=== PATIENT | male | born 1960 | race Caucasian/White ===

== ENCOUNTER 2019-07-04 17:18 | Emergency (ER) | payer BC, SELFPAY ==
--- NOTE | ~2019-07-04 | XR_ITS ---
EXAMINATION: XR chest 2V DATE: 07/04/2019 17:56 INDICATION: Midsternal chest pain TECHNIQUE: PA and lateral views of the chest are obtained. COMPARISON: 12/15/2016 FINDINGS: There is questionable narrowing of the mid thoracic trachea. The lungs are free of acute op acities. There is no pleural effusion or pneumothorax. The cardiomediastinal silhouette is normal. Th ere is mild thoracic spondylosis. IMPRESSION: 1. No acute cardiopulmonary abnormality. 2. Possible narrowing of the mid thoracic trachea. Recommend further evaluation with CT of the chest. Reviewed, dictated and finalized at location A.
[2019-07-04 17:20] VITALS: BP 142/68; PULSE 87; RESP 16; TEMP 36.6; O2SAT 95
--- NOTE | 2019-07-04 17:33 | ECG_ITS ---
Measurements Intervals [place] Rate: 86 P: 17 RI: 114 QRS: 54 QRSD: 112 T: 46 QT: 364 QTc: 436 Interpretive Statements SINUS RHYTHM WITH SHORT RI INTERVAL LOW QRS VOLTAGE IN PRECORDIAL LEADS INCOMPLETE RIGHT BUNDLE BRANCH BLOCK BASELINE ARTIFACT- I, II, III, AVR, AVL, AVF BORDERLINE ECG Electronically Signed On 07-05-2019 8:43:20 CDT by Pedro Bassett D.O.
--- NOTE | 2019-07-04 17:43 | ED.GENADULT ---
HPI - General Adult General Chief complaint: Shortness of Breath/Dyspnea Stated complaint: leg pain, chest pain, sore throat History of Present Illness HPI narrative: Evaristo is a 59M with a past medical history coronary artery disease, A-fib, diabetes, hypertension and hyperlipidemia that was referred to the emergency department by his primary care physician for chest pain, leg heaviness and sore throat. Yesterday morning started noticing some pain and heaviness in his legs. Later he noticed the tight chest pain and sore throat. He denies any nausea, vomiting, shortness of breath and syncope/near-syncope Related Data Home Medications Medication Instructions Recorded Confirmed amitriptyline 50 mg PO DAILY 07/04/19 07/04/19 atorvastatin 40 mg PO HS 07/04/19 07/04/19 dabigatran etexilate [Pradaxa] 150 mg PO DAILY 07/04/19 07/04/19 furosemide 20 mg PO DAILY 07/04/19 07/04/19 gabapentin 300 mg PO TID 07/04/19 07/04/19 insulin aspart U-100 [Novolog 0 unit SUBCUT DAILY 07/04/19 07/04/19 Flexpen U-100 Insulin] insulin detemir U-100 [Levemir 0 unit SUBCUT DAILY 07/04/19 07/04/19 FlexTouch U-100 Insuln] isosorbide mononitrate 30 mg PO DAILY 07/04/19 07/04/19 metformin 850 mg PO DAILY 07/04/19 07/04/19 metoprolol succinate 50 mg PO DAILY 07/04/19 07/04/19 spironolactone 25 mg PO DAILY 07/04/19 07/04/19 tamsulosin 0.4 mg PO DAILY 07/04/19 07/04/19 tramadol 50 mg PO PRN 07/04/19 07/04/19 Allergies Allergy/AdvReac Type Severity Reaction Status Date / Time doxycycline Allergy Unknown Verified 07/04/19 17:58 Review of Systems Constitutional: Constitutional: Denies chills, Reports fatigue, Denies fever(s) and Reports weakness Eyes: Eyes: Reports no additional eye complaints ENT: Reports system reviewed and no additional complaints, except as documented Cardiovascular: Cardiovascular: Reports as per HPI Respiratory: Respiratory: Reports as per HPI Gastrointestinal: Gastrointestinal: Reports as per HPI Genitourinary: Genitourinary: Reports no additional male genitourinary complaints Musculoskeletal: Musculoskeletal: Reports no additional musculoskeletal complaints Integumentary/Breasts: Skin/Breast: Reports system reviewed and no additional complaints, except as docu Neurologic: Reports system reviewed and no additional complaints, except as documented Psychiatric: Psychiatric: Reports no additional psychiatric complaints Endocrine: Endocrine: Reports no additional endocrine complaints Hematologic/Lymphatic: Hematologic/Lymphatic: Reports no additional hematologic/lymphatic complaints Allergic/Immunologic: Allergic/Immunologic: Reports no additional allergic/immunologic complaints Exam Const: General: no acute distress and alert; No confusion Orientation/consciousness: patient oriented x3 Limitations: No altered mental status HENMT: Head: normal to inspection Other: normocephalic, atraumatic, EOMI, moist mucous membranes, normal oropharynx, no lymphadenopathy Eyes: Conjunctivae: conjunctivae normal Pupils: Equal, round and reactive pupils present Neck: Neck: normal visual inspection and no lymphadenopathy Chest: Chest palpation & inspection: normal inspection of the chest Other: No TTP Resp: Effort & Inspection: normal respiratory effort Auscultation: clear to auscultation bilaterally and no wheezes Cardio: Rate: regular rate Rhythm: regular rhythm Heart sounds: no murmurs GI: Inspection: non-distended GI Palp: Yes Soft to palpation and No Tenderness to palpation present (GI) Skin: General skin exam: normal color Rashes: no rashes Neuro: General: patient oriented x3 and moves all extremities Extrem: General: normal to inspection Psych: Mental Status: mental status grossly normal Course Course Emergency Course: Evaristo was seen and evaluated. Given his medical history I was concerned for a cardiac etiology. I ordered CXR, EKG and labs. EKG was normal sinus rhythm with a rate of 86, No ST
[2019-07-04 17:49] LABS: Basophils Absolute Auto 0.08 K/mm3 (0.00-0.10); Basophils Percent Auto 1.2 % (0.0-1.0); Eosinophils Absolute Auto 0.17 K/mm3 (0.02-0.50); Eosinophils Percent Auto 2.6 % (1.0-6.0); Hematocrit 38.1 % (40.0-54.0); Hemoglobin 12.4 g/dL (14.0-18.0); Immature Granulocyte Absolute 0.02 K/mm3 (0.00-0.00); Immature Granulocyte Percent A 0.3 % (0.0-0.0); Lymphocytes Absolute Auto 1.87 K/mm3 (1.10-4.50); Lymphocytes Percent Auto 28.1 % (18.0-42.0); Mean Corpuscular HGB Conc 32.5 g/dL (32.0-36.0); Mean Corpuscular Hemoglobin 28.2 pg (27.0-31.0); Mean Corpuscular Volume 86.8 fL (78.0-102.0); Mean Platelet Volume 10.9 fl (8.7-11.0); Monocytes Percent Auto 13.5 % (2.0-11.0); Neutrophils Absolute Auto 3.6 K/mm3 (1.7-7.2); Neutrophils Percent Auto 54.3 % (50.0-70.0); Platelet Count Result 287 K/mm3 (150-420); Red Blood Count 4.39 M/mm3 (4.70-6.10); Red Cell Distribution Width 13.7 % (11.6-14.4); White Blood Count 6.7 K/mm3 (4.8-10.8)
[2019-07-04] MEDS: NITROGLYCERIN SL 0.4 MG TABLET SUBLINGUAL (17:55)
[2019-07-04] MEDS: ASPIRIN 81 MG CHEWABLE TABLET 324 MG PO (17:55)
[2019-07-04 18:02] LABS: INR 1.2; Prothrombin Time 11.9 Seconds (9.64-11.0)
[2019-07-04 18:07] LABS: Alanine Aminotransferase 31 U/L (16-63); Albumin Level 3.3 g/dL (3.4-5.0); Alkaline Phosphatase 76 U/L (46-116); Anion Gap 14.4 mmol/L (7-16); Aspartate Amino Transferase 15 U/L (15-37); Bilirubin,Total 0.2 mg/dL (0.00-1.00); Blood Urea Nitrogen 13 mg/dL (7-18); Calcium 8.9 mg/dL (8.5-10.1); Carbon Dioxide 27 mmol/L (21-32); Chloride 102 mmol/L (98-108); Estimated Glomerular Filt Rate > 60; Glucose 175 mg/dL (70-99); Osmolality Calculated 292 mOsm/kg (285-295); Potassium 4.4 mmol/L (3.5-5.1); Sodium 139 mmol/L (136-145)
[2019-07-04 18:09] LABS: Troponin I < 0.02 ng/mL (0.00-0.056)
[2019-07-04 18:09] LABS: Influenza Control Valid (Valid)
[2019-07-04 18:10] LABS: BNP 44.3 pg/mL (0-100)
[2019-07-04 18:54] VITALS: BP 105/56; PULSE 84; RESP 20; O2SAT 98
== END 2019-07-04 18:55 | disposition home or self-care (01) ==
PROVIDERS: Emergency Provider Family Medicine; PCP Family Medicine
DX: B34.9 Viral infection, unspecified (principal)
CPT/HCPCS: 36415; 71046; 80053; 83880; 84484; 85025; 85610; 87804; 93005; 99283; 99284; A9270

== ENCOUNTER 2019-08-05 04:02 | Emergency (ER) | payer BC, SELFPAY ==
--- NOTE | ~2019-08-05 | XR_ITS ---
EXAMINATION: XR wrist RT min 3V EXAM DATE: 08/05/2019 05:09 INDICATION: Initial encounter following injury, with pain of the right wrist. TECHNIQUE: Right wrist frontal, frontal with ulnar deviation, oblique and lateral projections obtain ed and reviewed. There is no prior study for comparison. FINDINGS: Mildly widened scapholunate joint space, could indicate chronic partial scapholunate dissoc iation. There are no acute fractures or dislocations identified. There is no subcutaneous gas. Ther e are arterial calcifications, arteriosclerosis. Mild right wrist primary osteoarthritis, with scapho lunate settling. There are no radiopaque foreign bodies. IMPRESSION: 1. XR wrist RT min 3V exam without acute osseous findings. 2. Mildly wide scapholunate joint space, possible partial dissociation. 3. Mild polyarticular osteoarthritis with scapholunate settling. Reviewed, dictated and finalized at location A.
--- NOTE | ~2019-08-05 | XR_ITS ---
EXAMINATION: XR knee RT 2V EXAM DATE: 08/05/2019 05:08 INDICATION: Initial encounter following injury, with pain of the right knee. Fall. TECHNIQUE: Frontal and lateral projections of the right knee. There is no prior study for compariso n. FINDINGS: There is left knee arthroplasty in position. There are regions of some periprosthetic luce ncy along the lateral aspects of the femoral component, possible chronic loosening. Are there any [place] or studies for correlation? No osseous or hardware fracture. There is density seen on the lateral pro jection which is most likely a sizable joint effusion. IMPRESSION: 1. Probable sizable joint effusion. 2. Intact arthroplasty, but possibly with some chronic loosening of femoral component. Reviewed, dictated and finalized at location A. IMPRESSION: 1. Probable sizable joint effusion. 2. Intact arthroplasty, but possibly with some chronic loosening of femoral co mponent.
--- NOTE | ~2019-08-05 | XR_ITS ---
EXAMINATION: XR thoracic spine 3V EXAM DATE: 08/05/2019 05:09 INDICATION: Mid back pain. Fall. Initial encounter. TECHNIQUE: Frontal and lateral projections of the thoracic spine as well as lateral swimmers projecti on of the upper thoracic spine for interpretation. There is no prior study for comparison. FINDINGS: Patient has diffuse idiopathic skeletal hyperostosis (DISH). There are no acute fractures identified. The vertebral bodies are aligned in the AP dimension. Vertebral body heights appear maint ained. No acute fracture line identified. IMPRESSION: 1. Diffuse idiopathic skeletal hyperostosis. 2. Mild thoracic spondylosis. Reviewed, dictated and finalized at location A.
--- NOTE | ~2019-08-05 | XR_ITS ---
EXAMINATION: XR lumbar spine 2-3V EXAM DATE: 08/05/2019 05:08 INDICATION: Initial encounter following injury, with pain of the lower back. Fall. TECHNIQUE: Lumber spine frontal, lateral, lateral L5-S1 projections for interpretation. There is no prior study for comparison. FINDINGS: There is mild to moderate lower lumbar facet arthropathy. The vertebral bodies are aligned in the AP dimension. Mild to moderate disc disease at the thoracolumbar region, with evidence of dif fuse idiopathic skeletal hyperostosis. Mild lumbar disc disease. No acute fracture line identified. S acrum, sacroiliac joints, sacral arcuate lines are intact. IMPRESSION: 1. No acute fracture line suspected. 2. Mild to moderate thoracolumbar spondylosis. 3. Lower thoracic diffuse idiopathic skeletal hyperostosis. Reviewed, dictated and finalized at location A.
[2019-08-05 04:05] VITALS: BP 120/65; PULSE 82; RESP 18; TEMP 36.6; O2SAT 98
--- NOTE | 2019-08-05 04:26 | ED.GENADULT ---
HPI - General Adult General Chief complaint: Fall Stated complaint: PAIN FROM FALL History of Present Illness HPI narrative: HPI narrative: Evaristo is a 59M with a past medical history coronary artery disease, A-fib, diabetes, hypertension and hyperlipidemia that presented to the ED for a fall. He fell yesterday at 1000 (18 hours ago) and has had pain in his entire back, right wrist and right knee since. He was doing yardwork when he tripped and fell. He did not feel lightheaded or dizzy before falling. He did not hit his head or neck. He was able to get up and was ambulatory since that time. No headache or neck pain. No loss of bowel or bladder control, numbness, or tingling. Related Data Home Medications Medication Instructions Recorded Confirmed amitriptyline 50 mg PO DAILY 07/04/19 08/05/19 atorvastatin 40 mg PO HS 07/04/19 08/05/19 dabigatran etexilate [Pradaxa] 150 mg PO DAILY 07/04/19 08/05/19 furosemide 20 mg PO DAILY 07/04/19 08/05/19 gabapentin 300 mg PO TID 07/04/19 08/05/19 insulin aspart U-100 [Novolog 30 unit SUBCUT DAILY 07/04/19 08/05/19 Flexpen U-100 Insulin] insulin detemir U-100 [Levemir 30 unit SUBCUT DAILY 07/04/19 08/05/19 FlexTouch U-100 Insuln] isosorbide mononitrate 30 mg PO DAILY 07/04/19 08/05/19 metformin 850 mg PO DAILY 07/04/19 08/05/19 metoprolol succinate 50 mg PO DAILY 07/04/19 08/05/19 spironolactone 25 mg PO DAILY 07/04/19 08/05/19 tamsulosin 0.4 mg PO DAILY 07/04/19 08/05/19 tramadol 50 mg PO PRN 07/04/19 08/05/19 Allergies Allergy/AdvReac Type Severity Reaction Status Date / Time doxycycline Allergy Unknown Verified 07/04/19 17:58 Review of Systems Constitutional: Constitutional: Reports no additional constitutional complaints Cardiovascular: Cardiovascular: Reports no additional cardiovascular complaints Respiratory: Respiratory: Reports no additional respiratory complaints Gastrointestinal: Gastrointestinal: Reports no additional gastrointestinal complaints Genitourinary: Genitourinary: Reports no additional male genitourinary complaints Musculoskeletal: Musculoskeletal: Reports as per HPI Integumentary/Breasts: Comments: abrasion on right knee Neurologic: Reports system reviewed and no additional complaints, except as documented Psychiatric: Psychiatric: Reports no additional psychiatric complaints Endocrine: Endocrine: Reports no additional endocrine complaints Hematologic/Lymphatic: Hematologic/Lymphatic: Reports no additional hematologic/lymphatic complaints Allergic/Immunologic: Allergic/Immunologic: Reports no additional allergic/immunologic complaints [facility] I have reviewed the chart for the PMH, PSH, FH, and SH. Exam Const: General: no acute distress and alert; No confusion Orientation/consciousness: patient oriented x3 Limitations: No altered mental status HENMT: Other: normocephalic, atraumatic Eyes: Conjunctivae: conjunctivae normal Pupils: Equal, round and reactive pupils present Neck: Other: No TTP on the midline, able to touch chin to each shoulder without neck or shooting apin, able to fully extend and flex neck without pain Resp: Effort & Inspection: normal respiratory effort, not labored, no retractions and no use of accessory muscles Cardio: Rate: regular rate Heart sounds: no murmurs GI: GI Palp: Yes Soft to palpation and No Tenderness to palpation present (GI) Back/Spine/Pelvis: Other: TTP in the entire lumbar spine in the midline as well as the paraspinal musculature, mildly decreased ROM Skin: General skin exam: normal color Other: Small abriason on right knee Neuro: General: patient oriented x3 and moves all extremities Other: Peripheral sensation intact on the right hand in all dermatomes, peripheral sensation intact on the right leg. 5/5 electric organ assembler strength bilaterally, able to move wrist in all planes of motion with good strenght. Normal strength in the lower extremities. Able to ambulate slowly d/t pain in the back but
[2019-08-05] MEDS: KETOROLAC (*BKC) 60 MG/2 ML VIAL 30 MG IM (05:20)
--- NOTE | 2019-08-05 05:27 | PC.NURSE ---
0445 pt in xray department. 0510 pt returned from xray department.
[2019-08-05 05:49] VITALS: BP 134/78; PULSE 75; RESP 20; TEMP 37.1; O2SAT 98
== END 2019-08-05 05:54 | disposition home or self-care (01) ==
PROVIDERS: Emergency Provider Family Medicine; PCP Family Medicine
DX: T14.8XXA Other injury of unspecified body region, initial encounter (principal); S23.3XXA Sprain of ligaments of thoracic spine, initial encounter; W19.XXXA Unspecified fall, initial encounter
CPT/HCPCS: 72072; 72100; 73110; 73560; 96372; 99282; 99284; J1885

== ENCOUNTER 2021-04-20 16:05 | Emergency (ER) | payer BC, SELFPAY ==
--- NOTE | ~2021-04-20 | CT_ITS ---
EXAMINATION: CT chest abdomen pelvis w con EXAM DATE: 04/20/2021 18:45 INDICATION: Abdominal pain + GI loss. N/V/D COVID+ with wheezing dizziness and cough . TECHNIQUE: Spiral CT of the chest, abdomen and pelvis was performed following intravenous injection o f 100 mL Omnipaque 350. Axial, coronal and sagittal images chest, abdomen and pelvis were reviewed. Coronal maximum intensity pixel images of chest reviewed. The dose-length product (DLP) for this ex amination was 1866.04 mGy-cm. The exposure was tailored according to patient size (auto mA exposure control), and iterative reconstruction (ASIR) was used as additional dose reduction technique. There is no prior study for comparison. FINDINGS: CHEST: Small to moderate amount of right-sided, small amount of left-sided airspace disease consiste nt with COVID pneumonia. No central pulmonary emboli. There are no pleural or pericardial effusions. Tracheobronchial tree is patent. There is no mediastinal, hilar or axillary lymphadenopathy. Th ere is no pneumothorax. Mild cardiomegaly. There are likely coronary arterial stent or stents. Cor relate with prior cardiac history. ABDOMEN PELVIS: The liver, spleen, adrenal glands and pancreas are unremarkable. Gallbladder is unr emarkable. No biliary obstruction. Portal and splenic veins are patent. Probable 4 mm left calyceal stone. Kidneys enhance symmetrically. There is no hydronephrosis. The prostate is unremarkable. The bladder is unremarkable. There is no retroperitoneal or pelvic lymphadenopathy. There is mild scattered arteriosclerotic disease. There are no findings to suggest appendicitis. There is small sliding gastroesophageal hiatal hernia . There is expected amount of colonic stool. No free intraperitoneal gas. There are no osteoblas tic or osteolytic lesions identified. IMPRESSION: 1. Small to moderate right, small left acute airspace disease consistent with acute COVID pneumonia. 2. Mild cardiomegaly. 3. Probable left nephrolithiasis. 4. Small gastroesophageal hiatal hernia. Reviewed, dictated and finalized at location A. [employer]
[2021-04-20 17:03] VITALS: BP 122/98; PULSE 125; RESP 20; TEMP 37.7; O2SAT 94
--- NOTE | 2021-04-20 17:05 | ECG_ITS ---
Measurements Intervals [place] Rate: 129 P: NM: 0 QRS: 77 QRSD: 105 T: -16 QT: 324 QTc: 476 Interpretive Statements ATRIAL FIBRILLATION WITH RAPID VENTRICULAR RESPONSE LOW QRS VOLTAGE IN PRECORDIAL LEADS INCOMPLETE RIGHT BUNDLE BRANCH BLOCK BORDERLINE ST-T WAVE ABNORMALITY- INFERIOR LEADS BASELINE ARTIFACT- I, II, III, AVR, AVL, AVF ABNORMAL ECG Electronically Signed On 04-21-2021 6:28:22 DISABILITY BENEFITS SPECIALIST by Pedro Bassett D.O.
[2021-04-20 17:11] VITALS: RESP 20
[2021-04-20 17:40] LABS: Basophils Absolute Auto 0.01 K/mm3 (0.00-0.10); Basophils Percent Auto 0.2 % (0.0-1.0); Hematocrit 42.2 % (40.0-54.0); Hemoglobin 13.5 g/dL (14.0-18.0); Immature Granulocyte Absolute 0.03 K/mm3 (0.00-0.00); Immature Granulocyte Percent A 0.7 % (0.0-0.0); Lymphocytes Absolute Auto 0.79 K/mm3 (1.10-4.50); Lymphocytes Percent Auto 18.1 % (18.0-42.0); Mean Corpuscular Hemoglobin 27.4 pg (27.0-31.0); Mean Corpuscular Volume 85.8 fL (78.0-102.0); Mean Platelet Volume 11.8 fl (8.7-11.0); Monocytes Absolute Auto 0.39 K/mm3 (0.10-0.90); Monocytes Percent Auto 8.9 % (2.0-11.0); Neutrophils Absolute Auto 3.1 K/mm3 (1.7-7.2); Neutrophils Percent Auto 72.1 % (50.0-70.0); Platelet Count Result 190 K/mm3 (150-420); Red Blood Count 4.92 M/mm3 (4.70-6.10); Red Cell Distribution Width 14.3 % (11.6-14.4); White Blood Count 4.4 K/mm3 (4.8-10.8)
[2021-04-20] MEDS: ACETAMINOPHEN 325 MG TABLET 650 MG PO (17:49)
[2021-04-20] MEDS: methylPREDNISolone SOD SUCC 125 MG VIAL IV PUSH (17:50)
[2021-04-20] MEDS: UMECLIDINIUM BROMIDE 62.5 MCG ELLIPTA 1 PUFF (17:50)
[2021-04-20] MEDS: ALBUTEROL SULFATE (*SP) INHALER 4 PUFF INHALATION ×2 (17:50→20:29)
[2021-04-20] MEDS: SODIUM CHLORIDE 0.9% IV 1,000 ML 999 ML IV CONT ×2 (17:50→20:18)
[2021-04-20] MEDS: ONDANSETRON INJ 4 MG/2 ML VIAL IV PUSH ×2 (17:50→20:19)
[2021-04-20] MEDS: PANTOPRAZOLE SODIUM IV 40 MG VIAL IV PUSH (17:50)
[2021-04-20 18:07] LABS: Alanine Aminotransferase 38 U/L (16-63); Albumin Level 2.7 g/dL (3.4-5.0); Alkaline Phosphatase 74 U/L (46-116); Anion Gap 13 mmol/L (8-16); Aspartate Amino Transferase 24 U/L (15-37); Bilirubin,Total 0.6 mg/dL (0.00-1.00); Blood Urea Nitrogen 14 mg/dL (7-18); Calcium 8.6 mg/dL (8.5-10.1); Carbon Dioxide 25 mmol/L (21-32); Chloride 96 mmol/L (98-108); Estimated CRCL calculation 93 ml/min; Estimated Glomerular Filt Rate > 60; Glucose 223 mg/dL (70-99); Lipase 263 U/L (73-393); Osmolality Calculated 285 mOsm/kg (285-295); Potassium 3.6 mmol/L (3.5-5.1); Sodium 134 mmol/L (136-145); Total Protein 7.3 g/dL (6.4-8.2)
[2021-04-20 18:16] LABS: Base Excess ABG -1.5 mmol/L (0-2); HCO3 ABG 22.1 mmol/L (23-29); Oxygen Content ABG 17.3 %vol (16.0-22.0); Oxyhemoglobin 92.6 % (94-100); PCO2 ABG 33.7 mmHg (35-45); PO2 ABG 66.9 mmHg (80-90); Total Hemoglobin 13.3 g/dL (12.0-18.0); pH ABG 7.43 (7.35-7.45)
[2021-04-20 18:19] LABS: Modified Allen's Test Pass; Site Drawn LEFT RADIAL
[2021-04-20 18:20] LABS: Device ROOM AIR
[2021-04-20 18:44] LABS: Troponin I 11.1 ng/L (0.00-60.4)
[2021-04-20 18:59] LABS: Influenza A QL RT-PCR Negative (Negative); Influenza B QL RT-PCR Negative (Negative); SARS-CoV-2 RNA PCR Positive (Negative)
--- NOTE | 2021-04-20 19:15 | PC.NURSE ---
Pt. report from Sophy FIGUEROA. Pt. resting comfortable on stretcher. Awaiting urine specimen.
--- NOTE | 2021-04-20 19:38 | ECG_ITS ---
Measurements Intervals [place] Rate: 123 P: IA: 0 QRS: 66 QRSD: 101 T: -2 QT: 322 QTc: 462 Interpretive Statements ATRIAL FLUTTER/TACHYCARDIA WITH RAPID VENTRICULAR RESPONSE INCOMPLETE RIGHT BUNDLE BRANCH BLOCK BORDERLINE ST-T WAVE ABNORMALITY- INFERIOR LEADS BASELINE ARTIFACT- I, II, III, AVR, AVL, AVF, V1-V6 ABNORMAL ECG Electronically Signed On 04-21-2021 8:04:10 AD OPERATIONS SPECIALIST by Pedro Bassett D.O.
[2021-04-20 19:46] LABS: Add Urine Microscopic? YES; Appearance Urine Clear (Clear); Bilirubin Urine Negative (Negative); Blood Urine Negative (Negative); Color Urine Yellow (Yellow); Glucose Urine UA 3+ (Negative); Ketones Urine 3+ (Negative); Leukocyte Esterase Ur Negative LEU/UL (Negative); Nitrate Urine Negative (Negative); Protein Urine 3+ (Negative); Urobilinogen Urine 0.2 mg/dL (0.2-1.0)
--- NOTE | 2021-04-20 19:46 | PC.NURSE ---
Pt placed on Community Education Coordinator at this time.
[2021-04-20 19:53] LABS: Bacteria Urine None seen /hpf; RBC Urine None seen /hpf (0-2); Squamous Epithelial Cell Urine Rare /hpf (Few); WBC Urine None seen /hpf (0-3)
[2021-04-20] MEDS: MORPHINE SULFATE (*CRX) 2 MG/ML INJ IV PUSH (20:19)
[2021-04-20] MEDS: guaiFENesin 12 HR 600 MG TABCR PO (20:35)
[2021-04-20 20:41] LABS: Troponin I 13.8 ng/L (0.00-60.4)
[2021-04-20 22:01] VITALS: PULSE 128
[2021-04-20] MEDS: METOPROLOL TARTRATE INJ 5 MG/5 ML VIAL IV PUSH ×2 (22:01→23:09)
[2021-04-20 22:45] VITALS: O2SAT 97
--- NOTE | 2021-04-20 22:59 | ED.NAVMDI ---
HPI - Nausea/Vomiting/Diarrhea General Chief complaint: Nausea/Vomiting/Diarrhea Stated complaint: Diarrhea,Vomiting,headaches,stomach aches,cough Time Seen by Provider: 04/20/21 16:08 Source: patient and RN notes reviewed Mode of arrival: ambulatory Limitations: no limitations History of Present Illness MD elicited complaint: nausea and vomiting Onset (ago): day(s) (1) Description of vomiting: food contents Associated nausea: Yes Associated abdominal pain: Yes Location of pain: diffuse Pain consistency: constant Severity: mild Pain scale (0-10): 4 Quality: cramping Exacerbating factors: none Relieving factors: none Related Data Home Medications Medication Instructions Recorded Confirmed amitriptyline 100 mg PO DAILY 07/04/19 04/20/21 atorvastatin 40 mg PO HS 07/04/19 04/20/21 dabigatran etexilate [Pradaxa] 150 mg PO BID 07/04/19 04/20/21 furosemide 20 mg PO BID 07/04/19 04/20/21 gabapentin 300 mg PO TID 07/04/19 04/20/21 insulin aspart U-100 [Novolog 45 unit SUBCUT TID 07/04/19 04/20/21 Flexpen U-100 Insulin] insulin detemir U-100 [Levemir 45 unit SUBCUT HS 07/04/19 04/20/21 FlexTouch U-100 Insuln] metformin 850 mg PO BID 07/04/19 04/20/21 metoprolol succinate 100 mg PO DAILY 07/04/19 04/20/21 spironolactone 25 mg PO DAILY 07/04/19 04/20/21 tramadol 50 mg PO TID PRN 07/04/19 04/20/21 furosemide 40 mg PO DAILY 04/20/21 04/20/21 Allergies Allergy/AdvReac Type Severity Reaction Status Date / Time doxycycline Allergy Unknown Verified 04/20/21 17:13 Review of Systems Review of Systems: All systems reviewed & are unremarkable except as noted in HPI and below PMFSH Past Medical History Medical History (Updated 05/15/21 @ 21:30 by Keisha Smith MD) Atrial fibrillation, chronic COPD (chronic obstructive pulmonary disease) Gastroenteritis Exam Const: General: no acute distress and alert Nutritional Appearance: obese Orientation/consciousness: patient oriented x3 HENMT: Head: normal to inspection Ears: external ears normal and TM's normal bilaterally General nose exam: Normal external nose present and Normal nares present Mouth: Yes lip normal and Yes moist mucous membranes Eyes: Cornea: corneas normal Pupils: Equal, round and reactive pupils present EOM: EOMs intact bilaterally Neck: Neck: normal visual inspection Chest: Chest palpation & inspection: normal inspection of the chest Resp: Effort & Inspection: normal respiratory effort Auscultation: crackles and rhonchi Cardio: Rate: regular rate Rhythm: regular rhythm GI: GI Palp: Yes Soft to palpation and No Tenderness to palpation present (GI) : General: Yes bladder normal to palpation and Yes no CVA tenderness Male General Exam: Yes normal external exam Back/Spine/Pelvis: Back: no CVA tenderness Skin: General skin exam: normal color Rashes: no rashes Neuro: General: patient oriented x3, moves all extremities, no meningeal signs, no focal motor deficits and CN's II-XI intact bilaterally Extrem: General: normal to inspection and no pedal edema Psych: Appearance: well kempt Mental Status: mental status grossly normal Affect: normal affect Attitude: cooperative Thought content: Yes Normal thought content present Course Course Emergency Course: Pt was insistent on going home. he was significantly improved. Reevaluation(s) Reevaluation #1: NIKKIS. comfortable pt. Date: 04/20/21 Time: 17:06 Vital Signs Vital signs: Vital Signs Temperature 37.7 C H 04/20/21 17:03 Pulse Rate 125 H 04/20/21 17:03 Respiratory Rate 20 04/20/21 17:03 Blood Pressure 122/98 H 04/20/21 17:03 Pulse Oximetry 94 04/20/21 17:03 Temperature 36.2 C L 04/20/21 23:43 Pulse Rate 104 H 04/20/21 23:43 Respiratory Rate 20 04/20/21 23:43 Blood Pressure 159/107 H 04/20/21 23:43 Pulse Oximetry 98 04/20/21 23:43 MDM - Nausea/Vomiting/Diarrhea Differential Diagnosis Differential diagnosis: Likely gastroenteritis and dehydr
[2021-04-20 23:09] VITALS: PULSE 119
[2021-04-20 23:43] VITALS: BP 159/107; PULSE 104; RESP 20; TEMP 36.2; O2SAT 98
== END 2021-04-21 00:06 | disposition home or self-care (01) ==
PROVIDERS: Emergency Provider Emergency Medicine; PCP Family Medicine
DX: U07.1 COVID-19 (principal); K52.9 Noninfective gastroenteritis and colitis, unspecified; I48.20 Chronic atrial fibrillation, unspecified; J18.9 Pneumonia, unspecified organism; J44.9 Chronic obstructive pulmonary disease, unspecified
CPT/HCPCS: 36415; 36600; 71260; 74177; 80053; 81001; 82805; 83690; 84484; 85025; 87040; 87081; 87502; 87880; 93005; 96361; 96365; 96375; 96376; 99283; 99284; A9270; C9113; C9803; J0696; J2270; J2405; J2930; J7030; Q9967; U0003; U0005

== ENCOUNTER 2022-08-31 08:04 | Outpatient (CLI) | payer BC, SELFPAY ==
--- NOTE | ~2022-08-31 | XR_ITS ---
XR_[id number] 08/31/2022 08:28 Indication: Neck pain. Procedure: 4 views cervical spine Comparison: No prior studies for comparison. Findings: Lateral views are limited. No acute fracture or traumatic malalignment. No prevertebral sof t tissue swelling. Odontoid process is normal. There is multilevel uncinate and facet hypertrophy. Impression: 1: Moderate cervical spondylosis. Limited examination. Consider correlation with MRI. Reviewed, dictated and finalized at location L. Impression: 1: Moderate cervical spondylosis. Limited examination. Consider correlation wit h MRI.
== END 2022-08-31 08:05 | disposition home or self-care (01) ==
PROVIDERS: PCP Family Medicine; Visit Provider Family Medicine
DX: M54.2 Cervicalgia (principal); M43.02 Spondylolysis, cervical region
CPT/HCPCS: 72040

== ENCOUNTER 2023-12-08 07:27 | Emergency (ER) | payer OTHER, SELFPAY ==
[2023-12-08] VITALS (31 sets, daily range): BP systolic 110–164; BP diastolic 52–106; PULSE 78–103; RESP 18–35; TEMP 36.3–36.7; O2SAT 94–100
--- NOTE | ~2023-12-08 | CT_ITS ---
EXAMINATION: CTA chest PE protocol DATE: 12/08/2023 08:39 INDICATION: Shortness of breath. Elevated d-dimer. TECHNIQUE: Computed tomography (CT) pulmonary angiogram of the chest was performed with 100 mL Omnipa que-350 intravenous contrast. Additional 3D reconstructions utilizing coronal maximum intensity proje ction (MIP) were performed. Automated exposure control and iterative reconstruction technique were em ployed. The dose-length product was 939.72 mGy-cm. COMPARISON: None FINDINGS: No pulmonary bruising. There are scattered bilateral groundglass opacities in both lungs most promine nt in the right lung. In the right lung there are few scattered smooth septal lines at the apex and l ower lung zone consistent with mild pulmonary edema. Also the right lung are multiple small ill-defin ed centrilobular nodules which is more concerning for aspiration or pneumonia. No pleural effusion. M ild thyromegaly. Atherosclerotic coronary artery callus cases. No pericardial effusion. Thoracic aort a normal caliber with no dissection. No pathologically enlarged thoracic lymphadenopathy. Bilateral g ynecomastia. Visualized upper abdomen is unremarkable. Moderate thoracic spondylosis with bridging os teophytes at multiple levels consistent with diffuse idiopathic skeletal hyperostosis (DISH). IMPRESSION: 1. No pulmonary embolism. 2. Bilateral lung disease, right greater the left which could represent pulmonary edema, aspiration, pneumonia or some combination thereof. 2. Cardiomegaly. Reviewed, dictated and finalized at location A. IMPRESSION: 1. No pulmonary embolism. 2. Bilateral lung disease, right greater the left which could represent pulmona ry edema, aspiration, pneumonia or some combination thereof. 2. Cardiomegaly.
--- NOTE | ~2023-12-08 | XR_ITS ---
EXAMINATION: XR chest 1V portable DATE: 12/08/2023 08:13 INDICATION: Shortness of breath. TECHNIQUE: A single frontal view of the chest was obtained on 2 radiographs. COMPARISON: Chest 2 views 07/04/2019, chest CT 04/20/2021 FINDINGS: Sensitivity is decreased by obesity. There is a diffuse interstitial pattern in the lungs. There are airspace opacities in all right lung zones. No pleural effusion or pneumothorax. Cardiomega ly is noted. IMPRESSION: 1. Diffuse lung disease, right worse than left, consistent with pulmonary edema versus pneumonia. 2. Cardiomegaly. Reviewed, dictated and finalized at location A.
--- NOTE | 2023-12-08 07:28 | ECG_ITS ---
Test Date: 2023-12-08 07:37:00 Measurements Intervals [place] Rate: 87 P: 59 RI: 200 QRS: 69 QRSD: 108 T: 37 QT: 375 QTc: 452 Interpretive Statements SINUS RHYTHM INCOMPLETE RIGHT BUNDLE BRANCH BLOCK [90+ ms QRS DURATION, TERMINAL R IN V1/V2, 40+ ms S IN I/aVL/V4/V5/V6] BASELINE ARTIFACT LIMITS INTERPRETATION No previous ECG available for comparison Electronically Signed On 12-08-2023 14:19:33 CDT by Ada Salcedo M.D.
--- NOTE | 2023-12-08 07:43 | PC.NURSE ---
Upon arrival to ED patient's o2 sat found in the 69% on room air, patient was not able to form sentences or state single words at at time. Patient placed on 10L via non rebreather. Patient is now able to speak in full sentences but still states he feels short of breath. o2 titrated down to 8L. Cardiopulmonary at bedside administering breathing treatment.
[2023-12-08] MEDS: IPRATROPIUM 0.5 MG/ALBUTEROL SULFATE 2.5 MG AMPUL.NEB 3 ML INHALATION (07:46)
[2023-12-08 07:56] LABS: Basophils Absolute Auto 0.07 K/mm3 (0.00-0.10); Basophils Percent Auto 0.6 % (0.0-1.0); Eosinophils Absolute Auto 0.25 K/mm3 (0.02-0.50); Eosinophils Percent Auto 2.3 % (1.0-6.0); Hematocrit 38.8 % (40.0-54.0); Hemoglobin 11.8 g/dL (14.0-18.0); Immature Granulocyte Absolute 0.05 K/mm3 (0.00-0.00); Immature Granulocyte Percent A 0.5 % (0.0-0.0); Lymphocytes Absolute Auto 1.87 K/mm3 (1.10-4.50); Lymphocytes Percent Auto 17.2 % (18.0-42.0); Mean Corpuscular HGB Conc 30.4 g/dL (32-36); Mean Corpuscular Hemoglobin 26.9 pg (27.0-31.0); Mean Corpuscular Volume 88.6 fL (78.0-102.0); Mean Platelet Volume 11.3 fl (8.7-11.0); Neutrophils Absolute Auto 7.43 K/mm3 (1.70-7.20); Neutrophils Percent Auto 68.4 % (50.0-70.0); Platelet Count Result 226 K/mm3 (150-420); Red Blood Count 4.38 M/mm3 (4.70-6.10); Red Cell Distribution Width 15.6 % (11.6-14.4); White Blood Count 10.9 K/mm3 (4.8-10.8)
[2023-12-08] MEDS: MAGNESIUM SULF 2 GM/WATER 50ML 2 GM/50 ML BAG IVPB (07:59)
[2023-12-08] MEDS: methylPREDNISolone SOD SUCC 125 MG VIAL IV PUSH (08:00)
[2023-12-08 08:03] LABS: Partial Thromboplastin Time 30.2 Sec (23.9-30.70); Prothrombin Time 10.6 Seconds (9.50-12.1)
[2023-12-08 08:04] LABS: D Dimer 0.52 mg/L (0.19-0.50)
[2023-12-08 08:10] LABS: Lactic Acid Reflex 1.9 mmol/L (0.4-2.0)
[2023-12-08 08:11] LABS: Alanine Aminotransferase 42 U/L (16-63); Albumin Level 3.1 g/dL (3.4-5.0); Alkaline Phosphatase 99 U/L (46-116); Anion Gap 7 mmol/L (4-12); Aspartate Amino Transferase 27 U/L (15-37); Bilirubin,Total 0.5 mg/dL (0.00-1.00); Blood Urea Nitrogen 17 mg/dL (7-18); Calcium 9.3 mg/dL (8.5-10.1); Carbon Dioxide 33 mmol/L (21-32); Chloride 99 mmol/L (98-108); Estimated CRCL calculation 82 ml/min; Estimated Glomerular Filt Rate > 60; Glucose 126 mg/dL (70-99); Magnesium 1.7 mg/dL (1.8-2.4); NT Pro B Type Natriuretic Pept 391 pg/mL (0-125); Osmolality Calculated 291 mOsm/kg (285-295); Potassium 4.7 mmol/L (3.5-5.1); Sodium 139 mmol/L (136-145); Total Protein 7.6 g/dL (6.4-8.2)
[2023-12-08 08:12] LABS: Troponin I 233.9 ng/L (0.00-60.4)
[2023-12-08 08:13] LABS: HCO3 ABG 28.4 mmol/L (23-29); Oxygen Content ABG 23.3 %vol (16.0-22.0); Oxygen Saturation ABG 99.2 % (95-97); PCO2 ABG 46.1 mmHg (35-45); pH ABG 7.41 (7.35-7.45)
[2023-12-08 08:15] LABS: Modified Allen's Test Pass; Site Drawn RIGHT RADIAL
[2023-12-08 08:16] LABS: Device NON-REBREATHER MASK
--- NOTE | 2023-12-08 08:22 | PC.NURSE ---
checked on pt to see if they were able to give urine; stated they were not able to; gave urinal and would check back in on him in a little bit -> covid test administered during this time
[2023-12-08 08:36] LABS: Add Urine Microscopic? YES; Appearance Urine Clear (Clear); Bilirubin Urine Negative (Negative); Blood Urine Negative (Negative); Color Urine Yellow (Yellow); Glucose Urine UA Negative (Negative); Ketones Urine Negative (Negative); Leukocyte Esterase Ur Negative LEU/UL (Negative); Nitrate Urine Negative (Negative); Protein Urine 1+ (Negative); pH Urine 6.5 (5.0-8.0)
[2023-12-08] MEDS: FUROSEMIDE INJ 40 MG/4 ML VIAL IV PUSH (08:39)
[2023-12-08 08:40] LABS: Bacteria Urine Rare /hpf; Other Sediment Urine Spermatazoa /hpf; RBC Urine None seen /hpf (0-2); Squamous Epithelial Cell Urine Rare /hpf (Few); WBC Urine None seen /hpf (0-3)
[2023-12-08 08:59] LABS: SARS-CoV-2 RNA PCR Negative (Negative)
[2023-12-08 09:01] LABS: Influenza A QL RT-PCR Negative (Negative); Influenza B QL RT-PCR Negative (Negative); RSV RNA, RT-PCR Negative (Negative)
--- NOTE | 2023-12-08 09:36 | ED.SOB ---
HPI - SOB/Dyspnea General Chief Complaint: Shortness of Breath/Dyspnea Stated Complaint: sob Time Seen by Provider: 12/08/23 07:28 Source: patient and family Mode of arrival: ambulatory Limitations: no limitations History of Present Illness HPI Narrative: this is a 63-year-old male with a history of atrial fibrillation, CAD with hyperlipidemia hypertension presents with 2 day history of shortness of breath increasing over the last few hours, denies chest pain. Patient recently had a heart ablation to correct his atrial fibrillation. Currently no fever chills no abdominal pain no nausea vomiting no diaphoresis. Patient states that he became short of breath yesterday with some minimal exertion. MD elicited complaint: shortness of breath Pertinent past history: congestive heart failure and diabetes Onset (ago): day(s) Context: occurred during exertion Timing: constant Severity: severe Exacerbating factors: lying flat and exertion Relieving factors: oxygen, rest, bronchodilators and upright position Known history of: congestive heart failure Related Data Home Medications Medication Instructions Recorded Confirmed amitriptyline 50 mg tablet 100 mg PO DAILY 07/04/19 12/08/23 atorvastatin 40 mg tablet 40 mg PO HS 07/04/19 12/08/23 dabigatran etexilate 150 mg 150 mg PO BID 07/04/19 12/08/23 capsule (Pradaxa) furosemide 20 mg tablet 20 mg PO BID 07/04/19 12/08/23 gabapentin 300 mg capsule 300 mg PO TID 07/04/19 12/08/23 insulin aspart U-100 100 unit/mL 45 unit subcut TID 07/04/19 12/08/23 (3 mL) subcutaneous pen (Novolog FlexPen U-100 Insulin aspart) insulin detemir U-100 100 unit/mL 45 unit subcut HS 07/04/19 12/08/23 (3 mL) subcutaneous pen (Levemir FlexTouch U-100 Insulin) metformin 850 mg tablet 850 mg PO BID 07/04/19 12/08/23 metoprolol succinate 50 mg 100 mg PO DAILY 07/04/19 12/08/23 tablet,extended release 24 hr spironolactone 25 mg tablet 25 mg PO DAILY 07/04/19 12/08/23 tramadol 50 mg tablet 50 mg PO TID PRN Pain 07/04/19 12/08/23 furosemide 20 mg tablet 40 mg PO DAILY 04/20/21 12/08/23 Allergies Allergy/AdvReac Type Severity Reaction Status Date / Time doxycycline Allergy Unknown Verified 12/08/23 07:31 Review of Systems Review of Systems: All systems reviewed & are unremarkable except as noted in HPI and below [facility] Past Medical History Medical History Atrial fibrillation, chronic COPD (chronic obstructive pulmonary disease) Gastroenteritis Exam Const: Nutritional Appearance: obese Orientation/consciousness: patient oriented x3 Limitations: no limitations HENMT: Head: normal to inspection Neck: Neck: normal visual inspection, no lymphadenopathy and no meningeal signs Chest: Chest palpation & inspection: normal inspection of the chest Resp: Effort & Inspection: normal respiratory effort Auscultation: diminished lung sounds Cardio: Rate: regular rate Rhythm: regular rhythm Heart sounds: Murmur heart sound present GI: GI Palp: Yes Soft to palpation Auscultation: normal bowel sounds Urinary Catheter: Urinary Catheter: patent and draining Skin: General skin exam: normal color Neuro: General: patient oriented x3, moves all extremities, no meningeal signs and no focal motor deficits Extrem: General: edema Course Course Emergency Course: Patient with mildly elevated BNP of 391 and a troponin of 233, recently had a heart ablation for atrial fibrillation, spoke to Cardiology at [facility] which accepted patient for transfer. Patient did receive DuoNebs along with Solu-Medrol and magnesium and a dose of IV Lasix 40mg. After reassessment patient has some lung sounds have improved and the patient's disposition as were his breathing has improved as well. D-dimer was elevated at 0.52 and CTA was performed performed which shows no pulmonary embolism but consistent with pulmonary edema and cardiomegaly. Vital Signs
--- NOTE | 2023-12-14 12:21 | PC.NURSE ---
final blood culture results x2: no growth after 5 days
== END 2023-12-08 11:27 | disposition home or self-care (01) ==
PROVIDERS: Emergency Provider Emergency Medicine; PCP Family Medicine
DX: I11.0 Hypertensive heart disease with heart failure (principal); I50.9 Heart failure, unspecified; E11.9 Type 2 diabetes mellitus without complications; I48.91 Unspecified atrial fibrillation; I25.10 Atherosclerotic heart disease of native coronary artery without angina pectoris; E78.5 Hyperlipidemia, unspecified; J44.9 Chronic obstructive pulmonary disease, unspecified; Z79.4 Long term (current) use of insulin; Z79.899 Other long term (current) drug therapy; Z79.891 Long term (current) use of opiate analgesic; Z20.822 Contact with and (suspected) exposure to COVID-19
CPT/HCPCS: 36415; 36600; 71045; 71275; 80053; 81001; 82805; 83605; 83735; 83880; 84484; 85025; 85380; 85610; 85730; 87040; 87637; 93005; 94640; 96365; 96366; 96375; 99284; J1940; J2919; J3475; Q9967

== ENCOUNTER 2024-04-16 05:28 | Emergency (ER) | payer MEDICARE, SELFPAY ==
--- NOTE | ~2024-04-16 | XR_ITS ---
Left Knee Technique: AP, lateral, and oblique views were obtained. Clinical History: Pain Findings: No fracture or dislocation is seen. Left knee arthroplasty in place. Soft tissues are unrem arkable. No joint effusion is seen. Impression: No acute abnormality. Left knee arthroplasty. Reviewed, dictated and finalized at [facility]. ING LIAISON Impression: No acute abnormality. Left knee arthroplasty.
[2024-04-16 05:30] VITALS: BP 185/105; PULSE 82; RESP 20; TEMP 36.6; O2SAT 98
--- NOTE | 2024-04-16 05:34 | ED_ITS ---
HPI - Fall General Chief Complaint: Extremity Injury, Lower Stated Complaint: fall Time Seen by Provider: 04/16/24 05:34 Source: patient Mode of arrival: ambulatory Limitations: no limitations History of Present Illness HPI Narrative: patient got up to go to the bathroom lost his balance and landed on the left knee. History of left knee replacement years ago. Patient denies other injuries. Related Data Home Medications ?Medication ?Instructions ?Recorded ?Confirmed ?Last Taken ?Type amitriptyline 50 mg tablet 100 mg PO DAILY 07/04/19 12/08/23 Unknown History atorvastatin 40 mg tablet 40 mg PO HS 07/04/19 12/08/23 Unknown History dabigatran etexilate 150 mg 150 mg PO BID 07/04/19 12/08/23 Unknown History capsule (Pradaxa) furosemide 20 mg tablet 20 mg PO BID 07/04/19 12/08/23 Unknown History gabapentin 300 mg capsule 300 mg PO TID 07/04/19 12/08/23 Unknown History insulin aspart U-100 100 unit/mL 45 unit subcut TID 07/04/19 12/08/23 Unknown History (3 mL) subcutaneous pen (Novolog FlexPen U-100 Insulin aspart) insulin detemir U-100 100 unit/mL 45 unit subcut HS 07/04/19 12/08/23 Unknown History (3 mL) subcutaneous pen (Levemir FlexTouch U-100 Insulin) metformin 850 mg tablet 850 mg PO BID 07/04/19 12/08/23 Unknown History metoprolol succinate 50 mg 100 mg PO DAILY 07/04/19 12/08/23 Unknown History tablet,extended release 24 hr spironolactone 25 mg tablet 25 mg PO DAILY 07/04/19 12/08/23 Unknown History tramadol 50 mg tablet 50 mg PO TID PRN Pain 07/04/19 12/08/23 Unknown History furosemide 20 mg tablet 40 mg PO DAILY 04/20/21 12/08/23 Unknown History Allergies Allergy/AdvReac Type Severity Reaction Status Date / Time doxycycline Allergy Unknown Verified 12/08/23 07:31 Review of Systems Review of Systems: All systems reviewed & are unremarkable except as noted in HPI and below PMFSH Past Medical History Medical History COPD (chronic obstructive pulmonary disease) Atrial fibrillation, chronic Gastroenteritis Exam Narrative: General appearance: Well-developed, well-nourished Skin: Normal color Head: Normocephalic, nontraumatic Eyes: Clear conjunctiva Neck: Supple, nontender Chest and respiratory: Airway patent, no respiratory distress, no accessory muscle use Heart: Regular rate/rhythm Vascular: Normal peripheral pulses, normal capillary refill. Musculoskeletal: Left knee exam showed abrasion anteriorly, slight limited range of motion because of pain otherwise no swelling, no deformity Neurologic: Alert and oriented ?3, [employer] is normal as tested, no gross motor deficit MDM - Fall Imaging Data Radiologist's impression: x-ray left knee showed no acute osseous abnormality Critical Care Time Critical Care Time Critical Care Time: No Discharge Plan Discharge Clinical Impression: Contusion of knee, left Patient Disposition: Home, Self-Care Condition: Stable Instructions: Contusion in Adults (ED), Knee Pain (ED) Additional Instructions: Return if symptoms are worsening , call your family physician for appointment, take Tylenol , ibuprofenas as needed for aches and pain, continue home medications. Knee immobilizer Ice pack 20 minutes/hour for the next 24 hours Walker Patient Language: Tajik Prescriptions: No Action atorvastatin 40 mg tablet 40 mg PO HS metoprolol succinate 50 mg tablet extended release 24 hr 100 mg PO DAILY metformin 850 mg tablet 850 mg PO BID tramadol 50 mg tablet 50 mg PO TID PRN (Reason: Pain) amitriptyline 50 mg tablet 100 mg PO DAILY spironolactone 25 mg tablet 25 mg PO DAILY gabapentin 300 mg capsule 300 mg PO TID furosemide 20 mg tablet 20 mg PO BID insulin aspart U-100 [Novolog FlexPen U-100 Insulin] 100 unit/mL (3 mL) insulin pen 45 unit SUBCUT TID Levemir FlexTouch U100 Insulin 100 unit/mL (3 mL) insulin pen 45 unit SUBCUT HS dabigatran etexilate [Pradaxa] 150 mg capsule 150 mg PO BID furosemide 20 mg tablet 40 mg PO DAILY cephalexin [Keflex] 750 mg capsule 750 mg PO Q12H Qty: 20 0RF ondansetron HCl [Zofran] 4 mg tablet 4 mg PO Q8H Qty: 20 0RF methylprednisolone [Medrol (Bebeto)] 4 mg tablets,dose pack See Rx Instructions .ROUTE .COMPLEX Qty: 21 0RF Rx Instructions: orally per package directions albuterol sulfate 90 mcg/actuation HFA aerosol inhaler 2 puff inhalation QID Qty: 6.7 0RF Follow-up/Referrals: Chad,MD Ti [Primary Care Provider] -
[2024-04-16] MEDS: HYDROcodone/acetaminophen (*CRX) 5-325 MG TABLET 1 TAB PO (05:47)
[2024-04-16] MEDS: IBUPROFEN 600 MG TABLET PO (05:48)
[2024-04-16 06:20] VITALS: BP 160/75; PULSE 85; RESP 20; O2SAT 97
--- OUTSIDE RECORDS SUMMARY | 2024-04-23 04:20 | XMS_ITS | Encounter Summary ---
Author Organization [facility] Address [address] [place] [address]. [place], [place] [address] [place] [address] Care Team Providers Care Correctional Casework Specialist Name Role Phone Elza Allan MD Unavailable Unavailabl Raul Duran MD Unavailable Unavailabl Danny Lopes MD Unavailable [phone] Gayle Arce APRN, SCAFFOLDING HELPER-C Unavailable Ti Bonilla MD Primary Care Provider [phone] Mendel Shah DPM Unavailable [phone] Jyoti Escobar MD Unavailable [phone] Reason for Referral * Procedure (Routine) - New Request Specialty Diagnoses / Procedures Referred By Contac t Referred To Contact Diagnoses Exertional shortness of breath Procedures Complete PFT (pre/post [place], Lung Vol, Diff Capacity) (96090, 57227, 41308, 37125) Des Shukla MD [address] [place] [address] Phone: tel: fax: Referral ID Status Reason Start Date Expiration Date V isits Requested Visits Authorized [id number] New Request 03/22/2024 04/22/2025 1 1 INTENSIVE CARE UNIT Encounter Details Date Type Department Care Team (Late st Contact Info) Description 03/22/2024 Transcribe Orders [facility] Pre Access Team [address] [place] [address] Des Shukla MD [address] [place] [address] Social History Tobacco Use Types Packs/Day Years Used Date Smoking Tobacco: Never Smokeless Tobacco: Never Alcohol Use Standard Drinks/Week Comments Yes 0 (1 standard drink = 0.6 oz pur e alcohol) social [facility] Utilities Answer Date Recorded In the past 12 months has th e [employer], gas, oil, or water [employer] threatened to shut off services in your home? No 12/08/2023 Humiliation, Afraid, Rape, and Kick questionnair e Answer Date Recorded Within the last year, have y ou been afraid of your partner or ex-partner? No 12/08/2023 Within the last year, have y ou been humiliated or emotionally abused in other ways by your partner or ex-partner? No Within the last year, have y ou been kicked, hit, slapped, or otherwise physically hurt by your partner or ex-partner? No 12/08/2023 Within the last year, have y ou been raped or forced to have any kind of sexual activity by your partner or ex-partner? No 12/08/2023 Overall Financial Resource Strain (CARDIA) Answe r Date Recorded How hard is it for you to pa y for the very basics like food, housing, medical care, and heating? Not hard at all 12/08/2023 PHQ-2 Answer Date Recorded PHQ-2 Score - If the patient scores above 3, please move on to questions 3-9 0 12/03/2021 Hunger Vital Sign Answer Date Recorded Within the past 12 months, y ou worried that your food would run out before you got the money to buy more. Never true 12/08/19 24 Within the past 12 months, t he food you bought just didn't last and you didn't have money to get more. Never true 12/08/2023 PRAPARE - Transportation Answer Date Re corded In the past 12 months, has l ack of transportation kept you from medical appointments or from getting medications? No 11/17 In the past 12 months, has l ack of transportation kept you from meetings, work, or from getting things needed for daily living? No 12/08/2023 Housing Stability Vital Sign Answer Liam e Recorded In the last 12 months, was t here a time when you were not able to pay the mortgage or rent on time? No 12/08/2023 In the past 12 months, how m any times have you moved where you were living? 0 12/08/2023 At any time in the past 12 m [facility], were you homeless or living in a halfway (including now)? 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 Answer Date of Assessment Author Status No 12/08/2023 12:56 PM Charlotte Montgomery LPN Active * Do you have serious difficulty walking or climbing stairs? Answer Date of Assessment Author Status Yes 12/08/2023 12:56 PM Charlotte Montgomery LPN Active * Do you have difficulty dressing or bathing? Answer Date of Assessment Author Status No 12/08/2023 12:56 PM Charlotte Montgomery LPN Active * Because of a physical, mental, or emotional condition, do you have difficulty doing errands alone such as visiting a doctor's office or shopping? Answer Date of Assessment Author Status No 12/08/2023 12:56 PM Charlotte Montgomery LPN Active documented as of this encounter Mental Status * Because of a physical, mental, or emotional condition, do you have serious difficulty concentrating, remembering, or making decisions? Answer Entry Date Author Status No 12/08/2023 12:56 PM Charlotte Montgomery LPN Active documented in this encounter Plan of Treatment Upcoming Encounters Date Type Department Care Team (Late st Contact Info) Description 04/25/2024 11:00 AM RN INTENSIVE CARE UNIT Appointment [facility] [address] [place] [address] [place] [address] Ti Bonilla MD [address] [place] [phone] 05/23/2024 3:30 PM RN INTENSIVE CARE UNIT Office Visit [facility] [address] [facility] [place] [id number] Jyoti Escobar MD [address] [place] [address] [phone] documented as of this encounter Goals Goal Patient Goal Type Associated Problems Recent Progress Patient-Stated? Author Safety ? Patient/family will have appropriate support at home upon discharge Lifestyle No Alex Lozano, clinical trial manager - family caregiver with be involved in care transitions and discharge planning Lifestyle No Alex Lozano, RN Patient will return to prior living situation and remain independent in ADLs upon discharge from hospital Lifestyle No Alex Lozano RN documented as of this encounter Results * Complete PFT (pre/post Mode, Lung Vol, Diff Capacity) (87348, 82750, 48145, 53951) (04/05/2024 12:36 PM RN INTENSIVE CARE UNIT) 04/05/2024 12:3 6 PM RN INTENSIVE CARE UNIT Narrative ESCRIPTION - 04/06/2024 6:15 PM RN INTENSIVE CARE UNIT Patient Name: ELZA MCKEON Date of : 1960 Account: [id number] Facility: [facility] Location: [facility] Date of Service: 04/05/2024 Pulmonary Function Test ORDERED BY: ??Dr. Sallie Shukla. INDICATION: ??Shortness of breath. CHF, Hypoventilation with obesity STUDY PERFORMED: ??The patient had spirometry before and after bronchodilators, lung volumes, diffusion lung capacity. FINDINGS: ??Baseline spirometry shows severe restrictive disease. ??FEV1 is 1.30 liters or 38% and FVC of 1.60 liters or 37% with a normal ratio FEV1/FVC, small response to bronchodilators, FEV1 improved by 4%, lung volume shows TLC of 59%, consistent with a restrictive lung disease, moderate to severe, and reduced diffusion lung capacity down to 51%, became normal when adjusted to the alveolar volume. IMPRESSION: ??Moderate to severe restrictive lung disease with FVC of 37%, FEV1 of 38% and reduced total lung capacity of 59%. ??Diffusion lung capacity was reduced, but became normal when adjusted to the alveolar volume. ??Clinical correlation is required. Signature/Date: ? Sallie SHUKLA MD D: ??04/05/2024 09:52 PM ??#[id number] T: ??04/05/2024 10:00 PM ??/ABBI [facility] Wilner Shukla MD PFT ORDERABLES Final Result ESCRIPTION documented in this encounter Visit Diagnoses Diagnosis Exertional shortness of breath- Primary Shortness of breath Exertional shortness of breath Shortness of breath documented in this encounter Care Teams Correctional Casework Specialist Relationship Specialty Start Date End Date Ti Bonilla MD [address] [place] [phone] PCP - General FAMILY PRACTICE 12/03/21 Elza Allan MD [place] Security Officer CARDIOVASCULAR DISEASE 08/19/16 Raul Santana MD CLINICAL CARDIAC ELECTROPHYSIOLOGY 06/16/17 Danny Blackwell MD [address] [place] [id number] ORTHOPAEDIC SURGERY 05/01/19 Gayle Arce, [employer] EQUIPMENT OPERATOR, SCAFFOLDING HELPER-C [address] [place] [address] [place] [address] NURSE PRACTITIONER 03/03/20 Mendel Shah DPM [address] [facility] [place] [address] Consulting Physician PODIATRY/SURGERY 06/27/23 06/26/24 Jyoti Escobar MD [address] [place] [address] INTERVENTIONAL CARDIOLOGY 12/27/23 documented as of this encounter
--- OUTSIDE RECORDS SUMMARY | 2024-04-23 04:20 | XMS_ITS | Encounter Summary ---
Author Organization [facility] Address [address] [place] [address]. [place], [place] [address] [place] [address] Care Team Providers Care Stations Superintendent Name Role Phone Elza Allan MD Unavailable Unavailabl Raul Duran MD Unavailable Unavailabl e Danny Blackwell MD Unavailable [phone] Gayle Arce APRN, TRIM SETTER HELPER-C Unavailable [phone] Ti Bonilla MD Primary Care Provider [phone] Mendel Shah DPM Unavailable [phone] Jyoti Escobar MD Unavailable [phone] Reason for Referral * Procedure (Routine) - New Request Specialty Diagnoses / Procedures Referred By Charito ledbetter Referred To Contact Diagnoses Exertional shortness of breath Procedures Complete PFT (pre/post [place], Lung Vol, Diff Capacity) (41484, 81557, 94458, 92954) Des Siegel MD [address] [place] [address] Phone: tel: fax: Referral ID Status Reason Start Date Expiration Date V isits Requested Visits Authorized [id number] New Request 03/22/2024 04/22/2025 1 1 ILLE MACHINE OPERATOR Reason for Visit * Procedure (Routine) - New Request Specialty Diagnoses / Procedures Referred By Conttianna t Referred To Contact Diagnoses Exertional shortness of breath Procedures Complete PFT (pre/post [place], Lung Vol, Diff Capacity) (83970, 24721, 52017, 72805) Des Siegel MD [address] [place] [address] Phone: tel: fax: Referral ID Status Reason Start Date Expiration Date V isits Requested Visits Authorized [id number] New Request 03/22/2024 04/22/2025 1 1 Encounter Details Date Type Department Care Team (Latest Contact Info) Description 04/05/2024 12:36 PM CHENILLE MACHINE OPERATOR - 04/05/2024 11:59 PM CHENILLE MACHINE OPERATOR Hospital Encounter [facility] [address] [place] [address] [place] [address] Des Siegel MD [address] [place] [address] Discharge Disposition: Home or Self Care (Routine Discharge) Social History Tobacco Use Types Packs/Day Years Used Date Smoking Tobacco: Never Smokeless Tobacco: Never Alcohol Use Standard Drinks/Week Comments Yes 0 (1 standard drink = 0.6 oz pur e alcohol) social [facility] Utilities Answer Date Recorded In the past 12 months has e [employer], gas, oil, or water [employer] threatened to shut off services in your [...] any time in the past 12 m [facility], were you homeless or living in a detention (including now)? 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 Answer Date of Assessment Author Status Yes 12/08/2023 12:56 PM CDT Charlotte Mirza LPN Active * Do you have difficulty [...] Montgomery LPN Active documented in this encounter Medications at Time of Discharge amitriptyline 100 MG tablet Take 1 tablet (100 mg total) by mouth nightly at bedtime. 09/10/2020 aspirin 81 MG chewable tablet Chew 1 tablet (81 mg total) by mouth daily. 04/19/2023 atorvastatin (LIPITOR) 40 MG tablet Take 0.5 tablets (20 mg total) by mouth nightly at bedtime. 45 tablet 3 12/26/2023 Continuous Glucose Sales Forecast Analyst (FREESTYLE LI 3 READER) Device Inject 1 Device into the skin as needed (DM). 09/17/2023 Continuous Glucose Sensor (FREESTYLE LI 3 SENSOR) Misc Inject 1 Device into the skin as needed. 10/03/2023 Continuous Glucose Transmitter (DEXCOM G6 TRANSMITTER) Misc Inject 1 Device into the skin as needed (DM). 03/14/2023 ELIQUIS 5 MG tablet Take 1 tablet (5 mg total) by mouth 2 (two) times daily. 06/24/2023 empagliflozin (JARDIANCE) 10 MG tablet Take 1 tablet (10 mg total) by mouth daily. 90 tablet 3 12/26/2023 famotidine (PEPCID) 40 MG tablet Take 1 tablet (40 mg total) by mouth 2 (two) times daily. 180 tablet 3 12/26/2023 furosemide (LASIX) 40 MG tablet take one tablet by mouth twice a day 120 tablet 12/06/2023 gabapentin (NEURONTIN) 600 MG tablet 02/01/2024 HUMALOG KWIKPEN 100 UNIT/ML injection (PEN) 02/13/2024 insulin glargine (LANTUS) 100 UNIT/ML injection (PEN) Inject 50 Units into the skin nightly at bedtime. lisinopril (PRINIVIL) 10 MG tablet Take 1 tablet (10 mg total) by mouth daily. 06/23/2023 metFORMIN 850 MG tablet Take 1 tablet (850 mg total) by mouth 3 (three) times daily. 10/25/2018 metoprolol succinate ER (TOPROL-XL) 200 MG 24 hr tablet take one tablet by mouth twice a day 180 tablet 12/06/2023 nitroglycerin (NITROSTAT) 0.[address] 1 tablet (0.4 mg total) under the tongue every 5 (five) minutes as needed for Chest Pain. 25 tablet 12/26/2023 NOVOLOG FLEXPEN 100 UNIT/ML injection (PEN) Inject 50 Units as directed 3 (three) times daily before meals. 09/13/2019 OXYGEN CONCENTRATOR SUPPLY, DME,Indications:CH F exacerbation ([facility]) 1 Device by Nasal route continuous. Pt to use 2l o2 per nasal cannula. Pt may use a poc with 2l o2 per nasal cannula. 1 Device 12/11/2023 OZEMPIC, 0.25 OR 0.5 MG/DOSE, 2 MG/3ML injection (PEN) Inject 0.25 mg into the skin every 7 days. Every sat 09/19/2023 potassium chloride CR (KLOR-CON M) 20 MEQ tablet take one tablet by mouth daily 30 tablet 4 08/25/2023 traMADol 50 MG tablet Take 1 tablet (50 mg total) by mouth 3 (three) times a day. 11/19/2019 TRUEPLUS 5-BEVEL PEN NEEDLES 29G X 12.7MM [facility] 02/17/2024 TRUEPLUS PEN NEEDLES 31G X 8 MM [facility] 01/19/2021 documented as of this encounter Plan of Treatment Upcoming Encounters Date Type Department Care Team (Late st Contact Info) Description 04/25/2024 11:00 AM CHENILLE MACHINE OPERATOR Appointment [facility] [address] [place] [address] Ti Bonilla MD [address] [place] [phone] 05/23/2024 3:30 PM CHENILLE MACHINE OPERATOR Office Visit [facility] [place] [address] Jyoti Escobar MD [address] [place] [address] documented as of this encounter Goals Goal Patient Goal Type Associated Problems Recent Progress Patient-Stated? Author Safety ? Patient/family will have appropriate support at home upon discharge Lifestyle No Alex Lozano, spd manager - family caregiver with be involved in care transitions and discharge planning Lifestyle No Alex Lozano, RN Patient will return to prior living situation and remain independent in ADLs upon discharge from hospital Lifestyle No Alex Lozano, RN documented as of this encounter Procedures Procedure Name Priority Date/Time Associated Diagnosis Comments PULMONARY FUNCTION TEST Routine 04/05/2024 12:36 PM CHENILLE MACHINE OPERATOR Exertional shortness of breath documented in this encounter Results * Complete PFT (pre/post [place], Lung Vol, Diff Capacity) (75030, 43443, 20226, 72153) (04/05/2024 12:36 PM CHENILLE MACHINE OPERATOR) 04/05/2024 12:3 6 PM CHENILLE MACHINE OPERATOR Narrative ESCRIPTION - 04/06/2024 6:15 PM CHENILLE MACHINE OPERATOR Patient Name: ELZA MCKEON Date of : 1960 Account: [id number] Facility: [facility] Location: [facility] Date of Service: 04/05/2024 Pulmonary Function Test ORDERED BY: ??Dr. Sallie Siegel. INDICATION: ??Shortness of breath. CHF, Hypoventilation with [...] ??Clinical correlation is required. Signature/Date: ? Sallie SIEGEL MD D: ??04/05/2024 09:52 PM ??#[id number] T: ??04/05/2024 10:00 PM ??/[facility] Wilner Siegel MD PFT ORDERABLES Final Result ESCRIPTION documented in this encounter Visit Diagnoses Diagnosis Exertional shortness of breath Shortness of breath documented in this encounter Administered Medications Inactive Administered Medications - up to 3 most recent administrations Medication Order MAR Action Action Date Dose Rate Site albuterol sulfate HFA 108 (90 Base) MCG/ACT inhaler 4 puff 4 puff, Inhalation, Once, 1 dose, On Vika 04/05/24 at 1300 Given 04/05/2024 12:58 PM CHENILLE MACHINE OPERATOR 4 puffs documented in this encounter Care Teams Stations Superintendent Relationship Specialty Start Date End Date Ti Bonilla MD [address] [place] [phone] PCP - General FAMILY PRACTICE 12/03/21 Elza Allan MD [employer] Contract Representative CARDIOVASCULAR DISEASE 08/19/16 Raul Santana MD CLINICAL CARDIAC ELECTROPHYSIOLOGY 06/16/17 Danny Blackwell MD [address] [place] [address] ORTHOPAEDIC SURGERY 05/01/19 Gayle Arce APRN, TRIM SETTER HELPER-C [address] [facility] [address] [place] [address] NURSE PRACTITIONER 03/03/20 Mendel Shah DPM [address] [place] [address] Consulting Physician PODIATRY/SURGERY 06/27/23 06/26/24 Jyoti Escobar MD [address] [place] [address] INTERVENTIONAL CARDIOLOGY 12/27/23 documented as of this encounter
--- OUTSIDE RECORDS SUMMARY | 2024-04-23 04:20 | XMS_ITS | Encounter Summary ---
Author Organization [facility] Address [address] [place] [address]. [place] [id number] Care Team Providers Care Intensive Care Unit Registered Nurse Name Role Phone Evaristo Allan MD Unavailable Unavailabl Raul Duran MD Unavailable Unavailabl Danny Lopes MD Unavailable [phone] Gayle Arce APRN, METALIZING SUPERVISOR-C Unavailable [phone] Ti Bonilla MD Primary Care Provider Mendel Shah DPM Unavailable [phone] Jyoti Escobar MD Unavailable [phone] Encounter Details Date Type Department Care Team (Latest Contact Info) Description 04/05/2024 Travel Social History Tobacco Use Types Packs/Day Years Used Date Smoking Tobacco: Never Smokeless Tobacco: Never Alcohol Use Standard Drinks/Week Comments Yes 0 (1 standard drink = 0.6 oz pur e alcohol) social [facility] Utilities Answer Date Recorded In the past 12 months has e [employer], gas, oil, or water [employer] threatened to shut off services in your [...] any time in the past 12 m [facility], were you homeless or living in a halfway (including now)? 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 Answer Date of Assessment Author Status No 12/08/2023 12:56 PM CDCharlotte Zapata LPN Active * Do you have serious difficulty walking or climbing stairs? Answer Date of Assessment Author Status Yes 12/08/2023 12:56 PM CDCharlotte Zapata LPN Active * Do you have difficulty dressing or bathing? Answer Date of Assessment Author Status No 12/08/2023 12:56 PM CDCharlotte Zapata LPN Active * Because of a physical, [...] st Contact Info) Description 04/25/2024 11:00 AM OPTOMETRIST Appointment [facility] [address] [place] [address] Ti Bonilla MD [address] [place] [phone] 05/23/2024 3:30 PM OPTOMETRIST Office Visit [facility] [address] [place] [address] Jyoti Escobar MD [address] [place] [address] documented as of this encounter Goals Goal Patient Goal Type Associated Problems Recent Progress Patient-Stated? Author Safety ? Patient/family will have appropriate support at home upon discharge Lifestyle No Alex Lozano, accountant clerk - family caregiver with be involved in care transitions and discharge planning Lifestyle No Alex Lozano, RN Patient will return to prior living situation and remain independent in ADLs upon discharge from hospital Lifestyle No Alex Lozano, RN documented as of this encounter Visit Diagnoses Not on filedocumented in this encounter Care Teams Intensive Care Unit Registered Nurse Relationship Specialty Start Date End Date Ti Bonilla MD [address] [place] [address] PCP - General FAMILY PRACTICE 12/03/21 Evaristo Allan MD [employer] Handling Plant Operator CARDIOVASCULAR DISEASE 08/19/16 Raul Santana MD CLINICAL CARDIAC ELECTROPHYSIOLOGY 06/16/17 Danny Blackwell MD [address] [place] [address] ORTHOPAEDIC SURGERY 05/01/19 Gayle Arce APRN, METALIZING SUPERVISOR-C [address] [facility] [address] [address] NURSE PRACTITIONER 03/03/20 Mendel Shah DPM [address] [place] [address] Consulting Physician PODIATRY/SURGERY 06/27/23 06/26/24 Jyoti Escobar MD [address] [place], [place] [address] INTERVENTIONAL CARDIOLOGY 12/27/23 documented as of this encounter
--- OUTSIDE RECORDS SUMMARY | 2024-04-23 04:20 | XMS_ITS | Encounter Summary ---
Author Organization [facility] Address [address] [place] [address]. [place], [place] [address] [place] [address] Care Team Providers Care Passementerie Worker Name Role Phone Evaristo Allan MD Unavailable Unavailabl Raul Duran MD Unavailable Unavailabl Danny Lopes MD Unavailable [phone] Galye Arce APRN, NP-C Unavailable Ti Bonilla MD Primary Care Provider Mendel Shah DPM Unavailable [phone] Jyoti Escobar MD Unavailable [phone] Reason for Referral * Imaging (Routine) - Closed Specialty Diagnoses / Procedures Referred By Contac t Referred To Contact Cardiology Diagnoses Paroxysmal atrial fibrillation ([facility]) Procedures CLINIC - [address] [facility] - Today Nandini Salcido NP [address], [place] [place] [address] Phone: tel: fax: Referral ID Status Reason Start Date Expiration Date Visits Re quested Visits Authorized [id number] Closed 03/26/2024 03/26/2025 1 1 CONTENT COORDINATOR Reason for Visit * Reason Onset Date Comments Question 03/26/2024 Concerns 03/26/2024 Encounter Details Date Type Department Care Team ([facility] Contact Info) Description 03/26/2024 Telephone [facility] [address] [place] [phone] Joshua Yin MD [address] [place] [address] Question; Concerns Social History Tobacco Use Types Packs/Day Years Used Date Smoking Tobacco: Never Smokeless Tobacco: Never Alcohol Use Standard Drinks/Week Comments Yes 0 (1 standard drink = 0.6 oz pur e alcohol) social [facility] Utilities Answer Date Recorded In the past 12 months has e [employer], gas, oil, or water [employer] threatened to shut off services in your [...] any time in the past 12 m [facility], were you homeless or living in a intermediate (including now)? 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 Answer Date of Assessment Author Status No 12/08/2023 12:56 PM CDCharlotte Zapata LPN Active documented as of this encounter Mental Status * Because of a physical, mental, or emotional condition, do you have serious difficulty concentrating, remembering, or making decisions? Answer Entry Date Author Status No 12/08/2023 12:56 PM Charlotte Montgomery LPN Active documented in this encounter Progress Notes * Jennifer Ramirez, CIVIL ESTIMATOR - 03/30/2024 2:30 PM CST Rcv'd a Teams message from our [employer] team that his [facility] plans terms as of 04/17/24. I called Evaristo at [phone]. He states that he just completed his process for insurance for the next year and that he will have the same plan and the same I.D. #. [employer] team notified via Teams. CONTENT COORDINATOR * Nandini Salcido NP - 03/26/2024 3:29 PM CSTAddended by: NANDINI SALCIDO on: 03/26/2024 03:29 PM Modules accepted: Orders CONTENT COORDINATOR * Betty Schaeffer - 03/26/2024 3:21 PM CST Spoke with pt and he states he is having frequent palpitations. Spoke with DW and relayed message that DW will put in an order for a monitor so she can see what is going on. Pt v/u. CONTENT COORDINATOR documented in this encounter Plan of Treatment Upcoming Encounters Date Type Department Care Team (Late st Contact Info) Description 04/25/2024 11:00 AM WEB CONTENT COORDINATOR Appointment [facility] [address] [place] [address] Ti Bonilla MD [address] [place] [phone] 05/23/2024 3:30 PM WEB CONTENT COORDINATOR Office Visit [facility] [address] [place] [phone] Jyoti Escobar MD [address] [place] [address] Scheduled Orders Name Type Priority Associated Diagnoses Orde r Schedule CLINIC - [address] [facility] - Today EKG-NonRad Routine Paroxysmal atrial fibrillation ([facility]) Expected: 03/26/2024, Expires: 03/26/2025 documented as of this encounter Goals Goal Patient Goal Type Associated Problems Recent Progress Patient-Stated? Author Safety ? Patient/family will have appropriate support at home upon discharge Lifestyle No Alex Lozano church communications administrator - family caregiver with be involved in care transitions and discharge planning Lifestyle No Alex Lozano RN Patient will return to prior living situation and remain independent in ADLs upon discharge from hospital Lifestyle No Alex Lozano RN documented as of this encounter Visit Diagnoses Diagnosis Paroxysmal atrial fibrillation ([facility])- Primary Atrial fibrillation documented in this encounter Care Teams Passementerie Worker Relationship Specialty Start Date End Date Ti Bonilla MD [address] [place] [phone] PCP - General FAMILY PRACTICE 12/03/21 Evaristo Allan MD [employer] Process Extractor Operator CARDIOVASCULAR DISEASE 08/19/16 Raul Santana MD CLINICAL CARDIAC ELECTROPHYSIOLOGY 06/16/17 Danny Blackwell MD [address] [place] [address] ORTHOPAEDIC SURGERY 05/01/19 Gayle Arce APRN, RETAIL PARTS PRO-C [address] [place] [address] [address] [place] [phone] NURSE PRACTITIONER 03/03/20 Mendel Shah DPM [address] [place] [address] [place] [address] Consulting Physician PODIATRY/SURGERY 06/27/23 06/26/24 Jyoti Escobar MD [address] [place] [address] INTERVENTIONAL CARDIOLOGY 12/27/23 documented as of this encounter
--- OUTSIDE RECORDS SUMMARY | 2024-04-23 04:20 | XMS_ITS | Clinical Summary ---
Author Organization [facility] Address [address] [place] [address]. [place], [place] [address] [place] [address] Care Team Providers Care Regulatory Affairs Associate Name Role Phone Elza Allan MD Unavailable Unavailabl Raul Durna MD Unavailable Unavailabl e Danny Blackwell MD Unavailable [phone] Gayle Arce APRN, LOAN BROKER-C Unavailable Ti Zamora MD Primary Care Provider Mendel Shah DPM Unavailable [phone] Jyoti Escobar MD Unavailable [phone] Allergies Active Allergy Reactions Criticality Noted Date Comments Doxycycline Other (see comment),Rash Low 07/11/2019 Blisters in the mouth Tetracyclines & Related Other (see comment) Blisters in the mouth Medications metFORMIN 850 MG tablet Take 1 tablet (850 mg total) by mouth 3 (three) times daily. 9 Active NOVOLOG FLEXPEN 100 UNIT/ML injection (PEN) Inject 50 Units as directed 3 (three) times daily before meals. 0 Active traMADol 50 MG tablet Take 1 tablet (50 mg total) by mouth 3 (three) times a day. 0 Active amitriptyline 100 MG tablet Take 1 tablet (100 mg total) by mouth nightly at bedtime. 1 Active TRUEPLUS PEN NEEDLES 31G X 8 MM Misc 1 Active ELIQUIS 5 MG tablet Take 1 tablet (5 mg total) by mouth 2 (two) times daily. 4 Active lisinopril (PRINIVIL) 10 MG tablet Take 1 tablet (10 mg total) by mouth daily. 4 Active aspirin 81 MG chewable tablet Chew 1 tablet (81 mg total) by mouth daily. 4 Active potassium chloride CR (KLOR-CON M) 20 MEQ tablet take one tablet by mouth daily 30 tablet 4 4 Active Continuous Glucose Test Engineering Intern (FREESTYLE LI 3 READER) Device Inject 1 Device into the skin as needed (DM). 4 Active Continuous Glucose Sensor (FREESTYLE LI 3 SENSOR) Misc Inject 1 Device into the skin as needed. 4 Active Continuous Glucose Transmitter (DEXCOM G6 TRANSMITTER) Misc Inject 1 Device into the skin as needed (DM). 3 Active OZEMPIC, 0.25 OR 0.5 MG/DOSE, 2 MG/3ML injection (PEN) Inject 0.25 mg into the skin every 7 days. Every sat 4 Active metoprolol succinate ER (TOPROL-XL) 200 MG 24 hr tablet take one tablet by mouth twice a day 180 tablet 4 Active furosemide (LASIX) 40 MG tablet take one tablet by mouth twice a day 120 tablet 4 Active OXYGEN CONCENTRATOR SUPPLY, [facility],Indications:C HF exacerbation ([facility]) 1 Device by Nasal route continuous. Pt to use 2l o2 per nasal cannula. Pt may use a poc with 2l o2 per nasal cannula. 1 Device 4 Active insulin glargine (LANTUS) 100 UNIT/ML injection (PEN) Inject 50 Units into the skin nightly at bedtime. Active nitroglycerin (NITROSTAT) 0.[address] 1 tablet (0.4 mg total) under the tongue every 5 (five) minutes as needed for Chest Pain. 25 tablet 4 Active empagliflozin (JARDIANCE) 10 MG tablet Take 1 tablet (10 mg total) by mouth daily. 90 tablet 3 4 Active famotidine (PEPCID) 40 MG tablet Take 1 tablet (40 mg total) by mouth 2 (two) times daily. 180 tablet 3 4 Active atorvastatin (LIPITOR) 40 MG tablet Take 0.5 tablets (20 mg total) by mouth nightly at bedtime. 45 tablet 3 4 Active HUMALOG KWIKPEN 100 UNIT/ML injection (PEN) 4 Active gabapentin (NEURONTIN) 600 MG tablet 4 Active TRUEPLUS 5-BEVEL PEN NEEDLES 29G X 12.7MM Misc 4 Active Active Problems Problem Noted Date Diagnosed Date CHF exacerbation ([facility]) 12/08/2023 Assessment & Plan (12/09/2023 1:52 PM CDT): Acute exacerbation of chronic diastolic congestive heart failure. Continue to optimize afterload reducing agents. Continue he has been on high-dose beta- francesca tolerating. Continue diuretic. Added SGLT2 inhibitor. Add MRA agent. Follow laboratory data. Gave additional instructions on 2 g sodium diet. 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 type 2 diabetes mellitus, limited to breakdown of skin ([facility]) 07/04/2023 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 type 2 diabetes mellitus, limited to breakdown of skin ([facility]) 11/24/2022 S/P ablation of atrial fibrillation 11/17/2021 Atrial flutter ([facility]) 11/17/2021 Microhematuria 05/19/2021 Overview (05/19/2021): Added automatically from request for surgery [id number] Neck pain 04/07/2021 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 LV systolic function is preserved. Continue aspirin statin and beta- francesca therapy. Diabetes ([facility]) 02/10/2018 Mechanical complication of i nternal orthopedic device, implant or graft, initial encounter 11/01/2016 Hyperlipidemia 08/14/2016 Assessment & Plan (12/09/2023 1:54 PM CDT): Continue statin therapy. Pes anserine bursitis 03/09/2016 technician terminal and repeater current use of anticoagulant therapy 0 10/29/2015 Obstructive sleep apnea 10/29/2015 Essential hypertension 10/24/2015 Overview (10/24/2015): has had elevated B/P readings Assessment & Plan (12/09/2023 1:54 PM CDT): Blood pressure is controlled. He has been on high-dose beta-francesca. Continue. If additional antihypertensives are needed, add DELICIA inhibitor. Paroxysmal atrial fibrillation ([facility]) 10/24/2015 Arthritis of knee 11/25/2014 Patella-femoral syndrome 09/23/2014 Derangement of medial meniscus, left 07/31/2014 Knee pain 07/15/2014 Heartburn 03/26/2014 Recurrent ventral incisional hernia 03/26/2014 Abdominal pain 03/26/2014 Resolved Problems Problem Noted Date Diagnosed Date Resolved Date Chest pain 02/10/2018 05/05/2018 Cardiac dysrhythmia 10/24/2015 03/06/20 18 Overview (10/24/2015): AF Encounter for follow-up exam ination after completed treatment for conditions other than malignant neoplasm 04/30/2014 12/28/2019 Encounters Date Type Department Care Team Description 04/05/2024 12:36 PM WIRE STOCKKEEPER - 04/05/2024 11:59 PM WIRE STOCKKEEPER Hospital Encounter [facility] [address] [place] [address] Des Siegel MD Discharge Disposition: Home or Self Care (Routine Discharge) 04/05/2024 Travel 04/04/2024 10:30 AM WIRE STOCKKEEPER [facility]phone [facility] [address] [place] [address] Shannan Lay, ALEXANDRE Holter Monitor 03/26/2024 Telephone [facility] [address] [place] [phone] Joshua Yin MD Question; Concerns 03/22/2024 Transcribe Orders [facility] Pre Access Team [address] [place] [address] Des Siegel MD 03/22/2024 Telephone [facility] [address] [place] [phone] Joshua Yin MD Record Request 03/21/2024 Scan [facility] [address] [place] [phone] Scanned, Doc Pccl 03/20/2024 7:43 AM WIRE STOCKKEEPER - 03/20/2024 11:59 PM WIRE STOCKKEEPER Hospital Encounter [facility] [address] [place] [address] Ti Zamora MD Discharge Disposition: Home or Self Care (Routine Discharge) 03/20/2024 Travel 02/29/2024 2:00 PM WIRE STOCKKEEPER Office Visit [facility] [address] [place] [phone] Shannan Lay, ALEXANDRE Follow Up; Atrial Flutter; Atrial Fibrillation 02/29/2024 Telephone [facility] [address] [place] [phone] Gayle Arce APRN, ALEXANDRE-C Advice 02/29/2024 Travel 02/23/2024 Orders Only [facility] [address] [place] [phone] Joshua Yin MD from Last 3 Months Immunizations Name Administration Dates Next Due Influenza Adult (Generic) 01/28/2017 Family History Medical History Relation Comments Cancer Brother 1 Diabetes Brother 2 PVD Brother 2 No Known Problems Father No Known Problems Maternal Grandfather No Known Problems Maternal Grandmother Hypertension Mother No Known Problems Paternal Grandfather No Known Problems Paternal Grandmother Hypertension Sister 1 Hypertension Sister 2 Relation Status Comments Brother 1 Alive Brother 2 Father cancer Maternal Grandfather Maternal Grandmother Mother Alive Paternal Grandfather Paternal Grandmother Sister 1 Alive Sister 2 Alive Social History Tobacco Use Types Packs/Day Years Used Date Smoking Tobacco: Never Smokeless Tobacco: Never Tobacco Cessation:Counseling Given: Not Answered Alcohol Use Standard Drinks/Week Comments Yes 0 (1 standard drink = 0.6 oz pur e alcohol) social [facility] Utilities Answer Date Recorded In the past 12 months has th e [employer], gas, oil, or water [employer] threatened to shut off services in your [...] any time in the past 12 m [facility], were you homeless or living in a skilled nursing (including now)? 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 Not on file Not on file Not on file Last Filed Vital Signs Vital Sign Reading Time Taken Comments Blood Pressure 110/66 02/29/2024 1:50 PM WIRE STOCKKEEPER Pulse 89 02/29/2024 1:50 PM WIRE STOCKKEEPER ekg Temperature 35.1 ??C (95.2 ??F) 12/11/2023 8:38 AM CD T Respiratory Rate 18 02/29/2024 1:50 PM WIRE STOCKKEEPER Oxygen Saturation 96% 02/29/2024 1:50 PM WIRE STOCKKEEPER Inhaled Oxygen Concentration - - Weight 133.9 kg (295 lb 3.2 oz) 02/29/2024 1:50 PM WIRE STOCKKEEPER Height 177.8 cm (5' 10 ) 02/29/2024 1:50 PM WIRE STOCKKEEPER Body Mass Index 42.36 02/29/2024 1:50 PM WIRE STOCKKEEPER Plan of Treatment Upcoming Encounters Date Type Department Care Team (Late st Contact Info) Description 04/25/2024 11:00 AM WIRE STOCKKEEPER Appointment [facility] [address] [place] [address] Ti Zamora MD [address] [place] [phone] 05/23/2024 3:30 PM WIRE STOCKKEEPER Office Visit [facility] [address] [place] [phone] Jyoti Escobar MD [address] [place] [address] Health Maintenance Due Date Last Done Comments Colorectal Cancer Screening Colonoscopy (10 Years) 1960 Kidney Health Evaluation 1960 Pneumococcal Vaccine: 65+ Years (1 of 2 - PCV) 1965 Pneumococcal Vaccine: Pediatrics (0 to 5 Years) and At-Risk Patients (6 to 64 Years) (1 of 2 - PCV) 1965 Diabetes: Retinopathy Eye Exam 1977 Hepatitis C 1977 DTaP, Tdap and Td Vaccines (1 - Tdap) 1978 Zoster Vaccines (1 of 2) 2009 ASCVD LDL 03/05/2018 03/05/2017 RSV Immunization or 60+ Years (1 - Risk 60-74 years 1-dose series) 2019 COVID-19 Vaccine ( season) 2023 Influenza Adult (#1) 2024 03/03/2020, 03/08/2019, 02/06/2018, Additional history exists Lipid Panel 02/24/2024 02/23/2023, 03/05/2017 Hemoglobin A1C 06/09/2024 12/08/2023, 12/2022, 10/15/2022, Additional history exists Meningococcal Vaccine Aged Out No ayala tri eligible based on patient's age to complete this topic RSV Immunizations Under 20 Months Aged Out No longer eligible based on patient's age to complete this topic Goals Goal Patient Goal Type Associated Problems Recent Progress Patient-Stated? Author Safety ? Patient/family will have appropriate support at home upon discharge Lifestyle No Alex Lozano, sales manager [place] - family caregiver with be involved in care transitions and discharge planning Lifestyle No Alex Lozano, RN Patient will return to prior living situation and remain independent in ADLs upon discharge from hospital Lifestyle No Alex Lozano, RN Medical Devices Implanted Type Area Health Data Administrator Device Identifier Shelf Expiration Date Model / Serial / Lot Stent Coronary 38mm 3.5mm Sy - [id number] Implanted:Qty: 1 on 03/24/2018 by Deven Cleary MD at [facility] Stent Coronary [employer] 06/27/2018 [id number] / / [id number] Description:Synergy MARLIN to khloe he RCA Atune Pressfit Str Stem [id number] Implanted:Qty: 1 on 10/15/2019 by Danny Blackwell MD at [facility] Right: Knee 11/16/2027 [id number] / / [id number] Atun Tibial Slv M/L 29mm Full Por Implanted:Qty: 1 on 10/15/2019 by Danny Blackwell MD at [facility] Right: Knee 08/15/2029 [id number] / / [id number] Attune Rev Rp Tib Base Sz 5 Fidencio Implanted:Qty: 1 on 10/15/2019 by Danny Blackwell MD at [facility] Right: Knee 02/14/2029 [id number] / / [id number] Attune Crs Rp Insrt Sz 5 6mm Implanted:Qty: 1 on 10/15/2019 by Danny Blackwell MD at [facility] Right: Knee 05/18/2023 [id number] / / [id number] Graft Bone Cancellous 15ml 1-10mm Freeze Dried Chips - [id number] Implanted:Qty: 1 on 10/15/2019 by Danny Blackwell MD at [facility] Right: Knee [employer] 08/13/2023 [id number] / / [id number] Cement Simplex Hv W/Gentamicin - [id number] Implanted:Qty: 1 on 10/15/2019 by Danny Blackwell MD at [facility] Right: Knee [employer] 11/15/2020 6195-1-010 / / [id number] Cement Simplex Hv W/Gentamicin - [id number] Implanted:Qty: 1 on 10/15/2019 by Danny Blackwell MD at [facility] Right: Knee [employer] 11/15/2020 6195-1-010 / / [id number] Graft Bone Cancellous 15ml 1-10mm Freeze Dried Chips - [id number] Implanted:Qty: 1 on 10/15/2019 by Danny Blackwell MD at [facility] Right: Knee [employer] 07/24/2020 [id number] / / [id number] Atune Pressfit Str Stem Implanted:Qty: 1 on 10/15/2019 by Danny Blackwell MD at [facility] Right: Knee 05/18/2029 [id number] / / [id number] Attune Dist Fem Aug Sz 5 4 Mm Implanted:Qty: 1 on 10/15/2019 by Danny Blackwell MD at [facility] Right: Knee 09/15/2028 [id number] / / [id number] Attune Dist Fem Aug Sz 5 4 Mm Implanted:Qty: 1 on 10/15/2019 by Danny Blackwell MD at [facility] Right: Knee 09/15/2028 [id number] / / [id number] Atun Fem Slv M/L 30mm Full Por Implanted:Qty: 1 on 10/15/2019 by Danny Blackwell MD at [facility] Right: Knee 05/18/2029 [id number] / / [id number] Attune Crs Femoral Rt Sz 5 Fidencio Implanted:Qty: 1 on 10/15/2019 by Danny Blackwell MD at [facility] Right: Knee 12/16/2028 [id number] / / [id number] Explanted Type Area Health Data Administrator Device Identifier Shelf Expiration Date Model / Serial / Lot Drill Bit Synthes 2.5 Qc 110mm Gold - [id number] Explanted:Qty: 1 on 10/15/2019 at [facility] Right: Knee SYNTHES 310.25 / / Procedures Procedure Name Priority Date/Time Associated Diagnosis Comments PULMONARY FUNCTION TEST Routine 04/05/20 12:36 PM WIRE STOCKKEEPER Exertional shortness of breath US BLADDER Routine 03/20/2024 9:01 AM WIRE STOCKKEEPER Voiding dysfunction ELECTROCARDIOGRAM (NON MIDMARK ACQUIRED) Routine 02/29/2024 1:57 PM WIRE STOCKKEEPER Paroxysmal atrial fibrillation (CMS/HCC HHS/HCC) Atypical atrial flutter (CMS/HCC HHS/HCC) HEMOGLOBIN, GLYCOSYLATED STAT 024 2:22 PM CDT LIPID PANEL Routine 03/05/2017 9:20 AM WIRE STOCKKEEPER from Last 3 Months or Most Recently Relevant to Health Maintenance Results * Complete PFT (pre/post Mode, Lung Vol, Diff Capacity) (94427, 36080, 46387, 61801) (04/05/2024 12:36 PM WIRE STOCKKEEPER) 04/05/2024 12:3 6 PM WIRE STOCKKEEPER Narrative ESCRIPTION - 04/06/2024 6:15 PM WIRE STOCKKEEPER Patient Name: ELZA MCKEON Date of : 1960 Account: [id number] Facility: [facility] Location: [facility] Date of Service: 04/05/2024 Pulmonary [...] Sallie SIEGEL MD D: ??04/05/2024 09:52 PM ??#[id number] T: ??04/05/2024 10:00 PM ??/ABBI us Des Siegel MD PFT ORDERABLES Final Result ESCRIPTION * US BLADDER (03/20/2024 9:01 AM WIRE STOCKKEEPER) Anatomical Region Laterality Modality Renal Ultrasound 03/20/2024 9:00 AM WIRE STOCKKEEPER Impressions 03/20/2024 9:02 AM WIRE STOCKKEEPER IMPRESSION: 1. No urinary bladder mass or calculus demonstrated. 2. Bladder volumes as described. Ordered By: TI ZAMORA Interpreted By: Matteo Buenrostro MD, 03/20/2024 9:00 AM Narrative 03/20/2024 9:02 AM WIRE STOCKKEEPER [address] [place] [address] Examination: Ultrasound of the urinary bladder. Exam time: 0830 hours. Clinical history: Voiding dysfunction. Comparison: None. Technique: Grayscale and color Doppler images. Findings: Bilateral ureteral jets are demonstrated. No urinary bladder mass or calculus is demonstrated. The calculated prevoid bladder volume is approximately 116 mL. The calculated post void bladder volume is approximately 48 mL. Procedure Note Matteo Buenrostro MD - 03/20/[address] [place] [address] Examination: Ultrasound of the urinary bladder. Exam time: 0830 hours. Clinical history: Voiding dysfunction. Comparison: None. Technique: Grayscale and color Doppler images. Findings: Bilateral ureteral jets are demonstrated. No urinary bladdermass or calculus is demonstrated. The calculated prevoid bladder volume isapproximately 116 mL. The calculated post void bladder volume isapproximately 48 mL. IMPRESSION: 1. No urinary bladder mass or calculus demonstrated. 2. Bladder volumes as described. Ordered By: TI ZAMORA Interpreted By: Matteo Buenrostro MD, 03/20/2024 9:00 AM us Ti Zamora MD ULTRASOUND Final Resul t * ELECTROCARDIOGRAM (02/29/2024 1:57 PM WIRE STOCKKEEPER) 02/29/2024 1:57 PM WIRE STOCKKEEPER Narrative [facility] - 03/08/2024 4:06 PM WIRE STOCKKEEPER ? [facility] ?[address] [place], [place] ??[address] ? Test Date: ?2024-02-29 Pat Name: ? ELZA MCKEON ? Department: ?? 105 ? Room: ? Gender: ? Male ? Cartoonist Special Effects: ?? dp : ?1960 ? Requested By: JOSHUA YIN Order Number: [id number] ?Reading MD: ?? Carlos Sheth ? Measurements Intervals ?[place] ? Rate: ? 89 ? P: ?34 [place]: ? 143 ?QRS: ?78 QRSD: ? 102 ?T: ?49 QT: ? 360 ? QTc: ?440 ? Interpretive Statements SINUS RHYTHM LOW QRS VOLTAGE IN PRECORDIAL LEADS INCOMPLETE RIGHT BUNDLE [place] BLOCK STOCKKEEPER Procedure Note Carlos Sheth MD - 03/08/2024 [facility], [place] [address] [place] [address] Test Date: 2024-02-29 Pat Name: [facility] Department: 105 Room: Gender: Male Cartoonist Special Effects: daniel : 1960 Requested By: JOSHUA YIN Order Number: [id number] Reading MD: Reyna Measurements Intervals [place] Rate: 89 P: 34 [place]: 143 QRS: 78 QRSD: 102 T: 49 QT: 360 QTc: 440 Interpretive Statements SINUS RHYTHM LOW QRS VOLTAGE IN PRECORDIAL LEADS INCOMPLETE RIGHT BUNDLE [place]AN[place] BLOCK STOCKKEEPER us Joshua Yin MD PROCEDURES-ORDERABLE NO CHARGE F inal Result [facility] * (ABNORMAL) HEMOGLOBIN, GLYCATED (12/08/2023 2:22 PM CDT) HGB A1C 7.0(H) <5.7 % 12/08/2023 3:23 PM CDT [facility] ESTIMATED AVG GLUCOSE 154(H) 74 - 114 MG/DL 12/08/2023 3:23 PM CDT [facility] 12/08/2023 2:22 PM CDT Leonela Fulton [facility] Final R esult [facility] [address] [place] [address], [place] [phone] [phone] * (ABNORMAL) LIPID PANEL (03/05/2017 9:20 AM WIRE STOCKKEEPER) CHOLESTEROL 122 <200 MG/DL 03/05/2017 10:32 AM WIRE STOCKKEEPER [facility] TRIGLYCERIDES 79 <150 MG/DL 03/05/2017 10:32 AM WIRE STOCKKEEPER [facility] HDL 32(L) >40 MG/DL 03/05/2017 10:32 AM [facility] LDL (CALCULATED) 74.2 <130 MG/DL 03/05/20 17 10:32 AM [facility] Comment: AN LDL OF <100 IS OPTIMAL; HOWEVER, ELEVATED IS DEFINED >130.BY ATP III GUIDELINES, LDL GOALS ARE DEPENDENT UPON THE PATIENT'S OTHER RISK FACTORS. CHOL/HDL RATIO 3.8 0.0 - 5.0 03/05/2017 10:32 AM WIRE STOCKKEEPER [facility] 03/05/2017 9:20 AM WIRE STOCKKEEPER 03/05/2017 9:29 AM WIRE STOCKKEEPER us Generic Conversion Md [facility] Final R esult [facility] [address] [place] [address], [place] [phone] from Last 3 Months or Most Recently Relevant to Health Maintenance Insurance [facility] Advance Directives * Full Code (Latest Code Status on File) Date Activated Date Inactivated Comments 12/08/2023 1:56 PM 12/11/2023 5:55 PM * Full Code Date Activated Date Inactivated Comments 11/17/2021 11:23 AM 11/18/2021 3:42 PM * Full Code Date Activated Date Inactivated Comments 10/15/2019 7:11 PM 10/18/2019 2:27 PM * Full Code Date Activated Date Inactivated Comments 03/24/2018 10:25 AM 03/24/2018 4:46 PM Care Teams Regulatory Affairs Associate Relationship Specialty Start Date End Date Ti Zamora MD [address] [place] [phone] PCP - General FAMILY PRACTICE 12/03/21 Elza Allan MD Valentine Accounts Receivable Bookkeeper CARDIOVASCULAR DISEASE 08/19/16 Raul Santana MD CLINICAL CARDIAC ELECTROPHYSIOLOGY 06/16/17 Danny Blackwell MD [address] [place] [address] ORTHOPAEDIC SURGERY 05/01/19 Gayle Arce, BUCK PRESSER, LOAN BROKER-C [address] [facility] [address] [place] [address] NURSE PRACTITIONER 03/03/20 Mendel Shah DPM [address] [place] [address] Consulting Physician PODIATRY/SURGERY 06/27/23 06/26/24 Jyoti Escobar MD [address] [place] [address] INTERVENTIONAL CARDIOLOGY 12/27/23
--- OUTSIDE RECORDS SUMMARY | 2024-04-23 04:20 | XMS_ITS | Encounter Summary ---
Author Organization [facility] Address [address] [place] [address]. [place], [place] [address] [place] [address] Care Team Providers Care Disbursing Officer Name Role Phone Evaristo Allan MD Unavailable Unavailabl Raul Duran MD Unavailable Unavailabl Danny Lopes MD Unavailable [phone] Gayle Arce APRN, NP-C Unavailable Ti Bonilla MD Primary Care Provider Mendel Shah DPM Unavailable [phone] Jyoti Escobar MD Unavailable [phone] Reason for Visit * Reason Onset Date Comments Holter Monitor 04/04/2024 * Imaging (Routine) - Closed Specialty Diagnoses / Procedures Referred By Conttianna t Referred To Contact Cardiology Diagnoses Paroxysmal atrial fibrillation ([facility]) Procedures CLINIC - [address] [facility] - Today Shannan Lay, EHR TRAINER [address], [address] [place] [address] Phone: tel: fax: Referral ID Status Reason Start Date Expiration Date Visits Re quested Visits Authorized [id number] Closed 03/26/2024 03/26/2025 1 1 Encounter Details Date Type Department Care Team (Shelbi st Contact Info) Description 04/04/2024 10:30 AM CHILD CARE CENTER ASSISTANT DIRECTOR Telephone [facility] eld [address] [place] [phone] Shannan Lay, EHR TRAINER [address] [place] [address] Holter Monitor Social History Tobacco Use Types Packs/Day Years Used Date Smoking Tobacco: Never Smokeless Tobacco: Never Alcohol Use Standard Drinks/Week Comments Yes 0 (1 standard drink = 0.6 oz pur e alcohol) social [facility] Utilities Answer Date Recorded In the past 12 months has e [email or web address], gas, oil, or water [employer] threatened to shut off services in your [...] time in the past 12 m [facility], were you homeless or living in a chcf (including now)? 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 Answer Entry Date Author Status No 12/08/2023 12:56 PM CDT Charlotte Mirza LPN Active documented in this encounter Progress Notes * Parrish Jefferson, Instrument Mechanic - 04/04/2024 9:43 AM CST BG Shipped FedEx out: [id number] FedEx in: [id number] D CARE CENTER ASSISTANT DIRECTOR documented in this encounter Plan of Treatment Upcoming Encounters Date Type Department Care Team (Late st Contact Info) Description 04/25/2024 11:00 AM CHILD CARE CENTER ASSISTANT DIRECTOR Appointment [facility] [address] [place] [address] [place] [address] Ti Bonilla MD [address] [place] [phone] 05/23/2024 3:30 PM CHILD CARE CENTER ASSISTANT DIRECTOR Office Visit [facility] [address] [place] [address] [place] [phone] Jyoti Escobar MD [address] [place] [place] [address] documented as of this encounter Goals Goal Patient Goal Type Associated Problems Recent Progress Patient-Stated? Author Safety ? Patient/family will have appropriate support at home upon discharge Lifestyle No Alex Lozano RN Family - family caregiver with be involved in care transitions and discharge planning Lifestyle No Alex Lozano, [place] Patient will return to prior living situation and remain independent in ADLs upon discharge from hospital Lifestyle No Alex Lozano RN documented as of this encounter Visit Diagnoses Diagnosis Paroxysmal atrial fibrillation (CMS/HCC HHS/HCC) Atrial fibrillation documented in this encounter Care Teams Disbursing Officer Relationship Specialty Start Date End Date Ti Bonilla MD [address] [place] [phone] PCP - General FAMILY PRACTICE 12/03/21 Evaristo Allan MD [place] Supervisor Finishing Department CARDIOVASCULAR DISEASE 08/19/16 Raul Santana MD CLINICAL CARDIAC ELECTROPHYSIOLOGY 06/16/17 Danny Blackwell MD [address] [place] [address] ORTHOPAEDIC SURGERY 05/01/19 Gayle Arce APRN, EHR TRAINER-C [address] [place] [address] [phone] NURSE PRACTITIONER 03/03/20 Mendel Shah DPM [address] [place] [address] [place] [address] Consulting Physician PODIATRY/SURGERY 06/27/23 06/26/24 Jyoti Escobar MD [address] [place] [address] INTERVENTIONAL CARDIOLOGY 12/27/23 documented as of this encounter
--- OUTSIDE RECORDS SUMMARY | 2024-04-23 04:21 | XMS_ITS | Encounter Summary ---
Author Organization [facility] Address [address] [place] [address]. [place] [address] [place] [address] Care Team Providers Care Planer Off Bearer Name Role Phone Elza Allan MD Unavailable Unavailabl Raul Duran MD Unavailable Unavailabl Danny Lopes MD Unavailable [phone] Gayle Arce APRN, GOVERNMENT CONTRACTS MANAGER-C Unavailable Ti Bonilla MD Primary Care Provider Mendel Shah DPM Unavailable [phone] Jyoti Escobar MD Unavailable [phone] Encounter Details Date Type Department Care Team (Late st Contact Info) Description 12/26/2023 Orders Only [facility] [address] [place] [address] Abdulkadir Downing MD [address] [facility] [address] [place] [address] Social History Tobacco Use Types Packs/Day Years Used Date Smoking Tobacco: Never Smokeless Tobacco: Never Alcohol Use Standard Drinks/Week Comments Yes 0 (1 standard drink = 0.6 oz pur e alcohol) social [facility] Utilities Answer Date Recorded In the past 12 months has e electric, gas, oil, or water company threatened to shut off services in your [...] in the past 12 m [facility], were you homeless or living in a fci (including now)? 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 Not on file Not on file documented as of this encounter Functional Status * Are you deaf or do you have serious difficulty hearing Answer Date of Assessment Author Status No 12/08/2023 12:56 PM Charlotte Montgomery LPN Active * Are you blind or [...] st Contact Info) Description 04/25/2024 11:00 AM BRICKLAYER SUPERVISOR Appointment [facility] [address] [place] [address] Ti Bonilla MD [address] [place] [phone] 05/23/2024 3:30 PM BRICKLAYER SUPERVISOR Office Visit [facility] [address] [place] [address] Jyoti Escobar MD [address] [place] [address] documented as of this encounter Goals Goal Patient Goal Type Associated Problems Recent Progress Patient-Stated? Author Safety ? Patient/family will have appropriate support at home upon discharge Lifestyle No Alex Lozano visual education director - family caregiver with be involved in care transitions and discharge planning Lifestyle No Alex Lozano RN Patient will return to prior living situation and remain independent in ADLs upon discharge from hospital Lifestyle No Alex Lozano RN documented as of this encounter Results * ELECTROCARDIOGRAM (12/26/2023 9:32 AM CDT) 12/26/2023 9:32 AM CDT Narrative [facility] - 01/04/2024 1:52 PM CDT ? [facility] ?[address] [place], [place] ??[address] ? Test Date: ?2023-12-26 Pat Name: ? ELZA MCKEON ? Department: ?? 105 ? Room: ? Gender: ? Male ? Forge Tender: ?? msf : ?1960 ? Requested By: ABDULKADIR DOWNING Order Number: [id number] ?Reading : ?? Becki Nuñez ? Measurements Intervals ?[place] ? Rate: ? 100 ?P: ? IA: ? 0 ?QRS: ?37 QRSD: ? 118 ?T: ?-11 QT: ? 352 ? QTc: ?454 ? Interpretive Statements ATRIAL FIBRILLATION WITH RAPID VENTRICULAR RESPONSE RIGHT BUNDLE BRANCH BLOCK Procedure Note Becki Nuñez MD - 01/04/2024 [facility], [place] [address] [place] [address] Test Date: 2023-12-26 Pat Name: [facility] Department: 105 Room: Gender: Male Forge Tender: anu : 1960 Requested By: ABDULKADIR DOWNING Order Number: [id number] Reading MD: Becki Nuñez Measurements Intervals [place] Rate: 100 P: IA: 0 QRS: 37 QRSD: 118 T: -11 QT: 352 QTc: 454 Interpretive Statements ATRIAL FIBRILLATION WITH RAPID VENTRICULAR RESPONSE RIGHT BUNDLE BRANCH BLOCK us Abdulkadir Downing MD PROCEDURES-ORDERABLE NO CHARG E Final Result KIKE FROST documented in this encounter Visit Diagnoses Diagnosis Chronic diastolic heart failure ([facility])- Primary Chronic diastolic heart failure Coronary artery disease involving [place] coronary artery of [place] heart, unspecified whether angina present Paroxysmal atrial fibrillation ([facility]) Atrial fibrillation Essential (primary) hypertension Unspecified essential hypertension Hyperlipidemia, mixed Mixed hyperlipidemia intermediate designer use of drug Encounter for long-term (current) use of other medications Coronary artery disease involving [place] coronary artery of [place] heart, unspecified whether angina present- Primary Hyperlipidemia, mixed Mixed hyperlipidemia custodial use of drug Encounter for long-term (current) use of other medications documented in this encounter Care Teams Planer Off Bearer Relationship Specialty Start Date End Date Ti Bonilla MD [address] [place] [phone] PCP - General FAMILY PRACTICE 12/03/21 Elza Allan MD [place] [facility] Administrator CARDIOVASCULAR DISEASE 08/19/16 Raul Santana MD CLINICAL CARDIAC ELECTROPHYSIOLOGY 06/16/17 Danny Blackwell MD [address] [place] [phone] ORTHOPAEDIC SURGERY 05/01/19 Gayle Arce APRN, GOVERNMENT CONTRACTS MANAGER-C [address] [place] [address] [address] [place] [phone] NURSE PRACTITIONER 03/03/20 Mendel Shah DPM [address] [place] [address] [place] [address] Consulting Physician PODIATRY/SURGERY 06/27/23 06/26/24 Jyoti Escobar MD [address] [place] [address] INTERVENTIONAL CARDIOLOGY 12/27/23 documented as of this encounter
--- OUTSIDE RECORDS SUMMARY | 2024-04-23 04:21 | XMS_ITS | Encounter Summary ---
Author Organization [facility] Address [address] [place] [address]. [place] [address] [place] [address] Care Team Providers Care Education Coordinator Name Role Phone Evaristo Allan MD Unavailable Unavailabl Raul Duran MD Unavailable Unavailabl Danny Lopes MD Unavailable [phone] Gayle Arce APRN BOOTH CLEANER-C Unavailable Ti Bonilla MD Primary Care Provider [phone] Mendel Shah DPSallie Unavailable [phone] Reason for Visit * Reason Onset Date Comments Appointment Request 12/09/2023 Encounter Details Date Type Department Care Team (Late st Contact Info) Description 12/09/2023 Telephone [facility] ld [address] [place] [address] Carlos Sheth MD [address] [facility] [address] [place] [address] Appointment Request Social History Tobacco Use Types Packs/Day Years Used Date Smoking Tobacco: Never Smokeless Tobacco: Never Alcohol Use Standard Drinks/Week Comments Yes 0 (1 standard drink = 0.6 oz pur e alcohol) social C Utilities Answer Date Recorded In the past [...] any time in the past 12 m [facility], were you homeless or living in a assisted (including now)? 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 * Carlos Sheth MD - 12/09/2023 2:12 PM CDT Patient was hospitalized in November 2023 with exacerbation of CHF. Please see me in office in next 2to 4 weeks. documented in this encounter Plan of Treatment Upcoming Encounters Date Type Department Care Team (Late st Contact Info) Description 04/25/2024 11:00 AM INDOOR LANDSCAPE ARCHITECT Appointment [facility] [address] [place] [address] [place] [address] Ti Bonilla MD [address] [place] [phone] 05/23/2024 3:30 PM INDOOR LANDSCAPE ARCHITECT Office Visit [facility] [address] [place] [address] [place] [address] Jyoti Escobar MD [address] [place] [address] documented as of this encounter Goals Goal Patient Goal Type Associated Problems Recent Progress Patient-Stated? Author Safety ? Patient/family will have appropriate support at home upon discharge Lifestyle No Alex Lozano, feeder associate - family caregiver with be involved in care transitions and discharge planning Lifestyle No Alex Lozano, RN Patient will return to prior living situation and remain independent in ADLs upon discharge from hospital Lifestyle No Alex Lozano RN documented as of this encounter Visit Diagnoses Not on filedocumented in this encounter Care Teams Education Coordinator Relationship Specialty Start Date End Date Ti Bonilla MD [address] [place] [phone] PCP - General FAMILY PRACTICE 12/03/21 Evaristo Allan MD [place] Front Desk Clerk CARDIOVASCULAR DISEASE 08/19/16 Raul Santana MD CLINICAL CARDIAC ELECTROPHYSIOLOGY 06/16/17 Danny Blackwell MD [address] [place], [place] [phone] ORTHOPAEDIC SURGERY 05/01/19 Gayle Arce, JACK WINDER, BOOTH CLEANER-C [address] [facility] [address] [place] [address] NURSE PRACTITIONER 03/03/20 Mendel Shah DPM [address] [place] [address] Consulting Physician PODIATRY/SURGERY 06/27/23 06/26/24 documented as of this encounter
--- OUTSIDE RECORDS SUMMARY | 2024-04-23 04:21 | XMS_ITS | Encounter Summary ---
Author Organization [facility] Address [address] [place] [address]. [place], [place] [address] [place] [address] Care Team Providers Care Supervisor Powdered Sugar Name Role Phone Evaristo Allan MD Unavailable Unavailabl aRul Duran MD Unavailable Unavailabl Danny Lopes MD Unavailable [phone] Gayle Arce APRN, PROFESSOR OF PUBLIC ADMINISTRATION-C Unavailable Ti Bonilla MD Primary Care Provider Mendel Shah DPM Unavailable [phone] Jyoti Escobar MD Unavailable [phone] Reason for Visit * Reason Onset Date Comments Appointment Request 12/28/2023 Encounter Details Date Type Department Care Team (Late st Contact Info) Description 12/28/2023 Telephone [facility] [address] [place] [address] Jyoti Escobar MD [address] [place] [address] Appointment Request Social History Tobacco Use Types [...] any time in the past 12 m [facility], were you homeless or living in a chcf (including now)? 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 Escobar in [place] per Gayle Arce. documented in this encounter Plan of Treatment Upcoming Encounters Date Type Department Care Team (Late st Contact Info) Description 04/25/2024 11:00 AM CALENDER LET OFF OPERATOR Appointment [facility] [address] [place] [address] [place] [address] Ti Bonilla MD [address] [place] [phone] 05/23/2024 3:30 PM CALENDER LET OFF OPERATOR Office Visit [facility] [address] [place] [phone] Jyoti Escobar MD [address] [place], [place] [address] documented as of this encounter Goals Goal Patient Goal Type Associated Problems Recent Progress Patient-Stated? Author Safety ? Patient/family will have appropriate support at home upon discharge Lifestyle No Alex Lozano, panel machine tender - family caregiver with be involved in care transitions and discharge planning Lifestyle No Alex Lozano, RN Patient will return to prior living situation and remain independent in ADLs upon discharge from hospital Lifestyle No Alex Lozano RN documented as of this encounter Visit Diagnoses Not on filedocumented in this encounter Care Teams Supervisor Powdered Sugar Relationship Specialty Start Date End Date Ti Bonilla MD [address] [place] [phone] PCP - General FAMILY PRACTICE 12/03/21 Evaristo Allan MD [place] [facility] CARDIOVASCULAR DISEASE 08/19/16 Raul Santana MD CLINICAL CARDIAC ELECTROPHYSIOLOGY 06/16/17 Danny Blackwell MD [address] [place] [address] ORTHOPAEDIC SURGERY 05/01/19 Gayle Arce APRN, PROFESSOR OF PUBLIC ADMINISTRATION-C [address] [facility] [address] [place] [address] NURSE PRACTITIONER 03/03/20 Mendel Shah DPM [facility] [place] [address] Consulting Physician PODIATRY/SURGERY 06/27/23 06/26/24 Jyoti Escobar MD [address] [place] [address] INTERVENTIONAL CARDIOLOGY 12/27/23 documented as of this encounter
--- OUTSIDE RECORDS SUMMARY | 2024-04-23 04:21 | XMS_ITS | Encounter Summary ---
Author Organization [facility] Address [address] [place] [address]. [place] [phone] Care Team Providers Care Assistant Store Leader Name Role Phone Evaristo Allan MD Unavailable Unavailabl Raul Duran MD Unavailable Unavailabl Danny Loeps MD Unavailable [phone] Gayle Arce APRN, EDGE PLUGGER-C Unavailable [phone] Ti Bonilla MD Primary Care Provider [phone] Mendel Shah DPM Unavailable [phone] Jyoti Escobar MD Unavailable [phone] Encounter Details Date Type Department Care Team (Latest Contact Info) Description 03/20/2024 Travel Social History Tobacco Use Types Packs/Day Years Used Date Smoking Tobacco: Never Smokeless Tobacco: Never Alcohol Use Standard Drinks/Week Comments Yes 0 (1 standard drink = 0.6 oz pur e alcohol) social [facility] Utilities Answer Date Recorded In the past 12 months has e [employer], gas, oil, or water [employer] threatened to shut off services in your [...] any time in the past 12 m [facility], were you homeless or living in a retirement (including now)? 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 Author Safety ? Patient/family will have appropriate support at home upon discharge Lifestyle No Alex Lozano, patternmaker apprentice wood - family caregiver with be involved in care transitions and discharge planning Lifestyle No Alex Lozano, RN Patient will return to prior living situation and remain independent in ADLs upon discharge from hospital Lifestyle No Alex Lozano, RN documented as of this encounter Visit Diagnoses Not on filedocumented in this encounter Care Teams Assistant Store Leader Relationship Specialty Start Date End Date Ti Bonilla MD [address] [place] [address] PCP - General FAMILY PRACTICE 12/03/21 Evaristo Allan MD [place] Honey Extractor CARDIOVASCULAR DISEASE 08/19/16 Raul Santana MD CLINICAL CARDIAC ELECTROPHYSIOLOGY 06/16/17 Danny Blackwell MD [address] [place] [address] ORTHOPAEDIC SURGERY 05/01/19 Gayle Arce APRN, EDGE PLUGGER-C [address] [facility] [address] [address] NURSE PRACTITIONER 03/03/20 Mendel Shah DPM [address] [place] [address] Consulting Physician PODIATRY/SURGERY 06/27/23 06/26/24 Jyoti Escobar MD [address] [place], [place] [address] INTERVENTIONAL CARDIOLOGY 12/27/23 documented as of this encounter
--- OUTSIDE RECORDS SUMMARY | 2024-04-23 04:21 | XMS_ITS | Encounter Summary ---
Author Organization [facility] Address [address] [place] [address]. [place] [address] [place] [address] Care Team Providers Care Medical Office Supervisor Name Role Phone Evaristo Allan MD Unavailable Unavailabl Raul Duran MD Unavailable Unavailabl Danny Lopes MD Unavailable [phone] Gayle Arce APRN, FORENSIC EXAMINER-C Unavailable Ti Bonilla MD Primary Care Provider Mendel Shah DPSallie Unavailable [phone] Reason for Visit * Reason Onset Date Comments Schedule Procedure 10/12/2023 Encounter Details Date Type Department Care Team (Late st Contact Info) Description 10/12/2023 Telephone [facility] ld [address] [place] [address] Alfredo Gonsales, PA-C [address] [place] [address] Schedule Procedure Social History Tobacco Use Types Packs/Day Years Used Date Smoking Tobacco: Never Smokeless Tobacco: Never Alcohol Use Standard Drinks/Week Comments Yes 0 (1 standard drink = 0.6 oz pur e alcohol) social PHQ-2 Answer Date Recorded PHQ-2 Score - If the patient scores above 3, please move on to questions 3-9 0 12/03/2021 Sex and Gender Information Value Date Recorded Sex Assigned at Not on file Legal Sex Male 10:30 AM CDT Gender Identity Not on file Sexual Orientation Not on file 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 Answer Date of Assessment Author Status No 11/17/2021 3:30 PM CDT Activ e * Do you have serious difficulty walking or climbing stairs? Answer Date of Assessment Author Status No 11/17/2021 3:30 PM CDT Angela Mancuso RN Active * Do you have difficulty dressing or bathing? Answer Date of Assessment Author Status No 11/17/2021 3:30 PM CDT Angela Mancuso RN Active * Because of a physical, mental, or emotional condition, do you have difficulty doing errands alone such as visiting a doctor's office or shopping? Answer Date of Assessment Author Status No 11/17/2021 3:30 PM CDT Angela Mancuso RN Active documented as of this encounter Mental Status * Because of a physical, mental, or emotional condition, do you have serious difficulty concentrating, remembering, or making decisions? Answer Entry Date Author Status No 11/17/2021 3:30 PM CDT Angela Mancuso RN Active documented in this encounter Progress Notes * Alfredo Gonsales PA-C - 10/12/2023 12:41 PM CDT Please call pt to schedule catheter ablation of atypical atrial flutter. MCT with 100% atrial flutter. documented in this encounter Plan of Treatment Upcoming Encounters Date Type Department Care Team (Late st Contact Info) Description 04/25/2024 11:00 AM STOCK REPLENISHER Appointment [facility] [address] [facility] [place] [address] Ti Bonilla MD [address] [place] [phone] 05/23/2024 3:30 PM STOCK REPLENISHER Office Visit [facility] [address] [place] [phone] Jyoti Escobar MD [address] [place] [address] documented as of this encounter Visit Diagnoses Not on filedocumented in this encounter Care Teams Medical Office Supervisor Relationship Specialty Start Date End Date Ti Bonilla MD [address] [place] [phone] PCP - General FAMILY PRACTICE 12/03/21 Evaristo Allan MD [place] Ocularist CARDIOVASCULAR DISEASE 08/19/16 Raul Santana MD CLINICAL CARDIAC ELECTROPHYSIOLOGY 06/16/17 Danny Blackwell MD [address] [place] [address] ORTHOPAEDIC SURGERY 05/01/19 Gayle Arce APRN, FORENSIC EXAMINER-C [address] [place] [address] [address] [place] [phone] NURSE PRACTITIONER 03/03/20 Mendel Shah DPM [facility] [facility] [place] [address] Consulting Physician PODIATRY/SURGERY 06/27/23 06/26/24 documented as of this encounter
--- OUTSIDE RECORDS SUMMARY | 2024-04-23 04:21 | XMS_ITS | Encounter Summary ---
Author Organization [facility] Address [address] [place] [address]. [place] [address] [place] [address] Care Team Providers Care Field Superintendent Name Role Phone Evaristo Allan MD Unavailable Unavailabl Raul Duran MD Unavailable Unavailabl Danny Lopes MD Unavailable [phone] Gayle Arce APRN, LIBERAL ARTS TEACHER-C Unavailable [phone] Ti Bonilla MD Primary Care Provider Mendel Shah DPM Unavailable [phone] Encounter Details Date Type Department Care Team (Latest Contact Info) Description 09/09/2023 10:39 AM CDT - 09/09/2023 11:59 PM CDT Hospital Encounter [facility] [address] [facility] [place] [address] Gayle Arce APRN, LIBERAL ARTS TEACHER-C [address] [facility] [address] [place] [phone] Discharge Disposition: Home or Self Care (Routine [...] 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 Answer Date of Assessment Author Status No 11/17/2021 3:30 PM MIKKIT Angela Mancuso RN Active documented as of this encounter Mental Status * Because of a physical, mental, or emotional condition, do you have serious difficulty concentrating, remembering, or making decisions? Answer Entry Date Author Status No 11/17/2021 3:30 PM Angela Mora RN Active documented in this encounter Medications at Time of Discharge amitriptyline 100 MG tablet Take 1 tablet (100 mg total) by mouth nightly at bedtime. 09/10/2020 aspirin 81 MG chewable tablet Chew 1 tablet (81 mg total) by mouth daily. 04/19/2023 Continuous Glucose Transmitter (DEXCOM G6 TRANSMITTER) Misc Inject 1 Device into the skin as needed (DM). 03/14/2023 ELIQUIS 5 MG tablet Take 1 tablet (5 mg total) by mouth 2 (two) times daily. 06/24/2023 lisinopril (PRINIVIL) 10 MG tablet Take 1 tablet (10 mg total) by mouth daily. 06/23/2023 metFORMIN 850 MG tablet Take 1 tablet (850 mg total) by mouth 3 (three) times daily. 10/25/2018 NOVOLOG FLEXPEN 100 UNIT/ML injection (PEN) Inject 50 Units as directed 3 (three) times daily before meals. 09/13/2019 potassium chloride CR (KLOR-CON M) 20 MEQ tablet take one tablet by mouth daily 30 tablet 4 08/25/2023 traMADol 50 MG tablet Take 1 tablet (50 mg total) by mouth 3 (three) times a day. 11/19/2019 TRUEPLUS PEN NEEDLES 31G X 8 MM [facility] 01/19/2021 atorvastatin 40 MG tablet Take 0.5 tablets (20 mg total) by mouth nightly at bedtime. 4 BASAGLAR KWIKPEN 100 UNIT/ML injection (PEN) Inject 50 Units into the skin nightly at bedtime. 06/24/2023 4 famotidine 40 MG tablet Take 1 tablet (40 mg total) by mouth 2 (two) times daily. 12/06/2020 4 furosemide (LASIX) 40 MG tablet Take 1 tablet (40 mg total) by mouth 2 (two) times daily. 60 tablet 06/30/2023 4 gabapentin (NEURONTIN) 400 MG capsule Take 1 capsule (400 mg total) by mouth 3 (three) times daily. 06/23/2023 4 LEVEMIR FLEXPEN 100 UNIT/ML PEN Inject 50 Units into the skin 3 (three) times daily. 03/01/2023 4 lisinopril (PRINIVIL) 5 MG tablet Take 1 tablet (5 mg total) by mouth daily. 06/23/2023 4 metoprolol succinate ER (TOPROL-XL) 200 MG 24 hr tablet Take 1 tablet (200 mg total) by mouth 2 (two) times a day. 60 tablet 1 08/12/2023 4 nitroglycerin 0.[address] 1 tablet (0.4 mg total) under the tongue every 5 (five) minutes as needed for Chest Pain. 25 tablet 1 01/04/2018 4 tamsulosin 0.4 MG Cap Take 1 capsule (0.4 mg total) by mouth daily. 4 documented as of this encounter Plan of Treatment Upcoming Encounters Date Type Department Care Team (Late st Contact Info) Description 04/25/2024 11:00 AM MANAGER COMPLETIONS Appointment [facility] [address] [place] [address] [place] [address] Ti Bonilla MD [address] [place] [phone] 05/23/2024 3:30 PM MANAGER COMPLETIONS Office Visit [facility] [address] [facility] [place] [phone] Jyoti Escobar MD [address] [place] [phone] documented as of this encounter Procedures Procedure Name Priority Date/Time Associated Diagnosis Comments BASIC METABOLIC PANEL Routine 09/09/2023 10:45 AM CDT supervisor intermediates use of drug documented in this encounter Results * (ABNORMAL) BASIC METABOLIC PANEL (09/09/2023 10:45 AM CDT) SODIUM S/P/B 143 136 - 145 MMOL/L 09/09/2023 11:03 AM T [facility] POTASSIUM S/P/B 4.7 3.5 - 5.1 MMOL/L 09/09/2023 11:03 AM T [facility] CHLORIDE S/P/B 104 98 - 107 MMOL/L 09/09/2023 11:03 AM T [facility] CO2 33.3(H) 21.0 - 32.0 MMOL/L 09/09/2023 11:03 AM T [facility] GLUCOSE 130(H) 70 - 99 MG/DL 09/09/2023 11:03 AM T [facility] Comment: FASTING GLUCOSE 100 TO 125 MG/DL IS CONSISTENT WITH IMPAIRED FASTING GLUCOSE. FASTING GLUCOSE >125 MG/DL IS CONSISTENT WITH DIABETES. RANDOM GLUCOSE >200 MG/DL WITH HYPERGLYCEMIC SYMPTOMS IS CONSISTENT WITH DIABETES. PER ADA GUIDELINES BUN 15 6 - 24 MG/DL 09/09/2023 11:03 AM T [facility] CREATININE S/P/B 1.20 0.70 - 1.30 MG/DL 09/09/2023 11:03 AM CDT [facility] CALCIUM S/P/B 8.9 8.4 - 10.5 MG/DL 09/09/2023 11:03 AM CDT [facility] ANION GAP 5.7 5.0 - 15.0 MMOL/L 09/09/2023 11:03 AM CDT [facility] OSMOLALITY (CALC) 299 MOSM/KG 024 11:03 AM CDT [facility] Comment:REFERENCE RANGE NOT ESTABLISHED GFR ESTIMATE 68(L) >89 ML/MIN/1. 73 M2 09/09/2023 11:03 AM CDT [facility] GFR NOTES GFR REFERENCE S: 09/09/2023 11:03 AM CDT [facility] Comment: THE ESTIMATED GFR IS CALCULATED USING THE 2020 CKD-EPI EQUATION. THE FOLLOWING CATEGORIES FOR GRADING RENAL FUNCTION ARE RECOMMENDED BY THE INTERNATIONAL SOCIETY OF NEPHROLOGY (KDIGO 2012 CLINICAL PRACTICE GUIDELINE). G1,NORMAL OR HIGH: >89 ml/min/1.73 m2 G2,MILDLY DECREASED: 60-89 ml/min/1.73 m2 G3A,MILDLY TO MODERATELY DECREASED: 45-59 ml/min/1.73 m2 G3B,MODERATELY TO SEVERELY DECREASED: 30-44 ml/min/1.73 m2 G4,SEVERELY DECREASED: 15-29 ml/min/1.73 m2 G5,KIDNEY FAILURE: <15 ml/min/1.73 m2 09/09/2023 10:4 5 AM CDT us Gayle Arce APRN, LIBERAL ARTS TEACHER-C LABORATORY Final Result [facility] [address] [place] [address], documented in this encounter Visit Diagnoses Diagnosis supervisor intermediates use of drug Encounter for long-term (current) use of other medications documented in this encounter Care Teams Field Superintendent Relationship Specialty Start Date End Date Ti Bonilla MD [address] [place] [phone] PCP - General FAMILY PRACTICE 12/03/21 Evaristo Allan MD [place] Software Development Intern CARDIOVASCULAR DISEASE 08/19/16 Raul Santana MD CLINICAL CARDIAC ELECTROPHYSIOLOGY 06/16/17 Danny Blackwell MD [address] [place], [place] [phone] ORTHOPAEDIC SURGERY 05/01/19 Gayle Arce APRN, LIBERAL ARTS TEACHER-C [address] [facility] [address] [place] [phone] NURSE PRACTITIONER 03/03/20 Mendel Shah DPM [address] [place] [address] [place] [address] Consulting Physician PODIATRY/SURGERY 06/27/23 06/26/24 documented as of this encounter
--- OUTSIDE RECORDS SUMMARY | 2024-04-23 04:21 | XMS_ITS | Encounter Summary ---
Author Organization [facility] Address [address] [place] [address]. [place], [place] [address] [place], [place] [id number] Care Team Providers Care Fire Production Operator Name Role Phone Evaristo Allan MD Unavailable Unavailabl Raul Duran MD Unavailable Unavailabl Danny Lopes MD Unavailable [phone] Gayle Arce APRN, NURSING CONSULTANT-C Unavailable Ti Bonilla MD Primary Care Provider [phone] Mendel Shah DPM Unavailable [phone] Encounter Details Date Type Department Care Team (Latest Contact Info) Description 12/08/2023 Travel Social History Tobacco Use Types Packs/Day Years Used Date Smoking Tobacco: Never Smokeless Tobacco: Never Alcohol Use Standard Drinks/Week Comments Yes 0 (1 standard drink = 0.6 oz pur e alcohol) social [facility] Utilities Answer Date Recorded In the past 12 months has [facility] [employer], gas, oil, or water [employer] threatened to shut off services in your [...] any time in the past 12 m [facility], were you homeless or living in a mcfp (including now)? 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 Yes 12/08/2023 12:56 PM CDT Charlotte Mirza, SHRAVAN Active * Question Answer Date of Assessment Author Status Do you have difficulty dressing or bathing? No 12/08/2023 12:56 PM CDT Maria Luisa Mirza LPN Active Because of a physical, mental, or emotional condition, do you have difficulty doing errands alone such as visiting a doctor's office or shopping? No 12/08/2023 12:56 PM CDT Charlotte Mirza LPN Active * Are you deaf or do you [...] as of this encounter Mental Status * Question Answer Entry Date Author Status Because of a physical, mental, or emotional condition, do you have serious difficulty concentrating, remembering, or making decisions? No 12/08/2023 12:56 PM CDT Charlotte Mirza LPN Active * Because of a physical, mental, or emotional condition, do you have serious difficulty concentrating, remembering, or making decisions? Answer Entry Date Author Status No 12/08/2023 12:56 PM CDT [place] Mirza LPN Active documented in this encounter Plan of Treatment Upcoming Encounters Date Type Department Care Team (Late st Contact Info) Description 04/25/2024 11:[address] [facility] [address] [facility] [place] [place] [address] Ti Bonilla MD [address] [place] [phone] 05/23/2024 3:30 PM QUOTER Office Visit [facility] [address] [place] [phone] Jyoti Escobar MD [address] [place] [address] documented as of this encounter Visit Diagnoses Not on filedocumented in this encounter Care Teams Fire Production Operator Relationship Specialty Start Date End Date Ti Bonilla MD [address] [place] [phone] PCP - General FAMILY PRACTICE 12/03/21 Evaristo Allan MD [place] Inspector Boiler CARDIOVASCULAR DISEASE 08/19/16 Raul Santana MD CLINICAL CARDIAC ELECTROPHYSIOLOGY 06/16/17 Danny Blackwell MD [address] [place] [address] ORTHOPAEDIC SURGERY 05/01/19 Gayle Arce, PUG MACHINE OPERATOR, NURSING CONSULTANT-C [address] [place] [address] [address] [place] [address] NURSE PRACTITIONER 03/03/20 Mendel Shah DPM [facility] [place] [address] Consulting Physician PODIATRY/SURGERY 06/27/23 06/26/24 documented as of this encounter
--- OUTSIDE RECORDS SUMMARY | 2024-04-23 04:21 | XMS_ITS | Encounter Summary ---
Author Organization [facility] Address [address] [place] [address]. [place], [place] [address] [place], [place] [phone] Care Team Providers Care Custom Bookbinder Name Role Phone Evaristo Allan MD Unavailable Unavailabl Raul Duran MD Unavailable Unavailabl Danny Lopes MD Unavailable [phone] Gayle Arce APRN, BALLAST INSPECTOR-C Unavailable Ti Bonilla MD Primary Care Provider [phone] Mendel Shah DPM Unavailable [phone] Encounter Details Date Type Department Care Team (Latest Contact Info) Description 12/26/2023 Travel Social History Tobacco Use Types Packs/Day Years Used Date Smoking Tobacco: Never Smokeless Tobacco: Never Alcohol Use Standard Drinks/Week Comments Yes 0 (1 standard drink = 0.6 oz pur e alcohol) social [facility] Utilities Answer Date Recorded In the past [address] [facility] [employer], gas, oil, or water [employer] threatened to shut off services in your [...] any time in the past 12 m [facility], were you homeless or living in a mcfp (including now)? 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 file Not [...] st Contact Info) Description 04/25/2024 11:00 AM FOUNDER AND CHIEF EXECUTIVE OFFICER Appointment [facility] [address] [facility] [place] [address] Ti Bonilla MD [address] [place] [phone] 05/23/2024 3:30 PM FOUNDER AND CHIEF EXECUTIVE OFFICER Office Visit [facility] [address] [place] [phone] Jyoti Escobar MD [address] [place] [address] documented as of this encounter Goals Goal Patient Goal Type Associated Problems Recent Progress Patient-Stated? Author Safety ? Patient/family will have appropriate support at home upon discharge Lifestyle No Alex Lozano fire department marine engineer - family caregiver with be involved in care transitions and discharge planning Lifestyle No Alex Lozano, RN Patient will return to prior living situation and remain independent in ADLs upon discharge from hospital Lifestyle No Alex Lozano RN documented as of this encounter Visit Diagnoses Not on filedocumented in this encounter Care Teams Custom Bookbinder Relationship Specialty Start Date End Date Ti Bonilla MD [address] [place] [address] PCP - General FAMILY PRACTICE 12/03/21 Evaristo Allan MD [place] Rolled Seat Trimmer CARDIOVASCULAR DISEASE 08/19/16 Raul Santana MD CLINICAL CARDIAC ELECTROPHYSIOLOGY 06/16/17 Danny Blackwell MD [address] [place] [address] ORTHOPAEDIC SURGERY 05/01/19 Gayle Arce APRN, BALLAST INSPECTOR-C [address] [facility] [address] [place] [phone] NURSE PRACTITIONER 03/03/20 Mendel Shah DPM [address] [place] [address] Consulting Physician PODIATRY/SURGERY 06/27/23 06/26/24 documented as of this encounter
--- OUTSIDE RECORDS SUMMARY | 2024-04-23 04:21 | XMS_ITS | Encounter Summary ---
Author Organization [facility] Address [address] [place] [address]. [place] [address] [place] [address] Care Team Providers Care Pit Crew Support Worker Name Role Phone Evaristo Allan MD Unavailable Unavailabl Raul Duran MD Unavailable Unavailabl Danny Lopes MD Unavailable [phone] Gayle Arce APRN, NAIL MAKING MACHINE SETTER-C Unavailable Ti Bonilla MD Primary Care Provider Mendel Shah DPM Unavailable [phone] Reason for Visit * Reason Onset Date Comments Appointment Reminder 08/12/2023 Encounter Details Date Type Department Care Team ([facility] st Contact Info) Description 08/12/2023 Telephone [facility] [address] [place] [address] Gayle Arce APRN, NAIL MAKING MACHINE SETTER-C [address] [facility] [address] [place] [address] Appointment Reminder Social History Tobacco Use Types Packs/Day Years [...] 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 documented in this encounter Plan of Treatment Upcoming Encounters Date Type Department Care Team (Late st Contact Info) Description 04/25/2024 11:00 AM MANAGER OF HEALTH Appointment [facility] [address] [place] [address] Ti Bonilla MD [address] [place] [phone] 05/23/2024 3:30 PM MANAGER OF HEALTH [facility] [address] [place] [phone] Jyoti Escobar MD [address] [place], [place] [address] documented as of this encounter Visit Diagnoses Not on filedocumented in this encounter Care Teams Pit Crew Support Worker Relationship Specialty Start Date End Date Ti Bonilla MD [address] [place] [phone] PCP - General FAMILY PRACTICE 12/03/21 Evaristo Allan MD [place] [employer] Tech CARDIOVASCULAR DISEASE 08/19/16 Raul Santana MD CLINICAL CARDIAC ELECTROPHYSIOLOGY 06/16/17 Danny Blackwell MD [address] [place] [address] ORTHOPAEDIC SURGERY 05/01/19 Gayle Arce, PIT LABORER, NAIL MAKING MACHINE SETTER-C [address] [facility] [address] [place] [phone] NURSE PRACTITIONER 03/03/20 Mendel Shah DPM [address] [place] [address] Consulting Physician PODIATRY/SURGERY 06/27/23 06/26/24 documented as of this encounter
--- OUTSIDE RECORDS SUMMARY | 2024-04-23 04:21 | XMS_ITS | Encounter Summary ---
Author Organization [facility] Address [address] [place] [address]. [place], [place] [address] [place] [address] Care Team Providers Care Deputy Sheriff Civil Division Name Role Phone Evaristo Allan MD Unavailable Unavailabl Raul Duran MD Unavailable Unavailabl Danny Lopes MD Unavailable [phone] Gayle Arce APRN, FRONT END TECHNICIAN-C Unavailable Ti Bonilla MD Primary Care Provider Mendel Shah DPM Unavailable [phone] Encounter Details Date Type Department Care Team (Late st Contact Info) Description 07/11/2023 9:44 AM CDT - 07/11/2023 11:59 PM CDT Hospital Encounter [facility] [address] [place] [address] Olivia Pearson, FOOT SETTER [address] [place] [address] Discharge Disposition: Home or Self Care (Routine [...] 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 09/13/2019 traMADol 50 MG tablet Take 1 tablet (50 mg total) by mouth 3 (three) times a day. 11/19/2019 TRUEPLUS PEN NEEDLES 31G X 8 MM Misc 01/19/2021 atorvastatin 40 MG tablet Take 0.5 [...] daily. 06/23/2023 4 metoprolol succinate ER (TOPROL-XL) 100 MG 24 hr tablet Take 1 tablet (100 mg total) by mouth 2 (two) times a day. 60 tablet 1 06/30/2023 4 nitroglycerin 0.[address] 1 tablet (0.4 mg total) under the tongue every 5 (five) minutes as needed for Chest Pain. 25 tablet 1 01/04/2018 4 potassium chloride CR (KLOR-CON M) 20 MEQ tablet Take 1 tablet (20 mEq total) by mouth daily. 30 tablet 06/30/2023 4 tamsulosin 0.4 MG Cap Take 1 capsule (0.4 mg total) by mouth daily. 4 documented as of this encounter Plan of Treatment Upcoming Encounters Date Type Department Care Team (Late st Contact Info) Description 04/25/2024 11:00 AM LEAD PRESSMAN ROTO GRAVURE PRINTING Appointment [facility] [address] [place] [address] Ti Bonilla MD [address] [place] [phone] 05/23/2024 3:30 PM LEAD PRESSMAN ROTO GRAVURE PRINTING Office Visit [facility] [address] [place] [phone] Jyoti Escobar MD [address] [place], [place] [phone] documented as of this encounter Visit Diagnoses Not on filedocumented in this encounter Care Teams Deputy Sheriff Civil Division Relationship Specialty Start Date End Date Ti Bonilla MD [address] [place] [phone] PCP - General FAMILY PRACTICE 12/03/21 Evaristo Allan MD [place] Property Valuer CARDIOVASCULAR DISEASE 08/19/16 Raul Santana MD CLINICAL CARDIAC ELECTROPHYSIOLOGY 06/16/17 Danny Blackwell MD [address] [place] [address] ORTHOPAEDIC SURGERY 05/01/19 Gayle Arce APRN, FRONT END TECHNICIAN-C [address] [facility] [address] [place] [phone] NURSE PRACTITIONER 03/03/20 Mendel Shah DPM Count includes the [facility] [facility] [address] [place] [address] Consulting Physician PODIATRY/SURGERY 06/27/23 06/26/24 documented as of this encounter
--- OUTSIDE RECORDS SUMMARY | 2024-04-23 04:21 | XMS_ITS | Encounter Summary ---
Author Organization [facility] Address [address] [place] [address]. 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 Answer Date of Assessment Author Status No 11/17/2021 3:30 PM MIKKIT Angela Mancuso RN Active * Because of a physical, mental, or emotional condition, do you have difficulty doing errands alone such as visiting a doctor's office or shopping? Answer Date of Assessment Author Status No 11/17/2021 3:30 PM Angela Mora RN Active documented as of this encounter Mental Status * Because of a physical, mental, or emotional condition, do you have serious difficulty concentrating, remembering, or making decisions? Answer Entry Date Author Status No 11/17/2021 3:30 PM Angela Mora RN Active documented in this encounter Plan of Treatment Upcoming Encounters Date Type Department Care Team (Late st Contact Info) Description 04/25/2024 11:00 AM TIRE GROOVER Appointment [facility] [address] [place] [address] [place] [address] Ti Bonilla MD [address] [place] [phone] 05/23/2024 3:30 PM TIRE GROOVER Office Visit [facility] [address] [place] [phone] Jyoti Escobar MD [address] [place] [address] documented as of this encounter Visit Diagnoses Not on filedocumented in this encounter Care Teams Rod Buster Helper Relationship Specialty Start Date End Date Ti Bonilla MD [address] [place] [phone] PCP - General FAMILY PRACTICE 12/03/21 Evaristo Allan MD [place] Forest Ranger CARDIOVASCULAR DISEASE 08/19/16 Raul Santana MD CLINICAL CARDIAC ELECTROPHYSIOLOGY 06/16/17 Danny Blackwell MD [address] [place] [address] ORTHOPAEDIC SURGERY 05/01/19 Gayle Arce, COMMANDING OFFICER TRAFFIC DIVISION, BATTERBOARD SETTER-C [address] [facility] [address] [place] [address] NURSE PRACTITIONER 03/03/20 Mendel Shah DPM [address] [place] [address] Consulting Physician PODIATRY/SURGERY 06/27/23 06/26/24 documented as of this encounter
--- OUTSIDE RECORDS SUMMARY | 2024-04-23 04:21 | XMS_ITS | Encounter Summary ---
Author Organization [facility] Address [address] [place] [address]. [place], [place] [address] [place] [address] Care Team Providers Care Transportation Clerk Name Role Phone Evaristo Allan MD Unavailable Unavailabl Raul Duran MD Unavailable Unavailabl Danny Lopes MD Unavailable [phone] Gayle Arce APRN, CTRS-C Unavailable Ti Bonilla MD Primary Care Provider Mendel Shah DPM Unavailable [phone] Jyoti Escobar MD Unavailable [phone] Encounter Details Date Type Department Care Team (Late st Contact Info) Description 12/13/2023 Hospital Follow-up Call [facility] [address] [place] [address] April Shi, RN Social History Tobacco Use Types Packs/Day Years Used Date Smoking Tobacco: Never Smokeless Tobacco: Never Alcohol Use Standard Drinks/Week Comments Yes 0 (1 standard drink = 0.6 oz pur e alcohol) social [facility] Utilities Answer Date Recorded In the [...] 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 Answer Date of Assessment Author Status Yes 12/08/2023 12:56 PM CDT Charlotte Mirza LPN Active * Do you have difficulty dressing or bathing? Answer Date of Assessment Author Status No 12/08/2023 12:56 PM CDT Charlotte Mirza, RESEARCH PROGRAM ASSISTANT Active * Because of a physical, mental, [...] Zapata LPN Active documented in this encounter Plan of Treatment Upcoming Encounters Date Type Department Care Team (Late st Contact Info) Description 04/25/2024 11:00 AM MENTAL HEALTH PROGRAM DIRECTOR Appointment [facility] [address] [place] [address] Ti Bonilla MD [address] [place] [phone] 05/23/2024 3:30 PM MENTAL HEALTH PROGRAM DIRECTOR Office Visit [facility] [address] [place] [address] Jyoti Escobar MD [address] [place] [address] documented as of this encounter Goals Goal Patient Goal Type Associated Problems Recent Progress Patient-Stated? Author Safety ? Patient/family will have appropriate support at home upon discharge Lifestyle No Alex Lozano, independent driver - family caregiver with be involved in care transitions and discharge planning Lifestyle No Alex Lozano RN Patient will return to prior living situation and remain independent in ADLs upon discharge from hospital Lifestyle No Alex Lozano RN documented as of this encounter Visit Diagnoses Not on filedocumented in this encounter Care Teams Transportation Clerk Relationship Specialty Start Date End Date Ti Bonilla MD [address] [place] [address] PCP - General FAMILY PRACTICE 12/03/21 Evaristo Allan MD [place] Director Of Student Financial Services CARDIOVASCULAR DISEASE 08/19/16 Raul Santana MD CLINICAL CARDIAC ELECTROPHYSIOLOGY 06/16/17 Danny Blackwell MD [address] [place], [place] [phone] ORTHOPAEDIC SURGERY 05/01/19 Gayle Arce APRN, CTRS-C [address] [place] [address] [address] [place] [address] NURSE PRACTITIONER 03/03/20 Mendel Shah DPM [address] [place] [address] Consulting Physician PODIATRY/SURGERY 06/27/23 06/26/24 Jyoti Escobar MD [address] [place] [address] INTERVENTIONAL CARDIOLOGY 12/27/23 documented as of this encounter
--- OUTSIDE RECORDS SUMMARY | 2024-04-23 04:21 | XMS_ITS | Encounter Summary ---
Author Organization [facility] Address [address] [place] [address]. [place] [address] Care Team Providers Care Electrical Assembler Name Role Phone Evaristo Allan MD Unavailable Unavailabl Raul Duran MD Unavailable Unavailabl Danny Lopes MD Unavailable [phone] Gayle Arce APRN, RESOURCE ECONOMIST-C Unavailable Ti Bonilla MD Primary Care Provider [phone] Mendel Shah DPM Unavailable [phone] Jyoti Escobar MD Unavailable [phone] Encounter Details Date Type Department Care Team (Latest Contact Info) Description 02/29/2024 Travel Social History Tobacco Use Types Packs/Day Years Used Date Smoking Tobacco: Never Smokeless Tobacco: Never Alcohol Use Standard Drinks/Week Comments Yes 0 (1 standard drink = 0.6 oz pur e alcohol) social [facility] Utilities Answer Date Recorded In the past 12 months has e [employer] ([employer]), gas, oil, or water [employer] threatened to shut off services in your [...] any time in the past 12 m [facility], were you homeless or living in a skilled nursing (including now)? 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 Author Safety ? Patient/family will have appropriate support at home upon discharge Lifestyle No Alex Lozano, chip machine operator - family caregiver with be involved in care transitions and discharge planning Lifestyle No Alex Lozano, RN Patient will return to prior living situation and remain independent in ADLs upon discharge from hospital Lifestyle No Alex Lozano, RN documented as of this encounter Visit Diagnoses Not on filedocumented in this encounter Care Teams Electrical Assembler Relationship Specialty Start Date End Date Ti Bonilla MD [address] [place] [address] PCP - General FAMILY PRACTICE 12/03/21 Evaristo Allan MD [place] Brush Holder Inspector CARDIOVASCULAR DISEASE 08/19/16 Raul Santana MD CLINICAL CARDIAC ELECTROPHYSIOLOGY 06/16/17 Danny Blackwell MD [address] [place] [address] ORTHOPAEDIC SURGERY 05/01/19 Gayle Arce APRN, RESOURCE ECONOMIST-C [address] [facility] [address] [phone] NURSE PRACTITIONER 03/03/20 Mendel Shah DPM [address] [place] [address] Consulting Physician PODIATRY/SURGERY 06/27/23 06/26/24 Jyoti Escobar MD [address] [place], [place] [phone] INTERVENTIONAL CARDIOLOGY 12/27/23 documented as of this encounter
--- OUTSIDE RECORDS SUMMARY | 2024-04-23 04:21 | XMS_ITS | Encounter Summary ---
Author Organization [facility] Address [address] [place] [address]. [place], [place] [id number] [place] [id number] Care Team Providers Care Police Or Patrol Park Officer Name Role Phone Elza Allan MD Unavailable Unavailabl Raul Duran MD Unavailable Unavailabl Danny Lopes MD Unavailable [phone] Gayle Arce APRN, NP-C Unavailable Ti Zamora MD Primary Care Provider Mendel Shah DPSallie Unavailable [phone] Reason for Visit * Reason Comments Pre-Op Exam Atrial Flutter Encounter Details Date Type Department Care Team ([facility] Contact Info) Description 12/02/2023 1:30 PM CDT Office Visit [facility] [address] [place] [phone] Nandini Salcido NP [address] [facility] 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 Not on file Not on file documented as of this encounter Last Filed Vital Signs Vital Sign Reading Time Taken Comments Blood Pressure 116/68 12/02/2023 1:46 PM CDT Pulse 88 12/02/2023 1:46 PM CDT Temperature - - Respiratory Rate 18 12/02/2023 1:46 PM CDT Oxygen Saturation 93% 12/02/2023 1:46 PM CDT Inhaled Oxygen Concentration - - Weight 137 kg (302 lb) 12/02/2023 1:46 PM CDT Height 177.8 cm (5' 10 ) 12/02/2023 1:46 PM CDT Body Mass Index 43.33 12/02/2023 1:46 PM CDT documented in this encounter Functional Status * RETIRED Are [...] documented in this encounter Progress Notes * Nandini Salcido NP - 12/02/2023 1:30 PM CDT Images from the original note were not included. Cardiac Electrophysiology Clinic Note PATIENT NAME: Elza Mckeon : 1960 REFERRING PROVIDER: No ref. provider found PCP: TI ZAMORA MD Reason for Visit Atypical atrial flutter and paroxysmal atrial fibrillation History of Present Illness Mr. Mckeon is a very pleasant 63-year-old male with history of paroxysmal atrial fibrillation-statuspost catheter ablation [address] Santana-status post redo catheter ablation 11/17/21, coronary artery disease-status post PCI, recurrent persistent atypical atrial flutter-status post catheter ablation 11/17/21, hypertension, obstructive sleep apnea on CPAP, hyperlipidemia, diabetes, osteoarthritis, and coronary artery disease-status post PCI. He presents in clinic today with his for follow-up. He reports having fatigue and significant shortness of breath. He states that he can only was about 10 feet without stopping. He reports dizziness when standing and on exertion. He reports having chronic lower extremity edema. He continues on Eliquis without any major bleeding issues. ECG Atrial flutter at 92 bpm. Holter monitor 09/08/23 1. Atrial flutter persisted throughout the monitored period and was associated with well-controlledventricular response. 2. Symptoms correlated with atrial flutter at 80-100 bpm. Diagnosis Recurrent persistent left atrial flutter. S/P Catheter ablation 11/17/21. Atypical atrial flutter recurred. Symptomatic with shortness of breath. Paroxysmal atrial fibrillation. S/P catheter ablation 05/19/[address] Santana. S/P redo catheterablation 11/17/21. No evidence of recurrence since then. Nonischemic cardiomyopathy. LVEF 45-50% by echo 02/24/23. Chronic systolic heart failure. CAD. S/P PCI. SARAI on CPAP. Hypertension. Diabetes. Chronic anticoagulation with Eliquis for stroke prevention. No known history of stroke. Recommendations Proceed with catheter ablation of left atrial flutter. We have discussed the procedure with the patient, have answered patient's questions, and he verbalized understanding and agreed to proceed. Continue Eliquis for stroke prevention. Continue Toprol for rate control. Medications Current Outpatient Medications: Continuous Glucose [place] Helper (CLH GroupSTYLE LI 3 READER) Device, , Disp: , Rfl: Continuous Glucose Sensor (FREESTYLE LI 3 SENSOR) [facility], , Disp: , Rfl: Continuous Glucose Transmitter (DEXCOM G6 TRANSMITTER) [facility], , Disp: , Rfl: LEVEMIR FLEXPEN 100 UNIT/ML PEN, , Disp: , Rfl: OZEMPIC, 0.25 OR 0.5 MG/DOSE, 2 MG/3ML injection (PEN), INJECT 0.25MG SUBCUTANEOUSLY WEEKLY, Disp: , Rfl: amitriptyline 100 MG tablet, Take 1 tablet (100 mg total) by mouth nightly at bedtime., Disp: , Rfl: aspirin 81 MG chewable tablet, Chew 1 tablet (81 mg total) by mouth daily., Disp: , Rfl: atorvastatin 40 MG tablet, Take 0.5 tablets (20 mg total) by mouth nightly at bedtime., Disp: , Rfl: BASAGLAR KWIKPEN 100 UNIT/ML injection (PEN), Inject 50 Units into the skin nightly at bedtime., Disp: , Rfl: ELIQUIS 5 MG tablet, Take 1 tablet (5 mg total) by mouth 2 (two) times daily., Disp: , Rfl: famotidine 40 MG tablet, Take 40 mg by mouth 2 (two) times daily. , Disp: , Rfl: furosemide (LASIX) 40 MG tablet, take one tablet by mouth twice a day, Disp: 60 tablet, Rfl: 0 gabapentin (NEURONTIN) 400 MG capsule, Take 1 capsule (400 mg total) by mouth 3 (three) times daily., Disp: , Rfl: lisinopril (PRINIVIL) 10 MG tablet, Take 1 tablet (10 mg total) by mouth daily., Disp: , Rfl: metFORMIN 850 MG tablet, Take 1 tablet (850 mg total) by mouth 3 (three) times daily., Disp: , Rfl: metoprolol succinate ER (TOPROL-XL) 200 MG 24 hr tablet, take one tablet by mouth twice a day, Disp: 60 tablet, Rfl: 1 nitroglycerin 0.4 MG SL tablet, Place 1 tablet (0.4 mg total) under the tongue every 5 (five) minutes as needed for Chest Pain., Disp: 25 tablet, Rfl: 1 NOVOLOG FLEXPEN 100 UNIT/ML injection (PEN), Inject 50 Units as directed 3 (three) times daily before meals., Disp: , Rfl: potassium chloride CR (KLOR-CON M) 20 MEQ tablet, take one tablet by mouth daily, Disp: 30 tablet, Rfl: 4 tamsulosin 0.4 MG Cap, Take 1 capsule (0.4 mg total) by mouth daily., Disp: , Rfl: traMADol 50 MG tablet, Take 1 tablet (50 mg total) by mouth 3 (three) times a day., Disp: , Rfl: TRUEPLUS PEN NEEDLES 31G X 8 MM Misc, , Disp: , Rfl: Allergies Review of patient's allergies indicates: Allergen Reactions Tetracyclines & Related Other (see comment) Blisters in the mouth Doxycycline Other (see comment) and Rash Blisters in the mouth Past History Past Medical History: Diagnosis Date Abnormal stress test Arthritis 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 Coronary artery disease Diabetes ([facility]/HCC HHS/HCC) 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, limited to breakdown of skin (CMS/HCC HHS/HCC) Fatigue GERD (gastroesophageal reflux disease) Headache Hyperlipidemia Hypertension has had elevated B/P readings Kidney stone SARAI on CPAP Paroxysmal atrial fibrillation (CMS/HCC HHS/HCC) PONV (postoperative nausea and vomiting) Past Surgical History: Procedure Laterality Date CARDIAC CATHETERIZATION 01/04/2018 occluded prox RCA w/well developed [id number]-ge-rtzgo collaterals lvef 55-60% CARDIAC CATHETERIZATION 11/13/2018 FRACTURE SURGERY HC TOTAL KNEE REVISION Right 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 HERNIA REPAIR JOINT REPLACEMENT KNEE ARTHROPLASTY Bilateral LITHOTRIPSY XA ABLATION 05/19/2016 XA CORONARY INTERVENTION 03/24/2018 STATISTICS MANAGER PCI-mid RCA Social History Tobacco Use Smoking status: Never Smokeless tobacco: Never Vaping Use Vaping status: Never Used Substance Use Topics Alcohol use: Yes Comment: social Drug use: No Family History Problem Relation Name Age of Onset Hypertension Mother Hypertension Sister Cancer Brother Diabetes Brother Other (PVD) Brother Hypertension Sister No Known Problems Father No Known Problems Paternal Grandfather No Known Problems Paternal Grandmother No Known Problems Maternal Grandfather No Known Problems Maternal Grandmother Review of Systems Review of Systems Constitutional: Positive for malaise/fatigue. Negative for chills and fever. HENT: Negative for hearing loss, nosebleeds, sinus pain and tinnitus. Eyes: Negative for blurred vision and double vision. Respiratory: Positive for shortness of breath. Negative for cough and hemoptysis. Cardiovascular: Positive for leg swelling. Negative for chest pain and palpitations. Gastrointestinal: Negative for abdominal pain, blood in stool, heartburn, melena and nausea. Genitourinary: Negative for dysuria, hematuria and urgency. Musculoskeletal: Negative for joint pain and myalgias. Skin: Negative for rash. Neurological: Negative for dizziness, loss of consciousness, weakness and headaches. Endo/Heme/Allergies: Does not bruise/bleed easily. Psychiatric/Behavioral: Negative for depression. The patient is not nervous/anxious. Physical Examination Vitals: 12/02/23 1346 BP: 116/68 Pulse: 88 Resp: 18 SpO2: 93% Physical Exam Constitutional: General: He is not in acute distress. Appearance: Normal appearance. He is well-developed. He is obese. HENT: Nose: No mucosal edema. Mouth/Throat: Pharynx: No oropharyngeal exudate. Neck: Vascular: No JVD. Cardiovascular: Rate and Rhythm: Normal rate and regular rhythm. Chest Wall: PMI is not displaced. Heart sounds: S1 normal and S2 normal. No murmur heard. No gallop. Pulmonary: Effort: Pulmonary effort is normal. No respiratory distress. Breath sounds: Normal breath sounds. Abdominal: General: There is no abdominal bruit. Palpations: There is no mass. Tenderness: There is no abdominal tenderness. Musculoskeletal: General: No deformity. Normal range of motion. Cervical back: Neck supple. Right lower le+ Edema present. Left lower le+ Edema present. Skin: General: Skin is warm and dry. Neurological: Mental Status: He is alert and oriented to person, place, and time. Psychiatric: Behavior: Behavior normal. Thought Content: Thought content normal. Signed NANDINI SALCIDO NP 12/02/2023 documented in this encounter Plan of Treatment Upcoming Encounters Date Type Department Care Team (Late st Contact Info) Description 04/25/2024 11:00 AM CHILD THERAPIST Appointment [facility] [address] [place] [address] Ti Zamora MD [address] [place] [phone] 05/23/2024 3:30 PM CHILD THERAPIST Office Visit [facility] [address] [place] [address] [place] [phone] Jyoti Escobar MD [address] [place] [address] documented as of this encounter Procedures Procedure Name Priority Date/Time Associated Diagnosis Comments ELECTROCARDIOGRAM (NON MIDMARK ACQUIRED) Routine 12/02/2023 1:53 PM CDT Paroxysmal atrial fibrillation (CMS/HCC HHS/HCC) documented in this encounter Results * ELECTROCARDIOGRAM (12/02/2023 1:53 PM CDT) 12/02/2023 1:53 PM CDT Narrative [facility] - 12/13/2023 10:09 AM CDT ? [facility], [facility] ?[address] [place], [place] ??[address] ? Test Date: ?2023-12-02 Pat Name: ? ELZA MCKEON ? Department: ?? 105 ? Room: ? Gender: ? Male ? Core Layer Machine Operator: ?? ssb : ?1960 ? Requested By: JOSHUA YIN Order Number: [id number] ?Reading : ?? Leonid Khan ? Measurements Intervals ?Delancey ? Rate: ? 92 ? P: ? MA: ? 0 ?QRS: ?81 QRSD: ? 109 ?T: ?43 QT: ? 389 ? QTc: ?483 ? Interpretive Statements ATRIAL FLUTTER/TACHYCARDIA WITH ABERRANT CONDUCTION OR VENTRICULAR PREMATURE COMPLEXES LOW QRS VOLTAGE IN PRECORDIAL LEADS INCOMPLETE RIGHT BUNDLE BRANCH BLOCK MODERATE ST DEPRESSION Procedure Note Leonid Khan MD - 12/13/2023 [facility] [address] [place] [address] Test Date: 2023-12-02 Pat Name: [facility] Department: 105 Room: Gender: Male Core Layer Machine Operator: alena : 1960 Requested By: JOSHUA YIN Order Number: [id number] Jose Antonio MD: Leonid Khan Measurements Intervals Delancey Rate: 92 P: MA: 0 QRS: 81 QRSD: 109 T: 43 QT: 389 QTc: 483 Interpretive Statements ATRIAL FLUTTER/TACHYCARDIA WITH ABERRANT CONDUCTION OR VENTRICULARPREMATURE COMPLEXES LOW QRS VOLTAGE IN PRECORDIAL LEADS INCOMPLETE RIGHT BUNDLE BRANCH BLOCK MODERATE ST DEPRESSION us Joshua Yin MD PROCEDURES-ORDERABLE NO CHARGE F inal Result [facility] documented in this encounter Visit Diagnoses Diagnosis Atypical atrial flutter (CMS/HCC HHS/HCC)- Primary Atrial flutter Paroxysmal atrial fibrillation ([facility] HHS/[facility]) Atrial fibrillation documented in this encounter Care Teams Police Or Patrol Park Officer Relationship Specialty Start Date End Date Ti Zamora MD [address] [place] [phone] PCP - General FAMILY PRACTICE 12/03/21 Elza Allan MD [place] Chief Operator Hydroformer CARDIOVASCULAR DISEASE 08/19/16 Raul Santana MD CLINICAL CARDIAC ELECTROPHYSIOLOGY 06/16/17 Danny Blackwell MD [address] [place] [address] ORTHOPAEDIC SURGERY 05/01/19 Gayle Arce APRN, LOCOMOTIVE MECHANIC APPRENTICE-C [address] [facility] [address] [place] [phone] NURSE PRACTITIONER 03/03/20 Mendel Shah DPM [address] [place] [address] [place] [address] Consulting Physician PODIATRY/SURGERY 06/27/23 06/26/24 documented as of this encounter
--- OUTSIDE RECORDS SUMMARY | 2024-04-23 04:21 | XMS_ITS | Encounter Summary ---
Author Organization [facility] Address [address] [place] [address]. 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 on file Not [...] st Contact Info) Description 04/25/2024 11:00 AM SHERIFF OFFICER Appointment [facility] [address] [place] [address] [place] [address] Ti Bonilla MD [address] [place] [phone] 05/23/2024 3:30 PM SHERIFF OFFICER Office Visit [facility] [address] [place] [phone] Jyoti Escobar MD [address] [place] [address] documented as of this encounter Visit Diagnoses Not on filedocumented in this encounter Care Teams Student Officer Relationship Specialty Start Date End Date Ti Bonilla MD [address] [place] [phone] PCP - General FAMILY PRACTICE 12/03/21 Evaristo Allan MD [place] Horse Buyer CARDIOVASCULAR DISEASE 08/19/16 Raul Santana MD CLINICAL CARDIAC ELECTROPHYSIOLOGY 06/16/17 Danny Blackwell MD [address] [place] [address] ORTHOPAEDIC SURGERY 05/01/19 Gayle Arce, NEWS CLERK, EMU FARMER-C [address] [facility] [address] [place] [phone] NURSE PRACTITIONER 03/03/20 Mendel Shah DPM [address] [place] [address] Consulting Physician PODIATRY/SURGERY 06/27/23 06/26/24 documented as of this encounter
--- OUTSIDE RECORDS SUMMARY | 2024-04-23 04:21 | XMS_ITS | Encounter Summary ---
Author Organization [facility] Address [address] [place] [address]. [place], [place] [id number] [place] [id number] Care Team Providers Care Scientist Name Role Phone Elza Allan MD Unavailable Unavailabl Raul Duran MD Unavailable Unavailabl e Danny Blackwell MD Unavailable [phone] Gayle Arce APRN, CHOCOLATE PRODUCTION MACHINE OPERATOR-C Unavailable Ti Zamora MD Primary Care Provider Mendel Shah DPSallie Unavailable [phone] Reason for Referral * Procedure (Routine) - Pending Review Specialty Diagnoses / Procedures Referred By Conttianna ledbetter Referred To Contact Procedures Home O2 eval Home O2 eval Dior Morales MD 1 [place] [address] Phone: tel: fax: Referral ID Status Reason Start Date Expiration Date V isits Requested Visits Authorized [id number] Pending Review 12/10/2023 12/09/2024 1 1 * (Routine) - New Request Specialty Diagnoses / Procedures Referred By Charito ledbetter Referred To Contact Procedures CUSTOMER SUPPORT TECHNICIAN eval and treat Dior Morales MD [address] [place] [address] Phone: tel: fax: Referral ID Status Reason Start Date Expiration Date V isits Requested Visits Authorized [id number] New Request 12/09/2023 12/08/2024 1 1 * Imaging (Urgent) - Pending Review Specialty Diagnoses / Procedures Referred By Charito t Referred To Contact RADIOLOGY Procedures USE ECHOCARDIOGRAM W CON USE ECHOCARDIOGRAM Leonela Farias ACN-BC [address] [place] [address] Phone: tel: fax: Referral ID Status Reason Start Date Expiration Date V isits Requested Visits Authorized [id number] Pending Review 12/08/2023 12/07/2024 1 1 Reason for Visit * Auth/Cert (Routine) Specialty Diagnoses / Procedures Referred By Charito ledbetter Referred To Contact Diagnoses CHF exacerbation ([facility]) SOB CHF exacerbation Procedures GENERAL Deana Curry MD [address] [place] [address] Phone: tel: fax: Referral ID Status Reason Start Date Expiration Date Visits Re quested Visits Authorized [id number] 1 1 Encounter Details Date Type Department Care Team (Latest Contact Info) Description 12/08/2023 12:37 PM CDT - 12/11/2023 3:40 PM CDT Hospital Encounter [facility] Cardiovascular Care Unit [address] [place] [address] Deana Curry MD [address] [place] [id number] Willem Lora MD [address] [place], [place] [id number] Dior Morales MD [address] [place] [address] Discharge Disposition: Home or Self Care (Routine Discharge) Social History Tobacco Use Types Packs/Day Years Used Date Smoking Tobacco: Never Smokeless Tobacco: Never Alcohol Use Standard Drinks/Week Comments Yes 0 (1 standard drink = 0.6 oz pur e alcohol) social [facility] Utilities Answer Date Recorded In the past 12 months has e e[employer], gas, oil, or water [employer] threatened to shut off services in your [...] time in the past 12 m [facility], were you homeless or living in a chcf (including now)? 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 Not on file Not on file Not on file documented as of this encounter Last Filed Vital Signs Vital Sign Reading Time Taken Comments Blood Pressure 115/75 12/11/2023 12:35 PM CDT Pulse 93 12/11/2023 12:35 PM CDT Temperature 35.1 ??C (95.2 ??F) 12/11/2023 8:38 AM CD T Respiratory Rate 20 12/11/2023 8:38 AM CDT Oxygen Saturation 97% 12/11/2023 12:35 PM CDT Inhaled Oxygen Concentration - - Weight 124.4 kg (274 lb 4 oz) 12/10/2023 6:29 AM CDT Height 177.8 cm (5' 10 ) 12/08/2023 4:42 PM CDT Body Mass Index 39.35 12/08/2023 4:42 PM CDT documented in this encounter Functional Status * Question Answer Date of Assessment Author Status Do you have serious difficulty walking or climbing stairs? Yes 12/08/2023 12:56 PM CDT Charlotte Mirza LPN Active * Question Answer Date of Assessment [...] Mirza LPN Active documented in this encounter Discharge Summaries * Willem Lora MD - 12/11/2023 3:40 PM CDTSummary: Discharge Summary Images from the original note were not included. [facility] Hospitalist Discharge Summary Patient ID: Elza Mckeon [id number] 63-year-old 1960 Admit date: 12/08/2023 Expected Discharge Date: 12/11/2023 Primary care Physician: TI ZAMORA MD Admitting Physician: Deana Curry MD Discharge Physician: WILLEM LORA MD Admission Diagnoses: CHF exacerbation ([facility]) [I50.9] Discharge Diagnoses: Acute hypoxemic respiratory failure due to pulmonary edema Acute on chronic CHF with preserved EF Essential hypertension Past Medical History Past Medical History: Diagnosis Date Abnormal stress test Arthritis 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 Coronary artery disease Diabetes ([facility] HHS/HCC) 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, limited to breakdown of skin ([facility] H[facility]/HCC) Fatigue GERD (gastroesophageal reflux disease) Headache Hyperlipidemia Hypertension has had elevated B/P readings Kidney stone SARAI on CPAP Paroxysmal atrial fibrillation ([facility]) PONV (postoperative nausea and vomiting) Problem Based course: Acute hypoxemic respiratory failure due to pulmonary edema Acute on chronic CHF with preserved EF Essential hypertension Hyperlipidemia History of CAD TTE with EF 55 to 60%. X-ray with congestive heart failure and cardiomegaly. Hold diuresis today as creatinine has jumped up. Continue aspirin, statin, metoprolol succinate, losartan Appreciate cardiology assistance Cardiac rehab ordered. On supplemental oxygen. Home O2 evaluation ordered. Mild acute renal insufficiency on CKD 3 transitioned to p.o. diuretics as renal function stable Atrial flutter/fibrillation Underwent ablation in the past Continue Eliquis for secondary prevention Continue beta-francesca for rate control. Diabetes mellitus type 2 Continue Lantus sliding scale and Accu-Cheks. Will continue monitor just A1c 7.0. Elevated cardiac enzymes secondary to recent ablation. Hypomagnesemia requiring treatment Obstructive sleep apnea Continue CPAP at night. I suspect obesity hypoventilation syndrome as well. Also if he qualifies might benefit from transitioning from CPAP to BiPAP. Recommended patient and family to get referral for pulmonology on an outpatient basis, they verbalized understanding agreement. Chronic choking/dysphagia Consulted speech -- DDSI level 7 (general) with thin liquids Morbid obesity Consults: cardiology Procedures/Significant Diagnostic Studies: XR CHEST PORTABLE Final Result by User, [email or web address] (12/09 123) Portable chest INDICATION: Congestive heart failure. COMPARISON: November 18, 2021. TECHNIQUE: Single AP chest film. FINDINGS: Mild cardiomegaly is stable. There is pulmonary venous congestion and very mild interstitial edema, mainly on the right. No pleural fluid or pneumothorax. Structures are unremarkable. IMPRESSION: Cardiomegaly and congestive failure. Referred By: JANE ECHEVARRIA Interpreted By: Kris Woods MD, 12/09/2023 1:22 AM USE ECHOCARDIOGRAM W CON Final Result by User, [email or web address] (12/08 954) Echocardiography Report Pat.Name: ELZA MCKEON.ID: [id number] .Date: 12/08/2023 : [id number] WALE Stark EWDPROV EWDPROV Exam Time: 2:29:00 PM Study Type:ECHO W/CONTRAST COMPLETE Height: 70 in Weight: 302 lb BSA: 2.49 m2 Age: 9 1960,63Y Sex: M BP: 144/78 HR: 78 bpm Sonogrphr: Leonid Bautista RDCS, RVT Pat. Stat.:Inpatient CPT - 4: C8929 Reason for Study:Congestive heart failure Procedures: 2D, M-mode, Doppler, Color Flow, Definity was used to enhance endocardial definition. The study quality is technically adequate. Race: W ++++++++++++++++++++++++++++++++++++ SUMMARY: ++++++++++++++++++++++++++++++++++++ Estimated left ventricular ejection fraction is 55-60%. The right ventricular size is mildly enlarged. Right ventricular systolic function is normal. The left atrial size is mildly enlarged. No evidence of pericardial effusion. There is trace tricuspid regurgitation. ++++++++++++++++++++++++++++++++++++ FINDINGS: ++++++++++++++++++++++++++++++++++++ LV: The left ventricular size is mildly enlarged. The left ventricular systolic function is normal. Estimated left ventricular ejection fraction is 55-60%. The average E/e' is elevated at >12 and EF > or equal to 50. RV: The right ventricular size is mildly enlarged. Right ventricular systolic function is normal. LA: The left atrial size is mildly enlarged. RA: The right atrial size is normal. ROBBIN: No evidence of pericardial effusion. AO: Normal aortic root. PA: Unable to reliably quantitate pulmonary systolic pressure. PVn: Pulmonary vein velocity is consistent with normal left atrial pressures. SVn: Inferior vena cava is normal. Inferior vena cava shows >50% collapse with respiration consistent with normal right atrial pressure. AV: The aortic valve is trileaflet. No evidence of aortic valve stenosis. No evidence of aortic valve regurgitation. MV: Structurally normal mitral valve. Trace mitral regurgitation. No evidence of mitral stenosis. PV: The pulmonic valve is normal There is trace pulmonic regurgitation TV: The tricuspid valve appears structurally normal. There is trace tricuspid regurgitation. ++++++++++++++++++++++++++++++++++++ MEASUREMENTS: ++++++++++++++++++++++++++++++++++++ DOPPLER LVOT LVOTpkPG 3 mmHg LVOTmnPG 2 mmHg LVOTpkVel 92.7 cm/s (70-110) LVOT SV 63 ml LVOT TVI 19.4 cm LVOT CO 91.7 ml/s AV Forward Flow AV TVI 21.6 cm AV pkPG 5 mmHg AV pkVel 108 cm/s (100-170) Area (TVI) 2.94 cm2 (3-5)* AV mnVel 77.7 cm/s Area (Randolph) 2.81 cm2 (3-5)* AV mnPG 3 mmHg MV Forward Flow MV DeTm 185 msec MV pkE 96.8 cm/s (60-130) MV E/A 2.3 MV pkA 42.8 cm/s PV Forward Flow PV pkVel 89.5 cm/s (60-90) PV pkPG 3 mmHg Lat E' Lat e 9.36 cm/s Lat E/E' Lat E/e 10.3 Med E' Med e 5.55 cm/s Med E/E' Med E/e 17.4 Aortic Valve Aortic Valve Ar 1.18 Aortic Valve Ve 0.86 AV DI Value 0.9 AURORA (VTI) Index Value 1.18 LV Mass 2D Value 181 g LV Mass [id number] Value 72.7 g/m2 RA Volume Atrial Do 4.54 cm Atrial Do 18.3 cm2 Atrial Do 62.3 ml 2D Left Ventricle LVIDd 5.3 cm (3.6-5.2)* LVIDs 3.38 cm (2.3-3.9) LVPW LVPWd 0.906 cm Ventricular Septum IVSd 0.949 cm Left Atrium LA a-p 4.63 cm (2.8-3.4)* Aorta Ao Rtd 3.08 cm Ao Asc 3.17 cm (2.1-3.4) LVOT LVOT 2.04 cm Ratios IVS Right Ventricle Right Ventricle 5.26 cm MMODE TA Tricuspid Annul 2.93 cm <Electronic Signature> 12/09/2023 09:54 AM Jodie Sheth M.D. Lab Results Component Value Date CHOL 122 03/05/2017 TRI 79 03/05/2017 HDL 32 (L) 03/05/2017 LDL 74.2 03/05/2017 NA 137 12/11/2023 K 3.7 12/11/2023 CL 101 12/11/2023 CO2 33.3 (H) 12/11/2023 BUN 32 (H) 12/11/2023 CR 1.12 12/11/2023 CA 9.6 12/11/2023 GLU 76 12/11/2023 AGAP 2.7 12/11/2023 TP 7.3 12/10/2023 ALB 2.9 (L) 12/10/2023 AST 18 12/10/2023 ALT 33 12/10/2023 WBC 8.94 12/10/2023 HGB 11.5 (L) 12/10/2023 PLT 266 12/10/2023 HGBA1C 7.0 (H) 12/08/2023 INR Date Value Ref Range Status 12/08/2023 1.4 (H) 0.8 - 1.1 Final Discharged Condition: stable Code Status: Prior Discharge Exam: Patient was seen and examined on day of discharge, vitals were stable. Disposition: discharged to home Patient Instructions: Discharge Medication List as of 12/11/2023 3:20 PM START taking these medications Details empagliflozin (JARDIANCE) 10 MG tablet Take 1 tablet (10 mg total) by mouth daily., Starting 12/12/2023, Eprescribe OXYGEN CONCENTRATOR SUPPLY, DME, 1 Device by Nasal route continuous. Pt to use 2l o2 per nasal cannula. Pt may use a poc with 2l o2 per nasal cannula., Starting Tue12/11/2023, Fax CONTINUE these medications which have NOT CHANGED Details amitriptyline 100 MG tablet Take 1 tablet (100 mg total) by mouth nightly at bedtime., Starting Tue09/10/2020, Historical Med aspirin 81 MG chewable tablet Chew 1 tablet (81 mg total) by mouth daily., Starting Tue04/19/2023, Historical Med atorvastatin 40 MG tablet Take 0.5 tablets (20 mg total) by mouth nightly at bedtime., Historical Med Continuous Glucose Pharmacy Data Analyst (FREESTYLE LI 3 READER) Device Inject 1 Device into the skin as needed (DM)., Historical Med Continuous Glucose Sensor (FREESTYLE LI 3 SENSOR) Misc Inject 1 Device into the skin as needed.,Historical Med Continuous Glucose Transmitter (DEXCOM G6 TRANSMITTER) Misc Inject 1 Device into the skin as needed(DM)., Historical Med ELIQUIS 5 MG tablet Take 1 tablet (5 mg total) by mouth 2 (two) times daily., Starting Tue06/24/2023, Historical Med famotidine 40 MG tablet Take 1 tablet (40 mg total) by mouth 2 (two) times daily., Starting Tue12/06/2020, Historical Med furosemide (LASIX) 40 MG tablet take one tablet by mouth twice a day, Starting Tue12/06/2023, Eprescribe gabapentin (NEURONTIN) 400 MG capsule Take 1 capsule (400 mg total) by mouth 3 (three) times daily., Starting Tue06/23/2023, Historical Med LEVEMIR FLEXPEN 100 UNIT/ML PEN Inject 50 Units into the skin 3 (three) times daily., Historical Med lisinopril (PRINIVIL) 10 MG tablet Take 1 tablet (10 mg total) by mouth daily., Starting Tue06/23/2023, Historical Med metFORMIN 850 MG tablet Take 1 tablet (850 mg total) by mouth 3 (three) times daily., Starting Tue10/25/2018, Historical Med metoprolol succinate ER (TOPROL-XL) 200 MG 24 hr tablet take one tablet by mouth twice a day, Starting Tue12/06/2023, Eprescribe NOVOLOG FLEXPEN 100 UNIT/ML injection (PEN) Inject 50 Units as directed 3 (three) times daily before meals., Starting Tue09/13/2019, Historical Med OZEMPIC, 0.25 OR 0.5 MG/DOSE, 2 MG/3ML injection (PEN) Inject 0.25 mg into the skin every 7 days. Every sat, Historical Med potassium chloride CR (KLOR-CON M) 20 MEQ tablet take one tablet by mouth daily, Starting Tue08/25/2023, Eprescribe traMADol 50 MG tablet Take 1 tablet (50 mg total) by mouth 3 (three) times a day., Starting Tue11/19/2019, Historical Med TRUEPLUS PEN NEEDLES 31G X 8 MM Misc Starting Tue01/19/2021, Historical Med nitroglycerin 0.[address] 1 tablet (0.4 mg total) under the tongue every 5 (five) minutes as needed for Chest Pain., Starting Tue01/04/2018, Eprescribe tamsulosin 0.4 MG Cap Take 1 capsule (0.4 mg total) by mouth daily., Historical Med Wound Care: none needed Follow-up: Ti Zamora MD [address] [place] [id number] Schedule an appointment as soon as possible for a visit in 3 day(s) Hospital F/U for Acute hypoxemic respiratory failure due to pulmonary edema, Acute on chronic CHF with preserved EF and Essential hypertension Carlos Sheth MD [address] [facility] [address] [facility] [phone] Schedule an appointment as soon as possible for a visit in 1 week(s) CHF exacerbation Total time spent on discharge was 41 minutes. Thank you for choosing [facility]. Please call [phone] if you have any questions or concerns. Signed: WILLEM LORA MD 12/11/2023 8:09 PM documented in this encounter Discharge Instructions * Attachments The following attachments cannot be sent through Care Everywhere. * Heart Failure Discharge Instructions, Adult (Lebanese) * Low-sodium diet (Lebanese) documented in this encounter Medications at Time of Discharge amitriptyline 100 MG tablet Take 1 tablet (100 mg total) by mouth nightly at bedtime. 09/10/2020 aspirin 81 MG chewable tablet Chew 1 tablet (81 mg total) by mouth daily. 04/19/2023 Continuous Glucose Pharmacy Data Analyst (FREESTYLE LI 3 READER) Device Inject [...] by mouth 2 (two) times daily. 06/24/2023 furosemide (LASIX) 40 MG tablet take one tablet by mouth twice a day 120 tablet 12/06/2023 lisinopril (PRINIVIL) 10 MG tablet Take 1 tablet (10 mg total) by mouth daily. 06/23/2023 metFORMIN 850 MG tablet Take 1 tablet (850 mg total) by mouth 3 (three) times daily. 10/25/2018 metoprolol succinate ER (TOPROL-XL) 200 MG 24 hr tablet take one tablet by mouth twice a day 180 tablet 12/06/2023 NOVOLOG FLEXPEN 100 UNIT/ML injection (PEN) Inject 50 Units as directed 3 (three) times daily before meals. 09/13/2019 OXYGEN CONCENTRATOR SUPPLY, DME,Indications:CH F exacerbation ([facility]) 1 Device by Nasal route [...] mg total) by mouth nightly at bedtime. empagliflozin (JARDIANCE) 10 MG tablet Take 1 tablet (10 mg total) by mouth daily. 30 tablet 12/12/2023 4 famotidine 40 MG tablet Take 1 tablet (40 mg total) by mouth 2 (two) times daily. 12/06/2020 4 gabapentin (NEURONTIN) 400 MG capsule Take 1 capsule (400 mg total) by mouth 3 (three) times daily. 06/23/2023 4 LEVEMIR FLEXPEN 100 UNIT/ML PEN Inject 50 Units into the skin 3 (three) times daily. 03/01/2023 4 nitroglycerin 0.[address] 1 tablet (0.4 mg total) under the tongue every 5 (five) minutes as needed for Chest Pain. 25 tablet 1 01/04/2018 4 tamsulosin 0.4 MG Cap Take 1 capsule (0.4 mg total) by mouth daily. 4 documented as of this encounter Progress Notes * Orlando Dominguez CRT - 12/11/2023 1:59 PM CDT 12/11/23 1358 Home oxygen evaluation date and time Date of Evaluation 12/11/23 Evaluation Time 1358 Resting Oxygen Saturation Resting Oxygen Saturation on Oxygen 95 % Resting Oxygen Setting 2 Liters/minute Resting Saturation off Oxygen 87 % Exercise Oxygen Saturation Exercise Oxygen Saturation on Oxygen 90 % Exercise Oxygen Setting 2 Liters/Minute Distance Walked 200 Home Oxygen Evaluation Comment Oxygen Evaluation Comment pt qualifies for home o2, 2l o2 at all times. Home Oxygen Evaluation Charge $ Home Oxygen Evaluation Charge Yes * Chante Key RN - 12/11/2023 10:02 AM CDT 12/11/2391912/11/23 0945 12/11/23 0955 Therapeutic Exercise Exercise Modality -- -- Walking Activity Status Activity Status -- -- Post-Exercise Pulse Pulse -- -- (!) 105 Pulse Rhythm -- -- Regular Pulse Assessment Method -- -- Monitor Exercise Episode (Pulse) -- -- Post Exercise;Sitting Cardiac Monitoring Heart Rhythm -- -- st Blood Pressure BP -- -- 102/60 BP Location -- -- Left arm Exercise Episode (BP) -- -- Post Exercise;Sitting SpO2 SpO2 98 % 93 % (91-95% during ambulation) 91 % (91-93% on room air, I left patient on 1 liter, Sao2 increased 94-95%) O2 Device High flow nasal cannula (weaned down to room air for walk, Sao2 95%) None (Room air) None (Room air) O2 Flow Rate (L/min) 2 L/min -- (placed patient on 1 liter) Exercise Episode (SpO2) Pre Exercise -- Post Exercise;Sitting Gait Gait -- -- Steady;Good Balance Gait Assistance -- -- Gait Belt;Standby Assistance;Assistive Devices (4ww for oxygen if needed) Distance Distance Walked -- -- 600 Feet Exercise Patient Tolerance -- -- Well Patient Complaints Patient Complaints -- -- Denies Complaints Therapeutic Exercise Comment Therapeutic Exercise Comment -- last 100 feet, Sao2 dropped to 91% returned to recliner, legs elevated, table and call light within reach, at bedside Patient feels better today. His Sao2 was 93% and above until the last 100 feet of the walk. He stood and rested and focused on his breathing, Sao2 91% until he sat down in chair. Respiratory therapy is to do a home oxygen evaluation prior to discharge. Once resting Sao2 94% in 1 liter. * GRAHAM Kruger - 12/10/2023 2:59 PM CDT CUSTOMER SUPPORT TECHNICIAN Initial Clinical Dysphagia Evaluation Diet Recommendation: IDDSI level 7 (general) with thin liquids Recommendations: General aspiration precautions Alternate solids/liquids Discontinue with concerns for aspiration Summary Statement: This patient presents with clinically functional swallowing skills as evaluated at bedside and evidenced by gross tolerance of all consistencies trialed with no overt signs/symptoms of aspiration. Discussed at length that pt's swallowing skills appear WFls at bedside; however, there could be additional GI considerations and encouraged him to follow-up with his PCP. At this time, recommend continue current general/thin diet and ST will sign off. Should new concerns arise, please send new orders. Thank you for allowing us the opportunity to participate in the care of this patient. Ina Thomas, MS [facility]-CUSTOMER SUPPORT TECHNICIAN/L [phone] Objective: This patient was seen at bedside for initial swallowing evaluation. Patient accepted trials of thin liquid, pureed, and general and soft solid consistencies. Oral mechanism--Tongue protruded to midline and retracted and lateralized with good strength and range. Lips protruded and retracted with good strength and range. Good range of motion of jaw. Velum elevated symmetrically. There was no facial droop. Good condition of dentition. Patient's voice was WFLs. Cough effort was WFLs. Oral phase--Good lip seal around spoon and straw. Timely and complete anterior- posterior transit ofbolus within oral cavity. No anterior leakage or spillage and no oral holding or pocketing observed. Pharyngeal phase--Clinically timely trigger of the pharyngeal swallow. Clinically reduced hyolaryngeal elevation upon palpation. No clinical signs/symptoms of aspiration including choking, coughing or wet respiration. 12/10/23 1454 Therapy Visit CUSTOMER SUPPORT TECHNICIAN Received on 12/09/23 CUSTOMER SUPPORT TECHNICIAN Evaluation Completed on 12/10/23 Subjective Pt awake, alert, and upright in bed working on word search. Pt endorses feeling of things getting stuck and then I have to drink water to try to get it down but just end up vomiting. Reason for Admission per EMR, pt transferred from OSH with acute congestive heart failure. PMHx remarkable for DM2, afib, COPD, CAD, heart failure, HLD, SARAI with CPAP, HTN Comorbidities Relevant for CUSTOMER SUPPORT TECHNICIAN none Prior Level of Function pt lives at home with his - pt reported his recently had a swallow eval as well. Verified Two Patient Identifiers Yes Inpatient CUSTOMER SUPPORT TECHNICIAN Time Calculation CUSTOMER SUPPORT TECHNICIAN Start Time 1430 CUSTOMER SUPPORT TECHNICIAN Stop Time 1454 CUSTOMER SUPPORT TECHNICIAN Time Calculation (min) 24 min Pain Pain Patient does not offer or c/o pain Bedside Swallow Interventions Therapeutic trials with analysis of swallow function Therapeutic solid trials Level 7 Regular;Level 6 Soft and bite-sized;Level 4 Puree Therapeutic liquid trials Level 0 Thin Oral phase during therapeutic trials WFL Pharyngeal phase during therapeutic trials WFL Symptomatic for aspiration/penetration No Therapeutic trials comment see body of note for objective data Swallowing impressions/assessment WFLs CUSTOMER SUPPORT TECHNICIAN Recommendations Ongoing Recommendations No skilled CUSTOMER SUPPORT TECHNICIAN Recommended Diet Change No Previous Diet general/thin Recommended Solid Diet Level 7 Regular Transitional Food Permitted Yes Recommended Liquid Consistency Level 0 Thin Recommended Medication Form Whole Recommended Safety Precautions Small sips and bites when eating;Slow rate: swallow between bites;Alternate Liquids and solids Understanding of information was judged to be WFls Results/Recommendations discussed with pt, RN, MD Plan Progress Discontinue CUSTOMER SUPPORT TECHNICIAN CUSTOMER SUPPORT TECHNICIAN Plan for Next Session discontinue CUSTOMER SUPPORT TECHNICIAN Next Appointment 12/10/23 If this is the last treatment note, it will serve as the discharge summary Yes End of Session End of Session Safety Call light within reach;Nursing aware of session Interdisciplinary Collaboration discussed all with RN and MD * Chante Key RN - 12/10/2023 2:09 PM CDT 12/10/23 1345 12/10/23 1350 12/10/23 1405 Therapeutic Exercise Exercise Modality Rest Walking Walking Activity Status Activity Status Pre-Exercise -- Post-Exercise Pulse Pulse 96 -- 78 Pulse Rhythm Regular -- Regular Pulse Assessment Method Monitor -- Monitor Exercise Episode (Pulse) Pre Exercise;Lying -- Post Exercise;Sitting Cardiac Monitoring Heart Rhythm sr -- sr Blood Pressure BP 104/68 -- 98/70 BP Location Left arm -- Left arm Exercise Episode (BP) Pre Exercise;Lying Mid Exercise Post Exercise;Sitting SpO2 SpO2 96 % (!) 89 % (89-90% on 2 liters while ambulating, encouraged deep breathing through nose and less talking whilewalking) 94 % O2 Device High flow nasal cannula Nasal cannula High flow nasal cannula O2 Flow Rate (L/min) 3 L/min (weaned to 2 liters, Sao2 at rest 95%, once oxygen was weaned off at rest Sao2 86-88%) -- 2 L/min Exercise Episode (SpO2) Pre Exercise;Lying;Sitting Mid Exercise;Standing Post Exercise;Sitting Gait Gait -- -- Steady;Fair Balance Gait Assistance -- -- Gait Belt;Assistive Devices;Standby Assistance (4ww) Distance Distance Walked -- -- 200 Feet Distance Comment -- -- he states this is the farthest he has been able to walk in months Exercise Patient Tolerance -- -- Fair Patient Complaints Patient Complaints -- -- Denies Complaints Therapeutic Exercise Comment Therapeutic Exercise Comment patient placed on 2 liters O2 for ambulation -- returned to bed, call light within reach, SAo2 95-96% with rest CHF Take Home message provided to patient. He said they use Mrs De La Rosa at home. EF 55-60% Meds currently Prescribed: Toprol XL Education provided on following topics: 1)Guidelines for daily weights- (same time each morning, after toileting, with same amount of clothing. 2) HF symptoms to notify MD: Weight gain of 3 lbs in 1 day/ 5lbs in 7 days, peripheral edema, abdominal bloating, increasing SOB, decreased activity tolerance, orthopnea, PND, increasing cough. 3) Limiting salt/sodium intake. Encouraged less than 1500-2000mg sodium daily. Review of foods to avoid, making better choices, hidden sodium in foods, understanding a food label and choosing items with < 10% sodium per serving , using no sodium added canned items, avoiding boxed/ processed foods, choosing fresh/frozen foods. 4) Importance of regular MD follow up as scheduled 5) Importance of taking medication as directed. Does pt forsee any difficulty obtaining/ taking medications? no 6) Review of other risk factors Blood Pressure, Diabetes, Obesity, and Inactivity Handouts discussed and provided to patient: Making Better Food Choices, Dining Out on a Low Sodium Diet, Daily weight record. I also provided patient with Low Sodium Meal Plans and Recipe booklet. Methods: One to One, Verbal Instruction, and Written Instruction Recipient: Patient Readiness to Learn: Ready Barriers to learning: None Teaching Response: Teaching Completed and Verbalizes Understanding * Dior Morales MD - 12/10/2023 12:15 PM CDT Images from the original note were not included. [facility] Hospitalist Progress note Chief Complain: Exertional dyspnea ASSESSMENT /PLAN: Acute hypoxemic respiratory failure due to pulmonary edema Acute on chronic CHF with preserved EF Essential hypertension Hyperlipidemia History of CAD TTE with EF 55 to 60%. X-ray with congestive heart failure and cardiomegaly. Hold diuresis today as creatinine has jumped up. Continue aspirin, statin, metoprolol succinate, losartan Appreciate cardiology assistance Cardiac rehab ordered. On supplemental oxygen. Home O2 evaluation ordered. Mild acute renal insufficiency on CKD 3 Hold diuresis today, repeat BMP tomorrow probably can transition to p.o. diuretics if renal function stable and monitor for another day. Atrial flutter/fibrillation Underwent ablation in the past Continue Eliquis for secondary prevention Continue beta-francesca for rate control. Diabetes mellitus type 2 Continue Lantus sliding scale and Accu-Cheks. Will continue monitor just A1c 7.0. Elevated cardiac enzymes secondary to recent ablation. Hypomagnesemia requiring treatment Obstructive sleep apnea Continue CPAP at night. I suspect obesity hypoventilation syndrome as well. Also if he qualifies might benefit from transitioning from CPAP to BiPAP. Recommended patient and family to get referral for pulmonology on an outpatient basis, they verbalized understanding agreement. Chronic choking/dysphagia Consulted speech. Morbid obesity Body mass index is 39.35 kg/m??. DVT Prophylaxis: Nereida Code Status: Full Code Disposition/Discharge plan: Pending clinical course on IV diuresis with heart failure. SUBJECTIVE Shortness of breath improved OBJECTIVE Blood pressure 108/86, pulse 95, temperature 96.4 ??F (35.8 ??C), temperature source Tympanic, resp. rate 20, height 1.778 m (5' 10 ), weight 124.4 kg (274 lb 4 oz), SpO2 100%. Wt Readings from Last 3 Encounters: 12/10/23 124.4 kg (274 lb 4 oz) 12/05/23 (!) 137.3 kg (302 lb 11.1 oz) 12/02/23 (!) 137 kg (302 lb) ROS 5 ROS negative except as above. Physical Exam General Appearance: : Well Developed Skin: : Normal Color Head: : Normocephalic Eyes: : Conjunctiva Clear ENT: : Oropharynx Normal Neck: : Non-Tender Chest and Respiratory: : Decreased air entry bilaterally. Heart: : No Murmur: Regular Rate/Rythm Abdominal: No Organomegaly Non-Tender Normal Bowel Sounds Soft Vascular: : Normal Capillary Refill Musculoskeletal: : Bilateral lower extremity pitting edema. Neurologic: : Alert and Oriented X3: CN 2-12 Intact: No Gross Motor Deficits Mental Status: : Normal Affect Back: : Non Tender Peripheral Pulses: Present Dorsalis Pedis - L, Present Dorsalis Pedis - R LABS: Recent Labs 12/08/23 1422 12/09/23 0440 12/10/23 0706 WBC 9.58 12.04* 8.94 HGB 11.1* 11.0* 11.5* HCT 35.3* 35.7* 38.3 MCV 87.6 86.9 90.5 PLT 202 236 266 RBC 4.03* 4.11* 4.23* Recent Labs 12/08/23 1422 12/09/23 0440 12/10/23 0706 ALT 40 -- 33 AST 21 -- 18 CO2 27.0 31.7 31.7 CL 100 100 101 GLU 251* 144* 131* K 4.6 4.3 3.8 NA 134* 137 139 BUN 17 24* 35* Intake/Output Summary (Last 24 hours) at 12/10/2023 1215 Last data filed at 12/10/2023 0900 Gross per 24 hour Intake 240 ml Output 2500 ml Net -2260 ml Microbiology Results (last 14 days) No results found for the last 336 hours. Radiology MEDICATIONS Scheduled medications amitriptyline 100 mg Oral Nightly at bedtime apixaban 5 mg Oral BID aspirin 81 mg Oral Daily atorvastatin 20 mg Oral Nightly at bedtime empagliflozin 10 mg Oral Daily famotidine 40 mg Oral BID gabapentin 400 mg Oral TID insulin glargine 25 Units Subcutaneous Nightly at bedtime insulin lispro 0-6 Units Subcutaneous 4x Daily AC and at bedtime insulin lispro 20 Units Subcutaneous TID WC losartan 50 mg Oral Daily metoprolol succinate ER 200 mg Oral BID potassium chloride CR 20 mEq Oral Daily traMADol 50 mg Oral TID Infusion PRN acetaminophen, naLOXone, ondansetron, polyethylene glycol DIORPORFIRIO MORALES MD 12:15 PM 12/10/2023 * Atul Gaitan RN - 12/10/2023 12:11 AM CDT Problem: Discharge Planning Goal: Knowledge of discharge plan Outcome: Progressing Problem: Activity Intolerance Goal: Improved activity tolerance Outcome: Progressing Goal: Able to participate in acute rehabilitation Outcome: Progressing Goal: Able to perform prescribed physical activity Outcome: Progressing Problem: Anxiety Goal: Alleviation of anxiety Outcome: Progressing Problem: Pain - Acute Goal: Achieve acceptable pain level Outcome: Progressing Problem: Reduced risk for falls/injury Goal: Reduced Risk for Falls/Injury Outcome: Progressing Goal: Reduced Risk of Confusion (Acute vs Chronic) Outcome: Progressing Goal: Reduced Risk of Symptomatic Depression Outcome: Progressing Goal: Reduced Risk of Altered Elimination Outcome: Progressing Goal: Reduced Risk of Dizziness/Vertigo/Balance Outcome: Progressing Goal: Reduced Risk of Polypharmacy Outcome: Progressing * April Mae RN - 12/09/2023 10:49 PM CDT Problem: Discharge Planning Goal: Knowledge of discharge plan Outcome: Progressing Problem: Activity Intolerance Goal: Improved activity tolerance Outcome: Progressing Goal: Able to participate in acute rehabilitation Outcome: Progressing Goal: Able to perform prescribed physical activity Outcome: Progressing Problem: Anxiety Goal: Alleviation of anxiety Outcome: Progressing * Alex Lozano RN - 12/09/2023 3:39 PM CDT 12/09/23 5896 Interdisciplinary Group Conference Team Members Present Physician;Case/Care management;Nursing Physician present for group conference Dr. Markell Morales Barriers to Discharge Barriers Complex - Social and/or Medical Complex - Social and/or Medical follow up EP, CUSTOMER SUPPORT TECHNICIAN to see. Cardio following, cont high dose beta francesca, Lasix IV bid, MD monitoring l&O, lytes, renal function, dly wts, O2. Patient expects to be discharged to: Home or Self care no new needs (independent, lives with spouse) * Dior Morales MD - 12/09/2023 2:22 PM CDT Images from the original note were not included. [facility] Hospitalist Progress note Chief Complain: Exertional dyspnea ASSESSMENT /PLAN: Acute hypoxemic respiratory failure due to pulmonary edema Acute on chronic CHF with preserved EF Essential hypertension Hyperlipidemia History of CAD TTE with EF 55 to 60%. X-ray with congestive heart failure and cardiomegaly. Will continue IV diuresis on 40 mg IV twice daily monitor renal function electrolytes Continue aspirin, statin, metoprolol succinate, losartan Appreciate cardiology assistance Cardiac rehab consulted. On supplemental oxygen. Home O2 evaluation prior to discharge. Atrial flutter/fibrillation Underwent ablation in the past Continue Eliquis for secondary prevention Continue beta-francesca for rate control. Diabetes mellitus type 2 Continue Lantus sliding scale and Accu-Cheks. Will continue monitor just A1c 7.0. Elevated cardiac enzymes secondary to recent ablation. Hypomagnesemia requiring treatment Obstructive sleep apnea Continue CPAP at night. I suspect obesity hypoventilation syndrome as well. Also if he qualifies might benefit from transitioning from CPAP to BiPAP. Recommended patient and family to get referral for pulmonology on an outpatient basis, they verbalized understanding agreement. Chronic choking/dysphagia Consulted speech. Morbid obesity Body mass index is 37.17 kg/m??. DVT Prophylaxis: Eliquis Code Status: Full Code Disposition/Discharge plan: Pending clinical course on IV diuresis with heart failure. SUBJECTIVE Patient seen and examined. Tells me his shortness of breath with exertion has slightly improved Does not use oxygen at home OBJECTIVE Blood pressure (!) 127/111, pulse 74, temperature 97.7 ??F (36.5 ??C), temperature source Oral, resp. rate 16, height 1.778 m (5' 10 ), weight 117.5 kg (259 lb 0.7 oz), SpO2 94%. Wt Readings from Last 3 Encounters: 12/09/23 117.5 kg (259 lb 0.7 oz) 12/05/23 (!) 137.3 kg (302 lb 11.1 oz) 12/02/23 (!) 137 kg (302 lb) ROS 5 ROS negative except as above. Physical Exam General Appearance: : Well Developed Skin: : Normal Color Head: : Normocephalic Eyes: : Conjunctiva Clear ENT: : Oropharynx Normal Neck: : Non-Tender Chest and Respiratory: : Decreased air entry bilaterally. Heart: : No Murmur: Regular Rate/Rythm Abdominal: No Organomegaly Non-Tender Normal Bowel Sounds Soft Vascular: : Normal Capillary Refill Musculoskeletal: : Bilateral lower extremity pitting edema. Neurologic: : Alert and Oriented X3: CN 2-12 Intact: No Gross Motor Deficits Mental Status: : Normal Affect Back: : Non Tender Peripheral Pulses: Present Dorsalis Pedis - L, Present Dorsalis Pedis - R LABS: Recent Labs 12/08/23142112/09/23 0440 WBC 9.58 12.04* HGB 11.1* 11.0* HCT 35.3* 35.7* MCV 87.6 86.9 PLT 202 236 RBC 4.03* 4.11* Recent Labs 12/08/232 12/09/23 0440 ALT 40 -- AST 21 -- CO2 27.0 31.7 CL 100 100 GLU 251* 144* K 4.6 4.3 NA 134* 137 BUN 17 24* Intake/Output Summary (Last 24 hours) at 12/09/2023 142 Last data filed at 12/09/2023 0500 Gross per 24 hour Intake 240 ml Output 1700 ml Net -1460 ml Microbiology Results (last 14 days) No results found for the last 336 hours. Radiology MEDICATIONS Scheduled medications amitriptyline 100 mg Oral Nightly at bedtime apixaban 5 mg Oral BID aspirin 81 mg Oral Daily atorvastatin 20 mg Oral Nightly at bedtime empagliflozin 10 mg Oral Daily famotidine 40 mg Oral BID furosemide 40 mg Intravenous BID gabapentin 400 mg Oral TID insulin glargine 25 Units Subcutaneous Nightly at bedtime insulin lispro 0-6 Units Subcutaneous 4x Daily AC and at bedtime insulin lispro 20 Units Subcutaneous TID WC losartan 50 mg Oral Daily metoprolol succinate ER 200 mg Oral BID potassium chloride CR 20 mEq Oral Daily traMADol 50 mg Oral TID Infusion PRN acetaminophen, naLOXone, ondansetron, polyethylene glycol DIOR MORALES MD 2:22 PM 12/09/2023 * Carlos Sheth MD - 12/09/2023 1:55 PM CDT Images from the original note were not included. Subjective CHIEF COMPLAINT: Elza was seen for follow up of congestive heart failure Subjective: Elza is now feeling well, could not sleep last night. No chest pains, shortness of breath improved some. Review of Systems: Review of Systems Constitutional: Negative for new or significant fatigue. Respiratory: Negative for new or significant shortness of breath. Cardiovascular: See HPI. Gastrointestinal: Negative for heartburn and blood in stool. Neurological: Negative for focal weakness. Medications: Scheduled Meds: amitriptyline 100 mg Oral Nightly at bedtime apixaban 5 mg Oral BID aspirin 81 mg Oral Daily atorvastatin 20 mg Oral Nightly at bedtime empagliflozin 10 mg Oral Daily famotidine 40 mg Oral BID furosemide 40 mg Intravenous BID gabapentin 400 mg Oral TID insulin glargine 25 Units Subcutaneous Nightly at bedtime insulin lispro 0-6 Units Subcutaneous 4x Daily AC and at bedtime insulin lispro 20 Units Subcutaneous TID WC losartan 50 mg Oral Daily metoprolol succinate ER 200 mg Oral BID potassium chloride CR 20 mEq Oral Daily traMADol 50 mg Oral TID Continuous Infusions: Objective Vitals: 12/09/23 0932 BP: (!) 127/111 Pulse: 74 Resp: Temp: SpO2: 94% Last Recorded Weight 12/09/23 0500 Weight: 117.5 kg (259 lb 0.7 oz) Body mass index is 37.17 kg/m??. Weight change in the last 24 hours: an appropriate measurement is not found Intake/Output Summary (Last 24 hours) at 12/09/2023 1412 Last data filed at 12/09/2023 0500 Gross per 24 hour Intake 240 ml Output 1700 ml Net -1460 ml Physical Exam Vitals and nursing note reviewed. Constitutional: General: He is not in acute distress. Neck: Vascular: No JVD. Cardiovascular: Heart sounds: No murmur heard. No gallop. Pulmonary: Breath sounds: Normal breath sounds. Abdominal: Palpations: Abdomen is soft. Neurological: Mental Status: He is alert. Pertinent Labs: Lab Results Component Value Date NA 137 12/09/2023 K 4.3 12/09/2023 CL 100 12/09/2023 CO2 31.7 12/09/2023 BUN 24 (H) 12/09/2023 BUN 17 12/08/2023 CR 1.07 12/09/2023 CR 1.15 12/08/2023 GFRNON 64 (L) 06/02/2021 GFR 74 (L) 06/02/2021 GLU 144 (H) 12/09/2023 CA 9.5 12/09/2023 TROP 119 (H) 12/08/2023 TROP 155 (H) 12/08/2023 PBNP 526 (H) 12/08/2023 Lab Results Component Value Date WBC 12.04 (H) 12/09/2023 HGB 11.0 (L) 12/09/2023 PLT 236 12/09/2023 INR 1.4 (H) 12/08/2023 Lab Results Component Value Date ALB 3.0 (L) 12/08/2023 ALT 40 12/08/2023 HGBA1C 7.0 (H) 12/08/2023 Radiology Imaging: Radiology Results (Last 48 hours) 12/08/23 1519 XR CHEST PORTABLE Final result Impression: IMPRESSION: Cardiomegaly and congestive failure. Referred By: JANE ECHEVARRIA Interpreted By: Kris Woods MD, 12/09/2023 1:22 AM 12/08/23 1455 USE ECHOCARDIOGRAM W CON Final result Part of the above documentation contains notes copied forward from prior notes, all data reconfirmed and physical examination performed, plans were reconfirmed and new orders entered as needed on theday of this service 12/09/23 Assessment ASSESSMENT AND PLAN CHF exacerbation ([facility]) Acute exacerbation of chronic diastolic congestive heart failure. Continue to optimize afterload reducing agents. Continue he has been on high-dose beta- francesca tolerating. Continue diuretic. Added SGLT2 inhibitor. Add MRA agent. Follow laboratory data. Gave additional instructions on 2 g sodium diet. Essential hypertension Blood pressure is controlled. He has been on high-dose beta-francesca. Continue. If additional antihypertensives are needed, add DELICIA inhibitor. Hyperlipidemia Continue statin therapy. Coronary artery disease Known coronary disease previously known occluded right coronary has no ongoing angina. LV systolic function is preserved. Continue aspirin statin and beta- francesca therapy. - * Carlos Sheth MD - 12/09/2023 1:55 PM CDTAssociated Problem(s): Coronary artery disease Known coronary disease previously known occluded right coronary has no ongoing angina. LV systolic function is preserved. Continue aspirin statin and beta- francesca therapy. * Carlos Sheth MD - 12/09/2023 1:54 PM CDTAssociated Problem(s): Hyperlipidemia Continue statin therapy. * Carlos Sheth MD - 12/09/2023 1:54 PM CDTAssociated Problem(s): Essential hypertension Blood pressure is controlled. He has been on high-dose beta-francesca. Continue. If additional antihypertensives are needed, add DELICIA inhibitor. * Carlos Sheth MD - 12/09/2023 1:52 PM CDTAssociated Problem(s): CHF exacerbation ([facility]) Acute exacerbation of chronic diastolic congestive heart failure. Continue to optimize afterload reducing agents. Continue he has been on high-dose beta- francesca tolerating. Continue diuretic. Added SGLT2 inhibitor. Add MRA agent. Follow laboratory data. Gave additional instructions on 2 g sodium diet. * Maninder Arenas - 12/09/2023 1:00 PM CDT Patient assessed for emotional/spiritual needs and well-being, Patient's Disposition/People present: patient alert / patient alone Patient's support system: family Roman Catholic Affiliation/Spiritual Background: None Vivian community: None Interventions: Spiritual Care facilitated patient in attaining their spiritual goals by: Spiritual: Providing listening Offering prayer/blessing Emotional: Demonstrating acceptance of patient Offering emotional support to patient Follow up Needed: As need. * Jemma CanoD, [facility] - 12/09/2023 12:22 PM CDT Pharmacy Clinical Services: New Start Sodium-Glucose Co Transporter 2 Inhibitor (SGLT2) Drug: Jardiance Dose: 10 mg Indication: CHF Patient's profile has been reviewed for initiation of Jardiance per the consult request entered by Meryl. Any concerns have been communicated with the ordering provider. Provider has discussed the risks and benefits with the patient. [facility] Inpatient Pharmacy has phoned in 30-day supply prescription with the information above to [facility] for inpatient use. Med will be billed to patient's prescription drug insurance if applicable. If a coupon card is used, a 30-day supply of the medication will be provided. No refills. Patient will be started on the hospital supply of empagliflozin per [facility] Formulary prior to receiving their own supply from [facility]. Once the medication is filled, the medication will be delivered to the inpatient pharmacy for ordering box operator and home medication processing. Patient's own supply of medication will then be utilized for the duration of the patient's hospital stay. Thank you, Sangeetha Alves PharmD, [facility] Phone: [phone] 12:22 PM * Alex Lozano RN - 12/09/2023 11:38 AM CDT The keno writer provided CM role and pt in agreement to an assessment. Patient resides in: [place], [place], with spouse April Support person/point of contact: April Insurance: Abdoulaye Work history/status: retired PCP: Ti Zamora MD Preferred RX: [facility] COVID vaccination status: not vaccinated Baseline function with ADLs: independent DME: none Current [facility], [place], interim services: none Mental Health, Drugs/ETOH use: Safety, abuse, neglect, financial concerns: HCPOA: yes Goals/anticipated d/c plan: Home. CM will provide d/c planning as needed and will re-evaluate basedon recommendation, treatment course, pt expressed preference. Ride at d/c: April 12/09/23 1137 Referral Data Source of Information Patient Patient Information Primary Caregiver Self;Spouse/Significant Other Current living Situation Spouse/significant other Type of Residence Private residence Support System Spouse/Significant Other Are you employed? Retired Baseline ADL's Functional Status Independent Behavior Oriented;Cooperative Communication Talks;Understands speaking;Understands Lebanese Psychosocial Need Indicator Mental health concerns No Diagnosis/prognosis resulting in poor adjustment or coping with illness No Diagnosis/prognosis with anticipated outcome of major lifestyle changes, including change in residential living environment No Complex Family concerns No Abuse and/or neglect of elder, adult or child No Psychiatric and/or substance abuse issues affecting current hospitalization No Homelessness with lack of safe discharge environment No Need for guardianship petition No Involuntary patient No DC screening tool This is a screening tool it does not take the place of a physical or occupational therapy evaluation. The screening is to screen the patient for what services and destination would be beneficial for patient for next level of care Conversation with the patient/family Based on the screening the DC plan for consideration is: Patient expects to be discharged to: Home or Self care no new needs Adequate Resources Available Adequate Resources Yes [place] Only - Criminal Background check [place] only - Is patient going to alf? No * Estefania Zavaleta RN - 12/09/2023 8:56 AM CDT Attempted call to patient's room for remote CM assessment, someone picked phone up then hung up. Attempted call to patient's for remote CM assessment, no answer at this time. * Nicki Marte RN - 12/08/2023 11:34 PM CDT Problem: Discharge Planning Goal: Knowledge of discharge plan Outcome: Progressing Problem: Activity Intolerance Goal: Improved activity tolerance Outcome: Progressing Problem: Anxiety Goal: Alleviation of anxiety Outcome: Progressing Problem: Pain - Acute Goal: Achieve acceptable pain level Outcome: Progressing Problem: Venous Thromboembolism - Risk of Goal: Absence of venous thromboembolism Outcome: Progressing * Deana Curry MD - 12/08/2023 9:59 AM CDT 63 Male, PMH DM, Afib s/p ablation by Dr Yin on 12/04. Presented to [facility] ED with worsening SOB. CXR showed pulm edema. CTA negative for PE, positive for pulm edema. BNP 391. Troponin elevated. Dr Shepard contacted. Troponin likely up 2/2 recent ablation. He recommends transfer to [facility] for CHF exacerbation. Patient is on RA. BP 158/77. EKG NSR. Received lasix [address] Heri Mckeon made aware.He will consult on arrival documented in this encounter H&P Notes * ROBERT Archuleta-ANDERSON - 12/08/2023 1:57 PM CDT Images from the original note were not included. [facility] Hospitalist H&P Note Attending Provider: Willem Lora MD PCP: TI ZAMORA MD Reason for Admission: CHF exacerbation ([facility]) Assessment/Plan: Elza Mckeon is an 63-year-old male with a past medical history of diabetes mellitus type 2,atrial fibrillation/flutter status post multiple ablations on Eliquis, COPD, CAD status post stent,heart failure with reduced ejection fraction, hyperlipidemia, obstructive sleep apnea on CPAP, and h ypertension. He was transferred from outside facility with acute on chronic heart failure with reduced ejection fraction. Acute on chronic heart failure with reduced ejection fraction Nonischemic cardiomyopathy Acute respiratory failure with hypoxia -Echocardiogram from February 2023 demonstrates an ejection fraction of 40 to 45% with diastolic dysfunction. -CTA showed no PE, bilateral lung disease right greater than left which could represent pulmonary edema, aspiration, or pneumonia, and cardiomegaly. -Suspect lung disease is likely pulmonary edema. Will get procalcitonin. Will hold off on antibiotics. -O2 sats were 69% on room air prior to transfer -IV Lasix 40 mg twice daily with potassium supplementation -Continue beta-francesca and DELICIA inhibitor. -Monitor strict intake and output with daily weights. -Obtain echocardiogram to reassess his left ventricular and valvular function. -Dr. Mckeon on board. -Continue oxygen maintain saturations greater than 89%. Elevated troponin Coronary artery disease Hypertension Hyperlipidemia -Mildly elevated troponin at 233, likely secondary to his recent ablation. -Continue to trend troponin. -Continue aspirin, beta-francesca, and statin. -Monitor telemetry. -Obtain echocardiogram. Atrial fibrillation/flutter -Patient underwent catheter ablation with roof dependent left atrial appendage micro reentrant tachycardia ablation, right superior pulmonary vein and left atrial posterior wall ablation. -EKG shows sinus rhythm. -Continue apixaban for thromboembolic prophylaxis. -Continue beta-francesca for rate control. -Dr. Yin on board. Hypomagnesemia -Replaced prior to transfer. -Repeat magnesium level -Monitor telemetry. Obstructive sleep apnea -Continue CPAP at night. Body mass index is 43.43 kg/m??. DVT prophylaxis: Apixaban Code status: Full Code I spent a total of 40 minutes [id number] with the patient, reviewing the patient's chart, clinical decision making, and documentation of patient's care. LEONELA FARIAS, [facility]- 12/08/2023 HPI: Elza Mckeon is an 63-year-old male with a past medical history of diabetes mellitus type 2,atrial fibrillation/flutter status post multiple ablations on Eliquis, COPD, CAD status post stent,heart failure with reduced ejection fraction, hyperlipidemia, obstructive sleep apnea on CPAP, and h ypertension. He was transferred from outside facility with acute on chronic heart failure with reduced ejection fraction. Patient had a flutter ablation with Dr. Yin on 12/04. He states he began to feel short of breath yesterday and his symptoms worsened overnight. He reports significant orthopnea and dyspnea on exertion. He had some chest discomfort this morning when his SOB was severe that has resolved. He denies any weight gain or lower extremity swelling. He does feel dizzy. No fever, chills, or sweats. He denies any abdominal pain, vomiting, diarrhea, black or bloody stools. He has been nauseated. He denies dysuria or urinary frequency. No cough, sore throat, nasal congestion. He denies any weakness but feels fatigued. Labs are notable for hemoglobin of 11.8, white blood count 10.9, bicarb 33, BUN 17, creatinine 1.13, glucose 126, magnesium 1.7, proBNP 391, troponin 233.9, D- dimer 0.52. ABG showed a pH of 7.41, pCO2 46.1, bicarb 28.4. EKG showed sinus rhythm with nonspecific ST-T wave abnormalities. CTA was negative for PE and showed bilateral lung disease right greater than left which could represent pulmonary edema, aspiration, or pneumonia. Cardiomegaly. Patient received 40 mg of IV Lasix, Solu-Medrol, DuoNeb, and magnesium prior to transfer. Review of System: Review of Systems Constitutional: Positive for malaise/fatigue. Negative for chills, fever and weight loss. HENT: Negative for congestion, hearing loss and sore throat. Eyes: Negative for blurred vision and double vision. Respiratory: Positive for shortness of breath. Negative for cough and hemoptysis. Cardiovascular: Positive for chest pain and orthopnea. Negative for palpitations, claudication, legswelling and PND. Gastrointestinal: Positive for nausea. Negative for abdominal pain, blood in stool, constipation, diarrhea, melena and vomiting. Genitourinary: Negative for dysuria, flank pain, frequency, hematuria and urgency. Musculoskeletal: Negative for falls and myalgias. Skin: Negative for rash. Neurological: Positive for dizziness. Negative for tingling, weakness and headaches. Endo/Heme/Allergies: Does not bruise/bleed easily. Physical exam: Blood pressure (!) 144/87, pulse 80, temperature 98.3 ??F (36.8 ??C), temperature source Oral, resp. rate 20, height 1.778 m (5' 10 ), SpO2 99%. Physical Exam Constitutional: General: He is not in acute distress. Appearance: He is well-developed. He is ill-appearing. He is not diaphoretic. HENT: Head: Normocephalic and atraumatic. Eyes: Conjunctiva/sclera: Conjunctivae normal. Pupils: Pupils are equal, round, and reactive to light. Neck: Vascular: No JVD. Cardiovascular: Rate and Rhythm: Normal rate and regular rhythm. Heart sounds: Murmur heard. Systolic murmur is present with a grade of 1/6. Pulmonary: Effort: Pulmonary effort is normal. Breath sounds: No stridor. Rales (scattered bilaterally) present. Abdominal: General: Bowel sounds are normal. There is no distension. Palpations: Abdomen is soft. There is no mass. Tenderness: There is no abdominal tenderness. There is no guarding or rebound. Musculoskeletal: General: Normal range of motion. Cervical back: Normal range of motion and neck supple. Right lower le+ Pitting Edema present. Left lower le+ Pitting Edema present. Skin: General: Skin is warm and dry. Coloration: Skin is pale. Neurological: General: No focal deficit present. Mental Status: He is alert and oriented to person, place, and time. Cranial Nerves: No cranial nerve deficit. Psychiatric: Behavior: Behavior normal. Past Medical History: Diagnosis Date Abnormal stress test Arthritis 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 Coronary artery disease Diabetes ([facility]) 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, limited to breakdown of skin ([facility] HHS/HCC) Fatigue GERD (gastroesophageal reflux disease) Headache Hyperlipidemia Hypertension has had elevated B/P readings Kidney stone SARAI on CPAP Paroxysmal atrial fibrillation ([facility]/HCC) PONV (postoperative nausea and vomiting) Social History Tobacco Use Smoking status: Never Smokeless tobacco: Never Substance Use Topics Alcohol use: Yes Comment: social Past Surgical History: Procedure Laterality Date CARDIAC CATHETERIZATION 01/04/2018 occluded prox RCA w/well developed [id number] collaterals lvef 55-60% CARDIAC CATHETERIZATION 11/13/2018 FRACTURE SURGERY HC TOTAL KNEE REVISION Right 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 HERNIA REPAIR JOINT REPLACEMENT KNEE ARTHROPLASTY Bilateral LITHOTRIPSY XA ABLATION 05/19/2016 XA 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 Current Outpatient Medications on File Prior to Encounter Medication Sig amitriptyline 100 MG tablet Take 1 tablet (100 mg total) by mouth nightly at bedtime. aspirin 81 MG chewable tablet Chew 1 tablet (81 mg total) by mouth daily. atorvastatin 40 MG tablet Take 0.5 tablets (20 mg total) by mouth nightly at bedtime. BASAGLAR KWIKPEN 100 UNIT/ML injection (PEN) Inject 50 Units into the skin nightly at bedtime. Continuous Glucose Pharmacy Data Analyst (FREESTYLE LI 3 READER) Device Inject 1 Device into the skin as needed (DM). Continuous Glucose Sensor (FREESTYLE LI 3 SENSOR) Misc Inject 1 Device into the skin as needed. Continuous Glucose Transmitter (DEXCOM G6 TRANSMITTER) Misc Inject 1 Device into the skin as needed(DM). ELIQUIS 5 MG tablet Take 1 tablet (5 mg total) by mouth 2 (two) times daily. famotidine 40 MG tablet Take 1 tablet (40 mg total) by mouth 2 (two) times daily. furosemide (LASIX) 40 MG tablet take one tablet by mouth twice a day gabapentin (NEURONTIN) 400 MG capsule Take 1 capsule (400 mg total) by mouth 3 (three) times daily. LEVEMIR FLEXPEN 100 UNIT/ML PEN Inject 50 Units into the skin 3 (three) times daily. lisinopril (PRINIVIL) 10 MG tablet Take 1 tablet (10 mg total) by mouth daily. metFORMIN 850 MG tablet Take 1 tablet (850 mg total) by mouth 3 (three) times daily. metoprolol succinate ER (TOPROL-XL) 200 MG 24 hr tablet take one tablet by mouth twice a day nitroglycerin 0.[address] 1 tablet (0.4 mg total) under the tongue every 5 (five) minutes as needed for Chest Pain. NOVOLOG FLEXPEN 100 UNIT/ML injection (PEN) Inject 50 Units as directed 3 (three) times daily before meals. OZEMPIC, 0.25 OR 0.5 MG/DOSE, 2 MG/3ML injection (PEN) Inject 0.25 mg into the skin every 7 days. Every sat potassium chloride CR (KLOR-CON M) 20 MEQ tablet take one tablet by mouth daily tamsulosin 0.4 MG Cap Take 1 capsule (0.4 mg total) by mouth daily. traMADol 50 MG tablet Take 1 tablet (50 mg total) by mouth 3 (three) times a day. TRUEPLUS PEN NEEDLES 31G X 8 MM Misc Allergies: Allergies Allergen Reactions Tetracyclines & Related Other (see comment) Blisters in the mouth Doxycycline Other (see comment) and Rash Blisters in the mouth Laboratory data and imaging: Results for orders placed or performed during the hospital encounter of 12/05/23 POCT glucose Result Value Ref Range GLUCOSE POC 93 70 - 109 POCT glucose Result Value Ref Range GLUCOSE POC 63 (L) 70 - 109 POCT ACTIVATED CLOTTING TIME - ISTAT DOCKED DEVICE Result Value Ref Range ACTIVATED CLOTTING TIME (ACT HMT OR LMT) 287 (H) 74 - 137 SEC POCT ACTIVATED CLOTTING TIME - ISTAT DOCKED DEVICE Result Value Ref Range ACTIVATED CLOTTING TIME (ACT HMT OR LMT) 287 (H) 74 - 137 SEC No results for input(s): TROP , TROPIWB in the last 168 hours. No results found for this visit on 12/08/23. USE ECHOCARDIOGRAM (Results Pending) Cosigned by Willem Lora MD at 12/08/2023 3:37 PM CDT Associated attestation - Willem Lora MD - 12/08/2023 3:37 PM CDT A&P: Acute on chronic heart failure with reduced ejection fraction Nonischemic cardiomyopathy Acute respiratory failure with hypoxia -Echocardiogram from February 2023 demonstrates an ejection fraction of 40 to 45% with diastolic dysfunction. -CTA showed no PE, bilateral lung disease right greater than left which could represent pulmonary edema, aspiration, or pneumonia, and cardiomegaly. -Suspect lung disease is likely pulmonary edema. Will get procalcitonin. Will hold off on antibiotics. -O2 sats were 69% on room air prior to transfer -IV Lasix 40 mg twice daily with potassium supplementation -Continue beta-francesca and DELICIA inhibitor. -Monitor strict intake and output with daily weights. -Obtain echocardiogram to reassess his left ventricular and valvular function. -Dr. Mckeon on board. -Continue oxygen maintain saturations greater than 89%. Elevated troponin Coronary artery disease Hypertension Hyperlipidemia -Mildly elevated troponin at 233, likely secondary to his recent ablation. -Continue to trend troponin. -Continue aspirin, beta-francesca, and statin. -Monitor telemetry. -Obtain echocardiogram. Atrial fibrillation/flutter -Patient underwent catheter ablation with roof dependent left atrial appendage micro reentrant tachycardia ablation, right superior pulmonary vein and left atrial posterior wall ablation. -EKG shows sinus rhythm. -Continue apixaban for thromboembolic prophylaxis. -Continue beta-francesca for rate control. -Dr. Yin on board. Hypomagnesemia -Replaced prior to transfer. -Repeat magnesium level -Monitor telemetry. Obstructive sleep apnea -Continue CPAP at night. I, WILLEM LORA MD, participated in the care of this patient today and discussed the plan of care with GERRI Macias, who shared in this visit. I have reviewed the GERRI's documentation and agree with the findings except as I have documented. I personally spent 41 minutes, caring for this patient. WILLEM LORA MD documented in this encounter Consult Notes * Carlos Sheth MD - 12/08/2023 1:55 PM CDTAssociated Order(s): IP CONSULT TO CARDIOLOGY Images from the original note were not included. Patient Name: Elza Mckeon : 1960 PCP: TI ZAMORA MD Primary Substance Abuse Nurse: Previously Dr. Allan (follows with Gayle Arce NP); Dr. Sheth consulted Reason for Consultation: CHF ASSESSMENT/PLAN: 1. Acute on chronic systolic congestive heart failure (LVEF 40 to 45%) -Continue diuresis with close monitoring of renal function electrolytes. Daily weights, accurate intake and output. -Resume metoprolol succinate. Stop lisinopril and start losartan with plans to switch to Entresto after 36-hour washout period from last dose of lisinopril. Start SGLT2 inhibitor. Will attempt to addAldactone as well -Obtain echocardiogram to reassess left ventricular valvular function and guide ongoing recommendations. 2. Paroxysmal atrial fibrillation and recurrent atypical atrial flutter status post multiple ablations with most recent ablation 12/05/2023 -Electrophysiology has been consulted. On apixaban. Continue beta-francesca. Continue telemetry monitoring. EKG showed sinus rhythm. 3. Elevated troponin with history of coronary artery disease status post PCI -Denies anginal type chest discomfort. Continue to trend troponin. Suspect troponin elevation is secondary to acute on chronic CHF and recent ablation. Not consistent with ACS. Continue aspirin, atorvastatin and beta-francesca. Echocardiogram as above. Recent nuclear stress testing February 2023 was n egative for ischemia. HPI: This is a 63-year-old male with a past medical history of paroxysmal atrial fibrillation and recurrent atypical atrial flutter status post multiple ablations, coronary artery disease status postPCI, systolic congestive heart failure, hypertension, SARAI on CPAP, hyperlipidemia, diabetes presented to [facility] with complaints of worsening dyspnea. Patient recently underwent elective atrial flutter ablation on 12/05/2023. He had complaints of exertional dyspnea on 12/02/2023 when he was seen in in outpatient electrophysiology clinic for preoperative evaluation. Patient states that since discharge she has been experiencing worsening exertional dyspnea which progressed to dyspnea at rest. He denies orthopnea, PND or significant weight gain. He denies worsening lower extremity edema. He denies abdominal distention. He is compliant with his diuretic therapy. He presented [facility] for further evaluation. On initial evaluation [facility] he was hypoxic requiring supplemental oxygen via nasal cannula. Laboratory analysis revealed proBNP 391, troponin 233, creatinine 1.13, EKG showed sinus rhythmwith nonspecific ST-T wave abnormalities. CTA chest was negative for PE and showed bilateral lung disease right greater than left which could represent pulmonary edema, aspiration or pneumonia and cardiomegaly. He was given IV Lasix, Solu-Medrol, nebulizer treatment magnesium and transferred to [facility] for further evaluation. Cardiology consultation was requested for further evaluation management of acute on chronic systolic congestive heart failure. Recent cardiovascular studies: XA AFLUTTER ABLATION 12/05/23 MCT 09/08/23 SUMMARY: 1. Atrial flutter persisted throughout the monitored period and was associated with well-controlledventricular response. 2. Symptoms correlated with atrial flutter at 80-100 bpm. TTE 02/24/23 Nuclear stress test 02/25/23 Past Medical History: Diagnosis Date Abnormal stress test Arthritis 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 Coronary artery disease Diabetes ([facility]/HCC) 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, limited to breakdown of skin ([facility] HHS/HCC) Fatigue GERD (gastroesophageal reflux disease) Headache Hyperlipidemia Hypertension has had elevated B/P readings Kidney stone SARAI on CPAP Paroxysmal atrial fibrillation ([facility] HHS/HCC) PONV (postoperative nausea and vomiting) Past Surgical History: Procedure Laterality Date CARDIAC CATHETERIZATION 01/04/2018 occluded prox RCA w/well developed [id number] collaterals lvef 55-60% CARDIAC CATHETERIZATION 11/13/2018 FRACTURE SURGERY HC TOTAL KNEE REVISION Right 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 aspirin 81 MG chewable tablet Chew 1 tablet (81 mg total) by mouth daily. atorvastatin 40 MG tablet Take 0.5 tablets (20 mg total) by mouth nightly at bedtime. BASAGLAR KWIKPEN 100 UNIT/ML injection (PEN) Inject 50 Units into the skin nightly at bedtime. Continuous Glucose Pharmacy Data Analyst (FREESTYLE LI 3 READER) Device Inject 1 Device into the skin as needed (DM). Continuous Glucose Sensor (FREESTYLE LI 3 SENSOR) Misc Inject 1 Device into the skin as needed. Continuous Glucose Transmitter (DEXCOM G6 TRANSMITTER) Misc Inject 1 Device into the skin as needed(DM). ELIQUIS 5 MG tablet Take 1 tablet (5 mg total) by mouth 2 (two) times daily. famotidine 40 MG tablet Take 1 tablet (40 mg total) by mouth 2 (two) times daily. furosemide (LASIX) 40 MG tablet take one tablet by mouth twice a day 120 tablet 0 gabapentin (NEURONTIN) 400 MG capsule Take 1 capsule (400 mg total) by mouth 3 (three) times daily. LEVEMIR FLEXPEN 100 UNIT/ML PEN Inject 50 Units into the skin 3 (three) times daily. lisinopril (PRINIVIL) 10 MG tablet Take 1 tablet (10 mg total) by mouth daily. metFORMIN 850 MG tablet Take 1 tablet (850 mg total) by mouth 3 (three) times daily. metoprolol succinate ER (TOPROL-XL) 200 MG 24 hr tablet take one tablet by mouth twice a day 180 tablet 0 nitroglycerin 0.[address] 1 tablet (0.4 mg total) under the tongue every 5 (five) minutes as needed for Chest Pain. 25 tablet 1 NOVOLOG FLEXPEN 100 UNIT/ML injection (PEN) Inject 50 Units as directed 3 (three) times daily before meals. OZEMPIC, 0.25 OR 0.5 MG/DOSE, 2 MG/3ML injection (PEN) Inject 0.25 mg into the skin every 7 days. Every sat potassium chloride CR (KLOR-CON M) 20 MEQ tablet take one tablet by mouth daily 30 tablet 4 tamsulosin 0.4 MG Cap Take 1 capsule (0.4 mg total) by mouth daily. traMADol 50 MG tablet Take 1 tablet (50 mg total) by mouth 3 (three) times a day. TRUEPLUS PEN NEEDLES 31G X 8 MM Misc Allergies Allergen Reactions Tetracyclines & Related Other (see comment) Blisters in the mouth Doxycycline Other (see comment) and Rash Blisters in the mouth Social History Tobacco Use Smoking status: Never Smokeless tobacco: Never Substance Use Topics Alcohol use: Yes Comment: social Family History Problem Relation Name Age of Onset Hypertension Mother Hypertension Sister Cancer Brother Diabetes Brother Other (PVD) Brother Hypertension Sister No Known Problems Father No Known Problems Paternal Grandfather No Known Problems Paternal Grandmother No Known Problems Maternal Grandfather No Known Problems Maternal Grandmother Review of Systems Constitutional: Negative for recent unintentional weight gain, recent unintentional weight loss andnew or significant fatigue. HENT: Negative for new or significant hearing loss. Eyes: Negative for blurred vision. Respiratory: Positive for shortness of breath. Negative for cough. Cardiovascular: See HPI. Gastrointestinal: Negative for nausea, vomiting, blood in stool and melena. Genitourinary: Negative for dysuria. Musculoskeletal: Negative for myalgias and new or worsening joint stiffness/pain. Skin: Negative for rash. Neurological: Negative for dizziness and focal weakness. Endo/Heme/Allergies: Negative for new or significant bruising/bleeding. Psychiatric/Behavioral: Negative for nervous/anxious and new or significant memory loss. Medications: Scheduled Meds: Continuous Infusions: PRN Meds: Meds Prior to Admission: Medications Prior to Admission Medication Sig Dispense Refill amitriptyline 100 MG tablet Take 1 tablet (100 mg total) by mouth nightly at bedtime. aspirin 81 MG chewable tablet Chew 1 tablet (81 mg total) by mouth daily. atorvastatin 40 MG tablet Take 0.5 tablets (20 mg total) by mouth nightly at bedtime. BASAGLAR KWIKPEN 100 UNIT/ML injection (PEN) Inject 50 Units into the skin nightly at bedtime. Continuous Glucose Pharmacy Data Analyst (FREESTYLE LI 3 READER) Device Inject 1 Device into the skin as needed (DM). Continuous Glucose Sensor (FREESTYLE LI 3 SENSOR) Misc Inject 1 Device into the skin as needed. Continuous Glucose Transmitter (DEXCOM G6 TRANSMITTER) Misc Inject 1 Device into the skin as needed(DM). ELIQUIS 5 MG tablet Take 1 tablet (5 mg total) by mouth 2 (two) times daily. famotidine 40 MG tablet Take 1 tablet (40 mg total) by mouth 2 (two) times daily. furosemide (LASIX) 40 MG tablet take one tablet by mouth twice a day 120 tablet 0 gabapentin (NEURONTIN) 400 MG capsule Take 1 capsule (400 mg total) by mouth 3 (three) times daily. LEVEMIR FLEXPEN 100 UNIT/ML PEN Inject 50 Units into the skin 3 (three) times daily. lisinopril (PRINIVIL) 10 MG tablet Take 1 tablet (10 mg total) by mouth daily. metFORMIN 850 MG tablet Take 1 tablet (850 mg total) by mouth 3 (three) times daily. metoprolol succinate ER (TOPROL-XL) 200 MG 24 hr tablet take one tablet by mouth twice a day 180 tablet 0 nitroglycerin 0.[address] 1 tablet (0.4 mg total) under the tongue every 5 (five) minutes as needed for Chest Pain. 25 tablet 1 NOVOLOG FLEXPEN 100 UNIT/ML injection (PEN) Inject 50 Units as directed 3 (three) times daily before meals. OZEMPIC, 0.25 OR 0.5 MG/DOSE, 2 MG/3ML injection (PEN) Inject 0.25 mg into the skin every 7 days. Every sat potassium chloride CR (KLOR-CON M) 20 MEQ tablet take one tablet by mouth daily 30 tablet 4 tamsulosin 0.4 MG Cap Take 1 capsule (0.4 mg total) by mouth daily. traMADol 50 MG tablet Take 1 tablet (50 mg total) by mouth 3 (three) times a day. TRUEPLUS PEN NEEDLES 31G X 8 MM [facility] OBJECTIVE There were no vitals filed for this visit. Current BMI: Body mass index is 43.43 kg/m??. Vital signs: Vitals: 12/08/23 1248 BP: (!) 144/87 Pulse: 80 Resp: 20 Temp: 98.3 ??F (36.8 ??C) SpO2: 99% Physical Exam Vitals reviewed. Constitutional: General: He is not in acute distress. HENT: Head: Normocephalic. Mouth/Throat: Mouth: Mucous membranes are moist. Eyes: Conjunctiva/sclera: Conjunctivae normal. Cardiovascular: Rate and Rhythm: Normal rate and regular rhythm. Heart sounds: No murmur heard. Pulmonary: Effort: Pulmonary effort is normal. Breath sounds: Rales present. Abdominal: General: Bowel sounds are normal. There is distension. Palpations: Abdomen is soft. Musculoskeletal: Cervical back: Neck supple. Right lower leg: No edema. Left lower leg: No edema. Skin: General: Skin is warm and dry. Neurological: General: No focal deficit present. Mental Status: He is alert. Psychiatric: Behavior: Behavior normal. Thought Content: Thought content normal. Labs and Cultures: Lab Results Component Value Date NA 138 12/02/2023 K 4.7 12/02/2023 CL 102 12/02/2023 CO2 31.5 12/02/2023 BUN 22 (H) 12/02/2023 CR 1.21 12/02/2023 GFRNON 64 (L) 06/02/2021 GFR 74 (L) 06/02/2021 GLU 70 (L) 12/02/2023 CA 9.9 12/02/2023 Lab Results Component Value Date WBC 8.90 12/02/2023 HGB 12.6 (L) 12/02/2023 PLT 276 12/02/2023 INR 1.0 10/15/2022 Lab Results Component Value Date ALB 3.5 12/02/2023 AST 28 12/02/2023 ALT 41 12/02/2023 HGBA1C 7.5 (H) 02/24/2023 Imaging: ECG 12 lead Result Date: 12/06/2023 [address] [place] [address] Test Date: 2023-12-05 Pat Name: [facility] Department: 1 Room: [address] 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: Lauro : 1960 Requested By: MARKELL YIN Order Number: [id number] Reading MD: Kyle Mckeon Measurements Intervals [place] Rate: 85 P: [place]: 0 QRS: 60 QRSD: 141 T: 31 QT: 407 QTc: 487 Interpretive Statements ATRIAL FIBRILLATION RIGHT BUNDLE BRANCH BLOCK [120+ ms QRS DURATION, UPRIGHT V1, 40+ ms S IN I/aVL/V4/V5/V6] ECG 12 lead - Today Result Date: 12/05/2023 [address] [place] [address] Test Date: 2023-12-05 Pat Name: [facility] Department: 1 Room: [address] 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: : 1960 Requested By: MARKELL YIN Order Number: [id number] Reading : Leonid Khan Measurements Intervals [place] Rate: 96 P: 75 [place]: 237 QRS: 58 QRSD: 109 T: 18 QT: 345 QTc: 437 Interpretive Statements SINUS RHYTHM WITH MARKED SINUS ARRHYTHMIA WITH FIRST DEGREE AV BLOCK LOW QRS VOLTAGE IN PRECORDIAL LEADS [QRS DEFLECTION < 1.0 mV IN CHEST LEADS] INCOMPLETE RIGHT BUNDLE BRANCH BLOCK [90+ ms QRS DURATION, TERMINAL R IN V1/V2, 40+ ms S IN I/aVL/V4/V5/V6] ELECTROCARDIOGRAM Result Date: 12/02/2023 [facility], [facility] [address] [place] [address] Test Date:2023-12-02 Pat Name: [facility] Department: 105 Room: 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 IJodie MD, [facility], have independently performed history and physical exam and decision making of the patient on the date of service. I have discussed the management with advanced practiceprovider Fernie Garcia APRN. I reviewed the note which was scribed under my supervision, agree with findings, plan of care and have made necessary amendments. I have provided more than half of the o f the total time dedicated to treatment of this patient. I spent 60 minutes today in direct patient care, reviewing the patient's medical record, obtaining history, performing an exam, counseling and educating the patient/family/caregiver, reviewing and communicating test results, documenting in the medical record, referring and/or communicating with other health care providers and coordination of care. documented in this encounter Plan of Treatment Upcoming Encounters Date Type Department Care Team (Late st Contact Info) Description 04/25/2024 11:00 AM SPANNER OPERATOR Appointment [facility] [address] [place] [address] Ti Zamora MD [address] [place] [phone] 05/23/2024 3:30 PM SPANNER OPERATOR Office Visit [facility] [place] [address] Jyoti Escobar MD [address] [place] [phone] documented as of this encounter Goals Goal Patient Goal Type Associated Problems Recent Progress Patient-Stated? Author Safety ? Patient/family will have appropriate support at home upon discharge Lifestyle No Alex Lozano, cager operator - family caregiver with be involved in care transitions and discharge planning Lifestyle No Alex Lozano, RN Patient will return to prior living situation and remain independent in ADLs upon discharge from hospital Lifestyle No Alex Lozano, RN documented as of this encounter Procedures Procedure Name Priority Date/Time Associated Diagnosis Comments HOME O2 EVAL Routine 12/11/2023 12:22 PM CDT POCT GLUCOSE - RAMOS DOCKED DEVICE Routine 12/11/2023 11:25 AM CDT POCT GLUCOSE - RAMOS DOCKED DEVICE Routine 12/11/2023 5:40 AM CDT BASIC METABOLIC PANEL Routine 12/11/2023 4:44 AM CDT POCT GLUCOSE - RAMOS DOCKED DEVICE Routine 12/10/2023 8:55 PM CDT POCT GLUCOSE - RAMOS DOCKED DEVICE Routine 12/10/2023 4:28 PM CDT POCT GLUCOSE - RAMOS DOCKED DEVICE Routine 12/10/2023 11:13 AM CDT COMPREHENSIVE METABOLIC PANEL Routine 12/10/2023 7:06 AM CDT CBC W/DIFF AUTOMATED Routine 12/10/2023 7:06 AM CDT MAGNESIUM Routine 12/10/2023 7:06 AM CDT POCT GLUCOSE - RAMOS DOCKED DEVICE Routine 12/10/2023 6:27 AM CDT POCT GLUCOSE - RAMOS DOCKED DEVICE Routine 12/09/2023 9:12 PM CDT POCT GLUCOSE - RAMOS DOCKED DEVICE Routine 12/09/2023 3:25 PM CDT POCT GLUCOSE - RAMOS DOCKED DEVICE Routine 12/09/2023 12:06 PM CDT POCT GLUCOSE - RAMOS DOCKED DEVICE Routine 12/09/2023 6:00 AM CDT BASIC METABOLIC PANEL Routine 12/09/2023 4:40 AM CDT CBC W/DIFF AUTOMATED Routine 12/09/2023 4:40 AM CDT POCT GLUCOSE - RAMOS DOCKED DEVICE Routine 12/08/2023 8:50 PM CDT TROPONIN, QUANT TIMED 12/08/2023 7:39 PM CDT POCT GLUCOSE - RAMOS DOCKED DEVICE Routine 12/08/2023 4:23 PM CDT XR CHEST PORTABLE Today 12/08/2023 3:1 9 PM CDT USE ECHOCARDIOGRAM W CON Today 12/08/2023 2:55 PM CDT PROCALCITONIN (PCT) STAT 12/08/2023 2 :22 PM CDT PRO-BRAIN NATRIURETIC PEPTIDE STAT 12/08/2023 2:22 PM CDT HEMOGLOBIN, GLYCOSYLATED STAT 12/08/2023 2:22 PM CDT PROTHROMBIN TIME, VENOUS STAT 12/08/2023 2:22 PM CDT COMPREHENSIVE METABOLIC PANEL STAT 12/08/2023 2:22 PM CDT CBC W/DIFF AUTOMATED STAT 12/08/2023 2:22 PM CDT TROPONIN, QUANT TIMED 12/08/2023 2:22 PM CDT MAGNESIUM STAT 12/08/2023 2:22 PM CDT ECG 12-LEAD Routine 12/08/2023 2:12 PM CDT documented in this encounter Results * (ABNORMAL) POCT glucose (12/11/2023 11:25 AM CDT) GLUCOSE POC 135(H) 70 - 109 12/11/2023 11:32 AM CDT [facility] 12/11/2023 11:2 5 AM CDT us Willem Lora MD POCT ORDERABLES - DEVICE Final R esult Performing Organization Address City/[facility] Co de Phone Number [facility] [address] [place] [address], [phone] * POCT glucose (12/11/2023 5:40 AM CDT) GLUCOSE POC 90 70 - 109 12/11/2023 5:51 AM CDT [facility] 12/11/2023 5:40 AM CDT us Willem Lora MD POCT ORDERABLES - DEVICE Final R esult Performing Organization Address City/[facility]/ZIP Co de Phone Number [facility] [address] [place] [address], [place] [phone] * (ABNORMAL) BASIC METABOLIC PANEL (12/11/2023 4:44 AM CDT) SODIUM S/P/B 137 136 - 145 MMOL/L 12/11/2023 5:53 AM CDT [facility] POTASSIUM S/P/B 3.7 3.5 - 5.1 MMOL/L 12/11/2023 5:53 AM CDT [facility] CHLORIDE S/P/B 101 97 - 115 MMOL/L 12/11/2023 5:53 AM CDT [facility] CO2 33.3(H) 21.0 - 32.0 MMOL/L 12/11/2023 5:53 AM CDT [facility] GLUCOSE 76 74 - 106 MG/DL 12/11/2023 5:53 AM CDT [facility] BUN 32(H) 7 - 18 MG/DL 12/11/2023 5:53 AM CDT [facility] CREATININE S/P/B 1.12 0.70 - 1.30 MG/DL 12/11/2023 5:53 AM CDT [facility] CALCIUM S/P/B 9.6 8.5 - 10.1 MG/DL 12/11/2023 5:53 AM CDT [facility] ANION GAP 2.7 2.0 - 10.0 MMOL/L 12/11/2023 5:53 AM CDT [facility] OSMOLALITY (CALC) 290 MOSM/KG 024 5:53 AM CDT [facility] Comment:REFERENCE RANGE NOT ESTABLISHED GFR ESTIMATE 73(L) >90 ML/MIN/1. 73 M2 12/11/2023 5:53 AM CDT [facility] GFR NOTES GFR REFERENCE S: 12/11/2023 5:53 AM CDT [facility] Comment: THE ESTIMATED GFR IS CALCULATED [...] ml/min/1.73 m2 G5,KIDNEY FAILURE: <15 ml/min/1.73 m2 12/11/2023 4:44 AM CDT us Dior Morales MD LABORATORY Final Result Performing Organization Address City/[facility] Co de Phone Number [facility] [address] [place] [address], [place] [phone] * (ABNORMAL) POCT glucose (12/10/2023 8:55 PM CDT) GLUCOSE POC 131(H) 70 - 109 12/10/2023 8:56 PM CDT [facility] 12/10/2023 8:55 PM CDT us Dior Morales MD POCT ORDERABLES - DEVICE Final R esult Performing Organization Address [facility] de Phone Number [facility] [address] [place] [address], [place] [phone] * POCT glucose (12/10/2023 4:28 PM CDT) GLUCOSE POC 97 70 - 109 12/10/2023 5:01 PM CDT [facility] 12/10/2023 4:28 PM CDT us Dior Morales MD POCT ORDERABLES - DEVICE Final R esult Performing Organization Address [facility] Co de Phone Number [facility] [address] [place] [address], [place] [phone] * (ABNORMAL) POCT glucose (12/10/2023 11:13 AM CDT) GLUCOSE POC 117(H) 70 - 109 12/10/2023 11:56 AM CDT [facility] 12/10/2023 11:1 3 AM CDT us Dior Morales MD POCT ORDERABLES - DEVICE Final R esult Performing Organization Address City/[facility] Co de Phone Number [facility] [address] [place] [address], [place] [phone] * (ABNORMAL) MAGNESIUM (12/10/2023 7:06 AM CDT) Pathologist [facility] MAGNESIUM 2.7(H) 1.6 - 2.6 MG/DL 12/10/2023 7:50 AM CDT [facility] 12/10/2023 7:06 AM CDT Dior Morales MD LABORATORY Final Result Performing Organization Address [facility] de Phone Number [facility] [address] [place] [address], [place] [phone] * (ABNORMAL) COMPREHENSIVE METABOLIC PANEL (12/10/2023 7:06 AM CDT) SODIUM S/P/B 139 136 - 145 MMOL/L 12/10/2023 7:50 AM CDT [facility] POTASSIUM S/P/B 3.8 3.5 - 5.1 MMOL/L 12/10/2023 7:50 AM CDT [facility] CHLORIDE S/P/B 101 97 - 115 MMOL/L 12/10/2023 7:50 AM CDT [facility] CO2 31.7 21.0 - 32.0 MMOL/L 12/10/2023 7:50 AM CDT [facility] GLUCOSE 131(H) 74 - 106 MG/DL 12/10/2023 7:50 AM CDT [facility] BUN 35(H) 7 - 18 MG/DL 12/10/2023 7:50 AM T [facility] CREATININE S/P/B 1.40(H) 0.70 - 1.30 MG/DL 12/10/2023 7:50 AM CDT [facility] CALCIUM S/P/B 10.0 8.5 - 10.1 MG/DL 12/10/2023 7:50 AM CDT [facility] BILIRUBIN TOTAL S/P/B 0.6 0.2 - 1.0 MG/DL 12/10/2023 7:50 AM T [facility] ALKALINE PHOSPHATASE S/P/B 73 45 - 115 U/L 12/10/2023 7:50 AM T [facility] AST 18 15 - 37 U/L 12/10/2023 7:50 AM T [facility] ALT 33 16 - 61 U/L 12/10/2023 7:50 AM T [facility] TOTAL PROTEIN S/P/B 7.3 6.4 - 8.2 G/DL 12/10/2023 7:50 AM [facility] ALBUMIN S/P/B 2.9(L) 3.4 - 5.0 G/DL 12/10/2023 7:50 AM [facility] ANION GAP 6.3 2.0 - 10.0 MMOL/L 12/10/2023 7:50 AM [facility] OSMOLALITY (CALC) 298 MOSM/KG 024 7:50 AM [facility] Comment:REFERENCE RANGE NOT ESTABLISHED GFR ESTIMATE 56(L) >90 ML/MIN/1. 73 M2 12/10/2023 7:50 AM T [facility] GFR NOTES GFR REFERENCE S: 12/10/2023 7:50 AM [facility] Comment: THE ESTIMATED GFR [...] ml/min/1.73 m2 G5,KIDNEY FAILURE: <15 ml/min/1.73 m2 12/10/2023 7:06 AM CDT Dior Morales MD LABORATORY Final Result [facility] [address] [place] [address], [phone] * (ABNORMAL) CBC W/DIFF AUTOMATED (12/10/2023 7:06 AM CDT) WBC 8.94 4.00 - 10.80 x10'3/uL 12/10/2023 7:19 AM CDT [facility] RBC 4.23(L) 4.50 - 6.10 x10'6/uL 12/10/2023 7:19 AM CDT [facility] HGB 11.5(L) 13.0 - 18.0 G/DL 12/10/2023 7:19 AM CDT [facility] HCT 38.3 37.0 - 52.0 % 12/10/2023 7:19 AM CDT [facility] MCV 90.5 78.0 - 100.0 FL 12/10/2023 7:19 AM CDT [facility] MCH 27.2 27.0 - 31.0 PG 12/10/2023 7:19 AM CDT [facility] MCHC 30.0(L) 33.0 - 36.0 G/DL 12/10/2023 7:19 AM CDT [facility] RDW 15.8(H) 11.5 - 14.5 % 12/10/2023 7:19 AM CDT [facility] PLT 266 150 - 350 x10'3/uL 12/10/2023 7:19 AM CDT [facility] MPV 11.0(H) 7.4 - 10.4 FL 12/10/2023 7:19 AM CDT [facility] ABS. NEUTROPHILS 5.10 1.60 - 8.30 x10'3/uL 12/10/2023 7:19 AM CDT [facility] ABS. LYMPHOCYTES 2.50 0.80 - 4.70 x10'3/uL 12/10/2023 7:19 AM CDT [facility] ABS. MONOCYTES 0.99 0.00 - 1.50 x10'3/uL 12/10/2023 7:19 AM CDT [facility] ABS. EOSINOPHILS 0.22 0.00 - 0.40 x10'3/uL 12/10/2023 7:19 AM CDT [facility] ABS. BASOPHILS 0.08 0.00 - 0.20 x10'3/uL 12/10/2023 7:19 AM CDT [facility] ABS. IMMATURE GRANULOCYTES 0.05(H) 0.00 - 0.03 x10'3/uL 12/10/2023 7:19 AM CDT [facility] ABS. NUCLEATED RBC'S 0.00 0.00 - 0.01 x10'3/uL 12/10/2023 7:19 AM CDT [facility] 12/10/2023 7:06 AM CDT Dior Morales MD LABORATORY Final Result [facility] [address] [place] [address], [phone] * POCT glucose (12/10/2023 6:27 AM CDT) GLUCOSE POC 104 70 - 109 12/10/2023 6:46 AM CDT [facility] 12/10/2023 6:27 AM CDT us Dior Morales MD POCT ORDERABLES - DEVICE Final R esult Performing Organization Address City/[facility]/ZIP Co de Phone Number [facility] [address] [place] [address], [place] [phone] * (ABNORMAL) POCT glucose (12/09/2023 9:12 PM CDT) GLUCOSE POC 210(H) 70 - 109 12/09/2023 9:20 PM CDT [facility] 12/09/2023 9:12 PM CDT us Dior Morales MD POCT ORDERABLES - DEVICE Final R esult Performing Organization Address [facility] Co de Phone Number [facility] [address] [place] [address], [place] [phone] * (ABNORMAL) POCT glucose (12/09/2023 3:25 PM CDT) GLUCOSE POC 180(H) 70 - 109 12/09/2023 3:35 PM CDT [facility] Comment:RN Notified 12/09/2023 3:25 PM CDT us Dior Morales MD POCT ORDERABLES - DEVICE Final R esult Performing Organization Address City/[facility] Co de Phone Number [facility] [address] [place] [address], [place] [phone] * (ABNORMAL) POCT glucose (12/09/2023 12:06 PM CDT) GLUCOSE POC 110(H) 70 - 109 12/09/2023 12:09 PM CDT [facility] Comment:RN Notified 12/09/2023 12:0 6 PM CDT iDor Morales MD POCT ORDERABLES - DEVICE Final R esult Performing Organization Address [facility] Co de Phone Number [facility] [address] [place] [address], [phone] * (ABNORMAL) POCT glucose (12/09/2023 6:00 AM CDT) GLUCOSE POC 157(H) 70 - 109 12/09/2023 6:06 AM CDT [facility] 12/09/2023 6:00 AM CDT Willem Lora MD POCT ORDERABLES - DEVICE Final R esult Performing Organization Address [facility] de Phone Number [facility] [address] [place] [address], [phone] * (ABNORMAL) BASIC METABOLIC PANEL (12/09/2023 4:40 AM CDT) SODIUM S/P/B 137 136 - 145 MMOL/L 12/09/2023 5:43 AM CDT [facility] POTASSIUM S/P/B 4.3 3.5 - 5.1 MMOL/L 12/09/2023 5:43 AM CDT [facility] Comment:SLIGHT HEMOLYSIS, RE SULT MAY BE AFFECTED. CHLORIDE S/P/B 100 97 - 115 MMOL/L 12/09/2023 5:43 AM CDT [facility] CO2 31.7 21.0 - 32.0 MMOL/L 12/09/2023 5:43 AM CDT [facility] GLUCOSE 144(H) 74 - 106 MG/DL 12/09/2023 5:43 AM CDT [facility] BUN 24(H) 7 - 18 MG/DL 12/09/2023 5:43 AM CDT [facility] CREATININE S/P/B 1.07 0.70 - 1.30 MG/DL 12/09/2023 5:43 AM CDT [facility] CALCIUM S/P/B 9.5 8.5 - 10.1 MG/DL 12/09/2023 5:43 AM CDT [facility] ANION GAP 5.3 2.0 - 10.0 MMOL/L 12/09/2023 5:43 AM CDT [facility] OSMOLALITY (CALC) 291 MOSM/KG 024 5:43 AM T [facility] Comment:REFERENCE RANGE NOT ESTABLISHED GFR ESTIMATE 77(L) >90 ML/MIN/1. 73 M2 12/09/2023 5:43 AM CDT [facility] GFR NOTES GFR REFERENCE S: 12/09/2023 5:43 AM CDT [facility] Comment: THE ESTIMATED GFR IS CALCULATED [...] ml/min/1.73 m2 G5,KIDNEY FAILURE: <15 ml/min/1.73 m2 12/09/2023 4:40 AM CDT Leonela Farias [facility]- LABORATORY Final R esult [facility] [address] [place] [address], [phone] * (ABNORMAL) CBC W/DIFF AUTOMATED (12/09/2023 4:40 AM CDT) [facility] WBC 12.04(H) 4.00 - 10.80 x10'3/uL 12/09/2023 5:05 AM CDT [facility] RBC 4.11(L) 4.50 - 6.10 x10'6/uL 12/09/2023 5:05 AM CDT [facility] HGB 11.0(L) 13.0 - 18.0 G/DL 12/09/2023 5:05 AM CDT [facility] HCT 35.7(L) 37.0 - 52.0 % 12/09/2023 5:05 AM CDT [facility] MCV 86.9 78.0 - 100.0 FL 12/09/2023 5:05 AM CDT [facility] MCH 26.8(L) 27.0 - 31.0 PG 12/09/2023 5:05 AM CDT [facility] MCHC 30.8(L) 33.0 - 36.0 G/DL 12/09/2023 5:05 AM CDT [facility] RDW 15.5(H) 11.5 - 14.5 % 12/09/2023 5:05 AM CDT [facility] PLT 236 150 - 350 x10'3/uL 12/09/2023 5:05 AM CDT [facility] MPV 11.2(H) 7.4 - 10.4 FL 12/09/2023 5:05 AM CDT [facility] ABS. NEUTROPHILS 9.38(H) 1.60 - 8.30 x10'3/uL 12/09/2023 5:05 AM CDT [facility] ABS. LYMPHOCYTES 1.40 0.80 - 4.70 x10'3/uL 12/09/2023 5:05 AM CDT [facility] ABS. MONOCYTES 1.14 0.00 - 1.50 x10'3/uL 12/09/2023 5:05 AM CDT [facility] ABS. EOSINOPHILS 0.00 0.00 - 0.40 x10'3/uL 12/09/2023 5:05 AM CDT [facility] ABS. BASOPHILS 0.03 0.00 - 0.20 x10'3/uL 12/09/2023 5:05 AM CDT [facility] ABS. IMMATURE GRANULOCYTES 0.09(H) 0.00 - 0.03 x10'3/uL 12/09/2023 5:05 AM CDT [facility] ABS. NUCLEATED RBC'S 0.00 0.00 - 0.01 x10'3/uL 12/09/2023 5:05 AM CDT [facility] 12/09/2023 4:40 AM CDT Leonela Farias [facility]- LABORATORY Final R esult Performing Organization Address City/[facility]/ZIP Co de Phone Number [facility] [address] [place] [address], [phone] * (ABNORMAL) POCT glucose (12/08/2023 8:50 PM CDT) [facility] GLUCOSE POC 249(H) 70 - 109 12/08/2023 8:51 PM CDT [facility] 12/08/2023 8:50 PM CDT Willem Lora MD POCT ORDERABLES - DEVICE Final R esult Performing Organization Address City/[facility]/ZIP Co de Phone Number [facility] [address] [place] [address], [phone] * (ABNORMAL) TROPONIN, QUANT (12/08/2023 7:39 PM CDT) TROPONIN I HIGH SENSITIVITY 119(H) 0 - 78 ng/L 12/08/2023 8:55 PM CDT [facility] 12/08/2023 7:39 PM CDT [facility] Final R esult Performing Organization Address [facility] Co de Phone Number [facility] [address] [place] [address], [phone] * (ABNORMAL) POCT glucose (12/08/2023 4:23 PM CDT) [facility] GLUCOSE POC 264(H) 70 - 109 12/08/2023 4:28 PM CDT [facility] 12/08/2023 4:23 PM CDT Willem Lora MD POCT ORDERABLES - DEVICE Final R esult Performing Organization Address [facility] de Phone Number [facility] [address] [place] [address], [phone] * XR CHEST PORTABLE (12/08/2023 3:19 PM CDT) Anatomical Region Laterality Modality Chest Radiographic Shannan ging 12/09/2023 1:22 AM CDT Impressions 12/09/2023 1:23 AM CDT IMPRESSION: Cardiomegaly and congestive failure. Referred By: JANE ECHEVARRIA Interpreted By: Kris Woods MD, 12/09/2023 1:22 AM Narrative 12/09/2023 1:23 AM CDT Portable chest INDICATION: Congestive heart failure. COMPARISON: November 18, 2021. TECHNIQUE: Single AP chest film. FINDINGS: Mild cardiomegaly is stable. ??There is pulmonary venous congestion and very mild interstitial edema, mainly on the right. ??No pleural fluid or pneumothorax. ??Structures are unremarkable. Procedure Note Kris Woods MD - 12/09/2023 Portable chest INDICATION: Congestive heart failure. COMPARISON: November 18, 2021. TECHNIQUE: Single AP chest film. FINDINGS: Mild cardiomegaly is stable. There is pulmonary venouscongestion and very mild interstitial edema, mainly on the right. Nopleural fluid or pneumothorax. Structures are unremarkable. IMPRESSION: Cardiomegaly and congestive failure. Referred By: JANE ECHEVARRIA Interpreted By: Kris Woods MD, 12/09/2023 1:22 AM us Willem Lora MD GENERAL IMAGING Final Result * USE ECHOCARDIOGRAM W CON (12/08/2023 2:55 PM CDT) Anatomical Region Laterality Modality NA Echocardiogram 12/08/2023 2:29 PM CDT Narrative 12/09/2023 9:54 AM CDT ?Echocardiography Report Pat.Name: ??ELZA MCKEON ?Pat.ID: ?[id number] ? St.Date: ?? 12/08/2023 ? Refer.: ??[id number] WALE Stark ? EWDPROV ?EWDPROV Exam Time: 2:29:00 PM ?Study Type:ECHO W/CONTRAST COMPLETE Height: ?70 in ? Weight: ?302 lb ? BSA: ? 2.49 m2 ?Age: ??1960,63Y ? Sex: ? M ? BP: ?144/78 ? HR: ?78 bpm ? Sonogrphr: Leonid Bautista RDCS, RVT Pat. Stat.:Inpatient ? CPT - 4: ?C8929 ? Reason for Study:Congestive heart failure Procedures: 2D, M-mode, Doppler, Color Flow, Definity was used to enhance endocardial definition. The study quality is technically adequate. Race: ?W ? ++++++++++++++++++++++++++++++++++++ SUMMARY: ++++++++++++++++++++++++++++++++++++ Estimated left ventricular ejection fraction is 55-60%. The right ventricular size is mildly enlarged. Right ventricular systolic function is normal. The left atrial size is mildly enlarged. No evidence of pericardial effusion. There is trace tricuspid regurgitation. ++++++++++++++++++++++++++++++++++++ FINDINGS: ++++++++++++++++++++++++++++++++++++ LV: ? The left ventricular size is mildly enlarged. The left ?ventricular systolic function is normal. Estimated left ?ventricular ejection fraction is 55-60%. The average E/e' is ?elevated at >12 and EF > or equal to 50. RV: ? The right ventricular size is mildly enlarged. Right ?ventricular systolic function is normal. LA: ? The left atrial size is mildly enlarged. RA: ? The right atrial size is normal. ROBBIN: ? No evidence of pericardial effusion. AO: ? Normal aortic root. PA: ? Unable to reliably quantitate pulmonary systolic pressure. PVn: ?Pulmonary vein velocity is consistent with normal left ?atrial pressures. SVn: ?Inferior vena cava is normal. Inferior vena cava shows >50% ?collapse with respiration consistent with normal right ?atrial pressure. AV: ? The aortic valve is trileaflet. No evidence of aortic valve ?stenosis. No evidence of aortic valve regurgitation. MV: ? Structurally normal mitral valve. Trace mitral ?regurgitation. No evidence of mitral stenosis. PV: ? The pulmonic valve is normal There is trace pulmonic ?regurgitation TV: ? The tricuspid valve appears structurally normal. There is ?trace tricuspid regurgitation. ++++++++++++++++++++++++++++++++++++ MEASUREMENTS: ++++++++++++++++++++++++++++++++++++ ?DOPPLER LVOT ?? LVOTpkPG ? 3 mmHg ?LVOTmnPG ? 2 mmHg LVOTpkVel ? 92.7 cm/s (70-110) LVOT SV ? 63 ml ?? LVOT TVI ?19.4 cm ?LVOT CO ? 91.7 ml/s AV Forward Flow AV TVI ?21.6 cm ?AV pkPG ?5 mmHg AV pkVel ? 108 cm/s (100-170) Area (TVI) ?2.94 cm2 ??(3-5)* AV mnVel ?77.7 cm/s ?Area ([place]) ?2.81 cm2 ??(3-5)* AV mnPG ?3 mmHg ? MV Forward Flow MV DeTm ?185 msec ?MV pkE ?96.8 cm/s (60- 130) MV E/A ? 2.3 ? MV pkA ?42.8 cm/s PV Forward Flow PV pkVel ?89.5 cm/s (60-90) ??PV pkPG ?3 mmHg Lat E' ?? Lat e ? 9.36 cm/s ? Lat E/E' ?? Lat E/e ? 10.3 ? Med E' ?? Med e ? 5.55 cm/s ? Med E/E' ?? Med E/e ? 17.4 ? Aortic Valve ?? Aortic Valve Ar ??1.18 ?Aortic Valve Ve ??0.86 ? AV DI ?? Value ?0.9 ? [place] (VTI) Index ?? Value ? 1.18 ? LV Mass 2D ?? Value ?181 g ? LV Mass Pmgcg9A ?? Value ? 72.7 g/m2 ? RA Volume ?? Atrial Do ?? 4.54 cm ? Atrial Do ?? 18.3 cm2 Atrial Do ?? 62.3 ml ?2D Left Ventricle ?? LVIDd ?5.3 cm ?? (3.6-5.2)* LVIDs ? 3.38 cm ?? (2.3-3.9) LVPW ?? LVPWd ?0.906 cm ? Ventricular Septum ?? IVSd ? 0.949 cm ? Left Atrium ?? LA a-p ?4.63 cm ?? (2.8-3.4)* Aorta ?? Ao Rtd ?3.08 cm ? Ao Asc ?3.17 cm ?? (2.1-3.4) LVOT ?? LVOT ?2.04 cm ? Ratios ?? IVS Right Ventricle ?? Right Ventricle ??5.26 cm ?MMODE TA ?? Tricuspid Annul ??2.93 cm ? <Electronic Signature> 12/09/2023 09:54 AM Jodie Sheth M.D. Procedure Note Carlos Sheth MD - 12/09/2023 Echocardiography Report Pat.Name: ELZA MCKEON Pat.ID: [id number] .Date: 12/08/2023 Refer.: [id number] WALE Stark EWDPROV EWDPROV Exam Time: 2:29:00 PM Study Type:ECHO W/CONTRAST COMPLETE Height: 70 in Weight: 302 lb BSA: 2.49 m2 Age: 9 1960,63Y Sex: M BP: 144/78 HR: 78 bpm Sonogrphr: Leonid Bautista RDCS, RVT Pat. Stat.:Inpatient CPT - 4: C8929 Reason for Study:Congestive heart failure Procedures: 2D, M-mode, Doppler, Color Flow, Definity was used to enhance endocardial definition. The study quality is technically adequate. Race: W ++++++++++++++++++++++++++++++++++++ SUMMARY: ++++++++++++++++++++++++++++++++++++ Estimated left ventricular ejection fraction is 55-60%. The right ventricular size is mildly enlarged. Right ventricular systolic function is normal. The left atrial size is mildly enlarged. No evidence of pericardial effusion. There is trace tricuspid regurgitation. ++++++++++++++++++++++++++++++++++++ FINDINGS: ++++++++++++++++++++++++++++++++++++ LV: The left ventricular size is mildly enlarged. The left ventricular systolic function is normal. Estimated left ventricular ejection fraction is 55-60%. The average E/e' is elevated at >12 and EF > or equal to 50. RV: The right ventricular size is mildly enlarged. Right ventricular systolic function is normal. LA: The left atrial size is mildly enlarged. RA: The right atrial size is normal. ROBBIN: No evidence of pericardial effusion. AO: Normal aortic root. PA: Unable to reliably quantitate pulmonary systolic pressure. PVn: Pulmonary vein velocity is consistent with normal left atrial pressures. SVn: Inferior vena cava is normal. Inferior vena cava shows >50% collapse with respiration consistent with normal right atrial pressure. AV: The aortic valve is trileaflet. No evidence of aortic valve stenosis. No evidence of aortic valve regurgitation. MV: Structurally normal mitral valve. Trace mitral regurgitation. No evidence of mitral stenosis. PV: The pulmonic valve is normal There is trace pulmonic regurgitation TV: The tricuspid valve appears structurally normal. There is trace tricuspid regurgitation. ++++++++++++++++++++++++++++++++++++ MEASUREMENTS: ++++++++++++++++++++++++++++++++++++ DOPPLER LVOT LVOTpkPG 3 mmHg LVOTmnPG 2 mmHg LVOTpkVel 92.7 cm/s (70-110) LVOT SV 63 ml LVOT TVI 19.4 cm LVOT CO 91.7 ml/s AV Forward Flow AV TVI 21.6 cm AV pkPG 5 mmHg AV pkVel 108 cm/s (100-170) Area (TVI) 2.94 cm2 (3-5)* AV mnVel 77.7 cm/s Area (Randolph) 2.81 cm2 (3-5)* AV mnPG 3 mmHg MV Forward Flow MV DeTm 185 msec MV pkE 96.8 cm/s (60-130) MV E/A 2.3 MV pkA 42.8 cm/s PV Forward Flow PV pkVel 89.5 cm/s (60-90) PV pkPG 3 mmHg Lat E' Lat e 9.36 cm/s Lat E/E' Lat E/e 10.3 Med E' Med e 5.55 cm/s Med E/E' Med E/e 17.4 Aortic Valve Aortic Valve Ar 1.18 Aortic Valve Ve 0.86 AV DI Value 0.9 AURORA (VTI) Index Value 1.18 LV Mass 2D Value 181 g LV Mass [id number] Value 72.7 g/m2 RA Volume Atrial Do 4.54 cm Atrial Do 18.3 cm2 Atrial Do 62.3 ml 2D Left Ventricle LVIDd 5.3 cm (3.6-5.2)* LVIDs 3.38 cm (2.3-3.9) LVPW LVPWd 0.906 cm Ventricular Septum IVSd 0.949 cm Left Atrium LA a-p 4.63 cm (2.8-3.4)* Aorta Ao Rtd 3.08 cm Ao Asc 3.17 cm (2.1-3.4) LVOT LVOT 2.04 cm Ratios IVS Right Ventricle Right Ventricle 5.26 cm MMODE TA Tricuspid Annul 2.93 cm <Electronic Signature> 12/09/2023 09:54 AM Jodie Sheth M.D. Leonela Farias [facility] ECHO Final R esult * (ABNORMAL) PRO-BRAIN NATRIURETIC PEPTIDE (12/08/2023 2:22 PM CDT) PRO-B TYPE NATRIURETIC PEPTIDE 526(H) <125 PG/ML 12/08/2023 2:51 PM CDT [facility] Comment: AGE INDEPENDENT: <300 PG/ML HAS A 99% NEGATIVE PREDICTIVE VALUE FOR EXCLUDING ACUTE CHF <50 YEARS: >450 PG/ML IS CONSISTENT WITH ACUTE CHF 50-75 YEARS: >900 PG/ML IS CONSISTENT WITH ACUTE CHF >75 YEARS: >1800 PG/ML IS CONSISTENT WITH ACUTE CHF IN PATIENTS WITH RENAL INSUFFICIENCY (GFR <60), >1200 PG/ML YIELDS A DIAGNOSTIC SENSITIVITY AND SPECIFICITY OF 89% AND 72% FOR ACUTE CHF. 12/08/2023 2:22 PM CDT Leonela Farias [facility] Final R esult Performing Organization Address [facility] Co de Phone Number [facility] [address] [place] [address], [phone] * PROCALCITONIN (PCT) (12/08/2023 2:22 PM CDT) Procalcitonin 0.06 0.00 - 0.49 NG/ML 12/09/2023 9:54 AM CDT [facility] 12/08/2023 2:22 PM CDT Leonela Farias [facility] Final R esult Performing Organization Address [facility] de Phone Number [facility] [address] [place] [address], [place] [phone] * (ABNORMAL) TROPONIN, QUANT (12/08/2023 2:22 PM CDT) TROPONIN I HIGH SENSITIVITY 155(H) 0 - 78 ng/L 12/08/2023 2:51 PM CDT [facility] 12/08/2023 2:22 PM CDT [facility] Sandhya Farias [facility] Final R esult Performing Organization Address City/[facility] Co de Phone Number [facility] [address] [place] [address], [phone] * (ABNORMAL) HEMOGLOBIN, GLYCATED (12/08/2023 2:22 PM CDT) HGB A1C 7.0(H) <5.7 % 12/08/2023 3:23 PM CDT [facility] ESTIMATED AVG GLUCOSE 154(H) 74 - 114 MG/DL 12/08/2023 3:23 PM CDT [facility] 12/08/2023 2:22 PM CDT Leonela Farias [facility] Final R esult Performing Organization Address [facility] Co de Phone Number [facility] [address] [place] [address], [phone] * MAGNESIUM (12/08/2023 2:22 PM CDT) MAGNESIUM 2.2 1.6 - 2.6 MG/DL 12/08/2023 2:51 PM CDT [facility] 12/08/2023 2:22 PM CDT Leonela Farias [facility] Final R esult Performing Organization Address [facility]/ZIP Co de Phone Number [facility] [address] [place] [address], [phone] * (ABNORMAL) COMPREHENSIVE METABOLIC PANEL (12/08/2023 2:22 PM CDT) SODIUM S/P/B 134(L) 136 - 145 MMOL/L 12/08/2023 2:51 PM CDT [facility] POTASSIUM S/P/B 4.6 3.5 - 5.1 MMOL/L 12/08/2023 2:51 PM CDT [facility] CHLORIDE S/P/B 100 97 - 115 MMOL/L 12/08/2023 2:51 PM CDT [facility] CO2 27.0 21.0 - 32.0 MMOL/L 12/08/2023 2:51 PM CDT [facility] GLUCOSE 251(H) 74 - 106 MG/DL 12/08/2023 2:51 PM CDT [facility] BUN 17 7 - 18 MG/DL 12/08/2023 2:51 PM CDT [facility] CREATININE S/P/B 1.15 0.70 - 1.30 MG/DL 12/08/2023 2:51 PM CDT [facility] CALCIUM S/P/B 9.3 8.5 - 10.1 MG/DL 12/08/2023 2:51 PM CDT [facility] BILIRUBIN TOTAL S/P/B 0.8 0.2 - 1.0 MG/DL 12/08/2023 2:51 PM CDT [facility] ALKALINE PHOSPHATASE S/P/B 89 45 - 115 U/L 12/08/2023 2:51 PM CDT [facility] AST 21 15 - 37 U/L 12/08/2023 2:51 PM CDT [facility] ALT 40 16 - 61 U/L 12/08/2023 2:51 PM CDT [facility] TOTAL PROTEIN S/P/B 7.7 6.4 - 8.2 G/DL 12/08/2023 2:51 PM CDT [facility] ALBUMIN S/P/B 3.0(L) 3.4 - 5.0 G/DL 12/08/2023 2:51 PM CDT [facility] ANION GAP 7.0 2.0 - 10.0 MMOL/L 12/08/2023 2:51 PM CDT [facility] OSMOLALITY (CALC) 288 MOSM/KG 024 2:51 PM T [facility] Comment:REFERENCE RANGE NOT ESTABLISHED GFR ESTIMATE 71(L) >90 ML/MIN/1. 73 M2 12/08/2023 2:51 PM CDT [facility] GFR NOTES GFR REFERENCE S: 12/08/2023 2:51 PM CDT [facility] Comment: THE ESTIMATED GFR IS CALCULATED [...] ml/min/1.73 m2 G5,KIDNEY FAILURE: <15 ml/min/1.73 m2 12/08/2023 2:22 PM CDT Leonela Farias [facility] Final R esult Performing Organization Address City/[facility] Co de Phone Number [facility] [address] [place] [address], [place] [phone] * (ABNORMAL) PROTHROMBIN TIME, VENOUS (12/08/2023 2:22 PM CDT) PROTIME 15.7(H) 9.4 - 12.5 SEC 12/08/2023 2:51 PM CDT [facility] INR 1.4(H) 0.8 - 1.1 12/08/2023 2:51 PM CDT [facility] 12/08/2023 2:22 PM CDT Leonela Farias [facility] Final R esult Performing Organization Address City/[facility] Co de Phone Number [facility] [address] [place] [address], [place] [phone] * (ABNORMAL) CBC W/DIFF AUTOMATED (12/08/2023 2:22 PM CDT) [facility] WBC 9.58 4.00 - 10.80 x10'3/uL 12/08/2023 2:33 PM CDT [facility] RBC 4.03(L) 4.50 - 6.10 x10'6/uL 12/08/2023 2:33 PM CDT [facility] HGB 11.1(L) 13.0 - 18.0 G/DL 12/08/2023 2:33 PM CDT [facility] HCT 35.3(L) 37.0 - 52.0 % 12/08/2023 2:33 PM CDT [facility] MCV 87.6 78.0 - 100.0 FL 12/08/2023 2:33 PM CDT [facility] MCH 27.5 27.0 - 31.0 PG 12/08/2023 2:33 PM CDT [facility] MCHC 31.4(L) 33.0 - 36.0 G/DL 12/08/2023 2:33 PM CDT [facility] RDW 15.5(H) 11.5 - 14.5 % 12/08/2023 2:33 PM CDT [facility] PLT 202 150 - 350 x10'3/uL 12/08/2023 2:33 PM CDT [facility] MPV 11.0(H) 7.4 - 10.4 FL 12/08/2023 2:33 PM CDT [facility] ABS. NEUTROPHILS 8.65(H) 1.60 - 8.30 x10'3/uL 12/08/2023 2:33 PM CDT [facility] ABS. LYMPHOCYTES 0.63(L) 0.80 - 4.70 x10'3/uL 12/08/2023 2:33 PM CDT [facility] ABS. MONOCYTES 0.23 0.00 - 1.50 x10'3/uL 12/08/2023 2:33 PM CDT [facility] ABS. EOSINOPHILS 0.00 0.00 - 0.40 x10'3/uL 12/08/2023 2:33 PM CDT [facility] ABS. BASOPHILS 0.02 0.00 - 0.20 x10'3/uL 12/08/2023 2:33 PM CDT [facility] ABS. IMMATURE GRANULOCYTES 0.05(H) 0.00 - 0.03 x10'3/uL 12/08/2023 2:33 PM CDT [facility] ABS. NUCLEATED RBC'S 0.00 0.00 - 0.01 x10'3/uL 12/08/2023 2:33 PM CDT [facility] 12/08/2023 2:22 PM CDT Leonela Farisa [facility] Final R esult [facility] [address] [place] [address], [id number] * ECG 12 lead (12/08/2023 2:12 PM CDT) 12/08/2023 2:12 PM CDT Narrative [facility] - 12/09/2023 4:43 PM CDT ? [facility] ?[address], [place] ??[address] ? Test Date: ?2023-12-08 Pat Name: ? ELZA MCKEON ? Department: ?? 1 ? Room: ? 510AA Gender: ? Male ? 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 Ll : ?1960 ? Requested By: LEONELA DINORA Order Number: [id number] ? Reading MD: ?? Kyle Mckeon ? Measurements Intervals ?[place] ? Rate: ? 82 ? P: ?73 [place]: ? 195 ?QRS: ?61 QRSD: ? 142 ?T: ?17 QT: ? 398 ? QTc: ?466 ? 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: Lisa : 1960 Requested By: LEONELA FARIAS Order Number: [id number] Reading MD: Kyle Mckeon Measurements Intervals [place] Rate: 82 P: 73 [place]: 195 QRS: 61 QRSD: 142 T: 17 QT: 398 QTc: 466 Interpretive Statements SINUS RHYTHM WITH OCCASIONAL SUPRAVENTRICULAR PREMATURE COMPLEXES RIGHT BUNDLE BRANCH BLOCK [120+ ms QRS DURATION, UPRIGHT V1, 40+ ms SIN I/aVL/V4/V5/V6] Leonela Farias [facility]- ECG ORDERABLES Final R esult [facility] documented in this encounter Visit Diagnoses Diagnosis CHF exacerbation ([facility])- Primary Congestive heart failure, unspecified S/P ablation of atrial fibrillation Other postprocedural status CHF (congestive heart failure) ([facility]) Congestive heart failure, unspecified Acute on chronic systolic congestive heart failure ([facility]) Acute on chronic systolic heart failure Acute on chronic combined systolic and diastolic congestive heart failure ([facility]) Acute on chronic combined systolic and diastolic heart failure CHF exacerbation ([facility]) Congestive heart failure, unspecified Essential hypertension Unspecified essential hypertension Hyperlipidemia Other and unspecified hyperlipidemia 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 Coronary artery disease Coronary atherosclerosis of unspecified type of vessel, ruby or graft documented in this encounter Admitting Diagnoses Diagnosis CHF exacerbation ([facility]/HCC) Congestive heart failure, unspecified documented in this encounter Administered Medications Inactive Administered Medications - up to 3 most recent administrations Medication Order MAR Action Action Date Dose Rate Site amitriptyline (ELAVIL) tablet 100 mg 100 mg, Oral, Nightly at bedtime, First dose on Tue12/08/23 at 2100, Until Discontinued Given 12/10/2023 9:07 PM CDT 100 mg Given 12/09/2023 9:39 PM CDT 100 mg Given 12/08/2023 10:16 PM CDT 100 mg apixaban (ELIQUIS) tablet 5 mg 5 mg, Oral, 2 times daily, Indications: Atrial Fibrillation, First dose on Tue12/08/23 at 2100, Until DiscontinuedIndications:Atrial Fibrillation Given 12/11/2023 8:07 AM CDT 5 mg Given 12/10/2023 9:07 PM CDT 5 mg Given 12/10/2023 8:00 AM CDT 5 mg aspirin chewable tablet 81 mg 81 mg, Oral, Daily, First dose on Tue12/09/23 at 0900, Until Discontinued Given 12/11/2023 8:07 AM CDT 81 mg Given 12/10/2023 8:01 AM CDT 81 mg Given 12/09/2023 8:20 AM CDT 81 mg atorvastatin (LIPITOR) tablet 20 mg 20 mg, Oral, Nightly at bedtime, First dose on Tue12/08/23 at 2100, Until Discontinued Given 12/10/2023 9:07 PM CDT 20 m g Given 12/09/2023 8:45 PM CDT 20 mg Given 12/08/2023 9:10 PM CDT 20 mg empagliflozin (JARDIANCE) tablet 10 mg 10 mg, Oral, Daily, First dose on Tue12/08/23 at 1830, Until Discontinued Given 12/09/2023 8:22 AM CDT 10 mg Given 12/08/2023 6:32 PM CDT 10 mg empagliflozin (JARDIANCE) tablet 10 mg 10 mg, Oral, Daily, First dose (after last modification) on Tue12/10/23 at 0900, Until Discontinued, Patient Using Own Medication Supply. Storage Location: Pt cassette Medication Name: Jardiance Dose Instructions: 1 tab po qd Qty Verified by: Initials/Date: jar12/09/2023 Given 12/11/2023 8:11 AM CDT 10 mg Given 12/10/2023 11:22 AM CDT 10 mg famotidine (PEPCID) tablet 40 mg 40 mg, Oral, 2 times daily, First dose on Tue12/08/23 at 2100, Until Discontinued Given 12/11/2023 8:07 AM CDT 40 mg Given 12/10/2023 9:07 PM CDT 40 mg Given 12/10/2023 8:01 AM CDT 40 mg furosemide (LASIX) injection 40 mg 40 mg, Intravenous, 2 times daily, First dose on Tue12/08/23 at 1700, Until Discontinued, Administer IV push 20-40mg/min. Given 12/10/2023 8:00 AM CDT 40 mg Given 12/09/2023 6:30 PM CDT 40 mg Given 12/09/2023 9:34 AM CDT 40 mg gabapentin (NEURONTIN) capsule 400 mg 400 mg, Oral, 3 times daily, First dose on Tue12/08/23 at 1600, Until Discontinued Given 12/11/2023 8:07 AM CDT 400 mg Given 12/10/2023 9:07 PM CDT 400 mg Given 12/10/2023 5:07 PM CDT 400 mg insulin glargine (LANTUS) injection 25 Units 25 Units, Subcutaneous, Nightly at bedtime, First dose on Tue12/08/23 at 2100, Until Discontinued Given 12/10/2023 9:07 PM CDT 25 Units Left Arm Given 12/09/2023 9:40 PM CDT 25 Units Le ft Arm Given 12/08/2023 9:11 PM CDT 25 Units Le ft Arm insulin lispro (HUMALOG/ADMELOG) injection 0-6 Units 0-6 Units, Subcutaneous, 4 times daily before meals and nightly, First dose on Tue12/08/23 at 1600, Until Discontinued, From sliding scale insulin subcut med order set - For TDI less than 30 units Blood Glucose: (Less than 70, Initiate Hypoglycemia Standing Orders) (70 - 149, administer 0 units) (150 - 199, administer 1 units) (200 - 249, administer 2 units) (250 - 299, administer 3 units) (300 - 349, administer 4 units) (Greater than 349, administer 6 units and Call Physician) Given 12/09/2023 9:39 PM CDT 2 Units Left Arm Given 12/09/2023 4:56 PM CDT 1 Units Le ft Arm Given 12/09/2023 6:27 AM CDT 1 Units Ri ght Arm insulin lispro (HUMALOG/ADMELOG) injection 20 Units 20 Units, Subcutaneous, 3 times daily with meals, First dose (after last modification) on Tue12/08/23 at 1700, Until Discontinued, For sliding scale, activate Sliding Scale Insulin order set. Given 12/11/2023 12:34 PM CDT 20 Units Left Arm Given 12/11/2023 8:06 AM CDT 20 Units Le ft Lower Abdomen Given 12/10/2023 5:07 PM CDT 20 Units Le ft Lower Abdomen losartan (COZAAR) tablet 50 mg 50 mg, Oral, Daily, First dose on Tue12/08/23 at 1530, Until Discontinued Given 12/11/2023 8:07 AM CDT 50 mg Given 12/10/2023 8:01 AM CDT 50 mg Given 12/09/2023 8:21 AM CDT 50 mg metoprolol succinate ER (TOPROL-XL) 24 hr tablet 200 mg 200 mg, Oral, 2 times daily, First dose on Tue12/08/23 at 2100, Until Discontinued, May be split in half along the tablet score line; do not chew or crush. Given 12/11/2023 8:07 AM CDT 200 mg Given 12/10/2023 9:07 PM CDT 200 mg Given 12/10/2023 8:00 AM CDT 200 mg perflutren lipid microsphere (DEFINITY) injection 1 mL 1 mL, Intravenous, IMG once as needed, Contrast, 1 dose, Starting on Tue12/08/23 at 1456, Until Tue12/08/23 at 1458, Administer over 30-60 seconds. Follow with 10 mL saline flush. Given 12/08/2023 2:58 PM CDT 1 mL potassium chloride CR (KLOR-CON M) tablet 20 mEq 20 mEq, Oral, Daily, First dose on Tue12/09/23 at 0900, Until Discontinued, Do not chew, crush, or suck on tablet. May break in half. May dissolve whole tablet in 120 mL of water and drink immediately. Given 12/11/2023 8:07 AM CDT 20 mEq Given 12/10/2023 8:01 AM CDT 20 mEq Given 12/09/2023 8:21 AM CDT 20 mEq traMADol (ULTRAM) tablet 50 mg 50 mg, Oral, 3 times daily, First dose on Tue12/08/23 at 1600, Until Discontinued Given 12/11/2023 8:07 AM CDT 50 mg Given 12/10/2023 9:07 PM CDT 50 mg Given 12/10/2023 5:08 PM CDT 50 mg documented in this encounter Active and Recently Administered Medications Times are shown in CDT. Scheduled Medication Order 12/09/2023 12/10/2023 12/11/2023 amitriptyline (ELAVIL) tablet 100 mg 100 mg, Oral, Nightly at bedtime, First dose on Tue12/08/23 at 2100, Until Discontinued 2138 (Given - Provider: April Mae RN) 2106 (Given - Provider: Gomez Vigil RN) apixaban (ELIQUIS) tablet 5 mg 5 mg, Oral, 2 times daily, Indications: Atrial Fibrillation, First dose on Tue12/08/23 at 2100, Until Discontinued 819 (Given - Provider: Charlotte Mirza LPN)2044 (Given - Provider: Atul Gaitan RN) 08 (Given - Provider: Ave Yost RN)2106 (Given - Provider: Gomez Vigil RN) 08 (Given - Provider: Ave Yost RN) aspirin chewable tablet 81 mg 81 mg, Oral, Daily, First dose on Tue12/09/23 at 0900, Until Discontinued 819 (Given - Provider: Charlotte Mirza LPN) 08 (Given - Provider: Ave Yost RN) 08 (Given - Provider: Ave Yost RN) atorvastatin (LIPITOR) tablet 20 mg 20 mg, Oral, Nightly at bedtime, First dose on Tue12/08/23 at 2100, Until Discontinued 2044 (Given - Provider: Atul Gaitan RN) 2106 (Given - Provider: Gomez Vigil RN) empagliflozin (JARDIANCE) tablet 10 mg (CANCELED) 10 mg, Oral, Daily, First dose on Vika 12/08/23 at 1830, Until Discontinued 0822 (Given - Provider: Charlotte Mirza LPN) empagliflozin (JARDIANCE) tablet 10 mg 10 mg, Oral, Daily, First dose (after last modification) on [facility] 12/10/23 at 0900, Until Discontinued, Patient Using Own Medication Supply. Storage Location: Pt cassette Medication Name: Jardiance Dose Instructions: 1 tab po qd Qty Verified by: Initials/Date: 12/09/2023 112 (Given - Provider: Ave Yost RN - Comment: wasn't available in pysix.) 08 (Given - Provider: Ave Yost RN) famotidine (PEPCID) tablet 40 mg 40 mg, Oral, 2 times daily, First dose on Vika 12/08/23 at 2100, Until Discontinued 08 (Given - Provider: Charlotte Mirza LPN)2044 (Given - Provider: Atul Gaitan RN) 08 (Given - Provider: Ave Yost RN)2106 (Given - Provider: Gomez Vigil RN) 08 (Given - Provider: Ave Yost RN) furosemide (LASIX) injection 40 mg (CANCELED) 40 mg, Intravenous, 2 times daily, First dose on Vika 12/08/23 at 1700, Until Discontinued, Administer IV push 20-40mg/min. 0934 (Given - Provider: Nadja Cash RN)1830 (Given - Provider: Nadja Cash RN) 0800 (Given - Provider: Ave Yost RN) gabapentin (NEURONTIN) capsule 400 mg 400 mg, Oral, 3 times daily, First dose on Vika 12/08/23 at 1600, Until Discontinued 0821 (Given - Provider: Charlotte Mirza LPN)165 (Given - Provider: Charlotte Mirza LPN)2044 (Given - Provider: Atul Gaitan RN) 08 (Given - Provider: Ave Yost RN)170 (Given - Provider: Ave Yost RN)2106 (Given - Provider: Gomez Vigil RN) 0807 (Given - Provider: Ave Yost RN)1600 (Canceled Entry - Provider: Automatic Discharge Provider - Comment: Automatically canceled at discontinue of medication order) insulin glargine (LANTUS) injection 25 Units 25 Units, Subcutaneous, Nightly at bedtime, First dose on Vika 12/08/23 at 2100, Until Discontinued 2139 (Given - Provider: April Mae RN) 2106 (Given - Provider: Gomez Vigil RN) insulin lispro (HUMALOG/ADMELOG) injection 0-6 Units 0-6 Units, Subcutaneous, 4 times daily before meals and nightly, First dose on Vika 12/08/23 at 1600, Until Discontinued, From sliding scale insulin subcut med order set - For TDI less than 30 units Blood Glucose: (Less than 70, Initiate Hypoglycemia Standing Orders) (70 - 149, administer 0 units) (150 - 199, administer 1 units) (200 - 249, administer 2 units) (250 - 299, administer 3 units) (300 - 349, administer 4 units) (Greater than 349, administer 6 units and Call Physician) 0627 (Given - Provider: Nicki Marte RN)1212 (Not Given - Provider: Charlotte Mirza LPN - Reason: Order parameters not met)1656 (Given - Provider: Charlotte Mirza LPN)213 (Given - Provider: April Mae RN) 0649 (Not Given - Provider: April Mae RN - Reason: Order parameters not met)1226 (Not Given - Provider: Ave Yost RN - Reason: Order parameters not met)1702 (Not Given - Provider: Ave Yost RN - Reason: Order parameters not met - Comment: Blood sugar 97)205 (Not Given - Provider: Gomez Vigil RN - Reason: Order parameters not met - Comment: B) 0724 (Not Given - Provider: Ave Yost RN - Reason: Order parameters not met)1141 (Not Given - Provider: Ave Yost RN - Reason: Order parameters not met)1600 (Canceled Entry - Provider: Automatic Discharge Provider - Comment: Automatically canceled at discontinue of medication order) insulin lispro (HUMALOG/ADMELOG) injection 20 Units 20 Units, Subcutaneous, 3 times daily with meals, First dose (after last modification) on Tue12/08/23 at 1700, Until Discontinued, For sliding scale, activate Sliding Scale Insulin order set. 0821 (Given - Provider: Charlotte Mirza LPN)1213 (Not Given - Provider: Charlotte Mirza LPN - Reason: Other - Comment: BS after meal is 110)1655 (Given - Provider: Charlotte Mirza LPN) 0819 (Given - Provider: Ave Yost RN)1229 (Given - Provider: Ave Yost RN)1707 (Given - Provider: Ave Yost, [place]) 0806 (Given - Provider: Ave Yost RN)1234 (Given - Provider: Ave Yost RN)1700 (Canceled Entry - Provider: Automatic Discharge Provider - Comment: Automatically canceled at discontinue of medication order) losartan (COZAAR) tablet 50 mg 50 mg, Oral, Daily, First dose on Tue12/08/23 at 1530, Until Discontinued 0821 (Given - Provider: Charlotte Mirza LPN) 0801 (Given - Provider: Ave Yost RN) 0807 (Given - Provider: Ave Yost RN) metoprolol succinate ER (TOPROL-XL) 24 hr tablet 200 mg 200 mg, Oral, 2 times daily, First dose on Tue12/08/23 at 2100, Until Discontinued, May be split in half along the tablet score line; do not chew or crush. 0823 (Not Given - Provider: Charlotte Mirza LPN - Reason: Order parameters not met)0933 (Given - Provider: Nadja Cash, [place])2044 (Given - Provider: Atul Gaitan, [place]) 08 (Given - Provider: Ave Yost RN)2106 (Given - Provider: Gomez Vigil RN) 0807 (Given - Provider: Ave Yost RN) potassium chloride CR (KLOR-CON M) tablet 20 mEq 20 mEq, Oral, Daily, First dose on Tue12/09/23 at 0900, Until Discontinued, Do not chew, crush, or suck on tablet. May break in half. May dissolve whole tablet in 120 mL of water and drink immediately. 0821 (Given - Provider: Charlotte Mirza LPN) 0801 (Given - Provider: Ave Yost RN) 0807 (Given - Provider: Aev Yost RN) traMADol (ULTRAM) tablet 50 mg 50 mg, Oral, 3 times daily, First dose on Vika 12/08/23 at 1600, Until Discontinued 0820 (Given - Provider: Charlotte Mirza LPN)1655 (Given - Provider: Charlotte Mirza LPN)2045 (Given - Provider: Atul Gaitan RN) 0800 (Given - Provider: Ave Yost RN)1708 (Given - Provider: Aev Yost, [place])2107 (Given - Provider: Gomez Vigil RN) 0807 (Given - Provider: Ave Yost RN)1600 (Canceled Entry - Provider: Automatic Discharge Provider - Comment: Automatically canceled at discontinue of medication order) PRN Medication Order 12/09/2023 12/10/2023 12/11/2023 acetaminophen (TYLENOL) tablet 650 mg 650 mg, Oral, Every 4 hours PRN, Mild pain (Scale 1 - 3), Starting on Vika 12/08/23 at 1355, Until 12/11/23 at 1755, Maximum dose of acetaminophen is 4000 mg from all sources in 24 hours. naLOXone (NARCAN) injection 0.4 mg 0.4 mg, Intravenous, As needed, Opioid reversal, Starting on Vika 12/08/23 at 1355, Until 12/11/23 at 1755 ondansetron (ZOFRAN) injection 4 mg 4 mg, Intravenous, Every 8 hours PRN, Nausea, Vomiting, Starting on Vika 12/08/23 at 1355, Until 12/11/23 at 1755, IV push over 2-5 minutes. polyethylene glycol (GLYCOLAX) packet 17 g 17 g, Oral, Daily as needed, Constipation, Starting on Vika 12/08/23 at 1355, Until 12/11/23 at 1755, If both senna and polyethylene glycol are ordered, use 1st; if no response by next dosing interval, go to next option. documented in this encounter Care Teams Scientist Relationship Specialty Start Date End Date Ti Zamora MD [address] [place] [address] PCP - General FAMILY PRACTICE 12/03/21 Elza Allan MD Avis Substance Abuse Nurse CARDIOVASCULAR DISEASE 08/19/16 Raul Santana MD CLINICAL CARDIAC ELECTROPHYSIOLOGY 06/16/17 Danny Blackwell MD [address] [place] [address] ORTHOPAEDIC SURGERY 05/01/19 Gayle Arce APRN, CHOCOLATE PRODUCTION MACHINE OPERATOR-C [address] [facility] [address] [place] [address] NURSE PRACTITIONER 03/03/20 Mendel Shah DPM [address] [place] [address] [place] [address] Consulting Physician PODIATRY/SURGERY 06/27/23 06/26/24 documented as of this encounter
--- OUTSIDE RECORDS SUMMARY | 2024-04-23 04:21 | XMS_ITS | Encounter Summary ---
Author Organization [facility] Address [address] [place] [address]. [place] [address] [place] [address] Care Team Providers Care Operation Shift Supervisor Name Role Phone Evaristo Allan MD Unavailable Unavailabl Raul Duran MD Unavailable Unavailabl Danny Lopes MD Unavailable [phone] Gayle Arce APRN, BREASTFEEDING PEER COUNSELOR-C Unavailable [phone] Ti Bonilla MD Primary Care Provider Mendel Shah DPM Unavailable [phone] Reason for Visit * Reason Onset Date Comments Results 09/13/2023 Encounter Details Date Type Department Care Team ([facility] Contact Info) Description 09/13/2023 Telephone [facility] [address] [place] [address] Gayle Arce APRN, BREASTFEEDING PEER COUNSELOR-C [address] [facility] [address] [place] [address] Results Social History Tobacco Use Types Packs/Day Years [...] 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 * Kaylyn Donaldson LPN - 09/13/2023 11:10 AM CDT ----- Message from Gayle Arce APRN, NP-C sent at 09/09/2023 6:52 PM CDT ----- Labs relatively stable on current furosemide and potassium dose. Continue meds. documented in this encounter Plan of Treatment Upcoming Encounters Date Type Department Care Team (Late st Contact Info) Description 04/25/2024 11:00 AM LIGHT COIL WINDER Appointment [facility] [address] [facility] [place] [address] Ti Bonilla MD [address] [place] [phone] 05/23/2024 3:30 PM LIGHT COIL WINDER Office Visit [facility] [place] [address] [facility] [place] [address] Jyoti Escobar MD [address] [place] [address] documented as of this encounter Visit Diagnoses Not on filedocumented in this encounter Care Teams Operation Shift Supervisor Relationship Specialty Start Date End Date Ti Bonilla MD [address] [place] [phone] PCP - General FAMILY PRACTICE 12/03/21 Evaristo Allan MD Griffin Lead Applications Developer CARDIOVASCULAR DISEASE 08/19/16 Raul Santana MD CLINICAL CARDIAC ELECTROPHYSIOLOGY 06/16/17 Danny Blackwell MD [address] [place] [address] ORTHOPAEDIC SURGERY 05/01/19 Gayle Arce APRN, BREASTFEEDING PEER COUNSELOR-C [address] [place] [address] [address] [place] [phone] NURSE PRACTITIONER 03/03/20 Mendel Shah DPM [address] [place] [address] [place] [address] Consulting Physician PODIATRY/SURGERY 06/27/23 06/26/24 documented as of this encounter
--- OUTSIDE RECORDS SUMMARY | 2024-04-23 04:21 | XMS_ITS | Encounter Summary ---
Author Organization [facility] Address [address] [place] [address]. [place] [address] [place] [address] Care Team Providers Care Timber Hand Name Role Phone Evaristo Allan MD Unavailable Unavailabl Raul Duran MD Unavailable Unavailabl Danny Lopes MD Unavailable [phone] Gayle Arce APRN, PUZZLE ASSEMBLER-C Unavailable [phone] Ti Bonilla MD Primary Care Provider Mendel Shah DPM Unavailable [phone] Reason for Visit * Reason Onset Date Comments Lab Results 08/12/2023 Encounter Details Date Type Department Care Team ([facility] Contact Info) Description 08/12/2023 Telephone [facility] [address] [place] [address] Gayle Arce APRN, PUZZLE ASSEMBLER-C [address] 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 documented in this encounter Plan of Treatment Upcoming Encounters Date Type Department Care Team (Late st Contact Info) Description 04/25/2024 11:00 AM MEDICAL COLLECTIONS Appointment [facility] [address] [facility] [place] [address] Ti Bonilla MD [address] [place] [phone] 05/23/2024 3:30 PM MEDICAL COLLECTIONS Office Visit [facility] [address] [place] [address] [place] [phone] Jyoti Escobar MD [address] [place] [address] documented as of this encounter Visit Diagnoses Not on filedocumented in this encounter Care Teams Timber Hand Relationship Specialty Start Date End Date Ti Bonilla MD [address] [place] [phone] PCP - General FAMILY PRACTICE 12/03/21 Evaristo Allan MD [place] Equipment Driver CARDIOVASCULAR DISEASE 08/19/16 Raul Santana MD CLINICAL CARDIAC ELECTROPHYSIOLOGY 06/16/17 Danny Blackwell MD [address] [place] [address] ORTHOPAEDIC SURGERY 05/01/19 Gayle Arce, CERTIFIED OPHTHALMIC TECHNOLOGIST, PUZZLE ASSEMBLER-C [address] [place] [address] [address] [place] [address] NURSE PRACTITIONER 03/03/20 Mendel Shah DPM [address] [place] [address] [place] [address] Consulting Physician PODIATRY/SURGERY 06/27/23 06/26/24 documented as of this encounter
--- OUTSIDE RECORDS SUMMARY | 2024-04-23 04:21 | XMS_ITS | Encounter Summary ---
Author Organization [facility] Address [address] [place] [address]. [place], [place] [address] [place] [address] Care Team Providers Care Leather Roller Name Role Phone Evaristo Allan MD Unavailable Unavailabl Raul Duran MD Unavailable Unavailabl e Danny Blackwell MD Unavailable [phone] Gayle Arce APRN, AIRWAY TRAFFIC CONTROLLER-C Unavailable Ti Bonilla MD Primary Care Provider Mendel Shah DPM Unavailable [phone] Reason for Referral * Imaging (Routine) - Closed Specialty Diagnoses / Procedures Referred By Charito ledbetter Referred To Contact RADIOLOGY Diagnoses Atypical atrial flutter ([facility]/HCC [facility]/HCC) Procedures XA AFLUTTER ABLATION Joshua Yin MD [address] [place] [address] Phone: tel: fax: Referral ID Status Reason Start Date Expiration Date Visits Re quested Visits Authorized [id number] Closed 10/31/2023 11/30/2024 1 1 Reason for Visit * Reason Onset Date Comments Schedule Procedure 10/31/2023 Encounter Details Date Type Department Care Team ([facility] st Contact Info) Description 10/31/2023 Telephone [facility] [address] [place] [address] Joshua Yin MD [address] [place] [address] Schedule Procedure Social History Tobacco Use Types [...] 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 Not [...] documented in this encounter Progress Notes * David Manriquez RN - 10/31/2023 12:05 PM CDT ATTEMPTED TO CALL THE PATIENT, LEFT , SENT LETTER IF PATIENT CALLS BACK PLEASE REVIEW THE FOLLOW ING INFORMATION AND CONFIRM ATYPICAL AFLUTTER ABLATION Pre Procedure Appt Date: OFFICE VISIT AND LABS 12/01 AT 130 PM Procedure Date: November AT 830 AM Arrival: 630 AM NPO: AFTER MIDNIGHT PRIOR TO THE PROCEDURE Meds: TAKE ALL MEDICATIONS THE MORNING OF THE PROCEDURE WITH SMALL SIPS OF WATER - DO NOT TAKE YOURLASIX THAT MORNING Labs: AT THE OFFICE VISIT ON 12/01 documented in this encounter Plan of Treatment Upcoming Encounters Date Type Department Care Team (Late st Contact Info) Description 04/25/2024 11:00 AM MOLDER BENCH Appointment [facility] [address] [place] [address] [place] [address] Ti Bonilla MD [address] [place] [phone] 05/23/2024 3:30 PM MOLDER BENCH Office Visit [facility] [address] [place] [address] [place] [address] Jyoti Escobar MD [address] [place] [phone] Pending Results Name Type Priority Associated Diagnoses Date /Time XA AFLUTTER ABLATION Cardiac Cath Routine Atypical atrial flutter (CMS/HCC HHS/HCC) 12/05/2023 10:31 AM CDT Scheduled Orders Name Type Priority Associated Diagnoses Orde r Schedule XA AFLUTTER ABLATION Cardiac Cath Routine Atypical atrial flutter (CMS/HCC HHS/[facility]) Expected: 12/05/2023, Expires: 10/30/2024 documented as of this encounter Results * Type & Screen ([facility] Epic Use Only) (12/02/2023 1:39 PM CDT) ABO/RH B POSITIVE 12/02/2023 2:27 PM CDT [facility] ANTIBODY SCREEN NEGATIVE 12/02/2023 2:27 PM CDT [facility] SAMPLE EXPIRATION 12/08/2023,2 359 12/02/2023 1:46 PM CDT [facility] 12/02/2023 1:39 PM CDT Joshua Yin MD BLOOD BANK TEST ORDERABLES Final Result [facility] [address] [place] [address], [id number] * (ABNORMAL) COMPREHENSIVE METABOLIC PANEL (12/02/2023 1:39 PM CDT) SODIUM S/P/B 138 136 - 145 MMOL/L 12/02/2023 2:09 PM CDT [facility] POTASSIUM S/P/B 4.7 3.5 - 5.1 MMOL/L 12/02/2023 2:09 PM CDT [facility] CHLORIDE S/P/B 102 97 - 115 MMOL/L 12/02/2023 2:09 PM CDT [facility] CO2 31.5 21.0 - 32.0 MMOL/L 12/02/2023 2:09 PM CDT [facility] GLUCOSE 70(L) 74 - 106 MG/DL 12/02/2023 2:09 PM CDT [facility] BUN 22(H) 7 - 18 MG/DL 12/02/2023 2:09 PM CDT [facility] CREATININE S/P/B 1.21 0.70 - 1.30 MG/DL 12/02/2023 2:09 PM CDT [facility] CALCIUM S/P/B 9.9 8.5 - 10.1 MG/DL 12/02/2023 2:09 PM CDT [facility] BILIRUBIN TOTAL S/P/B 0.3 0.2 - 1.0 MG/DL 12/02/2023 2:09 PM CDT [facility] ALKALINE PHOSPHATASE S/P/B 84 45 - 115 U/L 12/02/2023 2:09 PM CDT [facility] AST 28 15 - 37 U/L 12/02/2023 2:09 PM CDT [facility] ALT 41 16 - 61 U/L 12/02/2023 2:09 PM CDT [facility] TOTAL PROTEIN S/P/B 7.6 6.4 - 8.2 G/DL 12/02/2023 2:09 PM CDT [facility] ALBUMIN S/P/B 3.5 3.4 - 5.0 G/DL 12/02/2023 2:09 PM CDT [facility] ANION GAP 4.5 2.0 - 10.0 MMOL/L 12/02/2023 2:09 PM CDT [facility] OSMOLALITY (CALC) 288 MOSM/KG 024 2:09 PM CDT [facility] Comment:REFERENCE RANGE NOT ESTABLISHED GFR ESTIMATE 67(L) >90 ML/MIN/1. 73 M2 12/02/2023 2:09 PM CDT [facility] GFR NOTES GFR REFERENCE S: 12/02/2023 2:09 PM CDT [facility] Comment: THE ESTIMATED GFR IS CALCULATED [...] ml/min/1.73 m2 G5,KIDNEY FAILURE: <15 ml/min/1.73 m2 12/02/2023 1:39 PM CDT us Joshua Yin MD LABORATORY Final Result [facility] [address] [place] [address], [id number] * (ABNORMAL) CBC W/DIFF AUTOMATED (12/02/2023 1:39 PM CDT) [facility] WBC 8.90 4.00 - 10.80 x10'3/uL 12/02/2023 1:52 PM CDT [facility] RBC 4.66 4.50 - 6.10 x10'6/uL 12/02/2023 1:52 PM CDT [facility] HGB 12.6(L) 13.0 - 18.0 G/DL 12/02/2023 1:52 PM CDT [facility] HCT 40.6 37.0 - 52.0 % 12/02/2023 1:52 PM CDT [facility] MCV 87.1 78.0 - 100.0 FL 12/02/2023 1:52 PM CDT [facility] MCH 27.0 27.0 - 31.0 PG 12/02/2023 1:52 PM CDT [facility] MCHC 31.0(L) 33.0 - 36.0 G/DL 12/02/2023 1:52 PM CDT [facility] RDW 15.9(H) 11.5 - 14.5 % 12/02/2023 1:52 PM CDT [facility] PLT 276 150 - 350 x10'3/uL 12/02/2023 1:52 PM CDT [facility] MPV 10.7(H) 7.4 - 10.4 FL 12/02/2023 1:52 PM CDT [facility] ABS. NEUTROPHILS 5.37 1.60 - 8.30 x10'3/uL 12/02/2023 1:52 PM CDT [facility] ABS. LYMPHOCYTES 2.02 0.80 - 4.70 x10'3/uL 12/02/2023 1:52 PM CDT [facility] ABS. MONOCYTES 1.19 0.00 - 1.50 x10'3/uL 12/02/2023 1:52 PM CDT [facility] ABS. EOSINOPHILS 0.18 0.00 - 0.40 x10'3/uL 12/02/2023 1:52 PM CDT [facility] ABS. BASOPHILS 0.11 0.00 - 0.20 x10'3/uL 12/02/2023 1:52 PM CDT [facility] ABS. IMMATURE GRANULOCYTES 0.03 0.00 - 0.03 x10'3/uL 12/02/2023 1:52 PM CDT [facility] ABS. NUCLEATED RBC'S 0.00 0.00 - 0.01 x10'3/uL 12/02/2023 1:52 PM CDT [facility] 12/02/2023 1:39 PM CDT Joshua Yni MD LABORATORY Final Result [facility] [address] [place] [address], [id number] documented in this encounter Visit Diagnoses Diagnosis Atypical atrial flutter (CMS/HCC HHS/HCC)- Primary Atrial flutter documented in this encounter Care Teams Leather Roller Relationship Specialty Start Date End Date Ti Bonilla MD [address] [place] [phone] PCP - General FAMILY PRACTICE 12/03/21 Evaristo Allan MD [place] Leaflet Distributor CARDIOVASCULAR DISEASE 08/19/16 Raul Santana MD CLINICAL CARDIAC ELECTROPHYSIOLOGY 06/16/17 Danny Blackwell MD [address] [place] [address] ORTHOPAEDIC SURGERY 05/01/19 Gayle Arce APRN, AIRWAY TRAFFIC CONTROLLER-C [address] [facility] [address] [place] [address] NURSE PRACTITIONER 03/03/20 Mendel Shah DPM [address] [place] [address] Consulting Physician PODIATRY/SURGERY 06/27/23 06/26/24 documented as of this encounter
--- OUTSIDE RECORDS SUMMARY | 2024-04-23 04:21 | XMS_ITS | Encounter Summary ---
Author Organization [facility] Address [address] [place] [address]. [place] [address] [place] [address] Care Team Providers Care Garbage Person Name Role Phone Evaristo Allan MD Unavailable Unavailabl Raul Duran MD Unavailable Unavailabl Danny Lopes MD Unavailable [phone] Gayle Arce APRN, SEO ASSOCIATE-C Unavailable Ti Bonilla MD Primary Care Provider Mendel Shah DPM Unavailable [phone] Reason for Visit * Reason Onset Date Comments Follow Up Call 08/22/2023 Encounter Details Date Type Department Care Team ([facility] Contact Info) Description 08/22/2023 Telephone [facility] [address] [place] [address] Gayle Arce APRN, SEO ASSOCIATE-C [address] [facility] [address] [place] [address] Follow Up Call Social History Tobacco Use Types Packs/Day Years [...] 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 Patient verbalized understanding and thanked me for calling. * Cleveland Deras LPN - 08/23/2023 1:56 PM CDT I called to update him. He didn't answer. * Gayle Arce APRN, SEO ASSOCIATE-C - 08/23/2023 1:33 PM CDT Holter is sending out a monitor on 09/08/2023 due to monitor availability. * Gayle Arce APRN, NP-C - 08/23/2023 1:19 PM CDT Called holter department and left message. * Cleveland Deras LPN - 08/23/2023 12:42 PM CDT Evaristo called back our office. He said he still feels the cris as before. He still has chest pain and sob all day and everyday. He still takes Metoprolol 100 mg, 2 tablet (200 mg total), and Lasix 80 mg total wit potasium 20 meq daily. He asked about his two week heart monitor? He is going to [place] sometime next month. He still has not received this. I will send another message in other encounter for [facility] HRD ( 07/06) * Cleveland Deras LPN - 08/23/2023 9:46 AM CDT I called Evaristo @ [phone]. April (spouse) answered the phone instead. She said she was in the car and patient was at home. April will pass message to her to give us a call back today. * Gayle Arce APRN, NP-C - 08/22/2023 4:48 PM CDT Attempted to reach Evaristo for a follow-up on how he is feeling since we increased the metoprolol. Oswaldo sent to voicemail, and his voicemail box has not been set up. documented in this encounter Plan of Treatment Upcoming Encounters Date Type Department Care Team (Late st Contact Info) Description 04/25/2024 11:00 AM AGENCY SALES DIRECTOR Appointment [facility] [address] [place] [address] [place] [address] Ti Bonilla MD [address] [place] [phone] 05/23/2024 3:30 PM AGENCY SALES DIRECTOR Office Visit [facility] [address] [facility] [place] [address] Jyoti Escobar MD [address] [place] [address] documented as of this encounter Visit Diagnoses Not on filedocumented in this encounter Care Teams Garbage Person Relationship Specialty Start Date End Date Ti Bonilla MD [address] [place] [phone] PCP - General FAMILY PRACTICE 12/03/21 Evaristo Allan MD [place] Chemical Test Engineer CARDIOVASCULAR DISEASE 08/19/16 Raul Santana MD CLINICAL CARDIAC ELECTROPHYSIOLOGY 06/16/17 Danny Blackwell MD [address] [place] [address] ORTHOPAEDIC SURGERY 05/01/19 Gayle Arce APRN, SEO ASSOCIATE-C [address] [facility] [address] [place] [phone] NURSE PRACTITIONER 03/03/20 Mendel Shah DPM [address] [facility] [place] [address] Consulting Physician PODIATRY/SURGERY 06/27/23 06/26/24 documented as of this encounter
--- OUTSIDE RECORDS SUMMARY | 2024-04-23 04:21 | XMS_ITS | Encounter Summary ---
Author Organization [facility] Address [address] [place] [address]. [place] [address] [place] [address] Care Team Providers Care Cutting And Splicing Supervisor Name Role Phone Evaristo Allan MD Unavailable Unavailabl Raul Duran MD Unavailable Unavailabl Danny Lopes MD Unavailable [phone] Gayle Arce APRN, CHECKERING MACHINE ADJUSTER-C Unavailable Ti Bonilla MD Primary Care Provider Mendel Shah DPM Unavailable [phone] Reason for Visit * Reason Onset Date Comments Other 08/01/2023 Encounter Details Date Type Department Care Team ([facility] Contact Info) Description 08/01/2023 Telephone [facility] [address] [place] [address] Gayle Arce APRN, CHECKERING MACHINE ADJUSTER-C [address] 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 * Gayle Arce APRN, NP-C - 08/04/2023 5:16 PM CDT Attempted to reach Evaristo. Straight to voicemail, and voicemail has not bee set up. Unable to even leave a message. * Gayle Arce APRN, NP-C - 08/02/2023 5:45 PM CDT Attempted to reach Evaristo. Calls have been sent straight to voicemail, and no voicemail set up. I am a little unclear as to why the tests have been ordered. He had a nuclear stress test in February that did not reveal evidence of ischemia. When seen recently in clinic, he was having chest pain and shortness of breath, which were most likely related to his atrial arrhythmia and fast heart rates. We had increased his metoprolol and diuretics. He was then to have a monitor and ablation. Device clinic has been unable to contact the patient, so the monitor was not sent out. Unable to leave message, and this is the only phone number listed on his chart. * Kaylyn Donaldson LPN - 08/01/2023 1:17 PM CDT Pt calling stating that insurance will not cover testing this was testing ordered by his pcp CHECKERING MACHINE ADJUSTER . Pt states that he was told to call Gaylemildred castaneda and see if she could get this testing pre certed? This is for a echo a duplex carotid and 2 day stress test. He also states that he was not sched for his monitor. I see that [facility] has tried to reach him. Please advise if your willing to order testing . He states he will come in for an appt also as well if needed? documented in this encounter Plan of Treatment Upcoming Encounters Date Type Department Care Team (Late st Contact Info) Description 04/25/2024 11:00 AM [place] WEAPON SYSTEM OPERATOR [facility]ointment [facility] [place] [address] Ti Bonilla MD [address] [place] [phone] 05/23/2024 3:30 PM [place] WEAPON SYSTEM OPERATOR Office Visit [facility] [address] [place] [phone] Jyoti Escobar MD [address] [place] [address] documented as of this encounter Visit Diagnoses Not on filedocumented in this encounter Care Teams Cutting And Splicing Supervisor Relationship Specialty Start Date End Date Ti Bonilla MD [address] [place] [phone] PCP - General FAMILY PRACTICE 12/03/21 Evaristo Allan MD [place] [employer] Sr Engineer CARDIOVASCULAR DISEASE 08/19/16 Raul Santana MD CLINICAL CARDIAC ELECTROPHYSIOLOGY 06/16/17 Danny Blackwell MD [address] [place] [address] ORTHOPAEDIC SURGERY 05/01/19 Gayle Arce, BARBARA, CHECKERING MACHINE ADJUSTER-C [address] [facility] [address] [place] [phone] NURSE PRACTITIONER 03/03/20 Mendel Shah DPM [address] [place] [address] Consulting Physician PODIATRY/SURGERY 06/27/23 06/26/24 documented as of this encounter
--- OUTSIDE RECORDS SUMMARY | 2024-04-23 04:21 | XMS_ITS | Encounter Summary ---
Author Organization [facility] Address [address] [place] [address]. [place] [address] [place] [address] Care Team Providers Care Thread Dresser Name Role Phone Evaristo Allan MD Unavailable Unavailabl Raul Duran MD Unavailable Unavailabl e Danny Blackwell MD Unavailable [phone] Gayle Arce APRN, PROFESSOR OF INDUSTRIAL TECHNOLOGY-C Unavailable Ti Bonilla MD Primary Care Provider Mendel Shah DPM Unavailable [phone] Encounter Details Date Type Department Care Team (Late st Contact Info) Description 10/31/2023 Prep for Procedure [place] Assistant Football Coach Pre/Post [address] [place] [address] Joshua Yin MD [address] [place] [address] Social History Tobacco Use Types [...] 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 Not on [...] 11/17/2021 3:30 PM Angela Mora RN Active * Because of a physical, [...] st Contact Info) Description 04/25/2024 11:00 AM PARKING LOT CHAUFFEUR Appointment [facility] [address] [place] [address] Ti Bonilla MD [address] [place] [phone] 05/23/2024 3:30 PM [place] CHAUFFEUR Office Visit [facility] [address] [place] [phone] Jyoti Escobar MD [address] [place] [address] documented as of this encounter Visit Diagnoses Not on filedocumented in this encounter Care Teams Thread Dresser Relationship Specialty Start Date End Date Ti Bonilla MD [address] [place] [address] PCP - General FAMILY PRACTICE 12/03/21 Evaristo Allan MD [place] Translational Specialist CARDIOVASCULAR DISEASE 08/19/16 Raul Santana MD CLINICAL CARDIAC ELECTROPHYSIOLOGY 06/16/17 Danny Blackwell MD [address] [place] [address] ORTHOPAEDIC SURGERY 05/01/19 Gayle Arec APRN, PROFESSOR OF INDUSTRIAL TECHNOLOGY-C [address] [facility] [address] [place] [address] NURSE PRACTITIONER 03/03/20 Mendel Shah DPM [address] [place] [address] [place] [address] Consulting Physician PODIATRY/SURGERY 06/27/23 06/26/24 documented as of this encounter
--- OUTSIDE RECORDS SUMMARY | 2024-04-23 04:21 | XMS_ITS | Encounter Summary ---
Author Organization [facility] Address [address] [place] [address]. [place] [address] [place] [address] Care Team Providers Care Farm Appraiser Name Role Phone Evaristo Allan MD Unavailable Unavailabl Raul Duran MD Unavailable Unavailabl Danny Lopes MD Unavailable [phone] Gayle Arce APRN, HOME HEALTH SPEECH THERAPIST-C Unavailable [phone] Ti Bonilla MD Primary Care Provider Mendel Shah DPM Unavailable [phone] Reason for Visit * Reason Onset Date Comments Appointment Reminder 12/23/2023 Encounter Details Date Type Department Care Team ([facility] st Contact Info) Description 12/23/2023 Telephone [facility] [address] [place] [address] Gayle Arce APRN, HOME HEALTH SPEECH THERAPIST-C [address] [facility] [address] [place] [address] Appointment Reminder Social History Tobacco Use Types Packs/Day Years Used Date Smoking Tobacco: Never Smokeless Tobacco: Never Alcohol Use Standard Drinks/Week Comments Yes 0 (1 standard drink = 0.6 oz pur e alcohol) social [facility] Utilities Answer Date Recorded In the [...] any time in the past 12 m [facility], were you homeless or living in a [facility] (including now)? 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 [address] [facility] [place] [address] Ti Bonilla MD [address] [place] [phone] 05/23/2024 3:30 PM TUNNEL MUCKER Office Visit [facility] [address] [place] [phone] Jyoti Escobar MD [address] [place], [place] [phone] documented as of this encounter Goals Goal Patient Goal Type Associated Problems Recent Progress Patient-Stated? Author Safety ? Patient/family will have appropriate support at home upon discharge Lifestyle No Alex Lozano, sewing pattern layout technician - family caregiver with be involved in care transitions and discharge planning Lifestyle No Alex Lozano, RN Patient will return to prior living situation and remain independent in ADLs upon discharge from hospital Lifestyle No Alex Lozano RN documented as of this encounter Visit Diagnoses Not on filedocumented in this encounter Care Teams Farm Appraiser Relationship Specialty Start Date End Date Ti Bonilla MD [address] [place] [phone] PCP - General FAMILY PRACTICE 12/03/21 Evaristo Allan MD Leslie Repossession Agent CARDIOVASCULAR DISEASE 08/19/16 Raul Santana MD CLINICAL CARDIAC ELECTROPHYSIOLOGY 06/16/17 Danny Blackwell MD [address] [place], [place] [phone] ORTHOPAEDIC SURGERY 05/01/19 Gayle Arce APRN, HOME HEALTH SPEECH THERAPIST-C [address] [facility] [address] [place] [address] NURSE PRACTITIONER 03/03/20 Mendel Shah DPM [address] [place] [address] Consulting Physician PODIATRY/SURGERY 06/27/23 06/26/24 documented as of this encounter
--- OUTSIDE RECORDS SUMMARY | 2024-04-23 04:21 | XMS_ITS | Encounter Summary ---
Author Organization [facility] Address [address] [place] [address]. [place], [place] [address] [place] [address] Care Team Providers Care Investment Banking Analyst Name Role Phone Evaristo Allan MD Unavailable Unavailabl Raul Duran MD Unavailable Unavailabl Danny Lopes MD Unavailable [phone] Gayle Arce APRN, MEN'S LOCKER ROOM ATTENDANT-C Unavailable Ti Bonilla MD Primary Care Provider [phone] Mendel Shah DPM Unavailable [phone] Jyoti Escobar MD Unavailable [phone] Reason for Visit * Reason Onset Date Comments Record Request 03/22/2024 Encounter Details Date Type Department Care Team ([facility] Contact Info) Description 03/22/2024 Telephone [facility] [address] [place] [address] Joshua Yin MD [address] [place] [address] Record Request Social History Tobacco Use Types Packs/Day Years Used Date Smoking Tobacco: Never Smokeless Tobacco: Never Alcohol Use Standard Drinks/Week Comments Yes 0 (1 standard drink = 0.6 oz pur e alcohol) social [facility] Utilities Answer Date Recorded In [...] any time in the past 12 m [facility], were you homeless or living in a snf (including now)? 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 Wilner Siegel for 03/21/24 office visit. Put on Shannan's desk for review. ASSOCIATE documented in this encounter Plan of Treatment Upcoming Encounters Date Type Department Care Team (Late st Contact Info) Description 04/25/2024 11:00 AM CS ASSOCIATE Appointment [facility] [address] [facility] [place] [address] Ti Bonilla MD [address] [place] [phone] 05/23/2024 3:30 PM CS ASSOCIATE Office Visit [facility] [address] [place] [address] Jyoti Escobar MD [address] [place], [place] [address] documented as of this encounter Goals Goal Patient Goal Type Associated Problems Recent Progress Patient-Stated? Author Safety ? Patient/family will have appropriate support at home upon discharge Lifestyle No Alex Lozano, children's librarian - family caregiver with be involved in care transitions and discharge planning Lifestyle No Alex Lozano, RN Patient will return to prior living situation and remain independent in ADLs upon discharge from hospital Lifestyle No Alex Lozano RN documented as of this encounter Visit Diagnoses Not on filedocumented in this encounter Care Teams Investment Banking Analyst Relationship Specialty Start Date End Date Ti Bonilla MD [address] [place] [phone] PCP - General FAMILY PRACTICE 12/03/21 Evaristo Allan MD [place] Mixer Helper CARDIOVASCULAR DISEASE 08/19/16 Raul Santana MD CLINICAL CARDIAC ELECTROPHYSIOLOGY 06/16/17 Danny Blackwell MD [address] [place] [address] ORTHOPAEDIC SURGERY 05/01/19 Gayle Arce APRN, MEN'S LOCKER ROOM ATTENDANT-C [address] [facility] [address] [place] [phone] NURSE PRACTITIONER 03/03/20 Mendel Shah DPM [address] [place] [address] [place] [address] Consulting Physician PODIATRY/SURGERY 06/27/23 06/26/24 Jyoti Escobar MD [address] [place] [address] INTERVENTIONAL CARDIOLOGY 12/27/23 documented as of this encounter
--- OUTSIDE RECORDS SUMMARY | 2024-04-23 04:21 | XMS_ITS | Encounter Summary ---
Author Organization [facility] Address [address] [place] [address]. [place], [place] [phone] [place] [address] Care Team Providers Care Seaming Inspector Name Role Phone vEaristo Allan MD Unavailable Unavailabl Raul Duran MD Unavailable Unavailabl Danny Lopes MD Unavailable [phone] Gayle Arce APRN, [employer]OL POLICE OFFICER-C Unavailable [phone] Ti Bonilla MD Primary Care Provider Mendel Shah DPM Unavailable [phone] Encounter Details Date Type Department Care Team (Latest Contact Info) Description 09/09/2023 Travel Social History Tobacco Use Types Packs/Day [...] st Contact Info) Description 04/25/2024 11:00 AM FINANCE INSURANCE MANAGER Appointment [facility] [address] [place] [address] [place] [address] Ti Bonilla MD [address] [place] [phone] 05/23/2024 3:30 PM FINANCE INSURANCE MANAGER Office Visit [facility] [address] [facility] [place] [phone] Jyoti Escobar MD [address] [place] [address] documented as of this encounter Visit Diagnoses Not on filedocumented in this encounter Care Teams Seaming Inspector Relationship Specialty Start Date End Date Ti Bonilla MD [address] [place] [phone] PCP - General FAMILY PRACTICE 12/03/21 Evaristo Allan MD [facility] Chief Executive Officer CARDIOVASCULAR DISEASE 08/19/16 Raul Santana MD CLINICAL CARDIAC ELECTROPHYSIOLOGY 06/16/17 Danny Blackwell MD [address] [place] [address] ORTHOPAEDIC SURGERY 05/01/19 Gayle Arce, BUSINESS CONTINUITY PLANNING DIRECTOR, [employer]OL POLICE OFFICER-C [address] [facility] [address] [place] [address] NURSE PRACTITIONER 03/03/20 Mendel Shah DPM [address] [place] [address] Consulting Physician PODIATRY/SURGERY 06/27/23 06/26/24 documented as of this encounter
--- OUTSIDE RECORDS SUMMARY | 2024-04-23 04:21 | XMS_ITS | Encounter Summary ---
Author Organization [facility] Address [address] [place] [address]. [place], [place] [id number] [place] [id number] Care Team Providers Care Factory Clerk Name Role Phone Elza Allan MD Unavailable UnavailRaul Suresh MD Unavailable Unavailabl Danny Lopes MD Unavailable [phone] Gayle Arce APRN, MECHANICAL DEVELOPMENT ENGINEER-C Unavailable Ti Zamora MD Primary Care Provider Mendel Shah DPM Unavailable [phone] Jyoti Escobar MD Unavailable [phone] Reason for Visit * Reason Comments Follow Up Hospitalization Encounter Details Date Type Department Care Team ([facility] st Contact Info) Description 12/26/2023 9:00 AM CDT Office Visit [facility] [address] [place] [address] Gayle Arce APRN, MECHANICAL DEVELOPMENT ENGINEER-C [address] [facility] [place] [address] [place] [phone] Follow Up (Hospitalization) Social History Tobacco Use Types Packs/Day Years Used Date Smoking Tobacco: Never Smokeless Tobacco: Never Alcohol Use Standard Drinks/Week Comments Yes 0 (1 standard drink = 0.6 oz pur e alcohol) social [facility] Utilities Answer Date Recorded In the past [...] any time in the past 12 m [facility], were you homeless or living in a care home (including now)? 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 Not on file Not on file documented as of this encounter Last Filed Vital Signs Vital Sign Reading Time Taken Comments Blood Pressure 120/84 12/26/2023 9:23 AM CDT Pulse 100 12/26/2023 9:23 AM CDT Temperature - - Respiratory Rate 18 12/26/2023 9:23 AM CDT Oxygen Saturation 93% 12/26/2023 9:23 AM CDT Inhaled Oxygen Concentration - - Weight 135.8 kg (299 lb 6.4 oz) 12/26/2023 9:23 AM CDT Height 177.8 cm (5' 10 ) 12/26/2023 9:23 AM CDT Body Mass Index 42.96 12/26/2023 9:23 AM CDT documented in this encounter Functional Status * Are you [...] Mirza LPN Active documented in this encounter Patient Instructions * Patient Instructions* Gayle Arce APRN, NP-C - 12/26/2023 9:00 AM CDT We will contact you to schedule an appointment in [place] with Dr. Escobar in 6 months. I will send a pulmonology referral to [facility]. Continue current medications. Call if you gain more than 5 lbs in a week. Labs to recheck kidneys. documented in this encounter Progress Notes * Gayle Arce APRN, NP-C - 12/26/2023 9:00 AM CDT FROM: Gayle Arce APRN, NP-C, collaborating physician Jyoti Escobar M.D. RE: Elza Mckeon : 1960 Reason for Visit: Follow Up (Hospitalization) History of Present Illness: Mr. Mckeon is a pleasant 63-year-old male seen in the cardiology clinic today for a six month followup visit. He has a history of coronary artery disease s/p OCC MED PHYSICIAN PCI on 03/24/18, atrial fibrillation s/p ablation in 2016, hypertension, hyperlipidemia, diabetes, and sleep apnea. He was seen last springwith complaints of shortness of breath, lightheadedness, and fluid retention. He was found to have a recurrence of atrial flutter. He underwent an atrial flutter ablation on 12/05/2023. He had a subsequent hospitalization on 12/08/2023 for an exacerbation of congestive heart failure. His echocardiogram revealed LVEF was 55-60% with mild RV enlargement. He was discharged home with oxygen, which he re ports has made a significant difference. He has occasional chest discomfort. He states the most recent occurrence occurred at night and wokehim up from sleep. It was a sternal pain. He did not take any nitroglycerin. He denies any chest pain during the day. He does have shortness of breath upon exertion. His activity is limited. He is wearing 2 L of oxygen, and 3 L when out in public. He denies any overt symptoms of congestive heart failure such as paroxysmal nocturnal dyspnea, orthopnea, or pedal edema. He reports good CPAP compliance. He has occasional palpitations, improved since his ablation. He has lightheadedness if rising too quickly or standing for prolonged periods. He tells me that his blood pressure was 60-70 mmHg systolic at his PCP last week. He denies any syncope. He denies signs and symptoms of CVA or TIA, but hehas been having headaches. He seems to be tolerating his present medications well without reported side effects. He denies signs of bleeding. Evaluation during the clinic visit included an EKG which confirmed the presence of sinus tachycardia rhythm at a rate of 100 beats per minute with a right bundle branch block. Recommendations/Plan: Mr. Mckeon has had issues with congestive heart failure aggravated by underlying atrial arrhythmias.He has now undergone his atrial flutter ablation, and appears to be in sinus rhythm today. He was diuresed during his recent hospital stay, and is relatively euvolemic upon exam despite what appears to be a 15 pound weight gain since his discharge. I do not believe this to be accurate. His weight is actually down 4 pounds since his last office visit. I suspect an underlying pulmonary issue due tohis need for oxygen. We will plan for referral to pulmonology. Continue diuretics and close monitoring seem most appropriate at the present time. I have recommended the following to Mr. Mckeon: Diastolic Heart Failure. His recent echocardiogram noted an LVEF 55-60%. He does not appear to be significantly fluid overloaded upon exam. He will continue his current dose of furosemide. He was started on Jardiance during his hospitalization. I have given him an order for a BMP to be drawn to reassess his renal function and potassium. He will continue to weigh himself daily, and call the officeif he gains more than 5 pounds in a week. He should minimize his dietary sodium and avoid NSAIDs. CAD. His chest pain is atypical. He underwent a nuclear stress test in February 2023 that did not reveal evidence of ischemia. He did have a mild troponin elevation during his recent hospitalization,which was attributed to demand ischemia. His left ventricular systolic function has actually improved. I have refilled his nitroglycerin. If he continues to have symptoms, we could consider starting antianginal therapy. I have also refilled his famotidine. Atrial Fibrillation/Flutter. He appears to be in sinus rhythm in the office today. His heart rate is still fast despite high-dose beta-francesca therapy. He has a follow-up with electrophysiology soon.He is anticoagulated with Eliquis. Hypertension. His blood pressure is well-controlled in the office today. He reports issues with hypotension recently. He is not hypotensive in the office today. We will continue his current medications. Hyperlipidemia. He is currently treated with atorvastatin denies reported side effects. I have sentin a refill of his medication. An LDL less than 70 is recommended. His most recent lipid panel from02/23/2023 revealed a total cholesterol 128, LDL 75, HDL 33, triglycerides 99. If his LDL increases on his next lipid panel, I would recommend advancing statin therapy. We will plan to see Mr. Mckeon in six months. With Dr. Allan's recent senior living, I will have himestablish care with Dr. Escobar. I have encouraged him to contact me in the meantime should he haveany questions or problems. Medications: Current Outpatient Medications: amitriptyline 100 MG tablet, Take 1 tablet (100 mg total) by mouth nightly at bedtime., Disp: , Rfl: aspirin 81 MG chewable tablet, Chew 1 tablet (81 mg total) by mouth daily., Disp: , Rfl: atorvastatin (LIPITOR) 40 MG tablet, Take 0.5 tablets (20 mg total) by mouth nightly at bedtime., Disp: 45 tablet, Rfl: 3 ELIQUIS 5 MG tablet, Take 1 tablet (5 mg total) by mouth 2 (two) times daily., Disp: , Rfl: empagliflozin (JARDIANCE) 10 MG tablet, Take 1 tablet (10 mg total) by mouth daily., Disp: 90 tablet, Rfl: 3 famotidine (PEPCID) 40 MG tablet, Take 1 tablet (40 mg total) by mouth 2 (two) times daily., Disp: 180 tablet, Rfl: 3 furosemide (LASIX) 40 MG tablet, take one tablet by mouth twice a day, Disp: 120 tablet, Rfl: 0 gabapentin (NEURONTIN) 400 MG capsule, Take 1 capsule (400 mg total) by mouth 3 (three) times daily., Disp: , Rfl: insulin glargine (LANTUS) 100 UNIT/ML injection (PEN), Inject 50 Units into the skin nightly at bedtime., Disp: , Rfl: lisinopril (PRINIVIL) 10 MG tablet, Take 1 tablet (10 mg total) by mouth daily., Disp: , Rfl: metFORMIN 850 MG tablet, Take 1 tablet (850 mg total) by mouth 3 (three) times daily., Disp: , Rfl: metoprolol succinate ER (TOPROL-XL) 200 MG 24 hr tablet, take one tablet by mouth twice a day, Disp: 180 tablet, Rfl: 0 nitroglycerin (NITROSTAT) 0.4 MG SL tablet, Place 1 tablet (0.4 mg total) under the tongue every 5 (five) minutes as needed for Chest Pain., Disp: 25 tablet, Rfl: 0 NOVOLOG FLEXPEN 100 UNIT/ML injection (PEN), Inject 50 Units as directed 3 (three) times daily before meals., Disp: , Rfl: OZEMPIC, 0.25 OR 0.5 MG/DOSE, 2 MG/3ML injection (PEN), Inject 0.25 mg into the skin every 7 days. Every sat, Disp: , Rfl: potassium chloride CR (KLOR-CON M) 20 MEQ tablet, take one tablet by mouth daily, Disp: 30 tablet, Rfl: 4 traMADol 50 MG tablet, Take 1 tablet (50 mg total) by mouth 3 (three) times a day., Disp: , Rfl: Continuous Glucose Glue Bone Crusher (FREESTYLE LI 3 READER) Device, Inject 1 Device into the skin as needed (DM)., Disp: , Rfl: Continuous Glucose Sensor (FREESTYLE LI 3 SENSOR) Misc, Inject 1 Device into the skin as needed., Disp: , Rfl: Continuous Glucose Transmitter (DEXCOM G6 TRANSMITTER) Misc, Inject 1 Device into the skin as needed (DM)., Disp: , Rfl: OXYGEN CONCENTRATOR SUPPLY, DME,, 1 Device by Nasal route continuous. Pt to use 2l o2 per nasal cannula. Pt may use a poc with 2l o2 per nasal cannula., Disp: 1 Device, Rfl: 99 TRUEPLUS PEN NEEDLES 31G X 8 MM Misc, , Disp: , Rfl: Review of patient's allergies indicates: Allergen Reactions Tetracyclines & Related Other (see comment) Blisters in the mouth Doxycycline Other (see comment) and Rash Blisters in the mouth Past Medical History: Diagnosis Date Abnormal stress test Arthritis 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 Coronary artery disease Diabetes ([facility] HHS/HCC) 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, limited to breakdown of skin ([facility] HHS/HCC) Fatigue GERD (gastroesophageal reflux disease) Headache Hyperlipidemia Hypertension has had elevated B/P readings Kidney stone SARAI on CPAP Paroxysmal atrial fibrillation (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 HENT: Negative for new or significant hearing loss. Eyes: Negative for blurred vision and double vision. Respiratory: Positive for shortness of breath. Negative for cough and snoring. Cardiovascular: See HPI. Positive for palpitations and light-headedness. Gastrointestinal: Negative for blood in stool and melena. Genitourinary: Negative for dysuria. Musculoskeletal: Negative for myalgias and new or worsening joint stiffness/pain. Skin: Negative for rash. Neurological: Negative for tingling/numbness and focal weakness. Endo/Heme/Allergies: Negative for new or significant bruising/bleeding and polydipsia. Psychiatric/Behavioral: Negative for depression and new or significant memory loss. Vitals: 12/26/23 0923 BP: 120/84 Patient Position: Sitting BP Location: Right arm Pulse: 100 Weight: 135.8 kg (299 lb 6.4 oz) Height: 1.778 m (5' 10 ) Body mass index is 42.96 kg/m??. Cardiac Exam Rate/Rhythm: Regular rhythm. Tachycardia present. PMI: Pulses: Normal pulses. Dorsalis pedis pulses are 2+ on the right side and 2+ on the left side. Posterior tibial pulses are 2+ on the right side and 2+ on the left side. Heart Sounds: Normal heart sounds. Normal S1 sounds. Normal S2 sounds. No gallop present. No S3. NoS4. Murmurs: No murmur present Edema left: 0. Edema Right: 0. Physical Exam Constitutional: No distress. Healthy Appearance. HENT: Oropharynx clear. Eyes: Pupils equal, round, and reactive to light. Conjunctivae normal. Neck: Neck supple. No JVD. Abdomen: Abdomen soft. Bowel sounds normal. No distension. No tenderness. No abdominal bruit present. Pulmonary: Effort normal. Breath sounds normal. Oxygen per nasal cannula. Skin: Dry. Warm. No rash. No jaundice. No cyanosis. No clubbing. No xanthoma. Musculoskeletal: No kyphosis. Normal ROM. Neurological: Alert. Oriented x 3. Appropriate mood and affect. Comments: Diagnoses/Impression: 1. Chronic diastolic heart failure ([facility] HHS/HCC) 2. Coronary artery disease involving umkumi[place] coronary artery of umkumiut heart, unspecified whether angina present 3. Paroxysmal atrial fibrillation ([facility] HHS/HCC) 4. Essential (primary) hypertension 5. Hyperlipidemia, mixed 6. FPC use of drug BASIC METABOLIC PANEL Referring Provider: No ref. provider found PCP: TI ZAMORA MD * Shanon Harris LPN - 12/26/2023 9:00 AM CDT Referral Placed documented in this encounter Plan of Treatment Upcoming Encounters Date Type Department Care Team (Late st Contact Info) Description 04/25/2024 11:00 AM PILOT PLANT OPERATOR Appointment [facility] [address] [place] [address] Ti Zamora MD [address] [place] [address] 05/23/2024 3:30 PM PILOT PLANT OPERATOR Office Visit [facility] [place] [address] Jyoti Escobar MD [address] [place] [address] Scheduled Orders Name Type Priority Associated Diagnoses Orde r Schedule BASIC METABOLIC PANEL Lab Routine accountant systems use of drug Expected: 12/26/2023, Expires: 12/25/2024 documented as of this encounter Goals Goal Patient Goal Type Associated Problems Recent Progress Patient-Stated? Author Safety ? Patient/family will have appropriate support at home upon discharge Lifestyle No Alex Lozano, bowling ball assembler - family caregiver with be involved in care transitions and discharge planning Lifestyle No Alex Loznao, RN Patient will return to prior living situation and remain independent in ADLs upon discharge from hospital Lifestyle No Alex Lozano, RN documented as of this encounter Procedures Procedure Name Priority Date/Time Associated Diagnosis Comments ELECTROCARDIOGRAM (NON MIDMARK ACQUIRED) Routine 12/26/2023 9:32 AM CDT Coronary artery disease involving umkumi[place] coronary artery of [place] heart, unspecified whether angina present Hyperlipidemia, mixed accountant systems use of drug documented in this encounter Results * ELECTROCARDIOGRAM (12/26/2023 9:32 AM CDT) 12/26/2023 9:32 AM CDT Narrative [facility] - 01/04/2024 1:52 PM CDT ? [facility] ?[address], [place] ??[address] ? Test Date: ?2023-12-26 Pat Name: ? ELZA MCKEON ? Department: ?? 105 ? Room: ? Gender: ? Male ? Fly Worker: ?? msf : ?1960 ? Requested By: ABDULKADIR DOWNING Order Number: [id number] ?Reading MD: ?? Beckipapa Nuñez ? Measurements Intervals ?[place] ? Rate: ? 100 ?P: ? [place]: ? 0 ?QRS: ?37 QRSD: ? 118 ?T: ?-11 QT: ? 352 ? QTc: ?454 ? Interpretive Statements ATRIAL FIBRILLATION WITH RAPID VENTRICULAR RESPONSE RIGHT BUNDLE BRANCH BLOCK Procedure Note Becki Nuñez MD - 01/04/2024 [facility], [facility] [address] [place] [address] Test Date: 2023-12-26 Pat Name: [facility] Department: 105 Room: Gender: Male Fly Worker: : 1960 Requested By: ABDULKADIR DOWNING Order Number: [id number] Reading MD: Becki Nuñez Measurements Intervals [place] Rate: 100 P: [place]: 0 QRS: 37 QRSD: 118 T: -11 QT: 352 QTc: 454 Interpretive Statements ATRIAL FIBRILLATION WITH RAPID VENTRICULAR RESPONSE RIGHT BUNDLE BRANCH BLOCK us Abdulkadir Downing MD PROCEDURES-ORDERABLE NO CHARG E Final Result [facility] documented in this encounter Visit Diagnoses Diagnosis Chronic diastolic heart failure ([facility] HHS/[facility])- Primary Chronic diastolic heart failure Coronary artery disease involving [place] coronary artery of [place] heart, unspecified whether angina present Paroxysmal atrial fibrillation ([facility] HHS/HCC) Atrial fibrillation Essential (primary) hypertension Unspecified essential hypertension Hyperlipidemia, mixed Mixed hyperlipidemia FPC use of drug Encounter for long-term (current) use of other medications documented in this encounter Care Teams Factory Clerk Relationship Specialty Start Date End Date Ti Zamora MD [address] [place] [phone] PCP - General FAMILY PRACTICE 12/03/21 Elza Allan MD [place] Research Intern CARDIOVASCULAR DISEASE 08/19/16 Raul Santana MD CLINICAL CARDIAC ELECTROPHYSIOLOGY 06/16/17 Danny Blackwell MD [address] [place], [place] [id number] ORTHOPAEDIC SURGERY 05/01/19 Gayle Arce APRN, MECHANICAL DEVELOPMENT ENGINEER-C [address] [facility] [address] [phone] NURSE PRACTITIONER 03/03/20 Mendel Shah DPM [facility] [place] [address] Consulting Physician PODIATRY/SURGERY 06/27/23 06/26/24 Jyoti Escobar MD [address] [place], [place] [address] INTERVENTIONAL CARDIOLOGY 12/27/23 documented as of this encounter
--- OUTSIDE RECORDS SUMMARY | 2024-04-23 04:21 | XMS_ITS | Encounter Summary ---
Author Organization [facility] Address [address] [place] [address]. [place], [place] [id number] [place] [address] Care Team Providers Care Press Operator Meat Name Role Phone Evaristo Allan MD Unavailable Unavailabl Raul Duran MD Unavailable Unavailabl Danny Lopes MD Unavailable [phone] Gayle Arce APRN, AMBULANCE OPERATIONS SUPERVISOR-C Unavailable [phone] Ti Zamora MD Primary Care Provider [phone] Mendel Shah DPM Unavailable [phone] Jyoti Escobar MD Unavailable [phone] Reason for Referral * Imaging (Routine) - Closed Specialty Diagnoses / Procedures Referred By Charito ledbetter Referred To Contact RADIOLOGY Diagnoses Voiding dysfunction Procedures US BLADDER Ti Zamora MD [address] [place] [phone] Phone: tel: fax: Referral ID Status Reason Start Date Expiration Date Visits Re quested Visits Authorized [id number] Closed 03/07/2024 03/07/2025 1 1 SFORCE TRAINER Reason for Visit * Imaging (Routine) - Closed Specialty Diagnoses / Procedures Referred By Contac t Referred To Contact RADIOLOGY Diagnoses Voiding dysfunction Procedures US BLADDER Ti Zamora MD [address] [place] [phone] Phone: tel: fax: Referral ID Status Reason Start Date Expiration Date Visits Re quested Visits Authorized [id number] Closed 03/07/2024 03/07/2025 1 1 Encounter Details Date Type Department Care Team (Latest Contact Info) Description 03/20/2024 7:43 AM SALESFORCE TRAINER - 03/20/2024 11:59 PM SALESFORCE TRAINER Hospital Encounter [facility] [address] [place] [address] Ti Zamora MD [address] [place] [phone] Discharge Disposition: Home or Self Care (Routine Discharge) Social History Tobacco Use Types Packs/Day Years Used Date Smoking Tobacco: Never Smokeless Tobacco: Never Alcohol Use Standard Drinks/Week Comments Yes 0 (1 standard drink = 0.6 oz pur e alcohol) social [facility] Utilities Answer Date Recorded In the past 12 months has [email or web address], gas, oil, or water [employer] threatened to shut off services in your [...] any time in the past 12 m [facility], were you homeless or living in a alf (including now)? 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 Answer Date of Assessment Author Status Yes 12/08/2023 12:56 PM MIKKIT Charlotte Mirza LPN Active * Do you have difficulty dressing or bathing? Answer Date of Assessment Author Status No 12/08/2023 12:56 PM MIKKIT Charlotte Mirza LPN Active * Because of [...] Zapata LPN Active documented in this encounter Medications [...] bedtime. 45 tablet 3 12/26/2023 Continuous Glucose Senior Accounts Payable Clerk (FREESTYLE LI 3 READER) Device Inject 1 [...] 09/13/2019 OXYGEN CONCENTRATOR SUPPLY, DME,Indications:CH F exacerbation ([facility]) 1 Device by Nasal route continuous. Pt [...] 5-BEVEL PEN NEEDLES 29G X 12.7MM Misc 02/17/2024 TRUEPLUS PEN NEEDLES 31G X 8 MM Misc 01/19/2021 documented as of this encounter Plan of Treatment Upcoming Encounters Date Type Department Care Team (Late st Contact Info) Description 04/25/2024 11:00 AM SALESFORCE TRAINER Appointment [facility] [place] [address] Ti Zamora MD [address] [place] [phone] 05/23/2024 3:30 PM SALESFORCE TRAINER Office Visit [facility] [address] [place] [phone] Jyoti Escobar MD [address] [place] [phone] documented as of this encounter Goals Goal Patient Goal Type Associated Problems Recent Progress Patient-Stated? Author Safety ? Patient/family will have appropriate support at home upon discharge Lifestyle No Alex Lozano, rn gynecology - family caregiver with be involved in care transitions and discharge planning Lifestyle No Alex Lozano, RN Patient will return to prior living situation and remain independent in ADLs upon discharge from hospital Lifestyle No Alex Lozano RN documented as of this encounter Procedures Procedure Name Priority Date/Time Associated Diagnosis Comments US BLADDER Routine 03/20/2024 9:01 AM SALESFORCE TRAINER Voiding dysfunction documented in this encounter Results * US BLADDER (03/20/2024 9:01 AM SALESFORCE TRAINER) Anatomical Region Laterality Modality Renal Ultrasound 03/20/2024 9:00 AM SALESFORCE TRAINER Impressions 03/20/2024 9:02 AM SALESFORCE TRAINER IMPRESSION: 1. No urinary bladder mass or calculus demonstrated. 2. Bladder volumes as described. Ordered By: TI ZAMORA Interpreted By: Matteo Buenrostro MD, 03/20/2024 9:00 AM Narrative 03/20/2024 9:02 AM SALESFORCE TRAINER [address] [place] [address] Examination: Ultrasound of the urinary bladder. Exam time: 0830 hours. Clinical history: Voiding dysfunction. Comparison: None. Technique: Grayscale and color Doppler images. Findings: Bilateral ureteral jets are demonstrated. No urinary bladder mass or calculus is demonstrated. The calculated prevoid bladder volume is approximately 116 mL. The calculated post void bladder volume is approximately 48 mL. Procedure Note Matteo Buenrostro MD - 03/20/[address] [place] [address] Examination: Ultrasound of the urinary bladder. Exam [...] Ti Zamora MD ULTRASOUND Final Resul t documented in this encounter Visit Diagnoses Diagnosis Voiding dysfunction Unspecified disorder of urethra and urinary tract documented in this encounter Care Teams Press Operator Meat Relationship Specialty Start Date End Date Ti Zamora MD [address] [place] [phone] PCP - General FAMILY PRACTICE 12/03/21 Evaristo Allan MD [employer] Controller CARDIOVASCULAR DISEASE 08/19/16 Raul Santana MD CLINICAL CARDIAC ELECTROPHYSIOLOGY 06/16/17 Danny Blackwell MD [address] [place], [place] [phone] ORTHOPAEDIC SURGERY 05/01/19 Gayle Arce APRN, AMBULANCE OPERATIONS SUPERVISOR-C [address] [place] [address] [phone] NURSE PRACTITIONER 03/03/20 Mendel Shah DPM [address] [place] [address] [place] [address] Consulting Physician PODIATRY/SURGERY 06/27/23 06/26/24 Jyoti Escobar MD [address] [place] [address] INTERVENTIONAL CARDIOLOGY 12/27/23 documented as of this encounter
--- OUTSIDE RECORDS SUMMARY | 2024-04-23 04:21 | XMS_ITS | Encounter Summary ---
Author Organization [facility] Address [address] [place] [address]. 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 Not on file Not [...] st Contact Info) Description 04/25/2024 11:00 AM VETERANS ADVISER Appointment [facility] [address] [place] [address] [place] [address] Ti Bonilla MD [address] [place] [phone] 05/23/2024 3:30 PM VETERANS ADVISER Office Visit [facility] [address] [place] [phone] Jyoti Escobar MD [address] [place] [address] documented as of this encounter Visit Diagnoses Not on filedocumented in this encounter Care Teams Dinker Relationship Specialty Start Date End Date Ti Bonilla MD [address] [place] [phone] PCP - General FAMILY PRACTICE 12/03/21 Evaristo Allan MD [facility] Specialist CARDIOVASCULAR DISEASE 08/19/16 Raul Santana MD CLINICAL CARDIAC ELECTROPHYSIOLOGY 06/16/17 Danny Blackwell MD [address] [place] [address] ORTHOPAEDIC SURGERY 05/01/19 Gyale Arce, SHOE STICKS REPAIRER, EDUCATIONAL TECHNOLOGY SPECIALIST-C [address] [facility] [address] [place] [address] NURSE PRACTITIONER 03/03/20 Mendel Shah DPM [address] [place] [address] Consulting Physician PODIATRY/SURGERY 06/27/23 06/26/24 documented as of this encounter
--- OUTSIDE RECORDS SUMMARY | 2024-04-23 04:21 | XMS_ITS | Encounter Summary ---
Author Organization [facility] Address [address] [place] [address]. [place] [address] [place] [address] Care Team Providers Care Flight Attendant Ramp Name Role Phone Evaristo Allan MD Unavailable Unavailabl Raul Duran MD Unavailable Unavailabl Danny Lopes MD Unavailable [phone] Gayle Arce APRN DIE STAMPING PRESS OPERATOR-C Unavailable [phone] Ti Bonilla MD Primary Care Provider Mendel Shah DPSallie Unavailable [phone] Reason for Visit * Reason Onset Date Comments Appointment Reminder 12/01/2023 Encounter Details Date Type Department Care Team ([facility] Contact Info) Description 12/01/2023 Telephone [facility] [address] [place] [address] Shannan Lay, DIE STAMPING PRESS OPERATOR [address] [facility] [address]. 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 No answer / No voicemail documented in this encounter Plan of Treatment Upcoming Encounters Date Type Department Care Team (Late st Contact Info) Description 04/25/2024 11:00 AM CREDIT CARD CONTROL CLERK [facility]ointment [facility] [address] [facility] [address] [place] [address] Ti Bonilla MD [address] [place] [phone] 05/23/2024 3:30 PM CREDIT CARD CONTROL CLERK Office Visit [facility] [address] [place] [phone] Jyoti Escobar MD [address] [place] [address] documented as of this encounter Visit Diagnoses Not on filedocumented in this encounter Care Teams Flight Attendant Ramp Relationship Specialty Start Date End Date Ti Bonilla MD [address] [place] [phone] PCP - General FAMILY PRACTICE 12/03/21 Evaristo Allan MD [place] Corporate Librarian CARDIOVASCULAR DISEASE 08/19/16 Raul Santana MD CLINICAL CARDIAC ELECTROPHYSIOLOGY 06/16/17 Danny Blackwell MD [address] [place] [address] ORTHOPAEDIC SURGERY 05/01/19 Gayle Arce, SALES AND SERVICE ADVISOR, DIE STAMPING PRESS OPERATOR-C [address] [place] [address] [address] [place] [address] NURSE PRACTITIONER 03/03/20 Mendel Shah DPM [facility] [place] [address] Consulting Physician PODIATRY/SURGERY 06/27/23 06/26/24 documented as of this encounter
--- OUTSIDE RECORDS SUMMARY | 2024-04-23 04:21 | XMS_ITS | Encounter Summary ---
Author Organization [facility] Address [address] [place] [address]. [place] [address] [place] [address] Care Team Providers Care Pot Room Tapper Name Role Phone Evaristo Allan MD Unavailable Unavailabl Raul Duran MD Unavailable Unavailabl Danny Lopes MD Unavailable [phone] Gayle Arce APRN, DRESSAGE INSTRUCTOR-C Unavailable Ti Bonilla MD Primary Care Provider Mendel Shha DPM Unavailable [phone] Reason for Visit * Reason Onset Date Comments Holter Monitor 09/08/2023 * Imaging (Routine) - Closed Specialty Diagnoses / Procedures Referred By Conttianna t Referred To Contact Cardiology Diagnoses Atypical atrial flutter ([facility]) Procedures CLINIC - [address] [facility] Alfredo Gonsales PA-C [address] [place] [address] Phone: tel: fax: Referral ID Status Reason Start Date Expiration Date Visits Re quested Visits Authorized [id number] Closed 06/30/2023 06/29/2024 1 1 Encounter Details Date Type Department Care Team ([facility] st Contact Info) Description 09/08/2023 7:30 AM CDT Telephone 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 [address] [address] Ti Bonilla MD [address] [place] [phone] 05/23/2024 3:30 PM TOOL GRINDER OPERATOR EXTERNAL Office Visit [facility] [address] [phone] Jyoti Escobar MD [address] [place] [address] documented as of this encounter Procedures Procedure Name Priority Date/Time Associated Diagnosis Comments MOBILE CONTINUOUS TELEMETRY Routine 10/08/2023 6:49 AM CDT Atypical atrial flutter ([facility]) documented in this encounter Results * CLINIC - [address] [facility] - Today (10/08/2023 6:49 AM CDT) Narrative [facility] - 10/08/2023 6:49 AM CDT Ambulatory Distillery Miller Helper Report Patient Name: Evaristo Zelaya : 1960 [facility]: [id number] Date of Testin09/25/2023 Ordering Provider: MARKELL STEVENS M.D. Indication: Atrial flutter FINDINGS: The patient underwent cardiac monitoring for a total of 14 days, starting on 09/12/23 through 09/25/23. Approximately 88% of the monitored period produced readable data. BASELINE RHYTHM: The baseline rhythm was atrial flutter with heart rates ranging between 71 and 123 bmp, and average rate of 88 bpm. SINUS NODE FUNCTION: Sinus node function could not be assessed because of the presence of persistent atrial flutter. AV CONDUCTION: There was no evidence of significant A-V block. Ventricular pauses >3 seconds were not observed. ATRIAL ARRHYTHMIAS: Atrial flutter persisted throughout the monitored period and was associated with well-controlled ventricular response (HR>100 bpm was observed in 6% of the time). VENTRICULAR ARRHYTHMIAS: There were rare PVC's, with a burden of <1% of total heart beats. ?? Sustained ventricular tachycardia was not observed. SYMPTOMS: The patient reported symptoms of dyspnea on 4 occasions, which correlated with atrial flutter at 80-100 bpm. SUMMARY: 1. Atrial flutter persisted throughout the monitored period and was associated with well-controlled ventricular response. 2. Symptoms correlated with atrial flutter at 80-100 bpm. Signed MARKELL STEVENS MD 10/12/2023 us Alfredo Gonsales PA-C CV VASCULAR ORDERABLES Fin al Result [facility] documented in this encounter Visit Diagnoses Diagnosis Atypical atrial flutter (CMS/HCC HHS/HCC) Atrial flutter documented in this encounter Care Teams Pot Room Tapper Relationship Specialty Start Date End Date Ti Bonilla MD [address] [place] [phone] PCP - General FAMILY PRACTICE 12/03/21 Evaristo Allan MD [place] [employer] Horticultural Specialty Grower CARDIOVASCULAR DISEASE 08/19/16 Raul Santana MD CLINICAL CARDIAC ELECTROPHYSIOLOGY 06/16/17 Danny Blackwell MD [address] [place] [address] ORTHOPAEDIC SURGERY 05/01/19 Gayle Arce APRN, DRESSAGE INSTRUCTOR-C [address] [facility] [address] [place] [address] NURSE PRACTITIONER 03/03/20 Mendel Shah DPM [address] [place] [address] [place] [address] Consulting Physician PODIATRY/SURGERY 06/27/23 06/26/24 documented as of this encounter
--- OUTSIDE RECORDS SUMMARY | 2024-04-23 04:21 | XMS_ITS | Encounter Summary ---
Author Organization [facility] System Address [address] [place] [address]. [place], [place] [address] [place] [address] Care Team Providers Care Cigarette Machine Filler Name Role Phone Evaristo Allan MD Unavailable Unavailabl Raul Duran MD Unavailable Unavailabl Danny Lopes MD Unavailable [phone] Gayle Arce APRN, OPERATIONS TRAINER-C Unavailable Ti Bonilla MD Primary Care Provider Mendel Shah DPM Unavailable [phone] Encounter Details Date Type Department Care Team (Latest Contact Info) Description 12/02/2023 1:30 PM CDT - 12/02/2023 11:59 PM CDT Hospital Encounter [facility] [address] [place], [place] [phone] Joshua Yin MD [address] [place] [phone] Discharge Disposition: Home or Self Care (Routine [...] 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 04/19/2023 Continuous Glucose Pediatrics Hospitalist (FREESTYLE LI 3 READER) Device Inject 1 [...] 3 (three) times daily before meals. 09/13/2019 OZEMPIC, 0.25 OR 0.5 MG/DOSE, 2 MG/3ML [...] 12/06/2020 4 furosemide (LASIX) 40 MG tablet take one tablet by mouth twice a day 60 tablet 10/24/2023 4 gabapentin (NEURONTIN) 400 MG capsule Take 1 capsule (400 mg total) by mouth 3 (three) times daily. 06/23/2023 4 LEVEMIR FLEXPEN 100 UNIT/ML PEN Inject 50 Units into the skin 3 (three) times daily. 03/01/2023 4 metoprolol succinate ER (TOPROL-XL) 200 MG 24 hr tablet take one tablet by mouth twice a day 60 tablet 1 09/15/2023 4 nitroglycerin 0.[address] [...] st Contact Info) Description 04/25/2024 11:00 AM FLIGHT ENGINEER MANAGER Appointment [facility] [address] [place] [address] Ti Bonilla MD [address] [place] [phone] 05/23/2024 3:30 PM FLIGHT ENGINEER MANAGER Office Visit [facility] [address] [place] [phone] Jyoti Escobar MD [address] [place] [phone] documented as of this encounter Procedures Procedure Name Priority Date/Time Associated Diagnosis Comments TYPE & SCREEN Routine 12/02/2023 1:39 PM CDT Atypical atrial flutter (CMS/HCC HHS/HCC) COMPREHENSIVE METABOLIC PANEL Routine 12/02/2023 1:39 PM CDT Atypical atrial flutter (CMS/HCC HHS/HCC) CBC W/DIFF AUTOMATED Routine 12/02/2023 1:39 PM CDT Atypical atrial flutter (CMS/HCC HHS/HCC) documented in this encounter Results * (ABNORMAL) CBC W/DIFF AUTOMATED (12/02/2023 1:39 PM CDT) WBC 8.90 4.00 - 10.80 x10'3/uL 12/02/2023 1:52 PM CDT [facility] RBC 4.66 4.50 - 6.10 x10'6/uL 12/02/2023 1:52 PM CDT [facility] HGB 12.6(L) 13.0 - 18.0 G/DL 12/02/2023 1:52 PM CDT [facility] HCT 40.6 37.0 - 52.0 % 12/02/2023 1:52 PM CDT [facility] MCV 87.1 78.0 - 100.0 FL 12/02/2023 1:52 PM CDT [facility] MCH 27.0 27.0 - 31.0 PG 12/02/2023 1:52 PM CDT [facility] MCHC 31.0(L) 33.0 - 36.0 G/DL 12/02/2023 1:52 PM CDT [facility] RDW 15.9(H) 11.5 - 14.5 % 12/02/2023 1:52 PM CDT [facility] PLT 276 150 - 350 x10'3/uL 12/02/2023 1:52 PM CDT [facility] MPV 10.7(H) 7.4 - 10.4 FL 12/02/2023 1:52 PM CDT [facility] ABS. NEUTROPHILS 5.37 1.60 - 8.30 x10'3/uL 12/02/2023 1:52 PM CDT [facility] ABS. LYMPHOCYTES 2.02 0.80 - 4.70 x10'3/uL 12/02/2023 1:52 PM CDT [facility] ABS. MONOCYTES 1.19 0.00 - 1.50 x10'3/uL 12/02/2023 1:52 PM CDT [facility] ABS. EOSINOPHILS 0.18 0.00 - 0.40 x10'3/uL 12/02/2023 1:52 PM CDT [facility] ABS. BASOPHILS 0.11 0.00 - 0.20 x10'3/uL 12/02/2023 1:52 PM CDT [facility] ABS. IMMATURE GRANULOCYTES 0.03 0.00 - 0.03 x10'3/uL 12/02/2023 1:52 PM CDT [facility] ABS. NUCLEATED RBC'S 0.00 0.00 - 0.01 x10'3/uL 12/02/2023 1:52 PM CDT [facility] 12/02/2023 1:39 PM CDT Joshua Yin MD LABORATORY Final Result [facility] [address] [place] [address], [id number] * (ABNORMAL) COMPREHENSIVE METABOLIC PANEL (12/02/2023 1:39 PM CDT) SODIUM S/P/B 138 136 - 145 MMOL/L 12/02/2023 2:09 PM CDT [facility] POTASSIUM S/P/B 4.7 3.5 - 5.1 MMOL/L 12/02/2023 2:09 PM CDT [facility] CHLORIDE S/P/B 102 97 - 115 MMOL/L 12/02/2023 2:09 PM CDT [facility] CO2 31.5 21.0 - 32.0 MMOL/L 12/02/2023 2:09 PM CDT [facility] GLUCOSE 70(L) 74 - 106 MG/DL 12/02/2023 2:09 PM CDT [facility] BUN 22(H) 7 - 18 MG/DL 12/02/2023 2:09 PM CDT [facility] CREATININE S/P/B 1.21 0.70 - 1.30 MG/DL 12/02/2023 2:09 PM CDT [facility] CALCIUM S/P/B 9.9 8.5 - 10.1 MG/DL 12/02/2023 2:09 PM CDT [facility] BILIRUBIN TOTAL S/P/B 0.3 0.2 - 1.0 MG/DL 12/02/2023 2:09 PM CDT [facility] ALKALINE PHOSPHATASE S/P/B 84 45 - 115 U/L 12/02/2023 2:09 PM CDT [facility] AST 28 15 - 37 U/L 12/02/2023 2:09 PM CDT [facility] ALT 41 16 - 61 U/L 12/02/2023 2:09 PM CDT [facility] TOTAL PROTEIN S/P/B 7.6 6.4 - 8.2 G/DL 12/02/2023 2:09 PM CDT [facility] ALBUMIN S/P/B 3.5 3.4 - 5.0 G/DL 12/02/2023 2:09 PM CDT [facility] ANION GAP 4.5 2.0 - 10.0 MMOL/L 12/02/2023 2:09 PM CDT [facility] OSMOLALITY (CALC) 288 MOSM/KG 024 2:09 PM CDT [facility] Comment:REFERENCE RANGE NOT ESTABLISHED GFR ESTIMATE 67(L) >90 ML/MIN/1. 73 M2 12/02/2023 2:09 PM CDT [facility] GFR NOTES GFR REFERENCE S: 12/02/2023 2:09 PM T [facility] Comment: THE ESTIMATED GFR [...] us Joshua Yin MD LABORATORY Final Result [facility] [address] [place] [address], [place] [phone] [id number] * Type & Screen ([facility] Epic Use Only) (12/02/2023 1:39 PM CDT) ABO/RH B POSITIVE 12/02/2023 2:27 PM CDT [facility] ANTIBODY SCREEN NEGATIVE 12/02/2023 2:27 PM CDT [facility] SAMPLE EXPIRATION 12/08/2023,2 359 12/02/2023 1:46 PM CDT [facility] 12/02/2023 1:39 PM CDT Joshua Yin MD BLOOD BANK TEST ORDERABLES Final Result Performing Organization Address [facility] Co de Phone Number [facility] [address] [place] [address], [phone] documented in this encounter Visit Diagnoses Diagnosis Atypical atrial flutter (CMS/HCC HHS/HCC) Atrial flutter documented in this encounter Care Teams Cigarette Machine Filler Relationship Specialty Start Date End Date Ti Bonilla MD [address] [place] [phone] PCP - General FAMILY PRACTICE 12/03/21 Evaristo Allan MD [place] [employer] Controlled Atmospheric Furnace CARDIOVASCULAR DISEASE 08/19/16 Raul Santana MD CLINICAL CARDIAC ELECTROPHYSIOLOGY 06/16/17 Danny Blackwell MD [address] [place] [address] ORTHOPAEDIC SURGERY 05/01/19 Gayle Arce, HOTEL BAGGAGE HANDLER, OPERATIONS TRAINER-C [address] [facility] [address] [place] [phone] NURSE PRACTITIONER 03/03/20 Mendel Shah DPM [address] [place] [address] Consulting Physician PODIATRY/SURGERY 06/27/23 06/26/24 documented as of this encounter
--- OUTSIDE RECORDS SUMMARY | 2024-04-23 04:21 | XMS_ITS | Encounter Summary ---
Author Organization [facility] Address [address] [place] [address]. [place], [place] [address] [place] [address] Care Team Providers Care Machine Installer Name Role Phone Evaristo Allan MD Unavailable Unavailabl Raul Duran MD Unavailable Unavailabl Danny Lopes MD Unavailable [phone] Gayle Arce APRN, VIDEO JOURNALIST-C Unavailable Ti Bonilla MD Primary Care Provider [phone] Mendel Shah DPM Unavailable [phone] Jyoti Escobar MD Unavailable [phone] Encounter Details Date Type Department Care Team (Late st Contact Info) Description 03/21/2024 Scan [facility] [address] [place] [address] Scanned, Doc Pccl Social History Tobacco Use Types Packs/Day Years Used Date Smoking Tobacco: Never Smokeless Tobacco: Never Alcohol Use Standard Drinks/Week Comments Yes 0 (1 standard drink = 0.6 oz pur e alcohol) social [facility] Utilities Answer Date Recorded In the [...] were you homeless or living in a long-term (including now)? 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 Author Safety ? Patient/family will have appropriate support at home upon discharge Lifestyle No Alex Lozano, member of the legislative council - family caregiver with be involved in care transitions and discharge planning Lifestyle No Alex Lozano, RN Patient will return to prior living situation and remain independent in ADLs upon discharge from hospital Lifestyle No Alex Lozano RN documented as of this encounter Visit Diagnoses Not on filedocumented in this encounter Care Teams Machine Installer Relationship Specialty Start Date End Date Ti Bonilla MD [address] [place] [phone] PCP - General FAMILY PRACTICE 12/03/21 Evaristo Allan MD [place] Consumer Lending Manager CARDIOVASCULAR DISEASE 08/19/16 Raul Santana MD CLINICAL CARDIAC ELECTROPHYSIOLOGY 06/16/17 Danny Blackwell MD [address] [place], [place] [phone] ORTHOPAEDIC SURGERY 05/01/19 Gayle Arce APRN, VIDEO JOURNALIST-C [address] [place] [address] [address] [place] [phone] NURSE PRACTITIONER 03/03/20 Mendel Shah, DPM [address] [place] [address] Consulting Physician PODIATRY/SURGERY 06/27/23 06/26/24 Jyoti Escobar MD [address] [place] [address] INTERVENTIONAL CARDIOLOGY 12/27/23 documented as of this encounter
--- OUTSIDE RECORDS SUMMARY | 2024-04-23 04:21 | XMS_ITS | Encounter Summary ---
Author Organization [facility] Address [address] [place] [address]. [place], [place] [address] [place] [address] Care Team Providers Care Surgeon Assistant Name Role Phone Elza Allan MD Unavailable Unavailabl Raul Duran MD Unavailable Unavailabl Danny Lopes MD Unavailable [phone] Gayle Arce APRN, NP-C Unavailable Ti Zamora MD Primary Care Provider Mendel Shah DPM Unavailable [phone] Jyoti Escobar MD Unavailable [phone] Reason for Visit * Reason Comments Follow Up Atrial Flutter Atrial Fibrillation Encounter Details Date Type Department Care Team ([facility] Contact Info) Description 02/29/2024 2:00 PM WHARF LABORER Office Visit [facility] [address] [place] [address] Nandini Salcido NP [address] [facility]. [address] [place] [address] Follow Up; Atrial Flutter; Atrial Fibrillation Social History Tobacco Use Types Packs/Day Years Used Date Smoking Tobacco: Never Smokeless Tobacco: Never Alcohol Use Standard Drinks/Week Comments Yes 0 (1 standard drink = 0.6 oz pur e alcohol) social C Utilities Answer Date Recorded In the past 12 months has [employer], gas, oil, or water [employer] threatened to shut off services in your [...] in the past 12 m [facility], were you homeless or living in a intermediate (including now)? 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 Not on file Not on file documented as of this encounter Last Filed Vital Signs Vital Sign Reading Time Taken Comments Blood Pressure 110/66 02/29/2024 1:50 PM WHARF LABORER Pulse 89 02/29/2024 1:50 PM WHARF LABORER ekg Temperature - - Respiratory Rate 18 02/29/2024 1:50 PM WHARF LABORER Oxygen Saturation 96% 02/29/2024 1:50 PM WHARF LABORER Inhaled Oxygen Concentration - - Weight 133.9 kg (295 lb 3.2 oz) 02/29/2024 1:50 PM WHARF LABORER Height 177.8 cm (5' 10 ) 02/29/2024 1:50 PM WHARF LABORER Body Mass Index 42.36 02/29/2024 1:50 PM WHARF LABORER documented in this encounter Functional Status * [...] Progress Notes * Nandini Salcido NP - 02/29/2024 2:00 PM CST Images from the original note were not included. Cardiac Electrophysiology Clinic Note PATIENT NAME: Elza Mckeon : 1960 REFERRING PROVIDER: No ref. provider found PCP: TI ZAMORA MD Reason for Visit Persistent atrial fibrillation and persistent atypical atrial flutter History of Present Illness Mr. Mckeon is a very pleasant 64-year-old male with a history of paroxysmal atrial fibrillation-status post catheter ablation [address] Santana-status post redo catheter ablation 11/17/21-status post redo ablation 12/05/23, coronary artery disease-status post PCI, recurrent persistent atypical atrial flutter- status post catheter ablation 11/17/21-status post catheter ablation of persistent roof-dependent left atrial flutter 12/05/23, hypertension, obstructive sleep apnea on CPAP, chronic kidney disease, hyperlipidemia, diabetes, and osteoarthritis. He presents in clinic today with his for follow up. He reports having 2 episodes of epigastricchest pain that is sharp in nature. He took a nitroglycerin each time and had relief. He reports having shortness of breath especially when he doesn't forgets his oxygen. He reports being unable to empty his bladder. He thought his lasix wasn't working. He has a follow up with [facility] pulmonary in May in [place]. He denies palpitations, dizziness, lightheadedness, presyncope, or syncope. ECG SR with incomplete RBBB at 89 bpm. Diagnosis Persistent roof-dependent left atrial flutter recurred. S/P Catheter ablation 12/05/23. Paroxysmal atrial fibrillation. S/P catheter ablation 05/19/[address] Santana. S/P redo catheterablation 11/17/21 and 12/05/23. No evidence of recurrence since then. Recurrent persistent perimitral left atrial flutter. S/P Catheter ablation 11/17/21. Incomplete RBBB. Nonischemic cardiomyopathy. LVEF 45-50% by echo 02/24/23. LVEF 55-60% by echo 12/08/23. Chronic systolic heart failure. Recent hospitalization for pulmonary edema. On home oxygen. CAD. S/P PCI. SARAI on CPAP. Hypertension. Diabetes. CKD. Chronic anticoagulation with Eliquis for stroke prevention. No known history of stroke. Recommendations He will discuss his bladder emptying with his PCP. He will contact [facility] to see if he can be seen sooner in [place]. Gayle Arce NP came to evaluate him for chest pain. Continue Eliquis for stroke prevention. Continue Toprol for rate control. We will see him in follow up in 6 months, sooner if needed. Medications Current Outpatient Medications: gabapentin (NEURONTIN) 600 MG tablet, , Disp: , Rfl: HUMALOG KWIKPEN 100 UNIT/ML injection (PEN), , Disp: , Rfl: TRUEPLUS 5-BEVEL PEN NEEDLES 29G X 12.7MM [facility], , Disp: , Rfl: amitriptyline 100 MG tablet, Take 1 tablet (100 mg total) by mouth nightly at bedtime., Disp: , Rfl: aspirin 81 MG chewable tablet, Chew 1 tablet (81 mg total) by mouth daily., Disp: , Rfl: atorvastatin (LIPITOR) 40 MG tablet, Take 0.5 tablets (20 mg total) by mouth nightly at bedtime., Disp: 45 tablet, Rfl: 3 Continuous Glucose Diesel Bus Mechanic (FREESTYLE LI 3 READER) Device, Inject 1 Device into the skin as needed (DM)., Disp: , Rfl: Continuous Glucose Sensor (FREESTYLE LI 3 SENSOR) Misc, Inject 1 Device into the skin as needed., Disp: , Rfl: Continuous Glucose Transmitter (DEXCOM G6 TRANSMITTER) Misc, Inject 1 Device into the skin as needed (DM)., Disp: , Rfl: ELIQUIS 5 MG tablet, [...] a day, Disp: 120 tablet, Rfl: 0 insulin glargine (LANTUS) 100 UNIT/ML injection (PEN), [...] times daily before meals., Disp: , Rfl: OXYGEN CONCENTRATOR SUPPLY, DME,, 1 Device by Nasal route continuous. Pt to use 2l o2 per nasal cannula. 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, limited to breakdown of skin (CMS/HCC HHS/HCC) Fatigue GERD (gastroesophageal reflux disease) Headache Hyperlipidemia Hypertension has had elevated B/P readings Kidney stone SARAI on CPAP Paroxysmal atrial fibrillation (CMS/HCC HHS/HCC) PONV (postoperative nausea and vomiting) Past Surgical History: Procedure Laterality Date CARDIAC CATHETERIZATION 01/04/2018 occluded prox RCA w/well developed [id number] collaterals lvef 55-60% CARDIAC CATHETERIZATION 11/13/2018 FRACTURE SURGERY HC TOTAL KNEE REVISION Right 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 HENT: Negative for hearing loss, nosebleeds, sinus pain and tinnitus. Eyes: Negative for blurred vision and double vision. Respiratory: Negative for cough, hemoptysis and shortness of breath. Cardiovascular: Positive for chest pain. Negative for palpitations and leg swelling. Gastrointestinal: Negative for abdominal pain, blood in stool, heartburn, melena and nausea. Genitourinary: Negative for dysuria, hematuria and urgency. Incomplete emptying. Musculoskeletal: Negative for joint pain and myalgias. Skin: Negative for rash. Neurological: Negative for dizziness, loss of consciousness, weakness and headaches. Endo/Heme/Allergies: Does not bruise/bleed easily. Psychiatric/Behavioral: Negative for depression. The patient is not nervous/anxious. Physical Examination Vitals: 02/29/24 1350 BP: 110/66 Pulse: 89 Resp: 18 SpO2: 96% Physical Exam Constitutional: General: He is not [...] motion. Cervical back: Neck supple. Right lower leg: No edema. Left lower leg: No edema. Skin: General: Skin is warm and dry. Neurological: Mental Status: He is alert and oriented to person, place, and time. Psychiatric: Behavior: Behavior normal. Thought Content: Thought content normal. Signed NANDINI SALCIDO NP 02/29/2024 F LABORER documented in this encounter Plan of Treatment Upcoming Encounters Date Type Department Care Team (Late st Contact Info) Description 04/25/2024 11:00 AM WHARF LABORER Appointment [facility] [address] [place] [address] [place] [address] Ti Zamora MD [address] [place] [phone] 05/23/2024 3:30 PM WHARF LABORER Office Visit [facility] [place] [address] Jyoti Escobar MD [address] [place] [phone] documented as of this encounter Goals Goal Patient Goal Type Associated Problems Recent Progress Patient-Stated? Author Safety ? Patient/family will have appropriate support at home upon discharge Lifestyle No Alex Lozano, manufacturing finance manager - family caregiver with be involved in care transitions and discharge planning Lifestyle No Alex Lozano, RN Patient will return to prior living situation and remain independent in ADLs upon discharge from hospital Lifestyle No Alex Lozano, RN documented as of this encounter Procedures Procedure Name Priority Date/Time Associated Diagnosis Comments ELECTROCARDIOGRAM (NON MIDMARK ACQUIRED) Routine 02/29/2024 1:57 PM WHARF LABORER Paroxysmal atrial fibrillation (CMS/HCC HHS/HCC) Atypical atrial flutter (CMS/HCC HHS/HCC) documented in this encounter Results * ELECTROCARDIOGRAM (02/29/2024 1:57 PM WHARF LABORER) 02/29/2024 1:57 PM WHARF LABORER Narrative [facility] - 03/08/2024 4:06 PM WHARF LABORER ? [facility] ?[address] [place], [place] ??[address] ? Test Date: ?2024-02-29 Pat Name: ? ELZA MCKEON ? Department: ?? 105 ? Room: ? Gender: ? Male ? Concrete Finisher Apprentice: ?? dp : ?1960 ? Requested By: JOSHUA YIN Order Number: [id number] ?Reading MD: ?? Nasaraiah Nallamothu ? Measurements Intervals ?Donnelly ? Rate: ? 89 ? P: ?34 IN: ? 143 ?QRS: ?78 QRSD: ? 102 ?T: ?49 QT: ? 360 ? QTc: ?440 ? Interpretive Statements SINUS RHYTHM LOW QRS VOLTAGE IN PRECORDIAL LEADS INCOMPLETE RIGHT BUNDLE BRANCH BLOCK F LABORER Procedure Note Carlos Sheth MD - 03/08/2024 [facility], [facility] [address] [place] [address] Test Date: 2024-02-29 Pat Name: [facility] Department: 105 Room: Gender: Male Concrete Finisher Apprentice: daniel : 1960 Requested By: JOSHUA YIN Order Number: [id number] Reading MD: Reyna Measurements Intervals Donnelly Rate: 89 P: 34 IN: 143 QRS: 78 QRSD: 102 T: 49 QT: 360 QTc: 440 Interpretive Statements SINUS RHYTHM LOW QRS VOLTAGE IN PRECORDIAL LEADS INCOMPLETE RIGHT BUNDLE BRANCH BLOCK F LABORER us Joshua Yin MD PROCEDURES-ORDERABLE NO CHARGE F inal Result [facility] documented in this encounter Visit Diagnoses Diagnosis Atypical atrial flutter (CMS/HCC HHS/HCC)- Primary Atrial flutter Paroxysmal atrial fibrillation (CMS/HCC HHS/HCC) Atrial fibrillation documented in this encounter Care Teams Surgeon Assistant Relationship Specialty Start Date End Date Ti Zamora MD [address] [place] [phone] PCP - General FAMILY PRACTICE 12/03/21 Elza Allan MD [place] Certified Ophthalmic Technician CARDIOVASCULAR DISEASE 08/19/16 Raul Santana MD CLINICAL CARDIAC ELECTROPHYSIOLOGY 06/16/17 Danny Blackwell MD [address] [place] [address] ORTHOPAEDIC SURGERY 05/01/19 Gayle Arce APRN, SURVEY RESEARCH TEACHER-C [address] [place] [address] [phone] NURSE PRACTITIONER 03/03/20 Mendel Shah DPM [address] [place] [address] Consulting Physician PODIATRY/SURGERY 06/27/23 06/26/24 Jyoti Escobar MD [address] [place] [address] [phone] INTERVENTIONAL CARDIOLOGY 12/27/23 documented as of this encounter
--- OUTSIDE RECORDS SUMMARY | 2024-04-23 04:21 | XMS_ITS | Encounter Summary ---
Author Organization [facility] Address [address] [place] [address]. [place] [address] [place] [address] Care Team Providers Care Thermostat Repairer Name Role Phone Elza Allan MD Unavailable Unavailabl Raul Duran MD Unavailable Unavailabl Danny Lopes MD Unavailable [phone] Gayle Arce APRN, SHINGLE INSPECTOR-C Unavailable Ti Bonilla MD Primary Care Provider Mendel Shah DPM Unavailable [phone] Encounter Details Date Type Department Care Team (Late st Contact Info) Description 12/01/2023 Orders Only [facility] [place] [address] [place] [address] Joshua Yin MD [address] [place] [address] Social History Tobacco Use Types [...] 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 Not on file [...] Mancuso RN Active documented in this encounter Plan of Treatment Upcoming Encounters Date Type Department Care Team (Late st Contact Info) Description 04/25/2024 11:00 AM FURNACE FEEDER Appointment [facility] [address] [place] [address] Ti Bonilla MD [address] [place] [phone] 05/23/2024 3:30 PM FURNACE FEEDER Office Visit [facility] [address] [place] [phone] Jyoti Escobar MD [address] [place] [address] documented as of this encounter Results * ELECTROCARDIOGRAM (12/02/2023 1:53 PM CDT) 12/02/2023 1:53 PM CDT Narrative [facility] - 12/13/2023 10:09 AM CDT ? [facility], [facility] ?[address], [place] ??[address] ? Test Date: ?2023-12-02 Pat Name: ? ELZA MCKEON ? Department: ?? 105 ? Room: ? Gender: ? Male ? Refuge Worker: ?? ssb : ?1960 ? Requested By: JOSHUA LAWA Order Number: [id number] ?Reading MD: ?? Leonid Khan ? Measurements Intervals ?[place] ? Rate: ? 92 ? P: ? [place]: ? 0 ?QRS: ?81 QRSD: ? 109 ?T: ?43 QT: ? 389 ? QTc: ?483 ? Interpretive Statements ATRIAL FLUTTER/TACHYCARDIA WITH ABERRANT CONDUCTION OR VENTRICULAR PREMATURE COMPLEXES LOW QRS VOLTAGE IN PRECORDIAL LEADS INCOMPLETE RIGHT BUNDLE BRANCH BLOCK MODERATE ST DEPRESSION Procedure Note Leonid Khan MD - 12/13/2023 [facility], [facility] [address] [place] [address] Test Date: 2023-12-02 Pat Name: [facility] Department: [facility] Room: Gender: Male Refuge Worker: alena : 1960 Requested By: JOSHUA YIN Order Number: [id number] Reading MD: Leonid Khan Measurements Intervals [place] Rate: 92 P: [place]: 0 QRS: 81 QRSD: 109 T: 43 QT: 389 QTc: 483 Interpretive Statements ATRIAL FLUTTER/TACHYCARDIA WITH ABERRANT CONDUCTION OR VENTRICULARPREMATURE COMPLEXES LOW QRS VOLTAGE IN PRECORDIAL LEADS INCOMPLETE RIGHT BUNDLE BRANCH BLOCK MODERATE ST DEPRESSION us Joshua Yin MD PROCEDURES-ORDERABLE NO CHARGE F inal Result [facility] documented in this encounter Visit Diagnoses Diagnosis Paroxysmal atrial fibrillation (CMS/HCC HHS/HCC)- Primary Atrial fibrillation Atypical atrial flutter (CMS/HCC HHS/HCC)- Primary Atrial flutter Paroxysmal atrial fibrillation (CMS/HCC HHS/HCC) Atrial fibrillation documented in this encounter Care Teams Thermostat Repairer Relationship Specialty Start Date End Date Ti Bonilla MD [address] [place] [address] PCP - General FAMILY PRACTICE 12/03/21 Elza Allan MD [place] Electronic Gluing Machine Operator CARDIOVASCULAR DISEASE 08/19/16 Raul Santana MD CLINICAL CARDIAC ELECTROPHYSIOLOGY 06/16/17 Danny Blackwell MD [address] [place], [place] [phone] ORTHOPAEDIC SURGERY 05/01/19 Gayle Arce APRN, SHINGLE INSPECTOR-C [address] [facility] [address] [place] [phone] NURSE PRACTITIONER 03/03/20 Mendel Shah DPM [address] [place] [address] [place] [address] Consulting Physician PODIATRY/SURGERY 06/27/23 06/26/24 documented as of this encounter
--- OUTSIDE RECORDS SUMMARY | 2024-04-23 04:21 | XMS_ITS | Encounter Summary ---
Author Organization [facility] Address [address] [place] [address]. [place] [address] [place] [address] Care Team Providers Care Engraving Operator Name Role Phone Evaristo Allan MD Unavailable Unavailabl Raul Duran MD Unavailable Unavailabl Danny Lopes MD Unavailable [phone] Jolynn Arias APRN, CONTINUOUS STILL OPERATOR-C Unavailable Ti Bonilla MD Primary Care Provider Mendel Shah DPM Unavailable [phone] Reason for Visit * Reason Onset Date Comments Appointment Request 08/10/2023 Back in A-fi b Encounter Details Date Type Department Care Team ([facility] st Contact Info) Description 08/10/2023 Telephone [facility] [address] [place] [address] Jolynn Arais APRN, CONTINUOUS STILL OPERATOR-C [address] [facility] [address] [place] [address] Appointment Request (Back in A-fib) Social History Tobacco Use Types Packs/Day Years [...] 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 * Jolynn Arias APRN, NP-C - 08/12/2023 4:10 PM CDT Called Evaristo. He said he left his phone in the car. Requested he call holter, but he does not havea pen to write down the number. I will try to reach [facility] to contact him again now that he has hisphone. * Rin Larson MA - 08/12/2023 3:54 PM CDT Three attempts made today to contact patient on the [phone] no answer and no voicemail set up. * Jolynn Arias APRN, NP-C - 08/12/2023 3:23 PM CDTAddended by: JOLYNN ARIAS on: 08/12/2023 03:23 PM Modules accepted: Orders * Jolynn Arias APRN, NP-C - 08/12/2023 3:00 PM CDT Called PCP office to see if they had a different number. They have [phone]. They have the samenumber we have listed for his . Finally reached Evaristo. He tells me the other phone number is his old number. I will correct this in the system. He has been short of breath with palpitations, heart rates up to 150-200 bpm. He denies significant swelling. He does not believe furosemide dose needs adjusted. Explained all of our previous messages when we were trying to reach him. At this point, he does not need the appointment on Tuesday. I will contact the holter department to send out the monitor. He can increase his metoprololfrom 100 mg to 200 mg BID. He will then plan for the ablation as discussed with Dr. Yin's office. If he feels unwell prior to all this, he should proceed to the ER. He v/u. Called an left message with the holter department. * Jolynn Arias APRN, NP-C - 08/11/2023 6:11 PM CDT See note. Evaristo is coming back to clinic for afib. Nobody has been able to reach him for his monitor and ablation. Do you want me to switch this appt from me to you on Tuesday if he does come in? * Chelsea Garcia LPN - 08/11/2023 11:44 AM CDT Attempted to call patient, unable to leave message , voice mail box not set up . * Su Clay - 08/10/2023 4:06 PM CDT Pt called to schedule appt due to being back in A-fib. having to help him walk. Scheduled 08/15/23. He agreed. documented in this encounter Plan of Treatment Upcoming Encounters Date Type Department Care Team (Late st Contact Info) Description 04/25/2024 11:00 AM DRUG PURCHASER Appointment [facility] [address] [place] [address] Ti Bonilla MD [address] [place] [phone] 05/23/2024 3:30 PM DRUG PURCHASER Office Visit [facility] [address] [place] [phone] Jyoti Escobar MD [address] [place] [address] documented as of this encounter Visit Diagnoses Not on filedocumented in this encounter Care Teams Engraving Operator Relationship Specialty Start Date End Date Ti Bonilla MD [address] [place] [address] PCP - General FAMILY PRACTICE 12/03/21 Evaristo Allan MD [place] Pre Algebra Teacher CARDIOVASCULAR DISEASE 08/19/16 Raul Santana MD CLINICAL CARDIAC ELECTROPHYSIOLOGY 06/16/17 Danny Blackwell MD [address] [place] [address] ORTHOPAEDIC SURGERY 05/01/19 Jolynn Arias APRN, CONTINUOUS STILL OPERATOR-C [address] [facility] [address] [place] [address] NURSE PRACTITIONER 03/03/20 Mendel Shah DPM [address] [place] [address] [place] [address] Consulting Physician PODIATRY/SURGERY 06/27/23 06/26/24 documented as of this encounter
--- OUTSIDE RECORDS SUMMARY | 2024-04-23 04:21 | XMS_ITS | Encounter Summary ---
Author Organization [facility] Address [address] [place] [address]. [place], [place] [phone] [place] [address] Care Team Providers Care Tool And Die Designer Name Role Phone Evaristo Allan MD Unavailable Unavailabl aRul Duran MD Unavailable Unavailabl Danny Lopes MD Unavailable [phone] Gayle Arce APRN, ENTRY LEVEL ACCOUNT MANAGER-C Unavailable Ti Bonilla MD Primary Care Provider Mendel Shah DPM Unavailable [phone] Jyoti Escobar MD Unavailable [phone] Reason for Visit * Reason Onset Date Comments Advice 02/29/2024 Encounter Details Date Type Department Care Team ([facility] st Contact Info) Description 02/29/2024 Telephone [facility] [address] [place] [address] Gayle Arce APRN, ENTRY LEVEL ACCOUNT MANAGER-C [address] [facility] [address] [place] [address] Advice Social History Tobacco Use Types Packs/Day Years [...] any time in the past 12 m [facility], were you homeless or living in a correction (including now)? 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 Zelaya briefly at his EP appointment. He was complaining of shortness of breath and chest discomfort. He is still on oxygen, and does not have an appointment with pulmonology until May. His weight has decreased, and he does not appear fluid overloaded upon exam today. He reports taking n itroglycerin on 2 occasions for sharp chest discomfort. The nitroglycerin did improve his symptoms.He has an appointment tomorrow with his PCP. At this point, he does appear to be doing well. He remains in sinus rhythm. His blood pressure is on the lower end. I encouraged him to see his PCP and also call pulmonology to see if they can see him sooner in [place]. If he continues to have chest discomfort and takes nitroglycerin, I asked him to call our office so that we can consider adding Imdur. If we do this, I may need to adjust some of his other medications due to his lower blood pressures. He v/u. O ELECTRONICS TECHNICIAN documented in this encounter Plan of Treatment Upcoming Encounters Date Type Department Care Team (Late st Contact Info) Description 04/25/2024 11:00 AM RADIO ELECTRONICS TECHNICIAN Appointment [facility] [address] [place] [address] [place] [address] Ti Bonilla MD [address] [place] [phone] 05/23/2024 3:30 PM RADIO ELECTRONICS TECHNICIAN Office Visit [facility] [place] [phone] Jyoti Escobar MD [address] [place] [phone] documented as of this encounter Goals Goal Patient Goal Type Associated Problems Recent Progress Patient-Stated? Author Safety ? Patient/family will have appropriate support at home upon discharge Lifestyle No Alex Lozano, mechanical energy engineer - family caregiver with be involved in care transitions and discharge planning Lifestyle No Alex Lozano, RN Patient will return to prior living situation and remain independent in ADLs upon discharge from hospital Lifestyle No Alex Lozano, RN documented as of this encounter Visit Diagnoses Not on filedocumented in this encounter Care Teams Tool And Die Designer Relationship Specialty Start Date End Date Ti Bonilla MD [address] [place] [phone] PCP - General FAMILY PRACTICE 12/03/21 Evaristo Allan MD [place] Nanotechnology Engineering Technologist CARDIOVASCULAR DISEASE 08/19/16 Raul Santana MD CLINICAL CARDIAC ELECTROPHYSIOLOGY 06/16/17 Danny Blackwell MD [address] [place] [address] ORTHOPAEDIC SURGERY 05/01/19 Gayle Arce APRN, ENTRY LEVEL ACCOUNT MANAGER-C [address] [place] [address] [phone] NURSE PRACTITIONER 03/03/20 Mendel Shah DPM [address] [place] [address] Consulting Physician PODIATRY/SURGERY 06/27/23 06/26/24 Jyoti sEcobar MD [address] [place], [place] [address] INTERVENTIONAL CARDIOLOGY 12/27/23 documented as of this encounter
--- OUTSIDE RECORDS SUMMARY | 2024-04-23 04:21 | XMS_ITS | Encounter Summary ---
Author Organization [facility] Address [address] [place] [address]. [place], [place] [id number] [place] [id number] Care Team Providers Care Snake Charmer Name Role Phone Elza Allan MD Unavailable Unavailabl e Raul Santana MD Unavailable Unavailabl e Danny Blackwell MD Unavailable [phone] Gayle Arce APRN, HEALTH PROFESSIONAL-C Unavailable [phone] Ti Zamora MD Primary Care Provider [phone] Mendel Shah DPM Unavailable [phone] Reason for Referral * Imaging (Routine) - Closed Specialty Diagnoses / Procedures Referred By Contac t Referred To Contact RADIOLOGY Diagnoses Atypical atrial flutter (CMS/HCC HHS/HCC) Procedures XA AFLUTTER ABLATION Joshua Yin MD [address] [place] [address] Phone: tel: fax: Referral ID Status Reason Start Date Expiration Date Visits Re quested Visits Authorized [id number] Closed 10/31/2023 11/30/2024 1 1 Reason for Visit * Imaging (Routine) - Closed Specialty Diagnoses / Procedures Referred By Contac t Referred To Contact RADIOLOGY Diagnoses Atypical atrial flutter (CMS/HCC HHS/HCC) Procedures XA AFLUTTER ABLATION Joshua Yin MD [address] [place] [address] Phone: tel: fax: Referral ID Status Reason Start Date Expiration Date Visits Re quested Visits Authorized [id number] Closed 10/31/2023 11/30/2024 1 1 Encounter Details Date Type Department Care Team (Latest Contact Info) Description 12/05/2023 6:19 AM CDT - 12/05/2023 4:14 PM CDT Hospital Encounter [facility] Lab Pre/Post [address] [place] [address] Joshua Yin MD [address] [place] [id number] Discharge Disposition: Home or Self Care (Routine [...] 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 Not on file Not on file documented as of this encounter Last Filed Vital Signs Vital Sign Reading Time Taken Comments Blood Pressure 101/84 12/05/2023 7:00 AM CDT Pulse 87 12/05/2023 7:00 AM CDT Temperature 36.1 ??C (97 ??F) 12/05/2023 7:00 AM CDT Respiratory Rate 22 12/05/2023 7:00 AM CDT Oxygen Saturation 92% 12/05/2023 7:00 AM CDT Inhaled Oxygen Concentration - - Weight 137.3 kg (302 lb 11.1 oz) 12/05/2023 7:00 AM CDT Height 177.8 cm (5' 10 ) 12/05/2023 7:00 AM CDT Body Mass Index 43.43 12/05/2023 7:00 AM CDT documented in this encounter Functional [...] Mora RN Active documented in this encounter Discharge Summaries * Joshua Yin MD - 12/05/2023 10:31 AM CDT Discharge Summary PATIENT NAME: Elza Mckeon : 1960 REFERRING PROVIDER: Joshua Yin MD PCP: TI ZAMORA MD Admit Date: 12/05/2023 6:19 AM Discharge Date: 12/05/2023 Discharge Physician: JOSHUA YIN MD Discharge Diagnosis Recurrent persistent perimitral left atrial flutter. S/P Catheter ablation 11/17/21. Persistent roof-dependent left atrial flutter recurred. S/P Catheter ablation 12/05/23. Paroxysmal atrial fibrillation. S/P catheter ablation 05/19/[address] Santana. S/P redo catheterablation 11/17/21 and 12/05/23. No evidence of recurrence since then. Nonischemic cardiomyopathy. LVEF 45-50% by echo 02/24/23. Chronic systolic heart failure. CAD. S/P PCI. SARAI on CPAP. Hypertension. Diabetes. Chronic anticoagulation with Eliquis for stroke prevention. No known history of stroke. Hospital Course Mr. Mckeon is a very pleasant 63-year-old male with history of paroxysmal atrial fibrillation-statuspost catheter ablation [address] Santana-status post redo catheter ablation 11/17/21, coronary artery disease-status post PCI, recurrent persistent atypical atrial flutter-status post catheter ablation 11/17/21, hypertension, obstructive sleep apnea on CPAP, hyperlipidemia, diabetes, osteoarthritis, and coronary artery disease-status post PCI. On 12/05/2023, the patient underwent catheter ablation.Roof-dependent left atrial macroreentrant tachycardia was present at baseline and was successfully ablated. Reisolation of the right superior PV and LA posterior wall was also performed. The patient tolerated the procedure well without complications. The patient is being discharged today on her same home medications, and will be followed in clinic in 1-2 months and earlier as needed. Discharge Medications Medication List CONTINUE taking these medications Morning Afternoon Evening Bedtime As Needed amitriptyline 100 MG tablet Commonly known as: ELAVIL Take 1 tablet (100 mg total) by mouth nightly at bedtime. aspirin 81 MG chewable tablet Chew 1 tablet (81 mg total) by mouth daily. atorvastatin 40 MG tablet Commonly known as: LIPITOR Take 0.5 tablets (20 mg total) by mouth nightly at bedtime. Basaglar KwikPen 100 UNIT/ML injection (PEN) Inject 50 Units into the skin nightly at bedtime. Generic drug: insulin glargine Dexcom G6 Transmitter Misc Inject 1 Device into the skin as needed (DM). Eliquis 5 MG tablet Take 1 tablet (5 mg total) by mouth 2 (two) times daily. Generic drug: apixaban famotidine 40 MG tablet Commonly known as: PEPCID Take 1 tablet (40 mg total) by mouth 2 (two) times daily. FreeStyle Hazel 3 [facility] [place] Inject 1 Device into the skin as needed (DM). FreeStyle Hazel 3 Sensor Misc Inject 1 Device into the skin as needed. furosemide 40 MG tablet Commonly known as: LASIX take one tablet by mouth twice a day Signed by: Gayle rAce gabapentin 400 MG capsule Commonly known as: NEURONTIN Take 1 capsule (400 mg total) by mouth 3 (three) times daily. Levemir FlexPen 100 UNIT/ML PEN Inject 50 Units into the skin 3 (three) times daily. Generic drug: insulin detemir lisinopril 10 MG tablet Commonly known as: PRINIVIL Take 1 tablet (10 mg total) by mouth daily. metFORMIN 850 MG tablet Commonly known as: GLUCOPHAGE Take 1 tablet (850 mg total) by mouth 3 (three) times daily. metoprolol succinate ER 200 MG 24 hr tablet Commonly known as: TOPROL-XL take one tablet by mouth twice a day Signed by: Gayle Arce nitroglycerin 0.4 MG SL tablet Commonly known as: NITROSTAT Place 1 tablet (0.4 mg total) under the tongue every 5 (five) minutes as needed for Chest Pain. Signed by: Dr. Elza Allan NovoLOG FlexPen 100 UNIT/ML injection (PEN) Inject 50 Units as directed 3 (three) times daily before meals. Generic drug: insulin aspart Ozempic (0.25 or 0.5 MG/DOSE) 2 MG/3ML injection (PEN) Inject 0.25 mg into the skin every 7 days. Every sat Generic drug: semaglutide potassium chloride CR 20 MEQ tablet Commonly known as: KLOR-CON M take one tablet by mouth daily Signed by: Gayle Arce tamsulosin 0.4 MG Caps Commonly known as: FLOMAX Take 1 capsule (0.4 mg total) by mouth daily. traMADol 50 MG tablet Commonly known as: ULTRAM Take 1 tablet (50 mg total) by mouth 3 (three) times a day. TRUEplus Pen [place] 31G X 8 MM [facility] Generic drug: Insulin Pen Needle Signed JOSHUA YIN MD documented in this encounter Discharge Instructions * Discharge Instructions* Rossy Bautista RN - 12/05/2023 12:28 PM CDT Post Ablation Discharge Instructions What to Expect After the Procedure? - You may feel tired, slightly uncoordinated, and need additional sleep as a result of the medications you received during the procedure. - It's common to have soreness, mild swelling, and bruising at the puncture site in the groins. Youmay use cold packs and may take Tylenol if needed for discomfort. However, persistent pain (more than a few days) or increased swelling or bleeding are causes of concern, and if they do occur please notify your EP physician. - Some people experience palpitations while the heart is healing from ablation. This may feel like the heart is racing or skipping beats. If these symptoms do not resolve after a few days or if they become intolerable or persistent call your EP physician. - You may have some mild chest discomfort for the next few days. Most often, it hurts to take a deep breath or cough. This is due to the fluids you were given during your ablation. Symptoms of fluid retention would be swelling of the lower legs and feet, trouble breathing when walking or laying down, or weight gain over 3 ponds in a day. If you develop these symptoms, please call your EP physician. Your physician may choose to prescribe a water pill for a few days if needed. Activity Restrictions - You may resume non-strenuous activities including work as soon as you feel completely alert, usually by the next day. - Take is easy for a few days after your procedure. 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 - You should be able to resume all normal activities (gradually, as tolerated) and exercise after the first week. - Avoid heavy lifting (greater than 15-20 pounds), straining, heavy housework, strenuous activity, and exercise for 7 days after the procedure. - You may shower the following day after your procedure. Wash groin puncture sites daily with soap and water, but do not scrub, then pat dry. Do not soak in bathtub, hot tub, or swim for 7 days. Groin Wound Care - You will have puncture sites in one or both groins. During the procedure, thin flexible tubes (called catheters ) were inserted into blood vessels and threaded through the vein into the heart. - Puncture sites in the groins will heal naturally within a week. You may also notice a small knot at the site, which is a normal part of the healing process. - A small sterile bandage will cover the insertion site. You can remove the bandage the day after the procedure. - Do not apply lotions or powders to the incision area until the groin site is completely healed. - Check you incision sites daily for bleeding or infection. - Bruising is common. - Active bleeding or worsening swelling in the groin region is not expected and if it Occurs, please call your EP physician. If sever bleeding occurs, immediately lie Down and apply firm pressure over the site. If it cannot be controlled after 10 Minutes, call 911. - Small amounts of oozing may be controlled by applying direct pressure to the Site for 5-10 minutes. - Increase pain, swelling, redness, drainage, or fever can be a sign of infection. If you develop any of these problems, call you EP physician or seek immediate Medical attention. Call Immediately for the Following - Increasing pain, bleeding, or swelling at the groin wound area. - Increasing shortness of breath or chest pain. - Dizziness or fainting - Fever above 100.4 F. Take medications as directed. Future Appointments Your EP doctor's office will mail a letter for any future appointments. If you have any questions, please call [phone]. documented in this encounter Medications at Time of Discharge amitriptyline 100 MG tablet Take 1 tablet (100 mg total) by mouth nightly at bedtime. 09/10/2020 aspirin 81 MG chewable tablet Chew 1 tablet (81 mg total) by mouth daily. 04/19/2023 Continuous Glucose Master Lay Out Specialist (FREESTYLE HAZEL 3 READER) Device Inject 1 Device into the skin as needed (DM). 09/17/2023 Continuous Glucose Sensor (FREESTYLE HAZEL 3 SENSOR) Misc Inject 1 Device into [...] TRUEPLUS PEN NEEDLES [facility]G [facility] 01/19/2021 atorvastatin 40 MG tablet Take 0.5 [...] daily. 4 documented as of this encounter H&P Notes * Joshua Yin MD - 12/05/2023 7:03 AM CDT HISTORY AND PHYSICAL INTERVAL NOTE: I have reviewed [facility] History & Physical which was performed within the past 30 days. After examining Elza Mckeon, no change has occurred in the patient's condition since the H&P was completed. Informed Consent Discussion: Potential benefits, risks, and side effects of the patient's procedure/surgery; the likelihood of the patient achieving his or her goals; and any potential problems that might occur during recuperation were discussed with the patient/family/personal solar manufacturer's representative. Reasonable alternatives to the patient's proposed procedure/surgery including benefits, risks, and side effects related to the alternatives and the risks related to not receiving the proposed care were also discussed with the patient/family/personal solar manufacturer's representative. Questions were answered and the patient/family/personal solar manufacturer's representative verbalized understanding and desires to proceed. Source Note - Nandini Salcido NP - 12/02/2023 1:30 PM [...] control. Medications Current Outpatient Medications: Continuous Glucose Master Lay Out Specialist (FREESTYLE HAZEL 3 READER) Device, , Disp: , Rfl: Continuous Glucose Sensor (FREESTYLE HAZEL 3 SENSOR) Misc, , Disp: , Rfl: Continuous Glucose Transmitter (DEXCOM G6 TRANSMITTER) [facility], , Disp: , Rfl: LEVEMIR FLEXPEN 100 [...] TRUEPLUS PEN NEEDLES 31G X 8 MM [facility], , Disp: , Rfl: Allergies Review of patient's allergies indicates: Allergen Reactions Tetracyclines & Related Other (see comment) Blisters in the mouth Doxycycline Other (see comment) and Rash Blisters in the mouth Past History Past Medical History: Diagnosis Date Abnormal stress test Arthritis 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 Coronary artery disease Diabetes ([facility]/HCC HHS/HCC) 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, limited to breakdown of skin (CMS/HCC HHS/HCC) Fatigue GERD (gastroesophageal reflux disease) Headache Hyperlipidemia Hypertension has had elevated B/P readings Kidney stone SARAI on CPAP Paroxysmal atrial fibrillation ([facility]/HCC HHS/HCC) PONV (postoperative nausea and vomiting) Past Surgical History: Procedure Laterality Date CARDIAC CATHETERIZATION 01/04/2018 occluded prox RCA w/well developed [id number] collaterals lvef 55-60% CARDIAC CATHETERIZATION 11/13/2018 FRACTURE SURGERY HC TOTAL KNEE REVISION Right 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 Cardiac Electrophysiology Procedure Note Date of Procedure: 12/05/2023 Childcare Teacher: Joshua Yin MD Pre-Procedure Diagnosis: Atrial fibrillation. Atrial flutter. Procedures performed: Comprehensive electrophysiologic evaluation including transseptal catheterizations, insertion and repositioning of multiple electrode catheters with induction or attempted induction of an arrhythmia including left or right atrial pacing/recording when necessary, right ventricular pacing/recording when necessary, and His bundle recording when necessary with intracardiac catheter ablation of atrialfibrillation by pulmonary vein isolation [21428] Additional linear intracardiac catheter ablation of the left atrium for treatment of atrial fibrillation remaining after completion of pulmonary vein isolation [+ 22682] Intracardiac catheter ablation of a discrete mechanism of arrhythmia (left atrial tachycardia) which is distinct from the primary ablated mechanism, including repeat diagnostic maneuvers, to treat a spontaneous or induced arrhythmia [+ [id number]] Intracardiac echocardiography during therapeutic/diagnostic intervention, including imaging supervision and interpretation [+ 88906-59] Moderate (conscious) sedation. Post-Procedure Diagnosis: S/P catheter ablation for left atrial tachycardia. S/P catheter ablation for atrial fibrillation. Catheters/Sheaths Used: Decapolar 6-Fr decapolar catheter was introduced through a 7.5-Fr sheath under fluoroscopic guidance via the left femoral vein into the coronary sinus. AcuNav ICE catheter was introduced through a 9-Fr sheath under fluoroscopic guidance via the left femoral vein into the right atrium. Multipolar Halo7-EP catheter was advanced under fluoroscopic guidance via the left femoral vein forpacing and recording at the tricuspid annulus. Mini-basket catheter was introduced through a long deflectable sheath from right femoral vein into the left atrium through a transseptal puncture. A 3.5-mm irrigated-tip mapping/ablation catheter was introduced through a long deflectable sheath from the right femoral vein into the left atrium through a transseptal puncture. Sedation: I performed moderate (conscious) sedation (using Versed IV, Precedex IV, and Fentanyl IV) for a period longer than 30 minutes. I supervised and directed Myron FIGUEROA who assisted in monitoring patient'slevel of consciousness and physiological status and assisted in maintaining airway throughout the pr ocedure. Medications Administered: Epinephrine 2 mcg/min IV infusion. Heparin IV to maintain ACT >300seconds. Protamine IV. Baseline Intervals: Rhythm: AT. A-A: 295 ms. V-V: 720 ms. Arrhythmias Induced: Atypical left atrial flutter was present at baseline and was terminated by RF ablation. Atrial fibrillation was easily inducible terminated spontaneously. Mapping and Catheter Ablation of Atrial Flutter: The sheaths were introduced in the right and left femoral veins. Catheters were introduced to record the right atrium, coronary sinus, HIS bundle, and pulmonary veins, in addition to the mapping/ablation catheter. Left atrial access was achieved via two transseptal punctures using a [place]rough needle and longdeflectable sheath under ICE and fluoroscopy guidance and continuous pressure monitoring. Subsequently, mapping catheters were introduced into the left atrium. Anticoagulation was started with IV-hepa rin bolus before transseptal puncture and ACT was monitored throughout the procedure. Left atrial macroreentrant tachycardia present at baseline. Activation was performed using the Manfred catheter and Vobiia 3-D mapping system. The AT was mapped to a macroreentrant circuit utilizing the LA roof. Linear ablation across the LA roof was performed and successfully eliminated the tachycardia. Complete line of block was verified with pacing and activation mapping. Mapping and Catheter Ablation of Atrial Fibrillation: After termination of atrial flutter, atrial fibrillation was easily inducible. A deflectable-tip mapping/ablation catheter was maneuvered into position along the perimeter of each of the pulmonary vein after accessing the left atrium (see above). 3-D electroanatomic mapping was performed using Rhythmia electroanatomical mapping system to build a 3-D model of the left atrium, and used to facilitate mapping, and guide RF ablation and repositioning of catheters. Pulmonary vein potentials were mapped using a mini-basket catheter. At baseline, electrical reconnection of RSPV. All other veins were electrically isolated. RF lesions were delivered circumferentially around the antrum of each of the left superior pulmonary vein. Complete electrical isolation was achieved in all of the pulmonary veins, as confirmed by absence/dissociation of pulmonary vein potentials during atrial fibrillation using a circular catheter. Atrial fibrillation persisted even after electrical isolation of all PVs. Mapping of the LA posterior wall revealed a gap in the previous LA roof ablation line, with complete block of the previous LAinferoposterior ablation line. Therefore, additional linear ablation was performed across the left atrial roof targeting conduction gaps, which resulted in complete LA posterior wall isolation/box lesion. Bidirectional conduction block across the ablation lines was verified with activation mapping. Each application was set to power of 30-50 W, targeting 40-45 ??C, was continued for 3-10 sec. Remapping after 20 minutes reconfirmed electrical isolation of all PVs. Intracardiac Echo (ICE) Interpretation Report: Transseptal atrial puncture was performed under ICE guidance. Transseptal sheaths/catheters were visualized in the left atrium and monitored during the ablation procedure with ICE. A small pericardial effusion was observed before or after the procedure. Post -operative Diagnosis Summary: Roof-dependent left atrial macroreentrant tachycardia was present at baseline and was successfully ablated. Catheter ablation of atrial fibrillation was performed with circumferential antral pulmonary vein electrical isolation. Additionally, linear ablation was performed and left atrial posterior wall isolation was achieved. Estimated Blood Loss: Minimal. Specimens Removed: None. Complications: None. Joshua Yin M.D. 12/05/2023 documented in this encounter OR Notes * Pre-Sedation Assessment - Joshua Yin MD - 12/05/2023 7:05 AM CDT Images from the original note were not included. Pre-sedation Evaluation Planned Procedure: Catheter ablation Indication: AFL Childcare Teacher: JOSHUA YIN MD Medical History: Patient Active Problem List Diagnosis Essential hypertension Paroxysmal atrial fibrillation (CMS/HCC HHS/HCC) watermaster current use of anticoagulant therapy Obstructive sleep apnea Hyperlipidemia Diabetes (CMS/HCC HHS/HCC) Coronary artery disease Chronic total occlusion of [place] coronary artery Cardiovascular stress test abnormal Arthritis of knee Derangement of medial meniscus, left Heartburn Knee pain Mechanical complication of internal orthopedic device, implant or graft, initial encounter ([facility]) Patella-femoral syndrome Pes anserine bursitis Recurrent ventral incisional hernia Abdominal pain Failure of total knee replacement, initial encounter ([facility]) S/P coronary artery stent placement Prosthetic knee implant failure ([facility]) Status post revision of total replacement of right knee Neck pain Microhematuria S/P ablation of atrial fibrillation Atrial flutter ([facility] HHS/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 HHS/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 HHS/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 Current Outpatient Medications on File Prior to Encounter Medication Sig Dispense Refill amitriptyline 100 MG [...] the skin nightly at bedtime. Continuous Glucose Master Lay Out Specialist (FREESTYLE HAZEL 3 READER) Device Inject 1 Device into the skin as needed (DM). Continuous Glucose Sensor (FREESTYLE HAZEL 3 SENSOR) Misc Inject 1 Device into [...] by mouth twice a day 60 tablet 0 gabapentin (NEURONTIN) 400 MG capsule [...] mouth twice a day 60 tablet 1 NOVOLOG FLEXPEN 100 UNIT/ML injection (PEN) Inject 50 Units as directed 3 (three) times daily before meals. potassium chloride CR (KLOR-CON M) 20 MEQ tablet take one tablet by mouth daily 30 tablet 4 tamsulosin 0.4 MG Cap Take 1 capsule (0.4 mg total) by mouth daily. traMADol 50 MG tablet Take 1 tablet (50 mg total) by mouth 3 (three) times a day. nitroglycerin 0.[address] 1 tablet (0.4 mg total) under the tongue every 5 (five) minutes as needed for Chest Pain. 25 tablet 1 OZEMPIC, 0.25 OR 0.5 MG/DOSE, 2 MG/3ML injection (PEN) Inject 0.25 mg into the skin every 7 days. 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 Tobacco Use Smoking status: Never Smokeless tobacco: Never Vaping Use Vaping status: Never Used Substance and Sexual Activity Alcohol use: Yes Comment: social Drug use: No Sexual activity: Not on file Other Topics Concern Exercise Yes Comment: walking Special Diet No Caffeine Concern Yes Social History Narrative Not on file Social Determinants of Health Financial Resource Strain: Not on file Food Insecurity: Not on file Transportation Needs: No Transportation Needs (02/23/2023) [facility] Needs In the past 12 months, has lack of transportation kept you from medical appointments or from getting medications?: 2 In the past 12 months, has lack of transportation kept you from meetings, work, or from getting things needed for daily living?: 2 Physical Activity: Not on file Stress: Not on file Social Connections: Not on file Intimate Partner Violence: Not At Risk (02/23/2023) Received from [facility] Safety Threatened: Not on file Insulted: Not on file Physically Hurt : Not on file Scream: Not on file Housing Stability: At Risk (02/23/2023) Received from [facility] Housing Living Situation: Not on file Housing Problems: Not on file Allergies Allergen Reactions Tetracyclines & Related Other (see comment) Blisters in the mouth Doxycycline Other (see comment) and Rash Blisters in the mouth HGB (G/DL) Date Value 12/02/2023 12.6 (L) HCT (%) Date Value 12/02/2023 40.6 PLT (x10'3/uL) Date Value 12/02/2023 276 POTASSIUM S/P/B (MMOL/L) Date Value 12/02/2023 4.7 CREATININE S/P/B (MG/DL) Date Value 12/02/2023 1.21 INR (no units) Date Value 10/15/2022 1.0 Changes in medical history recently?: No History sedation complication: No. Written consent was given by for today's procedure. The patient has been NPO for >8 hours. Physical Exam: Lungs: Clear to auscultation. Heart: IRRR Airway/Mallampati: Class 3 ASA: Class 3 Acceptable for IV sedation: Yes JOSHUA YIN MD 12/05/2023 documented in this encounter Plan of Treatment Upcoming Encounters Date Type Department Care Team (Late st Contact Info) Description 04/25/2024 11:00 AM PARKING STATION ATTENDANT Appointment [facility] [address] [place] [address] Ti Zamora MD [address] [place] [phone] 05/23/2024 3:30 PM PARKING STATION ATTENDANT Office Visit [facility] [address] [place] [phone] Jyoti Escobar MD [address] [place] [address] Pending Results Name Type Priority Associated Diagnoses Date /Time XA AFLUTTER ABLATION Cardiac Cath Routine Atypical atrial flutter (CMS/HCC HHS/HCC) 12/05/2023 10:31 AM CDT Scheduled Orders Name Type Priority Associated Diagnoses Orde r Schedule XA AFLUTTER ABLATION Cardiac Cath Routine Atypical atrial flutter (CMS/HCC HHS/HCC) Once for 1 Occurrences starting 12/05/2023 until 12/05/2023 documented as of this encounter Procedures Procedure Name Priority Date/Time Associated Diagnosis Comments ECG 12-LEAD Routine 12/05/2023 11:55 AM CDT Atypical atrial flutter (CMS/HCC HHS/HCC) POCT GLUCOSE - RAMOS DOCKED DEVICE Routine 12/05/2023 10:38 AM CDT POCT ACTIVATED CLOTTING TIME - ISTAT DOCKED DEVICE Routine 12/05/2023 9:49 AM CDT POCT ACTIVATED CLOTTING TIME - ISTAT DOCKED DEVICE Routine 12/05/2023 9:19 AM CDT POCT GLUCOSE - RAMOS DOCKED DEVICE Routine 12/05/2023 7:17 AM CDT ECG 12-LEAD Routine 12/05/2023 7:01 AM CDT documented in this encounter Results * ECG 12 lead - Today (12/05/2023 11:55 AM CDT) 12/05/2023 11:5 5 AM CDT Narrative [facility] - 12/05/2023 5:17 PM CDT ? [facility] ?[address], [place] ??[address] ? Test Date: ?2023-12-05 Pat Name: ? ELZA MCKEON ? Department: ?? 1 ? Room: ? [id number] Gender: ? Male ? Biztalk Administrator: ?? Bh : ?1960 ? Requested By: ZIRONA RODNEY Order Number: [id number] ? Reading MD: ?? Leonid Khan ? Measurements Intervals ?[place] ? Rate: ? 96 ? P: ?75 MS: ? 237 ?QRS: ?58 QRSD: ? 109 ?T: ?18 QT: ? 345 ? QTc: ?437 ? Interpretive Statements SINUS RHYTHM WITH MARKED SINUS ARRHYTHMIA WITH FIRST DEGREE AV BLOCK LOW QRS VOLTAGE IN PRECORDIAL LEADS ??[QRS DEFLECTION < 1.0 mV IN CHEST LEADS] INCOMPLETE RIGHT BUNDLE BRANCH BLOCK ??[90+ ms QRS DURATION, TERMINAL R IN V1/V2, 40+ ms S IN I/aVL/V4/V5/V6] Procedure Note Leonid Khan MD - 12/05/2023 [place] [address] [place] [address] Test Date: 2023-12-05 Pat Name: [facility] Department: Room: [address] Gender: Male Biztalk Administrator: : 1960 Requested By: JOSHUA YIN Order Number: [id number] Reading MD: Leonid Khan Measurements Intervals [place] Rate: 96 P: 75 MS: 237 QRS: 58 QRSD: 109 T: 18 QT: 345 QTc: 437 Interpretive Statements SINUS RHYTHM WITH MARKED SINUS ARRHYTHMIA WITH FIRST DEGREE AV BLOCK LOW QRS VOLTAGE IN PRECORDIAL LEADS [QRS DEFLECTION < 1.0 mV IN CHESTLEADS] INCOMPLETE RIGHT BUNDLE BRANCH BLOCK [90+ ms QRS DURATION, TERMINAL RIN V1/V2, 40+ ms S IN I/aVL/V4/V5/V6] us Joshua Yin MD ECG ORDERABLES Final Result [facility] * POCT glucose (12/05/2023 10:38 AM CDT) [facility] GLUCOSE POC 93 70 - 109 12/05/2023 10:43 AM CDT [facility] 12/05/2023 10:3 8 AM CDT us Joshua Yin MD POCT ORDERABLES - DEVICE Final R esult Performing Organization Address [facility] de Phone Number [facility] [address] [place] [address], [place] [phone] * (ABNORMAL) POCT ACTIVATED CLOTTING TIME - ISTAT DOCKED DEVICE (12/05/2023 9:49 AM CDT) ACTIVATED CLOTTING TIME (ACT HMT OR LMT) 287(H) 74 - 137 SEC 12/07/2023 7:09 AM CDT [facility] 12/05/2023 9:49 AM CDT us Joshua Yin MD POCT ORDERABLES - DEVICE Final R esult Performing Organization Address [facility] de Phone Number [facility] [address] [place] [address], [place] [phone] * (ABNORMAL) POCT ACTIVATED CLOTTING TIME - ISTAT DOCKED DEVICE (12/05/2023 9:19 AM CDT) ACTIVATED CLOTTING TIME (ACT HMT OR LMT) 287(H) 74 - 137 SEC 12/07/2023 7:09 AM CDT [facility] 12/05/2023 9:19 AM CDT us Joshua Yin MD POCT ORDERABLES - DEVICE Final R esult Performing Organization Address [facility] Co de Phone Number [facility] [address] [place] [address], [place] [phone] * (ABNORMAL) POCT glucose (12/05/2023 7:17 AM CDT) GLUCOSE POC 63(L) 70 - 109 12/05/2023 10:45 AM CDT [facility] 12/05/2023 7:17 AM CDT us Joshua Yin MD POCT ORDERABLES - DEVICE Final R esult [facility] [address] [place] [address], [phone] * ECG 12 lead (12/05/2023 7:01 AM CDT) 12/05/2023 7:01 AM CDT Narrative [facility] - 12/06/2023 9:46 AM CDT ? [facility] ?[address], [place] ??[address] ? Test Date: ?2023-12-05 Pat Name: ? ELZA MCKEON ? Department: ?? 1 ? Room: ? [id number] Gender: ? Male ? Biztalk Administrator: ?? Sc : ?1960 ? Requested By: JOSHUA YIN Order Number: [id number] ? Reading : ?? Kyle Mckeon ? Measurements Intervals ?[place] ? Rate: ? 85 ? P: ? MS: ? 0 ?QRS: ?60 QRSD: ? 141 ?T: ?31 QT: ? 407 ? QTc: ?487 ? Interpretive Statements ATRIAL FIBRILLATION RIGHT BUNDLE BRANCH BLOCK ??[120+ ms QRS DURATION, UPRIGHT V1, 40+ ms S IN I/aVL/V4/V5/V6] Procedure Note Kyle Mckeon MD - 12/06/2023 [facility] [address] [place] [address] Test Date: 2023-12-05 Pat Name: [facility] Department: 1 Room: [address] Gender: Male Biztalk Administrator: Pr : 1960 Requested By: JOSHUA YIN Order Number: [id number] Jose Antonio MD: Kyle Mckeon Measurements Intervals [place] Rate: 85 P: MS: 0 QRS: 60 QRSD: 141 T: 31 QT: 407 QTc: 487 Interpretive Statements ATRIAL FIBRILLATION RIGHT BUNDLE BRANCH BLOCK [120+ ms QRS DURATION, UPRIGHT V1, 40+ ms SIN I/aVL/V4/V5/V6] Joshua Yin MD ECG ORDERABLES Final Result [facility] documented in this encounter Visit Diagnoses Diagnosis Atypical atrial flutter (CMS/HCC HHS/HCC) Atrial flutter documented in this encounter Administered Medications Inactive Administered Medications - up to 3 most recent administrations Medication Order MAR Action Action Date Dose Rate Site acetaminophen (TYLENOL) tablet 650 mg 650 mg, Oral, Every 6 hours PRN, Mild pain (Scale 1 - 3), Starting on Tue12/05/23 at 1057, Until Tue12/05/23 at 1818, Maximum dose of acetaminophen is 4000 mg from all sources in 24 hours., Post-Op chlorhexidine (PERIDEX) 0.12 % solution 15 mL 15 mL, Mouth/Throat, PRN, Prior to surgery, 1 dose, Starting on Tue12/05/23 at 0626, Until Tue12/05/23 at 1818, Patient to perform oral care first. Swish/Gargle in mouth for 30 seconds, and then discard, prior to going to surgery/ If ventilated use saturated swab to clean oral cavity., Pre-Op dextrose (GLUTOSE) 40 % oral gel 37.5-75 g 37.5-75 g (15-30 g of dextrose), Oral, As needed, Low blood sugar, Starting on Tue12/05/23 at 0713, Until Tue12/05/23 at 1818, If patient is verbally responsive and taking thickened liquids or oral medications: Blood glucose less than 50 mg/dL - give 30 g of dextrose; repeat until blood glucose reaches 70 mg/dL Blood glucose 50-69 mg/dL - give 15 g of dextrose; repeat until blood glucose reaches 70 mg/dL 37.5 g of glucose gel = 15 g of dextrose dextrose 10 % bolus infusion 125-250 mL 125-250 mL, Intravenous, Administer over 15 Minutes, As needed, Low Blood Sugar, Starting on Tue12/05/23 at 0713, Until Tue12/05/23 at 1819, If patient is verbally responsive and NPO or unable to swallow: Blood glucose less than 50 mg/dL - give 250 mL (25 g) and repeat until blood glucose reaches 70 mg/dL Blood glucose 50-69 mg/dL - give 125 mL (12.5 g) and repeat until blood glucose reaches 70 mg/dL If patient is verbally Unresponsive and NPO or unable to swallow: Blood glucose less than 70 mg/dL - give 250 mL (25 g), repeat until blood glucose reaches 70 mg/dL New Bag 12/05/2023 7:23 AM CDT 250 mLs 125 mL/hr furosemide (LASIX) injection 40 mg 40 mg, Intravenous, Once, 1 dose, On Tue12/05/23 at 1445, Administer IV push 20-40mg/min. Given 12/05/2023 2:39 PM CDT 40 mg glucagon injection 1 mg 1 mg, Intramuscular, Once as needed, Other, Low blood sugar, 1 dose, Starting on Tue12/05/23 at 0713, Until Tue12/05/23 at 181, If patient is verbally UNresponsive and no IV access with blood glucose less than 70 mg/dL. Do NOT repeat administration. HYDROcodone-acetaminophen (NORCO) 10-325 MG tablet 1 tablet 1 tablet, Oral, Every 6 hours PRN, Moderate pain (Scale 4 - 7), Starting on Tue12/05/23 at 1057, Until Tue12/05/23 at 1819, Maximum dose of acetaminophen is 4000 mg from all sources in 24 hours., Post-Op ondansetron (ZOFRAN) injection 4 mg 4 mg, Intravenous, Every 8 hours PRN, Nausea, Vomiting, Starting on Tue12/05/23 at 1057, Until Tue12/05/23 at 1819, IV push over 2-5 minutes., Post-Op documented in this encounter Active and Recently Administered Medications Times are shown in CDT. Scheduled Medication Order 12/03/2023 12/04/2023 12/05/2023 furosemide (LASIX) injection 40 mg (COMPLETED) 40 mg, Intravenous, Once, 1 dose, On Tue12/05/23 at 1445, Administer IV push 20-40mg/min. 1439 (Given - Provid er: Rossy Bautista RN) PRN Medication Order 12/03/2023 12/04/2023 12/05/2023 acetaminophen (TYLENOL) tablet 650 mg 650 mg, Oral, Every 6 hours PRN, Mild pain (Scale 1 - 3), Starting on Tue12/05/23 at 1057, Until Tue12/05/23 at 1818, Maximum dose of acetaminophen is 4000 mg from all sources in 24 hours., Post-Op chlorhexidine (PERIDEX) 0.12 % solution 15 mL 15 mL, Mouth/Throat, PRN, Prior to surgery, 1 dose, Starting on Tue12/05/23 at 0626, Until Tue12/05/23 at 1818, Patient to perform oral care first. Swish/Gargle in mouth for 30 seconds, and then discard, prior to going to surgery/ If ventilated use saturated swab to clean oral cavity., Pre-Op dextrose (GLUTOSE) 40 % oral gel 37.5-75 g 37.5-75 g (15-30 g of dextrose), Oral, As needed, Low blood sugar, Starting on Tue12/05/23 at 0713, Until Tue12/05/23 at 1818, If patient is verbally responsive and taking thickened liquids or oral medications: Blood glucose less than 50 mg/dL - give 30 g of dextrose; repeat until blood glucose reaches 70 mg/dL Blood glucose 50-69 mg/dL - give 15 g of dextrose; repeat until blood glucose reaches 70 mg/dL 37.5 g of glucose gel = 15 g of dextrose dextrose 10 % bolus infusion 125-250 mL 125-250 mL, Intravenous, Administer over 15 Minutes, As needed, Low Blood Sugar, Starting on Tue12/05/23 at 0713, Until Tue12/05/23 at 1818, If patient is verbally responsive and NPO or unable to swallow: Blood glucose less than 50 mg/dL - give 250 mL (25 g) and repeat until blood glucose reaches 70 mg/dL Blood glucose 50-69 mg/dL - give 125 mL (12.5 g) and repeat until blood glucose reaches 70 mg/dL If patient is verbally Unresponsive and NPO or unable to swallow: Blood glucose less than 70 mg/dL - give 250 mL (25 g), repeat until blood glucose reaches 70 mg/dL 0723 (New Bag - Prov ider: Tonya Martin RN)0738 (Due: Infusion Stop Time - Provider: Tonya Martin RN) glucagon injection 1 mg 1 mg, Intramuscular, Once as needed, Other, Low blood sugar, 1 dose, Starting on Tue12/05/23 at 0713, Until Tue12/05/23 at 181, If patient is verbally UNresponsive and no IV access with blood glucose less than 70 mg/dL. Do NOT repeat administration. HYDROcodone-acetaminophen (NORCO) 10-325 MG tablet 1 tablet 1 tablet, Oral, Every 6 hours PRN, Moderate pain (Scale 4 - 7), Starting on Tue12/05/23 at 1057, Until Tue12/05/23 at 1819, Maximum dose of acetaminophen is 4000 mg from all sources in 24 hours., Post-Op ondansetron (ZOFRAN) injection 4 mg 4 mg, Intravenous, Every 8 hours PRN, Nausea, Vomiting, Starting on Tue12/05/23 at 1057, Until Tue12/05/23 at 181, IV push over 2-5 minutes., Post-Op documented in this encounter Care Teams Snake Charmer Relationship Specialty Start Date End Date Ti Zamora MD [address] [place] [phone] PCP - General FAMILY PRACTICE 12/03/21 Elza Allan MD [place] [employer] Spring Assembler CARDIOVASCULAR DISEASE 08/19/16 Raul Santana MD CLINICAL CARDIAC ELECTROPHYSIOLOGY 06/16/17 Danny Blackwell MD [address] [place] [address] [phone] ORTHOPAEDIC SURGERY 05/01/19 Gayle Arce APRN, HEALTH PROFESSIONAL-C [address] [facility] [address] [phone] NURSE PRACTITIONER 03/03/20 Mendel Shah DPM [address] [place] [address] [place], [place] [phone] Consulting Physician PODIATRY/SURGERY 06/27/23 06/26/24 documented as of this encounter
--- OUTSIDE RECORDS SUMMARY | 2024-04-23 04:21 | XMS_ITS | Encounter Summary ---
Author Organization [facility] Address [address] [place] [address]. [place], [place] [id number] [place] [address] Care Team Providers Care Panel Edge Painter Name Role Phone Elza Allan MD Unavailable Unavailabl Raul Duran MD Unavailable Unavailabl aDnny Lopes MD Unavailable [phone] Gayle Arce APRN, CYLINDER VALVE REPAIRER-C Unavailable [phone] Ti Bonilla MD Primary Care Provider [phone] Mendel Shah DPM Unavailable [phone] Jyoti Escobar MD Unavailable [phone] Encounter Details Date Type Department Care Team (Late st Contact Info) Description 02/23/2024 [facility] [address] [place] [address] Joshua Yin MD [address] [place] [address] Social History Tobacco Use Types Packs/Day Years Used Date Smoking Tobacco: Never Smokeless Tobacco: Never Alcohol Use Standard Drinks/Week Comments Yes 0 (1 standard drink = 0.6 oz pur e alcohol) social [facility] Utilities Answer Date Recorded In [...] any time in the past 12 [facility], were you homeless or living in a jail (including now)? 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 Not on file Not on file Not on file documented as of this encounter Functional Status * Are you deaf or do you have serious difficulty hearing Answer Date of Assessment Author Status No 12/08/2023 12:56 PM CDCharlotte Zapata LPN Active * Are you blind or [...] st Contact Info) Description 04/25/2024 11:00 AM SAFE DEPOSIT ATTENDANT Appointment Time [facility] [address] [place] [address] Ti Bonilla MD [address] [place] [phone] 05/23/2024 3:30 PM SAFE DEPOSIT ATTENDANT Office Visit [facility] [address] [place] [phone] Jyoti Escobar MD [address] [place] [phone] documented as of this encounter Goals Goal Patient Goal Type Associated Problems Recent Progress Patient-Stated? Author Safety ? Patient/family will have appropriate support at home upon discharge Lifestyle No Alex Lozano master merchandiser - family caregiver with be involved in care transitions and discharge planning Lifestyle No Alex Lozano RN Patient will return to prior living situation and remain independent in ADLs upon discharge from hospital Lifestyle No Alex Lozano RN documented as of this encounter Results * ELECTROCARDIOGRAM (02/29/2024 1:57 PM SAFE DEPOSIT ATTENDANT) 02/29/2024 1:57 PM SAFE DEPOSIT ATTENDANT Narrative [facility] - 03/08/2024 4:06 PM SAFE DEPOSIT ATTENDANT ? [facility] ?[address] [place], [place] ??[address] ? Test Date: ?2024-02-29 Pat Name: ? ELZA MCKEON ? Department: ?? 105 ? Room: ? Gender: ? Male ? Fractionating Still Operator: ?? dp : ?1960 ? Requested By: JOSHUA YIN Order Number: [id number] ?Jose Antonio OSMAN: ?? Carlos Sheth ? Measurements Intervals ?[place] ? Rate: ? 89 ? P: ?34 DE: ? 143 ?QRS: ?78 QRSD: ? 102 ?T: ?49 QT: ? 360 ? QTc: ?440 ? Interpretive Statements SINUS RHYTHM LOW QRS VOLTAGE IN PRECORDIAL LEADS INCOMPLETE RIGHT BUNDLE BRANCH BLOCK DEPOSIT ATTENDANT Procedure Note Carlos Sheth MD - 03/08/2024 [facility], [place] [address] [place] [address] Test Date: 2024-02-29 [facility]: [facility] Department: 105 Room: Gender: Male Fractionating Still Operator: daniel : 1960 Requested By: JOSHUA YIN Order Number: [id number] Jose Antonio MD: Reyna Measurements Intervals [place] Rate: 89 P: 34 DE: 143 QRS: 78 QRSD: 102 T: 49 QT: 360 QTc: 440 Interpretive Statements SINUS RHYTHM LOW QRS VOLTAGE IN PRECORDIAL LEADS INCOMPLETE RIGHT BUNDLE BRANCH BLOCK DEPOSIT ATTENDANT Joshua Yin MD PROCEDURES-ORDERABLE NO CHARGE F inal Result [facility]OST documented in this encounter Visit Diagnoses Diagnosis Paroxysmal atrial fibrillation ([facility] HHS/HCC)- Primary Atrial fibrillation Atypical atrial flutter ([facility] HHS/HCC) Atrial flutter Atypical atrial flutter ([facility] HHS/HCC)- Primary Atrial flutter Paroxysmal atrial fibrillation ([facility] HHS/HCC) Atrial fibrillation documented in this encounter Care Teams Panel Edge Painter Relationship Specialty Start Date End Date Ti Bonilla MD [address] [place] [phone] PCP - General FAMILY PRACTICE 12/03/21 Elza Allan MD [place] [employer] Instrument Mechanic CARDIOVASCULAR DISEASE 08/19/16 Raul Santana MD CLINICAL CARDIAC ELECTROPHYSIOLOGY 06/16/17 Danny Blackwell MD [address] [phone] ORTHOPAEDIC SURGERY 05/01/19 Gayle Arce APRN, CYLINDER VALVE REPAIRER-C [address] [place] [address] [address] [place] [phone] NURSE PRACTITIONER 03/03/20 Mendel Shah DPM [facility] [place] [address] Consulting Physician PODIATRY/SURGERY 06/27/23 06/26/24 Jyoti Escobar MD [address] [place] [address] INTERVENTIONAL CARDIOLOGY 12/27/23 documented as of this encounter
--- OUTSIDE RECORDS SUMMARY | 2024-04-23 04:21 | XMS_ITS | Encounter Summary ---
Author Organization [facility] Address [address] [place] [address]. [place], [place] [address] [place] [address] Care Team Providers Care Millinery Blocker Name Role Phone Evaristo Allan MD Unavailable Unavailabl Raul Duran MD Unavailable Unavailabl Danny Lopes MD Unavailable [phone] Gayle Arce APRN, WET PROCESS MILLER-C Unavailable [phone] Ti Bonilla MD Primary Care Provider [phone] Mendel Shah DPM Unavailable [phone] Jyoti Escobar MD Unavailable [phone] Reason for Referral * Consultation (Routine) - New Request Specialty Diagnoses / Procedures Referred By Contac t Referred To Contact SLEEP & RESPIRATORY CARE Diagnoses Obstructive sleep apnea Acute on chronic systolic congestive heart failure ([facility]/HCC [facility]) Procedures OFFICE/OUTPATIENT NEW LOW MDM 30-44 MINUTES OFFICE/OUTPT VISIT,NEW,LEVL IV OFFICE/OUTPT VISIT,NEW,LEVL V OFFICE/OUTPT VISIT,EST,LEVL III OFFICE/OUTPT VISIT,EST,LEVL IV OFFICE/OUTPT VISIT,EST,LEVL V Gayle Arce APRN, WET PROCESS MILLER-C [address] [facility] [address] [place] [address] Phone: tel: fax: Kali Lewis MD [address] [place] [address] Phone: tel: fax: Referral ID Status Reason Start Date Expiration Date Visits Requested Visits Authorized [id number] New Request Specialty Services 12/27/2023 12/26/2024 1 1 Reason for Visit * Reason Onset Date Comments Referral 12/27/2023 Referral for Pul omonary placed Encounter Details Date Type Department Care Team ([facility] st Contact Info) Description 12/27/2023 Telephone [facility] [address] [place] [address] Gayle Arce APRN, PELON [address] [facility] [address] [place] [address] Referral (Referral for Pulomonary placed) Social History Tobacco Use Types Packs/Day Years Used Date Smoking Tobacco: Never Smokeless Tobacco: Never Alcohol Use Standard Drinks/Week Comments Yes 0 (1 standard drink = 0.6 oz pur e alcohol) social [facility] Utilities Answer Date Recorded In the past 12 months has e electric, gas, oil, or water [employer] threatened to shut off services in your [...] any time in the past 12 m [facility], were you homeless or living in a fpc (including now)? 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 Dx: requiring home oxygen and SOB * Shanon Harris LPN - 12/27/2023 1:57 PM CDTSummary: Referral for Pulomonary placed Referral for Pulomonary placed to [facility] documented in this encounter Plan of Treatment Upcoming Encounters Date Type Department Care Team (Late st Contact Info) Description 04/25/2024 11:00 AM MARKETING AND PROMOTIONS MANAGER Appointment [facility] [address] [place] [address] Ti Bonilla MD [address] [place] [phone] 05/23/2024 3:30 PM MARKETING AND PROMOTIONS MANAGER Office Visit [facility] [address] [place] [phone] Jyoti Escobar MD [address] [place] [address], [place] [address] Scheduled Referrals Name Type Priority Associated Diagnoses Orde r Schedule Ambulatory referral to Pulmonology/Sleep and Respiratory Care Referral Routine Obstructive sleep apnea Acute on chronic systolic congestive heart failure ([facility]) Ordered: 12/27/2023 documented as of this encounter Goals Goal Patient Goal Type Associated Problems Recent Progress Patient-Stated? Author Safety ? Patient/family will have appropriate support at home upon discharge Lifestyle No Alex Lozano, collection systems modeler - family caregiver with be involved in care transitions and discharge planning Lifestyle No Alex Lozano, RN Patient will return to prior living situation and remain independent in ADLs upon discharge from hospital Lifestyle No Alex Lozano RN documented as of this encounter Visit Diagnoses Diagnosis Obstructive sleep apnea- Primary Obstructive sleep apnea (adult) (pediatric) Acute on chronic systolic congestive heart failure ([facility]) Acute on chronic systolic heart failure documented in this encounter Care Teams Millinery Blocker Relationship Specialty Start Date End Date Ti Bonilla MD [address] [place] [phone] PCP - General FAMILY PRACTICE 12/03/21 Evaristo Allan MD [place] Cloud Systems Administrator CARDIOVASCULAR DISEASE 08/19/16 Raul Santana MD CLINICAL CARDIAC ELECTROPHYSIOLOGY 06/16/17 Danny Blackwell MD [address] [place] [address] ORTHOPAEDIC SURGERY 05/01/19 Gayle Arce APRN, WET PROCESS MILLER-C [address] [place] [address] [address] [place] [address] NURSE PRACTITIONER 03/03/20 Mendel Shah DPM [address] [place] [address] [place] [address] Consulting Physician PODIATRY/SURGERY 06/27/23 06/26/24 Jyoti Escobar MD [address] [place], [place] [address] INTERVENTIONAL CARDIOLOGY 12/27/23 documented as of this encounter
--- OUTSIDE RECORDS SUMMARY | 2024-04-23 04:22 | XMS_ITS | Encounter Summary ---
Author Organization [facility] Address [address] [place] [address]. [place], [place] [address] [place] [address] Care Team Providers Care Inseam Leveler Name Role Phone Evaristo Allan MD Unavailable Unavailabl Raul Duran MD Unavailable Unavailabl Danny Lopes MD Unavailable [phone] Gayle Arce APRN, OPHTHALMIC MEDICAL ASSISTANT-C Unavailable Ti Bonilla MD Primary Care Provider Mendel Shah DPM Unavailable [phone] Encounter Details Date Type Department Care Team (Late st Contact Info) Description 07/04/2023 9:00 AM CDT - 07/04/2023 11:59 PM CDT Hospital Encounter [facility] [address] [place] [address] Olivia Pearson, ATG JAVA DEVELOPER [address] [place] [address] Discharge Disposition: Home or Self [...] 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 [...] as of this encounter Progress Notes * Destini Martinez RN - 07/04/2023 9:00 AM CDTEncounter addended by: Destini Martinez RN on: 07/04/2023 11:25 AM Actions taken: MAR administration accepted documented in this encounter Plan of Treatment Upcoming Encounters Date Type Department Care Team (Late st Contact Info) Description 04/25/2024 11:00 AM TIRE BUILDER HEAVY SERVICE Appointment [facility] [address] [place] [address] [place] [address] Ti Bonilla MD [address] [place] [phone] 05/23/2024 3:30 PM TIRE BUILDER HEAVY SERVICE Office Visit [facility] [address] [facility] [place] [place] [phone] Jyoti Escobar MD [address] [place] [address] documented as of this encounter Visit Diagnoses Diagnosis 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, limited to breakdown of skin ([facility]/HCC HHS/HCC)- Primary documented in this encounter Administered Medications Inactive Administered Medications - up to 3 most recent administrations Medication Order MAR Action Action Date Dose Rate Site lidocaine 2 % URO-JET jelly Topical, Once, 1 dose, On 07/04/23 at 1030Indications: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, limited to breakdown of skin (CMS/HCC HHS/HCC) Given 07/04/2023 9:40 AM CDT documented in this encounter Care Teams Inseam Leveler Relationship Specialty Start Date End Date Ti Bonilla MD [address] [place] [phone] PCP - General FAMILY PRACTICE 12/03/21 Evaristo Allan MD [place] Sales Ledger Clerk CARDIOVASCULAR DISEASE 08/19/16 Raul Santana MD CLINICAL CARDIAC ELECTROPHYSIOLOGY 06/16/17 Danny Blackwell MD [address] [place], [place] [phone] ORTHOPAEDIC SURGERY 05/01/19 Gayle Arce, STUDENT FINANCE SPECIALIST, OPHTHALMIC MEDICAL ASSISTANT-C [address] [phone] NURSE PRACTITIONER 03/03/20 Mendel Shah DPM [facility] [facility] [place] [address] Consulting Physician PODIATRY/SURGERY 06/27/23 06/26/24 documented as of this encounter
--- OUTSIDE RECORDS SUMMARY | 2024-04-23 04:22 | XMS_ITS | Encounter Summary ---
Author Organization [facility] Address [address] [place] [address]. [place], [place] [address] [place] [address] Care Team Providers Care Bit Welder Name Role Phone Evaristo Allan MD Unavailable Unavailabl Raul Duran MD Unavailable Unavailabl Danny Lopes MD Unavailable [phone] Gayle Arce APRN, JIRA DEVELOPER-C Unavailable [phone] Ti Bonilla MD Primary Care Provider Encounter Details Date Type Department Care Team (Late st Contact Info) Description 11/19/2022 11:16 AM CDT - 11/19/2022 11:59 PM CDT Hospital Encounter [facility] [address] [place] [address] Olivia Pearson, SALESPERSON BURIAL NEEDS [address] [place] [phone] Discharge Disposition: Home or Self Care (Routine [...] 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 09/10/2020 metFORMIN 850 MG tablet Take 1 tablet (850 mg total) by mouth 3 (three) times daily. 10/25/2018 NOVOLOG FLEXPEN 100 UNIT/ML injection (PEN) Inject 50 Units as directed 3 (three) times daily before meals. 09/13/2019 traMADol 50 MG tablet Take 1 tablet (50 mg total) by mouth 3 (three) times a day. 11/19/2019 TRUEPLUS PEN NEEDLES 31G X 8 MM Misc 01/19/2021 aspirin EC 81 MG tablet Take 81 mg by mouth daily. 100 tablet 10/18/2019 06/30/2023 atorvastatin 40 MG tablet Take 0.5 tablets (20 mg total) by mouth nightly at bedtime. 12/26/2023 famotidine 40 MG tablet Take 1 tablet (40 mg total) by mouth 2 (two) times daily. 12/06/2020 12/26/2023 furosemide (LASIX) 20 MG tablet TAKE TWO TABLETS BY MOUTH DAILY 60 tablet 10/21/2022 06/30/2023 gabapentin 300 MG capsule Take 300 mg by mouth 3 (three) times daily. 02/06/2018 06/30/2023 LEVEMIR 100 UNIT/ML injection Inject 44 Units into the skin nightly at bedtime. 12/29/2017 06/30/2023 metoprolol succinate ER (TOPROL-XL) 100 MG 24 hr tablet Take 1 tablet (100 mg total) by mouth daily. 30 tablet 5 11/03/2021 06/30/2023 nitroglycerin 0.[address] 1 tablet (0.4 mg total) under the tongue every 5 (five) minutes as needed for Chest Pain. 25 tablet 1 01/04/2018 12/26/2023 PRADAXA 150 MG Cap TAKE ONE CAPSULE BY MOUTH TWICE A DAY 180 capsule 1 08/10/2021 06/30/2023 tamsulosin 0.4 MG Cap Take 1 capsule (0.4 mg total) by mouth daily. 12/26/2023 documented as of this encounter Plan of Treatment Upcoming Encounters Date Type Department Care Team (Late st Contact Info) Description 04/25/2024 11:00 AM BOARD MACHINE SET UP OPERATOR Appointment [facility] [address] [place] [address] [place] [address] Ti Bonilla MD [address] [place] [phone] 05/23/2024 3:30 PM BOARD MACHINE SET UP OPERATOR Office Visit [facility] [address] [place] [address] Jyoti Escobar MD [address] [place] [address] documented as of this encounter Visit Diagnoses Not on filedocumented in this encounter Care Teams Bit Welder Relationship Specialty Start Date End Date Ti Bonilla MD [address] [place], [place] [phone] PCP - General FAMILY PRACTICE 12/03/21 Evaristo Allan MD [place] Studio Musician CARDIOVASCULAR DISEASE 08/19/16 Raul Santana MD CLINICAL CARDIAC ELECTROPHYSIOLOGY 06/16/17 Danny Blackwell MD [address] [place] [address] ORTHOPAEDIC SURGERY 05/01/19 Gayle Arce, PUNCH MOLDER, JIRA DEVELOPER-C [address] [facility] [address] [place] [address] NURSE PRACTITIONER 03/03/20 documented as of this encounter
--- OUTSIDE RECORDS SUMMARY | 2024-04-23 04:22 | XMS_ITS | Encounter Summary ---
Author Organization [facility] Address [address] [place] [address]. [place], [place] [address] [place] [address] Care Team Providers Care Emg Technician Name Role Phone Evaristo Allan MD Unavailable Unavailabl Raul Duran MD Unavailable Unavailabl e Danny Blackwell MD Unavailable [phone] Gayle Arce APRN, FINANCIAL AID DIRECTOR-C Unavailable Ti Bonilla MD Primary Care Provider [phone] Mendel Shah DPM Unavailable [phone] Reason for Visit * Reason Comments Stress Test (SCAN) Encounter Details Date Type Department Care Team (Late st Contact Info) Description 02/25/2023 Scan [facility] [address] [place] [address] Scanned, Doc Pccl Stress Test (SCAN) Social History Tobacco Use Types Packs/Day Years [...] 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 [...] st Contact Info) Description 04/25/2024 11:00 AM PRODUCT APPLICATIONS SCIENTIST Appointment [facility] [address] [facility] [place] [address] Ti Bonilla MD [address] [place] [phone] 05/23/2024 3:30 PM PRODUCT APPLICATIONS SCIENTIST Office Visit [facility] [address] [place] [address] Jyoti Escobar MD [address] [place] [address] documented as of this encounter Procedures Procedure Name Priority Date/Time Associated Diagnosis Comments STRESS TEST (SCAN ORDER) Routine 02/25/2023 documented in this encounter Results * STRESS TEST (02/25/2023) us Doc Pccl Scanned SCANNING Final Result [facility] documented in this encounter Visit Diagnoses Not on filedocumented in this encounter Care Teams Emg Technician Relationship Specialty Start Date End Date Ti Bonilla MD [address] [place] [address] PCP - General FAMILY PRACTICE 12/03/21 Evaristo Allan MD [place] Beader CARDIOVASCULAR DISEASE 08/19/16 Raul Santana MD CLINICAL CARDIAC ELECTROPHYSIOLOGY 06/16/17 Danny Blackwell MD 5 [place] [address] ORTHOPAEDIC SURGERY 05/01/19 Gayle Arce APRN, FINANCIAL AID DIRECTOR-C [address] [facility] [address] [place] [phone] NURSE PRACTITIONER 03/03/20 Mendel Shah DPM [address] [facility] [place] [address] Consulting Physician PODIATRY/SURGERY 06/27/23 06/26/24 documented as of this encounter
--- OUTSIDE RECORDS SUMMARY | 2024-04-23 04:22 | XMS_ITS | Encounter Summary ---
Author Organization [facility] Address [address] [place] [address]. [place] [address] [place] [address] Care Team Providers Care Executive Meeting Manager Name Role Phone Evaristo Allan MD Unavailable Unavailabl Raul Duran MD Unavailable Unavailabl e Danny Blackwell MD Unavailable [phone] Gayle Arce APRN, EGG SMELLER-C Unavailable Ti Bonilla MD Primary Care Provider Mendel Shah DPM Unavailable [phone] Reason for Visit * Reason Comments Echo (SCAN) Encounter Details Date Type Department Care Team (Late st Contact Info) Description 02/24/2023 Scan [facility] [address] [place] [address] Scanned, Doc Pccl Echo (SCAN) Social History Tobacco Use Types Packs/Day [...] 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 [address] [place] [address] Jyoti Escobar MD [address] [place] [address] documented as of this encounter Procedures Procedure Name Priority Date/Time Associated Diagnosis Comments ECHO GENERIC (SCAN ORDER) Routine 02/24/2023 documented in this encounter Results * ECHO (02/24/2023) Anatomical Region Laterality Modality Other us Doc Pccl Scanned SCANNING Final Result documented in this encounter Visit Diagnoses Not on filedocumented in this encounter Care Teams Executive Meeting Manager Relationship Specialty Start Date End Date Ti Bonilla MD [address] [place] [address] PCP - General FAMILY PRACTICE 12/03/21 Evaristo Allan MD [place] Principal Ios Developer CARDIOVASCULAR DISEASE 08/19/16 Raul Santana MD CLINICAL CARDIAC ELECTROPHYSIOLOGY 06/16/17 Danny Blackwell MD 5 [place] [address] ORTHOPAEDIC SURGERY 05/01/19 Gayle Arce APRN, EGG SMELLER-C [address] [facility] [address] [place] [phone] NURSE PRACTITIONER 03/03/20 Mendel Shah DPM [address] [place] [address] Consulting Physician PODIATRY/SURGERY 06/27/23 06/26/24 documented as of this encounter
--- OUTSIDE RECORDS SUMMARY | 2024-04-23 04:22 | XMS_ITS | Encounter Summary ---
Author Organization [facility] Address [address] [place] [address]. 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 [...] Contact Info) Description 04/25/2024 11:00 AM DRUG WORKER Appointment [facility] [address] [place] [address] [place] [address] Ti Bonilla MD [address] [place] [phone] 05/23/2024 3:30 PM DRUG WORKER [facility] [address] [facility] [place] [address] Jyoti Escobar MD [address] [place] [address] documented as of this encounter Visit Diagnoses Not on filedocumented in this encounter Care Teams Cloth Pattern Maker Relationship Specialty Start Date End Date Ti Bonilla MD [address] [place] [phone] PCP - General FAMILY PRACTICE 12/03/21 Evaristo Allan MD [place] Rib Sawyer CARDIOVASCULAR DISEASE 08/19/16 Raul Santana MD CLINICAL CARDIAC ELECTROPHYSIOLOGY 06/16/17 Danny Blackwell MD [address] [place] [address] ORTHOPAEDIC SURGERY 05/01/19 Gayle Arce, CRUSHER LOADER OPERATOR, COMPUTER SALESPERSON RETAIL-C [address] [phone] NURSE PRACTITIONER 03/03/20 documented as of this encounter
--- OUTSIDE RECORDS SUMMARY | 2024-04-23 04:22 | XMS_ITS | Encounter Summary ---
Author Organization [facility] Address [address] [place] [address]. [place], [place] [address] [place] [address] Care Team Providers Care Non Destructive Testing Engineer Name Role Phone Evaristo Allan MD Unavailable Unavailabl Raul Duran MD Unavailable Unavailabl Danny Lopes MD Unavailable [phone] Gayle Arce APRN, PLANT DIRECTOR-C Unavailable Ti Bonilla MD Primary Care Provider Encounter Details Date Type Department Care Team (Late st Contact Info) Description 11/03/2022 9:55 AM CDT - 11/03/2022 11:59 PM CDT Hospital Encounter [facility] [address] [place] [address] Olivia Pearson, MEDICAL STAFFING COORDINATOR [address] [place] [phone] Discharge Disposition: Home or Self Care (Routine [...] 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 12/26/2023 documented as of this encounter Progress Notes * Destini Martinez RN - 11/03/2022 10:00 AM CDTEncounter addended by: Destini Martinez RN on: 11/03/2022 11:04 AM Actions taken: MAR administration accepted documented in this encounter Plan of Treatment Upcoming Encounters Date Type Department Care Team (Late st Contact Info) Description 04/25/2024 11:00 AM BD SPECIAL EDUCATION TEACHER Appointment [facility] [address] [place] [address] Ti Bonilla MD [address] [place] [phone] 05/23/2024 3:30 PM BD SPECIAL EDUCATION TEACHER Office Visit [facility] [address] [place] [phone] Jyoti Escobar MD [address] [place] [address] documented as of this encounter Visit Diagnoses Diagnosis 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, with fat layer exposed (CMS/HCC HHS/HCC)- Primary documented in this encounter Administered Medications Inactive Administered Medications - up to 3 most recent administrations Medication Order MAR Action Action Date Dose Rate Site lidocaine 2 % URO-JET jelly Topical, Once, 1 dose, On Tue11/03/22 at 1100Indications: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, with fat layer exposed (CMS/HCC HHS/HCC) Given 11/03/2022 10:00 AM CDT documented in this encounter Care Teams Non Destructive Testing Engineer Relationship Specialty Start Date End Date Ti Bonilla MD [address] [place] [phone] PCP - General FAMILY PRACTICE 12/03/21 Evaristo Allan MD [place] Engineering Professor CARDIOVASCULAR DISEASE 08/19/16 Raul Santana MD CLINICAL CARDIAC ELECTROPHYSIOLOGY 06/16/17 Danny Blackwell MD 5 [place] [address] ORTHOPAEDIC SURGERY 05/01/19 Gayle Arce APRN, PLANT DIRECTOR-C [address] [facility] [address] [place] [address] NURSE PRACTITIONER 03/03/20 documented as of this encounter
--- OUTSIDE RECORDS SUMMARY | 2024-04-23 04:22 | XMS_ITS | Encounter Summary ---
Author Organization [facility] Address [address] [place] [address]. [place] [address] [place] [address] Care Team Providers Care Manager Primary Name Role Phone Evaristo Allan MD Unavailable Unavailabl Raul Duran MD Unavailable Unavailabl Danny Lopes MD Unavailable [phone] Gayle Arce APRN, WALLPAPER REMOVER STEAM-C Unavailable Ti Bonilla MD Primary Care Provider [phone] Mendel Shah DPSallie Unavailable [phone] Reason for Visit * Reason Onset Date Comments Other 07/07/2023 Heart monitor Encounter Details Date Type Department Care Team ([facility] Contact Info) Description 07/07/2023 [facility]phone [facility] [address] [place] [address] Alfredo Gonsales, PA-C [address] [place] [address] Other (Heart monitor) Social History Tobacco Use Types Packs/Day Years [...] Progress Notes * Cleveland Deras LPN - 08/23/2023 1:57 PM CDT Etienne noted. Thanks * Clevleand Deras LPN - 08/23/2023 12:55 PM CDT He asked about his two week heart monitor? He is going to [place] sometime next month. Patient never received it. * Lula Jean-Baptiste, Radiologic Technologist Chief - 07/07/2023 2:49 PM CDT We have not been able to get in touch with patient to arrange the heart monitor. 07/06/2023 Unable to LVM, need consent 07/05/2023 Unable to LVM, need consent 07/01/2023 Unable to LVM, need consent documented in this encounter Plan of Treatment Upcoming Encounters Date Type Department Care Team (Late st Contact Info) Description 04/25/2024 11:00 AM FIELD SPECIALIST Appointment [facility] [address] [place] [address] [place] [address] Ti Bonilla MD [address] [place] [phone] 05/23/2024 3:30 PM FIELD SPECIALIST Office Visit [facility] [address] [facility] [place] [address] Jyoti Escobar MD [address] [place] [address] documented as of this encounter Visit Diagnoses Not on filedocumented in this encounter Care Teams Manager Primary Relationship Specialty Start Date End Date Ti Bonilla MD [address] [place] [phone] PCP - General FAMILY PRACTICE 12/03/21 Evaristo Allan MD [place] Fashion Illustrator CARDIOVASCULAR DISEASE 08/19/16 Raul Santana MD CLINICAL CARDIAC ELECTROPHYSIOLOGY 06/16/17 Danny Blackwell MD [address] [place] [address] [phone] ORTHOPAEDIC SURGERY 05/01/19 Gayle Arce, WARP COILER, WALLPAPER REMOVER STEAM-C [address] [place] [address] [address] [place] [address] NURSE PRACTITIONER 03/03/20 Mendel Shah DPM [address] [facility] [address] Consulting Physician PODIATRY/SURGERY 06/27/23 06/26/24 documented as of this encounter
--- OUTSIDE RECORDS SUMMARY | 2024-04-23 04:22 | XMS_ITS | Encounter Summary ---
Author Organization [facility] Address [address] [place] [address]. [place], [place] [address] [place] [address] Care Team Providers Care Public Speaker Name Role Phone Evaristo Allan MD Unavailable Unavailabl Raul Duran MD Unavailable Unavailabl Danny Lopes MD Unavailable [phone] Gayle Arce APRN, WAXED BAG MACHINE OPERATOR-C Unavailable Ti Bonilla MD Primary Care Provider Encounter Details Date Type Department Care Team (Late st Contact Info) Description 10/27/2022 2:25 PM CDT - 10/27/2022 11:59 PM CDT Hospital Encounter [facility] [address] [place] [address] Olivia Pearson, INDEXER [address] [place] [phone] Discharge Disposition: Home or Self Care (Routine [...] 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 No / Unsure 09/29/2022 9:01 AM CDT documented as of this encounter Functional Status [...] Mancuso RN Active documented in this encounter Medications [...] TRUEPLUS PEN NEEDLES 31G X 8 MM [facility] 01/19/2021 aspirin EC 81 MG tablet Take [...] Progress Notes * Destini Martinez RN - 10/27/2022 2:30 PM CDTEncounter addended by: Destini Martinez RN on: 10/27/2022 3:16 PM Actions taken: MAR administration accepted documented in this encounter Plan of Treatment Upcoming Encounters Date Type Department Care Team (Late st Contact Info) Description 04/25/2024 11:00 AM ANESTHESIOLOGIST ATTENDING Appointment [facility] [address] [place] [address] Ti Bonilla MD [address] [place] [phone] 05/23/2024 3:30 PM ANESTHESIOLOGIST ATTENDING Office Visit [facility] [place] [phone] Jyoti Escobar MD [address] [place] [address] documented as of this encounter Visit Diagnoses Diagnosis 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, with fat layer exposed (CMS/HCC HHS/HCC)- Primary documented in this encounter Administered Medications Inactive Administered Medications - up to 3 most recent administrations Medication Order MAR Action Action Date Dose Rate Site lidocaine 2 % URO-JET jelly Topical, Once, 1 dose, On Tue10/27/22 at 1530Indications: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, with fat layer exposed (CMS/HCC HHS/HCC) Given 10/27/2022 3:16 PM CDT documented in this encounter Care Teams Public Speaker Relationship Specialty Start Date End Date Ti Bonilla MD [address] [place] [phone] PCP - General FAMILY PRACTICE 12/03/21 Evaristo Allan MD [place] [employer] Design Mechanical Engineer CARDIOVASCULAR DISEASE 08/19/16 Raul Santana MD CLINICAL CARDIAC ELECTROPHYSIOLOGY 06/16/17 Danny Blackwell MD [address] [place] [address] ORTHOPAEDIC SURGERY 05/01/19 Gayle Arce APRN, WAXED BAG MACHINE OPERATOR-C [address] [place] [address] [address] [place] [address] NURSE PRACTITIONER 03/03/20 documented as of this encounter
--- OUTSIDE RECORDS SUMMARY | 2024-04-23 04:22 | XMS_ITS | Encounter Summary ---
Author Organization [facility] Address [address] [place] [address]. 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 [...] st Contact Info) Description 04/25/2024 11:00 AM DIVERSIFIED CROPS SUPERVISOR Appointment [facility] [address] [place] [address] [place] [address] Ti Bonilla MD [address] [place] [phone] 05/23/2024 3:30 PM DIVERSIFIED CROPS SUPERVISOR Office Visit [facility] [address] [facility] [place] [phone] Jyoti Escobar MD [address] [place] [address] documented as of this encounter Visit Diagnoses Not on filedocumented in this encounter Care Teams Adobe Developer Relationship Specialty Start Date End Date Ti Bonilla MD [address] [place] [phone] PCP - General FAMILY PRACTICE 12/03/21 Evaristo Allan MD [place] Sales Route Driver Helper CARDIOVASCULAR DISEASE 08/19/16 Raul Santana MD CLINICAL CARDIAC ELECTROPHYSIOLOGY 06/16/17 Danny Blackwell MD [address] [place] [address] ORTHOPAEDIC SURGERY 05/01/19 Gayle Arce, CEMENT BLOCK MAKER, HIGHWAY MAINTENANCE WORKER-C [address] [facility] [address] [place] [address] NURSE PRACTITIONER 03/03/20 Mendel Shah DPM [address] [place] [address] Consulting Physician PODIATRY/SURGERY 06/27/23 06/26/24 documented as of this encounter
--- OUTSIDE RECORDS SUMMARY | 2024-04-23 04:22 | XMS_ITS | Encounter Summary ---
Author Organization [facility] Address [address] [place] [address]. [place], [place] [address] [place] [address] Care Team Providers Care Railcar Mechanic Name Role Phone Evaristo Allan MD Unavailable Unavailabl Raul Duran MD Unavailable Unavailabl Danny Lopes MD Unavailable [phone] Gayle Arce APRN, LUMBER INSPECTOR-C Unavailable Ti Bonilla MD Primary Care Provider Mendel Shah DPM Unavailable [phone] Reason for Referral * Imaging (Routine) - Closed Specialty Diagnoses / Procedures Referred By Charito ledbetter Referred To Contact Cardiology Diagnoses Atypical atrial flutter ([facility]) Procedures CLINIC - [address] [facility] - Today Alfredo Gonsales PA-C [address] [place] [address] Phone: tel: fax: Referral ID Status Reason Start Date Expiration Date Visits Re quested Visits Authorized [id number] Closed 06/30/2023 06/29/2024 1 1 Reason for Visit * Reason Onset Date Comments Holter Monitor 06/30/2023 Encounter Details Date Type Department Care Team ([facility] st Contact Info) Description 06/30/2023 Telephone [facility] [address] [place] [address] Alfredo Gonsales PA-C [address] [place] [address] Holter Monitor Social History Tobacco Use Types [...] 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 - Thank You. * Alfredo Gonsales PA-C - 06/30/2023 1:26 PM CDT Mail to patient, Humphrey to read, evaluate for persistent atypical atrial flutter, recurrent paroxysmal atrial fibrillation, bradycardia. documented in this encounter Plan of Treatment Upcoming Encounters Date Type Department Care Team (Late st Contact Info) Description 04/25/2024 11:00 AM CANINE DEPUTY Appointment [facility] [address] [facility] [place] [address] Ti Bonilla MD [address] [place] [phone] 05/23/2024 3:30 PM CANINE DEPUTY Office Visit [facility] [address] [facility] [place] [address] Jyoti Escobar MD [address] [place] [address] documented as of this encounter Results * CLINIC - [id number] [facility] - Today (10/08/2023 6:49 AM CDT) Narrative [facility] - 10/08/2023 6:49 AM CDT Ambulatory Law Examiner Report Patient Name: Evaristo Zelaya : 1960 [facility]: [id number] Date of Testin09/25/2023 Ordering Provider: MARKELL STEVENS [...] 80-100 bpm. Signed MARKELL STEVENS MD 10/12/2023 Alfredo Gonsales PA-C CV VASCULAR ORDERABLES [facility] al Result [facility] documented in this encounter Visit Diagnoses Diagnosis Atypical atrial flutter (CMS/HCC HHS/HCC)- Primary Atrial flutter Atypical atrial flutter (CMS/HCC HHS/HCC) Atrial flutter documented in this encounter Care Teams Railcar Mechanic Relationship Specialty Start Date End Date Ti Bonilla MD [address] [place] [phone] PCP - General FAMILY PRACTICE 12/03/21 Evaristo Allan MD [place] Tobacco Sweeper CARDIOVASCULAR DISEASE 08/19/16 Raul Santana MD CLINICAL CARDIAC ELECTROPHYSIOLOGY 06/16/17 Danny Blackwell MD [address] [place] [address] ORTHOPAEDIC SURGERY 05/01/19 Gayle Arce APRN, LUMBER INSPECTOR-C [address] [facility] [address] [place] [address] NURSE PRACTITIONER 03/03/20 Rolens, Mendel Graham DPM [address] [place] [address] Consulting Physician PODIATRY/SURGERY 06/27/23 06/26/24 documented as of this encounter
--- OUTSIDE RECORDS SUMMARY | 2024-04-23 04:22 | XMS_ITS | Encounter Summary ---
Author Organization [facility] Address [address] [place] [address]. 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 [address] Jyoti Escobar MD [address] [place] [phone] documented as of this encounter Visit Diagnoses Not on filedocumented in this encounter Care Teams Pre K Special Education Teacher Relationship Specialty Start Date End Date Ti Bonilla MD [address] [place] [phone] PCP - General FAMILY PRACTICE 12/03/21 Evaristo Allan MD [place] Automatic Mold Sander CARDIOVASCULAR DISEASE 08/19/16 Raul Santana MD CLINICAL CARDIAC ELECTROPHYSIOLOGY 06/16/17 Danny Blackwell MD [address] [place] [address] ORTHOPAEDIC SURGERY 05/01/19 Gayle Arce, HOLIDAY DETECTOR OPERATOR, TANK HOUSE OPERATOR HELPER-C [address] [phone] NURSE PRACTITIONER 03/03/20 documented as of this encounter
--- OUTSIDE RECORDS SUMMARY | 2024-04-23 04:22 | XMS_ITS | Encounter Summary ---
Author Organization [facility] Address [address] [place] [address]. [place], [place] [address] [place] [address] Care Team Providers Care Adhesive Bandage Making Operator Name Role Phone Evaristo Allan MD Unavailable Unavailabl Raul Duran MD Unavailable Unavailabl Danny Lopes MD Unavailable [phone] Gayle Arce APRN, COMMERCIAL ELECTRICIAN-C Unavailable Ti Bonilla MD Primary Care Provider [phone] Encounter Details Date Type Department Care Team (Late st Contact Info) Description 01/26/2023 9:30 AM CDT - 01/26/2023 11:59 PM CDT Hospital Encounter [facility] [address] [place] [address] Olivia Pearson, MAIL MACHINE OPERATOR [address] [place] [phone] Discharge Disposition: Home or Self Care (Routine [...] 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 [address] [place] [address] Ti Bonilla MD [address] [place] [phone] 05/23/2024 3:30 PM RETAIL ZONE SPECIALIST Office Visit [facility] [address] [place] [phone] Jyoti Escobar MD [address] [place] [address] documented as of this encounter Visit Diagnoses Diagnosis 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, with fat layer exposed (CMS/HCC HHS/HCC)- Primary documented in this encounter Administered Medications Inactive Administered Medications - up to 3 most recent administrations Medication Order MAR Action Action Date Dose Rate Site lidocaine 2 % URO-JET jelly Topical, Once, 1 dose, On Tue01/26/23 at 1145Indications: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, with fat layer exposed (CMS/HCC HHS/HCC) Given 01/26/2023 11:42 AM CDT documented in this encounter Care Teams Adhesive Bandage Making Operator Relationship Specialty Start Date End Date Ti Bonilla MD [address] [place] [phone] PCP - General FAMILY PRACTICE 12/03/21 Evarisot Allan MD [place] Dairy Nutrition Specialist CARDIOVASCULAR DISEASE 08/19/16 Raul Santana MD CLINICAL CARDIAC ELECTROPHYSIOLOGY 06/16/17 Danny Blackwell MD [address] [place] [address] ORTHOPAEDIC SURGERY 05/01/19 Gayle Arce APRN, COMMERCIAL ELECTRICIAN-C [address] [place] [address] [address] [place] [address] NURSE PRACTITIONER 03/03/20 documented as of this encounter
--- OUTSIDE RECORDS SUMMARY | 2024-04-23 04:22 | XMS_ITS | Encounter Summary ---
Author Organization [facility] Address [address] [place] [address]. 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 Not on [...] st Contact Info) Description 04/25/2024 11:00 AM FLEXO OPERATOR Appointment [facility] [address] [place] [address] [place] [address] Ti Bonilla MD [address] [place] [phone] 05/23/2024 3:30 PM FLEXO OPERATOR Office Visit [facility] [address] [facility] [phone] Jyoti Escobar MD [address] [place] [address] documented as of this encounter Visit Diagnoses Not on filedocumented in this encounter Care Teams Heavy Truck Driver Relationship Specialty Start Date End Date Ti Bonilla MD [address] [place] [phone] PCP - General FAMILY PRACTICE 12/03/21 Evaristo Allan MD [place] Nut Blanker Operator CARDIOVASCULAR DISEASE 08/19/16 Raul Santana MD CLINICAL CARDIAC ELECTROPHYSIOLOGY 06/16/17 Danny Blackwell MD [address] [place] [address] ORTHOPAEDIC SURGERY 05/01/19 Gayle Arce, HYDRO PLANT TECHNICIAN, INSULATION PROFESSIONAL-C [address] [facility] [address] [place] [address] NURSE PRACTITIONER 03/03/20 Mendel Shah DPM [address] [place] [address] Consulting Physician PODIATRY/SURGERY 06/27/23 06/26/24 documented as of this encounter
--- OUTSIDE RECORDS SUMMARY | 2024-04-23 04:22 | XMS_ITS | Encounter Summary ---
Author Organization [facility] Address [address] [place] [address]. [place] [address] [place] [address] Care Team Providers Care Stripper Cutter Machine Name Role Phone Evaristo Allan MD Unavailable Unavailabl Raul Duran MD Unavailable Unavailabl Danny Lopes MD Unavailable [phone] Gayle Arce APRN, ALIGNER-C Unavailable Ti Bonilla MD Primary Care Provider Mendel Shah DPM Unavailable [phone] Reason for Visit * Reason Onset Date Comments Record Request 06/30/2023 Encounter Details Date Type Department Care Team ([facility] Contact Info) Description 06/30/2023 Telephone [facility] [address] [place] [address] Gayle Arce APRN, ALIGNER-C [address] [facility] [address] [place] [address] Record Request Social History Tobacco [...] 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 * Gissel [place] - 07/04/2023 12:27 PM CDT Records received, scanning in now. * Chelsea Garcia LPN - 07/04/2023 10:52 AM CDT Spoke with Alena at [facility] , she will fax over discharge summary to [phone]. * Gayle Arce APRN, NP-C - 07/01/2023 5:56 PM CDT Reviewed records. Echocardiogram revealed an LVEF 40-45%, and no ischemia on nuclear stress test. Harvey not see any hospital notes or discharge summary. Did we get these? * Gissel [place] - 07/01/2023 3:51 PM CDT Records received, sent to be scanned. * Chelsea Garcia LPN - 06/30/2023 3:56 PM CDT Fax cover sheet requesting stress test, discharge note and any other cardiac testing be faxed to [phone]. This request was faxed to [facility] at [phone]. * Chelsea Garcia LPN - 06/30/2023 3:55 PM CDT Images from the original note were not included. Message Received: Today Gayle Arce APRN, NP-C P Pccl Tammy Yazmin Nurse I need records from his hospitalization in [place]. He was hospitalized at [facility] in [place] in February. Phone number on their website is [phone]. He apparently had a stress test. I need a discharge note, and any other cardiac testing he had performed. documented in this encounter Plan of Treatment Upcoming Encounters Date Type Department Care Team (Late st Contact Info) Description 04/25/2024 11:00 AM INVESTIGATIVE ASSISTANT Appointment [facility] [address] [place] [address] Ti Bonilla MD [address] [place] [phone] 05/23/2024 3:30 PM INVESTIGATIVE ASSISTANT Office Visit [facility] [address] [place] [phone] Jyoti Escobar MD [address] [place], [place] [phone] documented as of this encounter Visit Diagnoses Not on filedocumented in this encounter Care Teams Stripper Cutter Machine Relationship Specialty Start Date End Date Ti Bonilla MD [address] [place] [phone] PCP - General FAMILY PRACTICE 12/03/21 Evaristo Allan MD [place] Dairy Hand CARDIOVASCULAR DISEASE 08/19/16 Raul Santana MD CLINICAL CARDIAC ELECTROPHYSIOLOGY 06/16/17 Danny Blackwell MD 5 [place] [address] ORTHOPAEDIC SURGERY 05/01/19 Gayle Arce APRN, ALIGNER-C [address] [facility] [address] [place] [phone] NURSE PRACTITIONER 03/03/20 Mendel Shah DPM [facility] [facility] [place] [address] Consulting Physician PODIATRY/SURGERY 06/27/23 06/26/24 documented as of this encounter
--- OUTSIDE RECORDS SUMMARY | 2024-04-23 04:22 | XMS_ITS | Encounter Summary ---
Author Organization [facility] Address [address] [place] [address]. [place], [place] [address] [place] [address] Care Team Providers Care Production Shift Supervisor Name Role Phone Evaristo Allan MD Unavailable Unavailabl aRul Duran MD Unavailable Unavailabl Danny Lopes MD Unavailable [phone] Gayle Arce APRN, TOOLMAKER GRADE THREE-C Unavailable Ti Bonilla MD Primary Care Provider Mendel Shah DPM Unavailable [phone] Encounter Details Date Type Department Care Team (Late st Contact Info) Description 02/23/2023 Scan [facility] [address] [place] [phone] Scanned, Doc Pccl Social History Tobacco Use [...] 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 [address] [place] [address] [place] [address] Ti Bonilla MD [address] [place] [phone] 05/23/2024 3:30 PM SENIOR DIRECTOR INSIGHT Office Visit [facility] [place] [place] [phone] Jyoti Escobar MD [address] [place] [address]86[address] documented as of this encounter Visit Diagnoses Not on filedocumented in this encounter Care Teams Production Shift Supervisor Relationship Specialty Start Date End Date Ti Bonilla MD [address] [place] [phone] PCP - General FAMILY PRACTICE 12/03/21 Evaristo Allan MD [place] Electrician Elevator Maintenance CARDIOVASCULAR DISEASE 08/19/16 Raul Santana MD CLINICAL CARDIAC ELECTROPHYSIOLOGY 06/16/17 Danny Blackwell MD 5 [place], [place] [phone] ORTHOPAEDIC SURGERY 05/01/19 Gayle Arce, BARBARA, TOOLMAKER GRADE THREE-C 619 [facility] 47 [place] [address] NURSE PRACTITIONER 03/03/20 Mendel Shah DPM [address] [place] [address] [phone] Consulting Physician PODIATRY/SURGERY 06/27/23 06/26/24 documented as of this encounter
--- OUTSIDE RECORDS SUMMARY | 2024-04-23 04:22 | XMS_ITS | Encounter Summary ---
Author Organization [facility] Address [address] [place] [address]. 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 Not [...] st Contact Info) Description 04/25/2024 11:00 AM ENTERPRISE SECURITY ARCHITECT Appointment [facility] [address] [place] [address] [place] [address] Ti Bonilla MD [address] [place] [phone] 05/23/2024 3:30 PM ENTERPRISE SECURITY ARCHITECT [facility] [address] [facility] [place] [address] Jyoti Escobar MD [address] [place] [address]291 documented as of this encounter Visit Diagnoses Not on filedocumented in this encounter Care Teams Race Starter Relationship Specialty Start Date End Date Ti Bonilla MD [address] [place] [phone] PCP - General FAMILY PRACTICE 12/03/21 Evaristo Allan MD [place] Licensing Officer CARDIOVASCULAR DISEASE 08/19/16 Raul Santana MD CLINICAL CARDIAC ELECTROPHYSIOLOGY 06/16/17 Danny Blackwell MD 725 [place] [address] ORTHOPAEDIC SURGERY 05/01/19 Gayle Arce, ASSEMBLY MECHANIC, GREEN CHAIN PULLER-C [address] [phone] NURSE PRACTITIONER 03/03/20 documented as of this encounter
--- OUTSIDE RECORDS SUMMARY | 2024-04-23 04:22 | XMS_ITS | Encounter Summary ---
Author Organization [facility] Address [address] [place] [address]. [place], [place] [address] [place] [address] Care Team Providers Care Ski Lift Operator Name Role Phone Evaristo Allan MD Unavailable Unavailabl Raul Duran MD Unavailable Unavailabl Danny Lopes MD Unavailable [phone] Gayle Arce APRN, CROSS ROLLER-C Unavailable Ti Bonilla MD Primary Care Provider Mendel Shah DPSallie Unavailable [phone] Encounter Details Date Type Department Care Team (Late st Contact Info) Description 06/27/2023 11:25 AM CDT - 06/27/2023 11:59 PM CDT Hospital Encounter 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 100 tablet 10/18/2019 4 atorvastatin 40 MG tablet Take 0.5 tablets (20 mg total) by mouth nightly at bedtime. 4 BASAGLAR KWIKPEN 100 UNIT/ML injection (PEN) Inject 50 Units into the skin nightly at bedtime. 06/24/2023 4 famotidine 40 MG tablet Take 1 tablet (40 mg total) by mouth 2 (two) times daily. 12/06/2020 4 furosemide (LASIX) 20 MG tablet TAKE TWO TABLETS BY MOUTH DAILY 60 tablet 10/21/2022 4 furosemide (LASIX) 40 MG tablet Take 1 tablet (40 mg total) by mouth daily. 06/23/2023 4 gabapentin (NEURONTIN) 400 MG capsule Take 1 capsule (400 mg total) by mouth 3 (three) times daily. 06/23/2023 4 gabapentin 300 MG capsule Take 300 mg by mouth 3 (three) times daily. 02/06/2018 4 LEVEMIR 100 UNIT/ML injection Inject 44 Units into the skin nightly at bedtime. 12/29/2017 4 LEVEMIR FLEXPEN 100 UNIT/ML PEN Inject 50 Units into the skin 3 (three) times daily. 03/01/2023 4 lisinopril (PRINIVIL) 5 MG tablet Take 1 tablet (5 mg total) by mouth daily. 06/23/2023 4 metoprolol succinate ER (TOPROL-XL) 100 MG 24 hr tablet Take 1 tablet (100 mg total) by mouth daily. 30 tablet 5 11/03/2021 4 nitroglycerin 0.[address] 1 tablet (0.4 mg total) under the tongue every 5 (five) minutes as needed for Chest Pain. 25 tablet 1 01/04/2018 4 PRADAXA 150 MG Cap TAKE ONE CAPSULE BY MOUTH TWICE A DAY 180 capsule 1 08/10/2021 4 tamsulosin 0.4 MG Cap Take 1 capsule (0.4 mg total) by mouth daily. 4 documented as of this encounter Plan of Treatment Upcoming Encounters Date Type Department Care Team (Late st Contact Info) Description 04/25/2024 11:00 AM CERTIFIED LACTATION EDUCATOR Appointment [facility] [address] [place] [address] Ti Bonilla MD [address] [place] [phone] 05/23/2024 3:30 PM CERTIFIED LACTATION EDUCATOR Office Visit [facility] [address] [place] [address] Jyoti Escobar MD [address] [place] [address] [phone] documented as of this encounter Procedures Procedure Name Priority Date/Time Associated Diagnosis Comments XR FOOT LT 3V Routine 06/27/2023 11:37 AM CDT Diabetic foot ulcer ([facility]) documented in this encounter Results * XR FOOT LT 3V (06/27/2023 11:37 AM CDT) Anatomical Region Laterality Modality Foot Radiographic Shannan ging 06/27/2023 12:1 8 PM CDT Impressions 06/27/2023 12:22 PM CDT IMPRESSION: 1. No acute findings. 2. Calcaneal spurs. Ordered By: TOMMY CUMMINGS Interpreted By: Matteo Buenrostro MD, 06/27/2023 12:18 PM Narrative 06/27/2023 12:22 PM CDT Examination: Left foot. Exam time: 1121 hours. Clinical history: Lateral sided pain for several months. No known injury. Diabetic ulcer of the great toe. Comparison: 06/27/2023. Technique: Three views. Findings: No fracture, dislocation or other acute bony abnormality is identified. ??Calcaneocuboid arthrodesis and orthopedic anchor in the cuboid again evident. There are scattered arthritic changes, in keeping with age. Small plantar and moderate-sized Achilles calcaneal spurs again noted. No other significant bone or joint abnormality is noted.Atherosclerotic calcification is noted. The soft tissues are otherwise unremarkable. No soft tissue gas or foreign body is identified. Procedure Note Matteo Buenrostro MD - 06/27/2023 Examination: Left foot. Exam time: 1121 hours. Clinical history: Lateral sided pain for several months. No known injury.Diabetic ulcer of the great toe. Comparison: 06/27/2023. Technique: Three views. Findings: No fracture, dislocation or other acute bony abnormality isidentified. Calcaneocuboid arthrodesis and orthopedic anchor in thecuboid again evident. There are scattered arthritic changes, in keepingwith age. Small plantar and moderate- sized Achilles calcaneal spurs againnoted. No other significant bone or joint abnormality isnoted.Atherosclerotic calcification is noted. The soft tissues areotherwise unremarkable. No soft tissue gas or foreign body isidentified. IMPRESSION: 1. No acute findings. 2. Calcaneal spurs. Ordered By: TOMMY CUMMINGS Interpreted By: Matteo Buenrostro MD, 06/27/2023 12:18 PM Tommy Cummings CROSS ROLLER GENERAL IMAGING Fin al Result documented in this encounter Visit Diagnoses Diagnosis Diabetic foot ulcer (CMS/HCC HHS/HCC) Type II or unspecified type diabetes mellitus with other specified manifestations, not stated as uncontrolled documented in this encounter Care Teams Ski Lift Operator Relationship Specialty Start Date End Date Ti Bonilla MD [address] [place] [address] PCP - General FAMILY PRACTICE 12/03/21 Evaristo Allan MD [place] Linoleum Layer CARDIOVASCULAR DISEASE 08/19/16 Raul Santana MD CLINICAL CARDIAC ELECTROPHYSIOLOGY 06/16/17 Danny Blackwell MD [address] [place] [address] ORTHOPAEDIC SURGERY 05/01/19 Gayle Arce, MANAGER DISTRIBUTION, CROSS ROLLER-C 619 [facility] [address] [place] [address] NURSE PRACTITIONER 03/03/20 Mendel Shah DPM [address] [place] [address] Consulting Physician PODIATRY/SURGERY 06/27/23 06/26/24 documented as of this encounter
--- OUTSIDE RECORDS SUMMARY | 2024-04-23 04:22 | XMS_ITS | Encounter Summary ---
Author Organization [facility] Address [address] [place] [address]. 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 Not on [...] st Contact Info) Description 04/25/2024 11:00 AM PRESCHOOL ASSISTANT TEACHER Appointment [facility] [address] [place] [address] [place] [address] Ti Bonilla MD [address] [place] [phone] 05/23/2024 3:30 PM PRESCHOOL ASSISTANT TEACHER [facility] 12[address] [facility] [place] [address] Jyoti Escobar MD [address] [place] [address] [phone] documented as of this encounter Visit Diagnoses Not on filedocumented in this encounter Care Teams Clipman Relationship Specialty Start Date End Date Ti Bonilla MD [address] [place] [phone] PCP - General FAMILY PRACTICE 12/03/21 Evaristo Allan MD [place] Scale Attendant CARDIOVASCULAR DISEASE 08/19/16 Raul Santana MD CLINICAL CARDIAC ELECTROPHYSIOLOGY 06/16/17 Danny Blackwell MD 725 [place] [address] ORTHOPAEDIC SURGERY 05/01/19 Gayle Arce, IV THERAPY NURSE, MILK COLLECTOR-C [address] [phone] NURSE PRACTITIONER 03/03/20 documented as of this encounter
--- OUTSIDE RECORDS SUMMARY | 2024-04-23 04:22 | XMS_ITS | Encounter Summary ---
Author Organization [facility] Address [address] [place] [address]. [place], [place] [address] [place] [address] Care Team Providers Care Office Professionals Name Role Phone Evaristo Allan MD Unavailable Unavailabl Raul Duran MD Unavailable Unavailabl Danny Lopes MD Unavailable [phone] Gayle Arce APRN, FURRIER SHOP SUPERVISOR-C Unavailable Ti Bonilla MD Primary Care Provider Encounter Details Date Type Department Care Team (Late st Contact Info) Description 12/29/2022 10:52 AM CDT - 12/29/2022 11:59 PM CDT Hospital Encounter [facility] [address] [place] [address] Olivia Pearson, REIMBURSEMENT COUNSELOR [address] [place] [phone] Discharge Disposition: Home or Self Care (Routine [...] 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 [address] [place] [address] [place] [address] Ti Bonilla MD [address] [place] [phone] 05/23/2024 3:30 PM SUPPLY COORDINATOR Office Visit [facility] [address] [place] [address] Jyoti Escobar MD [address] [place] [address] documented as of this encounter Visit Diagnoses Not on filedocumented in this encounter Care Teams Office Professionals Relationship Specialty Start Date End Date Ti Bonilla MD [address] [place], [place] [phone] PCP - General FAMILY PRACTICE 12/03/21 Evaristo Allan MD [place] [employer]ence [employer] Instructor CARDIOVASCULAR DISEASE 08/19/16 Raul Santana MD CLINICAL CARDIAC ELECTROPHYSIOLOGY 06/16/17 Danny Blackwell MD 5 [place] [address] ORTHOPAEDIC SURGERY 05/01/19 Gayle Arce, APPLICATION DEVELOPMENT INTERN, FURRIER SHOP SUPERVISOR-C [address] [facility] [place] [place] 47 [place] [address] NURSE PRACTITIONER 03/03/20 documented as of this encounter
--- OUTSIDE RECORDS SUMMARY | 2024-04-23 04:22 | XMS_ITS | Encounter Summary ---
Author Organization [facility] Address [address] [place] [address]. 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 Not on [...] st Contact Info) Description 04/25/2024 11:00 AM SOCK EXAMINER Appointment [facility] [address] [place] [address] [place] [address] Ti Bonilla MD [address] [place] [phone] 05/23/2024 3:30 PM SOCK EXAMINER Office Visit [facility] [address] [facility] [place] [phone] Jyoti Escobar MD [address] [place] [address] documented as of this encounter Visit Diagnoses Not on filedocumented in this encounter Care Teams Artificial Glass Eye Maker Relationship Specialty Start Date End Date Ti Bonilla MD [address] [place] [phone] PCP - General FAMILY PRACTICE 12/03/21 Evaristo Allan MD [place] Shovel Operator CARDIOVASCULAR DISEASE 08/19/16 Raul Santana MD CLINICAL CARDIAC ELECTROPHYSIOLOGY 06/16/17 Danny Blackwell MD 725 [place] [address] ORTHOPAEDIC SURGERY 05/01/19 Gayle Arce, MATH AND SCIENCE INSTRUCTOR, MANAGER OF HOUSEKEEPING-C 619 [facility] [address] [place] [address] NURSE PRACTITIONER 03/03/20 Mendel Shah DPM 1215 [place] [address] Consulting Physician PODIATRY/SURGERY 06/27/23 06/26/24 documented as of this encounter
--- OUTSIDE RECORDS SUMMARY | 2024-04-23 04:22 | XMS_ITS | Encounter Summary ---
Author Organization [facility] Address [address] [place] [address]. 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 [...] st Contact Info) Description 04/25/2024 11:00 AM DIAL EQUIPMENT ENGINEER Appointment [facility] [address] [place] [address] [place] [address] Ti Bonilla MD [address] [place] [phone] 05/23/2024 3:30 PM DIAL EQUIPMENT ENGINEER [facility] [address] [facility] [address] Jyoti Escobar MD [address] [place] [address] 877271 documented as of this encounter Visit Diagnoses Not on filedocumented in this encounter Care Teams Product Safety Test Engineer Relationship Specialty Start Date End Date Ti Bonilla MD [address] [place] [phone] PCP - General FAMILY PRACTICE 12/03/21 Evaristo Allan MD [place] Machine Tool Operator CARDIOVASCULAR DISEASE 08/19/16 Raul Santana MD CLINICAL CARDIAC ELECTROPHYSIOLOGY 06/16/17 Danny Blackwell MD 725 [place] [address] ORTHOPAEDIC SURGERY 05/01/19 Gayle Arce, MILKING WORKER, STONE TRIMMER-C [address] [phone] NURSE PRACTITIONER 03/03/20 documented as of this encounter
--- OUTSIDE RECORDS SUMMARY | 2024-04-23 04:22 | XMS_ITS | Encounter Summary ---
Author Organization [facility] Address [address] [place] [address]. [place] [address] [place] [address] Care Team Providers Care Carriage Rider Name Role Phone Evaristo Allan MD Unavailable Unavailabl Raul Duran MD Unavailable Unavailabl e Danny Blcakwell MD Unavailable [phone] Gayle Arce APRN, CASINO SURVEILLANCE OFFICER-C Unavailable Ti Bonilla MD Primary Care Provider Mendel Shah DPM Unavailable [phone] Reason for Visit * Reason Comments ECG (SCAN) Lab (SCAN) Encounter Details Date Type Department Care Team (Late st Contact Info) Description 06/24/2023 Scan [facility] [address] [place] [phone] Scanned, Doc Pccl ECG (SCAN); Lab (SCAN) Social History Tobacco Use Types Packs/Day [...] 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 [address] [place] [address] Ti Bonilla MD [address] [place] [phone] 05/23/2024 3:30 PM APPAREL EMBROIDERY DIGITIZER Office Visit [facility] [address] [place] [phone] Jyoti Escobar MD [address] [place] [address] documented as of this encounter Procedures Procedure Name Priority Date/Time Associated Diagnosis Comments ECG GENERIC (SCAN ORDER) Routine 06/24/2023 12:00 AM APPAREL EMBROIDERY DIGITIZER OUTSIDE LAB (SCAN ORDER) Routine 06/24/2023 12:00 AM APPAREL EMBROIDERY DIGITIZER documented in this encounter Results * OUTSIDE LAB (06/24/2023 12:00 AM APPAREL EMBROIDERY DIGITIZER) 06/24/2023 us Doc Pccl Scanned SCANNING Final Result Performing Organization Address City/[facility]/ZIP Co de Phone Number HS ONBASE * ECG (06/24/2023 12:00 AM APPAREL EMBROIDERY DIGITIZER) 06/24/2023 us Doc Pccl Scanned SCANNING Final Result Performing Organization Address City/[facility]/ZIP Co de Phone Number HS ONBASE documented in this encounter Visit Diagnoses Not on filedocumented in this encounter Care Teams Carriage Rider Relationship Specialty Start Date End Date Ti Bonilla MD [address] [place] [phone] PCP - General FAMILY PRACTICE 12/03/[address] Truck Dock Material Mover CARDIOVASCULAR DISEASE 08/19/16 Raul Santana MD CLINICAL CARDIAC ELECTROPHYSIOLOGY 06/16/17 Danny Blackwell MD 725 [place], [place] [phone] ORTHOPAEDIC SURGERY 05/01/19 Gayle Arce APRN, CASINO SURVEILLANCE OFFICER-C 6[address] [facility] [address] [place] [phone] NURSE PRACTITIONER 03/03/20 Mendel Shah DPM [facility]5 [facility] [place] [address] Consulting Physician PODIATRY/SURGERY 06/27/23 06/26/24 documented as of this encounter
--- OUTSIDE RECORDS SUMMARY | 2024-04-23 04:22 | XMS_ITS | Encounter Summary ---
Author Organization [facility] Address [address] [place] [address]. [place] [address] [place] [address] Care Team Providers Care Assessment Manager Name Role Phone Evaristo Allan MD Unavailable Unavailabl Raul Duran MD Unavailable Unavailabl e Danny Blackwell MD Unavailable [phone] Gayle Arce APRN, TEA BAG PACKER-C Unavailable [phone] Ti Bonilla MD Primary Care Provider [phone] Mendel Shah DPM Unavailable [phone] Reason for Visit * Reason Comments ECG (SCAN) Encounter Details Date Type Department Care Team (Late st Contact Info) Description 02/23/2023 [facility] [address] [place] [address] Scanned, Doc Pccl ECG (SCAN) Social History Tobacco Use Types Packs/Day [...] 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 [address] Ti Bonilla MD [address] [place] [phone] 05/23/2024 3:30 PM POLE TRUCK DRIVER [facility] [address] [place] [address] Jyoti Escobar MD [address] [place] [address] documented as of this encounter Procedures Procedure Name Priority Date/Time Associated Diagnosis Comments ECG GENERIC (SCAN ORDER) Routine 02/23/2023 documented in this encounter Results * ECG (02/23/2023) us Doc Pccl Scanned SCANNING Final Result HS ONBASE documented in this encounter Visit Diagnoses Not on filedocumented in this encounter Care Teams Assessment Manager Relationship Specialty Start Date End Date Ti Bonilla MD 715 [place] [address] PCP - General FAMILY PRACTICE 12/03/21 Evaristo Allan MD [place] Gallery Host CARDIOVASCULAR DISEASE 08/19/16 Rual Santana MD CLINICAL CARDIAC ELECTROPHYSIOLOGY 06/16/17 Danny Blackwell MD 725 [place] [address] ORTHOPAEDIC SURGERY 05/01/19 Gayle Arce APRN, TEA BAG PACKER-C 619 [facility] 47 [place] [phone] NURSE PRACTITIONER 03/03/20 Mendel Shah DPM 1215 [place] [address] Consulting Physician PODIATRY/SURGERY 06/27/23 06/26/24 documented as of this encounter
--- OUTSIDE RECORDS SUMMARY | 2024-04-23 04:22 | XMS_ITS | Encounter Summary ---
Author Organization [facility] Address [address] [place] [address]. [place], [place] [address] [place] [address] Care Team Providers Care Biological Engineer Name Role Phone Evaristo Allan MD Unavailable Unavailabl Raul Duran MD Unavailable Unavailabl e Danny Blackwell MD Unavailable [phone] Gayle Arce APRN, IN CLASSROOM TUTOR-C Unavailable [phone] Ti Bonilla MD Primary Care Provider [phone] Mendel Shah DPM Unavailable [phone] Reason for Referral * Consultation (Routine) - Pending Review Specialty Diagnoses / Procedures Referred By Charito ledbetter Referred To Contact PODIATRY/SURGERY Diagnoses 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, limited to breakdown of skin ([facility]) Procedures OFFICE/OUTPATIENT NEW LOW MDM 30-44 MINUTES OFFICE/OUTPT VISIT,NEW,LEVL IV OFFICE/OUTPT VISIT,NEW,LEVL V OFFICE/OUTPT VISIT,EST,LEVL III OFFICE/OUTPT VISIT,EST,LEVL IV OFFICE/OUTPT VISIT,EST,LEVL V Olivia Pearson FNP [address] [place] [address] Phone: tel: fax: Mendel Shah, DPM [address] [place] [address] Phone: tel: fax: Referral ID Status Reason Start Date Expiration Date Visits Requested Visits Authorized [id number] Pending Review Specialty Services 06/27/2023 06/26/2024 1 1 Encounter Details Date Type Department Care Team (Late st Contact Info) Description 06/27/2023 10:00 AM CDT - 06/27/2023 11:24 AM CDT Hospital Encounter 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 [place] [address] Ti Bonilla MD [address] [place] [phone] 05/23/2024 3:30 PM BASKET WEAVER Office Visit [facility] [address] [place] [phone] Jyoti Escobar MD [address] [place] [address] Scheduled Referrals Name Type Priority Associated Diagnoses Orde r Schedule Ambulatory referral to Podiatry Referral Routine 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, limited to breakdown of skin ([facility]) Ordered: 06/27/2023 documented as of this encounter Visit Diagnoses Diagnosis 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, limited to breakdown of skin ([facility])- Primary documented in this encounter Care Teams Biological Engineer Relationship Specialty Start Date End Date Ti Bonilla MD [address] [place] [phone] PCP - General FAMILY PRACTICE 12/03/21 Evaristo Allan MD [place] Wood Patternmaker Apprentice CARDIOVASCULAR DISEASE 08/19/16 Raul Santana MD CLINICAL CARDIAC ELECTROPHYSIOLOGY 06/16/17 Danny Blackwell MD [address] [place] [address] ORTHOPAEDIC SURGERY 05/01/19 Gayle Arce APRN, IN CLASSROOM TUTOR-C [address] [facility] [address] [place] [address] NURSE PRACTITIONER 03/03/20 Mendel Shah DPM [address] [place] [address] [place] [address] Consulting Physician PODIATRY/SURGERY 06/27/23 06/26/24 documented as of this encounter
--- OUTSIDE RECORDS SUMMARY | 2024-04-23 04:22 | XMS_ITS | Encounter Summary ---
Author Organization [facility] Address [address] [place] [address]. [place], [place] [address] [place] [address] Care Team Providers Care Professor Of Historical Theology Name Role Phone Evaristo Allan MD Unavailable Unavailabl Raul Duran MD Unavailable Unavailabl Danny Lopes MD Unavailable [phone] Gayle Arce APRN, WAFFLE MACHINE OPERATOR-C Unavailable Ti Bonilla MD Primary Care Provider Encounter Details Date Type Department Care Team (Late st Contact Info) Description 11/17/2022 11:20 AM CDT - 11/17/2022 11:59 PM CDT Hospital Encounter [facility] [address] [place] [address] Olivia Pearson, REPAIR WEAVER [address] [place] [id number] Discharge Disposition: Home or Self Care (Routine [...] 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 [...] Progress Notes * Ashley Schaeffer RN - 11/17/2022 11:30 AM CDTEncounter addended by: Ashley Schaeffer RN on: 11/17/2022 3:08 PM Actions taken: MAR administration accepted * Nusrat Schulz - 11/17/2022 11:30 AM CDTEncounter addended by: Nusrat Schulz on: 11/26/2022 2:48 PM Actions taken: Charge Capture section accepted documented in this encounter Plan of Treatment Upcoming Encounters Date Type Department Care Team (Late st Contact Info) Description 04/25/2024 11:00 AM HEDDLE MACHINE OPERATOR Appointment [facility] [address] [place] [address] [place] [address] Ti Bonilla MD [address] [place] [phone] 05/23/2024 3:30 PM HEDDLE MACHINE OPERATOR Office Visit [facility] [place] [address] Jyoti Escobar MD [address] [place], [place] [phone] documented as of this encounter Visit Diagnoses Diagnosis Type 2 diabetes mellitus with foot ulcer (CODE) ([facility])- Primary documented in this encounter Administered Medications Inactive Administered Medications - up to 3 most recent administrations Medication Order MAR Action Action Date Dose Rate Site lidocaine 2 % URO-JET jelly Topical, Once, 1 dose, On Tue11/17/22 at 1315Indications:Type 2 diabetes mellitus with foot ulcer (CODE) ([facility]) Given 11/17/2022 12:18 PM CDT documented in this encounter Care Teams Professor Of Historical Theology Relationship Specialty Start Date End Date Ti Bonilla MD [address] [place] [phone] PCP - General FAMILY PRACTICE 12/03/21 Evaristo Allan MD [place] Clinical Research Associate CARDIOVASCULAR DISEASE 08/19/16 Raul Santana MD CLINICAL CARDIAC ELECTROPHYSIOLOGY 06/16/17 Danny Blackwell MD [address] [place] [address] ORTHOPAEDIC SURGERY 05/01/19 Gayle Arce, AIR QUALITY CONSULTANT, WAFFLE MACHINE OPERATOR-C 9 [facility] [address]P57 [place] [address] NURSE PRACTITIONER 03/03/20 documented as of this encounter
--- OUTSIDE RECORDS SUMMARY | 2024-04-23 04:22 | XMS_ITS | Encounter Summary ---
Author Organization [facility] Address [address] [place] [address]. 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 [address] Jyoti Escobar MD [address] [place] [phone] documented as of this encounter Visit Diagnoses Not on filedocumented in this encounter Care Teams Factory Representative Relationship Specialty Start Date End Date Ti Bonilla MD [address] [place] [phone] PCP - General FAMILY PRACTICE 12/03/21 Evaristo Allan MD [place] Industrial Relations Officer CARDIOVASCULAR DISEASE 08/19/16 Raul Santana MD CLINICAL CARDIAC ELECTROPHYSIOLOGY 06/16/17 Danny Blackwell MD [address] [place] [address] ORTHOPAEDIC SURGERY 05/01/19 Gayle Arce, BIOLOGY LECTURER, WAX CUTTER-C [address] [phone] NURSE PRACTITIONER 03/03/20 documented as of this encounter
--- OUTSIDE RECORDS SUMMARY | 2024-04-23 04:22 | XMS_ITS | Encounter Summary ---
Author Organization [facility] Address [address] [place] [address]. 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 [place] [address] Jyoti Escobar MD [address] [place] [address] [phone] documented as of this encounter Visit Diagnoses Not on filedocumented in this encounter Care Teams Commercial Relationship Manager Relationship Specialty Start Date End Date Ti Bonilla MD [address] [place] [phone] PCP - General FAMILY PRACTICE 12/03/21 Evaristo Allan MD [place] Service Line Layer CARDIOVASCULAR DISEASE 08/19/16 Raul Santana MD CLINICAL CARDIAC ELECTROPHYSIOLOGY 06/16/17 Danny Blackwell MD [address] [place] [address] ORTHOPAEDIC SURGERY 05/01/19 Gayle Arce, PERSONAL LOAN SPECIALIST, BOOKKEEPING CLERKS SUPERVISOR-C [address] [phone] NURSE PRACTITIONER 03/03/20 documented as of this encounter
--- OUTSIDE RECORDS SUMMARY | 2024-04-23 04:22 | XMS_ITS | Encounter Summary ---
Author Organization [facility] Address [address] [place] [address]. 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 [address] [place] [address] [place] [address] Ti Bonilla MD [address] [place] [phone] 05/23/2024 3:30 PM BUSINESS SERVICES MANAGER Office Visit [facility] [place] [phone] Jyoti Escobar MD [address] [place] [address] documented as of this encounter Visit Diagnoses Not on filedocumented in this encounter Care Teams Field Coil Winder Relationship Specialty Start Date End Date Ti Bonilla MD [address] [place] [phone] PCP - General FAMILY PRACTICE 12/03/21 Evaristo Allan MD [place] Reference Data Expert CARDIOVASCULAR DISEASE 08/19/16 Raul Santana MD CLINICAL CARDIAC ELECTROPHYSIOLOGY 06/16/17 Danny Blackwell MD 5 [place] [address] ORTHOPAEDIC SURGERY 05/01/19 Gayle Arce, BARBARA, INVESTMENT REPRESENTATIVE-C 6[address] E [facility] 47 [place] [phone] NURSE PRACTITIONER 03/03/20 documented as of this encounter
--- OUTSIDE RECORDS SUMMARY | 2024-04-23 04:22 | XMS_ITS | Encounter Summary ---
Author Organization [facility] Address [address] [place] [address]. [place] [address] [place] [address] Care Team Providers Care Data Entry Associate Name Role Phone Eavristo Allan MD Unavailable Unavailabl Raul Duran MD Unavailable Unavailabl Danny Lopes MD Unavailable [phone] Gayle Arce PRESCHOOL DISABILITY TEACHER, HOME COORDINATOR-C Unavailable [phone] Ti Bonilla MD Primary Care Provider Mendel Shah DPM Unavailable [phone] Encounter Details Date Type Department Care Team (Late st Contact Info) Description 06/30/2023 Orders Only [facility] [address] [place] [address] Alfredo Gonsales, PA-C [address] [place] [address] Social History Tobacco Use Types [...] 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 Not on [...] st Contact Info) Description 04/25/2024 11:00 AM SANITOR Appointment [facility] [address] [place] [address] Ti Bonilla MD [address] [place] [phone] 05/23/2024 3:30 PM SANITOR Office Visit [facility] [address] [place] [phone] Jyoti Escobar MD [address] [place] [phone] documented as of this encounter Visit Diagnoses Not on filedocumented in this encounter Care Teams Data Entry Associate Relationship Specialty Start Date End Date Ti Bonilla MD [address] [place] [address] PCP - General FAMILY PRACTICE 12/03/21 Evaristo Allan MD [place] Hand Fretted Instrument Maker CARDIOVASCULAR DISEASE 08/19/16 Raul Santana MD CLINICAL CARDIAC ELECTROPHYSIOLOGY 06/16/17 Danny Blackwell MD 5 [place] [address] ORTHOPAEDIC SURGERY 05/01/19 Gayle Arce APRN, HOME COORDINATOR-C 619 [facility] 47 [place] [phone] NURSE PRACTITIONER 03/03/[address] [facility]5 [facility] [place] [address] Consulting Physician PODIATRY/SURGERY 06/27/23 06/26/24 documented as of this encounter
--- OUTSIDE RECORDS SUMMARY | 2024-04-23 04:22 | XMS_ITS | Encounter Summary ---
Author Organization [facility] Address [address] [place] [address]. 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 Not [...] st Contact Info) Description 04/25/2024 11:00 AM SALES SERVICE REP Appointment [facility] [address] [place] [address] [place] [address] Ti Bonilla MD [address] [place] [phone] 05/23/2024 3:30 PM SALES SERVICE REP [facility] [address] [facility] [address] Jyoti Escobar MD [address] [place] [phone] documented as of this encounter Visit Diagnoses Not on filedocumented in this encounter Care Teams Transit Specialist Relationship Specialty Start Date End Date Ti Bonilla MD [address] [place] [phone] PCP - General FAMILY PRACTICE 12/03/21 Evaristo Allan MD [place] Printed Circuit Layout Taper CARDIOVASCULAR DISEASE 08/19/16 Raul Santana MD CLINICAL CARDIAC ELECTROPHYSIOLOGY 06/16/17 Danny Blackwell MD [address]25 [place] [address] ORTHOPAEDIC SURGERY 05/01/19 Gayle Arce, CHAIN MENDER, SOCIAL SERVICES SPECIALIST-C [address] [phone] NURSE PRACTITIONER 03/03/20 documented as of this encounter
--- OUTSIDE RECORDS SUMMARY | 2024-04-23 04:22 | XMS_ITS | Encounter Summary ---
Author Organization [facility] Address [address] [place] [address]. 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 Answer Entry Date Author Status No 11/17/2021 3:30 PM Angela Mora RN Active documented in this encounter Plan of Treatment Upcoming Encounters Date Type Department Care Team (Late st Contact Info) Description 04/25/2024 11:00 AM SLOT SHIFT SUPERVISOR Appointment [facility] [address] [place] [address] [place] [address] Ti Bonilla MD [address] [place] [phone] 05/23/2024 3:30 PM SLOT SHIFT SUPERVISOR Office Visit [facility] [address] [facility] [place] [phone] Jyoti Escobar MD [address] [place] [place] [address] documented as of this encounter Visit Diagnoses Not on filedocumented in this encounter Care Teams Marine Tower Operator Relationship Specialty Start Date End Date Ti Bonilla MD [address] [place] [phone] PCP - General FAMILY PRACTICE 12/03/21 Evaristo Allan MD [place] Supervisor Glycerin CARDIOVASCULAR DISEASE 08/19/16 Raul Santana MD CLINICAL CARDIAC ELECTROPHYSIOLOGY 06/16/17 Danny Blackwell MD [address] [place] [address] ORTHOPAEDIC SURGERY 05/01/19 Gayle Arce, ETHNOGRAPHER, PODIATRIC MEDICINE PROFESSOR-C 619 [facility] [address] [place] [address] NURSE PRACTITIONER 03/03/20 Mendel Shah DPM 1215 [place] [address] Consulting Physician PODIATRY/SURGERY 06/27/23 06/26/24 documented as of this encounter
--- OUTSIDE RECORDS SUMMARY | 2024-04-23 04:22 | XMS_ITS | Encounter Summary ---
Author Organization [facility] Address [address] [place] [address]. [place], [place] [address] [place] [address] Care Team Providers Care Air Filler Name Role Phone Evaristo Allan MD Unavailable Unavailabl Raul Duran MD Unavailable Unavailabl Danny Lopes MD Unavailable [phone] Gayle Arce APRN, SUPERVISOR SUNGLASSES-C Unavailable Ti Bonilla MD Primary Care Provider Encounter Details Date Type Department Care Team (Late st Contact Info) Description 12/07/2022 10:52 AM CDT - 12/07/2022 11:59 PM CDT Hospital Encounter [facility] [address] [place] [address] Olivia Pearson, WATER SANDER [address] [place] [phone] Discharge Disposition: Home or Self Care (Routine [...] 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 [address] [place] [address] Ti Bonilla MD [address] [place] [phone] 05/23/2024 3:30 PM MONEY COUNTER Office Visit [facility] [address] [place] [phone] Jyoti Escobar MD [address] [place] [address] documented as of this encounter Visit Diagnoses Diagnosis 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, with fat layer exposed (CMS/HCC HHS/HCC)- Primary documented in this encounter Administered Medications Inactive Administered Medications - up to 3 most recent administrations Medication Order MAR Action Action Date Dose Rate Site lidocaine 2 % URO-JET jelly Topical, Once, 1 dose, On Tue12/07/22 at 1215Indications: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, with fat layer exposed (CMS/HCC HHS/HCC) Given 12/07/2022 11:00 AM CDT documented in this encounter Care Teams Air Filler Relationship Specialty Start Date End Date Ti Bonilla MD [address] [place] [phone] PCP - General FAMILY PRACTICE 12/03/21 Evaristo Allan MD [place] Deportation Officer CARDIOVASCULAR DISEASE 08/19/16 Raul Santana MD CLINICAL CARDIAC ELECTROPHYSIOLOGY 06/16/17 Danny Blackwell MD 5 [place] [address] ORTHOPAEDIC SURGERY 05/01/19 Gayle Arce APRN, SUPERVISOR SUNGLASSES-C [address] [place] [address] 4P57 [place] [address] NURSE PRACTITIONER 03/03/20 documented as of this encounter
--- OUTSIDE RECORDS SUMMARY | 2024-04-23 04:22 | XMS_ITS | Encounter Summary ---
Author Organization [facility] Address [address] [place] [address]. [place], [place] [address] [place] [address] Care Team Providers Care Tso Name Role Phone Evaristo Allan MD Unavailable Unavailabl Raul Duran MD Unavailable Unavailabl Danny Lopes MD Unavailable [phone] Gayle Arce APRN WORKER'S COMPENSATION CLAIMS EXAMINER-C Unavailable Ti Zamora MD Primary Care Provider Mendel Shah DPSallie Unavailable [phone] Reason for Visit * Reason Comments Atrial Fibrillation Atrial Flutter Breathing Problem CHF Follow Up Irregular Heart Beat Hypertension Encounter Details Date Type Department Care Team (Late st Contact Info) Description 06/30/2023 9:50 AM CDT Office Visit [facility] [address] [place] [address] Alfredo Gonsales, PA-C [address] [place] [address] Atrial Fibrillation; Atrial Flutter; Breathing Problem; CHF; Follow Up; Irregular Heart Beat; Hypertension Social History Tobacco Use Types Packs/Day Years [...] 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 We will give you a call to plan for catheter ablation of your atypical atrial flutter. Please give us call if you have any other questions. documented in this encounter Progress Notes * Alfredo Gonsales PA-C - 06/30/2023 9:50 AM CDT Images from the original note were not included. Cardiac Electrophysiology Clinic Note PATIENT NAME: Evaristo Zelaya : 1960 REFERRING PROVIDER: No ref. provider found PCP: TI ZAMORA MD Reason for Visit Atrial flutter History of Present Illness Mr. Zelaya is a very pleasant 63-year-old male with past medical history of atrial fibrillation withpulmonary vein isolation in [address] Santana, CAD with history of PCI. He had atypical atrial flutter and recurrent atrial fibrillation in 2021 and underwent catheter ablation of atrial fibrillation and left atrial flutter 11/17/[address] Yin. Our last visit with him was 01/2022. He was doing well. Pradaxa was continued. We were asked to see him by cardiology service today. He presents clinic today for acute care visit. He has been having more shortness of breath. He was in [place] in February 2023 and admitted to hospital in [place], [place]. He was diuresed and they senthim home. Since being back in [facility], he has progressively gotten more short of breath. No chest pain, dizziness, lightheadedness, presyncope or syncope. His lower extremity edema well-controlled on diuretics but he is getting a bit more edema along with his shortness of breath. ECG Atypical atrial flutter with variable, 2-1 conduction rate 92 bpm. Diagnosis Recurrent persistent left atrial flutter. S/P Catheter ablation on 11/17/2021. Paroxysmal atrial fibrillation with history of catheter ablation 05/19/[address] Santana and redo ablation on 11/17/2021. No evidence of recurrence since 2021. Chronic anticoagulation with Pradaxa for stroke prevention. Hypertension. Diabetes. No known history of coronary artery disease, stroke, cardiomyopathy. Normal stress test and LVEF of55-60% in 2020. Recommendations Medication list reviewed with patient. No medication changes made in clinic today. Continue Eliquis 5 mg p.o. twice daily for stroke risk reduction. Would recommend echocardiogram at some point to reassess LVEF. Will defer to cardiology service forthis. Mail 14-day MCT to ensure persistent atypical atrial flutter. Recommend catheter ablation of atypical atrial flutter as he is symptomatic. We do not need to see him back in clinic prior to his procedure. Rationale for procedure, risk and benefit discussed with the patient and his . Questions answered. They wish to proceed. Management of hyperlipidemia and hypertension as per Dr. Allan/ALEXANDRE Arce. I personally spent a total of 60 minutes on the day of the encounter. This includes ykgq-ks-jfpf and idb-lbym-jk-face time I provided on the day of the encounter & excludes time spent performing separately reportable services. Medications Current Outpatient Medications: amitriptyline 100 MG tablet, [...] , Rfl: furosemide (LASIX) 40 MG tablet, Take 1 tablet (40 mg total) by mouth 2 (two) times daily., Disp: 60 tablet, Rfl: 0 gabapentin (NEURONTIN) 400 MG capsule, Take 1 capsule (400 mg total) by mouth 3 (three) times daily., Disp: , Rfl: lisinopril (PRINIVIL) 10 MG tablet, Take 1 tablet (10 mg total) by mouth daily., Disp: , Rfl: lisinopril (PRINIVIL) 5 MG tablet, Take 1 tablet (5 mg total) by mouth daily., Disp: , Rfl: metFORMIN 850 MG tablet, Take 1 tablet (850 mg total) by mouth 3 (three) times daily., Disp: , Rfl: metoprolol succinate ER (TOPROL-XL) 100 MG 24 hr tablet, Take 1 tablet (100 mg total) by mouth 2 (two) times a day., Disp: 60 tablet, Rfl: 1 nitroglycerin 0.4 MG SL tablet, Place 1 tablet (0.4 mg total) under the tongue every 5 (five) minutes as needed for Chest Pain., Disp: 25 tablet, Rfl: 1 NOVOLOG FLEXPEN 100 UNIT/ML injection (PEN), Inject 50 Units as directed 3 (three) times daily before meals., Disp: , Rfl: potassium chloride CR (KLOR-CON M) 20 MEQ tablet, Take 1 tablet (20 mEq total) by mouth daily., Disp: 30 tablet, Rfl: 0 tamsulosin 0.4 MG Cap, Take 1 capsule (0.4 mg total) by mouth daily., Disp: , Rfl: traMADol 50 MG tablet, Take 1 tablet (50 mg total) by mouth 3 (three) times a day., Disp: , Rfl: TRUEPLUS PEN NEEDLES 31G X 8 MM Mis, , Disp: , Rfl: Allergies Allergies Allergen Reactions Doxycycline Other (see comment) Blisters in the mouth Tetracyclines & Related Other (see comment) Blisters in the mouth Past History Past Medical History: Diagnosis Date Abnormal stress test Arthritis 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 Coronary artery disease Diabetes (CMS/HCC HHS/HCC) 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, limited to breakdown of skin (HHS/HCC) (CMS/HCC) Fatigue GERD (gastroesophageal reflux disease) Headache Hyperlipidemia Hypertension has had elevated B/P readings Kidney stone SARAI on CPAP Paroxysmal atrial fibrillation (CMS/HCC HHS/HCC) PONV (postoperative nausea and vomiting) Past Surgical History: Procedure Laterality Date CARDIAC CATHETERIZATION 01/04/2018 occluded prox RCA w/well developed lzwp-wl-hrlhk collaterals lvef 55-60% CARDIAC CATHETERIZATION 11/13/2018 FRACTURE SURGERY HC TOTAL KNEE REVISION Right 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 HENT: Negative for hearing loss and nosebleeds. Eyes: Negative for blurred vision and double vision. Respiratory: Positive for shortness of breath. Negative for cough and hemoptysis. Cardiovascular: Positive for leg swelling. Negative for chest pain and palpitations. Gastrointestinal: Negative for blood in stool, heartburn, melena and nausea. Genitourinary: Negative for dysuria and hematuria. Musculoskeletal: Negative for falls and myalgias. Skin: Negative for itching and rash. Neurological: Negative for dizziness, focal weakness and loss of consciousness. Endo/Heme/Allergies: Does not bruise/bleed easily. Psychiatric/Behavioral: Negative for depression. The patient is not nervous/anxious. Physical Examination There were no vitals filed for this visit. Physical Exam Constitutional: General: He is not in acute distress. Appearance: Normal appearance. He is well-developed. HENT: Nose: No mucosal edema. Mouth/Throat: Pharynx: No oropharyngeal exudate. Neck: Vascular: No JVD. Cardiovascular: Rate and Rhythm: Normal rate. Rhythm irregular. Chest Wall: PMI is not displaced. Heart sounds: S1 normal and S2 normal. No murmur heard. No gallop. Pulmonary: Effort: Pulmonary effort is normal. No respiratory distress. Breath sounds: Normal breath sounds. Abdominal: General: There is no abdominal bruit. Palpations: There is no mass. Tenderness: There is no abdominal tenderness. Musculoskeletal: General: No deformity. Normal range of motion. Cervical back: Neck supple. Skin: General: Skin is warm and dry. Neurological: Mental Status: He is alert and oriented to person, place, and time. Psychiatric: Behavior: Behavior normal. Thought Content: Thought content normal. Signed ALFREDO GONSALES PA-C 06/30/2023 documented in this encounter Plan of Treatment Upcoming Encounters Date Type Department Care Team (Late st Contact Info) Description 04/25/2024 11:[address] [facility] [address] [facility] [place] [address] Ti Zamora MD [address] [place] [phone] 05/23/2024 3:30 PM YARD SPOTTER Office Visit [facility] [address] [place] [address] [place] [phone] Jyoti Escobar MD [address] [place] [address] documented as of this encounter Visit Diagnoses Diagnosis Atypical atrial flutter (CMS/HCC [facility]/HCC)- Primary Atrial flutter documented in this encounter Care Teams Tso Relationship Specialty Start Date End Date Ti Zamora MD [address] [place] [phone] PCP - General FAMILY PRACTICE 12/03/21 Evaristo Allan MD [place] [employer] Pilot CARDIOVASCULAR DISEASE 08/19/16 Raul Santana MD CLINICAL CARDIAC ELECTROPHYSIOLOGY 06/16/17 Danny Blackwell MD [address] [place] [address] ORTHOPAEDIC SURGERY 05/01/19 Gayle Arce APRN, WORKER'S COMPENSATION CLAIMS EXAMINER-C [address] [facility] [address] [place] [address] NURSE PRACTITIONER 03/03/20 Mendel Shah DPM [address] [place] [address] [place] [address] Consulting Physician PODIATRY/SURGERY 06/27/23 06/26/24 documented as of this encounter
--- OUTSIDE RECORDS SUMMARY | 2024-04-23 04:22 | XMS_ITS | Encounter Summary ---
Author Organization [facility] Address [address] [place] [address]. 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 [...] st Contact Info) Description 04/25/2024 11:00 AM HUMAN SERVICES INSTRUCTOR Appointment [facility] [address] [place] [address] [place] [address] Ti Bonilla MD [address] [place] [phone] 05/23/2024 3:30 PM HUMAN SERVICES INSTRUCTOR [facility] [address] [facility] [place] [address] Jyoti Escobar MD [address] [place] [address] documented as of this encounter Visit Diagnoses Not on filedocumented in this encounter Care Teams It Telecom Technician Relationship Specialty Start Date End Date Ti Bonilla MD [address] [place] [phone] PCP - General FAMILY PRACTICE 12/03/21 Evaristo Allan MD [place] [employer] Fitter CARDIOVASCULAR DISEASE 08/19/16 Raul Santana MD CLINICAL CARDIAC ELECTROPHYSIOLOGY 06/16/17 Danny Blackwell MD [address] [place] [address] ORTHOPAEDIC SURGERY 05/01/19 Gayle Arce, DOCUMENT PREPARATION SPECIALIST, BUSINESS OFFICE REPRESENTATIVE-C [address] [phone] NURSE PRACTITIONER 03/03/20 documented as of this encounter
--- OUTSIDE RECORDS SUMMARY | 2024-04-23 04:22 | XMS_ITS | Encounter Summary ---
Author Organization [facility] Address [address] [place] [address]. [place], [place] [address] [place] [address] Care Team Providers Care Director Software Development Name Role Phone Evaristo Allan MD Unavailable Unavailabl Raul Duran MD Unavailable Unavailabl Danny Lopes MD Unavailable [phone] Gayle Arce APRN, VP SECURITY-C Unavailable [phone] Ti Bonilla MD Primary Care Provider Encounter Details Date Type Department Care Team (Late st Contact Info) Description 01/18/2023 11:00 AM CDT - 01/18/2023 11:59 PM CDT Hospital Encounter [facility] [address] [place] [address] Olivia Pearson, BRIDGE INSPECTOR [address] [place] [phone] Discharge Disposition: Home or Self Care (Routine [...] 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 [address] [place] [address] [place] [address] Ti Bonilla MD [address] [place] [phone] 05/23/2024 3:30 PM TELESALES SUPERVISOR Office Visit [facility] [address] [facility] [place] [address] Jyoti Escobar MD [address] [place] [address] documented as of this encounter Visit Diagnoses Not on filedocumented in this encounter Care Teams Director Software Development Relationship Specialty Start Date End Date Ti Bonilla MD [address] [place], [place] [phone] PCP - General FAMILY PRACTICE 12/03/21 Evaristo Allan MD [place] Quality System Manager CARDIOVASCULAR DISEASE 08/19/16 Raul Santana MD CLINICAL CARDIAC ELECTROPHYSIOLOGY 06/16/17 Danny Blackwell MD [address] [place] [address] ORTHOPAEDIC SURGERY 05/01/19 Gayle Arce, CLERK FUNERAL DETAIL, VP SECURITY-C [address] [facility] [address] [place] [address] NURSE PRACTITIONER 03/03/20 documented as of this encounter
--- OUTSIDE RECORDS SUMMARY | 2024-04-23 04:22 | XMS_ITS | Encounter Summary ---
Author Organization [facility] Address [address] [place] [address]. [place], [place] [address] [place] [address] Care Team Providers Care Machinist/Machine Builder Name Role Phone Evaristo Allan MD Unavailable Unavailabl Raul Duran MD Unavailable Unavailabl Danny Lopes MD Unavailable [phone] Gayle Arce APRN, LAY OUT DRAFTER-C Unavailable Ti Bonilla MD Primary Care Provider Encounter Details Date Type Department Care Team (Late st Contact Info) Description 12/14/2022 11:00 AM CDT - 12/14/2022 11:59 PM CDT Hospital Encounter [facility] [address] [place] [address] Olivia Pearson, AROMATHERAPIST [address] [place] [phone] Discharge Disposition: Home or Self Care (Routine [...] 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 ER * Ambreen Alonso MD - 12/14/2022 11:00 AM CDT Additional documentation from 12/12/22-12/28/22 may be found under the media tab. ER * Destini Martinez RN - 12/14/2022 11:00 AM CDTEncounter addended by: Destini Martinez RN on: 02/11/2023 8:41 AM Actions taken: MAR administration accepted documented in this encounter Plan of Treatment Upcoming Encounters Date Type Department Care Team (Late st Contact Info) Description 04/25/2024 11:00 AM SLIMER Appointment [facility] [address] [place] [address] [place] [address] Ti Bonilla MD [address] [place] [phone] 05/23/2024 3:30 PM SLIMER Office Visit [facility] [place] [phone] Jyoti Escobar MD [address] [place] [address] documented as of this encounter Visit Diagnoses Diagnosis Diabetic ulcer of toe of right foot associated with type 2 diabetes mellitus, with fat layer exposed (CMS/HCC HHS/HCC)- Primary documented in this encounter Administered Medications Inactive Administered Medications - up to 3 most recent administrations Medication Order MAR Action Action Date Dose Rate Site lidocaine 2 % URO-JET jelly Topical, Once, 1 dose, On 02/13/23 at 0000Indications:Diabetic ulcer of toe of right foot associated with type 2 diabetes mellitus, with fat layer exposed (CMS/HCC HHS/HCC) Given During Downtime 12/14/2022 11:00 AM CDT documented in this encounter Care Teams Machinist/Machine Builder Relationship Specialty Start Date End Date Ti Bonilla MD [address] [place] [phone] PCP - General FAMILY PRACTICE 12/03/21 Evaristo Allan MD [place] Pulley Mortiser Operator CARDIOVASCULAR DISEASE 08/19/16 Raul Santana MD CLINICAL CARDIAC ELECTROPHYSIOLOGY 06/16/17 Danny Blackwell MD [address] [place] [address] ORTHOPAEDIC SURGERY 05/01/19 Gayle Arce, BARBARA, LAY OUT DRAFTER-C [address] [facility] [address] [place] [phone] NURSE PRACTITIONER 03/03/20 documented as of this encounter
--- OUTSIDE RECORDS SUMMARY | 2024-04-23 04:22 | XMS_ITS | Encounter Summary ---
Author Organization [facility] Address [address] [place] [address]. 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 Not on [...] st Contact Info) Description 04/25/2024 11:00 AM HEALTH RECORD TECHNICIAN Appointment [facility] [address] [place] [address] [place] [address] Ti Bonilla MD [address] [place] [phone] 05/23/2024 3:30 PM HEALTH RECORD TECHNICIAN [facility] [address] [place] [address] Jyoti Escobar MD [address] [place] [address] documented as of this encounter Visit Diagnoses Not on filedocumented in this encounter Care Teams Cv/Cvn Cv Tsc System Operator Relationship Specialty Start Date End Date Ti Bonilla MD [address] [place] [phone] PCP - General FAMILY PRACTICE 12/03/21 Evaristo Allan MD [place] Java Consultant CARDIOVASCULAR DISEASE 08/19/16 Raul Santana MD CLINICAL CARDIAC ELECTROPHYSIOLOGY 06/16/17 Danny Blackwell MD [address] [place] [address] ORTHOPAEDIC SURGERY 05/01/19 Gayle Arce, BACK TENDER CLOTH PRINTING, TELEGRAPH AND TELETYPE OPERATOR-C [address] [phone] NURSE PRACTITIONER 03/03/20 documented as of this encounter
--- OUTSIDE RECORDS SUMMARY | 2024-04-23 04:22 | XMS_ITS | Encounter Summary ---
Author Organization [facility] Address [address] [place] [address]. [place], [place] [phone] [place] [address] Care Team Providers Care Insurance Agency Manager Name Role Phone Evaristo Allan MD Unavailable Unavailabl Raul Duran MD Unavailable Unavailabl Danny Lopes MD Unavailable [phone] Gayle Arce APRN, HAZARDOUS SUBSTANCES ENGINEER-C Unavailable [phone] Ti Bonilla MD Primary Care Provider Encounter Details Date Type Department Care Team (Late st Contact Info) Description 11/24/2022 11:11 AM CDT - 11/24/2022 11:59 PM CDT Hospital Encounter [facility] [address] [place] [address] Olivia Pearson, NECKTIE TURNER [address] [place] [phone] Discharge Disposition: Home or Self Care (Routine [...] 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 [address] [place] [address] Ti Bonilla MD [address] [place] [phone] 05/23/2024 3:30 PM STITCHER TAPE CONTROLLED MACHINE Office Visit [facility] [address] [place] [phone] Jyoti Escobar MD [address] [place] [address] documented as of this encounter Visit Diagnoses Diagnosis 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, with fat layer exposed (CMS/HCC HHS/HCC)- Primary documented in this encounter Administered Medications Inactive Administered Medications - up to 3 most recent administrations Medication Order MAR Action Action Date Dose Rate Site lidocaine 2 % URO-JET jelly Topical, Once, 1 dose, On Tue11/24/22 at 1200Indications: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, with fat layer exposed (CMS/HCC HHS/HCC) Given 11/24/2022 11:20 AM CDT documented in this encounter Care Teams Insurance Agency Manager Relationship Specialty Start Date End Date Ti Bonilla MD [address] [place] [phone] PCP - General FAMILY PRACTICE 12/03/21 Evaristo Allan MD [place] Show Host CARDIOVASCULAR DISEASE 08/19/16 Raul Santana MD CLINICAL CARDIAC ELECTROPHYSIOLOGY 06/16/17 Danny Blackwell MD [address] [place] [address] ORTHOPAEDIC SURGERY 05/01/19 Gayle Arce APRN, HAZARDOUS SUBSTANCES ENGINEER-C [address] [place] [address] [address] [place] [address] NURSE PRACTITIONER 03/03/20 documented as of this encounter
--- OUTSIDE RECORDS SUMMARY | 2024-04-23 04:22 | XMS_ITS | Encounter Summary ---
Author Organization [facility] Address [address] [place] [address]. [place], [place] [address] [place] [address] Care Team Providers Care Fabric Cutter Name Role Phone Evaristo Allan MD Unavailable Unavailabl Raul Duran MD Unavailable Unavailabl Danny Lopes MD Unavailable [phone] Gayle Arce APRN, SENIOR MAINTENANCE MACHINIST-C Unavailable Ti Bonilla MD Primary Care Provider Encounter Details Date Type Department Care Team (Late st Contact Info) Description 01/11/2023 10:45 AM CDT - 01/11/2023 11:59 PM CDT Hospital Encounter [facility] [address] [place] [address] Olivia Pearson, WINDOW DECORATOR [address] [place] [phone] Discharge Disposition: Home or Self Care (Routine [...] 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 [address] [place] [address] Ti Bonilla MD [address] [place] [phone] 05/23/2024 3:30 PM HOCKEY SCOUT Office Visit [facility] [address] [place] [phone] Jyoti Escobar MD [address] [place] [address] documented as of this encounter Visit Diagnoses Diagnosis 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, with fat layer exposed (CMS/HCC HHS/HCC)- Primary documented in this encounter Administered Medications Inactive Administered Medications - up to 3 most recent administrations Medication Order MAR Action Action Date Dose Rate Site lidocaine 2 % URO-JET jelly Topical, Once, 1 dose, On Tue01/11/23 at 1145Indications: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, with fat layer exposed (CMS/HCC HHS/HCC) Given 01/11/2023 11:47 AM CDT documented in this encounter Care Teams Fabric Cutter Relationship Specialty Start Date End Date Ti Bonilla MD [address] [place] [phone] PCP - General FAMILY PRACTICE 12/03/21 Evaristo Allan MD [place] Quote Clerk CARDIOVASCULAR DISEASE 08/19/16 Raul Santana MD CLINICAL CARDIAC ELECTROPHYSIOLOGY 06/16/17 Danny Blackwell MD [address] [place] [address] ORTHOPAEDIC SURGERY 05/01/19 Gayle Arce APRN, SENIOR MAINTENANCE MACHINIST-C [address] [place] [address] [address] [place] [address] NURSE PRACTITIONER 03/03/20 documented as of this encounter
--- OUTSIDE RECORDS SUMMARY | 2024-04-23 04:22 | XMS_ITS | Encounter Summary ---
Author Organization [facility] Address [address] [place] [address]. [place], [place] [address] [place] [address] Care Team Providers Care Loin Trimmer Name Role Phone Elza Allan MD Unavailable Unavailabl Raul Duran MD Unavailable Unavailabl Danny Lopes MD Unavailable [phone] Gayle Arce APRN, UPHOLSTERER HELPER-C Unavailable [phone] Ti Bonilla MD Primary Care Provider Mendel Shah DPM Unavailable [phone] Encounter Details Date Type Department Care Team (Late st Contact Info) Description 06/29/2023 Orders Only [facility] [address] [place] [address] Elza Allan MD Social History Tobacco Use Types Packs/Day Years [...] 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 Not [...] st Contact Info) Description 04/25/2024 11:00 AM INSTRUCTOR CREELER Appointment [facility] [address] [place] [address] Ti Bonilla MD [address] [place] [phone] 05/23/2024 3:30 PM INSTRUCTOR CREELER Office Visit [facility] [address] [place] [address] Jyoti Escobar MD [address] [place] [address] documented as of this encounter Results * ELECTROCARDIOGRAM (06/30/2023 9:17 AM CDT) 06/30/2023 9:17 AM CDT [facility]ative [facility] - 07/01/2023 8:35 AM CDT ? [facility] ?[address] [place], [place] ??[address] ? Test Date: ?2023-06-30 Pat Name: ? ELZA MCKEON ? Department: ?? 105 ? Room: ? Gender: ? Male ? Apparel Designer: ?? : ?1960 ? Requested By: ELZA ALLAN Order Number: [id number] ?Reading MD: ?? Elza Allan ? Measurements Intervals ?[place] ? Rate: ? 92 ? P: ? IL: ? 0 ?QRS: ?118 QRSD: ? 125 ?T: ?111 QT: ? 394 ? QTc: ?488 ? Interpretive Statements PROBABLE ATRIAL FLUTTER LATERAL MYOCARDIAL INFARCTION, PROBABLY OLD WITH POSSIBLE POSTERIOR EXTENSION Procedure Note Elza Allan MD - 07/01/2023 [facility] [place] [address] [place] [address] Test Date: 2023-06-30 Pat Name: [facility] Department: 105 Room: Gender: Male Apparel Designer: : 1960 Requested By: ELZA ALLAN Order Number: [id number] Jose Antonio MD: Elza Allan Measurements Intervals [place] Rate: 92 P: IL: 0 QRS: 118 QRSD: 125 T: 111 QT: 394 QTc: 488 Interpretive Statements PROBABLE ATRIAL FLUTTER LATERAL MYOCARDIAL INFARCTION, PROBABLY OLD WITH POSSIBLE POSTERIOREXTENSION us Elza Allan MD PROCEDURES-ORDERABLE NO LENO RGE Final Result [facility] documented in this encounter Visit Diagnoses Diagnosis Coronary artery disease involving belkofski coronary artery of belkofski heart, unspecified whether angina present- Primary Anticoagulated Encounter for long-term (current) use of anticoagulants Paroxysmal atrial fibrillation ([facility]/HCC HHS/HCC)- Primary Atrial fibrillation Localized edema Edema Coronary artery disease involving belkofski coronary artery of belkofski heart, unspecified whether angina present Essential (primary) hypertension Unspecified essential hypertension Hyperlipidemia, mixed Mixed hyperlipidemia intermediate use of drug Encounter for long-term (current) use of other medications documented in this encounter Care Teams Loin Trimmer Relationship Specialty Start Date End Date Ti Bonilla MD [address] [place] [phone] PCP - General FAMILY PRACTICE 12/03/21 Elza Allan MD [place] Dairy Management Specialist CARDIOVASCULAR DISEASE 08/19/16 Raul Santana MD CLINICAL CARDIAC ELECTROPHYSIOLOGY 06/16/17 Danny Blackwell MD [address] [place], [place] [phone] ORTHOPAEDIC SURGERY 05/01/19 Gayle Arce APRN, UPHOLSTERER HELPER-C [address] [facility] [address] [place] [address] NURSE PRACTITIONER 03/03/20 Mendel Shah DPSallie [address] [facility] [place] [address] Consulting Physician PODIATRY/SURGERY 06/27/23 06/26/24 documented as of this encounter
--- OUTSIDE RECORDS SUMMARY | 2024-04-23 04:22 | XMS_ITS | Encounter Summary ---
Author Organization [facility] Address [address] [place] [address]. 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 file [...] Author Status No 11/17/2021 3:30 PM Angela oMra RN Active * Do you have difficulty [...] Contact Info) Description 04/25/2024 11:00 AM MEDICAL DERMATOLOGIST Appointment [facility] [address] [place] [address] [place] [address] Ti Bonilla MD [address] [place] [phone] 05/23/2024 3:30 PM MEDICAL DERMATOLOGIST [facility] [address] [facility] [place] [address] Jyoti Escobar MD [address] [place] [phone] documented as of this encounter Visit Diagnoses Not on filedocumented in this encounter Care Teams Raw Stock Dyeing Machine Tender Relationship Specialty Start Date End Date Ti Bonilla MD [address] [place] [phone] PCP - General FAMILY PRACTICE 12/03/21 Evaristo Allan MD [place] Processing Technician CARDIOVASCULAR DISEASE 08/19/16 Raul Santana MD CLINICAL CARDIAC ELECTROPHYSIOLOGY 06/16/17 Danny Blackwell MD [address] [place] [address] ORTHOPAEDIC SURGERY 05/01/19 Gayle Arce, SECURITY ESCORT, OCEAN EXPORT ACCOUNT MANAGER-C [address] [phone] NURSE PRACTITIONER 03/03/20 documented as of this encounter
--- OUTSIDE RECORDS SUMMARY | 2024-04-23 04:22 | XMS_ITS | Encounter Summary ---
Author Organization [facility] Address [address] [place] [address]. 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 [...] st Contact Info) Description 04/25/2024 11:00 AM IMPORT AND EXPORT CLERK Appointment [facility] [address] [place] [address] [place] [address] Ti Bonilla MD [address] [place] [phone] 05/23/2024 3:30 PM IMPORT AND EXPORT CLERK [facility] [address] [facility] [place] [address] Jyoti Escobar MD [address] [place] [phone] documented as of this encounter Visit Diagnoses Not on filedocumented in this encounter Care Teams Honey Processor Relationship Specialty Start Date End Date Ti Bonilla MD [address] [place] [phone] PCP - General FAMILY PRACTICE 12/03/21 Evaristo Allan MD [place] Traffic Engineer CARDIOVASCULAR DISEASE 08/19/16 Raul Santana MD CLINICAL CARDIAC ELECTROPHYSIOLOGY 06/16/17 Danny Blackwell MD [address] [place] [address] ORTHOPAEDIC SURGERY 05/01/19 Gayle Arce, METAL SHEET ROLLER OPERATOR, POLISHER AND SANDER-C [address] [phone] NURSE PRACTITIONER 03/03/20 documented as of this encounter
--- OUTSIDE RECORDS SUMMARY | 2024-04-23 04:22 | XMS_ITS | Encounter Summary ---
Author Organization [facility] Address [address] [place] [address]. [place], [place] [address] [place] [address] Care Team Providers Care Certified Prosthetist Vice President Name Role Phone Evaristo Allan MD Unavailable Unavailabl Raul Duran MD Unavailable Unavailabl Danny Lopes MD Unavailable [phone] Gayle Arce APRN, ACTIVITIES THERAPIST-C Unavailable [phone] Ti Bonilla MD Primary Care Provider Encounter Details Date Type Department Care Team (Late st Contact Info) Description 11/10/2022 10:47 AM CDT - 11/10/2022 11:59 PM CDT Hospital Encounter [facility] [address] [place] [address] Olivia Pearson, FINAL ASSEMBLER [address] [place] [phone] Discharge Disposition: Home or Self Care (Routine [...] 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 [address] [place] [address] Ti Bonilla MD [address] [place] [phone] 05/23/2024 3:30 PM WATCH AND CLOCK MAKER AND REPAIRER Office Visit [facility] [address] [place] [phone] Jyoti Escobar MD [address] [place] [address] documented as of this encounter Visit Diagnoses Diagnosis 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, with fat layer exposed (CMS/HCC HHS/HCC)- Primary documented in this encounter Administered Medications Inactive Administered Medications - up to 3 most recent administrations Medication Order MAR Action Action Date Dose Rate Site lidocaine 2 % URO-JET jelly Topical, Once, 1 dose, On Tue11/10/22 at 1245Indications: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, with fat layer exposed (CMS/HCC HHS/HCC) Given 11/10/2022 11:45 AM CDT documented in this encounter Care Teams Certified Prosthetist Vice President Relationship Specialty Start Date End Date Ti Bonilla MD [address] [place] [phone] PCP - General FAMILY PRACTICE 12/03/21 Evaristo Allan MD [place] Food Safety Officer CARDIOVASCULAR DISEASE 08/19/16 Raul Santana MD CLINICAL CARDIAC ELECTROPHYSIOLOGY 06/16/17 Danny Blackwell MD 5 [place] [address] ORTHOPAEDIC SURGERY 05/01/19 Gayle Arce APRN, ACTIVITIES THERAPIST-C [address] [place] [address] 4P[address] [place] [address] NURSE PRACTITIONER 03/03/20 documented as of this encounter
--- OUTSIDE RECORDS SUMMARY | 2024-04-23 04:22 | XMS_ITS | Encounter Summary ---
Author Organization [facility] Address [address] [place] [address]. [place], [place] [address] [place] [address] Care Team Providers Care Well Drill Operator Cable Tool Name Role Phone Evaristo Allan MD Unavailable Unavailabl Raul Duran MD Unavailable Unavailabl Danny Lopes MD Unavailable [phone] Gayle Arce APRN, VOLTAGE TESTER-C Unavailable Ti Bonilla MD Primary Care Provider Encounter Details Date Type Department Care Team (Late st Contact Info) Description 12/22/2022 11:00 AM CDT - 12/22/2022 11:59 PM CDT Hospital Encounter [facility] [address] [place] [address] Olivia Pearson, TOY PACKER [address] [place] [phone] Discharge Disposition: Home or Self Care (Routine [...] 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 GER AND SETTER * Ambreen Alonso MD - 12/22/2022 11:00 AM CDT Additional documentation from 12/12/22-12/28/22 may be found under the media tab. GER AND SETTER * Ashley Schaeffer RN - 12/22/2022 11:00 AM CDTEncounter addended by: Ashley Schaeffer RN on: 02/11/2023 9:51 AM Actions taken: MAR administration accepted documented in this encounter Plan of Treatment Upcoming Encounters Date Type Department Care Team (Late st Contact Info) Description 04/25/2024 11:00 AM WRINGER AND SETTER Appointment [facility] [address] [place] [address] [place] [address] Ti Bonilla MD [address] [place] [phone] 05/23/2024 3:30 PM WRINGER AND SETTER Office Visit [facility] [place] [phone] Jyoti Escobar MD [address] [place] [address] documented as of this encounter Visit Diagnoses Not on filedocumented in this encounter Administered Medications Inactive Administered Medications - up to 3 most recent administrations Medication Order MAR Action Action Date Dose Rate Site lidocaine 2 % URO-JET jelly Topical, Once, 1 dose, On Tue12/22/22 at 0000 Given During Downtime 12/23/2022 11:50 AM CDT documented in this encounter Care Teams Well Drill Operator Cable Tool Relationship Specialty Start Date End Date Ti Bonilla MD [address] [place] [phone] PCP - General FAMILY PRACTICE 12/03/21 Evaristo Allan MD [place] CARDIOVASCULAR DISEASE 08/19/16 Raul Santana MD CLINICAL CARDIAC ELECTROPHYSIOLOGY 06/16/17 Danny Blackwell MD [address] [place] [address] ORTHOPAEDIC SURGERY 05/01/19 Gayle Arce APRN, VOLTAGE TESTER-C 619 [facility] [address] [place] [phone] NURSE PRACTITIONER 03/03/20 documented as of this encounter
--- OUTSIDE RECORDS SUMMARY | 2024-04-23 04:22 | XMS_ITS | Encounter Summary ---
Author Organization [facility] Address [address] [place] [address]. [place], [place] [address] [place] [address] Care Team Providers Care Rn Unit Manager Name Role Phone Evaristo Allan MD Unavailable Unavailabl Raul Duran MD Unavailable Unavailabl Danny Lopes MD Unavailable [phone] Gayle Arce APRN, SPEEDER MACHINE OPERATOR-C Unavailable Ti Bonilla MD Primary Care Provider Encounter Details Date Type Department Care Team (Late st Contact Info) Description 11/30/2022 11:00 AM CDT - 11/30/2022 11:59 PM CDT Hospital Encounter [facility] [address] [place] [address] Olivia Pearson, SOFTWARE SUPPORT SPECIALIST [address] [place] [phone] Discharge Disposition: Home or Self Care (Routine [...] 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 [address] [place] [address] Ti Bonilla MD [address] [place] [phone] 05/23/2024 3:30 PM COIN DEALER Office Visit [facility] [address] [place] [phone] Jyoti Escobar MD [address] [place] [address] documented as of this encounter Visit Diagnoses Diagnosis 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, with fat layer exposed (CMS/HCC HHS/HCC)- Primary documented in this encounter Administered Medications Inactive Administered Medications - up to 3 most recent administrations Medication Order MAR Action Action Date Dose Rate Site lidocaine 2 % URO-JET jelly Topical, Once, 1 dose, On Tue11/30/22 at 1400Indications: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, with fat layer exposed (CMS/HCC HHS/HCC) Given 11/30/2022 11:00 AM CDT documented in this encounter Care Teams Rn Unit Manager Relationship Specialty Start Date End Date Ti Bonilla MD [address] [place] [phone] PCP - General FAMILY PRACTICE 12/03/21 Evaristo Allan MD [place] Adaptive Physical Educator CARDIOVASCULAR DISEASE 08/19/16 Raul Santana MD CLINICAL CARDIAC ELECTROPHYSIOLOGY 06/16/17 Danny Blackwell MD [address] [place] [address] ORTHOPAEDIC SURGERY 05/01/19 Gayle Arce APRN, SPEEDER MACHINE OPERATOR-C [address] [place] [address] 4[address] [place] [address] NURSE PRACTITIONER 03/03/20 documented as of this encounter
--- OUTSIDE RECORDS SUMMARY | 2024-04-23 04:22 | XMS_ITS | Encounter Summary ---
Author Organization [facility] Address [address] [place] [address]. [place], [place] [address] [place] [address] Care Team Providers Care Racing Manager Name Role Phone Evaristo Allan MD Unavailable Unavailabl Raul Duran MD Unavailable Unavailabl Danny Lopes MD Unavailable [phone] Gayle Arce APRN, BEEF PUSHER-C Unavailable Ti Bonilla MD Primary Care Provider Encounter Details Date Type Department Care Team (Late st Contact Info) Description 01/07/2023 1:16 PM CDT - 01/07/2023 11:59 PM CDT Hospital Encounter [facility] [address] [place] [address] Olivia Pearson, DRAPERY COUNSELOR [address] [place] [phone] Discharge Disposition: Home or Self Care (Routine [...] 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 [address] [place] [address] Ti Bonilla MD [address] [place] [phone] 05/23/2024 3:30 PM BIRTHING NURSE Office Visit [facility] [address] [place] [phone] Jyoti Escobar MD [address] [place] [address] documented as of this encounter Visit Diagnoses Diagnosis 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, with fat layer exposed (CMS/HCC HHS/HCC)- Primary documented in this encounter Administered Medications Inactive Administered Medications - up to 3 most recent administrations Medication Order MAR Action Action Date Dose Rate Site lidocaine 2 % URO-JET jelly Topical, Once, 1 dose, On Tue01/07/23 at 1430Indications: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, with fat layer exposed (CMS/HCC HHS/HCC) Given 01/07/2023 1:45 PM CDT documented in this encounter Care Teams Racing Manager Relationship Specialty Start Date End Date Ti Bonilla MD [address] [place] [phone] PCP - General FAMILY PRACTICE 12/03/21 Evaristo Allan MD [place] Newspaper Manager CARDIOVASCULAR DISEASE 08/19/16 Raul Santana MD CLINICAL CARDIAC ELECTROPHYSIOLOGY 06/16/17 Dnany Blackwell MD [address] [place] [address] ORTHOPAEDIC SURGERY 05/01/19 Gayle Arce APRN, BEEF PUSHER-C [address] [place] [address] [address] [place] [address] NURSE PRACTITIONER 03/03/20 documented as of this encounter
--- OUTSIDE RECORDS SUMMARY | 2024-04-23 04:22 | XMS_ITS | Encounter Summary ---
Author Organization [facility] Address [address] [place] [address]. 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 [...] st Contact Info) Description 04/25/2024 11:00 AM PARACHUTE INSPECTOR Appointment [facility] [address] [place] [address] [place] [address] Ti Bonilla MD [address] [place] [phone] 05/23/2024 3:30 PM PARACHUTE INSPECTOR [facility] [address] [facility] [place] [address] Jyoti Escobar MD [address] [place] [phone] documented as of this encounter Visit Diagnoses Not on filedocumented in this encounter Care Teams Construction Rep Relationship Specialty Start Date End Date Ti Bonilla MD [address] [place] [phone] PCP - General FAMILY PRACTICE 12/03/21 Evaristo Allan MD [place] Transaction Coordinator CARDIOVASCULAR DISEASE 08/19/16 Raul Santana MD CLINICAL CARDIAC ELECTROPHYSIOLOGY 06/16/17 Danny Blackwell MD [address] [place] [address] ORTHOPAEDIC SURGERY 05/01/19 Gayle Arce, HOUSEKEEPER HOME, VETERINARY PRACTITIONER-C [address] [phone] NURSE PRACTITIONER 03/03/20 documented as of this encounter
--- OUTSIDE RECORDS SUMMARY | 2024-04-23 04:22 | XMS_ITS | Encounter Summary ---
Author Organization [facility] Address [address] [place] [address]. [place] [address] [place] [address] Care Team Providers Care Patient Services Assistant Name Role Phone Evaristo Allan MD Unavailable Unavailabl Raul Duran MD Unavailable Unavailabl Danny Lopes MD Unavailable [phone] Gayle Arce APRN, TRADEMARK ATTORNEY-C Unavailable [phone] Ti Bonilla MD Primary Care Provider Mendel Shah DPM Unavailable [phone] Reason for Visit * Reason Onset Date Comments Appointment Request 06/28/2023 Possibly [place] in A-fib Encounter Details Date Type Department Care Team ([facility] [place] st Contact Info) Description 06/28/2023 [facility]phone 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 Scheduled 06/30/2023 at 9:00 with Gayle Arce NP. He agreed. documented in this encounter Plan of Treatment Upcoming Encounters Date Type Department Care Team (Late st Contact Info) Description 04/25/2024 11:00 AM LAMP TESTER AND INSPECTOR Appointment [facility] [address] [address] Ti Bonilla MD [address] [place] [phone] 05/23/2024 3:30 PM LAMP TESTER AND INSPECTOR [facility] [address] [place] [phone] Jyoti Escobar MD [address] [place], [place] [phone] documented as of this encounter Visit Diagnoses Not on filedocumented in this encounter Care Teams Patient Services Assistant Relationship Specialty Start Date End Date Ti Bonilla MD [address] [place] [phone] PCP - General FAMILY PRACTICE 12/03/21 Evaristo Allan MD [place] Lumber Stacker Driver CARDIOVASCULAR DISEASE 08/19/16 Raul Santana MD CLINICAL CARDIAC ELECTROPHYSIOLOGY 06/16/17 Danny Blackwell MD [address] [place] [address] ORTHOPAEDIC SURGERY 05/01/19 Gayle Arce APRN, TRADEMARK ATTORNEY-C [address] [facility] [place] [address] [place] [phone] NURSE PRACTITIONER 03/03/20 Mendel Shah DPM [address] [place], [place] [address] [address] Consulting Physician PODIATRY/SURGERY 06/27/23 06/26/24 documented as of this encounter
--- OUTSIDE RECORDS SUMMARY | 2024-04-23 04:22 | XMS_ITS | Encounter Summary ---
Author Organization [facility] Address [address] [place] [address]. 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 Not on [...] st Contact Info) Description 04/25/2024 11:00 AM ANALYSIS TESTER Appointment [facility] [address] [place] [address] [place] [address] Ti Bonilla MD [address] [place] [phone] 05/23/2024 3:30 PM ANALYSIS TESTER [facility] [address] [facility] [place] [address] Jyoti Escobar MD [address] [place] [phone] documented as of this encounter Visit Diagnoses Not on filedocumented in this encounter Care Teams Solar Installer Relationship Specialty Start Date End Date Ti Bonilla MD [address] [place] [phone] PCP - General FAMILY PRACTICE 12/03/21 Evaristo Allan MD [place] [facility] Nurse Practitioner CARDIOVASCULAR DISEASE 08/19/16 Raul Santana MD CLINICAL CARDIAC ELECTROPHYSIOLOGY 06/16/17 Danny Blackwell MD [address] [place] [address] ORTHOPAEDIC SURGERY 05/01/19 Gayle Arce, CRYSTALLIZER OPERATOR, CASH REGISTER MECHANIC-C [address] [phone] NURSE PRACTITIONER 03/03/20 documented as of this encounter
--- OUTSIDE RECORDS SUMMARY | 2024-04-23 04:22 | XMS_ITS | Encounter Summary ---
Author Organization [facility] Address [address] [place] [address]. [place], [place] [address] [place] [address] Care Team Providers Care Buggy Operator Name Role Phone Elza Allan MD Unavailable Unavailabl Raul Duran MD Unavailable Unavailabl Danny Lopes MD Unavailable [phone] Gayle Arce APRN, CHANNEL CEMENTER INSOLE MACHINE-C Unavailable [phone] Ti Zamora MD Primary Care Provider Mendel Shah DPM Unavailable [phone] Reason for Visit * Reason Comments Follow Up Atrial Fibrillation Shortness Of Breath Encounter Details Date Type Department Care Team ([facility] Contact Info) Description 06/30/2023 9:00 AM CDT Office Visit [facility] [address] [place] [address] Gayle Arce APRN, CHANNEL CEMENTER INSOLE MACHINE-C [address] [facility] [address] [place] [address] Follow Up; Atrial Fibrillation; Shortness Of Breath Social History Tobacco Use Types Packs/Day Years [...] 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 Not on file documented as of this encounter Last Filed Vital Signs Vital Sign Reading Time Taken Comments Blood Pressure 132/80 06/30/2023 9:06 AM CDT Pulse 93 06/30/2023 9:06 AM CDT Temperature - - Respiratory Rate 16 06/30/2023 9:06 AM CDT Oxygen Saturation 95% 06/30/2023 9:06 AM CDT Inhaled Oxygen Concentration - - Weight 137.4 kg (303 lb) 06/30/2023 9:06 AM CDT Height 177.8 cm (5' 10 ) 06/30/2023 9:06 AM CDT Body Mass Index 43.48 06/30/2023 9:06 AM CDT documented in this encounter Functional [...] Assessment Author Status No 11/17/2021 3:30 PM MKIKIT Angela Mancuso RN Active documented as of this encounter Mental Status * Because of a physical, mental, or emotional condition, do you have serious difficulty concentrating, remembering, or making decisions? Answer Entry Date Author Status No 11/17/2021 3:30 PM Angela Mora RN Active documented in this encounter Patient Instructions * Patient Instructions* Gayle Arce APRN, CHANNEL CEMENTER INSOLE MACHINE-C - 06/30/2023 9:00 AM CDT Increase furosemide to 40 mg twice a day. Add potassium 20 meq daily. Labs in one week. Increase metoprolol to 100 mg twice a day. (Froylan may change this) documented in this encounter Progress Notes * Gayle Arce APRN, NP-C - 06/30/2023 9:00 AM CDT FROM: Gayle Arce APRN, NP-C, collaborating physician Elza Allan III, M.D. RE: Elza Mckeon : 1960 Reason for Visit: Follow Up, Atrial Fibrillation, and Shortness Of Breath History of Present Illness: Mr. Mckeon is a pleasant 63-year-old male seen in the cardiology clinic today for a followup visit regarding possible atrial fibrillation. He has a history of coronary artery disease s/p ONSHORE DIVER PCI on 03/24/18, atrial fibrillation s/p ablation in 2016, hypertension, hyperlipidemia, diabetes, and sleep apnea. He recently has noticed a change in his exertional tolerance. He can do minimal activity and then have to sit and rest. On Tuesday, he was at his primary care office and an EKG confirmed atrial fibrillation. He believes that his episodes have been paroxysmal. They do seem to be worse with exertion. When he performs exertional activity he will become lightheaded and stumble. He has been more short of breath. He has occasional chest discomfort. He has occasional orthopnea when first lying down. Hewill usually apply his CPAP. If he is unable to get comfortable, he will then go sleep in a chair. He denies any paroxysmal nocturnal dyspnea. He has lower extremity edema, but reports that it was worse earlier this year. He tells me that he was hospitalized in [place] in February. His edema was increasing, and he decided to seek treatment. During that hospitalization, he apparently underwent a stress test. He was also switched from Pradaxa to Eliquis at that time. His weight is up approximately 23 pounds since his last visit in 2021. He denies any specific palpitations. He has not had any syncopal events. He denies signs and symptoms of CVA or TIA. He seems to be tolerating his present medications well without reported side effects. He denies signs of bleeding. Evaluation during the clinic visit included an EKG which confirmed the presence of what appears to be a possible atrial flutter at a rate of 92 beats per minute. Recommendations/Plan: Mr. Mckeon was last seen in the office in 2021, after which he underwent an atrial flutter ablation.He has had a recurrence of symptoms. I will adjust his medications in the office today. We will also try to make arrangements for him to see electrophysiology. I have recommended the following to Mr. Mckeon: Atrial Fibrillation/Flutter. I will increase his rate control to see if this provides any symptom relief. He is currently taking metoprolol succinate 100 mg daily. I have instructed him to increase this to twice a day. He is anticoagulated with Eliquis. Further recommendations will be deferred to Dr. Yin's office. Edema. I suspect that the arrhythmia recurrence has exacerbated his fluid retention. I will increase his furosemide from 40 mg daily to twice daily. I will also add 20 mEq of potassium daily. I have given him an order for a BMP to be drawn next week. He will continue to follow-up with the wound clinic. CAD. He is having intermittent chest pain, which could be demand ischemia. He tells me he had a stress test this winter. I will try to obtain these results. He will continue his aspirin and statin. Hypertension. His blood pressure is well-controlled in the office today. Hyperlipidemia. He is currently treated with atorvastatin and denies reported side effects. An LDL less than 70 is recommended. We will plan to see Mr. Mckeon in six months. I have encouraged him to contact me in the meantime should he have any questions or problems. Addendum 07/05/23: I received his hospital records from 02/23/2023 in [place]. He presented with lower extremity edema.His echocardiogram revealed an LVEF 40-45%. He underwent a nuclear stress test that did not reveal evidence of ischemia. He had lower extremity dopplers that were negative for DVT. He was switched from warfarin to Eliquis due to subtherapeutic INRs. His swelling improved with diuresis. He was started on lisinopril due to the LV dysfunction. His final diagnosis was acute CHF exacerbation, likely triggered by the atrial fibrillation with rapid ventricular response. I do not have complete hospitalrecords, but the only set of vitals on the discharge summary reported his pulse at 100 bpm. There was no mention of his weight or amount of fluid volume lost. Medications: Current Outpatient Medications: amitriptyline 100 MG [...] 2 (two) times daily., Disp: , Rfl: furosemide (LASIX) 40 MG [...] a day., Disp: 60 tablet, Rfl: 1 NOVOLOG FLEXPEN 100 UNIT/ML [...] (three) times a day., Disp: , Rfl: famotidine 40 MG tablet, Take 40 mg by mouth 2 (two) times daily. , Disp: , Rfl: nitroglycerin 0.4 MG SL tablet, Place 1 tablet (0.4 mg total) under the tongue every 5 (five) minutes as needed for Chest Pain., Disp: 25 tablet, Rfl: 1 TRUEPLUS PEN NEEDLES 31G X 8 MM [facility], , Disp: , Rfl: Review of patient's allergies indicates: Allergen Reactions Doxycycline Other (see comment) Blisters in the mouth Tetracyclines & Related Other (see comment) Blisters in the mouth Past Medical History: [...] CATHETERIZATION 01/04/2018 occluded prox RCA w/well developed taat-ke-ynxye collaterals lvef 55-60% CARDIAC CATHETERIZATION 11/13/2018 FRACTURE SURGERY HC TOTAL KNEE REVISION Right 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 Negative for recent unintentional weight loss and new or significant fatigue. HENT: Negative for new or significant hearing loss. Eyes: Negative for blurred vision and double vision. Respiratory: Positive for shortness of breath. Negative for cough and snoring. Cardiovascular: See HPI. Positive for chest pain, leg swelling and light-headedness. Gastrointestinal: Negative for blood in stool and melena. Genitourinary: Negative for dysuria. Musculoskeletal: Negative for myalgias and new or worsening joint stiffness/pain. Skin: Negative for rash. Neurological: Negative for tingling/numbness and focal weakness. Endo/Heme/Allergies: Negative for new or significant bruising/bleeding and polydipsia. Psychiatric/Behavioral: Negative for depression and new or significant memory loss. Vitals: 06/30/23 0906 BP: 132/80 Patient Position: Sitting BP Location: Right arm Pulse: 93 Weight: (!) 137.4 kg (303 lb) Height: 1.778 m (5' 10 ) Body mass index is 43.48 kg/m??. Cardiac Exam Rate/Rhythm: Normal rate. A regularly irregular rhythm present. PMI: Pulses: Dorsalis pedis pulses are 1+ on the right side and 1+ on the left side. Posterior tibial pulses are 1+ on the right side and 1+ on the left side. Heart Sounds: Normal heart sounds. Normal S1 sounds. Normal S2 sounds. No gallop present. No S3. NoS4. Murmurs: No murmur present Edema left: 1+. Edema Right: 1+. Physical Exam Constitutional: No distress. Healthy Appearance. HENT: Oropharynx clear. Eyes: Pupils equal, round, and reactive to light. Conjunctivae normal. Neck: Neck supple. No JVD. Abdomen: Abdomen soft. Bowel sounds normal. No distension. No tenderness. No abdominal bruit present. Pulmonary: Effort normal. Breath sounds normal. Slight left lower lobe crackles. Skin: Dry. Warm. No rash. No jaundice. No cyanosis. No clubbing. No xanthoma. Musculoskeletal: No kyphosis. Normal ROM. Neurological: Alert. Oriented x 3. Appropriate mood and affect. Comments: Mild to moderate BLE edema extending up to knees. He reports a wound on his left great toe. I did not remove his socks today. He is monitored by the wound clinic. Diagnoses/Impression: 1. Paroxysmal atrial fibrillation ([facility]/HCC) 2. Localized edema 3. Coronary artery disease involving [place] coronary artery of [place] heart, unspecified whether angina present 4. Essential (primary) hypertension 5. Hyperlipidemia, mixed 6. director long term care use of drug BASIC METABOLIC PANEL Referring Provider: No ref. provider found PCP: TI ZAMORA MD documented in this encounter Plan of Treatment Upcoming Encounters Date Type Department Care Team (Late st Contact Info) Description 04/25/2024 11:00 AM TURKISH LINE ATTENDANT Appointment [facility] [address] [place] [address] [place] [address] Ti Zamora MD [address] [place] [phone] 05/23/2024 3:30 PM TURKISH LINE ATTENDANT Office Visit [facility] [address] [place] [address] [place] [phone] Jyoti Escobar MD [address] [place] [address] documented as of this encounter Procedures Procedure Name Priority Date/Time Associated Diagnosis Comments ELECTROCARDIOGRAM (NON [place] ACQUIRED) Routine 06/30/2023 9:17 AM CDT Coronary artery disease involving [place] coronary artery of [place] heart, unspecified whether angina present documented in this encounter Results * (ABNORMAL) BASIC METABOLIC PANEL (09/09/2023 10:45 AM CDT) SODIUM S/P/B 143 136 - 145 MMOL/L 09/09/2023 11:03 AM CDT [facility] POTASSIUM S/P/B 4.7 3.5 - 5.1 MMOL/L 09/09/2023 11:03 AM [facility] CHLORIDE S/P/B 104 98 - 107 MMOL/L 09/09/2023 11:03 AM [facility] CO2 33.3(H) 21.0 - 32.0 MMOL/L 09/09/2023 11:03 AM [facility] GLUCOSE 130(H) 70 - 99 MG/DL 09/09/2023 11:03 AM [facility] Comment: FASTING GLUCOSE 100 TO 125 MG/DL IS CONSISTENT WITH IMPAIRED FASTING GLUCOSE. FASTING GLUCOSE >125 MG/DL IS CONSISTENT WITH DIABETES. RANDOM GLUCOSE >200 MG/DL WITH HYPERGLYCEMIC SYMPTOMS IS CONSISTENT WITH DIABETES. PER ADA GUIDELINES BUN 15 6 - 24 MG/DL 09/09/2023 11:03 AM [facility] CREATININE S/P/B 1.20 0.70 - 1.30 MG/DL 09/09/2023 11:03 AM [facility] CALCIUM S/P/B 8.9 8.4 - 10.5 MG/DL 09/09/2023 11:03 AM [facility] ANION GAP 5.7 5.0 - 15.0 MMOL/L 09/09/2023 11:03 AM [facility] OSMOLALITY (CALC) 299 MOSM/KG 024 11:03 AM [facility] Comment:REFERENCE RANGE NOT ESTABLISHED GFR ESTIMATE 68(L) >89 ML/MIN/1. 73 M2 09/09/2023 11:03 AM [facility] GFR NOTES GFR REFERENCE S: 09/09/2023 11:03 AM [facility] Comment: THE ESTIMATED GFR IS [...] ml/min/1.73 m2 09/09/2023 10:4 5 AM CDT PELON Umana APRN LABORATORY Final Result [facility] [address] [place] [address], * ELECTROCARDIOGRAM (06/30/2023 9:17 AM CDT) 06/30/2023 9:17 AM CDT Narrative [facility] - 07/01/2023 8:35 AM CDT ? [facility] ?[address] [place], [place] ??[address] ? Test Date: ?2023-06-30 Pat Name: ? ELZA MCKEON ? Department: ?? 105 ? Room: ? Gender: ? Male ? Dictating Machine Mechanic: ?? : ?1960 ? Requested By: ELZA ALLAN Order Number: [id number] ?Reading MD: ?? Elza Allan ? Measurements Intervals ?[place] ? Rate: ? 92 ? P: ? SD: ? 0 ?QRS: ?118 QRSD: ? 125 ?T: ?111 QT: ? 394 ? QTc: ?488 ? Interpretive Statements PROBABLE ATRIAL FLUTTER LATERAL MYOCARDIAL INFARCTION, PROBABLY OLD WITH POSSIBLE POSTERIOR EXTENSION Procedure Note Elza Allan MD - 07/01/2023 [facility], [facility] [address] [place] [address] Test Date: 2023-06-30 Pat Name: [facility] Department: 105 Room: Gender: Male Dictating Machine Mechanic: : 1960 Requested By: ELZA ALLAN Order Number: [id number] Reading MD: Elza Allan Measurements Intervals [place] Rate: 92 P: SD: 0 QRS: 118 QRSD: 125 T: 111 QT: 394 QTc: 488 Interpretive Statements PROBABLE ATRIAL FLUTTER LATERAL MYOCARDIAL INFARCTION, PROBABLY OLD WITH POSSIBLE POSTERIOREXTENSION Elza Allan MD PROCEDURES-ORDERABLE NO LENO RGE Final Result [facility] documented in this encounter Visit Diagnoses Diagnosis Paroxysmal atrial fibrillation (CMS/HCC HHS/HCC)- Primary Atrial fibrillation Localized edema Edema Coronary artery disease involving [place] coronary artery of [place] heart, unspecified whether angina present Essential (primary) hypertension Unspecified essential hypertension Hyperlipidemia, mixed Mixed hyperlipidemia [facility] use of drug Encounter for long-term (current) use of other medications documented in this encounter Care Teams Buggy Operator Relationship Specialty Start Date End Date Ti Zamora MD [address] [place] [phone] PCP - General FAMILY PRACTICE 12/03/21 Elza Allan MD [place] Bench Lathe Operator CARDIOVASCULAR DISEASE 08/19/16 Raul Santana MD CLINICAL CARDIAC ELECTROPHYSIOLOGY 06/16/17 Danny Blackwell MD [address] [place] [address] ORTHOPAEDIC SURGERY 05/01/19 Gayle Arce APRN, CHANNEL CEMENTER INSOLE MACHINE-C [address] [facility] [address] [place] [phone] NURSE PRACTITIONER 03/03/20 Mendel Shah DPM [address] [place] [address] [place] [address] Consulting Physician PODIATRY/SURGERY 06/27/23 06/26/24 documented as of this encounter
--- OUTSIDE RECORDS SUMMARY | 2024-04-23 04:22 | XMS_ITS | Encounter Summary ---
Author Organization [facility] Address [address] [place] [address]. [place] [address] [place] [address] Care Team Providers Care Bread Wrapping Machine Feeder Name Role Phone Evaristo Allan MD Unavailable Unavailabl Raul Duran MD Unavailable Unavailabl Danny Lopes MD Unavailable [phone] Gayle Arce APRN, DISPATCHER AUTOMOBILE RENTAL-C Unavailable Ti Bonilla MD Primary Care Provider Mendel Shah DPSallie Unavailable [phone] Reason for Visit * Reason Onset Date Comments Appointment Reminder 07/05/2023 Encounter Details Date Type Department Care Team ([facility] Contact Info) Description 07/05/2023 [facility]phone 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 Please arrive him. documented in this encounter Plan of Treatment Upcoming Encounters Date Type Department Care Team (Late st Contact Info) Description 04/25/2024 11:00 AM PROJECT CONTROL MANAGER Appointment [facility] [address] [place] [address] Ti Bonilla MD [address] [place] [phone] 05/23/2024 3:30 PM PROJECT CONTROL MANAGER Office Visit [facility] [address] [place] [phone] Jyoti Escobar MD [address] [place], [place] [phone] documented as of this encounter Visit Diagnoses Not on filedocumented in this encounter Care Teams Bread Wrapping Machine Feeder Relationship Specialty Start Date End Date Ti Bonilla MD [address] [place] [phone] PCP - General FAMILY PRACTICE 12/03/21 Evaristo Allan MD [place] Gmat Instructor CARDIOVASCULAR DISEASE 08/19/16 Raul Santana MD CLINICAL CARDIAC ELECTROPHYSIOLOGY 06/16/17 Danny Blackwell MD [address] [place] [address] ORTHOPAEDIC SURGERY 05/01/19 Gayle Arce APRN, DISPATCHER AUTOMOBILE RENTAL-C [address] [facility] [address] [place] [phone] NURSE PRACTITIONER 03/03/20 Mendel Shah DPM [address] [place] [address] [place] [address] Consulting Physician PODIATRY/SURGERY 06/27/23 06/26/24 documented as of this encounter
--- OUTSIDE RECORDS SUMMARY | 2024-04-23 04:23 | XMS_ITS | Encounter Summary ---
Author Organization [facility] Address [address] [place] [address]. 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 [address] [place] [address] [place] [address] Ti Bonilla MD [address] [place] [phone] 05/23/2024 3:30 PM JAILER CHIEF Office Visit [facility] [place] [phone] Jyoti Escobar MD [address] [place] [phone] documented as of this encounter Visit Diagnoses Not on filedocumented in this encounter Care Teams Manager In Home Relationship Specialty Start Date End Date Ti Bonilla MD [address] [place] [phone] PCP - General FAMILY PRACTICE 12/03/21 Evaristo Allan MD [place] Automobile Repair Service Estimator CARDIOVASCULAR DISEASE 08/19/16 Raul Santana MD CLINICAL CARDIAC ELECTROPHYSIOLOGY 06/16/17 Danny Blackwell MD 5 [place] [address] ORTHOPAEDIC SURGERY 05/01/19 Gayle Arce, BARBARA, COMMUNITY DEVELOPMENT COORDINATOR-C [address] [facility] [address] [place] [phone] NURSE PRACTITIONER 03/03/20 documented as of this encounter
--- OUTSIDE RECORDS SUMMARY | 2024-04-23 04:23 | XMS_ITS | Encounter Summary ---
Author Organization [facility] Address [address] [place] [address]. 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 No / Unsure 09/22/2022 2:56 PM CDT documented as of this encounter Functional [...] st Contact Info) Description 04/25/2024 11:00 AM CAR STEREO INSTALLER Appointment [facility] [address] [place] [address] [place] [address] Ti Bonilla MD [address] [place] [phone] 05/23/2024 3:30 PM CAR STEREO INSTALLER Office Visit [facility] [place] [phone] Jyoti Escobar MD [address] [place] [phone] documented as of this encounter Visit Diagnoses Not on filedocumented in this encounter Care Teams Real Estate Clerk Relationship Specialty Start Date End Date Ti Bonilla MD [address] [place] [phone] PCP - General FAMILY PRACTICE 12/03/21 Evaristo Allan MD [place] Senior Loan Officer CARDIOVASCULAR DISEASE 08/19/16 Raul Santana MD CLINICAL CARDIAC ELECTROPHYSIOLOGY 06/16/17 Danny Blackwell MD 5 [place] [address] ORTHOPAEDIC SURGERY 05/01/19 Gayle Arce, BARBARA, HOT SHOT-C [address] [facility] [address] [place] [phone] NURSE PRACTITIONER 03/03/20 documented as of this encounter
--- OUTSIDE RECORDS SUMMARY | 2024-04-23 04:23 | XMS_ITS | Encounter Summary ---
Author Organization [facility] Address [address] [place] [address]. [place], [place] [address] [place] [address] Care Team Providers Care Calender Let Off Helper Name Role Phone Evaristo Allan MD Unavailable Unavailabl Raul Duran MD Unavailable Unavailabl e Danny Blackwell MD Unavailable [phone] Gayle Arce APRN, HEADER MACHINE OPERATOR-C Unavailable [phone] Ti Bonilla MD Primary Care Provider Reason for Referral * Imaging (Routine) - Closed Specialty Diagnoses / Procedures Referred By Conttianna t Referred To Contact RADIOLOGY Diagnoses 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, with muscle involvement without evidence of necrosis (CMS/HCC HHS/HCC) Procedures [facility] Olivia Pearson FNP [address] [place] [address] Phone: tel: fax: Referral ID Status Reason Start Date Expiration Date V isits Requested Visits Authorized [id number] Closed Vascular Imaging 09/29/2022 09/30/2023 1 1 Encounter Details Date Type Department Care Team (Late st Contact Info) Description 09/29/2022 9:00 AM CDT - 09/29/2022 11:59 PM CDT Hospital Encounter [facility] [address] [place] [address] Olivia Pearson FNP [address] [place] [address] Discharge Disposition: Home or Self Care (Routine [...] TWO TABLETS BY MOUTH DAILY 60 tablet 6 03/03/2022 10/21/2022 gabapentin 300 MG capsule Take 300 mg [...] Progress Notes * Destini Martinez RN - 09/29/2022 9:00 AM CDTEncounter addended by: Destini Martinez RN on: 09/29/2022 10:34 AM Actions taken: MAR administration accepted, Multistep and multistep collection tasks completed * Nusrat Schulz - 09/29/2022 9:00 AM CDTEncounter addended by: Nursat Schulz on: 10/02/2022 9:36 PM Actions taken: Charge Capture section accepted documented in this encounter Plan of Treatment Upcoming Encounters Date Type Department Care Team (Late st Contact Info) Description 04/25/2024 11:00 AM SMOKING TOBACCO PACKING MACHINE HAND Appointment [facility] [address] [place] [address] [place] [address] Ti Bonilla MD [address] [place] [phone] 05/23/2024 3:30 PM SMOKING TOBACCO PACKING MACHINE HAND Office Visit [facility] [address] [place] [address] [place] [phone] Jyoti Escobar MD [address] [place] [phone] documented as of this encounter Procedures Procedure Name Priority Date/Time Associated Diagnosis Comments HC BODY FLUID CULTURE Routine 09/29/2022 10:02 AM CDT 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, with muscle involvement without evidence of necrosis (CMS/HCC HHS/HCC) documented in this encounter Results * [facility] V[facility]ITA (10/14/2022 1:20 PM CDT) Anatomical Region Laterality Modality Extremity Ultrasound us Olivia Pearson ESTATE CONSERVATOR US VASC Final Result * CULTURE, WOUND, W/GRAM STAIN (09/29/2022 10:02 AM CDT) SPEC DESCRIPTION TOE,LEFT 09/29/2022 10:34 AM CDT [facility] SPECIAL REQUESTS NO SPECIAL REQUEST 09/29/2022 10:34 AM CDT [facility] CULTURE RESULT MODERATE STAPHYLOCOCCUS PSEUDINTERMEDIUS 10/03/2022 7:45 AM CDT [facility] CULTURE RESULT FEW ENTEROCOCCUS FAECALIS 10/03/2022 7:45 AM CDT [facility] STRUCTURE OF TOE OF LEFT FOOT / Unknown 09/29/2022 10:02 AM CDT 09/29/2022 10:41 AM CDT Narrative Organism Antibiotic Method Susceptibility Staphylococcus pseudintermedius CLINDAMYCIN TOSHA (JOSEP K) Sensitive Staphylococcus pseudintermedius ERYTHROMYCIN TOSHA (JOSEP K) Sensitive Staphylococcus pseudintermedius GENTAMICIN TOSHA (JOSEP K) Sensitive Staphylococcus pseudintermedius OXACILLIN TOSHA (JOSEP K) Sensitive Staphylococcus pseudintermedius PENICILLIN G TOSHA (JOSEP K) Resistant Staphylococcus pseudintermedius RIFAMPIN TOSHA (JOSEP K) Sensitive Staphylococcus pseudintermedius TRIMETH-SULFAMETH. TOSHA (VITEK) Sensitive Staphylococcus pseudintermedius TETRACYCLINE TOSHA (JOSEP K) Resistant Staphylococcus pseudintermedius VANCOMYCIN TOSHA (JOSEP K) Sensitive Enterococcus faecalis AMPICILLIN TOSHA (VITEK) Sensitive Enterococcus faecalis GENT. SYNERGY SCREEN TOSHA (VITEK) Sensitive Enterococcus faecalis LINEZOLID TOSHA (VITEK) Sensitive Enterococcus faecalis PENICILLIN G TOSHA (VITEK) Sensitive Enterococcus faecalis STR. SYNERGY SCR TOSHA (VITEK) Sensitive Enterococcus faecalis VANCOMYCIN TOSHA (VITEK) Sensitive us Olivia DOVEP MICROBIOLOGY - GENERAL ORDERAB LES Final Result [facility] [address] [place] [address], [place] [phone] [facility] [address] [place] [address], [place] [phone] documented in this encounter Visit Diagnoses Diagnosis 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, with muscle involvement without evidence of necrosis (CMS/HCC HHS/HCC)- Primary documented in this encounter Administered Medications Inactive Administered Medications - up to 3 most recent administrations Medication Order MAR Action Action Date Dose Rate Site lidocaine 2 % URO-JET jelly Topical, Once, 1 dose, On Tue09/29/22 at 1045Indications: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, with muscle involvement without evidence of necrosis (CMS/HCC HHS/HCC) Given 09/29/2022 9:30 AM CDT documented in this encounter Care Teams Calender Let Off Helper Relationship Specialty Start Date End Date Ti Bonilla MD [address] [place] [phone] PCP - General FAMILY PRACTICE 12/03/21 Evaristo Allan MD [place] [employer] Grinding Mill Operator CARDIOVASCULAR DISEASE 08/19/16 Raul Santana MD CLINICAL CARDIAC ELECTROPHYSIOLOGY 06/16/17 Danny Blackwell MD [address] [place] [address] ORTHOPAEDIC SURGERY 05/01/19 Gayle Arce APRN, HEADER MACHINE OPERATOR-C [address] [facility] 47 [place] [address] NURSE PRACTITIONER 03/03/20 documented as of this encounter
--- OUTSIDE RECORDS SUMMARY | 2024-04-23 04:23 | XMS_ITS | Encounter Summary ---
Author Organization [facility] Address [address] [place] [address]. [place], [place] [address] [place] [address] Care Team Providers Care Qa Architect Name Role Phone Evaristo Allan MD Unavailable Unavailabl Raul Duran MD Unavailable Unavailabl Danny Lopes MD Unavailable [phone] Gayle Arce APRN, ENGRAVER PICTURE-C Unavailable Ti Bonilla MD Primary Care Provider Encounter Details Date Type Department Care Team (Late st Contact Info) Description 10/11/2022 Orders Only [facility] [address] [place] [address] Olivia Pearson, [facility] [address] [place] [address] Social History Tobacco Use Types Packs/Day Years [...] 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 [...] No 11/17/2021 3:30 PM CDT Angela Mancuso , [place] Active documented in this encounter Plan of Treatment Upcoming Encounters Date Type Department Care Team (Late st Contact Info) Description 04/25/2024 11:00 AM ARTIFICIAL STONE APPLICATOR Appointment [facility] [address] [place] [address] Ti Bonilla MD [address] [place] [phone] 05/23/2024 3:30 PM ARTIFICIAL STONE APPLICATOR Office Visit [facility] [address] [place] [address] Jyoti Escobar MD [address] [place] [address] documented as of this encounter Visit Diagnoses Not on filedocumented in this encounter Care Teams Qa Architect Relationship Specialty Start Date End Date Ti Bonilla MD [address] [place] [phone] PCP - General FAMILY PRACTICE 12/03/21 Evaristo Allan MD [place] Unemployment Benefits Claims Taker CARDIOVASCULAR DISEASE 08/19/16 Raul Santana MD CLINICAL CARDIAC ELECTROPHYSIOLOGY 06/16/17 Danny Blackwell MD [address] [place] [address] ORTHOPAEDIC SURGERY 05/01/19 Gayle Arce, PULP MILL SUPERVISOR, ENGRAVER PICTURE-C [address] [facility] [address] [place] [address] NURSE PRACTITIONER 03/03/20 documented as of this encounter
--- OUTSIDE RECORDS SUMMARY | 2024-04-23 04:23 | XMS_ITS | Encounter Summary ---
Author Organization [facility] Address [address] [place] [address]. [place], [place] [address] [place] [address] Care Team Providers Care Lens Edge Grinder Machine Name Role Phone Evaristo Allan MD Unavailable Unavailabl Raul Duran MD Unavailable Unavailabl Danny Lopes MD Unavailable [phone] Gayle Arce APRN CUSTOMS BROKERAGE AGENT-C Unavailable [phone] Ti Zamora MD Primary Care Provider Reason for Visit * Reason Onset Date Comments Appointment Request 10/07/2022 Encounter Details Date Type Department Care Team (Late st Contact Info) Description 10/07/2022 Telephone [facility] [address] [place] [address] Myah Handley NP Appointment Request Social History Tobacco Use Types [...] 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 I advised at this time he is not but we can get him scheduled. Sylvie said the office will call back as she is unsure if he really needs the appt. * Shmuel Rosales - 10/07/2022 3:08 PM CDT rcvd 10/07/22 at [address] with [facility] calling to get a mutual pt of Myah Handley scheduled. Pt is Evaristo Zelaya 58. If you could return our call [phone]. Thank you documented in this encounter Plan of Treatment Upcoming Encounters Date Type Department Care Team (Late st Contact Info) Description 04/25/2024 11:00 AM ROLL WINDER Appointment [facility] [address] [place] [address] [place] [address] Ti Zamora MD [address] [place] [phone] 05/23/2024 3:30 PM ROLL WINDER Office Visit [facility] [address] [place] [address] [place] [address] Jyoti Escobar MD [address] [place] [address] documented as of this encounter Visit Diagnoses Not on filedocumented in this encounter Care Teams Lens Edge Grinder Machine Relationship Specialty Start Date End Date Ti Zamora MD [address] [place] [phone] PCP - General FAMILY PRACTICE 12/03/21 Evaristo Allan MD [place] Computer Network Specialist CARDIOVASCULAR DISEASE 08/19/16 Raul Santana MD CLINICAL CARDIAC ELECTROPHYSIOLOGY 06/16/17 Danny Blackwell MD [address] [place] [address] ORTHOPAEDIC SURGERY 05/01/19 Gayle Arce APRN, CUSTOMS BROKERAGE AGENT-C [address] [place] [address] [address] [place] [phone] NURSE PRACTITIONER 03/03/20 documented as of this encounter
--- OUTSIDE RECORDS SUMMARY | 2024-04-23 04:23 | XMS_ITS | Encounter Summary ---
Author Organization [facility] Address [address] [place] [address]. [place], [place] [address] [place] [address] Care Team Providers Care Fire Protection Fabricator Name Role Phone Evaristo Allan MD Unavailable Unavailabl pablo Santana, Raul Reyes MD Unavailable Unavailabl e , Danny Galo MD Unavailable [phone] Gayle Arce APRN, SOLUTION ENGINEER-C Unavailable [phone] Ti Bonilla MD Primary Care Provider [phone] Reason for Referral * Imaging (Emergency) - Closed Specialty Diagnoses / Procedures Referred By Conttianna t Referred To Contact RADIOLOGY Diagnoses Altered mental status Procedures CT HEAD WO CON Daniel Ross PA [address] [place] [phone] Phone: tel: fax: Referral ID Status Reason Start Date Expiration Date Visits Re quested Visits Authorized [id number] Closed 10/14/2022 12/12/2022 1 1 * Imaging (Routine) - Closed Specialty Diagnoses / Procedures Referred By Conttianna t Referred To Contact RADIOLOGY Diagnoses 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, with muscle involvement without evidence of necrosis (CMS/HCC HHS/HCC) Procedures [facility] Olivia Pearson, WOODWORK TEACHER [address] [place] [address] Phone: tel: fax: Referral ID Status Reason Start Date Expiration Date V isits Requested Visits Authorized [id number] Closed Vascular Imaging 09/29/2022 09/30/2023 1 1 Reason for Visit * Imaging (Routine) - Closed Specialty Diagnoses / Procedures Referred By Contac t Referred To Contact RADIOLOGY Diagnoses 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, with muscle involvement without evidence of necrosis (CMS/HCC HHS/HCC) Procedures [facility] Olivia Pearson FNP [address] [place] [address] Phone: tel: fax: Referral ID Status Reason Start Date Expiration Date V isits Requested Visits Authorized [id number] Closed Vascular Imaging 09/29/2022 09/30/2023 1 1 Encounter Details Date Type Department Care Team (Late st Contact Info) Description 10/14/2022 12:23 PM CDT - 10/14/2022 11:59 PM CDT Hospital Encounter [facility] [address] [place] [address] Olivia Pearson FNP [address] [place] [address] Discharge Disposition: Home or Self Care (Routine [...] 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 12/26/2023 clindamycin (CLEOCIN) 300 MG capsule Take 1 capsule (300 mg total) by mouth 3 (three) times daily for 10 days. 30 capsule 10/11/2022 10/21/2022 famotidine 40 MG tablet Take 1 tablet [...] st Contact Info) Description 04/25/2024 11:[address] REPORTER Appointment [facility] [place] [address] Ti Bonilla MD [address] [place] [phone] 05/23/2024 3:[address] REPORTER Office Visit [facility] [address] [place] [address] Jyoti Escobar MD [address] [place] [phone] documented as of this encounter Procedures Procedure Name Priority Date/Time Associated Diagnosis Comments CT HEAD WO CON STAT 10/14/2022 3:21 PM CDT Altered mental status [facility] Routine 10/14/2022 1:20 PM CDT 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, with muscle involvement without evidence of necrosis (CMS/HCC HHS/HCC) documented in this encounter Results * CT HEAD WO CON (10/14/2022 3:21 PM CDT) Anatomical Region Laterality Modality Head Computed Tomogra phy 10/14/2022 3:33 PM CDT Impressions 10/14/2022 3:39 PM CDT IMPRESSION: 1. No acute intracranial hemorrhage. 2. Chronic small vessel ischemic disease and brain atrophy. Ordered By: DANIEL ROSS Interpreted By: Harsh Lopez MD, 10/14/2022 3:33 PM Narrative 10/14/2022 3:39 PM CDT EXAMINATION: CT of the head without contrast DATE: 10/14/2022 CLINICAL HISTORY: Altered mental status. Dizziness. COMPARISON: None. TECHNIQUE: CT examination of the head without contrast ??was performed with axial images obtained. A dose lowering technique was used for this procedure, which may include, but is not limited to, dose reduction technique, automated exposure control, the use of iterative reconstruction, and ALARA (As Low As Reasonably Achievable) / Image Gently techniques. FINDINGS: No midline shift or mass effect. Symmetrical involutional prominence of the ventricles and sulci. Decreased attenuation in the periventricular and subcortical white matter. No acute intracranial hemorrhage. No CT evidence of acute large territorial infarct. No acute skull fracture. No air-fluid levels in the visualized paranasal sinuses or mastoid air cells. ??Intracranial arterial calcifications. Procedure Note Harsh Lopez MD - 10/14/2022 EXAMINATION: CT of the head without contrast DATE: 10/14/2022 CLINICAL HISTORY: Altered mental status. Dizziness. COMPARISON: None. TECHNIQUE: CT examination of the head without contrast was performed withaxial images obtained. A dose lowering technique was used for thisprocedure, which may include, but is not limited to, dose reductiontechnique, automated exposure control, the use of iterativereconstruction, and ALARA (As Low As Reasonably Achievable) / Image Gentlytechniques. FINDINGS: No midline shift or mass effect. Symmetrical involutional prominence ofthe ventricles and sulci. Decreased attenuation in the periventricular andsubcortical white matter. No acute intracranial hemorrhage. No CT evidenceof acute large territorial infarct. No acute skull fracture. No air-fluidlevels in the visualized paranasal sinuses or mastoid air cells.Intracranial arterial calcifications. IMPRESSION: 1. No acute intracranial hemorrhage. 2. Chronic small vessel ischemic disease and brain atrophy. Ordered By: DANIEL ROSS Interpreted By: Harsh Lopez MD, 10/14/2022 3:33 PM us Daniel Ross PA CT Final Result * [facility] (10/14/2022 1:20 PM CDT) Anatomical Region Laterality Modality Extremity Ultrasound us Olivia Pearson WOODWORK TEACHER [facility] Final Result documented in this encounter Visit Diagnoses Diagnosis 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, with muscle involvement without evidence of necrosis (CMS/HCC HHS/HCC) Altered mental status documented in this encounter Care Teams Fire Protection Fabricator Relationship Specialty Start Date End Date Ti Bonilla MD [address] [place] [phone] PCP - General FAMILY PRACTICE 12/03/21 Evaristo Allan MD [place] Image Assembler CARDIOVASCULAR DISEASE 08/19/16 Raul Santana MD CLINICAL CARDIAC ELECTROPHYSIOLOGY 06/16/17 Danny Blackwell MD [address] [place] [address] ORTHOPAEDIC SURGERY 05/01/19 Gayle Arce APRN, SOLUTION ENGINEER-C [address] [phone] NURSE PRACTITIONER 03/03/20 documented as of this encounter
--- OUTSIDE RECORDS SUMMARY | 2024-04-23 04:23 | XMS_ITS | Encounter Summary ---
Author Organization [facility] Address [address] [place] [address]. [place], [place] [address] [place] [address] Care Team Providers Care Accounting Officer Name Role Phone Evaristo Allan MD Unavailable Unavailabl Raul Duran MD Unavailable Unavailabl Danny Lopes MD Unavailable [phone] Gayle Arce APRN, EMERGENCY MANAGEMENT SPECIALIST-C Unavailable Ti Bonilla MD Primary Care Provider [phone] Encounter Details Date Type Department Care Team (Late st Contact Info) Description 10/20/2022 2:21 PM CDT - 10/20/2022 11:59 PM CDT Hospital Encounter 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 [address] [place] [address] [place] [address] Ti Bonilla MD [address] [place] [phone] 05/23/2024 3:30 PM LABORER STEEL HANDLING Office Visit [facility] [place] [phone] Jyoti Escobar MD [address] [place], [place] [phone] documented as of this encounter Visit Diagnoses [...] URO-JET jelly Topical, Once, 1 dose, On Tue10/20/22 at 1545Indications: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, with muscle involvement without evidence of necrosis (CMS/HCC HHS/HCC) Given 10/20/2022 3:46 PM CDT documented in this encounter Care Teams Accounting Officer Relationship Specialty Start Date End Date Ti Bonilla MD [address] [place] [phone] PCP - General FAMILY PRACTICE 12/03/21 Evaristo Allan MD [employer] Neuropsychologist CARDIOVASCULAR DISEASE 08/19/16 Raul Santana MD CLINICAL CARDIAC ELECTROPHYSIOLOGY 06/16/17 Danny Blackwell MD [address] [place] [address] ORTHOPAEDIC SURGERY 05/01/19 Gayle Arce, RACEBOOK WRITER, EMERGENCY MANAGEMENT SPECIALIST-C [address] [facility] [address] [place] [address] NURSE PRACTITIONER 03/03/20 documented as of this encounter
--- OUTSIDE RECORDS SUMMARY | 2024-04-23 04:23 | XMS_ITS | Encounter Summary ---
Author Organization [facility] Address [address] [place] [address]. [place], [place] [address] [place] [address] Care Team Providers Care Steel Pan Form Placing Supervisor Name Role Phone Evaristo Allan MD Unavailable Unavailabl Raul Duran MD Unavailable Unavailabl Danny Lopes MD Unavailable [phone] Gayle Arce APRN, COFFEE WEIGHER-C Unavailable Ti Bonilla MD Primary Care Provider [phone] Encounter Details Date Type Department Care Team (Late st Contact Info) Description 10/15/2022 Orders Only [facility] [address] [facility] [place] [address] Daniel Holman, PA [address] [place] [address] Social History Tobacco Use Types Packs/Day Years [...] 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 Not on [...] st Contact Info) Description 04/25/2024 11:00 AM VARNISH THINNER Appointment [facility] [address] [place] [address] Ti Bonilla MD [address] [place] [phone] 05/23/2024 3:30 PM VARNISH THINNER Office Visit [facility] [address] [place] [address] Jyoti Escobar MD [address] [place] [address] documented as of this encounter Results * (ABNORMAL) COMPREHENSIVE METABOLIC PANEL (10/15/2022 10:08 AM CDT) SODIUM S/P/B 141 136 - 145 MMOL/L 10/15/2022 10:35 AM CDT [facility] POTASSIUM S/P/B 4.2 3.5 - 5.1 MMOL/L 10/15/2022 10:35 AM CDT [facility] CHLORIDE S/P/B 103 98 - 107 MMOL/L 10/15/2022 10:35 AM CDT [facility] CO2 33.2(H) 21.0 - 32.0 MMOL/L 10/15/2022 10:35 AM CDT [facility] GLUCOSE 206(H) 70 - 99 MG/DL 10/15/2022 10:35 AM CDT [facility] Comment: FASTING GLUCOSE 100 TO 125 MG/DL IS CONSISTENT WITH IMPAIRED FASTING GLUCOSE. FASTING GLUCOSE >125 MG/DL IS CONSISTENT WITH DIABETES. RANDOM GLUCOSE >200 MG/DL WITH HYPERGLYCEMIC SYMPTOMS IS CONSISTENT WITH DIABETES. PER ADA GUIDELINES BUN 23 6 - 24 MG/DL 10/15/2022 10:35 AM CDT [facility] CREATININE S/P/B 0.99 0.70 - 1.30 MG/DL 10/15/2022 10:35 AM CDT [facility] CALCIUM S/P/B 9.2 8.4 - 10.5 MG/DL 10/15/2022 10:35 AM CDT [facility] BILIRUBIN TOTAL S/P/B 0.3 0.2 - 1.0 MG/DL 10/15/2022 10:35 AM CDT [facility] Comment: THIS ASSAY IS NOT RECOMMENDED FOR PATIENTS UNDERGOING TREATMENT WITH ELTROMBOPAG DUE TO THE POTENTIAL FOR FALSELY ELEVATED RESULTS. ALKALINE PHOSPHATASE S/P/B 106 45 - 115 U/L 10/15/2022 10:35 AM CDT [facility] AST 27 15 - 37 U/L 10/15/2022 10:35 AM CDT [facility] ALT 50 16 - 63 U/L 10/15/2022 10:35 AM CDT [facility] TOTAL PROTEIN S/P/B 7.1 6.4 - 8.2 G/DL 10/15/2022 10:35 AM CDT [facility] ALBUMIN S/P/B 2.9(L) 3.4 - 5.0 G/DL 10/15/2022 10:35 AM CDT [facility] ANION GAP 4.8(L) 5.0 - 15.0 MMOL/L 10/15/2022 10:35 AM CDT [facility] OSMOLALITY (CALC) 302 MOSM/KG 023 10:35 AM CDT [facility] Comment:REFERENCE RANGE NOT ESTABLISHED GFR ESTIMATE 86(L) >89 ML/MIN/1. 73 M2 10/15/2022 10:35 AM CDT [facility] GFR NOTES GFR REFERENCE S: 10/15/2022 10:35 AM CDT [facility] Comment: THE ESTIMATED GFR IS [...] ml/min/1.73 m2 G5,KIDNEY FAILURE: <15 ml/min/1.73 m2 10/15/2022 10:0 8 AM CDT us [facility] Final Result [facility] [address] [place] [address], * (ABNORMAL) HEMOGLOBIN, GLYCOSYLATED (10/15/2022 10:08 AM CDT) HGB A1C 9.7(H) <5.7 % 10/15/2022 11:03 AM CDT [facility] Comment: 5.7 TO 6.4% INCREASED RISK OF DIABETES > OR = 6.5% CONSISTENT WITH DIABETES PER ADA GUIDELINES ESTIMATED AVG GLUCOSE 232(H) 70 - 140 MG/DL 10/15/2022 11:03 AM CDT [facility] 10/15/2022 10:0 8 AM CDT Daniel [facility] Final Result Performing Organization Address [facility]/ZIP Co de Phone Number [facility] [place] [phone], * PROTIME/INR, VENOUS (10/15/2022 10:08 AM CDT) PROTIME 12.0 9.4 - 12.5 SEC 10/15/2022 10:21 AM CDT [facility] INR 1.0 0.8 - 1.0 10/15/2022 10:21 AM CDT [facility] 10/15/2022 10:0 8 AM CDT Daniel [facility] Final Result Performing Organization Address [facility] Co de Phone Number [facility] [address] [place] [address], * (ABNORMAL) CBC W/DIFF AUTOMATED (10/15/2022 10:08 AM CDT) WBC 5.14 4.00 - 10.80 x10'3/uL 10/15/2022 10:13 AM CDT [facility] RBC 4.63 4.50 - 6.10 x10'6/uL 10/15/2022 10:13 AM CDT [facility] HGB 12.1(L) 13.0 - 18.0 G/DL 10/15/2022 10:13 AM CDT [facility] HCT 39.7 37.0 - 52.0 % 10/15/2022 10:13 AM CDT [facility] MCV 85.7 78.0 - 100.0 FL 10/15/2022 10:13 AM CDT [facility] MCH 26.1(L) 27.0 - 31.0 PG 10/15/2022 10:13 AM CDT [facility] MCHC 30.5(L) 33.0 - 36.0 G/DL 10/15/2022 10:13 AM CDT [facility] RDW 15.4(H) 11.5 - 14.5 % 10/15/2022 10:13 AM CDT [facility] PLT 242 150 - 350 x10'3/uL 10/15/2022 10:13 AM CDT [facility] MPV 11.0(H) 7.4 - 10.4 FL 10/15/2022 10:13 AM CDT [facility] CBC COMMENT NORMAL REFERENCE RANGE NOT ESTABLISHED FOR THE PROPORTIONAL LEUKOCYTE DIFFERENTIAL. 10/15/2022 10:13 AM CDT [facility] NEUTROPHILS % 44.3 % 10/15/2022 10:13 AM CDT [facility] LYMPHOCYTES % 36.8 % 10/15/2022 10:13 AM CDT [facility] MONOCYTES % 14.0 % 10/15/2022 10:13 AM CDT [facility] EOSINOPHILS % 3.7 % 10/15/2022 10:13 AM CDT [facility] BASOPHILS % 1.0 % 10/15/2022 10:13 AM CDT [facility] IMMATURE GRANS % 0.2 % 10/16/19 10:13 AM CDT [facility] NRBC 0.0 % 10/15/2022 10:13 AM CDT [facility] ABS. NEUTROPHILS 2.28 1.60 - 8.30 x10'3/uL 10/15/2022 10:13 AM CDT [facility] ABS. LYMPHOCYTES 1.89 0.80 - 4.70 x10'3/uL 10/15/2022 10:13 AM CDT [facility] ABS. MONOCYTES 0.72 0.00 - 1.50 x10'3/uL 10/15/2022 10:13 AM CDT [facility] ABS. EOSINOPHILS 0.19 0.00 - 0.40 x10'3/uL 10/15/2022 10:13 AM CDT [facility] ABS. BASOPHILS 0.05 0.00 - 0.20 x10'3/uL 10/15/2022 10:13 AM CDT [facility] ABS. IMMATURE GRANULOCYTES 0.01 0.00 - 0.03 x10'3/uL 10/15/2022 10:13 AM CDT [facility] ABS. NUCLEATED RBC'S 0.00 0.00 x10'3/uL 10/15/2022 10:13 AM CDT [facility] 10/15/2022 10:0 8 AM CDT Daniel [facility] Final Result [facility] [address] [place] [address], documented in this encounter Visit Diagnoses Diagnosis Altered mental status- Primary Paroxysmal A-fib ([facility] HHS/HCC) Atrial fibrillation Type II diabetes mellitus ([facility]) Type II or unspecified type diabetes mellitus without mention of complication, not stated as uncontrolled documented in this encounter Care Teams Steel Pan Form Placing Supervisor Relationship Specialty Start Date End Date Ti Bonilla MD [address] [place] [phone] PCP - General FAMILY PRACTICE 12/03/21 Evaristo Allan MD [place] [employer] Emissions Inspector CARDIOVASCULAR DISEASE 08/19/16 Raul Santana MD CLINICAL CARDIAC ELECTROPHYSIOLOGY 06/16/17 Danny Blackwell MD [address] [place] [address] ORTHOPAEDIC SURGERY 05/01/19 Gayle Arce, BARBARA, COFFEE WEIGHER-C [address] [facility] [address] [place] [address] NURSE PRACTITIONER 03/03/20 documented as of this encounter
--- OUTSIDE RECORDS SUMMARY | 2024-04-23 04:23 | XMS_ITS | Encounter Summary ---
Author Organization [facility] Address [address] [place] [address]. [place], [place] [address] [place] [address] Care Team Providers Care Economic Developer Name Role Phone Evaristo Allan MD Unavailable Unavailabl Raul Duran MD Unavailable Unavailabl Danny Lopes MD Unavailable [phone] Gayle Arce APRN, GANG DRILL PRESS OPERATOR-C Unavailable Ti Bonilla MD Primary Care Provider [phone] Encounter Details Date Type Department Care Team (Latest Contact Info) Description 09/22/2022 2:59 PM CDT - 09/22/2022 11:59 PM CDT Hospital Encounter [facility] [address] [place] [address] Ti Bonilla MD [address] [place] [phone] Discharge Disposition: Home or Self Care [...] 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 Not on [...] TRUEPLUS PEN NEEDLES 31G X 8 MM [facility] [place]/19/2021 aspirin EC 81 MG tablet Take [...] st Contact Info) Description 04/25/2024 11:00 AM ASSISTANT PROFESSOR OF CRIMINAL JUSTICE Appointment [facility] [address] [place], [place] [address] [address] Ti Bonilla MD [address] [place] [phone] 05/23/2024 3:30 PM ASSISTANT PROFESSOR OF CRIMINAL JUSTICE Office Visit [facility] [address] [place] [phone] Jyoti Escobar MD [address] [place] [phone] (work) documented as of this encounter Procedures Procedure Name Priority Date/Time Associated Diagnosis Comments XR FOOT LT 3V Routine 09/22/2022 3:10 PM CDT Foot ulcer, left ([facility]/H[facility] HHS/HCC) documented in this encounter Results * XR FOOT LT 3V (09/22/2022 3:10 PM CDT) Anatomical Region Laterality Modality Foot Radiographic Shannan ging 09/23/2022 7:03 PM CDT Impressions 09/23/2022 7:05 PM CDT IMPRESSION: 1. ??No acute findings. 2. ??Calcaneal spurs. Referred By: ?? Interpreted By: Matteo Buenrostro MD, 09/23/2022 7:03 PM Narrative 09/23/2022 7:05 PM CDT Examination: Left foot. Exam time: 1500 hours. Clinical history: Plantar ulcer. ??History of diabetes. Comparison: 09/26/2018. Technique: Three views. Findings: No fracture, dislocation or other acute bony abnormality is identified. ??Calcaneocuboid arthrodesis is again noted as well as orthopedic anchor in the distal aspect of the cuboid. ??Small plantar and moderate sized Achilles calcaneal spurs are again noted. No other significant bone or joint abnormality is noted.Atherosclerotic calcification is noted. The soft tissues are otherwise unremarkable. ??No soft tissue gas or foreign body is identified. Procedure Note Matteo Buenrostro MD - 09/23/2022 Examination: Left foot. Exam time: 1500 hours. Clinical history: Plantar ulcer. History of diabetes. Comparison: 09/26/2018. Technique: Three views. Findings: No fracture, dislocation or other acute bony abnormality isidentified. Calcaneocuboid arthrodesis is again noted as well asorthopedic anchor in the distal aspect of the cuboid. Small plantar andmoderate sized Achilles calcaneal spurs are again noted. No othersignificant bone or joint abnormality is noted.Atheroscleroticcalcification is noted. The soft tissues are otherwise unremarkable. Nosoft tissue gas or foreign body is identified. IMPRESSION: 1. No acute findings. 2. Calcaneal spurs. Referred By: Interpreted By: Matteo Buenrostro MD, 09/23/2022 7:03 PM us Ti Bonilla MD GENERAL IMAGING Final Resul t documented in this encounter Visit Diagnoses Diagnosis Foot ulcer, left (CMS/HCC HHS/HCC) Ulcer of other part of foot documented in this encounter Care Teams Economic Developer Relationship Specialty Start Date End Date Ti Bonilla MD [address] [place] [phone] PCP - General FAMILY PRACTICE 12/03/21 Evaristo Allan MD [place] [employer] Sales Specialist CARDIOVASCULAR DISEASE 08/19/16 Raul Santana MD CLINICAL CARDIAC ELECTROPHYSIOLOGY 06/16/17 Danny Blackwell MD [address] [place] [address] ORTHOPAEDIC SURGERY 05/01/19 Gayle Arce APRN, GANG DRILL PRESS OPERATOR-C [address] [facility] [address] [place] [address] NURSE PRACTITIONER 03/03/20 documented as of this encounter
--- OUTSIDE RECORDS SUMMARY | 2024-04-23 04:23 | XMS_ITS | Encounter Summary ---
Author Organization [facility] Address [address] [place] [address]. [place] [address] [place] [address] Care Team Providers Care Forensic Medical Examiner Name Role Phone Evaristo Allan MD Unavailable Unavailabl Raul Duran MD Unavailable Unavailabl Danny Lopes MD Unavailable [phone] Gayle Arce APRN, BAKER DOUGHNUT-C Unavailable Ti Bonilla MD Primary Care Provider Reason for Visit * Reason Onset Date Comments Prior Authorization 01/27/2022 Encounter Details Date Type Department Care Team ([facility] st Contact Info) Description 01/27/2022 Telephone [facility] ld [address] [place] [address] Gayle Arce, BARBARA, BAKER DOUGHNUT-C [address] [facility] [address] [place] [address] Prior Authorization Social History Tobacco Use Types Packs/Day Years [...] 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 No / Unsure 01/28/2022 9:17 AM CDT documented as of this encounter [...] documented in this encounter Progress Notes * Angelica Carrasquillo LPN - 02/01/2022 9:17 AM CDT Insurance is correct did start an auth through cover my meds. With below Claire. * Angelica Carrasquillo LPN - 01/27/2022 10:01 AM CDT Attempted to get prior auth through Cover my meds for Pradaxa Claire: [id number] cannot get Insurance Eligibility to go through. Did call Evaristo to see if his Insurance has changed. documented in this encounter Plan of Treatment Upcoming Encounters Date Type Department Care Team (Late st Contact Info) Description 04/25/2024 11:00 AM DIRECTOR OF ONLINE MERCHANDISING Appointment [facility] [address] [place] [address] [place] [address] Ti Bonilla MD [address] [place] [phone] 05/23/2024 3:30 PM DIRECTOR OF ONLINE MERCHANDISING Office Visit [facility] [address] [place] [address] [place] [address] Jyoti Escobar MD [address] [place] [address] documented as of this encounter Visit Diagnoses Not on filedocumented in this encounter Care Teams Forensic Medical Examiner Relationship Specialty Start Date End Date Ti Bonilla MD [address] [place] [phone] PCP - General FAMILY PRACTICE 12/03/21 Evaristo Allan MD [place] Client Liaison CARDIOVASCULAR DISEASE 08/19/16 Raul Santana MD CLINICAL CARDIAC ELECTROPHYSIOLOGY 06/16/17 Danny Blackwell MD [address] [place] [address] [phone] ORTHOPAEDIC SURGERY 05/01/19 Gayle Arce APRN, BAKER DOUGHNUT-C [address] [place] [address] [address] [place] [phone] NURSE PRACTITIONER 03/03/20 documented as of this encounter
--- OUTSIDE RECORDS SUMMARY | 2024-04-23 04:23 | XMS_ITS | Encounter Summary ---
Author Organization [facility] Address [address] [place] [address]. 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 No / Unsure 01/22/2022 8:16 AM CDT documented as of this encounter [...] st Contact Info) Description 04/25/2024 11:00 AM TAXIMETER REPAIRER Appointment [facility] [address] [place] [address] [place] [address] Ti Bonilla MD [address] [place] [phone] 05/23/2024 3:30 PM TAXIMETER REPAIRER Office Visit [facility] [place] [phone] Jyoti Escobar MD [address] [place] [phone] documented as of this encounter Visit Diagnoses Not on filedocumented in this encounter Care Teams Nursery Nurse Relationship Specialty Start Date End Date Ti Bonilla MD [address] [place] [phone] PCP - General FAMILY PRACTICE 12/03/21 Evaristo Allan MD [place] Material Inspector CARDIOVASCULAR DISEASE 08/19/16 Raul Santana MD CLINICAL CARDIAC ELECTROPHYSIOLOGY 06/16/17 Danny Blackwell MD [address] [place] [address] ORTHOPAEDIC SURGERY 05/01/19 Gayle Arce, BARBARA, BOOKKEEPING MACHINE MECHANIC-C [address] [facility] [address] [place] [phone] NURSE PRACTITIONER 03/03/20 documented as of this encounter
--- OUTSIDE RECORDS SUMMARY | 2024-04-23 04:23 | XMS_ITS | Encounter Summary ---
Author Organization [facility] Address [address] [place] [address]. [place] [address] [place] [address] Care Team Providers Care Body Builder Apprentice Name Role Phone Evaristo Allan MD Unavailable Unavailabl Raul Duran MD Unavailable Unavailabl Danny Lopes MD Unavailable [phone] Gayle Arce APRN, GOVERNMENT SALES MANAGER-C Unavailable Ti Bonilla MD Primary Care Provider [phone] Reason for Visit * Reason Onset Date Comments Appointment Reminder 05/07/2022 Encounter Details Date Type Department Care Team ([facility] st Contact Info) Description 05/07/2022 [facility]phone [facility] [address] [place] [address] Gayle Arce, BARBARA, GOVERNMENT SALES MANAGER-C [address] [facility] [address] [place] [address] Appointment Reminder Social History Tobacco [...] 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 Asked patient to return call if needing to cancel or r/s. OYEE WELFARE MANAGER documented in this encounter Plan of Treatment Upcoming Encounters Date Type Department Care Team (Late st Contact Info) Description 04/25/2024 11:00 AM EMPLOYEE WELFARE MANAGER Appointment [facility] [address] [place] [address] Ti Bonilla MD [address] [place] [phone] 05/23/2024 3:30 PM EMPLOYEE WELFARE MANAGER Office Visit [facility] [place] [address] Jyoti Escobar MD [address] [place] [address] documented as of this encounter Visit Diagnoses Not on filedocumented in this encounter Care Teams Body Builder Apprentice Relationship Specialty Start Date End Date Ti Bonilla MD [address] [place] [phone] PCP - General FAMILY PRACTICE 12/03/21 Evaristo Allan MD [place] Senior Benefits Analyst CARDIOVASCULAR DISEASE 08/19/16 Raul Santana MD CLINICAL CARDIAC ELECTROPHYSIOLOGY 06/16/17 Danny Blackwell MD [address] [place] [address] ORTHOPAEDIC SURGERY 05/01/19 Gayle Arce, TEACHER BALLET, GOVERNMENT SALES MANAGER-C [address] [place] [address] [address] [place] [address] NURSE PRACTITIONER 03/03/20 documented as of this encounter
--- OUTSIDE RECORDS SUMMARY | 2024-04-23 04:23 | XMS_ITS | Encounter Summary ---
Author Organization [facility] Address [address] [place] [address]. 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 [address] [place] [address] [place] [address] Ti Bonilla MD [address] [place] [phone] 05/23/2024 3:30 PM BLENDER Office Visit [facility] [place] [phone] Jyoti Escobar MD [address] [place] [phone] documented as of this encounter Visit Diagnoses Not on filedocumented in this encounter Care Teams Php Engineer Relationship Specialty Start Date End Date Ti Bonilla MD [address] [place] [phone] PCP - General FAMILY PRACTICE 12/03/21 Evaristo Allan MD [place] Funnel Setter CARDIOVASCULAR DISEASE 08/19/16 Raul Santana MD CLINICAL CARDIAC ELECTROPHYSIOLOGY 06/16/17 Danny Blackwell MD [address] [place] [address] ORTHOPAEDIC SURGERY 05/01/19 Gayle Arce, BARBARA, ATTORNEY RECRUITER-C [address] [facility] 47 [place] [phone] NURSE PRACTITIONER 03/03/20 documented as of this encounter
--- OUTSIDE RECORDS SUMMARY | 2024-04-23 04:23 | XMS_ITS | Encounter Summary ---
Author Organization [facility] Address [address] [place] [address]. [place], [place] [address] [place] [address] Care Team Providers Care Unix Architect Name Role Phone Elza Allan MD Unavailable Unavailabl Raul Duran MD Unavailable Unavailabl Danny Lopes MD Unavailable [phone] Gayle Arce APRN TOOL AND MACHINE MAINTAINER-C Unavailable Ti Zamora MD Primary Care Provider [phone] Reason for Visit * Reason Comments Follow Up Encounter Details Date Type Department Care Team (Late st Contact Info) Description 01/28/2022 9:30 AM CDT Office Visit [facility] eld [address] [place] [phone] Josiah Friedman NP Follow Up Social History Tobacco Use Types Packs/Day Years [...] 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 No / Unsure 01/28/2022 9:17 AM CDT documented as of this encounter Last Filed Vital Signs Vital Sign Reading Time Taken Comments Blood Pressure 112/64 01/28/2022 9:31 AM CDT Pulse 82 01/28/2022 9:31 AM CDT Temperature - - Respiratory Rate 18 01/28/2022 9:31 AM CDT Oxygen Saturation - - Inhaled Oxygen Concentration - - Weight 135.4 kg (298 lb 9.6 oz) 01/28/2022 9:31 AM CDT Height 177.8 cm (5' 10 ) 01/28/2022 9:31 AM CDT Body Mass Index 42.84 01/28/2022 9:31 AM CDT documented in this encounter Functional [...] documented in this encounter Progress Notes * Josiah Friedman NP - 01/28/2022 9:30 AM CDT Images from the original note were not included. Cardiac Electrophysiology Clinic Note PATIENT NAME: Elza Mckeon : 1960 REFERRING PROVIDER: Vernon Mercedes MD PCP: TI ZAMORA MD Reason for Visit Atrial flutter History of Present Illness Mr. Mccabe is a very pleasant 62-year-old male with past medical history including atrial fibrillation, pulmonary vein isolation May 19, [address] Santana, coronary artery disease with history of COMBINATION PRESSER PCI, palpitations. He was noted to be in atypical atrial flutter more recently. He underwent redo atrial fibrillation ablation and left atrial flutter ablation by Dr. Yin on November 17, 2021. He presents today for follow up. He states since his procedure he feels much improvement. He stateshis groin access site healed without difficulty. He does note that his right leg has been more swollen than the left since ablation. He mentioned this to his fixed income analyst, who ordered duplex which was negative for DVT. He remains on furosemide 40 mg daily. He continues Pradaxa 150 mg twice daily without abnormal bleeding or bruising. ECG EKG today reveals sinus rhythm at 82 bpm. RBBB. Diagnosis 1. Recurrent persistent??left??atrial flutter. ??S/P Catheter ablation on 11/17/2021. 2. Paroxysmal atrial fibrillation with history of catheter ablation 05/19/[address] Santana and redo ablation on 11/17/2021. 3. Chronic anticoagulation with Pradaxa for stroke prevention. 4. Hypertension. 5. Diabetes. 6. No known history of coronary artery disease, stroke, cardiomyopathy. Normal stress test and LVEF??of 55-60% in 2020. Recommendations 1. Continue Pradaxa 150 mg p.o. twice daily. 2. Follow up in 1 year, sooner if needed Medications Current Outpatient Medications: ??? celecoxib (CELEBREX) 200 MG capsule, Take 200 mg by mouth daily., Disp: , Rfl: ??? amitriptyline 100 MG tablet, Take 100 mg by mouth 2 (two) times daily. , Disp: , Rfl: ??? aspirin EC 81 MG tablet, Take 81 mg by mouth daily. , Disp: 100 tablet, Rfl: 0 ??? atorvastatin 40 MG tablet, Take 20 mg by mouth nightly at bedtime., Disp: , Rfl: ??? famotidine 40 MG tablet, Take 40 mg by mouth 2 (two) times daily. , Disp: , Rfl: ??? furosemide 20 MG tablet, Take 2 tablets (40 mg total) by mouth daily., Disp: 60 tablet, Rfl: 6 ??? gabapentin 300 MG capsule, Take 300 mg by mouth 3 (three) times daily. , Disp: , Rfl: ??? LEVEMIR 100 UNIT/ML injection, Inject 44 Units into the skin nightly at bedtime. , Disp: , Rfl: ??? metFORMIN 850 MG tablet, Take 850 mg by mouth 2 (two) times daily with meals. , Disp: , Rfl: ??? metoprolol succinate ER (TOPROL-XL) 100 MG 24 hr tablet, Take 1 tablet (100 mg total) by mouth daily., Disp: 30 tablet, Rfl: 5 ??? nitroglycerin 0.4 MG SL tablet, Place 1 tablet (0.4 mg total) under the tongue every 5 (five) minutes as needed for Chest Pain., Disp: 25 tablet, Rfl: 1 ??? NOVOLOG FLEXPEN 100 UNIT/ML injection (PEN), Inject 50 Units as directed 3 (three) times daily before meals. , Disp: , Rfl: ??? PRADAXA 150 MG Cap, TAKE ONE CAPSULE BY MOUTH TWICE A DAY, Disp: 180 capsule, Rfl: 1 ??? tamsulosin 0.4 MG Cap, Take 0.4 mg by mouth daily., Disp: , Rfl: ??? traMADol 50 MG tablet, Take 1 tablet by mouth 3 (three) times a day. , Disp: , Rfl: ??? TRUEPLUS PEN NEEDLES 31G X 8 MM [facility], , Disp: , Rfl: Allergies Allergies Allergen Reactions ??? Doxycycline Other (see comment) Blisters in the mouth ? ? Tetracyclines & Related Other (see comment) Blisters in the mouth Past History Past Medical History: Diagnosis Date ??? Abnormal stress test ??? Arthritis ??? 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 Coronary artery disease ??? Diabetes (CMS/HCC) ??? Fatigue ??? GERD (gastroesophageal reflux disease) ??? Headache ??? Hyperlipidemia ??? Hypertension has had elevated B/P readings ??? Kidney stone ??? SARAI on CPAP ??? Paroxysmal atrial fibrillation (CMS/HCC) ??? PONV (postoperative nausea and vomiting) Past Surgical History: Procedure Laterality Date ??? CARDIAC CATHETERIZATION 01/04/2018 occluded prox RCA w/well developed [id number]-ir-hxkzu collaterals lvef 55-60% ??? CARDIAC CATHETERIZATION 11/13/2018 ??? FRACTURE SURGERY ??? 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 HERNIA REPAIR ??? JOINT REPLACEMENT ??? KNEE ARTHROPLASTY Bilateral ??? LITHOTRIPSY ??? XA ABLATION 05/19/2016 ??? XA CORONARY INTERVENTION 03/24/2018 COMBINATION PRESSER PCI-mid RCA Social History Tobacco Use ??? Smoking status: Never Smoker ??? Smokeless tobacco: Never Used Vaping Use ??? Vaping Use: Never used Substance Use Topics ??? Alcohol use: Yes Comment: social ??? Drug use: No Family History Problem Relation Name Age of Onset ??? Hypertension Mother ??? Hypertension Sister ??? Cancer Brother ??? Diabetes Brother ??? Other (PVD) Brother ??? Hypertension Sister ??? No Known Problems Father ??? No Known Problems Paternal Grandfather ??? No Known Problems Paternal Grandmother ??? No Known Problems Maternal Grandfather ??? No Known Problems Maternal Grandmother Review of Systems Review of Systems Constitutional: Negative for chills and fever. HENT: Negative for hearing loss and nosebleeds. Eyes: Negative for blurred vision and double vision. Respiratory: Negative for cough and hemoptysis. Cardiovascular: Positive for leg swelling. Negative for chest pain. Gastrointestinal: Negative for blood in stool, heartburn, melena and nausea. Genitourinary: Negative for dysuria and hematuria. Musculoskeletal: Negative for falls and myalgias. Skin: Negative for itching and rash. Neurological: Negative for dizziness, focal weakness and loss of consciousness. Endo/Heme/Allergies: Does not bruise/bleed easily. Psychiatric/Behavioral: Negative for depression. The patient is not nervous/anxious. Physical Examination Vitals: 01/28/22 0931 BP: 112/64 Pulse: 82 Resp: 18 Physical Exam Constitutional: General: He is not [...] Cervical back: Neck supple. Right lower leg: Edema present. Left lower leg: Edema present. Skin: General: Skin is warm and dry. Neurological: Mental Status: He is alert and oriented to person, place, and time. Psychiatric: Behavior: Behavior normal. Thought Content: Thought content normal. I spent 33 minutes today reviewing the patient's medical record, obtaining history, performing exam, ordering medications/test/and/or procedures, and documenting, counseling and educating, and coordination of care. Signed JOSIAH FRIEDMAN NP 02/05/2022 documented in this encounter Plan of Treatment Upcoming Encounters Date Type Department Care Team (Late st Contact Info) Description 04/25/2024 11:00 AM AQUACULTURAL WORKER SUPERVISOR Appointment [facility] [address] [place] [address] Ti Zamora MD [address] [place] [phone] 05/23/2024 3:30 PM AQUACULTURAL WORKER SUPERVISOR Office Visit [facility] [address] [place] [phone] Jyoti Escobar MD [address] [place] [address] documented as of this encounter Procedures Procedure Name Priority Date/Time Associated Diagnosis Comments ELECTROCARDIOGRAM (NON MIDMARK ACQUIRED) Routine 01/28/2022 9:28 AM CDT Paroxysmal atrial fibrillation ([facility]) documented in this encounter Results * ELECTROCARDIOGRAM (01/28/2022 9:28 AM CDT) 01/28/2022 9:28 AM CDT Narrative [facility] - 02/01/2022 4:29 PM CDT ? [facility] ?[address] [place], [place] ??[address] ? Test Date: ?2022-01-28 Pat Name: ? ELZA MCKEON ? Department: ?? 105 ? Room: ? Gender: ? Male ? Manpower Development Advisor: ?? : ?1960 ? Requested By: MARITO DAVIS Order Number: [id number] ?Reading MD: ?? Arnel Murillo ? Measurements Intervals ?[place] ? Rate: ? 82 ? P: ?69 NE: ? 147 ?QRS: ?46 QRSD: ? 123 ?T: ?12 QT: ? 385 ? QTc: ?450 ? Interpretive Statements SINUS RHYTHM RIGHT BUNDLE BRANCH BLOCK Procedure Note Arnel Murillo MD - 02/01/2022 [facility], [place] [address] [place] [address] Test Date: 2022-01-28 Pat Name: [facility] Department: 105 Room: Gender: Male Manpower Development Advisor: : 1960 Requested By: MARITO DAVIS Order Number: [id number] Jose Antonio MD: Arnel Murillo Measurements Intervals [place] Rate: 82 P: 69 NE: 147 QRS: 46 QRSD: 123 T: 12 QT: 385 QTc: 450 Interpretive Statements SINUS RHYTHM RIGHT BUNDLE BRANCH BLOCK us Marito Davis MD PROCEDURES-ORDERABLE NO CHARGE Final Result [facility] documented in this encounter Visit Diagnoses Diagnosis Paroxysmal atrial fibrillation ([facility]/HCC) Atrial fibrillation documented in this encounter Care Teams Unix Architect Relationship Specialty Start Date End Date Ti Zamora MD [address] [place] [phone] PCP - General FAMILY PRACTICE 12/03/21 Elza Allan MD [place] Electronic Die Maker CARDIOVASCULAR DISEASE 08/19/16 Raul Santana MD CLINICAL CARDIAC ELECTROPHYSIOLOGY 06/16/17 Danny Blackwell MD [address] [place] [address] ORTHOPAEDIC SURGERY 05/01/19 Gayle Arce APRN, TOOL AND MACHINE MAINTAINER-C [address] [facility] [address] [place] [address] NURSE PRACTITIONER 03/03/20 documented as of this encounter
--- OUTSIDE RECORDS SUMMARY | 2024-04-23 04:23 | XMS_ITS | Encounter Summary ---
Author Organization [facility] Address [address] [place] [address]. 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 [address] [place] [address] [place] [address] Ti Bonilla MD [address] [place] [phone] 05/23/2024 3:30 PM TIP TESTER Office Visit [facility] [place] [phone] Jyoti Escobar MD [address] [place] [phone] documented as of this encounter Visit Diagnoses Not on filedocumented in this encounter Care Teams Certified Peer Specialist Relationship Specialty Start Date End Date Ti Bonilla MD [address] [place] [phone] PCP - General FAMILY PRACTICE 12/03/21 Evaristo Allan MD [place] Opal Miner CARDIOVASCULAR DISEASE 08/19/16 Raul Santana MD CLINICAL CARDIAC ELECTROPHYSIOLOGY 06/16/17 Danny Blackwell MD [address] [place] [address] ORTHOPAEDIC SURGERY 05/01/19 Gayle Arce, BARBARA, WOOD CRAFTSMAN-C [address] [facility] [address] [place] [phone] NURSE PRACTITIONER 03/03/20 documented as of this encounter
--- OUTSIDE RECORDS SUMMARY | 2024-04-23 04:23 | XMS_ITS | Encounter Summary ---
Author Organization [facility] Address [address] [place] [address]. [place], [place] [address] [place] [address] Care Team Providers Care Residential Plumber Name Role Phone Evaristo Allan MD Unavailable Unavailabl e Max, Raul Reyes MD Unavailable Unavailabl e , Danny Galo MD Unavailable [phone] Gayle Arce APRN, BOX TURNER-C Unavailable [phone] Ti Zamora MD Primary Care Provider [phone] Reason for Referral * Imaging (Routine) - Closed Specialty Diagnoses / Procedures Referred By Contac t Referred To Contact RADIOLOGY Diagnoses Abdominal hernia Procedures CT ABD+PEL W CON Ti Zamora MD [address] [place] [phone] Phone: tel: fax: Referral ID Status Reason Start Date Expiration Date Visits Re quested Visits Authorized [id number] Closed 01/20/2022 03/20/2022 1 1 Reason for Visit * Imaging (Routine) - Closed Specialty Diagnoses / Procedures Referred By Contac t Referred To Contact RADIOLOGY Diagnoses Abdominal hernia Procedures CT ABD+PEL W CON Ti Zamora MD [address] [place] [phone] Phone: tel: fax: Referral ID Status Reason Start Date Expiration Date Visits Re quested Visits Authorized [id number] Closed 01/20/2022 03/20/2022 1 1 Encounter Details Date Type Department Care Team (Latest Contact Info) Description 01/29/2022 7:05 AM CDT - 01/29/2022 11:59 PM CDT [facility] En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 12/26/2023 celecoxib (CELEBREX) 200 MG capsule Take 200 mg by mouth daily. 05/20/2022 famotidine 40 MG tablet Take 1 tablet (40 mg total) by mouth 2 (two) times daily. 12/06/2020 12/26/2023 furosemide 20 MG tablet Take 2 tablets (40 mg total) by mouth daily. 60 tablet 6 08/28/2021 03/03/2022 gabapentin 300 MG capsule Take 300 mg [...] st Contact Info) Description 04/25/2024 11:00 AM REGIONAL MARKETING DIRECTOR Appointment [facility] [address] [place] [address] [place] [address] Ti Zamora MD [address] [place] [phone] 05/23/2024 3:30 PM REGIONAL MARKETING DIRECTOR Office Visit [facility] [facility] [address] [place] [address] [place] [address] Jyoti Escobar MD [address] [place] [phone] documented as of this encounter Procedures Procedure Name Priority Date/Time Associated Diagnosis Comments CT ABD+PEL W CON Routine 01/29/2022 8:13 AM CDT Abdominal hernia CREATININE Routine 01/29/2022 7:28 AM CDT documented in this encounter Results * CT ABD+PEL W CON (01/29/2022 8:13 AM CDT) Anatomical Region Laterality Modality Abdomen Computed Tomogra phy 01/29/2022 8:39 AM CDT Impressions 01/29/2022 2:52 PM CDT IMPRESSION: 1. No significant anterior abdominal wall or inguinal hernia is identified. 2. Atherosclerosis and coronary artery disease. 3. Two nonobstructing left renal calculi without evidence for hydronephrosis or obstructive uropathy. 4. Unchanged fatty lesion in the inferior pole of the right kidney. 5. Mild hepatomegaly. The attending radiologist has reviewed the image(s) and agrees with the content of this report. Ordered By: TI ZAMORA Interpreted By: Cal Panchal DO, 01/29/2022 8:39 AM Narrative 01/29/2022 2:52 PM CDT EXAMINATION: CT ABD+PEL W CON EXAM TIME: 01/29/2022 7:37 AM INDICATION: Suspected abdominal hernia. COMPARISON: CT abdomen and pelvis 05/25/2021. Chest radiograph 11/18/2021. TECHNIQUE: Computed tomography of the abdomen, and pelvis was performed after administration of intravenous contrast, 95mL of Isovue-370, without immediate complication, according to routine protocol. A dose lowering technique was used for this procedure, which may include, but is not limited to, dose reduction technique, automated exposure control, and/or the use of iterative reconstruction, in accordance with ALARA (As Low As Reasonably Achievable)/Image Gently principle. FINDINGS: Lower Chest: The visualized portions of the lung bases are without pneumothorax, pleural effusion, or focal consolidation. There is linear atelectasis and/or scarring in the anterior left lower lobe. The visualized mediastinum demonstrates no pericardial effusion. Heart is normal in size. There are coronary artery calcifications. Coronary artery stent is noted. Hepatobiliary: The liver is mildly enlarged and grossly normal in contour. ??The gallbladder appears grossly normal. There is no gallbladder wall thickening or pericholecystic fluid. No biliary duct dilatation is noted. Pancreas: Pancreas appears grossly normal. There is a punctate calcification in the tail of the pancreas, unchanged. Spleen: The spleen is normal in size. Adrenal glands: The adrenal glands are normal. Genitourinary: ??The kidneys enhance symmetrically. The previously visualized fatty lesion at the inferior pole of the right kidney is grossly unchanged and measures approximately 4 mm. There is a nonobstructing left renal calculi at the inferior pole measuring 5 mm. There is a nonobstructing left renal calculi at the superior pole measuring 1-2 mm. There is no evidence for hydronephrosis or obstructive uropathy. The urinary bladder is decompressed. The prostate is grossly normal. Gastrointestinal: No bowel wall thickening or signs of bowel obstruction is identified. There are sigmoid diverticula. The appendix appears grossly normal without surrounding inflammatory change. Peritoneum: There is no free intraperitoneal air or fluid. No anterior wall or significant inguinal hernia is identified. Vascular: The abdominal aorta is normal in caliber. There is atherosclerosis of the abdominal aorta and its branches. Vascular calcifications are noted near the origin of the celiac artery, superior mesenteric artery, bilateral renal arteries, and inferior mesenteric artery. Multiple pelvic phleboliths are noted. Lymphatics: ??No mesenteric or retroperitoneal lymphadenopathy seen. No pelvic or inguinal lymphadenopathy. Musculoskeletal: No acute osseous abnormality or destructive bone lesion. There is multilevel degenerative change of the thoracic and lumbar spine. There are 2 small round hypoattenuating lesions at the right sacral base may represent simple bone cysts. There is mild to moderate osteoarthritic change of the bilateral hips. Procedure Note Harsh Lopez MD - 01/29/2022 EXAMINATION: CT ABD+PEL W CON EXAM TIME: 01/29/2022 7:37 AM INDICATION: Suspected abdominal hernia. COMPARISON: CT abdomen and pelvis 05/25/2021. Chest radiograph 11/18/2021. TECHNIQUE: Computed tomography of the abdomen, and pelvis was performedafter administration of intravenous contrast, 95mL of Isovue-370, withoutimmediate complication, according to routine protocol. A dose loweringtechnique was used for this procedure, which may include, but is notlimited to, dose reduction technique, automated exposure control, and/orthe use of iterative reconstruction, in accordance with ALARA (As Low AsReasonably Achievable)/Image Gently principle. FINDINGS: Lower Chest: The visualized portions of the lung bases are withoutpneumothorax, pleural effusion, or focal consolidation. There is linearatelectasis and/or scarring in the anterior left lower lobe. Thevisualized mediastinum demonstrates no pericardial effusion. Heart isnormal in size. There are coronary artery calcifications. Coronary arterystent is noted. Hepatobiliary: The liver is mildly enlarged and grossly normal in contour.The gallbladder appears grossly normal. There is no gallbladder wallthickening or pericholecystic fluid. No biliary duct dilatation is noted. Pancreas: Pancreas appears grossly normal. There is a punctatecalcification in the tail of the pancreas, unchanged. Spleen: The spleen is normal in size. Adrenal glands: The adrenal glands are normal. Genitourinary: The kidneys enhance symmetrically. The previouslyvisualized fatty lesion at the inferior pole of the right kidney isgrossly unchanged and measures approximately 4 mm. There is anonobstructing left renal calculi at the inferior pole measuring 5 mm.There is a nonobstructing left renal calculi at the superior polemeasuring 1-2 mm. There is no evidence for hydronephrosis or obstructiveuropathy. The urinary bladder is decompressed. The prostate is grosslynormal. Gastrointestinal: No bowel wall thickening or signs of bowel obstructionis identified. There are sigmoid diverticula. The appendix appears grosslynormal without surrounding inflammatory change. Peritoneum: There is no free intraperitoneal air or fluid. No anteriorwall or significant inguinal hernia is identified. Vascular: The abdominal aorta is normal in caliber. There isatherosclerosis of the abdominal aorta and its branches. Vascularcalcifications are noted near the origin of the celiac artery, superiormesenteric artery, bilateral renal arteries, and inferior mesentericartery. Multiple pelvic phleboliths are noted. Lymphatics: No mesenteric or retroperitoneal lymphadenopathy seen. Nopelvic or inguinal lymphadenopathy. Musculoskeletal: No acute osseous abnormality or destructive bone lesion.There is multilevel degenerative change of the thoracic and lumbar spine.There are 2 small round hypoattenuating lesions at the right sacral basemay represent simple bone cysts. There is mild to moderate osteoarthriticchange of the bilateral hips. IMPRESSION: 1. No significant anterior abdominal wall or inguinal hernia isidentified. 2. Atherosclerosis and coronary artery disease. 3. Two nonobstructing left renal calculi without evidence forhydronephrosis or obstructive uropathy. 4. Unchanged fatty lesion in the inferior pole of the right kidney. 5. Mild hepatomegaly. The attending radiologist has reviewed the image(s) and agrees with thecontent of this report. Ordered By: TI ZAMORA Interpreted By: Cal Panchal DO, 01/29/2022 8:39 AM us Ti Zamora MD CT Final Resul t * CREATININE (01/29/2022 7:28 AM CDT) CREATININE S/P/B 0.95 0.70 - 1.30 MG/DL 01/29/2022 7:48 AM CDT [facility] GFR ESTIMATE 90 >89 ML/MIN/1. 73 M2 01/29/2022 7:48 AM CDT [facility] GFR NOTES GFR REFERENCE S: 01/29/2022 7:48 AM CDT [facility] Comment: THE ESTIMATED GFR IS [...] ml/min/1.73 m2 G5,KIDNEY FAILURE: <15 ml/min/1.73 m2 01/29/2022 7:28 AM CDT us Ti Zamora MD LABORATORY Final Resul t [facility] [address] [place] [address], documented in this encounter Visit Diagnoses Diagnosis Abdominal hernia Hernia of unspecified site of abdominal cavity without mention of obstruction or gangrene documented in this encounter Administered Medications Inactive Administered Medications - up to 3 most recent administrations Medication Order MAR Action Action Date Dose Rate Site iopamidol (ISOVUE-370) 76 % injection 95 mL 95 mL, Intravenous, IMG once as needed, Contrast, 1 dose, Starting on Tue01/29/22 at 0813, Until Tue01/29/22 at 0815 Given 01/29/2022 8:15 AM CDT 95 mLs documented in this encounter Care Teams Residential Plumber Relationship Specialty Start Date End Date Ti Zamora MD [address] [place] [phone] PCP - General FAMILY PRACTICE 12/03/21 Evaristo Allan MD Kalona Shank Faker CARDIOVASCULAR DISEASE 08/19/16 Raul Santana MD CLINICAL CARDIAC ELECTROPHYSIOLOGY 06/16/17 Danny Blackwell MD [address] [place] [address] ORTHOPAEDIC SURGERY 05/01/19 Gayle Arce, BARBARA, BOX TURNER-C [address] [facility] [address] [place] [address] NURSE PRACTITIONER 03/03/20 documented as of this encounter
--- OUTSIDE RECORDS SUMMARY | 2024-04-23 04:23 | XMS_ITS | Encounter Summary ---
Author Organization [facility] Address [address] [place] [address]. [place] [address] [place] [address] Care Team Providers Care Hebrew Cantor Name Role Phone Evaristo Allan MD Unavailable Unavailabl Raul Duran MD Unavailable Unavailabl Danny Lopes MD Unavailable [phone] Gayle Arce APRN BRAKE LININGS COATER-C Unavailable Ti Bonilla MD Primary Care Provider Reason for Visit * Reason Onset Date Comments Follow Up Call 02/05/2022 Encounter Details Date Type Department Care Team (Late st Contact Info) Description 02/05/2022 Telephone [facility] [address] [place] [address] Myah Handley NP Follow Up Call Social History Tobacco Use [...] 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 Yin did not have any further recommendations as pt is on lasix. Called pt and LVM for no changes from our standpoint as he is already on lasix. * Cesar Fraire MA - 02/05/2022 2:02 PM CDT I Left detailed message for pt informing per Myah That Myah was unable to speak w/ Dr Yin priorto him leaving for vacation and that Myah will call him back upon Dr. Yin's return. And to return call if he has any questions or concerns. * Myah Handley NP - 02/05/2022 1:35 PM CDT Please let pt know that I was unable to speak w/ Dr Yin prior to him leaving for vacation. Let himknow I will call him back upon Dr. Yin's return. documented in this encounter Plan of Treatment Upcoming Encounters Date Type Department Care Team (Late st Contact Info) Description 04/25/2024 11:00 AM CLERICAL ADJUDICATOR Appointment [facility] [address] [place] [address] [place] [address] Ti Bonilla MD [address] [place] [phone] 05/23/2024 3:30 PM CLERICAL ADJUDICATOR Office Visit [facility] [place] [phone] Jyoti Escobar MD [address] [place] [address] documented as of this encounter Visit Diagnoses Not on filedocumented in this encounter Care Teams Hebrew Cantor Relationship Specialty Start Date End Date Ti Bonilla MD [address] [place] [phone] PCP - General FAMILY PRACTICE 12/03/21 Evaristo Allan MD [place] [employer] Plant Operations Manager CARDIOVASCULAR DISEASE 08/19/16 Raul Santana MD CLINICAL CARDIAC ELECTROPHYSIOLOGY 06/16/17 Danny Blackwell MD [address] [place] [address] ORTHOPAEDIC SURGERY 05/01/19 Gayle Arce, BARBARA, BRAKE LININGS COATER-C [address] [phone] NURSE PRACTITIONER 03/03/20 documented as of this encounter
--- OUTSIDE RECORDS SUMMARY | 2024-04-23 04:23 | XMS_ITS | Encounter Summary ---
Author Organization [facility] Address [address] [place] [address]. 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 [...] st Contact Info) Description 04/25/2024 11:00 AM LINSEED OIL REFINER Appointment [facility] [place] [address] Ti Bonilla MD [address] [place] [phone] 05/23/2024 3:30 PM LINSEED OIL REFINER Office Visit [facility] [address] [place] [address] Jyoti Escobar MD [address] [place] [address] documented as of this encounter Visit Diagnoses Diagnosis Paroxysmal atrial fibrillation ([facility]/H[facility]/HCC)- Primary Atrial fibrillation Coronary artery disease involving umkumiut coronary artery of umkumiut heart, unspecified whether angina present Essential hypertension Unspecified essential hypertension documented in this encounter Care Teams Die Baker Relationship Specialty Start Date End Date Ti Bonilla MD [address] [place], [place] [phone] PCP - General FAMILY PRACTICE 12/03/21 Evaristo Allan MD [place] Building Equipment Inspector CARDIOVASCULAR DISEASE 08/19/16 Raul Santana MD CLINICAL CARDIAC ELECTROPHYSIOLOGY 06/16/17 Danny Blackwell MD [address] [place] [address] ORTHOPAEDIC SURGERY 05/01/19 Gayle Arce, ALUMINUM BOAT INSPECTOR, PRINTER SLOTTER OPERATOR-C [address] [facility] [address] [place] [address] NURSE PRACTITIONER 03/03/20 documented as of this encounter
--- OUTSIDE RECORDS SUMMARY | 2024-04-23 04:23 | XMS_ITS | Encounter Summary ---
Author Organization [facility] Address [address] [place] [address]. [place] [address] [place] [address] Care Team Providers Care Graphite Grinder Name Role Phone Evaristo Allan MD Unavailable Unavailabl Raul Duran MD Unavailable Unavailabl Danny oLpes MD Unavailable [phone] Gayle Arce APRN, PROCESS CAMERA OPERATOR-C Unavailable Ti Bonilla MD Primary Care Provider Reason for Visit * Reason Onset Date Comments Medication 05/20/2022 Encounter Details Date Type Department Care Team (Late st Contact Info) Description 05/20/2022 Telephone [facility] [place] [address] [place] [address], [place] [address] Raul Jeffers, [address] [address] Medication Social History Tobacco Use Types Packs/Day Years [...] 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 Patient needs follow up appointment for anymore refills. Called patient. [facility]. RT CHECKER documented in this encounter Plan of Treatment Upcoming Encounters Date Type Department Care Team (Late st Contact Info) Description 04/25/2024 11:00 AM REPORT CHECKER [address] [facility] [address] [facility] [place] [address] Ti Bonilla MD [address] [place] [phone] 05/23/2024 3:30 PM REPORT CHECKER Office Visit [facility] [address] [facility] [place] [address] Jyoti Escobar MD [address] [place] [address] documented as of this encounter Visit Diagnoses Not on filedocumented in this encounter Care Teams Graphite Grinder Relationship Specialty Start Date End Date Ti Bonilla MD [address] [place] [phone] PCP - General FAMILY PRACTICE 12/03/21 Evaristo Allan MD [place] Housekeeping Manager CARDIOVASCULAR DISEASE 08/19/16 Raul Santana MD CLINICAL CARDIAC ELECTROPHYSIOLOGY 06/16/17 Danny Blackwell MD [address] [place] [address] ORTHOPAEDIC SURGERY 05/01/19 Gayle Arce APRN, PROCESS CAMERA OPERATOR-C [address] [facility] [address] [place] [phone] NURSE PRACTITIONER 03/03/20 documented as of this encounter
--- OUTSIDE RECORDS SUMMARY | 2024-04-23 04:23 | XMS_ITS | Encounter Summary ---
Author Organization [facility] Address [address] [place] [address]. [place], [place] [address] [place] [address] Care Team Providers Care Card Scraper Name Role Phone Evaristo Allan MD Unavailable Unavailabl Raul Duran MD Unavailable Unavailabl Danny Lopes MD Unavailable [phone] Gayle Arce APRN, CHRISTMAS BELL RINGER-C Unavailable Ti Bonilla MD Primary Care Provider Encounter Details Date Type Department Care Team (Late st Contact Info) Description 10/13/2022 9:30 AM CDT - 10/13/2022 11:59 PM CDT Hospital Encounter [facility] [address] [place] [address] Olivia Pearson, STAR ROUTE MAIL DRIVER [address] [place] [phone] Discharge Disposition: Home or Self Care (Routine [...] 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 [address] [facility] [place] [address] Ti Bonilla MD [address] [place] [phone] 05/23/2024 3:30 PM COMMERCIAL PEST CONTROL REPRESENTATIVE Office Visit [facility] [place] [phone] Jyoti Escobar MD [address] [place] [address] documented as of this encounter Visit [...] URO-JET jelly Topical, Once, 1 dose, On Tue10/13/22 at 1045Indications: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, with fat layer exposed (CMS/HCC HHS/HCC) Given 10/13/2022 10:21 AM CDT documented in this encounter Care Teams Card Scraper Relationship Specialty Start Date End Date Ti Bonilla MD [address] [place] [phone] PCP - General FAMILY PRACTICE 12/03/21 Evaristo Allan MD [place] Workers Compensation Attorney CARDIOVASCULAR DISEASE 08/19/16 Raul Santana MD CLINICAL CARDIAC ELECTROPHYSIOLOGY 06/16/17 Danny Blackwell MD [address] [place] [address] ORTHOPAEDIC SURGERY 05/01/19 Gayle Arce APRN, CHRISTMAS BELL RINGER-C [address] [facility] [address] [place] [phone] NURSE PRACTITIONER 03/03/20 documented as of this encounter
--- OUTSIDE RECORDS SUMMARY | 2024-04-23 04:23 | XMS_ITS | Encounter Summary ---
Author Organization [facility] Address [address] [place] [address]. [place] [address] [place] [address] Care Team Providers Care Hotel Maid Name Role Phone Evaristo Allan MD Unavailable Unavailabl Raul Duran MD Unavailable Unavailabl Danny Lopes MD Unavailable [phone] Gayle Arce APRN, RN LONG TERM CARE-C Unavailable Ti Bonilla MD Primary Care Provider Reason for Visit * Reason Onset Date Comments Other 03/03/2022 Pradaxa Encounter Details Date Type Department Care Team (Late st Contact Info) Description 03/03/2022 Telephone [facility] [address] [place] [address] Evaristo Allan MD Other (Pradaxa) Social History Tobacco Use Types Packs/Day Years [...] 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 Please advise below L ATTORNEY * Nalini Orlando RN - 03/04/2022 3:38 PM CST Attempted to return call to patient, no answer L ATTORNEY * Su Clay - 03/03/2022 3:49 PM CST Pt called requesting a call back to discuss a letter he has received regarding his Pradaxa. L ATTORNEY documented in this encounter Plan of Treatment Upcoming Encounters Date Type Department Care Team (Late st Contact Info) Description 04/25/2024 11:00 AM CIVIL ATTORNEY Appointment [facility] [address] [place] [address] [place] [address] Ti Bonilla MD [address] [place] [phone] 05/23/2024 3:30 PM CIVIL ATTORNEY Office Visit [facility] [place] [phone] Jyoti Escobar MD [address] [place] [address] documented as of this encounter Visit Diagnoses Not on filedocumented in this encounter Care Teams Hotel Maid Relationship Specialty Start Date End Date Ti Bonilla MD [address] [place] [phone] PCP - General FAMILY PRACTICE 12/03/21 Evaristo Allan MD [place] Mainframe Analyst CARDIOVASCULAR DISEASE 08/19/16 Raul Santana MD CLINICAL CARDIAC ELECTROPHYSIOLOGY 06/16/17 Danny Blackwell MD [address] [place] [address] ORTHOPAEDIC SURGERY 05/01/19 Gayle Arce APRN, RN LONG TERM CARE-C [address] [place] [address] [address] [place] [address] NURSE PRACTITIONER 03/03/20 documented as of this encounter
--- OUTSIDE RECORDS SUMMARY | 2024-04-23 04:23 | XMS_ITS | Encounter Summary ---
Author Organization [facility] Address [address] [place] [address]. 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 [address] [place] [address] [place] [address] Ti Bonilla MD [address] [place] [phone] 05/23/2024 3:30 PM SHOT MAN Office Visit [facility] [place] [phone] Jyoti Escobar MD [address] [place] [phone] documented as of this encounter Visit Diagnoses Not on filedocumented in this encounter Care Teams Electric Range Assembler Relationship Specialty Start Date End Date Ti Bonilla MD [address] [place] [phone] PCP - General FAMILY PRACTICE 12/03/21 Evaristo Allan MD [place] Steam Train Driver CARDIOVASCULAR DISEASE 08/19/16 Raul Santana MD CLINICAL CARDIAC ELECTROPHYSIOLOGY 06/16/17 Danny Blackwell MD [address] [place] [address] ORTHOPAEDIC SURGERY 05/01/19 Gayle Arce, BARBARA, SUPERVISOR BRAIDING-C [address] [facility] [address] [place] [phone] NURSE PRACTITIONER 03/03/20 documented as of this encounter
--- OUTSIDE RECORDS SUMMARY | 2024-04-23 04:23 | XMS_ITS | Encounter Summary ---
Author Organization [facility] Address [address] [place] [address]. [place], [place] [address] [place] [address] Care Team Providers Care Teacher Aide Clerical Name Role Phone Evaristo Allan MD Unavailable Unavailabl Raul Duran MD Unavailable Unavailabl e Danny Blackwell MD Unavailable [phone] Gayle Arce APRN, ELECTRIC MULE DRIVER-C Unavailable Ti Bonilla MD Primary Care Provider Encounter Details Date Type Department Care Team (Latest Contact Info) Description 10/15/2022 9:58 AM CDT - 10/15/2022 11:59 PM T Hospital Encounter [facility] [address] [place] [address] Angela Hoff, DO [address] [place] [address] Daniel Holman, PA [address] [place] [address] Discharge Disposition: Home or Self Care [...] st Contact Info) Description 04/25/2024 11:00 AM TEACHER EDUCATION INSTRUCTOR Appointment [facility] [address] [place] [address] Ti Bonilla MD [address] [place] [phone] 05/23/2024 3:30 PM TEACHER EDUCATION INSTRUCTOR Office Visit [facility] [address] [place] [address] Jyoti Escobar MD [address] [place] [address] documented as of this encounter Procedures Procedure Name Priority Date/Time Associated Diagnosis Comments HEMOGLOBIN, GLYCOSYLATED Routine 10/15/2022 10:08 AM CDT Altered mental status Paroxysmal A-fib (CMS/HCC HHS/HCC) Type II diabetes mellitus (CMS/HCC HHS/HCC) PROTHROMBIN TIME, VENOUS Routine 10/15/2022 10:08 AM CDT Altered mental status Paroxysmal A-fib (CMS/HCC HHS/HCC) Type II diabetes mellitus (CMS/HCC HHS/HCC) COMPREHENSIVE METABOLIC PANEL Routine 10/15/2022 10:08 AM CDT Altered mental status Paroxysmal A-fib (CMS/HCC HHS/HCC) Type II diabetes mellitus (CMS/HCC HHS/HCC) CBC W/DIFF AUTOMATED Routine 10/15/2022 10:08 AM CDT Altered mental status Paroxysmal A-fib (CMS/HCC HHS/HCC) Type II diabetes mellitus (CMS/HCC HHS/HCC) documented in this encounter Results * (ABNORMAL) COMPREHENSIVE METABOLIC PANEL (10/15/2022 10:08 AM CDT) SODIUM S/P/B 141 136 - 145 MMOL/L 10/15/2022 10:35 AM CDT [facility] POTASSIUM S/P/B 4.2 3.5 - 5.1 MMOL/L 10/15/2022 10:35 AM CDT [facility] CHLORIDE S/P/B 103 98 - 107 MMOL/L 10/15/2022 10:35 AM CDT [facility] CO2 33.2(H) 21.0 - 32.0 MMOL/L 10/15/2022 10:35 AM [facility] GLUCOSE 206(H) 70 - 99 MG/DL 10/15/2022 10:35 AM [facility] Comment: FASTING GLUCOSE 100 TO 125 MG/DL IS CONSISTENT WITH IMPAIRED FASTING GLUCOSE. FASTING GLUCOSE >125 MG/DL IS CONSISTENT WITH DIABETES. RANDOM GLUCOSE >200 MG/DL WITH HYPERGLYCEMIC SYMPTOMS IS CONSISTENT WITH DIABETES. PER ADA GUIDELINES BUN 23 6 - 24 MG/DL 10/15/2022 10:35 AM [facility] CREATININE S/P/B 0.99 0.70 - 1.30 MG/DL 10/15/2022 10:35 AM [facility] CALCIUM S/P/B 9.2 8.4 - 10.5 MG/DL 10/15/2022 10:35 AM [facility] BILIRUBIN TOTAL S/P/B 0.3 0.2 - 1.0 MG/DL 10/15/2022 10:35 AM [facility] Comment: THIS ASSAY IS NOT RECOMMENDED FOR PATIENTS UNDERGOING TREATMENT WITH ELTROMBOPAG DUE TO THE POTENTIAL FOR FALSELY ELEVATED RESULTS. ALKALINE PHOSPHATASE S/P/B 106 45 - 115 U/L 10/15/2022 10:35 AM [facility] AST 27 15 - 37 U/L 10/15/2022 10:35 AM [facility] ALT 50 16 - 63 U/L 10/15/2022 10:35 AM [facility] TOTAL PROTEIN S/P/B 7.1 6.4 - 8.2 G/DL 10/15/2022 10:35 AM [facility] ALBUMIN S/P/B 2.9(L) 3.4 - 5.0 G/DL 10/15/2022 10:35 AM [facility] ANION GAP 4.8(L) 5.0 - 15.0 MMOL/L 10/15/2022 10:35 AM [facility] OSMOLALITY (CALC) 302 MOSM/KG 023 10:35 AM [facility] Comment:REFERENCE RANGE NOT ESTABLISHED GFR ESTIMATE 86(L) >89 ML/MIN/1. 73 M2 10/15/2022 10:35 AM CDT [facility] GFR NOTES GFR REFERENCE S: 10/15/2022 10:35 AM CDT [facility] Comment: THE ESTIMATED GFR IS [...] CDT us [facility] Final Result Performing Organization Address [facility]/ZIP Co de Phone Number [facility] [place] [address], [place] [phone] * (ABNORMAL) HEMOGLOBIN, GLYCOSYLATED (10/15/2022 10:08 AM CDT) HGB A1C 9.7(H) <5.7 % 10/15/2022 11:03 AM CDT [facility] Comment: 5.7 TO 6.4% INCREASED RISK OF DIABETES > OR = 6.5% CONSISTENT WITH DIABETES PER ADA GUIDELINES ESTIMATED AVG GLUCOSE 232(H) 70 - 140 MG/DL 10/15/2022 11:03 AM CDT [facility] 10/15/2022 10:0 8 AM CDT us [facility] Final Result Performing Organization Address City/[facility]/ZIP Co de Phone Number [facility] [address] [place] [address], [place] [phone] * PROTIME/INR, VENOUS (10/15/2022 10:08 AM CDT) PROTIME 12.0 9.4 - 12.5 SEC 10/15/2022 10:21 AM CDT [facility] INR 1.0 0.8 - 1.0 10/15/2022 10:21 AM CDT [facility] 10/15/2022 10:0 8 AM CDT [facility] Final Result [facility] [address] [place] [phone], * (ABNORMAL) CBC W/DIFF AUTOMATED (10/15/2022 10:08 AM CDT) WBC 5.14 4.00 - 10.80 x10'3/uL 10/15/2022 10:13 AM CDT [facility] RBC 4.63 4.50 - 6.10 x10'6/uL 10/15/2022 10:13 AM CDT [facility] HGB 12.1(L) 13.0 - 18.0 G/DL 10/15/2022 10:13 AM CDT [facility] HCT 39.7 37.0 - 52.0 % 10/15/2022 10:13 AM CDT [facility] MCV 85.7 78.0 - 100.0 FL 10/15/2022 10:13 AM CDT [facility] MCH 26.1(L) 27.0 - 31.0 PG 10/15/2022 10:13 AM CDT [facility] MCHC 30.5(L) 33.0 - 36.0 G/DL 10/15/2022 10:13 AM CDT [facility] RDW 15.4(H) 11.5 - 14.5 % 10/15/2022 10:13 AM CDT [facility] PLT 242 150 - 350 x10'3/uL 10/15/2022 10:13 AM CDT [facility] MPV 11.0(H) 7.4 - 10.4 FL 10/15/2022 10:13 AM CDT [facility] CBC COMMENT NORMAL REFERENCE RANGE NOT ESTABLISHED FOR THE PROPORTIONAL LEUKOCYTE DIFFERENTIAL. 10/15/2022 10:13 AM CDT [facility] NEUTROPHILS % 44.3 % 10/15/2022 10:13 AM CDT [facility] LYMPHOCYTES % 36.8 % 10/15/2022 10:13 AM CDT [facility] MONOCYTES % 14.0 % 10/15/2022 10:13 AM CDT [facility] EOSINOPHILS % 3.7 % 10/15/2022 10:13 AM CDT [facility] BASOPHILS % 1.0 % 10/15/2022 10:13 AM CDT [facility] IMMATURE GRANS % 0.2 % 10/16/19 10:13 AM CDT [facility] NRBC 0.0 % 10/15/2022 10:13 AM CDT [facility] ABS. NEUTROPHILS 2.28 1.60 - 8.30 x10'3/uL 10/15/2022 10:13 AM CDT [facility] ABS. LYMPHOCYTES 1.89 0.80 - 4.70 x10'3/uL 10/15/2022 10:13 AM CDT [facility] ABS. MONOCYTES 0.72 0.00 - 1.50 x10'3/uL 10/15/2022 10:13 AM CDT [facility] ABS. EOSINOPHILS 0.19 0.00 - 0.40 x10'3/uL 10/15/2022 10:13 AM CDT [facility] ABS. BASOPHILS 0.05 0.00 - 0.20 x10'3/uL 10/15/2022 10:13 AM CDT [facility] ABS. IMMATURE GRANULOCYTES 0.01 0.00 - 0.03 x10'3/uL 10/15/2022 10:13 AM CDT [facility] ABS. NUCLEATED RBC'S 0.00 0.00 x10'3/uL 10/15/2022 10:13 AM CDT [facility] 10/15/2022 10:0 8 AM CDT [facility] Final Result [facility] [address] [place] [phone], documented in this encounter Visit Diagnoses Diagnosis Altered mental status Paroxysmal A-fib ([facility] HHS/HCC) Atrial fibrillation Type II diabetes mellitus ([facility]) Type II or unspecified type diabetes mellitus without mention of complication, not stated as uncontrolled documented in this encounter Care Teams Teacher Aide Clerical Relationship Specialty Start Date End Date Ti Bonilla MD [address] [place] [phone] PCP - General FAMILY PRACTICE 12/03/21 Evaristo Allan MD [place] [employer] Specialist CARDIOVASCULAR DISEASE 08/19/16 Raul Santana MD CLINICAL CARDIAC ELECTROPHYSIOLOGY 06/16/17 Danny Blackwell MD [address] [place] [address] ORTHOPAEDIC SURGERY 05/01/19 Gayle Arce APRN, ELECTRIC MULE DRIVER-C [address] [facility] [address] [place] [address] NURSE PRACTITIONER 03/03/20 documented as of this encounter
--- OUTSIDE RECORDS SUMMARY | 2024-04-23 04:23 | XMS_ITS | Encounter Summary ---
Author Organization [facility] Address [address] [place] [address]. 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 [address] [place] [address] [place] [address] Ti Bonilla MD [address] [place] [phone] 05/23/2024 3:30 PM TELEPHONE SERVICES SALES REPRESENTATIVE Office Visit [facility] [place] [phone] Jyoti Escobar MD [address] [place] [phone] documented as of this encounter Visit Diagnoses Not on filedocumented in this encounter Care Teams Industrial Aerial Installer Relationship Specialty Start Date End Date Ti Bonilla MD [address] [place] [phone] PCP - General FAMILY PRACTICE 12/03/21 Evaristo Allan MD [employer] Assembler CARDIOVASCULAR DISEASE 08/19/16 Raul Santana MD CLINICAL CARDIAC ELECTROPHYSIOLOGY 06/16/17 Danny Blackwell MD [address] [place] [address] ORTHOPAEDIC SURGERY 05/01/19 Gayle Arce, BARBARA, RESIDENTIAL WORKER-C [address] [facility] [place] [address] [place] [phone] NURSE PRACTITIONER 03/03/20 documented as of this encounter
--- OUTSIDE RECORDS SUMMARY | 2024-04-23 04:24 | XMS_ITS | Encounter Summary ---
Author Organization [facility] Address [address] [place] [address]. [place] [address] [place] [address] Care Team Providers Care Inspector Government Property Name Role Phone Vernon Mercedes MD Primary Care Provider [phone] Evaristo Allan MD Unavailable UnavailRaul Suresh MD Unavailable Unavailabl Danny Lopes MD Unavailable [phone] Gayle Arce APRN, ECONOMICS PROFESSOR-C Unavailable Encounter Details Date Type Department Care Team (Late st Contact Info) Description 08/31/2021 Orders Only [facility] [address] [place], [place] [phone] Evaristo Allan MD Social History Tobacco Use Types Packs/Day Years Used Date Smoking Tobacco: Never Smokeless Tobacco: Never Alcohol Use Standard Drinks/Week Comments Yes 0 (1 standard drink = 0.6 oz pur e alcohol) social Sex and Gender Information Value Date Recorded Sex Assigned at Not on file Legal Sex Male 10:30 AM CDT Gender Identity Not on file Sexual Orientation Not on file 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 No / Unsure 08/27/2021 10:55 AM CDT documented as of this encounter Functional Status * RETIRED Are you deaf or do you have serious difficulty hearing Answer Date of Assessment Author Status No 10/15/2019 4:47 PM CDT Activ e * RETIRED Are you blind or do you have serious difficulty seeing, even when wearing glasses? Answer Date of Assessment Author Status No 10/15/2019 4:47 PM CDT Activ e * Do you have serious difficulty walking or climbing stairs? Answer Date of Assessment Author Status Yes 10/15/2019 4:47 PM CDT Kaylyn Cohen RN Active * Do you have difficulty dressing or bathing? Answer Date of Assessment Author Status No 10/15/2019 4:47 PM CDT Kaylyn Cohen RN Active * Because of a physical, mental, or emotional condition, do you have difficulty doing errands alone such as visiting a doctor's office or shopping? Answer Date of Assessment Author Status No 10/15/2019 4:47 PM MIKKIT Kaylyn Cohen RN Active documented as of this encounter Mental Status * Because of a physical, mental, or emotional condition, do you have serious difficulty concentrating, remembering, or making decisions? Answer Entry Date Author Status No 10/15/2019 4:47 PM MIKKIT Kaylyn Cohen RN Active documented in this encounter Plan of Treatment Upcoming Encounters Date Type Department Care Team (Late st Contact Info) Description 04/25/2024 11:00 AM SUBMARINE CABLE EQUIPMENT TECHNICIAN Appointment [facility] [address] [place] [address] Ti Bonilla MD [address] [place] [phone] 05/23/2024 3:30 PM SUBMARINE CABLE EQUIPMENT TECHNICIAN [facility] [address] [place] [address] Jyoti Escobar MD [address] [place] [address] documented as of this encounter Results * PRE-SURGICAL/PRE-PROCEDURE CORONAVIRUS (COVID 19) (08/31/2021 3:46 PM CDT) SPEC DESCRIPTION NASAL 09/01/19 22 3:44 PM CDT [facility] CORONAVIRUS SARS COV 2 PCR (RESP) NEGATIVE NEGATIVE 09/01/2021 8:03 PM CDT [facility] Comment: THE SARS-CoV-2 TEST HAS BEEN AUTHORIZED BY THE FDA UNDER AN EUA FOR USE BY AUTHORIZED LABORATORIES. PERFORMED BY NUCLEIC ACID AMPLIFICATION PCR FIRST TEST UNKNOWN 08/31/2021 3:44 PM CDT [facility] EMPLOYED IN HEALTHCARE YES 08/31/2021 3:44 PM CDT [facility] SYMPTOMATIC DEFINED BY CDC UNKNOWN 08/31/2021 3:44 PM CDT [facility] HOSPITALIZATION STATUS NO 08/31/2021 3:44 PM CDT [facility] PATIENT IN ICU NO 08/31/2021 3:44 PM CDT [facility] RESIDENT OF [facility] YES 08/31/2021 3:44 PM CDT [facility] NASAL STRUCTURE / Unknown 08/31/2021 3:46 PM CDT us Evaristo Allan MD MICROBIOLOGY - GENERAL SUKHWINDER COOPER Final Result [facility] [address] [place] [address], [facility] [address] [place] [address], documented in this encounter Visit Diagnoses Diagnosis Pre-operative laboratory examination- Primary Pre-procedural laboratory examination documented in this encounter Care Teams Inspector Government Property Relationship Specialty Start Date End Date Vernon Mercedes [place] [address] PCP - General FAMILY PRACTICE 10/27/15 12/02/21 Evar[place] [address] [employer] Hacker CARDIOVASCULAR DISEASE 08/19/16 Raul Sant[place] [address] CLINICAL CARDIAC ELECTROPHYSIOLOGY 06/16/17 Danny Blackwell MD [address] [place], [place] [phone] ORTHOPAEDIC SURGERY 05/01/19 Gayle Arce, PREFORM MACHINE OPERATOR, ECONOMICS PROFESSOR-C [address] [facility] [address] [place] [address] NURSE PRACTITIONER 03/03/20 documented as of this encounter
--- OUTSIDE RECORDS SUMMARY | 2024-04-23 04:24 | XMS_ITS | Encounter Summary ---
Author Organization [facility] Address [address] [place] [address]. 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 No / Unsure 12/31/2021 8:49 AM CDT documented as of this encounter [...] st Contact Info) Description 04/25/2024 11:00 AM NATIONAL RECRUITER Appointment [facility] [address] [place] [address] Ti Bonilla MD [address] [place] [phone] 05/23/2024 3:30 PM NATIONAL RECRUITER Office Visit [facility] [address] [place] [phone] Jyoti Escobar MD [address] [place] [address] documented as of this encounter Results * ELECTROCARDIOGRAM (01/28/2022 9:28 AM CDT) 01/28/2022 9:28 AM CDT Narrative [facility] - 02/01/2022 4:29 PM CDT ? [facility] ?[address] [place], [place] ??[address] ? Test Date: ?2022-01-28 Pat Name: ? ELZA MCKEON ? Department: ?? 105 ? Room: ? Gender: ? Male ? Bottle Hop: ?? : ?1960 ? Requested By: MARITO DAVIS Order Number: [id number] ?Reading MD: ?? Arnel Murillo ? Measurements Intervals ?[place] ? Rate: ? 82 ? P: ?69 MA: ? 147 ?QRS: ?46 QRSD: ? 123 ?T: ?12 QT: ? 385 ? QTc: ?450 ? Interpretive Statements SINUS RHYTHM RIGHT BUNDLE BRANCH BLOCK Procedure Note Arnel Murillo MD - 02/01/2022 [facility] [place] [address] [place] [address] Test Date: 2022-01-28 Pat Name: [facility] Department: 105 Room: Gender: Male Bottle Hop: : 1960 Requested By: MARITO DAVIS Order Number: [id number] Jose Antonio MD: Arnel Murillo Measurements Intervals [place] Rate: 82 P: 69 MA: 147 QRS: 46 QRSD: 123 T: 12 QT: 385 QTc: 450 Interpretive Statements SINUS RHYTHM RIGHT BUNDLE BRANCH BLOCK us Marito Davis MD PROCEDURES-ORDERABLE NO CHARGE Final Result [facility] documented in this encounter Visit Diagnoses Diagnosis Paroxysmal atrial fibrillation (CMS/HCC HHS/HCC)- Primary Atrial fibrillation Paroxysmal atrial fibrillation (CMS/HCC HHS/HCC) Atrial fibrillation documented in this encounter Care Teams Sewer And Drain Technician Relationship Specialty Start Date End Date Ti Bonilla MD [address] [place] [phone] PCP - General FAMILY PRACTICE 12/03/21 Elza Allan MD [place] Alarm Installer CARDIOVASCULAR DISEASE 08/19/16 Raul Santana MD CLINICAL CARDIAC ELECTROPHYSIOLOGY 06/16/17 Danny Blackwell MD [address] [place] [address] ORTHOPAEDIC SURGERY 05/01/19 Gayle Arce, GUIDANCE SECRETARY, BODY TRIMMER-C [address] [facility] [address] [place] [phone] NURSE PRACTITIONER 03/03/20 documented as of this encounter
--- OUTSIDE RECORDS SUMMARY | 2024-04-23 04:24 | XMS_ITS | Encounter Summary ---
Author Organization [facility] Address [address] [place] [address]. [place], [place] [address] [place] [address] Care Team Providers Care Children'S Counselor Name Role Phone Vernon Mercedes MD Primary Care Provider [phone] Elza Allan MD Unavailable Unavailabl Raul Duran MD Unavailable Unavailabl Danny Lopes MD Unavailable [phone] Gayle Arce APRN ORACLE SECURITY CONSULTANT-C Unavailable [phone] Reason for Referral * Procedure (Routine) - Closed Specialty Diagnoses / Procedures Referred By Charito t Referred To Contact Diagnoses Paroxysmal atrial fibrillation ([facility]/HCC HHS/HCC) Procedures Cardioversion external Elza Allan MD [address] [place] [address] [place] [address] [place] [address] Phone: tel: fax: Referral ID Status Reason Start Date Expiration Date Visits Re quested Visits Authorized [id number] Closed 08/31/2021 10/01/2022 1 1 Reason for Visit * Procedure (Routine) - Closed Specialty Diagnoses / Procedures Referred By Charito ledbetter Referred To Contact Diagnoses Paroxysmal atrial fibrillation ([facility] HHS/HCC) Procedures Cardioversion external Elza Allan MD [address] [place] [address] [place] [address] [place] [address] Phone: tel: fax: Referral ID Status Reason Start Date Expiration Date Visits Re quested Visits Authorized [id number] Closed 08/31/2021 10/01/2022 1 1 Encounter Details Date Type Department Care Team (Latest Contact Info) Description 09/02/2021 6:35 AM CDT - 09/02/2021 11:59 PM CDT Hospital Encounter [facility] [address] [place] [address] Elza Allan MD Discharge Disposition: Home or Self Care [...] 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 No / Unsure 09/02/2021 6:32 AM CDT documented as of this encounter Last Filed Vital Signs Vital Sign Reading Time Taken Comments Blood Pressure 99/71 09/02/2021 8:50 AM CDT Pulse 89 09/02/2021 8:50 AM CDT Temperature - - Respiratory Rate 20 09/02/2021 8:50 AM CDT Oxygen Saturation 91% 09/02/2021 8:50 AM CDT Inhaled Oxygen Concentration - - Weight - - Height - - Body Mass Index - - documented in this encounter Functional Status * [...] Assessment Author Status Yes 10/15/2019 4:47 PM Kaylyn Rodriguez RN Active * Do you have difficulty dressing or bathing? Answer Date of Assessment Author Status No 10/15/2019 4:47 PM Kaylyn Rodriguez RN Active * Because of a physical, mental, or emotional condition, do you have difficulty doing errands alone such as visiting a doctor's office or shopping? Answer Date of Assessment Author Status No 10/15/2019 4:47 PM Kaylyn Rodriguez RN Active documented as of this encounter Mental Status * Because of a physical, mental, or emotional condition, do you have serious difficulty concentrating, remembering, or making decisions? Answer Entry Date Author Status No 10/15/2019 4:47 PM Kaylyn Rodriguez RN Active documented in this encounter Medications [...] the skin nightly at bedtime. 12/29/2017 06/30/2023 LEVEMIR FLEXTOUCH 100 UNIT/ML flextouch PEN 05/01/2021 11/03/2021 metoprolol succinate ER 100 MG 24 hr tablet Take 1.5 tablets (150 mg total) by mouth 2 (two) times daily. 90 tablet 6 08/28/2021 09/03/2021 nitroglycerin 0.[address] 1 tablet (0.4 mg total) under the tongue every 5 (five) minutes as needed for Chest Pain. 25 tablet 1 01/04/2018 12/26/2023 PRADAXA 150 MG Cap TAKE ONE CAPSULE BY MOUTH TWICE A DAY 180 capsule 1 08/10/2021 06/30/2023 spironolactone 25 MG tablet 25 mg daily. 04/30/2021 11/03/2021 tamsulosin 0.4 MG Cap Take 1 capsule (0.4 mg total) by mouth daily. 12/26/2023 documented as of this encounter Plan of Treatment Upcoming Encounters Date Type Department Care Team (Late st Contact Info) Description 04/25/2024 11:00 AM TRANSIT CLERK Appointment [facility] [address] [facility] [place] [address] Ti Bonilla MD [address] [place] [phone] 05/23/2024 3:30 PM TRANSIT CLERK Office Visit [facility] [address] [facility] [place] [address] Jyoti Escobar MD [address] [place] [phone] documented as of this encounter Procedures Procedure Name Priority Date/Time Associated Diagnosis Comments BASIC METABOLIC PANEL STAT 09/02/2021 6:43 AM CDT Paroxysmal atrial fibrillation (CMS/HCC HHS/HCC) CARDIOVERSION EXTERNAL Routine 09/02/2021 6:35 AM CDT Paroxysmal atrial fibrillation (CMS/HCC HHS/HCC) ECG 12-LEAD Routine 09/02/2021 12:00 AM CDT Paroxysmal atrial fibrillation (CMS/HCC HHS/HCC) ECG 12-LEAD Routine 09/02/2021 12:00 AM CDT Paroxysmal atrial fibrillation (CMS/HCC HHS/HCC) documented in this encounter Results * (ABNORMAL) BASIC METABOLIC PANEL (09/02/2021 6:43 AM CDT) SODIUM S/P/B 137 136 - 145 MMOL/L 09/02/2021 7:28 AM CDT [facility] POTASSIUM S/P/B 4.1 3.5 - 5.1 MMOL/L 09/02/2021 7:28 AM CDT [facility] CHLORIDE S/P/B 102 98 - 107 MMOL/L 09/02/2021 7:28 AM T [facility] CO2 31.7 21.0 - 32.0 MMOL/L 09/02/2021 7:28 AM T [facility] GLUCOSE 141(H) 74 - 106 MG/DL 09/02/2021 7:28 AM T [facility] BUN 23(H) 7 - 18 MG/DL 09/02/2021 7:28 AM T [facility] CREATININE S/P/B 1.00 0.70 - 1.30 MG/DL 09/02/2021 7:28 AM T [facility] CALCIUM S/P/B 9.2 8.5 - 10.1 MG/DL 09/02/2021 7:28 AM CDT [facility] ANION GAP 3.3(L) 5.0 - 15.0 MMOL/L 09/02/2021 7:28 AM T [facility] OSMOLALITY (CALC) 290 MOSM/KG 022 7:28 AM T [facility] Comment:REFERENCE RANGE NOT ESTABLISHED GFR ESTIMATE 85(L) >90 ML/MIN/1. 73 M2 09/02/2021 7:28 AM T [facility] GFR NOTES GFR REFERENCE S: 09/02/2021 7:28 AM CDT [facility] Comment: THE ESTIMATED GFR [...] ml/min/1.73 m2 G5,KIDNEY FAILURE: <15 ml/min/1.73 m2 09/02/2021 6:43 AM CDT us Elza Allan MD LABORATORY Final Resul t [facility] [address] [place] [address], [id number] * ECG 12 lead (09/02/2021 12:00 AM CDT) 09/02/2021 Narrative [facility] - 09/02/2021 7:44 PM CDT ? [facility] ?[address], [place] ??[address] ? Test Date: ?2021-09-02 Pat Name: ? ELZA MCKEON ? Department: ?? 1 ? Room: ? Gender: ? Male ? Budget Officer: ?? As : ?1960 ? Requested By: ELZA ALLAN Order Number: [id number] ? Reading : ?? Becki Nuñez ? Measurements Intervals ?Stephens ? Rate: ? 76 ? P: ?77 MO: ? 197 ?QRS: ?65 QRSD: ? 129 ?T: ?26 QT: ? 421 ? QTc: ?475 ? Interpretive Statements SINUS RHYTHM RIGHT BUNDLE BRANCH BLOCK Procedure Note Becki Nuñez MD - 09/02/2021 [facility] [address] [place] [address] Test Date: 2021-09-02 Pat Name: ELZA MCKEON Department: 1 Room: Gender: Male Budget Officer: As : 1960 Requested By: ELZA ALLAN Order Number: [id number] Reading MD: Becki Nuñez Measurements Intervals Stephens Rate: 76 P: 77 MO: 197 QRS: 65 QRSD: 129 T: 26 QT: 421 QTc: 475 Interpretive Statements SINUS RHYTHM RIGHT BUNDLE BRANCH BLOCK us Elza Allan MD ECG ORDERABLES Edited Resu lt - Final [facility] * ECG 12 lead (09/02/2021 12:00 AM CDT) 09/02/2021 Narrative [facility] - 09/02/2021 5:43 PM CDT ? [facility] ?[address], [place] ??[address] ? Test Date: ?2021-09-02 Pat Name: ? ELZA MCKEON ? Department: ?? 1 ? Room: ? Gender: ? Male ? Budget Officer: ?? : ?1960 ? Requested By: ELZA ALLAN Order Number: [id number] ? Reading : ?? Arnel Murillo ? Measurements Intervals ?Stephens ? Rate: ? 90 ? P: ?9 MO: ? 278 ?QRS: ?43 QRSD: ? 139 ?T: ?-21 QT: ? 384 ? QTc: ?470 ? Interpretive Statements SINUS RHYTHM WITH FIRST DEGREE AV BLOCK I-RBBB Procedure Note Arnel Murillo MD - 09/02/2021 [facility] [address] [place] [address] Test Date: 2021-09-02 Pat Name: ELZA MCKEON Department: 1 Room: Gender: Male Budget Officer: : 1960 Requested By: ELZA ALLAN Order Number: [id number] Jose Antonio MD: Arnel Murillo Measurements Intervals Stephens Rate: 90 P: 9 MO: 278 QRS: 43 QRSD: 139 T: -21 QT: 384 QTc: 470 Interpretive Statements SINUS RHYTHM WITH FIRST DEGREE AV BLOCK I-RBBB us Elza Allan MD ECG ORDERABLES Edited Resu lt - Final [facility] documented in this encounter Visit Diagnoses Diagnosis Paroxysmal atrial fibrillation (CMS/HCC HHS/HCC)- Primary Atrial fibrillation documented in this encounter Administered Medications Inactive Administered Medications - up to 3 most recent administrations Medication Order MAR Action Action Date Dose Rate Site meperidine (DEMEROL) injection Code/trauma/sedation medication, Starting on Tue09/02/21 at 0810, Until Tue09/02/21 at 0810 Given 09/02/2021 8:10 AM CDT 25 mg midazolam (VERSED) injection Code/trauma/sedation medication, Starting on Tue09/02/21 at 0810, Until Tue09/02/21 at 0814 Given 09/02/2021 8:14 AM CDT 1 mg Given 09/02/2021 8:12 AM CDT 2 mg Given 09/02/2021 8:10 AM CDT 2 mg sodium chloride 0.9% infusion Intravenous, Code/trauma/sedation continuous medication, Starting on Tue09/02/21 at 0807, Until Tue09/02/21 at 0807 New Bag 09/02/2021 8:07 AM CDT 10 mL/hr 10 mL/hr documented in this encounter Care Teams Children'S Counselor Relationship Specialty Start Date End Date Vernon Mercedes MD [address] [place] [phone] PCP - General FAMILY PRACTICE 10/27/15 12/02/21 Elza Allan MD [address] [place] [address] [place] Composing Room Machinist CARDIOVASCULAR DISEASE 08/19/16 Raul Santana MD [address] [place] [address] CLINICAL CARDIAC ELECTROPHYSIOLOGY 06/16/17 Danny Blackwell MD [address] [place] [address] ORTHOPAEDIC SURGERY 05/01/19 Gayle Arce, LAUNDRY OPERATOR WASH ROOM, ORACLE SECURITY CONSULTANT-C [address] [facility] [address] [place] [phone] NURSE PRACTITIONER 03/03/20 documented as of this encounter
--- OUTSIDE RECORDS SUMMARY | 2024-04-23 04:24 | XMS_ITS | Encounter Summary ---
Author Organization [facility] Address [address] [place] [address]. [place] [address] [place] [address] Care Team Providers Care It Security Analyst Name Role Phone Vernon Mercedes MD Primary Care Provider [phone] Evaristo Allan MD Unavailable Unavailabl Raul Duran MD Unavailable Unavailabl Danny Lopes MD Unavailable [phone] Gayle Arce APRN, FIRE CONTROL TECHNICIAN G-C Unavailable [phone] Ti Bonilla MD Primary Care Provider [phone] Reason for Visit * Reason Onset Date Comments Reschedule 11/23/2021 Encounter Details Date Type Department Care Team (Late st Contact Info) Description 11/23/2021 Telephone [facility] [address] [place] [address] Myah Handley, FIRE CONTROL TECHNICIAN G Reschedule Social History Tobacco Use Types Packs/Day Years [...] 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 No / Unsure 12/08/2021 10:41 AM CDT documented as of this encounter [...] documented in this encounter Progress Notes * Court Pearson - 11/23/2021 11:36 AM CDT Pt returned call - appt rescheduled to Myah Handley on 01/28/22 at 9:30 Pt v/u and request new letter * Court Pearson - 11/23/2021 8:58 AM CDT LVM for pt to return call to Dr Yin's office to reschedule appt from Froylan Gonsales to Myah Handley * Court Pearson - 11/23/2021 8:57 AM CDT ----- Message from Joshua Yin MD sent at 11/18/2021 6:58 AM CDT ----- Regarding: F/U RTC in 2 months with Myah Emmanuelle. S/P Left atrial flutter ablation on 11/17/21. documented in this encounter Plan of Treatment Upcoming Encounters Date Type Department Care Team (Late st Contact Info) Description 04/25/2024 11:00 AM METAL FINISH INSPECTOR Appointment [facility] [address] [place] [address] Ti Bonilla MD [address] [place] [address] 05/23/2024 3:30 PM METAL FINISH INSPECTOR Office Visit [facility] [address] [place] [address] Jyoti Escobar MD [address] [place] [address] documented as of this encounter Visit Diagnoses Not on filedocumented in this encounter Care Teams It Security Analyst Relationship Specialty Start Date End Date Vernon Mercedes MD [address] [place] [address] PCP - General FAMILY PRACTICE 10/27/15 12/02/21 Ti Bonilla MD [address] [place] [address] PCP - General FAMILY PRACTICE 12/03/21 Evaristo Allan MD [address] [place] [address] [facility] CARDIOVASCULAR DISEASE 08/19/16 Raul Santana MD [address] [place] [address] CLINICAL CARDIAC ELECTROPHYSIOLOGY 06/16/17 Danny Blackwell MD [address] [place] [address] ORTHOPAEDIC SURGERY 05/01/19 Gayle Arce, PROFESSOR OF MUSIC, FIRE CONTROL TECHNICIAN G-C [address] [facility] [address] [place] [address] NURSE PRACTITIONER 03/03/20 documented as of this encounter
--- OUTSIDE RECORDS SUMMARY | 2024-04-23 04:24 | XMS_ITS | Encounter Summary ---
Author Organization [facility] Address [address] [place] [address]. 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 [...] st Contact Info) Description 04/25/2024 11:00 AM PORTABLE MACHINE CUTTER Appointment [facility] [address] [place] [address] Ti Bonilla MD [address] [place] [phone] 05/23/2024 3:30 PM PORTABLE MACHINE CUTTER Office Visit [facility] [address] [place] [phone] Jyoti Escobar MD [address] [place] [phone] documented as of this encounter Procedures Procedure Name Priority Date/Time Associated Diagnosis Comments HEMOGLOBIN, GLYCOSYLATED Routine 12/15/2021 documented in this encounter Results * HEMOGLOBIN, GLYCOSYLATED (12/15/2021) HGB A1C 8.1 % 12/15/2021 us [facility] Abstract LABORATORY Final Res ult documented in this encounter Visit Diagnoses Not on filedocumented in this encounter Care Teams Curator Medical Museum Relationship Specialty Start Date End Date Ti Bonilla MD [address] [place] [address] PCP - General FAMILY PRACTICE 12/03/21 Evaristo Allan MD [facility] CARDIOVASCULAR DISEASE 08/19/16 Raul Santana MD CLINICAL CARDIAC ELECTROPHYSIOLOGY 06/16/17 Danny Blackwell MD [address] [place] [address] ORTHOPAEDIC SURGERY 05/01/19 Gayle Arce, LEAD APPLICATION ARCHITECT, CLUB ATTENDANT-C [address] [facility] [address] [place] [address] NURSE PRACTITIONER 03/03/20 documented as of this encounter
--- OUTSIDE RECORDS SUMMARY | 2024-04-23 04:24 | XMS_ITS | Encounter Summary ---
Author Organization [facility] Address [address] [place] [address]. [place], [place] [address] [place] [address] Care Team Providers Care Internal Medicine Nurse Name Role Phone Evaristo Allan MD Unavailable Unavailabl Raul Duran MD Unavailable Unavailabl e Danny Blackwell MD Unavailable [phone] Gayle Arce APRN, POULTRY PICKER-C Unavailable Ti Bonilla MD Primary Care Provider Reason for Visit * Reason Comments Lab (SCAN) Encounter Details Date Type Department Care Team (Late st Contact Info) Description 01/14/2022 Scan [facility] [address] [place] [phone] Scanned, Documents Lab (SCAN) Social History Tobacco Use Types [...] Contact Info) Description 04/25/2024 11:00 AM SALES RECRUITMENT SPECIALIST Appointment [facility] [address] [place] [address] Ti Bonilla MD [address] [place] [phone] 05/23/2024 3:30 PM SALES RECRUITMENT SPECIALIST Office Visit [facility] [address] [place] [phone] Jyoti Escobar MD [address] [place] [address]331 documented as of this encounter Procedures Procedure Name Priority Date/Time Associated Diagnosis Comments OUTSIDE LAB (SCAN ORDER) Routine 12/15/2021 HEMOGLOBIN, GLYCOSYLATED Routine 12/15/2021 documented in this encounter Results * HEMOGLOBIN, GLYCOSYLATED (12/15/2021) HGB A1C 8.1 % 12/15/2021 us Doc [facility] Abstract LABORATORY Final Result * OUTSIDE LAB (SCAN) (12/15/2021) 12/15/2021 us Documents Scanned SCANNING Final Result [facility] documented in this encounter Visit Diagnoses Not on filedocumented in this encounter Care Teams Internal Medicine Nurse Relationship Specialty Start Date End Date Ti Bonilla MD [address] [place] [phone] PCP - General FAMILY PRACTICE 12/03/21 Evaristo Allan MD [place] Staff Cytotechnologist CARDIOVASCULAR DISEASE 08/19/16 Raul Santana MD CLINICAL CARDIAC ELECTROPHYSIOLOGY 06/16/17 Danny Blackwell MD [address] [place] [address] ORTHOPAEDIC SURGERY 05/01/19 Gayle Arce APRN, POULTRY PICKER-C [address] [facility] [address] [place] [phone] NURSE PRACTITIONER 03/03/20 documented as of this encounter
--- OUTSIDE RECORDS SUMMARY | 2024-04-23 04:24 | XMS_ITS | Encounter Summary ---
Author Organization [facility] Address [address] [place] [address]. [place] [address] [place] [address] Care Team Providers Care Car Porter Name Role Phone Vernon Mercedes MD Primary Care Provider [phone] Evaristo Allan MD Unavailable UnavailRaul Suresh MD Unavailable Unavailabl Danny Lopes MD Unavailable [phone] Gayle Arce APRN CORONER/MEDICAL EXAMINER-C Unavailable [phone] Reason for Referral * Procedure (Routine) - Closed Specialty Diagnoses / Procedures Referred By Contac t Referred To Contact Diagnoses Paroxysmal atrial fibrillation ([facility]) Procedures Cardioversion external Evaristo Allan MD [address] [facility] [place] [address] [facility] [address] [place] [address] Phone: tel: fax: Referral ID Status Reason Start Date Expiration Date Visits Re quested Visits Authorized [id number] Closed 08/31/2021 10/01/2022 1 1 Reason for Visit * Reason Onset Date Comments Schedule Test 08/28/2021 cardioversion Encounter Details Date Type Department Care Team ([facility] st Contact Info) Description 08/28/2021 Telephone [facility] [address] [place] [address] Evaristo Allan MD Schedule Test (cardioversion) Social History Tobacco Use Types Packs/Day Years [...] 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 Answer Date of Assessment Author Status No 10/15/2019 4:47 PM CDT Kaylyn Cohen RN Active documented as of this encounter Mental Status * Because of a physical, mental, or emotional condition, do you have serious difficulty concentrating, remembering, or making decisions? Answer Entry Date Author Status No 10/15/2019 4:47 PM MIKKIT Kaylyn Cohen RN Active documented in this encounter Progress Notes * Loren Iverson RN - 08/31/2021 9:55 AM CDTAddended by: LOREN IVERSON on: 08/31/2021 09:55 AM Modules accepted: Orders * Loren Iverson RN - 08/31/2021 9:50 AM CDT DCCV scheduled for 09/02/21 at 8 am, arrive at 6:30 am Spoke with patient, he has not had a covid vaccine Agrees to have covid testing at [facility] Agree to date/time for DCCV; pre/post procedure happenings discussed Instructed to continue pradaxa as scheduled. All instructions reviewed. EXPRESSED UNDERSTANDING * Lroen Iverson RN - 08/31/2021 9:27 AM CDT Clarified plan with Dr. Allan Per Dr. Allan: clarify when patient is having colonoscopy: If patient has been off pradaxa for colonoscopy then will need to delay cardioversion X 1 month (needs to be on pradaxa X1 month). Phoned patient, states he has not interrupted his pradaxa; colonoscopy has not been done yet. Made aware will schedule cardioversion since pradaxa has not been interrupted. Agrees to this plan * Mayra Dixon LPN - 08/28/2021 3:57 PM CDT Patient called the office and states he seen Dr. Allan yesterday and he was told they would contact him to schedule him for a cardioversion. He states he has not heard anything about it yet. Please call him at [phone] documented in this encounter Plan of Treatment Upcoming Encounters Date Type Department Care Team (Late st Contact Info) Description 04/25/2024 11:00 AM SYSTEMS TESTER Appointment [facility] [address] [address] Ti Bonilla MD [address] [place] [phone] 05/23/2024 3:30 PM SYSTEMS TESTER Office Visit [facility] [address] [place] [address] Jyoti Escobar MD [address] [place], [place] [phone] documented as of this encounter Visit Diagnoses Diagnosis Paroxysmal atrial fibrillation ([facility]/HCC HHS/HCC)- Primary Atrial fibrillation documented in this encounter Care Teams Car Porter Relationship Specialty Start Date End Date Vernon Mercedes MD [address] [place] [address] PCP - General FAMILY PRACTICE 10/27/15 12/02/21 Evaristo Allan MD [facility] [place] [address] [place] [employer]ace Tender CARDIOVASCULAR DISEASE 08/19/16 Raul Santana MD [facility] [place] [address] CLINICAL CARDIAC ELECTROPHYSIOLOGY 06/16/17 Danny Blackwell MD [address] [place] [address] ORTHOPAEDIC SURGERY 05/01/19 Gayle Arce, MINI BAR ATTENDANT, CORONER/MEDICAL EXAMINER-C [address] [facility] [address] [place] [address] NURSE PRACTITIONER 03/03/20 documented as of this encounter
--- OUTSIDE RECORDS SUMMARY | 2024-04-23 04:24 | XMS_ITS | Encounter Summary ---
Author Organization [facility] Address [address] [place] [address]. [place] [address] [place] [address] Care Team Providers Care Senior Loan Processor Name Role Phone Vernon Mercedes MD Primary Care Provider [phone] Evaristo [place] MD Unavailable Unavailabl Raul Duran MD Unavailable Unavailabl Danny Lopes MD Unavailable [phone] Gayle Arce APRN TRACK WATCHMAN-C Unavailable Reason for Referral * Imaging (Routine) - Closed Specialty Diagnoses / Procedures Referred By Contac t Referred To Contact RADIOLOGY Diagnoses Atrial flutter ([facility]/HCC) Procedures XA AFLUTTER ABLATION Joshua Yin MD [address] [place] [address] Phone: tel: fax: Referral ID Status Reason Start Date Expiration Date Visits Re quested Visits Authorized [id number] Closed 11/04/2021 12/05/2022 1 1 Reason for Visit * Reason Onset Date Comments Schedule Procedure 11/03/2021 Encounter Details Date Type Department Care Team (Late st Contact Info) Description 11/03/2021 Telephone [facility] ld [address] [place] [address] Joshua Yin MD [address] [place] [address] Schedule Procedure Social History Tobacco Use Types [...] 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 No / Unsure 11/03/2021 10:46 AM CDT documented as of this encounter [...] documented in this encounter Progress Notes * Johanny Schaeffer RN - 11/03/2021 3:30 PM CDT Pt returned call - scheduled procedure as follows: 7/30 labs and covid test at [facility] 8/2 arrive 6am for 8:00 procedure Instructions reviewed, letter mailed, patient voiced understanding and had no questions. documented in this encounter Plan of Treatment Upcoming Encounters Date Type Department Care Team (Late st Contact Info) Description 04/25/2024 11:00 AM SURVEYOR'S ASSISTANT Appointment [facility] [address] [place] [address] [place] [address] Ti Bonilla MD [address] [place] [phone] 05/23/2024 3:30 PM SURVEYOR'S ASSISTANT Office Visit [facility] [address] [place] [address] [place] [phone] Jyoti Escobar MD [address] [place] [phone] Pending Results Name Type Priority Associated Diagnoses Date /Time XA AFLUTTER ABLATION Cardiac Cath Routine Atrial flutter ([facility]) 11/17/2021 10:31 AM CDT Scheduled Orders Name Type Priority Associated Diagnoses Orde r Schedule XA AFLUTTER ABLATION Cardiac Cath Routine Atrial flutter ([facility]) Expected: 11/17/2021, Expires: 11/04/2022 documented as of this encounter Results * (ABNORMAL) CBC W/DIFF AUTOMATED (11/14/2021 8:48 AM CDT) [facility] WBC 6.5 4.0 - 10.8 x10'3/uL 11/14/2021 9:02 AM CDT [facility] RBC 4.22(L) 4.50 - 6.10 x10'6/uL 11/14/2021 9:02 AM CDT [facility] HGB 11.3(L) 13.0 - 18.0 G/DL 11/14/2021 9:02 AM CDT [facility] HCT 37.1 37.0 - 52.0 % 11/14/2021 9:02 AM CDT [facility] MCV 87.9 78.0 - 100.0 FL 11/14/2021 9:02 AM CDT [facility] MCH 26.8(L) 27.0 - 31.0 PG 11/14/2021 9:02 AM CDT [facility] MCHC 30.5(L) 33.0 - 36.0 G/DL 11/14/2021 9:02 AM CDT [facility] RDW 15.9(H) 11.5 - 14.5 % 11/14/2021 9:02 AM CDT [facility] PLT 262 150 - 350 x10'3/uL 11/14/2021 9:02 AM CDT [facility] MPV 11.1(H) 7.4 - 10.4 FL 11/14/2021 9:02 AM CDT [facility] DIFFERENTIAL COMMENT NORMAL REFERENCE RANGE NOT ESTABLISHED FOR THE PROPORTIONAL LEUKOCYTE DIFFERENTIAL. 11/14/2021 9:02 AM CDT [facility] SEG NEUTROPHILS 57.3 % 9:02 AM CDT [facility] LYMPHOCYTES 26.9 % 11/14/2021 9:02 AM CDT [facility] MONOCYTES 11.3 % 11/14/2021 9:02 AM CDT [facility] EOSINOPHILS 2.8 % 11/14/2021 9:02 AM CDT [facility] BASOPHILS 1.4 % 11/14/2021 9:02 AM CDT [facility] IMMATURE GRANS % 0.3 % 11/15/19 9:02 AM CDT [facility] NRBC 0.0 % 11/14/2021 9:02 AM CDT [facility] ABS. NEUTROPHILS 3.75 1.60 - 8.30 x10'3/uL 11/14/2021 9:02 AM CDT [facility] ABS. LYMPHOCYTES 1.76 0.80 - 4.70 x10'3/uL 11/14/2021 9:02 AM CDT [facility] ABS. MONOCYTES 0.74 0.00 - 1.50 x10'3/uL 11/14/2021 9:02 AM CDT [facility] ABS. EOSINOPHILS 0.18 0.00 - 0.40 x10'3/uL 11/14/2021 9:02 AM CDT [facility] ABS. BASOPHILS 0.09 0.00 - 0.20 x10'3/uL 11/14/2021 9:02 AM CDT [facility] ABS. IMMATURE GRANULOCYTES 0.02 0.00 - 0.03 x10'3/uL 11/14/2021 9:02 AM CDT [facility] ABS. NUCLEATED RBC'S 0.00 0.00 x10'3/uL 11/14/2021 9:02 AM CDT [facility] 11/14/2021 8:48 AM CDT Joshua Yin MD LABORATORY Final Result [facility] [address] [place] [address], * (ABNORMAL) BASIC METABOLIC PANEL (11/14/2021 8:48 AM CDT) SODIUM S/P/B 140 136 - 145 MMOL/L 11/14/2021 9:17 AM CDT [facility] POTASSIUM S/P/B 4.2 3.5 - 5.1 MMOL/L 11/14/2021 9:17 AM CDT [facility] CHLORIDE S/P/B 104 98 - 107 MMOL/L 11/14/2021 9:17 AM CDT [facility] CO2 30.2 21.0 - 32.0 MMOL/L 11/14/2021 9:17 AM CDT [facility] GLUCOSE 295(H) 70 - 99 MG/DL 11/14/2021 9:17 AM CDT [facility] Comment: FASTING GLUCOSE 100 TO 125 MG/DL IS CONSISTENT WITH IMPAIRED FASTING GLUCOSE. FASTING GLUCOSE >125 MG/DL IS CONSISTENT WITH DIABETES. RANDOM GLUCOSE >200 MG/DL WITH HYPERGLYCEMIC SYMPTOMS IS CONSISTENT WITH DIABETES. PER ADA GUIDELINES BUN 20 6 - 24 MG/DL 11/14/2021 9:17 AM CDT [facility] CREATININE S/P/B 1.11 0.70 - 1.30 MG/DL 11/14/2021 9:17 AM CDT [facility] CALCIUM S/P/B 9.2 8.4 - 10.5 MG/DL 11/14/2021 9:17 AM CDT [facility] ANION GAP 5.8 5.0 - 15.0 MMOL/L 11/14/2021 9:17 AM CDT [facility] OSMOLALITY (CALC) 304 MOSM/KG 022 9:17 AM T [facility] Comment:REFERENCE RANGE NOT ESTABLISHED GFR ESTIMATE 75(L) >89 ML/MIN/1. 73 M2 11/14/2021 9:17 AM CDT [facility] GFR NOTES GFR REFERENCE S: 11/14/2021 9:17 AM T [facility] Comment: THE ESTIMATED GFR IS [...] ml/min/1.73 m2 G5,KIDNEY FAILURE: <15 ml/min/1.73 m2 11/14/2021 8:48 AM CDT Joshua Yin MD LABORATORY Final Result [facility] [address] [place] [address], documented in this encounter Visit Diagnoses Diagnosis Atrial flutter ([facility])- Primary Atrial flutter Anticoagulated Encounter for long-term (current) use of anticoagulants Pre-op testing Preoperative examination, unspecified documented in this encounter Care Teams Senior Loan Processor Relationship Specialty Start Date End Date Vernon Mercedes MD [address] [place] [address] PCP - General FAMILY PRACTICE 10/27/15 12/02/21 Evaristo [place] MD [address] [place] [address] [place] Maintenance Shop Technician CARDIOVASCULAR DISEASE 08/19/16 Raul Santana MD [facility] [place] [address] CLINICAL CARDIAC ELECTROPHYSIOLOGY 06/16/17 Danny Blackwell MD [address] [place] [address] ORTHOPAEDIC SURGERY 05/01/19 Gayle Arce APRN, TRACK WATCHMAN-C [address] [facility] [address] [place] [phone] NURSE PRACTITIONER 03/03/20 documented as of this encounter
--- OUTSIDE RECORDS SUMMARY | 2024-04-23 04:24 | XMS_ITS | Encounter Summary ---
Author Organization [facility] Address [address] [place] [address]. [place] [address] [place] [address] Care Team Providers Care Cma Name Role Phone Evaristo [place] MD Unavailable Unavailabl Raul Duran MD Unavailable Unavailabl e Danny Blackwell MD Unavailable [phone] Gayle Arce APRN, HONING JOB SETTER-C Unavailable Ti Bonilla MD Primary Care Provider Reason for Visit * Reason Onset Date Comments Record Request 12/16/2021 Encounter Details Date Type Department Care Team (Late st Contact Info) Description 12/16/2021 Telephone [facility] [place] [address] [place] [address], [place] [address] Kyle Jeffers, DPSallie [address] [place] [address] Record Request Social History Tobacco Use Types [...] 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 Answer Date of Assessment Author Status No 11/17/2021 3:30 PM CDT Nick Mancuso RN Active * Because of a [...] documented in this encounter Progress Notes * Sasha Mendes MA - 12/16/2021 11:09 AM CDT Received A1C dated 12/15/2021 Saved to folder * Sasha Mendes MA - 12/16/2021 10:45 AM CDT Requested A1C lab result documented in this encounter Plan of Treatment Upcoming Encounters Date Type Department Care Team (Late st Contact Info) Description 04/25/2024 11:00 AM GLEASON GEAR GENERATOR Appointment [facility] [address] [place] [address] [place] [address] Ti Bonilla MD [address] [place] [phone] 05/23/2024 3:30 PM GLEASON GEAR GENERATOR Office Visit [facility] [place] [phone] Jyoti Escobar MD [address] [place], [place] [address] documented as of this encounter Visit Diagnoses Not on filedocumented in this encounter Care Teams Cma Relationship Specialty Start Date End Date Ti Bonilla MD [address] [place] [address] PCP - General FAMILY PRACTICE 12/03/21 Evaristo [place] MD [place] Plate And Weld Inspector CARDIOVASCULAR DISEASE 08/19/16 Raul Santana MD CLINICAL CARDIAC ELECTROPHYSIOLOGY 06/16/17 Danny Blackwell MD [address] [place] [address] ORTHOPAEDIC SURGERY 05/01/19 Gayle Arce APRN, HONING JOB SETTER-C [address] [facility] [address] [place] [phone] NURSE PRACTITIONER 03/03/20 documented as of this encounter
--- OUTSIDE RECORDS SUMMARY | 2024-04-23 04:24 | XMS_ITS | Encounter Summary ---
Author Organization [facility] Address [address] [place] [address]. [place] [address] [place] [address] Care Team Providers Care Emission Specialist Name Role Phone Ton Mercedes MD Primary Care Provider [phone] Evaristo [place] MD Unavailable Unavailabl Raul Duran MD Unavailable Unavailabl Danny Lopes MD Unavailable [phone] Gayle Arce APRN PULP HOUSE SUPERVISOR-C Unavailable [phone] Reason for Visit * Reason Comments Abnormal EKG Atrial Flutter Atrial Fibrillation Edema Palpitations Follow Up Heart Problem Dizziness Fatigue Arrhythmia CHF Encounter Details Date Type Department Care Team (Late st Contact Info) Description 11/03/2021 11:15 AM CDT [facility] [address] [place] [address] Joshua Yin MD [address] [place] [address] Abnormal EKG; Atrial Flutter; Atrial Fibrillation; Edema; Palpitations; Follow Up; Heart Problem; Dizziness; Fatigue; Arrhythmia; CHF Social History Tobacco Use Types Packs/Day Years [...] 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 Cardiac Electrophysiology Clinic Note PATIENT NAME: Evaristo Zelaya : 1960 REFERRING PROVIDER: No ref. provider found PCP: TON MERCEDES MD Reason for Visit Atrial flutter. History of Present Illness Mr. Mccabe is a very pleasant 61-year-old male with past medical history including atrial fibrillation, pulmonary vein isolation May 19, 2016, coronary artery disease with history of SUPERVISOR SIGN SHOP PCI, palpitations. Last seen by Myah Handley NP in October 2018. Previously established with Dr. Santnaa for atrial fibrillation management and pulmonary vein isolation May 2016. He has been followed by general cardiology service over the years. Most recently he was evaluated by Dr. [place] and electrical cardioversion was performed. Successful cardioversion to sinus rhythm.He has been continued on Pradaxa 150 mg p.o. twice daily for history of atrial fibrillation. He hadgeneral cardiology follow-up with Gayle Arce NP today. He was hypotensive with systolic blood pressure 80 mmHg. EKG was done revealing atrial flutter rate 71 bpm. EP service was asked to see him as an Access appointment for atrial flutter. He presents to clinic today for consultation regarding atrial flutter. His is present with him. The patient states he felt good for a few days after cardioversion . He now feels flutters and chest and shortness of breath with much less than 1 city block ambulatory tolerance. He states his blood pressures have been low with systolic blood pressures noted around 66 mmHg- 110 mmHg as his brought blood pressure cuff into clinic today. He states he felt very good for about a year after his atrial fibrillation catheter ablation in 2016. He has been compliant with all of his medicationsincluding his Pradaxa 150 mg p.o. twice daily. ECG Atrial flutter 71 bpm. Atrial flutter noted on EKGs from 08/23/2021 and 12/23/2020. No atrial arrhythmias May 2018 30-day event monitor. SVT on 30-day noted November 2018. Additional monitor noted February 2020 with occasional supraventricular ectopic beats and 3-4 beat runs of SVT noted. Possible atrial tachycardia. Diagnosis 1. Persistent atypical atrial flutter. Post electrical cardioversion 09/02/2021. Symptomatic with palpitations and shortness of breath along with hypotension. 2. Paroxysmal atrial fibrillation with history of catheter ablation 05/19/[address] Santana. No evidence of recurrence since that time. 3. Last LVEF 55-60% in 2020. 4. Normal stress test 12/2020. 5. Hypertension. 6. Diabetes. 7. BPH. 8. No known history of coronary artery disease, stroke, cardiomyopathy, Recommendations 1. Adjusted antihypertensives and lower dose of beta-francesca to 100 mg once in the evening and discontinued his morning dose. 2. Continue Pradaxa 150 mg p.o. twice daily. 3. Reconfirm pulmonary vein isolation with catheter ablation of atypical left atrial flutter, conscious sedation. Rationale for procedure, risks and benefits discussed with the patient and his . Questions answered. They wish to proceed. Medications Current Outpatient Medications: ??? amitriptyline 100 MG tablet, Take 100 [...] (TOPROL-XL) 100 MG 24 hr tablet, Take 100 mg by mouth 2 (two) times a day., Disp: , Rfl: ??? nitroglycerin 0.4 MG SL tablet, Place [...] TRUEPLUS PEN NEEDLES 31G X 8 MM [facility], , Disp: , Rfl: Allergies Allergies Allergen [...] CATHETERIZATION 01/04/2018 occluded prox RCA w/well developed [id number] collaterals lvef 55-60% ??? CARDIAC CATHETERIZATION 11/13/2018 ??? FRACTURE SURGERY ??? 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 HERNIA REPAIR ??? JOINT REPLACEMENT ??? KNEE ARTHROPLASTY Bilateral ??? LITHOTRIPSY ??? XA ABLATION 05/19/2016 ??? XA CORONARY INTERVENTION 03/24/2018 SUPERVISOR SIGN SHOP PCI-mid RCA Social History Tobacco Use ??? [...] for cough and hemoptysis. Cardiovascular: Positive for palpitations and leg swelling. Negative for chest pain. Gastrointestinal: [...] Behavior normal. Thought Content: Thought content normal. IJOSHUA MD, performed a Consultation and History & Physical examination of the patient and discussed the management with the Advanced Practice Provider (GERRI). I reviewed the GERRI's note and agree with the findings and plan of care, except as I have documented. Plan of care developed under my direct supervision. Signed ALFREDO GONSALES PA-C 11/03/2021 documented in this encounter Plan of Treatment Upcoming Encounters Date Type Department Care Team (Late st Contact Info) Description 04/25/2024 11:00 AM MILL MANAGER Appointment [facility] [address] [place] [address] [place] [address] Ti Bonilla MD [address] [place] [phone] 05/23/2024 3:30 PM MILL MANAGER [facility] [address] [place] [phone] Jyoti Escobar MD [address] [place] [address] documented as of this encounter Visit Diagnoses Diagnosis Atypical atrial flutter (CMS/HCC HHS/HCC)- Primary Atrial flutter documented in this encounter Care Teams Emission Specialist Relationship Specialty Start Date End Date Ton Mercedes MD [address] [place] [phone] PCP - General FAMILY PRACTICE 10/27/15 12/02/21 Evaristo [place] MD [facility] [place] [address] [place] Manager Quality Improvement CARDIOVASCULAR DISEASE 08/19/16 Raul Santana MD [address] [place] [address] CLINICAL CARDIAC ELECTROPHYSIOLOGY 06/16/17 Danny Blackwell MD [address] [place] [address] ORTHOPAEDIC SURGERY 05/01/19 Gayle Arce APRN, PULP HOUSE SUPERVISOR-C 9 [facility] [address] [place] [address] NURSE PRACTITIONER 03/03/20 documented as of this encounter
--- OUTSIDE RECORDS SUMMARY | 2024-04-23 04:24 | XMS_ITS | Encounter Summary ---
Author Organization [facility] Address [address] [place] [address]. [place], [place] [address] [place] [address] Care Team Providers Care Credit Investigator Name Role Phone Vernon Mercedes MD Primary Care Provider [phone] Evaristo [place] MD Unavailable Unavailabl Raul Duran MD Unavailable Unavailabl Danny Lopes MD Unavailable [phone] Gayle Arce APRN, FABRICATION ENGINEER-C Unavailable Encounter Details Date Type Department Care Team (Late st Contact Info) Description 11/04/2021 Prep for Procedure [facility] [address] [place] [address] Joshua Yin MD [address] [place] [address] Social History Tobacco Use Types [...] 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 Not on [...] st Contact Info) Description 04/25/2024 11:00 AM QA ANALYST Appointment [facility] [address] [place] [address] Ti Bonilla MD [address] [place] [phone] 05/23/2024 3:30 PM QA ANALYST Office Visit [facility] [address] [place] [phone] Jyoti Escobar MD [address] [place] [address] documented as of this encounter Visit Diagnoses Not on filedocumented in this encounter Care Teams Credit Investigator Relationship Specialty Start Date End Date Vernon Mercedes MD [address] [place] [address] PCP - General FAMILY PRACTICE 10/27/15 12/02/21 Evaristo [place] MD [facility] [address] [place] Insurance Agent CARDIOVASCULAR DISEASE 08/19/16 Raul Santana MD [facility] [address] CLINICAL CARDIAC ELECTROPHYSIOLOGY 06/16/17 Danny Blackwell MD [address] [place] [address] ORTHOPAEDIC SURGERY 05/01/19 Gayle Arce, DIAMOND DIE POLISHER, FABRICATION ENGINEER-C [address] [facility] [address] [place] [phone] NURSE PRACTITIONER 03/03/20 documented as of this encounter
--- OUTSIDE RECORDS SUMMARY | 2024-04-23 04:24 | XMS_ITS | Encounter Summary ---
Author Organization [facility] Address [address] [place] [address]. [place] [address] [place] [address] Care Team Providers Care Small Parts Shaper Operator Name Role Phone Vernon Mercedes MD Primary Care Provider [phone] Evaristo [place] MD Unavailable Unavailabl Raul Duran MD Unavailable Unavailabl Danny Lopes MD Unavailable [phone] Gayle Arce APRN, MOBILE SECURITY ARCHITECT-C Unavailable [phone] Reason for Visit * Reason Onset Date Comments Problem 11/02/2021 Encounter Details Date Type Department Care Team (Late st Contact Info) Description 11/02/2021 Telephone [facility] [address] [place] [address] Evaristo Allan MD Problem Social History Tobacco Use Types Packs/Day Years [...] 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 Last documentation on 09/29/21 regarding low blood pressure; metoprolol succinate was decreased to 100 mg daily with instructions to monitor BP and call in 1 week with update. No calls documented until today. Questioned regarding BP readings, somewhat vague- states something needs to be done reports BP on 10/30-98/63; 10/31-79/47, 11/01-91/51 States he still has swelling F/u appointment made with Gayle Arce NP for 11/03/21 at 11 am Agrees to this date/time. documented in this encounter Plan of Treatment Upcoming Encounters Date Type Department Care Team (Late st Contact Info) Description 04/25/2024 11:[address] [facility] [address] [place] [address] Ti Bonilla MD [address] [place] [phone] 05/23/2024 3:30 PM LINING FELLER [facility] [address] [place] [address] Jyoti Escobar MD [address] [place], [place] [address] documented as of this encounter Visit Diagnoses Not on filedocumented in this encounter Care Teams Small Parts Shaper Operator Relationship Specialty Start Date End Date Vernon Mercedes MD [address] [place] [address] PCP - General FAMILY PRACTICE 10/27/15 12/02/21 Evaristo Allan MD [address] [place] [address] [place] Criminal Defense Attorney CARDIOVASCULAR DISEASE 08/19/16 Raul Santana MD [address] [place], [place] [address] [address] CLINICAL CARDIAC ELECTROPHYSIOLOGY 06/16/17 Danny Blackwell MD [address] [place] [address] ORTHOPAEDIC SURGERY 05/01/19 Gayle Arce, DEPUTY CHIEF EXECUTIVE, MOBILE SECURITY ARCHITECT-C [address] [facility] [address] [place] [phone] NURSE PRACTITIONER 03/03/20 documented as of this encounter
--- OUTSIDE RECORDS SUMMARY | 2024-04-23 04:24 | XMS_ITS | Encounter Summary ---
Author Organization [facility] Address [address] [place] [address]. [place] [address] [place] [address] Care Team Providers Care Tread Tuber Machine Operator Name Role Phone Vernon Mercedes MD Primary Care Provider [phone] Evaristo Allan MD Unavailable Unavailabl Raul Duran MD Unavailable Unavailabl Danny Lopse MD Unavailable [phone] Gayle Arce APRN, SLEEVE SETTER-C Unavailable Reason for Visit * Reason Onset Date Comments Advice 09/07/2021 Still feels like his going in and out of a-fib Problem 09/09/2021 Edema Encounter Details Date Type Department Care Team (Late st Contact Info) Description 09/07/2021 Telephone [facility] [address] [place] [address] Evaristo Allan MD Advice (Still feels like his going in and out of a-fib); Problem (Edema) Social History Tobacco Use Types Packs/Day Years [...] 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 No / Unsure 09/08/2021 10:00 AM CDT documented as of this encounter [...] Progress Notes * Nalini Orlando RN - 09/09/2021 2:18 PM CDT Returned call to patient. States in the am his swelling is down but then he swells during the day. States he is trying to elevate his feet when sitting and discussed limiting sodium intake. States he continues to feel that he goes in /out of rhythm. Made aware Dr. Allan is out of the office until 09/15 Suggested if he is concerned with the swelling he should see his PCP while Dr. Allan is out. Made aware Dr. Allan will review EKG and above information upon his return. Expressed understanding * Emma Zepeda - 09/09/2021 2:02 PM CDT Mrs. Zelaya stated they received the voice mail but wanted to let Dr. Allan know that his feet are still really swollen. Call Mrs. Zelaya at [phone]. * Nalini Orlando RN - 09/08/2021 10:52 AM CDT Received EKG done at [facility]- noted SR HR 79 Phoned patient, message left with above information * Nalini Orlando RN - 09/07/2021 2:09 PM CDT Returned call to patient. Was scheduled to have a EKG today States he will go tomorrow to obtain the EKG Continues to take lasix 20 mg- 2 tablets daily, states Dr. Allan wanted to know if I still had swelling States he does have swelling, no worse than previously, able to feel when he has irregular rhythm Agrees to obtain EKG tomorrow, continue current dose of lasix Instructed to limit sodium intake Aware that Dr. Allan is out this week. * Su Clay - 09/07/2021 12:41 PM CDT Pt called. Had cardioversion on Tuesday, but still feels like he is going in and out of a-fib andhis legs are still swollen. Please advise. documented in this encounter Plan of Treatment Upcoming Encounters Date Type Department Care Team (Late st Contact Info) Description 04/25/2024 11:00 AM IMPREGNATOR CARBON PRODUCTS Appointment [facility] [address] [place] [address] Ti Bonilla MD [address] [place] [phone] 05/23/2024 3:30 PM IMPREGNATOR [employer]BON PRODUCTS Office Visit [facility] [address] [place] [address] Jyoti Escobar MD [address] [place], [place] [address] documented as of this encounter Visit Diagnoses Not on filedocumented in this encounter Care Teams Tread Tuber Machine Operator Relationship Specialty Start Date End Date Vernon Mercedes MD [address] [place] [address] PCP - General FAMILY PRACTICE 10/27/15 12/02/21 Evaristo Allan MD [address] [place], [place] [address] [address] [place] Binder Selector CARDIOVASCULAR DISEASE 08/19/16 Raul Santana MD [facility] [place] [address] CLINICAL CARDIAC ELECTROPHYSIOLOGY 06/16/17 Danny Blackwell MD [address] [place] [address] ORTHOPAEDIC SURGERY 05/01/19 Gayle Arce APRN, SLEEVE SETTER-C [address] [facility] [address] [place] [phone] NURSE PRACTITIONER 03/03/20 documented as of this encounter
--- OUTSIDE RECORDS SUMMARY | 2024-04-23 04:24 | XMS_ITS | Encounter Summary ---
Author Organization [facility] Address [address] [place] [address]. [place], [place] [address] [place] [address] Care Team Providers Care Dietary Aid Name Role Phone Evaristo Allan MD Unavailable Unavailabl Raul Duran MD Unavailable Unavailabl Danny Lopes MD Unavailable [phone] Gayle Arce APRN, BELLMAKER-C Unavailable [phone] Ti Bonilla MD Primary Care Provider [phone] Encounter Details Date Type Department Care Team (Latest Contact Info) Description 12/03/2021 Travel Social History Tobacco Use Types Packs/Day [...] suspected to have Coronavirus/COVID-19? No / Unsure 12/03/2021 8:01 AM CDT documented as of this encounter [...] Date Author Status No 11/17/2021 3:30 PM Nick Mora RN Active documented in this encounter Plan of Treatment Upcoming Encounters Date Type Department Care Team (Late st Contact Info) Description 04/25/2024 11:00 AM COLLAR SETTER OVERLOCK Appointment [facility] [address] [place] [address] [place] [address] Ti Bonilla MD [address] [place] [phone] 05/23/2024 3:30 PM COLLAR SETTER OVERLOCK Office Visit [facility] [place] [address] Jyoti Escobar MD [address] [place] [phone] documented as of this encounter Visit Diagnoses Not on filedocumented in this encounter Care Teams Dietary Aid Relationship Specialty Start Date End Date Ti Bonilla MD [address] [place] [phone] PCP - General FAMILY PRACTICE 12/03/21 Evaristo Allan MD [place] Sensor Technician CARDIOVASCULAR DISEASE 08/19/16 Raul Santana MD CLINICAL CARDIAC ELECTROPHYSIOLOGY 06/16/17 Danny Blackwell MD [address] [place] [address] ORTHOPAEDIC SURGERY 05/01/19 Gayle Arce, BARBARA, BELLMAKER-C [address] [facility] [address] [place] [phone] NURSE PRACTITIONER 03/03/20 documented as of this encounter
--- OUTSIDE RECORDS SUMMARY | 2024-04-23 04:24 | XMS_ITS | Encounter Summary ---
Author Organization [facility] Address [address] [place] [address]. 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 Not on [...] Assessment Author Status Yes 10/15/2019 4:47 PM MIKKIT Kaylyn Cohen RN Active * Do you [...] Rodriguez RN Active documented in this encounter Plan of Treatment Upcoming Encounters Date Type Department Care Team (Late st Contact Info) Description 04/25/2024 11:00 AM TELEGRAPHER AGENT Appointment [facility] [address] [place] [address] Ti Bonilla MD [address] [place] [phone] 05/23/2024 3:30 PM TELEGRAPHER AGENT Office Visit [facility] [address] [place] [address] Jyoti Escobar MD [address] [place] [address] documented as of this encounter Visit Diagnoses Not on filedocumented in this encounter Care Teams Training Analyst Relationship Specialty Start Date End Date Vernon Mercedes MD [address] [place] [address] PCP - General FAMILY PRACTICE 10/27/15 12/02/21 Evaristo Allan MD [address] [place] [address] [place] Media Consultant CARDIOVASCULAR DISEASE 08/19/16 Raul Santana MD [address] [place] [address] CLINICAL CARDIAC ELECTROPHYSIOLOGY 06/16/17 Danny Blackwell MD [address] [place] [address] ORTHOPAEDIC SURGERY 05/01/19 Gayle Arce, BARBARA, CUSTOMER PROJECT MANAGER-C [address] [facility] [address] [place] [address] NURSE PRACTITIONER 03/03/20 documented as of this encounter
--- OUTSIDE RECORDS SUMMARY | 2024-04-23 04:24 | XMS_ITS | Encounter Summary ---
Author Organization [facility] Address [address] [place] [address]. [place], [place] [address] [place] [address] Care Team Providers Care Manufacturing Worker Name Role Phone Evaristo Allan MD Unavailable Unavailabl e Eve Santana MD Unavailable Unavailabl e Danny Blackwell MD Unavailable [phone] Gayle Arce APRN, VEST TAILOR-C Unavailable Ti Zamora MD Primary Care Provider Reason for Visit * Reason Comments Blisters Patient is here for blisters on bilateral feet. Patient states that they notice one on the right foot on Tuesday and then some on the left foot on Tuesday. Blood sugars are in normal range. No change in household items. Patient did start a new medication Celebrex that we prescribed. /sw Encounter Details Date Type Department Care Team (Late st Contact Info) Description 12/08/2021 11:00 AM CDT Office Visit [facility] [place] [address] [place] [address], [place] [address] Eve Beth, CAROLYN [address] [place] [phone] Blisters (Patient is here for blisters on bilateral feet. Patient states that they notice one on the right foot on Tuesday and then some on the left foot on Tuesday. Blood sugars are in normal range. No change in household items. Patient did start a new medication Celebrex that we prescribed. 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 No / Unsure 12/08/2021 10:41 AM CDT documented as of this encounter Last Filed Vital Signs Vital Sign Reading Time Taken Comments Blood Pressure 144/86 12/08/2021 10:55 AM CDT Pulse 80 12/08/2021 10:55 AM CDT Temperature - - Respiratory Rate - - Oxygen Saturation 95% 12/08/2021 10:55 AM CDT Inhaled Oxygen Concentration - - [...] documented in this encounter Progress Notes * Eve Beth, DPM - 12/08/2021 11:00 AM CDT Reason for Visit: Blisters (Patient is here for blisters on bilateral feet. Patient states that they notice one on the right foot on Tuesday and then some on the left foot on Tuesday. Blood sugars are in normal range.No change in household items. Patient did start a new medication Celebrex that we prescribed. /sw) History of Present Illness: Evaristo Zelaya is a 61-year-old male here for follow-up for blisters on both feet on dorsal aspect he is uncertain of the cause he does have new shoes but stated that the blister started before the new shoes. He is diabetic and was somewhat concerned. He was told to come to the office today. ROS: ROS Filed Vitals: 12/08/21 1055 BP: (!) 144/86 Pulse: 80 SpO2: 95% PHYSICAL EXAM I have performed a thorough and complete physical exam of the foot and ankle area bilateral; to include vascular, neurologic, dermatologic, and musculoskeletal evaluation. No changes from last officenotes there is however several's small bulla that are now dried on the dorsal aspect left foot in a linear pattern and almost appears as though he was scratched or something was dripped on the foot. There is a larger lesion on the right foot and the dorsal and slightly medial aspect some mild erythema surrounding but again it is dry centrally with no purulence no odor no fluid. Diagnoses/Impression: 1. Bulla cephALEXin (KEFLEX) 500 MG capsule 2. Arthralgia of right foot 3. Arthralgia of right ankle 4. Primary osteoarthritis of both feet Recommendations and Plan: Patient asked if I think may be the Celebrex and anything to do with this and I do not think that would be an issue I see no reason why there would be linear skin irritations like him noting here. More likely he had something either in his shoe or sock or perhaps hot water or something of this nature that would cause the skin irritations. As a precaution were going to use Keflex 500 mg and a new prescription was sent today. Watch area closely for any further sign of infection and will reevaluate in 2 weeks. He can continue on the Celebrex as he feels it is helping some of his arthralgia. EVE BETH Referring Provider: Ti Zamora MD PCP: TI ZAMORA MD documented in this encounter Plan of Treatment Upcoming Encounters Date Type Department Care Team (Late st Contact Info) Description 04/25/2024 11:00 AM CHECKOUT OPERATOR Appointment [facility] [address] [place] [address] [place] [address] Ti Zamora MD [address] [place] [phone] 05/23/2024 3:30 PM CHECKOUT OPERATOR Office Visit [facility] [place] [phone] Jyoti Escobar MD [address] [place] [phone] documented as of this encounter Visit Diagnoses Diagnosis Bulla- Primary Other specified disorder of skin Arthralgia of right foot Pain in joint, ankle and foot Arthralgia of right ankle Pain in joint, ankle and foot Primary osteoarthritis of both feet documented in this encounter Care Teams Manufacturing Worker Relationship Specialty Start Date End Date Ti Zamora MD [address] [place] [phone] PCP - General FAMILY PRACTICE 12/03/21 Evaristo Allan MD [place] Subgrade Roller Operator CARDIOVASCULAR DISEASE 08/19/16 Eve Santana MD CLINICAL CARDIAC ELECTROPHYSIOLOGY 06/16/17 Danny Blackwell MD [address] [place] [address] ORTHOPAEDIC SURGERY 05/01/19 Gayle Arce APRN, VEST TAILOR-C [address] [phone] NURSE PRACTITIONER 03/03/20 documented as of this encounter
--- OUTSIDE RECORDS SUMMARY | 2024-04-23 04:24 | XMS_ITS | Encounter Summary ---
Author Organization [facility] Address [address] [place] [address]. [place] [address] [place] [address] Care Team Providers Care Artificial Marble Worker Name Role Phone Vernon Mercedes MD Primary Care Provider [phone] Evaristo Allan MD Unavailable UnavailRaul Suresh MD Unavailable Unavailabl Danny Lopes MD Unavailable [phone] Gayle Arce APRN, SLEEP LAB TECHNOLOGIST-C Unavailable Reason for Visit * Reason Onset Date Comments Information 09/03/2021 Encounter Details Date Type Department Care Team (Late st Contact Info) Description 09/03/2021 Telephone [facility] [address] [place] [address] Evaristo Allan MD Information Social History Tobacco Use Types Packs/Day Years [...] 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 Allan: needs EKG on Tuesday at [facility]; decrease metoprolol succinate 100 mg BID Phoned patient, message left with above information Requested that he call back with any questions. documented in this encounter Plan of Treatment Upcoming Encounters Date Type Department Care Team (Late st Contact Info) Description 04/25/2024 11:00 AM HARNESS RIGGER Appointment [facility] [address] [place] [address] [place] [address] Ti Bonilla MD [address] [place] [phone] 05/23/2024 3:30 PM HARNESS RIGGER Office Visit [facility] [address] [place] [address] Jyoti Escobar MD [address] [place], [place] [address] documented as of this encounter Visit Diagnoses Not on filedocumented in this encounter Care Teams Artificial Marble Worker Relationship Specialty Start Date End Date Vernon Mercedes MD [address] [place] [address] PCP - General FAMILY PRACTICE 10/27/15 12/02/21 Evaristo Allan MD [facility] [place] [address] [place] Vp Of Digital Marketing CARDIOVASCULAR DISEASE 08/19/16 Raul Santana MD [address] [place] [address] CLINICAL CARDIAC ELECTROPHYSIOLOGY 06/16/17 Danny Blackwell MD [address] [place] [address] ORTHOPAEDIC SURGERY 05/01/19 Gayle Arce APRN, SLEEP LAB TECHNOLOGIST-C [address] [facility] [address] [place] [phone] NURSE PRACTITIONER 03/03/20 documented as of this encounter
--- OUTSIDE RECORDS SUMMARY | 2024-04-23 04:24 | XMS_ITS | Encounter Summary ---
Author Organization [facility] Address [address] [place] [address]. [place], [place] [address] [place] [address] Care Team Providers Care Cash On Delivery Clerk Name Role Phone Vernon Mercedes MD Primary Care Provider [phone] Evaristo Allan MD Unavailable UnavailRaul Suresh MD Unavailable Unavailabl Danny Lopes MD Unavailable [phone] Gayle Arce APRN LINE OUT WORKER-C Unavailable Encounter Details Date Type Department Care Team (Late st Contact Info) Description 09/03/2021 Orders Only [facility] [address] [address] Danny Blackwell MD [address] [place], [place] [phone] Social History Tobacco Use Types Packs/Day Years [...] 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 Not on [...] st Contact Info) Description 04/25/2024 11:00 AM ROUGH ROUNDER MACHINE Appointment [facility] [address] [place] [address] Ti Bonilla MD [address] [place] [phone] 05/23/2024 3:30 PM ROUGH ROUNDER MACHINE Office Visit [facility] [address] [place] [phone] Jyoti Escobar MD [address] [place] [phone] documented as of this encounter Visit Diagnoses Diagnosis Right foot pain- Primary Pain in limb documented in this encounter Care Teams Cash On Delivery Clerk Relationship Specialty Start Date End Date Vernon Mercedes MD [address] [place] [address] PCP - General FAMILY PRACTICE 10/27/15 12/02/21 Evaristo Allan MD [address] [place] [address] [place] Truck Despatcher CARDIOVASCULAR DISEASE 08/19/16 Raul Santana MD [address] [place] [address] CLINICAL CARDIAC ELECTROPHYSIOLOGY 06/16/17 Danny Blackwell MD [address] [place] [address] ORTHOPAEDIC SURGERY 05/01/19 Gayle Arce, APARTMENT LOCATOR, LINE OUT WORKER-C [address] [facility] [address] [place] [address] NURSE PRACTITIONER 03/03/20 documented as of this encounter
--- OUTSIDE RECORDS SUMMARY | 2024-04-23 04:24 | XMS_ITS | Encounter Summary ---
Author Organization [facility] Address [address] [place] [address]. [place], [place] [address] [place] [address] Care Team Providers Care Crusher Screen Repairer Name Role Phone Vernon Mercedes MD Primary Care Provider [phone] Elza Allan MD Unavailable UnavailRaul Suresh MD Unavailable Unavailabl Danny Lopes MD Unavailable [phone] Gayle Arce APRN, COMPUTER SCIENTIST-C Unavailable Encounter Details Date Type Department Care Team (Latest Contact Info) Description 08/27/2021 12:41 PM CDT - 08/27/2021 11:59 PM CDT Hospital Encounter [facility] [address] [facility] [place] [address] Elza Allan MD Discharge Disposition: Home or [...] 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 12/26/2023 carbidopa-levodo pa 25-100 MG tablet Take 1 tablet by mouth 3 (three) times daily. 01/03/2020 09/02/2021 famotidine 40 MG tablet Take 1 tablet (40 mg total) by mouth 2 (two) times daily. 12/06/2020 12/26/2023 furosemide 20 MG tablet Take 20 mg by mouth daily. 01/28/2017 08/28/2021 furosemide 20 MG tablet Take 2 tablets (40 mg total) by mouth daily. 60 tablet 6 08/28/2021 03/03/2022 gabapentin 300 MG capsule Take 300 mg by mouth 3 (three) times daily. 02/06/2018 06/30/2023 LEVEMIR 100 UNIT/ML injection Inject 44 Units into the skin nightly at bedtime. 12/29/2017 06/30/2023 LEVEMIR FLEXTOUCH 100 UNIT/ML flextouch PEN 05/01/2021 11/03/2021 METOPROLOL SUCCINATE ER 100 MG 24 hr tablet TAKE ONE TABLET BY MOUTH TWICE A DAY 60 tablet 1 08/10/2021 08/28/2021 metoprolol succinate ER 100 MG 24 hr [...] st Contact Info) Description 04/25/2024 11:00 AM LONG WINDER TENDER Appointment [facility] [address] [facility] [address] Ti Bonilla MD [address] [place] [phone] 05/23/2024 3:30 PM LONG WINDER TENDER Office Visit [facility] [address] [place] [address] Jyoti Escobar MD [address] [place] [address] documented as of this encounter Procedures Procedure Name Priority Date/Time Associated Diagnosis Comments ECG 12-LEAD Routine 08/27/2021 12:53 PM CDT Atrial fibrillation, unspecified type (CMS/HCC HHS/HCC) documented in this encounter Results * ECG 12 lead (08/27/2021 12:53 PM CDT) 08/27/2021 12:5 3 PM CDT Narrative [facility] - 08/28/2021 12:22 AM CDT ? [facility] ?[address] [place], [place] ??[address] ? Test Date: ?2021-08-27 Pat Name: ? ELZA MCKEON ? Department: ?? 3 ? Room: ? Gender: ? Male ? 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 : ?1960 ? Requested By: ELZA ALLAN Order Number: [id number] ? Reading : ?? Kenzie Soto ? Measurements Intervals ?[place] ? Rate: ? 97 ? P: ?24 [place]: ? 111 ?QRS: ?55 QRSD: ? 126 ?T: ?35 QT: ? 425 ? QTc: ?541 ? Interpretive Statements SINUS RHYTHM WITH SHORT [place] INTERVAL RIGHT BUNDLE BRANCH BLOCK Procedure Note Kenzie Soto MD - 08/28/[address] 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 documented in this encounter Care Teams Crusher Screen Repairer Relationship Specialty Start Date End Date Vernon Mercedes MD [address] [place] [address] PCP - General FAMILY PRACTICE 10/27/15 12/02/21 Elza Allan MD [facility] [place] [address] [place] Portal Architect CARDIOVASCULAR DISEASE 08/19/16 Raul Santana MD [address] [place] [address] CLINICAL CARDIAC ELECTROPHYSIOLOGY 06/16/17 Danny Blackwell MD [address] [place] [address] ORTHOPAEDIC SURGERY 05/01/19 Gayle Arce APRN, COMPUTER SCIENTIST-C [address] [facility] [address] [place] [address] NURSE PRACTITIONER 03/03/20 documented as of this encounter
--- OUTSIDE RECORDS SUMMARY | 2024-04-23 04:24 | XMS_ITS | Encounter Summary ---
Author Organization [facility] Address [address] [place] [address]. [place], [place] [id number] [place] [address] Care Team Providers Care Automatic Profile Sander Operator Name Role Phone Ton Mercedes MD Primary Care Provider [phone] Elza Allan MD Unavailable Unavailabl Raul Duran MD Unavailable Unavailabl e Danny Blackwell MD Unavailable [phone] Gayle Arce APRN FACULTY RESEARCH ASSISTANT-C Unavailable Reason for Referral * Imaging (Routine) - Closed Specialty Diagnoses / Procedures Referred By Charito ledbetter Referred To Contact RADIOLOGY Diagnoses Atrial flutter ([facility] HHS/HCC) Procedures XA AFLUTTER ABLATION Joshua Yin MD [address] [place] [address] Phone: tel: fax: Referral ID Status Reason Start Date Expiration Date Visits Re quested Visits Authorized [id number] Closed 11/04/2021 12/05/2022 1 1 Reason for Visit * Auth/Cert Specialty Diagnoses / Procedures Referred By Charito ledbetter Referred To Contact Diagnoses Atrial flutter ([facility] H[facility]/HCC) Procedures XA AFLUTTER ABLATION Joshua Yin MD [address] [place] [address] Phone: tel: fax: Referral ID Status Reason Start Date Expiration Date Visits Re quested Visits Authorized [id number] 1 1 Encounter Details Date Type Department Care Team (Latest Contact Info) Description 11/17/2021 6:07 AM CDT - 11/18/2021 1:37 PM CDT Hospital Encounter [facility] [address] [place] [address] Joshua Yin MD [address] [place] [address] Discharge Disposition: Home or Self Care (Routine [...] 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 No / Unsure 11/17/2021 6:05 AM CDT documented as of this encounter Last Filed Vital Signs Vital Sign Reading Time Taken Comments Blood Pressure 196/98 11/18/2021 8:00 AM CDT Pulse 112 11/18/2021 8:00 AM CDT Temperature 36.7 ??C (98.1 ??F) 11/18/2021 8:00 AM CD T Respiratory Rate 16 11/18/2021 8:00 AM CDT Oxygen Saturation 94% 11/18/2021 8:00 AM CDT Inhaled Oxygen Concentration - - Weight 135.8 kg (299 lb 6.2 oz) 11/18/2021 5:00 AM CDT Height 180.3 cm (5' 10.98 ) 11/17/2021 7:11 AM C DT Body Mass Index 41.77 11/17/2021 7:11 AM CDT documented in this encounter Functional Status * Question Answer Date of Assessment Author Status Do you have serious difficulty walking or climbing stairs? No 11/17/2021 3:30 PM Angela Mora RN A ctive * Question Answer Date of Assessment Author Status Do you have difficulty dressing or bathing? No 11/17/2021 3:30 PM Angela Mora RN Active Because of a physical, mental, or emotional condition, do you have difficulty doing errands alone such as visiting a doctor's office or shopping? No 11/17/2021 3:30 PM Angela Mora RN Ac tive * RETIRED Are you deaf or do [...] difficulty concentrating, remembering, or making decisions? No 11/17/2021 3:30 PM Angela Mora RN Active * Because of a physical, mental, or emotional condition, do you have serious difficulty concentrating, remembering, or making decisions? Answer Entry Date Author Status No 11/17/2021 3:30 PM Angela Mora RN Active documented in this encounter Discharge Summaries * Joshua Yin MD - 11/18/2021 6:52 AM CDT Images from the original note were not included. Discharge Summary PATIENT NAME: Elza Mckeon : 1960 REFERRING PROVIDER: Joshua Yin MD PCP: TON MERCEDES MD Admit Date: 11/17/2021 6:07 AM Discharge Date: 11/18/2021 Discharge Physician: JOSHUA YIN MD Discharge Diagnosis 1. Recurrent persistent left atrial flutter. S/P Catheter ablation on 11/17/2021. 2. Paroxysmal atrial fibrillation with history of catheter ablation 05/19/[address] Santana and redo ablation on 11/17/2021. 3. Chronic anticoagulation with Pradaxa for stroke prevention. 4. Hypertension. 5. Diabetes. 6. No known history of coronary artery disease, stroke, cardiomyopathy. Normal stress test and LVEFof 55-60% in 2020. Hospital Course Mr. Mccabe is a very pleasant 61-year-old male with past medical history including atrial fibrillation, pulmonary vein isolation May 19, 2016, coronary artery disease with history of CERTIFIED ALCOHOL COUNSELOR PCI, palpitations. S/P Catheter ablation of atrial fibrillation by Dr. Santana in May 2016. ?? Most recently he developed persistent atrial flutter and underwent DCCV by Dr. Allan. However, atrial flutter recurred and was significantly symptomatic. On 11/17/21, the patient underwent catheter ablation of left atrial flutter. Reisolation of the pulmonary veins was also performed at that time. The patient tolerated the procedure well without complications. The patient is being discharged today on her same home medications, and will be followed in clinic in 2 months and earlier as needed. He is currently off antiarrhythmic drugs. 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 Discharge Medications Medication List CONTINUE taking these medications Morning Afternoon Evening Bedtime As Needed TRUEplus Pen [place] 31G X 8 MM [facility] Generic drug: Insulin Pen Needle ASK your doctor about these medications Morning Afternoon Evening Bedtime As Needed amitriptyline 100 MG tablet Commonly known as: ELAVIL Take 100 mg by mouth 2 (two) times daily. Last time this was given: 100 mg on November 17, 2021 8:33 PM aspirin EC 81 MG tablet Commonly known as: ECOTRIN Take 81 mg by mouth daily. atorvastatin 40 MG tablet Commonly known as: LIPITOR Take 20 mg by mouth nightly at bedtime. Last time this was given: 20 mg on November 17, 2021 8:33 PM famotidine 40 MG tablet Commonly known as: PEPCID Take 40 mg by mouth 2 (two) times daily. Last time this was given: 40 mg on November 17, 2021 8:33 PM furosemide 20 MG tablet Commonly known as: LASIX Take 2 tablets (40 mg total) by mouth daily. Last time this was given: 40 mg on November 17, 2021 1:22 PM gabapentin 300 MG capsule Commonly known as: NEURONTIN Take 300 mg by mouth 3 (three) times daily. Last time this was given: 300 mg on November 17, 2021 8:33 PM Levemir 100 UNIT/ML injection Inject 44 Units into the skin nightly at bedtime. Generic drug: insulin detemir metFORMIN 850 MG tablet Commonly known as: GLUCOPHAGE Take 850 mg by mouth 2 (two) times daily with meals. Last time this was given: 850 mg on November 17, 2021 5:30 PM metoprolol succinate ER 100 MG 24 hr tablet Commonly known as: TOPROL-XL Take 1 tablet (100 mg total) by mouth daily. nitroglycerin 0.4 MG SL tablet Commonly known as: NITROSTAT Place 1 tablet (0.4 mg total) under the tongue every 5 (five) minutes as needed for Chest Pain. NovoLOG FlexPen 100 UNIT/ML injection (PEN) Inject 50 Units as directed 3 (three) times daily before meals. Generic drug: insulin aspart Pradaxa 150 MG Caps TAKE ONE CAPSULE BY MOUTH TWICE A DAY Last time this was given: 150 mg on November 17, 2021 8:34 PM Generic drug: dabigatran tamsulosin 0.4 MG Caps Commonly known as: FLOMAX Take 0.4 mg by mouth daily. traMADol 50 MG tablet Commonly known as: ULTRAM Take 1 tablet by mouth 3 (three) times a day. Signed JOSHUA YIN MD documented in this encounter Discharge Instructions * Attachments The following attachments cannot be sent through Care Everywhere. * Atrial Flutter Discharge Instructions (Maltese) documented in this encounter Medications at Time [...] daily. 12/26/2023 documented as of this encounter H&P Notes * Joshua Yin MD - 11/17/2021 6:39 AM CDT HISTORY AND PHYSICAL INTERVAL NOTE: I have reviewed Elza Mckeon History & Physical which was performed within the past 30 days. After examining Elza Bonny Mckeon, no change has occurred in the patient's condition since the H&P was completed. Informed Consent Discussion: Potential benefits, risks, and side effects of the patient's procedure/surgery; the likelihood of the patient achieving his or her goals; and any potential problems that might occur during recuperation were discussed with the patient/family/personal client relations representative. Reasonable alternatives to the patient's proposed procedure/surgery including benefits, risks, and side effects related to the alternatives and the risks related to not receiving the proposed care were also discussed with the patient/family/personal client relations representative. Questions were answered and the patient/family/personal client relations representative verbalized understanding and desires to proceed. Source Note - Alfredo Gonsales PA-C - 11/03/2021 11:15 AM [...] 2016, coronary artery disease with history of CERTIFIED ALCOHOL COUNSELOR PCI, palpitations. Last seen by Myah Handley NP in October 2018. Previously established with Dr. Santana for atrial fibrillation management and pulmonary vein [...] TRUEPLUS PEN NEEDLES 31G X 8 MM [facility] , Disp: , Rfl: Allergies Allergies Allergen [...] CATHETERIZATION 01/04/2018 occluded prox RCA w/well developed geru-uu-oczte collaterals lvef 55-60% ??? CARDIAC CATHETERIZATION 11/13/2018 ??? FRACTURE SURGERY ??? 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 HERNIA REPAIR ??? JOINT REPLACEMENT ??? KNEE ARTHROPLASTY Bilateral ??? LITHOTRIPSY ??? XA ABLATION 05/19/2016 ??? XA CORONARY INTERVENTION 03/24/2018 CERTIFIED ALCOHOL COUNSELOR PCI-mid RCA Social History Tobacco Use ??? [...] Behavior normal. Thought Content: Thought content normal. I, JOSHUA YIN MD, performed a Consultation and History & Physical examination of the patient and discussed the management with the Advanced Practice Provider (GERRI). I reviewed the GERRI's note and agree with the findings and plan of care, except as I have documented. Plan of care developed under my direct supervision. Signed ALFREDO GONSALES PA-C 11/03/2021 documented in this encounter Procedure Notes * Joshua Yin MD - 11/17/2021 10:25 AM CDT Images from the original note were not included. Cardiac Electrophysiology Procedure Note Date of Procedure: 11/17/2021 Livestock Farmworker: Joshua Yin MD Pre-Procedure Diagnosis: 1. Atrial fibrillation. 2. Atrial flutter. Procedures performed: ??? Comprehensive electrophysiologic evaluation including transseptal catheterizations, insertion and repositioning of multiple electrode catheters with induction or attempted induction of an arrhythmia including left or right atrial pacing/recording when necessary, right ventricular pacing/recording when necessary, and His bundle recording when necessary with intracardiac catheter ablation of atrial fibrillation by pulmonary vein isolation [[id number]] ??? Additional linear intracardiac catheter ablation of the left atrium for treatment of atrial fibrillation remaining after completion of pulmonary vein isolation [+ [id number]] ??? Intracardiac catheter ablation of a discrete mechanism of arrhythmia (left atrial flutter) which is distinct from the primary ablated mechanism, including repeat diagnostic maneuvers, to treat a spontaneous or induced arrhythmia [+ 96883] ??? Intracardiac echocardiography during therapeutic/diagnostic intervention, including imaging supervision and interpretation [+ 21399-48] ??? Left atrial pacing and recording from coronary sinus or left atrium [+ 46986-19] ??? Programmed stimulation and pacing after intravenous drug infusion [+ 50647-59] ??? Moderate (conscious) sedation. Post-Procedure Diagnosis: 1. S/P catheter ablation for left atrial tachycardia. 2. S/P catheter ablation for atrial fibrillation. Catheters/Sheaths Used: 1. Decapolar 6-Fr decapolar catheter was introduced through a 7.5-Fr sheath under fluoroscopic guidance via the left femoral vein into the coronary sinus. 2. AcuNav ICE catheter was introduced through a 9-Fr sheath under fluoroscopic guidance via the left femoral vein into the right atrium. 3. Multipolar Halo7-EP catheter was advanced under fluoroscopic guidance via the left femoral vein for pacing and recording at the tricuspid annulus. 4. Mini-basket catheter was introduced through a long deflectable sheath from right femoral vein into the left atrium through a transseptal puncture. 5. A 3.5-mm irrigated-tip mapping/ablation catheter was introduced through a long deflectable sheath from the right femoral vein into the left atrium through a transseptal puncture. Medications Administered: Epinephrine 2 mcg/min IV infusion. Heparin IV to maintain ACT >300seconds. Protamine IV. Sedation: I performed moderate (conscious) sedation (using Versed IV, Precedex IV, and Fentanyl IV) for a period longer than 30 minutes. I supervised and directed Nate FIGUEROA who assisted in monitoring patient'slevel of consciousness and physiological status and assisted in maintaining airway throughout the pr ocedure. Baseline Intervals: Rhythm: AT. A-A: 216 ms. V-V: 752 ms. HV: 53 ms. QRS: 116 ms. QT: 348 ms. Arrhythmias Induced: Left atrial flutter was present at baseline. Atrial fibrillation was easily inducible. Mapping and Catheter Ablation of Atrial Flutter: [...] and ACT was monitored throughout the procedure. At baseline, left atrial macroreentrant tachycardia (atypical atrial flutter) was present. Activation was performed using the [place] catheter and ii4bia 3-D mapping system. The AT was mapped to a reentrant circuit around utilizing two gaps at the anteroinferior and posterosuperior aspects of the RSPV. Ablation targeting the gap successfully eliminated the tachycardia. Complete line of block was verified with pacing with and without epinephrine. Differential atrial pacing confirmed the presence of bidirectional block across the CTI secondary to prior ablation. Mapping and Catheter Ablation of Atrial Fibrillation: A deflectable-tip mapping/ablation catheter was maneuvered into position along the perimeter of each of the pulmonary vein after accessing the left atrium (see above). 3-D electroanatomic mapping wasperformed using ii4bia electroanatomical mapping system to build a 3-D model of the left atrium, and used to facilitate mapping, and guide RF ablation and repositioning of catheters. Pulmonary veinpotentials were mapped using a mini-basket catheter. At baseline, electrical reconnection of all 4 PVs. All other veins were electrically isolated. RF lesions were delivered circumferentially around the antrum of each of the 4 PVs. Complete electrical isolation was achieved in all of the pulmonary veins, as confirmed by absence/dissociation of pulmonary vein potentials during atrial fibrillation using a circular catheter. Each application was set to power of 30-50 W, targeting 40-45 ??C, was continued for 3-10 sec. Remapping after 20 minutes reconfirmed electrical isolation of all PVs. Intracardiac Echo (ICE) Interpretation Report: 1. Transseptal atrial puncture was performed under ICE guidance. 2. Transseptal sheaths/catheters were visualized in the left atrium and monitored during the ablation procedure with ICE. 3. No pericardial effusion was observed before or after the procedure. Post -operative Diagnosis Summary: 1. Left atrial macroreentrant tachycardia and was mapped to a reentrant circuit around utilizing two gaps at the anteroinferior and posterosuperior aspects of the RSPV. Ablation targeting the gap successfully eliminated the tachycardia. 2. Catheter ablation of atrial fibrillation was performed with circumferential antral pulmonary vein electrical isolation. Estimated Blood Loss: Minimal. Specimens Removed: None. Complications: None. Joshua Yin M.D. 11/17/2021 documented in this encounter OR Notes * Post-Sedation Assessment - Joshua Yin MD - 11/17/2021 10:22 AM CDT Post-Sedation Assessment Vitals Vital signs stable at post-procedure: Yes Post-Sedation Exam: Post-Sedation Airway: Airway Patent Heart: Regular Rate/Rhythm Lungs: Lungs Clear to Ascultation Other Physical Findings: None Pain Score: 0/10 Pain Scale Used: Number Scale Hydration: Tolerating PO Fluids Mental Status AVPU: A: Alert Sedation Complications: None Signed by: JOSHUA YIN MD * Pre-Sedation Assessment - Joshua Yin MD - 11/17/2021 8:09 AM CDT Images from the original note were not included. Pre-sedation Evaluation Planned Procedure: Catheter ablation Indication: Atrial flutter Livestock Farmworker: JOSHUA YIN MD Medical History: Patient Active Problem List Diagnosis ??? Essential hypertension ??? Paroxysmal atrial fibrillation ([facility]) ??? 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 Obstructive sleep apnea ??? Hyperlipidemia ??? Diabetes ([facility]) ??? Coronary artery disease ??? Chronic total occlusion of [place] coronary artery ??? Cardiovascular stress test abnormal ??? Arthritis of knee ??? Derangement of medial meniscus, left ??? Heartburn ??? Knee pain ??? Mechanical complication of internal orthopedic device, implant or graft, initial encounter ([facility]) ??? Patella-femoral syndrome ??? Pes anserine bursitis ??? Recurrent ventral incisional hernia ??? Abdominal pain ??? Failure of total knee replacement, initial encounter ([facility]) ??? S/P coronary artery stent placement ??? 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 Status post revision of total replacement of right knee ??? Neck pain ??? Microhematuria Past Surgical History: Procedure Laterality Date ??? CARDIAC CATHETERIZATION 01/04/2018 occluded prox RCA w/well developed ldac-nc-eebpx collaterals lvef 55-60% ??? CARDIAC CATHETERIZATION 11/13/2018 ??? FRACTURE SURGERY ??? 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 HERNIA REPAIR ??? JOINT REPLACEMENT ??? KNEE ARTHROPLASTY Bilateral ??? LITHOTRIPSY ??? XA ABLATION 05/19/2016 ??? XA CORONARY INTERVENTION 03/24/2018 CERTIFIED ALCOHOL COUNSELOR PCI-mid RCA No current facility-administered medications on file prior to encounter. Current Outpatient Medications on File Prior to Encounter Medication Sig Dispense Refill ??? amitriptyline 100 MG tablet Take 100 mg by mouth 2 (two) times daily. ??? aspirin EC 81 MG tablet Take 81 mg by mouth daily. 100 tablet 0 ??? atorvastatin 40 MG tablet Take 20 mg by mouth nightly at bedtime. ??? famotidine 40 MG tablet Take 40 mg by mouth 2 (two) times daily. ??? furosemide 20 MG tablet Take 2 tablets (40 mg total) by mouth daily. 60 tablet 6 ??? gabapentin 300 MG capsule Take 300 mg by mouth 3 (three) times daily. ??? LEVEMIR 100 UNIT/ML injection Inject 44 Units into the skin nightly at bedtime. ??? metFORMIN 850 MG tablet Take 850 mg by mouth 2 (two) times daily with meals. ??? metoprolol succinate ER (TOPROL-XL) 100 MG 24 hr tablet Take 1 tablet (100 mg total) by mouth daily. 30 tablet 5 ??? NOVOLOG FLEXPEN 100 UNIT/ML injection (PEN) Inject 50 Units as directed 3 (three) times daily before meals. ??? PRADAXA 150 MG Cap TAKE ONE CAPSULE BY MOUTH TWICE A DAY 180 capsule 1 ??? tamsulosin 0.4 MG Cap Take 0.4 mg by mouth daily. ??? traMADol 50 MG tablet Take 1 tablet by mouth 3 (three) times a day. ??? nitroglycerin 0.[address] 1 tablet (0.4 mg total) under the tongue every 5 (five) minutes as needed for Chest Pain. 25 tablet 1 ??? TRUEPLUS PEN NEEDLES 31G X 8 MM [facility] Social History Socioeconomic History ??? Marital status: Spouse name: Not on file ??? Number of children: 1 ??? Years of education: Not on file ??? Highest education level: Not on file Occupational History ??? 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 Smoking status: Never Smoker ??? Smokeless tobacco: Never Used Vaping Use ??? Vaping Use: Never used Substance and Sexual Activity ??? Alcohol use: Yes Comment: social ??? Drug use: No ??? Sexual activity: Not on file Other Topics Concern ??? Exercise Yes Comment: walking ??? Special Diet No ??? Caffeine Concern Yes Social History Narrative ??? Not on file Social Determinants of Health Financial Resource Strain: Not on file Food Insecurity: Not on file Transportation Needs: Not on file Physical Activity: Not on file Stress: Not on file Social Connections: Not on file Intimate Partner Violence: Not on file Housing Stability: Not on file Allergies Allergen Reactions ??? Doxycycline Other (see comment) Blisters in the mouth ? ? Tetracyclines & Related Other (see comment) Blisters in the mouth HGB (G/DL) Date Value 11/14/2021 11.3 (L) HCT (%) Date Value 11/14/2021 37.1 PLT (x10'3/uL) Date Value 11/14/2021 262 POTASSIUM (MMOL/L) Date Value 11/14/2021 4.2 CREATININE S/P/B (MG/DL) Date Value 11/14/2021 1.11 INR (no units) Date Value 05/20/2016 1.2 (H) INR, WHOLE BLOOD (no units) Date Value 11/09/2018 1.20 Changes in medical history recently?: No History sedation complication: No. Written consent was given by for today's procedure. The patient has been NPO for >8 hours. Physical Exam: Lungs: Clear to auscultation. Heart: IRRR Airway/Mallampati: Class 3 ASA: Class 3 Acceptable for IV sedation: Yes JOSHUA YIN MD 11/17/2021 documented in this encounter Plan of Treatment Upcoming Encounters Date Type Department Care Team (Late st Contact Info) Description 04/25/2024 11:00 AM COMMERCIAL MAKEUP ARTIST Appointment [facility] [address] [place] [address] Ti Bonilla MD [address] [place] [phone] 05/23/2024 3:30 PM COMMERCIAL MAKEUP ARTIST Office Visit [facility] [place] [address] Jyoti Escobar MD [address] [place] [address] Pending Results Name Type Priority Associated Diagnoses Date /Time XA AFLUTTER ABLATION Cardiac Cath Routine Atrial flutter ([facility]) 11/17/2021 10:31 AM CDT Scheduled Orders Name Type Priority Associated Diagnoses Orde r Schedule XA AFLUTTER ABLATION Cardiac Cath Routine Atrial flutter ([facility]) Once for 1 Occurrences starting 11/17/2021 until 11/17/2021 documented as of this encounter Procedures Procedure Name Priority Date/Time Associated Diagnosis Comments POCT GLUCOSE - RAMOS DOCKED DEVICE Routine 11/18/2021 11:33 AM CDT ECG 12-LEAD Routine 11/18/2021 6:21 AM CDT PROTHROMBIN TIME, VENOUS Routine 11/18/2021 6:21 AM CDT BASIC METABOLIC PANEL Routine 11/18/2021 6:21 AM CDT CBC W/DIFF AUTOMATED Routine 11/18/2021 6:21 AM CDT MAGNESIUM Routine 11/18/2021 6:21 AM CDT POCT GLUCOSE - RAMOS DOCKED DEVICE Routine 11/18/2021 6:16 AM CDT XR CHEST PA+LAT Routine 11/18/2021 6:10 AM CDT POCT GLUCOSE - RAMOS DOCKED DEVICE Routine 11/18/2021 2:49 AM CDT POCT GLUCOSE - RAMOS DOCKED DEVICE Routine 11/18/2021 12:17 AM CDT POCT GLUCOSE - RAMOS DOCKED DEVICE Routine 11/17/2021 9:31 PM CDT POCT GLUCOSE - RAMOS DOCKED DEVICE Routine 11/17/2021 4:24 PM CDT ECG 12-LEAD Routine 11/17/2021 12:29 PM CDT HC ACTIVATED CLOTTING TIME Routine 11/17/2021 9:40 AM CDT HC ACTIVATED CLOTTING TIME Routine 11/17/2021 9:02 AM CDT TYPE & SCREEN Routine 11/17/2021 7:02 AM CDT ECG 12-LEAD Routine 11/17/2021 6:54 AM CDT ORDER FRESH FROZEN PLASMA Routine 11/17/2021 6:46 AM CDT documented in this encounter Results * (ABNORMAL) POCT glucose (11/18/2021 11:33 AM CDT) [facility] GLUCOSE POC 221(H) 70 - 109 11/18/2021 11:54 AM CDT [facility] 11/18/2021 11:3 3 AM CDT Joshua Yin MD POCT ORDERABLES - DEVICE Final R esult [facility] [address] [place] [address], [id number] * ECG 12 lead - in AM (11/18/2021 6:21 AM CDT) 11/18/2021 6:21 AM CDT Narrative [facility] - 11/18/2021 12:32 PM CDT ? [facility] [place] ??[address] ? Test Date: ?2021-11-18 Pat Name: ? ELZA MCKEON ? Department: ?? 1 ? Room: ? 628AA Gender: ? Male ? 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 Sc : ?1960 ? Requested By: ZIAD RODNEY Order Number: [id number] ? Reading MD: ?? Jessy [place] ? Measurements Intervals ?[place] ? Rate: ? 107 ?P: ?58 OR: ? 174 ?QRS: ?62 QRSD: ? 113 ?T: ?15 QT: ? 354 ? QTc: ?473 ? Interpretive Statements SINUS TACHYCARDIA RIGHT BUNDLE BRANCH BLOCK ABNORMAL RHYTHM ECG Procedure Note Jessy Rivera MD - 11/18/2021 [address] [place] [address] Test Date: 2021-11-18 Pat Name: [facility] Department: 1 Room: [facility] Gender: Male Hydrographic Surveyor: Lauro : 1960 Requested By: JOSHUA YIN Order Number: [id number] Reading MD: Jessy Rivera Measurements Intervals [place] Rate: 107 P: 58 OR: 174 QRS: 62 QRSD: 113 T: 15 QT: 354 QTc: 473 Interpretive Statements SINUS TACHYCARDIA RIGHT BUNDLE BRANCH BLOCK ABNORMAL RHYTHM ECG us Joshua Yin MD ECG ORDERABLES Final Result Performing Organization Address [facility] de Phone Number [facility] * MAGNESIUM (11/18/2021 6:21 AM CDT) MAGNESIUM 2.1 1.6 - 2.6 MG/DL 11/18/2021 7:35 AM CDT [facility] 11/18/2021 6:21 AM CDT us Joshua Yin MD LABORATORY Final Result Performing Organization Address [facility] de Phone Number [facility] [address] [place] [address], [phone] * (ABNORMAL) BASIC METABOLIC PANEL (11/18/2021 6:21 AM CDT) SODIUM S/P/B 140 136 - 145 MMOL/L 11/18/2021 7:35 AM CDT [facility] POTASSIUM S/P/B 4.2 3.5 - 5.1 MMOL/L 11/18/2021 7:35 AM CDT [facility] CHLORIDE S/P/B 104 98 - 107 MMOL/L 11/18/2021 7:35 AM CDT [facility] CO2 30.0 21.0 - 32.0 MMOL/L 11/18/2021 7:35 AM CDT [facility] GLUCOSE 135(H) 74 - 106 MG/DL 11/18/2021 7:35 AM CDT [facility] BUN 13 7 - 18 MG/DL 11/18/2021 7:35 AM CDT [facility] CREATININE S/P/B 0.83 0.70 - 1.30 MG/DL 11/18/2021 7:35 AM CDT [facility] CALCIUM S/P/B 8.8 8.5 - 10.1 MG/DL 11/18/2021 7:35 AM CDT [facility] ANION GAP 6.0 5.0 - 15.0 MMOL/L 11/18/2021 7:35 AM CDT [facility] OSMOLALITY (CALC) 292 MOSM/KG 022 7:35 AM T [facility] Comment:REFERENCE RANGE NOT ESTABLISHED GFR ESTIMATE >90 >90 ML/MIN/1. 73 M2 11/18/2021 7:35 AM T [facility] GFR NOTES GFR REFERENCE S: 11/18/2021 7:35 AM T [facility] Comment: THE ESTIMATED GFR IS [...] ml/min/1.73 m2 G5,KIDNEY FAILURE: <15 ml/min/1.73 m2 11/18/2021 6:21 AM CDT us Joshua Yin MD LABORATORY Final Result Performing Organization Address [facility] Co de Phone Number [facility] [address] [place] [address], [place] [phone] * (ABNORMAL) PROTIME/INR, VENOUS (11/18/2021 6:21 AM CDT) PROTIME 13.7(H) 9.4 - 12.5 SEC 11/18/2021 7:25 AM CDT [facility] INR 1.2(H) 0.8 - 1.1 11/18/2021 7:25 AM CDT [facility] 11/18/2021 6:21 AM CDT us Joshua Yin MD LABORATORY Final Result Performing Organization Address [facility] Co de Phone Number [facility] [address] [place] [address], [place] [phone] * (ABNORMAL) CBC W/DIFF AUTOMATED (11/18/2021 6:21 AM CDT) WBC 9.0 4.0 - 10.8 x10'3/uL 11/18/2021 7:01 AM CDT [facility] RBC 4.21(L) 4.50 - 6.10 x10'6/uL 11/18/2021 7:01 AM CDT [facility] HGB 11.0(L) 13.0 - 18.0 G/DL 11/18/2021 7:01 AM CDT [facility] HCT 37.0 37.0 - 52.0 % 11/18/2021 7:01 AM CDT [facility] MCV 87.9 78.0 - 100.0 FL 11/18/2021 7:01 AM CDT [facility] MCH 26.1(L) 27.0 - 31.0 PG 11/18/2021 7:01 AM CDT [facility] MCHC 29.7(L) 33.0 - 36.0 G/DL 11/18/2021 7:01 AM T [facility] RDW 16.1(H) 11.5 - 14.5 % 11/18/2021 7:01 AM CDT [facility] PLT 252 150 - 350 x10'3/uL 11/18/2021 7:01 AM CDT [facility] MPV 10.9(H) 7.4 - 10.4 FL 11/18/2021 7:01 AM CDT [facility] ABS. NEUTROPHILS 5.97 1.60 - 8.30 x10'3/uL 11/18/2021 7:01 AM CDT [facility] ABS. LYMPHOCYTES 1.67 0.80 - 4.70 x10'3/uL 11/18/2021 7:01 AM CDT [facility] ABS. MONOCYTES 1.05 0.00 - 1.50 x10'3/uL 11/18/2021 7:01 AM CDT [facility] ABS. EOSINOPHILS 0.24 0.00 - 0.40 x10'3/uL 11/18/2021 7:01 AM CDT [facility] ABS. BASOPHILS 0.06 0.00 - 0.20 x10'3/uL 11/18/2021 7:01 AM CDT [facility] ABS. IMMATURE GRANULOCYTES 0.05(H) 0.00 - 0.03 x10'3/uL 11/18/2021 7:01 AM CDT [facility] ABS. NUCLEATED RBC'S 0.00 0.0 x10'3/uL 11/18/2021 7:01 AM CDT [facility] 11/18/2021 6:21 AM CDT us Joshua Yin MD LABORATORY Final Result Performing Organization Address [facility] Co de Phone Number [facility] [address] [place] [address], [place] [phone] * (ABNORMAL) POCT glucose (11/18/2021 6:16 AM CDT) GLUCOSE POC 149(H) 70 - 109 11/18/2021 6:25 AM CDT [facility] 11/18/2021 6:16 AM CDT Joshua Yin MD POCT ORDERABLES - DEVICE Final R esult Performing Organization Address [facility] de Phone Number [facility] [address] [place] [address], [place] [phone] * XR CHEST PA+LAT (11/18/2021 6:10 AM CDT) Anatomical Region Laterality Modality Chest Radiographic Shannan ging 11/18/2021 6:19 AM CDT Impressions 11/18/2021 6:20 AM CDT IMPRESSION: ======== 1. ??Medial right lower lobe infiltrate or atelectasis. ??Follow-up to resolution recommended. 2. ??Small pleural effusions Referred By: JOSHUA YIN Interpreted By: Roberth Salinas MD, 11/18/2021 6:19 AM Narrative 11/18/2021 6:20 AM CDT Examination: Chest x-ray 2 view Exam Date/Time: 11/18/2021 6:00 AM Reason For Exam: ??Indication: Post EPS/Ablation ?? Essential hypotension. ??Atrial fibrillation, post ablation Comparison: Chest radiographs 04/30/2021 Technique: PA and lateral views of the chest were obtained. Findings: Heart size enlarged. ??Breathing motion artifact on lateral view. ??Small pleural effusions on lateral view. ??Medial right lung base infiltrates or atelectasis. ??Upper lungs clear. ??Pulmonary vascularity within normal limits. ??No pneumothorax. ======== Procedure Note Roberth Salinas MD - 11/18/2021 Examination: Chest x-ray 2 view Exam Date/Time: 11/18/2021 6:00 AM Reason For Exam: Indication: Post EPS/Ablation Essential hypotension. Atrial fibrillation, post ablation Comparison: Chest radiographs 04/30/2021 Technique: PA and lateral views of the chest were obtained. Findings: Heart size enlarged. Breathing motion artifact on lateral view.Small pleural effusions on lateral view. Medial right lung baseinfiltrates or atelectasis. Upper lungs clear. Pulmonary vascularitywithin normal limits. No pneumothorax. ======== IMPRESSION: ======== 1. Medial right lower lobe infiltrate or atelectasis. Follow-up toresolution recommended. 2. Small pleural effusions Referred By: JOSHUA YIN Interpreted By: Roberth Salinas MD, 11/18/2021 6:19 AM Joshua Yin MD GENERAL IMAGING Final Result * POCT glucose (11/18/2021 2:49 AM CDT) GLUCOSE POC 92 70 - 109 11/18/2021 2:50 AM CDT [facility] 11/18/2021 2:49 AM CDT us Joshua Yin MD POCT ORDERABLES - DEVICE Final R esult Performing Organization Address [facility]/ZIP Co de Phone Number [facility] [address] [place] [address], [place] [phone] * (ABNORMAL) POCT glucose (11/18/2021 12:17 AM CDT) GLUCOSE POC 62(L) 70 - 109 11/18/2021 12:19 AM CDT [facility] 11/18/2021 12:1 7 AM CDT us Joshua Yin MD POCT ORDERABLES - DEVICE Final R esult Performing Organization Address [facility]/ZIP Co de Phone Number [facility] [address] [place] [address], [place] [phone] * POCT glucose (11/17/2021 9:31 PM CDT) GLUCOSE POC 81 70 - 109 11/17/2021 9:41 PM CDT [facility] 11/17/2021 9:31 PM CDT us Joshua Yin MD POCT ORDERABLES - DEVICE Final R esult Performing Organization Address [facility]/ZIP Co de Phone Number [facility] [address] [place] [address], [place] [phone] * (ABNORMAL) POCT glucose (11/17/2021 4:24 PM CDT) GLUCOSE POC 174(H) 70 - 109 11/17/2021 4:39 PM CDT [facility] 11/17/2021 4:24 PM CDT Joshua Yin MD POCT ORDERABLES - DEVICE Final R esult [facility] [address] [place] [address], [phone] * ECG 12 lead - Today (11/17/2021 12:29 PM CDT) 11/17/2021 12:2 9 PM CDT Narrative [facility] - 11/17/2021 5:56 PM CDT ? [facility] ?[address], [place] ??[address] ? Test Date: ?2021-11-17 Pat Name: ? ELZA MCKEON ? Department: ?? 1 ? Room: ? 628 Gender: ? Male ? 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 Sc : ?1960 ? Requested By: JOSHUA YIN Order Number: [id number] ? Jose Antonio OSMAN: ?? Jessy Rivera ? Measurements Intervals ?[place] ? Rate: ? 92 ? P: ?54 OR: ? 208 ?QRS: ?56 QRSD: ? 117 ?T: ?22 QT: ? 379 ? QTc: ?469 ? 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: Lauro : 1960 Requested By: JOSHUA YIN Order Number: [id number] Reading MD: Jessy Rivera Measurements Intervals [place] Rate: 92 P: 54 OR: 208 QRS: 56 QRSD: 117 T: 22 QT: 379 QTc: 469 Interpretive Statements SINUS RHYTHM WITH OCCASIONAL SUPRAVENTRICULAR PREMATURE COMPLEXES MODERATE INTRAVENTRICULAR CONDUCTION DELAY us Joshua Yin MD ECG ORDERABLES Final Result Performing Organization Address [facility] Co de Phone Number [facility] * (ABNORMAL) ACT (HMT OR LHMT) (11/17/2021 9:40 AM CDT) ACTIVATED CLOTTING TIME (ACT HMT OR LMT) 323(H) 74 - 137 SEC 11/17/2021 9:44 AM CDT [facility] 11/17/2021 9:40 AM CDT us Joshua Yin MD LAB BLOOD ORDERABLES Final Resul t Performing Organization Address [facility] de Phone Number [facility] [address] [place] [address], [place] [phone] * (ABNORMAL) ACT (HMT OR LHMT) (11/17/2021 9:02 AM CDT) ACTIVATED CLOTTING TIME (ACT HMT OR LMT) 364(H) 74 - 137 SEC 11/17/2021 9:10 AM CDT [facility] 11/17/2021 9:02 AM CDT us Joshua Yin MD LAB BLOOD ORDERABLES Final Resul t Performing Organization Address [facility] de Phone Number [facility] [address] [place] [address], [place] [phone] * TYPE & SCREEN (11/17/2021 7:02 AM CDT) UNITS ORDERED 4 11/17/2021 7:22 AM CDT [facility] ABO/RH B POSITIVE 11/17/2021 8:08 AM CDT [facility] ANTIBODY SCREEN NEGATIVE 11/17/2021 8:08 AM CDT [facility] SAMPLE EXPIRATION 11/20/2021,2 359 11/17/2021 7:23 AM CDT [facility] 11/17/2021 7:02 AM CDT Joshua Yin MD BLOOD BANK TEST ORDERABLES Final Result [facility] [address] [place] [address], [phone] * ECG 12 lead (11/17/2021 6:54 AM CDT) 11/17/2021 6:54 AM CDT Narrative [facility] - 11/17/2021 10:03 AM CDT ? [facility] ?[address], [place] ??[address] ? Test Date: ?2021-11-17 Pat Name: ? ELZA MCKEON ? Department: ?? 1 ? Room: ? [id number] Gender: ? Male ? 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 : ?1960 ? Requested By: ZIAD RODNEY Order Number: [id number] ? Reading MD: ?? Jessy Rivera ? Measurements Intervals ?[place] ? Rate: ? 80 ? P: ? OR: ? 0 ?QRS: ?62 QRSD: ? 119 ?T: ?30 QT: ? 426 ? QTc: ?493 ? 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: : 1960 Requested By: JOSHUA YIN Order Number: [id number] Jose Antonio MD: Jessy Rivera Measurements Intervals [place] Rate: 80 P: OR: 0 QRS: 62 QRSD: 119 T: 30 QT: 426 QTc: 493 Interpretive Statements A-Flutter w/ Varied AV Block A-Rate LOW QRS VOLTAGE IN PRECORDIAL LEADS INCOMPLETE RIGHT BUNDLE BRANCH BLOCK Joshua Yin MD ECG ORDERABLES Final Result Performing Organization Address [facility] Co de Phone Number [facility] * ORDER FRESH FROZEN PLASMA, 4 Units (11/17/2021 6:46 AM CDT) UNITS ORDERED 4 11/17/2021 6:46 AM CDT [facility] 11/17/2021 6:46 AM CDT Joshua Yin MD BLOOD BANK PRODUCT ORDERABLES Fi nal Result Performing Organization Address [facility] Co de Phone Number [facility] [address] [place] [address], [phone] documented in this encounter Visit Diagnoses Diagnosis Atrial flutter ([facility]) Atrial flutter documented in this encounter Administered Medications Inactive Administered Medications - up to 3 most recent administrations Medication Order MAR Action Action Date Dose Rate Site acetaminophen (TYLENOL) tablet 650 mg 650 mg, Oral, Every 6 hours PRN, Mild pain (Scale 1 - 3), Starting on Tue11/17/21 at 1123, Until Tue11/18/21 at 1542, Maximum dose of acetaminophen is 4000 mg from all sources in 24 hours., Post-Op amitriptyline (ELAVIL) tablet 100 mg 100 mg, Oral, 2 times daily, First dose on Tue11/17/21 at 2100, Until Discontinued Given 11/18/2021 10:05 AM CDT 100 mg Given 11/17/2021 8:33 PM CDT 100 mg aspirin EC (ECOTRIN) tablet 81 mg 81 mg, Oral, Daily, First dose on Tue11/18/21 at 0900, Until Discontinued, Do not break, chew, or crush. Given 11/18/2021 10:05 AM CDT 81 mg atorvastatin (LIPITOR) tablet 20 mg 20 mg, Oral, Nightly at bedtime, First dose on Tue11/17/21 at 2100, Until Discontinued Given 11/17/2021 8:33 PM CDT 20 mg chlorhexidine (PERIDEX) 0.12 % solution 15 mL 15 mL, Mouth/Throat, PRN, Prior to surgery, 1 dose, Starting on Tue11/17/21 at 0645, Until Tue11/18/21 at 1542, Patient to perform oral care first. Swish/Gargle in mouth for 30 seconds, and then discard, prior to going to surgery/ If ventilated use saturated swab to clean oral cavity., Pre-Op dabigatran (PRADAXA) capsule 150 mg 150 mg, Oral, 2 times daily, First dose on Tue11/17/21 at 2100, Until Discontinued Given 11/18/2021 11:30 AM CDT 150 mg Given 11/17/2021 8:34 PM CDT 150 mg famotidine (PEPCID) tablet 40 mg 40 mg, Oral, 2 times daily, First dose on Tue11/17/21 at 2100, Until Discontinued Given 11/18/2021 10:06 AM CDT 40 mg Given 11/17/2021 8:33 PM CDT 40 mg furosemide (LASIX) tablet 40 mg 40 mg, Oral, Daily, First dose on Tue11/17/21 at 1300, Until Discontinued Given 11/18/2021 10:06 AM CDT 40 mg Given 11/17/2021 1:22 PM CDT 40 mg gabapentin (NEURONTIN) capsule 300 mg 300 mg, Oral, 3 times daily, First dose on Tue11/17/21 at 1600, Until Discontinued Given 11/18/2021 10:06 AM CDT 300 mg Given 11/17/2021 8:33 PM CDT 300 mg Given 11/17/2021 5:30 PM CDT 300 mg HYDROcodone-acetaminophen (NORCO) 10-325 MG tablet 1 tablet 1 tablet, Oral, Every 6 hours PRN, Moderate pain (Scale 4 - 7), Starting on Tue11/17/21 at 1123, Until Tue11/18/21 at 1542, Maximum dose of acetaminophen is 4000 mg from all sources in 24 hours., Post-Op Given 11/17/2021 5:34 PM CDT 1 tablet insulin glargine (LANTUS) injection 44 Units 44 Units, Subcutaneous, Nightly at bedtime, First dose on Tue11/17/21 at 2100, Until Discontinued Given 11/17/2021 8:33 PM CDT 44 Units Left Lower Abdomen insulin lispro (HUMALOG) injection 50 Units 50 Units, Subcutaneous, 3 times daily before meals, First dose on Tue11/17/21 at 1100, Until Discontinued, For sliding scale, activate Sliding Scale Insulin order set Given 11/17/2021 5:31 PM CDT 50 Units Right Arm Given 11/17/2021 1:22 PM CDT 50 Units Ri ght Arm metFORMIN (GLUCOPHAGE) tablet 850 mg 850 mg, Oral, 2 times daily with meals, First dose on Tue11/17/21 at 1700, Until Discontinued Given 11/18/2021 10:14 AM CDT 850 mg Given 11/17/2021 5:30 PM CDT 850 mg metoprolol succinate ER (TOPROL-XL) 24 hr tablet 100 mg 100 mg, Oral, Daily, First dose on Tue11/18/21 at 0900, Until Discontinued, May be split in half along the tablet score line; do not chew or crush. Given 11/18/2021 10:06 AM CDT 100 mg ondansetron (ZOFRAN) injection 4 mg 4 mg, Intravenous, Every 8 hours PRN, Nausea, Vomiting, Starting on Tue11/17/21 at 1123, Until Tue11/18/21 at 1542, IV push over 2-5 minutes., Post-Op tamsulosin (FLOMAX) capsule 0.4 mg 0.4 mg, Oral, Daily, First dose on Tue11/18/21 at 0900, Until Discontinued Given 11/18/2021 10:06 AM CDT 0.4 mg documented in this encounter Active and Recently Administered Medications Times are shown in CDT. Scheduled Medication Order 11/16/2021 11/17/2021 11/18/2021 amitriptyline (ELAVIL) tablet 100 mg 100 mg, Oral, 2 times daily, First dose on Tue11/17/21 at 2100, Until Discontinued 2032 (Given - Provider: Melanie Granado RN) 1005 (Given - Provider: Angela Mancuso RN) aspirin EC (ECOTRIN) tablet 81 mg 81 mg, Oral, Daily, First dose on Tue11/18/21 at 0900, Until Discontinued, Do not break, chew, or crush. 1005 (Given - Provid er: Angela Mancuso RN) atorvastatin (LIPITOR) tablet 20 mg 20 mg, Oral, Nightly at bedtime, First dose on Tue11/17/21 at 2100, Until Discontinued 2032 (Given - Provider: Melanie Granado RN) dabigatran (PRADAXA) capsule 150 mg 150 mg, Oral, 2 times daily, First dose on Tue11/17/21 at 2100, Until Discontinued 2033 (Given - Provider: Melanie Granado RN) 1130 (Given - Provider: Angela Mancuso RN) famotidine (PEPCID) tablet 40 mg 40 mg, Oral, 2 times daily, First dose on Tue11/17/21 at 2100, Until Discontinued 2032 (Given - Provider: Melanie Granado RN) 1006 (Given - Provider: Angela Mancuso RN) furosemide (LASIX) tablet 40 mg 40 mg, Oral, Daily, First dose on Tue11/17/21 at 1300, Until Discontinued 132 (Given - Provider: Angela Mancuso RN) 1006 (Given - Provider: Angela Mancuso RN) gabapentin (NEURONTIN) capsule 300 mg 300 mg, Oral, 3 times daily, First dose on Tue11/17/21 at 1600, Until Discontinued 173 (Given - Provider: Angela Mancuso RN)2032 (Given - Provider: Melanie Granado RN) 1006 (Given - Provider: Angela Mancuso RN) insulin glargine (LANTUS) injection 44 Units 44 Units, Subcutaneous, Nightly at bedtime, First dose on Tue11/17/21 at 2100, Until Discontinued 2032 (Given - Provider: Melanie Granado RN) insulin lispro (HUMALOG) injection 50 Units 50 Units, Subcutaneous, 3 times daily before meals, First dose on Tue11/17/21 at 1100, Until Discontinued, For sliding scale, activate Sliding Scale Insulin order set 1322 (Given - Provider: Angela Mancuso RN)1731 (Given - Provider: Angela Mancuso RN) 1007 (Not Given - Provider: Angela Mancuso RN - Reason: Order parameters not met)1100 (Canceled Entry - Provider: Automatic Discharge Provider - Comment: Automatically canceled at discontinue of medication order) metFORMIN (GLUCOPHAGE) tablet 850 mg 850 mg, Oral, 2 times daily with meals, First dose on Tue11/17/21 at 1700, Until Discontinued 1730 (Given - Provider: Angela Mancuso RN) 1014 (Given - Provider: Angela Mancuso RN) metoprolol succinate ER (TOPROL-XL) 24 hr tablet 100 mg 100 mg, Oral, Daily, First dose on Tue11/18/21 at 0900, Until Discontinued, May be split in half along the tablet score line; do not chew or crush. 1006 (Given - Provid er: Angela Mancuso RN) tamsulosin (FLOMAX) capsule 0.4 mg 0.4 mg, Oral, Daily, First dose on Tue11/18/21 at 0900, Until Discontinued 1006 (Given - Provid er: Angela Mancuso RN) Continuous Medication Order 11/16/2021 11/17/2021 11/18/2021 sodium chloride 0.9% infusion at 10 mL/hr, Intravenous, Continuous, Starting on Tue11/17/21 at 0715, Until Tue11/18/21 at 0714, Infuse at TKO rate, Pre-Op 1326 (Not Given - Provider: Angela Mancuso RN - Reason: Other) PRN Medication Order 11/16/2021 11/17/2021 11/18/2021 acetaminophen (TYLENOL) tablet 650 mg 650 mg, Oral, Every 6 hours PRN, Mild pain (Scale 1 - 3), Starting on Tue11/17/21 at 1123, Until Tue11/18/21 at 1542, Maximum dose of acetaminophen is 4000 mg from all sources in 24 hours., Post-Op chlorhexidine (PERIDEX) 0.12 % solution 15 mL 15 mL, Mouth/Throat, PRN, Prior to surgery, 1 dose, Starting on Tue11/17/21 at 0645, Until Tue11/18/21 at 1542, Patient to perform oral care first. Swish/Gargle in mouth for 30 seconds, and then discard, prior to going to surgery/ If ventilated use saturated swab to clean oral cavity., Pre-Op HYDROcodone-acetaminophen (NORCO) 10-325 MG tablet 1 tablet 1 tablet, Oral, Every 6 hours PRN, Moderate pain (Scale 4 - 7), Starting on Tue11/17/21 at 1123, Until Tue11/18/21 at 1542, Maximum dose of acetaminophen is 4000 mg from all sources in 24 hours., Post-Op 1734 (Given - Provider: Angela Mancuso RN) ondansetron (ZOFRAN) injection 4 mg 4 mg, Intravenous, Every 8 hours PRN, Nausea, Vomiting, Starting on Tue11/17/21 at 1123, Until Tue11/18/21 at 1542, IV push over 2-5 minutes., Post-Op traMADol (ULTRAM) tablet 50 mg 50 mg, Oral, Every 6 hours PRN, Moderate pain (Scale 4 - 7), Starting on Tue11/17/21 at 1021, Until Tue11/18/21 at 1542 documented in this encounter Care Teams Automatic Profile Sander Operator Relationship Specialty Start Date End [place] [address] PCP - General FAMILY PRACTICE 10/27/15 12/02/21 [place] [phone] [place] Can Handler CARDIOVASCULAR DISEASE 08/19/16 Raul Santana MD [address] [place] [address] CLINICAL CARDIAC ELECTROPHYSIOLOGY 06/16/17 Danny Blackwell MD [address] [place] [address] ORTHOPAEDIC SURGERY 05/01/19 Gayle Arce, BARBARA, FACULTY RESEARCH ASSISTANT-C [address] [facility] [address] [place] [address] NURSE PRACTITIONER 03/03/20 documented as of this encounter
--- OUTSIDE RECORDS SUMMARY | 2024-04-23 04:24 | XMS_ITS | Encounter Summary ---
Author Organization [facility] Address [address] [place] [address]. 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 No / Unsure 11/14/2021 8:17 AM CDT documented as of this encounter [...] st Contact Info) Description 04/25/2024 11:00 AM COCKTAIL SERVER Appointment [facility] [address] [place] [address] Ti Bonilla MD [address] [place] [phone] 05/23/2024 3:30 PM COCKTAIL SERVER Office Visit [place] [facility] [address] [place] [phone] Jyoti Escobar MD [address] [place] [address] documented as of this encounter Visit Diagnoses Not on filedocumented in this encounter Additional Health Concerns Infection Onset Date Last Indicated Resolved Time COVID-19 Rule Out 11/14/2021 11/14/2021 11/14/2021 6:17 PM CDT documented as of this encounter Care Teams Nutrition Services Assistant Relationship Specialty Start Date End Date Vernon Mercedes MD [address] [place] [address] PCP - General FAMILY PRACTICE 10/27/15 12/02/21 Evaristo Allan MD [address] [place] [address] [place] Pattern Lease Inspector CARDIOVASCULAR DISEASE 08/19/16 Raul Santana MD [address] [place] [address] CLINICAL CARDIAC ELECTROPHYSIOLOGY 06/16/17 Danny Blackwell MD [address] [place] [address] ORTHOPAEDIC SURGERY 05/01/19 Gayle Arce, BARBARA, DESULPHURING OPERATOR-C [address] [facility] [address] [place] [address] NURSE PRACTITIONER 03/03/20 documented as of this encounter
--- OUTSIDE RECORDS SUMMARY | 2024-04-23 04:24 | XMS_ITS | Encounter Summary ---
Author Organization [facility] Address [address] [place] [address]. [place], [place] [address] [place] [address] Care Team Providers Care Side Gluer Name Role Phone Vernon Mercedes MD Primary Care Provider [phone] Evaristo Allan MD Unavailable UnavailRaul Suresh MD Unavailable Unavailabl Danny Lopes MD Unavailable [phone] Gayle Arce APRN, OIL RIG ROUGHNECK-C Unavailable [phone] Encounter Details Date Type Department Care Team (Late st Contact Info) Description 06/02/2021 Orders Only [facility] [address] [place] [address] Vernon Mercedes MD [address] [place] [address] Social History Tobacco Use Types Packs/Day Years [...] 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 No / Unsure 06/02/2021 10:06 AM WORLD GEOGRAPHY TEACHER documented as of this encounter Functional Status [...] st Contact Info) Description 04/25/2024 11:00 AM WORLD GEOGRAPHY TEACHER Appointment [facility] [address] [place] [address] Ti Bonilla MD [address] [place] [phone] 05/23/2024 3:30 PM WORLD GEOGRAPHY TEACHER Office Visit [facility] [address] [place] [phone] Jyoti Escobar MD [address] [place] [phone] documented as of this encounter Results * (ABNORMAL) COMPREHENSIVE METABOLIC PANEL (06/02/2021 10:19 AM WORLD GEOGRAPHY TEACHER) [facility] Signature SODIUM S/P/B 141 136 - 145 MMOL/L 06/02/2021 10:42 AM [facility] POTASSIUM S/P/B 4.3 3.5 - 5.1 MMOL/L 06/02/2021 10:42 AM [facility] CHLORIDE S/P/B 103 98 - 107 MMOL/L 06/02/2021 10:42 AM [facility] CO2 31.5 21.0 - 32.0 MMOL/L 06/02/2021 10:42 AM [facility] GLUCOSE 152(H) 70 - 99 MG/DL 06/02/2021 10:42 AM [facility] Comment: FASTING GLUCOSE 100 TO 125 MG/DL IS CONSISTENT WITH IMPAIRED FASTING GLUCOSE. FASTING GLUCOSE >125 MG/DL IS CONSISTENT WITH DIABETES. RANDOM GLUCOSE >200 MG/DL WITH HYPERGLYCEMIC SYMPTOMS IS CONSISTENT WITH DIABETES. PER ADA GUIDELINES BUN 18 6 - 24 MG/DL 06/02/2021 10:42 AM [facility] CREATININE S/P/B 1.21 0.70 - 1.30 MG/DL 06/02/2021 10:42 AM [facility] CALCIUM S/P/B 8.4 8.4 - 10.5 MG/DL 06/02/2021 10:42 AM [facility] BILIRUBIN TOTAL S/P/B 0.4 0.2 - 1.0 MG/DL 06/02/2021 10:42 AM [facility] Comment: THIS ASSAY IS NOT RECOMMENDED FOR PATIENTS UNDERGOING TREATMENT WITH ELTROMBOPAG DUE TO THE POTENTIAL FOR FALSELY ELEVATED RESULTS. ALKALINE PHOSPHATASE S/P/B 77 45 - 115 U/L 06/02/2021 10:42 AM [facility] AST 21 15 - 37 U/L 06/02/2021 10:42 AM [facility] ALT 37 16 - 63 U/L 06/02/2021 10:42 AM [facility] TOTAL PROTEIN S/P/B 7.2 6.4 - 8.2 G/DL 06/02/2021 10:42 AM [facility] ALBUMIN S/P/B 3.1(L) 3.4 - 5.0 G/DL 06/02/2021 10:42 AM WORLD GEOGRAPHY TEACHER [facility] ANION GAP 6.5 5.0 - 15.0 MMOL/L 06/02/2021 10:42 AM WORLD GEOGRAPHY TEACHER [facility] OSMOLALITY (CALC) 297 MOSM/KG 022 10:42 AM WORLD GEOGRAPHY TEACHER [facility] Comment:REFERENCE RANGE NOT ESTABLISHED EGFR NON-AFR. AMER. 64(L) >89 ML/MIN/1. 73 M2 06/02/2021 10:42 AM WORLD GEOGRAPHY TEACHER [facility] EGFR AFR. AMER. 74(L) >89 ML/MIN/1. 73 M2 06/02/2021 10:42 AM WORLD GEOGRAPHY TEACHER [facility] GFR NOTES GFR REFERENCE S: 06/02/2021 10:42 AM [facility] Comment: THE ESTIMATED GFR IS CALCULATED USING THE 2009 CKD-EPI EQUATION. THE FOLLOWING CATEGORIES FOR GRADING RENAL FUNCTION ARE RECOMMENDED BY THE INTERNATIONAL SOCIETY OF NEPHROLOGY (KDIGO 2012 CLINICAL PRACTICE GUIDELINE). G1,NORMAL OR HIGH: >89 ml/min/1.73 m2 G2,MILDLY DECREASED: 60-89 ml/min/1.73 m2 G3A,MILDLY TO MODERATELY DECREASED: 45-59 ml/min/1.73 m2 G3B,MODERATELY TO SEVERELY DECREASED: 30-44 ml/min/1.73 m2 G4,SEVERELY DECREASED: 15-29 ml/min/1.73 m2 G5,KIDNEY FAILURE: <15 ml/min/1.73 m2 06/02/2021 10:1 9 AM WORLD GEOGRAPHY TEACHER Vernon Mercedes MD LABORATORY Final Result [facility] [address] [place] [address], documented in this encounter Visit Diagnoses Diagnosis Edema- Primary documented in this encounter Care Teams Side Gluer Relationship Specialty Start Date End Date Vernon Mercedes MD [address] [facility] [address] [place] [phone] PCP - General FAMILY PRACTICE 10/27/15 12/02/21 Evaristo Allan MD [address] [facility] [place] [address] [place] Zinc Chloride Operator CARDIOVASCULAR DISEASE 08/19/16 Raul Santana MD [address] [place] [address] CLINICAL CARDIAC ELECTROPHYSIOLOGY 06/16/17 Danny Blackwell MD 5 [place] [address] ORTHOPAEDIC SURGERY 05/01/19 Gayle Arce, ACCOUNT CONTACT ASSOCIATE, OIL RIG ROUGHNECK-C [address] [facility] [address] [place] [address] NURSE PRACTITIONER 03/03/20 documented as of this encounter
--- OUTSIDE RECORDS SUMMARY | 2024-04-23 04:24 | XMS_ITS | Encounter Summary ---
Author Organization [facility] Address [address] [place] [address]. [place] [address] [place] [address] Care Team Providers Care Journeyman Electrician Pv Installer Name Role Phone Evaristo Allan MD Unavailable Unavailabl Eve Duran MD Unavailable Unavailabl e Danny Blackwell MD Unavailable [phone] Gayle Arce APRN, FANCY SEWER-C Unavailable Ti Bonilla MD Primary Care Provider Encounter Details Date Type Department Care Team (Late st Contact Info) Description 12/03/2021 8:49 AM CDT - 12/03/2021 11:59 PM CDT Hospital Encounter [facility] [address] [facility] [place] [address] Eve Beth, DPM [address] [place] [address] Discharge Disposition: Home or Self Care (Routine [...] 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 100 tablet 10/18/2019 06/30/2023 atorvastatin 40 MG tablet Take 0.5 tablets (20 mg total) by mouth nightly at bedtime. 12/26/2023 celecoxib (CELEBREX) 200 MG capsuleIndicatio ns:Arthralgia of right foot,Arthralgia of right ankle Take 1 capsule (200 mg total) by mouth daily for 45 days. 45 capsule 3 12/03/2021 01/17/2022 famotidine 40 MG tablet Take 1 tablet [...] Contact Info) Description 04/25/2024 11:00 AM MEDICAL TECHNOLOGIST PRN Appointment [facility] [address] [place] [address] Ti Bonilla MD [address] [place] [phone] 05/23/2024 3:30 PM MEDICAL TECHNOLOGIST PRN Office Visit [facility] [address] [place] [phone] Jyoti Escobar MD [address] [place], [place] [phone] documented as of this encounter Procedures Procedure Name Priority Date/Time Associated Diagnosis Comments XR FOOT STANDING RT 3V Routine 12/03/2021 9:08 AM CDT Arthralgia of right foot XR ANKLE STANDING RT 3V Routine 12/03/2021 9:08 AM CDT Arthralgia of right ankle documented in this encounter Results * XR ANKLE STANDING RT 3V (12/03/2021 9:08 AM CDT) Anatomical Region Laterality Modality Ankle Radiographic Shannan ging 12/03/2021 10:5 0 AM CDT Impressions 12/03/2021 10:53 AM CDT IMPRESSION: Degenerative changes of the foot as described above. Ordered By: EVE BETH Interpreted By: Hakeem Ga MD, 12/03/2021 10:50 AM Narrative 12/03/2021 10:53 AM CDT Examination: XR ANKLE STANDING RT 3V, XR FOOT STANDING RT 3V Exam time: 12/03/2021 9:08 AM Indication: Arthralgia with swelling. Comparison: Right foot and ankle radiograph on 01/03/2021 Technique: 3 views of the right foot, 3 images. 3 views of the right ankle, 3 images. Findings: No fracture or dislocation. The ankle mortise is well-maintained in the talar dome is intact. No ankle joint effusion. No evidence of osseous erosion. There are moderate to severe degenerative changes of the midfoot. There are scattered mild degenerative changes of the interphalangeal joints. Arterial vascular calcifications are seen throughout the ankle and foot. There are Achilles and plantar enthesophytes. Procedure Note Hakeem Ga MD - 12/03/2021 Examination: XR ANKLE STANDING RT 3V, XR FOOT STANDING RT 3V Exam time: 12/03/2021 9:08 AM Indication: Arthralgia with swelling. Comparison: Right foot and ankle radiograph on 01/03/2021 Technique: 3 views of the right foot, 3 images. 3 views of the rightankle, 3 images. Findings: No fracture or dislocation. The ankle mortise is well-maintainedin the talar dome is intact. No ankle joint effusion. No evidence ofosseous erosion. There are moderate to severe degenerative changes of themidfoot. There are scattered mild degenerative changes of theinterphalangeal joints. Arterial vascular calcifications are seenthroughout the ankle and foot. There are Achilles and plantarenthesophytes. IMPRESSION: Degenerative changes of the foot as described above. Ordered By: EVE BETH Interpreted By: Hakeem Ga MD, 12/03/2021 10:50 AM Eve Beth DPM GENERAL IMAGING Final Resul t * XR FOOT STANDING RT 3V (12/03/2021 9:08 AM CDT) Anatomical Region Laterality Modality Foot Radiographic Shannan ging 12/03/2021 10:5 0 AM CDT Impressions 12/03/2021 10:53 AM CDT IMPRESSION: Degenerative changes of the foot as described above. Ordered By: EVE BETH Interpreted By: Hakeem Ga MD, 12/03/2021 10:50 AM Narrative 12/03/2021 10:53 AM CDT Examination: XR ANKLE STANDING RT 3V, XR FOOT STANDING RT 3V Exam time: 12/03/2021 9:08 AM Indication: Arthralgia with swelling. Comparison: Right foot and ankle radiograph on 01/03/2021 Technique: 3 views of the right foot, 3 images. 3 views of the right ankle, 3 images. Findings: No fracture or dislocation. The ankle mortise is well-maintained in the talar dome is intact. No ankle joint effusion. No evidence of osseous erosion. There are moderate to severe degenerative changes of the midfoot. There are scattered mild degenerative changes of the interphalangeal joints. Arterial vascular calcifications are seen throughout the ankle and foot. There are Achilles and plantar enthesophytes. Procedure Note Hakeem Ga MD - 12/03/2021 Examination: XR ANKLE STANDING RT 3V, XR FOOT STANDING RT 3V Exam time: 12/03/2021 9:08 AM Indication: Arthralgia with swelling. Comparison: Right foot and ankle radiograph on 01/03/2021 Technique: 3 views of the right foot, 3 images. 3 views of the rightankle, 3 images. Findings: No fracture or dislocation. The ankle mortise is well-maintainedin the talar dome is intact. No ankle joint effusion. No evidence ofosseous erosion. There are moderate to severe degenerative changes of themidfoot. There are scattered mild degenerative changes of theinterphalangeal joints. Arterial vascular calcifications are seenthroughout the ankle and foot. There are Achilles and plantarenthesophytes. IMPRESSION: Degenerative changes of the foot as described above. Ordered By: EVE BETH Interpreted By: Hakeem Ga MD, 12/03/2021 10:50 AM Eve Beth DP GENERAL IMAGING Final Resul t documented in this encounter Visit Diagnoses Diagnosis Arthralgia of right foot Pain in joint, ankle and foot Arthralgia of right ankle Pain in joint, ankle and foot documented in this encounter Care Teams Journeyman Electrician Pv Installer Relationship Specialty Start Date End Date Ti Bonilla MD [address] [place] [phone] PCP - General FAMILY PRACTICE 12/03/21 Evaristo Allan MD [place] Institutional Asset Manager CARDIOVASCULAR DISEASE 08/19/16 Eve Santana MD CLINICAL CARDIAC ELECTROPHYSIOLOGY 06/16/17 Danny Blackwell MD [address] [place] [address] ORTHOPAEDIC SURGERY 05/01/19 Gayle Arce, BARBARA, FANCY SEWER-C [address] [phone] NURSE PRACTITIONER 03/03/20 documented as of this encounter
--- OUTSIDE RECORDS SUMMARY | 2024-04-23 04:24 | XMS_ITS | Encounter Summary ---
Author Organization [facility] Address [address] [place] [address]. [place], [place] [address] [place] [address] Care Team Providers Care Elementary School Director Name Role Phone Vernon Mecredes MD Primary Care Provider [phone] Evaristo Allan MD Unavailable UnavailRaul Suresh MD Unavailable Unavailabl Danny Lopes MD Unavailable [phone] Gayle Arce APRN, CITY LETTER CARRIER-C Unavailable Encounter Details Date Type Department Care Team (Latest Contact Info) Description 06/18/2021 Travel Social History Tobacco Use Types Packs/Day [...] suspected to have Coronavirus/COVID-19? No / Unsure 06/18/2021 7:40 AM SPECIAL EDUCATION PARAPROFESSIONAL documented as of this encounter Functional Status [...] st Contact Info) Description 04/25/2024 11:00 AM SPECIAL EDUCATION PARAPROFESSIONAL Appointment [facility] [address] [place] [address] Ti Bonilla MD [address] [place] [phone] 05/23/2024 3:30 PM SPECIAL EDUCATION PARAPROFESSIONAL Office Visit [facility] [address] [place] [address] Jyoti Escobar MD [address] [place] [address] documented as of this encounter Visit Diagnoses Not on filedocumented in this encounter Care Teams Elementary School Director Relationship Specialty Start Date End Date Vernon Mercedes MD [address] [place] [address] PCP - General FAMILY PRACTICE 10/27/15 12/02/21 Evaristo Allan MD [address] [place] [address] [place] Mechanical System Technician CARDIOVASCULAR DISEASE 08/19/16 Raul Santana MD [address] [place] [address] CLINICAL CARDIAC ELECTROPHYSIOLOGY 06/16/17 Danny Blackwell MD [address] [place] [address] ORTHOPAEDIC SURGERY 05/01/19 Gayle Arce, LEGAL ADMINISTRATOR, CITY LETTER CARRIER-C [address] [facility] [address] [place] [phone] NURSE PRACTITIONER 03/03/20 documented as of this encounter
--- OUTSIDE RECORDS SUMMARY | 2024-04-23 04:24 | XMS_ITS | Encounter Summary ---
Author Organization [facility] Address [address] [place] [address]. 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 [...] st Contact Info) Description 04/25/2024 11:00 AM CUSTOM LEATHER PRODUCTS MAKER Appointment [facility] [address] [place] [address] Ti Bonilla MD [address] [place] [phone] 05/23/2024 3:30 PM CUSTOM LEATHER PRODUCTS MAKER Office Visit [facility] [address] [place] [address] Jyoti Escobar MD [address] [place] [address] documented as of this encounter Visit Diagnoses Not on filedocumented in this encounter Care Teams Auction Block Clerk Relationship Specialty Start Date End Date Vernon Mercedes MD [address] [place] [address] PCP - General FAMILY PRACTICE 10/27/15 12/02/21 Evaristo Allan MD [address] [place] [address] [place] Care Support Representative CARDIOVASCULAR DISEASE 08/19/16 Raul Santana MD [address] [place] [address] CLINICAL CARDIAC ELECTROPHYSIOLOGY 06/16/17 Danny Blackwell MD [address] [place] [address] ORTHOPAEDIC SURGERY 05/01/19 Gayle Arce, BARBARA, ARCHEOLOGIST CLASSICAL-C [address] [facility] [address] [place] [phone] NURSE PRACTITIONER 03/03/20 documented as of this encounter
--- OUTSIDE RECORDS SUMMARY | 2024-04-23 04:24 | XMS_ITS | Encounter Summary ---
Author Organization [facility] Address [address] [place] [address]. [place], [place] [address] [place] [address] Care Team Providers Care Inclusion Special Educator Name Role Phone Vernon Mercedes MD Primary Care Provider [phone] Evaristo Allan MD Unavailable UnavailRaul Suresh MD Unavailable Unavailabl Danny Lopes MD Unavailable [phone] Gayle Arce APRN, BUTTON STATION WORKER-C Unavailable Encounter Details Date Type Department Care Team (Latest Contact Info) Description 08/31/2021 3:33 PM CDT - 08/31/2021 11:59 PM CDT Hospital Encounter [facility] [address] [facility] [place] [address] Evaristo Allan MD Discharge Disposition: Home or Self [...] 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 No / Unsure 08/31/2021 3:33 PM CDT documented as of this encounter [...] st Contact Info) Description 04/25/2024 11:00 AM DEDICATED REGIONAL DRIVER Appointment [facility] [address] [place] [address] Ti Bonilla MD [address] [place] [phone] 05/23/2024 3:30 PM DEDICATED REGIONAL DRIVER Office Visit [facility] [address] [place] [address] Jyoti Escobar MD [address] [place] [address] documented as of this encounter Procedures Procedure Name Priority Date/Time Associated Diagnosis Comments CORONAVIRUS (COVID 19) Routine 08/31/2021 3:46 PM CDT Pre-operative laboratory examination documented in this encounter Results * PRE-SURGICAL/PRE-PROCEDURE CORONAVIRUS (COVID 19) (08/31/2021 3:46 PM CDT) SPEC DESCRIPTION NASAL 09/01/19 3:44 PM CDT [facility] CORONAVIRUS SARS COV 2 PCR (RESP) NEGATIVE NEGATIVE 09/01/2021 8:03 PM CDT [facility] Comment: THE SARS-CoV-2 TEST HAS BEEN AUTHORIZED BY THE FDA UNDER AN EUA FOR USE BY AUTHORIZED LABORATORIES. PERFORMED BY NUCLEIC ACID AMPLIFICATION PCR FIRST TEST UNKNOWN 08/31/2021 3:44 PM CDT [facility] EMPLOYED IN HEALTHCARE YES 08/31/2021 3:44 PM CDT [facility] SYMPTOMATIC DEFINED BY CDC UNKNOWN 08/31/2021 3:44 PM CDT [facility] HOSPITALIZATION STATUS NO 08/31/2021 3:44 PM CDT [facility] PATIENT IN ICU NO 08/31/2021 3:44 PM CDT [facility] RESIDENT OF COMMUNITY HEALTH CARE YES 08/31/2021 3:44 PM CDT [facility] NASAL STRUCTURE / Unknown 08/31/2021 3:46 PM CDT us Evaristo Allan MD MICROBIOLOGY - GENERAL SUKHWINDER COOPER Final Result [facility] [address] [place] [address], [place] [phone] [facility] [address] [place] [address], [place] [phone] documented in this encounter Visit Diagnoses Diagnosis Pre-operative laboratory examination Pre-procedural laboratory examination documented in this encounter Additional Health Concerns Infection Onset Date Last Indicated Resolved Time COVID-19 Rule Out 08/31/2021 08/31/2021 09/01/2021 8:03 PM CDT documented as of this encounter Care Teams Inclusion Special Educator Relationship Specialty Start Date End Date Vernon Mercedes MD [address] [place] [address] PCP - General FAMILY PRACTICE 10/27/15 12/02/21 Evaristo Allan MD [address] [place] [address] [place] Principal Bioinformatics Specialist CARDIOVASCULAR DISEASE 08/19/16 Raul Santana MD [facility] [place] [address] CLINICAL CARDIAC ELECTROPHYSIOLOGY 06/16/17 Danny Blackwell MD [address] [place] [address] ORTHOPAEDIC SURGERY 05/01/19 Gayle Arce, OPERATING ROOM MANAGER, BUTTON STATION WORKER-C [address] [facility] [address] [place] [phone] NURSE PRACTITIONER 03/03/20 documented as of this encounter
--- OUTSIDE RECORDS SUMMARY | 2024-04-23 04:24 | XMS_ITS | Encounter Summary ---
Author Organization [facility] Address [address] [place] [address]. [place], [place] [id number] [place] [address] Care Team Providers Care Service Assistant Name Role Phone Vernon Mercedes MD Primary Care Provider [phone] Evaristo Allan MD Unavailable UnavailRaul Suresh MD Unavailable Unavailabl Danny Lopes MD Unavailable [phone] Gayle Arce APRN, COPYRIGHT MANAGER-C Unavailable Encounter Details Date Type Department Care Team (Latest Contact Info) Description 11/17/2021 Travel Social History Tobacco Use Types Packs/Day [...] or climbing stairs? No 11/17/2021 3:30 PM CDT Angela Mancuso RN A ctive * Question Answer Date [...] st Contact Info) Description 04/25/2024 11:00 AM OXIDATION ENGINEER Appointment [facility] [address] [place] [address] Ti Bonilla MD [address] [place] [phone] 05/23/2024 3:30 PM OXIDATION ENGINEER Office Visit [facility] [address] [place] [address] Jyoti Escobar MD [address] [place], [place] [phone] documented as of this encounter Visit Diagnoses Not on filedocumented in this encounter Care Teams Service Assistant Relationship Specialty Start Date End Date Vernon Mercedes MD [address] [place] [address] PCP - General FAMILY PRACTICE 10/27/15 12/02/21 Evaristo Allan MD [address] [place], [place] [address] [address] Nanjemoy Conveyor Loader CARDIOVASCULAR DISEASE 08/19/16 Raul Santana MD [facility] [place] [address] CLINICAL CARDIAC ELECTROPHYSIOLOGY 06/16/17 Danny Blackwell MD [address] [place] [address] ORTHOPAEDIC SURGERY 05/01/19 Gayle Arce APRN, COPYRIGHT MANAGER-C [address] [facility] [address] [place] [phone] NURSE PRACTITIONER 03/03/20 documented as of this encounter
--- OUTSIDE RECORDS SUMMARY | 2024-04-23 04:24 | XMS_ITS | Encounter Summary ---
Author Organization [facility] Address [address] [place] [address]. [place] [address] [place] [address] Care Team Providers Care Leather Seasoner Name Role Phone Ton Mercedes MD Primary Care Provider [phone] Elza Allan MD Unavailable Unavailabl Raul Duran MD Unavailable Unavailabl Danny Lopes MD Unavailable [phone] Gayle Arce APRN, RURAL CARRIER ASSOCIATE-C Unavailable Reason for Visit * Reason Comments Follow Up Dizziness Encounter Details Date Type Department Care Team ([facility] Contact Info) Description 11/03/2021 11:00 AM CDT Office Visit [facility] [address] [place] [address] Gayle Arce APRN, RURAL CARRIER ASSOCIATE-C [address] [facility] [address] [place] [address] Follow Up; Dizziness Social History Tobacco Use Types Packs/Day Years [...] 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 No / Unsure 11/03/2021 10:46 AM CDT documented as of this encounter Last Filed Vital Signs Vital Sign Reading Time Taken Comments Blood Pressure 82/48 11/03/2021 10:50 AM CDT Pulse 71 11/03/2021 10:50 AM CDT Temperature - - Respiratory Rate 22 11/03/2021 10:50 AM CDT Oxygen Saturation - - Inhaled Oxygen Concentration - - Weight 127 kg (280 lb) 11/03/2021 10:50 AM CDT Height 180.3 cm (5' 11 ) 11/03/2021 10:50 AM CDT Body Mass Index 39.05 11/03/2021 10:50 AM CDT documented in this encounter Functional [...] encounter Progress Notes * Gayle Arce APRN, RURAL CARRIER ASSOCIATEKavtiaC - 11/03/2021 11:00 AM CDT FROM: Gayle Arce APRN, ALEXANDRE-C, collaborating physician Elza Allan III, M.D. RE: Elza Mckeon : 1960 Reason for Visit: Follow Up and Dizziness History of Present Illness: Mr. Mckeon is a pleasant 61-year-old male seen in the cardiology clinic today for a followup visit regarding lightheadedness and hypotension. He has a history of coronary artery disease s/p MANAGER STRATEGY & ACCOUNT PCI on03/24/18, atrial fibrillation s/p ablation in 2016, hypertension, hyperlipidemia, diabetes, and sleep apnea. He was found to be in atrial flutter in August, and underwent a cardioversion on 09/02/2021. His follow-up EKG on 09/08/2021 revealed sinus rhythm. However, he tells me that he has been unwell since his cardioversion. He is significantly lightheaded with any exertion. His blood pressures at home have been persistently low with readings of 66/40 and 74/45 mmHg. He has to hold onto his when walking. He denies any syncope. He has shortness of breath with exertion. He has occasional palpitations. He tells me that Dr. Mercedes believes that he was back in atrial fibrillation at his last office visit. He has occasional episodes of chest discomfort with activity. He denies any persistent orthopnea, but did havean episode of paroxysmal nocturnal dyspnea last week. He reports good CPAP compliance. He is had issues with edema that progresses throughout the day. He denies signs and symptoms of CVA or TIA. He se ems to be tolerating his present medications well without reported side effects other than those described above. He denies signs of bleeding. Evaluation during the clinic visit included an EKG which confirmed the presence of atrial flutter at a rate of 71 beats per minute. Recommendations/Plan: Mr. Mckeon has had a recurrence of atrial flutter. He is quite symptomatic in the office today. He has had shortness of breath, edema, and lightheadedness with hypotension. His nuclear stress test in December did not identify evidence of ischemia. His echocardiogram at that time noted an LVEF 55 to60% with no significant valvular disease. I suspect his symptomatology is related to his arrhythmia. We will make arrangements for him to see electrophysiology, as his recent cardioversion did not provide sustaining results. I have recommended the following to Mr. Mckeon: 1. Atrial Flutter, History of Atrial Fibrillation. He is in atrial flutter in the office today. Hisheart rate is reasonably controlled with metoprolol. He is anticoagulated with Pradaxa. He was previously seen by Dr. Santana, who is no longer with the practice. He will establish with Dr. Yin today. 2. Lightheadedness, Hypotension. His only medications that are currently affecting his blood pressure are his metoprolol and furosemide, which are both needed at this time. I am hoping with returningto sinus rhythm his blood pressure and his fluid status will improve. He will continue his current m edications for now. 3. CAD. He is having some episodes of chest discomfort, which may be demand ischemia. His recent nuclear stress test did not reveal evidence of ischemia. Once he returns to sinus rhythm, if he continues to have symptoms we will then proceed with further ischemic evaluation. He will continue his aspirin and statin. 4. Hyperlipidemia. He is currently treated with atorvastatin and denies any reported side effects. An LDL less than 70 is recommended. We will plan to see Mr. Mckeon in six months pending his clinical course. I have encouraged him to contact me in the meantime should he have any questions or problems. Medications: Current Outpatient Medications: ??? amitriptyline 100 MG [...] times a day., Disp: , Rfl: ??? NOVOLOG FLEXPEN 100 UNIT/ML injection (PEN), [...] a day. , Disp: , Rfl: ??? nitroglycerin 0.4 MG SL tablet, Place 1 tablet (0.4 mg total) under the tongue every 5 (five) minutes as needed for Chest Pain., Disp: 25 tablet, Rfl: 1 ??? TRUEPLUS PEN NEEDLES 31G X 8 MM Misc, , Disp: , Rfl: Allergies Allergen Reactions ??? Doxycycline Other (see comment) Blisters in the mouth ? ? Tetracyclines & Related Other (see comment) Blisters in the mouth Past Medical History: Diagnosis Date ??? Abnormal [...] CATHETERIZATION 01/04/2018 occluded prox RCA w/well developed usep-ro-mrxyn collaterals lvef 55-60% ??? CARDIAC CATHETERIZATION 11/13/2018 ??? FRACTURE SURGERY ??? 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 HERNIA REPAIR ??? JOINT REPLACEMENT ??? KNEE ARTHROPLASTY Bilateral ??? LITHOTRIPSY ??? XA ABLATION 05/19/2016 ??? XA CORONARY INTERVENTION 03/24/2018 MANAGER STRATEGY & ACCOUNT PCI-mid RCA Social History Tobacco Use ??? [...] Grandfather ??? No Known Problems Maternal Grandmother Family Status Relation Name Status ??? Mother Alive ??? Sister Alive ??? Brother Alive ??? Brother ??? Sister Alive ??? Father cancer ??? PGF ??? PGM ??? MGF ??? MGM Review of Systems Constitutional: Positive for fatigue and weakness. Negative for recent unintentional weight gain and recent unintentional weight loss. HENT: Negative for new or significant hearing loss. Eyes: Negative for blurred vision and double vision. Respiratory: Positive for shortness of breath. Negative for cough and snoring. Cardiovascular: See HPI. Positive for chest pain, palpitations, leg swelling and PND. Gastrointestinal: Negative for blood in stool and melena. Genitourinary: Negative for dysuria. Musculoskeletal: Negative for myalgias and new or worsening joint stiffness/pain. Skin: Negative for rash. Neurological: Positive for dizziness. Negative for tingling/numbness and focal weakness. Endo/Heme/Allergies: Negative for new or significant bruising/bleeding and polydipsia. Psychiatric/Behavioral: Negative for depression and new or significant memory loss. Vitals: 11/03/21 1050 BP: (!) 82/48 Patient Position: Sitting BP Location: Right arm Pulse: 71 Weight: 127 kg (280 lb) Height: 5' 11 (1.803 m) Body mass index is 39.05 kg/m??. Cardiac Exam Rate/Rhythm: Normal rate and regular rhythm. PMI: Pulses: Normal pulses. Dorsalis pedis pulses [...] Exam Constitutional: No distress. Healthy Appearance. HENT: Mask. Eyes: Pupils equal, round, and reactive to light. Conjunctivae normal. Neck: Neck supple. No JVD. Abdomen: Abdomen soft. Bowel sounds normal. No distension. No tenderness. No abdominal bruit present. Pulmonary: Effort normal. Breath sounds normal. Skin: Dry. Warm. No rash. No jaundice. No cyanosis. No clubbing. No xanthoma. Musculoskeletal: No kyphosis. Normal ROM. Neurological: Alert. Oriented x 3. Appropriate mood and affect. Comments: Diagnoses/Impression: 1. Atrial flutter, unspecified type (CMS/HCC) 2. Paroxysmal atrial fibrillation (CMS/HCC) 3. Lightheadedness 4. Hypotension, unspecified hypotension type 5. Coronary artery disease involving suquamish coronary artery of suquamish heart, unspecified whether angina present Referring Provider: No ref. provider found PCP: TON MERCEDES MD documented in this encounter Plan of Treatment Upcoming Encounters Date Type Department Care Team (Late st Contact Info) Description 04/25/2024 11:[address] IN WAITER/WAITRESS Appointment [facility] [facility] [place] [address] Ti Bonilla MD [address] [place] [phone] 05/23/2024 3:[address] IN WAITER/WAITRESS Office Visit [facility] [address] [place] [address] Jyoti Escobar MD [address] [place] [id number] documented as of this encounter Procedures Procedure Name Priority Date/Time Associated Diagnosis Comments ELECTROCARDIOGRAM (NON MIDMARK ACQUIRED) Routine 11/03/2021 10:55 AM CDT Coronary artery disease involving suquamish coronary artery of suquamish heart, unspecified whether angina present Paroxysmal atrial fibrillation (CMS/HCC [facility]/HCC) documented in this encounter Results * ELECTROCARDIOGRAM (11/03/2021 10:55 AM CDT) 11/03/2021 10:5 5 AM CDT Narrative [facility] - 11/04/2021 2:16 PM CDT ? [facility] ?[address] [place], [place] ??[address] ? Test Date: ?2021-11-03 Pat Name: ? ELZA MCKEON ? Department: ?? 105 ? Room: ? Gender: ? Male ? Track Welder: ?? : ?1960 ? Requested By: ELZA ALLAN Order Number: [id number] ?Reading MD: ?? Arnel Murillo ? Measurements Intervals ?Isabella ? Rate: ? 71 ? P: ? VT: ? 0 ?QRS: ?60 QRSD: ? 110 ?T: ?47 QT: ? 399 ? QTc: ?436 ? Interpretive Statements ATRIAL FLUTTER/TACHYCARDIA INCOMPLETE RIGHT BUNDLE BRANCH BLOCK ABNORMAL RHYTHM ECG Procedure Note Arnel Murillo MD - 11/04/2021 [facility], [place] [address] [place] [address] Test Date: 2021-11-03 Pat Name: ELZA [facility] Department: 105 Room: Gender: Male Track Welder: : 1960 Requested By: ELZA ALLAN Order Number: [id number] Jose Antonio OSMAN: Arnel Murillo Measurements Intervals Isabella Rate: 71 P: VT: 0 QRS: 60 QRSD: 110 T: 47 QT: 399 QTc: 436 Interpretive Statements ATRIAL FLUTTER/TACHYCARDIA INCOMPLETE RIGHT BUNDLE BRANCH BLOCK ABNORMAL RHYTHM ECG us Elza Allan MD PROCEDURES-ORDERABLE NO LENO RGE Final Result [facility] documented in this encounter Visit Diagnoses Diagnosis Atrial flutter, unspecified type (CMS/HCC HHS/HCC)- Primary Paroxysmal atrial fibrillation (CMS/HCC HHS/HCC) Atrial fibrillation Lightheadedness Dizziness and giddiness Hypotension, unspecified hypotension type Coronary artery disease involving suquamish coronary artery of suquamish heart, unspecified whether angina present documented in this encounter Care Teams Leather Seasoner Relationship Specialty Start Date End Date Ton Mercedes MD [address] [place] [address] PCP - General FAMILY PRACTICE 10/27/15 12/02/21 Elza Allan MD [address] [place] [address] Freeman Assistant Director Of Admissions CARDIOVASCULAR DISEASE 08/19/16 Raul Santana MD [facility] [place] [address] CLINICAL CARDIAC ELECTROPHYSIOLOGY 06/16/17 Danny Blackwell MD [address] [place] [address] ORTHOPAEDIC SURGERY 05/01/19 Gayle Arce APRN, RURAL CARRIER ASSOCIATE-C [address] [facility] [address] [place] [phone] NURSE PRACTITIONER 03/03/20 documented as of this encounter
--- OUTSIDE RECORDS SUMMARY | 2024-04-23 04:24 | XMS_ITS | Encounter Summary ---
Author Organization [facility] Address [address] [place] [address]. [place], [place] [address] [place] [address] Care Team Providers Care Insurance Legal Assistant Name Role Phone Evaristo Allan MD Unavailable Unavailabl e Eve Santana MD Unavailable Unavailabl e , Danny Galo MD Unavailable [phone] Gayle Arce APRN, GRAIN SCOOPER-C Unavailable Ti Zamora MD Primary Care Provider Reason for Referral * Imaging (Routine) - Closed Specialty Diagnoses / Procedures Referred By Charito t Referred To Contact RADIOLOGY Diagnoses 3+ pitting edema Acute deep vein thrombosis (DVT) of calf muscle vein of right lower extremity (CMS/HCC HHS/HCC) Procedures USV KEVIN DUPLEX LOW EXT RT Eve Beth DPM [address] [place] [address] Phone: tel: fax: Referral ID Status Reason Start Date Expiration Date Visits Re quested Visits Authorized [id number] Closed 12/31/2021 01/30/2023 1 1 Reason for Visit * Reason Comments Follow Up Pt is here today fol lowing up on bilateral foot pain and blisters. He states he is having more pain in his Rt 4th and 5th toes. The swelling has not gone away.ROM is getting more difficult. The blisters have been okay. Pt is diabetic and states his Accu chek this morning is 158./JRK Encounter Details Date Type Department Care Team (Late st Contact Info) Description 12/31/2021 9:00 AM CDT Office Visit [facility] - [address], [address] [place] [address] Eve Beth, DPM [address] [place] [address] Follow Up (Pt is here today following up on bilateral foot pain and blisters. He states he is having more pain in his Rt 4th and 5th toes. The swelling has not gone away.ROM is getting more difficult. The blisters have been okay. 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 No / Unsure 12/31/2021 8:49 AM CDT documented as of this encounter Last Filed Vital Signs Vital Sign Reading Time Taken Comments Blood Pressure 132/73 12/31/2021 9:16 AM CDT Pulse 81 12/31/2021 9:16 AM CDT Temperature - - Respiratory Rate - - Oxygen Saturation 96% 12/31/2021 9:16 AM CDT Inhaled Oxygen Concentration - - [...] this encounter Progress Notes * Eve Beth, CAROLYN - 12/31/2021 9:00 AM CDT Reason for Visit: Follow Up (Pt is here today following up on bilateral foot pain and blisters. He states he is having more pain in his Rt 4th and 5th toes. The swelling has not gone away.ROM is getting more difficult. The blisters have been okay. Pt is diabetic and states his Accu chek this morning is 158./JRK) History of Present Illness: Evaristo Zelaya is a 61-year-old male here for continued bilateral edema with right much worse than left and pain associated with his foot area especially the fourth and fifth toes. He states thepain is there most times relieved somewhat with rest but not necessarily complete resolution. I have reviewed the chart. ROS: ROS Filed Vitals: 12/31/21 0916 BP: 132/73 Pulse: 81 SpO2: 96% PHYSICAL EXAM I have performed a thorough and complete physical exam of the foot and ankle area bilateral; to include vascular, neurologic, dermatologic, and musculoskeletal evaluation. Nonpalpable pulses secondary to pitting edema bilaterally varicosities noted right foot is worse than left with significant pitting edema on the right. No other issues or abnormalities noted. Diagnoses/Impression: 1. 3+ pitting edema USV KEVIN DUPLEX LOW EXT RT 2. Acute deep vein thrombosis (DVT) of calf muscle vein of right lower extremity (CMS/HCC) USV KEVIN DUPLEX LOW EXT RT Recommendations and Plan: My concern is the patient may be experiencing the swelling associated with the right lower extremity because of a possible DVT or perhaps just chronic inflammation. I am going to rule out DVT first also he will begin compression to the area and range of motion we will see how he progresses. We willsee him back after we were able to obtain the venous Doppler which was ordered today. We discussed with him to present to the emergency room with any shortness of breath things of this nature. EVE BETH Referring Provider: Ti Zamora MD PCP: TI ZAMORA MD documented in this encounter Plan of Treatment Upcoming Encounters Date Type Department Care Team (Late st Contact Info) Description 04/25/2024 11:00 AM FAMILY LAW ATTORNEY Appointment [facility] [address] [place] [address] [place] [address] Ti Zamora MD [address] [place] [phone] 05/23/2024 3:30 PM FAMILY LAW ATTORNEY Office Visit [facility] [address] [place] [address] [place] [address] Jyoti Escobar MD [address] [place] [address] documented as of this encounter Results * USV KEVIN DUPLEX LOW EXT RT (01/22/2022 8:25 AM CDT) Anatomical Region Laterality Modality Extremity Ultrasound 01/22/2022 8:48 AM CDT Impressions 01/22/2022 8:49 AM CDT IMPRESSION: No evidence of deep venous thrombosis. Ordered By: EVE BETH Interpreted By: Matteo Buenrostro MD, 01/22/2022 8:48 AM Narrative 01/22/2022 8:49 AM CDT Examination: Right lower extremity venous color Doppler ultrasound. Exam time: 0817 hours. Clinical history: Pitting edema. Comparison: None. Technique: Grayscale and color Doppler images including spectral analysis. Findings: Color Doppler evaluation of the deep veins of the right lower extremity demonstrates normal appearing color flow, spectra and compressibility throughout. No intraluminal filling defects are identified. Procedure Note Matteo Buenrostro MD - 01/22/2022 Examination: Right lower extremity venous color Doppler ultrasound. Exam time: 0817 hours. Clinical history: Pitting edema. Comparison: None. Technique: Grayscale and color Doppler images including spectralanalysis. Findings: Color Doppler evaluation of the deep veins of the right lowerextremity demonstrates normal appearing color flow, spectra andcompressibility throughout. No intraluminal filling defects areidentified. IMPRESSION: No evidence of deep venous thrombosis. Ordered By: EVE BETH Interpreted By: Matteo Buenrostro MD, 01/22/2022 8:48 AM Eve Beth [facility] Final Resul t documented in this encounter Visit Diagnoses Diagnosis 3+ pitting edema- Primary Acute deep vein thrombosis (DVT) of calf muscle vein of right lower extremity (CMS/HCC HHS/HCC) 3+ pitting edema Acute deep vein thrombosis (DVT) of calf muscle vein of right lower extremity (CMS/HCC HHS/HCC) documented in this encounter Care Teams Insurance Legal Assistant Relationship Specialty Start Date End Date Ti Zamora MD [address] [place] [phone] PCP - General FAMILY PRACTICE 12/03/21 Evaristo Allan MD [place] [employer] Agent CARDIOVASCULAR DISEASE 08/19/16 Eve Santana MD CLINICAL CARDIAC ELECTROPHYSIOLOGY 06/16/17 Danny Blackwell MD [address] [place] [address] ORTHOPAEDIC SURGERY 05/01/19 Gayle Arce APRN, GRAIN SCOOPER-C [address] [facility] [address] [place] [address] NURSE PRACTITIONER 03/03/20 documented as of this encounter
--- OUTSIDE RECORDS SUMMARY | 2024-04-23 04:24 | XMS_ITS | Encounter Summary ---
Author Organization [facility] Address [address] [place] [address]. 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 Not on [...] st Contact Info) Description 04/25/2024 11:00 AM PROGRAM LEAD Appointment [facility] [address] [place] [address] [place] [address] Ti Bonilla MD [address] [place] [phone] 05/23/2024 3:30 PM PROGRAM LEAD Office Visit [facility] [address] [facility] [address] Jyoti Escobar MD [address] [place] [phone] documented as of this encounter Results * ELECTROCARDIOGRAM (11/03/2021 10:55 AM CDT) 11/03/2021 10:5 5 AM CDT Narrative [facility] - 11/04/2021 2:16 PM CDT ? [facility] ?[address], [place] ??[address] ? Test Date: ?2021-11-03 Pat Name: ? ELZA MCKEON ? Department: ?? 105 ? Room: ? Gender: ? Male ? Psych Tech: ?? : ?1960 ? Requested By: ELZA FLOYD Order Number: [id number] ?Reading MD: ?? Arnel Murillo ? Measurements Intervals ?[place] ? Rate: ? 71 ? P: ? KS: ? 0 ?QRS: ?60 QRSD: ? 110 ?T: ?47 QT: ? 399 ? QTc: ?436 ? Interpretive Statements ATRIAL FLUTTER/TACHYCARDIA INCOMPLETE RIGHT BUNDLE BRANCH BLOCK ABNORMAL RHYTHM ECG Procedure Note Arnel Murillo MD - 11/04/2021 [facility], [facility] [address] [place] [address] Test Date: 2021-11-03 Pat Name: [facility] Department: 105 Room: Gender: Male Psych Tech: : 1960 Requested By: ELZA FLOYD Order Number: [id number] Reading MD: Arnel Murillo Measurements Intervals [place] Rate: 71 P: [place]: 0 QRS: 60 QRSD: 110 T: 47 QT: 399 QTc: 436 Interpretive Statements ATRIAL FLUTTER/TACHYCARDIA INCOMPLETE RIGHT BUNDLE BRANCH BLOCK ABNORMAL RHYTHM ECG Elza Floyd MD PROCEDURES-ORDERABLE NO LENO RGE Final Result [facility] documented in this encounter Visit Diagnoses Diagnosis Atrial flutter, unspecified type (CMS/HCC HHS/HCC)- Primary Paroxysmal atrial fibrillation (CMS/HCC HHS/HCC) Atrial fibrillation Lightheadedness Dizziness and giddiness Hypotension, unspecified hypotension type Coronary artery disease involving pilot point coronary artery of pilot point heart, unspecified whether angina present Coronary artery disease involving pilot point coronary artery of pilot point heart, unspecified whether angina present- Primary Paroxysmal atrial fibrillation (CMS/HCC HHS/HCC) Atrial fibrillation documented in this encounter Care Teams Recreational Resort Manager Relationship Specialty Start Date End Date Vernon Mercedes MD [address] [place] [address] PCP - General FAMILY PRACTICE 10/27/15 12/02/21 Elza Floyd MD [address] [place] [address] [place] [employer] CARDIOVASCULAR DISEASE 08/19/16 Raul Santana MD [address] [place] [address] CLINICAL CARDIAC ELECTROPHYSIOLOGY 06/16/17 Danny Blackwell MD [address] [place] [address] ORTHOPAEDIC SURGERY 05/01/19 Gayle Arce, MEDICAL STAFF SERVICES MANAGER, SOLE STAINER-C [address] [facility] [address] [place] [address] NURSE PRACTITIONER 03/03/20 documented as of this encounter
--- OUTSIDE RECORDS SUMMARY | 2024-04-23 04:24 | XMS_ITS | Encounter Summary ---
Author Organization [facility] Address [address] [place] [address]. [place], [place] [address] [place], [place] [phone] Care Team Providers Care Foot Setter Name Role Phone Evaristo Allan MD Unavailable Unavailabl e Max, Eve Reyes MD Unavailable Unavailabl e , Danny Galo MD Unavailable [phone] Gayle Arce APRN, WHITING MACHINE OPERATOR-C Unavailable [phone] Ti Bonilla MD Primary Care Provider [phone] Reason for Referral * Imaging (Routine) - Closed Specialty Diagnoses / Procedures Referred By Charito ledbetter Referred To Contact RADIOLOGY Diagnoses 3+ pitting edema Acute deep vein thrombosis (DVT) of calf muscle vein of right lower extremity (CMS/HCC HHS/HCC) Procedures USV KEVIN DUPLEX LOW EXT RT Eve Beth DPM [address] [place] [address] Phone: tel: fax: Referral ID Status Reason Start Date Expiration Date Visits Re quested Visits Authorized [id number] Closed 12/31/2021 01/30/2023 1 1 Reason for Visit * Imaging (Routine) - Closed Specialty Diagnoses / Procedures Referred By Contac t Referred To Contact RADIOLOGY Diagnoses 3+ pitting edema Acute deep vein thrombosis (DVT) of calf muscle vein of right lower extremity (CMS/HCC HHS/HCC) Procedures USV KEVIN DUPLEX LOW EXT RT Eve Beth DPM [address] [place] [phone] Phone: tel: fax: Referral ID Status Reason Start Date Expiration Date Visits Re quested Visits Authorized [id number] Closed 12/31/2021 01/30/2023 1 1 Encounter Details Date Type Department Care Team (Late st Contact Info) Description 01/22/2022 8:16 AM CDT - 01/22/2022 11:59 PM CDT Hospital Encounter [facility] [address] [place] [address] Eve Beth, DPM [address] [place] [address] Discharge Disposition: Home or Self [...] st Contact Info) Description 04/25/2024 11:00 AM DOPER Appointment [facility] [address] [place] [address] [place] [address] Ti Bonilla MD [address] [place] [phone] 05/23/2024 3:30 PM DOPER Office Visit [facility] [place] [address] Jyoti Escobar MD [address] [place] [phone] documented as of this encounter Procedures Procedure Name Priority Date/Time Associated Diagnosis Comments USV KEVIN DUPLEX LOW EXT RT Routine 01/22/2022 8:25 AM CDT 3+ pitting edema Acute deep vein thrombosis (DVT) of calf muscle vein of right lower extremity ([facility]) documented in this encounter Results * USV KEVIN DUPLEX [...] Buenrostro MD, 01/22/2022 8:48 AM Eve Beth [facility] Final Resul t documented in this encounter Visit Diagnoses Diagnosis 3+ pitting edema Acute deep vein thrombosis (DVT) of calf muscle vein of right lower extremity (CMS/HCC HHS/HCC) documented in this encounter Care Teams Foot Setter Relationship Specialty Start Date End Date Ti Bonilla MD [address] [place] [phone] PCP - General FAMILY PRACTICE 12/03/21 Evaristo Allan MD [employer] Scrub Technician CARDIOVASCULAR DISEASE 08/19/16 Eve Santana MD CLINICAL CARDIAC ELECTROPHYSIOLOGY 06/16/17 Danny Blackwell MD [address] [place] [address] ORTHOPAEDIC SURGERY 05/01/19 Gayle Arce APRN, WHITING MACHINE OPERATOR-C [address] [phone] NURSE PRACTITIONER 03/03/20 documented as of this encounter
--- OUTSIDE RECORDS SUMMARY | 2024-04-23 04:24 | XMS_ITS | Encounter Summary ---
Author Organization [facility] Address [address] [place] [address]. [place], [place] [address] [place] [address] Care Team Providers Care Fire Hydrant Mechanic Name Role Phone Vernon Mercedes MD Primary Care Provider [phone] Elza Allan MD Unavailable UnavailRaul Suresh MD Unavailable Unavailabl Danny Lopes MD Unavailable [phone] Gayle Arce APRN, RAILROAD ENGINEER-C Unavailable [phone] Encounter Details Date Type Department Care Team (Latest Contact Info) Description 09/08/2021 10:01 AM CDT - 09/08/2021 11:59 PM CDT Hospital Encounter [facility] [address] [facility] [place] [address] Elza Allan MD Discharge Disposition: Home or [...] 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 60 tablet 11 09/03/2021 09/29/2021 nitroglycerin 0.[address] 1 [...] st Contact Info) Description 04/25/2024 11:00 AM TRUCK DRIVER RUBBISH COLLECTOR Appointment [facility] [place] [address] Ti Bonilla MD [address] [place] [phone] 05/23/2024 3:30 PM TRUCK DRIVER RUBBISH COLLECTOR Office Visit [facility] [address] [place] [phone] Jyoti Escobar MD [address] [place] [phone] documented as of this encounter Procedures Procedure Name Priority Date/Time Associated Diagnosis Comments ECG 12-LEAD Routine 09/08/2021 10:10 AM CDT Paroxysmal atrial fibrillation (CMS/HCC HHS/HCC) documented in this encounter Results * ECG 12 lead (HOSPITAL PERFORMED ONLY) (09/08/2021 10:10 AM CDT) 09/08/2021 10:1 0 AM CDT Narrative [facility] [place] [facility] - 09/08/2021 12:27 PM CDT ? [facility] ?[address] [facility] [address] [place] ??[address] ? Test Date: ?2021-09-08 Pat Name: ? ELZA MCKEON ? Department: ?? 3 ? Room: ? Gender: ? Male ? Carbide Grinder: ?? : ?1960 ? Requested By: ELZA ALLAN Order Number: [id number] ? Reading : ?? Leonid Khan ? Measurements Intervals ?[place] ? Rate: ? 79 ? P: ?72 AK: ? 172 ?QRS: ?64 QRSD: ? 120 ?T: ?40 QT: ? 389 ? QTc: ?446 ? Interpretive Statements SINUS RHYTHM RIGHT BUNDLE BRANCH BLOCK Procedure Note Leonid Khan MD - 09/08/[address] [place] [address] Test Date: 2021-09-08 Pat Name: [facility] Department: 3 Room: Gender: Male Carbide Grinder: : 1960 Requested By: ELZA ALLAN Order Number: [id number] Jose Antonio OSMAN: Leonid Khan Measurements Intervals [place] Rate: 79 P: 72 AK: 172 QRS: 64 QRSD: 120 T: 40 QT: 389 QTc: 446 Interpretive Statements SINUS RHYTHM RIGHT BUNDLE BRANCH BLOCK us Elza Allan MD ECG ORDERABLES Final Resul t [facility] documented in this encounter Visit Diagnoses Diagnosis Paroxysmal atrial fibrillation (CMS/HCC HHS/HCC) Atrial fibrillation documented in this encounter Care Teams Fire Hydrant Mechanic Relationship Specialty Start Date End Date Vernon Mercedes MD [address] [place] [address] PCP - General FAMILY PRACTICE 10/27/15 12/02/21 Elza Allan MD [address] [place] [address] [employer] CARDIOVASCULAR DISEASE 08/19/16 Raul Santana MD [facility] [place] [address] CLINICAL CARDIAC ELECTROPHYSIOLOGY 06/16/17 Danny Blackwell MD [address] [place] [address] ORTHOPAEDIC SURGERY 05/01/19 Gayle Arce APRN, RAILROAD ENGINEER-C [address] [facility] [address] [place] [address] NURSE PRACTITIONER 03/03/20 documented as of this encounter
--- OUTSIDE RECORDS SUMMARY | 2024-04-23 04:24 | XMS_ITS | Encounter Summary ---
Author Organization [facility] Address [address] [place] [address]. 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 [address] [place] [address] [place] [address] Ti Bonilla MD [address] [place] [phone] 05/23/2024 3:30 PM SURVEILLANCE INVESTIGATOR Office Visit [facility] [place] [phone] Jyoti Escobar MD [address] [place] [phone] documented as of this encounter Visit Diagnoses Not on filedocumented in this encounter Care Teams Assessment Consultant Relationship Specialty Start Date End Date Ti Bonilla MD [address] [place] [phone] PCP - General FAMILY PRACTICE 12/03/21 Evaristo Allan MD [place] Full Stack Software Engineer CARDIOVASCULAR DISEASE 08/19/16 Raul Santana MD CLINICAL CARDIAC ELECTROPHYSIOLOGY 06/16/17 Danny Blackwell MD [address] [place] [address] ORTHOPAEDIC SURGERY 05/01/19 Gayle Arce, BARBARA, SUPERVISOR STITCHING DEPARTMENT-C [address] [facility] [address] [place] [phone] NURSE PRACTITIONER 03/03/20 documented as of this encounter
--- OUTSIDE RECORDS SUMMARY | 2024-04-23 04:24 | XMS_ITS | Encounter Summary ---
Author Organization [facility] Address [address] [place] [address]. [place], [place] [address] [place] [address] Care Team Providers Care Radiographer Name Role Phone Vernon Mercedes MD Primary Care Provider [phone] Evaristo Allan MD Unavailable Unavailabl Raul Duran MD Unavailable Unavailabl Danny Lopes MD Unavailable [phone] Gayle Arce APRN, TAKE UP SUPERVISOR-C Unavailable [phone] Reason for Referral * Imaging (Routine) - Closed Specialty Diagnoses / Procedures Referred By Contac t Referred To Contact RADIOLOGY Diagnoses Elevated liver function tests Procedures US ABD LIMITED Lora Ace FNP-BC [address] [place] [address] Phone: tel: fax: Referral ID Status Reason Start Date Expiration Date Visits Re quested Visits Authorized [id number] Closed 05/04/2021 06/04/2022 1 1 ACQUISITION MANAGER Reason for Visit * Imaging (Routine) - Closed Specialty Diagnoses / Procedures Referred By Contac t Referred To Contact RADIOLOGY Diagnoses Elevated liver function tests Procedures US ABD LIMITED Lora Ace FNP-BC [address] [place] [address] Phone: tel: fax: Referral ID Status Reason Start Date Expiration Date Visits Re quested Visits Authorized [id number] Closed 05/04/2021 06/04/2022 1 1 Encounter Details Date Type Department Care Team (Late st Contact Info) Description 06/18/2021 7:42 AM SITE ACQUISITION MANAGER - 06/18/2021 11:59 PM SITE ACQUISITION MANAGER Hospital Encounter [facility] [address] [place] [address] Jose Guadalupe Serna Lora David, 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 No / Unsure 06/18/2021 7:40 AM SITE ACQUISITION MANAGER documented as of this encounter Functional Status [...] Author Status No 10/15/2019 4:47 PM CDT Vicki, Kaylyn A, RN Active documented as of this encounter Mental Status * Because of a physical, mental, or emotional condition, do you have serious difficulty concentrating, remembering, or making decisions? Answer Entry Date Author Status No 10/15/2019 4:47 PM CDT Kaylyn Cohen RN Active documented in this encounter Medications [...] mouth 3 (three) times daily. 01/03/2020 09/02/2021 dabigatran (PRADAXA) 150 MG Cap Take 1 capsule (150 mg total) by mouth 2 (two) times daily. 180 capsule 1 12/28/2020 08/10/2021 famotidine 40 MG tablet Take 1 tablet (40 mg total) by mouth 2 (two) times daily. 12/06/2020 12/26/2023 furosemide 20 MG tablet Take 20 mg by mouth daily. 01/28/2017 08/28/2021 gabapentin 300 MG capsule Take 300 mg by mouth 3 (three) times daily. 02/06/2018 06/30/2023 LEVEMIR 100 UNIT/ML injection Inject 44 Units into the skin nightly at bedtime. 12/29/2017 06/30/2023 LEVEMIR FLEXTOUCH 100 UNIT/ML flextouch PEN 05/01/2021 11/03/2021 METOPROLOL SUCCINATE ER 100 MG 24 hr tablet TAKE ONE TABLET BY MOUTH TWICE A DAY 60 tablet 1 05/08/2021 08/10/2021 nitroglycerin 0.[address] 1 tablet (0.4 mg total) under the tongue every 5 (five) minutes as needed for Chest Pain. 25 tablet 1 01/04/2018 12/26/2023 spironolactone 25 MG tablet 25 mg daily. 04/30/2021 11/03/2021 tamsulosin 0.4 MG Cap Take 1 capsule (0.4 mg total) by mouth daily. 12/26/2023 documented as of this encounter Plan of Treatment Upcoming Encounters Date Type Department Care Team (Late st Contact Info) Description 04/25/2024 11:00 AM SITE ACQUISITION MANAGER Appointment [facility] [address] [place] [address] [place] [address] Ti Bonilla MD [address] [place] [phone] 05/23/2024 3:30 PM SITE ACQUISITION MANAGER Office Visit [facility] [place] [address] Jyoti Escobar MD [address] [place] [phone] documented as of this encounter Procedures Procedure Name Priority Date/Time Associated Diagnosis Comments US ABD LIMITED Routine 06/18/2021 7:50 AM SITE ACQUISITION MANAGER Elevated liver function tests documented in this encounter Results * US ABD LIMITED (06/18/2021 7:50 AM SITE ACQUISITION MANAGER) Anatomical Region Laterality Modality Abdomen Ultrasound 06/18/2021 3:25 PM SITE ACQUISITION MANAGER Impressions 06/18/2021 3:31 PM SITE ACQUISITION MANAGER IMPRESSION: Diffuse hepatic steatosis with focal fatty sparing adjacent to the gallbladder fossa. Ordered By: LORA SERNA Interpreted By: Gume Erwin DO, 06/18/2021 3:25 PM Narrative 06/18/2021 3:31 PM SITE ACQUISITION MANAGER Examination: Right upper quadrant ultrasound. Exam date: 06/18/2021. Clinical history: Elevated liver function tests. Comparison: CT abdomen and pelvis 05/25/2021 Technique: Sonographic evaluation of the right upper quadrant was performed utilizing grayscale, color Doppler, and spectral waveform analysis. Findings: PANCREAS: The pancreas is not visualized. LIVER: The liver demonstrates diffusely increased echogenicity, compatible with diffuse hepatic steatosis. Geographic area of relatively preserved echogenicity along the gallbladder fossa is compatible with focal fatty sparing as seen on recent CT. ??The hepatic veins demonstrate appropriate color Doppler flow.The portal vein is patent with appropriate waveform on spectral waveform analysis. No discrete mass is seen, however sensitivity for sonographic evaluation for focal liver masses is decreased in the setting of hepatic steatosis. GALLBLADDER: There is no gallbladder wall thickening, pericholecystic fluid, shadowing echogenic calculus, or mobile biliary sludge.Sonographic Whitehead sign is negative. BILIARY TREE: Sonographic evaluation over the stacia hepatis failed to demonstrate the common bile duct. INFERIOR VENA CAVA: No gross sonographic abnormality is appreciated on grayscale images of the visualized inferior vena cava. ?? Procedure Note Gume Erwin DO - 06/18/2021 Examination: Right upper quadrant ultrasound. Exam date: 06/18/2021. Clinical history: Elevated liver function tests. Comparison: CT abdomen and pelvis 05/25/2021 Technique: Sonographic evaluation of the right upper quadrant wasperformed utilizing grayscale, color Doppler, and spectral waveformanalysis. Findings: PANCREAS: The pancreas is not visualized. LIVER: The liver demonstrates diffusely increased echogenicity, compatible withdiffuse hepatic steatosis. Geographic area of relatively preservedechogenicity along the gallbladder fossa is compatible with focal fattysparing as seen on recent CT. The hepatic veins demonstrate appropriatecolor Doppler flow.The portal vein is patent with appropriate waveform onspectral waveform analysis. No discrete mass is seen, however sensitivityfor sonographic evaluation for focal liver masses is decreased in thesetting of hepatic steatosis. GALLBLADDER: There is no gallbladder wall thickening, pericholecystic fluid, shadowingechogenic calculus, or mobile biliary sludge.Sonographic Whitehead sign isnegative. BILIARY TREE: Sonographic evaluation over the stacia hepatis failed to demonstrate thecommon bile duct. INFERIOR VENA CAVA: No gross sonographic abnormality is appreciated on grayscale images of thevisualized inferior vena cava. IMPRESSION: Diffuse hepatic steatosis with focal fatty sparing adjacent to thegallbladder fossa. Ordered By: LORA SERNA Interpreted By: Gume Erwin DO, 06/18/2021 3:25 PM Lora Serna UNISAW OPERATOR- ULTRASOUND Final Result documented in this encounter Visit Diagnoses Diagnosis Elevated liver function tests Other abnormal blood chemistry documented in this encounter Care Teams Radiographer Relationship Specialty Start Date End Date Vernon Merceeds MD [address] [place] [address] PCP - General FAMILY PRACTICE 10/27/15 12/02/21 Evaristo Allan MD [facility] [place] [address] [place] Wind Technician CARDIOVASCULAR DISEASE 08/19/16 Raul Santana MD [facility] [place] [address] CLINICAL CARDIAC ELECTROPHYSIOLOGY 06/16/17 Danny Blackwell MD [address] [place] [address] ORTHOPAEDIC SURGERY 05/01/19 Gayle Arce, CORPORATE WELLNESS COORDINATOR, TAKE UP SUPERVISOR-C [address] [facility] [address] [place] [address] NURSE PRACTITIONER 03/03/20 documented as of this encounter
--- OUTSIDE RECORDS SUMMARY | 2024-04-23 04:24 | XMS_ITS | Encounter Summary ---
Author Organization [facility] Address [address] [place] [address]. [place], [place] [address] [place] [address] Care Team Providers Care Bullet Assembly Press Operator Name Role Phone Ton Delgado MD Primary Care Provider [phone] Evaristo Allan MD Unavailable UnavailRaul Suresh MD Unavailable Unavailabl Danny Lopes MD Unavailable [phone] Gayle Arce APRN, INTERNET AND E BUSINESS PROJECT MANAGER-C Unavailable [phone] Reason for Visit * Reason Comments Follow Up Encounter Details Date Type Department Care Team (Late st Contact Info) Description 08/27/2021 11:15 AM CDT Office Visit [facility] [place] [address] Evaristo Allan MD Follow Up Social History Tobacco Use Types [...] 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 No / Unsure 11/17/2021 6:05 AM CDT documented as of this encounter Last Filed Vital Signs Vital Sign Reading Time Taken Comments Blood Pressure 151/89 08/27/2021 11:15 AM CDT Pulse 96 08/27/2021 11:15 AM CDT Temperature - - Respiratory Rate 20 08/27/2021 11:15 AM CDT Oxygen Saturation 98% 08/27/2021 11:15 AM CDT Inhaled Oxygen Concentration - - Weight 128.4 kg (283 lb) 08/27/2021 11:15 AM CDT Height 180.3 cm (5' 11 ) 08/27/2021 11:15 AM CDT Body Mass Index 39.47 08/27/2021 11:15 AM CDT documented in this encounter Functional [...] Cohen RN Active documented in this encounter Patient Instructions * Patient Instructions* Nalini Orlando RN - 08/27/2021 11:15 AM CDT INCREASE: Lasix (furosemide) 20 mg- take 2 tablets daily Metoprolol succinate 100 mg- take 1 1/2 tablets twice a day documented in this encounter Progress Notes * Evaristo Allan MD - 08/27/2021 11:15 AM CDT Reason for Visit: Follow Up History of Present Illness: Recommendations and Plan: Medications: Current Outpatient Medications: ??? amitriptyline 100 MG tablet, Take 100 mg by mouth 2 (two) times daily. , Disp: , Rfl: ??? aspirin EC 81 MG tablet, Take 81 mg by mouth daily. , Disp: 100 tablet, Rfl: 0 ??? atorvastatin 40 MG tablet, Take 40 mg by mouth nightly at bedtime. , Disp: , Rfl: ??? carbidopa-levodopa 25-100 MG tablet, Take 1 tablet by mouth 3 (three) times daily. , Disp: , Rfl: ??? famotidine 40 MG tablet, Take 40 mg by mouth daily., Disp: , Rfl: ??? furosemide 20 MG [...] Disp: , Rfl: ??? metoprolol succinate ER 100 MG 24 hr tablet, Take 1.5 tablets (150 mg total) by mouth 2 (two) times daily., Disp: 90 tablet, Rfl: 6 ??? nitroglycerin 0.4 MG SL tablet, Place [...] DAY, Disp: 180 capsule, Rfl: 1 ??? spironolactone 25 MG tablet, 25 mg daily., Disp: , Rfl: ??? tamsulosin 0.4 MG Cap, Take 0.4 mg by mouth daily., Disp: , Rfl: ??? traMADol 50 MG tablet, Take 1 tablet by mouth 3 (three) times a day. , Disp: , Rfl: ??? LEVEMIR FLEXTOUCH 100 UNIT/ML flextouch PEN, , Disp: , Rfl: ??? TRUEPLUS PEN [...] CATHETERIZATION 01/04/2018 occluded prox RCA w/well developed liew-xi-huseg collaterals lvef 55-60% ??? CARDIAC CATHETERIZATION 11/13/2018 ??? FRACTURE SURGERY ??? 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 HERNIA REPAIR ??? JOINT REPLACEMENT ??? KNEE ARTHROPLASTY Bilateral ??? LITHOTRIPSY ??? XA ABLATION 05/19/2016 ??? XA CORONARY INTERVENTION 03/24/2018 GOLF CADDIE PCI-mid RCA Social History Tobacco Use ??? [...] MGF ??? MGM Review of Systems Constitutional: Negative for recent unintentional weight gain, recent unintentional weight loss andnew or significant fatigue. HENT: Negative for new or significant hearing loss. Eyes: Negative for blurred vision and double vision. Respiratory: Negative for cough, new or significant shortness of breath and snoring. Cardiovascular: See HPI. Positive for leg swelling. Gastrointestinal: Negative for blood in stool and melena. Genitourinary: Negative for dysuria. Musculoskeletal: Negative for myalgias and new or worsening joint stiffness/pain. Skin: Negative for rash. Neurological: Negative for tingling/numbness and focal weakness. Endo/Heme/Allergies: Negative for new or significant bruising/bleeding and polydipsia. Psychiatric/Behavioral: Negative for depression and new or significant memory loss. Vitals: 08/27/21 1115 BP: (!) 151/89 BP Location: Right arm Pulse: 96 Weight: 128.4 kg (283 lb) Height: 5' 11 (1.803 m) Body mass index is 39.47 kg/m??. Cardiac Exam Rate/Rhythm: Normal rate and regular rhythm. PMI: PMI is not displaced. Pulses: Normal pulses. Femoral pulses are 2+ on the right side and 2+ on the left side. Heart Sounds: Normal heart sounds. Normal S1 sounds. Normal S2 sounds. No gallop present. No S3. NoS4. Murmurs: Physical Exam Constitutional: No distress. Healthy Appearance. HENT: Oropharynx clear. Eyes: Pupils equal, round, and reactive to light. Conjunctivae normal. Neck: Neck supple. No JVD. Abdomen: Abdomen soft. Bowel sounds normal. No tenderness. No mass. No hepatomegaly. No splenomegaly. Abdominal aorta not palpably enlarged. No abdominal bruit present. Pulmonary: Effort normal. Breath sounds normal. Skin: No rash. No cyanosis. No clubbing. No xanthoma. Musculoskeletal: No kyphosis. Normal ROM. Neurological: Alert. Oriented x 3. Appropriate mood and affect. Normal motor skills. Normal gait. Comments: Edema bilaterally The documentation for the above exam was created using a template entered by ancillary staff however the physical exam was completed entirely by the provider responsible for this visit. The physical exam documentation was reviewed and modified by the provider to reflect his/her findings. Diagnoses/Impression: No diagnosis found. Referring Provider: Ton Delgado MD PCP: TON DELGADO MD * Evaristo Allan MD - 08/27/2021 12:00 AM CDT HISTORY OF PRESENT ILLNESS: Mr. Zelaya is a 61-year-old gentleman who is seen in the cardiology clinic today for his 6-month followup visit. Mr. Zelaya has a history of coronary artery disease, status post GOLF CADDIE PCI on 03/24/2018; atrial fibrillation, status post ablation in 2016; hypertension; hyperlipidemia; diabetes mellitus; and sleep apnea. Mr. Zelaya relates that he has been having some difficulties with chest discomfort. This chest discomfort radiates to his left arm around his elbow. It can occur at any time and usually lasts around 1minute. He has also noticed some dyspnea on exertion. A review of the records show that Mr. Zelaya underwent a Regadenoson nuclear stress test on 01/13/2021 and this was felt to show no evidence of ongoing myocardial ischemia. Mr. Zelaya denies any overt symptoms of congestive heart failure such as paroxysmal nocturnal dyspnea or orthopnea. He does have some bilateral pedal edema, however. He also reminded me during the clinic visit that he uses a CPAP machine nocturnally for his diagnosed obstructive sleep apnea. He denies any syncope but has occasional lightheadedness. He has had no recent symptoms to suggest a TIA orCVA. He is tolerating his present medications well. Evaluation during the clinic visit included an EKG which confirmed the presence of apparent atrial flutter with a heart rate of 97 beats per minute. A right bundle-branch block pattern was noted. Laboratory from May of this year showed a serum potassium of 4.3 with a BUN of 18 and creatinine 1.21. Liver function tests were unremarkable with the exception of a low serum albumin of 3.1. RECOMMENDATIONS AND PLAN: Mr. Zelaya presently seems to suffer from some new- onset anginal-type chest pain and a degree of dyspnea on exertion. His EKG in the clinic today confirmed the presence of atrial flutter and I suspect that this is contributing to his symptom complex. Mr. Zelaya does relate that he has been hospitalized on 2 separate occasions for atrial fibrillation in the past. Further evaluation and treatment is warranted. Aggressive cardiac risk factor modification will be important in Mr. Zelaya' correction care. I have recommended the following to Mr. Zelaya: 1. Increase Metoprolol XL dosing to 150 mg p.o. b.i.d. 2. Increase Lasix dosing to 40 mg p.o. q.a.m. 3. Lipid management per Dr. Delgado. A reasonable goal would be to obtain an LDL cholesterol fraction of 70 or less associated with a normal total cholesterol to HDL cholesterol ratio and serum triglyceride level. 4. I have encouraged Mr. Zelaya to use his glucometer for followup of his serum glucose levels. I have asked him to share these with Dr. Delgado, so that improved management of his diabetes mellitus can be pursued. 5. I have given Mr. Zelaya clearance to undergo his colonoscopy off of the Pradaxa anticoagulation. This should be pursued if it is felt to be necessary at this time. 6. Proceed with DCCV of the atrial flutter once Mr. Zelaya has been adequately anticoagulated for 1 month. Given his apparent recurrent atrial rhythms in the past, he may eventually require ablation for his atrial flutter. 7. Annual followup in the cardiology clinic. I have encouraged Mr. Zelaya to contact me in the meantime should he have any questions or problems. #[id number] /JUAN CARLOS documented in this encounter Plan of Treatment Upcoming Encounters Date Type Department Care Team (Late st Contact Info) Description 04/25/2024 11:00 AM LOT BOSS Appointment [facility] [address] [place] [address] [place] [address] Ti Bonilla MD [address] [place] [address] 05/23/2024 3:30 PM LOT BOSS Office Visit [facility] [address] [place] [address] Jyoti Escobar MD [address] [place] [address] documented as of this encounter Visit Diagnoses Diagnosis Atrial flutter, unspecified type ([facility] H[facility])- Primary Paroxysmal atrial fibrillation ([facility]) Atrial fibrillation S/P ablation of atrial fibrillation Other postprocedural status Coronary artery disease involving [place] coronary artery of [place] heart, unspecified whether angina present S/P coronary artery stent placement Postsurgical percutaneous transluminal coronary angioplasty status Essential hypertension Unspecified essential hypertension Hyperlipidemia, unspecified hyperlipidemia type Obstructive sleep apnea Obstructive sleep apnea (adult) (pediatric) documented in this encounter Additional Health Concerns Infection Onset Date Last Indicated Resolved Time COVID-19 Rule Out 08/31/2021 08/31/2021 09/01/2021 8:03 PM CDT COVID-19 Rule Out 11/14/2021 11/14/2021 11/14/2021 6:17 PM CDT documented as of this encounter Care Teams Bullet Assembly Press Operator Relationship Specialty Start Date End Date Ton Delgado MD [address] [place] [address] PCP - General FAMILY PRACTICE 10/27/15 12/02/21 Evaristo Allan MD [address] [place] [address] [place] Bundler CARDIOVASCULAR DISEASE 08/19/16 [place] [address] CLINICAL CARDIAC ELECTROPHYSIOLOGY 06/16/17 Danny Blackwell MD [address] [place], [place] [phone] ORTHOPAEDIC SURGERY 05/01/19 Gayle Arce APRN, INTERNET AND E BUSINESS PROJECT MANAGER-C [address] [facility] [address] [place] [phone] NURSE PRACTITIONER 03/03/20 documented as of this encounter
--- OUTSIDE RECORDS SUMMARY | 2024-04-23 04:24 | XMS_ITS | Encounter Summary ---
Author Organization [facility] Address [address] [place] [address]. [place] [address] [place] [address] Care Team Providers Care Body Builder Apprentice Name Role Phone Vernon Mercedes MD Primary Care Provider [phone] Evaristo Allan MD Unavailable UnavailRaul Suresh MD Unavailable Unavailabl Danny Lopes MD Unavailable [phone] Gayle Arce APRN, EXTENDED INSURANCE CLERK-C Unavailable Reason for Visit * Reason Onset Date Comments Problem 09/24/2021 Blood pressure Repeat Call 09/24/2021 Encounter Details Date Type Department Care Team (Late st Contact Info) Description 09/24/2021 Telephone [facility] [address] [place] [address] Evaristo Allan MD Problem (Blood pressure/); Repeat Call Social History Tobacco Use Types Packs/Day [...] 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 Allan: decrease metoprolol succinate to 100 mg daily Phoned patient, made aware of above instructions Instructed to continue to monitor BP and call in 1 week with an update Expressed understanding and agrees to this plan * Loren Iverson RN - 09/29/2021 1:32 PM CDT Phoned patient, continues to c/o of low blood pressure in the evenings and feels drunk,equillibrium is off Reports BP in evenin/59,86/54,96/66 Reports HR is in the 70's regular Am BP 103/62 * Emma Zepeda - 09/29/2021 11:47 AM CDT April, with Evaristo in the background, called today with the same complaints as 09/24/21. They are requesting a call back today, 09/29/21, to [phone]. I did explain Dr. Allan and Loren are seeing patients all day but I would send this message as a high priority. * Loren Iverson RN - 09/24/2021 2:43 PM CDT Returned call to patient. Concerned with his BP going low in the evening and then my heart races Reports BP (taken 7-8 pm) 90/58, 91/59 Reports am BP readings: 95/61,103/67,130/75,116/71 States his legs are still swollen Taking furosemide 40 mg daily; metoprolol succinate [address] a day Dr. Allan in [facility] clinic today Will discuss above with Dr. Allan tomorrow and phone patient back with any other recommendations. Expressed understanding and agrees with this plan * Emma Zepeda - 09/24/2021 12:34 PM CDT PCCLVOICEMAILMESSAGEPCCL VOICE MAIL VM DATE/TIME:09/24/21 CALLER: Patient #: [phone] PROVIDER/NEW PT: Jerrell REASON FOR CALL: I want to tell the nurse what is going on with my blood pressure . REQUEST HANDLED AND HOW: IF NOT HANDLED, ENCOUNTER NOTE SENT TO: Message sent to [facility] documented in this encounter Plan of Treatment Upcoming Encounters Date Type Department Care Team (Late st Contact Info) Description 04/25/2024 11:00 AM T[address]GBOAT ENGINEER Appointment [facility] [address] [place] [address] Ti Bonilla MD [address] [place] [address] 05/23/2024 3:30 PM TUGBOAT ENGINEER Office Visit [facility] [address] [place] [address] Jyoti Escobar MD [address] [place] [address] documented as of this encounter Visit Diagnoses Not on filedocumented in this encounter Care Teams Body Builder Apprentice Relationship Specialty Start Date End Date Vernon Mercedes MD [address] [place] [phone] PCP - General FAMILY PRACTICE 10/27/15 12/02/21 Evaristo Allan MD [address] [place] [address] [place] Forklift Supervisor CARDIOVASCULAR DISEASE 08/19/16 Raul Santana MD [address] [place] [address] CLINICAL CARDIAC ELECTROPHYSIOLOGY 06/16/17 Danny Blackwell MD [address] [place] [address] ORTHOPAEDIC SURGERY 05/01/19 Gayle Arce APRN, EXTENDED INSURANCE CLERK-C [address] [facility] [address] [place] [address] NURSE PRACTITIONER 03/03/20 documented as of this encounter
--- OUTSIDE RECORDS SUMMARY | 2024-04-23 04:24 | XMS_ITS | Encounter Summary ---
Author Organization [facility] Address [address] [place] [address]. [place], [place] [address] [place] [address] Care Team Providers Care Tile Decorator Name Role Phone Vernon Mercedes MD Primary Care Provider [phone] Evaristo Allan MD Unavailable UnavailRaul Suresh MD Unavailable Unavailabl Danny Lopes MD Unavailable [phone] Gayle Arce APRN, TRANSFORMER SHOP SUPERVISOR-C Unavailable [phone] Encounter Details Date Type Department Care Team (Latest Contact Info) Description 08/27/2021 Travel Social History Tobacco Use Types Packs/Day [...] st Contact Info) Description 04/25/2024 11:00 AM PROBATION AGENT Appointment [facility] [address] [place] [address] Ti Bonilla MD [address] [place] [phone] 05/23/2024 3:30 PM PROBATION AGENT Office Visit [facility] [address] [place] [address] Jyoti Escobar MD [address] [place] [address] documented as of this encounter Visit Diagnoses Not on filedocumented in this encounter Care Teams Tile Decorator Relationship Specialty Start Date End Date Vernno Mercedes MD [address] [place] [address] PCP - General FAMILY PRACTICE 10/27/15 12/02/21 Evaristo Allan MD [address] [place] [address] [place] Software Recruiter CARDIOVASCULAR DISEASE 08/19/16 Raul Santana MD [address] [place] [address] CLINICAL CARDIAC ELECTROPHYSIOLOGY 06/16/17 Danny Blackwell MD [address] [place] [address] ORTHOPAEDIC SURGERY 05/01/19 Gayle Arce, BARBARA, TRANSFORMER SHOP SUPERVISOR-C [address] [facility] [address] [place] [address] NURSE PRACTITIONER 03/03/20 documented as of this encounter
--- OUTSIDE RECORDS SUMMARY | 2024-04-23 04:24 | XMS_ITS | Encounter Summary ---
Author Organization [facility] Address [address] [place] [address]. 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 Not on [...] st Contact Info) Description 04/25/2024 11:00 AM RFID MANAGER Appointment [facility] [place] [address] Ti Bonilla MD [address] [place] [phone] 05/23/2024 3:30 PM RFID MANAGER Office Visit [facility] [address] [place] [address] Jyoti Escobar MD [address] [place] [phone] documented as of this encounter Results * ECG 12 lead (HOSPITAL PERFORMED ONLY) (09/08/2021 10:10 AM CDT) 09/08/2021 10:1 0 AM CDT Narrative [facility] - 09/08/2021 12:27 PM CDT ? [facility] ?[address] [place], [place] ??[address] ? Test Date: ?2021-09-08 Pat Name: ? ELZA MCKEON ? Department: ?? 3 ? Room: ? Gender: ? Male ? Production Weigher: ?? : ?1960 ? Requested By: ELZA FLOYD Order Number: [id number] ? Reading MD: ?? Leonid Khan ? Measurements Intervals ?Tensed ? Rate: ? 79 ? P: ?72 [place]: ? 172 ?QRS: ?64 QRSD: ? 120 ?T: ?40 QT: ? 389 ? QTc: ?446 ? Interpretive Statements SINUS RHYTHM RIGHT BUNDLE BRANCH BLOCK Procedure Note Leonid Khan MD - 09/08/2021 [facility] [address] [facility] [place] [address] Test Date: 2021-09-08 Pat Name: [facility] Department: 3 Room: Gender: Male Production Weigher: : 1960 Requested By: [facility] Order Number: [id number] Jose Antonio MD: Leonid Khan Measurements Intervals Tensed Rate: 79 P: 72 [place]: 172 QRS: 64 QRSD: 120 T: 40 QT: 389 QTc: 446 Interpretive Statements SINUS RHYTHM RIGHT BUNDLE BRANCH BLOCK us Elza Floyd MD ECG ORDERABLES Final Resul t [facility] documented in this encounter Visit Diagnoses Diagnosis Paroxysmal atrial fibrillation (CMS/HCC HHS/HCC)- Primary Atrial fibrillation Paroxysmal atrial fibrillation (CMS/HCC HHS/HCC) Atrial fibrillation documented in this encounter Care Teams Associate Media Planner Relationship Specialty Start Date End Date Vernon Mercedes MD [address] [place] [address] PCP - General FAMILY PRACTICE 10/27/15 12/02/21 Elza Floyd MD [address] [place] [address] [place] [employer] Molder CARDIOVASCULAR DISEASE 08/19/16 Raul Santana MD [address] [place] [address] CLINICAL CARDIAC ELECTROPHYSIOLOGY 06/16/17 Danny Blackwell MD [address] [place] [address] ORTHOPAEDIC SURGERY 05/01/19 Gayle Arce, MEDIA PROFESSIONAL, METAL TRADES INSTRUCTOR-C [address] [facility] [address] [place] [address] NURSE PRACTITIONER 03/03/20 documented as of this encounter
--- OUTSIDE RECORDS SUMMARY | 2024-04-23 04:24 | XMS_ITS | Encounter Summary ---
Author Organization [facility] Address [address] [place] [address]. 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 Not on [...] st Contact Info) Description 04/25/2024 11:00 AM BIT SHARPENER Appointment [facility] [address] [place] [address] Ti Bonilla MD [address] [place] [phone] 05/23/2024 3:30 PM BIT SHARPENER Office Visit [facility] [address] [place] [address] Jyoti Escobar MD [address] [place] [address] documented as of this encounter Visit Diagnoses Not on filedocumented in this encounter Care Teams Regional Sales Director Relationship Specialty Start Date End Date Vernon Mercedes MD [address] [place] [address] PCP - General FAMILY PRACTICE 10/27/15 12/02/21 Evaristo Allan MD [address] [place] [address] [place] [address] CARDIOVASCULAR DISEASE 08/19/16 Raul Santana MD [address] [place] [address] CLINICAL CARDIAC ELECTROPHYSIOLOGY 06/16/17 Danny Blackwell MD [address] [place] [address] ORTHOPAEDIC SURGERY 05/01/19 Gayle Arce, BARBARA, SAMPLE DISPLAY PREPARER-C [address] [facility] [address] [place] [address] NURSE PRACTITIONER 03/03/20 documented as of this encounter
--- OUTSIDE RECORDS SUMMARY | 2024-04-23 04:24 | XMS_ITS | Encounter Summary ---
Author Organization [facility] Address [address] [place] [address]. [place] [address] [place] [address] Care Team Providers Care Leak Gang Supervisor Name Role Phone Vernon Mercedes MD Primary Care Provider [phone] Evaristo Allan MD Unavailable Unavailabl Raul Duran MD Unavailable Unavailabl Danny Lopes MD Unavailable [phone] Gayle Arce APRN, PACKAGING MATERIALS INSPECTOR-C Unavailable Reason for Visit * Reason Onset Date Comments Question 11/12/2021 DEXCOM G6 Encounter Details Date Type Department Care Team ([facility] Contact Info) Description 11/12/2021 [facility]phone [facility] [place] [facility] [address] [place] [address] Joshua Yin MD [address] [place] [address] Question (DEXCOM G6) Social History Tobacco Use Types Packs/Day Years [...] documented in this encounter Progress Notes * Naldo Oro RN - 11/16/2021 2:40 PM CDT Voicemail received at 1425. Kadie this is Evaristo Zelaya, just returning your phone call. Thank you. Returned call to patient. Informed the patient there should not be a problem with him wearing his Dexcom as documented by SHRAVAN Engle in previous note. Patient v/u and had no further questions. * Kadie Gunter LPN - 11/16/2021 1:47 PM CDT Returned call to April/MIRZA. No answer, LMTRC. If/when call is returned, please let patient know that there should not be a problem with him wearing his Dexcom. * Emma Zepeda - 11/12/2021 4:19 PM CDT April, spouse, called to ask if Evaristo can wear his DEXCOM G6 during his ablation? The DEXCOM is his blood sugar monitoring system so that he doesn't have to prick his fingers. The reason she wants to know is that it is time for him to put on a new one and they don't want to put the new one on onlyto have to take it off for surgery because he can't put them back on again. April can be reached [phone]. documented in this encounter Plan of Treatment Upcoming Encounters Date Type Department Care Team (Late st Contact Info) Description 04/25/2024 11:00 AM TOW MOTOR OPERATOR Appointment [facility] [address] [place] [address] Ti Bonilla MD [address] [place] [phone] 05/23/2024 3:30 PM TOW MOTOR OPERATOR Office Visit [facility] [address] [place] [phone] Jyoti Escobar MD [address] [place] [address] documented as of this encounter Visit Diagnoses Not on filedocumented in this encounter Additional Health Concerns Infection Onset Date Last Indicated Resolved Time COVID-19 Rule Out 11/14/2021 11/14/2021 11/14/2021 6:17 PM CDT documented as of this encounter Care Teams Leak Gang Supervisor Relationship Specialty Start Date End Date Vernon Mercedes MD [address] [place] [phone] PCP - General FAMILY PRACTICE 10/27/15 12/02/21 Evaristo Allan MD [address] [facility] [place] [address] [place] Heat Treat Puller CARDIOVASCULAR DISEASE 08/19/16 Raul Santana MD [address] [place] [address] CLINICAL CARDIAC ELECTROPHYSIOLOGY 06/16/17 Danny Blackwell MD [address] [place] [address] ORTHOPAEDIC SURGERY 05/01/19 Gayle Arce, BARBARA, PACKAGING MATERIALS INSPECTOR-C [address] [facility] [address] [place] [address] NURSE PRACTITIONER 03/03/20 documented as of this encounter
--- OUTSIDE RECORDS SUMMARY | 2024-04-23 04:24 | XMS_ITS | Encounter Summary ---
Author Organization [facility] Address [address] [place] [address]. [place] [address] [place] [address] Care Team Providers Care Winch Stripper Name Role Phone Vernon Mercedes MD Primary Care Provider [phone] Evaristo Allan MD Unavailable Unavailabl Raul Duran MD Unavailable Unavailabl Danny Lopes MD Unavailable [phone] Gayle Arce APRN, HEALTH PROMOTION EDUCATOR-C Unavailable Reason for Visit * Reason Onset Date Comments Reschedule 08/05/2021 No show Encounter Details Date Type Department Care Team (Late st Contact Info) Description 08/05/2021 [facility]phone [facility] [address] [place] [address] Evaristo Allan MD Reschedule (No show) Social History Tobacco Use Types Packs/Day Years [...] 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 Not on [...] Contact Info) Description 04/25/2024 11:00 AM NATIONAL SALES EXECUTIVE Appointment [facility] [address] [place] [address] Ti Bonilla MD [address] [place] [phone] 05/23/2024 3:30 PM NATIONAL SALES EXECUTIVE Office [facility] [address] [place] [address] Jyoti Escobar MD [address] [place] [address] documented as of this encounter Visit Diagnoses Not on filedocumented in this encounter Care Teams Winch Stripper Relationship Specialty Start Date End Date Vernon Mercedes MD [address] [place] [address] PCP - General FAMILY PRACTICE 10/27/15 12/02/21 Evaristo Allan MD [address] [place] [place] [address] [place] Swimmer CARDIOVASCULAR DISEASE 08/19/16 Raul Santana MD [address] [place] [address] CLINICAL CARDIAC ELECTROPHYSIOLOGY 06/16/17 Danny Blackwell MD [address] [place] [address] ORTHOPAEDIC SURGERY 05/01/19 Gayle Arce, BUSINESS LAW PROFESSOR, HEALTH PROMOTION EDUCATOR-C [address] [facility] [address] [place] [phone] NURSE PRACTITIONER 03/03/20 documented as of this encounter
--- OUTSIDE RECORDS SUMMARY | 2024-04-23 04:24 | XMS_ITS | Encounter Summary ---
Author Organization [facility] Address [address] [place] [address]. 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 Not on [...] st Contact Info) Description 04/25/2024 11:00 AM INTERVENTIONAL TECH Appointment [facility] [address] [place] [address] Ti Bonilla MD [address] [place] [phone] 05/23/2024 3:30 PM INTERVENTIONAL TECH Office Visit [facility] [address] [place] [phone] Jyoti Escobar MD [address] [place] [address] documented as of this encounter Visit Diagnoses Not on filedocumented in this encounter Additional Health Concerns Infection Onset Date Last Indicated Resolved Time COVID-19 Rule Out 08/31/2021 08/31/2021 09/01/2021 8:03 PM CDT documented as of this encounter Care Teams Distillery Manager Relationship Specialty Start Date End Date Vernon Mercedes MD [address] [place] [address] PCP - General FAMILY PRACTICE 10/27/15 12/02/21 Evaristo Allan MD [address] [place] [address] [place] Principal Process Engineer CARDIOVASCULAR DISEASE 08/19/16 Raul Santana MD [address] [place] [address] CLINICAL CARDIAC ELECTROPHYSIOLOGY 06/16/17 Danny Blackwell MD [address] [place] [address] ORTHOPAEDIC SURGERY 05/01/19 Gayle Arce, BARBARA, SACK FILLER-C [address] [facility] [address] [place] [address] NURSE PRACTITIONER 03/03/20 documented as of this encounter
--- OUTSIDE RECORDS SUMMARY | 2024-04-23 04:24 | XMS_ITS | Encounter Summary ---
Author Organization [facility] Address [address] [place] [address]. [place] [address] [place] [address] Care Team Providers Care Supervisor Hydrochloric Area Name Role Phone Vernon Mercedes MD Primary Care Provider [phone] Evaristo Allan MD Unavailable UnavailRaul Suresh MD Unavailable Unavailabl Danny Lopes MD Unavailable [phone] Gayle Arce APRN, HYDROTREATER OPERATOR-C Unavailable Encounter Details Date Type Department Care Team (Latest Contact Info) Description 11/14/2021 8:17 AM CDT - 11/14/2021 11:59 PM CDT Hospital Encounter [facility] [address] [facility] [address] Joshua Yin MD [address] [place] [address] Discharge Disposition: Home or Self [...] 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 Not on [...] st Contact Info) Description 04/25/2024 11:00 AM EIGHT SECTION BLOWER Appointment [facility] [address] [place] [address] Ti Bonilla MD [address] [place] [phone] 05/23/2024 3:30 PM EIGHT SECTION BLOWER Office Visit [facility] [address] [place] [phone] Jyoti Escobar MD [address] [place] [address] documented as of this encounter Procedures Procedure Name Priority Date/Time Associated Diagnosis Comments CORONAVIRUS (COVID 19) Routine 11/14/2021 8:50 AM CDT BASIC METABOLIC PANEL Routine 11/14/2021 8:48 AM CDT Anticoagulated CBC W/DIFF AUTOMATED Routine 11/14/2021 8:48 AM CDT Anticoagulated documented in this encounter Results * CORONAVIRUS (COVID 19) (11/14/2021 8:50 AM CDT) SPEC DESCRIPTION NASAL 11/15/19 10:23 AM CDT [facility] CORONAVIRUS SARS COV 2 PCR (RESP) NEGATIVE NEGATIVE 11/14/2021 6:17 PM CDT [facility] Comment: THE SARS-CoV-2 TEST HAS BEEN AUTHORIZED BY THE FDA UNDER AN EUA FOR USE BY AUTHORIZED LABORATORIES. PERFORMED BY NUCLEIC ACID AMPLIFICATION PCR FIRST TEST NO 11/14/2021 10:23 AM CDT [facility] EMPLOYED IN HEALTHCARE NO 11/14/2021 10:23 AM CDT [facility] SYMPTOMATIC DEFINED BY CDC NO 11/14/2021 10:23 AM CDT [facility] HOSPITALIZATION STATUS NO 11/14/2021 10:23 AM CDT [facility] RESIDENT OF [facility] CARE NO 11/14/2021 10:23 AM CDT [facility] 11/14/2021 8:50 AM CDT Joshua Yin MD MICROBIOLOGY - GENERAL ORDERABLE S Final Result [facility] [address] [place] [address], [place] [phone] [facility] [address] [place] [address], [place] [phone] * (ABNORMAL) CBC W/DIFF AUTOMATED (11/14/2021 8:48 AM CDT) WBC 6.5 4.0 - 10.8 x10'3/uL 11/14/2021 9:02 AM CDT [facility] RBC 4.22(L) 4.50 - 6.10 x10'6/uL 11/14/2021 9:02 AM CDT [facility] HGB 11.3(L) 13.0 - 18.0 G/DL 11/14/2021 9:02 AM CDT [facility] HCT 37.1 37.0 - 52.0 % 11/14/2021 9:02 AM CDT [facility] MCV 87.9 78.0 - 100.0 FL 11/14/2021 9:02 AM CDT [facility] MCH 26.8(L) 27.0 - 31.0 PG 11/14/2021 9:02 AM CDT [facility] MCHC 30.5(L) 33.0 - 36.0 G/DL 11/14/2021 9:02 AM CDT [facility] RDW 15.9(H) 11.5 - 14.5 % 11/14/2021 9:02 AM CDT [facility] PLT 262 150 - 350 x10'3/uL 11/14/2021 9:02 AM CDT [facility] MPV 11.1(H) 7.4 - 10.4 FL 11/14/2021 9:02 AM CDT [facility] DIFFERENTIAL COMMENT NORMAL REFERENCE RANGE NOT ESTABLISHED FOR THE PROPORTIONAL LEUKOCYTE DIFFERENTIAL. 11/14/2021 9:02 AM CDT [facility] SEG NEUTROPHILS 57.3 % 9:02 AM CDT [facility] LYMPHOCYTES 26.9 % 11/14/2021 9:02 AM CDT [facility] MONOCYTES 11.3 % 11/14/2021 9:02 AM CDT [facility] EOSINOPHILS 2.8 % 11/14/2021 9:02 AM CDT [facility] BASOPHILS 1.4 % 11/14/2021 9:02 AM CDT [facility] IMMATURE GRANS % 0.3 % 11/15/19 9:02 AM CDT [facility] NRBC 0.0 % 11/14/2021 9:02 AM CDT [facility] ABS. NEUTROPHILS 3.75 1.60 - 8.30 x10'3/uL 11/14/2021 9:02 AM CDT [facility] ABS. LYMPHOCYTES 1.76 0.80 - 4.70 x10'3/uL 11/14/2021 9:02 AM CDT [facility] ABS. MONOCYTES 0.74 0.00 - 1.50 x10'3/uL 11/14/2021 9:02 AM CDT [facility] ABS. EOSINOPHILS 0.18 0.00 - 0.40 x10'3/uL 11/14/2021 9:02 AM CDT [facility] ABS. BASOPHILS 0.09 0.00 - 0.20 x10'3/uL 11/14/2021 9:02 AM CDT [facility] ABS. IMMATURE GRANULOCYTES 0.02 0.00 - 0.03 x10'3/uL 11/14/2021 9:02 AM CDT [facility] ABS. NUCLEATED RBC'S 0.00 0.00 x10'3/uL 11/14/2021 9:02 AM CDT [facility] 11/14/2021 8:48 AM CDT Joshua Yin MD LABORATORY Final Result [facility] [address] [place] [address], * (ABNORMAL) BASIC METABOLIC PANEL (11/14/2021 8:48 AM CDT) SODIUM S/P/B 140 136 - 145 MMOL/L 11/14/2021 9:17 AM CDT [facility] POTASSIUM S/P/B 4.2 3.5 - 5.1 MMOL/L 11/14/2021 9:17 AM CDT [facility] CHLORIDE S/P/B 104 98 - 107 MMOL/L 11/14/2021 9:17 AM T [facility] CO2 30.2 21.0 - 32.0 MMOL/L 11/14/2021 9:17 AM [facility] GLUCOSE 295(H) 70 - 99 MG/DL 11/14/2021 9:17 AM [facility] Comment: FASTING GLUCOSE 100 TO 125 MG/DL IS CONSISTENT WITH IMPAIRED FASTING GLUCOSE. FASTING GLUCOSE >125 MG/DL IS CONSISTENT WITH DIABETES. RANDOM GLUCOSE >200 MG/DL WITH HYPERGLYCEMIC SYMPTOMS IS CONSISTENT WITH DIABETES. PER ADA GUIDELINES BUN 20 6 - 24 MG/DL 11/14/2021 9:17 AM [facility] CREATININE S/P/B 1.11 0.70 - 1.30 MG/DL 11/14/2021 9:17 AM [facility] CALCIUM S/P/B 9.2 8.4 - 10.5 MG/DL 11/14/2021 9:17 AM [facility] ANION GAP 5.8 5.0 - 15.0 MMOL/L 11/14/2021 9:17 AM [facility] OSMOLALITY (CALC) 304 MOSM/KG 022 9:17 AM [facility] Comment:REFERENCE RANGE NOT ESTABLISHED GFR ESTIMATE 75(L) >89 ML/MIN/1. 73 M2 11/14/2021 9:17 AM [facility] GFR NOTES GFR REFERENCE S: 11/14/2021 9:17 AM [facility] Comment: THE ESTIMATED GFR IS CALCULATED [...] CDT Joshua Yin MD LABORATORY Final Result [facility] [address] [place] [id number], documented in this encounter Visit Diagnoses Diagnosis Anticoagulated Encounter for long-term (current) use of anticoagulants Pre-op testing Preoperative examination, unspecified documented in this encounter Additional Health Concerns Infection Onset Date Last Indicated Resolved Time COVID-19 Rule Out 11/14/2021 11/14/2021 11/14/2021 6:17 PM CDT documented as of this encounter Care Teams Supervisor Hydrochloric Area Relationship Specialty Start Date End Date Vernon Mercedes MD [address] [place] [address] PCP - General FAMILY PRACTICE 10/27/15 12/02/21 Evaristo Allan MD [address] [place] [address] Mutual Salesforce Trainer CARDIOVASCULAR DISEASE 08/19/16 Raul Santana MD [address] [place] [address] CLINICAL CARDIAC ELECTROPHYSIOLOGY 06/16/17 Danny Blackwell MD [address] [place] [address] ORTHOPAEDIC SURGERY 05/01/19 Gayle Arce, FABRIC MACHINE OPERATOR, HYDROTREATER OPERATOR-C [address] [facility] [address] [place] [address] NURSE PRACTITIONER 03/03/20 documented as of this encounter
--- OUTSIDE RECORDS SUMMARY | 2024-04-23 04:24 | XMS_ITS | Encounter Summary ---
Author Organization [facility] Address [address] [place] [address]. 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 [address] [place] [address] [place] [address] Ti Bonilla MD [address] [place] [phone] 05/23/2024 3:30 PM FIELD SERVICE POULTRY TECHNICIAN Office Visit [facility] [place] [phone] Jyoti Escobar MD [address] [place] [address] documented as of this encounter Visit Diagnoses Not on filedocumented in this encounter Care Teams Loft Worker Head Relationship Specialty Start Date End Date Ti Bonilla MD [address] [place] [phone] PCP - General FAMILY PRACTICE 12/03/21 Evaristo Allan MD [place] Chief Compressor Station Engineer CARDIOVASCULAR DISEASE 08/19/16 Raul Santana MD CLINICAL CARDIAC ELECTROPHYSIOLOGY 06/16/17 Danny Blackwell MD [address] [place] [address] ORTHOPAEDIC SURGERY 05/01/19 Gayle Arce, BARBARA, SMOKING TOBACCO PACKING MACHINE HAND-C [address] [facility] [address] [place] [phone] NURSE PRACTITIONER 03/03/20 documented as of this encounter
--- OUTSIDE RECORDS SUMMARY | 2024-04-23 04:24 | XMS_ITS | Encounter Summary ---
Author Organization [facility] Address [address] [place] [address]. [place], [place] [address] [place] [address] Care Team Providers Care Dredge Or Barge Shore Hand Name Role Phone Evaristo Allan MD Unavailable Unavailabl e ScheEve staley MD Unavailable Unavailabl e Lignum, Danny Galo MD Unavailable [phone] Gayle Arce APRN, DUCTFIXING PLUMBER-C Unavailable Ti Zamora MD Primary Care Provider Reason for Visit * Reason Comments Foot Pain New Patient, Pt is h ere for possible heel spur, Right and Bilateral swelling in ankles and feet. Pt is a Diabetic, Shoe 14/DS Encounter Details Date Type Department Care Team (Late st Contact Info) Description 12/03/2021 8:20 AM CDT Office Visit [facility] - [address], 2nd [place] [address] Eve Beth, DPM [address] [place] [address] Foot Pain (New Patient, Pt is here for possible heel spur, Right and Bilateral swelling in ankles and feet. 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 No / Unsure 12/03/2021 8:01 AM CDT documented as of this encounter Last Filed Vital Signs Vital Sign Reading Time Taken Comments Blood Pressure 138/90 12/03/2021 8:25 AM CDT Pulse 81 12/03/2021 8:25 AM CDT Temperature - - Respiratory Rate 22 12/03/2021 8:25 AM CDT Oxygen Saturation 97% 12/03/2021 8:25 AM CDT Inhaled Oxygen Concentration - - Weight 133.8 kg (295 lb) 12/03/2021 8:25 AM CDT Height 177.8 cm (5' 10 ) 12/03/2021 8:25 AM CDT Body Mass Index 42.33 12/03/2021 8:25 AM CDT documented in this encounter Functional [...] Progress Notes * Eve Beth, DPM - 12/03/2021 8:20 AM CDT Reason for Visit: Foot Pain (New Patient, Pt is here for possible heel spur, Right and Bilateral swelling in ankles and feet. Pt is a Diabetic, Shoe 14/DS) History of Present Illness: Evaristo Zelaya is a 61-year-old male here for evaluation of painful stiff and foot area on theright foot for several years now. He notes that he has had unilateral swelling in the region for noapparent reason he had a history of foot and ankle issues including a spurring area on the right ankle that was removed. He also had surgical intervention sounds like an open reduction on the left foot with a removal of what sounds like a neuroma. All this is done well. But he is continue to noticethis chronic swelling on the right. He is diabetic stating his blood sugars have been well controlled recently. No other issues or problems noted I did review the chart here today. ROS: Review of Systems Constitutional: Negative for chills, fever and weight loss. Respiratory: Negative for cough, hemoptysis and wheezing. Cardiovascular: Negative for chest pain, palpitations, claudication and leg swelling. Gastrointestinal: Negative for abdominal pain, blood in stool, constipation, diarrhea, nausea and vomiting. Genitourinary: Negative for dysuria, frequency and hematuria. Musculoskeletal: Negative for joint pain and myalgias. Painful swollen stiff right lower extremity. Skin: Negative for itching and rash. Neurological: Negative for tingling, sensory change and headaches. Endo/Heme/Allergies: Negative for environmental allergies. Does not bruise/bleed easily. Psychiatric/Behavioral: The patient is not nervous/anxious and does not have insomnia. Medications: Current Outpatient Medications: ??? amitriptyline 100 [...] TRUEPLUS PEN NEEDLES 31G X 8 MM [facility] [place], , Disp: , Rfl: Allergies Allergen Reactions [...] CATHETERIZATION 01/04/2018 occluded prox RCA w/well developed lmcy-gj-clobb collaterals lvef 55-60% ??? CARDIAC CATHETERIZATION 11/13/2018 ??? FRACTURE SURGERY ??? 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 HERNIA REPAIR ??? JOINT REPLACEMENT ??? KNEE ARTHROPLASTY Bilateral ??? LITHOTRIPSY ??? XA ABLATION 05/19/2016 ??? XA CORONARY INTERVENTION 03/24/2018 AUXILIARY POWERPLANT OPERATOR PCI-mid RCA Social History Socioeconomic History ??? Marital status: ??? Number of children: 1 Occupational History ??? 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 Smoking status: Never Smoker ??? Smokeless tobacco: Never Used Vaping Use ??? Vaping Use: Never used Substance and Sexual Activity ??? Alcohol use: Yes Comment: social ??? Drug use: No Other Topics Concern ??? Exercise Yes Comment: walking ??? Special Diet No ??? Caffeine Concern Yes Family History Problem Relation Name Age of [...] PGF ??? PGM ??? MGF ??? MGM Filed Vitals: 12/03/21 0825 BP: (!) 138/90 Pulse: 81 Resp: 22 SpO2: 97% Weight: 133.8 kg (295 lb) Height: 5' 10 (1.778 m) PHYSICAL EXAM I have performed a thorough and complete physical exam of the foot and ankle area bilateral; to include vascular, neurologic, dermatologic, and musculoskeletal evaluation. Trace palpable pulses dorsalis pedis nonpalpable posterior tibial secondary to pitting edema bilaterally right is worse than lef t. Neurologic sensation generally intact. Dermatologic evaluation mild mycotic nail changes noted. Musculoskeletal evaluation he has significant stiffness in the right lower extremity with limited range of motion of the ankle and subtalar joint. There is some limitation on the left as well but not as pronounced. Some discomfort associated with palpation of the midfoot right however I do not appreciate any increase in temperature no erythema nothing of this nature. Otherwise muscle strength and range of motion is within normal limits albeit somewhat limited in motion but strength is noted. Diagnoses/Impression: 1. Arthralgia of right foot XR FOOT STANDING RT 3V 2. Arthralgia of right ankle XR ANKLE STANDING RT 3V Recommendations and Plan: Radiographs were taken of both the ankle and foot area on the right. These demonstrate asymmetricalnarrowing of the tarsal metatarsal articulation with ectopic bone formation and fragmented fragments in this area as well as the midfoot and cuneiform articulations. He also has medial calcinosis of the vessels noted on radiographs. There appears to be perhaps a healing fracture at the base of the third fourth and fifth metatarsals with some radiodensity in the area but difficult to the lunate. Iexplained to the patient that perhaps this explains some of the unilateral swelling he is getting over the last couple of years he has some significant arthritic changes in this right foot region as w ell as the medial calcinosis. I suggest that he use a good supportive running shoe with an insole to reduce pressure and strain of the midfoot. Also ice the area and were going to try a course of Celebrex. He is on anticoagulants but Celebrex has no platelet inhibition should be fine with his current medication choices. He will get a pair of Jobst quul-pzm-yxdsyfl compression socks to help control the pitting edema and muscular things progress from here. EVE BETH Referring Provider: Vernon Mercedes MD PCP: TI ZAMORA MD documented in this encounter Plan of Treatment Upcoming Encounters Date Type Department Care Team (Late st Contact Info) Description 04/25/2024 11:00 AM MECHANICAL DESIGN TECHNICIAN Appointment [facility] [address] [place] [address] Ti Zamora MD [address] [place] [address] 05/23/2024 3:30 PM MECHANICAL DESIGN TECHNICIAN Office Visit [facility] [place] [address] Jyoti Escobar MD [address] [place] [address] documented as of this encounter Results * XR ANKLE STANDING [...] Beth DPM GENERAL IMAGING Final Resul t documented in this encounter Visit Diagnoses Diagnosis Arthralgia of right foot- Primary Pain in joint, ankle and foot Arthralgia of right ankle Pain in joint, ankle and foot Primary osteoarthritis of both feet Arthralgia of right foot Pain in joint, ankle and foot Arthralgia of right ankle Pain in joint, ankle and foot documented in this encounter Care Teams Dredge Or Barge Shore Hand Relationship Specialty Start Date End Date Ti Zamora MD [address] [place] [phone] PCP - General FAMILY PRACTICE 12/03/21 Evaristo Allan MD [place] Assistant Fitness Manager CARDIOVASCULAR DISEASE 08/19/16 Eve Santana MD CLINICAL CARDIAC ELECTROPHYSIOLOGY 06/16/17 Danny Blackwell MD [address] [place] [address] ORTHOPAEDIC SURGERY 05/01/19 Gayle Arce, BARBARA, DUCTFIXING PLUMBER-C [address] [address] NURSE PRACTITIONER 03/03/20 documented as of this encounter
--- OUTSIDE RECORDS SUMMARY | 2024-04-23 04:25 | XMS_ITS | Encounter Summary ---
Author Organization [facility] Address [address] [place] [address]. [place] [address] [place] [address] Care Team Providers Care Efficiency Miner Blasting Name Role Phone Vernon Mercedes MD Primary Care Provider [phone] Evaristo Allan MD Unavailable Unavailabl Raul Duran MD Unavailable Unavailabl Danny Lopes MD Unavailable [phone] Gayle Arce APRN, COMMUNITY RELATIONS MANAGER-C Unavailable Reason for Visit * Reason Onset Date Comments Appointment Request 11/13/2020 Encounter Details Date Type Department Care Team (Late st Contact Info) Description 11/13/2020 Telephone [facility] ld [address] [place] [address] Evaristo Allan MD Appointment Request Social History Tobacco Use Types [...] 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 No / Unsure 10/23/2020 12:05 AM CDT documented as of this encounter [...] encounter Progress Notes * Gayle Arce APRN, PELON - 11/13/2020 5:25 PM CDT Called patient and offered appointment tomorrow at 11:00am, but he has an appointment with his PCP and wanted to wait. Therefore, I asked him to call after his appointment tomorrow and we will add him to an opening based on his findings. He v/u. * Colleen Buckner RN - 11/13/2020 3:08 PM CDT Evaristo called and requested an appointment with Dr Allan/Sindy. States he knows he is back in afib and has been experiencing some chest discomfort that radiates down his left arm. The earliest appointment I can schedule into is 11/20 with Gayle. Can he be worked in somewhere earlier? His callback number is [phone]. documented in this encounter Plan of Treatment Upcoming Encounters Date Type Department Care Team (Late st Contact Info) Description 04/25/2024 11:00 AM CLINICAL QUALITY ANALYST Appointment [facility] [address] [place] [address] Ti Bonilla MD [address] [place] [phone] 05/23/2024 3:30 PM CLINICAL QUALITY ANALYST Office Visit [facility] [address] [place] [address] Jyoti Escobar MD [address] [place] [address] documented as of this encounter Visit Diagnoses Not on filedocumented in this encounter Care Teams Efficiency Miner Blasting Relationship Specialty Start Date End Date Vernon Mercedes MD [address] [place] [address] PCP - General FAMILY PRACTICE 10/27/15 12/02/21 Evaristo Allan MD [facility] [place] [address] Leon Utilization Review Rn CARDIOVASCULAR DISEASE 08/19/16 Raul Santana MD [facility] [place] [address] CLINICAL CARDIAC ELECTROPHYSIOLOGY 06/16/17 Danny Blackwell MD [address] [place] [address] ORTHOPAEDIC SURGERY 05/01/19 Gayle Arce APRN, COMMUNITY RELATIONS MANAGER-C [address] [facility] [address] [place] [address] NURSE PRACTITIONER 03/03/20 documented as of this encounter
--- OUTSIDE RECORDS SUMMARY | 2024-04-23 04:25 | XMS_ITS | Encounter Summary ---
Author Organization [facility] Address [address] [place] [address]. [place], [place] [address] [place] [address] Care Team Providers Care Construction Sales Representative Name Role Phone Vernon Mecredes MD Primary Care Provider [phone] Evaristo Allan MD Unavailable Unavailabl e Raul Santana MD Unavailable Unavailabl e Danny Blackwell MD Unavailable [phone] Gayle Arce APRN, NP-C Unavailable Reason for Referral * Imaging (Routine) - Closed Specialty Diagnoses / Procedures Referred By Contac t Referred To Contact RADIOLOGY Diagnoses Coronary artery disease involving [place] coronary artery of [place] heart, unspecified whether angina present Chest pain, unspecified type Tachycardia Difficulty walking Procedures NM PHARM NUC STRESS TEST 1DAY NM PHARM NUC STRESS TEST 1DAY Gayle Arce APRN, NP-C [address] [facility] [address] [place] [address] Phone: tel: fax: Referral ID Status Reason Start Date Expiration Date Visits Re quested Visits Authorized [id number] Closed 12/23/2020 01/23/2022 1 1 Reason for Visit * Imaging (Routine) - Closed Specialty Diagnoses / Procedures Referred By Contac t Referred To Contact RADIOLOGY Diagnoses Coronary artery disease involving [place] coronary artery of [place] heart, unspecified whether angina present Chest pain, unspecified type Tachycardia Difficulty walking Procedures NM PHARM NUC STRESS TEST 1DAY NM PHARM NUC STRESS TEST 1DAY Gayle Arce APRN, DIRECTOR FUNDS DEVELOPMENT-C [address] [facility] [address] [place] [address] Phone: tel: fax: Referral ID Status Reason Start Date Expiration Date Visits Re quested Visits Authorized [id number] Closed 12/23/2020 01/23/2022 1 1 Encounter Details Date Type Department Care Team (Latest Contact Info) Description 01/13/2021 6:58 AM CDT - 01/13/2021 7:54 AM CDT Hospital Encounter [facility] [address] [place] [address] [place] [address] Gayle Arce APRN, DIRECTOR FUNDS DEVELOPMENT-C [id number] [place] [address] Discharge Disposition: Home or Self [...] 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 No / Unsure 01/13/2021 6:57 AM CDT documented as of this encounter [...] mouth 3 (three) times a day. 11/19/2019 aspirin EC 81 MG tablet Take 81 mg by mouth daily. 100 tablet 10/18/2019 4 atorvastatin 40 MG tablet Take 0.5 tablets (20 mg total) by mouth nightly at bedtime. 4 carbidopa-levodo pa 25-100 MG tablet Take 1 tablet by mouth 3 (three) times daily. 01/03/2020 2 COMPRESSION STOCKINGSIndicat ions:Postural dizziness with near syncope 20-30 mmhg by Does not apply route daily. 1 Container 1 03/06/2020 2 dabigatran (PRADAXA) 150 MG Cap Take 1 capsule (150 mg total) by mouth 2 (two) times daily. 180 capsule 1 12/28/2020 2 famotidine 40 MG tablet Take 1 tablet (40 mg total) by mouth 2 (two) times daily. 12/06/2020 4 furosemide 20 MG tablet Take 20 mg by mouth daily. 01/28/2017 2 gabapentin 300 MG capsule Take 300 mg by mouth 3 (three) times daily. 02/06/2018 4 LEVEMIR 100 UNIT/ML injection Inject 44 Units into the skin nightly at bedtime. 12/29/2017 4 metoprolol succinate ER 100 MG 24 hr tablet Take 1 tablet (100 mg total) by mouth 2 (two) times a day. 60 tablet 1 12/23/2020 1 nitroglycerin 0.[address] 1 [...] st Contact Info) Description 04/25/2024 11:00 AM JUNIOR NETWORK ADMINISTRATOR Appointment [facility] [address] [place] [address] [place] [address] Ti Bonilla MD [address] [place] [phone] 05/23/2024 3:30 PM JUNIOR NETWORK ADMINISTRATOR Office Visit [facility] [address] [place] [address] [place] [address] Jyoti Escobar MD [address] [place] [address] documented as of this encounter Procedures Procedure Name Priority Date/Time Associated Diagnosis Comments NM PHARM NUC STRESS TEST 1DAY W TRACING Routine 01/13/2021 10:23 AM CDT Coronary artery disease involving [place] coronary artery of [place] heart, unspecified whether angina present Chest pain, unspecified type Tachycardia Difficulty walking documented in this encounter Results * NM PHARM NUC STRESS TEST 1DAY (01/13/2021 10:23 AM CDT) Anatomical Region Laterality Modality Cardiac Nuclear Medicine Gayle Arce APRN, DIRECTOR FUNDS DEVELOPMENT-C NUC MED Final Result documented in this encounter Visit Diagnoses Diagnosis Coronary artery disease involving [place] coronary artery of [place] heart, unspecified whether angina present Chest pain, unspecified type Tachycardia Tachycardia, unspecified Difficulty walking Difficulty in walking documented in this encounter Care Teams Construction Sales Representative Relationship Specialty Start Date End Date Vernon Mercedes MD [address] [place] [phone] PCP - General FAMILY PRACTICE 10/27/15 12/02/21 Evaristo Allan MD [facility] [place] [address] Cogswell Sales Person CARDIOVASCULAR DISEASE 08/19/16 Raul Santana MD [facility] [place] [address] CLINICAL CARDIAC ELECTROPHYSIOLOGY 06/16/17 Danny Blackwell MD [address] [place] [address] ORTHOPAEDIC SURGERY 05/01/19 Gayle Arce APRN, DIRECTOR FUNDS DEVELOPMENT-C [address] [facility] [address] [place] [address] NURSE PRACTITIONER 03/03/20 documented as of this encounter
--- OUTSIDE RECORDS SUMMARY | 2024-04-23 04:25 | XMS_ITS | Encounter Summary ---
Author Organization [facility] Address [address] [place] [address]. [place], [place] [address] [place] [address] Care Team Providers Care Filteration Operator Name Role Phone Vernon Mercedes MD Primary Care Provider [phone] Evaristo Allan MD Unavailable Unavailabl Raul Duran MD Unavailable Unavailabl Danny Lopes MD Unavailable [phone] Gayle Arce APRN SECURITY GUARD-C Unavailable Encounter Details Date Type Department Care Team (Late st Contact Info) Description 04/16/2021 12:03 PM BOMB SQUAD COMMANDER - 04/16/2021 11:59 PM [facility] Hospital Encounter [facility] [address] [place] [address] Vernon Mercedes MD [address] [place] [address] Discharge Disposition: Home or Self Care (Routine [...] 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 No / Unsure 04/16/2021 12:02 PM BOMB SQUAD COMMANDER documented as of this encounter Functional Status [...] TRUEPLUS PEN NEEDLES 31G X [facility] aspirin EC 81 MG tablet Take [...] the skin nightly at bedtime. 12/29/2017 4 METOPROLOL SUCCINATE ER 100 MG 24 hr tablet TAKE ONE TABLET BY MOUTH TWICE A DAY 60 tablet 1 01/27/2021 2 nitroglycerin 0.[address] 1 [...] st Contact Info) Description 04/25/2024 11:00 AM BOMB SQUAD COMMANDER Appointment [facility] [address] [place] [address] Ti Bonilla MD [address] [place] [address] 05/23/2024 3:30 PM BOMB SQUAD COMMANDER Office Visit [facility] [address] [place] [phone] Jyoti Escobar MD [address] [place] [address] documented as of this encounter Procedures Procedure Name Priority Date/Time Associated Diagnosis Comments CORONAVIRUS (COVID-19) ANTIGEN DIRECT OPTICAL Routine 04/16/2021 12:21 PM BOMB SQUAD COMMANDER Sinusitis documented in this encounter Results * (ABNORMAL) CORONAVIRUS (COVID-19) ANTIGEN DIRECT OPTICAL (04/16/2021 12:21 PM BOMB SQUAD COMMANDER) CORONAVIRUS ANTIGEN IA POSITIVE(AA ) NEGATIVE 04/16/2021 12:50 PM BOMB SQUAD COMMANDER [facility] Comment: CALLED TO SIRISHA AT 1246 READ BACK AND VERIFIED CRITICAL VALUE THIS TEST HAS BEEN AUTHORIZED BY THE FDA UNDER AN EMERGENCY USE AUTHORIZATION (EUA) FOR USE BY AUTHORIZED LABORATORIES. SPECIMEN TYPE NASAL 04/16/2021 12:33 PM BOMB SQUAD COMMANDER [facility] FIRST TEST NO 04/16/2021 12:33 PM BOMB SQUAD COMMANDER [facility] EMPLOYED IN HEALTHCARE YES 04/16/2021 12:33 PM BOMB SQUAD COMMANDER [facility] SYMPTOMATIC DEFINED BY CDC YES 04/16/2021 12:33 PM BOMB SQUAD COMMANDER [facility] DATE OF SYMPTOM ONSET [id number]/16/2021 12:33 PM BOMB SQUAD COMMANDER [facility] HOSPITALIZATION STATUS NO 04/16/2021 12:33 PM BOMB SQUAD COMMANDER [facility] PATIENT IN ICU NO 04/16/2021 12:33 PM BOMB SQUAD COMMANDER [facility] RESIDENT OF [facility] YES 04/16/2021 12:33 PM BOMB SQUAD COMMANDER [facility] Specimen from nose (specimen) NASAL STRUCTURE / Unknown 04/16/2021 12:21 PM BOMB SQUAD COMMANDER us Vernon Mercedes MD MICROBIOLOGY - GENERAL ORDERA BLES Final Result [facility] [address] [place] [address], documented in this encounter Visit Diagnoses Diagnosis Sinusitis Unspecified sinusitis (chronic) documented in this encounter Additional Health Concerns Infection Onset Date Last Indicated Resolved Time COVID-19 Rule Out 04/16/2021 04/16/2021 04/16/2021 12:50 PM BOMB SQUAD COMMANDER COVID-19 Confirmed 04/16/2021 04/16/2021 12:32 AM BOMB SQUAD COMMANDER documented as of this encounter Care Teams Filteration Operator Relationship Specialty Start Date End Date Vernon Mercedes MD [address] [place] [phone] PCP - General FAMILY PRACTICE 10/27/15 12/02/21 Evaristo Allan MD [facility] [place] [address] [place] Plant And Instrument Engineer CARDIOVASCULAR DISEASE 08/19/16 Raul Santana MD [facility] [place] [address] CLINICAL CARDIAC ELECTROPHYSIOLOGY 06/16/17 Danny Blackwell MD [address] [place] [address] ORTHOPAEDIC SURGERY 05/01/19 Gayle Arce APRN, SECURITY GUARD-C [address] [facility] [address] [place] [address] NURSE PRACTITIONER 03/03/20 documented as of this encounter
--- OUTSIDE RECORDS SUMMARY | 2024-04-23 04:25 | XMS_ITS | Encounter Summary ---
Author Organization [facility] Address [address] [place] [address]. 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 No / Unsure 12/23/2020 9:06 AM CDT documented as of this encounter [...] st Contact Info) Description 04/25/2024 11:00 AM PUMP OPERATOR Appointment [facility] [address] [place] [address] Ti Bonilla MD [address] [place] [phone] 05/23/2024 3:30 PM PUMP OPERATOR [facility] [address] [place] [address] Jyoti Escobar MD [address] [place] [address] documented as of this encounter Visit Diagnoses Not on filedocumented in this encounter Care Teams Garage Door Technician Relationship Specialty Start Date End Date Vernon [place] [address] PCP - General FAMILY PRACTICE 10/27/15 12/02/21 Evaristo Allan MD [address] [place] [address] [employer] [employer] Guard CARDIOVASCULAR DISEASE 08/19/16 Raul Santana MD [address] [place] [address] CLINICAL CARDIAC ELECTROPHYSIOLOGY 06/16/17 Danny Blackwell MD [address] [place] [address] ORTHOPAEDIC SURGERY 05/01/19 Gayle Arce, COST CONTROL SPECIALIST, CRIMINAL JUSTICE TEACHER-C [address] [facility] [address] [place] [phone] NURSE PRACTITIONER 03/03/20 documented as of this encounter
--- OUTSIDE RECORDS SUMMARY | 2024-04-23 04:25 | XMS_ITS | Encounter Summary ---
Author Organization [facility] Address [address] [place] [address]. 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 No / Unsure 07/29/2020 8:33 PM CDT documented as of this encounter [...] st Contact Info) Description 04/25/2024 11:00 AM DIRECT SUPPORT STAFF Appointment [facility] [address] [place] [address] Ti Bonilla MD [address] [place] [phone] 05/23/2024 3:30 PM DIRECT SUPPORT STAFF [facility] [address] [place] [address] Jyoti Escobar MD [address] [place] [address] documented as of this encounter Visit Diagnoses Not on filedocumented in this encounter Care Teams Commissioner Of Officials Relationship Specialty Start Date End Date Vernon Mercedes [place] [address] PCP - General FAMILY PRACTICE 10/27/15 12/02/21 Evaristo Allan MD [address] [place] [address] [employer] Instrumentation Mechanic CARDIOVASCULAR DISEASE 08/19/16 Raul Santana MD [address] [place] [address] CLINICAL CARDIAC ELECTROPHYSIOLOGY 06/16/17 Danny Blackwell MD [address] [place] [address] ORTHOPAEDIC SURGERY 05/01/19 Gayle Arce, CHILDCARE ATTENDANT, GREENS PLANTER-C [address] [facility] [address] [place] [phone] NURSE PRACTITIONER 03/03/20 documented as of this encounter
--- OUTSIDE RECORDS SUMMARY | 2024-04-23 04:25 | XMS_ITS | Encounter Summary ---
Author Organization [facility] Address [address] [place] [address]. [place], [place] [address] [place] [address] Care Team Providers Care Copy Lathe Tender Name Role Phone Vernon Mercedes MD Primary Care Provider [phone] Evaristo Allan MD Unavailable Unavailabl Raul Duran MD Unavailable Unavailabl Danny Lopes MD Unavailable [phone] Gayle Arce APRN, PAN DEVULCANIZER-C Unavailable Encounter Details Date Type Department Care Team (Latest Contact Info) Description 05/23/2021 9:00 AM RATE QUOTING OPERATOR - 05/23/2021 11:59 PM [facility] Hospital Encounter [facility] [address] [facility] [address] [place] [address] [place] [address] [place] [phone] Discharge Disposition: Home or Self Care (Routine [...] 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 No / Unsure 05/23/2021 9:00 AM RATE QUOTING OPERATOR documented as of this encounter Functional Status [...] st Contact Info) Description 04/25/2024 11:00 AM RATE QUOTING OPERATOR Appointment [facility] [address] [place] [address] Ti Bonilla MD [address] [place] [phone] 05/23/2024 3:30 PM RATE QUOTING OPERATOR Office Visit [facility] [address] [place] [phone] Jyoti Escobar MD [address] [place], [place] [phone] documented as of this encounter Visit Diagnoses Diagnosis Pre-operative laboratory examination Pre-procedural laboratory examination documented in this encounter Additional Health Concerns Infection Onset Date Last Indicated Resolved Time COVID-19 Rule Out 05/23/2021 05/23/2021 05/25/2021 3:02 PM RATE QUOTING OPERATOR documented as of this encounter Care Teams Copy Lathe Tender Relationship Specialty Start Date End Date Vernon Mercedes MD [address] [place] [address] PCP - General FAMILY PRACTICE 10/27/15 12/02/21 Evaristo Allan MD [address] [place] [address] [place] [employer] Sunglasses Assembler CARDIOVASCULAR DISEASE 08/19/16 Raul Santana MD [facility] [place] [address] CLINICAL CARDIAC ELECTROPHYSIOLOGY 06/16/17 Danny Blackwell MD [address] [place] [address] ORTHOPAEDIC SURGERY 05/01/19 Gayle Arce APRN, PAN DEVULCANIZER-C [address] [facility] [address] [place] [address] NURSE PRACTITIONER 03/03/20 documented as of this encounter
--- OUTSIDE RECORDS SUMMARY | 2024-04-23 04:25 | XMS_ITS | Encounter Summary ---
Author Organization [facility] Address [address] [place] [address]. [place], [place] [address] [place] [address] Care Team Providers Care Printer Apprentice Name Role Phone Vernon Mercedes MD Primary Care Provider [phone] Evaristo Allan MD Unavailable Unavailabl Raul Duran MD Unavailable Unavailabl Danny Lopes MD Unavailable [phone] Gayle Arce APRN, GENERAL SERVICE TECHNICIAN-C Unavailable Encounter Details Date Type Department Care Team (Late st Contact Info) Description 04/30/2021 2:47 PM RADIOGRAPHER - 04/30/2021 11:59 PM RADIOGRAPHER Hospital Encounter [facility] [address] [place] [phone] Lora Ace, [facility] [address] [place] [phone] Discharge Disposition: Home or Self Care (Routine [...] 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 No / Unsure 04/30/2021 2:41 PM RADIOGRAPHER documented as of this encounter Functional Status [...] Chest Pain. 25 tablet 1 01/04/2018 4 spironolactone 25 MG tablet 25 mg daily. 04/30/2021 2 tamsulosin 0.4 MG Cap Take 1 capsule (0.4 mg total) by mouth daily. 4 documented as of this encounter Plan of Treatment Upcoming Encounters Date Type Department Care Team (Late st Contact Info) Description 04/25/2024 11:[address] [facility] [place] [address] Ti Bonilla MD [address] [place] [phone] 05/23/2024 3:30 PM RADIOGRAPHER Office Visit [facility] [address] [place] [phone] Jyoti Escobar MD [address] [place] [address] documented as of this encounter Procedures Procedure Name Priority Date/Time Associated Diagnosis Comments XR CHEST PA+LAT Routine 04/30/2021 2:56 PM RADIOGRAPHER Cough documented in this encounter Results * XR CHEST PA+LAT (04/30/2021 2:56 PM RADIOGRAPHER) Anatomical Region Laterality Modality Chest Radiographic Shannan ging 04/30/2021 2:58 PM RADIOGRAPHER Impressions 04/30/2021 3:00 PM RADIOGRAPHER IMPRESSION: Few peripheral groundglass opacities within the lungs which could represent improving pneumonia in the appropriate clinical setting. Shallow inspiratory lung volumes. Ordered By: LORA SERNA Interpreted By: Lauro Alves MD, 04/30/2021 2:58 PM Narrative 04/30/2021 3:00 PM RADIOGRAPHER Examination: XR CHEST PA+LAT, 04/30/2021 2:58 PM. Technique: Upright PA and lateral radiographs of the chest Clinical history: Covid pneumonia, follow-up Comparison: Chest radiograph 04/16/2016 Findings: The heart size is normal. Shallow inspiratory lung volumes. Subtle peripheral groundglass opacities within the mid and lower lung zones. No focal pulmonary consolidation. No pleural effusion. No pneumothorax. Visualized osseous structures appear intact. Procedure Note Lauro Alves MD - 04/30/2021 Examination: XR CHEST PA+LAT, 04/30/2021 2:58 PM. Technique: Upright PA and lateral radiographs of the chest Clinical history: Covid pneumonia, follow-up Comparison: Chest radiograph 04/16/2016 Findings: The heart size is normal. Shallow inspiratory lung volumes. Subtleperipheral groundglass opacities within the mid and lower lung zones. Nofocal pulmonary consolidation. No pleural effusion. No pneumothorax.Visualized osseous structures appear intact. IMPRESSION: Few peripheral groundglass opacities within the lungs which couldrepresent improving pneumonia in the appropriate clinical setting. Shallowinspiratory lung volumes. Ordered By: LORA SERNA Interpreted By: Lauro Alves MD, 04/30/2021 2:58 PM us Lora Serna JOSS HOUSE KEEPER-BC GENERAL IMAGIN G Final Result documented in this encounter Visit Diagnoses Diagnosis Cough documented in this encounter Additional Health Concerns Infection Onset Date Last Indicated Resolved Time COVID-19 Confirmed 04/16/2021 04/16/2021 12:32 AM RADIOGRAPHER documented as of this encounter Care Teams Printer Apprentice Relationship Specialty Start Date End Date Vernon Mercedes MD [address] [place] [address] PCP - General FAMILY PRACTICE 10/27/15 12/02/21 Evaristo lAlan MD [facility] [place] [address] [place] [employer] Teacher CARDIOVASCULAR DISEASE 08/19/16 Raul Santana MD [facility]5 [place] [address] CLINICAL CARDIAC ELECTROPHYSIOLOGY 06/16/17 Danny Blackwell MD 5 [place] [address] ORTHOPAEDIC SURGERY 05/01/19 Gayle Arce, SENIOR MAJOR GIFTS OFFICER, GENERAL SERVICE TECHNICIAN-C [address] [facility] [address] [place] [phone] NURSE PRACTITIONER 03/03/20 documented as of this encounter
--- OUTSIDE RECORDS SUMMARY | 2024-04-23 04:25 | XMS_ITS | Encounter Summary ---
Author Organization [facility] Address [address] [place] [address]. 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 No / Unsure 05/25/2021 7:02 AM AWNING FINISHER documented as of this encounter Functional Status [...] st Contact Info) Description 04/25/2024 11:00 AM AWNING FINISHER Appointment [facility] [address] [place] [address] [place] [address] Ti Bonilla MD [address] [place] [phone] 05/23/2024 3:30 PM AWNING FINISHER Office Visit [facility] [address] [address] Jyoti Escobar MD [address] [place] [address] documented as of this encounter Visit Diagnoses Not on filedocumented in this encounter Additional Health Concerns Infection Onset Date Last Indicated Resolved Time COVID-19 Rule Out 05/23/2021 05/23/2021 05/25/2021 3:02 PM AWNING FINISHER COVID-19 Rule Out 05/25/2021 05/25/2021 05/26/2021 3:50 AM AWNING FINISHER documented as of this encounter Care Teams Boxcar Weigher Relationship Specialty Start Date End Date Vernon Mercedes MD [address] [place] [address] PCP - General FAMILY PRACTICE 10/27/15 12/02/21 Evaristo Allan MD [address] [place] [address] [place] Trade Marker CARDIOVASCULAR DISEASE 08/19/16 Raul Santana MD [facility] [place] [address] CLINICAL CARDIAC ELECTROPHYSIOLOGY 06/16/17 Danny Blackwell MD [address] [place] [address] ORTHOPAEDIC SURGERY 05/01/19 Gayle Arce, DIRECTOR PERSONAL, MARINE WATER TENDER-C [address] [facility] [address] [place] [phone] NURSE PRACTITIONER 03/03/20 documented as of this encounter
--- OUTSIDE RECORDS SUMMARY | 2024-04-23 04:25 | XMS_ITS | Encounter Summary ---
Author Organization [facility] Address [address] [place] [address]. [place], [place] [address] [place] [address] Care Team Providers Care Solid Waste Collector Name Role Phone Ton Mercedes MD Primary Care Provider Evaristo Allan MD Unavailable UnavailRaul Suresh MD Unavailable Unavailabl Danny Lopes MD Unavailable [phone] Gayle Arce APRN, TIRE MOUNTER-C Unavailable [phone] Reason for Visit * Auth/Cert Specialty Diagnoses / Procedures Referred By Charito t Referred To Contact Diagnoses Microhematuria Microhematuria Procedures CYSTOURETHROSCOPY CYSTOSCOPY FLEXIBLE Referral ID Status Reason Start Date Expiration Date Visits Re quested Visits Authorized [id number] 1 1 Encounter Details Date Type Department Care Team (Latest Contact Info) Description 05/26/2021 9:27 AM PUBLIC HEALTH WORKER - 05/26/2021 11:00 AM PUBLIC HEALTH WORKER Hospital 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 No / Unsure 05/26/2021 9:27 AM PUBLIC HEALTH WORKER documented as of this encounter Last Filed Vital Signs Vital Sign Reading Time Taken Comments Blood Pressure 112/62 05/26/2021 10:51 AM PUBLIC HEALTH WORKER Pulse 102 05/26/2021 10:51 AM PUBLIC HEALTH WORKER Temperature 36.2 ??C (97.2 ??F) 05/26/2021 10:[address] Respiratory Rate 20 05/26/2021 10:51 AM PUBLIC HEALTH WORKER Oxygen Saturation 98% 05/26/2021 10:51 AM PUBLIC HEALTH WORKER Inhaled Oxygen Concentration - - Weight 113.4 kg (250 lb) 05/20/2021 12:49 PM PUBLIC HEALTH WORKER Height 177.8 cm (5' 10 ) 05/20/2021 12:49 PM PUBLIC HEALTH WORKER Body Mass Index 35.87 05/20/2021 12:49 PM PUBLIC HEALTH WORKER documented in this encounter Functional Status * [...] Cohen RN Active documented in this encounter Discharge Instructions * Attachments The following attachments cannot be sent through Care Everywhere. * Cystoscopy Discharge Instructions (Macanese) documented in this encounter Medications at Time [...] as of this encounter H&P Notes * Ana Moreno III, MD - 05/26/2021 7:50 AM CST Consults Attending Provider: Ana Moreno III, MD PCP: TON MERCEDES MD Evaristo Zelaya is an 61-year-old male. Reason for Admission: Microhematuria Evaristo Zelaya has hematuria and frequency his hemoglobin A1c is now up to 13.4 he drinks 32 ounces of coffee daily his culture is negative his cytology is negative his CT is just to be negativewe have not seen his new voiding diary he is here for cystoscopy today in 2018 when we last evaluated him his cytology was atypical that is no longer atypical we do have a FISH still pending on him and he is here for cystoscopy today Reason for Consult: Requested by Ana Moreno III, MD Past Medical History: Diagnosis Date ??? Abnormal stress test ??? Arthritis ??? 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 Coronary artery disease ??? Diabetes (CMS/HCC) ??? Fatigue ??? GERD (gastroesophageal reflux disease) ??? Headache ??? Hyperlipidemia ??? Hypertension has had elevated B/P readings ??? Kidney stone ??? SARAI on CPAP ??? Paroxysmal atrial fibrillation (CMS/HCC) ??? PONV (postoperative nausea and vomiting) Allergies: Allergies Allergen Reactions ??? Doxycycline Other (see comment) Blisters in the mouth ? ? Tetracyclines & Related Other (see comment) Blisters in the mouth Social History Tobacco Use ??? Smoking status: Never Smoker ??? Smokeless tobacco: Never Used Substance Use Topics ??? Alcohol use: Yes Comment: social Past Surgical History: Procedure Laterality Date ??? CARDIAC CATHETERIZATION 01/04/2018 occluded prox RCA w/well developed [id number] collaterals lvef 55-60% ??? CARDIAC CATHETERIZATION 11/13/2018 ??? FRACTURE SURGERY ??? 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 HERNIA REPAIR ??? JOINT REPLACEMENT ??? KNEE ARTHROPLASTY Bilateral ??? LITHOTRIPSY ??? XA ABLATION 05/19/2016 ??? 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 Hypertension Mother ??? Hypertension Sister ??? Cancer Brother ??? Diabetes Brother ??? Other (PVD) Brother ??? Hypertension Sister ??? No Known Problems Father ??? No Known Problems Paternal Grandfather ??? No Known Problems Paternal Grandmother ??? No Known Problems Maternal Grandfather ??? No Known Problems Maternal Grandmother No current facility-administered medications on file prior to encounter. Current Outpatient Medications on File Prior to Encounter Medication Sig ??? amitriptyline 100 MG tablet Take 100 mg by mouth 2 (two) times daily. ??? aspirin EC 81 MG tablet Take 81 mg by mouth daily. ??? atorvastatin 40 MG tablet Take 40 mg by mouth nightly at bedtime. ??? carbidopa-levodopa 25-100 MG tablet Take 1 tablet by mouth 3 (three) times daily. ??? dabigatran (PRADAXA) 150 MG Cap Take 1 capsule (150 mg total) by mouth 2 (two) times daily. ??? famotidine 40 MG tablet Take 40 mg by mouth daily. ??? furosemide 20 MG tablet Take 20 mg by mouth daily. ??? gabapentin 300 MG capsule Take 300 mg by mouth 3 (three) times daily. ??? LEVEMIR 100 UNIT/ML injection Inject 44 Units into the skin nightly at bedtime. ??? metFORMIN 850 MG tablet Take 850 mg by mouth 2 (two) times daily with meals. ??? METOPROLOL SUCCINATE ER 100 MG 24 hr tablet TAKE ONE TABLET BY MOUTH TWICE A DAY ??? nitroglycerin 0.[address] 1 tablet (0.4 mg total) under the tongue every 5 (five) minutes as needed for Chest Pain. ??? NOVOLOG FLEXPEN 100 UNIT/ML injection (PEN) Inject 50 Units as directed 3 (three) times daily before meals. ??? spironolactone 25 MG tablet 25 mg daily. ??? tamsulosin 0.4 MG Cap Take 0.4 mg by mouth daily. ??? traMADol 50 MG tablet Take 1 tablet by mouth 3 (three) times a day. ??? TRUEPLUS PEN NEEDLES 31G X 8 MM [facility] Current Facility-Administered Medications: ??? sodium chloride 0.9 % infusion, , , , Current Outpatient Medications: ??? amitriptyline 100 MG [...] times daily. , Disp: , Rfl: ??? dabigatran (PRADAXA) 150 MG Cap, Take 1 capsule (150 mg total) by mouth 2 (two) times daily., Disp: 180 capsule, Rfl: 1 ??? famotidine 40 MG tablet, Take 40 mg by mouth daily., Disp: , Rfl: ??? furosemide 20 MG tablet, Take 20 mg by mouth daily. , Disp: , Rfl: ??? gabapentin 300 MG capsule, Take 300 mg by mouth 3 (three) times daily. , Disp: , Rfl: ??? LEVEMIR 100 UNIT/ML injection, Inject 44 Units into the skin nightly at bedtime. , Disp: , Rfl: ??? metFORMIN 850 MG tablet, Take 850 mg by mouth 2 (two) times daily with meals. , Disp: , Rfl: ??? METOPROLOL SUCCINATE ER 100 MG 24 hr tablet, TAKE ONE TABLET BY MOUTH TWICE A DAY, Disp: 60 tablet, Rfl: 1 ??? nitroglycerin 0.4 MG SL tablet, Place 1 tablet (0.4 mg total) under the tongue every 5 (five) minutes as needed for Chest Pain., Disp: 25 tablet, Rfl: 1 ??? NOVOLOG FLEXPEN 100 UNIT/ML injection (PEN), Inject 50 Units as directed 3 (three) times daily before meals. , Disp: , Rfl: ??? spironolactone 25 MG tablet, 25 mg daily., Disp: , Rfl: ??? tamsulosin 0.4 MG Cap, Take 0.4 mg by mouth daily., Disp: , Rfl: ??? traMADol 50 MG tablet, Take 1 tablet by mouth 3 (three) times a day. , Disp: , Rfl: ??? TRUEPLUS PEN NEEDLES 31G X 8 MM Mis, , Disp: , Rfl: Principal Problem: Microhematuria SNOMED CT(R): MICROSCOPIC HEMATURIA ROS Physical Exam Constitutional: He appears well-developed. HENT: Head: Normocephalic. Right Ear: External ear normal. Left Ear: External ear normal. Nose: Nose normal. Eyes: EOM are normal. Pulmonary/Chest: Effort normal. Abdominal: Soft. Genitourinary: Rectum normal and penis normal. Psychiatric: He has a normal mood and affect. Height 5' 10 (1.778 m), weight 113.4 kg (250 lb). Physical Exam GEN: Alert and oriented HEENT: AT and NC LUNGS: unlabored respiratory effort CV: no lower extremity edema ABD: Soft, Non-tender, Non-distended Back:No CVA tenderness, no sacral dimpling : exam defferred Musculoskelatal: normal gait Neuro: CN 2-12 grossly inta Labs: SODIUM Date Value Ref Range Status 12/12/2019 137 136 - 145 MMOL/L Final POTASSIUM Date Value Ref Range Status 12/12/2019 4.1 3.5 - 5.1 MMOL/L Final CHLORIDE S/P/B Date Value Ref Range Status 12/12/2019 100 98 - 107 MMOL/L Final CO2 Date Value Ref Range Status 12/12/2019 25.6 21.0 - 32.0 MMOL/L Final ANION GAP Date Value Ref Range Status 12/12/2019 11.4 5.0 - 15.0 MMOL/L Final BUN Date Value Ref Range Status 12/12/2019 17 6 - 24 MG/DL Final CREATININE S/P/B Date Value Ref Range Status 05/25/2021 0.99 0.70 - 1.30 MG/DL Final BUN CREATININE RATIO Date Value Ref Range Status 03/05/2017 16.8 12 - 20 Final eGFR Non-Afr. Amer. Date Value Ref Range Status 05/25/2021 81 (L) >89 ML/MIN/1.73 M2 Final eGFR Afr. Amer. Date Value Ref Range Status 05/25/2021 >90 >89 ML/MIN/1.73 M2 Final GLUCOSE Date Value Ref Range Status 12/12/2019 186 (H) 70 - 99 MG/DL Final Comment: FASTING GLUCOSE 100 TO 125 MG/DL IS CONSISTENT WITH IMPAIRED FASTING GLUCOSE. FASTING GLUCOSE >125 MG/DL IS CONSISTENT WITH DIABETES. RANDOM GLUCOSE >200 MG/DL WITH HYPERGLYCEMIC SYMPTOMS IS CONSISTENT WITH DIABETES. PER ADA GUIDELINES CALCIUM Date Value Ref Range Status 12/12/2019 9.4 8.4 - 10.5 MG/DL Final No results for input(s): WBC, RBC, HGB, HCT, MCV, MCH, MCHC, PLT, RDW, MPV, PERNEU, PERLYM, PERMON,PEREOS, PERBASO, NEUC, LYMC, MONOC, EOSC, BASOC, DTYPE in the last 168 hours. No components found for: UA No results found for this visit on 05/26/21 (from the past 8736 hour(s)). PSA Lab Results Component Value Date PSA 0.31 04/26/2017 Lab Results Component Value Date PSA 0.31 04/26/2017 Radiology: No results found for this or any previous visit. No results found for this or any previous visit. No results found for this or any previous visit. No results found for this or any previous visit. No results found for this or any previous visit. Assessment: Frequency may be from his high sugar; hematuria evaluation today once his cystoscopy is done Plan: Diascopy(CYSTOSCOPY) today ANA MORENO III, MD 05/26/2021 IC HEALTH WORKER documented in this encounter OR Notes * Brief Op Note - Ana Moreno III, MD - 05/26/2021 10:51 AM CST [facility] Brief Op HSHSCYSTOSCOPY FLEXIBLE Procedure Note Evaristo Bonny Garcia 05/26/2021 1032 Procedure(s) (LRB): CYSTOSCOPY FLEXIBLE (N/A) Surgeon(s): Ana Moreno III, MD Regional Engagement Consultant: None Anesthesia: Local Pre-Op Diagnosis: Microhematuria Post-Op Diagnosis: Same Findings: Normal cysto, CCT showed 2 left renal small stones and a 5 mm RIGHT AML Estimated Blood Loss: Minimal Specimens: None ANA MORENO III, MD Date: 05/26/2021 Time: 10:53 AM IC HEALTH WORKER * Op Note - Ana Moreno III, MD - 05/26/2021 12:00 AM CST INDICATIONS: Mr. Zelaya had some microhematuria and frequency. His frequency seems to have resolved,perhaps by controlling his sugar better. His most recent hemoglobin A1c was 13.4, but on the voiding diary he gave me, he only got up once at night and he took in only [address] scan did show 2small stones in the left kidney and a right-sided angiomyolipoma, which was only 5 mm across. Otherwise, his testing was benign. He is here for cystoscopy to complete the evaluation. DESCRIPTION OF OPERATION: After obtaining informed consent, the patient was taken to the cystoscopysuite where a timeout was taken. He was correctly identified. Cystoscopy showed a normal urethra. The prostate was minimally obstructing. Bladder had no tumors, diverticula, or foreign bodies. Orifices were normal. Prostate was mildly obstructing. The retroflex view showed a normal bladder outlet without a significant cervical lobe. The scope was then withdrawn. The patient returned to the ASU instable condition. As long as he keeps his sugar under control, I expect he will not have the frequency that he has been troubled with. We will get him back in a year to check his angiomyolipoma with a renal ultrasound and a KUB to check on the growth of his kidney stones. IC HEALTH WORKER documented in this encounter Plan of Treatment Upcoming Encounters Date Type Department Care Team (Late st Contact Info) Description 04/25/2024 11:00 AM PUBLIC HEALTH WORKER Appointment [facility] On license of [facility] [place] [address] Ti Bonilla MD [address] [place] [phone] 05/23/2024 3:30 PM PUBLIC HEALTH WORKER Office Visit [facility] [place] [address] Jyoti Escobar MD [address] [place] [address] [phone] documented as of this encounter Procedures Procedure Name Priority Date/Time Associated Diagnosis Comments CYSTOURETHROSCOPY 05/26/2021 10: 22 AM PUBLIC HEALTH WORKER Microhematuria Case Notes PCR NEG. documented in this encounter Visit Diagnoses Diagnosis Microhematuria- Primary Microscopic hematuria Microhematuria Microscopic hematuria documented in this encounter Admitting Diagnoses Diagnosis Microhematuria Microscopic hematuria documented in this encounter Administered Medications Inactive Administered Medications - up to 3 most recent administrations Medication Order MAR Action Action Date Dose Rate Site nitrofurantoin (macrocrystal-monohydrate) (MACROBID) 100 MG capsule 1 dose, Starting on Tue05/26/21 at 1057, Until Tue05/26/21 at 1059, Created by nahid feng nitrofurantoin (macrocrystal-monohydrate) (MACROBID) capsule 100 mg 100 mg, Oral, Once, 1 dose, On Tue05/26/21 at 1115 Given 05/26/2021 10:59 AM PUBLIC HEALTH WORKER 100 mg documented in this encounter Active and Recently Administered Medications Times are shown in PUBLIC HEALTH WORKER. Scheduled Medication Order 05/24/2021 05/25/2021 05/26/2021 nitrofurantoin (macrocrystal-monohydrate) (MACROBID) capsule 100 mg (COMPLETED) 100 mg, Oral, Once, 1 dose, On Tue05/26/21 at 1115 1059 (Given - Provid er: Kalina Nelson RN) PRN Medication Order 05/24/2021 05/25/2021 05/26/2021 lidocaine 2 % URO-JET jelly (CANCELED) As needed, Starting on Tue05/26/21 at 1037, Until Tue05/26/21 at 1043, Intra-Op 1037 (Given - Provid er: Ana Moreno III, MD) sodium chloride 0.9% infusion (COMPLETED) Continuous PRN, Starting on Tue05/26/21 at 1039, Until 05/26/21 at 1039, Intra-Op 1039 (New Bag - Prov ider: Ana Moreno III, MD) documented in this encounter Care Teams Solid Waste Collector Relationship Specialty Start Date End Date Ton Mercedes MD [address] [place] [address] PCP - General FAMILY PRACTICE 10/27/15 12/02/21 Evaristo Allan MD [address] [place] [address] [place] Project Facilitator CARDIOVASCULAR DISEASE 08/19/16 Raul Santana MD [facility] [place] [address] CLINICAL CARDIAC ELECTROPHYSIOLOGY 06/16/17 Danny Blackwell MD [address] [place] [address] ORTHOPAEDIC SURGERY 05/01/19 Gayle Arce, BARBARA, TIRE MOUNTER-C [address] [facility] [address] [place] [phone] NURSE PRACTITIONER 03/03/20 documented as of this encounter
--- OUTSIDE RECORDS SUMMARY | 2024-04-23 04:25 | XMS_ITS | Encounter Summary ---
Author Organization [facility] Address [address] [place] [address]. 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 No / Unsure 04/30/2021 2:41 PM TELEHEALTH NURSE documented as of this encounter Functional Status [...] st Contact Info) Description 04/25/2024 11:00 AM TELEHEALTH NURSE Appointment [facility] [address] [place] [address] Ti Bonilla MD [address] [place] [phone] 05/23/2024 3:30 PM TELEHEALTH NURSE Office Visit [facility] [address] [place] [phone] Jyoti Escobar MD [address] [place] [phone] documented as of this encounter Visit Diagnoses Not on filedocumented in this encounter Additional Health Concerns Infection Onset Date Last Indicated Resolved Time COVID-19 Confirmed 04/16/2021 04/16/2021 12:32 AM TELEHEALTH NURSE documented as of this encounter Care Teams Mechanical Research Engineer Relationship Specialty Start Date End Date Vernon Mercedes MD [address] [place] [phone] PCP - General FAMILY PRACTICE 10/27/15 12/02/21 Evaristo Allan MD [address] [facility] [place] [address] Clyde Broomcorn Seeder CARDIOVASCULAR DISEASE 08/19/16 Raul Santana MD [address] [place] [address] CLINICAL CARDIAC ELECTROPHYSIOLOGY 06/16/17 Danny Blackwell MD [address] [place] [address] ORTHOPAEDIC SURGERY 05/01/19 Gayle Arce, BARBARA, BOX BUILDER-C [address] [facility] [address] [place] [address] NURSE PRACTITIONER 03/03/20 documented as of this encounter
--- OUTSIDE RECORDS SUMMARY | 2024-04-23 04:25 | XMS_ITS | Encounter Summary ---
Author Organization [facility] Address [address] [place] [address]. [place], [place] [address] [place] [address] Care Team Providers Care Photographer Model Name Role Phone Vernon Mercedes MD Primary Care Provider [phone] Evaristo Allan MD Unavailable Unavailabl Raul Duran MD Unavailable Unavailabl Danny Lopes MD Unavailable [phone] Gayle Arce APRN [employer]-C Unavailable Reason for Referral * Sleep Lab (Routine) - Closed Specialty Diagnoses / Procedures Referred By Conttianna t Referred To Contact [facility] Sleep Disorders Diagnoses Sleep apnea Procedures PSG with CPAP/BIPAP (44426) Vernon Mercedes MD [address] [place] [address] Phone: tel: fax: [facility] [address] [place] [address] Phone: tel: Referral ID Status Reason Start Date Expiration Date Visits Re quested Visits Authorized [id number] Closed 07/03/2020 10/01/2020 1 1 Reason for Visit * Sleep Lab (Routine) - Closed Specialty Diagnoses / Procedures Referred By Conttianna ledbetter Referred To Contact [facility] Sleep Disorders Diagnoses Sleep apnea Procedures PSG with CPAP/BIPAP ([id number]) Vernon Mercedes MD [address] [place] [address] Phone: tel: fax: [facility] [address] [place] [address] Phone: tel: Referral ID Status Reason Start Date Expiration Date Visits Re quested Visits Authorized [id number] Closed 07/03/2020 10/01/2020 1 1 Encounter Details Date Type Department Care Team (Late st Contact Info) Description 07/29/2020 8:30 PM CDT - 07/29/2020 11:59 PM CDT Hospital Encounter [facility] [address] [place] [address] Vernon Mercedes MD [address] [place] [address] Discharge Disposition: Home or Self [...] 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 10/25/2018 NOVOLOG FLEXPEN 100 UNIT/ML injection (PEN) Inject 50 Units as directed 3 (three) times daily before meals. 09/13/2019 traMADol 50 MG tablet Take 1 tablet (50 mg total) by mouth 3 (three) times a day. 11/19/2019 amitriptyline 50 MG tablet Take 50 mg by mouth nightly at bedtime. 1 aspirin EC 81 MG tablet Take 81 [...] route daily. 1 Container 1 03/06/2020 2 famotidine 20 MG tablet Take 2 tablets by mouth 2 (two) times a day. 08/29/2019 1 furosemide 20 MG tablet Take 20 mg by mouth daily. 01/28/2017 2 gabapentin 300 MG capsule Take 300 mg by mouth 3 (three) times daily. 02/06/2018 4 LEVEMIR 100 UNIT/ML injection Inject 44 Units into the skin nightly at bedtime. 12/29/2017 4 metoprolol succinate ER 50 MG 24 hr tablet Take 50 mg by mouth daily. 1 nitroglycerin 0.[address] 1 tablet (0.4 mg total) under the tongue every 5 (five) minutes as needed for Chest Pain. 25 tablet 1 01/04/2018 4 PRADAXA 150 MG Cap TAKE ONE CAPSULE BY MOUTH TWICE A DAY 180 capsule 07/23/2020 1 spironolactone 25 MG tablet Take 0.5 tablets (12.5 mg total) by mouth daily. 30 tablet 03/31/2020 1 tamsulosin 0.4 MG Cap Take 1 capsule (0.4 mg total) by mouth daily. 4 documented as of this encounter Plan of Treatment Upcoming Encounters Date Type Department Care Team (Late st Contact Info) Description 04/25/2024 11:00 AM DANCING INSTRUCTOR Appointment [facility] [address] [place] [address] [place] [address] Ti Bonilla MD [address] [place] [phone] 05/23/2024 3:30 PM DANCING INSTRUCTOR Office Visit [facility] [place] [address] Jyoti Escobar MD [address] [place] [id number] documented as of this encounter Procedures Procedure Name Priority Date/Time Associated Diagnosis Comments POLYSOMNOGRAPHY 4 OR MORE PARAMETERS WITH CPAP Routine 07/30/2020 4:02 PM CDT Sleep apnea documented in this encounter Results * PSG with CPAP/BIPAP (10118) (07/30/2020 4:02 PM CDT) 07/30/2020 4:02 PM CDT Narrative ESCRIPTION - 07/30/2020 5:35 PM CDT SLEEP STUDY PLUS CPAP TITRATION ORDERED BY: ??Vernon Mercedes MD. INDICATION: ??To assess for sleep apnea. ??Patient with snoring and daytime sleepiness. A 60-year-old male, body weight 271 pounds, height of 5 feet 10 inches, BMI of 39, had symptoms of sleep apnea with snoring, daytime sleepiness, [place]ford sleepiness scale (ESS) of 17/24. METHOD USED: ??Standard method. SLEEP SUMMARY: ??Patient monitored from 9:47 p.m. until 5:31 a.m. ??Total time in bed is 464 minutes. ??Sleep time was 345 minutes. ??Sleep onset 49 minutes. ??Sleep efficiency 75%. ??Stage I 7%, stage II 73%, stage REM 18%. ?? REM latency 126 minutes. ??Patient spent 65% supine. MOVEMENT SUMMARY: ??Patient had 150 periodic limb movements, index of 26 an hour. ??No arousals. ??There were some increase activities in REM sleep suggestive of REM without atonia, improved with the CPAP. CARDIAC SUMMARY: ??Awake heart rate was 100 beats per minute. ??Sleep heart rate was 98 beats per minute. RESPIRATORY SUMMARY: ??During the diagnostic portion, patient had obstructive apnea and hypopneas with AHI of 21 an hour. ??Lowest saturation was 84%. ??Started on a CPAP utilizing a Page and [employer] Vitera full face mask, medium size. ??Pressure of 4, raised to 6, 8. ??At that time, patient had REM and supine sleep, AHI was 4, saturation above 91%. ??Pressure was raised to 9, patient noted to have 1 apnea and 3 hypopneas. ??AHI was only 1 an hour, saturation above 90% with average of 94%. IMPRESSION: 1. ??Moderate sleep apnea/hypopnea syndrome, AHI 21 an hour with the lowest saturation of 84%. 2. ??CPAP titration. ??Patient did well on pressure of 9 CWP. ??AHI was 1 an hour, saturation above 90% with average of 94%. 3. ??Patient noted to have increased activities during REM sleep suggestive of REM without atonia, improved after the CPAP, likely with sleep apnea. ?? No obvious REM behavior disorder otherwise. RECOMMENDATIONS: 1. ??It would be reasonable to start patient at a little higher pressure, possibly CPAP of 10 CWP via C-Flex level 3 utilizing a [employer] Vitera full face mask, medium size. ??Close followup including downloads, [id number] evaluation. 2. ??Patient will need further detailed sleep history if having any symptoms suggestive of REM behavior disorder with a close followup. 3. ??General recommendation to treat sleep apnea, including weight reduction, assessment to upper airways, and thyroid function. Safety in terms of driving and working around machineries till sleep apnea treated, and hypersomnia resolved, Education about risks and benefits of treating sleep apnea, and close follow up. Avoid sedatives and hypnotics Clinical correlation is required. Elina Siegel MD FCCP Diplomate, [place] Board of sleep Medicine D: ??07/30/2020 04:02 PM #[id number] T: ??07/30/2020 04:33 PM /NTS Procedure Note Des Siegel MD - 07/30/2020 SLEEP STUDY PLUS CPAP TITRATION ORDERED BY: Vernon Mercedes MD. INDICATION: To assess for sleep apnea. Patient with snoring and daytimesleepiness. A 60-year-old male, body weight 271 pounds, height of 5 feet 10 inches,BMI of 39, had symptoms of sleep apnea with snoring, daytime sleepiness,[place]ford sleepiness scale (ESS) of 17/24. METHOD USED: Standard method. SLEEP SUMMARY: Patient monitored from 9:47 p.m. until 5:31 a.m. Totaltime in bed is 464 minutes. Sleep time was 345 minutes. Sleep onset 49minutes. Sleep efficiency 75%. Stage I 7%, stage II 73%, stage REM 18%.REM latency 126 minutes. Patient spent 65% supine. MOVEMENT SUMMARY: Patient had 150 periodic limb movements, index of 26 anhour. No arousals. There were some increase activities in REM sleepsuggestive of REM without atonia, improved with the CPAP. CARDIAC SUMMARY: Awake heart rate was 100 beats per minute. Sleep heartrate was 98 beats per minute. RESPIRATORY SUMMARY: During the diagnostic portion, patient hadobstructive apnea and hypopneas with AHI of 21 an hour. Lowest saturationwas 84%. Started on a CPAP utilizing a [employer] Vitera full facemask, medium size. Pressure of 4, raised to 6, 8. At that time, patienthad REM and supine sleep, AHI was 4, saturation above 91%. Pressure wasraised to 9, patient noted to have 1 apnea and 3 hypopneas. AHI was only1 an hour, saturation above 90% with average of 94%. IMPRESSION: 1. Moderate sleep apnea/hypopnea syndrome, AHI 21 an hour with the lowestsaturation of 84%. 2. CPAP titration. Patient did well on pressure of 9 CWP. AHI was 1 anhour, saturation above 90% with average of 94%. 3. Patient noted to have increased activities during REM sleep suggestiveof REM without atonia, improved after the CPAP, likely with sleep apnea.No obvious REM behavior disorder otherwise. RECOMMENDATIONS: 1. It would be reasonable to start patient at a little higher pressure,possibly CPAP of 10 CWP via C-Flex level 3 utilizing a [employer] full face mask, medium size. Close followup including downloads,[id number] evaluation. 2. Patient will need further detailed sleep history if having anysymptoms suggestive of REM behavior disorder with a close followup. 3. General recommendation to treat sleep apnea, including weightreduction, assessment to upper airways, and thyroid function. Safety in terms of driving and working around machineries till sleep apneatreated, and hypersomnia resolved, Education about risks and benefits oftreating sleep apnea, and close follow up. Avoid sedatives and hypnotics Clinical correlation is required. Elina Siegel MD FCCP Diplomate, [place] Board of sleep Medicine #[id number] /NTS us Vernon Mercedes MD [facility]ENTER ORDERABLES Final Result ESCRIPTION documented in this encounter Visit Diagnoses Diagnosis Sleep apnea Unspecified sleep apnea documented in this encounter Care Teams Photographer Model Relationship Specialty Start Date End Date Vernon Mercedes MD [address] [facility] [place] [address] PCP - General FAMILY PRACTICE 10/27/15 12/02/21 Evaristo Allan MD [address] [place] [address] [place] Telemedicine Physician CARDIOVASCULAR DISEASE 08/19/16 Raul Santana MD [address] [place] [address] CLINICAL CARDIAC ELECTROPHYSIOLOGY 06/16/17 Danny Blackwell MD [address] [place] [address] ORTHOPAEDIC SURGERY 05/01/19 Gayle Arce, ADVERTISING SUPERVISOR, [employer]-C [address] [facility] [address] [place] [phone] NURSE PRACTITIONER 03/03/20 documented as of this encounter
--- OUTSIDE RECORDS SUMMARY | 2024-04-23 04:25 | XMS_ITS | Encounter Summary ---
Author Organization [facility] Address [address] [place] [address]. 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 [...] Contact Info) Description 04/25/2024 11:00 AM SENIOR UI DESIGNER Appointment [facility] [address] [place] [address] [place] [address] Ti Bonilla MD [address] [place] [phone] 05/23/2024 3:30 PM SENIOR UI DESIGNER Office Visit [facility] [address] [place] [address] Jyoit Escobar MD [address] [place] [phone] documented as of this encounter Procedures Procedure Name Priority Date/Time Associated Diagnosis Comments ELECTROCARDIOGRAM (NON MIDMARK ACQUIRED) Routine 12/23/2020 9:46 AM CDT Paroxysmal atrial fibrillation ([facility]) documented in this encounter Results * ELECTROCARDIOGRAM (12/23/2020 9:46 AM CDT) 12/23/2020 9:46 AM CDT Narrative [facility] - 12/29/2020 7:09 PM CDT ? [facility] ?[address] [place], [place] ??[address] ? Test Date: ?2020-12-23 Pat Name: ? ELZA MCKEON ? Department: ? Room: ? Gender: ? Male ? Tank Pumper Panelboard: ?? srr : ?1960 ? Requested By: ELZA FLOYD Order Number: [id number] ?Reading MD: ?? Elza Floyd ? Measurements Intervals ?[place] ? Rate: ? 102 ?P: ?16 [place]: ? 216 ?QRS: ?61 QRSD: ? 112 ?T: ?21 QT: ? 342 ? QTc: ?446 ? Interpretive Statements SINUS TACHYCARDIA WITH FIRST DEGREE AV BLOCK INCOMPLETE RIGHT BUNDLE BRANCH BLOCK Procedure Note Elza Floyd MD - 12/29/2020 [facility], [facility] [address] [place] [address] Test Date: 2020-12-23 Pat Name: [facility] Department: Room: Gender: Male Tank Pumper Panelboard: r : 1960 Requested By: ELZA FLOYD Order Number: [id number] Jose Antonio MD: Elza Floyd Measurements Intervals [place] Rate: 102 P: 16 [place]: 216 QRS: 61 QRSD: 112 T: 21 QT: 342 QTc: 446 Interpretive Statements SINUS TACHYCARDIA WITH FIRST DEGREE AV BLOCK INCOMPLETE RIGHT BUNDLE BRANCH BLOCK us Elza Floyd MD PROCEDURES-ORDERABLE NO LENO RGE Final Result [facility] documented in this encounter Visit Diagnoses Diagnosis Paroxysmal atrial fibrillation ([facility]/HCC [facility]/HCC)- Primary Atrial fibrillation documented in this encounter Care Teams Special Events Assistant Relationship Specialty Start Date End Date Vernon Mercedes MD [address] [facility] [place] [address] PCP - General FAMILY PRACTICE 10/27/15 12/02/21 Elza Floyd MD [address] [place] [address] [facility] Cardiopulmonary Supervisor CARDIOVASCULAR DISEASE 08/19/16 Raul Santana MD [address] [place] [address] CLINICAL CARDIAC ELECTROPHYSIOLOGY 06/16/17 Danny Blackwell MD [address] [place] [address] ORTHOPAEDIC SURGERY 05/01/19 Gayle Arce, CUSTOMER FIELD REPRESENTATIVE, PRODUCTION REPRODUCTION MANAGER-C [address] [facility] [address] [place] [phone] NURSE PRACTITIONER 03/03/20 documented as of this encounter
--- OUTSIDE RECORDS SUMMARY | 2024-04-23 04:25 | XMS_ITS | Encounter Summary ---
Author Organization [facility] Address [address] [place] [address]. 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 No / Unsure 01/03/2021 10:58 AM CDT documented as of this encounter [...] st Contact Info) Description 04/25/2024 11:00 AM CEO [place] Appointment [facility] [address] [place] [address] Ti Bonilla MD [address] [place] [phone] 05/23/2024 3:30 PM [employer] [place] [facility] [address] [place] [address] Jyoti Escobar MD [address] [place] [address] documented as of this encounter Visit Diagnoses Not on filedocumented in this encounter Care Teams Bingo Cashier Relationship Specialty Start Date End Date Vernon [place] [address] PCP - General FAMILY PRACTICE 10/27/15 12/02/21 Evaristo Allan MD [address] [place] [address] [place] Division Superintendent CARDIOVASCULAR DISEASE 08/19/16 Raul Santana MD [address] [place] [address] CLINICAL CARDIAC ELECTROPHYSIOLOGY 06/16/17 Danny Blackwell MD [address] [place] [address] ORTHOPAEDIC SURGERY 05/01/19 Gayle Arce, CLEANING AND WASHING EQUIPMENT OPERATOR, INTERNET MERCHANT-C [address] [facility] [address] [place] [phone] NURSE PRACTITIONER 03/03/20 documented as of this encounter
--- OUTSIDE RECORDS SUMMARY | 2024-04-23 04:25 | XMS_ITS | Encounter Summary ---
Author Organization [facility] Address [address] [place] [address]. [place], [place] [address] [place] [address] Care Team Providers Care Dry House Tender Name Role Phone Ton Mercedes MD Primary Care Provider [phone] Evaristo Allan MD Unavailable Unavailabl Raul Duran MD Unavailable Unavailabl Danny Lopes MD Unavailable [phone] Gayle Arce APRN, MANAGER THERAPY-C Unavailable [phone] Reason for Visit * Auth/Cert Specialty Diagnoses / Procedures Referred By Charito t Referred To Contact Diagnoses Microhematuria Microhematuria Procedures CYSTOURETHROSCOPY CYSTOSCOPY FLEXIBLE Referral ID Status Reason Start Date Expiration Date Visits Re quested Visits Authorized [id number] 1 1 Encounter Details Date Type Department Care Team (Late st Contact Info) Description 05/26/2021 10:32 AM THERAPEUTIC STRATEGY LEAD - 05/26/2021 11:01 AM THERAPEUTIC STRATEGY LEAD Surgery [place] [address] [place] [address] [place] [address] [place] [phone] CYSTOSCOPY FLEXIBLE Surgery Details Date/Time Status Location OR Service Patient Class Case Class Case Type Trauma Case? 05/26/2021 10:32 AM Posted SFL OR Uro Urology Short Stay/Outpati ent Surgery No Panel 1 Procedure LRB Anes Op Region Wound Class Comments CYSTOSCOPY FLEXIBLE N/A Local Bladder Clean Cont aminated Surgeon Surgeon Role Service Panel Ana Moreno III, MD Primary Urology 1 Case Notes PCR NEG. 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 No / Unsure 05/26/2021 9:27 AM THERAPEUTIC STRATEGY LEAD documented as of this encounter Last Filed Vital Signs Vital Sign Reading Time Taken Comments Blood Pressure 112/62 05/26/2021 10:51 AM THERAPEUTIC STRATEGY LEAD Pulse 102 05/26/2021 10:51 AM THERAPEUTIC STRATEGY LEAD Temperature 36.2 ??C (97.2 ??F) 05/26/2021 10:[address] Respiratory Rate 20 05/26/2021 10:51 AM THERAPEUTIC STRATEGY LEAD Oxygen Saturation 98% 05/26/2021 10:51 AM THERAPEUTIC STRATEGY LEAD Inhaled Oxygen Concentration - - Weight 113.4 kg (250 lb) 05/20/2021 12:49 PM THERAPEUTIC STRATEGY LEAD Height 177.8 cm (5' 10 ) 05/20/2021 12:49 PM THERAPEUTIC STRATEGY LEAD Body Mass Index 35.87 05/20/2021 12:49 PM THERAPEUTIC STRATEGY LEAD documented in this encounter Functional Status * [...] Rodriguez RN Active documented in this encounter Discharge Instructions * Attachments The following attachments cannot be sent through Care Everywhere. * Cystoscopy Discharge Instructions (Khmer) documented in this encounter Medications at Time [...] CATHETERIZATION 01/04/2018 occluded prox RCA w/well developed jbaz-zb-[id number] collaterals lvef 55-60% ??? CARDIAC CATHETERIZATION 11/13/2018 ??? FRACTURE SURGERY ??? 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 HERNIA REPAIR ??? JOINT REPLACEMENT ??? KNEE ARTHROPLASTY Bilateral ??? LITHOTRIPSY ??? XA ABLATION 05/19/2016 ??? XA CORONARY INTERVENTION 03/24/2018 GLOBAL COMPENSATION MANAGER PCI-mid RCA Family History Problem Relation Name [...] TRUEPLUS PEN NEEDLES 31G X 8 MM [facility] Current Facility-Administered Medications: ??? sodium chloride 0.9 [...] NEEDLES 31G X 8 MM [facility], , Disp: , Rfl: Principal Problem: Microhematuria [...] Diascopy(CYSTOSCOPY) today ANA MORENO III, MD 05/26/2021 APEUTIC STRATEGY LEAD documented in this encounter OR Notes * Brief Op Note - Ana Moreno III, MD - 05/26/2021 10:51 AM CST [facility] Brief Op HSHSCYSTOSCOPY FLEXIBLE Procedure Note Evaristo Zelaya 05/26/2021 1032 Procedure(s) (LRB): CYSTOSCOPY FLEXIBLE (N/A) Surgeon(s): Ana Moreno III, MD Silo Painter: None Anesthesia: Local Pre-Op Diagnosis: Microhematuria Post-Op Diagnosis: Same Findings: Normal cysto, CCT showed 2 left renal small stones and a 5 mm RIGHT AML Estimated Blood Loss: Minimal Specimens: None ANA MORENO III, MD Date: 05/26/2021 Time: 10:53 AM APEUTIC STRATEGY LEAD * Op Note - Ana Moreno III, [...] withdrawn. The patient returned to the [facility] in stable condition. As long as he keeps his sugar under control, I expect he will not have the frequency that he has been troubled with. 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 APEUTIC STRATEGY LEAD documented in this encounter Plan of Treatment Upcoming Encounters Date Type Department Care Team (Late st Contact Info) Description 04/25/2024 11:00 AM THERAPEUTIC STRATEGY LEAD Appointment [facility] [address] [facility] [address] Ti Bonilla MD [address] [place] [phone] 05/23/2024 3:30 PM THERAPEUTIC STRATEGY LEAD Office Visit [facility] [address] [place] [phone] Jyoti Escobar MD [address] [place] [address] documented as of this encounter Procedures Procedure Name Priority Date/Time Associated Diagnosis Comments CYSTOURETHROSCOPY 05/26/2021 10: 22 AM THERAPEUTIC STRATEGY LEAD Microhematuria Case Notes PCR NEG. documented in this encounter Visit Diagnoses Diagnosis Microhematuria- Primary Microscopic hematuria Microhematuria Microscopic hematuria Microhematuria Microscopic hematuria documented in this encounter Admitting Diagnoses Diagnosis Microhematuria Microscopic hematuria documented in this encounter Administered Medications Inactive Administered Medications - up to 3 most recent administrations Medication Order MAR Action Action Date Dose Rate Site lidocaine 2 % URO-JET jelly As needed, Starting on Tue05/26/21 at 1037, Until Tue05/26/21 at 1043, Intra-Op Given 05/26/2021 10:37 AM THERAPEUTIC STRATEGY LEAD 1 Application. nitrofurantoin (macrocrystal-monohydrat e) (MACROBID) 100 MG capsule 1 dose, Starting on Tue05/26/21 at 1057, Until Tue05/26/21 at 1059, Created by cabinet override nitrofurantoin (macrocrystal-monohydrat e) (MACROBID) capsule 100 mg 100 mg, Oral, Once, 1 dose, On Tue05/26/21 at 1115 Given 05/26/2021 10:59 AM THERAPEUTIC STRATEGY LEAD 100 mg sodium chloride 0.9% infusion Continuous PRN, Starting on Tue05/26/21 at 1039, Until Tue05/26/21 at 1039, Intra-Op New Bag 05/26/2021 10:39 AM THERAPEUTIC STRATEGY LEAD 125 mL/hr 125 mL/hr documented in this encounter Active and Recently Administered Medications Times are shown in THERAPEUTIC STRATEGY LEAD. Scheduled Medication Order 05/24/2021 05/25/2021 05/26/2021 nitrofurantoin (macrocrystal-monohydrate) (MACROBID) capsule 100 mg (COMPLETED) 100 mg, Oral, Once, 1 dose, On e 05/26/21 at 1115 1059 (Given - Provid er: Kalina Nelson RN) PRN Medication Order 05/24/2021 05/25/2021 05/26/2021 lidocaine 2 % URO-JET jelly (CANCELED) As needed, Starting on Tue05/26/21 at 1037, Until 05/26/21 at 1043, Intra-Op 1037 (Given - Provid er: Ana Moreno III, MD) sodium chloride 0.9% infusion (COMPLETED) Continuous PRN, Starting on Tue05/26/21 at 1039, Until Tue05/26/21 at 1039, Intra-Op 1039 (New Bag - Prov ider: Ana Moreno III, MD) documented in this encounter Care Teams Dry House Tender Relationship Specialty Start Date End Date Ton Mercedes MD [address] [place] [phone] PCP - General FAMILY PRACTICE 10/27/15 12/02/21 Evaristo Allan MD [address] [place] [address] [place] Bottle Filler CARDIOVASCULAR DISEASE 08/19/[address] [facility] [place] [address] CLINICAL CARDIAC ELECTROPHYSIOLOGY 06/16/17 Danny Blackwell MD [address] [place] [address] ORTHOPAEDIC SURGERY 05/01/19 Gayle Arce, TRANSITION MGR RN, MANAGER THERAPY-C [address] [facility] [address] [place] [address] NURSE PRACTITIONER 03/03/20 documented as of this encounter
--- OUTSIDE RECORDS SUMMARY | 2024-04-23 04:25 | XMS_ITS | Encounter Summary ---
Author Organization [facility] Address [address] [place] [address]. 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 file [...] Assessment Author Status No 10/15/2019 4:47 PM MIKIKT Kaylyn Cohen RN Active * Because of [...] Contact Info) Description 04/25/2024 11:00 AM MENTAL TESTER Appointment [facility] [address] [place] [address] Ti Bonilla MD [address] [place] [phone] 05/23/2024 3:30 PM MENTAL TESTER [facility] [address] [place] [address] Jyoti Escobar MD [address] [place] [address] documented as of this encounter Visit Diagnoses Not on filedocumented in this encounter Care Teams Drawer Fitter Relationship Specialty Start Date End Date Vernon [place] [address] PCP - General FAMILY PRACTICE 10/27/15 12/02/21 Evaristo Allan MD [address] [place] [address] [place] Cut Off Saw Set Up Operator CARDIOVASCULAR DISEASE 08/19/16 Raul Santana MD [address] [place] [address] CLINICAL CARDIAC ELECTROPHYSIOLOGY 06/16/17 Danny Blackwell MD [address] [place] [address] ORTHOPAEDIC SURGERY 05/01/19 Gayle Arce, PRACTICAL NURSING TEACHER, FASHION CONSULTANT-C [address] [facility] [address] [place] [phone] NURSE PRACTITIONER 03/03/20 documented as of this encounter
--- OUTSIDE RECORDS SUMMARY | 2024-04-23 04:25 | XMS_ITS | Encounter Summary ---
Author Organization [facility] Address [address] [place] [address]. 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 No / Unsure 01/12/2021 12:41 PM CDT documented as of this encounter [...] st Contact Info) Description 04/25/2024 11:00 AM HIGH DENSITY FINISHING OPERATOR Appointment [facility] [address] [place] [address] Ti Bonilla MD [address] [place] [phone] 05/23/2024 3:30 PM HIGH DENSITY FINISHING OPERATOR [facility] [address] [place] [address] Jyoti Escobar MD [address] [place] [address] documented as of this encounter Visit Diagnoses Not on filedocumented in this encounter Care Teams Events Associate Relationship Specialty Start Date End Date Vernon [place] [address] PCP - General FAMILY PRACTICE 10/27/15 12/02/21 Evaristo Allan MD [address] [place] [address] [place] Agitator Operator CARDIOVASCULAR DISEASE 08/19/16 Raul Santana MD [address] [place] [address] CLINICAL CARDIAC ELECTROPHYSIOLOGY 06/16/17 Danny Blackwell MD [address] [place] [address] ORTHOPAEDIC SURGERY 05/01/19 Gayle Arce, DIRECTOR CALL CENTER SALES, PROTECTION SPECIALIST-C [address] [facility] [address] [place] [phone] NURSE PRACTITIONER 03/03/20 documented as of this encounter
--- OUTSIDE RECORDS SUMMARY | 2024-04-23 04:25 | XMS_ITS | Encounter Summary ---
Author Organization [facility] Address [address] [place] [address]. [place] [address] [place] [address] Care Team Providers Care Gang Supervisor Pipe Lines Name Role Phone Vernon Mercedes MD Primary Care Provider [phone] Evaristo Allan MD Unavailable UnavailRaul Suresh MD Unavailable Unavailabl Danny Lopes MD Unavailable [phone] Gayle Arce APRN COMPUTER METEOROLOGIST-C Unavailable Reason for Referral * Sleep Lab (Routine) - Closed Specialty Diagnoses / Procedures Referred By Charito ledbetter Referred To Contact [facility] Sleep Disorders Diagnoses Sleep apnea Procedures PSG with CPAP/BIPAP (00096) Vernon Mercedes MD [address] [place] [address] Phone: tel: fax: 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 Not on [...] st Contact Info) Description 04/25/2024 11:00 AM NSH TEACHER Appointment [facility] [address] [place] [address] Ti Bonilla MD [address] [place] [phone] 05/23/2024 3:30 PM NSH TEACHER Office Visit [facility] [address] [facility] [place] [address] Jyoti Escobar MD [address] [place] [address] documented as of this encounter Results * PSG with CPAP/BIPAP (12121) (07/30/2020 4:02 PM CDT) 07/30/2020 4:02 PM CDT Narrative ESCRIPTION - 07/30/2020 5:35 PM CDT SLEEP STUDY PLUS CPAP TITRATION ORDERED BY: ??Vernon Mercedes MD. INDICATION: ??To assess for sleep apnea. ??Patient with snoring and daytime sleepiness. A 60-year-old male, body weight 271 pounds, height of 5 feet 10 inches, BMI of 39, had symptoms of sleep apnea with snoring, daytime sleepiness, [place] sleepiness scale (ESS) of 17/24. METHOD USED: [...] Paykel Vitera full face mask, medium size. ??Pressure [...] mask, medium size. ??Close followup including downloads, byrf-vw-omxj evaluation. 2. ??Patient will need further detailed [...] is required. Elina Siegel MD FCCP Diplomate, [place] Board of sleep Medicine D: ??07/30/2020 04:02 PM #[id number] T: ??07/30/2020 04:33 PM /NTS Procedure Note Des Siegel MD - 07/30/2020 SLEEP STUDY PLUS CPAP TITRATION ORDERED BY: Vernon Mercedes MD. INDICATION: To assess for sleep apnea. Patient with snoring and daytimesleepiness. A 60-year-old male, body weight 271 pounds, height of 5 feet 10 inches,BMI of 39, had symptoms of sleep apnea with snoring, daytime sleepiness,[place] sleepiness scale (ESS) of 17/24. METHOD USED: [...] face mask, medium size. Close followup including downloads,eect-ov-yftt evaluation. 2. Patient will need further detailed [...] is required. Elina Siegel MD FCCP Diplomate, [place] Board of sleep Medicine #[id number] /NTS Vernon Mercedes MD SLEEP CENTER ORDERABLES Final Result ESCRIPTION documented in this encounter Visit Diagnoses Diagnosis Sleep apnea- Primary Unspecified sleep apnea Sleep apnea Unspecified sleep apnea documented in this encounter Care Teams Gang Supervisor Pipe Lines Relationship Specialty Start Date End Date Vernon Mercedes MD [address] [place] [phone] PCP - General FAMILY PRACTICE 10/27/15 12/02/21 Evaristo Allan MD [address] [place] [address] [place] Hoisting Laborer CARDIOVASCULAR DISEASE 08/19/16 Raul Santana MD [facility] [place] [address] CLINICAL CARDIAC ELECTROPHYSIOLOGY 06/16/17 Danny Blackwell MD [address] [place] [address] ORTHOPAEDIC SURGERY 05/01/19 Gayle Arce APRN, COMPUTER METEOROLOGIST-C [address] [facility] [address] [place] [phone] NURSE PRACTITIONER 03/03/20 documented as of this encounter
--- OUTSIDE RECORDS SUMMARY | 2024-04-23 04:25 | XMS_ITS | Encounter Summary ---
Author Organization [facility] Address [address] [place] [address]. [place] [address] [place] [address] Care Team Providers Care Cook 3 Pastry Name Role Phone Vernon Mercedes MD Primary Care Provider [phone] Evaristo Allan MD Unavailable Unavailabl Raul Duran MD Unavailable Unavailabl Danny Lopes MD Unavailable [phone] Gayle Arce APRN, DIRECTOR HEART-C Unavailable Encounter Details Date Type Department Care Team (Late st Contact Info) Description 07/14/2020 Transcribe Orders [facility] Pre Access Team [address] [place] [address] Vernon Mercedes MD [address] [place] [address] Social History Tobacco Use Types [...] 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 Not on [...] st Contact Info) Description 04/25/2024 11:00 AM PIGMENT PUSHER Appointment [facility] [address] [place] [address] Ti Bonilla MD [address] [place] [phone] 05/23/2024 3:30 PM PIGMENT PUSHER Office Visit [facility] [facility] [address] [place] [phone] Jyoti Escobar MD [address] [place] [phone] documented as of this encounter Visit Diagnoses Not on filedocumented in this encounter Care Teams Cook 3 Pastry Relationship Specialty Start Date End Date Vernon Mercedes MD [address] [place] [phone] PCP - General FAMILY PRACTICE 10/27/15 12/02/21 Evaristo Allan MD [address] [place] [address] [place] Plater Helper CARDIOVASCULAR DISEASE 08/19/16 Raul Santana MD [address] [place] [address] CLINICAL CARDIAC ELECTROPHYSIOLOGY 06/16/17 Danny Blackwell MD [address] [place] [address] ORTHOPAEDIC SURGERY 05/01/19 Gayle Arce, STEREO MAP PLOTTER OPERATOR, DIRECTOR HEART-C [address] [facility] [address] [place] [address] NURSE PRACTITIONER 03/03/20 documented as of this encounter
--- OUTSIDE RECORDS SUMMARY | 2024-04-23 04:25 | XMS_ITS | Encounter Summary ---
Author Organization [facility] Address [address] [place] [address]. [place] [address] [place] [address] Care Team Providers Care Personal Consultant Name Role Phone Vernon Mercedes MD Primary Care Provider [phone] Evaristo Allan MD Unavailable Unavailabl Raul Duran MD Unavailable Unavailabl Danny Lopes MD Unavailable [phone] Gayle Arce APRN, TILE MOLDER HAND-C Unavailable Reason for Visit * Reason Onset Date Comments Schedule Test 12/23/2020 nuc med stress t est and echo Encounter Details Date Type Department Care Team ([facility] Contact Info) Description 12/23/2020 [facility]phone [facility] [address] [place] [address] Gayle Arce APRN, TILE MOLDER HAND-C [address] [facility] [address] [place] [address] Schedule Test (nuc med stress test and echo) Social History Tobacco Use Types Packs/Day Years [...] 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 A friend answered the phone. I asked to have Evaristo call back. Pt is currently rescheduled for his echo on 01/12/21 @ 1:00, [facility] and his stress test has been rescheduled to 01/13/21 @ 7:15, [facility] as well. Unfortunately, I was not able to schedule both on the same day. Reminder letter mailed and new staff message sent to Gayle Allan's nurses's board. * Mavis Greenfield Jamel - 12/29/2020 3:04 PM CDT Pt called needing to reschedule his stress test and echo scheduled on 01/01/21 at [facility] in [place], due to having a procedure the same day. Pt can be scheduled anytime after 01/01/21. Called and lvm for cardiopulmonary at [facility] advising of same and asked they call [phone]. * Mavis Greenfield Jamel - 12/23/2020 3:08 PM CDT Images from the original note were not included. Gayle Arce APRN, TILE MOLDER HANDKavitaC P Pccl Centralized Scheduling Needs a pharmacologic nuclear stress test and echo in [place]. ??He states any day works. ??He is ok scheduling these on separate days if necessary. ??No need to hold any meds. (CC'd Chart Board 12/23/20) Called and lvm for pt to call to schedule nuc med stress test and echo at [facility] in [place]. Advised pt both have been scheduled for 12/31/20 with an arrival time of 7:15 a.m. Nothing to eat or drink 4 hours prior to and no caffeine products 12 hours prior to. Letter with date, time, location and instructions mailed. Staff message sent to Gayle Arce and Dr. Allan's nurse's board. Asked he call [phone] or the option to schedule if he had any questions or if he neededto reschedule. documented in this encounter Plan of Treatment Upcoming Encounters Date Type Department Care Team (Late st Contact Info) Description 04/25/2024 11:00 AM BALANCE ENGINEER Appointment [facility] [facility] [place] [address] Ti Bonilla MD [address] [place] [phone] 05/23/2024 3:30 PM BALANCE ENGINEER Office Visit [facility] [address] [place] [address] Jyoti Escobar MD [address] [place], [place] [address] documented as of this encounter Visit Diagnoses Not on filedocumented in this encounter Care Teams Personal Consultant Relationship Specialty Start Date End Date Vernon Mercedes MD [address] [place] [address] PCP - General FAMILY PRACTICE 10/27/15 12/02/21 Evaristo Allan MD [facility] [place] [address] [place] Neurological Surgeon CARDIOVASCULAR DISEASE 08/19/16 Raul Santana MD [facility] [place] [address] CLINICAL CARDIAC ELECTROPHYSIOLOGY 06/16/17 Danny Blackwell MD [address] [place] [address] ORTHOPAEDIC SURGERY 05/01/19 Gayle Arce APRN, TILE MOLDER HAND-C [address] [facility] [address] [place] [address] NURSE PRACTITIONER 03/03/20 documented as of this encounter
--- OUTSIDE RECORDS SUMMARY | 2024-04-23 04:25 | XMS_ITS | Encounter Summary ---
Author Organization [facility] Address [address] [place] [address]. 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 Yes 05/20/2021 12:50 PM MARKETING PRODUCTION COORDINATOR documented as of this encounter Functional Status [...] Contact Info) Description 04/25/2024 11:00 AM MARKETING PRODUCTION COORDINATOR Appointment [facility] [address] [place] [address] Ti Bonilla MD [address] [place] [phone] 05/23/2024 3:30 PM MARKETING PRODUCTION COORDINATOR Office Visit [facility] [address] [place] [address] Jyoti Escobar MD [address] [place] [address] documented as of this encounter Visit Diagnoses Not on filedocumented in this encounter Care Teams Yield Engineer Relationship Specialty Start Date End Date Vernon Mercedes MD [address] [place] [address] PCP - General FAMILY PRACTICE 10/27/15 12/02/21 [place] [address] [place] Explosive Man CARDIOVASCULAR DISEASE 08/19/16 Raul Santana MD [address] [place] [address] CLINICAL CARDIAC ELECTROPHYSIOLOGY 06/16/17 Danny Blackwell MD [address] [place] [address] ORTHOPAEDIC SURGERY 05/01/19 Gayle Arce, OPHTHALMIC DISPENSER, SALAD BAR CLERK-C [address] [facility] [address] [place] [phone] NURSE PRACTITIONER 03/03/20 documented as of this encounter
--- OUTSIDE RECORDS SUMMARY | 2024-04-23 04:25 | XMS_ITS | Encounter Summary ---
Author Organization [facility] Address [address] [place] [address]. [place], [place] [address] [place] [address] Care Team Providers Care Data Entry Assistant Name Role Phone Vernon Mercedes MD Primary Care Provider [phone] Evaristo Allan MD Unavailable Unavailabl Raul Duran MD Unavailable Unavailabl Danny Lopes MD Unavailable [phone] Gayle Arce APRN CLOTH FOLDER HAND-C Unavailable Encounter Details Date Type Department Care Team (Late st Contact Info) Description 04/16/2021 Orders Only [facility] [address] [place] [address] Vernon Mercedes MD [address] [place] [address] Social History Tobacco Use Types [...] 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 No / Unsure 04/16/2021 12:02 PM STAFFING ADMINISTRATOR documented as of this encounter Functional Status [...] st Contact Info) Description 04/25/2024 11:00 AM STAFFING ADMINISTRATOR Appointment [facility] [address] [place] [address] Ti Bonilla MD [address] [place] [phone] 05/23/2024 3:30 PM STAFFING ADMINISTRATOR Office Visit [facility] [address] [place] [address] Jyoti Escobar MD [address] [place] [address] documented as of this encounter Results * (ABNORMAL) CORONAVIRUS (COVID-19) ANTIGEN DIRECT OPTICAL (04/16/2021 12:21 PM STAFFING ADMINISTRATOR) CORONAVIRUS ANTIGEN IA POSITIVE(AA ) NEGATIVE 04/16/2021 12:50 PM STAFFING ADMINISTRATOR [facility] Comment: CALLED TO SIRISHA AT 1246 READ BACK AND VERIFIED CRITICAL VALUE THIS TEST HAS BEEN AUTHORIZED BY THE FDA UNDER AN EMERGENCY USE AUTHORIZATION (EUA) FOR USE BY AUTHORIZED LABORATORIES. SPECIMEN TYPE NASAL 04/16/2021 12:33 PM STAFFING ADMINISTRATOR [facility] FIRST TEST NO 04/16/2021 12:33 PM STAFFING ADMINISTRATOR [facility] EMPLOYED IN HEALTHCARE YES 04/16/2021 12:33 PM STAFFING ADMINISTRATOR [facility] SYMPTOMATIC DEFINED BY CDC YES 04/16/2021 12:33 PM STAFFING ADMINISTRATOR [facility] DATE OF SYMPTOM ONSET [id number]/16/2021 12:33 PM STAFFING ADMINISTRATOR [facility] HOSPITALIZATION STATUS NO 04/16/2021 12:33 PM STAFFING ADMINISTRATOR [facility] PATIENT IN ICU NO 04/16/2021 12:33 PM STAFFING ADMINISTRATOR [facility] RESIDENT OF [facility] YES 04/16/2021 12:33 PM STAFFING ADMINISTRATOR [facility] Specimen from nose (specimen) NASAL STRUCTURE / Unknown 04/16/2021 12:21 PM STAFFING ADMINISTRATOR Vernon Mercedes MD MICROBIOLOGY - GENERAL ORDERA BLES Final Result [facility] [address] [place] [address], documented in this encounter Visit Diagnoses Diagnosis Sinusitis- Primary Unspecified sinusitis (chronic) documented in this encounter Additional Health Concerns Infection Onset Date Last Indicated Resolved Time COVID-19 Rule Out 04/16/2021 04/16/2021 04/16/2021 12:50 PM STAFFING ADMINISTRATOR COVID-19 Confirmed 04/16/2021 04/16/2021 12:32 AM STAFFING ADMINISTRATOR documented as of this encounter Care Teams Data Entry Assistant Relationship Specialty Start Date End Date Vernon Mercedes MD [address] [place] [address] PCP - General FAMILY PRACTICE 10/27/15 12/02/21 Evaristo Allan MD [address] [facility] [place] [address] [place] Bed Placement Coordinator CARDIOVASCULAR DISEASE 08/19/16 Raul Santana MD [address] [place] [address] CLINICAL CARDIAC ELECTROPHYSIOLOGY 06/16/17 Danny Blackwell MD [address] [place] [address] ORTHOPAEDIC SURGERY 05/01/19 Gayle Arce, STRATEGY LEAD, CLOTH FOLDER HAND-C [address] [facility] [address] [place] [address] NURSE PRACTITIONER 03/03/20 documented as of this encounter
--- OUTSIDE RECORDS SUMMARY | 2024-04-23 04:25 | XMS_ITS | Encounter Summary ---
Author Organization [facility] Address [address] [place] [address]. 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 Not on [...] st Contact Info) Description 04/25/2024 11:00 AM PROP SAWYER Appointment [facility] [address] [place] [address] Ti Bonilla MD [address] [place] [phone] 05/23/2024 3:30 PM PROP SAWYER [facility] [address] [place] [address] Jyoti Escobar MD [address] [place] [address] documented as of this encounter Visit Diagnoses Not on filedocumented in this encounter Care Teams Video Editor Relationship Specialty Start Date End Date Vernon Mercedes [place] [address] PCP - General FAMILY PRACTICE 10/27/15 12/02/21 Evaristo Allan MD [address] [place] [address] [place] Stack Supervisor CARDIOVASCULAR DISEASE 08/19/16 Raul Santana MD [address] [place] [address] CLINICAL CARDIAC ELECTROPHYSIOLOGY 06/16/17 Danny Blackwell MD [address] [place] [address] ORTHOPAEDIC SURGERY 05/01/19 Gayle Arce, MOLD SPRAYER, BOTTLE ASSEMBLER-C [address] [facility] [place] [address] [place] [phone] NURSE PRACTITIONER 03/03/20 documented as of this encounter
--- OUTSIDE RECORDS SUMMARY | 2024-04-23 04:25 | XMS_ITS | Encounter Summary ---
Author Organization [facility] Address [address] [place] [address]. [place], [place] [address] [place] [address] Care Team Providers Care Vending Attendant Name Role Phone Ton Mercedes MD Primary Care Provider [phone] Evaristo Allan MD Unavailable UnavailRaul Suresh MD Unavailable Unavailabl Danny Lopes MD Unavailable [phone] Gayle Arce APRN [employer] WORKFLOW CONSULTANT-C Unavailable Encounter Details Date Type Department Care Team (Late st Contact Info) Description 02/24/2021 11:32 AM CLAIMS EXAMINER - 02/24/2021 11:59 PM [facility] Hospital Encounter [facility] [address] [place] [address] Ton Mercedes MD [address] [place] [address] Discharge Disposition: Home or Self [...] 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 No / Unsure 02/24/2021 11:31 AM CLAIMS EXAMINER documented as of this encounter Functional Status [...] PEN NEEDLES 31G X 8 MM [facility] 01/19/2021 aspirin EC 81 MG tablet Take 81 mg by mouth daily. 100 tablet 10/18/2019 atorvastatin 40 MG tablet Take 0.5 tablets [...] st Contact Info) Description 04/25/2024 11:00 AM CLAIMS EXAMINER Appointment [facility] [address] [place] [address] Ti Bonilla MD [address] [place] [phone] 05/23/2024 3:30 PM CLAIMS EXAMINER Office Visit [facility] [address] [place] [phone] Jyoti Escobar MD [address] [place] [address] documented as of this encounter Procedures Procedure Name Priority Date/Time Associated Diagnosis Comments XR CERV SPINE 3V Routine 02/24/2021 12:0 7 PM CLAIMS EXAMINER Neck pain documented in this encounter Results * XR CERV SPINE 3V (02/24/2021 12:07 PM CLAIMS EXAMINER) Anatomical Region Laterality Modality Spine Radiographic Shannan ging 02/24/2021 3:32 PM CLAIMS EXAMINER Impressions 02/24/2021 3:34 PM CLAIMS EXAMINER IMPRESSION: Reversal the normal cervical lordosis. No acute bony abnormality. Referred By: TON MERCEDES Interpreted By: Valeriy Madrid MD, 02/24/2021 3:32 PM Narrative 02/24/2021 3:34 PM CLAIMS EXAMINER 02/24/2021, 11:40 AM. HISTORY: Left-sided neck pain for 4 weeks. Headaches. EXAM: AP, lateral, swimmer's lateral and odontoid view cervical spine. No comparison. FINDINGS: Slight reversal normal cervical lordosis, positional versus muscle spasm. No evidence of acute fracture. No gross bone destruction. No remarkable narrowing of the disc. Tilting of the head toward the right. Separate ossification adjacent to the posterior cortical surface of the spinous process of the T1 vertebra. No precervical soft tissue swelling. Procedure Note Valeriy Madrid MD - 02/24/2021 02/24/2021, 11:40 AM. HISTORY: Left-sided neck pain for 4 weeks. Headaches. EXAM: AP, lateral, swimmer's lateral and odontoid view cervical spine. Nocomparison. FINDINGS: Slight reversal normal cervical lordosis, positional versusmuscle spasm. No evidence of acute fracture. No gross bone destruction. Noremarkable narrowing of the disc. Tilting of the head toward the right.Separate ossification adjacent to the posterior cortical surface of thespinous process of the T1 vertebra. No precervical soft tissue swelling. IMPRESSION: Reversal the normal cervical lordosis. No acute bony abnormality. Referred By: TON MERCEDES Interpreted By: Valeriy Madrid MD, 02/24/2021 3:32 PM us Ton Mercedes MD GENERAL IMAGING Final Result documented in this encounter Visit Diagnoses Diagnosis Neck pain Cervicalgia documented in this encounter Care Teams Vending Attendant Relationship Specialty Start Date End Date Ton Mercedes MD [address] [place] [phone] PCP - General FAMILY PRACTICE 10/27/15 12/02/21 Evaristo Allan MD [facility] [place] [address] [place] Merchandise Coordinator CARDIOVASCULAR DISEASE 08/19/16 Raul Santana MD [facility] [place] [address] CLINICAL CARDIAC ELECTROPHYSIOLOGY 06/16/17 Danny Blackwell MD 5 [place] [address] ORTHOPAEDIC SURGERY 05/01/19 Gayle Arce, BARBARA, S[employer]IOR [employer]IONS WORKFLOW CONSULTANT-C [address] [facility] [address] [place] [address] NURSE PRACTITIONER 03/03/20 documented as of this encounter
--- OUTSIDE RECORDS SUMMARY | 2024-04-23 04:25 | XMS_ITS | Encounter Summary ---
Author Organization [facility] Address [address] [place] [address]. [place], [place] [address] [place] [address] Care Team Providers Care Cobbler Apprentice Name Role Phone Vernon Mercedes MD Primary Care Provider [phone] Evaristo Allan MD Unavailable Unavailabl Raul Duran MD Unavailable Unavailabl Danny Lopes MD Unavailable [phone] Gayle Arce APRN, TOOL DRAWING CHECKER-C Unavailable Encounter Details Date Type Department Care Team (Late st Contact Info) Description 05/19/2021 Orders Only [facility] [facility] [place] [address] [place] [address] [place] [address] Social History Tobacco Use Types Packs/Day Years [...] 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 No / Unsure 05/23/2021 9:00 AM FACULTY DEAN documented as of this encounter Functional Status [...] st Contact Info) Description 04/25/2024 11:00 AM FACULTY DEAN Appointment [facility] [address] [place] [address] Ti Bonilla MD [address] [place] [phone] 05/23/2024 3:30 PM FACULTY DEAN Office Visit [facility] [address] [place] [phone] Jyoti Escobar MD [address] [place] [phone] documented as of this encounter Visit Diagnoses Not on filedocumented in this encounter Additional Health Concerns Infection Onset Date Last Indicated Resolved Time COVID-19 Rule Out 05/23/2021 05/23/2021 05/25/2021 3:02 PM FACULTY DEAN documented as of this encounter Care Teams Cobbler Apprentice Relationship Specialty Start Date End Date Vernon Mercedes MD [address] [place] [phone] PCP - General FAMILY PRACTICE 10/27/15 12/02/21 Evaristo Allan MD [address] [place] [address] [facility] Liaison CARDIOVASCULAR DISEASE 08/19/16 Raul Santana MD [facility] [place] [address] CLINICAL CARDIAC ELECTROPHYSIOLOGY 06/16/17 Danny Blacwkell MD [address] [place] [address] ORTHOPAEDIC SURGERY 05/01/19 Gayle Arce, COMPUTATOR, TOOL DRAWING CHECKER-C [address] [facility] [address] [place] [phone] NURSE PRACTITIONER 03/03/20 documented as of this encounter
--- OUTSIDE RECORDS SUMMARY | 2024-04-23 04:25 | XMS_ITS | Encounter Summary ---
Author Organization [facility] Address [address] [place] [address]. [place], [place] [address] [place] [address] Care Team Providers Care Photoengraving Proofer Name Role Phone Ton Mercedes MD Primary Care Provider [phone] Elza Allan MD Unavailable Unavailabl Raul Duran MD Unavailable Unavailabl Danny Lopes MD Unavailable [phone] Gayle Arce APRN, SUPERINTENDENT METER TESTS-C Unavailable Encounter Details Date Type Department Care Team (Latest Contact Info) Description 05/19/2021 1:08 PM HUMAN RESOURCES SUPPORT SPECIALIST - 05/19/2021 11:59 PM HUMAN RESOURCES SUPPORT SPECIALIST Hospital Encounter [facility] [address] [place] [address] [place] [address] [place] [address] Discharge Disposition: Home or Self Care [...] COVID-19? No / Unsure 04/30/2021 2:41 PM HUMAN RESOURCES SUPPORT SPECIALIST documented as of this encounter Functional Status [...] TRUEPLUS PEN NEEDLES 31G X 8 MM [facility] [place] aspirin EC 81 MG tablet Take [...] skin nightly at bedtime. 12/29/2017 4 LEVEMIR FLEXTOUCH 100 UNIT/ML flextouch PEN 05/01/2021 2 METOPROLOL SUCCINATE ER 100 MG 24 hr tablet TAKE ONE TABLET BY MOUTH TWICE A DAY 60 tablet 1 05/08/2021 2 nitroglycerin 0.[address] [...] Contact Info) Description 04/25/2024 11:00 AM HUMAN RESOURCES SUPPORT SPECIALIST Appointment [facility] [address] [place] [address] Ti Bonilla MD [address] [place] [address] 05/23/2024 3:30 PM HUMAN RESOURCES SUPPORT SPECIALIST Office Visit [facility] [place] [address] Jyoti Escobar MD [address] [place] [address] documented as of this encounter Procedures Procedure Name Priority Date/Time Associated Diagnosis Comments HC CYTOPATH URINE 3-5 MOL PROBES EA SPEC COMP ASSIST-90 Routine 05/19/2021 12:00 PM HUMAN RESOURCES SUPPORT SPECIALIST Microscopic hematuria HC URINALYSIS AUTO W/MICRO Routine 05/19/2021 12:00 PM HUMAN RESOURCES SUPPORT SPECIALIST Microscopic hematuria URINE BACTERIA CULTURE Routine 05/19/2021 12:00 PM HUMAN RESOURCES SUPPORT SPECIALIST Microscopic hematuria CYTOLOGY GENERIC Routine 05/19/2021 12:0 0 AM HUMAN RESOURCES SUPPORT SPECIALIST Microscopic hematuria documented in this encounter Results * BLADDER CANCER, FISH (05/19/2021 12:00 PM HUMAN RESOURCES SUPPORT SPECIALIST) SPECIMEN SOURCE URINE 2 1:11 PM HUMAN RESOURCES SUPPORT SPECIALIST [facility] CLINICAL INDICATION UNKNOWN 05/19/2021 1:11 PM HUMAN RESOURCES SUPPORT SPECIALIST [facility] PRIOR THERAPY/TRANSPLAN T UNKNOWN 05/19/2021 1:11 PM HUMAN RESOURCES SUPPORT SPECIALIST [facility] PHYSICIAN PHONE UNKNOWN 2 1:11 PM HUMAN RESOURCES SUPPORT SPECIALIST [facility] CLIENT PHONE UNKNOWN 05/19/2021 1:11 PM HUMAN RESOURCES SUPPORT SPECIALIST [facility] FISH BLADDER CANCER VOIDED URI REPORT 05/26/2021 10:39 AM HUMAN RESOURCES SUPPORT SPECIALIST [employer] KRYSTYNA BARROW Comment: Order ID: ? [id number] Specimen Type: ?Urine Clinical Indication: ?Not provided RESULT: NEGATIVE RESULT FOR THE UROVYSION FISH ASSAY INTERPRETATION: A normal hybridization pattern was observed for chromosomes 3, 7, 9, and 17. This result is not indicative of bladder cancer according to the UroVysion Directional Insert (Seedcamp/Flux). Although the UroVysion test was designed to detect genetic changes associated with most bladder cancers, not all genetic changes can be detected by this test. The UroVysion test was designed for use on voided urine specimens as an aid for the initial diagnosis of bladder carcinoma in patients with hematuria and subsequent monitoring for tumor recurrence in patients previously diagnosed with bladder cancer. If the test results are not consistent with other clinical findings, a consultation between a pathologist and the treating physician is warranted. Please expect the results of any other concurrent study in a separate report. REFERENCE for SENSITIVITY and SPECIFICITY: Shawna HALIMA and Rayshawn BR. Bladder cancer detection using FISH (UroVysion assay). Adv Bee Pathol 2008;15:279-86. NOMENCLATURE: nuc margy(D3Z1,D7Z1,CDKN2A,D17Z1)x2[30] ASSAY INFORMATION: Method: FISH Manual Analysis Cells Counted: 30 Detection of >/= 4 of the 25 cells showing gains for 2 or more chromosomes (3, 7 or 17) in the same cell, or >/= 12 of the 25 cells having zero 9p21 signals is interpreted as a POSITIVE result. Lucila Norman, Ph.D., [facility], Enrollment Coordinator, Cytogenetics and Genomics, Electronic Signature: ? 05/26/2021 10:53 AM Test Performed by [employer] [place], [employer] [facility], [address] [place] [address] Crow Aldana M.D., Ph.D., Director of Laboratories , [facility] [id number] URINE SPECIMEN / Unknown 05/19/2021 12:00 PM HUMAN RESOURCES SUPPORT SPECIALIST us Ana Moreno III, MD PATHOLOGY/CYTOLOGY ORDER LONG Final Result [facility] , [facility] [address] [place] [address], * CULTURE URINE (05/19/2021 12:00 PM HUMAN RESOURCES SUPPORT SPECIALIST) SPEC DESCRIPTION URINE CLEAN CATCH 05/19/2021 1:08 PM HUMAN RESOURCES SUPPORT SPECIALIST [facility] SPECIAL REQUESTS NO SPECIAL REQUEST 05/19/2021 1:08 PM HUMAN RESOURCES SUPPORT SPECIALIST [facility] CULTURE RESULT FEW CONTAMINANTS 06/2021 1:16 PM HUMAN RESOURCES SUPPORT SPECIALIST [facility] URINE SPECIMEN OBTAINED BY CLEAN CATCH PROCEDURE / Unknown 05/19/2021 12:00 PM HUMAN RESOURCES SUPPORT SPECIALIST 05/19/2021 1:10 PM HUMAN RESOURCES SUPPORT SPECIALIST us Ana Moreno III, MD MICROBIOLOGY - GENERAL O RDERABLES Final Result [facility] [address] [place] [address], [place] [phone] [id number] [facility] [address] [place] [address], [place] [phone] * (ABNORMAL) URINALYSIS (05/19/2021 12:00 PM HUMAN RESOURCES SUPPORT SPECIALIST) COLOR (U) YELLOW 05/19/2021 1:24 PM HUMAN RESOURCES SUPPORT SPECIALIST [facility] TRANSPARENCY CLEAR 05/19/2021 1:24 PM [facility] SPECIFIC GRAVITY (U) 1.010 1.000 - 1.025 05/19/2021 1:24 PM HUMAN RESOURCES SUPPORT SPECIALIST [facility] U PH 5.5 5.0 - 8.0 05/19/2021 1:24 PM HUMAN RESOURCES SUPPORT SPECIALIST [facility] LEUKOCYTES (U) NEGATIVE NEGATIVE 05/19/2021 1:24 PM HUMAN RESOURCES SUPPORT SPECIALIST [facility] NITRITES NEGATIVE NEGATIVE 05/19/2021 1:24 PM [facility] PROTEIN (U) NEGATIVE NEGATIVE 05/19/2021 1:24 PM [facility] URINE GLUCOSE 3+(A) NEGATIVE 05/19/2021 1:24 PM HUMAN RESOURCES SUPPORT SPECIALIST [facility] KETONES MG/DL (U) NEGATIVE NEGATIVE 05/19/2021 1:24 PM [facility] UROBILINOGEN 0.2 <1.0 EU/DL 05/19/2021 1:24 PM HUMAN RESOURCES SUPPORT SPECIALIST [facility] BILIRUBIN (U) NEGATIVE NEGATIVE 05/19/2021 1:24 PM HUMAN RESOURCES SUPPORT SPECIALIST [facility] BLOOD (U) NEGATIVE NEGATIVE 05/19/2021 1:24 PM HUMAN RESOURCES SUPPORT SPECIALIST [facility] WBC/HPF 0-5 0 - 5 /HPF 05/19/2021 1:24 PM HUMAN RESOURCES SUPPORT SPECIALIST [facility] RBC/HPF 0-5 0 - 5 /HPF 05/19/2021 1:24 PM HUMAN RESOURCES SUPPORT SPECIALIST [facility] EPI/HPF OCCASIONAL /LPF 05/19/2021 1:24 PM HUMAN RESOURCES SUPPORT SPECIALIST [facility] BACTERIA (U) TRACE /HPF 05/19/2021 1:24 PM HUMAN RESOURCES SUPPORT SPECIALIST [facility] URINE SPECIMEN OBTAINED BY CLEAN CATCH PROCEDURE / Unknown 05/19/2021 12:00 PM HUMAN RESOURCES SUPPORT SPECIALIST us Ana Moreno III, MD URINE ORDERABLES Final R esult [facility] [address] [place] [address], * CYTOLOGY GENERIC (05/19/2021 12:00 AM HUMAN RESOURCES SUPPORT SPECIALIST) CYTOLOGY OTHER [facility] ? Department of Laboratory Medicine ?[address] [facility] ?[place] [address] ? , extension [phone] ? Pathology Report ? Non-gynecologic Cytology Report Name: ELZA MCKEON ?Specimen #: [id number] Age: 9 1960 (Age: 61) ?Location: [facility] Sex: M ?Procedure Date: 05/19/2021 Hospital #: [id number] ?Date Received: 05/21/2021 Date Reported: 05/25/2021 Provider: ANA MORENO III, MD ?TON MERCEDES MD Source: URINE, VOIDED Clinical History: Hematuria Gross Description: SPECIMEN RECEIVED: ? 40 cc's of light yellow fluid ? SLIDES PREPARED: ?1 ThinPrep ?STAINS: ? Papanicolaou This case was interpreted and signed out at [facility], [address] [place] [address], [place], [place], [facility]. FINAL DIAGNOSIS: URINE, VOIDED: ? - ADEQUATE FOR EVALUATION. ? - NEGATIVE FOR HIGH-GRADE UROTHELIAL CARCINOMA. Electronically Signed Out ? DAVID ZAMORA MD [facility] 05/19/2021 05/21/2021 12: 43 PM HUMAN RESOURCES SUPPORT SPECIALIST Comment:URINE, VOIDED us Ana Moreno III, MD PATHOLOGY/CYTOLOGY ORDER LONG Final Result [facility] [address] [place] [address], [id number] documented in this encounter Visit Diagnoses Diagnosis Microscopic hematuria documented in this encounter Care Teams Photoengraving Proofer Relationship Specialty Start Date End Date Ton Mercedes MD [address] [place] [phone] PCP - General FAMILY PRACTICE 10/27/15 12/02/21 Elza Allan MD [address] [place] [address] Odon Bag Shop Worker CARDIOVASCULAR DISEASE 08/19/16 Raul Santana MD [facility] [place] [address] CLINICAL CARDIAC ELECTROPHYSIOLOGY 06/16/17 Danny Blackwell MD [address] [place] [address] ORTHOPAEDIC SURGERY 05/01/19 Gayle Arce, PRINCIPAL JAVA SOFTWARE ENGINEER, SUPERINTENDENT METER TESTS-C [address] [facility] [address] [place] [address] NURSE PRACTITIONER 03/03/20 documented as of this encounter
--- OUTSIDE RECORDS SUMMARY | 2024-04-23 04:25 | XMS_ITS | Encounter Summary ---
Author Organization [facility] Address [address] [place] [address]. [place], [place] [address] [place] [address] Care Team Providers Care Gear Tooth Grinding Machine Operator Name Role Phone Ton Delgado MD Primary Care Provider [phone] Evaristo Allan MD Unavailable Unavailabl e Raul Santana MD Unavailable Unavailabl e Danny Blackwell MD Unavailable [phone] Gayle Arce APRN, NP-C Unavailable Reason for Referral * Imaging (Routine) - Closed Specialty Diagnoses / Procedures Referred By Contac t Referred To Contact RADIOLOGY Diagnoses Coronary artery disease involving northwestern shoshone coronary artery of northwestern shoshone heart, unspecified whether angina present Chest pain, unspecified type Tachycardia Procedures USE ECHOCARDIOGRAM USE ECHOCARDIOGRAM Gayle Arce APRN, NP-C [address] [facility] [address] [place] [address] Phone: tel: fax: Referral ID Status Reason Start Date Expiration Date Visits Re quested Visits Authorized [id number] Closed 12/23/2020 01/23/2022 1 1 * Imaging (Routine) - Closed Specialty Diagnoses / Procedures Referred By Contac t Referred To Contact RADIOLOGY Diagnoses Coronary artery disease involving northwestern shoshone coronary artery of northwestern shoshone heart, unspecified whether angina present Chest pain, unspecified type Tachycardia Difficulty walking Procedures NM PHARM NUC STRESS TEST 1DAY NM PHARM NUC STRESS TEST 1DAY Gayle Arce APRN, NP-C [address] [facility] [address] [place] [address] Phone: tel: fax: Referral ID Status Reason Start Date Expiration Date Visits Re quested Visits Authorized [id number] Closed 12/23/2020 01/23/2022 1 1 Reason for Visit * Reason Comments Follow Up Chest Pain Encounter Details Date Type Department Care Team (Late st Contact Info) Description 12/23/2020 9:30 AM CDT Office Visit [facility] [address] [place] [address] Gayle Arce APRN, NP-C [address] [facility] [address] [place] [address] Follow Up; Chest Pain Social History Tobacco Use Types Packs/Day Years [...] Sign Reading Time Taken Comments Blood Pressure 122/86 12/23/2020 9:43 AM CDT Pulse 102 12/23/2020 9:43 AM CDT Temperature - - Respiratory Rate 18 12/23/2020 9:43 AM CDT Oxygen Saturation - - Inhaled Oxygen Concentration - - Weight 120.7 kg (266 lb) 12/23/2020 9:43 AM CDT Height 180.3 cm (5' 11 ) 12/23/2020 9:43 AM CDT Body Mass Index 37.1 12/23/2020 9:43 AM CDT documented in this encounter Functional [...] Patient Instructions* Gayle Arce APRN, NP-C - 12/23/2020 9:30 AM CDT 1. Increase metoprolol to 100 mg twice a day. 2. Stop spironolactone. 3. Stress test and echocardiogram in [place]. 4. If no abnormalities found, will send you back to Dr. Santana's office. documented in this encounter Progress Notes * Gayle Arce APRN, NP-C - 12/23/2020 9:30 AM CDT FROM: Gayle Arce APRN, NP-C, collaborating physician Evaristo Allan III, M.D. RE: Evaristo Zelaya : 1960 Reason for Visit: Follow Up and Chest Pain History of Present Illness: Mr. Zelaya is a pleasant 60-year-old male seen in the cardiology clinic today for a followup visit regarding chest pain. He has a history of coronary artery disease s/p SECRETARY BOOKKEEPER PCI on 03/24/18, atrial fibrillation s/p ablation in 2017, hypertension, hyperlipidemia, diabetes, and sleep apnea. He tells me that for the past several months, he has been developing left chest pain with radiationto his left elbow. This occurs off and on , and not daily. He has not noticed a specific association with exertion. However, he does state that the pain is progressing. He has not yet had to take a nitroglycerin, but reports that he was close to proceeding to the hospital on a couple occasions. Itis reminiscent of his previous heart pain, but may be even a little worse. He denies any shortness of breath. He denies any claudication. He denies any overt symptoms of congestive heart failure suchas paroxysmal nocturnal dyspnea, orthopnea, or significant pedal edema. He does have occasional edema around his ankle by the end of the day. He has frequent palpitations. These feel like a racing heartbeat. He was told by Dr. Delgado's office that he was in atrial fibrillation. He is still lightheaded frequently. He denies any syncopal episodes. His lightheadedness is worse with rising to a standing position. He also states that he has to hang onto objects when walking through his house occasionally. He denies signs and symptoms of CVA or TIA. He seems to be tolerating his present medications well without reported side effects. He denies signs of bleeding. Evaluation during the clinic visit included an EKG which confirmed the presence of sinus tachycardia rhythm at a rate of 102 beats per minute with an incomplete right bundle branch block. Recommendations/Plan: Mr. Zelaya complains of progressing chest discomfort. This has typical and atypical features. His last cardiac catheterization in 2019 noted patent proximal and mid RCA stent with a 40% mid RCA lesionwith an FFR of 0.9. Given his progressive symptoms, further ischemic evaluation is warranted. He is tachycardic in the office today. He has been tachycardic since last fall, which was around the timeof starting carbidopa-levodopa. He had a 48-hour monitor last February that revealed sinus tachycardia without definite episodes of atrial fibrillation or atrial flutter. He continues to be tachycardic despite advancing his metoprolol. He also has orthostatic hypotension symptoms. Further medication adjustments and close monitoring seem most appropriate at the present time as well. I have recommended the following to Mr. Zelaya: 1. Chest Pain, CAD, Difficulty Walking. We will order a pharmacological nuclear stress test to ruleout ischemia. He will continue his aspirin and statin. 2. Atrial Fibrillation, Tachycardia, Lightheadedness. He has been tachycardic for almost a year. Wewill order an echocardiogram to ensure there is structural heart status is stable. I will call his primary care office for his most recent labs. With his orthostatic hypotension, I have advised him to stop his spironolactone. I have also asked him to increase his metoprolol from 100 mg daily to twice daily. He is in sinus rhythm in the office today, and his last monitor did not identify any evidence of atrial fibrillation. If his stress test and echocardiogram are stable, and his heart rate does not improve with the metoprolol, we will then send him back to Dr. Santana's office for further evaluation into his underlying rhythm. He is anticoagulated with Pradaxa. 3. Hypertension. His blood pressure is well controlled in the office today. 4. Hyperlipidemia. He is currently treated with atorvastatin and denies any reported side effects. An LDL less than 70 is recommended. We will plan to see Mr. Zelaya in six months pending his final results. I have encouraged him to contact me in the meantime should he have any questions or problems. Medications: Current Outpatient Medications: ??? amitriptyline 100 MG tablet, Take 100 mg by mouth daily., Disp: , Rfl: ??? aspirin EC 81 [...] MG capsule, Take 300 mg by mouth 2 (two) times a day. , Disp: , Rfl: ??? LEVEMIR 100 UNIT/ML injection, Inject 44 Units into the skin nightly at bedtime. , Disp: , Rfl: ??? metFORMIN 850 MG tablet, Take 850 mg by mouth 2 (two) times daily with meals. , Disp: , Rfl: ??? metoprolol succinate ER 100 MG 24 hr tablet, Take 1 tablet (100 mg total) by mouth 2 (two) times a day., Disp: 60 tablet, Rfl: 1 ??? nitroglycerin 0.4 MG SL tablet, Place 1 tablet (0.4 mg total) under the tongue every 5 (five) minutes as needed for Chest Pain., Disp: 25 tablet, Rfl: 1 ??? NOVOLOG FLEXPEN 100 UNIT/ML injection (PEN), Inject 42 Units as directed 3 (three) times daily before meals. And 44 units in the morning, Disp: , Rfl: ??? PRADAXA 150 MG Cap, TAKE ONE CAPSULE BY MOUTH TWICE A DAY, Disp: 180 capsule, Rfl: 0 ??? tamsulosin 0.4 MG Cap, Take 0.4 mg by mouth daily., Disp: , Rfl: ??? traMADol 50 MG tablet, Take 1 tablet by mouth 3 (three) times a day. , Disp: , Rfl: ??? COMPRESSION STOCKINGS, 20-30 mmhg by Does not apply route daily., Disp: 1 Container, Rfl: 1 Allergies Allergen Reactions ??? Doxycycline Other (see [...] CATHETERIZATION 01/04/2018 occluded prox RCA w/well developed srgl-mv-wautu collaterals lvef 55-60% ??? CARDIAC CATHETERIZATION 11/13/2018 ??? FRACTURE SURGERY ??? 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 HERNIA REPAIR ??? JOINT REPLACEMENT ??? KNEE ARTHROPLASTY Bilateral ??? LITHOTRIPSY ??? XA ABLATION 05/19/2016 ??? XA CORONARY INTERVENTION 03/24/2018 SECRETARY BOOKKEEPER PCI-mid RCA Social History Tobacco Use ??? [...] Cardiovascular: See HPI. Positive for chest pain, palpitations and leg swelling. Gastrointestinal: Negative for blood in stool and melena. Genitourinary: Negative for dysuria. Musculoskeletal: Negative for myalgias and new or worsening joint stiffness/pain. Skin: Negative for rash. Neurological: Positive for dizziness. Negative for tingling/numbness and focal weakness. Endo/Heme/Allergies: Negative for new or significant bruising/bleeding and polydipsia. Psychiatric/Behavioral: Negative for depression and new or significant memory loss. Vitals: 12/23/20 0943 BP: 122/86 Patient Position: Sitting BP Location: Left arm Pulse: 102 Weight: 120.7 kg (266 lb) Height: 5' 11 (1.803 m) Body mass index is 37.1 kg/m??. Cardiac Exam Rate/Rhythm: Regular rhythm. Tachycardia [...] Bowel sounds normal. No distension. No tenderness. Abdominal aorta not palpably enlarged. No abdominal bruit present. Pulmonary: Effort normal. Breath sounds normal. Skin: Dry. Warm. No rash. No jaundice. No cyanosis. No clubbing. No xanthoma. Musculoskeletal: No kyphosis. Normal ROM. Neurological: Alert. Oriented x 3. Comments: Diagnoses/Impression: 1. Coronary artery disease involving northwestern shoshone coronary artery of northwestern shoshone heart, unspecified whether angina present NM PHARM NUC STRESS TEST 1DAY USE ECHOCARDIOGRAM CANCELED: USE ECHOCARDIOGRAM CANCELED: NM PHARM NUC STRESS TEST 1DAY 2. Chest pain, unspecified type NM PHARM NUC STRESS TEST 1DAY USE ECHOCARDIOGRAM CANCELED: USE ECHOCARDIOGRAM CANCELED: NM PHARM NUC STRESS TEST 1DAY 3. Difficulty walking NM PHARM NUC STRESS TEST 1DAY CANCELED: NM PHARM NUC STRESS TEST 1DAY 4. Tachycardia NM PHARM NUC STRESS TEST 1DAY USE ECHOCARDIOGRAM CANCELED: USE ECHOCARDIOGRAM CANCELED: NM PHARM NUC STRESS TEST 1DAY 5. Paroxysmal atrial fibrillation (CMS/HCC) 6. Essential hypertension 7. Hyperlipidemia, unspecified hyperlipidemia type Referring Provider: Ton Delgado MD PCP: TON DELGADO MD documented in this encounter Plan of Treatment Upcoming Encounters Date Type Department Care Team (Late st Contact Info) Description 04/25/2024 11:00 AM ARCHITECTURAL TECHNOLOGIST Appointment [facility] [address] [place] [address] Ti Bonilla MD [address] [place] [address] 05/23/2024 3:30 PM ARCHITECTURAL TECHNOLOGIST Office Visit [facility] [address] [place] [phone] Jyoti Escobar MD [address] [place] [address] documented as of this encounter Results * NM PHARM NUC STRESS TEST 1DAY (01/13/2021 10:23 AM CDT) Anatomical Region Laterality Modality Cardiac Nuclear Medicine PELON Umana APRN NUC MED Final Result * USE ECHOCARDIOGRAM (01/12/2021 1:57 PM CDT) Anatomical Region Laterality Modality Cardiac Ultrasound PELON Umana APRN ECHO Final Result documented in this encounter Visit Diagnoses Diagnosis Coronary artery disease involving northwestern shoshone coronary artery of northwestern shoshone heart, unspecified whether angina present- Primary Chest pain, unspecified type Difficulty walking Difficulty in walking Tachycardia Tachycardia, unspecified Paroxysmal atrial fibrillation ([facility]) Atrial fibrillation Essential hypertension Unspecified essential hypertension Hyperlipidemia, unspecified hyperlipidemia type documented in this encounter Care Teams Gear Tooth Grinding Machine Operator Relationship Specialty Start Date End Date Ton Delgado MD [address] [place] [phone] PCP - General FAMILY PRACTICE 10/27/15 12/02/21 Evaristo Allan MD [address] [place] [address] Otley Rough Rice Tender CARDIOVASCULAR DISEASE 08/19/16 Raul Santana MD [address] [place] [phone] CLINICAL CARDIAC ELECTROPHYSIOLOGY 06/16/17 Danny Blackwell MD [address] [place] [address] ORTHOPAEDIC SURGERY 05/01/19 Gayle Arce, DEPORTATION EXAMINER, COOK HELPER-C [address] [facility] [address] [place] [address] NURSE PRACTITIONER 03/03/20 documented as of this encounter
--- OUTSIDE RECORDS SUMMARY | 2024-04-23 04:25 | XMS_ITS | Encounter Summary ---
Author Organization [facility] Address [address] [place] [address]. [place], [place] [address] [place] [address] Care Team Providers Care Client Program Manager Name Role Phone Vernon Merceeds MD Primary Care Provider [phone] Evaristo Allan MD Unavailable UnavailRaul Suresh MD Unavailable Unavailabl Danny Lopes MD Unavailable [phone] Gayle Arce APRN RN ADMISSION-C Unavailable Reason for Referral * Surgical (Routine) - Closed Specialty Diagnoses / Procedures Referred By Charito ledbetter Referred To Contact Diagnoses Microhematuria Procedures Case request operating room: CYSTOSCOPY FLEXIBLE Ana Moreno III, MD Phone: tel: fax: Referral ID Status Reason Start Date Expiration Date Visits Re quested Visits Authorized [id number] Closed 05/19/2021 06/16/2022 1 1 NG MACHINE OPERATOR Encounter Details Date Type Department Care Team (Late st Contact Info) Description 05/19/[address] 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 No / Unsure 04/30/2021 2:41 PM LINING MACHINE OPERATOR documented as of this encounter Functional [...] Rodriguez RN Active documented in this encounter Progress Notes * Mercedes Schaeffer CNA - 05/19/2021 12:56 PM CST Cystoscopy Flexible DOS: 05-26-2021 COVID: 05-23-2021 NG MACHINE OPERATOR documented in this encounter Plan of Treatment Upcoming Encounters Date Type Department Care Team (Shelbi Contact Info) Description 04/25/2024 11:00 AM LINING MACHINE OPERATOR Appointment [facility] [address] [place] [address] Ti Bonilla MD [address] [place] [phone] 05/23/2024 3:30 PM LINING MACHINE OPERATOR Office Visit [facility] [address] [place] [address] Jyoti Escobar MD [address] [place] [address] Scheduled Orders Name Type Priority Associated Diagnoses Orde r Schedule Case request operating room: CYSTOSCOPY FLEXIBLE Case Request Routine Microhematuria Once for 1 Occurrences starting 05/26/2021 until 05/26/2021 documented as of this encounter Visit Diagnoses Diagnosis Microhematuria- Primary Microscopic hematuria Pre-operative laboratory examination Pre-procedural laboratory examination documented in this encounter Care Teams Client Program Manager Relationship Specialty Start Date End Date Vernon Mercedes MD [address] [place] [address] PCP - General FAMILY PRACTICE 10/27/15 12/02/21 Evaristo Allan MD [facility] [place] [address] [place] [employer] Project Coordination Specialist CARDIOVASCULAR DISEASE 08/19/16 Raul Santana MD [address] [place] [address] CLINICAL CARDIAC ELECTROPHYSIOLOGY 06/16/17 Danny Blackwell MD [address] [place] [address] ORTHOPAEDIC SURGERY 05/01/19 Gayle Arce, PARKING ENFORCEMENT MANAGER, RN ADMISSION-C [address] [facility] [address] [place] [address] NURSE PRACTITIONER 03/03/20 documented as of this encounter
--- OUTSIDE RECORDS SUMMARY | 2024-04-23 04:25 | XMS_ITS | Encounter Summary ---
Author Organization [facility] Address [address] [place] [address]. [place], [place] [address] [place] [address] Care Team Providers Care Group Practice Pediatrician Name Role Phone Vernon Mercedes MD Primary Care Provider [phone] Evaristo Allan MD Unavailable Unavailabl e Raul Santana MD Unavailable Unavailabl e Danny Blackwell MD Unavailable [phone] Gayle Arce APRN PRODUCT INFO SPECIALIST-C Unavailable Reason for Visit * Reason Comments Groin Pain Pt to the ER with c/ o hemorrhoid pain and rash to the perineal and groin area. The symptoms have been persistant for 2 weeks. Pt has not seen his PCP. Encounter Details Date Type Department Care Team (Late st Contact Info) Description 10/23/2020 12:07 AM CDT - 10/23/2020 12:48 AM T Emergency [facility] [address] [place] [address] [place] [address] Bj Salinas MD [address] [place] [address] Groin Pain (Pt to the ER with c/o hemorrhoid pain and rash to the perineal and groin area. The symptoms have been persistant for 2 weeks. Pt has not seen his PCP. 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 No / Unsure 10/23/2020 12:05 AM CDT documented as of this encounter Last Filed Vital Signs Vital Sign Reading Time Taken Comments Blood Pressure 129/87 10/23/2020 12:12 AM CDT Pulse 124 10/23/2020 12:12 AM CDT Temperature 36.2 ??C (97.2 ??F) 10/23/2020 12:12 AM C DT Respiratory Rate 17 10/23/2020 12:12 AM CDT Oxygen Saturation 95% 10/23/2020 12:12 AM CDT Inhaled Oxygen Concentration - - Weight 115.2 kg (254 lb) 10/23/2020 12:12 AM CDT Height 180.3 cm (5' 11 ) 10/23/2020 12:12 AM CDT Body Mass Index 35.43 10/23/2020 12:12 AM CDT documented in this encounter Functional [...] cannot be sent through Care Everywhere. * Fungal Skin Rash (Macedonian) * Hemorrhoids ED (Macedonian) documented in this encounter Medications at Time [...] total) by mouth nightly at bedtime. 4 carbidopa-levod opa 25-100 MG tablet Take 1 tablet by mouth 3 (three) times daily. 01/03/2020 2 COMPRESSION STOCKINGSIndica tions:Postural dizziness with near syncope 20-30 mmhg by Does not apply route daily. 1 Container 1 03/06/2020 2 famotidine 20 MG tablet Take 2 tablets by mouth 2 (two) times a day. 08/29/2019 1 fluconazole (DIFLUCAN) 100 MG tabletIndicatio ns:Tinea cruris Take 1 tablet (100 mg total) by mouth daily for 7 days. 7 tablet 10/23/2020 1 furosemide 20 MG tablet Take 20 mg by mouth daily. 01/28/2017 2 gabapentin 300 MG capsule Take 300 mg by mouth 3 (three) times daily. 02/06/2018 4 HYDROcodone-bear taminophen 5-325 MG tabletIndicatio ns:Acute Pain < 3 Day Supply Take 1-2 tablets by mouth every 6 (six) hours as needed. Indications: Acute Pain < 3 Day Supply 12 tablet 10/23/2020 1 hydrocortisone 25 MG suppositoryIndi cations:Hemorrh oid Place 1 suppository (25 mg total) rectally 2 (two) times daily as needed for Hemorrhoids. 12 suppository 10/23/2020 1 LEVEMIR 100 UNIT/ML injection Inject 44 Units into the skin nightly at bedtime. 12/29/2017 4 metoprolol succinate ER 50 MG 24 hr tablet Take 50 mg by mouth daily. 1 nitroglycerin 0.[address] 1 tablet (0.4 mg total) under the tongue every 5 (five) minutes as needed for Chest Pain. 25 tablet 1 01/04/2018 4 nystatin powderIndicatio ns:Tinea cruris Apply topically 2 (two) times daily. 60 g 10/23/2020 1 PRADAXA 150 MG Cap TAKE ONE CAPSULE BY MOUTH TWICE A DAY 180 capsule 07/23/2020 1 spironolactone 25 MG tablet Take 0.5 tablets (12.5 mg total) by mouth daily. 30 tablet 03/31/2020 1 tamsulosin 0.4 MG Cap Take 1 capsule (0.4 mg total) by mouth daily. 4 documented as of this encounter ED Notes * Bj Salinas MD - 10/23/2020 12:06 AM CDT eMERGENCY dEPARTMENT eNCOUnter CHIEF COMPLAINT Chief Complaint Patient presents with ??? Groin Pain Pt to the ER with c/o hemorrhoid pain and rash to the perineal and groin area. The symptoms have been persistant for 2 weeks. Pt has not seen his PCP. HPI HPI Evaristo Zelaya is a 60-year-old male who presents to the ER with a complaint of worsening inguinal and rectal pain progressive over the last 2 weeks. Patient has history of diabetes and states that he has had a red rash in both groins and also in the rectal area getting progressively worse forthe last 2 weeks. He also states that he can tell that he has a hemorrhoid that he can feel at times. He has been trying various ointments on the rash without any success. He has never had any like this before denies fevers chills or other complaints. He is also using Preparation H on the hemorrhoid. He states is very uncomfortable. ALLERGIES Allergies Allergen Reactions ??? Doxycycline Other (see comment) Blisters in the mouth ? ? Tetracyclines & Related Other (see comment) Blisters in the mouth CURRENT MEDICATIONS Current Outpatient Medications Medication Sig ??? amitriptyline 50 MG tablet Take 50 mg by mouth nightly at bedtime. ??? aspirin EC 81 MG tablet Take 81 mg by mouth daily. ??? atorvastatin 40 MG tablet Take 40 mg by mouth nightly at bedtime. ??? carbidopa-levodopa 25-100 MG tablet Take 1 tablet by mouth 3 (three) times daily. ??? famotidine 20 MG tablet Take 2 tablets by mouth 2 (two) times a day. ??? fluconazole (DIFLUCAN) 100 MG tablet Take 1 tablet (100 mg total) by mouth daily for 7 days. ??? furosemide 20 MG tablet Take 20 mg by mouth daily. ??? gabapentin 300 MG capsule Take 300 mg by mouth 3 (three) times daily. ??? HYDROcodone-acetaminophen 5-325 MG tablet Take 1-2 tablets by mouth every 6 (six) hours as needed. Indications: Acute Pain < 3 Day Supply ??? hydrocortisone [address] 1 suppository (25 mg total) rectally 2 (two) times dailyas needed for Hemorrhoids. ??? LEVEMIR 100 UNIT/ML injection Inject 40 Units into the skin nightly at bedtime. ??? nitroglycerin 0.[address] 1 tablet (0.4 mg total) under the tongue every 5 (five) minutes as needed for Chest Pain. ??? NOVOLOG FLEXPEN 100 UNIT/ML injection (PEN) Inject 40 Units as directed. ??? nystatin powder Apply topically 2 (two) times daily. ??? PRADAXA 150 MG Cap TAKE ONE CAPSULE BY MOUTH TWICE A DAY ??? spironolactone 25 MG tablet Take 0.5 tablets (12.5 mg total) by mouth daily. ??? tamsulosin 0.4 MG Cap Take 0.4 mg by mouth daily. ??? traMADol 50 MG tablet Take 1 tablet by mouth 2 (two) times a day. ??? COMPRESSION STOCKINGS 20-30 mmhg by Does not apply route daily. ??? metFORMIN 850 MG tablet Take 850 mg by mouth 2 (two) times daily with meals. ??? metoprolol succinate ER 50 MG 24 hr tablet Take 50 mg by mouth daily. PAST MEDICAL HISTORY Past Medical History: Diagnosis Date ??? Abnormal stress test ??? Arthritis ??? 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 Coronary artery disease ??? Diabetes (CMS/HCC) ??? Fatigue ??? GERD (gastroesophageal reflux disease) ??? Headache ??? Hyperlipidemia ??? Hypertension has had elevated B/P readings ??? Kidney stone ??? SARAI on CPAP ??? Paroxysmal atrial fibrillation (CMS/HCC) ??? PONV (postoperative nausea and vomiting) SURGICAL HISTORY Past Surgical History: Procedure Laterality Date ??? CARDIAC CATHETERIZATION 01/04/2018 occluded prox RCA w/well developed skrk-hy-wfdco collaterals lvef 55-60% ??? CARDIAC CATHETERIZATION 11/13/2018 ??? FRACTURE SURGERY ??? 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 HERNIA REPAIR ??? JOINT REPLACEMENT ??? KNEE ARTHROPLASTY Bilateral ??? LITHOTRIPSY ??? XA ABLATION 05/19/2016 ??? 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 Marital status: Spouse name: Not on file ??? Number of children: 1 ??? Years of education: Not on file ??? Highest education level: Not on file Occupational History ??? 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 Smoking status: Never Smoker ??? Smokeless tobacco: Never Used Substance and Sexual Activity ??? Alcohol use: Yes Comment: social ??? Drug use: No ??? Sexual activity: Not on file Other Topics Concern ??? Exercise Yes Comment: walking ??? Special Diet No ??? Caffeine Concern Yes Social History Narrative ??? Not on file Social Determinants of Health Financial Resource Strain: ??? Difficulty of Paying Living Expenses: Food Insecurity: ??? Worried About Running Out of Food in the Last Year: ??? Ran Out of Food in the Last Year: Transportation Needs: ??? Lack of Transportation (Medical): ??? Lack of Transportation (Non-Medical): Physical Activity: ??? Days of Exercise per Week: ??? Minutes of Exercise per Session: Stress: ??? Feeling of Stress : Social Connections: ??? Frequency of Communication with Friends and Family: ??? Frequency of Social Gatherings with Friends and Family: ??? Attends Hoahaoism Services: ??? Active Member of Clubs or Organizations: ??? Attends Club or Organization Meetings: ??? Marital Status: Intimate Partner Violence: ??? Fear of Current or Ex-Partner: ??? Emotionally Abused: ??? Physically Abused: ??? Sexually Abused: FAMILY HISTORY Family History Problem Relation Name Age of Onset ??? Hypertension Mother ??? Hypertension Sister ??? Cancer Brother ??? Diabetes Brother ??? Other (PVD) Brother ??? Hypertension Sister ??? No Known Problems Father ??? No Known Problems Paternal Grandfather ??? No Known Problems Paternal Grandmother ??? No Known Problems Maternal Grandfather ??? No Known Problems Maternal Grandmother REVIEW OF SYSTEMS Review of Systems All other ROS negative unless noted above in HPI. PHYSICAL EXAM Physical Exam Filed Vitals: 10/23/20 0012 BP: 129/87 Pulse: 124 Resp: 17 Temp: 97.2 ??F (36.2 ??C) TempSrc: Temporal SpO2: 95% Weight: 115.2 kg (254 lb) Height: 5' 11 (1.803 m) The patient is a well developed and well nourished adult male in moderate painful distress, alert and oriented. HEENT: PERRL, EOMI Throat without lesions, mucous membranes moist NECK: Supple without adenopathy or rigidity CHEST: Respirations are easy and unlabored ABD: Soft, NABS, non tender, bilateral tinea cruris with the skin infection also on portion of the scrotum and in the perianal area, there is one small hemorrhoid palpated that is tender but does notappear to be thrombosed EXT: No clubbing, cyanosis, edema NEURO: CN II-XII intact, no focal weakness EKG RADIOLOGY No orders to display LABS No results found for this visit on 10/23/20. ED MEDICATIONS Medications HYDROcodone-acetaminophen (NORCO) 5-325 MG tablet 2 tablet (2 tablets Oral Given 10/23/2046) fluconazole (DIFLUCAN) tablet 200 mg (200 mg Oral Given 10/23/2046) nystatin (MYCOSTATIN) powder ( Topical Given 10/23/2046) PROCEDURES Procedures CONSULTS: ED COURSE & MEDICAL DECISION MAKING MDM Because of the severity of the tinea infection going to treat this patient both topically as well as with oral medications which were initiated in the emergency department. We will also attempt to treat his pain and try a different medication for the hemorrhoid while recommending close outpatient follow-up. FINAL IMPRESSION SNOMED CT(R) 1. Tinea cruris TINEA CRURIS 2. Hemorrhoid HEMORRHOIDS Vernon Mercedes MD [address] [place] [address] In 2 days If symptoms worsen Discharge Medication List as of 10/23/2020 12:43 AM START taking these medications Details fluconazole (DIFLUCAN) 100 MG tablet Take 1 tablet (100 mg total) by mouth daily for 7 days., Starting [facility]ika 10/23/2020, Until [facility] 10/30/2020, Eprescribe HYDROcodone-acetaminophen 5-325 MG tablet Take 1-2 tablets by mouth every 6 (six) hours as needed. Indications: Acute Pain < 3 Day Supply, Starting [facility] 10/23/2020, Eprescribe hydrocortisone [address] 1 suppository (25 mg total) rectally 2 (two) times daily as needed for Hemorrhoids., Starting [facility] 10/23/2020, Until [place] 11/02/2020, Eprescribe nystatin powder Apply topically 2 (two) times daily., Starting [facility] 10/23/2020, Se[place] Bj Salinas MD 10/23/20 0056 documented in this encounter Plan of Treatment Upcoming Encounters Date Type Department Care Team (Late st Contact Info) Description 04/25/2024 11:00 AM LEAD QA ANALYST Appointment [facility] [address] [facility] [address] Ti Bonilla MD [address] [place] [phone] 05/23/2024 3:30 PM LEAD QA ANALYST Office Visit [facility] [place] [phone] Jyoti Escobar MD [address] [place] [address] documented as of this encounter Visit Diagnoses Diagnosis Tinea cruris- Primary Dermatophytosis of groin and perianal area Hemorrhoid Unspecified hemorrhoids without mention of complication documented in this encounter Administered Medications Inactive Administered Medications - up to 3 most recent administrations Medication Order MAR Action Action Date Dose Rate Site fluconazole (DIFLUCAN) tablet 200 mg 200 mg, Oral, Once, 1 dose, On [facility]ika 10/23/20 at 0045 Given 10/23/2020 12:47 AM CDT 200 mg HYDROcodone-acetaminophen (NORCO) 5-325 MG tablet 2 tablet 2 tablet, Oral, Once, 1 dose, On [facility]ika 10/23/20 at 0045, Maximum dose of acetaminophen is 4000 mg from all sources in 24 hours. Given 10/23/2020 12:47 AM CDT 2 tablets nystatin (MYCOSTATIN) powder Topical, 2 times daily, 1 dose, First dose on [facility]ika 10/23/20 at 0045, MEDICATION FOR TAKE HOME Given 10/23/2020 12:47 AM CDT documented in this encounter Active and Recently Administered Medications Times are shown in CDT. Scheduled Medication Order 10/21/2020 10/22/2020 10/23/2020 fluconazole (DIFLUCAN) tablet 200 mg (COMPLETED) 200 mg, Oral, Once, 1 dose, On [facility]ika 10/23/20 at 0045 0047 (Given - Provid er: Roya Saucedo RN) HYDROcodone-acetaminophen (NORCO) 5-325 MG tablet 2 tablet (COMPLETED) 2 tablet, Oral, Once, 1 dose, On [facility]ika 10/23/20 at 0045, Maximum dose of acetaminophen is 4000 mg from all sources in 24 hours. 0047 (Given - Provid er: Roya Saucedo RN) nystatin (MYCOSTATIN) powder (COMPLETED) Topical, 2 times daily, 1 dose, First dose on Vika 10/23/20 at 0045, MEDICATION FOR TAKE HOME 0047 (Given - Provid er: Roya Saucedo RN) documented in this encounter Care Teams Group Practice Pediatrician Relationship Specialty Start Date End Date Vernon Mercedes MD [address] [place] [phone] PCP - General FAMILY PRACTICE 10/27/15 12/02/21 Evaristo Allan MD [address] [place] [address] [place] Executive Manager CARDIOVASCULAR DISEASE 08/19/16 Raul Santana MD [address] [place] [address] CLINICAL CARDIAC ELECTROPHYSIOLOGY 06/16/17 Danny Blackwell MD [address] [place] [address] ORTHOPAEDIC SURGERY 05/01/19 Gayle Arce, MACHINE SHOP APPRENTICE, PRODUCT INFO SPECIALIST-C [address] [facility] [address] [place] [address] NURSE PRACTITIONER 03/03/20 documented as of this encounter
--- OUTSIDE RECORDS SUMMARY | 2024-04-23 04:25 | XMS_ITS | Encounter Summary ---
Author Organization [facility] Address [address] [place] [address]. [place] [address] [place] [address] Care Team Providers Care Business Analyst Ecommerce Name Role Phone Vernon Mercedes MD Primary Care Provider [phone] Evaristo Allan MD Unavailable Unavailabl Raul Duran MD Unavailable Unavailabl Danny Lopes MD Unavailable [phone] Gayle Arce APRN, PADDOCK JUDGE-C Unavailable Reason for Visit * Reason Onset Date Comments Results 01/15/2021 Encounter Details Date Type Department Care Team ([facility] Contact Info) Description 01/15/2021 Telephone [facility] [address] [place] [address] Gayle Arce APRN, PADDOCK JUDGE-C [address] [facility] [address] [place] [address] Results Social History Tobacco Use [...] 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 Zelaya. Informed him that his stress test did not find any evidence of ischemia. His echocardiogram was reassuring with an LVEF of 55 to 60% and no significant valvular disease. On his stress test, it appears that his heart rate has decreased from the 100 bpm to now 84 bpm. He is feeling reasonably well, but did have an episode of chest pain yesterday. He tells me that it did not last long enough to need a nitro. He will continue to monitor his symptoms at this point, and notify the office if they progress. He is scheduled to see Dr. Allan in June. He v/u. documented in this encounter Plan of Treatment Upcoming Encounters Date Type Department Care Team (Late st Contact Info) Description 04/25/2024 11:00 AM VOLUNTEER SERVICES SPECIALIST Appointment [facility] [address] [place] [address] Ti Bonilla MD [address] [place] [phone] 05/23/2024 3:30 PM VOLUNTEER SERVICES SPECIALIST Office Visit [facility] [address] [place] [address] Jyoti Escobar MD [address] [place] [address] documented as of this encounter Visit Diagnoses Not on filedocumented in this encounter Care Teams Business Analyst Ecommerce Relationship Specialty Start Date End Date Vernon Mercedes MD [facility] [place] [address] PCP - General FAMILY PRACTICE 10/27/15 12/02/21 Evaristo Allan MD [address] [place], [place] [address] [place] [address] [employer] Container Finisher CARDIOVASCULAR DISEASE 08/19/16 Raul Santana MD [facility] [place] [address] CLINICAL CARDIAC ELECTROPHYSIOLOGY 06/16/17 Danny Blackwell MD [address] [place] [address] ORTHOPAEDIC SURGERY 05/01/19 Gayle Arce APRN, PADDOCK JUDGE-C [address] [facility] [address] [place] [address] NURSE PRACTITIONER 03/03/20 documented as of this encounter
--- OUTSIDE RECORDS SUMMARY | 2024-04-23 04:25 | XMS_ITS | Encounter Summary ---
Author Organization [facility] Address [address] [place] [address]. 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 No / Unsure 05/26/2021 9:27 AM MARKET SALES MANAGER documented as of this encounter Functional [...] st Contact Info) Description 04/25/2024 11:00 AM MARKET SALES MANAGER Appointment [facility] [address] [place] [address] Ti Bonilla MD [address] [place] [phone] 05/23/2024 3:30 PM MARKET SALES MANAGER Office Visit [facility] [address] [place] [phone] Jyoti Escobar MD [address] [place] [address] documented as of this encounter Visit Diagnoses Not on filedocumented in this encounter Additional Health Concerns Infection Onset Date Last Indicated Resolved Time COVID-19 Rule Out 05/25/2021 05/25/2021 05/26/2021 3:50 AM MARKET SALES MANAGER documented as of this encounter Care Teams Car Salter Relationship Specialty Start Date End Date Vernon Mercedes MD [address] [place] [phone] PCP - General FAMILY PRACTICE 10/27/15 12/02/21 Evaristo Allan MD [address] [facility] [place] [address] [place] Poultry Killer CARDIOVASCULAR DISEASE 08/19/16 Raul Santana MD [address] [place] [address] CLINICAL CARDIAC ELECTROPHYSIOLOGY 06/16/17 Danny Blackwell MD [address] [place] [address] ORTHOPAEDIC SURGERY 05/01/19 Gayle Arce, BARBARA, QUALIFICATIONS EXAMINER-C [address] [facility] [address] [place] [address] NURSE PRACTITIONER 03/03/20 documented as of this encounter
--- OUTSIDE RECORDS SUMMARY | 2024-04-23 04:25 | XMS_ITS | Encounter Summary ---
Author Organization [facility] Address [address] [place] [address]. 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 No / Unsure 05/23/2021 9:00 AM DISCHARGING MACHINE OPERATOR documented as of this encounter [...] st Contact Info) Description 04/25/2024 11:00 AM DISCHARGING MACHINE OPERATOR Appointment [facility] [address] [place] [address] Ti Bonilla MD [address] [place] [phone] 05/23/2024 3:30 PM DISCHARGING MACHINE OPERATOR Office Visit [facility] [address] [place] [phone] Jyoti Escobar MD [address] [place] [address] documented as of this encounter Visit Diagnoses Not on filedocumented in this encounter Additional Health Concerns Infection Onset Date Last Indicated Resolved Time COVID-19 Rule Out 05/23/2021 05/23/2021 05/25/2021 3:02 PM DISCHARGING MACHINE OPERATOR documented as of this encounter Care Teams Materials Manager Relationship Specialty Start Date End Date Vernon Mercedes MD [address] [place] [phone] PCP - General FAMILY PRACTICE 10/27/15 12/02/21 Evaristo Allan MD [address] [place] [address] Feura Bush Lead Refinery Supervisor CARDIOVASCULAR DISEASE 08/19/16 Raul Santana MD [address] [place] [address] CLINICAL CARDIAC ELECTROPHYSIOLOGY 06/16/17 Danny Blackwell MD 5 [place] [address] ORTHOPAEDIC SURGERY 05/01/19 Gayle Arce, BARBARA, CLOTH FINISHING RANGE OPERATOR CHIEF-C [address] [facility] [address] [place] [address] NURSE PRACTITIONER 03/03/20 documented as of this encounter
--- OUTSIDE RECORDS SUMMARY | 2024-04-23 04:25 | XMS_ITS | Encounter Summary ---
Author Organization [facility] Address [address] [place] [address]. [place], [place] [address] [place] [address] Care Team Providers Care House Painter Helper Name Role Phone Vernon Mercdees MD Primary Care Provider [phone] Evaristo Allan MD Unavailable Unavailabl e Raul Santana MD Unavailable Unavailabl e Danny Blackwell MD Unavailable [phone] Gayle Arce APRN, NP-C Unavailable Reason for Referral * Imaging (Routine) - Closed Specialty Diagnoses / Procedures Referred By Contac t Referred To Contact RADIOLOGY Diagnoses Coronary artery disease involving point [place] coronary artery of [place] heart, unspecified whether angina present Chest pain, unspecified type Tachycardia Procedures USE ECHOCARDIOGRAM USE ECHOCARDIOGRAM Gayle Arce APRN, NP-C [address] [facility] [address] [place] [address] Phone: tel: fax: Referral ID Status Reason Start Date Expiration Date Visits Re quested Visits Authorized [id number] Closed 12/23/2020 01/23/2022 1 1 Reason for Visit * Imaging (Routine) - Closed Specialty Diagnoses / Procedures Referred By Contac t Referred To Contact RADIOLOGY Diagnoses Coronary artery disease involving point [place]a coronary artery of [place] heart, unspecified whether angina present Chest pain, unspecified type Tachycardia Procedures USE ECHOCARDIOGRAM USE ECHOCARDIOGRAM Gayle Arce APRN, NP-C [address] [facility] [address] [place] [address] Phone: tel: fax: Referral ID Status Reason Start Date Expiration Date Visits Re quested Visits Authorized [id number] Closed 12/23/2020 01/23/2022 1 1 Encounter Details Date Type Department Care Team (Latest Contact Info) Description 01/12/2021 12:42 PM CDT - 01/12/2021 11:59 PM CDT Hospital Encounter 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 Not on [...] st Contact Info) Description 04/25/2024 11:00 AM MEDIC TECHNICIAN Appointment [facility] [address] [place] [address] [place] [address] Ti Bonilla MD [address] [place] [phone] 05/23/2024 3:30 PM MEDIC TECHNICIAN Office Visit [facility] [address] [place] [address] [place] [address] Jyoti Escobar MD [address] [place] [phone] documented as of this encounter Procedures Procedure Name Priority Date/Time Associated Diagnosis Comments USE ECHOCARDIOGRAM Routine 01/12/2021 1:57 PM CDT Coronary artery disease involving point [place] ira coronary artery of point [place] heart, unspecified whether angina present Chest pain, unspecified type Tachycardia documented in this encounter Results * USE ECHOCARDIOGRAM (01/12/2021 1:57 PM CDT) Anatomical Region Laterality Modality Cardiac Ultrasound us SABINO Umana APRNC ECHO Final Result documented in this encounter Visit Diagnoses Diagnosis Coronary artery disease involving point lay ira coronary artery of point [place] heart, unspecified whether angina present Chest pain, unspecified type Tachycardia Tachycardia, unspecified documented in this encounter Care Teams House Painter Helper Relationship Specialty Start Date End Date Vernon Mercedes MD [address] [place] [address] PCP - General FAMILY PRACTICE 10/27/15 12/02/21 Evaristo Allan MD [facility] [place] [address] Beaver Grill Associate CARDIOVASCULAR DISEASE 08/19/16 Raul Santana MD [facility] [place] [address] CLINICAL CARDIAC ELECTROPHYSIOLOGY 06/16/17 Danny Blackwell MD 5 [place] [address] ORTHOPAEDIC SURGERY 05/01/19 Gayle Arce, GENERAL ASSEMBLER INSTALLER, SENIOR MANUFACTURING TEST ENGINEER-C [address] [facility] [address] [place] [address] NURSE PRACTITIONER 03/03/20 documented as of this encounter
--- OUTSIDE RECORDS SUMMARY | 2024-04-23 04:25 | XMS_ITS | Encounter Summary ---
Author Organization [facility] Address [address] [place] [address]. [place], [place] [address] [place] [address] Care Team Providers Care Family Practice Nurse Practitioner Name Role Phone Ton Mercedes MD Primary Care Provider [phone] Elza Allan MD Unavailable Unavailabl Raul Duran MD Unavailable Unavailabl Danny Lopes MD Unavailable [phone] Gayle Arce APRN, STATISTICIAN MATHEMATICAL-C Unavailable Encounter Details Date Type Department Care Team (Late st Contact Info) Description 05/19/2021 Orders Only [facility] [facility] [place] [address] [place] [address] [place] [address] Social History Tobacco Use Types [...] 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 No / Unsure 05/23/2021 9:00 AM CERTIFIED FAMILY MEDIATOR documented as of this encounter Functional Status [...] Contact Info) Description 04/25/2024 11:00 AM CERTIFIED FAMILY MEDIATOR Appointment [facility] [address] [place] [address] Ti Bonilla MD [address] [place] [phone] 05/23/2024 3:30 PM CERTIFIED FAMILY MEDIATOR Office Visit [facility] [address] [place] [phone] Jyoti Escobar MD [address] [place] [address] documented as of this encounter Results * BLADDER CANCER, FISH (05/19/2021 12:00 PM CERTIFIED FAMILY MEDIATOR) SPECIMEN SOURCE URINE 2 1:11 PM CERTIFIED FAMILY MEDIATOR [facility] CLINICAL INDICATION UNKNOWN 05/19/2021 1:11 PM CERTIFIED FAMILY MEDIATOR [facility] PRIOR THERAPY/TRANSPLAN T UNKNOWN 05/19/2021 1:11 PM CERTIFIED FAMILY MEDIATOR [facility] PHYSICIAN PHONE UNKNOWN 2 1:11 PM CERTIFIED FAMILY MEDIATOR [facility] CLIENT PHONE UNKNOWN 05/19/2021 1:11 PM [facility] FISH BLADDER CANCER VOIDED URI REPORT 05/26/2021 10:39 AM CERTIFIED FAMILY MEDIATOR [facility] KRYSTYNA BARROW Comment: Order ID: ? [id number] Specimen Type: ?Urine Clinical Indication: ?Not provided RESULT: NEGATIVE RESULT FOR THE UROVYSION FISH ASSAY INTERPRETATION: A normal hybridization pattern was observed for chromosomes 3, 7, 9, and 17. This result is not indicative of bladder cancer according to the UroVysion Directional Insert (Carrier Mobile/Message Missile). Although the UroVysion test was designed to [...] as a POSITIVE result. Lucila Norman, Ph.D., [facility], Progressive Assembler And Fitter, Cytogenetics and Genomics, Electronic Signature: ? 05/26/2021 10:53 AM Test Performed by Pino Thomason, [facility], [address] [place], [place] Crow Aldana M.D., Ph.D., Director of Laboratories , [facility] [id number] URINE SPECIMEN / Unknown 05/19/2021 12:00 PM CERTIFIED FAMILY MEDIATOR Ana Moreno III, MD PATHOLOGY/CYTOLOGY ORDER LONG Final Result Performing Organization Address City/Oss Health/ZIP Co de Phone Number [facility] [address] [place], [place] , [place] [phone] [facility] [address] [place] [address], [place] [phone] * CULTURE URINE (05/19/2021 12:00 PM CERTIFIED FAMILY MEDIATOR) SPEC DESCRIPTION URINE CLEAN CATCH 05/19/2021 1:08 PM CERTIFIED FAMILY MEDIATOR [facility] SPECIAL REQUESTS NO SPECIAL REQUEST 05/19/2021 1:08 PM CERTIFIED FAMILY MEDIATOR [facility] CULTURE RESULT FEW CONTAMINANTS 06/2021 1:16 PM CERTIFIED FAMILY MEDIATOR [facility] URINE SPECIMEN OBTAINED BY CLEAN CATCH PROCEDURE / Unknown 05/19/2021 12:00 PM CERTIFIED FAMILY MEDIATOR 05/19/2021 1:10 PM CERTIFIED FAMILY MEDIATOR Ana Moreno III, MD MICROBIOLOGY - GENERAL O RDERABLES Final Result [facility] [address] [place] [address], [place] [phone] [facility] [address] [place] [address], [place] [phone] * (ABNORMAL) URINALYSIS (05/19/2021 12:00 PM CERTIFIED FAMILY MEDIATOR) COLOR (U) YELLOW 05/19/2021 1:24 PM CERTIFIED FAMILY MEDIATOR [facility] TRANSPARENCY CLEAR 05/19/2021 1:24 PM CERTIFIED FAMILY MEDIATOR [facility] SPECIFIC GRAVITY (U) 1.010 1.000 - 1.025 05/19/2021 1:24 PM CERTIFIED FAMILY MEDIATOR [facility] U PH 5.5 5.0 - 8.0 05/19/2021 1:24 PM CERTIFIED FAMILY MEDIATOR [facility] LEUKOCYTES (U) NEGATIVE NEGATIVE 05/19/2021 1:24 PM CERTIFIED FAMILY MEDIATOR [facility] NITRITES NEGATIVE NEGATIVE 05/19/2021 1:24 PM CERTIFIED FAMILY MEDIATOR [facility] PROTEIN (U) NEGATIVE NEGATIVE 05/19/2021 1:24 PM CERTIFIED FAMILY MEDIATOR [facility] URINE GLUCOSE 3+(A) NEGATIVE 05/19/2021 1:24 PM CERTIFIED FAMILY MEDIATOR [facility] KETONES MG/DL (U) NEGATIVE NEGATIVE 05/19/2021 1:24 PM CERTIFIED FAMILY MEDIATOR [facility] UROBILINOGEN 0.2 <1.0 EU/DL 05/19/2021 1:24 PM CERTIFIED FAMILY MEDIATOR [facility] BILIRUBIN (U) NEGATIVE NEGATIVE 05/19/2021 1:24 PM [facility] BLOOD (U) NEGATIVE NEGATIVE 05/19/2021 1:24 PM CERTIFIED FAMILY MEDIATOR [facility] WBC/HPF 0-5 0 - 5 /HPF 05/19/2021 1:24 PM CERTIFIED FAMILY MEDIATOR [facility] RBC/HPF 0-5 0 - 5 /HPF 05/19/2021 1:24 PM CERTIFIED FAMILY MEDIATOR [facility] EPI/HPF OCCASIONAL /LPF 05/19/2021 1:24 PM CERTIFIED FAMILY MEDIATOR [facility] BACTERIA (U) TRACE /HPF 05/19/2021 1:24 PM [facility] URINE SPECIMEN OBTAINED BY CLEAN CATCH PROCEDURE / Unknown 05/19/2021 12:00 PM CERTIFIED FAMILY MEDIATOR us Ana Moreno III, MD URINE ORDERABLES Final R esult [facility] [address] [place], [place] [address] [place] [address], * CYTOLOGY GENERIC (05/19/2021 12:00 AM CERTIFIED FAMILY MEDIATOR) CYTOLOGY OTHER [facility] ? Department of Laboratory Medicine ?[address] [facility] ?[place] [address] ? , extension [phone] ? Pathology Report ? Non-gynecologic Cytology Report Name: ELZA MCKEON ?Specimen #: [id number] Age: 9 1960 (Age: 61) ?Location: [facility] Sex: M ?Procedure Date: 05/19/2021 Hospital #: [id number] ?Date Received: 05/21/2021 Date Reported: 05/25/2021 Provider: ANA MORENO III, MD ?TON MERCEDES MD Source: URINE, VOIDED Clinical History: Hematuria Gross Description: SPECIMEN RECEIVED: ? 40 cc's of light yellow fluid ? SLIDES PREPARED: ?1 ThinPrep ?STAINS: ? Papanicolaou This case was interpreted and signed out at [facility], [address] [facility], [place], [place], [facility]. FINAL DIAGNOSIS: URINE, VOIDED: ? - ADEQUATE FOR EVALUATION. ? - NEGATIVE FOR HIGH-GRADE UROTHELIAL CARCINOMA. Electronically Signed Out ? DAVID ZAMORA MD [facility] 05/19/2021 05/21/2021 12: 43 PM CERTIFIED FAMILY MEDIATOR Comment:URINE, VOIDED us Ana Moreno III, MD PATHOLOGY/CYTOLOGY ORDER LONG Final Result Performing Organization Address City/State/[facility] [[email or web address]] Co de Phone Number [facility] [address] [place] [address], [phone] documented in this encounter Visit Diagnoses Diagnosis Microscopic hematuria- Primary documented in this encounter Additional Health Concerns Infection Onset Date Last Indicated Resolved Time COVID-19 Rule Out 05/23/2021 05/23/2021 05/25/2021 3:02 PM CERTIFIED FAMILY MEDIATOR documented as of this encounter Care Teams Family Practice Nurse Practitioner Relationship Specialty Start Date End [place] [address] PCP - General FAMILY PRACTICE 10/27/15 12/02/21 [place] [address] [place] Artist Representative CARDIOVASCULAR DISEASE 08/19/16 Raul Santana MD [facility] [place] [address] CLINICAL CARDIAC ELECTROPHYSIOLOGY 06/16/17 Danny Blackwell MD [address] [place] [address] ORTHOPAEDIC SURGERY 05/01/19 Gayle Arce, MANAGER GAS, STATISTICIAN MATHEMATICAL-C [address] [facility] [address] [place] [address] NURSE PRACTITIONER 03/03/20 documented as of this encounter
--- OUTSIDE RECORDS SUMMARY | 2024-04-23 04:25 | XMS_ITS | Encounter Summary ---
Author Organization [facility] Address [address] [place] [address]. [place], [place] [address] [place] [address] Care Team Providers Care Pet Sitting Name Role Phone Vernon Mercedes MD Primary Care Provider [phone] Evaristo Allan MD Unavailable Unavailabl Raul Duran MD Unavailable Unavailabl Danny Lopes MD Unavailable [phone] Gayle Arce APRN, DRY GOODS CLERK-C Unavailable Encounter Details Date Type Department Care Team (Latest Contact Info) Description 05/25/2021 4:02 PM SENIOR PRODUCER - 05/25/2021 11:59 PM SENIOR PRODUCER Hospital Encounter [facility] [address] [facility] [place] [address] [place] [address] [place] [address] Discharge Disposition: Home or Self Care [...] 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 No / Unsure 05/25/2021 7:02 AM SENIOR PRODUCER documented as of this encounter Functional Status [...] Contact Info) Description 04/25/2024 11:00 AM SENIOR PRODUCER [address]ointment [facility] [address] [place] [address] Ti Bonilla MD [address] [place] [phone] 05/23/2024 3:30 PM SENIOR PRODUCER Office Visit [facility] [address] [place] [address] Jyoti Escobar MD [address] [place], [place] [address] documented as of this encounter Procedures Procedure Name Priority Date/Time Associated Diagnosis Comments CORONAVIRUS (COVID 19) Routine 05/25/2021 4:06 PM SENIOR PRODUCER Pre-operative laboratory examination documented in this encounter Results * CORONAVIRUS (COVID 19) PCR (05/25/2021 4:06 PM SENIOR PRODUCER) SPEC DESCRIPTION NASAL 05/25/19 4:06 PM SENIOR PRODUCER [facility] CORONAVIRUS SARS COV 2 PCR (RESP) NEGATIVE NEGATIVE 05/26/2021 3:50 AM SENIOR PRODUCER [facility] Comment: THE SARS-CoV-2 TEST HAS BEEN AUTHORIZED BY THE FDA UNDER AN EUA FOR USE BY AUTHORIZED LABORATORIES. PERFORMED BY NUCLEIC ACID AMPLIFICATION PCR FIRST TEST NO 05/25/2021 4:06 PM SENIOR PRODUCER [facility] EMPLOYED IN HEALTHCARE YES 05/25/2021 4:06 PM SENIOR PRODUCER [facility] SYMPTOMATIC DEFINED BY CDC NO 05/25/2021 4:06 PM SENIOR PRODUCER [facility] HOSPITALIZATION STATUS NO 05/25/2021 4:06 PM SENIOR PRODUCER [facility] PATIENT IN ICU NO 05/25/2021 4:06 PM SENIOR PRODUCER [facility] RESIDENT [facility] YES 05/25/2021 4:06 PM SENIOR PRODUCER [facility] NASAL STRUCTURE / Unknown 05/25/2021 4:06 PM SENIOR PRODUCER us Ana Moreno III, MD MICROBIOLOGY - GENERAL O RDERABLES Final Result [facility] [address] [place] [address], [place] [phone] [facility] [address] [place] [address], [place] [phone] documented in this encounter Visit Diagnoses Diagnosis Pre-operative laboratory examination Pre-procedural laboratory examination documented in this encounter Additional Health Concerns Infection Onset Date Last Indicated Resolved Time COVID-19 Rule Out 05/25/2021 05/25/2021 05/26/2021 3:50 AM SENIOR PRODUCER documented as of this encounter Care Teams Pet Sitting Relationship Specialty Start Date End Date Vernon Mercedes MD [address] [place] [phone] PCP - General FAMILY PRACTICE 10/27/15 12/02/21 Evaristo Allan MD [address] [place] [address] Leon Accident Investigator CARDIOVASCULAR DISEASE 08/19/16 Raul Santana MD [address] [place] [address] CLINICAL CARDIAC ELECTROPHYSIOLOGY 06/16/17 Danny Blackwell MD [address] [place] [address] ORTHOPAEDIC SURGERY 05/01/19 Gayle Arce, AGRICULTURAL EQUIPMENT OPERATOR, DRY GOODS CLERK-C [address] [facility] [address] [place] [address] NURSE PRACTITIONER 03/03/20 documented as of this encounter
--- OUTSIDE RECORDS SUMMARY | 2024-04-23 04:25 | XMS_ITS | Encounter Summary ---
Author Organization [facility] Address [address] [place] [address]. [place] [address] [place] [address] Care Team Providers Care Rehabilitation Coordinator Name Role Phone Vernon Mercedes MD Primary Care Provider [phone] Evaristo Allan MD Unavailable Unavailabl Raul Duran MD Unavailable Unavailabl Danny Lopes MD Unavailable [phone] Gayle Arce APRN, ENGINEERING ASSISTANT-C Unavailable [phone] Reason for Visit * Reason Onset Date Comments Appointment Request 12/16/2020 Encounter Details Date Type Department Care Team (Late st Contact Info) Description 12/16/2020 Telephone [facility] [address] [place] [address] Evaristo Allan MD Appointment Request [...] 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 Wants schedule with Mando Arce REFERRAL/PCP: august INS: [employer] APPT PROV/DATE/TIME: 12/23 @ 9:30 PHI TESTING NEEDED/SCHEDULED: no STAFF MSG SENT: no COVID+TEST/EXPOSURE IN LAST 14 DAYS: no RECORDS NEEDED: no MYCHART OFFERED: pending LETTER SENT: yes CARE TEAM: verified * Vee Lazcano - 12/16/2020 9:17 AM CDT [facility] called to schedule PT for f/u appt. Caller verbalized understanding and had no further questions. REFERRAL/PCP: Vernon Mercedes INS: [employer] APPT PROV/DATE/TIME: Dr. Allan 03/10 @1pm TESTING NEEDED/SCHEDULED: no STAFF MSG SENT: no COVID+TEST/EXPOSURE IN LAST 14 DAYS: no RECORDS NEEDED: no MYCHART OFFERED: declined LETTER SENT: yes CARE TEAM: yes documented in this encounter Plan of Treatment Upcoming Encounters Date Type Department Care Team (Late st Contact Info) Description 04/25/2024 11:00 AM SHAREMILKER Appointment [facility] [address] [place] [address] Ti Bonilla MD [address] [place] [phone] 05/23/2024 3:30 PM SHAREMILKER Office Visit [facility] [address] [place] [address] Jyoti Escobar MD [address] [place] [address] documented as of this encounter Visit Diagnoses Not on filedocumented in this encounter Care Teams Rehabilitation Coordinator Relationship Specialty Start Date End Date Vernon Mercedes MD [address] [place] [address] PCP - General FAMILY PRACTICE 10/27/15 12/02/21 Evaristo Allan MD [facility] [place] [address] [place] Business Analyst Manager CARDIOVASCULAR DISEASE 08/19/16 Raul Santana MD [facility] [place] [address] CLINICAL CARDIAC ELECTROPHYSIOLOGY 06/16/17 Danny Blackwell MD [address] [place] [address] ORTHOPAEDIC SURGERY 05/01/19 Gayle Arce, DIRECTOR GOVERNMENT, ENGINEERING ASSISTANT-C [address] [facility] [address] [place] [address] NURSE PRACTITIONER 03/03/20 documented as of this encounter
--- OUTSIDE RECORDS SUMMARY | 2024-04-23 04:25 | XMS_ITS | Encounter Summary ---
Author Organization [facility] Address [address] [place] [address]. [place], [place] [address] [place] [address] Care Team Providers Care Director Of Claims Name Role Phone Vernon Mercedes MD Primary Care Provider [phone] Evaristo Allan MD Unavailable Unavailabl Raul Duran MD Unavailable Unavailabl Danny Lopes MD Unavailable [phone] Gayle Arce APRN SENIOR BUSINESS ARCHITECT-C Unavailable Reason for Visit * Reason Comments Neck Pain * Physical Therapy (Routine) - Closed Specialty Diagnoses / Procedures Referred By Charito ledbetter Referred To Contact PHYSICAL THERAPY / [facility] Physical Therapy Diagnoses Neck Pain Procedures Vernon Jean MD [address] [place] [address] Phone: tel: fax: Kellee Rodríguez PT Referral ID Status Reason Start Date Expiration Date Visits Re quested Visits Authorized [id number] Closed 04/07/2021 04/08/2022 20 20 Encounter Details Date Type Department Care Team (Late st Contact Info) Description 04/07/2021 7:55 AM MUSHROOM CULTIVATOR - 04/07/2021 11:59 PM [facility] Hospital Encounter [facility] [address] [place] [address] Vernon Mercedes MD [address] [place] [address] Kellee Rodríguez, PT Neck Pain Discharge Disposition: Home or Self Care (Routine [...] 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 No / Unsure 04/07/2021 7:54 AM MUSHROOM CULTIVATOR documented as of this encounter Functional Status [...] as of this encounter Progress Notes * Kellee Rodríguez, PT - 04/07/2021 8:00 AM CST [facility] PHYSICAL THERAPY OUTPATIENT INITIAL EVALUATION Time In: 804 Time Out: 854 Total Time: 50 Date: 04/07/21 Name: Evaristo Zelaya : 1960 Past Medical History: Diagnosis Date ??? Abnormal [...] CATHETERIZATION 01/04/2018 occluded prox RCA w/well developed [id number] collaterals lvef 55-60% ??? CARDIAC CATHETERIZATION 11/13/2018 ??? FRACTURE SURGERY ??? 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 HERNIA REPAIR ??? JOINT REPLACEMENT ??? KNEE ARTHROPLASTY Bilateral ??? LITHOTRIPSY ??? XA ABLATION 05/19/2016 ??? 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 He gets bad pain at the neck and then he's unable to lift his head. Then it causes a really bad headache. 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 He denies numbness and tingling. Pt is R hand dominant. Location of Pain: neck pain Current Pain: 10 Highest Pain: 10 Lowest Pain: 04/27 Restriction/Precaution: NA Patient Goals: Be able to perform job duties without pain Objective: -OBSERVATION: In sitting pt presents with significant rounded shoulder posturing and forward head positioning. -PALPATION: Tenderness to palpation of the occiput. -Cervical ROM: Pain with performance in every plane Flex: 45?? Ext: 45?? Sidebend: R: 38??, L: 28?? Rotation: R: 70??, L: 55?? -STRENGTH: Shoulder: Flex: R: 4/5, L: 4/5 Abduction: R: 4/5, L: 4/5 ER: R: 4-/5, L: 4-/5 IR: R: 5/5, L: 5/5 Elbow Flexion; R: 5/5, L: 5/5 Elbow Ext; R: 5/5, L: 5/5 Wrist flex: R: 4/5, L: 4/5 Wrist Ext: R: 4/5, L: 4/5 -FLEXIBILITY: Tightness of pec as noted by the rounded shoulder posturing -SPECIAL TEST: Cervical compression and distraction test (-) -TREATMENT: MHP with IF esitm to cervical spine for pain control x15 minutes. Pt then performed thefollowing exercises: B ER x15, scap pinches x15, upper trap stretch, and levator stretch. Education Performed: importance of good posture Assessment Assessment/Impressions: Evaristo Zelaya is a 61-year-old male who presents with a primary complaint of neck pain. Patient is demonstrating deficits in ROM and Posture, leading to over activation of the upper trap. Skilled therapy is appropriate at this time to address these impairments and to move the patient towards their goal of being able to sweep and mop without pain. Rehab Potential: GOOD Personal Factors/Co-Morbidities Affecting Care: 3-4+ Examination of Body Systems: Low (1-2) Clinical Presentation of Patient: Stable Uncomplicated Eval Complexity: Low PLAN: PT Plan for next visit: postural exercises, modalities prn Treatment/Interventions: Therapeutic Exercise - 87101, Therapeutic Activity - 20299, Neuromuscular Re-education - 60129, Manual Therapy - 87119, Electrical Stimulation Unattended - 61006, Vasopneumatic Compression - 02410 and Mechanical Traction - 58401 Frequency: 3x/week Duration: 4 weeks GOALS: 1. I with HEP in 1 week 2. Cervical ROM B rotation 65 or greater in 4 weeks to improve ability to look out the windows whendriving 3. Strength of scapular musculature 4-/5 or above in 4 weeks to improve ability to sweep and mop without over activation of the upper trap 4. Report 50% decrease in his pain in 4 weeks to improve ability to perform job duties. THE PROVIDER, I AM IN AGREEMENT WITH THE STATED THERAPY PLAN OF CARE. Provider Signature: Date: In signing this document, provider certifies that prescribed rehabilitation is a medical necessity. Date: 04/07/21 Patient Name: Evaristo Zelaya Patient : [address] [facility] [address] [facility] [address] Dept: [phone] Dept ROOM CULTIVATOR documented in this encounter Plan of Treatment Upcoming Encounters Date Type Department Care Team (Late st Contact Info) Description 04/25/2024 11:00 AM MUSHROOM CULTIVATOR Appointment [facility] [address] [place] [address] Ti Bonilla MD [address] [place] [phone] 05/23/2024 3:30 PM MUSHROOM CULTIVATOR Office Visit [facility] [address] [place] [phone] Jyoti Escobar MD [address] [place] [address] 145291 documented as of this encounter Visit Diagnoses Diagnosis Neck pain- Primary Cervicalgia documented in this encounter Care Teams Director Of Claims Relationship Specialty Start Date End Date Vernon Mercedes MD [address] [place] [phone] PCP - General FAMILY PRACTICE 10/27/15 12/02/21 Evaristo Allan MD [address] [place] [address] [place] Annual Giving Manager CARDIOVASCULAR DISEASE 08/19/16 Raul Santana MD [address] [place] [address] CLINICAL CARDIAC ELECTROPHYSIOLOGY 06/16/17 Danny Blackwell MD [address] [place] [address] ORTHOPAEDIC SURGERY 05/01/19 Gayle Arce, CLAY STRUCTURE BUILDER AND SERVICER, SENIOR BUSINESS ARCHITECT-C [address] [facility] [address] [place] [phone] NURSE PRACTITIONER 03/03/20 documented as of this encounter
--- OUTSIDE RECORDS SUMMARY | 2024-04-23 04:25 | XMS_ITS | Encounter Summary ---
Author Organization [facility] Address [address] [place] [address]. [place] [address] [place] [address] Care Team Providers Care Pole Shaver Name Role Phone Vernon Mercedes MD Primary Care Provider [phone] Evaristo Allan MD Unavailable Unavailabl Raul Duran MD Unavailable Unavailabl Danny Lopes MD Unavailable [phone] Gayle Arce APRN, BREAKDOWN MILL OPERATOR-C Unavailable Encounter Details Date Type Department Care Team (Late st Contact Info) Description 07/24/2020 Transcribe Orders [facility] Pre Access Team [address] [place] [address] Vernon Mercedes MD [address] 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 file [...] st Contact Info) Description 04/25/2024 11:00 AM TIPPLE SUPERVISOR Appointment [facility] [address] [place] [address] Ti Bonilla MD [address] [place] [phone] 05/23/2024 3:30 PM TIPPLE SUPERVISOR Office Visit [facility] [address] [place] [phone] Jyoti Escobar MD [address] [place] [address] documented as of this encounter Visit Diagnoses Not on filedocumented in this encounter Care Teams Pole Shaver Relationship Specialty Start Date End Date Vernon Mercedes MD [address] [place] [phone] PCP - General FAMILY PRACTICE 10/27/15 12/02/21 Evaristo Allan MD [address] [place] [address] [place] Printed Circuit Board Panels Developer CARDIOVASCULAR DISEASE 08/19/16 Raul Santana MD [address] [place] [address] CLINICAL CARDIAC ELECTROPHYSIOLOGY 06/16/17 Danny Blackwell MD [address] [place] [address] ORTHOPAEDIC SURGERY 05/01/19 Gayle Arce, GANG MOWER OPERATOR, BREAKDOWN MILL OPERATOR-C [address] [facility] [address] [place] [address] NURSE PRACTITIONER 03/03/20 documented as of this encounter
--- OUTSIDE RECORDS SUMMARY | 2024-04-23 04:25 | XMS_ITS | Encounter Summary ---
Author Organization [facility] Address [address] [place] [address]. 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 No / Unsure 04/07/2021 7:54 AM CYLINDER TESTER documented as of this encounter Functional Status [...] st Contact Info) Description 04/25/2024 11:00 AM CYLINDER TESTER Appointment [facility] [address] [place] [address] Ti Bonilla MD [address] [place] [phone] 05/23/2024 3:30 PM CYLINDER TESTER [facility] [address] [place] [address] Jyoti Escobar MD [address] [place] [address] documented as of this encounter Visit Diagnoses Not on filedocumented in this encounter Care Teams Hog Scraper Relationship Specialty Start Date End Date Vernon Mercedes MD [address] [place] [phone] PCP - General FAMILY PRACTICE 10/27/15 12/02/21 Evaristo Allan MD [address] [place] [address] [place] Organisation And Methods Analyst CARDIOVASCULAR DISEASE 08/19/16 Raul Santana MD [address] [place] [address] CLINICAL CARDIAC ELECTROPHYSIOLOGY 06/16/17 Danny Blackwell MD [address] [place] [address] ORTHOPAEDIC SURGERY 05/01/19 aGyle Arce, DENTAL PROFESSIONAL, SHALLOT CLEANER-C [address] [facility] [address] [place] [phone] NURSE PRACTITIONER 03/03/20 documented as of this encounter
--- OUTSIDE RECORDS SUMMARY | 2024-04-23 04:25 | XMS_ITS | Encounter Summary ---
Author Organization [facility] Address [address] [place] [address]. 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 No / Unsure 06/02/2021 10:06 AM MARINE STRUCTURAL WELDER documented as of this encounter Functional Status [...] st Contact Info) Description 04/25/2024 11:00 AM MARINE STRUCTURAL WELDER Appointment [facility] [address] [place] [address] Ti Bonilla MD [address] [place] [phone] 05/23/2024 3:30 PM MARINE STRUCTURAL WELDER Office Visit [facility] [address] [place] [address] Jyoti Escobar MD [address] [place] [address] documented as of this encounter Visit Diagnoses Not on filedocumented in this encounter Care Teams Recreational Therapy Aide Relationship Specialty Start Date End Date Vernon Mercedes MD [address] [place] [address] PCP - General FAMILY PRACTICE 10/27/15 12/02/21 Evaristo Allan MD [address] [place] [address] [place] Shadowgraph Operator CARDIOVASCULAR DISEASE 08/19/16 Raul Santana MD [address] [place] [address] CLINICAL CARDIAC ELECTROPHYSIOLOGY 06/16/17 Danny Blackwell MD [address] [place] [address] ORTHOPAEDIC SURGERY 05/01/19 Gayle Arce, INSULATION WORKER, FLOOR NURSE-C [address] [facility] [address] [place] [phone] NURSE PRACTITIONER 03/03/20 documented as of this encounter
--- OUTSIDE RECORDS SUMMARY | 2024-04-23 04:25 | XMS_ITS | Encounter Summary ---
Author Organization [facility] Address [address] [place] [address]. [place], [place] [address] [place] [address] Care Team Providers Care Filling Station Laborer Name Role Phone Vernon Mercedes MD Primary Care Provider [phone] Evaristo Allan MD Unavailable Unavailabl Raul Duran MD Unavailable Unavailabl Danny Lopes MD Unavailable [phone] Gayle Arce APRN, PHOTONICS ENGINEER-C Unavailable [phone] Encounter Details Date Type Department Care Team (Late st Contact Info) Description 05/25/2021 Orders Only [facility] [place] [address] [place] [address] [place] [address] Social History Tobacco Use Types [...] 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 No / Unsure 05/26/2021 9:27 AM TOP LIFT COMPRESSOR documented as of this encounter Functional Status [...] st Contact Info) Description 04/25/2024 11:00 AM TOP LIFT COMPRESSOR Appointment [facility] [address] [place] [address] Ti Bonilla MD [address] [place] [phone] 05/23/2024 3:30 PM TOP LIFT COMPRESSOR Office Visit [facility] [address] [place] [phone] Jyoti Escobar MD [address] [place] [phone] documented as of this encounter Results * CORONAVIRUS (COVID 19) PCR (05/25/2021 4:06 PM TOP LIFT COMPRESSOR) SPEC DESCRIPTION NASAL 05/25/19 4:06 PM TOP LIFT COMPRESSOR [facility] CORONAVIRUS SARS COV 2 PCR (RESP) NEGATIVE NEGATIVE 05/26/2021 3:50 AM TOP LIFT COMPRESSOR [facility] Comment: THE SARS-CoV-2 TEST HAS BEEN AUTHORIZED BY THE FDA UNDER AN EUA FOR USE BY AUTHORIZED LABORATORIES. PERFORMED BY NUCLEIC ACID AMPLIFICATION PCR FIRST TEST NO 05/25/2021 4:06 PM TOP LIFT COMPRESSOR [facility] EMPLOYED IN HEALTHCARE YES 05/25/2021 4:06 PM TOP LIFT COMPRESSOR [facility] SYMPTOMATIC DEFINED BY CDC NO 05/25/2021 4:06 PM TOP LIFT COMPRESSOR [facility] HOSPITALIZATION STATUS NO 05/25/2021 4:06 PM TOP LIFT COMPRESSOR [facility] PATIENT IN ICU NO 05/25/2021 4:06 PM TOP LIFT COMPRESSOR [facility] RESIDENT OF [facility] YES 05/25/2021 4:06 PM TOP LIFT COMPRESSOR [facility] NASAL STRUCTURE / Unknown 05/25/2021 4:06 PM TOP LIFT COMPRESSOR us Ana Moreno III, MD MICROBIOLOGY - GENERAL O RDERABLES Final Result [facility] [address] [place] [address], [facility] [address] [place] [address], documented in this encounter Visit Diagnoses Diagnosis Pre-operative laboratory examination- Primary Pre-procedural laboratory examination documented in this encounter Additional Health Concerns Infection Onset Date Last Indicated Resolved Time COVID-19 Rule Out 05/23/2021 05/23/2021 05/25/2021 3:02 PM TOP LIFT COMPRESSOR COVID-19 Rule Out 05/25/2021 05/25/2021 05/26/2021 3:50 AM TOP LIFT COMPRESSOR documented as of this encounter Care Teams Filling Station Laborer Relationship Specialty Start Date End Date Vernon Mercedes MD [address] [place] [phone] PCP - General FAMILY PRACTICE 10/27/15 12/02/21 Evaristo Allan MD [address] [facility] [place] [address] [place] Regulatory Affairs Coordinator CARDIOVASCULAR DISEASE 08/19/16 Raul Santana MD [address] [place] [place] [address] CLINICAL CARDIAC ELECTROPHYSIOLOGY 06/16/17 Danny Blackwell MD [address] [place] [address] ORTHOPAEDIC SURGERY 05/01/19 Gayle Arce, WATER RESOURCE ENGINEERING SPECIALIST, PHOTONICS ENGINEER-C [address] [facility] [address] [place] [address] NURSE PRACTITIONER 03/03/20 documented as of this encounter
--- OUTSIDE RECORDS SUMMARY | 2024-04-23 04:25 | XMS_ITS | Encounter Summary ---
Author Organization [facility] Address [address] [place] [address]. 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 No / Unsure 04/16/2021 12:02 PM GRAPHIC DESIGN INTERN documented as of this encounter Functional Status [...] st Contact Info) Description 04/25/2024 11:00 AM GRAPHIC DESIGN INTERN Appointment [facility] [address] [place] [address] [place] [address] Ti Bonilla MD [address] [place] [phone] 05/23/2024 3:30 PM GRAPHIC DESIGN INTERN Office Visit [facility] [address] [place] [address] Jyoti Escobar MD [address] [place] [address] documented as of this encounter Visit Diagnoses Not on filedocumented in this encounter Additional Health Concerns Infection Onset Date Last Indicated Resolved Time COVID-19 Rule Out 04/16/2021 04/16/2021 04/16/2021 12:50 PM GRAPHIC DESIGN INTERN COVID-19 Confirmed 04/16/2021 04/16/2021 12:32 AM GRAPHIC DESIGN INTERN documented as of this encounter Care Teams Glass Ribbon Machine Operator Assistant Relationship Specialty Start Date End Date Vernon Mercedes MD [address] [place] [phone] PCP - General FAMILY PRACTICE 10/27/15 12/02/21 Evaristo Allan MD [address] [place] [address] [place] Employee Service Officer CARDIOVASCULAR DISEASE 08/19/16 Raul Santana MD [address] [place] [address] CLINICAL CARDIAC ELECTROPHYSIOLOGY 06/16/17 Danny Blackwell MD [address] [place] [address] ORTHOPAEDIC SURGERY 05/01/19 Gayle Arce, BURGLAR ALARM SUPERINTENDENT, GASKET SUPERVISOR-C [address] [facility] [address] [place] [address] NURSE PRACTITIONER 03/03/20 documented as of this encounter
--- OUTSIDE RECORDS SUMMARY | 2024-04-23 04:25 | XMS_ITS | Encounter Summary ---
Author Organization [facility] Address [address] [place] [address]. [place], [place] [address] [place] [address] Care Team Providers Care Retail Field Representative Name Role Phone Vernon Mercedes MD Primary Care Provider [phone] Evaristo Allan MD Unavailable Unavailabl e Raul Santana MD Unavailable Unavailabl e Danny Blackwell MD Unavailable [phone] Gayle Arce APRN, CRITICAL CARE PHYSICIAN-C Unavailable [phone] Reason for Referral * Imaging (Urgent) - Closed Specialty Diagnoses / Procedures Referred By Contac t Referred To Contact RADIOLOGY Diagnoses Microscopic hematuria Procedures CT ABD+PEL WWO CON Ana Moreno III, MD Phone: tel: fax: Referral ID Status Reason Start Date Expiration Date Visits Re quested Visits Authorized [id number] Closed 05/19/2021 06/16/2022 1 1 RESS PROOFER Reason for Visit * Imaging (Urgent) - Closed Specialty Diagnoses / Procedures Referred By Contac t Referred To Contact RADIOLOGY Diagnoses Microscopic hematuria Procedures CT ABD+PEL WWO CON Ana Moreno III, MD Phone: tel: fax: Referral ID Status Reason Start Date Expiration Date Visits Re quested Visits Authorized [id number] Closed 05/19/2021 06/16/2022 1 1 Encounter Details Date Type Department Care Team (Latest Contact Info) Description 05/25/2021 7:06 AM PREPRESS PROOFER - 05/25/2021 4:01 PM PREPRESS PROOFER Hospital Encounter [place] [facility] [address] [place] [address] [place] [address] [place] [address] Discharge Disposition: Home or Self Care (Routine [...] 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 No / Unsure 05/25/2021 7:02 AM PREPRESS PROOFER documented as of this encounter Functional Status [...] st Contact Info) Description 04/25/2024 11:00 AM PREPRESS PROOFER [facility]oint[address] [facility] [address] [place] [address] [place] [address] Ti Bonilla MD [address] [place] [phone] 05/23/2024 3:30 PM PREPRESS PROOFER Office Visit [facility] [address] [place] [address] [place] [address] Jyoti Escobar MD [address] [place] [address] [phone] documented as of this encounter Procedures Procedure Name Priority Date/Time Associated Diagnosis Comments CT ABD+PEL WWO CON DAVY 05/25/2021 8: 06 AM PREPRESS PROOFER Microscopic hematuria CREATININE STAT 05/25/2021 7:35 AM PREPRESS PROOFER documented in this encounter Results * CT ABD+PEL WWO CON (05/25/2021 8:06 AM PREPRESS PROOFER) Anatomical Region Laterality Modality Abdomen Computed Tomogra phy 05/25/2021 8:56 AM PREPRESS PROOFER Impressions 05/25/2021 9:25 AM PREPRESS PROOFER IMPRESSION: 1. ?? No clear explanation for the patient's hematuria. ??No suspicious renal or ureteral or bladder lesion. ??Consider follow-up urology consultation and cystoscopy if clinically indicated. 2. ??2 nonobstructing stones on the left. ??Tiny angiomyolipoma right kidney. 3. ??Atherosclerosis and coronary calcifications. 4. ??No free fluid or free air. ??Appendix normal. Referred By: ANA [facility] Interpreted By: Nam Streeter MD, 05/25/2021 8:56 AM Narrative 05/25/2021 9:25 AM PREPRESS PROOFER EXAMINATION: CT ABDOMEN PELVIS WITH AND WITHOUT CONTRAST EXAM DATE: 05/25/2021 8:06 AM REASON FOR EXAM: ??Microscopic hematuria ?? Microscopic hematuria COMPARISON: 07/11/2019 TECHNIQUE: Axial images through the abdomen and pelvis before and after injection of 92 mL Isovue-370. ??Post contrast images obtained in portal venous and delayed phases. ??No enteric contrast. Dose lowering technique was used for this study which may include, but is not limited to, dose reduction techniques, automated exposure control, use of iterative ??reconstruction and ALARA (As low As Reasonably Achievable)/Image Gently techniques. FINDINGS: Noncontrast: No hemorrhage or hematoma. 2 nonobstructing calculi left kidney measuring 2 mm and 4 mm. ??No obstructing calculus or hydronephrosis. Postcontrast: Adrenals unremarkable. Kidneys: No suspicious renal lesion or hydronephrosis. ??Fatty lesion inferior pole right kidney measures 5 mm, compatible with incidental angiomyolipoma. Stomach and duodenum and spleen and pancreas and gallbladder unremarkable. Liver: No evidence of intrahepatic biliary dilatation or mass. Portal vein patent. No evidence of mesenteric lymphadenopathy. ??No small bowel dilatation. No retroperitoneal lymphadenopathy. Scattered atherosclerosis. Large bowel: No evidence of mass or dilatation. Appendix normal. Pelvis: Urinary bladder and rectum unremarkable. Limited visualization of the lower thorax demonstrates coronary calcifications. ??Mild right basilar atelectasis. Excretory imaging: Calyces unremarkable. ??No hydronephrosis. ??No suspicious filling defect in the urinary collecting system. Bones: Moderate bilateral hip and sacroiliac osteoarthritis. ??No evidence of fracture or malalignment. ??Moderate degenerative changes spine. Procedure Note Nam Streeter MD - 05/25/2021 EXAMINATION: CT ABDOMEN PELVIS WITH AND WITHOUT CONTRAST EXAM DATE: 05/25/2021 8:06 AM REASON FOR EXAM: Microscopic hematuria Microscopic hematuria COMPARISON: 07/11/2019 TECHNIQUE: Axial images through the abdomen and pelvis before and afterinjection of 92 mL Isovue-370. Post contrast images obtained in portalvenous and delayed phases. No enteric contrast. Dose lowering technique was used for this study which may include, but isnot limited to, dose reduction techniques, automated exposure control, use of iterativereconstruction and ALARA (As low As Reasonably Achievable)/Image Gently techniques. FINDINGS: Noncontrast: No hemorrhage or hematoma. 2 nonobstructing calculi left kidney measuring 2 mm and 4 mm. Noobstructing calculus or hydronephrosis. Postcontrast: Adrenals unremarkable. Kidneys: No suspicious renal lesion or hydronephrosis. Fatty lesioninferior pole right kidney measures 5 mm, compatible with incidentalangiomyolipoma. Stomach and duodenum and spleen and pancreas and gallbladderunremarkable. Liver: No evidence of intrahepatic biliary dilatation or mass. Portal vein patent. No evidence of mesenteric lymphadenopathy. No small bowel dilatation. No retroperitoneal lymphadenopathy. Scattered atherosclerosis. Large bowel: No evidence of mass or dilatation. Appendix normal. Pelvis: Urinary bladder and rectum unremarkable. Limited visualization of the lower thorax demonstrates coronarycalcifications. Mild right basilar atelectasis. Excretory imaging: Calyces unremarkable. No hydronephrosis. Nosuspicious filling defect in the urinary collecting system. Bones: Moderate bilateral hip and sacroiliac osteoarthritis. No evidenceof fracture or malalignment. Moderate degenerative changes spine. IMPRESSION: 1. No clear explanation for the patient's hematuria. No suspiciousrenal or ureteral or bladder lesion. Consider follow-up urologyconsultation and cystoscopy if clinically indicated. 2. 2 nonobstructing stones on the left. Tiny angiomyolipoma rightkidney. 3. Atherosclerosis and coronary calcifications. 4. No free fluid or free air. Appendix normal. Referred By: ANA MORENO III Interpreted By: Nam Streeter MD, 05/25/2021 8:56 AM us Ana Moreno III, MD CT Final Re sult * (ABNORMAL) CREATININE (05/25/2021 7:35 AM PREPRESS PROOFER) CREATININE S/P/B 0.99 0.70 - 1.30 MG/DL 05/25/2021 7:48 AM PREPRESS PROOFER [facility] EGFR NON-AFR. AMER. 81(L) >89 ML/MIN/1. 73 M2 05/25/2021 7:48 AM PREPRESS PROOFER [facility] EGFR AFR. AMER. >90 >89 ML/MIN/1. 73 M2 05/25/2021 7:48 AM PREPRESS PROOFER [facility] GFR NOTES GFR REFERENCE S: 05/25/2021 7:48 AM PREPRESS PROOFER [facility] Comment: THE ESTIMATED GFR [...] ml/min/1.73 m2 G5,KIDNEY FAILURE: <15 ml/min/1.73 m2 05/25/2021 7:35 AM PREPRESS PROOFER Ana Moreno III, MD LABORATORY Final Re sult [facility] [address] [place] [address], documented in this encounter Visit Diagnoses Diagnosis Microscopic hematuria documented in this encounter Administered Medications Inactive Administered Medications - up to 3 most recent administrations Medication Order MAR Action Action Date Dose Rate Site iopamidol (ISOVUE-370) 76 % injection 92 mL 92 mL, Intravenous, IMG once as needed, Contrast, 1 dose, Starting on Tue05/25/21 at 0806, Until Tue05/25/21 at 0757 Given 05/25/2021 7:57 AM PREPRESS PROOFER 92 mLs Right Arm documented in this encounter Additional Health Concerns Infection Onset Date Last Indicated Resolved Time COVID-19 Rule Out 05/23/2021 05/23/2021 05/25/2021 3:02 PM PREPRESS PROOFER documented as of this encounter Care Teams Retail Field Representative Relationship Specialty Start Date End Date Vernon Mercedes MD [address] [place] [phone] PCP - General FAMILY PRACTICE 10/27/15 12/02/21 Evaristo Allan MD [facility] [place] [address] [place] Steamfitter CARDIOVASCULAR DISEASE 08/19/16 Raul Santana MD [facility] [place] [address] CLINICAL CARDIAC ELECTROPHYSIOLOGY 06/16/17 Danny Blackwell MD [address] [place] [address] ORTHOPAEDIC SURGERY 05/01/19 Gayle Arce, [place] ADVANCED OPERATOR MAINTAINER, CRITICAL CARE PHYSICIAN-C [address] [facility] [address] [place] [phone] NURSE PRACTITIONER 03/03/20 documented as of this encounter
--- OUTSIDE RECORDS SUMMARY | 2024-04-23 04:25 | XMS_ITS | Encounter Summary ---
Author Organization [facility] Address [address] [place] [address]. [place] [address] [place] [address] Care Team Providers Care Outside Production Inspector Name Role Phone Vernon Mercedes MD Primary Care Provider [phone] Evaristo Allan MD Unavailable Unavailabl e Raul Santana MD Unavailable Unavailabl e Danny Blackwell MD Unavailable [phone] Gayle Arce APRN, VOCATIONAL CASE MANAGER-C Unavailable Reason for Referral * Procedure (Routine) - Closed Specialty Diagnoses / Procedures Referred By Contac t Referred To Contact Diagnoses Coronary artery disease involving klamath heart, unspecified vessel or lesion type, unspecified whether angina present Procedures Stress Test (Nuclear) [facility] [address] [place] [address] Phone: tel: Referral ID Status Reason Start Date Expiration Date Visits Re quested Visits Authorized [id number] Closed 01/13/2021 02/12/2022 1 1 Reason for Visit * Imaging (Routine) - Closed Specialty Diagnoses / Procedures Referred By Contac t Referred To Contact RADIOLOGY Diagnoses Coronary artery disease involving klamath coronary artery of klamath heart, unspecified whether angina present Chest pain, unspecified type Tachycardia Difficulty walking Procedures NM PHARM NUC STRESS TEST 1DAY NM PHARM NUC STRESS TEST 1DAY Gayle Arce APRN, VOCATIONAL CASE MANAGER-C [address] [facility] [facility] [address] [place] [address] Phone: tel: fax: Referral ID Status Reason Start Date Expiration Date Visits Re quested Visits Authorized [id number] Closed 12/23/2020 01/23/2022 1 1 Encounter Details Date Type Department Care Team (Latest Contact Info) Description 01/13/2021 7:55 AM CDT - 01/13/2021 11:59 PM CDT Hospital Encounter [facility] [address] [place] [address] Gayle Arce, PEDIATRIC CLINICAL NURSE SPECIALIST, VOCATIONAL CASE MANAGER-C [address] [facility] [facility] [address] [place] [address] [place] [address] [place] [address] Discharge Disposition: Home or Self Care (Routine [...] 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 4 documented as of this encounter Nursing Notes * Sarah Atkins RN - 01/13/2021 9:10 AM CDT Test completed. Patient tolerated medication well. Aminophylline not needed. No issues to report. documented in this encounter Plan of Treatment Upcoming Encounters Date Type Department Care Team (Late st Contact Info) Description 04/25/2024 11:00 AM BORE MILL OPERATOR Appointment [facility] [address] [place] [address] Ti Bonilla MD [address] [place] [phone] 05/23/2024 3:30 PM BORE MILL OPERATOR Office Visit [facility] [address] [place] [phone] Jyoti Escobar MD [address] [place] [address] [phone] documented as of this encounter Procedures Procedure Name Priority Date/Time Associated Diagnosis Comments CARDIOLOGY STRESS TEST ONLY, EXERCISE Routine 01/13/2021 10:33 AM CDT Coronary artery disease involving klamath heart, unspecified vessel or lesion type, unspecified whether angina present documented in this encounter Visit Diagnoses Diagnosis Coronary artery disease involving klamath heart, unspecified vessel or lesion type, unspecified whether angina present- Primary documented in this encounter Administered Medications Inactive Administered Medications - up to 3 most recent administrations Medication Order MAR Action Action Date Dose Rate Site regadenoson (LEXISCAN) injection 0.4 mg 0.4 mg, Intravenous, Once, 1 dose, On Tu01/13/21 at 0830, Administer over 10 seconds Given 01/13/2021 9:07 AM CDT 0.4 mg documented in this encounter Care Teams Outside Production Inspector Relationship Specialty Start Date End Date Vernon Mercedes MD [address] [place] [address] PCP - General FAMILY PRACTICE 10/27/15 12/02/21 Evaristo Allan MD [facility] [place] [address] [place] [employer] Pipe Press Operator CARDIOVASCULAR DISEASE 08/19/16 Raul Santana MD [facility] [place] [address] CLINICAL CARDIAC ELECTROPHYSIOLOGY 06/16/17 Danny Blackwell MD [address] [place] [address] ORTHOPAEDIC SURGERY 05/01/19 Gayle Arce APRN, VOCATIONAL CASE MANAGER-C [address] [facility] [address] [place] [address] NURSE PRACTITIONER 03/03/20 documented as of this encounter
--- OUTSIDE RECORDS SUMMARY | 2024-04-23 04:25 | XMS_ITS | Encounter Summary ---
Author Organization [facility] Address [address] [place] [address]. [place], [place] [phone] [place] [address] Care Team Providers Care Business Management Intern Name Role Phone Vernon Mercedes MD Primary Care Provider [phone] Evaristo Allan MD Unavailable UnavailRaul Suresh MD Unavailable Unavailabl Danny Lopes MD Unavailable [phone] Gayle Arce APRN [employer] SPANISH TEACHER-C Unavailable Encounter Details Date Type Department Care Team (Late st Contact Info) Description 06/02/2021 10:05 AM AUTOMATION SPECIALIST - 06/02/2021 11:59 PM [facility] Hospital Encounter [facility] [address] [place] [address] Vernon Mercedes MD [address] [place] [address] Discharge Disposition: Home or Self [...] 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 No / Unsure 06/02/2021 10:06 AM AUTOMATION SPECIALIST documented as of this encounter Functional [...] NEEDLES 31G X 8 MM [facility] 01[facility]19[facility]2021 aspirin EC 81 MG tablet Take [...] st Contact Info) Description 04/25/2024 11:00 AM AUTOMATION SPECIALIST Appointment [facility] [address] [place] [address] Ti Bonilla MD [address] [place] [phone] 05/23/2024 3:30 PM AUTOMATION SPECIALIST Office Visit [facility] [address] [place] [address] Jyoti Escobar MD [address] [place], [place] [phone] documented as of this encounter Procedures Procedure Name Priority Date/Time Associated Diagnosis Comments COMPREHENSIVE METABOLIC PANEL Routine 06/02/2021 10:19 AM AUTOMATION SPECIALIST Edema documented in this encounter Results * (ABNORMAL) COMPREHENSIVE METABOLIC PANEL (06/02/2021 10:19 AM AUTOMATION SPECIALIST) SODIUM S/P/B 141 136 - 145 MMOL/L 06/02/2021 10:42 AM [facility] POTASSIUM S/P/B 4.3 3.5 - 5.1 MMOL/L 06/02/2021 10:42 AM [facility] CHLORIDE S/P/B 103 98 - 107 MMOL/L 06/02/2021 10:42 AM [facility] CO2 31.5 21.0 - 32.0 MMOL/L 06/02/2021 10:42 AM [facility] GLUCOSE 152(H) 70 - 99 MG/DL 06/02/2021 10:42 AM [facility] Comment: FASTING GLUCOSE 100 TO 125 MG/DL IS CONSISTENT WITH IMPAIRED FASTING GLUCOSE. FASTING GLUCOSE >125 MG/DL IS CONSISTENT WITH DIABETES. RANDOM GLUCOSE >200 MG/DL WITH HYPERGLYCEMIC SYMPTOMS IS CONSISTENT WITH DIABETES. PER ADA GUIDELINES BUN 18 6 - 24 MG/DL 06/02/2021 10:42 AM [facility] CREATININE S/P/B 1.21 0.70 - 1.30 MG/DL 06/02/2021 10:42 AM [facility] CALCIUM S/P/B 8.4 8.4 - 10.5 MG/DL 06/02/2021 10:42 AM [facility] BILIRUBIN TOTAL S/P/B 0.4 0.2 - 1.0 MG/DL 06/02/2021 10:42 AM [facility] Comment: THIS ASSAY IS NOT RECOMMENDED FOR PATIENTS UNDERGOING TREATMENT WITH ELTROMBOPAG DUE TO THE POTENTIAL FOR FALSELY ELEVATED RESULTS. ALKALINE PHOSPHATASE S/P/B 77 45 - 115 U/L 06/02/2021 10:42 AM [facility] AST 21 15 - 37 U/L 06/02/2021 10:42 AM [facility] ALT 37 16 - 63 U/L 06/02/2021 10:42 AM [facility] TOTAL PROTEIN S/P/B 7.2 6.4 - 8.2 G/DL 06/02/2021 10:42 AM [facility] ALBUMIN S/P/B 3.1(L) 3.4 - 5.0 G/DL 06/02/2021 10:42 AM [facility] ANION GAP 6.5 5.0 - 15.0 MMOL/L 06/02/2021 10:42 AM [facility] OSMOLALITY (CALC) 297 MOSM/KG 022 10:42 AM [facility] Comment:REFERENCE RANGE NOT ESTABLISHED EGFR NON-AFR. AMER. 64(L) >89 ML/MIN/1. 73 M2 06/02/2021 10:42 AM [facility] EGFR AFR. AMER. 74(L) >89 ML/MIN/1. 73 M2 06/02/2021 10:42 AM [facility] GFR NOTES GFR REFERENCE S: 06/02/2021 10:42 AM [facility] Comment: THE ESTIMATED GFR IS CALCULATED [...] <15 ml/min/1.73 m2 06/02/2021 10:1 9 AM AUTOMATION SPECIALIST Vernon Mercedes MD LABORATORY Final Result [facility] [address] [place] [address], documented in this encounter Visit Diagnoses Diagnosis Edema documented in this encounter Care Teams Business Management Intern Relationship Specialty Start Date End Date Vernon Mercedes MD [address] [place] [address] PCP - General FAMILY PRACTICE 10/27/15 12/02/21 Evaristo Allan MD [facility] [place] [address] [place] Ret[employer] Load Expediter CARDIOVASCULAR DISEASE 08/19/16 Raul Santana MD [facility] [place] [address] CLINICAL CARDIAC ELECTROPHYSIOLOGY 06/16/17 Danny Blackwell MD [address] [place] [address] ORTHOPAEDIC SURGERY 05/01/19 Gayle Arce APRN, [employer] SPANISH TEACHER-C [address] [facility] [address] [place] [address] NURSE PRACTITIONER 03/03/20 documented as of this encounter
--- OUTSIDE RECORDS SUMMARY | 2024-04-23 04:25 | XMS_ITS | Encounter Summary ---
Author Organization [facility] Address [address] [place] [address]. [place], [place] [id number] [place] [address] Care Team Providers Care Director Of Community Services Name Role Phone Vernon Mercedes MD Primary Care Provider [phone] Evaristo Allan MD Unavailable Unavailabl Raul Duran MD Unavailable Unavailabl Danny Lopes MD Unavailable [phone] Gayle Arce APRN QUALITY CONTROL ANALYST-C Unavailable Reason for Visit * Reason Comments Ankle Injury Encounter Details Date Type Department Care Team (Late st Contact Info) Description 01/03/2021 11:04 AM CDT - 01/03/2021 1:00 PM CDT [facility] [address] [place] [address] [place] [address] Daniel Olsen MD [address] [place] [address] Ankle Injury Discharge Disposition: Home or Self Care (Routine [...] 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 No / Unsure 01/03/2021 10:58 AM CDT documented as of this encounter Last Filed Vital Signs Vital Sign Reading Time Taken Comments Blood Pressure 121/88 01/03/2021 12:00 PM CDT Pulse 67 01/03/2021 12:00 PM CDT Temperature 36 ??C (96.8 ??F) 01/03/2021 11:06 AM CDT Respiratory Rate 20 01/03/2021 12:00 PM CDT Oxygen Saturation 96% 01/03/2021 12:00 PM CDT Inhaled Oxygen Concentration - - Weight 121.1 kg (267 lb) 01/03/2021 11:06 AM CDT Height 177.8 cm (5' 10 ) 01/03/2021 11:06 AM CDT Body Mass Index 38.31 01/03/2021 11:06 AM CDT documented in this encounter Functional [...] cannot be sent through Care Everywhere. * Ankle Sprain Discharge Instructions (Citizen Of [place]) * Foot Sprain Discharge Instructions (Citizen [place]) * CRUTCH MOBILITY: PARTIAL WEIGHT BEARING (TURK[place]) documented in this encounter Medications at Time [...] as of this encounter ED Notes * Daniel Olsen MD - 01/03/2021 12:24 PM CDT Chief Complaint Chief Complaint Patient presents with ??? Ankle Injury History of Present Illness 61-year-old male complaining of right ankle and foot injury. Patient said he injured his ankle and foot Tuesday when he stepped into a hole and twisted it. Patient is able to bear some weight but hurts. Patient denies head injury or rib injury. Pain is mild to moderate and constant. Pain does radiate up the mar. Medical History ALLERGIES: Allergies Allergen Reactions ??? Doxycycline Other (see comment) Blisters in the mouth ? ? Tetracyclines & Related Other (see comment) Blisters in the mouth MEDICATIONS: Prior to Admission medications Medication Sig Start Date End Date Taking? Authorizing Provider amitriptyline 100 MG tablet Take 100 mg by mouth daily. 09/10/20 Doc Abstract aspirin EC 81 MG tablet Take 81 mg by mouth daily. 10/18/19 DUC Rodriguez-ANDERSON atorvastatin 40 MG tablet Take 40 mg by mouth nightly at bedtime. Doc Abstract carbidopa-levodopa 25-100 MG tablet Take 1 tablet by mouth 3 (three) times daily. 01/03/20 Doc Abstract COMPRESSION STOCKINGS 20-30 mmhg by Does not apply route daily. 03/06/20 Gayle Arce APRN, QUALITY CONTROL ANALYST-C dabigatran (PRADAXA) 150 MG Cap Take 1 capsule (150 mg total) by mouth 2 (two) times daily. 12/28/20Gayle Arce APRN, QUALITY CONTROL ANALYST-C famotidine 40 MG tablet Take 40 mg by mouth daily. 12/06/20 Doc Abstract furosemide 20 MG tablet Take 20 mg by mouth daily. 01/28/17 Doc Abstract gabapentin 300 MG capsule Take 300 mg by mouth 2 (two) times a day. 02/06/18 Doc Abstract LEVEMIR 100 UNIT/ML injection Inject 44 Units into the skin nightly at bedtime. 12/29/17 Doc Abstract metFORMIN 850 MG tablet Take 850 mg by mouth 2 (two) times daily with meals. 10/25/18 Doc Abstract metoprolol succinate ER 100 MG 24 hr tablet Take 1 tablet (100 mg total) by mouth 2 (two) times a day. 12/23/20 Gayle Arce APRN, QUALITY CONTROL ANALYST-C nitroglycerin 0.[address] 1 tablet (0.4 mg total) under the tongue every 5 (five) minutes as needed for Chest Pain. 01/04/18 Evaristo Allan MD NOVOLOG FLEXPEN 100 UNIT/ML injection (PEN) Inject 42 Units as directed 3 (three) times daily before meals. And 44 units in the morning 09/13/19 Doc Abstract tamsulosin 0.4 MG Cap Take 0.4 mg by mouth daily. Doc Abstract traMADol 50 MG tablet Take 1 tablet by mouth 3 (three) times a day. 11/19/19 Doc Abstract PAST MEDICAL HISTORY: Past Medical History: Diagnosis Date ??? Abnormal stress test ??? Arthritis ??? 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 Coronary artery disease ??? Diabetes (CMS/HCC) ??? Fatigue ??? GERD (gastroesophageal reflux disease) ??? Headache ??? Hyperlipidemia ??? Hypertension has had elevated B/P readings ??? Kidney stone ??? SARAI on CPAP ??? Paroxysmal atrial fibrillation (CMS/HCC) ??? PONV (postoperative nausea and vomiting) PAST SURGICAL HISTORY: Past Surgical History: Procedure Laterality Date ??? CARDIAC CATHETERIZATION 01/04/2018 occluded prox RCA w/well developed uxyn-ro-putrp collaterals lvef 55-60% ??? CARDIAC CATHETERIZATION 11/13/2018 ??? FRACTURE SURGERY ??? 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 HERNIA REPAIR ??? JOINT REPLACEMENT ??? KNEE ARTHROPLASTY Bilateral ??? LITHOTRIPSY ??? XA ABLATION 05/19/2016 ??? XA CORONARY INTERVENTION 03/24/2018 MAMMOGRAPHY TECHNOLOGIST PCI-mid RCA FAMILY HISTORY: Family History Problem Relation Name Age of Onset ??? Hypertension Mother ??? Hypertension Sister ??? Cancer Brother ??? Diabetes Brother ??? Other (PVD) Brother ??? Hypertension Sister ??? No Known Problems Father ??? No Known Problems Paternal Grandfather ??? No Known Problems Paternal Grandmother ??? No Known Problems Maternal Grandfather ??? No Known Problems Maternal Grandmother SOCIAL HISTORY: Social History Tobacco Use ??? Smoking status: Never Smoker ??? Smokeless tobacco: Never Used Substance Use Topics ??? Alcohol use: Yes Comment: social ??? Drug use: No Review of Systems Review of Systems Constitutional: Negative for fever. HENT: Negative for voice change. Skin: Negative for color change. Neurological: Negative for speech difficulty. Psychiatric/Behavioral: Negative for agitation. All other systems reviewed and are negative. Physical Exam Filed Vitals: 01/03/21 1106 BP: (!) 137/90 Pulse: 96 Resp: 20 Temp: 96.8 ??F (36 ??C) TempSrc: Temporal SpO2: 96% Weight: 121.1 kg (267 lb) Height: 5' 10 (1.778 m) Physical Exam Constitutional: General: He is not in acute distress. Appearance: He is well-developed. HENT: Head: Atraumatic. Neck: Comments: Normal inspection Cardiovascular: Rate and Rhythm: Normal rate and regular rhythm. Heart sounds: No murmur. Pulmonary: Effort: No respiratory distress. Breath sounds: Normal breath sounds. No stridor. No wheezing. Musculoskeletal: Comments: Right knee-nontender Right ankle-mild swelling, tenderness anteriorly, no calf tenderness, Homans negative Right foot-tenderness in the proximal first metatarsal, normal dorsalis pedis pulse, patient able to move left toes, no pain on passive range of motion of the right toes and ankle Skin: General: Skin is dry. Capillary Refill: Capillary refill takes less than 2 seconds. Neurological: General: No focal deficit present. Mental Status: He is alert. Psychiatric: Mood and Affect: Mood normal. Diagnostic Studies / Procedures ELECTROCARDIOGRAMS: No results found for this visit on 01/03/21. LABORATORY STUDIES: No results found for this visit on 01/03/21. IMAGING STUDIES XR ANKLE RT 2V Final Result by User, [id number] (01/03 1208) EXAMINATION: X-ray right ankle, 2 views HISTORY: Twisting injury. Right ankle pain and swelling. COMPARISON: None. TECHNIQUE: AP and lateral views of the right ankle. FINDINGS: No evidence of acute fracture or dislocation. The ankle mortise and talar dome appear intact. Small well-corticated ossific densities are noted, likely related to previous trauma or arthritic change. There is lateral ankle soft tissue swelling. There is atherosclerotic vascular disease. There are prominent plantar and Achilles calcaneal enthesophytes. IMPRESSION: No acute osseous abnormalities identified. Referred By: Interpreted By: Kris Lea DO, 01/03/2021 12:05 PM XR FOOT RT 3V Final Result by User, [id number] (01/03 1346) Examination: Right foot 3 views Exam date/time: 01/03/2021 11:48 AM Reason For Exam: 61 male. Right ankle twisting injury. Pain and swelling Comparison: None Technique: AP, oblique and lateral views of the right foot were obtained. Findings: No convincing fracture, dislocation or other acute osseous injury. There is no hallux valgus or Lisfranc dislocation. Normal bone density. No erosive or destructive changes. There are claw toe deformities of second through fifth toes. There is a moderate bulky degenerative marginal bone spurring is relatively preserved joint spaces appear prominent scattered enthesopathy. Large Achilles insertional enthesophyte and moderate plantar calcaneal spur. Peripheral vascular arterial calcification ===== IMPRESSION:===== 1. No right foot acute injury identified. No fracture or dislocation. 2. Multiple toe claw toe deformity. 3. Scattered marginal enthesopathy. 4. Calcaneal spurring Referred By: Interpreted By: Rosa Elena Steele MD, 01/03/2021 12:02 PM ED Course / Medical Decision Making We will discharge on Aircast and crutches Patient denies any plantar fasciitis pain at this time MDM Number of Diagnoses or Management Options Ankle sprain: new and requires workup Foot sprain: new and requires workup Amount and/or Complexity of Data Reviewed Tests in the radiology section of CPT??: reviewed Risk of Complications, Morbidity, and/or Mortality Presenting problems: low Diagnostic procedures: moderate Management options: low Patient Progress Patient progress: stable Clinical Impression Ankle sprain (Primary) Foot sprain Disposition: Discharge Daniel Olsen MD 01/03/21 1228 * Sona Pro RN - 01/03/2021 11:02 AM CDT Right ankle injury on Tuesday, states that he stepped in a hole and twisted his ankle. Noted swelling and pain. documented in this encounter Plan of Treatment Upcoming Encounters Date Type Department Care Team (Late st Contact Info) Description 04/25/2024 11:00 AM HVAC ESTIMATOR Appointment [facility] [address] [facility] [place] [address] Ti Bonilla MD [address] [place] [phone] 05/23/2024 3:30 PM HVAC ESTIMATOR Office Visit [facility] [address] [facility] [place] [address] Jyoti Escobar MD [address] [place] [phone] documented as of this encounter Procedures Procedure Name Priority Date/Time Associated Diagnosis Comments XR ANKLE RT 2V STAT 01/03/2021 11:48 AM CDT XR FOOT RT 3V STAT 01/03/2021 11:48 AM CDT documented in this encounter Results * XR FOOT RT 3V (01/03/2021 11:48 AM CDT) Anatomical Region Laterality Modality Foot Radiographic Shannan ging 01/03/2021 12:0 2 PM CDT Impressions 01/03/2021 12:06 PM CDT IMPRESSION:===== 1. ??No right foot acute injury identified. ??No fracture or dislocation. 2. ??Multiple toe claw toe deformity. 3. ??Scattered marginal enthesopathy. 4. ??Calcaneal spurring Referred By: ?? Interpreted By: Rosa Elena Steele MD, 01/03/2021 12:02 PM Narrative 01/03/2021 12:06 PM CDT Examination: Right foot 3 views Exam date/time: 01/03/2021 11:48 AM Reason For Exam: ??61 male. ??Right ankle twisting injury. ??Pain and swelling ?? Comparison: None Technique: AP, oblique and lateral views of the right foot were obtained. Findings: No convincing fracture, dislocation or other acute osseous injury. There is no hallux valgus or Lisfranc dislocation. Normal bone density. ??No erosive or destructive changes. There are claw toe deformities of second through fifth toes. There is a moderate bulky degenerative marginal bone spurring is relatively preserved joint spaces appear prominent scattered enthesopathy. ??Large Achilles insertional enthesophyte and moderate plantar calcaneal spur. Peripheral vascular arterial calcification ===== Procedure Note Rosa Elena Steele MD - 01/03/2021 Examination: Right foot 3 views Exam date/time: 01/03/2021 11:48 AM Reason For Exam: 61 male. Right ankle twisting injury. Pain andswelling Comparison: None Technique: AP, oblique and lateral views of the right foot wereobtained. Findings: No convincing fracture, dislocation or other acute osseousinjury. There is no hallux valgus or Lisfranc dislocation. Normal bone density. No erosive or destructive changes. There are claw toe deformities of second through fifth toes. There is a moderate bulky degenerative marginal bone spurring isrelatively preserved joint spaces appear prominent scattered enthesopathy.Large Achilles insertional enthesophyte and moderate plantar calcanealspur. Peripheral vascular arterial calcification ===== IMPRESSION:===== 1. No right foot acute injury identified. No fracture or dislocation. 2. Multiple toe claw toe deformity. 3. Scattered marginal enthesopathy. 4. Calcaneal spurring Referred By: Interpreted By: Rosa Elena Steele MD, 01/03/2021 12:02 PM Daniel Olsen MD GENERAL IMAGING Final Result * XR ANKLE RT 2V (01/03/2021 11:48 AM CDT) Anatomical Region Laterality Modality Ankle Radiographic Shannan ging 01/03/2021 12:0 5 PM CDT Impressions 01/03/2021 12:07 PM CDT IMPRESSION: No acute osseous abnormalities identified. Referred By: ?? Interpreted By: Kris Lea DO, 01/03/2021 12:05 PM Narrative 01/03/2021 12:07 PM CDT EXAMINATION: X-ray right ankle, 2 views HISTORY: Twisting injury. ??Right ankle pain and swelling. COMPARISON: None. TECHNIQUE: AP and lateral views of the right ankle. FINDINGS: No evidence of acute fracture or dislocation. ??The ankle mortise and talar dome appear intact. ??Small well-corticated ossific densities are noted, likely related to previous trauma or arthritic change. ??There is lateral ankle soft tissue swelling. ??There is atherosclerotic vascular disease. ??There are prominent plantar and Achilles calcaneal enthesophytes. ?? Procedure Note Kris Lea DO - 01/03/2021 EXAMINATION: X-ray right ankle, 2 views HISTORY: Twisting injury. Right ankle pain and swelling. COMPARISON: None. TECHNIQUE: AP and lateral views of the right ankle. FINDINGS: No evidence of acute fracture or dislocation. The ankle mortise and talardome appear intact. Small well-corticated ossific densities are noted,likely related to previous trauma or arthritic change. There is lateralankle soft tissue swelling. There is atherosclerotic vascular disease.There are prominent plantar and Achilles calcaneal enthesophytes. IMPRESSION: No acute osseous abnormalities identified. Referred By: Interpreted By: Kris Lea DO, 01/03/2021 12:05 PM Daniel Olsen MD GENERAL IMAGING Final Result documented in this encounter Visit Diagnoses Diagnosis Ankle sprain- Primary Sprain of ankle, unspecified site Foot sprain Sprain of foot, unspecified site documented in this encounter Care Teams Director Of Community Services Relationship Specialty Start Date End Date Vernon Mercedes MD [address] [place] [phone] PCP - General FAMILY PRACTICE 10/27/15 12/02/21 Evaristo Allan MD [facility] [place] [address] [place] [employer] Supervisor CARDIOVASCULAR DISEASE 08/19/16 Raul Santana MD [address] [place], [place] [address] [address] CLINICAL CARDIAC ELECTROPHYSIOLOGY 06/16/17 Danny Blackwell MD [address] [place] [address] ORTHOPAEDIC SURGERY 05/01/19 Gayle Arce APRN, QUALITY CONTROL ANALYST-C [address] [facility] [address] [place] [address] NURSE PRACTITIONER 03/03/20 documented as of this encounter
--- OUTSIDE RECORDS SUMMARY | 2024-04-23 04:25 | XMS_ITS | Encounter Summary ---
Author Organization [facility] Address [address] [place] [address]. 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 No / Unsure 02/24/2021 11:31 AM MEDICAL DIAGNOSTIC RADIOGRAPHER documented as of this encounter Functional [...] Contact Info) Description 04/25/2024 11:00 AM MEDICAL DIAGNOSTIC RADIOGRAPHER Appointment [facility] [address] [place] [address] Ti Bonilla MD [address] [place] [phone] 05/23/2024 3:30 PM MEDICAL DIAGNOSTIC RADIOGRAPHER [facility] [address] [place] [address] Jyoti Escobar MD [address] [place] [address] documented as of this encounter Visit Diagnoses Not on filedocumented in this encounter Care Teams Manager Style Relationship Specialty Start Date End Date Vernon Mercedes MD [facility] [place] [phone] PCP - General FAMILY PRACTICE 10/27/15 12/02/21 Evaristo Allan MD [address] [place] [address] [place] Physician Assistant Primary Care CARDIOVASCULAR DISEASE 08/19/16 Raul Santana MD [address] [place] [address] CLINICAL CARDIAC ELECTROPHYSIOLOGY 06/16/17 Danny Blackwell MD [address] [place] [address] ORTHOPAEDIC SURGERY 05/01/19 Galye Arce, STEEL ERECTOR, HONING MACHINE TRY OUT SETTER-C [address] [facility] [address] [place] [phone] NURSE PRACTITIONER 03/03/20 documented as of this encounter
--- OUTSIDE RECORDS SUMMARY | 2024-04-23 04:25 | XMS_ITS | Encounter Summary ---
Author Organization [facility] Address [address] [place] [address]. [place] [address] [place] [address] Care Team Providers Care Rock Picker Name Role Phone Vernon Mercedes MD Primary Care Provider [phone] Evaristo Allan MD Unavailable Unavailabl Raul Duran MD Unavailable Unavailabl Danny Lopes MD Unavailable [phone] Gayle Arce APRN, SENIOR PROGRAM PLANNER-C Unavailable [phone] Reason for Visit * Reason Onset Date Comments Medication Information 01/28/2021 Pradaxa Encounter Details Date Type Department Care Team ([facility] Contact Info) Description 01/28/2021 [facility]phone [facility] [address] [place] [address] Gayle Arce APRN, SENIOR PROGRAM PLANNER-C [address] [facility] [address] [place] [address] Medication Information (Pradaxa) Social History Tobacco Use Types Packs/Day [...] 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 No / Unsure 02/24/2021 11:31 AM AUDIO VISUAL AIDE documented as of this encounter Functional Status [...] Author Status No 10/15/2019 4:47 PM Kaylyn Rodriguze RN Active * Because of a physical, [...] Progress Notes * Nalini Orlando RN - 03/09/2021 8:15 AM CST Received notification of approval for pradaxa from 03/05/21-03/05/22 Phoned Leo Winchester in [place], message left of above approval notice Phoned patient, message left of above approval for Pradaxa. O VISUAL AIDE * Nalini Orlando RN - 03/05/2021 11:58 AM CST Phoned states Leo PA is still needed refaxed PA form that was sent on 02/02 O VISUAL AIDE * Nalini Orlando RN - 03/05/2021 8:19 AM CST Attempted to phone Walter winchester to check statatus of PA Pharmacy closed, will try back later O VISUAL AIDE * Alice Russell RN - 03/02/2021 12:27 PM CST Patient called and stated that pharmacy told him that they are still needing a PA for the Pradaxa 150 mg. He only has 2 pills left. Please call him back at [phone]. O VISUAL AIDE * Nalini Orlando RN - 02/02/2021 10:45 AM CDT PA form completed and faxed to [facility] at [phone] * Nalini Orlando RN - 01/29/2021 3:41 PM CDT Phoned below number- BC/BS pharmacy line BC/BS to fax PA form to be completed. * Nalini Orlando RN - 01/29/2021 2:07 PM CDT Phoned Leo winchester obtained information for PA for pradaxa Insurance phone number: * Jasmina Felipe RN - 01/29/2021 9:22 AM CDT Patient hasn't seen our office since 2019 and did not schedule follow up despite multiple attempts.Will defer to your office for PA. * Mavis Mccullough - 01/28/2021 3:29 PM CDT Pt called stating he will need a prior auth in order to refill his pradaxa for next year. Pt can bereached at [phone]. He just refilled for 30 days. documented in this encounter Plan of Treatment Upcoming Encounters Date Type Department Care Team (Late st Contact Info) Description 04/25/2024 11:00 AM AUDIO VISUAL AIDE Appointment [facility] [address] [place], [place] [phone] Ti Bonilla MD [address] [place] [phone] 05/23/2024 3:30 PM AUDIO VISUAL AIDE Office Visit [facility] [address] [place] [phone] Jyoti Escobar MD [address] [place] [address] documented as of this encounter Visit Diagnoses Not on filedocumented in this encounter Care Teams Rock Picker Relationship Specialty Start Date End Date Vernon Mercedes MD [facility] [place] [phone] PCP - General FAMILY PRACTICE 10/27/15 12/02/21 [place] [address] [place] [employer] CARDIOVASCULAR DISEASE 08/19/16 Raul Santana MD [address] [address] CLINICAL CARDIAC ELECTROPHYSIOLOGY 06/16/17 Danny Blackwell MD [address] [place], [place] [phone] ORTHOPAEDIC SURGERY 05/01/19 Gayle Arce APRN, SENIOR PROGRAM PLANNER-C [address] [facility] [address] [place] [address] NURSE PRACTITIONER 03/03/20 documented as of this encounter
--- OUTSIDE RECORDS SUMMARY | 2024-04-23 04:26 | XMS_ITS | Encounter Summary ---
Author Organization [facility] Address [address] [place] [address]. [place], [place] [address] [place] [address] Care Team Providers Care Hebrew Cantor Name Role Phone Vernon Mercedes MD Primary Care Provider [phone] Evaristo Allan MD Unavailable UnavailRaul Suresh MD Unavailable Unavailabl Danny Lopes MD Unavailable [phone] Gayle Arce APRN, ONCOLOGY NURSE-C Unavailable Reason for Visit * Reason Comments Hospital H&P (SCAN) Encounter Details Date Type Department Care Team (Late st Contact Info) Description 06/23/2020 Scan [facility] Information Services [address] [facility] [place] [address] Scanned, Documents Hospital H&P (SCAN) Social History Tobacco Use Types Packs/Day [...] 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 [address] [place] [phone] Jyoti Escobar MD [address] [place] [phone] documented as of this encounter Visit Diagnoses Not on filedocumented in this encounter Care Teams Hebrew Cantor Relationship Specialty Start Date End Date Vernon Mercedes MD [address] [place] [phone] PCP - General FAMILY PRACTICE 10/27/15 12/02/21 Evaristo Allan MD [address] [facility] [place] [address] [facility] CARDIOVASCULAR DISEASE 08/19/16 Raul Santana MD [address] [place] [address] CLINICAL CARDIAC ELECTROPHYSIOLOGY 06/16/17 Danny Blackwell MD [address] [place] [address] ORTHOPAEDIC SURGERY 05/01/19 Gayle Arce APRN, ONCOLOGY NURSE-C [address] [facility] [address] [place] [address] NURSE PRACTITIONER 03/03/20 documented as of this encounter
--- OUTSIDE RECORDS SUMMARY | 2024-04-23 04:26 | XMS_ITS | Encounter Summary ---
Author Organization [facility] Address [address] [place] [address]. 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 No / Unsure 12/10/2019 2:31 PM CDT documented as of this encounter [...] Contact Info) Description 04/25/2024 11:00 AM RETAIL ASSOCIATE Appointment [facility] [address] [place] [address] Ti Bonilla MD [address] [place] [phone] 05/23/2024 3:30 PM RETAIL ASSOCIATE Office Visit [facility] [address] [place] [phone] Jyoti Escobar MD [address] [place] [phone] documented as of this encounter Visit Diagnoses Not on filedocumented in this encounter Care Teams Accounting File Clerk Relationship Specialty Start Date End Date Vernon Mercedes MD [address] [place] [phone] PCP - General FAMILY PRACTICE 10/27/15 12/02/21 [place] [address] [place] Consultant Nurse CARDIOVASCULAR DISEASE 08/19/16 Raul Santana MD [address] [place] [address] CLINICAL CARDIAC ELECTROPHYSIOLOGY 06/16/17 Danny Blackwell MD [address] [place] [address] ORTHOPAEDIC SURGERY 05/01/19 documented as of this encounter
--- OUTSIDE RECORDS SUMMARY | 2024-04-23 04:26 | XMS_ITS | Encounter Summary ---
Author Organization [facility] Address [address] [place] [address]. [place], [place] [address] [place] [address] Care Team Providers Care Readers' Advisory Service Librarian Name Role Phone Vernon Mercedes MD Primary Care Provider [phone] Evaristo Allan MD Unavailable UnavailRaul Suresh MD Unavailable Unavailabl Danny Lopes MD Unavailable [phone] Reason for Visit * Physical Medicine (Routine) - Closed Specialty Diagnoses / Procedures Referred By Charito ledbetter Referred To Contact PHYSICAL THERAPY Diagnoses Prosthetic joint implant failure, subsequent encounter Aftercare following right knee joint replacement surgery Dari Piña FNP-BC [address] [place] [address] Phone: tel: fax: Referral ID Status Reason Start Date Expiration Date V isits Requested Visits Authorized [id number] Closed Physical Therapy 10/16/2019 11/14/2020 60 60 Encounter Details Date Type Department Care Team (Late st Contact Info) Description 11/26/2019 9:39 AM CDT - 11/26/2019 11:59 PM T Hospital Encounter [facility] [address] [place] [address] Dari Piña FNP-BC [address] [place] [address] Keiry Naranjo, [employer] [address] [place] [address] Discharge Disposition: Home or Self Care (Routine [...] 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 No / Unsure 11/26/2019 9:38 AM CDT documented as of this encounter [...] total) by mouth nightly at bedtime. 4 famotidine 20 MG tablet Take 2 tablets by mouth 2 (two) times a day. 08/29/2019 1 furosemide 20 MG tablet Take 20 mg by mouth daily. 01/28/2017 2 gabapentin 300 MG capsule Take 300 mg by mouth 3 (three) times daily. 02/06/2018 4 isosorbide mononitrate ER 30 MG 24 hr tablet Take 1 tablet (30 mg total) by mouth daily. 30 tablet 7 07/10/2019 0 LEVEMIR 100 UNIT/ML injection Inject 44 Units into the skin nightly at bedtime. 12/29/2017 4 metoprolol succinate ER 50 MG 24 hr tablet Take 50 mg by mouth daily. 1 nitroglycerin 0.[address] 1 tablet (0.4 mg total) under the tongue every 5 (five) minutes as needed for Chest Pain. 25 tablet 1 01/04/2018 4 oxyCODONE-acetami nophen 5-325 MG tabletIndications :Chronic Pain Take 1 tablet by mouth every 4 (four) hours as needed for Pain. Indications: Chronic Pain 30 tablet 11/16/2019 0 PRADAXA 150 MG Cap TAKE ONE CAPSULE BY MOUTH TWICE A DAY 60 capsule 11 04/04/2019 0 spironolactone 25 MG tablet Take 25 mg by mouth daily. 0 tamsulosin 0.4 MG Cap Take 1 capsule (0.4 mg total) by mouth daily. 4 documented as of this encounter Progress Notes * Keiry Naranjo PTA - 11/26/2019 9:52 AM CDT [facility] PHYSICAL THERAPY TREATMENT NOTE Time In: 946 Time Out: 1045 Total Time: 58 minutes Name: Evaristo Zelaya : 1960 Past Medical [...] CATHETERIZATION 01/04/2018 occluded prox RCA w/well developed [id number] collaterals lvef 55-60% ??? CARDIAC CATHETERIZATION 11/13/2018 ??? FRACTURE SURGERY ??? 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 HERNIA REPAIR ??? KNEE ARTHROPLASTY Bilateral ??? LITHOTRIPSY ??? XA ABLATION 05/19/2016 ??? XA CORONARY INTERVENTION 03/24/2018 PARIMUTUEL TICKET CHECKER PCI-mid RCA Subjective: Diagnosis: R TKA Referring Physician: ISAURO Sarah Onset Date: 10/15/19 Treatment Day: 12 Total Approved Visits: 60 Therapy Plan of Care: 3x/wk for 4 wks Subjective Note: Patient states he has noticed some burning along the outside of the knee last night and this morning. Patient states it woke him up last night however he was able to fall back asleep. Patient states he is about ready to kick the walker to the curb. Location of Pain: R knee Pre-treatment Pain: 04/27 Post-treatment Pain: Restriction/Precaution: WBAT Objective: AAROM knee flx: 102 degrees Treatment Performed: Therapeutic Exercise - 72102 Minutes Performed: 40 minutes Intervention: - Nustep WL2 x6 mins UE/LE - Slant board calf stretch x1 min x2 - Heel raises x20 - Hip abd/ext/flx RTB B x 20 ea (INITIATED BAND) - 6 step ups fw x20 - 6 step ups lat. x20 - Step stretch 10/10 - Squats x 15 HELD- PROM flexion/extension - heelslide with strap x5 mins with IASTM to quad on flexion stretch HELD- DKTC on peanut ball 2x10 HELD- quad set 10 sec x10 HELD- SAQ 5 sec x 20 - SLR x15 (INCRSD REPS) - Supine Bridges x 20 HELD- clamshells x 20 B - Heel prop 5# x5' Manual Therapy - 84711 Minutes Performed: 0' Intervention: HELD- IASTM to R quad Neuromuscular Reeducation - 58177 Minutes Performed: Intervention: N- Tandem Balance x1 min anya. Therapeutic Activities - 69318 Minutes Performed: Modalities Minutes Performed: 15' Intervention: - gameready to R knee x 15 min Total Treatment Time: 55 minutes Education Performed: Pt educated on the importance of HEP consistency multiple times per day to increase knee ROM. ASSESSMENT: Encouraged patient to perform all exercises in the parallel bars with only one hand hold assist forimproved strengthening as well as confidence in ability. Initiated balance activity for improved stability and continued progress towards no use of AD. Patient still seems hesitant on completely getting rid of the walker however is ambulating t/o the home with no AD at this time. Patient cont. To demonstrate improvement towards all goals. PLAN: Plan for next visit: Continue range of motion and strengthening. HEP: heel slide, quad set, HS stretch seated, clamshell, SAQ, SLR, bridge documented in this encounter Plan of Treatment Upcoming Encounters Date Type Department Care Team (Late st Contact Info) Description 04/25/2024 11:00 AM SHIP UNLOADER Appointment [facility] [address] [place], [place] [address] [address] Ti Bonilla MD [address] [place] [phone] 05/23/2024 3:30 PM SHIP UNLOADER Office Visit [facility] [address] [place] [address] Jyoti Escobar MD [address] [place] [phone] documented as of this encounter Visit Diagnoses Diagnosis Status post revision of total replacement of right knee documented in this encounter Care Teams Readers' Advisory Service Librarian Relationship Specialty Start Date End Date Vernon Mercedes MD [address] [place] [phone] PCP - General FAMILY PRACTICE 10/27/15 12/02/21 Evaristo Allan MD [address] [place] [address] [place] Organizational Effectiveness Consultant CARDIOVASCULAR DISEASE 08/19/16 Raul Santana MD [facility] [place] [address] CLINICAL CARDIAC ELECTROPHYSIOLOGY 06/16/17 Danny Blackwell MD [address] [place] [address] ORTHOPAEDIC SURGERY 05/01/19 documented as of this encounter
--- OUTSIDE RECORDS SUMMARY | 2024-04-23 04:26 | XMS_ITS | Encounter Summary ---
Author Organization [facility] Address [address] [place] [address]. [place], [place] [address] [place] [address] Care Team Providers Care Mud Temperer Name Role Phone Vernon Mercedes MD Primary Care Provider [phone] Evaristo Allan MD Unavailable Unavailabl Raul Duran MD Unavailable Unavailabl e Danny Blackwell MD Unavailable [phone] Encounter Details Date Type Department Care Team (Late st Contact Info) Description 12/03/2019 Orders Only [facility] [address] [place] [address], [facility] [address] [place] [address] Dianne Viera LPN Social History Tobacco Use Types Packs/Day Years [...] have Coronavirus / COVID-19? No / Unsure 11/30/2019 7:51 AM CDT documented as of this encounter [...] Contact Info) Description 04/25/2024 11:00 AM TEAM AUTOMOBILE ASSEMBLER Appointment [facility] [address] [place] [address] Ti Bonilla MD [address] [place] [phone] 05/23/2024 3:30 PM TEAM AUTOMOBILE ASSEMBLER Office Visit [facility] [address] [place] [address] Jyoti Escobar MD [address] [place] [address] [phone] documented as of this encounter Results * XR KNEE RT 2V (12/05/2019 3:26 PM CDT) Anatomical Region Laterality Modality Knee Radiographic Shannan ging 12/05/2019 6:42 PM CDT Impressions 12/05/2019 6:44 PM CDT IMPRESSION: 1) Stable appearance of the right knee revision prosthesis with no acute bony abnormalities. Interpreted By: Tim Huerta MD, 12/05/2019 6:42 PM Narrative 12/05/2019 6:44 PM CDT Examination: XR KNEE RT 2V, XR KNEE STAND AP VANITA ONLY Exam time: 12/05/2019 3:10 PM Clinical history: Follow-up for right knee prosthesis. Comparison: Previous studies were performed 11/16/2019 Technique: 3 views of the right knee and bilateral weightbearing radiographs. Findings: In the right knee there is a revision prosthesis in place. The position is proper. There are no acute bony abnormalities. Stable appearance of the prosthesis. On the left side there is also a knee prosthesis. No malalignment or acute bony abnormalities. Procedure Note Tim Huerta MD - 12/05/2019 Examination: XR KNEE RT 2V, XR KNEE STAND AP VANITA ONLY Exam time: 12/05/2019 3:10 PM Clinical history: Follow-up for right knee prosthesis. Comparison: Previous studies were performed 11/16/2019 Technique: 3 views of the right knee and bilateral weightbearing radiographs. Findings: In the right knee there is a revision prosthesis in place. The position is proper. There are no acute bony abnormalities. Stable appearance of the prosthesis. On the left side there is also a knee prosthesis. No malalignment or acute bony abnormalities. IMPRESSION: 1) Stable appearance of the right knee revision prosthesis with no acute bony abnormalities. Interpreted By: Tim Huerta MD, 12/05/2019 6:42 PM Danny Blackwell MD GENERAL IMAGING Final Result * XR KNEE STAND AP VANITA ONLY (12/05/2019 3:26 PM CDT) Anatomical Region Laterality Modality Knee Radiographic Shannan ging 12/05/2019 6:42 PM CDT Impressions 12/05/2019 6:44 PM CDT IMPRESSION: 1) Stable appearance of the right knee revision prosthesis with no acute bony abnormalities. Interpreted By: Tim Huerta MD, 12/05/2019 6:42 PM Narrative 12/05/2019 6:44 PM CDT Examination: XR KNEE RT 2V, XR KNEE STAND AP VANITA ONLY Exam time: 12/05/2019 3:10 PM Clinical history: Follow-up for right knee prosthesis. Comparison: Previous studies were performed 11/16/2019 Technique: 3 views of the right knee and bilateral weightbearing radiographs. Findings: In the right knee there is a revision prosthesis in place. The position is proper. There are no acute bony abnormalities. Stable appearance of the prosthesis. On the left side there is also a knee prosthesis. No malalignment or acute bony abnormalities. Procedure Note Tim Huerta MD - 12/05/2019 Examination: XR KNEE RT 2V, XR KNEE STAND AP VANITA ONLY Exam time: 12/05/2019 3:10 PM Clinical history: Follow-up for right knee prosthesis. Comparison: Previous studies were performed 11/16/2019 Technique: 3 views of the right knee and bilateral weightbearing radiographs. Findings: In the right knee there is a revision prosthesis in place. The position is proper. There are no acute bony abnormalities. Stable appearance of the prosthesis. On the left side there is also a knee prosthesis. No malalignment or acute bony abnormalities. IMPRESSION: 1) Stable appearance of the right knee revision prosthesis with no acute bony abnormalities. 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
--- OUTSIDE RECORDS SUMMARY | 2024-04-23 04:26 | XMS_ITS | Encounter Summary ---
Author Organization [facility] Address [address] [place] [address]. 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 No / Unsure 01/16/2020 1:58 PM CDT documented as of this encounter [...] st Contact Info) Description 04/25/2024 11:00 AM ROTOR COIL TAPER Appointment [facility] [address] [place] [address] [place] [address] Ti Bonilla MD [address] [place] [phone] 05/23/2024 3:30 PM ROTOR COIL TAPER Office Visit [facility] [address] [place] [address] Jyoti Escobar MD [address] [place] [address] Scheduled Orders Name Type Priority Associated Diagnoses Orde r Schedule ELECTROCARDIOGRAM (NON MIDMARK ACQUIRED) EKG-NonRad Routine Coronary artery disease involving [place] coronary artery of [place] heart without angina pectoris Ordered: 01/31/2020 documented as of this encounter Visit Diagnoses Diagnosis Coronary artery disease involving [place] coronary artery of [place] heart without angina pectoris- Primary documented in this encounter Care Teams Player Manager Relationship Specialty Start Date End Date Vernon Mercedes MD [address] [place] [phone] PCP - General FAMILY PRACTICE 10/27/15 12/02/21 Evaristo Allan MD [address] [place] [phone] [place] Motor Vehicle Inspector CARDIOVASCULAR DISEASE 08/19/16 Raul Santana MD [address] [place] [address] CLINICAL CARDIAC ELECTROPHYSIOLOGY 06/16/17 Danny Blackwell MD [address] [place] [address] ORTHOPAEDIC SURGERY 05/01/19 documented as of this encounter
--- OUTSIDE RECORDS SUMMARY | 2024-04-23 04:26 | XMS_ITS | Encounter Summary ---
Author Organization [facility] Address [address] [place] [address]. [place], [place] [address] [place] [address] Care Team Providers Care Freight Loading Supervisor Name Role Phone Vernon Mercedes MD Primary Care Provider [phone] Evaristo Allan MD Unavailable Unavailabl e Raul Santana MD Unavailable Unavailabl e Danny Blackwell MD Unavailable [phone] Reason for Visit * Reason Comments Jnt Pain/Knee * Physical Medicine (Routine) - Closed Specialty Diagnoses / Procedures Referred By Charito ledbetter Referred To Contact PHYSICAL THERAPY Diagnoses Prosthetic joint implant failure, subsequent encounter Aftercare following right knee joint replacement surgery Dari Piña FNP-ANDERSON [address] [place] [address] Phone: tel: fax: Referral ID Status Reason Start Date Expiration Date V isits Requested Visits Authorized [id number] Closed Physical Therapy 10/16/2019 11/14/2020 60 [phone] Encounter Details Date Type Department Care Team (Late st Contact Info) Description 12/17/2019 1:45 PM CDT - 12/17/2019 11:59 PM CDT Hospital Encounter [facility] [address] [place] [address] Dari Piña FNP-ANDERSON [address] [place] [address] Rossy Cardenas, DPT Jnt Pain/Knee Discharge Disposition: Home or Self Care (Routine [...] have Coronavirus / COVID-19? No / Unsure 12/17/2019 1:54 PM CDT documented as of this encounter [...] mouth 3 (three) times daily. 02/06/2018 4 HYDROcodone-aceta minophen 5-325 MG tablet 12/12/2019 0 isosorbide mononitrate ER 30 MG 24 hr [...] as of this encounter Progress Notes * Rossy Cardenas DPT - 12/17/2019 1:57 PM CDT SFL PHYSICAL THERAPY RE-EVALUATION NOTE Time In: 1355 Time Out: 1440 Total Time: 45 minutes Name: Evaristo Zelaya : 1960 Past [...] CATHETERIZATION 01/04/2018 occluded prox RCA w/well developed [id number] collaterals lvef 55-60% ??? CARDIAC CATHETERIZATION 11/13/2018 ??? FRACTURE SURGERY ??? 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 HERNIA REPAIR ??? KNEE ARTHROPLASTY Bilateral ??? LITHOTRIPSY ??? XA ABLATION 05/19/2016 ??? XA CORONARY INTERVENTION 03/24/2018 BRICK TENDER PCI-mid RCA Subjective: Diagnosis: R TKA Referring Physician: ISAURO Sarah Onset Date: 10/15/19 Treatment Day: Total Approved Visits: 60 Therapy Plan of Care: 3x/wk for 4 wks Subjective Note: Patient reports he was having pain in the same medial aspect of R knee and into his right mar after his last visit. He states this pain is sharp and shooting. Patient was 10 minuteslate to appointment today. His biggest complaints are the pain in the medial aspect of his right knee, difficulty getting in and out of a chair, and limitations in knee flexion. Location of Pain: R knee Pre-treatment Pain: 0/10 Post-treatment Pain: 0/10 Restriction/Precaution: WBAT Objective: KNEE??ROM Left??AROM Right??P/AROM (12/17/19) Knee extension 110 1/1 Knee flexion 1 104/100 ? Functional Activity Performance Gait:??Patient ambulates with step through gait pattern, with L step length and R stance time decreased. He ambulates with decreased knee flexion/extension on the R. He is ambulating with a LBQC. Note significant ER bilaterally. Sit to Stand:??Patient performs with decreased R knee flexion when standing, antalgia, and mild instability. Treatment Performed: Therapeutic Exercise - 91421 Minutes Performed: 45 minutes Intervention: - Nustep WL2 x6 mins UE/LE - Slant board calf stretch x1 min x2 - Heel raises/toe raises x20 - Hip abd/ext/flx GTB B x 20 ea - side stepping GTB x 5 laps - 6 step ups fw x20 - 6 step ups lat. x20 HELD- Step stretch 10/10 HELD- HS stretch 30 sec x 3 HELD- HS curl x 20 on R HELD- Squats x 10 HELD- sit to stand from plinth x 10 HELD- PROM flexion/extension HELD- heelslide with strap x5 mins with IASTM to quad on flexion stretch HELD- DKTC on peanut ball 2x10 - quad set 10 sec x10 - SAQ 2lb 10 sec x 10 - SLR 2x10 HELD- Supine Bridges x 20 - LAQ 3lb 3 x 20 HELD- clamshells x 20 B HELD- Heel prop 5# x5' N - contract relax 8x8 seconds x 5 - re evaluation Manual Therapy - 48170 Minutes Performed: 0' Intervention: HELD- IASTM to R quad Neuromuscular Reeducation - 19629 Minutes Performed: 0 minutes Intervention: - Tandem Balance x1 min anya. x2 - Foam balance NBOS x1 min Therapeutic Activities - 46591 Minutes Performed: Modalities Minutes Performed: 0 Intervention: HELD- gameready to R knee x 15 min Total Treatment Time: 45 minutes Education Performed: Educated patient to continue current HEP. GOALS: Pt will increase R knee flexion AROM from 60 to 110 to improve his ability to climb stairs after 4 weeks of physical therapy. [NOT MET] Pt will increase R knee extension AROM from 4 to 0 to improve his ability to walk with proper mechanics in the grocery store after 4 weeks of physical therapy. [NOT MET] Pt will present with gross R LE strength to 4+/5 to improve tolerance for squatting activities after 4 weeks of physical therapy. [NOT MET] Pt will reduce edema from 42.5 to 37 cm after 4 weeks of physical therapy. [NOT MET] Pt will increase LEFS score from 6 to 15 to meet the MCID after 4 weeks of physical therapy. [GOAL MET 11/28/19] Pt will be independent with HEP after 2 weeks of physical therapy [GOAL MET 11/28/19] ASSESSMENT: Mr. Zelaya has been seen for a total of 20 physical therapy visits post right TKA revision. He continues to demonstrate poor quadricep strength noted by his knee giving out and difficulty performing aSLR while maintaining terminal extension. He will benefit from continued strengthening of the quadricep and R knee flexion ROM. PLAN: Plan for next visit: Continue range of motion and strengthening. Continue to practice sit to standssince patient is having significant difficulty with this. Continue SLR to eliminate extensor lag. HEP: heel slide, quad set, HS stretch seated, clamshell, SAQ, SLR, bridge, sit to stands Cosigned by ISAURO Rodriguez at 12/17/2019 9:25 PM CDT documented in this encounter Plan of Treatment Upcoming Encounters Date Type Department Care Team (Late st Contact Info) Description 04/25/2024 11:00 AM SPONGE PACKER Appointment [facility] [address] [place] [address] Ti Bonilla MD [address] [place] [phone] 05/23/2024 3:30 PM SPONGE PACKER Office Visit [facility] [address] [place] [phone] Jyoti Escobar MD [address] [place] [phone] documented as of this encounter Visit Diagnoses Diagnosis Status post revision of total replacement of right knee documented in this encounter Care Teams Freight Loading Supervisor Relationship Specialty Start Date End Date Vernon Mercedes MD [address] [place] [phone] PCP - General FAMILY PRACTICE 10/27/15 12/02/21 Evaristo Allan MD [address] [place] [address] [employer] Quality Intern CARDIOVASCULAR DISEASE 08/19/16 Raul Santana MD [address] [place] [address] CLINICAL CARDIAC ELECTROPHYSIOLOGY 06/16/17 Danny Blackwell MD [address] [place] [address] ORTHOPAEDIC SURGERY 05/01/19 documented as of this encounter
--- OUTSIDE RECORDS SUMMARY | 2024-04-23 04:26 | XMS_ITS | Encounter Summary ---
Author Organization [facility] Address [address] [place] [address]. 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 No / Unsure 02/21/2020 8:45 AM QUENCHING MACHINE OPERATOR documented as of this encounter [...] st Contact Info) Description 04/25/2024 11:00 AM QUENCHING MACHINE OPERATOR Appointment [facility] [address] [place] [address] Ti Bonilla MD [address] [place] [phone] 05/23/2024 3:30 PM QUENCHING MACHINE OPERATOR Office Visit [facility] [address] [place] [phone] Jyoti Escobar MD [address] [place] [phone] documented as of this encounter Visit Diagnoses Not on filedocumented in this encounter Care Teams Restaurant Recruiter Relationship Specialty Start Date End Date Vernon Mercedes MD [address] [place] [phone] PCP - General FAMILY PRACTICE 10/27/15 12/02/21 [place] [phone] [place] Safety Counselor CARDIOVASCULAR DISEASE 08/19/16 Raul Santana MD [address] [place] [address] CLINICAL CARDIAC ELECTROPHYSIOLOGY 06/16/17 Danny Blackwell MD [address] [place] [address] ORTHOPAEDIC SURGERY 05/01/19 documented as of this encounter
--- OUTSIDE RECORDS SUMMARY | 2024-04-23 04:26 | XMS_ITS | Encounter Summary ---
Author Organization [facility] Address [address] [place] [address]. [place], [place] [address] [place] [address] Care Team Providers Care Steel Engraver Name Role Phone Vernon Mercedes MD Primary Care Provider [phone] Evaristo Allan MD Unavailable UnavailRaul Suresh MD Unavailable Unavailabl Danny Lopes MD Unavailable [phone] Encounter Details Date Type Department Care Team (Latest Contact Info) Description 01/16/2020 2:00 PM CDT - 01/16/2020 11:59 PM CDT Hospital Encounter [facility] [address] [place] [address] Danny Blackwell MD [address] [place] [address] Discharge Disposition: Home or Self [...] 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 4 carbidopa-levodop a 25-100 MG tablet Take 1 tablet by mouth 3 (three) times daily. 01/03/2020 2 famotidine 20 MG tablet Take 2 [...] st Contact Info) Description 04/25/2024 11:00 AM ELECTRONIC CALIBRATION TECHNICIAN Appointment [facility] [address] [place], [place] [address] [address] Ti Bonilla MD [address] [place] [phone] 05/23/2024 3:30 PM ELECTRONIC CALIBRATION TECHNICIAN Office Visit [facility] [address] [place] [address] Jyoti Escobar MD [address] [place] [address] documented as of this encounter Procedures Procedure Name Priority Date/Time Associated Diagnosis Comments XR KNEE STAND AP VANITA ONLY Routine 01/16/2020 2:47 PM CDT Status Post Revision Of Total Replacement Of Right Knee XR KNEE RT 2V Routine 01/16/2020 2:47 PM CDT Status Post Revision Of Total Replacement Of Right Knee documented in this encounter Results * XR KNEE STAND AP VANITA ONLY (01/16/2020 2:47 PM CDT) Anatomical Region Laterality Modality Knee Radiographic Shannan ging 01/16/2020 3:39 PM CDT Impressions 01/16/2020 3:40 PM CDT IMPRESSION:===== Stable appearance of bilateral knee prosthesis on PA views. Interpreted By: Marlon Adams MD, 01/16/2020 3:39 PM Narrative 01/16/2020 3:40 PM CDT Examination: Bilateral weightbearing knees Exam date/time: 01/16/2020 2:47 PM ?? Reason For Exam: ??aftercare ?? Fall with pain Comparison: December 05, 2019 Technique: Standing PA flexion weightbearing views Findings: Bilateral knee prosthesis are seen. ??Position is unchanged on standing PA flexion view. ??No acute fracture seen. ??Femoral and tibial components are in expected position. ===== Procedure Note Marlon Adams MD - 01/16/2020 Examination: Bilateral weightbearing knees Exam date/time: 01/16/2020 2:47 PM Reason For Exam: aftercare Fall with pain Comparison: December 05, 2019 Technique: Standing PA flexion weightbearing views Findings: Bilateral knee prosthesis are seen. Position is unchanged onstanding PA flexion view. No acute fracture seen. Femoral and tibialcomponents are in expected position. ===== IMPRESSION:===== Stable appearance of bilateral knee prosthesis on PA views. Interpreted By: Marlon Adams MD, 01/16/2020 3:39 PM Danny Blackwell MD GENERAL IMAGING Final Result * XR KNEE RT 2V (01/16/2020 2:47 PM CDT) Anatomical Region Laterality Modality Knee Radiographic Shannan ging 01/16/2020 3:37 PM CDT Impressions 01/16/2020 3:40 PM CDT IMPRESSION:===== ?? Stable position of knee prosthesis without acute fracture. Interpreted By: Marlon Adams MD, 01/16/2020 3:37 PM Narrative 01/16/2020 3:40 PM CDT EXAMINATION: Right knee 2 views EXAM DATE/TIME: 01/16/2020 2:47 PM REASON FOR EXAM: ??aftercare ?? Increasing pain, trauma, prior surgery. COMPARISON: December 05, 2019 TECHNIQUE: AP and lateral views of the right knee were obtained. FINDINGS: Knee prosthesis seen in place. ??Position is unchanged from prior study. ??No acute fracture seen. ??Joint effusion about the knee also appears grossly stable from prior study. ??Bones are of anatomic alignment. ===== Procedure Note Marlon Adams MD - 01/16/2020 EXAMINATION: Right knee 2 views EXAM DATE/TIME: 01/16/2020 2:47 PM REASON FOR EXAM: aftercare Increasing pain, trauma, prior surgery. COMPARISON: December 05, 2019 TECHNIQUE: AP and lateral views of the right knee were obtained. FINDINGS: Knee prosthesis seen in place. Position is unchanged from priorstudy. No acute fracture seen. Joint effusion about the knee alsoappears grossly stable from prior study. Bones are of anatomicalignment. ===== IMPRESSION:===== Stable position of knee prosthesis without acute fracture. Interpreted By: Marlon Adams MD, 01/16/2020 3:37 PM Danny Blackwell MD GENERAL IMAGING Final Result documented in this encounter Visit Diagnoses Diagnosis Status post revision of total replacement of right knee documented in this encounter Care Teams Steel Engraver Relationship Specialty Start Date End Date Vernon Mercedes MD [address] [place] [phone] PCP - General FAMILY PRACTICE 10/27/15 12/02/21 Evaristo Allan MD [address] [place] [phone] [place] Tender Head CARDIOVASCULAR DISEASE 08/19/16 Raul Santana MD [address] [place] [address] CLINICAL CARDIAC ELECTROPHYSIOLOGY 06/16/17 Danny Blackwell MD [address] [place] [address] ORTHOPAEDIC SURGERY 05/01/19 documented as of this encounter
--- OUTSIDE RECORDS SUMMARY | 2024-04-23 04:26 | XMS_ITS | Encounter Summary ---
Author Organization [facility] Address [address] [place] [address]. 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 No / Unsure 12/14/2019 2:30 PM CDT documented as of this encounter [...] st Contact Info) Description 04/25/2024 11:00 AM CONCERT PIANIST Appointment [facility] [address] [place] [address] [place] [address] Ti Bonilla MD [address] [place] [phone] 05/23/2024 3:30 PM CONCERT PIANIST Office Visit [facility] [address] [place] [phone] Jyoti Escobar MD [address] [place] [phone] documented as of this encounter Results * (ABNORMAL) COMPREHENSIVE METABOLIC PANEL (12/12/2019 3:30 PM CDT) SODIUM S/P/B 137 136 - 145 MMOL/L [facility] POT[facility]SIUM S/P/B 4.1 3.5 - 5.1 MMOL/L 12/12/2019 4:00 PM [facility] CHLORIDE S/P/B 100 98 - 107 MMOL/L 12/12/2019 4:00 PM [facility] CO2 25.6 21.0 - 32.0 MMOL/L 12/12/2019 4:00 PM [facility] GLUCOSE 186(H) 70 - 99 MG/DL 12/12/2019 4:00 PM [facility] Comment: FASTING GLUCOSE 100 TO 125 MG/DL IS CONSISTENT WITH IMPAIRED FASTING GLUCOSE. FASTING GLUCOSE >125 MG/DL IS CONSISTENT WITH DIABETES. RANDOM GLUCOSE >200 MG/DL WITH HYPERGLYCEMIC SYMPTOMS IS CONSISTENT WITH DIABETES. PER ADA GUIDELINES BUN 17 6 - 24 MG/DL 12/12/2019 4:00 PM [facility] CREATININE S/P/B 1.26 0.70 - 1.30 MG/DL 12/12/2019 4:00 PM [facility] CALCIUM S/P/B 9.4 8.4 - 10.5 MG/DL 12/12/2019 4:00 PM [facility] BILIRUBIN TOTAL S/P/B 0.5 0.2 - 1.0 MG/DL 12/12/2019 4:00 PM [facility] Comment: THIS ASSAY IS NOT RECOMMENDED FOR PATIENTS UNDERGOING TREATMENT WITH ELTROMBOPAG DUE TO THE POTENTIAL FOR FALSELY ELEVATED RESULTS. ALKALINE PHOSPHATASE S/P/B 100 45 - 115 U/L 12/12/2019 4:00 PM [facility] AST 29 15 - 37 U/L 12/12/2019 4:00 PM [facility] ALT 62 16 - 63 U/L 12/12/2019 4:00 PM [facility] TOTAL PROTEIN S/P/B 8.0 6.4 - 8.2 G/DL 12/12/2019 4:00 PM [facility] ALBUMIN S/P/B 3.6 3.4 - 5.0 G/DL 12/12/2019 4:00 PM T [facility] ANION GAP 11.4 5.0 - 15.0 MMOL/L 12/12/2019 4:00 PM CDT [facility] OSMOLALITY (CALC) 290 MOSM/KG 020 4:00 PM CDT [facility] Comment:REFERENCE RANGE NOT ESTABLISHED EGFR NON-AFR. AMER. 62(L) >89 ML/MIN/1. 73 M2 12/12/2019 4:00 PM CDT [facility] EGFR AFR. AMER. 71(L) >89 ML/MIN/1. 73 M2 12/12/2019 4:00 PM CDT [facility] GFR NOTES GFR REFERENCE S: 12/12/2019 4:00 PM CDT [facility] Comment: THE ESTIMATED GFR [...] ml/min/1.73 m2 G5,KIDNEY FAILURE: <15 ml/min/1.73 m2 12/12/2019 3:30 PM CDT Vernon Mercedes MD LABORATORY Final Result [facility] [address] [place] [address], * (ABNORMAL) CBC W/DIFF AUTOMATED (12/12/2019 3:30 PM CDT) WBC 7.4 4.5 - 10.8 x10'3/uL 12/12/2019 3:41 PM CDT [facility] RBC 4.86 4.50 - 6.10 x10'6/uL 12/12/2019 3:41 PM CDT [facility] HGB 13.3 13.0 - 18.0 G/DL 12/12/2019 3:41 PM CDT [facility] HCT 41.4 37.0 - 52.0 % 12/12/2019 3:41 PM CDT [facility] MCV 85.2 78.0 - 100.0 FL 12/12/2019 3:41 PM CDT [facility] MCH 27.4 27.0 - 31.0 PG 12/12/2019 3:41 PM CDT [facility] MCHC 32.1(L) 33.0 - 36.0 G/DL 12/12/2019 3:41 PM CDT [facility] RDW 14.6(H) 11.5 - 14.5 % 12/12/2019 3:41 PM CDT [facility] PLT 420(H) 150 - 350 x10'3/uL 12/12/2019 3:41 PM CDT [facility] MPV 11.5(H) 7.4 - 10.4 FL 12/12/2019 3:41 PM CDT [facility] DIFFERENTIAL COMMENT NORMAL REFERENCE RANGE NOT ESTABLISHED FOR THE PROPORTIONAL LEUKOCYTE DIFFERENTIAL. 12/12/2019 3:41 PM CDT [facility] SEG NEUTROPHILS 55.2 % 0 3:41 PM CDT [facility] LYMPHOCYTES 30.3 % 12/12/2019 3:41 PM CDT [facility] MONOCYTES 11.2 % 12/12/2019 3:41 PM CDT [facility] EOSINOPHILS 1.9 % 12/12/2019 3:41 PM CDT [facility] BASOPHILS 1.1 % 12/12/2019 3:41 PM CDT [facility] IMMATURE GRANS % 0.3 % 12/12/19 20 3:41 PM CDT [facility] NRBC 0.0 % 12/12/2019 3:41 PM CDT [facility] ABS. NEUTROPHILS 4.09 1.60 - 8.30 x10'3/uL 12/12/2019 3:41 PM CDT [facility] ABS. LYMPHOCYTES 2.24 0.80 - 4.70 x10'3/uL 12/12/2019 3:41 PM CDT [facility] ABS. MONOCYTES 0.83 0.00 - 1.50 x10'3/uL 12/12/2019 3:41 PM CDT [facility] ABS. EOSINOPHILS 0.14 0.00 - 0.40 x10'3/uL 12/12/2019 3:41 PM CDT [facility] ABS. BASOPHILS 0.08 0.00 - 0.20 x10'3/uL 12/12/2019 3:41 PM CDT [facility] ABS. IMMATURE GRANULOCYTES 0.02 0.00 - 0.03 x10'3/uL 12/12/2019 3:41 PM CDT [facility] ABS. NUCLEATED RBC'S 0.00 0.00 x10'3/uL 12/12/2019 3:41 PM CDT [facility] 12/12/2019 3:30 PM CDT Vernon Mercedes MD LABORATORY Final Result [facility] [address] [place] [address], documented in this encounter Visit Diagnoses Diagnosis Hypotension- Primary Hypotension, unspecified documented in this encounter Care Teams Marketing Executive Relationship Specialty Start Date End Date [place] [phone] PCP - General FAMILY PRACTICE 10/27/15 12/02/21 [place] [phone] [place] [employer] [place] [place] CARDIOVASCULAR DISEASE 08/19/16 Raul Santana MD [address] [place] [address] CLINICAL CARDIAC ELECTROPHYSIOLOGY 06/16/17 Danny Blackwell MD [address] [place] [id number] ORTHOPAEDIC SURGERY 05/01/19 documented as of this encounter
--- OUTSIDE RECORDS SUMMARY | 2024-04-23 04:26 | XMS_ITS | Encounter Summary ---
Author Organization [facility] Address [address] [place] [address]. [place], [place] [address] [place] [address] Care Team Providers Care Teller Manager Name Role Phone Vernon Mercedes MD Primary Care Provider [phone] Evaristo Allan MD Unavailable Unavailabl e Raul Santana MD Unavailable Unavailabl e Danny Blackwell MD Unavailable [phone] Reason for Visit * Reason Comments Jnt Pain/Knee * Physical Medicine (Routine) - Closed Specialty Diagnoses / Procedures Referred By Charito ledbetter Referred To Contact PHYSICAL THERAPY Diagnoses Prosthetic joint implant failure, subsequent encounter Aftercare following right knee joint replacement surgery Dari Piña FNP-ANDERSON [address] [place] [address] Phone: tel: fax: Referral ID Status Reason Start Date Expiration Date V isits Requested Visits Authorized [id number] Closed Physical Therapy 10/16/2019 11/14/2020 60 60 Encounter Details Date Type Department Care Team (Late st Contact Info) Description 12/14/2019 2:30 PM CDT - 12/14/2019 11:59 PM T Hospital Encounter [facility] [address] [place] [address] Dari Piña FNP-ANDERSON [address] [place] [address] Rossy Cardenas, DPT Jnt Pain/Knee Discharge Disposition: [...] 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 CARDIAC CATHETERIZATION 11/13/2018 ??? FRACTURE SURGERY ??? 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 HERNIA REPAIR ??? KNEE ARTHROPLASTY Bilateral ??? LITHOTRIPSY ??? XA ABLATION 05/19/2016 ??? 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 He reports he has been practicing and noticing an improvement with sit to stands. The patient also states that he will be seeinga neurologist soon for his recent onset of tremors. He also has had medication changes to see if that will reduce his tremors. Location of Pain: R knee Pre-treatment Pain: 04/27 Post-treatment Pain: 10 Restriction/Precaution: WBAT Objective: Treatment Performed: Therapeutic Exercise - 49001 Minutes Performed: 54 minutes Intervention: - Nustep WL2 x6 mins UE/LE - Slant board calf stretch x1 min x2 - Heel raises x20 - Hip abd/ext/flx GTB B x 20 ea - side stepping GTB x 5 laps HELD- 6 step ups fw x20 HELD- 6 step ups lat. x20 HELD - Step stretch 10/10 - HS stretch 30 sec x 3 N - HS curl x 20 on R - Squats x 10 - sit to stand from plinth x 10 HELD- PROM flexion/extension HELD- heelslide with strap x5 mins with IASTM to quad on flexion stretch HELD- DKTC on peanut ball 2x10 HELD- quad set 10 sec x10 HELD- SAQ 5 sec x 20 - SLR x15 HELD- Supine Bridges x 20 - LAQ 3lb 3 x 20 HELD- clamshells x 20 B HELD- Heel prop 5# x5' Manual Therapy - 13778 Minutes Performed: 0' Intervention: HELD- IASTM to R quad Neuromuscular Reeducation - 70797 Minutes Performed: 0 minutes Intervention: - Tandem Balance x1 min anya. x2 - Foam balance NBOS x1 min Therapeutic Activities - 68269 Minutes Performed: Modalities Minutes Performed: 0 Intervention: HELD- gameready to R knee x 15 min Total Treatment Time: 54 minutes Education Performed: Educated patient to continue current HEP and add SLR back into HEP since patient had only been doing LAQ. ASSESSMENT: Note: Patient struggles significantly to maintain quadriceps contraction during SLR. Patient also struggles considerably with sit to stands, therefore performed from elevated surface. He demonstratesposterior lean with sit to stand, but resolved with cues to lean forward prior to standing. PLAN: Plan for next visit: Continue range of motion and strengthening. Continue to practice sit to standssince patient is having significant difficulty with this. Continue SLR to eliminate extensor lag. HEP: heel slide, quad set, HS stretch seated, clamshell, SAQ, SLR, bridge, sit to stands documented in this encounter Plan of Treatment Upcoming Encounters Date Type Department Care Team (Late st Contact Info) Description 04/25/2024 11:00 AM SHELL FREEZING MACHINE OPERATOR Appointment [facility] [address] [place] [address] [place] [address] Ti Bonilla MD [address] [place] [phone] 05/23/2024 3:30 PM SHELL FREEZING MACHINE OPERATOR Office Visit [facility] [address] [place] [address] Jyoti Escobar MD [address] [place] [address] documented as of this encounter Visit Diagnoses Diagnosis Status post revision of total replacement of right knee documented in this encounter Care Teams Teller Manager Relationship Specialty Start Date End Date Vernon Mercedes MD [address] [place] [address] PCP - General FAMILY PRACTICE 10/27/15 12/02/21 Evaristo Allan MD [facility] [place] [address] [place] Ammonium Nitrate Crystallizer CARDIOVASCULAR DISEASE 08/19/16 Raul Santana MD [address] [place] [address] CLINICAL CARDIAC ELECTROPHYSIOLOGY 06/16/17 Danny Blackwell MD [address] [place] [address] ORTHOPAEDIC SURGERY 05/01/19 documented as of this encounter
--- OUTSIDE RECORDS SUMMARY | 2024-04-23 04:26 | XMS_ITS | Encounter Summary ---
Author Organization [facility] Address [address] [place] [address]. 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 No / Unsure 11/28/2019 7:48 AM CDT documented as of this encounter [...] st Contact Info) Description 04/25/2024 11:00 AM BLACK POWDER GLAZING OPERATOR Appointment [facility] [address] [place] [address] Ti Bonilla MD [address] [place] [phone] 05/23/2024 3:30 PM BLACK POWDER GLAZING OPERATOR Office Visit [facility] [address] [place] [phone] Jyoti Escobar MD [address] [place] [phone] documented as of this encounter Visit Diagnoses Not on filedocumented in this encounter Care Teams Home School Teacher Relationship Specialty Start Date End Date Vernon Mercedes MD [address] [place] [phone] PCP - General FAMILY PRACTICE 10/27/15 12/02/21 [place] [address] [place] Informatics Manager CARDIOVASCULAR DISEASE 08/19/16 Raul Santana MD [address] [place] [address] CLINICAL CARDIAC ELECTROPHYSIOLOGY 06/16/17 Danny Blackwell MD [address] [place] [address] ORTHOPAEDIC SURGERY 05/01/19 documented as of this encounter
--- OUTSIDE RECORDS SUMMARY | 2024-04-23 04:26 | XMS_ITS | Encounter Summary ---
Author Organization [facility] Address [address] [place] [address]. [place], [place] [address] [place] [address] Care Team Providers Care Dock Hand Name Role Phone Vernon Mercedes MD Primary Care Provider [phone] Evaritso Allan MD Unavailable UnavailRaul Suresh MD Unavailable Unavailabl Danny Lopes MD Unavailable [phone] Encounter Details Date Type Department Care Team (Late st Contact Info) Description 12/12/2019 3:10 PM CDT - 12/12/2019 11:59 PM CDT Hospital Encounter [facility] [address] [place] [address] Vernon Mercedes MD [address] [place] [address] Discharge Disposition: Home or Self [...] have Coronavirus / COVID-19? No / Unsure 12/12/2019 3:09 PM CDT documented as of this encounter [...] Contact Info) Description 04/25/2024 11:00 AM HIGH WORKER Appointment [facility] [address] [place] [address] [place] [address] Ti Bonilla MD [address] [place] [phone] 05/23/2024 3:30 PM HIGH WORKER Office Visit [facility] [address] [place] [address] Jyoti Escobar MD [address] [place] [address] documented as of this encounter Procedures Procedure Name Priority Date/Time Associated Diagnosis Comments COMPREHENSIVE METABOLIC PANEL Routine 12/12/2019 3:30 PM CDT Hypotension CBC W/DIFF AUTOMATED Routine 12/12/2019 3:30 PM CDT Hypotension documented in this encounter Results * (ABNORMAL) COMPREHENSIVE METABOLIC PANEL (12/12/2019 3:30 PM CDT) SODIUM S/P/B 137 136 - 145 MMOL/L 12/12/2019 4:00 PM CDT [facility] POTASSIUM S/P/B 4.1 3.5 - 5.1 MMOL/L 12/12/2019 4:00 PM CDT [facility] CHLORIDE S/P/B 100 98 - 107 MMOL/L 12/12/2019 4:00 PM CDT [facility] CO2 25.6 21.0 - 32.0 MMOL/L 12/12/2019 4:00 PM CDT [facility] GLUCOSE 186(H) 70 - 99 MG/DL 12/12/2019 4:00 PM CDT [facility] Comment: FASTING GLUCOSE 100 TO 125 MG/DL IS CONSISTENT WITH IMPAIRED FASTING GLUCOSE. FASTING GLUCOSE >125 MG/DL IS CONSISTENT WITH DIABETES. RANDOM GLUCOSE >200 MG/DL WITH HYPERGLYCEMIC SYMPTOMS IS CONSISTENT WITH DIABETES. PER ADA GUIDELINES BUN 17 6 - 24 MG/DL 12/12/2019 4:00 PM CDT [facility] CREATININE S/P/B 1.26 0.70 - 1.30 MG/DL 12/12/2019 4:00 PM CDT [facility] CALCIUM S/P/B 9.4 8.4 - 10.5 MG/DL 12/12/2019 4:00 PM CDT [facility] BILIRUBIN TOTAL S/P/B 0.5 0.2 - 1.0 MG/DL 12/12/2019 4:00 PM CDT [facility] Comment: THIS ASSAY IS NOT RECOMMENDED FOR PATIENTS UNDERGOING TREATMENT WITH ELTROMBOPAG DUE TO THE POTENTIAL FOR FALSELY ELEVATED RESULTS. ALKALINE PHOSPHATASE S/P/B 100 45 - 115 U/L 12/12/2019 4:00 PM CDT [facility] AST 29 15 - 37 U/L 12/12/2019 4:00 PM T [facility] ALT 62 16 - 63 U/L 12/12/2019 4:00 PM T [facility] TOTAL PROTEIN S/P/B 8.0 6.4 - 8.2 G/DL 12/12/2019 4:00 PM T [facility] ALBUMIN S/P/B 3.6 3.4 - 5.0 G/DL 12/12/2019 4:00 PM T [facility] ANION GAP 11.4 5.0 - 15.0 MMOL/L 12/12/2019 4:00 PM T [facility] OSMOLALITY (CALC) 290 MOSM/KG 020 4:00 PM T [facility] Comment:REFERENCE RANGE NOT ESTABLISHED EGFR NON-AFR. AMER. 62(L) >89 ML/MIN/1. 73 M2 12/12/2019 4:00 PM T [facility] EGFR AFR. AMER. 71(L) >89 ML/MIN/1. 73 M2 12/12/2019 4:00 PM T [facility] GFR NOTES GFR REFERENCE S: 12/12/2019 4:00 PM T [facility] Comment: THE ESTIMATED GFR [...] CDT Vernon Mercedes MD LABORATORY Final Result [facility] [address] [place] [address], * (ABNORMAL) CBC W/DIFF AUTOMATED (12/12/2019 3:30 PM CDT) WBC 7.4 4.5 - 10.8 x10'3/uL 12/12/2019 3:41 PM CDT [facility] RBC 4.86 4.50 - 6.10 x10'6/uL 12/12/2019 3:41 PM CDT [facility] HGB 13.3 13.0 - 18.0 G/DL 12/12/2019 3:41 PM CDT [facility] HCT 41.4 37.0 - 52.0 % 12/12/2019 3:41 PM CDT [facility] MCV 85.2 78.0 - 100.0 FL 12/12/2019 3:41 PM CDT [facility] MCH 27.4 27.0 - 31.0 PG 12/12/2019 3:41 PM CDT [facility] MCHC 32.1(L) 33.0 - 36.0 G/DL 12/12/2019 3:41 PM CDT [facility] RDW 14.6(H) 11.5 - 14.5 % 12/12/2019 3:41 PM CDT [facility] PLT 420(H) 150 - 350 x10'3/uL 12/12/2019 3:41 PM CDT [facility] MPV 11.5(H) 7.4 - 10.4 FL 12/12/2019 3:41 PM CDT [facility] DIFFERENTIAL COMMENT NORMAL REFERENCE RANGE NOT ESTABLISHED FOR THE PROPORTIONAL LEUKOCYTE DIFFERENTIAL. 12/12/2019 3:41 PM CDT [facility] SEG NEUTROPHILS 55.2 % 0 3:41 PM CDT [facility] LYMPHOCYTES 30.3 % 12/12/2019 3:41 PM CDT [facility] MONOCYTES 11.2 % 12/12/2019 3:41 PM CDT [facility] EOSINOPHILS 1.9 % 12/12/2019 3:41 PM CDT [facility] BASOPHILS 1.1 % 12/12/2019 3:41 PM CDT [facility] IMMATURE GRANS % 0.3 % 12/12/19 20 3:41 PM CDT [facility] NRBC 0.0 % 12/12/2019 3:41 PM CDT [facility] ABS. NEUTROPHILS 4.09 1.60 - 8.30 x10'3/uL 12/12/2019 3:41 PM CDT [facility] ABS. LYMPHOCYTES 2.24 0.80 - 4.70 x10'3/uL 12/12/2019 3:41 PM CDT [facility] ABS. MONOCYTES 0.83 0.00 - 1.50 x10'3/uL 12/12/2019 3:41 PM CDT [facility] ABS. EOSINOPHILS 0.14 0.00 - 0.40 x10'3/uL 12/12/2019 3:41 PM CDT [facility] ABS. BASOPHILS 0.08 0.00 - 0.20 x10'3/uL 12/12/2019 3:41 PM CDT [facility] ABS. IMMATURE GRANULOCYTES 0.02 0.00 - 0.03 x10'3/uL 12/12/2019 3:41 PM CDT [facility] ABS. NUCLEATED RBC'S 0.00 0.00 x10'3/uL 12/12/2019 3:41 PM CDT [facility] 12/12/2019 3:30 PM CDT Vernon Mercedes MD LABORATORY Final Result [facility] [address] [place] [id number], documented in this encounter Visit Diagnoses Diagnosis Hypotension Hypotension, unspecified documented in this encounter Care Teams Dock Hand Relationship Specialty Start Date End Date Vernon Mercedes MD [address] [place] [address] PCP - General FAMILY PRACTICE 10/27/15 12/02/21 Evaristo Allan MD [address] [place] [address] [place] Heavy Duty Press Operator CARDIOVASCULAR DISEASE 08/19/16 Raul Santana MD [address] [place] [address] CLINICAL CARDIAC ELECTROPHYSIOLOGY 06/16/17 Danny Blackwell MD [address] [place] [address] ORTHOPAEDIC SURGERY 05/01/19 documented as of this encounter
--- OUTSIDE RECORDS SUMMARY | 2024-04-23 04:26 | XMS_ITS | Encounter Summary ---
Author Organization [facility] Address [address] [place] [address]. 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 Not on [...] Contact Info) Description 04/25/2024 11:00 AM PRODUCT DESIGN MANAGER Appointment [facility] [address] [place] [address] Ti Bonilla MD [address] [place] [phone] 05/23/2024 3:30 PM PRODUCT DESIGN MANAGER Office Visit [facility] [address] [place] [phone] Jyoti Escobar MD [address] [place] [phone] documented as of this encounter Visit Diagnoses Not on filedocumented in this encounter Care Teams Business Process Expert Relationship Specialty Start Date End Date Vernon Mercedes MD [address] [place] [phone] PCP - General FAMILY PRACTICE 10/27/15 12/02/21 [place] [address] [place] Sales Representative Trainee CARDIOVASCULAR DISEASE 08/19/16 Raul Santana MD [address] [place] [address] CLINICAL CARDIAC ELECTROPHYSIOLOGY 06/16/17 Danny Blackwell MD [address] [place] [address] ORTHOPAEDIC SURGERY 05/01/19 documented as of this encounter
--- OUTSIDE RECORDS SUMMARY | 2024-04-23 04:26 | XMS_ITS | Encounter Summary ---
Author Organization [facility] Address [address] [place] [address]. [place], [place] [address] [place] [address] Care Team Providers Care Chemistry Technical Officer Name Role Phone Vernon Mercedes MD Primary Care Provider [phone] Evaristo Allan MD Unavailable Unavailabl e Raul Santana MD Unavailable Unavailabl e Danny Blackwell MD Unavailable Reason for Visit * Reason Comments Jnt Pain/Knee * Physical Medicine (Routine) - Closed Specialty Diagnoses / Procedures Referred By Charito ledbetter Referred To Contact PHYSICAL THERAPY Diagnoses Prosthetic joint implant failure, subsequent encounter Aftercare following right knee joint replacement surgery Dari Piña FNP-[facility] [address] [place] [address] Phone: tel: fax: Referral ID Status Reason Start Date Expiration Date V isits Requested Visits Authorized [id number] Closed Physical Therapy 10/16/2019 11/14/2020 60 60 Encounter Details Date Type Department Care Team (Late st Contact Info) Description 11/28/2019 7:45 AM CDT - 11/28/2019 11:59 PM T Hospital Encounter [facility] [address] [place] [address] Dari Piña FNP-ANDERSON [address] [place] [address] Rossy Cardenas, DPT Jnt Pain/Knee Discharge Disposition: [...] 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 CARDIAC CATHETERIZATION 11/13/2018 ??? FRACTURE SURGERY ??? 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 HERNIA REPAIR ??? KNEE ARTHROPLASTY Bilateral ??? LITHOTRIPSY ??? XA ABLATION 05/19/2016 ??? XA CORONARY INTERVENTION 03/24/2018 GRAPE PICKER PCI-mid RCA Subjective: Diagnosis: R TKA Referring Physician: ISAURO Sarah Onset Date: 10/15/19 Treatment Day: 13 Total Approved Visits: 60 Therapy Plan of Care: 3x/wk for 4 wks Subjective Note: Patient reports a 70% improvement since his initial evaluation. He reports that heno longer has pain and improved right knee range of motion. Patient reports that he has noticed an improvement in his ability to walk and climb stairs, which he is doing reciprocally. Patient states that he still has difficulty with achieving the knee flexion range of motion he would like and performing sit to stands. Patient continues to ambulate with walker for community distances. The patient states that he has been able to go camping without any difficulty. Patient is seeing orthopaedist 1 week from today. Location of Pain: R knee Pre-treatment Pain: 0/10 Post-treatment Pain: 0/10 Restriction/Precaution: WBAT Objective: KNEE ROM Left AROM Right P/AROM (11/28/19) Knee extension 110 1/1 Knee flexion 1 106/100 ?? KNEE STRENGTH Left Right (11/28/19) Hip flexor 4+/5 4/5?? Quadricep 5/5 ??4/5 Dorsiflexors 5/5 5/5 Hamstrings 5/5 5/5? Edema: R 37.5 cm; L 36.5 cm Functional Activity Performance Gait: Patient ambulates with step through gait pattern, with L step length and R stance time decreased. He ambulates with significant decreased knee flexion/extension on the R. Sit to Stand: Patient performs with decreased R knee flexion when standing, antalgia, and mild instability. LEFS: 31 Treatment Performed: Therapeutic Exercise - 54138 Minutes Performed: 40 minutes Intervention: - Nustep WL2 x6 mins UE/LE - Slant board calf stretch x1 min x2 - Heel raises/df x20 each - Hip abd/ext/flx RTB B x 20 ea (INITIATED BAND) - 6 step ups fw x20 - 6 step ups lat. x20 - Step stretch 10/10 HELD - Squats x 15 HELD - re evaluation - PROM flexion/extension - heelslide with strap x5 mins with IASTM to quad on flexion stretch (just heelslide today) HELD- DKTC on peanut ball 2x10 HELD- quad set 10 sec x10 HELD- SAQ 5 sec x 20 HELD- SLR x15 (INCRSD REPS) - Supine Bridges x 20 HELD HELD- clamshells x 20 B - Heel prop 5# x5' HELD Manual Therapy - 64865 Minutes Performed: 0' Intervention: HELD- IASTM to R quad Neuromuscular Reeducation - 07061 Minutes Performed: Intervention: - Tandem Balance x1 min anya. Therapeutic Activities - 63518 Minutes Performed: Modalities Minutes Performed: 15' Intervention: - gameready to R knee x 15 min Total Treatment Time: 55 minutes Education Performed: Pt educated to continue current HEP. GOALS: Pt will [...] has been seen for a total of 13 physical therapy visits post R TKA revision. He has seen improvements in range of motion, strength, pain reduction, and edema reduction. He is still lacking quite a bit of knee flexion P/AROM and some extension range. The patient still has functional quadricep weakness indicated by intermittent posterior movement/buckling with single limb activities and gait. Therefore, based on this weakness I have instructed to ambulate in the community with a walker until he is a able to get a cane. He should not walk without a device at this time. The patient willbenefit from continued physical therapy services at this time to continue to improve range of motion and strength to assist patient in functional activity performance. PLAN: Plan for next visit: Continue 3x/wk for 4 more weeks. HEP: heel slide, quad set, HS stretch seated, clamshell, SAQ, SLR, bridge Cosigned by ISAURO Rodriguez at 11/28/2019 10:47 AM CDT documented in this encounter Plan of Treatment Upcoming Encounters Date Type Department Care Team (Late st Contact Info) Description 04/25/2024 11:00 AM NURSE INFECTION CONTROL Appointment [facility] [place] [address] Ti Bonilla MD [address] [place] [phone] 05/23/2024 3:30 PM NURSE INFECTION CONTROL Office Visit [facility] [address] [place] [address] Jyoti Escobar MD [address] [place] [address] documented as of this encounter Visit Diagnoses Diagnosis Status post revision of total replacement of right knee documented in this encounter Care Teams Chemistry Technical Officer Relationship Specialty Start Date End Date Vernon Mercedes MD [address] [place] [phone] PCP - General FAMILY PRACTICE 10/27/15 12/02/21 Evaristo Allan MD [address] [place] [address] [place] Bale Breaker Operator CARDIOVASCULAR DISEASE 08/19/16 Raul Santana MD [address] [place] [address] CLINICAL CARDIAC ELECTROPHYSIOLOGY 06/16/17 Danny Blackwell MD [address] [place] [address] ORTHOPAEDIC SURGERY 05/01/19 documented as of this encounter
--- OUTSIDE RECORDS SUMMARY | 2024-04-23 04:26 | XMS_ITS | Encounter Summary ---
Author Organization [facility] Address [address] [place] [address]. [place], [place] [address] [place] [address] Care Team Providers Care Inspector Weights And Measures Name Role Phone Vernon Mercedes MD Primary Care Provider [phone] Evaristo Allan MD Unavailable UnavailRaul Suresh MD Unavailable Unavailabl e Danny Blackwell MD Unavailable [phone] Reason for Visit * Reason Comments Postop Followup Revision right total knee arthroplasty DOS:10/15/2019 Encounter Details Date Type Department Care Team (Latest Contact Info) Description 12/05/2019 3:30 PM CDT Office Visit [address] [address] Danny Blackwell MD [address] [place] [address] Postop Followup (Revision right total knee arthroplasty DOS:10/15/2019) Social History Tobacco Use Types Packs/Day Years [...] 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 No / Unsure 12/05/2019 2:31 PM CDT documented as of this encounter Last Filed Vital Signs Vital Sign Reading Time Taken Comments Blood Pressure - - Pulse - - Temperature - - Respiratory Rate - - Oxygen Saturation - - Inhaled Oxygen Concentration - - Weight 114.3 kg (252 lb) 12/05/2019 3:53 PM CDT Height 177.8 cm (5' 10 ) 12/05/2019 3:53 PM CDT Body Mass Index 36.16 12/05/2019 3:53 PM CDT documented in this encounter Functional [...] documented in this encounter Progress Notes * Danny Blackwell MD - 12/05/2019 3:30 PM CDT Chief Complaint: Postop Followup (Revision right total knee arthroplasty DOS:10/15/2019) History of Present Illness: Evaristo Zelaya is a 59-year-old male who presents to the office for Postop Followup (Revision right total knee arthroplasty DOS:10/15/2019) Patient states that his RIGHT knee continues to improve. He states that he has been attending physical therapy. He states that his range of motion is improved from his last visit but he continues to struggle with strength. He denies pain in his RIGHT knee but states that he will take pain medication prior to therapy. He currently walks with the assistance of a cane. ROS: See HPI for pertinent positives Problem List: Patient Active Problem List Diagnosis ??? Essential hypertension ??? Paroxysmal atrial fibrillation (CMS/HCC) ??? skilled nursing current use of anticoagulant therapy ??? Obstructive sleep apnea ??? Hyperlipidemia ??? Diabetes (CMS/HCC) ??? Coronary artery disease ??? 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 Cardiovascular stress test abnormal ??? Arthritis of knee ??? Derangement of medial meniscus, left ??? Encounter for follow-up examination after completed treatment for conditions other than malignant neoplasm ??? Heartburn ??? Knee pain ??? Mechanical complication of internal orthopedic device, implant or graft, initial encounter ([facility]) ??? Patella-femoral syndrome ??? Pes anserine bursitis ??? Recurrent ventral incisional hernia ??? Abdominal pain ??? Failure of total knee replacement, initial encounter ([facility]) ??? S/P coronary artery stent placement ??? 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 Status post revision of total replacement of right knee History: Past Medical History: Diagnosis Date ??? Abnormal [...] CATHETERIZATION 01/04/2018 occluded prox RCA w/well developed emzd-pr-mzcaw collaterals lvef 55-60% ??? CARDIAC CATHETERIZATION 11/13/2018 ??? FRACTURE SURGERY ??? 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 HERNIA REPAIR ??? KNEE ARTHROPLASTY Bilateral ??? LITHOTRIPSY ??? XA ABLATION 05/19/2016 ??? XA CORONARY INTERVENTION 03/24/2018 AEROBICS INSTRUCTOR PCI-mid RCA Family History Problem Relation Name Age of Onset ??? Hypertension Mother ??? Hypertension Sister ??? Cancer Brother ??? Diabetes Brother ??? Other (PVD) Brother ??? Hypertension Sister ??? No Known Problems Father Family Status Relation Name Status ??? Mother Alive ??? Sister Alive ??? Brother Alive ??? Brother ??? Sister Alive ??? Father cancer Social History Socioeconomic History ??? Marital status: Spouse name: Not on file ??? Number of children: 1 ??? Years of education: Not on file ??? Highest education level: Not on file Occupational History ??? 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 Financial resource strain: Not on file ??? Food insecurity: Worry: Not on file Inability: Not on file ??? Transportation needs: Medical: Not on file Non-medical: Not on file Tobacco Use ??? Smoking status: Never Smoker ??? Smokeless tobacco: Never Used Substance and Sexual Activity ??? Alcohol use: Yes Comment: social ??? Drug use: No ??? Sexual activity: Not on file Lifestyle ??? Physical activity: Days per week: Not on file Minutes per session: Not on file ??? Stress: Not on file Relationships ??? Social connections: Talks on phone: Not on file Gets together: Not on file Attends gnosticist service: Not on file Active member of club or organization: Not on file Attends meetings of clubs or organizations: Not on file Relationship status: Not on file ??? Intimate partner violence: Fear of current or ex partner: Not on file Emotionally abused: Not on file Physically abused: Not on file Forced sexual activity: Not on file Other Topics Concern ??? Exercise Yes Comment: walking ??? Special Diet No ??? Caffeine Concern Yes Social History Narrative ??? Not on file Medications: Current Outpatient Medications: ??? amitriptyline 50 MG tablet, Take 50 mg by mouth nightly at bedtime., Disp: , Rfl: ??? aspirin EC 81 MG tablet, Take 1 tablet (81 mg total) by mouth 2 (two) times daily with meals. Take twice a day for 2 weeks then may resume home dose of 81mg, Disp: 100 tablet, Rfl: 0 ??? atorvastatin 40 MG tablet, Take 40 mg by mouth nightly at bedtime. , Disp: , Rfl: ??? famotidine 20 MG tablet, Take 2 tablets by mouth 2 (two) times a day., Disp: , Rfl: ??? furosemide 20 MG tablet, Take 20 mg by mouth daily. , Disp: , Rfl: ??? gabapentin 300 MG capsule, Take 300 mg by mouth 3 (three) times daily. , Disp: , Rfl: ??? isosorbide mononitrate ER 30 MG 24 hr tablet, Take 1 tablet (30 mg total) by mouth daily., Disp: 30 tablet, Rfl: 7 ??? LEVEMIR 100 UNIT/ML injection, Inject 32 Units into the skin nightly at bedtime. , Disp: , Rfl: ??? metFORMIN 850 MG tablet, Take 850 mg by mouth 3 (three) times a day. , Disp: , Rfl: ??? metoprolol succinate ER 50 MG 24 hr tablet, Take 50 mg by mouth daily., Disp: , Rfl: ??? nitroglycerin 0.4 MG SL tablet, Place 1 tablet (0.4 mg total) under the tongue every 5 (five) minutes as needed for Chest Pain., Disp: 25 tablet, Rfl: 1 ??? NOVOLOG FLEXPEN 100 UNIT/ML injection (PEN), Inject 32 Units as directed 3 (three) times daily before meals. , Disp: , Rfl: ??? oxyCODONE-acetaminophen 5-325 MG tablet, Take 1 tablet by mouth every 4 (four) hours as needed for Pain. Indications: Chronic Pain, Disp: 30 tablet, Rfl: 0 ??? PRADAXA 150 MG Cap, TAKE ONE CAPSULE BY MOUTH TWICE A DAY, Disp: 60 capsule, Rfl: 11 ??? spironolactone 25 MG tablet, Take 25 mg by mouth daily., Disp: , Rfl: ??? tamsulosin 0.4 MG Cap, Take 0.4 mg by mouth daily., Disp: , Rfl: ??? traMADol 50 MG tablet, Take 1 tablet by mouth 2 (two) times a day., Disp: , Rfl: Allergies Allergen Reactions ??? Doxycycline Other (see comment) Blisters in the mouth ? ? Tetracyclines & Related Other (see comment) Blisters in the mouth Objective: Body mass index is 36.16 kg/m??. Last Recorded Weight 12/05/19 1553 Weight: 114.3 kg (252 lb) Physical exam: Constitutional: Alert and in no acute distress. Neurological: The patient was oriented to person, place, and time. Eyes: The sclera and conjunctiva were normal ENT: Hearing was normal. Neck: The appearance of the neck was normal. Cardiovascular: Normal pulses. Pulmonary: No respiratory distress. Skin: No injuries or skin lesion. Musculoskeletal: Patient is doing well with a small effusion but no erythema or significant warmth involving the right knee. His range of motion is 0 to about 100 degrees. He is using a cane for balance Results: X-ray demonstrates no change in positioning of his right knee revision components Assessment: Encounter Diagnose(s) ICD-10-CM ICD-9-CM SNOMED CT(R) 1. Status post revision of total replacement of right knee Z96.651 V43.65 HISTORY OF REVISION OF RIGHT TOTAL KNEE ARTHROPLASTY Plan: Patient will continue with physical therapy and is seeing progressive improvement in activity and strength. He will return in 6 weeks Follow up: Return in about 6 weeks (around 01/16/2020). DANNY BLACKWELL MD documented in this encounter Plan of Treatment Upcoming Encounters Date Type Department Care Team (Late st Contact Info) Description 04/25/2024 11:00 AM AD COMPOSITOR Appointment [facility] [address] [place] [address] Ti Bonilla MD [address] [place] [phone] 05/23/2024 3:30 PM AD COMPOSITOR Office Visit [facility] [address] [place] [address] Jyoti Escobar MD [address] [place] [address] documented as of this encounter Visit Diagnoses Diagnosis Status post revision of total replacement of right knee- Primary documented in this encounter Care Teams Inspector Weights And Measures Relationship Specialty Start Date End Date Vernon Mercedes MD [facility] [place] [address] PCP - General FAMILY PRACTICE 10/27/15 12/02/21 Evaristo Allan MD [address] [place] [phone] [place] Snowboarding Instructor CARDIOVASCULAR DISEASE 08/19/16 Raul Santana MD [address] [place] [address] CLINICAL CARDIAC ELECTROPHYSIOLOGY 06/16/17 Danny Blackwell MD [address] [facility] [place] [address] ORTHOPAEDIC SURGERY 05/01/19 documented as of this encounter
--- OUTSIDE RECORDS SUMMARY | 2024-04-23 04:26 | XMS_ITS | Encounter Summary ---
Author Organization [facility] Address [address] [place] [address]. 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 Not on [...] Contact Info) Description 04/25/2024 11:00 AM AUDIO PRODUCTION INSTRUCTOR Appointment [facility] [place] [address] Ti Bonilla MD [address] [place] [phone] 05/23/2024 3:30 PM AUDIO PRODUCTION INSTRUCTOR Office Visit [facility] [address] [place] [address] Jyoti Escobar MD [address] [place] [address] documented as of this encounter Procedures Procedure Name Priority Date/Time Associated Diagnosis Comments ELECTROCARDIOGRAM (NON MIDMARK ACQUIRED) Routine 02/21/2020 8:57 AM AUDIO PRODUCTION INSTRUCTOR Paroxysmal atrial fibrillation ([facility]) documented in this encounter Results * ELECTROCARDIOGRAM (NON MIDMARK ACQUIRED) (02/21/2020 8:57 AM AUDIO PRODUCTION INSTRUCTOR) 02/21/2020 8:57 AM AUDIO PRODUCTION INSTRUCTOR Narrative [facility] - 02/27/2020 2:07 PM AUDIO PRODUCTION INSTRUCTOR ? [facility], [facility] ?[address] [place], [place] ??[address] ? Test Date: ?2020-02-21 Pat Name: ? ELZA MCKEON ? Department: ? Room: ? Gender: ? Male ? Photonics Technician: ?? : ?1960 ? Requested By: ELZA ALLAN Order Number: [id number] ?Reading MD: ?? [facility] ? Measurements Intervals ?Matthews ? Rate: ? 100 ?P: ?43 AR: ? 156 ?QRS: ?39 QRSD: ? 112 ?T: ?8 QT: ? 353 ? QTc: ?456 ? Interpretive Statements SINUS TACHYCARDIA INCOMPLETE RIGHT BUNDLE BRANCH BLOCK ABNORMAL RHYTHM ECG O PRODUCTION INSTRUCTOR Procedure Note Matthew Colunga MD - 02/27/2020 [facility], [place] [address] [place] [address] Test Date: 2020-02-21 Pat Name: [facility] Department: Room: Gender: Male Photonics Technician: : 1960 Requested By: ELZA ALLAN Order Number: [id number] Jose Antonio MD: Matthew Colunga Measurements Intervals Matthews Rate: 100 P: 43 AR: 156 QRS: 39 QRSD: 112 T: 8 QT: 353 QTc: 456 Interpretive Statements SINUS TACHYCARDIA INCOMPLETE RIGHT BUNDLE BRANCH BLOCK ABNORMAL RHYTHM ECG O PRODUCTION INSTRUCTOR Elza Allan MD PROCEDURES-ORDERABLE NO LENO RGE Final Result Performing Organization Address City/State/[facility] Co de Phone Number [facility] documented in this encounter Visit Diagnoses Diagnosis Paroxysmal atrial fibrillation (CMS/HCC HHS/HCC)- Primary Atrial fibrillation documented in this encounter Care Teams Karate Instructor Relationship Specialty Start Date End Date Vernon Mercedes MD [address] [place] [address] PCP - General FAMILY PRACTICE 10/27/15 12/02/21 [place] [address] [place] Stopperer Assembler CARDIOVASCULAR DISEASE 08/19/16 Raul Santana MD [address] [place] [address] CLINICAL CARDIAC ELECTROPHYSIOLOGY 06/16/17 Danny Blackwell MD [address] [place] [address] ORTHOPAEDIC SURGERY 05/01/19 documented as of this encounter
--- OUTSIDE RECORDS SUMMARY | 2024-04-23 04:26 | XMS_ITS | Encounter Summary ---
Author Organization [facility] Address [address] [place] [address]. 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 No / Unsure 12/03/2019 2:28 PM CDT documented as of this encounter [...] st Contact Info) Description 04/25/2024 11:00 AM INTERACTIVE GRAPHIC DESIGNER Appointment [facility] [address] [place] [address] Ti Bonilla MD [address] [place] [phone] 05/23/2024 3:30 PM INTERACTIVE GRAPHIC DESIGNER Office Visit [facility] [address] [place] [phone] Jyoti Escobar MD [address] [place] [address] documented as of this encounter Visit Diagnoses Not on filedocumented in this encounter Care Teams Physician Specialist Relationship Specialty Start Date End Date Vernon Mercedes MD [address] [place] [phone] PCP - General FAMILY PRACTICE 10/27/15 12/02/21 [place] [address] [place] Photographer Helper CARDIOVASCULAR DISEASE 08/19/16 Raul Santana MD [address] [place] [address] CLINICAL CARDIAC ELECTROPHYSIOLOGY 06/16/17 Danny Blackwell MD [address] [place] [address] ORTHOPAEDIC SURGERY 05/01/19 documented as of this encounter
--- OUTSIDE RECORDS SUMMARY | 2024-04-23 04:26 | XMS_ITS | Encounter Summary ---
Author Organization [facility] Address [address] [place] [address]. 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 Not on [...] st Contact Info) Description 04/25/2024 11:00 AM FORMULA ROOM WORKER Appointment [facility] [address] [place] [address] Ti Bonilla MD [address] [place] [phone] 05/23/2024 3:30 PM FORMULA ROOM WORKER Office Visit [facility] [address] [place] [phone] Jyoti Escobar MD [address] [place] [address] documented as of this encounter Visit Diagnoses Not on filedocumented in this encounter Care Teams Tire Worker Relationship Specialty Start Date End Date Vernon Mercedes MD [address] [place] [phone] PCP - General FAMILY PRACTICE 10/27/15 12/02/21 [place] [address] Hendrix Classification Inspector CARDIOVASCULAR DISEASE 08/19/16 Raul Santana MD [address] [place] [address] CLINICAL CARDIAC ELECTROPHYSIOLOGY 06/16/17 Danny Blackwell MD [address] [place] [address] ORTHOPAEDIC SURGERY 05/01/19 documented as of this encounter
--- OUTSIDE RECORDS SUMMARY | 2024-04-23 04:26 | XMS_ITS | Encounter Summary ---
Author Organization [facility] Address [address] [place] [address]. [place], [place] [address] [place] [address] Care Team Providers Care Freight Car Cleaner Name Role Phone Vernon Mercedes MD Primary Care Provider [phone] Evaristo Allan MD Unavailable UnavailRaul Suresh MD Unavailable Unavailabl Danny Lopes MD Unavailable [phone] Encounter Details Date Type Department Care Team (Latest Contact Info) Description 12/05/2019 3:10 PM CDT - 12/05/2019 11:59 PM CDT Hospital Encounter [facility] [place] [facility] [address] [place] [address] Danny Blackwell MD [address] [place] [address] Discharge Disposition: Home or Self [...] st Contact Info) Description 04/25/2024 11:00 AM DELIVERY ARCHITECT Appointment [facility] [place] [address] Ti Bonilla MD [address] [place] [phone] 05/23/2024 3:30 PM DELIVERY ARCHITECT Office Visit [facility] [address] [place] [address] Jyoti Escobar MD [address] [place] [phone] documented as of this encounter Procedures Procedure Name Priority Date/Time Associated Diagnosis Comments XR KNEE STAND AP VANITA ONLY Routine 12/05/2019 3:26 PM CDT Status Post Revision Of Total Replacement Of Right Knee XR KNEE RT 2V Routine 12/05/2019 3:26 PM CDT Status Post Revision Of Total Replacement Of Right Knee documented in this encounter Results * XR KNEE RT [...] malalignment or acute bony abnormalities. Procedure Note Tmi Huerta MD - 12/05/2019 Examination: XR KNEE [...] By: Tim Huerta MD, 12/05/2019 6:42 PM us Danny Blackwell MD GENERAL IMAGING Final Result [...] By: Tim Huerta MD, 12/05/2019 6:42 PM us Danny Blackwell MD GENERAL IMAGING Final Result documented in this encounter Visit Diagnoses Diagnosis Status post revision of total replacement of right knee documented in this encounter Care Teams Freight Car Cleaner Relationship Specialty Start Date End Date Vernon Mercedes MD [address] [place] [address] PCP - General FAMILY PRACTICE 10/27/15 12/02/21 Evaristo Allan MD [address] [place] [address] Big Arm Sales Project Administrator CARDIOVASCULAR DISEASE 08/19/16 Raul Santana MD [address] [place] [address] CLINICAL CARDIAC ELECTROPHYSIOLOGY 06/16/17 Danny Blackwell MD [address] [place] [address] ORTHOPAEDIC SURGERY 05/01/19 documented as of this encounter
--- OUTSIDE RECORDS SUMMARY | 2024-04-23 04:26 | XMS_ITS | Encounter Summary ---
Author Organization [facility] Address [address] [place] [address]. [place] [address] [place] [address] Care Team Providers Care Board Operator Name Role Phone Vernon Mercedes MD Primary Care Provider [phone] Evaristo Allan MD Unavailable Unavailabl Raul Duran MD Unavailable Unavailabl Danny Lopes MD Unavailable [phone] Gayle Arce APRN, MACHINE SCALLOP CUTTER-C Unavailable [phone] Reason for Visit * Reason Onset Date Comments Blood Pressure 02/29/2020 Encounter Details Date Type Department Care Team ([facility] [address] Contact Info) Description 02/29/2020 Telephone [facility] [address] [place] [address] Gayle Arce APRN, MACHINE SCALLOP CUTTER-C [address] [facility] [address] [place] [address] Blood Pressure Social History Tobacco Use Types Packs/Day Years [...] 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 No / Unsure 02/21/2020 8:45 AM CONCERT PROMOTER documented as of this encounter Functional Status [...] documented in this encounter Progress Notes * Angela Clay RN - 03/03/2020 10:11 AM CST Attempted to reach pt again. LMTC back. ERT PROMOTER * Angela Clay RN - 02/29/2020 11:27 AM CST Returned pt's call to discuss. Has pt developed issues with chest pain since decreasing Imdur? If not, can d/c Imdur and call with BP update in 1 week. LMTC back. ERT PROMOTER ERT PROMOTER * Ronel Pierre - 02/29/2020 8:50 AM CST TELE-NURSE VOICEMAIL Retrieved voicemail message dated 02/28/2020 at 2:12 pm. Patient contacted office re: blood pressure that keeps getting lower. It is running 90/50. Please return call to [phone]. ERT PROMOTER documented in this encounter Plan of Treatment Upcoming Encounters Date Type Department Care Team (Late st Contact Info) Description 04/25/2024 11:00 AM CONCERT PROMOTER Appointment [facility] [address] [place] [address] Ti Bonilla MD [address] [place] [phone] 05/23/2024 3:30 PM CONCERT PROMOTER Office Visit [facility] [address] [place] [address] Jyoti Escobar MD [address] [place] [address] [phone] documented as of this encounter Visit Diagnoses Not on filedocumented in this encounter Care Teams Board Operator Relationship Specialty Start Date End Date Vernon Mercedes MD [address] [place] [phone] PCP - General FAMILY PRACTICE 10/27/15 12/02/21 Evaristo Allan MD [address] [place] [address] [place] Life Skills Educator CARDIOVASCULAR DISEASE 08/19/16 Raul Santana MD [address] [place] [address] CLINICAL CARDIAC ELECTROPHYSIOLOGY 06/16/17 Danny Blackwell MD [address] [place] [address] ORTHOPAEDIC SURGERY 05/01/19 Gayle Arce, BARBARA, MACHINE SCALLOP CUTTER-C [address] [phone] NURSE PRACTITIONER 03/03/20 documented as of this encounter
--- OUTSIDE RECORDS SUMMARY | 2024-04-23 04:26 | XMS_ITS | Encounter Summary ---
Author Organization [facility] Address [address] [place] [address]. 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 No / Unsure 2020 12:57 PM CDT documented as of this encounter [...] st Contact Info) Description 04/25/2024 11:00 AM CEMETERY COUNSELOR Appointment [facility] [address] [place] [address] Ti Bonilla MD [address] [place] [phone] 05/23/2024 3:30 PM CEMETERY COUNSELOR Office Visit [facility] [address] [place] [phone] Jyoti Escobar MD [address] [place] [phone] documented as of this encounter Visit Diagnoses Not on filedocumented in this encounter Care Teams Apprentice Painter Brush Relationship Specialty Start Date End Date Vernon Mercedes MD [address] [place] [phone] PCP - General FAMILY PRACTICE 10/27/15 12/02/21 [place] [address] [place] Pipe Wrapping Machine Operator CARDIOVASCULAR DISEASE 08/19/16 Raul Santana MD [address] [place] [address] CLINICAL CARDIAC ELECTROPHYSIOLOGY 06/16/17 Danny Blackwell MD [address] [place] [address] ORTHOPAEDIC SURGERY 05/01/19 documented as of this encounter
--- OUTSIDE RECORDS SUMMARY | 2024-04-23 04:26 | XMS_ITS | Encounter Summary ---
Author Organization [facility] Address [address] [place] [address]. [place], [place] [address] [place] [address] Care Team Providers Care Paste Maker Name Role Phone Vernon Mercedes MD Primary Care Provider [phone] Evaristo Allan MD Unavailable Unavailabl e Raul Santana MD Unavailable Unavailabl e Danny Blackwell MD Unavailable [phone] Reason for Visit * Reason Comments Jnt Pain/Knee * Physical Medicine (Routine) - Closed Specialty Diagnoses / Procedures Referred By Charito ledbetter Referred To Contact PHYSICAL THERAPY Diagnoses Prosthetic joint implant failure, subsequent encounter Aftercare following right knee joint replacement surgery Dari Piña FNP-[facility]ERSON [address] [place] [address] Phone: tel: fax: Referral ID Status Reason Start Date Expiration Date V isits Requested Visits Authorized [id number] Closed Physical Therapy 10/16/2019 11/14/2020 60 60 Encounter Details Date Type Department Care Team (Late st Contact Info) Description 12/07/2019 9:45 AM CDT - 12/07/2019 11:59 PM T Hospital Encounter [facility] [address] [place] [address] Dari Piña FNP-ANDERSON [address] [place] [address] Rossy Cardenas, DPT Jnt Pain/Knee Discharge Disposition: [...] 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 No / Unsure 12/07/2019 9:51 AM CDT documented as of this encounter [...] this encounter Progress Notes * Rossy Cardenas, DANIELET - 12/07/2019 9:59 AM CDT [facility] PHYSICAL THERAPY TREATMENT NOTE Time In: 949 Time Out: 1050 Total Time:60 minutes Name: Evaristo Zelaya : 1960 Past [...] CATHETERIZATION 01/04/2018 occluded prox RCA w/well developed mspl-rn-[id number] collaterals lvef 55-60% ??? CARDIAC CATHETERIZATION 11/13/2018 ??? FRACTURE SURGERY ??? 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 HERNIA REPAIR ??? KNEE ARTHROPLASTY Bilateral ??? LITHOTRIPSY ??? XA ABLATION 05/19/2016 ??? XA CORONARY INTERVENTION 03/24/2018 APARTMENT LEASING SPECIALIST PCI-mid RCA Subjective: Diagnosis: R TKA Referring Physician: ISAURO Sarah Onset Date: 10/15/19 Treatment Day: Total Approved Visits: 60 Therapy Plan of Care: 3x/wk for 4 wks Subjective Note: Patient reports mild pain upon arrival to therapy. He has not started driving yet.Patient reports that he had an almost fall last Tuesday secondary to loss of balance because he has been getting dizzy and having tremors. This has been going on for ~[address] Mercedes is aware. Location of Pain: R knee Pre-treatment Pain: 1/10 Post-treatment Pain: 0/10 Restriction/Precaution: WBAT Objective: Treatment Performed: Therapeutic Exercise - 64245 Minutes Performed: 43 minutes Intervention: - Nustep WL2 x6 mins UE/LE - Slant board calf stretch x1 min x2 - Heel raises x20 - Hip abd/ext/flx GTB B x 20 ea (incrsd band) N - side stepping GTB x 5 laps - 6 step ups fw x20 HELD - 6 step ups lat. x20 HELD - Step stretch 10/10 N - HS stretch 30 sec x 3 - Squats x 15 N - sit to stand x 10 HELD- PROM flexion/extension HELD- heelslide with strap x5 mins with IASTM to quad on flexion stretch HELD- DKTC on peanut ball 2x10 HELD- quad set 10 sec x10 HELD- SAQ 5 sec x 20 HELD- SLR x15 HELD- Supine Bridges x 20 N - LAQ 1lb 3 x 20 HELD- clamshells x 20 B HELD- Heel prop 5# x5' Manual Therapy - 93461 Minutes Performed: 0' Intervention: HELD- IASTM to R quad Neuromuscular Reeducation - 09319 Minutes Performed: 0 minutes Intervention: - Tandem Balance x1 min anya. x2 - Foam balance NBOS x1 min Therapeutic Activities - 20403 Minutes Performed: Modalities Minutes Performed: 15' Intervention: - gameready to R knee x 15 min Total Treatment Time: 57 minutes Education Performed: Educated patient to continue current HEP with addition of sit to stands. ASSESSMENT: Patient requires cueing for proper form during theraband hip exercises, which improved his performance. Patient very hesitant in initiation of gait and seems somewhat unsteady. If this does not improve I believe patient shoulder return to walker. Patient shows significant difficulty with sit to stands, requiring much cueing for gluteal activation, anterior translation, and decreased ER. PLAN: Plan for next visit: Continue range of motion and strengthening. Continue to practice sit to standssince patient is having significant difficulty with this. HEP: heel slide, quad set, HS stretch seated, clamshell, SAQ, SLR, bridge, sit to stands documented in this encounter Plan of Treatment Upcoming Encounters Date Type Department Care Team (Late st Contact Info) Description 04/25/2024 11:00 AM LEAD BLENDER Appointment [facility] [place] [address] Ti Bonilla MD [address] [place] [phone] 05/23/2024 3:30 PM LEAD BLENDER Office Visit [facility] [address] [place] [phone] Jyoti Escobar MD [address] [place] [address] documented as of this encounter Visit Diagnoses Diagnosis Status post revision of total replacement of right knee documented in this encounter Care Teams Paste Maker Relationship Specialty Start Date End Date Vernon Mercedes MD [address] [place] [address] PCP - General FAMILY PRACTICE 10/27/15 12/02/21 Evaristo Allan MD [address] [place] [address] [place] [employer] Personnel CARDIOVASCULAR DISEASE 08/19/16 Raul Santana MD [address] [place] [address] CLINICAL CARDIAC ELECTROPHYSIOLOGY 06/16/17 Danny Blackwell MD [address] [place] [address] ORTHOPAEDIC SURGERY 05/01/19 documented as of this encounter
--- OUTSIDE RECORDS SUMMARY | 2024-04-23 04:26 | XMS_ITS | Encounter Summary ---
Author Organization [facility] Address [address] [place] [address]. 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 Would like to discuss if he is in the donut hole or if his insurance truly isn't covering Pradaxa anymore. Other options would be Eliquis vs Xarelto vs warfarin. * Angela Clay RN - 01/21/2020 12:56 PM CDT Routing to Myah Handley NP and Dr. Santana's nurse to address. * Su Clay - 01/21/2020 12:20 PM CDT Pt called. He received a letter stating his insurance will no longer cover Pradaxa after this month. Is there another medication? Please call back. documented in this encounter Plan of Treatment Upcoming Encounters Date Type Department Care Team (Late st Contact Info) Description 04/25/2024 11:00 AM NETWORK COMMUNICATIONS ENGINEER Appointment [facility] [address] [place] [address] Ti Bonilla MD [address] [place] [phone] 05/23/2024 3:30 PM NETWORK COMMUNICATIONS ENGINEER Office Visit [facility] [address] [place] [address] Jyoti Escobar MD [address] [place] [address] documented as of this encounter Visit Diagnoses Not on filedocumented in this encounter Care Teams Street Supervisor Relationship Specialty Start Date End Date Vernon Mercedes MD [address] [place] [phone] PCP - General FAMILY PRACTICE 10/27/15 12/02/21 Evaristo Allan MD [address] [place] [address] [facility] CARDIOVASCULAR DISEASE 08/19/16 Raul Santana MD [address] [place] [address] CLINICAL CARDIAC ELECTROPHYSIOLOGY 06/16/17 Danny Blackwell MD [address] [place] [address] ORTHOPAEDIC SURGERY 05/01/19 documented as of this encounter
--- OUTSIDE RECORDS SUMMARY | 2024-04-23 04:26 | XMS_ITS | Encounter Summary ---
Author Organization [facility] Address [address] [place] [address]. 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 No / Unsure 12/21/2019 10:13 AM CDT documented as of this encounter [...] Contact Info) Description 04/25/2024 11:00 AM ASSISTANT SALES CENTER MANAGER Appointment [facility] [address] [place] [address] Ti Bonilla MD [address] [place] [phone] 05/23/2024 3:30 PM ASSISTANT SALES CENTER MANAGER Office Visit [facility] [address] [place] [phone] Jyoti Escobar MD [address] [place] [address] documented as of this encounter Visit Diagnoses Not on filedocumented in this encounter Care Teams Agriculture Department Chair Relationship Specialty Start Date End Date Vernon Mercedes MD [address] [place] [phone] PCP - General FAMILY PRACTICE 10/27/15 12/02/21 [place] [address] [place] Home Economics Agent CARDIOVASCULAR DISEASE 08/19/16 Raul Santana MD [address] [place] [address] CLINICAL CARDIAC ELECTROPHYSIOLOGY 06/16/17 Danny Blackwell MD [address] [place] [address] ORTHOPAEDIC SURGERY 05/01/19 documented as of this encounter
--- OUTSIDE RECORDS SUMMARY | 2024-04-23 04:26 | XMS_ITS | Encounter Summary ---
Author Organization [facility] Address [address] [place] [address]. [place], [place] [address] [place] [address] Care Team Providers Care Privacy Manager Name Role Phone Vernon Mercedes MD Primary Care Provider [phone] Evaristo Allan MD Unavailable Unavailabl e Raul Santana MD Unavailable Unavailabl e Danny Blackwell MD Unavailable [phone] Reason for Visit * Reason Comments Jnt Pain/Knee * Physical Medicine (Routine) - Closed Specialty Diagnoses / Procedures Referred By Charito ledbetter Referred To Contact PHYSICAL THERAPY Diagnoses Prosthetic joint implant failure, subsequent encounter Aftercare following right knee joint replacement surgery Dari Piña FNP-[facility] [address] [place] [address] Phone: tel: fax: Referral ID Status Reason Start Date Expiration Date V isits Requested Visits Authorized [id number] Closed Physical Therapy 10/16/2019 11/14/2020 60 60 Encounter Details Date Type Department Care Team (Late st Contact Info) Description 12/03/2019 2:29 PM CDT - 12/03/2019 11:59 PM T Hospital Encounter [facility] [address] [place] [address] Dari Piña FNP-[facility]ERSON [address] [place] [address] Sylvie Benitez, FACILITY ADMINISTRATOR Jnt Pain/Knee Discharge Disposition: Home or Self [...] 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 CARDIAC CATHETERIZATION 11/13/2018 ??? FRACTURE SURGERY ??? 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 HERNIA REPAIR ??? KNEE ARTHROPLASTY Bilateral ??? LITHOTRIPSY ??? XA ABLATION 05/19/2016 ??? XA CORONARY INTERVENTION 03/24/2018 INTERNET RESEARCHER PCI-mid RCA Subjective: Diagnosis: R TKA Referring Physician: ISAURO Sarah Onset Date: 10/15/19 Treatment Day: Total Approved Visits: 60 Therapy Plan of Care: 3x/wk for 4 wks Subjective Note: Pt states that his knee is hurting a little this afternoon and rates his pain a 1 in right knee pre treatment. Pt also reports that he had to get into a low car last night and could feel the stretch because it was really a bend. Location of Pain: R knee Pre-treatment Pain: 04/27 Post-treatment Pain: 04/27 Restriction/Precaution: WBAT Objective: Treatment Performed: Therapeutic Exercise - 18290 Minutes Performed: 40 minutes Intervention: - Nustep WL2 x6 mins UE/LE - Slant board calf stretch x1 min x2 - Heel raises x20 - Hip abd/ext/flx GTB B x 20 ea (incrsd band) - 6 step ups fw x20 - 6 step ups lat. x20 - Step stretch 10/10 - Squats x 15 HELD- PROM flexion/extension - heelslide with strap x5 mins with IASTM to quad on flexion stretch HELD- DKTC on peanut ball 2x10 HELD- quad set 10 sec x10 HELD- SAQ 5 sec x 20 - SLR x15 - Supine Bridges x 20 HELD- clamshells x 20 B HELD- Heel prop 5# x5' Manual Therapy - 79816 Minutes Performed: 0' Intervention: HELD- IASTM to R quad Neuromuscular Reeducation - 29153 Minutes Performed: 5 minutes Intervention: - Tandem Balance x1 min anya. x2 - Foam balance NBOS x1 min Therapeutic Activities - 91487 Minutes Performed: Modalities Minutes Performed: 15' Intervention: - gameready to R knee x 15 min Total Treatment Time: 60 minutes Education Performed: Pt educated on the importance of HEP consistency multiple times per day to increase knee ROM. ASSESSMENT: Note: Pt tolerated treatment without complaint of increase in pain or discomfort with all exercises. Pt corrected with use of small base quad cane since patient was using it in his right hand insteadof left hand. Pt able to correct without any safety concerns. Pt continues to progress towards his range of motion goals. PLAN: Plan for next visit: Continue range of motion and strengthening. HEP: heel slide, quad set, HS stretch seated, clamshell, SAQ, SLR, bridge documented in this encounter Plan of Treatment Upcoming Encounters Date Type Department Care Team (Late st Contact Info) Description 04/25/2024 11:00 AM MANAGER AUDIO Appointment [facility] [address] [place] [address] Ti Bonilla MD [address] [place] [place] [phone] 05/23/2024 3:30 PM MANAGER AUDIO Office Visit [facility] [address] [place] [phone] Jyoti Escobar MD [address] [place] [address] documented as of this encounter Visit Diagnoses Diagnosis Status post revision of total replacement of right knee- Primary documented in this encounter Care Teams Privacy Manager Relationship Specialty Start Date End Date Vernon Mercedes MD [address] [place] [address] PCP - General FAMILY PRACTICE 10/27/15 12/02/21 Evaristo Allan MD [address] [place] [address] [employer] [facility] Geneticist CARDIOVASCULAR DISEASE 08/19/16 Raul Santana MD [facility] [place] [address] CLINICAL CARDIAC ELECTROPHYSIOLOGY 06/16/17 Danny Blackwell MD [address] [place] [address] ORTHOPAEDIC SURGERY 05/01/19 documented as of this encounter
--- OUTSIDE RECORDS SUMMARY | 2024-04-23 04:26 | XMS_ITS | Encounter Summary ---
Author Organization [facility] Address [address] [place] [address]. [place], [place] [address] [place] [address] Care Team Providers Care Rubber Covering Machine Operator Name Role Phone Vernon Mercedes MD Primary Care Provider [phone] Evaristo Allan MD Unavailable Unavailabl e Raul Santana MD Unavailable Unavailabl e Danny Blackwell MD Unavailable [phone] Reason for Visit * Reason Comments Jnt Pain/Knee * Physical Medicine (Routine) - Closed Specialty Diagnoses / Procedures Referred By Charito ledbetter Referred To Contact PHYSICAL THERAPY Diagnoses Prosthetic joint implant failure, subsequent encounter Aftercare following right knee joint replacement surgery Dari Piña FNP-[facility] [address] [place] [address] Phone: tel: fax: Referral ID Status Reason Start Date Expiration Date V isits Requested Visits Authorized [id number] Closed Physical Therapy 10/16/2019 11/14/2020 60 60 Encounter Details Date Type Department Care Team (Late st Contact Info) Description 12/10/2019 2:30 PM CDT - 12/10/2019 11:59 PM T Hospital Encounter [facility] [address] [place] [address] Dari Piña FNP-ANDERSON [address] [place] [address] Sylvie Benitez, CHIEF QUALITY OFFICER Jnt Pain/Knee Discharge Disposition: Home or Self [...] 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 CARDIAC CATHETERIZATION 11/13/2018 ??? FRACTURE SURGERY ??? 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 HERNIA REPAIR ??? KNEE ARTHROPLASTY Bilateral ??? LITHOTRIPSY ??? XA ABLATION 05/19/2016 ??? XA CORONARY INTERVENTION 03/24/2018 ISSUER PCI-mid RCA Subjective: Diagnosis: R TKA Referring Physician: ISAURO Sarah Onset Date: 10/15/19 Treatment Day: Total Approved Visits: 60 Therapy Plan of Care: 3x/wk for 4 wks Subjective Note: Pt states that his medial aspect of right knee is really hurting him pre treatment. Pt rates that pain a 7. Pt also reports that ice is making his pain worse at home. Location of Pain: R knee Pre-treatment Pain: 7/10 Post-treatment Pain: 5/10 Restriction/Precaution: WBAT Objective: Treatment Performed: Therapeutic Exercise - 08696 Minutes Performed: 45 minutes Intervention: - Nustep WL2 x6 mins UE/LE - Slant board calf stretch x1 min x2 - Heel raises x20 - Hip abd/ext/flx GTB B x 20 ea (incrsd band) - side stepping GTB x 5 laps HELD- 6 step ups fw x20 HELD- 6 step ups lat. x20 HELD - Step stretch 10/10 - HS stretch 30 sec x 3 - Squats x 15 - sit to stand x 10 HELD- PROM flexion/extension HELD- heelslide with strap x5 mins with IASTM to quad on flexion stretch HELD- DKTC on peanut ball 2x10 HELD- quad set 10 sec x10 HELD- SAQ 5 sec x 20 HELD- SLR x15 HELD- Supine Bridges x 20 - LAQ 3lb 3 x 20 (incrsd #) HELD- clamshells x 20 B HELD- Heel prop 5# x5' Manual Therapy - 52523 Minutes Performed: 0' Intervention: HELD- IASTM to R quad Neuromuscular Reeducation - 21428 Minutes Performed: 0 minutes Intervention: - Tandem Balance x1 min anya. x2 - Foam balance NBOS x1 min Therapeutic Activities - 60373 Minutes Performed: Modalities Minutes Performed: 0 Intervention: HELD- gameready to R knee x 15 min Total Treatment Time: 45 minutes Education Performed: Educated patient to continue current HEP with addition of sit to stands. ASSESSMENT: Note: Pt tolerated treatment moderately on this date with complaint of increase in pain with all exercises along that medial aspect. Therefore steps were not completed this afternoon. Pt continues torequire verbal cueing during sit to stands to activate glutes more and to avoid externally rotatingbilateral feet. Pt refused ice post treatment due to ice increasing his pain at home. PLAN: Plan for next visit: Continue range of motion and strengthening. Continue to practice sit to standssince patient is having significant difficulty with this. HEP: heel slide, quad set, HS stretch seated, clamshell, SAQ, SLR, bridge, sit to stands documented in this encounter Plan of Treatment Upcoming Encounters Date Type Department Care Team (Late st Contact Info) Description 04/25/2024 11:00 AM TELESCOPE REPAIRER Appointment [facility] [address] [place] [address] Ti Bonilla MD [address] [place] [phone] 05/23/2024 3:30 PM TELESCOPE REPAIRER Office Visit [facility] [address] [place] [address] Jyoti Escobar MD [address] [place] [phone] documented as of this encounter Visit Diagnoses Diagnosis Status post revision of total replacement of right knee- Primary documented in this encounter Care Teams Rubber Covering Machine Operator Relationship Specialty Start Date End Date Vernon Mercedes MD [address] [place] [phone] PCP - General FAMILY PRACTICE 10/27/15 12/02/21 Evaristo Allan MD [address] [place] [address] [employer] [employer] Photographer CARDIOVASCULAR DISEASE 08/19/16 Raul Santana MD [address] [place] [address] CLINICAL CARDIAC ELECTROPHYSIOLOGY 06/16/17 Danny Blackwell MD [address] [place] [address] ORTHOPAEDIC SURGERY 05/01/19 documented as of this encounter
--- OUTSIDE RECORDS SUMMARY | 2024-04-23 04:26 | XMS_ITS | Encounter Summary ---
Author Organization [facility] Address [address] [place] [address]. 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 Not on [...] st Contact Info) Description 04/25/2024 11:00 AM DRIVER TRAINEE Appointment [facility] [address] [place] [address] Ti Bonilla MD [address] [place] [phone] 05/23/2024 3:30 PM DRIVER TRAINEE Office Visit [facility] [address] [place] [phone] Jyoti Escobar MD [address] [place] [address] documented as of this encounter Visit Diagnoses Not on filedocumented in this encounter Care Teams Vest Busheler Relationship Specialty Start Date End Date Vernon Mercedes MD [address] [place] [phone] PCP - General FAMILY PRACTICE 10/27/15 12/02/21 [place] [address] [place] Topographical Field Assistant CARDIOVASCULAR DISEASE 08/19/16 Raul Santana MD [address] [place] [address] CLINICAL CARDIAC ELECTROPHYSIOLOGY 06/16/17 Danny Blackwell MD [address] [place] [address] ORTHOPAEDIC SURGERY 05/01/19 documented as of this encounter
--- OUTSIDE RECORDS SUMMARY | 2024-04-23 04:26 | XMS_ITS | Encounter Summary ---
Author Organization [facility] Address [address] [place] [address]. 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 Not on [...] Contact Info) Description 04/25/2024 11:00 AM RETAIL RESET MERCHANDISER Appointment [facility] [address] [place] [address] Ti Bonilla MD [address] [place] [phone] 05/23/2024 3:30 PM RETAIL RESET MERCHANDISER Office Visit [facility] [address] [place] [phone] Jyoti Escobar MD [address] [place] [phone] documented as of this encounter Visit Diagnoses Not on filedocumented in this encounter Care Teams Armed Security Professional Relationship Specialty Start Date End Date Vernon Mercedes MD [address] [place] [phone] PCP - General FAMILY PRACTICE 10/27/15 12/02/21 [place] [address] [place] Cutter Head Sharpener CARDIOVASCULAR DISEASE 08/19/16 Raul Santana MD [address] [place] [address] CLINICAL CARDIAC ELECTROPHYSIOLOGY 06/16/17 Danny Blackwell MD [address] [place] [address] ORTHOPAEDIC SURGERY 05/01/19 documented as of this encounter
--- OUTSIDE RECORDS SUMMARY | 2024-04-23 04:26 | XMS_ITS | Encounter Summary ---
Author Organization [facility] Address [address] [place] [address]. [place] [address] [place] [address] Care Team Providers Care Electrical Controls Designer Name Role Phone Vernon Mercedes MD Primary Care Provider [phone] Evaristo Allan MD Unavailable UnavailRaul Suresh MD Unavailable Unavailabl Danny Lopes MD Unavailable [phone] Gayle Arce APRN, RISK CONSULTING TREASURY DIRECTOR-C Unavailable [phone] Reason for Visit * Reason Onset Date Comments Medication 02/06/2020 Prior Authorizat ion for Pradaxa Encounter Details Date Type Department Care Team (Late st Contact Info) Description 02/06/2020 [facility] [address] [place] [address] Raul Santana MD Medication (Prior Authorization for Pradaxa) Social History Tobacco Use Types Packs/Day Years [...] 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 No / Unsure 03/06/2020 10:30 AM CASEWORK MANAGER documented as of this encounter Functional [...] documented in this encounter Progress Notes * Kadie Gunter LPN - 02/06/2020 3:44 PM CDT PA-Approved (02/04/2020-02/03/2021). Called [facility] to inform them of the approval. Pharmacy staff states that the copay will be $0. Called pt-no answer, LM for patient to return call. If/when pt returns call, please inform patient that a prior authorization for Pradaxa was sent to his insurance and was approved. Per pharmacy staff, patient has a $0 copay. Approval sent to scan. * Kadie Gunter LPN - 02/06/2020 2:57 PM CDT PA submitted through CoverMyMeds for Pradaxa 150mg Claire: [id number] documented in this encounter Plan of Treatment Upcoming Encounters Date Type Department Care Team (Late st Contact Info) Description 04/25/2024 11:00 AM CASEWORK MANAGER Appointment [facility] [address] [place] [address] Ti Bonilla MD [address] [place] [phone] 05/23/2024 3:30 PM CASEWORK MANAGER Office Visit [facility] [address] [place] [address] Jyoti Escobar MD [address] [place] [address] documented as of this encounter Visit Diagnoses Not on filedocumented in this encounter Care Teams Electrical Controls Designer Relationship Specialty Start Date End Date Vernon Mercedes MD [address] [place] [phone] PCP - General FAMILY PRACTICE 10/27/15 12/02/21 Evaristo Allan MD [facility] [place] [address] Gould Pump Rebuilder CARDIOVASCULAR DISEASE 08/19/16 Raul Santana MD [address] [place] [address] CLINICAL CARDIAC ELECTROPHYSIOLOGY 06/16/17 Danny Blackwell MD [address] [place] [phone] ORTHOPAEDIC SURGERY 05/01/19 Gayle Arce APRN, RISK CONSULTING TREASURY DIRECTOR-C [address] [facility] [address] [place] [address] NURSE PRACTITIONER 03/03/20 documented as of this encounter
--- OUTSIDE RECORDS SUMMARY | 2024-04-23 04:26 | XMS_ITS | Encounter Summary ---
Author Organization [facility] Address [address] [place] [address]. [place], [place] [address] [place] [address] Care Team Providers Care Precision Structural Metal Fitter Name Role Phone Vernon Mercedes MD Primary Care Provider [phone] Evaristo Allan MD Unavailable Unavailabl Raul Duran MD Unavailable Unavailabl e Danny Blackwell MD Unavailable [phone] Reason for Visit * Reason Comments Total Knee Arth * Physical Medicine (Routine) - Closed Specialty Diagnoses / Procedures Referred By Charito ledbetter Referred To Contact PHYSICAL THERAPY Diagnoses Prosthetic joint implant failure, subsequent encounter Aftercare following right knee joint replacement surgery Dari Piña, COFFEE SHOP AIDE-BC [address] [place] [address] Phone: tel: fax: Referral ID Status Reason Start Date Expiration Date V isits Requested Visits Authorized [id number] Closed Physical Therapy 10/16/2019 11/14/2020 60 60 Encounter Details Date Type Department Care Team (Late st Contact Info) Description 12/31/2019 2:30 PM CDT - 12/31/2019 11:59 PM T Hospital Encounter [facility] [address] [place] [address] Danny Blackwell MD [address] [place] [phone] Long Dotson, [facility] [address] [place] [phone] Total Knee Arth Discharge Disposition: Home or Self Care (Routine [...] 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 No / Unsure 12/31/2019 2:47 PM CDT documented as of this encounter [...] as of this encounter Progress Notes * Long Dotson, ADVANCE SEAL DELIVERY SYSTEM MAINTAINER - 12/31/2019 2:49 PM CDT [facility] PHYSICAL THERAPY TREATMENT NOTE Time In: 1445 Time Out: 1525 Total Time: 40 minutes Name: Evaristo Zelaya : 1960 Past [...] CATHETERIZATION 01/04/2018 occluded prox RCA w/well developed dmsy-yv-ltvax collaterals lvef 55-60% ??? CARDIAC CATHETERIZATION 11/13/2018 ??? FRACTURE SURGERY ??? 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 HERNIA REPAIR ??? KNEE ARTHROPLASTY Bilateral ??? LITHOTRIPSY ??? XA ABLATION 05/19/2016 ??? XA CORONARY INTERVENTION 03/24/2018 LEADER TIER PCI-mid RCA Subjective: Diagnosis: R TKA Referring Physician: ISAURO Sarah Onset Date: 10/15/19 Treatment Day: Total Approved Visits: 60 Therapy Plan of Care: 3x/wk for 4 wks Subjective Note: Pt reports he fell while getting out of his camper last weekend because one of theprongs of his quad cane didn't stay on the step. He states he was able to get himself back up and he wasn't injured in any way. Pt reports the hardest thing for him functionally at this point is standing up from a seated position. Pt follows up with Dr. Blackwell on 01/16/2020. Location of Pain: R knee Pre-treatment Pain: 0/10 Post-treatment Pain: /10 Restriction/Precaution: WBAT Objective: Treatment Performed: Therapeutic Exercise - 44015 Minutes Performed: 40 minutes Intervention: - Nustep WL2 x6 mins UE/LE -Slant board 30 x 3 B 3# cuff weight on during standing activity: - weighted hip kicks abd/flx - weighted marching - Step Ups 8 x15 fw (moderate cueing for conscious foot placement/prevention of ER) - Second step hamstring/knee flexion stretch 10/10 - Seated SLR x10 - SAQ 3# x20 - SLR x20 Manual Therapy - 51077 Minutes Performed: 0' Intervention: HELD- IASTM to R quad Neuromuscular Reeducation - 28888 Minutes Performed: 0' Intervention: - Tandem Balance x1 min anya. x2 - Foam balance NBOS x1 min Therapeutic Activities - 96192 Minutes Performed: - Sit to stand x10 Modalities Minutes Performed: 0' Intervention: HELD- gameready to R knee x 15 min Total Treatment Time: 40 minutes Education Performed: ASSESSMENT: Pt still struggling with sit to stand transfer, and step ups when instructed to minimize UE utilization. Treatment was cut short slightly due to pt arriving 15 minutes late to his appointment. PLAN: Plan for next visit: Continue range [...] Contact Info) Description 04/25/2024 11:00 AM CLINICAL EDUCATION SPECIALIST Appointment [facility] [place] [address] Ti Bonilla MD [address] [place] [phone] 05/23/2024 3:30 PM CLINICAL EDUCATION SPECIALIST Office Visit [facility] [address] [address] Jyoti Escobar MD [address] [place] [address] [phone] documented as of this encounter Visit Diagnoses Diagnosis Status post revision of total replacement of right knee- Primary documented in this encounter Care Teams Precision Structural Metal Fitter Relationship Specialty Start Date End Date Vernon Mercedes MD [address] [place] [phone] PCP - General FAMILY PRACTICE 10/27/15 12/02/21 Evaristo Allan MD [address] [place] [address] [place] Home Service Consultant CARDIOVASCULAR DISEASE 08/19/16 Raul Santana MD [address] [place] [address] CLINICAL CARDIAC ELECTROPHYSIOLOGY 06/16/17 Danny Blackwell MD [address] [facility] [place] [address] ORTHOPAEDIC SURGERY 05/01/19 documented as of this encounter
--- OUTSIDE RECORDS SUMMARY | 2024-04-23 04:26 | XMS_ITS | Encounter Summary ---
Author Organization [facility] Address [address] [place] [address]. [place], [place] [address] [place] [address] Care Team Providers Care Instructor Painting Name Role Phone Vernon Mercedes MD Primary Care Provider [phone] Evaristo Allan MD Unavailable Unavailabl Raul Duran MD Unavailable Unavailabl Danny Lopes MD Unavailable [phone] Reason for Visit * Physical Medicine (Routine) - Closed Specialty Diagnoses / Procedures Referred By Charito ledbetter Referred To Contact PHYSICAL THERAPY Diagnoses Prosthetic joint implant failure, subsequent encounter Aftercare following right knee joint replacement surgery Dari Piña FNP-BC [address] [place] [address] Phone: tel: fax: Referral ID Status Reason Start Date Expiration Date V isits Requested Visits Authorized [id number] Closed Physical Therapy 10/16/2019 11/14/2020 60 60 Encounter Details Date Type Department Care Team (Late st Contact Info) Description 12/05/2019 2:30 PM CDT - 12/05/2019 3:09 PM CDT Hospital Encounter [facility] [address] [place] [address] Dari Piña FNP-BC [address] [place] [address] Keiry Naranjo, [employer] ARCHITECT [address] [place] [address] Discharge Disposition: Home or Self Care (Routine [...] 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 CARDIAC CATHETERIZATION 11/13/2018 ??? FRACTURE SURGERY ??? 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 HERNIA REPAIR ??? KNEE ARTHROPLASTY Bilateral ??? LITHOTRIPSY ??? XA ABLATION 05/19/2016 ??? XA CORONARY INTERVENTION 03/24/2018 INTEGRATED CIRCUIT FABRICATOR PCI-mid RCA Subjective: Diagnosis: R TKA Referring Physician: ISAURO Sarah Onset Date: 10/15/19 Treatment Day: Total Approved Visits: 60 Therapy Plan of Care: 3x/wk for 4 wks Subjective Note: Patient reports no pain currently. Patient states that his thighs are a bit sore however. Location of Pain: R knee Pre-treatment Pain: 0/10 Post-treatment Pain: /10 Restriction/Precaution: WBAT Objective: AAROM R knee flexion 107 degrees Treatment Performed: Therapeutic Exercise - 09470 Minutes Performed: 45 minutes Intervention: - Nustep [...] Heel prop 5# x5' Manual Therapy - 60289 Minutes Performed: 0' Intervention: HELD- IASTM to R quad Neuromuscular Reeducation - 59604 Minutes Performed: 5 minutes Intervention: - Tandem Balance x1 min anya. x2 - Foam balance NBOS x1 min Therapeutic Activities - 28440 Minutes Performed: Modalities Minutes Performed: 0' Intervention: - gameready to R knee x 15 min Total Treatment Time: 60 minutes Education Performed: Pt educated on the importance of HEP consistency multiple times per day to increase knee ROM. ASSESSMENT: Slight extensor lag still noted with SLR exercise however patient is presenting with improved ability to actively lift the R LE with no assistance. Patients ROM and strength has continued to improve as well with less difficulty noted in step activity and improved measure with stretching. PLAN: Plan for next visit: Continue range of motion and strengthening. HEP: heel slide, quad set, HS stretch seated, clamshell, SAQ, SLR, bridge documented in this encounter Plan of Treatment Upcoming Encounters Date Type Department Care Team (Late st Contact Info) Description 04/25/2024 11:00 AM RECONCILIATION CLERK Appointment [facility] [address] [place] [address] Ti Bonilla MD [address] [place] [phone] 05/23/2024 3:30 PM RECONCILIATION CLERK Office Visit [facility] [address] [place] [address] Jyoti Escobar MD [address] [place] [address] 873051 documented as of this encounter Visit Diagnoses Diagnosis Status post revision of total replacement of right knee documented in this encounter Care Teams Instructor Painting Relationship Specialty Start Date End Date Vernon Mercedes MD [address] [place] [address] PCP - General FAMILY PRACTICE 10/27/15 12/02/21 Evaristo Allan MD [address] [place] [address] [facility] [employer] Supervisor CARDIOVASCULAR DISEASE 08/19/16 Raul Santana MD [address] [place] [address] CLINICAL CARDIAC ELECTROPHYSIOLOGY 06/16/17 Danny Blackwell MD [address] [place] [address] ORTHOPAEDIC SURGERY 05/01/19 documented as of this encounter
--- OUTSIDE RECORDS SUMMARY | 2024-04-23 04:26 | XMS_ITS | Encounter Summary ---
Author Organization [facility] Address [address] [place] [address]. [place] [address] [place] [address] Care Team Providers Care Refrigeration Installer Name Role Phone Vernon Mercedes MD Primary Care Provider [phone] Evaristo Allan MD Unavailable Unavailabl Raul Duran MD Unavailable Unavailabl Danny Lopes MD Unavailable [phone] Gayle Arce APRN, TIN POURER-C Unavailable Reason for Visit * Reason Onset Date Comments Appointment Request 03/03/2020 Encounter Details Date Type Department Care Team ([facility] Contact Info) Description 03/03/2020 Telephone [facility] [address] [place] [address] Gayle Arce APRN, TIN POURER-C [address] [facility] [address] [place] [address] Appointment Request Social History Tobacco [...] 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 No / Unsure 02/21/2020 8:45 AM TAX TECHNICIAN documented as of this encounter Functional Status [...] documented in this encounter Progress Notes * Keyonna Ortega LPN - 03/03/2020 4:33 PM CST Patient called request appt with Gayle Arce RN. Has not heard back from office and would like appt due to low blood pressure. Made appt REFERRAL/PCP: Vernon Mercedes INS: BCBS preferred APPT PROV/DATE/TIME: Gayle Arce NP PHI 03/06/2020 @ 10:30 TESTING NEEDED/SCHEDULED: no STAFF MSG SENT: no COVID+TEST/EXPOSURE IN LAST 14 DAYS: no RECORDS NEEDED: no MYCHART OFFERED: LETTER SENT: no CARE TEAM: yes TECHNICIAN documented in this encounter Plan of Treatment Upcoming Encounters Date Type Department Care Team (Late st Contact Info) Description 04/25/2024 11:00 AM TAX TECHNICIAN Appointment [facility] [address] [place] [address] Ti Bonilla MD [address] [place] [phone] 05/23/2024 3:30 PM TAX TECHNICIAN Office Visit [facility] [address] [place] [phone] Jyoti Escobar MD [address] [place] [address] documented as of this encounter Visit Diagnoses Not on filedocumented in this encounter Care Teams Refrigeration Installer Relationship Specialty Start Date End Date Vernon Mercedes MD [address] [place] [address] PCP - General FAMILY PRACTICE 10/27/15 12/02/21 Evaristo Allan MD [address] [place] [address] [place] Ice Cream Mixer CARDIOVASCULAR DISEASE 08/19/16 Raul Santana MD [address] [place] [address] CLINICAL CARDIAC ELECTROPHYSIOLOGY 06/16/17 Danny Blackwell MD [address] [place] [address] ORTHOPAEDIC SURGERY 05/01/19 Gayle Arce APRN, TIN POURER-C [address] [facility] [address] [place] [address] NURSE PRACTITIONER 03/03/20 documented as of this encounter
--- OUTSIDE RECORDS SUMMARY | 2024-04-23 04:26 | XMS_ITS | Encounter Summary ---
Author Organization [facility] Address [address] [place] [address]. 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 Not on [...] st Contact Info) Description 04/25/2024 11:00 AM CAREER PROFESSIONAL Appointment [facility] [address] [place] [address] Ti Bonilla MD [address] [place] [phone] 05/23/2024 3:30 PM CAREER PROFESSIONAL Office Visit [facility] [address] [place] [address] Jyoti Escobar MD [address] [place] [phone] documented as of this encounter Visit Diagnoses Not on filedocumented in this encounter Care Teams Lockstitch Coat Joiner Relationship Specialty Start Date End Date Vernon Mercedes MD [address] [place] [phone] PCP - General FAMILY PRACTICE 10/27/15 12/02/21 [place] [address] [place] Jet Handler CARDIOVASCULAR DISEASE 08/19/16 Raul Santana MD [address] [place] [address] CLINICAL CARDIAC ELECTROPHYSIOLOGY 06/16/17 Danny Blackwell MD [address] [place] [address] ORTHOPAEDIC SURGERY 05/01/19 documented as of this encounter
--- OUTSIDE RECORDS SUMMARY | 2024-04-23 04:26 | XMS_ITS | Encounter Summary ---
Author Organization [facility] Address [address] [place] [address]. 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 [...] Assessment Author Status Yes 10/15/2019 4:47 PM Kyalyn Rodriguez RN Active * Do you have [...] st Contact Info) Description 04/25/2024 11:00 AM COLOR ARTIST Appointment [facility] [address] [place] [address] Ti Bonilla MD [address] [place] [phone] 05/23/2024 3:30 PM COLOR ARTIST Office Visit [facility] [address] [place] [address] Jyoti Escobar MD [address] [place] [phone] documented as of this encounter Visit Diagnoses Not on filedocumented in this encounter Care Teams Head Of Store Operations Relationship Specialty Start Date End Date Vernon Mercedes MD [address] [place] [phone] PCP - General FAMILY PRACTICE 10/27/15 12/02/21 [place] [address] [place] Director Machine CARDIOVASCULAR DISEASE 08/19/16 Raul Santana MD [address] [place] [address] CLINICAL CARDIAC ELECTROPHYSIOLOGY 06/16/17 Danny Blackwell MD [address] [place] [address] ORTHOPAEDIC SURGERY 05/01/19 documented as of this encounter
--- OUTSIDE RECORDS SUMMARY | 2024-04-23 04:26 | XMS_ITS | Encounter Summary ---
Author Organization [facility] Address [address] [place] [address]. [place], [place] [address] [place] [address] Care Team Providers Care Barge Hand Name Role Phone Vernon Mercedes MD Primary Care Provider [phone] Evaristo Allan MD Unavailable Unavailabl Raul Duran MD Unavailable Unavailabl e Danny Blackwell MD Unavailable [phone] Reason for Visit * Reason Comments Jnt Pain/Knee * Physical Medicine (Routine) - Closed Specialty Diagnoses / Procedures Referred By Charito ledbetter Referred To Contact PHYSICAL THERAPY Diagnoses Prosthetic joint implant failure, subsequent encounter Aftercare following right knee joint replacement surgery Dari Piña, [facility]- [address] [place] [address] Phone: tel: fax: Referral ID Status Reason Start Date Expiration Date V isits Requested Visits Authorized [id number] Closed Physical Therapy 10/16/2019 11/14/2020 60 60 Encounter Details Date Type Department Care Team (Latest Contact Info) Description 2020 12:57 PM CDT - 2020 11:59 PM CDT Hospital Encounter [facility] [address] [place] [address] Danny Blackwell MD [address] [place] [phone] Rossy Cardenas DPT Jnt Pain/Knee Discharge Disposition: Home or [...] 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 CARDIAC CATHETERIZATION 11/13/2018 ??? FRACTURE SURGERY ??? 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 HERNIA REPAIR ??? KNEE ARTHROPLASTY Bilateral ??? LITHOTRIPSY ??? XA ABLATION 05/19/2016 ??? XA CORONARY INTERVENTION 03/24/2018 DISTRIBUTION MANAGER PCI-mid RCA Subjective: Diagnosis: R TKA Referring Physician: ISAURO Sarah Onset Date: 10/15/19 Treatment Day: Total Approved Visits: 60 Therapy Plan of Care: 3x/wk for 4 wks Subjective Note: Patient reports a 90% improvement since his initial evaluation. He states an improvement in his ability to walk, bend and straighten his knee, and relief of pain in the knee. The patient continues to report mild difficulty with stair climbing, but states he has had trouble with stairs since his first replacement ~20 years ago. He also reports difficulty getting in and out of a chair, but states he has also had trouble with that task since his first replacement ~ 20 years ago. He does continue to have pain in his mar on the right side. Location of Pain: R mar Pre-treatment Pain: 2/10 Post-treatment Pain: -/10 Restriction/Precaution: WBAT Objective: KNEE??ROM Left??AROM Right??P/AROM??(01/02/20) Knee extension 110 0/0 Knee flexion 1 105/103 ? KNEE STRENGTH Left Right (01/02/20) Hip flexor 4+/5 4+/5?? Quadricep 5/5 ??5/5 Dorsiflexors 5/5 5/5 Hamstrings 5/5 ??4+/5 Edema: R: 37 cm; L: 37 cm Functional Activity Performance Gait:??Patient ambulates with equal but shortened step length bilaterally. He also continues to demonstrate bilateral ER, but this is normal for him. He is now ambulating with no assistive device. Sit to Stand:??Patient's performance is dependent on the height of surface he is trying to stand from. Patient sit to stand is WFL if seat is higher. If seat is lower patient requires CAREER AGENT and multiple attempts with difficulty keeping feet under him. The patient reports that this is normal for him since his first replacement ~20 years ago. Treatment Performed: Therapeutic Exercise - 46318 Minutes Performed: 45 minutes Intervention: - Nustep WL2 x6 mins UE/LE -Slant board 30 x 3 B 3# cuff weight on during standing activity: - weighted hip kicks abd/flx - weighted marching HELD- Step Ups 8 x15 fw (moderate cueing for conscious foot placement/prevention of ER) - Second step hamstring/knee flexion stretch 10/10 HELD- Seated SLR x10 HELD- SAQ 3# x20 - SLR x20 -quad set 10 sec x10 - re evaluation Manual Therapy - 37543 Minutes Performed: 0' Intervention: HELD- IASTM to R quad Neuromuscular Reeducation - 76870 Minutes Performed: 0' Intervention: - Tandem Balance x1 min anya. x2 - Foam balance NBOS x1 min Therapeutic Activities - 11168 Minutes Performed: - Sit to stand x10 Modalities Minutes Performed: 0' Intervention: HELD- gameready to R knee x 15 min Total Treatment Time: 45 minutes ?? GOALS: Pt will increase R knee flexion AROM from 60 to 110 to improve his ability to climb stairs after 4 weeks of physical therapy.??[NOT MET] Pt will increase R knee extension AROM from 4 to 0 to improve his ability to walk with proper mechanics in the grocery store after 4 weeks of physical therapy.??[GOAL MET 01/02/20] Pt will present with gross R LE strength to 4+/5 to improve tolerance for squatting activities after 4 weeks of physical therapy.??[GOAL MET 12/31/19] Pt will reduce edema from 42.5 to 37 cm after 4 weeks of physical therapy.??[GOAL MET 12/31/19] Pt will increase LEFS score from 6 to 15 to meet the MCID after 4 weeks of physical therapy.??[GOALMET 11/28/19] Pt will be independent with HEP after 2 weeks of physical therapy??[GOAL MET 11/28/19] ASSESSMENT: Mr. Zelaya has been seen for a total of 23 physical therapy visits post right TKA revision. The patient has seen improvements in pain reduction, edema reduction, strength, and range of motion. The patient's range of motion has improved compared to his previous range from a past TKA. The patient is now ambulating independently. While he still lacks full range of motion and has difficulty with sit to stands, I believe the patient should be discharged at this time. The patient subjectively reports that he is functioning much better than his prior level and has no safety concerns regarding discharge. The patient has been instructed in a final HEP and I have stressed the importance of adherence. PLAN: Plan for next visit: Discharge from physical therapy services. Cosigned by ISAURO Rodriguez at 2020 3:43 PM CDT documented in this encounter Plan of Treatment Upcoming Encounters Date Type Department Care Team (Late st Contact Info) Description 04/25/2024 11:00 AM CLINICAL STAFF RN Appointment [facility] [address] [place] [address] Ti Bonilla MD [address] [place] [phone] 05/23/2024 3:30 PM CLINICAL STAFF RN Office Visit [facility] [address] [place] [address] Jyoti Escobar MD [address] [place] [address] documented as of this encounter Visit Diagnoses Diagnosis Status post revision of total replacement of right knee documented in this encounter Care Teams Barge Hand Relationship Specialty Start Date End Date Vernon Mercedes MD [address] [place] [phone] PCP - General FAMILY PRACTICE 10/27/15 12/02/21 Evaristo Allan MD [address] [place] [address] [place] Acting Instructor CARDIOVASCULAR DISEASE 08/19/16 Raul Santana MD [address] [place] [address] CLINICAL CARDIAC ELECTROPHYSIOLOGY 06/16/17 Danny Blackwell MD [address] [place] [address] ORTHOPAEDIC SURGERY 05/01/19 documented as of this encounter
--- OUTSIDE RECORDS SUMMARY | 2024-04-23 04:26 | XMS_ITS | Encounter Summary ---
Author Organization [facility] Address [address] [place] [address]. [place], [place] [address] [place] [address] Care Team Providers Care Rag Production Worker Name Role Phone Vernon Mercedes MD Primary Care Provider [phone] Evaristo Allan MD Unavailable UnavailRaul Suresh MD Unavailable Unavailabl Danny Lopes MD Unavailable [phone] Reason for Visit * Physical Medicine (Routine) - Closed Specialty Diagnoses / Procedures Referred By Charito ledbetter Referred To Contact PHYSICAL THERAPY Diagnoses Prosthetic joint implant failure, subsequent encounter Aftercare following right knee joint replacement surgery Dari Piña FNP-BC [address] [place] [address] Phone: tel: fax: Referral ID Status Reason Start Date Expiration Date V isits Requested Visits Authorized [id number] Closed Physical Therapy 10/16/2019 11/14/2020 60 60 Encounter Details Date Type Department Care Team (Late st Contact Info) Description 11/30/2019 7:45 AM CDT - 11/30/2019 11:59 PM T Hospital Encounter [facility] [address] [place] [address] Dari Piña FNP-BC [address] [place] [address] Keiry Naranjo, PEANUT SHELLER [address] [place] [address] Discharge Disposition: Home or Self Care (Routine [...] 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 CARDIAC CATHETERIZATION 11/13/2018 ??? FRACTURE SURGERY ??? 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 HERNIA REPAIR ??? KNEE ARTHROPLASTY Bilateral ??? LITHOTRIPSY ??? XA ABLATION 05/19/2016 ??? XA CORONARY INTERVENTION 03/24/2018 CELL ASSEMBLY PINNER PCI-mid RCA Subjective: Diagnosis: R TKA Referring Physician: ISAURO Sarah Onset Date: 10/15/19 Treatment Day: Total Approved Visits: 60 Therapy Plan of Care: 3x/wk for 4 wks Subjective Note: Patient reports he bought himself a cane and has been using it to get around at home and outside the home. Patient states he feels good using it. Patient reports no pain this visit. Location of Pain: R knee Pre-treatment Pain: 0/10 Post-treatment Pain: /10 Restriction/Precaution: WBAT Objective: Treatment Performed: Therapeutic Exercise - 35387 Minutes Performed: 35 minutes Intervention: - Nustep WL2 x6 mins UE/LE - Slant board calf stretch x1 min x2 - Heel raises x20 - Hip abd/ext/flx RTB B x 20 ea - 6 step ups fw x20 - [...] Heel prop 5# x5' Manual Therapy - 64253 Minutes Performed: 0' Intervention: HELD- IASTM to R quad Neuromuscular Reeducation - 77508 Minutes Performed: Intervention: - Tandem Balance x1 min anya. N- Foam balance NBOS x1 min Therapeutic Activities - 31544 Minutes Performed: Modalities Minutes Performed: 15' Intervention: - gameready to R knee x 15 min Total Treatment Time: 50 minutes Education Performed: Pt educated on the importance of HEP consistency multiple times per day to increase knee ROM. ASSESSMENT: Patient ambulates in to the clinic with SBQC. Patient demonstrates good ability to ambulate with cane however is cued on proper use as patient tends to place only one prong on the ground. Patient cont. To tolerate exercises better each visit with progression in all areas. Continued focus on knee stability and strength as well as stretching for overall functional mobility/gait improvement and safety. PLAN: Plan for next visit: Continue range of motion and strengthening. HEP: heel slide, quad set, HS stretch seated, clamshell, SAQ, SLR, bridge documented in this encounter Plan of Treatment Upcoming Encounters Date Type Department Care Team (Late st Contact Info) Description 04/25/2024 11:00 AM SWEATBAND SEPARATOR Appointment [facility] [place] [address] Ti Bonilla MD [address] [place] [phone] 05/23/2024 3:30 PM SWEATBAND SEPARATOR Office Visit [facility] [address] [place] [address] Jyoti Escobar MD [address] [place] [address] documented as of this encounter Visit Diagnoses Diagnosis Status post revision of total replacement of right knee documented in this encounter Care Teams Rag Production Worker Relationship Specialty Start Date End Date Vernon Mercedes MD [address] [place] [address] PCP - General FAMILY PRACTICE 10/27/15 12/02/21 Evaristo Allan MD [address] [place] [address] [place] Core Extruder CARDIOVASCULAR DISEASE 08/19/16 Raul Santana MD [address] [place] [address] CLINICAL CARDIAC ELECTROPHYSIOLOGY 06/16/17 Danny Blackwell MD [address] [facility] [address] ORTHOPAEDIC SURGERY 05/01/19 documented as of this encounter
--- OUTSIDE RECORDS SUMMARY | 2024-04-23 04:26 | XMS_ITS | Encounter Summary ---
Author Organization [facility] Address [address] [place] [address]. [place], [place] [address] [place], [place] [id number] Care Team Providers Care Gas Turbine Mechanic Name Role Phone Vernon Mercedes MD Primary Care Provider [phone] Evaristo Allan MD Unavailable UnavailRaul Suresh MD Unavailable Unavailabl e Danny Blackwell MD Unavailable [phone] Reason for Visit * Reason Comments Postop Followup Revision right total knee arthroplasty DOS:10/15/2019 Encounter Details Date Type Department Care Team (Latest Contact Info) Description 01/16/2020 2:00 PM CDT Office Visit [address] [address] Danny Blackwell MD [address] [place] [address] Postop Followup (Revision right total knee arthroplasty [...] 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 Not on file [...] - - Weight 114.3 kg (252 lb) 01/16/2020 2:04 PM CDT Height 177.8 cm (5' 10 ) 01/16/2020 2:04 PM CDT Body Mass Index 36.16 01/16/2020 2:04 PM CDT documented in this encounter Functional [...] Progress Notes * Danny Blackwell MD - 01/16/2020 2:00 PM CDT Chief Complaint: Postop Followup (Revision right total knee arthroplasty DOS:10/15/2019) History of Present Illness: Evaristo Zelaya is a 60-year-old male who presents to the office for Postop Followup (Revision right total knee arthroplasty DOS:10/15/2019) Patient presents for post-op follow up after RIGHT knee revision on 10/15/2019. Patient has completed PT. Patient reports pain to the medial RIGHT knee and also an area to the RIGHT lower leg about mid mar. He does report a fall a little over one week ago and that is when he noticed the mar pain.He reports he landed on his back and buttocks and does not recall hitting any part of the RIGHT leg during the fall. Patient is taking hydrocodone and tramadol for pain. Patient reports some tinglingin the BILATERAL lower legs which he reports diabetic neuropathy. Patient is ambulating without assistive device. ROS: See HPI for pertinent positives Problem List: Patient Active Problem List Diagnosis ??? Essential hypertension ??? Paroxysmal atrial fibrillation ([facility]) ??? residential current use of anticoagulant therapy ??? Obstructive sleep apnea ??? Hyperlipidemia ??? Diabetes ([facility]) ??? Coronary artery disease ??? 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 Cardiovascular stress test abnormal ??? Arthritis of knee ??? Derangement of medial meniscus, left ??? Heartburn ??? Knee pain ??? Mechanical complication of internal orthopedic device, implant or graft, initial encounter ([facility]) ??? Patella-femoral syndrome ??? Pes anserine bursitis ??? Recurrent ventral incisional hernia ??? Abdominal pain ??? Failure of total knee replacement, initial encounter ([facility]) ??? S/P coronary artery stent placement ??? Prosthetic knee implant failure ([facility]) ??? Status post revision of total replacement of right knee History: Past Medical History: Diagnosis Date ??? Abnormal stress test ??? Arthritis ??? 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 Coronary artery disease ??? Diabetes ([facility]) ??? Fatigue ??? GERD (gastroesophageal reflux disease) ??? Headache ??? Hyperlipidemia ??? Hypertension has had elevated B/P readings ??? Kidney stone ??? SARAI on CPAP ??? Paroxysmal atrial fibrillation ([facility]) ??? PONV (postoperative nausea and vomiting) Past Surgical History: Procedure Laterality Date ??? CARDIAC CATHETERIZATION 01/04/2018 occluded prox RCA w/well developed crzg-ix-ijnar collaterals lvef 55-60% ??? CARDIAC CATHETERIZATION 11/13/2018 ??? FRACTURE SURGERY ??? 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 HERNIA REPAIR ??? KNEE ARTHROPLASTY Bilateral ??? LITHOTRIPSY ??? XA ABLATION 05/19/2016 ??? 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 PGM ??? MGF ??? MGM Social History Socioeconomic History ??? Marital status: Spouse name: Not on file ??? Number of children: 1 ??? Years of education: Not on file ??? Highest education level: Not on file Occupational History ??? 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 Financial resource strain: Not [...] file Gets together: Not on file Attends holiness service: Not on file Active member of [...] , Rfl: ??? carbidopa-levodopa 25-100 MG tablet, , Disp: , Rfl: ??? famotidine 20 MG tablet, Take 2 tablets by mouth 2 (two) times a day., Disp: , Rfl: ??? furosemide 20 MG tablet, Take 20 mg by mouth daily. , Disp: , Rfl: ??? gabapentin 300 MG capsule, Take 300 mg by mouth 3 (three) times daily. , Disp: , Rfl: ??? HYDROcodone-acetaminophen 5-325 MG tablet, , Disp: , Rfl: ??? isosorbide mononitrate [...] index is 36.16 kg/m??. Last Recorded Weight 01/16/20 1404 Weight: 114.3 kg (252 lb) Physical exam: Constitutional: Alert and in no acute distress. Neurological: The patient was oriented to person, place, and time. Eyes: The sclera and conjunctiva were normal ENT: Hearing was normal. Neck: The appearance of the neck was normal. Cardiovascular: Normal pulses. Pulmonary: No respiratory distress. Skin: No injuries or skin lesion. Musculoskeletal: Right knee demonstrates no swelling or erythema. No warmth to speak of. His range of motion is 0-1 10. Mild antalgic gait. Good soft tissue balance. Tenderness present medial knee extending to mid tibia Results: X-rays reviewed today demonstrate that his total knee revision components are well positioned and appear stable. His bony defect in the femur is healing Assessment: Encounter Diagnose(s) ICD-10-CM ICD-9-CM SNOMED CT(R) 1. Status post revision of total replacement of right knee Z96.651 V43.65 HISTORY OF REVISION OF RIGHT TOTAL KNEE ARTHROPLASTY Plan: Patient is doing well with preoperative symptoms resolved. He is continue to work on strength and indicates that he does have some giving way in both knees. He will plan to return in 3 months. He has completed physical therapy and he understands the home exercises. Follow up: Return in about 3 months (around 04/16/2020). DANNY BLACKWELL MD documented in this encounter Plan of Treatment Upcoming Encounters Date Type Department Care Team (Late st Contact Info) Description 04/25/2024 11:00 AM TRANSMISSION ENGINEER Appointment [facility] [address] [facility] [place] [address] Ti Bonilla MD [address] [place] [phone] 05/23/2024 3:30 PM TRANSMISSION ENGINEER Office Visit [facility] [address] [place] [address] Jyoti Escobar MD [address] [place] [address] documented as of this encounter Visit Diagnoses Diagnosis Status post revision of total replacement of right knee- Primary documented in this encounter Care Teams Gas Turbine Mechanic Relationship Specialty Start Date End Date Vernon Mercedes MD [address] [place] [address] PCP - General FAMILY PRACTICE 10/27/15 12/02/21 Evaristo Allan MD [address] [place] [address] [place] Seasonal Warehouse Associate CARDIOVASCULAR DISEASE 08/19/16 Raul Santana MD [address] [place] [address] CLINICAL CARDIAC ELECTROPHYSIOLOGY 06/16/17 Danny Blackwell MD [address] [place] [address] ORTHOPAEDIC SURGERY 05/01/19 documented as of this encounter
--- OUTSIDE RECORDS SUMMARY | 2024-04-23 04:26 | XMS_ITS | Encounter Summary ---
Author Organization [facility] Address [address] [place] [address]. [place], [place] [address] [place] [address] Care Team Providers Care Hotel Engineer Name Role Phone Vernon Mercedes MD Primary Care Provider [phone] Evaristo Allan MD Unavailable Unavailabl Raul Duran MD Unavailable Unavailabl Danny Lopes MD Unavailable [phone] Encounter Details Date Type Department Care Team (Latest Contact Info) Description 12/31/2019 Travel Social History Tobacco Use Types Packs/Day [...] st Contact Info) Description 04/25/2024 11:00 AM PRODUCTION SUPERVISOR Appointment [facility] [address] [place] [address] Ti Bonilla MD [address] [place] [phone] 05/23/2024 3:30 PM PRODUCTION SUPERVISOR Office Visit [facility] [address] [place] [phone] Jyoti Escobar MD [address] [place] [phone] documented as of this encounter Visit Diagnoses Not on filedocumented in this encounter Care Teams Hotel Engineer Relationship Specialty Start Date End Date Vernon Mercedes MD [address] [place] [phone] PCP - General FAMILY PRACTICE 10/27/15 12/02/21 [place] [address] [place] [employer] Truck Driver CARDIOVASCULAR DISEASE 08/19/16 Raul Santana MD [address] [place] [address] CLINICAL CARDIAC ELECTROPHYSIOLOGY 06/16/17 Danny Blackewll MD [address] [place] [address] ORTHOPAEDIC SURGERY 05/01/19 documented as of this encounter
--- OUTSIDE RECORDS SUMMARY | 2024-04-23 04:26 | XMS_ITS | Encounter Summary ---
Author Organization [facility] Address [address] [place] [address]. 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 Not on [...] st Contact Info) Description 04/25/2024 11:00 AM RECEPTION SPECIALIST Appointment [facility] [address] [place] [address] Ti Bonilla MD [address] [place] [phone] 05/23/2024 3:30 PM RECEPTION SPECIALIST [facility] [address] [place] [address] Jyoti Escobar MD [address] [place] [phone] documented as of this encounter Visit Diagnoses Diagnosis Status post revision of total replacement of right knee- Primary documented in this encounter Care Teams Utility Worker Driver Relationship Specialty Start Date End Date Vernon Mercedes MD [address] [place] [address] PCP - General FAMILY PRACTICE 10/27/15 12/02/21 [place] [address] [place] [address] Of [address] CARDIOVASCULAR DISEASE 08/19/16 Raul Santana MD [address] [place] [address] CLINICAL CARDIAC ELECTROPHYSIOLOGY 06/16/17 Danny Blackwell MD [address] [place] [address] ORTHOPAEDIC SURGERY 05/01/19 Gayle Arce, TRAVEL SERVICE CONSULTANT, POKER ROOM MANAGER-C [address] [facility] [address] [place] [phone] NURSE PRACTITIONER 03/03/20 documented as of this encounter
--- OUTSIDE RECORDS SUMMARY | 2024-04-23 04:26 | XMS_ITS | Encounter Summary ---
Author Organization [facility] Address [address] [place] [address]. [place] [address] [place] [address] Care Team Providers Care Round Cutter Operator Name Role Phone Vernon Mercedes MD Primary Care Provider [phone] Evaristo Allan MD Unavailable Unavailabl Raul Duran MD Unavailable Unavailabl Danny Lopes MD Unavailable [phone] Jolynn Arias APRN, DEBRIDGING MACHINE OPERATOR-C Unavailable Reason for Visit * Reason Onset Date Comments Results 03/25/2020 Encounter Details Date Type Department Care Team ([facility] Contact Info) Description 03/25/2020 Telephone [facility] [address] [place] [address] Jolynn Arias APRN, DEBRIDGING MACHINE OPERATOR-C [address] [facility] [address] [place] [address] Results Social History Tobacco Use [...] COVID-19? No / Unsure 03/06/2020 10:30 AM SURGICAL FORCEPS FABRICATOR documented as of this encounter Functional Status [...] Assessment Author Status No 10/15/2019 4:47 PM CDKaylyn Morales RN Active documented as of this encounter Mental Status * Because of a physical, mental, or emotional condition, do you have serious difficulty concentrating, remembering, or making decisions? Answer Entry Date Author Status No 10/15/2019 4:47 PM Kaylyn Rodriguez RN Active documented in this encounter Progress Notes * Jolynn Arias APRN, NP-C - 03/31/2020 1:38 PM CSTAddended by: JOLYNN ARIAS on: 03/31/2020 01:38 PM Modules accepted: Orders ICAL FORCEPS FABRICATOR * Jolynn Arias APRN, NP-C - 03/31/2020 1:38 PM CST Returned call to Mr. Zelaya. He is still feeling lightheaded with no energy. BP has been low. I instructed him to decrease his spironolactone from 25 mg to 12.5 mg daily and call the office with an update in one week. If he continues to have symptoms, we may consider stress testing. He v/u. ICAL FORCEPS FABRICATOR * Jolynn Arias APRN, NP-C - 03/31/2020 1:01 PM CST Can decrease spironolactone from 25 mg to 12.5 mg daily to see if we can improve BP. Call back withupdate in a week. ICAL FORCEPS FABRICATOR * Sariah Milian RN - 03/28/2020 1:30 PM CST Pt called back. He is still dizzy at times but this has improved. BP running about 90/60. States he is a little better but not real good Please call him with recommendations. ICAL FORCEPS FABRICATOR * Emma Zepeda - 03/27/2020 3:12 PM CST DATE/TIME:03/27/20 at 2:14 pm CALLER: pt PT NAME/:pt PH #: [phone] PROVIDER/NEW PT: Yazmin REASON FOR CALL: left: Returning Angela's call. He did not leave his phone number. ENCOUNTER NOTE SENT TO: Yazmin nurse everton ICAL FORCEPS FABRICATOR * Angela Clay RN - 03/27/2020 8:10 AM CST Still unable to reach pt to discuss results. Letter sent. ICAL FORCEPS FABRICATOR * Angela Clay RN - 03/26/2020 2:33 PM CST Attempted to reach pt again to discuss results. LMTC back. ICAL FORCEPS FABRICATOR * Angela Clay RN - 03/25/2020 4:33 PM CST Phoned pt to discuss results. LMTC back. ICAL FORCEPS FABRICATOR * Angela Clay RN - 03/25/2020 4:32 PM CST ----- Message from Jolynn Arias APRN, NP-C sent at 03/24/2020 8:43 PM SURGICAL FORCEPS FABRICATOR ----- No atrial fibrillation. His heart rate is still high and he has episodes of sinus tach. How is his BP and dizziness doing? If he is feeling better, could consider increasing metoprolol. ICAL FORCEPS FABRICATOR documented in this encounter Plan of Treatment Upcoming Encounters Date Type Department Care Team (Late st Contact Info) Description 04/25/2024 11:00 AM SURGICAL FORCEPS FABRICATOR Appointment [facility] [address] [place], [place] [phone] Ti Bonilla MD [address] [place] [phone] 05/23/2024 3:30 PM SURGICAL FORCEPS FABRICATOR Office Visit [facility] [address] [place] [address] Jyoti Escobar MD [address] [place] [address] documented as of this encounter Visit Diagnoses Not on filedocumented in this encounter Care Teams Round Cutter Operator Relationship Specialty Start Date End Date Vernon Mercedes MD [address] [place] [address] PCP - General FAMILY PRACTICE 10/27/15 12/02/21 Evaristo Allan MD [address] [place] [address] [place] Time Clerk CARDIOVASCULAR DISEASE 08/19/16 [place] [address] [place] [address] [place] [address] CLINICAL CARDIAC ELECTROPHYSIOLOGY 06/16/17 Danny Blackwell MD [address] [place] [address] ORTHOPAEDIC SURGERY 05/01/19 Jolynn Arias, PIT FURNACE OPERATOR, DEBRIDGING MACHINE OPERATOR-C [address] [facility] [address] [place] [phone] NURSE PRACTITIONER 03/03/20 documented as of this encounter
--- OUTSIDE RECORDS SUMMARY | 2024-04-23 04:26 | XMS_ITS | Encounter Summary ---
Author Organization [facility] Address [address] [place] [address]. [place] [address] [place] [address] Care Team Providers Care Home Care Coordinator Name Role Phone Ton Delgado MD Primary Care Provider [phone] Evaristo Allan MD Unavailable Unavailabl Raul Duarn MD Unavailable Unavailabl Danny Lopes MD Unavailable [phone] Gayle Arce APRN, NP-C Unavailable [phone] Reason for Referral * (Routine) - Closed Specialty Diagnoses / Procedures Referred By Contac t Referred To Contact Diagnoses Postural dizziness with near syncope Paroxysmal atrial fibrillation ([facility]) Procedures CLINIC - HOLTER MONITOR - ECG UP TO 48 HRS,COMPLETE Gayle Arce APRN, NP-C [address] [facility] [address] [place] [address] Phone: tel: fax: Referral ID Status Reason Start Date Expiration Date Visits Re quested Visits Authorized [id number] Closed 03/06/2020 04/05/2021 1 1 CIATE VICE PRESIDENT Reason for Visit * Reason Comments Follow Up Lightheadedness Encounter Details Date Type Department Care Team ([facility] st Contact Info) Description 03/06/2020 10:30 AM ASSOCIATE VICE PRESIDENT Office Visit [facility] [address] [place] [address] Gayle Arce, BARBARA, EMERGENCY MANAGER-C [address] [address] Follow Up (Lightheadedness) Social History Tobacco Use Types Packs/Day Years [...] 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 No / Unsure 03/06/2020 10:30 AM ASSOCIATE VICE PRESIDENT documented as of this encounter Last Filed Vital Signs Vital Sign Reading Time Taken Comments Blood Pressure 124/78 03/06/2020 10:41 AM ASSOCIATE VICE PRESIDENT Pulse 90 03/06/2020 10:41 AM ASSOCIATE VICE PRESIDENT Temperature - - Respiratory Rate 16 03/06/2020 10:41 AM ASSOCIATE VICE PRESIDENT Oxygen Saturation - - Inhaled Oxygen Concentration - - Weight 122 kg (269 lb) 03/06/2020 10:41 AM ASSOCIATE VICE PRESIDENT Height 177.8 cm (5' 10 ) 03/06/2020 10:41 AM ASSOCIATE VICE PRESIDENT Body Mass Index 38.6 03/06/2020 10:41 AM ASSOCIATE VICE PRESIDENT documented in this encounter Functional Status * [...] Rodriguez RN Active documented in this encounter Patient Instructions * Patient Instructions* Gayle Arce APRN, NP-C - 03/06/2020 10:30 AM ASSOCIATE VICE PRESIDENT 1. Stop isosorbide. 2. If dizziness continues, cut spironolactone in half to take 12.5 mg daily. 3. Compression stockings. 4. Monitor. CIATE VICE PRESIDENT documented in this encounter Progress Notes * Gayle Arce APRN, NP-C - 03/06/2020 10:30 AM CST FROM: Gayle Arce APRN, NP-C, collaborating physician Evaristo Allan III, M.D. RE: Evaristo Zelaya : 1960 Reason for Visit: Follow Up (Lightheadedness) History of Present Illness: Mr. Zelaya is a pleasant 60-year-old male seen in the cardiology clinic today for a followup visit regarding lightheadedness and hypotension. He has a history of coronary artery disease s/p COOK TACO PCI on03/24/18, atrial fibrillation s/p ablation in 2017, hypertension, hyperlipidemia, diabetes, and sleep apnea. He was seen on 02/21/2020 for the same issue, and his isosorbide was decreased from 30 mg to15 mg daily. His blood pressure improved slightly, but he still has numerous readings in the 90s mmHg systolic, and remains lightheaded. He denies any anginal chest pain, shortness of breath, or dyspnea upon exertion. He denies any claudication. He denies any overt symptoms of congestive heart failure such as paroxysmal nocturnal dyspnea, orthopnea, or worsening pedal edema. He reports good CPAP compliance. He has continued to have issues with lightheadedness. This is the worst when he is rising from a seated position. He will then have to sit down and rest for approximately 5 minutes for the sensation to resolve. He denies any syncope since his last visit. He has been having palpitations, which feel like his previous atrial fibrillation. He denies signs and symptoms of CVA or TIA. He seems to be tolerating his present medica tions well without reported side effects. He denies signs of bleeding. Recommendations/Plan: Mr. Zelaya continues to have issues with lightheadedness and hypotension. His heart rate has improved slightly since returning to his original metoprolol dosage. However, he now reports similar palpitations as he had with his atrial fibrillation in the past. Continued medication adjustment and evaluation of his underlying rhythm seem most appropriate at the present time. I have recommended the following to Mr. Zelaya: 1. History of Hypertension, Hypotension, Lightheadedness, CAD. He denies any symptoms consistent with myocardial ischemia. He has not had had any issues with chest pain since decreasing his Imdur. Atthis point, I instructed him to discontinue the Imdur. I have given him an order for compression stockings to be worn through the day. I have also encouraged him to increase his fluid intake when he has days of significant lightheadedness. If discontinuing the Imdur does not improve his symptoms, he may then decrease his spironolactone from 25 mg to 12.5 mg daily. 2. History of Atrial Fibrillation. He has increased his metoprolol back to 50 mg daily. He remains tachycardic and has now had episodes that he believes are atrial fibrillation. We will apply a 48-hour Holter monitor. He is anticoagulated with Pradaxa. We will plan to see Mr. Zelaya in one year pending his clinical course. I have encouraged him to contact me in the meantime should he have any questions or problems. Medications: Current Outpatient Medications: ??? COMPRESSION STOCKINGS, 20-30 mmhg by Does not apply route daily., Disp: 1 Container, Rfl: 1 ??? amitriptyline 50 MG tablet, Take 50 [...] daily. , Disp: , Rfl: ??? famotidine 20 MG tablet, Take 2 tablets by mouth 2 (two) times a day., Disp: , Rfl: ??? furosemide 20 MG tablet, Take 20 mg by mouth daily. , Disp: , Rfl: ??? gabapentin 300 MG capsule, Take 300 mg by mouth 3 (three) times daily. , Disp: , Rfl: ??? LEVEMIR 100 UNIT/ML injection, Inject 32 Units into the skin nightly at bedtime. , Disp: , Rfl: ??? metFORMIN 850 MG tablet, Take 850 mg by mouth 3 (three) times a day. , Disp: , Rfl: ??? metoprolol succinate ER 50 MG 24 hr tablet, Take 50 mg by mouth daily. , Disp: , Rfl: ??? nitroglycerin 0.4 [...] CATHETERIZATION 01/04/2018 occluded prox RCA w/well developed [id number] collaterals lvef 55-60% ??? CARDIAC CATHETERIZATION 11/13/2018 ??? FRACTURE SURGERY ??? 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 HERNIA REPAIR ??? KNEE ARTHROPLASTY Bilateral ??? LITHOTRIPSY ??? XA ABLATION 05/19/2016 ??? XA CORONARY INTERVENTION 03/24/2018 COOK TACO PCI-mid RCA Social History Tobacco Use ??? [...] MGM Review of Systems Constitutional: Positive for fatigue. Negative for recent unintentional weight gain and recent unintentional weight loss. HENT: Negative for new or significant hearing loss. Eyes: Negative for blurred vision and double vision. Respiratory: Negative for cough, new or significant shortness of breath and snoring. Cardiovascular: See HPI. Positive for palpitations and leg swelling. Gastrointestinal: Negative for blood in stool and melena. Genitourinary: Negative for dysuria. Musculoskeletal: Negative for myalgias and new or worsening joint stiffness/pain. Skin: Negative for rash. Neurological: Positive for dizziness. Negative for tingling/numbness and focal weakness. Endo/Heme/Allergies: Negative for new or significant bruising/bleeding and polydipsia. Psychiatric/Behavioral: Negative for depression and new or significant memory loss. Vitals: 03/06/20 1041 BP: 124/78 Patient Position: Sitting BP Location: Right arm Pulse: 90 Weight: 122 kg (269 lb) Height: 5' 10 (1.778 m) Body mass index is 38.6 kg/m??. Cardiac Exam Rate/Rhythm: Normal rate and [...] Alert. Oriented x 3. Comments: Diagnoses/Impression: 1. Postural dizziness with near syncope COMPRESSION STOCKINGS CLINIC - HOLTER MONITOR - ECG UP TO 48 HRS,COMPLETE 2. Hypotension, unspecified hypotension type 3. Coronary artery disease involving walker river coronary artery of walker river heart without angina pectoris 4. Paroxysmal atrial fibrillation (CMS/HCC) CLINIC - HOLTER MONITOR - ECG UP TO 48 HRS,COMPLETE [place] Documentation Completed: Coronary Artery Disease Referring Provider: Ton Delgado MD PCP: TON DELGADO MD CIATE VICE PRESIDENT documented in this encounter Plan of Treatment Upcoming Encounters Date Type Department Care Team (Late st Contact Info) Description 04/25/2024 11:00 AM ASSOCIATE VICE PRESIDENT Appointment [facility] [address] [place] [address] Ti Bonilla MD [address] [place] [phone] 05/23/2024 3:30 PM ASSOCIATE VICE PRESIDENT Office Visit [facility] [address] [place] [phone] Jyoti Escobar MD [address] [place] [address] documented as of this encounter Procedures Procedure Name Priority Date/Time Associated Diagnosis Comments XTRNL ECG REC<48 HRS RECORDING SCAN A/R R&I Routine 03/21/2020 7:05 AM ASSOCIATE VICE PRESIDENT Postural dizziness with near syncope Paroxysmal atrial fibrillation ([facility]) documented in this encounter Results * CLINIC - HOLTER MONITOR - ECG UP TO 48 HRS,COMPLETE (03/21/2020 7:05 AM ASSOCIATE VICE PRESIDENT) 03/21/2020 7:05 AM ASSOCIATE VICE PRESIDENT Narrative ESCRIPTION - 03/21/2020 5:32 PM ASSOCIATE VICE PRESIDENT DATE OF ENROLLMENT: ??03/06/2020 DATE OF TERMINATION: ??03/08/2020 IMPRESSIONS: 1. ??The baseline rhythm is sinus with an average heart rate of 91 beats per minute. ??The minimum heart rate was sinus rhythm at 70 beats per minute. 2. ??Occasional supraventricular ectopic beats were noted (less than 1%). ?? Two 3-4 beat runs of supraventricular tachycardia were identified. ??The other episodes of tachycardia seemed to be consistent with sinus tachycardia versus an atrial tachycardia with the maximum heart rate 133 beats per minute. ??No definite episodes of atrial fibrillation or atrial flutter were identified. ??No pauses of 2.0 seconds or greater were noted. 3. ??Rare ventricular ectopic beats. ??No ventricular tachycardia was identified. 4. ??The recorded symptom of tired occurred during normal sinus rhythm at 94 beats per minute. Dictated by Evaristo Allan MD D: ??03/21/2020 07:05 AM #[id number] T: ??03/21/2020 10:16 AM /TC Gayle Arce APRN, EMERGENCY MANAGER-C PROCEDURES Final Result ESCRIPTION documented in this encounter Visit Diagnoses Diagnosis Postural dizziness with near syncope- Primary Hypotension, unspecified hypotension type Coronary artery disease involving walker river coronary artery of walker river heart without angina pectoris Paroxysmal atrial fibrillation ([facility]) Atrial fibrillation documented in this encounter Care Teams Home Care Coordinator Relationship Specialty Start Date End Date Ton Delgado MD [address] [place] [address] PCP - General FAMILY PRACTICE 10/27/15 12/02/21 Evaristo Allan MD [address] [place] [address] [employer] Worker CARDIOVASCULAR DISEASE 08/19/16 Raul Santana MD [facility] [place] [address] CLINICAL CARDIAC ELECTROPHYSIOLOGY 06/16/17 Danny Blackwell MD [address] [place] [address] ORTHOPAEDIC SURGERY 05/01/19 Gayle Arce APRN, EMERGENCY MANAGER-C [address] [facility] [address] [place] [address] NURSE PRACTITIONER 03/03/20 documented as of this encounter
--- OUTSIDE RECORDS SUMMARY | 2024-04-23 04:26 | XMS_ITS | Encounter Summary ---
Author Organization [facility] Address [address] [place] [address]. 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 file Not [...] st Contact Info) Description 04/25/2024 11:00 AM TECHNICAL SALES ENGINEER Appointment [facility] [address] [place] [address] Ti Bonilla MD [address] [place] [phone] 05/23/2024 3:30 PM TECHNICAL SALES ENGINEER Office Visit [facility] [address] [place] [phone] Jyoti Escobar MD [address] [place] [phone] documented as of this encounter Visit Diagnoses Not on filedocumented in this encounter Care Teams Revising Clerk Relationship Specialty Start Date End Date Vernon Mercedes MD [address] [place] [phone] PCP - General FAMILY PRACTICE 10/27/15 12/02/21 [place] [address] [place] Home Service Technician CARDIOVASCULAR DISEASE 08/19/16 Raul Santana MD [address] [place] [address] CLINICAL CARDIAC ELECTROPHYSIOLOGY 06/16/17 Danny Blackwell MD [address] [place] [address] ORTHOPAEDIC SURGERY 05/01/19 documented as of this encounter
--- OUTSIDE RECORDS SUMMARY | 2024-04-23 04:26 | XMS_ITS | Encounter Summary ---
Author Organization [facility] Address [address] [place] [address]. 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 No / Unsure 03/06/2020 10:30 AM OFFLINE EDITOR documented as of this encounter Functional Status [...] st Contact Info) Description 04/25/2024 11:00 AM OFFLINE EDITOR Appointment [facility] [address] [place] [address] Ti Bonilla MD [address] [place] [phone] 05/23/2024 3:30 PM OFFLINE EDITOR Office Visit [facility] [address] [place] [address] Jyoti Escobar MD [address] [place] [address] documented as of this encounter Visit Diagnoses Not on filedocumented in this encounter Care Teams Auction Clerk Relationship Specialty Start Date End Date Vernon Mercedes MD [address] [place] [address] PCP - General FAMILY PRACTICE 10/27/15 12/02/21 [place] [address] [employer] Teacher CARDIOVASCULAR DISEASE 08/19/16 Raul Santana MD [address] [place] [address] CLINICAL CARDIAC ELECTROPHYSIOLOGY 06/16/17 Danny Blackwell MD [address] [place] [address] ORTHOPAEDIC SURGERY 05/01/19 Gayle Arce, TEENAGE BABYSITTER, GYROSCOPE REPAIRER-C [address] [facility] [address] [place] [phone] NURSE PRACTITIONER 03/03/20 documented as of this encounter
--- OUTSIDE RECORDS SUMMARY | 2024-04-23 04:26 | XMS_ITS | Encounter Summary ---
Author Organization [facility] Address [address] [place] [address]. 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 on file [...] Date Author Status No 10/15/2019 4:47 PM Kalyyn Rodriguez RN Active documented in this encounter Plan of Treatment Upcoming Encounters Date Type Department Care Team (Late st Contact Info) Description 04/25/2024 11:00 AM EXECUTIVE DIRECTOR Appointment [facility] [address] [place] [address] Ti Bonilla MD [address] [place] [phone] 05/23/2024 3:30 PM EXECUTIVE DIRECTOR Office Visit [facility] [address] [place] [phone] Jyoti Escobar MD [address] [place] [phone] documented as of this encounter Visit Diagnoses Not on filedocumented in this encounter Care Teams Log Preparer Relationship Specialty Start Date End Date Vernon Mercedes MD [address] [place] [phone] PCP - General FAMILY PRACTICE 10/27/15 12/02/21 [place] [address] [place] Chief Operations Officer CARDIOVASCULAR DISEASE 08/19/16 Raul Santana MD [address] [place] [address] CLINICAL CARDIAC ELECTROPHYSIOLOGY 06/16/17 Danny Blackwell MD [address] [place] [address] ORTHOPAEDIC SURGERY 05/01/19 documented as of this encounter
--- OUTSIDE RECORDS SUMMARY | 2024-04-23 04:26 | XMS_ITS | Encounter Summary ---
Author Organization [facility] Address [address] [place] [address]. [place] [address] [place] [address] Care Team Providers Care Outpatient Psychiatrist Name Role Phone Vernon Mercedes MD Primary Care Provider [phone] Evaristo Allan MD Unavailable Unavailabl Raul Duran MD Unavailable Unavailabl Danny Lopes MD Unavailable [phone] Gayle Arce APRN, INTERNAL COMBUSTION ENGINE INSPECTOR-C Unavailable Encounter Details Date Type Department Care Team (Late st Contact Info) Description 04/25/2020 Transcribe Orders [facility] Pre Access Team [address] [place] [address] Vernon Mercedes MD [address] [facility] [place] [address] Social History Tobacco Use Types [...] 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 [...] st Contact Info) Description 04/25/2024 11:00 AM GAS TESTER Appointment [facility] [address] [place] [address] Ti Bonilla MD [address] [place] [phone] 05/23/2024 3:30 PM GAS TESTER Office Visit [facility] [address] [place] [address] Jyoti Escobar MD [address] [place] [address] documented as of this encounter Visit Diagnoses Diagnosis Sleep apnea- Primary Unspecified sleep apnea documented in this encounter Care Teams Outpatient Psychiatrist Relationship Specialty Start Date End Date Vernon Mercedes MD [address] [place] [address] PCP - General FAMILY PRACTICE 10/27/15 12/02/21 Evaristo Allan MD [address] [place] [address] [place] Patient Care Nursing Assistant CARDIOVASCULAR DISEASE 08/19/16 Raul Santana MD [address] [place] [address] CLINICAL CARDIAC ELECTROPHYSIOLOGY 06/16/17 Danny Blackwell MD [address] [place] [address] ORTHOPAEDIC SURGERY 05/01/19 Gayle Arce APRN, INTERNAL COMBUSTION ENGINE INSPECTOR-C [address] [facility] [address] [place] [address] NURSE PRACTITIONER 03/03/20 documented as of this encounter
--- OUTSIDE RECORDS SUMMARY | 2024-04-23 04:26 | XMS_ITS | Encounter Summary ---
Author Organization [facility] Address [address] [place] [address]. [place], [place] [address] [place] [address] Care Team Providers Care Archival Studies Professor Name Role Phone Vernon Mercedes MD Primary Care Provider [phone] Evaristo Allan MD Unavailable UnavailRaul Suresh MD Unavailable Unavailabl Danny Lopes MD Unavailable [phone] Encounter Details Date Type Department Care Team (Late st Contact Info) Description 01/11/2020 Orders Only [facility] [address], [address] [address] Danny Blackwell MD [address] [place] [address] Social History Tobacco Use Types Packs/Day [...] st Contact Info) Description 04/25/2024 11:00 AM BOX SEALING INSPECTOR Appointment [facility] [address] [place] [address] [place] [address] Ti Bonilla MD [address] [place] [phone] 05/23/2024 3:30 PM BOX SEALING INSPECTOR Office Visit [facility] [address] [place] [phone] Jyoti Escobar MD [address] [place] [phone] documented as of this encounter Results * XR KNEE STAND [...] of total replacement of right knee- Primary Status post revision of total replacement of right knee documented in this encounter Care Teams Archival Studies Professor Relationship Specialty Start Date End Date [place] [place] [phone] PCP - General FAMILY PRACTICE 10/27/15 12/02/21 [place]var[place] [place] [phone] [facility] Support Specialist CARDIOVASCULAR DISEASE 08/19/16 Raul Santana MD [address] [place] [phone] CLINICAL CARDIAC ELECTROPHYSIOLOGY 06/16/17 Danny Blackwell MD [address] [place], [place] [phone] ORTHOPAEDIC SURGERY 05/01/19 documented as of this encounter
--- OUTSIDE RECORDS SUMMARY | 2024-04-23 04:26 | XMS_ITS | Encounter Summary ---
Author Organization [facility] [place] [facility] Address [address] [place] [address]. [place], [place] [address] [place] [address] Care Team Providers Care Ediphone Operator Name Role Phone Vernon Mercedes MD Primary Care Provider [phone] Evaristo Allan MD Unavailable UnavailRaul Suresh MD Unavailable Unavailabl Danny Lopes MD Unavailable [phone] Reason for Visit * Physical Medicine (Routine) - Closed Specialty Diagnoses / Procedures Referred By Charito ledbetter Referred To Contact PHYSICAL THERAPY Diagnoses Prosthetic joint implant failure, subsequent encounter Aftercare following right knee joint replacement surgery Dari Piña FNP-BC [address] [place] [address] Phone: tel: fax: Referral ID Status Reason Start Date Expiration Date V isits Requested Visits Authorized [id number] Closed Physical Therapy 10/16/2019 11/14/2020 60 60 Encounter Details Date Type Department Care Team (Late st Contact Info) Description 12/21/2019 10:15 AM CDT - 12/21/2019 11:59 PM T Hospital Encounter [facility] [address] [place] [address] Dari Piña FNP-BC [address] [place] [address] Keiry Naranjo, SLAG PRODUCTION WORKER [address] [place] [address] Discharge Disposition: Home or Self Care (Routine [...] 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 09/09/202 4 documented as of this encounter Progress Notes * Keiry Naranjo, SLAG PRODUCTION WORKER - 12/21/2019 10:23 AM CDT [facility] PHYSICAL THERAPY TREATMENT NOTE Time In: 1015 Time Out: 1108 Total Time: 53 minutes Name: Evaristo Zelaya : 1960 Past [...] CATHETERIZATION 01/04/2018 occluded prox RCA w/well developed xels-hh-ujcwl collaterals lvef 55-60% ??? CARDIAC CATHETERIZATION 11/13/2018 ??? FRACTURE SURGERY ??? 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 HERNIA REPAIR ??? KNEE ARTHROPLASTY Bilateral ??? LITHOTRIPSY ??? XA ABLATION 05/19/2016 ??? XA CORONARY INTERVENTION 03/24/2018 STEAM AND POWER SUPERVISOR PCI-mid RCA Subjective: Diagnosis: R TKA Referring Physician: ISAURO Sarah Onset Date: 10/15/19 Treatment Day: Total Approved Visits: 60 Therapy Plan of Care: 3x/wk for 4 wks Subjective Note: Patient feels his bending and moving get better every day. Patient states he stillstruggles lifting his leg for things such as getting in the car. Location of Pain: R knee Pre-treatment Pain: 10 Post-treatment Pain: /10 Restriction/Precaution: WBAT Objective: Treatment Performed: Therapeutic Exercise - 09488 Minutes Performed: 53 minutes Intervention: - Nustep WL2 x6 mins UE/LE 3# cuff weight on during standing activity: N- weighted hip kicks abd/flx N- weighted marching - Step Ups 8 x15 fw (moderate cueing for conscious foot placement/prevention of ER) - Second step hamstring/knee flexion stretch 10/10 N- Seated SLR x10 - SAQ 3# x20 - SLR x20 Manual Therapy - 77968 Minutes Performed: 0' Intervention: HELD- IASTM to R quad Neuromuscular Reeducation - 94718 Minutes Performed: 0' Intervention: - Tandem Balance x1 min anya. x2 - Foam balance NBOS x1 min Therapeutic Activities - 98560 Minutes Performed: N- Sit to stand x10 Modalities Minutes Performed: 0' Intervention: HELD- gameready to R knee x 15 min Total Treatment Time: 54 minutes Education Performed: Encouraged patient to cont. HEP as instructed. ASSESSMENT: Patient struggled quite a bit with sit to stand transfers even with UE assist. Patient was able to complete all reps with extended time. Improved ability to lift LE in seated position. PLAN: Plan for next visit: Continue range [...] Contact Info) Description 04/25/2024 11:[address] [facility] [address] [place], [place] [phone] Ti Bonilla MD [address] [place] [phone] 05/23/2024 3:30 PM MANAGER RADIO Office Visit [facility] [address] [place] [phone] Jyoti Escobar MD [address] [place] [phone] documented as of this encounter Visit Diagnoses Diagnosis Status post revision of total replacement of right knee documented in this encounter Care Teams Ediphone Operator Relationship Specialty Start Date End Date Vernon Mercedes MD [address] [place] [phone] PCP - General FAMILY PRACTICE 10/27/15 12/02/21 Evaristo Allan MD [address] [place] [address] [place] Educational Adviser CARDIOVASCULAR DISEASE 08/19/16 Raul Santana MD [address] [place] [address] CLINICAL CARDIAC ELECTROPHYSIOLOGY 06/16/17 Danny Blackwell MD [address] [place], [place] [phone] ORTHOPAEDIC SURGERY 05/01/19 documented as of this encounter
--- OUTSIDE RECORDS SUMMARY | 2024-04-23 04:26 | XMS_ITS | Encounter Summary ---
Author Organization [facility] Address [address] [place] [address]. 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 * Sariah Aly RN - 02/15/2020 11:44 AM CDT Pt called to reschedule his apt he missed on jan 30 with Gayle Arce NP Pt rescheduled for Feb 20 at 9:00 am at [facility] with Katerin Arce NP, pt aware of covid restrictions Pt is having problems with low blood pressure for a while Feb 13 98/66 HR 115 and 106/64 HR 102 Pt says when he is up and about it goes down (he gets dizzy & lightheaded with the low BP,,,, but after sits down it goes back to normal Pt has no vitals today due to feeling okay Pt is going to back to all his readings, he will have to print them out to tell Gayle SCHROEDER Call [facility] [phone] Mercedes wants him to take 1/2 of his metoprolol dose (25 mg daily) pt talked to him on Feb 07 Pt says with the lower it has not helped his BP issue * Sariah Aly RN - 01/28/2020 2:32 PM CDT Pt called states his feet has been swelling for the last 2 months and he has been dizzy 3-4 months Pt calling for an apt with Gayle SCHROEDER or Dr Allan REFERRAL/PCP: cali Mercedes calling himself INSURANCE bcbs PROVIDER: Katerin Arce NP APPT DATE/TIME: Jan 30 at 9:30 at [facility] TESTING NEEDED/SCHEDULED:no COVID+TEST OR EXPOSURE IN LAST 14 DAYS: no RECORDS NEEDED:no MYCHART OFFERED: no LETTER/WS SENT: no CARE TEAM: yes Pt aware to bring med list and bring list of BP readings he did not have them at the time of the call he v/u documented in this encounter Plan of Treatment Upcoming Encounters Date Type Department Care Team (Late st Contact Info) Description 04/25/2024 11:00 AM CHIEF AIRLINE RADIO OPERATOR Appointment [facility] [place] [address] Ti Bonilla MD [address] [place] [phone] 05/23/2024 3:30 PM CHIEF AIRLINE RADIO OPERATOR Office Visit [facility] [address] [place] [address] Jyoti Escobar MD [address] [place] [phone] documented as of this encounter Visit Diagnoses Not on filedocumented in this encounter Care Teams Warehouse Incentive Selector Relationship Specialty Start Date End Date Vernon Mercedes MD [facility] [place] [phone] PCP - General FAMILY PRACTICE 10/27/15 12/02/21 Evaristo Allan MD [address] [place] [address] [place] Collar Starcher CARDIOVASCULAR DISEASE 08/19/16 Raul Santana MD [address] [place] [address] CLINICAL CARDIAC ELECTROPHYSIOLOGY 06/16/17 Danny Blackwell MD [address] [facility] [place] [address] ORTHOPAEDIC SURGERY 05/01/19 documented as of this encounter
--- OUTSIDE RECORDS SUMMARY | 2024-04-23 04:26 | XMS_ITS | Encounter Summary ---
Author Organization [facility] Address [address] [place] [address]. [place] [address] [place] [address] Care Team Providers Care Epic Beacon Analyst Name Role Phone Ton Delgado MD Primary Care Provider [phone] Evaristo Allan MD Unavailable Unavailabl Raul Duran MD Unavailable Unavailabl Danny Lopes MD Unavailable [phone] Reason for Visit * Reason Comments Follow Up Dizziness Encounter Details Date Type Department Care Team (Late st Contact Info) Description 02/21/2020 9:00 AM KEY CUTTER Office Visit [facility] [address] [place] [address] Gayle Arce, BARBARA, AUTOMOTIVE WHOLESALE PARTS ADVISOR-C [address] [facility] [address] [place] [address] Follow Up; Dizziness Social History [...] 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 No / Unsure 02/21/2020 8:45 AM KEY CUTTER documented as of this encounter Last Filed Vital Signs Vital Sign Reading Time Taken Comments Blood Pressure 104/78 02/21/2020 9:01 AM KEY CUTTER Pulse 100 02/21/2020 9:01 AM KEY CUTTER EKG Temperature - - Respiratory Rate 16 02/21/2020 9:01 AM KEY CUTTER Oxygen Saturation - - Inhaled Oxygen Concentration - - Weight 122.1 kg (269 lb 3.2 oz) 02/21/2020 9:01 AM KEY CUTTER Height 177.8 cm (5' 10 ) 02/21/2020 9:01 AM KEY CUTTER Body Mass Index 38.63 02/21/2020 9:01 AM KEY CUTTER documented in this encounter Functional Status * [...] Instructions * Patient Instructions* Gayle Arce APRN, AUTOMOTIVE WHOLESALE PARTS ADVISOR-C - 02/21/2020 9:00 AM KEY CUTTER 1. Decrease isosorbide to half a pill. Call with an update in one week. 2. At that time, we will plan to stop the isosorbide or remain on 15 mg daily based on your symptoms. At that time, I would also like to increase your metoprolol back to 50 mg daily. 3. If decreasing your isosorbide does not improve your dizziness, we will then consider decreasing your spironolactone. 4. Purchase compression stockings. 20-30 mmHg if you can find them. CUTTER documented in this encounter Progress Notes * Gayle Arce APRN, NP-C - 02/21/2020 9:00 AM CST FROM: Gayle Arce APRN, NP-C, collaborating physician Evaristo Allan III, M.D. RE: Evaristo Zelaya : 1960 Reason for Visit: Follow Up and Dizziness History of Present Illness: Mr. Zelaya is a pleasant 60-year-old male seen in the cardiology clinic today for for a followup visit regarding edema and dizziness. 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 He has been having issues with lightheadedness when rising out of the chair. He has been monitoringhis blood pressure, and has noticed that the symptoms correlate with hypotension. His home readingsrange from 80/44 to low 90s/40s mmmHg. He does have occasional higher readings when he is not feeling lightheaded. He denies any syncope. He has vomited on 3 separate episodes when he has had significant lightheadedness. He has chronic palpitations, but denies any worsening compared to his baseline. His primary care office decrease his metoprolol from 50 mg to 25 mg daily. This has not helped hislightheadedness. He denies any anginal chest pain, shortness of breath, or dyspnea upon exertion. He reports being active camping. He denies any claudication. He denies any overt symptoms of congestive heart failure such as paroxysmal nocturnal dyspnea or orthopnea. He reports good CPAP compliance.He does have issues with chronic lower extremity edema. This progresses throughout the day, and hasbeen stable over the past few months. He denies any increased dietary sodium intake or use of NSAIDs. He denies signs and symptoms of CVA or TIA. He seems to be tolerating his present medications well without reported side effects, other than his hypotension and photosensitivity. He denies signs ofbleeding. Evaluation during the clinic visit included an EKG which confirmed the presence of sinus tachycardia rhythm at a rate of 100 beats per minute with an incomplete right bundle branch block. His most recent labs from 12/12/2019 revealed WBC 7.4, hemoglobin 13.3, hematocrit 41.4, sodium 137, potassium 4.1, BUN 17, creatinine 1.26, and GFR 62. Recommendations/Plan: Mr. Zelaya' cardiac status appears clinically stable without ongoing anginal chest pain, symptoms ofcongestive heart failure, or signs of an underlying arrhythmia. However, he is having issues with lightheadedness related to his hypotension. He has been started on carbidopa-levodopa since his last visit. His metoprolol has been decreased without much improvement in his symptoms, but his heart rate is now uncontrolled. We will further adjust his medications in hopes of increasing his blood pressure. I have recommended the following to Mr. Zelaya: 1. History of Hypertension, Hypotension, Lightheadedness, Edema. I instructed him to decrease his Imdur from 30 mg to 15 mg daily. I have also recommended 20 to 30 mmHg compression stockings. He reports good fluid intake. I have asked him to continue monitoring his blood pressure, and call the office with an update in one week. At that point, if he is still having issues with dizziness, and has no t developed issues with chest pain, we can consider discontinuing the Imdur. After that, the next step would be decreasing his spironolactone if needed. I will not do this now, due to his continued issues with edema. He does not have edema upon exam today. 2. History of Atrial Fibrillation. I would like to increase his metoprolol back to 50 mg, as he is tachycardic in the office today. I will wait until he calls next week with an update on his symptoms. He is anticoagulated with Pradaxa. His lab results from 12/12/2019 did not reveal anemia. 3. CAD. He denies symptoms consistent with myocardial ischemia. We will continue current medical therapy. 4. Hyperlipidemia. He is currently treated with atorvastatin and reports no apparent side effects. We will continue to defer lipid management to Dr. Delgado. An LDL cholesterol of less than 70 is recommended. We will plan to see Mr. Zelaya in one year pending his clinical course. I have encouraged him to contact me in the meantime should he have any questions or problems. Medications: Current Outpatient Medications: ??? isosorbide mononitrate ER 30 MG 24 hr tablet, Take 0.5 tablets (15 mg total) by mouth daily., Disp: 30 tablet, Rfl: 0 ??? amitriptyline 50 MG tablet, Take 50 [...] ER 50 MG 24 hr tablet, Take 25 mg by mouth daily. , Disp: , [...] CATHETERIZATION 01/04/2018 occluded prox RCA w/well developed hbow-br-wbwbg collaterals lvef 55-60% ??? CARDIAC CATHETERIZATION 11/13/2018 ??? FRACTURE SURGERY ??? 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 HERNIA REPAIR ??? KNEE ARTHROPLASTY Bilateral ??? LITHOTRIPSY ??? XA ABLATION 05/19/2016 ??? XA CORONARY INTERVENTION 03/24/2018 CONTAINERS SALES REPRESENTATIVE PCI-mid RCA Social History Tobacco Use ??? [...] See HPI. Positive for leg swelling. Gastrointestinal: Positive for vomiting. Negative for blood in stool and melena. Genitourinary: Negative for dysuria. Musculoskeletal: Negative for myalgias and new or worsening joint stiffness/pain. Skin: Negative for rash. Neurological: Positive for dizziness. Negative for tingling/numbness and focal weakness. Endo/Heme/Allergies: Negative for new or significant bruising/bleeding and polydipsia. Psychiatric/Behavioral: Negative for depression and new or significant memory loss. Vitals: 02/21/20 0901 BP: 104/78 Patient Position: Sitting BP Location: Left arm Pulse: 100 Weight: 122.1 kg (269 lb 3.2 oz) Height: 5' 10 (1.778 m) Body mass index is 38.63 kg/m??. Cardiac Exam Rate/Rhythm: Regular rhythm. Tachycardia [...] Alert. Oriented x 3. Comments: Diagnoses/Impression: 1. Lightheadedness 2. Edema, unspecified type 3. Hypotension, unspecified hypotension type 4. Paroxysmal atrial fibrillation (CMS/HCC) 5. Coronary artery disease involving iqugmiut coronary artery of iqugmiut heart without angina pectoris PINNACLE Documentation Completed: Atrial Fibrillation Coronary Artery Disease Referring Provider: No ref. provider found PCP: TON DELGADO MD CUTTER documented in this encounter Plan of Treatment Upcoming Encounters Date Type Department Care Team (Late st Contact Info) Description 04/25/2024 11:00 AM KEY CUTTER Appointment [facility] [address] [place] [address] Ti Bonilla MD [address] [place] [phone] 05/23/2024 3:30 PM KEY CUTTER Office Visit [facility] [address] [place] [phone] Jyoti Escobar MD [address] [place] [phone] documented as of this encounter Visit Diagnoses Diagnosis Lightheadedness- Primary Dizziness and giddiness Edema, unspecified type Hypotension, unspecified hypotension type Paroxysmal atrial fibrillation (CMS/HCC HHS/HCC) Atrial fibrillation Coronary artery disease involving iqugmiut coronary artery of iqugmiut heart without angina pectoris documented in this encounter Care Teams Epic Beacon Analyst Relationship Specialty Start Date End Date Ton Delgado MD [address] [place] [phone] PCP - General FAMILY PRACTICE 10/27/15 12/02/21 Evaristo Allan MD [address] [place] [address] [place] Pouncer Machine CARDIOVASCULAR DISEASE 08/19/16 Raul Santana MD [address] [place] [address] CLINICAL CARDIAC ELECTROPHYSIOLOGY 06/16/17 Danny Blackwell MD [address] [place] [address] ORTHOPAEDIC SURGERY 05/01/19 documented as of this encounter
--- OUTSIDE RECORDS SUMMARY | 2024-04-23 04:27 | XMS_ITS | Encounter Summary ---
Author Organization [facility] Address [address] [place] [address]. [place], [place] [address] [place] [address] Care Team Providers Care Sharepoint Administrator Name Role Phone Vernon Mercedes MD Primary Care Provider Evaristo Allan MD Unavailable Unavailabl Raul Duran MD Unavailable Unavailabl Danny Lopes MD Unavailable [phone] Encounter Details Date Type Department Care Team (Latest Contact Info) Description 11/05/2019 Travel Social History Tobacco Use Types Packs/Day [...] have Coronavirus / COVID-19? No / Unsure 11/05/2019 2:14 PM CDT documented as of this encounter [...] st Contact Info) Description 04/25/2024 11:00 AM R&D ENGINEER Appointment [facility] [address] [place] [address] Ti Bonilla MD [address] [place] [phone] 05/23/2024 3:30 PM R&D ENGINEER Office Visit [facility] [address] [place] [phone] Jyoti Escobar MD [address] [place] [phone] documented as of this encounter Visit Diagnoses Not on filedocumented in this encounter Care Teams Sharepoint Administrator Relationship Specialty Start Date End Date Vernon Mercedes MD [address] [place] [phone] PCP - General FAMILY PRACTICE 10/27/15 12/02/21 [place] [phone] [place] Freight Adjuster CARDIOVASCULAR DISEASE 08/19/16 Raul Santana MD [address] [place] [address] CLINICAL CARDIAC ELECTROPHYSIOLOGY 06/16/17 Danny Blackwell MD [address] [place] [address] ORTHOPAEDIC SURGERY 05/01/19 documented as of this encounter
--- OUTSIDE RECORDS SUMMARY | 2024-04-23 04:27 | XMS_ITS | Encounter Summary ---
Author Organization [facility] Address [address] [place] [address]. [place], [place] [address] [place] [address] Care Team Providers Care Solutions Executive Security Name Role Phone Vernon Mercedes MD Primary Care Provider [phone] Evaristo Allan MD Unavailable Unavailabl Raul Duran MD Unavailable Unavailabl Danny Lopes MD Unavailable [phone] Reason for Visit * Physical Medicine (Routine) - Closed Specialty Diagnoses / Procedures Referred By Charito ledbetter Referred To Contact PHYSICAL THERAPY Diagnoses Prosthetic joint implant failure, subsequent encounter Aftercare following right knee joint replacement surgery Dari Piña FNP-BC [address] [place] [address] Phone: tel: fax: Referral ID Status Reason Start Date Expiration Date V isits Requested Visits Authorized [id number] Closed Physical Therapy 10/16/2019 11/14/2020 60 60 Encounter Details Date Type Department Care Team (Late st Contact Info) Description 11/23/2019 3:10 PM CDT - 11/23/2019 11:59 PM CDT Hospital Encounter [facility] [address] [place] [address] Dari Piña FNP-BC [address] [place] [address] Keiry Naranjo, SEWING TECHNIQUES DEMONSTRATOR [address] [place] [address] Discharge Disposition: Home or Self Care (Routine [...] 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 No / Unsure 11/23/2019 3:10 PM CDT documented as of this encounter [...] Progress Notes * Keiry Naranjo PTA - 11/23/2019 3:16 PM CDT [facility] PHYSICAL THERAPY TREATMENT NOTE Time In: 1515 Time Out: 1605 Total Time: 50 minutes Name: Evaristo Zelaya [...] CATHETERIZATION 01/04/2018 occluded prox RCA w/well developed upck-mh-clfof collaterals lvef 55-60% ??? CARDIAC CATHETERIZATION 11/13/2018 ??? FRACTURE SURGERY ??? 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 HERNIA REPAIR ??? KNEE ARTHROPLASTY Bilateral ??? LITHOTRIPSY ??? XA ABLATION 05/19/2016 ??? XA CORONARY INTERVENTION 03/24/2018 DEAN OF EDUCATION PCI-mid RCA Subjective: Diagnosis: R TKA Referring Physician: ISAURO Sarah Onset Date: 10/15/19 Treatment Day: 11 Total Approved Visits: 60 Therapy Plan of Care: 3x/wk for 4 wks Subjective Note: Patient reports his knee is doing well today and reports minimal discomfort. Patient states he has been soaking in his whirlpool tub the last couple nights and feels this is helping the pain in his thigh. Location of Pain: R knee Pre-treatment Pain: 04/27 Post-treatment Pain: /10 Restriction/Precaution: WBAT Objective: Treatment Performed: Therapeutic Exercise - 79023 Minutes Performed: 35 minutes Intervention: - Nustep WL2 x6 mins UE/LE - Slant board calf stretch x1 min x2 - Heel raises x20 (INCRSD REPS) - Hip abd/ext/flx B x 20 ea N- 6 step ups fw x15 N- 6 step ups lat. x15 - Step stretch 10/10 - Squats x 15 HELD- PROM flexion/extension - heelslide with strap x5 mins with IASTM to quad on flexion stretch HELD- DKTC on peanut ball 2x10 HELD- quad set 10 sec x10 HELD- SAQ 5 sec x 20 - SLR x10 - Supine Bridges x 20 HELD- clamshells x 20 B Manual Therapy - 73854 Minutes Performed: 0' Intervention: HELD- IASTM to R quad Neuromuscular Reeducation - 43308 Minutes Performed: Intervention: Therapeutic Activities - 13442 Minutes Performed: Modalities Minutes Performed: 15' Intervention: - gameready to R knee x 15 min Total Treatment Time: minutes Education Performed: Pt educated on the importance of HEP consistency multiple times per day to increase knee ROM. ASSESSMENT: Initiated step ups this visit for functional strengthening. Patient tolerated these very well with no c/o increase pain and minimal c/o difficulty. Improved tolerance to all ex's overall with less noted thigh pain. Patient cont. To demosntrate progression towards all goals. PLAN: Plan for next visit: Continue range of motion and strengthening. HEP: heel slide, quad set, HS stretch seated, clamshell, SAQ, SLR, bridge documented in this encounter Plan of Treatment Upcoming Encounters Date Type Department Care Team (Late st Contact Info) Description 04/25/2024 11:00 AM MASTER DYER Appointment [facility] [address] [place] [address] Ti Bonilla MD [address] [place] [phone] 05/23/2024 3:30 PM MASTER DYER Office Visit [facility] [address] [place] [phone] Jyoti Escobar MD [address] [place] [phone] documented as of this encounter Visit Diagnoses Diagnosis Status post revision of total replacement of right knee documented in this encounter Care Teams Solutions Executive Security Relationship Specialty Start Date End Date Vernon Mercedes MD [address] [place] [address] PCP - General FAMILY PRACTICE 10/27/15 12/02/21 Evaristo Allan MD [address] [place] [address] [place] [employer] Operator CARDIOVASCULAR DISEASE 08/19/16 Raul Santana MD [address] [place] [address] CLINICAL CARDIAC ELECTROPHYSIOLOGY 06/16/17 Danny Blackwell MD [address] [place] [address] ORTHOPAEDIC SURGERY 05/01/19 documented as of this encounter
--- OUTSIDE RECORDS SUMMARY | 2024-04-23 04:27 | XMS_ITS | Encounter Summary ---
Author Organization [facility] Address [address] [place] [address]. [place], [place] [address] [place] [address] Care Team Providers Care Blade Grinder Name Role Phone Vernon Mercedes MD Primary Care Provider [phone] Evaristo Allan MD Unavailable Unavailabl Raul Duran MD Unavailable Unavailabl e Danny Blackwell MD Unavailable [phone] Reason for Visit * Reason Comments Total Knee Arth * Physical Medicine (Routine) - Closed Specialty Diagnoses / Procedures Referred By Charito ledbetter Referred To Contact PHYSICAL THERAPY Diagnoses Prosthetic joint implant failure, subsequent encounter Aftercare following right knee joint replacement surgery Dari Piña FNP-ANDERSON [address] [place] [address] Phone: tel: fax: Referral ID Status Reason Start Date Expiration Date V isits Requested Visits Authorized [id number] Closed Physical Therapy 10/16/2019 11/14/2020 60 60 Encounter Details Date Type Department Care Team (Late st Contact Info) Description 11/19/2019 3:09 PM CDT - 11/19/2019 11:59 PM T Hospital Encounter [facility] [address] [place] [address] Dari Piña FNP-ANDERSON [address] [facility] Long Dotson, INJECTION MOLDING OPERATOR [address] [place] [address] Total Knee Arth Discharge Disposition: Home or [...] 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 No / Unsure 11/19/2019 3:08 PM CDT documented as of this encounter [...] this encounter Progress Notes * Long Dotson, INJECTION MOLDING OPERATOR - 11/19/2019 3:16 PM CDT [facility] PHYSICAL THERAPY TREATMENT NOTE Time In: 1515 Time Out: 1525 Total Time: 70 minutes Name: Evaristo Zelaya : 1960 Past [...] CATHETERIZATION 01/04/2018 occluded prox RCA w/well developed bnxh-zd-yvkzo collaterals lvef 55-60% ??? CARDIAC CATHETERIZATION 11/13/2018 ??? FRACTURE SURGERY ??? 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 HERNIA REPAIR ??? KNEE ARTHROPLASTY Bilateral ??? LITHOTRIPSY ??? XA ABLATION 05/19/2016 ??? XA CORONARY INTERVENTION 03/24/2018 LOOM CHANGER PCI-mid RCA Subjective: Diagnosis: R TKA Referring Physician: ISAURO Sarah Onset Date: 10/15/19 Treatment Day: 10 Total Approved Visits: 60 Therapy Plan of Care: 3x/wk for 4 wks Subjective Note: Pt reports some very minor pain this afternoon, but easily tolerable. He reports he has been working on his ROM 1x/day at home. He states stairs are getting easier for him and he believes he is making progress functionally. Location of Pain: R knee Pre-treatment Pain: 04/27 Post-treatment Pain: /10 Restriction/Precaution: WBAT Objective: AAROM R knee flx: 102 degrees Treatment Performed: Therapeutic Exercise - 89861 Minutes Performed: 45 minutes Intervention: - Nustep WL2 x6 mins UE/LE - Slant board calf stretch x1 min x2 - Heel/toe raises x15 ea - Hip abd/ext/flx B x 20 ea (added L kicks today) - Step stretch 10/10 N-Squats x 15 - PROM flexion/extension - heelslide with strap x5 mins with IASTM to quad on flexion stretch HELD- DKTC on peanut ball 2x10 - quad set 10 sec x10 - SAQ 5 sec x 20 HELD- supine hip abduction x20 - SLR x10 N-Supine Bridges x 20 HELD- clamshells x 20 B Manual Therapy - 23024 Minutes Performed: 10 Intervention: - IASTM to R quad (see above) Neuromuscular Reeducation - 92848 Minutes Performed: Intervention: HELD- Czech to R quad with quad sets and SAQ Therapeutic Activities - 40892 Minutes Performed: Modalities Minutes Performed: 15' Intervention: - gameready to R knee x 15 min Total Treatment Time: 70 minutes Education Performed: Pt educated on the importance of HEP consistency multiple times per day to increase knee ROM. ASSESSMENT: Pt making slow steady progress toward ROM goals, but still significantly restricted in knee flexion. Pt progressing in standing activity slowly. PLAN: Plan for next visit: Continue range of motion and strengthening. HEP: heel slide, quad set, HS stretch seated, clamshell, SAQ, SLR, bridge documented in this encounter Plan of Treatment Upcoming Encounters Date Type Department Care Team (Late st Contact Info) Description 04/25/2024 11:00 AM NAT INSTRUCTOR Appointment [facility] [address] [place] [address] Ti Bonilla MD [address] [place] [phone] 05/23/2024 3:30 PM NAT INSTRUCTOR Office Visit [facility] [address] [place] [address] Jyoti Escobar MD [address] [place] [address] [phone] documented as of this encounter Visit Diagnoses Diagnosis Status post revision of total replacement of right knee- Primary documented in this encounter Care Teams Blade Grinder Relationship Specialty Start Date End Date Vernon Mercedes MD [address] [place] [address] PCP - General FAMILY PRACTICE 10/27/15 12/02/21 Evaristo Allan MD [address] [place] [address] [place] Identity Management Developer CARDIOVASCULAR DISEASE 08/19/16 Raul Santana MD [address] [place] [address] CLINICAL CARDIAC ELECTROPHYSIOLOGY 06/16/17 Danny Blackwell MD [address] [facility] [place] [address] ORTHOPAEDIC SURGERY 05/01/19 documented as of this encounter
--- OUTSIDE RECORDS SUMMARY | 2024-04-23 04:27 | XMS_ITS | Encounter Summary ---
Author Organization [facility] Address [address] [place] [address]. 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 No / Unsure 10/29/2019 1:40 PM CDT documented as of this encounter [...] st Contact Info) Description 04/25/2024 11:00 AM FIXING MACHINE OPERATOR Appointment [facility] [address] [place] [address] Ti Bonilla MD [address] [place] [phone] 05/23/2024 3:30 PM FIXING MACHINE OPERATOR Office Visit [facility] [address] [place] [phone] Jyoti Escobar MD [address] [place] [address] documented as of this encounter Visit Diagnoses Not on filedocumented in this encounter Care Teams Driver Operator Relationship Specialty Start Date End Date Vernon Mercedes MD [address] [place] [phone] PCP - General FAMILY PRACTICE 10/27/15 12/02/21 [place] [address] [place] Wet Pan Operator CARDIOVASCULAR DISEASE 08/19/16 Raul Santana MD [address] [place] [address] CLINICAL CARDIAC ELECTROPHYSIOLOGY 06/16/17 Danny Blackwell MD [address] [place] [address] ORTHOPAEDIC SURGERY 05/01/19 documented as of this encounter
--- OUTSIDE RECORDS SUMMARY | 2024-04-23 04:27 | XMS_ITS | Encounter Summary ---
Author Organization [facility] Address [address] [place] [address]. [place], [place] [address] [place] [address] Care Team Providers Care Chin Strap Cutter Name Role Phone Vernon Mercedes MD Primary Care Provider [phone] Evaristo Allan MD Unavailable Unavailabl e Raul Santana MD Unavailable Unavailabl e Danny Blackwell MD Unavailable [phone] Reason for Visit * Reason Comments Jnt Pain/Knee * Physical Medicine (Routine) - Closed Specialty Diagnoses / Procedures Referred By Charito ledbetter Referred To Contact PHYSICAL THERAPY Diagnoses Prosthetic joint implant failure, subsequent encounter Aftercare following right knee joint replacement surgery Dari Piña FNP-ANDERSON [address] [place] [address] Phone: tel: fax: Referral ID Status Reason Start Date Expiration Date V isits Requested Visits Authorized [id number] Closed Physical Therapy 10/16/2019 11/14/2020 60 60 Encounter Details Date Type Department Care Team (Late st Contact Info) Description 10/29/2019 1:41 PM CDT - 10/29/2019 11:59 PM T Hospital Encounter [facility] [address] [place] [address] Dari Piña FNP-ANDERSON [address] [place] [address] Sylvie Benitez, EHS TEACHER Jnt Pain/Knee Discharge Disposition: Home or Self [...] 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 09/13/2019 amitriptyline 50 MG tablet Take 50 mg by mouth nightly at bedtime. 1 aspirin EC 81 MG tablet Take 81 mg by mouth daily. 100 tablet 10/18/2019 4 atorvastatin 40 MG tablet Take 0.5 tablets (20 mg total) by mouth nightly at bedtime. 4 cyclobenzaprine 10 MG tabletIndications:Fa ilure of total knee replacement, initial encounter ([facility]) Take 1 tablet (10 mg total) by mouth 3 (three) times daily as needed for Muscle Spasms. 30 tablet 10/26/2019 0 diazePAM 5 MG tabletIndications:Pr osthetic joint implant failure, subsequent encounter Take 1 tablet (5 mg total) by mouth every 8 (eight) hours as needed (spasms). 10 tablet 10/24/2019 0 famotidine 20 MG tablet Take 2 tablets [...] Chest Pain. 25 tablet 1 01/04/2018 4 ondansetron (ZOFRAN ODT) 4 MG disintegrating tablet Take 1 tablet (4 mg total) by mouth every 8 (eight) hours as needed for Nausea. 20 tablet 10/18/2019 0 oxyCODONE-acetaminop hen (PERCOCET) 7.5-325 MG tabletIndications:Ch ronic Pain Indications: Chronic Pain 1-2 tablets PO q 6 hrs prn 30 tablet 10/26/2019 0 oxyCODONE-acetaminop hen 5-325 MG tabletIndications:Ch ronic Pain Take 1-2 tablets by mouth every 4 (four) hours as needed for Pain. Indications: Chronic Pain 40 tablet 10/18/2019 0 PRADAXA 150 MG Cap TAKE ONE CAPSULE BY MOUTH TWICE A DAY 60 capsule 11 04/04/2019 0 spironolactone 25 MG tablet Take 25 mg by mouth daily. 0 tamsulosin 0.4 MG Cap Take 1 capsule (0.4 mg total) by mouth daily. 4 documented as of this encounter Progress Notes * Sylvie Benitez, EHS TEACHER - 10/29/2019 1:42 PM CDT [facility] PHYSICAL THERAPY TREATMENT NOTE Time In: 1345 Time Out: 1447 Total Time: 62 minutes Name: Evaristo Zelaya : 1960 Past [...] CATHETERIZATION 01/04/2018 occluded prox RCA w/well developed bryh-dk-pywxs collaterals lvef 55-60% ??? CARDIAC CATHETERIZATION 11/13/2018 ??? FRACTURE SURGERY ??? 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 HERNIA REPAIR ??? KNEE ARTHROPLASTY Bilateral ??? LITHOTRIPSY ??? XA ABLATION 05/19/2016 ??? XA CORONARY INTERVENTION 03/24/2018 OFFICE MACHINE TECHNICIAN PCI-mid RCA Subjective: Diagnosis: R TKA Referring Physician: ISAURO Sarah Onset Date: 10/15/19 Treatment Day: 3 Total Approved Visits: 60 Therapy Plan of Care: 3x/wk for 4 wks Subjective Note: Pt states that his doctor switched his pain medicine and it has helped a lot. Pt rates his pain a 2 in right knee pre treatment. Pt reports that he is still unable to lift his leg. Location of Pain: R knee Pre-treatment Pain: 2/10 Post-treatment Pain: 1/10 Restriction/Precaution: WBAT Objective: Treatment Performed: Therapeutic Exercise - 58468 Minutes Performed: 22 minutes Intervention: - PROM flexion/extension - heelslide with strap x 10 - DKTC on peanut ball 2x10 - quad set 10 sec x10 - SAQ assisted x 5 - supine hip abduction x20 Manual Therapy - 87109 Minutes Performed: 10 minutes Intervention: - IASTM to R quad Neuromuscular Reeducation - 04165 Minutes Performed: 10 minutes Intervention: N- Palauan to R quad with quad sets and SAQ Therapeutic Activities - 46352 Minutes Performed: Modalities Minutes Performed: 15 Intervention: - gameready to R knee x 15 min Total Treatment Time: 57 minutes Education Performed: Educated patient to continue current HEP. ASSESSMENT: Note: Pt received Palauan estim this afternoon to help activate his quad while performing quad setsand SAQ. Pt required moderate to max assist with SAQ. Pt able to perform all exercises without complaint of increase in pain. Pt is ambulating with a step through gait pattern with FWW, but slowly. Patient's strengthening exercises were kept the same this visit and will possibly progress next visitdepending on patient's pain tolerance. PLAN: Plan for next visit: Continue range of motion and strengthening. documented in this encounter Plan of Treatment Upcoming Encounters Date Type Department Care Team (Late st Contact Info) Description 04/25/2024 11:00 AM RISK AND COMPLIANCE ANALYTICS DIRECTOR Appointment [facility] [place] [address] Ti Bonilla MD [address] [place] [phone] 05/23/2024 3:30 PM RISK AND COMPLIANCE ANALYTICS DIRECTOR Office Visit [facility] [address] [place] [phone] Jyoti Escobar MD [address] [place] [address] documented as of this encounter Visit Diagnoses Diagnosis Status post revision of total replacement of right knee documented in this encounter Care Teams Chin Strap Cutter Relationship Specialty Start Date End Date Vernon Mercedes MD [address] [place] [address] PCP - General FAMILY PRACTICE 10/27/15 12/02/21 Evaristo Allan MD [address] [place] [address] [place] In House Counsel CARDIOVASCULAR DISEASE 08/19/16 Raul Santana MD [address] [place] [address] CLINICAL CARDIAC ELECTROPHYSIOLOGY 06/16/17 Danny Blackwell MD [address] [place] [address] ORTHOPAEDIC SURGERY 05/01/19 documented as of this encounter
--- OUTSIDE RECORDS SUMMARY | 2024-04-23 04:27 | XMS_ITS | Encounter Summary ---
Author Organization [facility] Address [address] [place] [address]. 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 [...] st Contact Info) Description 04/25/2024 11:00 AM WHOLESALE REPRESENTATIVE Appointment [facility] [address] [place] [place], [place] [phone] Ti Bonilla MD [address] [place] [phone] 05/23/2024 3:30 PM WHOLESALE REPRESENTATIVE Office Visit [facility] [address] [place] [phone] Jyoti Escobar MD [address] [place] [phone] documented as of this encounter Visit Diagnoses Diagnosis Aftercare following right knee joint replacement surgery- Primary documented in this encounter Care Teams Senior Games Technician Relationship Specialty Start Date End Date Vernon Mercedes MD [address] [place] [phone] PCP - General FAMILY PRACTICE 10/27/15 12/02/21 Evaristo Allan MD [address] [place] [address] [place] Certified Phlebotomist CARDIOVASCULAR DISEASE 08/19/16 Raul Santana MD [address] [place] [address] CLINICAL CARDIAC ELECTROPHYSIOLOGY 06/16/17 Danny Blackwell MD [address] [place] [address] ORTHOPAEDIC SURGERY 05/01/19 documented as of this encounter
--- OUTSIDE RECORDS SUMMARY | 2024-04-23 04:27 | XMS_ITS | Encounter Summary ---
Author Organization [facility] Address [address] [place] [address]. [place], [place] [id number] [place] [address] Care Team Providers Care Section Chief Name Role Phone Vernon Mercedes MD Primary Care Provider [phone] Elza Allan MD Unavailable UnavailRaul uSresh MD Unavailable Unavailabl Danny Lopes MD Unavailable [phone] Encounter Details Date Type Department Care Team (Latest Contact Info) Description 11/16/2019 10:08 AM CDT - 11/16/2019 11:59 PM CDT Hospital Encounter [facility] [address] [place] [address] Danny Blackwell MD [address] [place] [address] Discharge Disposition: Home or Self [...] 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 No / Unsure 11/16/2019 8:52 AM CDT documented as of this encounter [...] st Contact Info) Description 04/25/2024 11:00 AM DUMP GRADER Appointment [facility] [address] [place] [address] Ti Bonilla MD [address] [place] [phone] 05/23/2024 3:30 PM DUMP GRADER Office Visit [facility] [address] [place] [phone] Jyoti Escobar MD [address] [place] [address] documented as of this encounter Procedures Procedure Name Priority Date/Time Associated Diagnosis Comments XR KNEE STAND AP VANITA ONLY Routine 11/16/2019 10:18 AM CDT Failure of total knee replacement, initial encounter XR KNEE RT 2V Routine 11/16/2019 10:18 AM CDT Failure of total knee replacement, initial encounter documented in this encounter Results * XR KNEE RT 2V (11/16/2019 10:18 AM CDT) Anatomical Region Laterality Modality Knee Radiographic Shannan ging 11/16/2019 2:49 PM CDT Impressions 11/21/2019 1:27 PM CDT IMPRESSION: TOTAL KNEE ARTHROPLASTIES BILATERALLY SIMILAR TO STUDY 10/26/2019. Signed: Venkat Madrid MD Interpreted By: Venkat Madrid MD, 11/16/2019 2:42 PM Narrative 11/21/2019 1:27 PM CDT PATIENT NAME: ELZA MCKEON EXAM: Standing PA views of both knees and standing lateral and patellar sunrise views of the right knee DATE OF EXAM: 11/16/2019, 9:43 AM COMPARISON EXAM: 10/26/2019 INDICATION: Postop right knee revision arthroplasty. TECHNIQUE: Standing PA weightbearing views of both knees, lateral weightbearing view of the right knee and patellar sunrise view of the right knee FINDINGS: Right knee; 3. ??Part right total knee arthroplasty with moderately extensive the tibial and femoral components and a post from the tibial component extending between the condyles of the femoral component of the prosthesis. ??Small amount of cement between the tibial plateau components of the tibial component of prosthesis and the proximal tibia. ??No fracture or acute bony abnormality. ??No calcified intra-articular bodies. ??Small periarticular calcifications lateral to the lateral tibial component portion of the prosthesis. ??No remarkable joint effusion. Left knee: The left knee prosthesis is present. ??No fracture or acute bony abnormality. ??No gross bone destruction. The appearance of both knees is similar to the previous study 10/26/2019. Procedure Note Valeriy Madrid MD - 11/21/2019 PATIENT NAME: ELZA MCKEON EXAM: Standing PA views of both knees and standing lateral and patellar sunrise views of the right knee DATE OF EXAM: 11/16/2019, 9:43 AM COMPARISON EXAM: 10/26/2019 INDICATION: Postop right knee revision arthroplasty. TECHNIQUE: Standing PA weightbearing views of both knees, lateral weightbearing view of the right knee and patellar sunrise view of theright knee FINDINGS: Right knee; 3. Part right total knee arthroplasty with moderately extensive thetibial and femoral components and a post from the tibial component extending between the condyles of the femoral component of the prosthesis. Small amount of cement between the tibial plateau components of the tibial component of prosthesis and the proximal tibia. No fracture or acutebony abnormality. No calcified intra-articular bodies. Small periarticular calcifications lateral to the lateral tibial component portion of the prosthesis. No remarkable joint effusion. Left knee: The left knee prosthesis is present. No fracture or acute bony abnormality. No gross bone destruction. The appearance of both knees is similar to the previous study 10/26/2019. IMPRESSION: TOTAL KNEE ARTHROPLASTIES BILATERALLY SIMILAR TO STUDY 10/26/2019. Signed: Venkat Madrid MD Interpreted By: Venkat Madrid MD, 11/16/2019 2:42 PM Danny Blackwell MD GENERAL IMAGING Final Result * XR KNEE STAND AP VANITA ONLY (11/16/2019 10:18 AM CDT) Anatomical Region Laterality Modality Knee Radiographic Shannan ging 11/16/2019 2:42 PM CDT Impressions 11/16/2019 2:48 PM CDT IMPRESSION: TOTAL KNEE ARTHROPLASTIES BILATERALLY SIMILAR TO STUDY 10/26/2019. Signed: Venkat Madrid MD Interpreted By: Venkat Madrid MD, 11/16/2019 2:42 PM Narrative 11/16/2019 2:48 PM CDT PATIENT NAME: ELZA MCKEON EXAM: Standing PA views of both knees and standing lateral and patellar sunrise views of the right knee DATE OF EXAM: 11/16/2019, 9:43 AM COMPARISON EXAM: 10/26/2019 INDICATION: Postop right knee revision arthroplasty. TECHNIQUE: Standing PA weightbearing views of both knees, lateral weightbearing view of the right knee and patellar sunrise view of the right knee FINDINGS: Right knee; 3. ??Part right total knee arthroplasty with moderately extensive the tibial and femoral components and a post from the tibial component extending between the condyles of the femoral component of the prosthesis. ??Small amount of cement between the tibial plateau components of the tibial component of prosthesis and the proximal tibia. ??No fracture or acute bony abnormality. ??No calcified intra-articular bodies. ??Small periarticular calcifications lateral to the lateral tibial component portion of the prosthesis. ??No remarkable joint effusion. Left knee: The left knee prosthesis is present. ??No fracture or acute bony abnormality. ??No gross bone destruction. The appearance of both knees is similar to the previous study 10/26/2019. Procedure Note Valeriy Madrid MD - 11/21/2019 PATIENT NAME: ELZA MCKEON EXAM: Standing PA views of both knees and standing lateral and patellar sunrise views of the right knee DATE OF EXAM: 11/16/2019, 9:43 AM COMPARISON EXAM: 10/26/2019 INDICATION: Postop right knee revision arthroplasty. TECHNIQUE: Standing PA weightbearing views of both knees, lateral weightbearing view of the right knee and patellar sunrise view of theright knee FINDINGS: Right knee; 3. Part right total knee arthroplasty with moderately extensive thetibial and femoral components and a post from the tibial component extending between the condyles of the femoral component of the prosthesis. Small amount of cement between the tibial plateau components of the tibial component of prosthesis and the proximal tibia. No fracture or acutebony abnormality. No calcified intra-articular bodies. Small periarticular calcifications lateral to the lateral tibial component portion of the prosthesis. No remarkable joint effusion. Left knee: The left knee prosthesis is present. No fracture or acute bony abnormality. No gross bone destruction. The appearance of both knees is similar to the previous study 10/26/2019. IMPRESSION: TOTAL KNEE ARTHROPLASTIES BILATERALLY SIMILAR TO STUDY 10/26/2019. Signed: Venkat Madrid MD Interpreted By: Venkat Madrid MD, 11/16/2019 2:42 PM Danny Blackwell MD GENERAL IMAGING Final Result documented in this encounter Visit Diagnoses Diagnosis Failure of total knee replacement, initial encounter ([facility] documented in this encounter Care Teams Section Chief Relationship Specialty Start Date End Date Vernon Mercedes MD [address] [place] [phone] PCP - General FAMILY PRACTICE 10/27/15 12/02/21 Elza Allan MD [address] [place] [address] [place] Deployment Technician CARDIOVASCULAR DISEASE 08/19/16 Raul Santana MD [address] [place] [address] CLINICAL CARDIAC ELECTROPHYSIOLOGY 06/16/17 Danny Blackwell MD [address] [place] [address] ORTHOPAEDIC SURGERY 05/01/19 documented as of this encounter
--- OUTSIDE RECORDS SUMMARY | 2024-04-23 04:27 | XMS_ITS | Encounter Summary ---
Author Organization [facility] Address [address] [place] [address]. [place], [place] [phone] [place] [address] Care Team Providers Care Information Technology Architect Name Role Phone Vernon Mercedes MD Primary Care Provider [phone] Evaristo Allan MD Unavailable Unavailabl e Raul Santana MD Unavailable Unavailabl e Danny Blackwell MD Unavailable [phone] Reason for Visit * Reason Comments Jnt Pain/Knee * Physical Medicine (Routine) - Closed Specialty Diagnoses / Procedures Referred By Charito ledbetter Referred To Contact PHYSICAL THERAPY Diagnoses Prosthetic joint implant failure, subsequent encounter Aftercare following right knee joint replacement surgery Dari Piña FNP-[facility]ERSON [address] [place] [address] Phone: tel: fax: Referral ID Status Reason Start Date Expiration Date V isits Requested Visits Authorized [id number] Closed Physical Therapy 10/16/2019 11/14/2020 60 60 Encounter Details Date Type Department Care Team (Late st Contact Info) Description 11/01/2019 1:40 PM CDT - 11/01/2019 11:59 PM CDT Hospital Encounter [facility] [address] [place] [address] Dari Piña FNP-ANDERSON [address] [place] [phone] Austen Gaytan, DPT Jnt Pain/Knee Discharge Disposition: Home or [...] 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 No / Unsure 11/01/2019 1:40 PM CDT documented as of this [...] ilure of total knee replacement, initial encounter ([facility]) Take 1 tablet (10 mg total) by [...] as of this encounter Progress Notes * Austen Lindsay DPT - 11/01/2019 1:47 PM CDT [facility] PHYSICAL THERAPY TREATMENT NOTE Time In: 1345 Time Out: 1445 Total Time: 60 minutes Name: Evaristo Zelaya [...] CATHETERIZATION 01/04/2018 occluded prox RCA w/well developed [id number] collaterals lvef 55-60% ??? CARDIAC CATHETERIZATION 11/13/2018 ??? FRACTURE SURGERY ??? 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 HERNIA REPAIR ??? KNEE ARTHROPLASTY Bilateral ??? LITHOTRIPSY ??? XA ABLATION 05/19/2016 ??? XA CORONARY INTERVENTION 03/24/2018 QUARTZ ORIENTATOR PCI-mid RCA Subjective: Diagnosis: R TKA Referring Physician: ISAURO Sarah Onset Date: 10/15/19 Treatment Day: 4 Total Approved Visits: 60 Therapy Plan of Care: 3x/wk for 4 wks Subjective Note: Pt arrives stating his pain medication has continued to keep pain under control. States he was able to get out of bed this morning on his own, just has to take his time. Location of Pain: R knee Pre-treatment Pain: 10 Post-treatment Pain: 04/27 Restriction/Precaution: WBAT Objective: Treatment Performed: Therapeutic Exercise - 38012 Minutes Performed: 23 minutes Intervention: - PROM flexion/extension - heelslide with strap 3' hold x 10 Held- DKTC on peanut ball 2x10 - quad set 10 sec x10 - SAQ assisted x 10 (inc reps) - supine hip abduction x20 Manual Therapy - 94362 Minutes Performed: 10 minutes Intervention: - IASTM to R quad Neuromuscular Reeducation - 57923 Minutes Performed: 10 minutes Intervention: - Swedish to R quad with quad sets and SAQ Therapeutic Activities - 17482 Minutes Performed: Modalities Minutes Performed: 15 Intervention: - gameready to R knee x 15 min Total Treatment Time: 58 minutes Education Performed: Educated to continue current HEP. ASSESSMENT: Note: Pt performs SAQ through 80% available ROM today without assistance. Continued with Swedish Stim for Quad recruitment and strengthening. Increased stiffness in R quads noted during STM. PLAN: Plan for next visit: Continue range of motion and strengthening. documented in this encounter Plan of Treatment Upcoming Encounters Date Type Department Care Team (Late st Contact Info) Description 04/25/2024 11:00 AM GIS ANALYST DEVELOPER Appointment [facility], [phone] [place] [address] Ti Bonilla MD [address] [place] [phone] 05/23/2024 3:30 PM GIS ANALYST DEVELOPER Office Visit [facility] [address] [place] [phone] Jyoti Escobar MD [address] [place] [phone] documented as of this encounter Visit Diagnoses Diagnosis Status post revision of total replacement of right knee documented in this encounter Care Teams Information Technology Architect Relationship Specialty Start Date End Date Vernon Mercedes MD [address] [place] [phone] PCP - General FAMILY PRACTICE 10/27/15 12/02/21 Evaristo Allan MD [address] [place] [address] [employer] Magneto Mechanic CARDIOVASCULAR DISEASE 08/19/16 Raul Santana MD [address] [place] [address] CLINICAL CARDIAC ELECTROPHYSIOLOGY 06/16/17 Danny Blakcwell MD [address] [facility] [place], [place] [phone] ORTHOPAEDIC SURGERY 05/01/19 documented as of this encounter
--- OUTSIDE RECORDS SUMMARY | 2024-04-23 04:27 | XMS_ITS | Encounter Summary ---
Author Organization [facility] Address [address] [place] [address]. 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 Not on [...] Contact Info) Description 04/25/2024 11:00 AM ASSISTANT PROJECT MANAGER Appointment [facility] [address] [place] [address] Ti Bonilla MD [address] [place] [phone] 05/23/2024 3:30 PM ASSISTANT PROJECT MANAGER Office Visit [facility] [address] [place] [phone] Jyoti Escobar MD [address] [place] [phone] documented as of this encounter Visit Diagnoses Not on filedocumented in this encounter Care Teams City Planner Relationship Specialty Start Date End Date Vernon Mercedes MD [address] [place] [phone] PCP - General FAMILY PRACTICE 10/27/15 12/02/21 [place] [address] [place] Perennial House Manager CARDIOVASCULAR DISEASE 08/19/16 Raul Santana MD [address] [place] [address] CLINICAL CARDIAC ELECTROPHYSIOLOGY 06/16/17 Danny Blackwell MD [address] [place] [address] ORTHOPAEDIC SURGERY 05/01/19 documented as of this encounter
--- OUTSIDE RECORDS SUMMARY | 2024-04-23 04:27 | XMS_ITS | Encounter Summary ---
Author Organization [facility] Address [address] [place] [address]. [place], [place] [address] [place] [address] Care Team Providers Care Materials Associate Name Role Phone Vernon Mercedes MD Primary Care Provider [phone] Evaristo Allan MD Unavailable Unavailabl e Raul Santana MD Unavailable Unavailabl e Danny Blackwell MD Unavailable [phone] Reason for Visit * Reason Comments Jnt Pain/Knee * Physical Medicine (Routine) - Closed Specialty Diagnoses / Procedures Referred By Charito ledbetter Referred To Contact PHYSICAL THERAPY Diagnoses Prosthetic joint implant failure, subsequent encounter Aftercare following right knee joint replacement surgery Dari Piña FNP-[facility]ERSON [address] [place] [address] Phone: tel: fax: Referral ID Status Reason Start Date Expiration Date V isits Requested Visits Authorized [id number] Closed Physical Therapy 10/16/2019 11/14/2020 60 60 Encounter Details Date Type Department Care Team (Late st Contact Info) Description 11/05/2019 2:15 PM CDT - 11/05/2019 11:59 PM T Hospital Encounter [facility] [address] [place] [address] Dari Piña FNP-ANDERSON [address] [place] [address] Sylvie Benitez, PRACTICAL NURSING TEACHER Jnt Pain/Knee Discharge Disposition: Home or [...] 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 4 diazePAM 5 MG tabletIndications:Pr osthetic joint implant [...] this encounter Progress Notes * Sylvie Benitez, PRACTICAL NURSING TEACHER - 11/05/2019 2:27 PM CDT [facility] PHYSICAL THERAPY TREATMENT NOTE [...] CATHETERIZATION 01/04/2018 occluded prox RCA w/well developed [id number]-km-[id number] collaterals lvef 55-60% ??? CARDIAC CATHETERIZATION 11/13/2018 ??? FRACTURE SURGERY ??? 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 HERNIA REPAIR ??? KNEE ARTHROPLASTY Bilateral ??? LITHOTRIPSY ??? XA ABLATION 05/19/2016 ??? XA CORONARY INTERVENTION 03/24/2018 APPRENTICE ELECTRICIAN PCI-mid RCA Subjective: Diagnosis: R TKA Referring Physician: ISAURO Sarah Onset Date: 10/15/19 Treatment Day: 6 Total Approved Visits: 60 Therapy Plan of Care: 3x/wk for 4 wks Subjective Note: Pt states that his knee is a little sore this afternoon, but nothing like it was last week. Pt is compliant with HEP. Pt rates his pain a 1 in right knee pre treatment. Location of Pain: R knee Pre-treatment Pain: 10 Post-treatment Pain: 1/10 Restriction/Precaution: WBAT Objective: R knee flexion: AROM 80 degrees PROM 88 degrees Treatment Performed: Therapeutic Exercise - 31315 Minutes Performed: 30 minutes Intervention: - PROM flexion/extension - heelslide with strap 3' hold x 10 HELD- DKTC on peanut ball 2x10 - quad set 10 sec x10 - SAQ 2 x 10 (INCRSD REPS) - supine hip abduction x20 N-SLR x5 Manual Therapy - 36077 Minutes Performed: 10 minutes Intervention: - IASTM to R quad Neuromuscular Reeducation - 28394 Minutes Performed: Intervention: HELD- Central African to R quad with quad sets and SAQ Therapeutic Activities - 87914 Minutes Performed: Modalities Minutes Performed: 15' Intervention: - gameready to R knee x 15 min Total Treatment Time: 55 minutes Education Performed: Educated to continue current HEP. ASSESSMENT: Note: Pt has good quad control this afternoon, so patient didn't receive [place] African to R quad. Pt ableto complete SLR on own. Pt continues to progress towards flexion goal, see obj. Pt continues to work hard during therapy and completes what is asked. PLAN: Plan for next visit: Continue range of motion and strengthening. documented in this encounter Plan of Treatment Upcoming Encounters Date Type Department Care Team (Late st Contact Info) Description 04/25/2024 11:00 AM BUILDING RENTAL MANAGER Appointment [facility] [address] [place] [address] Ti Bonilla MD [address] [place] [phone] 05/23/2024 3:30 PM BUILDING RENTAL MANAGER Office Visit [facility] [address] [place] [phone] Jyoti Escobar MD [address] [place] [address] documented as of this encounter Visit Diagnoses Diagnosis Status post revision of total replacement of right knee- Primary documented in this encounter Care Teams Materials Associate Relationship Specialty Start Date End Date Vernon Mercedes MD [address] [place] [address] PCP - General FAMILY PRACTICE 10/27/15 12/02/21 Evaristo Allan MD [address] [place] [address] [employer] Sales Agent CARDIOVASCULAR DISEASE 08/19/16 Raul Santana MD [address] [place] [address] CLINICAL CARDIAC ELECTROPHYSIOLOGY 06/16/17 Danny Blackwell MD [address] [place], [place] [phone] ORTHOPAEDIC SURGERY 05/01/19 documented as of this encounter
--- OUTSIDE RECORDS SUMMARY | 2024-04-23 04:27 | XMS_ITS | Encounter Summary ---
Author Organization [facility] Address [address] [place] [address]. [place], [place] [address] [place] [address] Care Team Providers Care Supervisor Prep Name Role Phone Vernon Mercedes MD Primary Care Provider [phone] Evaristo Allan MD Unavailable UnavailRaul Suresh MD Unavailable Unavailabl Danny Lopes MD Unavailable [phone] Reason for Visit * Physical Medicine (Routine) - Closed Specialty Diagnoses / Procedures Referred By Charito ledbetter Referred To Contact PHYSICAL THERAPY Diagnoses Prosthetic joint implant failure, subsequent encounter Aftercare following right knee joint replacement surgery Dari Piña FNP-BC [address] [place] [address] Phone: tel: fax: Referral ID Status Reason Start Date Expiration Date V isits Requested Visits Authorized [id number] Closed Physical Therapy 10/16/2019 11/14/2020 60 60 Encounter Details Date Type Department Care Team (Late st Contact Info) Description 11/16/2019 8:52 AM CDT - 11/16/2019 10:07 AM T Hospital Encounter [facility] [address] [place] [address] Dari Piña FNP-BC [address] [place] [address] Keiry Naranjo, BREAD SLICER MACHINE [address] [place] [address] Discharge Disposition: Home or Self Care (Routine [...] 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 CARDIAC CATHETERIZATION 11/13/2018 ??? FRACTURE SURGERY ??? 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 HERNIA REPAIR ??? KNEE ARTHROPLASTY Bilateral ??? LITHOTRIPSY ??? XA ABLATION 05/19/2016 ??? XA CORONARY INTERVENTION 03/24/2018 METAL FURNITURE GLAZIER PCI-mid RCA Subjective: Diagnosis: R TKA Referring Physician: ISAURO Sarah Onset Date: 10/15/19 Treatment Day: 9 Total Approved Visits: 60 Therapy Plan of Care: 3x/wk for 4 wks Subjective Note: Patient states he is doing alright today and reports minimal discomfort. Location of Pain: R knee Pre-treatment Pain: 1/10 Post-treatment Pain: 0/10 Restriction/Precaution: WBAT Objective: AAROM R knee flx: 97 degrees Treatment Performed: Therapeutic Exercise - 19495 Minutes Performed: 43 minutes Intervention: - Nustep WL2 x6 mins UE/LE - Slant board calf stretch x1 min x2 - Heel/toe raises x15 ea - Hip abd/ext/flx R x15 ea - Step stretch 10/10 - PROM flexion/extension - heelslide with strap x5 mins with IASTM to quad on flexion stretch HELD- DKTC on peanut ball 2x10 - quad set 10 sec x10 - SAQ 5 sec x 20 HELD- supine hip abduction x20 - SLR x10 HELD- clamshells x 20 B Manual Therapy - 90841 Minutes Performed: Intervention: - IASTM to R quad (see above) Neuromuscular Reeducation - 86564 Minutes Performed: Intervention: HELD- Kittitian to R quad with quad sets and SAQ Therapeutic Activities - 65334 Minutes Performed: Modalities Minutes Performed: 15' Intervention: - gameready to R knee x 15 min Total Treatment Time: minutes Education Performed: Updated HEP. ASSESSMENT: Patient remains moderately restricted in knee flexion mobility however also struggles with tolerating discomfort in the knee. Patient is tolerating exercises better overall though and has continued to progress with both OKC and CKC activity. Patient is slowly improving in knee flexion ROM and strength. Will cont. To work hard on mobility improvement as well as strengthening to aid in normalizing gait and progression off walker. Discussed with patient possibility of progression to a cane and patient feels he may be able to do this but feels he is not 100% ready to go without AD. PLAN: Plan for next visit: Continue range of motion and strengthening. Add Nustep next visit to work on range of motion and add bridge. HEP: heel slide, quad set, HS stretch seated, clamshell, SAQ, SLR, bridge documented in this encounter Plan of Treatment Upcoming Encounters Date Type Department Care Team (Late st Contact Info) Description 04/25/2024 11:00 AM UX DEVELOPER DESIGNER Appointment [facility] [address] [place] [address] Ti Bonilla MD [address] [place] [phone] 05/23/2024 3:30 PM UX DEVELOPER DESIGNER Office Visit [facility] [address] [place] [address] Jyoti Escobar MD [address] [place] [address] documented as of this encounter Visit Diagnoses Diagnosis Status post revision of total replacement of right knee documented in this encounter Care Teams Supervisor Prep Relationship Specialty Start Date End Date Vernon Mercedes MD [address] [place] [address] PCP - General FAMILY PRACTICE 10/27/15 12/02/21 Evaristo Allan MD [address] [place] [address] [place] Vice President Of Finance CARDIOVASCULAR DISEASE 08/19/16 Raul Santana MD [address] [place] [address] CLINICAL CARDIAC ELECTROPHYSIOLOGY 06/16/17 Danny Blackwell MD [address] [place], [place] [phone] ORTHOPAEDIC SURGERY 05/01/19 documented as of this encounter
--- OUTSIDE RECORDS SUMMARY | 2024-04-23 04:27 | XMS_ITS | Encounter Summary ---
Author Organization [facility] Address [address] [place] [address]. [place], [place] [address] [place] [address] Care Team Providers Care Assistant Terminal Manager Name Role Phone Vernon Mercedes MD Primary Care Provider [phone] Elza Allan MD Unavailable Unavailabl e Raul Santana MD Unavailable Unavailabl e Danny Blackwell MD Unavailable [phone] Encounter Details Date Type Department Care Team (Late st Contact Info) Description 11/13/2019 Orders Only [facility] [address] [place] [address], [facility] [address] [place] [phone] Kady Vann RN Social History Tobacco Use Types Packs/Day [...] 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 No / Unsure 11/12/2019 3:05 PM CDT documented as of this encounter [...] st Contact Info) Description 04/25/2024 11:00 AM SAFETY INSTRUCTION POLICE OFFICER Appointment [facility] [address] [place] [address] [place] [address] Ti Bonilla MD [address] [place] [phone] 05/23/2024 3:30 PM SAFETY INSTRUCTION POLICE OFFICER Office Visit [facility] [address] [place] [address] Jyoti Escobar MD [address] [place] [address] [phone] documented as of this encounter Results * [...] Failure of total knee replacement, initial encounter (CMS/HCC)- Primary Failure of total knee replacement, initial encounter (CMS/HCC) documented in this encounter Care Teams Assistant Terminal Manager Relationship Specialty Start Date End Date Vernon Mercedes MD [address] [place] [address] PCP - General FAMILY PRACTICE 10/27/15 12/02/21 Elza Allan MD [address] [place] [address] [place] Softwood Faller CARDIOVASCULAR DISEASE 08/19/16 Raul Santana MD [address] [place] [address] CLINICAL CARDIAC ELECTROPHYSIOLOGY 06/16/17 Danny Blackwell MD [address] [place] [address] ORTHOPAEDIC SURGERY 05/01/19 documented as of this encounter
--- OUTSIDE RECORDS SUMMARY | 2024-04-23 04:27 | XMS_ITS | Encounter Summary ---
Author Organization [facility] Address [address] [place] [address]. [place], [place] [address] [place] [address] Care Team Providers Care Fretted String Instrument Repairer Name Role Phone Vernon Mercedes MD Primary Care Provider [phone] Evaristo Allan MD Unavailable Unavailabl Raul Duran MD Unavailable Unavailabl Danny Lopes MD Unavailable [phone] Reason for Visit * Physical Medicine (Routine) - Closed Specialty Diagnoses / Procedures Referred By Charito ledbetter Referred To Contact PHYSICAL THERAPY Diagnoses Prosthetic joint implant failure, subsequent encounter Aftercare following right knee joint replacement surgery Dari Piña FNP-BC [address] [place] [address] Phone: tel: fax: Referral ID Status Reason Start Date Expiration Date V isits Requested Visits Authorized [id number] Closed Physical Therapy 10/16/2019 11/14/2020 60 60 Encounter Details Date Type Department Care Team (Late st Contact Info) Description 11/14/2019 4:00 PM CDT - 11/14/2019 11:59 PM T Hospital Encounter [facility] [address] [place] [address] Dari Piña FNP-BC [address] [place] [address] Keiry Naranjo, ROLL FORM OPERATOR [address] [place] [address] Discharge Disposition: Home or Self Care (Routine [...] 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 CARDIAC CATHETERIZATION 11/13/2018 ??? FRACTURE SURGERY ??? 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 HERNIA REPAIR ??? KNEE ARTHROPLASTY Bilateral ??? LITHOTRIPSY ??? XA ABLATION 05/19/2016 ??? XA CORONARY INTERVENTION 03/24/2018 MINING CAPTAIN PCI-mid RCA Subjective: Diagnosis: R TKA Referring Physician: ISAURO Sarah Onset Date: 10/15/19 Treatment Day: 8 Total Approved Visits: 60 Therapy Plan of Care: 3x/wk for 4 wks Subjective Note: Patient reports his knee has been real sore since Tuesday. Patient states he has not taken any pain pills though. Location of Pain: R knee Pre-treatment Pain: 2-3/10 Post-treatment Pain: 0/10 Restriction/Precaution: WBAT Objective: Treatment Performed: Therapeutic Exercise - 14094 Minutes Performed: 45 minutes Intervention: N- Nustep WL2 x6 mins UE/LE N- Slant board calf stretch x1 min x2 N- Heel/toe raises x15 ea N- Hip abd/ext/flx R x15 ea N- Step stretch 10/10 - PROM flexion/extension - heelslide with strap x5 mins with IASTM to quad on flexion stretch HELD- DKTC on peanut ball 2x10 - quad set 10 sec x10 - SAQ 5 sec x 20 HELD- supine hip abduction x20 - SLR x10 HELD- clamshells x 20 B Manual Therapy - 07812 Minutes Performed: Intervention: - IASTM to R quad (see above) Neuromuscular Reeducation - 96264 Minutes Performed: Intervention: HELD- Portuguese to R quad with quad sets and SAQ Therapeutic Activities - 27657 Minutes Performed: Modalities Minutes Performed: 15' Intervention: - gameready to R knee x 15 min Total Treatment Time: minutes Education Performed: Updated HEP. ASSESSMENT: Patient tolerated treatment with minimal c/o increase pain. Initiated CKC exercise to focus on incrstrength and mobility through weightbearing. Patient remains moderately limited in knee flexion ROMhowever is slowly improving. Patient is able to achieve full terminal knee extension again this visit. PLAN: Plan for next visit: Continue range of motion and strengthening. Add Nustep next visit to work on range of motion and add bridge. HEP: heel slide, quad set, HS stretch seated, clamshell, SAQ, SLR, bridge documented in this encounter Plan of Treatment Upcoming Encounters Date Type Department Care Team (Late st Contact Info) Description 04/25/2024 11:00 AM SALVAGE INSPECTOR Appointment [facility] [place] [address] Ti Bonilla MD [address] [place] [phone] 05/23/2024 3:30 PM SALVAGE INSPECTOR Office Visit [facility] [place] [address] Jyoti Escobar MD [address] [place] [address] documented as of this encounter Visit Diagnoses Diagnosis Status post revision of total replacement of right knee documented in this encounter Care Teams Fretted String Instrument Repairer Relationship Specialty Start Date End Date Vernon Mercedes MD [address] [place] [address] PCP - General FAMILY PRACTICE 10/27/15 12/02/21 Evaristo Allan MD [address] [place] [address] [employer] Labor Economics Professor CARDIOVASCULAR DISEASE 08/19/16 Raul Santana MD [address] [place] [address] CLINICAL CARDIAC ELECTROPHYSIOLOGY 06/16/17 Danny Blackwell MD [address] [place] [address] ORTHOPAEDIC SURGERY 05/01/19 documented as of this encounter
--- OUTSIDE RECORDS SUMMARY | 2024-04-23 04:27 | XMS_ITS | Encounter Summary ---
Author Organization [facility] Address [address] [place] [address]. 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 Not on [...] st Contact Info) Description 04/25/2024 11:00 AM PIN SETTER Appointment [facility] [address] [place] [address] Ti Bonilla MD [address] [place] [phone] 05/23/2024 3:30 PM PIN SETTER Office Visit [facility] [address] [place] [phone] Jyoti Escobar MD [address] [place] [phone] documented as of this encounter Visit Diagnoses Not on filedocumented in this encounter Care Teams Forest Economics Professor Relationship Specialty Start Date End Date Vernon Mercedes MD [address] [place] [phone] PCP - General FAMILY PRACTICE 10/27/15 12/02/21 [place] [address] [place] Bow Stapler CARDIOVASCULAR DISEASE 08/19/16 Raul Santana MD [address] [place] [address] CLINICAL CARDIAC ELECTROPHYSIOLOGY 06/16/17 Danny Blackwell MD [address] [place] [address] ORTHOPAEDIC SURGERY 05/01/19 documented as of this encounter
--- OUTSIDE RECORDS SUMMARY | 2024-04-23 04:27 | XMS_ITS | Encounter Summary ---
Author Organization [facility] Address [address] [place] [address]. [place], [place] [address] [place] [address] Care Team Providers Care Senior Naval Parachutist Name Role Phone Vernon Mercedes MD Primary Care Provider [phone] Evaristo Allan MD Unavailable Unavailabl Raul Duran MD Unavailable Unavailabl Danny Lopes MD Unavailable [phone] Encounter Details Date Type Department Care Team (Latest Contact Info) Description 11/19/2019 Travel Social History Tobacco Use Types Packs/Day [...] st Contact Info) Description 04/25/2024 11:00 AM CONTACT OFFICER Appointment [facility] [address] [place] [address] Ti Bonilla MD [address] [place] [phone] 05/23/2024 3:30 PM CONTACT OFFICER Office Visit [facility] [address] [place] [phone] Jyoti Escobar MD [address] [place] [phone] documented as of this encounter Visit Diagnoses Not on filedocumented in this encounter Care Teams Senior Naval Parachutist Relationship Specialty Start Date End Date Vernon Mercedes MD [address] [place] [phone] PCP - General FAMILY PRACTICE 10/27/15 12/02/21 [place] [address] [place] Service Parts Driver CARDIOVASCULAR DISEASE 08/19/16 Raul Santana MD [address] [place] [address] CLINICAL CARDIAC ELECTROPHYSIOLOGY 06/16/17 Danny Blackwell MD [address] [place] [address] ORTHOPAEDIC SURGERY 05/01/19 documented as of this encounter
--- OUTSIDE RECORDS SUMMARY | 2024-04-23 04:27 | XMS_ITS | Encounter Summary ---
Author Organization [facility] Address [address] [place] [address]. 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 Not on [...] st Contact Info) Description 04/25/2024 11:00 AM HAND CLERICAL VERIFIER Appointment [facility] [address] [place] [address] Ti Bonilla MD [address] [place] [phone] 05/23/2024 3:30 PM HAND CLERICAL VERIFIER Office Visit [facility] [address] [place] [phone] Jyoti Escobar MD [address] [place] [phone] documented as of this encounter Visit Diagnoses Not on filedocumented in this encounter Care Teams Outcomes Analyst Relationship Specialty Start Date End Date Vernon Mercedes MD [address] [place] [phone] PCP - General FAMILY PRACTICE 10/27/15 12/02/21 [place] [address] [place] Nursery Rn CARDIOVASCULAR DISEASE 08/19/16 Raul Santana MD [address] [place] [address] CLINICAL CARDIAC ELECTROPHYSIOLOGY 06/16/17 Danny Blackwell MD [address] [place] [address] ORTHOPAEDIC SURGERY 05/01/19 documented as of this encounter
--- OUTSIDE RECORDS SUMMARY | 2024-04-23 04:27 | XMS_ITS | Encounter Summary ---
Author Organization [facility] Address [address] [place] [address]. [place], [place] [address] [place] [address] Care Team Providers Care Mental Health Practitioner Name Role Phone Vernon Mercedes MD Primary Care Provider [phone] Evaristo Allan MD Unavailable Unavailabl Raul Duran MD Unavailable Unavailabl Danny Lopes MD Unavailable [phone] Reason for Visit * Physical Medicine (Routine) - Closed Specialty Diagnoses / Procedures Referred By Charito ledbetter Referred To Contact PHYSICAL THERAPY Diagnoses Prosthetic joint implant failure, subsequent encounter Aftercare following right knee joint replacement surgery Dari Piña FNP-BC [address] [place] [address] Phone: tel: fax: Referral ID Status Reason Start Date Expiration Date V isits Requested Visits Authorized [id number] Closed Physical Therapy 10/16/2019 11/14/2020 60 60 Encounter Details Date Type Department Care Team (Late st Contact Info) Description 11/02/2019 12:22 PM CDT - 11/02/2019 11:59 PM CDT Hospital Encounter [facility] [address] [place] [address] Dari Piña FNP-BC [address] [place] [address] Keiry Naranjo, SUPERVISOR IN CHARGE [address] [place] [address] Discharge Disposition: Home or Self Care (Routine [...] 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 CARDIAC CATHETERIZATION 11/13/2018 ??? FRACTURE SURGERY ??? 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 HERNIA REPAIR ??? KNEE ARTHROPLASTY Bilateral ??? LITHOTRIPSY ??? XA ABLATION 05/19/2016 ??? XA CORONARY INTERVENTION 03/24/2018 FULL STACK JAVA DEVELOPER PCI-mid RCA Subjective: Diagnosis: R TKA Referring Physician: ISAURO Sarah Onset Date: 6/29/20 Treatment Day: 5 Total Approved Visits: 60 Therapy Plan of Care: 3x/wk for 4 wks Subjective Note: Patient reports he felt worked over after yesterdays appointment but feels good overall. Patient reports minimal discomfort. Location of Pain: R knee Pre-treatment Pain: 2/10 Post-treatment Pain: 1/10 Restriction/Precaution: WBAT Objective: PROM: R knee flexion: 74 degrees Treatment Performed: Therapeutic Exercise - 69754 Minutes Performed: 25 minutes Intervention: - PROM flexion/extension - heelslide with strap 3' hold x 10 HELD- DKTC on peanut ball 2x10 - quad set 10 sec x10 - SAQ 2 x 10 (INCRSD REPS) - supine hip abduction x20 Manual Therapy - 28871 Minutes Performed: 10 minutes Intervention: - IASTM to R quad Neuromuscular Reeducation - 42022 Minutes Performed: 10 minutes Intervention: - Cambodian to R quad with quad sets and SAQ Therapeutic Activities - 43073 Minutes Performed: Modalities Minutes Performed: 15' Intervention: - gameready to R knee x 15 min Total Treatment Time: 60 minutes Education Performed: Educated to continue current HEP. ASSESSMENT: Patient demonstrates difficulty with active SLR however is able to perform this a few times t/o treatment. Patient remains significantly limited in knee flexion mobility however has demonstrated 10 degrees improvement since I.E. PLAN: Plan for next visit: Continue range of motion and strengthening. documented in this encounter Plan of Treatment Upcoming Encounters Date Type Department Care Team (Late st Contact Info) Description 04/25/2024 11:00 AM [address] TREATER Appointment [facility] [place] [address] Ti Bonilla MD [address] [place] [phone] 05/23/2024 3:30 PM PROCESS TREATER Office Visit [facility] [address] [place] [address] Jyoti Escobar MD [address] [place] [address] documented as of this encounter Visit Diagnoses Diagnosis Status post revision of total replacement of right knee documented in this encounter Care Teams Mental Health Practitioner Relationship Specialty Start Date End Date Vernon Mercedes MD [address] [place] [phone] PCP - General FAMILY PRACTICE 10/27/15 12/02/21 Evaristo Allan MD [address] [place] [address] [place] Optical Worker CARDIOVASCULAR DISEASE 08/19/16 Raul Santana MD [address] [place] [address] CLINICAL CARDIAC ELECTROPHYSIOLOGY 06/16/17 Danny Blackwell MD [address] [facility] [place] [address] ORTHOPAEDIC SURGERY 05/01/19 documented as of this encounter
--- OUTSIDE RECORDS SUMMARY | 2024-04-23 04:27 | XMS_ITS | Encounter Summary ---
Author Organization [facility] Address [address] [place] [address]. 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 file [...] st Contact Info) Description 04/25/2024 11:00 AM TICKET DISPATCHER Appointment [facility] [address] [place] [address] Ti Bonilla MD [address] [place] [phone] 05/23/2024 3:30 PM TICKET DISPATCHER Office Visit [facility] [address] [place] [phone] Jyoti Escobar MD [address] [place] [phone] documented as of this encounter Visit Diagnoses Not on filedocumented in this encounter Care Teams Business Analyst Project Manager Relationship Specialty Start Date End Date Vernon Mercedes MD [address] [place] [phone] PCP - General FAMILY PRACTICE 10/27/15 12/02/21 [place] [address] Lejunior Development Engineer CARDIOVASCULAR DISEASE 08/19/16 Raul Santana MD [address] [place] [address] CLINICAL CARDIAC ELECTROPHYSIOLOGY 06/16/17 Danny Blackwell MD [address] [place] [address] ORTHOPAEDIC SURGERY 05/01/19 documented as of this encounter
--- OUTSIDE RECORDS SUMMARY | 2024-04-23 04:27 | XMS_ITS | Encounter Summary ---
Author Organization [facility] Address [address] [place] [address]. [place], [place] [address] [place] [address] Care Team Providers Care Bobbin Inspector Name Role Phone Vernon Mercedes MD Primary Care Provider [phone] Evaristo Allan MD Unavailable Unavailabl Raul Duran MD Unavailable Unavailabl e Danny Blackwell MD Unavailable [phone] Reason for Visit * Reason Comments Postop Followup DOS: 10/15/2019 - Fa iled right total knee arthroplasty secondary to osteo-lysis Encounter Details Date Type Department Care Team (Latest Contact Info) Description 11/16/2019 11:15 AM CDT Office Visit [facility] [address] [address] Danny Blackwell MD [address] [place], [place] [phone] Postop Followup (DOS: 10/15/2019 - 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) Social History Tobacco Use Types Packs/Day Years [...] 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 Not [...] - - Weight 114.3 kg (252 lb) 11/16/2019 10:34 AM CDT Height 177.8 cm (5' 10 ) 11/16/2019 10:34 AM CDT Body Mass Index 36.16 11/16/2019 10:34 AM CDT documented in this encounter Functional [...] Progress Notes * Danny Blackwell MD - 11/16/2019 11:15 AM CDT Chief Complaint: Postop Followup (DOS: 10/15/2019 - 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 He reports going to physical therapy at our facility 3 times per week. They are trying to transition from walker to cane. He is taking Percocet 3 times per week prior to physical therapy only and would like a refill today. Denies any numbness, tingling or night pain. Minimal swelling. Denies any concerns today. ROS: See HPI for pertinent positives Problem List: Patient Active Problem List Diagnosis ??? Essential hypertension ??? Paroxysmal atrial fibrillation ([facility]/HCC) ??? long term care pharmacist current use of anticoagulant therapy ??? Obstructive sleep apnea ??? Hyperlipidemia ??? Diabetes (CMS/HCC) ??? Coronary artery disease ??? 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 Cardiovascular stress test abnormal ??? Arthritis of knee ??? Derangement of medial meniscus, left ??? Encounter for follow-up examination after completed treatment for conditions other than malignant neoplasm ??? Heartburn ??? Knee pain ??? Mechanical complication of internal orthopedic device, implant or graft, initial encounter ([facility]) ??? Patella-femoral syndrome ??? Pes anserine bursitis ??? Recurrent ventral incisional hernia ??? Abdominal pain ??? Failure of total knee replacement, initial encounter ([facility]) ??? S/P coronary artery stent placement ??? Prosthetic knee implant failure ([facility]) ??? Status post revision of total replacement of right knee History: Past Medical History: Diagnosis Date ??? Abnormal stress test ??? Arthritis ??? 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 Coronary artery disease ??? Diabetes ([facility]/HCC) ??? Fatigue ??? GERD (gastroesophageal reflux disease) ??? Headache ??? Hyperlipidemia ??? Hypertension has had elevated B/P readings ??? Kidney stone ??? SARAI on CPAP ??? Paroxysmal atrial fibrillation (CMS/HCC) ??? PONV (postoperative nausea and vomiting) Past Surgical History: Procedure Laterality Date ??? CARDIAC CATHETERIZATION 01/04/2018 occluded prox RCA w/well developed [id number]-[id number]-[id number] collaterals lvef 55-60% ??? CARDIAC CATHETERIZATION 11/13/2018 ??? FRACTURE SURGERY ??? 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 HERNIA REPAIR ??? KNEE ARTHROPLASTY Bilateral ??? LITHOTRIPSY ??? XA ABLATION 05/19/2016 ??? XA CORONARY INTERVENTION 03/24/2018 HORTICULTURAL NURSERY ASSISTANT PCI-mid RCA Family History Problem Relation Name Age of Onset ??? Hypertension Mother ??? Hypertension Sister ??? Cancer Brother ??? Diabetes Brother ??? Other (PVD) Brother ??? Hypertension Sister ??? No Known Problems Father Social History Tobacco Use ??? Smoking status: Never Smoker ??? Smokeless tobacco: Never Used Substance Use Topics ??? Alcohol use: Yes Comment: social ??? Drug use: No Medications: Current Outpatient Medications: ??? amitriptyline 50 [...] mg by mouth daily., Disp: , Rfl: Allergies Allergen Reactions ??? Doxycycline Other (see comment) Blisters in the mouth ? ? Tetracyclines & Related Other (see comment) Blisters in the mouth Objective: Filed Vitals: 11/16/19 1034 Weight: 114.3 kg (252 lb) Height: 5' 10 (1.778 m) Body mass index is 36.16 kg/m??. Physical Exam: Constitutional: Alert and in no acute distress. Neurological: The patient was oriented to person, place, and time. Eyes: The sclera and conjunctiva were normal ENT: Hearing was normal. Neck: The appearance of the neck was normal. Cardiovascular: Normal pulses. Pulmonary: No respiratory distress. Skin: No injuries or skin lesions. Musculoskeletal: Patient has quite a bit of soreness in his quad muscle with palpation. He has weakness with knee extension but seems to do pretty well with his walker as far as ambulation goes with mild gait abnormality. His knee range of motion is 0 to about 80 degrees here in the office but as Iunderstand it he is getting 95 degrees with therapy. Soft tissue fullness is present but no erythema. His incision is in good condition with no drainage. Results: X-ray was reviewed demonstrating that his revision knee components are well aligned with no evidence of loosening Assessment: Encounter Diagnose(s) ICD-10-CM ICD-9-CM SNOMED CT(R) 1. Failure of total knee replacement, initial encounter ([facility]) T84.018A 996.47 PROSTHETIC JOINT MECHANICAL FAILURE oxyCODONE-acetaminophen 5-325 MG tablet Z96.659 V43.65 Plan: Patient is done very well as far as pain relief as he is using very little pain medication. It is his strength and functional status that I am concerned about and he also recognizes the need for morestrengthening but also range of motion. He will continue with physical therapy. I did refill his Percocet which he needs to use prior to therapy in order to improve his ability to participate. I will see him back in 2 weeks Follow up: Return in about 2 weeks (around 11/30/2019). DANNY BLACKWELL MD documented in this encounter Plan of Treatment Upcoming Encounters Date Type Department Care Team (Late st Contact Info) Description 04/25/2024 11:00 AM SOLUTION DESIGN ENGINEER Appointment [facility] [address] [place] [address] Ti Bonilla MD [address] [place] [phone] 05/23/2024 3:30 PM SOLUTION DESIGN ENGINEER Office Visit [facility] [address] [place] [address] Jyoti Escobar MD [address] [place] [phone] documented as of this encounter Visit Diagnoses Diagnosis Failure of total knee replacement, initial encounter ([facility])- Primary documented in this encounter Care Teams Bobbin Inspector Relationship Specialty Start Date End Date Vernon Mercedes MD [address] [place] [address] PCP - General FAMILY PRACTICE 10/27/15 12/02/21 [place] [address] [employer] Nail Assembly Machine Operator CARDIOVASCULAR DISEASE 08/19/16 [place] [address] CLINICAL CARDIAC ELECTROPHYSIOLOGY 06/16/17 Danny Blackwell MD [address] [place] [address] ORTHOPAEDIC SURGERY 05/01/19 documented as of this encounter
--- OUTSIDE RECORDS SUMMARY | 2024-04-23 04:27 | XMS_ITS | Encounter Summary ---
Author Organization [facility] Address [address] [place] [address]. [place], [place] [address] [place] [address] Care Team Providers Care Taxi Driver Supervisor Name Role Phone Vernon Mercedes MD Primary Care Provider [phone] Evaristo Allan MD Unavailable UnavailRaul Suresh MD Unavailable Unavailabl Danny Lopes MD Unavailable [phone] Encounter Details Date Type Department Care Team (Latest Contact Info) Description 10/26/2019 9:19 AM CDT - 10/26/2019 11:59 PM CDT Hospital Encounter [facility] [address] [place] [address] Danny Blackwell MD [address] [place] [address] Discharge Disposition: Home or Self [...] 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 No / Unsure 10/26/2019 7:31 AM CDT documented as of this encounter [...] ilure of total knee replacement, initial encounter ([facility]) Take 1 tablet (10 mg total) [...] st Contact Info) Description 04/25/2024 11:00 AM GRADE SETTER Appointment [facility] [address] [place] [address] [place] [address] Ti Bonilla MD [address] [place] [phone] 05/23/2024 3:30 PM GRADE SETTER Office Visit [facility] [address] [facility] [place] [address] Jyoti Escobar MD [address] [place] [address] [phone] documented as of this encounter Procedures Procedure Name Priority Date/Time Associated Diagnosis Comments XR PELVIS AP+RT HIP 1V Routine 10/26/2019 10:25 AM CDT Bilateral hip pain XR KNEE STAND AP VANITA ONLY Routine 10/26/2019 9:40 AM CDT Failure of total knee replacement, initial encounter XR KNEE RT 2V Routine 10/26/2019 9:40 AM CDT Failure of total knee replacement, initial encounter documented in this encounter Results * XR PELVIS AP+RT HIP 1V (10/26/2019 10:25 AM CDT) Anatomical Region Laterality Modality Pelvis, Hip Radiographic Shannan ging 10/26/2019 11:4 7 AM CDT Impressions 10/26/2019 11:52 AM CDT IMPRESSION: No acute findings. ??Stable degenerative changes as described. Interpreted By: Matteo Buenrostro MD, 10/26/2019 11:47 AM Narrative 10/26/2019 11:52 AM CDT Examination: Pelvis and right hip. Exam time: 0932 hours. Clinical history: Right hip pain. Comparison: 09/21/2019. Technique: Weightbearing AP pelvis centered for the hips and weightbearing frog lateral right hip. Findings: No fracture, dislocation or other acute bony abnormality is identified. ??Relatively symmetric moderate to marked degenerative changes in the hips are again evident manifested by joint space narrowing, subchondral sclerosis and femoroacetabular osteophyte formation. ??No other significant bone or joint abnormality is noted. ??Pelvic phleboliths again noted. Procedure Note Matteo Buenrostro MD - 10/26/2019 Examination: Pelvis and right hip. Exam time: 0932 hours. Clinical history: Right hip pain. Comparison: 09/21/2019. Technique: Weightbearing AP pelvis centered for the hips and weightbearingfrog lateral right hip. Findings: No fracture, dislocation or other acute bony abnormality isidentified. Relatively symmetric moderate to marked degenerative changesin the hips are again evident manifested by joint space narrowing,subchondral sclerosis and femoroacetabular osteophyte formation. No othersignificant bone or joint abnormality is noted. Pelvic phleboliths againnoted. IMPRESSION: No acute findings. Stable degenerative changes as described. Interpreted By: Matteo Buenrostro MD, 10/26/2019 11:47 AM Danny Blackwell MD GENERAL IMAGING Final Result * XR KNEE RT 2V (10/26/2019 9:40 AM CDT) Anatomical Region Laterality Modality Knee Radiographic Shannan ging 10/26/2019 12:0 6 PM CDT Impressions 10/26/2019 12:18 PM CDT IMPRESSION: No acute findings. ??Expected early postoperative changes on the right. Interpreted By: Matteo Buenrostro MD, 10/26/2019 12:06 PM Narrative 10/26/2019 12:18 PM CDT Examination: Bilateral knees. Exam time: 0856 hours. Clinical history: Surgical aftercare. ??Right knee pain. Comparison: 10/17/2019. Technique: Bilateral weightbearing PA and sunrise and weightbearing lateral views on the right. Findings: No fracture, dislocation or other acute bony abnormality is identified. ??Revision arthroplasty on the right remains in place with the components in satisfactory alignment and position. ??Arthroplasty on the left remains in place with the components in stable alignment in single projection. ??No other significant bone or joint abnormality is noted. ??Gas in the soft tissues on the right is consistent with recent surgery. ??The skin melanie have been removed. Procedure Note Matteo Buenrostro MD - 10/26/2019 Examination: Bilateral knees. Exam time: 0856 hours. Clinical history: Surgical aftercare. Right knee pain. Comparison: 10/17/2019. Technique: Bilateral weightbearing PA and sunrise and weightbearinglateral views on the right. Findings: No fracture, dislocation or other acute bony abnormality isidentified. Revision arthroplasty on the right remains in place with thecomponents in satisfactory alignment and position. Arthroplasty on theleft remains in place with the components in stable alignment in singleprojection. No other significant bone or joint abnormality is noted. Gasin the soft tissues on the right is consistent with recent surgery. Theskin melanie have been removed. IMPRESSION: No acute findings. Expected early postoperative changes on the right. Interpreted By: Matteo Buenrsotro MD, 10/26/2019 12:06 PM Danny Blackwell MD GENERAL IMAGING Final Result * XR KNEE STAND AP VANITA ONLY (10/26/2019 9:40 AM CDT) Anatomical Region Laterality Modality Knee Radiographic Shannan ging 10/26/2019 12:0 6 PM CDT Impressions 10/26/2019 12:18 PM CDT IMPRESSION: No acute findings. ??Expected early postoperative changes on the right. Interpreted By: Matteo Buenrostro MD, 10/26/2019 12:06 PM Narrative 10/26/2019 12:18 PM CDT Examination: Bilateral knees. Exam time: 0856 hours. Clinical history: Surgical aftercare. ??Right knee pain. Comparison: 10/17/2019. Technique: Bilateral weightbearing PA and sunrise and weightbearing lateral views on the right. Findings: No fracture, dislocation or other acute bony abnormality is identified. ??Revision arthroplasty on the right remains in place with the components in satisfactory alignment and position. ??Arthroplasty on the left remains in place with the components in stable alignment in single projection. ??No other significant bone or joint abnormality is noted. ??Gas in the soft tissues on the right is consistent with recent surgery. ??The skin melanie have been removed. Procedure Note Matteo Buenrostro MD - 10/26/2019 Examination: Bilateral knees. Exam time: 0856 hours. Clinical history: Surgical aftercare. Right knee pain. Comparison: 10/17/2019. Technique: Bilateral weightbearing PA and sunrise and weightbearinglateral views on the right. Findings: No fracture, dislocation or other acute bony abnormality isidentified. Revision arthroplasty on the right remains in place with thecomponents in satisfactory alignment and position. Arthroplasty on theleft remains in place with the components in stable alignment in singleprojection. No other significant bone or joint abnormality is noted. Gasin the soft tissues on the right is consistent with recent surgery. Theskin melanie have been removed. IMPRESSION: No acute findings. Expected early postoperative changes on the right. Interpreted By: Matteo Buenrostro MD, 10/26/2019 12:06 PM Danny Blackwell MD GENERAL IMAGING Final Result documented in this encounter Visit Diagnoses Diagnosis Failure of total knee replacement, initial encounter ([facility]) Bilateral hip pain Pain in joint, pelvic region and thigh documented in this encounter Care Teams Taxi Driver Supervisor Relationship Specialty Start Date End Date [place] [place] [address] PCP - General FAMILY PRACTICE 10/27/15 12/02/21 Evar[place] [place] [address] [place] Twisting Frame Changer CARDIOVASCULAR DISEASE 08/19/16 Raul [place] [address] CLINICAL CARDIAC ELECTROPHYSIOLOGY 06/16/17 Danny Blackwell MD [address] [place], [place] [phone] ORTHOPAEDIC SURGERY 05/01/19 documented as of this encounter
--- OUTSIDE RECORDS SUMMARY | 2024-04-23 04:27 | XMS_ITS | Encounter Summary ---
Author Organization [facility] Address [address] [place] [address]. [place], [place] [address] [place] [address] Care Team Providers Care Catalog Specialist Name Role Phone Vernon Mercedes MD Primary Care Provider [phone] Evaristo Allan MD Unavailable Unavailabl e Raul Santana MD Unavailable Unavailabl e Danny Blackwell MD Unavailable [phone] Reason for Visit * Reason Comments Jnt Pain/Knee * Physical Medicine (Routine) - Closed Specialty Diagnoses / Procedures Referred By Charito ledbetter Referred To Contact PHYSICAL THERAPY Diagnoses Prosthetic joint implant failure, subsequent encounter Aftercare following right knee joint replacement surgery Dari Piña FNP[facility] [address] [place] [address] Phone: tel: fax: Referral ID Status Reason Start Date Expiration Date V isits Requested Visits Authorized [id number] Closed Physical Therapy 10/16/2019 11/14/2020 60 60 Encounter Details Date Type Department Care Team (Late st Contact Info) Description 11/12/2019 3:05 PM CDT - 11/12/2019 11:59 PM T Hospital Encounter [facility] [address] [place] [address] Dari Piña FNP-[facility] [address] [place] [address] Rossy Cardenas, DPT Jnt Pain/Knee Discharge Disposition: [...] 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 CARDIAC CATHETERIZATION 11/13/2018 ??? FRACTURE SURGERY ??? 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 HERNIA REPAIR ??? KNEE ARTHROPLASTY Bilateral ??? LITHOTRIPSY ??? XA ABLATION 05/19/2016 ??? XA CORONARY INTERVENTION 03/24/2018 CONFIGURATION MANAGEMENT ADVISOR PCI-mid RCA Subjective: Diagnosis: R TKA Referring Physician: ISAURO Sarah Onset Date: 10/15/19 Treatment Day: 7 Total Approved Visits: 60 Therapy Plan of Care: 3x/wk for 4 wks Subjective Note: Patient reports that his calf has been having muscle spasms for the past few days,but taking his muscle relaxer alleviates the spasms. He is ambulating with a walker, but is wantingto progress to a cane. Location of Pain: R knee Pre-treatment Pain: 0/10 Post-treatment Pain: 0/10 Restriction/Precaution: WBAT Objective: R knee flexion: AROM 87 degrees PROM 90 degrees Treatment Performed: Therapeutic Exercise - 76913 Minutes Performed: 35 minutes Intervention: - PROM flexion/extension - heelslide with strap 5' hold x 10 - DKTC on peanut ball 2x10 - quad set 10 sec x10 - SAQ 5 sec x 20 - supine hip abduction x20 HELD -SLR x10 N - clamshells x 20 B Manual Therapy - 74503 Minutes Performed: 10 minutes Intervention: - IASTM to R quad Neuromuscular Reeducation - 04518 Minutes Performed: Intervention: HELD- Citizen [place] to R quad with quad sets and SAQ Therapeutic Activities - 97714 Minutes Performed: Modalities Minutes Performed: 15' Intervention: - gameready to R knee x 15 min Total Treatment Time: 60 minutes Education Performed: Updated HEP. ASSESSMENT: Note: Patient demonstrates improvement in AROM/PROM today. Patient able to achieve terminal extension today. He was also able to increase SLR repetitions, with minimal to no extensor lag. Overall, heis progressing well towards therapeutic goals, with the exception of knee flexion range of motion, which patient is slowly improving. PLAN: Plan for next visit: Continue range of motion and strengthening. Add Nustep next visit to work on range of motion and add bridge. HEP: heel slide, quad set, HS stretch seated, clamshell, SAQ, SLR, bridge documented in this encounter Plan of Treatment Upcoming Encounters Date Type Department Care Team (Late st Contact Info) Description 04/25/2024 11:00 AM SENIOR HEALTH PHYSICS TECHNICIAN Appointment [facility] [address] [place] [address] Ti Bonilla MD [address] [place] [phone] 05/23/2024 3:30 PM SENIOR HEALTH PHYSICS TECHNICIAN Office Visit [facility] [address] [place] [address] Joyti Escobar MD [address] [place] [address] documented as of this encounter Visit Diagnoses Diagnosis Status post revision of total replacement of right knee documented in this encounter Care Teams Catalog Specialist Relationship Specialty Start Date End Date Vernon Mercedes MD [address] [place] [phone] PCP - General FAMILY PRACTICE 10/27/15 12/02/21 Evaristo Allan MD [address] [place] [address] [place] Sweatband Drummer CARDIOVASCULAR DISEASE 08/19/16 Raul Santana MD [address] [place] [address] CLINICAL CARDIAC ELECTROPHYSIOLOGY 06/16/17 Danny Blackwell MD [address] [place] [address] ORTHOPAEDIC SURGERY 05/01/19 documented as of this encounter
--- OUTSIDE RECORDS SUMMARY | 2024-04-23 04:27 | XMS_ITS | Encounter Summary ---
Author Organization [facility] Address [address] [place] [address]. [place], [place] [id number] [place] [address] Care Team Providers Care Word Processing Operator Name Role Phone Vernon Mercedes MD Primary Care Provider [phone] Evaristo Allan MD Unavailable Unavailabl Raul Duran MD Unavailable Unavailabl Danny Lopes MD Unavailable [phone] Encounter Details Date Type Department Care Team (Latest Contact Info) Description 11/12/2019 Travel Social History Tobacco Use Types Packs/Day [...] st Contact Info) Description 04/25/2024 11:00 AM INSURANCE COUNSELOR Appointment [facility] [address] [place] [address] Ti Bonilla MD [address] [place] [phone] 05/23/2024 3:30 PM INSURANCE COUNSELOR Office Visit [facility] [address] [place] [phone] Jyoti Escobar MD [address] [place] [phone] documented as of this encounter Visit Diagnoses Not on filedocumented in this encounter Care Teams Word Processing Operator Relationship Specialty Start Date End Date Vernon Mercedes MD [address] [place] [phone] PCP - General FAMILY PRACTICE 10/27/15 12/02/21 [place] [address] [employer] CARDIOVASCULAR DISEASE 08/19/16 Raul Santana MD [address] [place] [address] CLINICAL CARDIAC ELECTROPHYSIOLOGY 06/16/17 Danny Blackwell MD [address] [place] [address] ORTHOPAEDIC SURGERY 05/01/19 documented as of this encounter
--- OUTSIDE RECORDS SUMMARY | 2024-04-23 04:28 | XMS_ITS | Encounter Summary ---
Author Organization [facility] Address [address] [place] [address]. [place], [place] [address] [place] [address] Care Team Providers Care Resistor Inspector Name Role Phone Vernon Mercedes MD Primary Care Provider [phone] Evaristo Allan MD Unavailable Unavailabl Raul Duran MD Unavailable Unavailabl e Danny Blackwell MD Unavailable [phone] Reason for Visit * Reason Onset Date Comments Question 10/23/2019 Encounter Details Date Type Department Care Team (Late st Contact Info) Description 10/23/2019 Telephone [facility] [address], [place] [phone] Kady Vann, RN Question Social History Tobacco Use Types Packs/Day Years [...] 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 No / Unsure 10/24/2019 9:34 AM CDT documented as of this encounter [...] documented in this encounter Progress Notes * ISAURO Rodriguez - 10/24/2019 12:10 PM CDTAddended by: JONATHAN MENESES on: 10/24/2019 12:10 PM Modules accepted: Orders * Kady Vann RN - 10/24/2019 12:04 PM CDTAddended by: KADY VANN on: 10/24/2019 12:04 PM Modules accepted: Orders * Kady Vann RN - 10/24/2019 12:02 PM CDT upset because prescription not sent to correct pharmacy. She wants prescription sent to [facility] in [place]. Jonathan COIN BOX INSPECTOR aware and she will send in a new prescription. [facility] notified and prescription cancelled. * ISAURO Rodriguez - 10/23/2019 12:27 PM CDTAddended by: JONATHAN MENESES on: 10/23/2019 12:27 PM Modules accepted: Orders * Kady Vann RN - 10/23/2019 12:06 PM CDT Patient's called into office stating that patient needed pain medication stronger than Oxycontin. He has used all of his Oxycontin without good pain management. would also like a refill on Valium. Patient missed physical therapy this morning (his first appointment) due to oversleeping. states that he slept from 300-0930 this morning, which RN assured her that he must to relatively comfortable if he slept that long. She disagreed with me. continues to states that he needs something more than Oxycontin (Jonathan SCHROEDER declined) and that the patient will be calling our office. I encouraged him to call with any additional needs. He is encouraged to attend physical therapy, ice, elevate, and use Percocet. If no relief, he needs to make an appointment for re-evaluation. She verbalizes understanding and denies any additional questions or concerns. documented in this encounter Plan of Treatment Upcoming Encounters Date Type Department Care Team (Late st Contact Info) Description 04/25/2024 11:00 AM FILE CLERK Appointment [facility] [place] [address] Ti Bonilla MD [address] [place] [phone] 05/23/2024 3:30 PM FILE CLERK Office Visit [facility] [address] [place] [address] Jyoti Escobar MD [address] [place] [address] documented as of this encounter Visit Diagnoses Diagnosis Prosthetic joint implant failure, subsequent encounter- Primary documented in this encounter Care Teams Resistor Inspector Relationship Specialty Start Date End Date Vernon Mercedes MD [address] [place] [phone] PCP - General FAMILY PRACTICE 10/27/15 12/02/21 Evaristo Allan MD [address] [place] [phone] [place] [employer] CARDIOVASCULAR DISEASE 08/19/16 Raul Santana MD [address] [place] [address] CLINICAL CARDIAC ELECTROPHYSIOLOGY 06/16/17 Danny Blackwell MD [address] [place] [address] ORTHOPAEDIC SURGERY 05/01/19 documented as of this encounter
--- OUTSIDE RECORDS SUMMARY | 2024-04-23 04:28 | XMS_ITS | Encounter Summary ---
Author Organization [facility] Address [address] [place] [address]. [place], [place] [address] [place] [address] Care Team Providers Care Shipping Inspector Name Role Phone Vernon Mercedes MD Primary Care Provider [phone] Evaristo Allan MD Unavailable UnavailRaul Suresh MD Unavailable Unavailabl Danny Lopes MD Unavailable [phone] Encounter Details Date Type Department Care Team (Late st Contact Info) Description 09/21/2019 [facility] Documentation [facility] [place] [phone] Sasha Rod APRN [address] [place] [address] Social History Tobacco Use Types Packs/Day Years Used Date Smoking Tobacco: Never Smokeless Tobacco: Never Alcohol Use Standard Drinks/Week Comments Yes 0 (1 standard drink = 0.6 oz pur e alcohol) Sex and Gender Information Value Date Recorded Sex Assigned at Not on file Legal Sex Male 10:30 AM CDT Gender Identity Not on file Sexual Orientation Not on file 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 No / Unsure 09/21/2019 10:49 AM CDT documented as of this encounter Progress Notes * Sasha Rod APRN - 09/21/2019 2:20 PM CDT Prescription sent to [facility]. documented in this encounter Plan of Treatment Upcoming Encounters Date Type Department Care Team (Late st Contact Info) Description 04/25/2024 11:00 AM DEATH CLAIM CLERK Appointment [facility] [address] [place] [address] Ti Bonilla MD [address] [place] [phone] 05/23/2024 3:30 PM DEATH CLAIM CLERK Office Visit [facility] [address] [place] [phone] Jyoti Escobar MD [address] [place] [address] documented as of this encounter Visit Diagnoses Diagnosis Arthritis of knee- Primary Unspecified arthropathy, lower leg documented in this encounter Additional Health Concerns Infection Onset Date Last Indicated Resolved Time MRSA Comment:Negative MRSA 05/201903/11/2017 03/11/2017 10/03/2019 10:08 AM CDT documented as of this encounter Care Teams Shipping Inspector Relationship Specialty Start Date End Date Vernon Mercedes MD [address] [place] [address] PCP - General FAMILY PRACTICE 10/27/15 12/02/21 Evaristo Allan MD [address] [place] [address] [place] [employer] CARDIOVASCULAR DISEASE 08/19/16 Raul Santana MD [address] [place] [address] CLINICAL CARDIAC ELECTROPHYSIOLOGY 06/16/17 Danny Blackwell MD [address] [place] [address] ORTHOPAEDIC SURGERY 05/01/19 documented as of this encounter
--- OUTSIDE RECORDS SUMMARY | 2024-04-23 04:28 | XMS_ITS | Encounter Summary ---
Author Organization [facility] Address [address] [place] [address]. 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 Encounter Details Date Type Department Care Team (Latest Contact Info) Description 10/26/2019 8:45 AM CDT Office Visit [facility] [address] [address] Danny Blackwell MD [address] [place], [place] [phone] Postop Followup (DOS: 10/15/2019 - Failed right [...] 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 Not on file [...] - - Weight 114.3 kg (252 lb) 10/26/2019 8:41 AM CDT Height 177.8 cm (5' 10 ) 10/26/2019 8:41 AM CDT Body Mass Index 36.16 10/26/2019 8:41 AM CDT documented in this encounter Functional [...] Progress Notes * Danny Blackwell MD - 10/26/2019 8:45 AM CDT Chief Complaint: Postop Followup (DOS: 10/15/2019 - 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 He states that he is having a lot more pain than with any past surgeries. He locates his pain above the RIGHT knee and through the middle. Denies any numbness or tingling. He is needing to take Percocet 1 tablet every 4 hours and states that his pain is not managed. He is unable to sleep or get comfortable. Night pain. Patient has completed 2 sessions of physical therapy and tolerated well. Cool removed from incision. Patient tolerated well. ROS: See HPI for pertinent positives Problem List: Patient Active Problem List Diagnosis ??? Essential hypertension ??? Paroxysmal atrial fibrillation (CMS/HCC) ??? MCC current use of anticoagulant therapy ??? Obstructive sleep apnea ??? Hyperlipidemia ??? Diabetes (CMS/HCC) ??? Coronary artery disease ??? 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 Cardiovascular stress test abnormal ??? Arthritis of knee ??? Derangement of medial meniscus, left ??? Encounter for follow-up examination after completed treatment for conditions other than malignant neoplasm ??? Heartburn ??? Knee pain ??? Mechanical complication of internal orthopedic device, implant or graft, initial encounter ([facility]) ??? Patella-femoral syndrome ??? Pes anserine bursitis ??? Recurrent ventral incisional hernia ??? Abdominal pain ??? Failure of total knee replacement, initial encounter ([facility]) ??? S/P coronary artery stent placement ??? 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 Status post revision of total replacement [...] CATHETERIZATION 01/04/2018 occluded prox RCA w/well developed [id number]-lfpto collaterals lvef 55-60% ??? CARDIAC CATHETERIZATION 11/13/2018 ??? FRACTURE SURGERY ??? 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 HERNIA REPAIR ??? KNEE ARTHROPLASTY Bilateral ??? LITHOTRIPSY ??? XA ABLATION 05/19/2016 ??? XA CORONARY INTERVENTION 03/24/2018 [facility] AIDE PCI-mid RCA Family History Problem Relation Name [...] at bedtime. , Disp: , Rfl: ??? cyclobenzaprine 10 MG tablet, Take 1 tablet (10 mg total) by mouth 3 (three) times daily as needed for Muscle Spasms., Disp: 30 tablet, Rfl: 0 ??? diazePAM 5 MG tablet, Take 1 tablet (5 mg total) by mouth every 8 (eight) hours as needed (spasms)., Disp: 10 tablet, Rfl: 0 ??? famotidine 20 MG tablet, Take 2 [...] before meals. , Disp: , Rfl: ??? ondansetron (ZOFRAN ODT) 4 MG disintegrating tablet, Take 1 tablet (4 mg total) by mouth every 8 (eight) hours as needed for Nausea., Disp: 20 tablet, Rfl: 0 ??? oxyCODONE-acetaminophen (PERCOCET) 7.5-325 MG tablet, Indications: Chronic Pain 1-2 tablets PO q 6 hrs prn, Disp: 30 tablet, Rfl: 0 ??? oxyCODONE-acetaminophen 5-325 MG tablet, Take 1-2 tablets by mouth every 4 (four) hours as needed for Pain. Indications: Chronic Pain, Disp: 40 tablet, Rfl: 0 ??? PRADAXA 150 MG [...] Blisters in the mouth Objective: Filed Vitals: 10/26/19 0841 Weight: 114.3 kg (252 lb) Height: 5' [...] injuries or skin lesions. Musculoskeletal: Patient has severe tenderness with palpation of his quad musculature and is only able to flex his knee to about 70 degrees although he has full extension but no quad activation. There is no erythema or drainage associated with his incision and a small effusion is present. He is neur ovascularly intact. He does report groin pain with hip rotation Results: X-rays were obtained of the right knee demonstrating that his revision implants appear to be well-positioned and stable without any acute bony injury. X-rays were obtained of the right hip also demonstrating no acute changes. He does have some fairly mild degenerative changes Assessment: Encounter Diagnose(s) ICD-10-CM ICD-9-CM SNOMED CT(R) 1. Failure of total knee replacement, initial encounter ([facility]) T84.018A 996.47 PROSTHETIC JOINT MECHANICAL FAILURE XR KNEE STAND AP VANITA ONLY Z96.659 V43.65 XR KNEE RT 2V oxyCODONE-acetaminophen (PERCOCET) 7.5-325 MG tablet cyclobenzaprine 10 MG tablet 2. Bilateral hip pain M25.551 719.45 HIP PAIN XR PELVIS AP+RT HIP 1V M25.552 Plan: I do not have a good reason for the amount of pain the patient is experiencing. I have stressed theneed to activate his quad. He is participating with therapy. I will refill his Percocet. I am not refilling his OxyContin or Valium. I will give him Flexeril as a muscle relaxant and he also is already taking gabapentin. I have stressed the need to work hard on range of motion as he is losing an opp ortunity. His pain is not associated with his hip as his x-rays were normal. I have discussed with him the fact that he has no structural issues that I can see and he needs to keep pushing through the pain. I will see him in 2 weeks Follow up: Return in about 2 weeks (around 11/09/2019). DANNY BLACKWELL MD documented in this encounter Plan of Treatment Upcoming Encounters Date Type Department Care Team (Late st Contact Info) Description 04/25/2024 11:[address] CLERK Appointment [place] [facility] [address] [place] [address] Ti Bonilla MD [address] [place] [phone] 05/23/2024 3:[address] CLERK Office Visit [facility] [address] [place] [address] Jyoti Escobar MD [address] [place] [address] documented as of this encounter Results * XR PELVIS AP+RT [...] Failure of total knee replacement, initial encounter ([facility])- Primary Bilateral hip pain Pain in joint, pelvic region and thigh Failure of total knee replacement, initial encounter ([facility]) Bilateral hip pain Pain in joint, pelvic region and thigh documented in this encounter Care Teams Collaborative Teacher Relationship Specialty Start Date End Date Vernon Mercedes MD [address] [place] [phone] PCP - General FAMILY PRACTICE 10/27/15 12/02/21 Evaristo Allan MD [facility] [place] [address] [place] [employer]ol[employer]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
--- OUTSIDE RECORDS SUMMARY | 2024-04-23 04:28 | XMS_ITS | Encounter Summary ---
Author Organization [facility] Address [address] [place] [address]. [place], [place] [address] [place] [address] Care Team Providers Care Environmental Science Professor Name Role Phone Vernon Mercedes MD Primary Care Provider [phone] Evaristo Allan MD Unavailable Unavailabl e Raul Santana MD Unavailable Unavailabl e Danny Blackwell MD Unavailable [phone] Reason for Visit * Auth/Cert Specialty Diagnoses / Procedures Referred By Contac t Referred To Contact Diagnoses [id number] Procedures Revision RIGHT Total Knee ArthroplastyNate notifiedInpatient Referral ID Status Reason Start Date Expiration Date Visits Re quested Visits Authorized [id number] 1 1 Encounter Details Date Type Department Care Team (Late st Contact Info) Description 10/15/2019 11:55 AM CDT Anesthesia Event [facility] [address] [place] [address] Elie Ulrich MD [facility] [place] [address] Anesthesia Record Procedure Summary Procedure Name Responsible Anesthesiologist Anesthesia Start Time Anesthesia Stop Time Revision RIGHT Total Knee Arthroplasty (Right: Knee) Elie Ulrich MD 10/15/19 1155 10/15/19 1543 Events Date Time Event Comment 10/15/2019 1100 1108 AN RIVET THROWER Prepped 1155 An Start Patient ID and consent checked and patient reassessed. 1155 An Start Data 1155 Face Mask Applied 1206 An Block 1216 Anesthesia Ready 1235 An Tourn Inflated 300 mmHg 1310 An LMA Pt has SARAI, dif ficult to maintain patent airway with extra large OA. LMA placed and pt is ventilating with no difficulty. Did not convert to general 1335 Quick Note 60 min on tourn iquet, surgeon aware 1436 Quick Note 120 min on tour niquet, surgeon is aware 1451 An Tourn Deflated 136 minute s 1533 LMA Removed 1535 an stop data 1542 Post Anesthetic Care Handoff I completed my handoff to the receiving nurse during which we: 1. Identified the patient 2. Identified the responsible provider 3. Reviewed the pertinent medical history 4. Discussed the surgical course 5. Reviewed intra-op anesthesia management and issues during anesthesia 6. Set expectations for post-procedure period 7. Allowed opportunity for questions and acknowledgement of understanding. 1543 An Stop Meds Name Total midazolam 2 mg/2 mL injection 2 mg fentaNYL (SUBLIMAZE) 100 mcg/2 mL inject ion 100 mcg propofol (DIPRIVAN) 500 mg/50 mL injecti on 1,764.22 mg BUpivacaine 0.75%-dextrose 8.25% intrath ecal injection 2 mL morphine (PF) (ASTRAMORPH) 1 mg/mL injec tion 200 mcg dexamethasone (DECADRON) 4 mg/mL injecti on 8 mg metoclopramide (REGLAN) 5 mg/mL injectio n 10 mg phenylephrine 50 mg in NS 250 mL infusio n 3,900 mcg ROpivacaine (NAROPIN) 1% injection 20 mL ceFAZolin (ANCEF) 2 g in NS 100 mL IVPB 2 g tranexamic acid (CYKLOKAPRON) injection 1,000 mg 1,000 mg ketamine 50 mg/mL injection 100 mg lactated ringers infusion 2,000 mL sodium chloride 0.9% infusion 100 mL * Agents Name O2 Inspired Sevoflurane Sevoflurane Ancillary O2 * Blood No blood administrations on file. Lines, Drains, and Airways Type Details Placement Removal Surgical/Incision 10/15/19; 1041; Surgical Wound; Knee; Right; Xeroform, Fluffs, Webril, Double James Wrap 6 ; 10/18/19; 1421 10/15/19 1041 by Jocelyne Ortiz RN 10/18/19 1421 by Automatic Discharge Provider Peripheral IV Placement Date: 10/15/19; Placement Time: 1104; Placed Outside of This Facility?: No; Size: 20 G; Orientation: Right; Location: Forearm; Site Prep: Alcohol; Local Anesthetic: None; Inserted By: sara pagan; Insertion attempts: 1; Ultrasound-guided Placement?: No; Patient Tolerance: Tolerated well; Removal Date: 10/18/19; Removal Time: 0853 10/15/19 1104 by Sara Cope RN 10/18/19 0853 by Kimberly Orozco, RN Fernandez Catheter 10/15/19; 1215; I & O - Strict I&O or Critically ill requiring I&O Q1-2hrs; 1; Hand hygiene performed, Site cleansed with sterile antiseptic, Sterile gloves, drape and lubricant used, Catheter inserted using aseptic technique, Drainage bag secured below level of bladder, Closed system maintained; Double-lumen; Per Order 10/15/19 1215 by Jocelyne Ortiz RN 10/16/19 0611 by Mau Jackson Supraglottic Airway Placement Date: 10/15/19; Placement Time: 1310; Mask Ventilate: Easy; Airway Device: LMA; LMA Size: 4; Placed Outside of This Facility?: No; Placed By: PATRIZIA; Style: Classic; Insertion Attempts:1; Placement Verified By: Capnography, Chest Rise; Removal Date: 10/15/19; Removal Time: 1533 10/15/19 1310 by Matteo Lakhani CRNA 10/15/19 1533 by Matteo Lakhani CRNA documented in this encounter Social History Tobacco [...] 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 No / Unsure 10/15/2019 10:18 AM CDT documented as of this encounter Functional Status documented as of this encounter Mental Status * Question Answer Entry Date Author Status Because of a physical, mental, or emotional condition, do you have serious difficulty concentrating, remembering, or making decisions? No 10/15/2019 4:47 PM CDT Kaylyn Cohen R N Active * Because of a physical, mental, or emotional condition, do you have serious difficulty concentrating, remembering, or making decisions? Answer Entry Date Author Status No 10/15/2019 4:47 PM CDT Kaylyn Cohen RN Active documented in this encounter OR Notes * Anesthesia Postprocedure Evaluation - Alina Blount CRNA - 10/16/2019 9:35 AM CDT Anesthesia Post-op Note Evaristo Zelaya Procedure(s): Revision RIGHT Total Knee Arthroplasty Bairon notified Inpatient (Right Knee) Anesthesia type: spinal Vitals: 10/16/19 0822 BP: 106/70 Vitals: 10/16/19 0834 Pulse: 131 Vitals: 10/16/19 0834 Resp: 20 Vitals: 10/16/19 0834 Temp: 36.7 ??C Vitals: 10/16/19 0834 SpO2: 97% Comments: Patient has regained sensory and motor function following spinal and had good pain control overnight * Anesthesia Postprocedure Evaluation - Alina Blount CRNA - 10/15/2019 3:25 PM CDT Anesthesia Post-op Note Evaristo Zelaya Procedure(s): Revision RIGHT Total Knee Arthroplasty Bairon notified Inpatient (Right Knee) Anesthesia type: spinal Vitals: 10/15/19 1620 BP: 120/75 Vitals: 10/15/19 1620 Pulse: 92 Vitals: 10/15/19 1843 Resp: 16 Vitals: 10/15/19 1620 Temp: 36.1 ??C Vitals: 10/15/19 1620 SpO2: 92% Patient Location: Phase II/Outpatient Level of Consciousness: awake, alert and oriented Pain Management: adequate analgesia Airway Patency: patent Respiratory Status: acceptable, room air and spontaneous ventilation Cardiovascular Status: acceptable, blood pressure returned to baseline and stable Post-Op Nausea: none Postoperative Hydration: euvolemic Complications: no anesthesia complication * Anesthesia Procedure Notes - Matteo Lakhani CRNA - 10/15/2019 12:18 PM CDT Associated Order(s): Spinal Block Spinal Block Date/Time: 10/15/2019 12:06 PM Patient location during procedure: OR Reason for block: primary anesthetic Staffing Anesthesiology Provider: Matteo Lakhani CRNA Performed by: PATRIZIA Preanesthetic Checklist Completed: patient identified, site marked, surgical consent, pre-op evaluation, timeout performed,IV checked, risks and benefits discussed and monitors and equipment checked Spinal Block Patient position: sitting Prep: povidone-iodine Patient monitoring: continuous pulse oximetry and blood pressure Approach: midline Ultrasound-guided Placement: No Location: L3-4 L3-4 Attempts: 1 L4-5 Attempts: 1, Dose: 3 mL Needle Needle type: Pencil tip Needle gauge: 25 G Needle length: 5 cm Needle attempts: 1 Assessment Sensory level: T5 Events: positive free flow CSF Additional Notes SAB placed: Prep, drape. 3ml 1% lido local. Introducer placed. SAB needle placed. + CSF, - Blood. Injected meds as noted. Patient sitting for 3 min. Patient tolerated procedure well. * Anesthesia Procedure Notes - Matteo Lakhani CRNA - 10/15/2019 11:34 AM CDT Associated Order(s): Peripheral Block Peripheral Nerve Block Peripheral Block Procedure Start Time: 10/15/2019 11:13 AM Procedure Stop Time: 10/15/2019 11:16 AM Patient Location During Procedure: pre-op Reason for Block: at surgeon's request, post-op pain management and primary anesthetic Preanesthetic Checklist Completed: patient identified, site marked, consent, pre-op evaluation, timeout performed, IV checked, risks and benefits discussed and monitors and equipment checked Procedure Information Patient Position: Supine Prep: Chloraprep Patient Monitoring: blood pressure, continuous pulse ox, ECG/EKG and heart rate Block Type: Femoral at Adductor Canal Laterality: right Injection Technique: single-shot Procedures: ultrasound guided Draping: sterile technique maintained Needle Needle type: Medline Echogenic. Needle Gauge: 22 G (24G) Needle Length: 3 1/8 in (4cm) Needle Localization: anatomical landmarks and ultrasound guidance Needle Insertion Depth: 2 cm Test Dose: negative Local Volume: 20 mL Needle Attempts: 1 Assessment Injection Assessment: incremental injection, local visualized surrounding nerve on ultrasound, negative aspiration for heme, no apparent complications, no paresthesia on injection and paresthesia absent Paresthesia Pain: none Heart rate change: no Additional Notes Risks explained: difficult placement, may be ineffective, bleeding, infection, nerve damage. Benefits explained to patient: may lower sedation and/or general anesthetic dose, possibly less pain afterprocedure.Timeout performed including patients name, date, and laterality. Patient participated in the timeout. Antiseptic prep. Sterile probe covered Right femoral artery located under US guidance, 20 mls of 1% ropivicaine with 1;200K epi in in 3-5 ml increments with aspiration prior. No heme no parasthesia * Anesthesia Preprocedure Evaluation - Alina Blount CRNA - 10/11/2019 9:51 AM CDT Anesthesia ROS/MED History Reviewed: Patient summary , ECG, Family history anesthesia, Anesthesia history , Medications , Labs , Images/Studies Pre-Anesthetic State: alert, awake and responds appropriately history of anesthetic complications (PONV with 1 surgery years ago), (PONV) Pulmonary (+) sleep apnea, (CPAP) Cardiovascular Exercise tolerance:good (+) hypertension (metoprolol this am), (well controlled), CAD, (Stent), arrhythmia (NSR on EKG 09/28/2019), (A-fib), hyperlipidemia ROS comment: 10/2018: heart cath with mid RCA lesion. Had stent placed. Cardiology 09/28/2019 Recommendations/Plan: Mr. Zelaya' cardiac status appears clinically stable at the present time without consistent ongoing anginal chest pain, overt symptoms of congestive heart failure, or clinical evidence of hemodynamically significant arrhythmias. His blood pressure is well controlled in the office today. His last echocardiogram in 2016 demonstrated an LVEF of 63% with mild tricuspid regurgitation. His last cardiac catheterization in October 2018 revealed patent proximal and mid RCA stents with a 40% mid RCA lesion, which was not significant with an FFR of 0.9. He reports being able to perform at least 4 METs of activity without exertional symptoms. ?? His planned knee replacement is an intermediate risk procedure from a cardiovascular standpoint. I believe that his cardiovascular risk of the procedure is only mildly increased in light of his knowncoronary artery disease, atrial fibrillation, hypertension, diabetes. This mildly increased cardiova scular risk is felt to be acceptable in light of the overall clinical situation. ?? At the time of surgery, I would recommend the followin. Perioperative telemetry monitoring. 2. Discontinuation of Pradaxa 2 to 3 days prior to the procedure. Dr. Blackwell will resume postoperatively when safe from a bleeding standpoint. 3. 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 4. Perioperative maintenance of beta blockade and statin therapy. 5. Maintenance of a serum hemoglobin of 8.0 or greater. ?? From a long term standpoint, I have recommended to Mr. Zelaya: 1. CAD. He denies symptoms consistent with myocardial ischemia. We will continue current medical therapy. 2. Atrial Fibrillation. He is in sinus rhythm in the office today. His rate is well controlled withmetoprolol. He is anticoagulated with Pradaxa. 3. Hypertension. His blood pressure is well controlled in the office today. 4. Hyperlipidemia. He is currently treated with atorvastatin and reports no apparent side effects. We will continue to defer lipid management to Dr. Mercedes. An LDL cholesterol of less than 70 is recommended. ?? I have asked him to return to the cardiology clinic for routine followup in one year. I have encouraged him to contact me in the meantime should he have any questions or problems. Neuro/Psych (+) headaches GI/Hepatic/Renal (+) GERD, (well controlled), renal disease (kidney stones in past) Endo/Other (+) diabetes mellitus (BG 197 at 0730), (poorly controlled), (type 2), (sub Q insulin), (Using Oralhypoglycemic), obese Physical Evaluation Airway Mallampati: IV TM Distance: >3 FB Neck ROM: normal, small mouth opening Dental No notable dental history Pulmonary Breath sounds clear to auscultation Left side more diminished than right Cardiovascular Rhythm: regular Rate: normal Cardiovascular exam normal Anesthesia Plan ASA 3 Induction Anesthesia type: spinal Peripheral nerve block for post-op pain control Informed Consent Anesthetic plan and risks discussed with patient of whom consent was obtained. Use of blood products discussed with patient of whom consent was obtained. . documented in this encounter Plan of Treatment Upcoming Encounters Date Type Department Care Team (Late st Contact Info) Description 04/25/2024 11:00 AM SOCK LINING STITCHER Appointment [facility] [address] [place] [address] [place] [address] Ti Bonilla MD [address] [place] [phone] 05/23/2024 3:30 PM SOCK LINING STITCHER Office Visit [facility] [address] [place] [address] Jyoti Escobar MD [address] [place] [id number] documented as of this encounter Procedures Procedure Name Priority Date/Time Associated Diagnosis Comments AN SPINAL Routine 10/15/2019 12:18 PM CDT IN AN PERIPHERAL BLOCK SINGLE-SHOT Routine 10/15/2019 11:34 AM CDT documented in this encounter Results * AN SPINAL (10/15/2019 12:18 PM CDT) Narrative Matteo Lakhani CRNA - 10/15/2019 12:18 PM CDT Matteo Lakhani CRNA ? 10/15/2019 12:18 PM Spinal Block Date/Time: 10/15/2019 12:06 PM Patient location during procedure: OR Reason for block: primary anesthetic Staffing Anesthesiology Provider: Matteo Lakhani CRNA Performed by: PATRIZIA Preanesthetic Checklist Completed: patient identified, site marked, surgical consent, pre-op evaluation, timeout performed, IV checked, risks and benefits discussed and monitors and equipment checked Spinal Block Patient position: sitting Prep: povidone-iodine Patient monitoring: continuous pulse oximetry and blood pressure Approach: midline Ultrasound-guided Placement: ??No Location: L3-4 L3-4 Attempts: 1 L4-5 Attempts: 1, Dose: ??3 mL Needle Needle type: Pencil tip Needle gauge: 25 G Needle length: 5 cm Needle attempts: 1 Assessment Sensory level: T5 Events: positive free flow CSF Additional Notes SAB placed: Prep, drape. 3ml 1% lido local. Introducer placed. SAB needle placed. + CSF, - Blood. Injected meds as noted. Patient sitting for 3 min. Patient tolerated procedure well. us Matteo Lakhani CRNA IN ANESTHESIA Final Res ult * IN AN PERIPHERAL BLOCK SINGLE-SHOT (10/15/2019 11:34 AM CDT) Narrative Matteo Lakhani CRNA - 10/15/2019 11:34 AM CDT Matteo Lakhani CRNA ? 10/15/2019 11:39 AM Peripheral Nerve Block Peripheral Block Procedure Start Time: 10/15/2019 11:13 AM Procedure Stop Time: 10/15/2019 11:16 AM Patient Location During Procedure: pre-op Reason for Block: at surgeon's request, post-op pain management and primary anesthetic Preanesthetic Checklist Completed: patient identified, site marked, consent, pre-op evaluation, timeout performed, IV checked, risks and benefits discussed and monitors and equipment checked Procedure Information Patient Position: Supine Prep: Chloraprep Patient Monitoring: blood pressure, continuous pulse ox, ECG/EKG and heart rate Block Type: Femoral at Adductor Canal Laterality: right Injection Technique: single-shot Procedures: ultrasound guided Draping: sterile technique maintained Needle Needle type: Medline Echogenic. Needle Gauge: 22 G (24G) Needle Length: 3 1/8 in (4cm) Needle Localization: anatomical landmarks and ultrasound guidance Needle Insertion Depth: 2 cm Test Dose: negative Local Volume: 20 mL Needle Attempts: 1 Assessment Injection Assessment: incremental injection, local visualized surrounding nerve on ultrasound, negative aspiration for heme, no apparent complications, no paresthesia on injection and paresthesia absent Paresthesia Pain: none Heart rate change: no Additional Notes Risks explained: difficult placement, may be ineffective, bleeding, infection, nerve damage. Benefits explained to patient: may lower sedation and/or general anesthetic dose, possibly less pain after procedure.Timeout performed including patients name, date, and laterality. Patient participated in the timeout. Antiseptic prep. Sterile probe covered Right femoral artery located under US guidance, 20 mls of 1% ropivicaine with 1;200K epi in in 3-5 ml increments with aspiration prior. No heme no parasthesia us Matteo Lakhani CRNA IN ANESTHESIA Final Res ult documented in this encounter Visit Diagnoses Not on filedocumented in this encounter Administered Medications Inactive Administered Medications - up to 3 most recent administrations Medication Order MAR Action Action Date Dose Rate Site BUpivacaine 0.75% in dextrose 8.25% (intrathecal) (SENSORCAINE) 0.75-8.25 % injection Intrathecal, PRN, Starting on Tue10/15/19 at 1206, Until Tue10/15/19 at 1543, Anesthesia Intra-Op Given 10/15/2019 12:06 PM CDT 2 mLs ceFAZolin (ANCEF) 2 g in NS 100 mL IVPB 2 g, Intravenous, at 200 mL/hr, Once, 1 dose, On Tue10/15/19 at 1100 Given 10/15/2019 11:55 AM CDT 2 g dexamethasone (DECADRON) injection Intravenous, PRN, Starting on Tue10/15/19 at 1215, Until Tue10/15/19 at 1543, Anesthesia Intra-Op Given 10/15/2019 12:15 PM CDT 8 mg fentaNYL (SUBLIMAZE) injection Intravenous, PRN, Starting on Tue10/15/19 at 1112, Until Tue10/15/19 at 1543, Anesthesia Intra-Op Given 10/15/2019 11:12 AM CDT 100 mcg ketamine (KETALAR) injection PRN, Starting on Tue10/15/19 at 1215, Until Tue10/15/19 at 1543, Anesthesia Intra-Op Given 10/15/2019 12:55 PM CDT 50 mg Given 10/15/2019 12:15 PM CDT 50 mg metoclopramide (REGLAN) injection Intravenous, PRN, Starting on Tue10/15/19 at 1215, Until Tue10/15/19 at 1543, Anesthesia Intra-Op Given 10/15/2019 12:15 PM CDT 10 mg midazolam (VERSED) injection Intravenous, PRN, Starting on Tue10/15/19 at 1112, Until Tue10/15/19 at 1543, Anesthesia Intra-Op Given 10/15/2019 11:12 AM CDT 2 mg morphine (PF) (ASTRAMORPH) injection PRN, Starting on Tue10/15/19 at 1206, Until Tue10/15/19 at 1543, Anesthesia Intra-Op Given 10/15/2019 12:06 PM CDT 200 mcg phenylephrine (ESLENA-SYNEPHRINE) injection Intravenous, Continuous PRN, Starting on Tue10/15/19 at 1228, Until Tue10/15/19 at 1543, Anesthesia Intra-Op New Bag 10/15/2019 12:28 PM CDT 20 mcg/min 0.12 mL/hr propofol (DIPRIVAN) IV bolus Intravenous, Continuous PRN, Starting on Tue10/15/19 at 1207, Until Tue10/15/19 at 1543, Anesthesia Intra-Op Rate/Dose Change 10/15/2019 3:25 PM CDT 50 mcg/kg/min 34.3 mL/hr Rate/Dose Change 10/15/2019 2:40 PM CDT 100 mcg/kg/min 68. 6 mL/hr Rate/Dose Change 10/15/2019 1:48 PM CDT 85 mcg/kg/min 58.3 mL/hr ROpivacaine 1 % (NAROPIN) injection PRN, Starting on Tue10/15/19 at 1116, Until Tue10/15/19 at 1543, Anesthesia Intra-Op Given 10/15/2019 11:16 AM CDT 20 mLs sodium chloride 0.9% infusion Continuous PRN, Starting on Tue10/15/19 at 1239, Until Tue10/15/19 at 1543, Anesthesia Intra-Op New Bag 10/15/2019 12:39 PM CDT tranexamic acid (CYKLOKAPRON) injection 1,000 mg 1,000 mg, Intravenous, Once, 1 dose, On Tue10/15/19 at 1045, PHARMACIST TO ADJUST dose based on SCr (SCr less than 1.6 = 1,000 mg; SCr 1.6-3.3 = 750 mg; SCr 3.4-6.6 = 500 mg; SCr greater than 6.6 = 250 mg). Administer dose over 15 minutes prior to incision., Pre-Op Given 10/15/2019 12:14 PM CDT 1,000 mg documented in this encounter Care Teams Environmental Science Professor Relationship Specialty Start Date End Date Vernon Mercedes MD [address] [place] [address] [place] [address] PCP - General FAMILY PRACTICE 10/27/15 12/02/21 Evaristo Allan MD [address] [place] [phone] Sawyer Wire Roller CARDIOVASCULAR DISEASE 08/19/16 Raul Santana MD [address] [place] [address] CLINICAL CARDIAC ELECTROPHYSIOLOGY 06/16/17 Danny Blackwell MD [address] [place] [address] ORTHOPAEDIC SURGERY 05/01/19 documented as of this encounter
--- OUTSIDE RECORDS SUMMARY | 2024-04-23 04:28 | XMS_ITS | Encounter Summary ---
Author Organization [facility] Address [address] [place] [address]. 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 [address] [place] [address] Ti Bonilla MD [address] [place] [phone] 05/23/2024 3:30 PM AUTOMATIC DATA PROCESSING PLANNER [facility] [address] [place] [address] Jyoti Escobar MD [address] [place] [phone] documented as of this encounter Visit Diagnoses Not on filedocumented in this encounter Care Teams Pantograph Transferrer Relationship Specialty Start Date End Date Vernon Mercedes MD [address] [place] [address] PCP - General FAMILY PRACTICE 10/27/15 12/02/21 Evaristo Allan MD [address] [place] [address] [place] Senior Corporate Accountant CARDIOVASCULAR DISEASE 08/19/16 Raul Santana MD [address] [place] [address] CLINICAL CARDIAC ELECTROPHYSIOLOGY 06/16/17 Danny Blackwell MD [address] [place] [address] ORTHOPAEDIC SURGERY 05/01/19 documented as of this encounter
--- OUTSIDE RECORDS SUMMARY | 2024-04-23 04:28 | XMS_ITS | Encounter Summary ---
Author Organization [facility] Address [address] [place] [address]. 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 file [...] Author Status No 10/15/2019 4:47 PM CDT Acti ve * Do you have serious difficulty walking [...] st Contact Info) Description 04/25/2024 11:00 AM DOCK WORKER Appointment [facility] [address] [place] [address] Ti Bonilla MD [address] [place] [phone] 05/23/2024 3:30 PM DOCK WORKER Office Visit [facility] [address] [place] [address] Jyoti Escobar MD [address] [place] [phone] documented as of this encounter Visit Diagnoses Not on filedocumented in this encounter Care Teams Revenue Manager Relationship Specialty Start Date End Date Vernon Mercedes MD [address] [place] [phone] PCP - General FAMILY PRACTICE 10/27/15 12/02/21 [place] [address] [place] [employer] CARDIOVASCULAR DISEASE 08/19/16 Raul Santana MD [address] [facility] [place] [address] CLINICAL CARDIAC ELECTROPHYSIOLOGY 06/16/17 Danny Blackwell MD [address] [place], [place] [phone] ORTHOPAEDIC SURGERY 05/01/19 documented as of this encounter
--- OUTSIDE RECORDS SUMMARY | 2024-04-23 04:28 | XMS_ITS | Encounter Summary ---
Author Organization [facility] Address [address] [place] [address]. [place], [place] [address] [place] [address] Care Team Providers Care Emergency Veterinarian Name Role Phone Vernon Mercedes MD Primary Care Provider [phone] Evaristo Allan MD Unavailable Unavailabl Raul Duran MD Unavailable Unavailabl Danny Lopes MD Unavailable [phone] Encounter Details Date Type Department Care Team (Late st Contact Info) Description 09/21/2019 Orders Only [facility] [address], [place] [phone] Kady Vann RN Social History Tobacco Use [...] as of this encounter Progress Notes * Kady Vann RN - 09/21/2019 2:49 PM CDTAddended by: KADY VANN on: 09/21/2019 02:49 PM Modules accepted: Orders documented in this encounter Plan of Treatment Upcoming Encounters Date Type Department Care Team (Late st Contact Info) Description 04/25/2024 11:00 AM RECORDS ANALYST Appointment [facility] [address] [place] [address] [place] [address] Ti Bonilla MD [address] [place] [phone] 05/23/2024 3:30 PM RECORDS ANALYST Office Visit [facility] [address] [place] [phone] Jyoti Escobar MD [address] [place] [phone] documented as of this encounter Results * CORONAVIRUS (COVID 19) [facility] (10/12/2019 6:42 AM CDT) CORONAVIRUS SARS COV 2 PCR (RESP) NOT DETECTED NOT DETECTED 10/13/2019 9:43 PM CDT [facility] Comment: A Not Detected (negative) test result for this test means that SARS- CoV-2 RNA was not present in the specimen above the limit of detection. A negative result does not rule out the possibility of COVID-19 and should not be used as the sole basis for treatment or patient management decisions. ??If COVID-19 is still suspected, based on exposure history together with other clinical findings, re-testing should be considered in consultation with public health authorities. Laboratory test results should always be considered in the context of clinical observations and epidemiological data in making a final diagnosis and patient management decisions. Please review the Fact Sheets and FDA authorized labeling available for health care providers and patients using the following websites: https://www.Ipropertyz.Leyou software/home/Covid-19/HCP/NAAT/fact-sheet2 https://www.Iproperty[employer].Ley[employer] software/home/Covid-19/Patients/NAAT/ fact-sheet2 This test has been authorized by the FDA under an Emergency Use Authorization (EUA) for use by authorized laboratories. Due to the current public health emergency, [facility] is receiving a high volume of samples from a wide variety of swabs and media for COVID-19 testing. In order to serve patients during this public health crisis, samples from appropriate clinical sources are being tested. Negative test results derived from specimens received in non-commercially manufactured viral collection and transport media, or in media and sample collection kits not yet authorized by FDA for COVID-19 testing should be cautiously evaluated and the patient potentially subjected to extra precautions such as additional clinical monitoring, including collection of an additional specimen. Methodology: ??Nucleic Acid Amplification Test (NAAT) includes PCR or TMA Additional information about COVID-19 can be found at the [facility] website: www.[employer]Cart/Covid19. Test performed at [facility] [address] ??[id number] Director: VIRGILIO MONSON DO,MPH NASOPHARYNGEAL SWAB / Unknown 10/12/2019 6:42 AM CDT Danny Blackwell MD MICROBIOLOGY - GENERAL ORDERAB LES Final Result [facility] [address] [address], * (ABNORMAL) HEMOGLOBIN, GLYCOSYLATED (10/08/2019 9:34 AM CDT) HGB A1C 8.7(H) <5.7 % 10/08/2019 3:36 PM CDT [facility] Comment: 5.7 TO 6.4% INCREASED RISK OF DIABETES > OR = 6.5% CONSISTENT WITH DIABETES PER ADA GUIDELINES ESTIMATED AVG GLUCOSE 203(H) 70 - 140 MG/DL 10/08/2019 3:36 PM CDT [facility] 10/08/2019 9:34 AM CDT Danny Blackwell MD LABORATORY Final Result [facility] [place] [address], documented in this encounter Visit Diagnoses Diagnosis Pre-operative laboratory examination- Primary Pre-procedural laboratory examination Diabetes ([facility]/HCC HHS/HCC) documented in this encounter Additional Health Concerns Infection Onset Date Last Indicated Resolved Time MRSA Comment:Negative MRSA 05/201903/11/2017 03/11/2017 10/03/2019 10:08 AM CDT documented as of this encounter Care Teams Emergency Veterinarian Relationship Specialty Start Date End Date Vernon Mercedes MD [address] [place] [address] PCP - General FAMILY PRACTICE 10/27/15 12/02/21 Evaristo Allan MD [address] [place] [address] [place] [employer] Intern CARDIOVASCULAR DISEASE 08/19/16 Raul Santana MD [address] [place] [address] CLINICAL CARDIAC ELECTROPHYSIOLOGY 06/16/17 Danny Blackwell MD [address] [place] [address] ORTHOPAEDIC SURGERY 05/01/19 documented as of this encounter
--- OUTSIDE RECORDS SUMMARY | 2024-04-23 04:28 | XMS_ITS | Encounter Summary ---
Author Organization [facility] Address [address] [place] [address]. [place], [place] [address] [place] [address] Care Team Providers Care Acting Instructor Name Role Phone Vernon Mercedes MD Primary Care Provider [phone] Evaristo Allan MD Unavailable UnavailRaul Suresh MD Unavailable Unavailabl Danny Lopes MD Unavailable [phone] Encounter Details Date Type Department Care Team (Latest Contact Info) Description 09/21/2019 12:32 PM CDT - 09/21/2019 11:59 PM CDT Hospital Encounter [facility] [address] [facility] [place] [address] Danny Blackwell MD [address] [place] [address] Discharge Disposition: Home or Self [...] 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 No / Unsure 09/21/2019 10:49 AM CDT documented as of this encounter Medications at Time of Discharge metFORMIN 850 MG tablet Take 1 tablet (850 mg total) by mouth 3 (three) times daily. 10/25/2018 NOVOLOG FLEXPEN 100 UNIT/ML injection (PEN) Inject 50 Units as directed 3 (three) times daily before meals. 09/13/2019 amitriptyline 50 MG tablet Take 50 mg by mouth nightly at bedtime. 1 aspirin EC 81 MG tablet Take 1 tablet (81 mg total) by mouth daily. 100 tablet 02/23/2019 0 aspirin EC 81 MG tablet Take 81 mg by mouth daily. 100 tablet 10/18/2019 4 atorvastatin 40 MG tablet Take 0.5 tablets (20 mg total) by mouth nightly at bedtime. 4 diazePAM 5 MG tablet Take 1 tablet (5 mg total) by mouth every 6 (six) hours as needed (spasms). 10 tablet 10/18/2019 0 famotidine 20 MG tablet Take 2 tablets by mouth 2 (two) times a day. 08/29/2019 1 furosemide 20 MG tablet Take 20 mg by mouth daily. 01/28/2017 2 gabapentin 300 MG capsule Take 300 mg by mouth 3 (three) times daily. 02/06/2018 4 HUMALOG 100 UNIT/ML injection (VIAL) Inject 32 Units into the skin 3 (three) times daily before meals. 12/29/2017 0 HYDROcodone-acetamin ophen (NORCO) 5-325 MG tabletIndications:Ch ronic Pain Take 1 tablet by mouth every 6 (six) hours as needed for Pain. Indications: Chronic Pain 30 tablet 09/21/2019 0 isosorbide mononitrate ER 30 MG 24 hr tablet Take 1 tablet (30 mg total) by mouth daily. 30 tablet 7 07/10/2019 0 LEVEMIR 100 UNIT/ML injection Inject 44 Units into the skin nightly at bedtime. 12/29/2017 4 METOPROLOL SUCCINATE ER 50 MG 24 hr tablet TAKE ONE TABLET BY MOUTH 2 TIMES A DAY. 180 tablet 3 07/31/2018 0 nitroglycerin 0.[address] 1 tablet (0.4 mg total) under the tongue every 5 (five) minutes as needed for Chest Pain. 25 tablet 1 01/04/2018 4 NOVOFINE 32G X 6 MM Misc 10/25/2018 0 ondansetron (ZOFRAN ODT) 4 MG disintegrating tablet Take 1 tablet (4 mg total) by mouth every 8 (eight) hours as needed for Nausea. 20 tablet 10/18/2019 0 oxyCODONE ER 10 MG 12 hr abuse-deterrent tabletIndications:Ch ronic Pain Take 1 tablet (10 mg total) by mouth every 12 (twelve) hours for 5 days. Indications: Chronic Pain 10 tablet 10/18/2019 0 oxyCODONE-acetaminop hen 5-325 MG tabletIndications:Ch ronic [...] (0.4 mg total) by mouth daily. 4 traMADol 50 MG tablet Take 50 mg by mouth every 6 (six) hours as needed for Pain. 0 TRUE METRIX BLOOD GLUCOSE TEST test strip 10/25/2018 0 documented as of this encounter Plan of Treatment Upcoming Encounters Date Type Department Care Team (Late st Contact Info) Description 04/25/2024 11:00 AM PLASTIC TOP ASSEMBLER Appointment [facility] [address] [place] [address] Ti Bonilla MD [address] [place] [phone] 05/23/2024 3:30 PM PLASTIC TOP ASSEMBLER Office Visit [facility] [address] [place] [phone] Jyoti Escobar MD [address] [place] [address] documented as of this encounter Procedures Procedure Name Priority Date/Time Associated Diagnosis Comments SED RATE, ERYTHROCYTE (ESR) Routine 09/21/2019 12:42 PM CDT Prosthetic joint implant failure, subsequent encounter C-REACTIVE PROTEIN Routine 09/21/2019 12 :42 PM CDT Prosthetic joint implant failure, subsequent encounter CBC W/DIFF AUTOMATED Routine 09/21/2019 12:42 PM CDT Prosthetic joint implant failure, subsequent encounter documented in this encounter Results * (ABNORMAL) SED RATE, ERYTHROCYTE (ESR) (09/21/2019 12:42 PM CDT) ESR 44(H) 0 - 20 MM/HR 09/21/2019 1:28 PM CDT [facility] Comment:NOTE: ANEMIA, IF PRE SENT, MAY CAUSE AN ELEVATED SEDIMENTATION RATE. 09/21/2019 12:4 2 PM CDT us Danny Blackwell MD LABORATORY Final Result Performing Organization Address [facility] Co de Phone Number [facility] [address] [place] [address], * C-REACTIVE PROTEIN (09/21/2019 12:42 PM CDT) C-REACTIVE PROTEIN 0.14 <0.30 mg/dL 09/21/2019 1:00 PM CDT [facility] 09/21/2019 12:4 2 PM CDT us Danny Blackwell MD LABORATORY Final Result Performing Organization Address [facility] Co de Phone Number [facility] [address] [place] [address], * (ABNORMAL) CBC W/DIFF AUTOMATED (09/21/2019 12:42 PM CDT) WBC 7.5 4.5 - 10.8 x10'3/uL 09/21/2019 12:48 PM CDT [facility] RBC 4.81 4.50 - 6.10 x10'6/uL 09/21/2019 12:48 PM CDT [facility] HGB 13.2 13.0 - 18.0 G/DL 09/21/2019 12:48 PM CDT [facility] HCT 41.6 37.0 - 52.0 % 09/21/2019 12:48 PM CDT [facility] MCV 86.5 78.0 - 100.0 FL 09/21/2019 12:48 PM CDT [facility] MCH 27.4 27.0 - 31.0 PG 09/21/2019 12:48 PM CDT [facility] MCHC 31.7(L) 33.0 - 36.0 G/DL 09/21/2019 12:48 PM CDT [facility] RDW 13.8 11.5 - 14.5 % 09/21/2019 12:48 PM CDT [facility] PLT 288 150 - 350 x10'3/uL 09/21/2019 12:48 PM CDT [facility] MPV 11.3(H) 7.4 - 10.4 FL 09/21/2019 12:48 PM CDT [facility] DIFFERENTIAL COMMENT NORMAL REFERENCE RANGE NOT ESTABLISHED FOR THE PROPORTIONAL LEUKOCYTE DIFFERENTIAL. 09/21/2019 12:48 PM CDT [facility] SEG NEUTROPHILS 59.9 % 0 12:48 PM CDT [facility] LYMPHOCYTES 25.7 % 09/21/2019 12:48 PM CDT [facility] MONOCYTES 10.9 % 09/21/2019 12:48 PM CDT [facility] EOSINOPHILS 1.9 % 09/21/2019 12:48 PM CDT [facility] BASOPHILS 1.3 % 09/21/2019 12:48 PM CDT [facility] IMMATURE GRANS % 0.3 % 09/21/19 20 12:48 PM CDT [facility] NRBC 0.0 % 09/21/2019 12:48 PM CDT [facility] ABS. NEUTROPHILS 4.50 1.60 - 8.30 x10'3/uL 09/21/2019 12:48 PM CDT [facility] ABS. LYMPHOCYTES 1.93 0.80 - 4.70 x10'3/uL 09/21/2019 12:48 PM CDT [facility] ABS. MONOCYTES 0.82 0.00 - 1.50 x10'3/uL 09/21/2019 12:48 PM CDT [facility] ABS. EOSINOPHILS 0.14 0.00 - 0.40 x10'3/uL 09/21/2019 12:48 PM CDT [facility] ABS. BASOPHILS 0.10 0.00 - 0.20 x10'3/uL 09/21/2019 12:48 PM CDT [facility] ABS. IMMATURE GRANULOCYTES 0.02 0.00 - 0.03 x10'3/uL 09/21/2019 12:48 PM CDT [facility] ABS. NUCLEATED RBC'S 0.00 0.00 x10'3/uL 09/21/2019 12:48 PM CDT [facility] 09/21/2019 12:4 2 PM CDT Danny Blackwell MD LABORATORY Final Result Performing Organization Address City/State/[facility] Co de Phone Number [facility] [address] [place], [place] [address] [phone] documented in this encounter Visit Diagnoses Diagnosis Prosthetic joint implant failure, subsequent encounter documented in this encounter Additional Health Concerns Infection Onset Date Last Indicated Resolved Time MRSA Comment:Negative MRSA 05/201903/11/2017 03/11/2017 10/03/2019 10:08 AM CDT documented as of this encounter Care Teams Acting Instructor Relationship Specialty Start Date End Date Vernon Mercedes MD [address] [place] [phone] PCP - General FAMILY PRACTICE 10/27/15 12/02/21 Evaristo Allan MD [address] [place] [address] [place] Senior Tax Specialist CARDIOVASCULAR DISEASE 08/19/16 Raul Santana MD [address] [place] [address] CLINICAL CARDIAC ELECTROPHYSIOLOGY 06/16/17 Danny Blackwell MD [address] [place], [place] [phone] ORTHOPAEDIC SURGERY 05/01/19 documented as of this encounter
--- OUTSIDE RECORDS SUMMARY | 2024-04-23 04:28 | XMS_ITS | Encounter Summary ---
Author Organization [facility] Address [address] [place] [address]. [place], [place] [id number] [place] [id number] Care Team Providers Care Financial Coach Name Role Phone Ton Mercedes MD Primary Care Provider [phone] Evaristo Allan MD Unavailable Unavailpavel e Raul Santana MD Unavailable Unavailabl e Warren Steiner MD Unavailable [phone] Reason for Visit * Auth/Cert Specialty Diagnoses / Procedures Referred By Contac t Referred To Contact Diagnoses T84.018A Procedures Revision RIGHT Total Knee ArthroplastyNate notifiedInpatient Referral ID Status Reason Start Date Expiration Date Visits Re quested Visits Authorized [id number] 1 1 Encounter Details Date Type Department Care Team (Late st Contact Info) Description 10/15/2019 12:08 PM CDT - 10/15/2019 2:15 PM CDT Surgery [place] [address] [place] [address] Warren Steiner MD [address] [place] [address] Revision RIGHT Total Knee Arthroplasty Surgery Details Date/Time Status Location OR Service Patient Class Case Class Case Type Trauma Case? 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 No / Unsure 10/15/2019 10:18 AM CDT documented as of this encounter Last Filed Vital Signs Vital Sign Reading Time Taken Comments Blood Pressure 143/76 10/15/2019 11:15 AM CDT Pulse 99 10/15/2019 11:15 AM CDT Temperature 35.6 ??C (96.1 ??F) 10/15/2019 10:48 AM C DT Respiratory Rate 18 10/15/2019 11:15 AM CDT Oxygen Saturation 100% 10/15/2019 11:15 AM CDT Inhaled Oxygen Concentration - - Weight 114.3 kg (252 lb) 10/08/2019 1:50 PM CDT Height 177.8 cm (5' 10 ) 10/08/2019 1:50 PM CDT Body Mass Index 36.16 10/16/2019 7:30 AM CDT documented in this encounter Functional [...] documented in this encounter Discharge Summaries * Dari Piña, SLOT MACHINE FLOOR PERSON-BC - 10/18/2019 7:53 AM CDT Discharge Summary Patient: Evaristo Zelaya is a 59-year-old male : 1960 Medical Record: [id number] Admit Date: 10/15/2019 10:18 AM Admission Diagnosis: T84.018A Prosthetic knee implant failure ([facility]) PCP: TON MERCEDES MD Admitting Physician: Warren Steiner MD Discharge date: 10/18/2019 Discharge Diagnosis: Patient Active Problem List Diagnosis Date Noted ??? Status post revision of total replacement of right knee 10/16/2019 ??? 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 S/P coronary artery stent placement 05/01/2019 ??? Failure of total knee replacement, initial encounter ([facility]) 04/27/2019 ??? 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 Cardiovascular stress test abnormal 03/06/2018 ??? Coronary artery disease 02/13/2018 ??? Diabetes ([facility]) 02/10/2018 ??? Mechanical complication of internal orthopedic device, implant or graft, initial encounter ([facility]) 11/01/2016 ??? Hyperlipidemia 08/14/2016 ??? Pes anserine bursitis 03/09/2016 ??? 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 Obstructive sleep apnea 10/29/2015 ??? Essential hypertension 10/24/2015 has had elevated B/P readings ??? Paroxysmal atrial fibrillation ([facility]) 10/24/2015 ??? Arthritis of knee 11/25/2014 ??? Patella-femoral syndrome 09/23/2014 ??? Derangement of medial meniscus, left 07/31/2014 ??? Knee pain 07/15/2014 ??? Encounter for follow-up examination after completed treatment for conditions other than malignant neoplasm 04/30/2014 ??? Heartburn 03/26/2014 ??? Recurrent ventral incisional hernia 03/26/2014 ??? Abdominal pain 03/26/2014 Surgery date: 10/15/2019 Procedure: Revision RIGHT Total Knee Arthroplasty: Discharged Condition: stable Hospital Course: Evaristo Zelaya is a 59-year-old male who underwent an elective Revision RIGHT Total Knee Arthroplasty: . He was admitted postoperatively for routine infection and DVT prophylaxis and mobilized with physical therapy. Postoperatively he made good progress with mobilization and struggled with pain control but after pain medication modification he had better pain control. He was found to be safewith independent activity to be discharged home. His final examination demonstrates that his incision is in excellent condition without redness or warmth. He is demonstrating tenderness over the mid femur where the tourniquet was located which has decreased since yesterday. He is neurovascularly intact and showing increasing quad firing. Prior to his discharge imaging of his RIGHT knee was preformed and demonstrated post operative changes with hardware in stable positioning and no acute bony injury. Discharge instructions were provided a long with a follow-up appointment. He will continue hisregular home medications and a prescription for Percocet and a short course of MS Contin was provided for pain relief. He will continue to take an Aspirin twice a day for DVT prophylaxis and scheduled for Oupatient physical therapy. Consults: none Disposition: discharged to home Discharged Condition: Stable Discharge Medications: Medication List START taking these medications oxyCODONE ER 10 MG 12 hr abuse-deterrent tablet Commonly known as: OxyCONTIN Take 1 tablet (10 mg total) by mouth every 12 (twelve) hours for 5 days. Indications: Chronic Pain oxyCODONE-acetaminophen 5-325 MG tablet Commonly known as: PERCOCET Take 1-2 tablets by mouth every 4 (four) hours as needed for Pain. Indications: Chronic Pain CHANGE how you take these medications aspirin EC 81 MG tablet Commonly known as: ECOTRIN What changed: ?? when to take this ?? additional instructions CONTINUE taking these medications amitriptyline 50 MG tablet Commonly known as: ELAVIL atorvastatin 40 MG tablet Commonly known as: LIPITOR famotidine 20 MG tablet Commonly known as: PEPCID furosemide 20 MG tablet Commonly known as: LASIX gabapentin 300 MG capsule Commonly known as: NEURONTIN isosorbide mononitrate ER 30 MG 24 hr tablet Commonly known as: IMDUR Take 1 tablet (30 mg total) by mouth daily. Levemir 100 UNIT/ML injection Generic drug: insulin detemir metFORMIN 850 MG tablet Commonly known as: GLUCOPHAGE metoprolol succinate ER 50 MG 24 hr tablet Commonly known as: TOPROL-XL nitroglycerin 0.4 MG SL tablet Commonly known as: NITROSTAT Place 1 tablet (0.4 mg total) under the tongue every 5 (five) minutes as needed for Chest Pain. NovoLOG FlexPen 100 UNIT/ML injection (PEN) Generic drug: insulin aspart Pradaxa 150 MG Caps Generic drug: dabigatran TAKE ONE CAPSULE BY MOUTH TWICE A DAY spironolactone 25 MG tablet Commonly known as: ALDACTONE tamsulosin 0.4 MG Caps Commonly known as: FLOMAX STOP taking these medications HYDROcodone-acetaminophen 5-325 MG tablet Commonly known as: [place] traMADol 50 MG tablet Commonly known as: ULTRAM Where to Get Your Medications These medications were sent to [address] [id number] ?? oxyCODONE ER 10 MG 12 hr abuse-deterrent tablet ?? oxyCODONE-acetaminophen 5-325 MG tablet Signed ISAURO DEE Cosigned by Warren Steiner MD at 10/19/2019 1:06 PM CDT documented in this encounter Discharge Instructions * Attachments The following attachments cannot be sent through Care Everywhere. * Total Knee Replacement Discharge Instructions (Serbian) documented in this encounter Medications at Time [...] this encounter Progress Notes * Long Dotson, PROGRAMMER BUSINESS - 10/18/2019 12:18 PM CDT 10/18/19 0953 Therapy Visit Ordering Provider Dr. Steiner Subjective Pt sitting up in chair with LE's elevated upon entry. He reports he is still struggling with pain, and will need increased time to lower his LE's. Pt hopes to go home today and agreeable to ambulate and try stairs. Verified Two Patient Identifiers Yes Patient consents to therapy Yes Acute Inpatient PT Time Calculation PT Start Time 0953 PT Stop Time 1044 PT Time Calculation (min) 51 min Precautions Precautions Yes/No Yes Weight Bearing Status As tolerated;RLE General Precautions Fall Risk Pain Pain Yes Pain Score 5 Location R Thigh Activity Tolerance Endurance Tolerates 45 min activity with rests Activity Tolerance Comments Slight dizziness and nausea noted when up on his feet. Cognition Overall Cognitive Status WFL TRANSFERS Sit to Stand Mod assist;Min assist (Mod A from low chair, Min A from elevated chair) Gait Gait Assistance Contact guard assist Assistive Device 2 Wheeled walker Ambulation Distance (Feet) 30ft x 1 Pattern R Decreased stance time Weight Bearing Status Weight bearing as tolerated Stairs Stair Management Assistance Min assist;Mod assist Stair Management Technique Two rails Number of Stairs 2 Balance Sitting - Static Independent Sitting - Dynamic Independent Standing - Static CGA;Support of both upper extremities Standing - Dynamic CGA;Support of both upper extremities Exercises Ankle Pumps x20 Quad Sets x 10R Short Arc Quad R x 10 assisted Heelslides AAROM x 10 (limited mobility) Hip Abduction R x 10 PT Assessment PT Assessment Pt is most limited by pain. He had his assisting him with kicking his R LE out upon standing and sitting, and ambulates with a very antalgic pattern. He was given multiple attemptsto stand independently, but required Mod A from his chair initially, but pt does have a lift chair at home. Pt required about 10 minutes to get himself to ascend/descend 2 steps requiring some assistance to stabilize him when coming down due to having to descend so quickly because of pain. Attempted to have pt utilize the R HR while descending because that is what he has at home, but only able touse the L because he had to descend sideways for extra UE support. Recommendation PT Recommendation Outpatient PT;Home with assistance PT Equipment Recommended 2 Wheeled walker Plan PT Treatments/Interventions Gait Training;Therapeutic Exercises;Therapeutic Activities Progress Progressing toward goals PT Frequency BID End of Session Safety End of Session Safety Call light within reach;Family/friend present with patient;Nursing aware of session * MICHAELA Pierce - 10/18/2019 10:19 AM CDT 10/18/19 1000 Therapy Visit Reason for admission R TKA Revision Ordering Provider Dr. Steiner Patient consents to therapy Yes Acute Inpatient OT Time Calculation OT Start Time 0715 OT Stop Time 0745 OT Time Calculation (min) 30 min Subjective Subjective Pt supine and agreeable to treatment. Pain Pain Yes Pain Score 1 Location Right Thigh area Objective Objective Pt seen during skilled OT with focus on transfers,toileting,UB dressing,bed mobility, andsponge bathing. Activity Tolerance Endurance Tolerates 20 - 30 min activity with rests ADL Bathing Assistance Stand by UE Dressing Assistance Independent LE Dressing Assistance Minimal Bed Mobility Supine to Sit Mod assist to left Functional Transfers Sit to Stand SBA/supervision Bed to Chair SBA/supervision Recommendation OT Recommendation Outpatient PT OT Equipment Recommended 2 Wheeled walker Plan OT Treatment/Intervention Self-care training;Therapeutic activities;Functional activity Progress Progressing toward goals End of Session Safety End of Session Safety Call light within reach * Arminda Fallon - 10/18/2019 9:41 AM CDT Patient is discharging home today. SW gave him a walker for discharge. No other discharge needs. Will do outpatient therapy at [facility]. * Kimberly Orozco RN - 10/18/2019 8:54 AM CDT Dc today * Meme Sanders RN - 10/17/2019 9:20 PM CDT Reviewed with pt pain meds are prn and she needs to let us know when she needs them * Keiry Naranjo, PROGRAMMER BUSINESS - 10/17/2019 4:35 PM CDT 10/17/19 1416 Therapy Visit Ordering Provider Dr. Steiner Subjective Patient is up in bedside chair upon arrival. Patient states he has been trying to rest but hasn't had a lot of rest. Patient states his thigh and knee cap are sore. Reason for admission R TKA Revision Verified Two Patient Identifiers Yes Patient consents to therapy Yes Acute Inpatient PT Time Calculation PT Start Time 1416 PT Stop Time 1448 PT Time Calculation (min) 32 min Precautions Precautions Yes/No Yes Weight Bearing Status As tolerated;RLE Pain Pain Yes Pain Score 9 Location R knee cap/thigh Activity Tolerance Endurance Tolerates 20 - 30 min activity with rests Cognition Overall Cognitive Status WFL Bed Mobility Sit to Supine Mod assist to right TRANSFERS Sit to Stand Min assist;Assist of 2 Other (Comment) toileting: standing with SBA x1 Gait Gait Assistance Contact guard assist Assistive Device 2 Wheeled walker Ambulation Distance (Feet) 15'x1 and 10'x1 on level surface Pattern R Decreased stance time Other (Comment) VC for heel strike/foot flat Balance Sitting - Static Independent Sitting - Dynamic Independent Standing - Static SBA;Support of both upper extremities Standing - Dynamic CGA;Support of both upper extremities Exercises Ankle Pumps x20 Quad Sets x10 R Heelslides AAROM x5 Glut Sets x10 PT Assessment PT Assessment Patient cont. to struggle significantly with pain management resulting in poor tolerance to activity. Patient is very sensitive to mild pressure or touch to the R LE. Knee flexion ROM is minimal due to pain and resistance from patient when stretching. VC for heel strike and foot flat during ambulation. Patient is unable to ambulate much distance this afternoon due to pain and fatigue. Encouraged patient to try and eat something as he notes poor appetite. Recommendation PT Recommendation Home with assistance;Outpatient PT PT Equipment Recommended 2 Wheeled walker Plan PT Treatments/Interventions Gait Training;Therapeutic Exercises;Therapeutic Activities Progress Progressing toward goals PT Frequency BID End of Session Safety End of Session Safety Call light within reach;Nursing aware of session * Keiry Naranjo PTA - 10/17/2019 4:34 PM CDT Continue pursuits of LE strengthening as well as transfer and gait ability for safe return home. Attempt stairs when tolerable. * Ashley Delgado RN - 10/17/2019 2:24 PM CDT Patient has not reported pain level to be any lower than a 5/10 despite changing type of pain meds and adding in an extended release option. Will continue to monitor patient's pain level. * MICHAELA Pierce - 10/17/2019 11:20 AM CDT 10/17/19 07 Therapy Visit Reason for admission R TKA Revision Ordering Provider Dr. Steiner Verified Two Patient Identifiers Yes Patient consents to therapy Yes Acute Inpatient OT Time Calculation OT Start Time 0731 OT Stop Time 0754 OT Time Calculation (min) 23 min Precautions Precautions Yes/No Yes Weight Bearing Status As tolerated;RLE Subjective Subjective PT in room upon arrival attempting to get patient to edge of bed. Pain Pain Yes Pain Score 9 Location R Knee Cap Objective Objective Pt seen during skilled OT with focus on transfers,toileting,UB dressing,bed mobility, andsponge bathing. ADL Bathing Assistance Minimal UE Dressing Assistance Stand by Bed Mobility Supine to Sit Mod assist to left;Max assist to left Functional Transfers Sit to Stand Min assist;Assist of 2 Bed to Chair Contact guard assist Recommendation OT Recommendation Outpatient PT OT Equipment Recommended 2 Wheeled walker Plan OT Treatment/Intervention Self-care training;Therapeutic activities;Functional activity Progress Progressing toward goals End of Session Safety End of Session Safety Call light within reach * Keiry Naranjo PTA - 10/17/2019 8:21 AM CDT 10/17/19 0715 Therapy Visit Ordering Provider Dr. Steiner Subjective Patient is supine in the bed upon arrival. CPM is on. Patient reports he is doing alright this morning however his knee cap really hurts. Reason for admission R TKA Revision Verified Two Patient Identifiers Yes Patient consents to therapy Yes Acute Inpatient PT Time Calculation PT Start Time 07 PT Stop Time 0745 PT Time Calculation (min) 30 min Precautions Precautions Yes/No Yes Weight Bearing Status As tolerated;RLE General Precautions Fall Risk Pain Pain Yes Pain Score 9 Location R knee cap Activity Tolerance Endurance Tolerates 10 - 20 min activity with rests Activity Tolerance Comments HR increases with activity: 121 bpm Cognition Overall Cognitive Status WFL Bed Mobility Supine to Sit Mod assist to left;Max assist to left TRANSFERS Sit to Stand Min assist;Assist of 2 Gait Gait Assistance Contact guard assist Assistive Device 2 Wheeled walker Ambulation Distance (Feet) 10'x1 on level surface Pattern R Decreased stance time Weight Bearing Status Weight bearing as tolerated Balance Sitting - Static Independent Sitting - Dynamic Independent Standing - Static SBA;Support of both upper extremities Standing - Dynamic CGA;Support of both upper extremities PT Assessment PT Assessment Patient continues to struggle with bed mobility and transfers noting pain in the anterior knee. Patient is able to flex the knee just enough while sitting but does not actively work to bend the knee when needed. Encouraged patient to work on bending and placing the knee straight as not to stiffen the knee. No LOB or safety concerns once up and ambulating with patient demonstrating decr stance on R and moderate weightshifting through vanita. UE's. Recommendation PT Recommendation Home with assistance;Outpatient PT PT Equipment Recommended 2 Wheeled walker Plan PT Treatments/Interventions Gait Training;Therapeutic Exercises;Therapeutic Activities Progress Progressing toward goals PT Frequency BID End of Session Safety End of Session Safety Call light within reach (OT present) * Keiry Naranjo PTA - 10/17/2019 8:21 AM CDT Continue focus on strength improvement as well as transfers and gait for functional mobility improvement and safe return home. * Dari Sallie Piña, SLOT MACHINE FLOOR PERSON-BC - 10/17/2019 7:39 AM CDT Daily Progress Note Patient: Evaristo Zelaya is a 59-year-old male : 1960 Surgery date: 10/15/2019 Procedure: Revision RIGHT Total Knee Arthroplasty: SUBJECTIVE He is having increased pain this morning and struggling getting out of bed. OBJECTIVE Vital signs in the last 24 hours: Temp: [97.4 ??F (36.3 ??C)-99.6 ??F (37.6 ??C)] 97.6 ??F (36.4 ??C) Pulse: [90-131] 119 Resp: [18-20] 20 BP: (106-145)/(69-79) 145/79 Intake/Output last 3 shifts: I/O last 3 completed shifts: In: 1720 [P.O.:1720] Out: - Intake/Output this shift: No intake/output data recorded. Examination: Constitutional: Alert and in no acute distress. Neurological: The patient was oriented to person, place, and time. EXAM of RIGHT knee today reveals incision well approximated with melanie in place and no redness orwarmth, mild swelling, diffuse tenderness with palpation, palpable pedal pulse. Labs and Cultures: Recent Results (from the past 24 hour(s)) POCT glucose Collection Time: 10/16/19 11:03 AM Result Value Ref Range GLUCOSE POC 148 (H) 70 - 99 MG/DL POCT glucose Collection Time: 10/16/19 3:57 PM Result Value Ref Range GLUCOSE POC 75 70 - 99 MG/DL POCT glucose Collection Time: 10/16/19 8:06 PM Result Value Ref Range GLUCOSE POC 205 (H) 70 - 99 MG/DL POCT glucose Collection Time: 10/17/19 6:04 AM Result Value Ref Range GLUCOSE POC 178 (H) 70 - 99 MG/DL Imaging: ASSESSMENT Patient Active Problem List Diagnosis ??? Essential hypertension ??? Paroxysmal atrial fibrillation (CMS/HCC) ??? snf current use of anticoagulant therapy ??? Obstructive sleep apnea ??? Hyperlipidemia ??? Diabetes (CMS/HCC) ??? Coronary artery disease ??? 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 Cardiovascular stress test abnormal ??? Arthritis of knee ??? Derangement of medial meniscus, left ??? Encounter for follow-up examination after completed treatment for conditions other than malignant neoplasm ??? Heartburn ??? Knee pain ??? Mechanical complication of internal orthopedic device, implant or graft, initial encounter ([facility]) ??? Patella-femoral syndrome ??? Pes anserine bursitis ??? Recurrent ventral incisional hernia ??? Abdominal pain ??? Failure of total knee replacement, initial encounter ([facility]) ??? S/P coronary artery stent placement ??? Prosthetic knee implant failure ([facility]) ??? Status post revision of total replacement of right knee PLAN: He is struggling with pain control and had a noticed increased blood press along with tachycardia secondary to pain. I have ordered xray for evaluation and assessment of prosthetic due to the increased pain. Still awaiting culture results but as of now no growth has been seen. Adjustment to medication will be made and see how he does with mobility today but anticipate possibly holding discharge until tomorrow to get pain under better control. Signed ISAURO DEE 10/17/2019 Cosigned by Warren Steiner MD at 10/17/2019 8:11 AM CDT * Mau Jackson - 10/16/2019 9:46 PM CDT Patient has not been able to have an acceptable level of pain post op. He is requiring pain medications every 4 hours. Ambulation has made the pain worse for the patient. 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 Will continue to monitor throughout shift. * Long Dotson PTA - 10/16/2019 6:10 PM CDT 10/16/19 1525 Therapy Visit Ordering Provider Dr. Steiner Subjective Pt lying supine in bed upon entry and reports pain is still an issue, but they switched his pain medication not long ago. Pt agreeable to get up and walk and do his exercises. Reason for admission R TKA Revision Verified Two Patient Identifiers Yes Patient consents to therapy Yes Acute Inpatient PT Time Calculation PT Start Time 1525 PT Stop Time 1548 PT Time Calculation (min) 23 min Precautions Precautions Yes/No Yes Weight Bearing Status As tolerated;RLE General Precautions Fall Risk Pain Pain Yes Pain Score 7 Location R knee Activity Tolerance Endurance Tolerates 20 - 30 min activity with rests Cognition Overall Cognitive Status WFL Bed Mobility Supine to Sit Mod assist to left Sit to Supine Min assist to right TRANSFERS Sit to Stand Min assist Gait Gait Assistance Contact guard assist Assistive Device 2 Wheeled walker Ambulation Distance (Feet) 60ft Pattern R Decreased stance time Weight Bearing Status Weight bearing as tolerated Balance Sitting - Static Independent Sitting - Dynamic Independent Standing - Static SBA;Support of both upper extremities Standing - Dynamic CGA;Support of both upper extremities Exercises Ankle Pumps B x 20 Quad Sets R x 10 Short Arc Quad R x 10 assisted Heelslides R x 10 Straight Leg Raise R x 10 assisted Glut Sets x 10 Hip Abduction R x 10 Sitting LE Exercise R LAQ x 10 assisted PT Assessment PT Assessment Pt still struggling with pain which is limiting his ability to perform exercises involving signifciant quad contraction. he does loosen up a bit after a few steps, but notes a lot of pain during the first few steps. No LOB noted, but he requires assistance during bed mobility and sit to stand. Recommendation PT Recommendation Home with assistance;Outpatient PT PT Equipment Recommended 2 Wheeled walker Plan PT Treatments/Interventions Gait Training;Therapeutic Exercises;Therapeutic Activities Progress Progressing toward goals PT Frequency BID End of Session Safety End of Session Safety Call light within reach * Long Dotson PTA - 10/16/2019 6:10 PM CDT We will continue to focus on safe transfers and transfer independence, and ambulation ability/stairs to allow pt to go home safely. * Long Dotson PTA - 10/16/2019 11:55 AM CDT 10/16/19 0959 Therapy Visit Ordering Provider Dr. Steiner Subjective Pt lying supine in bed upon entry and agreeable to treatment. He reports he has a good amount of knee pain and denies any nausea or numbness. Reason for admission R TKA Revision Verified Two Patient Identifiers Yes Patient consents to therapy Yes Acute Inpatient PT Time Calculation PT Start Time 0959 PT Stop Time 1024 PT Time Calculation (min) 25 min Precautions Precautions Yes/No Yes Weight Bearing Status As tolerated;RLE General Precautions Fall Risk Pain Pain Yes Pain Score 6 Location R Knee Activity Tolerance Endurance Tolerates 20 - 30 min activity with rests Cognition Overall Cognitive Status WFL Bed Mobility Supine to Sit Mod assist to left TRANSFERS Sit to Stand Min assist Gait Gait Assistance Contact guard assist Assistive Device 2 Wheeled walker Ambulation Distance (Feet) 75ft Pattern R Decreased stance time Weight Bearing Status Weight bearing as tolerated Balance Sitting - Static Independent Sitting - Dynamic Independent Standing - Static SBA;Support of both upper extremities Standing - Dynamic CGA;Support of both upper extremities Exercises Ankle Pumps B x 20 Quad Sets R x 10 Short Arc Quad R x 10 Heelslides R x 10 Straight Leg Raise R x 10 assisted Glut Sets x 10 Hip Abduction R x 10 Sitting LE Exercise R LAQ x 10 assisted PT Assessment PT Assessment Pt required some assistance with supine to sit, and sit to stand transfers, but once he is on his feet he does well. He took a few steps to loosen up due to pain and stiffness but afterthat he did okay, with no LOB. He is able to perform quad sets, but struggles with SAQ and LAQ mostly due to pain, and after a few repetitoins with assistance it gets easier for him. 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 Abnormal [...] CATHETERIZATION 01/04/2018 occluded prox RCA w/well developed mahv-yp-wyqdg collaterals lvef 55-60% ??? CARDIAC CATHETERIZATION 11/13/2018 ??? FRACTURE SURGERY ??? HERNIA REPAIR ??? KNEE ARTHROPLASTY Bilateral ??? LITHOTRIPSY ??? XA ABLATION 05/19/2016 ??? 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 Pt reporting no numbness or tingling, has some pain in his right knee. Reports he received a pain pill at 8am. Patient lives at home with his , independent with adls. PLOF: ADLs Bathing: Independent Toileting: Independent UB Dressing: Independent LB Dressing: Independent Feeding: Independent Grooming: Independent IADLS Meal Preparation: Family Assist Cleaning: Family Assist Laundry: Family Assist Working/Volunteering: No Driving: Independent Care of Others: Independent Functional Mobility & Transfers Bed Mobility: Independent Toilet Transfers: Independent Tub/Shower Transfers: Independent Patient has been completing functional mobility with independence. Home Environment: House Levels: 1 Entrance: 2 steps with Left handrail(s) Bathroom is equipped with walk in shower with seat. Living arrangements - The patient lives with their spouse. 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 Test Engineer Strength 5/5 5/5 Shoulder flexion 5/5 5/5 Shoulder abduction 5/5 5/5 Elbow flexion 5/5 5/5 Elbow extension 5/5 5/5 Transfers: Bed mobility/rolling: Not Performed this Date Supine <> sit: Mod A Sit <> stand: Min A Stand-pivot: Not Performed this Date Toilet transfer: Not Performed this Date Assistive Device utilized during transfers: 2 wheeled walker ADLs Feeding: Not Performed this Date Toileting: Not Performed this Date UB Dressing: Not Performed this Date LB Dressing: Mod A Grooming: Not Performed this Date Bathing: Not Performed this Date Activity performed this session: Evaluation only this date. Education: Pt educated about purpose and benefit of participation in occupational therapy. 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 Pt is currently demonstrating decreased ability to complete ADLs and functional mobility. Pt will benefit from participation in skilled OT services to improve independence with adls and transfers to return home with at [facility] Recommended Interventions: Therapeutic Activity, Therapeutic Exercise and Self- Care Training Rehab Potential: Good Occupational Profile and History Complexity: Moderate (Expanded) Performance Skills Deficits: Low Performance Deficit Level: Low Clinical Decision Making: Low Evalualtion Complexity Level: Low OT Plan: Frequency: 5x/week Duration: 1 week Plan for next session: ADL and transfer training Anticipated Discharge at this time: Home with Assist Patient had difficulties with bed mobility this morning transitioning supine to sit EOB. Struggled with transitioning from standing to sitting in recliner. Safety at conclusion of Treatment: Upon OTR departure, pt in chair with PROGRAMMER BUSINESS present, call light within reach, and all needs met. * Arminda Fallon - 10/16/2019 10:28 AM CDT Patient lives at home with his . He is fairly independent at home. He has two steps to get intothe house with a railing. Patient has a CPAP machines. He thinks that he might go home later tonight. He will need a walker at discharge. He will do outpatient therapy at [facility]. His will transporthim home. He has no other discharge needs at this time. SW will continue to follow. 10/16/19 1027 Referral Data Referral Reason Discharge Planning Source of Information Patient Patient Information Primary Caregiver Self Support System Immediate family Baseline ADL's Functional Status Independent Living Arrangements Spouse/significant other Type of Residence Private residence Ambulation Assistance No Bathing/Grooming Assistance No Dressing Assistance No Behavior Oriented Communication Talks;Understands Serbian;Understands speaking Socioeconomic Needs Caregiver Needed No At Risk of Abuse or Neglect No Adequate Resources Yes Psychological Needs: Mental health concerns No Suspected Drug or Alcohol Abuse No Inappropriate Patient/Family Behaviors No Difficult Adjustment to Diagnosis No Recent Hospitalization Recent Hospitalization within 30 days No Anticipated Discharge Needs Change in Living Arrangements No In-Home Care or Equipment No Vocational and/or Role Loss No Inability to Complete ADL's No Anticipated DC Plan Living Arrangements Spouse/significant other Support Systems Spouse/significant other Type of Residence Private residence Assistance Needed No Patient expects to be discharged to: Home * Ashley Delgado RN - 10/16/2019 10:21 AM CDT Patient states he was told he will potentially go home later today. Will participate in PT this afternoon. Will continue to monitor pain level. * PETTY DeeP-BC - 10/16/2019 8:26 AM CDT Daily Progress Note Patient: Evaristo Zelaya is a 59-year-old male : 1960 Surgery date: 10/15/2019 Procedure: Revision RIGHT Total Knee Arthroplasty Bairon notified Inpatient: SUBJECTIVE Patient reports that his pain is doing well this morning and denies any numbness or tingling. OBJECTIVE Vital signs in the last 24 hours: Temp: [96.1 ??F (35.6 ??C)-98.2 ??F (36.8 ??C)] 98.1 ??F (36.7 ??C) Pulse: [72-99] 80 Resp: [16-20] 18 BP: (100-157)/(54-88) 106/70 Intake/Output last 3 shifts: I/O last 3 completed shifts: In: 6936.4 [P.O.:460; I.V.:6376.4; IV Piggyback:100] Out: 2545 [Urine:2145; Blood:400] Intake/Output this shift: I/O this shift: In: 440 [P.O.:440] Out: - Examination: Constitutional: Alert and in no acute distress. Neurological: The patient was oriented to person, place, and time. EXAM of RIGHT knee today reveals dressing clean dry and intact, increasing quad firing but unable to perform straight leg raise unassisted, neurovascularly intact. Labs and Cultures: Recent Results (from the past 24 hour(s)) CULTURE, TISSUE W/GRAM STAIN Collection Time: 10/15/19 12:44 PM Result Value Ref Range Spec. Description KNEE,RIGHT Special Requests: NO SPECIAL REQUEST Gram Stain Result NO ORGANISMS SEEN Culture Result: PENDING CULTURE, ANAEROBIC Collection Time: 10/15/19 12:52 PM Result Value Ref Range Spec. Description KNEE,RIGHT Special Requests: NO SPECIAL REQUEST Culture Result: PENDING CULTURE, ANAEROBIC Collection Time: 10/15/19 12:52 PM Result Value Ref Range Spec. Description KNEE,RIGHT Special Requests: NO SPECIAL REQUEST Culture Result: PENDING CULTURE, BODY FLUID W/ GRAM STAIN Collection Time: 10/15/19 12:52 PM Result Value Ref Range Spec. Description KNEE,RIGHT Special Requests: NO SPECIAL REQUEST Gram Stain Result NO ORGANISMS SEEN Culture Result: PENDING CULTURE, FUNGUS Collection Time: 10/15/19 12:52 PM Result Value Ref Range Spec. Description KNEE,RIGHT Special Requests: NO SPECIAL REQUEST STAIN RESULT: PENDING Culture Result: PENDING CULTURE, FUNGUS Collection Time: 10/15/19 12:52 PM Result Value Ref Range Spec. Description KNEE,RIGHT Special Requests: NO SPECIAL REQUEST STAIN RESULT: PENDING Culture Result: PENDING CULTURE, FUNGUS Collection Time: 10/15/19 12:52 PM Result Value Ref Range Spec. Description KNEE,RIGHT Special Requests: NO SPECIAL REQUEST STAIN RESULT: PENDING Culture Result: PENDING CULTURE, TISSUE W/GRAM STAIN Collection Time: 10/15/19 12:52 PM Result Value Ref Range Spec. Description KNEE,RIGHT Special Requests: NO SPECIAL REQUEST Gram Stain Result NO ORGANISMS SEEN Culture Result: PENDING CULTURE, TISSUE W/GRAM STAIN Collection Time: 10/15/19 12:52 PM Result Value Ref Range Spec. Description KNEE,RIGHT Special Requests: NO SPECIAL REQUEST Gram Stain Result NO ORGANISMS SEEN Culture Result: PENDING CULTURE, TISSUE W/GRAM STAIN Collection Time: 10/15/19 12:52 PM Result Value Ref Range Spec. Description KNEE,RIGHT Special Requests: NO SPECIAL REQUEST Gram Stain Result NO ORGANISMS SEEN Culture Result: PENDING CULTURE, ANAEROBIC Collection Time: 10/15/19 12:52 PM Result Value Ref Range Spec. Description KNEE,RIGHT Special Requests: NO SPECIAL REQUEST Culture Result: PENDING CULTURE, FUNGUS Collection Time: 10/15/19 12:52 PM Result Value Ref Range Spec. Description KNEE,RIGHT Special Requests: NO SPECIAL REQUEST STAIN RESULT: PENDING Culture Result: PENDING CULTURE, TISSUE W/GRAM STAIN Collection Time: 10/15/19 12:52 PM Result Value Ref Range Spec. Description KNEE,RIGHT Special Requests: NO SPECIAL REQUEST Gram Stain Result NO ORGANISMS SEEN Culture Result: PENDING POCT glucose Collection Time: 10/15/19 3:54 PM Result Value Ref Range GLUCOSE POC 223 (H) 70 - 99 MG/DL POCT glucose Collection Time: 10/15/19 4:46 PM Result Value Ref Range GLUCOSE POC 254 (H) 70 - 99 MG/DL POCT glucose Collection Time: 10/15/19 9:40 PM Result Value Ref Range GLUCOSE POC 198 (H) 70 - 99 MG/DL HEMOGLOBIN AND HEMATOCRIT - in AM X 1 Collection Time: 10/16/19 5:45 AM Result Value Ref Range HGB 10.4 (L) 13.0 - 18.0 G/DL HCT 32.9 (L) 37.0 - 52.0 % POCT glucose Collection Time: 10/16/19 6:16 AM Result Value Ref Range GLUCOSE POC 214 (H) 70 - 99 MG/DL Imaging: ASSESSMENT Patient Active Problem List Diagnosis ??? Essential hypertension ??? Paroxysmal atrial fibrillation (CMS/HCC) ??? snf current use of anticoagulant therapy ??? Obstructive sleep apnea ??? Hyperlipidemia ??? Diabetes (CMS/HCC) ??? Coronary artery disease ??? 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 Cardiovascular stress test abnormal ??? Arthritis of knee ??? Derangement of medial meniscus, left ??? Encounter for follow-up examination after completed treatment for conditions other than malignant neoplasm ??? Heartburn ??? Knee pain ??? Mechanical complication of internal orthopedic device, implant or graft, initial encounter ([facility]) ??? Patella-femoral syndrome ??? Pes anserine bursitis ??? Recurrent ventral incisional hernia ??? Abdominal pain ??? Failure of total knee replacement, initial encounter (CMS/HCC) ??? S/P coronary artery stent placement ??? Prosthetic knee implant failure (CMS/HCC) ??? Status post revision of total replacement of right knee PLAN: He is doing well with pain control this morning. He did have an expected decrease in hemoglobin from 12.9 to 10.4 due to acute blood loss and hemodilution but is hemodynamically stable. Cultures wereobtained intraoperative with as of today do not demonstrate any growth. We will continue with treatment plan for PT and OT to see but given his history of obesity this could slow his mobility. Depending on his progress with therapy today possible discharge home this afternoon with outpatient physical therapy at [facility] in [place]. Signed ISAURO DEE 10/16/2019 Cosigned by Warren Steiner MD at 10/16/2019 9:45 AM CDT * Mau Jackson - 10/15/2019 10:18 PM CDT Patient is resting comfortably in bed with call light within reach. Will continue to monitor throughout shift. * Darnell Cabrera, PT - 10/15/2019 5:[address] 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 Abnormal [...] CATHETERIZATION 01/04/2018 occluded prox RCA w/well developed nhji-yu-mgzom collaterals lvef 55-60% ??? CARDIAC CATHETERIZATION 11/13/2018 ??? FRACTURE SURGERY ??? HERNIA REPAIR ??? KNEE ARTHROPLASTY Bilateral ??? LITHOTRIPSY ??? XA ABLATION 05/19/2016 ??? 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 He had a few falls prior to this surgery, thinks is R knee gave out on him. R TKA performed today after previous failed replacement. Home Environment: House Entrance: 2 steps with Left handrail. Living arrangements - The patient lives with their spouse. Patient has been ambulatory with independence Objective: Patient was in bed upon pt arrival. Observation: Pt supine with elastic bandages surrounding his R knee. He is able to move bilateral toes but little to no active ankle motion at this time due to remaining anesthesia. Precautions/Restrictions: WBAT of R LE Pt fitted with CPM at time of evaluation. R Knee ROM set from 0-60 without pain. Notified CORPORATE BANKING OFFICER to remove CPM at 1940. Transfers: Bed mobility/rolling: Not Performed this Date Supine to sit: Not Performed this Date Sit to stand: Not Performed this Date Pivot: Not Performed this Date Ambulation: Not attempted this date. Activity performed this session: Evaluation only this date. 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 Patient is demonstrating deficits in Strength, ROM, Balance, Mobility and Transfers leading to decreased safety, increased fall risk, inability to perform self care and decreased independence. Skilled therapy is appropriate at this time to address these impairments and to move the patient towards their goal of return home and regain independence. Recommended Interventions: Therapeutic Activity, Therapeutic Exercise and Gait Training Rehab Potential: Good Personal Factors/Co-Morbidities Affecting Care: 3-4+ Examination of Body Systems: Low (1-2) Clinical Presentation of Patient: Stable Uncomplicated Eval Complexity: Low PT Plan: Frequency: BID and Daily on Tuesday Duration: 1 week Anticipated Discharge at this time: Home with Assist Plan for next session: begin transfers, sit to stands, and ambulation as tolerated. Safety at conclusion of Treatment: Patient in Bed, Call Light in Reach, Family in Room and Nursing Notified of Situation * Deidra Willingham RN - 10/11/2019 1:41 PM CDT Second attempt to reach patient, no answer. * Deidra Willingham RN - 10/08/2019 1:44 PM CDT Tried calling patient for preop phone call. No answer. Will attempt again at a later date. documented in this encounter H&P Notes * Warren Steiner MD - 10/15/2019 11:47 AM CDT HISTORY AND PHYSICAL INTERVAL NOTE: I have reviewed Evaristo Zelaya History & Physical which was performed within the past 30 days. After examining Evaristo Zelaya, no change has occurred in the patient's condition since the H&P was completed. Informed Consent Discussion: Potential benefits, risks, and side effects of the patient's procedure/surgery; the likelihood of the patient achieving his or her goals; and any potential problems that might occur during recuperation were discussed with the patient/family/personal textile designs sales representative. Reasonable alternatives to the patient's proposed procedure/surgery including benefits, risks, and side effects related to the alternatives and the risks related to not receiving the proposed care were also discussed with the patient/family/personal textile designs sales representative. Questions were answered and the patient /family/personal textile designs sales representative verbalized understanding and desires to proceed. Source Note - Warren Steiner MD - 09/21/2019 11:15 AM CDT Chief Complaint: Knee Injury (RIGHT DOI:09/07/2019) and Hip Injury (LEFT 09/16/2019) History of Present Illness: Evaristo Zelaya is a 59-year-old male who presents to the office for Knee Injury (RIGHT DOI:09/07/2019) and Hip Injury (LEFT 09/16/2019) Patient states that he recently fell on two separate occassions. He states that he first fell onto his RIGHT knee while missing a step. He states that he had pain and swelling in his RIGHT knee. He locates the pain on the knee cap. He has several abrasions on his RIGHT knee. Patient states that several days later he was trying to get out of a hammock and fell against a fence on his LEFT side. He states that he continues to have sharp pain on the lateral side of his LEFT hip. He states that the pain is worse when he tries to get up from a seated position. He denies any pain in his LEFT groin. He does not use any assistive devices. He states that he has been seen before for his RIGHT knee that was replaced 20 years ago. Patient states that he is trying to get his a1c down prior to proceeding with surgery. Patient states that his hemoglobin a1c is down to 8.5%. ROS: See HPI for pertinent positives Problem List: Patient Active Problem List Diagnosis ??? Essential hypertension ??? Paroxysmal atrial fibrillation ([facility]/HCC) ??? director long term care current use of anticoagulant therapy ??? Obstructive sleep apnea ??? Hyperlipidemia ??? Diabetes ([facility]/HCC) ??? Coronary artery disease of [place] artery of [place] heart with stable angina pectoris ([facility]) ??? 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 Cardiovascular stress test abnormal ??? Arthritis of knee ??? Derangement of medial meniscus, left ??? Encounter for follow-up examination after completed treatment for conditions other than malignant neoplasm ??? Heartburn ??? Knee pain ??? Mechanical complication of internal orthopedic device, implant or graft, initial encounter ([facility]) ??? Patella-femoral syndrome ??? Pes anserine bursitis ??? Recurrent ventral incisional hernia ??? Abdominal pain ??? Failure of total knee replacement, initial encounter ([facility]) ??? S/P coronary artery stent placement History: Past Medical History: Diagnosis Date ??? Abnormal stress test ??? Arthritis ??? Chest pain ??? 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 Diabetes ([facility]/HCC) ??? Fatigue ??? GERD (gastroesophageal reflux disease) ??? Headache ??? Hyperlipidemia ??? Hypertension has had elevated B/P readings ??? Kidney stone ??? SARAI on CPAP ??? Paroxysmal atrial fibrillation (CMS/HCC) ??? PONV (postoperative nausea and vomiting) ??? SOB (shortness of breath) Past Surgical History: Procedure Laterality Date ??? CARDIAC CATHETERIZATION 01/04/2018 occluded prox RCA w/well developed nmci-sw-hqovt collaterals lvef 55-60% ??? FRACTURE SURGERY ??? HERNIA REPAIR ??? KNEE ARTHROPLASTY ??? LITHOTRIPSY ??? XA ABLATION 05/19/2016 ??? XA CORONARY INTERVENTION 03/24/[address] Cleary Family History Problem Relation Name Age of Onset ??? Hypertension Mother ??? Hypertension Sister ??? No Known Problems [...] file Occupational History ??? 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 Financial resource strain: Not on file ??? Food insecurity: Worry: Not on file Inability: Not on file ??? Transportation needs: Medical: Not on file Non-medical: Not on file Tobacco Use ??? Smoking status: Never Smoker ??? Smokeless tobacco: Never Used Substance and Sexual Activity ??? Alcohol use: Yes ??? Drug use: No ??? Sexual activity: Not on file Lifestyle ??? Physical activity: Days per week: Not on file Minutes per session: Not on file ??? Stress: Not on file Relationships ??? Social connections: Talks on phone: Not on file Gets together: Not on file Attends sikh service: Not on file Active member of [...] (81 mg total) by mouth daily., Disp: 100 tablet, Rfl: 0 ??? atorvastatin 40 MG tablet, Take 40 mg by mouth daily., Disp: , Rfl: ??? famotidine 20 MG tablet, Take 2 tablets by mouth 2 (two) times a day., Disp: , Rfl: ??? furosemide 20 MG tablet, Take 20 mg by mouth daily. , Disp: , Rfl: ??? gabapentin 300 MG capsule, Take 300 mg by mouth 3 (three) times daily. , Disp: , Rfl: ??? HUMALOG 100 UNIT/ML injection (VIAL), Inject 20 Units into the skin nightly at bedtime. , Disp:, Rfl: ??? isosorbide mononitrate ER 30 MG 24 hr tablet, Take 1 tablet (30 mg total) by mouth daily., Disp: 30 tablet, Rfl: 7 ??? LEVEMIR 100 UNIT/ML injection, Inject 20 Units into the skin 3 (three) times daily with meals. , Disp: , Rfl: ??? metFORMIN 850 MG tablet, Take 850 mg by mouth 3 (three) times a day. , Disp: , Rfl: ??? METOPROLOL SUCCINATE ER 50 MG 24 hr tablet, TAKE ONE TABLET BY MOUTH 2 TIMES A DAY. (Patient taking differently: TAKE ONE TABLET BY MOUTH once daily), Disp: 180 tablet, Rfl: 3 ??? nitroglycerin 0.4 MG SL tablet, Place 1 tablet (0.4 mg total) under the tongue every 5 (five) minutes as needed for Chest Pain., Disp: 25 tablet, Rfl: 1 ??? NOVOFINE 32G X 6 MM Misc, , Disp: , Rfl: ??? NOVOLOG FLEXPEN 100 UNIT/ML injection (PEN), Inject 32 Doses as directed 3 (three) times a day., Disp: , Rfl: ??? PRADAXA 150 MG Cap, TAKE ONE CAPSULE BY MOUTH TWICE A DAY, Disp: 60 capsule, Rfl: 11 ??? spironolactone 25 MG tablet, Take 25 mg by mouth daily., Disp: , Rfl: ??? tamsulosin 0.4 MG Cap, Take 0.4 mg by mouth daily., Disp: , Rfl: ??? traMADol 50 MG tablet, Take 50 mg by mouth every 6 (six) hours as needed for Pain., Disp: , Rfl: ??? TRUE METRIX BLOOD GLUCOSE TEST test strip, , Disp: , Rfl: Allergies Allergen Reactions ??? Doxycycline Other (see comment) Blisters in the mouth ? ? Tetracyclines & Related Other (see comment) Blisters in the mouth Objective: Body mass index is 35.15 kg/m??. Last Recorded Weight 09/21/19 1126 Weight: 114.3 kg (252 lb) Physical exam: Constitutional: Alert and in no acute distress. Neurological: The patient was oriented to person, place, and time. Eyes: The sclera and conjunctiva were normal ENT: Hearing was normal. Neck: The appearance of the neck was normal. Cardiovascular: Normal pulses. Pulmonary: No respiratory distress. Skin: No injuries or skin lesion. Musculoskeletal: Right knee exam demonstrates diffuse tenderness with palpation. He is ligamentously stable and has good range of motion. No erythema. No swelling. He does have an abrasion on the anterior aspect of the knee from his recent fall. Left hip exam demonstrates tenderness directly over the prominence of the trochanter with no groin pain with rotation. Results: X-rays were reviewed of the left hip demonstrating minimal degenerative changes with no acute bony injury. Right knee x-rays demonstrate total knee arthroplasty in good alignment. There is a hint of subtle lucency appreciated around the implants. The patella appears well fixed Assessment: Encounter Diagnose(s) ICD-10-CM ICD-9-CM SNOMED CT(R) 1. Bilateral hip pain M25.551 719.45 HIP PAIN M25.552 2. Right knee pain M25.561 719.46 PAIN IN RIGHT KNEE XR KNEE RT 2V XR KNEE STAND AP VANITA ONLY 3. Failure of total knee replacement, initial encounter ([facility]) T84.018A 996.47 PROSTHETIC JOINT MECHANICAL FAILURE Z96.659 V43.65 4. snf current use of anticoagulant therapy Z79.01 V58.61 LONG-TERM CURRENT USE OF ANTICOAGULANT 5. Trochanteric bursitis of left hip M70.62 726.5 TROCHANTERIC BURSITIS OF LEFT HIP Procedure: Procedure: Injection of the Greater Trochanter bursa on the left. Indications for the procedure include Inflammation. The procedure's were discussed with the patient. Verbal consent was obtained prior to the procedure. Procedure Note: Evaristo was prepped and draped in the usual sterile fashion using alcohol and using betadine. Anesthesia: Ethyl chloride spray was used as a topical anesthetic. A 22 gauge and 1.5 Inch needle was used to inject 8 mL lidocaine 1% and 1 mL methylprednisolone 80 mg/mL. Dressing: A bandage was applied. Post-Procedure: the patient tolerated the procedure well. Complications: there were no complications. Follow-up in the office as needed. Plan: I injected the left hip bursa with Depo-Medrol and lidocaine and we will see if this helps improving symptoms. He indicates he is struggling with pain especially at night because of his left hip. Therapy may be an option depending on results of the injection. He continues to describe start up pain with his right knee and has functional disability because of his persistent right knee pain. He doesnot indicate any issues at rest. He has been through therapy in the past and has had aspiration demonstrating no abnormalities of the joint fluid. Laboratory studies have demonstrated no signs of infection. His hemoglobin A1c has been elevated but is down to 8.5 now. He indicates his desire to proceed with revision right knee replacement on October 14 as all of his symptoms suggest implant loosening. Need to stop his blood thinner prior to surgery. I reviewed risks and benefits Follow up: Return for Post-Op. WARREN STEINER MD documented in this encounter Nursing Notes * Kimberly Orozco RN - 10/18/2019 11:[address] Steiner here to see pt. Ok to DC. 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 His pain is pretty much always weightbearing. I do not necessarily see signs of failure on x-ray and I did not appreciate ostial lysis but because of his persistent symptoms I have recommended the above procedure and he elects to proceed after reviewing risks and benefits Procedure: After regional block was performed in the holding area the patient was taken to the operating room where he was positioned in supine fashion after spinal anesthesia was administered. The tourniquet was applied to the right proximal thigh and antibiotics and tranexamic acid given intravenously. The right lower extremity was prepped and draped in usual sterile fashion. An Esmarch wrap was used to exsanguinate the right lower extremity and the tourniquet inflated to 300 mmHg. The old incision was used for exposure using a midline approach and the patella was everted. Fat pad and scar tissue was resected. Quite a bit of inflammatory fibrous tissue was appreciated throughout the knee and this was removed using rongeurs. Tamp was used to test the components and neither 1 appeared loose. Patella also was stable and this was not revised. We then used a Gigli saw to start removal of the femur and then used the flexible osteotomes. A reciprocating saw was used to free up the tibial tray followed by flexible osteotomes and both components were removed with excellent bony preservation. A large cavity was appreciated in the medial femoral condyle with fibrotic appearing fatty tissuefilling it. A curette was used to debride the cavity and this extended all the way through the femoral condyle and up the. We then prepared the tibia by reaming the tibia and then inserting the 29 mmsleeve. We used the sleeve as a template for resecting the proximal tibia. A small amount of lysis was present at the medial tibial plateau. The trial tibial tray was then inserted using a size 5. Wethen reamed the femur and inserted a sleeve and made minimal resections for the femur. We used +4 distal augments bilaterally. The trial components were inserted and a 6 mm spacer inserted demonstrating excellent range of motion with excellent soft tissue balance and good patella tracking. The trial components were removed and we then used cancellus allograft and an impaction grafting technique was used to graft the cavity in the medial femoral condyle. After copiously irrigated the cancellus surfaces and assembling the final components on the back table cement was mixed and injected into thecancellus surfaces. The tibial component was then impacted with removal of excess cement followed by the femoral component with cement filling the remainder of the lytic area. A spacer was inserted the knee placed in full extension to apply compression of the components. The tourniquet was releasedat 2 hours and 16 minutes. The wounds were copiously irrigated and electrocautery used to obtain hemostasis. I was pleased with the 6 mm spacer and subsequently inserted the final rotating platform spacer. Vashe wound irrigant was used to irrigate the wound and the extensor mechanism approximated using #1 Vicryl. space was also closed using #1 Vicryl and 2-0 Vicryl was used to close subcutaneous tissue followed by skin melanie completed the skin closure. Sterile dressings were applied and overwrapped with web roll. The drapes then withdrawn and an James wrap used overwrap the dressing. Sedation was discontinued the patient was transferred to a stretcher then to the PACU in good condition estimated blood loss was 400 cc and sponge and needle counts were correct x2 following the procedure * Brief Op Note - Warren Steiner MD - 10/15/2019 3:28 PM CDT [facility] Brief Op [facility] RIGHT Total Knee Arthroplasty [facility] notified Inpatient Procedure Note Evaristo Zelaya 10/15/2019 1208 Procedure(s) (LRB): Revision RIGHT Total Knee Arthroplasty [facility] notified Inpatient (Right) Surgeon(s): Warren Steiner MD Buyer Tobacco Head: None Anesthesia: Spinal Pre-Op Diagnosis: T84.018A Post-Op Diagnosis: 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 Findings: Medial femoral condyle osteolysis Estimated Blood Loss: 400 Specimens: ID Type Source Tests Collected by Time 1 : fluid BODY FLUID KNEE, RIGHT CULTURE, ANAEROBIC, CULTURE, BODY FLUID W/ GRAM STAIN, CULTURE, FUNGUS Warren Steiner MD 10/15/2019 1241 2 : lateral TISSUE KNEE, RIGHT CULTURE, ANAEROBIC, CULTURE, FUNGUS, CULTURE, TISSUE W/GRAM STAIN Warren Steiner MD 10/15/2019 1244 3 : superior TISSUE KNEE, RIGHT CULTURE, ANAEROBIC, CULTURE, FUNGUS, CULTURE, TISSUE W/GRAM STAIN Warren Steiner MD 10/15/2019 1247 4 : inferior TISSUE KNEE, RIGHT CULTURE, ANAEROBIC, CULTURE, FUNGUS, CULTURE, TISSUE W/GRAM STAIN Warren Steiner MD 10/15/2019 1248 5 : medial TISSUE KNEE, RIGHT CULTURE, ANAEROBIC, CULTURE, FUNGUS, CULTURE, TISSUE W/GRAM STAIN Warren Steiner MD 10/15/2019 1252 6 : Medial Femoral Chondyle TISSUE KNEE, RIGHT CULTURE, ANAEROBIC, CULTURE, FUNGUS, CULTURE, TISSUEW/GRAM STAIN Warren Steiner MD 10/15/2019 1316 WARREN STEINER MD Date: 10/15/2019 Time: 3:28 PM documented in this encounter Plan of Treatment Upcoming Encounters Date Type Department Care Team (Late st Contact Info) Description 04/25/2024 11:00 AM MANAGER SIX SIGMA Appointment [facility] [address] [place] [id number] Ti Bonilla MD [address] [place] [phone] 05/23/2024 3:30 PM MANAGER SIX SIGMA Office Visit [facility] [address] [place] [phone] Jyoti Escobar MD [address] [place] [address] [phone] documented as of this encounter Procedures Procedure Name Priority Date/Time Associated Diagnosis Comments POCT GLUCOSE - RAMOS DOCKED DEVICE Routine 10/18/2019 11:16 AM CDT POCT GLUCOSE - RAMOS DOCKED DEVICE Routine 10/18/2019 6:05 AM CDT POCT GLUCOSE - RAMOS DOCKED DEVICE Routine 10/17/2019 8:33 PM CDT POCT GLUCOSE - RAMOS DOCKED DEVICE Routine 10/17/2019 4:10 PM CDT POCT GLUCOSE - RAMOS DOCKED DEVICE Routine 10/17/2019 11:04 AM CDT XR KNEE STAND AP VANITA ONLY Today 10/17/2019 9:21 AM CDT XR KNEE RT 2V Today 10/17/2019 9:21 AM CDT POCT GLUCOSE - RAMOS DOCKED DEVICE Routine 10/17/2019 6:04 AM CDT POCT GLUCOSE - RAMOS DOCKED DEVICE Routine 10/16/2019 8:06 PM CDT POCT GLUCOSE - RAMOS DOCKED DEVICE Routine 10/16/2019 3:57 PM CDT POCT GLUCOSE - RAMOS DOCKED DEVICE Routine 10/16/2019 11:03 AM CDT POCT GLUCOSE - RAMOS DOCKED DEVICE Routine 10/16/2019 6:16 AM CDT HEMOGLOBIN AND HEMATOCRIT Routine 10/16/2019 5:45 AM CDT POCT GLUCOSE - RAMOS DOCKED DEVICE Routine 10/15/2019 9:40 PM CDT POCT GLUCOSE - RAMOS DOCKED DEVICE Routine 10/15/2019 4:46 PM CDT POCT GLUCOSE - RAMOS DOCKED DEVICE Routine 10/15/2019 3:54 PM CDT CULTURE, TISSUE W/GRAM STAIN Routine 10/15/2019 12:52 PM CDT CULTURE, TISSUE W/GRAM STAIN Routine 10/15/2019 12:52 PM CDT CULTURE, TISSUE W/GRAM STAIN Routine 10/15/2019 12:52 PM CDT CULTURE, TISSUE W/GRAM STAIN Routine 10/15/2019 12:52 PM CDT CULTURE, FUNGUS Routine 10/15/2019 12:52 PM CDT CULTURE, FUNGUS Routine 10/15/2019 12:52 PM CDT CULTURE, FUNGUS Routine 10/15/2019 12:52 PM CDT CULTURE, FUNGUS Routine 10/15/2019 12:52 PM CDT CULTURE, FUNGUS Routine 10/15/2019 12:52 PM CDT HC BODY FLUID CULTURE Routine 10/15/2019 12:52 PM CDT CULTURE, ANAEROBIC Routine 10/15/2019 12 :52 PM CDT CULTURE, ANAEROBIC Routine 10/15/2019 12 :52 PM CDT CULTURE, ANAEROBIC Routine 10/15/2019 12 :52 PM CDT CULTURE, ANAEROBIC Routine 10/15/2019 12 :52 PM CDT CULTURE, ANAEROBIC Routine 10/15/2019 12 :52 PM CDT CULTURE, TISSUE W/GRAM STAIN Routine 10/15/2019 12:44 PM CDT CULTURE, FUNGUS Routine 10/15/2019 12:44 PM CDT CULTURE, ANAEROBIC Routine 10/15/2019 12 :44 PM CDT ARTHROPLASTY KNEE TOTAL 10/15/2019 11:50 AM CDT T84.018A documented in this encounter Results * (ABNORMAL) POCT glucose (10/18/2019 11:16 AM CDT) GLUCOSE POC 175(H) 70 - 99 MG/DL 10/18/2019 11:18 AM CDT [facility] ORDERS INTERFACE 10/18/2019 11:1 6 AM CDT Warren Steiner MD POCT ORDERABLES - DEVICE Final Result Performing Organization Address [facility] de Phone Number [facility] ORDERS INTERFACE US * (ABNORMAL) POCT glucose (10/18/2019 6:05 AM CDT) GLUCOSE POC 136(H) 70 - 99 MG/DL 10/18/2019 6:18 AM CDT [facility] ORDERS INTERFACE 10/18/2019 6:05 AM CDT Warren Steiner MD POCT ORDERABLES - DEVICE Final Result Performing Organization Address [facility] de Phone Number [facility] ORDERS INTERFACE US * (ABNORMAL) POCT glucose (10/17/2019 8:33 PM CDT) GLUCOSE POC 143(H) 70 - 99 MG/DL 10/17/2019 8:40 PM CDT [facility] ORDERS INTERFACE 10/17/2019 8:33 PM CDT Warren Steiner MD POCT ORDERABLES - DEVICE Final Result Performing Organization Address [facility] de Phone Number [facility] ORDERS INTERFACE US * (ABNORMAL) POCT glucose (10/17/2019 4:10 PM CDT) GLUCOSE POC 150(H) 70 - 99 MG/DL 10/17/2019 4:22 PM CDT [facility] ORDERS INTERFACE 10/17/2019 4:10 PM CDT us Warren Steiner MD POCT ORDERABLES - DEVICE Final Result Performing Organization Address [facility] Co de Phone Number [facility] ORDERS INTERFACE US * (ABNORMAL) POCT glucose (10/17/2019 11:04 AM CDT) GLUCOSE POC 189(H) 70 - 99 MG/DL 10/17/2019 11:06 AM CDT [facility] ORDERS INTERFACE 10/17/2019 11:0 4 AM CDT us Warren Steiner MD POCT ORDERABLES - DEVICE Final Result Performing Organization Address [facility] Co de Phone Number [facility] ORDERS INTERFACE US * XR KNEE STAND AP VANITA ONLY (10/17/2019 9:21 AM CDT) Anatomical Region Laterality Modality Knee Radiographic Shannan ging 10/17/2019 9:35 AM CDT Impressions 10/17/2019 9:40 AM CDT IMPRESSION: No acute findings. Expected early postoperative changes on the right. Interpreted By: Matteo Buenrostro, 10/17/2019 9:35 AM Narrative 10/17/2019 9:40 AM CDT Examination: Bilateral knees. Exam time: 0908 hours. Clinical history: Surgical aftercare. Pain. Comparison: 09/21/2019. Technique: Bilateral weightbearing PA and sunrise and weightbearing lateral views on the right. Findings: No fracture, dislocation or other acute bony abnormality is identified. Revision arthroplasty on the right is now in place with the components appearing in satisfactory alignment and position. Soft tissue edema and small amounts of gas in the soft tissues are consistent with recent surgery. Skin melanie are in place. Arthroplasty on the left remains in place with the components in stable alignment in single projection. No other significant bone or joint abnormality is noted. Procedure Note Matteo Buenrostro MD - 10/17/2019 Examination: Bilateral knees. Exam time: 0908 hours. Clinical history: Surgical aftercare. Pain. Comparison: 09/21/2019. Technique: Bilateral weightbearing PA and sunrise and weightbearinglateral views on the right. Findings: No fracture, dislocation or other acute bony abnormality is identified. Revision arthroplasty on the right is now in place with the components appearing in satisfactory alignment and position. Soft tissue edema and small amounts of gas in the soft tissues are consistent with recent surgery. Skin melanie are in place. Arthroplasty on the leftremains in place with the components in stable alignment in single projection.No other significant bone or joint abnormality is noted. IMPRESSION: No acute findings. Expected early postoperative changes on the right. Interpreted By: Matteo Buenrostro, 10/17/2019 9:35 AM us Dari Piña [employer] PERSON-[facility] GENERAL IMAGING Final Resu lt * XR KNEE RT 2V (10/17/2019 9:21 AM CDT) Anatomical Region Laterality Modality Knee Radiographic Shannan ging 10/17/2019 9:35 AM CDT Impressions 10/17/2019 9:40 AM CDT IMPRESSION: No acute findings. Expected early postoperative changes on the right. Interpreted By: Matteo Buenrostro, 10/17/2019 9:35 AM Narrative 10/17/2019 9:40 AM CDT Examination: Bilateral knees. Exam time: 0908 hours. Clinical history: Surgical aftercare. Pain. Comparison: 09/21/2019. Technique: Bilateral weightbearing PA and sunrise and weightbearing lateral views on the right. Findings: No fracture, dislocation or other acute bony abnormality is identified. Revision arthroplasty on the right is now in place with the components appearing in satisfactory alignment and position. Soft tissue edema and small amounts of gas in the soft tissues are consistent with recent surgery. Skin melanie are in place. Arthroplasty on the left remains in place with the components in stable alignment in single projection. No other significant bone or joint abnormality is noted. Procedure Note Matteo Buenrostro MD - 10/17/2019 Examination: Bilateral knees. Exam time: 0908 hours. Clinical history: Surgical aftercare. Pain. Comparison: 09/21/2019. Technique: Bilateral weightbearing PA and sunrise and weightbearinglateral views on the right. Findings: No fracture, dislocation or other acute bony abnormality is identified. Revision arthroplasty on the right is now in place with the components appearing in satisfactory alignment and position. Soft tissue edema and small amounts of gas in the soft tissues are consistent with recent surgery. Skin melanie are in place. Arthroplasty on the leftremains in place with the components in stable alignment in single projection.No other significant bone or joint abnormality is noted. IMPRESSION: No acute findings. Expected early postoperative changes on the right. Interpreted By: Matteo Buenrostro, 10/17/2019 9:35 AM us Dari Sallie Piña [employer] F[employer]OR PERSON-[facility] GENERAL IMAGING Final Resu lt * (ABNORMAL) POCT glucose (10/17/2019 6:04 AM CDT) GLUCOSE POC 178(H) 70 - 99 MG/DL 10/17/2019 6:06 AM CDT [facility] ORDERS INTERFACE 10/17/2019 6:04 AM CDT Warren Steiner MD POCT ORDERABLES - DEVICE Final Result [facility] ORDERS INTERFACE US * (ABNORMAL) POCT glucose (10/16/2019 8:06 PM CDT) GLUCOSE POC 205(H) 70 - 99 MG/DL 10/16/2019 8:11 PM CDT [facility] ORDERS INTERFACE 10/16/2019 8:06 PM CDT Warren Steiner MD POCT ORDERABLES - DEVICE Final Result [facility] ORDERS INTERFACE US * POCT glucose (10/16/2019 3:57 PM CDT) GLUCOSE POC 75 70 - 99 MG/DL 10/16/2019 4:00 PM CDT [facility] ORDERS INTERFACE 10/16/2019 3:57 PM CDT us Warren Steiner MD POCT ORDERABLES - DEVICE Final Result Performing Organization Address [facility] Co de Phone Number [facility] ORDERS INTERFACE US * (ABNORMAL) POCT glucose (10/16/2019 11:03 AM CDT) GLUCOSE POC 148(H) 70 - 99 MG/DL 10/16/2019 11:15 AM CDT [facility] ORDERS INTERFACE 10/16/2019 11:0 3 AM CDT Warren Steiner MD POCT ORDERABLES - DEVICE Final Result Performing Organization Address [facility] Co de Phone Number [facility] ORDERS INTERFACE US * (ABNORMAL) POCT glucose (10/16/2019 6:16 AM CDT) GLUCOSE POC 214(H) 70 - 99 MG/DL 10/16/2019 6:21 AM CDT [facility] ORDERS INTERFACE 10/16/2019 6:16 AM CDT us Warren Steiner MD POCT ORDERABLES - DEVICE Final Result Performing Organization Address [facility] de Phone Number [facility] ORDERS INTERFACE US * (ABNORMAL) HEMOGLOBIN AND HEMATOCRIT - in AM X 1 (10/16/2019 5:45 AM CDT) HGB 10.4(L) 13.0 - 18.0 G/DL 10/16/2019 6:10 AM CDT [facility] HCT 32.9(L) 37.0 - 52.0 % 10/16/2019 6:10 AM CDT [facility] 10/16/2019 5:45 AM CDT us Warren Steiner MD LABORATORY Final Result Performing Organization Address City/[facility]/ZIP Co de Phone Number [facility] [address] [id number], [place] [phone] * (ABNORMAL) POCT glucose (10/15/2019 9:40 PM CDT) GLUCOSE POC 198(H) 70 - 99 MG/DL 10/16/2019 5:19 AM CDT [facility] ORDERS INTERFACE 10/15/2019 9:40 PM CDT Warren Steiner MD POCT ORDERABLES - DEVICE Final Result Performing Organization Address [facility] Co de Phone Number [facility] ORDERS INTERFACE US * (ABNORMAL) POCT glucose (10/15/2019 4:46 PM CDT) GLUCOSE POC 254(H) 70 - 99 MG/DL 10/15/2019 5:05 PM CDT [facility] ORDERS INTERFACE 10/15/2019 4:46 PM CDT us Warren Steiner MD POCT ORDERABLES - DEVICE Final Result Performing Organization Address [facility] Co de Phone Number [facility] ORDERS INTERFACE US * (ABNORMAL) POCT glucose (10/15/2019 3:54 PM CDT) GLUCOSE POC 223(H) 70 - 99 MG/DL 10/15/2019 4:06 PM CDT [facility] ORDERS INTERFACE 10/15/2019 3:54 PM CDT us Warren Steiner MD POCT ORDERABLES - DEVICE Final Result Performing Organization Address [facility] Co de Phone Number [facility] ORDERS INTERFACE US * CULTURE, TISSUE W/GRAM STAIN (10/15/2019 12:52 PM CDT) SPEC DESCRIPTION KNEE,RIGHT 10/15/2019 1:18 PM CDT [facility] SPECIAL REQUESTS NO SPECIAL REQUEST 10/15/2019 1:18 PM CDT [facility] GRAM STAIN RESULT NO ORGANISMS SEEN 10/15/2019 3:44 PM CDT [facility] CULTURE RESULT NO GROWTH 5 DAYS 10/21/2019 10:[address] [facility] Tissue specimen (specimen) STRUCTURE OF RIGHT KNEE REGION / Unknown 10/15/2019 1:16 PM CDT us Warren Steiner MD MICROBIOLOGY - GENERAL ORDERAB LES Final Result Performing Organization Address [facility] Co de Phone Number [facility] [address] [place] [address], [phone] [facility] [address] [place] [phone], * CULTURE, FUNGUS (10/15/2019 12:52 PM CDT) SPEC DESCRIPTION KNEE,RIGHT: MEDIAL FEMORAL CONDYLE 10/15/2019 1:18 PM CDT [facility] SPECIAL REQUESTS NO SPECIAL REQUEST 10/15/2019 1:18 PM CDT [facility] STAIN RESULT: NO YEAST OR FUNGAL ELEMENTS SEEN 10/17/2019 4:[address] [facility] CULTURE RESULT NO FUNGUS ISOLATED AFTER 4 WEEKS 11/13/2019 5:[address] [facility] Tissue specimen (specimen) STRUCTURE OF RIGHT KNEE REGION / Unknown 10/15/2019 1:16 PM CDT us Warren Steiner MD MICROBIOLOGY - GENERAL ORDERAB LES Final Result Performing Organization Address [facility] Co de Phone Number [facility] [address] [place] [address], [phone] [facility] [address] [place] [id number], [place] [phone] * CULTURE, ANAEROBIC (10/15/2019 12:52 PM CDT) SPEC DESCRIPTION KNEE,RIGHT 10/15/2019 1:18 PM CDT [facility] SPECIAL REQUESTS NO SPECIAL REQUEST 10/15/2019 1:18 PM CDT [facility] CULTURE RESULT NO ANAEROBES ISOLATED 10/21/2019 10:[address] [facility] Tissue specimen (specimen) STRUCTURE OF RIGHT KNEE REGION / Unknown 10/15/2019 1:16 PM CDT Warren Steiner MD MICROBIOLOGY - GENERAL ORDERAB LES Final Result [facility] [address] [place] [address], [place] [phone] [facility] [place] [address], [place] [phone] * CULTURE, TISSUE W/GRAM STAIN (10/15/2019 12:52 PM CDT) SPEC DESCRIPTION KNEE,RIGHT 10/15/2019 1:05 PM CDT [facility] SPECIAL REQUESTS NO SPECIAL REQUEST 10/15/2019 1:05 PM CDT [facility] GRAM STAIN RESULT NO ORGANISMS SEEN 10/15/2019 3:43 PM CDT [facility] [facility] CULTURE RESULT RARE STAPHYLOCOCCU S, COAGULASE NEGATIVE 10/19/2019 9:[address] [facility] Tissue specimen (specimen) STRUCTURE OF RIGHT KNEE REGION / Unknown 10/15/2019 12:52 PM CDT Narrative Organism Antibiotic Method Susceptibility Staphylococcus, coagulase negative CLINDAMYCIN TOSHA (V ITEK) Sensitive Staphylococcus, coagulase negative ERYTHROMYCIN TOSHA (V ITEK) Resistant Staphylococcus, coagulase negative GENTAMICIN TOSHA (V ITEK) Sensitive Staphylococcus, coagulase negative OXACILLIN TOSHA (V ITEK) Resistant Staphylococcus, coagulase negative PENICILLIN G TOSHA (V ITEK) Resistant Staphylococcus, coagulase negative RIFAMPIN TOSHA (V ITEK) Sensitive Staphylococcus, coagulase negative TRIMETH-SULFAMETH. TOSHA (VITEK) Resistant Staphylococcus, coagulase negative TETRACYCLINE TOSHA (V ITEK) Sensitive Staphylococcus, coagulase negative TIGECYCLINE TOSHA (V ITEK) Sensitive Staphylococcus, coagulase negative VANCOMYCIN TOSHA (V ITEK) Sensitive us Warren Steiner MD MICROBIOLOGY - GENERAL ORDERAB LES Final Result Performing Organization Address City/[facility]/ZIP Co de Phone Number [facility] [address] [place] [address], [place] [phone] [facility] [address] [place] [phone], * CULTURE, TISSUE W/GRAM STAIN (10/15/2019 12:52 PM CDT) SPEC DESCRIPTION KNEE,RIGHT 10/15/2019 1:05 PM CDT [facility] SPECIAL REQUESTS NO SPECIAL REQUEST 10/15/2019 1:05 PM CDT [facility] GRAM STAIN RESULT NO ORGANISMS SEEN 10/15/2019 3:43 PM CDT [facility] CULTURE RESULT NO GROWTH 5 DAYS 10/21/2019 10:[address] [facility] Tissue specimen (specimen) STRUCTURE OF RIGHT KNEE REGION / Unknown 10/15/2019 12:48 PM CDT Warren Steiner MD MICROBIOLOGY - GENERAL ORDERAB LES Final Result [facility] [address] [place] [address], [phone] [facility] [address] [place] [phone], * CULTURE, TISSUE W/GRAM STAIN (10/15/2019 12:52 PM CDT) SPEC DESCRIPTION KNEE,RIGHT 10/15/2019 1:05 PM CDT [facility] SPECIAL REQUESTS NO SPECIAL REQUEST 10/15/2019 1:05 PM CDT [facility] GRAM STAIN RESULT NO ORGANISMS SEEN 10/15/2019 3:43 PM CDT [facility] CULTURE RESULT RARE ALPHA STREPTOCOCCUS 10/18/2019 9:[address] [facility] Tissue specimen (specimen) STRUCTURE OF RIGHT KNEE REGION / Unknown 10/15/2019 12:47 PM CDT Narrative Organism Antibiotic Method Susceptibility Alpha streptococcus CEFOTAXIME TOSHA (ETEST) 0.064: Sensitive Alpha streptococcus PENICILLIN TOSHA (ETEST) 0.094: Sensitive us Warren Steiner MD MICROBIOLOGY - GENERAL ORDERAB LES Final Result Performing Organization Address [facility]/ZIP Co de Phone Number [facility] [address] [place] [address], [phone] [facility] [address] [place] [address], * CULTURE, FUNGUS (10/15/2019 12:52 PM CDT) SPEC DESCRIPTION KNEE,RIGHT: MEDIAL 10/15/2019 1:05 PM CDT [facility] SPECIAL REQUESTS NO SPECIAL REQUEST 10/15/2019 1:05 PM CDT [facility] STAIN RESULT: NO YEAST OR FUNGAL ELEMENTS SEEN 10/17/2019 4:[address] [facility] CULTURE RESULT NO FUNGUS ISOLATED AFTER 4 WEEKS 11/13/2019 5:[address] [facility] Tissue specimen (specimen) STRUCTURE OF RIGHT KNEE REGION / Unknown 10/15/2019 12:52 PM CDT us Warren Steiner MD MICROBIOLOGY - GENERAL ORDERAB LES Final Result Performing Organization Address [facility] Co de Phone Number [facility] [address] [place] [address], [phone] [facility] [address] [place] [address], [place] [phone] * CULTURE, FUNGUS (10/15/2019 12:52 PM CDT) SPEC DESCRIPTION KNEE,RIGHT: INFERIOR 10/15/2019 1:05 PM CDT [facility] SPECIAL REQUESTS NO SPECIAL REQUEST 10/15/2019 1:05 PM CDT [facility] STAIN RESULT: NO YEAST OR FUNGAL ELEMENTS SEEN 10/17/2019 4:[address] [facility] CULTURE RESULT NO FUNGUS ISOLATED AFTER 4 WEEKS 11/13/2019 5:[address] [facility] Tissue specimen (specimen) STRUCTURE OF RIGHT KNEE REGION / Unknown 10/15/2019 12:48 PM CDT us Warren Steiner MD MICROBIOLOGY - GENERAL ORDERAB LES Final Result Performing Organization Address [facility] Co de Phone Number [facility] [address] [place] [address], [place] [phone] [facility] [address] [place] [address], [place] [phone] * CULTURE, FUNGUS (10/15/2019 12:52 PM CDT) SPEC DESCRIPTION KNEE,RIGHT: SUPERIOR 10/15/2019 1:05 PM CDT [facility] SPECIAL REQUESTS NO SPECIAL REQUEST 10/15/2019 1:05 PM CDT [facility] STAIN RESULT: NO YEAST OR FUNGAL ELEMENTS SEEN 10/17/2019 4:[address] [facility] CULTURE RESULT NO FUNGUS ISOLATED AFTER 4 WEEKS 11/13/2019 5:[address] [facility] Tissue specimen (specimen) STRUCTURE OF RIGHT KNEE REGION / Unknown 10/15/2019 12:47 PM CDT us Warren Steiner MD MICROBIOLOGY - GENERAL ORDERAB LES Final Result Performing Organization Address [facility] Co de Phone Number [facility] [address] [place] [address], [place] [phone] [facility] [address] [place] [address], [place] [phone] * CULTURE, FUNGUS (10/15/2019 12:52 PM CDT) SPEC DESCRIPTION KNEE,RIGHT: FLUID 10/15/2019 1:05 PM CDT [facility] SPECIAL REQUESTS NO SPECIAL REQUEST 10/15/2019 1:05 PM CDT [facility] STAIN RESULT: NO YEAST OR FUNGAL ELEMENTS SEEN 10/17/2019 4:[address] [facility] CULTURE RESULT NO FUNGUS ISOLATED AFTER 4 WEEKS 11/13/2019 5:[address] [facility] Body fluid specimen (specimen) STRUCTURE OF RIGHT KNEE REGION / Unknown 10/15/2019 12:41 PM CDT Warren Steiner MD MICROBIOLOGY - GENERAL ORDERAB LES Final Result Performing Organization Address [facility]/ZIP Co de Phone Number [facility] [address] [place] [address], [place] [phone] [facility] [address] [place] [phone], * CULTURE, BODY FLUID W/ GRAM STAIN (10/15/2019 12:52 PM CDT) SPEC DESCRIPTION KNEE,RIGHT 10/15/2019 1:05 PM CDT [facility] SPECIAL REQUESTS NO SPECIAL REQUEST 10/15/2019 1:05 PM CDT [facility] GRAM STAIN RESULT NO ORGANISMS SEEN 10/15/2019 3:42 PM CDT [facility] CULTURE RESULT NO GROWTH 5 DAYS 10/21/2019 10:[address] [facility] Body fluid specimen (specimen) STRUCTURE OF RIGHT KNEE REGION / Unknown 10/15/2019 12:41 PM CDT Warren Steiner MD MICROBIOLOGY - GENERAL ORDERAB LES Final Result Performing Organization Address [facility] Co de Phone Number [facility] [address] [place] [address], [place] [phone] [facility] [address] [place] [address], [place] [phone] * CULTURE, ANAEROBIC (10/15/2019 12:52 PM CDT) SPEC DESCRIPTION KNEE,RIGHT 10/15/2019 1:05 PM CDT [facility] SPECIAL REQUESTS NO SPECIAL REQUEST 10/15/2019 1:05 PM CDT [facility] CULTURE RESULT NO ANAEROBES ISOLATED 10/21/2019 10:[address] [facility] Tissue specimen (specimen) STRUCTURE OF RIGHT KNEE REGION / Unknown 10/15/2019 12:52 PM CDT Warren Stiener MD MICROBIOLOGY - GENERAL ORDERAB LES Final Result Performing Organization Address [facility] Co de Phone Number [facility] [address] [place] [address], [place] [phone] [facility] [address] [place] [phone], * CULTURE, ANAEROBIC (10/15/2019 12:52 PM CDT) SPEC DESCRIPTION KNEE,RIGHT 10/15/2019 1:05 PM CDT [facility] SPECIAL REQUESTS NO SPECIAL REQUEST 10/15/2019 1:05 PM CDT [facility] CULTURE RESULT NO ANAEROBES ISOLATED 10/21/2019 10:[address] [facility] Tissue specimen (specimen) STRUCTURE OF RIGHT KNEE REGION / Unknown 10/15/2019 12:48 PM CDT us Warren Steiner MD MICROBIOLOGY - GENERAL ORDERAB LES Final Result Performing Organization Address [facility] Co de Phone Number [facility] [address] [place] [address], [place] [phone] [facility] [address] [place] [address], [place] [phone] * CULTURE, ANAEROBIC (10/15/2019 12:52 PM CDT) SPEC DESCRIPTION KNEE,RIGHT 10/15/2019 1:05 PM CDT [facility] SPECIAL REQUESTS NO SPECIAL REQUEST 10/15/2019 1:05 PM CDT [facility] CULTURE RESULT NO ANAEROBES ISOLATED 10/21/2019 10:[address] [facility] Tissue specimen (specimen) STRUCTURE OF RIGHT KNEE REGION / Unknown 10/15/2019 12:47 PM CDT us Warren Steiner MD MICROBIOLOGY - GENERAL ORDERAB LES Final Result Performing Organization Address [facility] de Phone Number [facility] [address] [place] [address], [phone] [facility] [address] [place] [phone], * CULTURE, ANAEROBIC (10/15/2019 12:52 PM CDT) SPEC DESCRIPTION KNEE,RIGHT 10/15/2019 1:05 PM CDT [facility] SPECIAL REQUESTS NO SPECIAL REQUEST 10/15/2019 1:05 PM CDT [facility] CULTURE RESULT NO ANAEROBES ISOLATED 10/20/2019 6:[address] [facility] Body fluid specimen (specimen) STRUCTURE OF RIGHT KNEE REGION / Unknown 10/15/2019 12:41 PM CDT us Warren Steiner MD MICROBIOLOGY - GENERAL ORDERAB LES Final Result Performing Organization Address [facility] de Phone Number [facility] [address] [place] [address], [phone] [facility] [address] [place] [phone], * CULTURE, TISSUE W/GRAM STAIN (10/15/2019 12:44 PM CDT) SPEC DESCRIPTION KNEE,RIGHT 10/15/2019 2:06 PM CDT [facility] SPECIAL REQUESTS NO SPECIAL REQUEST 10/15/2019 2:06 PM CDT [facility] GRAM STAIN RESULT NO ORGANISMS SEEN 10/15/2019 3:43 PM CDT [facility] CULTURE RESULT NO GROWTH 5 DAYS 10/21/2019 10:[address] [facility] Tissue specimen (specimen) STRUCTURE OF RIGHT KNEE REGION / Unknown 10/15/2019 12:44 PM CDT us Warren Steiner MD MICROBIOLOGY - GENERAL ORDERAB LES Final Result Performing Organization Address [facility] Co de Phone Number [facility] [address] [place] [address], [place] [phone] [facility] [address] [place] [address], [place] [phone] * CULTURE, FUNGUS (10/15/2019 12:44 PM CDT) SPEC DESCRIPTION KNEE,RIGHT: LATERAL 10/15/2019 2:06 PM CDT [facility] SPECIAL REQUESTS NO SPECIAL REQUEST 10/15/2019 2:06 PM CDT [facility] STAIN RESULT: NO YEAST OR FUNGAL ELEMENTS SEEN 10/17/2019 4:[address] [facility] CULTURE RESULT NO FUNGUS ISOLATED AFTER 4 WEEKS 11/13/2019 5:[address] [facility] Tissue specimen (specimen) STRUCTURE OF RIGHT KNEE REGION / Unknown 10/15/2019 12:44 PM CDT us Warren Steiner MD MICROBIOLOGY - GENERAL ORDERAB LES Final Result Performing Organization Address [facility] Co de Phone Number [facility] [address] [place] [address], [place] [phone] [facility] [address] [place] [address], [place] [phone] * CULTURE, ANAEROBIC (10/15/2019 12:44 PM CDT) SPEC DESCRIPTION KNEE,RIGHT 10/15/2019 2:06 PM CDT [facility] SPECIAL REQUESTS NO SPECIAL REQUEST 10/15/2019 2:06 PM CDT [facility] CULTURE RESULT NO ANAEROBES ISOLATED 10/21/2019 10:[address] [facility] Tissue specimen (specimen) STRUCTURE OF RIGHT KNEE REGION / Unknown 10/15/2019 12:44 PM CDT us Warren Steiner MD MICROBIOLOGY - GENERAL ORDERAB LES Final Result [facility] [address] [place] [address], [place] [phone] [facility] [address] [place] [address], [place] [phone] documented in this encounter Visit Diagnoses Not on filedocumented in this encounter Administered Medications Inactive Administered Medications - up to 3 most recent administrations Medication Order MAR Action Action Date Dose Rate Site amitriptyline (ELAVIL) tablet 50 mg 50 mg, Oral, Nightly at bedtime, First dose on Tue10/15/19 at 2100, Until Discontinued Given 10/17/2019 8:36 PM CDT 50 mg Given 10/16/2019 8:22 PM CDT 50 mg Given 10/15/2019 9:41 PM CDT 50 mg atorvastatin (LIPITOR) tablet 40 mg 40 mg, Oral, Nightly at bedtime, First dose on Tue10/15/19 at 2100, Until Discontinued Given 10/17/2019 8:36 PM CDT 40 m g Given 10/16/2019 8:22 PM CDT 40 mg Given 10/15/2019 9:41 PM CDT 40 mg dabigatran (PRADAXA) capsule 150 mg 150 mg, Oral, 2 times daily, First dose on Tue10/16/19 at 0900, Until Discontinued Given 10/18/2019 8:03 AM CDT 150 mg Given 10/17/2019 8:36 PM CDT 150 mg Given 10/17/2019 7:58 AM CDT 150 mg diazePAM (VALIUM) tablet 5 mg 5 mg, Oral, Every 6 hours PRN, Muscle Spasms, Starting on Tue10/17/19 at 1830, Until Tue10/18/19 at 1421 Given 10/17/2019 11:44 PM CDT 5 mg diphenhydrAMINE (BENADRYL) 12.5 MG/5ML elixir 25 mg 25 mg, Oral, Every 6 hours PRN, Itching, Starting on Tue10/15/19 at 1643, Until Vika 10/18/19 at 1421, Give if unable to swallow tablets/capsules or if patient prefers liquid., Post-Op diphenhydrAMINE (BENADRYL) capsule 25 mg 25 mg, Oral, Every 6 hours PRN, Itching, Starting on Tue10/15/19 at 1643, Until Vika 10/18/19 at 1421, Post-Op Given 10/15/2019 9:41 PM CDT 25 mg Given 10/15/2019 5:24 PM CDT 25 mg diphenhydrAMINE (BENADRYL) injection 25 mg 25 mg, Intravenous, Every 6 hours PRN, Itching, Starting on Tue10/15/19 at 1643, Until Vika 10/18/19 at 1421, Give if unable to take PO. For IV administration, give no faster than 25 mg/min., Post-Op docusate sodium (COLACE) capsule 100 mg 100 mg, Oral, Daily, First dose on Tue10/15/19 at 1700, Until Discontinued, Post-Op Given 10/18/2019 8:02 AM CDT 100 mg Given 10/17/2019 7:57 AM CDT 100 mg Given 10/16/2019 8:25 AM CDT 100 mg famotidine (PEPCID) tablet 40 mg 40 mg, Oral, 2 times daily, First dose on Tue10/15/19 at 2100, Until Discontinued Given 10/18/2019 8:02 AM CDT 40 mg Given 10/17/2019 8:36 PM CDT 40 mg Given 10/17/2019 7:57 AM CDT 40 mg furosemide (LASIX) tablet 20 mg 20 mg, Oral, Daily, First dose on Tue10/15/19 at 1700, Until Discontinued Given 10/18/2019 8:03 AM CDT 20 mg Given 10/17/2019 7:57 AM CDT 20 mg Given 10/16/2019 8:25 AM CDT 20 mg gabapentin (NEURONTIN) capsule 300 mg 300 mg, Oral, 3 times daily, First dose on Tue10/15/19 at 1700, Until Discontinued Given 10/18/2019 8:02 AM CDT 300 mg Given 10/17/2019 8:36 PM CDT 300 mg Given 10/17/2019 4:07 PM CDT 300 mg HYDROcodone-acetaminophen (NORCO) 5-325 MG tablet 1 tablet 1 tablet, Oral, Every 4 hours PRN, Mild pain (Scale 1 - 3), Starting on Tue10/15/19 at 1643, Until Vika 10/18/19 at 1421, Maximum dose of acetaminophen is 4000 mg from all sources in 24 hours., Post-Op Given 10/16/2019 3:19 AM CDT 1 tablet Given 10/15/2019 10:04 PM CDT 1 tablet insulin glargine (LANTUS) injection 32 Units 32 Units, Subcutaneous, Nightly at bedtime, First dose on Tue10/15/19 at 2100, Until Discontinued, AUTO-SUB FOR LEVEMIR Given 10/17/2019 8:35 PM CDT 32 Units Left Arm Given 10/16/2019 8:22 PM CDT 32 Units Ri ght Arm Given 10/15/2019 9:41 PM CDT 32 Units Ri ght Arm insulin lispro (HUMALOG) injection 32 Units 32 Units, Subcutaneous, 3 times daily with meals, First dose on Tue10/15/19 at 1800, Until Discontinued, For sliding scale, activate Sliding Scale Insulin order set Given 10/16/2019 11:44 AM CDT 32 Units Left Arm Given 10/16/2019 8:26 AM CDT 32 Units Le ft Arm Given 10/15/2019 5:49 PM CDT 32 Units Le ft Lower Abdomen isosorbide mononitrate ER (IMDUR) 24 hr tablet 30 mg 30 mg, Oral, Daily, First dose on Tue10/15/19 at 1700, Until Discontinued, May be split in half along the tablet score line; do not chew or crush. Given 10/18/2019 8:03 AM CDT 30 mg Given 10/17/2019 7:58 AM CDT 30 mg Given 10/16/2019 8:25 AM CDT 30 mg metFORMIN (GLUCOPHAGE) tablet 850 mg 850 mg, Oral, 3 times daily with meals, First dose on Tue10/15/19 at 1700, Until Discontinued Given 10/18/2019 11:23 AM CDT 850 mg Given 10/18/2019 8:02 AM CDT 850 mg Given 10/17/2019 4:07 PM CDT 850 mg metoprolol succinate ER (TOPROL-XL) 24 hr tablet 50 mg 50 mg, Oral, Daily, First dose on Tue10/15/19 at 1700, Until Discontinued, May be split in half along the tablet score line; do not chew or crush. Given 10/18/2019 8:02 AM CDT 50 mg Given 10/17/2019 7:57 AM CDT 50 mg Given 10/16/2019 8:25 AM CDT 50 mg morphine injection 4 mg 4 mg, Intravenous, Every 2 hours PRN, Severe pain (Scale 8 - 10), Starting on Tue10/16/19 at 1427, Until Vika 10/18/19 at 1421 Given 10/16/2019 10:22 PM CDT 4 mg Given 10/16/2019 2:54 PM CDT 4 mg ondansetron (ZOFRAN) injection 4 mg 4 mg, Intravenous, Every 8 hours PRN, Nausea, Vomiting, Starting on Tue10/15/19 at 1643, Until Vika 10/18/19 at 1421, IV push over 2-5 minutes., Post-Op Given 10/15/2019 9:41 PM CDT 4 mg oxyCODONE ER (OxyCONTIN) 12 hr abuse-deterrent tablet 10 mg 10 mg, Oral, Every 12 hours scheduled (2 times per day), First dose on Tue10/17/19 at 0900, Until Discontinued, Do not break, chew, or crush. Given 10/18/2019 8:02 AM CDT 10 mg Given 10/17/2019 8:36 PM CDT 10 mg Given 10/17/2019 8:09 AM CDT 10 mg oxyCODONE-acetaminophen (PERCOCET) 10-325 MG tablet 1 tablet 1 tablet, Oral, Every 4 hours PRN, Moderate pain (Scale 4 - 7), Severe pain (Scale 8 - 10), Starting on Tue10/16/19 at 1427, Until Vika 10/18/19 at 1421, Maximum dose of acetaminophen is 4000 mg from all sources in 24 hours. Given 10/18/2019 10:00 AM CDT 1 tablet Given 10/18/2019 6:06 AM CDT 1 tablet Given 10/17/2019 11:44 PM CDT 1 tablet sodium chloride 0.9 % 3,000 mL with gentamicin 320 mg irrigation As needed, Starting on Tue10/15/19 at 1039, Until Tue10/15/19 at 1537, Intra-Op Given 10/15/2019 10:39 AM CDT 3,000 mLs Right Knee spironolactone (ALDACTONE) tablet 25 mg 25 mg, Oral, Daily, First dose on Tue10/15/19 at 1700, Until Discontinued Given 10/18/2019 8:03 AM CDT 25 mg Given 10/17/2019 7:57 AM CDT 25 mg Given 10/16/2019 8:25 AM CDT 25 mg tamsulosin (FLOMAX) capsule 0.4 mg 0.4 mg, Oral, Daily, First dose on Tue10/15/19 at 1700, Until Discontinued Given 10/18/2019 8:03 AM CDT 0.4 mg Given 10/17/2019 7:58 AM CDT 0.4 mg Given 10/16/2019 8:25 AM CDT 0.4 mg documented in this encounter Active and Recently Administered Medications Times are shown in CDT. Scheduled Medication Order 10/16/2019 10/17/2019 10/18/2019 amitriptyline (ELAVIL) tablet 50 mg 50 mg, Oral, Nightly at bedtime, First dose on Tue10/15/19 at 2100, Until Discontinued 2021 (Given - Provider: Mau Jackson) 2035 (Given - Provider: Meme Sanders, [place]) atorvastatin (LIPITOR) tablet 40 mg 40 mg, Oral, Nightly at bedtime, First dose on Tue10/15/19 at 2100, Until Discontinued 2021 (Given - Provider: Mau Jackson) 2035 (Given - Provider: Meme Sanders, [place]) ceFAZolin (ANCEF) 2 g in NS 100 mL IVPB (COMPLETED)(Linked Group 1) 2 g, Intravenous, at 200 mL/hr, Every 8 hours, 2 doses, First dose on Tue10/15/19 at 2000, Last dose on Tue10/16/19 at 0400, Give 2 gram dose for patients less than 120 kg. PHARMACY TO ADJUST administration times based on pre-op/intra-op dose. Do NOT continue greater than 24 hours after anesthesia end time., Post-Op 0319 (New Bag - Provider: Mau Jackson)1231 (Infusion Stop Time - Provider: Mau Jackson) dabigatran (PRADAXA) capsule 150 mg 150 mg, Oral, 2 times daily, First dose on Tue10/16/19 at 0900, Until Discontinued 824 (Given - Provider: Ashley Delgado RN)2021 (Given - Provider: Mau Jackson) 075 (Given - Provider: Ashley Delgado RN)2035 (Given - Provider: Meme Sanders RN) 08 (Given - Provider: Kimberly Orozco RN) docusate sodium (COLACE) capsule 100 mg 100 mg, Oral, Daily, First dose on Tue10/15/19 at 1700, Until Discontinued, Post-Op 824 (Given - Provider: Ashley Delgado RN) 075 (Given - Provider: Ashley Delgado RN) 08 (Given - Provider: Kimberly Orozco RN) famotidine (PEPCID) tablet 40 mg 40 mg, Oral, 2 times daily, First dose on Tue10/15/19 at 2100, Until Discontinued 824 (Given - Provider: Ashley Delgado RN)2021 (Given - Provider: Mau Jackson) 075 (Given - Provider: Ashley Delgado RN)2035 (Given - Provider: Meme Sanders RN) 08 (Given - Provider: Kimberly Orozco RN) furosemide (LASIX) tablet 20 mg 20 mg, Oral, Daily, First dose on Tue10/15/19 at 1700, Until Discontinued 824 (Given - Provider: Ashley Delgado RN) 075 (Given - Provider: Ashley Delgado RN) 08 (Given - Provider: Kimberly Orozco RN) gabapentin (NEURONTIN) capsule 300 mg 300 mg, Oral, 3 times daily, First dose on Tue10/15/19 at 1700, Until Discontinued 824 (Given - Provider: Ashley Delgado RN)160 (Given - Provider: Ashley Delgado RN)2021 (Given - Provider: Mau Jackson) 075 (Given - Provider: Ashley Delgado RN)1607 (Given - Provider: Ashley Delgado RN)2035 (Given - Provider: Meme Sanders RN) 08 (Given - Provider: Kimbrely Orozco RN) insulin glargine (LANTUS) injection 32 Units 32 Units, Subcutaneous, Nightly at bedtime, First dose on Tue10/15/19 at 2100, Until Discontinued, AUTO-SUB FOR LEVEMIR 2021 (Given - Provider: Mau Jackson) 2034 (Given - Provider: Meme Sanders RN) insulin lispro (HUMALOG) injection 32 Units 32 Units, Subcutaneous, 3 times daily with meals, First dose on Tue10/15/19 at 1800, Until Discontinued, For sliding scale, activate Sliding Scale Insulin order set 0826 (Given - Provider: Ashley Delgado RN)1144 (Given - Provider: Ashley Delgado RN)1610 (Not Given - Provider: Ashley Delgado RN - Reason: Order parameters not met) 0758 (Not Given - Provider: Ashley Delgado RN - Reason: Other - Comment: Patient not feeling well, does not want to eat breakfast)1105 (Not Given - Provider: Ashley Delgado RN - Reason: Order parameters not met)1620 (Not Given - Provider: Ashley Delgado RN - Reason: Order parameters not met) 0805 (Not Given - Provider: Kimberly Orozco RN - Reason: Patient/family declined)1118 (Not Given - Provider: Kimberly Orozco RN - Reason: Patient/family declined) isosorbide mononitrate ER (IMDUR) 24 hr tablet 30 mg 30 mg, Oral, Daily, First dose on Tue10/15/19 at 1700, Until Discontinued, May be split in half along the tablet score line; do not chew or crush. 0825 (Given - Provider: Ashley Delgado RN) 0758 (Given - Provider: Ashley Delgado RN) 0803 (Given - Provider: Kimberly Orozco RN) metFORMIN (GLUCOPHAGE) tablet 850 mg 850 mg, Oral, 3 times daily with meals, First dose on Tue10/15/19 at 1700, Until Discontinued 0825 (Given - Provider: Ashley Delgado RN)1144 (Given - Provider: Ashley Delgado RN)1609 (Given - Provider: Ashley Delgado RN) 075 (Given - Provider: Ashley Delgado RN)115 (Given - Provider: Ashley Delgado RN)160 (Given - Provider: Ashley Delgado RN) 08 (Given - Provider: Kimberly Orozco RN)112 (Given - Provider: Kimberly Orozco RN) metoprolol succinate ER (TOPROL-XL) 24 hr tablet 50 mg 50 mg, Oral, Daily, First dose on Tue10/15/19 at 1700, Until Discontinued, May be split in half along the tablet score line; do not chew or crush. 08 (Given - Provider: Ashley Delgado RN) 075 (Given - Provider: Ashley Delgado RN) 08 (Given - Provider: Kimberly Orozco RN) ondansetron (ZOFRAN-ODT) disintegrating tablet 4 mg (COMPLETED) 4 mg, Oral, Once, 1 dose, On Tue10/18/19 at 1100 1044 (Given - Provider: Kimberly Orozco RN) oxyCODONE ER (OxyCONTIN) 12 hr abuse-deterrent tablet 10 mg 10 mg, Oral, Every 12 hours scheduled (2 times per day), First dose on Tue10/17/19 at 0900, Until Discontinued, Do not break, chew, or crush. 08 (Given - Provider: Ashley Delgado RN)2035 (Given - Provider: Meme Sanders RN) 08 (Given - Provider: Kimberly Orozco RN) spironolactone (ALDACTONE) tablet 25 mg 25 mg, Oral, Daily, First dose on Tue10/15/19 at 1700, Until Discontinued 08 (Given - Provider: Ashley Delgado RN) 075 (Given - Provider: Ashley Delgado RN) 0803 (Given - Provider: Kimberly Orozco RN) tamsulosin (FLOMAX) capsule 0.4 mg 0.4 mg, Oral, Daily, First dose on Tue10/15/19 at 1700, Until Discontinued 0825 (Given - Provider: Ashley Delgado RN) 0758 (Given - Provider: Ashley Delgado RN) 0803 (Given - Provider: Kimberly Orozco RN) Continuous Medication Order 10/16/2019 10/17/2019 10/18/2019 lactated ringers infusion (CANCELED) at 75 mL/hr, Intravenous, Continuous, Starting on Tue10/15/19 at 1700, Until Tue10/16/19 at 0830, May discontinue IV Fluid when adequate oral intake, Post-Op 310 (Infusion Stop Time - Provider: Mau [place])311 (New Bag - Provider: Mau [place]) PRN Medication Order 10/16/2019 10/17/2019 10/18/2019 bisacodyl EC (DULCOLAX) tablet 5 mg 5 mg, Oral, Daily as needed, Constipation, Starting on Tue10/15/19 at 1643, Until Vika 10/18/19 at 1421, Do not break, chew, or crush., Post-Op diazePAM (VALIUM) tablet 5 mg 5 mg, Oral, Every 6 hours PRN, Muscle Spasms, Starting on Tue10/17/19 at 1830, Until Vika 10/18/19 at 1421 2344 (Given - Provider: Meme Sanders RN) diphenhydrAMINE (BENADRYL) 12.5 MG/5ML elixir 25 mg(Linked Group 2) 25 mg, Oral, Every 6 hours PRN, Itching, Starting on Tue10/15/19 at 1643, Until Vika 10/18/19 at 1421, Give if unable to swallow tablets/capsules or if patient prefers liquid., Post-Op diphenhydrAMINE (BENADRYL) capsule 25 mg(Linked Group 2) 25 mg, Oral, Every 6 hours PRN, Itching, Starting on Tue10/15/19 at 1643, Until Vika 10/18/19 at 1421, Post-Op diphenhydrAMINE (BENADRYL) injection 25 mg(Linked Group 2) 25 mg, Intravenous, Every 6 hours PRN, Itching, Starting on Tue10/15/19 at 1643, Until Tue10/18/19 at 1421, Give if unable to take PO. For IV administration, give no faster than 25 mg/min., Post-Op HYDROcodone-acetaminophe n (NORCO) 10-325 MG tablet 1 tablet (CANCELED) 1 tablet, Oral, Every 4 hours PRN, Moderate pain (Scale 4 - 7), Starting on Tue10/15/19 at 1643, Until Tue10/16/19 at 1428, Maximum dose of acetaminophen is 4000 mg from all sources in 24 hours., Post-Op 08 (Given - Provider: Ashley Deglado RN)121 (Given - Provider: Ashley Delgado RN) HYDROcodone-acetaminophe n (NORCO) 5-325 MG tablet 1 tablet 1 tablet, Oral, Every 4 hours PRN, Mild pain (Scale 1 - 3), Starting on Tue10/15/19 at 1643, Until Tue10/18/19 at 1421, Maximum dose of acetaminophen is 4000 mg from all sources in 24 hours., Post-Op 031 (Given - Provider: Mau [place]) HYDROcodone-acetaminophe n (NORCO) 5-325 MG tablet 1 tablet 1 tablet, Oral, Every 4 hours PRN, Other, Anticipatory pain, Starting on Tue10/15/19 at 1643, Until Tue10/18/19 at 1421, Administer 30 minutes prior to physical/occupational therapy if needed for anticipatory pain, Post-Op morphine injection 4 mg 4 mg, Intravenous, Every 2 hours PRN, Severe pain (Scale 8 - 10), Starting on Tue10/16/19 at 1427, Until Tue10/18/19 at 1421 1454 (Given - Provider: Sarah Lucas RN)2222 (Given - Provider: Mau [place]) nitroglycerin (NITROSTAT) SL tablet 0.4 mg 0.4 mg, Sublingual, Every 5 min PRN, Chest Pain, Starting on Tue10/15/19 at 1643, Until Vika 10/18/19 at 1421 ondansetron (ZOFRAN) injection 4 mg 4 mg, Intravenous, Every 8 hours PRN, Nausea, Vomiting, Starting on Tue10/15/19 at 1643, Until Vika 10/18/19 at 1421, IV push over 2-5 minutes., Post-Op oxyCODONE-acetaminophen (PERCOCET) 10-325 MG tablet 1 tablet 1 tablet, Oral, Every 4 hours PRN, Moderate pain (Scale 4 - 7), Severe pain (Scale 8 - 10), Starting on Tue10/16/19 at 1427, Until Tue10/18/19 at 1421, Maximum dose of acetaminophen is 4000 mg from all sources in 24 hours. 1609 (Given - Provider: Ashley Delgado RN)2022 (Given - Provider: Mau [place]) 0222 (Given - Provider: Mau [place])0757 (Given - Provider: Ashley Delgado RN)1156 (Given - Provider: Ashley Delgado RN)1607 (Given - Provider: Ashley Delgado RN)2344 (Given - Provider: Meme Sanders RN) 0606 (Given - Provider: Meme Sanders RN)1000 (Given - Provider: Kimberly Orozco RN) polyethylene glycol (GLYCOLAX) packet 17 g 17 g, Oral, Daily as needed, Constipation, Starting on Tue10/15/19 at 1643, Until Tue10/18/19 at 1421, Post-Op Senna (SENOKOT) 8.6 MG tablet 8.6 mg 8.6 mg, Oral, Daily as needed, Constipation, Starting on Tue10/15/19 at 1643, Until Tue10/18/19 at 1421, Post-Op traMADol (ULTRAM) tablet 50 mg 50 mg, Oral, Every 6 hours PRN, Mild pain (Scale 1 - 3), Starting on Tue10/15/19 at 1643, Until Vika 10/18/19 at 1421 Linked Groups Order Group 1: ceFAZolin (ANCEF) 2 g in NS 100 mL IVPB (COMPLETED)Jump to med 2 g, Intravenous, at 200 mL/hr, Every 8 hours, 2 doses, First dose on Tue10/15/19 at 2000, Last dose on Tue10/16/19 at 0400, Give 2 gram dose for patients less than 120 kg. PHARMACY TO ADJUST administration times based on pre-op/intra-op dose. Do NOT continue greater than 24 hours after anesthesia end time., Post-Op Or ceFAZolin (ANCEF) 3 g in NS 100 mL IVPB (CANCELED) 3 g, Intravenous, at 200 mL/hr, Every 8 hours, 2 doses, First dose on Tue10/15/19 at 1700, Last dose on Tue10/16/19 at 0100, Give 3 gram dose for patients 120 kg and greater. PHARMACY TO ADJUST administration times based on pre-op/intra-op dose. Do NOT continue greater than 24 hours after anesthesia end time., Post-Op Group 2: diphenhydrAMINE (BENADRYL) injection 25 mgJump to med 25 mg, Intravenous, Every 6 hours PRN, Itching, Starting on Tue10/15/19 at 1643, Until Vika 10/18/19 at 1421, Give if unable to take PO. For IV administration, give no faster than 25 mg/min., Post-Op Or diphenhydrAMINE (BENADRYL) capsule 25 mgJump to med 25 mg, Oral, Every 6 hours PRN, Itching, Starting on Tue10/15/19 at 1643, Until Vika 10/18/19 at 1421, Post-Op Or diphenhydrAMINE (BENADRYL) 12.5 MG/5ML elixir 25 mgJump to med 25 mg, Oral, Every 6 hours PRN, Itching, Starting on Tue10/15/19 at 1643, Until Vika 10/18/19 at 1421, Give if unable to swallow tablets/capsules or if patient prefers liquid., Post-Op documented in this encounter Care Teams Financial Coach Relationship Specialty Start Date End Date [place] [place] [phone] PCP - General FAMILY PRACTICE 10/27/15 12/02/21 E[place] [address] [phone] [place] [employer] CARDIOVASCULAR DISEASE 08/19/16 Raul [place] [phone] CLINICAL CARDIAC ELECTROPHYSIOLOGY 06/16/17 Warren Steiner MD [address] [place] [address] ORTHOPAEDIC SURGERY 05/01/19 documented as of this encounter
--- OUTSIDE RECORDS SUMMARY | 2024-04-23 04:28 | XMS_ITS | Encounter Summary ---
Author Organization [facility] Address [address] [place] [address]. [place], [place] [id number] [place] [id number] Care Team Providers Care Reliability Engineer Name Role Phone Vernon Merecdes MD Primary Care Provider [phone] Evaristo Allan MD Unavailable Unavailabl e Raul Santana MD Unavailable Unavailabl e Danny Blackwell MD Unavailable [phone] Reason for Visit * Reason Onset Date Comments Surgical Clearance 09/24/2019 Dr. Allan Encounter Details Date Type Department Care Team (Late st Contact Info) Description 09/24/2019 Telephone [facility] [address], [place] [id number] Kady Vann datastage consultant Clearance (Dr. 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 No / Unsure 09/21/2019 10:49 AM CDT documented as of this encounter Progress Notes * Kady Vann RN - 09/27/2019 1:11 PM CDT Patient aware of cardiology appointment and bacitracin application prior to surgery. He verbalizes understanding and denies any questions. He is aware to stop into office on 10/07 to check knee abrasion. documented in this encounter Plan of Treatment Upcoming Encounters Date Type Department Care Team (Late st Contact Info) Description 04/25/2024 11:00 AM WR[facility]PER [facility] Appoint[facility] [address] [address] Ti Bonilla MD [address] [place] [phone] 05/23/2024 3:30 PM WRAPPER CASER Office Visit [facility] [address] [place] [phone] Jyoti Escobar MD [address] [place] [phone] documented as of this encounter Visit Diagnoses Not on filedocumented in this encounter Additional Health Concerns Infection Onset Date Last Indicated Resolved Time MRSA Comment:Negative MRSA 05/201903/11/2017 03/11/2017 10/03/2019 10:08 AM CDT documented as of this encounter Care Teams Reliability Engineer Relationship Specialty Start Date End Date Vernon Mercedes MD [facility] [place] [address] PCP - General FAMILY PRACTICE 10/27/15 12/02/21 Evaristo Allan MD [address] [place] [address] [place] [employer] Assistant Manager CARDIOVASCULAR DISEASE 08/19/16 Raul Santana MD [address] [place] [address] CLINICAL CARDIAC ELECTROPHYSIOLOGY 06/16/17 Danny Blackwell MD [address] [place] [id number] ORTHOPAEDIC SURGERY 05/01/19 documented as of this encounter
--- OUTSIDE RECORDS SUMMARY | 2024-04-23 04:28 | XMS_ITS | Encounter Summary ---
Author Organization [facility] Address [address] [place] [address]. [place], [place] [id number] [place] [address] Care Team Providers Care Personalized Living Manager Name Role Phone Ton Mercedes MD Primary Care Provider [phone] Evaristo Allan MD Unavailable Unavailabl e Raul Santana MD Unavailable Unavailabl e Danny Steiner MD Unavailable [phone] Reason for Referral * (Routine) - Canceled Specialty Diagnoses / Procedures Referred By Contac t Referred To Contact Procedures OT eval and Danny Meneses MD [address] [place] [address] Phone: tel: fax: Referral ID Status Reason Start Date Expiration Date V isits Requested Visits Authorized [id number] Canceled 10/15/2019 11/13/2020 1 1 * (Routine) - Canceled Specialty Diagnoses / Procedures Referred By Contac t Referred To Contact Procedures PT evDanny Lowery MD [address] [place] [address] Phone: tel: fax: Referral ID Status Reason Start Date Expiration Date V isits Requested Visits Authorized [id number] Canceled 10/15/2019 11/13/2020 1 1 Reason for Visit * Auth/Cert Specialty Diagnoses / Procedures Referred By Contac t Referred To Contact Diagnoses T84.018A Procedures Revision RIGHT Total Knee ArthroplastyNate notifiedInpatient Referral ID Status Reason Start Date Expiration Date Visits Re quested Visits Authorized [id number] 1 1 Encounter Details Date Type Department Care Team (Latest Contact Info) Description 10/15/2019 10:18 AM CDT - 10/18/2019 12:18 PM CDT Hospital Encounter [facility] [address] [place] [address] Danny Steiner MD [address] [place] [address] Discharge Disposition: Home or Self Care (Routine [...] 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 No / Unsure 10/15/2019 10:18 AM CDT documented as of this encounter Last Filed Vital Signs Vital Sign Reading Time Taken Comments Blood Pressure 143/80 10/18/2019 4:52 AM CDT Pulse 113 10/18/2019 4:52 AM CDT Temperature 36.7 ??C (98.1 ??F) 10/18/2019 4:52 AM CD T Respiratory Rate 18 10/18/2019 4:52 AM CDT Oxygen Saturation 95% 10/18/2019 4:52 AM CDT Inhaled Oxygen Concentration - - Weight 114.3 kg (252 lb) 10/16/2019 7:30 AM CDT Height 177.8 cm (5' 10 ) 10/16/2019 7:30 AM CDT Body Mass Index 36.16 10/16/2019 7:30 AM CDT documented in this encounter Functional Status * Question Answer Date of Assessment Author Status Do you have serious difficulty walking or climbing stairs? Yes 10/15/2019 4:47 PM MIKKIT Kaylyn Cohen RN Ac tive * Question Answer Date of Assessment Author Status Do you have difficulty dressing or bathing? No 10/15/2019 4:47 PM CDT Kaylyn Cohen R N Active Because of a physical, mental, or emotional condition, do you have difficulty doing errands alone such as visiting a doctor's office or shopping? No 10/15/2019 4:47 PM Kaylyn Rodriguez RN Act ady * RETIRED Are you deaf or do [...] or making decisions? No 10/15/2019 4:47 PM CDKaylyn Morales R N Active * Because of a physical, mental, or emotional condition, do you have serious difficulty concentrating, remembering, or making decisions? 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 Status post revision of total replacement of right knee 10/16/2019 ??? 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 S/P coronary artery stent placement 05/01/2019 ??? Failure of total knee replacement, initial encounter ([facility]) 04/27/2019 ??? 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 Cardiovascular stress test abnormal 03/06/2018 ??? Coronary artery disease 02/13/2018 ??? Diabetes ([facility]) 02/10/2018 ??? Mechanical complication of internal orthopedic device, implant or graft, initial encounter ([facility]) 11/01/2016 ??? Hyperlipidemia 08/14/2016 ??? Pes anserine bursitis 03/09/2016 ??? 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 Obstructive sleep apnea 10/29/2015 ??? Essential hypertension 10/24/2015 has had elevated B/P readings ??? Paroxysmal atrial fibrillation ([facility]) 10/24/2015 ??? Arthritis of knee 11/25/2014 ??? [...] HYDROcodone-acetaminophen 5-325 MG tablet Commonly known as: Vandiver traMADol 50 MG tablet Commonly known as: ULTRAM Where to Get Your Medications These medications were sent to [address] [address] ?? oxyCODONE ER 10 MG 12 hr abuse-deterrent tablet ?? oxyCODONE-acetaminophen 5-325 MG tablet Signed ISAURO DEE Cosigned by Danny Steiner MD at 10/19/2019 1:06 PM CDT documented in this encounter Discharge Instructions * Attachments The following attachments cannot be sent through Care Everywhere. * Total Knee Replacement Discharge Instructions (Kyrgyz) documented in this encounter Medications at Time [...] this encounter Progress Notes * Long Dotson, CANDLEMAKER - 10/18/2019 12:18 PM CDT 10/18/19 0953 [...] discharge needs. Will do outpatient therapy at [facility]. * Kimberly Orozco RN - 10/18/2019 8:54 AM CDT Dc today * Meme Sanders RN - 10/17/2019 9:20 PM CDT Reviewed with pt pain meds are prn and she needs to let us know when she needs them * Keiry Naranjo PTA - 10/17/2019 4:35 PM CDT 10/17/19 1416 [...] MICHAELA Pierce - 10/17/2019 11:20 AM CDT 10/17/19730 Therapy Visit Reason for admission R TKA Revision Ordering Provider Dr. Steiner Verified Two Patient Identifiers Yes Patient consents to therapy Yes Acute Inpatient OT Time Calculation OT Start Time 730 OT Stop Time 0754 OT Time Calculation [...] Naranjo PTA - 10/17/2019 8:21 AM CDT 10/17/19714 Therapy Visit Ordering Provider Dr. Steiner Subjective Patient is supine in the bed upon arrival. CPM is on. Patient reports he is doing alright this morning however his knee cap really hurts. Reason for admission R TKA Revision Verified Two Patient Identifiers Yes Patient consents to therapy Yes Acute Inpatient PT Time Calculation PT Start Time 714 PT Stop Time 0745 PT Time Calculation [...] improvement and safe return home. * Dari Piña TAX COMMISSIONER-BC - 10/17/2019 7:39 AM CDT Daily Progress [...] hypertension ??? Paroxysmal atrial fibrillation (CMS/HCC) ??? 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 Obstructive sleep apnea ??? Hyperlipidemia ??? Diabetes (CMS/HCC) ??? Coronary artery disease ??? 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 Cardiovascular stress test abnormal ??? Arthritis of knee ??? Derangement of medial meniscus, left ??? Encounter for follow-up examination after completed treatment for conditions other than malignant neoplasm ??? Heartburn ??? Knee pain ??? Mechanical complication of internal orthopedic device, implant or graft, initial encounter ([facility]) ??? Patella-femoral syndrome ??? Pes anserine bursitis ??? Recurrent ventral incisional hernia ??? Abdominal pain ??? Failure of total knee replacement, initial encounter ([facility]) ??? S/P coronary artery stent placement ??? Prosthetic knee implant failure ([facility]) ??? Status post revision of [...] control. Signed ISAURO DEE 10/17/2019 Cosigned by Danny Steiner MD at 10/17/2019 8:11 AM CDT * Mau Jackson - 10/16/2019 9:46 PM CDT Patient has not been able to have an acceptable level of pain post op. He is requiring pain medications every 4 hours. Ambulation has made the pain worse for the patient. Educated patient that ambulation will help fpc. Will continue to monitor throughout shift. 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 CARDIAC CATHETERIZATION 11/13/2018 ??? FRACTURE SURGERY ??? HERNIA REPAIR ??? KNEE ARTHROPLASTY Bilateral ??? LITHOTRIPSY ??? XA ABLATION 05/19/2016 ??? 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 Pt is currently demonstrating decreased ability to complete ADLs and functional mobility. Pt will benefit from participation in skilled OT services to improve independence with adls and transfers to return home with at OF Recommended Interventions: Therapeutic Activity, Therapeutic Exercise and [...] Upon OTR departure, pt in chair with CANDLEMAKER present, call light within reach, and all [...] discharge. He will do outpatient therapy at [facility]. His will transporthim home. He has [...] Dressing Assistance No Behavior Oriented Communication Talks;Understands Kyrgyz;Understands speaking Socioeconomic Needs Caregiver Needed No At [...] Will continue to monitor pain level. * DUC Dee-BC - 10/16/2019 8:26 AM CDT Daily Progress [...] ??? Essential hypertension ??? Paroxysmal atrial fibrillation ([facility]) ??? 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 Obstructive sleep apnea ??? Hyperlipidemia ??? Diabetes ([facility]) ??? Coronary artery disease ??? 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 Cardiovascular stress test abnormal ??? Arthritis of knee ??? Derangement of medial meniscus, left ??? Encounter for follow-up examination after completed treatment for conditions other than malignant neoplasm ??? Heartburn ??? Knee pain ??? Mechanical complication of internal orthopedic device, implant or graft, initial encounter ([facility]) ??? Patella-femoral syndrome ??? Pes anserine bursitis ??? Recurrent ventral incisional hernia ??? Abdominal pain ??? Failure of total knee replacement, initial encounter ([facility]) ??? S/P coronary artery stent placement ??? Prosthetic knee implant failure ([facility]) ??? Status post revision of [...] this afternoon with outpatient physical therapy at [facility] in [place]. Signed ISAURO DEE 10/16/2019 Cosigned by Danny Steiner MD at 10/16/2019 9:45 AM CDT * Mau Jackson - 10/15/2019 10:18 PM CDT Patient is resting comfortably in bed with call light within reach. Will continue to monitor throughout shift. * Darnell Cabrera, PT - 10/15/2019 5:[address] 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 CARDIAC CATHETERIZATION 11/13/2018 ??? FRACTURE SURGERY ??? HERNIA REPAIR ??? KNEE ARTHROPLASTY Bilateral ??? LITHOTRIPSY ??? XA ABLATION 05/19/2016 ??? XA CORONARY INTERVENTION 03/24/2018 WAREHOUSE ASSOCIATE DRIVER PCI-mid RCA Subjective: Orientation: x 4 Pain: [...] ROM set from 0-60 without pain. Notified REGRIND MILL OPERATOR to remove CPM at 1940. Transfers: Bed mobility/rolling: Not Performed this Date Supine to sit: Not Performed this Date Sit to stand: Not Performed this Date Pivot: Not Performed this Date Ambulation: Not attempted this date. Activity performed this session: Evaluation only this date. 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 Patient is demonstrating deficits in Strength, ROM, [...] documented in this encounter H&P Notes * Danny Steiner MD - 10/15/2019 11:47 AM CDT [...] during recuperation were discussed with the patient/family/personal direct sales representative. Reasonable alternatives to the patient's proposed procedure/surgery including benefits, risks, and side effects related to the alternatives and the risks related to not receiving the proposed care were also discussed with the patient/family/personal direct sales representative. Questions were answered and the patient /family/personal direct sales representative verbalized understanding and desires to proceed. Source Note - Danny Steiner MD - 09/21/2019 11:15 AM CDT [...] hypertension ??? Paroxysmal atrial fibrillation (CMS/HCC) ??? 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 Obstructive sleep apnea ??? Hyperlipidemia ??? Diabetes (CMS/HCC) ??? Coronary artery disease of [place] artery of [place] heart with stable angina pectoris (CMS/HCC) ??? 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 Cardiovascular stress test abnormal ??? Arthritis of knee ??? Derangement of medial meniscus, left ??? Encounter for follow-up examination after completed treatment for conditions other than malignant neoplasm ??? Heartburn ??? Knee pain ??? Mechanical complication of internal orthopedic device, implant or graft, initial encounter ([facility]) ??? Patella-femoral syndrome ??? Pes anserine bursitis ??? Recurrent ventral incisional hernia ??? Abdominal pain ??? Failure of total knee replacement, initial encounter ([facility]) ??? S/P coronary artery stent placement History: Past Medical History: Diagnosis Date ??? Abnormal stress test ??? Arthritis ??? Chest pain ??? 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 Diabetes (CMS/HCC) ??? Fatigue ??? GERD (gastroesophageal reflux disease) ??? Headache ??? Hyperlipidemia ??? Hypertension has had elevated B/P readings ??? Kidney stone ??? SARAI on CPAP ??? Paroxysmal atrial fibrillation (CMS/HCC) ??? PONV (postoperative nausea and vomiting) ??? SOB (shortness of breath) Past Surgical History: Procedure Laterality Date ??? CARDIAC CATHETERIZATION 01/04/2018 occluded prox RCA w/well developed rfwn-fz-hwryv collaterals lvef 55-60% ??? FRACTURE SURGERY ??? HERNIA REPAIR ??? KNEE ARTHROPLASTY ??? LITHOTRIPSY ??? XA ABLATION 05/19/2016 ??? XA CORONARY INTERVENTION 03/24/[address] Cleary Family History Problem Relation Name [...] Not on file Occupational History ??? 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 Financial resource strain: Not [...] file Gets together: Not on file Attends taoism service: Not on file Active member of [...] Failure of total knee replacement, initial encounter ([facility]) T84.018A 996.47 PROSTHETIC JOINT MECHANICAL FAILURE Z96.659 V43.65 4. termite helper current use of anticoagulant therapy Z79.01 V58.61 [...] and benefits Follow up: Return for Post-Op. DANNY STEINER MD documented in this encounter Nursing Notes * Kimberly Orozco RN - 10/18/2019 11:[address] Steiner here to see pt. Ok to DC. 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 Procedure Description: Revision right total knee arthroplasty with allograft impaction grafting medial femoral condyle using a [place] attune posterior stabilized size 5 revision femur with a 30 mm sleeve with a 16 x 60 mm stem with a size 5 rotating platform tibial revision tray with a 29 mm sleeve and 14 x 60 mm stem using a +6 rotating platform polyethylene spacer Surgeon:DANNY STEINER MD Anesthesia: Spinal with sedation Indication: [...] the procedure * Brief Op Note - Danny Steiner MD - 10/15/2019 3:28 PM CDT [facility] Brief Op [facility]Revision RIGHT Total Knee Arthroplasty [place] notified Inpatient Procedure Note Evaristo Zelaya 10/15/2019 1208 Procedure(s) (LRB): Revision RIGHT Total Knee Arthroplasty [place] notified Inpatient (Right) Surgeon(s): Danny Steiner MD Downstream Biomanufacturing Technician: None Anesthesia: Spinal Pre-Op Diagnosis: T84.018A Post-Op Diagnosis: 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 Findings: Medial femoral condyle osteolysis Estimated Blood Loss: 400 Specimens: ID Type Source Tests Collected by Time 1 : fluid BODY FLUID KNEE, RIGHT CULTURE, ANAEROBIC, CULTURE, BODY FLUID W/ GRAM STAIN, CULTURE, FUNGUS Danny Steiner MD 10/15/2019 1241 2 : lateral TISSUE KNEE, RIGHT CULTURE, ANAEROBIC, CULTURE, FUNGUS, CULTURE, TISSUE W/GRAM STAIN Danny Steiner MD 10/15/2019 1244 3 : superior TISSUE KNEE, RIGHT CULTURE, ANAEROBIC, CULTURE, FUNGUS, CULTURE, TISSUE W/GRAM STAIN Danny Steiner MD 10/15/2019 1247 4 : inferior TISSUE KNEE, RIGHT CULTURE, ANAEROBIC, CULTURE, FUNGUS, CULTURE, TISSUE W/GRAM STAIN Danny Steiner MD 10/15/2019 1248 5 : medial TISSUE KNEE, RIGHT CULTURE, ANAEROBIC, CULTURE, FUNGUS, CULTURE, TISSUE W/GRAM STAIN Danny Steiner MD 10/15/2019 1252 6 : Medial Femoral Chondyle TISSUE KNEE, RIGHT CULTURE, ANAEROBIC, CULTURE, FUNGUS, CULTURE, TISSUEW/GRAM STAIN Danny Steiner MD 10/15/2019 1316 DANNY STEINER MD Date: 10/15/2019 Time: 3:28 PM documented in this encounter Plan of Treatment Upcoming Encounters Date Type Department Care Team (Late st Contact Info) Description 04/25/2024 11:00 AM ENGRAVER HAND SOFT METALS Appointment [facility] [address] [place] [address] [place] [address] Ti Bonilla MD [address] [place] [phone] 05/23/2024 3:30 PM ENGRAVER HAND SOFT METALS Office Visit [facility] [address] [place] [address] Jyoti Escobar MD [address] [place] [id number] documented as of this encounter Procedures Procedure [...] - 99 MG/DL 10/18/2019 11:18 AM CDT [facility] ORDERS INTERFACE 10/18/2019 11:1 6 AM CDT Danny Steiner MD POCT ORDERABLES - DEVICE Final Result Performing Organization Address [facility] de Phone Number [facility] ORDERS INTERFACE US * (ABNORMAL) POCT glucose (10/18/2019 6:05 AM CDT) GLUCOSE POC 136(H) 70 - 99 MG/DL 10/18/2019 6:18 AM CDT [facility] ORDERS INTERFACE 10/18/2019 6:05 AM CDT Danny Steiner MD POCT ORDERABLES - DEVICE Final Result Performing Organization Address [facility] de Phone Number [facility] ORDERS INTERFACE US * (ABNORMAL) POCT glucose (10/17/2019 8:33 PM CDT) GLUCOSE POC 143(H) 70 - 99 MG/DL 10/17/2019 8:40 PM CDT [facility] ORDERS INTERFACE 10/17/2019 8:33 PM CDT Danny Steiner MD POCT ORDERABLES - DEVICE Final Result Performing Organization Address [facility] de Phone Number [facility] ORDERS INTERFACE US * (ABNORMAL) POCT glucose (10/17/2019 4:10 PM CDT) GLUCOSE POC 150(H) 70 - 99 MG/DL 10/17/2019 4:22 PM CDT [facility] ORDERS INTERFACE 10/17/2019 4:10 PM CDT us Danny Steiner MD POCT ORDERABLES - DEVICE Final Result Performing Organization Address [facility] de Phone Number [facility] ORDERS INTERFACE US * (ABNORMAL) POCT glucose (10/17/2019 11:04 AM CDT) GLUCOSE POC 189(H) 70 - 99 MG/DL 10/17/2019 11:06 AM CDT [facility] ORDERS INTERFACE 10/17/2019 11:0 4 AM CDT us Danny Steiner MD POCT ORDERABLES - DEVICE Final Result [facility] ORDERS INTERFACE US * XR KNEE [...] Interpreted By: Matteo Buenrostro, 10/17/2019 9:35 AM Dari Piña TAX COMMISSIONER-BC GENERAL IMAGING Final Resu lt * XR [...] Interpreted By: Matteo Buenrostro, 10/17/2019 9:35 AM Dari Piña TAX COMMISSIONER-BC GENERAL IMAGING Final Resu lt * (ABNORMAL) POCT glucose (10/17/2019 6:04 AM CDT) GLUCOSE POC 178(H) 70 - 99 MG/DL 10/17/2019 6:06 AM CDT [facility] ORDERS INTERFACE 10/17/2019 6:04 AM CDT Danny Steiner MD POCT ORDERABLES - DEVICE Final Result [facility] ORDERS INTERFACE US * (ABNORMAL) POCT glucose (10/16/2019 8:06 PM CDT) GLUCOSE POC 205(H) 70 - 99 MG/DL 10/16/2019 8:11 PM CDT [facility] ORDERS INTERFACE 10/16/2019 8:06 PM CDT Danny Steiner MD POCT ORDERABLES - DEVICE Final Result Performing Organization Address [facility]/State/ZIP Co de Phone Number [facility] ORDERS INTERFACE US * POCT glucose (10/16/2019 3:57 PM CDT) GLUCOSE POC 75 70 - 99 MG/DL 10/16/2019 4:00 PM CDT [facility] ORDERS INTERFACE 10/16/2019 3:57 PM CDT Danny Steiner MD POCT ORDERABLES - DEVICE Final Result Performing Organization Address [facility]/ZIP Co de Phone Number [facility] ORDERS INTERFACE US * (ABNORMAL) POCT glucose (10/16/2019 11:03 AM CDT) GLUCOSE POC 148(H) 70 - 99 MG/DL 10/16/2019 11:15 AM CDT [facility] ORDERS INTERFACE 10/16/2019 11:0 3 AM CDT us Danny Steiner MD POCT ORDERABLES - DEVICE Final Result Performing Organization Address [facility] Co de Phone Number [facility] ORDERS INTERFACE US * (ABNORMAL) POCT glucose (10/16/2019 6:16 AM CDT) GLUCOSE POC 214(H) 70 - 99 MG/DL 10/16/2019 6:21 AM CDT [facility] ORDERS INTERFACE 10/16/2019 6:16 AM CDT Danny Steiner MD POCT ORDERABLES - DEVICE Final Result Performing Organization Address [facility] Co de Phone Number [facility] ORDERS INTERFACE US * (ABNORMAL) HEMOGLOBIN AND HEMATOCRIT - in AM X 1 (10/16/2019 5:45 AM CDT) HGB 10.4(L) 13.0 - 18.0 G/DL 10/16/2019 6:10 AM CDT [facility] HCT 32.9(L) 37.0 - 52.0 % 10/16/2019 6:10 AM CDT [facility] 10/16/2019 5:45 AM CDT Danny Steiner MD LABORATORY Final Result Performing Organization Address [facility] Co de Phone Number [facility] [place] [address], * (ABNORMAL) POCT glucose (10/15/2019 9:40 PM CDT) GLUCOSE POC 198(H) 70 - 99 MG/DL 10/16/2019 5:19 AM CDT [facility] ORDERS INTERFACE 10/15/2019 9:40 PM CDT Danny Setiner MD POCT ORDERABLES - DEVICE Final Result Performing Organization Address [facility] Co de Phone Number [facility] ORDERS INTERFACE US * (ABNORMAL) POCT glucose (10/15/2019 4:46 PM CDT) GLUCOSE POC 254(H) 70 - 99 MG/DL 10/15/2019 5:05 PM CDT [facility] ORDERS INTERFACE 10/15/2019 4:46 PM CDT us Danny Steiner MD POCT ORDERABLES - DEVICE Final Result Performing Organization Address [facility]/ZIP Co de Phone Number [facility] ORDERS INTERFACE US * (ABNORMAL) POCT glucose (10/15/2019 3:54 PM CDT) GLUCOSE POC 223(H) 70 - 99 MG/DL 10/15/2019 4:06 PM CDT [facility] ORDERS INTERFACE 10/15/2019 3:54 PM CDT us Danny Steiner MD POCT ORDERABLES - DEVICE Final Result Performing Organization Address [facility] Co de Phone Number [facility] ORDERS INTERFACE US * CULTURE, TISSUE W/GRAM STAIN (10/15/2019 12:52 PM CDT) SPEC DESCRIPTION KNEE,RIGHT 10/15/2019 1:18 PM CDT [facility] SPECIAL REQUESTS NO SPECIAL REQUEST 10/15/2019 1:18 PM CDT [facility] GRAM STAIN RESULT NO ORGANISMS SEEN 10/15/2019 3:44 PM CDT [facility] CULTURE RESULT NO GROWTH 5 DAYS 10/21/2019 10:17 AM CDT [facility] Tissue specimen (specimen) STRUCTURE OF RIGHT KNEE REGION / Unknown 10/15/2019 1:16 PM CDT us Danny Steiner MD MICROBIOLOGY - GENERAL ORDERAB LES Final Result Performing Organization Address City/[facility]/ZIP Co de Phone Number [facility] [address] [place] [address], [place] [phone] [facility] [address] [place] [address], [place] [phone] * CULTURE, FUNGUS (10/15/2019 12:52 PM CDT) SPEC DESCRIPTION KNEE,RIGHT: MEDIAL FEMORAL CONDYLE 10/15/2019 1:18 PM CDT [facility] SPECIAL REQUESTS NO SPECIAL REQUEST 10/15/2019 1:18 PM CDT [facility] STAIN RESULT: NO YEAST OR FUNGAL ELEMENTS SEEN 10/17/2019 4:37 PM CDT [facility] CULTURE RESULT NO FUNGUS ISOLATED AFTER 4 WEEKS 11/13/2019 5:57 PM CDT [facility] Tissue specimen (specimen) STRUCTURE OF RIGHT KNEE REGION / Unknown 10/15/2019 1:16 PM CDT us Danny Steiner MD MICROBIOLOGY - GENERAL ORDERAB LES Final Result Performing Organization Address [facility] Co de Phone Number [facility] [address] [place] [address], [phone] [facility] [address] [place] [address], [place] [phone] * CULTURE, ANAEROBIC (10/15/2019 12:52 PM CDT) SPEC DESCRIPTION KNEE,RIGHT 10/15/2019 1:18 PM CDT [facility] SPECIAL REQUESTS NO SPECIAL REQUEST 10/15/2019 1:18 PM CDT [facility] CULTURE RESULT NO ANAEROBES ISOLATED 10/21/2019 10:16 AM CDT [facility] Tissue specimen (specimen) STRUCTURE OF RIGHT KNEE REGION / Unknown 10/15/2019 1:16 PM CDT us Danny Steiner MD MICROBIOLOGY - GENERAL ORDERAB LES Final Result Performing Organization Address [facility]/ZIP Co de Phone Number [facility] [address] [place] [address], [place] [phone] [facility] [address] [place] [address], * CULTURE, TISSUE W/GRAM STAIN (10/15/2019 12:52 PM CDT) SPEC DESCRIPTION KNEE,RIGHT 10/15/2019 1:05 PM CDT [facility] SPECIAL REQUESTS NO SPECIAL REQUEST 10/15/2019 1:05 PM CDT [facility] GRAM STAIN RESULT NO ORGANISMS SEEN 10/15/2019 3:43 PM CDT [facility] CULTURE RESULT RARE STAPHYLOCOCCU S, COAGULASE NEGATIVE 10/19/2019 9:21 AM CDT [facility] Tissue specimen (specimen) STRUCTURE OF RIGHT [...] coagulase negative VANCOMYCIN TOSHA (V ITEK) Sensitive Danny Steiner MD MICROBIOLOGY - GENERAL ORDERAB LES Final Result [facility] [address] [place] [address], [place] [phone] [facility] [address] [place] [address], [place] [phone] * CULTURE, TISSUE W/GRAM STAIN (10/15/2019 12:52 PM CDT) SPEC DESCRIPTION KNEE,RIGHT 10/15/2019 1:05 PM CDT [facility] SPECIAL REQUESTS NO SPECIAL REQUEST 10/15/2019 1:05 PM CDT [facility] GRAM STAIN RESULT NO ORGANISMS SEEN 10/15/2019 3:43 PM CDT [facility] CULTURE RESULT NO GROWTH 5 DAYS 10/21/2019 10:15 AM CDT [facility] Tissue specimen (specimen) STRUCTURE OF RIGHT KNEE REGION / Unknown 10/15/2019 12:48 PM CDT Danny Steiner MD MICROBIOLOGY - GENERAL ORDERAB LES Final Result [facility] [address] [place] [address], [place] [phone] [facility] [address] [place] [address], [place] [phone] * CULTURE, TISSUE W/GRAM STAIN (10/15/2019 12:52 PM CDT) SPEC DESCRIPTION KNEE,RIGHT 10/15/2019 1:05 PM CDT [facility] SPECIAL REQUESTS NO SPECIAL REQUEST 10/15/2019 1:05 PM CDT [facility] GRAM STAIN RESULT NO ORGANISMS SEEN 10/15/2019 3:43 PM CDT [facility] CULTURE RESULT RARE ALPHA STREPTOCOCCUS 10/18/2019 9:23 AM CDT [facility] Tissue specimen (specimen) STRUCTURE OF RIGHT KNEE REGION / Unknown 10/15/2019 12:47 PM CDT Narrative Organism Antibiotic Method Susceptibility Alpha streptococcus CEFOTAXIME TOSHA (ETEST) 0.064: Sensitive Alpha streptococcus PENICILLIN TOSHA (ETEST) 0.094: Sensitive Danny Steiner MD MICROBIOLOGY - GENERAL ORDERAB LES Final Result Performing Organization Address City/[facility]/ZIP Co de Phone Number [facility] [address] [place] [address], [place] [phone] [facility] [address] [place], [place] [address] [address], [place] [phone] * CULTURE, FUNGUS (10/15/2019 12:52 PM CDT) SPEC DESCRIPTION KNEE,RIGHT: MEDIAL 10/15/2019 1:05 PM CDT [facility] SPECIAL REQUESTS NO SPECIAL REQUEST 10/15/2019 1:05 PM CDT [facility] STAIN RESULT: NO YEAST OR FUNGAL ELEMENTS SEEN 10/17/2019 4:37 PM CDT [facility] CULTURE RESULT NO FUNGUS ISOLATED AFTER 4 WEEKS 11/13/2019 5:57 PM CDT [facility] Tissue specimen (specimen) STRUCTURE OF RIGHT KNEE REGION / Unknown 10/15/2019 12:52 PM CDT us Danny Steiner MD MICROBIOLOGY - GENERAL ORDERAB LES Final Result Performing Organization Address [facility] Co de Phone Number [facility] [address] [place] [address], [place] [phone] [facility] [address] [place] [address], [place] [phone] * CULTURE, FUNGUS (10/15/2019 12:52 PM CDT) SPEC DESCRIPTION KNEE,RIGHT: INFERIOR 10/15/2019 1:05 PM CDT [facility] SPECIAL REQUESTS NO SPECIAL REQUEST 10/15/2019 1:05 PM CDT [facility] STAIN RESULT: NO YEAST OR FUNGAL ELEMENTS SEEN 10/17/2019 4:36 PM CDT [facility] CULTURE RESULT NO FUNGUS ISOLATED AFTER 4 WEEKS 11/13/2019 5:57 PM CDT [facility] Tissue specimen (specimen) STRUCTURE OF RIGHT KNEE REGION / Unknown 10/15/2019 12:48 PM CDT us Danny Steiner MD MICROBIOLOGY - GENERAL ORDERAB LES Final Result Performing Organization Address [facility]/ZIP Co de Phone Number [facility] [address] [place] [address], [place] [phone] [facility] [address] [place] [address], [place] [phone] * CULTURE, FUNGUS (10/15/2019 12:52 PM CDT) SPEC DESCRIPTION KNEE,RIGHT: SUPERIOR 10/15/2019 1:05 PM CDT [facility] SPECIAL REQUESTS NO SPECIAL REQUEST 10/15/2019 1:05 PM CDT [facility] STAIN RESULT: NO YEAST OR FUNGAL ELEMENTS SEEN 10/17/2019 4:36 PM CDT [facility] CULTURE RESULT NO FUNGUS ISOLATED AFTER 4 WEEKS 11/13/2019 5:57 PM CDT [facility] Tissue specimen (specimen) STRUCTURE OF RIGHT KNEE REGION / Unknown 10/15/2019 12:47 PM CDT us Danny Steiner MD MICROBIOLOGY - GENERAL ORDERAB LES Final Result Performing Organization Address [facility] Co de Phone Number [facility] [address] [place] [address], [place] [phone] [facility] [address] [place] [address], [place] [phone] * CULTURE, FUNGUS (10/15/2019 12:52 PM CDT) SPEC DESCRIPTION KNEE,RIGHT: FLUID 10/15/2019 1:05 PM CDT [facility] SPECIAL REQUESTS NO SPECIAL REQUEST 10/15/2019 1:05 PM CDT [facility] STAIN RESULT: NO YEAST OR FUNGAL ELEMENTS SEEN 10/17/2019 4:36 PM CDT [facility] CULTURE RESULT NO FUNGUS ISOLATED AFTER 4 WEEKS 11/13/2019 5:57 PM CDT [facility] Body fluid specimen (specimen) STRUCTURE OF RIGHT KNEE REGION / Unknown 10/15/2019 12:41 PM CDT us Danny Steiner MD MICROBIOLOGY - GENERAL ORDERAB LES Final Result Performing Organization Address [facility] Co de Phone Number [facility] [address] [place] [address], [place] [phone] [facility] [address] [place] [address], * CULTURE, BODY FLUID W/ GRAM STAIN (10/15/2019 12:52 PM CDT) SPEC DESCRIPTION KNEE,RIGHT 10/15/2019 1:05 PM CDT [facility] SPECIAL REQUESTS NO SPECIAL REQUEST 10/15/2019 1:05 PM CDT [facility] GRAM STAIN RESULT NO ORGANISMS SEEN 10/15/2019 3:42 PM CDT [facility] CULTURE RESULT NO GROWTH 5 DAYS 10/21/2019 10:13 AM CDT [facility] Body fluid specimen (specimen) STRUCTURE OF RIGHT KNEE REGION / Unknown 10/15/2019 12:41 PM CDT Danny Steiner MD MICROBIOLOGY - GENERAL ORDERAB LES Final Result [facility] [address] [place] [address], [place] [phone] [facility] [address] [place] [phone], * CULTURE, ANAEROBIC (10/15/2019 12:52 PM CDT) SPEC DESCRIPTION KNEE,RIGHT 10/15/2019 1:05 PM CDT [facility] SPECIAL REQUESTS NO SPECIAL REQUEST 10/15/2019 1:05 PM CDT [facility] CULTURE RESULT NO ANAEROBES ISOLATED 10/21/2019 10:16 AM CDT [facility] Tissue specimen (specimen) STRUCTURE OF RIGHT KNEE REGION / Unknown 10/15/2019 12:52 PM CDT us Danny Steiner MD MICROBIOLOGY - GENERAL ORDERAB LES Final Result [facility] [address] [place] [address], [place] [phone] [facility] [address] [place] [address], [place] [phone] * CULTURE, ANAEROBIC (10/15/2019 12:52 PM CDT) SPEC DESCRIPTION KNEE,RIGHT 10/15/2019 1:05 PM CDT [facility] SPECIAL REQUESTS NO SPECIAL REQUEST 10/15/2019 1:05 PM CDT [facility] CULTURE RESULT NO ANAEROBES ISOLATED 10/21/2019 10:15 AM CDT [facility] Tissue specimen (specimen) STRUCTURE OF RIGHT KNEE REGION / Unknown 10/15/2019 12:48 PM CDT us Danny Steiner MD MICROBIOLOGY - GENERAL ORDERAB LES Final Result Performing Organization Address City/[facility]/ZIP Co de Phone Number [facility] [address] [place] [address], [place] [phone] [facility] [address] [place] [address], [place] [phone] * CULTURE, ANAEROBIC (10/15/2019 12:52 PM CDT) SPEC DESCRIPTION KNEE,RIGHT 10/15/2019 1:05 PM CDT [facility] SPECIAL REQUESTS NO SPECIAL REQUEST 10/15/2019 1:05 PM CDT [facility] CULTURE RESULT NO ANAEROBES ISOLATED 10/21/2019 10:14 AM CDT [facility] Tissue specimen (specimen) STRUCTURE OF RIGHT KNEE REGION / Unknown 10/15/2019 12:47 PM CDT us Danny Steiner MD MICROBIOLOGY - GENERAL ORDERAB LES Final Result [facility] [address] [place] [address], [place] [phone] [facility] [address] [place] [address], [place] [phone] * CULTURE, ANAEROBIC (10/15/2019 12:52 PM CDT) SPEC DESCRIPTION KNEE,RIGHT 10/15/2019 1:05 PM CDT [facility] SPECIAL REQUESTS NO SPECIAL REQUEST 10/15/2019 1:05 PM CDT [facility] CULTURE RESULT NO ANAEROBES ISOLATED 10/20/2019 6:51 AM CDT [facility] Body fluid specimen (specimen) STRUCTURE OF RIGHT KNEE REGION / Unknown 10/15/2019 12:41 PM CDT us Danny Steiner MD MICROBIOLOGY - GENERAL ORDERAB LES Final Result Performing Organization Address [facility] Co de Phone Number [facility] [address] [place] [address], [phone] [facility] [place] [address], [place] [phone] * CULTURE, TISSUE W/GRAM STAIN (10/15/2019 12:44 PM CDT) SPEC DESCRIPTION KNEE,RIGHT 10/15/2019 2:06 PM CDT [facility] SPECIAL REQUESTS NO SPECIAL REQUEST 10/15/2019 2:06 PM CDT [facility] GRAM STAIN RESULT NO ORGANISMS SEEN 10/15/2019 3:43 PM CDT [facility] CULTURE RESULT NO GROWTH 5 DAYS 10/21/2019 10:14 AM CDT [facility] Tissue specimen (specimen) STRUCTURE OF RIGHT KNEE REGION / Unknown 10/15/2019 12:44 PM CDT us Danny Steiner MD MICROBIOLOGY - GENERAL ORDERAB LES Final Result Performing Organization Address [facility] Co de Phone Number [facility] [address] [place] [address], [phone] [facility] [address] [email or web address] [address], [place] [phone] * CULTURE, FUNGUS (10/15/2019 12:44 PM CDT) SPEC DESCRIPTION KNEE,RIGHT: LATERAL 10/15/2019 2:06 PM CDT [facility] SPECIAL REQUESTS NO SPECIAL REQUEST 10/15/2019 2:06 PM CDT [facility] STAIN RESULT: NO YEAST OR FUNGAL ELEMENTS SEEN 10/17/2019 4:36 PM CDT [facility] CULTURE RESULT NO FUNGUS ISOLATED AFTER 4 WEEKS 11/13/2019 5:57 PM CDT [facility] Tissue specimen (specimen) STRUCTURE OF RIGHT KNEE REGION / Unknown 10/15/2019 12:44 PM CDT Danny Steiner MD MICROBIOLOGY - GENERAL ORDERAB LES Final Result Performing Organization Address City/[facility]/ZIP Co de Phone Number [facility] [address] [place] [address], [place] [phone] [facility] [address] [place], [place] [address] [address], [place] [phone] * CULTURE, ANAEROBIC (10/15/2019 12:44 PM CDT) SPEC DESCRIPTION KNEE,RIGHT 10/15/2019 2:06 PM CDT [facility] SPECIAL REQUESTS NO SPECIAL REQUEST 10/15/2019 2:06 PM CDT [facility] CULTURE RESULT NO ANAEROBES ISOLATED 10/21/2019 10:14 AM CDT [facility] Tissue specimen (specimen) STRUCTURE OF RIGHT KNEE REGION / Unknown 10/15/2019 12:44 PM CDT us Danny Steiner MD MICROBIOLOGY - GENERAL ORDERAB LES Final Result Performing Organization Address [facility]/ZIP Co de Phone Number [facility] [address] [place] [address], [place] [phone] [facility] [place] [address], documented in this encounter Visit Diagnoses Diagnosis 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 documented in this encounter Administered Medications Inactive Administered Medications - up to 3 most recent administrations Medication Order MAR Action Action Date Dose Rate Site acetaminophen (TYLENOL) 500 MG tablet 1 dose, Starting on Tue10/15/19 at 1039, Until Tue10/15/19 at 1104, Created by cabinet override acetaminophen (TYLENOL) tablet 1,000 mg 1,000 mg, Oral, Once, 1 dose, On Tue10/15/19 at 1045, Maximum dose of acetaminophen is 4000 mg from all sources in 24 hours., Pre-Op Given 10/15/2019 11:04 AM CDT 1,000 mg amitriptyline (ELAVIL) tablet 50 mg 50 mg, [...] Given 10/15/2019 9:41 PM CDT 40 mg ceFAZolin (ANCEF) 2 g in NS 100 mL IVPB 2 g, Intravenous, at 200 mL/hr, Every 8 hours, 2 doses, First dose on Tue10/15/19 at 2000, Last dose on Tue10/16/19 at 0400, Give 2 gram dose for patients less than 120 kg. PHARMACY TO ADJUST administration times based on pre-op/intra-op dose. Do NOT continue greater than 24 hours after anesthesia end time., Post-Op New Bag 10/16/2019 3:19 AM CDT 2 g 200 mL/hr New Bag 10/15/2019 9:41 PM CDT 2 g 200 mL/hr celecoxib (CeleBREX) 100 MG capsule 1 dose, Starting on Tue10/15/19 at 1039, Until Tue10/15/19 at 1105, Created by nahid feng celecoxib (CeleBREX) capsule 200 mg 200 mg, Oral, Once, 1 dose, On Tue10/15/19 at 1045, Do not administer with antacids, Pre-Op Given 10/15/2019 11:05 AM CDT 200 mg chlorhexidine (PERIDEX) 0.12 % solution 15 mL 15 mL, Mouth/Throat, Once, 1 dose, On Tue10/15/19 at 1130, Patient to perform oral care first. Swish/gargle in mouth for 30 seconds, and then discard prior to going to surgery. If ventilated use saturated swab to clean oral cavity., Pre-Op Given 10/15/2019 11:07 AM CDT 15 mLs dabigatran (PRADAXA) capsule 150 mg 150 mg, [...] at 1830, Until Vika 10/18/19 at 1421 Given 10/17/2019 11:44 PM CDT [...] 4:07 PM CDT 300 mg HYDROcodone-acetaminophen (NORCO) 10-325 MG tablet 1 tablet 1 tablet, Oral, Every 4 hours PRN, Moderate pain (Scale 4 - 7), Starting on Tue10/15/19 at 1643, Until Tue10/16/19 at 1428, Maximum dose of acetaminophen is 4000 mg from all sources in 24 hours., Post-Op Given 10/16/2019 12:11 PM CDT 1 tablet Given 10/16/2019 8:25 AM CDT 1 tablet HYDROcodone-acetaminophen (NORCO) 5-325 MG tablet 1 tablet [...] Given 10/16/2019 8:22 PM CDT 32 Units R ight Arm Given 10/15/2019 9:41 PM CDT 32 [...] Given 10/16/2019 8:25 AM CDT 30 mg lactated ringers infusion at 10 mL/hr, Intravenous, Continuous, Starting on Tue10/15/19 at 1045, Until Tue10/16/19 at 0830, Infuse at TKO rate, Pre-Op New Bag 10/15/2019 11:04 AM CDT 10 mL/hr lactated ringers infusion at 75 mL/hr, Intravenous, Continuous, Starting on Tue10/15/19 at 1700, Until Tue10/16/19 at 0830, May discontinue IV Fluid when adequate oral intake, Post-Op New Bag 10/16/2019 3:12 AM CDT 7 5 mL/hr metFORMIN (GLUCOPHAGE) tablet 850 mg 850 mg, [...] Tue10/16/19 at 1427, Until Tue10/18/19 at 1421 Given 10/16/2019 10:22 PM CDT 4 mg Given 10/16/2019 2:54 PM CDT 4 mg ondansetron (ZOFRAN) injection 4 mg 4 mg, Intravenous, Every 8 hours PRN, Nausea, Vomiting, Starting on Tue10/15/19 at 1643, Until Tue10/18/19 at 1421, IV push over 2-5 minutes., Post-Op Given 10/15/2019 9:41 PM CDT 4 mg ondansetron (ZOFRAN-ODT) disintegrating tablet 4 mg 4 mg, Oral, Once, 1 dose, On Tue10/18/19 at 1100 Given 10/18/2019 10:44 AM CDT 4 mg oxyCODONE ER (OxyCONTIN) 12 [...] Given 10/17/2019 11:44 PM CDT 1 tablet spironolactone (ALDACTONE) tablet 25 mg 25 mg, [...] 24 hours after anesthesia end time., Post-Op 031 (New Bag - Provider: Mau Jackson)05 (Infusion Stop Time - Provider: Mau Jackson) dabigatran (PRADAXA) capsule 150 mg 150 mg, Oral, 2 times daily, First dose on Tue10/16/19 at 0900, Until Discontinued 824 (Given - Provider: Ashley Delgado RN)2021 (Given - Provider: Mau Jackson) 757 (Given - Provider: Ashley Delgado RN)2035 (Given - Provider: Meme Sanders RN) 802 (Given - Provider: Kimberly Orozco RN) docusate sodium (COLACE) capsule 100 mg 100 mg, Oral, Daily, First dose on Tue10/15/19 at 1700, Until Discontinued, Post-Op 824 (Given - Provider: Ashley Delgado RN) 756 (Given - Provider: Ashley Delgado RN) 801 (Given - Provider: Kimberly Orozco RN) famotidine [...] Discontinued 0825 (Given - Provider: Ashley Delgado RN)160 (Given - Provider: Ashley Delgado RN)2021 (Given - Provider: Mau Jackson) 075 (Given - Provider: Ashley Delgado RN)160 (Given - Provider: Ashley Delgado RN)2035 (Given - Provider: Meme Sanders RN) 0802 (Given - Provider: Kimberly Orozco RN) insulin glargine (LANTUS) injection 32 [...] RN)1609 (Given - Provider: Ashley Delgado RN) 0757 (Given - Provider: Ashley Delgado RN)1156 (Given - Provider: Ashley Delgado RN)1607 (Given - Provider: Ashley Delgado RN) 08 (Given - Provider: Kimberly Orozco RN)1123 (Given - Provider: Kimberly Orozco RN) metoprolol succinate ER (TOPROL-XL) 24 hr tablet 50 mg 50 mg, Oral, Daily, First dose on Tue10/15/19 at 1700, Until Discontinued, May be split in half along the tablet score line; do not chew or crush. 0825 (Given - Provider: Ashley Delgado RN) 0757 (Given - Provider: Ashley Delgado RN) 08 [...] Discontinued, Do not break, chew, or crush. 0809 (Given - Provider: Ashley Delgado RN)203 (Given - Provider: eMme Sanders RN) 08 (Given - Provider: Kimberly Orozco RN) spironolactone (ALDACTONE) tablet 25 mg 25 mg, Oral, Daily, First dose on Tue10/15/19 at 1700, Until Discontinued 0825 (Given - Provider: Ashley Delgado RN) 0757 (Given - Provider: Ashley Delgado RN) 08 (Given - Provider: Kimberly Orozco RN) tamsulosin (FLOMAX) capsule 0.4 mg 0.4 mg, Oral, Daily, First dose on Tue10/15/19 at 1700, Until Discontinued 0825 (Given - Provider: Ashley Delgado RN) 0758 (Given - Provider: Ashley Delgado RN) 08 (Given - Provider: Kimberly Orozco RN) Continuous [...] Tue10/15/19 at 1643, Until Tue10/18/19 at 1421, Do not break, chew, or crush., Post-Op diazePAM (VALIUM) tablet 5 mg 5 mg, Oral, Every 6 hours PRN, Muscle Spasms, Starting on Tue10/17/19 at 1830, Until Tue10/18/19 at 1421 6214 (Given - Provider: Meme Sanders RN) diphenhydrAMINE (BENADRYL) 12.5 MG/5ML elixir 25 mg(Linked Group 2) 25 mg, Oral, Every 6 hours PRN, Itching, Starting on Tue10/15/19 at 1643, Until Tue10/18/19 at 1421, Give if unable to swallow tablets/capsules or if patient prefers liquid., Post-Op diphenhydrAMINE (BENADRYL) capsule 25 mg(Linked Group 2) 25 mg, Oral, Every 6 hours PRN, Itching, Starting on Tue10/15/19 at 1643, Until Tue10/18/19 at 1421, Post-Op diphenhydrAMINE (BENADRYL) injection 25 [...] from all sources in 24 hours., Post-Op 0825 (Given - Provider: Ashley Delgado RN)1211 (Given - Provider: Ashley Delgado RN) HYDROcodone-acetaminophe n (NORCO) 5-325 MG tablet 1 tablet 1 tablet, Oral, Every 4 hours PRN, Mild pain (Scale 1 - 3), Starting on Tue10/15/19 at 1643, Until Tue10/18/19 at 1421, Maximum dose of acetaminophen is 4000 mg from all sources in 24 hours., Post-Op 0319 (Given - Provider: Mau Jackson) HYDROcodone-acetaminophe n [...] 1643, Until Vika 10/18/19 at 1421, Post-Op Senna (SENOKOT) 8.6 MG tablet 8.6 mg 8.6 mg, Oral, Daily as needed, Constipation, Starting on Tue10/15/19 at 1643, Until Vika 10/18/19 at 1421, Post-Op traMADol (ULTRAM) tablet 50 [...] Post-Op documented in this encounter Care Teams Personalized Living Manager Relationship Specialty Start Date End Date Ton Mercedes MD [address] [place] [phone] PCP - General FAMILY PRACTICE 10/27/15 12/02/21 Evaristo Allan MD [address] [place] [phone] [place] [employer] CARDIOVASCULAR DISEASE 08/19/16 Raul Santana MD [address] [place] [phone] CLINICAL CARDIAC ELECTROPHYSIOLOGY 06/16/17 Danny Steiner MD [address] [place] [address] ORTHOPAEDIC SURGERY 05/01/19 documented as of this encounter
--- OUTSIDE RECORDS SUMMARY | 2024-04-23 04:28 | XMS_ITS | Encounter Summary ---
Author Organization [facility] Address [address] [place] [address]. [place], [place] [address] [place] [address] Care Team Providers Care Business Development Professional Name Role Phone Vernon Mercedes MD Primary Care Provider [phone] Evaristo Allan MD Unavailable Unavailabl Raul Duran MD Unavailable Unavailabl Danny Lopes MD Unavailable [phone] Encounter Details Date Type Department Care Team (Latest Contact Info) Description 10/26/2019 Travel Social History Tobacco Use Types Packs/Day [...] st Contact Info) Description 04/25/2024 11:00 AM RESTROOMS OR LOUNGES MAID Appointment [facility] [address] [place] [address] Ti Bonilla MD [address] [place] [phone] 05/23/2024 3:30 PM RESTROOMS OR LOUNGES MAID Office Visit [facility] [address] [place] [phone] Jyoti Escobar MD [address] [place] [phone] documented as of this encounter Visit Diagnoses Not on filedocumented in this encounter Care Teams Business Development Professional Relationship Specialty Start Date End Date Vernon Mercedes MD [address] [place] [phone] PCP - General FAMILY PRACTICE 10/27/15 12/02/21 [place] [address] [place] Equipment Monitor Phototypesetting CARDIOVASCULAR DISEASE 08/19/16 Raul Santana MD [address] [place] [address] CLINICAL CARDIAC ELECTROPHYSIOLOGY 06/16/17 Danny Blackwell MD [address] [place] [address] ORTHOPAEDIC SURGERY 05/01/19 documented as of this encounter
--- OUTSIDE RECORDS SUMMARY | 2024-04-23 04:28 | XMS_ITS | Encounter Summary ---
Author Organization [facility] Address [address] [place] [address]. 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 No / Unsure 09/28/2019 1:38 PM CDT documented as of this encounter Plan of Treatment Upcoming Encounters Date Type Department Care Team (Late st Contact Info) Description 04/25/2024 11:00 AM CONTROL MANAGER Appointment [facility] [address] [place] [address] Ti Bonilla MD [address] [place] [phone] 05/23/2024 3:30 PM CONTROL MANAGER [facility] [address] [place] [address] Jyoti Escobar MD [address] [place] [address] documented as of this encounter Visit Diagnoses Not on filedocumented in this encounter Additional Health Concerns Infection Onset Date Last Indicated Resolved Time MRSA Comment:Negative MRSA 05/201903/11/2017 03/11/2017 10/03/2019 10:08 AM CDT documented as of this encounter Care Teams Nub Card Tender Relationship Specialty Start Date End Date Vernon Mercedes MD [address] [place] [address] PCP - General FAMILY PRACTICE 10/27/15 12/02/21 Evaristo Allan MD [address] [place] [address] [place] Canvas Cutter Hand CARDIOVASCULAR DISEASE 08/19/16 Raul Santana MD [address] [place] [address] CLINICAL CARDIAC ELECTROPHYSIOLOGY 06/16/17 Danny Blackwell MD [address] [place] [address] ORTHOPAEDIC SURGERY 05/01/19 documented as of this encounter
--- OUTSIDE RECORDS SUMMARY | 2024-04-23 04:28 | XMS_ITS | Encounter Summary ---
Author Organization [facility] Address [address] [place] [address]. 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 No / Unsure 08/22/2019 2:22 PM CDT documented as of this encounter Plan of Treatment Upcoming Encounters Date Type Department Care Team (Late st Contact Info) Description 04/25/2024 11:00 AM BOWLING BALL MOLD ASSEMBLER Appointment [facility] [address] [place] [address] Ti Bonilla MD [address] [place] [phone] 05/23/2024 3:30 PM BOWLING BALL MOLD ASSEMBLER [facility] [address] [place] [address] Jyoti Escobar MD [address] [place] [address] documented as of this encounter Visit Diagnoses Not on filedocumented in this encounter Additional Health Concerns Infection Onset Date Last Indicated Resolved Time MRSA Comment:Negative MRSA 05/201903/11/2017 03/11/2017 10/03/2019 10:08 AM CDT documented as of this encounter Care Teams Wool Hat Forming Machine Tender Relationship Specialty Start Date End Date Vernon Mercedes MD [address] [place] [address] PCP - General FAMILY PRACTICE 10/27/15 12/02/21 Evaristo Allan MD [address] [place] [address] [place] Sheepskin Pickler CARDIOVASCULAR DISEASE 08/19/16 Raul Santana MD [address] [place] [address] CLINICAL CARDIAC ELECTROPHYSIOLOGY 06/16/17 Danny Blackwell MD [address] [place] [address] ORTHOPAEDIC SURGERY 05/01/19 documented as of this encounter
--- OUTSIDE RECORDS SUMMARY | 2024-04-23 04:28 | XMS_ITS | Encounter Summary ---
Author Organization [facility] Address [address] [place] [address]. 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 [address] [place] [address] Ti Bonilla MD [address] [place] [address] 05/23/2024 3:30 PM STEEL CUTTER Office Visit [facility] [place] [address] Jyoti Escobar MD [address] [place] [address] documented as of this encounter Procedures Procedure Name Priority Date/Time Associated Diagnosis Comments ELECTROCARDIOGRAM (NON MIDMARK ACQUIRED) Routine 09/28/2019 1:52 PM CDT Essential hypertension documented in this encounter Results * ELECTROCARDIOGRAM (NON MIDMARK ACQUIRED) (09/28/2019 1:52 PM CDT) 09/28/2019 1:52 PM CDT Narrative [facility] - 10/02/2019 7:21 AM CDT ? [facility] ?[address] [place], [place] ??[address] ? Test Date: ?2019-09-28 Pat Name: ? ELZA MCKEON ? Department: ? Room: ? Gender: ? Male ? Sheet Combining Operator: ?? : ?1960 ? Requested By: ELZA ALLAN Order Number: [id number] ?Reading MD: ?? Elza Allan ? Measurements Intervals ?[place] ? Rate: ? 89 ? P: ?11 [place]: ? 103 ?QRS: ?37 QRSD: ? 110 ?T: ?28 QT: ? 350 ? QTc: ?426 ? Interpretive Statements SINUS RHYTHM WITH SINUS ARRHYTHMIA AND SHORT [place] INTERVAL INCOMPLETE RIGHT BUNDLE BRANCH BLOCK Procedure Note Elza Allan MD - 10/02/2019 [facility] [address] [place] [address] Test Date: 2019-09-28 Pat Name: ELZA MCKEON Department: Room: Gender: Male Sheet Combining Operator: : 1960 Requested By: ELZA ALLAN Order Number: [id number] Jose Antonio MD: Elza Allan Measurements Intervals [place] Rate: 89 P: 11 [place]: 103 QRS: 37 QRSD: 110 T: 28 QT: 350 QTc: 426 Interpretive Statements SINUS RHYTHM WITH SINUS ARRHYTHMIA AND SHORT [place] INTERVAL INCOMPLETE RIGHT BUNDLE BRANCH BLOCK us Elza Allan MD PROCEDURES-ORDERABLE NO LENO RGE Final Result [facility] [address] [place] [address] documented in this encounter Visit Diagnoses Diagnosis Essential hypertension- Primary Unspecified essential hypertension documented in this encounter Additional Health Concerns Infection Onset Date Last Indicated Resolved Time MRSA Comment:Negative MRSA 05/201903/11/2017 03/11/2017 10/03/2019 10:08 AM CDT documented as of this encounter Care Teams Roving Inspector Relationship Specialty Start Date End Date Vernon Mercedes MD [address] [place] [address] PCP - General FAMILY PRACTICE 10/27/15 12/02/21 Elza Allan MD [address] [place] [address] [place] Horticulture Superintendent CARDIOVASCULAR DISEASE 08/19/16 Raul Santana MD [address] [place] [address] CLINICAL CARDIAC ELECTROPHYSIOLOGY 06/16/17 Danny Blackwell MD [address] [place] [address] ORTHOPAEDIC SURGERY 05/01/19 documented as of this encounter
--- OUTSIDE RECORDS SUMMARY | 2024-04-23 04:28 | XMS_ITS | Encounter Summary ---
Author Organization [facility] Address [address] [place] [address]. [place], [place] [address] [place] [address] Care Team Providers Care Phlebotomy Lab Assistant Name Role Phone Vernon Mercedes MD Primary Care Provider [phone] Evaristo Allan MD Unavailable UnavailRaul Suresh MD Unavailable Unavailabl Danny Lopes MD Unavailable [phone] Encounter Details Date Type Department Care Team (Latest Contact Info) Description 09/21/2019 11:12 AM CDT - 09/21/2019 12:31 PM CDT Hospital Encounter [facility] [address] [place] [address] Danny Blackwell MD [address] [place] [address] Discharge Disposition: Home or Self [...] 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 12/29/2017 0 isosorbide mononitrate ER 30 MG 24 [...] st Contact Info) Description 04/25/2024 11:00 AM PREMIUM SERVICE REPRESENTATIVE Appointment [facility] [address] [place] [address] Ti Bonilla MD [address] [place] [phone] 05/23/2024 3:30 PM PREMIUM SERVICE REPRESENTATIVE Office Visit [facility] [address] [place] [phone] Jyoti Escobar MD [address] [place] [address]131 documented as of this encounter Procedures Procedure Name Priority Date/Time Associated Diagnosis Comments XR HIP VANITA 2V Routine 09/21/2019 11:32 AM CDT Bilateral hip pain XR KNEE STAND AP VANITA ONLY Routine 09/21/2019 11:32 AM CDT Right knee pain XR KNEE RT 2V Routine 09/21/2019 11:32 AM CDT Right knee pain documented in this encounter Results * XR HIP VANITA 2V (09/21/2019 11:32 AM CDT) Anatomical Region Laterality Modality Hip, Pelvis Radiographic Shannan ging 09/21/2019 12:4 4 PM CDT Impressions 09/21/2019 12:47 PM CDT IMPRESSION: No acute findings. ??Degenerative changes as described. Interpreted By: Matteo Buenrostro MD, 09/21/2019 12:44 PM Narrative 09/21/2019 12:47 PM CDT Examination: Pelvis and bilateral hips. Exam time: 1047 hours. Clinical history: Pain after a fall. Comparison: None. Technique: Weightbearing AP pelvis centered for the hips and weightbearing frog lateral right and left hip. Findings: No fracture, dislocation or other acute bony abnormality is identified. ??There are relatively symmetric moderate to marked degenerative changes manifested by joint space narrowing, subchondral sclerosis and femoroacetabular osteophyte formation. ??No other significant bone or joint abnormality is noted. ??Pelvic phleboliths are noted. ??The soft tissues are otherwise unremarkable. Procedure Note Matteo Buenrostro MD - 09/21/2019 Examination: Pelvis and bilateral hips. Exam time: 1047 hours. Clinical history: Pain after a fall. Comparison: None. Technique: Weightbearing AP pelvis centered for the hips and weightbearingfrog lateral right and left hip. Findings: No fracture, dislocation or other acute bony abnormality isidentified. There are relatively symmetric moderate to markeddegenerative changes manifested by joint space narrowing, subchondralsclerosis and femoroacetabular osteophyte formation. No other significantbone or joint abnormality is noted. Pelvic phleboliths are noted. Thesoft tissues are otherwise unremarkable. IMPRESSION: No acute findings. Degenerative changes as described. Interpreted By: Matteo Buenrostro MD, 09/21/2019 12:44 PM Danny Blackwell MD GENERAL IMAGING Final Result * XR KNEE STAND AP VANITA ONLY (09/21/2019 11:32 AM CDT) Anatomical Region Laterality Modality Knee Radiographic Shannan ging 09/21/2019 12:3 7 PM CDT Impressions 09/21/2019 12:42 PM CDT IMPRESSION: 1. ??No acute findings. 2. ??Persistent minimal joint effusion on the right. 3. ??Stable postoperative changes. Interpreted By: Matteo Buenrostro MD, 09/21/2019 12:37 PM Narrative 09/21/2019 12:42 PM CDT Examination: Bilateral knees. Exam time: 1051 hours. Clinical history: Right knee pain after a fall. ??Prior arthroplasty. Comparison: 04/25/2019. Technique: Bilateral weightbearing PA and sunrise and weightbearing lateral views on the right. Findings: No fracture, dislocation or other acute bony abnormality is identified. ??Arthroplasty on the right remains in place with the components in satisfactory alignment and position. ??Left knee arthroplasty remains in place with the components in stable alignment in single projection. ??Minimal right knee joint effusion persists. ??Changes presumably related to patellar tendon repair on the right are again evident. ??No other significant bone or joint abnormality is noted. ??The soft tissues are unremarkable. Procedure Note Matteo Buenrostro MD - 09/21/2019 Examination: Bilateral knees. Exam time: 1051 hours. Clinical history: Right knee pain after a fall. Prior arthroplasty. Comparison: 04/25/2019. Technique: Bilateral weightbearing PA and sunrise and weightbearinglateral views on the right. Findings: No fracture, dislocation or other acute bony abnormality isidentified. Arthroplasty on the right remains in place with thecomponents in satisfactory alignment and position. Left knee arthroplastyremains in place with the components in stable alignment in singleprojection. Minimal right knee joint effusion persists. Changespresumably related to patellar tendon repair on the right are againevident. No other significant bone or joint abnormality is noted. Thesoft tissues are unremarkable. IMPRESSION: 1. No acute findings. 2. Persistent minimal joint effusion on the right. 3. Stable postoperative changes. Interpreted By: Matteo Buenrostro MD, 09/21/2019 12:37 PM Danny Blackwell MD GENERAL IMAGING Final Result * XR KNEE RT 2V (09/21/2019 11:32 AM CDT) Anatomical Region Laterality Modality Knee Radiographic Shannan ging 09/21/2019 12:3 7 PM CDT Impressions 09/21/2019 12:42 PM CDT IMPRESSION: 1. ??No acute findings. 2. ??Persistent minimal joint effusion on the right. 3. ??Stable postoperative changes. Interpreted By: Matteo Buenrostro MD, 09/21/2019 12:37 PM Narrative 09/21/2019 12:42 PM CDT Examination: Bilateral knees. Exam time: 1051 hours. Clinical history: Right knee pain after a fall. ??Prior arthroplasty. Comparison: 04/25/2019. Technique: Bilateral weightbearing PA and sunrise and weightbearing lateral views on the right. Findings: No fracture, dislocation or other acute bony abnormality is identified. ??Arthroplasty on the right remains in place with the components in satisfactory alignment and position. ??Left knee arthroplasty remains in place with the components in stable alignment in single projection. ??Minimal right knee joint effusion persists. ??Changes presumably related to patellar tendon repair on the right are again evident. ??No other significant bone or joint abnormality is noted. ??The soft tissues are unremarkable. Procedure Note Matteo Buenrostro MD - 09/21/2019 Examination: Bilateral knees. Exam time: 1051 hours. Clinical history: Right knee pain after a fall. Prior arthroplasty. Comparison: 04/25/2019. Technique: Bilateral weightbearing PA and sunrise and weightbearinglateral views on the right. Findings: No fracture, dislocation or other acute bony abnormality isidentified. Arthroplasty on the right remains in place with thecomponents in satisfactory alignment and position. Left knee arthroplastyremains in place with the components in stable alignment in singleprojection. Minimal right knee joint effusion persists. Changespresumably related to patellar tendon repair on the right are againevident. No other significant bone or joint abnormality is noted. Thesoft tissues are unremarkable. IMPRESSION: 1. No acute findings. 2. Persistent minimal joint effusion on the right. 3. Stable postoperative changes. Interpreted By: Matteo Buenrostro MD, 09/21/2019 12:37 PM Danny Blackwell MD GENERAL IMAGING Final Result documented in this encounter Visit Diagnoses Diagnosis Bilateral hip pain Pain in joint, pelvic region and thigh Right knee pain Pain in joint, lower leg documented in this encounter Additional Health Concerns Infection Onset Date Last Indicated Resolved Time MRSA Comment:Negative MRSA 05/201903/11/2017 03/11/2017 10/03/2019 10:08 AM CDT documented as of this encounter Care Teams Phlebotomy Lab Assistant Relationship Specialty Start Date End Date Vernon Mercedes MD [address] [place] [phone] PCP - General FAMILY PRACTICE 10/27/15 12/02/21 [place] [address] [place] Director Market Research CARDIOVASCULAR DISEASE 08/19/16 [place] [address] CLINICAL CARDIAC ELECTROPHYSIOLOGY 06/16/17 Danny Blackwell MD [address] [place] [address] ORTHOPAEDIC SURGERY 05/01/19 documented as of this encounter
--- OUTSIDE RECORDS SUMMARY | 2024-04-23 04:28 | XMS_ITS | Encounter Summary ---
Author Organization [facility] Address [address] [place] [address]. 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 No / Unsure 09/28/2019 1:38 PM CDT documented as of this encounter Plan of Treatment Upcoming Encounters Date Type Department Care Team (Late Contact Info) Description 04/25/2024 11:00 AM PHYSICAL SECURITY ENGINEER Appointment [facility] [address] [place] [address] [address] iT Bonilla MD [address] [place] [address] 05/23/2024 3:30 PM PHYSICAL SECURITY ENGINEER [facility] [address] [place] [phone] Jyoti Escobar MD [address] [place] [address]141 documented as of this encounter Procedures Procedure Name Priority Date/Time Associated Diagnosis Comments OUTSIDE LAB (SCAN ORDER) Routine 08/22/2019 documented in this encounter Results * OUTSIDE LAB (08/22/2019) 08/22/2019 us Documents Scanned SCANNING Final Result Performing Organization Address City/State/[facility] Co de Phone Number [facility] documented in this encounter Visit Diagnoses Not on filedocumented in this encounter Additional Health Concerns Infection Onset Date Last Indicated Resolved Time MRSA Comment:Negative MRSA 05/201903/11/2017 03/11/2017 10/03/2019 10:08 AM CDT documented as of this encounter Care Teams Pheresis Nurse Relationship Specialty Start Date End Date Vernon Mercedes MD [address] [place] [address] PCP - General FAMILY PRACTICE 10/27/15 12/02/21 Evaristo Allan MD [address] [place] [address] [place] [employer] Casting Machine Operator CARDIOVASCULAR DISEASE 08/19/16 Raul Santana MD [address] [place] [address] CLINICAL CARDIAC ELECTROPHYSIOLOGY 06/16/17 Danny Blackwell MD [address] [place] [address] ORTHOPAEDIC SURGERY 05/01/19 documented as of this encounter
--- OUTSIDE RECORDS SUMMARY | 2024-04-23 04:28 | XMS_ITS | Encounter Summary ---
Author Organization [facility] Address [address] [place] [address]. [place], [place] [address] [place], [place] [id number] Care Team Providers Care Hide Examiner Name Role Phone Vernon Mercedes MD Primary Care Provider [phone] Evaristo Allan MD Unavailable UnavailRaul Suresh MD Unavailable Unavailabl e Danny Blackwell MD Unavailable [phone] Reason for Visit * Reason Onset Date Comments Surgical Clearance 09/21/2019 Dr. Allan Encounter Details Date Type Department Care Team (Latest Contact Info) Description 09/21/2019 Mis Documentation [facility] [address] [address] Danny Blackwell MD [address] [place] [address] Surgical Clearance (Dr. 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 No / Unsure 09/21/2019 10:49 AM CDT documented as of this encounter Progress Notes * RONA Benito - 09/21/2019 3:15 PM CDT I contacted Dr. Allan's office in order to verify if patient would need another appointment for cardiac clearance prior to his Revision of R TKA on 10/15/2019. I also want to verify the stoppage of Pradaxa prior to surgery. I was unable speak with his office, but I did speak with the call centernurse and message was routed to his office at this time asking for call back concerning above. -Brent Allan phone: [phone] documented in this encounter Plan of Treatment Upcoming Encounters Date Type Department Care Team (Late st Contact Info) Description 04/25/2024 11:00 AM MATHEMATICS IMPROVEMENT TEACHER Appointment [facility] [address] [place] [address] Ti Bonilla MD [address] [place] [phone] 05/23/2024 3:30 PM MATHEMATICS IMPROVEMENT TEACHER Office Visit [facility] [address] [place] [phone] Jyoti Escobar MD [address] [place] [phone] documented as of this encounter Visit Diagnoses Not on filedocumented in this encounter Additional Health Concerns Infection Onset Date Last Indicated Resolved Time MRSA Comment:Negative MRSA 05/201903/11/2017 03/11/2017 10/03/2019 10:08 AM CDT documented as of this encounter Care Teams Hide Examiner Relationship Specialty Start Date End Date Vernon Mercedes MD [address] [place] [phone] PCP - General FAMILY PRACTICE 10/27/15 12/02/21 Evaristo Allan MD [address] [place] [address] [place] Vessel Manager CARDIOVASCULAR DISEASE 08/19/16 Raul Santana MD [address] [place] [address] CLINICAL CARDIAC ELECTROPHYSIOLOGY 06/16/17 Danny Blackwell MD [address] [place] [address] ORTHOPAEDIC SURGERY 05/01/19 documented as of this encounter
--- OUTSIDE RECORDS SUMMARY | 2024-04-23 04:28 | XMS_ITS | Encounter Summary ---
Author Organization [facility] Address [address] [place] [address]. [place] [address] [place] [address] Care Team Providers Care Metal Numerical Control Programmer Name Role Phone Vernon Mercedes MD Primary Care Provider [phone] Evaristo Allan MD Unavailable UnavailRaul Surseh MD Unavailable Unavailabl Danny Lopes MD Unavailable [phone] Reason for Visit * Reason Onset Date Comments Appointment Request 09/24/2019 Encounter Details Date Type Department Care Team (Late st Contact Info) Description 09/24/2019 [facility] [address] [place] [address] Evaristo Allan MD Appointment Request [...] 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 No / Unsure 09/21/2019 10:49 AM CDT documented as of this encounter Progress Notes * Alice Russell RN - 09/25/2019 9:40 AM CDT Patient called to verify apt date ant time. Patient made aware that his apt is scheduled for 09/28/19 at 2:00 with Gayle Arce at [facility]. * Angela Clay RN - 09/24/2019 4:17 PM CDT Spoke with Kady. Appt scheduled. She will inform pt. * Mayra [place] LPN - 09/24/2019 1:52 PM CDT Kady from Dr. Blackwell's office calling to request an appt for cardiac clearance prior to right total knee revision scheduled on 10/15/2019. Also need recommendations on Pradaxa prior to surgery. documented in this encounter Plan of Treatment Upcoming Encounters Date Type Department Care Team (Late st Contact Info) Description 04/25/2024 11:00 AM GRAPHIC ARTS INSTRUCTOR Appointment [facility] [address] [place] [address] Ti Bonilla MD [address] [place] [phone] 05/23/2024 3:30 PM GRAPHIC ARTS INSTRUCTOR Office Visit [facility] [address] [place] [address] Jyoti Escobar MD [address] [place] [address] documented as of this encounter Visit Diagnoses Not on filedocumented in this encounter Additional Health Concerns Infection Onset Date Last Indicated Resolved Time MRSA Comment:Negative MRSA 05/201903/11/2017 03/11/2017 10/03/2019 10:08 AM CDT documented as of this encounter Care Teams Metal Numerical Control Programmer Relationship Specialty Start Date End Date Vernon Mercedes MD [address] [place] [address] PCP - General FAMILY PRACTICE 10/27/15 12/02/21 Evaristo Allan MD [address] [place] [address] [place] Mat Worker CARDIOVASCULAR DISEASE 08/19/16 Raul Santana MD [address] [place] [address] CLINICAL CARDIAC ELECTROPHYSIOLOGY 06/16/17 Danny Blackwell MD [address] [place] [address] ORTHOPAEDIC SURGERY 05/01/19 documented as of this encounter
--- OUTSIDE RECORDS SUMMARY | 2024-04-23 04:28 | XMS_ITS | Encounter Summary ---
Author Organization [facility] Address [address] [place] [address]. [place], [place] [address] [place] [address] Care Team Providers Care Coatings Inspector Name Role Phone Vernon Mercedes MD Primary Care Provider [phone] Evaristo Allan MD Unavailable Unavailabl Raul Duran MD Unavailable Unavailabl e Danny Blackwell MD Unavailable [phone] Reason for Referral * Surgical (Routine) - Closed Specialty Diagnoses / Procedures Referred By Charito ledbetter Referred To Contact Diagnoses [id number] Procedures Case request operating room: Revision RIGHT Total Knee ArthroplastyNate notifiedInpatient Danny Blackwell MD [address] [place] [address] Phone: tel: fax: Referral ID Status Reason Start Date Expiration Date Visits Re quested Visits Authorized [id number] Closed 09/21/2019 10/20/2020 1 1 Encounter Details Date Type Department Care Team (Late st Contact Info) Description 09/21/2019 Prep for Procedure [facility] [address], [facility] [address] [place] [address] Danny Blackwell MD [address] [place] [address] Social History Tobacco Use Types Packs/Day Years [...] 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 [...] Contact Info) Description 04/25/2024 11:00 AM SENIOR FINANCIAL REPORTING ACCOUNTANT Appointment [facility] [address] [place] [address] [place] [address] Ti Bonilla MD [address] [place] [phone] 05/23/2024 3:30 PM SENIOR FINANCIAL REPORTING ACCOUNTANT Office Visit [facility] [place] [address] Jyoti Escobar MD [address] [place] [address] Scheduled Orders Name Type Priority Associated Diagnoses Order Schedule Case request operating room: Revision RIGHT Total Knee ArthroplastyNate notifiedInpatient Case Request Routine Once for 1 Occurrences starting 09/21/2019 until 09/21/2019 documented as of this encounter Results * URINALYSIS WI REFLEX TO CULTURE (10/08/2019 9:40 AM CDT) COLOR (U) YELLOW 10/08/2019 9:52 AM CDT [facility] TRANSPARENCY CLEAR 10/08/2019 9:52 AM CDT [facility] SPECIFIC GRAVITY (U) 1.015 1.000 - 1.025 10/08/2019 9:52 AM CDT [facility] U PH 5.5 5.0 - 8.0 10/08/2019 9:52 AM CDT [facility] LEUKOCYTES (U) NEGATIVE NEGATIVE 10/08/2019 9:52 AM CDT [facility] NITRITES NEGATIVE NEGATIVE 10/08/2019 9:52 AM CDT [facility] PROTEIN (U) NEGATIVE NEGATIVE 10/08/2019 9:52 AM CDT [facility] URINE GLUCOSE NEGATIVE NEGATIVE 10/08/2019 9:52 AM CDT [facility] KETONES MG/DL (U) NEGATIVE NEGATIVE 10/08/2019 9:52 AM CDT [facility] UROBILINOGEN 0.2 <1.0 EU/DL 10/08/2019 9:52 AM CDT [facility] BILIRUBIN (U) NEGATIVE NEGATIVE 10/08/2019 9:52 AM CDT [facility] BLOOD (U) NEGATIVE NEGATIVE 10/08/2019 9:52 AM CDT [facility] WBC/HPF 0-5 0 - 5 /HPF 10/08/2019 9:52 AM CDT [facility] EPI/HPF FEW /LPF 10/08/2019 9:52 AM CDT [facility] CULTURE & SENSITIVITY INDICATED? NOT INDICATED 10/08/2019 9:52 AM CDT [facility] URINE SPECIMEN OBTAINED BY CLEAN CATCH PROCEDURE / Unknown 10/08/2019 9:40 AM CDT us Danny Blackwell MD URINE ORDERABLES Final Result Performing Organization Address [facility]/State/ZIP Co de Phone Number [facility] [address] [place] [address], * MRSA SCREENING (10/08/2019 9:36 AM CDT) SPECIMEN SOURCE RESPIRATORY, NOSE 10/08/2019 9:32 AM CDT [facility] MRSA BY PCR NASAL METHICILLIN RESISTANT STAPH AUREUS NOT DETECTED 10/08/2019 8:31 PM CDT [facility] NASAL STRUCTURE / Unknown 10/08/2019 9:36 AM CDT us Danny Blackwell MD MICROBIOLOGY - GENERAL ORDERAB LES Final Result [facility] [address] [place] [address], [place] [phone] [id number] [facility] [address] [place] [address], * (ABNORMAL) CBC W/DIFF AUTOMATED (10/08/2019 9:34 AM CDT) WBC 6.4 4.5 - 10.8 x10'3/uL 10/08/2019 9:43 AM CDT [facility] RBC 4.69 4.50 - 6.10 x10'6/uL 10/08/2019 9:43 AM CDT [facility] HGB 12.9(L) 13.0 - 18.0 G/DL 10/08/2019 9:43 AM CDT [facility] HCT 41.1 37.0 - 52.0 % 10/08/2019 9:43 AM CDT [facility] MCV 87.6 78.0 - 100.0 FL 10/08/2019 9:43 AM CDT [facility] MCH 27.5 27.0 - 31.0 PG 10/08/2019 9:43 AM CDT [facility] MCHC 31.4(L) 33.0 - 36.0 G/DL 10/08/2019 9:43 AM CDT [facility] RDW 14.2 11.5 - 14.5 % 10/08/2019 9:43 AM CDT [facility] PLT 260 150 - 350 x10'3/uL 10/08/2019 9:43 AM CDT [facility] MPV 11.3(H) 7.4 - 10.4 FL 10/08/2019 9:43 AM CDT [facility] DIFFERENTIAL COMMENT NORMAL REFERENCE RANGE NOT ESTABLISHED FOR THE PROPORTIONAL LEUKOCYTE DIFFERENTIAL. 10/08/2019 9:43 AM CDT [facility] SEG NEUTROPHILS 58.4 % 0 9:43 AM CDT [facility] LYMPHOCYTES 27.4 % 10/08/2019 9:43 AM CDT [facility] MONOCYTES 9.6 % 10/08/2019 9:43 AM CDT [facility] EOSINOPHILS 3.0 % 10/08/2019 9:43 AM CDT [facility] BASOPHILS 1.3 % 10/08/2019 9:43 AM CDT [facility] IMMATURE GRANS % 0.3 % 10/08/19 9:43 AM CDT [facility] NRBC 0.0 % 10/08/2019 9:43 AM CDT [facility] ABS. NEUTROPHILS 3.72 1.60 - 8.30 x10'3/uL 10/08/2019 9:43 AM CDT [facility] ABS. LYMPHOCYTES 1.74 0.80 - 4.70 x10'3/uL 10/08/2019 9:43 AM CDT [facility] ABS. MONOCYTES 0.61 0.00 - 1.50 x10'3/uL 10/08/2019 9:43 AM CDT [facility] ABS. EOSINOPHILS 0.19 0.00 - 0.40 x10'3/uL 10/08/2019 9:43 AM CDT [facility] ABS. BASOPHILS 0.08 0.00 - 0.20 x10'3/uL 10/08/2019 9:43 AM CDT [facility] ABS. IMMATURE GRANULOCYTES 0.02 0.00 - 0.03 x10'3/uL 10/08/2019 9:43 AM CDT [facility] ABS. NUCLEATED RBC'S 0.00 0.00 x10'3/uL 10/08/2019 9:43 AM CDT [facility] 10/08/2019 9:34 AM CDT us Danny Blackwell MD LABORATORY Final Result [facility] [address] [place] [address], * (ABNORMAL) BASIC METABOLIC PANEL (10/08/2019 9:34 AM CDT) [facility] SODIUM S/P/B 138 136 - 145 MMOL/L 10/08/2019 9:53 AM T [facility] POTASSIUM S/P/B 4.3 3.5 - 5.1 MMOL/L 10/08/2019 9:53 AM [facility] CHLORIDE S/P/B 103 98 - 107 MMOL/L 10/08/2019 9:53 AM T [facility] CO2 27.0 21.0 - 32.0 MMOL/L 10/08/2019 9:53 AM [facility] GLUCOSE 134(H) 70 - 99 MG/DL 10/08/2019 9:53 AM [facility] Comment: FASTING GLUCOSE 100 TO 125 MG/DL IS CONSISTENT WITH IMPAIRED FASTING GLUCOSE. FASTING GLUCOSE >125 MG/DL IS CONSISTENT WITH DIABETES. RANDOM GLUCOSE >200 MG/DL WITH HYPERGLYCEMIC SYMPTOMS IS CONSISTENT WITH DIABETES. PER ADA GUIDELINES BUN 13 6 - 24 MG/DL 10/08/2019 9:53 AM [facility] CREATININE S/P/B 0.91 0.70 - 1.30 MG/DL 10/08/2019 9:53 AM [facility] CALCIUM S/P/B 9.3 8.4 - 10.5 MG/DL 10/08/2019 9:53 AM [facility] ANION GAP 8.0 5.0 - 15.0 MMOL/L 10/08/2019 9:53 AM [facility] OSMOLALITY (CALC) 288 MOSM/KG 020 9:53 AM [facility] Comment:REFERENCE RANGE NOT ESTABLISHED EGFR NON-AFR. AMER. >90 >89 ML/MIN/1. 73 M2 10/08/2019 9:53 AM T [facility] EGFR AFR. AMER. >90 >89 ML/MIN/1. 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, initial encounter ([facility]) documented in this encounter Additional Health Concerns Infection Onset Date Last Indicated Resolved Time MRSA Comment:Negative MRSA 05/201903/11/2017 03/11/2017 10/03/2019 10:08 AM CDT documented as of this encounter Care Teams Coatings Inspector Relationship Specialty Start Date End Date Vernon Mercedes MD [address] [place] [address] PCP - General FAMILY PRACTICE 10/27/15 12/02/21 [place] [address] [employer] Signal Intelligence Analyst CARDIOVASCULAR DISEASE 08/19/16 Raul Santana MD [address] [address] CLINICAL CARDIAC ELECTROPHYSIOLOGY 06/16/17 Danny Blackwell MD [address] [place] [address] ORTHOPAEDIC SURGERY 05/01/19 documented as of this encounter
--- OUTSIDE RECORDS SUMMARY | 2024-04-23 04:28 | XMS_ITS | Encounter Summary ---
Author Organization [facility] Address [address] [place] [address]. 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 Yes 10/15/2019 4:47 PM CDT Kaylyn Cohen RN Ac tialisa * Question Answer Date of Assessment Author [...] or making decisions? No 10/15/2019 4:47 PM Kaylyn Rodriguez R N Active * Because of a physical, mental, or emotional condition, do you have serious difficulty concentrating, remembering, or making decisions? Answer Entry Date Author Status No 10/15/2019 4:47 PM Kaylyn Rodriguez RN Active documented in this encounter Plan of Treatment Upcoming Encounters Date Type Department Care Team (Late st Contact Info) Description 04/25/2024 11:00 AM BALLET PROFESSOR Appointment [facility] [place] [address] Ti Bonilla MD [address] [place] [phone] 05/23/2024 3:30 PM BALLET PROFESSOR Office Visit [facility] [address] [place] [address] Jyoti Escobar MD [address] [place] [address] documented as of this encounter Visit Diagnoses Not on filedocumented in this encounter Care Teams Web Marketing Strategist Relationship Specialty Start Date End Date Vernon Mercedes MD [address] [place] [address] PCP - General FAMILY PRACTICE 10/27/15 12/02/21 Evaristo Allan MD [address] [place] [address] [place] Machine Baster CARDIOVASCULAR DISEASE 08/19/16 Raul Santana MD [address] [place] [address] CLINICAL CARDIAC ELECTROPHYSIOLOGY 06/16/17 Danny Blackwell MD [address] [place] [address] ORTHOPAEDIC SURGERY 05/01/19 documented as of this encounter
--- OUTSIDE RECORDS SUMMARY | 2024-04-23 04:28 | XMS_ITS | Encounter Summary ---
Author Organization [facility] Address [address] [place] [address]. [place] [address] [place] [address] Care Team Providers Care Facility Maintenance Manager Name Role Phone Vernon Mercedes MD Primary Care Provider Evaristo Allan MD Unavailable UnavailRaul Suresh MD Unavailable Unavailabl Danny Lopes MD Unavailable [phone] Reason for Visit * Reason Onset Date Comments Surgical Clearance 09/21/2019 Encounter Details Date Type Department Care Team (Late st Contact Info) Description 09/21/2019 Telephone [email or web address] CARDIOVASCULAR Re-vinylS [facility] [address] [place] [address] Evaristo Allan MD Surgical Clearance Social History Tobacco Use Types Packs/Day Years [...] 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 No / Unsure 09/28/2019 1:38 PM CDT documented as of this encounter Progress Notes * Angela Clay RN - 09/24/2019 10:07 AM CDT Attempted to reach Kristin again. Left message to return call. * Angela Clay RN - 09/21/2019 4:07 PM CDT Spoke with Kristin. Pt last seen 02/2019. Will need to be seen again for preop risk assessment. Attempted to reach Kristin - placed on hold for significant amount of time. Will try again Tuesday. * Alice Russell RN - 09/21/2019 3:17 PM CDT Kristin with Dr. Blackwell called and is wanting to know if patient is needing to be seen prior to surgery and also is asking about pradaxa and recommendations to hold. Please call her back at [phone] documented in this encounter Plan of Treatment Upcoming Encounters Date Type Department Care Team (Late st Contact Info) Description 04/25/2024 11:00 AM EMBEDDED DEVELOPER Appointment [facility] [place] [address] Ti Bonilla MD [address] [place] [phone] 05/23/2024 3:30 PM EMBEDDED DEVELOPER Office Visit [facility] [address] [place] [address] Jyoti Escobar MD [address] [place] [address] documented as of this encounter Visit Diagnoses Not on filedocumented in this encounter Additional Health Concerns Infection Onset Date Last Indicated Resolved Time MRSA Comment:Negative MRSA 05/201903/11/2017 03/11/2017 10/03/2019 10:08 AM CDT documented as of this encounter Care Teams Facility Maintenance Manager Relationship Specialty Start Date End Date Vernon Mercedes MD [address] [place] [address] PCP - General FAMILY PRACTICE 10/27/15 12/02/21 Evaristo Allan MD [address] [place] [phone] [employer] Agriculture Technician CARDIOVASCULAR DISEASE 08/19/16 Raul Santana MD [address] [place] [address] CLINICAL CARDIAC ELECTROPHYSIOLOGY 06/16/17 Danny Blackwell MD [address] [place] [address] ORTHOPAEDIC SURGERY 05/01/19 documented as of this encounter
--- OUTSIDE RECORDS SUMMARY | 2024-04-23 04:28 | XMS_ITS | Encounter Summary ---
Author Organization [facility] Address [address] [place] [address]. [place], [place] [address] [place] [address] Care Team Providers Care Closing Coordinator Name Role Phone Vernon Mercedes MD Primary Care Provider [phone] Evaristo Allan MD Unavailable Unavailabl Raul Duran MD Unavailable Unavailabl e Danny Blackwell MD Unavailable Reason for Visit * Reason Onset Date Comments Medication 10/03/2019 Pradaxa Encounter Details Date Type Department Care Team (Late st Contact Info) Description 10/03/2019 Telephone [facility] [address], [place] [phone] Kady Vann vocational training director (Pradaxa) Social History Tobacco Use Types Packs/Day [...] 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 No / Unsure 09/28/2019 1:38 PM CDT documented as of this encounter Progress Notes * Kady Vann RN - 10/03/2019 9:44 AM CDT Patient aware of last dose of Pradaxa. He verbalizes understanding and denies any additional questions. documented in this encounter Plan of Treatment Upcoming Encounters Date Type Department Care Team (Late st Contact Info) Description 04/25/2024 11:00 AM TOOL GRINDING TECHNICIAN Appointment [facility] [address] [place] [address] Ti Bonilla MD [address] [place] [phone] 05/23/2024 3:30 PM TOOL GRINDING TECHNICIAN Office Visit [facility] [address] [place] [phone] Jyoti Escobar MD [address] [place] [address] documented as of this encounter Visit Diagnoses Not on filedocumented in this encounter Additional Health Concerns Infection Onset Date Last Indicated Resolved Time MRSA Comment:Negative MRSA 05/201903/11/2017 03/11/2017 10/03/2019 10:08 AM CDT documented as of this encounter Care Teams Closing Coordinator Relationship Specialty Start Date End Date Vernon Mercedes MD [address] [place] [address] PCP - General FAMILY PRACTICE 10/27/15 12/02/21 Evaristo Allan MD [address] [place] [address] [employer]in[employer] Grain Sacker CARDIOVASCULAR DISEASE 08/19/16 Raul Santana MD [address] [place] [address] CLINICAL CARDIAC ELECTROPHYSIOLOGY 06/16/17 Danny Blackwell MD [address] [place] [address] ORTHOPAEDIC SURGERY 05/01/19 documented as of this encounter
--- OUTSIDE RECORDS SUMMARY | 2024-04-23 04:28 | XMS_ITS | Encounter Summary ---
Author Organization [facility] Address [address] [place] [address]. 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 Not on [...] (Late Contact Info) Description 04/25/2024 11:00 AM SALVAGE CLERK Appointment [facility] [place] [address] Ti Bonilla MD [address] [place] [phone] 05/23/2024 3:30 PM SALVAGE CLERK Office Visit [facility] [place] [address] Jyoti Escobar MD [address] [place] [address] documented as of this encounter Results * (ABNORMAL) SED RATE, ERYTHROCYTE (ESR) (09/21/2019 12:42 PM CDT) Pathologist [facility] ESR 44(H) 0 - 20 MM/HR 09/21/2019 1:28 PM CDT [facility] Comment:NOTE: ANEMIA, IF PRE SENT, MAY CAUSE AN ELEVATED SEDIMENTATION RATE. 09/21/2019 12:4 2 PM CDT Danny Blackwell MD LABORATORY Final Result Performing Organization Address City/[facility]/ZIP Co de Phone Number [facility] [address] [place] [address], * C-REACTIVE PROTEIN (09/21/2019 12:42 PM CDT) Pathologist [facility] C-REACTIVE PROTEIN 0.14 <0.30 mg/dL 09/21/2019 1:00 PM CDT [facility] 09/21/2019 12:4 2 PM CDT us Danny Blackwell MD LABORATORY Final Result Performing Organization Address City/[facility]/ZIP Co de Phone Number [facility] [address] [place] [address], * (ABNORMAL) CBC W/DIFF AUTOMATED (09/21/2019 12:42 PM CDT) Pathologist [facility] WBC 7.5 4.5 - 10.8 x10'3/uL 09/21/2019 12:48 PM CDT [facility] RBC 4.81 4.50 - 6.10 x10'6/uL 09/21/2019 12:48 PM CDT [facility] HGB 13.2 13.0 - 18.0 G/DL 09/21/2019 12:48 PM CDT [facility] HCT 41.6 37.0 - 52.0 % 09/21/2019 12:48 PM CDT [facility] MCV 86.5 78.0 - 100.0 FL 09/21/2019 12:48 PM CDT [facility] MCH 27.4 27.0 - 31.0 PG 09/21/2019 12:48 PM CDT [facility] MCHC 31.7(L) 33.0 - 36.0 G/DL 09/21/2019 12:48 PM CDT [facility] RDW 13.8 11.5 - 14.5 % 09/21/2019 12:48 PM CDT [facility] PLT 288 150 - 350 x10'3/uL 09/21/2019 12:48 PM CDT [facility] MPV 11.3(H) 7.4 - 10.4 FL 09/21/2019 12:48 PM CDT [facility] DIFFERENTIAL COMMENT NORMAL REFERENCE RANGE NOT ESTABLISHED FOR THE PROPORTIONAL LEUKOCYTE DIFFERENTIAL. 09/21/2019 12:48 PM CDT [facility] SEG NEUTROPHILS 59.9 % 0 12:48 PM CDT [facility] LYMPHOCYTES 25.7 % 09/21/2019 12:48 PM CDT [facility] MONOCYTES 10.9 % 09/21/2019 12:48 PM CDT [facility] EOSINOPHILS 1.9 % 09/21/2019 12:48 PM CDT [facility] BASOPHILS 1.3 % 09/21/2019 12:48 PM CDT [facility] IMMATURE GRANS % 0.3 % 09/21/19 20 12:48 PM CDT [facility] NRBC 0.0 % 09/21/2019 12:48 PM CDT [facility] ABS. NEUTROPHILS 4.50 1.60 - 8.30 x10'3/uL 09/21/2019 12:48 PM CDT [facility] ABS. LYMPHOCYTES 1.93 0.80 - 4.70 x10'3/uL 09/21/2019 12:48 PM CDT [facility] ABS. MONOCYTES 0.82 0.00 - 1.50 x10'3/uL 09/21/2019 12:48 PM CDT [facility] ABS. EOSINOPHILS 0.14 0.00 - 0.40 x10'3/uL 09/21/2019 12:48 PM CDT [facility] ABS. BASOPHILS 0.10 0.00 - 0.20 x10'3/uL 09/21/2019 12:48 PM CDT [facility] ABS. IMMATURE GRANULOCYTES 0.02 0.00 - 0.03 x10'3/uL 09/21/2019 12:48 PM CDT [facility] ABS. NUCLEATED RBC'S 0.00 0.00 x10'3/uL 09/21/2019 12:48 PM CDT [facility] 09/21/2019 12:4 2 PM CDT Danny Blackwell MD LABORATORY Final Result [facility] [address] [place] [address], documented in this encounter Visit Diagnoses Diagnosis Prosthetic joint implant failure, subsequent encounter- Primary documented in this encounter Additional Health Concerns Infection Onset Date Last Indicated Resolved Time MRSA Comment:Negative MRSA 05/201903/11/2017 03/11/2017 10/03/2019 10:08 AM CDT documented as of this encounter Care Teams Pharmacist Aide Relationship Specialty Start Date End Date Vernon Mercedes MD [facility] [place] [phone] PCP - General FAMILY PRACTICE 10/27/15 12/02/21 Evaristo Allan MD [address] [place] [address] [place] Atm Mechanic CARDIOVASCULAR DISEASE 08/19/16 Raul Santana MD [address] [place] [address] CLINICAL CARDIAC ELECTROPHYSIOLOGY 06/16/17 Danny Blackwell MD [address]25 [place] [address] ORTHOPAEDIC SURGERY 05/01/19 documented as of this encounter
--- OUTSIDE RECORDS SUMMARY | 2024-04-23 04:28 | XMS_ITS | Encounter Summary ---
Author Organization [facility] Address [address] [place] [address]. 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 Not [...] st Contact Info) Description 04/25/2024 11:00 AM CONTINUOUS TOWEL ROLLER Appointment [facility] [address] [facility] [place] [address] iT Bonilla MD [address] [place] [phone] 05/23/2024 3:30 PM CONTINUOUS TOWEL ROLLER Office Visit [facility] [address] [facility] [place] [address] Jyoti Escobar MD [address] [place] [address] documented as of this encounter Results * (ABNORMAL) HEMOGLOBIN, GLYCOSYLATED (08/22/2019 2:35 PM CDT) HGB A1C 8.5(H) <5.7 % 08/22/2019 2:51 PM CDT [facility] Comment: 5.7 TO 6.4% INCREASED RISK OF DIABETES > OR = 6.5% CONSISTENT WITH DIABETES PER ADA GUIDELINES ESTIMATED AVG GLUCOSE 197(H) 70 - 140 MG/DL 08/22/2019 2:51 PM CDT [facility] 08/22/2019 2:35 PM CDT Vernon Mercedes MD LABORATORY Final Result [facility] [place] [address], documented in this encounter Visit Diagnoses Diagnosis Diabetes mellitus type 2, uncontrolled- Primary Type II or unspecified type diabetes mellitus without mention of complication, uncontrolled documented in this encounter Additional Health Concerns Infection Onset Date Last Indicated Resolved Time MRSA Comment:Negative MRSA 05/201903/11/2017 03/11/2017 10/03/2019 10:08 AM CDT documented as of this encounter Care Teams Team Assembly Line Machine Operator Relationship Specialty Start Date End Date Vernon Mercedes MD [address] [place] [address] PCP - General FAMILY PRACTICE 10/27/15 12/02/21 Evaristo Allan MD [address] [place] [address] [place] Clinical Documentation Consultant CARDIOVASCULAR DISEASE 08/19/16 Raul Santana MD [address] [place] [address] CLINICAL CARDIAC ELECTROPHYSIOLOGY 06/16/17 Danny Blackwell MD [address] [place], [place] [phone] ORTHOPAEDIC SURGERY 05/01/19 documented as of this encounter
--- OUTSIDE RECORDS SUMMARY | 2024-04-23 04:28 | XMS_ITS | Encounter Summary ---
Author Organization [facility] Address [address] [place] [address]. [place], [place] [address] [place] [address] Care Team Providers Care Disability Attorney Name Role Phone Vernon Mercedes MD Primary Care Provider [phone] Evaristo Allan MD Unavailable Unavailabl e Raul Santana MD Unavailable Unavailabl e Danny Blackwell MD Unavailable [phone] Reason for Visit * Reason Comments Jnt Pain/Knee * Physical Medicine (Routine) - Closed Specialty Diagnoses / Procedures Referred By Charito ledbetter Referred To Contact PHYSICAL THERAPY Diagnoses Prosthetic joint implant failure, subsequent encounter Aftercare following right knee joint replacement surgery Dari Piña FNP-[facility] [address] [place] [address] Phone: tel: fax: Referral ID Status Reason Start Date Expiration Date V isits Requested Visits Authorized [id number] Closed Physical Therapy 10/16/2019 11/14/2020 60 60 Encounter Details Date Type Department Care Team (Late st Contact Info) Description 10/26/2019 7:30 AM CDT - 10/26/2019 9:18 AM CDT Hospital Encounter [facility] [address] [place] [address] Dari Piña FNP-[facility] [address] [place] [address] Rossy Cardenas, DPT Jnt Pain/Knee Discharge Disposition: [...] 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 20 tablet 10/18/2019 0 oxyCODONE-acetaminop hen 5-325 MG [...] Progress Notes * Rossy Cardenas DPT - 10/26/2019 7:57 AM CDT [facility] PHYSICAL THERAPY TREATMENT NOTE Time In: 729 Time Out: 823 Total Time: 54 Name: Evaristo Zelaya : 1960 Past Medical [...] CATHETERIZATION 01/04/2018 occluded prox RCA w/well developed czuo-uj-tvrus collaterals lvef 55-60% ??? CARDIAC CATHETERIZATION 11/13/2018 ??? FRACTURE SURGERY ??? HERNIA REPAIR ??? KNEE ARTHROPLASTY Bilateral ??? LITHOTRIPSY ??? XA ABLATION 05/19/2016 ??? XA CORONARY INTERVENTION 03/24/2018 KNIFE CHANGER PCI-mid RCA Subjective: Diagnosis: R TKA Referring Physician: ISAURO Sarah Onset Date: 10/15/19 Treatment Day: 2 Total Approved Visits: 60 Therapy Plan of Care: 3x/wk for 4 wks Subjective Note: Patient reports he is sore from his initial evaluation. Continues to report that most of his pain is in the R quadricep. He reports adherence to HEP. Location of Pain: R knee Pre-treatment Pain: 10 Post-treatment Pain: 06/25 Restriction/Precaution: WBAT Objective: Treatment Performed: Therapeutic Exercise - 54482 Minutes Performed: 29 Intervention: - PROM flexion/extension - heelslide with strap x 10 - DKTC on peanut ball 2x10 - quad set 10 sec x10 - SAQ assisted x 5 - supine hip abduction x20 Manual Therapy - 35253 Minutes Performed: 10 Intervention: - IASTM to R quad Neuromuscular Reeducation - 10765 Minutes Performed: Intervention: Therapeutic Activities - 74193 Minutes Performed: Modalities Minutes Performed: 15 Intervention: - gameready to R knee x 15 min Total Treatment Time: 54 Education Performed: Educated patient to continue current HEP. ASSESSMENT: Patient is severely limited by pain and quadricep weakness. He requires maximal assistance to perform SAQ and moderate assistance to perform supine hip abduction. Patient was pushed in wheelchair today because he forgot his walker. Educated the patient of importance of bringing his walker to therapy to practice ambulation. PLAN: Plan for next visit: Continue range of motion and strengthening. documented in this encounter Plan of Treatment Upcoming Encounters Date Type Department Care Team (Late st Contact Info) Description 04/25/2024 11:00 AM MIXING AND DISPENSING SUPERVISOR Appointment [facility] [address] [place] [address] Ti Bonilla MD [address] [place] [phone] 05/23/2024 3:30 PM MIXING AND DISPENSING SUPERVISOR Office Visit [facility] [address] [place] [address] Jyoti Escobar MD [address] [place] [address] documented as of this encounter Visit Diagnoses Diagnosis Status post revision of total replacement of right knee documented in this encounter Care Teams Disability Attorney Relationship Specialty Start Date End Date Vernon Mercedes MD [address] [place] [phone] PCP - General FAMILY PRACTICE 10/27/15 12/02/21 [place] [address] [place] Mosaic Floor Layer CARDIOVASCULAR DISEASE 08/19/16 [place] [address] CLINICAL CARDIAC ELECTROPHYSIOLOGY 06/16/17 Danny Blackwell MD [address] [place] [address] ORTHOPAEDIC SURGERY 05/01/19 documented as of this encounter
--- OUTSIDE RECORDS SUMMARY | 2024-04-23 04:28 | XMS_ITS | Encounter Summary ---
Author Organization [facility] Address [address] [place] [address]. [place], [place] [address] [place] [address] Care Team Providers Care Faith Healer Name Role Phone Vernon Mercedes MD Primary Care Provider [phone] Evaristo Allan MD Unavailable Unavailabl Raul Duran MD Unavailable Unavailabl e Danny Blackwell MD Unavailable [phone] Reason for Visit * Reason Onset Date Comments Medication 09/21/2019 Encounter Details Date Type Department Care Team (Late st Contact Info) Description 09/21/2019 Telephone [facility] [address], [place] [phone] Kady Vann, certified professional controller Social History Tobacco Use Types Packs/Day Years [...] 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 No / Unsure 09/21/2019 10:49 AM CDT documented as of this encounter Progress Notes * Kady Vann RN - 09/21/2019 2:05 PM CDT ----- Message from Sana Sherman sent at 09/21/2019 2:01 PM CDT ----- Regarding: Medication Contact: Patient called and he was supposed to have medication sent to [facility] [place] after his appointment today. He called and it was not there. Thanks. documented in this encounter Plan of Treatment Upcoming Encounters Date Type Department Care Team (Late st Contact Info) Description 04/25/2024 11:[address] [facility] [address] [place] [address] Ti Bonilla MD [address] [place] [phone] 05/23/2024 3:30 PM QA TESTER Office Visit [facility] [address] [place] [phone] Jyoti Escobar MD [address] [place] [address] documented as of this encounter Visit Diagnoses Not on filedocumented in this encounter Additional Health Concerns Infection Onset Date Last Indicated Resolved Time MRSA Comment:Negative MRSA 05/201903/11/2017 03/11/2017 10/03/2019 10:08 AM CDT documented as of this encounter Care Teams Faith Healer Relationship Specialty Start Date End Date Vernon Mercedes [place] [phone] PCP - General FAMILY PRACTICE 10/27/15 12/02/21 Evaristo Allan [place] [address] [place] Interpretative Dancer CARDIOVASCULAR DISEASE 08/19/16 Raul Santana [place] [address] CLINICAL CARDIAC ELECTROPHYSIOLOGY 06/16/17 Danny Blackwell MD [address] [place] [address] ORTHOPAEDIC SURGERY 05/01/19 documented as of this encounter
--- OUTSIDE RECORDS SUMMARY | 2024-04-23 04:28 | XMS_ITS | Encounter Summary ---
Author Organization [facility] Address [address] [place] [address]. [place], [place] [address] [place] [address] Care Team Providers Care Emergency Crew Supervisor Name Role Phone Vernon Mercedes MD Primary Care Provider [phone] Evaristo Allan MD Unavailable UnavailRaul Suresh MD Unavailable Unavailabl Danny Lopes MD Unavailable [phone] Encounter Details Date Type Department Care Team (Latest Contact Info) Description 10/12/2019 6:34 AM CDT - 10/12/2019 11:59 PM CDT Hospital Encounter [facility] 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 No / Unsure 10/12/2019 6:34 AM CDT documented as of this encounter [...] mouth 3 (three) times daily. 02/06/2018 4 HYDROcodone-acetamin ophen (NORCO) 5-325 MG tabletIndications:Ch ronic [...] (six) hours as needed for Pain. 0 documented as of this encounter Plan of Treatment Upcoming Encounters Date Type Department Care Team (Late st Contact Info) Description 04/25/2024 11:00 AM LUMBER SALVAGER Appointment [facility] [address] [facility] [place] [address] Ti Bonilla MD [address] [place] [phone] 05/23/2024 3:30 PM LUMBER SALVAGER Office Visit [facility] [address] [place] [address] Jyoti Escobar MD [address] [place] [phone] documented as of this encounter Procedures Procedure Name Priority Date/Time Associated Diagnosis Comments CORONAVIRUS (COVID 19) Routine 10/12/2019 6:42 AM CDT Pre-operative laboratory examination documented in this encounter Results * CORONAVIRUS (COVID 19) [facility] (10/12/2019 6:42 AM CDT) CORONAVIRUS SARS COV 2 PCR (RESP) NOT DETECTED NOT DETECTED 10/13/2019 9:43 PM CDT [facility] Comment: A Not Detected (negative) test [...] providers and patients using the following websites: https://www.[employer]ire[employer]/home/Covid-19/HCP/NAAT/fact-sheet2 https://www.[employer]irec/home/Covid-19/Patients/NAAT/ fact-sheet2 This test has been authorized by the FDA under an Emergency Use Authorization (EUA) for use by authorized laboratories. Due to the current public health emergency, [facility] is receiving a high volume of samples [...] about COVID-19 can be found at the [employer] website: www.[employer].Airec/Covid19. Test performed at [facility] [address] [place], [place] ??[address] Director: VIRGILIO MONSON DO,MPH NASOPHARYNGEAL SWAB / Unknown 10/12/2019 6:42 AM CDT us Danny Blackwell MD MICROBIOLOGY - GENERAL ORDERAB LES Final Result [facility] [address] [place] [address], documented in this encounter Visit Diagnoses Diagnosis Pre-operative laboratory examination Pre-procedural laboratory examination documented in this encounter Additional Health Concerns Infection Onset Date Last Indicated Resolved Time COVID-19 Rule Out 10/12/2019 10/12/2019 10/13/2019 9:43 PM CDT documented as of this encounter Care Teams Emergency Crew Supervisor Relationship Specialty Start Date End Date Vernon Mercedes MD [address] [place] [phone] PCP - General FAMILY PRACTICE 10/27/15 12/02/21 Evaristo Allan MD [address] [place] [phone] [place] [employer] Trap CARDIOVASCULAR DISEASE 08/19/16 Raul Santana MD [address] [place] [phone] CLINICAL CARDIAC ELECTROPHYSIOLOGY 06/16/17 Danny Blackwell MD [address] [place], [place] [phone] ORTHOPAEDIC SURGERY 05/01/19 documented as of this encounter
--- OUTSIDE RECORDS SUMMARY | 2024-04-23 04:28 | XMS_ITS | Encounter Summary ---
Author Organization [facility] Address [address] [place] [address]. [place] [address] [place] [address] Care Team Providers Care Lithograph Press Feeder Name Role Phone Vernon Delgado MD Primary Care Provider [phone] Evaristo Allan MD Unavailable Unavailabl Raul Duran MD Unavailable Unavailabl Danny Lopes MD Unavailable [phone] Reason for Visit * Reason Comments Consult preop evaluation [place]ak[place] or to knee replacement Encounter Details Date Type Department Care Team (Latest Contact Info) Description 09/28/2019 2:00 PM CDT Office Visit [facility] [address] [place] [address] Gayle Arce, BARBARA, COUNTY MANAGER-C [address] [facility] [address] [place] [address] Consult (preop evaluation prior to knee replacement) Social History Tobacco Use Types Packs/Day Years [...] 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 No / Unsure 09/28/2019 1:38 PM CDT documented as of this encounter Last Filed Vital Signs Vital Sign Reading Time Taken Comments Blood Pressure 112/64 09/28/2019 1:57 PM CDT Pulse 89 09/28/2019 1:57 PM CDT Temperature - - Respiratory Rate 18 09/28/2019 1:57 PM CDT Oxygen Saturation - - Inhaled Oxygen Concentration - - Weight 125.1 kg (275 lb 12.8 oz) 09/28/2019 1:57 PM CDT Height 180.3 cm (5' 11 ) 09/28/2019 1:57 PM CDT Body Mass Index 38.47 09/28/2019 1:57 PM CDT documented in this encounter Patient Instructions * Patient Instructions* Gayle Arce APRN, NP-C - 09/28/2019 2:00 PM CDT 1. Stop Pradaxa 2-3 days prior to surgery. Dr. Blackwell will tell you when you can restart after surgery. 2. No interruption to aspirin. 3. The morning of surgery, take metoprolol and atorvastatin. Other meds to the discretion of Dr. Blackwell. documented in this encounter Progress Notes * Gayle Arce APRN, NP-C - 09/28/2019 2:00 PM CDT FROM: Gayle Arce APRN, NP-C, collaborating physician Evaristo Allan III, M.D. RE: Evaristo Zelaya : 1960 Reason for Visit: Consult (preop evaluation prior to knee replacement) History of Present Illness: Mr. Zelaya is a pleasant 59-year-old male seen in the cardiology clinic today for a preoperative cardiovascular risk assessment prior to undergoing a right knee replacement by Dr. Blackwell at [facility] on 10/15/19. He has a history of coronary artery disease s/p SOLUTION SALES SENIOR EXECUTIVE PCI on 03/24/18, atrial fibrillation s/p ablation in 2017, hypertension, hyperlipidemia, diabetes, and sleep apnea. He reports that heis doing reasonably well from a cardiac standpoint. He denies any anginal chest pain, shortness of breath, or dyspnea upon exertion. He tells me that he is able to walk 2 blocks without exertional difficulty. He denies any claudication. He denies any overt symptoms of congestive heart failure such as paroxysmal nocturnal dyspnea, orthopnea, or worsening pedal edema. He reports good CPAP compliance. He has palpitations, occurring every 1 to 2 days,lasting 20 to 30 seconds. This has been stable. He denies any lightheadedness or syncope. He deniessigns and symptoms of CVA or TIA. He seems to be tolerating his present medications well without reported side effects. He denies signs of bleeding. Evaluation during the clinic visit included an EKG which confirmed the presence of sinus rhythm at a rate of 89 beats per minute with an incomplete right bundle branch block. Recommendations/Plan: Mr. Durand cardiac status appears clinically stable at the [...] 4 METs of activity without exertional symptoms. His planned knee replacement is an intermediate risk procedure from a cardiovascular standpoint. I believe that his cardiovascular risk of the procedure is only mildly increased in light of his knowncoronary artery disease, atrial fibrillation, hypertension, diabetes. This mildly increased cardiova scular risk is felt to be acceptable in light of the overall clinical situation. At the time of surgery, I would recommend the followin. Perioperative telemetry monitoring. 2. Discontinuation of Pradaxa 2 to 3 days prior to the procedure. Dr. Blackwell will resume postoperatively when safe from a bleeding standpoint. 3. Continuing low-dose aspirin without interruption due to his SOLUTION SALES SENIOR EXECUTIVE PCI in 2018. 4. Perioperative maintenance of beta blockade and statin therapy. 5. Maintenance of a serum hemoglobin of 8.0 or greater. From a shelter standpoint, I have recommended to Mr. Zelaya: [...] cholesterol of less than 70 is recommended. I have asked him to return to the cardiology clinic for routine followup in one year. I have encouraged him to contact me in the meantime should he have any questions or problems. Medications: Current Outpatient Medications: ??? metoprolol succinate ER 50 MG 24 hr tablet, Take 50 mg by mouth daily., Disp: , Rfl: ??? amitriptyline 50 MG tablet, Take 50 [...] daily. , Disp: , Rfl: ??? HYDROcodone-acetaminophen (NORCO) 5-325 MG tablet, Take 1 tablet by mouth every 6 (six) hours as needed for Pain. Indications: Chronic Pain, Disp: 30 tablet, Rfl: 0 ??? isosorbide mononitrate ER 30 MG 24 [...] as needed for Pain., Disp: , Rfl: Allergies Allergen Reactions ??? [...] CATHETERIZATION 01/04/2018 occluded prox RCA w/well developed eozy-lv-xukio collaterals lvef 55-60% ??? CARDIAC CATHETERIZATION 11/13/2018 ??? FRACTURE SURGERY ??? HERNIA REPAIR ??? KNEE ARTHROPLASTY ??? LITHOTRIPSY ??? XA ABLATION 05/19/2016 ??? XA CORONARY INTERVENTION 03/24/2018 SOLUTION SALES SENIOR EXECUTIVE PCI-mid RCA Social History Tobacco Use ??? Smoking status: Never Smoker ??? Smokeless tobacco: Never Used Substance Use Topics ??? Alcohol use: Yes ??? Drug use: No Family History Problem Relation Name Age of Onset ??? Hypertension Mother ??? Hypertension Sister ??? No Known Problems Father Family Status Relation Name Status ??? Mother Alive ??? Sister Alive ??? Brother Alive ??? Brother ??? Sister Alive ??? Father cancer Review of Systems Constitutional: Negative for recent unintentional weight gain, recent unintentional weight loss andnew or significant fatigue. HENT: Negative for new or significant hearing loss. Eyes: Negative for blurred vision and double vision. Respiratory: Negative for cough, new or significant shortness of breath and snoring. Cardiovascular: See HPI Positive for palpitations. Gastrointestinal: Negative for blood in stool and melena. Genitourinary: Negative for dysuria. Musculoskeletal: Negative for myalgias and new or worsening joint stiffness/pain. Skin: Negative for rash. Neurological: Negative for tingling/numbness and focal weakness. Endo/Heme/Allergies: Negative for new or significant bruising/bleeding and polydipsia. Psychiatric/Behavioral: Negative for depression and new or significant memory loss. Vitals: 09/28/19 1357 BP: 112/64 BP Location: Right arm Pulse: 89 Weight: 125.1 kg (275 lb 12.8 oz) Height: 5' 11 (1.803 m) Body mass index is 38.47 kg/m??. Physical Exam Rate/Rhythm: regular rhythm and normal rate . Heart Sounds: normal heart sounds, normal S1 and normal S2 no gallop, no S3 sound, no S4 sound and no murmur. . PMI: PMI not displaced. Pulses: normal pulses Right Carotid pulses 2+, Left Carotid pulses 2+, Right DP pulses 2+, Left DP pulses 2+, Right PT pulses 2+Left PT Pulses 2+, Constitutional: healthy appearance not distressed. . Neck: neck supple no JVD. . Pulmonary/Chest Wall: effort normal and breath sounds normal . HEENT: teeth/gums normal and oropharynx clear and moist. . Abdomen: No tenderness. no mass. no hepatomegaly. No splenomegaly. Abdominal aorta not palpably enlarged. No abdominal aortic bruit. . Eyes: conjunctivae normal. Neurological: alert, oriented x 3 and appropriate for situation, . Skin: dry and warm no cyanosis and no clubbing. Musculoskeletal: no kyphosis Cardiovascular Comments: Trace BLE edema. Diagnoses/Impression: 1. Preoperative cardiovascular examination 2. Coronary artery disease involving solomon coronary artery of solomon heart without angina pectoris 3. Paroxysmal atrial fibrillation (CMS/HCC) 4. Essential hypertension 5. Hyperlipidemia, unspecified hyperlipidemia type [place] Documentation Completed: Atrial Fibrillation Coronary Artery Disease Referring Provider: No ref. provider found PCP: VERNON DELGADO MD documented in this encounter Plan of Treatment Upcoming Encounters Date Type Department Care Team (Late st Contact Info) Description 04/25/2024 11:00 AM [address] [facility] [address] [place] [address] Ti Bonilla MD [address] [place] [phone] 05/23/2024 3:30 PM NAIL WELTER Office Visit [facility] [address] [place] [address] Jyoti Escobar MD [address] [place] [address] [phone] documented as of this encounter Visit Diagnoses Diagnosis Preoperative cardiovascular examination Pre-operative cardiovascular examination Coronary artery disease involving solomon coronary artery of solomon heart without angina pectoris Paroxysmal atrial fibrillation ([facility]) Atrial fibrillation Essential hypertension Unspecified essential hypertension Hyperlipidemia, unspecified hyperlipidemia type documented in this encounter Additional Health Concerns Infection Onset Date Last Indicated Resolved Time MRSA Comment:Negative MRSA 05/201903/11/2017 03/11/2017 10/03/2019 10:08 AM CDT documented as of this encounter Care Teams Lithograph Press Feeder Relationship Specialty Start Date End Date Vernon Delgado MD [address] [place] [phone] PCP - General FAMILY PRACTICE 10/27/15 12/02/21 Evaristo Allan MD [address] [place] [address] [place] Bladder Trimmer CARDIOVASCULAR DISEASE 08/19/16 Raul Santana MD [address] [place] [address] CLINICAL CARDIAC ELECTROPHYSIOLOGY 06/16/17 Danny Blackwell MD [address] [place] [address] ORTHOPAEDIC SURGERY 05/01/19 documented as of this encounter
--- OUTSIDE RECORDS SUMMARY | 2024-04-23 04:28 | XMS_ITS | Encounter Summary ---
Author Organization [facility] Address [address] [place] [address]. [place], [place] [address] [place] [address] Care Team Providers Care Catcher Filter Tip Name Role Phone Vernon Mercedes MD Primary Care Provider [phone] Evaristo Allan MD Unavailable Unavailabl Raul Duran MD Unavailable Unavailabl e Danny Blackwell MD Unavailable [phone] Encounter Details Date Type Department Care Team (Latest Contact Info) Description 10/12/2019 Travel Social History Tobacco Use Types Packs/Day [...] st Contact Info) Description 04/25/2024 11:00 AM MEDICAID SERVICE COORDINATOR Appointment [facility] [address] [place] [address] Ti Bonilla MD [address] [place] [phone] 05/23/2024 3:30 PM MEDICAID SERVICE COORDINATOR [facility] [address] [place] [address] Jyoti Escobar MD [address] [place] [address] documented as of this encounter Visit Diagnoses Not on filedocumented in this encounter Additional Health Concerns Infection Onset Date Last Indicated Resolved Time COVID-19 Rule Out 10/12/2019 10/12/2019 10/13/2019 9:43 PM CDT documented as of this encounter Care Teams Catcher Filter Tip Relationship Specialty Start Date End Date Vernon Mercedes MD [address] [place] [address] PCP - General FAMILY PRACTICE 10/27/15 12/02/21 Evaristo Allan MD [address] [place] [address] [place] Field Service Analyst CARDIOVASCULAR DISEASE 08/19/16 Raul Santana MD [address] [place] [address] CLINICAL CARDIAC ELECTROPHYSIOLOGY 06/16/17 Danny Blackwell MD [address] [place] [address] ORTHOPAEDIC SURGERY 05/01/19 documented as of this encounter
--- OUTSIDE RECORDS SUMMARY | 2024-04-23 04:28 | XMS_ITS | Encounter Summary ---
Author Organization [facility] Address [address] [place] [address]. [place], [place] [address] [place] [address] Care Team Providers Care Infantry Indirect Fire Crewmember Name Role Phone Vernon Mercedes MD Primary Care Provider [phone] Evaristo Allan MD Unavailable Unavailabl Raul Duran MD Unavailable Unavailabl e Dnany Blackwell MD Unavailable [phone] Reason for Visit * Reason Comments Knee Injury RIGHT DOI:09/07/2019 Hip Injury LEFT 09/16/2019 Encounter Details Date Type Department Care Team (Latest Contact Info) Description 09/21/2019 11:15 AM CDT Office Visit [facility] [address] [address] Danny Blackwell MD [address] [place] [address] Knee Injury (RIGHT DOI:09/07/2019); Hip Injury (LEFT 09/16/2019) Social History Tobacco Use Types Packs/Day Years [...] 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 Paroxysmal atrial fibrillation (CMS/HCC) ??? intermediate current use of anticoagulant therapy ??? Obstructive sleep apnea ??? Hyperlipidemia ??? Diabetes (CMS/HCC) ??? Coronary artery disease of [place] artery of [place] heart with stable angina pectoris (CMS/HCC) ??? 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 Cardiovascular stress test abnormal ??? Arthritis of knee ??? Derangement of medial meniscus, left ??? Encounter for follow-up examination after completed treatment for conditions other than malignant neoplasm ??? Heartburn ??? Knee pain ??? Mechanical complication of internal orthopedic device, implant or graft, initial encounter (CMS/HCC) ??? Patella-femoral syndrome ??? Pes anserine bursitis ??? Recurrent ventral incisional hernia ??? Abdominal pain ??? Failure of total knee replacement, initial encounter (CMS/HCC) ??? S/P coronary artery stent placement History: [...] CATHETERIZATION 01/04/2018 occluded prox RCA w/well developed [id number]-[id number] collaterals lvef 55-60% ??? FRACTURE SURGERY ??? HERNIA REPAIR ??? KNEE ARTHROPLASTY ??? LITHOTRIPSY ??? XA ABLATION 05/19/2016 ??? XA CORONARY INTERVENTION 03/24/[address] Cleary Family History Problem Relation Name [...] Not on file Occupational History ??? 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 Financial resource strain: Not [...] file Gets together: Not on file Attends mandaen service: Not on file Active member of [...] at bedtime. , Disp: , Rfl: ??? 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 DANNY BLACKWELL MD documented in this encounter Plan of Treatment Upcoming Encounters Date Type Department Care Team (Late st Contact Info) Description 04/25/2024 11:00 AM CAMELID FIBER SORTER Appointment [facility] [address] [place] [address] [place] [address] Ti Bonilla MD [address] [place] [phone] 05/23/2024 3:30 PM CAMELID FIBER SORTER Office Visit [facility] [address] [place] [phone] Jyoti Escobar MD [address] [place] [phone] documented as of this encounter Results * [...] this encounter Visit Diagnoses Diagnosis Bilateral hip pain- Primary Pain in joint, pelvic region and thigh Prosthetic joint implant failure, subsequent encounter intermediate current use of anticoagulant therapy Trochanteric bursitis of left hip Enthesopathy of hip region Bilateral hip pain Pain in joint, pelvic region and thigh Right knee pain Pain in joint, lower leg documented in this encounter Administered Medications Inactive Administered Medications - up to 3 most recent administrations Medication Order MAR Action Action Date Dose Rate Site lidocaine (XYLOCAINE) 1 % injection SOLN 8 mL 8 mL, Other, Once, 1 dose, On Tue09/21/19 at 1230 Given 09/21/2019 12:05 PM CDT 8 mLs methylPREDNISolone acetate (DEPO-Medrol) injection 80 mg 80 mg, Other, Once, 1 dose, On Tue09/21/19 at 1230, Shake Well Given 09/21/2019 12:05 PM CDT 80 mg documented in this encounter Additional Health Concerns Infection Onset Date Last Indicated Resolved Time MRSA Comment:Negative MRSA 05/201903/11/2017 03/11/2017 10/03/2019 10:08 AM CDT documented as of this encounter Care Teams Infantry Indirect Fire Crewmember Relationship Specialty Start Date End Date Vernon Mercedes MD [address] [place] [address] PCP - General FAMILY PRACTICE 10/27/15 12/02/21 Evaristo Allan MD [address] [place] [address] [place] Potato Spotter CARDIOVASCULAR DISEASE 08/19/16 Raul Santana MD [address] [place] [address] CLINICAL CARDIAC ELECTROPHYSIOLOGY 06/16/17 Danny Blackwell MD [address] [place] [address] ORTHOPAEDIC SURGERY 05/01/19 documented as of this encounter
--- OUTSIDE RECORDS SUMMARY | 2024-04-23 04:28 | XMS_ITS | Encounter Summary ---
Author Organization [facility] Address [address] [place] [address]. [place], [place] [address] [place] [address] Care Team Providers Care Bath Steward/Stewardess Name Role Phone Vernon Mercedes MD Primary Care Provider [phone] Evaristo Allan MD Unavailable UnavailRaul Suresh MD Unavailable Unavailabl Danny Lopes MD Unavailable [phone] Encounter Details Date Type Department Care Team (Latest Contact Info) Description 10/08/2019 9:25 AM CDT - 10/08/2019 11:59 PM CDT Hospital Encounter [facility] [address] [facility] [place] [address] Danny Blackwell MD [address] [place] [address] Discharge Disposition: Home or Self [...] st Contact Info) Description 04/25/2024 11:00 AM DISBURSING AGENT Appointment [facility] [address] [facility] [place] [address] Ti Bonilla MD [address] [place] [phone] 05/23/2024 3:30 PM DISBURSING AGENT Office Visit [facility] [address] [place] [address] Jyoti Escobar MD [address] [place] [phone] documented as of this encounter Procedures Procedure Name Priority Date/Time Associated Diagnosis Comments URINALYSIS WI REFLEX TO CULTURE Routine 10/08/2019 9:40 AM CDT Prosthetic joint implant failure, 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, initial encounter MRSA SCREENING Routine 10/08/2019 9:36 AM CDT Prosthetic joint implant failure, 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, initial encounter HEMOGLOBIN, GLYCOSYLATED Routine 10/08/2019 9:34 AM CDT Diabetes ([facility] HHS/HCC) BASIC METABOLIC PANEL Routine 10/08/2019 9:34 AM CDT Prosthetic joint implant failure, 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, initial encounter CBC W/DIFF AUTOMATED Routine 10/08/2019 9:34 AM CDT Prosthetic joint implant failure, 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, initial encounter documented in this encounter Results * URINALYSIS WI REFLEX TO CULTURE (10/08/2019 9:40 AM CDT) COLOR (U) YELLOW 10/08/2019 9:52 AM CDT [facility] TRANSPARENCY CLEAR 10/08/2019 9:52 AM CDT [facility] SPECIFIC GRAVITY (U) 1.015 1.000 - 1.025 10/08/2019 9:52 AM CDT [facility] U PH 5.5 5.0 - 8.0 10/08/2019 9:52 AM CDT [facility] LEUKOCYTES (U) NEGATIVE NEGATIVE 10/08/2019 9:52 AM CDT [facility] NITRITES NEGATIVE NEGATIVE 10/08/2019 9:52 AM CDT [facility] PROTEIN (U) NEGATIVE NEGATIVE 10/08/2019 9:52 AM CDT [facility] URINE GLUCOSE NEGATIVE NEGATIVE 10/08/2019 9:52 AM CDT [facility] KETONES MG/DL (U) NEGATIVE NEGATIVE 10/08/2019 9:52 AM CDT [facility] UROBILINOGEN 0.2 <1.0 EU/DL 10/08/2019 9:52 AM CDT [facility] BILIRUBIN (U) NEGATIVE NEGATIVE 10/08/2019 9:52 AM CDT [facility] BLOOD (U) NEGATIVE NEGATIVE 10/08/2019 9:52 AM CDT [facility] WBC/HPF 0-5 0 - 5 /HPF 10/08/2019 9:52 AM CDT [facility] EPI/HPF FEW /LPF 10/08/2019 9:52 AM CDT [facility] CULTURE & SENSITIVITY INDICATED? NOT INDICATED 10/08/2019 9:52 AM CDT [facility] URINE SPECIMEN OBTAINED BY CLEAN CATCH PROCEDURE / Unknown 10/08/2019 9:40 AM CDT us Danny Blackwell MD URINE ORDERABLES Final Result Performing Organization Address City/[facility]/ZIP Co de Phone Number [facility] [address] [place] [address], * MRSA SCREENING (10/08/2019 9:36 AM CDT) SPECIMEN SOURCE RESPIRATORY, NOSE 10/08/2019 9:32 AM CDT [facility] MRSA BY PCR NASAL METHICILLIN RESISTANT STAPH AUREUS NOT DETECTED 10/08/2019 8:31 PM CDT [facility] NASAL STRUCTURE / Unknown 10/08/2019 9:36 AM CDT us Danny Blackwell MD MICROBIOLOGY - GENERAL ORDERAB LES Final Result Performing Organization Address City/[facility] Co de Phone Number [facility] [address] [place] [address], [phone] [facility] [address] [place] [address], * (ABNORMAL) HEMOGLOBIN, GLYCOSYLATED (10/08/2019 9:34 AM CDT) HGB A1C 8.7(H) <5.7 % 10/08/2019 3:36 PM CDT [facility] Comment: 5.7 TO 6.4% INCREASED RISK OF DIABETES > OR = 6.5% CONSISTENT WITH DIABETES PER ADA GUIDELINES ESTIMATED AVG GLUCOSE 203(H) 70 - 140 MG/DL 10/08/2019 3:36 PM CDT [facility] 10/08/2019 9:34 AM CDT Danny Blackwell MD LABORATORY Final Result [facility] [address] [place] [address], * (ABNORMAL) CBC W/DIFF AUTOMATED (10/08/2019 9:34 AM CDT) WBC 6.4 4.5 - 10.8 x10'3/uL 10/08/2019 9:43 AM CDT [facility] RBC 4.69 4.50 - 6.10 x10'6/uL 10/08/2019 9:43 AM CDT [facility] HGB 12.9(L) 13.0 - 18.0 G/DL 10/08/2019 9:43 AM CDT [facility] HCT 41.1 37.0 - 52.0 % 10/08/2019 9:43 AM CDT [facility] MCV 87.6 78.0 - 100.0 FL 10/08/2019 9:43 AM CDT [facility] MCH 27.5 27.0 - 31.0 PG 10/08/2019 9:43 AM CDT [facility] MCHC 31.4(L) 33.0 - 36.0 G/DL 10/08/2019 9:43 AM CDT [facility] RDW 14.2 11.5 - 14.5 % 10/08/2019 9:43 AM CDT [facility] PLT 260 150 - 350 x10'3/uL 10/08/2019 9:43 AM CDT [facility] MPV 11.3(H) 7.4 - 10.4 FL 10/08/2019 9:43 AM CDT [facility] DIFFERENTIAL COMMENT NORMAL REFERENCE RANGE NOT ESTABLISHED FOR THE PROPORTIONAL LEUKOCYTE DIFFERENTIAL. 10/08/2019 9:43 AM CDT [facility] SEG NEUTROPHILS 58.4 % 0 9:43 AM CDT [facility] LYMPHOCYTES 27.4 % 10/08/2019 9:43 AM CDT [facility] MONOCYTES 9.6 % 10/08/2019 9:43 AM CDT [facility] EOSINOPHILS 3.0 % 10/08/2019 9:43 AM CDT [facility] BASOPHILS 1.3 % 10/08/2019 9:43 AM CDT [facility] IMMATURE GRANS % 0.3 % 10/08/19 20 9:43 AM CDT [facility] NRBC 0.0 % 10/08/2019 9:43 AM CDT [facility] ABS. NEUTROPHILS 3.72 1.60 - 8.30 x10'3/uL 10/08/2019 9:43 AM CDT [facility] ABS. LYMPHOCYTES 1.74 0.80 - 4.70 x10'3/uL 10/08/2019 9:43 AM CDT [facility] ABS. MONOCYTES 0.61 0.00 - 1.50 x10'3/uL 10/08/2019 9:43 AM CDT [facility] ABS. EOSINOPHILS 0.19 0.00 - 0.40 x10'3/uL 10/08/2019 9:43 AM CDT [facility] ABS. BASOPHILS 0.08 0.00 - 0.20 x10'3/uL 10/08/2019 9:43 AM CDT [facility] ABS. IMMATURE GRANULOCYTES 0.02 0.00 - 0.03 x10'3/uL 10/08/2019 9:43 AM CDT [facility] ABS. NUCLEATED RBC'S 0.00 0.00 x10'3/uL 10/08/2019 9:43 AM CDT [facility] 10/08/2019 9:34 AM CDT us Danny Blackwell MD LABORATORY Final Result [facility] [address] [place] [address], * (ABNORMAL) BASIC METABOLIC PANEL (10/08/2019 9:34 AM CDT) SODIUM S/P/B 138 136 - 145 MMOL/L 10/08/2019 9:53 AM CDT [facility] POTASSIUM S/P/B 4.3 3.5 - 5.1 MMOL/L 10/08/2019 9:53 AM CDT [facility] CHLORIDE S/P/B 103 98 - 107 MMOL/L 10/08/2019 9:53 AM CDT [facility] CO2 27.0 21.0 - 32.0 MMOL/L 10/08/2019 9:53 AM T [facility] GLUCOSE 134(H) 70 - 99 MG/DL 10/08/2019 9:53 AM T [facility] Comment: FASTING GLUCOSE 100 TO 125 MG/DL IS CONSISTENT WITH IMPAIRED FASTING GLUCOSE. FASTING GLUCOSE >125 MG/DL IS CONSISTENT WITH DIABETES. RANDOM GLUCOSE >200 MG/DL WITH HYPERGLYCEMIC SYMPTOMS IS CONSISTENT WITH DIABETES. PER ADA GUIDELINES BUN 13 6 - 24 MG/DL 10/08/2019 9:53 AM T [facility] CREATININE S/P/B 0.91 0.70 - 1.30 MG/DL 10/08/2019 9:53 AM T [facility] CALCIUM S/P/B 9.3 8.4 - 10.5 MG/DL 10/08/2019 9:53 AM T [facility] ANION GAP 8.0 5.0 - 15.0 MMOL/L 10/08/2019 9:53 AM T [facility] OSMOLALITY (CALC) 288 MOSM/KG 020 9:53 AM T [facility] Comment:REFERENCE RANGE NOT ESTABLISHED EGFR NON-AFR. AMER. >90 >89 ML/MIN/1. 73 M2 10/08/2019 9:53 AM T [facility] EGFR AFR. AMER. >90 >89 ML/MIN/1. 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, initial encounter ([facility]) Diabetes ([facility]) documented in this encounter Care Teams Bath Steward/Stewardess Relationship Specialty Start Date End Date Vernon Mercedes MD [address] [place] [address] PCP - General FAMILY PRACTICE 10/27/15 12/02/21 Evaristo Allan MD [address] [place] [address] [employer] Button Station Worker CARDIOVASCULAR DISEASE 08/19/16 Raul Santana MD [address] [place] [address] CLINICAL CARDIAC ELECTROPHYSIOLOGY 06/16/17 Danny Blackwell MD [address] [place] [address] ORTHOPAEDIC SURGERY 05/01/19 documented as of this encounter
--- OUTSIDE RECORDS SUMMARY | 2024-04-23 04:28 | XMS_ITS | Encounter Summary ---
Author Organization [facility] Address [address] [place] [address]. [place], [place] [address] [place] [address] Care Team Providers Care Contract Consultant Name Role Phone Vernon Mercedes MD Primary Care Provider [phone] Evaristo Allan MD Unavailable Unavailabl e Raul Santana MD Unavailable Unavailabl e Danny Blackwell MD Unavailable [phone] Reason for Visit * Reason Comments Jnt Pain/Knee * Physical Medicine (Routine) - Closed Specialty Diagnoses / Procedures Referred By Charito ledbetter Referred To Contact PHYSICAL THERAPY Diagnoses Prosthetic joint implant failure, subsequent encounter Aftercare following right knee joint replacement surgery Dari Piña FNP-[facility]ERSON [address] [place] [address] Phone: tel: fax: Referral ID Status Reason Start Date Expiration Date V isits Requested Visits Authorized [id number] Closed Physical Therapy 10/16/2019 11/14/2020 60 60 Encounter Details Date Type Department Care Team (Late st Contact Info) Description 10/24/2019 9:34 AM CDT - 10/24/2019 11:59 PM T Hospital Encounter [facility] [address] [place] [address] Dari Piña FNP-ANDERSON [address] [place] [address] Rossy Cardenas, DPT Jnt Pain/Knee Discharge Disposition: [...] 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 CARDIAC CATHETERIZATION 11/13/2018 ??? FRACTURE SURGERY ??? HERNIA REPAIR ??? KNEE ARTHROPLASTY Bilateral ??? LITHOTRIPSY ??? XA ABLATION 05/19/2016 ??? XA CORONARY INTERVENTION 03/24/2018 CYLINDRICAL MIXER PCI-mid RCA Subjective: Diagnosis: R TKA Referring Physician: ISAURO Sarah Onset Date: 10/15/2019 Mechanism Of Injury: Patient had a revision of his R TKA from 20 years ago. The patient is in a lotof pain. He arrives to therapy in a wheelchair, but ambulates into the clinic with a wheeled walker. He reports that he sleeping in his bed at home. He reports he is walking to and from the bathroom and bedroom. Patient has tried his steps once at home. Patient has 2 steps to enter the home with a left ascending handrail. Patient is taking pain medication. Patient was having multiple falls prior this replacement; he believes from the R knee giving out. Patient did not walk with an assistive device prior to surgery. Functional limitations: stairs, walking, getting in and out of bed, getting in and out a chair, squatting Prior Treatment For Diagnosis: ice Location of Pain: R knee, specifically the quadricep Current Pain: 6/10 Highest Pain: 9/10 Lowest Pain: 0/10 Description of Pain: throbbing Aggravating Factors: see functional limitations Alleviating Factors: resting, medication, Restriction/Precaution: WBAT Patient Goals: Patient would like to be in no pain and walk without a device. Objective: KNEE ROM Left AROM Right P/AROM Knee extension 110 3/4 Knee flexion 1 64/60 KNEE STRENGTH Left Right Hip flexor 4+/5 Quadricep 5/5 Dorsiflexors 5/5 5/5 Hamstrings 5/5 Edema: R 42.5 cm; L 37 cm Functional Activity Performance Gait: Patient ambulates with step to gait pattern on the L, decreased josep, increased hip flexion, decreased knee flexion throughout the gait cycle, and antalgia. Sit to Stand: Patient does not flex knee during sit to stand and keeps it extended in front of him. LEFS: 6 Education Performed: Educated patient in importance of adherence to HEP. Provided initial HEP with handout. HEP: heel slide, quad set, HS stretch seated Treatment Performed: Therapeutic Exercise 05152: Time: 10 Gameready x 15 min Assessment Assessment/Impressions: Evaristo Zelaya is a 59-year-old male who presents with a primary complaint of R TKA revision. Patient is demonstrating deficits in Strength, ROM, Balance, Mobility and Transfers, leading to pain, difficulty walking, standing, sitting, stair climbing, and squatting. Skilled therapy is appropriate at this time to address these impairments and to move the patient towardstheir goal of being able to walk without an assistive device and no pain. Rehab Potential: GOOD Personal Factors/Co-Morbidities Affecting Care: 3-4+ Examination of Body Systems: Low (1-2) Clinical Presentation of Patient: Stable Uncomplicated Eval Complexity: Low PLAN: PT Plan for next visit: strengthening, ROM, modalities Treatment/Interventions: Therapeutic Exercise - 08508, Therapeutic Activity - 98425, Neuromuscular Re-education - 66155, Manual Therapy - 71445, Gait Training - 09638, Electrical Stimulation Unattended - 34365, Vasopneumatic Compression - 64022 and Ultrasound - 44688 Frequency: 3x/week Duration: 4 weeks GOALS: Pt will increase R knee flexion AROM from 60 to 110 to improve his ability to climb stairs after 4 weeks of physical therapy. Pt will increase R knee extension AROM from 4 to 0 to improve his ability to walk with proper mechanics in the grocery store after 4 weeks of physical therapy. Pt will present with gross R LE strength to 4+/5 to improve tolerance for squatting activities after 4 weeks of physical therapy. Pt will reduce edema from 42.5 to 37 cm after 4 weeks of physical therapy. Pt will increase LEFS score from 6 to 15 to meet the MCID after 4 weeks of physical therapy. Pt will be independent with HEP after 2 weeks of physical therapy. THE PROVIDER, I AM IN AGREEMENT WITH THE STATED THERAPY PLAN OF CARE. Provider Signature: Date: In signing this document, provider certifies that prescribed rehabilitation is a medical necessity. Date: 10/24/19 Patient Name: Evaristo Zelaya Patient : 1960 Patient [facility] [address] [facility] [address] Dept: [phone] Dept Cosigned by ISAURO Rodriguez at 10/24/2019 12:08 PM CDT documented in this encounter Plan of Treatment Upcoming Encounters Date Type Department Care Team (Late st Contact Info) Description 04/25/2024 11:00 AM ADULT BASIC EDUCATION MANAGER Appointment [facility] [place] [address] Ti Bonilla MD [address] [place] [phone] 05/23/2024 3:30 PM ADULT BASIC EDUCATION MANAGER Office Visit [facility] [address] [place] [address] Jyoti Escobar MD [address] [place] [address] documented as of this encounter Visit Diagnoses Diagnosis Status post revision of total replacement of right knee documented in this encounter Care Teams Contract Consultant Relationship Specialty Start Date End Date Vernon Mercedes MD [address] [place] [address] PCP - General FAMILY PRACTICE 10/27/15 12/02/21 Evaristo Allan MD [address] [place] [address] [employer] Contact Center Analyst CARDIOVASCULAR DISEASE 08/19/16 Raul Santana MD [address] [place] [address] CLINICAL CARDIAC ELECTROPHYSIOLOGY 06/16/17 Danny Blackwell MD [address] [place] [address] ORTHOPAEDIC SURGERY 05/01/19 documented as of this encounter
--- OUTSIDE RECORDS SUMMARY | 2024-04-23 04:28 | XMS_ITS | Encounter Summary ---
Author Organization [facility] Address [address] [place] [address]. 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 [address] [address] Ti Bonilla MD [address] [place] [phone] 05/23/2024 3:30 PM CATH LAB RADIOLOGICAL TECHNOLOGIST [facility] [address] [place] [address] Jyoti Escobar MD [address] [place] [address] documented as of this encounter Visit Diagnoses Not on filedocumented in this encounter Additional Health Concerns Infection Onset Date Last Indicated Resolved Time MRSA Comment:Negative MRSA 05/201903/11/2017 03/11/2017 10/03/2019 10:08 AM CDT documented as of this encounter Care Teams Door To Door Salesman Relationship Specialty Start Date End Date Vernon Mercedes MD [address] [place] [address] PCP - General FAMILY PRACTICE 10/27/15 12/02/21 Evaristo Allan MD [address] [place] [address] [employer] Manager CARDIOVASCULAR DISEASE 08/19/16 Raul Santana MD [address] [place] [address] CLINICAL CARDIAC ELECTROPHYSIOLOGY 06/16/17 Danny Blackwell MD [address] [place] [address] ORTHOPAEDIC SURGERY 05/01/19 documented as of this encounter
--- OUTSIDE RECORDS SUMMARY | 2024-04-23 04:28 | XMS_ITS | Encounter Summary ---
Author Organization [facility] Address [address] [place] [address]. [place], [place] [address] [place] [address] Care Team Providers Care Community Life Director Name Role Phone Vernon Mercedes MD Primary Care Provider [phone] Evaristo Allan MD Unavailable Unavailabl Raul Duran MD Unavailable Unavailabl e Danny Blackwell MD Unavailable [phone] Reason for Referral * Physical Medicine (Routine) - Closed Specialty Diagnoses / Procedures Referred By Charito ledbetter Referred To Contact PHYSICAL THERAPY Diagnoses Prosthetic joint implant failure, subsequent encounter Aftercare following right knee joint replacement surgery Dari Piña FNP-BC [address] [address] Phone: tel: fax: Referral ID Status Reason Start Date Expiration Date V isits Requested Visits Authorized [id number] Closed Physical Therapy 10/16/2019 11/14/2020 60 60 Encounter Details Date Type Department Care Team (Late st Contact Info) Description 10/16/2019 Orders Only [facility] [address], [facility] [address] [place] [address] Dari Piña FNP-BC [address] [place] [address] Social History Tobacco Use Types Packs/Day Years [...] 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 [address] [facility] [address] [place] [address] Ti Bonilla MD [address] [place] [phone] 05/23/2024 3:30 PM TEXTILE DESIGNS SALES REPRESENTATIVE [facility] [address] [place] [phone] Jyoti Escobar MD [address] [place] [address] Scheduled Referrals Name Type Priority Associated Diagnoses Orde r Schedule Ambulatory referral to Physical Therapy Referral Routine Prosthetic joint implant failure, subsequent encounter Aftercare following right knee joint replacement surgery Ordered: 10/16/2019 documented as of this encounter Visit Diagnoses Diagnosis Prosthetic joint implant failure, subsequent encounter- Primary Aftercare following right knee joint replacement surgery documented in this encounter Care Teams Community Life Director Relationship Specialty Start Date End Date Vernon Mercedes MD [address] [place] [phone] PCP - General FAMILY PRACTICE 10/27/15 12/02/21 Evaristo Allan MD [address] [place] [address] [employer] Winder And Inspector CARDIOVASCULAR DISEASE 08/19/16 Raul Santana MD [address] [place] [address] CLINICAL CARDIAC ELECTROPHYSIOLOGY 06/16/17 Danny Blackwell MD [address] [place], [place] [phone] ORTHOPAEDIC SURGERY 05/01/19 documented as of this encounter
--- OUTSIDE RECORDS SUMMARY | 2024-04-23 04:29 | XMS_ITS | Encounter Summary ---
Author Organization [facility] Address [address] [place] [address]. [place], [place] [address] [place] [address] Care Team Providers Care Catalogue Maker Name Role Phone Vernon Mercedes MD Primary Care Provider [phone] Evaristo Allan MD Unavailable UnavailRaul Suresh MD Unavailable Unavailabl Myah Gee NP Unavailable Unavailable Danny Blackwell MD Unavailable [phone] Reason for Visit * Reason Onset Date Comments Schedule Surgery 06/12/2019 Cancelled due t o high A1C Encounter Details Date Type Department Care Team (Late st Contact Info) Description 06/12/2019 Telephone [facility] [place] [phone] Kady Vann RN Schedule Surgery (Cancelled due to high A1C) Social History Tobacco Use Types Packs/Day Years [...] 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 informed that patient will need to have A1C less than 9 to proceed with surgery. He may need to contact Dr. Mercedes's office to arrange monitoring. She verbalizes understanding and denies any questions. PMD Office notified of surgery cancellation. CAR CHECKER documented in this encounter Plan of Treatment Upcoming Encounters Date Type Department Care Team (Late st Contact Info) Description 04/25/2024 11:00 AM BOX CAR CHECKER Appointment [facility] [address] [place] [address] Ti Bonilla MD [address] [place] [phone] 05/23/2024 3:30 PM BOX CAR CHECKER Office Visit [facility] [address] [place] [address] Jyoti Escobar MD [address] [place] [phone] documented as of this encounter Visit Diagnoses Not on filedocumented in this encounter Additional Health Concerns Infection Onset Date Last Indicated Resolved Time MRSA Comment:Negative MRSA 05/201903/11/2017 03/11/2017 10/03/2019 10:08 AM CDT documented as of this encounter Care Teams Catalogue Maker Relationship Specialty Start Date End Date [place] [address] PCP - General FAMILY PRACTICE 10/27/15 12/02/21 [place] [address] Judge CARDIOVASCULAR DISEASE 08/19/16 [place] [address] CLINICAL CARDIAC ELECTROPHYSIOLOGY 06/16/17 Myah Handley [place] [address] CARDIOVASCULAR DISEASE 06/16/17 07/10/19 Danny Blackwell MD [address] [place] [address] ORTHOPAEDIC SURGERY 05/01/19 documented as of this encounter
--- OUTSIDE RECORDS SUMMARY | 2024-04-23 04:29 | XMS_ITS | Encounter Summary ---
Author Organization [facility] Address [address] [place] [address]. 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 Not on file documented as of this encounter Plan of Treatment Upcoming Encounters Date Type Department Care Team (Late Contact Info) Description 04/25/2024 11:00 AM FINISHED CARPET INSPECTOR Appointment [facility] [address] [facility] [place] [address] Ti Bonilla MD [address] [place] [phone] 05/23/2024 3:30 PM FINISHED CARPET INSPECTOR Office Visit [facility] [address] [place] [phone] Jyoti Escobar MD [address] [place] [address] documented as of this encounter Results * ECG 12 lead (06/12/2019 10:54 AM FINISHED CARPET INSPECTOR) 06/12/2019 10:5 4 AM FINISHED CARPET INSPECTOR Narrative [facility] - 06/12/2019 12:27 PM FINISHED CARPET INSPECTOR ? [facility] ?[address] [place], [place] ??[address] ? Test Date: ?2019-06-12 Pat Name: ? ELZA MCKEON ? Department: ? Room: ? Gender: ? Male ? Edger Machine Operator: ?? : ?1960 ? Requested By: DANNY BLACKWELL Order Number: [id number] ? Jose Antonio OSMAN: ?? Elza Allan ? Measurements Intervals ?[place] ? Rate: ? 79 ? P: ?45 WI: ? 114 ?QRS: ?73 QRSD: ? 124 ?T: ?25 QT: ? 377 ? QTc: ?433 ? Interpretive Statements SINUS RHYTHM WITH SHORT WI INTERVAL WITH OCCASIONAL SUPRAVENTRICULAR PREMATURE COMPLEXES RIGHT BUNDLE BRANCH BLOCK SHED CARPET INSPECTOR Procedure Note Elza Allan MD - 06/12/[address] [place] [address] Test Date: 2019-06-12 Pat Name: ELZA MCKEON Department: Room: Gender: Male Edger Machine Operator: : 1960 Requested By: DANNY BLACKWELL Order Number: [id number] Jose Antonio MD: Elza Allan Measurements Intervals [place] Rate: 79 P: 45 WI: 114 QRS: 73 QRSD: 124 T: 25 QT: 377 QTc: 433 Interpretive Statements SINUS RHYTHM WITH SHORT WI INTERVAL WITH OCCASIONAL SUPRAVENTRICULAR PREMATURE COMPLEXES RIGHT BUNDLE BRANCH BLOCK SHED CARPET INSPECTOR us Danny Blackwell MD ECG ORDERABLES Final Result [facility] * (ABNORMAL) HEMOGLOBIN, GLYCOSYLATED (06/12/2019 10:33 AM FINISHED CARPET INSPECTOR) HGB A1C 9.8(H) <5.7 % 06/12/2019 11:06 AM FINISHED CARPET INSPECTOR [facility] Comment: 5.7 TO 6.4% INCREASED RISK OF DIABETES > OR = 6.5% CONSISTENT WITH DIABETES PER ADA GUIDELINES ESTIMATED AVG GLUCOSE 235(H) 70 - 140 MG/DL 06/12/2019 11:06 AM FINISHED CARPET INSPECTOR [facility] 06/12/2019 10:3 3 AM FINISHED CARPET INSPECTOR Danny Blackwell MD LABORATORY Final Result Performing Organization Address City/[facility]/ZIP Co de Phone Number [facility] [address] [place], [place] [address] [phone] documented in this encounter Visit Diagnoses Diagnosis Essential hypertension- Primary Unspecified essential hypertension Diabetes ([facility]) Essential hypertension Unspecified essential hypertension documented in this encounter Additional Health Concerns Infection Onset Date Last Indicated Resolved Time MRSA Comment:Negative MRSA 05/201903/11/2017 03/11/2017 10/03/2019 10:08 AM CDT documented as of this encounter Care Teams Doctor Chiropractic Relationship Specialty Start Date End Date [place] [address] PCP - General FAMILY PRACTICE 10/27/15 12/02/21 [place] [address] [place] [employer] CARDIOVASCULAR DISEASE 08/19/16 [place] [phone] CLINICAL CARDIAC ELECTROPHYSIOLOGY 06/16/17 Myah Handley, CORPORATE LOGISTICS [place] [address] [phone] CARDIOVASCULAR DISEASE 06/16/17 07/10/19 Danny Blackwell MD [address] [place] [address] ORTHOPAEDIC SURGERY 05/01/19 documented as of this encounter
--- OUTSIDE RECORDS SUMMARY | 2024-04-23 04:29 | XMS_ITS | Encounter Summary ---
Author Organization [facility] Address [address] [place] [address]. [place], [place] [address] [place] [address] Care Team Providers Care Professor Of Pathology Name Role Phone Vernon Mercedes MD Primary Care Provider [phone] Evaristo Allan MD Unavailable UnavailRaul Suresh MD Unavailable Unavailabl Myah Gee NP Unavailable Unavailable Reason for Visit * Reason Onset Date Comments Advice 11/05/2018 Encounter Details Date Type Department Care Team (Late st Contact Info) Description 11/05/[address] 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 Not on file documented as of this encounter Progress Notes * Evaristo Allan MD - 11/05/2018 1:18 PM CDT ----- Message from Marcelle Madden RN sent at 11/03/2018 9:16 AM CDT ----- Needs FISH WORM GROWER documented in this encounter Plan of Treatment Upcoming Encounters Date Type Department Care Team (Late st Contact Info) Description 04/25/2024 11:00 AM DIRECTOR OF SLEEP Appointment [facility] [address] [place] [address] Ti Bonilla MD [address] [place] [phone] 05/23/2024 3:30 PM DIRECTOR OF SLEEP Office Visit [facility] [address] [place] [address] Jyoti Escobar MD [address] [place] [address] documented as of this encounter Visit Diagnoses Not on filedocumented in this encounter Additional Health Concerns Infection Onset Date Last Indicated Resolved Time MRSA Comment:Negative MRSA 05/201903/11/2017 03/11/2017 10/03/2019 10:08 AM CDT documented as of this encounter Care Teams Professor Of Pathology Relationship Specialty Start Date End Date Vernon Mercedes MD [address] [place] [address] PCP - General FAMILY PRACTICE 10/27/15 12/02/21 [place] [address] [place] Market Research Intern CARDIOVASCULAR DISEASE 08/19/16 [place] [address] CLINICAL CARDIAC ELECTROPHYSIOLOGY 06/16/17 [place] [address] CARDIOVASCULAR DISEASE 06/16/17 07/10/19 documented as of this encounter
--- OUTSIDE RECORDS SUMMARY | 2024-04-23 04:29 | XMS_ITS | Encounter Summary ---
Author Organization [facility] Address [address] [place] [address]. [place] [address] [place] [address] Care Team Providers Care Creative Intern Name Role Phone Vernon Mercedes MD Primary Care Provider [phone] Evaristo Allan MD Unavailable Unavailabl Raul Duran MD Unavailable Unavailabl Myah Gee NP Unavailable Unavailable Reason for Visit * Reason Onset Date Comments Results 01/19/2019 Encounter Details Date Type Department Care Team (Late st Contact Info) Description 01/19/2019 Telephone [facility] [address] [place] [address] Gayle Arce APRN, WINDOWS ARCHITECT-C [address] [facility] [address] [place] [address] Results Social History Tobacco Use [...] 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 Zelaya regarding recent test results. Left message to return call. * Gayle Arce APRN, NP-C - 01/19/2019 3:32 PM CDT ----- Message from Evaristo Allan MD sent at 01/16/2019 1:51 PM CDT ----- Event monitoring: benign. Sxs occurred during sinus tachycardia or NSR. Could check TFTs if not done in the past. IF CP continues, could revisit in clinic. documented in this encounter Plan of Treatment Upcoming Encounters Date Type Department Care Team (Late st Contact Info) Description 04/25/2024 11:00 AM INSECTICIDE MIXER Appointment [facility] [address] [place] [address] Ti Bonilla MD [address] [place] [phone] 05/23/2024 3:30 PM INSECTICIDE MIXER Office Visit [facility] [address] [place] [phone] Jyoti Escobar MD [address] [place] [phone] documented as of this encounter Visit Diagnoses Not on filedocumented in this encounter Additional Health Concerns Infection Onset Date Last Indicated Resolved Time MRSA Comment:Negative MRSA 05/201903/11/2017 03/11/2017 10/03/2019 10:08 AM CDT documented as of this encounter Care Teams Creative Intern Relationship Specialty Start Date End Date Vernon Mercedes MD [address] [place] [address] PCP - General FAMILY PRACTICE 10/27/15 12/02/21 Evaristo Allan MD [address] [place] [address] [employer] Distributor Operator CARDIOVASCULAR DISEASE 08/19/16 Raul Santana MD [address] [place] [address] CLINICAL CARDIAC ELECTROPHYSIOLOGY 06/16/17 Myah Handley NP [address] [place] [address] CARDIOVASCULAR DISEASE 06/16/17 07/10/19 documented as of this encounter
--- OUTSIDE RECORDS SUMMARY | 2024-04-23 04:29 | XMS_ITS | Encounter Summary ---
Author Organization [facility] Address [address] [place] [address]. [place], [place] [address] [place] [id number] Care Team Providers Care Associate Professor Of Media Arts Name Role Phone Ton Mercedes MD Primary Care Provider [phone] Stanislaw Rhodes MD Unavailable Unavailab Evaristo Ying MD Unavailable UnavailRaul Suresh MD Unavailable UnavailMyah Elena NP Unavailable Unavailable Deven Cleary MD Unavailable Unavailable Reason for Referral * Imaging (Routine) - Closed Specialty Diagnoses / Procedures Referred By Contac t Referred To Contact CARDIOVASCULAR DISEASE Diagnoses Paroxysmal atrial fibrillation ([facility]) Obstructive sleep apnea Essential hypertension Mixed hyperlipidemia Coronary artery disease of [place] artery of [place] heart with stable angina pectoris ([facility]) Procedures EVENT MONITOR 30 DAYS Evaristo Allan MD [address] [facility] [place] [address] [facility] [address] Phone: tel:[phone] fax:[phone] Referral ID Status Reason Start Date Expiration Date Visits Re quested Visits Authorized [id number] Closed 05/05/2018 06/05/2019 1 1 [place] LEASING AG[place] Reason for Visit * Reason Comments Follow Up Coronary Artery Disease Encounter Details Date Type Department Care Team (Latest Contact Info) Description 05/04/2018 12:30 PM RETAIL LEASING AGENT Office Visit [facility] [address] [place] [address] Evaristo Allan MD Follow Up; Coronary Artery Disease Social History Tobacco Use Types Packs/Day Years [...] Sign Reading Time Taken Comments Blood Pressure 108/72 05/05/2018 11:26 AM RETAIL LEASING AGENT Pulse 88 05/05/2018 11:26 AM RETAIL LEASING AGENT Temperature - - Respiratory Rate 18 05/05/2018 11:26 AM RETAIL LEASING AGENT Oxygen Saturation 96% 05/05/2018 11:26 AM RETAIL LEASING AGENT Inhaled Oxygen Concentration - - Weight 117 kg (258 lb) 05/05/2018 11:26 AM RETAIL LEASING AGENT Height 180.3 cm (5' 11 ) 05/05/2018 11:26 AM RETAIL LEASING AGENT Body Mass Index 35.98 05/05/2018 11:26 AM RETAIL LEASING AGENT documented in this encounter Patient Instructions * Patient Instructions* Marcelle Madden RN - 05/04/2018 12:30 PM RETAIL LEASING AGENT 1. Event monitor 2. Continue Brillinta & Pradaxa 3. Needs appt with Dr Santana - recurrent AF 4. Check recent lab - mag & potassium [place] LEASING AGENT documented in this encounter Progress Notes * Evaristo Allan MD - 05/04/2018 12:30 PM CST Reason for Visit: Follow Up and Coronary Artery Disease Medications: Current Outpatient Medications: ??? aspirin EC (ASPIRIN) 81 MG EC tablet, Take 81 mg by mouth daily., Disp: , Rfl: ??? dabigatran 150 MG Cap, Take 150 mg by mouth 2 (two) times daily., Disp: , Rfl: ??? amitriptyline 50 MG tablet, Take 50 mg by mouth nightly at bedtime., Disp: , Rfl: ??? atorvastatin 40 MG tablet, Take 40 [...] , Disp:, Rfl: ??? isosorbide mononitrate ER (IMDUR) 30 MG 24 hr tablet, Take 1 tablet (30 mg total) by mouth daily., Disp: 30 tablet, Rfl: 5 ??? LEVEMIR 100 UNIT/ML injection, Inject 20 Units into the skin 3 (three) times daily with meals. , Disp: , Rfl: ??? metFORMIN 850 MG tablet, Take 850 mg by mouth 2 (two) times daily with meals., Disp: , Rfl: ??? metoprolol succinate 50 MG 24 hr tablet, Take 1 tablet (50 mg total) by mouth 2 (two) times a day., Disp: 60 tablet, Rfl: 5 ??? nitroglycerin 0.4 MG SL tablet, Place 1 tablet (0.4 mg total) under the tongue every 5 (five) minutes as needed for Chest Pain., Disp: 25 tablet, Rfl: 1 ??? ranitidine 150 MG tablet, Take 150 mg by mouth 2 (two) times daily., Disp: , Rfl: ??? spironolactone 25 MG tablet, Take 25 mg by mouth daily., Disp: , Rfl: ??? tamsulosin 0.4 MG Cap, Take 0.4 mg by mouth daily., Disp: , Rfl: ??? ticagrelor 90 MG tablet, Take 1 tablet (90 mg total) by mouth 2 (two) times daily., Disp: 180 tablet, Rfl: 3 ??? traMADol 50 MG tablet, Take 50 mg by mouth every 6 (six) hours as needed for Pain., Disp: , Rfl: Allergies Allergen Reactions ??? Doxycycline Unknown ? ? Tetracyclines & Related Unknown Past Medical History: Diagnosis Date ??? Abnormal stress test ??? Arthritis ??? Chest pain ??? 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 Diabetes (CMS/HCC) ??? Fatigue ??? GERD (gastroesophageal reflux disease) ??? Headache ??? Hyperlipidemia ??? Hypertension has had elevated B/P readings ??? SARAI on CPAP ??? Paroxysmal atrial fibrillation (CMS/HCC) ??? SOB (shortness of breath) Past Surgical History: Procedure Laterality Date ??? CARDIAC CATHETERIZATION 01/04/2018 occluded prox RCA w/well developed cuwg-uk-dwzfe collaterals lvef 55-60% ??? FRACTURE SURGERY ??? HERNIA REPAIR ??? KNEE ARTHROPLASTY ??? XA ABLATION 05/19/2016 Social History Tobacco Use ??? Smoking status: Never Smoker ??? Smokeless tobacco: Never Used Substance Use Topics ??? Alcohol use: Yes ??? Drug use: No No family history on file. Family Status Relation Name Status ??? Mother [...] of breath and snoring. Cardiovascular: See HPI Gastrointestinal: Negative for blood in stool and melena. Genitourinary: Negative for dysuria. Musculoskeletal: Negative for myalgias and new or worsening joint stiffness/pain. Skin: Negative for rash. Neurological: Negative for tingling/numbness and focal weakness. Endo/Heme/Allergies: Negative for new or significant bruising/bleeding and polydipsia. Psychiatric/Behavioral: Negative for depression and new or significant memory loss. Filed Vitals: 05/05/18 1126 BP: 108/72 Pulse: 88 Resp: 18 SpO2: 96% Weight: 117 kg (258 lb) Height: 5' 11 (1.803 m) Body mass index is 35.98 kg/m??. Physical Exam Rate/Rythm: regular rhythm and normal rate . Heart Sounds: normal heart sounds, normal S1 and normal S2 no gallop, no S3 sounds, no S4 sounds and no murmur,. PMI: PMI not displaced. Pulses: normal pulses Right Carotid pulses 2+, Left Carotid pulses 2+, Right Femoral pulses 2+, Left Femoral pulses 2+, Right DP pulses 2+, Left DP pulses 2+ Edema: 1+ and 1+negative for edema Consitutional: healthy appearance not distressed . Neck: neck supple no JVD.. Pulmonary/Chest Wall: effort normal and breath sounds normal . HENT: teeth/gums normal and oropharynx clear and moist.. Abdomen: no tenderness, no mass, no hepatomegaly, no splenomegaly, abdominal aorta not palpably enlarged and no abdominal aortic bruit. Eyes: conjunctivae normal. Neurological: alert, oriented x 3 and appropriate for situation, . Skin: dry and warm no cyanosis and no clubbing. Musculoskeletal: no kyphosis Cardiovascular Comments: Overweight Carlos The documentation for the above exam was created using a template entered by ancillary staff however the physical exam was completed entirely by the provider responsible for this visit. The physical exam documentation was reviewed and modified by the provider to reflect his/her findings. Diagnoses/Impression: 1. Paroxysmal atrial fibrillation (CMS/HCC) 2. 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 Essential hypertension 5. Mixed hyperlipidemia 6. Diabetes (CMS/HCC) 7. Coronary artery disease of [place] artery of [place] heart with stable angina pectoris (CMS/HCC) 8. Cardiovascular stress test abnormal Referring Provider: No ref. provider found PCP: TON MERCEDES MD [place] LEASING AGENT * Evaristo Allan MD - 05/04/2018 12:00 AM CST HISTORY OF PRESENT ILLNESS: Mr. Zelaya is seen in the [facility] today for a scheduled followup visit. He reports that he is doing reasonably well at the present time. Mr. Zelaya still complains of chest pains. They usually last from seconds to minutes and located in the mid portion of his chest with radiation through to the back. They can occur at any time and seemed to be associated with a feeling of dizziness. He denies any associated shortness of breath, nausea, or diaphoresis. He has undergone CTL under the direction of Dr. Cleary. Mr. Zelaya also has a history of atrial fibrillation, which is rapid in nature. It usually lasts approximately 1 minute. He is status post ablations, 1 year ago. He denies any overt symptoms of congestive heart failure such as paroxysmal nocturnal dyspnea, orthopnea, and has been trying to use his CPAP machine. He denies any history of syncope. He is tolerating his present medications well, but does report that he is out of Brilinta. RECOMMENDATIONS AND PLAN: Mr. Zelaya cardiac status is reasonably stable at the present time, but hecontinues to have some difficulties with chest pains, which are somewhat atypical in nature. He also has ongoing palpitations and feels as though he has had recurrence of his previously noted atrial fibrillation. Further evaluation and treatment is warranted. After a long discussion in the clinic, I have recommended the following to Mr. Zelaya: 1. Continue present medical regimen including combination of Brilinta/Pradaxa anticoagulation for now. 2. Check recent laboratory for serum potassium and magnesium levels. 3. 21-day event monitoring to further assess the ongoing palpitations to see if he is truly having recurrent atrial fibrillation. 4. Reevaluation in the EP clinic with Dr. Raul Santana. 5. Annual followup in the cardiology clinic. I have encouraged Mr. Zelaya to contact me in the meantime should he have any questions or problems. [place] LE[place]ING [place] documented in this encounter Plan of Treatment Upcoming Encounters Date Type Department Care Team (Late st Contact Info) Description 04/25/2024 11:00 AM RETAIL LEASING AGENT Appointment [facility] [address] [place] [address] [place] [address] Ti Bonilla MD [address] [place] [phone] 05/23/2024 3:30 PM RETAIL LEASING AGENT Office Visit [facility] [address] [place] [address] Jyoti Escobar MD [address] [place] [phone] documented as of this encounter Results * EVENT MONITOR 30 DAYS (05/04/2018) us Evaristo Allan MD HOLTER Final Resul t documented in this encounter Visit Diagnoses Diagnosis Coronary artery disease of [place] artery of [place] heart with stable angina pectoris (CMS/HCC)- Primary Paroxysmal atrial fibrillation (CMS/HCC HHS/HCC) Atrial fibrillation Essential hypertension Unspecified essential hypertension Mixed hyperlipidemia Obstructive sleep apnea Obstructive sleep apnea (adult) (pediatric) documented in this encounter Additional Health Concerns Infection Onset Date Last Indicated Resolved Time MRSA Comment:Negative MRSA 05/201903/11/2017 03/11/2017 10/03/2019 10:08 AM CDT documented as of this encounter Care Teams Associate Professor Of Media Arts Relationship Specialty Start Date End Date Ton Mercedes MD [address] [place] [phone] PCP - General FAMILY PRACTICE 10/27/15 12/02/21 [place] [phone] CARDIOVASCULAR DISEASE 10/27/15 10/24/18 Evaristo Allan MD [address] [place] [address] [place] Helper Coordinator CARDIOVASCULAR DISEASE 08/19/16 [place] [address] CLINICAL CARDIAC ELECTROPHYSIOLOGY 06/16/17 Myah Handley, FARM [place] [address] CARDIOVASCULAR DISEASE 06/16/17 07/10/19 [place] [address] Benefits Representative INTERVENTIONAL CARDIOLOGY 03/21/18 10/24/18 documented as of this encounter
--- OUTSIDE RECORDS SUMMARY | 2024-04-23 04:29 | XMS_ITS | Encounter Summary ---
Author Organization [facility] Address [address] [place] [address]. [place] [address] [place] [address] Care Team Providers Care Business Control Specialist Name Role Phone Vernon Mercedes MD Primary Care Provider [phone] Evaristo Allan MD Unavailable Raul Workman MD Unavailable UnavailMyah Elena NP Unavailable Unavailable Danny Blackwell MD Unavailable Reason for Visit * Reason Onset Date Comments Surgical Clearance 04/26/2019 Encounter Details Date Type Department Care Team (Late st Contact Info) Description 04/26/2019 Telephone [facility] [employer] [address] [place] [address] Evaristo Allan MD Surgical Clearance [...] 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 Advised ok to proceed with surgery. RAL STUDIES PROGRAM CHAIR * Angela Clay RN - 05/01/2019 10:26 AM CST Phoned pt to inform him Dr. Allan has completed his cardiac risk assessment for his upcoming knee replacement surgery. LMTC back. RAL STUDIES PROGRAM CHAIR * Mavis Mccullough - 04/26/2019 4:14 PM CST Pt called stating he was seen by Dr. Blackwell today and will need a total knee replacement and will need cardiac assessment. Pt last seen by DR. Allan on 02/22/19. Ok to use that visit as the assessment? Pt can be reached at [phone]. RAL STUDIES PROGRAM CHAIR documented in this encounter Plan of Treatment Upcoming Encounters Date Type Department Care Team (Late st Contact Info) Description 04/25/2024 11:00 AM GENERAL STUDIES PROGRAM CHAIR Appointment [facility] [address] [address] Ti Bonilla MD [address] [place] [phone] 05/23/2024 3:30 PM GENERAL STUDIES PROGRAM CHAIR Office Visit [facility] [address] [place] [address] Jyoti Escobar MD [address] [place] [phone] documented as of this encounter Visit Diagnoses Not on filedocumented in this encounter Additional Health Concerns Infection Onset Date Last Indicated Resolved Time MRSA Comment:Negative MRSA 05/201903/11/2017 03/11/2017 10/03/2019 10:08 AM CDT documented as of this encounter Care Teams Business Control Specialist Relationship Specialty Start Date End Date Vernon Mercedes MD [address] [place] [address] PCP - General FAMILY PRACTICE 10/27/15 12/02/21 Evaristo Allan MD [address] [place] [address] [place] [employer]asing Manager CARDIOVASCULAR DISEASE 08/19/16 Raul Santana MD [address] [place] [address] CLINICAL CARDIAC ELECTROPHYSIOLOGY 06/16/17 Myah Handley NP [facility] [place] [address] CARDIOVASCULAR DISEASE 06/16/17 07/10/19 Danny Blackwell MD [address] [place] [address] ORTHOPAEDIC SURGERY 05/01/19 documented as of this encounter
--- OUTSIDE RECORDS SUMMARY | 2024-04-23 04:29 | XMS_ITS | Encounter Summary ---
Author Organization [facility] Address [address] [place] [address]. 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 Name Role Phone Vernon Mercedes MD Primary Care Provider [phone] Evaristo Allan MD Unavailable Unavailabl e Raul Santana MD Unavailable Unavailabl e Danny Blackwell MD Unavailable [phone] Reason for Referral * Imaging (Emergency) - Closed Specialty Diagnoses / Procedures Referred By Charito ledbetter Referred To Contact RADIOLOGY Procedures CT ABD+PEL W IV CON ONLY Bj Salinas MD Phone: tel: fax: Referral ID Status Reason Start Date Expiration Date Visits Re quested Visits Authorized [id number] Closed 07/11/2019 08/10/2020 1 1 Reason for Visit * Reason Comments Abdominal Pain Encounter Details Date Type Department Care Team (Late st Contact Info) Description 07/11/2019 4:31 PM CDT - 07/11/2019 6:35 PM CDT Emergency [facility] [address] [place] [address] Bj Salinas MD [address] [place] [id number] Abdominal Pain Discharge Disposition: Home or Self Care [...] have Coronavirus / COVID-19? No / Unsure 07/11/2019 4:37 PM CDT documented as of this encounter Last Filed Vital Signs Vital Sign Reading Time Taken Comments Blood Pressure 154/96 07/11/2019 6:30 PM CDT Pulse 86 07/11/2019 4:37 PM CDT Temperature 36.2 ??C (97.2 ??F) 07/11/2019 4:37 PM CD T Respiratory Rate 18 07/11/2019 4:37 PM CDT Oxygen Saturation 97% 07/11/2019 6:30 PM CDT Inhaled Oxygen Concentration - - Weight 114.3 kg (252 lb) 07/11/2019 4:37 PM CDT Height 180.3 cm (5' 11 ) 07/11/2019 4:37 PM CDT Body Mass Index 35.15 07/11/2019 4:37 PM CDT documented in this encounter Discharge Instructions * Attachments The following attachments cannot be sent through Care Everywhere. * Severe Abdominal Pain Discharge Instructions, Adult (Arabic) documented in this encounter Medications at Time of Discharge metFORMIN 850 MG tablet Take 1 tablet (850 mg total) by mouth 3 (three) times daily. 10/25/2018 amitriptyline 50 MG tablet Take 50 mg by mouth nightly at bedtime. 12/23/2020 aspirin EC 81 MG tablet Take 1 tablet (81 mg total) by mouth daily. 100 tablet 02/23/2019 10/18/2019 atorvastatin 40 MG tablet Take 0.5 tablets (20 mg total) by mouth nightly at bedtime. 12/26/2023 furosemide 20 MG tablet Take 20 mg by mouth daily. 01/28/2017 08/28/2021 gabapentin 300 MG capsule Take 300 mg by mouth 3 (three) times daily. 02/06/2018 06/30/2023 HUMALOG 100 UNIT/ML injection (VIAL) Inject 32 Units into the skin 3 (three) times daily before meals. 12/29/2017 09/28/2019 isosorbide mononitrate ER 30 MG 24 hr tablet Take 1 tablet (30 mg total) by mouth daily. 30 tablet 7 07/10/2019 02/21/2020 LEVEMIR 100 UNIT/ML injection Inject 44 Units into the skin nightly at bedtime. 12/29/2017 06/30/2023 METOPROLOL SUCCINATE ER 50 MG 24 hr tablet TAKE ONE TABLET BY MOUTH 2 TIMES A DAY. 180 tablet 3 07/31/2018 09/28/2019 nitroglycerin 0.[address] 1 tablet (0.4 mg total) under the tongue every 5 (five) minutes as needed for Chest Pain. 25 tablet 1 01/04/2018 12/26/2023 NOVOFINE 32G X 6 MM Misc 10/25/2018 09/28/2019 PRADAXA 150 MG Cap TAKE ONE CAPSULE BY MOUTH TWICE A DAY 60 capsule 11 04/04/2019 04/14/2020 ranitidine 150 MG tablet Take 150 mg by mouth 2 (two) times daily. 09/21/2019 spironolactone 25 MG tablet Take 25 mg by mouth daily. 03/31/2020 tamsulosin 0.4 MG Cap Take 1 capsule (0.4 mg total) by mouth daily. 12/26/2023 traMADol 50 MG tablet Take 50 mg by mouth every 6 (six) hours as needed for Pain. 10/18/2019 traMADol 50 MG tabletIndications :Acute Pain < 3 Day Supply Indications: Acute Pain < 3 Day Supply 1-2 every 6 hours as needed for pain 12 tablet 07/11/2019 09/21/2019 TRUE METRIX BLOOD GLUCOSE TEST test strip 10/25/2018 09/28/2019 documented as of this encounter ED Notes * Shayna Esquivel RN - 07/11/2019 6:[address] * Shayna Esquivel RN - 07/11/2019 5:16 PM CDT Consent for iv contrast signed per pt. * Shayna Esquivel RN - 07/11/2019 5:10 PM CDT Pt ambulates to br to void, clear yellow specimen sent to lab. * Sujey Coronado RN - 07/11/2019 4:37 PM CDT Rt side abdominal pain. Onset 3 days ago. Radiates to left side with palpation. BM's normal. Appetite normal. Rates 8/10 when pain occurs. Describes as a sharp pain. States pain comes and goes. Abdominal pain is continuous 07/26. Milo dysuria. * Bj Salinas MD - 07/11/2019 4:36 PM CDT eMERGENCY dEPARTMENT eNCOUnter I, isaias Orosco, am personally taking down the notes in the presence of Bj Salinas MD.?Take no action on this note until reviewed and authenticated??by the physician. CHIEF COMPLAINT Chief Complaint Patient presents with ??? Abdominal Pain HPI The patient is a 59 year old male with a PMHx of hypertension, AFIB, CAD, diabetes, hyperlipidemia,and cardiac stents, presents to the ED for evaluation of left sided abdominal pain onset 3 days ago. The patient states that this pain is sharp in nature and that when you push on the left abdomen hecan fell the pain on the right side. The patient endorses nausea. The patient denies any fever, vomiting, or urinary symptoms. The patient denies any complaint, distress or injury in addition to those already recorded. The patient is otherwise in their baseline state of health and no other positivecomplaints were stated upon review of systems. 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 Doxycycline Other (see comment) Blisters in the mouth ? ? Tetracyclines & Related Other (see comment) Blisters in the mouth CURRENT MEDICATIONS Current Outpatient Medications Medication Sig ??? amitriptyline 50 MG tablet Take 50 mg by mouth nightly at bedtime. ??? aspirin EC 81 MG tablet Take 1 tablet (81 mg total) by mouth daily. ??? atorvastatin 40 MG tablet Take 40 mg by mouth daily. ??? furosemide 20 MG tablet Take 20 mg by mouth daily. ??? HUMALOG 100 UNIT/ML injection (VIAL) Inject 20 Units into the skin nightly at bedtime. ??? isosorbide mononitrate ER 30 MG 24 hr tablet Take 1 tablet (30 mg total) by mouth daily. ??? LEVEMIR 100 UNIT/ML injection Inject 20 Units into the skin 3 (three) times daily with meals. ??? metFORMIN 850 MG tablet Take 850 mg by mouth 3 (three) times a day. ??? METOPROLOL SUCCINATE ER 50 MG 24 hr tablet TAKE ONE TABLET BY MOUTH 2 TIMES A DAY. (Patient taking differently: TAKE ONE TABLET BY MOUTH once daily) ??? nitroglycerin 0.[address] 1 tablet (0.4 mg total) under the tongue every 5 (five) minutes as needed for Chest Pain. ??? PRADAXA 150 MG Cap TAKE ONE CAPSULE BY MOUTH TWICE A DAY ??? ranitidine 150 MG tablet Take 150 mg by mouth 2 (two) times daily. ??? spironolactone 25 MG tablet Take 25 mg by mouth daily. ??? tamsulosin 0.4 MG Cap Take 0.4 mg by mouth daily. ??? traMADol 50 MG tablet Take 50 mg by mouth every 6 (six) hours as needed for Pain. ? ? traMADol 50 MG tablet Indications: Acute Pain < 3 Day Supply 1-2 every 6 hours as needed forpain ??? gabapentin 300 MG capsule Take 300 mg by mouth 3 (three) times daily. ??? NOVOFINE 32G X 6 MM Misc ??? TRUE METRIX BLOOD GLUCOSE TEST test strip PAST MEDICAL HISTORY Past Medical History: Diagnosis [...] and vomiting) ??? SOB (shortness of breath) SURGICAL HISTORY Past Surgical History: Procedure Laterality Date ??? CARDIAC CATHETERIZATION 01/04/2018 occluded prox RCA w/well developed [id number] collaterals lvef 55-60% ??? FRACTURE SURGERY ??? HERNIA REPAIR ??? KNEE ARTHROPLASTY ??? LITHOTRIPSY ??? XA ABLATION 05/19/2016 ??? XA CORONARY INTERVENTION 03/24/[address] Cleary SOCIAL HISTORY Social History Socioeconomic History ??? Marital status: Spouse name: Not on file ??? Number of children: 1 ??? Years of education: Not on file ??? Highest education level: Not on file Occupational History ??? 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 Financial resource strain: Not [...] file Gets together: Not on file Attends judaism service: Not on file Active member of [...] Social History Narrative ??? Not on file FAMILY HISTORY Family History Family history unknown: Yes REVIEW OF SYSTEMS Review of Systems Constitutional: Negative for fever. HENT: Negative. Eyes: Negative. Respiratory: Negative. Cardiovascular: Negative. Gastrointestinal: Positive for abdominal pain and nausea. Negative for vomiting. Endocrine: Negative. Genitourinary: Negative. Musculoskeletal: Negative. Skin: Negative. Allergic/Immunologic: Negative. Neurological: Negative. Hematological: Negative. Psychiatric/Behavioral: Negative. All other ROS negative unless noted above in HPI. PHYSICAL EXAM Physical Exam Constitutional: He is oriented to person, place, and time. He appears well- developed and well-nourished. No distress. HENT: Head: Normocephalic and atraumatic. Eyes: EOM are normal. Neck: Normal range of motion. Cardiovascular: Normal rate, regular rhythm and normal heart sounds. Pulmonary/Chest: Effort normal and breath sounds normal. Abdominal: Bowel sounds are decreased. There is tenderness in the left lower quadrant. There is guarding. There is no rebound. Musculoskeletal: Normal range of motion. Neurological: He is alert and oriented to person, place, and time. Skin: Skin is warm and dry. Psychiatric: He has a normal mood and affect. His behavior is normal. Nursing note and vitals reviewed. Filed Vitals: 07/11/19 1637 07/11/19 1800 BP: 148/81 141/88 Pulse: 86 Resp: 18 Temp: 97.2 ??F (36.2 ??C) TempSrc: Oral SpO2: 97% 93% Weight: 114.3 kg (252 lb) Height: 5' 11 (1.803 m) EKG RADIOLOGY CT ABD+PEL W IV CON ONLY Final Result by User, [id number] (07/10 1822) CT ABD+PEL W CON: 07/11/2019 6:08 PM CLINICAL INFORMATION: LLQ pain, suspect diverticulitis right-sided abdominal pain for 3 days COMPARISON: No relevant studies available for comparison. TECHNIQUE: Computed tomography of the abdomen, and pelvis was performed before after the administration of 95 mL Isovue-370 contrast according to routine protocol without immediate complication. A dose lowering technique was used for this procedure, which may include, but is not limited to, dose reduction technique, automated exposure control, the use of iterative reconstruction, and ALARA (As Low As Reasonably Achievable) / Image Gently techniques. Oral contrast: No oral contrast administered. FINDINGS: Lower Chest: No infiltrate. No pleural effusion. Abdomen: Liver: within normal limits. Bile Ducts: Normal caliber. Gallbladder: No calcified gallstones. Normal caliber wall. Pancreas: No pancreatic ductal dilatation. No discrete mass. Spleen: No evidence of splenomegaly. Adrenals: No suspicious adrenal enlargement. Kidneys: Nonobstructing 5 mm calculus lower pole calyx left kidney. Pelvis: Reproductive Organs: No pelvic masses. Ureters: within normal limits. Bladder: within normal limits. Appendix: No evidence of appendicitis. Bowel: No evidence of any small bowel distention. Scattered diverticuli predominantly descending and sigmoid colon. No convincing CT evidence of diverticulitis. Mesenteric Lymph Nodes: No enlarged mesenteric lymph nodes. Peritoneum: No ascites or free air, no fluid collection. Vessels: There is minimal left sclerotic change in the aorta. No evidence of aneurysm formation. Retroperitoneum: within normal limits. Abdominal Wall: within normal limits. Bones: There are degenerative changes in the lower dorsal, upper lumbar spine. Disc space narrowing L5-S1. No osseous destructive lesions. IMPRESSION: 1. No acute intra-abdominal process. 2. Colonic diverticulosis without evidence of diverticulitis. Interpreted By: Clementine Simmons MD, 07/11/2019 6:16 PM LABS Results for orders placed or performed during the hospital encounter of 07/11/19 COMPREHENSIVE METABOLIC PANEL Result Value Ref Range SODIUM 139 136 - 145 MMOL/L POTASSIUM 4.5 3.5 - 5.1 MMOL/L CHLORIDE S/P/B 102 98 - 107 MMOL/L CO2 26.9 21.0 - 32.0 MMOL/L GLUCOSE 121 (H) 70 - 99 MG/DL BUN 14 6 - 24 MG/DL CREATININE S/P/B 0.76 0.70 - 1.30 MG/DL CALCIUM 9.3 8.4 - 10.5 MG/DL TOTAL BILIRUBIN S/P/B 0.3 0.2 - 1.0 MG/DL ALK PHOS 73 45 - 115 U/L AST 17 15 - 37 U/L ALT 34 16 - 63 U/L TOTAL PROTEIN 6.9 6.4 - 8.2 G/DL ALBUMIN S/P/B 3.2 (L) 3.4 - 5.0 G/DL ANION GAP 10.1 5.0 - 15.0 MMOL/L OSMOLALITY (CALC) 290 MOSM/KG eGFR Non-Afr. Amer. >90 >89 ML/MIN/1.73 M2 eGFR Afr. Amer. >90 >89 ML/MIN/1.73 M2 GFR NOTES GFR REFERENCES: CBC W/DIFF AUTOMATED Result Value Ref Range WBC 6.9 4.5 - 10.8 x10'3/uL RBC 4.30 (L) 4.50 - 6.10 x10'6/uL HGB 11.9 (L) 13.0 - 18.0 G/DL HCT 37.0 37.0 - 52.0 % MCV 86.0 78.0 - 100.0 FL MCH 27.7 27.0 - 31.0 PG MCHC 32.2 (L) 33.0 - 36.0 G/DL RDW 14.0 11.5 - 14.5 % PLT 305 150 - 350 x10'3/uL MPV 11.1 (H) 7.4 - 10.4 FL Differential Comment NORMAL REFERENCE RANGE NOT ESTABLISHED FOR THE PROPORTIONAL LEUKOCYTE DIFFERENTIAL. SEG NEUTROPHILS 55.5 % LYMPHOCYTES 27.9 % MONOCYTES 13.3 % EOSINOPHILS 2.0 % BASOPHILS 1.0 % IMMATURE GRANS 0.3 % NRBC 0.0 % ABS. NEUTROPHILS 3.83 1.60 - 8.30 x10'3/uL ABS. LYMPHOCYTES 1.93 0.80 - 4.70 x10'3/uL ABS. MONOCYTES 0.92 0.00 - 1.50 x10'3/uL ABS. EOSINOPHILS 0.14 0.00 - 0.40 x10'3/uL ABS. BASOPHILS 0.07 0.00 - 0.20 x10'3/uL ABS. IMMATURE GRANULOCYTES 0.02 0.00 - 0.03 x10'3/uL ABS. NUCLEATED RBC'S 0.00 0.00 x10'3/uL URINALYSIS WI REFLEX TO CULTURE Result Value Ref Range COLOR (U) YELLOW TRANSPARENCY CLEAR Specific [place] (U) 1.025 1.000 - 1.025 U PH 7.0 5.0 - 8.0 LEUKOCYTE ESTERASE NEGATIVE NEGATIVE NITRITES NEGATIVE NEGATIVE PROTEIN(U) NEGATIVE NEGATIVE URINE GLUCOSE 1+ (A) NEGATIVE U KETONES NEGATIVE NEGATIVE UROBILINOGEN 0.2 <1.0 EU/DL BILIRUBIN (U) NEGATIVE NEGATIVE BLOOD NEGATIVE NEGATIVE WBC/HPF 0-5 0 - 5 /HPF RBC/HPF 0-5 0 - 5 /HPF EPI/HPF MANY /LPF CULTURE & SENSITIVITY INDICATED? NOT INDICATED ED MEDICATIONS Medications iopamidol (ISOVUE-370) 76 % injection 95 mL (95 mLs Intravenous Given 07/11/191813) PROCEDURES Procedures CONSULTS: ED COURSE & MEDICAL DECISION MAKING MDM patient with abdominal pain left lower quadrant of several days of unclear etiology. His work-up including blood work urinalysis CT scan is all normal. Something was causing the pain but is been present for 3 days and at this point it seems as if he can be safely discharged home and continue tomonitor symptoms or follow-up with his primary care physician if worse in any way. FINAL IMPRESSION Medications iopamidol (ISOVUE-370) 76 % injection 95 mL (95 mLs Intravenous Given 07/11/19 1814) Current Discharge Medication List START taking these medications Details !! traMADol 50 MG tablet Indications: Acute Pain < 3 Day Supply 1-2 every 6 hours as needed for pain Qty: 12 tablet, Refills: 0 Class: Print Pharmacy: [facility]/pharmacy #[id number] - [place] - [address] ( #: [phone]) !! - Potential duplicate medications found. Please discuss with provider. Vernon Mercedes MD [address] [place] [id number] In 2 days If symptoms worsen SNOMED CT(R) 1. Left lower quadrant abdominal pain LEFT LOWER QUADRANT PAIN Vernon Mercedes MD [address] [place] [id number] In 2 days If symptoms worsen New Prescriptions TRAMADOL 50 MG TABLET Indications: Acute Pain < 3 Day Supply 1-2 every 6 hours as needed for pain Darnellmelissa Saucedo, 07/11/19, 18:34. Provider Attestation: Portions of this note were transcribed by the scribe. I, Bj Salinas, personally performed the history, physical exam and medical decision making; and confirmed the accuracy of the information inthe transcribed note. 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 MAKER HELPER Office Visit [facility] [place] [address] Jyoti Escobar MD [address] [place] [id number] documented as of this encounter Procedures Procedure Name Priority Date/Time Associated Diagnosis Comments CT ABD+PEL W CON STAT 07/11/2019 6:13 PM CDT URINALYSIS WI REFLEX TO CULTURE STAT 07/11/2019 5:10 PM CDT COMPREHENSIVE METABOLIC PANEL STAT 07/11/2019 5:00 PM CDT CBC W/DIFF AUTOMATED STAT 07/11/2019 5:00 PM CDT documented in this encounter Results * CT ABD+PEL W IV CON ONLY (07/11/2019 6:13 PM CDT) Anatomical Region Laterality Modality Abdomen Computed Tomogra phy 07/11/2019 6:16 PM CDT Impressions 07/11/2019 6:22 PM CDT IMPRESSION: 1. ??No acute intra-abdominal process. 2. ??Colonic diverticulosis without evidence of diverticulitis. Interpreted By: Clementine Simmons MD, 07/11/2019 6:16 PM Narrative 07/11/2019 6:[address] ABD+PEL W CON: 07/11/2019 6:08 PM CLINICAL INFORMATION: LLQ pain, suspect diverticulitis right-sided abdominal pain for 3 days COMPARISON: No relevant studies available for comparison. TECHNIQUE: Computed tomography of the ??abdomen, and pelvis was performed before after the administration of 95 mL Isovue-370 contrast according to routine protocol without immediate complication. A dose lowering technique was used for this procedure, which may include, but is not limited to, dose reduction technique, automated exposure control, the use of iterative reconstruction, and ALARA (As Low As Reasonably Achievable) / Image Gently techniques. Oral contrast: No oral contrast administered. ?? FINDINGS: Lower Chest: No infiltrate. ??No pleural effusion. Abdomen: Liver: within normal limits. Bile Ducts: Normal caliber. Gallbladder: No calcified gallstones. Normal caliber wall. Pancreas: No pancreatic ductal dilatation. No discrete mass. Spleen: No evidence of splenomegaly. Adrenals: No suspicious adrenal enlargement. Kidneys: Nonobstructing 5 mm calculus lower pole calyx left kidney. Pelvis: Reproductive Organs: No pelvic masses. Ureters: within normal limits. Bladder: within normal limits. Appendix: No evidence of appendicitis. Bowel: No evidence of any small bowel distention. ??Scattered diverticuli predominantly descending and sigmoid colon. ??No convincing CT evidence of diverticulitis. Mesenteric Lymph Nodes: No enlarged mesenteric lymph nodes. Peritoneum: No ascites or free air, no fluid collection. Vessels: There is minimal left sclerotic change in the aorta. ??No evidence of aneurysm formation. Retroperitoneum: within normal limits. Abdominal Wall: within normal limits. Bones: There are degenerative changes in the lower dorsal, upper lumbar spine. ??Disc space narrowing L5-S1. ??No osseous destructive lesions. ?? Procedure Note Clementine Simmons MD - 07/11/2019 CT ABD+PEL W CON: 07/11/2019 6:08 PM CLINICAL INFORMATION: LLQ pain, suspect diverticulitis right-sidedabdominal pain for 3 days COMPARISON: No relevant studies available for comparison. TECHNIQUE: Computed tomography of the abdomen, and pelvis was performedbefore after the administration of 95 mL Isovue-370 contrast according toroutine protocol without immediate complication. A dose lowering techniquewas used for this procedure, which may include, but is not limited to,dose reduction technique, automated exposure control, the use of iterativereconstruction, and ALARA (As Low As Reasonably Achievable) / Image Gentlytechniques. Oral contrast: No oral contrast administered. FINDINGS: Lower Chest: No infiltrate. No pleural effusion. Abdomen: Liver: within normal limits. Bile Ducts: Normal caliber. Gallbladder: No calcified gallstones. Normal caliber wall. Pancreas: No pancreatic ductal dilatation. No discrete mass. Spleen: No evidence of splenomegaly. Adrenals: No suspicious adrenal enlargement. Kidneys: Nonobstructing 5 mm calculus lower pole calyx left kidney. Pelvis: Reproductive Organs: No pelvic masses. Ureters: within normal limits. Bladder: within normal limits. Appendix: No evidence of appendicitis. Bowel: No evidence of any small bowel distention. Scattered diverticulipredominantly descending and sigmoid colon. No convincing CT evidence ofdiverticulitis. Mesenteric Lymph Nodes: No enlarged mesenteric lymph nodes. Peritoneum: No ascites or free air, no fluid collection. Vessels: There is minimal left sclerotic change in the aorta. No evidenceof aneurysm formation. Retroperitoneum: within normal limits. Abdominal Wall: within normal limits. Bones: There are degenerative changes in the lower dorsal, upper lumbarspine. Disc space narrowing L5-S1. No osseous destructive lesions. IMPRESSION: 1. No acute intra-abdominal process. 2. Colonic diverticulosis without evidence of diverticulitis. Interpreted By: Clementine Simmons MD, 07/11/2019 6:16 PM Bj Salinas MD CT Final Result * (ABNORMAL) URINALYSIS WI REFLEX TO CULTURE (07/11/2019 5:10 PM CDT) COLOR (U) YELLOW 07/11/2019 5:27 PM CDT [facility] TRANSPARENCY CLEAR 07/11/2019 5:27 PM CDT [facility] SPECIFIC GRAVITY (U) 1.025 1.000 - 1.025 07/11/2019 5:27 PM CDT [facility] U PH 7.0 5.0 - 8.0 07/11/2019 5:27 PM CDT [facility] LEUKOCYTES (U) NEGATIVE NEGATIVE 07/11/2019 5:27 PM CDT [facility] NITRITES NEGATIVE NEGATIVE 07/11/2019 5:27 PM CDT [facility] PROTEIN (U) NEGATIVE NEGATIVE 07/11/2019 5:27 PM CDT [facility] URINE GLUCOSE 1+(A) NEGATIVE 07/11/2019 5:27 PM CDT [facility] KETONES MG/DL (U) NEGATIVE NEGATIVE 07/11/2019 5:27 PM CDT [facility] UROBILINOGEN 0.2 <1.0 EU/DL 07/11/2019 5:27 PM CDT [facility] BILIRUBIN (U) NEGATIVE NEGATIVE 07/11/2019 5:27 PM CDT [facility] BLOOD (U) NEGATIVE NEGATIVE 07/11/2019 5:27 PM CDT [facility] WBC/HPF 0-5 0 - 5 /HPF 07/11/2019 5:27 PM CDT [facility] RBC/HPF 0-5 0 - 5 /HPF 07/11/2019 5:27 PM CDT [facility] EPI/HPF MANY /LPF 07/11/2019 5:27 PM CDT [facility] CULTURE & SENSITIVITY INDICATED? NOT INDICATED 07/11/2019 5:27 PM CDT [facility] URINE SPECIMEN OBTAINED BY CLEAN CATCH PROCEDURE / Unknown 07/11/2019 5:10 PM CDT Bj Salinas MD URINE ORDERABLES Final Result [facility] [address] [place] [address], * (ABNORMAL) CBC W/DIFF AUTOMATED (07/11/2019 5:00 PM CDT) WBC 6.9 4.5 - 10.8 x10'3/uL 07/11/2019 5:13 PM CDT [facility] RBC 4.30(L) 4.50 - 6.10 x10'6/uL 07/11/2019 5:13 PM CDT [facility] HGB 11.9(L) 13.0 - 18.0 G/DL 07/11/2019 5:13 PM CDT [facility] HCT 37.0 37.0 - 52.0 % 07/11/2019 5:13 PM CDT [facility] MCV 86.0 78.0 - 100.0 FL 07/11/2019 5:13 PM CDT [facility] MCH 27.7 27.0 - 31.0 PG 07/11/2019 5:13 PM CDT [facility] MCHC 32.2(L) 33.0 - 36.0 G/DL 07/11/2019 5:13 PM CDT [facility] RDW 14.0 11.5 - 14.5 % 07/11/2019 5:13 PM CDT [facility] PLT 305 150 - 350 x10'3/uL 07/11/2019 5:13 PM CDT [facility] MPV 11.1(H) 7.4 - 10.4 FL 07/11/2019 5:13 PM CDT [facility] DIFFERENTIAL COMMENT NORMAL REFERENCE RANGE NOT ESTABLISHED FOR THE PROPORTIONAL LEUKOCYTE DIFFERENTIAL. 07/11/2019 5:13 PM CDT [facility] SEG NEUTROPHILS 55.5 % 0 5:13 PM CDT [facility] LYMPHOCYTES 27.9 % 07/11/2019 5:13 PM CDT [facility] MONOCYTES 13.3 % 07/11/2019 5:13 PM CDT [facility] EOSINOPHILS 2.0 % 07/11/2019 5:13 PM CDT [facility] BASOPHILS 1.0 % 07/11/2019 5:13 PM CDT [facility] IMMATURE GRANS % 0.3 % 07/11/19 20 5:13 PM CDT [facility] NRBC 0.0 % 07/11/2019 5:13 PM CDT [facility] ABS. NEUTROPHILS 3.83 1.60 - 8.30 x10'3/uL 07/11/2019 5:13 PM CDT [facility] ABS. LYMPHOCYTES 1.93 0.80 - 4.70 x10'3/uL 07/11/2019 5:13 PM CDT [facility] ABS. MONOCYTES 0.92 0.00 - 1.50 x10'3/uL 07/11/2019 5:13 PM CDT [facility] ABS. EOSINOPHILS 0.14 0.00 - 0.40 x10'3/uL 07/11/2019 5:13 PM CDT [facility] ABS. BASOPHILS 0.07 0.00 - 0.20 x10'3/uL 07/11/2019 5:13 PM CDT [facility] ABS. IMMATURE GRANULOCYTES 0.02 0.00 - 0.03 x10'3/uL 07/11/2019 5:13 PM CDT [facility] ABS. NUCLEATED RBC'S 0.00 0.00 x10'3/uL 07/11/2019 5:13 PM CDT [facility] 07/11/2019 5:00 PM CDT us Bj Salinas MD LABORATORY Final Result [facility] [address] [place] [id number], * (ABNORMAL) COMPREHENSIVE METABOLIC PANEL (07/11/2019 5:00 PM CDT) SODIUM S/P/B 139 136 - 145 MMOL/L 07/11/2019 6:01 PM CDT [facility] POTASSIUM S/P/B 4.5 3.5 - 5.1 MMOL/L 07/11/2019 6:01 PM CDT [facility] CHLORIDE S/P/B 102 98 - 107 MMOL/L 07/11/2019 6:01 PM CDT [facility] CO2 26.9 21.0 - 32.0 MMOL/L 07/11/2019 6:01 PM CDT [facility] GLUCOSE 121(H) 70 - 99 MG/DL 07/11/2019 6:01 PM CDT [facility] Comment: FASTING GLUCOSE 100 TO 125 MG/DL IS CONSISTENT WITH IMPAIRED FASTING GLUCOSE. FASTING GLUCOSE >125 MG/DL IS CONSISTENT WITH DIABETES. RANDOM GLUCOSE >200 MG/DL WITH HYPERGLYCEMIC SYMPTOMS IS CONSISTENT WITH DIABETES. PER ADA GUIDELINES BUN 14 6 - 24 MG/DL 07/11/2019 6:01 PM CDT [facility] CREATININE S/P/B 0.76 0.70 - 1.30 MG/DL 07/11/2019 6:01 PM CDT [facility] CALCIUM S/P/B 9.3 8.4 - 10.5 MG/DL 07/11/2019 6:01 PM [facility] BILIRUBIN TOTAL S/P/B 0.3 0.2 - 1.0 MG/DL 07/11/2019 6:01 PM [facility] Comment: THIS ASSAY IS NOT RECOMMENDED FOR PATIENTS UNDERGOING TREATMENT WITH ELTROMBOPAG DUE TO THE POTENTIAL FOR FALSELY ELEVATED RESULTS. ALKALINE PHOSPHATASE S/P/B 73 45 - 115 U/L 07/11/2019 6:01 PM [facility] AST 17 15 - 37 U/L 07/11/2019 6:01 PM [facility] ALT 34 16 - 63 U/L 07/11/2019 6:01 PM [facility] TOTAL PROTEIN S/P/B 6.9 6.4 - 8.2 G/DL 07/11/2019 6:01 PM [facility] ALBUMIN S/P/B 3.2(L) 3.4 - 5.0 G/DL 07/11/2019 6:01 PM [facility] ANION GAP 10.1 5.0 - 15.0 MMOL/L 07/11/2019 6:01 PM [facility] OSMOLALITY (CALC) 290 MOSM/KG 020 6:01 PM [facility] Comment:REFERENCE RANGE NOT ESTABLISHED EGFR NON-AFR. AMER. >90 >89 ML/MIN/1. 73 M2 07/11/2019 6:01 PM [facility] EGFR AFR. AMER. >90 >89 ML/MIN/1. 73 M2 07/11/2019 6:01 PM [facility] GFR NOTES GFR REFERENCE S: 07/11/2019 6:01 PM [facility] Comment: THE ESTIMATED GFR IS [...] ml/min/1.73 m2 G5,KIDNEY FAILURE: <15 ml/min/1.73 m2 07/11/2019 5:00 PM CDT Bj Salinas MD LABORATORY Final Result [facility] [address] [place] [address], documented in this encounter Visit Diagnoses Diagnosis Left lower quadrant abdominal pain- Primary documented in this encounter Administered Medications Inactive Administered Medications - up to 3 most recent administrations Medication Order MAR Action Action Date Dose Rate Site iopamidol (ISOVUE-370) 76 % injection 95 mL 95 mL, Intravenous, IMG once as needed, Contrast, 1 dose, Starting on Tue07/11/19 at 1813, Until Tue07/11/19 at 1814 Given 07/11/2019 6:14 PM CDT 95 mLs Left Arm documented in this encounter Active and Recently Administered Medications Times are shown in CDT. PRN Medication Order 07/09/2019 07/10/2019 07/11/2019 iopamidol (ISOVUE-370) 76 % injection 95 mL (COMPLETED) 95 mL, Intravenous, IMG once as needed, Contrast, 1 dose, Starting on Tue07/11/19 at 1813, Until Tue07/11/19 at 1814 1814 (Given - Provid er: Amalia Colon RTR) documented in this encounter Additional Health Concerns Infection Onset Date Last Indicated Resolved Time MRSA Comment:Negative MRSA 05/201903/11/2017 03/11/2017 10/03/2019 10:08 AM CDT documented as of this encounter Care Teams Pet Supplies Salesperson Relationship Specialty Start Date End Date Vernon Mercedes MD [address] [place] [phone] PCP - General FAMILY PRACTICE 10/27/15 12/02/21 Evaristo Allan MD [address] [place] [address] Sunset Predatory Hunter CARDIOVASCULAR DISEASE 08/19/16 Raul Santana MD [address] [place] [address] CLINICAL CARDIAC ELECTROPHYSIOLOGY 06/16/17 Danny Blackwell MD [address] [place] [address] ORTHOPAEDIC SURGERY 05/01/19 documented as of this encounter
--- OUTSIDE RECORDS SUMMARY | 2024-04-23 04:29 | XMS_ITS | Encounter Summary ---
Author Organization [facility] Address [address] [place] [address]. [place], [place] [address] [place], [place] [id number] Care Team Providers Care Pilot Plant Technician Name Role Phone Vernon Mercedes MD Primary Care Provider Evaristo Allan MD Unavailable Unavailabl Raul Duran MD Unavailable Unavailabl Myah Gee NP Unavailable Unavailable Danny Blackwell MD Unavailable [phone] Reason for Visit * Reason Onset Date Comments Medication Information 05/29/2019 Praxada Encounter Details Date Type Department Care Team (Latest Contact Info) Description 05/29/2019 [facility] Documentation [facility] [place] [phone] Kady Vann RN Medication Information (Praxada) Social History Tobacco Use Types Packs/Day Years [...] Progress Notes * Kady Vann RN - 05/29/2019 5:39 PM CST Patient aware that last dose of Praxada on 06/14/2019. He verbalizes understanding and denies any questions. EM SUPPORT ANALYST documented in this encounter Plan of Treatment Upcoming Encounters Date Type Department Care Team (Late st Contact Info) Description 04/25/2024 11:00 AM SYSTEM SUPPORT ANALYST Appointment [facility] [address] [place] [address] Ti Bonilla MD [address] [place] [phone] 05/23/2024 3:30 PM SYSTEM SUPPORT ANALYST Office Visit [facility] [address] [place] [address] Jyoti Escobar MD [address] [place] [phone] documented as of this encounter Visit Diagnoses Not on filedocumented in this encounter Additional Health Concerns Infection Onset Date Last Indicated Resolved Time MRSA Comment:Negative MRSA 05/201903/11/2017 03/11/2017 10/03/2019 10:08 AM CDT documented as of this encounter Care Teams Pilot Plant Technician Relationship Specialty Start Date End Date Vernon Mercedes MD [address] [place] [address] PCP - General FAMILY PRACTICE 10/27/15 12/02/21 Evaristo Allan MD [facility] [place] [address] [place] Lawn Maintenance Worker CARDIOVASCULAR DISEASE 08/19/16 Raul Santana MD [facility] [place] [address] CLINICAL CARDIAC ELECTROPHYSIOLOGY 06/16/17 Myah Handley NP [facility] [place] [address] CARDIOVASCULAR DISEASE 06/16/17 07/10/19 Danny Blackwell MD [address] [place] [address] ORTHOPAEDIC SURGERY 05/01/19 documented as of this encounter
--- OUTSIDE RECORDS SUMMARY | 2024-04-23 04:29 | XMS_ITS | Encounter Summary ---
Author Organization [facility] Address [address] [place] [address]. [place] [address] [place] [address] Care Team Providers Care Web Programmer Name Role Phone Vernon Mercedes MD Primary Care Provider [phone] Evaristo Allan MD Unavailable UnavailRaul Suresh MD Unavailable Unavailabl Myah Gee NP Unavailable Unavailable Reason for Referral * Imaging (Routine) - Closed Specialty Diagnoses / Procedures Referred By Contac t Referred To Contact CARDIOLOGY Diagnoses Paroxysmal atrial fibrillation ([facility]) Procedures EVENT MONITOR 30 [place] [address] [place] [address] [place] [address] Referral ID Status Reason Start Date Expiration Date Visits Re quested Visits Authorized [id number] Closed 12/07/2018 01/08/2020 1 1 Encounter Details Date Type Department Care Team (Late st Contact Info) Description 11/03/2018 Orders Only [facility] [address] [place] [address] Evaristo Allan MD Social History Tobacco Use [...] 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 [address] [place] [address] Ti Bonilla MD [address] [place] [phone] 05/23/2024 3:30 PM LAST TURNER Office Visit [facility] [address] [place] [address] Jyoti Escobar MD [address] [place] [phone] documented as of this encounter Procedures Procedure Name Priority Date/Time Associated Diagnosis Comments EVENT MONITOR 30 DAYS Routine 11/13/2018 Paroxysmal atrial fibrillation ([facility]) documented in this encounter Results * EVENT MONITOR 30 DAYS (11/13/2018) Evaristo NEGRETE Final Resul t documented in this encounter Visit Diagnoses Diagnosis Paroxysmal atrial fibrillation ([facility] HHS/HCC)- Primary Atrial fibrillation documented in this encounter Additional Health Concerns Infection Onset Date Last Indicated Resolved Time MRSA Comment:Negative MRSA 05/201903/11/2017 03/11/2017 10/03/2019 10:08 AM CDT documented as of this encounter Care Teams Web Programmer Relationship Specialty Start Date End Date Vernon Mercedes MD [address] [place] [phone] PCP - General FAMILY PRACTICE 10/27/15 12/02/21 Evaristo Allan MD [address] [place] [phone] [place] Bore Miner Operator CARDIOVASCULAR DISEASE 08/19/16 Raul Santana MD [address] [place] [address] CLINICAL CARDIAC ELECTROPHYSIOLOGY 06/16/17 Myah Handley NP [address] [place] [address] CARDIOVASCULAR DISEASE 06/16/17 07/10/19 documented as of this encounter
--- OUTSIDE RECORDS SUMMARY | 2024-04-23 04:29 | XMS_ITS | Encounter Summary ---
Author Organization [facility] Address [address] [place] [address]. [place], [place] [address] [place] [address] Care Team Providers Care Refueler Name Role Phone Vernon Mercedes MD Primary Care Provider [phone] Evaristo Allan MD Unavailable UnavailRaul Suresh MD Unavailable Unavailabl Myah Gee NP Unavailable Unavailable Reason for Visit * Reason Comments Knee Pain RIGHT Encounter Details Date Type Department Care Team (Late st Contact Info) Description 04/25/2019 4:45 PM PROCESS EQUIPMENT OPERATOR Office Visit [facility] [address], [place] [address] Danny Blackwell MD [address] [place] [address] Knee Pain (RIGHT) Social History Tobacco Use Types Packs/Day Years [...] 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 file Not on file documented as of this encounter Last Filed Vital Signs Vital Sign Reading Time Taken Comments Blood Pressure - - Pulse - - Temperature - - Respiratory Rate - - Oxygen Saturation - - Inhaled Oxygen Concentration - - Weight 113.4 kg (250 lb) 04/25/2019 4:36 PM PROCESS EQUIPMENT OPERATOR Height 177.8 cm (5' 10 ) 04/25/2019 4:36 PM PROCESS EQUIPMENT OPERATOR Body Mass Index 35.87 04/25/2019 4:36 PM PROCESS EQUIPMENT OPERATOR documented in this encounter Progress Notes * Danny Blackwell MD - 04/25/2019 4:45 PM CST Chief Complaint: Knee Pain (RIGHT) History of Present Illness: Evaristo Zelaya is a 59-year-old male who presents to the office for Knee Pain (RIGHT) Patient states RIGHT knee pain with sudden onset. He denies any injury. Patient has prior RIGHT knee replacement about 18-20 years ago. He states pain in entire knee. He states knee gives out frequently. Patient has history of PT and injections several years ago. He takes Tramadol for pain and is not using any assistive devices. ROS: See HPI for pertinent positives Problem List: Patient Active Problem List Diagnosis ??? Essential hypertension ??? Paroxysmal atrial fibrillation (CMS/HCC) ??? 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 Obstructive sleep apnea ??? Hyperlipidemia ??? Diabetes (CMS/HCC) ??? 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 Cardiovascular stress test abnormal ??? Arthritis of knee ??? Derangement of medial meniscus, left ??? Encounter for follow-up examination after completed treatment for conditions other than malignant neoplasm ??? Heartburn ??? Knee pain ??? Mechanical complication of internal orthopedic device, implant or graft, initial encounter ([facility]) ??? Patella-femoral syndrome ??? Pes anserine bursitis ??? Recurrent ventral incisional hernia ??? Abdominal pain ??? Failure of total knee replacement, initial encounter (CMS/HCC) History: Past Medical History: Diagnosis Date ??? [...] CATHETERIZATION 01/04/2018 occluded prox RCA w/well developed klrh-fn-hiyke collaterals lvef 55-60% ??? FRACTURE SURGERY ??? HERNIA REPAIR ??? KNEE ARTHROPLASTY ??? LITHOTRIPSY ??? XA ABLATION 05/19/2016 ??? XA CORONARY INTERVENTION 03/24/[address] Cleary Family History Family history unknown: Yes Family Status Relation Name Status ??? Mother Alive ??? Sister Alive ??? Brother Alive ??? Brother ??? Sister Alive ??? Father cancer Social History Socioeconomic History ??? Marital status: Spouse name: Not on file ??? Number of children: 1 ??? Years of education: Not on file ??? Highest education level: Not on file Occupational History ??? 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 Financial resource strain: Not [...] file Gets together: Not on file Attends restoration service: Not on file Active member of [...] ER 30 MG 24 hr tablet, Take 30 mg by mouth daily., Disp: , Rfl: ??? LEVEMIR 100 UNIT/ML injection, Inject 20 Units into the skin 3 (three) times daily with meals. , Disp: , Rfl: ??? metFORMIN 850 MG tablet, 850 mg 2 (two) times daily with meals. , Disp: , Rfl: ??? METOPROLOL SUCCINATE ER 50 MG 24 hr tablet, TAKE ONE TABLET BY MOUTH 2 TIMES A DAY., Disp: 180 tablet, Rfl: 3 ??? nitroglycerin 0.4 MG SL tablet, Place 1 tablet (0.4 mg total) under the tongue every 5 (five) minutes as needed for Chest Pain., Disp: 25 tablet, Rfl: 1 ??? NOVOFINE 32G X 6 MM Misc, , Disp: , Rfl: ??? PRADAXA 150 MG Cap, TAKE ONE CAPSULE BY MOUTH TWICE A DAY, Disp: 60 capsule, Rfl: 11 ??? ranitidine 150 MG tablet, Take 150 [...] the mouth Objective: Body mass index is 35.87 kg/m??. Last Recorded Weight 04/25/19 1636 Weight: 113.4 kg (250 lb) Physical exam: Constitutional: Alert and in no acute distress. Neurological: The patient was oriented to person, place, and time. Eyes: The sclera and conjunctiva were normal ENT: Hearing was normal. Neck: The appearance of the neck was normal. Cardiovascular: Normal pulses. Pulmonary: No respiratory distress. Skin: No injuries or skin lesion. Musculoskeletal: Patient demonstrates pain with weightbearing and an antalgic gait pattern. He has some mild tenderness with palpation of his proximal tibia. Range of motion is good and I do not see an effusion or erythema. No warmth about the knee. No hip pain is present. He describes decreased sensation in both feet consistent with neuropathy Results: X-rays were reviewed of the right knee which demonstrates some lytic areas underneath the tibial implant and femoral implants consistent with likely loosening. I will see any bony destruction and there does not appear to be any subsidence. Both implants are press-fit and the components remain well aligned Assessment: Encounter Diagnose(s) ICD-10-CM ICD-9-CM SNOMED CT(R) 1. Failure of total knee replacement, initial encounter ([facility]) T84.018A 996.47 PROSTHETIC JOINT MECHANICAL FAILURE Z96.659 V43.65 Procedure: Procedure: Aspiration of the Knee Joint on the right. Indications for the procedure include Joint Pain. The procedure's were discussed with the patient. Verbal consent was obtained prior to the procedure. Procedure Note: Evaristo was prepped and draped in the usual sterile fashion using alcohol and using betadine. Anesthesia: Ethyl chloride spray was used as a topical anesthetic. 20 mL of Cloudy and Yellow fluidwas aspirated with a 18-gauge. Dressing: A bandage was applied. Specimen: The aspirate was sent for Culture and was sent for Gram Stain Post-Procedure: the patient tolerated the procedure well. Complications: there were no complications. Follow-up in the office as needed. Plan: Patient describes start up pain and with his examination and imaging suggestive of loosening I think that is the likely cause of his knee pain. He does not indicate he is ready for revision surgery quite yet. I aspirated about 20 cc of fairly cloudy yellow fluid from his right knee and this was sent to lab for evaluation. This subsequently demonstrated 4000 white cells and no organisms on the Gram stain. Culture is pending. He will return depending on his pain Follow up: Return if symptoms worsen or fail to improve. DANNY BLACKWELL MD ESS EQUIPMENT OPERATOR ESS EQUIPMENT OPERATOR documented in this encounter Plan of Treatment Upcoming Encounters Date Type Department Care Team (Late st Contact Info) Description 04/25/2024 11:00 AM PROCESS EQUIPMENT OPERATOR Appointment [facility] [address] [place] [address] Ti Bonilla MD [address] [place] [phone] 05/23/2024 3:30 PM PROCESS EQUIPMENT OPERATOR Office Visit [facility] [address] [place] [phone] Jyoti Escobar MD [address] [place] [phone] documented as of this encounter Visit Diagnoses Diagnosis Failure of total knee replacement, initial encounter ([facility])- Primary documented in this encounter Additional Health Concerns Infection Onset Date Last Indicated Resolved Time MRSA Comment:Negative MRSA 05/201903/11/2017 03/11/2017 10/03/2019 10:08 AM CDT documented as of this encounter Care Teams Refueler Relationship Specialty Start Date End Date Vernon Mercedes MD [address] [place] [address] PCP - General FAMILY PRACTICE 10/27/15 12/02/21 [place] [address] [place] Wire Frame Lampshade Maker CARDIOVASCULAR DISEASE 08/19/16 [place] [address] CLINICAL CARDIAC ELECTROPHYSIOLOGY 06/16/17 [place] [address] CARDIOVASCULAR DISEASE 06/16/17 07/10/19 documented as of this encounter
--- OUTSIDE RECORDS SUMMARY | 2024-04-23 04:29 | XMS_ITS | Encounter Summary ---
Author Organization [facility] Address [address] [place] [address]. 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 [address] [place] [address] Ti Bonilla MD [address] [place] [phone] 05/23/2024 3:30 PM ORAL PATHOLOGIST [facility] [address] [place] [address] Jyoti Escobar MD [address] [place] [address] documented as of this encounter Visit Diagnoses Not on filedocumented in this encounter Additional Health Concerns Infection Onset Date Last Indicated Resolved Time MRSA Comment:Negative MRSA 05/201903/11/2017 03/11/2017 10/03/2019 10:08 AM CDT documented as of this encounter Care Teams Laborer Airport Maintenance Relationship Specialty Start Date End Date Vernon Mercedes MD [address] [place] [address] PCP - General FAMILY PRACTICE 10/27/15 12/02/21 [place] [address] [place] Tank Setter CARDIOVASCULAR DISEASE 08/19/16 [place] [address] CLINICAL CARDIAC ELECTROPHYSIOLOGY 06/16/17 Myah Handley [place] [address] CARDIOVASCULAR DISEASE 06/16/17 07/10/19 documented as of this encounter
--- OUTSIDE RECORDS SUMMARY | 2024-04-23 04:29 | XMS_ITS | Encounter Summary ---
Author Organization [facility] Address [address] [place] [address]. [place], [place] [address] [place] [address] Care Team Providers Care Hand Binder Stripper Name Role Phone Vernon Mercedes MD Primary Care Provider [phone] Evaristo Allan MD Unavailable UnavailRaul Suresh MD Unavailable Unavailabl Myah Gee NP Unavailable Unavailable Reason for Visit * Reason Onset Date Comments Holter Monitor 11/03/2018 Encounter Details Date Type Department Care Team (Late st Contact Info) Description 11/03/2018 Telephone [facility] [address] [place] [address] Evaristo Allan MD Holter Monitor Social History Tobacco Use Types [...] 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 He is agreeable , they will send pt the monitor documented in this encounter Plan of Treatment Upcoming Encounters Date Type Department Care Team (Late st Contact Info) Description 04/25/2024 11:00 AM [address] B[address]ER App[address] [facility] [address] [place] [address] Ti Bonilla MD [address] [place] [phone] 05/23/2024 3:30 PM SPRING BENDER Office Visit [facility] [address] [place] [address] Jyoti Escobar MD [address] [place] [phone] documented as of this encounter Visit Diagnoses Not on filedocumented in this encounter Additional Health Concerns Infection Onset Date Last Indicated Resolved Time MRSA Comment:Negative MRSA 05/201903/11/2017 03/11/2017 10/03/2019 10:08 AM CDT documented as of this encounter Care Teams Hand Binder Stripper Relationship Specialty Start Date End Date Veronn Mercedes MD [address] [place] [address] PCP - General FAMILY PRACTICE 10/27/15 12/02/21 [place] [address] [place] Sales Advisory Manager CARDIOVASCULAR DISEASE 08/19/16 [place] [address] CLINICAL CARDIAC ELECTROPHYSIOLOGY 06/16/17 [place] [address] CARDIOVASCULAR DISEASE 06/16/17 07/10/19 documented as of this encounter
--- OUTSIDE RECORDS SUMMARY | 2024-04-23 04:29 | XMS_ITS | Encounter Summary ---
Author Organization [facility] Address [address] [place] [address]. 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 [place] [place] [address] Ti Bonilla MD [address] [place] [phone] 05/23/2024 3:30 PM CHILDCARE TEACHER Office Visit [facility] [address] [place] [address] Jyoti Escobar MD [address] [place] [address] documented as of this encounter Visit Diagnoses Not on filedocumented in this encounter Additional Health Concerns Infection Onset Date Last Indicated Resolved Time MRSA Comment:Negative MRSA 05/201903/11/2017 03/11/2017 10/03/2019 10:08 AM CDT documented as of this encounter Care Teams B Operator Relationship Specialty Start Date End Date Vernon Mercedes MD [address] [place] [address] PCP - General FAMILY PRACTICE 10/27/15 12/02/21 Evaristo Allan MD [facility] [place] [address] [place] Management Architect CARDIOVASCULAR DISEASE 08/19/16 Raul Santana MD [facility] [place] [address] CLINICAL CARDIAC ELECTROPHYSIOLOGY 06/16/17 Myah Handley DEPUTY MANAGER [facility] [place] [address] CARDIOVASCULAR DISEASE 06/16/17 07/10/19 Danny Blackwell MD 5 [place] [address] ORTHOPAEDIC SURGERY 05/01/19 documented as of this encounter
--- OUTSIDE RECORDS SUMMARY | 2024-04-23 04:29 | XMS_ITS | Encounter Summary ---
Author Organization [facility] Address [address] [place] [address]. [place] [address] [place] [address] Care Team Providers Care Director Of Psychiatry Name Role Phone Vernon Mercedes MD Primary Care Provider [phone] Stanislaw Rhodes MD Unavailable Unavailab Evaristo Ying MD Unavailable UnavailRaul Suresh MD Unavailable UnavailMyah Elena NP Unavailable Unavailable Deven Cleary MD Unavailable Unavailable Encounter Details Date Type Department Care Team (Late st Contact Info) Description 05/05/2018 Orders Only [facility] [address] [place] [address] Mendel Hobbs, RN Social History Tobacco Use Types Packs/Day [...] 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 [address] [place] [address] Ti Bonilla MD [address] [place] [phone] 05/23/2024 3:30 PM LANDSCAPING MANAGER [facility] [address] [place] [address] Jyoti Escobar MD [address] [place] [address] documented as of this encounter Visit Diagnoses Not on filedocumented in this encounter Additional Health Concerns Infection Onset Date Last Indicated Resolved Time MRSA Comment:Negative MRSA 05/201903/11/2017 03/11/2017 10/03/2019 10:08 AM CDT documented as of this encounter Care Teams Director Of Psychiatry Relationship Specialty Start Date End Date Vernon Mercedes MD [address] [place] [address] PCP - General FAMILY PRACTICE 10/27/15 12/02/21 [place] [address] CARDIOVASCULAR DISEASE 10/27/15 10/24/18 [place] [address] [place] Bin Operator CARDIOVASCULAR DISEASE 08/19/16 [place] [address] CLINICAL CARDIAC ELECTROPHYSIOLOGY 06/16/17 Myah Handley TYING IN [place] [address] CARDIOVASCULAR DISEASE 06/16/17 07/10/19 [place] [address] [address] Police Dispatcher INTERVENTIONAL CARDIOLOGY 03/21/18 10/24/18 documented as of this encounter
--- OUTSIDE RECORDS SUMMARY | 2024-04-23 04:29 | XMS_ITS | Encounter Summary ---
Author Organization [facility] Address [address] [place] [address]. [place], [place] [address] [place] [address] Care Team Providers Care Certified Alcohol Counselor Name Role Phone Vernon Mercedes MD Primary Care Provider [phone] Elza Allan MD Unavailable UnavailRaul Suresh MD Unavailable UnavailMyah Elena NP Unavailable Unavailable Danny Blackwell MD Unavailable [phone] Encounter Details Date Type Department Care Team (Latest Contact Info) Description 06/12/2019 10:24 AM BATTER OUT - 06/12/2019 11:59 PM [facility] Hospital En[facility] [address] [facility] [place] [address] Danny Blackwell MD [address] [place] [address] Discharge Disposition: Home or Self [...] on file documented as of this encounter Medications at [...] ER 30 MG 24 hr tablet Take 30 mg by mouth daily. 07/10/2019 LEVEMIR 100 UNIT/ML injection Inject 44 Units [...] (six) hours as needed for Pain. 10/18/2019 TRUE METRIX BLOOD GLUCOSE TEST test strip 10/25/2018 09/28/2019 documented as of this encounter Plan of Treatment Upcoming Encounters Date Type Department Care Team (Late st Contact Info) Description 04/25/2024 11:00 AM BATTER OUT Appointment [facility] [address] [place] [address] Ti Bonilla MD [address] [place] [phone] 05/23/2024 3:30 PM BATTER OUT Office Visit [facility] [address] [place] [address] Jyoti Escobar MD [address] [place] [address] documented as of this encounter Procedures Procedure Name Priority Date/Time Associated Diagnosis Comments ECG 12-LEAD Routine 06/12/2019 10:54 AM BATTER OUT Essential hypertension documented in this encounter Results * ECG 12 lead (06/12/2019 10:54 AM BATTER OUT) 06/12/2019 10:5 4 AM BATTER OUT Narrative [facility] - 06/12/2019 12:27 PM BATTER OUT ? [facility] ?[address] [place], [place] ??[address] ? Test Date: ?2019-06-12 Pat Name: ? ELZA MCKEON ? Department: ? Room: ? Gender: ? Male ? 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 : ?1960 ? Requested By: DANNY CAREER ORIENTATION TEACHER Order Number: [id number] ? Reading MD: ?? Elza Allan ? Measurements Intervals ?[place] ? Rate: ? 79 ? P: ?45 FL: ? 114 ?QRS: ?73 QRSD: ? 124 ?T: ?25 QT: ? 377 ? QTc: ?433 ? 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: : 1960 Requested By: DANNY BLACKWELL Order Number: [id number] Reading MD: Elza Allan Measurements Intervals [place] Rate: 79 P: 45 FL: 114 QRS: 73 QRSD: 124 T: 25 QT: 377 QTc: 433 Interpretive Statements SINUS RHYTHM WITH SHORT FL INTERVAL WITH OCCASIONAL SUPRAVENTRICULAR PREMATURE COMPLEXES RIGHT BUNDLE BRANCH BLOCK ER OUT us Danny Blackwell MD ECG ORDERABLES Final Result [facility] documented in this encounter Visit Diagnoses Diagnosis Essential hypertension Unspecified essential hypertension documented in this encounter Additional Health Concerns Infection Onset Date Last Indicated Resolved Time MRSA Comment:Negative MRSA 05/201903/11/2017 03/11/2017 10/03/2019 10:08 AM CDT documented as of this encounter Care Teams Certified Alcohol Counselor Relationship Specialty Start Date End Date Vernon Mercedes MD [address] [place] [address] PCP - General FAMILY PRACTICE 10/27/15 12/02/21 [place] [address] [place] [employer] Engine Mechanic CARDIOVASCULAR DISEASE 08/19/16 Ra[place] [address] [address] CLINICAL CARDIAC ELECTROPHYSIOLOGY 06/16/17 [place] [address] CARDIOVASCULAR DISEASE 06/16/17 07/10/19 Danny Blackwell MD [address] [place] [address] ORTHOPAEDIC SURGERY 05/01/19 documented as of this encounter
--- OUTSIDE RECORDS SUMMARY | 2024-04-23 04:29 | XMS_ITS | Encounter Summary ---
Author Organization [facility] Address [address] [place] [address]. [place], [place] [address] [place] [address] Care Team Providers Care Precision Agronomist Name Role Phone Vernon Mercedes MD Primary Care Provider [phone] Evaristo Allan MD Unavailable UnavailRaul Suresh MD Unavailable UnavailMyah Elena NP Unavailable Unavailable Encounter Details Date Type Department Care Team (Latest Contact Info) Description 04/25/2019 4:01 PM PHILOSOPHY FACULTY MEMBER - 04/25/2019 6:11 PM PHILOSOPHY FACULTY MEMBER Hospital Encounter [facility] [address] [place] [address] Danny Blackwell MD [address] [place] [address] Discharge Disposition: Home or Self [...] st Contact Info) Description 04/25/2024 11:00 AM PHILOSOPHY FACULTY MEMBER Appointment [facility] [address] [place] [address] Ti Bonilla MD [address] [place] [address] 05/23/2024 3:30 PM PHILOSOPHY FACULTY MEMBER Office Visit [facility] [address] [facility] [place] [address] Jyoti Escobar MD [address] [place] [address] documented as of this encounter Procedures Procedure Name Priority Date/Time Associated Diagnosis Comments XR KNEE STAND AP VANITA ONLY Routine 04/25/2019 4:24 PM PHILOSOPHY FACULTY MEMBER Right knee pain XR KNEE RT 2V Routine 04/25/2019 4:24 PM PHILOSOPHY FACULTY MEMBER Right knee pain documented in this encounter Results * XR KNEE STAND AP VANITA ONLY (04/25/2019 4:24 PM PHILOSOPHY FACULTY MEMBER) Anatomical Region Laterality Modality Knee Radiographic Shannan ging 04/26/2019 4:5 9 PM PHILOSOPHY FACULTY MEMBER Impressions 04/26/2019 5:04 PM PHILOSOPHY FACULTY MEMBER IMPRESSION: Stable bilateral knee arthroplasty hardware. Additional stable findings. Interpreted By: Chari Grewal MD, 04/26/2019 4:59 PM Narrative 04/26/2019 5:04 PM PHILOSOPHY FACULTY MEMBER EXAMINATION: ??BILATERAL STANDING KNEES AND DEDICATED RIGHT KNEE RADIOGRAPH(S) INDICATION: Pain and swelling. Arthroplasty. TECHNIQUE: ??PA weightbearing views of both knees and additional lateral and sunrise views of the right knee.. COMPARISON: Bilateral standing knee and right knee radiographs 10/27/2016 FINDINGS: ?? Redemonstrated bilateral knee arthroplasty hardware, both with stable alignment on submitted images. Neither with any suspicious periprosthetic lucency. Stable associated bony deformity and postsurgical changes. Tiny persistent right suprapatellar bursal effusion. No new superimposed area of cortical disruption to suggest acute fracture or bony destructive lesion. No right knee dislocation. Minimal calcified atherosclerotic plaque suggested. Procedure Note Chari rGewal MD - 04/26/2019 EXAMINATION: BILATERAL STANDING KNEES AND DEDICATED RIGHT KNEE RADIOGRAPH(S) INDICATION: Pain and swelling. Arthroplasty. TECHNIQUE: PA weightbearing views of both knees and additional later[place] sunrise views of the right knee.. COMPARISON: Bilateral standing knee and right knee radiographs 10/27/2016 FINDINGS: Redemonstrated bilateral knee arthroplasty hardware, both with stable alignment on submitted images. Neither with any suspiciousperiprosthetic lucency. Stable associated bony deformity and postsurgical changes. Tiny persistent right suprapatellar bursal effusion. No new superimposed area of cortical disruption to suggest acute fracture or bonydestructive lesion. No right knee dislocation. Minimal calcified atheroscleroticplaque suggested. IMPRESSION: Stable bilateral knee arthroplasty hardware. Additional stable findings. Interpreted By: Chari Grewal MD, 04/26/2019 4:59 PM Danny Blackwell MD GENERAL IMAGING Final Result * XR KNEE RT 2V (04/25/2019 4:24 PM PHILOSOPHY FACULTY MEMBER) Anatomical Region Laterality Modality Knee Radiographic Shannan ging 04/26/2019 4:59 PM PHILOSOPHY FACULTY MEMBER Impressions 04/26/2019 5:04 PM PHILOSOPHY FACULTY MEMBER IMPRESSION: Stable bilateral knee arthroplasty hardware. Additional stable findings. Interpreted By: Chari Grewal MD, 04/26/2019 4:59 PM Narrative 04/26/2019 5:04 PM PHILOSOPHY FACULTY MEMBER EXAMINATION: ??BILATERAL STANDING KNEES AND DEDICATED RIGHT KNEE RADIOGRAPH(S) INDICATION: Pain and swelling. Arthroplasty. TECHNIQUE: ??PA weightbearing views of both knees and additional lateral and sunrise views of the right knee.. COMPARISON: Bilateral standing knee and right knee radiographs 10/27/2016 FINDINGS: ?? Redemonstrated bilateral knee arthroplasty hardware, both with stable alignment on submitted images. Neither with any suspicious periprosthetic lucency. Stable associated bony deformity and postsurgical changes. Tiny persistent right suprapatellar bursal effusion. No new superimposed area of cortical disruption to suggest acute fracture or bony destructive lesion. No right knee dislocation. Minimal calcified atherosclerotic plaque suggested. Procedure Note Chari Grewal MD - 04/26/2019 EXAMINATION: BILATERAL STANDING KNEES AND DEDICATED RIGHT KNEE RADIOGRAPH(S) INDICATION: Pain and swelling. Arthroplasty. TECHNIQUE: PA weightbearing views of both knees and additional later[place] sunrise views of the right knee.. COMPARISON: Bilateral standing knee and right knee radiographs 10/27/2016 FINDINGS: Redemonstrated bilateral knee arthroplasty hardware, both with stable alignment on submitted images. Neither with any suspiciousperiprosthetic lucency. Stable associated bony deformity and postsurgical changes. Tiny persistent right suprapatellar bursal effusion. No new superimposed area of cortical disruption to suggest acute fracture or bonydestructive lesion. No right knee dislocation. Minimal calcified atheroscleroticplaque suggested. IMPRESSION: Stable bilateral knee arthroplasty hardware. Additional stable findings. Interpreted By: Chari Grewal MD, 04/26/2019 4:59 PM Danny Blackwell MD GENERAL IMAGING Final Result documented in this encounter Visit Diagnoses Diagnosis Right knee pain Pain in joint, lower leg documented in this encounter Additional Health Concerns Infection Onset Date Last Indicated Resolved Time MRSA Comment:Negative MRSA 05/201903/11/2017 03/11/2017 10/03/2019 10:08 AM CDT documented as of this encounter Care Teams Precision Agronomist Relationship Specialty Start Date End Date [place] [address] [phone] PCP - General FAMILY PRACTICE 10/27/15 12/02/21 Evaristo [place] [address] [place] [employer] Bow Maker Machine Tender CARDIOVASCULAR DISEASE 08/19/16 Raul [place] [address] [address] CLINICAL CARDIAC ELECTROPHYSIOLOGY 06/16/17 [place] [address] [address] CARDIOVASCULAR DISEASE 06/16/17 07/10/19 documented as of this encounter
--- OUTSIDE RECORDS SUMMARY | 2024-04-23 04:29 | XMS_ITS | Encounter Summary ---
Author Organization [facility] Address [address] [place] [address]. [place], [place] [address] [place] [address] Care Team Providers Care Audio Video Technician Name Role Phone Vernon Mercedes MD Primary Care Provider [phone] Stanislaw Rhodes MD Unavailable Unavailab Evaristo Ying MD Unavailable UnavailRaul Suresh MD Unavailable UnavailMyah Elena NP Unavailable Unavailable Deven Cleary MD Unavailable Unavailable Encounter Details Date Type Department Care Team (Late st Contact Info) Description 09/26/[address] 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 [address] [place] [address] Ti Bonilla MD [address] [place] [phone] 05/23/2024 3:30 PM CARBOY FILLER Office Visit [facility] [place] [address] Jyoti Escobar MD [address] [place] [address] documented as of this encounter Results * (ABNORMAL) HEMOGLOBIN, GLYCOSYLATED (09/26/2018 4:45 PM CDT) HGB A1C 13.3(H) <5.7 % 09/26/2018 5:[address] [facility] Comment: 5.7 TO 6.4% INCREASED RISK OF DIABETES > OR = 6.5% CONSISTENT WITH DIABETES PER ADA GUIDELINES ESTIMATED AVG GLUCOSE 335(H) 70 - 140 MG/DL 09/26/2018 5:[address] [facility] 09/26/2018 4:45 PM CDT Vernon Mercedes MD LABORATORY Final Result Performing Organization Address City/State/[facility] Co de Phone Number [facility] [address] [place] [address] documented in this encounter Visit Diagnoses Diagnosis Type II diabetes mellitus, uncontrolled- Primary Type II or unspecified type diabetes mellitus without mention of complication, uncontrolled documented in this encounter Additional Health Concerns Infection Onset Date Last Indicated Resolved Time MRSA Comment:Negative MRSA 05/201903/11/2017 03/11/2017 10/03/2019 10:08 AM CDT documented as of this encounter Care Teams Audio Video Technician Relationship Specialty Start Date End Date Vernon Mercedes MD [address] [facility] [place] [address] PCP - General FAMILY PRACTICE 10/27/15 12/02/21 Stanislaw Rhodes MD [address] [place] [address] CARDIOVASCULAR DISEASE 10/27/15 10/24/18 Evaristo Allan MD [address] [place] [address] [place] Clerk Telegraph Service CARDIOVASCULAR DISEASE 08/19/16 Raul Santana MD [address] [place] [address] CLINICAL CARDIAC ELECTROPHYSIOLOGY 06/16/17 Myah Handley MONITORING AND EVALUATION [place] [address] [address] CARDIOVASCULAR DISEASE 06/16/17 07/10/19 Deven [place] [address] [address] Hydroelectric Production Manager INTERVENTIONAL CARDIOLOGY 03/21/18 10/24/18 documented as of this encounter
--- OUTSIDE RECORDS SUMMARY | 2024-04-23 04:29 | XMS_ITS | Encounter Summary ---
Author Organization [facility] Address [address] [place] [address]. [place], [place] [address] [place] [address] Care Team Providers Care Gun Numberer Name Role Phone Vernon Mercedes MD Primary Care Provider [phone] Stanislaw Rhodes MD Unavailable Unavailab Evaristo Ying MD Unavailable UnavailRaul Suresh MD Unavailable UnavailMyah Elena NP Unavailable Unavailable Deven Cleary MD Unavailable Unavailable Encounter Details Date Type Department Care Team (Late st Contact Info) Description 09/26/2018 3:56 PM CDT - 09/26/2018 4:47 PM CDT Hospital Encounter [facility] [address] [place] [address] Vernon Mercedes MD [address] [place] [address] Discharge Disposition: Home or Self [...] 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 12/23/2020 aspirin EC (ASPIRIN) 81 MG EC tablet Take 81 mg by mouth daily. 02/01/2019 atorvastatin 40 MG tablet Take 0.5 tablets (20 mg total) by mouth nightly at bedtime. 12/26/2023 dabigatran 150 MG Cap Take 1 capsule (150 mg total) by mouth 2 (two) times daily. 180 capsule 3 05/05/2018 10/17/2018 furosemide 20 MG tablet Take 20 mg by mouth daily. 01/28/2017 08/28/2021 gabapentin 300 MG capsule Take 300 mg by mouth 3 (three) times daily. 02/06/2018 06/30/2023 HUMALOG 100 UNIT/ML injection (VIAL) Inject 32 Units into the skin 3 (three) times daily before meals. 12/29/2017 09/28/2019 ISOSORBIDE MONONITRATE ER 30 MG 24 hr tablet TAKE ONE TABLET BY MOUTH EVERY DAY 90 tablet 3 06/28/2018 11/06/2018 LEVEMIR 100 UNIT/ML injection Inject 44 Units into the skin nightly at bedtime. 12/29/2017 06/30/2023 metFORMIN 850 MG tablet Take 850 mg by mouth 2 (two) times daily with meals. 10/16/2018 METOPROLOL SUCCINATE ER 50 MG 24 hr tablet TAKE ONE TABLET BY MOUTH 2 TIMES A DAY. 180 tablet 3 07/31/2018 09/28/2019 nitroglycerin 0.[address] 1 tablet (0.4 mg total) under the tongue every 5 (five) minutes as needed for Chest Pain. 25 tablet 1 01/04/2018 12/26/2023 ranitidine 150 MG tablet Take 150 mg by mouth 2 (two) times daily. 09/21/2019 spironolactone 25 MG tablet Take 25 mg by mouth daily. 03/31/2020 tamsulosin 0.4 MG Cap Take 1 capsule (0.4 mg total) by mouth daily. 12/26/2023 ticagrelor 90 MG tablet Take 1 tablet (90 mg total) by mouth 2 (two) times daily. 180 tablet 3 03/06/2018 02/23/2019 traMADol 50 MG tablet Take 50 mg by mouth every 6 (six) hours as needed for Pain. 10/18/2019 documented as of this encounter Plan of Treatment Upcoming Encounters Date Type Department Care Team (Late st Contact Info) Description 04/25/2024 11:00 AM BICYCLE MESSENGER Appoint[address] [facility] [address] [place] [address] Ti Bonilla MD [address] [place] [phone] 05/23/2024 3:30 PM BICYCLE MESSENGER Office Visit [facility] [address] [place] [address] Jyoti Escobar MD [address] [place] [address] documented as of this encounter Procedures Procedure Name Priority Date/Time Associated Diagnosis Comments XR FOOT LT 3V Routine 09/26/2018 4:25 PM CDT Left foot pain documented in this encounter Results * XR FOOT LT 3V (09/26/2018 4:25 PM CDT) Anatomical Region Laterality Modality Foot Radiographic Shannan ging 09/27/2018 8:06 AM CDT Impressions 09/27/2018 8:09 AM CDT IMPRESSION: 1. No acute findings. 2. Stable postoperative changes. 3. Stable hallux valgus. 4. Calcaneal spurs. Interpreted By: Matteo Buenrostro, 09/27/2018 8:06 AM Narrative 09/27/2018 8:09 AM CDT Examination: Left foot. Exam time: 1550 hours. Clinical history: Chronic lateral sided pain. Comparison: 03/29/2012. Technique: Three views. Findings: No fracture, dislocation or other acute bony abnormality is identified. ??Calcaneocuboid arthrodesis and anchor in the distal aspect of the cuboid again evident. There is stable mild hallux valgus. Small plantar and moderate-sized Achilles calcaneal spurs are again evident. No other significant bone or joint abnormality is noted. Atherosclerotic calcification is noted. The soft tissues are otherwise unremarkable. Procedure Note Matteo Buenrostro MD - 09/27/2018 Examination: Left foot. Exam time: 1550 hours. Clinical history: Chronic lateral sided pain. Comparison: 03/29/2012. Technique: Three views. Findings: No fracture, dislocation or other acute bony abnormality is identified. Calcaneocuboid arthrodesis and anchor in the distal aspectof the cuboid again evident. There is stable mild hallux valgus. Smallplantar and moderate-sized Achilles calcaneal spurs are again evident. No other significant bone or joint abnormality is noted. Atherosclerotic calcification is noted. The soft tissues are otherwise unremarkable. IMPRESSION: 1. No acute findings. 2. Stable postoperative changes. 3. Stable hallux valgus. 4. Calcaneal spurs. Interpreted By: Matteo Buenrostro, 09/27/2018 8:06 AM Vernon Mercedes MD GENERAL IMAGING Final Result documented in this encounter Visit Diagnoses Diagnosis Left foot pain Pain in limb Type II diabetes mellitus, uncontrolled Type II or unspecified type diabetes mellitus without mention of complication, uncontrolled documented in this encounter Additional Health Concerns Infection Onset Date Last Indicated Resolved Time MRSA Comment:Negative MRSA 05/201903/11/2017 03/11/2017 10/03/2019 10:08 AM CDT documented as of this encounter Care Teams Gun Numberer Relationship Specialty Start Date End Date [place] [place] [phone] PCP - General FAMILY PRACTICE 10/27/15 12/02/21 Stanislaw [place] [phone] CARDIOVASCULAR DISEASE 10/27/15 10/24/18 Evaristo [place] [phone] [place] [employer] CARDIOVASCULAR DISEASE 08/19/16 Raul [place] [address] [phone] CLINICAL CARDIAC ELECTROPHYSIOLOGY 06/16/17 Myah Handley NP [address] [place] [phone] CARDIOVASCULAR DISEASE 06/16/17 07/10/19 Deven Cleary MD [address] [place] [phone] Assembler Brazer INTERVENTIONAL CARDIOLOGY 03/21/18 10/24/18 documented as of this encounter
--- OUTSIDE RECORDS SUMMARY | 2024-04-23 04:29 | XMS_ITS | Encounter Summary ---
Author Organization [facility] Address [address] [place] [address]. [place], [place] [address] [place] [address] Care Team Providers Care Accounts Receivable Clerk Name Role Phone Vernon Mercedes MD Primary Care Provider [phone] Evaristo Allan MD Unavailable UnavailRaul Suresh MD Unavailable Unavailabl Myah Gee NP Unavailable Unavailable Reason for Visit * Reason Onset Date Comments Medication Request 01/29/2019 Appointment Request 01/29/2019 Encounter Details Date Type Department Care Team (Late st Contact Info) Description 01/29/2019 [facility] [address] [place] [address] Evaristo Allan MD Medication Request; Appointment Request Social History Tobacco Use Types [...] 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 Patient phoned and informed him of this. Patient verbalized understanding and denies any questions at this time. He states he will stop taking his ASA. Patient does state that he was informed by his pharmacy that they would not refill his Pradaxa due to his insurance not willing to cover it. He states he has not had his Pradaxa in over a week. Informed him that Myah Handley with 's office is the one that prescribed that medication to him and that I would transfer his call their office to sort out. Patient voiced understanding and agreed with plan. Call transferred to 's nurse. * Shannan Lay RN - 01/29/2019 11:09 AM CDT Spoke with pharmacy. Pt taking ASA, Brilinta, and Pradaxa. Will review with Dr. Allan tomorrow which meds he should be taking and will let them know. Verbalizes understanding and has no further questions. * Mavis Mccullough - 01/29/2019 8:43 AM CDT Pt called stating he needs his Pradaxa refilled and pharmacy wants a call due to possible drug interaction before they will fill it. Pt now uses [facility] in [place]. Their number is [phone]. Pt also scheduled his f/u appt. Letter mailed. documented in this encounter Plan of Treatment Upcoming Encounters Date Type Department Care Team (Late st Contact Info) Description 04/25/2024 11:00 AM CUSTOMS EXAMINER Appointment [facility] [address] [place] [address] Ti Bonilla MD [address] [place] [phone] 05/23/2024 3:30 PM CUSTOMS EXAMINER Office Visit [facility] [address] [place] [phone] Jyoti Escobar MD [address] [place] [address] documented as of this encounter Visit Diagnoses Not on filedocumented in this encounter Additional Health Concerns Infection Onset Date Last Indicated Resolved Time MRSA Comment:Negative MRSA 05/201903/11/2017 03/11/2017 10/03/2019 10:08 AM CDT documented as of this encounter Care Teams Accounts Receivable Clerk Relationship Specialty Start Date End Date Vernon Mercedes MD [address] [place] [address] PCP - General FAMILY PRACTICE 10/27/15 12/02/21 [place] [phone] [place] [employer]ical Engineering Aide CARDIOVASCULAR DISEASE 08/19/16 [place] [phone] CLINICAL CARDIAC ELECTROPHYSIOLOGY 06/16/17 [place] [address] CARDIOVASCULAR DISEASE 06/16/17 07/10/19 documented as of this encounter
--- OUTSIDE RECORDS SUMMARY | 2024-04-23 04:29 | XMS_ITS | Encounter Summary ---
Author Organization [facility] Address [address] [place] [address]. [place], [place] [address] [place] [address] Care Team Providers Care Laboratory Administrative Director Name Role Phone Vernon Mercedes MD Primary Care Provider [phone] Stanislaw Rhodes MD Unavailable Unavailab Evaristo Ying MD Unavailable UnavailRaul Suresh MD Unavailable UnavailMyah Elena NP Unavailable Unavailable Deven Cleary MD Unavailable Unavailable Reason for Visit * Reason Onset Date Comments Reschedule 10/10/2018 N/S appt w/TRAINING INSTRUCTOR Encounter Details Date Type Department Care Team (Late st Contact Info) Description 10/10/2018 Telephone [employer] [facility] [address] [place] [address] Raul Santana MD Reschedule (N/S appt w/TRAINING INSTRUCTOR) Social History Tobacco Use Types Packs/Day Years [...] 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 R/S for 10/17/18 @ 9:30am. Pt is [facility] Alert; however, could not coordinate a time at end of day. Letter mailed. documented in this encounter Plan of Treatment Upcoming Encounters Date Type Department Care Team (Late st Contact Info) Description 04/25/2024 11:00 AM SPORTS MEDICINE MASSEUR Appointment [facility] [address] [place] [address] Ti Bonilla MD [address] [place] [phone] 05/23/2024 3:30 PM SPORTS MEDICINE MASSEUR Office Visit [facility] [address] [place] [phone] Jyoti Escobar MD [address] [place] [phone] documented as of this encounter Visit Diagnoses Not on filedocumented in this encounter Additional Health Concerns Infection Onset Date Last Indicated Resolved Time MRSA Comment:Negative MRSA 05/201903/11/2017 03/11/2017 10/03/2019 10:08 AM CDT documented as of this encounter Care Teams Laboratory Administrative Director Relationship Specialty Start Date End Date Vernon Mercedes MD [address] [place] [address] PCP - General FAMILY PRACTICE 10/27/15 12/02/21 [place] [address] CARDIOVASCULAR DISEASE 10/27/15 10/24/18 [place] [address] [place] Kit Assembler CARDIOVASCULAR DISEASE 08/19/16 Raul Santana MD [address] [place] [phone] CLINICAL CARDIAC ELECTROPHYSIOLOGY 06/16/17 Myah Handley NP [address] [place] [phone] CARDIOVASCULAR DISEASE 06/16/17 07/10/19 Deven Cleary MD [address] [place] [phone] Multilith Operator INTERVENTIONAL CARDIOLOGY 03/21/18 10/24/18 documented as of this encounter
--- OUTSIDE RECORDS SUMMARY | 2024-04-23 04:29 | XMS_ITS | Encounter Summary ---
Author Organization [facility] Address [address] [place] [address]. 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 [address] [place] [address] Ti Bonilla MD [address] [place] [phone] 05/23/2024 3:30 PM BENCH PRESS OPERATOR [facility] [address] [place] [address] Jyoti Escobar MD [address] [place] [address] documented as of this encounter Visit Diagnoses Not on filedocumented in this encounter Additional Health Concerns Infection Onset Date Last Indicated Resolved Time MRSA Comment:Negative MRSA 05/201903/11/2017 03/11/2017 10/03/2019 10:08 AM CDT documented as of this encounter Care Teams Buttermaker Helper Relationship Specialty Start Date End Date Vernon Mercedes MD [address] [place] [address] PCP - General FAMILY PRACTICE 10/27/15 12/02/21 Evaristo Allan MD [address] [place] [address] [place] Electronic Security Specialist CARDIOVASCULAR DISEASE 08/19/16 Raul Santana MD [address] [place] [address] CLINICAL CARDIAC ELECTROPHYSIOLOGY 06/16/17 Danny Blackwell MD [address] [place] [address] ORTHOPAEDIC SURGERY 05/01/19 documented as of this encounter
--- OUTSIDE RECORDS SUMMARY | 2024-04-23 04:29 | XMS_ITS | Encounter Summary ---
Author Organization [facility] Address [address] [place] [address]. [place], [place] [address] [place] [address] Care Team Providers Care Ore Crushing Dust Collector Name Role Phone Vernon Mercedes MD Primary Care Provider [phone] Stanislaw Rhodes MD Unavailable Unavailab Evaristo Ying MD Unavailable UnavailRaul Suresh MD Unavailable Unavailabl Myah Gee NP Unavailable Unavailable Deven Cleary MD Unavailable Unavailable Reason for Visit * Reason Onset Date Comments Medication 05/02/2018 Encounter Details Date Type Department Care Team (Late st Contact Info) Description 05/02/2018 Telephone [employer] [facility] [address] [address] Deven Cleary MD Medication Social History Tobacco Use Types Packs/Day [...] Progress Notes * Marcelle Madden RN - 05/02/2018 1:[address] Cleary's office, he did AEROSPACE MANAGER in March and sent pt home on both drugs. Will ask them to look into this until [facility] has f/u in [place] appt ATCH OFFICER * Nancy Alvaradofantasmapeterson - 05/02/2018 9:26 AM CST CHECKING TO SEE WHICH MEDS HE IS TO BE ON...BIRLINTA OR PRADEXA ATCH OFFICER documented in this encounter Plan of Treatment Upcoming Encounters Date Type Department Care Team (Late st Contact Info) Description 04/25/2024 11:00 AM DISPATCH OFFICER Appointment [facility] [address] [place], [place] [phone] Ti Bonilla MD [address] [place] [phone] 05/23/2024 3:30 PM DISPATCH OFFICER Office Visit [facility] [address] [place] [phone] Jyoti Escobar MD [address] [place] [address] documented as of this encounter Visit Diagnoses Not on filedocumented in this encounter Additional Health Concerns Infection Onset Date Last Indicated Resolved Time MRSA Comment:Negative MRSA 05/201903/11/2017 03/11/2017 10/03/2019 10:08 AM CDT documented as of this encounter Care Teams Ore Crushing Dust Collector Relationship Specialty Start Date End Date Vernon [place] [phone] PCP - General FAMILY PRACTICE 10/27/15 12/02/21 [place] [address] CARDIOVASCULAR DISEASE 10/27/15 10/24/18 [place] [address] [employer] Pulverizer CARDIOVASCULAR DISEASE 08/19/16 Raul Santana MD [address] [place] [address] CLINICAL CARDIAC ELECTROPHYSIOLOGY 06/16/17 Myah Handley NP [address] [address] [phone] CARDIOVASCULAR DISEASE 06/16/17 07/10/19 [place] [address] Magazine Worker INTERVENTIONAL CARDIOLOGY 03/21/18 10/24/18 documented as of this encounter
--- OUTSIDE RECORDS SUMMARY | 2024-04-23 04:29 | XMS_ITS | Encounter Summary ---
Author Organization [facility] Address [address] [place] [address]. [place], [place] [address] [place] [address] Care Team Providers Care Hydrologic Engineer Name Role Phone Vernon Delgado MD Primary Care Provider [phone] Evaristo Allan MD Unavailable UnavailRaul Suresh MD Unavailable Unavailabl Myah Gee NP Unavailable Unavailable Reason for Visit * Reason Comments Chest Pain sharp pain Encounter Details Date Type Department Care Team (Latest Contact Info) Description 10/26/2018 3:00 PM CDT Office Visit [facility] 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 Not on file Not on file documented as of this encounter Last Filed Vital Signs Vital Sign Reading Time Taken Comments Blood Pressure 118/68 10/26/2018 9:22 AM CDT Pulse 75 10/26/2018 9:22 AM CDT Temperature - - Respiratory Rate 16 10/26/2018 9:22 AM CDT Oxygen Saturation 99% 10/26/2018 9:22 AM CDT Inhaled Oxygen Concentration - - Weight 119.3 kg (263 lb) 10/26/2018 9:22 AM CDT Height 180.3 cm (5' 11 ) 10/26/2018 9:22 AM CDT Body Mass Index 36.68 10/26/2018 9:22 AM CDT documented in this encounter Patient Instructions * Patient Instructions* Mery Davis LPN - 10/26/2018 3:00 PM CDT Call with results if still symptomatic. documented in this encounter Progress Notes * Evaristo Allan MD - 10/26/2018 3:00 PM CDT Reason for Visit: Chest Pain (sharp pain) History of Present Illness: Recommendations and Plan: Medications: Current Outpatient Medications: ??? amitriptyline 50 MG tablet, Take 50 mg by mouth nightly at bedtime., Disp: , Rfl: ??? aspirin EC (ASPIRIN) 81 MG EC tablet, Take 81 mg by mouth daily., Disp: , Rfl: ??? atorvastatin 40 MG tablet, Take 40 mg by mouth daily., Disp: , Rfl: ??? dabigatran 150 MG Cap, Take 1 capsule (150 mg total) by mouth 2 (two) times daily., Disp: 180 capsule, Rfl: 3 ??? furosemide 20 MG tablet, Take 20 mg by mouth daily. , Disp: , Rfl: ??? gabapentin 300 MG capsule, Take 300 mg by mouth 3 (three) times daily. , Disp: , Rfl: ??? HUMALOG 100 UNIT/ML injection (VIAL), Inject 20 Units into the skin nightly at bedtime. , Disp:, Rfl: ??? ISOSORBIDE MONONITRATE ER 30 MG 24 hr tablet, TAKE ONE TABLET BY MOUTH EVERY DAY, Disp: 90 tablet, Rfl: 3 ??? LEVEMIR 100 UNIT/ML injection, Inject 20 [...] CATHETERIZATION 01/04/2018 occluded prox RCA w/well developed [id number] collaterals lvef 55-60% ??? FRACTURE SURGERY ??? HERNIA REPAIR ??? KNEE ARTHROPLASTY ??? XA ABLATION 05/19/2016 ??? XA CORONARY INTERVENTION 03/24/[address] Cleary Social History Tobacco Use ??? Smoking status: [...] or significant shortness of breath and snoring. Sleep apnea Cardiovascular: See HPI Gastrointestinal: Negative for blood in stool and melena. Genitourinary: Negative for dysuria. Musculoskeletal: Negative for myalgias and new or worsening joint stiffness/pain. Skin: Negative for rash. Neurological: Negative for tingling/numbness and focal weakness. Endo/Heme/Allergies: Positive for easy bruising/bleeding. Negative for polydipsia. Psychiatric/Behavioral: Negative for depression and new or significant memory loss. Filed Vitals: 10/26/18921 BP: 118/68 Pulse: 75 Resp: 16 SpO2: 99% Weight: 119.3 kg (263 lb) Height: 5' 11 (1.803 m) Vitals: 10/26/18921 BP Location: Left arm BP: 118/68 Pulse: 75 Body mass index is 36.68 kg/m??. Physical Exam Rate/Rhythm: regular rhythm and normal rate . Heart Sounds: normal heart sounds, normal S1 and normal S2 no gallop, no S3 sound, no S4 sound and no murmur. . PMI: PMI not displaced. Pulses: normal pulses Right Carotid pulses 2+, Left Carotid pulses 2+, Right Radial pulses 2+, LeftRadial pulses 2+, Right Femoral pulses 2+, Left Femoral pulses 2+, Right Popliteal pulses 2+, Left Popliteal pulses 2+, Right DP pulses 2+, Left DP pulses 2+, Right PT pulses 2+Left PT Pulses 2+, negative for edema Constitutional: healthy appearance not distressed. . Neck: normal range of motion, neck supple and thyroid normal no JVD. . Pulmonary/Chest Wall: effort normal and breath sounds normal tenderness. HEENT: teeth/gums normal and oropharynx clear and moist. . Abdomen: abdomen soft and bowel sounds normal no tenderness, no mass, no hepatomegaly, no splenomegaly, abdominal aorta not palpably enlarged and no abdominal aortic bruit. . Eyes: pupils equal, round, and reactive to light and conjunctivae normal. Neurological: alert, oriented x 3, appropriate for situation, intact cranial nerves and normal motor skillsnormal gait, . Skin: dry and warm no cyanosis and no clubbing. Musculoskeletal: no kyphosis normal ROM Cardiovascular Comments: Diagnoses/Impression: No diagnosis found. Referring Provider: No ref. provider found PCP: VERNON DELGADO MD * Evaristo Allan MD - 10/26/2018 12:00 AM CDT HISTORY OF PRESENT ILLNESS: Mr. Zelaya is seen in the [facility] today for a scheduled followup visit. He reports that he is doing well from a cardiac standpoint. Mr. Zelaya does complain of some ongoing chest pain, however. He describes this as sharp and without radiation. It usually lasts from 1-3 minutes. It is unassociated with meals or other factors withthe exception of being under stress. He denies any associated shortness of breath, nausea or diaphoresis. Exertion does not seem to reproduce the chest discomfort. It can happen when he is sleepingat night. A review of the available records show that a cardiac catheterization in March of 2018 showed a total occlusion in the mid portion of the right coronary artery, which was stented. This was identified after a previous Regadenoson nuclear stress test had identified ischemia in the inferior wall and subsequent cardiac catheterization had documented the right coronary artery stenosis. Other recentevaluation included an event monitor from April of this year. It was interpreted by Dr. Murillo as showing sinus rhythm with rare premature atrial contractions and no complex supraventricular arrhythmias. RECOMMENDATIONS AND PLAN: Mr. Durand chest pain syndrome is certainly atypical in nature and associated with tenderness to palpation over his costochondral joints. I suspect that the chest pain is musculoskeletal in etiology given its character and Mr. Zelaya' overall clinical situation. Cardiac risk factor modification will be important in his long-term care. After a long discussion in the clinic, I have recommended the following to Mr. Zelaya: 1. Initiate anti-inflammatory therapy using Ibuprofen 600 mg p.o. t.i.d. with meals for 1 week. 2. I have asked Mr. Zelaya to contact my office with a progress report in 1 week. Should the atypical chest pain syndrome persist, further evaluation will be pursued to rule out a cardiac etiology to his ongoing complaints. 3. Annual followup in the cardiology clinic. I have encouraged Mr. Durand to contact me in the meantime should he have any questions or problems. documented in this encounter Plan of Treatment Upcoming Encounters Date Type Department Care Team (Late st Contact Info) Description 04/25/2024 11:00 AM CROSS COUNTRY COACH Appointment 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 [facility] Primary S/P coronary artery stent placement Postsurgical percutaneous transluminal coronary angioplasty status Paroxysmal atrial fibrillation ([facility]) Atrial fibrillation Essential hypertension Unspecified essential hypertension Mixed hyperlipidemia Obstructive sleep apnea Obstructive sleep apnea (adult) (pediatric) documented in this encounter Additional Health Concerns Infection Onset Date Last Indicated Resolved Time MRSA Comment:Negative MRSA 05/201903/11/2017 03/11/2017 10/03/2019 10:08 AM CDT documented as of this encounter Care Teams Hydrologic Engineer Relationship Specialty Start Date End Date Vernon Delgado [place] [address] PCP - General FAMILY PRACTICE 10/27/15 12/02/21 [place] [address] [employer] Photographic Artist CARDIOVASCULAR DISEASE 08/19/16 [place] [address] CLINICAL CARDIAC ELECTROPHYSIOLOGY 06/16/17 Myah Handley, F[place]IGHT [place] [address] CARDIOVASCULAR DISEASE 06/16/17 07/10/19 documented as of this encounter
--- OUTSIDE RECORDS SUMMARY | 2024-04-23 04:29 | XMS_ITS | Encounter Summary ---
Author Organization [facility] Address [address] [place] [address]. [place], [place] [address] [address] Care Team Providers Care Director Of Product Marketing Name Role Phone Vernon Mercedes MD Primary Care Provider [phone] Evaristo Allan MD Unavailable UnavailRaul Suresh MD Unavailable Unavailabl Myah Gee NP Unavailable Unavailable Danny Blackwell MD Unavailable Reason for Visit * Reason Onset Date Comments Refill Request 07/10/2019 Encounter Details Date Type Department Care Team (Late st Contact Info) Description 07/10/2019 Telephone [employer] [facility] [address] [place] [address] Evaristo Allan MD Refill Request Social History Tobacco Use Types Packs/Day [...] 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 Pt last seen 02/2019 and to f/u 02/2020. Refill given. documented in this encounter Plan of Treatment Upcoming Encounters Date Type Department Care Team (Late st Contact Info) Description 04/25/2024 11:00 AM UTILITY WORKER FILM PROCESSING Appointment [facility] [address] [place] [address] Ti Bonilla MD [address] [place] [phone] 05/23/2024 3:30 PM UTILITY WORKER FILM PROCESSING Office Visit [facility] [address] [place] [phone] Jyoti Escobar MD [address] [place] [address] [phone] documented as of this encounter Visit Diagnoses Not on filedocumented in this encounter Additional Health Concerns Infection Onset Date Last Indicated Resolved Time MRSA Comment:Negative MRSA 05/201903/11/2017 03/11/2017 10/03/2019 10:08 AM CDT documented as of this encounter Care Teams Director Of Product Marketing Relationship Specialty Start Date End Date Vernon Mercedes MD [address] [place] [address] PCP - General FAMILY PRACTICE 10/27/15 12/02/21 Evaristo Allan MD [facility] [place] [address] Felda Pourer CARDIOVASCULAR DISEASE 08/19/16 Raul Santana MD [facility] [place] [address] CLINICAL CARDIAC ELECTROPHYSIOLOGY 06/16/17 Myah Handley NP [address] [place] [address] CARDIOVASCULAR DISEASE 06/16/17 07/10/19 Danny Blackwell MD [address] [place] [address] ORTHOPAEDIC SURGERY 05/01/19 documented as of this encounter
--- OUTSIDE RECORDS SUMMARY | 2024-04-23 04:29 | XMS_ITS | Encounter Summary ---
Author Organization [facility] Address [address] [place] [address]. [place], [place] [address] [place] [address] Care Team Providers Care Superintendent [employer] Name Role Phone Vernon Mercedes MD Primary Care Provider [phone] Evaristo Allan MD Unavailable UnavailRual Suresh MD Unavailable Unavailabl Myah Gee NP Unavailable Unavailable Danny Blackwell MD Unavailable [phone] Reason for Visit * Reason Comments Pre-Op Exam RIGHT Total Knee Art hroplasty Encounter Details Date Type Department Care Team (Latest Contact Info) Description 05/04/2019 8:30 AM ROVING INSPECTOR Office Visit [facility] [address] [address] Danny Blackwell MD [address] [place] [address] Pre-Op Exam (RIGHT Total Knee Arthroplasty) Social History Tobacco Use Types Packs/Day Years [...] - - Weight 113.4 kg (250 lb) 05/04/2019 8:22 AM ROVING INSPECTOR Height 177.8 cm (5' 10 ) 05/04/2019 8:22 AM ROVING INSPECTOR Body Mass Index 35.87 05/04/2019 8:22 AM ROVING INSPECTOR documented in this encounter Progress Notes * Danny Blackwell MD - 05/04/2019 8:30 AM CST Chief Complaint: Pre-Op Exam (RIGHT Total Knee Arthroplasty) History of Present Illness: Evaristo Zelaya is a 59-year-old male who presents to the office for Pre-Op Exam (RIGHT Total Knee Arthroplasty) Patient arrives to clinic to discuss scheduling a RIGHT Total Knee Arthroplasty. After reviewing his history, patient states that his last A1C was 14 within the last few months. On 09/26/2018 his A1Cwas 13.3. He reports pain to the entire RIGHT knee. Patient has a history of RIGHT TKA. Denies any recent injury, physical therapy or injections. On his last visit, our office aspirated his RIGHT knee. Patient continued to describe start up pain and mainly pain with activity. He does get some aching at rest but that is more after he has been active. ROS: See HPI for pertinent positives Problem List: Patient Active Problem List Diagnosis ??? Essential hypertension ??? Paroxysmal atrial fibrillation ([facility]) ??? FDC current use of anticoagulant therapy ??? Obstructive sleep apnea ??? Hyperlipidemia ??? Diabetes ([facility]) ??? Coronary artery disease of cheesh-na artery of cheesh-na heart with stable angina pectoris ([facility]) ??? 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 Cardiovascular stress test abnormal ??? Arthritis of knee ??? Derangement of medial meniscus, left ??? Encounter for follow-up examination after completed treatment for conditions other than malignant neoplasm ??? Heartburn ??? Knee pain ??? Mechanical complication of internal orthopedic device, implant or graft, initial encounter ([facility]) ??? Patella-femoral syndrome ??? Pes anserine bursitis ??? Recurrent ventral incisional hernia ??? Abdominal pain ??? Failure of total knee replacement, initial encounter ([facility]) ??? S/P coronary artery stent placement History: [...] CATHETERIZATION 01/04/2018 occluded prox RCA w/well developed ricz-tp-rfkes collaterals lvef 55-60% ??? FRACTURE SURGERY ??? HERNIA REPAIR ??? KNEE ARTHROPLASTY ??? LITHOTRIPSY ??? XA ABLATION 05/19/2016 ??? XA CORONARY INTERVENTION 03/24/[address] Cleary Family History Family history unknown: Yes Social History Tobacco Use ??? Smoking status: Never Smoker ??? Smokeless tobacco: Never Used Substance Use Topics ??? Alcohol use: Yes ??? Drug use: No Medications: Current Outpatient [...] Blisters in the mouth Objective: Filed Vitals: 05/04/19 0822 Weight: 113.4 kg (250 lb) Height: 5' 10 (1.778 m) Body mass index is 35.87 kg/m??. Physical Exam: Constitutional: Alert and in no acute distress. Neurological: The patient was oriented to person, place, and time. Eyes: The sclera and conjunctiva were normal ENT: Hearing was normal. Neck: The appearance of the neck was normal. Cardiovascular: Normal pulses. Pulmonary: No respiratory distress. Skin: No injuries or skin lesions. Musculoskeletal: Small effusion is present but no erythema. Patient exam is unchanged with some evidence of mild neuropathy in both feet but distal pulses are palpable. Range of motion is good. Patient is ligamentously stable and no localized tenderness appreciated Results: Review of x-rays suggests a signs of loosening of his components. His right total knee arthroplastyremains well aligned Assessment: Encounter Diagnose(s) ICD-10-CM ICD-9-CM SNOMED CT(R) 1. Failure of total knee replacement, initial encounter ([facility]) T84.018A 996.47 PROSTHETIC JOINT MECHANICAL FAILURE Z96.659 V43.65 Plan: Patient indicates his symptoms are bad enough he wants to proceed with revision surgery of his right knee. His previous aspiration demonstrated no signs of infection. His most recent hemoglobin A1c was in the 14 range and he will need to get his A1c down prior to his going to surgery. He is going to discuss with methods of reducing his A1c. I have scheduled his surgery for June 17 and he will return in a month and we will see how his A1c is doing Follow up: Return in about 4 weeks (around 06/01/2019). DANNY BLACKWELL MD NG INSPECTOR documented in this encounter Plan of Treatment Upcoming Encounters Date Type Department Care Team (Late st Contact Info) Description 04/25/2024 11:00 AM ROVING INSPECTOR Appointment [facility] [address] [place] [address] Ti Bonilla MD [address] [place] [phone] 05/23/2024 3:30 PM ROVING INSPECTOR Office Visit [facility] [address] [place] [address] Jyoti Escobar MD [address] [place] [address] [phone] documented as of this encounter Visit Diagnoses Diagnosis Failure of total knee replacement, initial encounter ([facility])- Primary documented in this encounter Additional Health Concerns Infection Onset Date Last Indicated Resolved Time MRSA Comment:Negative MRSA 05/201903/11/2017 03/11/2017 10/03/2019 10:08 AM CDT documented as of this encounter Care Teams Superintendent [employer] Relationship Specialty Start Date End Date Vernon Mercedes MD [address] [place] [address] PCP - General FAMILY PRACTICE 10/27/15 12/02/21 Evaristo Allan MD [address] [place] [address] [facility] Specialist CARDIOVASCULAR DISEASE 08/19/16 Raul Santana MD [address] [place] [address] CLINICAL CARDIAC ELECTROPHYSIOLOGY 06/16/17 Myah Handley NP [address] [place] [address] CARDIOVASCULAR DISEASE 06/16/17 07/10/19 Dnany Blackwell MD [address] [place] [address] ORTHOPAEDIC SURGERY 05/01/19 documented as of this encounter
--- OUTSIDE RECORDS SUMMARY | 2024-04-23 04:29 | XMS_ITS | Encounter Summary ---
Author Organization [facility] Address [address] [place] [address]. [place], [place] [address] [place] [address] Care Team Providers Care Lehr Loader Name Role Phone Vernon Mercedes MD Primary Care Provider [phone] Stanislaw Rhodes MD Unavailable Unavailab Evaristo Ying MD Unavailable UnavailRaul Suresh MD Unavailable UnavailMyah Elena NP Unavailable Unavailable Deven Cleary MD Unavailable Unavailable Reason for Visit * Reason Onset Date Comments Results 06/07/2018 Encounter Details Date Type Department Care Team (Late st Contact Info) Description 06/07/2018 Telephone [employer] [facility] [address] [place] [address] Evaristo Allan MD Results Social History Tobacco Use Types Packs/Day [...] 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 He is currently feeling well. Will observe and call for problems or concerns N SOURER * Marcelle Madden RN - 06/07/2018 8:23 AM CST ----- Message from Evaristo Allan MD sent at 06/06/2018 3:04 PM BROWN SOURER ----- Event monitor: No Afib. Palpitations reported to occur during HR of 90 bpm, not during sinus tachycardia. Let's continue present meds & observe for now. N SOURER documented in this encounter Plan of Treatment Upcoming Encounters Date Type Department Care Team (Late st Contact Info) Description 04/25/2024 11:00 AM BROWN SOURER Appointment [facility] [address] [place], [place] [phone] Ti Bonilla MD [address] [place] [phone] 05/23/2024 3:30 PM BROWN SOURER Office Visit [facility] [address] [place] [address] Jyoti Escobar MD [address] [place] [address] documented as of this encounter Visit Diagnoses Not on filedocumented in this encounter Additional Health Concerns Infection Onset Date Last Indicated Resolved Time MRSA Comment:Negative MRSA 05/201903/11/2017 03/11/2017 10/03/2019 10:08 AM CDT documented as of this encounter Care Teams Lehr Loader Relationship Specialty Start Date End Date Vernon Mercedes MD [address] [place] [phone] PCP - General FAMILY PRACTICE 10/27/15 12/02/21 Stanislaw Rhodes MD [address] [place] [address] CARDIOVASCULAR DISEASE 10/27/15 10/24/18 Evaristo Allan MD [address] [place] [address] [employer] Officer CARDIOVASCULAR DISEASE 08/19/16 Raul Santana MD [address] [place] [address] CLINICAL CARDIAC ELECTROPHYSIOLOGY 06/16/17 Myah Handley NP [address] [place] [address] CARDIOVASCULAR DISEASE 06/16/17 07/10/19 Deven Cleary MD [address] [place] [address] [employer] Reporter INTERVENTIONAL CARDIOLOGY 03/21/18 10/24/18 documented as of this encounter
--- OUTSIDE RECORDS SUMMARY | 2024-04-23 04:29 | XMS_ITS | Encounter Summary ---
Author Organization [facility] Address [address] [place] [address]. [place], [place] [address] [place] [address] Care Team Providers Care Laboratory Director Name Role Phone Vernon Mercedes MD Primary Care Provider [phone] Stanislaw Rhodes MD Unavailable Unavailab Evaristo Ying MD Unavailable UnavailRaul Suresh MD Unavailable UnavailMyah Elena NP Unavailable Unavailable Deven Cleary MD Unavailable Unavailable Reason for Visit * Reason Onset Date Comments Results 06/06/2018 Encounter Details Date Type Department Care Team (Late st Contact Info) Description 06/06/2018 Telephone [facility] [address] [place] [address] Evaristo Allan MD Results Social [...] 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 Palpitations reported to occur during HR of 90 bpm, not during sinus tachycardia. Let's continue present meds & observe for now. TS TEAM MARKETING INTERN documented in this encounter Plan of Treatment Upcoming Encounters Date Type Department Care Team (Late st Contact Info) Description 04/25/2024 11:00 AM SPORTS TEAM MARKETING INTERN Appointment [facility] [address] [place], [place] [phone] Ti Bonilla MD [address] [place] [phone] 05/23/2024 3:30 PM SPORTS TEAM MARKETING INTERN Office Visit [facility] [address] [place] [phone] Jyoti Escobar MD [address] [place] [address] documented as of this encounter Visit Diagnoses Not on filedocumented in this encounter Additional Health Concerns Infection Onset Date Last Indicated Resolved Time MRSA Comment:Negative MRSA 05/201903/11/2017 03/11/2017 10/03/2019 10:08 AM CDT documented as of this encounter Care Teams Laboratory Director Relationship Specialty Start Date End Date Vernon Mercedes MD [address] [place] [phone] PCP - General FAMILY PRACTICE 10/27/15 12/02/21 Stanislaw Rhodse MD [address] [place] [address] CARDIOVASCULAR DISEASE 10/27/15 10/24/18 Evaristo Allan MD [address] [place] [address] [place] Residential Supervisor CARDIOVASCULAR DISEASE 08/19/16 Raul Santana MD [address] [place] [phone] CLINICAL CARDIAC ELECTROPHYSIOLOGY 06/16/17 Myah Handley NP [address] [place] [address] CARDIOVASCULAR DISEASE 06/16/17 07/10/19 Deven Cleary MD [address] [place] [address] Political Science Chair INTERVENTIONAL CARDIOLOGY 03/21/18 10/24/18 documented as of this encounter
--- OUTSIDE RECORDS SUMMARY | 2024-04-23 04:29 | XMS_ITS | Encounter Summary ---
Author Organization [facility] Address [address] [place] [address]. [place] [address] [place] [address] Care Team Providers Care Leather Cutter Name Role Phone Vernon Mercedes MD Primary Care Provider [phone] Stanislaw Rhodes MD Unavailable Unavailab Evaristo Ying MD Unavailable UnavailRaul Suresh MD Unavailable UnavailMyah Elena NP Unavailable Unavailable Deven Cleary MD Unavailable Unavailable Encounter Details Date Type Department Care Team (Late st Contact Info) Description 05/04/2018 Scan [facility] [address] [place] [address] Scanned, Documents Social History Tobacco Use Types Packs/Day Years [...] 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 [address] [address] [place] [address] Ti Bonilla MD [address] [place] [phone] 05/23/2024 3:30 PM MOTOR CHECKER Office Visit [facility] [address] [place] [phone] Jyoti Escobar MD [address] [place] [address] documented as of this encounter Procedures Procedure Name Priority Date/Time Associated Diagnosis Comments EVENT MONITOR 30 DAYS Routine 05/04/2018 Paroxysmal atrial fibrillation ([facility]) Obstructive sleep apnea 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 Essential hypertension Mixed hyperlipidemia Diabetes ([facility]) Coronary artery disease of [place] artery of [place] heart with stable angina pectoris Cardiovascular stress test abnormal Atrial fibrillation ([facility]) documented in this encounter Results * EVENT MONITOR 30 DAYS (05/04/2018) Evaristo Allan MD HOLTER Final Resul t documented in this encounter Visit Diagnoses Diagnosis Paroxysmal atrial fibrillation ([facility] HHS/HCC) Atrial fibrillation Obstructive sleep apnea Obstructive sleep apnea (adult) (pediatric) [facility] current use of anticoagulant therapy Essential hypertension Unspecified essential hypertension Mixed hyperlipidemia Diabetes ([facility]) Coronary artery disease of [place] artery of [place] heart with stable angina pectoris ([facility]) Cardiovascular stress test abnormal Other nonspecific abnormal cardiovascular system function study Atrial fibrillation ([facility]) Atrial fibrillation documented in this encounter Additional Health Concerns Infection Onset Date Last Indicated Resolved Time MRSA Comment:Negative MRSA 05/201903/11/2017 03/11/2017 10/03/2019 10:08 AM CDT documented as of this encounter Care Teams Leather Cutter Relationship Specialty Start Date End Date Vernon Mercedes MD [address] [place] [phone] PCP - General FAMILY PRACTICE 10/27/15 12/02/21 Stanislaw Rhodes MD [address] [place] [address] CARDIOVASCULAR DISEASE 10/27/15 10/24/18 Evaristo Allan MD [address] [place] [address] [place] Topstitcher Lockstitch CARDIOVASCULAR DISEASE 08/19/16 Raul Santana MD [address] [place] [address] CLINICAL CARDIAC ELECTROPHYSIOLOGY 06/16/17 Myah Handley NP [address] [place] [address] CARDIOVASCULAR DISEASE 06/16/17 07/10/19 Deven Cleary MD [address] [place] [address] Residency Coordinator INTERVENTIONAL CARDIOLOGY 03/21/18 10/24/18 documented as of this encounter
--- OUTSIDE RECORDS SUMMARY | 2024-04-23 04:29 | XMS_ITS | Encounter Summary ---
Author Organization [facility] Address [address] [place] [address]. [place], [place] [address] [place] [address] Care Team Providers Care Fertilizer Processing Supervisor Name Role Phone Vernon Mercedes MD Primary Care Provider Stanislaw Rhodes MD Unavailable Unavailab Evaristo Ying MD Unavailable UnavailRaul Suresh MD Unavailable UnavailMyah Elena NP Unavailable Unavailable Deven Cleary MD Unavailable Unavailable Encounter Details Date Type Department Care Team (Late st Contact Info) Description 09/26/2018 4:48 PM CDT - 09/26/2018 11:59 PM T Hospital Encounter [facility] [address] [place] [address] Vernon Mercedes MD [address] [place] [phone] Discharge Disposition: Home or Self Care (Routine [...] 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 [...] st Contact Info) Description 04/25/2024 11:00 AM EDITOR CONTINUITY AND SCRIPT Appointment [facility] [address] [place] [address] [place] [address] Ti Bonilla MD [address] [place] [phone] 05/23/2024 3:30 PM EDITOR CONTINUITY AND SCRIPT Office Visit [facility] [place] [phone] Jyoti Escobar MD [address] [place] [address] documented as of this encounter Procedures Procedure Name Priority Date/Time Associated Diagnosis Comments HEMOGLOBIN, GLYCOSYLATED Routine 09/26/2018 4:45 PM CDT Type II diabetes mellitus, uncontrolled XR FOOT LT 3V Routine 09/26/2018 4:25 PM CDT Left foot pain documented in this encounter Results * (ABNORMAL) HEMOGLOBIN, GLYCOSYLATED (09/26/2018 4:45 PM CDT) HGB A1C 13.3(H) <5.7 % 09/26/2018 5:09 PM CDT [facility] Comment: 5.7 TO 6.4% INCREASED RISK OF DIABETES > OR = 6.5% CONSISTENT WITH DIABETES PER ADA GUIDELINES ESTIMATED AVG GLUCOSE 335(H) 70 - 140 MG/DL 09/26/2018 5:09 PM CDT [facility] 09/26/2018 4:45 PM CDT Vernon Mercedes MD LABORATORY Final Result [facility] [address] [place] [address], documented in this encounter Visit Diagnoses Diagnosis Type II diabetes mellitus, uncontrolled Type II or unspecified type diabetes mellitus without mention of complication, uncontrolled documented in this encounter Additional Health Concerns Infection Onset Date Last Indicated Resolved Time MRSA Comment:Negative MRSA 05/201903/11/2017 03/11/2017 10/03/2019 10:08 AM CDT documented as of this encounter Care Teams Fertilizer Processing Supervisor Relationship Specialty Start Date End Date Vernon Mercedes MD [address] [place] [address] [place] [phone] PCP - General FAMILY PRACTICE 10/27/15 12/02/21 Stanislaw [place] [place] [address] CARDIOVASCULAR DISEASE 10/27/15 10/24/18 Evaristo [place] [address] [place] Microsoft Dynamics Developer CARDIOVASCULAR DISEASE 08/19/16 Raul [place] [phone] CLINICAL CARDIAC ELECTROPHYSIOLOGY 06/16/17 Myah Handley, PRESCRIPTION CLERK [place] [address] [address] CARDIOVASCULAR DISEASE 06/16/17 07/10/19 Deven [place] [address] [address] Freelance Operator INTERVENTIONAL CARDIOLOGY 03/21/18 10/24/18 documented as of this encounter
--- OUTSIDE RECORDS SUMMARY | 2024-04-23 04:29 | XMS_ITS | Encounter Summary ---
Author Organization [facility] Address [address] [place] [address]. [place], [place] [address] [place] [address] Care Team Providers Care Accounting Instructor Name Role Phone Vernon Mercedes MD Primary Care Provider [phone] Evaristo Allan MD Unavailable UnavailRaul Suresh MD Unavailable Unavailabl Myah Gee NP Unavailable Unavailable Encounter Details Date Type Department Care Team (Late st Contact Info) Description 04/24/2019 Orders Only [facility] [address] [place] [address], [facility] [address] [place] [address] Danny Blackwell MD [address] [place] [address] Social History Tobacco Use Types Packs/Day [...] 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 Not on file documented as of this encounter Plan of Treatment Upcoming Encounters Date Type Department Care Team (Late Contact Info) Description 04/25/2024 11:00 AM STERILE TECHNICIAN Appointment [facility] [address] [facility] [place] [address] Ti Bonilla MD [address] [place] [phone] 05/23/2024 3:30 PM STERILE TECHNICIAN Office Visit [facility] [place] [address] Jyoti Escobar MD [address] [place] [address] documented as of this encounter Results * XR KNEE STAND AP VANITA ONLY (04/25/2019 4:24 PM STERILE TECHNICIAN) Anatomical Region Laterality Modality Knee Radiographic Shannan ging 04/26/2019 4:59 PM STERILE TECHNICIAN Impressions 04/26/2019 5:04 PM STERILE TECHNICIAN IMPRESSION: Stable bilateral knee arthroplasty hardware. Additional stable findings. Interpreted By: Chari Grewal MD, 04/26/2019 4:59 PM Narrative 04/26/2019 5:04 PM STERILE TECHNICIAN EXAMINATION: ??BILATERAL STANDING KNEES AND DEDICATED RIGHT [...] XR KNEE RT 2V (04/25/2019 4:24 PM STERILE TECHNICIAN) Anatomical Region Laterality Modality Knee Radiographic Shannan ging 04/26/2019 4:59 PM STERILE TECHNICIAN Impressions 04/26/2019 5:04 PM STERILE TECHNICIAN IMPRESSION: Stable bilateral knee arthroplasty hardware. Additional stable findings. Interpreted By: Chari Grewal MD, 04/26/2019 4:59 PM Narrative 04/26/2019 5:04 PM STERILE TECHNICIAN EXAMINATION: ??BILATERAL STANDING KNEES AND DEDICATED RIGHT [...] this encounter Visit Diagnoses Diagnosis Right knee pain- Primary Pain in joint, lower leg Right knee pain Pain in joint, lower leg documented in this encounter Additional Health Concerns Infection Onset Date Last Indicated Resolved Time MRSA Comment:Negative MRSA 05/201903/11/2017 03/11/2017 10/03/2019 10:08 AM CDT documented as of this encounter Care Teams Accounting Instructor Relationship Specialty Start Date End Date Vernon [place] [address] [phone] PCP - General FAMILY PRACTICE 10/27/15 12/02/21 Evaristo [place] [place] [address] [place] Legal Writing Professor CARDIOVASCULAR DISEASE 08/19/16 Raul [place] [address] CLINICAL CARDIAC ELECTROPHYSIOLOGY 06/16/17 [place] [address] [address] CARDIOVASCULAR DISEASE 06/16/17 07/10/19 documented as of this encounter
--- OUTSIDE RECORDS SUMMARY | 2024-04-23 04:29 | XMS_ITS | Encounter Summary ---
Author Organization [facility] Address [address] [place] [address]. [place], [place] [address] [place] [address] Care Team Providers Care Metal Annealer Name Role Phone Vernon Mercedes MD Primary Care Provider [phone] Evaristo Allan MD Unavailable UnavailRaul Suresh MD Unavailable UnavailMyah Elena NP Unavailable Unavailable Danny Blackwell MD Unavailable Encounter Details Date Type Department Care Team (Latest Contact Info) Description 06/12/2019 10:23 AM [facility] Hospital Encounter [facility] [address] [facility] [place] [address] Danny Blackwell MD [address] [place] [address] Discharge Disposition: Home or Self [...] 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 Not on file [...] st Contact Info) Description 04/25/2024 11:00 AM MATERIAL MIXER Appointment [facility] [address] [facility] [place] [address] Ti Bonilla MD [address] [place] [phone] 05/23/2024 3:30 PM MATERIAL MIXER Office Visit [facility] [place] [address] Jyoti Escobar MD [address] [place] [address] documented as of this encounter Procedures Procedure Name Priority Date/Time Associated Diagnosis Comments URINALYSIS WI REFLEX TO CULTURE Routine 06/12/2019 10:38 AM MATERIAL MIXER Mechanical complication of internal orthopedic device, implant or graft, initial encounter MRSA SCREENING Routine 06/12/2019 10:34 AM MATERIAL MIXER Mechanical complication of internal orthopedic device, implant or graft, initial encounter HEMOGLOBIN, GLYCOSYLATED Routine 06/12/2019 10:33 AM MATERIAL MIXER Diabetes ([facility] H[facility]) BASIC METABOLIC PANEL Routine 06/12/2019 10:33 AM MATERIAL MIXER Mechanical complication of internal orthopedic device, implant or graft, initial encounter CBC W/DIFF AUTOMATED Routine 06/12/2019 10:33 AM MATERIAL MIXER Mechanical complication of internal orthopedic device, implant or graft, initial encounter documented in this encounter Results * (ABNORMAL) URINALYSIS WI REFLEX TO CULTURE (06/12/2019 10:38 AM MATERIAL MIXER) COLOR (U) YELLOW 06/12/2019 10:54 AM MATERIAL MIXER [facility] TRANSPARENCY CLEAR 06/12/2019 10:54 AM MATERIAL MIXER [facility] SPECIFIC GRAVITY (U) 1.025 1.000 - 1.025 06/12/2019 10:54 AM MATERIAL MIXER [facility] U PH 7.0 5.0 - 8.0 06/12/2019 10:54 AM MATERIAL MIXER [facility] LEUKOCYTES (U) NEGATIVE NEGATIVE 06/12/2019 10:54 AM MATERIAL MIXER [facility] NITRITES NEGATIVE NEGATIVE 06/12/2019 10:54 AM [facility] PROTEIN (U) NEGATIVE NEGATIVE 06/12/2019 10:54 AM [facility] URINE GLUCOSE TRACE(A) NEGATIVE 06/12/2019 10:54 AM [facility] KETONES MG/DL (U) NEGATIVE NEGATIVE 06/12/2019 10:54 AM [facility] UROBILINOGEN 0.2 <1.0 EU/DL 06/12/2019 10:54 AM [facility] BILIRUBIN (U) NEGATIVE NEGATIVE 06/12/2019 10:54 AM [facility] BLOOD (U) TRACE(A) NEGATIVE 06/12/2019 10:54 AM [facility] WBC/HPF 0-5 0 - 5 /HPF 06/12/2019 10:54 AM [facility] EPI/HPF OCCASIONAL /LPF 06/12/2019 10:54 AM [facility] CULTURE & SENSITIVITY INDICATED? NOT INDICATED 06/12/2019 10:54 AM [facility] URINE SPECIMEN OBTAINED BY CLEAN CATCH PROCEDURE / Unknown 06/12/2019 10:38 AM MATERIAL MIXER us Danny Blackwell MD URINE ORDERABLES Final Result Performing Organization Address [facility]/ZIP Co de Phone Number [facility] [place] [address], * MRSA SCREENING (06/12/2019 10:34 AM MATERIAL MIXER) SPECIMEN SOURCE RESPIRATORY, NOSE 06/12/2019 10:29 AM MATERIAL MIXER [facility] MRSA BY PCR NASAL METHICILLIN RESISTANT STAPH AUREUS NOT DETECTED 06/14/2019 11:18 AM MATERIAL MIXER [facility] NASAL STRUCTURE / Unknown 06/12/2019 10:34 AM MATERIAL MIXER us Danny Blackwell MD MICROBIOLOGY - GENERAL ORDERAB LES Final Result [facility] [address] [place] [address], [place] [phone] [facility] [address] [place] [address], [place] [phone] * (ABNORMAL) CBC W/DIFF AUTOMATED (06/12/2019 10:33 AM MATERIAL MIXER) WBC 6.3 4.5 - 10.8 x10'3/uL 06/12/2019 10:45 AM [facility] RBC 4.54 4.50 - 6.10 x10'6/uL 06/12/2019 10:45 AM [facility] HGB 12.5(L) 13.0 - 18.0 G/DL 06/12/2019 10:45 AM [facility] HCT 39.1 37.0 - 52.0 % 06/12/2019 10:45 AM [facility] MCV 86.1 78.0 - 100.0 FL 06/12/2019 10:45 AM [facility] MCH 27.5 27.0 - 31.0 PG 06/12/2019 10:45 AM [facility] MCHC 32.0(L) 33.0 - 36.0 G/DL 06/12/2019 10:45 AM [facility] RDW 13.6 11.5 - 14.5 % 06/12/2019 10:45 AM [facility] PLT 272 150 - 350 x10'3/uL 06/12/2019 10:45 AM [facility] MPV 11.1(H) 7.4 - 10.4 FL 06/12/2019 10:45 AM [facility] DIFFERENTIAL COMMENT NORMAL REFERENCE RANGE NOT ESTABLISHED FOR THE PROPORTIONAL LEUKOCYTE DIFFERENTIAL. 06/12/2019 10:45 AM [facility] SEG NEUTROPHILS 63.4 % 0 10:45 AM [facility] LYMPHOCYTES 23.8 % 06/12/2019 10:45 AM [facility] MONOCYTES 9.8 % 06/12/2019 10:45 AM [facility] EOSINOPHILS 1.7 % 06/12/2019 10:45 AM [facility] BASOPHILS 1.1 % 06/12/2019 10:45 AM [facility] IMMATURE GRANS % 0.2 % 06/12/19 20 10:45 AM [facility] NRBC 0.0 % 06/12/2019 10:45 AM [facility] ABS. NEUTROPHILS 3.99 1.60 - 8.30 x10'3/uL 06/12/2019 10:45 AM [facility] ABS. LYMPHOCYTES 1.50 0.80 - 4.70 x10'3/uL 06/12/2019 10:45 AM [facility] ABS. MONOCYTES 0.62 0.00 - 1.50 x10'3/uL 06/12/2019 10:45 AM [facility] ABS. EOSINOPHILS 0.11 0.00 - 0.40 x10'3/uL 06/12/2019 10:45 AM [facility] ABS. BASOPHILS 0.07 0.00 - 0.20 x10'3/uL 06/12/2019 10:45 AM [facility] ABS. IMMATURE GRANULOCYTES 0.01 0.00 - 0.03 x10'3/uL 06/12/2019 10:45 AM [facility] ABS. NUCLEATED RBC'S 0.00 0.00 x10'3/uL 06/12/2019 10:45 AM [facility] 06/12/2019 10:3 3 AM [facility] us Danny Blackwell MD LABORATORY Final Result [facility] [address] [place] [address], * (ABNORMAL) BASIC METABOLIC PANEL (06/12/2019 10:33 AM MATERIAL MIXER) SODIUM S/P/B 140 136 - 145 MMOL/L 06/12/2019 10:54 AM [facility] POTASSIUM S/P/B 4.5 3.5 - 5.1 MMOL/L 06/12/2019 10:54 AM [facility] CHLORIDE S/P/B 103 98 - 107 MMOL/L 06/12/2019 10:54 AM [facility] CO2 28.1 21.0 - 32.0 MMOL/L 06/12/2019 10:54 AM [facility] GLUCOSE 207(H) 70 - 99 MG/DL 06/12/2019 10:54 AM [facility] Comment: FASTING GLUCOSE 100 TO 125 MG/DL IS CONSISTENT WITH IMPAIRED FASTING GLUCOSE. FASTING GLUCOSE >125 MG/DL IS CONSISTENT WITH DIABETES. RANDOM GLUCOSE >200 MG/DL WITH HYPERGLYCEMIC SYMPTOMS IS CONSISTENT WITH DIABETES. PER ADA GUIDELINES BUN 13 6 - 24 MG/DL 06/12/2019 10:54 AM [facility] CREATININE S/P/B 0.83 0.70 - 1.30 MG/DL 06/12/2019 10:54 AM [facility] CALCIUM S/P/B 8.9 8.4 - 10.5 MG/DL 06/12/2019 10:54 AM [facility] ANION GAP 8.9 5.0 - 15.0 MMOL/L 06/12/2019 10:54 AM [facility] OSMOLALITY (CALC) 296 MOSM/KG 020 10:54 AM [facility] Comment:REFERENCE RANGE NOT ESTABLISHED EGFR NON-AFR. AMER. >90 >89 ML/MIN/1. 73 M2 06/12/2019 10:54 AM [facility] EGFR AFR. AMER. >90 >89 ML/MIN/1. 73 M2 06/12/2019 10:54 AM [facility] GFR NOTES GFR REFERENCE S: 06/12/2019 10:54 AM [facility] Comment: THE ESTIMATED GFR IS [...] ml/min/1.73 m2 G5,KIDNEY FAILURE: <15 ml/min/1.73 m2 06/12/2019 10:3 3 AM MATERIAL MIXER us Danny Blackwell MD LABORATORY Final Result Performing Organization Address [facility] Co de Phone Number [facility] [address] [place] [phone], * (ABNORMAL) HEMOGLOBIN, GLYCOSYLATED (06/12/2019 10:33 AM MATERIAL MIXER) HGB A1C 9.8(H) <5.7 % 06/12/2019 11:06 AM MATERIAL MIXER [facility] Comment: 5.7 TO 6.4% INCREASED RISK OF DIABETES > OR = 6.5% CONSISTENT WITH DIABETES PER ADA GUIDELINES ESTIMATED AVG GLUCOSE 235(H) 70 - 140 MG/DL 06/12/2019 11:06 AM MATERIAL MIXER [facility] 06/12/2019 10:3 3 AM MATERIAL MIXER us Danny Blackwell MD LABORATORY Final Result Performing Organization Address [facility] [[email or web address]] de Phone Number [facility] [address] [place] [phone], documented in this encounter Visit Diagnoses Diagnosis Diabetes ([facility]) Mechanical complication of internal orthopedic device, implant or graft, initial encounter ([facility]) documented in this encounter Additional Health Concerns Infection Onset Date Last Indicated Resolved Time MRSA Comment:Negative MRSA 05/201903/11/2017 03/11/2017 10/03/2019 10:08 AM CDT documented as of this encounter Care Teams Metal Annealer Relationship Specialty Start Date End Date Vernon Mercedes MD [address] [place] [address] PCP - General FAMILY PRACTICE 10/27/15 12/02/21 Evaristo Allan MD [address] [place] [address] [place] Purchase Order Checker CARDIOVASCULAR DISEASE 08/19/16 Raul Santana MD [address] [place] [phone] CLINICAL CARDIAC ELECTROPHYSIOLOGY 06/16/17 Myah Handley NP [facility] [place] [address] CARDIOVASCULAR DISEASE 06/16/17 07/10/19 Danny Blackwell MD [address] [place] [phone] ORTHOPAEDIC SURGERY 05/01/19 documented as of this encounter
--- OUTSIDE RECORDS SUMMARY | 2024-04-23 04:29 | XMS_ITS | Encounter Summary ---
Author Organization [facility] Address [address] [place] [address]. [place], [place] [address] [place] [address] Care Team Providers Care Rig Builder Helper Name Role Phone Vernon Mercedes MD Primary Care Provider [phone] Evaristo Allan MD Unavailable UnavailRaul Sruesh MD Unavailable UnavailMyah Elena NP Unavailable Unavailable Encounter Details Date Type Department Care Team (Latest Contact Info) Description 04/25/2019 6:12 PM POOLROOM/POOLHALL MANAGER - 04/25/2019 11:59 PM POOLROOM/POOLHALL MANAGER Hospital Encounter [facility] [address] [facility] [place] [address] Danny Blackwell MD [address] [place] [address] Discharge Disposition: Home or Self [...] 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 [address] [facility] [place] [address] Ti Bonilla MD [address] [place] [phone] 05/23/2024 3:30 PM POOLROOM/POOLHALL MANAGER Office Visit [facility] [place] [address] Jyoti Escobar MD [address] [place], [place] [phone] documented as of this encounter Procedures Procedure Name Priority Date/Time Associated Diagnosis Comments CULTURE, BODY FLUID W/ GRAM STAIN Routine 04/25/2019 5:37 PM POOLROOM/POOLHALL MANAGER Painful orthopaedic hardware CELL COUNT W/ DIFF BODY FLUID Routine 04/25/2019 5:37 PM POOLROOM/POOLHALL MANAGER Painful orthopaedic hardware documented in this encounter Results * CULTURE, BODY FLUID W/ GRAM STAIN (04/25/2019 5:37 PM POOLROOM/POOLHALL MANAGER) SPEC DESCRIPTION KNEE,RIGHT 04/25/2019 6:17 PM POOLROOM/POOLHALL MANAGER [facility] SPECIAL REQUESTS NO SPECIAL REQUEST 04/25/2019 6:17 PM POOLROOM/POOLHALL MANAGER [facility] GRAM STAIN RESULT NO ORGANISMS SEEN 04/25/2019 7:26 PM POOLROOM/POOLHALL MANAGER [facility] GRAM STAIN RESULT MODERATE WBC'S SEEN 04/25/2019 7:26 PM POOLROOM/POOLHALL MANAGER [facility] CULTURE RESULT NO GROWTH 5 DAYS 05/01/2019 9:24 AM POOLROOM/POOLHALL MANAGER [facility] STRUCTURE OF RIGHT KNEE REGION / Unknown 04/25/2019 5:37 PM POOLROOM/POOLHALL MANAGER 04/25/2019 6:18 PM POOLROOM/POOLHALL MANAGER us Danny Blackwell MD MICROBIOLOGY - GENERAL ORDERAB LES Final Result [facility] [address] [place] [address], [phone] [facility] [address] [place] [address], [place] [phone] * CELL COUNT W/ DIFF BODY FLUID (04/25/2019 5:37 PM POOLROOM/POOLHALL MANAGER) SOURCE (FLUID) KNEE,RIGHT 04/25/2019 6:17 PM POOLROOM/POOLHALL MANAGER [facility] WBC (FLUID) 4,077 CELLS/UL 04/25/2019 6:44 PM POOLROOM/POOLHALL MANAGER [facility] RBC (FLUID) 4,000 CELLS/UL 04/25/2019 6:44 PM POOLROOM/POOLHALL MANAGER [facility] SEGS (FLUID) 19 % 04/25/2019 7:44 PM POOLROOM/POOLHALL MANAGER [facility] LYMPHS (FLUID) 56 % 04/25/2019 7:44 PM POOLROOM/POOLHALL MANAGER [facility] MONO (FLUID) 25 % 04/25/2019 7:44 PM POOLROOM/POOLHALL MANAGER [facility] STRUCTURE OF RIGHT KNEE REGION / Unknown 04/25/2019 5:37 PM POOLROOM/POOLHALL MANAGER Danny Blackwell MD BODY FLUIDS AND STOOLS ORDERAB LES Final Result [facility] [address] [place] [address], documented in this encounter Visit Diagnoses Diagnosis Painful orthopaedic hardware (CMS/HCC) documented in this encounter Additional Health Concerns Infection Onset Date Last Indicated Resolved Time MRSA Comment:Negative MRSA 05/201903/11/2017 03/11/2017 10/03/2019 10:08 AM CDT documented as of this encounter Care Teams Rig Builder Helper Relationship Specialty Start Date End Date [place] [address] PCP - General FAMILY PRACTICE 10/27/15 12/02/21 [place]var[place] [address] [place] Injection Operator CARDIOVASCULAR DISEASE 08/19/16 Raul [place] [address] CLINICAL CARDIAC ELECTROPHYSIOLOGY 06/16/17 Myah Handley NP [address] [place] [address] CARDIOVASCULAR DISEASE 06/16/17 07/10/19 documented as of this encounter
--- OUTSIDE RECORDS SUMMARY | 2024-04-23 04:29 | XMS_ITS | Encounter Summary ---
Author Organization [facility] Address [address] [place] [address]. 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 Not on file documented as of this encounter Plan of Treatment Upcoming Encounters Date Type Department Care Team (Late Contact Info) Description 04/25/2024 11:00 AM SANDING MACHINE BUFFER Appointment [facility] [address] [facility] [place] [address] Ti Bonilla MD [address] [place] [phone] 05/23/2024 3:30 PM SANDING MACHINE BUFFER Office Visit [facility] [place] [phone] Jyoti Escobar MD [address] [place] [address] documented as of this encounter Results * CULTURE, BODY FLUID W/ GRAM STAIN (04/25/2019 5:37 PM SANDING MACHINE BUFFER) SPEC DESCRIPTION KNEE,RIGHT 04/25/2019 6:17 PM SANDING MACHINE BUFFER [facility] SPECIAL REQUESTS NO SPECIAL REQUEST 04/25/2019 6:17 PM SANDING MACHINE BUFFER [facility] GRAM STAIN RESULT NO ORGANISMS SEEN 04/25/2019 7:26 PM SANDING MACHINE BUFFER [facility] GRAM STAIN RESULT MODERATE WBC'S SEEN 04/25/2019 7:26 PM SANDING MACHINE BUFFER [facility] CULTURE RESULT NO GROWTH 5 DAYS 05/01/2019 9:24 AM SANDING MACHINE BUFFER [facility] STRUCTURE OF RIGHT KNEE REGION / Unknown 04/25/2019 5:37 PM SANDING MACHINE BUFFER 04/25/2019 6:18 PM SANDING MACHINE BUFFER us Danny Blackwell MD MICROBIOLOGY - GENERAL ORDERAB LES Final Result [facility] [address] [place] [address], [place] [phone] [facility] [address] [place] [address], [place] [phone] * CELL COUNT W/ DIFF BODY FLUID (04/25/2019 5:37 PM SANDING MACHINE BUFFER) SOURCE (FLUID) KNEE,RIGHT 04/25/2019 6:17 PM SANDING MACHINE BUFFER [facility] WBC (FLUID) 4,077 CELLS/UL 04/25/2019 6:44 PM SANDING MACHINE BUFFER [facility] RBC (FLUID) 4,000 CELLS/UL 04/25/2019 6:44 PM SANDING MACHINE BUFFER [facility] SEGS (FLUID) 19 % 04/25/2019 7:44 PM SANDING MACHINE BUFFER [facility] LYMPHS (FLUID) 56 % 04/25/2019 7:44 PM SANDING MACHINE BUFFER [facility] MONO (FLUID) 25 % 04/25/2019 7:44 PM SANDING MACHINE BUFFER [facility] STRUCTURE OF RIGHT KNEE REGION / Unknown 04/25/2019 5:37 PM SANDING MACHINE BUFFER us Danny Blackwell MD BODY FLUIDS AND STOOLS ORDERAB LES Final Result [facility] [address] [place] [address], documented in this encounter Visit Diagnoses Diagnosis Painful orthopaedic hardware (CMS/HCC)- Primary documented in this encounter Additional Health Concerns Infection Onset Date Last Indicated Resolved Time MRSA Comment:Negative MRSA 05/201903/11/2017 03/11/2017 10/03/2019 10:08 AM CDT documented as of this encounter Care Teams Seismograph Operator Relationship Specialty Start Date End [place] [address] PCP - General FAMILY PRACTICE 10/27/15 12/02/21 [place] [address] [place] Air Carrier Maintenance Inspector CARDIOVASCULAR DISEASE 08/19/16 [place] [address] CLINICAL CARDIAC ELECTROPHYSIOLOGY 06/16/17 [place] [address] CARDIOVASCULAR DISEASE 06/16/17 07/10/19 documented as of this encounter
--- OUTSIDE RECORDS SUMMARY | 2024-04-23 04:29 | XMS_ITS | Encounter Summary ---
Author Organization [facility] Address [address] [place] [address]. [place], [place] [address] [place] [address] Care Team Providers Care Core Loader Name Role Phone Vernon Mercedes MD Primary Care Provider [phone] Evaristo Allan MD Unavailable Unavailabl Raul Duran MD Unavailable Unavailabl Myah Gee NP Unavailable Unavailable Danny Blackwell MD Unavailable [phone] Gayle Arce APRN, ENVELOPE FOLD OPERATOR-C Unavailable [phone] Ti Bonilla MD Primary Care Provider [phone] Mendel Shah DPM Unavailable [phone] Jyoti Escobar MD Unavailable [phone] Encounter Details Date Type Department Care Team (Late Contact Info) Description 11/09/2018 Abstract [facility] [address] [place] [phone] Evaristo Allan MD Social History Tobacco Use [...] 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 [address] [place] [address] [place] [address] Ti Bonilla MD [address] [place] [phone] 05/23/2024 3:30 PM APPOINTMENT CLERK Office Visit [facility] [address] [place] [address] [place] [phone] Jyoti Escobar MD [address] [place] [address] documented as of this encounter Procedures Procedure Name Priority Date/Time Associated Diagnosis Comments PROTHROMBIN TIME, VENOUS Routine 11/09/2018 Paroxysmal atrial fibrillation ([facility]) Coronary artery disease of [place] artery of [place] heart with stable angina pectoris Chest pain BASIC METABOLIC PANEL Routine 11/09/2018 Paroxysmal atrial fibrillation ([facility]) Coronary artery disease of [place] artery of [place] heart with stable angina pectoris Chest pain CBC W/DIFF AUTOMATED Routine 11/09/2018 Paroxysmal atrial fibrillation ([facility]) Coronary artery disease of [place] artery [place] heart with stable angina pectoris Chest pain MAGNESIUM Routine 11/09/2018 Paroxysmal atrial fibrillation ([facility]) Coronary artery disease of [place] artery [place] heart with stable angina pectoris Chest pain documented in this encounter Results * BASIC METABOLIC PANEL (11/09/2018) SODIUM S/P/B 137 POTASSIUM S/P/B 4.2 CO2 26 CHLORIDE S/P/B 100 GLUCOSE 202 mg/dL CALCIUM S/P/B 9.0 BUN 21 CREATININE S/P/B 0.99 0.7 - 1.3 11/09/2018 us Evaristo Allan MD LABORATORY Final Resul t * MAGNESIUM (11/09/2018) MAGNESIUM 1.4 11/09/2018 Evaristo Allan MD LABORATORY Final Resul t * PROTHROMBIN TIME, VENOUS (11/09/2018) PROTIME WHOLE BLOOD 13.1 INR WHOLE BLOOD 1.20 11/09/2018 Evaristo Allan MD LABORATORY Final Resul t * CBC W/DIFF AUTOMATED (11/09/2018) WBC 7.3 RBC 4.5 HGB 12.8 HCT 38.8 MCV 86 MCH 28 MCHC 33 RDW 274 11/09/2018 Evaristo Allan MD LABORATORY Final Resul t documented in this encounter Visit Diagnoses Diagnosis Paroxysmal atrial fibrillation ([facility]) Atrial fibrillation Coronary artery disease of [place] artery [place] heart with stable angina pectoris ([facility]) Chest pain Chest pain, unspecified documented in this encounter Additional Health Concerns Infection Onset Date Last Indicated Resolved Time MRSA Comment:Negative MRSA 05/201903/11/2017 03/11/2017 10/03/2019 10:08 AM CDT COVID-19 Rule Out 10/12/2019 10/12/2019 10/13/2019 9:43 PM CDT COVID-19 Rule Out 04/16/2021 04/16/2021 04/16/2021 12:50 PM APPOINTMENT CLERK COVID-19 Confirmed 04/16/2021 04/16/2021 12:32 AM APPOINTMENT CLERK COVID-19 Rule Out 05/23/2021 05/23/2021 05/25/2021 3:02 PM APPOINTMENT CLERK COVID-19 Rule Out 05/25/2021 05/25/2021 05/26/2021 3:50 AM APPOINTMENT CLERK COVID-19 Rule Out 08/31/2021 08/31/2021 09/01/2021 8:03 PM CDT COVID-19 Rule Out 11/14/2021 11/14/2021 11/14/2021 6:17 PM CDT documented as of this encounter Care Teams Core Loader Relationship Specialty Start Date End Date Vernon Mercedes MD [address] [place] [address] PCP - General FAMILY PRACTICE 10/27/15 12/02/21 Ti Bonilla MD [address] [place] [address] PCP - General FAMILY PRACTICE 12/03/21 Evaristo Allan MD [facility] [place] [address] [place] Social Worker Aide CARDIOVASCULAR DISEASE 08/19/16 Raul Santana MD [address] [place], [place] [address] [address] CLINICAL CARDIAC ELECTROPHYSIOLOGY 06/16/17 Myah Handley NP [address] [place], [place] [address] [address] CARDIOVASCULAR DISEASE 06/16/17 07/10/19 Danny Blackwell MD [address] [place] [address] ORTHOPAEDIC SURGERY 05/01/19 Gayle Arce, COIL BUILDER, ENVELOPE FOLD OPERATOR-C [address] [place] [address] [address] [place] [phone] NURSE PRACTITIONER 03/03/20 Mendel Shah DPM [address] [place] [address] Consulting Physician PODIATRY/SURGERY 06/27/23 06/26/24 Jyoti Escobar MD [address] [place] [address] INTERVENTIONAL CARDIOLOGY 12/27/23 documented as of this encounter
--- OUTSIDE RECORDS SUMMARY | 2024-04-23 04:29 | XMS_ITS | Encounter Summary ---
Author Organization [facility] Address [address] [place] [address]. [place], [place] [address] [place] [address] Care Team Providers Care Punching Machine Operator Name Role Phone Vernon Mercedes MD Primary Care Provider [phone] Evaristo Allan MD Unavailable Raul Workman MD Unavailable Unavailabl Myah Gee NP Unavailable Unavailable Reason for Visit * Reason Onset Date Comments Medication Problem 02/01/2019 Insurance Encounter Details Date Type Department Care Team (Late st Contact Info) Description 02/01/2019 Telephone [facility] [address] [place] [address] Raul Santana MD Medication Problem (Insurance) Social History Tobacco Use Types Packs/Day Years [...] 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 Spoke with Wallace at [facility] who reports pradaxa was approved through insurance and was sent to [facility]. [facility] confirms and filled the rx 2 days ago. Informed Evaristo that he may pickling drum operator the rx at any time. He voiced understanding had no further questions. documented in this encounter Plan of Treatment Upcoming Encounters Date Type Department Care Team (Late st Contact Info) Description 04/25/2024 11:00 AM COMMERCIAL FIELD INSPECTOR Appointment [facility] [address] [place] [address] Ti Bonilla MD [address] [place] [phone] 05/23/2024 3:30 PM COMMERCIAL FIELD INSPECTOR Office Visit [facility] [address] [place] [address] Jyoti Escobar MD [address] [place] [address]291 documented as of this encounter Visit Diagnoses Not on filedocumented in this encounter Additional Health Concerns Infection Onset Date Last Indicated Resolved Time MRSA Comment:Negative MRSA 05/201903/11/2017 03/11/2017 10/03/2019 10:08 AM CDT documented as of this encounter Care Teams Punching Machine Operator Relationship Specialty Start Date End Date Vernon Mercedes MD [address] [place] [address] PCP - General FAMILY PRACTICE 10/27/15 12/02/21 [place] [address] [place] Medical Device CARDIOVASCULAR DISEASE 08/19/16 [place] [address] CLINICAL CARDIAC ELECTROPHYSIOLOGY 06/16/17 [place] [address] CARDIOVASCULAR DISEASE 06/16/17 07/10/19 documented as of this encounter
--- OUTSIDE RECORDS SUMMARY | 2024-04-23 04:29 | XMS_ITS | Encounter Summary ---
Author Organization [facility] Address [address] [place] [address]. [place], [place] [address] [place] [address] Care Team Providers Care Teamcenter Solution Architect Name Role Phone Vernon Mercedes MD Primary Care Provider [phone] Evaristo Allan MD Unavailable UnavailRaul Suresh MD Unavailable Unavailabl Danny Lopes MD Unavailable [phone] Encounter Details Date Type Department Care Team (Late st Contact Info) Description 08/22/2019 2:22 PM CDT - 08/22/2019 11:59 PM CDT Hospital Encounter [facility] [address] [place] [address] Vernon Mercedes MD [address] [place] [address] Discharge Disposition: Home or Self [...] PM CDT documented as of this encounter Medications [...] st Contact Info) Description 04/25/2024 11:00 AM POWER CLEANER OPERATOR Appointment [facility] [address] [place] [address] Ti Bonilla MD [address] [place] [phone] 05/23/2024 3:30 PM POWER CLEANER OPERATOR Office Visit [facility] [address] [place] [address] Jyoti Escobar MD [address] [place] [address] documented as of this encounter Procedures Procedure Name Priority Date/Time Associated Diagnosis Comments HEMOGLOBIN, GLYCOSYLATED Routine 08/22/2019 2:35 PM CDT Diabetes mellitus type 2, uncontrolled documented in this encounter Results * (ABNORMAL) HEMOGLOBIN, GLYCOSYLATED (08/22/2019 2:35 PM CDT) HGB A1C 8.5(H) <5.7 % 08/22/2019 2:51 PM CDT [facility] Comment: 5.7 TO 6.4% INCREASED RISK OF DIABETES > OR = 6.5% CONSISTENT WITH DIABETES PER ADA GUIDELINES ESTIMATED AVG GLUCOSE 197(H) 70 - 140 MG/DL 08/22/2019 2:51 PM CDT [facility] 08/22/2019 2:35 PM CDT Vernon Mercedes MD LABORATORY Final Result [facility] [address] [place], [place] [address] [phone] documented in this encounter Visit Diagnoses Diagnosis Diabetes mellitus type 2, uncontrolled Type II or unspecified type diabetes mellitus without mention of complication, uncontrolled documented in this encounter Additional Health Concerns Infection Onset Date Last Indicated Resolved Time MRSA Comment:Negative MRSA 05/201903/11/2017 03/11/2017 10/03/2019 10:08 AM CDT documented as of this encounter Care Teams Teamcenter Solution Architect Relationship Specialty Start Date End Date Vernon Mercedes MD [address] [place] [address] PCP - General FAMILY PRACTICE 10/27/15 12/02/21 Evaristo Allan MD [facility] [place] [address] [place] Retail Office Associate CARDIOVASCULAR DISEASE 08/19/16 Raul Santana MD [facility] [place] [address] CLINICAL CARDIAC ELECTROPHYSIOLOGY 06/16/17 Danny Blackwell MD [address] [place] [address] ORTHOPAEDIC SURGERY 05/01/19 documented as of this encounter
--- OUTSIDE RECORDS SUMMARY | 2024-04-23 04:29 | XMS_ITS | Encounter Summary ---
Author Organization [facility] Address [address] [place] [address]. [place], [place] [address] [place] [address] Care Team Providers Care Storm Sash Maker Name Role Phone Vernon Mercedes MD Primary Care Provider [phone] Evaristo Allan MD Unavailable UnavailRaul Suresh MD Unavailable UnavailMyah Elena NP Unavailable Unavailable Danny Blackwell MD Unavailable [phone] Encounter Details Date Type Department Care Team (Latest Contact Info) Description 06/12/2019 Travel Social History Tobacco Use Types Packs/Day [...] st Contact Info) Description 04/25/2024 11:00 AM CORPORATE AUDITOR Appointment [facility] [place] [place] [address] Ti Bonilla MD [address] [place] [address] 05/23/2024 3:30 PM CORPORATE AUDITOR Office Visit [facility] [address] [address] [address] Jyoti Escobar MD [address] [place] [address] documented as of this encounter Visit Diagnoses Not on filedocumented in this encounter Additional Health Concerns Infection Onset Date Last Indicated Resolved Time MRSA Comment:Negative MRSA 05/201903/11/2017 03/11/2017 10/03/2019 10:08 AM CDT documented as of this encounter Care Teams Storm Sash Maker Relationship Specialty Start Date End Date Vernon Mercedes MD [address] [place] [address] PCP - General FAMILY PRACTICE 10/27/15 12/02/21 Evaristo Allan MD [facility] [place] [address] [place] Pneudraulic Systems Mechanic CARDIOVASCULAR DISEASE 08/19/16 Raul Santana MD [facility] [place] [address] CLINICAL CARDIAC ELECTROPHYSIOLOGY 06/16/17 Myah Handley FINAL APPLICATION REVIEWER [facility] [place] [address] CARDIOVASCULAR DISEASE 06/16/17 07/10/19 Danny Blackwell MD [address] [place] [address] ORTHOPAEDIC SURGERY 05/01/19 documented as of this encounter
--- OUTSIDE RECORDS SUMMARY | 2024-04-23 04:29 | XMS_ITS | Encounter Summary ---
Author Organization [facility] Address [address] [place] [address]. [place], [place] [id number] [place] [id number] Care Team Providers Care Manager General Name Role Phone Vernon Delgado MD Primary Care Provider Stanislaw Rhodes MD Unavailable Unavailab Evaristo Ying MD Unavailable UnavailRaul Suresh MD Unavailable UnavailMyah Elena NP Unavailable Unavailable Deven Cleary MD Unavailable Unavailable Reason for Visit * Reason Comments Follow Up Palpitations Encounter Details Date Type Department Care Team (Latest Contact Info) Description 10/17/2018 9:30 AM CDT Office Visit [facility] [address] [place] [phone] Myah Handley NP Follow Up (Palpitations) Social History Tobacco Use Types Packs/Day Years [...] 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 Not on file Not on file documented as of this encounter Last Filed Vital Signs Vital Sign Reading Time Taken Comments Blood Pressure 120/70 10/17/2018 9:18 AM CDT Pulse 75 10/17/2018 9:18 AM CDT Temperature - - Respiratory Rate 18 10/17/2018 9:18 AM CDT Oxygen Saturation - - Inhaled Oxygen Concentration - - Weight 117.5 kg (259 lb) 10/17/2018 9:18 AM CDT Height 180.3 cm (5' 11 ) 10/17/2018 9:18 AM CDT Body Mass Index 36.12 10/17/2018 9:18 AM CDT documented in this encounter Progress Notes * JUMANA Simms - 10/17/2018 9:30 AM CDT Reason for Visit: Follow Up (Palpitations) History of Present Illness: Mr. Zelaya is a very pleasant 58 year old man with a history of atrial fibrillation, coronary arterydisease s/p LIBRARY ASSOCIATE PCI. He underwent pulmonary vein isolation on May 19, 2016. He presents today for follow up due to palpitations. In April, he reported palpitations when seeing his primary administrative library assistant. A 21 day monitor was obtained. This revealed sinus rhythm throughout, with one transmission of sinus tachycardia with rates between 11-116 bpm. The other recordings were sinus rhythm with rare atrial ectopy. During symptoms of heart racing, his heart rate was 90 bpm withno ectopy. He reports he primarily feels palpitations when he lies down at night, and has this sensation for only several months. He reports chest pain intermittently, both with activity and at rest.He has used his sublingual nitroglycerin as well. He denies syncope or presyncope. He reports shortness of breath on exertion. He continues pradaxa 150 mg twice daily and is tolerating this without abnormal bleeding or bruising. He remains on brilinta and aspirin as well post LIBRARY ASSOCIATE PCI in March 2018. EKG today reveals normal sinus rhythm. A single PAC is recorded. Recommendations and Plan: 1. Palpitations: I do not suspect his short episodes of palpitations are due to atrial fibrillation. His 21 day monitor from April was reassuring. Symptoms during his monitor revealed sinus rhythm,and sinus rhythm with rare ectopy. I recommend we continue his current dose of metoprolol [id number] mg twice daily. 2. Stroke risk: His CHADS-VASc score is at least 2 out of 9. He continues Pradaxa 150 mg twice daily without abnormal bleeding or bruising. I recommend we continue this for the foreseeable future. 3. Chest pain: I have notified Dr. Allan's office of his chest pain, and he will be seen in the near future. 4. We will plan follow up in approximately 1 year. We would be pleased to see him sooner should anything arise from an electrophysiologic standpoint. Medications: Current Outpatient Medications: ??? amitriptyline 50 [...] CATHETERIZATION 01/04/2018 occluded prox RCA w/well developed [id number] collaterals lvef 55-60% ??? FRACTURE SURGERY ??? HERNIA REPAIR ??? KNEE ARTHROPLASTY ??? XA ABLATION 05/19/2016 ??? XA CORONARY INTERVENTION 03/24/[address] Cleary Social History Tobacco Use ??? [...] and snoring. Cardiovascular: See HPI Positive for chest pain and palpitations. Gastrointestinal: Negative for blood in stool and melena. Genitourinary: Negative for dysuria. Musculoskeletal: Negative for myalgias and new or worsening joint stiffness/pain. Skin: Negative for rash. Neurological: Negative for tingling/numbness and focal weakness. Endo/Heme/Allergies: Negative for new or significant bruising/bleeding and polydipsia. Psychiatric/Behavioral: Negative for depression and new or significant memory loss. Filed Vitals: 07/02/19 0918 BP: 120/70 Pulse: 75 Resp: 18 Weight: 117.5 kg (259 lb) Height: 5' 11 (1.803 m) Body mass index is 36.12 kg/m??. Physical Exam Rate/Rhythm: regular rhythm and normal rate . Heart Sounds: normal heart sounds, normal S1 and normal S2 no gallop, no S3 sound, no S4 sound and no murmur. . PMI: PMI not displaced. Pulses: normal pulses negative for edema Constitutional: healthy appearance not distressed. . Neck: neck supple no JVD. . Pulmonary/Chest Wall: effort normal and breath sounds normal . HEENT: teeth/gums normal and oropharynx clear and moist. . Abdomen: no tenderness, no mass, no hepatomegaly, no splenomegaly, abdominal aorta not palpably enlarged and no abdominal aortic bruit. . Eyes: conjunctivae normal. Neurological: alert, oriented x 3 and appropriate for situation, . Skin: dry and warm no cyanosis and no clubbing. Musculoskeletal: no kyphosis Cardiovascular Comments: Diagnoses/Impression: 1. Premature atrial contractions 2. Paroxysmal atrial fibrillation (CMS/HCC) 3. S/P ablation of atrial fibrillation 4. Current use of tank terminal gauger anticoagulation 5. Chest pain, unspecified type PINNACLE Documentation Completed: Atrial Fibrillation Referring Provider: Vernon Delgado PCP: VERNON DELGADO MD documented in this encounter Plan of Treatment Upcoming Encounters Date Type Department Care Team (Late st Contact Info) Description 04/25/2024 11:00 AM RAIL OPERATIONS CONTROLLER Appointment [facility] [place] [address] Ti Bonilla MD [address] [place] [phone] 05/23/2024 3:30 PM RAIL OPERATIONS CONTROLLER Office Visit [facility] [address] [place] [address] Jyoti Escobar MD [address] [place] [phone] documented as of this encounter Visit Diagnoses Diagnosis Premature atrial contractions- Primary Supraventricular premature beats Paroxysmal atrial fibrillation ([facility]/HCC [facility]) Atrial fibrillation S/P ablation of atrial fibrillation Other postprocedural status Current use of snf anticoagulation Encounter for long-term (current) use of anticoagulants Chest pain, unspecified type documented in this encounter Additional Health Concerns Infection Onset Date Last Indicated Resolved Time MRSA Comment:Negative MRSA 05/201903/11/2017 03/11/2017 10/03/2019 10:08 AM CDT documented as of this encounter Care Teams Manager General Relationship Specialty Start Date End Date Vernon Delgado MD [address] [place] [phone] PCP - General FAMILY PRACTICE 10/27/15 12/02/21 Stanislaw Rhodes MD [address] [place] [phone] CARDIOVASCULAR DISEASE 10/27/15 10/24/18 Evaristo Allan MD [address] [place] [address] [phone] [employer] CARDIOVASCULAR DISEASE 08/19/16 Raul Santana MD [address] [place] [address] [phone] CLINICAL CARDIAC ELECTROPHYSIOLOGY 06/16/17 [place] [place] [phone] CARDIOVASCULAR DISEASE 06/16/17 07/10/19 Deven [place] [address] [phone] Wrecking [employer] INTERVENTIONAL CARDIOLOGY 03/21/18 10/24/18 documented as of this encounter
--- OUTSIDE RECORDS SUMMARY | 2024-04-23 04:29 | XMS_ITS | Encounter Summary ---
Author Organization [facility] Address [address] [place] [address]. [place], [place] [id number] [place] [address] Care Team Providers Care Health Professional Name Role Phone Vernon Mercedes MD Primary Care Provider [phone] Stanislaw Rhodes MD Unavailable Unavailab Evaristo Ying MD Unavailable UnavailRaul Suresh MD Unavailable UnavailMyah Elena NP Unavailable Unavailable Deven Cleary MD Unavailable Unavailable Reason for Visit * Reason Onset Date Comments Chest Pain 10/17/2018 Encounter Details Date Type Department Care Team (Late st Contact Info) Description 10/17/2018 Telephone [facility] [address] [place] [address] Myah Handley NP Chest Pain Social History Tobacco Use Types [...] 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 [place] 10[place]26 at 3 PM * Chelsea Garcia LPN - 10/17/2018 9:57 AM CDT Patient here to see Myah in clinic for follow up on atrial fibrillation. 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 Patient has used his nitroglycerine andpain is relieved. Myah wanted me to message Dr Allan's Office to make them aware and to f/u with patient, Patient aware a message was sent to Dr Allan's Office . documented in this encounter Plan of Treatment Upcoming Encounters Date Type Department Care Team (Late st Contact Info) Description 04/25/2024 11:00 AM PSYCHOLOGISTS Appointment [facility] [address] [place] [address] Ti Bonilla MD [address] [place] [phone] 05/23/2024 3:30 PM PSYCHOLOGISTS Office Visit [facility] [address] [place] [address] Jyoti Escobar MD [address] [place] [phone] documented as of this encounter Visit Diagnoses Not on filedocumented in this encounter Additional Health Concerns Infection Onset Date Last Indicated Resolved Time MRSA Comment:Negative MRSA 05/201903/11/2017 03/11/2017 10/03/2019 10:08 AM CDT documented as of this encounter Care Teams Health Professional Relationship Specialty Start Date End Date Vernon Mercedes MD [address] [place] [phone] PCP - General FAMILY PRACTICE 10/27/15 12/02/21 Stanislaw Rhodes MD [address] [place] [phone] CARDIOVASCULAR DISEASE 10/27/15 10/24/18 Evaristo Allan MD [address] [place] [phone] [employer] CARDIOVASCULAR DISEASE 08/19/16 Raul Santana MD [address] [place] [phone] CLINICAL CARDIAC ELECTROPHYSIOLOGY 06/16/17 Myah Handley CREDIT OFFICE MANAGER [address] [place] [phone] CARDIOVASCULAR DISEASE 06/16/17 07/10/19 Deven Cleary MD [address] [place] [address] Supervisor [employer] INTERVENTIONAL CARDIOLOGY 03/21/18 10/24/18 documented as of this encounter
--- OUTSIDE RECORDS SUMMARY | 2024-04-23 04:29 | XMS_ITS | Encounter Summary ---
Author Organization [facility] Address [address] [place] [address]. 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 (CMS/HCC) Chest pain Procedures XA [facility] Elza Hankins MD [address] [place] [address] [facility] [address] [place] [address] Phone: tel: fax: Referral ID Status Reason Start Date Expiration Date Visits Re quested Visits Authorized [id number] Closed 11/06/2018 12/21/2018 1 1 Reason for Visit * Imaging (Routine) - Closed Specialty Diagnoses / Procedures Referred By Charito ledbetter Referred To Contact CARDIOLOGY Diagnoses Paroxysmal atrial fibrillation (CMS/HCC HHS/HCC) Coronary artery disease of [place] artery of [place] heart with stable angina pectoris (CMS/HCC) Chest pain Procedures [facility] Elza Hankins MD [address] [place] [address] [facility] [address] [place] [address] Phone: tel: fax: Referral ID Status Reason Start Date Expiration Date Visits Re quested Visits Authorized [id number] Closed 11/06/2018 12/21/2018 1 1 Encounter Details Date Type Department Care Team (Latest Contact Info) Description 11/13/2018 7:32 AM CDT - 11/13/2018 2:18 PM CDT Hospital Encounter 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 Not on file Not on file documented as of this encounter Last Filed Vital Signs Vital Sign Reading Time Taken Comments Blood Pressure 114/66 11/13/2018 8:35 AM CDT L arm 117/65 Pulse 73 11/13/2018 8:35 AM CDT Temperature 36.2 ??C (97.2 ??F) 11/13/2018 8 :35 AM CDT Respiratory Rate 18 11/13/2018 8:35 AM CDT Oxygen Saturation 98% 11/13/2018 8:3 5 AM CDT Inhaled Oxygen Concentration - - Weight 117.6 kg (259 lb 4.2 oz) 11/13/2018 8:02 AM CDT Height 174 cm (5' 8.5 ) 11/13/2018 8:02 AM CDT Body Mass Index 38.84 11/13/2018 8:02 AM CDT documented in this encounter Discharge Instructions * Discharge Instructions* Teagan Gutierrez RN - 11/13/2018 1:57 PM CDT HOLD METFORMIN FOR 48 HOURS Post Catheterization Discharge - Radial Approach 1. Do not bend wrist for 48 hours. Avoid using your wrist when standing out of a chair. 2. Drink 3-4 glasses of water over the next 8 hours and resume routine diet. 3. A medication list and instructions have been provided separately. 4. Do not drive for 48 hours after procedure. 5. No lifting more than 5 pounds and no exercise (including golf and tennis) for 48 hours. 6 Do not operate equipment, such as an ATV, design tech, chainsaw, or motorcycle for 48 hours. 7. Notify your configuration technician of swelling or drainage at the site, or numbness, tingling, coldness, or cramping in hand/arm during rest or activity. Soreness is normal. Take Tylenol for pain. 8. Notify your configuration technician or your primary care physician if you develop a fever greater than 101 degrees. 9. If the site begins to bleed, sit down and hold firm pressure directly to the site. If bleeding stops, continue to sit, keeping wrist straight and contact physician as soon as possible. If bleedingdoes not stop, call 911 immediately. 10. Remove dressing 24 hours after the procedure. Do not scrub the site or apply direct water to area. No dishes in the sink. You may shower - pat the site dry, but do not rub! 11. If you experience any problems, please call your primary care physician or your configuration technician [phone]. * Attachments The following attachments cannot be sent through Care Everywhere. * Moderate Sedation in Adults Discharge Instructions (Iranian) documented in this encounter Medications at Time [...] 2 (two) times daily. 180 capsule 3 10/17/2018 03/30/2019 furosemide 20 MG tablet Take 20 mg [...] 32G X 6 MM Misc 10/25/2018 09/28/2019 ranitidine 150 MG tablet Take 150 mg [...] 10/25/2018 09/28/2019 documented as of this encounter OR Notes * Brief Op Note - Abdulkadir Downing MD - 11/13/2018 11:03 AM CDT Elza Mckeon 11/13/2018 Procedure: FFR Pre-Op Diagnosis: Chest pain, CAD, s/p PCI. Post-Op Diagnosis: CAD, s/p PCI. Findings: See MERGE report. FFR of the RCA performed with IV adenosine. It measured 0.90 - not significant. Specimen(s) Removed: None Anesthesia: Procedural Surgeon: ABDULKADIR DOWNING MD Estimated Blood Loss: Minimal Plan: Medical therapy ABDULKADIR DOWNING MD Date: 11/13/2018 Time:11:03 AM * Brief Op Note - Elza Allan MD - 11/13/2018 10:59 AM CDT General Procedure Op Note Procedure Note Elza Mckeon 11/13/2018 Procedure: Cardiac catheterization Pre-Op Diagnosis: CAD Post-Op Diagnosis: Same Findings: 1. Minimal CAD without flow restricting stenosis. 2. Stented segments in proximal/mid RCA. 3. No LV gram. Specimen(s) Removed: None Anesthesia: Local and Procedural Surgeon: Jerrell Tape Stringer: Dr Downing consulted for Flow wire assessment. Estimated Blood Loss: Minimal ELZA ALLAN MD Date: 11/13/2018 Time: 11:00 AM documented in this encounter Plan of Treatment Upcoming Encounters Date Type Department Care Team (Late st Contact Info) Description 04/25/2024 11:00 AM MARKET ASSET PROTECTION MANAGER Appointment [facility] [address] [place] [address] Ti Bonilla MD [address] [place] [phone] 05/23/2024 3:30 PM MARKET ASSET PROTECTION MANAGER Office Visit [facility] [address] [place] [address] Jyoti Escobar MD [address] [place] [address] documented as of this encounter Procedures Procedure Name Priority Date/Time Associated Diagnosis Comments [facility]A [facility] POSS Routine 11/13/2018 10:55 AM CDT Paroxysmal atrial fibrillation ([facility]) Coronary artery disease of [place] artery of [place] heart with stable angina pectoris Chest pain ECG 12-LEAD STAT 11/13/2018 8:38 AM CDT POCT GLUCOSE - RAMOS DOCKED DEVICE Routine 11/13/2018 8:18 AM CDT documented in this encounter Results * XA [facility] POSS (11/13/2018 10:55 AM CDT) Anatomical Region Laterality Modality Cardiac Transfusion Nurse 11/13/2018 9:30 AM CDT us Elza Allan MD CASHIERS SUPERVISOR Final Resul t * ECG 12 lead (11/13/2018 8:38 AM CDT) 11/13/2018 8:38 AM CDT Narrative [facility] - 11/13/2018 9:35 AM CDT ? [facility] ?[address] [place], [place] ??[address] ? Test Date: ?2018-11-13 Pat Name: ? ELZA MCKEON ? Department: ? Room: ? [id number] Gender: ? Male ? Material Planner: ?? psp : ?1960 ? Requested By: ELZA ALLAN Order Number: [id number] ? Reading : ?? Matthew Colunga ? Measurements Intervals ?[place] ? Rate: ? 71 ? P: ?-3 WA: ? 120 ?QRS: ?34 QRSD: ? 99 ? T: ?24 QT: ? 390 ? QTc: ?427 ? Interpretive Statements SINUS RHYTHM INCOMPLETE RIGHT BUNDLE BRANCH BLOCK Procedure Note Matthew Colunga MD - 11/13/2018 [place] [address] [place] [address] Test Date: 2018-11-13 Pat Name: ELZA CHINOS Department: Room: [address] Gender: Male Material Planner: kane : 1960 Requested By: ELZA ALLAN Order Number: [id number] Reading MD: Matthew Colunga Measurements Intervals [place] Rate: 71 P: -3 WA: 120 QRS: 34 QRSD: 99 T: 24 QT: 390 QTc: 427 Interpretive Statements SINUS RHYTHM INCOMPLETE RIGHT BUNDLE BRANCH BLOCK us Elza Allan MD ECG ORDERABLES Final Resul t Performing Organization Address City/[facility]/ZIP Co de Phone Number [facility] RAD * (ABNORMAL) POCT glucose (11/13/2018 8:18 AM CDT) [facility] GLUCOSE POC 415(H) 70 - 109 11/13/2018 8:25 AM CDT [facility] LAB ORDERS INTERFACE 11/13/2018 8:18 AM CDT Elza Allan MD POCT ORDERABLES - DEVICE Fi nal Result Performing Organization Address City/[facility] de Phone Number [facility] ORDERS INTERFACE US documented in this encounter Visit Diagnoses Diagnosis Paroxysmal atrial fibrillation ([facility]/HCC [facility]/HCC) Atrial fibrillation Coronary artery disease of [place] artery of [place] heart with stable angina pectoris ([facility]) Chest pain Chest pain, unspecified documented in this encounter Administered Medications Inactive Administered Medications - up to 3 most recent administrations Medication Order MAR Action Action Date Dose Rate Site acetaminophen (TYLENOL) tablet 325 mg 325 mg, Oral, Every 4 hours PRN, Mild pain (Scale 1 - 3), Starting on Tue11/13/18 at 1126, Until Tue11/13/18 at 1623, Maximum dose of acetaminophen is 4000 mg from all sources in 24 hours., Post-Op acetaminophen (TYLENOL) tablet 650 mg 650 mg, Oral, Every 4 hours PRN, Mild pain (Scale 1 - 3), Starting on Tue11/13/18 at 0805, Until Tue11/13/18 at 1623, Maximum dose of acetaminophen is 4000 mg from all sources in 24 hours., Pre-Op atropine injection 0.5 mg 0.5 mg, Intravenous, Once as needed, Other, for heart rate less than 50 bpm and / or SBP less than 90 mmHg, 1 dose, Starting on Tue11/13/18 at 1126, Until Tue11/13/18 at 1623, Post-Op insulin lispro (HUMALOG) injection 8 Units 8 Units, Subcutaneous, Once, 1 dose, On Tue11/13/18 at 0915, For sliding scale, activate Sliding Scale Insulin order set Given 11/13/2018 9:05 AM CDT 8 Units Right Lower Abdomen oaayqnfmt-dzzdvzxm-aastut icone (MAALOX, MYLANTA EXTRA STRENGTH) 0562-0805-966 mg/30mL suspension 10 mL, Oral, Every 4 hours PRN, Indigestion, Heartburn, Starting on Tue11/13/18 at 1126, Until Tue11/13/18 at 1623, Shake Well, Post-Op nitroglycerin (NITROSTAT) SL tablet 0.4 mg 0.4 mg, Sublingual, Every 5 min PRN, Chest Pain, 3 doses, Starting on Tue11/13/18 at 0805, Until Tue11/13/18 at 1623, Notify provider if pain not relieved by one tablet. Hold for SBP less than 90 mmHg., Pre-Op nitroglycerin (NITROSTAT) SL tablet 0.4 mg 0.4 mg, Sublingual, Every 5 min PRN, Chest Pain, 3 doses, Starting on Tue11/13/18 at 1126, Until Tue11/13/18 at 1623, Notify MD if not relieved by one tablet. HOLD for SBP less than 90., Post-Op ondansetron (ZOFRAN) injection 4 mg 4 mg, Intravenous, Every 4 hours PRN, Nausea, Vomiting, Starting on Tue11/13/18 at 0805, Until Tue11/13/18 at 1623, Pre-Op ondansetron (ZOFRAN) injection 4 mg 4 mg, Intravenous, Every 4 hours PRN, Nausea, Vomiting, Starting on Tue11/13/18 at 1126, Until Tue11/13/18 at 1623, Post-Op senna-docusate (SENOKOT-S) 8.6-50 MG tablet 2 tablet 2 tablet, Oral, Nightly PRN, Constipation, Starting on Tue11/13/18 at 1126, Until Tue11/13/18 at 1623, Post-Op sodium chloride 0.9% infusion at 100 mL/hr, Intravenous, Continuous, Starting on Tue11/13/18 at 1145, Until Tue11/13/18 at 1623, Post-Op documented in this encounter Active and Recently Administered Medications Times are shown in CDT. Scheduled Medication Order 11/11/2018 11/12/2018 11/13/2018 insulin lispro (HUMALOG) injection 8 Units (COMPLETED) 8 Units, Subcutaneous, Once, 1 dose, On Tue11/13/18 at 0915, For sliding scale, activate Sliding Scale Insulin order set 0905 (Given - Provid er: Shari Espino RN) Continuous Medication Order 11/11/2018 11/12/2018 11/13/2018 sodium chloride 0.9% infusion at 100 mL/hr, Intravenous, Continuous, Starting on Tue11/13/18 at 1145, Until Tue11/13/18 at 1623, Post-Op 1145 (Canceled Entry - Provider: Automatic Discharge Provider - Comment: Automatically canceled at discontinue of medication order) PRN Medication Order 11/11/2018 11/12/2018 11/13/2018 acetaminophen (TYLENOL) tablet 325 mg 325 mg, Oral, Every 4 hours PRN, Mild pain (Scale 1 - 3), Starting on Tue11/13/18 at 1126, Until Tue11/13/18 at 1623, Maximum dose of acetaminophen is 4000 mg from all sources in 24 hours., Post-Op acetaminophen (TYLENOL) tablet 650 mg 650 mg, Oral, Every 4 hours PRN, Mild pain (Scale 1 - 3), Starting on Tue11/13/18 at 0805, Until Tue11/13/18 at 1623, Maximum dose of acetaminophen is 4000 mg from all sources in 24 hours., Pre-Op atropine injection 0.5 mg 0.5 mg, Intravenous, Once as needed, Other, for heart rate less than 50 bpm and / or SBP less than 90 mmHg, 1 dose, Starting on Tue11/13/18 at 1126, Until Tue11/13/18 at 1623, Post-Op omlpazgik-yeuvlkfl-ujfcigszdqk (MAALOX, MYLANTA EXTRA STRENGTH) 2618-2851-780 mg/30mL suspension 10 mL, Oral, Every 4 hours PRN, Indigestion, Heartburn, Starting on Tue11/13/18 at 1126, Until Tue11/13/18 at 1623, Shake Well, Post-Op nitroglycerin (NITROSTAT) SL tablet 0.4 mg 0.4 mg, Sublingual, Every 5 min PRN, Chest Pain, 3 doses, Starting on Tue11/13/18 at 0805, Until Tue11/13/18 at 1623, Notify provider if pain not relieved by one tablet. Hold for SBP less than 90 mmHg., Pre-Op nitroglycerin (NITROSTAT) SL tablet 0.4 mg 0.4 mg, Sublingual, Every 5 min PRN, Chest Pain, 3 doses, Starting on Tue11/13/18 at 1126, Until Tue11/13/18 at 1623, Notify MD if not relieved by one tablet. HOLD for SBP less than 90., Post-Op ondansetron (ZOFRAN) injection 4 mg 4 mg, Intravenous, Every 4 hours PRN, Nausea, Vomiting, Starting on Tue11/13/18 at 0805, Until Tue11/13/18 at 1623, Pre-Op ondansetron (ZOFRAN) injection 4 mg 4 mg, Intravenous, Every 4 hours PRN, Nausea, Vomiting, Starting on Tue11/13/18 at 1126, Until Tue11/13/18 at 1623, Post-Op senna-docusate (SENOKOT-S) 8.6-50 MG tablet 2 tablet 2 tablet, Oral, Nightly PRN, Constipation, Starting on Tue11/13/18 at 1126, Until Tue11/13/18 at 1623, Post-Op documented in this encounter Additional Health Concerns Infection Onset Date Last Indicated Resolved Time MRSA Comment:Negative MRSA 05/201903/11/2017 03/11/2017 10/03/2019 10:08 AM CDT documented as of this encounter Care Teams Cellar Supervisor Relationship Specialty Start Date End Date Vernon Mercedes MD [address] [place] [address] PCP - General FAMILY PRACTICE 10/27/15 12/02/21 Elza Allan MD [address] [place] [address] [place] Labor Supervisor CARDIOVASCULAR DISEASE 08/19/16 Raul Santana MD [address] [place] [address] CLINICAL CARDIAC ELECTROPHYSIOLOGY 06/16/17 Myah Handley NP [address] [place] [address] CARDIOVASCULAR DISEASE 06/16/17 07/10/19 documented as of this encounter
--- OUTSIDE RECORDS SUMMARY | 2024-04-23 04:29 | XMS_ITS | Encounter Summary ---
Author Organization [facility] Address [address] [place] [address]. 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 [address] [place] [address] Ti Bonilla MD [address] [place] [phone] 05/23/2024 3:30 PM RN FAMILY [facility] [address] [place] [address] Jyoti Escobar MD [address] [place] [address] documented as of this encounter Visit Diagnoses Not on filedocumented in this encounter Additional Health Concerns Infection Onset Date Last Indicated Resolved Time MRSA Comment:Negative MRSA 05/201903/11/2017 03/11/2017 10/03/2019 10:08 AM CDT documented as of this encounter Care Teams Location And Measurement Technician Relationship Specialty Start Date End Date Vernon Mercedes MD [address] [place] [address] PCP - General FAMILY PRACTICE 10/27/15 12/02/21 [place] [address] [place] [employer] CARDIOVASCULAR DISEASE 08/19/16 [place] [address] CLINICAL CARDIAC ELECTROPHYSIOLOGY 06/16/17 [place] [address] CARDIOVASCULAR DISEASE 06/16/17 07/10/19 documented as of this encounter
--- OUTSIDE RECORDS SUMMARY | 2024-04-23 04:29 | XMS_ITS | Encounter Summary ---
Author Organization [facility] Address [address] [place] [address]. [place], [place] [address] [place] [address] Care Team Providers Care Tool Design Engineer Name Role Phone Vernon Mercedes MD Primary Care Provider [phone] Evaristo Allan MD Unavailable UnavailRaul Suresh MD Unavailable Unavailabl e Myah Handley NP Unavailable Unavailable Reason for Visit * Reason Onset Date Comments Medication Problem 11/02/2018 Encounter Details Date Type Department Care Team (Late st Contact Info) Description 11/02/2018 Telephone [facility]ASC[facility] [employer] [facility] [address] [place] [address] Evaristo Allan MD Medication Problem Social History Tobacco Use Types Packs/Day [...] 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 Spoke with pt. He states he was in AF last night for 5 min, feeling worse, increasing cp episodes. Discussed plans for QUOTER. Instructed to go to ER if CP worsens or is not relieved. He verbalizes understanding * Mavis Greenfield Jamel - 11/02/2018 1:04 PM CDT Pt called stating Dr. Allan told him to try ibuprofen for his chest pain and pt states it made it worse. Pt can be reached at [phone]. documented in this encounter Plan of Treatment Upcoming Encounters Date Type Department Care Team (Late st Contact Info) Description 04/25/2024 11:00 AM GENETIC COUNSELLOR Appointment [facility] [address] [place] [address] Ti Bonilla MD [address] [place] [phone] 05/23/2024 3:30 PM GENETIC COUNSELLOR Office Visit [facility] [address] [place] [address] Jyoti Escobar MD [address] [place] [address] documented as of this encounter Visit Diagnoses Not on filedocumented in this encounter Additional Health Concerns Infection Onset Date Last Indicated Resolved Time MRSA Comment:Negative MRSA 05/201903/11/2017 03/11/2017 10/03/2019 10:08 AM CDT documented as of this encounter Care Teams Tool Design Engineer Relationship Specialty Start Date End Date Vernon Mercedes MD [address] [place] [phone] PCP - General FAMILY PRACTICE 10/27/15 12/02/21 Evaristo Allan MD [address] [place] [address] [place] Avionic Technician CARDIOVASCULAR DISEASE 08/19/16 Raul Santana MD [address] [place] [address] CLINICAL CARDIAC ELECTROPHYSIOLOGY 06/16/17 Myah Handley NP [address] [place] [address] CARDIOVASCULAR DISEASE 06/16/17 07/10/19 documented as of this encounter
--- OUTSIDE RECORDS SUMMARY | 2024-04-23 04:29 | XMS_ITS | Encounter Summary ---
Author Organization [facility] Address [address] [place] [address]. [place], [place] [address] [place] [address] Care Team Providers Care Heel Splitter Name Role Phone Vernon Mercedes MD Primary Care Provider [phone] Evaristo Allan MD Unavailable Unavailpavel Santana, Raul Reyes MD Unavailable Unavailabl pablo Handley, Myah Vivas NP Unavailable Unavailable Danny Blackwell MD Unavailable [phone] Reason for Referral * Surgical (Routine) - Closed Specialty Diagnoses / Procedures Referred By Charito ledbetter Referred To Contact Diagnoses [id number] Procedures Case request operating room: Revision RIGHT Total Knee ArthroplastyNate notifiedCardiac clearance per Dr. 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 Not on file Not on file documented as of this encounter Plan of Treatment Upcoming Encounters Date Type Department Care Team (Late st Contact Info) Description 04/25/2024 11:00 AM CORK MIXER Appointment [facility] [address] [place] [address] [place] [address] Ti Bonilla MD [address] [place] [phone] 05/23/2024 3:30 PM CORK MIXER Office Visit [facility] [address] [place] [address] [place] [phone] Jyoti Escobar MD [address] [place] [address] [phone] documented as of this encounter Results * (ABNORMAL) URINALYSIS WI REFLEX TO CULTURE (06/12/2019 10:38 AM CORK MIXER) COLOR (U) YELLOW 06/12/2019 10:54 AM [facility] TRANSPARENCY CLEAR 06/12/2019 10:54 AM [facility] SPECIFIC GRAVITY (U) 1.025 1.000 - 1.025 06/12/2019 10:54 AM [facility] U PH 7.0 5.0 - 8.0 06/12/2019 10:54 AM [facility] LEUKOCYTES (U) NEGATIVE NEGATIVE 06/12/2019 10:54 AM [facility] NITRITES NEGATIVE NEGATIVE 06/12/2019 10:54 AM [facility] PROTEIN (U) NEGATIVE NEGATIVE 06/12/2019 10:54 AM [facility] URINE GLUCOSE TRACE(A) NEGATIVE 06/12/2019 10:54 AM [facility] KETONES MG/DL (U) NEGATIVE NEGATIVE 06/12/2019 10:54 AM [facility] UROBILINOGEN 0.2 <1.0 EU/DL 06/12/2019 10:54 AM [facility] BILIRUBIN (U) NEGATIVE NEGATIVE 06/12/2019 10:54 AM [facility] BLOOD (U) TRACE(A) NEGATIVE 06/12/2019 10:54 AM [facility] WBC/HPF 0-5 0 - 5 /HPF 06/12/2019 10:54 AM [facility] EPI/HPF OCCASIONAL /LPF 06/12/2019 10:54 AM [facility] CULTURE & SENSITIVITY INDICATED? NOT INDICATED 06/12/2019 10:54 AM [facility] URINE SPECIMEN OBTAINED BY CLEAN CATCH PROCEDURE / Unknown 06/12/2019 10:38 AM CORK MIXER us Danny Blackwell MD URINE ORDERABLES Final Result Performing Organization Address City/[facility]/ZIP Co de Phone Number [facility] [address] [place] [address], [place] [phone] * MRSA SCREENING (06/12/2019 10:34 AM CORK MIXER) SPECIMEN SOURCE RESPIRATORY, NOSE 06/12/2019 10:29 AM CORK MIXER [facility] MRSA BY PCR NASAL METHICILLIN RESISTANT STAPH AUREUS NOT DETECTED 06/14/2019 11:18 AM CORK MIXER [facility] NASAL STRUCTURE / Unknown 06/12/2019 10:34 AM CORK MIXER us Danny Blackwell MD MICROBIOLOGY - GENERAL ORDERAB LES Final Result [facility] [address] [place] [address], [place] [phone] [id number] [facility] [place] [address], * (ABNORMAL) CBC W/DIFF AUTOMATED (06/12/2019 10:33 AM CORK MIXER) WBC 6.3 4.5 - 10.8 x10'3/uL 06/12/2019 10:45 AM [facility] RBC 4.54 4.50 - 6.10 x10'6/uL 06/12/2019 10:45 AM [facility] HGB 12.5(L) 13.0 - 18.0 G/DL 06/12/2019 10:45 AM [facility] HCT 39.1 37.0 - 52.0 % 06/12/2019 10:45 AM [facility] MCV 86.1 78.0 - 100.0 FL 06/12/2019 10:45 AM [facility] MCH 27.5 27.0 - 31.0 PG 06/12/2019 10:45 AM [facility] MCHC 32.0(L) 33.0 - 36.0 G/DL 06/12/2019 10:45 AM [facility] RDW 13.6 11.5 - 14.5 % 06/12/2019 10:45 AM [facility] PLT 272 150 - 350 x10'3/uL 06/12/2019 10:45 AM [facility] MPV 11.1(H) 7.4 - 10.4 FL 06/12/2019 10:45 AM [facility] DIFFERENTIAL COMMENT NORMAL REFERENCE RANGE NOT ESTABLISHED FOR THE PROPORTIONAL LEUKOCYTE DIFFERENTIAL. 06/12/2019 10:45 AM [facility] SEG NEUTROPHILS 63.4 % 0 10:45 AM [facility] LYMPHOCYTES 23.8 % 06/12/2019 10:45 AM [facility] MONOCYTES 9.8 % 06/12/2019 10:45 AM [facility] EOSINOPHILS 1.7 % 06/12/2019 10:45 AM [facility] BASOPHILS 1.1 % 06/12/2019 10:45 AM [facility] IMMATURE GRANS % 0.2 % 06/12/19 20 10:45 AM [facility] NRBC 0.0 % 06/12/2019 10:45 AM [facility] ABS. NEUTROPHILS 3.99 1.60 - 8.30 x10'3/uL 06/12/2019 10:45 AM [facility] ABS. LYMPHOCYTES 1.50 0.80 - 4.70 x10'3/uL 06/12/2019 10:45 AM [facility] ABS. MONOCYTES 0.62 0.00 - 1.50 x10'3/uL 06/12/2019 10:45 AM [facility] ABS. EOSINOPHILS 0.11 0.00 - 0.40 x10'3/uL 06/12/2019 10:45 AM [facility] ABS. BASOPHILS 0.07 0.00 - 0.20 x10'3/uL 06/12/2019 10:45 AM [facility] ABS. IMMATURE GRANULOCYTES 0.01 0.00 - 0.03 x10'3/uL 06/12/2019 10:45 AM [facility] ABS. NUCLEATED RBC'S 0.00 0.00 x10'3/uL 06/12/2019 10:45 AM [facility] 06/12/2019 10:3 3 AM [facility] us Danny Blackwell MD LABORATORY Final Result [facility] [address] [place] [address], * (ABNORMAL) BASIC METABOLIC PANEL (06/12/2019 10:33 AM CORK MIXER) SODIUM S/P/B 140 136 - 145 MMOL/L 06/12/2019 10:54 AM [facility] POTASSIUM S/P/B 4.5 3.5 - 5.1 MMOL/L 06/12/2019 10:54 AM [facility] CHLORIDE S/P/B 103 98 - 107 MMOL/L 06/12/2019 10:54 AM [facility] CO2 28.1 21.0 - 32.0 MMOL/L 06/12/2019 10:54 AM [facility] GLUCOSE 207(H) 70 - 99 MG/DL 06/12/2019 10:54 AM [facility] Comment: FASTING GLUCOSE 100 TO 125 MG/DL IS CONSISTENT WITH IMPAIRED FASTING GLUCOSE. FASTING GLUCOSE >125 MG/DL IS CONSISTENT WITH DIABETES. RANDOM GLUCOSE >200 MG/DL WITH HYPERGLYCEMIC SYMPTOMS IS CONSISTENT WITH DIABETES. PER ADA GUIDELINES BUN 13 6 - 24 MG/DL 06/12/2019 10:54 AM [facility] CREATININE S/P/B 0.83 0.70 - 1.30 MG/DL 06/12/2019 10:54 AM [facility] CALCIUM S/P/B 8.9 8.4 - 10.5 MG/DL 06/12/2019 10:54 AM [facility] ANION GAP 8.9 5.0 - 15.0 MMOL/L 06/12/2019 10:54 AM [facility] OSMOLALITY (CALC) 296 MOSM/KG 020 10:54 AM [facility] Comment:REFERENCE RANGE NOT ESTABLISHED EGFR NON-AFR. AMER. >90 >89 ML/MIN/1. 73 M2 06/12/2019 10:54 AM [facility] EGFR AFR. AMER. >90 >89 ML/MIN/1. 73 M2 06/12/2019 10:54 AM [facility] GFR NOTES GFR REFERENCE S: 06/12/2019 10:54 AM [facility] Comment: THE ESTIMATED GFR [...] <15 ml/min/1.73 m2 06/12/2019 10:3 3 AM CORK MIXER Danny Blackwell MD LABORATORY Final Result [facility] [address] [employer] [place] [address], documented in this encounter Visit Diagnoses Diagnosis Mechanical complication of internal orthopedic device, implant or graft, initial encounter ([facility])- Primary documented in this encounter Additional Health Concerns Infection Onset Date Last Indicated Resolved Time MRSA Comment:Negative MRSA 05/201903/11/2017 03/11/2017 10/03/2019 10:08 AM CDT documented as of this encounter Care Teams Heel Splitter Relationship Specialty Start Date End Date Vernon Mercedes MD [address] [place] [address] PCP - General FAMILY PRACTICE 10/27/15 12/02/21 Evaristo Allan MD [facility] [place] [address] Gary Rubber Moulding Machine Operator CARDIOVASCULAR DISEASE 08/19/16 Raul Santana MD [facility] [place] [address] CLINICAL CARDIAC ELECTROPHYSIOLOGY 06/16/17 Myah Handley, ALEXANDRE [facility] [place] [address] CARDIOVASCULAR DISEASE 06/16/17 07/10/19 Danny Blackwell MD [address] [place] [address] ORTHOPAEDIC SURGERY 05/01/19 documented as of this encounter
--- OUTSIDE RECORDS SUMMARY | 2024-04-23 04:29 | XMS_ITS | Encounter Summary ---
Author Organization [facility] Address [address] [place] [address]. [place], [place] [address] [place] [address] Care Team Providers Care Supervisor Dyer Name Role Phone Vernon Mercedes MD Primary Care Provider [phone] Stanislaw Rhodes MD Unavailable Unavailab Evaristo Ying MD Unavailable UnavailRaul Suresh MD Unavailable UnavailMyah Elena NP Unavailable Unavailable Deven Cleary MD Unavailable Unavailable Reason for Visit * Reason Onset Date Comments Refill Request 10/05/2018 Dabigatran Encounter Details Date Type Department Care Team (Late st Contact Info) Description 10/05/2018 Telephone [facility] [address] [place] [address] Raul Santana MD Refill Request (Dabigatran) Social History Tobacco Use Types Packs/Day Years [...] 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 Informed him Pt has not been seen since 01/2017; last 2 appts Pt no showed and did not respond to letters sent out. Informed him we cannot authorize refills on Pt as we have not seen him. Would be happy to see Pt at any time to re-evaluate. Jeromy nunez documented in this encounter Plan of Treatment Upcoming Encounters Date Type Department Care Team (Late st Contact Info) Description 04/25/2024 11:[address] [facility] [address] [place] [address] Ti Bonilla MD [address] [place] [phone] 05/23/2024 3:30 PM SHANK BREAKER Office Visit [facility] [address] [place] [address] Jyoti Escobar MD [address] [place] [address] [phone] documented as of this encounter Visit Diagnoses Not on filedocumented in this encounter Additional Health Concerns Infection Onset Date Last Indicated Resolved Time MRSA Comment:Negative MRSA 05/201903/11/2017 03/11/2017 10/03/2019 10:08 AM CDT documented as of this encounter Care Teams Supervisor Dyer Relationship Specialty Start Date End Date [place] [address] PCP - General FAMILY PRACTICE 10/27/15 12/02/21 [place] [address] CARDIOVASCULAR DISEASE 10/27/15 10/24/18 [place] [address] [place] Supervisor Shop CARDIOVASCULAR DISEASE 08/19/16 Raul Santana MD [address] [place] [address] CLINICAL CARDIAC ELECTROPHYSIOLOGY 06/16/17 Myah Handley NP [address] [place] [address] CARDIOVASCULAR DISEASE 06/16/17 07/10/19 Deven Cleary MD [address] [place] [address] Flexboard Operator INTERVENTIONAL CARDIOLOGY 03/21/18 10/24/18 documented as of this encounter
--- OUTSIDE RECORDS SUMMARY | 2024-04-23 04:29 | XMS_ITS | Encounter Summary ---
Author Organization [facility] Address [address] [place] [address]. [place], [place] [address] [place] [address] Care Team Providers Care Bench Jeweler Name Role Phone Vernon Mercedes MD Primary Care Provider [phone] Stanislaw Rhodes MD Unavailable Unavailab Evaristo Ying MD Unavailable UnavailRaul Suresh MD Unavailable UnavailMyah Elena NP Unavailable Unavailable Deven Cleary MD Unavailable Unavailable Reason for Visit * Reason Onset Date Comments Letter 08/30/2018 Final Letter Encounter Details Date Type Department Care Team (Late st Contact Info) Description 08/30/2018 Telephone [employer] CARDIOVASCULAR [employer] [facility] [address] [place] [address] Raul Santana MD Letter (Final Letter) Social History Tobacco Use Types Packs/Day Years [...] 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 Final letter sent to patient and PCP on file. documented in this encounter Plan of Treatment Upcoming Encounters Date Type Department Care Team (Late st Contact Info) Description 04/25/2024 11:00 AM SIX HORSE HITCH DRIVER Appointment [facility] [address] [place] [address] Ti Bonilla MD [address] [place] [phone] 05/23/2024 3:30 PM SIX HORSE HITCH DRIVER Office Visit [facility] [address] [place] [address] Jyoti Escobar MD [address] [place] [address]221 documented as of this encounter Visit Diagnoses Not on filedocumented in this encounter Additional Health Concerns Infection Onset Date Last Indicated Resolved Time MRSA Comment:Negative MRSA 05/201903/11/2017 03/11/2017 10/03/2019 10:08 AM CDT documented as of this encounter Care Teams Bench Jeweler Relationship Specialty Start Date End Date Vernon Mercedes MD [facility] [place] [address] PCP - General FAMILY PRACTICE 10/27/15 12/02/21 [place] [address] CARDIOVASCULAR DISEASE 10/27/15 10/24/18 [place] [address] [place] Freight Inspector CARDIOVASCULAR DISEASE 08/19/16 [place] [address] CLINICAL CARDIAC ELECTROPHYSIOLOGY 06/16/17 [place] [address] CARDIOVASCULAR DISEASE 06/16/17 07/10/19 Deven Cleary MD [address] [place] [address] Trench Digging Machine Operator INTERVENTIONAL CARDIOLOGY 03/21/18 10/24/18 documented as of this encounter
--- OUTSIDE RECORDS SUMMARY | 2024-04-23 04:29 | XMS_ITS | Encounter Summary ---
Author Organization [facility] Address [address] [place] [address]. [place], [place] [address] [place] [address] Care Team Providers Care Assembler And Tester Electronics Name Role Phone Vernon Mercedes MD Primary Care Provider [phone] Stanislaw Rhodes MD Unavailable Unavailab Evaristo Ying MD Unavailable UnavailRaul Suresh MD Unavailable UnavailMyah Elena NP Unavailable Unavailable Deven Cleary MD Unavailable Unavailable Reason for Visit * Reason Onset Date Comments Question 03/29/2018 Encounter Details Date Type Department Care Team (Late st Contact Info) Description 03/29/2018 Telephone [facility] [address] [address] Deven Cleary MD Question Social History Tobacco Use Types Packs/Day [...] 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 Questions if he should follow up with Dr. Cleary. Reports that he is doing well and not having any problems. Chart reviewed. Informed that we would be happy to schedule a follow up with Dr. Cleary or he may follow up with Dr. Allan. Patient indicates that he will follow up with Dr. Allan in the [facility]. Encouraged to call with any problems or if he would like to see Dr. Cleary again. Understanding verbalized. [facility] documented in this encounter Plan of Treatment Upcoming Encounters Date Type Department Care Team (Late st Contact Info) Description 04/25/2024 11:00 AM CLEANER LABORATORY EQUIPMENT Appointment [facility] [address] [place] [address] Ti Bonilla MD [address] [place] [phone] 05/23/2024 3:30 PM CLEANER LABORATORY EQUIPMENT Office Visit [facility] [address] [place] [address] Jyoti Escobar MD [address] [place] [address] [phone] documented as of this encounter Visit Diagnoses Not on filedocumented in this encounter Additional Health Concerns Infection Onset Date Last Indicated Resolved Time MRSA Comment:Negative MRSA 05/201903/11/2017 03/11/2017 10/03/2019 10:08 AM CDT documented as of this encounter Care Teams Assembler And Tester Electronics Relationship Specialty Start Date End Date Vernon Mercedes MD [address] [place] [address] PCP - General FAMILY PRACTICE 10/27/15 12/02/21 Stanislaw Rhodes MD [address] [place] [address] CARDIOVASCULAR DISEASE 10/27/15 10/24/18 [place] [address] [place] [employer] Manager CARDIOVASCULAR DISEASE 08/19/16 Raul Santana MD [address] [place] [address] CLINICAL CARDIAC ELECTROPHYSIOLOGY 06/16/17 Myah Handley NP [address] [place] [address] CARDIOVASCULAR DISEASE 06/16/17 07/10/19 Deven Cleary MD [address] [place] [address] Stretcher Drier Operator INTERVENTIONAL CARDIOLOGY 03/21/18 10/24/18 documented as of this encounter
--- OUTSIDE RECORDS SUMMARY | 2024-04-23 04:29 | XMS_ITS | Encounter Summary ---
Author Organization [facility] Address [address] [place] [address]. [place], [place] [address] [place] [address] Care Team Providers Care Digital Cartographer Name Role Phone Vernon Delgado MD Primary Care Provider [phone] Evaristo Allan MD Unavailable UnavailRaul Suresh MD Unavailable UnavailMyah Elena NP Unavailable Unavailable Danny Blackwell MD Unavailable [phone] Reason for Visit * Reason Comments Follow Up Encounter Details Date Type Department Care Team (Late st Contact Info) Description 02/22/2019 12:30 PM VESSEL ENGINEER Office Visit [facility] [place] [address] Evaristo Allan MD Follow Up Social History [...] 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 Not on file documented as of this encounter Last Filed Vital Signs Vital Sign Reading Time Taken Comments Blood Pressure 109/72 02/23/2019 10:39 AM VESSEL ENGINEER Pulse 98 02/23/2019 10:39 AM VESSEL ENGINEER Temperature - - Respiratory Rate 16 02/23/2019 10:39 AM VESSEL ENGINEER Oxygen Saturation 97% 02/23/2019 10:39 AM VESSEL ENGINEER Inhaled Oxygen Concentration - - Weight 124.7 kg (275 lb) 02/23/2019 10:39 AM VESSEL ENGINEER Height 175.3 cm (5' 9 ) 02/23/2019 10:39 AM VESSEL ENGINEER Body Mass Index 40.61 02/23/2019 10:39 AM VESSEL ENGINEER documented in this encounter Patient Instructions * Patient Instructions* Kaylin Wetzel RN - 02/22/2019 12:30 PM VESSEL ENGINEER 1. D/C Brilinta in 1 month and restart ASA 81 2. RTC in 1 year EL ENGINEER documented in this encounter Progress Notes * Evaristo Allan MD - 02/22/2019 12:30 PM CST Reason for Visit: Follow Up History of [...] MM Misc, , Disp: , Rfl: ??? ranitidine 150 MG tablet, Take 150 [...] CATHETERIZATION 01/04/2018 occluded prox RCA w/well developed ierf-xe-ooclx collaterals lvef 55-60% ??? FRACTURE SURGERY ??? HERNIA REPAIR ??? KNEE ARTHROPLASTY ??? LITHOTRIPSY ??? XA ABLATION 05/19/2016 ??? XA CORONARY INTERVENTION 03/24/[address] Cleary Social History Tobacco Use ??? Smoking status: Never Smoker ??? Smokeless tobacco: Never Used Substance Use Topics ??? Alcohol use: Yes ??? Drug use: No Family History Family history unknown: Yes Family [...] depression and new or significant memory loss. All other systems reviewed and are negative. Filed Vitals: 02/23/19 1039 BP: 109/72 Pulse: 98 Resp: 16 SpO2: 97% Weight: 124.7 kg (275 lb) Height: 5' 9 (1.753 m) Body mass index is 40.61 kg/m??. Physical Exam Rate/Rhythm: regular rhythm and normal rate . Heart Sounds: normal heart sounds, normal S1 and normal S2 no gallop, no S3 sound, no S4 sound and no murmur. . PMI: PMI not displaced. Pulses: normal pulses Right Carotid pulses 2+, Left Carotid pulses 2+, Right Femoral pulses 2+, Left Femoral pulses 2+, Right DP pulses 2+, Left DP pulses 2+, negative for edema Constitutional: healthy appearance Overweight not distressed. . Neck: neck supple no [...] no clubbing. Musculoskeletal: no kyphosis Cardiovascular Comments: The documentation for the above exam was created using a template entered by ancillary staff however the physical exam was completed entirely by the provider responsible for this visit. The physical exam documentation was reviewed and modified by the provider to reflect his/her findings. Diagnoses/Impression: No diagnosis found. Referring Provider: No ref. provider found PCP: VERNON DELGADO MD EL ENGINEER * Evaristo Allan MD - 02/22/2019 12:00 AM CST HISTORY OF PRESENT ILLNESS: Mr. Zelaya is seen in the cardiology clinic today for a scheduled followup visit. He reports that he is doing well from a cardiac standpoint. Mr. Zelaya still complains of some dyspnea on exertion but is able to walk 1 mile without limitations. He denies any anginal chest pain or overt symptoms of congestive heart failure, such as paroxysmal nocturnal dyspnea or orthopnea, although he has been using a CPAP machine for some 3 years. He does describe some pedal edema which seems to occur in the evening hours. He denies any palpitations orsyncope but does have rare lightheadedness. Mr. Zelaya relates that he quit his job due to the ongoing stress and his overall health has improved. He does describe some leg discomfort with ambulation but this seems most consistent with bilateral knee arthritis. He denies any recent episodes to suggest TIA or CVA. He is tolerating his present medications well. A review of the available records show that a cardiac catheterization performed in October of this year showed a widely patent stent in the proximal right coronary artery as well as a patent stent in the mid right coronary artery. No significant stenosis was identified. Left ventriculography was not performed. RECOMMENDATIONS AND PLAN: Mr. Zelaya' cardiac status appears clinically stable at the present time without ongoing anginal chest pain, overt symptoms of congestive heart failure, or clinical evidence of hemodynamically significant arrhythmias. Continued medical therapy and aggressive cardiac risk factor modification seem most appropriate at the present time. I have recommended the following to Mr. Zelaya: 1. Continue present medical regimen at this time. I have instructed him to discontinue his Brilintaantiplatelet therapy in 1 month. At that time, low-dose Aspirin antiplatelet therapy at 81 mg p.o. daily will be instituted. 2. Annual followup in the cardiology clinic. ADDENDUM: Mr. Zelaya has informed me that he would like to proceed with a knee replacement under thedirection of Dr. Blackwell. I believe that Mr. Zelaya' cardiovascular risk of the proposed knee surgery would be mildly increased in light of his known coronary artery disease, paroxysmal atrial fibrillation, and known obstructive sleep apnea. This mildly increased cardiovascular risk would seem acceptable in light of the overall clinical situation. At the time of surgery, I would recommend the followin. Discontinue Dabigatran anticoagulation 3 days prior to surgery. 2. Perioperative telemetry monitoring. 3. Perioperative maintenance of beta blockade and statin therapy. 4. Maintenance of a serum hemoglobin of 8.0 or greater. EL ENGINEER documented in this encounter Plan of Treatment Upcoming Encounters Date Type Department Care Team (Late st Contact Info) Description 04/25/2024 11:00 AM VESSEL ENGINEER Appointment [facility] [address] [place] [id number] Ti Bonilla MD [address] [place] [phone] 05/23/2024 3:30 PM VESSEL ENGINEER Office Visit [facility] [address] [place] [phone] Jyoti Escobar MD [address] [place] [phone] documented as of this encounter Visit Diagnoses Diagnosis Coronary artery disease of [place] artery of [place] heart with stable angina pectoris ([facility])- Primary S/P coronary artery stent placement Postsurgical percutaneous transluminal coronary angioplasty status Preop cardiovascular exam Pre-operative cardiovascular examination Paroxysmal atrial fibrillation ([facility]) Atrial fibrillation Essential hypertension Unspecified essential hypertension Hyperlipidemia, unspecified hyperlipidemia type Obstructive sleep apnea Obstructive sleep apnea (adult) (pediatric) documented in this encounter Additional Health Concerns Infection Onset Date Last Indicated Resolved Time MRSA Comment:Negative MRSA 05/201903/11/2017 03/11/2017 10/03/2019 10:08 AM CDT documented as of this encounter Care Teams Digital Cartographer Relationship Specialty Start Date End Date Vernon Delgado MD [address] [place] [id number] PCP - General FAMILY PRACTICE 10/27/15 12/02/21 Evaristo Allan MD [address] [place] [id number] Model Progress Worker CARDIOVASCULAR DISEASE 08/19/16 Raul Santana MD [address] [place] [phone] CLINICAL CARDIAC ELECTROPHYSIOLOGY 06/16/17 Myah Handley NP [address] [place] [id number] CARDIOVASCULAR DISEASE 06/16/17 07/10/19 Danny Blackwell MD [address] [place] [address] ORTHOPAEDIC SURGERY 05/01/19 documented as of this encounter
--- OUTSIDE RECORDS SUMMARY | 2024-04-23 04:29 | XMS_ITS | Encounter Summary ---
Author Organization [facility] Address [address] [place] [address]. [place] [address] [place] [address] Care Team Providers Care Regional Psychiatric Director Name Role Phone Vernon Mercedes MD Primary Care Provider [phone] Stanislaw Rhodes MD Unavailable Unavailab Elza Ying MD Unavailable UnavailEve Suresh MD Unavailable UnavailMyah Elena NP Unavailable Unavailable Deven Cleary MD Unavailable Unavailable Encounter Details Date Type Department Care Team (Late st Contact Info) Description 10/17/2018 Orders Only [facility] [address] [place] [address] Eve Carrera MD Social History Tobacco Use Types Packs/Day [...] 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 [address] [place] [address] Ti Bonilla MD [address] [place] [phone] 05/23/2024 3:[address] Office Visit [facility] [place] [address] Jyoti Escobar MD [address] [place] [address] documented as of this encounter Procedures Procedure Name Priority Date/Time Associated Diagnosis Comments ELECTROCARDIOGRAM (NON MIDMARK ACQUIRED) Routine 10/17/2018 9:20 AM CDT Paroxysmal atrial fibrillation (CMS/HCC HHS/HCC) [facility] current use of anticoagulant therapy documented in this encounter Results * ELECTROCARDIOGRAM (10/17/2018 9:20 AM CDT) 10/17/2018 9:20 AM CDT Narrative [facility] - 10/17/2018 10:21 AM CDT ? [facility] ?[address] [place], [place] ??[address] ? Test Date: ?2018-10-17 Pat Name: ? ELZA MCKEON ? Department: ? Room: ? Gender: ? Male ? Custodial Supervisor: ?? sk : ?1960 ? Requested By: EVE CARRERA Order Number: [id number] ?Reading : ?? Eve Carrera ? Measurements Intervals ?Connell ? Rate: ? 75 ? P: ?43 HI: ? 107 ?QRS: ?37 QRSD: ? 110 ?T: ?30 QT: ? 402 ? QTc: ?451 ? Interpretive Statements SINUS RHYTHM WITH SHORT HI INTERVAL WITH OCCASIONAL SUPRAVENTRICULAR PREMATURE COMPLEXES INCOMPLETE RIGHT BUNDLE BRANCH BLOCK Procedure Note Eve Carrera MD - 10/17/2018 [facility] [place] [address] Test Date: 2018-10-17 Pat Name: [facility] Department: Room: Gender: Male Custodial Supervisor: main : 1960 Requested By: EVE CARRERA Order Number: [id number] Reading MD: Eve Carrera Measurements Intervals Connell Rate: 75 P: 43 HI: 107 QRS: 37 QRSD: 110 T: 30 QT: 402 QTc: 451 Interpretive Statements SINUS RHYTHM WITH SHORT HI INTERVAL WITH OCCASIONAL SUPRAVENTRICULAR PREMATURE COMPLEXES INCOMPLETE RIGHT BUNDLE BRANCH BLOCK Eve Carrera MD PROCEDURES-ORDERABLE NO LENO RGE Final Result [facility] [address] [place] [address] documented in this encounter Visit Diagnoses Diagnosis Paroxysmal atrial fibrillation (CMS/HCC HHS/HCC)- Primary Atrial fibrillation [facility] current use of anticoagulant therapy documented in this encounter Additional Health Concerns Infection Onset Date Last Indicated Resolved Time MRSA Comment:Negative MRSA 05/201903/11/2017 03/11/2017 10/03/2019 10:08 AM CDT documented as of this encounter Care Teams Regional Psychiatric Director Relationship Specialty Start Date End [place] [address] PCP - General FAMILY PRACTICE 10/27/15 12/02/21 Stanis[place] [phone] CARDIOVASCULAR DISEASE 10/27/15 10/24/18 Elza [place] [phone] [place] Sewer Pipe Cleaner CARDIOVASCULAR DISEASE 08/19/16 [place] [phone] CLINICAL CARDIAC ELECTROPHYSIOLOGY 06/16/17 [place] [place] [phone] CARDIOVASCULAR DISEASE 06/16/17 07/10/19 Dev[place] [phone] Fuel Oil Clerk INTERVENTIONAL CARDIOLOGY 03/21/18 10/24/18 documented as of this encounter
--- OUTSIDE RECORDS SUMMARY | 2024-04-23 04:29 | XMS_ITS | Encounter Summary ---
Author Organization [facility] Address [address] [place] [address]. [place], [place] [address] [place] [address] Care Team Providers Care Manager Data Warehouse Name Role Phone Vernon Mercedes MD Primary Care Provider [phone] Evaristo Allan MD Unavailable UnavailRaul Suresh MD Unavailable Unavailabl Myah Gee NP Unavailable Unavailable Danny Blackwell MD Unavailable [phone] Reason for Visit * Reason Comments Pre-Op Exam RIGHT TKA Encounter Details Date Type Department Care Team (Latest Contact Info) Description 05/29/2019 8:30 AM RELATIONS SPECIALIST Office Visit [facility] [address] [address] Danny Blackwell MD [address] [place] [address] Pre-Op Exam (RIGHT TKA) Social History Tobacco Use Types Packs/Day Years [...] 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 Not on file Not on file documented as of this encounter Last Filed Vital Signs Vital Sign Reading Time Taken Comments Blood Pressure - - Pulse - - Temperature - - Respiratory Rate - - Oxygen Saturation - - Inhaled Oxygen Concentration - - Weight 113.4 kg (250 lb) 05/29/2019 8:26 AM RELATIONS SPECIALIST Height 177.8 cm (5' 10 ) 05/29/2019 8:26 AM RELATIONS SPECIALIST Body Mass Index 35.87 05/29/2019 8:26 AM RELATIONS SPECIALIST documented in this encounter Progress Notes * Danny Blackwell MD - 05/29/2019 8:30 AM CST Chief Complaint: Pre-Op Exam (RIGHT TKA) History of Present Illness: Evaristo Zelaya is a 59-year-old male who presents to the office for Pre-Op Exam (RIGHT TKA) Patient returns to clinic wanting to schedule his RIGHT TKA. He states that he has been closely monitoring his blood sugars and diet. He has a log of blood sugar for the last month. Patient states that he is feeling better. He reports pain to the entire RIGHT knee. Patient has a history of RIGHT TKA and is wanting a revision to his RIGHT TKA. Denies any recent injury, physical [...] ??? Essential hypertension ??? Paroxysmal atrial fibrillation ([facility]/HCC) ??? shelter current use of anticoagulant therapy ??? Obstructive sleep apnea ??? Hyperlipidemia ??? Diabetes ([facility]/HCC) ??? Coronary artery disease of [place] artery of [place] heart with stable angina pectoris ([facility]) ??? 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 Cardiovascular stress test abnormal ??? Arthritis of knee ??? Derangement of medial meniscus, left ??? Encounter for follow-up examination after completed treatment for conditions other than malignant neoplasm ??? Heartburn ??? Knee pain ??? Mechanical complication of internal orthopedic device, implant or graft, initial encounter ([facility]) ??? Patella-femoral syndrome ??? Pes anserine bursitis ??? Recurrent ventral incisional hernia ??? Abdominal pain ??? Failure of total knee replacement, initial encounter ([facility]) ??? S/P coronary artery stent placement [...] CATHETERIZATION 01/04/2018 occluded prox RCA w/well developed djhe-pl-ytdqr collaterals lvef 55-60% ??? FRACTURE SURGERY ??? HERNIA REPAIR ??? KNEE ARTHROPLASTY ??? LITHOTRIPSY ??? XA ABLATION 05/19/2016 ??? XA CORONARY INTERVENTION 03/24/[address] Cleary Family History Family history unknown: [...] Blisters in the mouth Objective: Filed Vitals: 05/29/19 0826 Weight: 113.4 kg (250 lb) Height: 5' [...] injuries or skin lesions. Musculoskeletal: Patient has pain mainly on the medial aspect of the knee with a small effusion. Nowarmth or erythema is appreciated. He does report decreased sensation in both feet consistent with neuropathy but distal pulses are palpable. Knee range of motion is 0 to about 100 degrees and he is ligamentously stable. No hip pain is present Results: Review of x-rays demonstrates that his right total knee arthroplasty remains well aligned but thereare subtle signs of loosening Assessment: Encounter Diagnose(s) ICD-10-CM ICD-9-CM SNOMED CT(R) 1. Mechanical complication of internal orthopedic device, implant or graft, initial encounter ([facility]) T84.498A 996.40 MECHANICAL COMPLICATION OF INTERNAL ORTHOPEDIC DEVICE, IMPLANT AND/OR GRAFT Plan: Patient's right knee replacement was performed at least 20 years ago and patient has had good relief up until the last year or so. He reports start up pain and subtle signs of loosening are appreciated on x-ray. He has had an aspiration which demonstrated no signs of infection. I recommended proceeding with revision right total knee arthroplasty and I reviewed risks and benefits. Patient will need to stop his Pradaxa 3 days before surgery and Dr. Allan has cleared him to proceed. His hemoglobin A1c has been a problem and but he has been working hard at maintaining his blood sugars and we will recheck his A1c prior to surgery and as long as that is okay we will plan to proceed Patient Education: The planned procedure/s, the expected benefits,the associated risks, possible complications, and alternatives to the procedure/s have been discussed in detail with the patient or family. They state that they understand, have no further questions and agree to proceed with the procedure/s as outlined. Procedure/Surgery: 06/18/2019 Revision RIGHT Total Knee Arthroplasty Follow up: Return for Post-Op. DANNY BLACKWELL MD TIONS SPECIALIST TIONS SPECIALIST documented in this encounter Plan of Treatment Upcoming Encounters Date Type Department Care Team (Late st Contact Info) Description 04/25/2024 11:00 AM RELATIONS SPECIALIST Appointment [facility] [place] [address] Ti Bonilla MD [address] [place] [phone] 05/23/2024 3:30 PM RELATIONS SPECIALIST Office Visit [facility] [address] [place] [phone] Jyoti Escobar MD [address] [place] [phone] documented as of this encounter Visit Diagnoses Diagnosis Mechanical complication of internal orthopedic device, implant or graft, initial encounter ([facility])- Primary documented in this encounter Additional Health Concerns Infection Onset Date Last Indicated Resolved Time MRSA Comment:Negative MRSA 05/201903/11/2017 03/11/2017 10/03/2019 10:08 AM CDT documented as of this encounter Care Teams Manager Data Warehouse Relationship Specialty Start Date End Date Vernon Mercedes MD [address] [place] [address] PCP - General FAMILY PRACTICE 10/27/15 12/02/21 Evaristo Allan MD [facility] [place] [address] [employer] Manager CARDIOVASCULAR DISEASE 08/19/16 Raul Santana MD [facility] [place] [address] CLINICAL CARDIAC ELECTROPHYSIOLOGY 06/16/17 Myah Handley NP [facility] [place] [address] CARDIOVASCULAR DISEASE 06/16/17 07/10/19 Danny Blackwell MD [address] [facility] [place] [address] ORTHOPAEDIC SURGERY 05/01/19 documented as of this encounter
--- OUTSIDE RECORDS SUMMARY | 2024-04-23 04:29 | XMS_ITS | Encounter Summary ---
Author Organization [facility] Address [address] [place] [address]. [place], [place] [id number] [place] [address] Care Team Providers Care Cans Vacuum Tester Name Role Phone Vernon Mercedes MD Primary Care Provider [phone] Evaristo Allan MD Unavailable UnavailRaul Suresh MD Unavailable Unavailabl Myah Gee NP Unavailable Unavailable Reason for Visit * Reason Onset Date Comments Schedule Procedure 11/06/2018 Encounter Details Date Type Department Care Team (Late st Contact Info) Description 11/06/2018 Telephone [facility] [address] [place] [address] Evaristo Allan MD Schedule Procedure Social History Tobacco Use Types [...] 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 He will take last dose of Pradaxa on Thurs PM, none fri,sat or Sun. cont ASA & Brilinta. No diabetic medication the AM of the procedure Risks & benefits discussed. Questions and concerns addressed. Instructions given and letter sent, he verbalizes understanding. Scheduled 7.29 at 1000, arrive at 0800, labs at [place] documented in this encounter Plan of Treatment Upcoming Encounters Date Type Department Care Team (Late st Contact Info) Description 04/25/2024 11:00 AM COBOL ENGINEER Appointment [facility] [address] [place] [address] Ti Bonilla MD [address] [place] [phone] 05/23/2024 3:30 PM COBOL ENGINEER Office Visit [facility] [address] [place] [address] Jyoti Escobar MD [address] [place] [phone] documented as of this encounter Visit Diagnoses Not on filedocumented in this encounter Additional Health Concerns Infection Onset Date Last Indicated Resolved Time MRSA Comment:Negative MRSA 05/201903/11/2017 03/11/2017 10/03/2019 10:08 AM CDT documented as of this encounter Care Teams Cans Vacuum Tester Relationship Specialty Start Date End Date [place] [address] PCP - General FAMILY PRACTICE 10/27/15 12/02/21 [place] [address] [employer] Manager CARDIOVASCULAR DISEASE 08/19/16 [place] [address] CLINICAL CARDIAC ELECTROPHYSIOLOGY 06/16/17 Myah Handley [place] [address] CARDIOVASCULAR DISEASE 06/16/17 07/10/19 documented as of this encounter
--- OUTSIDE RECORDS SUMMARY | 2024-04-23 04:29 | XMS_ITS | Encounter Summary ---
Author Organization [facility] Address [address] [place] [address]. [place], [place] [address] [place] [address] Care Team Providers Care Filter Changer Name Role Phone Vernon Mercedes MD Primary Care Provider [phone] Stanislaw Rhodes MD Unavailable Unavailab Evaristo Ying MD Unavailable Unavailabl Raul Duran MD Unavailable Unavailabl Myah Gee NP Unavailable Unavailable Deven Cleary MD Unavailable Unavailable Danny Blackwell MD Unavailable [phone] Gayle Arce GINNER, DIRECTOR PARK-C Unavailable [phone] Ti Bonilla MD Primary Care Provider [phone] Mendel Shah DPM Unavailable [phone] Jyoti Escobar MD Unavailable [phone] Encounter Details Date Type Department Care Team (Late st Contact Info) Description 09/23/2018 Abstract [facility] CONVERSION [address] [place] [place] [id number] , Generic Conversion, Social History Tobacco Use Types Packs/Day Years [...] 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 Not on file Not on file documented as of this encounter Plan of Treatment Upcoming Encounters Date Type Department Care Team (Late st Contact Info) Description 04/25/2024 11:00 AM CAR REPAIR SUPERVISOR Appointment [facility] [address] [place] [address] Ti Bonilla MD [address] [place] [phone] 05/23/2024 3:30 PM CAR REPAIR SUPERVISOR Office Visit [facility] [address] [place] [phone] Jyoti Escobar MD [address] [place] [address] documented as of this encounter Visit Diagnoses Not on filedocumented in this encounter Additional Health Concerns Infection Onset Date Last Indicated Resolved Time MRSA Comment:Negative MRSA 05/201903/11/2017 03/11/2017 10/03/2019 10:08 AM CDT COVID-19 Rule Out 10/12/2019 10/12/2019 10/13/2019 9:43 PM CDT COVID-19 Rule Out 04/16/2021 04/16/2021 04/16/2021 12:50 PM CAR REPAIR SUPERVISOR COVID-19 Confirmed 04/16/2021 04/16/2021 12:32 AM CAR REPAIR SUPERVISOR COVID-19 Rule Out 05/23/2021 05/23/2021 05/25/2021 3:02 PM CAR REPAIR SUPERVISOR COVID-19 Rule Out 05/25/2021 05/25/2021 05/26/2021 3:50 AM CAR REPAIR SUPERVISOR COVID-19 Rule Out 08/31/2021 08/31/2021 09/01/2021 8:03 PM CDT COVID-19 Rule Out 11/14/2021 11/14/2021 11/14/2021 6:17 PM CDT documented as of this encounter Care Teams Filter Changer Relationship Specialty Start Date End Date Vernon Mercedes MD [address] [place] [phone] PCP - General FAMILY PRACTICE 10/27/15 12/02/21 Ti Bonilla MD [address] [place] [address] PCP - General FAMILY PRACTICE 12/03/21 Stanislaw Rhodes MD [address] [place] [address] CARDIOVASCULAR DISEASE 10/27/15 10/24/18 Evaristo Allan MD [address] [place] [address] [place] Catalogue Librarian CARDIOVASCULAR DISEASE 08/19/16 Raul Santana MD [facility] [place] [address] CLINICAL CARDIAC ELECTROPHYSIOLOGY 06/16/17 Myah Handley NP [address] [place] [address] CARDIOVASCULAR DISEASE 06/16/17 07/10/19 Deven Cleary MD [address] [place] [address] Tester Armature Or Fields INTERVENTIONAL CARDIOLOGY 03/21/18 10/24/18 Danny Blackwell MD [address] [place] [address] ORTHOPAEDIC SURGERY 05/01/19 Gayle Arce APRN, DIRECTOR PARK-C [address] [place] [address] [address] [place] [phone] NURSE PRACTITIONER 03/03/20 Mendel Shah DPM [address] [facility] [place] [address] Consulting Physician PODIATRY/SURGERY 06/27/23 06/26/24 Jyoti Escobar MD [address] [place] [address] INTERVENTIONAL CARDIOLOGY 12/27/23 documented as of this encounter
--- OUTSIDE RECORDS SUMMARY | 2024-04-23 04:30 | XMS_ITS | Encounter Summary ---
Author Organization [facility] Address [address] [place] [address]. [place] [address] [place] [address] Care Team Providers Care Supervisor Insulation Name Role Phone Vernon Mercedes MD Primary Care Provider [phone] Stanislaw Rhodes MD Unavailable Unavailab Evaristo Ying MD Unavailable Unavailabl Raul Duran MD Unavailable Unavailabl Myah Gee NP Unavailable Unavailable Encounter Details Date Type Department Care Team (Late Contact Info) Description 12/29/2017 Orders Only [facility] [address] [place] [address] Marcelle Madden RN Social History [...] (Late Contact Info) Description 04/25/2024 11:[address] [facility] [address] [facility] [place] [address] Ti Bonilla MD [address] [place] [phone] 05/23/2024 3:30 PM COOK FRUIT [facility] [address] [place] [address] Jyoti Escobar MD [address] [place] [address] documented as of this encounter Visit Diagnoses Not on filedocumented in this encounter Additional Health Concerns Infection Onset Date Last Indicated Resolved Time MRSA Comment:Negative MRSA 05/201903/11/2017 03/11/2017 10/03/2019 10:08 AM CDT documented as of this encounter Care Teams Supervisor Insulation Relationship Specialty Start Date End Date Vernon Mercedes MD [facility] [place] [address] PCP - General FAMILY PRACTICE 10/27/15 12/02/21 [place] [address] CARDIOVASCULAR DISEASE 10/27/15 10/24/18 [place] [address] [place] Clam Treader CARDIOVASCULAR DISEASE 08/19/16 [place] [address] CLINICAL CARDIAC ELECTROPHYSIOLOGY 06/16/17 [place] [address] CARDIOVASCULAR DISEASE 06/16/17 07/10/19 documented as of this encounter
--- OUTSIDE RECORDS SUMMARY | 2024-04-23 04:30 | XMS_ITS | Encounter Summary ---
Author Organization [facility] Address [address] [place] [address]. [place], [place] [id number] [place] [address] Care Team Providers Care Bottle House Pumper Name Role Phone Vernon Mercedes MD Primary Care Provider [phone] Stanislaw Rhodes MD Unavailable Unavailab Evaristo Ying MD Unavailable UnavailRaul Suresh MD Unavailable UnavailMyah Elena NP Unavailable Unavailable Deven Cleary MD Unavailable Unavailable Danny Blackwell MD Unavailable [phone] Gayle Arce GLASS DEPOSITION TENDER, RAZOR GRINDER-C Unavailable [phone] Ti Bonilla MD Primary Care Provider [phone] Mendel Shah DPM Unavailable [phone] Jyoti Escobar MD Unavailable [phone] Encounter Details Date Type Department Care Team (Late st Contact Info) Description 2018 Abstract [facility] [address] [place] [phone] Evaristo Allan MD Social History Tobacco Use [...] 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 [address] [place] [address] [place] [address] Ti Bonilla MD [address] [place] [phone] 05/23/2024 3:30 PM BOXING PROMOTER Office Visit [facility] [address] [facility] [place] [address] Jyoti Escobar MD [address] [place] [address] [phone] documented as of this encounter Procedures Procedure Name Priority Date/Time Associated Diagnosis Comments MAGNESIUM (OUTSIDE LAB) Routine 2018 CBC (OUTSIDE LAB) Routine 2018 PROTHROMBIN TIME, VENOUS Routine 2018 BASIC METABOLIC PANEL Routine 2018 documented in this encounter Results * PROTIME/INR, VENOUS (2018) PROTIME WHOLE BLOOD 11.0 INR WHOLE BLOOD 1.04 2018 [facility] LABORATORY Final Result * MAGNESIUM (OUTSIDE LAB) (2018) MAGNESIUM 1.4 2018 [facility] Abstract LAB-OUTSIDE/ABSTRACTED Final Result * CBC (OUTSIDE LAB) (2018) WBC 6.7 HGB 13.4 HCT 40.1 PLT 220 RBC 4.6 2018 [facility] Abstract LAB-OUTSIDE/ABSTRACTED Final Result * BASIC METABOLIC PANEL (2018) SODIUM S/P/B 139 POTASSIUM S/P/B 4.1 CO2 30 CHLORIDE S/P/B 100 GLUCOSE 361 mg/dL CALCIUM S/P/B 8.9 BUN 12 CREATININE S/P/B 0.87 0.7 - 1.3 2018 [facility] Abstract LABORATORY Final Result documented in this encounter Visit Diagnoses Not on filedocumented in this encounter Additional Health Concerns Infection Onset Date Last Indicated Resolved Time MRSA Comment:Negative MRSA 05/201903/11/2017 03/11/2017 10/03/2019 10:08 AM CDT COVID-19 Rule Out 10/12/2019 10/12/2019 10/13/2019 9:43 PM CDT COVID-19 Rule Out 04/16/2021 04/16/2021 04/16/2021 12:50 PM BOXING PROMOTER COVID-19 Confirmed 04/16/2021 04/16/2021 12:32 AM BOXING PROMOTER COVID-19 Rule Out 05/23/2021 05/23/2021 05/25/2021 3:02 PM BOXING PROMOTER COVID-19 Rule Out 05/25/2021 05/25/2021 05/26/2021 3:50 AM BOXING PROMOTER COVID-19 Rule Out 08/31/2021 08/31/2021 09/01/2021 8:03 PM CDT COVID-19 Rule Out 11/14/2021 11/14/2021 11/14/2021 6:17 PM CDT documented as of this encounter Care Teams Bottle House Pumper Relationship Specialty Start Date End Date Vernon Mercedes MD [address] [facility] [phone] PCP - General FAMILY PRACTICE 10/27/15 12/02/21 Ti Bonilla MD [address] [place] [address] PCP - General FAMILY PRACTICE 12/03/21 Stanislaw Rhodes MD [address] [place] [address] CARDIOVASCULAR DISEASE 10/27/15 10/24/18 Evaristo Allan MD [facility] [place] [address] [place] Director Of Academic Support CARDIOVASCULAR DISEASE 08/19/16 Raul Santana MD [facility] [place] [address] CLINICAL CARDIAC ELECTROPHYSIOLOGY 06/16/17 Myah Handley NP [facility] [address] CARDIOVASCULAR DISEASE 06/16/17 07/10/19 Deven Cleary MD [facility] [place] [address] Form Press Operator INTERVENTIONAL CARDIOLOGY 03/21/18 10/24/18 Danny Blackwell MD [address] [place] [address] ORTHOPAEDIC SURGERY 05/01/19 Gayle Arce APRN, RAZOR GRINDER-C [address] [place] [address] [address] [place] [phone] NURSE PRACTITIONER 03/03/20 Mendel Shah DPM [address] [facility] [place] [address] Consulting Physician PODIATRY/SURGERY 06/27/23 06/26/24 Jyoti Escobar MD [address] [place] [address] INTERVENTIONAL CARDIOLOGY 12/27/23 documented as of this encounter
--- OUTSIDE RECORDS SUMMARY | 2024-04-23 04:30 | XMS_ITS | Encounter Summary ---
Author Organization [facility] Address [address] [place] [address]. [place], [place] [address] [place] [address] Care Team Providers Care Licensed Chemical Spray Technician Name Role Phone Ton Delgado MD Primary Care Provider [phone] Stanislaw Rhodes MD Unavailable Unavailab Elza Ying MD Unavailable UnavailRaul Suresh MD Unavailable Unavailabl Myah Gee NP Unavailable Unavailable Reason for Visit * Reason Comments Consult Chest Pain Encounter Details Date Type Department Care Team (Latest Contact Info) Description 12/15/2017 10:30 AM CDT Office Visit [facility] [place] [address] Elza Allan MD Consult; Chest Pain Social History Tobacco Use Types [...] 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 Not on file Not on file documented as of this encounter Last Filed Vital Signs Vital Sign Reading Time Taken Comments Blood Pressure 128/84 12/16/2017 9:01 AM CDT Pulse - - Temperature - - Respiratory Rate 18 12/16/2017 9:01 AM CDT Oxygen Saturation 98% 12/16/2017 9:01 AM CDT Inhaled Oxygen Concentration - - Weight 127.9 kg (282 lb) 12/16/2017 9:01 AM CDT Height 177.8 cm (5' 10 ) 12/16/2017 9:01 AM CDT Body Mass Index 40.46 12/16/2017 9:01 AM CDT documented in this encounter Patient Instructions * Patient Instructions* Marcelle Madden, RN - 12/16/2017 9:10 AM CDT Images from the original note were not included. 1. ANST 2. Cont same meds 3. RTC in 1 yr Patient Education Atrial Fibrillation The Basics Written by the doctors and editors at [facility] What is atrial fibrillation???--??Atrial fibrillation is the most common heart rhythm problem (figure 1). The condition puts you at risk of stroke, heart attack, and other problems. Another term for atrial fibrillation is A-fib. In people with A-fib, the electrical signals that control the heartbeat are abnormal. As a result, the top 2 chambers of the heart stop pumping effectively, and a small amount of the blood that should move out of these chambers gets left behind. As the blood pools, it can start to form clots. Theseclots can travel to the brain through the blood vessels, and cause strokes. In some people, A-fib never goes away. In others, A-fib can come and go, even with treatment. If you had one or more bouts of A-fib, but have a normal heart rhythm now, ask your doctor what you can do to keep A-fib from coming back. Some people can reduce their chances of having A-fib again by: ?Controlling their blood pressure ?Not drinking a lot of alcohol in one sitting (limit to 1 to 2 drinks in one day) ?Cutting down on caffeine ?Getting treatment for an overactive thyroid gland ?Getting regular exercise ?Losing weight (if they are overweight) What are the symptoms of atrial fibrillation???--??Some people with A-fib have no symptoms. When symptoms do occur, they can include: ?Feeling as though your heart is racing, skipping beats, or beating out of sync ?Mild chest tightness or pain ?Feeling lightheaded, dizzy, or like you might pass out ?Having trouble breathing, especially with exercise Is there a test for atrial fibrillation???--??Yes. If your doctor or nurse suspects you have A-fib,he or she will probably do a test called an electrocardiogram. This test, also known as an ECG or EKG, measures the electrical activity in your heart. How is atrial fibrillation treated???--??In some cases, A-fib goes away on its own, even without treatment. But some people do need treatment. Treatment can include one or more of these: ?Medicines to control the speed or rhythm of the heartbeat ?Medicines to keep clots from forming ?A treatment called cardioversion that involves applying a mild electrical current to the heart to fix its rhythm ?Treatments called ablation, which use heat ( radiofrequency ablation ) or cold ( cryoablation ) to destroy the small part of the heart that is sending abnormal electrical signals ?A device called a pacemaker that is implanted in your body and sends electrical signals to the heart to control the heartbeat What will my life be like???--??Many people with A-fib are able to live normal lives. Still, it is important that you take the medicines your doctor prescribes every day. Taking your medicines as directed can help reduce the chances that your A-fib will cause a stroke. It's also a good idea to learn what the signs and symptoms of a stroke are (figure 2). All topics are updated as new evidence becomes available and our peer review process is complete. This topic retrieved from [employer] on: Apr 21, 2017. Topic 78960 Version 11.0 Release: 25.6.2-122 - C26.3 ?2018??[employer]. and/or its affiliates.??All rights reserved. figure 1: Atrial fibrillation This drawing shows where the heart is located in the chest. In atrial fibrillation, the electrical signals that control the heartbeat are abnormal. As a result, the top two chambers of the heart (seearrows) stop pumping effectively, and blood that should move out of these chambers gets left behind. Graphic 28386 Version 3.0 figure 2: Signs of stroke The letters in the word fast help you remember the signs of stroke. If a person shows any of these signs, call an ambulance right away. In the [place] and [place], dial ??9-1-1. ?? Graphic 46197 Version 3.0 Consumer Information Use and Disclaimer This information is not specific medical advice and does not replace information you receive from your health care provider. This is only a brief summary of general information. It does NOT include all information about conditions, illnesses, injuries, tests, procedures, treatments, therapies, discharge instructions or life-style choices that may apply to you. You must talk with your health care provider for complete information about your health and treatment options. This information should not be used to decide whether or not to accept your health care provider's advice, instructions or recommendations. Only your health care provider has the knowledge and training to provide advice that is right for you.The use of [employer] content is governed by the [employer] Terms of Use. ??2018 [employer]. All rights reserved. Copyright ?2018??[employer] and/or its affiliates.??All rights reserved. documented in this encounter Progress Notes * Ezla Allan MD - 12/15/2017 10:30 AM CDTAddended by: ELZA ALLAN on: 02/15/2018 11:40 PM Modules accepted: Level of Service * Marcelle Madden RN - 12/15/2017 10:30 AM CDT Reason for Visit: Consult and Chest Pain Medications: Current Outpatient Prescriptions: ??? amitriptyline 50 MG tablet, Take 50 mg by mouth nightly at bedtime., Disp: , Rfl: ??? atorvastatin 40 MG tablet, Take 40 mg by mouth daily., Disp: , Rfl: ??? dabigatran 150 MG Cap, Take 1 capsule (150 mg total) by mouth 2 (two) times daily., Disp: 180 capsule, Rfl: 3 ??? furosemide 20 MG tablet, , Disp: , Rfl: ??? metFORMIN 850 MG tablet, Take 850 mg by mouth 2 (two) times daily with meals., Disp: , Rfl: ??? metoprolol succinate 50 MG 24 hr tablet, , Disp: , Rfl: ??? ranitidine 150 [...] Rfl: Allergies Allergen Reactions ??? Doxycycline Unknown Past Medical History: Diagnosis Date ??? Arthritis ??? Diabetes ??? GERD (gastroesophageal reflux disease) ??? Hyperlipidemia ??? Hypertension has had elevated B/P readings ??? SARAI on CPAP ??? Paroxysmal atrial fibrillation Past Surgical History: Procedure Laterality Date ??? HERNIA REPAIR ??? KNEE ARTHROPLASTY ??? XA ABLATION 05/19/2016 Social History Social History ??? Marital status: Spouse name: N/A ??? Number of children: 1 ??? 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 Smoking status: Never Smoker ??? Smokeless tobacco: Never Used ??? Alcohol use Yes ??? Drug use: No ??? Sexual activity: Not Asked Other Topics Concern ??? Exercise Yes walking ??? Special Diet No ??? Caffeine Concern Yes Social History Narrative No family history on file. Family Status Relation Status ??? Mother Alive ??? Sister Alive [...] snoring. Cardiovascular: See HPI Positive for chest pain. Gastrointestinal: Negative for blood in stool and melena. Genitourinary: Negative for dysuria. Musculoskeletal: Negative for myalgias and new or worsening joint stiffness/pain. Skin: Negative for rash. Neurological: Negative for tingling/numbness and focal weakness. Endo/Heme/Allergies: Negative for new or significant bruising/bleeding and polydipsia. Psychiatric/Behavioral: Negative for depression and new or significant memory loss. Filed Vitals: 12/16/17 0901 BP: 128/84 Resp: 18 SpO2: 98% Weight: 127.9 kg (282 lb) Height: 5' 10 (1.778 m) Body mass index is 40.46 kg/(m^2). Physical Exam Constitutional: He is oriented to person, place, and time. He appears well- developed and well-nourished. No distress. overweight HENT: Nose: No mucosal edema. Mouth/Throat: Oropharynx is clear and moist and mucous membranes are normal. No oropharyngeal exudate. Neck: Neck supple. No JVD present. Cardiovascular: Normal rate, regular rhythm, S1 normal, S2 normal and intact distal pulses. PMI is not displaced. Exam reveals no gallop. No murmur heard. Decrease pedal pulses bilateral Pulmonary/Chest: Effort normal and breath sounds normal. No respiratory distress. Abdominal: Normal appearance. He exhibits no abdominal bruit and no mass. There is no hepatosplenomegaly. There is no tenderness. Musculoskeletal: Normal range of motion. He exhibits no deformity. No chest wall tenderness Neurological: He is alert and oriented to person, place, and time. Skin: Skin is warm and dry. Psychiatric: He has a normal mood and affect. His behavior is normal. Thought content normal. Diagnoses/Impression: 1. Paroxysmal atrial fibrillation 2. Mixed hyperlipidemia 3. 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 Obstructive sleep apnea Referring Provider: No ref. provider found PCP: TON DELGADO MD * Elza Allan MD - 12/15/2017 12:00 AM CDT HISTORY OF PRESENT ILLNESS: Mr. Zelaya is seen in the [facility] today for reevaluation of his cardiac status. He reports that he has been having some difficulties with chest discomfort. Mr. Zelaya reports that he has been having this chest pain for a couple months. He describes this asbeginning in his midsternal region and radiating to his left upper arm down to the elbow. It can occur at any time and usually lasts from 1-2 minutes. He has also noted some associated headaches withthese events. He denies any associated nausea, diaphoresis, or radiation of the discomfort to his back. Mr. Durand cardiac risk factors for coronary artery disease include a history of diabetes mellitus,hypertension, and hyperlipidemia. He denies any family history of coronary artery disease or myocardial infarction and has no history of tobacco abuse. He does report a history of sleep apnea for which he is treated with a CPAP, which has been well tolerated. Mr. Zelaya underwent an echocardiogram in June of 2016 and this revealed a well- preserved overall left ventricular systolic function with a calculated LVEF of 63%. There was mild tricuspid regurgitation with a peak pulmonary artery systolic pressure estimated to be 37 mmHg. Mr. Zelaya' recent evaluation included laboratory. Cardiac enzymes were negative for myocardial infarction. A CBC showed a serum hemoglobin of 11.4 and hematocrit 35.0 with a normal white blood cell count. Serum electrolytes showed a serum potassium of 4.0 with a BUN of 14 and creatinine 0.99. A serum BNP level was within normal limits at 81. Serum albumin was reduced somewhat at 3.3. RECOMMENDATIONS AND PLAN: The exact etiology of Mr. Durand chest pain syndrome is unclear as it hasboth typical and atypical features. Given his cardiac risk factors for coronary artery disease and in particular his diabetes mellitus, the chest pain is somewhat bothersome and we must rule out the presence of underlying coronary artery disease. Further evaluation and treatment is warranted. After a long discussion in the clinic, I have recommended the following to Mr. Zelaya: 1. Continue present medical regimen without alteration. We will not initiate Aspirin antiplatelet therapy at this time as he is taking Pradaxa anticoagulation, but he will continue his statin therapy. 2. Adenosine nuclear stress test to rule out ongoing myocardial ischemia. Mr. Zelaya has been screened in the past using a pharmacologic nuclear stress testing when he has had chest pain syndromes in the past. Further evaluation and treatment will be based on the results of the stress testing. 3. Annual followup in the cardiology clinic. I have encouraged Mr. Zelaya to contact me in the meantime should he have any questions or problems. documented in this encounter Plan of Treatment Upcoming Encounters Date Type Department Care Team (Late st Contact Info) Description 04/25/2024 11:00 AM QUALITY CONTROL PROJECTIONIST Appointment [facility] [address] [place] [address] Ti Bonilla MD [address] [place] [phone] 05/23/2024 3:30 PM QUALITY CONTROL PROJECTIONIST Office Visit [facility] [address] [place] [address] Jyoti Escobar MD [address] [place] [phone] documented as of this encounter Visit Diagnoses Diagnosis Paroxysmal atrial fibrillation ([facility])- Primary Atrial fibrillation Essential hypertension Unspecified essential hypertension Mixed hyperlipidemia Obstructive sleep apnea Obstructive sleep apnea (adult) (pediatric) snf current use of anticoagulant therapy documented in this encounter Additional Health Concerns Infection Onset Date Last Indicated Resolved Time MRSA Comment:Negative MRSA 05/201903/11/2017 03/11/2017 10/03/2019 10:08 AM CDT documented as of this encounter Care Teams Licensed Chemical Spray Technician Relationship Specialty Start Date End Date Ton Delgado MD [address] [place] [address] PCP - General FAMILY PRACTICE 10/27/15 12/02/21 [place] [address] CARDIOVASCULAR DISEASE 10/27/15 10/24/18 [place] [address] [place] [employer] CARDIOVASCULAR DISEASE 08/19/16 [place] [address] CLINICAL CARDIAC ELECTROPHYSIOLOGY 06/16/17 Myah Handley, RD SCIENTIST [address] [place] [address] CARDIOVASCULAR DISEASE 06/16/17 07/10/19 documented as of this encounter
--- OUTSIDE RECORDS SUMMARY | 2024-04-23 04:30 | XMS_ITS | Encounter Summary ---
Author Organization [facility] Address [address] [place] [address]. [place], [place] [address] [place] [address] Care Team Providers Care Solar Photovoltaic Designer Name Role Phone Vernon Mercedes MD Primary Care Provider [phone] Stanislaw Rhodes MD Unavailable Unavailab Evaristo Ying MD Unavailable UnavailRaul Suresh MD Unavailable Unavailabl Myah Gee NP Unavailable Unavailable Reason for Visit * Reason Onset Date Comments Medication 2018 Encounter Details Date Type Department Care Team (Late st Contact Info) Description 2018 Telephone [facility] [address] [place] [address] Evaristo Allan MD Medication Social History Tobacco Use Types [...] 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 [address] [place] [address] Ti Bonilla MD [address] [place] [phone] 05/23/2024 3:30 PM CORD SPLICER Office Visit [facility] [address] [place] [address] Jyoti Escobar MD [address] [place] [phone] documented as of this encounter Visit Diagnoses Not on filedocumented in this encounter Additional Health Concerns Infection Onset Date Last Indicated Resolved Time MRSA Comment:Negative MRSA 05/201903/11/2017 03/11/2017 10/03/2019 10:08 AM CDT documented as of this encounter Care Teams Solar Photovoltaic Designer Relationship Specialty Start Date End Date Vernon Mercedes MD [address] [place] [address] PCP - General FAMILY PRACTICE 10/27/15 12/02/21 [place] [address] CARDIOVASCULAR DISEASE 10/27/15 10/24/18 [place] [address] [place] Motion Picture Set Worker CARDIOVASCULAR DISEASE 08/19/16 [place] [address] CLINICAL CARDIAC ELECTROPHYSIOLOGY 06/16/17 [place] [address] CARDIOVASCULAR DISEASE 06/16/17 07/10/19 documented as of this encounter
--- OUTSIDE RECORDS SUMMARY | 2024-04-23 04:30 | XMS_ITS | Encounter Summary ---
Author Organization [facility] Address [address] [place] [address]. [place], [place] [address] [place] [address] Care Team Providers Care Concrete Crusher Loader Operator Name Role Phone Vernon Mercedes MD Primary Care Provider [phone] Stanislaw Rhodes MD Unavailable Unavailab le Reason for Visit * Reason Onset Date Comments Follow Up Call 05/24/2016 Pt called regard ing the Return To Work letter faxed Tuesday. Encounter Details Date Type Department Care Team (Late st Contact Info) Description 05/24/2016 Telephone [facility] [address] [place] [address] Raul Santana MD Follow Up Call (Pt called regarding the Return To Work letter faxed Tuesday. 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 I told him I would do a new one with the corrections. He v/u. ICAL LABORATORY TECHNOLOGIST documented in this encounter Plan of Treatment Upcoming Encounters Date Type Department Care Team (Late st Contact Info) Description 04/25/2024 11:00 AM CLINICAL LABORATORY TECHNOLOGIST Appointment [facility] [address] [place] [address] Ti Bonilla MD [address] [place] [phone] 05/23/2024 3:30 PM CLINICAL LABORATORY TECHNOLOGIST Office Visit [facility] [address] [place] [address] Jyoti Escobar MD [address] [place] [phone] documented as of this encounter Visit Diagnoses Not on filedocumented in this encounter Care Teams Concrete Crusher Loader Operator Relationship Specialty Start Date End Date Vernon eMrcedes MD [address] [place] [phone] PCP - General FAMILY PRACTICE 10/27/15 12/02/21 Stanislaw Rhodes MD [address] [place] [address] CARDIOVASCULAR DISEASE 10/27/15 10/24/18 documented as of this encounter
--- OUTSIDE RECORDS SUMMARY | 2024-04-23 04:30 | XMS_ITS | Encounter Summary ---
Author Organization [facility] Address [address] [place] [address]. 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 [place] [address] Ti Bonilla MD [address] [place] [phone] 05/23/2024 3:30 PM PRESCHOOL SUBSTITUTE TEACHER Office Visit [facility] [address] [place] [address] Jyoti Escobar MD [address] [place] [address] documented as of this encounter Visit Diagnoses Not on filedocumented in this encounter Care Teams Research Program Intern Relationship Specialty Start Date End Date Vernon Mercedes MD [address] [place] [address] PCP - General FAMILY PRACTICE 10/27/15 12/02/21 Stanislaw Rhodes MD [address] [place] [address] CARDIOVASCULAR DISEASE 10/27/15 10/24/18 Evaristo Allan MD [address] [place] [address] [place] Sweeping Compound Blender CARDIOVASCULAR DISEASE 08/19/16 documented as of this encounter
--- OUTSIDE RECORDS SUMMARY | 2024-04-23 04:30 | XMS_ITS | Encounter Summary ---
Author Organization [facility] Address [address] [place] [address]. [place], [place] [phone] [place] [address] Care Team Providers Care Oracle Consultant Name Role Phone Vernon Mercedes MD Primary Care Provider [phone] Stanislaw Rhodes MD Unavailable Unavailab Evaristo Ying MD Unavailable UnavailRaul Suresh MD Unavailable UnavailMyah Elena NP Unavailable Unavailable Deven Cleary MD Unavailable Unavailable Encounter Details Date Type Department Care Team (Late Contact Info) Description 10/27/2016 Abstract [facility] [address] [place] [address] Danny Blackwell MD [address] [place] [address] Social History Tobacco Use Types [...] 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 Not on file documented as of this encounter Plan of Treatment Upcoming Encounters Date Type Department Care Team (Late Contact Info) Description 04/25/2024 11:00 AM WASTEWATER TREATMENT PLANT OPERATOR Appointment [facility] [address] [place] [address] Ti Bonilla MD [address] [place] [address] 05/23/2024 3:30 PM WASTEWATER TREATMENT PLANT OPERATOR [facility] [address] [place] [address] Jyoti Escobar MD [address] [place] [address] documented as of this encounter Visit Diagnoses Diagnosis Aftercare following joint replacement surgery Aftercare following joint replacement documented in this encounter Additional Health Concerns Infection Onset Date Last Indicated Resolved Time MRSA Comment:Negative MRSA 05/201903/11/2017 03/11/2017 10/03/2019 10:08 AM CDT documented as of this encounter Care Teams Oracle Consultant Relationship Specialty Start Date End Date Vernon Mercedes MD [address] [place] [address] PCP - General FAMILY PRACTICE 10/27/15 12/02/21 [place] [address] CARDIOVASCULAR DISEASE 10/27/15 10/24/18 [place] [address] [place] Senior Microsoft Consultant CARDIOVASCULAR DISEASE 08/19/16 [place] [address] CLINICAL CARDIAC ELECTROPHYSIOLOGY 06/16/17 [place] [address] CARDIOVASCULAR DISEASE 06/16/17 07/10/19 [place] [address] Prior Authorization Technician INTERVENTIONAL CARDIOLOGY 03/21/18 10/24/18 documented as of this encounter
--- OUTSIDE RECORDS SUMMARY | 2024-04-23 04:30 | XMS_ITS | Encounter Summary ---
Author Organization [facility] Address [address] [place] [address]. 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 [address] [place] [address] Ti Bonilla MD [address] [place] [phone] 05/23/2024 3:30 PM CURRICULUM CONSULTANT Office Visit [facility] [address] [place] [address] Jyoti Escobar MD [address] [place] [address] documented as of this encounter Visit Diagnoses Not on filedocumented in this encounter Additional Health Concerns Infection Onset Date Last Indicated Resolved Time MRSA Comment:Negative MRSA 05/201903/11/2017 03/11/2017 10/03/2019 10:08 AM CDT documented as of this encounter Care Teams Occupational Psychologist Relationship Specialty Start Date End Date Vernon Mercedes MD [address] [place] [address] PCP - General FAMILY PRACTICE 10/27/15 12/02/21 [place] [address] CARDIOVASCULAR DISEASE 10/27/15 10/24/18 [place] [address] Bryan Crystallizer Operator CARDIOVASCULAR DISEASE 08/19/16 [place] [address] CLINICAL CARDIAC ELECTROPHYSIOLOGY 06/16/17 Myah [place] [address] CARDIOVASCULAR DISEASE 06/16/17 07/10/19 documented as of this encounter
--- OUTSIDE RECORDS SUMMARY | 2024-04-23 04:30 | XMS_ITS | Encounter Summary ---
Author Organization [facility] Address [address] [place] [address]. [place], [place] [address] [place] [address] Care Team Providers Care Fabric Stretcher Name Role Phone Vernon Mercedes MD Primary Care Provider [phone] Stanislaw Rhodes MD Unavailable Unavailab Evaristo Ying MD Unavailable UnavailRaul Suresh MD Unavailable Unavailabl Myah Gee NP Unavailable Unavailable Reason for Visit * Reason Onset Date Comments Results 12/29/2017 Encounter Details Date Type Department Care Team (Late st Contact Info) Description 12/29/2017 Telephone [facility] [address] [place] [address] Evaristo Allan MD Results Social [...] 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 RCW recommends [facility] to define coronary anatomy. Risks & benefits discussed. Questions and concerns addressed. Instructions given and letter sent, he verbalizes understanding. Scheduled 01/04/18 at 1330 documented in this encounter Plan of Treatment Upcoming Encounters Date Type Department Care Team (Late st Contact Info) Description 04/25/2024 11:00 AM GATE SHEAR OPERATOR Appointment [facility] [address] [place] [address] Ti Bonilla MD [address] [place] [phone] 05/23/2024 3:30 PM GATE SHEAR OPERATOR Office Visit [facility] [address] [place] [address] Jyoti Escobar MD [address] [place] [phone] documented as of this encounter Visit Diagnoses Not on filedocumented in this encounter Additional Health Concerns Infection Onset Date Last Indicated Resolved Time MRSA Comment:Negative MRSA 05/201903/11/2017 03/11/2017 10/03/2019 10:08 AM CDT documented as of this encounter Care Teams Fabric Stretcher Relationship Specialty Start Date End Date [place] [address] PCP - General FAMILY PRACTICE 10/27/15 12/02/21 [place] [address] CARDIOVASCULAR DISEASE 10/27/15 10/24/18 [place] [address] [place] [employer] Shovel Operator CARDIOVASCULAR DISEASE 08/19/16 [place] [address] CLINICAL CARDIAC ELECTROPHYSIOLOGY 06/16/17 [place] [address] CARDIOVASCULAR DISEASE 06/16/17 07/10/19 documented as of this encounter
--- OUTSIDE RECORDS SUMMARY | 2024-04-23 04:30 | XMS_ITS | Encounter Summary ---
Author Organization [facility] Address [address] [place] [address]. [place], [place] [id number] [place], [place] [id number] Care Team Providers Care Spar Machine Operator Name Role Phone Vernon Delgado MD Primary Care Provider [phone] Stanislaw Rhodes MD Unavailable Unavailab Evaristo Ying MD Unavailable UnavailRaul Suresh MD Unavailable Unavailabl Myah Gee NP Unavailable Unavailable Reason for Visit * Reason Comments Follow Up Coronary Artery Disease Encounter Details Date Type Department Care Team (Latest Contact Info) Description 02/09/2018 2:00 PM CDT Office Visit 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 Not on file documented as of this encounter Last Filed Vital Signs Vital Sign Reading Time Taken Comments Blood Pressure 110/64 02/10/2018 3:27 PM CDT Pulse 95 02/10/2018 3:27 PM CDT Temperature - - Respiratory Rate 19 02/10/2018 3:27 PM CDT Oxygen Saturation 80% 02/10/2018 3:27 PM CDT Inhaled Oxygen Concentration - - Weight 118.4 kg (261 lb) 02/10/2018 3:27 PM CDT Height 177.8 cm (5' 10 ) 02/10/2018 3:27 PM CDT Body Mass Index 37.45 02/10/2018 3:27 PM CDT documented in this encounter Patient Instructions * Patient Instructions* Marcelle Madden, RN - 02/09/2018 2:00 PM CDT Images from the original note were not included. 1. Cont same meds 2. Dr Cleary consult for SHIP'S COOK 3. Auto Technician Mechanic to see in [place] by PCP Patient Education Patient Education Atrial Fibrillation The Basics Written by the doctors and editors at [facility], [place] What is atrial fibrillation???--??Atrial fibrillation is the [...] process is complete. This topic retrieved from [employer] on: Apr 21, 2017. Topic 93899 Version 11.0 Release: 25.6.2-122 - C26.3 ?2018??[employer] and/or its affiliates.??All rights reserved. figure 1: Atrial fibrillation This drawing shows where the heart is located in the chest. In atrial fibrillation, the electrical signals that control the heartbeat are abnormal. As a result, the top two chambers of the heart (seearrows) stop pumping effectively, and blood that should move out of these chambers gets left behind. Graphic 99318 Version 3.0 figure 2: Signs of stroke The letters in the word fast help you remember the signs of stroke. If a person shows any of these signs, call an ambulance right away. In the [place] and [place], dial ??9-1-1. ?? Graphic 78682 Version 3.0 Consumer Information Use and Disclaimer [...] that is right for you.The use of [employer] content is governed by the [employer] Terms of Use. ??2018 [employer]. All rights reserved. Copyright ?2018??[employer] and/or its affiliates.??All rights reserved. documented in this encounter Progress Notes * Evaristo Allan MD - 02/09/2018 2:00 PM CDT Reason for Visit: Follow Up and Coronary Artery Disease Medications: Current Outpatient Medications: ??? amitriptyline 50 MG tablet, Take 50 mg by mouth nightly at bedtime., Disp: , Rfl: ??? aspirin EC 81 MG EC tablet, Take 1 tablet (81 mg total) by mouth daily., Disp: 90 tablet, Rfl: 0 ??? atorvastatin 40 MG tablet, Take 40 mg by mouth daily., Disp: , Rfl: ??? dabigatran 150 MG Cap, Take 1 capsule (150 mg total) by mouth 2 (two) times daily., Disp: 180 capsule, Rfl: 3 ??? furosemide 20 MG tablet, , Disp: , Rfl: ??? HUMALOG 100 UNIT/ML injection (VIAL), Inject 15 Units into the skin nightly at bedtime., Disp: , Rfl: ??? isosorbide mononitrate ER (IMDUR) 30 MG 24 hr tablet, Take 1 tablet (30 mg total) by mouth daily., Disp: 30 tablet, Rfl: 5 ??? LEVEMIR 100 UNIT/ML injection, Inject 15 Units into the skin 3 (three) times daily with meals.,Disp: , Rfl: ??? metFORMIN 850 MG tablet, [...] test ??? Arthritis ??? Chest pain ??? Diabetes (HCC) ??? GERD (gastroesophageal reflux disease) ??? Headache ??? Hyperlipidemia ??? Hypertension has had elevated B/P readings ??? SARAI on CPAP ??? Paroxysmal atrial fibrillation (HCC) Past Surgical History: Procedure Laterality Date ??? CARDIAC CATHETERIZATION 01/04/2018 occluded prox RCA w/well developed ccpv-tw-achbj collaterals lvef 55-60% ??? FRACTURE SURGERY ??? HERNIA REPAIR ??? KNEE ARTHROPLASTY ??? XA ABLATION 05/19/2016 Social History Socioeconomic History ??? Marital status: Spouse name: Not on file ??? Number of children: 1 ??? Years of education: Not on file ??? Highest education level: Not on file Social Needs ??? Financial resource strain: Not on file ??? Food insecurity - worry: Not on file ??? Food insecurity - inability: Not on file ??? Transportation needs - medical: Not on file ??? Transportation needs - non-medical: Not on file Occupational History ??? 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 Smoking status: Never Smoker ??? Smokeless tobacco: Never Used Substance and Sexual Activity ??? Alcohol use: Yes ??? Drug use: No ??? Sexual activity: Not on file Other Topics Concern ??? Exercise Yes Comment: walking ??? Special Diet No ??? Caffeine Concern Yes Social History Narrative ??? Not on file No family history on file. Family Status [...] new or significant memory loss. Filed Vitals: 02/10/18 1527 BP: 110/64 Pulse: 95 Resp: 19 SpO2: (!) 80% Weight: 118.4 kg (261 lb) Height: 5' 10 (1.778 m) Body mass index is 37.45 kg/m??. Physical Exam Constitutional: He is oriented to person, place, and time. He appears well- developed and well-nourished. No distress. Overweight HENT: Nose: No mucosal edema. Mouth/Throat: Oropharynx is clear and moist and mucous membranes are normal. No oropharyngeal exudate. Neck: Neck supple. No JVD present. Cardiovascular: Normal rate, regular rhythm, S1 normal, S2 normal and intact distal pulses. PMI is not displaced. Exam reveals no gallop. No murmur heard. Pulmonary/Chest: Effort normal and breath sounds normal. No respiratory distress. No chest wall tenderness Abdominal: Normal appearance. He exhibits no abdominal bruit and no mass. There is no hepatosplenomegaly. There is no tenderness. Musculoskeletal: Normal range of motion. He exhibits no deformity. Neurological: He is alert and oriented to person, place, and time. Skin: Skin is warm and dry. Psychiatric: He has a normal mood and affect. His behavior is normal. Thought content normal. Diagnoses/Impression: 1. Paroxysmal atrial fibrillation (HCC) 2. Mixed hyperlipidemia 3. Essential hypertension 4. alf current use of anticoagulant therapy 5. Obstructive sleep apnea [place] Documentation Completed: Coronary Artery Disease Referring Provider: No ref. provider found PCP: VERNON DELGADO MD * Evaristo Allan MD - 02/09/2018 12:00 AM CDT HISTORY OF PRESENT ILLNESS: Mr. Zelaya is seen in the [facility] today for a scheduled followup visit. He has a history of coronary artery disease and is status post recent cardiac catheterization following an abnormal Adenosine nuclear stress test and was identified as having a totally occluded proximal right coronary artery with well-developed left to right collaterals and well-preserved overall left ventricular systolic function with a LVEF of 55-60%. It was felt at that time that an attempt at medical therapy was most appropriate. A review of the record show that Mr. Zelaya had his beta blockade dosing increased and Imdur added to his medical regimen. Aggressive cardiac risk factor modification was also pursued. Since his cardiac catheterization, he reports that he has continued to have difficulties with chest pains that happen all the time. It does seem as though when he stops doing activities and sits down that the discomfort goes away in 1-2 minutes. He has not had to take any sublingual Nitroglycerin to date and seems to be tolerating his present medications well. He denies any overt symptoms of congestive heart failure such as paroxysmal nocturnal dyspnea, orthopnea, or pedal edema. He has had no palpitations, s yncope, or near syncope. He denies any claudication and seems to be tolerating his present medications well. A review of the records show that the Adenosine nuclear stress test was performed on 12/26/2017 anddid demonstrate a reversible perfusion defect consistent with ischemia in the inferior wall with a left ventricular ejection fraction of 64%. A CBC showed a serum hemoglobin of 13.4 and hematocrit 40.1. Serum electrolytes demonstrated a serum potassium of 4.1 with a BUN of 12 and creatinine 0.87. RECOMMENDATIONS/ PLAN: Mr. Zelaya reports that he continues to have difficulties with his chest painsyndrome. The chest pain syndrome has both typical and atypical features, but is associated with a documented total chronic occlusion of the proximal right coronary artery and nuclear stress test evidence of ongoing myocardial ischemia in the inferior wall. Given Mr. Zelaya' ongoing symptomatology despite maximizing his medical therapy, I think it would be reasonable to consider intervention on his SHIP'S COOK. Continued aggressive cardiac risk factor modification will be important in Mr. Zelaya' long-term care, obviously. After a long discussion in the clinic, I have recommended the following to Mr. Zelaya: 1. Continue present medical regimen without alteration for now. 2. A formal dietary consultation in an effort to improve Mr. Zelaya' diet. He will be pursuing this through his primary care physician (Dr. Delgado) at the [facility]. 3. A formal consultation with Dr. Cleary for consideration of SHIP'S COOK intervention. documented in this encounter Plan of Treatment Upcoming Encounters Date Type Department Care Team (Late st Contact Info) Description 04/25/2024 11:00 AM MIDDLE SCHOOL SPANISH TEACHER Appointment [facility] [address] [place] [address] Ti Bonilla MD [address] [place] [phone] 05/23/2024 3:30 PM MIDDLE SCHOOL SPANISH TEACHER Office Visit [facility] [address] [place] [phone] Jyoti Escobar MD [address] [place] [phone] documented as of this encounter Visit Diagnoses Diagnosis Paroxysmal atrial fibrillation ([facility]/HCC HHS/HCC)- Primary Atrial fibrillation Coronary artery disease of [place] artery of [place] heart with stable angina pectoris (CMS/HCC) Essential hypertension Unspecified essential hypertension Mixed hyperlipidemia Obstructive sleep apnea Obstructive sleep apnea (adult) (pediatric) documented in this encounter Additional Health Concerns Infection Onset Date Last Indicated Resolved Time MRSA Comment:Negative MRSA 05/201903/11/2017 03/11/2017 10/03/2019 10:08 AM CDT documented as of this encounter Care Teams Spar Machine Operator Relationship Specialty Start Date End Date Vernon Dlegado MD [address] [place] [address] PCP - General FAMILY PRACTICE 10/27/15 12/02/21 Stanislaw [place] [place] [address] CARDIOVASCULAR DISEASE 10/27/15 10/24/18 Evar[place] [address] [phone] [place] Curriculum Development Coordinator CARDIOVASCULAR DISEASE 08/19/16 Raul [place] [address] [phone] CLINICAL CARDIAC ELECTROPHYSIOLOGY 06/16/17 Myah Handley, PROGRAMMING DEVELOPMENT PROJECT [place] [address] CARDIOVASCULAR DISEASE 06/16/17 07/10/19 documented as of this encounter
--- OUTSIDE RECORDS SUMMARY | 2024-04-23 04:30 | XMS_ITS | Encounter Summary ---
Author Organization [facility] Address [address] [place] [address]. [place], [place] [address] [place] [address] Care Team Providers Care Wagon Driver Salesperson Name Role Phone Vernon Mercedes MD Primary Care Provider [phone] Stanislaw Rhodes MD Unavailable Unavailab Evaristo Ying MD Unavailable Unavailabl e Reason for Visit * Reason Onset Date Comments Medication Question 12/29/2016 asking to ho ld pradaxa 7 days prior to colonoscopy Encounter Details Date Type Department Care Team (Late st Contact Info) Description 12/29/2016 Telephone [facility] [address] [place] [address] Raul Santana MD Medication Question (asking to hold pradaxa 7 days prior to colonoscopy) Social History Tobacco Use Types Packs/Day Years [...] 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 I informed her that if the doctor feels the medication needs to be held longer than therecommended time then he should clinical counselor the patient that they may be at increased risk for stroke should an arrhythmia occur during that time. The patient should resume their medication as soon as you feel it is appropriate. She voiced understanding and had no questions. * Johanny Bell RN - 12/29/2016 4:18 PM CDT Soheila with Dr. Vernon Mercedes called to inquire of pt holding pradaxa for 7 days prior to colonoscopy scheduled for 01/13/17. Dr. Feliz off service, will request prevention rn office, Dr. Haque To manage question, please call Soheila at [phone] documented in this encounter Plan of Treatment Upcoming Encounters Date Type Department Care Team (Late st Contact Info) Description 04/25/2024 11:00 AM CORE ANALYSIS OPERATOR Appointment [facility] [address] [place] [address] Ti Bonilla MD [address] [place] [phone] 05/23/2024 3:30 PM CORE ANALYSIS OPERATOR Office Visit [facility] [address] [place] [phone] Jyoti Escobar MD [address] [place] [phone] documented as of this encounter Visit Diagnoses Not on filedocumented in this encounter Care Teams Wagon Driver Salesperson Relationship Specialty Start Date End Date Vernon Mercedes MD [address] [place] [phone] PCP - General FAMILY PRACTICE 10/27/15 12/02/21 Stanislaw Rhodes MD [address] [place] [address] CARDIOVASCULAR DISEASE 10/27/15 10/24/18 Evaristo Allan MD [address] [place] [phone] [place] Shoe Repair Supervisor CARDIOVASCULAR DISEASE 08/19/16 documented as of this encounter
--- OUTSIDE RECORDS SUMMARY | 2024-04-23 04:30 | XMS_ITS | Encounter Summary ---
Author Organization [facility] Address [address] [place] [address]. [place], [place] [address] [place] [address] Care Team Providers Care Geometrician Name Role Phone Vernon Delgado MD Primary Care Provider [phone] Stanislaw Rhodes MD Unavailable Unavailab le Reason for Referral * Imaging (Routine) - Closed Specialty Diagnoses / Procedures Referred By Contac t Referred To Contact CARDIOLOGY Diagnoses Paroxysmal atrial fibrillation ([facility]) Procedures USE ECHOCARDIOGRAM Evaristo Allan MD [address] [address] Phone: tel: fax: Referral ID Status Reason Start Date Expiration Date Visits Re quested Visits Authorized [id number] Closed 07/08/2016 08/22/2016 1 1 Reason for Visit * Reason Comments Chest Pain Follow Up Atrial Fibrillation 5 days after ablatio n Encounter Details Date Type Department Care Team (Latest Contact Info) Description 07/08/2016 2:00 PM CDT Office Visit [facility] [address] [place] [address] Evaristo Allan MD Chest Pain; Follow Up; Atrial Fibrillation (5 days after ablation) Social History Tobacco Use Types Packs/Day Years [...] Reading Time Taken Comments Blood Pressure 110/64 07/09/2016 2:02 PM CDT Pulse 57 07/09/2016 2:02 PM CDT Temperature - - Respiratory Rate 16 07/09/2016 2:02 PM CDT Oxygen Saturation 95% 07/09/2016 2:02 PM CDT Inhaled Oxygen Concentration - - Weight 127.9 kg (282 lb) 07/09/2016 2:02 PM CDT Height 177.8 cm (5' 10 ) 07/09/2016 2:02 PM CDT Body Mass Index 40.46 07/09/2016 2:02 PM CDT documented in this encounter Progress Notes * Evaristo Allan MD - 08/15/2016 3:04 PM CDT HISTORY OF PRESENT ILLNESS: Mr. Zelaya is seen in the [facility] today for a scheduled followup visit. He reports that he has been having some difficulties with chest pain. Mr. Zelaya reports that over the last few weeks he has had chest discomfort. He describes this as a sharp and dull discomfort located on both sides of his sternum. It usually lasts from 5-10 minutes but can last up to hours. When he is having the chest discomfort, he feels somewhat air limited. Hehas also had occasional diaphoresis with the discomfort. It is not exacerbated by exertion or supine positioning. It feels different than his usual GERD. He does report that he has been using his CPAP machine for some 4-5 months now. Mr. Zelaya did have an episode of atrial fibrillation 5 days after his ablation. He was seen in the emergency room and he returned to sinus rhythm during his stay in the emergency room. It was recommended that he increase Diltiazem to 120 mg p.o. b.i.d. Mr. Zelaya denies any overt symptoms of congestive heart failure such as paroxysmal nocturnal dyspnea, orthopnea, or pedal edema. His chest pain seems to be unrelated to any recurrence of his atrial fibrillation clinically. He denies any syncope. He is tolerating his present medications well. A review of the records shows that Mr. Zelaya underwent a pharmacologic nuclear stress test in October of 2015. This showed no perfusion abnormalities with a stress LVEF mildly diminished at 51%. RECOMMENDATIONS AND PLAN: The exact etiology of Mr. Durand chest pain syndrome is unclear but appears to be musculoskeletal in etiology given its reproduction with palpation over the costochondral joints bilaterally, the left being more tender than the right. Given his recent atrial fibrillation ablation, I do think we need to also rule out a pericardial effusion related to the procedure. I have recommended the following to Mr. Zelaya: 1. Continue present medical regimen without alteration for now. 2. Initiate anti-inflammatory therapy for the suspected musculoskeletal discomfort. I have instructed him to begin Ibuprofen 600 mg p.o. t.i.d. with meals in an effort to alleviate his chest pain syndrome. 3. Echocardiogram to rule out the presence of a pericardial effusion or other underlying structuralheart disease. 4. Further evaluation and treatment will be based on the results of the above testing and Mr. Zelaya' clinical course. I have asked him to return to the cardiology clinic on his regular outpatient followup schedule. I have also encouraged him to contact me in the meantime should he have any questions or problems. * Evaristo Allan MD - 07/08/2016 2:00 PM CDT Reason for Visit: Chest Pain; Follow Up; and Atrial Fibrillation (5 days after ablation) Recommendations and Plan: History of Present Illness: Medications: Current Outpatient Prescriptions: ??? amiodarone 200 MG tablet, Take 1 tablet (200 mg total) by mouth daily. Take for 3 months only, Disp: 30 tablet, Rfl: 2 ??? atorvastatin 40 MG tablet, Take 40 mg by mouth daily., Disp: , Rfl: ??? dabigatran 150 MG Cap, Take 1 capsule (150 mg total) by mouth 2 (two) times daily., Disp: 180 capsule, Rfl: 3 ??? diltiazem 24 hr 120 MG capsule, , Disp: , Rfl: ??? insulin lispro 100 UNIT/ML injection (VIAL), Inject into the skin 3 (three) times daily before meals., Disp: , Rfl: ??? LEVEMIR 100 UNIT/ML injection, , Disp: , Rfl: ??? metFORMIN 850 MG tablet, Take 850 mg by mouth 2 (two) times daily with meals., Disp: , Rfl: ??? metoprolol succinate 50 MG 24 hr tablet, Take 1 tablet (50 mg total) by mouth daily., Disp: 90 tablet, Rfl: 3 ??? oxybutynin 5 MG tablet, Take 5 mg by mouth daily., Disp: , Rfl: ??? ranitidine 150 MG [...] Medical History: Diagnosis Date ??? Arthritis ??? Atrial fibrillation ??? Cardiac dysrhythmia AF ??? Diabetes ??? GERD (gastroesophageal reflux disease) ??? Hyperlipidemia ??? Hypertension has had elevated B/P readings Past Surgical History: Procedure Laterality Date ??? HERNIA REPAIR ??? KNEE ARTHROPLASTY Social History Social History ??? Marital status: Spouse name: N/A ??? Number of children: 1 ??? 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 Smoking status: [...] cancer Review of Systems Constitutional: Negative for malaise/fatigue and weight loss. HENT: Negative for hearing loss. Eyes: Negative for blurred vision and double vision. Respiratory: Positive for shortness of breath (air limited diaphoretic cpap 4- 5months). Negative for cough, hemoptysis and wheezing. Cardiovascular: Positive for chest pain, palpitations and leg swelling (1+ edema bilat). Gastrointestinal: Negative for blood in stool and melena. Genitourinary: Negative for dysuria. Musculoskeletal: Negative for joint pain and myalgias. Skin: Negative for rash. Neurological: Negative for tingling, sensory change, focal weakness and headaches. Endo/Heme/Allergies: Negative for polydipsia. Does not bruise/bleed easily. Filed Vitals: 07/09/16 1402 BP: 110/64 Pulse: 57 Resp: 16 SpO2: 95% Weight: 127.9 kg (282 lb) Height: 5' 10 (1.778 m) Physical Exam Constitutional: He is oriented to person, place, and time. He appears well- developed and well-nourished. No distress. Carlos. HENT: Nose: No mucosal edema. Mouth/Throat: Oropharynx is clear and moist and mucous membranes are normal. No oropharyngeal exudate. Neck: Neck supple. No JVD present. Cardiovascular: Normal rate, regular rhythm, S1 normal, S2 normal and intact distal pulses. PMI is not displaced. Exam reveals no gallop. No murmur heard. 1+ pedal edema bilaterally. Pulmonary/Chest: Effort normal and breath sounds normal. No respiratory distress. Abdominal: Normal appearance. He exhibits no abdominal bruit and no mass. There is no hepatosplenomegaly. There is no tenderness. Obese. Musculoskeletal: Normal range of motion. He exhibits no deformity. Tender over costrochondral joints (L>R). Neurological: He is alert and oriented to person, place, and time. Skin: Skin is warm and dry. Psychiatric: He has a normal mood and affect. His behavior is normal. Thought content normal. No results found for this visit on 07/08/16. Diagnoses/Impression: No diagnosis found. [place]CLE Documentation Completed: Atrial Fibrillation Referring Provider: No ref. provider found PCP: VERNON DELGADO documented in this encounter Plan of Treatment Upcoming Encounters Date Type Department Care Team (Late st Contact Info) Description 04/25/2024 11:00 AM HEAT SEAL OPERATOR Appointment [facility] [address] [place] [address] Ti Bonilla MD [address] [place] [phone] 05/23/2024 3:30 PM HEAT SEAL OPERATOR [facility] [address] [place] [phone] Jyoti Escobar MD [address] [place] [address] Scheduled Orders Name Type Priority Associated Diagnoses Orde r Schedule USE ECHOCARDIOGRAM ECHO Routine Paroxysmal atrial fibrillation ([facility]) Expected: 07/13/2016, Expires: 07/16/2017 documented as of this encounter Visit Diagnoses Diagnosis Paroxysmal atrial fibrillation ([facility])- Primary Atrial fibrillation Atypical chest pain Other chest pain ASRAI (obstructive sleep apnea) Obstructive sleep apnea (adult) (pediatric) Essential hypertension Unspecified essential hypertension Hyperlipidemia, unspecified hyperlipidemia type documented in this encounter Care Teams Geometrician Relationship Specialty Start Date End Date Vernon Delgado MD [address] [place] [phone] PCP - General FAMILY PRACTICE 10/27/15 12/02/21 Stanislaw Rhodes MD [address] [place] [address] CARDIOVASCULAR DISEASE 10/27/15 10/24/18 documented as of this encounter
--- OUTSIDE RECORDS SUMMARY | 2024-04-23 04:30 | XMS_ITS | Encounter Summary ---
Author Organization [facility] Address [address] [place] [address]. 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 [address] [place] [address] Ti Bonilla MD [address] [place] [phone] 05/23/2024 3:30 PM ACCOUNTING ASSOCIATE Office Visit [facility] [address] [place] [address] Jyoti Escobar MD [address] [place] [address] documented as of this encounter Procedures Procedure Name Priority Date/Time Associated Diagnosis Comments NM PHARM NUC STRESS TEST 1DAY W TRACING Routine 12/26/2017 Chest pain documented in this encounter Results * NM PHARM NUC STRESS TEST 1DAY (12/26/2017) Anatomical Region Laterality Modality Cardiac Nuclear Medicine us Evaristo Allan MD NUC MED Final Resul t documented in this encounter Visit Diagnoses Diagnosis Chest pain Chest pain, unspecified documented in this encounter Additional Health Concerns Infection Onset Date Last Indicated Resolved Time MRSA Comment:Negative MRSA 05/201903/11/2017 03/11/2017 10/03/2019 10:08 AM CDT documented as of this encounter Care Teams Picture Enlarger Relationship Specialty Start Date End Date Vernon Mercedes MD [address] [place] [address] PCP - General FAMILY PRACTICE 10/27/15 12/02/21 [place] [address] CARDIOVASCULAR DISEASE 10/27/15 10/24/18 [place] [phone] Vernon Power System Dispatcher CARDIOVASCULAR DISEASE 08/19/16 Ra[place] [phone] CLINICAL CARDIAC ELECTROPHYSIOLOGY 06/16/17 [place] [address] CARDIOVASCULAR DISEASE 06/16/17 07/10/19 documented as of this encounter
--- OUTSIDE RECORDS SUMMARY | 2024-04-23 04:30 | XMS_ITS | Encounter Summary ---
Author Organization [facility] Address [address] [place] [address]. 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 documented in this encounter Plan of Treatment Upcoming Encounters Date Type Department Care Team (Late Contact Info) Description 04/25/2024 11:00 AM CIVIL CAD DESIGNER Appointment [facility] [address] [place] [address] Ti Bonilla MD [address] [place] [phone] 05/23/2024 3:30 PM CIVIL CAD DESIGNER Office Visit [facility] [address] [place] [phone] Jyoti Escobar MD [address] [place] [phone] documented as of this encounter Visit Diagnoses Not on filedocumented in this encounter Care Teams Heel Nail Rasper Relationship Specialty Start Date End Date Vernon Mercedes MD [address] [place] [address] PCP - General FAMILY PRACTICE 10/27/15 12/02/21 Stanislaw Rhodes MD [address] [place] [address] CARDIOVASCULAR DISEASE 10/27/15 10/24/18 documented as of this encounter
--- OUTSIDE RECORDS SUMMARY | 2024-04-23 04:30 | XMS_ITS | Encounter Summary ---
Author Organization [facility] Address [address] [place] [address]. 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 [place] [address] Ti Bonilla MD [address] [place] [phone] 05/23/2024 3:30 PM DAIRY QUALITY ASSURANCE OFFICER Office Visit [facility] [address] Jyoti Escobar MD [address] [place], [place] [phone] documented as of this encounter Procedures Procedure Name Priority Date/Time Associated Diagnosis Comments BASIC METABOLIC PANEL TIMED 05/20/2016 5:14 AM DAIRY QUALITY ASSURANCE OFFICER documented in this encounter Results * (ABNORMAL) BASIC METABOLIC PANEL (05/20/2016 5:14 AM DAIRY QUALITY ASSURANCE OFFICER) SODIUM S/P/B 135 135 - 147 MMOL/L 05/20/2016 6:01 AM [facility] POTASSIUM S/P/B 4.0 3.5 - 5.0 MMOL/L 05/20/2016 6:01 AM [facility] CHLORIDE S/P/B 102 98 - 107 MMOL/L 05/20/2016 6:01 AM [facility] CO2 25.8 22 - 29 MMOL/L 05/20/2016 6:01 AM [facility] GLUCOSE 180(H) 70 - 109 MG/DL 05/20/2016 6:01 AM [facility] BUN 13 8 - 26 MG/DL 05/20/2016 6:01 AM [facility] CREATININE S/P/B 0.86 0.70 - 1.30 MG/DL 05/20/2016 6:01 AM [facility] CALCIUM S/P/B 8.9 8.4 - 10.2 MG/DL 05/20/2016 6:01 AM [facility] EGFR NON-AFR. AMER. 92 >60 ML/MIN/1.7 3 M2 05/20/2016 6:01 AM [facility] EGFR AFR. AMER. 111 >60 ML/MIN/1.7 3 M2 05/20/2016 6:01 AM [facility] ANION GAP 7.2 MMOL/L 05/20/2016 6:01 AM DAIRY QUALITY ASSURANCE OFFICER [facility] OSMOLALITY (CALC) 275 MOSM/KG 05/20/2016 6:01 AM DAIRY QUALITY ASSURANCE OFFICER [facility] PLASMA SPECIMEN / Unknown 05/20/2016 5:14 AM DAIRY QUALITY ASSURANCE OFFICER 05/20/2016 5:26 AM DAIRY QUALITY ASSURANCE OFFICER us Generic Conversion Md [facility] Final R esult [facility] [place] [address], [id number] documented in this encounter Visit Diagnoses Not on filedocumented in this encounter Additional Health Concerns Infection Onset Date Last Indicated Resolved Time MRSA Comment:Negative MRSA 05/201903/11/2017 03/11/2017 10/03/2019 10:08 AM CDT documented as of this encounter Care Teams Spring Setter Relationship Specialty Start Date End Date Vernon Mercedes MD [address] [place] [phone] PCP - General FAMILY PRACTICE 10/27/15 12/02/21 Satnislaw Rhodes MD [address] [place] [phone] CARDIOVASCULAR DISEASE 10/27/15 10/24/18 Evaristo Allan MD [address] [place] [phone] [employer] Biological Photographer CARDIOVASCULAR DISEASE 08/19/16 documented as of this encounter
--- OUTSIDE RECORDS SUMMARY | 2024-04-23 04:30 | XMS_ITS | Encounter Summary ---
Author Organization [facility] Address [address] [place] [address]. 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 Mercedes Reason: Chief Complaint Chief Complaint: The patient presents to the office today with RIGHT knee pain. History of Present Illness HPI: Patient returns to clinic today with complaints of RIGHT knee pain. He reports he's had increasing pain over the last six weeks. He recalls no injury. He has pain with stairs. He also has pain at start up. He has night pain that keeps him awake. he had previous RIGHT TKA and reports has had pain with activity for years. He reports the last six weeks he's had increased pain that effects his daily activities. He. Review of Systems See HPI for pertinent positives. Active Problems 1. Abdominal pain (789.00) (R10.9) 2. Aftercare following knee joint replacement surgery (V54.81,V43.65) (Z47.1,Z96.659) 3. Aftercare following surgery (V58.89) (Z48.89) 4. Arthritis of knee (716.96) (M17.10) 5. Derangement of medial meniscus, left (717.3) (M23.304) 6. Diabetes (250.00) (E11.9) 7. Heartburn (787.1) (R12) 8. Hypertension (401.9) (I10) 9. Knee pain, right (719.46) (M25.561) 10. Left knee pain (719.46) (M25.562) 11. 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) 12. Pes anserine bursitis (726.61) (M70.50) 13. Postoperative examination (V67.00) (Z09) 14. Recurrent ventral incisional hernia (553.21) (K43.2) 15. Right knee pain (719.46) (M25.561) 16. Status post orthopedic surgery, follow-up exam (V67.09) (Z09) Past Medical History 1. Abdominal pain (789.00) (R10.9) 2. Derangement of medial meniscus, left (717.3) (M23.304) 3. Heartburn (787.1) (R12) 4. History of diabetes mellitus (V12.29) (Z86.39) 5. Hypertension (401.9) (I10) 6. Recurrent ventral incisional hernia (553.21) (K43.2) Surgical History 1. History of Hernia Repair 2. Denied: History Of Prior Surgery 3. History of Knee Replacement Family History Mother 1. Family history of hypertension (V17.49) (Z82.49) Family History 2. Family history of essential hypertension (V17.49) (Z82.49) Social History ?? Never a smoker Current Meds 1. Amoxicillin-Pot Clavulanate 875-125 MG Oral Tablet; Therapy: 33Wzm6598 to Recorded 2. Atenolol TABS; Therapy: (Recorded:15Mgo9313) to Recorded 3. Atorvastatin Calcium 40 MG Oral Tablet; Therapy: 26Jun2014 to Recorded 4. HumaLOG 100 UNIT/ML Subcutaneous Solution; Therapy: 02Vzz9446 to Recorded 5. Hydrocodone-Acetaminophen 5-325 MG Oral Tablet; Therapy: 19Jun2014 to Recorded 6. Hydrocodone-Acetaminophen 7.5-325 MG Oral Tablet ([place]); 1 q 6 hrs prn pain; Therapy: 38Ghf8735 to (Last Rx:21Jan2015) Ordered 7. Hydrocodone-Acetaminophen 7.5-325 MG Oral Tablet; TAKE 1 TABLET EVERY 6 HOURS NEEDED; Therapy: 21Mtr7630 to (Evaluate:29Jan2015); Last Rx:15Qvr2926 Ordered 8. Levemir 100 UNIT/ML Subcutaneous Solution; Therapy: (Recorded:61Mpk5037) to Recorded 9. MetFORMIN HCl TABS; Therapy: (Recorded:31Xsi3446) to Recorded 10. MethylPREDNISolone 4 MG Oral Tablet Therapy Pack (Medrol); as directed; Therapy: 02Pch2575 to (Last Rx:99Bwk1635) Requested for: 98Jdj9779 Ordered 11. MethylPREDNISolone 4 MG Oral Tablet Therapy Pack (Medrol); as directed; Therapy: 69Trs8633 to (Last Rx:44Gyk2624) Requested for: 30Unz8718 Ordered 12. Metoprolol Succinate ER 50 MG Oral Tablet Extended Release 24 Hour; Therapy: 19Uwc7261 to Recorded 13. Naprosyn TABS (Naproxen); Therapy: (Recorded:82Ajb1791) to Recorded 14. NovoLOG 100 UNIT/ML Subcutaneous Solution; Therapy: 60Vko7074 to Recorded 15. Oxybutynin Chloride 5 MG Oral Tablet; Therapy: 21Jun2014 to Recorded 16. Polyethylene Glycol 3350 Oral Powder; Therapy: 15Oct2015 to Recorded 17. RaNITidine HCl TABS; Therapy: (Recorded:03Kzo6844) to Recorded 18. Spironolactone 25 MG Oral Tablet; Therapy: 24Sep2015 to Recorded 19. Sulfamethoxazole-Trimethoprim 800-160 MG Oral Tablet; Therapy: 42Zqb6891 to Recorded 20. Sure Comfort Insulin Syringe 31G X 5/16 0.3 ML Miscellaneous; Therapy: (Recorded:09Mar2016) to Recorded 21. Sure Comfort Insulin Syringe 31G X 5/16 0.3 ML Miscellaneous; Therapy: 15Oct2013 to Recorded 22. Sure Comfort Insulin Syringe 31G X 5/16 1 ML Miscellaneous; Therapy: 02Jul2014 to Recorded 23. Tamsulosin HCl - 0.4 MG Oral Capsule; Therapy: (Recorded:10Lbv9276) to Recorded 24. TraMADol HCl TABS; Therapy: (Recorded:62Fdt1492) to Recorded 25. TRUEplus Lancets 28G Miscellaneous; Therapy: 25Wni4688 to Recorded 26. Warfarin Sodium 5 MG Oral Tablet; Therapy: 14Oct2015 to Recorded Allergies 1. Tetracyclines Physical Exam Constitutional: alert and in no acute distress. Neurological:. the patient was oriented to person, place, and time. mood and affect were appropriate. Eyes: pupils were equal in size, round, reactive to light, with normal accommodation. ENT: hearing was normal. Pulmonary: no respiratory distress. Abdomen: non-tender. Skin: no injuries or skin lesions on the right lower extremity. Right Knee: EXAM today reveals small effusion, no redness, range of motion OK, no ligamentous laxity, 0 - 110, no hip pain with rotation, negative straight leg raise, NVI Results/Data XRAYS today of her RIGHT knee reveals aligned OK, some lucency under tibia plate with no obvious subsidence. Findings: Assessment 1. Mechanical complication of internal orthopedic device, implant or graft, initial encounter (996.40) (T84.490I) Plan Aftercare following knee joint replacement surgery 1. XR Knee 1 to 2 View Rt; Status:Active; Requested for:72Ueb2845; 2. XR Knee Standing Bi; Status:Active; Requested for:97Dra8281; Aftercare following knee joint replacement surgery, Right knee pain 3. Hydrocodone-Acetaminophen 7.5-325 MG Oral Tablet ([place]); 1- 2 Q 4 - 6 HRS PRN PAIN Hypertension 4. CBC with Differential; Status:Active; Requested for:40Lso7026; Right knee pain 5. C-Reactive Protein; Status:Active; Requested for:07Orm6318; 6. Erythrocyte Sedimentation Rate; Status:Active; Requested for:97Mfa4590; I Have provided him [place]. I have ordered some lab work to rule out infection. I have provided him a PT script. He'll return in 2 weeks. Signatures Electronically signed by : Danny Steiner M.D.; Nov 01 2016 9:17AM PARTS WASHER (Author) documented in this encounter Plan of Treatment Upcoming Encounters Date Type Department Care Team (Late st Contact Info) Description 04/25/2024 11:00 AM PARTS WASHER Appointment [facility] [address] [place] [address] [place] [address] Ti Bonilla MD [address] [place] [phone] 05/23/2024 3:30 PM PARTS WASHER Office Visit [facility] [address] [place] [address] [place] [address] Jyoti Escobar MD [address] [place] [phone] documented as of this encounter Procedures Procedure Name Priority Date/Time Associated Diagnosis Comments SED RATE, ERYTHROCYTE (ESR) Routine 10/28/2016 3:25 PM CDT C-REACTIVE PROTEIN Routine 10/28/2016 3: 25 PM CDT CBC W/DIFF AUTOMATED Routine 10/28/2016 3:25 PM CDT SURG XR KNEE RT 1-2V Routine 10/27/2016 6:01 PM CDT XR KNEE STAND AP VANITA ONLY Routine 10/27/2016 5:58 PM CDT documented in this encounter Results * (ABNORMAL) CBC W/DIFF AUTOMATED (10/28/2016 3:25 PM CDT) WBC 7.0 4.5 - 10.8 x10'3/uL [facility] TO EP[facility] CONVERSION RBC 4.37(L) 4.50 - 6.10 x10'6/uL [facility] TO EPIC CONVERSION HGB 12.6(L) 13.0 - 18.0 G/DL [facility] TO [facility] CONVERSION HCT 37.7 37.0 - 52.0 % [facility] TO EPIC CONVERSION MCV 86.3 78.0 - 100.0 FL [facility] TO EPIC CONVERSION MCH 28.8 27.0 - 31.0 PG [facility] TO EPIC CONVERSION MCHC 33.4 33.0 - 36.0 G/DL [facility] TO EPIC CONVERSION RDW 13.5 11.5 - 14.5 % [facility] TO [facility]IC CONVERSION PLT 225 150 - 350 x10'3/uL [facility] TO EPIC CONVERSION MPV 12.6(H) 7.4 - 10.4 FL [facility] TO EPIC CONVERSION SEG NEUTROPHILS 60.3 % [facility] ROUP TO EPIC CONVERSION ABS. NEUTROPHILS 4.23 1.60 - 8.30 x10'3/uL [facility] TO EPIC CONVERSION LYMPHOCYTES 25.4 % [facility] TO EPIC CONVERSION ABS. LYMPHOCYTES 1.78 0.80 - 4.70 x10'3/uL [facility] TO EPIC CONVERSION MONOCYTES 12.1 % [facility] T O EPIC CONVERSION ABS. MONOCYTES 0.85 0.00 - 1.50 x10'3/uL [facility] TO EPIC CONVERSION EOSINOPHILS 1.1 % [facility] TO EPIC CONVERSION ABS. EOSINOPHILS 0.08 0.00 - 0.40 x10'3/uL [facility] TO EPIC CONVERSION IMMATURE GRANS % 0.4 % [facility] TO EPIC CONVERSION BASOPHILS 0.7 % [facility] T O EPIC CONVERSION ABS. NUCLEATED RBC'S 0.00 0.00 x10'3/uL [facility] TO EPIC CONVERSION ABS. BASOPHILS 0.05 0.00 - 0.20 x10'3/uL [facility] TO EPIC CONVERSION ABS. IMMATURE GRANULOCYTES 0.03 0.00 - 0.03 x10'3/uL [facility] TO EPIC CONVERSION NRBC 0.0 % [facility] T O EPIC CONVERSION 10/28/2016 3:25 PM CDT 10/28/2016 3:25 PM CDT Narrative [facility] CONVERSION - 10/28/2016 4:14 PM CDT Result Communication: No patient communication needed at this time us Danny Steiner MD LABORATORY Final Result [facility] TO [facility] CONVERSION * C-REACTIVE PROTEIN (10/28/2016 3:25 PM CDT) C-REACTIVE PROTEIN 0.40 <0.6 mg/dL [facility] TO EPIC CONVERSION Comment: Result Comment: PERFORMED AT [facility], [address] [place] [phone] 10/28/2016 3:25 PM CDT 10/28/2016 3:25 PM CDT Narrative [facility] TO [facility] CONVERSION - 10/29/2016 4:43 PM CDT Result Communication: No patient communication needed at this time us Danny Steiner MD LABORATORY Final Result Performing Organization Address [facility]/ZIP Co de Phone Number [facility] TO EPIC CONVERSION * (ABNORMAL) SED RATE, ERYTHROCYTE (ESR) (10/28/2016 3:25 PM CDT) Pathologist [facility] [place] ESR 34(H) 0 - 20 MM/HR [facility] TO EPIC CONVERSION Comment: Result Comment: NOTE: ANEMIA, IF PRESENT, MAY CAUSE AN ELEVATED SEDIMENTATION RATE. 10/28/2016 3:25 PM CDT 10/28/2016 3:25 PM CDT Narrative [facility] TO [facility] CONVERSION - 10/28/2016 4:18 PM CDT Result Communication: No patient communication needed at this time us Danny Steiner MD LABORATORY Final Result [facility] TO [facility] CONVERSION * SURG XR KNEE RT 1-2V (10/27/2016 6:01 PM CDT) Anatomical Region Laterality Modality Knee IMAGES ONLY 10/27/2016 6:01 PM CDT 10/27/2016 6:01 PM CDT Narrative 10/27/2016 6:10 PM CDT [facility] ?? [facility] ?? [place], [place] ? Patient Name: ELZA MCKEON Date of : 1960 ?? Med Rec #: [id number] ??Age/Sex: 56/M ?Pt. Location: ORTHO ?? Attending Provider: DANNY STEINER MD (TRACY) ?? Ordering Provider: DANNY STEINER MD (TRACY) ? Study Date Order Number Procedure ?? 10/27/16 XR Knee 1 to 2 Views Rt ? Signed ? Bilateral knees and right knee ? Exam time: ?? 1538 hours. ? Indications: ?? Follow-up right TKA. Pain. ? Technique: ?? PA weightbearing view of both knees and weightbearing lateral and patellar views of the right knee were obtained. ? Comparison: ?? -Weightbearing PA view of both knees dated 03/09/2016. ?? -Images of the right knee dated 11/26/2015. ? Findings: ?? Bilateral knee arthroplasties are again visualized. No evidence of acute fracture or subluxation. No plain film evidence of significant prosthesis loosening. ? IMPRESSION: ?? Bilateral knee arthroplasties in good apparent alignment. No evidence of acute fracture, subluxation, or significant prosthesis loosening. ? Electronically Signed By: MARIAM HAYNES MD 10/27/16 180 ? Dictated On: 10/27/16 180 ?? Interpreted By: MARIAM HAYNES MD ?? Transcribed On: 10/27/16 180 - INFCE ?? Procedure Note Stephani Luz MD - 02/09/2018 [place] [address] [employer] [place], [place] Patient Name: ELZA MCKEON Date of : 1960 Med Rec #: [id number] Age/Sex: 56/M Pt. Location: ORTHO Attending Provider: DANNY STEINER MD (TRACY) Ordering Provider: DANNY STEINER MD (TRACY) Study Date Order Number Procedure 10/27/16 [id number] XR Knee 1 to 2 Views Rt Signed Bilateral knees and right knee Exam time: 1538 hours. Indications: Follow-up right TKA. Pain. Technique: PA weightbearing view of both knees and weightbearing lateral andpatellar views of the right knee were obtained. Comparison: -Weightbearing PA view of both knees dated 03/09/2016. -Images of the right knee dated 11/26/2015. Findings: Bilateral knee arthroplasties are again visualized. No evidence of acutefracture or subluxation. No plain film evidence of significant prosthesis loosening. IMPRESSION: Bilateral knee arthroplasties in good apparent alignment. No evidence ofacute fracture, subluxation, or significant prosthesis loosening. Electronically Signed By: MARIAM HAYNES MD 10/27/161801 Dictated On: 10/27/161800 Interpreted By: MARIAM HAYNES MD Transcribed On: 10/27/16 180 - INF[facility] Danny Steiner MD IMAGES ONLY Final Result * XR KNEE STAND AP VANITA ONLY (10/27/2016 5:58 PM CDT) Anatomical Region Laterality Modality Knee Radiographic Shannan ging 10/27/2016 5:58 PM CDT 10/27/2016 5:58 PM CDT Narrative 10/27/2016 6:10 PM CDT [facility] ?? [facility] ?? [place], [place] ? Patient Name: ELZA MCKEON Date of : 1960 ?? Med Rec #: [id number] ??Age/Sex: 56/M ?Pt. Location: ORTHO ?? Attending Provider: DANNY STEINER MD (TRACY) ?? Ordering Provider: DANNY STEINER MD (TRACY) ? Study Date Order Number Procedure ?? 10/27/16 XR Knee Standing Bi ? Signed ? Bilateral knees and right knee ? Exam time: ?? 1538 hours. ? Indications: ?? Follow-up right TKA. Pain. ? Technique: ?? PA weightbearing view of both knees and weightbearing lateral and patellar views of the right knee were obtained. ? Comparison: ?? -Weightbearing PA view of both knees dated 03/09/2016. ?? -Images of the right knee dated 11/26/2015. ? Findings: ?? Bilateral knee arthroplasties are again visualized. No evidence of acute fracture or subluxation. No plain film evidence of significant prosthesis loosening. ? IMPRESSION: ?? Bilateral knee arthroplasties in good apparent alignment. No evidence of acute fracture, subluxation, or significant prosthesis loosening. ? Electronically Signed By: MARIAM HAYNES MD 10/27/16 180 ? Dictated On: 10/27/161757 ?? Interpreted By: MARIAM HAYNES MD ?? Transcribed On: 10/27/161757 - INFCE ?? Procedure Note Stephani Luz MD - 02/08/[address] Patient Name: ELZA MCKEON Date of : 1960 Med Rec #: [id number] Age/Sex: 56/M Pt. Location: ORTHO Attending Provider: DANNY STEINER MD (TRACY) Ordering Provider: DANNY STEINER MD (TRACY) Study Date Order Number Procedure 10/27/16 XR Knee Standing Bi Signed Bilateral knees and right knee Exam time: 1538 hours. Indications: Follow-up right TKA. Pain. Technique: PA weightbearing view of both knees and weightbearing lateral andpatellar views of the right knee were obtained. Comparison: -Weightbearing PA view of both knees dated 03/09/2016. -Images of the right knee dated 11/26/2015. Findings: Bilateral knee arthroplasties are again visualized. No evidence of acutefracture or subluxation. No plain film evidence of significant prosthesis loosening. IMPRESSION: Bilateral knee arthroplasties in good apparent alignment. No evidence ofacute fracture, subluxation, or significant prosthesis loosening. Electronically Signed By: MARIAM HAYNES MD 10/27/161800 Dictated On: 10/27/161757 Interpreted By: MARIAM HAYNES MD Transcribed On: 10/27/161757 - INFCE Danny Steiner MD GENERAL IMAGING Final Result documented in this encounter Visit Diagnoses Not on filedocumented in this encounter Additional Health Concerns Infection Onset Date Last Indicated Resolved Time MRSA Comment:Negative MRSA 05/201903/11/2017 03/11/2017 10/03/2019 10:08 AM CDT documented as of this encounter Care Teams Kiln Burner Relationship Specialty Start Date End [place] [phone] PCP - General FAMILY PRACTICE 10/27/15 12/02/21 [place] [phone] CARDIOVASCULAR DISEASE 10/27/15 10/24/18 [place] [phone] [employer] Account Financial Manager CARDIOVASCULAR DISEASE 08/19/16 Raul [place] [phone] CLINICAL CARDIAC ELECTROPHYSIOLOGY 06/16/17 [place] [address] [address] CARDIOVASCULAR DISEASE 06/16/17 07/10/19 documented as of this encounter
--- OUTSIDE RECORDS SUMMARY | 2024-04-23 04:30 | XMS_ITS | Encounter Summary ---
Author Organization [facility] Address [address] [place] [address]. [place], [place] [address] [place] [address] Care Team Providers Care Ict Sales Assistant Name Role Phone Vernon Mercedes MD Primary Care Provider [phone] Stanislaw Rhodes MD Unavailable Unavailab Evaristo Ying MD Unavailable UnavailRaul Suresh MD Unavailable UnavailMyah Elena NP Unavailable Unavailable Deven Cleary MD Unavailable Unavailable Encounter Details Date Type Department Care Team (Late Contact Info) Description 04/26/2017 Abstract [facility] [address] [place] [address] [place] [address] [place] [phone] Social History Tobacco Use Types Packs/Day Years [...] 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 [address] [place] [address] Ti Bonilla MD [address] [place] [phone] 05/23/2024 3:30 PM RENTAL CLERK Office Visit [facility] [place] [address] Jyoti Escobar MD [address] [place] [address] documented as of this encounter Procedures Procedure Name Priority Date/Time Associated Diagnosis Comments PROSTATE SPECIFIC ANTIGEN,TOTAL Routine 04/26/2017 3:23 PM RENTAL CLERK URINALYSIS Routine 04/26/2017 2:58 PM RENTAL CLERK URINE BACTERIA CULTURE Routine 04/26/2017 2:58 PM RENTAL CLERK documented in this encounter Results * PROSTATE SPECIFIC ANTIGEN,TOTAL (04/26/2017 3:23 PM RENTAL CLERK) PSA 0.31 <4.00 NG/ML 04/26/2017 4:41 PM RENTAL CLERK [facility] SERUM OR PLASMA SPECIMEN / Unknown 04/26/2017 3:23 PM RENTAL CLERK 04/26/2017 3:26 PM RENTAL CLERK us Generic Conversion Md [facility] Final R esult [facility] [address] [place] [address], * CULTURE URINE (04/26/2017 2:58 PM RENTAL CLERK) SPEC DESCRIPTION URINE CLEAN CATCH 04/26/2017 3:02 PM RENTAL CLERK [facility] SPECIAL REQUESTS NO SPECIAL REQUEST 04/26/2017 3:02 PM RENTAL CLERK [facility] CULTURE RESULT NO GROWTH (< OR = 1,000 CFU/ML) 04/27/2017 9:45 PM RENTAL CLERK [facility] URINE SPECIMEN OBTAINED BY CLEAN CATCH PROCEDURE / Unknown 04/26/2017 2:58 PM RENTAL CLERK 04/26/2017 3:15 PM RENTAL CLERK us Generic Conversion Md [facility] - GENERAL ORDERABLES Final Result [facility] [address] [place] [address], [place] [phone] [phone] [facility] [address] [place] [address], [place] [phone] * (ABNORMAL) URINALYSIS (04/26/2017 2:58 PM RENTAL CLERK) COLOR (U) YELLOW 04/26/2017 3:40 PM RENTAL CLERK [facility] TRANSPARENCY CLEAR 04/26/2017 3:40 PM RENTAL CLERK [facility] SPECIFIC GRAVITY (U) 1.020 1.000 - 1.025 04/26/2017 3:40 PM [facility] U PH 5.5 5.0 - 8.0 04/26/2017 3:40 PM [facility] LEUKOCYTES (U) NEGATIVE NEGATIVE 04/26/2017 3:40 PM [facility] NITRITES NEGATIVE NEGATIVE 04/26/2017 3:40 PM [facility] PROTEIN (U) NEGATIVE NEGATIVE 04/26/2017 3:40 PM [facility] URINE GLUCOSE 3+(A) NEGATIVE 04/26/2017 3:40 PM [facility] KETONES MG/DL (U) NEGATIVE NEGATIVE 04/26/2017 3:40 PM [facility] UROBILINOGEN 0.2 <1.0 EU/DL 04/26/2017 3:40 PM [facility] BILIRUBIN (U) NEGATIVE NEGATIVE 04/26/2017 3:40 PM [facility] BLOOD (U) NEGATIVE NEGATIVE 04/26/2017 3:40 PM [facility] WBC/HPF 0-5 0 - 5 /HPF 04/26/2017 3:40 PM [facility] EPI/HPF MODERATE /LPF 04/26/2017 3:40 PM [facility] BACTERIA (U) TRACE /HPF 04/26/2017 3:40 PM RENTAL CLERK [facility] MUCUS PRESENT 04/26/2017 3:40 PM RENTAL CLERK [facility] 04/26/2017 2:58 PM RENTAL CLERK 04/26/2017 3:15 PM RENTAL CLERK us Generic Conversion Md [facility] URINE ORDERABLES Final Result [facility] [address] [place] [address], documented in this encounter Visit Diagnoses Diagnosis Enlarged prostate with lower urinary tract symptoms (LUTS) Hypertrophy of prostate with urinary obstruction and other lower urinary tract symptoms (LUTS) documented in this encounter Additional Health Concerns Infection Onset Date Last Indicated Resolved Time MRSA Comment:Negative MRSA 05/201903/11/2017 03/11/2017 10/03/2019 10:08 AM CDT documented as of this encounter Care Teams Ict Sales Assistant Relationship Specialty Start Date End [place] [phone] PCP - General FAMILY PRACTICE 10/27/15 12/02/21 Stanislaw [place] [address] [phone] CARDIOVASCULAR DISEASE 10/27/15 10/24/18 [place] [phone] [place] Clinical Technologist CARDIOVASCULAR DISEASE 08/19/16 Raul [place] [phone] CLINICAL CARDIAC ELECTROPHYSIOLOGY 06/16/17 My[place] [phone] CARDIOVASCULAR DISEASE 06/16/17 07/10/19 [place] [address] Cosmetics Machine Operator INTERVENTIONAL CARDIOLOGY 03/21/18 10/24/18 documented as of this encounter
--- OUTSIDE RECORDS SUMMARY | 2024-04-23 04:30 | XMS_ITS | Encounter Summary ---
Author Organization [facility] Address [address] [place] [address]. [place], [place] [address] [place] [address] Care Team Providers Care Php Engineer Name Role Phone Vernon Mercedes MD Primary Care Provider [phone] Stanislaw Rhodes MD Unavailable Unavailab Evaristo Ying MD Unavailable Unavailabl e Encounter Details Date Type Department Care Team (Late Contact Info) Description 05/20/2016 Orders Only [place] [address] , Generic Conversion, Social History Tobacco Use [...] (Late Contact Info) Description 04/25/2024 11:00 [address] [facility] [place] [address] Ti Bonilla MD [address] [place] [phone] 05/23/2024 3:30 PM DISHCLOTH FOLDER Office Visit [facility] [address] [place] [address] Jyoti Escobar MD [address] [place] [address] documented as of this encounter Procedures Procedure Name Priority Date/Time Associated Diagnosis Comments MAGNESIUM TIMED 05/20/2016 5:14 AM DISHCLOTH FOLDER documented in this encounter Results * MAGNESIUM (05/20/2016 5:14 AM DISHCLOTH FOLDER) MAGNESIUM 1.6 1.6 - 2.6 MG/DL 05/20/2016 6:01 AM DISHCLOTH FOLDER [facility] SERUM OR PLASMA SPECIMEN / Unknown 05/20/2016 5:14 AM DISHCLOTH FOLDER 05/20/2016 5:26 AM DISHCLOTH FOLDER us Generic Conversion Md [facility] Final R esult [facility] [address] [place] [address], [id number] documented in this encounter Visit Diagnoses Not on filedocumented in this encounter Additional Health Concerns Infection Onset Date Last Indicated Resolved Time MRSA Comment:Negative MRSA 05/201903/11/2017 03/11/2017 10/03/2019 10:08 AM CDT documented as of this encounter Care Teams Php Engineer Relationship Specialty Start Date End Date [place] [address] PCP - General FAMILY PRACTICE 10/27/15 12/02/21 [place] [address] CARDIOVASCULAR DISEASE 10/27/15 10/24/18 [place] [address] [place] Fios Line Installer CARDIOVASCULAR DISEASE 08/19/16 documented as of this encounter
--- OUTSIDE RECORDS SUMMARY | 2024-04-23 04:30 | XMS_ITS | Encounter Summary ---
Author Organization [facility] Address [address] [place] [address]. [place], [place] [address] [place] [address] Care Team Providers Care Community Nurse Name Role Phone Vernon Mercedes MD Primary Care Provider [phone] Stanislaw Rhodes MD Unavailable Unavailab Evaristo Ying MD Unavailable UnavailRaul Suresh MD Unavailable UnavailMyah Elena NP Unavailable Unavailable Deven Cleary MD Unavailable Unavailable Reason for Visit * Reason Onset Date Comments Lab Results 03/20/2018 Encounter Details Date Type Department Care Team (Late st Contact Info) Description 03/20/2018 Telephone [facility] AT [address] [address] Deven Cleary MD Lab Results Social History Tobacco Use Types [...] 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 He was instructed by his PCP to call-in a few blood sugar readings to determine need to adjust insulin dose. Reports that his blood sugar this AM, prior to insulin, was 247. Encouraged to call PCP with readings tomorrow to see if they wish to make changes prior to his procedure on Tuesday. Reminded that he will be stopping Metformin after AM dose on 03/23/2018 and is not to use insulin on the morning of 03/24/18. Informed that Dr. Cleary is aware of the high glucose from 03/20/2018. At this time, procedure has notbeen cancelled. However, if this reading to extremely high on arrival to the produce laborer, they may notbe able to perform the procedure. Patient verbalized understanding and had no further questions 1ST GRADE TEACHER * Pam Baig RN - 03/21/2018 3:19 PM CST Return call received from patient. Informed of glucose level. Also informed that PCP was notified. Advised to contact PCP for instructions. Stressed importance of better control of glucose level prior to the procedure. Understanding verbalized. (lab results to Dr. Cleary's desk) 1ST GRADE TEACHER * Pam Baig RN - 03/21/2018 9:01 AM CST Call placed to Dr. Mercedes's office, primary care physician, to discuss lab results. Return call received from Olivia. Informed that patient is scheduled for coronary intervention in [place] on Tuesday. Labs done yesterday. Glucose was 518. Informed that anesthesia will likely not administer anesthetic with that glucose level. Will discuss with Dr. Cleary, however, procedure may have to be cancelled until blood sugars are better controlled. Understanding verbalized. Olivia will attempt to contact patient. Informed that I did attempt to contact patient yesterday and left a message requesting return call. AIL Baig RN - 03/20/2018 5:02 PM CST Call placed to patient's home telephone number ([phone]). No answer. Message left that I will try to reach at other numbers. Requested return call tomorrow if unsuccessful. Call placed to listed mobile number. Telephone answered by another gentleman who indicates that jaquan is to a [employer] phone and that Evaristo left early today. Call placed to [phone] - number changed or disconnected 1ST GRADE TEACHER * Pam Baig RN - 03/20/2018 4:58 PM CST Call received from lab at [facility]. Patient had BMP ordered for pre-procedure. Per Martha, glucose level is 518. Requested that copy of lab results be sent to primary care physician. Understanding verbalized. Per Martha, BUN is 20 and Creatinine is 1.12. 1ST GRADE TEACHER documented in this encounter Plan of Treatment Upcoming Encounters Date Type Department Care Team (Late st Contact Info) Description 04/25/2024 11:00 AM 1ST GRADE TEACHER Appointment [facility] [address] [place] [address] Ti Bonilla MD [address] [place] [phone] 05/23/2024 3:30 PM 1ST GRADE TEACHER Office Visit [facility] [address] [place] [phone] Jyoti Escobar MD [address] [place] [address] documented as of this encounter Visit Diagnoses Not on filedocumented in this encounter Additional Health Concerns Infection Onset Date Last Indicated Resolved Time MRSA Comment:Negative MRSA 05/201903/11/2017 03/11/2017 10/03/2019 10:08 AM CDT documented as of this encounter Care Teams Community Nurse Relationship Specialty Start Date End Date Vernon Mercedes MD [address] [place] [phone] PCP - General FAMILY PRACTICE 10/27/15 12/02/21 Stanislaw Rhodes MD [address] [place] [address] CARDIOVASCULAR DISEASE 10/27/15 10/24/18 Evaristo Allan MD [address] [place] [address] [place] Computational Scientist CARDIOVASCULAR DISEASE 08/19/16 Raul Santana MD [address] [place] [phone] CLINICAL CARDIAC ELECTROPHYSIOLOGY 06/16/17 Myah Handley, HEALTHCARE TRANSLATOR [address] [place] [phone] CARDIOVASCULAR DISEASE 06/16/17 07/10/19 Deven Cleary MD [address] [place] [phone] Engagement Engineer INTERVENTIONAL CARDIOLOGY 03/21/18 10/24/18 documented as of this encounter
--- OUTSIDE RECORDS SUMMARY | 2024-04-23 04:30 | XMS_ITS | Encounter Summary ---
Author Organization [facility] Address [address] [place] [address]. 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 * Alcie Russell RN - 07/07/2016 9:02 AM CDT Patient called and stated that his had received a call stating that they had moved his appointment up to today at 1:30 in [place]. No clinic noted in [place] and patient scheduled tomorrow in [place]. Please call patient back at [phone] to verify appointment date and time. documented in this encounter Plan of Treatment Upcoming Encounters Date Type Department Care Team (Late st Contact Info) Description 04/25/2024 11:00 AM [address]ER App[address] [facility] [address] [place] [address] Ti Bonilla MD [address] [place] [phone] 05/23/2024 3:30 PM MELTER LOADER Office Visit [facility] [address] [place] [phone] Jyoti Escobar MD [address] [place] [address] documented as of this encounter Visit Diagnoses Not on filedocumented in this encounter Care Teams Data Entry Representative Relationship Specialty Start Date End Date Vernon Mercedes MD [address] [place] [address] PCP - General FAMILY PRACTICE 10/27/15 12/02/21 Stanislaw Rhodes MD [address] [place] [address] CARDIOVASCULAR DISEASE 10/27/15 10/24/18 documented as of this encounter
--- OUTSIDE RECORDS SUMMARY | 2024-04-23 04:30 | XMS_ITS | Encounter Summary ---
Author Organization [facility] Address [address] [place] [address]. 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 [place] [address] Ti Bonilla MD [address] [place] [phone] 05/23/2024 3:30 PM BINDERY MACHINE SETTER Office Visit [facility] [address] [place] [address] Jyoti Escobar MD [address] [place] [address] documented as of this encounter Visit Diagnoses Not on filedocumented in this encounter Additional Health Concerns Infection Onset Date Last Indicated Resolved Time MRSA Comment:Negative MRSA 05/201903/11/2017 03/11/2017 10/03/2019 10:08 AM CDT documented as of this encounter Care Teams Grinder Mill Operator Relationship Specialty Start Date End Date Vernon Mercedes MD [address] [place] [address] PCP - General FAMILY PRACTICE 10/27/15 12/02/21 Stanislaw Rhodes MD [address] [place] [address] CARDIOVASCULAR DISEASE 10/27/15 10/24/18 Evaristo Allan MD [address] [place] [address] [place] Custom Ski Maker CARDIOVASCULAR DISEASE 08/19/16 documented as of this encounter
--- OUTSIDE RECORDS SUMMARY | 2024-04-23 04:30 | XMS_ITS | Encounter Summary ---
Author Organization [facility] Address [address] [place] [address]. [place], [place] [address] [place] [address] Care Team Providers Care South Asian History Professor Name Role Phone Vernon Mercedes MD Primary Care Provider [phone] Stanislaw Rhodes MD Unavailable Unavailab Evaristo Ying MD Unavailable UnavailRaul Suresh MD Unavailable Unavailabl Myah Gee NP Unavailable Unavailable Reason for Visit * Reason Onset Date Comments Letter 08/18/2017 Final Letter Encounter Details Date Type Department Care Team (Late st Contact Info) Description 08/18/2017 Telephone [facility] [address] [place] [address] Raul Santana MD Letter (Final [...] 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 Called/spoke to SHRAVAN Parnell with PCP Vernon Mercedes MD, to verify contact info. Final letter sent. documented in this encounter Plan of Treatment Upcoming Encounters Date Type Department Care Team (Late st Contact Info) Description 04/25/2024 11:00 AM TRANSPORTATION CONSULTANT Appointment [facility] [address] [place] [address] Ti Bonilla MD [address] [place] [phone] 05/23/2024 3:30 PM TRANSPORTATION CONSULTANT Office Visit [facility] [address] [place] [address] Jyoti Escobar MD [address] [place] [phone] documented as of this encounter Visit Diagnoses Not on filedocumented in this encounter Additional Health Concerns Infection Onset Date Last Indicated Resolved Time MRSA Comment:Negative MRSA 05/201903/11/2017 03/11/2017 10/03/2019 10:08 AM CDT documented as of this encounter Care Teams South Asian History Professor Relationship Specialty Start Date End Date Vernon Mercedes MD [address] [place] [address] PCP - General FAMILY PRACTICE 10/27/15 12/02/21 [place] [address] CARDIOVASCULAR DISEASE 10/27/15 10/24/18 [place] [address] [place] Support Service Tech CARDIOVASCULAR DISEASE 08/19/16 [place] [address] CLINICAL CARDIAC ELECTROPHYSIOLOGY 06/16/17 Myah Handley GREEN BUILDING [place] [address] CARDIOVASCULAR DISEASE 06/16/17 07/10/19 documented as of this encounter
--- OUTSIDE RECORDS SUMMARY | 2024-04-23 04:30 | XMS_ITS | Encounter Summary ---
Author Organization [facility] Address [address] [place] [address]. [place], [place] [address] [place] [address] Care Team Providers Care Slipcover Cutter Name Role Phone Ton Mercedes MD Primary Care Provider [phone] Stanislaw Rhodes MD Unavailable Unavailab Evaristo Ying MD Unavailable UnavailRaul Suresh MD Unavailable Unavailabl Myah Gee NP Unavailable Unavailable Reason for Visit * Reason Comments Consult Coronary artery dise ase Encounter Details Date Type Department Care Team (Latest Contact Info) Description 03/06/2018 2:45 PM SOCIAL STUDIES TEACHER Office Visit [facility] AT [address] [address] Deven Cleary MD Consult (Coronary artery disease) Social History Tobacco Use Types Packs/Day Years [...] 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 Not on file Not on file documented as of this encounter Last Filed Vital Signs Vital Sign Reading Time Taken Comments Blood Pressure 118/64 03/06/2018 3:05 PM SOCIAL STUDIES TEACHER Pulse 64 03/06/2018 3:05 PM SOCIAL STUDIES TEACHER Temperature - - Respiratory Rate - - Oxygen Saturation - - Inhaled Oxygen Concentration - - Weight 120.7 kg (266 lb) 03/06/2018 3:05 PM SOCIAL STUDIES TEACHER Height 177.8 cm (5' 10 ) 03/06/2018 3:05 PM SOCIAL STUDIES TEACHER Body Mass Index 38.17 03/06/2018 3:05 PM SOCIAL STUDIES TEACHER documented in this encounter Progress Notes * Deven Cleary MD - 03/06/2018 2:45 PM CST Reason for Visit: No chief complaint on file. History of Present Illness: It was a pleasure to to see your patient, Evaristo Zelaya today in the office. He is a 58-year-old male with Patient Active Problem List Diagnosis ??? Cardiac dysrhythmia ??? Hypertension ??? Paroxysmal atrial fibrillation (HCC) ??? 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 Obstructive sleep apnea ??? Hyperlipidemia ??? Chest pain ??? Diabetes (HCC) ??? 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 He has [place] Cardiovascular Society Class 3 angina despite his current medical regimen (see mediations). The angina is characterized as aching and It does radiate down the left arm. It is marked in severity. The episodes can last a few minutes. The angina is associated with dyspnea. It can be triggered by minimal activity and seems improved by rest and nitroglycerin 1 tablets.He does complain of fatigue and dyspnea with activities. His previous testing suggests viability in the area subtended by his chronic total occlusion. RECOMMENDATIONS: It was great to see Evaristo Zelaya in the office today. As you may know, INTRANET DEVELOPER PCI is very complex and associated with specific benefits and risks inherent to the procedure. I spent considerable time reviewing his previous angiograms as well as his noninvasive testing. I had a long discussion with Evaristo regarding his chronic total occlusion of the RCA. Harvey think he is a candidate for percutaneous coronary intervention. I explained the procedure in detail. I explained that the chance of success is going to be approximately 90%. The chance of major adverse cardiac event is going to be 1-2% or less. We discussed the associated risks of , stroke,myocardial infarction, vascular injury, emergency surgery, perforation, tamponade, acute kidney injury, radiation exposure, et cetera. The benefits as well as the alternatives were discussed too. I spent significant time explaining the complex procedure. I took time and answered all of their questions. He understands all of this and would like to proceed. I will schedule this as soon as possible and hopefully get Evaristo back to a better quality of life. I have also reviewed all of his ongoing cardiovascular issues, our instituted therapies and our surveillance strategies particularly as they interact with and impact the risks of INTRANET DEVELOPER PCI. If any questions remain unanswered or any new questions arise, please do not hesitate to contact me. On behalf of Belkys Overton and Dr Allan, I would like to thank TON MERCEDES MD for allowing us to care for Evaristo Zelaya. Medications: Current Outpatient Medications: ??? amitriptyline 50 [...] CATHETERIZATION 01/04/2018 occluded prox RCA w/well developed [id number] collaterals lvef 55-60% ??? FRACTURE SURGERY ??? [...] file Occupational History ??? 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 Smoking status: Never Smoker [...] ??? Father cancer Review of Systems Constitutional: Positive for fatigue. Negative for recent unintentional weight gain and recent unintentional weight loss. HENT: Negative for headaches. Eyes: Negative for blurred vision. Respiratory: Positive for shortness of breath. Negative for cough and snoring. Cardiovascular: See HPI Positive for chest pain.Negative for palpitations, orthopnea, claudication, leg swelling and PND. Gastrointestinal: Negative for blood in stool and melena. Genitourinary: Negative for hematuria. Musculoskeletal: Negative for myalgias and new or worsening joint stiffness/pain. Skin: Negative for rash. Neurological: Negative for dizziness. Endo/Heme/Allergies: Negative for new or significant bruising/bleeding. Psychiatric/Behavioral: Negative for depression and new or significant memory loss. There were no vitals filed for this visit. There is no height or weight on file to calculate BMI. Physical Exam Constitutional: He is oriented to person, place, and time. He appears well- developed and well-nourished. HENT: Head: Normocephalic and atraumatic. Eyes: Conjunctivae and EOM are normal. Pupils are equal, round, and reactive to light. Neck: Normal range of motion. Neck supple. No JVD present. Cardiovascular: Normal rate and regular rhythm. Pulmonary/Chest: Effort normal and breath sounds normal. He has no wheezes. He has no rales. Abdominal: Soft. Bowel sounds are normal. Musculoskeletal: Normal range of motion. He exhibits no edema. Neurological: He is alert and oriented to person, place, and time. Skin: Skin is warm and dry. Psychiatric: He has a normal mood and affect. His behavior is normal. Diagnoses/Impression: 1. Chronic total occlusion of sleetmute coronary artery 2. 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 (CMS/HCC) Cardiovascular stress test abnormal Other nonspecific abnormal cardiovascular system function study documented in this encounter Additional Health Concerns Infection Onset Date Last Indicated Resolved Time MRSA Comment:Negative MRSA 05/201903/11/2017 03/11/2017 10/03/2019 10:08 AM CDT documented as of this encounter Care Teams Slipcover Cutter Relationship Specialty Start Date End Date Ton Mercedes MD [address] [place] [address] PCP - General FAMILY PRACTICE 10/27/15 12/02/21 [place] [address] CARDIOVASCULAR DISEASE 10/27/15 10/24/18 [place] [address] [place] [address] [place] Damper Maker CARDIOVASCULAR DISEASE 08/19/16 Raul [place] [address] [address] CLINICAL CARDIAC ELECTROPHYSIOLOGY 06/16/17 [place] [address] [place] [address] CARDIOVASCULAR DISEASE 06/16/17 07/10/19 documented as of this encounter
--- OUTSIDE RECORDS SUMMARY | 2024-04-23 04:30 | XMS_ITS | Encounter Summary ---
Author Organization [facility] Address [address] [place] [address]. 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 [address] [place] [address] Ti Bonilla MD [address] [place] [phone] 05/23/2024 3:30 PM EQUIPMENT OILER Office Visit [facility] [address] [place] [address] Jyoti Escobar MD [address] [place] [address] documented as of this encounter Visit Diagnoses Not on filedocumented in this encounter Additional Health Concerns Infection Onset Date Last Indicated Resolved Time MRSA Comment:Negative MRSA 05/201903/11/2017 03/11/2017 10/03/2019 10:08 AM CDT documented as of this encounter Care Teams Assembler Filters Relationship Specialty Start Date End Date [place] [address] PCP - General FAMILY PRACTICE 10/27/15 12/02/21 [place] [address] CARDIOVASCULAR DISEASE 10/27/15 10/24/18 [place] [address] [place] Net Application Support Specialist CARDIOVASCULAR DISEASE 08/19/16 [place] [address] CLINICAL CARDIAC ELECTROPHYSIOLOGY 06/16/17 Myah Handley COSMETIC [place] [address] CARDIOVASCULAR DISEASE 06/16/17 07/10/19 [place] [address] Board Member INTERVENTIONAL CARDIOLOGY 03/21/18 10/24/18 documented as of this encounter
--- OUTSIDE RECORDS SUMMARY | 2024-04-23 04:30 | XMS_ITS | Encounter Summary ---
Author Organization [facility] Address [address] [place] [address]. 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 [place] [address] Ti Bonilla MD [address] [place] [phone] 05/23/2024 3:30 PM PRECINCT COMMANDING OFFICER Office Visit [facility] [address] [place] [address] Jyoti Escobar MD [address] [place] [address] documented as of this encounter Procedures Procedure Name Priority Date/Time Associated Diagnosis Comments PROTHROMBIN TIME, VENOUS TIMED 05/20/2016 5:14 AM PRECINCT COMMANDING OFFICER documented in this encounter Results * (ABNORMAL) PROTIME/INR, VENOUS (05/20/2016 5:14 AM PRECINCT COMMANDING OFFICER) PROTIME 15.5(H) 11.6 - 14.3 SEC 05/20/2016 5:39 AM PRECINCT COMMANDING OFFICER [facility] INR 1.2(H) 0.9 - 1.1 05/20/2016 5:39 AM PRECINCT COMMANDING OFFICER [facility] 05/20/2016 5:14 AM PRECINCT COMMANDING OFFICER 05/20/2016 5:26 AM PRECINCT COMMANDING OFFICER us Generic Conversion Md [facility] Final R esult [facility] [place] [address], [id number] documented in this encounter Visit Diagnoses Not on filedocumented in this encounter Additional Health Concerns Infection Onset Date Last Indicated Resolved Time MRSA Comment:Negative MRSA 05/201903/11/2017 03/11/2017 10/03/2019 10:08 AM CDT documented as of this encounter Care Teams Supervisor Wall Mirror Department Relationship Specialty Start Date End Date Vernon Mercedes MD [address] [place] [phone] PCP - General FAMILY PRACTICE 10/27/15 12/02/21 Stanislaw Rhodes MD [address] [place] [address] CARDIOVASCULAR DISEASE 10/27/15 10/24/18 Evaristo Allan MD [address] [place] [address] [place] Canoe Inspector CARDIOVASCULAR DISEASE 08/19/16 documented as of this encounter
--- OUTSIDE RECORDS SUMMARY | 2024-04-23 04:30 | XMS_ITS | Encounter Summary ---
Author Organization [facility] Address [address] [place] [address]. [place], [place] [address] [place] [address] Care Team Providers Care Manager Administrative Name Role Phone Vernon Mercedes MD Primary Care Provider [phone] Stanislaw Rhodes MD Unavailable Unavailab Evaristo Ying MD Unavailable Unavailabl Raul Duran MD Unavailable Unavailabl Myah Gee NP Unavailable Unavailable Encounter Details Date Type Department Care Team (Late st Contact Info) Description 12/29/2017 Pre-Procedure Call [facility] Nurse Gynecology Pre/Post [address] [place] [address] Barb Leyva RN Social History [...] (Late Contact Info) Description 04/25/2024 11:00 AM VIDEO POKER FLOORMAN Appointment [facility] [address] [facility] [place] [address] Ti Bonilla MD [address] [place] [phone] 05/23/2024 3:30 PM VIDEO POKER FLOORMAN [facility] [address] [place] [address] Jyoti Escobar MD [address] [place] [address] documented as of this encounter Visit Diagnoses Not on filedocumented in this encounter Additional Health Concerns Infection Onset Date Last Indicated Resolved Time MRSA Comment:Negative MRSA 05/201903/11/2017 03/11/2017 10/03/2019 10:08 AM CDT documented as of this encounter Care Teams Manager Administrative Relationship Specialty Start Date End Date Vernon Mercedes MD [address] [place] [address] PCP - General FAMILY PRACTICE 10/27/15 12/02/21 [place] [address] CARDIOVASCULAR DISEASE 10/27/15 10/24/18 [place] [address] [place] Parking Officer CARDIOVASCULAR DISEASE 08/19/16 [place] [address] CLINICAL CARDIAC ELECTROPHYSIOLOGY 06/16/17 [place] [address] CARDIOVASCULAR DISEASE 06/16/17 07/10/19 documented as of this encounter
--- OUTSIDE RECORDS SUMMARY | 2024-04-23 04:30 | XMS_ITS | Encounter Summary ---
Author Organization [facility] Address [address] [place] [address]. 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 [place] [address] Ti Bonilla MD [address] [place] [phone] 05/23/2024 3:30 PM DRUG ENFORCEMENT ADMINISTRATION AGENT Office Visit [facility] [address] [place] [phone] Jyoti Escobar MD [address] [place], [place] [address] documented as of this encounter Procedures Procedure Name Priority Date/Time Associated Diagnosis Comments POCT GLUCOSE - RAMOS DOCKED DEVICE Routine 05/20/2016 8:17 AM DRUG ENFORCEMENT ADMINISTRATION AGENT documented in this encounter Results * (ABNORMAL) POCT glucose (05/20/2016 8:17 AM DRUG ENFORCEMENT ADMINISTRATION AGENT) GLUCOSE POC 162(H) 70 - 109 05/20/2016 8:47 AM DRUG ENFORCEMENT ADMINISTRATION AGENT [facility] ORDERS INTERFACE WHOLE BLOOD SPECIMEN / Unknown 05/20/2016 8:17 AM DRUG ENFORCEMENT ADMINISTRATION AGENT 05/20/2016 8:47 AM DRUG ENFORCEMENT ADMINISTRATION AGENT us Generic Conversion Md [facility] POCT ORDERABLES - DEVIC E Final Result [facility] ORDERS INTERFACE US documented in this encounter Visit Diagnoses Not on filedocumented in this encounter Additional Health Concerns Infection Onset Date Last Indicated Resolved Time MRSA Comment:Negative MRSA 05/201903/11/2017 03/11/2017 10/03/2019 10:08 AM CDT documented as of this encounter Care Teams Neuropsychiatric Aide Relationship Specialty Start Date End Date Vernon Mercedes MD [address] [place] [phone] PCP - General FAMILY PRACTICE 10/27/15 12/02/21 [place] [address] CARDIOVASCULAR DISEASE 10/27/15 10/24/18 E[place] [address] [address] [place] Resource Development Manager CARDIOVASCULAR DISEASE 08/19/16 documented as of this encounter
--- OUTSIDE RECORDS SUMMARY | 2024-04-23 04:30 | XMS_ITS | Encounter Summary ---
Author Organization [facility] Address [address] [place] [address]. 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 [place] [address] Ti Bonilla MD [address] [place] [phone] 05/23/2024 3:30 PM OIL SPRAYING MACHINE OPERATOR Office Visit [facility] [place] [address] Jyoti Escobar MD [address] [place], [place] [phone] documented as of this encounter Procedures Procedure Name Priority Date/Time Associated Diagnosis Comments CBC W/DIFF AUTOMATED TIMED 05/20/2016 5:14 AM OIL SPRAYING MACHINE OPERATOR documented in this encounter Results * (ABNORMAL) CBC W/DIFF AUTOMATED (05/20/2016 5:14 AM OIL SPRAYING MACHINE OPERATOR) WBC 9.3 4.0 - 10.8 x10'3/uL 05/20/2016 5:32 AM [facility] RBC 4.30(L) 4.50 - 6.10 x10'6/uL 05/20/2016 5:32 AM [facility] HGB 11.7(L) 13.0 - 18.0 G/DL 05/20/2016 5:32 AM [facility] HCT 36.8(L) 37.0 - 52.0 % 05/20/2016 5:32 AM [facility] MCV 85.6 78.0 - 100.0 FL 05/20/2016 5:32 AM [facility] MCH 27.2 27.0 - 31.0 PG 05/20/2016 5:32 AM [facility] MCHC 31.8(L) 33.0 - 36.0 G/DL 05/20/2016 5:32 AM [facility] RDW 15.4(H) 11.5 - 14.5 % 05/20/2016 5:32 AM [facility] PLT 234 150 - 350 x10'3/uL 05/20/2016 5:32 AM [facility] MPV 11.5(H) 7.4 - 10.4 FL 05/20/2016 5:32 AM [facility] ABS. NEUTROPHILS TOTAL 6.32 1.60 - 8.30 x10'3/uL 05/20/2016 5:32 AM OIL SPRAYING MACHINE OPERATOR [facility] ABS. LYMPHOCYTES 1.76 0.80 - 4.70 x10'3/uL 05/20/2016 5:32 AM OIL SPRAYING MACHINE OPERATOR [facility] ABS. MONOCYTES 1.02 0.00 - 1.50 x10'3/uL 05/20/2016 5:32 AM OIL SPRAYING MACHINE OPERATOR [facility] ABS. EOSINOPHILS 0.12 0.00 - 0.40 x10'3/uL 05/20/2016 5:32 AM OIL SPRAYING MACHINE OPERATOR [facility] ABS. BASOPHILS 0.06 0.00 - 0.20 x10'3/uL 05/20/2016 5:32 AM OIL SPRAYING MACHINE OPERATOR [facility] ABS. IMMATURE GRANULOCYTES 0.04(H) 0.00 - 0.03 x10'3/uL 05/20/2016 5:32 AM OIL SPRAYING MACHINE OPERATOR [facility] ABS. NUCLEATED RBC'S 0.00 0.0 x10'3/uL 05/20/2016 5:32 AM OIL SPRAYING MACHINE OPERATOR [facility] PLASMA SPECIMEN / Unknown 05/20/2016 5:14 AM OIL SPRAYING MACHINE OPERATOR 05/20/2016 5:26 AM OIL SPRAYING MACHINE OPERATOR us Generic Conversion Md [facility] Final R esult [facility] [place] [address], [id number] documented in this encounter Visit Diagnoses Not on filedocumented in this encounter Additional Health Concerns Infection Onset Date Last Indicated Resolved Time MRSA Comment:Negative MRSA 05/201903/11/2017 03/11/2017 10/03/2019 10:08 AM CDT documented as of this encounter Care Teams Missile Mechanic Relationship Specialty Start Date End Date Vernon Mercedes MD [address] [place] [phone] PCP - General FAMILY PRACTICE 10/27/15 12/02/21 Stanislaw Rhodes MD [address] [place] [address] CARDIOVASCULAR DISEASE 10/27/15 10/24/18 Evaristo Allan MD [address] [place] [address] [place] Horticultural Specialty Grower CARDIOVASCULAR DISEASE 08/19/16 documented as of this encounter
--- OUTSIDE RECORDS SUMMARY | 2024-04-23 04:30 | XMS_ITS | Encounter Summary ---
Author Organization [facility] Address [address] [place] [address]. [place], [place] [address] [place] [address] Care Team Providers Care Patient Clerical Assistant Name Role Phone Vernon Mercedes MD Primary Care Provider [phone] Stanislaw Rhodes MD Unavailable Unavailab Evaristo Ying MD Unavailable Unavailabl Raul Duran MD Unavailable Unavailabl Myah Gee NP Unavailable Unavailable Reason for Visit * Reason Onset Date Comments Returned Call 02/15/2018 Encounter Details Date Type Department Care Team (Late st Contact Info) Description 02/15/2018 Telephone [facility] [address] [address] Deven Cleary MD Returned Call Social History Tobacco Use Types Packs/Day [...] 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 Appointment scheduled for INTERACTIVE ACCOUNT MANAGER consultation on 03/08/2018 at the [facility]. Subsequent call received and reports that he has to have his at the airport on that day. Appointment reschedule and confirmed. Reminder letter sent documented in this encounter Plan of Treatment Upcoming Encounters Date Type Department Care Team (Late st Contact Info) Description 04/25/2024 11:00 AM DINKEY ENGINE OPERATOR Appointment [facility] [address] [place] [address] Ti Bonilla MD [address] [place] [phone] 05/23/2024 3:30 PM DINKEY ENGINE OPERATOR Office Visit [facility] [address] [place] [phone] Jyoti Escobar MD [address] [place] [phone] documented as of this encounter Visit Diagnoses Not on filedocumented in this encounter Additional Health Concerns Infection Onset Date Last Indicated Resolved Time MRSA Comment:Negative MRSA 05/201903/11/2017 03/11/2017 10/03/2019 10:08 AM CDT documented as of this encounter Care Teams Patient Clerical Assistant Relationship Specialty Start Date End Date Vernon Mercedes MD [address] [place] [address] PCP - General FAMILY PRACTICE 10/27/15 12/02/21 [place] [address] CARDIOVASCULAR DISEASE 10/27/15 10/24/18 [place] [address] [place] Phlebotomy Manager CARDIOVASCULAR DISEASE 08/19/16 [place] [address] CLINICAL CARDIAC ELECTROPHYSIOLOGY 06/16/17 Myah Handley TOOL [place]IGN [place] [address] CARDIOVASCULAR DISEASE 06/16/17 07/10/19 documented as of this encounter
--- OUTSIDE RECORDS SUMMARY | 2024-04-23 04:30 | XMS_ITS | Encounter Summary ---
Author Organization [facility] Address [address] [place] [address]. 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 Patient will continue with Pradaxa. * Johanny Bell RN - 06/30/2016 10:34 AM CDT Katie with [facility] in [place] called to talk with Dr. Santana office. Katie states pt's ins will not cover Pradaxa however it will cover Xarelto. Katie requests call back to [phone] documented in this encounter Plan of Treatment Upcoming Encounters Date Type Department Care Team (Late st Contact Info) Description 04/25/2024 11:00 AM WASTE CHOPPER Appointment [facility] [address] [place] [address] Ti Bonilla MD [address] [place] [phone] 05/23/2024 3:30 PM WASTE CHOPPER Office Visit [facility] [address] [place] [address] Jyoti Escobar MD [address] [place] [phone] documented as of this encounter Visit Diagnoses Not on filedocumented in this encounter Care Teams Power Project Manager Relationship Specialty Start Date End Date Vernon Mercedes MD [address] [place] [address] PCP - General FAMILY PRACTICE 10/27/15 12/02/21 Stanislaw Rhodes MD [address] [place] [address] CARDIOVASCULAR DISEASE 10/27/15 10/24/18 documented as of this encounter
--- OUTSIDE RECORDS SUMMARY | 2024-04-23 04:30 | XMS_ITS | Encounter Summary ---
Author Organization [facility] Address [address] [place] [address]. [place], [place] [id number] [place] [id number] Care Team Providers Care Document Examiner Name Role Phone Ton Mercedes MD Primary Care Provider [phone] Stanislaw Rhodes MD Unavailable Unavailab Elza Ying MD Unavailable UnavailRaul Suresh MD Unavailable Unavailabl Myah Gee NP Unavailable Unavailable Reason for Referral * Imaging (Routine) - Closed Specialty Diagnoses / Procedures Referred By Conttianna t Referred To Contact CARDIOLOGY Diagnoses Angina effort (CMS/HCC) Abnormal stress test Diabetes (CMS/HCC HHS/HCC) Hyperlipidemia Procedures XA [facility] Elza Hankins MD [address] [place] [address] [place] [address] [place] [address] Phone: tel: fax: Referral ID Status Reason Start Date Expiration Date Visits Re quested Visits Authorized [id number] Closed 12/29/2017 04/14/2018 1 1 Reason for Visit * Imaging (Routine) - Closed Specialty Diagnoses / Procedures Referred By Charito ledbetter Referred To Contact CARDIOLOGY Diagnoses Angina effort (CMS/HCC) Abnormal stress test Diabetes (CMS/HCC HHS/HCC) Hyperlipidemia Procedures [facility]A [facility] Elza Hankins MD [address] [place] [address] [place] [address] [place] [address] Phone: tel: fax: Referral ID Status Reason Start Date Expiration Date Visits Re quested Visits Authorized [id number] Closed 12/29/2017 04/14/2018 1 1 Encounter Details Date Type Department Care Team (Latest Contact Info) Description 01/04/2018 11:15 AM CDT - 01/04/2018 4:46 PM CDT Hospital Encounter 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 Not on file Not on file documented as of this encounter Last Filed Vital Signs Vital Sign Reading Time Taken Comments Blood Pressure 120/77 01/04/2018 11:00 AM CDT Pulse 77 01/04/2018 11:00 AM CDT Temperature 36.4 ??C (97.5 ??F) 01/04/2018 1 1:00 AM CDT Respiratory Rate 18 01/04/2018 11:0 0 AM CDT Oxygen Saturation 97% 01/04/2018 11: 00 AM CDT Inhaled Oxygen Concentration - - Weight 119.2 kg (262 lb 12.6 oz) 2017 11:00 AM CDT Height 177 cm (5' 9.69 ) 01/04/2018 11: 00 AM CDT Body Mass Index 38.05 01/04/2018 11:00 AM CDT documented in this encounter Discharge Summaries * Elza Allan MD - 01/04/2018 2:40 PM CDT Physician Discharge Summary Patient ID: Elza Mckeon [id number] 58-year-old 1960 Admit date: 01/04/2018 Expected Discharge Date: 01/04/2018 Admitting Physician: Elza Allan MD Discharge Diagnoses: 1. CAD 2. Paroxysmal Afib 3. HTN 4. Hyperlipidemia 5. SARAI 6. Diabetes mellitus -- type II. Discharged Condition: Stable Indication for Admission: Abnormal ANST Hospital Course: Mr Mckeon underwent cardiac catheterization today following an abnormal Adenosine nuclear stress test. He was found to have an occluded prox RCA with well developed [id number] collaterals. Left ventriculography showed preserved LVEF 55-60%. Given the present coronary anatomy, medical therapy with aggressive cardiac risk factor modification was recommended. His B-blockade was increased and Imdur added to his medical regimen. 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 Code Status: Full Procedures: Procedures (From admission, onward) ECG 12-LEAD STAT XA C POSS Routine Disposition: Home Patient Instructions: Current Discharge Medication List START taking these medications Details isosorbide mononitrate ER (IMDUR) 30 MG 24 hr tablet Take 1 tablet (30 mg total) by mouth daily. Qty: 30 tablet, Refills: 5 nitroglycerin 0.[address] 1 tablet (0.4 mg total) under the tongue every 5 (five) minutes as needed for Chest Pain. Qty: 25 tablet, Refills: 1 CONTINUE these medications which have CHANGED Details metoprolol succinate 50 MG 24 hr tablet Take 1 tablet (50 mg total) by mouth 2 (two) times a day. Qty: 60 tablet, Refills: 5 CONTINUE these medications which have NOT CHANGED Details amitriptyline 50 MG tablet Take 50 mg by mouth nightly at bedtime. atorvastatin 40 MG tablet Take 40 mg by mouth daily. furosemide 20 MG tablet metFORMIN 850 MG tablet Take 850 mg by mouth 2 (two) times daily with meals. ranitidine 150 MG tablet Take 150 mg by mouth 2 (two) times daily. spironolactone 25 MG tablet Take 25 mg by mouth daily. tamsulosin 0.4 MG Cap Take 0.4 mg by mouth daily. traMADol 50 MG tablet Take 50 mg by mouth every 6 (six) hours as needed for Pain. aspirin EC 81 MG EC tablet Take 1 tablet (81 mg total) by mouth daily. Qty: 90 tablet, Refills: 0 dabigatran 150 MG Cap Take 1 capsule (150 mg total) by mouth 2 (two) times daily. Qty: 180 capsule, Refills: 3 HUMALOG 100 UNIT/ML injection (VIAL) Inject 15 Units into the skin nightly at bedtime. LEVEMIR 100 UNIT/ML injection Inject 15 Units into the skin 3 (three) times daily with meals. Activity: as directed. Diet: cardiac/diabetic Wound Care: as directed. Follow-up with Dr Allan in [facility] in 1 month. Signed: ELZA ALLAN MD 01/04/2018 2:40 PM documented in this encounter Discharge Instructions * Discharge Instructions* Trina Jean Baptiste RN - 01/04/2018 3:14 PM CDT For the next 24 hours: no driving a vehicle no alcoholic beverages no signing any legal documents no taking any medications that may cause drowsiness Hold Metformin containing medications for 48 hours Discharge Instructions After Your Cath/Stent Procedure GROIN PROCEDURE: If your procedure was performed through your groin, avoid lifting (no more than 5 pounds), squatting, and heavy activity for 3 days. Try to avoid coughing, sneezing, and straining with a bowel movement over the next 24 hours. If you must do so, apply direct pressure to the site with your fingers to protect it. WRIST PROCEDURE: If your procedure was performed through the wrist, avoid lifting (no more than 5 pounds with that arm) and heavy activity for 2 days. YOU MAY NOT DRIVE YOURSELF HOME THE DAY OF YOUR PROCEDURE. During the procedure you were given sedation that can affect your judgement. As the passenger, it is important to take a break every 60-90 minutes during the trip home to stretch your legs. FATIGUE AND WEAKNESS: It is normal to have some fatigue and weakness for a day or so after your procedure. This is due to the sedation used for the procedure and the bedrest during your hospital stay. SITE CARE: Remove the dressing from your procedure site the next day. You may want to remove the dressing in the shower, allowing the dressing to become wet but keeping the direct force of the water away from the site. Pat the site dry after your shower. You may shower, but do not sit in a bath tub, hot tub, or swim for 3-4 days. It is not necessary to keep the area covered. You should, however, keep it clean and dry for 3-4 days. It is common to feel a pea-sized knot at the site of your groin procedure for several weeks. CALL OUR OFFICE IF YOU NOTICE: - Swelling at the site of your procedure - Increased pain at the site - Fever (greater than 101 degrees) - Any signs of infection at the site such as redness or drainage BRUISING: Bruising at the cath site is not unusual. The discoloration may spread down your leg or arm and take several weeks to completely disappear. This is acceptable as long as there is no swelling or increased pain at the site. Soreness is not uncommon. Take Tylenol for pain. BLEEDING: If site begins to bleed. THIS IS AN EMERGENCY. You should lay flat and hold pressure directly to site or have someone else hold firm pressure. You need to try to get the bleeding to stop. CALL [address] TO THE ER. DO NOT HAVE SOMEONE DRIVE YOU. IF YOU FEEL THAT YOU NEED IMMEDIATE ATTENTION, GO TO THE NEAREST EMERGENCY ROOM OR CALL 911. See your family doctor in 10-14 days or sooner if you have problems. Your procedure results will besent to your doctor. See your professor of communication arts as directed. Continue medications as directed. Our office is open Tuesday through Tuesday from 8:00am to 4:30 pm, if you have general questions or if you need to schedule an appointment. Call at [phone] documented in this encounter Medications at Time of Discharge amitriptyline 50 MG tablet Take 50 mg by mouth nightly at bedtime. 12/23/2020 aspirin EC 81 MG EC tablet Take 1 tablet (81 mg total) by mouth daily. 90 tablet 12/29/2017 03/29/2018 atorvastatin 40 MG tablet Take 0.5 tablets (20 mg total) by mouth nightly at bedtime. 12/26/2023 dabigatran 150 MG Cap Take 1 capsule (150 mg total) by mouth 2 (two) times daily. 180 capsule 3 04/15/2017 04/15/2018 furosemide 20 MG tablet Take 20 mg by mouth daily. 01/28/2017 08/28/2021 HUMALOG 100 UNIT/ML injection (VIAL) Inject 32 Units into the skin 3 (three) times daily before meals. 12/29/2017 09/28/2019 isosorbide mononitrate ER (IMDUR) 30 MG 24 hr tablet Take 1 tablet (30 mg total) by mouth daily. 30 tablet 5 01/04/2018 06/28/2018 LEVEMIR 100 UNIT/ML injection Inject 44 Units into the skin nightly at bedtime. 12/29/2017 06/30/2023 metFORMIN 850 MG tablet Take 850 mg by mouth 2 (two) times daily with meals. 10/16/2018 metoprolol succinate 50 MG 24 hr tablet Take 1 tablet (50 mg total) by mouth 2 (two) times a day. 60 tablet 5 01/04/2018 07/29/2018 nitroglycerin 0.[address] 1 [...] Pain. 10/18/2019 documented as of this encounter H&P Notes * Elza Allan MD - 01/04/2018 12:03 PM CDT HISTORY OF PRESENT ILLNESS: Mr. Mckeon is seen in the [facility] today for reevaluation of his cardiac status. He reports that he has been having some difficulties with chest discomfort. ?? Mr. Mckeon reports that he has been having this [...] radiation of the discomfort to his back. ?? Mr. Mckeon' cardiac risk factors for coronary artery disease include a history of diabetes mellitus,hypertension, and hyperlipidemia. He denies any family history of coronary artery disease or myocardial infarction and has no history of tobacco abuse. He does report a history of sleep apnea for which he is treated with a CPAP, which has been well tolerated. ?? Mr. Mckeon underwent an echocardiogram in June of 2016 and this revealed a well- preserved overall left ventricular systolic function with a calculated LVEF of 63%. There was mild tricuspid regurgitation with a peak pulmonary artery systolic pressure estimated to be 37 mmHg. ?? Mr. Mckeon' recent evaluation included laboratory. Cardiac enzymes were negative for myocardial infarction. A CBC showed a serum hemoglobin of 11.4 and hematocrit 35.0 with a normal white blood cell count. Serum electrolytes showed a serum potassium of 4.0 with a BUN of 14 and creatinine 0.99. A serum BNP level was within normal limits at 81. Serum albumin was reduced somewhat at 3.3. ?? RECOMMENDATIONS AND PLAN: The exact etiology of Mr. Durand chest pain syndrome is unclear as it hasboth typical and atypical features. Given his cardiac risk factors for coronary artery disease and in particular his diabetes mellitus, the chest pain is somewhat bothersome and we must rule out the presence of underlying coronary artery disease. Further evaluation and treatment is warranted. ?? After a long discussion in the clinic, I have recommended the following to Mr. Mckeon: 1. Continue present medical regimen without alteration. We will not initiate Aspirin antiplatelet therapy at this time as he is taking Pradaxa anticoagulation, but he will continue his statin therapy. 2. Adenosine nuclear stress test to rule out ongoing myocardial ischemia. Mr. Mckeon has been screened in the past using a pharmacologic nuclear stress testing when he has had chest pain syndromes in the past. Further evaluation and treatment will be based on the results of the stress testing. 3. Annual followup in the cardiology clinic. I have encouraged Mr. Mckeon to contact me in the meantime should he have any questions or problems. ?? Marcelle Madden RN at 12/15/2017 10:30 AM Status: Signed Expand All Collapse All Reason for Visit: Consult and Chest Pain ?? Medications: Current Outpatient Prescriptions: ??? amitriptyline 50 [...] Rfl: Allergies Allergen Reactions ??? Doxycycline Unknown ?? Past??Medical??History Past Medical History: Diagnosis Date ??? Arthritis ? Diabetes ? GERD (gastroesophageal reflux disease) ? Hyperlipidemia ? Hypertension ? has had elevated B/P readings ??? SARAI on CPAP ? Paroxysmal atrial fibrillation ? Past??Surgical??History Past Surgical History: Procedure Laterality Date ??? HERNIA REPAIR ? KNEE ARTHROPLASTY ? XA ABLATION ?? 05/19/2016 ?? Social History ?? Social History ??? Marital status: ? Spouse name: N/A ??? Number of children: 1 ??? Years of education: N/A ?? 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 Social History Main Topics ??? Smoking status: Never Smoker ??? Smokeless tobacco: Never Used ??? Alcohol use Yes ??? Drug use: No ??? Sexual activity: Not Asked ?? Other Topics Concern ??? Exercise Yes ? walking ??? Special Diet No ??? Caffeine Concern Yes ?? Social History Narrative ?? Family??History No family history on file. Family Status Relation Status ??? Mother Alive ??? Sister Alive ??? Brother Alive ??? Brother ??? Sister Alive ??? Father ?? cancer ? Review of Systems Constitutional: Negative for recent [...] depression and new or significant memory loss. ? Filed Vitals: ?? 12/16/17 0901 BP: 128/84 Resp: 18 SpO2: 98% Weight: 127.9 kg (282 lb) Height: 5' 10 (1.778 m) ?? Body mass index is 40.46 kg/(m^2). ?? Physical Exam Constitutional: overweight Cardiovascular: Decrease pedal pulses bilateral Musculoskeletal: No chest wall tenderness ? Diagnoses/Impression: 1. Paroxysmal atrial fibrillation ?? 2. Mixed hyperlipidemia ?? 3. Essential hypertension ?? 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 5. Obstructive sleep apnea ? Referring Provider: No ref. provider found PCP: TON MERCEDES MD [facility] NOTE: I have reviewed Elza Mckeon History & Physical which was performed within the past 30 days. After examining Elza Mckeon, no change has occurred in the patient's condition since the H&P was completed. Informed Consent Discussion: Risks, benefits, alternatives as well as the consequences of not performing the surgery/procedure were discussed with the patient and/or family/personal circulation sales representative. Questions were answered and the patient/family/personal circulation sales representative verbalized understanding and desires to proceed. documented in this encounter OR Notes * Brief Op Note - Elza Allan MD - 01/04/2018 2:14 PM CDT General Procedure Op Note Procedure Note Elza Mckeon 01/04/2018 Procedure: Cardiac catheterization Pre-Op Diagnosis: Abnormal ANST Post-Op Diagnosis: CAD Findings: 1. CAD with occluded prox RCA with well developed collaterals from the left coronary system. 2. LVEF 55-60%. Specimen(s) Removed: None Anesthesia: Local and Procedural Surgeon: Jerrell Trekking Guide: None Estimated Blood Loss: Minimal ELZA ALLAN MD Date: 01/04/2018 Time: 2:19 PM documented in this encounter Plan of Treatment Upcoming Encounters Date Type Department Care Team (Late st Contact Info) Description 04/25/2024 11:00 AM CDL PROGRAM COORDINATOR Appointment [facility] [address] [place] [address] [place] [address] Ti Bonilla MD [address] [place] [phone] 05/23/2024 3:30 PM CDL PROGRAM COORDINATOR Office Visit [facility] [address] [place] [address] [place] [address] Jyoti Escobar MD [address] [place] [address] documented as of this encounter Procedures Procedure Name Priority Date/Time Associated Diagnosis Comments XA [facility] POSS Routine 01/04/2018 2:05 PM CDT Angina effort (HCC) Abnormal stress test Diabetes (CMS/HCC HHS/HCC) Hyperlipidemia POCT GLUCOSE - RAMOS DOCKED DEVICE Routine 01/04/2018 12:15 PM CDT ECG 12-LEAD STAT 01/04/2018 12:11 PM CDT documented in this encounter Results * XA C POSS (01/04/2018 2:05 PM CDT) Anatomical Region Laterality Modality Cardiac Delivery Man 01/04/2018 1:30 PM CDT us Elza Allan MD AERIAL SPRAYER Final Resul t * (ABNORMAL) POCT glucose (01/04/2018 12:15 PM CDT) GLUCOSE POC 231(H) 70 - 109 01/04/2018 12:19 PM CDT [facility] INTERFACE 01/04/2018 12:1 5 PM CDT us Elza Allan MD POCT ORDERABLES - DEVICE Fi nal Result [facility] INTERFACE US * ECG 12 lead (01/04/2018 12:11 PM CDT) 01/04/2018 12:1 1 PM CDT Narrative [facility] - 01/04/2018 1:47 PM CDT ? [facility] ? [address] [place], [place] ??[address] ? Test Date: ?2018-01-04 Pat Name: ? ELZA MCKEON ? Department: ?? 1 ? Room: ? [facility] Gender: ? Male ? Mat Man: ?? CE : ?1960 ? Requested By: ELZA ALLAN Order Number: [id number] ? Reading MD: ?? Edwar Evans ? Measurements Intervals ?[place] ? Rate: ? 68 ? P: ?74 [place]: ? 138 ?QRS: ?31 QRSD: ? 108 ?T: ?-1 QT: ? 408 ? QTc: ?436 ? Interpretive Statements SINUS RHYTHM WITH SINUS ARRHYTHMIA LOW QRS VOLTAGE IN PRECORDIAL LEADS INCOMPLETE RIGHT BUNDLE BRANCH BLOCK Procedure Note Edwar Evans MD - 01/04/2018 [facility] [address] [place] [address] Test Date: 2018-01-04 Pat Name: ELZA MCKEON Department: 1 Room: [facility] Gender: Male Mat Man: EDNA : 1960 Requested By: ELZA ALLAN Order Number: [id number] Jose Antonio MD: Edwar Evans Measurements Intervals [place] Rate: 68 P: 74 [place]: 138 QRS: 31 QRSD: 108 T: -1 QT: 408 QTc: 436 Interpretive Statements SINUS RHYTHM WITH SINUS ARRHYTHMIA LOW QRS VOLTAGE IN PRECORDIAL LEADS INCOMPLETE RIGHT BUNDLE BRANCH BLOCK us Elza Allan MD ECG ORDERABLES Final Resul t [facility] documented in this encounter Visit Diagnoses Diagnosis Angina effort ([facility]) Other and unspecified angina pectoris Abnormal stress test Other nonspecific abnormal cardiovascular system function study Diabetes ([facility]) Hyperlipidemia Other and unspecified hyperlipidemia documented in this encounter Administered Medications Inactive Administered Medications - up to 3 most recent administrations Medication Order MAR Action Action Date Dose Rate Site acetaminophen (TYLENOL) tablet 650 mg 650 mg, Oral, Every 4 hours PRN, Mild pain (Scale 1 - 3), Starting on Tue01/04/18 at 1148, Until Tue01/04/18 at 1846, Maximum dose of acetaminophen is 4000 mg from all sources in 24 hours., Pre-Op nitroglycerin (NITROSTAT) SL tablet 0.4 mg 0.4 mg, Sublingual, Every 5 min PRN, Chest Pain, 3 doses, Starting on Tue01/04/18 at 1148, Until Tue01/04/18 at 1846, Notify provider if pain not relieved by one tablet. Hold for SBP less than 90 mmHg., Pre-Op ondansetron (ZOFRAN) injection 4 mg 4 mg, Intravenous, Every 4 hours PRN, Nausea, Vomiting, Starting on Tue01/04/18 at 1148, Until Tue01/04/18 at 1846, Pre-Op documented in this encounter Active and Recently Administered Medications Times are shown in CDT. PRN Medication Order 2018 01/03/2018 01/04/2018 acetaminophen (TYLENOL) tablet 650 mg 650 mg, Oral, Every 4 hours PRN, Mild pain (Scale 1 - 3), Starting on Tue01/04/18 at 1148, Until Tue01/04/18 at 1846, Maximum dose of acetaminophen is 4000 mg from all sources in 24 hours., Pre-Op nitroglycerin (NITROSTAT) SL tablet 0.4 mg 0.4 mg, Sublingual, Every 5 min PRN, Chest Pain, 3 doses, Starting on Tue01/04/18 at 1148, Until Tue01/04/18 at 1846, Notify provider if pain not relieved by one tablet. Hold for SBP less than 90 mmHg., Pre-Op ondansetron (ZOFRAN) injection 4 mg 4 mg, Intravenous, Every 4 hours PRN, Nausea, Vomiting, Starting on Tue01/04/18 at 1148, Until Tue01/04/18 at 1846, Pre-Op documented in this encounter Additional Health Concerns Infection Onset Date Last Indicated Resolved Time MRSA Comment:Negative MRSA 05/201903/11/2017 03/11/2017 10/03/2019 10:08 AM CDT documented as of this encounter Care Teams Document Examiner Relationship Specialty Start Date End Date Ton Mercedes MD [address] [place] [phone] PCP - General FAMILY PRACTICE 10/27/15 12/02/21 Stanislaw Rhodes MD [address] [place] [phone] CARDIOVASCULAR DISEASE 10/27/15 10/24/18 Elza Allan [place] [phone] [place] CARDIOVASCULAR DISEASE 08/19/16 Raul Sant[place] [address] [phone] CLINICAL CARDIAC ELECTROPHYSIOLOGY 06/16/17 [place] [phone] CARDIOVASCULAR DISEASE 06/16/17 07/10/19 documented as of this encounter
--- OUTSIDE RECORDS SUMMARY | 2024-04-23 04:30 | XMS_ITS | Encounter Summary ---
Author Organization [facility] Address [address] [place] [address]. [place], [place] [address] [place] [address] Care Team Providers Care Appeals Manager Name Role Phone Vernon Mercedes MD Primary Care Provider [phone] Stanislaw Rhodes MD Unavailable Unavailab Evaristo Ying MD Unavailable UnavailRaul Suresh MD Unavailable UnavailMyah Elena NP Unavailable Unavailable Deven Cleary MD Unavailable Unavailable Encounter Details Date Type Department Care Team (Late Contact Info) Description 11/17/2016 Abstract [facility] [address] [place] [address] Vernon Mercedes MD [address] [place] [address] Social History Tobacco Use Types [...] (Late Contact Info) Description 04/25/2024 11:00 AM WIRE COATING OPERATOR METAL Appointment [facility] [address] [place] [address] Ti Bonilla MD [address] [place] [address] 05/23/2024 3:30 PM WIRE COATING OPERATOR METAL Office Visit [facility] [place] [address] Jyoti Escobar MD [address] [place] [address] documented as of this encounter Procedures Procedure Name Priority Date/Time Associated Diagnosis Comments VANCOMYCIN TROUGH TIMED 11/19/2016 6:2 5 AM CDT BASIC METABOLIC PANEL Routine 11/19/2016 6:25 AM CDT CBC W/DIFF AUTOMATED Routine 11/19/2016 6:25 AM CDT GLUCOSE BLOOD, QNT Routine 11/19/2016 5: 31 AM CDT GLUCOSE BLOOD, QNT Routine 11/18/2016 8: 29 PM CDT GLUCOSE BLOOD, QNT Routine 11/18/2016 4: 21 PM CDT GLUCOSE BLOOD, QNT Routine 11/18/2016 11 :09 AM CDT GLUCOSE BLOOD, QNT Routine 11/18/2016 5: 11 AM CDT GLUCOSE BLOOD, QNT Routine 11/17/2016 8: 53 PM CDT CULTURE, BACTERIA, BLOOD STAT 11/17/2016 3:17 PM CDT COMPREHENSIVE METABOLIC PANEL STAT 11/17/2016 3:15 PM CDT LACTIC ACID STAT 11/17/2016 3:15 PM CDT D-DIMER, QUANTITATIVE STAT 11/17/2016 3:15 PM CDT CULTURE, BACTERIA, BLOOD STAT 11/17/2016 3:15 PM CDT CBC W/DIFF AUTOMATED STAT 11/17/2016 3:15 PM CDT documented in this encounter Results * VANCOMYCIN TROUGH (11/19/2016 6:25 AM CDT) VANCOMYCIN TROUGH 12.4 10.0 - 15.0 MCG/ML 11/19/2016 6:52 AM CDT [facility] SERUM OR PLASMA SPECIMEN / Unknown 11/19/2016 6:25 AM CDT 11/19/2016 6:33 AM CDT us Generic Conversion Md [facility] Final R esult [facility] [address] [place] [address], * (ABNORMAL) CBC W/DIFF AUTOMATED (11/19/2016 6:25 AM CDT) WBC 6.0 4.5 - 10.8 x10'3/uL 11/19/2016 6:36 AM CDT [facility] RBC 4.12(L) 4.50 - 6.10 x10'6/uL 11/19/2016 6:36 AM CDT [facility] HGB 11.7(L) 13.0 - 18.0 G/DL 11/19/2016 6:36 AM CDT [facility] HCT 35.7(L) 37.0 - 52.0 % 11/19/2016 6:36 AM CDT [facility] MCV 86.7 78.0 - 100.0 FL 11/19/2016 6:36 AM CDT [facility] MCH 28.4 27.0 - 31.0 PG 11/19/2016 6:36 AM CDT [facility] MCHC 32.8(L) 33.0 - 36.0 G/DL 11/19/2016 6:36 AM CDT [facility] RDW 13.8 11.5 - 14.5 % 11/19/2016 6:36 AM CDT [facility] PLT 239 150 - 350 x10'3/uL 11/19/2016 6:36 AM CDT [facility] MPV 10.9(H) 7.4 - 10.4 FL 11/19/2016 6:36 AM CDT [facility] SEG NEUTROPHILS 60.3 % 7 6:36 AM CDT [facility] LYMPHOCYTES 24.7 % 11/19/2016 6:36 AM CDT [facility] MONOCYTES 11.9 % 11/19/2016 6:36 AM CDT [facility] EOSINOPHILS 1.5 % 11/19/2016 6:36 AM CDT [facility] BASOPHILS 0.8 % 11/19/2016 6:36 AM CDT [facility] IMMATURE GRANS % 0.8 % 11/20/19 17 6:36 AM CDT [facility] NRBC 0.0 % 11/19/2016 6:36 AM CDT [facility] ABS. NEUTROPHILS 3.63 1.60 - 8.30 x10'3/uL 11/19/2016 6:36 AM CDT [facility] ABS. LYMPHOCYTES 1.49 0.80 - 4.70 x10'3/uL 11/19/2016 6:36 AM CDT [facility] ABS. MONOCYTES 0.72 0.00 - 1.50 x10'3/uL 11/19/2016 6:36 AM CDT [facility] ABS. EOSINOPHILS 0.09 0.00 - 0.40 x10'3/uL 11/19/2016 6:36 AM CDT [facility] ABS. BASOPHILS 0.05 0.00 - 0.20 x10'3/uL 11/19/2016 6:36 AM CDT [facility] ABS. IMMATURE GRANULOCYTES 0.05(H) 0.00 - 0.03 x10'3/uL 11/19/2016 6:36 AM CDT [facility] ABS. NUCLEATED RBC'S 0.00 0.00 x10'3/uL 11/19/2016 6:36 AM CDT [facility] OTHER (type in comments) 11/19/2016 6:25 AM CDT 11/19/2016 6:33 AM CDT Comment:WHOLE BLOOD SAMPLE us Generic Conversion Md [facility] Final R esult [facility] [address] [place] [address], * (ABNORMAL) BASIC METABOLIC PANEL (11/19/2016 6:25 AM CDT) GLUCOSE 175(H) 70 - 99 MG/DL 11/19/2016 6:52 AM CDT [facility] BUN 11 8 - 26 MG/DL 11/19/2016 6:52 AM CDT [facility] CREATININE S/P/B 0.88 0.72 - 1.25 MG/DL 11/19/2016 6:52 AM CDT [facility] SODIUM S/P/B 139 136 - 145 MMOL/L 11/19/2016 6:52 AM CDT [facility] POTASSIUM S/P/B 4.4 3.5 - 5.1 MMOL/L 11/19/2016 6:52 AM CDT [facility] CHLORIDE S/P/B 107 98 - 107 MMOL/L 11/19/2016 6:52 AM CDT [facility] CO2 24.0 22.0 - 29.0 MMOL/L 11/19/2016 6:52 AM CDT [facility] CALCIUM S/P/B 8.8 8.4 - 10.2 MG/DL 11/19/2016 6:52 AM CDT [facility] EGFR NON-AFR. AMER. >60 >60 ML/MIN/1.7 3 M2 11/19/2016 6:52 AM CDT [facility] EGFR AFR. AMER. >60 >60 ML/MIN/1.7 3 M2 11/19/2016 6:52 AM CDT [facility] ANION GAP 8.0 7 - 16 MMOL/L 11/19/2016 6:52 AM CDT [facility] 11/19/2016 6:25 AM CDT 11/19/2016 6:33 AM CDT Generic Conversion Md [facility] Performing Organization Address City/[facility]/ZIP Co de Phone Number [facility] [address] [place] [address], * (ABNORMAL) GLUCOSE BLOOD, QNT (11/19/2016 5:31 AM CDT) GLUCOSE POC 172(H) 70 - 99 MG/DL 11/19/2016 5:49 AM CDT [facility] ORDERS INTERFACE Comment:Value Noted, No Mandie tment Given 11/19/2016 5:31 AM CDT 11/19/2016 5:49 AM CDT us Generic Conversion Md [facility] Final R es[facility] ORDERS INTERFACE [place] * (ABNORMAL) GLUCOSE BLOOD, QNT (11/18/2016 8:29 PM CDT) GLUCOSE POC 188(H) 70 - 99 MG/DL 11/19/2016 2:46 AM CDT [facility] ORDERS INTERFACE Comment:Value Noted, No Mandie tment Given 11/18/2016 8:29 PM CDT 11/19/2016 2:46 AM CDT Generic Conversion Md [facility] Final R esult [facility] ORDERS INTERFACE US * (ABNORMAL) GLUCOSE BLOOD, QNT (11/18/2016 4:21 PM CDT) GLUCOSE POC 153(H) 70 - 99 MG/DL 11/18/2016 4:27 PM CDT [facility] ORDERS INTERFACE 11/18/2016 4:21 PM CDT 11/18/2016 4:27 PM CDT us Generic Conversion Md [facility] Final R [facility] Performing Organization Address [facility] de Phone Number [facility] ORDERS INTERFACE US * (ABNORMAL) GLUCOSE BLOOD, QNT (11/18/2016 11:09 AM CDT) GLUCOSE POC 169(H) 70 - 99 MG/DL 11/18/2016 11:11 AM CDT [facility] ORDERS INTERFACE 11/18/2016 11:0 9 AM CDT 11/18/2016 11:11 AM CDT us Generic Conversion Md [facility] Final [facility] Performing Organization Address [facility] Phone Number [facility] ORDERS INTERFACE US * (ABNORMAL) GLUCOSE BLOOD, QNT (11/18/2016 5:11 AM CDT) GLUCOSE POC 166(H) 70 - 99 MG/DL 11/18/2016 5:15 AM CDT [facility] ORDERS INTERFACE Comment:Value Noted, No Mandie tment Given 11/18/2016 5:11 AM CDT 11/18/2016 5:14 AM CDT us Generic Conversion Md [facility] Final R [facility] Performing Organization Address [facility] Phone Number [facility] ORDERS INTERFACE US * (ABNORMAL) GLUCOSE BLOOD, QNT (11/17/2016 8:53 PM CDT) GLUCOSE POC 170(H) 70 - 99 MG/DL 11/17/2016 9:15 PM CDT [facility] ORDERS INTERFACE Comment:Value Noted, No Mandie tment Given 11/17/2016 8:53 PM CDT 11/17/2016 9:15 PM CDT us Generic Conversion Md [facility] Final R [facility] Performing Organization Address [facility] Co de Phone Number [facility] ORDERS INTERFACE US * CULTURE, BACTERIA, BLOOD (11/17/2016 3:17 PM CDT) SPEC DESCRIPTION BLOOD 11/17/2016 3:04 PM CDT [facility] SPECIAL REQUESTS NO SPECIAL REQUEST 11/17/2016 3:04 PM CDT [facility] CULTURE RESULT NO GROWTH 5 DAYS 11/22/2016 6:12 AM CDT [facility] BLOOD SPECIMEN OBTAINED FOR BLOOD CULTURE / Unknown 11/17/2016 3:17 PM CDT 11/17/2016 3:22 PM CDT us Generic Conversion Md [facility] - GENERAL ORDERABLES Final Result Performing Organization Address City/[facility]/ZIP Co de Phone Number [facility] [address] [place] [address], * CULTURE, BACTERIA, BLOOD (11/17/2016 3:15 PM CDT) SPEC DESCRIPTION BLOOD 11/17/2016 3:04 PM CDT [facility] SPECIAL REQUESTS NO SPECIAL REQUEST 11/17/2016 3:04 PM CDT [facility] CULTURE RESULT NO GROWTH 5 DAYS 11/22/2016 6:12 AM CDT [facility] BLOOD SPECIMEN OBTAINED FOR BLOOD CULTURE / Unknown 11/17/2016 3:15 PM CDT 11/17/2016 3:22 PM CDT us Generic Conversion Md [facility] - GENERAL ORDERABLES Final Result Performing Organization Address City/[facility]/ZIP Co de Phone Number [facility] [address] [place] [address], [place] [phone] * LACTIC ACID (11/17/2016 3:15 PM CDT) LACTIC ACID VENOUS 1.7 0.5 - 2.2 MMOL/L 11/17/2016 3:39 PM CDT [facility] PLASMA SPECIMEN / Unknown 11/17/2016 3:15 PM CDT 11/17/2016 3:22 PM CDT us Generic Conversion Md [facility] Final R esult [facility] [address] [place] [address], [place] [phone] * D-DIMER, QUANTITATIVE (11/17/2016 3:15 PM CDT) D-DIMER 153 <230 D DU ng/mL 11/17/2016 3:34 PM CDT [facility] PLASMA SPECIMEN / Unknown 11/17/2016 3:15 PM CDT 11/17/2016 3:22 PM CDT us Generic Conversion Md [facility] Final R esult Performing Organization Address City/[facility]/ZIP Co de Phone Number [facility] [place] [address], [place] [phone] * (ABNORMAL) COMPREHENSIVE METABOLIC PANEL (11/17/2016 3:15 PM CDT) GLUCOSE 313(H) 70 - 99 MG/DL 11/17/2016 3:43 PM CDT [facility] BUN 21 8 - 26 MG/DL 11/17/2016 3:43 PM CDT [facility] CREATININE S/P/B 1.44(H) 0.72 - 1.25 MG/DL 11/17/2016 3:43 PM CDT [facility] SODIUM S/P/B 135(L) 136 - 145 MMOL/L 11/17/2016 3:43 PM CDT [facility] POTASSIUM S/P/B 4.7 3.5 - 5.1 MMOL/L 11/17/2016 3:43 PM CDT [facility] CHLORIDE S/P/B 101 98 - 107 MMOL/L 11/17/2016 3:43 PM CDT [facility] CO2 23.0 22.0 - 29.0 MMOL/L 11/17/2016 3:43 PM CDT [facility] CALCIUM S/P/B 9.9 8.4 - 10.2 MG/DL 11/17/2016 3:43 PM CDT [facility] BILIRUBIN TOTAL S/P/B 0.3 0.2 - 1.2 MG/DL 11/17/2016 3:43 PM CDT [facility] TOTAL PROTEIN S/P/B 7.7 6.0 - 8.3 G/DL 11/17/2016 3:43 PM CDT [facility] ALBUMIN S/P/B 4.1 3.5 - 5.2 G/DL 11/17/2016 3:43 PM CDT [facility] AST 31 5 - 34 U/L 11/17/2016 3:43 PM CDT [facility] ALT 61(H) 0 - 55 U/L 11/17/2016 3:43 PM CDT [facility] ALKALINE PHOSPHATASE S/P/B 85 50 - 136 U/L 11/17/2016 3:43 PM CDT [facility] OSMOLALITY (CALC) 285 275 - 300 MOSM/KG 11/17/2016 3:43 PM CDT [facility] A/G RATIO 1.1 1.0 - 1.6 RATIO 11/17/2016 3:43 PM CDT [facility] BUN CREATININE RATIO 14.6 12 - 20 11/17/2016 3:43 PM CDT [facility] ANION GAP 11.0 7 - 16 MMOL/L 11/17/2016 3:43 PM CDT [facility] EGFR NON-AFR. AMER. 54(L) >60 ML/MIN/1.7 3 M2 11/17/2016 3:43 PM CDT [facility] EGFR AFR. AMER. >60 >60 ML/MIN/1.7 3 M2 11/17/2016 3:43 PM CDT [facility] 11/17/2016 3:15 PM CDT 11/17/2016 3:22 PM CDT us Generic Conversion Md [facility] Final R esult [facility] [address] [place] [address], * (ABNORMAL) CBC W/DIFF AUTOMATED (11/17/2016 3:15 PM CDT) WBC 8.5 4.5 - 10.8 x10'3/uL 11/17/2016 3:26 PM CDT [facility] RBC 4.33(L) 4.50 - 6.10 x10'6/uL 11/17/2016 3:26 PM CDT [facility] HGB 12.5(L) 13.0 - 18.0 G/DL 11/17/2016 3:26 PM CDT [facility] HCT 37.2 37.0 - 52.0 % 11/17/2016 3:26 PM CDT [facility] MCV 85.9 78.0 - 100.0 FL 11/17/2016 3:26 PM CDT [facility] MCH 28.9 27.0 - 31.0 PG 11/17/2016 3:26 PM CDT [facility] MCHC 33.6 33.0 - 36.0 G/DL 11/17/2016 3:26 PM CDT [facility] RDW 13.6 11.5 - 14.5 % 11/17/2016 3:26 PM CDT [facility] PLT 294 150 - 350 x10'3/uL 11/17/2016 3:26 PM CDT [facility] MPV 11.2(H) 7.4 - 10.4 FL 11/17/2016 3:26 PM CDT [facility] SEG NEUTROPHILS 61.9 % 7 3:26 PM CDT [facility] LYMPHOCYTES 24.1 % 11/17/2016 3:26 PM CDT [facility] MONOCYTES 11.3 % 11/17/2016 3:26 PM CDT [facility] EOSINOPHILS 1.1 % 11/17/2016 3:26 PM CDT [facility] BASOPHILS 0.8 % 11/17/2016 3:26 PM CDT [facility] IMMATURE GRANS % 0.8 % 11/18/19 17 3:26 PM CDT [facility] NRBC 0.0 % 11/17/2016 3:26 PM CDT [facility] ABS. NEUTROPHILS 5.27 1.60 - 8.30 x10'3/uL 11/17/2016 3:26 PM CDT [facility] ABS. LYMPHOCYTES 2.05 0.80 - 4.70 x10'3/uL 11/17/2016 3:26 PM CDT [facility] ABS. MONOCYTES 0.96 0.00 - 1.50 x10'3/uL 11/17/2016 3:26 PM CDT [facility] ABS. EOSINOPHILS 0.09 0.00 - 0.40 x10'3/uL 11/17/2016 3:26 PM CDT [facility] ABS. BASOPHILS 0.07 0.00 - 0.20 x10'3/uL 11/17/2016 3:26 PM CDT [facility] ABS. IMMATURE GRANULOCYTES 0.07(H) 0.00 - 0.03 x10'3/uL 11/17/2016 3:26 PM CDT [facility] ABS. NUCLEATED RBC'S 0.00 0.00 x10'3/uL 11/17/2016 3:26 PM CDT [facility] OTHER (type in comments) 11/17/2016 3:15 PM CDT 11/17/2016 3:22 PM CDT Comment:WHOLE BLOOD SAMPLE us Generic Conversion Md [facility] Final R esult [facility] [address] [place] [address], documented in this encounter Visit Diagnoses Diagnosis Cellulitis of left lower extremity Cellulitis and abscess of leg, except foot documented in this encounter Additional Health Concerns Infection Onset Date Last Indicated Resolved Time MRSA Comment:Negative MRSA 05/201903/11/2017 03/11/2017 10/03/2019 10:08 AM CDT documented as of this encounter Care Teams Appeals Manager Relationship Specialty Start Date End Date Vernon Mercedes MD [address] [place] [address] PCP - General FAMILY PRACTICE 10/27/15 12/02/21 Stanislaw Rhodes MD [address] [place] [address] CARDIOVASCULAR DISEASE 10/27/15 10/24/18 Evaristo Allan MD [address] [place] [address] [place] [employer] Officer CARDIOVASCULAR DISEASE 08/19/16 Raul Santana MD [address] [place] [address] CLINICAL CARDIAC ELECTROPHYSIOLOGY 06/16/17 Myah Handley NP [address] [place] [address] CARDIOVASCULAR DISEASE 06/16/17 07/10/19 Deven Cleary MD [address] [place] [address] [employer]argo [employer] Manager INTERVENTIONAL CARDIOLOGY 03/21/18 10/24/18 documented as of this encounter
--- OUTSIDE RECORDS SUMMARY | 2024-04-23 04:30 | XMS_ITS | Encounter Summary ---
Author Organization [facility] Address [address] [place] [address]. [place], [place] [address] [place] [address] Care Team Providers Care Rn Home Care Name Role Phone Vernon Mercedes MD Primary Care Provider [phone] Stanislaw Rhodes MD Unavailable Unavailab Evaristo Ying MD Unavailable UnavailRaul Suresh MD Unavailable Unavailabl Myah Gee NP Unavailable Unavailable Reason for Visit * Reason Onset Date Comments Follow Up Call 01/06/2018 Encounter Details Date Type Department Care Team (Late st Contact Info) Description 01/06/2018 Telephone [employer] [facility] [address] [place] [address] Evaristo Allan MD Follow Up Call Social History Tobacco Use [...] 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 [address] [place] [address] Ti Bonilla MD [address] [place] [phone] 05/23/2024 3:30 PM QUALITY ASSURANCE SUPERVISOR BODY Office Visit [facility] [address] [place] [address] Jyoti Escobar MD [address] [place] [phone] documented as of this encounter Visit Diagnoses Not on filedocumented in this encounter Additional Health Concerns Infection Onset Date Last Indicated Resolved Time MRSA Comment:Negative MRSA 05/201903/11/2017 03/11/2017 10/03/2019 10:08 AM CDT documented as of this encounter Care Teams Rn Home Care Relationship Specialty Start Date End Date Vernon Mercedes MD [address] [place] [address] PCP - General FAMILY PRACTICE 10/27/15 12/02/21 Stanislaw Rhodes MD [address] [place] [address] CARDIOVASCULAR DISEASE 10/27/15 10/24/18 [place] [address] [place] [employer] CARDIOVASCULAR DISEASE 08/19/16 [place] [address] CLINICAL CARDIAC ELECTROPHYSIOLOGY 06/16/17 [place] [address] CARDIOVASCULAR DISEASE 06/16/17 07/10/19 documented as of this encounter
--- OUTSIDE RECORDS SUMMARY | 2024-04-23 04:30 | XMS_ITS | Encounter Summary ---
Author Organization [facility] Address [address] [place] [address]. [place], [place] [address] [place] [address] Care Team Providers Care Telecommunications Cable Jointer Name Role Phone Vernon Delgado MD Primary Care Provider [phone] Stanislaw Rhodes MD Unavailable Unavailab Evaristo Ying MD Unavailable Unavailabl e Reason for Visit * Reason Comments Follow Up Hypertension Atrial Fibrillation Encounter Details Date Type Department Care Team (Latest Contact Info) Description 03/31/2017 9:00 AM POWERHOUSE OILER Office Visit [facility] [place] [address] Evaristo Allan MD Follow Up; Hypertension; Atrial Fibrillation Social History Tobacco Use Types [...] 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 Not on file Not on file documented as of this encounter Last Filed Vital Signs Vital Sign Reading Time Taken Comments Blood Pressure 120/66 04/01/2017 10:00 AM POWERHOUSE OILER Pulse 78 04/01/2017 10:00 AM POWERHOUSE OILER Temperature - - Respiratory Rate 16 04/01/2017 10:00 AM POWERHOUSE OILER Oxygen Saturation 96% 04/01/2017 10:00 AM POWERHOUSE OILER Inhaled Oxygen Concentration - - Weight 127 kg (280 lb) 04/01/2017 10:00 AM POWERHOUSE OILER Height 177.8 cm (5' 10 ) 04/01/2017 10:00 AM POWERHOUSE OILER Body Mass Index 40.18 04/01/2017 10:00 AM POWERHOUSE OILER documented in this encounter Patient Instructions * Patient Instructions* Marcelle Madden, [place] - 04/01/2017 10:27 AM POWERHOUSE OILER Images from the original note were not included. 1. Continue same medications 2. RTC in 1 yr Arrhythmias About this topic Your heart has an electrical system that controls each heartbeat and signals your heart to pump blood. The signal starts in the top chambers of the heart and moves to the bottom chambers. The signal repeats with each heartbeat. The heart has 2 upper chambers called atria and 2 lower chambers calledventricles. These chambers beat in a coordinated way when the heart is healthy. This lets the heartpump blood effectively to the rest of the body. You have an arrhythmia if the electrical signals do not flow as they should, go the wrong way, or are blocked. When this happens, your heart beat is not normal and the heart does not pump blood out to the body as well as it should. Treatment of abnormal heartbeats depends on the cause. Choices may include drugs or lifestyle changes. Sometimes, you may need surgery to place a pacemaker or other devices that keep the heart beat normal. Other times, you may not need any treatment. What are the causes? ?? Heart attack or health problem that damages or changes the heart???s electrical system ?? Health problems like high blood pressure or diabetes ?? Recent heart surgery ?? Smoking, caffeine, too much alcohol use ?? Some prescription and gzme-wdm-yncqzne drugs, as well as street drugs such as cocaine and amphetamines ?? Stress ?? Electrical shock ?? defects ?? Your body's natural chemicals like thyroid hormone, potassium, or calcium are out of balance. This may happen if you have an illness like kidney disease. Too much throwing up or loose stools can also cause this problem. So can some drugs you take. What can make this more likely to happen? Older adults are more likely to have arrhythmias. You are more at risk if you have heart problems like heart disease or were born with a heart defect. Health problems like diabetes, sleep apnea, or high blood pressure also raise your risk for an arrhythmia. So does using street drugs or having surgery on your heart. What are the main signs? ?? A heartbeat that is too fast, called tachycardia. ?? A heartbeat that is too slow, called bradycardia. ?? Feeling like your heart skips a beat or flutters ?? Feeling weak, dizzy, lightheaded, or fainting ?? Chest pain ?? Short of breath ?? Very bad sweating ?? Feeling anxious ?? Not able to lie flat ?? Swelling in the arms or legs ?? Some people have no signs How does the doctor diagnose this health problem? Your doctor will do an exam and ask about your history. The doctor may listen for a heart murmur orlook for signs of some other health problem. The doctor may order: ?? Lab tests ?? Chest x-ray ?? Echocardiogram ?? Electrocardiogram (EKG) ?? A Holter monitor to check your heart's signals ?? Stress test ?? Electrophysiology studies ?? Tilt table test ?? Cardiac cath How does the doctor treat this health problem? Your doctor will treat your arrhythmia based on what is causing it. You may need to take drugs to make your heart beat normal. If drugs do not help the problem, your doctor may need to do a procedureor surgery like: ?? Pacemaker ?? Cardioversion ?? Automatic implantable cardioverter defibrillator (AICD) ?? Cardiac cath with ablation ?? Maze surgery ?? Bypass grafting surgery ?? Vagal maneuvers What lifestyle changes are needed? ?? Eat a heart healthy diet of: ?? More fruits and vegetables ?? Lean meats and poultry ?? Whole grains (breads and cereals) ?? Use canola oil and olive oil when cooking. ?? Avoid foods high in fats and cholesterol. ?? Stop smoking. ?? Limit or stop caffeine. ?? Drink lots of fluids. What drugs may be needed? The doctor may order drugs to: ?? Keep your heartbeat normal and steady ?? Prevent or treat blood clots ?? Treat the condition that causes arrhythmia ?? Control the rate of your heartbeat What problems could happen? ?? Heart failure ?? Chest pain ?? Heart attack ?? Stroke ?? Damage to the heart, brain, or other organs ?? Sudden What can be done to prevent this health problem? ?? Keep a healthy weight. If you are overweight, lose weight. ?? Exercise more often. This will improve your body's blood flow. ?? Limit beer, wine, and mixed drinks (alcohol). ?? Avoid stress. ?? Stay away from drugs that make the heartbeat faster, like those used for colds and cough. ?? Avoid caffeine or energy drinks. ?? Avoid street drugs like cocaine or amphetamines. When do I need to call the doctor? Activate the emergency medical system right away if you have signs of a heart attack or stroke. Call 911 in the [place] or [place]. The sooner treatment begins, the better your chances for recovery. Call for emergency help right away if you have: ?? Signs of heart attack: ?? Chest pain ?? Trouble breathing ?? Fast heartbeat ?? Feeling dizzy ?? Signs of stroke: ?? Sudden numbness or weakness of the face, arm, or leg, especially on one side of the body ?? Sudden confusion, trouble speaking or understanding ?? Sudden trouble seeing in one or both eyes ?? Sudden trouble walking, dizziness, loss of balance or coordination ?? Sudden severe headache with no known cause Call your doctor if you have: ?? Problems with breathing. These include change in shortness of breath, wheezing, need to sleep sitting up to be able to breathe, or other breathing troubles. ?? Blue or peng skin color ?? Very bad sweating ?? Pain, pressure, tightness, or heaviness in your chest, arm, neck, or jaw ?? Very fast heartbeat ?? Trouble breathing with exercise ?? Gas pains or heartburn ?? Bleeding Where can I learn more? [place] [employer] http://www.heart.org/HEARTORG/Conditions/Arrhythmia/AboutArrhythmia/About-Arrhyt ia_[facility]_002010_Article.jsp Kids[employer] http://kidshealth.org/teen/diseases_conditions/heart/arrhythmias.html National Heart Lung and Blood [place] http://www.nhlbi.nih.gov/health/health-topics/topics/arr/ Last Reviewed Date 2015-12-25 Consumer Information Use and Disclaimer This information [...] or not to accept your health care provider???s advice, instructions or recommendations. Only your health care provider has the knowledge and training to provide advice that is right for you. Copyright Copyright ?? 2017 [employer]. and its affiliates and/or licensors. All rights reserved. RHOUSE OILER RHOUSE OILER RHOUSE OILER documented in this encounter Progress Notes * Evaristo Allan MD - 03/31/2017 9:44 AM CST HISTORY OF PRESENT ILLNESS: Mr. Zelaya is seen in the [facility] today for a scheduled followup visit. He reports that he is doing well from a cardiac standpoint. Mr. Zelaya denies any anginal chest pain or shortness of breath. He denies any overt symptoms of congestive heart failure such as paroxysmal nocturnal dyspnea or orthopnea. He does report that he has been using his CPAP for over 1 year now and seems to be tolerating it well. He does have some pedal edema, but this has improved with diuretic therapy. He denies any palpitations, syncope, or near syncope. He is without claudication and seems to be tolerating his present medications well. Mr. Zelaya is status post ablation for his atrial fibrillation under the direction of Dr. Santana. He did have some post-ablation atrial fibrillation which was treated with antiarrhythmic therapy, which included Amiodarone and Diltiazem. The Amiodarone and Diltiazem was discontinued approximately2 months ago by Dr. Santana and Mr. Zelaya has had no recurrence of his atrial fibrillation clinically. He does report that his diabetes is reasonably well controlled, although his blood sugars in the morning generally run around 170. RECOMMENDATIONS AND PLAN: Mr. Zelaya cardiac status appears clinically stable at the present time. There is no clinical evidence of recurrence of his atrial fibrillation and he seems to be tolerating his present medications well. Continued medical therapy and aggressive cardiac risk factor modification seem most appropriate at the present time. Fortunately, his previous chest pain syndrome resolved with anti-inflammatory therapy. I have recommended the following to Mr. Zelaya: 1. Continue present medical regimen without alteration. 2. Annual followup in the cardiology clinic. I have encouraged him to contact me in the meantime should he have any questions or problems. RHOUSE OILER * Evaristo Allan MD - 03/31/2017 9:00 AM CST Reason for Visit: Follow Up; Hypertension; and Atrial Fibrillation Medications: Current Outpatient Prescriptions: ??? atorvastatin 40 MG tablet, Take 40 mg by mouth daily., Disp: , Rfl: ??? dabigatran 150 MG Cap, Take 1 capsule (150 mg total) by mouth 2 (two) times daily., Disp: 180 capsule, Rfl: 3 ??? furosemide 20 MG tablet, , Disp: , Rfl: ??? insulin lispro [...] hr tablet, , Disp: , Rfl: ??? 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 Smoking status: [...] new or significant memory loss. Filed Vitals: 04/01/17 1000 BP: 120/66 Pulse: 78 Resp: 16 SpO2: 96% Weight: 127 kg (280 lb) Height: 5' 10 (1.778 m) Physical Exam Constitutional: He is oriented to person, place, and time. He appears well- developed and well-nourished. No distress. obese HENT: Mouth/Throat: Mucous membranes are not pale and not cyanotic. Eyes: There is no xanthelasma. Neck: Neck supple. Normal carotid pulses and no JVD present. Carotid bruit is not present. Cardiovascular: Normal rate, regular rhythm, S1 normal and S2 normal. Exam reveals no S3 and no S4. No murmur heard. Pulses: Dorsalis pedis pulses are 2+ on the right side, and 2+ on the left side. Posterior tibial pulses are 2+ on the right side, and 2+ on the left side. Pulmonary/Chest: Effort normal and breath sounds normal. Abdominal: Soft. Normal appearance. He exhibits no abdominal bruit and no mass. There is no hepatosplenomegaly. There is no tenderness. Musculoskeletal: He exhibits no edema. Trace edema No severe kyphoscoliosis. Neurological: He is oriented to person, place, and time. Neuro exam grossly normal. Skin: Skin is warm, dry and intact. No cyanosis. Nails show no clubbing. Without evidence of xanthoma. Psychiatric: He has a normal mood and affect. Diagnoses/Impression: 1. Paroxysmal atrial fibrillation 2. Hyperlipidemia, unspecified hyperlipidemia type 3. 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 SARAI (obstructive sleep apnea) [place] Documentation Completed: Atrial Fibrillation Referring Provider: No ref. provider found PCP: VERNON DELGADO RHOUSE OILER documented in this encounter Plan of Treatment Upcoming Encounters Date Type Department Care Team (Late st Contact Info) Description 04/25/2024 11:00 AM POWERHOUSE OILER Appointment [facility] [address] [place] [address] [place] [address] Ti Bonilla MD [address] [place] [phone] 05/23/2024 3:30 PM POWERHOUSE OILER Office Visit [facility] [address] [place] [address] Jyoti Escobar MD [address] [place] [phone] documented as of this encounter Visit Diagnoses Diagnosis Paroxysmal atrial fibrillation (CMS/HCC HHS/HCC)- Primary Atrial fibrillation Hyperlipidemia, unspecified hyperlipidemia type Essential hypertension Unspecified essential hypertension 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 SARAI (obstructive sleep apnea) Obstructive sleep apnea (adult) (pediatric) documented in this encounter Additional Health Concerns Infection Onset Date Last Indicated Resolved Time MRSA Comment:Negative MRSA 05/201903/11/2017 03/11/2017 10/03/2019 10:08 AM CDT documented as of this encounter Care Teams Telecommunications Cable Jointer Relationship Specialty Start Date End Date Vernon Delgado MD [address] [place] [phone] PCP - General FAMILY PRACTICE 10/27/15 12/02/21 Stanislaw Rhodes MD [address] [place] [phone] CARDIOVASCULAR DISEASE 10/27/15 10/24/18 Evaristo Allan MD [address] [place] [address] [facility] Nurse CARDIOVASCULAR DISEASE 08/19/16 documented as of this encounter
--- OUTSIDE RECORDS SUMMARY | 2024-04-23 04:30 | XMS_ITS | Encounter Summary ---
Author Organization [facility] Address [address] [place] [address]. [place], [place] [address] [place] [address] Care Team Providers Care Asp Net Mvc Developer Name Role Phone Vernon Mercedes MD Primary Care Provider [phone] Stanislaw Rhodes MD Unavailable Unavailab Evaristo Ying MD Unavailable Unavailabl Raul Duran MD Unavailable Unavailabl Myah Gee NP Unavailable Unavailable Reason for Visit * Reason Onset Date Comments Appointment Request 02/14/2018 Encounter Details Date Type Department Care Team (Late st Contact Info) Description 02/14/2018 Telephone [facility] [address] [phone] Deven Cleary MD Appointment Request Social History Tobacco Use [...] 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 on file Not on file documented as of this encounter Progress Notes * Pam Baig RN - 02/14/2018 12:38 PM CDT Message left requesting return call to schedule consultation ([facility]) documented in this encounter Plan of Treatment Upcoming Encounters Date Type Department Care Team (Late st Contact Info) Description 04/25/2024 11:00 AM BALL MAKER Appointment [facility] [address] [place] [address] Ti Bonilla MD [address] [place] [phone] 05/23/2024 3:30 PM BALL MAKER Office Visit [facility] [address] [place] [address] Jyoti Escobar MD [address] [place] [phone] documented as of this encounter Visit Diagnoses Not on filedocumented in this encounter Additional Health Concerns Infection Onset Date Last Indicated Resolved Time MRSA Comment:Negative MRSA 05/201903/11/2017 03/11/2017 10/03/2019 10:08 AM CDT documented as of this encounter Care Teams Asp Net Mvc Developer Relationship Specialty Start Date End Date Vernon Mercedes MD [address] [place] [address] PCP - General FAMILY PRACTICE 10/27/15 12/02/21 [place] [address] CARDIOVASCULAR DISEASE 10/27/15 10/24/18 [place] [address] [place] Project Archivist CARDIOVASCULAR DISEASE 08/19/16 [place] [address] CLINICAL CARDIAC ELECTROPHYSIOLOGY 06/16/17 [place] [address] CARDIOVASCULAR DISEASE 06/16/17 07/10/19 documented as of this encounter
--- OUTSIDE RECORDS SUMMARY | 2024-04-23 04:30 | XMS_ITS | Encounter Summary ---
Author Organization [facility] Address [address] [place] [address]. [place], [place] [address] [place] [address] Care Team Providers Care Sulfide Head Operator Name Role Phone eVrnon Mercedes MD Primary Care Provider [phone] Stanislaw Rhodes MD Unavailable Unavailab Elza Ying MD Unavailable UnavailEve Suresh MD Unavailable Unavailabl Myah Gee NP Unavailable Unavailable Encounter Details Date Type Department Care Team (Latest Contact Info) Description 05/20/[address] 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 [place] [address] Ti Bonilla MD [address] [place] [phone] 05/23/2024 3:30 PM DOCUMENT ANALYST Office Visit [facility] [place] [phone] Jyoti Escobar MD [address] [place] [address] documented as of this encounter Procedures Procedure Name Priority Date/Time Associated Diagnosis Comments ECG 12-LEAD Routine 05/20/2016 7:10 AM DOCUMENT ANALYST documented in this encounter Results * ECG 12 lead (05/20/2016 7:10 AM DOCUMENT ANALYST) 05/20/2016 7:10 [address] N[address]ative [facility] - 05/20/2016 8:34 AM DOCUMENT ANALYST ? [facility] ? [address] [place], [place] ??[address] ? Test Date: ?2016-05-20 Pat Name: ? ELZA MCKEON ? Department: ?? 1 ? Room: ? 0582A Gender: ? M ?Scroll Assembler: ?? sg : ?1960 ? Requested By: EVE CARRERA Order Number: [id number] ? Jose Antonio OSMAN: ?? Valeriy Florian ? Measurements Intervals ?Jay ? Rate: ? 72 ? P: ?7 KS: ? 123 ?QRS: ?20 QRSD: ? 113 ?T: ?5 QT: ? 400 ? QTc: ?438 ? Interpretive Statements SINUS RHYTHM WITH MARKED SINUS ARRHYTHMIA INCOMPLETE RIGHT BUNDLE BRANCH BLOCK MENT ANALYST Procedure Note Stephani Osman MD - 12/11/2018 [place] [address] [place] [address] Test Date: 2016-05-20 Pat Name: [facility] Department: 1 Room: 0582A Gender: M Scroll Assembler: : 1960 Requested By: EVE CARRERA Order Number: [id number] Reading : Valeriy Florian Measurements Intervals Jay Rate: 72 P: 7 KS: 123 QRS: 20 QRSD: 113 T: 5 QT: 400 QTc: 438 Interpretive Statements SINUS RHYTHM WITH MARKED SINUS ARRHYTHMIA INCOMPLETE RIGHT BUNDLE BRANCH BLOCK MENT ANALYST us Generic Conversion Md OSMAN ECG ORDERABLES Final R [facility]ult [facility] documented in this encounter Visit Diagnoses Not on filedocumented in this encounter Additional Health Concerns Infection Onset Date Last Indicated Resolved Time MRSA Comment:Negative MRSA 05/201903/11/2017 03/11/2017 10/03/2019 10:08 AM CDT documented as of this encounter Care Teams Sulfide Head Operator Relationship Specialty Start Date End Date Vernon Mercedes MD [address] [place] [phone] PCP - General FAMILY PRACTICE 10/27/15 12/02/21 Stanislaw Rhodes MD [address] [place] [phone] CARDIOVASCULAR DISEASE 10/27/15 10/24/18 Elza Allan MD [address] [place] [phone] [place] Quantitative Analyst Marketing CARDIOVASCULAR DISEASE 08/19/16 Eve Carrera MD [address] [place] [phone] CLINICAL CARDIAC ELECTROPHYSIOLOGY 06/16/17 Myah Handley NP [address] [place] [phone] CARDIOVASCULAR DISEASE 06/16/17 07/10/19 documented as of this encounter
--- OUTSIDE RECORDS SUMMARY | 2024-04-23 04:30 | XMS_ITS | Encounter Summary ---
Author Organization [facility] Address [address] [place] [address]. [place], [place] [address] [place] [address] Care Team Providers Care End Trimmer Name Role Phone Vernon Mercedes MD Primary Care Provider [phone] Stanislaw Rhodes MD Unavailable Unavailab Evaristo Ying MD Unavailable UnavailRaul Suresh MD Unavailable Unavailabl Myah Gee NP Unavailable Unavailable Encounter Details Date Type Department Care Team (Late st Contact Info) Description 03/07/[address] 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 [address] [facility] [place] [address] Ti Bonilla MD [address] [place] [phone] 05/23/2024 3:30 PM HAMMER SETTER Office Visit [facility] [address] [place] [address] Jyoti Escobar MD [address] [place] [address] documented as of this encounter Visit Diagnoses Not on filedocumented in this encounter Additional Health Concerns Infection Onset Date Last Indicated Resolved Time MRSA Comment:Negative MRSA 05/201903/11/2017 03/11/2017 10/03/2019 10:08 AM CDT documented as of this encounter Care Teams End Trimmer Relationship Specialty Start Date End Date [place] [address] PCP - General FAMILY PRACTICE 10/27/15 12/02/21 Stan[place] [phone] CARDIOVASCULAR DISEASE 10/27/15 10/24/18 [place] [address] [place] Phone Banker CARDIOVASCULAR DISEASE 08/19/16 [place] [address] CLINICAL CARDIAC ELECTROPHYSIOLOGY 06/16/17 [place] [address] CARDIOVASCULAR DISEASE 06/16/17 07/10/19 documented as of this encounter
--- OUTSIDE RECORDS SUMMARY | 2024-04-23 04:30 | XMS_ITS | Encounter Summary ---
Author Organization [facility] Address [address] [place] [address]. [place], [place] [address] [place] [address] Care Team Providers Care Music Promoter Name Role Phone Vernon Mercedes MD Primary Care Provider [phone] Stanislaw Rhodes MD Unavailable Unavailab le Encounter Details Date Type Department Care Team (Late Contact Info) Description 05/25/2016 Orders Only [facility] [address] [place] [address] Raul Santana MD Social History Tobacco Use Types Packs/Day [...] (Late Contact Info) Description 04/25/2024 11:00 AM GENERAL FARMER Appointment [facility] [place] [address] Ti Bonilla MD [address] [place] [phone] 05/23/2024 3:30 PM GENERAL FARMER Office Visit [facility] [address] Jyoti Escobar MD [address] [place] [address] documented as of this encounter Visit Diagnoses Not on filedocumented in this encounter Care Teams Music Promoter Relationship Specialty Start Date End Date Vernon Mercedes MD [address] [place] [phone] PCP - General FAMILY PRACTICE 10/27/15 12/02/21 Stanislaw Rhodes MD [address] [place] [address] CARDIOVASCULAR DISEASE 10/27/15 10/24/18 documented as of this encounter
--- OUTSIDE RECORDS SUMMARY | 2024-04-23 04:30 | XMS_ITS | Encounter Summary ---
Author Organization [facility] Address [address] [place] [address]. [place], [place] [address] [place] [address] Care Team Providers Care Stone Processing Machine Operator Name Role Phone Vernon Mercedes MD Primary Care Provider [phone] Stanislaw Rhodes MD Unavailable Unavailab Evaristo Ying MD Unavailable UnavailRaul Suresh MD Unavailable UnavailMyah Elena NP Unavailable Unavailable Deven Cleary MD Unavailable Unavailable Encounter Details Date Type Department Care Team (Late Contact Info) Description 10/28/2016 Abstract [facility] [address] [place] [address] Danny Blackwell MD [address] [place] [address] Social History Tobacco Use Types [...] (Late Contact Info) Description 04/25/2024 11:00 AM FOOT MITER OPERATOR Appointment [facility] [address] [place] [address] Ti Bonilla MD [address] [place] [phone] 05/23/2024 3:30 PM FOOT MITER OPERATOR Office Visit [facility] [place] [address] Jyoti Escobar MD [address] [place] [address] documented as of this encounter Procedures Procedure Name Priority Date/Time Associated Diagnosis Comments SED RATE, ERYTHROCYTE (ESR) Routine 10/28/2016 3:25 PM CDT C-REACTIVE PROTEIN Routine 10/28/2016 3: 25 PM CDT CBC W/DIFF AUTOMATED Routine 10/28/2016 3:25 PM CDT documented in this encounter Results * (ABNORMAL) SED RATE, ERYTHROCYTE (ESR) (10/28/2016 3:25 PM CDT) ESR 34(H) 0 - 20 MM/HR 10/28/2016 4:18 PM CDT [facility] Comment:NOTE: ANEMIA, IF PRE SENT, MAY CAUSE AN ELEVATED SEDIMENTATION RATE. WHOLE BLOOD SPECIMEN / Unknown 10/28/2016 3:25 PM CDT 10/28/2016 4:13 PM CDT us Generic Conversion Md [facility] Final R esult [facility] [place] [address], * C-REACTIVE PROTEIN (10/28/2016 3:25 PM CDT) Pathologist [facility] C-REACTIVE PROTEIN 0.40 <0.6 mg/dL 10/29/2016 4:43 PM CDT [facility] SERUM OR PLASMA SPECIMEN / Unknown 10/28/2016 3:25 PM CDT 10/28/2016 4:13 PM CDT us Generic Conversion Md [facility] Final R esult [facility] [address] [place] [address], [phone] * (ABNORMAL) CBC W/DIFF AUTOMATED (10/28/2016 3:25 PM CDT) WBC 7.0 4.5 - 10.8 x10'3/uL 10/28/2016 4:14 PM CDT [facility] RBC 4.37(L) 4.50 - 6.10 x10'6/uL 10/28/2016 4:14 PM CDT [facility] HGB 12.6(L) 13.0 - 18.0 G/DL 10/28/2016 4:14 PM CDT [facility] HCT 37.7 37.0 - 52.0 % 10/28/2016 4:14 PM CDT [facility] MCV 86.3 78.0 - 100.0 FL 10/28/2016 4:14 PM CDT [facility] MCH 28.8 27.0 - 31.0 PG 10/28/2016 4:14 PM CDT [facility] MCHC 33.4 33.0 - 36.0 G/DL 10/28/2016 4:14 PM CDT [facility] RDW 13.5 11.5 - 14.5 % 10/28/2016 4:14 PM CDT [facility] PLT 225 150 - 350 x10'3/uL 10/28/2016 4:14 PM CDT [facility] MPV 12.6(H) 7.4 - 10.4 FL 10/28/2016 4:14 PM CDT [facility] SEG NEUTROPHILS 60.3 % 7 4:14 PM CDT [facility] LYMPHOCYTES 25.4 % 10/28/2016 4:14 PM CDT [facility] MONOCYTES 12.1 % 10/28/2016 4:14 PM CDT [facility] EOSINOPHILS 1.1 % 10/28/2016 4:14 PM CDT [facility] BASOPHILS 0.7 % 10/28/2016 4:14 PM CDT [facility] IMMATURE GRANS % 0.4 % 10/29/19 17 4:14 PM CDT [facility] NRBC 0.0 % 10/28/2016 4:14 PM CDT [facility] ABS. NEUTROPHILS 4.23 1.60 - 8.30 x10'3/uL 10/28/2016 4:14 PM CDT [facility] ABS. LYMPHOCYTES 1.78 0.80 - 4.70 x10'3/uL 10/28/2016 4:14 PM CDT [facility] ABS. MONOCYTES 0.85 0.00 - 1.50 x10'3/uL 10/28/2016 4:14 PM CDT [facility] ABS. EOSINOPHILS 0.08 0.00 - 0.40 x10'3/uL 10/28/2016 4:14 PM CDT [facility] ABS. BASOPHILS 0.05 0.00 - 0.20 x10'3/uL 10/28/2016 4:14 PM CDT [facility] ABS. IMMATURE GRANULOCYTES 0.03 0.00 - 0.03 x10'3/uL 10/28/2016 4:14 PM CDT [facility] ABS. NUCLEATED RBC'S 0.00 0.00 x10'3/uL 10/28/2016 4:14 PM CDT [facility] OTHER (type in comments) 10/28/2016 3:25 PM CDT 10/28/2016 4:13 PM CDT Comment:WHOLE BLOOD SAMPLE us Generic Conversion Md [facility] Final R esult [facility] [address] [place] [address], documented in this encounter Visit Diagnoses Diagnosis Essential (primary) hypertension Unspecified essential hypertension documented in this encounter Additional Health Concerns Infection Onset Date Last Indicated Resolved Time MRSA Comment:Negative MRSA 05/201903/11/2017 03/11/2017 10/03/2019 10:08 AM CDT documented as of this encounter Care Teams Stone Processing Machine Operator Relationship Specialty Start Date End Date Vernon Mercedes MD [address] [place] [phone] PCP - General FAMILY PRACTICE 10/27/15 12/02/21 Stanis[place] [place] [address] CARDIOVASCULAR DISEASE 10/27/15 10/24/18 [place] [phone] [place] Diving Instructor CARDIOVASCULAR DISEASE 08/19/16 [place] [phone] CLINICAL CARDIAC ELECTROPHYSIOLOGY 06/16/17 Myah Handley, AFFILIATE [place] [place] [phone] CARDIOVASCULAR DISEASE 06/16/17 07/10/19 [place] [address] [place] [employer] INTERVENTIONAL CARDIOLOGY 03/21/18 10/24/18 documented as of this encounter
--- OUTSIDE RECORDS SUMMARY | 2024-04-23 04:30 | XMS_ITS | Encounter Summary ---
Author Organization [facility] Address [address] [place] [address]. [place], [place] [address] [place] [address] Care Team Providers Care Quality Assurance Manager Name Role Phone Vernon Mercedes MD Primary Care Provider [phone] Stanislaw Rhodes MD Unavailable Unavailab Evaristo Ying MD Unavailable UnavailRaul Suresh MD Unavailable UnavailMyah Elena NP Unavailable Unavailable Deven Cleary MD Unavailable Unavailable Encounter Details Date Type Department Care Team (Late st Contact Info) Description 03/24/2018 7:58 AM GRAIN MILL PRODUCTS INSPECTOR Anesthesia Event [facility] [employer] [employer] [facility] Pre/Post [address] [place] [address] Damien Reyes MD [address] [place] [address] Anesthesia Record Procedure Summary Procedure Name Responsible Anesthesiologist Anesthesia Start Time Anesthesia Stop Time XA CORONARY INTERVENTION Damien Reyes MD 03/24/18 0758 03/24/18 0953 Events Date Time Event Comment 03/24/2018 0740 0758 An Start Patient ID and consent checked and patient reassessed. 0758 An Start Data 0805 AN Anesthesia Prepped 0805 Face Mask Applied 0815 Anesthesia Ready 0847 Quick Note ABP slaved from field access 0944 an stop data 0953 Post Anesthetic Care Handoff I completed my handoff to the receiving nurse during which we: 1. Identified the patient 2. Identified the responsible provider 3. Reviewed the pertinent medical history 4. Discussed the surgical course 5. Reviewed intra-op anesthesia management and issues during anesthesia 6. Set expectations for post-procedure period 7. Allowed opportunity for questions and acknowledgement of understanding. 0953 An Stop 03/31/2018 1218 PB Charge This event is f or Chart Correction to drop the Anesthesia Placeholder [[id number]] Charge on anesthesia records per Incident #[id number]. Meds Name Total propofol (DIPRIVAN) 500 mg/50 mL injecti on 938.52 mg ketamine (KETALAR) 100 mg in sodium chlo ride 0.9 % 100 mL infusion 93.85 mg midazolam (VERSED) 1 mg/mL injection 2 m g heparin 5,000 units/mL injection 12,000 Units lactated ringers infusion 600 mL sodium chloride 0.9% infusion 900 mL * Agents Name O2 Ancillary O2 * Blood No blood administrations on file. Lines, Drains, and Airways Type Details Placement Removal Peripheral IV Placement Date: 11/02; Placement Time: 07; Placed Outside of This Facility?: No; Size: 18 G; Orientation: Anterior, Right; Location: Wrist; Site Prep: Alcohol; Insertion attempts: 2; Ultrasound-guided Placement?: No; Patient Tolerance: Tolerated well; Removal Date: 03/24/18; Removal Time: 1025 03/24/18 0713 by Manisha Moore RN 03/24/18 1025 by Sariah Landry RN Peripheral IV Placement Date: 11/02; Placement Time: 08; Placed Outside of This Facility?: No; Size: 18 G; Orientation: Left; Location: Upper arm; Site Prep: Chlorhexidine; Local Anesthetic: None; Insertion attempts: 2; Ultrasound-guided Placement?: No; Patient Tolerance: Tolerated well; Removal Date: 03/24/18; Removal Time: 1025 03/24/18 0809 by Barb Kelly CRNA 03/24/18 1025 by Sariah Landry RN documented in this encounter Social History Tobacco [...] 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 Not on file Not on file documented as of this encounter Progress Notes * Rosa Barnett - 03/31/2018 12:19 PM CST Addendum created 03/31/18 1219 by Rosa Barnett Intraprocedure Event edited N MILL PRODUCTS INSPECTOR documented in this encounter OR Notes * Anesthesia Postprocedure Evaluation - Damien Reyes MD - 03/24/2018 10:19 AM CST Anesthesia Post-op Note Evaristo Zelaya Procedure(s): XA CORONARY INTERVENTION Anesthesia type: MAC Vitals: 03/24/18640 BP: 118/68 Vitals: 03/24/1841 Pulse: 69 Vitals: 03/24/1841 Resp: 16 Vitals: 03/24/18640 Temp: 35.6 ??C Vitals: 03/24/18640 SpO2: 99% Patient Location: PACU Level of Consciousness: awake, alert and oriented Pain Management: adequate analgesia Airway Patency: patent Respiratory Status: acceptable Cardiovascular Status: acceptable Post-Op Nausea: none Postoperative Hydration: euvolemic Complications: no anesthesia complication N MILL PRODUCTS INSPECTOR * Anesthesia Preprocedure Evaluation - Barb Kelly CRNA - 03/24/2018 8:02 AM CST Anesthesia ROS/MED History Reviewed: Patient summary , Nursing notes , ECG, Anesthesia history , Medications , Labs , Images/Studies Pre-Anesthetic State: alert, responds appropriately and awake no history of anesthetic complications Pulmonary (+) sleep apnea, (CPAP) Cardiovascular Exercise tolerance:poor (+) hypertension, CAD, arrhythmia ( AFIB resolved after ablation last year), (A-fib) Neuro/Psych (+) headaches GI/Hepatic/Renal (+) GERD, (well controlled) Comments: Hx of aspiration after oral antiacid meds, no issues with other procedures after that without the oral meds. Patient doesn't want to take oral bicarb. Endo/Other (+) diabetes mellitus, obese, (Morbid) Physical Evaluation Airway Mallampati: I TM Distance: >3 FB Neck ROM: normal Dental No notable dental history Pulmonary Pulmonary exam normal Cardiovascular Cardiovascular exam normal Anesthesia Plan ASA 2 Intravenous Induction Anesthesia type: MAC Informed Consent Anesthetic plan and risks discussed with patient of whom. Use of blood products discussed with patient of whom. . N MILL PRODUCTS INSPECTOR documented in this encounter Plan of Treatment Upcoming Encounters Date Type Department Care Team (Late st Contact Info) Description 04/25/2024 11:00 AM GRAIN MILL PRODUCTS INSPECTOR Appointment [facility] [address] [place] [address] Ti Bonilla MD [address] [place] [phone] 05/23/2024 3:30 PM GRAIN MILL PRODUCTS INSPECTOR Office Visit [facility] [address] [place] [phone] Jyoti Escobar MD [address] [place] [address] documented as of this encounter Visit Diagnoses Not on filedocumented in this encounter Administered Medications Inactive Administered Medications - up to 3 most recent administrations Medication Order MAR Action Action Date Dose Rate Site heparin (porcine) injection PRN, Starting on Tue03/24/18 at 0849, Until Tue03/24/18 at 0953, Anesthesia Intra-Op Given 03/24/2018 9:13 AM GRAIN MILL PRODUCTS INSPECTOR 2,000 Units Given 03/24/2018 8:49 AM GRAIN MILL PRODUCTS INSPECTOR 10,000 Units ketamine (KETALAR) 100 mg in sodium chloride 0.9 % 100 mL infusion Intravenous, Continuous PRN, Starting on Tue03/24/18 at 0806, Until Tue03/24/18 at 0953, Anesthesia Intra-Op New Bag 03/24/2018 8:06 AM GRAIN MILL PRODUCTS INSPECTOR 10 mcg/kg/min 71.3 mL/hr lactated ringers infusion Continuous PRN, Starting on Tue03/24/18 at 0758, Until Tue03/24/18 at 09, Anesthesia Intra-Op New Bag 03/24/2018 7:58 AM GRAIN MILL PRODUCTS INSPECTOR midazolam (VERSED) injection PRN, Starting on Tue03/24/18 at 0844, Until Tue03/24/18 at 0953, Anesthesia Intra-Op Given 03/24/2018 8:44 AM GRAIN MILL PRODUCTS INSPECTOR 2 mg propofol (DIPRIVAN) IV bolus Intravenous, Continuous PRN, Starting on Tue03/24/18 at 0806, Until Tue03/24/18 at 0953, Anesthesia Intra-Op New Bag 03/24/2018 8:06 AM GRAIN MILL PRODUCTS INSPECTOR 100 mcg/kg/min 71.3 mL/hr sodium chloride 0.9% infusion Continuous PRN, Starting on Tue03/24/18 at 0810, Until Tue03/24/18 at 0953, Anesthesia Intra-Op New Bag 03/24/2018 8:10 AM GRAIN MILL PRODUCTS INSPECTOR documented in this encounter Additional Health Concerns Infection Onset Date Last Indicated Resolved Time MRSA Comment:Negative MRSA 05/201903/11/2017 03/11/2017 10/03/2019 10:08 AM CDT documented as of this encounter Care Teams Quality Assurance Manager Relationship Specialty Start Date End Date [place] [phone] PCP - General FAMILY PRACTICE 10/27/15 12/02/21 Stanislaw [place] [address] CARDIOVASCULAR DISEASE 10/27/15 10/24/18 Evar[place] [phone] [place] [employer] CARDIOVASCULAR DISEASE 08/19/16 Raul [place] [address] CLINICAL CARDIAC ELECTROPHYSIOLOGY 06/16/17 [place] [address] CARDIOVASCULAR DISEASE 06/16/17 07/10/19 Dveen [place] [phone] Enterprise Records Analyst INTERVENTIONAL CARDIOLOGY 03/21/18 10/24/18 documented as of this encounter
--- OUTSIDE RECORDS SUMMARY | 2024-04-23 04:30 | XMS_ITS | Encounter Summary ---
Author Organization [facility] Address [address] [place] [address]. [place] [address] [place] [address] Care Team Providers Care Property Manager Name Role Phone Vernon Mercedes MD Primary Care Provider [phone] Stanislaw Rhodes MD Unavailable Unavailab le Reason for Visit * Reason Onset Date Comments Request Note (Return To Work) 05/21/2016 Pt needs return to work letter; he is there today and had his procedure was on Tuesday. 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 Faxed to Pt work today. F FIELD ENGINEER documented in this encounter Plan of Treatment Upcoming Encounters Date Type Department Care Team (Late st Contact Info) Description 04/25/2024 11:00 AM STAFF FIELD ENGINEER Appointment [facility] [address] [place] [address] Ti Bonilla MD [address] [place] [phone] 05/23/2024 3:30 PM STAFF FIELD ENGINEER Office Visit [facility] [address] [place] [address] Jyoti Escobar MD [address] [place] [phone] documented as of this encounter Visit Diagnoses Not on filedocumented in this encounter Care Teams Property Manager Relationship Specialty Start Date End Date Vernon Mercedes MD [address] [place] [address] PCP - General FAMILY PRACTICE 10/27/15 12/02/21 Stanislaw Rhodes MD [address] [place] [address] CARDIOVASCULAR DISEASE 10/27/15 10/24/18 documented as of this encounter
--- OUTSIDE RECORDS SUMMARY | 2024-04-23 04:30 | XMS_ITS | Encounter Summary ---
Author Organization [facility] Address [address] [place] [address]. [place], [place] [address] [place] [address] Care Team Providers Care Technical Support Manager Name Role Phone Vernon Mercedes MD Primary Care Provider [phone] Stanislaw Rhodes MD Unavailable Unavailab Evaristo Ying MD Unavailable UnavailRaul Suresh MD Unavailable UnavailMyah Elena NP Unavailable Unavailable Deven Cleary MD Unavailable Unavailable Encounter Details Date Type Department Care Team (Late st Contact Info) Description 04/28/[address] 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 [address] [place] [address] Ti Bonilla MD [address] [place] [phone] 05/23/2024 3:30 PM MEMBER SERVICES REPRESENTATIVE Office Visit [facility] [address] [place] [address] Jyoti Escobar MD [address] [place] [address] documented as of this encounter Visit Diagnoses Not on filedocumented in this encounter Additional Health Concerns Infection Onset Date Last Indicated Resolved Time MRSA Comment:Negative MRSA 05/201903/11/2017 03/11/2017 10/03/2019 10:08 AM CDT documented as of this encounter Care Teams Technical Support Manager Relationship Specialty Start Date End Date Vernon Mercedes MD [address] [place] [phone] PCP - General FAMILY PRACTICE 10/27/15 12/02/21 Stanislaw Rhodes MD [address] [place] [phone] CARDIOVASCULAR DISEASE 10/27/15 10/24/18 [place] [phone] [place] Speeder Machine Operator CARDIOVASCULAR DISEASE 08/19/16 [place] [address] CLINICAL CARDIAC ELECTROPHYSIOLOGY 06/16/17 [place] [address] CARDIOVASCULAR DISEASE 06/16/17 07/10/19 [place] [phone] Radiologic Technologist Chief INTERVENTIONAL CARDIOLOGY 03/21/18 10/24/18 documented as of this encounter
--- OUTSIDE RECORDS SUMMARY | 2024-04-23 04:30 | XMS_ITS | Encounter Summary ---
Author Organization [facility] Address [address] [place] [address]. 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 [place] [address] Ti Bonilla MD [address] [place] [phone] 05/23/2024 3:30 PM STANDARDS ANALYST Office Visit [facility] [phone] Jyoti Escobar MD [address] [place] [address] documented as of this encounter Procedures Procedure Name Priority Date/Time Associated Diagnosis Comments XR CHEST PA+LAT 05/20/2016 6:50 AM STANDARDS ANALYST documented in this encounter Results * XR CHEST PA+LAT (05/20/2016 6:50 AM STANDARDS ANALYST) Anatomical Region Laterality Modality Chest Radiographic Shannan ging 05/20/2016 6:50 AM STANDARDS ANALYST Narrative 05/20/2016 12:00 AM STANDARDS ANALYST [facility] ?? [place], [place] ?? Department of Radiology ? ELZA MCKEON MD: EVE CARRERA MD ?? Acct: [id number] ?? : 1960 Pt Type: REG SDC ?? Sex: M Ord Site: MAIN ? Study Date Accession # Procedure Code Procedure ?? 05/20/16 [id number] CXR2V XR Chest 2 View ? Signed ? EXAM: Frontal and Lateral Chest X-ray ? CLINICAL STATEMENT: ? Post Ablation ? COMPARISON: None available. ? TIME:05/20/2016 6:00 AM ? TECHNIQUE: Upright frontal and lateral views of the chest are obtained ? FINDINGS: ?? There are no focal pulmonary opacities, masses or pleural effusions. ? Cardiomediastinal contours are within normal limits. ? Osseous structures ??are unremarkable. ? IMPRESSION: ?? No acute cardiopulmonary process. ? Electronically Signed By: SONI HEALY MD 05/20/16 0652 ? Dictated On: 05/20/1650 ?? Interpreted By: SONI HEALY MD ?? Transcribed On: 05/20/16 0650 - INF[facility] ? CC: ? EVE CARRERA MD ?? Procedure Note Stephani Luz MD - 05/20/2016 [place], [place] Department of Radiology ELZA MCKEON MD: EVE CARRERA MD Acct: [id number] : 1960 Pt Type: REG SDC Sex: M Ord Site: MAIN Study Date Accession # Procedure Code Procedure 05/20/16 [id number] CXR2V XR Chest 2 View Signed EXAM: Frontal and Lateral Chest X-ray CLINICAL STATEMENT: Post Ablation COMPARISON: None available. TIME:05/20/2016 6:00 AM TECHNIQUE: Upright frontal and lateral views of the chest are obtained FINDINGS: There are no focal pulmonary opacities, masses or pleural effusions. Cardiomediastinal contours are within normal limits. Osseous structures are unremarkable. IMPRESSION: No acute cardiopulmonary process. Electronically Signed By: SONI HEALY MD 05/20/1652 Dictated On: 05/20/16649 Interpreted By: SONI HEALY MD Transcribed On: 05/20/1650 - [facility] CC: EVE CARRERA MD Eve Carrera MD GENERAL IMAGING Final Resul t documented in this encounter Visit Diagnoses Not on filedocumented in this encounter Care Teams Tugboat Captain Relationship Specialty Start Date End Date Vernon Mercedes MD [address] [place] [phone] PCP - General FAMILY PRACTICE 10/27/15 12/02/21 Stanislaw Rhodes MD [address] [place] [address] CARDIOVASCULAR DISEASE 10/27/15 10/24/18 documented as of this encounter
--- OUTSIDE RECORDS SUMMARY | 2024-04-23 04:30 | XMS_ITS | Encounter Summary ---
Author Organization [facility] Address [address] [place] [address]. [place] [address] [place] [address] Care Team Providers Care Machine Slat Basket Maker Name Role Phone Vernon Mercedes MD Primary Care Provider [phone] Stanislaw Rhodes MD Unavailable Unavailab Evaristo Ying MD Unavailable Unavailabl e Reason for Visit * Reason Onset Date Comments Appointment Request 05/23/2017 Due for reca ll, appt scheduled, letter sent Encounter Details Date Type Department Care Team (Late st Contact Info) Description 05/23/2017 Telephone [facility] [employer] [address] [place] [address] Myah Handley NP Appointment Request (Due for recall, appt scheduled, letter sent) Social History Tobacco Use Types Packs/Day Years [...] 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 TIC FABRICATOR documented in this encounter Plan of Treatment Upcoming Encounters Date Type Department Care Team (Late st Contact Info) Description 04/25/2024 11:00 AM PLASTIC FABRICATOR Appointment [facility] [address] [place] [address] Ti Bonilla MD [address] [place] [phone] 05/23/2024 3:30 PM PLASTIC FABRICATOR Office Visit [facility] [address] [place] [address] Jyoti Escobar MD [address] [place] [phone] documented as of this encounter Visit Diagnoses Not on filedocumented in this encounter Additional Health Concerns Infection Onset Date Last Indicated Resolved Time MRSA Comment:Negative MRSA 05/201903/11/2017 03/11/2017 10/03/2019 10:08 AM CDT documented as of this encounter Care Teams Machine Slat Basket Maker Relationship Specialty Start Date End Date Vernon Mercedes MD [address] [place] [address] PCP - General FAMILY PRACTICE 10/27/15 12/02/21 Stanislaw Rhodes MD [address] [place] [address] CARDIOVASCULAR DISEASE 10/27/15 10/24/18 Evaristo Allan MD [address] [place] [address] [place] [employer] CARDIOVASCULAR DISEASE 08/19/16 documented as of this encounter
--- OUTSIDE RECORDS SUMMARY | 2024-04-23 04:30 | XMS_ITS | Encounter Summary ---
Author Organization [facility] Address [address] [place] [address]. [place], [place] [address] [place] [address] Care Team Providers Care It Systems Analyst Consultant Name Role Phone Vernon Mercedes MD Primary Care Provider [phone] Stanislaw Rhodes MD Unavailable Unavailab Evaristo Ying MD Unavailable UnavailRaul Suresh MD Unavailable UnavailMyah Elena NP Unavailable Unavailable Deven Cleary MD Unavailable Unavailable Encounter Details Date Type Department Care Team (Late st Contact Info) Description 04/26/[address] 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 [address] [place] [address] Ti Bonilla MD [address] [place] [phone] 05/23/2024 3:30 PM SWAGER OPERATOR Office Visit [facility] [address] [place] [address] Jyoti Escobar MD [address] [place] [address] documented as of this encounter Visit Diagnoses Not on filedocumented in this encounter Additional Health Concerns Infection Onset Date Last Indicated Resolved Time MRSA Comment:Negative MRSA 05/201903/11/2017 03/11/2017 10/03/2019 10:08 AM CDT documented as of this encounter Care Teams It Systems Analyst Consultant Relationship Specialty Start Date End Date Vernon Mercedes MD [address] [place] [address] PCP - General FAMILY PRACTICE 10/27/15 12/02/21 Stanislaw Rhodes MD [address] [place] [address] CARDIOVASCULAR DISEASE 10/27/15 10/24/18 [place] [phone] [facility] Technician CARDIOVASCULAR DISEASE 08/19/16 [place] [address] CLINICAL CARDIAC ELECTROPHYSIOLOGY 06/16/17 [place] [address] CARDIOVASCULAR DISEASE 06/16/17 07/10/19 [place] [address] [employer] [facility] INTERVENTIONAL CARDIOLOGY 03/21/18 10/24/18 documented as of this encounter
--- OUTSIDE RECORDS SUMMARY | 2024-04-23 04:30 | XMS_ITS | Encounter Summary ---
Author Organization [facility] Address [address] [place] [address]. [place], [place] [address] [place] [address] Care Team Providers Care Book Salesman Name Role Phone Vernon Mercedes MD Primary Care Provider [phone] Stanislaw Rhodes MD Unavailable Unavailab Evaristo Ying MD Unavailable Unavailabl Raul Duran MD Unavailable UnavailMyah Elena NP Unavailable Unavailable Deven Cleary MD Unavailable Unavailable Danny Blackwell MD Unavailable [phone] Gayle Arce SCHOOL BUS DRIVER/TEACHER ASSISTANT, [employer] Unavailable [phone] Ti Bonilal MD Primary Care Provider [phone] Mendel Shah DPM Unavailable [phone] Jyoti Escobar MD Unavailable [phone] Encounter Details Date Type Department Care Team (Late st Contact Info) Description 03/21/2018 Abstract [facility] [address] [place] [address] Deven Cleary MD Social History Tobacco Use [...] 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 [address] [place] [address] [place] [address] Ti Bonilla MD [address] [place] [phone] 05/23/2024 3:30 PM SURGICAL PROCESSOR Office Visit [facility] [address] [place] [address] Jyoti Escobar MD [address] [place] [phone] documented as of this encounter Procedures Procedure Name Priority Date/Time Associated Diagnosis Comments BASIC METABOLIC PANEL Routine 03/20/2018 4:09 PM SURGICAL PROCESSOR CBC, AUTO, NO DIFF Routine 03/20/2018 4: 09 PM SURGICAL PROCESSOR documented in this encounter Results * BASIC METABOLIC PANEL (03/20/2018 4:09 PM SURGICAL PROCESSOR) SODIUM S/P/B 135 POTASSIUM S/P/B 4.1 CO2 28 CHLORIDE S/P/B 97 GLUCOSE 518 mg/dL CALCIUM S/P/B 9.1 BUN 20 CREATININE S/P/B 1.12 0.7 - 1.3 EGFR NON-AFR. AMER. 71 <=90 03/20/2018 4:09 PM SURGICAL PROCESSOR [facility] Final Result * CBC, AUTO, NO DIFF (03/20/2018 4:09 PM SURGICAL PROCESSOR) WBC 7.0 RBC 4.55 HGB 13.0 HCT 39.3 MCV 86 MCH 28.6 MCHC 13.1 RDW 13.1 PLT 255 03/20/2018 4:09 PM SURGICAL PROCESSOR [facility] Final Result documented in this encounter Visit Diagnoses Not on filedocumented in this encounter Additional Health Concerns Infection Onset Date Last Indicated Resolved Time MRSA Comment:Negative MRSA 05/201903/11/2017 03/11/2017 10/03/2019 10:08 AM CDT COVID-19 Rule Out 10/12/2019 10/12/2019 10/13/2019 9:43 PM CDT COVID-19 Rule Out 04/16/2021 04/16/2021 04/16/2021 12:50 PM SURGICAL PROCESSOR COVID-19 Confirmed 04/16/2021 04/16/2021 12:32 AM SURGICAL PROCESSOR COVID-19 Rule Out 05/23/2021 05/23/2021 05/25/2021 3:02 PM SURGICAL PROCESSOR COVID-19 Rule Out 05/25/2021 05/25/2021 05/26/2021 3:50 AM SURGICAL PROCESSOR COVID-19 Rule Out 08/31/2021 08/31/2021 09/01/2021 8:03 PM CDT COVID-19 Rule Out 11/14/2021 11/14/2021 11/14/2021 6:17 PM CDT documented as of this encounter Care Teams Book Salesman Relationship Specialty Start Date End Date Vernon Mercedes MD [address] [place] [address] PCP - General FAMILY PRACTICE 10/27/15 12/02/21 Ti Bonilla MD [address] [place] [phone] PCP - General FAMILY PRACTICE 12/03/21 Stanislaw Rhodes MD [address] [place] [address] CARDIOVASCULAR DISEASE 10/27/15 10/24/18 Evaristo Allan MD [address] [place] [address] [place] [employer] Mechan[employer] CARDIOVASCULAR DISEASE 08/19/16 Raul Santana MD [address] [place] [address] CLINICAL CARDIAC ELECTROPHYSIOLOGY 06/16/17 Myah Handley NP [address] [place] [address] CARDIOVASCULAR DISEASE 06/16/17 07/10/19 Deven Cleary MD [address] [place] [address] Prosthetic Technician INTERVENTIONAL CARDIOLOGY 03/21/18 10/24/18 Danny Blackwell MD [address] [place] [address] ORTHOPAEDIC SURGERY 05/01/19 Gayle Arce, SCHOOL BUS DRIVER/TEACHER ASSISTANT, [employer] [address] [place] [phone] NURSE PRACTITIONER 03/03/20 Mendel Shah DPM [address] [place] [address] Consulting Physician PODIATRY/SURGERY 06/27/23 06/26/24 Jyoti Escobar MD [address] [place] [phone] INTERVENTIONAL CARDIOLOGY 12/27/23 documented as of this encounter
--- OUTSIDE RECORDS SUMMARY | 2024-04-23 04:30 | XMS_ITS | Encounter Summary ---
Author Organization [facility] Address [address] [place] [address]. 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 (CMS/HCC) Chronic total occlusion of coronary artery Procedures XA CORONARY INTERVENTION Edna Cleary MD [address] [place] [address] [place] [address] [place] [address] Phone: tel: fax: Referral ID Status Reason Start Date Expiration Date Visits Re quested Visits Authorized [id number] Closed 03/07/2018 04/07/2019 1 1 ONARY NURSE PRACTITIONER Reason for Visit * Procedure (Routine) - Closed Specialty Diagnoses / Procedures Referred By Charito ledbetter Referred To Contact INTERVENTIONAL CARDIOLOGY Diagnoses 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 5 oz) 03/24/2018 6:41 AM PULMONARY NURSE PRACTITIONER Height 174 cm (5' 8.5 ) 03/24/2018 6:41 AM PULMONARY NURSE PRACTITIONER Body Mass Index 39.24 03/24/2018 6:41 AM PULMONARY NURSE PRACTITIONER documented in this encounter Discharge Instructions * Discharge Instructions* Sariah Nichols RN - 03/24/2018 10:28 AM PULMONARY NURSE PRACTITIONER You may resume your metformin on 03/26/18 Post Catheterization Discharge - Radial Approach 1. [...] not operate equipment, such as an ATV, pot filler, chainsaw, or motorcycle for 48 hours. 7. Notify your utilization supervisor of swelling or drainage at the site, or numbness, tingling, coldness, or cramping in hand/arm during rest or activity. Soreness is normal. Take Tylenol for pain. 8. Notify your utilization supervisor or your primary care physician if you [...] call your primary care physician or your utilization supervisor [phone]. ONARY NURSE PRACTITIONER * Attachments The following attachments cannot be sent through Care Everywhere. * MODERATE SEDATION IN ADULTS DISCHARGE INSTRUCTIONS (MALTESE) documented in this encounter Medications at Time [...] as of this encounter H&P Notes * Edna Cleary MD - 03/24/2018 7:15 AM CST HISTORY AND PHYSICAL INTERVAL NOTE: I have reviewed Elza Mckeon History & Physical which was performed within the past 30 days. After examining Elza Mckeon, no change has occurred in the patient's condition since the H&P was completed. Informed Consent Discussion: Risks, benefits, alternatives as well as the consequences of not performing the surgery/procedure were discussed with the patient and/or family/personal sales representative consultant. Questions were answered and the patient/family/personal sales representative consultant verbalized understanding and desires to proceed. ONARY NURSE PRACTITIONER Source Note - Edna Cleary MD - 03/06/2018 2:45 PM PULMONARY NURSE PRACTITIONER Reason for Visit: No chief complaint on file. History of Present Illness: It was a pleasure to to see your patient, Elza Mckeon today in the office. He is a 58-year-old male with Patient Active Problem List Diagnosis ??? Cardiac dysrhythmia ??? Hypertension ??? Paroxysmal atrial fibrillation (HCC) ??? snf current use of anticoagulant therapy ??? Obstructive sleep apnea ??? Hyperlipidemia ??? Chest pain ??? Diabetes (HCC) ??? 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 Chronic total occlusion of yurok coronary artery He has a chronic total occlusion of the RCA. He has [place] Cardiovascular Society Class 3 angina despite his [...] occlusion. RECOMMENDATIONS: It was great to see Elza Mckeon in the office today. As you may know, BINGO MANAGER PCI is very complex and associated with specific benefits and risks inherent to the procedure. I spent considerable time reviewing his previous angiograms as well as his noninvasive testing. I had a long discussion with Elza regarding his chronic total occlusion of the [...] as soon as possible and hopefully get Elza back to a better quality of life. I have also reviewed all of his ongoing cardiovascular issues, our instituted therapies and our surveillance strategies particularly as they interact with and impact the risks of BINGO MANAGER PCI. If any questions remain unanswered or any new questions arise, please do not hesitate to contact me. On behalf of Belkys Overton and Dr Allan, I would like to thank TON MERCEDES MD for allowing us to care for Elza Mckeon. Medications: Current Outpatient Medications: ??? amitriptyline 50 [...] CATHETERIZATION 01/04/2018 occluded prox RCA w/well developed aeqv-dh-qgczd collaterals lvef 55-60% ??? FRACTURE SURGERY ??? [...] Not on file Occupational History ??? 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 Smoking status: Never Smoker [...] normal. Diagnoses/Impression: 1. Chronic total occlusion of yurok coronary artery 2. 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 [facility] Procedure Note Elza Mckeon 1960 [facility] [id number] 03/24/2018 Pre-Op Diagnosis: I25.82 I25.118 Post-Op Diagnosis: Same Procedure: Intravascular Ultrasound and BINGO MANAGER PCI Vascular Access: Right Radial Artery and Left Radial Artery Indications: I25.118 and I25.82 Findings: Lesion 1: J-BINGO MANAGER 1 prox mid RCA 100% Successful AWE 3.5 NC PTCA IVUS 3.5 x 38 MARLIN 4.0 NC PTCA IVUS 4.0 NC PTCA 0% devonte III Complications: None Specimens: None Anesthesia: MAC Surgeon: EDNA CLEARY MD Assistants: None Estimated Blood Loss: Minimal Condition: Good Comments: none Assessment and Recommendations/Plan: Continue with Guideline Directed Medical therapy EDNA CLEARY MD Date: 03/24/2018 Time: 9:35 AM ONARY NURSE PRACTITIONER documented in this encounter Plan of Treatment Upcoming Encounters Date Type Department Care Team (Late st Contact Info) Description 04/25/2024 11:00 AM PULMONARY NURSE PRACTITIONER Appointment [facility] [address] [place] [address] [place] [address] Ti Bonilla MD [address] [place] [phone] 05/23/2024 3:30 PM PULMONARY NURSE PRACTITIONER Office Visit [facility] [address] [place] [address] Jyoti Escobar MD [address] [place] [phone] documented as of this encounter Procedures Procedure Name Priority Date/Time Associated Diagnosis Comments ECG 12-LEAD STAT 03/24/2018 10:32 AM PULMONARY NURSE PRACTITIONER POCT GLUCOSE - RAMOS DOCKED DEVICE Routine 03/24/2018 10:05 AM PULMONARY NURSE PRACTITIONER ACT (HMT OR LHMT) Routine 03/24/2018 9:0 9 AM PULMONARY NURSE PRACTITIONER ACT (HMT OR LHMT) Routine 03/24/2018 8:5 8 AM PULMONARY NURSE PRACTITIONER XA CORONARY INTERVENTION Routine 03/24/2018 8:43 AM PULMONARY NURSE PRACTITIONER 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 [facility] ?[address] [place], [place] ??[address] ? Test Date: ?2018-03-24 Pat Name: ? ELZA MCEKON ? Department: ?? 1 ? Room: ? [id number] Gender: ? Male ? Machine Heel Sprayer: ?? SC : ?1960 ? Requested By: EDNA CLEARY Order Number: [id number] ? Reading : ?? Elza Davis ? Measurements Intervals ?Foreman ? Rate: ? 60 ? P: ?73 NV: ? 136 ?QRS: ?49 QRSD: ? 116 ?T: ?23 QT: ? 447 ? QTc: ?447 ? Interpretive Statements SINUS RHYTHM WITH SINUS ARRHYTHMIA Right Bundle Branch Block ONARY NURSE PRACTITIONER Procedure Note Elza Davis MD - 03/24/2018 [facility] [address] [place] [address] Test Date: 2018-03-24 Pat Name: ELZA MCKEON Department: 1 Room: [address] Gender: Male Machine Heel Sprayer: SC : 1960 Requested By: EDNA CLEARY Order Number: [id number] Jose Antonio OSMAN: Elza Davis Measurements Intervals Foreman Rate: 60 P: 73 NV: 136 QRS: 49 QRSD: 116 T: 23 QT: 447 QTc: 447 Interpretive Statements SINUS RHYTHM WITH SINUS ARRHYTHMIA Right Bundle Branch Block ONARY NURSE PRACTITIONER us Edna Cleary MD ECG ORDERABLES Final Result Performing Organization Address [facility] Co de Phone Number [facility] * (ABNORMAL) POCT glucose (03/24/2018 10:05 AM PULMONARY NURSE PRACTITIONER) GLUCOSE POC 265(H) 70 - 109 03/24/2018 10:06 AM PULMONARY NURSE PRACTITIONER [facility] ORDERS INTERFACE 03/24/2018 10:0 5 AM PULMONARY NURSE PRACTITIONER us Edna Cleary MD POCT ORDERABLES - DEVICE Final R esult Performing Organization Address [facility] de Phone Number [facility] ORDERS INTERFACE US * (ABNORMAL) ACT (HMT OR LHMT) (03/24/2018 9:09 AM PULMONARY NURSE PRACTITIONER) ACTIVATED CLOTTING TIME (ACT HMT OR LMT) 246(H) 74 - 137 SEC 03/24/2018 9:13 AM PULMONARY NURSE PRACTITIONER [facility] 03/24/2018 9:09 AM PULMONARY NURSE PRACTITIONER us Edna Cleary MD LAB BLOOD ORDERABLES Final Resul t Performing Organization Address [facility] de Phone Number [facility] [address] [place] [address], [place] [phone] * (ABNORMAL) ACT (HMT OR LHMT) (03/24/2018 8:58 AM PULMONARY NURSE PRACTITIONER) ACTIVATED CLOTTING TIME (ACT HMT OR LMT) 654(H) 74 - 137 SEC 03/24/2018 9:08 AM PULMONARY NURSE PRACTITIONER [facility] 03/24/2018 8:58 AM PULMONARY NURSE PRACTITIONER us Edna Cleary MD LAB BLOOD ORDERABLES Final Resul t Performing Organization Address [facility] de Phone Number [facility] [address] [place] [address], [place] [phone] * XA CORONARY INTERVENTION (03/24/2018 8:43 AM PULMONARY NURSE PRACTITIONER) Anatomical Region Laterality Modality Cardiac Joint Runner 03/24/2018 8:00 AM PULMONARY NURSE PRACTITIONER us Edna Cleary MD MANAGER MONEY Final Result * ECG 12 lead (03/24/2018 6:45 AM PULMONARY NURSE PRACTITIONER) 03/24/2018 6:45 AM PULMONARY NURSE PRACTITIONER Narrative [facility] - 03/24/2018 12:57 PM PULMONARY NURSE PRACTITIONER ? [facility] ?[address] [place], [place] ??[address] ? Test Date: ?2018-03-24 Pat Name: ? ELZA MCKEON ? Department: ?? 1 ? Room: ? [id number] Gender: ? Male ? Machine Heel Sprayer: ?? GS : ?1960 ? Requested By: EDNA CLEARY Order Number: [id number] ? Jose Antonio OSMAN: ?? Elza Davis ? Measurements Intervals ?Foreman ? Rate: ? 65 ? P: ?57 NV: ? 138 ?QRS: ?38 QRSD: ? 121 ?T: ?3 QT: ? 419 ? QTc: ?438 ? Interpretive Statements SINUS RHYTHM WITH SINUS ARRHYTHMIA RIGHT BUNDLE BRANCH BLOCK ONARY NURSE PRACTITIONER Procedure Note Elza Davis MD - 03/24/2018 [facility] [address] [place] [address] Test Date: 2018-03-24 Pat Name: [facility] Department: 1 Room: [facility] Gender: Male Machine Heel Sprayer: : 1960 Requested By: EDNA CLEARY Order Number: [id number] Reading MD: Elza Davis Measurements Intervals Foreman Rate: 65 P: 57 NV: 138 QRS: 38 QRSD: 121 T: 3 QT: 419 QTc: 438 Interpretive Statements SINUS RHYTHM WITH SINUS ARRHYTHMIA RIGHT BUNDLE BRANCH BLOCK ONARY NURSE PRACTITIONER us Edna Cleary MD ECG ORDERABLES Final Result [facility] documented in this encounter Visit Diagnoses Diagnosis 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 Scheduled Medication Order 03/22/2018 03/23/2018 03/24/2018 aspirin chewable tablet 81 mg 81 mg, Oral, Daily, First dose on Tue03/25/18 at 0900, Until Discontinued, Post-Op ticagrelor (BRILINTA) tablet 90 mg 90 mg, Oral, 2 times daily, First dose on Tue03/24/18 at 2100, Until Discontinued, Post-Op Continuous Medication Order 03/22/2018 03/23/2018 03/24/2018 sodium chloride 0.9% infusion (CANCELED) at 100 mL/hr, Intravenous, Continuous, Starting on Tue03/24/18 at 0645, Until Tue03/24/18 at 1033, Pre-Op 0721 (New Bag - Prov ider: Manisha Moore RN) sodium chloride 0.9% infusion at 118.8 mL/hr, Intravenous, Continuous, Starting on Tue03/24/18 at 1045, Until Tue03/24/18 at 1344, Post-Op 1045 (Due) PRN Medication Order 03/22/2018 03/23/2018 03/24/2018 acetaminophen (TYLENOL) tablet 325 mg 325 mg, Oral, Every 4 hours PRN, Mild pain (Scale 1 - 3), Starting on Tue03/24/18 at 1024, Until Tue03/24/18 at 1641, Maximum dose of acetaminophen is 4000 mg from all sources in 24 hours., Post-Op atropine injection 0.5 mg 0.5 mg, Intravenous, Once as needed, Other, for heart rate less than 50 bpm and / or SBP less than 90 mmHg, 1 dose, Starting on Tue03/24/18 at 1024, Until Tue03/24/18 at 1641, Post-Op jtywlrads-ocodtykm-jwgdmiwexih (MAALOX, MYLANTA EXTRA STRENGTH) [id number] mg/30mL suspension 10 mL, Oral, Every 4 hours PRN, Indigestion, Heartburn, Starting on Tue03/24/18 at 1024, Until Tue03/24/18 at 1641, Shake Well, Post-Op nitroglycerin (NITROSTAT) SL tablet 0.4 mg 0.4 mg, Sublingual, Every 5 min PRN, Chest Pain, 3 doses, Starting on Tue03/24/18 at 1024, Until Tue03/24/18 at 1641, Notify MD if not relieved by one tablet. HOLD for SBP less than 90., Post-Op ondansetron (ZOFRAN) injection 4 mg 4 mg, Intravenous, Every 4 hours PRN, Nausea, Vomiting, Starting on Tue03/24/18 at 1024, Until Tue03/24/18 at 1641, Post-Op senna-docusate (SENOKOT-S) 8.6-50 MG tablet 2 tablet 2 tablet, Oral, Nightly PRN, Constipation, Starting on Tue03/24/18 at 1024, Until Tue03/24/18 at 1641, Post-Op documented in this encounter Additional Health Concerns Infection Onset Date Last Indicated Resolved Time MRSA Comment:Negative MRSA 05/201903/11/2017 03/11/2017 10/03/2019 10:08 AM CDT documented as of this encounter Care Teams Triage Technician Relationship Specialty Start Date End Date [place] [place] [phone] PCP - General FAMILY PRACTICE 10/27/15 12/02/21 Stanislaw [place] [phone] CARDIOVASCULAR DISEASE 10/27/15 10/24/18 Elza [place] [address] [phone] [employer] Sustainability Communicator CARDIOVASCULAR DISEASE 08/19/16 Raul Santana MD [address] [place] [phone] CLINICAL CARDIAC ELECTROPHYSIOLOGY 06/16/17 Myah Handley NP [address] [place] [place] [phone] CARDIOVASCULAR DISEASE 06/16/17 07/10/19 Edna Cleary MD [address] [phone] Financial Adviser INTERVENTIONAL CARDIOLOGY 03/21/18 10/24/18 documented as of this encounter
--- OUTSIDE RECORDS SUMMARY | 2024-04-23 04:30 | XMS_ITS | Encounter Summary ---
Author Organization [facility] Address [address] [place] [address]. [place], [place] [address] [place] [address] Care Team Providers Care Fund Accounting Manager Name Role Phone Vernon Mercedes MD Primary Care Provider [phone] Stanislaw Rhodes MD Unavailable UnavailEvaristo Mayo MD Unavailable UnavailRaul Suresh MD Unavailable Unavailabl Myah Gee NP Unavailable Unavailable Reason for Referral * Procedure (Routine) - Closed Specialty Diagnoses / Procedures Referred By Contact Referred To Contact INTERVENTIONAL CARDIOLOGY Diagnoses Coronary artery disease of [place] artery of [place] heart with stable angina pectoris (CMS/HCC) Chronic total occlusion of coronary artery Procedures XA CORONARY INTERVENTION Deven Cleary MD [facility] [address] [place] [address] Phone: tel: fax: Referral ID Status Reason Start Date Expiration Date Visits Re quested Visits Authorized [id number] Closed 03/07/2018 04/07/2019 1 1 PSYCH Reason for Visit * Reason Onset Date Comments Schedule Procedure 03/07/2018 Encounter Details Date Type Department Care Team (Late st Contact Info) Description 03/07/2018 Telephone [email or web address] [place] [address] [place] [address] Deven Cleary MD Schedule Procedure Social History Tobacco Use [...] 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 Informed that procedure is scheduled on 03/24/2018 at 8:00 AM as discussed in clinic yesterday. Reviewed and discuss medications and pre-procedure instructions. Informed that I will send a letter with instruction. Understanding verbalized. Encouraged to call with any questions. PSYCH documented in this encounter Plan of Treatment Upcoming Encounters Date Type Department Care Team (Late st Contact Info) Description 04/25/2024 11:00 AM RN PSYCH Appointment [facility] [address] [place] [address] [place] [address] Ti Bonilla MD [address] [place] [phone] 05/23/2024 3:30 PM RN PSYCH Office Visit [facility] [place] [address] Jyoti Escobar MD [address] [place] [phone] documented as of this encounter Results * XA CORONARY INTERVENTION (03/24/2018 8:43 AM RN PSYCH) Anatomical Region Laterality Modality Cardiac Cloth [place] 03/24/2018 8:00 AM RN PSYCH us Deven Cleary MD [employer]SROOM TECHNOLOGY COACH Final Result documented in this encounter Visit Diagnoses Diagnosis Coronary artery disease of [place] artery of [place] heart with stable angina pectoris (CMS/HCC)- Primary Chronic total occlusion of coronary artery Pre-procedure lab exam Pre-procedural laboratory examination documented in this encounter Additional Health Concerns Infection Onset Date Last Indicated Resolved Time MRSA Comment:Negative MRSA 05/201903/11/2017 03/11/2017 10/03/2019 10:08 AM CDT documented as of this encounter Care Teams Fund Accounting Manager Relationship Specialty Start Date End Date Vernon Mercedes MD [address] [place] [phone] PCP - General FAMILY PRACTICE 10/27/15 12/02/21 Stanislaw Rhodes MD [address] [place] [address] [phone] CARDIOVASCULAR DISEASE 10/27/15 10/24/18 Evaristo Allan MD [address] [place] [address] [phone] [employer] Paper Tube Grader CARDIOVASCULAR DISEASE 08/19/16 Raul Santana MD [address] [place] [phone] CLINICAL CARDIAC ELECTROPHYSIOLOGY 06/16/17 Myah Handley NP [address] [place] [address] [phone] CARDIOVASCULAR DISEASE 06/16/17 07/10/19 documented as of this encounter
--- OUTSIDE RECORDS SUMMARY | 2024-04-23 04:30 | XMS_ITS | Encounter Summary ---
Author Organization [facility] Address [address] [place] [address]. [place], [place] [address] [place] [address] Care Team Providers Care Nail Making Machine Tender Name Role Phone Vernon Mercedes MD Primary Care Provider [phone] Stanislaw Rhodes MD Unavailable Unavailab le Reason for Referral * Imaging (Routine) - Closed Specialty Diagnoses / Procedures Referred By Contac t Referred To Contact CARDIOLOGY Diagnoses Atrial fibrillation, unspecified type ([facility]) Procedures USE ECHOCARDIOGRAM Evaristo Allan MD [facility] [address] [place] [phone] Phone: tel: fax: Referral ID Status Reason Start Date Expiration Date Visits Re quested Visits Authorized [id number] Closed 07/13/2016 08/22/2016 1 1 Encounter Details Date Type Department Care Team (Late st Contact Info) Description 07/13/2016 Orders Only [facility] [address] [place] [address] Evaristo Allan MD Social History [...] 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 [address] [place] [address] Ti Bonilla MD [address] [place] [phone] 05/23/2024 3:30 PM ACUPUNCTURIST Office Visit [facility] [address] [place] [address] Jyoti Escobar MD [address] [place] [phone] documented as of this encounter Procedures Procedure Name Priority Date/Time Associated Diagnosis Comments USE ECHOCARDIOGRAM Routine 07/14/2016 Atrial fibrillation, unspecified type ([facility]) documented in this encounter Results * USE ECHOCARDIOGRAM (07/14/2016) Anatomical Region Laterality Modality Cardiac Echocardiogram Evaristo Allan MD ECHO Final Resul t documented in this encounter Visit Diagnoses Diagnosis Atrial fibrillation, unspecified type ([facility])- Primary documented in this encounter Care Teams Nail Making Machine Tender Relationship Specialty Start Date End Date Vernon Mercedes MD [address] [place] [phone] PCP - General FAMILY PRACTICE 10/27/15 12/02/21 Stanislaw Rhodes MD [address] [place] [address] CARDIOVASCULAR DISEASE 10/27/15 10/24/18 documented as of this encounter
--- OUTSIDE RECORDS SUMMARY | 2024-04-23 04:30 | XMS_ITS | Encounter Summary ---
Author Organization [facility] Address [address] [place] [address]. [place], [place] [address] [place] [address] Care Team Providers Care Senior Benefits Manager Name Role Phone Vernon Mercedes MD Primary Care Provider [phone] Stanislaw Rhodes MD Unavailable Unavailab Evaristo Ying MD Unavailable UnavailRaul Suresh MD Unavailable Unavailabl Myah Gee NP Unavailable Unavailable Reason for Referral * Imaging (Routine) - Closed Specialty Diagnoses / Procedures Referred By Conttianna t Referred To Contact CARDIOLOGY Diagnoses Chest pain Procedures NM PHARM NUC STRESS TEST 1DAY Evaristo Allan MD [address] [place] [address] [place] [address] [facility] [address] [place] [phone] Phone: tel: fax: Referral ID Status Reason Start Date Expiration Date Visits Re quested Visits Authorized [id number] Closed 12/16/2017 01/30/2018 1 1 Encounter Details Date Type Department Care Team (Late st Contact Info) Description 12/16/2017 Orders Only [facility] [address] [place] [address] Evaristo Allan MD Social History [...] st Contact Info) Description 04/25/2024 11:00 AM COMMODITY LEAD Appointment [facility] [address] [place] [address] Ti Bonilla MD [address] [place] [phone] 05/23/2024 3:30 PM COMMODITY LEAD Office Visit [facility] [address] [place] [address] Jyoti Escobar MD [address] [place] [address] documented as of this encounter Results * NM PHARM NUC STRESS TEST 1DAY (12/26/2017) Anatomical Region Laterality Modality Cardiac Nuclear Medicine Evaristo Allan MD NUC MED Final Resul t documented in this encounter Visit Diagnoses Diagnosis Chest pain- Primary Chest pain, unspecified documented in this encounter Additional Health Concerns Infection Onset Date Last Indicated Resolved Time MRSA Comment:Negative MRSA 05/201903/11/2017 03/11/2017 10/03/2019 10:08 AM CDT documented as of this encounter Care Teams Senior Benefits Manager Relationship Specialty Start Date End Date Vernon Mercedes MD [address] [place] [address] PCP - General FAMILY PRACTICE 10/27/15 12/02/21 Stanislaw Rhodes MD [address] [place] [address] CARDIOVASCULAR DISEASE 10/27/15 10/24/18 Evaristo Allan MD [address] [place] [address] [place] Mathematical Statistician CARDIOVASCULAR DISEASE 08/19/16 Raul Santana MD [address] [place] [address] CLINICAL CARDIAC ELECTROPHYSIOLOGY 06/16/17 Myah Handley NP [address] [place] [address] CARDIOVASCULAR DISEASE 06/16/17 07/10/19 documented as of this encounter
--- OUTSIDE RECORDS SUMMARY | 2024-04-23 04:30 | XMS_ITS | Encounter Summary ---
Author Organization [facility] Address [address] [place] [address]. [place], [place] [address] [place] [address] Care Team Providers Care Deicer Repairer Name Role Phone Vernon Mercedes MD Primary Care Provider [phone] Stanislaw Rhodes MD Unavailable Unavailab Evaristo Ying MD Unavailable UnavailRaul Suresh MD Unavailable Unavailabl Myah Gee NP Unavailable Unavailable Reason for Referral * Imaging (Routine) - Closed Specialty Diagnoses / Procedures Referred By Contac t Referred To Contact CARDIOLOGY Diagnoses Angina effort ([facility]/HCC) Abnormal stress test Diabetes (CMS/HCC [facility]) Hyperlipidemia Procedures XA [facility] POSS Evaristo Allan MD [address] 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 [address] [place] [address] Ti Bonilla MD [address] [place] [phone] 05/23/2024 3:30 PM COMPOSITION MOLDER Office Visit [facility] [facility] [address] [place] [phone] Jyoti Escobar MD [address] [place] [phone] documented as of this encounter Results * XA [facility] POSS (01/04/2018 2:05 PM CDT) Anatomical Region Laterality Modality Cardiac Billing Representative 01/04/2018 1:30 PM CDT Evaristo Allan MD NETWORK FIREWALL ENGINEER Final Resul t documented in this encounter Visit Diagnoses Diagnosis Angina effort ([facility]/HCC)- Primary Other and unspecified angina pectoris Abnormal stress test Other nonspecific abnormal cardiovascular system function study Diabetes (CMS/HCC [facility]/HCC) Hyperlipidemia Other and unspecified hyperlipidemia documented in this encounter Additional Health Concerns Infection Onset Date Last Indicated Resolved Time MRSA Comment:Negative MRSA 05/201903/11/2017 03/11/2017 10/03/2019 10:08 AM CDT documented as of this encounter Care Teams Deicer Repairer Relationship Specialty Start Date End Date Vernon Mercedes MD [address] [place] [phone] PCP - General FAMILY PRACTICE 10/27/15 12/02/21 Stanislaw Rhodes MD [address] [place] [phone] CARDIOVASCULAR DISEASE 10/27/15 10/24/18 Evaristo Allan MD [address] [place] [phone] [place] Car Jockey CARDIOVASCULAR DISEASE 08/19/16 Raul Santana MD [address] [place] [phone] CLINICAL CARDIAC ELECTROPHYSIOLOGY 06/16/17 Myah Handley, TIMBER FALLER [address] [place] [phone] CARDIOVASCULAR DISEASE 06/16/17 07/10/19 documented as of this encounter
--- OUTSIDE RECORDS SUMMARY | 2024-04-23 04:30 | XMS_ITS | Encounter Summary ---
Author Organization [facility] Address [address] [place] [address]. 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 Left message for patient to call. LE CLEANER documented in this encounter Plan of Treatment Upcoming Encounters Date Type Department Care Team (Late st Contact Info) Description 04/25/2024 11:00 AM BOTTLE CLEANER Appointment [facility] [address] [place] [address] Ti Bonilla MD [address] [place] [phone] 05/23/2024 3:30 PM BOTTLE CLEANER Office Visit [facility] [address] [place] [address] Jyoti Escobar MD [address] [place] [address] documented as of this encounter Visit Diagnoses Not on filedocumented in this encounter Care Teams Medical Housekeeper Relationship Specialty Start Date End Date Vernon Mercedes MD [address] [place] [phone] PCP - General FAMILY PRACTICE 10/27/15 12/02/21 Stanislaw Rhodes MD [address] [place] [address] CARDIOVASCULAR DISEASE 10/27/15 10/24/18 documented as of this encounter
--- OUTSIDE RECORDS SUMMARY | 2024-04-23 04:30 | XMS_ITS | Encounter Summary ---
Author Organization [facility] Address [address] [place] [address]. [place], [place] [address] [place] [address] Care Team Providers Care Supervisor Welding Equipment Repairer Name Role Phone Vernon Mercedes MD Primary Care Provider [phone] Stanislaw Rhodes MD Unavailable Unavailab Evaristo Ying MD Unavailable UnavailRaul Suresh MD Unavailable UnavailMyah Elena NP Unavailable Unavailable Deven Cleary MD Unavailable Unavailable Encounter Details Date Type Department Care Team (Late Contact Info) Description 03/05/[address] [facility] [address] [place] [address] Vernon Mercedes MD [address] [place] [phone] Social History Tobacco Use Types Packs/Day Years [...] (Late Contact Info) Description 04/25/2024 11:00 AM RETAIL SECURITY PROFESSIONAL Appointment [facility] [address] [place] [address] Ti Bonilla MD [address] [place] [phone] 05/23/2024 3:30 PM RETAIL SECURITY PROFESSIONAL Office Visit [facility] [place] [address] Jyoti Escobar MD [address] [place], [place] [phone] documented as of this encounter Procedures Procedure Name Priority Date/Time Associated Diagnosis Comments COMPREHENSIVE METABOLIC PANEL Routine 03/05/2017 9:20 AM RETAIL SECURITY PROFESSIONAL LIPID PANEL Routine 03/05/2017 9:20 AM RETAIL SECURITY PROFESSIONAL CBC W/DIFF AUTOMATED Routine 03/05/2017 9:20 AM RETAIL SECURITY PROFESSIONAL documented in this encounter Results * (ABNORMAL) LIPID PANEL (03/05/2017 9:20 AM RETAIL SECURITY PROFESSIONAL) CHOLESTEROL 122 <200 MG/DL 03/05/2017 10:32 AM RETAIL SECURITY PROFESSIONAL [facility] TRIGLYCERIDES 79 <150 MG/DL 03/05/2017 10:32 AM RETAIL SECURITY PROFESSIONAL [facility] HDL 32(L) >40 MG/DL 03/05/2017 10:32 AM RETAIL SECURITY PROFESSIONAL [facility] LDL (CALCULATED) 74.2 <130 MG/DL 03/05/20 17 10:32 AM RETAIL SECURITY PROFESSIONAL [facility] Comment: AN LDL OF <100 IS OPTIMAL; HOWEVER, ELEVATED IS DEFINED >130.BY ATP III GUIDELINES, LDL GOALS ARE DEPENDENT UPON THE PATIENT'S OTHER RISK FACTORS. CHOL/HDL RATIO 3.8 0.0 - 5.0 03/05/2017 10:32 AM RETAIL SECURITY PROFESSIONAL [facility] 03/05/2017 9:20 AM RETAIL SECURITY PROFESSIONAL 03/05/2017 9:29 AM RETAIL SECURITY PROFESSIONAL us Generic Conversion Md [facility] Final R esult [facility] [address] [place] [address], * (ABNORMAL) COMPREHENSIVE METABOLIC PANEL (03/05/2017 9:20 AM RETAIL SECURITY PROFESSIONAL) [facility] Signature GLUCOSE 340(H) 70 - 99 MG/DL 03/05/2017 9:48 AM [facility] BUN 17 8 - 26 MG/DL 03/05/2017 9:48 AM [facility] CREATININE S/P/B 1.01 0.72 - 1.25 MG/DL 03/05/2017 9:48 AM [facility] SODIUM S/P/B 140 136 - 145 MMOL/L 03/05/2017 9:48 AM [facility] POTASSIUM S/P/B 4.6 3.5 - 5.1 MMOL/L 03/05/2017 9:48 AM [facility] CHLORIDE S/P/B 104 98 - 107 MMOL/L 03/05/2017 9:48 AM [facility] CO2 27.0 22.0 - 29.0 MMOL/L 03/05/2017 9:48 AM [facility] CALCIUM S/P/B 9.8 8.4 - 10.2 MG/DL 03/05/2017 9:48 AM [facility] BILIRUBIN TOTAL S/P/B 0.4 0.2 - 1.2 MG/DL 03/05/2017 9:48 AM [facility] TOTAL PROTEIN S/P/B 7.1 6.0 - 8.3 G/DL 03/05/2017 9:48 AM [facility] ALBUMIN S/P/B 3.8 3.5 - 5.2 G/DL 03/05/2017 9:48 AM [facility] AST 21 5 - 34 U/L 03/05/2017 9:48 AM [facility] ALT 48 0 - 55 U/L 03/05/2017 9:48 AM [facility] ALKALINE PHOSPHATASE S/P/B 90 50 - 136 U/L 03/05/2017 9:48 AM [facility] OSMOLALITY (CALC) 294 275 - 300 MOSM/KG 03/05/2017 9:48 AM [facility] A/G RATIO 1.2 1.0 - 1.6 RATIO 03/05/2017 9:48 AM [facility] BUN CREATININE RATIO 16.8 12 - 20 03/05/2017 9:48 AM [facility] ANION GAP 9.0 7 - 16 MMOL/L 03/05/2017 9:48 AM [facility] EGFR NON-AFR. AMER. >60 >60 ML/MIN/1.7 3 M2 03/05/2017 9:48 AM [facility] EGFR AFR. AMER. >60 >60 ML/MIN/1.7 3 M2 03/05/2017 9:48 AM [facility] 03/05/2017 9:20 AM RETAIL SECURITY PROFESSIONAL 03/05/2017 9:29 AM RETAIL SECURITY PROFESSIONAL us Generic Conversion Md [facility] Final R esult [facility] [address] [place] [address], * (ABNORMAL) CBC W/DIFF AUTOMATED (03/05/2017 9:20 AM RETAIL SECURITY PROFESSIONAL) WBC 6.6 4.5 - 10.8 x10'3/uL 03/05/2017 9:30 AM [facility] RBC 4.65 4.50 - 6.10 x10'6/uL 03/05/2017 9:30 AM [facility] HGB 13.0 13.0 - 18.0 G/DL 03/05/2017 9:30 AM [facility] HCT 40.4 37.0 - 52.0 % 03/05/2017 9:30 AM [facility] MCV 86.9 78.0 - 100.0 FL 03/05/2017 9:30 AM [facility] MCH 28.0 27.0 - 31.0 PG 03/05/2017 9:30 AM [facility] MCHC 32.2(L) 33.0 - 36.0 G/DL 03/05/2017 9:30 AM [facility] RDW 13.5 11.5 - 14.5 % 03/05/2017 9:30 AM [facility] PLT 220 150 - 350 x10'3/uL 03/05/2017 9:30 AM [facility] MPV 12.0(H) 7.4 - 10.4 FL 03/05/2017 9:30 AM [facility] SEG NEUTROPHILS 62.5 % 7 9:30 AM [facility] LYMPHOCYTES 24.2 % 03/05/2017 9:30 AM [facility] MONOCYTES 11.3 % 03/05/2017 9:30 AM [facility] EOSINOPHILS 0.8 % 03/05/2017 9:30 AM [facility] BASOPHILS 0.9 % 03/05/2017 9:30 AM [facility] IMMATURE GRANS % 0.3 % 03/05/20 17 9:30 AM [facility] NRBC 0.0 % 03/05/2017 9:30 AM [facility] ABS. NEUTROPHILS 4.11 1.60 - 8.30 x10'3/uL 03/05/2017 9:30 AM [facility] ABS. LYMPHOCYTES 1.59 0.80 - 4.70 x10'3/uL 03/05/2017 9:30 AM [facility] ABS. MONOCYTES 0.74 0.00 - 1.50 x10'3/uL 03/05/2017 9:30 AM [facility] ABS. EOSINOPHILS 0.05 0.00 - 0.40 x10'3/uL 03/05/2017 9:30 AM [facility] ABS. BASOPHILS 0.06 0.00 - 0.20 x10'3/uL 03/05/2017 9:30 AM [facility] ABS. IMMATURE GRANULOCYTES 0.02 0.00 - 0.03 x10'3/uL 03/05/2017 9:30 AM RETAIL SECURITY PROFESSIONAL [facility] ABS. NUCLEATED RBC'S 0.00 0.00 x10'3/uL 03/05/2017 9:30 AM RETAIL SECURITY PROFESSIONAL [facility] OTHER (type in comments) 03/05/2017 9:20 AM RETAIL SECURITY PROFESSIONAL 03/05/2017 9:29 AM RETAIL SECURITY PROFESSIONAL Comment:WHOLE BLOOD SAMPLE us Generic Conversion Md [facility] Final R esult [facility] [address] [place] [address], documented in this encounter Visit Diagnoses Diagnosis Essential (primary) hypertension Unspecified essential hypertension documented in this encounter Additional Health Concerns Infection Onset Date Last Indicated Resolved Time MRSA Comment:Negative MRSA 05/201903/11/2017 03/11/2017 10/03/2019 10:08 AM CDT documented as of this encounter Care Teams Supervisor Welding Equipment Repairer Relationship Specialty Start Date End [place] [address] PCP - General FAMILY PRACTICE 10/27/15 12/02/21 Stanis[place] [place] [phone] CARDIOVASCULAR DISEASE 10/27/15 10/24/18 [place]var[place] [address] [phone] [place] Screw Machine Repairer CARDIOVASCULAR DISEASE 08/19/16 Raul [place] [address] [place] [phone] CLINICAL CARDIAC ELECTROPHYSIOLOGY 06/16/17 [place] [address] [place] [phone] CARDIOVASCULAR DISEASE 06/16/17 07/10/19 Dev[place] [address] [phone] Die Try Out Worker Stamping INTERVENTIONAL CARDIOLOGY 03/21/18 10/24/18 documented as of this encounter
--- OUTSIDE RECORDS SUMMARY | 2024-04-23 04:30 | XMS_ITS | Encounter Summary ---
Author Organization [facility] Address [address] [place] [address]. [place], [place] [address] [place] [address] Care Team Providers Care Wire Bound Box Machine Helper Name Role Phone Vernon Mercedes MD Primary Care Provider [phone] Stanislaw Rhodes MD Unavailable Unavailab le Reason for Visit * Reason Onset Date Comments Arrhythmia 05/25/2016 afib Encounter Details Date Type Department Care Team (Late st Contact Info) Description 05/25/2016 Telephone [employer] [facility] [address] [place] [address] Raul Santana MD Arrhythmia (afib) Social History Tobacco Use Types Packs/Day Years [...] as of this encounter Progress Notes * Capri Ewing RN - 05/25/2016 12:37 PM CST Patient called had a recent afib ablation 05/19/2016. Since ablation he has had a spell of afib on Tuesday that last 2 hours and then another spell last night which he had to go to the ER. He states his HR gots as high as 160 bpm. THe ER said his Mag level was low and they gave him a bolus of Mag. They also increased his Diltalizem from once daily to twice daily. Discussed with Dr. Santana he would like to start patient on a 3 month only course of Amiodaroneat 200mg daily. Will sent Rx to his local pharmacy. Asked patient to monitor HR and b/p daily with medication changes. Also to contact our office if increasing spells of afib. He expressed understanding. ETING WRITER documented in this encounter Plan of Treatment Upcoming Encounters Date Type Department Care Team (Late st Contact Info) Description 04/25/2024 11:00 AM MARKETING WRITER Appointment [facility] [address] [place] [address] Ti Bonilla MD [address] [place] [phone] 05/23/2024 3:30 PM MARKETING WRITER Office Visit [facility] [address] [place] [address] Jyoti Escobar MD [address] [place] [phone] documented as of this encounter Visit Diagnoses Not on filedocumented in this encounter Care Teams Wire Bound Box Machine Helper Relationship Specialty Start Date End Date Vernon Mercedes MD [address] [place] [phone] PCP - General FAMILY PRACTICE 10/27/15 12/02/21 Stanislaw Rhodes MD [address] [place] [address] CARDIOVASCULAR DISEASE 10/27/15 10/24/18 documented as of this encounter
--- OUTSIDE RECORDS SUMMARY | 2024-04-23 04:30 | XMS_ITS | Encounter Summary ---
Author Organization [facility] Address [address] [place] [address]. [place] [address] [place] [address] Care Team Providers Care Field Evidence Technician Name Role Phone Vernon Mercedes MD Primary Care Provider [phone] Stanislaw Rhodes MD Unavailable Unavailab Evaristo Ying MD Unavailable Unavailabl Raul Duran MD Unavailable Unavailabl Myah Gee NP Unavailable Unavailable Reason for Visit * Reason Comments Lab (SCAN) Encounter Details Date Type Department Care Team (Late st Contact Info) Description 12/15/2016 Scan [facility] [address] [place] [address] Scanned, Documents Lab (SCAN) Social History Tobacco [...] (Late Contact Info) Description 04/25/2024 11:00 AM PRICE ACCURACY SUPERVISOR Appointment [facility] [address] [place] [address] Ti Bonilla MD [address] [place] [phone] 05/23/2024 3:30 PM PRICE ACCURACY SUPERVISOR Office Visit [facility] [address] [place] [address] Jyoti Escobar MD [address] [place] [address] documented as of this encounter Procedures Procedure Name Priority Date/Time Associated Diagnosis Comments OUTSIDE LAB (SCAN ORDER) Routine 12/15/2016 documented in this encounter Results * OUTSIDE LAB (12/15/2016) 12/15/2016 us Documents Scanned SCANNING Final Result documented in this encounter Visit Diagnoses Not on filedocumented in this encounter Additional Health Concerns Infection Onset Date Last Indicated Resolved Time MRSA Comment:Negative MRSA 05/201903/11/2017 03/11/2017 10/03/2019 10:08 AM CDT documented as of this encounter Care Teams Field Evidence Technician Relationship Specialty Start Date End Date [place] [phone] PCP - General FAMILY PRACTICE 10/27/15 12/02/21 Stanis[place] [address] [phone] CARDIOVASCULAR DISEASE 10/27/15 10/24/18 Evaristo [place] [address] [phone] [place] International Relations Teacher CARDIOVASCULAR DISEASE 08/19/16 Raul [place] [address] [phone] CLINICAL CARDIAC ELECTROPHYSIOLOGY 06/16/17 [place] [address] CARDIOVASCULAR DISEASE 06/16/17 07/10/19 documented as of this encounter
--- OUTSIDE RECORDS SUMMARY | 2024-04-23 04:30 | XMS_ITS | Encounter Summary ---
Author Organization [facility] Address [address] [place] [address]. [place], [place] [address] [place] [address] Care Team Providers Care Corncob Pipes Assembler Name Role Phone Vernon Delgado MD Primary Care Provider [phone] Stanislaw Rhodes MD Unavailable Unavailab Evaristo Ying MD Unavailable Unavailabl e Reason for Visit * Reason Comments Atrial Fibrillation Encounter Details Date Type Department Care Team (Latest Contact Info) Description 02/10/2017 10:30 AM CDT Office Visit [facility] [place] [address] Raul Santana MD Atrial Fibrillation Social History Tobacco Use Types [...] Sign Reading Time Taken Comments Blood Pressure 122/72 02/10/2017 9:58 AM CDT Pulse 55 02/10/2017 9:58 AM CDT Temperature - - Respiratory Rate 16 02/10/2017 9:58 AM CDT Oxygen Saturation - - Inhaled Oxygen Concentration - - Weight 126.6 kg (279 lb) 02/10/2017 9:58 AM CDT Height 177.8 cm (5' 10 ) 02/10/2017 9:58 AM CDT Body Mass Index 40.03 02/10/2017 9:58 AM CDT documented in this encounter Patient Instructions * Patient Instructions* Mendel Hobbs RN - 02/10/2017 10:30 AM CDT Images from the original note were not included. Atrial Fibrillation The Basics Written by the doctors and editors at [facility] What is atrial fibrillation???--??Atrial fibrillation is [...] away. In others, A-fib can come and go. If you had one or more bouts [...] in your heart. How is atrial fibrillation treated???--??Treatment can include one or more of these: [...] process is complete. This topic retrieved from [employer] on: Nov 02, 2016. Topic 17617 Version 10.0 Release: 25.3 - C25.159 ?2017??[employer], [employer].??All rights reserved. figure 1: Atrial fibrillation This drawing shows where the heart is located in the chest. In atrial fibrillation, the electrical signals that control the heartbeat are abnormal. As a result, the top two chambers of the heart (seearrows) stop pumping effectively, and blood that should move out of these chambers gets left behind. Graphic 84597 Version 3.0 figure 2: Signs of stroke The letters in the word fast help you remember the signs of stroke. If a person shows any of these signs, call an ambulance right away. In the [place] and [place], dial ??[id number]. ?? Graphic 59790 Version 3.0 Consumer Information Use and Disclaimer [...] that is right for you.The use of [employer] content is governed by the [employer] Terms of Use. ??2017 [employer]. All rights reserved. Copyright ?2017??[employer] Inc[employer]??All rights reserved. documented in this encounter Progress Notes * Raul Santana MD - 02/10/2017 10:30 AM CDT Reason for Visit: Atrial Fibrillation History of Present Illness: This very pleasant 57-year-old man presents for follow-up of his pulmonary vein isolation procedureperformed May 19, 2016. He reports he has done very well since that procedure and because of work limitations, has had some difficulty returning for visits. He has not had syncope or presyncope.He believes he had a few seconds to possibly a couple of minutes of atrial fibrillation since the pr ocedure. Otherwise, he has been free of symptomatic arrhythmias. He has continued Pradaxa without difficulty. He has had no stomach upset, bleeding or bruising related to that medication. He continues to work. He reports his chronic IV access sites healed well without any significant bruising or bleeding. He reports he has had some lower extremity edema for which he has been on furosemide. He has had improvement in his symptoms of edema with diuresis. He has continued amiodarone despite the recommendation that he continue only for 3 months after theprocedure. He would like to stop this medication now. Electrocardiogram today shows sinus rhythm at 55 bpm. Recommendations and Plan: 1. Post pulmonary vein isolation: He has been doing well with only brief symptomatic episodes of arrhythmia. The exact etiology of these episodes is not entirely clear. I discussed with him the possibility that medical suppression with amiodarone is the cause of his doing well however he would liketo stop any medications that are no longer necessary. We will plan to stop amiodarone at this time and also stop diltiazem. I am hopeful that doing so will improve his symptoms of lower extremity edema. We will continue to monitor for symptomatic recurrences, and I will plan to see him in 3 months in follow-up. Anticoagulation: We will continue dabigatran for stroke risk reduction. He is tolerating this medication well. Palpitations: I am concerned that his palpitations are related to recurrence of atrial fibrillationhowever this is not entirely obvious. I will continue to monitor him and offered him long-term monitoring should it be necessary to capture these episodes. If he has sustained episode of palpitationslasting more than an hour, I asked him to present for ECG. Medications: Current Outpatient Prescriptions: ??? atorvastatin 40 MG tablet, Take 40 mg by mouth daily., Disp: , Rfl: ??? dabigatran 150 MG Cap, Take 1 capsule (150 mg total) by mouth 2 (two) times daily., Disp: 180 capsule, Rfl: 3 ??? DUCODYL 5 MG Tab EC, , Disp: , Rfl: ??? furosemide 20 MG tablet, , Disp: , Rfl: ??? GAVILYTE-G 236 G solution, , Disp: , Rfl: ??? ibuprofen 600 MG tablet, Take 600 mg by mouth 3 (three) times daily., Disp: , Rfl: ??? insulin lispro 100 UNIT/ML injection (VIAL), Inject into the skin 3 (three) times daily before meals., Disp: , Rfl: ??? LEVEMIR 100 UNIT/ML injection, , Disp: , Rfl: ??? metFORMIN 850 MG tablet, Take 850 mg by mouth 2 (two) times daily with meals., Disp: , Rfl: ??? metoclopramide 10 MG tablet, , Disp: , Rfl: ??? 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 Smoking status: [...] new or significant memory loss. Filed Vitals: 02/10/17 0958 BP: 122/72 Pulse: 55 Resp: 16 Weight: 126.6 kg (279 lb) Height: 5' 10 (1.778 m) Physical [...] is normal. Thought content normal. Diagnoses/Impression: 1. alf current use of anticoagulant therapy 2. Paroxysmal atrial fibrillation PINNACLE Documentation Completed: Atrial Fibrillation Referring Provider: Vernon Delgado PCP: VERNON DELGADO documented in this encounter Plan of Treatment Upcoming Encounters Date Type Department Care Team (Late st Contact Info) Description 04/25/2024 11:00 AM MODEL AND MOLD MAKER PLASTER Appointment [facility] [address] [place] [address] Ti Bonilla MD [address] [place] [phone] 05/23/2024 3:30 PM MODEL AND MOLD MAKER PLASTER Office Visit [facility] [address] [place] [phone] Jyoti Escobar MD [address] [place] [address] documented as of this encounter Visit Diagnoses Diagnosis superintendent terminal current use of anticoagulant therapy Paroxysmal atrial fibrillation (CMS/HCC HHS/HCC) Atrial fibrillation documented in this encounter Care Teams Corncob Pipes Assembler Relationship Specialty Start Date End Date Vernon Delgado MD [address] [place] [address] PCP - General FAMILY PRACTICE 10/27/15 12/02/21 Stanislaw Rhodes MD [address] [place] [phone] CARDIOVASCULAR DISEASE 10/27/15 10/24/18 Evaristo Allan MD [address] [place] [phone] Underwood Manugrapher CARDIOVASCULAR DISEASE 08/19/16 documented as of this encounter
--- OUTSIDE RECORDS SUMMARY | 2024-04-23 04:31 | XMS_ITS | Encounter Summary ---
Author Organization [facility] Address [address] [place] [address]. [place] [address] [place] [address] Care Team Providers Care Senior Administrative Assistant Name Role Phone Vernon Mercedes MD Primary Care Provider [phone] Stanislaw Rhodes MD Unavailable Unavailab Evaristo Ying MD Unavailable UnavailRaul Suresh MD Unavailable UnavailMyah Elena NP Unavailable Unavailable Deven Cleary MD Unavailable Unavailable Encounter Details Date Type Department Care Team (Late Contact Info) Description 04/16/2016 Abstract [facility] [address] [place] [address] Mavis Schaeffer MD [address] [place] [address] Social History Tobacco Use Types Packs/Day Years [...] 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 Not on file Not on file Not on file documented as of this encounter Plan of Treatment Upcoming Encounters Date Type Department Care Team (Late Contact Info) Description 04/25/2024 11:00 AM BLACK ASH WORKER Appointment [facility] [address] [place] [address] Ti Bonilla MD [address] [place] [phone] 05/23/2024 3:30 PM BLACK ASH WORKER [facility] [address] [place] [address] Jyoti Escobar MD [address] [place] [address] documented as of this encounter Visit Diagnoses Diagnosis Atrial fibrillation (CMS/HCC HHS/HCC) Atrial fibrillation documented in this encounter Additional Health Concerns Infection Onset Date Last Indicated Resolved Time MRSA Comment:Negative MRSA 05/201903/11/2017 03/11/2017 10/03/2019 10:08 AM CDT documented as of this encounter Care Teams Senior Administrative Assistant Relationship Specialty Start Date End Date Vernon Mercedes MD [address] [place] [address] PCP - General FAMILY PRACTICE 10/27/15 12/02/21 [place] [address] CARDIOVASCULAR DISEASE 10/27/15 10/24/18 [place] [address] Gardner Monotype Machinist CARDIOVASCULAR DISEASE 08/19/16 [place] [address] CLINICAL CARDIAC ELECTROPHYSIOLOGY 06/16/17 [place] [address] CARDIOVASCULAR DISEASE 06/16/17 07/10/19 [place] [address] Product Development Intern INTERVENTIONAL CARDIOLOGY 03/21/18 10/24/18 documented as of this encounter
--- OUTSIDE RECORDS SUMMARY | 2024-04-23 04:31 | XMS_ITS | Encounter Summary ---
Author Organization [facility] Address [address] [place] [address]. [place], [place] [address] [place] [address] Care Team Providers Care Stick Feeder Name Role Phone Vernon Mercedes MD Primary Care Provider [phone] Stanislaw Rhodes MD Unavailable Unavailab Evaristo Ying MD Unavailable UnavailRaul Suresh MD Unavailable UnavailMyah Elena NP Unavailable Unavailable Deven Cleary MD Unavailable Unavailable Encounter Details Date Type Department Care Team (Late st Contact Info) Description 05/05/[address] [facility] [address] [place] [address] Vernon Mercedes MD [address] [place] [phone] Social History Tobacco Use Types Packs/Day Years Used Date Smoking Tobacco: Never Assessed Sex and Gender Information Value Date Recorded Sex Assigned at Not on file Legal Sex Male 10:30 AM CDT Gender Identity Not on file Sexual Orientation Not on file documented as of this encounter Plan of Treatment Upcoming Encounters Date Type Department Care Team (Late st Contact Info) Description 04/25/2024 11:00 AM BALANCE TRUING INSPECTOR Appointment [facility] [address] [place] [address] Ti Bonilla MD [address] [place] [phone] 05/23/2024 3:30 PM BALANCE TRUING INSPECTOR [facility] [address] [place] [address] Jyoti Escobar MD [address] [place] [address] documented as of this encounter Visit Diagnoses Diagnosis Obstructive sleep apnea Obstructive sleep apnea (adult) (pediatric) documented in this encounter Additional Health Concerns Infection Onset Date Last Indicated Resolved Time MRSA Comment:Negative MRSA 05/201903/11/2017 03/11/2017 10/03/2019 10:08 AM CDT documented as of this encounter Care Teams Stick Feeder Relationship Specialty Start Date End Date Vernon Mercedes MD [address] [place] [address] PCP - General FAMILY PRACTICE 10/27/15 12/02/21 [place] [address] CARDIOVASCULAR DISEASE 10/27/15 10/24/18 [place] [address] [place] Contact Lens Molder CARDIOVASCULAR DISEASE 08/19/16 [place] [address] CLINICAL CARDIAC ELECTROPHYSIOLOGY 06/16/17 Myah Handley PAPER [place] [address] CARDIOVASCULAR DISEASE 06/16/17 07/10/19 [place] [address] Library Circulation Technician INTERVENTIONAL CARDIOLOGY 03/21/18 10/24/18 documented as of this encounter
--- OUTSIDE RECORDS SUMMARY | 2024-04-23 04:31 | XMS_ITS | Encounter Summary ---
Author Organization [facility] Address [address] [place] [address]. [place], [place] [address] [place], [place] [phone] Care Team Providers Care Licensed Chemical Spray Technician Name Role Phone Vernon Mercedes MD Primary Care Provider [phone] Stanislaw Rhodes MD Unavailable Unavailab Elza Ying MD Unavailable UnavailRaul Suresh MD Unavailable Unavailabl Myah Gee NP Unavailable Unavailable Encounter Details Date Type Department Care Team (Latest Contact Info) Description 12/10/2014 Abstract [facility] , Stephani Aiken MD Social History Tobacco Use Types Packs/Day Years Used Date Smoking Tobacco: Never Assessed Sex and Gender Information Value Date Recorded Sex Assigned at Not on file Legal Sex Male 10:30 AM CDT Gender Identity Not on file Sexual Orientation Not on file documented as of this encounter Discharge Summaries * Danny Steiner MD - 12/10/2014 7:54 AM CDT [address] [address] Patient: ELZA MCKE[facility] Rec#: [id number] Birthdate: 1960 Admit/Svce Date: 12/06/2014 Disch Date: 12/10/2014 Attending Md: DANNY STEINER MD (TRACY) DISCHARGE SUMMARY PATIENT: Elza Mckeon : 1960 MR #: [id number] Chart Document Diagnosis Left knee end-stage osteoarthritis. Procedure Left total knee arthroplasty. Comorbidity Insulin-dependent diabetes. Hospital Course Elza Mckeon is a 54-year-old male who underwent elective left knee replacement and made reasonable progress to the point of independence where he could be discharged home. He has an examination that demonstrates no erythema or drainage associated with his incision with mild swelling. He is neurovascularly intact. He was discharged home with his regular home medications as well as MS Contin and Wells for pain relief. He is going to take a full-size aspirin twice a day for DVT prophylaxis and will arrange outpatient physical therapy. CP/ams A A #[id number] cc: MD Danny Woody MD CP/ams E-Signed By A Danny Steiner MD 12/17/2014 01:55 P A #[id number] cc: MD Danny Woody MD documented in this encounter Plan of Treatment Upcoming Encounters Date Type Department Care Team (Late st Contact Info) Description 04/25/2024 11:00 AM CUPOLA REPAIRER Appointment [facility] [address] [place] [address] Ti Bonilla MD [address] [place] [phone] 05/23/2024 3:30 PM CUPOLA REPAIRER Office Visit [facility] [address] [place] [address] Jyoti Escobar MD [address] [place] [phone] documented as of this encounter Visit Diagnoses Not on filedocumented in this encounter Additional Health Concerns Infection Onset Date Last Indicated Resolved Time MRSA Comment:Negative MRSA 05/201903/11/2017 03/11/2017 10/03/2019 10:08 AM CDT documented as of this encounter Care Teams Licensed Chemical Spray Technician Relationship Specialty Start Date End [place] [address] PCP - General FAMILY PRACTICE 10/27/15 12/02/21 [place] [address] [place] [phone] CARDIOVASCULAR DISEASE 10/27/15 10/24/18 El[place] [phone] Coleman Audio Visual Arts Director CARDIOVASCULAR DISEASE 08/19/16 [place] [address] CLINICAL CARDIAC ELECTROPHYSIOLOGY 06/16/17 [place] [address] CARDIOVASCULAR DISEASE 06/16/17 07/10/19 documented as of this encounter
--- OUTSIDE RECORDS SUMMARY | 2024-04-23 04:31 | XMS_ITS | Encounter Summary ---
Author Organization [facility] Address [address] [place] [address]. 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 History of Present Illness HPI: Patient returns to clinic today in follow up for his BILATERAL knees. He reports both knees have started hurting. He denies any injury. Mostly it's with stairs. He's very active. He had previousTKA. Review of Systems See HPI for pertinent positives. Active Problems 1. Abdominal pain (789.00) (R10.9) 2. Aftercare following knee joint replacement surgery (V54.81,V43.65) (Z47.1,Z96.659) 3. Aftercare following surgery (V58.89) (Z48.89) 4. Arthritis of knee (716.96) (M19.90) 5. Derangement of medial meniscus, left (717.3) [...] Amoxicillin-Pot Clavulanate 875-125 MG Oral Tablet; Therapy: 11Yui6712 to Recorded 2. Atenolol TABS; Therapy: (Recorded:93Nnd9706) to Recorded 3. Atorvastatin Calcium 40 MG Oral Tablet; Therapy: 26Jun2014 to Recorded 4. HumaLOG 100 UNIT/ML Subcutaneous Solution; Therapy: 74Gxp7559 to Recorded 5. Hydrocodone-Acetaminophen 5-325 MG Oral Tablet; Therapy: 19Jun2014 to Recorded 6. Hydrocodone-Acetaminophen 7.5-325 MG Oral Tablet (Struthers); 1 q 6 hrs prn pain; Therapy: 22Uzj4456 to (Last Rx:21Jan2015) Ordered 7. Hydrocodone-Acetaminophen 7.5-325 MG Oral Tablet; TAKE 1 TABLET EVERY 6 HOURS NEEDED; Therapy: 36Mbf6921 to (Evaluate:29Jan2015); Last Rx:16Znt4541 Ordered 8. Levemir 100 UNIT/ML Subcutaneous Solution; Therapy: (Recorded:00Zat4173) to Recorded 9. MetFORMIN HCl TABS; Therapy: (Recorded:59Nam9493) to Recorded 10. MethylPREDNISolone 4 MG Oral Tablet Therapy Pack (Medrol); as directed; Therapy: 10Ufc2741 to (Last Rx:68Kxi4842) Requested for: 03Ozb4864 Ordered 11. Naprosyn TABS (Naproxen); Therapy: (Recorded:15Pav4899) to Recorded 12. Oxybutynin Chloride 5 MG Oral Tablet; Therapy: 21Jun2014 to Recorded 13. RaNITidine HCl TABS; Therapy: (Recorded:21Rql2161) to Recorded 14. Sure Comfort Insulin Syringe 31G X 5/16 0.3 ML Miscellaneous; Therapy: (Recorded:09Mar2016) to Recorded 15. Sure Comfort Insulin Syringe 31G X 5/16 0.3 ML Miscellaneous; Therapy: 15Oct2013 to Recorded 16. Sure Comfort Insulin Syringe 31G X 5/16 1 ML Miscellaneous; Therapy: 02Jul2014 to Recorded 17. Tamsulosin HCl - 0.4 MG Oral Capsule; Therapy: (Recorded:47Mbj9139) to Recorded 18. TraMADol HCl TABS; Therapy: (Recorded:82Gof4762) to Recorded 19. TRUEplus Lancets 28G Miscellaneous; Therapy: 13Gjw0340 to Recorded Allergies 1. Tetracyclines Physical Exam Constitutional: alert and in no acute distress. Neurological:. the patient was oriented to person, place, and time. mood and affect were appropriate. Eyes: pupils were equal in size, round, reactive to light, with normal accommodation. ENT: hearing was normal. Pulmonary: no respiratory distress. Skin: no injuries or skin lesions on the left lower extremity. Left Knee: EXAM today reveals tender over pes BILATERALLY, medial tenderness, no swelling, range ofmotion 0 - 115, stable, NVI, no redness Results/Data XRAYS Today reveals BILATERAL TKA well aligned with no looseing Findings: Procedure Procedure: Injection of bilateral pes anserine bursa. Indication: pes bursitis. Were discussed with the patient. Verbal consent was obtained prior to the procedure. Alcohol and Betadine was used to prep the area. ethyl chloride spray was used as a topical anesthetic. Fluid was aspirated with a 25-gauge 1.5 inch needle. Was used to inject 1 mL of 1% Lidocaine and1 mL 80mg/mL methylprednisolone. A bandage was applied. Post-Procedure: the patient tolerated the procedure well. Complications: None. Assessment 1. Pes anserine bursitis (726.61) (M70.50) Plan Pes anserine bursitis 1. MethylPREDNISolone 4 MG Oral Tablet Therapy Pack (Medrol); as directed Formulary Override Reason: No Formulary Equivalent Exists 2. Continue with our present treatment plan.; Status:Complete; Done: 09Mar2016 3. We have injected a steroid medicine into your knee to help reduce swelling.; Status:Complete; Done: 09Mar2016 Status post orthopedic surgery, follow-up exam 4. XR Knee 1 to 2 View Lt; Status:Active; Requested for:08Mar2016; I have also provided him a dose pack. He'll return in 3 months. Signatures Electronically signed by : Danny Steiner M.D.; Mar 09 2016 12:03PM HEAD PIECE ASSEMBLER (Author) Electronically signed by : Danny Steiner M.D.; Oct 27 2016 4:07PM HEAD PIECE ASSEMBLER (Author) documented in this encounter Plan of Treatment Upcoming Encounters Date Type Department Care Team (Late st Contact Info) Description 04/25/2024 11:00 AM HEAD PIECE ASSEMBLER Appointment [facility] [address] [place] [address] [place] [address] Ti Bonilla MD [address] [place] [phone] 05/23/2024 3:30 PM HEAD PIECE ASSEMBLER Office Visit [facility] [address] [place] [address] [place] [address] Jyoti Escobar MD [address] [place] [phone] documented as of this encounter Procedures Procedure Name Priority Date/Time Associated Diagnosis Comments SURG XR KNEE LT 1-2V Routine 03/09/2016 1:06 PM HEAD PIECE ASSEMBLER XR KNEE STAND AP VANITA ONLY Routine 03/09/2016 1:06 PM HEAD PIECE ASSEMBLER documented in this encounter Results * SURG XR KNEE LT 1-2V (03/09/2016 1:06 PM HEAD PIECE ASSEMBLER) Anatomical Region Laterality Modality Knee IMAGES ONLY 03/09/2016 1:06 PM HEAD PIECE ASSEMBLER 03/09/2016 1:06 PM HEAD PIECE ASSEMBLER Narrative 03/09/2016 1:11 PM HEAD PIECE ASSEMBLER [facility] ?? [address] [place] [address] ?? [place] ? Patient Name: ELZA MCKEON Date of : 1960 ?? Med Rec #: [id number] ??Age/Sex: 56/M ?Pt. Location: ORTHO ?? Attending Provider: DANNY STEINER MD (TRACY) ?? Ordering Provider: DANNY STEINER MD (TRACY) ? Study Date Order Number Procedure ?? 03/09/16 [id number] XR Knee Standing Bi ? Signed ? Examination: Bilateral knees. ? Exam time: 1049 hours. ? Clinical history: Surgical aftercare. ? Comparison: 03/04/2015. ? Technique: Bilateral weightbearing PA and sunrise and weightbearing lateral views on the left. ? Findings: No fracture, dislocation or other acute bony abnormality is identified. Total joint prosthesis on the left remains in place with the components appearing in satisfactory alignment and position. Right knee arthroplasty appears stable in single projection. No other significant bone or joint abnormality is noted. The soft tissues are unremarkable. ? IMPRESSION: ?? Stable postoperative changes. No acute findings. ? Electronically Signed By: ARSLAN TIAN MD 03/09/16 1308 ? Dictated On: 03/09/16 1306 ?? Interpreted By: ARSLAN TIAN MD ?? Transcribed On: 03/09/16 1306 - INFCE ?? Procedure Note Stephani Luz MD - 02/10/[address] Patient Name: ELZA MCKEON Date of : 1960 Med Rec #: [id number] Age/Sex: 56/M Pt. Location: ORTHO Attending Provider: DANNY STEINER MD (TRACY) Ordering Provider: DANNY STEINER MD (TRACY) Study Date Order Number Procedure 03/09/16 [id number] XR Knee Standing Bi Signed Examination: Bilateral knees. Exam time: 1049 hours. Clinical history: Surgical aftercare. Comparison: 03/04/2015. Technique: Bilateral weightbearing PA and sunrise and weightbearinglateral views on the left. Findings: No fracture, dislocation or other acute bony abnormality isidentified. Total joint prosthesis on the left remains in place with the components appearing insatisfactory alignment and position. Right knee arthroplasty appears stable in single projection. Noother significant bone or joint abnormality is noted. The soft tissues are unremarkable. IMPRESSION: Stable postoperative changes. No acute findings. Electronically Signed By: ARSLAN TIAN MD 03/09/16 1308 Dictated On: 03/09/16 1306 Interpreted By: ARSLAN TIAN MD Transcribed On: 03/09/16 1306 - INFCE us Danny Steiner MD IMAGES ONLY Final Result * XR KNEE STAND AP VANITA ONLY (03/09/2016 1:06 PM HEAD PIECE ASSEMBLER) Anatomical Region Laterality Modality Knee Radiographic Shannan ging 03/09/2016 1:06 PM HEAD PIECE ASSEMBLER 03/09/2016 1:06 PM HEAD PIECE ASSEMBLER Narrative 03/09/2016 1:11 PM HEAD PIECE ASSEMBLER [facility] ?? [address] ?? [place] ? Patient Name: ELZA MCKEON Date of : 1960 ?? Med Rec #: [id number] ??Age/Sex: 56/M ?Pt. Location: ORTHO ?? Attending Provider: DANNY STEINER MD (TRACY) ?? Ordering Provider: DANNY STEINER MD (TRACY) ? Study Date Order Number Procedure ?? 03/09/16 [id number] XR Knee Standing Bi ? Signed ? Examination: Bilateral knees. ? Exam time: 1049 hours. ? Clinical history: Surgical aftercare. ? Comparison: 03/04/2015. ? Technique: Bilateral weightbearing PA and sunrise and weightbearing lateral views on the left. ? Findings: No fracture, dislocation or other acute bony abnormality is identified. Total joint prosthesis on the left remains in place with the components appearing in satisfactory alignment and position. Right knee arthroplasty appears stable in single projection. No other significant bone or joint abnormality is noted. The soft tissues are unremarkable. ? IMPRESSION: ?? Stable postoperative changes. No acute findings. ? Electronically Signed By: ARSLAN TIAN MD 03/09/16 1308 ? Dictated On: 03/09/16 1306 ?? Interpreted By: ARSLAN TIAN MD ?? Transcribed On: 03/09/16 1306 - INFCE ?? Procedure Note Stephani Luz MD - 02/10/[address] Patient Name: ELZA MCKEON Date of : 1960 Med Rec #: [id number] Age/Sex: 56/M Pt. Location: ORTHO Attending Provider: DANNY STEINER MD (TRACY) Ordering Provider: DANNY STEINER MD (TRACY) Study Date Order Number Procedure 03/09/16 [id number] XR Knee Standing Bi Signed Examination: Bilateral knees. Exam time: 1049 hours. Clinical history: Surgical aftercare. Comparison: 03/04/2015. Technique: Bilateral weightbearing PA and sunrise and weightbearinglateral views on the left. Findings: No fracture, dislocation or other acute bony abnormality isidentified. Total joint prosthesis on the left remains in place with the components appearing insatisfactory alignment and position. Right knee arthroplasty appears stable in single projection. Noother significant bone or joint abnormality is noted. The soft tissues are unremarkable. IMPRESSION: Stable postoperative changes. No acute findings. Electronically Signed By: ARSLAN TIAN MD 03/09/16 1308 Dictated On: 03/09/16 1306 Interpreted By: ARSLAN TIAN MD Transcribed On: 03/09/16 1306 - INFCE us Danny Steiner MD GENERAL IMAGING Final Result documented in this encounter Visit Diagnoses Not on filedocumented in this encounter Additional Health Concerns Infection Onset Date Last Indicated Resolved Time MRSA Comment:Negative MRSA 05/201903/11/2017 03/11/2017 10/03/2019 10:08 AM CDT documented as of this encounter Care Teams Manager Of Corporate Communications Relationship Specialty Start Date End Date Vernon Mercedes [place] [address] PCP - General FAMILY PRACTICE 10/27/15 12/02/21 Stanislaw Rhodes MD [address] [place] [phone] CARDIOVASCULAR DISEASE 10/27/15 10/24/18 Elza Allan MD [address] [place] [phone] [employer] Flat [employer] Machine Operator CARDIOVASCULAR DISEASE 08/19/16 Raul Santana MD [address] [place] [phone] CLINICAL CARDIAC ELECTROPHYSIOLOGY 06/16/17 Myah Handley INTERACTIVE MEDIA PROJECT MANAGER [address] [place] [place] [phone] CARDIOVASCULAR DISEASE 06/16/17 07/10/19 documented as of this encounter
--- OUTSIDE RECORDS SUMMARY | 2024-04-23 04:31 | XMS_ITS | Encounter Summary ---
Author Organization [facility] Address [address] [place] [address]. [place] [phone] Care Team Providers Care Button Sewing Machine Operator Name Role Phone Vernon Mercedes MD Primary Care Provider [phone] Stanislaw Rhodes MD Unavailable Unavailab Elza Ying MD Unavailable UnavailRaul Suresh MD Unavailable Unavailabl Myah Gee NP Unavailable Unavailable Encounter Details Date Type Department Care Team (Late st Contact Info) Description 11/26/2014 Abstract [facility] [address] [place] [address] Danny Steiner MD [address] [place], [place] [phone] Social History Tobacco Use Types Packs/Day Years Used Date Smoking Tobacco: Never Assessed Sex and Gender Information Value Date Recorded Sex Assigned at Not on file Legal Sex Male 10:30 AM CDT Gender Identity Not on file Sexual Orientation Not on file documented as of this encounter Progress Notes * Danny Steiner MD - 11/26/2014 8:30 AM CDT Referred By / Reason Patient was referred by Primary Care Physician LDV by PCP: Name: Dr. Mercedes Reason: Chief Complaint Chief Complaint: The patient presents to the office today with LEFT knee pain. History of Present Illness HPI: Patient returns to clinic today with continued complaints of LEFT knee pain. He had arthroscopy for medial meniscus debridement on 08-07-2014. He continues to have start up pain. He also reports pain at night that keeps him awake. He had injection 09-04-2014 and he states this provided no relief. He is unable to to walk long distances due to his knee pain. He also walks with a limp. He has tried physical therapy with no significant relief. HE also used NSAIDS with no relief. He denies numbness or tingling. Review of Systems See HPI for pertinent positives. Active Problems 1. Abdominal pain (789.00) (R10.9) 2. Aftercare following surgery (V58.89) (Z48.89) 3. Arthritis of knee (716.96) (M12.9) 4. Derangement of medial meniscus, left (717.3) (M23.301,M23.304,M23.307) 5. Diabetes (250.00) (E11.9) 6. Heartburn (787.1) (R12) 7. Hypertension (401.9) (I10) 8. Knee pain, right (719.46) (M25.561) 9. Left knee pain (719.46) (M25.562) 10. 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) 11. Postoperative examination (V67.00) (Z09) 12. Recurrent ventral incisional hernia (553.21) (K43.2) Past Medical History 1. History of diabetes mellitus (V12.29) (Z86.39) 2. Hypertension (401.9) (I10) Surgical History 1. History of Hernia Repair 2. Denied: History Of Prior Surgery 3. History of Knee Replacement Family History Mother 1. Family history of hypertension (V17.49) (Z82.49) Family History 2. Family history of essential hypertension (V17.49) (Z82.49) Social History ?? Never a smoker Current Meds 1. Amoxicillin-Pot Clavulanate 875-125 MG Oral Tablet; Therapy: 97Gvq0491 to Recorded 2. Atenolol TABS; Therapy: (Recorded:68Dbw5366) to Recorded 3. Atorvastatin Calcium 40 MG Oral Tablet; Therapy: 26Jun2014 to Recorded 4. HumaLOG 100 UNIT/ML Subcutaneous Solution; Therapy: 11Jtw6904 to Recorded 5. Hydrocodone-Acetaminophen 5-325 MG Oral Tablet; Therapy: 19Jun2014 to Recorded 6. Hydrocodone-Acetaminophen 7.5-325 MG Oral Tablet; Therapy: 75Vwl3223 to Recorded 7. Levemir 100 UNIT/ML Subcutaneous Solution; Therapy: (Recorded:26Hsk0959) to Recorded 8. MetFORMIN HCl TABS; Therapy: (Recorded:94Sgz6134) to Recorded 9. Naprosyn TABS; Therapy: (Recorded:55Hpx2606) to Recorded 10. Oxybutynin Chloride 5 MG Oral Tablet; Therapy: 21Jun2014 to Recorded 11. Ranitidine HCl TABS; Therapy: (Recorded:25Vra9119) to Recorded 12. Sure Comfort Insulin Syringe 31G X 5/16 0.3 ML Miscellaneous; Therapy: 15Oct2013 to Recorded 13. Sure Comfort Insulin Syringe 31G X 5/16 1 ML Miscellaneous; Therapy: 02Jul2014 to Recorded 14. Tamsulosin HCl - 0.4 MG Oral Capsule; Therapy: (Recorded:87Mdc9428) to Recorded 15. TraMADol HCl TABS; Therapy: (Recorded:62Zan8511) to Recorded 16. TRUEplus Lancets 28G Miscellaneous; Therapy: 43Kkl6782 to Recorded Allergies 1. Tetracyclines Physical Exam Constitutional: alert and in no acute distress. Neurological:. The patient was oriented to person, place, and time. Mood and affect were appropriate. Eyes: pupils were equal in size, round, reactive to light, with normal accommodation. ENT: hearing was normal. Neck: the appearance of the neck was normal. Cardiovascular: heart rate and rhythm were normal. Pulmonary: no respiratory distress. Abdomen: non-tender. Skin: no injuries or skin lesions on the left lower extremity. Left Knee: EXAM today reveals 0 - 130 degrees, limp, medial tenderness, effusion Results/Data PREVIOUS XRAYS were reviewed and reveals significant degenerative changes. I have ordered new XRAYStoday which he will get prior to surgery. Our XRAY machine was down today and were unable to get them while he was here in the office. I'll review them prior to surgery. Findings: Assessment 1. Arthritis of knee (716.96) (M12.9) Plan Arthritis of knee 1. MRSA PCR SCREEN; Status:Active; Requested for:26Nov2014; 2. XR Knee 1 to 2 View Lt; Status:Active; Requested for:25Nov2014; 3. XR Knee Standing Bi; Status:Active; Requested for:25Nov2014; Arthritis of knee, Hypertension 4. Basic Metabolic Prof; Status:Active; Requested for:26Nov2014; 5. CBC with Differential; Status:Active; Requested for:26Nov2014; Hypertension 6. EKG; Status:Active; Requested for:26Nov2014; The planned procedure/s, the expected benefits,the associated risks,possible complications, and alternatives to the procedure/s have been discussed in detail with the patient or family. They state that they understand, have no further questions and agree to proceed with the procedure/s as outlined. Procedures/Surgery: 12/09/2014 LEFT total knee arthroplasty In light of his failed conservative treatment, I have recommended proceeding with LEFT total knee arthroplasty. 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 He'll return 2 weeks after surgery for post operative evaluation. Signatures Electronically signed by : Kaylyn Grimes, ; Nov 26 2014 9:04AM MANAGER BALANCE (Author) Electronically signed by : Danny Steiner M.D.; Nov 26 2014 9:05AM MANAGER BALANCE (Author) Electronically signed by : Danny Steiner M.D.; Nov 26 2014 9:09AM MANAGER BALANCE (Author) Electronically signed by : Danny Steiner M.D.; Nov 26 2014 9:10AM MANAGER BALANCE (Author) Electronically signed by : Danny Steiner M.D.; Nov 26 2014 9:12AM MANAGER BALANCE (Author) documented in this encounter Plan of Treatment Upcoming Encounters Date Type Department Care Team (Late st Contact Info) Description 04/25/2024 11:00 AM MANAGER BALANCE Appointment [facility] [address] [place] [address] Ti Bonilla MD [address] [place] [phone] 05/23/2024 3:30 PM MANAGER BALANCE Office Visit [facility] [address] [place] [phone] Jyoti Escobar MD [address] [place] [address] documented as of this encounter Procedures Procedure Name Priority Date/Time Associated Diagnosis Comments XR KNEE STAND AP VANITA ONLY Routine 11/26/2014 4:53 PM CDT SURG XR KNEE LT 1-2V Routine 11/26/2014 4:51 PM CDT BASIC METABOLIC PANEL Routine 11/26/2014 3:51 PM CDT CBC W/DIFF AUTOMATED Routine 11/26/2014 3:51 PM CDT MRSA SCREENING Routine 11/26/2014 3:45 PM CDT documented in this encounter Results * XR KNEE STAND AP VANITA ONLY (11/26/2014 4:53 PM CDT) Anatomical Region Laterality Modality Knee Radiographic Shannan ging 11/26/2014 4:53 PM CDT 11/26/2014 4:53 PM CDT Narrative 11/26/2014 4:56 PM CDT [facility] ?? [address] [place] [address] ?? [place], [place] ? Patient Name: ELZA MCKEON Date of : 1960 ?? Med Rec #: [id number] ??Age/Sex: 54/M ?Pt. Location: ORTHO ?? Attending Provider: ADNNY STEINER MD (TRACY) ?? Ordering Provider: DANNY STEINER MD (TRACY) ? Study Date Order Number Procedure ?? 11/26/[id number] XR Knee Standing Bi ? Signed ? 11/26/2014, 1605 hours. ? History: Left knee pain. Arthritis. 716.96 ? Exam: Standing AP radiograph of both knees with correlation to study 07/17/2014. ? Findings: Minimal narrowing of the medial compartment left knee with tiny marginal spurring ?? medially and tiny spurring from the tibial spines suggesting very early arthritic change. No ?? fracture or acute bony abnormality. Prior right knee arthroplasty without evidence of ?? loosening nor infection. ? Impression: ?? Minimal early arthritic change left knee. Prior right knee arthroplasty. ? Electronically Signed By: YAA GARCIA MD 11/26/141654 ? Dictated On: 11/26/141652 ?? Interpreted By: YAA GARCIA MD ?? Transcribed On: 11/26/141652 - INFCE ?? Procedure Note Danny Steiner MD - 02/09/[address] Patient Name: ELZA MCKEON Date of : 1960 Med Rec #: [id number] Age/Sex: 54/M Pt. Location: ORTHO Attending Provider: DANNY STEINER MD (TRACY) Ordering Provider: DANNY STEINER MD (TRACY) Study Date Order Number Procedure 11/26/14 [id number] XR Knee Standing Bi Signed 11/26/2014, 1605 hours. History: Left knee pain. Arthritis. 716.96 Exam: Standing AP radiograph of both knees with correlation to study07/17/2014. Findings: Minimal narrowing of the medial compartment left knee with tinymarginal spurring medially and tiny spurring from the tibial spines suggesting very earlyarthritic change. No fracture or acute bony abnormality. Prior right knee arthroplasty withoutevidence of loosening nor infection. Impression: Minimal early arthritic change left knee. Prior right knee arthroplasty. Electronically Signed By: YAA GARCIA MD 11/26/141654 Dictated On: 11/26/141652 Interpreted By: YAA GARCIA MD Transcribed On: 11/26/141652 - INF[facility] us Danny Steiner MD GENERAL IMAGING Final Result * SURG XR KNEE LT 1-2V (11/26/2014 4:51 PM CDT) Anatomical Region Laterality Modality Knee IMAGES ONLY 11/26/2014 4:51 PM CDT 11/26/2014 4:51 PM CDT Narrative 11/26/2014 4:55 PM CDT [facility] ?? Critical access hospital [facility] ?? [place], [place] ? Patient Name: ELZA MCKEON Date of : 1960 ?? Med Rec #: [id number] ??Age/Sex: 54/M ?Pt. Location: ORTHO ?? Attending Provider: DANNY STEINER MD (TRACY) ?? Ordering Provider: DANNY STEINER MD (TRACY) ? Study Date Order Number Procedure ?? 11/26/14 [id number] XR Knee 1 to 2 Views Lt ? Signed ? 11/26/2014, 1609 hours. ? History: Left knee pain. Arthritis. 716.96 ? Exam: 2 lateral and one patellar sunrise view of the left knee with correlation to standing AP ?? radiograph same date. ? Findings: No fracture or acute bony abnormality. No gross bone destruction. Minimal arthritic ?? change with tiny dorsal patellar spurring. Ossification in the quadriceps and patellar tendons ?? attachment to the patella. Slight soft tissue swelling anterior to the patellar tendon. Joint ?? effusion is present. No calcified intra-articular bodies. ? Impression: ?? Early arthritic change. Joint effusion. ? Electronically Signed By: YAA GARCIA MD 11/26/141653 ? Dictated On: 11/26/141650 ?? Interpreted By: YAA GARCIA MD ?? Transcribed On: 11/26/141650 - INFCE ?? Procedure Note Stephani Luz MD - 02/09/[address] Patient Name: ELZA MCKEON Date of : 1960 Med Rec #: [id number] Age/Sex: 54/M Pt. Location: ORTHO Attending Provider: DANNY STEINER MD (TRACY) Ordering Provider: DANNY STEINER MD (TRACY) Study Date Order Number Procedure 11/26/14 [id number] XR Knee 1 to 2 Views Lt Signed 11/26/2014, 1609 hours. History: Left knee pain. Arthritis. 716.96 Exam: 2 lateral and one patellar sunrise view of the left knee withcorrelation to standing AP radiograph same date. Findings: No fracture or acute bony abnormality. No gross bonedestruction. Minimal arthritic change with tiny dorsal patellar spurring. Ossification in the quadricepsand patellar tendons attachment to the patella. Slight soft tissue swelling anterior to thepatellar tendon. Joint effusion is present. No calcified intra-articular bodies. Impression: Early arthritic change. Joint effusion. Electronically Signed By: YAA GARCIA MD 11/26/141653 Dictated On: 11/26/141650 Interpreted By: YAA GARCIA MD Transcribed On: 11/26/141650 - [facility] Danny Steiner MD IMAGES ONLY Final Result * (ABNORMAL) CBC W/DIFF AUTOMATED (11/26/2014 3:51 PM CDT) WBC 5.8 4.5 - 10.8 x10'3/uL [facility] TO EP[facility] CONVERSION RBC 4.69 4.50 - 6.10 x10'6/uL [facility] TO [facility] CONVERSION HGB 12.6(L) 13.0 - 18.0 G/DL [facility] TO [facility] CONVERSION HCT 40.0 37.0 - 52.0 % [facility] TO [facility] CONVERSION MCV 85.3 78.0 - 100.0 FL [facility] TO EPIC CONVERSION MCH 26.9(L) 27.0 - 31.0 PG [facility] TO [facility]IC CONVERSION MCHC 31.5(L) 33.0 - 36.0 G/DL [facility] TO EPIC CONVERSION RDW 14.0 11.5 - 14.5 % [facility] TO [facility] CONVERSION PLT 197 150 - 350 x10'3/uL [facility] TO [facility] CONVERSION MPV 12.4(H) 7.4 - 10.4 FL [facility] TO [facility] CONVERSION SEG NEUTROPHILS 52.2 50.0 - 70.0 % [facility] TO [facility] CONVERSION ABS. NEUTROPHILS 3.04 1.60 - 8.30 x10'3/uL [facility] TO [facility] CONVERSION LYMPHOCYTES 35.2 18.0 - 42.0 % [facility] TO [facility] CONVERSION ABS. LYMPHOCYTES 2.05 0.80 - 4.70 x10'3/uL [facility] TO EPIC CONVERSION MONOCYTES 9.8 2.0 - 11.0 % [facility] TO [facility]IC CONVERSION ABS. MONOCYTES 0.57 0.00 - 1.50 x10'3/uL [facility] TO EPIC CONVERSION EOSINOPHILS 1.5 1.0 - 3.0 % [facility] TO EPIC CONVERSION ABS. EOSINOPHILS 0.09 0.00 - 0.40 x10'3/uL [facility] TO EPIC CONVERSION BASOPHILS 1.0 0.0 - 1.0 % [facility] TO [facility] CONVERSION IMMATURE GRANS % 0.3(H) 0.0 % [facility] TO EPIC CONVERSION ABS. BASOPHILS 0.06 0.00 - 0.20 x10'3/uL [facility] TO EPIC CONVERSION ABS. IMMATURE GRANULOCYTES 0.02 0.00 - 0.03 x10'3/uL [facility] TO EPIC CONVERSION ABS. NUCLEATED RBC'S 0.00 0.00 x10'3/uL [facility] TO EPIC CONVERSION DIFFERENTIAL COMMENT AUTOMATED RBC MORPHOLOGY AND PLATELET EVALUATION NORMAL [facility] TO [facility] CONVERSION NRBC 0.0 0.0 % [facility] T O EPIC CONVERSION 11/26/2014 3:51 PM CDT 11/26/2014 3:51 PM CDT Narrative [facility] CONVERSION - 11/26/2014 4:05 PM CDT Result Communication: No patient communication needed at this time us Danny Steiner MD LABORATORY Final Result [facility] TO [facility] CONVERSION * (ABNORMAL) BASIC METABOLIC PANEL (11/26/2014 3:51 PM CDT) [facility] GLUCOSE 190(H) 70 - 99 MG/DL [facility] TO [facility] CONVERSION BUN 12 8 - 26 MG/DL [facility] TO [facility] CONVERSION CREATININE S/P/B 0.8 0.7 - 1.3 MG/DL [facility] TO [facility] CONVERSION SODIUM S/P/B 140 136 - 145 MMOL/L [facility] CONVERSION POTASSIUM S/P/B 3.8 3.5 - 5.1 MMOL/L [facility] TO [facility]IC CONVERSION CHLORIDE S/P/B 104 98 - 107 MMOL/L [facility] TO [facility] CONVERSION CO2 23.0 22 - 29 MMOL/L [facility] TO EPIC CONVERSION CALCIUM S/P/B 9.7 8.4 - 10.2 MG/DL [facility] TO EPIC CONVERSION GFR ESTIMATE >60 >60 ML/MIN/1.7 3 M2 [facility] TO [facility]IC CONVERSION EGFR AFR. AMER. >60 >60 ML/MIN/1.7 3 M2 [facility] TO [facility]IC CONVERSION ANION GAP 13.0 7 - 16 MMOL/L [facility] TO [facility]IC CONVERSION 11/26/2014 3:51 PM CDT 11/26/2014 3:51 PM CDT Narrative [facility] TO [facility] CONVERSION - 11/26/2014 4:26 PM CDT Result Communication: No patient communication needed at this time Danny Steiner MD LABORATORY Final Result [facility] TO [facility]IC CONVERSION * MRSA SCREENING (11/26/2014 3:45 PM CDT) [facility] MRSA BY PCR NASAL Methicillin resistant Staph aureus detected. CALLED TO [employer] 8.14.15, R AND V Critical result,specimen date,time were read back by ALEXI Mcgowan, at 1115 on 11/28/14.TS [facility] TO EPIC CONVERSION SPECIMEN SOURCE RESPIRATORY, NOSE PERFORMED AT [facility]; [address]; [place], [place] [address]; [phone] EXT [phone], UNLESS OTHERWISE NOTED. [facility] TO [facility] CONVERSION 11/26/2014 3:45 PM CDT 11/26/2014 3:45 PM CDT Narrative [facility] TO [facility] CONVERSION - 11/29/2014 1:36 PM CDT Result Communication: No patient communication needed at this time us Danny Steiner MD MICROBIOLOGY - GENERAL ORDERAB LES Final Result [facility] documented in this encounter Visit Diagnoses Not on filedocumented in this encounter Additional Health Concerns Infection Onset Date Last Indicated Resolved Time MRSA Comment:Negative MRSA 05/201903/11/2017 03/11/2017 10/03/2019 10:08 AM CDT documented as of this encounter Care Teams Button Sewing Machine Operator Relationship Specialty Start Date End Date Vernon Mercedes MD [address] [place] [phone] PCP - General FAMILY PRACTICE 10/27/15 12/02/21 Stanislaw Rhodes MD [address] [place] [address] [place] [phone] CARDIOVASCULAR DISEASE 10/27/15 10/24/18 Elza Allan MD [address] [place] [phone] [place] Director Labor Standards CARDIOVASCULAR DISEASE 08/19/16 Raul Santana MD [address] [place] [phone] CLINICAL CARDIAC ELECTROPHYSIOLOGY 06/16/17 Myah Handley, CRM TECHNICAL LEAD [address] [place] [phone] CARDIOVASCULAR DISEASE 06/16/17 07/10/19 documented as of this encounter
--- OUTSIDE RECORDS SUMMARY | 2024-04-23 04:31 | XMS_ITS | Encounter Summary ---
Author Organization [facility] Address [address] [place] [address]. [place], [place] [address] [place] [address] Care Team Providers Care Center Maker Hand Name Role Phone Vernon Mercedes MD Primary Care Provider [phone] Stanislaw Rhodes MD Unavailable Unavailab Evaristo Ying MD Unavailable UnavailRaul Suresh MD Unavailable UnavailMyah Elena NP Unavailable Unavailable Deven Cleary MD Unavailable Unavailable Encounter Details Date Type Department Care Team (Late Contact Info) Description 11/26/2014 Abstract [facility] [address] [place] [address] Danny Blackwell MD [address] [place], [place] [phone] Social History Tobacco Use Types Packs/Day Years [...] (Late Contact Info) Description 04/25/2024 11:00 AM CITIZENSHIP TEACHER Appointment [facility] [address] [facility] [place] [address] Ti Bonilla MD [address] [place] [phone] 05/23/2024 3:30 PM CITIZENSHIP TEACHER [facility] [address] [place] [address] Jyoti Escobar MD [address] [place] [address] documented as of this encounter Visit Diagnoses Diagnosis Arthropathy, lower leg Unspecified arthropathy, lower leg documented in this encounter Additional Health Concerns Infection Onset Date Last Indicated Resolved Time MRSA Comment:Negative MRSA 05/201903/11/2017 03/11/2017 10/03/2019 10:08 AM CDT documented as of this encounter Care Teams Center Maker Hand Relationship Specialty Start Date End Date Vernon Mercedes MD [address] [place] [address] PCP - General FAMILY PRACTICE 10/27/15 12/02/21 [place] [address] CARDIOVASCULAR DISEASE 10/27/15 10/24/18 [place] [address] [place] Whipped Topping Supervisor CARDIOVASCULAR DISEASE 08/19/16 [place] [address] CLINICAL CARDIAC ELECTROPHYSIOLOGY 06/16/17 Myah Handley [place] [address] CARDIOVASCULAR DISEASE 06/16/17 07/10/19 [place] [address] Public Relations Representative INTERVENTIONAL CARDIOLOGY 03/21/18 10/24/18 documented as of this encounter
--- OUTSIDE RECORDS SUMMARY | 2024-04-23 04:31 | XMS_ITS | Encounter Summary ---
Author Organization [facility] Address [address] [place] [address]. 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 [place] [address] Ti Bonilla MD [address] [place] [phone] 05/23/2024 3:30 PM ELEVATED MOTORMAN Office Visit [facility] [address] [place] [address] Jyoti Escobar MD [address] [place] [address] documented as of this encounter Procedures Procedure Name Priority Date/Time Associated Diagnosis Comments ORDER FRESH FROZEN PLASMA Routine 05/19/2016 8:55 AM ELEVATED MOTORMAN documented in this encounter Results * Order fresh frozen plasma (05/19/2016 8:55 AM ELEVATED MOTORMAN) UNITS ORDERED 4 05/19/2016 8:58 AM ELEVATED MOTORMAN [facility] 05/19/2016 8:55 AM ELEVATED MOTORMAN 05/19/2016 11:00 AM ELEVATED MOTORMAN us Generic Conversion Md [facility] PRODUCT [facility] Final Result Performing Organization Address City/State/[facility] Co de Phone Number [facility] [address] [place] [address], [phone] documented in this encounter Visit Diagnoses Not on filedocumented in this encounter Additional Health Concerns Infection Onset Date Last Indicated Resolved Time MRSA Comment:Negative MRSA 05/201903/11/2017 03/11/2017 10/03/2019 10:08 AM CDT documented as of this encounter Care Teams Fire Eater Relationship Specialty Start Date End Date [place] [address] PCP - General FAMILY PRACTICE 10/27/15 12/02/21 [place] [address] CARDIOVASCULAR DISEASE 10/27/15 10/24/18 Evaristo Allan MD [address] [place] [address] [place] Chairman And Ceo CARDIOVASCULAR DISEASE 08/19/16 documented as of this encounter
--- OUTSIDE RECORDS SUMMARY | 2024-04-23 04:31 | XMS_ITS | Encounter Summary ---
Author Organization [facility] Address [address] [place] [address]. [place], [place] [address] [place] [address] Care Team Providers Care Lunchroom Mother Name Role Phone Vernon Mercedes MD Primary Care Provider [phone] Stanislaw Rhodes MD Unavailable Unavailab Evaristo Ying MD Unavailable UnavailRaul Suresh MD Unavailable UnavailMyah Elena NP Unavailable Unavailable Deven Cleary MD Unavailable Unavailable Encounter Details Date Type Department Care Team (Late Contact Info) Description 03/04/2015 Abstract [facility] Diagnostic Imaging [address] [place] [address] Danny Blackwell MD [address] [place], [place] [phone] Social History Tobacco Use Types Packs/Day Years [...] (Late Contact Info) Description 04/25/2024 11:00 AM SAUSAGE STRINGER Appointment [facility] [address] [facility] [place] [address] Ti Bonilla MD [address] [place] [phone] 05/23/2024 3:30 PM SAUSAGE STRINGER [facility] [address] [place] [address] Jyoti Escobar MD [address] [place] [address] documented as of this encounter Visit Diagnoses Diagnosis Aftercare following joint replacement surgery Aftercare following joint replacement documented in this encounter Additional Health Concerns Infection Onset Date Last Indicated Resolved Time MRSA Comment:Negative MRSA 05/201903/11/2017 03/11/2017 10/03/2019 10:08 AM CDT documented as of this encounter Care Teams Lunchroom Mother Relationship Specialty Start Date End Date Vernon Mercedes MD [address] [place] [address] PCP - General FAMILY PRACTICE 10/27/15 12/02/21 [place] [address] CARDIOVASCULAR DISEASE 10/27/15 10/24/18 [place] [address] [place] Copyist CARDIOVASCULAR DISEASE 08/19/16 [place] [address] CLINICAL CARDIAC ELECTROPHYSIOLOGY 06/16/17 Myah Handley SENSOR [place] [address] CARDIOVASCULAR DISEASE 06/16/17 07/10/19 [place] [address] Pulp Grinder And Blender INTERVENTIONAL CARDIOLOGY 03/21/18 10/24/18 documented as of this encounter
--- OUTSIDE RECORDS SUMMARY | 2024-04-23 04:31 | XMS_ITS | Encounter Summary ---
Author Organization [facility] Address [address] [place] [address]. [place], [place] [address] [place] [address] Care Team Providers Care Billiard Parlor Manager Name Role Phone Vernon Mercedes MD Primary Care Provider Stanislaw Rhodes MD Unavailable Unavailab Evaristo Ying MD Unavailable UnavailRaul Suresh MD Unavailable UnavailMyah Elena NP Unavailable Unavailable Deven Cleary MD Unavailable Unavailable Encounter Details Date Type Department Care Team (Late st Contact Info) Description 11/04/[address] 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 [address] [place] [address] Ti Bonilla MD [address] [place] [phone] 05/23/2024 3:30 PM RATING EXAMINER [facility] [address] [place] [address] Jyoti Escobar MD [address] [place] [address] documented as of this encounter Visit Diagnoses Diagnosis Chest pain Chest pain, unspecified documented in this encounter Additional Health Concerns Infection Onset Date Last Indicated Resolved Time MRSA Comment:Negative MRSA 05/201903/11/2017 03/11/2017 10/03/2019 10:08 AM CDT documented as of this encounter Care Teams Billiard Parlor Manager Relationship Specialty Start Date End Date Vernon Mercedes MD [address] [place] [address] PCP - General FAMILY PRACTICE 10/27/15 12/02/21 [place] [address] CARDIOVASCULAR DISEASE 10/27/15 10/24/18 [place] [address] [place] Tire Wrapper CARDIOVASCULAR DISEASE 08/19/16 [place] [address] CLINICAL CARDIAC ELECTROPHYSIOLOGY 06/16/17 Myah Handley MEDICAL FRONT [place] [address] CARDIOVASCULAR DISEASE 06/16/17 07/10/19 [place] [address] Sql Report Analyst INTERVENTIONAL CARDIOLOGY 03/21/18 10/24/18 documented as of this encounter
--- OUTSIDE RECORDS SUMMARY | 2024-04-23 04:31 | XMS_ITS | Encounter Summary ---
Author Organization [facility] Address [address] [place] [address]. 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 [place] [address] Ti Bonilla MD [address] [place] [phone] 05/23/2024 3:30 PM MANUFACTURING TEAM LEADER Office Visit [facility] [address] [place] [address] Jyoti Escobar MD [address] [place], [place] [address] documented as of this encounter Procedures Procedure Name Priority Date/Time Associated Diagnosis Comments ACT (HMT OR LHMT) Routine 05/19/2016 1:5 0 PM MANUFACTURING TEAM LEADER documented in this encounter Results * (ABNORMAL) ACT (HMT OR LHMT) (05/19/2016 1:50 PM MANUFACTURING TEAM LEADER) ACTIVATED CLOTTING TIME (ACT HMT OR LMT) 337(H) 74 - 137 SEC 05/19/2016 1:55 PM MANUFACTURING TEAM LEADER [facility] ORDERS INTERFACE WHOLE BLOOD SPECIMEN / Unknown 05/19/2016 1:50 PM MANUFACTURING TEAM LEADER 05/19/2016 1:55 PM MANUFACTURING TEAM LEADER us Generic Conversion Md [facility] BLOOD ORDERABLES Fi nal Result [facility] ORDERS INTERFACE US documented in this encounter Visit Diagnoses Not on filedocumented in this encounter Additional Health Concerns Infection Onset Date Last Indicated Resolved Time MRSA Comment:Negative MRSA 05/201903/11/2017 03/11/2017 10/03/2019 10:08 AM CDT documented as of this encounter Care Teams Fire Fighters Dispatcher Relationship Specialty Start Date End Date Vernon Mercedes MD [address] [place] [address] PCP - General FAMILY PRACTICE 10/27/15 12/02/21 [place] [address] CARDIOVASCULAR DISEASE 10/27/15 7 [place] [address] [place] Lumber Piler Operator CARDIOVASCULAR DISEASE 08/19/16 documented as of this encounter
--- OUTSIDE RECORDS SUMMARY | 2024-04-23 04:31 | XMS_ITS | Encounter Summary ---
Author Organization [facility] Address [address] [place] [address]. [place], [place] [address] [place] [address] Care Team Providers Care Portable Track Crew Chief Name Role Phone Vernon Mercedes MD Primary Care Provider [phone] Stanislaw Rhodes MD Unavailable Unavailab Evaristo Ying MD Unavailable UnavailRaul Suresh MD Unavailable UnavailMyah Elena NP Unavailable Unavailable Deven Cleary MD Unavailable Unavailable Encounter Details Date Type Department Care Team (Late Contact Info) Description 11/19/[address] 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 file Not on file documented as of this encounter Plan of Treatment Upcoming Encounters Date Type Department Care Team (Late Contact Info) Description 04/25/2024 11:00 AM DRAFTER ASSISTANT Appointment [facility] [address] [place] [address] Ti Bonilla MD [address] [place] [address] 05/23/2024 3:30 PM DRAFTER ASSISTANT [facility] [address] [place] [address] Jyoti Escobar MD [address] [place] [address] documented as of this encounter Visit Diagnoses Diagnosis Atrial fibrillation ([facility]/HCC HHS/HCC) Atrial fibrillation documented in this encounter Additional Health Concerns Infection Onset Date Last Indicated Resolved Time MRSA Comment:Negative MRSA 05/201903/11/2017 03/11/2017 10/03/2019 10:08 AM CDT documented as of this encounter Care Teams Portable Track Crew Chief Relationship Specialty Start Date End Date Vernon Mercedes MD [address] [place] [address] PCP - General FAMILY PRACTICE 10/27/15 12/02/21 [place] [address] CARDIOVASCULAR DISEASE 10/27/15 10/24/18 [place] [address] [place] Linux Admin Engineer CARDIOVASCULAR DISEASE 08/19/16 [place] [address] CLINICAL CARDIAC ELECTROPHYSIOLOGY 06/16/17 [place] [address] CARDIOVASCULAR DISEASE 06/16/17 07/10/19 [place] [address] Spikemaking Supervisor INTERVENTIONAL CARDIOLOGY 03/21/18 10/24/18 documented as of this encounter
--- OUTSIDE RECORDS SUMMARY | 2024-04-23 04:31 | XMS_ITS | Encounter Summary ---
Author Organization [facility] Address [address] [place] [address]. 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 Not on file Not on file documented as of this encounter Last Filed Vital Signs Vital Sign Reading Time Taken Comments Blood Pressure 126/72 10/29/2015 9:58 AM CDT Pulse 62 10/29/2015 9:58 AM CDT Temperature 36.2 ??C (97.1 ??F) 10/29/2015 9:58 AM CD T Respiratory Rate 20 10/29/2015 9:58 AM CDT Oxygen Saturation 99% 10/29/2015 9:58 AM CDT Inhaled Oxygen Concentration - - Weight 131.5 kg (290 lb) 10/29/2015 9:58 AM CDT Height 177.8 cm (5' 10 ) 10/29/2015 9:58 AM CDT Body Mass Index 41.61 10/29/2015 9:58 AM CDT documented in this encounter Progress Notes * Stanislaw Rhodes MD - 10/29/2015 9:54 AM CDT Chief Complaint: Atrial Fibrillation Recommendations/Plan: 1. Atrial fibrillation appears to be fairly well controlled with resting HR of 80 bpm. However, given intermittent and freq palpitations, will change atenolol to Toprol XL 50mg po daily. Continue Warfarin for stroke prophylaxis. For now given underlying SARAI and dilated LA will pursue rate control strategy. 2. Has had CP with typical and atypical features. Given his risk factors will schedule lexiscan cardiolite stress test. 3. HTN appears to be suboptimally controlled. Will see what his readings will be after changing to Toprol XL, if still elevated, will add DELICIA-I (lisinopril at 10mg/d) and check BMP in 2-3 days given simultaneous use of Spironolactone. 4. Low salt Low cholesterol diet and regular exercise encouraged. 5. Follow up in 6 months. History of Present Illness: Recent diagnosis of A. Fib approx a month or two ago. 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 Denies any TIA/CVA in the past. Continues to have intermittent symptoms of palpitations but no associated LH/Dizziness/presyncope or syncope. Has had intermittent left sided chest discomfort, described as an ache 4/10 and not related to activity or exertion. Does have SARAI diagnosed but has not purchased CPAP yet. Denies any orthopnea, PND or LE edema. Medications: Current Outpatient Prescriptions: ??? atenolol 50 MG tablet, Take 50 mg by mouth daily., Disp: , Rfl: ??? atorvastatin 40 MG tablet, Take 40 mg by mouth daily., Disp: , Rfl: ??? insulin lispro 100 UNIT/ML injection (VIAL), Inject into the skin 3 (three) times daily before meals., Disp: , Rfl: ??? naproxen 500 MG tablet, Take 500 mg by mouth 2 (two) times daily as needed., Disp: , Rfl: ??? oxybutynin ER 5 MG 24 hr tablet, Take 5 mg by mouth daily., [...] needed for Pain., Disp: , Rfl: ??? warfarin 5 MG tablet, Take 5 mg by mouth daily. Daily or as dir, Disp: , Rfl: ??? metoprolol succinate 50 MG 24 hr tablet, Take 1 tablet (50 mg total) by mouth daily., Disp: 90 tablet, Rfl: 3 Allergies Allergen Reactions ??? Doxycycline Unknown Past Medical History Diagnosis Date ??? Arthritis ??? Atrial fibrillation ??? Cardiac dysrhythmia AF ??? Diabetes ??? GERD (gastroesophageal reflux disease) ??? Hyperlipidemia ??? Hypertension has had elevated B/P readings Past Surgical History Procedure Laterality Date ??? Knee arthroplasty ??? Hernia repair History Social History ??? Marital status: Spouse name: N/A ??? Number of children: 1 ??? 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 Smoking status: Never Smoker ??? Smokeless tobacco: Never Used ??? Alcohol use: Yes ??? Drug use: No ??? Sexual activity: Not on file Other Topics Concern ??? Exercise Yes walking ??? Special Diet No ??? Caffeine Concern Yes Social History Narrative No family history on file. No family status information on file. Review of Systems Constitutional: Positive for malaise/fatigue. Negative for weight loss. HENT: Negative for hearing loss. Eyes: Negative for blurred vision and double vision. Respiratory: Negative for cough, hemoptysis and wheezing. Cardiovascular: Positive for palpitations. Negative for chest pain. Gastrointestinal: Positive for heartburn. Negative for blood in stool and melena. Genitourinary: Negative for dysuria. Musculoskeletal: Negative for joint pain and myalgias. Skin: Negative for rash. Poorly healing ulcers on feet or legs Neurological: Negative for tingling, sensory change, focal weakness and headaches. Pain in feet at night Endo/Heme/Allergies: Negative for polydipsia. Bruises/bleeds easily. Filed Vitals: 10/29/15 0958 BP: 126/72 Pulse: 62 Resp: 20 Temp: 97.1 ??F (36.2 ??C) TempSrc: Oral SpO2: 99% Weight: 131.5 kg (290 lb) Height: 5' 10 (1.778 m) Physical Exam Constitutional: He is oriented to person, place, and time. He appears well- developed and well-nourished. No distress. Moderately obese HENT: Nose: No mucosal edema. Mouth/Throat: Oropharynx is clear and moist and mucous membranes are normal. No oropharyngeal exudate. Neck: Neck supple. No JVD present. Cardiovascular: Normal rate, S1 normal, S2 normal and intact distal pulses. An irregularly irregular rhythm present. PMI is not displaced. Exam reveals no gallop. No murmur heard. Pulmonary/Chest: Effort normal and breath sounds normal. No respiratory distress. Abdominal: Normal appearance. He exhibits no abdominal bruit and no mass. There is no hepatosplenomegaly. There is no tenderness. Musculoskeletal: Normal range of motion. He exhibits edema ( trace anya). He exhibits no deformity. Neurological: He is alert and oriented to person, place, and time. Skin: Skin is warm and dry. Psychiatric: He has a normal mood and affect. His behavior is normal. Thought content normal. No results found for this visit on 10/29/15. Diagnoses/Impression: 1. Persistent atrial fibrillation 2. Chest pain, unspecified chest pain type 3. Essential hypertension 4. senior living current use of anticoagulant therapy 5. SARAI (obstructive sleep apnea) [place] Documentation Completed: Atrial Fibrillation documented in this encounter Plan of Treatment Upcoming Encounters Date Type Department Care Team (Late st Contact Info) Description 04/25/2024 11:00 AM ASSISTANT GUEST SERVICES MANAGER Appointment [facility] [address] [facility] [address] Ti Bonilla MD [address] [place] [phone] 05/23/2024 3:30 PM ASSISTANT GUEST SERVICES MANAGER Office Visit [facility] [address] [place] [phone] Jyoti Escobar MD [address] [place] [address] documented as of this encounter Visit Diagnoses Diagnosis Persistent atrial fibrillation ([facility]/HCC HHS/HCC)- Primary Atrial fibrillation Chest pain, unspecified chest pain type Essential hypertension Unspecified essential hypertension rn long term care current use of anticoagulant therapy SARAI (obstructive sleep apnea) Obstructive sleep apnea (adult) (pediatric) documented in this encounter Care Teams Crime Laboratory Analyst Relationship Specialty Start Date End Date Vernon Mercedes MD [address] [place] [address] PCP - General FAMILY PRACTICE 10/27/15 12/02/21 Stanislaw Rhodes MD [address] [place] [address] CARDIOVASCULAR DISEASE 10/27/15 10/24/18 documented as of this encounter
--- OUTSIDE RECORDS SUMMARY | 2024-04-23 04:31 | XMS_ITS | Encounter Summary ---
Author Organization [facility] Address [address] [place] [address]. [place], [place] [address] [place] [address] Care Team Providers Care Montessori Teacher Name Role Phone Vernon Mercedes MD Primary Care Provider [phone] Stanislaw Rhodes MD Unavailable Unavailab Evaristo Ying MD Unavailable UnavailRaul Suresh MD Unavailable UnavailMyah Elena NP Unavailable Unavailable Deven Cleary MD Unavailable Unavailable Encounter Details Date Type Department Care Team (Late Contact Info) Description 11/07/[address] 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 [address] [place] [address] Ti Bonilla MD [address] [place] [address] 05/23/2024 3:30 PM PATTERNMAKER APPRENTICE WOOD [facility] [address] [place] [address] Jyoti Escobar MD [address] [place] [address] documented as of this encounter Visit Diagnoses Diagnosis Atrial fibrillation ([facility]/HCC HHS/HCC) Atrial fibrillation documented in this encounter Additional Health Concerns Infection Onset Date Last Indicated Resolved Time MRSA Comment:Negative MRSA 05/201903/11/2017 03/11/2017 10/03/2019 10:08 AM CDT documented as of this encounter Care Teams Montessori Teacher Relationship Specialty Start Date End Date Vernon Mercedes MD [address] [place] [address] PCP - General FAMILY PRACTICE 10/27/15 12/02/21 [place] [address] CARDIOVASCULAR DISEASE 10/27/15 10/24/18 [place] [address] [place] Loss Prevention Supervisor CARDIOVASCULAR DISEASE 08/19/16 [place] [address] CLINICAL CARDIAC ELECTROPHYSIOLOGY 06/16/17 [place] [address] CARDIOVASCULAR DISEASE 06/16/17 07/10/19 [place] [address] Piece Meat Trimmer INTERVENTIONAL CARDIOLOGY 03/21/18 10/24/18 documented as of this encounter
--- OUTSIDE RECORDS SUMMARY | 2024-04-23 04:31 | XMS_ITS | Encounter Summary ---
Author Organization [facility] Address [address] [place] [address]. 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 [place] [address] Ti Bonilla MD [address] [place] [phone] 05/23/2024 3:30 PM ACCOUNTS PAYABLE ASSOCIATE Office Visit [facility] [address] [place] [address] Jyoti Escobar MD [address] [place] [address] documented as of this encounter Visit Diagnoses Not on filedocumented in this encounter Care Teams Glue Size Machine Operator Relationship Specialty Start Date End Date Vernon Mercedes MD [address] [place] [phone] PCP - General FAMILY PRACTICE 10/27/15 12/02/21 Stanislaw Rhodes MD [address] [place] [address] CARDIOVASCULAR DISEASE 10/27/15 10/24/18 documented as of this encounter
--- OUTSIDE RECORDS SUMMARY | 2024-04-23 04:31 | XMS_ITS | Encounter Summary ---
Author Organization [facility] Address [address] [place] [address]. [place], [place] [address] [place] [address] Care Team Providers Care Medical Administrator Name Role Phone Vernon Delgado MD Primary Care Provider [phone] Stanislaw Rhodes MD Unavailable Unavailab le Reason for Visit * Reason Comments Consult Atrial Fibrillation Encounter Details Date Type Department Care Team (Latest Contact Info) Description 04/27/2016 10:00 AM FEATHER SEPARATOR Office Visit [facility] [address] [place] [phone] Raul Santana MD Consult (Atrial Fibrillation) Social History Tobacco Use Types Packs/Day Years [...] as of this encounter Progress Notes * Raul Santana MD - 04/27/2016 10:00 AM CST Reason for Visit: Consult (Atrial Fibrillation) Recommendations/Plan: #1 recurrent symptomatic paroxysmal atrial fibrillation: Mr. Zelaya is developing significant burdenof atrial fibrillation and his symptoms have been problematic for him. Although rate control has been successful at improving the symptoms he continues to have a significant burden of symptoms. I discussed with him at length and in considerable detail management strategies for atrial fibrillation including antiarrhythmic medication, rate control medications, and possible catheter ablation. We discussed the risks and benefits of each of these options at length and in considerable detail. He would like to be free of the arrhythmia as he is quite young and does not relatively looking forward to a long period dealing with the symptoms and problems related to the arrhythmia. We discussed the potentially curative nature of RF catheter ablation, and he would like to pursue this strategy. We discussed the procedure, its risks and benefits, as well as possible complications. We discussed risk ofcardiac perforation, heart attack, stroke, and . We discussed the potential need for repeat procedures as well as the possibility that he would continue to require medications after the procedure. Because of his hypertension and diabetes mellitus, he will continue oral anticoagulation long-term. Regarding his anticoagulation, I had a long discussion with him about the various agents available for stroke risk reduction. We discussed factor X A inhibitors as well as the direct thrombin inhibitor, dabigatran. We discussed the availability of a reversal agent and the ability to avoid long-termuse of warfarin, as well as avoiding the need for frequent monitoring of INR, and a paucity of druginteractions for the novel oral anticoagulants. We will check an INR today and if appropriate, stopwarfarin and start anticoagulation with Pradaxa at 150 mg twice daily. We will schedule pulmonary vein isolation and follow-up thereafter. Because of the large size of his left atrium, I suspect that linear ablation of the left atrium would be beneficial in reducing thefuture burden of reentrant atrial arrhythmias utilizing the substrate. History of Present Illness: Mr. Zelaya is a pleasant 56-year-old man with a history of diabetes mellitus, hypertension and hyperlipidemia. He was recently diagnosed with atrial fibrillation. He reports he has had short episodes of palpitations for almost a year. He was having episodes that lasted a few minutes in duration and some lasted longer. Most of these he was able to ignore but some of them became more symptomatic. Hepresented for evaluation and an EKG performed demonstrated atrial fibrillation. He was started on beta blockade with metoprolol and has had adequate heart rate control when in atrial fibrillation. Heis on warfarin for stroke risk reduction and has been frustrated by the frequent INR checks required. He has had some difficulty maintaining a therapeutic INR. He reports he has had intermittent symptoms of palpitations but has not had lightheadedness, dizziness, syncope or presyncope. He does not have a history of stroke or TIA symptoms. He does have a history of snoring and has been diagnosed with obstructive sleep apnea but has not started CPAP at thistime. He denies heart failure symptoms and reports that when he is in a normal rhythm he does not have exertional shortness of breath but in his abnormal rhythm becomes short of breath with minimal activity. Electrocardiogram today shows sinus rhythm at 80 bpm. A short [place] interval is noted. Medications: Current Outpatient Prescriptions: ??? atorvastatin 40 MG tablet, Take 40 mg by mouth daily., Disp: , Rfl: ??? dabigatran 150 MG Cap, Take 1 capsule (150 mg total) by mouth 2 (two) times daily., Disp: 180 capsule, Rfl: 3 ??? insulin lispro 100 UNIT/ML injection (VIAL), Inject into the skin 3 (three) times daily before meals., Disp: , Rfl: ??? metFORMIN 850 MG tablet, Take 850 mg by mouth 2 (two) times daily with meals., Disp: , Rfl: ??? metoprolol succinate 50 MG 24 hr tablet, Take 1 tablet (50 mg total) by mouth daily., Disp: 90 tablet, Rfl: 3 ??? oxybutynin ER 5 MG 24 hr [...] Date ??? Knee arthroplasty ??? Hernia repair Social History Social History ??? Marital status: Spouse name: N/A ??? Number of children: 1 ??? 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 Smoking [...] Brother Alive ??? Brother ??? Sister Alive Review of Systems Constitutional: Negative for malaise/fatigue and weight loss. HENT: Negative for hearing loss. Eyes: Negative for blurred vision and double vision. Respiratory: Negative for cough, hemoptysis and wheezing. Cardiovascular: Negative for chest pain and palpitations. Gastrointestinal: Negative for blood in stool and melena. Genitourinary: Negative for dysuria. Musculoskeletal: Negative for joint pain and myalgias. Skin: Negative for rash. Neurological: Negative for tingling, sensory change, focal weakness and headaches. Endo/Heme/Allergies: Negative for polydipsia. Does not bruise/bleed easily. Filed Vitals: 04/27/16 1008 BP: (P) 114/80 Pulse: (P) 80 Resp: (P) 14 Weight: (P) 127.1 kg (280 lb 3.2 oz) Height: (P) 5' 9.25 (1.759 m) Physical Exam Constitutional: He is oriented to person, place, and time. He appears well- developed and well-nourished. No distress. HENT: Nose: No mucosal edema. Mouth/Throat: Oropharynx [...] No results found for this visit on 04/27/16. Diagnoses/Impression: 1. Paroxysmal atrial fibrillation ELECTROCARDIOGRAM (NON [place] ACQUIRED) 2. [facility] current use of anticoagulant therapy PROTHROMBIN TIME, FINGERSTICK PROTHROMBIN TIME, FINGERSTICK 3. SARAI (obstructive sleep apnea) PINNACLE Documentation Completed: Atrial Fibrillation Referring Provider: Vernon Delgado PCP: VERNON DELGADO HER SEPARATOR documented in this encounter Plan of Treatment Upcoming Encounters Date Type Department Care Team (Late st Contact Info) Description 04/25/2024 11:00 AM FEATHER SEPARATOR Appointment [facility] [address] [place] [address] [place] [address] Ti Bonilla MD [address] [place] [phone] 05/23/2024 3:30 PM FEATHER SEPARATOR Office Visit [facility] [place] [address] Jyoti Escobar MD [address] [place] [phone] documented as of this encounter Procedures Procedure Name Priority Date/Time Associated Diagnosis Comments PROTHROMBIN TIME, FINGERSTICK Routine 04/27/2016 10:52 AM FEATHER SEPARATOR [facility] current use of anticoagulant therapy documented in this encounter Results * PROTHROMBIN TIME, FINGERSTICK (04/27/2016 10:52 AM FEATHER SEPARATOR) PROTIME WHOLE BLOOD 1.7 INR WHOLE BLOOD 1.70 04/27/2016 10:5 2 AM FEATHER SEPARATOR us Raul Santana MD LABORATORY Final Resul t documented in this encounter Visit Diagnoses Diagnosis Paroxysmal atrial fibrillation ([facility])- Primary Atrial fibrillation [facility] current use of anticoagulant therapy SARAI (obstructive sleep apnea) Obstructive sleep apnea (adult) (pediatric) documented in this encounter Care Teams Medical Administrator Relationship Specialty Start Date End Date Vernon Delgado MD [address] [place] [phone] PCP - General FAMILY PRACTICE 10/27/15 12/02/21 Stanislaw Rhodes MD [address] [place] [phone] CARDIOVASCULAR DISEASE 10/27/15 10/24/18 documented as of this encounter
--- OUTSIDE RECORDS SUMMARY | 2024-04-23 04:31 | XMS_ITS | Encounter Summary ---
Author Organization [facility] Address [address] [place] [address]. 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 Mercedes Reason: Chief Complaint Chief Complaint: The patient presents to the office today with RIGHT knee pain LEFT TKA follow up. History of Present Illness HPI: Patient comes to clinic today with a new complaint of RIGHT knee pain. He has had burning painfor the last two days. His pain is mostly at night and on the outisde of his RIGHT knee. He denies any start up pain. He denies any injury. He had previous RIGHT TKA by another doctor over 10 years ago. He has no complaints with his LEFT Knee after TKA on 12/06/2014. Review of Systems See HPI for pertinent [...] (M25.562) 11. 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) 12. Postoperative examination (V67.00) (Z09) 13. Recurrent ventral incisional hernia (553.21) (K43.2) 14. Right knee pain (719.46) (M25.561) Past Medical History 1. Abdominal pain (789.00) [...] Amoxicillin-Pot Clavulanate 875-125 MG Oral Tablet; Therapy: 75Zwc8154 to Recorded 2. Atenolol TABS; Therapy: (Recorded:12Etl3633) to Recorded 3. Atorvastatin Calcium 40 MG Oral Tablet; Therapy: 26Jun2014 to Recorded 4. HumaLOG 100 UNIT/ML Subcutaneous Solution; Therapy: 56Osg1955 to Recorded 5. Hydrocodone-Acetaminophen 5-325 MG Oral Tablet; Therapy: 19Jun2014 to Recorded 6. Hydrocodone-Acetaminophen 7.5-325 MG Oral Tablet ([place]); 1 q 6 hrs prn pain; Therapy: 60Sxl9505 to (Last Rx:21Jan2015) Ordered 7. Hydrocodone-Acetaminophen 7.5-325 MG Oral Tablet; TAKE 1 TABLET EVERY 6 HOURS NEEDED; Therapy: 29Ohi9270 to (Evaluate:29Jan2015); Last Rx:21Jan2015 Ordered 8. Levemir 100 UNIT/ML Subcutaneous Solution; Therapy: (Recorded:45Flm7036) to Recorded 9. MetFORMIN HCl TABS; Therapy: (Recorded:90Zcu2457) to Recorded 10. Naprosyn TABS (Naproxen); Therapy: (Recorded:78Vwh8942) to Recorded 11. Oxybutynin Chloride 5 MG Oral Tablet; Therapy: 21Jun2014 to Recorded 12. Ranitidine HCl TABS; Therapy: (Recorded:67Foh3532) to Recorded 13. Sure Comfort Insulin Syringe 31G X 5/16 0.3 ML Miscellaneous; Therapy: 15Oct2013 to Recorded 14. Sure Comfort Insulin Syringe 31G X 5/16 1 ML Miscellaneous; Therapy: 02Jul2014 to Recorded 15. Tamsulosin HCl - 0.4 MG Oral Capsule; Therapy: (Recorded:51Eqe8454) to Recorded 16. TraMADol HCl TABS; Therapy: (Recorded:93Ozj2331) to Recorded 17. TRUEplus Lancets 28G Miscellaneous; Therapy: 33Enx1303 to Recorded Allergies 1. Tetracyclines Physical Exam Constitutional: alert and in no acute distress. Neurological:. the patient was oriented to person, place, and time. mood and affect were appropriate. Eyes: pupils were equal in size, round, reactive to light, with normal accommodation. ENT: hearing was normal. Pulmonary: no respiratory distress. Skin: no injuries or skin lesions on the right lower extremity and no injuries or skin lesions on the left lower extremity. Right Knee: EXAM of his RIGHT knee reveals range of motion OK, no redness, no swelling, NVI, lateral tenderness Left Knee: EXAM today of his LEFT knee reveals range of motion 0 - 115, no tenderness Results/Data XRAYS today of his RIGHT knee reveals mild lysis under RIGHT tibia plate; LEFT reveals prosthesis in good position Findings: Assessment 1. Knee pain, right (719.46) (M25.561) Plan Aftercare following knee joint replacement surgery 1. XR Knee 1 to 2 View Lt; Status:Canceled; Aftercare following knee joint replacement surgery, Knee pain, right 2. XR Knees 2 or 3 Views Bi; Status:Active; Requested for:26Nov2015; Knee pain, right 3. Continue with our present treatment plan.; Status:Complete; Done: 17Dsv8915 09:28AM 4. You may continue or resume your normal level of activity.; Status:Complete; Done: 62Mhi5733 09:28AM 5. XR Knee 1 to 2 View Rt; Status:Canceled; Right knee pain 6. MethylPREDNISolone 4 MG Oral Tablet Therapy Pack (Medrol); as directed I have provided him a dose pack. I don't see any evidence of mechanical failure in his RIGHT TKA. He'll return in 3 months unless thing worsen. Signatures Electronically signed by : Danny Steiner M.D.; Nov 27 2015 9:28AM PE MANAGER (Author) documented in this encounter Plan of Treatment Upcoming Encounters Date Type Department Care Team (Late st Contact Info) Description 04/25/2024 11:00 AM PE MANAGER Appointment [facility] [address] [place] [address] Ti Bonilla MD [address] [place] [phone] 05/23/2024 3:30 PM PE MANAGER Office Visit [facility] [address] [place] [phone] Jyoti Escobar MD [address] [place] [address] documented as of this encounter Procedures Procedure Name Priority Date/Time Associated Diagnosis Comments XR KNEE STAND AP VANITA ONLY Routine 11/26/2015 3:49 PM CDT IMAGE GENERIC Routine 11/26/2015 3:49 PM CDT documented in this encounter Results * IMAGE GENERIC (11/26/2015 3:49 PM CDT) Anatomical Region Laterality Modality Other 11/26/2015 3:49 PM CDT 11/26/2015 3:49 PM CDT Narrative 11/26/2015 3:53 PM CDT [facility] ?? [address] [place] [address] ?? [place], [place] ? Patient Name: ELZA MCKEON Date of : 1960 ?? Med Rec #: [id number] ??Age/Sex: 55/M ?Pt. Location: ORTHO ?? Attending Provider: DANNY STEINER MD (TRACY) ?? Ordering Provider: DANNY STEINER MD (TRACY) ? Study Date Order Number Procedure ?? 11/26/15 [id number] XR Knee Standing Bi ? Signed ? 3 VIEWS OF BILATERAL KNEES ? Clinical History: Pain ? Comparison: None ? 3 views of bilateral knees reveal total arthroplasty changes within both the right and left ?? knee. The obtained images demonstrate no evidence of fracture. There is no evidence to suggest ?? hardware loosening as there is no lucency surrounding the hardware components. Components are ?? in good position with expected alignment. [place] views reveal both left and right patella to ?? reside in the expected location. No significant effusion is seen. Overall, the surrounding ?? soft tissues appear normal ? IMPRESSION: ? Expected postoperative appearance of both knees ? Electronically Signed By: KENYETTA ALEMAN MD 11/26/15 155 ? Dictated On: 11/26/151548 ?? Interpreted By: KENYETTA ALEMAN MD ?? Transcribed On: 11/26/15 154 - [facility] ?? Procedure Note Stephani Luz MD - 02/09/[address] Patient Name: ELZA MCKEON Date of : 1960 Med Rec #: [id number] Age/Sex: 55/M Pt. Location: ORTHO Attending Provider: DANNY STEINER MD (TRACY) Ordering Provider: DANNY STEINER MD (TRACY) Study Date Order Number Procedure 11/26/15 [id number] XR Knee Standing Bi Signed 3 VIEWS OF BILATERAL KNEES Clinical History: Pain Comparison: None 3 views of bilateral knees reveal total arthroplasty changes within boththe right and left knee. The obtained images demonstrate no evidence of fracture. There isno evidence to suggest hardware loosening as there is no lucency surrounding the hardwarecomponents. Components are in good position with expected alignment. [place] views reveal both leftand right patella to reside in the expected location. No significant effusion is seen.Overall, the surrounding soft tissues appear normal IMPRESSION: Expected postoperative appearance of both knees Electronically Signed By: KENYETTA ALEMAN MD 11/26/15 155 Dictated On: 11/26/151548 Interpreted By: KENYETTA ALEMAN MD Transcribed On: 11/26/15 1549 - [facility] us Danny Steiner MD SCANNING Final Result * XR KNEE STAND AP VANITA ONLY (11/26/2015 3:49 PM CDT) Anatomical Region Laterality Modality Knee Radiographic Shannan ging 11/26/2015 3:49 PM CDT 11/26/2015 3:49 PM CDT Narrative 11/26/2015 3:53 PM CDT [facility] ?? [address] [facility] ?? [place], [place] ? Patient Name: ELZA MCKEON Date of : 1960 ?? Med Rec #: [id number] ??Age/Sex: 55/M ?Pt. Location: ORTHO ?? Attending Provider: DANNY STEINER MD (TRACY) ?? Ordering Provider: DANNY STEINER MD (TRACY) ? Study Date Order Number Procedure ?? 11/26/15 [id number] XR Knee Standing Bi ? Signed ? 3 VIEWS OF BILATERAL KNEES ? Clinical History: Pain ? Comparison: None ? 3 views of bilateral knees reveal total arthroplasty changes within both the right and left ?? knee. The obtained images demonstrate no evidence of fracture. There is no evidence to suggest ?? hardware loosening as there is no lucency surrounding the hardware components. Components are ?? in good position with expected alignment. [place] views reveal both left and right patella to ?? reside in the expected location. No significant effusion is seen. Overall, the surrounding ?? soft tissues appear normal ? IMPRESSION: ? Expected postoperative appearance of both knees ? Electronically Signed By: KENYETTA ALEMAN MD 11/26/15 1552 ? Dictated On: 11/26/15 1549 ?? Interpreted By: KENYETTA ALEMAN MD ?? Transcribed On: 11/26/15 1549 - [facility] ?? Procedure Note Stephani Luz MD - 02/09/2018 [address] [facility] [place] Patient Name: ELZA MCKEON Date of : 1960 Med Rec #: [id number] Age/Sex: 55/M Pt. Location: ORTHO Attending Provider: DANNY STEINER MD (TRACY) Ordering Provider: DANNY STEINER MD (TRACY) Study Date Order Number Procedure 11/26/15 [id number] XR Knee Standing Bi Signed 3 VIEWS OF BILATERAL KNEES Clinical History: Pain Comparison: None 3 views of bilateral knees reveal total arthroplasty changes within boththe right and left knee. The obtained images demonstrate no evidence of fracture. There isno evidence to suggest hardware loosening as there is no lucency surrounding the hardwarecomponents. Components are in good position with expected alignment. [place] views reveal both leftand right patella to reside in the expected location. No significant effusion is seen.Overall, the surrounding soft tissues appear normal IMPRESSION: Expected postoperative appearance of both knees Electronically Signed By: KENYETTA ALEMAN MD 11/26/15 1552 Dictated On: 11/26/15 1542 Interpreted By: KENYETTA ALEMAN MD Transcribed On: 11/26/15 1549 - [facility] us Danny Steiner MD GENERAL IMAGING Final Result documented in this encounter Visit Diagnoses Not on filedocumented in this encounter Additional Health Concerns Infection Onset Date Last Indicated Resolved Time MRSA Comment:Negative MRSA 05/201903/11/2017 03/11/2017 10/03/2019 10:08 AM CDT documented as of this encounter Care Teams Industrial Roofer Relationship Specialty Start Date End Date [place] [address] PCP - General FAMILY PRACTICE 10/27/15 12/02/21 [place] [address] CARDIOVASCULAR DISEASE 10/27/15 10/24/18 [place] [place] [phone] [place] [employer] CARDIOVASCULAR DISEASE 08/19/16 Raul Sant[place] [phone] CLINICAL CARDIAC ELECTROPHYSIOLOGY 06/16/17 Myah Handley, [place] [phone] CARDIOVASCULAR DISEASE 06/16/17 07/10/19 documented as of this encounter
--- OUTSIDE RECORDS SUMMARY | 2024-04-23 04:31 | XMS_ITS | Encounter Summary ---
Author Organization [facility] Address [address] [place] [address]. [place], [place] [address] [place] [address] Care Team Providers Care Priming Powder Premix Blender Name Role Phone Vernon Mercedes MD Primary Care Provider [phone] Stanislaw Rhodes MD Unavailable Unavailab le Reason for Visit * Reason Onset Date Comments Appointment Request 02/19/2016 Encounter Details Date Type Department Care Team (Late st Contact Info) Description 02/19/2016 Telephone [facility] [address] [place] [address] Evaristo Allan MD Appointment Request [...] Progress Notes * Marcelle Madden RN - 02/19/2016 10:27 AM CDT Received a call from Dr Mercedes, pt seen by Dr Velasquez in the past, request appointment with [facility] for AF, pt recently moved to [place], placed in [facility] 03/04 at 3 PM. Demographics updated , letter sent documented in this encounter Plan of Treatment Upcoming Encounters Date Type Department Care Team (Late st Contact Info) Description 04/25/2024 11:00 AM EXTERIOR DESIGNER Appointment [facility] [address] [place] [address] Ti Boinlla MD [address] [place] [phone] 05/23/2024 3:30 PM EXTERIOR DESIGNER Office Visit [facility] [address] [place] [address] Jyoti Escobar MD [address] [place] [phone] documented as of this encounter Visit Diagnoses Not on filedocumented in this encounter Care Teams Priming Powder Premix Blender Relationship Specialty Start Date End Date Vernon Mercedes MD [address] [place] [address] PCP - General FAMILY PRACTICE 10/27/15 12/02/21 Stanislaw Rhodes MD [address] [place] [address] CARDIOVASCULAR DISEASE 10/27/15 10/24/18 documented as of this encounter
--- OUTSIDE RECORDS SUMMARY | 2024-04-23 04:31 | XMS_ITS | Encounter Summary ---
Author Organization [facility] Address [address] [place] [address]. [place], [place] [address] [place] [address] Care Team Providers Care Dairy Science Teacher Name Role Phone Vernon Mercedes MD Primary Care Provider Stanislaw Rhodes MD Unavailable Unavailab Evaristo Ying MD Unavailable UnavailRaul Suresh MD Unavailable UnavailMyah Elena NP Unavailable Unavailable Deven Cleary MD Unavailable Unavailable Encounter Details Date Type Department Care Team (Late st Contact Info) Description 09/23/[address] [address] [place] [address] Vernon Mercedes MD [address] [place] [phone] Social History Tobacco Use Types Packs/Day Years [...] st Contact Info) Description 04/25/2024 11:00 AM [address]EL MAKER [address] [facility] [address] [place] [address] Ti Bonilla MD [address] [place] [phone] 05/23/2024 3:30 PM BAGEL MAKER [facility] [address] [place] [address] Jyoti Escobar MD [address] [place] [address] documented as of this encounter Visit Diagnoses Diagnosis Other nonspecific abnormal finding of lung field documented in this encounter Additional Health Concerns Infection Onset Date Last Indicated Resolved Time MRSA Comment:Negative MRSA 05/201903/11/2017 03/11/2017 10/03/2019 10:08 AM CDT documented as of this encounter Care Teams Dairy Science Teacher Relationship Specialty Start Date End Date Vernon Mercedes MD [address] [place] [address] PCP - General FAMILY PRACTICE 10/27/15 12/02/21 [place] [address] CARDIOVASCULAR DISEASE 10/27/15 10/24/18 [place] [address] Worth Dozer Operator CARDIOVASCULAR DISEASE 08/19/16 [place] [address] CLINICAL CARDIAC ELECTROPHYSIOLOGY 06/16/17 Myah Handley, [place] [address] CARDIOVASCULAR DISEASE 06/16/17 07/10/19 [place] [address] Director Independent INTERVENTIONAL CARDIOLOGY 03/21/18 10/24/18 documented as of this encounter
--- OUTSIDE RECORDS SUMMARY | 2024-04-23 04:31 | XMS_ITS | Encounter Summary ---
Author Organization [facility] Address [address] [place] [address]. [place], [place] [address] [place] [address] Care Team Providers Care Door Worker Name Role Phone Vernon Mercedes MD Primary Care Provider [phone] Stanislaw Rhodes MD Unavailable Unavailab Evaristo Ying MD Unavailable UnavailRaul Suresh MD Unavailable UnavailMyah Elena NP Unavailable Unavailable Deven Cleary MD Unavailable Unavailable Encounter Details Date Type Department Care Team (Late st Contact Info) Description 09/19/[address] [facility] [address] [place] [address] Vernon Mercedes MD [address] [place] [phone] Social History Tobacco Use Types Packs/Day Years [...] st Contact Info) Description 04/25/2024 11:00 AM ADVOCACY DIRECTOR Appointment [facility] [address] [place] [address] Ti Bonilla MD [address] [place] [phone] 05/23/2024 3:30 PM ADVOCACY DIRECTOR [facility] [address] [place] [address] Jyoti Escobar MD [address] [place] [address] documented as of this encounter Visit Diagnoses Diagnosis Atrial fibrillation (CMS/HCC HHS/HCC) Atrial fibrillation documented in this encounter Additional Health Concerns Infection Onset Date Last Indicated Resolved Time MRSA Comment:Negative MRSA 05/201903/11/2017 03/11/2017 10/03/2019 10:08 AM CDT documented as of this encounter Care Teams Door Worker Relationship Specialty Start Date End [place] [address] PCP - General FAMILY PRACTICE 10/27/15 12/02/21 [place] [address] CARDIOVASCULAR DISEASE 10/27/15 10/24/18 [place] [address] [place] Certified Art Therapist CARDIOVASCULAR DISEASE 08/19/16 [place] [address] CLINICAL CARDIAC ELECTROPHYSIOLOGY 06/16/17 Myah Handley [employer] [place] [address] CARDIOVASCULAR DISEASE 06/16/17 07/10/19 [place] [address] Client Development Manager INTERVENTIONAL CARDIOLOGY 03/21/18 10/24/18 documented as of this encounter
--- OUTSIDE RECORDS SUMMARY | 2024-04-23 04:31 | XMS_ITS | Encounter Summary ---
Author Organization [facility] Address [address] [place] [address]. [place], [place] [address] [place] [address] Care Team Providers Care Patient Registration Clerk Name Role Phone Vernon Mercedes MD Primary Care Provider Stanislaw Rhodes MD Unavailable Unavailab Evaristo Ying MD Unavailable UnavailRaul Suresh MD Unavailable UnavailMyah Elena NP Unavailable Unavailable Deven Cleary MD Unavailable Unavailable Encounter Details Date Type Department Care Team (Late Contact Info) Description 03/09/2016 Abstract [facility] [address] [place] [address] Danny Blackwell MD [address] [place] [address] Social History Tobacco Use Types [...] 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 Not on file Not on file documented as of this encounter Plan of Treatment Upcoming Encounters Date Type Department Care Team (Late Contact Info) Description 04/25/2024 11:00 AM STONEWORK TRACER Appointment [facility] [address] [place] [address] Ti Bonilla MD [address] [place] [address] 05/23/2024 3:30 PM STONEWORK TRACER [facility] [address] [place] [address] Jyoti Escobar MD [address] [place] [address] documented as of this encounter Visit Diagnoses Diagnosis Encounter for follow-up examination after completed treatment for conditions other than malignant neoplasm documented in this encounter Additional Health Concerns Infection Onset Date Last Indicated Resolved Time MRSA Comment:Negative MRSA 05/201903/11/2017 03/11/2017 10/03/2019 10:08 AM CDT documented as of this encounter Care Teams Patient Registration Clerk Relationship Specialty Start Date End Date Vernon Mercedes MD [address] [place] [address] PCP - General FAMILY PRACTICE 10/27/15 12/02/21 [place] [address] CARDIOVASCULAR DISEASE 10/27/15 10/24/18 [place] [address] [place] Corn Detasseler CARDIOVASCULAR DISEASE 08/19/16 [place] [address] CLINICAL CARDIAC ELECTROPHYSIOLOGY 06/16/17 [place] [address] CARDIOVASCULAR DISEASE 06/16/17 07/10/19 [place] [address] Bottle Cleaner INTERVENTIONAL CARDIOLOGY 03/21/18 10/24/18 documented as of this encounter
--- OUTSIDE RECORDS SUMMARY | 2024-04-23 04:31 | XMS_ITS | Encounter Summary ---
Author Organization [facility] Address [address] [place] [address]. 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 Not on file Not on file documented as of this encounter Last Filed Vital Signs Vital Sign Reading Time Taken Comments Blood Pressure 102/66 03/08/2016 10:51 AM SNAILER Pulse 102 03/08/2016 10:51 AM SNAILER Temperature - - Respiratory Rate 18 03/08/2016 10:51 AM SNAILER Oxygen Saturation 95% 03/08/2016 10:51 AM SNAILER Inhaled Oxygen Concentration - - Weight 127.9 kg (282 lb) 03/08/2016 10:51 AM SNAILER Height 177.8 cm (5' 10 ) 03/08/2016 10:51 AM SNAILER Body Mass Index 40.46 03/08/2016 10:51 AM SNAILER documented in this encounter Patient Instructions * Patient Instructions* Marcelle Madden, [place] - 03/08/2016 11:05 AM SNAILER Images from the original note were not included. 1. Consult for arrhythmia - Dr Santana's office will call with appointment 2. Obtain EKG in clinic 3. Same medications Index Uzbek Related??topics Atrial Fibrillation [place] ?? Atrial fibrillation is a fast or irregular heartbeat that starts in the upper chambers of the heart and affects the ability of the heart to pump blood to the rest of the body. ?? You may need treatment with medicine, electric cardioversion, or an ablation procedure. ?? Follow your healthcare provider???s advice about exercising, eating a healthy diet, watching your weight, not smoking, and checking your blood pressure. What is atrial fibrillation? Atrial fibrillation (also called A-fib) is a fast or irregular heartbeat that starts in the upper chambers of the heart. The abnormal heartbeat affects the ability of the heart to pump blood to the rest of the body. What is the cause? An electrical signal in your heart starts each heartbeat, causing the heart muscle to squeeze (contract). Normally, this signal starts in the upper right chamber of the heart (the right atrium) at a place called the sinus node. The signal then follows normal pathways to the upper left atrium and tothe lower chambers of the heart (the ventricles). When you have atrial fibrillation, electrical signals don???t start in the normal place in the right atrium and don???t travel normally. This can cause the upper chambers of the heart (atria) to beatvery fast and not in a normal pattern. Common causes of heart rhythm problems are conditions that damage the heart, like coronary artery disease, heart attack, or heart failure. Problems with the heart valves are another common cause. The heart has 4 valves that open and closewith each heartbeat to help blood flow in the right direction through the heart. Other causes of atrial fibrillation include: ?? Health problems, such as a stroke, lung disease, diabetes, overactive thyroid gland, or high blood pressure ?? Abuse of alcohol or drugs, such as cocaine Sometimes no cause can be found. What are the symptoms? Some people don???t have any symptoms. When atrial fibrillation does cause symptoms, the most common ones are: ?? Feeling like your heart is beating too fast or too hard or skipping beats or fluttering ?? Feeling tired or weak all the time Symptoms that are more serious include: ?? Chest pain ?? Trouble breathing ?? Lightheadedness or dizziness ?? Confusion How is it diagnosed? Your healthcare provider will ask about your symptoms and medical history and examine you. Tests may include: ?? An ECG (also called an EKG), which measures and records your heartbeat. You may have an ECG while you are resting or while you exercise on a treadmill. You may also be asked to wear a small portable ECG monitor for a few days or sometimes a couple weeks. ?? Blood tests ?? An echocardiogram, which uses sound waves (ultrasound) to show the structures of the heart, likethe valves How is it treated? The goal of treatment is to help the heart keep a normal rhythm. Your treatment depends on the cause of the atrial fibrillation, how often you have symptoms, and the severity of your symptoms. If you have no symptoms, or your symptoms are fairly mild, you may not need treatment. For some people atrial fibrillation lasts just a short time and the heart goes back to a normal rhythm on its own. If you keep having spells of atrial fibrillation, treatment may help keep you from having so manyspells. If a health problem like a leaky heart valve is causing the atrial fibrillation, treating the health problem may also treat the fast or irregular heartbeat. Other possible treatments are: ?? Medicine: Your provider may prescribe medicine to slow or restore a normal heart rate and rhythm. You may also need medicine to prevent blood clots because when the heart beats irregularly, some of the blood can stay in the upper chambers too long. This makes it easier for blood clots to form, increasing your risk of having a stroke or heart attack. ?? Electrical cardioversion: First, you will be given medicine called anesthesia to keep you from feeling pain during the procedure. Then your chest will be given an electrical shock. The electrical shock should make your heart start beating normally again. You may need medicine to keep your heart rhythm normal after this procedure. ?? Ablation: Ablation is a procedure that uses a small tube called a catheter to deliver energy to the inside of the heart. The energy (usually radio waves) scars small areas of heart tissue. The scars block abnormal electrical pathways and help you have a normal heart rhythm. With some types of ablation treatment, you will also need a pacemaker. A pacemaker is an electronic device put under the skin of your chest to help control the heartbeat. How can I take care of myself? ?? Take your medicines as prescribed. ?? Keep your appointments for follow-up blood tests. ?? Make sure your healthcare provider knows about changes in your diet or medical condition. Your provider also needs to know about all prescription and nonprescription medicines, herbs, or supplements that you are taking. Some medicines may interact with your heart medicine or increase your risk for atrial fibrillation. ?? If you want to drink alcohol, ask your provider how much is safe for you to drink. ?? Follow your healthcare provider's instructions. Ask your provider: ?? How and when you will get your test results ?? How long it will take to recover ?? If there are activities you should avoid and when you can return to your normal activities ?? How to take care of yourself at home ?? What symptoms or problems you should watch for and what to do if you have them ?? Make sure you know when you should come back for a checkup. Keep all appointments for provider visits or tests. How can I help prevent atrial fibrillation? The best prevention is to have a heart-healthy lifestyle. ?? Keep a healthy weight. ?? Eat a healthy diet that is low in sodium and saturated and trans fat. ?? Stay fit with the right kind of exercise for you. ?? Decrease stress. ?? Don???t smoke. ?? Limit your use of alcohol. If you have heart disease or high blood pressure, follow your healthcare provider's instructions for treatment. Developed by [employer]. Adult Advisor 2015.3 published by [employer]. Last modified: 2015-07-09 Last reviewed: 2014-12-16 This content is reviewed periodically and is subject to change as new health information becomes available. The information is intended to inform and educate and is not a replacement for medical evaluation, advice, diagnosis or treatment by a healthcare professional. References Adult Advisor 2015.3 Index Copyright ?? 2016 [employer], a division of [employer]. All rights reserved. LER LER LER documented in this encounter Progress Notes * Evaristo Allan MD - 08/10/2016 5:56 PM CDT HISTORY OF PRESENT ILLNESS: Mr. Zelaya patient is seen in the [facility] [facility] clinic today in consultation. He is a former Patient of Dr. Velasquez. Mr. Zelaya has a history of chest pain with both typical and atypical features associated with a prior normal Regadenoson nuclear stress test. He also has a history of atrial fibrillation treated withWarfarin anticoagulation and heart rate control, as it was felt that it had become permanent in nature. He also has a history of hypertension as well as obstructive sleep apnea and hyperlipidemia, aswell as diabetes mellitus. Mr. Zelaya relates that he had an episode of a rapid heartbeat a few weeks ago, which he measured at156 beats per minute. It lasted overnight and was associated with some chest discomfort. He has noticed that he has had an increasing frequency of both palpitations and chest discomfort. The chest discomfort, however, usually only lasts a few seconds. Mr. Zelaya has been using his CPAP machine now for over 1 month to treat his obstructive sleep apnea. An EKG performed during the clinic visit to confirm the presence of normal sinus rhythm at a rate of 66 beats per minute. There was evidence of an incomplete right bundle branch block pattern. A Holter monitor was performed in November of this year, and demonstrated normal sinus rhythm with supraventricular ectopic beats and short runs of benign atrial tachycardia. RECOMMENDATIONS AND PLAN: Mr. Zelaya' chest pain syndrome does appear atypical in nature, but he hasbeen having increasing frequency of palpitations consistent with atrial fibrillation versus atrial tachycardias. Further evaluation and treatment is warranted. After a long discussion in the clinic, I recommend the following to Mr. Zelaya: 1. Continue present medical regimen without alteration for now. 2. Formal electrophysiology consultation for management of the atrial fibrillation and consideration of RF ablation. 3. Annual followup in the cardiology clinic. * Evaristo Allan MD - 03/04/2016 3:00 PM CST Reason for Visit: Arrhythmia and Follow Up Medications: Current Outpatient Prescriptions: ??? diltiazem 60 MG tablet, Take 60 mg by mouth 4 (four) times daily. Take 1/2 tab 4 X's daily, Disp: , Rfl: ??? atorvastatin 40 MG tablet, Take 40 mg by mouth daily., Disp: , Rfl: ??? insulin lispro 100 UNIT/ML injection (VIAL), Inject into the skin 3 (three) times daily before meals., Disp: , Rfl: ??? metoprolol succinate [...] Daily or as dir, Disp: , Rfl: Allergies Allergen Reactions ??? 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 Smoking status: Never Smoker ??? Smokeless tobacco: Never Used ??? Alcohol use Yes ??? Drug use: No ??? Sexual activity: Not Asked Other Topics Concern ??? Exercise Yes walking ??? Special Diet No ??? Caffeine Concern Yes Social History Narrative No family history on file. No family status information on file. Review of Systems Constitutional: Negative for malaise/fatigue and weight loss. HENT: Negative for hearing loss. Eyes: Negative for blurred vision and double vision. Respiratory: Negative for cough, hemoptysis and wheezing. Cardiovascular: Positive for chest pain and palpitations. Gastrointestinal: Negative for blood in stool and melena. Genitourinary: Negative for dysuria. Musculoskeletal: Negative for joint pain and myalgias. Skin: Negative for rash. Neurological: Negative for tingling, sensory change, focal weakness and headaches. Endo/Heme/Allergies: Negative for polydipsia. Does not bruise/bleed easily. Filed Vitals: 03/08/16 1051 BP: 102/66 Pulse: 102 Resp: 18 SpO2: 95% Weight: 127.9 kg (282 lb) [...] side, and 2+ on the left side. Irregularly irregular heart rate Pulmonary/Chest: Effort normal and breath sounds normal. Abdominal: Soft. Normal appearance. He exhibits no abdominal bruit and no mass. There is no hepatosplenomegaly. There is no tenderness. Musculoskeletal: He exhibits no edema. No severe kyphoscoliosis. Neurological: He is oriented to person, place, and time. Neuro exam grossly normal. Skin: Skin is warm, dry and intact. No cyanosis. Nails show no clubbing. Without evidence of xanthoma. Psychiatric: He has a normal mood and affect. No results found for this visit on 03/04/16. Diagnoses/Impression: 1. Cardiac dysrhythmia 2. Essential hypertension 3. Persistent atrial fibrillation 4. 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 5. SARAI (obstructive sleep apnea) [place] Documentation Completed: Atrial Fibrillation Referring Provider: No ref. provider found PCP: VERNON DELGADO documented in this encounter Plan of Treatment Upcoming Encounters Date Type Department Care Team (Late st Contact Info) Description 04/25/2024 11:00 AM SNAILER Appointment [facility] [address] [place] [address] Ti Bonilla MD [address] [place] [phone] 05/23/2024 3:30 PM SNAILER Office Visit [facility] [address] [place] [address] Jyoti Escobar MD [address] [place] [address] documented as of this encounter Visit Diagnoses Diagnosis Essential hypertension- Primary Unspecified essential hypertension Paroxysmal atrial fibrillation (CMS/HCC HHS/HCC) Atrial fibrillation SARAI (obstructive sleep apnea) Obstructive sleep apnea (adult) (pediatric) FDC current use of anticoagulant therapy documented in this encounter Care Teams Unscrambler Relationship Specialty Start Date End Date Vernon Delgado MD [address] [place] [address] PCP - General FAMILY PRACTICE 10/27/15 12/02/21 Stanislaw Rhodse MD [address] [place] [address] CARDIOVASCULAR DISEASE 10/27/15 10/24/18 documented as of this encounter
--- OUTSIDE RECORDS SUMMARY | 2024-04-23 04:31 | XMS_ITS | Encounter Summary ---
Author Organization [facility] Address [address] [place] [address]. [place] [address] [place] [address] Care Team Providers Care Cafeteria Server Name Role Phone Unavailable Primary Care Provider Unavailabl e Encounter Details Date Type Department Care Team (Late Contact Info) Description 09/19/2015 Abstract [facility] [address] [place] [address] Stephani Luz MD Social History Tobacco Use Types Packs/Day [...] (Late Contact Info) Description 04/25/2024 11:00 AM ASTHMA EDUCATOR Appointment [facility] [address] [place] [address] Ti Bonilla MD [address] [place] [phone] 05/23/2024 3:30 PM ASTHMA EDUCATOR Office Visit [facility] [address] [place] [phone] Jyoti Escobar MD [address] [place] [address] documented as of this encounter Visit Diagnoses Not on filedocumented in this encounter
--- OUTSIDE RECORDS SUMMARY | 2024-04-23 04:31 | XMS_ITS | Encounter Summary ---
Author Organization [facility] Address [address] [place] [address]. [place], [place] [address] [place] [address] Care Team Providers Care Railway Signal Operator Name Role Phone Vernon Mercedes MD Primary Care Provider [phone] Stanislaw Rhodes MD Unavailable Unavailab Evaristo Ying MD Unavailable UnavailRaul Suresh MD Unavailable UnavailMyah Elena NP Unavailable Unavailable Deven Cleary MD Unavailable Unavailable Encounter Details Date Type Department Care Team (Late Contact Info) Description 05/15/[address] 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 [address] [place] [address] Ti Bonilla MD [address] [place] [address] 05/23/2024 3:30 PM DIRECTOR OF COMMUNITY EDUCATION Office Visit [facility] [address] [place] [address] Jyoti Escobar MD [address] [place] [address] documented as of this encounter Visit Diagnoses Diagnosis Type 2 diabetes mellitus without complications ([facility]/HCC [facility]) Type II or unspecified type diabetes mellitus without mention of complication, not stated as uncontrolled documented in this encounter Additional Health Concerns Infection Onset Date Last Indicated Resolved Time MRSA Comment:Negative MRSA 05/201903/11/2017 03/11/2017 10/03/2019 10:08 AM CDT documented as of this encounter Care Teams Railway Signal Operator Relationship Specialty Start Date End Date [place] [address] PCP - General FAMILY PRACTICE 10/27/15 12/02/21 [place] [address] CARDIOVASCULAR DISEASE 10/27/15 10/24/18 [place] [address] [place] Rail Car Unloader CARDIOVASCULAR DISEASE 08/19/16 [place] [address] CLINICAL CARDIAC ELECTROPHYSIOLOGY 06/16/17 [place] [address] CARDIOVASCULAR DISEASE 06/16/17 07/10/19 [place] [address] Winding Inspector And Tester INTERVENTIONAL CARDIOLOGY 03/21/18 10/24/18 documented as of this encounter
--- OUTSIDE RECORDS SUMMARY | 2024-04-23 04:31 | XMS_ITS | Encounter Summary ---
Author Organization [facility] Address [address] [place] [address]. [place], [place] [address] [place] [address] Care Team Providers Care Bank Runner Name Role Phone Vernon Mercedes MD Primary Care Provider [phone] Stanislaw Rhodes MD Unavailable Unavailab Evaristo Ying MD Unavailable UnavailRaul Suresh MD Unavailable UnavailMyah Elena NP Unavailable Unavailable Deven Cleary MD Unavailable Unavailable Encounter Details Date Type Department Care Team (Late Contact Info) Description 02/17/2016 Abstract [facility] [address] [place] [address] Vernon Mercedes MD [address] [place] [address] Social History Tobacco Use Types [...] 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 Not on file documented as of this encounter Plan of Treatment Upcoming Encounters Date Type Department Care Team (Late Contact Info) Description 04/25/2024 11:00 AM SILK SPREADER Appointment [facility] [address] [place] [address] Ti Bonilla MD [address] [place] [address] 05/23/2024 3:30 PM SILK SPREADER Office Visit [facility] [address] [place] [address] Jyoti Escobar MD [address] [place] [address] documented as of this encounter Visit Diagnoses Diagnosis Atrial fibrillation ([facility]/HCC HHS/HCC) Atrial fibrillation documented in this encounter Additional Health Concerns Infection Onset Date Last Indicated Resolved Time MRSA Comment:Negative MRSA 05/201903/11/2017 03/11/2017 10/03/2019 10:08 AM CDT documented as of this encounter Care Teams Bank Runner Relationship Specialty Start Date End Date Vernon Mercedes MD [address] [place] [address] PCP - General FAMILY PRACTICE 10/27/15 12/02/21 [place] [address] CARDIOVASCULAR DISEASE 10/27/15 10/24/18 [place] [address] [place] Pointer Machine Operator CARDIOVASCULAR DISEASE 08/19/16 [place] [address] CLINICAL CARDIAC ELECTROPHYSIOLOGY 06/16/17 [place] [address] CARDIOVASCULAR DISEASE 06/16/17 07/10/19 [place] [address] Hr Specialist INTERVENTIONAL CARDIOLOGY 03/21/18 10/24/18 documented as of this encounter
--- OUTSIDE RECORDS SUMMARY | 2024-04-23 04:31 | XMS_ITS | Encounter Summary ---
Author Organization [facility] Address [address] [place] [address]. [place], [place] [address] [place] [address] Care Team Providers Care Popcorn Candy Maker Name Role Phone Vernon Mercedes MD Primary Care Provider [phone] Stanislaw Rhodes MD Unavailable Unavailab Evaristo Ying MD Unavailable Unavailabl Raul Duran MD Unavailable Unavailabl Myah Gee NP Unavailable Unavailable Encounter Details Date Type Department Care Team (Latest Contact Info) Description 12/12/2014 Abstract [facility] Danny Blackwell MD [address] [place] [address] Social History Tobacco Use Types Packs/Day [...] 04/25/2024 11:00 AM LIGHT COIL WINDER Appointment [facility] [place] [address] Ti Bonilla MD [address] [place] [phone] 05/23/2024 3:30 PM LIGHT COIL WINDER Office Visit [facility] [address] [place] [phone] Jyoti Escobar MD [address] [place] [address] documented as of this encounter Visit Diagnoses Not on filedocumented in this encounter Additional Health Concerns Infection Onset Date Last Indicated Resolved Time MRSA Comment:Negative MRSA 05/201903/11/2017 03/11/2017 10/03/2019 10:08 AM CDT documented as of this encounter Care Teams Popcorn Candy Maker Relationship Specialty Start Date End Date Vernon Mercedes MD [address] [place] [address] PCP - General FAMILY PRACTICE 10/27/15 12/02/21 Stanislaw Rhodes MD [address] [place] [address] CARDIOVASCULAR DISEASE 10/27/15 10/24/18 Evaristo Allan MD [address] [place] [address] [place] Repossession Agent CARDIOVASCULAR DISEASE 08/19/16 Raul Santana MD [address] [place] [address] CLINICAL CARDIAC ELECTROPHYSIOLOGY 06/16/17 Myah Handley NP [address] [place] [address] CARDIOVASCULAR DISEASE 06/16/17 07/10/19 documented as of this encounter
--- OUTSIDE RECORDS SUMMARY | 2024-04-23 04:31 | XMS_ITS | Encounter Summary ---
Author Organization [facility] Address [address] [place] [address]. 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 [place] [address] Ti Bonilla MD [address] [place] [phone] 05/23/2024 3:30 PM OCCUP THERAPIST Office Visit [facility] [address] [place] [address] Jyoti Escobar MD [address] [place], [place] [address] documented as of this encounter Procedures Procedure Name Priority Date/Time Associated Diagnosis Comments ACT (HMT OR LHMT) Routine 05/19/2016 2:1 9 PM OCCUP THERAPIST documented in this encounter Results * (ABNORMAL) ACT (HMT OR LHMT) (05/19/2016 2:19 PM OCCUP THERAPIST) ACTIVATED CLOTTING TIME (ACT HMT OR LMT) 332(H) 74 - 137 SEC 05/19/2016 2:24 PM OCCUP THERAPIST [facility] INTERFACE WHOLE BLOOD SPECIMEN / Unknown 05/19/2016 2:19 PM OCCUP THERAPIST 05/19/2016 2:24 PM OCCUP THERAPIST us Generic Conversion Md [facility] BLOOD ORDERABLES Fi nal Result [facility] ORDERS INTERFACE US documented in this encounter Visit Diagnoses Not on filedocumented in this encounter Additional Health Concerns Infection Onset Date Last Indicated Resolved Time MRSA Comment:Negative MRSA 05/201903/11/2017 03/11/2017 10/03/2019 10:08 AM CDT documented as of this encounter Care Teams Call Box Wirer Relationship Specialty Start Date End Date Vernon Mercedes MD [address] [place] [address] PCP - General FAMILY PRACTICE 10/27/15 12/02/21 [place] [address] CARDIOVASCULAR DISEASE 10/27/15 7 [place] [address] [place] Preventive Maintenance Engineer CARDIOVASCULAR DISEASE 08/19/16 documented as of this encounter
--- OUTSIDE RECORDS SUMMARY | 2024-04-23 04:31 | XMS_ITS | Encounter Summary ---
Author Organization [facility] Address [address] [place] [address]. 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 [place] [address] Ti Bonilla MD [address] [place] [address] 05/23/2024 3:30 PM ASSET PROTECTION LEAD Office Visit [facility] [place] [address] Jyoti Escobar MD [address] [place] [address] documented as of this encounter Procedures Procedure Name Priority Date/Time Associated Diagnosis Comments ECG 12-LEAD Routine 05/19/2016 4:18 PM ASSET PROTECTION LEAD ECG 12-LEAD Routine 05/19/2016 10:23 AM ASSET PROTECTION LEAD documented in this encounter Results * ECG 12 lead (05/19/2016 4:18 PM ASSET PROTECTION LEAD) 05/19/2016 4:18 PM ASSET PROTECTION LEAD Narrative [facility] - 05/19/2016 5:59 PM ASSET PROTECTION LEAD ? [facility] ? [address], [place] ??[address] ? Test Date: ?2016-05-19 Pat Name: ? ELZA MCKEON ? Department: ?? 1 ? Room: ? CRU1 Gender: ? M ?Marketing Researcher: ?? TJ : ?1960 ? Requested By: EVE CARRERA Order Number: [id number] ? Jose Antonio OSMAN: ?? Valeriy Florian ? Measurements Intervals ?[place] ? Rate: ? 65 ? P: ?33 MO: ? 117 ?QRS: ?13 QRSD: ? 112 ?T: ?34 QT: ? 414 ? QTc: ?432 ? Interpretive Statements SINUS RHYTHM WITH SINUS ARRHYTHMIA WITH SHORT MO INTERVAL INCOMPLETE RIGHT BUNDLE BRANCH BLOCK T PROTECTION LEAD Procedure Note Stephani Osman MD - 12/11/2018 [facility] [address] [place] [address] Test Date: 2016-05-19 Pat Name: ELZA MCKEON Department: 1 Room: [facility] Gender: M Marketing Researcher: TJ : 1960 Requested By: EVE CARRERA Order Number: [id number] Reading : Valeriy Florian Measurements Intervals [place] Rate: 65 P: 33 MO: 117 QRS: 13 QRSD: 112 T: 34 QT: 414 QTc: 432 Interpretive Statements SINUS RHYTHM WITH SINUS ARRHYTHMIA WITH SHORT MO INTERVAL INCOMPLETE RIGHT BUNDLE BRANCH BLOCK T PROTECTION LEAD us Generic Conversion Md OSMAN ECG ORDERABLES Final R esult [facility] * ECG 12 lead (05/19/2016 10:23 AM ASSET PROTECTION LEAD) 05/19/2016 10:2 3 AM ASSET PROTECTION LEAD Narrative [facility] - 05/19/2016 6:06 PM ASSET PROTECTION LEAD ? [facility] ? [address], [place] ??[address] ? Test Date: ?2016-05-19 Pat Name: ? ELZA MCKEON ? Department: ?? 1 ? Room: ? CRU1 Gender: ? M ?Marketing Researcher: ?? TJ : ?1960 ? Requested By: EVE CARRERA Order Number: [id number] ? Reading : ?? Valeriy Florian ? Measurements Intervals ?[place] ? Rate: ? 61 ? P: ?19 MO: ? 133 ?QRS: ?29 QRSD: ? 105 ?T: ?7 QT: ? 391 ? QTc: ?396 ? Interpretive Statements SINUS RHYTHM WITH MARKED SINUS ARRHYTHMIA LOW QRS VOLTAGE IN PRECORDIAL LEADS INCOMPLETE RIGHT BUNDLE BRANCH BLOCK T PROTECTION LEAD Procedure Note Stephani Osman MD - 12/11/2018 [place] [address] [place] [address] Test Date: 2016-05-19 Pat Name: [facility] Department: 1 Room: [facility] Gender: M Marketing Researcher: TJ : 1960 Requested By: EVE CARRERA Order Number: [id number] Reading : Valeriy Florian Measurements Intervals [place] Rate: 61 P: 19 MO: 133 QRS: 29 QRSD: 105 T: 7 QT: 391 QTc: 396 Interpretive Statements SINUS RHYTHM WITH MARKED SINUS ARRHYTHMIA LOW QRS VOLTAGE IN PRECORDIAL LEADS INCOMPLETE RIGHT BUNDLE BRANCH BLOCK T PROTECTION LEAD us Generic Conversion Md OSMAN ECG ORDERABLES Final R [facility]ult [facility] documented in this encounter Visit Diagnoses Not on filedocumented in this encounter Additional Health Concerns Infection Onset Date Last Indicated Resolved Time MRSA Comment:Negative MRSA 05/201903/11/2017 03/11/2017 10/03/2019 10:08 AM CDT documented as of this encounter Care Teams Forest Fire Specialist Supervisor Relationship Specialty Start Date End Date Vernon Mercedes MD [address] [place] [address] PCP - General FAMILY PRACTICE 10/27/15 12/02/21 Stanislaw Rhodes MD [address] [place] [address] CARDIOVASCULAR DISEASE 10/27/15 10/24/18 Elza Allan MD [address] [place] [address] [place] Order Planner CARDIOVASCULAR DISEASE 08/19/16 Eve Carrera MD [address] [place] [address] CLINICAL CARDIAC ELECTROPHYSIOLOGY 06/16/17 [place] [address] CARDIOVASCULAR DISEASE 06/16/17 07/10/19 documented as of this encounter
--- OUTSIDE RECORDS SUMMARY | 2024-04-23 04:31 | XMS_ITS | Encounter Summary ---
Author Organization [facility] Address [address] [place] [address]. [place], [place] [address] [place] [address] Care Team Providers Care Community Music Therapist Name Role Phone Vernon Mercedes MD Primary Care Provider [phone] Stanislaw Rhodes MD Unavailable Unavailab Evaristo Ying MD Unavailable UnavailRaul Suresh MD Unavailable UnavailMyah Elena NP Unavailable Unavailable Deven Cleary MD Unavailable Unavailable Encounter Details Date Type Department Care Team (Late Contact Info) Description 01/21/2015 Abstract [facility] [address] [place] [address] Danny Blackwell MD [address] [place], [place] [phone] Social History Tobacco Use Types Packs/Day Years [...] (Late Contact Info) Description 04/25/2024 11:00 AM MARKETING DATABASE COORDINATOR Appointment [facility] [address] [facility] [place] [address] Ti Bonilla MD [address] [place] [phone] 05/23/2024 3:30 PM MARKETING DATABASE COORDINATOR [facility] [address] [place] [address] Jyoti Escobar MD [address] [place] [address] documented as of this encounter Visit Diagnoses Diagnosis Aftercare following joint replacement surgery Aftercare following joint replacement documented in this encounter Additional Health Concerns Infection Onset Date Last Indicated Resolved Time MRSA Comment:Negative MRSA 05/201903/11/2017 03/11/2017 10/03/2019 10:08 AM CDT documented as of this encounter Care Teams Community Music Therapist Relationship Specialty Start Date End Date Vernon Mercedes MD [address] [place] [address] PCP - General FAMILY PRACTICE 10/27/15 12/02/21 [place] [address] CARDIOVASCULAR DISEASE 10/27/15 10/24/18 [place] [address] [place] Ophthalmic Technician CARDIOVASCULAR DISEASE 08/19/16 [place] [address] CLINICAL CARDIAC ELECTROPHYSIOLOGY 06/16/17 Myah Handley PROFESSOR [place] [address] CARDIOVASCULAR DISEASE 06/16/17 07/10/19 [place] [address] Pizza Hut Assistant INTERVENTIONAL CARDIOLOGY 03/21/18 10/24/18 documented as of this encounter
--- OUTSIDE RECORDS SUMMARY | 2024-04-23 04:31 | XMS_ITS | Encounter Summary ---
Author Organization [facility] Address [address] [place] [address]. [place], [place] [address] [place] [address] Care Team Providers Care Retail Coordinator Name Role Phone Vernon Mercedes MD Primary Care Provider [phone] Stanislaw Rhodes MD Unavailable Unavailab Evaristo Ying MD Unavailable UnavailRaul Suresh MD Unavailable UnavailMyah Elena NP Unavailable Unavailable Encounter Details Date Type Department Care Team (Late st Contact Info) Description 10/25/2014 Abstract [facility] [address] [place] [address] Danny Blackwell MD [address] [place], [place] [phone] Social History Tobacco Use Types Packs/Day Years Used Date Smoking Tobacco: Never Assessed Sex and Gender Information Value Date Recorded Sex Assigned at Not on file Legal Sex Male 10:30 AM CDT Gender Identity Not on file Sexual Orientation Not on file documented as of this encounter Progress Notes * Danny Blackwell MD - 10/25/2014 9:00 AM CDT Post-Op Evaristo Zelaya is status post medial meniscectomy of the left knee on 08/07/2014. 3 months post op. Patient still struggling with pain. Only minimal relief. Continues to walk with a limp. He has participating in physical therapy. HPI: The patient reports no swelling, no calf swelling and no leg pain. The patient also reports weight-bearing as tolerated, but not using an assistive device for ambulation. PE: The surgical incision site was (the incision site was intact and had no drainage ). The surrounding skin findings included normal appearance. The knee demonstrates. Limp, medial joint line tenderness and pain, patella crepitus, effusion. Limp. Assessment: Post-op, the patient has poor pain control, but is doing well and is showing no signs of infection. Plan: Activity Restrictions: None and Advance as tolerated. HPI: PE: Assessment: Plan: Follow up: as needed. Assessment 1. Aftercare following surgery (V58.89) (Z48.89) Signatures Electronically signed by : Danny Blackwell M.D.; Oct 28 2014 2:27PM TURKISH LINE ATTENDANT (Author) documented in this encounter Plan of Treatment Upcoming Encounters Date Type Department Care Team (Late st Contact Info) Description 04/25/2024 11:00 AM TURKISH LINE ATTENDANT Appointment [facility] [address] [place] [address] Ti Bonilla MD [address] [place] [phone] 05/23/2024 3:30 PM TURKISH LINE ATTENDANT Office Visit [facility] [address] [place] [address] Jyoti Escobar MD [address] [place] [address] documented as of this encounter Visit Diagnoses Not on filedocumented in this encounter Additional Health Concerns Infection Onset Date Last Indicated Resolved Time MRSA Comment:Negative MRSA 05/201903/11/2017 03/11/2017 10/03/2019 10:08 AM CDT documented as of this encounter Care Teams Retail Coordinator Relationship Specialty Start Date End Date Vernon Mercedes MD [address] [place] [address] PCP - General FAMILY PRACTICE 10/27/15 12/02/21 Stanislaw Rhodes MD [address] [place] [address] CARDIOVASCULAR DISEASE 10/27/15 10/24/18 Evaristo Allan MD [address] [place] [address] [place] Automotive Designer CARDIOVASCULAR DISEASE 08/19/16 Raul Santana MD [address] [place] [address] CLINICAL CARDIAC ELECTROPHYSIOLOGY 06/16/17 Myah Handley, HOSPICE NURSE PRACTITIONER [address] [place] [address] [place] [address] CARDIOVASCULAR DISEASE 06/16/17 07/10/19 documented as of this encounter
--- OUTSIDE RECORDS SUMMARY | 2024-04-23 04:31 | XMS_ITS | Encounter Summary ---
Author Organization [facility] Address [address] [place] [address]. [place], [place] [address] [place] [address] Care Team Providers Care Property Management Accountant Name Role Phone Vernon Mercedes MD Primary Care Provider [phone] Stanislaw Rhodes MD Unavailable Unavailab Evaristo Ying MD Unavailable UnavailRaul Suresh MD Unavailable UnavailMyah Elena NP Unavailable Unavailable Deven Cleary MD Unavailable Unavailable Encounter Details Date Type Department Care Team (Late st Contact Info) Description 10/26/[address] [facility] [address] [place] [address] Vernon Mercedes MD [address] [place] [phone] Social History Tobacco Use Types Packs/Day Years Used Date Smoking Tobacco: Never Smokeless Tobacco: Never Alcohol Use Standard Drinks/Week Comments No 0 (1 standard drink = 0.6 oz pur e alcohol) Sex and Gender Information Value Date Recorded Sex Assigned at Not on file Legal Sex Male 10:30 AM CDT Gender Identity Not on file Sexual Orientation Not on file documented as of this encounter Plan of Treatment Upcoming Encounters Date Type Department Care Team (Late st Contact Info) Description 04/25/2024 11:00 AM PLASTIC WELDING MACHINE OPERATOR Appointment [facility] [address] [place] [address] Ti Bonilla MD [address] [place] [address] 05/23/2024 3:30 PM PLASTIC WELDING MACHINE OPERATOR Office Visit [facility] [address] [place] [address] Jyoti Escobar MD [address] [place] [address] documented as of this encounter Visit Diagnoses Diagnosis Atrial fibrillation ([facility]/HCC HHS/HCC) Atrial fibrillation documented in this encounter Additional Health Concerns Infection Onset Date Last Indicated Resolved Time MRSA Comment:Negative MRSA 05/201903/11/2017 03/11/2017 10/03/2019 10:08 AM CDT documented as of this encounter Care Teams Property Management Accountant Relationship Specialty Start Date End Date Vernon Mercedes MD [address] [place] [address] PCP - General FAMILY PRACTICE 10/27/15 12/02/21 [place] [address] CARDIOVASCULAR DISEASE 10/27/15 10/24/18 [place] [address] [place] Delivery Representative CARDIOVASCULAR DISEASE 08/19/16 [place] [address] CLINICAL CARDIAC ELECTROPHYSIOLOGY 06/16/17 Myah Handley MECHANICAL ENGINEER[place] [address] CARDIOVASCULAR DISEASE 06/16/17 07/10/19 [place] [address] [place] Dishwasher INTERVENTIONAL CARDIOLOGY 03/21/18 10/24/18 documented as of this encounter
--- OUTSIDE RECORDS SUMMARY | 2024-04-23 04:31 | XMS_ITS | Encounter Summary ---
Author Organization [facility] Address [address] [place] [address]. [place], [place] [address] [place] [address] Care Team Providers Care Skilled Trades Teacher Name Role Phone Vernon Mercedes MD Primary Care Provider [phone] Stanislaw Rhodes MD Unavailable Unavailab Evaristo Ying MD Unavailable UnavailRaul Suresh MD Unavailable UnavailMyah Elena NP Unavailable Unavailable Deven Cleary MD Unavailable Unavailable Danny Blackwell MD Unavailable [phone] Gayle Arce APRN, ESOL INSTRUCTOR-C Unavailable [phone] Ti Bonilla MD Primary Care Provider [phone] Mendel Shah DPM Unavailable [phone] Jyoti Escobar MD Unavailable Encounter Details Date Type Department Care Team (Late st Contact Info) Description 09/26/2015 Abstract [facility] AT [address] [place] [address] Valeriy Florian MD [address] [place] [address], [address] [place], [place] [phone] Social History Tobacco Use Types Packs/Day Years [...] st Contact Info) Description 04/25/2024 11:00 AM CLERK OPERATOR Appointment [facility] [address] [place] [address] Ti Bonilla MD [address] [place] [phone] 05/23/2024 3:30 PM CLERK OPERATOR Office Visit [facility] [address] [place] [address] Jyoti Escobar MD [address] [place] [address] documented as of this encounter Visit Diagnoses Not on filedocumented in this encounter Additional Health Concerns Infection Onset Date Last Indicated Resolved Time MRSA Comment:Negative MRSA 05/201903/11/2017 03/11/2017 10/03/2019 10:08 AM CDT COVID-19 Rule Out 10/12/2019 10/12/2019 10/13/2019 9:43 PM CDT COVID-19 Rule Out 04/16/2021 04/16/2021 04/16/2021 12:50 PM CLERK OPERATOR COVID-19 Confirmed 04/16/2021 04/16/2021 12:32 AM CLERK OPERATOR COVID-19 Rule Out 05/23/2021 05/23/2021 05/25/2021 3:02 PM CLERK OPERATOR COVID-19 Rule Out 05/25/2021 05/25/2021 05/26/2021 3:50 AM CLERK OPERATOR COVID-19 Rule Out 08/31/2021 08/31/2021 09/01/2021 8:03 PM CDT COVID-19 Rule Out 11/14/2021 11/14/2021 11/14/2021 6:17 PM CDT documented as of this encounter Care Teams Skilled Trades Teacher Relationship Specialty Start Date End Date Vernon Mercedes MD [address] [place] [address] PCP - General FAMILY PRACTICE 10/27/15 12/02/21 Ti Bonilla MD [address] [place] [address] PCP - General FAMILY PRACTICE 12/03/21 Stanislaw Rhodes MD [address] [place] [address] CARDIOVASCULAR DISEASE 10/27/15 10/24/18 Evaristo Allan MD [address] [place] [address] [employer] Engineering Technician CARDIOVASCULAR DISEASE 08/19/16 Raul Santana MD On license of [facility] [place] [address] CLINICAL CARDIAC ELECTROPHYSIOLOGY 06/16/17 Myah Handley, ESOL INSTRUCTOR [address] [place] [address] CARDIOVASCULAR DISEASE 06/16/17 07/10/19 Deven Cleary MD On license of [facility] [place] [address] Ad Copy Writer INTERVENTIONAL CARDIOLOGY 03/21/18 10/24/18 Danny Blackwell MD [address] [place] [address] ORTHOPAEDIC SURGERY 05/01/19 Gayle Arce, DIRECTOR GIFT, ESOL INSTRUCTOR-C [address] [facility] [address] [place] [address] NURSE PRACTITIONER 03/03/20 Mendel Shah, DPM [address] [place] [address] Consulting Physician PODIATRY/SURGERY 06/27/23 06/26/24 Jyoti Escobar MD [address] [place] [address] INTERVENTIONAL CARDIOLOGY 12/27/23 documented as of this encounter
--- OUTSIDE RECORDS SUMMARY | 2024-04-23 04:31 | XMS_ITS | Encounter Summary ---
Author Organization [facility] Address [address] [place] [address]. [place], [place] [address] [place] [address] Care Team Providers Care Stack Clerk Name Role Phone Vernon Mercedes MD Primary Care Provider [phone] Stanislaw Rhodes MD Unavailable Unavailab Evaristo Ying MD Unavailable UnavailRaul Suresh MD Unavailable UnavailMyah Elena NP Unavailable Unavailable Deven Cleary MD Unavailable Unavailable Encounter Details Date Type Department Care Team (Late Contact Info) Description 10/25/2014 Abstract [facility] [address] [place] [address] Danny Blackwell MD [address] [place], [place] [phone] Social History Tobacco Use Types Packs/Day Years [...] (Late Contact Info) Description 04/25/2024 11:00 AM SALES DIRECTOR Appointment [facility] [address] [facility] [place] [address] Ti Bonilla MD [address] [place] [phone] 05/23/2024 3:30 PM SALES DIRECTOR [facility] [address] [place] [address] Jyoti Escobar MD 9 [place] [address] documented as of this encounter Visit Diagnoses Diagnosis Encounter for other specified aftercare documented in this encounter Additional Health Concerns Infection Onset Date Last Indicated Resolved Time MRSA Comment:Negative MRSA 05/201903/11/2017 03/11/2017 10/03/2019 10:08 AM CDT documented as of this encounter Care Teams Stack Clerk Relationship Specialty Start Date End Date Vernon Mercedes MD [address] [place] [address] PCP - General FAMILY PRACTICE 10/27/15 12/02/21 [place] [address] CARDIOVASCULAR DISEASE 10/27/15 10/24/18 [place] [address] [employer] CARDIOVASCULAR DISEASE 08/19/16 [place] [address] CLINICAL CARDIAC ELECTROPHYSIOLOGY 06/16/17 Myah Handley, VICE PRESIDENT AND [place] [address] CARDIOVASCULAR DISEASE 06/16/17 07/10/19 [place] [address] Dedicated Regional Driver INTERVENTIONAL CARDIOLOGY 03/21/18 10/24/18 documented as of this encounter
--- OUTSIDE RECORDS SUMMARY | 2024-04-23 04:31 | XMS_ITS | Encounter Summary ---
Author Organization [facility] Address [address] [place] [address]. [place] [address] [place] [address] Care Team Providers Care Channel Process Plant Operator Name Role Phone Vernon Mercedes MD Primary Care Provider [phone] Stanislaw Rhodes MD Unavailable Unavailab le Reason for Visit * Reason Onset Date Comments Medication Information 04/28/2016 Nurse karin led to let us know about Pt medications. Encounter Details Date Type Department Care Team (Late st Contact Info) Description 04/28/2016 Telephone [facility] [address] [place] [address] Raul Santana MD Medication Information (Nurse called to let us know about Pt medications.) Social History Tobacco Use Types Packs/Day Years [...] encounter Progress Notes * Janeen Hugo - 04/28/2016 1:53 PM CST kristen Negro/Dr. Mercedes's office called to let our office that Pt never refilled his Diltiazem from 03/08, but is now. She stated Pt is also on 50 mg Metoprolol daily. Should you need to call her for any specifics, please call [phone]. ION ASSESSMENT SPECIALIST documented in this encounter Plan of Treatment Upcoming Encounters Date Type Department Care Team (Late st Contact Info) Description 04/25/2024 11:00 AM MISSION ASSESSMENT SPECIALIST Appointment [facility] [address] [place] [address] Ti Bonilla MD [address] [place] [phone] 05/23/2024 3:30 PM MISSION ASSESSMENT SPECIALIST Office Visit [facility] [address] [place] [address] Jyoti Escobar MD [address] [place] [address] documented as of this encounter Visit Diagnoses Not on filedocumented in this encounter Care Teams Channel Process Plant Operator Relationship Specialty Start Date End Date Vernon Mercedes MD [address] [place] [address] PCP - General FAMILY PRACTICE 10/27/15 12/02/21 Stanislaw Rhodes MD [address] [place] [address] CARDIOVASCULAR DISEASE 10/27/15 10/24/18 documented as of this encounter
--- OUTSIDE RECORDS SUMMARY | 2024-04-23 04:31 | XMS_ITS | Encounter Summary ---
Author Organization [facility] Address [address] [place] [address]. [place], [place] [address] [place] [address] Care Team Providers Care Community Support Professional Name Role Phone Unavailable Primary Care Provider Unavailabl e Encounter Details Date Type Department Care Team (Late Contact Info) Description 09/19/2015 Scan [facility] [address] [place] [address] Stephani Luz MD Social History [...] (Late Contact Info) Description 04/25/2024 11:00 AM PLASTICS SCIENTIST Appointment [facility] [address] [place] [address] Ti Bonilla MD [address] [place] [phone] 05/23/2024 3:30 PM PLASTICS SCIENTIST Office Visit [facility] [address] [place] [phone] Jyoti Escobar MD [address] [place] [address] documented as of this encounter Visit Diagnoses Not on filedocumented in this encounter
--- OUTSIDE RECORDS SUMMARY | 2024-04-23 04:31 | XMS_ITS | Encounter Summary ---
Author Organization [facility] Address [address] [place] [address]. 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 [place] [address] Ti Bonilla MD [address] [place] [phone] 05/23/2024 3:30 PM MEDICAL SOCIAL CONSULTANT Office Visit [facility] [address] [address] Jyoti Escobar MD [address] [place] [address] documented as of this encounter Visit Diagnoses Not on filedocumented in this encounter Care Teams Carriage Dogger Relationship Specialty Start Date End Date Vernon Mercedes MD [address] [place] [phone] PCP - General FAMILY PRACTICE 10/27/15 12/02/21 Stanislaw Rhodes MD [address] [place] [address] CARDIOVASCULAR DISEASE 10/27/15 10/24/18 documented as of this encounter
--- OUTSIDE RECORDS SUMMARY | 2024-04-23 04:31 | XMS_ITS | Encounter Summary ---
Author Organization [facility] Address [address] [place] [address]. [place], [place] [address] [place] [address] Care Team Providers Care Differential Repairer Name Role Phone Vernon Mercedes MD Primary Care Provider [phone] Stanislaw Rhodes MD Unavailable Unavailab Evaristo Ying MD Unavailable UnavailRaul Suresh MD Unavailable UnavailMyah Elena NP Unavailable Unavailable Deven Cleary MD Unavailable Unavailable Encounter Details Date Type Department Care Team (Late st Contact Info) Description 09/16/2015 Abstract [facility] [address] [place] [address] Vernon Mercedes MD [address] [place] [address] Social History Tobacco Use Types Packs/Day Years [...] st Contact Info) Description 04/25/2024 11:00 AM RUBBER GOODS TESTER Appointment [facility] [address] [place] [address] Ti Bonilla MD [address] [place] [phone] 05/23/2024 3:30 PM RUBBER GOODS TESTER [facility] [address] [place] [address] Jyoti Escobar MD [address] [place] [address] documented as of this encounter Visit Diagnoses Diagnosis Atrial fibrillation (CMS/HCC HHS/HCC) Atrial fibrillation documented in this encounter Additional Health Concerns Infection Onset Date Last Indicated Resolved Time MRSA Comment:Negative MRSA 05/201903/11/2017 03/11/2017 10/03/2019 10:08 AM CDT documented as of this encounter Care Teams Differential Repairer Relationship Specialty Start Date End Date Vernon Mercedes MD [address] [place] [address] PCP - General FAMILY PRACTICE 10/27/15 12/02/21 [place] [address] CARDIOVASCULAR DISEASE 10/27/15 10/24/18 [place] [address] Chester [employer] Business Specialist CARDIOVASCULAR DISEASE 08/19/16 [place] [address] CLINICAL CARDIAC ELECTROPHYSIOLOGY 06/16/17 Myah Handley GEAR TOOTH LAPPING [place] [address] CARDIOVASCULAR DISEASE 06/16/17 07/10/19 [place] [address] Manager Of International INTERVENTIONAL CARDIOLOGY 03/21/18 10/24/18 documented as of this encounter
--- OUTSIDE RECORDS SUMMARY | 2024-04-23 04:31 | XMS_ITS | Encounter Summary ---
Author Organization [facility] Address [address] [place] [address]. [place], [place] [address] [place] [address] Care Team Providers Care Debubblizer Name Role Phone Vernon Mercedes MD Primary Care Provider [phone] Stanislaw Rhodes MD Unavailable Unavailab Evaristo Ying MD Unavailable UnavailRaul Suresh MD Unavailable UnavailMyah Elena NP Unavailable Unavailable Dveen Cleary MD Unavailable Unavailable Encounter Details Date Type Department Care Team (Late Contact Info) Description 09/04/2014 Abstract [facility] [address] [place] [address] Danny Blackwell MD [address] [place], [place] [phone] Social History Tobacco Use Types Packs/Day Years [...] (Late Contact Info) Description 04/25/2024 11:00 AM TRAINING AND DEVELOPMENT COORDINATOR Appointment [facility] [address] [place] [address] Ti Bonilla MD [address] [place] [phone] 05/23/2024 3:30 PM TRAINING AND DEVELOPMENT COORDINATOR [facility] [address] [place] [address] Jyoti Escobar MD [address] [place] [address] documented as of this encounter Visit Diagnoses Diagnosis Encounter for other specified aftercare documented in this encounter Additional Health Concerns Infection Onset Date Last Indicated Resolved Time MRSA Comment:Negative MRSA 05/201903/11/2017 03/11/2017 10/03/2019 10:08 AM CDT documented as of this encounter Care Teams Debubblizer Relationship Specialty Start Date End Date Vernon Mercedes MD [address] [place] [address] PCP - General FAMILY PRACTICE 10/27/15 12/02/21 [place] [address] CARDIOVASCULAR DISEASE 10/27/15 10/24/18 [place] [address] [place] [employer] Technician CARDIOVASCULAR DISEASE 08/19/16 [place] [address] CLINICAL CARDIAC ELECTROPHYSIOLOGY 06/16/17 Myah Handley, C[place]TER [place] [address] CARDIOVASCULAR DISEASE 06/16/17 07/10/19 [place] [address] Lead Man Over All Dies In Pattern Shop INTERVENTIONAL CARDIOLOGY 03/21/18 10/24/18 documented as of this encounter
--- OUTSIDE RECORDS SUMMARY | 2024-04-23 04:31 | XMS_ITS | Encounter Summary ---
Author Organization [facility] Address [address] [place] [address]. 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 [address] [place] [address] Ti Bonilla MD [address] [place] [address] 05/23/2024 3:30 PM GAS REGULATOR REPAIRER HELPER Office Visit [facility] [address] [place] [address] Jyoti Escobar MD [address] [place] [address] documented as of this encounter Visit Diagnoses Not on filedocumented in this encounter Care Teams Hris Developer Relationship Specialty Start Date End Date Vernon Mercedes MD [address] [place] [address] PCP - General FAMILY PRACTICE 10/27/15 12/02/21 Stanislaw Rhodes MD [address] [place] [address] CARDIOVASCULAR DISEASE 10/27/15 10/24/18 documented as of this encounter
--- OUTSIDE RECORDS SUMMARY | 2024-04-23 04:31 | XMS_ITS | Encounter Summary ---
Author Organization [facility] Address [address] [place] [address]. 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 [address] [place] [address] Ti Bonilla MD [address] [place] [address] 05/23/2024 3:30 PM WASTEWATER ANALYST Office Visit [facility] [address] [place] [phone] Jyoti Escobar MD [address] [place] [address] documented as of this encounter Visit Diagnoses Not on filedocumented in this encounter Care Teams Security System Analyst Relationship Specialty Start Date End Date Vernon Mercedes MD [address] [place] [address] PCP - General FAMILY PRACTICE 10/27/15 12/02/21 Stanislaw Rhodes MD [address] [place] [address] CARDIOVASCULAR DISEASE 10/27/15 10/24/18 documented as of this encounter
--- OUTSIDE RECORDS SUMMARY | 2024-04-23 04:31 | XMS_ITS | Encounter Summary ---
Author Organization [facility] Address [address] [place] [address]. [place], [place] [address] [place] [address] Care Team Providers Care Manager Bilingual Name Role Phone Vernon Mercedes MD Primary Care Provider [phone] Stanislaw Rhodes MD Unavailable Unavailab Evaristo Ying MD Unavailable UnavailRaul Suresh MD Unavailable UnavailMyah Elena NP Unavailable Unavailable Deven Cleary MD Unavailable Unavailable Encounter Details Date Type Department Care Team (Late Contact Info) Description 12/24/2014 Abstract [facility] [address] [place] [address] Danny Blackwell MD [address] [place], [place] [phone] Social History Tobacco Use Types Packs/Day Years [...] (Late Contact Info) Description 04/25/2024 11:00 AM FLARER Appointment [facility] [address] [place] [address] Ti Bonilla MD [address] [place] [address] 05/23/2024 3:30 PM FLARER [facility] [address] [place] [address] Jyoti Escobar MD 9 [place] [address] documented as of this encounter Visit Diagnoses Diagnosis Aftercare following joint replacement documented in this encounter Additional Health Concerns Infection Onset Date Last Indicated Resolved Time MRSA Comment:Negative MRSA 05/201903/11/2017 03/11/2017 10/03/2019 10:08 AM CDT documented as of this encounter Care Teams Manager Bilingual Relationship Specialty Start Date End Date Vernon Mercedes MD [address] [place] [address] PCP - General FAMILY PRACTICE 10/27/15 12/02/21 [place] [address] CARDIOVASCULAR DISEASE 10/27/15 10/24/18 [place] [address] Winding Inspector CARDIOVASCULAR DISEASE 08/19/16 [place] [address] CLINICAL CARDIAC ELECTROPHYSIOLOGY 06/16/17 Myah Handley, [place] [address] CARDIOVASCULAR DISEASE 06/16/17 07/10/19 [place] [address] Slubber Tender INTERVENTIONAL CARDIOLOGY 03/21/18 10/24/18 documented as of this encounter
--- OUTSIDE RECORDS SUMMARY | 2024-04-23 04:31 | XMS_ITS | Encounter Summary ---
Author Organization [facility] Address [address] [place] [address]. [place] [address] [place] [address] Care Team Providers Care Exhibits Curator Name Role Phone Vernon Mercedes MD Primary Care Provider [phone] Stanislaw Rhodes MD Unavailable Unavailab le Reason for Visit * Reason Onset Date Comments Results 11/04/2015 Encounter Details Date Type Department Care Team (Late Contact Info) Description 11/04/2015 Telephone [facility] [place] [facility] [address] [place] [address] Stanislaw Rhodes MD Results Social History Tobacco Use Types [...] (Late Contact Info) Description 04/25/2024 11:00 AM MANAGER OF SOFTWARE [facility]ointment [facility] [address] Ti Bonilla MD [address] [place] [phone] 05/23/2024 3:30 PM MANAGER OF SOFTWARE Office Visit [facility] [address] [place] [address] Jyoti Escobar MD [address] [place] [address] documented as of this encounter Visit Diagnoses Not on filedocumented in this encounter Care Teams Exhibits Curator Relationship Specialty Start Date End Date Vernon Mercedes MD [address] [place] [phone] PCP - General FAMILY PRACTICE 10/27/15 12/02/21 Stanislaw Rhodes MD [address] [place] [address] CARDIOVASCULAR DISEASE 10/27/15 10/24/18 documented as of this encounter
--- OUTSIDE RECORDS SUMMARY | 2024-04-23 04:31 | XMS_ITS | Encounter Summary ---
Author Organization [facility] Address [address] [place] [address]. [place], [place] [address] [address] Care Team Providers Care Staff Reporter Name Role Phone Vernon Mercedes MD Primary Care Provider [phone] Stanilsaw Rhodes MD Unavailable Unavailab Evaristo Ying MD Unavailable UnavailRaul Suresh MD Unavailable UnavailMyah Elena NP Unavailable Unavailable Encounter Details Date Type Department Care Team (Late st Contact Info) Description 09/19/2014 Abstract [place] [id number] [place] [address] Danny Blackwell MD [address] [place], [place] [phone] Social History Tobacco Use Types Packs/Day Years Used Date Smoking Tobacco: Never Assessed Sex and Gender Information Value Date Recorded Sex Assigned at Not on file Legal Sex Male 10:30 AM CDT Gender Identity Not on file Sexual Orientation Not on file documented as of this encounter Progress Notes * Danny Blackwell MD - 09/19/2014 4:30 PM CDT Post-Op HE will work at home with exercises. Evraisto Zelaya is status post medial meniscectomy of the left knee on 08/07/2014. 6 weeks post op. Patient has been participating in physical therapy. He reports a catching at 20 degrees. HPI: The patient reports no excessive pain, no swelling, no calf swelling and no leg pain. The patient also reports weight-bearing as tolerated, but not using an assistive device for ambulation. PE: The knee demonstrates no warmth, no erythema and no swelling . Positive Grind, positive apprehension, medial joint line tenderness, painful pop. ROM as expected given post-op status. Tests for DVT and compartment syndrome reveal no calf swelling and no calf tenderness. Peripheral neurovascular exam reveals intact sensation to light touch and intact gross motor function. Assessment: Post-op, the patient has fair pain control, but is doing well and is showing no signs of infection. Plan: Done this visit:. Previous XRAYS were reviewed and demonstrates laterla patella osteophyte. Follow up: 6 weeks. Assessment 1. Aftercare following surgery (V58.89) (Z48.89) 2. 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) Signatures Electronically signed by : Danny Blackwell M.D.; Sep 23 2014 9:22AM PACKAGING CLERK (Author) documented in this encounter Plan of Treatment Upcoming Encounters Date Type Department Care Team (Late st Contact Info) Description 04/25/2024 11:00 AM PACKAGING CLERK Appointment [facility] [address] [place] [address] [place] [address] Ti Bonilla MD [address] [place] [phone] 05/23/2024 3:30 PM PACKAGING CLERK Office Visit [facility] [facility] [address] [place] [address] Jyoti Escobar MD [address] [place] [phone] documented as of this encounter Visit Diagnoses Not on filedocumented in this encounter Additional Health Concerns Infection Onset Date Last Indicated Resolved Time MRSA Comment:Negative MRSA 05/201903/11/2017 03/11/2017 10/03/2019 10:08 AM CDT documented as of this encounter Care Teams Staff Reporter Relationship Specialty Start Date End Date Mercedes, Vernon A, MD [address] [place] [phone] PCP - General FAMILY PRACTICE 10/27/15 12/02/21 Stanislaw Rhodes MD [address] [place] [phone] CARDIOVASCULAR DISEASE 10/27/15 10/24/18 Evaristo Allan MD [address] [place] [phone] [employer] Registrar CARDIOVASCULAR DISEASE 08/19/16 Raul Santana MD [address] [place] [phone] CLINICAL CARDIAC ELECTROPHYSIOLOGY 06/16/17 Myah Handley LEATHER STRETCHER [address] [place] [phone] CARDIOVASCULAR DISEASE 06/16/17 07/10/19 documented as of this encounter
--- OUTSIDE RECORDS SUMMARY | 2024-04-23 04:31 | XMS_ITS | Encounter Summary ---
Author Organization [facility] Address [address] [place] [address]. [place] [address] [place] [address] Care Team Providers Care Shoemaking Finisher Name Role Phone Vernon Mercedes MD Primary Care Provider [phone] Stanislaw Rhodes MD Unavailable Unavailab le Reason for Referral * Consultation/Treatment (Routine) - Closed Specialty Diagnoses / Procedures Referred By Charito ledbetter Referred To Contact CARDIOLOGY Diagnoses Chest pain Procedures NM EXER NUC STRESS TEST 1DAY Stanislaw Rhodes MD [address] [place] [address] Referral ID Status Reason Start Date Expiration Date Visits Re quested Visits Authorized [id number] Closed 10/30/2015 11/28/2015 1 1 Encounter Details Date Type Department Care Team (Late st Contact Info) Description 10/30/2015 Orders Only [facility] [address] [place] [address] Stanislaw Rhodes MD Social History Tobacco Use [...] 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 Not on file documented as of this encounter Plan of Treatment Upcoming Encounters Date Type Department Care Team (Late st Contact Info) Description 04/25/2024 11:00 AM CUTLET MAKER PORK Appointment [facility] [address] [place] [address] Ti Bonilla MD [address] [place] [phone] 05/23/2024 3:30 PM CUTLET MAKER PORK Office Visit [facility] [address] [place] [address] Jyoti Escobar MD [address] [place] [address] documented as of this encounter Procedures Procedure Name Priority Date/Time Associated Diagnosis Comments NM EXER NUC STRESS TEST 1 DAY W TRACING Routine 02/28/2018 2:48 PM CUTLET MAKER PORK Chest pain documented in this encounter Results * NM EXER NUC STRESS TEST 1DAY (02/28/2018 2:48 PM CUTLET MAKER PORK) Anatomical Region Laterality Modality Cardiac Nuclear Medicine us Stanislaw Rhodes MD NUC MED Edited Res ult - Final documented in this encounter Visit Diagnoses Diagnosis Chest pain- Primary Chest pain, unspecified documented in this encounter Care Teams Shoemaking Finisher Relationship Specialty Start Date End Date Vernon Mercedes MD [address] [place] [phone] PCP - General FAMILY PRACTICE 10/27/15 12/02/21 Stanislaw Rhodes MD [address] [place] [address] CARDIOVASCULAR DISEASE 10/27/15 10/24/18 documented as of this encounter
--- OUTSIDE RECORDS SUMMARY | 2024-04-23 04:31 | XMS_ITS | Encounter Summary ---
Author Organization [facility] Address [address] [place] [address]. 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 [place] [address] Ti Bonilla MD [address] [place] [phone] 05/23/2024 3:30 PM BIOMED TECH Office Visit [facility] [address] Jyoti Escobar MD [address] [place] [address] documented as of this encounter Visit Diagnoses Not on filedocumented in this encounter Care Teams Software Quality Assurance Specialist Relationship Specialty Start Date End Date Vernon Mercedes MD [address] [place] [phone] PCP - General FAMILY PRACTICE 10/27/15 12/02/21 Stanislaw Rhodes MD [address] [place] [address] CARDIOVASCULAR DISEASE 10/27/15 10/24/18 documented as of this encounter
--- OUTSIDE RECORDS SUMMARY | 2024-04-23 04:31 | XMS_ITS | Encounter Summary ---
Author Organization [facility] Address [address] [place] [address]. [place], [place] [address] [place], [place] [id number] Care Team Providers Care Locomotive Engineer Name Role Phone Vernon Mercedes MD Primary Care Provider Stanislaw Rhodes MD Unavailable Unavailab Elza Ying MD Unavailable UnavailRaul Suresh MD Unavailable Unavailabl Myah Gee NP Unavailable Unavailable Encounter Details Date Type Department Care Team (Late st Contact Info) Description 12/06/2014 Abstract [facility] [address] [place] [phone] Danny Blackwell MD [address] [place] [address] Social History Tobacco Use Types Packs/Day Years Used Date Smoking Tobacco: Never Assessed Sex and Gender Information Value Date Recorded Sex Assigned at Not on file Legal Sex Male 10:30 AM CDT Gender Identity Not on file Sexual Orientation Not on file documented as of this encounter Procedure Notes * Danny Blackwell MD - 12/06/2014 7:01 PM CDT [address] [address] Patient: ELZA MCKEON [facility] Rec#: [id number] Birthdate: 1960 Admit/Svce Date: 12/06/2014 Disch Date: 12/10/2014 Attending Md: DANNY BLACKWELL MD (TRACY) OPERATIVE REPORT PATIENT: Elza Mckeon : 1960 MR #: [id number] Surgery Date: 12/06/2014 Chart Document DATE: 12/06/2014 Preoperative Diagnosis: End-stage left knee osteoarthritis. Postoperative Diagnosis: End-stage left knee osteoarthritis. Procedure: Left total knee arthroplasty using a DePuy Attune size 6 posterior stabilized femur, size 6 tibia, a 4 mm rotating platform spacer, and 38 mm patella button. SURGEON: Danny Blackwell III, MD Anesthesia: Spinal with IV sedation. Indication: Elza Mckeon is a 54-year-old male with functional disability because of end-stage osteoarthritis of his left knee. He has failed to see sustained relief with conservative measures and presents for the above procedure after reviewing risks and benefits. Intraoperative Findings: After the knee was exposed, full-thickness cartilage loss was present in the medial compartment with large osteophytes and eburnated bone consistent with end-stage osteoarthritis. Tourniquet Time: Approximately 85 minutes. Estimated Blood Loss: 300 mL. Description of Procedure: After regional block was performed in the holding area by the anesthesiologist upon my request, anticipating severe postoperative pain, the patient was taken to the operating room, where she was positioned in the supine fashion after administration of anesthesia. Tranexamic acid was given intravenously along with antibiotics. The tourniquet was applied to the proximal thigh, and the lower extremity was prepped and draped in the usual sterile fashion. An Esmarch wrap was used to exsanguinate the lower extremity and the tourniquet inflated to 300 mmHg. A midline incision with a paramedian arthrotomy was used for exposure. The patella was everted, and the fat pad sharply excised. Appropriate soft tissue releases were performed, and osteophytes resected. The step drill was used to access the intramedullary canal of the femur, and the IM guide inserted. The distal femoral resection guide was pinned in place, and the oscillating saw used to resect the distal femur. The sizing guide was then positioned, and the pins inserted, using 3 degrees of external rotation. The 4-in-1 cutting block was then positioned and pinned, and the oscillating saw was used to resect the distal femoral cuts after confirming appropriate positioning. The notch guide was then positioned, and the notch resected. We then turned our attention to the proximal tibia, and the extramedullary alignment guide was positioned. The 210 depth gauge was used to determine appropriate depth of resection, and alignment was carefully evaluated. The tibial resection guide was pinned, and the oscillating saw used to resect the proximal tibia articular surface. The soft tissue attachments were released, and both menisci were resected. Posterior osteophytes on the femoral condyles were then resected. We trialed the tibial tray and determined the appropriate size. Trial components were inserted, and I was pleased with the soft tissue balance. The patella was prepared by using a caliper to measure the patellar thickness and then resecting the appropriate amount of patella articular surface. Good patella tracking was appreciated. The tibia was then prepared, pinning the tibial tray and reaming and broaching. The cancellous surfaces were copiously irrigated while cement was mixed on the back table. At the appropriate time, the cement was injected into the cancellous surfaces, and the components impacted, with removal of excess cement. The knee was placed in extension with a spacer, and the patella cancellous surface injected with cement and the final patella component clamped. When the cement was hardened, the clamp was removed, and the tourniquet released at 58 minutes. Electrocautery was used to obtain hemostasis, and the wounds were copiously irrigated. We determined the appropriate thickness of the spacer, and this was subsequently inserted. The knee was again copiously irrigated, and the extensor mechanism approximated using #1 Vicryl, which was also used to close space, 2-0 Vicryl was used to close subcutaneous tissue, while skin melanie completed the skin closure. Sterile dressings were applied and overwrapped with Webril. The drapes then withdrawn, and the polar pad applied. This was overwrapped with an James wrap. The patient was then transferred to her stretcher, then to the PACU. Estimated blood loss was 300 mL, and sponge and needle counts were correct x2 following the procedure. BLAYNE/kirsten [id number] P P [id number] cc: MD Danny Caballero MD Carl Painter, MD CP/[facility] [id number] E-Signed By P Danny Blackwell MD 12/17/2014 01:54 P P [id number] cc: MD Danny Caballero MD Carl Painter, MD documented in this encounter Plan of Treatment Upcoming Encounters Date Type Department Care Team (Late st Contact Info) Description 04/25/2024 11:00 AM REPATCHER Appointment [facility] [address] [place] [address] Ti Bonilla MD [address] [place] [phone] 05/23/2024 3:30 PM REPATCHER Office Visit [facility] [address] [place] [phone] Jyoti Escobar MD [address] [place] [address] documented as of this encounter Visit Diagnoses Not on filedocumented in this encounter Additional Health Concerns Infection Onset Date Last Indicated Resolved Time MRSA Comment:Negative MRSA 05/201903/11/2017 03/11/2017 10/03/2019 10:08 AM CDT documented as of this encounter Care Teams Locomotive Engineer Relationship Specialty Start Date End Date Vernon Mercedes MD [facility] [place] [phone] PCP - General FAMILY PRACTICE 10/27/15 12/02/21 Stanislaw Rhodes MD [address] [place] [address] [phone] CARDIOVASCULAR DISEASE 10/27/15 10/24/18 Elza Allan MD [address] [place] [phone] [employer] CARDIOVASCULAR DISEASE 08/19/16 Raul Santana MD [address] [place] [phone] CLINICAL CARDIAC ELECTROPHYSIOLOGY 06/16/17 Myah Handley BACTERIOLOGIST FISHERY [address] [place] [address] [place] [phone] CARDIOVASCULAR DISEASE 06/16/17 07/10/19 documented as of this encounter
--- OUTSIDE RECORDS SUMMARY | 2024-04-23 04:31 | XMS_ITS | Encounter Summary ---
Author Organization [facility] Address [address] [place] [address]. 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 [place] [address] Ti Bonilla MD [address] [place] [phone] 05/23/2024 3:30 PM STITCHING MACHINE FEEDER OR OFFBEARER Office Visit [facility] [phone] Jyoti Escobar MD [address] [place] [address] documented as of this encounter Procedures Procedure Name Priority Date/Time Associated Diagnosis Comments TYPE & SCREEN NOW 05/19/2016 10:05 AM STITCHING MACHINE FEEDER OR OFFBEARER PARTIAL THROMBOPLASTIN TIME,PTT NOW 05/19/2016 10:05 AM STITCHING MACHINE FEEDER OR OFFBEARER PROTHROMBIN TIME, VENOUS NOW 05/19/2016 10:05 AM STITCHING MACHINE FEEDER OR OFFBEARER BASIC METABOLIC PANEL NOW 05/19/2016 10:05 AM STITCHING MACHINE FEEDER OR OFFBEARER CBC W/DIFF AUTOMATED NOW 05/19/2016 10:05 AM STITCHING MACHINE FEEDER OR OFFBEARER MAGNESIUM NOW 05/19/2016 10:05 AM STITCHING MACHINE FEEDER OR OFFBEARER PLASMA, FRESH FROZEN Routine 05/19/2016 8:55 AM STITCHING MACHINE FEEDER OR OFFBEARER documented in this encounter Results * MAGNESIUM (05/19/2016 10:05 AM STITCHING MACHINE FEEDER OR OFFBEARER) MAGNESIUM 1.7 1.6 - 2.6 MG/DL 05/19/2016 10:51 AM STITCHING MACHINE FEEDER OR OFFBEARER [facility] SERUM OR PLASMA SPECIMEN / Unknown 05/19/2016 10:05 AM STITCHING MACHINE FEEDER OR OFFBEARER 05/19/2016 10:17 AM STITCHING MACHINE FEEDER OR OFFBEARER us Generic Conversion Md [facility] Final R esult [facility] [place] [address], [id number] * (ABNORMAL) BASIC METABOLIC PANEL (05/19/2016 10:05 AM STITCHING MACHINE FEEDER OR OFFBEARER) SODIUM S/P/B 134(L) 135 - 147 MMOL/L 05/19/2016 10:51 AM STITCHING MACHINE FEEDER OR OFFBEARER [facility] POTASSIUM S/P/B 4.4 3.5 - 5.0 MMOL/L 05/19/2016 10:51 AM [facility] CHLORIDE S/P/B 102 98 - 107 MMOL/L 05/19/2016 10:51 AM [facility] CO2 23.5 22 - 29 MMOL/L 05/19/2016 10:51 AM [facility] GLUCOSE 243(H) 70 - 109 MG/DL 05/19/2016 10:51 AM [facility] BUN 17 8 - 26 MG/DL 05/19/2016 10:51 AM [facility] CREATININE S/P/B 0.85 0.70 - 1.30 MG/DL 05/19/2016 10:51 AM [facility] CALCIUM S/P/B 9.7 8.4 - 10.2 MG/DL 05/19/2016 10:51 AM [facility] EGFR NON-AFR. AMER. 93 >60 ML/MIN/1.7 3 M2 05/19/2016 10:51 AM [facility] EGFR AFR. AMER. 113 >60 ML/MIN/1.7 3 M2 05/19/2016 10:51 AM [facility] ANION GAP 8.5 MMOL/L 05/19/2016 10:51 AM [facility] OSMOLALITY (CALC) 278 MOSM/KG 05/19/2016 10:51 AM [facility] PLASMA SPECIMEN / Unknown 05/19/2016 10:05 AM STITCHING MACHINE FEEDER OR OFFBEARER 05/19/2016 10:17 AM [facility] us Generic Conversion Md [facility] Final R esult [facility] [place] [address], [id number] * (ABNORMAL) PARTIAL THROMBOPLASTIN TIME,PTT (05/19/2016 10:05 AM STITCHING MACHINE FEEDER OR OFFBEARER) PTT 36.5(H) 22.0 - 35.0 SEC 05/19/2016 10:33 AM [facility] PLASMA SPECIMEN / Unknown 05/19/2016 10:05 AM STITCHING MACHINE FEEDER OR OFFBEARER 05/19/2016 10:17 AM STITCHING MACHINE FEEDER OR OFFBEARER Generic Conversion Md [facility] Performing Organization Address [facility]/ZIP Co de Phone Number [facility] [address] [place] [address], [id number] * (ABNORMAL) PROTIME/INR, VENOUS (05/19/2016 10:05 AM STITCHING MACHINE FEEDER OR OFFBEARER) PROTIME 14.9(H) 11.6 - 14.3 SEC 05/19/2016 10:33 AM [facility] INR 1.1 0.9 - 1.1 05/19/2016 10:33 AM [facility] 05/19/2016 10:0 5 AM STITCHING MACHINE FEEDER OR OFFBEARER 05/19/2016 10:17 AM STITCHING MACHINE FEEDER OR OFFBEARER us Generic Conversion Md [facility] Performing Organization Address [facility] de Phone Number [facility] [address] [place] [address], [id number] * (ABNORMAL) CBC W/DIFF AUTOMATED (05/19/2016 10:05 AM STITCHING MACHINE FEEDER OR OFFBEARER) WBC 6.9 4.0 - 10.8 x10'3/uL 05/19/2016 10:22 AM [facility] RBC 4.55 4.50 - 6.10 x10'6/uL 05/19/2016 10:22 AM [facility] HGB 12.6(L) 13.0 - 18.0 G/DL 05/19/2016 10:22 AM [facility] HCT 37.6 37.0 - 52.0 % 05/19/2016 10:22 AM [facility] MCV 82.6 78.0 - 100.0 FL 05/19/2016 10:22 AM [facility] MCH 27.7 27.0 - 31.0 PG 05/19/2016 10:22 AM [facility] MCHC 33.5 33.0 - 36.0 G/DL 05/19/2016 10:22 AM [facility] RDW 15.0(H) 11.5 - 14.5 % 05/19/2016 10:22 AM [facility] PLT 245 150 - 350 x10'3/uL 05/19/2016 10:22 AM [facility] MPV 12.2(H) 7.4 - 10.4 FL 05/19/2016 10:22 AM [facility] ABS. NEUTROPHILS TOTAL 4.35 1.60 - 8.30 x10'3/uL 05/19/2016 10:22 AM [facility] ABS. LYMPHOCYTES 1.61 0.80 - 4.70 x10'3/uL 05/19/2016 10:22 AM [facility] ABS. MONOCYTES 0.79 0.00 - 1.50 x10'3/uL 05/19/2016 10:22 AM [facility] ABS. EOSINOPHILS 0.09 0.00 - 0.40 x10'3/uL 05/19/2016 10:22 AM [facility] ABS. BASOPHILS 0.06 0.00 - 0.20 x10'3/uL 05/19/2016 10:22 AM [facility] ABS. IMMATURE GRANULOCYTES 0.04(H) 0.00 - 0.03 x10'3/uL 05/19/2016 10:22 AM [facility] ABS. NUCLEATED RBC'S 0.00 0.0 x10'3/uL 05/19/2016 10:22 AM [facility] PLASMA SPECIMEN / Unknown 05/19/2016 10:05 AM STITCHING MACHINE FEEDER OR OFFBEARER 05/19/2016 10:17 AM STITCHING MACHINE FEEDER OR OFFBEARER us Stephani Aiken Md, MD LABORATORY Final R esult Performing Organization Address [facility] Co de Phone Number [facility] [address] [place] [address], [place] [phone] * TYPE & SCREEN (05/19/2016 10:05 AM STITCHING MACHINE FEEDER OR OFFBEARER) UNITS ORDERED 4 [facility] ABO/RH B POSITIVE [facility] SAMPLE EXPIRATION 05/22/2016 [facility] ANTIBODY SCREEN NEGATIVE [facility] 05/19/2016 10:0 5 AM STITCHING MACHINE FEEDER OR OFFBEARER 05/19/2016 10:16 AM STITCHING MACHINE FEEDER OR OFFBEARER us Raul Santana MD BLOOD BANK TEST ORDERABLES Edited Result - Final Performing Organization Address [facility] de Phone Number [facility] [address] [place] [address], [place] [phone] * PLASMA, FRESH FROZEN (05/19/2016 8:55 AM STITCHING MACHINE FEEDER OR OFFBEARER) UNITS ORDERED 4 [facility] 05/19/2016 8:55 AM STITCHING MACHINE FEEDER OR OFFBEARER 05/19/2016 11:00 AM STITCHING MACHINE FEEDER OR OFFBEARER us Raul Santana MD LABORATORY Final Resul t Performing Organization Address [facility] de Phone Number [facility] [address] [place] [address], [place] [phone] documented in this encounter Visit Diagnoses Not on filedocumented in this encounter Care Teams Reception Interviewer Relationship Specialty [place] [address] [place], [place] [address] [address] PCP - General FAMILY PRACTICE 10/27/15 12/02/21 Stanislaw Rhodes MD [address] [facility] [place] [address] CARDIOVASCULAR DISEASE 10/27/15 10/24/18 documented as of this encounter
--- OUTSIDE RECORDS SUMMARY | 2024-04-23 04:31 | XMS_ITS | Encounter Summary ---
Author Organization [facility] Address [address] [place] [address]. 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 [address] [place] [address] Ti Bonilla MD [address] [place] [phone] 05/23/2024 3:30 PM RADIO DISPATCHER Office Visit [facility] [address] [place] [phone] Jyoti Escobar MD [address] [place] [address] documented as of this encounter Visit Diagnoses Not on filedocumented in this encounter Care Teams Film Color Tester Relationship Specialty Start Date End Date Vernon Mercedes MD [address] [place] [address] PCP - General FAMILY PRACTICE 10/27/15 12/02/21 Stanislaw Rhodes MD [address] [place] [address] CARDIOVASCULAR DISEASE 10/27/15 10/24/18 documented as of this encounter
--- OUTSIDE RECORDS SUMMARY | 2024-04-23 04:31 | XMS_ITS | Encounter Summary ---
Author Organization [facility] Address [address] [place] [address]. 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 [address] [place] [address] [place] [address] Ti Bonilla MD [address] [place] [phone] 05/23/2024 3:30 PM GROOVER OPERATOR Office Visit [facility] [address] [place] [address] Jyoti Escobar MD [address] [place] [address] documented as of this encounter Visit Diagnoses Diagnosis Atrial fibrillation (CMS/HCC HHS/HCC) Atrial fibrillation documented in this encounter Additional Health Concerns Infection Onset Date Last Indicated Resolved Time MRSA Comment:Negative MRSA 05/201903/11/2017 03/11/2017 10/03/2019 10:08 AM CDT documented as of this encounter Care Teams Supervisor Properties Relationship Specialty Start Date End Date Vernon Mercedes MD [address] [place] [phone] PCP - General FAMILY PRACTICE 10/27/15 12/02/21 [place] [address] CARDIOVASCULAR DISEASE 10/27/15 10/24/18 [place] [address] [facility] Assistant Professor Of Life Sciences CARDIOVASCULAR DISEASE 08/19/16 documented as of this encounter
--- OUTSIDE RECORDS SUMMARY | 2024-04-23 04:31 | XMS_ITS | Encounter Summary ---
Author Organization [facility] Address [address] [place] [address]. 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 Not on file Not on file documented as of this encounter Progress Notes * Eve Carrera MD - 05/21/2016 8:32 AM CST DATE: 05/21/16 @ 0602 [facility] LIVE PAGE 1 USER: [email or web address] Medication Reconciliation PHYNRXRI DISCHARGE MEDICATION INSTRUCTIONS MCKEONELZA Location: [facility] BMI: 41.6 MR#: [id number] Service Date: 05/19/16 : 1960 M Weight: 127.374477 kg Height: 175.00 cm Allergies: doxycycline Adverse: Attending Dr: DEANDRE,EVE Reyes MD Medication Dose Route Schedule Instructions/Indications Copy given to Patient Note: It is important to keep an updated list of all prescription and over the counter medications you take. ALWAYS share this list with all the Doctors you see and review this list with your pharmacist each time you have a prescription filled Medications, Herbals, and Supplements Last Taken HOME MED ATORVASTATIN 40 MG 05/19/16 8:00am (LIPITOR) 40 MG ORAL DAILY cholesterol HOME MED DABIGATRAN ETEXILATE MESYLATE 150 MG 05/19/16 8:00am (PRADAXA) 150 MG ORAL TWICE A DAY help prevent stroke and blood clots HOME MED DILTIAZEM ER 120 MG 05/19/16 8:00am (DILTIAZEM ER) 120 MG ORAL DAILY HOME MED INSULIN DETEMIR 100 U/ML VIAL 10 UNITS (LEVEMIR) 10 UNITS SUBCUTANEOUSLY BEDTIME NEEDED for HYPOGLYCEMIA Patient Had Anti-Coagulant in the Past 72 Hours CONTINUED ON NEXT PAGE ACCESS ID: DATE: 05/21/16 @ 0602 [facility] PAGE 2 USER: [email or web address] Medication Reconciliation [facility]NRXRI [facility]CHARGE [facility] BMI: 41.6 MR#: [id number] Service Date: 05/19/16 : 1960 M Weight: 127.400642 kg Height: 175.00 cm Allergies: doxycycline Adverse: Attending Dr: EVE CARRERA MD Medications, Herbals, and Supplements Last Taken Medication Dose Route Schedule Instructions/Indications HOME MED INSULIN HUMAN LISPRO 5 UNITS 05/19/16 8:00am (HUMALOG) 5 UNITS SUBCUTANEOUSLY 3 TIMES A DAY HOME MED METFORMIN 850 MG 05/19/16 8:00am (GLUCOPHAGE) 850 MG ORAL TWICE DAILY WITH MEALS diabetic HOME MED METOPROLOL SUCCINATE XL 50 MG 05/19/16 8:00am (TOPROL XL) 50 MG ORAL DAILY blood pressure - heart HOME MED OXYBUTYNIN CHLORIDE 5 MG 05/19/16 8:00am (OXYBUTYNIN CHLORIDE ER) 5 MG ORAL DAILY overactive bladder Patient Had Anti-Coagulant in the Past 72 Hours CONTINUED ON NEXT PAGE ACCESS ID: DATE: 05/21/16 @ 0602 [facility] PAGE 3 USER: [email or web address] Medication Reconciliation PHYNRXRI DISCHARGE MEDICATION [facility] ELZA MCKEON Location: [facility] BMI: 41.6 MR#: [id number] Service Date: 05/19/16 : 1960 M Weight: 127.949870 kg Height: 175.00 cm Allergies: doxycycline Adverse: Attending Dr: EVE CARRERA MD Medications, Herbals, and Supplements Last Taken Medication Dose Route Schedule Instructions/Indications HOME MED RANITIDINE TAB 150 MG 05/19/16 8:00am (ACID VACUUM COOKER OPERATOR) 150 MG ORAL TWICE A DAY stomach HOME MED SPIRONOLACTONE 25 MG 05/19/16 8:00am (ALDACTONE) 25 MG ORAL ONCE DAILY WITH MEAL blood pressure - water pill HOME MED TAMSULOSIN 0.4 MG 05/19/16 8:00am (FLOMAX) 0.4 MG ORAL ONCE DAILY AFTER BREAKFAST approximately 30 minutes after same meal each day prostate HOME MED TRAMADOL HCL 50 MG 05/19/16 8:00am (ULTRAM) 50 MG ORAL EVERY 6 HOURS pain Patient Had Anti-Coagulant in the Past 72 Hours CONTINUED ON NEXT PAGE ACCESS ID: DATE: 05/21/16 @ 0602 [facility] PAGE 4 USER: [email or web address] Medication Reconciliation PHYNRXRI DISCHARGE MEDICATION INSTRUCTIONS ELZA MCKEON Location: [facility] BMI: 41.6 MR#: [id number] Service Date: 05/19/16 : 1960 M Weight: 127.024975 kg Height: 175.00 cm Allergies: doxycycline Adverse: Attending Dr: DEANDRE,EVE Reyes MD Medication Dose Route Schedule Instructions/Indications Note to the next provider of care: If you need clarification about the list of medications please contact the discharging physician. If you need clarification regarding the discharge physician you may contact the HIM department at the hospital. Patient Had Anti-Coagulant in the Past 72 Hours END OF REPORT R RELATIONS REPRESENTATIVE documented in this encounter Plan of Treatment Upcoming Encounters Date Type Department Care Team (Late st Contact Info) Description 04/25/2024 11:00 AM LABOR RELATIONS REPRESENTATIVE Appointment [facility] [address] [place] [address] Ti Bonilla MD [address] [place] [phone] 05/23/2024 3:30 PM LABOR RELATIONS REPRESENTATIVE Office Visit [facility] [address] [place] [phone] Jyoti Escobar MD [address] [place] [phone] documented as of this encounter Visit Diagnoses Not on filedocumented in this encounter Care Teams Parts Product Analyst Relationship Specialty Start Date End Date Vernon Mercedes MD [address] [place] [phone] PCP - General FAMILY PRACTICE 10/27/15 12/02/21 Stanislaw Rhodes MD [address] [place] [address] CARDIOVASCULAR DISEASE 10/27/15 10/24/18 documented as of this encounter
--- OUTSIDE RECORDS SUMMARY | 2024-04-23 04:31 | XMS_ITS | Encounter Summary ---
Author Organization [facility] Address [address] [place] [address]. [place], [place] [address] [place] [address] Care Team Providers Care Shingle Trimmer Name Role Phone Vernon Mercedes MD Primary Care Provider [phone] Stanislaw Rhodes MD Unavailable Unavailab Evaristo Ying MD Unavailable Unavailabl e Encounter Details Date Type Department Care Team (Late st Contact Info) Description 05/20/2016 SUPERINTENDENT LANDFILL OPERATIONS ONLY [facility] [address] [place] [address] Scanned, Documents Social History Tobacco [...] st Contact Info) Description 04/25/2024 11:00 AM [address]ER App[address] [facility] [place] [address] Ti Bonilla MD [address] [place] [phone] 05/23/2024 3:30 PM RAISE DRILLER Office Visit [facility] [address] [place] [phone] Jyoti Escobar MD [address] [place] [address] documented as of this encounter Visit Diagnoses Not on filedocumented in this encounter Care Teams Shingle Trimmer Relationship Specialty Start Date End Date Vernon Mercedes MD [address] [place] [address] PCP - General FAMILY PRACTICE 10/27/15 12/02/21 Stanislaw Rhodes MD [address] [place] [address] CARDIOVASCULAR DISEASE 10/27/15 10/24/18 Evaristo Allan MD [address] [place] [address] [facility] CARDIOVASCULAR DISEASE 08/19/16 documented as of this encounter
--- OUTSIDE RECORDS SUMMARY | 2024-04-23 04:31 | XMS_ITS | Encounter Summary ---
Author Organization [facility] Address [address] [place] [address]. [place], [place] [address] [place] [address] Care Team Providers Care Marine Equipment Research Engineer Name Role Phone Vernon Mercedes MD Primary Care Provider [phone] Stanislaw Rhodes MD Unavailable Unavailab Evaristo Ying MD Unavailable UnavailRaul Suresh MD Unavailable UnavailMyah Elena NP Unavailable Unavailable Deven Cleary MD Unavailable Unavailable Encounter Details Date Type Department Care Team (Late Contact Info) Description 09/19/2014 Abstract [facility] Diagnostic Imaging [address] [place] [address] Danny Blackwell MD [address] [place], [place] [phone] Social History Tobacco Use Types Packs/Day Years [...] (Late Contact Info) Description 04/25/2024 11:00 AM RESIDENTIAL REAL ESTATE AGENT Appointment [facility] [address] [place] [address] Ti Bonilla MD [address] [place] [phone] 05/23/2024 3:30 PM RESIDENTIAL REAL ESTATE AGENT [facility] [address] [place] [address] Jyoti Escobar MD [address] [place] [address] documented as of this encounter Visit Diagnoses Diagnosis Encounter for other specified aftercare documented in this encounter Additional Health Concerns Infection Onset Date Last Indicated Resolved Time MRSA Comment:Negative MRSA 05/201903/11/2017 03/11/2017 10/03/2019 10:08 AM CDT documented as of this encounter Care Teams Marine Equipment Research Engineer Relationship Specialty Start Date End Date Vernon Mercedes MD [address] [place] [address] PCP - General FAMILY PRACTICE 10/27/15 12/02/21 [place] [address] CARDIOVASCULAR DISEASE 10/27/15 10/24/18 [place] [address] [employer] Room Service Supervisor CARDIOVASCULAR DISEASE 08/19/16 [place] [address] CLINICAL CARDIAC ELECTROPHYSIOLOGY 06/16/17 Myah Handley, L[place] [phone] CARDIOVASCULAR DISEASE 06/16/17 07/10/19 [place] [address] Lace Tearing Supervisor INTERVENTIONAL CARDIOLOGY 03/21/18 10/24/18 documented as of this encounter
--- OUTSIDE RECORDS SUMMARY | 2024-04-23 04:31 | XMS_ITS | Encounter Summary ---
Author Organization [facility] Address [address] [place] [address]. [place], [place] [address] [place], [place] [id number] Care Team Providers Care Disbursing Agent Name Role Phone Vernon Mercedes MD Primary Care Provider [phone] Stanislaw Rhodes MD Unavailable Unavailab Elza Ying MD Unavailable UnavailRaul Suresh MD Unavailable Unavailabl Myha Gee NP Unavailable Unavailable Encounter Details Date Type Department Care Team (Late st Contact Info) Description 01/21/2015 Abstract [facility] [address] [place] [address] Danny Steiner MD [address] [place], [place] [phone] Social History Tobacco Use Types Packs/Day Years Used Date Smoking Tobacco: Never Assessed Sex and Gender Information Value Date Recorded Sex Assigned at Not on file Legal Sex Male 10:30 AM CDT Gender Identity Not on file Sexual Orientation Not on file documented as of this encounter Progress Notes * Danny Steiner MD - 01/21/2015 8:45 AM CDT Post-Op Elza Mckeon is status post total knee arthroplasty of the left knee on 12/06/2014. 6 weeks post op. Patient reports he has no pain. He reports achiness only. He states his preoperative symptoms are much improved. He doesn't walk with a limp. HPI: The patient reports no excessive pain and no swelling. The patient also reports weight-bearingas tolerated, but not using an assistive device for ambulation. PE: The surgical incision site was clean, dry and intact (the incision site was intact and had no drainage ). The surrounding skin findings included normal appearance. The knee demonstrates no warmth, no erythema and no swelling . No redness. 0 - 130. Tests for DVT and compartment syndrome reveal no calf swelling and no calf tenderness. Peripheral neurovascular exam reveals intact sensation to light touch and intact gross motor function. Assessment: Post-op, the patient is doing well, has excellent pain control and is showing no signs of infection. Plan: Activity Restrictions: advance as tolerated and Patient has finished PT and wants to return to work. Done this visit: xray . XRAYS today reveals attune knee well aligned. HEP. Follow up: 6 weeks. Orders 1. From Hydrocodone-Acetaminophen 7.5-325 MG Oral Tablet To Hydrocodone-Acetaminophen 7.5-325 MG Oral Tablet TAKE 1 TABLET EVERY 6 HOURS NEEDED 2. From Hydrocodone-Acetaminophen 7.5-325 MG Oral Tablet 1- 2 Q 4 - 6 HRS PRN PAIN To Hydrocodone-Acetaminophen 7.5-325 MG Oral Tablet (Gilbert) 1 q 6 hrs prn pain 3. XR Knee 1 to 2 View Lt; Status:Active; Requested for:[id number]; 4. XR Knee Standing Bi; Status:Active; Requested for:[id number]; Assessment 1. Aftercare following knee joint replacement surgery (V54.81,V43.65) (Z47.1,Z96.659) '''School / Work Excuse''' Return to School - Work: Elza Mckeon may return to work on 01/21/2015. Elza can return without limitations. Signatures Electronically signed by : Kaylyn Grimes, ; Jan 21 2015 9:16AM SPINNER HAND (Author) Electronically signed by : Danny Steiner M.D.; Jan 21 2015 9:18AM SPINNER HAND (Author) documented in this encounter Plan of Treatment Upcoming Encounters Date Type Department Care Team (Late st Contact Info) Description 04/25/2024 11:[address] [facility] [place] [address] Ti Bonilla MD [address] [place] [address] 05/23/2024 3:30 PM SPINNER HAND Office Visit [facility] [place] [address] Jyoti Escobar MD [address] [place] [address] documented as of this encounter Procedures Procedure Name Priority Date/Time Associated Diagnosis Comments SURG XR KNEE LT 1-2V Routine 01/21/2015 3:13 PM CDT XR KNEE STAND AP VANITA ONLY Routine 01/21/2015 3:13 PM CDT documented in this encounter Results * XR KNEE STAND AP VANITA ONLY (01/21/2015 3:13 PM CDT) Anatomical Region Laterality Modality Knee Radiographic Shannan ging 01/21/2015 3:13 PM CDT 01/21/2015 3:13 PM CDT Narrative 01/21/2015 3:18 PM CDT [facility] ?? [address] [place] [address] ?? [place], [place] ? Patient Name: ELZA MCKEON Date of : 1960 ?? Med Rec #: [id number] ??Age/Sex: 55/M ?Pt. Location: ORTHO ?? Attending Provider: DANNY STEINER MD (TRACY) ?? Ordering Provider: DANNY STEINER MD (TRACY) ? Study Date Order Number Procedure ?? 01/21/15 [id number] XR Knee Standing Bi ? Signed ? Date: 01/21/2015. ? Exam: Standing bilateral knees, left knee radiography. ? Comparison: Standing bilateral knees and left knee radiography dated 11/26/2014. ? Technique: Standing frontal view of the bilateral knees. Lateral and sunrise view of the left ?? knee. ? History: Follow-up left knee replacement. ? Findings: ? Right knee: There is a right knee arthroplasty present unchanged compared to the prior exam. ?? There is a stable calcification medial to the proximal right tibia and ? Left knee: There has been interval placement of a left total knee arthroplasty. The knee ?? arthroplasty appears well seated without definite complication. There is a small suprapatellar ?? knee joint effusion. Patellar enthesophytes are noted. ? Impression: ?? 1. Unchanged right knee arthroplasty. ?? 2. Interval placement of a left total knee arthroplasty in good position. Small left knee ?? joint effusion. ? Electronically Signed By: MALIK MUNOZ MD 01/21/15 1517 ? Dictated On: 01/21/151512 ?? Interpreted By: MALIK MUNOZ MD ?? Transcribed On: 01/21/151512 - INFCE ?? Procedure Note Danny Steiner MD - 02/10/[address] Patient Name: ELZA MCKEON Date of : 1960 Med Rec #: [id number] Age/Sex: 55/M Pt. Location: ORTHO Attending Provider: DANNY STEINER MD (TRACY) Ordering Provider: DANNY STEINER MD (TRACY) Study Date Order Number Procedure 01/21/15 [id number] XR Knee Standing Bi Signed Date: 01/21/2015. Exam: Standing bilateral knees, left knee radiography. Comparison: Standing bilateral knees and left knee radiography dated11/26/2014. Technique: Standing frontal view of the bilateral knees. Lateral andsunrise view of the left knee. History: Follow-up left knee replacement. Findings: Right knee: There is a right knee arthroplasty present unchanged comparedto the prior exam. There is a stable calcification medial to the proximal right tibia and Left knee: There has been interval placement of a left total kneearthroplasty. The knee arthroplasty appears well seated without definite complication. There sreekanth small suprapatellar knee joint effusion. Patellar enthesophytes are noted. Impression: 1. Unchanged right knee arthroplasty. 2. Interval placement of a left total knee arthroplasty in good position.Small left knee joint effusion. Electronically Signed By: MALIK MUNOZ MD 01/21/151516 Dictated On: 01/21/151512 Interpreted By: MALIK MUNOZ MD Transcribed On: 01/21/15 1513 - INF[facility] us Danny Steiner MD GENERAL IMAGING Final Result * SURG XR KNEE LT 1-2V (01/21/2015 3:13 PM CDT) Anatomical Region Laterality Modality Knee IMAGES ONLY 01/21/2015 3:13 PM CDT 01/21/2015 3:13 PM CDT Narrative 01/21/2015 3:18 PM CDT [facility] ?? [facility] ?? [place], [place] ? Patient Name: ELZA MCKEON Date of : 1960 ?? Med Rec #: [id number] ??Age/Sex: 55/M ?Pt. Location: ORTHO ?? Attending Provider: DANNY STEINER MD (TRACY) ?? Ordering Provider: DANNY STEINER MD (TRACY) ? Study Date Order Number Procedure ?? 01/21/15 [id number] XR Knee Standing Bi ? Signed ? Date: 01/21/2015. ? Exam: Standing bilateral knees, left knee radiography. ? Comparison: Standing bilateral knees and left knee radiography dated 11/26/2014. ? Technique: Standing frontal view of the bilateral knees. Lateral and sunrise view of the left ?? knee. ? History: Follow-up left knee replacement. ? Findings: ? Right knee: There is a right knee arthroplasty present unchanged compared to the prior exam. ?? There is a stable calcification medial to the proximal right tibia and ? Left knee: There has been interval placement of a left total knee arthroplasty. The knee ?? arthroplasty appears well seated without definite complication. There is a small suprapatellar ?? knee joint effusion. Patellar enthesophytes are noted. ? Impression: ?? 1. Unchanged right knee arthroplasty. ?? 2. Interval placement of a left total knee arthroplasty in good position. Small left knee ?? joint effusion. ? Electronically Signed By: MALIK MUNOZ MD 01/21/151516 ? Dictated On: 01/21/151512 ?? Interpreted By: MALIK MUNOZ MD ?? Transcribed On: 01/21/151512 - INFCE ?? Procedure Note Stephani Luz MD - 02/08/[address] Patient Name: ELZA MCKEON Date of : 1960 Med Rec #: [id number] Age/Sex: 55/M Pt. Location: ORTHO Attending Provider: DANNY STEINER MD (TRACY) Ordering Provider: DANNY STEINER MD (TRACY) Study Date Order Number Procedure 01/21/15 [id number] XR Knee Standing Bi Signed Date: 01/21/2015. Exam: Standing bilateral knees, left knee radiography. Comparison: Standing bilateral knees and left knee radiography dated11/26/2014. Technique: Standing frontal view of the bilateral knees. Lateral andsunrise view of the left knee. History: Follow-up left knee replacement. Findings: Right knee: There is a right knee arthroplasty present unchanged comparedto the prior exam. There is a stable calcification medial to the proximal right tibia and Left knee: There has been interval placement of a left total kneearthroplasty. The knee arthroplasty appears well seated without definite complication. There sreekanth small suprapatellar knee joint effusion. Patellar enthesophytes are noted. Impression: 1. Unchanged right knee arthroplasty. 2. Interval placement of a left total knee arthroplasty in good position.Small left knee joint effusion. Electronically Signed By: MALIK MUNOZ MD 01/21/151516 Dictated On: 01/21/151512 Interpreted By: MALIK MUNOZ MD Transcribed On: 01/21/151512 - INF[facility] us Danny Steiner MD IMAGES ONLY Final Result documented in this encounter Visit Diagnoses Not on filedocumented in this encounter Additional Health Concerns Infection Onset Date Last Indicated Resolved Time MRSA Comment:Negative MRSA 05/201903/11/2017 03/11/2017 10/03/2019 10:08 AM CDT documented as of this encounter Care Teams Disbursing Agent Relationship Specialty Start Date End Date Vernon Mercedes MD [address] [place] [address] PCP - General FAMILY PRACTICE 10/27/15 12/02/21 Stan[place] [place] [address] CARDIOVASCULAR DISEASE 10/27/15 10/24/18 El[place] [address] [address] [place] System Safety Engineer CARDIOVASCULAR DISEASE 08/19/16 Raul [place] [address] [address] CLINICAL CARDIAC ELECTROPHYSIOLOGY 06/16/17 [place] [address] [address] CARDIOVASCULAR DISEASE 06/16/17 07/10/19 documented as of this encounter
--- OUTSIDE RECORDS SUMMARY | 2024-04-23 04:31 | XMS_ITS | Encounter Summary ---
Author Organization [facility] Address [address] [place] [address]. [place], [place] [address] [place] [address] Care Team Providers Care Director Of Education Name Role Phone Vernon Mercedes MD Primary Care Provider [phone] Stanislaw Rhodes MD Unavailable Unavailab Evaristo Ying MD Unavailable UnavailRaul Suresh MD Unavailable UnavailMyah Elena NP Unavailable Unavailable Deven Cleary MD Unavailable Unavailable Encounter Details Date Type Department Care Team (Late st Contact Info) Description 10/15/[address] [facility] [address] [place] [address] Vernon Mercedes MD [address] [place] [address] Social History Tobacco Use Types Packs/Day Years [...] (Late Contact Info) Description 04/25/2024 11:00 [address] [facility] [address] [place] [address] Ti Bonilla MD [address] [place] [address] 05/23/2024 3:30 PM HOSPITAL CORPSMAN Office Visit [facility] [address] [place] [address] Jyoti Escobar MD [address] [place] [address] documented as of this encounter Visit Diagnoses Diagnosis Atrial fibrillation ([facility]CC HHS/HCC) Atrial fibrillation documented in this encounter Additional Health Concerns Infection Onset Date Last Indicated Resolved Time MRSA Comment:Negative MRSA 05/201903/11/2017 03/11/2017 10/03/2019 10:08 AM CDT documented as of this encounter Care Teams Director Of Education Relationship Specialty Start Date End Date Vernon Mercedes MD [address] [place] [address] PCP - General FAMILY PRACTICE 10/27/15 12/02/21 [place] [address] CARDIOVASCULAR DISEASE 10/27/15 10/24/18 [place] [address] [place] Poultry Inseminator CARDIOVASCULAR DISEASE 08/19/16 [place] [address] CLINICAL CARDIAC ELECTROPHYSIOLOGY 06/16/17 [place] [address] CARDIOVASCULAR DISEASE 06/16/17 07/10/19 [place] [address] Manufacturing Group Leader INTERVENTIONAL CARDIOLOGY 03/21/18 10/24/18 documented as of this encounter
--- OUTSIDE RECORDS SUMMARY | 2024-04-23 04:31 | XMS_ITS | Encounter Summary ---
Author Organization [facility] Address [address] [place] [address]. 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 [place] [address] Ti Bonilla MD [address] [place] [address] 05/23/2024 3:30 PM PLASTER HELPER Office Visit [facility] [address] [place] [address] Jyoti Escobar MD [address] [place], [place] [address] documented as of this encounter Procedures Procedure Name Priority Date/Time Associated Diagnosis Comments POCT GLUCOSE - RAMOS DOCKED DEVICE Routine 05/19/2016 3:07 PM PLASTER HELPER documented in this encounter Results * (ABNORMAL) POCT glucose (05/19/2016 3:07 PM PLASTER HELPER) GLUCOSE POC 153(H) 70 - 109 05/19/2016 5:53 PM PLASTER HELPER [facility] ORDERS INTERFACE WHOLE BLOOD SPECIMEN / Unknown 05/19/2016 3:07 PM PLASTER HELPER 05/19/2016 5:53 PM PLASTER HELPER us Generic Conversion Md OSMAN POCT ORDERABLES - DEVIC E Final Result [facility] ORDERS INTERFACE US documented in this encounter Visit Diagnoses Not on filedocumented in this encounter Additional Health Concerns Infection Onset Date Last Indicated Resolved Time MRSA Comment:Negative MRSA 05/201903/11/2017 03/11/2017 10/03/2019 10:08 AM CDT documented as of this encounter Care Teams Deodorizer Operator Relationship Specialty Start Date End Date Vernon Mercedes MD [address] [place] [phone] PCP - General FAMILY PRACTICE 10/27/15 12/02/21 Stan[place] [place] [address] CARDIOVASCULAR DISEASE 10/27/15 10/24/18 [place] [address] [place] Pattern Shop Supervisor CARDIOVASCULAR DISEASE 08/19/16 documented as of this encounter
--- OUTSIDE RECORDS SUMMARY | 2024-04-23 04:31 | XMS_ITS | Encounter Summary ---
Author Organization [facility] Address [address] [place] [address]. [place], [place] [address] [place] [address] Care Team Providers Care Scheme Technician Name Role Phone Vernon Mercedes MD Primary Care Provider [phone] Stanislaw Rhodes MD Unavailable Unavailab Evaristo Ying MD Unavailable UnavailRaul Suresh MD Unavailable UnavailMyah Elena NP Unavailable Unavailable Deven Cleary MD Unavailable Unavailable Encounter Details Date Type Department Care Team (Late Contact Info) Description 12/06/2014 Abstract [facility] [address] [place] [address] Danny Blackwell MD [address] [place] [address] Social History Tobacco Use Types Packs/Day Years [...] (Late Contact Info) Description 04/25/2024 11:00 AM SEMICONDUCTOR ENGINEER Appointment [facility] [address] [place] [address] Ti Bonilla MD [address] [place] [phone] 05/23/2024 3:30 PM SEMICONDUCTOR ENGINEER [facility] [address] [place] [address] Jyoti Escobar MD [address] [place] [address] documented as of this encounter Visit Diagnoses Diagnosis Localized osteoarthrosis, lower leg Localized osteoarthrosis not specified whether primary or secondary, lower leg documented in this encounter Additional Health Concerns Infection Onset Date Last Indicated Resolved Time MRSA Comment:Negative MRSA 05/201903/11/2017 03/11/2017 10/03/2019 10:08 AM CDT documented as of this encounter Care Teams Scheme Technician Relationship Specialty Start Date End Date Vernon Mercedes MD [address] [place] [address] PCP - General FAMILY PRACTICE 10/27/15 12/02/21 Stanislaw [place] [address] CARDIOVASCULAR DISEASE 10/27/15 10/24/18 [place] [address] [place] Manager Philosophy CARDIOVASCULAR DISEASE 08/19/16 [place] [address] CLINICAL CARDIAC ELECTROPHYSIOLOGY 06/16/17 Myah Hand[place] [address] CARDIOVASCULAR DISEASE 06/16/17 07/10/19 [place] [address] Major Assembly Inspector INTERVENTIONAL CARDIOLOGY 03/21/18 10/24/18 documented as of this encounter
--- OUTSIDE RECORDS SUMMARY | 2024-04-23 04:31 | XMS_ITS | Encounter Summary ---
Author Organization [facility] Address [address] [place] [address]. [place], [place] [address] [place] [address] Care Team Providers Care Tile Roofer Name Role Phone Vernon Mercedes MD Primary Care Provider [phone] Stanislaw Rhodes MD Unavailable Unavailab le Reason for Visit * Reason Onset Date Comments Consult 03/09/2016 schedule consult for afib Encounter Details Date Type Department Care Team (Late st Contact Info) Description 03/09/2016 Telephone [employer] [facility] [employer] [facility] [address] [place] [address] Raul Santana MD Consult (schedule consult for afib) Social History Tobacco Use Types Packs/Day Years [...] 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 Hopper's office called to schedule an appointment with Dr. Santana for afib. It was scheduled for 04/27/16. Letter sent to pt. E CARRIER documented in this encounter Plan of Treatment Upcoming Encounters Date Type Department Care Team (Late st Contact Info) Description 04/25/2024 11:00 AM GLAZE CARRIER Appointment [facility] [address] [place] [address] Ti Bonilla MD [address] [place] [phone] 05/23/2024 3:30 PM GLAZE CARRIER Office Visit [facility] [address] [place] [phone] Jyoti Escobar MD [address] [place] [phone] documented as of this encounter Visit Diagnoses Not on filedocumented in this encounter Care Teams Tile Roofer Relationship Specialty Start Date End Date Vernon Mercedes MD [address] [place] [phone] PCP - General FAMILY PRACTICE 10/27/15 12/02/21 Stanislaw Rhodes MD [address] [place] [address] CARDIOVASCULAR DISEASE 10/27/15 10/24/18 documented as of this encounter
--- OUTSIDE RECORDS SUMMARY | 2024-04-23 04:31 | XMS_ITS | Encounter Summary ---
Author Organization [facility] Address [address] [place] [address]. 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 documented in this encounter Plan of Treatment Upcoming Encounters Date Type Department Care Team (Late st Contact Info) Description 04/25/2024 11:00 AM DESIGN MANAGER Appointment [facility] [address] [place] [address] Ti Bonilla MD [address] [place] [phone] 05/23/2024 3:30 PM DESIGN MANAGER Office Visit [facility] [address] [place] [phone] Jyoti Escobar MD [address] [place] [address] documented as of this encounter Visit Diagnoses Not on filedocumented in this encounter Care Teams Mid Teacher Relationship Specialty Start Date End Date Vernon Mercedes MD [address] [place] [address] PCP - General FAMILY PRACTICE 10/27/15 12/02/21 Stanislaw Rhodes MD [address] [place] [address] CARDIOVASCULAR DISEASE 10/27/15 10/24/18 documented as of this encounter
--- OUTSIDE RECORDS SUMMARY | 2024-04-23 04:31 | XMS_ITS | Encounter Summary ---
Author Organization [facility] Address [address] [place] [address]. 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 [place] [address] Ti Bonilla MD [address] [place] [phone] 05/23/2024 3:30 PM PARACHUTE INSPECTOR Office Visit [facility] [address] [place] [address] Jyoti Escobar MD [address] [place], [place] [address] documented as of this encounter Procedures Procedure Name Priority Date/Time Associated Diagnosis Comments ACT (HMT OR LHMT) Routine 05/19/2016 1:2 2 PM PARACHUTE INSPECTOR documented in this encounter Results * (ABNORMAL) ACT (HMT OR LHMT) (05/19/2016 1:22 PM PARACHUTE INSPECTOR) ACTIVATED CLOTTING TIME (ACT HMT OR LMT) 229(H) 74 - 137 SEC 05/19/2016 1:29 PM PARACHUTE INSPECTOR [facility] LAB ORDERS INTERFACE WHOLE BLOOD SPECIMEN / Unknown 05/19/2016 1:22 PM PARACHUTE INSPECTOR 05/19/2016 1:29 PM PARACHUTE INSPECTOR us Generic Conversion Md [facility] LAB BLOOD ORDERABLES Fi nal Result [facility] LAB ORDERS INTERFACE US documented in this encounter Visit Diagnoses Not on filedocumented in this encounter Additional Health Concerns Infection Onset Date Last Indicated Resolved Time MRSA Comment:Negative MRSA 05/201903/11/2017 03/11/2017 10/03/2019 10:08 AM CDT documented as of this encounter Care Teams Mushroom Picker Relationship Specialty Start Date End Date Vernon Mercedes MD [address] [place] [address] PCP - General FAMILY PRACTICE 10/27/15 12/02/21 [place] [address] CARDIOVASCULAR DISEASE 10/27/15 7 [place] [address] [place] Bat Carrier CARDIOVASCULAR DISEASE 08/19/16 documented as of this encounter
--- OUTSIDE RECORDS SUMMARY | 2024-04-23 04:31 | XMS_ITS | Encounter Summary ---
Author Organization [facility] Address [address] [place] [address]. [place], [place] [address] [place], [place] [id number] Care Team Providers Care Copier Field Service Technician Name Role Phone Vernon Mercedes MD Primary Care Provider [phone] Stanislaw Rhodes MD Unavailable Unavailab Evaristo Ying MD Unavailable UnavailRaul Suresh MD Unavailable UnavailMyah Elena NP Unavailable Unavailable Encounter Details Date Type Department Care Team (Late st Contact Info) Description 12/24/2014 Abstract [facility] [address] [place] [address] Danny Blackwell MD [address] [place], [place] [phone] Social History Tobacco Use Types Packs/Day Years Used Date Smoking Tobacco: Never Assessed Sex and Gender Information Value Date Recorded Sex Assigned at Not on file Legal Sex Male 10:30 AM CDT Gender Identity Not on file Sexual Orientation Not on file documented as of this encounter Progress Notes * Danny Blackwell MD - 12/24/2014 9:00 AM CDT Post-Op Evaristo Zelaya is status post total knee arthroplasty of the left knee on 12/09/2014. Doing well. States his pain is well controlled. HPI: The patient reports no excessive pain [...] no swelling . No redness. 0 - 85. Peripheral neurovascular exam reveals intact sensation to light touch and intact gross motor function. Assessment: Post-op, the patient is progressing slowly, but has excellent pain control and is showing no signs of infection. Plan: Activity Restrictions: advance as tolerated. To Do For Next Visit: remove sutures/melanie. PT Referral and VNA: for 4 weeks . I hereby certify that these services are medically necessary. Follow up: 4 weeks. Assessment 1. Aftercare following knee joint replacement surgery (V54.81,V43.65) (Z47.1,Z96.659) '''School / Work Excuse''' Return to School - Work: Evaristo Zelaya may return to work on 01/06/2015. Evaristo can return with limitations. Light duty. Signatures Electronically signed by : Danny Blackwell M.D.; Jan 08 2015 3:49PM AVIONICS SYSTEMS TECHNICIAN (Author) documented in this encounter Plan of Treatment Upcoming Encounters Date Type Department Care Team (Late st Contact Info) Description 04/25/2024 11:00 AM AVIONICS SYSTEMS TECHNICIAN [facility]ointment [facility] [address] [place] [address] Ti Bonilla MD [address] [place] [phone] 05/23/2024 3:30 PM AVIONICS SYSTEMS TECHNICIAN Office Visit [facility] [address] [place] [phone] Jyoti Escobar MD [address] [place] [address] documented as of this encounter Visit Diagnoses Not on filedocumented in this encounter Additional Health Concerns Infection Onset Date Last Indicated Resolved Time MRSA Comment:Negative MRSA 05/201903/11/2017 03/11/201710/0210/03/2019 10:08 AM CDT documented as of this encounter Care Teams Copier Field Service Technician Relationship Specialty Start Date End Date Vernon Mercedes MD [address] [place] [address] PCP - General FAMILY PRACTICE 10/27/15 12/02/21 [place] [address] CARDIOVASCULAR DISEASE 10/27/15 10/24/18 Evaristo Allan MD [address] [place] [address] [place] Mini Baccarat Dealer CARDIOVASCULAR DISEASE 08/19/16 Raul Santana MD [address] [place] [address] [phone] CLINICAL CARDIAC ELECTROPHYSIOLOGY 06/16/17 Myah Handley, FRUIT HARVEST WORKER [address] [place] [address] CARDIOVASCULAR DISEASE 06/16/17 07/10/19 documented as of this encounter
--- OUTSIDE RECORDS SUMMARY | 2024-04-23 04:31 | XMS_ITS | Encounter Summary ---
Author Organization [facility] Address [address] [place] [address]. [place], [place] [address] [place] [address] Care Team Providers Care Retail Advertising Sales Manager Name Role Phone Vernon Mercedes MD Primary Care Provider [phone] Stanislaw Rhodes MD Unavailable Unavailab Evaristo Ying MD Unavailable Unavailabl e Encounter Details Date Type Department Care Team (Late Contact Info) Description 05/19/2016 Orders [place] [address] , Generic Conversion, Social History Tobacco Use [...] (Late Contact Info) Description 04/25/2024 11:00 AM PROFESSIONAL PROGRAMMER ANALYST [facility]ointment [facility] [place] [place] [address] Ti Bonilla MD [address] [place] [phone] 05/23/2024 3:30 PM PROFESSIONAL PROGRAMMER ANALYST Office Visit [facility] [address] [place] [phone] Jyoti Escobar MD [address] [place], [place] [address] documented as of this encounter Procedures Procedure Name Priority Date/Time Associated Diagnosis Comments POCT GLUCOSE - RAMOS DOCKED DEVICE Routine 05/19/2016 9:05 PM PROFESSIONAL PROGRAMMER ANALYST documented in this encounter Results * (ABNORMAL) POCT glucose (05/19/2016 9:05 PM PROFESSIONAL PROGRAMMER ANALYST) GLUCOSE POC 142(H) 70 - 109 05/19/2016 10:46 PM PROFESSIONAL PROGRAMMER ANALYST [facility] LAB ORDERS INTERFACE WHOLE BLOOD SPECIMEN / Unknown 05/19/2016 9:05 PM PROFESSIONAL PROGRAMMER ANALYST 05/19/2016 10:46 PM PROFESSIONAL PROGRAMMER ANALYST us Generic Conversion Md [facility] POCT ORDERABLES - DEVIC E Final Result [facility] ORDERS INTERFACE US documented in this encounter Visit Diagnoses Not on filedocumented in this encounter Additional Health Concerns Infection Onset Date Last Indicated Resolved Time MRSA Comment:Negative MRSA 05/201903/11/2017 03/11/2017 10/03/2019 10:08 AM CDT documented as of this encounter Care Teams Retail Advertising Sales Manager Relationship Specialty Start Date End Date Vernon Mercedes MD [address] [place] [phone] PCP - General FAMILY PRACTICE 10/27/15 12/02/21 Stanis[place] [place] [address] CARDIOVASCULAR DISEASE 10/27/15 10/24/18 [place] [address] [employer] Membership Sales Representative CARDIOVASCULAR DISEASE 08/19/16 documented as of this encounter
--- OUTSIDE RECORDS SUMMARY | 2024-04-23 04:31 | XMS_ITS | Encounter Summary ---
Author Organization [facility] Address [address] [place] [address]. [place], [place] [address] [place] [address] Care Team Providers Care Drying Machine Tender Name Role Phone Vernon Mercedes MD Primary Care Provider [phone] Stanislaw Rhodes MD Unavailable Unavailab Elza Ying MD Unavailable UnavailRaul Suresh MD Unavailable Unavailabl Myah Gee NP Unavailable Unavailable Encounter Details Date Type Department Care Team (Late st Contact Info) Description 03/04/2015 Abstract [place] [id number] [place] [address] Danny Steiner MD [address] [place], [place] [phone] Social History Tobacco Use Types Packs/Day Years Used Date Smoking Tobacco: Never Assessed Sex and Gender Information Value Date Recorded Sex Assigned at Not on file Legal Sex Male 10:30 AM CDT Gender Identity Not on file Sexual Orientation Not on file documented as of this encounter Progress Notes * Danny Steiner MD - 03/04/2015 9:00 AM CST Post-Op Elza Mckeon is status post total knee arthroplasty of the left knee on 12/06/2014. Patient doing well. He has returned to work. He reports leg swelling at the end of the day. HPI: The patient reports no excessive pain, no swelling, no calf swelling and no leg pain. The patient also reports weight-bearing as tolerated, but not using an assistive device for ambulation. PE: The surgical incision site was clean, dry and intact. The knee demonstrates no warmth, no erythema and no swelling. 0 - 130, no limp. Assessment: Plan: Activity Restrictions: advance as tolerated. Done this visit: xray . XRAYS Today revelas prosthesis in good position. Follow up: 3 months, He has swelling related to his activity as he's on his feet all day. Orders 1. XR Knee 1 to 2 View Lt; Status:Active; Requested for:04Mar2015; 2. XR Knee Standing Bi; Status:Active; Requested for:04Mar2015; Assessment 1. Aftercare following knee joint replacement surgery (V54.81,V43.65) (Z47.1,Z96.659) Signatures Electronically signed by : Danny Steiner M.D.; Mar 04 2015 11:55AM MARKETING UNDERWRITER (Author) documented in this encounter Plan of Treatment Upcoming Encounters Date Type Department Care Team (Late st Contact Info) Description 04/25/2024 11:00 AM MARKETING UNDERWRITER Appointment [facility] [address] [place] [address] [place] [address] Ti Bonilla MD [address] [place] [phone] 05/23/2024 3:30 PM MARKETING UNDERWRITER Office Visit [facility] [facility] [address] [place] [address] Jyoti Escobar MD [address] [place] [address] documented as of this encounter Procedures Procedure Name Priority Date/Time Associated Diagnosis Comments SURG XR KNEE LT 1-2V Routine 03/04/2015 1:06 PM MARKETING UNDERWRITER XR KNEE STAND AP VANITA ONLY Routine 03/04/2015 1:02 PM MARKETING UNDERWRITER documented in this encounter Results * SURG XR KNEE LT 1-2V (03/04/2015 1:06 PM MARKETING UNDERWRITER) Anatomical Region Laterality Modality Knee IMAGES ONLY 03/04/2015 1:06 PM MARKETING UNDERWRITER 03/04/2015 1:06 PM MARKETING UNDERWRITER Narrative 03/04/2015 1:10 PM MARKETING UNDERWRITER [facility] ?? [address] ?? [place], [place] ? Patient Name: ELZA MCKEON Date of : 1960 ?? Med Rec #: [id number] ??Age/Sex: 55/M ?Pt. Location: ORTHO ?? Attending Provider: DANNY STEINER MD (TRACY) ?? Ordering Provider: DANNY STEINER MD (TRACY) ? Study Date Order Number Procedure ?? 03/04/15 [id number] XR Knee 1 to 2 Views Lt ? Signed ? 03/04/2015, 8:50 AM. ? History: Follow-up knee arthroplasty. V54.81, Z47.1 ? Exam: Standing lateral view and patellar sunrise views of the left knee correlation to prior ?? study 01/21/2015. ? Findings: Three-part cemented left total knee arthroplasty with no evidence of loosening nor ?? infection, similar in appearance compared to the prior study 01/21/2015. Probable small joint ?? effusion. Minimal ossification in the quadriceps and patellar tendons attachment to the ?? patella. No evidence of calcified intra-articular bodies. No gross bone destruction. ? Impression: ?? Three-part cemented left total knee arthroplasty. Probable small joint effusion. No acute bony ?? abnormality. ? Electronically Signed By: YAA GARCIA MD 03/04/15 1309 ? Dictated On: 03/04/15 1306 ?? Interpreted By: YAA GARCIA MD ?? Transcribed On: 03/04/15 1306 - INFCE ?? Procedure Note Stephani Luz MD - 02/10/2018 [place] [address] [place] Patient Name: ELZA MCKEON Date of : 1960 Med Rec #: [id number] Age/Sex: 55/M Pt. Location: ORTHO Attending Provider: DANNY STEIENR MD (TRACY) Ordering Provider: DANNY STEINER MD (TRACY) Study Date Order Number Procedure 03/04/15 [id number] XR Knee 1 to 2 Views Lt Signed 03/04/2015, 8:50 AM. History: Follow-up knee arthroplasty. V54.81, Z47.1 Exam: Standing lateral view and patellar sunrise views of the left kneecorrelation to prior study 01/21/2015. Findings: Three-part cemented left total knee arthroplasty with noevidence of loosening nor infection, similar in appearance compared to the prior study 01/21/2015.Probable small joint effusion. Minimal ossification in the quadriceps and patellar tendonsattachment to the patella. No evidence of calcified intra-articular bodies. No gross bonedestruction. Impression: Three-part cemented left total knee arthroplasty. Probable small jointeffusion. No acute bony abnormality. Electronically Signed By: YAA GARCIA MD 03/04/15 1309 Dictated On: 03/04/15 1306 Interpreted By: YAA GARCIA MD Transcribed On: 03/04/15 1306 - INFCE us Danny Steiner MD IMAGES ONLY Final Result * XR KNEE STAND AP VANITA ONLY (03/04/2015 1:02 PM MARKETING UNDERWRITER) Anatomical Region Laterality Modality Knee Radiographic Shannan ging 03/04/2015 1:02 PM MARKETING UNDERWRITER 03/04/2015 1:02 PM MARKETING UNDERWRITER Narrative 03/04/2015 1:07 PM MARKETING UNDERWRITER [facility] ?? [address] [place] [address] ?? [place], [place] ? Patient Name: ELZA MCKEON Date of : 1960 ?? Med Rec #: [id number] ??Age/Sex: 55/M ?Pt. Location: ORTHO ?? Attending Provider: DANNY STEINER MD (TRACY) ?? Ordering Provider: DANNY STEINER MD (TRACY) ? Study Date Order Number Procedure ?? 03/04/15 [id number] XR Knee Standing Bi ? Signed ? 03/04/2015, 8:48 AM. ? History: Follow-up left knee arthroplasty. Prior history of right total knee arthroplasty. ?? V54.81 Z47.1 ? Exam: Standing AP images both knees. Correlation prior study 01/21/2015. ? Findings: Total knee arthroplasties are present bilaterally which each of the components of ?? the prosthesis cemented in place. It is difficult to determine if there is some lucency ?? between the cement and the tibia underlying the tibial component of the right total knee ?? arthroplasty. There are no other lucent zones identified at the cement-bone cement prosthesis ?? interfaces of either knee arthroplasty. No fracture. No acute bony abnormality. No gross bone ?? destruction. ? Impression: ?? Total knee arthroplasties bilaterally as discussed. No acute bony abnormality. ? Electronically Signed By: YAA GARCIA MD 03/04/15 1306 ? Dictated On: 03/04/15 1302 ?? Interpreted By: YAA GARCIA MD ?? Transcribed On: 03/04/15 1302 - INFCE ?? Procedure Note Stephani Luz MD - 02/09/[address] Patient Name: ELZA MCKEON Date of : 1960 Med Rec #: [id number] Age/Sex: 55/M Pt. Location: ORTHO Attending Provider: DANNY STEINER MD (TRACY) Ordering Provider: DANNY STEINER MD (TRACY) Study Date Order Number Procedure 03/04/15 [id number] XR Knee Standing Bi Signed 03/04/2015, 8:48 AM. History: Follow-up left knee arthroplasty. Prior history of right totalknee arthroplasty. V54.81 Z47.1 Exam: Standing AP images both knees. Correlation prior study 01/21/2015. Findings: Total knee arthroplasties are present bilaterally which each ofthe components of the prosthesis cemented in place. It is difficult to determine if thereis some lucency between the cement and the tibia underlying the tibial component of theright total knee arthroplasty. There are no other lucent zones identified at thecement-bone cement prosthesis interfaces of either knee arthroplasty. No fracture. No acute bonyabnormality. No gross bone destruction. Impression: Total knee arthroplasties bilaterally as discussed. No acute bonyabnormality. Electronically Signed By: YAA GARCIA MD 03/04/15 1306 Dictated On: 03/04/15 1302 Interpreted By: YAA GARCIA MD Transcribed On: 03/04/15 1302 - INFCE Danny Steiner MD GENERAL IMAGING Final Result documented in this encounter Visit Diagnoses Not on filedocumented in this encounter Additional Health Concerns Infection Onset Date Last Indicated Resolved Time MRSA Comment:Negative MRSA 05/201903/11/2017 03/11/2017 10/03/2019 10:08 AM CDT documented as of this encounter Care Teams Drying Machine Tender Relationship Specialty Start Date End Date [place] [phone] PCP - General FAMILY PRACTICE 10/27/15 12/02/21 [place] [address] CARDIOVASCULAR DISEASE 10/27/15 10/24/18 [place] [place] [phone] [place] Manager Of Sustainability CARDIOVASCULAR DISEASE 08/19/16 Raul [place] [address] [place] [phone] CLINICAL CARDIAC ELECTROPHYSIOLOGY 06/16/17 [place] [address] [address] CARDIOVASCULAR DISEASE 06/16/17 07/10/19 documented as of this encounter
--- OUTSIDE RECORDS SUMMARY | 2024-04-23 04:31 | XMS_ITS | Encounter Summary ---
Author Organization [facility] Address [address] [place] [address]. [place], [place] [address] [place] [address] Care Team Providers Care Hydraulic Punch Press Operator Name Role Phone Vernon Mercedes MD Primary Care Provider [phone] Stanislaw Rhodes MD Unavailable Unavailab Evaristo Ying MD Unavailable UnavailRaul Suresh MD Unavailable UnavailMyah Elena NP Unavailable Unavailable Deven Cleary MD Unavailable Unavailable Encounter Details Date Type Department Care Team (Late Contact Info) Description 12/03/[address] 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 [address] [place] [address] Ti Bonilla MD [address] [place] [phone] 05/23/2024 3:30 PM CHRONIC MANAGER Office Visit [place] [facility] [place] [facility] [address] [place] [address] Jyoti Escobar MD [address] [place] [address] documented as of this encounter Visit Diagnoses Diagnosis Atrial fibrillation ([facility]/HCC HHS/HCC) Atrial fibrillation documented in this encounter Additional Health Concerns Infection Onset Date Last Indicated Resolved Time MRSA Comment:Negative MRSA 05/201903/11/2017 03/11/2017 10/03/2019 10:08 AM CDT documented as of this encounter Care Teams Hydraulic Punch Press Operator Relationship Specialty Start Date End Date Vernon Mercedes MD [address] [place] [address] PCP - General FAMILY PRACTICE 10/27/15 12/02/21 [place] [address] CARDIOVASCULAR DISEASE 10/27/15 10/24/18 [place] [address] [place] Dietetics Professor CARDIOVASCULAR DISEASE 08/19/16 [place] [address] CLINICAL CARDIAC ELECTROPHYSIOLOGY 06/16/17 [place] [address] CARDIOVASCULAR DISEASE 06/16/17 07/10/19 [place] [address] Croze Machine Operator INTERVENTIONAL CARDIOLOGY 03/21/18 10/24/18 documented as of this encounter
--- OUTSIDE RECORDS SUMMARY | 2024-04-23 04:31 | XMS_ITS | Encounter Summary ---
Author Organization [facility] Address [address] [place] [address]. [place], [place] [address] [place] [address] Care Team Providers Care Brine Mixer Operator Name Role Phone Vernon Mercedes MD Primary Care Provider [phone] Stanislaw Rhodes MD Unavailable Unavailab Evaristo Ying MD Unavailable UnavailRaul Suresh MD Unavailable UnavailMyah Elena NP Unavailable Unavailable Deven Cleary MD Unavailable Unavailable Encounter Details Date Type Department Care Team (Late Contact Info) Description 11/26/2015 Abstract [facility] [address] [place] [address] Danny Blackwell MD [address] [place] [address] Social History Tobacco Use Types [...] (Late Contact Info) Description 04/25/2024 11:00 AM ASSISTED LIVING HOUSEKEEPER Appointment [facility] [address] [facility] [place] [address] Ti Bonilla MD [address] [place] [address] 05/23/2024 3:30 PM ASSISTED LIVING HOUSEKEEPER [facility] [address] [place] [address] Jyoti Escobar MD [address] [place] [address] documented as of this encounter Visit Diagnoses Diagnosis Aftercare following joint replacement surgery Aftercare following joint replacement documented in this encounter Additional Health Concerns Infection Onset Date Last Indicated Resolved Time MRSA Comment:Negative MRSA 05/201903/11/2017 03/11/2017 10/03/2019 10:08 AM CDT documented as of this encounter Care Teams Brine Mixer Operator Relationship Specialty Start Date End Date Vernon Mercedes MD [address] [place] [address] PCP - General FAMILY PRACTICE 10/27/15 12/02/21 [place] [address] CARDIOVASCULAR DISEASE 10/27/15 10/24/18 [place] [address] [place] Chairman And Ceo CARDIOVASCULAR DISEASE 08/19/16 [place] [phone] CLINICAL CARDIAC ELECTROPHYSIOLOGY 06/16/17 [place] [address] CARDIOVASCULAR DISEASE 06/16/17 07/10/19 [place] [phone] Manager Linux INTERVENTIONAL CARDIOLOGY 03/21/18 10/24/18 documented as of this encounter
--- OUTSIDE RECORDS SUMMARY | 2024-04-23 04:31 | XMS_ITS | Encounter Summary ---
Author Organization [facility] Address [address] [place] [address]. [place] [address] [place] [address] Care Team Providers Care Business Services Tech Name Role Phone Vernon Mercedes MD Primary Care Provider [phone] Stanislaw Rhodes MD Unavailable Unavailab le Reason for Referral * Imaging (Routine) - Closed Specialty Diagnoses / Procedures Referred By Contac t Referred To Contact CARDIOVASCULAR DISEASE Diagnoses Paroxysmal atrial fibrillation ([facility]/HCC HHS/HCC) Procedures XA A-FIB ABLATION Raul Santana MD [facility] [address] [place] [address] Phone: tel: Referral ID Status Reason Start Date Expiration Date Visits Re quested Visits Authorized [id number] Closed 05/06/2016 05/07/2017 1 1 P OPERATOR Reason for Visit * Reason Onset Date Comments Schedule Procedure 05/05/2016 Pt was callin g to see when he will have his procedure. Encounter Details Date Type Department Care Team (Late st Contact Info) Description 05/05/2016 Telephone [place] [facility] [employer] [facility] 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 Instruction letter reviewed over the phone and mailed. I encouraged them to call with questions/concerns. P OPERATOR * Janeen Hugo - 05/05/2016 9:13 AM CST Pt saw Dr. Santana on 04/27 and is to have a PVI Ablation. Pt would like a call back with date and time so he may notify work. He states he is available any time and knows he will need to stay all night. I informed him that we would check the schedule and the nurse would give him a call back. Please call him at [phone]. P OPERATOR documented in this encounter Plan of Treatment Upcoming Encounters Date Type Department Care Team (Late st Contact Info) Description 04/25/2024 11:00 AM SCOOP OPERATOR Appointment [facility] [address] [place] [address] Ti Bonilla MD [address] [place] [phone] 05/23/2024 3:30 PM SCOOP OPERATOR Office Visit [facility] [address] [place] [phone] Jyoti Escobar MD [address] [place] [address] Scheduled Orders Name Type Priority Associated Diagnoses Orde r Schedule XA A-FIB ABLATION Cardiac Cath Routine Paroxysmal atrial fibrillation ([facility]) Expected: 05/19/2016, Expires: 05/06/2017 documented as of this encounter Visit Diagnoses Diagnosis Paroxysmal atrial fibrillation ([facility])- Primary Atrial fibrillation documented in this encounter Care Teams Business Services Tech Relationship Specialty Start Date End Date Vernon Mercedes MD [address] [place] [phone] PCP - General FAMILY PRACTICE 10/27/15 12/02/21 Stanislaw Rhodes MD [address] [place] [phone] CARDIOVASCULAR DISEASE 10/27/15 10/24/18 documented as of this encounter
--- OUTSIDE RECORDS SUMMARY | 2024-04-23 04:31 | XMS_ITS | Encounter Summary ---
Author Organization [facility] Address [address] [place] [address]. [place], [place] [address] [place] [address] Care Team Providers Care Senior Information Security Analyst Name Role Phone Vernon Mercedes MD Primary Care Provider [phone] Stanislaw Rhodes MD Unavailable Unavailab Evaristo Ying MD Unavailable UnavailRaul Suresh MD Unavailable UnavailMyah Elena NP Unavailable Unavailable Deven Cleary MD Unavailable Unavailable Encounter Details Date Type Department Care Team (Late Contact Info) Description 12/05/[address] 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 [address] [place] [address] Ti Bonilla MD [address] [place] [phone] 05/23/2024 3:30 PM GAS MASK ASSEMBLER Office Visit [facility] [address] [place] [address] Jyoti Escobar MD [address] [place] [address] documented as of this encounter Visit Diagnoses Diagnosis Atrial fibrillation ([facility]/HCC HHS/HCC) Atrial fibrillation documented in this encounter Additional Health Concerns Infection Onset Date Last Indicated Resolved Time MRSA Comment:Negative MRSA 05/201903/11/2017 03/11/2017 10/03/2019 10:08 AM CDT documented as of this encounter Care Teams Senior Information Security Analyst Relationship Specialty Start Date End Date Vernon Mercedes MD [address] [place] [address] PCP - General FAMILY PRACTICE 10/27/15 12/02/21 [place] [address] CARDIOVASCULAR DISEASE 10/27/15 10/24/18 [place] [phone] [place] [employer]ning [employer] CARDIOVASCULAR DISEASE 08/19/16 [place] [address] CLINICAL CARDIAC ELECTROPHYSIOLOGY 06/16/17 [place] [address] CARDIOVASCULAR DISEASE 06/16/17 07/10/19 [place] [address] Watchmaking Teacher INTERVENTIONAL CARDIOLOGY 03/21/18 10/24/18 documented as of this encounter
--- OUTSIDE RECORDS SUMMARY | 2024-04-23 04:32 | XMS_ITS | Encounter Summary ---
Author Organization [facility] Address [address] [place] [address]. [place], [place] [phone] [place], [place] [id number] Care Team Providers Care Medical Billing Instructor Name Role Phone Vernon Mercedes MD Primary Care Provider [phone] Stanislaw Rhodes MD Unavailable Unavailab Elza Ying MD Unavailable UnavailRaul Suresh MD Unavailable UnavailMyah Elena NP Unavailable Unavailable Encounter Details Date Type Department Care Team (Late st Contact Info) Description 07/17/2014 Abstract [facility] [address] [place] [address] Danny Steiner MD [address] [place] [address] Social History Tobacco Use Types [...] - Inhaled Oxygen Concentration - - Weight 127.9 kg (282 lb) 07/19/2014 12:11 PM CDT Height 177.8 cm (5' 10 ) 07/19/2014 12:11 PM CDT Body Mass Index 40.46 07/19/2014 12:11 PM CDT documented in this encounter Progress Notes * Danny Steiner MD - 07/17/2014 3:30 PM CDT Referred By / Reason Patient was referred by Primary Care Physician LDV by PCP: Name: Dr. Mercedes Reason: Chief Complaint 1. Knee Pain Chief Complaint: The patient presents to the office today with LEFT knee pain. History of Present Illness Patient presents to clinic today with complaints of BILATERAL knee pain. He states that his LEFT hurts worse than his RIGHT. He injured his knees on 06-18-2014 when he fell on the ice. He reports that he has had previous RIGHT total knee arthroplasty but can not remember when it was. He states his LEFT knee has swelling and pain now all the time. He reports he can not sleep at night due to his pain. Review of Systems See HPI for pertinent positives. Active Problems 1. Abdominal pain (789.00) (R10.9) 2. Diabetes (250.00) (E11.9) 3. Heartburn (787.1) (R12) 4. Hypertension (401.9) (I10) 5. Knee pain, right (719.46) (M25.561) 6. Left knee pain (719.46) (M25.562) 7. Postoperative examination (V67.00) (Z09) 8. Recurrent ventral incisional hernia (553.21) (K43.2) Past [...] Amoxicillin-Pot Clavulanate 875-125 MG Oral Tablet; Therapy: 37Rfu0012 to Recorded 2. Atenolol TABS; Therapy: (Recorded:96Kjx6094) to Recorded 3. Atorvastatin Calcium 40 MG Oral Tablet; Therapy: 26Jun2014 to Recorded 4. HumaLOG 100 UNIT/ML Subcutaneous Solution; Therapy: 00Oul4025 to Recorded 5. Hydrocodone-Acetaminophen 5-325 MG Oral Tablet; Therapy: 19Jun2014 to Recorded 6. Hydrocodone-Acetaminophen 7.5-325 MG Oral Tablet; Therapy: 16Apr2014 to Recorded 7. Levemir 100 UNIT/ML Subcutaneous Solution; Therapy: (Recorded:77Fny4531) to Recorded 8. MetFORMIN HCl TABS; Therapy: (Recorded:26Ejd9516) to Recorded 9. Naprosyn TABS (Naproxen); Therapy: (Recorded:83Jiw5309) to Recorded 10. Oxybutynin Chloride 5 MG Oral Tablet; Therapy: 21Jun2014 to Recorded 11. Ranitidine HCl TABS; Therapy: (Recorded:40Ebn6159) to Recorded 12. Sure Comfort Insulin Syringe 31G X 5/16 0.3 ML Miscellaneous; Therapy: 15Oct2013 to Recorded 13. Sure Comfort Insulin Syringe 31G X 5/16 1 ML Miscellaneous; Therapy: 02Jul2014 to Recorded 14. Tamsulosin HCl - 0.4 MG Oral Capsule; Therapy: (Recorded:75Tub8795) to Recorded 15. TraMADol HCl TABS; Therapy: (Recorded:98Wyq9925) to Recorded 16. TRUEplus Lancets 28G Miscellaneous; Therapy: 10Iyd5425 to Recorded Allergies 1. Tetracyclines Vitals Recorded: 19Jul2014 12:11PM BP Medical Reason Procedure not indicated Not able to obtain height Patient stated height Patient stated height Height 5 ft 10 in Weight 282 lb BMI Calculated 40.46 BSA Calculated 2.42 Unable to obtain weight Patient stated weight Patient stated weight Physical Exam Constitutional: alert and in no acute distress. Neurological:. The patient was oriented to person, place, and time. Mood and affect were appropriate. Eyes: pupils were equal in size, round, reactive to light, with normal accommodation. Pulmonary: no respiratory distress. Skin: no injuries or skin lesions on the right lower extremity and no injuries or skin lesions on the left lower extremity. Left Knee: EXAM today of his LEFT knee reveals medial joint line tenderness, pain with valgus streee, small effusion, positive Yossi's Results/Data XRAYS today reveals LEFT knee medial narrowing with moderate patella femoral arthritis. The RIGHT knee reveals prosthesis in good positong and no signs of loosening. Findings: Assessment 1. Left knee pain (719.46) (M25.562) Plan 1. MRI Knee WO Lt; Status:Need Information - Financial Authorization; Requested for:19Jul2014; I have recommended physical therapy. In light of his exam and injury, I have recommended a LEFT MRI. He will return when this is completed. Signatures Electronically signed by : Danny Steiner M.D.; Jul 19 2014 12:19PM TECHNICAL MAINTENANCE TECHNICIAN (Author) documented in this encounter Plan of Treatment Upcoming Encounters Date Type Department Care Team (Late st Contact Info) Description 04/25/2024 11:00 AM TECHNICAL MAINTENANCE TECHNICIAN Appointment [facility] [address] [place] [address] [place] [address] Ti Bonilla MD [address] [place] [phone] 05/23/2024 3:30 PM TECHNICAL MAINTENANCE TECHNICIAN Office Visit [facility] [place] [address] Jyoti Escobar MD [address] [place] [phone] documented as of this encounter Procedures Procedure Name Priority Date/Time Associated Diagnosis Comments XR KNEE STAND AP VANITA ONLY Routine 07/17/2014 3:55 PM CDT SURG XR KNEE LT 1-2V Routine 07/17/2014 3:52 PM CDT documented in this encounter Results * XR KNEE STAND AP VANITA ONLY (07/17/2014 3:55 PM CDT) Anatomical Region Laterality Modality Knee Radiographic Shannan ging 07/17/2014 3:55 PM CDT 07/17/2014 3:55 PM CDT Narrative 07/17/2014 3:57 PM CDT [facility] ?? [address] [facility] ?? [place], [place] ? Patient Name: ELZA MCKEON Date of : 1960 ?? Med Rec #: [id number] ??Age/Sex: 54/M ?Pt. Location: ORTHO ?? Attending Provider: DANNY STEINER MD (TRACY) ?? Ordering Provider: DANNY STEINER MD (TRACY) ? Study Date Order Number Procedure ?? 07/17/14 [id number] XR Knee Standing Bi ? Signed ? Examination: Left knee 2 views, and PA standing both knees. ? Exam time: 1535 hours. ? Clinical history: Bilateral knee pain after a fall one month ago. Left knee hurts more than ?? right knee. ? Comparison: 07/14/2012 images of the knees, and 06/19/2014 images of the right knee. ? Technique: Weightbearing PA view of both knees, and weightbearing and patellar views of the ?? left knee were obtained (3 views total). ? Findings: No plain film evidence of acute fracture or dislocation. There are degenerative ?? changes involving all 3 compartments of the left knee. There is a right knee arthroplasty in ?? good apparent alignment. ? IMPRESSION: ? 1. No evidence of acute fracture or dislocation. ? 2. Degenerative changes left knee. ? 3. Right knee arthroplasty in good apparent alignment. ? Electronically Signed By: MARIAM HAYNES MD 07/17/14 1556 ? Dictated On: 07/17/14 1555 ?? Interpreted By: MARIAM HAYNES MD ?? Transcribed On: 07/17/14 1555 - INFCE ?? Procedure Note Stephani Luz MD - 02/10/[address] Patient Name: ELZA MCKEON Date of : 1960 Med Rec #: [id number] Age/Sex: 54/M Pt. Location: ORTHO Attending Provider: DANNY STEINER MD (TRACY) Ordering Provider: DANNY STEINER MD (TRACY) Study Date Order Number Procedure 07/17/14 [id number] XR Knee Standing Bi Signed Examination: Left knee 2 views, and PA standing both knees. Exam time: 1535 hours. Clinical history: Bilateral knee pain after a fall one month ago. Leftknee hurts more than right knee. Comparison: 07/14/2012 images of the knees, and 06/19/2014 images of theright knee. Technique: Weightbearing PA view of both knees, and weightbearing andpatellar views of the left knee were obtained (3 views total). Findings: No plain film evidence of acute fracture or dislocation. Thereare degenerative changes involving all 3 compartments of the left knee. There is a rightknee arthroplasty in good apparent alignment. IMPRESSION: 1. No evidence of acute fracture or dislocation. 2. Degenerative changes left knee. 3. Right knee arthroplasty in good apparent alignment. Electronically Signed By: MARIAM HAYNES MD 07/17/14 1556 Dictated On: 07/17/14 155 Interpreted By: MARIAM HAYNES MD Transcribed On: 07/17/14 1555 - INFCE us Danny Steiner MD GENERAL IMAGING Final Result * SURG XR KNEE LT 1-2V (07/17/2014 3:52 PM CDT) Anatomical Region Laterality Modality Knee IMAGES ONLY 07/17/2014 3:52 PM CDT 07/17/2014 3:52 PM CDT Narrative 07/17/2014 3:57 PM CDT [facility] ?? [facility] ?? [place], [place] ? Patient Name: ELZA MCKEON Date of : 1960 ?? Med Rec #: [id number] ??Age/Sex: 54/M ?Pt. Location: ORTHO ?? Attending Provider: DANNY STEINER MD (TRACY) ?? Ordering Provider: DANNY STEINER MD (TRACY) ? Study Date Order Number Procedure ?? 07/17/14 [id number] XR Knee 1 to 2 Views Lt ? Signed ? Examination: Left knee 2 views, and PA standing both knees. ? Exam time: 1535 hours. ? Clinical history: Bilateral knee pain after a fall one month ago. Left knee hurts more than ?? right knee. ? Comparison: 07/14/2012 images of the knees, and 06/19/2014 images of the right knee. ? Technique: Weightbearing PA view of both knees, and weightbearing and patellar views of the ?? left knee were obtained (3 views total). ? Findings: No plain film evidence of acute fracture or dislocation. There are degenerative ?? changes involving all 3 compartments of the left knee. There is a right knee arthroplasty in ?? good apparent alignment. ? IMPRESSION: ? 1. No evidence of acute fracture or dislocation. ? 2. Degenerative changes left knee. ? 3. Right knee arthroplasty in good apparent alignment. ? Electronically Signed By: MARIAM HAYNES MD 07/17/14 1556 ? Dictated On: 07/17/14 1552 ?? Interpreted By: MARIAM HAYNES MD ?? Transcribed On: 07/17/141551 - INFCE ?? Procedure Note Danny Steiner MD - 02/08/[address] Patient Name: ELZA MCKEON Date of : 1960 Med Rec #: [id number] Age/Sex: 54/M Pt. Location: ORTHO Attending Provider: DANNY STEINER MD (TRACY) Ordering Provider: DANNY STEINER MD (TRACY) Study Date Order Number Procedure 07/17/14 [id number] XR Knee 1 to 2 Views Lt Signed Examination: Left knee 2 views, and PA standing both knees. Exam time: 1535 hours. Clinical history: Bilateral knee pain after a fall one month ago. Leftknee hurts more than right knee. Comparison: 07/14/2012 images of the knees, and 06/19/2014 images of theright knee. Technique: Weightbearing PA view of both knees, and weightbearing andpatellar views of the left knee were obtained (3 views total). Findings: No plain film evidence of acute fracture or dislocation. Thereare degenerative changes involving all 3 compartments of the left knee. There is a rightknee arthroplasty in good apparent alignment. IMPRESSION: 1. No evidence of acute fracture or dislocation. 2. Degenerative changes left knee. 3. Right knee arthroplasty in good apparent alignment. Electronically Signed By: MARIAM HAYNES MD 07/17/14 155 Dictated On: 07/17/141551 Interpreted By: MARIAM HAYNES MD Transcribed On: 07/17/141551 - INFCE Danny Steiner MD IMAGES ONLY Final Result documented in this encounter Visit Diagnoses Not on filedocumented in this encounter Additional Health Concerns Infection Onset Date Last Indicated Resolved Time MRSA Comment:Negative MRSA 05/201903/11/2017 03/11/2017 10/03/2019 10:08 AM CDT documented as of this encounter Care Teams Medical Billing Instructor Relationship Specialty Start Date End Date Vernon [place] [address] [place] [phone] PCP - General FAMILY PRACTICE 10/27/15 12/02/21 Stanislaw [place] [address] [phone] CARDIOVASCULAR DISEASE 10/27/15 10/24/18 El[place] [address] [address] [place] Soldering Machine Operator CARDIOVASCULAR DISEASE 08/19/16 Raul [place] [address] [address] CLINICAL CARDIAC ELECTROPHYSIOLOGY 06/16/17 [place] [address] [address] CARDIOVASCULAR DISEASE 06/16/17 07/10/19 documented as of this encounter
--- OUTSIDE RECORDS SUMMARY | 2024-04-23 04:32 | XMS_ITS | Encounter Summary ---
Author Organization [facility] Address [address] [place] [address]. [place], [place] [address] [place], [place] [id number] Care Team Providers Care Cleaning Associate Name Role Phone Vernon Mercedes MD Primary Care Provider [phone] Stanislaw Rhodes MD Unavailable Unavailab Elza Ying MD Unavailable UnavailRaul uSresh MD Unavailable Unavailabl Myah Gee NP Unavailable Unavailable Encounter Details Date Type Department Care Team (Late st Contact Info) Description 08/07/2014 Abstract [facility] [address] [place] [phone] Danny Steiner MD [address] [place] [address] Social History Tobacco Use Types Packs/Day Years Used Date Smoking Tobacco: Never Assessed Sex and Gender Information Value Date Recorded Sex Assigned at Not on file Legal Sex Male 10:30 AM CDT Gender Identity Not on file Sexual Orientation Not on file documented as of this encounter Procedure Notes * Danny Steiner MD - 08/07/2014 8:15 AM CDT [address] [address] Patient: ELZA MCKEON [facility] Rec#: [id number] Birthdate: 1960 Admit/Svce Date: 08/07/2014 Disch Date: Attending Md: DANNY STEINER MD (TRACY) OPERATIVE REPORT PATIENT: Elza Mckeon : 1960 MR #: [id number] Surgery Date: 08/07/2014 Chart Document DATE: 08/07/2014 Preoperative Diagnosis: left knee medial meniscus tear. Postoperative Diagnosis: Left knee medial meniscus tear. Procedure: Left knee arthroscopic medial meniscus debridement. SURGEON: Danny Steiner III, MD Anesthesia: General. 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 He has failed to see relief with conservative measures and presents for the above procedure after reviewing risks and benefits. Description of Procedure: After positioning the patient in a supine fashion on the operating table, general anesthesia was administered, antibiotics given intravenously, and a tourniquet applied to the left proximal thigh. The left leg was placed in a leg navarro and the foot of the table dropped. The left lower extremity was prepped and draped in the usual sterile fashion. An Esmarch wrap was used to exsanguinate the left lower extremity. Tourniquet inflated to 300 mmHg. An anterolateral portal was created, knee arthroscope inserted into the suprapatellar pouch, demonstrating mild synovitis. No evidence of loose bodies were present in the pouch or in either gutter. The medial compartment was entered, and an anteromedial portal created. The probe was inserted and used to demonstrate a complex unstable tear involving the medial meniscus. This was debrided back to a stable base using combination of biter and shaver, and stability was confirmed using a probe. 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 The intercondylar notch demonstrated an intact ACL and PCL. The lateral compartment was entered, and the articular surfaces were in excellent condition, and the meniscus was stable. The patellofemoral articulation tracked nicely; however, the trochlea had an area of full-thickness cartilage loss in the central aspect, with mild fibrillation involving the patella. The arthroscopic equipment was then withdrawn, and benzoin and Steri-Strips were used to close the portals, 20 mL 0.5% Marcaine with 10 mg of morphine were injected intra-articularly for postop pain relief. Sterile dressings were applied and overwrapped with Webril. The drapes were then withdrawn and an James wrap used to overwrap the dressings. The tourniquet was released at 16 minutes and general anesthesia discontinued. The patient was then transferred to a stretcher, then to the PACU in good condition. /[facility] [id number] A A [id number] cc: MD Danny Caballero MD Carl Painter, MD CP/[facility] [id number] E-Signed By A Danny Steiner MD 08/08/2014 07:35 A A [id number] cc: MD Danny Caballero MD Carl Painter, MD documented in this encounter Plan of Treatment Upcoming Encounters Date Type Department Care Team (Late st Contact Info) Description 04/25/2024 11:00 AM TITLE PROCESSOR Appointment [facility] [place] [address] Ti Bonilla MD [address] [place] [phone] 05/23/2024 3:30 PM TITLE PROCESSOR Office Visit [facility] [address] [place] [phone] Jyoti Escobar MD [address] [place] [address] documented as of this encounter Visit Diagnoses Not on filedocumented in this encounter Additional Health Concerns Infection Onset Date Last Indicated Resolved Time MRSA Comment:Negative MRSA 05/201903/11/2017 03/11/2017 10/03/2019 10:08 AM CDT documented as of this encounter Care Teams Cleaning Associate Relationship Specialty Start Date End Date Vernon Mercedes MD [address] [place] [phone] PCP - General FAMILY PRACTICE 10/27/15 12/02/21 Stanislaw Rhodes MD [facility] [place] [address] [phone] CARDIOVASCULAR DISEASE 10/27/15 10/24/18 Elza Allan MD [facility] [place] [address] [place] Antenna Engineer CARDIOVASCULAR DISEASE 08/19/16 aRul Santana MD [facility] [place] [address] [phone] CLINICAL CARDIAC ELECTROPHYSIOLOGY 06/16/17 My[place] [phone] CARDIOVASCULAR DISEASE 06/16/17 07/10/19 documented as of this encounter
--- OUTSIDE RECORDS SUMMARY | 2024-04-23 04:32 | XMS_ITS | Encounter Summary ---
Author Organization [facility] Address [address] [place] [address]. [place], [place] [address] [place] [address] Care Team Providers Care Chronometer Adjuster Name Role Phone Vernon Mercedes MD Primary Care Provider [phone] Stanislaw Rhodes MD Unavailable Unavailab Evaristo Ying MD Unavailable UnavailRaul Suresh MD Unavailable UnavailMyah Elena NP Unavailable Unavailable Encounter Details Date Type Department Care Team (Late st Contact Info) Description 04/30/2014 Abstract [facility] [address] [facility], 2nd [place] [address] Mendel Carver DO [address] [place] [address] Social History Tobacco Use Types Packs/Day Years Used Date Smoking Tobacco: Never Assessed Sex and Gender Information Value Date Recorded Sex Assigned at Not on file Legal Sex Male 10:30 AM CDT Gender Identity Not on file Sexual Orientation Not on file documented as of this encounter Last Filed Vital Signs Vital Sign Reading Time Taken Comments Blood Pressure 140/90 04/30/2014 9:51 AM AIR CARRIER INSPECTOR Pulse - - Temperature - - Respiratory Rate - - Oxygen Saturation - - Inhaled Oxygen Concentration - - Weight 131.5 kg (290 lb) 04/30/2014 9:51 AM AIR CARRIER INSPECTOR Height 177.8 cm (5' 10 ) 04/30/2014 9:51 AM AIR CARRIER INSPECTOR Body Mass Index 41.61 04/30/2014 9:51 AM AIR CARRIER INSPECTOR documented in this encounter Progress Notes * eMndel Carver, DO - 04/30/2014 10:45 AM CST Reason For Visit Reason For Visit: Post-Op Visit Chief Complaint Chief Complaint: Here for routine followup; Post-Op HPI: Evaristo is here for routine followup from his recent incisional hernia repair; he denies any current complaints or symptoms; he is no longer wearing the binder or taking the pain medicine; Review of Systems Focused-Male: Constitutional: Normal. ENT: normal. Cardiovascular: Normal. Respiratory: Normal. Gastrointestinal: Normal. Genitourinary: Normal. Integumentary: Normal. Musculoskeletal: Normal. Neurological: Normal. Psychiatric: Normal. Active Problems 1. Abdominal pain (789.00) (R10.9) 2. Diabetes (250.00) (E11.9) 3. Heartburn (787.1) (R12) 4. Hypertension (401.9) (I10) 5. Postoperative examination (V67.00) (Z09) 6. Recurrent ventral incisional hernia (553.21) (K43.2) Social History ?? Never a smoker (V49.89) (Z78.9) Current Meds 1. Atenolol TABS; Therapy: (Recorded:[id number]) to Recorded 2. Levemir 100 UNIT/ML Subcutaneous Solution; Therapy: (Recorded:17Kcq2656) to Recorded 3. MetFORMIN HCl TABS; Therapy: (Recorded:[id number]) to Recorded 4. Naprosyn TABS; Therapy: (Recorded:96Mno9624) to Recorded 5. Ranitidine HCl TABS; Therapy: (Recorded:84Vkj4191) to Recorded 6. Tamsulosin HCl - 0.4 MG Oral Capsule; Therapy: (Recorded:33Ljn6017) to Recorded 7. TraMADol HCl TABS; Therapy: (Recorded:99Cqd5139) to Recorded Allergies 1. Tetracyclines Vitals Vital Signs [Data Includes: Current Encounter] Recorded by : Janeen Rodriguez at 30Apr2014 09:51AM Systolic 140 Diastolic 90 Height 5 ft 10 in Weight 290 lb BMI Calculated 41.61 BSA Calculated 2.44 Physical Exam Constitutional General appearance: No acute distress, well appearing and well nourished. Abdomen Abdomen: Non-tender, no masses. Seroma;. Liver and spleen: No hepatomegaly or splenomegaly. Musculoskeletal Gait and station: Normal. Skin Skin and subcutaneous tissue: Normal without rashes or lesions. Psychiatric Orientation to person, place and time: Normal. Mood and affect: Normal. Assessment 1. Postoperative examination (V67.00) (Z09) 2. History of Hernia Repair Discussion/Summary Discussion Summary Free Text: Evaristo is a pleasant 54 yo male who recently underwent a laparoscopic incisional hernia repair; he is doing very well thus far; his pain is negligible; he has already returned to work (light duty); he is no longer wearing the binder; his incisions have healed nicely; I reassured him that the seromawould resolve spontaneously, with time; I will release him back to full duty effective 05/18/14; I encouraged him to contact me should he have any further questions or concerns; Signatures Electronically signed by : Mendel Carver D.O.; Apr 30 2014 10:57AM AIR CARRIER INSPECTOR (Author) documented in this encounter Plan of Treatment Upcoming Encounters Date Type Department Care Team (Late st Contact Info) Description 04/25/2024 11:00 AM AIR CARRIER INSPECTOR Appointment [facility] [address] [place] [address] iT Bonilla MD [address] [place] [phone] 05/23/2024 3:30 PM AIR CARRIER INSPECTOR Office Visit [facility] [address] [place] [address] Jyoti Escobar MD [address] [place] [address] documented as of this encounter Visit Diagnoses Not on filedocumented in this encounter Additional Health Concerns Infection Onset Date Last Indicated Resolved Time MRSA Comment:Negative MRSA 05/201903/11/2017 03/11/2017 10/03/2019 10:08 AM CDT documented as of this encounter Care Teams Chronometer Adjuster Relationship Specialty Start Date End Date [place] [place] [phone] PCP - General FAMILY PRACTICE 10/27/15 12/02/21 Stanislaw Rhodes MD [address] [place] [address] CARDIOVASCULAR DISEASE 10/27/15 10/24/18 Evaristo Allan MD [address] [place] [address] Felt Oyster Sorter CARDIOVASCULAR DISEASE 08/19/16 Raul [place] [address] [address] CLINICAL CARDIAC ELECTROPHYSIOLOGY 06/16/17 Myah Handley [place] [address] [address] CARDIOVASCULAR DISEASE 06/16/17 07/10/19 documented as of this encounter
--- OUTSIDE RECORDS SUMMARY | 2024-04-23 04:32 | XMS_ITS | Encounter Summary ---
Author Organization [facility] Address [address] [place] [address]. [place], [place] [address] [place] [address] Care Team Providers Care Saddle Stitch Operator Name Role Phone Vernon Mercedes MD Primary Care Provider Stanislaw Rhodes MD Unavailable Unavailab Evaristo Ying MD Unavailable UnavailRaul Suresh MD Unavailable UnavailMyah Elena NP Unavailable Unavailable Deven Cleary MD Unavailable Unavailable Encounter Details Date Type Department Care Team (Late st Contact Info) Description 06/02/[address] [facility] [address] [place] [address] Vernon Mercedes MD [address] [place] [phone] Social History Tobacco Use Types Packs/Day Years [...] st Contact Info) Description 04/25/2024 11:00 AM PLC CONTROLS ENGINEER Appointment [facility] [address] [place] [address] Ti Bonilla MD [address] [place] [phone] 05/23/2024 3:30 PM PLC CONTROLS ENGINEER [facility] [address] [place] [address] Jyoti Escobar MD [address] [place] [address] documented as of this encounter Visit Diagnoses Diagnosis Special screening for malignant neoplasms, colon documented in this encounter Additional Health Concerns Infection Onset Date Last Indicated Resolved Time MRSA Comment:Negative MRSA 05/201903/11/2017 03/11/2017 10/03/2019 10:08 AM CDT documented as of this encounter Care Teams Saddle Stitch Operator Relationship Specialty Start Date End Date Vernon Mercedes MD [address] [place] [address] PCP - General FAMILY PRACTICE 10/27/15 12/02/21 [place] [address] CARDIOVASCULAR DISEASE 10/27/15 10/24/18 [place] [address] Painter Helper CARDIOVASCULAR DISEASE 08/19/16 [place] [address] CLINICAL CARDIAC ELECTROPHYSIOLOGY 06/16/17 Myah [place] [address] CARDIOVASCULAR DISEASE 06/16/17 07/10/19 [place] [address] C2 Tactical Analysis Technician INTERVENTIONAL CARDIOLOGY 03/21/18 10/24/18 documented as of this encounter
--- OUTSIDE RECORDS SUMMARY | 2024-04-23 04:32 | XMS_ITS | Encounter Summary ---
Author Organization [facility] Address [address] [place] [address]. [place] [address] [place] [address] Care Team Providers Care Pigment Furnace Tender Name Role Phone Vernon Mercedes MD Primary Care Provider [phone] Stanislaw Rhodes MD Unavailable Unavailab Evaristo Ying MD Unavailable UnavailRaul Suresh MD Unavailable Unavailabl Myah Gee NP Unavailable Unavailable Encounter Details Date Type Department Care Team (Latest Contact Info) Description 03/07/2014 Abstract [facility] Social History Tobacco Use [...] Contact Info) Description 04/25/2024 11:00 AM RAIL CAR WELDER Appointment [facility] [place] [address] Ti Bonilla MD [address] [place] [phone] 05/23/2024 3:30 PM RAIL CAR WELDER Office Visit [facility] [address] [place] [phone] Jyoti Escobar MD [address] [place] [address] documented as of this encounter Visit Diagnoses Not on filedocumented in this encounter Additional Health Concerns Infection Onset Date Last Indicated Resolved Time MRSA Comment:Negative MRSA 05/201903/11/2017 03/11/2017 10/03/2019 10:08 AM CDT documented as of this encounter Care Teams Pigment Furnace Tender Relationship Specialty Start Date End Date Vernon Mercedes MD [address] [place] [address] PCP - General FAMILY PRACTICE 10/27/15 12/02/21 Stanis[place] [address] [address] CARDIOVASCULAR DISEASE 10/27/15 10/24/18 [place]var[place] [place] [address] [place] Garden Tractor Mechanic CARDIOVASCULAR DISEASE 08/19/16 Ra[place] [address] [address] CLINICAL CARDIAC ELECTROPHYSIOLOGY 06/16/17 [place] [address] [place] [address] CARDIOVASCULAR DISEASE 06/16/17 07/10/19 documented as of this encounter
--- OUTSIDE RECORDS SUMMARY | 2024-04-23 04:32 | XMS_ITS | Encounter Summary ---
Author Organization [facility] Address [address] [place] [address]. [place], [place] [address] [place] [address] Care Team Providers Care Rn Review Name Role Phone Vernon Mercedes MD Primary Care Provider [phone] Stanislaw Rhodes MD Unavailable Unavailab Evaristo Ying MD Unavailable UnavailRaul Suresh MD Unavailable UnavailMyah Elena NP Unavailable Unavailable Deven Cleary MD Unavailable Unavailable Encounter Details Date Type Department Care Team (Late Contact Info) Description 07/17/2014 Abstract [facility] [address] [place] [address] Danny Blackwell MD [address] [place], [place] [phone] Social History Tobacco Use Types Packs/Day Years [...] (Late Contact Info) Description 04/25/2024 11:00 AM BUDGET ACCOUNTANT Appointment [facility] [address] [facility] [place] [address] Ti Bonilla MD [address] [place] [phone] 05/23/2024 3:30 PM BUDGET ACCOUNTANT [facility] [address] [place] [address] Jyoti Escobar MD [address] [place] [address] documented as of this encounter Visit Diagnoses Diagnosis Pain in joint, lower leg documented in this encounter Additional Health Concerns Infection Onset Date Last Indicated Resolved Time MRSA Comment:Negative MRSA 05/201903/11/2017 03/11/2017 10/03/2019 10:08 AM CDT documented as of this encounter Care Teams Rn Review Relationship Specialty Start Date End Date Vernon Mercedes MD [address] [place] [address] PCP - General FAMILY PRACTICE 10/27/15 12/02/21 [place] [address] CARDIOVASCULAR DISEASE 10/27/15 10/24/18 [place] [address] [place] Log Check Scaler CARDIOVASCULAR DISEASE 08/19/16 [place] [address] CLINICAL CARDIAC ELECTROPHYSIOLOGY 06/16/17 Mayh Handley, SALES ACCOUNT [place] [address] CARDIOVASCULAR DISEASE 06/16/17 07/10/19 [place] [address] Mobility Manager INTERVENTIONAL CARDIOLOGY 03/21/18 10/24/18 documented as of this encounter
--- OUTSIDE RECORDS SUMMARY | 2024-04-23 04:32 | XMS_ITS | Encounter Summary ---
Author Organization [facility] Address [address] [place] [address]. [place], [place] [address] [place] [address] Care Team Providers Care Audit Lead Name Role Phone Vernon Mercedes MD Primary Care Provider [phone] Stanislaw Rhodes MD Unavailable Unavailab Evaristo Ynig MD Unavailable UnavailRaul Suresh MD Unavailable UnavailMyah Elena NP Unavailable Unavailable Deven Cleary MD Unavailable Unavailable Encounter Details Date Type Department Care Team (Late st Contact Info) Description 05/07/2010 Abstract [facility] [address] [place] [address] Vernon Mercedes MD [address] [place] [address] Social History Tobacco Use Types Packs/Day Years [...] st Contact Info) Description 04/25/2024 11:00 AM BIODIESEL OPERATIONS MANAGER Appointment [facility] [address] [place] [address] Ti Bonilla MD [address] [place] [phone] 05/23/2024 3:30 PM BIODIESEL OPERATIONS MANAGER [facility] [address] [place] [address] Jyoti Escobar MD [address] [place] [address] documented as of this encounter Visit Diagnoses Diagnosis Pain in joint, hand documented in this encounter Additional Health Concerns Infection Onset Date Last Indicated Resolved Time MRSA Comment:Negative MRSA 05/201903/11/2017 03/11/2017 10/03/2019 10:08 AM CDT documented as of this encounter Care Teams Audit Lead Relationship Specialty Start Date End Date Vernon Mercedes MD [address] [place] [address] PCP - General FAMILY PRACTICE 10/27/15 12/02/21 [place] [address] CARDIOVASCULAR DISEASE 10/27/15 10/24/18 [place] [address] [place] Metal Fence Erector CARDIOVASCULAR DISEASE 08/19/16 [place] [address] CLINICAL CARDIAC ELECTROPHYSIOLOGY 06/16/17 Myah Handley, [place] [address] CARDIOVASCULAR DISEASE 06/16/17 07/10/19 [place] [address] Crop Quantitative Geneticist INTERVENTIONAL CARDIOLOGY 03/21/18 10/24/18 documented as of this encounter
--- OUTSIDE RECORDS SUMMARY | 2024-04-23 04:32 | XMS_ITS | Encounter Summary ---
Author Organization [facility] Address [address] [place] [address]. [place], [place] [address] [place] [address] Care Team Providers Care Fire Patrol Name Role Phone Vernon Mercedes MD Primary Care Provider [phone] Stanislaw Rhodes MD Unavailable Unavailab Evaristo Ying MD Unavailable Unavailabl e Encounter Details Date Type Department Care Team (Late st Contact Info) Description 06/02/2010 Abstract [facility] [address] [place] [address] Vernon Mercedes MD [address] [place] [address] Social History Tobacco Use Types Packs/Day [...] st Contact Info) Description 04/25/2024 11:00 AM WEALTH MANAGEMENT MANAGER [facility]ointment [facility] [address] [place] [address] Ti Bonilla MD [address] [place] [phone] 05/23/2024 3:30 PM WEALTH MANAGEMENT MANAGER Office Visit [facility] [address] [place] [address] Jyoti Escobar MD [address] [place] [address] documented as of this encounter Visit Diagnoses Diagnosis Examination Unspecified examination documented in this encounter Additional Health Concerns Infection Onset Date Last Indicated Resolved Time MRSA Comment:Negative MRSA 05/201903/11/2017 03/11/2017 10/03/2019 10:08 AM CDT documented as of this encounter Care Teams Fire Patrol Relationship Specialty Start Date End Date Vernon Mercedes MD [address] [place] [address] PCP - General FAMILY PRACTICE 10/27/15 12/02/21 Stanislaw Rhodes MD [address] [place] [address] CARDIOVASCULAR DISEASE 10/27/15 10/24/18 Evaristo Allan MD [address] [place] [address] [facility] CARDIOVASCULAR DISEASE 08/19/16 documented as of this encounter
--- OUTSIDE RECORDS SUMMARY | 2024-04-23 04:32 | XMS_ITS | Encounter Summary ---
Author Organization [facility] Address [address] [place] [address]. [place], [place] [address] [place], [place] [phone] Care Team Providers Care Boat Outfitting Supervisor Name Role Phone Vernon Mercedes MD Primary Care Provider [phone] Stanislaw Rhodes MD Unavailable Unavailab Evaristo Ying MD Unavailable UnavailRaul Suresh MD Unavailable UnavailMyah Elena NP Unavailable Unavailable Encounter Details Date Type Department Care Team (Late st Contact Info) Description 09/04/2014 Abstract [facility] [address] [place] [address] Danny Blackwell MD [address] [place], [place] [phone] Social History Tobacco Use Types Packs/Day Years Used Date Smoking Tobacco: Never Assessed Sex and Gender Information Value Date Recorded Sex Assigned at Not on file Legal Sex Male 10:30 AM CDT Gender Identity Not on file Sexual Orientation Not on file documented as of this encounter Progress Notes * Danny Blackwell MD - 09/04/2014 4:15 PM CDT Post-Op Evaristo Zelaya is status post medial meniscectomy of the left knee on 08/07/2014. 4 weeks post op. Patient was doing better and was participating in physical therapy until his twisted his LEFT knee yesterday when walking. He had an increase of pain and is limping again. HPI: PE: The knee demonstrates no warmth and no erythema . Effusion, medial joint line tenderness. Painful limp. Tests for DVT and compartment syndrome reveal no calf swelling and no calf tenderness. Assessment: Post-op, the patient is doing well, has excellent pain control and is showing no signs of infection. Plan: Activity Restrictions: Advance as tolerated. HPI: PE: Assessment: Plan: HE will use a brace and continue physical therapy. He will return in 2 weeks for evaluation. We discussed that he may have a possible retear of his meniscus. Assessment 1. Aftercare following surgery (V58.89) (Z48.89) Procedure Procedure: Aspiration and Injection of the knee joint on the left Indication: effusion. Were discussed with the patient. Preparation: alcohol was used to prep the area and betadine was used to prep the area. Ethyl chloride spray was used as a topical anesthetic. Procedure Note: 10 mL of yellow fluid was aspirated with a 22-gauge 1.5 inch needle. The syringe was changed and the same needle was left in place and was used to inject 8 mL of 1% Lidocaine and 1 mL80mg/mL methylprednisolone. A bandage was applied. Post-Procedure: The patient tolerated the procedure well. Complications: None. Signatures Electronically signed by : Danny Blackwell M.D.; Sep 04 2014 4:52PM NANOTECHNOLOGY ENGINEERING TECHNOLOGIST (Author) documented in this encounter Plan of Treatment Upcoming Encounters Date Type Department Care Team (Late st Contact Info) Description 04/25/2024 11:00 AM NANOTECHNOLOGY ENGINEERING TECHNOLOGIST Appointment [facility] [place] [address] Ti Bonilla MD [address] [place] [phone] 05/23/2024 3:30 PM NANOTECHNOLOGY ENGINEERING TECHNOLOGIST Office Visit [facility] [address] [place] [address] Jyoti Escobar MD [address] [place] [address] documented as of this encounter Visit Diagnoses Not on filedocumented in this encounter Additional Health Concerns Infection Onset Date Last Indicated Resolved Time MRSA Comment:Negative MRSA 05/201903/11/2017 03/11/2017 10/03/2019 10:08 AM CDT documented as of this encounter Care Teams Boat Outfitting Supervisor Relationship Specialty Start Date End Date Vernon Mercedes MD [address] [place] [address] PCP - General FAMILY PRACTICE 10/27/15 12/02/21 Stanislaw Rhodes MD [address] [place] [address] CARDIOVASCULAR DISEASE 10/27/15 10/24/18 Evaristo Allan MD [address] [place] [address] [place] Crystalizer Tender CARDIOVASCULAR DISEASE 08/19/16 Raul [place] [place] [address] CLINICAL CARDIAC ELECTROPHYSIOLOGY 06/16/17 Myah Handley NP [address] [place] [address] CARDIOVASCULAR DISEASE 06/16/17 07/10/19 documented as of this encounter
--- OUTSIDE RECORDS SUMMARY | 2024-04-23 04:32 | XMS_ITS | Encounter Summary ---
Author Organization [facility] Address [address] [place] [address]. [place], [place] [phone] [place] [address] Care Team Providers Care Field Crop Farmer Name Role Phone Vernon Mercedes MD Primary Care Provider [phone] Stanislaw Rhodes MD Unavailable Unavailab Evaristo Ying MD Unavailable UnavailRaul Suresh MD Unavailable UnavailMyah Elena NP Unavailable Unavailable Deven Cleary MD Unavailable Unavailable Encounter Details Date Type Department Care Team (Late st Contact Info) Description 07/24/[address] [facility] [address] [place] [address] Danny Blackwell MD [address] [place] [address] Social History Tobacco Use Types Packs/Day Years [...] (Late Contact Info) Description 04/25/2024 11:00 AM PORTABLE MACHINE SANDER Appointment [facility] [address] [place] [address] Ti Bonilla MD [address] [place] [phone] 05/23/2024 3:30 PM PORTABLE MACHINE SANDER [facility] [address] [place] [address] Jyoti Escobar MD [address] [place] [address] documented as of this encounter Visit Diagnoses Diagnosis Tear of medial cartilage or meniscus of knee, current documented in this encounter Additional Health Concerns Infection Onset Date Last Indicated Resolved Time MRSA Comment:Negative MRSA 05/201903/11/2017 03/11/2017 10/03/2019 10:08 AM CDT documented as of this encounter Care Teams Field Crop Farmer Relationship Specialty Start Date End Date Vernon Mercedes MD [address] [place] [address] PCP - General FAMILY PRACTICE 10/27/15 12/02/21 [place] [address] CARDIOVASCULAR DISEASE 10/27/15 10/24/18 [place] [address] [place] Business Line Controller CARDIOVASCULAR DISEASE 08/19/16 [place] [address] CLINICAL CARDIAC ELECTROPHYSIOLOGY 06/16/17 Myah Handley, [place] [address] CARDIOVASCULAR DISEASE 06/16/17 07/10/19 [place] [address] Territory Sales Manager INTERVENTIONAL CARDIOLOGY 03/21/18 10/24/18 documented as of this encounter
--- OUTSIDE RECORDS SUMMARY | 2024-04-23 04:32 | XMS_ITS | Encounter Summary ---
Author Organization [facility] Address [address] [place] [address]. [place], [place] [address] [place] [address] Care Team Providers Care Piano Teacher Name Role Phone Vernon Mercedes MD Primary Care Provider [phone] Stanislaw Rhodes MD Unavailable Unavailab Evaristo Ying MD Unavailable UnavailRaul Suresh MD Unavailable UnavailMyah Elena NP Unavailable Unavailable Deven Cleary MD Unavailable Unavailable Encounter Details Date Type Department Care Team (Late st Contact Info) Description 06/21/[address] [facility] [address] [place] [address] Vernon Mercedes MD [address] [place] [address] Social History Tobacco Use Types Packs/Day Years [...] st Contact Info) Description 04/25/2024 11:00 AM INVENTORY CONTROL COORDINATOR Appointment [facility] [address] [place] [address] Ti Bonilla MD [address] [place] [phone] 05/23/2024 3:30 PM INVENTORY CONTROL COORDINATOR [facility] [address] [place] [address] Jyoti Escobar MD [address] [place] [address] documented as of this encounter Visit Diagnoses Diagnosis Type 2 or unspecified type diabetes mellitus ([facility]/HCC HHS/HCC) documented in this encounter Additional Health Concerns Infection Onset Date Last Indicated Resolved Time MRSA Comment:Negative MRSA 05/201903/11/2017 03/11/2017 10/03/2019 10:08 AM CDT documented as of this encounter Care Teams Piano Teacher Relationship Specialty Start Date End Date Vernon Mercedes MD [address] [place] [address] PCP - General FAMILY PRACTICE 10/27/15 12/02/21 [place] [address] CARDIOVASCULAR DISEASE 10/27/15 10/24/18 [place] [address] [place] Marketing Production Manager CARDIOVASCULAR DISEASE 08/19/16 [place] [address] CLINICAL CARDIAC ELECTROPHYSIOLOGY 06/16/17 Myah Handley EQUIPMENT OPERATOR/[place] [address] CARDIOVASCULAR DISEASE 06/16/17 07/10/19 [place] [address] Slime Plant Operator Helper INTERVENTIONAL CARDIOLOGY 03/21/18 10/24/18 documented as of this encounter
--- OUTSIDE RECORDS SUMMARY | 2024-04-23 04:32 | XMS_ITS | Encounter Summary ---
Author Organization [facility] Address [address] [place] [address]. [place] [address] [place] [address] Care Team Providers Care Fleet Sales Associate Name Role Phone Vernon Mercedes MD Primary Care Provider [phone] Stanislaw Rhodes MD Unavailable Unavailab Evaristo Ying MD Unavailable UnavailRaul Suresh MD Unavailable UnavailMyah Elena NP Unavailable Unavailable Deven Cleary MD Unavailable Unavailable Encounter Details Date Type Department Care Team (Late Contact Info) Description 08/03/2013 Abstract [facility] [address] [place] [address] Bettye Coyle MD [address] [place] [address] Social History Tobacco Use Types Packs/Day Years [...] (Late Contact Info) Description 04/25/2024 11:00 AM IRON GUARDRAIL INSTALLER Appointment [facility] [address] [facility] [place] [address] Ti Bonilla MD [address] [place] [phone] 05/23/2024 3:30 PM IRON GUARDRAIL INSTALLER Office Visit [facility] [address] [place] [address] Jyoti Escobar MD [address] [place] [address] documented as of this encounter Visit Diagnoses Not on filedocumented in this encounter Additional Health Concerns Infection Onset Date Last Indicated Resolved Time MRSA Comment:Negative MRSA 05/201903/11/2017 03/11/2017 10/03/2019 10:08 AM CDT documented as of this encounter Care Teams Fleet Sales Associate Relationship Specialty Start Date End [place] [address] PCP - General FAMILY PRACTICE 10/27/15 12/02/21 [place] [address] CARDIOVASCULAR DISEASE 10/27/15 10/24/18 [place] [address] [place] Radiology Physician Assistant CARDIOVASCULAR DISEASE 08/19/16 [place] [address] CLINICAL CARDIAC ELECTROPHYSIOLOGY 06/16/17 Myah Handley [place] [address] CARDIOVASCULAR DISEASE 06/16/17 07/10/19 [place] [address] Global Logistics Manager INTERVENTIONAL CARDIOLOGY 03/21/18 10/24/18 documented as of this encounter
--- OUTSIDE RECORDS SUMMARY | 2024-04-23 04:32 | XMS_ITS | Encounter Summary ---
Author Organization [facility] Address [address] [place] [address]. [place], [place] [address] [place] [address] Care Team Providers Care Auto Service Writer Name Role Phone Vernon Mercedes MD Primary Care Provider [phone] Stanislaw Rhodes MD Unavailable Unavailab Evaristo Ying MD Unavailable UnavailRaul Suresh MD Unavailable UnavailMyah Elena NP Unavailable Unavailable Deven Cleary MD Unavailable Unavailable Encounter Details Date Type Department Care Team (Late st Contact Info) Description 06/16/[address] [facility] [address] [place] [address] Vernon Mercedes MD [address] [place] [address] Social History Tobacco Use Types Packs/Day Years [...] st Contact Info) Description 04/25/2024 11:00 AM BOILERMAKING SUPERVISOR Appointment [facility] [address] [place] [address] Ti Bonilla MD [address] [place] [phone] 05/23/2024 3:30 PM BOILERMAKING SUPERVISOR [facility] [address] [place] [address] Jyoti Escobar MD [address] [place] [address] documented as of this encounter Visit Diagnoses Diagnosis Essential hypertension Unspecified essential hypertension documented in this encounter Additional Health Concerns Infection Onset Date Last Indicated Resolved Time MRSA Comment:Negative MRSA 05/201903/11/2017 03/11/2017 10/03/2019 10:08 AM CDT documented as of this encounter Care Teams Auto Service Writer Relationship Specialty Start Date End Date Vernon Mercedes MD [address] [place] [address] PCP - General FAMILY PRACTICE 10/27/15 12/02/21 [place] [address] CARDIOVASCULAR DISEASE 10/27/15 10/24/18 [place] [address] [place] Chef De Froid CARDIOVASCULAR DISEASE 08/19/16 [place] [address] CLINICAL CARDIAC ELECTROPHYSIOLOGY 06/16/17 Myah Handley, [place] [address] CARDIOVASCULAR DISEASE 06/16/17 07/10/19 [place] [address] Silver Holloware Assembler INTERVENTIONAL CARDIOLOGY 03/21/18 10/24/18 documented as of this encounter
--- OUTSIDE RECORDS SUMMARY | 2024-04-23 04:32 | XMS_ITS | Encounter Summary ---
Author Organization [facility] Address [address] [place] [address]. [place] [address] [place] [address] Care Team Providers Care Educational Coordinator Name Role Phone Vernon Mercedes MD Primary Care Provider [phone] Stanislaw Rhodes MD Unavailable Unavailab Evaristo Ying MD Unavailable Unavailabl Raul Duran MD Unavailable Unavailabl Myah Gee NP Unavailable Unavailable Encounter Details Date Type Department Care Team (Late st Contact Info) Description 04/16/2014 Abstract [facility] [address] [place] [address], 2nd [place] [address] Mendel Carver, DO [address] [place] [address] Social History Tobacco Use Types Packs/Day Years [...] (Late Contact Info) Description 04/25/2024 11:00 AM SKELP PROCESSOR Appointment [facility] [address] [place] [address] [place] [address] Ti Bonilla MD [address] [place] [phone] 05/23/2024 3:30 PM SKELP PROCESSOR [facility] [address] [place] [address] Jyoti Escobar MD [address] [place] [address] documented as of this encounter Visit Diagnoses Not on filedocumented in this encounter Additional Health Concerns Infection Onset Date Last Indicated Resolved Time MRSA Comment:Negative MRSA 05/201903/11/2017 03/11/2017 10/03/2019 10:08 AM CDT documented as of this encounter Care Teams Educational Coordinator Relationship Specialty Start Date End Date Vernon Mercedes MD [address] [place] [address] PCP - General FAMILY PRACTICE 10/27/15 12/02/21 [place] [address] CARDIOVASCULAR DISEASE 10/27/15 10/24/18 [place] [address] [place] Care Specialist CARDIOVASCULAR DISEASE 08/19/16 [place] [address] CLINICAL CARDIAC ELECTROPHYSIOLOGY 06/16/17 Myah Handley, STOCK CLERK [place] [address] CARDIOVASCULAR DISEASE 06/16/17 07/10/19 documented as of this encounter
--- OUTSIDE RECORDS SUMMARY | 2024-04-23 04:32 | XMS_ITS | Encounter Summary ---
Author Organization [facility] Address [address] [place] [address]. [place] [address] [place] [address] Care Team Providers Care Picu Nurse Name Role Phone Vernon Mercedes MD Primary Care Provider [phone] Stanislaw Rhodes MD Unavailable Unavailab Evaristo Ying MD Unavailable UnavailRaul Suresh MD Unavailable UnavailMyah Elena NP Unavailable Unavailable Deven Cleary MD Unavailable Unavailable Encounter Details Date Type Department Care Team (Late Contact Info) Description 08/25/2011 Abstract [facility] [address] [place] [address] Bettye Coyle MD [address] [place] [address] Social History Tobacco Use Types [...] (Late Contact Info) Description 04/25/2024 11:00 AM PLANT CARE WORKER Appointment [facility] [address] [facility] [place] [address] Ti Bonilla MD [address] [place] [phone] 05/23/2024 3:30 PM PLANT CARE WORKER Office Visit [facility] [address] [place] [address] Jyoti Escobar MD [address] [place] [address] documented as of this encounter Visit Diagnoses Diagnosis Pain in joint, ankle and foot documented in this encounter Additional Health Concerns Infection Onset Date Last Indicated Resolved Time MRSA Comment:Negative MRSA 05/201903/11/2017 03/11/2017 10/03/2019 10:08 AM CDT documented as of this encounter Care Teams Picu Nurse Relationship Specialty Start Date End Date Vernon Mercedes MD [address] [place] [address] PCP - General FAMILY PRACTICE 10/27/15 12/02/21 [place] [address] CARDIOVASCULAR DISEASE 10/27/15 10/24/18 [place] [address] [place] Meeting/Event Planner CARDIOVASCULAR DISEASE 08/19/16 [place] [address] CLINICAL CARDIAC ELECTROPHYSIOLOGY 06/16/17 Myah Handley MILITARY [place] [address] CARDIOVASCULAR DISEASE 06/16/17 07/10/19 [place] [address] Rag Boiler INTERVENTIONAL CARDIOLOGY 03/21/18 10/24/18 documented as of this encounter
--- OUTSIDE RECORDS SUMMARY | 2024-04-23 04:32 | XMS_ITS | Encounter Summary ---
Author Organization [facility] Address [address] [place] [address]. [place], [place] [address] [place] [address] Care Team Providers Care Manager Contact Name Role Phone Vernon Mercedes MD Primary Care Provider [phone] Stanislaw Rhodes MD Unavailable Unavailab Evaristo Ying MD Unavailable UnavailRaul Suresh MD Unavailable UnavailMyah Elena NP Unavailable Unavailable Deven Cleary MD Unavailable Unavailable Encounter Details Date Type Department Care Team (Late st Contact Info) Description 03/31/[address] [facility] [address] [place] [address] Vernon Mercedes MD [address] [place] [address] Social History Tobacco Use Types Packs/Day Years [...] (Late Contact Info) Description 04/25/2024 11:00 AM BENEFITS MANAGER Appointment [facility] [address] [place] [address] Ti Bonilla MD [address] [place] [phone] 05/23/2024 3:30 PM BENEFITS MANAGER [facility] [address] [place] [address] Jyoti Escobar MD [address] [place] [address] documented as of this encounter Visit Diagnoses Diagnosis Type 2 or unspecified type diabetes mellitus ([facility]/HCC HHS/HCC) documented in this encounter Additional Health Concerns Infection Onset Date Last Indicated Resolved Time MRSA Comment:Negative MRSA 05/201903/11/2017 03/11/2017 10/03/2019 10:08 AM CDT documented as of this encounter Care Teams Manager Contact Relationship Specialty Start Date End Date Vernon Mercedes MD [address] [place] [address] PCP - General FAMILY PRACTICE 10/27/15 12/02/21 [place] [address] CARDIOVASCULAR DISEASE 10/27/15 10/24/18 [place] [address] [place] Tripoler CARDIOVASCULAR DISEASE 08/19/16 [place] [address] CLINICAL CARDIAC ELECTROPHYSIOLOGY 06/16/17 Myah Handley PLASTIC [place] [address] CARDIOVASCULAR DISEASE 06/16/17 07/10/19 [place] [address] Supervisor Metal Hanging INTERVENTIONAL CARDIOLOGY 03/21/18 10/24/18 documented as of this encounter
--- OUTSIDE RECORDS SUMMARY | 2024-04-23 04:32 | XMS_ITS | Encounter Summary ---
Author Organization [facility] Address [address] [place] [address]. [place], [place] [address] [place] [address] Care Team Providers Care Sanitary Inspector Name Role Phone Vernon Mercedes MD Primary Care Provider [phone] Stanislaw Rhodes MD Unavailable Unavailab Evaristo Ying MD Unavailable UnavailRaul Suresh MD Unavailable UnavailMyah Elena NP Unavailable Unavailable Deven Cleary MD Unavailable Unavailable Encounter Details Date Type Department Care Team (Late Contact Info) Description 08/20/2014 Abstract [facility] [address] [place] [address] Danny Blackwell MD [address] [place], [place] [phone] Social History Tobacco Use Types Packs/Day Years [...] (Late Contact Info) Description 04/25/2024 11:00 AM BAG MACHINE HELPER Appointment [facility] [address] [facility] [place] [address] Ti Bonilla MD [address] [place] [phone] 05/23/2024 3:30 PM BAG MACHINE HELPER [facility] [address] [place] [address] Jyoti Escobar MD [address] [place] [address] documented as of this encounter Visit Diagnoses Diagnosis Encounter for other specified aftercare documented in this encounter Additional Health Concerns Infection Onset Date Last Indicated Resolved Time MRSA Comment:Negative MRSA 05/201903/11/2017 03/11/2017 10/03/2019 10:08 AM CDT documented as of this encounter Care Teams Sanitary Inspector Relationship Specialty Start Date End Date Vernon Mercedes MD [address] [place] [address] PCP - General FAMILY PRACTICE 10/27/15 12/02/21 [place] [address] CARDIOVASCULAR DISEASE 10/27/15 10/24/18 [place] [address] [place] Network Security Architect CARDIOVASCULAR DISEASE 08/19/16 [place] [address] CLINICAL CARDIAC ELECTROPHYSIOLOGY 06/16/17 Myah Handley, LINTING [place] [address] CARDIOVASCULAR DISEASE 06/16/17 07/10/19 [place] [address] It Data Architect INTERVENTIONAL CARDIOLOGY 03/21/18 10/24/18 documented as of this encounter
--- OUTSIDE RECORDS SUMMARY | 2024-04-23 04:32 | XMS_ITS | Encounter Summary ---
Author Organization [facility] Address [address] [place] [address]. [place] [address] [place] [address] Care Team Providers Care Automotive Customer Experience Advisor Name Role Phone Vernon Mercedes MD Primary Care Provider [phone] Stanislaw Rhodes MD Unavailable Unavailab Evaristo Ying MD Unavailable UnavailRaul Suresh MD Unavailable Unavailabl Myah Gee NP Unavailable Unavailable Encounter Details Date Type Department Care Team (Latest Contact Info) Description 1960 Abstract [facility] Social History Tobacco Use [...] st Contact Info) Description 04/25/2024 11:00 AM ORTHOPEDIC MECHANIC Appointment [facility] [place] [address] Ti Boinlla MD [address] [place] [phone] 05/23/2024 3:30 PM ORTHOPEDIC MECHANIC Office Visit [facility] [address] [place] [phone] Jyoti Escobar MD [address] [place] [address] documented as of this encounter Visit Diagnoses Not on filedocumented in this encounter Additional Health Concerns Infection Onset Date Last Indicated Resolved Time MRSA Comment:Negative MRSA 05/201903/11/2017 03/11/2017 10/03/2019 10:08 AM CDT documented as of this encounter Care Teams Automotive Customer Experience Advisor Relationship Specialty Start Date End Date Vernon Mercedes MD [address] [place] [address] PCP - General FAMILY PRACTICE 10/27/15 12/02/21 Stanis[place] [address] CARDIOVASCULAR DISEASE 10/27/15 10/24/18 Evar[place] [address] [place] Manager Group Home CARDIOVASCULAR DISEASE 08/19/16 Raul [place] [address] CLINICAL CARDIAC ELECTROPHYSIOLOGY 06/16/17 Myah Handley, [place] [address] [address] CARDIOVASCULAR DISEASE 06/16/17 07/10/19 documented as of this encounter
--- OUTSIDE RECORDS SUMMARY | 2024-04-23 04:32 | XMS_ITS | Encounter Summary ---
Author Organization [facility] Address [address] [place] [address]. [place] [address] [place] [address] Care Team Providers Care Cinder Pitman Name Role Phone Vernon Mercedes MD Primary Care Provider [phone] Stanislaw Rhodes MD Unavailable Unavailab Evaristo Ying MD Unavailable UnavailRaul Suresh MD Unavailable Unavailabl Myah Gee NP Unavailable Unavailable Encounter Details Date Type Department Care Team (Latest Contact Info) Description 04/01/2014 Abstract [facility] Medical Group Social History Tobacco Use Types [...] st Contact Info) Description 04/25/2024 11:00 AM PARTY HOST/HOSTESS Appointment [facility] [place] [address] Ti Bonilla MD [address] [place] [phone] 05/23/2024 3:30 PM PARTY HOST/HOSTESS Office Visit [facility] [address] [place] [phone] Jyoti Escobar MD [address] [place] [address] documented as of this encounter Visit Diagnoses Not on filedocumented in this encounter Additional Health Concerns Infection Onset Date Last Indicated Resolved Time MRSA Comment:Negative MRSA 05/201903/11/2017 03/11/2017 10/03/2019 10:08 AM CDT documented as of this encounter Care Teams Cinder Pitman Relationship Specialty Start Date End Date Vernon Mercedes MD [address] [place] [address] PCP - General FAMILY PRACTICE 10/27/15 12/02/21 Stanislaw [place] [address] CARDIOVASCULAR DISEASE 10/27/15 10/24/18 Evar[place] [address] [place] [employer] 7 8 Tutor CARDIOVASCULAR DISEASE 08/19/16 Raul [place] [address] [address] CLINICAL CARDIAC ELECTROPHYSIOLOGY 06/16/17 [place] [address] [address] CARDIOVASCULAR DISEASE 06/16/17 07/10/19 documented as of this encounter
--- OUTSIDE RECORDS SUMMARY | 2024-04-23 04:32 | XMS_ITS | Encounter Summary ---
Author Organization [facility] Address [address] [place] [address]. [place], [place] [address] [place] [address] Care Team Providers Care Business Excellence Manager Name Role Phone Vernon Mercedes MD Primary Care Provider [phone] Stanislaw Rhodes MD Unavailable Unavailab Evaristo Ying MD Unavailable UnavailRaul Suresh MD Unavailable UnavailMyah Elena NP Unavailable Unavailable Deven Cleary MD Unavailable Unavailable Encounter Details Date Type Department Care Team (Late st Contact Info) Description 02/22/2011 Abstract [facility] [address] [place] [address] Vernon Mercedes MD [address] [place] [phone] Social History Tobacco Use Types Packs/Day Years [...] Contact Info) Description 04/25/2024 11:00 AM CHIEF DIGITAL MEDIA OFFICER Appointment [facility] [address] [place] [address] Ti Bonilla MD [address] [place] [phone] 05/23/2024 3:30 PM CHIEF DIGITAL MEDIA OFFICER [facility] [address] [place] [phone] Jyoti Escobar MD [address] [place] [address] documented as of this encounter Visit Diagnoses Diagnosis Pain in soft tissues of limb Pain in limb documented in this encounter Additional Health Concerns Infection Onset Date Last Indicated Resolved Time MRSA Comment:Negative MRSA 05/201903/11/2017 03/11/2017 10/03/2019 10:08 AM CDT documented as of this encounter Care Teams Business Excellence Manager Relationship Specialty Start Date End Date Vernon Mercedes MD [address] [place] [phone] PCP - General FAMILY PRACTICE 10/27/15 12/02/21 [place] [phone] CARDIOVASCULAR DISEASE 10/27/15 10/24/18 [place] [phone] [place] Contracts Advisor CARDIOVASCULAR DISEASE 08/19/16 [place] [phone] CLINICAL CARDIAC ELECTROPHYSIOLOGY 06/16/17 Myah Handley [place] [phone] CARDIOVASCULAR DISEASE 06/16/17 07/10/19 [place] [phone] Nodulizer INTERVENTIONAL CARDIOLOGY 03/21/18 10/24/18 documented as of this encounter
--- OUTSIDE RECORDS SUMMARY | 2024-04-23 04:32 | XMS_ITS | Encounter Summary ---
Author Organization [facility] Address [address] [place] [address]. [place], [place] [address] [place] [address] Care Team Providers Care Tube Splicer Name Role Phone Vernon Mercedes MD Primary Care Provider [phone] Stanislaw Rhodes MD Unavailable Unavailab Elza Ying MD Unavailable Unavailabl Raul Duran MD Unavailable Unavailabl Myah Gee NP Unavailable Unavailable Encounter Details Date Type Department Care Team (Latest Contact Info) Description 07/24/2014 Abstract [facility] Danny Steiner MD [address] [place] [address] Social History Tobacco Use Types Packs/Day [...] Contact Info) Description 04/25/2024 11:00 AM TECHNICAL DATA ANALYST Appointment [facility] [place] [address] Ti Bonilla MD [address] [place] [phone] 05/23/2024 3:30 PM TECHNICAL DATA ANALYST Office Visit [facility] [address] [place] [phone] Jyoti Escobar MD [address] [place] [address] documented as of this encounter Procedures Procedure Name Priority Date/Time Associated Diagnosis Comments MRI KNEE LT WO CON Routine 07/24/2014 9: 04 AM CDT documented in this encounter Results * MRI KNEE LT WO CON (07/24/2014 9:04 AM CDT) Anatomical Region Laterality Modality Knee Magnetic Resonan ce 07/24/2014 9:04 AM CDT 07/24/2014 9:04 AM CDT Narrative 07/24/2014 9:25 AM CDT [facility] ?? [address] [place] [address] ?? [place] ? Patient Name: ELZA MCKEON Date of : 1960 ?? Med Rec #: [id number] ??Age/Sex: 54/M ?Pt. Location: MRI ?? Attending Provider: DANNY STEINER MD (TRACY) ?? Ordering Provider: DANNY SETINER MD (TRACY) ? Study Date Order Number Procedure ?? 07/24/14 [id number] MRI Knee WO Lt ? Signed ? Exam: MRI left knee ? No comparison ? Indication: Multiple falls, pain and swelling. ? Technique: Noncontrast multiplanar multisequence imaging. ? Findings: Large joint effusion. There is small rounded focus of subcortical bone marrow edema ?? in the medial femoral condyle could be reactive secondary to adjacent osteoarthritis or other ?? abnormalities. There is some articular cartilage thinning in the medial compartment consistent ?? with osteoarthritis. Motion artifact. Small popliteal cyst measuring about 1 x 2 cm. ? Allowing for the motion, there is some mild heterogeneous high signal within the mid to distal ?? anterior cruciate ligament. This could be due to partial tear or degeneration. The ligament ?? appears intact. Posterior cruciate ligament has a normal appearance. The lateral collateral ?? ligament complex has a normal appearance. The medial collateral ligament appears intact, but ?? there is some abnormal signal along it probably indicative of a partial tear. ? The lateral meniscus has a normal appearance. There is a complex tear of the body and ?? posterior horn on the medial side. ? Impression: ?? 1. Joint effusion. ?? 2. Mild osteoarthritis. ?? 3. Medial meniscal tear. ? Electronically Signed By: ANISA SON MD 07/24/14921 ? Dictated On: 07/24/14903 ?? Interpreted By: ANISA SON MD ?? Transcribed On: 07/24/14903 - INF[facility] ?? Procedure Note Stephani Luz MD - 02/09/[address] Patient Name: ELZA MCKEON Date of : 1960 Med Rec #: [id number] Age/Sex: 54/M Pt. Location: MRI Attending Provider: DANNY STEINER MD (TRACY) Ordering Provider: DANNY STEINER MD (TRACY) Study Date Order Number Procedure 07/24/14 [id number] MRI Knee WO Lt Signed Exam: MRI left knee No comparison Indication: Multiple falls, pain and swelling. Technique: Noncontrast multiplanar multisequence imaging. Findings: Large joint effusion. There is small rounded focus ofsubcortical bone marrow edema in the medial femoral condyle could be reactive secondary to adjacentosteoarthritis or other abnormalities. There is some articular cartilage thinning in the medialcompartment consistent with osteoarthritis. Motion artifact. Small popliteal cyst measuringabout 1 x 2 cm. Allowing for the motion, there is some mild heterogeneous high signalwithin the mid to distal anterior cruciate ligament. This could be due to partial tear ordegeneration. The ligament appears intact. Posterior cruciate ligament has a normal appearance. Thelateral collateral ligament complex has a normal appearance. The medial collateral ligamentappears intact, but there is some abnormal signal along it probably indicative of a partialtear. The lateral meniscus has a normal appearance. There is a complex tear ofthe body and posterior horn on the medial side. Impression: 1. Joint effusion. 2. Mild osteoarthritis. 3. Medial meniscal tear. Electronically Signed By: ANISA SON MD 07/24/14921 Dictated On: 07/24/14903 Interpreted By: ANISA SON MD Transcribed On: 07/24/14903 - [facility] Danny Steiner MD MRI Final Result documented in this encounter Visit Diagnoses Not on filedocumented in this encounter Additional Health Concerns Infection Onset Date Last Indicated Resolved Time MRSA Comment:Negative MRSA 05/201903/11/2017 03/11/2017 10/03/2019 10:08 AM CDT documented as of this encounter Care Teams Tube Splicer Relationship Specialty Start Date End Date Vernon Mercedes MD [address] [place] [phone] PCP - General FAMILY PRACTICE 10/27/15 12/02/21 [place] [place] [phone] CARDIOVASCULAR DISEASE 10/27/15 10/24/18 El[place] [address] [phone] [place] Content Publisher CARDIOVASCULAR DISEASE 08/19/16 Raul [place] [address] [phone] CLINICAL CARDIAC ELECTROPHYSIOLOGY 06/16/17 [place] [address] [phone] CARDIOVASCULAR DISEASE 06/16/17 07/10/19 documented as of this encounter
--- OUTSIDE RECORDS SUMMARY | 2024-04-23 04:32 | XMS_ITS | Encounter Summary ---
Author Organization [facility] Address [address] [place] [address]. [place], [place] [address] [place] [address] Care Team Providers Care Manager Visual Name Role Phone Vernon Mercedes MD Primary Care Provider [phone] Stanislaw Rhodes MD Unavailable Unavailab Evaristo Ying MD Unavailable UnavailRaul Suresh MD Unavailable UnavailMyah Elena NP Unavailable Unavailable Encounter Details Date Type Department Care Team (Late st Contact Info) Description 03/26/2014 Abstract [facility] [address] [facility], 2nd [place] [address] Mendel Carver DO [address] [place] [address] Social History Tobacco Use Types Packs/Day Years Used Date Smoking Tobacco: Never Assessed Sex and Gender Information Value Date Recorded Sex Assigned at Not on file Legal Sex Male 10:30 AM CDT Gender Identity Not on file Sexual Orientation Not on file documented as of this encounter Last Filed Vital Signs Vital Sign Reading Time Taken Comments Blood Pressure 140/90 03/26/2014 2:10 PM FORESTRY ADVISER Pulse - - Temperature - - Respiratory Rate - - Oxygen Saturation - - Inhaled Oxygen Concentration - - Weight 131.5 kg (290 lb) 03/26/2014 2:10 PM FORESTRY ADVISER Height 177.8 cm (5' 10 ) 03/26/2014 2:10 PM FORESTRY ADVISER Body Mass Index 41.61 03/26/2014 2:10 PM FORESTRY ADVISER documented in this encounter Progress Notes * Mendel Carver, DO - 03/26/2014 3:30 PM CST Reason For Visit Reason For Visit: Consultation Visit Chief Complaint Chief Complaint: Umbilical hernia; Review of Systems Complete-Male: Constitutional: negative. Eyes: negative. ENT: negative. Cardiovascular: negative. Respiratory: negative. Gastrointestinal: as noted in HPI. Genitourinary: negative. Musculoskeletal: negative. Integumentary and Breasts: negative. Neurological: negative. Psychiatric: negative. Endocrine: negative. Hematologic and Lymphatic: negative. Active Problems 1. Abdominal pain (789.00) (R10.9) 2. Diabetes (250.00) (E11.9) 3. Heartburn (787.1) (R12) 4. Hypertension (401.9) (I10) Surgical History 1. History of Knee Replacement Family History Mother 1. Family history of hypertension (V17.49) (Z82.49) Social History ?? Never a smoker (V49.89) (Z78.9) Current Meds 1. Atenolol TABS; Therapy: (Recorded:[id number]) to Recorded Dispense: 0 Days ; #: Sufficient TABS; Refill: 0; UNA = N; Record; Last Updated By: Janeen Rodriguez;03/26/2014 2:15:11 PM 2. Levemir 100 UNIT/ML Subcutaneous Solution; Therapy: (Recorded:[id number]) to Recorded Dispense: 0 Days ; #: Sufficient SOLN; Refill: 0; UNA = N; Record; Last Updated By: Janeen Rodriguez;03/26/2014 2:15:12 PM 3. MetFORMIN HCl TABS; Therapy: (Recorded:[id number]) to Recorded Dispense: 0 Days ; #: Sufficient TABS; Refill: 0; UNA = N; Record; Last Updated By: Janeen Rodriguez;03/26/2014 2:15:13 PM 4. Naprosyn TABS; Therapy: (Recorded:[id number]) to Recorded Dispense: 0 Days ; #: Sufficient TABS; Refill: 0; UNA = N; Record; Last Updated By: Janeen Rodriguez;03/26/2014 2:15:14 PM 5. Ranitidine HCl TABS; Therapy: (Recorded:[id number]) to Recorded Dispense: 0 Days ; #: Sufficient TABS; Refill: 0; UNA = N; Record; Last Updated By: Janeen Rodriguez;03/26/2014 2:15:15 PM 6. Tamsulosin HCl - 0.4 MG Oral Capsule; Therapy: (Recorded:[id number]) to Recorded Dispense: 0 Days ; #: Sufficient CAPS; Refill: 0; UNA = N; Record; Last Updated By: Janeen Rodriguez;03/26/2014 2:15:15 PM 7. TraMADol HCl TABS; Therapy: (Recorded:[id number]) to Recorded Dispense: 0 Days ; #: Sufficient TABS; Refill: 0; UNA = N; Record; Last Updated By: Janeen Rodriguez;03/26/2014 2:15:16 PM Allergies 1. Tetracyclines Recorded By: Janeen Rodriguez; 03/26/2014 2:15:17 PM Vitals Vital Signs [Data Includes: Current Encounter] Recorded by : Janeen Rodriguez at [id number] 02:10PM Systolic 140 Diastolic 90 Height 5 ft 10 in Weight 290 lb BMI Calculated 41.61 BSA Calculated 2.44 Physical Exam Constitutional - General appearance: No acute distress, well appearing and well nourished. Cardiovascular - Examination of extremities for edema and/or varicosities: Normal. Pulmonary - Respiratory effort: Normal. Auscultation of lungs: Normal. Abdomen - Abdomen: Non-tender, no masses. Reducible UH; tender; no rebound or guarding; no FW;. Liver and spleen: No hepatomegaly or splenomegaly. Lymphatic - Palpation of lymph nodes: No lymphadenopathy. Skin - Skin and subcutaneous tissue: Normal without rashes or lesions. Palpation of skin and subcutaneous tissue: Normal turgor. Neurologic - Sensation: Normal. Deep tendon reflexes: Normal. Psychiatric - Orientation to person, place, and time: Normal. Mood and affect: Normal. Assessment 1. Abdominal pain (789.00) (R10.9) 2. Never a smoker (V49.89) (Z78.9) 3. Recurrent ventral incisional hernia (553.21) (K43.2) Discussion/Summary Discussion Summary Free Text: Evaristo is a pleasant 54 yo male with a recurrent umbilical / incisional hernia; he had this fixed roughly ten years ago, but the repair did not hold; given this, I have recommended a laparoscopic repair; we discussed the risks and benefits of this, as well as the non-surgical options; he verbalized understanding, and would like to proceed; he is tentatively scheduled for 04[facility]16[facility]14, at [facility]; Signatures Electronically signed by : Mendel Carver D.O.; Mar 26 2014 2:22PM FORESTRY ADVISER (Author) documented in this encounter Plan of Treatment Upcoming Encounters Date Type Department Care Team (Late st Contact Info) Description 04/25/2024 11:00 AM FORESTRY ADVISER Appointment [facility] [address] [place], [place] [phone] Ti Bonilla MD [address] [place] [phone] 05/23/2024 3:30 PM FORESTRY ADVISER Office Visit [facility] [address] [place] [phone] Jyoti Escobar MD [address] [place] [address] documented as of this encounter Visit Diagnoses Not on filedocumented in this encounter Additional Health Concerns Infection Onset Date Last Indicated Resolved Time MRSA Comment:Negative MRSA 05/201903/11/2017 03/11/2017 10/03/2019 10:08 AM CDT documented as of this encounter Care Teams Manager Visual Relationship Specialty Start Date End Date Vernon Mercedes MD [address] [place] [phone] PCP - General FAMILY PRACTICE 10/27/15 12/02/21 Stanislaw Rhodes MD [address] [place] [address] CARDIOVASCULAR DISEASE 10/27/15 10/24/18 Evaristo Allan MD [address] [place] [address] [place] Coin Machine Collector CARDIOVASCULAR DISEASE 08/19/16 Raul Santana MD [address] [place] [address] CLINICAL CARDIAC ELECTROPHYSIOLOGY 06/16/17 Myah Handley NP [address] [place] [phone] CARDIOVASCULAR DISEASE 06/16/17 07/10/19 documented as of this encounter
--- OUTSIDE RECORDS SUMMARY | 2024-04-23 04:32 | XMS_ITS | Encounter Summary ---
Author Organization [facility] Address [address] [place] [address]. [place], [place] [address] [place] [address] Care Team Providers Care Wet End Supervisor Name Role Phone Vernon Mercedes MD Primary Care Provider [phone] Stanislaw Rhodes MD Unavailable Unavailab Evaristo Ying MD Unavailable UnavailRaul Suresh MD Unavailable Unavailabl Myah Gee NP Unavailable Unavailable Deven Cleary MD Unavailable Unavailable Encounter Details Date Type Department Care Team (Late Contact Info) Description 06/19/2014 Abstract [facility] [address] [place] [address] Social History Tobacco Use Types Packs/Day Years [...] (Late Contact Info) Description 04/25/2024 11:00 AM TAXI TRUCK DRIVER Appointment [facility] [address] [place] [address] Ti Bonilla MD [address] [place] [phone] 05/23/2024 3:30 PM TAXI TRUCK DRIVER Office Visit [facility] [address] [place] [phone] Jyoti Escobar MD [address] [place] [address] documented as of this encounter Visit Diagnoses Diagnosis Pain in joint, lower leg documented in this encounter Additional Health Concerns Infection Onset Date Last Indicated Resolved Time MRSA Comment:Negative MRSA 05/201903/11/2017 03/11/2017 10/03/2019 10:08 AM CDT documented as of this encounter Care Teams Wet End Supervisor Relationship Specialty Start Date End Date Venron Mercedes MD [address] [place] [address] PCP - General FAMILY PRACTICE 10/27/15 12/02/21 [place] [address] CARDIOVASCULAR DISEASE 10/27/15 10/24/18 [place] [address] [place] Belt Notcher CARDIOVASCULAR DISEASE 08/19/16 [place] [address] CLINICAL CARDIAC ELECTROPHYSIOLOGY 06/16/17 [place] [place] [address] CARDIOVASCULAR DISEASE 06/16/17 07/10/19 [place] [address] [place] INTERVENTIONAL CARDIOLOGY 03/21/18 10/24/18 documented as of this encounter
--- OUTSIDE RECORDS SUMMARY | 2024-04-23 04:32 | XMS_ITS | Encounter Summary ---
Author Organization [facility] Address [address] [place] [address]. [place], [place] [address] [place] [address] Care Team Providers Care Software Maintenance Engineer Name Role Phone Vernon Mercedes MD Primary Care Provider [phone] Stanislaw Rhodes MD Unavailable Unavailab Evaristo Ying MD Unavailable Unavailabl Raul Duran MD Unavailable Unavailabl Myah eGe NP Unavailable Unavailable Encounter Details Date Type Department Care Team (Latest Contact Info) Description 08/23/2014 Abstract [facility] Danny Blackwell MD [address] [place] [address] Social History Tobacco Use Types Packs/Day [...] st Contact Info) Description 04/25/2024 11:00 AM ARMATURE WINDER Appointment [facility] [place] [address] Ti Bonilla MD [address] [place] [phone] 05/23/2024 3:30 PM ARMATURE WINDER Office Visit [facility] [address] [place] [phone] Jyoti Escobar MD [address] [place] [address] documented as of this encounter Visit Diagnoses Not on filedocumented in this encounter Additional Health Concerns Infection Onset Date Last Indicated Resolved Time MRSA Comment:Negative MRSA 05/201903/11/2017 03/11/2017 10/03/2019 10:08 AM CDT documented as of this encounter Care Teams Software Maintenance Engineer Relationship Specialty Start Date End Date Vernon Mercedes MD [address] [place] [address] PCP - General FAMILY PRACTICE 10/27/15 12/02/21 Stanislaw Rhodes MD [address] [place] [address] CARDIOVASCULAR DISEASE 10/27/15 10/24/18 Evaristo Allan MD [address] [place] [address] [place] Chassis Mechanic CARDIOVASCULAR DISEASE 08/19/16 Raul Santana MD [address] [place] [address] CLINICAL CARDIAC ELECTROPHYSIOLOGY 06/16/17 Myah Handley NP [address] [place] [address] CARDIOVASCULAR DISEASE 06/16/17 07/10/19 documented as of this encounter
--- OUTSIDE RECORDS SUMMARY | 2024-04-23 04:32 | XMS_ITS | Encounter Summary ---
Author Organization [facility] Address [address] [place] [address]. [place] [address] [place] [address] Care Team Providers Care Credit Union Field Examiner Name Role Phone Vernon Mercedes MD Primary Care Provider [phone] Stanislaw Rhodes MD Unavailable Unavailab Evaristo Ying MD Unavailable UnavailRaul Suresh MD Unavailable UnavailMyah Elena NP Unavailable Unavailable Deven Cleary MD Unavailable Unavailable Encounter Details Date Type Department Care Team (Late Contact Info) Description 03/29/2012 Abstract [facility] [address] [place] [address] Bettye Coyle MD [address] [place] [address] Social History Tobacco Use Types [...] (Late Contact Info) Description 04/25/2024 11:00 AM SUPERVISOR NEWSPAPER DELIVERIES Appointment [facility] [address] [place] [place] [address] Ti Bonilla MD [address] [place] [phone] 05/23/2024 3:30 PM SUPERVISOR NEWSPAPER DELIVERIES Office Visit [facility] [address] [place] [address] Jyoti Escobar MD [address] [place] [address] documented as of this encounter Visit Diagnoses Diagnosis Pain in joint, ankle and foot documented in this encounter Additional Health Concerns Infection Onset Date Last Indicated Resolved Time MRSA Comment:Negative MRSA 05/201903/11/2017 03/11/2017 10/03/2019 10:08 AM CDT documented as of this encounter Care Teams Credit Union Field Examiner Relationship Specialty Start Date End Date Vernon Mercedes MD [address] [place] [address] PCP - General FAMILY PRACTICE 10/27/15 12/02/21 [place] [address] CARDIOVASCULAR DISEASE 10/27/15 10/24/18 [place] [address] [place] Information Systems Technician CARDIOVASCULAR DISEASE 08/19/16 [place] [address] CLINICAL CARDIAC ELECTROPHYSIOLOGY 06/16/17 Myah Handley CHAINSTITCH FELLED [place] [address] CARDIOVASCULAR DISEASE 06/16/17 07/10/19 [place] [address] Integration Aide INTERVENTIONAL CARDIOLOGY 03/21/18 10/24/18 documented as of this encounter
--- OUTSIDE RECORDS SUMMARY | 2024-04-23 04:32 | XMS_ITS | Encounter Summary ---
Author Organization [facility] Address [address] [place] [address]. [place] [address] Care Team Providers Care Fitness Technician Name Role Phone Vernon Mercedes MD Primary Care Provider [phone] Stanislaw Rhodes MD Unavailable Unavailab Evaristo Ying MD Unavailable UnavailRaul Suresh MD Unavailable Unavailabl Myah Gee NP Unavailable Unavailable Encounter Details Date Type Department Care Team (Late st Contact Info) Description 07/31/2014 Abstract [facility] [address] [place] [address] Danny Blackwell MD [address] [place], [place] [id number] Social History Tobacco Use Types Packs/Day Years Used Date Smoking Tobacco: Never Assessed Sex and Gender Information Value Date Recorded Sex Assigned at Not on file Legal Sex Male 10:30 AM CDT Gender Identity Not on file Sexual Orientation Not on file documented as of this encounter Progress Notes * Danny Blackwell MD - 07/31/2014 4:15 PM CDT Referred By / Reason Patient was referred by Primary Care Physician LDV by PCP: Name: Dr. Mercedes Reason: Chief Complaint Chief Complaint: The patient presents to the office today with LEFT knee pain. History of Present Illness Patient returns to clinic in follow up forhis LEFT knee MRI. He is wearing a knee brace today. He reprots LEFT knee pain that keeps him awake at night. He also is still reporting swelling. He states he has LEFT knee pain with activity that limits his daily activities. PREVIOUS [id number] Patient presents to clinic today with complaints of BILATERAL knee pain. He states that his LEFT hurts worse than his RIGHT. He injured his knees on 06-18-2014 when he fell onthe ice. He reports that he has had [...] Amoxicillin-Pot Clavulanate 875-125 MG Oral Tablet; Therapy: [id number] to Recorded 2. Atenolol TABS; Therapy: (Recorded:[id number]) to Recorded 3. Atorvastatin Calcium 40 MG Oral Tablet; Therapy: 26Jun2014 to Recorded 4. HumaLOG 100 UNIT/ML Subcutaneous Solution; Therapy: 71Lzk3051 to Recorded 5. Hydrocodone-Acetaminophen 5-325 MG Oral Tablet; Therapy: 19Jun2014 to Recorded 6. Hydrocodone-Acetaminophen 7.5-325 MG Oral Tablet; Therapy: 01Agb5070 to Recorded 7. Levemir 100 UNIT/ML Subcutaneous Solution; Therapy: (Recorded:[id number]) to Recorded 8. MetFORMIN HCl TABS; Therapy: (Recorded:27Ooi5825) to Recorded 9. Naprosyn TABS (Naproxen); Therapy: (Recorded:[id number]) to Recorded 10. Oxybutynin Chloride 5 MG Oral Tablet; Therapy: 21Jun2014 to Recorded 11. Ranitidine HCl TABS; Therapy: (Recorded:59Qzr2459) to Recorded 12. Sure Comfort Insulin Syringe 31G X 5/16 0.3 ML Miscellaneous; Therapy: 15Oct2013 to Recorded 13. Sure Comfort Insulin Syringe 31G X 5/16 1 ML Miscellaneous; Therapy: 02Jul2014 to Recorded 14. Tamsulosin HCl - 0.4 MG Oral Capsule; Therapy: (Recorded:[id number]) to Recorded 15. TraMADol HCl TABS; Therapy: (Recorded:[id number]) to Recorded 16. TRUEplus Lancets 28G Miscellaneous; Therapy: 81Soi2368 to Recorded Allergies 1. Tetracyclines Physical Exam [...] lower extremity. Left Knee: EXAM today reveals medial joint line tenderness Results/Data MRI was reviewed and discussed with patient and demonstrates a medial meniscus tear. Assessment 1. Derangement of medial meniscus, left (717.3) (M23.301,M23.304,M23.307) Plan He will return in 2 weeks after his LEFT knee arthroscopy. The planned procedure/s, the expected benefits,the associated risks,possible complications, and alternatives to the procedure/s have been discussed in detail with the patient or family. They state that they understand, have no further questions and agree to proceed with the procedure/s as outlined. Procedures/Surgery: 08/07/2014 LEFT knee arthroscopy Signatures Electronically signed by : Danny Blackwell M.D.; Jul 31 2014 4:37PM GARDEN IMPLEMENT MECHANIC (Author) documented in this encounter Plan of Treatment Upcoming Encounters Date Type Department Care Team (Late st Contact Info) Description 04/25/2024 11:00 AM GARDEN IMPLEMENT MECHANIC Appointment [facility] [address] [place] [address] Ti Bonilla MD [address] [place] [phone] 05/23/2024 3:30 PM GARDEN IMPLEMENT MECHANIC Office Visit [facility] [address] [place] [address] Jyoti Escobar MD [address] [place] [phone] documented as of this encounter Visit Diagnoses Not on filedocumented in this encounter Additional Health Concerns Infection Onset Date Last Indicated Resolved Time MRSA Comment:Negative MRSA 05/201903/11/2017 03/11/2017 10/03/2019 10:08 AM CDT documented as of this encounter Care Teams Fitness Technician Relationship Specialty Start Date End Date Vernon Mercedes MD [address] [place] [address] PCP - General FAMILY PRACTICE 10/27/15 12/02/21 [place] [address] CARDIOVASCULAR DISEASE 10/27/15 10/24/18 [place] [address] [place] Diamond Selector CARDIOVASCULAR DISEASE 08/19/16 [place] [address] CLINICAL CARDIAC ELECTROPHYSIOLOGY 06/16/17 Myah Handley, INSULATION BOARD BACK TENDER [address] [place] [address] CARDIOVASCULAR DISEASE 06/16/17 07/10/19 documented as of this encounter
--- OUTSIDE RECORDS SUMMARY | 2024-04-23 04:32 | XMS_ITS | Encounter Summary ---
Author Organization [facility] Address [address] [place] [address]. [place] [address] [place] [address] Care Team Providers Care Commercial Lending Assistant Name Role Phone Vernon Mercedes MD Primary Care Provider [phone] Stanislaw Rhodes MD Unavailable Unavailab Evaristo Ying MD Unavailable UnavailRaul Suresh MD Unavailable UnavailMyah Elena NP Unavailable Unavailable Deven Cleary MD Unavailable Unavailable Encounter Details Date Type Department Care Team (Late Contact Info) Description 07/14/2012 Abstract [facility] [address] [place] [address] Bettye Coyle MD [address] [place] [address] Social History Tobacco Use Types [...] (Late Contact Info) Description 04/25/2024 11:00 AM SMOKING TOBACCO PACKER HAND Appointment [facility] [address] [place] [address] Ti Bonilla MD [address] [place] [phone] 05/23/2024 3:30 PM SMOKING TOBACCO PACKER HAND Office Visit [facility] [address] [place] [address] Jyoti Escoabr MD [address] [place] [address] documented as of this encounter Visit Diagnoses Diagnosis Pain in joint, lower leg documented in this encounter Additional Health Concerns Infection Onset Date Last Indicated Resolved Time MRSA Comment:Negative MRSA 05/201903/11/2017 03/11/2017 10/03/2019 10:08 AM CDT documented as of this encounter Care Teams Commercial Lending Assistant Relationship Specialty Start Date End Date Vernon Mercedes MD [address] [place] [address] PCP - General FAMILY PRACTICE 10/27/15 12/02/21 [place] [address] CARDIOVASCULAR DISEASE 10/27/15 10/24/18 [place] [address] [place] Museum Attendant CARDIOVASCULAR DISEASE 08/19/16 [place] [address] CLINICAL CARDIAC ELECTROPHYSIOLOGY 06/16/17 Myah Handley ROLL [place] [address] CARDIOVASCULAR DISEASE 06/16/17 07/10/19 [place] [address] Factory Lay Out Engineer INTERVENTIONAL CARDIOLOGY 03/21/18 10/24/18 documented as of this encounter
--- OUTSIDE RECORDS SUMMARY | 2024-04-23 04:32 | XMS_ITS | Encounter Summary ---
Author Organization [facility] Address [address] [place] [address]. [place], [place] [address] [place] [address] Care Team Providers Care Technical Services Manager Name Role Phone Vernon Mercedes MD Primary Care Provider [phone] Stanislaw Rhodes MD Unavailable Unavailab Evaristo Ying MD Unavailable UnavailRaul Suresh MD Unavailable UnavailMyah Elena NP Unavailable Unavailable Encounter Details Date Type Department Care Team (Late st Contact Info) Description 08/20/2014 Abstract [facility] [address] [place] [address] Danny Blackwell MD [address] [place], [place] [phone] Social History Tobacco Use Types Packs/Day Years Used Date Smoking Tobacco: Never Assessed Sex and Gender Information Value Date Recorded Sex Assigned at Not on file Legal Sex Male 10:30 AM CDT Gender Identity Not on file Sexual Orientation Not on file documented as of this encounter Progress Notes * Danny Blackwell MD - 08/20/2014 11:00 AM CDT Post-Op Evaristo Zelaya is status post lateral meniscectomy of the left knee on 08/07/2014. 2 weeks post op. Patient is walking with a slight limp. He states his preoperative symptoms have improved. HPI: The patient reports no excessive pain, no swelling, no calf swelling and no leg pain. The patient also reports weight-bearing as tolerated, but not using an assistive device for ambulation. PE: The knee demonstrates no warmth, no erythema and no swelling . Small effusion. Mild stiffness, portals OK, limp. Tests for DVT and compartment syndrome reveal no calf swelling and no calf tenderness. Peripheral neurovascular exam reveals intact sensation to light touch and intact gross motor function. Assessment: Post-op, the patient is doing well, has excellent pain control and is showing no signs of infection. Plan: Activity Restrictions: Advance as tolerated. PT Referral: for 4 weeks . I hereby certify that these services are medically necessary. Follow up: 2 weeks. Assessment 1. Aftercare following surgery (V58.89) (Z48.89) '''School / Work Excuse''' Return to School - Work: Evaristo Zelaya may return to work. Evaristo can return with limitations. Light duty only. Signatures Electronically signed by : Danny Blackwell M.D.; Aug 20 2014 2:25PM SENIOR BEHAVIORAL SCIENTIST (Author) documented in this encounter Plan of Treatment Upcoming Encounters Date Type Department Care Team (Late st Contact Info) Description 04/25/2024 11:00 AM SENIOR BEHAVIORAL SCIENTIST Appointment [facility] [address] [place] [address] [place] [address] Ti Bonilla MD [address] [place] [phone] 05/23/2024 3:30 PM SENIOR BEHAVIORAL SCIENTIST Office Visit [facility] [address] [place] [address] Jyoti Escobar MD [address] [place] [address] [phone] documented as of this encounter Visit Diagnoses Not on filedocumented in this encounter Additional Health Concerns Infection Onset Date Last Indicated Resolved Time MRSA Comment:Negative MRSA 05/201903/11/2017 03/11/2017 10/03/2019 10:08 AM CDT documented as of this encounter Care Teams Technical Services Manager Relationship Specialty Start Date End Date Vernon Mercedes MD [address] [place] [address] PCP - General FAMILY PRACTICE 10/27/15 12/02/21 Stanislaw Rhodes MD [address] [place] [address] CARDIOVASCULAR DISEASE 10/27/15 10/24/18 Evaristo Allan MD [address] [place] [address] [place] Painter Mirror CARDIOVASCULAR DISEASE 08/19/16 Raul Santana MD [address] [place] [address] CLINICAL CARDIAC ELECTROPHYSIOLOGY 06/16/17 Myah Handley CERTIFIED MEDICATION TECHNICIAN [address] [place] [address] CARDIOVASCULAR DISEASE 06/16/17 07/10/19 documented as of this encounter
--- OUTSIDE RECORDS SUMMARY | 2024-04-23 04:32 | XMS_ITS | Encounter Summary ---
Author Organization [facility] Address [address] [place] [address]. [place], [place] [address] [place] [address] Care Team Providers Care Radioisotope Technologist Name Role Phone Vernon Mercedes MD Primary Care Provider [phone] Stanislaw Rhodes MD Unavailable Unavailab Evaristo Ying MD Unavailable UnavailRaul Suresh MD Unavailable UnavailMyah Elena NP Unavailable Unavailable Deven Cleary MD Unavailable Unavailable Encounter Details Date Type Department Care Team (Late st Contact Info) Description 08/07/[address] [facility] [place] [address] [place] [address] Danny Blackwell MD [address] [place] [address] Social History Tobacco Use Types Packs/Day Years [...] (Late Contact Info) Description 04/25/2024 11:00 AM PANTOGRAPH SETTER Appointment [facility] [address] [place] [address] Ti Bonilla MD [address] [place] [phone] 05/23/2024 3:30 PM PANTOGRAPH SETTER Office Visit [facility] [address] [place] [address] Jyoti Escobar MD [address] [place] [address] documented as of this encounter Visit Diagnoses Diagnosis Tear of medial cartilage or meniscus of knee, current documented in this encounter Additional Health Concerns Infection Onset Date Last Indicated Resolved Time MRSA Comment:Negative MRSA 05/201903/11/2017 03/11/2017 10/03/2019 10:08 AM CDT documented as of this encounter Care Teams Radioisotope Technologist Relationship Specialty Start Date End Date Vernon Mercedes MD [address] [place] [address] PCP - General FAMILY PRACTICE 10/27/15 12/02/21 [place] [address] CARDIOVASCULAR DISEASE 10/27/15 10/24/18 [place] [address] [place] Chemical Strength Tester CARDIOVASCULAR DISEASE 08/19/16 [place] [address] CLINICAL CARDIAC ELECTROPHYSIOLOGY 06/16/17 Myah Handley, [place] [address] CARDIOVASCULAR DISEASE 06/16/17 07/10/19 [place] [address] [employer] Media Specialist INTERVENTIONAL CARDIOLOGY 03/21/18 10/24/18 documented as of this encounter
--- OUTSIDE RECORDS SUMMARY | 2024-04-23 04:32 | XMS_ITS | Encounter Summary ---
Author Organization [facility] Address [address] [place] [address]. [place], [place] [address] [place] [address] Care Team Providers Care Arts Administrator Name Role Phone Vernon Mercedes MD Primary Care Provider [phone] Stanislaw Rhodes MD Unavailable Unavailab Evaristo Ying MD Unavailable UnavailRaul Suresh MD Unavailable UnavailMyah Elena NP Unavailable Unavailable Deven Cleray MD Unavailable Unavailable Encounter Details Date Type Department Care Team (Late Contact Info) Description 07/31/2014 Abstract [facility] [address] [place] [address] Danny Blackwell MD [address] [place], [place] [phone] Social History Tobacco Use Types Packs/Day Years [...] (Late Contact Info) Description 04/25/2024 11:00 AM SENIOR SALES ASSISTANT Appointment [facility] [address] [place] [address] Ti Bonilla MD [address] [place] [phone] 05/23/2024 3:30 PM SENIOR SALES ASSISTANT [facility] [address] [place] [address] Jyoti Escobar MD [address] [place] [address] documented as of this encounter Visit Diagnoses Diagnosis Other and unspecified derangement of medial meniscus documented in this encounter Additional Health Concerns Infection Onset Date Last Indicated Resolved Time MRSA Comment:Negative MRSA 05/201903/11/2017 03/11/2017 10/03/2019 10:08 AM CDT documented as of this encounter Care Teams Arts Administrator Relationship Specialty Start Date End Date Vernon Mercedes MD [address] [place] [address] PCP - General FAMILY PRACTICE 10/27/15 12/02/21 [place] [address] CARDIOVASCULAR DISEASE 10/27/15 10/24/18 [place] [address] [place] [employer] Teacher CARDIOVASCULAR DISEASE 08/19/16 [place] [address] CLINICAL CARDIAC ELECTROPHYSIOLOGY 06/16/17 Myah Handley, [place] [address] CARDIOVASCULAR DISEASE 06/16/17 07/10/19 [place] [address] [employer] Helper Machine INTERVENTIONAL CARDIOLOGY 03/21/18 10/24/18 documented as of this encounter
--- OUTSIDE RECORDS SUMMARY | 2024-04-23 04:32 | XMS_ITS | Encounter Summary ---
Author Organization [facility] Address [address] [place] [address]. [place] [address] [place] [address] Care Team Providers Care Carton Forming Machine Helper Name Role Phone Vernon Mercedes MD Primary Care Provider [phone] Stanislaw Rhodes MD Unavailable Unavailab Evaristo Ying MD Unavailable UnavailRaul Suresh MD Unavailable Unavailabl Myah Gee NP Unavailable Unavailable Encounter Details Date Type Department Care Team (Latest Contact Info) Description 07/19/2014 Abstract [facility] Social History Tobacco [...] Contact Info) Description 04/25/2024 11:00 AM HEAD START DIRECTOR Appointment [facility] [place] [address] Ti Bonilla MD [address] [place] [phone] 05/23/2024 3:30 PM HEAD START DIRECTOR Office Visit [facility] [address] [place] [phone] Jyoti Escobar MD [address] [place] [address] documented as of this encounter Visit Diagnoses Not on filedocumented in this encounter Additional Health Concerns Infection Onset Date Last Indicated Resolved Time MRSA Comment:Negative MRSA 05/201903/11/2017 03/11/2017 10/03/2019 10:08 AM CDT documented as of this encounter Care Teams Carton Forming Machine Helper Relationship Specialty Start Date End Date Vernon Mercedes MD [address] [place] [address] PCP - General FAMILY PRACTICE 10/27/15 12/02/21 [place] [place] [address] CARDIOVASCULAR DISEASE 10/27/15 10/24/18 Evar[place] [place] [address] [place] Manufacturing Teacher CARDIOVASCULAR DISEASE 08/19/16 Ra[place] [address] [address] CLINICAL CARDIAC ELECTROPHYSIOLOGY 06/16/17 [place] [address] [place] [address] CARDIOVASCULAR DISEASE 06/16/17 07/10/19 documented as of this encounter
--- OUTSIDE RECORDS SUMMARY | 2024-04-23 05:12 | XMS_ITS | Clinical Summary ---
Author Organization [facility] Address [address] [place] [address]. [place], [place] [id number] [place] [address] Care Team Providers Care Assembly Loader Name Role Phone Elza Allan MD Unavailable Unavailabl Raul Duran MD Unavailable Unavailabl e Danny Blackwell MD Unavailable [phone] Gayle Arce APRN, LOADER DEMOLDER-C Unavailable Ti Zamora MD Primary Care Provider Mendel Shah DPM Unavailable [phone] Jyoti Escobar MD Unavailable [phone] Allergies Active Allergy Reactions Criticality Noted [...] 30 tablet 4 4 Active Continuous Glucose International Sales Representative (FREESTYLE LI 3 READER) Device Inject 1 [...] 120 tablet 4 Active OXYGEN CONCENTRATOR SUPPLY, [facility],Indications:C HF exacerbation ([facility]/HCC HHS/[facility]) 1 Device by Nasal route continuous. 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, limited to breakdown of skin ([facility]) 11/24/2022 S/P ablation of atrial fibrillation 11/17/2021 Atrial flutter ([facility]) 11/17/2021 Microhematuria 05/19/2021 Overview (05/19/2021): Added automatically from request for surgery [id number] Neck pain 04/07/2021 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 LV systolic function is preserved. Continue aspirin statin and beta- francesca therapy. Diabetes ([facility]) 02/10/2018 Mechanical complication of i nternal orthopedic device, implant or graft, initial encounter 11/01/2016 Hyperlipidemia 08/14/2016 Assessment & Plan (12/09/2023 1:54 PM CDT): Continue statin therapy. 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 He has been on high-dose beta-francesca. Continue. If additional antihypertensives are needed, add DELICIA inhibitor. Paroxysmal atrial fibrillation ([facility] HHS/[facility]) 10/24/2015 Arthritis of knee 11/25/2014 Patella-femoral syndrome [...] Department Care Team Description 04/05/2024 12:36 PM ANTISQUEAK FILLER - 04/05/2024 11:59 PM ANTISQUEAK FILLER Hospital Encounter [facility] [address] [place] [address] Des Siegel MD Discharge Disposition: Home or Self Care (Routine Discharge) 04/05/2024 Travel 04/04/2024 10:30 AM ANTISQUEAK FILLER Telephone [facility] [address] [place] [address] Shannan Lay, ALEXANDRE Holter Monitor 03/26/2024 Telephone [facility] [address] [place] [phone] Joshua Yin MD Question; Concerns 03/22/2024 Transcribe Orders [facility] Pre Access Team [address] [place] [address] Des Siegel MD 03/22/2024 Telephone [facility] [address] [place] [phone] Joshua Yin MD Record Request 03/21/2024 Scan [facility] [address] [place] [phone] Scanned, Doc Pccl 03/20/2024 7:43 AM ANTISQUEAK FILLER - 03/20/2024 11:59 PM ANTISQUEAK FILLER Hospital Encounter [facility] [address] [place] [address] Ti Zamora MD Discharge Disposition: Home or Self Care (Routine Discharge) 03/20/2024 Travel 02/29/2024 2:00 PM ANTISQUEAK FILLER Office Visit [facility] [address] [place] [phone] Shannan Lay, ALEXANDRE Follow Up; Atrial Flutter; Atrial Fibrillation 02/29/2024 Telephone [facility] [address] [place] [phone] Gayle Arce APRN, ALEXANDRE-C Advice 02/29/2024 Travel 02/23/2024 Orders Only [facility] [address] [place] [phone] Joshua Yin MD from Last 3 Months [...] = 0.6 oz pur e alcohol) social [facility] Utilities Answer Date Recorded In the past 12 months has th e [employer], gas, oil, or water [employer] threatened to shut off services in your [...] any time in the past 12 m [facility], were you homeless or living [...] Comments Blood Pressure 110/66 02/29/2024 1:50 PM ANTISQUEAK FILLER Pulse 89 02/29/2024 1:50 PM ANTISQUEAK FILLER ekg Temperature 35.1 ??C (95.2 ??F) 12/11/2023 8:38 AM CD T Respiratory Rate 18 02/29/2024 1:50 PM ANTISQUEAK FILLER Oxygen Saturation 96% 02/29/2024 1:50 PM ANTISQUEAK FILLER Inhaled Oxygen Concentration - - Weight 133.9 kg (295 lb 3.2 oz) 02/29/2024 1:50 PM ANTISQUEAK FILLER Height 177.8 cm (5' 10 ) 02/29/2024 1:50 PM ANTISQUEAK FILLER Body Mass Index 42.36 02/29/2024 1:50 PM ANTISQUEAK FILLER Plan of Treatment Upcoming Encounters Date Type Department Care Team (Late st Contact Info) Description 04/25/2024 11:00 AM ANTISQUEAK FILLER Appoint[address] [facility] [address] [place] [address] Ti Zamora MD [address] [place] [phone] 05/23/2024 3:30 PM ANTISQUEAK FILLER Office Visit [facility] [address] [place] [phone] Jyoti Escobar MD [address] [place] [address] Health Maintenance Due Date Last Done Comments [...] home upon discharge Lifestyle No Alex Lozano, acid recovery operator - family caregiver with be involved in care transitions and discharge planning Lifestyle No Alex Lozano, RN Patient will return to prior living situation and remain independent in ADLs upon discharge from hospital Lifestyle No Alex Lozano, RN Medical Devices Implanted Type Area Skein Washer Device Identifier Shelf Expiration Date Model / Serial / Lot Stent Coronary 38mm 3.5mm Sy - [id number] Implanted:Qty: 1 on 03/24/2018 by Deven Cleary MD at [facility] Stent Coronary Clink 06/27/2018 [id number] / / [id number] Description:Synergy MARLIN to khloe he RCA Atune Pressfit Str Stem [id number] Implanted:Qty: 1 on 10/15/2019 by Danny Blackwell MD at [facility] Right: Knee 11/16/2027 [id number] / / [id number] Atun Tibial Slv M/L 29mm Full Por Implanted:Qty: 1 on 10/15/2019 by Danny Blackwell MD at [facility] Right: Knee 08/15/2029 [id number] / / [id number] Attune Rev Rp Tib Base Sz 5 Fidencio Implanted:Qty: 1 on 10/15/2019 by Danny Blackwlel MD at [facility] Right: Knee 02/14/2029 [id number] / / [id number] Attune Crs Rp Insrt Sz 5 6mm Implanted:Qty: 1 on 10/15/2019 by Danny Blackwell MD at [facility] Right: Knee 05/18/2023 [id number] / / [id number] Graft Bone Cancellous 15ml 1-10mm Freeze Dried Chips - [id number] Implanted:Qty: 1 on 10/15/2019 by Danny Blackwell MD at [facility] Right: Knee [employer] 08/13/2023 [id number] / / [id number] Cement Simplex Hv W/Gentamicin - [id number] Implanted:Qty: 1 on 10/15/2019 by Danny Blackwell MD at [facility] Right: Knee [employer] 11/15/2020 [id number] / / [id number] Cement Simplex Hv W/Gentamicin - [id number] Implanted:Qty: 1 on 10/15/2019 by Danny Blackwell MD at [facility] Right: Knee [employer] 11/15/2020 6195-1-010 / / [id number] Graft Bone Cancellous 15ml 1-10mm Freeze Dried Chips - [id number] Implanted:Qty: 1 on 10/15/2019 by Danny Blackwell MD at [facility] Right: Knee [employer] 07/24/2020 [id number] / / [id number] Atune Pressfit Str Stem Implanted:Qty: 1 on 10/15/2019 by Danny Blackwell MD at [facility] Right: Knee 05/18/2029 [id number] / / [id number] Attune Dist Fem Aug Sz 5 4 Mm Implanted:Qty: 1 on 10/15/2019 by Danny Blackwell MD at [facility] Right: Knee 09/15/2028 [id number] / / [id number] Attune Dist Fem Aug Sz 5 4 Mm Implanted:Qty: 1 on 10/15/2019 by Danny Blackwell MD at [facility] Right: Knee 09/15/2028 [id number] / / [id number] Atun Fem Slv M/L 30mm Full Por Implanted:Qty: 1 on 10/15/2019 by Danny Blackwell MD at [facility] Right: Knee 05/18/2029 [id number] / / [id number] Attune Crs Femoral Rt Sz 5 Fidencio Implanted:Qty: 1 on 10/15/2019 by Danny Blackwell MD at [facility] Right: Knee 12/16/2028 [id number] / / [id number] Explanted Type Area Skein Washer Device Identifier Shelf Expiration Date Model / Serial / Lot Drill Bit Synthes 2.5 Qc 110mm Gold - [id number] Explanted:Qty: 1 on 10/15/2019 at [facility] Right: Knee SYNTHES 310.25 / / Procedures Procedure Name Priority Date/Time Associated Diagnosis Comments PULMONARY FUNCTION TEST Routine 04/05/20 12:36 PM ANTISQUEAK FILLER Exertional shortness of breath US BLADDER Routine 03/20/2024 9:01 AM ANTISQUEAK FILLER Voiding dysfunction ELECTROCARDIOGRAM (NON MIDMARK ACQUIRED) Routine 02/29/2024 1:57 PM ANTISQUEAK FILLER Paroxysmal atrial fibrillation (CMS/HCC HHS/HCC) Atypical atrial flutter (CMS/HCC HHS/HCC) HEMOGLOBIN, GLYCOSYLATED STAT 024 2:22 PM CDT LIPID PANEL Routine 03/05/2017 9:20 AM ANTISQUEAK FILLER from Last 3 Months or Most Recently Relevant to Health Maintenance Results * Complete PFT (pre/post Mode, Lung Vol, Diff Capacity) (91151, 97116, 42636, 68890) (04/05/2024 12:36 PM ANTISQUEAK FILLER) 04/05/2024 12:3 6 PM ANTISQUEAK FILLER Narrative ESCRIPTION - 04/06/2024 6:15 PM ANTISQUEAK FILLER Patient Name: ELZA MCKEON Date of : 1960 Account: [id number] Facility: [facility] Location: [facility] Date of Service: 04/05/2024 Pulmonary [...] Sallie SIEGEL MD D: ??04/05/2024 09:52 PM ??#[id number] T: ??04/05/2024 10:00 PM ??/ABBI us Des Siegel MD PFT ORDERABLES Final Result ESCRIPTION * US BLADDER (03/20/2024 9:01 AM ANTISQUEAK FILLER) Anatomical Region Laterality Modality Renal Ultrasound 03/20/2024 9:00 AM ANTISQUEAK FILLER Impressions 03/20/2024 9:02 AM ANTISQUEAK FILLER IMPRESSION: 1. No urinary bladder mass or calculus demonstrated. 2. Bladder volumes as described. Ordered By: TI ZAMORA Interpreted By: Matteo Buenrostro MD, 03/20/2024 9:00 AM Narrative 03/20/2024 9:02 AM ANTISQUEAK FILLER [address] [place] [address] Examination: Ultrasound of the urinary bladder. Exam time: 0830 hours. Clinical history: Voiding dysfunction. Comparison: None. Technique: Grayscale and color Doppler images. Findings: Bilateral ureteral jets are demonstrated. No urinary bladder mass or calculus is demonstrated. The calculated prevoid bladder volume is approximately 116 mL. The calculated post void bladder volume is approximately 48 mL. Procedure Note Matteo Buenrostro MD - 03/20/[address] [place] [address] Examination: Ultrasound of the urinary bladder. Exam [...] Resul t * ELECTROCARDIOGRAM (02/29/2024 1:57 PM ANTISQUEAK FILLER) 02/29/2024 1:57 PM ANTISQUEAK FILLER Narrative [facility] - 03/08/2024 4:06 PM ANTISQUEAK FILLER ? [facility] ?[address], [place] ??[address] ? Test Date: ?2024-02-29 Pat Name: ? ELZA MCKEON ? Department: ?? 105 ? Room: ? Gender: ? Male ? Circulation Manager: ?? dp : ?1960 ? Requested By: JOSHUA YIN Order Number: [id number] ?Reading MD: ?? Carlos Sheth ? Measurements Intervals ?[place] ? Rate: ? 89 ? P: ?34 ID: ? [id number] ?QRS: ?78 QRSD: ? 102 ?T: ?49 QT: ? 360 ? QTc: ?440 ? Interpretive Statements SINUS RHYTHM LOW QRS VOLTAGE IN PRECORDIAL LEADS INCOMPLETE RIGHT BUNDLE BRANCH BLOCK SQUEAK FILLER Procedure Note Carlos Sheth MD - 03/08/2024 [facility] [place] [address] [place] [address] Test Date: 2024-02-29 Pat Name: [facility] Department: 105 Room: Gender: Male Circulation Manager: daniel : 1960 Requested By: JOSHUA YIN Order Number: [id number] Reading MD: Reyna Measurements Intervals [place] Rate: 89 P: 34 ID: 143 QRS: 78 QRSD: 102 T: 49 QT: 360 QTc: 440 Interpretive Statements SINUS RHYTHM LOW QRS VOLTAGE IN PRECORDIAL LEADS INCOMPLETE RIGHT BUNDLE BRANCH BLOCK SQUEAK FILLER us Joshua Yin MD PROCEDURES-ORDERABLE NO CHARGE F inal Result [facility] * (ABNORMAL) HEMOGLOBIN, GLYCATED (12/08/2023 2:22 PM CDT) HGB A1C 7.0(H) <5.7 % 12/08/2023 3:23 PM CDT [facility] ESTIMATED AVG GLUCOSE 154(H) 74 - 114 MG/DL 12/08/2023 3:23 PM CDT [facility] 12/08/2023 2:22 PM CDT Leonela Fulton [facility] Final R esult [facility] [address] [place] [address], [place] [phone] [id number] * (ABNORMAL) LIPID PANEL (03/05/2017 9:20 AM ANTISQUEAK FILLER) CHOLESTEROL 122 <200 MG/DL 03/05/2017 10:32 AM ANTISQUEAK FILLER [facility] TRIGLYCERIDES 79 <150 MG/DL 03/05/2017 10:32 AM ANTISQUEAK FILLER [facility] HDL 32(L) >40 MG/DL 03/05/2017 10:32 AM [facility] LDL (CALCULATED) 74.2 <130 MG/DL 03/05/20 17 10:32 AM [facility] Comment: AN LDL OF <100 IS OPTIMAL; HOWEVER, ELEVATED IS DEFINED >130.BY ATP III GUIDELINES, LDL GOALS ARE DEPENDENT UPON THE PATIENT'S OTHER RISK FACTORS. CHOL/HDL RATIO 3.8 0.0 - 5.0 03/05/2017 10:32 AM ANTISQUEAK FILLER [facility] 03/05/2017 9:20 AM ANTISQUEAK FILLER 03/05/2017 9:29 AM ANTISQUEAK FILLER us Generic Conversion Md [facility] Final R esult [facility] [address] [place] [address], [place] [phone] from Last 3 Months or Most Recently Relevant to Health Maintenance Insurance [facility] Advance Directives * Full Code (Latest [...] 10:25 AM 03/24/2018 4:46 PM Care Teams Assembly Loader Relationship Specialty Start Date End Date Ti Zamora MD [address] [place] [phone] PCP - General FAMILY PRACTICE 12/03/21 Elza Allan MD [place] Fire Truck Driver CARDIOVASCULAR DISEASE 08/19/16 Raul Santana MD CLINICAL CARDIAC ELECTROPHYSIOLOGY 06/16/17 Danny Blackwell MD [address] [place] [address] ORTHOPAEDIC SURGERY 05/01/19 Gayle Arce, PALEOLOGIST, LOADER DEMOLDER-C [address] [facility] [address] [place] [address] NURSE PRACTITIONER 03/03/20 Mendel Shah DPM [address] [place] [address] Consulting Physician PODIATRY/SURGERY 06/27/23 06/26/24 Jyoti Escobar MD [address] [place] [address] INTERVENTIONAL CARDIOLOGY 12/27/23
--- OUTSIDE RECORDS SUMMARY | 2024-04-23 05:12 | XMS_ITS | Encounter Summary ---
Author Organization [facility] Address [address] [place] [address]. [place] [phone] Care Team Providers Care Pull Out Operator Name Role Phone Evaristo Allan MD Unavailable Unavailabl Raul Duran MD Unavailable Unavailabl Danny Lopes MD Unavailable [phone] Gayle Arce APRN, GRAND [employer]URY DEPUTY SHERIFF-C Unavailable Ti Bonilla MD Primary Care Provider Mendel Shah DPM Unavailable [phone] Jyoti Escobar MD Unavailable [phone] Encounter Details Date Type Department Care Team (Latest Contact Info) Description 04/05/2024 Travel Social History Tobacco Use Types Packs/Day Years Used Date Smoking Tobacco: Never Smokeless Tobacco: Never Alcohol Use Standard Drinks/Week Comments Yes 0 (1 standard drink = 0.6 oz pur e alcohol) social [facility] Utilities Answer Date Recorded In the past 12 months has e [employer], gas, oil, or water [employer] threatened to shut off services in your [...] any time in the past 12 m [facility], were you homeless or living in a custodial (including now)? 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 Author Safety ? Patient/family will have appropriate support at home upon discharge Lifestyle No Alex Lozano, social media assistant - family caregiver with be involved in care transitions and discharge planning Lifestyle No Alex Lozano, RN Patient will return to prior living situation and remain independent in ADLs upon discharge from hospital Lifestyle No Alex Lozano, RN documented as of this encounter Visit Diagnoses Not on filedocumented in this encounter Care Teams Pull Out Operator Relationship Specialty Start Date End Date Ti Bonilla MD [address] [place] [address] PCP - General FAMILY PRACTICE 12/03/21 Evaristo Allan MD [place] Customer Service Manager CARDIOVASCULAR DISEASE 08/19/16 Raul Santana MD CLINICAL CARDIAC ELECTROPHYSIOLOGY 06/16/17 Danny Blackwell MD [address] [place] [address] ORTHOPAEDIC SURGERY 05/01/19 Gayle Arce APRN, GRAND JURY DEPUTY SHERIFF-C [address] [facility] [address] [phone] NURSE PRACTITIONER 03/03/20 Mendel Shah DPM [address] [place] [address] Consulting Physician PODIATRY/SURGERY 06/27/23 06/26/24 Jyoti Escobar MD [address] [place], [place] [phone] INTERVENTIONAL CARDIOLOGY 12/27/23 documented as of this encounter
--- OUTSIDE RECORDS SUMMARY | 2024-04-23 05:13 | XMS_ITS | Encounter Summary ---
Author Organization [facility] Address [address] [place] [address]. [place], [place] [address] [place] [address] Care Team Providers Care Human Projectile Name Role Phone Elza Allan MD Unavailable UnavailRaul Suresh MD Unavailable Unavailabl Danny Lopes MD Unavailable [phone] Gayle Arce APRN, [facility] Unavailable Ti Zamora MD Primary Care Provider Mendel Shah DPM Unavailable [phone] Jyoti Escobar MD Unavailable [phone] Reason for Visit * Reason Comments Follow Up Hospitalization Encounter Details Date Type Department Care Team ([facility] st Contact Info) Description 12/26/2023 9:00 AM CDT Office Visit [facility] [address] [place] [address] Gayle Arce APRN, [facility] [address] [facility] [address] [place] [phone] Follow Up (Hospitalization) Social History Tobacco Use [...] any time in the past 12 m [facility], were you homeless or living in a half-way (including now)? 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 Escobar in 6 months. I [...] a history of coronary artery disease s/p TOOL SHAPER SETUP OPERATOR PCI on 03/24/18, atrial fibrillation s/p ablation [...] a day., Disp: , Rfl: Continuous Glucose Java Web Services Developer (FREESTYLE LI 3 READER) Device, Inject 1 [...] coronary artery RCA Coronary artery disease Diabetes ([facility] HHS/HCC) 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, limited to breakdown of skin ([facility]/HCC HHS/HCC) Fatigue GERD (gastroesophageal reflux disease) Headache Hyperlipidemia Hypertension has had elevated B/P readings Kidney stone SARAI on CPAP Paroxysmal atrial fibrillation ([facility] HHS/HCC) PONV (postoperative nausea and vomiting) Past Surgical History: Procedure Laterality Date CARDIAC CATHETERIZATION 01/04/2018 occluded prox RCA w/well developed [id number]-[id number]-cacgo collaterals lvef 55-60% CARDIAC CATHETERIZATION 11/13/2018 FRACTURE SURGERY HC TOTAL KNEE REVISION Right 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 Chronic diastolic heart failure ([facility]/HCC HHS/HCC) 2. Coronary artery disease involving [place] coronary artery of [place] heart, unspecified whether angina present 3. Paroxysmal atrial fibrillation ([facility]/HCC HHS/HCC) 4. Essential (primary) hypertension 5. Hyperlipidemia, mixed 6. half-way use of drug BASIC METABOLIC PANEL Referring Provider: No ref. provider found PCP: TI ZAMORA MD * Shanon Harris LPN - 12/26/2023 9:00 AM CDT Referral Placed documented in this encounter Plan of Treatment Upcoming Encounters Date Type Department Care Team (Late st Contact Info) Description 04/25/2024 11:00 AM COPY CUTTER Appointment [facility] [address] [place] [address] Ti Zamora MD [address] [place] [address] 05/23/2024 3:30 PM COPY CUTTER Office Visit [facility] [place] [address] Jyoti Escobar MD [address] [place] [address] Scheduled Orders Name Type Priority Associated Diagnoses Orde r Schedule BASIC METABOLIC PANEL Lab Routine termite control service representative use of drug Expected: 12/26/2023, Expires: 12/25/2024 documented as of this encounter Goals Goal Patient Goal Type Associated Problems Recent Progress Patient-Stated? Author Safety ? Patient/family will have appropriate support at home upon discharge Lifestyle No Alex Lozano, general manager food - family caregiver with be involved in [...] 9:32 AM CDT Coronary artery disease involving [place] coronary artery of [place] heart, unspecified whether angina present Hyperlipidemia, mixed termite control service representative use of drug documented in this encounter Results * ELECTROCARDIOGRAM (12/26/2023 9:32 AM CDT) 12/26/2023 9:32 AM CDT Narrative [facility] - 01/04/2024 1:52 PM CDT ? [facility] ?[address] [place], [place] ??[address] ? Test Date: ?2023-12-26 Pat Name: ? ELZA MCKEON ? Department: ?? 105 ? Room: ? Gender: ? Male ? Library Supervisor: ?? msf : ?1960 ? Requested By: ABDULKADIR DOWNING Order Number: [id number] ?Reading MD: ?? Beckipapa Nuñez ? Measurements Intervals ?[place] ? Rate: ? 100 ?P: ? LA: ? 0 ?QRS: ?37 QRSD: ? 118 ?T: ?-11 QT: ? 352 ? QTc: ?454 ? Interpretive Statements ATRIAL FIBRILLATION WITH RAPID VENTRICULAR RESPONSE RIGHT BUNDLE BRANCH BLOCK Procedure Note Becki Nuñez MD - 01/04/2024 [facility], [facility] [address] [place] [address] Test Date: 2023-12-26 Pat Name: [facility] Department: 105 Room: Gender: Male Library Supervisor: : 1960 Requested By: ABDULKADIR DOWNING Order Number: [id number] Reading MD: Becki Nuñez Measurements Intervals [place] Rate: 100 P: LA: 0 QRS: 37 QRSD: 118 T: -11 QT: 352 QTc: 454 Interpretive Statements ATRIAL FIBRILLATION WITH RAPID VENTRICULAR RESPONSE RIGHT BUNDLE BRANCH BLOCK us Abdulkadir Downing MD PROCEDURES-ORDERABLE NO CHARG E Final Result [facility] documented in this encounter Visit Diagnoses Diagnosis Chronic diastolic heart failure ([facility] HHS/[facility])- Primary Chronic diastolic heart failure Coronary artery disease involving [place] coronary artery of [place] heart, unspecified whether angina present Paroxysmal atrial fibrillation ([facility]/HCC HHS/HCC) Atrial fibrillation Essential (primary) hypertension Unspecified essential hypertension Hyperlipidemia, mixed Mixed hyperlipidemia half-way use of drug Encounter for long-term (current) use of other medications documented in this encounter Care Teams Human Projectile Relationship Specialty Start Date End Date Ti Zamora MD [address] [place] [phone] PCP - General FAMILY PRACTICE 12/03/21 Elza Allan MD Reading [employer] CARDIOVASCULAR DISEASE 08/19/16 Raul Santana MD CLINICAL CARDIAC ELECTROPHYSIOLOGY 06/16/17 Danny Blackwell MD [address] [place], [place] [phone] ORTHOPAEDIC SURGERY 05/01/19 Gayle Arce APRN, [facility] [address] [facility] [address] [phone] NURSE PRACTITIONER 03/03/20 Mendel Shah DPM [facility] [place] [address] Consulting Physician PODIATRY/SURGERY 06/27/23 06/26/24 Jyoti Escobar MD [address] [place], [place] [address] INTERVENTIONAL CARDIOLOGY 12/27/23 documented as of this encounter
--- OUTSIDE RECORDS SUMMARY | 2024-04-23 05:13 | XMS_ITS | Encounter Summary ---
Author Organization [facility] Address [address] [place] [address]. [place], [place] [address] [place] [address] Care Team Providers Care Head Of Cytogenetics Name Role Phone Elza Allan MD Unavailable Unavailabl Raul Duran MD Unavailable Unavailabl Danny Lopes MD Unavailable [phone] Gayle Arce APRN, NP-C Unavailable Ti Zamora MD Primary Care Provider [phone] Mendel Shah DPSallie Unavailable [phone] Reason for Visit * Reason Comments Pre-Op Exam Atrial Flutter Encounter Details Date Type Department Care Team ([facility] Contact Info) Description 12/02/2023 1:30 PM CDT Office Visit [facility] [address] [place] [phone] Nandini Salcido NP [address] [facility] [address]. 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 Medications Current Outpatient Medications: Continuous Glucose Manager Nicu (Snakk MediaSTYLE LI 3 READER) Device, , Disp: , Rfl: Continuous Glucose Sensor (FREESTYLE LI 3 SENSOR) [facility], , Disp: , Rfl: Continuous Glucose Transmitter (DEXCOM G6 TRANSMITTER) [facility], , Disp: , Rfl: LEVEMIR FLEXPEN 100 [...] coronary artery RCA Coronary artery disease Diabetes ([facility]/HCC HHS/HCC) Diabetic ulcer of toe of [...] CATHETERIZATION 01/04/2018 occluded prox RCA w/well developed teei-rc-rajsq collaterals lvef 55-60% CARDIAC CATHETERIZATION 11/13/2018 FRACTURE SURGERY HC TOTAL KNEE REVISION Right 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 [address] [place] [address] Ti Zamora MD [address] [place] [phone] 05/23/2024 3:30 PM HOSIERY REPAIRER Office Visit [facility] [address] [place] [address] [place] [phone] Jyoti Escobar MD [address] [place] [address] documented as of this encounter Procedures Procedure Name Priority Date/Time Associated Diagnosis Comments ELECTROCARDIOGRAM (NON MIDMARK ACQUIRED) Routine 12/02/2023 1:53 PM CDT Paroxysmal atrial fibrillation (CMS/HCC HHS/HCC) documented in this encounter Results * ELECTROCARDIOGRAM (12/02/2023 1:53 PM CDT) 12/02/2023 1:53 PM CDT Narrative [facility] - 12/13/2023 10:09 AM CDT ? [facility] ?[address] [place], [place] ??[address] ? Test Date: ?2023-12-02 Pat Name: ? ELZA MCKEON ? Department: ?? 105 ? Room: ? Gender: ? Male ? Automobile Rental Clerk: ?? ssb : ?1960 ? Requested By: JOSHUA YIN Order Number: [id number] ?Reading : ?? Leonid Khan ? Measurements Intervals ?[place] ? Rate: ? 92 ? P: ? OR: ? 0 ?QRS: ?81 QRSD: ? 109 ?T: ?43 QT: ? 389 ? QTc: ?483 ? Interpretive Statements ATRIAL FLUTTER/TACHYCARDIA WITH ABERRANT CONDUCTION OR VENTRICULAR PREMATURE COMPLEXES LOW QRS VOLTAGE IN PRECORDIAL LEADS INCOMPLETE RIGHT BUNDLE BRANCH BLOCK MODERATE ST DEPRESSION Procedure Note Leonid Khan MD - 12/13/2023 [facility] [address] [place] [address] Test Date: 2023-12-02 Pat Name: [facility] Department: 105 Room: Gender: Male Automobile Rental Clerk: alena : 1960 Requested By: JOSHUA YIN Order Number: [id number] Jose Antonio MD: Leonid Khan Measurements Intervals [place] Rate: 92 P: OR: 0 QRS: 81 QRSD: 109 T: 43 QT: 389 QTc: 483 Interpretive Statements ATRIAL FLUTTER/TACHYCARDIA WITH ABERRANT CONDUCTION OR VENTRICULARPREMATURE COMPLEXES LOW QRS VOLTAGE IN PRECORDIAL LEADS INCOMPLETE RIGHT BUNDLE BRANCH BLOCK MODERATE ST DEPRESSION us Joshua Yin MD PROCEDURES-ORDERABLE NO CHARGE F inal Result [facility] documented in this encounter Visit Diagnoses Diagnosis Atypical atrial flutter (CMS/HCC HHS/HCC)- Primary Atrial flutter Paroxysmal atrial fibrillation ([facility] HHS/[facility]) Atrial fibrillation documented in this encounter Care Teams Head Of Cytogenetics Relationship Specialty Start Date End Date Ti Zamora MD [address] [place] [phone] PCP - General FAMILY PRACTICE 12/03/21 Elza Allan MD [place] Foreman Shipping Department CARDIOVASCULAR DISEASE 08/19/16 Raul Santana MD CLINICAL CARDIAC ELECTROPHYSIOLOGY 06/16/17 Danny Blackwell MD [address] [place] [address] ORTHOPAEDIC SURGERY 05/01/19 Gayle Arce APRN, ELECTRONICS SYSTEM MECHANIC-C [address] [facility] [address] [place] [phone] NURSE PRACTITIONER 03/03/20 Mendel Shah DPM [address] [place] [address] [place] [address] Consulting Physician PODIATRY/SURGERY 06/27/23 06/26/24 documented as of this encounter
--- OUTSIDE RECORDS SUMMARY | 2024-04-23 05:13 | XMS_ITS | Encounter Summary ---
Author Organization [facility] Address [address] [place] [address]. [place], [place] [address] [place] [address] Care Team Providers Care Cashier Assistant Name Role Phone Evaristo Allan MD Unavailable Unavailabl Raul Duran MD Unavailable Unavailabl Danny Lopes MD Unavailable [phone] Gayle Arce APRN, SATELLITE INSTALLER-C Unavailable Ti Bonilla MD Primary Care Provider Mendel Shah DPM Unavailable [phone] Jyoti Escobar MD Unavailable [phone] Reason for Visit * Reason Onset Date Comments Record Request 03/22/2024 Encounter Details Date Type Department Care Team ([facility] Contact Info) Description 03/22/2024 Telephone [facility] [address] [place] [address] Joshua Yin MD [address] [place] [address] Record Request Social History Tobacco Use Types Packs/Day Years Used Date Smoking Tobacco: Never Smokeless Tobacco: Never Alcohol Use Standard Drinks/Week Comments Yes 0 (1 standard drink = 0.6 oz pur e alcohol) social [facility] Utilities Answer Date Recorded In the [...] in the past [address] [facility], were you homeless or living in a [place] health care facility (including now)? 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 Put on Shannan's desk for review. PRINT PRESS OPERATOR documented in this encounter Plan of Treatment Upcoming Encounters Date Type Department Care Team (Late st Contact Info) Description 04/25/2024 11:00 AM INFO PRINT PRESS OPERATOR Appointment [facility] [address] [facility] [place] [address] Ti Bonilla MD [address] [place] [address] 05/23/2024 3:30 PM INFO PRINT PRESS OPERATOR Office Visit [facility] [address] [place] [address] Jyoti Escobar MD [address] [place], [place] [address] documented as of this encounter Goals Goal Patient Goal Type Associated Problems Recent Progress Patient-Stated? Author Safety ? Patient/family will have appropriate support at home upon discharge Lifestyle No Alex Lozano, banquet lead - family caregiver with be involved in care transitions and discharge planning Lifestyle No Alex Lozano, RN Patient will return to prior living situation and remain independent in ADLs upon discharge from hospital Lifestyle No Alex Lozano RN documented as of this encounter Visit Diagnoses Not on filedocumented in this encounter Care Teams Cashier Assistant Relationship Specialty Start Date End Date Ti Bonilla MD [address] [place] [phone] PCP - General FAMILY PRACTICE 12/03/21 Evaristo Allan MD [place] Production Operator CARDIOVASCULAR DISEASE 08/19/16 Raul Santana MD CLINICAL CARDIAC ELECTROPHYSIOLOGY 06/16/17 Danny Blackwell MD [address] [place] [address] ORTHOPAEDIC SURGERY 05/01/19 Gayle Arce APRN, SATELLITE INSTALLER-C [address] [facility] [address] [place] [phone] NURSE PRACTITIONER 03/03/20 Mendel Shah DPM [address] [place] [address] [place] [address] Consulting Physician PODIATRY/SURGERY 06/27/23 06/26/24 Jyoti Escobar MD [address] [place] [address] INTERVENTIONAL CARDIOLOGY 12/27/23 documented as of this encounter
--- OUTSIDE RECORDS SUMMARY | 2024-04-23 05:13 | XMS_ITS | Encounter Summary ---
Author Organization [facility] Address [address] [place] [address]. [place], [place] [address] [place] [address] Care Team Providers Care Physician Relations Representative Name Role Phone Evaristo Allan MD Unavailable Unavailabl Raul Duran MD Unavailable Unavailabl Danny Lopes MD Unavailable [phone] Gayle Arce APRN, THEATER SET PRODUCTION DESIGNER-C Unavailable [phone] Ti Zamora MD Primary Care Provider [phone] Mendel Shah DPM Unavailable [phone] Jyoti Escobar MD Unavailable [phone] Reason for Referral * Imaging (Routine) - Closed Specialty Diagnoses / Procedures Referred By Charito ledbetter Referred To Contact RADIOLOGY Diagnoses Voiding dysfunction Procedures US BLADDER Ti Zamora MD [address] [place] [phone] Phone: tel: fax: Referral ID Status Reason Start Date Expiration Date Visits Re quested Visits Authorized [id number] Closed 03/07/2024 03/07/2025 1 1 ISSIONS COORDINATOR Reason for Visit * Imaging (Routine) - Closed Specialty Diagnoses / Procedures Referred By Contac t Referred To Contact RADIOLOGY Diagnoses Voiding dysfunction Procedures US BLADDER Ti Zamora MD [address] [place] [phone] Phone: tel: fax: Referral ID Status Reason Start Date Expiration Date Visits Re quested Visits Authorized [id number] Closed 03/07/2024 03/07/2025 1 1 Encounter Details Date Type Department Care Team (Latest Contact Info) Description 03/20/2024 7:43 AM COMMISSIONS COORDINATOR - 03/20/2024 11:59 PM COMMISSIONS COORDINATOR Hospital Encounter [facility] [address] [place] [address] Ti Zamora MD [address] [place] [phone] Discharge Disposition: Home or Self Care (Routine Discharge) Social History Tobacco Use Types Packs/Day Years Used Date Smoking Tobacco: Never Smokeless Tobacco: Never Alcohol Use Standard Drinks/Week Comments Yes 0 (1 standard drink = 0.6 oz pur e alcohol) social [facility] Utilities Answer Date Recorded In the past 12 months has [facility], gas, oil, or water [place] threatened to shut off services in your [...] time in the past 12 m [facility], were you homeless or living in a residential (including now)? No 12/08/2023 Sex and Gender [...] bedtime. 45 tablet 3 12/26/2023 Continuous Glucose Glove Parts Cutter (FREESTYLE [place] 3 READER) Device Inject 1 Device into [...] 09/13/2019 OXYGEN CONCENTRATOR SUPPLY, DME,Indications:CH F exacerbation ([facility]) 1 Device by Nasal route continuous. Pt [...] st Contact Info) Description 04/25/2024 11:00 AM COMMISSIONS COORDINATOR Appointment [facility] [place] [address] Ti Zamora MD [address] [place] [phone] 05/23/2024 3:30 PM COMMISSIONS COORDINATOR Office Visit [facility] [address] [place] [phone] Jyoti Escobar MD [address] [place] [address] documented as of this encounter Goals Goal Patient Goal Type Associated Problems Recent Progress Patient-Stated? Author Safety ? Patient/family will have appropriate support at home upon discharge Lifestyle No Alex Lozano, senior net architect - family caregiver with be involved in care transitions and discharge planning Lifestyle No Alex Lozano, RN Patient will return to prior living situation and remain independent in ADLs upon discharge from hospital Lifestyle No Alex Lozano RN documented as of this encounter Procedures Procedure Name Priority Date/Time Associated Diagnosis Comments US BLADDER Routine 03/20/2024 9:01 AM COMMISSIONS COORDINATOR Voiding dysfunction documented in this encounter Results * US BLADDER (03/20/2024 9:01 AM COMMISSIONS COORDINATOR) Anatomical Region Laterality Modality Renal Ultrasound 03/20/2024 9:00 AM COMMISSIONS COORDINATOR Impressions 03/20/2024 9:02 AM COMMISSIONS COORDINATOR IMPRESSION: 1. No urinary bladder mass or calculus demonstrated. 2. Bladder volumes as described. Ordered By: TI ZAMORA Interpreted By: Matteo Buenrostro MD, 03/20/2024 9:00 AM Narrative 03/20/2024 9:02 AM COMMISSIONS COORDINATOR [address] [place] [id number] Examination: Ultrasound of the urinary bladder. Exam time: 0830 hours. Clinical history: Voiding dysfunction. Comparison: None. Technique: Grayscale and color Doppler images. Findings: Bilateral ureteral jets are demonstrated. No urinary bladder mass or calculus is demonstrated. The calculated prevoid bladder volume is approximately 116 mL. The calculated post void bladder volume is approximately 48 mL. Procedure Note Matteo Buenrostro MD - 03/20/[address] [place] [address] Examination: Ultrasound of the urinary bladder. Exam [...] tract documented in this encounter Care Teams Physician Relations Representative Relationship Specialty Start Date End Date Ti Zamora MD [address] [place] [phone] PCP - General FAMILY PRACTICE 12/03/21 Evaristo Allan MD [place] Government Minister CARDIOVASCULAR DISEASE 08/19/16 Raul Santana MD CLINICAL CARDIAC ELECTROPHYSIOLOGY 06/16/17 Danny Blackwell MD [address] [place], [place] [phone] ORTHOPAEDIC SURGERY 05/01/19 Gayle Arce APRN, THEATER SET PRODUCTION DESIGNER-C [address] [place] [address] [phone] NURSE PRACTITIONER 03/03/20 Mendel Shah DPM [address] [place] [address] [place] [address] Consulting Physician PODIATRY/SURGERY 06/27/23 06/26/24 Jyoti Escobar MD [address] [place] [address] INTERVENTIONAL CARDIOLOGY 12/27/23 documented as of this encounter
--- OUTSIDE RECORDS SUMMARY | 2024-04-23 05:13 | XMS_ITS | Encounter Summary ---
Author Organization [facility] Address [address] [place] [address]. [place] [address] [place] [address] Care Team Providers Care Bundling Machine Operator Name Role Phone Evaristo Allan MD Unavailable Unavailabl Raul Duran MD Unavailable Unavailabl Danny Lopes MD Unavailable [phone] Gayle Arce APRN, CHAIR CAR DRIVER-C Unavailable [phone] Ti Bonilla MD Primary Care Provider Mendel Shah DPM Unavailable [phone] Encounter Details Date Type Department Care Team (Latest Contact Info) Description 09/09/2023 10:39 AM CDT - 09/09/2023 11:59 PM CDT Hospital Encounter [facility] [address] [place] [address] Gayle Arce APRN, CHAIR CAR DRIVER-C [address] [place] [phone] Discharge Disposition: Home or Self Care (Routine [...] 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 Not on [...] TRUEPLUS PEN NEEDLES 31G X 8 [facility]2021 atorvastatin 40 MG tablet Take 0.5 [...] Info) Description 04/25/2024 11:00 AM PUBLIC HEALTH STAFF NURSE Appointment [facility] [address] [place] [address] [place] [address] Ti Bonilla MD [address] [place] [phone] 05/23/2024 3:30 PM PUBLIC HEALTH STAFF NURSE Office Visit [facility] [address] [place] [phone] Jyoti Escobar MD [address] [place] [phone] documented as of this encounter Procedures Procedure Name Priority Date/Time Associated Diagnosis Comments BASIC METABOLIC PANEL Routine 09/09/2023 10:45 AM CDT terminal makeup operator use of drug documented in this encounter Results * (ABNORMAL) BASIC METABOLIC PANEL (09/09/2023 10:45 AM CDT) SODIUM S/P/B 143 136 - 145 MMOL/L 09/09/2023 11:03 AM T [facility] POTASSIUM S/P/B 4.7 3.5 - 5.1 MMOL/L 09/09/2023 11:03 AM T [facility] CHLORIDE S/P/B 104 98 - 107 MMOL/L 09/09/2023 11:03 AM T [facility] CO2 33.3(H) 21.0 - 32.0 MMOL/L 09/09/2023 11:03 AM T [facility] GLUCOSE 130(H) 70 - 99 MG/DL 09/09/2023 11:03 AM T [facility] Comment: FASTING GLUCOSE 100 TO 125 MG/DL IS CONSISTENT WITH IMPAIRED FASTING GLUCOSE. FASTING GLUCOSE >125 MG/DL IS CONSISTENT WITH DIABETES. RANDOM GLUCOSE >200 MG/DL WITH HYPERGLYCEMIC SYMPTOMS IS CONSISTENT WITH DIABETES. PER ADA GUIDELINES BUN 15 6 - 24 MG/DL 09/09/2023 11:03 AM T [facility] CREATININE S/P/B 1.20 0.70 - 1.30 MG/DL 09/09/2023 11:03 AM CDT [facility] CALCIUM S/P/B 8.9 8.4 - 10.5 MG/DL 09/09/2023 11:03 AM CDT [facility] ANION GAP 5.7 5.0 - 15.0 MMOL/L 09/09/2023 11:03 AM CDT [facility] OSMOLALITY (CALC) 299 MOSM/KG 024 11:03 AM CDT [facility] Comment:REFERENCE RANGE NOT ESTABLISHED GFR ESTIMATE 68(L) >89 ML/MIN/1. 73 M2 09/09/2023 11:03 AM CDT [facility] GFR NOTES GFR REFERENCE S: 09/09/2023 11:03 AM CDT [facility] Comment: THE ESTIMATED GFR [...] 5 AM CDT us Gayle Arce APRN, CHAIR CAR DRIVER-C LABORATORY Final Result [facility] [address] [place] [address], documented in this encounter Visit Diagnoses Diagnosis terminal makeup operator use of drug Encounter for long-term (current) use of other medications documented in this encounter Care Teams Bundling Machine Operator Relationship Specialty Start Date End Date Ti Bonilla MD [address] [place] [phone] PCP - General FAMILY PRACTICE 12/03/21 Evaristo Allan MD [employer] Electrical Engineer CARDIOVASCULAR DISEASE 08/19/16 Raul Santana MD CLINICAL CARDIAC ELECTROPHYSIOLOGY 06/16/17 Danny Blackwell MD [address] [place], [place] [phone] ORTHOPAEDIC SURGERY 05/01/19 Gayle Arce APRN, CHAIR CAR DRIVER-C [address] [place] [phone] NURSE PRACTITIONER 03/03/20 Mendel Shah DPM [address] [place] [address] [place] [address] Consulting Physician PODIATRY/SURGERY 06/27/23 06/26/24 documented as of this encounter
--- OUTSIDE RECORDS SUMMARY | 2024-04-23 05:13 | XMS_ITS | Encounter Summary ---
Author Organization [facility] Address [address] [place] [address]. [place], [place] [phone] [place] [address] Care Team Providers Care Environmental Health Aide Name Role Phone Evaristo Allan MD Unavailable Unavailabl Raul Duran MD Unavailable Unavailabl Danny Lopes MD Unavailable [phone] Gayle Arce APRN, SHIRT MAKER-C Unavailable Ti Bonilla MD Primary Care Provider Mendel Shah DPM Unavailable [phone] Jyoti Escobar MD Unavailable [phone] Encounter Details Date Type Department Care Team (Late st Contact Info) Description 03/21/2024 Scan [facility] [address] [place] [address] Scanned, Doc Pccl Social History Tobacco Use Types Packs/Day Years Used Date Smoking Tobacco: Never Smokeless Tobacco: Never Alcohol Use Standard Drinks/Week Comments Yes 0 (1 standard drink = 0.6 oz pur e alcohol) social [facility] Utilities Answer Date Recorded In [...] any time in the past 12 m [facility], were you homeless or living in a [...] Description 04/25/2024 11:00 AM QUALITY ASSURANCE SUPERVISOR FINAL Appointment [facility] [address] [facility] [place] [address] Ti Bonilla MD [address] [place] [phone] 05/23/2024 3:30 PM QUALITY ASSURANCE SUPERVISOR FINAL [facility] [address] [place] [address] Jyoti Escobar MD [address] [place] [address] documented as of this encounter Goals Goal Patient Goal Type Associated Problems Recent Progress Patient-Stated? Author Safety ? Patient/family will have appropriate support at home upon discharge Lifestyle No Alex Lozano, gym teacher - family caregiver with be involved in care transitions and discharge planning Lifestyle No Alex Lozano, RN Patient will return to prior living situation and remain independent in ADLs upon discharge from hospital Lifestyle No Alex Lozano RN documented as of this encounter Visit Diagnoses Not on filedocumented in this encounter Care Teams Environmental Health Aide Relationship Specialty Start Date End Date Ti Bonilla MD [address] [place] [phone] PCP - General FAMILY PRACTICE 12/03/21 Evaristo Allan MD [place] [employer] Driver CARDIOVASCULAR DISEASE 08/19/16 Raul Santana MD CLINICAL CARDIAC ELECTROPHYSIOLOGY 06/16/17 Danny Blackwell MD [address] [place], [place] [phone] ORTHOPAEDIC SURGERY 05/01/19 Gayle Arce APRN, SHIRT MAKER-C [address] [place] [address] [address] [place] [phone] NURSE PRACTITIONER 03/03/20 Mendel Shah, DPM [address] [place] [phone] Consulting Physician PODIATRY/SURGERY 06/27/23 06/26/24 Jyoti Escobar MD [address] [place] [address] INTERVENTIONAL CARDIOLOGY 12/27/23 documented as of this encounter
--- OUTSIDE RECORDS SUMMARY | 2024-04-23 05:13 | XMS_ITS | Encounter Summary ---
Author Organization [facility] Address [address] [place] [address]. [place] [address] [place] [address] Care Team Providers Care Event Specialist Product Demonstrator Name Role Phone Evaristo Allan MD Unavailable Unavailabl Raul Duran MD Unavailable Unavailabl Danny Lopes MD Unavailable [phone] Gayle Arce APRN, CUTTER OPERATOR HELPER-C Unavailable Ti Bonilla MD Primary Care Provider Mendel Shah DPSallie Unavailable [phone] Reason for Visit * Reason Onset Date Comments Schedule Procedure 10/12/2023 Encounter Details Date Type Department Care Team (Late st Contact Info) Description 10/12/2023 Telephone [facility] [address] [place] [address] Alfredo Gonsales, PA-C [address] [place] [address] Schedule Procedure Social History Tobacco [...] 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 [address] [facility] [place] [address] Ti Bonilla MD [address] [place] [phone] 05/23/2024 3:30 PM AREA LOSS PREVENTION MANAGER Office Visit [facility] [address] [place] [phone] Jyoti Escobar MD [address] [place] [address] documented as of this encounter Visit Diagnoses Not on filedocumented in this encounter Care Teams Event Specialist Product Demonstrator Relationship Specialty Start Date End Date Ti Bonilla MD [address] [place] [phone] PCP - General FAMILY PRACTICE 12/03/21 Evaristo Allan MD [place] [employer] Repairer CARDIOVASCULAR DISEASE 08/19/16 Raul Santana MD CLINICAL CARDIAC ELECTROPHYSIOLOGY 06/16/17 Danny Blackwell MD [address] [place] [address] ORTHOPAEDIC SURGERY 05/01/19 Gayle Arce APRN, CUTTER OPERATOR HELPER-C [address] [place] [address] [address] [place] [phone] NURSE PRACTITIONER 03/03/20 Mendel Shah DPM [facility] [facility] [place] [address] Consulting Physician PODIATRY/SURGERY 06/27/23 06/26/24 documented as of this encounter
--- OUTSIDE RECORDS SUMMARY | 2024-04-23 05:13 | XMS_ITS | Encounter Summary ---
Author Organization [facility] Address [address] [place] [address]. [place], [place] [id number] [place] [address] Care Team Providers Care Food Dehydrator Operator Name Role Phone Elza Allan MD Unavailable Unavailabl Raul Duran MD Unavailable Unavailabl e Danny Blackwell MD Unavailable [phone] Gayle Arce APRN, FOAM FABRICATOR-C Unavailable Ti Zamora MD Primary Care Provider Mendel Shah DPSallie Unavailable [phone] Reason for Referral * Procedure (Routine) - Pending Review Specialty Diagnoses / Procedures Referred By Conttianna ledbetter Referred To Contact Procedures Home O2 eval Home O2 eval Dior Morales MD [address] [place] [address] Phone: tel: fax: Referral ID Status Reason Start Date Expiration Date V isits Requested Visits Authorized [id number] Pending Review 12/10/2023 12/09/2024 1 1 * (Routine) - New Request Specialty Diagnoses / Procedures Referred By Charito ledbetter Referred To Contact Procedures CIRCULATION SALES REPRESENTATIVE eval and treat Dior Morales MD [address] [place] [address] Phone: tel: fax: Referral ID Status Reason Start Date Expiration Date V isits Requested Visits Authorized [id number] New Request 12/09/2023 12/08/2024 1 1 * Imaging (Urgent) - Pending Review Specialty Diagnoses / Procedures Referred By Charito t Referred To Contact RADIOLOGY Procedures USE ECHOCARDIOGRAM W CON USE ECHOCARDIOGRAM Leonela Farias ACN-BC [address] [place] [address] Phone: tel: fax: Referral ID Status Reason Start Date Expiration Date V isits Requested Visits Authorized [id number] Pending Review 12/08/2023 12/07/2024 1 1 Reason for Visit * Auth/Cert (Routine) Specialty Diagnoses / Procedures Referred By Charito ledbetter Referred To Contact Diagnoses CHF exacerbation ([facility]/HCC [facility]) SOB CHF exacerbation Procedures GENERAL Deana Curry MD [address] [place] [address] Phone: tel: fax: Referral ID Status Reason Start Date Expiration Date Visits Re quested Visits Authorized [id number] 1 1 Encounter Details Date Type Department Care Team (Latest Contact Info) Description 12/08/2023 12:37 PM CDT - 12/11/2023 3:40 PM CDT Hospital Encounter [facility] [address] [place] [address] Deana Curry MD [address] [place], [place] [id number] Willem Lora MD [address] [place], [place] [id number] Dior Morales MD [address] [place] [address] Discharge Disposition: Home or Self Care (Routine Discharge) Social History Tobacco Use Types Packs/Day Years Used Date Smoking Tobacco: Never Smokeless Tobacco: Never Alcohol Use Standard Drinks/Week Comments Yes 0 (1 standard drink = 0.6 oz pur e alcohol) social [facility] Utilities Answer Date Recorded In the past 12 months has e [employer], gas, oil, or water [employer] threatened to shut off services in your [...] any time in the past 12 m [facility], were you homeless or living in a penitentiary (including now)? 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 Not on file Not on file [...] Hospitalist Discharge Summary Patient ID: Elza Mckeon [id number] 63-year-old 1960 Admit date: 12/08/2023 Expected Discharge Date: 12/11/2023 Primary care Physician: TI ZAMORA MD Admitting Physician: Deana Curry MD Discharge Physician: WILLEM LORA MD Admission Diagnoses: CHF exacerbation ([facility]) [I50.9] Discharge Diagnoses: Acute hypoxemic respiratory failure due to pulmonary edema Acute on chronic CHF with preserved EF Essential hypertension Past Medical History Past Medical History: Diagnosis Date Abnormal stress test Arthritis 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 Coronary artery disease Diabetes ([facility] HHS/HCC) 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, limited to breakdown of skin ([facility] HHS/HCC) Fatigue GERD (gastroesophageal reflux disease) Headache Hyperlipidemia Hypertension has had elevated B/P readings Kidney stone SARAI on CPAP Paroxysmal atrial fibrillation ([facility]) PONV (postoperative nausea and vomiting) [...] XR CHEST PORTABLE Final Result by User, [id number] (12/09 123) Portable chest INDICATION: Congestive heart [...] ECHOCARDIOGRAM W CON Final Result by User, [id number] (12/08 954) Echocardiography Report Pat.Name: ELZA MCKEON.ID: [id number] .Date: 12/08/2023 : [id number] WALE Stark EWDPROV EWDPROV Exam Time: 2:29:00 [...] Mass 2D Value 181 g LV Mass [id number] Value 72.7 g/m2 RA Volume Atrial Do [...] nightly at bedtime., Historical Med Continuous Glucose Gliding Pilot Instructor (FREESTYLE LI 3 READER) Device Inject 1 [...] Care: none needed Follow-up: Ti Zamora MD [address] [place] [phone] Schedule an appointment as soon as possible for a visit in 3 day(s) Hospital F/U for Acute hypoxemic respiratory failure due to pulmonary edema, Acute on chronic CHF with preserved EF and Essential hypertension Carlos Sheth MD [address] [facility] [address] [facility] [phone] Schedule an appointment as soon as possible for a visit in 1 week(s) CHF exacerbation Total time spent on discharge was 41 minutes. Thank you for choosing [facility]. Please call [phone] if you have any questions or concerns. Signed: WILLEM LORA MD 12/11/2023 8:09 PM documented in this encounter Discharge Instructions * Attachments The following attachments cannot be sent through Care Everywhere. * Heart Failure Discharge Instructions, Adult (Indian) * Low-sodium diet (Indian) documented in this encounter Medications at Time of Discharge amitriptyline 100 MG tablet Take 1 tablet (100 mg total) by mouth nightly at bedtime. 09/10/2020 aspirin 81 MG chewable tablet Chew 1 tablet (81 mg total) by mouth daily. 04/19/2023 Continuous Glucose Gliding Pilot Instructor (FREESTYLE LI 3 READER) Device Inject 1 [...] 09/13/2019 OXYGEN CONCENTRATOR SUPPLY, DME,Indications:CH F exacerbation ([facility]) 1 Device by Nasal route [...] GRAHAM Kruger - 12/10/2023 2:59 PM CDT CIRCULATION SALES REPRESENTATIVE Initial Clinical Dysphagia Evaluation Diet Recommendation: IDDSI [...] care of this patient. Ina Thomas, MS [facility]-CIRCULATION SALES REPRESENTATIVE/L [phone] Objective: This patient was seen at bedside [...] or wet respiration. 12/10/23 1454 Therapy Visit CIRCULATION SALES REPRESENTATIVE Received on 12/09/23 CIRCULATION SALES REPRESENTATIVE Evaluation Completed on 12/10/23 Subjective Pt awake, [...] SARAI with CPAP, HTN Comorbidities Relevant for CIRCULATION SALES REPRESENTATIVE none Prior Level of Function pt lives at home with his - pt reported his recently had a swallow eval as well. Verified Two Patient Identifiers Yes Inpatient CIRCULATION SALES REPRESENTATIVE Time Calculation CIRCULATION SALES REPRESENTATIVE Start Time 1430 CIRCULATION SALES REPRESENTATIVE Stop Time 1454 CIRCULATION SALES REPRESENTATIVE Time Calculation (min) 24 min Pain Pain [...] note for objective data Swallowing impressions/assessment WFLs CIRCULATION SALES REPRESENTATIVE Recommendations Ongoing Recommendations No skilled CIRCULATION SALES REPRESENTATIVE Recommended Diet Change No Previous Diet general/thin Recommended Solid Diet Level 7 Regular Transitional Food Permitted Yes Recommended Liquid Consistency Level 0 Thin Recommended Medication Form Whole Recommended Safety Precautions Small sips and bites when eating;Slow rate: swallow between bites;Alternate Liquids and solids Understanding of information was judged to be WFls Results/Recommendations discussed with pt, RN, MD Plan Progress Discontinue CIRCULATION SALES REPRESENTATIVE CIRCULATION SALES REPRESENTATIVE Plan for Next Session discontinue CIRCULATION SALES REPRESENTATIVE Next Appointment 12/10/23 If this is the [...] RN - 12/09/2023 3:39 PM CDT 12/09/23 2986 Interdisciplinary Group Conference Team Members Present Physician;Case/Care management;Nursing Physician present for group conference Dr. Markell Morales Barriers to Discharge Barriers Complex - Social and/or Medical Complex - Social and/or Medical follow up EP, CIRCULATION SALES REPRESENTATIVE to see. Cardio following, cont high dose [...] 12/09/23 Assessment ASSESSMENT AND PLAN CHF exacerbation ([facility]) Acute exacerbation of chronic diastolic [...] 12/09/2023 1:52 PM CDTAssociated Problem(s): CHF exacerbation ([facility]) Acute exacerbation of chronic diastolic [...] / patient alone Patient's support system: family Mormonism Affiliation/Spiritual Background: None Vivian community: None Interventions: Spiritual Care facilitated patient in attaining their spiritual goals by: Spiritual: Providing listening Offering prayer/blessing Emotional: Demonstrating acceptance of patient Offering emotional support to patient Follow up Needed: As need. * Jemma CanoD, [facility] - 12/09/2023 12:22 PM CDT Pharmacy Clinical Services: New Start Sodium-Glucose Co Transporter 2 Inhibitor (SGLT2) Drug: Jardiance Dose: 10 mg Indication: CHF Patient's profile has been reviewed for initiation of Jardiance per the consult request entered by Meryl. Any concerns have been communicated with the ordering provider. Provider has discussed the risks and benefits with the patient. [facility] Inpatient Pharmacy has phoned in 30-day supply prescription with the information above to [facility] for inpatient use. Med will be billed to patient's prescription drug insurance if applicable. If a coupon card is used, a 30-day supply of the medication will be provided. No refills. Patient will be started on the hospital supply of empagliflozin per [facility] Formulary prior to receiving their own supply from [facility]. Once the medication is filled, the medication will be delivered to the inpatient pharmacy for industrial order clerk and home medication processing. Patient's own supply of medication will then be utilized for the duration of the patient's hospital stay. Thank you, Sangeetha Alves PharmD, [facility] Phone: [phone] 12:22 PM Electronically signed by Sangeetha Alves PharmD, [facility] at 12/09/2023 12:22 PM CDT * Alex Lozano RN - 12/09/2023 11:38 AM CDT The singer songwriter provided CM role and pt in agreement to an assessment. Patient resides in: [place], [place], with spouse April Support person/point of contact: April Insurance: Abdoulaye Work history/status: retired PCP: Ti Zamora MD Preferred RX: [facility] COVID vaccination status: not vaccinated Baseline function with ADLs: independent DME: none Current [facility] [place], interim services: none Mental Health, Drugs/ETOH use: [...] Status Independent Behavior Oriented;Cooperative Communication Talks;Understands speaking;Understands Indian Psychosocial Need Indicator Mental health concerns No [...] [place] only - Is patient going to senior care? No * Estefania Zavaleta RN - 12/09/2023 [...] by Dr Yin on 12/04. Presented to [facility] ED with worsening SOB. CXR showed pulm edema. CTA negative for PE, positive for pulm edema. BNP 391. Troponin elevated. Dr Shepard contacted. Troponin likely up 2/2 recent ablation. He recommends transfer to [facility] for CHF exacerbation. Patient is on RA. [...] ZAMORA MD Reason for Admission: CHF exacerbation ([facility]) Assessment/Plan: Elza Mckeon is an [...] I spent a total of 40 minutes [id number] with the patient, reviewing the patient's chart, clinical decision making, and documentation of patient's care. 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, limited to breakdown of skin ([facility] HHS/HCC) Fatigue GERD (gastroesophageal reflux disease) Headache Hyperlipidemia Hypertension has had elevated B/P readings Kidney stone SARAI on CPAP Paroxysmal atrial fibrillation ([facility]/HCC HHS/HCC) PONV (postoperative nausea and vomiting) Social History Tobacco Use Smoking status: Never Smokeless tobacco: Never Substance Use Topics Alcohol use: Yes Comment: social Past Surgical History: Procedure Laterality Date CARDIAC CATHETERIZATION 01/04/2018 occluded prox RCA w/well developed [id number] collaterals lvef 55-60% CARDIAC CATHETERIZATION 11/13/2018 FRACTURE SURGERY HC TOTAL KNEE REVISION Right 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 Continuous Glucose Gliding Pilot Instructor (FREESTYLE LI 3 READER) Device Inject 1 [...] : 1960 PCP: TI ZAMORA MD Primary Orchestra Conductor: Previously Dr. Allan (follows with Gayle Arce [...] SARAI on CPAP, hyperlipidemia, diabetes [facility] of worsening dyspnea. Patient recently [...] compliant with his diuretic therapy. [facility]. On initial evaluation [facility] he was hypoxic requiring supplemental oxygen via nasal cannula. Laboratory analysis revealed proBNP 391, troponin 233, creatinine 1.13, EKG showed sinus rhythmwith nonspecific ST-T wave abnormalities. CTA chest was negative for PE and showed bilateral lung disease right greater than left which could represent pulmonary edema, aspiration or pneumonia and cardiomegaly. He was given IV Lasix, Solu-Medrol, nebulizer treatment magnesium and transferred to [facility] for further evaluation. 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, limited to breakdown of skin (CMS/HCC HHS/HCC) Fatigue GERD (gastroesophageal reflux disease) Headache Hyperlipidemia Hypertension has had elevated B/P readings Kidney stone SARAI on CPAP Paroxysmal atrial fibrillation ([facility]/HCC HHS/HCC) PONV (postoperative nausea and vomiting) Past Surgical History: Procedure Laterality Date CARDIAC CATHETERIZATION 01/04/2018 occluded prox RCA w/well developed [id number]-tt-[id number] collaterals lvef 55-60% CARDIAC CATHETERIZATION 11/13/2018 FRACTURE SURGERY HC TOTAL KNEE REVISION Right 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 Continuous Glucose Gliding Pilot Instructor (FREESTYLE LI 3 READER) Device Inject 1 [...] the skin nightly at bedtime. 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 : 1960 Requested By: MARKELL YIN Order Number: [id number] Reading MD: Kyle Mckeon Measurements Intervals Tangent Rate: 85 P: NH: 0 QRS: 60 QRSD: 141 T: 31 QT: 407 QTc: 487 Interpretive Statements ATRIAL FIBRILLATION RIGHT BUNDLE BRANCH BLOCK [120+ ms QRS DURATION, UPRIGHT V1, 40+ ms S IN I/aVL/V4/V5/V6] ECG 12 lead - Today Result Date: 12/05/2023 [place] [address] [place] [address] Test Date: 2023-12-05 Pat Name: [facility] Department: 1 Room: [address] Gender: Male 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 Plant 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: : 1960 Requested By: MARKELL YIN Order Number: [id number] Reading : Leonid Khan Measurements Intervals Tangent Rate: 96 P: 75 NH: 237 QRS: 58 QRSD: 109 T: 18 QT: 345 QTc: 437 Interpretive Statements SINUS RHYTHM WITH MARKED SINUS ARRHYTHMIA WITH FIRST DEGREE AV BLOCK LOW QRS VOLTAGE IN PRECORDIAL LEADS [QRS DEFLECTION < 1.0 mV IN CHEST LEADS] INCOMPLETE RIGHT BUNDLE BRANCH BLOCK [90+ ms QRS DURATION, TERMINAL R IN V1/V2, 40+ ms S IN I/aVL/V4/V5/V6] ELECTROCARDIOGRAM Result Date: 12/02/2023 [facility] [address] [place] [address] Test Date:2023-12-02 Pat Name: [facility] Department: 105 Room: Gender: Male Caustic Plant Worker: alena : 1960 Requested By: MARKELL YIN Order Number: [id number] Reading MD: MARKELL YIN Measurements Intervals Tangent Rate: 92 P: NH: 0 QRS: 81 QRSD: 109 T: 43 QT: 389 QTc: 483 InterpretiveStatements ATRIAL FLUTTER/TACHYCARDIA WITH ABERRANT CONDUCTION OR VENTRICULAR PREMATURE COMPLEXES LOW QRS VOLTAGE IN PRECORDIAL LEADS INCOMPLETE RIGHT BUNDLE BRANCH BLOCK MODERATE ST DEPRESSION No results found for this visit on 12/08/23. IJodie MD, [facility], have independently performed history and physical exam [...] Contact Info) Description 04/25/2024 11:00 AM EXECUTIVE SALES MANAGER Appointment [facility] [address] [place] [address] Ti Zamora MD [address] [place] [phone] 05/23/2024 3:30 PM EXECUTIVE SALES MANAGER Office Visit [facility] [place] [address] Jyoti Escobar MD [address] [place] [id number] documented as of this encounter Goals Goal Patient Goal Type Associated Problems Recent Progress Patient-Stated? Author Safety ? Patient/family will have appropriate support at home upon discharge Lifestyle No Alex Lozano, venetian blind assembler - family caregiver with be involved [...] 70 - 109 12/11/2023 11:[address] [facility] 12/11/2023 11:2 5 AM CDT us Willem Lora MD POCT ORDERABLES - DEVICE Final R esult Performing Organization Address City/[facility] Co de Phone Number [facility] [address] [place] [address], [phone] * POCT glucose (12/11/2023 5:40 AM CDT) GLUCOSE POC 90 70 - 109 12/11/2023 5:[address] [facility] 12/11/2023 5:40 AM CDT us Willem Lora MD POCT ORDERABLES - DEVICE Final R esult Performing Organization Address City/[facility]/ZIP Co de Phone Number [facility] [address] [place] [address], [place] [phone] * (ABNORMAL) BASIC METABOLIC PANEL (12/11/2023 4:44 AM CDT) SODIUM S/P/B 137 136 - 145 MMOL/L 12/11/2023 5:[address] [facility] POTASSIUM S/P/B 3.7 3.5 - 5.1 MMOL/L 12/11/2023 5:[address] [facility] CHLORIDE S/P/B 101 97 - 115 MMOL/L 12/11/2023 5:[address] [facility] CO2 33.3(H) 21.0 - 32.0 MMOL/L 12/11/2023 5:[address] [facility] GLUCOSE 76 74 - 106 MG/DL 12/11/2023 5:[address] [facility] BUN 32(H) 7 - 18 MG/DL 12/11/2023 5:[address] [facility] CREATININE S/P/B 1.12 0.70 - 1.30 MG/DL 12/11/2023 5:[address] [facility] CALCIUM S/P/B 9.6 8.5 - 10.1 MG/DL 12/11/2023 5:[address] [facility] ANION GAP 2.7 2.0 - 10.0 MMOL/L 12/11/2023 5:[address] [facility] OSMOLALITY (CALC) 290 MOSM/KG 024 5:[address] [facility] Comment:REFERENCE RANGE NOT ESTABLISHED GFR ESTIMATE 73(L) >90 ML/MIN/1. 73 M2 12/11/2023 5:[address] [facility] GFR NOTES GFR REFERENCE S: 12/11/2023 5:[address] [facility] Comment: THE ESTIMATED GFR IS [...] MD LABORATORY Final Result Performing Organization Address City/[facility] Co de Phone Number [facility] [address] [place] [address], [place] [phone] * (ABNORMAL) POCT glucose (12/10/2023 8:55 PM CDT) GLUCOSE POC 131(H) 70 - 109 12/10/2023 8:[address] [facility] 12/10/2023 8:55 PM CDT us Dior Morales MD POCT ORDERABLES - DEVICE Final R esult Performing Organization Address [facility] de Phone Number [facility] [address] [place] [address], [place] [phone] * POCT glucose (12/10/2023 4:28 PM CDT) GLUCOSE POC 97 70 - 109 12/10/2023 5:[address] [facility] 12/10/2023 4:28 PM CDT us Dior Morales MD POCT ORDERABLES - DEVICE Final R esult Performing Organization Address [facility] Co de Phone Number [facility] [address] [place] [address], [place] [phone] * (ABNORMAL) POCT glucose (12/10/2023 11:13 AM CDT) GLUCOSE POC 117(H) 70 - 109 12/10/2023 11:[address] [facility] 12/10/2023 11:1 3 AM CDT us Dior Morales MD POCT ORDERABLES - DEVICE Final R esult Performing Organization Address City/[facility] Co de Phone Number [facility] [address] [place] [address], [place] [phone] * (ABNORMAL) MAGNESIUM (12/10/2023 7:06 AM CDT) Pathologist [facility] MAGNESIUM 2.7(H) 1.6 - 2.6 MG/DL 12/10/2023 7:[address] [facility] 12/10/2023 7:06 AM CDT Dior Morales MD LABORATORY Final Result Performing Organization Address [facility] de Phone Number [facility] [address] [place] [address], [place] [phone] * (ABNORMAL) COMPREHENSIVE METABOLIC PANEL (12/10/2023 7:06 AM CDT) SODIUM S/P/B 139 136 - 145 MMOL/L 12/10/2023 7:[address] [facility] POTASSIUM S/P/B 3.8 3.5 - 5.1 MMOL/L 12/10/2023 7:[address] [facility] CHLORIDE S/P/B 101 97 - 115 MMOL/L 12/10/2023 7:[address] [facility] CO2 31.7 21.0 - 32.0 MMOL/L 12/10/2023 7:[address] [facility] GLUCOSE 131(H) 74 - 106 MG/DL 12/10/2023 7:[address] [facility] BUN 35(H) 7 - 18 MG/DL 12/10/2023 7:[address] [facility] CREATININE S/P/B 1.40(H) 0.70 - 1.30 MG/DL 12/10/2023 7:[address] [facility] CALCIUM S/P/B 10.0 8.5 - 10.1 MG/DL 12/10/2023 7:[address] [facility] BILIRUBIN TOTAL S/P/B 0.6 0.2 - 1.0 MG/DL 12/10/2023 7:[address] [facility] ALKALINE PHOSPHATASE S/P/B 73 45 - 115 U/L 12/10/2023 7:[address] [facility] AST 18 15 - 37 U/L 12/10/2023 7:[address] [facility] ALT 33 16 - 61 U/L 12/10/2023 7:[address] [facility] TOTAL PROTEIN S/P/B 7.3 6.4 - 8.2 G/DL 12/10/2023 7:50 AM [facility] ALBUMIN S/P/B 2.9(L) 3.4 - 5.0 G/DL 12/10/2023 7:50 AM [facility] ANION GAP 6.3 2.0 - 10.0 MMOL/L 12/10/2023 7:50 AM [facility] OSMOLALITY (CALC) 298 MOSM/KG 024 7:50 AM [facility] Comment:REFERENCE RANGE NOT ESTABLISHED GFR ESTIMATE 56(L) >90 ML/MIN/1. 73 M2 12/10/2023 7:[address] [facility] GFR NOTES GFR REFERENCE S: 12/10/2023 7:50 AM [facility] Comment: THE ESTIMATED GFR IS [...] CDT Dior Morales MD LABORATORY Final Result [facility] [address] [place] [address], [phone] * (ABNORMAL) CBC W/DIFF AUTOMATED (12/10/2023 7:06 AM CDT) WBC 8.94 4.00 - 10.80 x10'3/uL 12/10/2023 7:[address] [facility] RBC 4.23(L) 4.50 - 6.10 x10'6/uL 12/10/2023 7:[address] [facility] HGB 11.5(L) 13.0 - 18.0 G/DL 12/10/2023 7:[address] [facility] HCT 38.3 37.0 - 52.0 % 12/10/2023 7:[address] [facility] MCV 90.5 78.0 - 100.0 FL 12/10/2023 7:[address] [facility] MCH 27.2 27.0 - 31.0 PG 12/10/2023 7:[address] [facility] MCHC 30.0(L) 33.0 - 36.0 G/DL 12/10/2023 7:[address] [facility] RDW 15.8(H) 11.5 - 14.5 % 12/10/2023 7:[address] [facility] PLT 266 150 - 350 x10'3/uL 12/10/2023 7:[address] [facility] MPV 11.0(H) 7.4 - 10.4 FL 12/10/2023 7:[address] [facility] ABS. NEUTROPHILS 5.10 1.60 - 8.30 x10'3/uL 12/10/2023 7:[address] [facility] ABS. LYMPHOCYTES 2.50 0.80 - 4.70 x10'3/uL 12/10/2023 7:[address] [facility] ABS. MONOCYTES 0.99 0.00 - 1.50 x10'3/uL 12/10/2023 7:[address] [facility] ABS. EOSINOPHILS 0.22 0.00 - 0.40 x10'3/uL 12/10/2023 7:[address] [facility] ABS. BASOPHILS 0.08 0.00 - 0.20 x10'3/uL 12/10/2023 7:[address] [facility] ABS. IMMATURE GRANULOCYTES 0.05(H) 0.00 - 0.03 x10'3/uL 12/10/2023 7:[address] [facility] ABS. NUCLEATED RBC'S 0.00 0.00 - 0.01 x10'3/uL 12/10/2023 7:[address] [facility] 12/10/2023 7:06 AM CDT Dior Morales MD LABORATORY Final Result [facility] [address] [place] [address], [id number] * POCT glucose (12/10/2023 6:27 AM CDT) GLUCOSE POC 104 70 - 109 12/10/2023 6:[address] [facility] 12/10/2023 6:27 AM CDT us Dior Morales MD POCT ORDERABLES - DEVICE Final R esult Performing Organization Address City/[facility]/ZIP Co de Phone Number [facility] [address] [place] [address], [place] [phone] * (ABNORMAL) POCT glucose (12/09/2023 9:12 PM CDT) GLUCOSE POC 210(H) 70 - 109 12/09/2023 9:[address] [facility] 12/09/2023 9:12 PM CDT us Dior Morales MD POCT ORDERABLES - DEVICE Final R esult Performing Organization Address [facility] Co de Phone Number [facility] [address] [place] [address], [place] [phone] * (ABNORMAL) POCT glucose (12/09/2023 3:25 PM CDT) GLUCOSE POC 180(H) 70 - 109 12/09/2023 3:[address] [facility] Comment:RN Notified 12/09/2023 3:25 PM CDT us Dior Morales MD POCT ORDERABLES - DEVICE Final R esult Performing Organization Address City/[facility] Co de Phone Number [facility] [address] [place] [address], [place] [phone] * (ABNORMAL) POCT glucose (12/09/2023 12:06 PM CDT) GLUCOSE POC 110(H) 70 - 109 12/09/2023 12:[address] [facility] Comment:RN Notified 12/09/2023 12:0 6 PM CDT Dior Morales MD POCT ORDERABLES - DEVICE Final R esult Performing Organization Address [facility] Co de Phone Number [facility] [address] [place] [address], [phone] * (ABNORMAL) POCT glucose (12/09/2023 6:00 AM CDT) GLUCOSE POC 157(H) 70 - 109 12/09/2023 6:[address] [facility] 12/09/2023 6:00 AM CDT Willem Lora MD POCT ORDERABLES - DEVICE Final R esult Performing Organization Address [facility] de Phone Number [facility] [address] [place] [address], [phone] * (ABNORMAL) BASIC METABOLIC PANEL (12/09/2023 4:40 AM CDT) SODIUM S/P/B 137 136 - 145 MMOL/L 12/09/2023 5:[address] [facility] POTASSIUM S/P/B 4.3 3.5 - 5.1 MMOL/L 12/09/2023 5:[address] [facility] Comment:SLIGHT HEMOLYSIS, RE SULT MAY BE AFFECTED. CHLORIDE S/P/B 100 97 - 115 MMOL/L 12/09/2023 5:[address] [facility] CO2 31.7 21.0 - 32.0 MMOL/L 12/09/2023 5:43 AM CDT [facility] GLUCOSE 144(H) 74 - 106 MG/DL 12/09/2023 5:[address] [facility] BUN 24(H) 7 - 18 MG/DL 12/09/2023 5:[address] [facility] CREATININE S/P/B 1.07 0.70 - 1.30 MG/DL 12/09/2023 5:[address] [facility] CALCIUM S/P/B 9.5 8.5 - 10.1 MG/DL 12/09/2023 5:[address] [facility] ANION GAP 5.3 2.0 - 10.0 MMOL/L 12/09/2023 5:[address] [facility] OSMOLALITY (CALC) 291 MOSM/KG 024 5:[address] [facility] Comment:REFERENCE RANGE NOT ESTABLISHED GFR ESTIMATE 77(L) >90 ML/MIN/1. 73 M2 12/09/2023 5:[address] [facility] GFR NOTES GFR REFERENCE S: 12/09/2023 5:[address] [facility] Comment: THE ESTIMATED GFR IS [...] m2 12/09/2023 4:40 AM CDT Leonela Farias [facility]- LABORATORY Final R esult [facility] [address] [place] [address], [phone] * (ABNORMAL) CBC W/DIFF AUTOMATED (12/09/2023 4:40 AM CDT) [facility] WBC 12.04(H) 4.00 - 10.80 x10'3/uL 12/09/2023 5:[address] [facility] RBC 4.11(L) 4.50 - 6.10 x10'6/uL 12/09/2023 5:[address] [facility] HGB 11.0(L) 13.0 - 18.0 G/DL 12/09/2023 5:[address] [facility] HCT 35.7(L) 37.0 - 52.0 % 12/09/2023 5:[address] [facility] MCV 86.9 78.0 - 100.0 FL 12/09/2023 5:[address] [facility] MCH 26.8(L) 27.0 - 31.0 PG 12/09/2023 5:[address] [facility] MCHC 30.8(L) 33.0 - 36.0 G/DL 12/09/2023 5:[address] [facility] RDW 15.5(H) 11.5 - 14.5 % 12/09/2023 5:[address] [facility] PLT 236 150 - 350 x10'3/uL 12/09/2023 5:[address] [facility] MPV 11.2(H) 7.4 - 10.4 FL 12/09/2023 5:[address] [facility] ABS. NEUTROPHILS 9.38(H) 1.60 - 8.30 x10'3/uL 12/09/2023 5:[address] [facility] ABS. LYMPHOCYTES 1.40 0.80 - 4.70 x10'3/uL 12/09/2023 5:[address] [facility] ABS. MONOCYTES 1.14 0.00 - 1.50 x10'3/uL 12/09/2023 5:[address] [facility] ABS. EOSINOPHILS 0.00 0.00 - 0.40 x10'3/uL 12/09/2023 5:[address] [facility] ABS. BASOPHILS 0.03 0.00 - 0.20 x10'3/uL 12/09/2023 5:[address] [facility] ABS. IMMATURE GRANULOCYTES 0.09(H) 0.00 - 0.03 x10'3/uL 12/09/2023 5:[address] [facility] ABS. NUCLEATED RBC'S 0.00 0.00 - 0.01 x10'3/uL 12/09/2023 5:[address] [facility] 12/09/2023 4:40 AM CDT Leonela Farias [facility]- LABORATORY Final R esult Performing Organization Address City/[facility]/ZIP Co de Phone Number [facility] [address] [place] [address], [phone] * (ABNORMAL) POCT glucose (12/08/2023 8:50 PM CDT) [facility] GLUCOSE POC 249(H) 70 - 109 12/08/2023 8:[address] [facility] 12/08/2023 8:50 PM CDT Willem Lora MD POCT ORDERABLES - DEVICE Final R esult Performing Organization Address City/[facility]/ZIP Co de Phone Number [facility] [address] [place] [address], [phone] * (ABNORMAL) TROPONIN, QUANT (12/08/2023 7:39 PM CDT) TROPONIN I HIGH SENSITIVITY 119(H) 0 - 78 ng/L 12/08/2023 8:[address] [facility] 12/08/2023 7:39 PM CDT [facility] Final R esult Performing Organization Address [facility] Co de Phone Number [facility] [address] [place] [address], [phone] * (ABNORMAL) POCT glucose (12/08/2023 4:23 PM CDT) [facility] GLUCOSE POC 264(H) 70 - 109 12/08/2023 4:[address] [facility] 12/08/2023 4:23 PM CDT Willem Lora MD POCT ORDERABLES - DEVICE Final R esult Performing Organization Address [facility] de Phone Number [facility] [address] [place] [address], [phone] * XR CHEST PORTABLE (12/08/2023 3:19 PM [...] CDT ?Echocardiography Report Pat.Name: ??ELZA MCKEON ?Pat.ID: ?[id number] ? St.Date: ?? 12/08/2023 ? Refer.: ??[id number] WALE Stark ? EWDPROV ?EWDPROV Exam Time: [...] ?? Value ?181 g ? LV Mass [id number] ?? Value ? 72.7 g/m2 ? RA [...] 12/09/2023 Echocardiography Report Pat.Name: ELZA MCKEON Pat.ID: [id number] .Date: 12/08/2023 Refer.: [id number] WALE Stark EWDPROV EWDPROV Exam Time: 2:29:00 [...] Mass 2D Value 181 g LV Mass [id number] Value 72.7 g/m2 RA Volume Atrial Do [...] 09:54 AM Jodie Sheth M.D. Leonela Farias [facility]-BC ECHO Final R esult * (ABNORMAL) PRO-BRAIN NATRIURETIC PEPTIDE (12/08/2023 2:22 PM CDT) PRO-B TYPE NATRIURETIC PEPTIDE 526(H) <125 PG/ML 12/08/2023 2:[address] [facility] Comment: AGE INDEPENDENT: <300 PG/ML [...] CHF. 12/08/2023 2:22 PM CDT Leonela Farias [facility] LABORATORY Final R esult Performing Organization Address [facility] Co de Phone Number [facility] [address] [place] [address], [phone] * PROCALCITONIN (PCT) (12/08/2023 2:22 PM CDT) Procalcitonin 0.06 0.00 - 0.49 NG/ML 12/09/2023 9:[address] [facility] 12/08/2023 2:22 PM CDT Leonela Farias [facility]ORATORY Final R esult Performing Organization Address [facility] de Phone Number [facility] [address] [place] [address], [place] [phone] * (ABNORMAL) TROPONIN, QUANT (12/08/2023 2:22 PM CDT) TROPONIN I HIGH SENSITIVITY 155(H) 0 - 78 ng/L 12/08/2023 2:[address] [facility] 12/08/2023 2:22 PM CDT [facility] Sandhya Farias [facility] LABORATORY Final R esult Performing Organization Address City/[facility] Co de Phone Number [facility] [address] [place] [address], [phone] * (ABNORMAL) HEMOGLOBIN, GLYCATED (12/08/2023 2:22 PM CDT) HGB A1C 7.0(H) <5.7 % 12/08/2023 3:[address] [facility] ESTIMATED AVG GLUCOSE 154(H) 74 - 114 MG/DL 12/08/2023 3:[address] [facility] 12/08/2023 2:22 PM CDT Leonela Farias [facility]OR[facility] Final R esult Performing Organization Address [facility] Co de Phone Number [facility] [address] [place] [address], [phone] * MAGNESIUM (12/08/2023 2:22 PM CDT) MAGNESIUM 2.2 1.6 - 2.6 MG/DL 12/08/2023 2:[address] [facility] 12/08/2023 2:22 PM CDT Leonela Farias [facility] LABORAT[facility] Final R esult Performing Organization Address [facility]/ZIP Co de Phone Number [facility] [address] [place] [address], [phone] * (ABNORMAL) COMPREHENSIVE METABOLIC PANEL (12/08/2023 2:22 PM CDT) SODIUM S/P/B 134(L) 136 - 145 MMOL/L 12/08/2023 2:[address] [facility] POTASSIUM S/P/B 4.6 3.5 - 5.1 MMOL/L 12/08/2023 2:[address] [facility] CHLORIDE S/P/B 100 97 - 115 MMOL/L 12/08/2023 2:[address] [facility] CO2 27.0 21.0 - 32.0 MMOL/L 12/08/2023 2:[address] [facility] GLUCOSE 251(H) 74 - 106 MG/DL 12/08/2023 2:[address] [facility] BUN 17 7 - 18 MG/DL 12/08/2023 2:[address] [facility] CREATININE S/P/B 1.15 0.70 - 1.30 MG/DL 12/08/2023 2:[address] [facility] CALCIUM S/P/B 9.3 8.5 - 10.1 MG/DL 12/08/2023 2:[address] [facility] BILIRUBIN TOTAL S/P/B 0.8 0.2 - 1.0 MG/DL 12/08/2023 2:[address] [facility] ALKALINE PHOSPHATASE S/P/B 89 45 - 115 U/L 12/08/2023 2:[address] [facility] AST 21 15 - 37 U/L 12/08/2023 2:[address] [facility] ALT 40 16 - 61 U/L 12/08/2023 2:[address] [facility] TOTAL PROTEIN S/P/B 7.7 6.4 - 8.2 G/DL 12/08/2023 2:[address] [facility] ALBUMIN S/P/B 3.0(L) 3.4 - 5.0 G/DL 12/08/2023 2:[address] [facility] ANION GAP 7.0 2.0 - 10.0 MMOL/L 12/08/2023 2:[address] [facility] OSMOLALITY (CALC) 288 MOSM/KG 024 2:[address] [facility] Comment:REFERENCE RANGE NOT ESTABLISHED GFR ESTIMATE 71(L) >90 ML/MIN/1. 73 M2 12/08/2023 2:[address] [facility] GFR NOTES GFR REFERENCE S: 12/08/2023 2:[address] [facility] Comment: THE ESTIMATED GFR IS [...] m2 12/08/2023 2:22 PM CDT Leonela Farias [facility] Final R esult Performing Organization Address City/[facility] Co de Phone Number [facility] [address] [place] [address], [place] [phone] * (ABNORMAL) PROTHROMBIN TIME, VENOUS (12/08/2023 2:22 PM CDT) PROTIME 15.7(H) 9.4 - 12.5 SEC 12/08/2023 2:[address] [facility] INR 1.4(H) 0.8 - 1.1 12/08/2023 2:[address] [facility] 12/08/2023 2:22 PM CDT Leonela Farias [facility] Final R esult Performing Organization Address City/[facility] Co de Phone Number [facility] [address] [place] [address], [place] [phone] * (ABNORMAL) CBC W/DIFF AUTOMATED (12/08/2023 2:22 PM CDT) [facility] WBC 9.58 4.00 - 10.80 x10'3/uL 12/08/2023 2:[address] [facility] RBC 4.03(L) 4.50 - 6.10 x10'6/uL 12/08/2023 2:[address] [facility] HGB 11.1(L) 13.0 - 18.0 G/DL 12/08/2023 2:[address] [facility] HCT 35.3(L) 37.0 - 52.0 % 12/08/2023 2:[address] [facility] MCV 87.6 78.0 - 100.0 FL 12/08/2023 2:[address] [facility] MCH 27.5 27.0 - 31.0 PG 12/08/2023 2:[address] [facility] MCHC 31.4(L) 33.0 - 36.0 G/DL 12/08/2023 2:[address] [facility] RDW 15.5(H) 11.5 - 14.5 % 12/08/2023 2:[address] [facility] PLT 202 150 - 350 x10'3/uL 12/08/2023 2:[address] [facility] MPV 11.0(H) 7.4 - 10.4 FL 12/08/2023 2:[address] [facility] ABS. NEUTROPHILS 8.65(H) 1.60 - 8.30 x10'3/uL 12/08/2023 2:[address] [facility] ABS. LYMPHOCYTES 0.63(L) 0.80 - 4.70 x10'3/uL 12/08/2023 2:[address] [facility] ABS. MONOCYTES 0.23 0.00 - 1.50 x10'3/uL 12/08/2023 2:[address] [facility] ABS. EOSINOPHILS 0.00 0.00 - 0.40 x10'3/uL 12/08/2023 2:[address] [facility] ABS. BASOPHILS 0.02 0.00 - 0.20 x10'3/uL 12/08/2023 2:[address] [facility] ABS. IMMATURE GRANULOCYTES 0.05(H) 0.00 - 0.03 x10'3/uL 12/08/2023 2:[address] [facility] ABS. NUCLEATED RBC'S 0.00 0.00 - 0.01 x10'3/uL 12/08/2023 2:[address] [facility] 12/08/2023 2:22 PM CDT Leonela Farias [facility] Final R esult [facility] [address] [place] [address], [id number] * ECG 12 lead (12/08/2023 2:12 PM CDT) 12/08/2023 2:12 PM CDT Narrative [facility] - 12/09/2023 4:43 PM CDT ? [facility] ?[address] [place], [place] ??[address] ? Test Date: ?2023-12-08 Pat Name: ? ELZA MCKEON ? Department: ?? 1 ? Room: ? 510AA Gender: ? Male ? 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 Ll : ?1960 ? Requested By: LEONELA DINORA Order Number: [id number] ? Reading MD: ?? Kyle Mckeon ? Measurements Intervals ?Tangent ? Rate: ? 82 ? P: ?73 NH: ? 195 ?QRS: ?61 QRSD: ? 142 ?T: ?17 QT: ? 398 ? QTc: ?466 ? 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: Lisa : 1960 Requested By: LEONELA FARIAS Order Number: [id number] Reading MD: Kyle Mckeon Measurements Intervals Tangent Rate: 82 P: 73 NH: 195 QRS: 61 QRSD: 142 T: 17 QT: 398 QTc: 466 Interpretive Statements SINUS RHYTHM WITH OCCASIONAL SUPRAVENTRICULAR PREMATURE COMPLEXES RIGHT BUNDLE BRANCH BLOCK [120+ ms QRS DURATION, UPRIGHT V1, 40+ ms SIN I/aVL/V4/V5/V6] Leonela Farias [facility]- ECG ORDERABLES Final R esult [facility] documented in this encounter Visit Diagnoses Diagnosis CHF exacerbation ([facility])- Primary Congestive heart failure, unspecified S/P ablation of atrial fibrillation Other postprocedural status CHF (congestive heart failure) ([facility]) Congestive heart failure, unspecified Acute on chronic systolic congestive heart failure ([facility]) Acute on chronic systolic heart failure Acute on chronic combined systolic and diastolic congestive heart failure ([facility]) Acute on chronic combined systolic and diastolic heart failure CHF exacerbation ([facility]) Congestive heart failure, unspecified Essential hypertension Unspecified essential hypertension Hyperlipidemia Other and unspecified hyperlipidemia 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 Coronary artery disease Coronary atherosclerosis of unspecified type of vessel, [place] or graft documented in this encounter Admitting Diagnoses Diagnosis CHF exacerbation ([facility]/HCC) Congestive heart failure, unspecified documented in this [...] Daily, First dose (after last modification) on [email or web address]] 12/10/23 at 0900, Until Discontinued, Patient Using [...] 0807 (Given - Provider: Ave Yost RN) traMADol (ULTRAM) tablet 50 mg 50 mg, Oral, 3 times daily, First dose on Vika 12/08/23 at 1600, Until Discontinued 0820 (Given - Provider: Cahrlotte Mirza LPN)1655 (Given - Provider: Charlotte Mirza LPN)2045 (Given - Provider: Atul Gaitan RN) 0800 (Given - Provider: Ave Yost RN)1708 (Given - Provider: Ave Yost, CAROLINA)2107 (Given - Provider: Gomez Vigil [...] option. documented in this encounter Care Teams Food Dehydrator Operator Relationship Specialty Start Date End Date Ti Zamora MD [address] [place] [address] PCP - General FAMILY PRACTICE 12/03/21 Elza Allan MD [employer] Conductor CARDIOVASCULAR DISEASE 08/19/16 Raul Santana MD CLINICAL CARDIAC ELECTROPHYSIOLOGY 06/16/17 Danny Blackwell MD [address] [place] [address] ORTHOPAEDIC SURGERY 05/01/19 Gayle Arce APRN, FOAM FABRICATOR-C [address] [facility] [address] [place] [address] NURSE PRACTITIONER 03/03/20 Mendel Shah DPM [address] [place] [address] [place] [address] Consulting Physician PODIATRY/SURGERY 06/27/23 06/26/24 documented as of this encounter
--- OUTSIDE RECORDS SUMMARY | 2024-04-23 05:13 | XMS_ITS | Encounter Summary ---
Author Organization [facility] Address [address] [place] [address]. [place], [place] [address] [place] [address] Care Team Providers Care Derrick Boat Operator Name Role Phone Elza Allan MD Unavailable Unavailabl Raul Duran MD Unavailable Unavailabl Danny Lopes MD Unavailable [phone] Gayle Arce APRN, NP-C Unavailable Ti Zamora MD Primary Care Provider Mendel Shah DPM Unavailable [phone] Jyoti Escobar MD Unavailable [phone] Reason for Visit * Reason Comments Follow Up Atrial Flutter Atrial Fibrillation Encounter Details Date Type Department Care Team ([facility] Contact Info) Description 02/29/2024 2:00 PM ELECTROMEDICAL SERVICE ENGINEER Office Visit [facility] [address] [place] [address] Nandini Salcido NP [address] [facility]. [address] [place] [address] Follow Up; Atrial Flutter; Atrial Fibrillation Social History Tobacco Use Types Packs/Day Years Used Date Smoking Tobacco: Never Smokeless Tobacco: Never Alcohol Use Standard Drinks/Week Comments Yes 0 (1 standard drink = 0.6 oz pur e alcohol) social C Utilities Answer Date Recorded In the past 12 months has [employer], gas, oil, or water [employer] threatened to shut off services in your [...] any time in the past 12 m [facility], were you homeless or living in a retirement (including now)? 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 on file Not on file Not on file documented as of this encounter Last Filed Vital Signs Vital Sign Reading Time Taken Comments Blood Pressure 110/66 02/29/2024 1:50 PM ELECTROMEDICAL SERVICE ENGINEER Pulse 89 02/29/2024 1:50 PM ELECTROMEDICAL SERVICE ENGINEER ekg Temperature - - Respiratory Rate 18 02/29/2024 1:50 PM ELECTROMEDICAL SERVICE ENGINEER Oxygen Saturation 96% 02/29/2024 1:50 PM ELECTROMEDICAL SERVICE ENGINEER Inhaled Oxygen Concentration - - Weight 133.9 kg (295 lb 3.2 oz) 02/29/2024 1:50 PM ELECTROMEDICAL SERVICE ENGINEER Height 177.8 cm (5' 10 ) 02/29/2024 1:50 PM ELECTROMEDICAL SERVICE ENGINEER Body Mass Index 42.36 02/29/2024 1:50 PM ELECTROMEDICAL SERVICE ENGINEER documented in this encounter Functional Status * [...] PROVIDER: No ref. provider found PCP: TI ZAOMRA MD Reason for Visit Persistent atrial fibrillation [...] working. He has a follow up with [facility] pulmonary in May in [place]. He denies palpitations, dizziness, lightheadedness, presyncope, or [...] emptying with his PCP. He will contact [facility] to see if he can be seen sooner in [place]. Gayle Arce NP came to evaluate him for chest pain. Continue Eliquis for stroke prevention. Continue Toprol for rate control. We will see him in follow up in 6 months, sooner if needed. Medications Current Outpatient Medications: gabapentin (NEURONTIN) 600 MG tablet, , Disp: , Rfl: HUMALOG KWIKPEN 100 UNIT/ML injection (PEN), , Disp: , Rfl: TRUEPLUS 5-BEVEL PEN NEEDLES 29G X 12.7MM [facility], , Disp: , Rfl: amitriptyline 100 MG tablet, Take 1 tablet (100 mg total) by mouth nightly at bedtime., Disp: , Rfl: aspirin 81 MG chewable tablet, Chew 1 tablet (81 mg total) by mouth daily., Disp: , Rfl: atorvastatin (LIPITOR) 40 MG tablet, Take 0.5 tablets (20 mg total) by mouth nightly at bedtime., Disp: 45 tablet, Rfl: 3 Continuous Glucose Tractor Operator Laser Leveling (FREESTYLE LI 3 READER) Device, Inject 1 [...] TRUEPLUS PEN NEEDLES 31G X 8 MM [facility], , Disp: , Rfl: Allergies Review of patient's allergies indicates: Allergen Reactions Tetracyclines & Related Other (see comment) Blisters in the mouth Doxycycline Other (see comment) and Rash Blisters in the mouth Past History Past Medical History: Diagnosis Date Abnormal stress test Arthritis 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 Coronary artery disease Diabetes ([facility]/HCC HHS/HCC) Diabetic ulcer of toe [...] CATHETERIZATION 01/04/2018 occluded prox RCA w/well developed cbne-an-igyjb collaterals lvef 55-60% CARDIAC CATHETERIZATION 11/13/2018 FRACTURE SURGERY HC TOTAL KNEE REVISION Right 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 Signed NANDINI SALCIDO NP 02/29/2024 TROMEDICAL SERVICE ENGINEER documented in this encounter Plan of Treatment Upcoming Encounters Date Type Department Care Team (Late st Contact Info) Description 04/25/2024 11:00 AM ELECTROMEDICAL SERVICE ENGINEER Appointment [facility] [address] [place] [address] [place] [address] Ti Zamora MD [address] [place] [phone] 05/23/2024 3:30 PM ELECTROMEDICAL SERVICE ENGINEER Office Visit [facility] [place] [address] Jyoti Escobar MD [address] [place] [phone] documented as of this encounter Goals Goal Patient Goal Type Associated Problems Recent Progress Patient-Stated? Author Safety ? Patient/family will have appropriate support at home upon discharge Lifestyle No Alex Lozano, director of undergraduate admissions - family caregiver with be involved in care transitions and discharge planning Lifestyle No Alex Lozano, RN Patient will return to prior living situation and remain independent in ADLs upon discharge from hospital Lifestyle No Alex Lozaon, RN documented as of this encounter Procedures Procedure Name Priority Date/Time Associated Diagnosis Comments ELECTROCARDIOGRAM (NON MIDMARK ACQUIRED) Routine 02/29/2024 1:57 PM ELECTROMEDICAL SERVICE ENGINEER Paroxysmal atrial fibrillation (CMS/HCC HHS/HCC) Atypical atrial flutter (CMS/HCC HHS/HCC) documented in this encounter Results * ELECTROCARDIOGRAM (02/29/2024 1:57 PM ELECTROMEDICAL SERVICE ENGINEER) 02/29/2024 1:57 PM ELECTROMEDICAL SERVICE ENGINEER Narrative [facility] - 03/08/2024 4:06 PM ELECTROMEDICAL SERVICE ENGINEER ? [facility] ?[address] [place], [place] ??[address] ? Test Date: ?2024-02-29 Pat Name: ? ELZA MCKEON ? Department: ?? 105 ? Room: ? Gender: ? Male ? Community Relations Manager: ?? dp : ?1960 ? Requested By: JOSHUA YIN Order Number: [id number] ?Reading MD: ?? Nasaraiah Nallamothu ? Measurements Intervals ?[place] ? Rate: ? 89 ? P: ?34 NM: ? 143 ?QRS: ?78 QRSD: ? 102 ?T: ?49 QT: ? 360 ? QTc: ?440 ? Interpretive Statements SINUS RHYTHM LOW QRS VOLTAGE IN PRECORDIAL LEADS INCOMPLETE RIGHT BUNDLE BRANCH BLOCK TROMEDICAL SERVICE ENGINEER Procedure Note Carlos Sheth MD - 03/08/2024 [facility], [facility] [address] [place] [address] Test Date: 2024-02-29 Pat Name: [facility] Department: 105 Room: Gender: Male Community Relations Manager: daniel : 1960 Requested By: JOSHUA YIN Order Number: [id number] Reading MD: Reyna Measurements Intervals [place] Rate: 89 P: 34 NM: 143 QRS: 78 QRSD: 102 T: 49 QT: 360 QTc: 440 Interpretive Statements SINUS RHYTHM LOW QRS VOLTAGE IN PRECORDIAL LEADS INCOMPLETE RIGHT BUNDLE BRANCH BLOCK TROMEDICAL SERVICE ENGINEER us Joshua Yin MD PROCEDURES-ORDERABLE NO CHARGE F inal Result [facility] documented in this encounter Visit Diagnoses Diagnosis Atypical atrial flutter (CMS/HCC HHS/HCC)- Primary Atrial flutter Paroxysmal atrial fibrillation (CMS/HCC HHS/HCC) Atrial fibrillation documented in this encounter Care Teams Derrick Boat Operator Relationship Specialty Start Date End Date Ti Zamora MD [address] [place] [phone] PCP - General FAMILY PRACTICE 12/03/21 Elza Allan MD [place] Barrel Cooper CARDIOVASCULAR DISEASE 08/19/16 Raul Santana MD CLINICAL CARDIAC ELECTROPHYSIOLOGY 06/16/17 Danny Blackwell MD [address] [place] [address] ORTHOPAEDIC SURGERY 05/01/19 Gayle Arce APRN, BATON TEACHER-C [address] [place] [address] [phone] NURSE PRACTITIONER 03/03/20 Mendel Shah DPM [address] [place] [address] Consulting Physician PODIATRY/SURGERY 06/27/23 06/26/24 Jyoti Escobar MD [address] [place] [phone] INTERVENTIONAL CARDIOLOGY 12/27/23 documented as of this encounter
--- OUTSIDE RECORDS SUMMARY | 2024-04-23 05:13 | XMS_ITS | Encounter Summary ---
Author Organization [facility] Address [address] [place] [address]. [place] [address] [place] [address] Care Team Providers Care Fishing Worker Name Role Phone Evaristo Allan MD Unavailable Unavailabl Raul Duran MD Unavailable Unavailabl Danny Lopes MD Unavailable [phone] Gayle Arce APRN SUPERVISOR LIQUID YEAST-C Unavailable Ti Bonilla MD Primary Care Provider Mendel Shah DPSallie Unavailable [phone] Reason for Visit * Reason Onset Date Comments Appointment Request 12/09/2023 Encounter Details Date Type Department Care Team (Late st Contact Info) Description 12/09/2023 Telephone [facility] [address] [place] [address] Carlos Sheth MD [address] [facility] [address] [place] [address] Appointment Request Social History Tobacco [...] any time in the past 12 m [facility], were you homeless or living in a penitentiary (including now)? 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 * Carlos Sheth MD - 12/09/2023 2:12 PM CDT Patient was hospitalized in November 2023 with exacerbation of CHF. Please see me in office in next 2to 4 weeks. documented in this encounter Plan of Treatment Upcoming Encounters Date Type Department Care Team (Late st Contact Info) Description 04/25/2024 11:00 AM COVER SEAMER Appointment [facility] [address] [place] [address] [place] [address] Ti Bonilla MD [address] [place] [phone] 05/23/2024 3:30 PM COVER SEAMER Office Visit [facility] [address] [place] [address] [place] [address] Jyoti Escobar MD [address] [place] [address] documented as of this encounter Goals Goal Patient Goal Type Associated Problems Recent Progress Patient-Stated? Author Safety ? Patient/family will have appropriate support at home upon discharge Lifestyle No Alex Lozano, cub reporter - family caregiver with be involved in care transitions and discharge planning Lifestyle No Alex Lozano, RN Patient will return to prior living situation and remain independent in ADLs upon discharge from hospital Lifestyle No Alex Lozano RN documented as of this encounter Visit Diagnoses Not on filedocumented in this encounter Care Teams Fishing Worker Relationship Specialty Start Date End Date Ti Bonilla MD [address] [place] [phone] PCP - General FAMILY PRACTICE 12/03/21 Evaristo Allan MD [place] Form Coverer CARDIOVASCULAR DISEASE 08/19/16 Raul Santana MD CLINICAL CARDIAC ELECTROPHYSIOLOGY 06/16/17 Danny Blackwell MD [address] [place], [place] [phone] ORTHOPAEDIC SURGERY 05/01/19 Gayle Arce, FISHER CLAM, SUPERVISOR LIQUID YEAST-C [address] [facility] [address] [place] [address] NURSE PRACTITIONER 03/03/20 Mendel Shah DPM [address] [place] [address] Consulting Physician PODIATRY/SURGERY 06/27/23 06/26/24 documented as of this encounter
--- OUTSIDE RECORDS SUMMARY | 2024-04-23 05:13 | XMS_ITS | Encounter Summary ---
Author Organization [facility] Address [address] [place] [address]. [place] [address] [place] [address] Care Team Providers Care Product Marketing Consultant Name Role Phone Elza Allan MD Unavailable Unavailabl Raul Duran MD Unavailable Unavailabl Danny Lopes MD Unavailable [phone] Gayle Arce APRN, COMPANION-C Unavailable [phone] Ti Bonilla MD Primary Care Provider Mendel Shah DPM Unavailable [phone] Encounter Details Date Type Department Care Team (Late st Contact Info) Description 12/01/2023 Orders Only [facility] [address] [place] [address] Joshua Yin MD [address] [place] [address] Social History Tobacco Use Types [...] 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 Not [...] st Contact Info) Description 04/25/2024 11:00 AM CERTIFICATION OFFICER Appointment [facility] [address] [place] [address] Ti Bonilla MD [address] [place] [phone] 05/23/2024 3:30 PM CERTIFICATION OFFICER Office Visit [facility] [address] [place] [phone] Jyoti Escobar MD [address] [place] [address] documented as of this encounter Results * ELECTROCARDIOGRAM (12/02/2023 1:53 PM CDT) 12/02/2023 1:53 PM CDT Narrative [facility] - 12/13/2023 10:09 AM CDT ? [facility], [facility] ?[address] [place], [place] ??[address] ? Test Date: ?2023-12-02 Pat Name: ? ELZA MCKEON ? Department: ?? 105 ? Room: ? Gender: ? Male ? Physician Office Nurse: ?? ssb : ?1960 ? Requested By: JOSHUA LAWA Order Number: [id number] ?Reading MD: ?? Leonid Khan ? Measurements Intervals ?[place] ? Rate: ? 92 ? P: ? [place]: ? 0 ?QRS: ?81 QRSD: ? 109 ?T: ?43 QT: ? 389 ? QTc: ?483 ? Interpretive Statements ATRIAL FLUTTER/TACHYCARDIA WITH ABERRANT CONDUCTION OR VENTRICULAR PREMATURE COMPLEXES LOW QRS VOLTAGE IN PRECORDIAL LEADS INCOMPLETE RIGHT BUNDLE BRANCH BLOCK MODERATE ST DEPRESSION Procedure Note Leonid Khan MD - 12/13/2023 [facility], [facility] [address] [place] [address] Test Date: 2023-12-02 Pat Name: [facility] Department: [facility] Room: Gender: Male Physician Office Nurse: alena : 1960 Requested By: JOSHUA YIN Order Number: [id number] Reading MD: Leonid Khan Measurements Intervals [place] Rate: 92 P: [place]: 0 QRS: 81 QRSD: 109 T: 43 QT: 389 QTc: 483 Interpretive Statements ATRIAL FLUTTER/TACHYCARDIA WITH ABERRANT CONDUCTION OR VENTRICULARPREMATURE COMPLEXES LOW QRS VOLTAGE IN PRECORDIAL LEADS INCOMPLETE RIGHT BUNDLE BRANCH BLOCK MODERATE ST DEPRESSION us Joshua Yin MD PROCEDURES-ORDERABLE NO CHARGE F inal Result [facility] documented in this encounter Visit Diagnoses Diagnosis Paroxysmal atrial fibrillation (CMS/HCC HHS/HCC)- Primary Atrial fibrillation Atypical atrial flutter (CMS/HCC HHS/HCC)- Primary Atrial flutter Paroxysmal atrial fibrillation (CMS/HCC HHS/HCC) Atrial fibrillation documented in this encounter Care Teams Product Marketing Consultant Relationship Specialty Start Date End Date Ti Bonilla MD [address] [place] [address] PCP - General FAMILY PRACTICE 12/03/21 Elza Allan MD [place] Cytogeneticist CARDIOVASCULAR DISEASE 08/19/16 Raul Santana MD CLINICAL CARDIAC ELECTROPHYSIOLOGY 06/16/17 Danny Blackwell MD [address] [place], [place] [phone] ORTHOPAEDIC SURGERY 05/01/19 Gayle Arce APRN, COMPANION-C [address] [facility] [address] [place] [phone] NURSE PRACTITIONER 03/03/20 Mendel Shah DPM [address] [place] [address] [place] [address] Consulting Physician PODIATRY/SURGERY 06/27/23 06/26/24 documented as of this encounter
--- OUTSIDE RECORDS SUMMARY | 2024-04-23 05:13 | XMS_ITS | Encounter Summary ---
Author Organization [facility] Address [address] [place] [address]. [place] [address] [place] [address] Care Team Providers Care Blast Furnace Checker Name Role Phone Evaristo Allan MD Unavailable Unavailabl Raul Duran MD Unavailable Unavailabl Danny Lopes MD Unavailable [phone] Gayle Arce APRN, CARPENTER HELPER HARDWOOD FLOORING-C Unavailable Ti Bonilla MD Primary Care Provider Mendel Shah DPM Unavailable [phone] Reason for Visit * Reason Onset Date Comments Appointment Reminder 12/23/2023 Encounter Details Date Type Department Care Team ([facility] st Contact Info) Description 12/23/2023 Telephone [facility] [address] [place] [address] Gayle Arce APRN, CARPENTER HELPER HARDWOOD FLOORING-C [address] [facility] [address] [place] [address] Appointment Reminder Social History Tobacco Use Types Packs/Day Years Used Date Smoking Tobacco: Never Smokeless Tobacco: Never Alcohol Use Standard Drinks/Week Comments Yes 0 (1 standard drink = 0.6 oz pur e alcohol) social [facility] Utilities Answer Date Recorded In the past [...] any time in the past 12 m [facility], were you homeless or living in a correction (including now)? 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 [address] [facility] [place] [address] Ti Bonilla MD [address] [place] [phone] 05/23/2024 3:30 PM SPORTS REPORTER Office Visit [facility] [address] [place] [phone] Jyoti Escobar MD [address] [place], [place] [address] documented as of this encounter Goals Goal Patient Goal Type Associated Problems Recent Progress Patient-Stated? Author Safety ? Patient/family will have appropriate support at home upon discharge Lifestyle No Alex Lozano, cashier - family caregiver with be involved in care transitions and discharge planning Lifestyle No Alex Lozano, RN Patient will return to prior living situation and remain independent in ADLs upon discharge from hospital Lifestyle No Alex Lozano RN documented as of this encounter Visit Diagnoses Not on filedocumented in this encounter Care Teams Blast Furnace Checker Relationship Specialty Start Date End Date Ti Bonilla MD [address] [place] [phone] PCP - General FAMILY PRACTICE 12/03/21 Evaristo Allan MD [place] Crane Oiler CARDIOVASCULAR DISEASE 08/19/16 Raul Santana MD CLINICAL CARDIAC ELECTROPHYSIOLOGY 06/16/17 Danny Blackwell MD [address] [place], [place] [phone] ORTHOPAEDIC SURGERY 05/01/19 Gayle Arce APRN, CARPENTER HELPER HARDWOOD FLOORING-C [address] [facility] [address] [place] [address] NURSE PRACTITIONER 03/03/20 Mendel Shah DPM [address] [place] [address] Consulting Physician PODIATRY/SURGERY 06/27/23 06/26/24 documented as of this encounter
--- OUTSIDE RECORDS SUMMARY | 2024-04-23 05:13 | XMS_ITS | Encounter Summary ---
Author Organization [facility] Address [address] [place] [address]. [place], [place] [address] [place] [address] Care Team Providers Care Deck Builder Name Role Phone Evaristo Allan MD Unavailable Unavailabl Raul Duran MD Unavailable Unavailabl Danny Lopes MD Unavailable [phone] Gayle Arce APRN, MUNICIPAL ENGINEER-C Unavailable Ti Bonilla MD Primary Care Provider Mendel Shah DPM Unavailable [phone] Encounter Details Date Type Department Care Team [...] st Contact Info) Description 04/25/2024 11:00 AM JAVA WEB APPLICATION DEVELOPER Appointment [facility] [address] [place] [address] [place] [address] Ti Bonilla MD [address] [place] [phone] 05/23/2024 3:30 PM JAVA WEB APPLICATION DEVELOPER Office Visit [facility] [address] [facility] [place] [phone] Jyoti Escobar MD [address] [place] [address] documented as of this encounter Visit Diagnoses Not on filedocumented in this encounter Care Teams Deck Builder Relationship Specialty Start Date End Date Ti Bonilla MD [address] [place] [phone] PCP - General FAMILY PRACTICE 12/03/21 Evaristo Allan MD [place] Hand Spinner CARDIOVASCULAR DISEASE 08/19/16 Raul Santana MD CLINICAL CARDIAC ELECTROPHYSIOLOGY 06/16/17 Danny Blackwell MD [address] [place] [address] ORTHOPAEDIC SURGERY 05/01/19 Gayle Arce, FIRE TECHNICIAN, MUNICIPAL ENGINEER-C [address] [facility] [address] [place] [address] NURSE PRACTITIONER 03/03/20 Mendel Shah DPM [address] [place] [address] Consulting Physician PODIATRY/SURGERY 06/27/23 06/26/24 documented as of this encounter
--- OUTSIDE RECORDS SUMMARY | 2024-04-23 05:13 | XMS_ITS | Encounter Summary ---
Author Organization [facility] Address [address] [place] [address]. [place], [place] [address] [place] [address] Care Team Providers Care Muleser Name Role Phone Evaristo Allan MD Unavailable Unavailabl Raul Duran MD Unavailable Unavailabl Danny Lopes MD Unavailable [phone] Gayle Arce APRN, SIMULATION SOFTWARE ENGINEER-C Unavailable Ti Bonilla MD Primary Care Provider Mendel Shah DPM Unavailable [phone] Jyoti Escobar MD Unavailable [phone] Encounter Details Date Type Department Care Team (Late st Contact Info) Description 12/13/2023 Hospital Follow-up Call [facility] [address] [place] [address] April Shi, RN Social History Tobacco Use Types Packs/Day Years Used Date Smoking Tobacco: Never Smokeless Tobacco: Never Alcohol Use Standard Drinks/Week Comments Yes 0 (1 standard drink = 0.6 oz pur e alcohol) social [facility] Utilities Answer Date Recorded In [...] any time in the past 12 m [facility], were you homeless or living in a intermediate (including now)? 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 Answer Date of Assessment Author Status Yes 12/08/2023 12:56 PM CDT Charlotte Mirza LPN Active * Do you have difficulty dressing or bathing? Answer Date of Assessment Author Status No 12/08/2023 12:56 PM CDT Charlotte Mirza, ASSISTANT PRINCIPAL Active * Because of a physical, mental, [...] Info) Description 04/25/2024 11:00 AM DIRECTOR OF CURRICULUM AND INSTRUCTION Appointment [facility] [address] [place] [address] Ti Bonilla MD [address] [place] [phone] 05/23/2024 3:30 PM DIRECTOR OF CURRICULUM AND INSTRUCTION Office Visit [facility] [address] [place] [address] Jyoti Escobar MD [address] [place] [address] documented as of this encounter Goals Goal Patient Goal Type Associated Problems Recent Progress Patient-Stated? Author Safety ? Patient/family will have appropriate support at home upon discharge Lifestyle No Alex Lozano, motor and chassis inspector - family caregiver with be involved in care transitions and discharge planning Lifestyle No Alex Lozano RN Patient will return to prior living situation and remain independent in ADLs upon discharge from hospital Lifestyle No Alex Lozano RN documented as of this encounter Visit Diagnoses Not on filedocumented in this encounter Care Teams Muleser Relationship Specialty Start Date End Date Ti Bonilla MD [address] [place] [address] PCP - General FAMILY PRACTICE 12/03/21 Evaristo Allan MD [place] Artificial Pearl Maker CARDIOVASCULAR DISEASE 08/19/16 Raul Santana MD CLINICAL CARDIAC ELECTROPHYSIOLOGY 06/16/17 Danny [place]well MD [address] [place], [place] [phone] ORTHOPAEDIC SURGERY 05/01/19 Gayle Arce APRN, SIMULATION SOFTWARE ENGINEER-C [address] [place] [address] [address] [place] [address] NURSE PRACTITIONER 03/03/20 Mendel Shah DPM [address] [place] [address] Consulting Physician PODIATRY/SURGERY 06/27/23 06/26/24 Jyoti Escobar MD [address] [place] [address] INTERVENTIONAL CARDIOLOGY 12/27/23 documented as of this encounter
--- OUTSIDE RECORDS SUMMARY | 2024-04-23 05:13 | XMS_ITS | Encounter Summary ---
Author Organization [facility] Address [address] [place] [address]. [place] [address] [place] [address] Care Team Providers Care Sales Consultant Residential Manager Name Role Phone Elza Allan MD Unavailable Unavailabl Raul Duran MD Unavailable Unavailabl Danny Lopes MD Unavailable [phone] Gayle Arce APRN, OIL REFINERY OPERATOR-C Unavailable Ti Bonilla MD Primary Care Provider Mendel Shah DPM Unavailable [phone] Jyoti Escobar MD Unavailable [phone] Encounter Details Date Type Department Care Team (Late st Contact Info) Description 12/26/2023 Orders Only [facility] [address] [place] [address] Abdulkadir Downing MD [address] [facility] [address] [place] [address] Social History Tobacco Use Types [...] were you homeless or living in a nursing home (including now)? No 12/08/2023 Sex and [...] Contact Info) Description 04/25/2024 11:00 AM ANALYSIS ANALYST Appointment [facility] [address] [place] [address] Ti Bonilla MD [address] [place] [phone] 05/23/2024 3:30 PM ANALYSIS ANALYST Office Visit [facility] [address] [place] [address] Jyoti Escobar MD [address] [place] [phone] documented as of this encounter Goals Goal Patient Goal Type Associated Problems Recent Progress Patient-Stated? Author Safety ? Patient/family will have appropriate support at home upon discharge Lifestyle No Alex Lozano personal financial advisor - family caregiver with be involved in care transitions and discharge planning Lifestyle No Alex Lozano RN Patient will return to prior living situation and remain independent in ADLs upon discharge from hospital Lifestyle No Alex Lozano RN documented as of this encounter Results * ELECTROCARDIOGRAM (12/26/2023 9:32 AM CDT) 12/26/2023 9:32 AM CDT Narrative [facility] - 01/04/2024 1:52 PM CDT ? [facility] ?[address] [place], [place] ??[address] ? Test Date: ?2023-12-26 Pat Name: ? ELZA MCKEON ? Department: ?? 105 ? Room: ? Gender: ? Male ? Punch Hand: ?? msf : ?1960 ? Requested By: ABDULKADIR DOWNING Order Number: [id number] ?Reading : ?? Becki Nuñez ? Measurements Intervals ?[place] ? Rate: ? 100 ?P: ? TN: ? 0 ?QRS: ?37 QRSD: ? 118 ?T: ?-11 QT: ? 352 ? QTc: ?454 ? Interpretive Statements ATRIAL FIBRILLATION WITH RAPID VENTRICULAR RESPONSE RIGHT BUNDLE BRANCH BLOCK Procedure Note Becki Nuñez MD - 01/04/2024 [facility] [place] [address] [place] [address] Test Date: 2023-12-26 Pat Name: [facility] Department: 105 Room: Gender: Male Punch Hand: anu : 1960 Requested By: ABDULKADIR DOWNING Order Number: [id number] Reading MD: Becki Nuñez Measurements Intervals [place] Rate: 100 P: TN: 0 QRS: 37 QRSD: 118 T: -11 QT: 352 QTc: 454 Interpretive Statements ATRIAL FIBRILLATION WITH RAPID VENTRICULAR RESPONSE RIGHT BUNDLE BRANCH BLOCK us Abdulkadir Downing MD PROCEDURES-ORDERABLE NO CHARG E Final Result KIKE FROST documented in this encounter Visit Diagnoses Diagnosis Chronic diastolic heart failure ([facility])- Primary Chronic diastolic heart failure Coronary artery disease involving [place] coronary artery of [place] heart, unspecified whether angina present Paroxysmal atrial fibrillation ([facility]) Atrial fibrillation Essential (primary) hypertension Unspecified essential hypertension Hyperlipidemia, mixed Mixed hyperlipidemia terminal makeup operator use of drug Encounter for long-term (current) use of other medications Coronary artery disease involving [place] coronary artery of [place] heart, unspecified whether angina present- Primary Hyperlipidemia, mixed Mixed hyperlipidemia group home use of drug Encounter for long-term (current) use of other medications documented in this encounter Care Teams Sales Consultant Residential Manager Relationship Specialty Start Date End Date Ti Bonilla MD [address] [place] [phone] PCP - General FAMILY PRACTICE 12/03/21 Elza Allan MD [place] Production Generalist CARDIOVASCULAR DISEASE 08/19/16 Raul Santana MD CLINICAL CARDIAC ELECTROPHYSIOLOGY 06/16/17 Danny [place]well MD [address] [place] [address] [phone] ORTHOPAEDIC SURGERY 05/01/19 Gayle Arce APRN, OIL REFINERY OPERATOR-C [address] [place] [address] [address] [place] [phone] NURSE PRACTITIONER 03/03/20 Mendel Shah DPM [address] [place] [address] [place] [address] Consulting Physician PODIATRY/SURGERY 06/27/23 06/26/24 Jyoti Escobar MD [address] [place] [address] INTERVENTIONAL CARDIOLOGY 12/27/23 documented as of this encounter
--- OUTSIDE RECORDS SUMMARY | 2024-04-23 05:13 | XMS_ITS | Encounter Summary ---
Author Organization [facility] Address [address] [place] [address]. [place], [place] [address] [place] [address] Care Team Providers Care Inserter Promotional Item Name Role Phone Evaristo Allan MD Unavailable Unavailabl Raul Duran MD Unavailable Unavailabl Danny Lopes MD Unavailable [phone] Gayle Arce APRN, HEAT READER-C Unavailable [phone] Ti Bonilla MD Primary Care Provider Mendel Shah DPM Unavailable [phone] Encounter Details Date Type Department Care Team (Latest Contact Info) Description 12/02/2023 1:30 PM CDT - 12/02/2023 11:59 PM CDT Hospital Encounter [facility] [address] [place], [place] [address] Joshua Yin MD [address] [place] [phone] Discharge Disposition: Home or Self Care (Routine [...] 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 04/19/2023 Continuous Glucose Electroplating Laborer (FREESTYLE LI 3 READER) Device Inject 1 [...] st Contact Info) Description 04/25/2024 11:00 AM AIRCRAFT STRUCTURAL REPAIR MECHANIC Appointment [facility] [address] [address] Ti Bonilla MD [address] [place] [phone] 05/23/2024 3:30 PM AIRCRAFT STRUCTURAL REPAIR MECHANIC Office Visit [facility] [address] [place] [phone] Jyoti Escobar MD [address] [place] [address]761 documented as of this encounter Procedures Procedure [...] - 10.80 x10'3/uL 12/02/2023 1:52 PM CDT [facility] RBC 4.66 4.50 - 6.10 x10'6/uL 12/02/2023 1:52 PM CDT [facility] HGB 12.6(L) 13.0 - 18.0 G/DL 12/02/2023 1:52 PM CDT [facility] HCT 40.6 37.0 - 52.0 % 12/02/2023 1:52 PM CDT [facility] MCV 87.1 78.0 - 100.0 FL 12/02/2023 1:52 PM CDT [facility] MCH 27.0 27.0 - 31.0 PG 12/02/2023 1:52 PM CDT [facility] MCHC 31.0(L) 33.0 - 36.0 G/DL 12/02/2023 1:52 PM CDT [facility] RDW 15.9(H) 11.5 - 14.5 % 12/02/2023 1:52 PM CDT [facility] PLT 276 150 - 350 x10'3/uL 12/02/2023 1:52 PM CDT [facility] MPV 10.7(H) 7.4 - 10.4 FL 12/02/2023 1:52 PM CDT [facility] ABS. NEUTROPHILS 5.37 1.60 - 8.30 x10'3/uL 12/02/2023 1:52 PM CDT [facility] ABS. LYMPHOCYTES 2.02 0.80 - 4.70 x10'3/uL 12/02/2023 1:52 PM CDT [facility] ABS. MONOCYTES 1.19 0.00 - 1.50 x10'3/uL 12/02/2023 1:52 PM CDT [facility] ABS. EOSINOPHILS 0.18 0.00 - 0.40 x10'3/uL 12/02/2023 1:52 PM CDT [facility] ABS. BASOPHILS 0.11 0.00 - 0.20 x10'3/uL 12/02/2023 1:52 PM CDT [facility] ABS. IMMATURE GRANULOCYTES 0.03 0.00 - 0.03 x10'3/uL 12/02/2023 1:52 PM CDT [facility] ABS. NUCLEATED RBC'S 0.00 0.00 - 0.01 x10'3/uL 12/02/2023 1:52 PM CDT [facility] 12/02/2023 1:39 PM CDT Joshua Yin MD LABORATORY Final Result [facility] [address] [place] [address], [id number] * (ABNORMAL) COMPREHENSIVE METABOLIC PANEL (12/02/2023 1:39 PM CDT) SODIUM S/P/B 138 136 - 145 MMOL/L 12/02/2023 2:09 PM CDT [facility] POTASSIUM S/P/B 4.7 3.5 - 5.1 MMOL/L 12/02/2023 2:09 PM CDT [facility] CHLORIDE S/P/B 102 97 - 115 MMOL/L 12/02/2023 2:09 PM CDT [facility] CO2 31.5 21.0 - 32.0 MMOL/L 12/02/2023 2:09 PM CDT [facility] GLUCOSE 70(L) 74 - 106 MG/DL 12/02/2023 2:09 PM CDT [facility] BUN 22(H) 7 - 18 MG/DL 12/02/2023 2:09 PM CDT [facility] CREATININE S/P/B 1.21 0.70 - 1.30 MG/DL 12/02/2023 2:09 PM CDT [facility] CALCIUM S/P/B 9.9 8.5 - 10.1 MG/DL 12/02/2023 2:09 PM CDT [facility] BILIRUBIN TOTAL S/P/B 0.3 0.2 - 1.0 MG/DL 12/02/2023 2:09 PM CDT [facility] ALKALINE PHOSPHATASE S/P/B 84 45 - 115 U/L 12/02/2023 2:09 PM CDT [facility] AST 28 15 - 37 U/L 12/02/2023 2:09 PM CDT [facility] ALT 41 16 - 61 U/L 12/02/2023 2:09 PM CDT [facility] TOTAL PROTEIN S/P/B 7.6 6.4 - 8.2 G/DL 12/02/2023 2:09 PM CDT [facility] ALBUMIN S/P/B 3.5 3.4 - 5.0 G/DL 12/02/2023 2:09 PM CDT [facility] ANION GAP 4.5 2.0 - 10.0 MMOL/L 12/02/2023 2:09 PM CDT [facility] OSMOLALITY (CALC) 288 MOSM/KG 024 2:09 PM CDT [facility] Comment:REFERENCE RANGE NOT ESTABLISHED GFR ESTIMATE 67(L) >90 ML/MIN/1. 73 M2 12/02/2023 2:09 PM CDT [facility] GFR NOTES GFR REFERENCE S: 12/02/2023 2:09 PM T [facility] Comment: THE ESTIMATED GFR IS [...] us Joshua Yin MD LABORATORY Final Result [facility] [address] [place] [address], [place] [phone] [id number] * Type & Screen ([facility] Epic Use Only) (12/02/2023 1:39 PM CDT) ABO/RH B POSITIVE 12/02/2023 2:27 PM CDT [facility] ANTIBODY SCREEN NEGATIVE 12/02/2023 2:27 PM CDT [facility] SAMPLE EXPIRATION 12/08/2023,2 359 12/02/2023 1:46 PM CDT [facility] 12/02/2023 1:39 PM CDT Joshua Yin MD BLOOD BANK TEST ORDERABLES Final Result Performing Organization Address [facility] Co de Phone Number [facility] [address] [place] [address], [id number] documented in this encounter Visit Diagnoses Diagnosis Atypical atrial flutter (CMS/HCC HHS/HCC) Atrial flutter documented in this encounter Care Teams Inserter Promotional Item Relationship Specialty Start Date End Date Ti Bonilla MD [address] [place] [phone] PCP - General FAMILY PRACTICE 12/03/21 Evaristo Allan MD [place] [employer] Laboratory Chief CARDIOVASCULAR DISEASE 08/19/16 Raul Santana MD CLINICAL CARDIAC ELECTROPHYSIOLOGY 06/16/17 Danny Blackwell MD [address] [place] [address] ORTHOPAEDIC SURGERY 05/01/19 Gayle Arce, TAPE DUPLICATOR, HEAT READER-C [address] [facility] [address] [place] [phone] NURSE PRACTITIONER 03/03/20 Mendel Shah DPM [address] [place] [address] Consulting Physician PODIATRY/SURGERY 06/27/23 06/26/24 documented as of this encounter
--- OUTSIDE RECORDS SUMMARY | 2024-04-23 05:13 | XMS_ITS | Encounter Summary ---
Author Organization [facility] Address [address] [place] [address]. 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 [...] Assessment Author Status No 11/17/2021 3:30 PM IMKKIT Angela Mancuso RN Active * Do you [...] Contact Info) Description 04/25/2024 11:00 AM RN CLINICIAN Appointment [facility] [address] [place] [address] [place] [address] Ti Bonilla MD [address] [place] [phone] 05/23/2024 3:30 PM RN CLINICIAN Office Visit [facility] [address] [place] [phone] Jyoti Escobar MD [address] [place] [address] documented as of this encounter Visit Diagnoses Not on filedocumented in this encounter Care Teams Medical Record Coder Relationship Specialty Start Date End Date Ti Bonilla MD [address] [place] [phone] PCP - General FAMILY PRACTICE 12/03/21 Evaristo Allan MD [place] Event Host CARDIOVASCULAR DISEASE 08/19/16 Raul Santana MD CLINICAL CARDIAC ELECTROPHYSIOLOGY 06/16/17 Danny Blackwell MD [address] [place] [address] ORTHOPAEDIC SURGERY 05/01/19 Gayle Arce, FAMILY SUPPORT COORDINATOR, COMMISSIONED SALES ASSOCIATE-C [address] [facility] [address] [place] [address] NURSE PRACTITIONER 03/03/20 Mendel Shah DPM [address] [place] [address] Consulting Physician PODIATRY/SURGERY 06/27/23 06/26/24 documented as of this encounter
--- OUTSIDE RECORDS SUMMARY | 2024-04-23 05:13 | XMS_ITS | Encounter Summary ---
Author Organization [facility] Address [address] [place] [address]. [place], [place] [phone] [place] [address] Care Team Providers Care Inking Machine Tender Name Role Phone Evaristo Allan MD Unavailable Unavailabl Raul Duran MD Unavailable Unavailabl Danny Lopes MD Unavailable [phone] Gayle Arce APRN, MANAGER STRATEGIC ALLIANCES-C Unavailable Ti Bonilla MD Primary Care Provider Mendel Shah DPM Unavailable [phone] Encounter Details Date Type Department Care Team [...] st Contact Info) Description 04/25/2024 11:00 AM KARATE INSTRUCTOR Appointment [facility] [address] [place] [address] [place] [address] Ti Bonilla MD [address] [place] [phone] 05/23/2024 3:30 PM KARATE INSTRUCTOR Office Visit [facility] [address] [facility] [place] [phone] Jyoti Escobar MD [address] [place] [address] documented as of this encounter Visit Diagnoses Not on filedocumented in this encounter Care Teams Inking Machine Tender Relationship Specialty Start Date End Date Ti Bonilla MD [address] [place] [phone] PCP - General FAMILY PRACTICE 12/03/21 Evaristo Allan MD [place] Paper Folding Machine Operator CARDIOVASCULAR DISEASE 08/19/16 Raul Santana MD CLINICAL CARDIAC ELECTROPHYSIOLOGY 06/16/17 Danny Blackwell MD [address] [place] [address] ORTHOPAEDIC SURGERY 05/01/19 Gayle Arce, BAGGAGE SCREENER, MANAGER STRATEGIC ALLIANCES-C [address] [facility] [address] [place] [address] NURSE PRACTITIONER 03/03/20 Mendel Shah DPM [address] [place] [address] Consulting Physician PODIATRY/SURGERY 06/27/23 06/26/24 documented as of this encounter
--- OUTSIDE RECORDS SUMMARY | 2024-04-23 05:13 | XMS_ITS | Encounter Summary ---
Author Organization [facility] Address [address] [place] [address]. [place], [place] [address] [place] [address] Care Team Providers Care Electric Cutter Operator Name Role Phone Evaristo Allan MD Unavailable Unavailabl Raul Duran MD Unavailable Unavailabl e Danny Blackwell MD Unavailable [phone] Gayle Arce APRN, GROCERY STORE BAGGER-C Unavailable Ti Bonilla MD Primary Care Provider Mendel Shah DPM Unavailable [phone] Reason for Referral * Imaging (Routine) - Closed Specialty Diagnoses / Procedures Referred By Charito ledbetter Referred To Contact RADIOLOGY Diagnoses Atypical atrial flutter ([facility]/HCC [facility]/HCC) Procedures XA AFLUTTER ABLATION Joshua Yin MD [address] [place] [address] Phone: tel: fax: Referral ID Status Reason Start Date Expiration Date Visits Re quested Visits Authorized [id number] Closed 10/31/2023 11/30/2024 1 1 Reason for Visit * Reason Onset Date Comments Schedule Procedure 10/31/2023 Encounter Details Date Type Department Care Team ([facility] st Contact Info) Description 10/31/2023 Telephone [facility] [address] [place] [address] Joshua Yin MD [address] [place] [address] Schedule Procedure Social History Tobacco Use Types [...] st Contact Info) Description 04/25/2024 11:00 AM WINDER CONTORT OPERATOR Appointment [facility] [address] [place] [address] [place] [address] Ti Bonilla MD [address] [place] [phone] 05/23/2024 3:30 PM WINDER CONTORT OPERATOR Office Visit [facility] [address] [place] [address] [place] [address] Jyoti Escobar MD [address] [place] [phone] Pending Results Name Type Priority Associated Diagnoses Date /Time XA AFLUTTER ABLATION Cardiac Cath Routine Atypical atrial flutter (CMS/HCC HHS/HCC) 12/05/2023 10:31 AM CDT Scheduled Orders Name Type Priority Associated Diagnoses Orde r Schedule XA AFLUTTER ABLATION Cardiac Cath Routine Atypical atrial flutter (CMS/HCC [facility]) Expected: 12/05/2023, Expires: 10/30/2024 documented as of this encounter Results * Type & Screen ([facility] Epic Use Only) (12/02/2023 1:39 PM CDT) ABO/RH B POSITIVE 12/02/2023 2:27 PM CDT [facility] ANTIBODY SCREEN NEGATIVE 12/02/2023 2:27 PM CDT [facility] SAMPLE EXPIRATION 12/08/2023,2 359 12/02/2023 1:46 PM CDT [facility] 12/02/2023 1:39 PM CDT Joshua Yin MD BLOOD BANK TEST ORDERABLES Final Result [facility] [address] [place] [address], [id number] * (ABNORMAL) COMPREHENSIVE METABOLIC PANEL (12/02/2023 1:39 PM CDT) SODIUM S/P/B 138 136 - 145 MMOL/L 12/02/2023 2:09 PM CDT [facility] POTASSIUM S/P/B 4.7 3.5 - 5.1 MMOL/L 12/02/2023 2:09 PM CDT [facility] CHLORIDE S/P/B 102 97 - 115 MMOL/L 12/02/2023 2:09 PM CDT [facility] CO2 31.5 21.0 - 32.0 MMOL/L 12/02/2023 2:09 PM CDT [facility] GLUCOSE 70(L) 74 - 106 MG/DL 12/02/2023 2:09 PM CDT [facility] BUN 22(H) 7 - 18 MG/DL 12/02/2023 2:09 PM CDT [facility] CREATININE S/P/B 1.21 0.70 - 1.30 MG/DL 12/02/2023 2:09 PM CDT [facility] CALCIUM S/P/B 9.9 8.5 - 10.1 MG/DL 12/02/2023 2:09 PM CDT [facility] BILIRUBIN TOTAL S/P/B 0.3 0.2 - 1.0 MG/DL 12/02/2023 2:09 PM CDT [facility] ALKALINE PHOSPHATASE S/P/B 84 45 - 115 U/L 12/02/2023 2:09 PM CDT [facility] AST 28 15 - 37 U/L 12/02/2023 2:09 PM CDT [facility] ALT 41 16 - 61 U/L 12/02/2023 2:09 PM CDT [facility] TOTAL PROTEIN S/P/B 7.6 6.4 - 8.2 G/DL 12/02/2023 2:09 PM CDT [facility] ALBUMIN S/P/B 3.5 3.4 - 5.0 G/DL 12/02/2023 2:09 PM CDT [facility] ANION GAP 4.5 2.0 - 10.0 MMOL/L 12/02/2023 2:09 PM CDT [facility] OSMOLALITY (CALC) 288 MOSM/KG 024 2:09 PM CDT [facility] Comment:REFERENCE RANGE NOT ESTABLISHED GFR ESTIMATE 67(L) >90 ML/MIN/1. 73 M2 12/02/2023 2:09 PM CDT [facility] GFR NOTES GFR REFERENCE S: 12/02/2023 2:09 PM CDT [facility] Comment: THE ESTIMATED GFR IS [...] us Joshua Yin MD LABORATORY Final Result [facility] [address] [place] [address], [id number] * (ABNORMAL) CBC W/DIFF AUTOMATED (12/02/2023 1:39 PM CDT) [facility] WBC 8.90 4.00 - 10.80 x10'3/uL 12/02/2023 1:52 PM CDT [facility] RBC 4.66 4.50 - 6.10 x10'6/uL 12/02/2023 1:52 PM CDT [facility] HGB 12.6(L) 13.0 - 18.0 G/DL 12/02/2023 1:52 PM CDT [facility] HCT 40.6 37.0 - 52.0 % 12/02/2023 1:52 PM CDT [facility] MCV 87.1 78.0 - 100.0 FL 12/02/2023 1:52 PM CDT [facility] MCH 27.0 27.0 - 31.0 PG 12/02/2023 1:52 PM CDT [facility] MCHC 31.0(L) 33.0 - 36.0 G/DL 12/02/2023 1:52 PM CDT [facility] RDW 15.9(H) 11.5 - 14.5 % 12/02/2023 1:52 PM CDT [facility] PLT 276 150 - 350 x10'3/uL 12/02/2023 1:52 PM CDT [facility] MPV 10.7(H) 7.4 - 10.4 FL 12/02/2023 1:52 PM CDT [facility] ABS. NEUTROPHILS 5.37 1.60 - 8.30 x10'3/uL 12/02/2023 1:52 PM CDT [facility] ABS. LYMPHOCYTES 2.02 0.80 - 4.70 x10'3/uL 12/02/2023 1:52 PM CDT [facility] ABS. MONOCYTES 1.19 0.00 - 1.50 x10'3/uL 12/02/2023 1:52 PM CDT [facility] ABS. EOSINOPHILS 0.18 0.00 - 0.40 x10'3/uL 12/02/2023 1:52 PM CDT [facility] ABS. BASOPHILS 0.11 0.00 - 0.20 x10'3/uL 12/02/2023 1:52 PM CDT [facility] ABS. IMMATURE GRANULOCYTES 0.03 0.00 - 0.03 x10'3/uL 12/02/2023 1:52 PM CDT [facility] ABS. NUCLEATED RBC'S 0.00 0.00 - 0.01 x10'3/uL 12/02/2023 1:52 PM CDT [facility] 12/02/2023 1:39 PM CDT Joshua Yin MD LABORATORY Final Result [facility] [address] [place] [address], [phone] documented in this encounter Visit Diagnoses Diagnosis Atypical atrial flutter (CMS/HCC HHS/HCC)- Primary Atrial flutter documented in this encounter Care Teams Electric Cutter Operator Relationship Specialty Start Date End Date Ti Bonilla MD [address] [place] [phone] PCP - General FAMILY PRACTICE 12/03/21 Evaristo Allan MD [place] Instructor Nurse CARDIOVASCULAR DISEASE 08/19/16 Raul Santana MD CLINICAL CARDIAC ELECTROPHYSIOLOGY 06/16/17 Danny Blackwell MD [address] [place] [address] ORTHOPAEDIC SURGERY 05/01/19 Gayle Arce APRN, GROCERY STORE BAGGER-C [address] [facility] [address] [place] [address] NURSE PRACTITIONER 03/03/20 Mendel Shah DPM [address] [place] [address] Consulting Physician PODIATRY/SURGERY 06/27/23 06/26/24 documented as of this encounter
--- OUTSIDE RECORDS SUMMARY | 2024-04-23 05:13 | XMS_ITS | Encounter Summary ---
Author Organization [facility] Address [address] [place] [address]. [place], [place] [address] [place] [address] Care Team Providers Care Filament Tester Name Role Phone Evaristo Allan MD Unavailable Unavailabl Raul Duran MD Unavailable Unavailabl Danny Lopes MD Unavailable [phone] Gayle Arce APRN, BUTCHER SUPERVISOR-C Unavailable [phone] Ti Bonilla MD Primary Care Provider Mendel Shah DPM Unavailable [phone] Jyoti Escobar MD Unavailable [phone] Reason for Visit * Reason Onset Date Comments Appointment Request 12/28/2023 Encounter Details Date Type Department Care Team (Late st Contact Info) Description 12/28/2023 Telephone [facility] [address] [place] [address] Jyoti Escobar MD [address] [place] [address] Appointment Request Social History Tobacco [...] any time in the past 12 m [facility], were you homeless or living in a fdc (including now)? No 12/08/2023 Sex and Gender [...] at 3:[address] Escobar in [place] per Gayle Arce. documented in this encounter Plan of Treatment Upcoming Encounters Date Type Department Care Team (Late st Contact Info) Description 04/25/2024 11:00 AM BOTTOM MAN Appointment [facility] [address] [place] [address] [place] [address] Ti Bonilla MD [address] [place] [phone] 05/23/2024 3:30 PM BOTTOM MAN Office Visit [facility] [address] [place] [phone] Jyoti Escobar MD [address] [place], [place] [address] documented as of this encounter Goals Goal Patient Goal Type Associated Problems Recent Progress Patient-Stated? Author Safety ? Patient/family will have appropriate support at home upon discharge Lifestyle No Alex Lozano, community outreach advocate - family caregiver with be involved in care transitions and discharge planning Lifestyle No Alex Lozano, RN Patient will return to prior living situation and remain independent in ADLs upon discharge from hospital Lifestyle No Alex Lozano RN documented as of this encounter Visit Diagnoses Not on filedocumented in this encounter Care Teams Filament Tester Relationship Specialty Start Date End Date Ti Bonilla MD [address] [place] [phone] PCP - General FAMILY PRACTICE 12/03/21 Evaristo Allan MD [place] Studio Director CARDIOVASCULAR DISEASE 08/19/16 Raul Santana MD CLINICAL CARDIAC ELECTROPHYSIOLOGY 06/16/17 Danny Blackwell MD [address] [place] [address] ORTHOPAEDIC SURGERY 05/01/19 Gayle Arce APRN, BUTCHER SUPERVISOR-C [address] [facility] [address] [place] [address] NURSE PRACTITIONER 03/03/20 Mendel Shah DPM [facility] [place] [address] Consulting Physician PODIATRY/SURGERY 06/27/23 06/26/24 Jyoti Escobar MD [address] [place] [address] INTERVENTIONAL CARDIOLOGY 12/27/23 documented as of this encounter
--- OUTSIDE RECORDS SUMMARY | 2024-04-23 05:13 | XMS_ITS | Encounter Summary ---
Author Organization [facility] Address [address] [place] [address]. [place], [place] [address] [place], [place] [address] Care Team Providers Care Technical Account Representative Name Role Phone Evaristo Allan MD Unavailable Unavailabl Raul Duran MD Unavailable Unavailabl Danny Lopes MD Unavailable [phone] Gayle Arce APRN, MEDICAL WRITER-C Unavailable [phone] Ti Bonilla MD Primary Care Provider [phone] Mendel Shah DPM Unavailable [phone] Encounter Details Date Type Department Care Team (Latest Contact Info) Description 12/26/2023 Travel Social History Tobacco Use Types Packs/Day Years Used Date Smoking Tobacco: Never Smokeless Tobacco: Never Alcohol Use Standard Drinks/Week Comments Yes 0 (1 standard drink = 0.6 oz pur e alcohol) social [facility] Utilities Answer Date Recorded In the past 12 months has [facility] Funding Options, gas, oil, or water STARFACE threatened to shut off services in your [...] any time in the past 12 m [facility], were you homeless or living in a custodial (including now)? 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 Author Safety ? Patient/family will have appropriate support at home upon discharge Lifestyle No Alex Lozano welding systems and equipment repairer - family caregiver with be involved in care transitions and discharge planning Lifestyle No Alex Lozano, RN Patient will return to prior living situation and remain independent in ADLs upon discharge from hospital Lifestyle No Alex Lozano RN documented as of this encounter Visit Diagnoses Not on filedocumented in this encounter Care Teams Technical Account Representative Relationship Specialty Start Date End Date Ti Bonilla MD [address] [place] [address] PCP - General FAMILY PRACTICE 12/03/21 Evaristo Allan MD [place] Chief [employer] Finance Officer CARDIOVASCULAR DISEASE 08/19/16 Raul Santana MD CLINICAL CARDIAC ELECTROPHYSIOLOGY 06/16/17 Danny Blackwell MD [address] [place] [address] ORTHOPAEDIC SURGERY 05/01/19 Gayle Arce APRN, MEDICAL WRITER-C 619 [facility] [address] [place] [phone] NURSE PRACTITIONER 03/03/20 Mendel Shah DPM [address] [place] [address] Consulting Physician PODIATRY/SURGERY 06/27/23 06/26/24 documented as of this encounter
--- OUTSIDE RECORDS SUMMARY | 2024-04-23 05:13 | XMS_ITS | Encounter Summary ---
Author Organization [facility] Address [address] [place] [address]. [place] [address] [place] [address] Care Team Providers Care Methods Time Analyst Name Role Phone Evaristo Allan MD Unavailable Unavailabl Raul Duran MD Unavailable Unavailabl Danny Lopes MD Unavailable [phone] Gayle Arce APRN CORE ANALYSIS OPERATOR-C Unavailable Ti Bonilla MD Primary Care Provider Mendel Shah DPSallie Unavailable [phone] Reason for Visit * Reason Onset Date Comments Appointment Reminder 12/01/2023 Encounter Details Date Type Department Care Team ([facility] Contact Info) Description 12/01/2023 Telephone [facility] [address] [place] [address] Shannan Lay, CORE ANALYSIS OPERATOR [address] [facility] [place]. 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 No answer / No voicemail documented in this encounter Plan of Treatment Upcoming Encounters Date Type Department Care Team (Late st Contact Info) Description 04/25/2024 11:00 AM MARKETING OPERATIONS ANALYST Appointment [facility] [address] [facility] [place] [address] Ti Bonilla MD [address] [place] [phone] 05/23/2024 3:30 PM MARKETING OPERATIONS ANALYST Office Visit [facility] [address] [place] [phone] Jyoti Escobar MD [address] [place] [address] documented as of this encounter Visit Diagnoses Not on filedocumented in this encounter Care Teams Methods Time Analyst Relationship Specialty Start Date End Date Ti Bonilla MD [address] [place] [phone] PCP - General FAMILY PRACTICE 12/03/21 Evaristo Allan MD [place] Fundraiser CARDIOVASCULAR DISEASE 08/19/16 Raul Santana MD CLINICAL CARDIAC ELECTROPHYSIOLOGY 06/16/17 Danny Blackwell MD [address] [place] [address] ORTHOPAEDIC SURGERY 05/01/19 Gayle Arce, TILE SPRAYER, CORE ANALYSIS OPERATOR-C [address] [place] [address] [address] [place] [address] NURSE PRACTITIONER 03/03/20 Mendel Shah DPM [facility] [place] [address] Consulting Physician PODIATRY/SURGERY 06/27/23 06/26/24 documented as of this encounter
--- OUTSIDE RECORDS SUMMARY | 2024-04-23 05:13 | XMS_ITS | Encounter Summary ---
Author Organization [facility] Address [address] [place] [address]. [place], [place] [address] [place] [address] Care Team Providers Care Piercer Operator Name Role Phone Elza Allan MD Unavailable Unavailabl Raul Duran MD Unavailable Unavailabl Danny Lopes MD Unavailable [phone] Gayle Arce APRN, STACK ATTENDANT-C Unavailable Ti Bonilla MD Primary Care Provider [phone] Mendel Shah DPM Unavailable [phone] Jyoti Escobar MD Unavailable [phone] Reason for Referral * Procedure (Routine) - New Request Specialty Diagnoses / Procedures Referred By Contac t Referred To Contact Diagnoses Exertional shortness of breath Procedures Complete PFT (pre/post [place], Lung Vol, Diff Capacity) (25789, 33187, 98054, 85570) Des Shukla MD [address] [place] [address] Phone: tel: fax: Referral ID Status Reason Start Date Expiration Date V isits Requested Visits Authorized [id number] New Request 03/22/2024 04/22/2025 1 1 H STOCK SORTER Encounter Details Date Type Department Care Team (Late st Contact Info) Description 03/22/2024 Transcribe Orders [facility] Pre Access Team [address] [place] [address] Des Shukla MD [address] [place] [address] Social History Tobacco Use Types Packs/Day Years Used Date Smoking Tobacco: Never Smokeless Tobacco: Never Alcohol Use Standard Drinks/Week Comments Yes 0 (1 standard drink = 0.6 oz pur e alcohol) social [facility] Utilities Answer Date Recorded In the past 12 months has th e [employer] gas, oil, or water Naytev threatened to shut off services in your [...] any time in the past [address] [facility], were you homeless or living in a penitentiary (including now)? 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 [address] [place] [address] [place] [address] Ti Bonilla MD [address] [place] [phone] 05/23/2024 3:30 PM CLOTH STOCK SORTER Office Visit [facility] [address] [facility] [place] [phone] Jyoti Escobar MD [address] [place] [phone] documented as of this encounter Goals Goal Patient Goal Type Associated Problems Recent Progress Patient-Stated? Author Safety ? Patient/family will have appropriate support at home upon discharge Lifestyle No Alex Lozano, country director - family caregiver with be involved in care transitions and discharge planning Lifestyle No Alex Lozano, RN Patient will return to prior living situation and remain independent in ADLs upon discharge from hospital Lifestyle No Alex Lozano RN documented as of this encounter Results * Complete PFT (pre/post [place], Lung Vol, Diff Capacity) (39963, 60727, 37801, 29055) (04/05/2024 12:36 PM CLOTH STOCK SORTER) 04/05/2024 12:3 6 PM CLOTH STOCK SORTER Narrative ESCRIPTION - 04/06/2024 6:15 PM CLOTH STOCK SORTER Patient Name: ELZA MCKEON Date of : 1960 Account: [id number] Facility: [facility] Location: [facility] Date of Service: 04/05/2024 Pulmonary Function Test [...] Sallie SHUKLA MD D: ??04/05/2024 09:52 PM ??#[id number] T: ??04/05/2024 10:00 PM ??/[facility] Wilner Shukla MD PFT ORDERABLES Final Result ESCRIPTION documented in this encounter Visit Diagnoses Diagnosis Exertional shortness of breath- Primary Shortness of breath Exertional shortness of breath Shortness of breath documented in this encounter Care Teams Piercer Operator Relationship Specialty Start Date End Date Ti Bonilla MD [address] [place] [phone] PCP - General FAMILY PRACTICE 12/03/21 Elza Allan MD [place] Journeyman Level Acoustic Analyst CARDIOVASCULAR DISEASE 08/19/16 Raul Santana MD CLINICAL CARDIAC ELECTROPHYSIOLOGY 06/16/17 Danny Blackwell MD [address] [place] [address] ORTHOPAEDIC SURGERY 05/01/19 Gayle Arce, AGRICULTURAL SERVICE WORKER, STACK ATTENDANT-C [address] [place] [address] [place] [address] NURSE PRACTITIONER 03/03/20 Mendel Shah DPM [address] [place] [address] Consulting Physician PODIATRY/SURGERY 06/27/23 06/26/24 Jyoti Escobar MD [address] [place] [address] INTERVENTIONAL CARDIOLOGY 12/27/23 documented as of this encounter
--- OUTSIDE RECORDS SUMMARY | 2024-04-23 05:13 | XMS_ITS | Encounter Summary ---
Author Organization [facility] Address [address] [place] [address]. [place], [place] [address] [place] [address] Care Team Providers Care Thoracic Medicine Physician Name Role Phone Elza Allan MD Unavailable Unavailabl e Raul Santana MD Unavailable Unavailabl e Danny Blackwell MD Unavailable [phone] Gayle Arce APRN, DIRECTOR OF GUIDANCE-C Unavailable Ti Zamora MD Primary Care Provider Mendel Shah DPM Unavailable [phone] Reason for Referral * Imaging (Routine) - Closed Specialty Diagnoses / Procedures Referred By Contac t Referred To Contact RADIOLOGY Diagnoses Atypical atrial flutter (CMS/HCC HHS/HCC) Procedures XA AFLUTTER ABLATION Joshua Yin MD [address] [place] [address] Phone: tel: fax: Referral ID Status Reason Start Date Expiration Date Visits Re quested Visits Authorized [id number] Closed 10/31/2023 11/30/2024 1 1 Reason for Visit * Imaging (Routine) - Closed Specialty Diagnoses / Procedures Referred By Contac t Referred To Contact RADIOLOGY Diagnoses Atypical atrial flutter (CMS/HCC HHS/HCC) Procedures XA AFLUTTER ABLATION Joshua Yin MD [address] [place] [address] Phone: tel: fax: Referral ID Status Reason Start Date Expiration Date Visits Re quested Visits Authorized [id number] Closed 10/31/2023 11/30/2024 1 1 Encounter Details Date Type Department Care Team (Latest Contact Info) Description 12/05/2023 6:19 AM CDT - 12/05/2023 4:14 PM CDT Hospital Encounter [facility] Lab Pre/Post [address] [place] [address] Joshua Yin MD [address] [place] [phone] Discharge Disposition: Home or Self Care (Routine [...] 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 FreeStyle Hazel 3 [place] Maria Inject 1 Device into the skin as needed (DM). FreeStyle Hazel 3 Sensor Misc Inject 1 Device into the skin as needed. furosemide 40 MG tablet Commonly known as: LASIX take one tablet by mouth twice a day Signed by: Gayle Arce gabapentin 400 MG capsule Commonly known as: [...] 3 (three) times a day. TRUEplus Pen [place] 31G X 8 MM [facility] Generic drug: Insulin Pen Needle Signed JOSHUA [...] stairs, ride a car, and do light distance learning coordinator. - You should be able to resume [...] If you have any questions, please call [phone]. documented in this encounter Medications at Time of Discharge amitriptyline 100 MG tablet Take 1 tablet (100 mg total) by mouth nightly at bedtime. 09/10/2020 aspirin 81 MG chewable tablet Chew 1 tablet (81 mg total) by mouth daily. 04/19/2023 Continuous Glucose Polymerization Kettle Operator (FREESTYLE HAZEL 3 READER) Device Inject 1 [...] TRUEPLUS PEN NEEDLES 31G X 8 MM [facility] 01/19/2021 atorvastatin 40 MG tablet Take 0.5 [...] AND PHYSICAL INTERVAL NOTE: I have reviewed [facility] History & Physical which was performed within [...] during recuperation were discussed with the patient/family/personal entry level marketing representative. Reasonable alternatives to the patient's proposed procedure/surgery including benefits, risks, and side effects related to the alternatives and the risks related to not receiving the proposed care were also discussed with the patient/family/personal entry level marketing representative. Questions were answered and the patient/family/personal entry level marketing representative verbalized understanding and desires to proceed. [...] control. Medications Current Outpatient Medications: Continuous Glucose Polymerization Kettle Operator (FREESTYLE HAZEL 3 READER) Device, , Disp: , Rfl: Continuous Glucose Sensor (FREESTYLE HAZEL 3 SENSOR) Misc, , Disp: , Rfl: Continuous Glucose Transmitter (DEXCOM G6 TRANSMITTER) [facility], , Disp: , Rfl: LEVEMIR FLEXPEN 100 [...] TRUEPLUS PEN NEEDLES 31G X 8 MM [facility], , Disp: , Rfl: Allergies Review of patient's allergies indicates: Allergen Reactions Tetracyclines & Related Other (see comment) Blisters in the mouth Doxycycline Other (see comment) and Rash Blisters in the mouth Past History Past Medical History: Diagnosis Date Abnormal stress test Arthritis 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 Coronary artery disease Diabetes ([facility]/HCC HHS/HCC) 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, limited to breakdown of skin (CMS/HCC HHS/HCC) Fatigue GERD (gastroesophageal reflux disease) Headache Hyperlipidemia Hypertension has had elevated B/P readings Kidney stone SARAI on CPAP Paroxysmal atrial fibrillation ([facility]/HCC HHS/HCC) PONV (postoperative nausea and vomiting) Past Surgical History: Procedure Laterality Date CARDIAC CATHETERIZATION 01/04/2018 occluded prox RCA w/well developed nhsf-gr-rydlg collaterals lvef 55-60% CARDIAC CATHETERIZATION 11/13/2018 FRACTURE SURGERY HC TOTAL KNEE REVISION Right 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 Atrial flutter. Procedures performed: Comprehensive electrophysiologic evaluation including transseptal catheterizations, insertion and repositioning of multiple electrode catheters with induction or attempted induction of an arrhythmia including left or right atrial pacing/recording when necessary, right ventricular pacing/recording when necessary, and His bundle recording when necessary with intracardiac catheter ablation of atrialfibrillation by pulmonary vein isolation [43350] Additional linear intracardiac catheter ablation of the left atrium for treatment of atrial fibrillation remaining after completion of pulmonary vein isolation [+ 53303] Intracardiac catheter ablation of a discrete mechanism of arrhythmia (left atrial tachycardia) which is distinct from the primary ablated mechanism, including repeat diagnostic maneuvers, to treat a spontaneous or induced arrhythmia [+ 71247] Intracardiac echocardiography during therapeutic/diagnostic intervention, including imaging supervision and interpretation [+ 07174-51] Moderate (conscious) sedation. Post-Procedure Diagnosis: S/P catheter [...] was performed using the Manfred catheter and DepotPointia 3-D mapping system. 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 of anticoagulant therapy Obstructive sleep apnea Hyperlipidemia Diabetes (CMS/HCC HHS/HCC) Coronary artery disease Chronic total occlusion of [place] coronary artery Cardiovascular stress test abnormal Arthritis of knee Derangement of medial meniscus, left Heartburn Knee pain Mechanical complication of internal orthopedic device, implant or graft, initial encounter ([facility]) Patella-femoral syndrome Pes anserine bursitis Recurrent ventral incisional hernia Abdominal pain Failure of total knee replacement, initial encounter ([facility]) S/P coronary artery stent placement Prosthetic knee implant failure ([facility]) Status post revision of total replacement of right knee Neck pain Microhematuria S/P ablation of atrial fibrillation Atrial flutter ([facility] HHS/[facility]) 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, limited to breakdown of skin ([facility] HHS/[facility]) 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, limited to breakdown of skin ([facility] HHS/[facility]) Past Surgical History: Procedure Laterality Date CARDIAC CATHETERIZATION 01/04/2018 occluded prox RCA w/well developed urns-fp-vkgvw collaterals lvef 55-60% CARDIAC CATHETERIZATION 11/13/2018 FRACTURE SURGERY HC TOTAL KNEE REVISION Right 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 [address] [place] [address] Ti Zamora MD [address] [place] [phone] 05/23/2024 3:30 PM BRANCH OFFICE ADMINISTRATOR Office Visit [facility] [address] [place] [address] Jyoti Escobar MD [address] [place] [address] Pending Results Name Type Priority Associated Diagnoses [...] CDT) 12/05/2023 11:5 5 AM CDT Narrative [facility] - 12/05/2023 5:17 PM CDT ? [facility] ?[address] [place], [place] ??[address] ? Test Date: ?2023-12-05 Pat Name: ? ELZA MCKEON ? Department: ?? 1 ? Room: ? [id number] Gender: ? Male ? Track Template Maker: ?? Bh : ?1960 ? Requested By: ZIRONA RODNEY Order Number: [id number] ? Reading MD: ?? Leonid Kahn ? Measurements Intervals ?[place] ? Rate: ? 96 ? P: ?75 WI: ? 237 ?QRS: ?58 QRSD: ? 109 [...] Procedure Note Leonid Khan MD - 12/05/2023 [place] [address] [place] [address] Test Date: 2023-12-05 Pat Name: [facility] Department: Room: [address] Gender: Male Track Template Maker: : 1960 Requested By: JOSHUA YIN Order Number: [id number] Reading MD: Leonid Khan Measurements Intervals [place] Rate: 96 P: 75 WI: 237 QRS: 58 QRSD: 109 T: 18 QT: 345 QTc: 437 Interpretive Statements SINUS RHYTHM WITH MARKED SINUS ARRHYTHMIA WITH FIRST DEGREE AV BLOCK LOW QRS VOLTAGE IN PRECORDIAL LEADS [QRS DEFLECTION < 1.0 mV IN CHESTLEADS] INCOMPLETE RIGHT BUNDLE BRANCH BLOCK [90+ ms QRS DURATION, TERMINAL RIN V1/V2, 40+ ms S IN I/aVL/V4/V5/V6] us Joshua Yin MD ECG ORDERABLES Final Result [facility] * POCT glucose (12/05/2023 10:38 AM CDT) [facility] GLUCOSE POC 93 70 - 109 12/05/2023 10:43 AM CDT [facility] 12/05/2023 10:3 8 AM CDT us Joshua Yin MD POCT ORDERABLES - DEVICE Final R esult Performing Organization Address [facility] de Phone Number [facility] [address] [place] [address], [place] [phone] * (ABNORMAL) POCT ACTIVATED CLOTTING TIME - ISTAT DOCKED DEVICE (12/05/2023 9:49 AM CDT) ACTIVATED CLOTTING TIME (ACT HMT OR LMT) 287(H) 74 - 137 SEC 12/07/2023 7:09 AM CDT [facility] 12/05/2023 9:49 AM CDT us Joshua Yin MD POCT ORDERABLES - DEVICE Final R esult Performing Organization Address [facility] de Phone Number [facility] [address] [place] [address], [place] [phone] * (ABNORMAL) POCT ACTIVATED CLOTTING TIME - ISTAT DOCKED DEVICE (12/05/2023 9:19 AM CDT) ACTIVATED CLOTTING TIME (ACT HMT OR LMT) 287(H) 74 - 137 SEC 12/07/2023 7:09 AM CDT [facility] 12/05/2023 9:19 AM CDT us Joshua Yin MD POCT ORDERABLES - DEVICE Final R esult Performing Organization Address [facility] Co de Phone Number [facility] [address] [place] [address], [place] [phone] * (ABNORMAL) POCT glucose (12/05/2023 7:17 AM CDT) GLUCOSE POC 63(L) 70 - 109 12/05/2023 10:45 AM CDT [facility] 12/05/2023 7:17 AM CDT us Joshua Yin MD POCT ORDERABLES - DEVICE Final R esult [facility] [address] [place] [address], [phone] * ECG 12 lead (12/05/2023 7:01 AM CDT) 12/05/2023 7:01 AM CDT Narrative [facility] - 12/06/2023 9:46 AM CDT ? [facility] ?[address] [place], [place] ??[address] ? Test Date: ?2023-12-05 Pat Name: ? ELZA MCKEON ? Department: ?? 1 ? Room: ? [id number] Gender: ? Male ? Track Template Maker: ?? Sc : ?1960 ? Requested By: JOSHUA YIN Order Number: [id number] ? Reading : ?? Kyle Mckeon ? Measurements Intervals ?[place] ? Rate: ? 85 ? P: ? WI: ? 0 ?QRS: ?60 QRSD: ? 141 ?T: ?31 QT: ? 407 ? QTc: ?487 ? Interpretive Statements ATRIAL FIBRILLATION RIGHT BUNDLE BRANCH BLOCK ??[120+ ms QRS DURATION, UPRIGHT V1, 40+ ms S IN I/aVL/V4/V5/V6] Procedure Note Kyle Mckeon MD - 12/06/2023 [facility] [address] [place] [address] Test Date: 2023-12-05 Pat Name: ELZA [facility] Department: 1 Room: [address] Gender: Male Track Template Maker: Ne : 1960 Requested By: JOSHUA YIN Order Number: [id number] Jose Antonio MD: Kyle Mckeon Measurements Intervals [place] Rate: 85 P: WI: 0 QRS: 60 QRSD: 141 T: 31 QT: 407 QTc: 487 Interpretive Statements ATRIAL FIBRILLATION RIGHT BUNDLE BRANCH BLOCK [120+ ms QRS DURATION, UPRIGHT V1, 40+ ms SIN I/aVL/V4/V5/V6] Joshua Yin MD ECG ORDERABLES Final Result [facility] documented in this encounter Visit Diagnoses [...] Post-Op documented in this encounter Care Teams Thoracic Medicine Physician Relationship Specialty Start Date End Date Ti Zamora MD [address] [place] [phone] PCP - General FAMILY PRACTICE 12/03/21 Elza Allan MD [facility] Executive Director CARDIOVASCULAR DISEASE 08/19/16 Raul Santana MD CLINICAL CARDIAC ELECTROPHYSIOLOGY 06/16/17 Danny Blackwell MD [address] [place] [address] [phone] ORTHOPAEDIC SURGERY 05/01/19 Gayle Arce APRN, DIRECTOR OF GUIDANCE-C [address] [facility] [address] [phone] NURSE PRACTITIONER 03/03/20 Mendel Shah DPM [address] [place] [address] [place], [place] [phone] Consulting Physician PODIATRY/SURGERY 06/27/23 06/26/24 documented as of this encounter
--- OUTSIDE RECORDS SUMMARY | 2024-04-23 05:13 | XMS_ITS | Encounter Summary ---
Author Organization [facility] Address [address] [place] [address]. [place], [place] [address] [place] [address] Care Team Providers Care Driver Trainer Name Role Phone Evaristo Allan MD Unavailable Unavailabl Raul Duran MD Unavailable Unavailabl Danny Lopes MD Unavailable [phone] Gayle Arce APRN, ACCOUNT SERVICE ASSOCIATE-C Unavailable [phone] Ti Bonilla MD Primary Care Provider [phone] Mendel Shah DPM Unavailable [phone] Jyoti Escobar MD Unavailable [phone] Reason for Referral * Consultation (Routine) - New Request Specialty Diagnoses / Procedures Referred By Contac t Referred To Contact SLEEP & RESPIRATORY CARE Diagnoses Obstructive sleep apnea Acute on chronic systolic congestive heart failure ([facility]/HCC [facility]) Procedures OFFICE/OUTPATIENT NEW LOW MDM 30-44 MINUTES OFFICE/OUTPT VISIT,NEW,LEVL IV OFFICE/OUTPT VISIT,NEW,LEVL V OFFICE/OUTPT VISIT,EST,LEVL III OFFICE/OUTPT VISIT,EST,LEVL IV OFFICE/OUTPT VISIT,EST,LEVL V Gayle Arce APRN, ACCOUNT SERVICE ASSOCIATE-C [address] [facility] [address] [place] [address] Phone: tel: fax: Kali Lewis MD [address] [place] [address] Phone: tel: fax: Referral ID Status Reason Start Date Expiration Date Visits Requested Visits Authorized [id number] New Request Specialty Services 12/27/2023 12/26/2024 1 1 Reason for Visit * Reason Onset Date Comments Referral 12/27/2023 Referral for Pul omonary placed Encounter Details Date Type Department Care Team ([facility] st Contact Info) Description 12/27/2023 Telephone [facility] [address] [place] [address] Gayle Arce APRN, PELON [address] [facility] [address] [place] [address] Referral (Referral for Pulomonary placed) Social History Tobacco Use Types Packs/Day Years Used Date Smoking Tobacco: Never Smokeless Tobacco: Never Alcohol Use Standard Drinks/Week Comments Yes 0 (1 standard drink = 0.6 oz pur e alcohol) social [facility] Utilities Answer Date Recorded In the past 12 months has e electric, gas, oil, or water [employer] threatened to shut off services in your [...] 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 Dx: requiring home oxygen and SOB * Shanon Harris LPN - 12/27/2023 1:57 PM CDTSummary: Referral for Pulomonary placed Referral for Pul[facility]ary [facility] to [facility] documented in this encounter Plan of Treatment Upcoming Encounters Date Type Department Care Team (Late st Contact Info) Description 04/25/2024 11:00 AM GIFT OFFICER Appointment [facility] [address] [place] [address] Ti Bonilla MD [address] [place] [phone] 05/23/2024 3:30 PM GIFT OFFICER Office Visit [facility] [address] [place] [phone] Jyoti Escobar MD [address] [place] [address], [place] [address] Scheduled Referrals Name Type Priority Associated Diagnoses Orde r Schedule Ambulatory referral to Pulmonology/Sleep and Respiratory Care Referral Routine Obstructive sleep apnea Acute on chronic systolic congestive heart failure ([facility]) Ordered: 12/27/2023 documented as of this encounter Goals Goal Patient Goal Type Associated Problems Recent Progress Patient-Stated? Author Safety ? Patient/family will have appropriate support at home upon discharge Lifestyle No Alex Lozano, audiologist - family caregiver with be involved in care transitions and discharge planning Lifestyle No Alex Lozano, RN Patient will return to prior living situation and remain independent in ADLs upon discharge from hospital Lifestyle No Alex Lozano RN documented as of this encounter Visit Diagnoses Diagnosis Obstructive sleep apnea- Primary Obstructive sleep apnea (adult) (pediatric) Acute on chronic systolic congestive heart failure ([facility]) Acute on chronic systolic heart failure documented in this encounter Care Teams Driver Trainer Relationship Specialty Start Date End Date Ti Bonilla MD [address] [place] [phone] PCP - General FAMILY PRACTICE 12/03/21 Evaristo Allan MD [facility] CARDIOVASCULAR DISEASE 08/19/16 Raul Santana MD CLINICAL CARDIAC ELECTROPHYSIOLOGY 06/16/17 Danny Blackwell MD [address] [place] [address] ORTHOPAEDIC SURGERY 05/01/19 Gayle Arce APRN, ACCOUNT SERVICE ASSOCIATE-C [address] [place] [address] [address] [place] [address] NURSE PRACTITIONER 03/03/20 Mendel Shah DPM [address] [place] [address] [place] [address] Consulting Physician PODIATRY/SURGERY 06/27/23 06/26/24 Jyoti Escobar MD [address] [place], [place] [phone] INTERVENTIONAL CARDIOLOGY 12/27/23 documented as of this encounter
--- OUTSIDE RECORDS SUMMARY | 2024-04-23 05:13 | XMS_ITS | Encounter Summary ---
Author Organization [facility] Address [address] [place] [address]. [place] [phone] Care Team Providers Care Airways Operations Specialist Name Role Phone Evaristo Allan MD Unavailable Unavailabl Raul Duran MD Unavailable Unavailabl Danny Lopes MD Unavailable [phone] Gayle Arce APRN, SYSTEMS SUPPORT OFFICER-C Unavailable Ti Bonilla MD Primary Care Provider [phone] Mendel Shah DPM Unavailable [phone] Jyoti Escobar MD Unavailable [phone] Encounter Details Date Type Department Care Team (Latest Contact Info) Description 03/20/2024 Travel Social History Tobacco Use Types Packs/Day Years Used Date Smoking Tobacco: Never Smokeless Tobacco: Never Alcohol Use Standard Drinks/Week Comments Yes 0 (1 standard drink = 0.6 oz pur e alcohol) social [facility] Utilities Answer Date Recorded In the past 12 months has e [employer], gas, oil, or water [employer] threatened to shut off services in your [...] any time in the past 12 m [facility], were you homeless or living in a skilled nursing (including now)? 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 Author Safety ? Patient/family will have appropriate support at home upon discharge Lifestyle No Alex Lozano, psychiatric lpn - family caregiver with be involved in care transitions and discharge planning Lifestyle No Alex Lozano, RN Patient will return to prior living situation and remain independent in ADLs upon discharge from hospital Lifestyle No Alex Lozano, RN documented as of this encounter Visit Diagnoses Not on filedocumented in this encounter Care Teams Airways Operations Specialist Relationship Specialty Start Date End Date Ti Bonilla MD [address] [place] [address] PCP - General FAMILY PRACTICE 12/03/21 Evaristo Allan MD [place] Technician CARDIOVASCULAR DISEASE 08/19/16 Raul Santana MD CLINICAL CARDIAC ELECTROPHYSIOLOGY 06/16/17 Danny Blackwell MD [address] [place] [address] ORTHOPAEDIC SURGERY 05/01/19 Gayle Arce APRN, SYSTEMS SUPPORT OFFICER-C [address] [facility] [address] [address] NURSE PRACTITIONER 03/03/20 Mendel Shah DPM [address] [place] [address] Consulting Physician PODIATRY/SURGERY 06/27/23 06/26/24 Jyoti Escobar MD [address] [place], [place] [address] INTERVENTIONAL CARDIOLOGY 12/27/23 documented as of this encounter
--- OUTSIDE RECORDS SUMMARY | 2024-04-23 05:13 | XMS_ITS | Encounter Summary ---
Author Organization [facility] Address [address] [place] [address]. [place] [address] [place] [address] Care Team Providers Care Promotional Demonstrator Name Role Phone Evaristo Allan MD Unavailable Unavailabl Raul Duran MD Unavailable Unavailabl Danny Lopes MD Unavailable [phone] Gayle Arce APRN, TRANSPORTATION MUSEUM HELPER-C Unavailable Ti Bonilla MD Primary Care Provider [phone] Mendel Shah DPM Unavailable [phone] Reason for Visit * Reason Onset Date Comments Holter Monitor 09/08/2023 * Imaging (Routine) - Closed Specialty Diagnoses / Procedures Referred By Conttianna t Referred To Contact Cardiology Diagnoses Atypical atrial flutter ([facility]) Procedures CLINIC - [address] 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 [address] [place] [address] Ti Bonilla MD [address] [place] [phone] 05/23/2024 3:30 PM PROCED TECH Office Visit [facility] [address] [place] [phone] Jyoti Escobar MD [address] [place] [address] documented as of this encounter Procedures Procedure Name Priority Date/Time Associated Diagnosis Comments MOBILE CONTINUOUS TELEMETRY Routine 10/08/2023 6:49 AM CDT Atypical atrial flutter ([facility]) documented in this encounter Results * CLINIC - [address] [facility] - Today (10/08/2023 6:49 AM CDT) Narrative [facility] - 10/08/2023 6:49 AM CDT Ambulatory Slime Plant Operator Helper Report Patient Name: Evaristo Zelaya : 1960 [facility]: [id number] Date of Testin09/25/2023 Ordering Provider: MARKELL STEVENS [...] flutter documented in this encounter Care Teams Promotional Demonstrator Relationship Specialty Start Date End Date Ti Bonilla MD [address] [place] [phone] PCP - General FAMILY PRACTICE 12/03/21 Evaristo Allan MD Taylor Director Consumer Affairs CARDIOVASCULAR DISEASE 08/19/16 Raul Santana MD CLINICAL CARDIAC ELECTROPHYSIOLOGY 06/16/17 Danny Blackwell MD [address] [place] [address] ORTHOPAEDIC SURGERY 05/01/19 Gayle Arce APRN, TRANSPORTATION MUSEUM HELPER-C [address] [facility] [address] [place] [address] NURSE PRACTITIONER 03/03/20 Mendel Shah DPM [address] [place] [address] [place] [address] Consulting Physician PODIATRY/SURGERY 06/27/23 06/26/24 documented as of this encounter
--- OUTSIDE RECORDS SUMMARY | 2024-04-23 05:13 | XMS_ITS | Encounter Summary ---
Author Organization [facility] Address [address] [place] [address]. [place] [address] [place] [address] Care Team Providers Care Gas Fitter Apprentice Name Role Phone Evaristo Allan MD Unavailable Unavailabl Raul Duran MD Unavailable Unavailabl Danny Lopes MD Unavailable [phone] Gayle Arce APRN, SHOE STOCK ASSOCIATE-C Unavailable Ti Bonilla MD Primary Care Provider Mendel Shah DPM Unavailable [phone] Reason for Visit * Reason Onset Date Comments Results 09/13/2023 Encounter Details Date Type Department Care Team ([facility] Contact Info) Description 09/13/2023 Telephone [facility] [address] [place] [address] Gayle Arce APRN, SHOE STOCK ASSOCIATE-C [address] [facility] [address] [place] [address] Results Social History Tobacco Use [...] 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 [address] [place] [address] Ti Bonilla MD [address] [place] [phone] 05/23/2024 3:30 PM BANQUET COORDINATOR Office Visit [facility] [address] [place] [address] Jyoti Escobar MD [address] [place] [address] documented as of this encounter Visit Diagnoses Not on filedocumented in this encounter Care Teams Gas Fitter Apprentice Relationship Specialty Start Date End Date Ti Bonilla MD [address] [place] [phone] PCP - General FAMILY PRACTICE 12/03/21 Evaristo Allan MD [place] Development Team Lead CARDIOVASCULAR DISEASE 08/19/16 Raul Santana MD CLINICAL CARDIAC ELECTROPHYSIOLOGY 06/16/17 Danny Blackwell MD [address] [place] [address] ORTHOPAEDIC SURGERY 05/01/19 Gayle Arce APRN, SHOE STOCK ASSOCIATE-C [address] [place] [address] [address] [place] [phone] NURSE PRACTITIONER 03/03/20 Mendel Shah DPM [address] [place] [address] [place] [address] Consulting Physician PODIATRY/SURGERY 06/27/23 06/26/24 documented as of this encounter
--- OUTSIDE RECORDS SUMMARY | 2024-04-23 05:13 | XMS_ITS | Encounter Summary ---
Author Organization [facility] Address [address] [place] [address]. [place] [address] [place] [address] Care Team Providers Care Demurrage Man Name Role Phone Evaristo Allan MD Unavailable Unavailabl Raul Duran MD Unavailable Unavailabl e Danny Blackwell MD Unavailable [phone] Gayle Arce APRN, CUSTOMER SERVICES MANAGER-C Unavailable Ti Bonilla MD Primary Care Provider Mendel Shah DPM Unavailable [phone] Encounter Details Date Type Department Care Team (Late st Contact Info) Description 10/31/2023 Prep for Procedure Ventana's Chief Ultrasound Technologist Pre/Post [address] [place] [address] Joshua Yin MD [address] [place] [address] Social History Tobacco Use Types [...] 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 Not on [...] st Contact Info) Description 04/25/2024 11:00 AM EMTS Appointment [facility] [address] [place] [address] Ti Bonilla MD [address] [place] [phone] 05/23/2024 3:30 PM EMTS Office Visit [facility] [address] [place] [phone] Jyoti Escobar MD [address] [place] [phone] documented as of this encounter Visit Diagnoses Not on filedocumented in this encounter Care Teams Demurrage Man Relationship Specialty Start Date End Date Ti Bonilla MD [address] [place] [address] PCP - General FAMILY PRACTICE 12/03/21 Evaristo Allan MD Shushan Work Order Sorting Clerk CARDIOVASCULAR DISEASE 08/19/16 Raul Santana MD CLINICAL CARDIAC ELECTROPHYSIOLOGY 06/16/17 Danny Blackwell MD 5 [place] [address] ORTHOPAEDIC SURGERY 05/01/19 Gayle Arce APRN, CUSTOMER SERVICES MANAGER-C [address] [facility] [address] [place] [address] NURSE PRACTITIONER 03/03/20 Mendel Shah DPM [address] [place] [address] [place] [address] Consulting Physician PODIATRY/SURGERY 06/27/23 06/26/24 documented as of this encounter
--- OUTSIDE RECORDS SUMMARY | 2024-04-23 05:13 | XMS_ITS | Encounter Summary ---
Author Organization [facility] Address [address] [place] [address]. [place], [place] [address] [place] [address] Care Team Providers Care Manager Of Corporate Communications Name Role Phone Elza Allan MD Unavailable Unavailabl Raul Duran MD Unavailable Unavailabl Danny Lopes MD Unavailable [phone] Gayle Arce APRN, HEALTH AND NUTRITION SPECIALIST-C Unavailable Ti Bonilla MD Primary Care Provider Mendel Shah DPM Unavailable [phone] Jyoti Escobar MD Unavailable [phone] Encounter Details Date Type Department Care Team (Late st Contact Info) Description 02/23/2024 Orders Only [facility] [address] [place] [address] Joshua Yin MD [address] [place] [address] Social History Tobacco Use Types Packs/Day Years Used Date Smoking Tobacco: Never Smokeless Tobacco: Never Alcohol Use Standard Drinks/Week Comments Yes 0 (1 standard drink = 0.6 oz pur e alcohol) social [facility] Utilities Answer Date Recorded In the [...] st Contact Info) Description 04/25/2024 11:00 AM OPERATOR Appointment [facility] [address] [place] [address] Ti Bonilla MD [address] [place] [phone] 05/23/2024 3:30 PM OPERATOR Office Visit [facility] [address] [place] [address] Jyoti Escobar MD [address] [place] [address] documented as of this encounter Goals Goal Patient Goal Type Associated Problems Recent Progress Patient-Stated? Author Safety ? Patient/family will have appropriate support at home upon discharge Lifestyle No Alex Lozano truck trailer mechanic - family caregiver with be involved in care transitions and discharge planning Lifestyle No Alex Lozano RN Patient will return to prior living situation and remain independent in ADLs upon discharge from hospital Lifestyle No Alex Lozano RN documented as of this encounter Results * ELECTROCARDIOGRAM (02/29/2024 1:57 PM OPERATOR) 02/29/2024 1:57 PM OPERATOR Narrative [facility] - 03/08/2024 4:06 PM OPERATOR ? [facility] ?[address] [place], [place] ??[address] ? Test Date: ?2024-02-29 Pat Name: ? ELZA MCKEON ? Department: ?? 105 ? Room: ? Gender: ? Male ? Splunk Architect: ?? dp : ?1960 ? Requested By: JOSHUA YIN Order Number: [id number] ?Jose Antonio OSMAN: ?? Carlos Sheth ? Measurements Intervals ?[place] ? Rate: ? 89 ? P: ?34 WI: ? 143 ?QRS: ?78 QRSD: ? 102 ?T: ?49 QT: ? 360 ? QTc: ?440 ? Interpretive Statements SINUS RHYTHM LOW QRS VOLTAGE IN PRECORDIAL LEADS INCOMPLETE RIGHT BUNDLE BRANCH BLOCK ATOR Procedure Note Carlos Sheth MD - 03/08/2024 [facility] [place] [address] [place] [address] Test Date: 2024-02-29 Pat Name: [facility] Department: 105 Room: Gender: Male Splunk Architect: daniel : 1960 Requested By: JOSHUA YIN Order Number: [id number] Jose Antonio MD: Reyna Measurements Intervals [place] Rate: 89 P: 34 WI: 143 QRS: 78 QRSD: 102 T: 49 QT: 360 QTc: 440 Interpretive Statements SINUS RHYTHM LOW QRS VOLTAGE IN PRECORDIAL LEADS INCOMPLETE RIGHT BUNDLE BRANCH BLOCK ATOR Joshua Yin MD PROCEDURES-ORDERABLE NO CHARGE F inal Result KIKE FROST documented in this encounter Visit Diagnoses Diagnosis Paroxysmal atrial fibrillation ([facility])- Primary Atrial fibrillation Atypical atrial flutter ([facility]) Atrial flutter Atypical atrial flutter ([facility])- Primary Atrial flutter Paroxysmal atrial fibrillation ([facility]) Atrial fibrillation documented in this encounter Care Teams Manager Of Corporate Communications Relationship Specialty Start Date End Date Ti Bonilla MD [address] [place] [phone] PCP - General FAMILY PRACTICE 12/03/21 Elza Allan MD [place] Imposer CARDIOVASCULAR DISEASE 08/19/16 Raul Santana MD CLINICAL CARDIAC ELECTROPHYSIOLOGY 06/16/17 Danny Blackwell MD [address] [place] [phone] ORTHOPAEDIC SURGERY 05/01/19 Gayle Arce APRN, HEALTH AND NUTRITION SPECIALIST-C [address] [place] [address] [address] [place] [address] NURSE PRACTITIONER 03/03/20 Mendel Shah DPM [facility] [place] [address] Consulting Physician PODIATRY/SURGERY 06/27/23 06/26/24 Jyoti Escobar MD [address] [place] [address] INTERVENTIONAL CARDIOLOGY 12/27/23 documented as of this encounter
--- OUTSIDE RECORDS SUMMARY | 2024-04-23 05:13 | XMS_ITS | Encounter Summary ---
Author Organization [facility] Address [address] [place] [address]. [place], [place] [address] [place] [address] Care Team Providers Care Scutcher Tender Name Role Phone Elza Allan MD Unavailable Unavailabl Raul Duran MD Unavailable Unavailabl e Danny Blackwell MD Unavailable [phone] Gayle Arce APRN, OCCUPATIONAL THERAPY DEPARTMENT CHAIR-C Unavailable Ti Bonilla MD Primary Care Provider [phone] Mendel Shah DPM Unavailable [phone] Jyoti Escobar MD Unavailable [phone] Reason for Referral * Procedure (Routine) - New Request Specialty Diagnoses / Procedures Referred By Charito ledbetter Referred To Contact Diagnoses Exertional shortness of breath Procedures Complete PFT (pre/post [place], Lung Vol, Diff Capacity) (35393, 38430, 49610, 00117) Des Siegel MD [address] [place] [address] Phone: tel: fax: Referral ID Status Reason Start Date Expiration Date V isits Requested Visits Authorized [id number] New Request 03/22/2024 04/22/2025 1 1 UNITY REPRESENTATIVE Reason for Visit * Procedure (Routine) - New Request Specialty Diagnoses / Procedures Referred By Conttianna t Referred To Contact Diagnoses Exertional shortness of breath Procedures Complete PFT (pre/post [place], Lung Vol, Diff Capacity) (81785, 81125, 90554, 27332) Des Siegel MD [address] [place] [address] Phone: tel: fax: Referral ID Status Reason Start Date Expiration Date V isits Requested Visits Authorized [id number] New Request 03/22/2024 04/22/2025 1 1 Encounter Details Date Type Department Care Team (Latest Contact Info) Description 04/05/2024 12:36 PM COMMUNITY REPRESENTATIVE - 04/05/2024 11:59 PM COMMUNITY REPRESENTATIVE Hospital Encounter [facility] [address] [place] [address] [place] [address] Des Siegel MD [address] [place] [address] Discharge Disposition: Home or Self Care (Routine Discharge) Social History Tobacco Use Types Packs/Day Years Used Date Smoking Tobacco: Never Smokeless Tobacco: Never Alcohol Use Standard Drinks/Week Comments Yes 0 (1 standard drink = 0.6 oz pur e alcohol) social [facility] Utilities Answer Date Recorded In the past 12 months has e [employer], gas, oil, or water [employer] threatened to shut off services in your [...] any time in the past 12 m [facility], were you homeless or living in a [...] bedtime. 45 tablet 3 12/26/2023 Continuous Glucose Distributed Energy Systems Consultant (FREESTYLE LI 3 READER) Device Inject 1 [...] 09/13/2019 OXYGEN CONCENTRATOR SUPPLY, DME,Indications:CH F exacerbation ([facility]) 1 Device by Nasal route continuous. [...] TRUEPLUS 5-BEVEL PEN NEEDLES 29G X 12.7MM [facility] 02/17/2024 TRUEPLUS PEN NEEDLES 31G X 8 MM [facility] 01/19/2021 documented as of this encounter Plan of Treatment Upcoming Encounters Date Type Department Care Team (Late st Contact Info) Description 04/25/2024 11:00 AM COMMUNITY REPRESENTATIVE Appointment [facility] [address] [facility] [place] [address] Ti Bonilla MD [address] [place] [phone] 05/23/2024 3:30 PM COMMUNITY REPRESENTATIVE Office Visit [facility] [place] [address] Jyoti Escobar MD [address] [place] [address] documented as of this encounter Goals Goal Patient Goal Type Associated Problems Recent Progress Patient-Stated? Author Safety ? Patient/family will have appropriate support at home upon discharge Lifestyle No Alex Lozano, cvt tech - family caregiver with be involved in care transitions and discharge planning Lifestyle No Alex Lozano, RN Patient will return to prior living situation and remain independent in ADLs upon discharge from hospital Lifestyle No Alex Lozano, RN documented as of this encounter Procedures Procedure Name Priority Date/Time Associated Diagnosis Comments PULMONARY FUNCTION TEST Routine 04/05/2024 12:36 PM COMMUNITY REPRESENTATIVE Exertional shortness of breath documented in this encounter Results * Complete PFT (pre/post [place], Lung Vol, Diff Capacity) (57364, 15556, 56872, 89272) (04/05/2024 12:36 PM COMMUNITY REPRESENTATIVE) 04/05/2024 12:3 6 PM COMMUNITY REPRESENTATIVE Narrative ESCRIPTION - 04/06/2024 6:15 PM COMMUNITY REPRESENTATIVE Patient Name: ELZA MCKEON Date of : 1960 Account: [id number] Facility: [facility] Location: [facility] Date of Service: 04/05/2024 Pulmonary Function Test [...] Sallie SIEGEL MD D: ??04/05/2024 09:52 PM ??#[id number] T: ??04/05/2024 10:00 PM ??/[facility] Wilner Siegel MD PFT ORDERABLES Final Result [...] 04/05/24 at 1300 Given 04/05/2024 12:58 PM COMMUNITY REPRESENTATIVE 4 puffs documented in this encounter Care Teams Scutcher Tender Relationship Specialty Start Date End Date Ti Bonilla MD [address] [place] [phone] PCP - General FAMILY PRACTICE 12/03/21 Elza Allan MD Check Records Management Assistant CARDIOVASCULAR DISEASE 08/19/16 Raul Santana MD CLINICAL CARDIAC ELECTROPHYSIOLOGY 06/16/17 Danny Blackwell MD [address] [place] [address] ORTHOPAEDIC SURGERY 05/01/19 Gayle Arce APRN, OCCUPATIONAL THERAPY DEPARTMENT CHAIR-C [address] [facility] [address] [place] [address] NURSE PRACTITIONER 03/03/20 Mendel Shah DPM [address] [facility] [place] [address] Consulting Physician PODIATRY/SURGERY 06/27/23 06/26/24 Jyoti Escobar MD [address] [place] [address] INTERVENTIONAL CARDIOLOGY 12/27/23 documented as of this encounter
--- OUTSIDE RECORDS SUMMARY | 2024-04-23 05:13 | XMS_ITS | Encounter Summary ---
Author Organization [facility] Address [address] [place] [address]. [place], [place] [address] [place] [address] Care Team Providers Care Script Editor Name Role Phone Evaristo Allan MD Unavailable Unavailabl Raul Duran MD Unavailable Unavailabl Danny Lopes MD Unavailable [phone] Gayle Arce APRN, NP-C Unavailable Ti Bonilla MD Primary Care Provider [phone] Mendel Shah DPM Unavailable [phone] Jyoti Escobar MD Unavailable [phone] Reason for Referral * Imaging (Routine) - Closed Specialty Diagnoses / Procedures Referred By Contac t Referred To Contact Cardiology Diagnoses Paroxysmal atrial fibrillation ([facility]) Procedures CLINIC - [address] [facility] - Today Nandini Salcido NP [address], [place]. [address] [place] [address] Phone: tel: fax: Referral ID Status Reason Start Date Expiration Date Visits Re quested Visits Authorized [id number] Closed 03/26/2024 03/26/2025 1 1 CIATE MEDICAL DIRECTOR Reason for Visit * Reason Onset Date Comments Question 03/26/2024 Concerns 03/26/2024 Encounter Details Date Type Department Care Team ([facility] Contact Info) Description 03/26/2024 Telephone [facility] [address] [place] [phone] Joshua Yin MD [address] [place] [address] Question; Concerns Social History Tobacco Use Types Packs/Day Years Used Date Smoking Tobacco: Never Smokeless Tobacco: Never Alcohol Use Standard Drinks/Week Comments Yes 0 (1 standard drink = 0.6 oz pur e alcohol) social [facility] Utilities Answer Date Recorded In the past 12 months has e [employer] [place], gas, oil, or water [employer] threatened to shut off services in your [...] any time in the past [address] [place], were you homeless or living [...] this encounter Progress Notes * Jennifer Ramirez, EXECUTIVE STAFF ASSISTANT - 03/30/2024 2:30 PM CST Rcv'd a Teams message from our [employer] team that his [facility] plans terms as of 04/17/24. I called Evaristo at [phone]. He states that he just completed his process for insurance for the next year and that he will have the same plan and the same I.D. #. [employer] team notified via Teams. CIATE MEDICAL DIRECTOR * Nandini Salcido NP - 03/26/2024 3:29 PM CSTAddended by: NANDINI SALCIDO on: 03/26/2024 03:29 PM Modules accepted: Orders CIATE MEDICAL DIRECTOR * Betty Schaeffer - 03/26/2024 3:21 PM CST Spoke with pt and he states he is having frequent palpitations. Spoke with DW and relayed message that DW will put in an order for a monitor so she can see what is going on. Pt v/u. CIATE MEDICAL DIRECTOR documented in this encounter Plan of Treatment Upcoming Encounters Date Type Department Care Team (Late st Contact Info) Description 04/25/2024 11:00 AM ASSOCIATE MEDICAL DIRECTOR Appointment [facility] [address] [place] [address] Ti Bonilla MD [address] [place] [phone] 05/23/2024 3:30 PM ASSOCIATE MEDICAL DIRECTOR Office Visit [facility] [address] [place] [phone] Jyoti Escobar MD [address] [place] [address] Scheduled Orders Name Type Priority Associated Diagnoses Orde r Schedule CLINIC - [address] [facility] - Today EKG-NonRad Routine Paroxysmal atrial fibrillation ([facility]) Expected: 03/26/2024, Expires: 03/26/2025 documented as of this encounter Goals Goal Patient Goal Type Associated Problems Recent Progress Patient-Stated? Author Safety ? Patient/family will have appropriate support at home upon discharge Lifestyle No Alex Lozano production hand - family caregiver with be involved in care transitions and discharge planning Lifestyle No Alex Lozano RN Patient will return to prior living situation and remain independent in ADLs upon discharge from hospital Lifestyle No Alex Loznao RN documented as of this encounter Visit Diagnoses Diagnosis Paroxysmal atrial fibrillation ([facility])- Primary Atrial fibrillation documented in this encounter Care Teams Script Editor Relationship Specialty Start Date End Date Ti Bonilla MD [address] [place] [phone] PCP - General FAMILY PRACTICE 12/03/21 Evaristo Allan MD [place] Engineering Leader CARDIOVASCULAR DISEASE 08/19/16 Raul Santana MD CLINICAL CARDIAC ELECTROPHYSIOLOGY 06/16/17 Danny Blackwell MD [address] [place] [address] ORTHOPAEDIC SURGERY 05/01/19 Gayle Arce APRN, ALL AROUND PRESSER-C [address] [place] [address] [address] [place] [phone] NURSE PRACTITIONER 03/03/20 Mendel Shah DPM [address] [place] [address] [place] [address] Consulting Physician PODIATRY/SURGERY 06/27/23 06/26/24 Jyoti Escobar MD [address] [place] [address] INTERVENTIONAL CARDIOLOGY 12/27/23 documented as of this encounter
--- OUTSIDE RECORDS SUMMARY | 2024-04-23 05:13 | XMS_ITS | Encounter Summary ---
Author Organization [facility] Address [address] [place] [address]. [place], [place] [address] [place] [address] Care Team Providers Care Journeyman Sheet Metal Worker Name Role Phone Evaristo Allan MD Unavailable Unavailabl Raul Duran MD Unavailable Unavailabl Danny Lopes MD Unavailable [phone] Gayle Arce APRN, EMERY WHEEL WORKER-C Unavailable Ti Bonilla MD Primary Care Provider Mendel Shah DPM Unavailable [phone] Jyoti Escobar MD Unavailable [phone] Reason for Visit * Reason Onset Date Comments Advice 02/29/2024 Encounter Details Date Type Department Care Team ([facility] st Contact Info) Description 02/29/2024 Telephone [facility] [address] [place] [address] Gayle Arce APRN, EMERY WHEEL WORKER-C [address] [facility] [address] [place] [address] Advice Social History Tobacco Use [...] time in the past 12 m [facility], were you homeless or living in a residential (including now)? 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 [...] if they can see him sooner in [place]. If he continues to have chest discomfort and takes nitroglycerin, I asked him to call our office so that we can consider adding Imdur. If we do this, I may need to adjust some of his other medications due to his lower blood pressures. He v/u. TING PULLER documented in this encounter Plan of Treatment Upcoming Encounters Date Type Department Care Team (Late st Contact Info) Description 04/25/2024 11:00 AM SHEETING PULLER Appointment [facility] [address] [place] [address] [place] [address] Ti Bonilla MD [address] [place] [phone] 05/23/2024 3:30 PM SHEETING PULLER Office Visit [facility] [place] [place] [phone] Jyoti Escobar MD [address] [place] [address] [phone] documented as of this encounter Goals Goal Patient Goal Type Associated Problems Recent Progress Patient-Stated? Author Safety ? Patient/family will have appropriate support at home upon discharge Lifestyle No Alex Lozano, product support specialist - family caregiver with be involved in care transitions and discharge planning Lifestyle No Alex Lozano, RN Patient will return to prior living situation and remain independent in ADLs upon discharge from hospital Lifestyle No Alex Lozano, RN documented as of this encounter Visit Diagnoses Not on filedocumented in this encounter Care Teams Journeyman Sheet Metal Worker Relationship Specialty Start Date End Date Ti Bonilla MD [address] [place] [phone] PCP - General FAMILY PRACTICE 12/03/21 Evaristo Allan MD [place] Formula Room Worker CARDIOVASCULAR DISEASE 08/19/16 Raul Santana MD CLINICAL CARDIAC ELECTROPHYSIOLOGY 06/16/17 Danny Blackwell MD 5 [place] [address] ORTHOPAEDIC SURGERY 05/01/19 Gayle Arce APRN, EMERY WHEEL WORKER-C [address] [place] [address] [phone] NURSE PRACTITIONER 03/03/20 Mendel Shah DPM [address] [place] [address] Consulting Physician PODIATRY/SURGERY 06/27/23 06/26/24 Jyoti Escobar MD [address] [place], [place] [address] INTERVENTIONAL CARDIOLOGY 12/27/23 documented as of this encounter
--- OUTSIDE RECORDS SUMMARY | 2024-04-23 05:13 | XMS_ITS | Encounter Summary ---
Author Organization [facility] Address [address] [place] [address]. [place], [place] [address] [place] [address] Care Team Providers Care Solar Energy Advisor Name Role Phone Evaristo Allan MD Unavailable Unavailabl Raul Duran MD Unavailable Unavailabl Danny Lopes MD Unavailable [phone] Gayle Arce APRN, NP-C Unavailable Ti Bonilla MD Primary Care Provider Mendel Shah DPM Unavailable [phone] Jyoti Escobar MD Unavailable [phone] Reason for Visit * Reason Onset Date Comments Holter Monitor 04/04/2024 * Imaging (Routine) - Closed Specialty Diagnoses / Procedures Referred By Conttianna t Referred To Contact Cardiology Diagnoses Paroxysmal atrial fibrillation ([facility]) Procedures CLINIC - [address] [facility] - Today Shannan Lay, INTERNAL MEDICINE NURSE [address] [place] [place] [address] Phone: tel: fax: Referral ID Status Reason Start Date Expiration Date Visits Re quested Visits Authorized [id number] Closed 03/26/2024 03/26/2025 1 1 Encounter Details Date Type Department Care Team ([place] st Contact Info) Description 04/04/2024 10:30 AM WILDLIFE MANAGER Telephone [facility] [address] [place] [phone] Shannan Lay, INTERNAL MEDICINE NURSE [address] [place] [address] Holter Monitor Social History Tobacco Use Types Packs/Day Years Used Date Smoking Tobacco: Never Smokeless Tobacco: Never Alcohol Use Standard Drinks/Week Comments Yes 0 (1 standard drink = 0.6 oz pur e alcohol) social [facility] Utilities Answer Date Recorded In the past 12 months has e [employer], gas, oil, or water [employer] threatened to shut off services in your [...] any time in the past 12 m [facility], were you homeless or living in a intermediate (including now)? 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 Not on file Not [...] this encounter Progress Notes * Parrish Jefferson, Administrative Specialist - 04/04/2024 9:43 AM CST BG Shipped [employer] out: [id number] [employer] in: [id number] LIFE MANAGER documented in this encounter Plan of Treatment Upcoming Encounters Date Type Department Care Team (Late st Contact Info) Description 04/25/2024 11:00 AM WILDLIFE MANAGER Appointment [facility] [address] [place] [address] [place] [address] Ti Bonilla MD [address] [place] [phone] 05/23/2024 3:30 PM WILDLIFE MANAGER Office Visit [facility] [address] [place] [address] [place] [phone] Jyoti Escobar MD [address] [place] [address] documented as of this encounter Goals Goal Patient Goal Type Associated Problems Recent Progress Patient-Stated? Author Safety ? Patient/family will have appropriate support at home upon discharge Lifestyle No Alex Lozano RN Family - family caregiver with be involved in care transitions and discharge planning Lifestyle No Alex oLzano, [place] Patient will return to prior living situation and remain independent in ADLs upon discharge from hospital Lifestyle No Alex Lozano RN documented as of this encounter Visit Diagnoses Diagnosis Paroxysmal atrial fibrillation (CMS/HCC HHS/HCC) Atrial fibrillation documented in this encounter Care Teams Solar Energy Advisor Relationship Specialty Start Date End Date Ti Bonilla MD [address] [place] [phone] PCP - General FAMILY PRACTICE 12/03/21 Evaristo Allan MD [place] Assembler Truck Trailer CARDIOVASCULAR DISEASE 08/19/16 Raul Santana MD CLINICAL CARDIAC ELECTROPHYSIOLOGY 06/16/17 Danny Blackwell MD [address] [place] [address] ORTHOPAEDIC SURGERY 05/01/19 Gayle Arce APRN, INTERNAL MEDICINE NURSE-C [address] [place] [address] [phone] NURSE PRACTITIONER 03/03/20 Mendel Shha DPM [address] [place] [address] [place] [address] Consulting Physician PODIATRY/SURGERY 06/27/23 06/26/24 Jyoti Escobar MD [address] [place] [address] INTERVENTIONAL CARDIOLOGY 12/27/23 documented as of this encounter
--- OUTSIDE RECORDS SUMMARY | 2024-04-23 05:13 | XMS_ITS | Encounter Summary ---
Author Organization [facility] Address [address] [place] [address]. [place], [place] [address] [place], [place] [address] Care Team Providers Care Rail Grinder Name Role Phone Evaristo Allan MD Unavailable Unavailabl Raul Duran MD Unavailable Unavailabl Danny Lopes MD Unavailable [phone] Gayle Arce APRN, DANCE INSTRUCTOR-C Unavailable Ti Bonilla MD Primary Care Provider Mendel Shah DPM Unavailable [phone] Encounter Details Date Type Department Care Team (Latest Contact Info) Description 12/08/2023 Travel Social History Tobacco Use Types Packs/Day Years Used Date Smoking Tobacco: Never Smokeless Tobacco: Never Alcohol Use Standard Drinks/Week Comments Yes 0 (1 standard drink = 0.6 oz pur e alcohol) social [facility] Utilities Answer Date Recorded In the past 12 months has [facility] [employer], gas, oil, or water [employer] threatened to shut off services in your [...] any time in the past 12 m [facility], were you homeless or living in a senior living (including now)? No 12/08/2023 Sex and Gender [...] st Contact Info) Description 04/25/2024 11:00 AM FARMWORKER EGG PRODUCING FARM Appointment [facility] [address] [facility] [address] Ti Bonilla MD [address] [place] [phone] 05/23/2024 3:30 PM FARMWORKER EGG PRODUCING FARM Office Visit [facility] [address] [place] [phone] Jyoti Escobar MD [address] [place] [address] documented as of this encounter Visit Diagnoses Not on filedocumented in this encounter Care Teams Rail Grinder Relationship Specialty Start Date End Date Ti Bonilla MD [address] [place] [phone] PCP - General FAMILY PRACTICE 12/03/21 Evaristo Allan MD [place] Product Development Director CARDIOVASCULAR DISEASE 08/19/16 Raul Santana MD CLINICAL CARDIAC ELECTROPHYSIOLOGY 06/16/17 Danny Blackwell MD [address] [place] [address] ORTHOPAEDIC SURGERY 05/01/19 Gayle Arce, FRANCHISE BROKER, DANCE INSTRUCTOR-C [address] [place] [address] [address] [place] [address] NURSE PRACTITIONER 03/03/20 Mendel Shah DPM [facility] [place] [address] Consulting Physician PODIATRY/SURGERY 06/27/23 06/26/24 documented as of this encounter
--- OUTSIDE RECORDS SUMMARY | 2024-04-23 05:13 | XMS_ITS | Encounter Summary ---
Author Organization [facility] Address [address] [place] [address]. [place] [address] Care Team Providers Care Fruit And Vegetable Parer Name Role Phone Evaristo Allan MD Unavailable Unavailabl Raul Duran MD Unavailable Unavailabl Danny Lopes MD Unavailable [phone] Gayle Arce APRN, ACCOUNT RECEIVABLE ASSOCIATE-C Unavailable [phone] Ti Bonilla MD Primary Care Provider [phone] Mendel Shah DPM Unavailable [phone] Jyoti Escobar MD Unavailable [phone] Encounter Details Date Type Department Care Team (Latest Contact Info) Description 02/29/2024 Travel Social History Tobacco Use Types Packs/Day Years Used Date Smoking Tobacco: Never Smokeless Tobacco: Never Alcohol Use Standard Drinks/Week Comments Yes 0 (1 standard drink = 0.6 oz pur e alcohol) social [facility] Utilities Answer Date Recorded In the past 12 months has e [employer], gas, oil, or water [employer] threatened to shut off services in your [...] the past [address] [facility], were you homeless or living in a group home (including now)? No 12/08/2023 Sex and [...] Contact Info) Description 04/25/2024 11:00 AM CAREER DEVELOPMENT SPECIALIST Appointment [facility] [address] [place] [address] Ti Bonilla MD [address] [place] [phone] 05/23/2024 3:30 PM CAREER DEVELOPMENT SPECIALIST Office Visit [facility] [address] [place] [address] Jyoti Escobar MD [address] [place] [address] documented as of this encounter Goals Goal Patient Goal Type Associated Problems Recent Progress Patient-Stated? Author Safety ? Patient/family will have appropriate support at home upon discharge Lifestyle No Alex Lozano, rn licensed practical - family caregiver with be involved in care transitions and discharge planning Lifestyle No Alex Lozano, RN Patient will return to prior living situation and remain independent in ADLs upon discharge from hospital Lifestyle No Alex Lozano, RN documented as of this encounter Visit Diagnoses Not on filedocumented in this encounter Care Teams Fruit And Vegetable Parer Relationship Specialty Start Date End Date Ti Bonilla MD [address] [place] [address] PCP - General FAMILY PRACTICE 12/03/21 Evaristo Allan MD [place] [employer] Lab Technician CARDIOVASCULAR DISEASE 08/19/16 Raul Santana MD CLINICAL CARDIAC ELECTROPHYSIOLOGY 06/16/17 Danny Blackwell MD 5 [place] [address] ORTHOPAEDIC SURGERY 05/01/19 Gayle Arce APRN, ACCOUNT RECEIVABLE ASSOCIATE-C 6[address] [facility] [address] [phone] NURSE PRACTITIONER 03/03/20 Mendel Shah DPM [address] [place] [address] Consulting Physician PODIATRY/SURGERY 06/27/23 06/26/24 Jyoti Escobar MD 6[address] [place], [place] [phone] INTERVENTIONAL CARDIOLOGY 12/27/23 documented as of this encounter
--- OUTSIDE RECORDS SUMMARY | 2024-04-23 05:14 | XMS_ITS | Encounter Summary ---
Author Organization [facility] Address [address] [place] [address]. 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 [address] [place] [address] Jyoti Escobar MD [address] [place] [phone] documented as of this encounter Visit Diagnoses Not on filedocumented in this encounter Care Teams Water Hydrant Installer Relationship Specialty Start Date End Date Ti Bonilla MD [address] [place] [phone] PCP - General FAMILY PRACTICE 12/03/21 Evaristo Allan MD [place] Cuprous Chloride Helper CARDIOVASCULAR DISEASE 08/19/16 Raul Santana MD CLINICAL CARDIAC ELECTROPHYSIOLOGY 06/16/17 Danny Blackwell MD [address] [place] [address] ORTHOPAEDIC SURGERY 05/01/19 Gayle Arce, BOWLING ALLEY MANAGER, PACKAGE SEALER MACHINE-C [address] [phone] NURSE PRACTITIONER 03/03/20 documented as of this encounter
--- OUTSIDE RECORDS SUMMARY | 2024-04-23 05:14 | XMS_ITS | Encounter Summary ---
Author Organization [facility] Address [address] [place] [address]. [place] [address] [place] [address] Care Team Providers Care Button Facing Machine Operator Name Role Phone Evaristo Allan MD Unavailable Unavailabl Raul Duran MD Unavailable Unavailabl Danny Lopes MD Unavailable [phone] Gayle Arce APRN, FLAT GRINDER OPERATOR-C Unavailable Ti Bonilla MD Primary Care Provider [phone] Mendel Shah DPM Unavailable [phone] Reason for Visit * Reason Onset Date Comments Appointment Request 06/28/2023 Possibly [place] in A-fib Encounter Details Date Type Department Care Team ([facility] st Contact Info) Description 06/28/2023 Telephone [place] [facility] [address] [place] [address] Gayle Arce APRN, FLAT GRINDER OPERATOR-C [address] 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 Not on file [...] st Contact Info) Description 04/25/2024 11:00 AM PSYCHIATRIC ATTENDANT Appointment [facility] [address] [facility] [place] [address] Ti Bonilla MD [address] [place] [phone] 05/23/2024 3:30 PM PSYCHIATRIC ATTENDANT [facility] [address] [place] [phone] Jyoti Escobar MD [address] [place], [place] [address] documented as of this encounter Visit Diagnoses Not on filedocumented in this encounter Care Teams Button Facing Machine Operator Relationship Specialty Start Date End Date Ti Bonilla MD [address] [place] [phone] PCP - General FAMILY PRACTICE 12/03/21 Evaristo Allan MD [place] Metal Bonding Worker CARDIOVASCULAR DISEASE 08/19/16 Raul Santana MD CLINICAL CARDIAC ELECTROPHYSIOLOGY 06/16/17 Danny Blackwell MD 5 [place] [address] ORTHOPAEDIC SURGERY 05/01/19 Gayle Arce APRN, FLAT GRINDER OPERATOR-C 6[address] [facility] [address] [place] [phone] NURSE PRACTITIONER 03/03/20 Mendel Shah DPM [address] [place], [place] [address] [address] Consulting Physician PODIATRY/SURGERY 06/27/23 06/26/24 documented as of this encounter
--- OUTSIDE RECORDS SUMMARY | 2024-04-23 05:14 | XMS_ITS | Encounter Summary ---
Author Organization [facility] Address [address] [place] [address]. [place] [address] [place] [address] Care Team Providers Care Welder Assembler Name Role Phone Evaristo Allan MD Unavailable Unavailabl Raul Duran MD Unavailable Unavailabl Danny Lopes MD Unavailable [phone] Gayle Arce APRN, SOLAR PROCESS ENGINEER-C Unavailable Ti Bonilla MD Primary Care Provider [phone] Mendel Shah DPM Unavailable [phone] Reason for Visit * Reason Onset Date Comments Lab Results 08/12/2023 Encounter Details Date Type Department Care Team ([facility] Contact Info) Description 08/12/2023 Telephone [facility] [address] [place] [address] Gayle Arce APRN, SOLAR PROCESS ENGINEER-C [address] [facility] [address] [place] [address] Lab Results Social History Tobacco [...] 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 Not on file Not [...] st Contact Info) Description 04/25/2024 11:00 AM BUTTON ATTACHING MACHINE OPERATOR Appointment [facility] [address] [facility] [place] [address] Ti Bonilla MD [address] [place] [phone] 05/23/2024 3:30 PM BUTTON ATTACHING MACHINE OPERATOR Office Visit [facility] [address] [place] [address] [place] [phone] Jyoti Escobar MD [address] [place] [address] documented as of this encounter Visit Diagnoses Not on filedocumented in this encounter Care Teams Welder Assembler Relationship Specialty Start Date End Date Ti Bonilla MD [address] [place] [phone] PCP - General FAMILY PRACTICE 12/03/21 Evaristo Allan MD [place] Herb Counselor CARDIOVASCULAR DISEASE 08/19/16 Raul Santana MD CLINICAL CARDIAC ELECTROPHYSIOLOGY 06/16/17 Danny Blackwell MD [address] [place] [address] ORTHOPAEDIC SURGERY 05/01/19 Gayle Arce, RETIREMENT BENEFITS SPECIALIST, SOLAR PROCESS ENGINEER-C [address] [place] [address] [address] [place] [address] NURSE PRACTITIONER 03/03/20 Mendel Shah DPM [address] [place] [address] [place] [address] Consulting Physician PODIATRY/SURGERY 06/27/23 06/26/24 documented as of this encounter
--- OUTSIDE RECORDS SUMMARY | 2024-04-23 05:14 | XMS_ITS | Encounter Summary ---
Author Organization [facility] Address [address] [place] [address]. 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 Not on [...] st Contact Info) Description 04/25/2024 11:00 AM CODING ASSISTANT Appointment [facility] [address] [place] [address] [place] [address] Ti Bonilla MD [address] [place] [phone] 05/23/2024 3:30 PM CODING ASSISTANT Office [facility] [address] [facility] [place] [address] Jyoti Escobar MD [address] [place] [phone] documented as of this encounter Visit Diagnoses Not on filedocumented in this encounter Care Teams Personal Computer Specialist Relationship Specialty Start Date End Date Ti Bonilla MD [address] [place] [phone] PCP - General FAMILY PRACTICE 12/03/21 Evaristo Allan MD [place] Airplane Tester CARDIOVASCULAR DISEASE 08/19/16 Raul Santana MD CLINICAL CARDIAC ELECTROPHYSIOLOGY 06/16/17 Danny Blackwell MD [address] [place] [address] ORTHOPAEDIC SURGERY 05/01/19 Gayle Arce, LINK KNITTING MACHINE OPERATOR, SCOOTER MECHANIC-C [address] [phone] NURSE PRACTITIONER 03/03/20 documented as of this encounter
--- OUTSIDE RECORDS SUMMARY | 2024-04-23 05:14 | XMS_ITS | Encounter Summary ---
Author Organization [facility] Address [address] [place] [address]. 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 file [...] st Contact Info) Description 04/25/2024 11:00 AM LAWYER PROBATE Appointment [facility] [address] [place] [address] [place] [address] Ti Bonilla MD [address] [place] [phone] 05/23/2024 3:30 PM LAWYER PROBATE Office [facility] [place] [facility] [address] [facility] [place] [address] Jyoti Escobar MD [address] [place] [phone] documented as of this encounter Visit Diagnoses Not on filedocumented in this encounter Care Teams Nursing Program Manager Relationship Specialty Start Date End Date Ti Bonilla MD [address] [place] [phone] PCP - General FAMILY PRACTICE 12/03/21 Evaristo Allan MD [place] Lingo Cleaner CARDIOVASCULAR DISEASE 08/19/16 Raul Santana MD CLINICAL CARDIAC ELECTROPHYSIOLOGY 06/16/17 Danny Blackwell MD 725 [place] [address] ORTHOPAEDIC SURGERY 05/01/19 Gayle Arce, LENDING MANAGER, MANUFACTURING ENGINEERING MANAGER-C [address] [phone] NURSE PRACTITIONER 03/03/20 documented as of this encounter
--- OUTSIDE RECORDS SUMMARY | 2024-04-23 05:14 | XMS_ITS | Encounter Summary ---
Author Organization [facility] Address [address] [place] [address]. [place] [address] [place] [address] Care Team Providers Care Assistant Laboratory Director Name Role Phone Evaristo Allan MD Unavailable Unavailabl Raul Duran MD Unavailable Unavailabl e Danny Blackwell MD Unavailable [phone] Gayle Arce APRN, AUTOMATION TESTER-C Unavailable [phone] Ti Bonilla MD Primary Care Provider Mendel Shah DPM Unavailable [phone] Reason for Visit * Reason Comments Echo (SCAN) Encounter Details Date Type Department Care Team (Late st Contact Info) Description 02/24/2023 Scan [facility] [address] [place] [address] Scanned, Doc Pccl Echo (SCAN) [...] st Contact Info) Description 04/25/2024 11:00 AM CHEMISTRY DEPARTMENT CHAIR Appointment [facility] [address] [facility] [place] [address] Ti Bonilla MD [address] [place] [phone] 05/23/2024 3:30 PM CHEMISTRY DEPARTMENT CHAIR Office [facility] [address] [place] [address] Jyoti Escobar MD [address] [place] [address] documented as of this encounter Procedures Procedure Name Priority Date/Time Associated Diagnosis Comments ECHO GENERIC (SCAN ORDER) Routine 02/24/2023 documented in this encounter Results * ECHO (02/24/2023) Anatomical Region Laterality Modality Other us Doc Pccl Scanned SCANNING Final Result documented in this encounter Visit Diagnoses Not on filedocumented in this encounter Care Teams Assistant Laboratory Director Relationship Specialty Start Date End Date Ti Bonilla MD [address] [place] [address] PCP - General FAMILY PRACTICE 12/03/21 Evaristo Allan MD [place] Picker Box Operator CARDIOVASCULAR DISEASE 08/19/16 Raul Santana MD CLINICAL CARDIAC ELECTROPHYSIOLOGY 06/16/17 Danny Blackwell MD 5 [place] [address] ORTHOPAEDIC SURGERY 05/01/19 Gayle Arce APRN, AUTOMATION TESTER-C 619 [facility] 47 [place] [address] NURSE PRACTITIONER 03/03/20 Mendel Shah DPM [address] [facility] [place] [address] Consulting Physician PODIATRY/SURGERY 06/27/23 06/26/24 documented as of this encounter
--- OUTSIDE RECORDS SUMMARY | 2024-04-23 05:14 | XMS_ITS | Encounter Summary ---
Author Organization [facility] Address [address] [place] [address]. [place], [place] [address] [place] [address] Care Team Providers Care Compliance Intern Name Role Phone Evaristo Allan MD Unavailable Unavailabl Raul Duran MD Unavailable Unavailabl e Danny Blackwell MD Unavailable [phone] Gayle Arce APRN, VISUAL MERCHANDISE MANAGER-C Unavailable [phone] Ti Bonilla MD Primary Care Provider [phone] Mendel Shah DPM Unavailable [phone] Reason for Referral * Consultation (Routine) - Pending Review Specialty Diagnoses / Procedures Referred By Charito ledbetter Referred To Contact PODIATRY/SURGERY Diagnoses 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, limited to breakdown of skin ([facility]) Procedures OFFICE/OUTPATIENT NEW LOW MDM 30-44 MINUTES OFFICE/OUTPT VISIT,NEW,LEVL IV OFFICE/OUTPT VISIT,NEW,LEVL V OFFICE/OUTPT VISIT,EST,LEVL III OFFICE/OUTPT VISIT,EST,LEVL IV OFFICE/OUTPT VISIT,EST,LEVL V Olivia Pearson FNP [address] [place] [address] Phone: tel: fax: Mendel Shah, DPM [address] [place] [address] Phone: tel: fax: Referral ID Status Reason Start Date Expiration Date Visits Requested Visits Authorized [id number] Pending Review Specialty Services 06/27/2023 06/26/2024 1 1 Encounter Details Date Type Department Care Team (Late st Contact Info) Description 06/27/2023 10:00 AM CDT - 06/27/2023 11:24 AM CDT Hospital Encounter 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 [place] [address] Ti Bonilla MD [address] [place] [phone] 05/23/2024 3:30 PM TAP DANCER Office Visit [facility] [address] [place] [phone] Jyoti Escobar MD [address] [place] [address] Scheduled Referrals Name Type Priority Associated Diagnoses Orde r Schedule Ambulatory referral to Podiatry Referral Routine 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, limited to breakdown of skin ([facility]) Ordered: 06/27/2023 documented as of this encounter Visit Diagnoses Diagnosis 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, limited to breakdown of skin ([facility])- Primary documented in this encounter Care Teams Compliance Intern Relationship Specialty Start Date End Date Ti Bonilla MD [address] [place] [phone] PCP - General FAMILY PRACTICE 12/03/21 Evaristo Allan MD [place] Fitter'S Assistant CARDIOVASCULAR DISEASE 08/19/16 Raul Santana MD CLINICAL CARDIAC ELECTROPHYSIOLOGY 06/16/17 Danny Blackwell MD 5 [place] [address] ORTHOPAEDIC SURGERY 05/01/19 Gayle Arce APRN, VISUAL MERCHANDISE MANAGER-C 619 [facility] [address] [place] [address] NURSE PRACTITIONER 03/03/20 Mendel Shah DPM [address] [place] [address] [place] [address] Consulting Physician PODIATRY/SURGERY 06/27/23 06/26/24 documented as of this encounter
--- OUTSIDE RECORDS SUMMARY | 2024-04-23 05:14 | XMS_ITS | Encounter Summary ---
Author Organization [facility] Address [address] [place] [address]. 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 Not on [...] Contact Info) Description 04/25/2024 11:00 AM WEB DEVELOPER Appointment [facility] [address] [place] [address] [place] [address] Ti Bonilla MD [address] [place] [phone] 05/23/2024 3:30 PM WEB DEVELOPER [facility] [address] [facility] [place] [address] Jyoti Escobar MD [address] [place] [address] documented as of this encounter Visit Diagnoses Not on filedocumented in this encounter Care Teams Peanut Separator Relationship Specialty Start Date End Date Ti Bonilla MD [address] [place] [phone] PCP - General FAMILY PRACTICE 12/03/[address] [place] Triple Valve Tester CARDIOVASCULAR DISEASE 08/19/16 Raul Santana MD CLINICAL CARDIAC ELECTROPHYSIOLOGY 06/16/17 Danny Blackwell MD [address] [place] [address] ORTHOPAEDIC SURGERY 05/01/19 Gayle Arce, BANK APPRAISER, ECHOCARDIOGRAPHY TECHNOLOGIST-C [address] [phone] NURSE PRACTITIONER 03/03/20 documented as of this encounter
--- OUTSIDE RECORDS SUMMARY | 2024-04-23 05:14 | XMS_ITS | Encounter Summary ---
Author Organization [facility] Address [address] [place] [address]. [place] [address] [place] [address] Care Team Providers Care Therapeutic Recreation Leader Name Role Phone Evaristo Allan MD Unavailable Unavailabl Raul Duran MD Unavailable Unavailabl e Danny Blackwell MD Unavailable [phone] Gayle Arce APRN, COURT MESSENGER-C Unavailable Ti Bonilla MD Primary Care Provider Mendel Shah DPM Unavailable [phone] Reason for Visit * Reason Comments ECG (SCAN) Lab (SCAN) Encounter Details Date Type Department Care Team (Late st Contact Info) Description 06/24/2023 Scan [facility] d [address] [place] [phone] Scanned, Doc Pccl ECG (SCAN); Lab (SCAN) [...] st Contact Info) Description 04/25/2024 11:00 AM [address]ONE ENGINEER [address] [facility] [address] [place] [address] Ti Bonilla MD [address] [place] [phone] 05/23/2024 3:30 PM PHONE ENGINEER Office Visit [facility] [address] [place] [phone] Jyoti Escobar MD [address] [place] [address] documented as of this encounter Procedures Procedure Name Priority Date/Time Associated Diagnosis Comments ECG GENERIC (SCAN ORDER) Routine 06/24/2023 12:00 AM PHONE ENGINEER OUTSIDE LAB (SCAN ORDER) Routine 06/24/2023 12:00 AM PHONE ENGINEER documented in this encounter Results * OUTSIDE LAB (06/24/2023 12:00 AM PHONE ENGINEER) 06/24/2023 us Doc Pccl Scanned SCANNING Final Result Performing Organization Address City/[facility]/ZIP Co de Phone Number HS ONBASE * ECG (06/24/2023 12:00 AM PHONE ENGINEER) 06/24/2023 us Doc Pccl Scanned SCANNING Final Result Performing Organization Address City/[facility]/ZIP Co de Phone Number HS ONBASE documented in this encounter Visit Diagnoses Not on filedocumented in this encounter Care Teams Therapeutic Recreation Leader Relationship Specialty Start Date End Date Ti Bonilla MD [address] [place] [phone] PCP - General FAMILY PRACTICE 12/03/21 Evaristo Allan MD [facility] Science Instructor CARDIOVASCULAR DISEASE 08/19/16 Raul Santana MD CLINICAL CARDIAC ELECTROPHYSIOLOGY 06/16/17 Danny Blackwell MD [address] [place], [place] [phone] ORTHOPAEDIC SURGERY 05/01/19 Gayle Arce APRN, COURT MESSENGER-C 6[address] [facility] [place] [address] [place] [phone] NURSE PRACTITIONER 03/03/20 Mendel Shah DPM [facility]5 [place] [address] Consulting Physician PODIATRY/SURGERY 06/27/23 06/26/24 documented as of this encounter
--- OUTSIDE RECORDS SUMMARY | 2024-04-23 05:14 | XMS_ITS | Encounter Summary ---
Author Organization [facility] Address [address] [place] [address]. [place], [place] [address] [place] [address] Care Team Providers Care Wharf Tender Head Name Role Phone Evaristo Allan MD Unavailable Unavailabl Raul Duran MD Unavailable Unavailabl Danny Lopes MD Unavailable [phone] Gayle Arce APRN, RN CHARGE-C Unavailable [phone] Ti Bonilla MD Primary Care Provider Mendel Shah DPM Unavailable [phone] Encounter Details Date Type Department Care Team [...] st Contact Info) Description 04/25/2024 11:00 AM SOFTWARE QUALITY ENGINEER Appointment [facility] [address] [place] [address] [place] [address] Ti Bonilla MD [address] [place] [phone] 05/23/2024 3:30 PM SOFTWARE QUALITY ENGINEER Office Visit [facility] [address] [facility] [place] [phone] Jyoti Escobar MD [address] [place] [address] documented as of this encounter Visit Diagnoses Not on filedocumented in this encounter Care Teams Wharf Tender Head Relationship Specialty Start Date End Date Ti Bonilla MD [address] [place] [phone] PCP - General FAMILY PRACTICE 12/03/21 Evaristo Allan MD [place] Ladle Handler CARDIOVASCULAR DISEASE 08/19/16 Raul Santana MD CLINICAL CARDIAC ELECTROPHYSIOLOGY 06/16/17 Danny Blackwell MD 725 [place] [address] ORTHOPAEDIC SURGERY 05/01/19 Gayle Arce, POSTMASTER, RN CHARGE-C 619 [facility] [address] [place] [address] NURSE PRACTITIONER 03/03/20 Mendel Shah DPM [address] [place] [address] Consulting Physician PODIATRY/SURGERY 06/27/23 06/26/24 documented as of this encounter
--- OUTSIDE RECORDS SUMMARY | 2024-04-23 05:14 | XMS_ITS | Encounter Summary ---
Author Organization [facility] Address [address] [place] [address]. [place], [place] [address] [place] [address] Care Team Providers Care Senior Associate Name Role Phone Evaristo Allan MD Unavailable Unavailabl Raul Duran MD Unavailable Unavailabl Danny Lopes MD Unavailable [phone] Gayle Arce APRN, CARPET INSPECTOR-C Unavailable [phone] Ti Bonilla MD Primary Care Provider Mendel Shah DPM Unavailable [phone] Encounter Details Date Type Department Care Team (Late st Contact Info) Description 07/11/2023 9:44 AM CDT - 07/11/2023 11:59 PM CDT Hospital Encounter [facility] [address] [place] [address] Olivia Pearson, SUPERVISOR GREEN END DEPARTMENT [address] [place] [address] Discharge Disposition: Home or Self [...] 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 [...] st Contact Info) Description 04/25/2024 11:00 AM PLANT BREEDER SCIENTIST Appointment [facility] [address] [place] [address] Ti Bonilla MD [address] [place] [phone] 05/23/2024 3:30 PM PLANT BREEDER SCIENTIST Office Visit [place] [facility] [address] [place] [phone] Jyoti Escobar MD [address] [place], [place] [phone] documented as of this encounter Visit Diagnoses Not on filedocumented in this encounter Care Teams Senior Associate Relationship Specialty Start Date End Date Ti Bonilla MD [address] [place] [phone] PCP - General FAMILY PRACTICE 12/03/21 Evaristo Allan MD [place] Tag And Label Cutter CARDIOVASCULAR DISEASE 08/19/16 Raul Santana MD CLINICAL CARDIAC ELECTROPHYSIOLOGY 06/16/17 Danny Blackwell MD 5 [place] [address] ORTHOPAEDIC SURGERY 05/01/19 Gayle Arce APRN, CARPET INSPECTOR-C 619 [facility] [address] [place] [phone] NURSE PRACTITIONER 03/03/20 Mendel Shah DPM [facility] [facility] [place] [address] Consulting Physician PODIATRY/SURGERY 06/27/23 06/26/24 documented as of this encounter
--- OUTSIDE RECORDS SUMMARY | 2024-04-23 05:14 | XMS_ITS | Encounter Summary ---
Author Organization [facility] Address [address] [place] [address]. [place], [place] [address] [place] [address] Care Team Providers Care Pressure Control Supervisor Name Role Phone Evaristo Allan MD Unavailable Unavailabl Raul Duran MD Unavailable Unavailabl Danny Lopes MD Unavailable [phone] Gayle Arce APRN SEPHORA OPERATIONS CONSULTANT-C Unavailable Ti Zamora MD Primary Care Provider Mendel Shah DPSallie Unavailable [phone] Reason for Visit * Reason Comments Atrial Fibrillation Atrial Flutter Breathing Problem CHF Follow Up Irregular Heart Beat Hypertension Encounter Details Date Type Department Care Team (Late st Contact Info) Description 06/30/2023 9:50 AM CDT Office Visit [facility] [address] [place] [address] Alfredo Gonsales, PA-C [address] [place] [address] Atrial Fibrillation; Atrial Flutter; Breathing [...] 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 He was in [place] in February 2023 and admitted to hospital in [place], [place]. He was diuresed and they senthim home. Since being back in [facility], he has progressively gotten more short of [...] the day of the encounter. 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 [address] [facility] [address] Ti Zamora MD [address] [place] [phone] 05/23/2024 3:30 PM QUALITY ENG Office Visit [facility] [address] [place] [address] [place] [phone] Jyoti Escobar MD [address] [place] [address] documented as of this encounter Visit Diagnoses Diagnosis Atypical atrial flutter (CMS/HCC [facility]/HCC)- Primary Atrial flutter documented in this encounter Care Teams Pressure Control Supervisor Relationship Specialty Start Date End Date Ti Zamora MD [address] [place] [phone] PCP - General FAMILY PRACTICE 12/03/21 Evaristo Allan MD [place] Experimental Mechanic CARDIOVASCULAR DISEASE 08/19/16 Raul Santana MD CLINICAL CARDIAC ELECTROPHYSIOLOGY 06/16/17 Danny Blackwell MD [address] [place] [address] ORTHOPAEDIC SURGERY 05/01/19 Gayle Arce APRN, SEPHORA OPERATIONS CONSULTANT-C 9 [facility] [address] [place] [address] NURSE PRACTITIONER 03/03/20 Mendel Shah DPM [address] [place] [address] [place] [address] Consulting Physician PODIATRY/SURGERY 06/27/23 06/26/24 documented as of this encounter
--- OUTSIDE RECORDS SUMMARY | 2024-04-23 05:14 | XMS_ITS | Encounter Summary ---
Author Organization [facility] Address [address] [place] [address]. [place] [address] [place] [address] Care Team Providers Care Packaging Engineer Name Role Phone Evaristo Allan MD Unavailable Unavailabl Raul Duran MD Unavailable Unavailabl Danny Lopes MD Unavailable [phone] Gayle Arce APRN, CARE CONSULTANT-C Unavailable Ti Bonilla MD Primary Care Provider [phone] Mendel Shah DPSallie Unavailable [phone] Reason for Visit * Reason Onset Date Comments Appointment Reminder 07/05/2023 Encounter Details Date Type Department Care Team ([facility] Contact Info) Description 07/05/2023 Telephone [facility] [address] [place] [address] Alfredo Gonsales, PA-C [address] [place] [address] Appointment Reminder Social History Tobacco [...] 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 Please arrive him. documented in this encounter Plan of Treatment Upcoming Encounters Date Type Department Care Team (Late st Contact Info) Description 04/25/2024 11:00 AM INSPECTION CLERK Appointment [facility] [address] [place] [address] Ti Bonilla MD [address] [place] [phone] 05/23/2024 3:30 PM INSPECTION CLERK Office Visit [facility] [address] [place] [phone] Jyoti Escobar MD [address] [place], [place] [address] documented as of this encounter Visit Diagnoses Not on filedocumented in this encounter Care Teams Packaging Engineer Relationship Specialty Start Date End Date Ti Bonilla MD [address] [place] [phone] PCP - General FAMILY PRACTICE 12/03/21 Evaristo Allan MD [place] Facilities Supervisor CARDIOVASCULAR DISEASE 08/19/16 Raul Santana MD CLINICAL CARDIAC ELECTROPHYSIOLOGY 06/16/17 Danny Blackwell MD 725 [place] [address] ORTHOPAEDIC SURGERY 05/01/19 Gayle Arce APRN, CARE CONSULTANT-C 619 [facility] [address] [place] [phone] NURSE PRACTITIONER 03/03/20 Mendel Shah DPM [address] [place] [address] [place] [address] Consulting Physician PODIATRY/SURGERY 06/27/23 06/26/24 documented as of this encounter
--- OUTSIDE RECORDS SUMMARY | 2024-04-23 05:14 | XMS_ITS | Encounter Summary ---
Author Organization [facility] Address [address] [place] [address]. [place], [place] [address] [place] [address] Care Team Providers Care Waffle Machine Operator Name Role Phone Evaristo Allan MD Unavailable Unavailabl Raul Duran MD Unavailable Unavailabl Danny Lopes MD Unavailable [phone] Gayle Arce APRN, MECHANICAL INTEGRITY SPECIALIST-C Unavailable Ti Bonilla MD Primary Care Provider Mendel Shah DPM Unavailable [phone] Encounter Details Date Type Department Care Team [...] st Contact Info) Description 04/25/2024 11:00 AM BULL CHAIN OPERATOR Appointment [facility] [address] [place] [address] [place] [address] Ti Bonilla MD [address] [place] [phone] 05/23/2024 3:30 PM BULL CHAIN OPERATOR Office Visit [facility] [address] [place] [phone] Jyoti Escobar MD [address] [place] [address] documented as of this encounter Visit Diagnoses Not on filedocumented in this encounter Care Teams Waffle Machine Operator Relationship Specialty Start Date End Date Ti Bonilla MD [address] [place] [phone] PCP - General FAMILY PRACTICE 12/03/21 Evaristo Allan MD [place] Lumber Scaler CARDIOVASCULAR DISEASE 08/19/16 Raul Santana MD CLINICAL CARDIAC ELECTROPHYSIOLOGY 06/16/17 Danny Blackwell MD [address] [place] [address] ORTHOPAEDIC SURGERY 05/01/19 Gayle Arce, SERVICE ORDER DISPATCHER, MECHANICAL INTEGRITY SPECIALIST-C 619 [facility] [address] [place] [address] NURSE PRACTITIONER 03/03/20 Mendel Shah DPM 1215 [place] [address] Consulting Physician PODIATRY/SURGERY 06/27/23 06/26/24 documented as of this encounter
--- OUTSIDE RECORDS SUMMARY | 2024-04-23 05:14 | XMS_ITS | Encounter Summary ---
Author Organization [facility] Address [address] [place] [address]. [place], [place] [address] [place] [address] Care Team Providers Care Metal Hanger Name Role Phone Evaristo Allan MD Unavailable Unavailabl Raul Duran MD Unavailable Unavailabl Danny Lopes MD Unavailable [phone] Gayle Arce APRN, WAREHOUSER-C Unavailable Ti Bonilla MD Primary Care Provider Encounter Details Date Type Department Care Team (Late st Contact Info) Description 01/26/2023 9:30 AM CDT - 01/26/2023 11:59 PM CDT Hospital Encounter [facility] [address] [place] [address] Olivia Pearson, BOARD CERTIFIED ARTS THERAPIST [address] [place] [phone] Discharge Disposition: Home or Self Care (Routine [...] 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 [address] [place] [address] Ti Bonilla MD [address] [place] [phone] 05/23/2024 3:30 PM SUPERVISOR GRINDING Office Visit [facility] [address] [place] [phone] Jyoti Escobar MD [address] [place] [address] documented as of this encounter Visit Diagnoses [...] CDT documented in this encounter Care Teams Metal Hanger Relationship Specialty Start Date End Date Ti Bonilla MD [address] [place] [phone] PCP - General FAMILY PRACTICE 12/03/21 Evaristo Allan MD [place] Gate Watchman CARDIOVASCULAR DISEASE 08/19/16 Raul Santana MD CLINICAL CARDIAC ELECTROPHYSIOLOGY 06/16/17 Danny Blackwell MD 5 [place] [address] ORTHOPAEDIC SURGERY 05/01/19 Gayle Arce APRN, WAREHOUSER-C [address] [place] [address] [address] [place] [address] NURSE PRACTITIONER 03/03/20 documented as of this encounter
--- OUTSIDE RECORDS SUMMARY | 2024-04-23 05:14 | XMS_ITS | Encounter Summary ---
Author Organization [facility] Address [address] [place] [address]. 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 [...] st Contact Info) Description 04/25/2024 11:00 AM LEGAL AIDE Appointment [facility] [address] [place] [address] [place] [address] Ti Bonilla MD [address] [place] [phone] 05/23/2024 3:30 PM LEGAL AIDE [facility] [address] [facility] [place] [address] Jyoti Escobar MD [address] [place] [address] [phone] documented as of this encounter Visit Diagnoses Not on filedocumented in this encounter Care Teams Loan Processing Supervisor Relationship Specialty Start Date End Date Ti Bonilla MD [address] [place] [phone] PCP - General FAMILY PRACTICE 12/03/21 Evaristo Allan MD [place] Asphalt Mixing Machine Operator CARDIOVASCULAR DISEASE 08/19/16 Raul Santana MD CLINICAL CARDIAC ELECTROPHYSIOLOGY 06/16/17 Danny Blackwell MD [address] [place] [address] ORTHOPAEDIC SURGERY 05/01/19 Gayle Arce, THERMOSTAT MAKER, CULTURE MEDIA LABORATORY ASSISTANT-C [address] [phone] NURSE PRACTITIONER 03/03/20 documented as of this encounter
--- OUTSIDE RECORDS SUMMARY | 2024-04-23 05:14 | XMS_ITS | Encounter Summary ---
Author Organization [facility] Address [address] [place] [address]. [place], [place] [address] [place] [address] Care Team Providers Care Liturgical Music Director Name Role Phone Evaristo Allan MD Unavailable Unavailabl Raul Duran MD Unavailable Unavailabl Danny Lopes MD Unavailable [phone] Gayle Arce APRN, LOCK TENDER CHIEF OPERATOR-C Unavailable Ti Bonilla MD Primary Care Provider Encounter Details Date Type Department Care Team (Late st Contact Info) Description 01/07/2023 1:16 PM CDT - 01/07/2023 11:59 PM CDT Hospital Encounter [facility] [address] [place] [address] Olivia Pearson, EXTERNAL GRINDER [address] [place] [phone] Discharge Disposition: Home or Self Care (Routine [...] 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 [address] [place] [address] Ti Bonilla MD [address] [place] [phone] 05/23/2024 3:30 PM BUSINESS INFORMATION CONSULTANT Office Visit [facility] [address] [place] [phone] Jyoti Escobar MD [address] [place] [address] documented as of this encounter Visit Diagnoses [...] CDT documented in this encounter Care Teams Liturgical Music Director Relationship Specialty Start Date End Date Ti Bonilla MD [address] [place] [phone] PCP - General FAMILY PRACTICE 12/03/21 Evaristo Allan MD [place] Cad Technician CARDIOVASCULAR DISEASE 08/19/16 Raul Santana MD CLINICAL CARDIAC ELECTROPHYSIOLOGY 06/16/17 Danny Blackwell MD 5 [place] [address] ORTHOPAEDIC SURGERY 05/01/19 Gayle Arce APRN, LOCK TENDER CHIEF OPERATOR-C [address] [place] [address] [address] [place] [address] NURSE PRACTITIONER 03/03/20 documented as of this encounter
--- OUTSIDE RECORDS SUMMARY | 2024-04-23 05:14 | XMS_ITS | Encounter Summary ---
Author Organization [facility] Address [address] [place] [address]. [place], [place] [address] [place] [address] Care Team Providers Care Supervisor Aluminum Boat Assembly Name Role Phone Evaristo Allan MD Unavailable Unavailabl Raul Duran MD Unavailable Unavailabl Danny Lopes MD Unavailable [phone] Gayle Arce APRN, WELLNESS HEALTH COACH-C Unavailable Ti Bonilla MD Primary Care Provider Encounter Details Date Type Department Care Team (Late st Contact Info) Description 12/14/2022 11:00 AM CDT - 12/14/2022 11:59 PM CDT Hospital Encounter [facility] [address] [place] [address] Olivia Pearson, CORRECTION OFFICER [facility] [address] [place] [phone] Discharge Disposition: Home or Self Care (Routine [...] of this encounter Progress Notes * Ambreen Alonos MD - 12/14/2022 11:00 AM CDT Additional documentation from 12/12/22-12/28/22 may be found under the media tab. TRIC MOTOR CONTROL ASSEMBLER * Ambreen Alonso MD - 12/14/2022 11:00 AM CDT Additional documentation from 12/12/22-12/28/22 may be found under the media tab. TRIC MOTOR CONTROL ASSEMBLER * Destini Martinez RN - 12/14/2022 11:00 AM CDTEncounter addended by: Destini Martinez RN on: 02/11/2023 8:41 AM Actions taken: MAR administration accepted documented in this encounter Plan of Treatment Upcoming Encounters Date Type Department Care Team (Late st Contact Info) Description 04/25/2024 11:00 AM ELECTRIC MOTOR CONTROL ASSEMBLER Appointment [facility] [address] [place] [address] [place] [address] Ti Bonilla MD [address] [place] [phone] 05/23/2024 3:30 PM ELECTRIC MOTOR CONTROL ASSEMBLER Office Visit [facility] [place] [phone] Jyoti Escobar MD [address] [place] [address] documented as of this encounter Visit [...] CDT documented in this encounter Care Teams Supervisor Aluminum Boat Assembly Relationship Specialty Start Date End Date Ti Bonilla MD [address] [place] [phone] PCP - General FAMILY PRACTICE 12/03/21 Evaristo Allan MD [place] Preparation Room Manager CARDIOVASCULAR DISEASE 08/19/16 Raul Santana MD CLINICAL CARDIAC ELECTROPHYSIOLOGY 06/16/17 Danny Blackwell MD 5 [place] [address] ORTHOPAEDIC SURGERY 05/01/19 Gayle Arce, BARBARA, WELLNESS HEALTH COACH-C [address] [facility] [address] [place] [phone] NURSE PRACTITIONER 03/03/20 documented as of this encounter
--- OUTSIDE RECORDS SUMMARY | 2024-04-23 05:14 | XMS_ITS | Encounter Summary ---
Author Organization [facility] Address [address] [place] [address]. 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 [facility] [place] [phone] Jyoti Escobar MD [address] [place] [address] documented as of this encounter Visit Diagnoses Not on filedocumented in this encounter Care Teams Stock Repairer Relationship Specialty Start Date End Date Ti Bonilla MD [address] [place] [phone] PCP - General FAMILY PRACTICE 12/03/21 Evaristo Allan MD [place] Printer Apprentice CARDIOVASCULAR DISEASE 08/19/16 Raul Santana MD CLINICAL CARDIAC ELECTROPHYSIOLOGY 06/16/17 Danny Blackwell MD [address] [place] [address] ORTHOPAEDIC SURGERY 05/01/19 Gayle Arce, QUALITY CONTROL INDUSTRIAL ENGINEER, STAB SETTER AND DRILLER-C 619 [facility] [address] [place] [address] NURSE PRACTITIONER 03/03/20 Mendel Shah DPM [address]15 [place] [address] Consulting Physician PODIATRY/SURGERY 06/27/23 06/26/24 documented as of this encounter
--- OUTSIDE RECORDS SUMMARY | 2024-04-23 05:14 | XMS_ITS | Encounter Summary ---
Author Organization [facility] Address [address] [place] [address]. [place], [place] [address] [place] [address] Care Team Providers Care Bath Design Sales Consultant Name Role Phone Evaristo Allan MD Unavailable Unavailabl Raul Duran MD Unavailable Unavailabl Danny Lopes MD Unavailable [phone] Gayle Arce APRN, MANAGER DIGITAL AD OPERATIONS-C Unavailable Ti Bonilla MD Primary Care Provider [phone] Encounter Details Date Type Department Care Team (Late st Contact Info) Description 01/18/2023 11:00 AM CDT - 01/18/2023 11:59 PM CDT Hospital Encounter [facility] [address] [place] [address] Olivia Pearson, JD EDWARDS DEVELOPER [address] [place] [phone] Discharge Disposition: Home or Self Care (Routine [...] 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 [address] [place] [address] [place] [address] Ti Bonilla MD [address] [place] [phone] 05/23/2024 3:30 PM INSURANCE CODER Office Visit [facility] [address] [facility] [place] [address] Jyoti Escobar MD [address] [place] [address] documented as of this encounter Visit Diagnoses Not on filedocumented in this encounter Care Teams Bath Design Sales Consultant Relationship Specialty Start Date End Date Ti Bonilla MD [address] [place], [place] [phone] PCP - General FAMILY PRACTICE 12/03/21 Evaristo Allan MD Helper Tile Sorter CARDIOVASCULAR DISEASE 08/19/16 Raul Santana MD CLINICAL CARDIAC ELECTROPHYSIOLOGY 06/16/17 Danny Blackwell MD 5 [place] [address] ORTHOPAEDIC SURGERY 05/01/19 Gayle Arce, FIELD CROP GROWER, MANAGER DIGITAL AD OPERATIONS-C 619 [facility] [address] [place] [address] NURSE PRACTITIONER 03/03/20 documented as of this encounter
--- OUTSIDE RECORDS SUMMARY | 2024-04-23 05:14 | XMS_ITS | Encounter Summary ---
Author Organization [facility] Address [address] [place] [address]. [place], [place] [address] [place] [address] Care Team Providers Care Lieutenant Ballistics Name Role Phone Evaristo Allan MD Unavailable Unavailabl Raul Duran MD Unavailable Unavailabl Danny Lopes MD Unavailable [phone] Gayle Arce APRN, FLOOR SERVICE WORKER SPRING-C Unavailable Ti Bonilla MD Primary Care Provider [phone] Encounter Details Date Type Department Care Team (Late st Contact Info) Description 12/22/2022 11:00 AM CDT - 12/22/2022 11:59 PM CDT Hospital Encounter [facility] [address] [place] [address] Olivia Pearson, PARAFFIN PLANT SWEATER OPERATOR [address] [place] [phone] Discharge Disposition: Home or Self Care (Routine [...] 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 TE HUNTER * Ambreen Alonso MD - 12/22/2022 11:00 AM CDT Additional documentation from 12/12/22-12/28/22 may be found under the media tab. TE HUNTER * Ashley Schaeffer RN - 12/22/2022 11:00 AM CDTEncounter addended by: Ashley Schaeffer RN on: 02/11/2023 9:51 AM Actions taken: MAR administration accepted documented in this encounter Plan of Treatment Upcoming Encounters Date Type Department Care Team (Late st Contact Info) Description 04/25/2024 11:00 AM COYOTE HUNTER Appointment [facility] [address] [place] [address] [place] [address] Ti Bonilla MD [address] [place] [phone] 05/23/2024 3:30 PM COYOTE HUNTER Office Visit [facility] [place] [phone] Jyoti Escobar MD [address] [place] [address] documented as of this encounter Visit Diagnoses Not on filedocumented in this encounter Administered Medications Inactive Administered Medications - up to 3 most recent administrations Medication Order MAR Action Action Date Dose Rate Site lidocaine 2 % URO-JET jelly Topical, Once, 1 dose, On Tue12/22/22 at 0000 Given During Downtime 12/23/2022 11:50 AM CDT documented in this encounter Care Teams Lieutenant Ballistics Relationship Specialty Start Date End Date Ti Bonilla MD [address] [place] [phone] PCP - General FAMILY PRACTICE 12/03/21 Evaristo Allan MD [place] Medical Charge Entry Specialist CARDIOVASCULAR DISEASE 08/19/16 Raul Santana MD CLINICAL CARDIAC ELECTROPHYSIOLOGY 06/16/17 Danny Blackwell MD [address] [place] [address] ORTHOPAEDIC SURGERY 05/01/19 Gayle Arce APRN, FLOOR SERVICE WORKER SPRING-C 619 [facility] [address]P57 [place] [phone] NURSE PRACTITIONER 03/03/20 documented as of this encounter
--- OUTSIDE RECORDS SUMMARY | 2024-04-23 05:14 | XMS_ITS | Encounter Summary ---
Author Organization [facility] Address [address] [place] [address]. [place], [place] [address] [place] [address] Care Team Providers Care Catering Service Manager Name Role Phone Evaristo Allan MD Unavailable Unavailabl Raul Duran MD Unavailable Unavailabl Danny Lopes MD Unavailable [phone] Gayle Arce APRN, TABLE GAMES DUAL RATE SUPERVISOR-C Unavailable Ti Bonilla MD Primary Care Provider Mendel Shah DPM Unavailable [phone] Encounter Details Date Type Department Care Team [...] st Contact Info) Description 04/25/2024 11:00 AM LIVESTOCK SALES REPRESENTATIVE Appointment [facility] [address] [place] [address] [place] [address] Ti Bonilla MD [address] [place] [phone] 05/23/2024 3:30 PM LIVESTOCK SALES REPRESENTATIVE Office Visit [facility] [address] [facility] [place] [phone] Jyoti Escobar MD [address] [place] [address] documented as of this encounter Visit Diagnoses Not on filedocumented in this encounter Care Teams Catering Service Manager Relationship Specialty Start Date End Date Ti Bonilla MD [address] [place] [phone] PCP - General FAMILY PRACTICE 12/03/21 Evaristo Allan MD [place] Microstrategy Reports Developer CARDIOVASCULAR DISEASE 08/19/16 Raul Santana MD CLINICAL CARDIAC ELECTROPHYSIOLOGY 06/16/17 Danny Blackwell MD [address]25 [place] [address] ORTHOPAEDIC SURGERY 05/01/19 Gayle Arce, SPRINKLER DRIVER, TABLE GAMES DUAL RATE SUPERVISOR-C 619 [facility] [address] [place] [address] NURSE PRACTITIONER 03/03/20 Mendel Shah DPM 1215 [place] [address] Consulting Physician PODIATRY/SURGERY 06/27/23 06/26/24 documented as of this encounter
--- OUTSIDE RECORDS SUMMARY | 2024-04-23 05:14 | XMS_ITS | Encounter Summary ---
Author Organization [facility] Address [address] [place] [address]. [place], [place] [address] [place] [address] Care Team Providers Care Materials Manager Name Role Phone Evaristo Allan MD Unavailable Unavailabl Raul Duran MD Unavailable Unavailabl Danny Lopes MD Unavailable [phone] Gayle Arce APRN, MANAGER EMS-C Unavailable Ti Bonilla MD Primary Care Provider Encounter Details Date Type Department Care Team (Late st Contact Info) Description 11/19/2022 11:16 AM CDT - 11/19/2022 11:59 PM CDT Hospital Encounter [facility] [address] [place] [address] Olivia Pearson, WOODS OVERSEER [address] [place] [phone] Discharge Disposition: Home or Self Care (Routine [...] st Contact Info) Description 04/25/2024 11:00 AM ADJUNCT FACULTY Appointment [facility] [address] [place] [address] [place] [address] Ti Bonilla MD [address] [place] [phone] 05/23/2024 3:30 PM ADJUNCT FACULTY Office Visit [facility] [address] [facility] [place] [address] Jyoti Escobar MD [address] [place] [address] documented as of this encounter Visit Diagnoses Not on filedocumented in this encounter Care Teams Materials Manager Relationship Specialty Start Date End Date Ti Bonilla MD [address] [place], [place] [phone] PCP - General FAMILY PRACTICE 12/03/21 Evaristo Allan MD [place] Mixer Driver CARDIOVASCULAR DISEASE 08/19/16 Raul Santana MD CLINICAL CARDIAC ELECTROPHYSIOLOGY 06/16/17 Danny Blackwell MD 5 [place] [address] ORTHOPAEDIC SURGERY 05/01/19 Gayle Arce, EXTENSION WORK DIRECTOR, MANAGER EMS-C 619 [facility] [address] [place] [address] NURSE PRACTITIONER 03/03/20 documented as of this encounter
--- OUTSIDE RECORDS SUMMARY | 2024-04-23 05:14 | XMS_ITS | Encounter Summary ---
Author Organization [facility] Address [address] [place] [address]. 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 [...] Contact Info) Description 04/25/2024 11:00 AM COMMERCIAL ESCROW ASSISTANT Appointment [facility] [address] [place] [address] [place] [address] Ti Bonilla MD [address] [place] [phone] 05/23/2024 3:30 PM COMMERCIAL ESCROW ASSISTANT [facility] [address] [facility] [place] [address] Jyoti Escobar MD [address] [place] [phone] documented as of this encounter Visit Diagnoses Not on filedocumented in this encounter Care Teams Rope Maker Relationship Specialty Start Date End Date Ti Bonilla MD [address] [place] [phone] PCP - General FAMILY PRACTICE 12/03/21 Evaristo Allan MD [place] Subassembler CARDIOVASCULAR DISEASE 08/19/16 Raul Santana MD CLINICAL CARDIAC ELECTROPHYSIOLOGY 06/16/17 Danny Blackwell MD 725 [place] [address] ORTHOPAEDIC SURGERY 05/01/19 Gayle Arce, MAT MAKER, GAS AND OIL CHECKER-C [address] [phone] NURSE PRACTITIONER 03/03/20 documented as of this encounter
--- OUTSIDE RECORDS SUMMARY | 2024-04-23 05:14 | XMS_ITS | Encounter Summary ---
Author Organization [facility] Address [address] [place] [address]. [place], [place] [address] [place] [address] Care Team Providers Care Terminal Carman Name Role Phone Elza Allan MD Unavailable Unavailabl Raul Duran MD Unavailable Unavailabl Danny Lopes MD Unavailable [phone] Gayle Arce APRN, MEMORY CARE PROGRAM DIRECTOR-C Unavailable Ti Zamora MD Primary Care Provider [phone] Mendel Shah DPM Unavailable [phone] Reason for Visit * Reason Comments Follow Up Atrial Fibrillation Shortness Of Breath Encounter Details Date Type Department Care Team ([facility] Contact Info) Description 06/30/2023 9:00 AM CDT Office Visit [facility] [address] [place] [address] Gayle Arce APRN, MEMORY CARE PROGRAM DIRECTOR-C [address] [facility] [address] [place] [address] Follow Up; Atrial Fibrillation; Shortness [...] 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 His edema was increasing, and [...] received his hospital records from 02/23/2023 in [place]. 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 Diagnoses/Impression: 1. Paroxysmal atrial fibrillation ([facility]/HCC) 2. Localized edema 3. Coronary artery disease involving yavapai-apache coronary artery of yavapai-apache heart, unspecified whether angina present 4. Essential (primary) hypertension 5. 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 provider found PCP: TI ZAMORA MD documented in this encounter Plan of Treatment Upcoming Encounters Date Type Department Care Team (Late st Contact Info) Description 04/25/2024 11:00 AM ACID EXTRACTOR Appointment [facility] [address] [place] [address] [place] [address] Ti Zamora MD [address] [place] [phone] 05/23/2024 3:30 PM ACID EXTRACTOR Office Visit [facility] [address] [place] [address] [place] [phone] Jyoti Escobar MD [address] [place] [address] documented as of this encounter Procedures Procedure Name Priority Date/Time Associated Diagnosis Comments ELECTROCARDIOGRAM (NON MIDMARK ACQUIRED) Routine 06/30/2023 9:17 AM CDT Coronary artery disease involving yavapai-apache coronary artery of yavapai-apache heart, unspecified whether angina present documented in this encounter Results * (ABNORMAL) BASIC METABOLIC PANEL (09/09/2023 10:45 AM CDT) SODIUM S/P/B 143 136 - 145 MMOL/L 09/09/2023 11:03 AM CDT [facility] POTASSIUM S/P/B 4.7 3.5 - 5.1 MMOL/L 09/09/2023 11:03 AM [facility] CHLORIDE S/P/B 104 98 - 107 MMOL/L 09/09/2023 11:03 AM [facility] CO2 33.3(H) 21.0 - 32.0 MMOL/L 09/09/2023 11:03 AM [facility] GLUCOSE 130(H) 70 - 99 MG/DL 09/09/2023 11:03 AM [facility] Comment: FASTING GLUCOSE 100 TO 125 MG/DL IS CONSISTENT WITH IMPAIRED FASTING GLUCOSE. FASTING GLUCOSE >125 MG/DL IS CONSISTENT WITH DIABETES. RANDOM GLUCOSE >200 MG/DL WITH HYPERGLYCEMIC SYMPTOMS IS CONSISTENT WITH DIABETES. PER ADA GUIDELINES BUN 15 6 - 24 MG/DL 09/09/2023 11:03 AM [facility] CREATININE S/P/B 1.20 0.70 - 1.30 MG/DL 09/09/2023 11:03 AM [facility] CALCIUM S/P/B 8.9 8.4 - 10.5 MG/DL 09/09/2023 11:03 AM [facility] ANION GAP 5.7 5.0 - 15.0 MMOL/L 09/09/2023 11:03 AM [facility] OSMOLALITY (CALC) 299 MOSM/KG 024 11:03 AM [facility] Comment:REFERENCE RANGE NOT ESTABLISHED GFR ESTIMATE 68(L) >89 ML/MIN/1. 73 M2 09/09/2023 11:03 AM [facility] GFR NOTES GFR REFERENCE S: 09/09/2023 11:03 AM [facility] Comment: THE ESTIMATED GFR [...] CDT PELON Umana APRN LABORATORY Final Result [facility] [address] [place] [address], * ELECTROCARDIOGRAM (06/30/2023 9:17 AM CDT) 06/30/2023 9:17 AM CDT Narrative [facility] - 07/01/2023 8:35 AM CDT ? [facility] ?[address], [place] ??[address] ? Test Date: ?2023-06-30 Pat Name: ? ELZA MCKEON ? Department: ?? 105 ? Room: ? Gender: ? Male ? Biomedical Engineer: ?? : ?1960 ? Requested By: ELZA ALLAN Order Number: [id number] ?Reading MD: ?? Elza Allan ? Measurements Intervals ?Bertha ? Rate: ? 92 ? P: ? NV: ? 0 ?QRS: ?118 QRSD: ? 125 ?T: ?111 QT: ? 394 ? QTc: ?488 ? Interpretive Statements PROBABLE ATRIAL FLUTTER LATERAL MYOCARDIAL INFARCTION, PROBABLY OLD WITH POSSIBLE POSTERIOR EXTENSION Procedure Note Elza Allan MD - 07/01/2023 [facility] [address] [place] [address] Test Date: 2023-06-30 Pat Name: [facility] Department: 105 Room: Gender: Male Biomedical Engineer: : 1960 Requested By: ELZA ALLAN Order Number: [id number] Reading MD: Elza Allan Measurements Intervals Bertha Rate: 92 P: NV: 0 QRS: 118 QRSD: 125 T: 111 QT: 394 QTc: 488 Interpretive Statements PROBABLE ATRIAL FLUTTER LATERAL MYOCARDIAL INFARCTION, PROBABLY OLD WITH POSSIBLE POSTERIOREXTENSION Elza Allan MD PROCEDURES-ORDERABLE NO LENO RGE Final Result [facility] documented in this encounter Visit Diagnoses Diagnosis Paroxysmal atrial fibrillation (CMS/HCC HHS/HCC)- Primary Atrial fibrillation Localized edema Edema Coronary artery disease involving yavapai-apache coronary artery of yavapai-apache heart, unspecified whether angina present Essential (primary) hypertension Unspecified essential hypertension Hyperlipidemia, mixed Mixed hyperlipidemia [facility] use of drug Encounter for long-term (current) use of other medications documented in this encounter Care Teams Terminal Carman Relationship Specialty Start Date End Date Ti Zamora MD [address] [place] [phone] PCP - General FAMILY PRACTICE 12/03/21 Elza Allan MD [place] Clinical Nursing Manager CARDIOVASCULAR DISEASE 08/19/16 Raul Santana MD CLINICAL CARDIAC ELECTROPHYSIOLOGY 06/16/17 Danny Blackwell MD [address] [place] [address] ORTHOPAEDIC SURGERY 05/01/19 Gayle Arce APRN, MEMORY CARE PROGRAM DIRECTOR-C [address] [facility] [address] [place] [phone] NURSE PRACTITIONER 03/03/20 Mendel Shah DPM [address] [place] [address] [place] [address] Consulting Physician PODIATRY/SURGERY 06/27/23 06/26/24 documented as of this encounter
--- OUTSIDE RECORDS SUMMARY | 2024-04-23 05:14 | XMS_ITS | Encounter Summary ---
Author Organization [facility] Address [address] [place] [address]. 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 [...] Info) Description 04/25/2024 11:00 AM DIRECTOR OF DIGITAL PLATFORMS Appointment [facility] [address] [place] [address] [place] [address] Ti Bonilla MD [address] [place] [phone] 05/23/2024 3:30 PM DIRECTOR OF DIGITAL PLATFORMS [facility] [address] [facility] [place] [address] Jyoti Escobar MD [address] [place] [phone] documented as of this encounter Visit Diagnoses Not on filedocumented in this encounter Care Teams Dobby Loom Weaver Relationship Specialty Start Date End Date Ti Bonilla MD [address] [place] [phone] PCP - General FAMILY PRACTICE 12/03/21 Evaristo Allan MD [place] Utility Worker Driver CARDIOVASCULAR DISEASE 08/19/16 Raul Santana MD CLINICAL CARDIAC ELECTROPHYSIOLOGY 06/16/17 Danny Blackwell MD [address] [place] [address] ORTHOPAEDIC SURGERY 05/01/19 Gayle Arce, SAWMILL TALLY CLERK, PIPE COVERER HELPER-C [address] [phone] NURSE PRACTITIONER 03/03/20 documented as of this encounter
--- OUTSIDE RECORDS SUMMARY | 2024-04-23 05:14 | XMS_ITS | Encounter Summary ---
Author Organization [facility] Address [address] [place] [address]. [place], [place] [address] [place] [address] Care Team Providers Care Ship Cleaner Name Role Phone Evaristo Allan MD Unavailable Unavailabl Raul Duran MD Unavailable Unavailabl Danny Lopes MD Unavailable [phone] Gayle Arce APRN, AUDITOR MEDICAL CLAIMS-C Unavailable [phone] Ti Bonilla MD Primary Care Provider Mendel Shah DPSallie Unavailable [phone] Encounter Details Date Type Department Care Team (Late st Contact Info) Description 06/27/2023 11:25 AM CDT - 06/27/2023 11:59 PM CDT Hospital Encounter 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 Not on [...] TRUEPLUS PEN NEEDLES 31G X 8 MM [facility] 01/19/2021 aspirin EC 81 [...] st Contact Info) Description 04/25/2024 11:00 AM DRYWALL TAPER HELPER Appointment [facility] [address] [place] [address] Ti Bonilla MD [address] [place] [phone] 05/23/2024 3:30 PM DRYWALL TAPER HELPER Office Visit [facility] [address] [facility] [address] Jyoti Escobar MD [address] [place] [phone] documented as of this encounter Procedures Procedure Name Priority Date/Time Associated Diagnosis Comments XR FOOT LT 3V Routine 06/27/2023 11:37 AM CDT Diabetic foot ulcer ([facility]) documented in this encounter Results * [...] Buenrostro MD, 06/27/2023 12:18 PM Tommy Cummings AUDITOR MEDICAL CLAIMS GENERAL IMAGING Fin al Result documented in this encounter Visit Diagnoses Diagnosis Diabetic foot ulcer (CMS/HCC HHS/HCC) Type II or unspecified type diabetes mellitus with other specified manifestations, not stated as uncontrolled documented in this encounter Care Teams Ship Cleaner Relationship Specialty Start Date End Date Ti Bonilla MD [address] [place] [address] PCP - General FAMILY PRACTICE 12/03/21 Evaristo Allan MD [place] Labor Trainer CARDIOVASCULAR DISEASE 08/19/16 Raul Santana MD CLINICAL CARDIAC ELECTROPHYSIOLOGY 06/16/17 Danny Blackwell MD [address] [place] [address] ORTHOPAEDIC SURGERY 05/01/19 Gayle Arce, PSYCHOLOGICAL AIDE, AUDITOR MEDICAL CLAIMS-C 6[address] [facility] [address] [place] [address] NURSE PRACTITIONER 03/03/20 Mendel Shah DPM [address] [place] [address] Consulting Physician PODIATRY/SURGERY 06/27/23 06/26/24 documented as of this encounter
--- OUTSIDE RECORDS SUMMARY | 2024-04-23 05:14 | XMS_ITS | Encounter Summary ---
Author Organization [facility] Address [address] [place] [address]. [place] [address] [place] [address] Care Team Providers Care Indian Blanket Weaver Name Role Phone Evaristo Allan MD Unavailable Unavailabl Raul Duran MD Unavailable Unavailabl Danny Lopes MD Unavailable [phone] Gayle Arce ELECTRONIC TEST TECHNICIAN, CHAIR INSPECTOR-C Unavailable Ti Bonilla MD Primary Care Provider Mendel Shah DPM Unavailable [phone] Encounter Details Date Type Department Care Team (Late st Contact Info) Description 06/30/2023 Orders Only [facility] [address] [place] [address] Alfredo Gonsales, PA-C [address] [place] [address] Social History Tobacco Use Types [...] 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 Not on file [...] st Contact Info) Description 04/25/2024 11:00 AM PERSONAL BANKING ASSISTANT Appointment [facility] [address] [place] [address] Ti Bonilla MD [address] [place] [phone] 05/23/2024 3:30 PM PERSONAL BANKING ASSISTANT Office Visit [facility] [address] [place] [phone] Jyoti Escobar MD [address] [place] [address]76[address] documented as of this encounter Visit Diagnoses Not on filedocumented in this encounter Care Teams Indian Blanket Weaver Relationship Specialty Start Date End Date Ti Bonilla MD [address] [place] [address] PCP - General FAMILY PRACTICE 12/03/21 Evaristo Allan MD [place] Specifications Checker CARDIOVASCULAR DISEASE 08/19/16 Raul Santana MD CLINICAL CARDIAC ELECTROPHYSIOLOGY 06/16/17 Danny Blackwell MD [address] [place] [address] ORTHOPAEDIC SURGERY 05/01/19 Gayle Arce APRN, CHAIR INSPECTOR-C [address] [facility] [address] [place] [phone] NURSE PRACTITIONER 03/03/20 Mendel Shah DPM [facility]5 [place] [address] Consulting Physician PODIATRY/SURGERY 06/27/23 06/26/24 documented as of this encounter
--- OUTSIDE RECORDS SUMMARY | 2024-04-23 05:14 | XMS_ITS | Encounter Summary ---
Author Organization [facility] Address [address] [place] [address]. [place], [place] [address] [place] [address] Care Team Providers Care Button Clamper Name Role Phone Evaristo Allan MD Unavailable Unavailabl Raul Duran MD Unavailable Unavailabl Danny Lopes MD Unavailable [phone] Gayle Arce APRN, ASSISTANT GUEST SERVICES MANAGER-C Unavailable Ti Bonilla MD Primary [...] st Contact Info) Description 04/25/2024 11:00 AM SPRAY GUN REPAIRER Appointment [facility] [address] [place] [address] [place] [address] Ti Bonilla MD [address] [place] [phone] 05/23/2024 3:30 PM SPRAY GUN REPAIRER [facility] [address] [facility] [place] [address] Jyoti Escobar MD [address] [place] [phone] documented as of this encounter Visit Diagnoses Not on filedocumented in this encounter Care Teams Button Clamper Relationship Specialty Start Date End Date Ti Bonilla MD [address] [place] [phone] PCP - General FAMILY PRACTICE 12/03/21 Evaristo Allan MD [place] Audit Lead CARDIOVASCULAR DISEASE 08/19/16 Raul Santana MD CLINICAL CARDIAC ELECTROPHYSIOLOGY 06/16/17 Danny Blackwell MD [address] [place] [address] ORTHOPAEDIC SURGERY 05/01/19 Gayle Arce, LANDING SIGNAL OFFICER, ASSISTANT GUEST SERVICES MANAGER-C [address] [phone] NURSE PRACTITIONER 03/03/20 documented as of this encounter
--- OUTSIDE RECORDS SUMMARY | 2024-04-23 05:14 | XMS_ITS | Encounter Summary ---
Author Organization [facility] Address [address] [place] [address]. [place], [place] [address] [place] [address] Care Team Providers Care Portable Power Tool Repairer Name Role Phone Evaristo Allan MD Unavailable Unavailabl Raul Duran MD Unavailable Unavailabl Danny Lopes MD Unavailable [phone] Gayle Arce APRN, EXTRUDING MACHINE OPERATOR-C Unavailable [phone] Ti Bonilla MD Primary Care Provider [phone] Mendel Shah DPM Unavailable [phone] Encounter Details Date Type Department Care Team (Late st Contact Info) Description 07/04/2023 9:00 AM CDT - 07/04/2023 11:59 PM CDT Hospital Encounter [facility] [address] [place] [address] Olivia Pearson, SUPERVISOR CUSTOMER COMPLAINT SERVICE [address] [place] [address] Discharge Disposition: Home or Self [...] 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 Not on file Not [...] Contact Info) Description 04/25/2024 11:00 AM STAFFING COORDINATOR Appointment [facility] [address] [place] [address] [place] [address] Ti Bonilla MD [address] [place] [phone] 05/23/2024 3:30 PM STAFFING COORDINATOR Office Visit [facility] [address] [facility] [place] [phone] Jyoti Escobar MD [address] [place] [address] documented as of this encounter Visit Diagnoses Diagnosis 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, limited to breakdown of skin ([facility]/HCC HHS/HCC)- Primary documented in this encounter Administered [...] CDT documented in this encounter Care Teams Portable Power Tool Repairer Relationship Specialty Start Date End Date Ti Bonilla MD [address] [place] [phone] PCP - General FAMILY PRACTICE 12/03/21 Evaristo Allan MD [place] Medical Information Officer CARDIOVASCULAR DISEASE 08/19/16 Raul Santana MD CLINICAL CARDIAC ELECTROPHYSIOLOGY 06/16/17 Danny Blackwell MD [address] [place], [place] [phone] ORTHOPAEDIC SURGERY 05/01/19 Gayle rAce, WEEKEND CAREGIVER, EXTRUDING MACHINE OPERATOR-C [address] [phone] NURSE PRACTITIONER 03/03/20 Mendel Shah DPM [facility]5 [facility] [place] [address] Consulting Physician PODIATRY/SURGERY 06/27/23 06/26/24 documented as of this encounter
--- OUTSIDE RECORDS SUMMARY | 2024-04-23 05:14 | XMS_ITS | Encounter Summary ---
Author Organization [facility] Address [address] [place] [address]. 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 [address] [facility] [place] [address] Jyoti Escobar MD [address] [place] [phone] documented as of this encounter Visit Diagnoses Not on filedocumented in this encounter Care Teams Power Line Installer Relationship Specialty Start Date End Date Ti Bonilla MD [address] [place] [phone] PCP - General FAMILY PRACTICE 12/03/21 Evaristo Allan MD [place] Corporate Compliance Director CARDIOVASCULAR DISEASE 08/19/16 Raul Santana MD CLINICAL CARDIAC ELECTROPHYSIOLOGY 06/16/17 Danny Blackwell MD [address] [place] [address] ORTHOPAEDIC SURGERY 05/01/19 Gayle Arce, LINOLEUM FLOOR LAYER, LEARNING AND DEVELOPMENT OFFICER-C [address] [phone] NURSE PRACTITIONER 03/03/20 documented as of this encounter
--- OUTSIDE RECORDS SUMMARY | 2024-04-23 05:14 | XMS_ITS | Encounter Summary ---
Author Organization [facility] Address [address] [place] [address]. [place] [address] [place] [address] Care Team Providers Care Frozen Pie Maker Name Role Phone Evaristo Allan MD Unavailable Unavailabl Raul Duran MD Unavailable Unavailabl e Danny Blackwell MD Unavailable [phone] Gayle Arce APRN, E MAIL SYSTEM ADMINISTRATOR-C Unavailable Ti Bonilla MD Primary Care Provider Mendel Shah DPM Unavailable [phone] Reason for Visit * Reason Comments ECG (SCAN) Encounter Details Date Type Department Care Team (Late st Contact Info) Description 02/23/2023 Scan [facility] [address] [place] [address] Scanned, Doc Pccl ECG (SCAN) [...] 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 Not on [...] st Contact Info) Description 04/25/2024 11:00 AM HOME COMFORT ADVISOR Appointment [facility] [address] [facility] [place] [address] Ti Bonilla MD [address] [place] [phone] 05/23/2024 3:30 PM HOME COMFORT ADVISOR [facility] [address] [place] [address] Jyoti Escobar MD [address] [place] [address] documented as of this encounter Procedures Procedure Name Priority Date/Time Associated Diagnosis Comments ECG GENERIC (SCAN ORDER) Routine 02/23/2023 documented in this encounter Results * ECG (02/23/2023) us Doc Pccl Scanned SCANNING Final Result HS ONBASE documented in this encounter Visit Diagnoses Not on filedocumented in this encounter Care Teams Frozen Pie Maker Relationship Specialty Start Date End Date Ti Bonilla MD [address] [place] [phone] PCP - General FAMILY PRACTICE 12/03/21 Evaristo Allan MD [place] Medicare Interviewer CARDIOVASCULAR DISEASE 08/19/16 Raul Santana MD CLINICAL CARDIAC ELECTROPHYSIOLOGY 06/16/17 Danny Blackwell MD [address]25 [place] [address] ORTHOPAEDIC SURGERY 05/01/19 Gayle Arce APRN, E MAIL SYSTEM ADMINISTRATOR-C 619 [facility] 47 [place] [phone] NURSE PRACTITIONER 03/03/20 Mendel Shah DPM 1215 [place] [address] Consulting Physician PODIATRY/SURGERY 06/27/23 06/26/24 documented as of this encounter
--- OUTSIDE RECORDS SUMMARY | 2024-04-23 05:14 | XMS_ITS | Encounter Summary ---
Author Organization [facility] Address [address] [place] [address]. [place], [place] [address] [place] [address] Care Team Providers Care Manufacturing Worker Name Role Phone Elza Allan MD Unavailable Unavailabl Raul Duran MD Unavailable Unavailabl Danny Lopes MD Unavailable [phone] Gayle Arce APRN, EMERGENCY MEDICAL TECHNICIAN BASIC-C Unavailable Ti Bonilla MD Primary Care Provider [phone] Mendel Shah DPM Unavailable [phone] Encounter Details Date Type Department Care Team (Late st Contact Info) Description 06/29/2023 Orders Only [facility] [address] [place] [address] Elza Allan MD Social History [...] 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 Not on file [...] st Contact Info) Description 04/25/2024 11:00 AM FACETOR Appointment [facility] [address] [place] [address] Ti Bonilla MD [address] [place] [phone] 05/23/2024 3:30 PM FACETOR Office Visit [facility] [address] [place] [address] Jyoti Escobar MD [address] [place] [address] documented as of this encounter Results * ELECTROCARDIOGRAM (06/30/2023 9:17 AM CDT) 06/30/2023 9:17 AM CDT N[facility]ative [facility] - 07/01/2023 8:35 AM CDT ? [facility] ?[address] [place], [place] ??[address] ? Test Date: ?2023-06-30 Pat Name: ? ELZA MCKEON ? Department: ?? 105 ? Room: ? Gender: ? Male ? Balance Staff Inspector: ?? : ?1960 ? Requested By: ELZA ALLAN Order Number: [id number] ?Reading MD: ?? Elza Allan ? Measurements Intervals ?[place] ? Rate: ? 92 ? P: ? ID: ? 0 ?QRS: ?118 QRSD: ? 125 ?T: ?111 QT: ? 394 ? QTc: ?488 ? Interpretive Statements PROBABLE ATRIAL FLUTTER LATERAL MYOCARDIAL INFARCTION, PROBABLY OLD WITH POSSIBLE POSTERIOR EXTENSION Procedure Note Ezla Allan MD - 07/01/2023 [facility], [place] [address] [place] [address] Test Date: 2023-06-30 Pat Name: [facility] Department: 105 Room: Gender: Male Balance Staff Inspector: : 1960 Requested By: ELZA ALLAN Order Number: [id number] Jose Antonio MD: Elza Allan Measurements Intervals [place] Rate: 92 P: ID: 0 QRS: 118 QRSD: 125 T: 111 QT: 394 QTc: 488 Interpretive Statements PROBABLE ATRIAL FLUTTER LATERAL MYOCARDIAL INFARCTION, PROBABLY OLD WITH POSSIBLE POSTERIOREXTENSION us Elza Allan MD PROCEDURES-ORDERABLE NO LENO RGE Final Result [facility] documented in this encounter Visit Diagnoses Diagnosis Coronary artery disease involving iroquois coronary artery of iroquois heart, unspecified whether angina present- Primary Anticoagulated Encounter for long-term (current) use of anticoagulants Paroxysmal atrial fibrillation ([facility]/HCC HHS/HCC)- Primary Atrial fibrillation Localized edema Edema Coronary artery disease involving iroquois coronary artery of iroquois heart, unspecified whether angina present Essential (primary) hypertension Unspecified essential hypertension Hyperlipidemia, mixed Mixed hyperlipidemia half-way use of drug Encounter for long-term (current) use of other medications documented in this encounter Care Teams Manufacturing Worker Relationship Specialty Start Date End Date Ti Bonilla MD [address] [place] [address] PCP - General FAMILY PRACTICE 12/03/21 Elza Allan MD [place] [employer] Fixture Builder Apprentice CARDIOVASCULAR DISEASE 08/19/16 Raul Santana MD CLINICAL CARDIAC ELECTROPHYSIOLOGY 06/16/17 Danny Blackwell MD [address] [place], [place] [phone] ORTHOPAEDIC SURGERY 05/01/19 Gayle Arce APRN, EMERGENCY MEDICAL TECHNICIAN BASIC-C [address] [facility] [address] [place] [address] NURSE PRACTITIONER 03/03/20 Mendel Shah DPSallie [address] [place] [address] Consulting Physician PODIATRY/SURGERY 06/27/23 06/26/24 documented as of this encounter
--- OUTSIDE RECORDS SUMMARY | 2024-04-23 05:14 | XMS_ITS | Encounter Summary ---
Author Organization [facility] Address [address] [place] [address]. [place] [address] [place] [address] Care Team Providers Care Customer Service Professional Name Role Phone Evaristo Allan MD Unavailable Unavailabl Raul Duran MD Unavailable Unavailabl Danny Lopes MD Unavailable [phone] Gayle Arce APRN, SHOE TURNER-C Unavailable Ti Bonilla MD Primary Care Provider Mendel Shah DPM Unavailable [phone] Reason for Visit * Reason Onset Date Comments Follow Up Call 08/22/2023 Encounter Details Date Type Department Care Team ([facility] Contact Info) Description 08/22/2023 Telephone [facility] [address] [place] [address] Gayle Arce APRN, SHOE TURNER-C [address] [facility] [address] [place] [address] Follow Up Call Social History [...] 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 * Gayle Arce APRN, SHOE TURNER-C - 08/23/2023 1:33 PM CDT Holter is [...] 9:46 AM CDT I called Evaristo @ [phone]. April (spouse) answered the phone instead. She [...] st Contact Info) Description 04/25/2024 11:00 AM ANALYTICS ASSOCIATE Appointment [facility] [address] [place] [address] [place] [address] Ti Bonilla MD [address] [place] [phone] 05/23/2024 3:30 PM ANALYTICS ASSOCIATE Office Visit [facility] [address] [facility] [place] [address] Jyoti Escobar MD [address] [place] [address] documented as of this encounter Visit Diagnoses Not on filedocumented in this encounter Care Teams Customer Service Professional Relationship Specialty Start Date End Date Ti Bonilla MD [address] [place] [phone] PCP - General FAMILY PRACTICE 12/03/21 Evaristo Allan MD [employer]Shipper CARDIOVASCULAR DISEASE 08/19/16 Raul Santana MD CLINICAL CARDIAC ELECTROPHYSIOLOGY 06/16/17 Danny Blackwell MD [address] [place] [address] ORTHOPAEDIC SURGERY 05/01/19 Gayle Arce APRN, SHOE TURNER-C 6[address] [facility] [address] [place] [phone] NURSE PRACTITIONER 03/03/20 Mendel Shah DPM [address] [facility] [place] [address] Consulting Physician PODIATRY/SURGERY 06/27/23 06/26/24 documented as of this encounter
--- OUTSIDE RECORDS SUMMARY | 2024-04-23 05:14 | XMS_ITS | Encounter Summary ---
Author Organization [facility] Address [address] [place] [address]. [place] [address] [place] [address] Care Team Providers Care Pain Management Nurse Practitioner Name Role Phone Evaristo Allan MD Unavailable Unavailabl Raul Duran MD Unavailable Unavailabl Danny Lopes MD Unavailable [phone] Gayle Arce APRN, INVESTMENT FUND MANAGER-C Unavailable Ti Bonilla MD Primary Care Provider [phone] Mendel Shah DPM Unavailable [phone] Reason for Visit * Reason Onset Date Comments Record Request 06/30/2023 Encounter Details Date Type Department Care Team ([facility] Contact Info) Description 06/30/2023 Telephone [facility] [address] [place] [address] Gayle Arce APRN, INVESTMENT FUND MANAGER-C [address] [facility] [address] [place] [address] Record Request Social History Tobacco [...] 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 * Gayle Arce APRN, NP-C - 07/01/2023 [...] any other cardiac testing be faxed to [phone]. This request was faxed to [facility] at [phone]. * Chelsea Garcia LPN - 06/30/2023 3:55 PM CDT Images from the original note were not included. Message Received: Today Gayle Arce APRN, NP-C P Pccl Tammy Yazmin Nurse I need records from his hospitalization in [place]. He was hospitalized at [facility] in [place] in February. Phone number on their website is [phone]. He apparently had a stress test. I need a discharge note, and any other cardiac testing he had performed. documented in this encounter Plan of Treatment Upcoming Encounters Date Type Department Care Team (Late st Contact Info) Description 04/25/2024 11:00 AM MANDARIN TUTOR Appointment [facility] [address] [place] [address] Ti Bonilla MD [address] [place] [phone] 05/23/2024 3:30 PM MANDARIN TUTOR Office Visit [facility] [address] [place] [phone] Jyoti Escobar MD [address] [place], [place] [phone] documented as of this encounter Visit Diagnoses Not on filedocumented in this encounter Care Teams Pain Management Nurse Practitioner Relationship Specialty Start Date End Date Ti Bonilla MD [address] [place] [phone] PCP - General FAMILY PRACTICE 12/03/21 Evaristo Allan MD [employer] [employer] Aide CARDIOVASCULAR DISEASE 08/19/16 Raul Santana MD CLINICAL CARDIAC ELECTROPHYSIOLOGY 06/16/17 Danny Blackwell MD [address] [place] [address] ORTHOPAEDIC SURGERY 05/01/19 Gayle Arce APRN, INVESTMENT FUND MANAGER-C 619 [facility] [address] [place] [address] NURSE PRACTITIONER 03/03/20 Mendel Shah DPM [facility] [place] [facility] [place] [place] [address] Consulting Physician PODIATRY/SURGERY 06/27/23 06/26/24 documented as of this encounter
--- OUTSIDE RECORDS SUMMARY | 2024-04-23 05:14 | XMS_ITS | Encounter Summary ---
Author Organization [facility] Address [address] [place] [address]. [place], [place] [address] [place] [address] Care Team Providers Care Pasta Maker Name Role Phone Evaristo Allan MD Unavailable Unavailabl Raul Duran MD Unavailable Unavailabl Danny Lopes MD Unavailable [phone] Gayle Arce APRN, MEDICAL SUPERINTENDENT-C Unavailable Ti Bonilla MD Primary Care Provider [...] Contact Info) Description 04/25/2024 11:00 AM LABOR ARBITRATOR HEARING OFFICE Appointment [facility] [address] [place] [address] [place] [address] Ti Bonilla MD [address] [place] [phone] 05/23/2024 3:30 PM LABOR ARBITRATOR HEARING OFFICE Office [facility] [address] [facility] [place] [address] Jyoti Escobar MD [address] [place] [phone] documented as of this encounter Visit Diagnoses Not on filedocumented in this encounter Care Teams Pasta Maker Relationship Specialty Start Date End Date Ti Bonilla MD [address] [place] [phone] PCP - General FAMILY PRACTICE 12/03/21 Evaristo Allan MD [place] Contract Writer CARDIOVASCULAR DISEASE 08/19/16 Raul Santana MD CLINICAL CARDIAC ELECTROPHYSIOLOGY 06/16/17 Danny Blackwell MD [address] [place] [address] ORTHOPAEDIC SURGERY 05/01/19 Gayle Arce, OFFAL TRIMMER, MEDICAL SUPERINTENDENT-C [address] [phone] NURSE PRACTITIONER 03/03/20 documented as of this encounter
--- OUTSIDE RECORDS SUMMARY | 2024-04-23 05:14 | XMS_ITS | Encounter Summary ---
Author Organization [facility] Address [address] [place] [address]. [place] [address] [place] [address] Care Team Providers Care Director Of Enterprise Applications Name Role Phone Evaristo Allan MD Unavailable Unavailabl Raul Duran MD Unavailable Unavailabl Danny Lopes MD Unavailable [phone] Gayle Arce APRN, MUSSEL OPENER-C Unavailable Ti Bonilla MD Primary Care Provider Mendel Shah DPM Unavailable [phone] Reason for Visit * Reason Onset Date Comments Other 08/01/2023 Encounter Details Date Type Department Care Team ([facility] [address] Contact Info) Description 08/01/2023 Telephone [facility] [address] [place] [address] Gayle Arce APRN, MUSSEL OPENER-C [address] [facility] [address] [place] [address] Other Social History Tobacco Use [...] 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 Pt states that he was told to call Gaylemildred castaneda and see if she could get this testing pre certed? This is for a echo a duplex carotid and 2 day stress test. He also states that he was not sched for his monitor. I see that [facility] tried to reach him. Please advise if your willing to order testing . He states he will come in for an appt also as well if needed? documented in this encounter Plan of Treatment Upcoming Encounters Date Type Department Care Team (Late st Contact Info) Description 04/25/2024 11:00 AM NATURAL GAS SHOTHOLE DRILLER Appointment [facility] [place] [address] Ti Bonilla MD [address] [place] [phone] 05/23/2024 3:30 PM NATURAL GAS SHOTHOLE DRILLER Office Visit [facility] [address] [phone] Jyoti Escobar MD [address] [place] [address] documented as of this encounter Visit Diagnoses Not on filedocumented in this encounter Care Teams Director Of Enterprise Applications Relationship Specialty Start Date End Date Ti Bonilla MD [address] [place] [phone] PCP - General FAMILY PRACTICE 12/03/21 Evaristo Allan MD [place] [facility] Aide Caregiver CARDIOVASCULAR DISEASE 08/19/16 Raul Santana MD CLINICAL CARDIAC ELECTROPHYSIOLOGY 06/16/17 Danny Blackwell MD [address] [place] [address] ORTHOPAEDIC SURGERY 05/01/19 Gayle Arce, BARBARA, MUSSEL OPENER-C [address] [facility] [address] [place] [phone] NURSE PRACTITIONER 03/03/20 Mendel Shah DPM [address] [place] [address] Consulting Physician PODIATRY/SURGERY 06/27/23 06/26/24 documented as of this encounter
--- OUTSIDE RECORDS SUMMARY | 2024-04-23 05:14 | XMS_ITS | Encounter Summary ---
Author Organization [facility] Address [address] [place] [address]. [place], [place] [address] [place] [address] Care Team Providers Care Field Human Resources Manager Name Role Phone Evaristo Allan MD Unavailable Unavailabl Raul Duran MD Unavailable Unavailabl Danny Lopes MD Unavailable [phone] Gayle Arce APRN, CLIENT SERVICE ADMINISTRATOR-C Unavailable Ti Bonilla MD Primary Care Provider [phone] Mendel Shah DPM Unavailable [phone] Encounter Details Date Type Department Care Team (Late st Contact Info) Description 02/23/2023 Scan [facility] [address] [place] [phone] Scanned, Doc Pccl Social History Tobacco Use [...] 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 [address] [place] [address] [place] [address] Ti Bonilla MD [address] [place] [phone] 05/23/2024 3:30 PM QUALITY LAB ASSOC Office Visit [facility] [place] [phone] Jyoti Escobar MD [address] [place] [address] documented as of this encounter Visit Diagnoses Not on filedocumented in this encounter Care Teams Field Human Resources Manager Relationship Specialty Start Date End Date Ti Bonilla MD [address] [place] [phone] PCP - General FAMILY PRACTICE 12/03/21 Evaristo Allan MD [place] Shipper CARDIOVASCULAR DISEASE 08/19/16 Raul Santana MD CLINICAL CARDIAC ELECTROPHYSIOLOGY 06/16/17 Danny Blackwell MD [address] [place], [place] [phone] ORTHOPAEDIC SURGERY 05/01/19 Gayle Arce, BARBARA, CLIENT SERVICE ADMINISTRATOR-C 619 [facility] [address] [place] [address] NURSE PRACTITIONER 03/03/20 Mendel Shah DPM [address] [place] [phone] Consulting Physician PODIATRY/SURGERY 06/27/23 06/26/24 documented as of this encounter
--- OUTSIDE RECORDS SUMMARY | 2024-04-23 05:14 | XMS_ITS | Encounter Summary ---
Author Organization [facility] Address [address] [place] [address]. [place] [address] [place] [address] Care Team Providers Care Skinning Machine Feeder Name Role Phone Evaristo Allan MD Unavailable Unavailabl Raul Duran MD Unavailable Unavailabl Danny Lopes MD Unavailable [phone] Jolynn Arias APRN, TECHNICAL PROGRAM MANAGER-C Unavailable Ti Bonilla MD Primary Care Provider Mendel Shah DPM Unavailable [phone] Reason for Visit * Reason Onset Date Comments Appointment Request 08/10/2023 Back in A-fi b Encounter Details Date Type Department Care Team ([facility] st Contact Info) Description 08/10/2023 Telephone [facility] [address] [place] [address] Jolynn Arias APRN, TECHNICAL PROGRAM MANAGER-C [address] [facility] [address] [place] [address] Appointment Request (Back in A-fib) [...] 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 I will try to reach the [facility] to contact him again now that he has hisphone. * Rin Larson MA - 08/12/2023 3:54 PM CDT Three attempts made today to contact patient on the [phone] no answer and no voicemail set up. * Jolynn Arias APRN, NP-C - 08/12/2023 3:23 PM CDTAddended by: JOLYNN ARIAS on: 08/12/2023 03:23 PM Modules accepted: Orders * Jolynn Arias APRN, NP-C - 08/12/2023 3:00 PM CDT Called PCP office to see if they had a different number. They have [phone]. They have the samenumber we have listed [...] Contact Info) Description 04/25/2024 11:00 AM INSURANCE FOLLOW UP SPECIALIST Appointment [facility] [address] [place] [address] Ti Bonilla MD [address] [place] [phone] 05/23/2024 3:30 PM INSURANCE FOLLOW UP SPECIALIST Office Visit [facility] [address] [place] [phone] Jyoti Escobar MD [address] [place] [address] documented as of this encounter Visit Diagnoses Not on filedocumented in this encounter Care Teams Skinning Machine Feeder Relationship Specialty Start Date End Date Ti Bonilla MD [address] [place] [address] PCP - General FAMILY PRACTICE 12/03/21 Evaristo Allan MD [place] [employer] CARDIOVASCULAR DISEASE 08/19/16 Raul Santana MD CLINICAL CARDIAC ELECTROPHYSIOLOGY 06/16/17 Danny Blackwell MD [address] [place] [address] ORTHOPAEDIC SURGERY 05/01/19 Jolynn Arias APRN, TECHNICAL PROGRAM MANAGER-C 619 [facility] [address] [place] [address] NURSE PRACTITIONER 03/03/20 Mendel Shah DPM [address] [place] [address] [place] [address] Consulting Physician PODIATRY/SURGERY 06/27/23 06/26/24 documented as of this encounter
--- OUTSIDE RECORDS SUMMARY | 2024-04-23 05:14 | XMS_ITS | Encounter Summary ---
Author Organization [facility] Address [address] [place] [address]. [place], [place] [address] [place] [address] Care Team Providers Care Clinical Ob Name Role Phone Evaristo Allan MD Unavailable Unavailabl Raul Duran MD Unavailable Unavailabl Danny Lopes MD Unavailable [phone] Gayle Arce APRN, BOILER REPAIR SUPERVISOR-C Unavailable Ti Bonilla MD Primary Care Provider Encounter Details Date Type Department Care Team (Late st Contact Info) Description 11/30/2022 11:00 AM CDT - 11/30/2022 11:59 PM CDT Hospital Encounter [facility] [address] [place] [address] Olivia Pearson, LOTTERY SALES CLERK [address] [place] [phone] Discharge Disposition: Home or Self Care (Routine [...] Contact Info) Description 04/25/2024 11:00 AM HEAD OF MOBILE Appointment [facility] [address] [place] [address] Ti Bonilla MD [address] [place] [phone] 05/23/2024 3:30 PM HEAD OF MOBILE Office Visit [facility] [address] [place] [phone] Jyoti Escobar MD [address] [place] [address] documented as of this encounter Visit Diagnoses [...] CDT documented in this encounter Care Teams Clinical Ob Relationship Specialty Start Date End Date Ti Bonilla MD [address] [place] [phone] PCP - General FAMILY PRACTICE 12/03/21 Evaristo Allan MD [place] Inside Sales Account Representative CARDIOVASCULAR DISEASE 08/19/16 Raul Santana MD CLINICAL CARDIAC ELECTROPHYSIOLOGY 06/16/17 Danny Blackwell MD [address] [place] [address] ORTHOPAEDIC SURGERY 05/01/19 Gayle Arce APRN, BOILER REPAIR SUPERVISOR-C [address] [place] [address] 4[address] [place] [address] NURSE PRACTITIONER 03/03/20 documented as of this encounter
--- OUTSIDE RECORDS SUMMARY | 2024-04-23 05:14 | XMS_ITS | Encounter Summary ---
Author Organization [facility] Address [address] [place] [address]. [place], [place] [address] [place] [address] Care Team Providers Care Diesel Electrician Name Role Phone Evaristo Allan MD Unavailable Unavailabl Raul Duran MD Unavailable Unavailabl Danny Lopes MD Unavailable [phone] Gayle Arce APRN, VENDETTE-C Unavailable [phone] Ti Bonilla MD Primary Care Provider Encounter Details Date Type Department Care Team (Late st Contact Info) Description 11/24/2022 11:11 AM CDT - 11/24/2022 11:59 PM CDT Hospital Encounter [facility] [address] [place] [address] Olivia Pearson, LAWN CARE TECHNICIAN [address] [place] [phone] Discharge Disposition: Home or Self Care (Routine [...] 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 [address] [place] [address] Ti Bonilla MD [address] [place] [phone] 05/23/2024 3:30 PM OVEN HEATER Office Visit [facility] [address] [place] [phone] Jyoti Escobar MD [address] [place] [address] documented as of this encounter Visit Diagnoses [...] CDT documented in this encounter Care Teams Diesel Electrician Relationship Specialty Start Date End Date Ti Bonilla MD [address] [place] [phone] PCP - General FAMILY PRACTICE 12/03/21 Evaristo Allan MD [place] Electronic Console Display Operator CARDIOVASCULAR DISEASE 08/19/16 Raul Santana MD CLINICAL CARDIAC ELECTROPHYSIOLOGY 06/16/17 Danny Blackwell MD [address] [place] [address] ORTHOPAEDIC SURGERY 05/01/19 Gayle Arce APRN, VENDETTE-C [address] [place] [address] [address] [place] [address] NURSE PRACTITIONER 03/03/20 documented as of this encounter
--- OUTSIDE RECORDS SUMMARY | 2024-04-23 05:14 | XMS_ITS | Encounter Summary ---
Author Organization [facility] Address [address] [place] [address]. 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 Not on [...] st Contact Info) Description 04/25/2024 11:00 AM GOLF SHOE SPIKE ASSEMBLER Appointment [facility] [address] [place] [address] [place] [address] Ti Bonilla MD [address] [place] [phone] 05/23/2024 3:30 PM GOLF SHOE SPIKE ASSEMBLER [facility] [address] [place] [address] Jyoti Escobar MD [address] [place] [address] documented as of this encounter Visit Diagnoses Not on filedocumented in this encounter Care Teams Proposal Analyst Relationship Specialty Start Date End Date Ti Bonilla MD [address] [place] [phone] PCP - General FAMILY PRACTICE 12/03/21 Evaristo Allan MD [place] Engineer Internship CARDIOVASCULAR DISEASE 08/19/16 Raul Santana MD CLINICAL CARDIAC ELECTROPHYSIOLOGY 06/16/17 Danny Blackwell MD [address] [place] [address] ORTHOPAEDIC SURGERY 05/01/19 Gayle Arce, WORK ENVIRONMENT SAFETY INSPECTOR, SHOPPER MARKETING MANAGER-C [address] [phone] NURSE PRACTITIONER 03/03/20 documented as of this encounter
--- OUTSIDE RECORDS SUMMARY | 2024-04-23 05:14 | XMS_ITS | Encounter Summary ---
Author Organization [facility] Address [address] [place] [address]. [place], [place] [address] [place] [address] Care Team Providers Care Heel Seat Laster Name Role Phone Evaristo Allan MD Unavailable Unavailabl Raul Duran MD Unavailable Unavailabl Danny Lopes MD Unavailable [phone] Gayle Arce APRN, FRONT WINDOW CASHIER-C Unavailable Ti Bonilla MD Primary Care Provider Encounter Details Date Type Department Care Team (Late st Contact Info) Description 12/07/2022 10:52 AM CDT - 12/07/2022 11:59 PM CDT Hospital Encounter [facility] [address] [place] [address] Olivia Pearson, HOSTESS [address] [place] [phone] Discharge Disposition: Home or Self Care (Routine [...] 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 [address] [place] [address] Ti Bonilla MD [address] [place] [phone] 05/23/2024 3:30 PM COSTUMING SUPERVISOR Office Visit [facility] [address] [place] [phone] Jyoti Escobar MD [address] [place] [address] documented as of this encounter Visit Diagnoses [...] CDT documented in this encounter Care Teams Heel Seat Laster Relationship Specialty Start Date End Date Ti Bonilla MD [address] [place] [phone] PCP - General FAMILY PRACTICE 12/03/21 Evaristo Allan MD [place] Otorhinolaryngologist CARDIOVASCULAR DISEASE 08/19/16 Raul Santana MD CLINICAL CARDIAC ELECTROPHYSIOLOGY 06/16/17 Danny Blackwell MD 5 [place] [address] ORTHOPAEDIC SURGERY 05/01/19 Gayle Arce APRN, FRONT WINDOW CASHIER-C [address] [place] [address] [address] [place] [address] NURSE PRACTITIONER 03/03/20 documented as of this encounter
--- OUTSIDE RECORDS SUMMARY | 2024-04-23 05:14 | XMS_ITS | Encounter Summary ---
Author Organization [facility] Address [address] [place] [address]. [place], [place] [address] [place] [address] Care Team Providers Care Precinct Police Sergeant Name Role Phone Evaristo Allan MD Unavailable Unavailabl Raul Duran MD Unavailable Unavailabl e Danny Blackwell MD Unavailable [phone] Gayle Arce APRN, MULTISENSOR INTELLIGENCE OFFICER-C Unavailable Ti Bonilla MD Primary Care Provider Mendel Shah DPM Unavailable [phone] Reason for Visit * Reason Comments Stress Test (SCAN) Encounter Details Date Type Department Care Team (Late st Contact Info) Description 02/25/2023 Scan [facility] [address] [place] [address] Scanned, Doc Pccl Stress Test [...] st Contact Info) Description 04/25/2024 11:00 AM COMPOUNDING ASSISTANT Appointment [facility] [address] [facility] [place] [address] Ti Bonilla MD [address] [place] [phone] 05/23/2024 3:30 PM COMPOUNDING ASSISTANT Office Visit [facility] [address] [place] [address] Jyoti Escobar MD [address] [place] [address] documented as of this encounter Procedures Procedure Name Priority Date/Time Associated Diagnosis Comments STRESS TEST (SCAN ORDER) Routine 02/25/2023 documented in this encounter Results * STRESS TEST (02/25/2023) us Doc Pccl Scanned SCANNING Final Result [facility] documented in this encounter Visit Diagnoses Not on filedocumented in this encounter Care Teams Precinct Police Sergeant Relationship Specialty Start Date End Date Ti Bonilla MD [address] [place] [address] PCP - General FAMILY PRACTICE 12/03/21 Evaristo Allan MD [place] Do All Operator CARDIOVASCULAR DISEASE 08/19/16 Raul Santana MD CLINICAL CARDIAC ELECTROPHYSIOLOGY 06/16/17 Danny Blackwell MD 5 [place] [address] ORTHOPAEDIC SURGERY 05/01/19 Gayle Arce APRN, MULTISENSOR INTELLIGENCE OFFICER-C 619 [facility] [address] [place] [phone] NURSE PRACTITIONER 03/03/20 Mendel Shah DPM [address] [facility] [place] [address] Consulting Physician PODIATRY/SURGERY 06/27/23 06/26/24 documented as of this encounter
--- OUTSIDE RECORDS SUMMARY | 2024-04-23 05:14 | XMS_ITS | Encounter Summary ---
Author Organization [facility] Address [address] [place] [address]. [place], [place] [address] [place] [address] Care Team Providers Care Regional Guide Name Role Phone Evaristo Allan MD Unavailable Unavailabl Raul Duran MD Unavailable Unavailabl Danny Lopes MD Unavailable [phone] Gayle Arce APRN, UPPER CUTTER-C Unavailable Ti Bonilla MD Primary Care Provider Encounter Details Date Type Department Care Team (Late st Contact Info) Description 12/29/2022 10:52 AM CDT - 12/29/2022 11:59 PM CDT Hospital Encounter [facility] [address] [place] [address] Olivia Pearson, AUDIO VISUAL PRODUCTION SPECIALIST [address] [place] [phone] Discharge Disposition: Home or Self Care (Routine [...] 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 [address] [place] [address] [place] [address] Ti Bonilla MD [address] [place] [phone] 05/23/2024 3:30 PM ENHANCED ENVIRONMENTAL OPERATOR Office Visit [facility] [address] [facility] [place] [address] Jyoti Escobar MD [address] [place] [address] documented as of this encounter Visit Diagnoses Not on filedocumented in this encounter Care Teams Regional Guide Relationship Specialty Start Date End Date Ti Bonilla MD [address] [place], [place] [phone] PCP - General FAMILY PRACTICE 12/03/21 Evaristo Allan MD [place] Ophthalmic Aide CARDIOVASCULAR DISEASE 08/19/16 Raul Santana MD CLINICAL CARDIAC ELECTROPHYSIOLOGY 06/16/17 Danny Blackwell MD 5 [place] [address] ORTHOPAEDIC SURGERY 05/01/19 Gayle Arce, BREAKER UNIT ASSEMBLER, UPPER CUTTER-C 619 [facility] 47 [place] [address] NURSE PRACTITIONER 03/03/20 documented as of this encounter
--- OUTSIDE RECORDS SUMMARY | 2024-04-23 05:14 | XMS_ITS | Encounter Summary ---
Author Organization [facility] Address [address] [place] [address]. [place], [place] [address] [place] [address] Care Team Providers Care Assistance Specialist Name Role Phone Evaristo Allan MD Unavailable Unavailabl Raul Duran MD Unavailable Unavailabl Danny Lopes MD Unavailable [phone] Gayle Arce APRN, GUN REPAIR CLERK-C Unavailable Ti Bonilla MD Primary Care Provider [phone] Encounter Details Date Type Department Care Team [...] Contact Info) Description 04/25/2024 11:00 AM HARNESS INSTALLER Appointment [facility] [address] [place] [address] [place] [address] Ti Bonilla MD [address] [place] [phone] 05/23/2024 3:30 PM HARNESS INSTALLER [facility] [address] [facility] [place] [place] [address] Jyoti Escobar MD [address] [place] [phone] documented as of this encounter Visit Diagnoses Not on filedocumented in this encounter Care Teams Assistance Specialist Relationship Specialty Start Date End Date Ti Bonilla MD [address] [place] [phone] PCP - General FAMILY PRACTICE 12/03/21 Evaristo Allan MD [place] Sluice Tender CARDIOVASCULAR DISEASE 08/19/16 Raul Santana MD CLINICAL CARDIAC ELECTROPHYSIOLOGY 06/16/17 Danny Blackwell MD 7[address] [place] [address] ORTHOPAEDIC SURGERY 05/01/19 Gayle Arce, HAND DEICER ELEMENT WINDER, GUN REPAIR CLERK-C [address] [phone] NURSE PRACTITIONER 03/03/20 documented as of this encounter
--- OUTSIDE RECORDS SUMMARY | 2024-04-23 05:14 | XMS_ITS | Encounter Summary ---
Author Organization [facility] Address [address] [place] [address]. [place], [place] [address] [place] [address] Care Team Providers Care Film Projector Operator Name Role Phone Evaristo Allan MD Unavailable Unavailabl Raul Duran MD Unavailable Unavailabl Danny Lopes MD Unavailable [phone] Gayle Arce APRN, MAGNETIC PROSPECTING SUPERVISOR-C Unavailable Ti Bonilla MD Primary Care Provider [phone] Mendel Shah DPM Unavailable [phone] Reason for Referral * Imaging (Routine) - Closed Specialty Diagnoses / Procedures Referred By Charito ledbetter Referred To Contact Cardiology Diagnoses Atypical atrial flutter ([facility]) Procedures CLINIC - [address] [facility] - Today Alfredo Gonsales PA-C [address] [place] [address] Phone: tel: fax: Referral ID Status Reason Start Date Expiration Date Visits Re quested Visits Authorized [id number] Closed 06/30/2023 06/29/2024 1 1 Reason for Visit * Reason Onset Date Comments Holter Monitor 06/30/2023 Encounter Details Date Type Department Care Team ([facility] [facility] st Contact Info) Description 06/30/2023 Telephone [facility] [address] [place] [address] Alfredo Gonsales PA-C [address] [place] [address] Holter Monitor Social History Tobacco [...] 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 [...] Contact Info) Description 04/25/2024 11:00 AM EMBEDDED ENGINEER Appointment [facility] [address] [facility] [place] [address] Ti Bonilla MD [address] [place] [phone] 05/23/2024 3:30 PM EMBEDDED ENGINEER Office Visit [facility] [address] [place] [address] Jyoti Escobar MD [address] [place] [address] documented as of this encounter Results * CLINIC - [id number] [facility] - Today (10/08/2023 6:49 AM CDT) Narrative [facility] - 10/08/2023 6:49 AM CDT Ambulatory Automobile Service Station Manager Report Patient Name: Evaristo Zelaya : 1960 [facility]: [id number] Date of Testin09/25/2023 Ordering Provider: MARKELL STEVENS [...] 10/12/2023 Alfredo Gonsales PA-C CV VASCULAR ORDERABLES [facility] al Result [facility] documented in this encounter Visit Diagnoses Diagnosis Atypical atrial flutter (CMS/HCC HHS/HCC)- Primary Atrial flutter Atypical atrial flutter (CMS/HCC HHS/HCC) Atrial flutter documented in this encounter Care Teams Film Projector Operator Relationship Specialty Start Date End Date Ti Bonilla MD 5 [place] [phone] PCP - General FAMILY PRACTICE 12/03/21 Evaristo Allan MD [place] Supervisor Mechanic Boilermaking CARDIOVASCULAR DISEASE 08/19/16 Raul Santana MD CLINICAL CARDIAC ELECTROPHYSIOLOGY 06/16/17 Danny Blackwell MD 5 [place] [address] ORTHOPAEDIC SURGERY 05/01/19 Gayle Arce APRN, MAGNETIC PROSPECTING SUPERVISOR-C [address] [facility] 47 [place] [address] NURSE PRACTITIONER 03/03/20 Rolens, Mendel Graham DPM [address] [place] [address] Consulting Physician PODIATRY/SURGERY 06/27/23 06/26/24 documented as of this encounter
--- OUTSIDE RECORDS SUMMARY | 2024-04-23 05:14 | XMS_ITS | Encounter Summary ---
Author Organization [facility] Address [address] [place] [address]. [place], [place] [address] [place] [address] Care Team Providers Care Information Director Name Role Phone Evaristo Allan MD Unavailable Unavailabl Raul Duran MD Unavailable Unavailabl Danny Lopes MD Unavailable [phone] Gayle Arce APRN, DOCUMENT CLERK-C Unavailable Ti Bonilla MD Primary Care Provider Encounter Details Date Type Department Care Team (Late st Contact Info) Description 01/11/2023 10:45 AM CDT - 01/11/2023 11:59 PM CDT Hospital Encounter [facility] [address] [place] [address] Olivia Pearson, CORRECTIONAL SUPPLY SUPERVISOR [address] [place] [phone] Discharge Disposition: Home or Self Care (Routine [...] 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 [address] [place] [address] Ti Bonilla MD [address] [place] [phone] 05/23/2024 3:30 PM DIAL REFINISHER Office Visit [facility] [address] [place] [phone] Jyoti Escobar MD [address] [place] [address] documented as of this encounter Visit Diagnoses [...] CDT documented in this encounter Care Teams Information Director Relationship Specialty Start Date End Date Ti Bonilla MD [address] [place] [phone] PCP - General FAMILY PRACTICE 12/03/21 Evaristo Allan MD [place] Fire And Explosion Investigator CARDIOVASCULAR DISEASE 08/19/16 Raul Santana MD CLINICAL CARDIAC ELECTROPHYSIOLOGY 06/16/17 Danny Blackwell MD 5 [place] [address] ORTHOPAEDIC SURGERY 05/01/19 Gayle Arce APRN, DOCUMENT CLERK-C [address] [place] [address] [address] [place] [address] NURSE PRACTITIONER 03/03/20 documented as of this encounter
--- OUTSIDE RECORDS SUMMARY | 2024-04-23 05:14 | XMS_ITS | Encounter Summary ---
Author Organization [facility] Address [address] [place] [address]. [place] [address] [place] [address] Care Team Providers Care School Psychometrist Name Role Phone Evaristo Allan MD Unavailable Unavailabl Raul Duran MD Unavailable Unavailabl Danny Lopes MD Unavailable [phone] Gayle Arce APRN, CUSTOMS IMPORT SPECIALIST-C Unavailable Ti Bonilla MD Primary Care Provider [phone] Mendel Shah DPM Unavailable [phone] Reason for Visit * Reason Onset Date Comments Appointment Reminder 08/12/2023 Encounter Details Date Type Department Care Team ([facility] st Contact Info) Description 08/12/2023 Telephone [facility] [address] [place] [address] Gayle Arce APRN, CUSTOMS IMPORT SPECIALIST-C [address] [facility] [address] [place] [address] Appointment Reminder Social History Tobacco [...] st Contact Info) Description 04/25/2024 11:00 AM WOOD SCIENCE PROFESSOR [facility]ointment [facility] [address] [facility] [place] [address] Ti Bonilla MD [address] [place] [phone] 05/23/2024 3:30 PM WOOD SCIENCE PROFESSOR [facility] [address] [place] [phone] Jyoti Escobar MD [address] [place], [place] 9[address] documented as of this encounter Visit Diagnoses Not on filedocumented in this encounter Care Teams School Psychometrist Relationship Specialty Start Date End Date Ti Bonilla MD [address] [place] [phone] PCP - General FAMILY PRACTICE 12/03/21 Evaristo Allan MD [place] Centrifugal Screen Tender CARDIOVASCULAR DISEASE 08/19/16 Raul Santana MD CLINICAL CARDIAC ELECTROPHYSIOLOGY 06/16/17 Danny Blackwell MD [address] [place] [address] ORTHOPAEDIC SURGERY 05/01/19 Gayle Arce, DICTAPHONE TECHNICIAN, CUSTOMS IMPORT SPECIALIST-C 619 [facility] [address] [place] [phone] NURSE PRACTITIONER 03/03/20 Mendel Shah DPM [address] [place] [address] Consulting Physician PODIATRY/SURGERY 06/27/23 06/26/24 documented as of this encounter
--- OUTSIDE RECORDS SUMMARY | 2024-04-23 05:14 | XMS_ITS | Encounter Summary ---
Author Organization [facility] Address [address] [place] [address]. [place] [address] [place] [address] Care Team Providers Care Crester Name Role Phone Evaristo Allan MD Unavailable Unavailabl Raul Duran MD Unavailable Unavailabl Danny Lopes MD Unavailable [phone] Gayle Arce APRN, COOLING TOWER OPERATOR-C Unavailable Ti Bonilla MD Primary Care Provider Mendel Shah DPSallie Unavailable [phone] Reason for Visit * Reason Onset Date Comments Other 07/07/2023 Heart monitor Encounter Details Date Type Department Care Team ([facility] Contact Info) Description 07/07/2023 Telephone 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 Answer Entry Date Author Status No 11/17/2021 3:30 PM CDT Angela Mancuso RN Active documented in this encounter Progress Notes * [place] Deras LPN - 08/23/2023 1:57 PM CDT Etienne noted. Thanks * [place] Deras LPN - 08/23/2023 12:55 PM CDT He asked about his two week heart monitor? He is going to [place] sometime next month. Patient never received it. * Lula Jean-Baptiste, [employer] Fabrication Supervisor - 07/07/2023 2:49 PM CDT We have not been able to get in touch with patient to arrange the heart monitor. 07/06/2023 Unable to LVM, need consent 07/05/2023 Unable to LVM, need consent 07/01/2023 Unable to LVM, need consent documented in this encounter Plan of Treatment Upcoming Encounters Date Type Department Care Team (Late st Contact Info) Description 04/25/2024 11:00 AM PHYSICIAN EXECUTIVE Appointment [facility] [address] [place] [address] [place] [address] Ti Bonilla MD [address] [place] [phone] 05/23/2024 3:30 PM PHYSICIAN EXECUTIVE Office Visit [facility] [address] [facility] [place] [address] Jyoti Escobar MD [address] [place] [address] documented as of this encounter Visit Diagnoses Not on filedocumented in this encounter Care Teams Crester Relationship Specialty Start Date End Date Ti Bonilla MD [address] [place] [phone] PCP - General FAMILY PRACTICE 12/03/21 Evaristo Allan MD [place] [facility] Agent CARDIOVASCULAR DISEASE 08/19/16 Raul Santana MD CLINICAL CARDIAC ELECTROPHYSIOLOGY 06/16/17 Danny Blackwell MD [address] [place] [phone] ORTHOPAEDIC SURGERY 05/01/19 Gayle Arce, SENIOR ACCOUNT EXECUTIVE, COOLING TOWER OPERATOR-C [address] [place] [address] [address] [place] [address] NURSE PRACTITIONER 03/03/20 Mendel Shah DPM [address] [facility] [place] [address] Consulting Physician PODIATRY/SURGERY 06/27/23 06/26/24 documented as of this encounter
--- OUTSIDE RECORDS SUMMARY | 2024-04-23 05:14 | XMS_ITS | Encounter Summary ---
Author Organization [facility] Address [address] [place] [address]. 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 Not on [...] st Contact Info) Description 04/25/2024 11:00 AM VISUAL EDUCATION TEACHER Appointment [facility] [address] [place] [address] [place] [address] Ti Bonilla MD [address] [place] [phone] 05/23/2024 3:30 PM VISUAL EDUCATION TEACHER Office Visit [facility] [address] [facility] [place] [phone] Jyoti Escobar MD [address] [place] [address] documented as of this encounter Visit Diagnoses Not on filedocumented in this encounter Care Teams Ostrich Farm Worker Relationship Specialty Start Date End Date Ti Bonilla MD [address] [place] [phone] PCP - General FAMILY PRACTICE 12/03/21 Evaristo Allan MD [place] Para Educator CARDIOVASCULAR DISEASE 08/19/16 Raul Santana MD CLINICAL CARDIAC ELECTROPHYSIOLOGY 06/16/17 Danny Blackwell MD [address] [place] [address] ORTHOPAEDIC SURGERY 05/01/19 Gayle Arce, REMELT WORKER, CERTIFIED NURSE OPERATING ROOM-C 619 [facility] [address] [place] [address] NURSE PRACTITIONER 03/03/20 Mendel Shah DPM [address] [place] [address] Consulting Physician PODIATRY/SURGERY 06/27/23 06/26/24 documented as of this encounter
--- OUTSIDE RECORDS SUMMARY | 2024-04-23 05:15 | XMS_ITS | Encounter Summary ---
Author Organization [facility] Address [address] [place] [address]. [place] [address] [place] [address] Care Team Providers Care Automotive Maintenance Technician Name Role Phone Evaristo Allan MD Unavailable Unavailabl Eve Duran MD Unavailable Unavailabl e Danny Blackwell MD Unavailable [phone] Gayle Arce APRN, BARGE WORKER-C Unavailable Ti Bonilla MD Primary Care Provider Encounter Details Date Type Department Care Team (Late st Contact Info) Description 12/03/2021 8:49 AM CDT - 12/03/2021 11:59 PM CDT Hospital Encounter [facility] [address] [facility] [place] [address] Eve Beth, DPM [address] [place] [address] Discharge Disposition: Home or Self [...] 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 [address] [facility] [place] [address] Ti Bonilla MD [address] [place] [phone] 05/23/2024 3:30 PM SCIENTIFIC WRITER Office Visit [facility] [address] [place] [phone] Jyoti Escobar MD [address]19 [place], [place] [phone] documented as of this encounter Procedures Procedure [...] foot documented in this encounter Care Teams Automotive Maintenance Technician Relationship Specialty Start Date End Date Ti Bonilla MD [address] [place] [phone] PCP - General FAMILY PRACTICE 12/03/21 Evaristo Allan MD [place] Payroll Technician CARDIOVASCULAR DISEASE 08/19/16 Eve Santana MD CLINICAL CARDIAC ELECTROPHYSIOLOGY 06/16/17 Danny Blackwell MD [address] [place] [address] ORTHOPAEDIC SURGERY 05/01/19 Gayle Arce, BARBARA, BARGE WORKER-C [address] [phone] NURSE PRACTITIONER 03/03/20 documented as of this encounter
--- OUTSIDE RECORDS SUMMARY | 2024-04-23 05:15 | XMS_ITS | Encounter Summary ---
Author Organization [facility] Address [address] [place] [address]. [place], [place] [address] [place] [address] Care Team Providers Care Maintenance Mechanic Engine Name Role Phone Evaristo Allan MD Unavailable Unavailabl Raul Duran MD Unavailable Unavailabl Danny Lopes MD Unavailable [phone] Gayle Arce APRN, ORNAMENTAL IRON WORKER HELPER-C Unavailable Ti Bonilla MD Primary Care Provider Encounter Details Date Type Department Care Team (Latest Contact Info) Description 09/22/2022 2:59 PM CDT - 09/22/2022 11:59 PM CDT Hospital Encounter [facility] [address] [facility] [place] [address] Ti Bonilla MD [address] [place] [phone] Discharge Disposition: Home or Self Care [...] TRUEPLUS PEN NEEDLES 31G X [address] [facility] 01/19/2021 aspirin EC 81 MG tablet Take [...] st Contact Info) Description 04/25/2024 11:00 AM REMEDIAL MASSEUR Appointment [facility] [address] [place], [place] [address] [address] Ti Bonilla MD [address] [place] [phone] 05/23/2024 3:30 PM REMEDIAL MASSEUR Office Visit [facility] [address] [place] [phone] Jyoti Escobar MD [address] [place] [phone] (work) documented as of this encounter Procedures Procedure Name Priority Date/Time Associated Diagnosis Comments XR FOOT LT 3V Routine 09/22/2022 3:10 PM CDT Foot ulcer, left ([facility]/HCC HHS/HCC) documented in this encounter Results [...] foot documented in this encounter Care Teams Maintenance Mechanic Engine Relationship Specialty Start Date End Date Ti Bonilla MD 5 [place] [address] PCP - General FAMILY PRACTICE 12/03/21 Evaristo Allan MD [place] Real Estate Processor CARDIOVASCULAR DISEASE 08/19/16 Raul Santana MD CLINICAL CARDIAC ELECTROPHYSIOLOGY 06/16/17 Danny Blackwell MD 5 [place] [address] ORTHOPAEDIC SURGERY 05/01/19 Gayle Arce APRN, ORNAMENTAL IRON WORKER HELPER-C 619 [facility] 4P57 [place] [address] NURSE PRACTITIONER 03/03/20 documented as of this encounter
--- OUTSIDE RECORDS SUMMARY | 2024-04-23 05:15 | XMS_ITS | Encounter Summary ---
Author Organization [facility] Address [address] [place] [address]. [place], [place] [address] [place] [address] Care Team Providers Care Cylinder Steamer Name Role Phone Evaristo Allan MD Unavailable Unavailabl Raul Duran MD Unavailable Unavailabl Danny Lopes MD Unavailable [phone] Gayle Arce APRN, DIRECTOR MEDICARE SALES-C Unavailable [phone] Ti Bonilla MD Primary Care Provider Encounter [...] st Contact Info) Description 04/25/2024 11:00 AM LINUX NETWORK ENGINEER Appointment [facility] [address] [place] [address] [place] [address] Ti Bonilla MD [address] [place] [phone] 05/23/2024 3:30 PM LINUX NETWORK ENGINEER Office Visit [facility] [place] [phone] Jyoti Escobar MD [address] [place] [phone] documented as of this encounter Visit Diagnoses Not on filedocumented in this encounter Care Teams Cylinder Steamer Relationship Specialty Start Date End Date Ti Bonilla MD [address] [place] [phone] PCP - General FAMILY PRACTICE 12/03/21 Evaristo Allan MD [place] Radio Director CARDIOVASCULAR DISEASE 08/19/16 Raul Santana MD CLINICAL CARDIAC ELECTROPHYSIOLOGY 06/16/17 Danny Blackwell MD 5 [place] [address] ORTHOPAEDIC SURGERY 05/01/19 Gayle Arce, BARBARA, DIRECTOR MEDICARE SALES-C 6[address] [facility] 47 [place] [phone] NURSE PRACTITIONER 03/03/20 documented as of this encounter
--- OUTSIDE RECORDS SUMMARY | 2024-04-23 05:15 | XMS_ITS | Encounter Summary ---
Author Organization [facility] Address [address] [place] [address]. 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 [address] [facility] [place] [address] Jyoti Escobar MD [address] [place] [phone] documented as of this encounter Visit Diagnoses Not on filedocumented in this encounter Care Teams Mail Distribution Clerk Relationship Specialty Start Date End Date Ti Bonilla MD [address] [place] [phone] PCP - General FAMILY PRACTICE 12/03/21 Evaristo Allan MD [place] Bailiff CARDIOVASCULAR DISEASE 08/19/16 Raul Santana MD CLINICAL CARDIAC ELECTROPHYSIOLOGY 06/16/17 Danny Blackwell MD 725 [place] [address] ORTHOPAEDIC SURGERY 05/01/19 Gayle Arce, ANODIC TREATER, CLERICAL SECRETARY-C [address] [phone] NURSE PRACTITIONER 03/03/20 documented as of this encounter
--- OUTSIDE RECORDS SUMMARY | 2024-04-23 05:15 | XMS_ITS | Encounter Summary ---
Author Organization [facility] Address [address] [place] [address]. [place], [place] [address] [place] [address] Care Team Providers Care General Practitioner Name Role Phone Evaristo Allan MD Unavailable Unavailabl Raul Duran MD Unavailable Unavailabl Danny Lopes MD Unavailable [phone] Gayle Arce APRN, SIGNAL INTELLIGENCE ANALYST-C Unavailable [phone] Ti Bonilla MD Primary Care Provider Encounter [...] Contact Info) Description 04/25/2024 11:00 AM SENIOR CONSTRUCTION ESTIMATOR Appointment [facility] [address] [place] [address] [place] [address] Ti Bonilla MD [address] [place] [phone] 05/23/2024 3:30 PM SENIOR CONSTRUCTION ESTIMATOR Office Visit [facility] [place] [phone] Jyoti Escobar MD [address] [place] [phone] documented as of this encounter Visit Diagnoses Not on filedocumented in this encounter Care Teams General Practitioner Relationship Specialty Start Date End Date Ti Bonilla MD [address] [place] [phone] PCP - General FAMILY PRACTICE 12/03/21 Evaristo Allan MD [place] Bead Wrapper CARDIOVASCULAR DISEASE 08/19/16 Raul Santana MD CLINICAL CARDIAC ELECTROPHYSIOLOGY 06/16/17 Danny Blackwell MD 5 [place] [address] ORTHOPAEDIC SURGERY 05/01/19 Gayle Arce, BARBARA, SIGNAL INTELLIGENCE ANALYST-C 6[address] [facility] 47 [place] [phone] NURSE PRACTITIONER 03/03/20 documented as of this encounter
--- OUTSIDE RECORDS SUMMARY | 2024-04-23 05:15 | XMS_ITS | Encounter Summary ---
Author Organization [facility] Address [address] [place] [address]. [place] [address] [place] [address] Care Team Providers Care Handbag Parts Cutter Name Role Phone Evaristo Allan MD Unavailable Unavailabl Raul Duran MD Unavailable Unavailabl Danny Lopes MD Unavailable [phone] Gayle Arce APRN, SKILLED TRADES TEACHER-C Unavailable Ti Bonilla MD Primary Care Provider Reason for Visit * Reason Onset Date Comments Prior Authorization 01/27/2022 Encounter Details Date Type Department Care Team (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 Did call Evaristo to see if his Insurance has changed. documented in this encounter Plan of Treatment Upcoming Encounters Date Type Department Care Team (Late st Contact Info) Description 04/25/2024 11:00 AM OUTBOARD MOTORBOAT RIGGER Appointment [facility] [address] [place] [address] [place] [address] Ti Bonilla MD [address] [place] [phone] 05/23/2024 3:30 PM OUTBOARD MOTORBOAT RIGGER Office Visit [facility] [address] [place] [address] [place] [address] Jyoti Escobar MD [address] [place] [address] documented as of this encounter Visit Diagnoses Not on filedocumented in this encounter Care Teams Handbag Parts Cutter Relationship Specialty Start Date End Date Ti Bonilla MD [address] [place] [phone] PCP - General FAMILY PRACTICE 12/03/21 Evaristo Allan MD [place] Gas Operator CARDIOVASCULAR DISEASE 08/19/16 Raul Santana MD CLINICAL CARDIAC ELECTROPHYSIOLOGY 06/16/17 Danny Blackwell MD [address] [place] [address] [phone] ORTHOPAEDIC SURGERY 05/01/19 Gayle Arce APRN, SKILLED TRADES TEACHER-C [address] [place] [address] 4P57 [place] [phone] NURSE PRACTITIONER 03/03/20 documented as of this encounter
--- OUTSIDE RECORDS SUMMARY | 2024-04-23 05:15 | XMS_ITS | Encounter Summary ---
Author Organization [facility] Address [address] [place] [address]. [place], [place] [address] [place] [address] Care Team Providers Care 411 Directory Assistance Operator Name Role Phone Evaristo Allan MD Unavailable Unavailabl Raul Duran MD Unavailable Unavailabl Danny Lopes MD Unavailable [phone] Gayle Arce APRN, HEALTH PHYSICIST-C Unavailable Ti Bonilla MD Primary Care Provider Encounter Details Date Type Department Care Team (Late st Contact Info) Description 10/13/2022 9:30 AM CDT - 10/13/2022 11:59 PM CDT Hospital Encounter [facility] [address] [place] [address] Olivia [place], SPRING LAYER [address] [place] [phone] Discharge Disposition: Home or Self Care (Routine [...] 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 [address] [facility] [place] [address] Ti Bonilla MD [address] [place] [phone] 05/23/2024 3:30 PM STAFFING OPERATIONS MANAGER Office Visit [facility] [place] [phone] Jyoti Escobar MD 619 [place] [address] documented as of this encounter [...] CDT documented in this encounter Care Teams 411 Directory Assistance Operator Relationship Specialty Start Date End Date Ti Bonilla MD [address] [place] [phone] PCP - General FAMILY PRACTICE 12/03/21 Evaristo Allan MD [place] Ocean Forwarder CARDIOVASCULAR DISEASE 08/19/16 Raul Santana MD CLINICAL CARDIAC ELECTROPHYSIOLOGY 06/16/17 Danny Blackwell MD 5 [place] [address] ORTHOPAEDIC SURGERY 05/01/19 Gayle Arce APRN, HEALTH PHYSICIST-C 619 [facility] 4P57 [place] [phone] NURSE PRACTITIONER 03/03/20 documented as of this encounter
--- OUTSIDE RECORDS SUMMARY | 2024-04-23 05:15 | XMS_ITS | Encounter Summary ---
Author Organization [facility] Address [address] [place] [address]. 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 Not on [...] st Contact Info) Description 04/25/2024 11:00 AM SWITCHMAN Appointment [facility] [address] [place] [address] [place] [address] Ti Bonilla MD [address] [place] [phone] 05/23/2024 3:30 PM SWITCHMAN Office Visit [facility] [place] [address] Jyoti Escobar MD [address] [place] [address] documented as of this encounter Visit Diagnoses Not on filedocumented in this encounter Care Teams Shooter Helper Relationship Specialty Start Date End Date Ti Bonilla MD [address] [place] [phone] PCP - General FAMILY PRACTICE 12/03/21 Evaristo Allan MD [place] Beverage Inspection Machine Tender CARDIOVASCULAR DISEASE 08/19/16 Raul Santana MD CLINICAL CARDIAC ELECTROPHYSIOLOGY 06/16/17 Danny Blackwell MD [address] [place] [address] ORTHOPAEDIC SURGERY 05/01/19 Gayle Arce, BARBARA, ENTRY REP-C [address] [phone] NURSE PRACTITIONER 03/03/20 documented as of this encounter
--- OUTSIDE RECORDS SUMMARY | 2024-04-23 05:15 | XMS_ITS | Encounter Summary ---
Author Organization [facility] Address [address] [place] [address]. [place], [place] [address] [place] [address] Care Team Providers Care Test Case Developer Name Role Phone Evaristo Allan MD Unavailable Unavailabl Raul Duran MD Unavailable Unavailabl e Danny Blackwell MD Unavailable [phone] Gayle Arce APRN, .NET ARCHITECT-C Unavailable Ti Bonilla MD Primary Care Provider [phone] Reason for Visit * Reason Comments Lab (SCAN) Encounter Details Date Type Department Care Team (Late st Contact Info) Description 01/14/2022 [facility] [address] [place] [phone] Scanned, Documents Lab (SCAN) Social History [...] 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 Not [...] st Contact Info) Description 04/25/2024 11:00 AM FULL CHARGE BOOKKEEPER Appointment [facility] [address] [place] [address] Ti Bonilla MD [address] [place] [phone] 05/23/2024 3:30 PM FULL CHARGE BOOKKEEPER Office Visit [facility] [address] [place] [phone] Jyoti Escobar MD [address] [place] [phone] documented as of this encounter Procedures Procedure [...] on filedocumented in this encounter Care Teams Test Case Developer Relationship Specialty Start Date End Date Ti Bonilla MD [address] [place] [phone] PCP - General FAMILY PRACTICE 12/03/21 Evaristo Allan MD [place] Elevator Repairer CARDIOVASCULAR DISEASE 08/19/16 Raul Santana MD CLINICAL CARDIAC ELECTROPHYSIOLOGY 06/16/17 Danny Blackwell MD 5 [place] [address] ORTHOPAEDIC SURGERY 05/01/19 Gayle Arce APRN, .NET ARCHITECT-C 6[address] [facility] 4P57 [place] [phone] NURSE PRACTITIONER 03/03/20 documented as of this encounter
--- OUTSIDE RECORDS SUMMARY | 2024-04-23 05:15 | XMS_ITS | Encounter Summary ---
Author Organization [facility] Address [address] [place] [address]. 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 [address] [place] [address] [place] [address] Ti Bonilla MD [address] [place] [phone] 05/23/2024 3:30 PM FACTORY PROCESS WORKERS Office Visit [facility] [place] [phone] Jyoti Escobar MD [address] [place] [phone] documented as of this encounter Visit Diagnoses Not on filedocumented in this encounter Care Teams Answerer Relationship Specialty Start Date End Date Ti Bonilla MD [address] [place] [phone] PCP - General FAMILY PRACTICE 12/03/21 Evaristo Allan MD [place] Data Analyst Etl Developer CARDIOVASCULAR DISEASE 08/19/16 Raul Santana MD CLINICAL CARDIAC ELECTROPHYSIOLOGY 06/16/17 Danny Blackwell MD 5 [place] [address] ORTHOPAEDIC SURGERY 05/01/19 Gayle Arce, BARBARA, VICE ADMIRAL-C 619 E [facility] 47 [place] [phone] NURSE PRACTITIONER 03/03/20 documented as of this encounter
--- OUTSIDE RECORDS SUMMARY | 2024-04-23 05:15 | XMS_ITS | Encounter Summary ---
Author Organization [facility] Address [address] [place] [address]. [place], [place] [address] [place], [place] [phone] Care Team Providers Care Athletic Field Custodian Name Role Phone Evaristo Allan MD Unavailable Unavailabl e Max, Eve Reyes MD Unavailable Unavailabl e , Danny Galo MD Unavailable [phone] Gayle Arce APRN, STAGE SET DESIGNER-C Unavailable [phone] Ti Bonilla MD Primary Care Provider Reason for Referral * Imaging (Routine) - Closed Specialty Diagnoses / Procedures Referred By Charito ledbetter Referred To Contact RADIOLOGY Diagnoses 3+ pitting edema Acute deep vein thrombosis (DVT) of calf muscle vein of right lower extremity (CMS/HCC HHS/HCC) Procedures USV KEVIN DUPLEX LOW EXT RT Eve Beth DPM [address] [place] [address] Phone: tel: fax: Referral ID Status Reason Start Date Expiration Date Visits Re quested Visits Authorized [id number] Closed 12/31/2021 01/30/2023 1 1 Reason for Visit * Imaging (Routine) - Closed Specialty Diagnoses / Procedures Referred By Contac t Referred To Contact RADIOLOGY Diagnoses 3+ pitting edema Acute deep vein thrombosis (DVT) of calf muscle vein of right lower extremity (CMS/HCC HHS/HCC) Procedures USV KEVIN DUPLEX LOW EXT RT Eve Beth DPM [address] [place] [phone] Phone: tel: fax: Referral ID Status Reason Start Date Expiration Date Visits Re quested Visits Authorized [id number] Closed 12/31/2021 01/30/2023 1 1 Encounter Details Date Type Department Care Team (Late st Contact Info) Description 01/22/2022 8:16 AM CDT - 01/22/2022 11:59 PM CDT Hospital Encounter [facility] [address] [place] [address] Eve Beth, DPM [address] [place] [address] Discharge Disposition: Home or Self [...] st Contact Info) Description 04/25/2024 11:00 AM SCRIPT DEVELOPER Appointment [facility] [address] [place] [address] [place] [address] Ti Bonilla MD [address] [place] [phone] 05/23/2024 3:30 PM SCRIPT DEVELOPER Office Visit [facility] [place] [address] Jyoti Escobar MD [address] [place] [address] [phone] documented as of this encounter Procedures Procedure Name Priority Date/Time Associated Diagnosis Comments USV KEVIN DUPLEX LOW EXT RT Routine 01/22/2022 8:25 AM CDT 3+ pitting edema Acute deep vein thrombosis (DVT) of calf muscle vein of right lower extremity ([facility]) documented in this encounter Results * USV [...] Buenrostro MD, 01/22/2022 8:48 AM Eve Beth [facility] Final Resul t documented in this encounter Visit Diagnoses Diagnosis 3+ pitting edema Acute deep vein thrombosis (DVT) of calf muscle vein of right lower extremity (CMS/HCC HHS/HCC) documented in this encounter Care Teams Athletic Field Custodian Relationship Specialty Start Date End Date Ti Bonilla MD [address] [place] [phone] PCP - General FAMILY PRACTICE 12/03/21 Evaristo Allan MD [place] Reporting Developer CARDIOVASCULAR DISEASE 08/19/16 Eve Santana MD CLINICAL CARDIAC ELECTROPHYSIOLOGY 06/16/17 Danny Blackwell MD 5 [place] [address] ORTHOPAEDIC SURGERY 05/01/19 Gayle Arce APRN, STAGE SET DESIGNER-C [address] [phone] NURSE PRACTITIONER 03/03/20 documented as of this encounter
--- OUTSIDE RECORDS SUMMARY | 2024-04-23 05:15 | XMS_ITS | Encounter Summary ---
Author Organization [facility] Address [address] [place] [address]. 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 [address] [place] [address] [place] [address] Ti Bonilla MD [address] [place] [phone] 05/23/2024 3:30 PM PROCUREMENT ANALYST Office Visit [facility] [place] [phone] Jyoti Escobar MD [address] [place] [phone] documented as of this encounter Visit Diagnoses Not on filedocumented in this encounter Care Teams Aligning Checker Relationship Specialty Start Date End Date Ti Bonilla MD [address] [place] [phone] PCP - General FAMILY PRACTICE 12/03/21 Evaristo Allan MD [place] Watershed Tender CARDIOVASCULAR DISEASE 08/19/16 Raul Santana MD CLINICAL CARDIAC ELECTROPHYSIOLOGY 06/16/17 Danny Blackwell MD 5 [place] [address] ORTHOPAEDIC SURGERY 05/01/19 Gayle Arce, BARBARA, AVIATION MEDICINE SPECIALIST-C [address] [facility] 47 [place] [phone] NURSE PRACTITIONER 03/03/20 documented as of this encounter
--- OUTSIDE RECORDS SUMMARY | 2024-04-23 05:15 | XMS_ITS | Encounter Summary ---
Author Organization [facility] Address [address] [place] [address]. [place] [address] [place] [address] Care Team Providers Care Tool And Die Repairer Name Role Phone Evaristo Allan MD Unavailable Unavailabl Raul Duran MD Unavailable Unavailabl Danny Lopes MD Unavailable [phone] Gayle Arce APRN, HEALTH PROGRAM MANAGER-C Unavailable Ti Bonilla MD Primary Care Provider Reason for Visit * Reason Onset Date Comments Other 03/03/2022 Pradaxa Encounter Details Date Type Department Care Team (Late st Contact Info) Description 03/03/2022 Telephone [facility] [address] [place] [address] Evaristo Allan MD Other (Pradaxa) [...] our office back to discuss his question RTING LEAD * Janell Jade - 03/17/2022 1:15 PM CST Evaristo called would like a call back. Please advise below RTING LEAD * Nalini Orlando RN - 03/04/2022 3:38 PM CST Attempted to return call to patient, no answer RTING LEAD * Su Clay - 03/03/2022 3:49 PM CST Pt called requesting a call back to discuss a letter he has received regarding his Pradaxa. RTING LEAD documented in this encounter Plan of Treatment Upcoming Encounters Date Type Department Care Team (Late st Contact Info) Description 04/25/2024 11:00 AM REPORTING LEAD Appointment [facility] [address] [place] [address] [place] [address] Ti Bonilla MD [address] [place] [phone] 05/23/2024 3:30 PM REPORTING LEAD Office Visit [facility] [place] [phone] Jyoti Escobar MD [address] [place] [address] documented as of this encounter Visit Diagnoses Not on filedocumented in this encounter Care Teams Tool And Die Repairer Relationship Specialty Start Date End Date Ti Bonilla MD [address] [place] [phone] PCP - General FAMILY PRACTICE 12/03/21 Evaristo Allan MD [place] Structural Test Engineer CARDIOVASCULAR DISEASE 08/19/16 Raul Santana MD CLINICAL CARDIAC ELECTROPHYSIOLOGY 06/16/17 Danny Blackwell MD [address] [place] [address] ORTHOPAEDIC SURGERY 05/01/19 Gayle Arce APRN, HEALTH PROGRAM MANAGER-C [address] [place] [address] [address] [place] [address] NURSE PRACTITIONER 03/03/20 documented as of this encounter
--- OUTSIDE RECORDS SUMMARY | 2024-04-23 05:15 | XMS_ITS | Encounter Summary ---
Author Organization [facility] Address [address] [place] [address]. [place] [address] [place] [address] Care Team Providers Care Motel Keeper Name Role Phone Evaristo Allan MD Unavailable Unavailabl Raul Duran MD Unavailable Unavailabl e Danny Blackwell MD Unavailable [phone] Gayle Arce APRN, ACCOUNTANT ASSISTANT-C Unavailable Ti Bonilla MD Primary Care Provider [phone] Reason for Visit * Reason Onset Date Comments Record Request 12/16/2021 Encounter Details Date Type Department Care Team (Late st Contact Info) Description 12/16/2021 Telephone [facility] [place] [address] [place] [address], [place] [address] Kyle Jeffers, DPSallie [address] [place] [address] Record Request Social History Tobacco Use [...] 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 Not on [...] Contact Info) Description 04/25/2024 11:00 AM NETWORK RELAY TESTER Appointment [facility] [address] [place] [address] [place] [address] Ti Bonilla MD [address] [place] [phone] 05/23/2024 3:30 PM NETWORK RELAY TESTER Office Visit [facility] [place] [phone] Jyoti Escobar MD [address] [place], [place] [phone] documented as of this encounter Visit Diagnoses Not on filedocumented in this encounter Care Teams Motel Keeper Relationship Specialty Start Date End Date Ti Bon[place] MD [address] [place] [phone] PCP - General FAMILY PRACTICE 12/03/21 Evaristo Allan MD [place] Airflight Attendants Supervisor CARDIOVASCULAR DISEASE 08/19/16 Raul Santana MD CLINICAL CARDIAC ELECTROPHYSIOLOGY 06/16/17 Danny Blackwell MD [address] [place] [address] ORTHOPAEDIC SURGERY 05/01/19 Gayle Arce APRN, ACCOUNTANT ASSISTANT-C [address] [facility] [address] [place] [phone] NURSE PRACTITIONER 03/03/20 documented as of this encounter
--- OUTSIDE RECORDS SUMMARY | 2024-04-23 05:15 | XMS_ITS | Encounter Summary ---
Author Organization [facility] Address [address] [place] [address]. [place] [address] [place] [address] Care Team Providers Care Epoxy Coatings Installer Name Role Phone Elza Allan MD Unavailable Unavailabl Raul Duran MD Unavailable Unavailabl Danny Lopes MD Unavailable [phone] Gayle Arce APRN CIGARETTE TESTER-C Unavailable Ti Bonilla MD Primary Care Provider Encounter Details Date Type Department Care Team (Late st Contact Info) Description 01/11/2022 Orders Only [facility] [address] [place] [address] Myah Handley NP Social History [...] st Contact Info) Description 04/25/2024 11:00 AM FABRIC NORMALIZER Appointment [facility] [address] [place] [address] Ti Bonilla MD [address] [place] [phone] 05/23/2024 3:30 PM FABRIC NORMALIZER Office Visit [facility] [address] [place] [phone] Jyoti Escobar MD [address] [place] [address] documented as of this encounter Results * ELECTROCARDIOGRAM (01/28/2022 9:28 AM CDT) 01/28/2022 9:28 AM CDT Narrative [facility] - 02/01/2022 4:29 PM CDT ? [facility], [facility] ?[address] [place], [place] ??[address] ? Test Date: ?2022-01-28 Pat Name: ? ELZA MCKEON ? Department: ?? 105 ? Room: ? Gender: ? Male ? Epoxy Coatings Installer: ?? : ?1960 ? Requested By: MARITO DAVIS Order Number: [id number] ?Reading MD: ?? Arnel Murillo ? Measurements Intervals ?[place] ? Rate: ? 82 ? P: ?69 [place]: ? 147 ?QRS: ?46 QRSD: ? 123 ?T: ?12 QT: ? 385 ? QTc: ?450 ? Interpretive Statements SINUS RHYTHM RIGHT BUNDLE BRANCH BLOCK Procedure Note Arnel Murillo MD - 02/01/2022 [facility], [place] [address] [place] [address] Test Date: 2022-01-28 Pat Name: [facility] Department: 105 Room: Gender: Male Epoxy Coatings Installer: : 1960 Requested By: MARITO DAVIS Order Number: [id number] Jose Antonio MD: Arnel Murillo Measurements Intervals [place] Rate: 82 P: 69 [place]: 147 QRS: 46 QRSD: 123 T: 12 QT: 385 QTc: 450 Interpretive Statements SINUS RHYTHM RIGHT BUNDLE BRANCH BLOCK us Marito Davis MD PROCEDURES-ORDERABLE NO CHARGE Final Result [facility] documented in this encounter Visit Diagnoses Diagnosis Paroxysmal atrial fibrillation (CMS/HCC HHS/HCC)- Primary Atrial fibrillation Paroxysmal atrial fibrillation (CMS/HCC HHS/HCC) Atrial fibrillation documented in this encounter Care Teams Epoxy Coatings Installer Relationship Specialty Start Date End Date Ti Bonilla MD [address] [place] [phone] PCP - General FAMILY PRACTICE 12/03/21 Elza Allan MD [place] Film Sound Coordinator CARDIOVASCULAR DISEASE 08/19/16 Raul Santana MD CLINICAL CARDIAC ELECTROPHYSIOLOGY 06/16/17 Danny Blackwell MD 5 [place] [address] ORTHOPAEDIC SURGERY 05/01/19 Gayle Arce, POULTRY GRADER, CIGARETTE TESTER-C [address] [facility] [address] [place] [phone] NURSE PRACTITIONER 03/03/20 documented as of this encounter
--- OUTSIDE RECORDS SUMMARY | 2024-04-23 05:15 | XMS_ITS | Encounter Summary ---
Author Organization [facility] Address [address] [place] [address]. [place], [place] [address] [place] [address] Care Team Providers Care Milling Planer Operator Name Role Phone Evaristo Allan MD Unavailable Unavailabl Raul Duran MD Unavailable Unavailabl Danny Lopes MD Unavailable [phone] Gayle Arce APRN, PRODUCTION SPECIALIST-C Unavailable Ti Bonilla MD Primary Care Provider Encounter Details Date Type Department Care Team (Late st Contact Info) Description 10/15/2022 Orders Only [facility] [address] [facility] [place] [address] Daniel Holman, PA 5 [place] [address] Social History Tobacco Use Types [...] st Contact Info) Description 04/25/2024 11:00 AM TISSUE COORDINATOR Appointment [facility] [address] [place] [address] Ti Bonilla MD [address] [place] [phone] 05/23/2024 3:30 PM TISSUE COORDINATOR Office Visit [facility] [address] [place] [address] Jyoti Escobar MD [address] [place] [address] documented as of this encounter Results * (ABNORMAL) COMPREHENSIVE METABOLIC PANEL (10/15/2022 10:08 AM CDT) SODIUM S/P/B 141 136 - 145 MMOL/L 10/15/2022 10:35 AM CDT [facility] POTASSIUM S/P/B 4.2 3.5 - 5.1 MMOL/L 10/15/2022 10:35 AM CDT [facility] CHLORIDE S/P/B 103 98 - 107 MMOL/L 10/15/2022 10:35 AM CDT [facility] CO2 33.2(H) 21.0 - 32.0 MMOL/L 10/15/2022 10:35 AM CDT [facility] GLUCOSE 206(H) 70 - 99 MG/DL 10/15/2022 10:35 AM CDT [facility] Comment: FASTING GLUCOSE 100 TO 125 MG/DL IS CONSISTENT WITH IMPAIRED FASTING GLUCOSE. FASTING GLUCOSE >125 MG/DL IS CONSISTENT WITH DIABETES. RANDOM GLUCOSE >200 MG/DL WITH HYPERGLYCEMIC SYMPTOMS IS CONSISTENT WITH DIABETES. PER ADA GUIDELINES BUN 23 6 - 24 MG/DL 10/15/2022 10:35 AM CDT [facility] CREATININE S/P/B 0.99 0.70 - 1.30 MG/DL 10/15/2022 10:35 AM CDT [facility] CALCIUM S/P/B 9.2 8.4 - 10.5 MG/DL 10/15/2022 10:35 AM CDT [facility] BILIRUBIN TOTAL S/P/B 0.3 0.2 - 1.0 MG/DL 10/15/2022 10:35 AM CDT [facility] Comment: THIS ASSAY IS NOT RECOMMENDED FOR PATIENTS UNDERGOING TREATMENT WITH ELTROMBOPAG DUE TO THE POTENTIAL FOR FALSELY ELEVATED RESULTS. ALKALINE PHOSPHATASE S/P/B 106 45 - 115 U/L 10/15/2022 10:35 AM CDT [facility] AST 27 15 - 37 U/L 10/15/2022 10:35 AM CDT [facility] ALT 50 16 - 63 U/L 10/15/2022 10:35 AM CDT [facility] TOTAL PROTEIN S/P/B 7.1 6.4 - 8.2 G/DL 10/15/2022 10:35 AM CDT [facility] ALBUMIN S/P/B 2.9(L) 3.4 - 5.0 G/DL 10/15/2022 10:35 AM CDT [facility] ANION GAP 4.8(L) 5.0 - 15.0 MMOL/L 10/15/2022 10:35 AM CDT [facility] OSMOLALITY (CALC) 302 MOSM/KG 023 10:35 AM CDT [facility] Comment:REFERENCE RANGE NOT ESTABLISHED GFR ESTIMATE 86(L) >89 ML/MIN/1. 73 M2 10/15/2022 10:35 AM CDT [facility] GFR NOTES GFR REFERENCE S: 10/15/2022 10:35 AM CDT [facility] Comment: THE ESTIMATED GFR IS [...] CDT us [facility] Final Result [facility] [address] [address], * (ABNORMAL) HEMOGLOBIN, GLYCOSYLATED (10/15/2022 10:08 AM CDT) HGB A1C 9.7(H) <5.7 % 10/15/2022 11:03 AM CDT [facility] Comment: 5.7 TO 6.4% INCREASED RISK OF DIABETES > OR = 6.5% CONSISTENT WITH DIABETES PER ADA GUIDELINES ESTIMATED AVG GLUCOSE 232(H) 70 - 140 MG/DL 10/15/2022 11:03 AM CDT [facility] 10/15/2022 10:0 8 AM CDT [facility] Final Result Performing Organization Address [facility]/ZIP Co de Phone Number [facility] [place] [phone], * PROTIME/INR, VENOUS (10/15/2022 10:08 AM CDT) PROTIME 12.0 9.4 - 12.5 SEC 10/15/2022 10:21 AM CDT [facility] INR 1.0 0.8 - 1.0 10/15/2022 10:21 AM CDT [facility] 10/15/2022 10:0 8 AM CDT [facility] Final Result Performing Organization Address [facility] Co de Phone Number [facility] [address] [place] [phone], * (ABNORMAL) CBC W/DIFF AUTOMATED (10/15/2022 10:08 AM CDT) WBC 5.14 4.00 - 10.80 x10'3/uL 10/15/2022 10:13 AM CDT [facility] RBC 4.63 4.50 - 6.10 x10'6/uL 10/15/2022 10:13 AM CDT [facility] HGB 12.1(L) 13.0 - 18.0 G/DL 10/15/2022 10:13 AM CDT [facility] HCT 39.7 37.0 - 52.0 % 10/15/2022 10:13 AM CDT [facility] MCV 85.7 78.0 - 100.0 FL 10/15/2022 10:13 AM CDT [facility] MCH 26.1(L) 27.0 - 31.0 PG 10/15/2022 10:13 AM CDT [facility] MCHC 30.5(L) 33.0 - 36.0 G/DL 10/15/2022 10:13 AM CDT [facility] RDW 15.4(H) 11.5 - 14.5 % 10/15/2022 10:13 AM CDT [facility] PLT 242 150 - 350 x10'3/uL 10/15/2022 10:13 AM CDT [facility] MPV 11.0(H) 7.4 - 10.4 FL 10/15/2022 10:13 AM CDT [facility] CBC COMMENT NORMAL REFERENCE RANGE NOT ESTABLISHED FOR THE PROPORTIONAL LEUKOCYTE DIFFERENTIAL. 10/15/2022 10:13 AM CDT [facility] NEUTROPHILS % 44.3 % 10/15/2022 10:13 AM CDT [facility] LYMPHOCYTES % 36.8 % 10/15/2022 10:13 AM CDT [facility] MONOCYTES % 14.0 % 10/15/2022 10:13 AM CDT [facility] EOSINOPHILS % 3.7 % 10/15/2022 10:13 AM CDT [facility] BASOPHILS % 1.0 % 10/15/2022 10:13 AM CDT [facility] IMMATURE GRANS % 0.2 % 10/16/19 10:13 AM CDT [facility] NRBC 0.0 % 10/15/2022 10:13 AM CDT [facility] ABS. NEUTROPHILS 2.28 1.60 - 8.30 x10'3/uL 10/15/2022 10:13 AM CDT [facility] ABS. LYMPHOCYTES 1.89 0.80 - 4.70 x10'3/uL 10/15/2022 10:13 AM CDT [facility] ABS. MONOCYTES 0.72 0.00 - 1.50 x10'3/uL 10/15/2022 10:13 AM CDT [facility] ABS. EOSINOPHILS 0.19 0.00 - 0.40 x10'3/uL 10/15/2022 10:13 AM CDT [facility] ABS. BASOPHILS 0.05 0.00 - 0.20 x10'3/uL 10/15/2022 10:13 AM CDT [facility] ABS. IMMATURE GRANULOCYTES 0.01 0.00 - 0.03 x10'3/uL 10/15/2022 10:13 AM CDT [facility] ABS. NUCLEATED RBC'S 0.00 0.00 x10'3/uL 10/15/2022 10:13 AM CDT [facility] 10/15/2022 10:0 8 AM CDT [facility] Final Result [facility] [address] [place] [address], documented in this encounter Visit Diagnoses Diagnosis Altered mental status- Primary Paroxysmal A-fib ([facility] HHS/HCC) Atrial fibrillation Type II diabetes mellitus ([facility]) Type II or unspecified type diabetes mellitus without mention of complication, not stated as uncontrolled documented in this encounter Care Teams Milling Planer Operator Relationship Specialty Start Date End Date Ti Bonilla MD [address] [place] [phone] PCP - General FAMILY PRACTICE 12/03/21 Evaristo Allan MD [place] Implementation Specialist Payroll CARDIOVASCULAR DISEASE 08/19/16 Raul Santana MD CLINICAL CARDIAC ELECTROPHYSIOLOGY 06/16/17 Danny Blackwell MD 5 [place] [address] ORTHOPAEDIC SURGERY 05/01/19 Gayle Arce, BARBARA, PRODUCTION SPECIALIST-C [address] [facility] [address] [place] [address] NURSE PRACTITIONER 03/03/20 documented as of this encounter
--- OUTSIDE RECORDS SUMMARY | 2024-04-23 05:15 | XMS_ITS | Encounter Summary ---
Author Organization [facility] Address [address] [place] [address]. [place] [address] [place] [address] Care Team Providers Care Registry Np Name Role Phone Evaristo Allan MD Unavailable Unavailabl Raul Duran MD Unavailable Unavailabl e Danny Blackwell MD Unavailable [phone] Gayle Arce APRN, CLINICAL TRIAL COORDINATOR-C Unavailable Ti Bonilla MD Primary Care Provider Encounter Details Date Type Department Care Team (Late st Contact Info) Description 05/07/2022 Orders Only [facility] [address] [place] [address] Evaristo Allan MD Social History [...] st Contact Info) Description 04/25/2024 11:00 AM DIGITAL SALES ASSISTANT Appointment [facility] [place] [address] Ti Bonilla MD [address] [place] [phone] 05/23/2024 3:30 PM DIGITAL SALES ASSISTANT Office Visit [facility] [address] [place] [address] Jyoti Escobar MD [address] [place] [address] documented as of this encounter Visit Diagnoses Diagnosis Paroxysmal atrial fibrillation ([facility]/HCC [facility]/HCC)- Primary Atrial fibrillation Coronary artery disease involving [place]etm[place] coronary artery of sleetmute heart, unspecified whether angina present Essential hypertension Unspecified essential hypertension documented in this encounter Care Teams Registry Np Relationship Specialty Start Date End Date Ti Bonilla MD [address] [place], [place] [phone] PCP - General FAMILY PRACTICE 12/03/21 Evaristo Allan MD [place] Management Trainee Marketing CARDIOVASCULAR DISEASE 08/19/16 Raul Santana MD CLINICAL CARDIAC ELECTROPHYSIOLOGY 06/16/17 Danny Blackwell MD 5 [place] [address] ORTHOPAEDIC SURGERY 05/01/19 Gayle Arce, NUTRITION AIDE, CLINICAL TRIAL COORDINATOR-C [address]19 [facility] [address] [place] [address] NURSE PRACTITIONER 03/03/20 documented as of this encounter
--- OUTSIDE RECORDS SUMMARY | 2024-04-23 05:15 | XMS_ITS | Encounter Summary ---
Author Organization [facility] Address [address] [place] [address]. [place], [place] [address] [place] [address] Care Team Providers Care Php Software Engineer Name Role Phone Evaristo Allan MD Unavailable Unavailabl e ScheEve staley MD Unavailable Unavailabl e [place], Danny Galo MD Unavailable [phone] Gayle Arce APRN, TIME STUDY ENGINEER-C Unavailable Ti Zamora MD Primary Care Provider [phone] Reason for Visit * Reason Comments Foot Pain New Patient, Pt is h ere for possible heel spur, Right and Bilateral swelling in ankles and feet. 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 CARDIAC CATHETERIZATION 11/13/2018 ??? FRACTURE SURGERY ??? 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 HERNIA REPAIR ??? JOINT REPLACEMENT ??? KNEE ARTHROPLASTY Bilateral ??? LITHOTRIPSY ??? XA ABLATION 05/19/2016 ??? XA CORONARY INTERVENTION 03/24/2018 TIRE CARE MANAGER PCI-mid RCA Social History Socioeconomic History ??? Marital status: ??? Number of children: 1 Occupational History ??? 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 Smoking status: Never [...] He will get a pair of Jobst elpm-emv-zkzisvo compression socks to help control the pitting edema and muscular things progress from here. EVE BETH Referring Provider: Vernon Mercedes MD PCP: TI ZAMORA MD documented in this encounter Plan of Treatment Upcoming Encounters Date Type Department Care Team (Late st Contact Info) Description 04/25/2024 11:00 AM PROFESSIONAL SPORTS SCOUT Appointment [facility] [address] [facility] [place] [address] Ti Zamora MD [address] [place] [address] 05/23/2024 3:30 PM PROFESSIONAL SPORTS SCOUT Office Visit [facility] [place] [address] Jyoti Escobar MD [address] [place] [address] documented as of this encounter Results * [...] foot documented in this encounter Care Teams Php Software Engineer Relationship Specialty Start Date End Date Ti Zamora MD [address] [place] [phone] PCP - General FAMILY PRACTICE 12/03/21 Evaristo Allan MD [place] Clinical Manager Home Care CARDIOVASCULAR DISEASE 08/19/16 Eve Santana MD CLINICAL CARDIAC ELECTROPHYSIOLOGY 06/16/17 Danny Blackwell MD [address] [place] [address] ORTHOPAEDIC SURGERY 05/01/19 Gayle Arce, BARBARA, TIME STUDY ENGINEER-C [address] [phone] NURSE PRACTITIONER 03/03/20 documented as of this encounter
--- OUTSIDE RECORDS SUMMARY | 2024-04-23 05:15 | XMS_ITS | Encounter Summary ---
Author Organization [facility] Address [address] [place] [address]. [place], [place] [address] [place] [address] Care Team Providers Care Electromechanical Inspector Name Role Phone Evaristo Allan MD Unavailable Unavailabl Raul Duran MD Unavailable Unavailabl Danny Lopes MD Unavailable [phone] Gayle Arce APRN, SUBSTATION DESIGN DRAFTSPERSON-C Unavailable Ti Bonilla MD Primary Care Provider Encounter Details Date Type Department Care Team (Late st Contact Info) Description 11/17/2022 11:20 AM CDT - 11/17/2022 11:59 PM CDT Hospital Encounter [facility] [address] [place] [address] Olivia Pearson, PANELBOARD ASSEMBLER [address] [place] [phone] Discharge Disposition: Home or Self Care (Routine [...] st Contact Info) Description 04/25/2024 11:00 AM TECHNICIAN TRAINEE Appointment [facility] [address] [place] [place] [address] [place] [address] Ti Bonilla MD [address] [place] [phone] 05/23/2024 3:30 PM TECHNICIAN TRAINEE Office Visit [facility] [place] [address] Jyoti Escobar MD [address] [place], [place] [address] documented as of this encounter Visit Diagnoses Diagnosis Type 2 diabetes mellitus with foot ulcer (CODE) ([facility])- Primary documented in this encounter Administered Medications Inactive Administered Medications - up to 3 most recent administrations Medication Order MAR Action Action Date Dose Rate Site lidocaine 2 % URO-JET jelly Topical, Once, 1 dose, On Tue11/17/22 at 1315Indications:Type 2 diabetes mellitus with foot ulcer (CODE) ([facility]) Given 11/17/2022 12:18 PM CDT documented in this encounter Care Teams Electromechanical Inspector Relationship Specialty Start Date End Date Ti Bonilla MD [address] [place] [phone] PCP - General FAMILY PRACTICE 12/03/21 Evaristo Allan MD [employer] Consultant CARDIOVASCULAR DISEASE 08/19/16 Raul Santana MD CLINICAL CARDIAC ELECTROPHYSIOLOGY 06/16/17 Danny Blackwell MD [address] [place] [address] ORTHOPAEDIC SURGERY 05/01/19 Gayle Arce, CIRCULAR SHEAR OPERATOR, SUBSTATION DESIGN DRAFTSPERSON-C 9 [facility] [address] [place] [address] NURSE PRACTITIONER 03/03/20 documented as of this encounter
--- OUTSIDE RECORDS SUMMARY | 2024-04-23 05:15 | XMS_ITS | Encounter Summary ---
Author Organization [facility] Address [address] [place] [address]. [place], [place] [address] [place] [address] Care Team Providers Care Lye Bath Operator Name Role Phone Evaristo Allan MD Unavailable Unavailabl e Eve Santana MD Unavailable Unavailabl e Danny Blackwell MD Unavailable [phone] Gayle Arce APRN, DESIGN TRANSFERRER-C Unavailable Ti Zamora MD Primary Care Provider [...] Description 12/08/2021 11:00 AM CDT Office Visit [facility] [place] [address] [place] [address], [place] [address] Eve Beth, CAROLYN [address] [place] [address] [phone] Blisters (Patient is here for blisters on [...] 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 Not on [...] st Contact Info) Description 04/25/2024 11:00 AM NON DESTRUCTIVE EVALUATION MANAGER Appointment [facility] [address] [place] [address] [place] [address] Ti Zamora MD [address] [place] [phone] 05/23/2024 3:30 PM NON DESTRUCTIVE EVALUATION MANAGER Office Visit [facility] [place] [phone] Jyoti Escobar MD [address] [place] [address] [phone] documented as of this encounter Visit Diagnoses Diagnosis Bulla- Primary Other specified disorder of skin Arthralgia of right foot Pain in joint, ankle and foot Arthralgia of right ankle Pain in joint, ankle and foot Primary osteoarthritis of both feet documented in this encounter Care Teams Lye Bath Operator Relationship Specialty Start Date End Date Ti Zamora MD [address] [place] [phone] PCP - General FAMILY PRACTICE 12/03/21 Evaristo Allan MD [place] Ict Managers CARDIOVASCULAR DISEASE 08/19/16 Eve Santana MD CLINICAL CARDIAC ELECTROPHYSIOLOGY 06/16/17 Danny Blackwell MD [address] [place] [address] ORTHOPAEDIC SURGERY 05/01/19 Gayle Arce APRN, DESIGN TRANSFERRER-C [address] [phone] NURSE PRACTITIONER 03/03/20 documented as of this encounter
--- OUTSIDE RECORDS SUMMARY | 2024-04-23 05:15 | XMS_ITS | Encounter Summary ---
Author Organization [facility] Address [address] [place] [address]. [place], [place] [address] [place] [address] Care Team Providers Care Applications Support Specialist Name Role Phone Evaristo Allan MD Unavailable Unavailabl Raul Duran MD Unavailable Unavailabl Danny Lopes MD Unavailable [phone] Gayle Arce APRN UNATTENDED GROUND SENSOR SPECIALIST-C Unavailable [phone] Ti Zamora MD Primary Care Provider Reason for Visit * Reason Onset Date Comments Appointment Request 10/07/2022 Encounter Details Date Type Department Care Team (Late st Contact Info) Description 10/07/2022 Telephone [facility] ld [address] [place] [address] Myah Handley NP Appointment Request [...] 3:08 PM CDT rcvd 10/07/22 at [address] with [facility] calling to get a mutual pt of Myah Handley scheduled. Pt is Evaristo Zelaya 58. If you could return our call [phone]. Thank you documented in this encounter Plan of Treatment Upcoming Encounters Date Type Department Care Team (Late st Contact Info) Description 04/25/2024 11:00 AM METAL RIVETING MACHINE OPERATOR Appointment [facility] [address] [place] [address] [place] [address] Ti Zamora MD [address] [place] [phone] 05/23/2024 3:30 PM METAL RIVETING MACHINE OPERATOR Office Visit [facility] [address] [place] [address] [place] [address] Jyoti Escobar MD [address] [place] [address] documented as of this encounter Visit Diagnoses Not on filedocumented in this encounter Care Teams Applications Support Specialist Relationship Specialty Start Date End Date Ti Zamora MD [address] [place] [phone] PCP - General FAMILY PRACTICE 12/03/21 Evaristo Allan MD [place] Helpdesk Manager CARDIOVASCULAR DISEASE 08/19/16 Raul Santana MD CLINICAL CARDIAC ELECTROPHYSIOLOGY 06/16/17 Danny Blackwell MD [address] [place] [address] ORTHOPAEDIC SURGERY 05/01/19 Gayle Arce APRN, UNATTENDED GROUND SENSOR SPECIALIST-C [address] [place] [address] [address] [place] [phone] NURSE PRACTITIONER 03/03/20 documented as of this encounter
--- OUTSIDE RECORDS SUMMARY | 2024-04-23 05:15 | XMS_ITS | Encounter Summary ---
Author Organization [facility] Address [address] [place] [address]. [place] [address] [place] [address] Care Team Providers Care Job Developer Name Role Phone Vernon Mercedes MD Primary Care Provider [phone] Evaristo Allan MD Unavailable Unavailabl Raul Duran MD Unavailable Unavailabl Danny Lopes MD Unavailable [phone] Gayle Arce APRN, SWATCH PASTER-C Unavailable Ti Bonilla MD Primary Care Provider [phone] Reason for Visit * Reason Onset Date Comments Reschedule 11/23/2021 Encounter Details Date Type Department Care Team (Late st Contact Info) Description 11/23/2021 Telephone [facility] [address] [place] [address] Myah Handley, SWATCH PASTER Reschedule Social History Tobacco Use Types Packs/Day [...] 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 Not on [...] st Contact Info) Description 04/25/2024 11:00 AM CARGO AND RAMP SERVICES MANAGER Appointment [facility] [address] [place] [address] Ti Bonilla MD [address] [place] [phone] 05/23/2024 3:30 PM CARGO AND RAMP SERVICES MANAGER Office Visit [facility] [address] [place] [address] Jyoti Escobar MD [address] [place] [address] documented as of this encounter Visit Diagnoses Not on filedocumented in this encounter Care Teams Job Developer Relationship Specialty Start Date End Date Vernon Mercedes MD [address] [place] [address] PCP - General FAMILY PRACTICE 10/27/15 12/02/21 Ti Bonilla MD [address] [place] [phone] PCP - General FAMILY PRACTICE 12/03/21 Evaristo Allan MD [address] [place] [address] [place] Aluminum Polisher CARDIOVASCULAR DISEASE 08/19/16 Raul Santana MD [address] [place] [address] CLINICAL CARDIAC ELECTROPHYSIOLOGY 06/16/17 Danny Blackwell MD [address] [place] [address] ORTHOPAEDIC SURGERY 05/01/19 Gayle Arce, LEARN TO SWIM INSTRUCTOR, SWATCH PASTER-C [address] [facility] [address] [place] [address] NURSE PRACTITIONER 03/03/20 documented as of this encounter
--- OUTSIDE RECORDS SUMMARY | 2024-04-23 05:15 | XMS_ITS | Encounter Summary ---
Author Organization [facility] Address [address] [place] [address]. [place], [place] [address] [place] [address] Care Team Providers Care Fingernail Sculpturer Name Role Phone Evaristo Allan MD Unavailable Unavailabl Raul Duran MD Unavailable Unavailabl e Danny Blackwell MD Unavailable [phone] Gayle Arce APRN, PRINTED PRODUCTS ASSEMBLER-C Unavailable Ti Bonilla MD Primary Care Provider [phone] Encounter Details Date Type Department Care Team (Latest Contact Info) Description 10/15/2022 9:58 AM CDT - 10/15/2022 11:59 PM T Hospital Encounter [facility] [address] [facility] [place] [address] Angela [place], DO [address] [place] [address] Daniel Holman, PA 5 [place] [address] Discharge Disposition: Home or Self [...] st Contact Info) Description 04/25/2024 11:00 AM LICENSED NURSE PRACTITIONER Appointment [facility] [address] [facility] [place] [address] Ti Bonilla MD [address] [place] [phone] 05/23/2024 3:30 PM LICENSED NURSE PRACTITIONER Office Visit [facility] [address] [place] [address] Jyoti Escobra MD [address] [place] [address] documented as of this encounter Procedures Procedure [...] - 145 MMOL/L 10/15/2022 10:35 AM CDT [facility] POTASSIUM S/P/B 4.2 3.5 - 5.1 MMOL/L 10/15/2022 10:35 AM CDT [facility] CHLORIDE S/P/B 103 98 - 107 MMOL/L 10/15/2022 10:35 AM CDT [facility] CO2 33.2(H) 21.0 - 32.0 MMOL/L 10/15/2022 10:35 AM [facility] GLUCOSE 206(H) 70 - 99 MG/DL 10/15/2022 10:35 AM [facility] Comment: FASTING GLUCOSE 100 TO 125 MG/DL IS CONSISTENT WITH IMPAIRED FASTING GLUCOSE. FASTING GLUCOSE >125 MG/DL IS CONSISTENT WITH DIABETES. RANDOM GLUCOSE >200 MG/DL WITH HYPERGLYCEMIC SYMPTOMS IS CONSISTENT WITH DIABETES. PER ADA GUIDELINES BUN 23 6 - 24 MG/DL 10/15/2022 10:35 AM [facility] CREATININE S/P/B 0.99 0.70 - 1.30 MG/DL 10/15/2022 10:35 AM [facility] CALCIUM S/P/B 9.2 8.4 - 10.5 MG/DL 10/15/2022 10:35 AM [facility] BILIRUBIN TOTAL S/P/B 0.3 0.2 - 1.0 MG/DL 10/15/2022 10:35 AM [facility] Comment: THIS ASSAY IS NOT RECOMMENDED FOR PATIENTS UNDERGOING TREATMENT WITH ELTROMBOPAG DUE TO THE POTENTIAL FOR FALSELY ELEVATED RESULTS. ALKALINE PHOSPHATASE S/P/B 106 45 - 115 U/L 10/15/2022 10:35 AM [facility] AST 27 15 - 37 U/L 10/15/2022 10:35 AM [facility] ALT 50 16 - 63 U/L 10/15/2022 10:35 AM [facility] TOTAL PROTEIN S/P/B 7.1 6.4 - 8.2 G/DL 10/15/2022 10:35 AM [facility] ALBUMIN S/P/B 2.9(L) 3.4 - 5.0 G/DL 10/15/2022 10:35 AM [facility] ANION GAP 4.8(L) 5.0 - 15.0 MMOL/L 10/15/2022 10:35 AM [facility] OSMOLALITY (CALC) 302 MOSM/KG 023 10:35 AM [facility] Comment:REFERENCE RANGE NOT ESTABLISHED GFR ESTIMATE 86(L) >89 ML/MIN/1. 73 M2 10/15/2022 10:35 AM CDT [facility] GFR NOTES GFR REFERENCE S: 10/15/2022 10:35 AM CDT [facility] Comment: THE ESTIMATED GFR IS [...] [facility] Final Result Performing Organization Address [facility]/ZIP Co de Phone Number [facility] [place] [address], [place] [phone] * (ABNORMAL) HEMOGLOBIN, GLYCOSYLATED (10/15/2022 10:08 AM CDT) HGB A1C 9.7(H) <5.7 % 10/15/2022 11:03 AM CDT [facility] Comment: 5.7 TO 6.4% INCREASED RISK OF DIABETES > OR = 6.5% CONSISTENT WITH DIABETES PER ADA GUIDELINES ESTIMATED AVG GLUCOSE 232(H) 70 - 140 MG/DL 10/15/2022 11:03 AM CDT [facility] 10/15/2022 10:0 8 AM CDT us Daniel [facility] Final Result Performing Organization Address City/[facility]/ZIP Co de Phone Number [facility] [address] [place] [address], [place] [phone] * PROTIME/INR, VENOUS (10/15/2022 10:08 AM CDT) PROTIME 12.0 9.4 - 12.5 SEC 10/15/2022 10:21 AM CDT [facility] INR 1.0 0.8 - 1.0 10/15/2022 10:21 AM CDT [facility] 10/15/2022 10:0 8 AM CDT Daniel [facility] Final Result [facility] [address] [employer] [place] [id number], * (ABNORMAL) CBC W/DIFF AUTOMATED (10/15/2022 10:08 AM CDT) WBC 5.14 4.00 - 10.80 x10'3/uL 10/15/2022 10:13 AM CDT [facility] RBC 4.63 4.50 - 6.10 x10'6/uL 10/15/2022 10:13 AM CDT [facility] HGB 12.1(L) 13.0 - 18.0 G/DL 10/15/2022 10:13 AM CDT [facility] HCT 39.7 37.0 - 52.0 % 10/15/2022 10:13 AM CDT [facility] MCV 85.7 78.0 - 100.0 FL 10/15/2022 10:13 AM CDT [facility] MCH 26.1(L) 27.0 - 31.0 PG 10/15/2022 10:13 AM CDT [facility] MCHC 30.5(L) 33.0 - 36.0 G/DL 10/15/2022 10:13 AM CDT [facility] RDW 15.4(H) 11.5 - 14.5 % 10/15/2022 10:13 AM CDT [facility] PLT 242 150 - 350 x10'3/uL 10/15/2022 10:13 AM CDT [facility] MPV 11.0(H) 7.4 - 10.4 FL 10/15/2022 10:13 AM CDT [facility] CBC COMMENT NORMAL REFERENCE RANGE NOT ESTABLISHED FOR THE PROPORTIONAL LEUKOCYTE DIFFERENTIAL. 10/15/2022 10:13 AM CDT [facility] NEUTROPHILS % 44.3 % 10/15/2022 10:13 AM CDT [facility] LYMPHOCYTES % 36.8 % 10/15/2022 10:13 AM CDT [facility] MONOCYTES % 14.0 % 10/15/2022 10:13 AM CDT [facility] EOSINOPHILS % 3.7 % 10/15/2022 10:13 AM CDT [facility] BASOPHILS % 1.0 % 10/15/2022 10:13 AM CDT [facility] IMMATURE GRANS % 0.2 % 10/16/19 10:13 AM CDT [facility] NRBC 0.0 % 10/15/2022 10:13 AM CDT [facility] ABS. NEUTROPHILS 2.28 1.60 - 8.30 x10'3/uL 10/15/2022 10:13 AM CDT [facility] ABS. LYMPHOCYTES 1.89 0.80 - 4.70 x10'3/uL 10/15/2022 10:13 AM CDT [facility] ABS. MONOCYTES 0.72 0.00 - 1.50 x10'3/uL 10/15/2022 10:13 AM CDT [facility] ABS. EOSINOPHILS 0.19 0.00 - 0.40 x10'3/uL 10/15/2022 10:13 AM CDT [facility] ABS. BASOPHILS 0.05 0.00 - 0.20 x10'3/uL 10/15/2022 10:13 AM CDT [facility] ABS. IMMATURE GRANULOCYTES 0.01 0.00 - 0.03 x10'3/uL 10/15/2022 10:13 AM CDT [facility] ABS. NUCLEATED RBC'S 0.00 0.00 x10'3/uL 10/15/2022 10:13 AM CDT [facility] 10/15/2022 10:0 8 AM CDT [facility] Final Result [facility] [address] [place] [id number], documented in this encounter Visit Diagnoses Diagnosis Altered mental status Paroxysmal A-fib ([facility] HHS/HCC) Atrial fibrillation Type II diabetes mellitus ([facility]) Type II or unspecified type diabetes mellitus without mention of complication, not stated as uncontrolled documented in this encounter Care Teams Fingernail Sculpturer Relationship Specialty Start Date End Date Ti Bonilla MD [address] [place] [phone] PCP - General FAMILY PRACTICE 12/03/21 Evaristo Allan MD [place] Elocution Teacher CARDIOVASCULAR DISEASE 08/19/16 Raul Santana MD CLINICAL CARDIAC ELECTROPHYSIOLOGY 06/16/17 Danny Blackwell MD [address] [place] [address] ORTHOPAEDIC SURGERY 05/01/19 Gayle Arce APRN, PRINTED PRODUCTS ASSEMBLER-C [address] [facility] [address] [place] [address] NURSE PRACTITIONER 03/03/20 documented as of this encounter
--- OUTSIDE RECORDS SUMMARY | 2024-04-23 05:15 | XMS_ITS | Encounter Summary ---
Author Organization [facility] Address [address] [place] [address]. [place] [address] [place] [address] Care Team Providers Care Smoking Pipe Mounter Name Role Phone Evaristo Allan MD Unavailable Unavailabl Raul Duran MD Unavailable Unavailabl Danny Lopes MD Unavailable [phone] Gayle Arce APRN, BOGGER OPERATOR-C Unavailable [phone] Ti Bonilla MD Primary Care Provider Reason for Visit * Reason Onset Date Comments Medication 05/20/2022 Encounter Details Date Type Department Care Team (Late st Contact Info) Description 05/20/2022 Telephone [facility] [place] [address] [place] [address], [place] [address] Raul Jeffers, [address] [address] Medication Social History Tobacco Use [...] 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 Called patient. [facility]. ANGE FLOOR MANAGER documented in this encounter Plan of Treatment Upcoming Encounters Date Type Department Care Team (Late st Contact Info) Description 04/25/2024 11:00 AM EXCHANGE FLOOR MANAGER Appointment [facility] [address] [facility] [place] [address] Ti Bonilla MD [address] [place] [phone] 05/23/2024 3:30 PM EXCHANGE FLOOR MANAGER Office Visit [facility] [address] [facility] [place] [address] Jyoti Escobar MD [address] [place] [address] documented as of this encounter Visit Diagnoses Not on filedocumented in this encounter Care Teams Smoking Pipe Mounter Relationship Specialty Start Date End Date Ti Bonilla MD [address] [place] [phone] PCP - General FAMILY PRACTICE 12/03/21 Evaristo Allan MD [place] Pyrometer Mechanic CARDIOVASCULAR DISEASE 08/19/16 Raul Santana MD CLINICAL CARDIAC ELECTROPHYSIOLOGY 06/16/17 Danny Blackwell MD [address] [place] [address] ORTHOPAEDIC SURGERY 05/01/19 Gayle Arce APRN, BOGGER OPERATOR-C [address] [facility] [address] [place] [phone] NURSE PRACTITIONER 03/03/20 documented as of this encounter
--- OUTSIDE RECORDS SUMMARY | 2024-04-23 05:15 | XMS_ITS | Encounter Summary ---
Author Organization [facility] Address [address] [place] [address]. 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 [address] [place] [address] [place] [address] Ti Bonilla MD [address] [place] [phone] 05/23/2024 3:30 PM SYNTHETIC CLOTH BINDING CUTTER Office Visit [facility] [place] [phone] Jyoti Escobar MD [address] [place] [phone] documented as of this encounter Visit Diagnoses Not on filedocumented in this encounter Care Teams Apartment Manager Relationship Specialty Start Date End Date Ti Bonilla MD [address] [place] [phone] PCP - General FAMILY PRACTICE 12/03/21 Evaristo Allan MD [facility] Assistant CARDIOVASCULAR DISEASE 08/19/16 Raul Santana MD CLINICAL CARDIAC ELECTROPHYSIOLOGY 06/16/17 Danny Blackwell MD 5 [place] [address] ORTHOPAEDIC SURGERY 05/01/19 Gayle Arce, BARBARA, BLENDING COORDINATOR-C [address] [facility] [address] [place] [phone] NURSE PRACTITIONER 03/03/20 documented as of this encounter
--- OUTSIDE RECORDS SUMMARY | 2024-04-23 05:15 | XMS_ITS | Encounter Summary ---
Author Organization [facility] Address [address] [place] [address]. [place], [place] [address] [place] [address] Care Team Providers Care Tube Cutter Name Role Phone Evaristo Allan MD Unavailable Unavailabl pablo Santana, Raul Reyes MD Unavailable Unavailabl e , Danny Galo MD Unavailable [phone] Gayle Arce APRN, SENIOR QA TESTER-C Unavailable [phone] Ti Bonilla MD Primary Care Provider [phone] Reason for Referral * Imaging (Emergency) - Closed Specialty Diagnoses / Procedures Referred By Conttianna t Referred To Contact RADIOLOGY Diagnoses Altered mental status Procedures CT HEAD WO CON Daniel Ross PA [address] [place] [phone] Phone: tel: fax: Referral ID Status Reason Start Date Expiration Date Visits Re quested Visits Authorized [id number] Closed 10/14/2022 12/12/2022 1 1 * Imaging (Routine) - Closed Specialty Diagnoses / Procedures Referred By Conttianna t Referred To Contact RADIOLOGY Diagnoses 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, with muscle involvement without evidence of necrosis (CMS/HCC HHS/HCC) Procedures [facility] Olivia Pearson, PILLAR MAN [address] [facility] [address] [place] [address] Phone: tel: fax: Referral ID Status Reason Start Date Expiration Date V isits Requested Visits Authorized [id number] Closed Vascular Imaging 09/29/2022 09/30/2023 1 1 Reason for Visit * Imaging (Routine) - Closed Specialty Diagnoses / Procedures Referred By Contac t Referred To Contact RADIOLOGY Diagnoses 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, with muscle involvement without evidence of necrosis (CMS/HCC HHS/HCC) Procedures [facility] Olivia Pearson FNP [address] [place] [address] Phone: tel: fax: Referral ID Status Reason Start Date Expiration Date V isits Requested Visits Authorized [id number] Closed Vascular Imaging 09/29/2022 09/30/2023 1 1 Encounter Details Date Type Department Care Team (Late st Contact Info) Description 10/14/2022 12:23 PM CDT - 10/14/2022 11:59 PM CDT Hospital Encounter [facility] [address] [place] [address] Olivia Pearson FNP [address] [place] [address] Discharge Disposition: Home or Self Care (Routine [...] 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 Not on [...] Contact Info) Description 04/25/2024 11:00 AM COMMERCIAL JOURNEYMAN ELECTRICIAN Appointment [facility] [place] [address] Ti Bonilla MD [address] [place] [phone] 05/23/2024 3:30 PM COMMERCIAL JOURNEYMAN ELECTRICIAN Office Visit [facility] [address] [place] [phone] Jyoti Escobar MD [address] [place] [phone] documented as of this encounter Procedures Procedure [...] Laterality Modality Extremity Ultrasound us Olivia Pearson PILLAR MAN US VASC Final Result documented in this encounter Visit Diagnoses Diagnosis 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, with muscle involvement without evidence of necrosis (CMS/HCC HHS/HCC) Altered mental status documented in this encounter Care Teams Tube Cutter Relationship Specialty Start Date End Date Ti Bonilla MD [address] [place] [phone] PCP - General FAMILY PRACTICE 12/03/21 Evaristo Allan MD [place] Mixer Tender CARDIOVASCULAR DISEASE 08/19/16 Raul Santana MD CLINICAL CARDIAC ELECTROPHYSIOLOGY 06/16/17 Danny Blackwell MD [address] [place] [address] ORTHOPAEDIC SURGERY 05/01/19 Gayle Arce APRN, SENIOR QA TESTER-C [address] [phone] NURSE PRACTITIONER 03/03/20 documented as of this encounter
--- OUTSIDE RECORDS SUMMARY | 2024-04-23 05:15 | XMS_ITS | Encounter Summary ---
Author Organization [facility] Address [address] [place] [address]. [place], [place] [address] [place] [address] Care Team Providers Care Quill Collector Name Role Phone Evaristo Allan MD Unavailable Unavailabl Raul Duran MD Unavailable Unavailabl Danny Lopes MD Unavailable [phone] Gayle Arce APRN, ART HANDLER-C Unavailable Ti Bonilla MD Primary Care Provider Encounter Details Date Type Department Care Team (Late st Contact Info) Description 11/03/2022 9:55 AM CDT - 11/03/2022 11:59 PM CDT Hospital Encounter [facility] [address] [place] [address] Olivia Pearson, MACHINE MOLDER SQUEEZE [address] [place] [phone] Discharge Disposition: Home or Self Care (Routine [...] 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 [address] [place] [address] Ti Bonilla MD [address] [place] [phone] 05/23/2024 3:30 PM GLASS TECHNICIAN Office Visit [facility] [address] [place] [phone] Jyoti Escobar MD [address] [place] [address] documented as of this encounter Visit Diagnoses [...] CDT documented in this encounter Care Teams Quill Collector Relationship Specialty Start Date End Date Ti Bonilla MD [address] [place] [phone] PCP - General FAMILY PRACTICE 12/03/21 Evaristo Allan MD [place] Online Marketing Analyst CARDIOVASCULAR DISEASE 08/19/16 Raul Santana MD CLINICAL CARDIAC ELECTROPHYSIOLOGY 06/16/17 Danny Blackwell MD 5 [place] [address] ORTHOPAEDIC SURGERY 05/01/19 Gayle Arce APRN, ART HANDLER-C 9 [facility][1] [address] [place] [address] NURSE PRACTITIONER 03/03/20 documented as of this encounter
--- OUTSIDE RECORDS SUMMARY | 2024-04-23 05:15 | XMS_ITS | Encounter Summary ---
Author Organization [facility] Address [address] [place] [address]. [place], [place] [address] [place] [address] Care Team Providers Care Coil Builder Name Role Phone Evaristo Allan MD Unavailable Unavailabl Raul Duran MD Unavailable Unavailabl e Danny Blackwell MD Unavailable [phone] Gayle Arce APRN, ORACLE E BUSINESS DEVELOPER-C Unavailable [phone] Ti Bonilla MD Primary Care Provider Reason for Referral * Imaging (Routine) - Closed Specialty Diagnoses / Procedures Referred By Conttianna t Referred To Contact RADIOLOGY Diagnoses 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, with muscle involvement without evidence of necrosis (CMS/HCC HHS/HCC) Procedures [facility] Olivia Pearson FNP [address] [place] [address] Phone: tel: fax: Referral ID Status Reason Start Date Expiration Date V isits Requested Visits Authorized [id number] Closed Vascular Imaging 09/29/2022 09/30/2023 1 1 Encounter Details Date Type Department Care Team (Late st Contact Info) Description 09/29/2022 9:00 AM CDT - 09/29/2022 11:59 PM CDT Hospital Encounter [facility] [address] [place] [address] Olivia Pearson FNP [address] [place] [address] Discharge Disposition: Home or Self Care (Routine [...] 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 [address] [place] [address] [place] [address] Ti Bonilla MD [address] [place] [phone] 05/23/2024 3:30 PM GROUP BURNER MACHINE Office Visit [facility] [address] [place] [address] [place] [phone] Jyoti Escobar MD [address] [place] [phone] documented as of this encounter Procedures Procedure [...] Laterality Modality Extremity Ultrasound us Olivia Pearson CUSTOMER DEVELOPMENT MANAGER US VASC Final Result * CULTURE, WOUND, W/GRAM STAIN (09/29/2022 10:02 AM CDT) SPEC DESCRIPTION TOE,LEFT 09/29/2022 10:[address] [facility] SPECIAL REQUESTS NO SPECIAL REQUEST 09/29/2022 10:[address] [facility] CULTURE RESULT MODERATE STAPHYLOCOCCUS PSEUDINTERMEDIUS 10/03/2022 7:45 AM CDT [facility] CULTURE RESULT FEW ENTEROCOCCUS FAECALIS 10/03/2022 7:45 AM CDT [facility] STRUCTURE OF TOE OF LEFT FOOT / Unknown 09/29/2022 10:02 AM CDT 09/29/2022 10:41 AM CDT Narrative Organism Antibiotic Method Susceptibility Staphylococcus pseudintermedius CLINDAMYCIN TOSHA (JOSEP K) Sensitive Staphylococcus pseudintermedius ERYTHROMYCIN TOSHA (JOSEP K) Sensitive Staphylococcus pseudintermedius GENTAMICIN TOSAH (JOSEP K) Sensitive Staphylococcus pseudintermedius OXACILLIN TOSHA [...] MICROBIOLOGY - GENERAL ORDERAB LES Final Result [facility] [address] [place] [address], [place] [phone] [facility] [address] [place] [address], [place] [phone] documented in this encounter Visit Diagnoses Diagnosis [...] CDT documented in this encounter Care Teams Coil Builder Relationship Specialty Start Date End Date Ti Bonilla MD [address] [place] [phone] PCP - General FAMILY PRACTICE 12/03/21 Evaristo Allan MD [place] Batch Dumper CARDIOVASCULAR DISEASE 08/19/16 Raul Santana MD CLINICAL CARDIAC ELECTROPHYSIOLOGY 06/16/17 Danny Blackwell MD 5 [place] [address] ORTHOPAEDIC SURGERY 05/01/19 Gayle Arce APRN, ORACLE E BUSINESS DEVELOPER-C [address] [facility] [address] [place] [address] NURSE PRACTITIONER 03/03/20 documented as of this encounter
--- OUTSIDE RECORDS SUMMARY | 2024-04-23 05:15 | XMS_ITS | Encounter Summary ---
Author Organization [facility] Address [address] [place] [address]. [place], [place] [address] [place] [address] Care Team Providers Care Charge Machine Operator Name Role Phone Elza Allan MD Unavailable Unavailabl Raul Duran MD Unavailable Unavailabl Danny Lopes MD Unavailable [phone] Gayle Arce APRN BARREL BANDER-C Unavailable Ti Zamora MD Primary Care Provider Reason for Visit * Reason Comments Follow Up Encounter Details Date Type Department Care Team (Late st Contact Info) Description 01/28/2022 9:30 AM CDT Office Visit [facility] [address] [place] [phone] Josiah Friedman NP Follow Up Social History [...] 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 Cardiac Electrophysiology Clinic Note PATIENT NAME: Elza Mcekon : 1960 REFERRING PROVIDER: Vernon Mercedes MD PCP: TI ZAMORA MD Reason for Visit Atrial flutter History of Present Illness Mr. Mccabe is a very pleasant 62-year-old male with past medical history including atrial fibrillation, pulmonary vein isolation May 19, [address] Santana, coronary artery disease with history of WELLNESS MANAGER PCI, palpitations. He was noted to be [...] since ablation. He mentioned this to his wire bender, who ordered duplex which was negative for [...] TRUEPLUS PEN NEEDLES 31G X 8 MM [facility], , Disp: , Rfl: Allergies Allergies Allergen [...] CATHETERIZATION 01/04/2018 occluded prox RCA w/well developed kova-ry-hhwhi collaterals lvef 55-60% ??? CARDIAC CATHETERIZATION 11/13/2018 ??? FRACTURE SURGERY ??? 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 HERNIA REPAIR ??? JOINT REPLACEMENT ??? KNEE ARTHROPLASTY Bilateral ??? LITHOTRIPSY ??? XA ABLATION 05/19/2016 ??? XA CORONARY INTERVENTION 03/24/2018 WELLNESS MANAGER PCI-mid RCA Social History Tobacco Use ??? [...] st Contact Info) Description 04/25/2024 11:00 AM WIND ENERGY ENGINEER Appointment [facility] [address] [place] [address] Ti Zamora MD [address] [place] [phone] 05/23/2024 3:30 PM WIND ENERGY ENGINEER Office Visit [facility] [address] [place] [address] Jyoti Escobar MD [address] [place] [address] documented as of this encounter Procedures Procedure Name Priority Date/Time Associated Diagnosis Comments ELECTROCARDIOGRAM (NON MIDMARK ACQUIRED) Routine 01/28/2022 9:28 AM CDT Paroxysmal atrial fibrillation ([facility]) documented in this encounter Results * ELECTROCARDIOGRAM (01/28/2022 9:28 AM CDT) 01/28/2022 9:28 AM CDT Narrative [facility] - 02/01/2022 4:29 PM CDT ? [facility] ?[address] [place], [place] ??[address] ? Test Date: ?2022-01-28 Pat Name: ? ELZA MCKEON ? Department: ?? 105 ? Room: ? Gender: ? Male ? Slabber: ?? : ?1960 ? Requested By: MARITO DAVIS Order Number: [id number] ?Reading MD: ?? Arnel Murillo ? Measurements Intervals ?[place] ? Rate: ? 82 ? P: ?69 HI: ? 147 ?QRS: ?46 QRSD: ? 123 ?T: ?12 QT: ? 385 ? QTc: ?450 ? Interpretive Statements SINUS RHYTHM RIGHT BUNDLE BRANCH BLOCK Procedure Note Arnel Murillo MD - 02/01/2022 [facility], [place] [address] [place] [address] Test Date: 2022-01-28 Pat Name: [facility] Department: 105 Room: Gender: Male Slabber: : 1960 Requested By: MARITO DAVIS Order Number: [id number] Jose Antonio MD: Arnel Murillo Measurements Intervals [place] Rate: 82 P: 69 HI: 147 QRS: 46 QRSD: 123 T: 12 QT: 385 QTc: 450 Interpretive Statements SINUS RHYTHM RIGHT BUNDLE BRANCH BLOCK us Marito Davis MD PROCEDURES-ORDERABLE NO CHARGE Final Result [facility] documented in this encounter Visit Diagnoses Diagnosis Paroxysmal atrial fibrillation ([facility]/HCC) Atrial fibrillation documented in this encounter Care Teams Charge Machine Operator Relationship Specialty Start Date End Date Ti Zamora MD [address] [place] [phone] PCP - General FAMILY PRACTICE 12/03/21 Elza Allan MD [place] Human Resources Leader CARDIOVASCULAR DISEASE 08/19/16 Raul Santana MD CLINICAL CARDIAC ELECTROPHYSIOLOGY 06/16/17 Danny Blackwell MD [address] [place] [address] ORTHOPAEDIC SURGERY 05/01/19 Gayle Arce APRN, BARREL BANDER-C [address] [facility] [address] [place] [address] NURSE PRACTITIONER 03/03/20 documented as of this encounter
--- OUTSIDE RECORDS SUMMARY | 2024-04-23 05:15 | XMS_ITS | Encounter Summary ---
Author Organization [facility] Address [address] [place] [address]. [place], [place] [address] [place] [address] Care Team Providers Care Manager Environmental Affairs Name Role Phone Evaristo Allan MD Unavailable Unavailabl Raul Duran MD Unavailable Unavailabl Danny Lopes MD Unavailable [phone] Gayle Arce APRN, WINDOWS SERVER ARCHITECT-C Unavailable Ti Bonilla MD Primary Care Provider Encounter Details Date Type Department Care Team (Late st Contact Info) Description 10/27/2022 2:25 PM CDT - 10/27/2022 11:59 PM CDT Hospital Encounter [facility] [address] [place] [address] Olivia Pearson, ENGLISH PROFESSOR [address] [place] [phone] Discharge Disposition: Home or Self Care (Routine [...] 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 [address] [place] [address] Ti Bonilla MD [address] [place] [phone] 05/23/2024 3:30 PM TELECOMMUNICATIONS OPERATOR Office Visit [facility] [place] [phone] Jyoti Escobar MD [address] [place] [address] documented as of this encounter Visit Diagnoses [...] CDT documented in this encounter Care Teams Manager Environmental Affairs Relationship Specialty Start Date End Date Ti Bonilla MD [address] [place] [phone] PCP - General FAMILY PRACTICE 12/03/21 Evaristo Allan MD [place] Fluoroscope Operator CARDIOVASCULAR DISEASE 08/19/16 Raul Santana MD CLINICAL CARDIAC ELECTROPHYSIOLOGY 06/16/17 Danny Blackwell MD [address] [place] [address] ORTHOPAEDIC SURGERY 05/01/19 Gayle Arce APRN, WINDOWS SERVER ARCHITECT-C [address] [place] [address] [address] [place] [phone] NURSE PRACTITIONER 03/03/20 documented as of this encounter
--- OUTSIDE RECORDS SUMMARY | 2024-04-23 05:15 | XMS_ITS | Encounter Summary ---
Author Organization [facility] Address [address] [place] [address]. [place], [place] [address] [place] [address] Care Team Providers Care Home Health Attendant Name Role Phone Evaristo Allan MD Unavailable Unavailabl Raul Duran MD Unavailable Unavailabl Danny Lopes MD Unavailable [phone] Gayle Arce APRN, ARMATURE REPAIRER-C Unavailable Ti Bonilla MD Primary Care Provider Encounter Details Date Type Department Care Team (Late st Contact Info) Description 11/10/2022 10:47 AM CDT - 11/10/2022 11:59 PM CDT Hospital Encounter 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 [address] [place] [address] Ti Bonilla MD [address] [place] [phone] 05/23/2024 3:30 PM PANTS PRESSER Office Visit [facility] [address] [place] [phone] Jyoti Escobar MD [address] [place] [address] documented as of this encounter Visit Diagnoses [...] CDT documented in this encounter Care Teams Home Health Attendant Relationship Specialty Start Date End Date Ti Bonilla MD [address] [place] [phone] PCP - General FAMILY PRACTICE 12/03/21 Evaristo Allan MD [place] Stem Sawyer CARDIOVASCULAR DISEASE 08/19/16 Raul Santana MD CLINICAL CARDIAC ELECTROPHYSIOLOGY 06/16/17 Danny Blackwell MD [address] [place] [address] ORTHOPAEDIC SURGERY 05/01/19 Gayle Arce APRN, ARMATURE REPAIRER-C [address] [place] [address] [address] [place] [address] NURSE PRACTITIONER 03/03/20 documented as of this encounter
--- OUTSIDE RECORDS SUMMARY | 2024-04-23 05:15 | XMS_ITS | Encounter Summary ---
Author Organization [facility] Address [address] [place] [address]. [place], [place] [address] [place] [address] Care Team Providers Care Slasher Tender Helper Name Role Phone Ton Mercedes MD Primary Care Provider [phone] Elza Allan MD Unavailable Unavailabl Raul Duran MD Unavailable Unavailabl e Danny Blackwell MD Unavailable [phone] Gayle Arce APRN PRINCIPAL SOFTWARE ARCHITECT-C Unavailable Reason for Referral * Imaging (Routine) - Closed Specialty Diagnoses / Procedures Referred By Charito ledbetter Referred To Contact RADIOLOGY Diagnoses Atrial flutter ([facility] HHS/HCC) Procedures XA AFLUTTER ABLATION Joshua Yin MD [address] [place] [address] Phone: tel: fax: Referral ID Status Reason Start Date Expiration Date Visits Re quested Visits Authorized [id number] Closed 11/04/2021 12/05/2022 1 1 Reason for Visit * Auth/Cert Specialty Diagnoses / Procedures Referred By Charito ledbetter Referred To Contact Diagnoses Atrial flutter ([facility] HHS/HCC) Procedures XA AFLUTTER ABLATION Joshua Yin MD [address] [place] [address] Phone: tel: fax: Referral ID Status Reason Start Date Expiration Date Visits Re quested Visits Authorized [id number] 1 1 Encounter Details Date Type Department Care Team (Latest Contact Info) Description 11/17/2021 6:07 AM CDT - 11/18/2021 1:37 PM CDT Hospital Encounter [facility] [address] [place] [address] Joshua Yin MD [address] [place] [address] Discharge Disposition: Home or Self [...] 2016, coronary artery disease with history of DOCUMENT COORDINATOR PCI, palpitations. S/P Catheter ablation of atrial [...] antiarrhythmic drugs. 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 Discharge Medications Medication List CONTINUE taking these medications Morning Afternoon Evening Bedtime As Needed TRUEplus Pen [place] 31G X 8 MM [facility] Generic drug: Insulin Pen Needle ASK your [...] Care Everywhere. * Atrial Flutter Discharge Instructions (Thai) documented in this encounter Medications at Time [...] during recuperation were discussed with the patient/family/personal construction sales representative. Reasonable alternatives to the patient's proposed procedure/surgery including benefits, risks, and side effects related to the alternatives and the risks related to not receiving the proposed care were also discussed with the patient/family/personal construction sales representative. Questions were answered and the patient/family/personal construction sales representative verbalized understanding and desires to [...] 2016, coronary artery disease with history of DOCUMENT COORDINATOR PCI, palpitations. Last seen by Myah Handley [...] PEN NEEDLES 31G X 8 MM [facility], , Disp: , Rfl: Allergies Allergies Allergen [...] CATHETERIZATION 01/04/2018 occluded prox RCA w/well developed uhry-qm-vzuuf collaterals lvef 55-60% ??? CARDIAC CATHETERIZATION 11/13/2018 ??? FRACTURE SURGERY ??? 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 HERNIA REPAIR ??? JOINT REPLACEMENT ??? KNEE ARTHROPLASTY Bilateral ??? LITHOTRIPSY ??? XA ABLATION 05/19/2016 ??? XA CORONARY INTERVENTION 03/24/2018 DOCUMENT COORDINATOR PCI-mid RCA Social History Tobacco Use ??? [...] Electrophysiology Procedure Note Date of Procedure: 11/17/2021 Bill Sorter: Joshua Yin MD Pre-Procedure Diagnosis: 1. Atrial [...] of atrial fibrillation by pulmonary vein isolation [76292] ??? Additional linear intracardiac catheter ablation of the left atrium for treatment of atrial fibrillation remaining after completion of pulmonary vein isolation [+ 18770] ??? Intracardiac catheter ablation of a discrete mechanism of arrhythmia (left atrial flutter) which is distinct from the primary ablated mechanism, including repeat diagnostic maneuvers, to treat a spontaneous or induced arrhythmia [+ 02224] ??? Intracardiac echocardiography during therapeutic/diagnostic intervention, including imaging supervision and interpretation [+ 42372-61] ??? Left atrial pacing and recording from coronary sinus or left atrium [+ 81785-29] ??? Programmed stimulation and pacing after intravenous drug infusion [+ 51339-69] ??? Moderate (conscious) sedation. Post-Procedure Diagnosis: 1. [...] was present. Activation was performed using the [place] catheter and Piccsyia 3-D mapping system. The AT was mapped [...] (see above). 3-D electroanatomic mapping wasperformed using Piccsyia electroanatomical mapping system to build a 3-D [...] Planned Procedure: Catheter ablation Indication: Atrial flutter Bill Sorter: JOSHUA YIN MD Medical History: Patient Active Problem List Diagnosis ??? Essential hypertension ??? Paroxysmal atrial fibrillation ([facility]/HCC) ??? superintendent terminal current use of anticoagulant therapy ??? Obstructive sleep apnea ??? Hyperlipidemia ??? Diabetes ([facility]) ??? Coronary artery disease ??? Chronic total occlusion of [place] coronary artery ??? Cardiovascular stress test abnormal ??? Arthritis of knee ??? Derangement of medial meniscus, left ??? Heartburn ??? Knee pain ??? Mechanical complication of internal orthopedic device, implant or graft, initial encounter ([facility]) ??? Patella-femoral syndrome ??? Pes anserine bursitis ??? Recurrent ventral incisional hernia ??? Abdominal pain ??? Failure of total knee replacement, initial encounter ([facility]) ??? S/P coronary artery stent placement ??? 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 Status post revision of total replacement of right knee ??? Neck pain ??? Microhematuria Past Surgical History: Procedure Laterality Date ??? CARDIAC CATHETERIZATION 01/04/2018 occluded prox RCA w/well developed fwyn-il-srphm collaterals lvef 55-60% ??? CARDIAC CATHETERIZATION 11/13/2018 ??? FRACTURE SURGERY ??? 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 HERNIA REPAIR ??? JOINT REPLACEMENT ??? KNEE ARTHROPLASTY Bilateral ??? LITHOTRIPSY ??? XA ABLATION 05/19/2016 ??? XA CORONARY INTERVENTION 03/24/2018 DOCUMENT COORDINATOR PCI-mid RCA No current facility-administered medications on [...] PEN NEEDLES 31G X 8 MM [facility] Social History Socioeconomic History ??? Marital status: Spouse name: Not on file ??? Number of children: 1 ??? Years of education: Not on file ??? Highest education level: Not on file Occupational History ??? 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 Smoking status: Never Smoker [...] Info) Description 04/25/2024 11:00 AM MANAGER OF SUSTAINABILITY Appointment [facility] [address] [place] [address] Ti Bonilla MD [address] [place] [phone] 05/23/2024 3:30 PM MANAGER OF SUSTAINABILITY Office Visit [facility] [place] [address] Jyoti Escobar MD [address] [place] [address] Pending Results Name Type Priority Associated Diagnoses Date /Time XA AFLUTTER ABLATION Cardiac Cath Routine Atrial flutter ([facility]) 11/17/2021 10:31 AM CDT Scheduled Orders Name Type Priority Associated Diagnoses Orde r Schedule XA AFLUTTER ABLATION Cardiac Cath Routine Atrial flutter ([facility]) Once for 1 Occurrences starting 11/17/2021 until [...] (ABNORMAL) POCT glucose (11/18/2021 11:33 AM CDT) [facility] GLUCOSE POC 221(H) 70 - 109 11/18/2021 11:[address] [facility] 11/18/2021 11:3 3 AM CDT Joshua Yin MD POCT ORDERABLES - DEVICE Final R esult [facility] [address] [place] [address], [id number] * ECG 12 lead - in AM (11/18/2021 6:21 AM CDT) 11/18/2021 6:21 AM CDT Narrative [facility] - 11/18/2021 12:32 PM CDT ? [facility] ?[address] [place], [place] ??[address] ? Test Date: ?2021-11-18 Pat Name: ? ELZA MCKEON ? Department: ?? 1 ? Room: ? 628AA Gender: ? Male ? Talent Solutions Manager: ?? Sc : ?1960 ? Requested By: ZIAD RODNEY Order Number: [id number] ? Reading MD: ?? Jessy Charlesak ? Measurements Intervals ?[place] ? Rate: ? 107 ?P: ?58 SC: ? 174 ?QRS: ?62 QRSD: ? 113 ?T: ?15 QT: ? 354 ? QTc: ?473 ? Interpretive Statements SINUS TACHYCARDIA RIGHT BUNDLE BRANCH BLOCK ABNORMAL RHYTHM ECG Procedure Note Jessy Rivera MD - 11/18/2021 [place] [address] [place] [address] Test Date: 2021-11-18 Pat Name: [facility] Department: 1 Room: [facility] Gender: Male Talent Solutions Manager: Lauro : 1960 Requested By: JOSHUA YIN Order Number: [id number] Reading MD: Jessy Rivera Measurements Intervals [place] Rate: 107 P: 58 SC: 174 QRS: 62 QRSD: 113 T: 15 QT: 354 QTc: 473 Interpretive Statements SINUS TACHYCARDIA RIGHT BUNDLE BRANCH BLOCK ABNORMAL RHYTHM ECG us Joshua Yin MD ECG ORDERABLES Final Result Performing Organization Address [facility] de Phone Number [facility] * MAGNESIUM (11/18/2021 6:21 AM CDT) MAGNESIUM 2.1 1.6 - 2.6 MG/DL 11/18/2021 7:[address] [facility] 11/18/2021 6:21 AM CDT us Joshua Yin MD LABORATORY Final Result Performing Organization Address [facility] de Phone Number [facility] [address] [place] [address], [phone] * (ABNORMAL) BASIC METABOLIC PANEL (11/18/2021 6:21 AM CDT) SODIUM S/P/B 140 136 - 145 MMOL/L 11/18/2021 7:[address] [facility] POTASSIUM S/P/B 4.2 3.5 - 5.1 MMOL/L 11/18/2021 7:[address] [facility] CHLORIDE S/P/B 104 98 - 107 MMOL/L 11/18/2021 7:[address] [facility] CO2 30.0 21.0 - 32.0 MMOL/L 11/18/2021 7:[address] [facility] GLUCOSE 135(H) 74 - 106 MG/DL 11/18/2021 7:[address] [facility] BUN 13 7 - 18 MG/DL 11/18/2021 7:[address] [facility] CREATININE S/P/B 0.83 0.70 - 1.30 MG/DL 11/18/2021 7:[address] [facility] CALCIUM S/P/B 8.8 8.5 - 10.1 MG/DL 11/18/2021 7:[address] [facility] ANION GAP 6.0 5.0 - 15.0 MMOL/L 11/18/2021 7:[address] [facility] OSMOLALITY (CALC) 292 MOSM/KG 022 7:[address] [facility] Comment:REFERENCE RANGE NOT ESTABLISHED GFR ESTIMATE >90 >90 ML/MIN/1. 73 M2 11/18/2021 7:[address] [facility] GFR NOTES GFR REFERENCE S: 11/18/2021 7:[address] [facility] Comment: THE ESTIMATED GFR IS [...] m2 11/18/2021 6:21 AM CDT us Joshua Yni MD LABORATORY Final Result Performing Organization Address [facility] Co de Phone Number [facility] [address] [place] [address], [place] [phone] * (ABNORMAL) PROTIME/INR, VENOUS (11/18/2021 6:21 AM CDT) PROTIME 13.7(H) 9.4 - 12.5 SEC 11/18/2021 7:[address] [facility] INR 1.2(H) 0.8 - 1.1 11/18/2021 7:[address] [facility] 11/18/2021 6:21 AM CDT us Joshua Yin MD LABORATORY Final Result Performing Organization Address City/[facility] Co de Phone Number [facility] [address] [place] [address], [place] [phone] * (ABNORMAL) CBC W/DIFF AUTOMATED (11/18/2021 6:21 AM CDT) WBC 9.0 4.0 - 10.8 x10'3/uL 11/18/2021 7:[address] [facility] RBC 4.21(L) 4.50 - 6.10 x10'6/uL 11/18/2021 7:[address] [facility] HGB 11.0(L) 13.0 - 18.0 G/DL 11/18/2021 7:[address] [facility] HCT 37.0 37.0 - 52.0 % 11/18/2021 7:[address] [facility] MCV 87.9 78.0 - 100.0 FL 11/18/2021 7:[address] [facility] MCH 26.1(L) 27.0 - 31.0 PG 11/18/2021 7:[address] [facility] MCHC 29.7(L) 33.0 - 36.0 G/DL 11/18/2021 7:[address] [facility] RDW 16.1(H) 11.5 - 14.5 % 11/18/2021 7:[address] [facility] PLT 252 150 - 350 x10'3/uL 11/18/2021 7:[address] [facility] MPV 10.9(H) 7.4 - 10.4 FL 11/18/2021 7:[address] [facility] ABS. NEUTROPHILS 5.97 1.60 - 8.30 x10'3/uL 11/18/2021 7:[address] [facility] ABS. LYMPHOCYTES 1.67 0.80 - 4.70 x10'3/uL 11/18/2021 7:[address] [facility] ABS. MONOCYTES 1.05 0.00 - 1.50 x10'3/uL 11/18/2021 7:[address] [facility] ABS. EOSINOPHILS 0.24 0.00 - 0.40 x10'3/uL 11/18/2021 7:[address] [facility] ABS. BASOPHILS 0.06 0.00 - 0.20 x10'3/uL 11/18/2021 7:[address] [facility] ABS. IMMATURE GRANULOCYTES 0.05(H) 0.00 - 0.03 x10'3/uL 11/18/2021 7:[address] [facility] ABS. NUCLEATED RBC'S 0.00 0.0 x10'3/uL 11/18/2021 7:[address] [facility] 11/18/2021 6:21 AM CDT us Joshua Yin MD LABORATORY Final Result Performing Organization Address [facility] Co de Phone Number [facility] [address] [place] [address], [place] [phone] * (ABNORMAL) POCT glucose (11/18/2021 6:16 AM CDT) GLUCOSE POC 149(H) 70 - 109 11/18/2021 6:[address] [facility] 11/18/2021 6:16 AM CDT Joshua Yin MD POCT ORDERABLES - DEVICE Final R esult Performing Organization Address [facility] de Phone Number [facility] [address] [place] [address], [place] [phone] * XR CHEST PA+LAT (11/18/2021 6:10 AM [...] 70 - 109 11/18/2021 2:[address] [facility] 11/18/2021 2:49 AM CDT us Joshua Yin MD POCT ORDERABLES - DEVICE Final R esult Performing Organization Address City/[facility]/ZIP Co de Phone Number [facility] [address] [place] [address], [place] [phone] * (ABNORMAL) POCT glucose (11/18/2021 12:17 AM CDT) GLUCOSE POC 62(L) 70 - 109 11/18/2021 12:[address] [facility] 11/18/2021 12:1 7 AM CDT us Joshua Yin MD POCT ORDERABLES - DEVICE Final R esult Performing Organization Address [facility]/ZIP Co de Phone Number [facility] [address] [place] [address], [place] [phone] * POCT glucose (11/17/2021 9:31 PM CDT) GLUCOSE POC 81 70 - 109 11/17/2021 9:[address] [facility] 11/17/2021 9:31 PM CDT us Joshua Yin MD POCT ORDERABLES - DEVICE Final R esult Performing Organization Address City/[facility]/ZIP Co de Phone Number [facility] [address] [place] [address], [place] [phone] * (ABNORMAL) POCT glucose (11/17/2021 4:24 PM CDT) GLUCOSE POC 174(H) 70 - 109 11/17/2021 4:[address] [facility] 11/17/2021 4:24 PM CDT Joshua Yin MD POCT ORDERABLES - DEVICE Final R esult [facility] [address] [place] [address], [phone] * ECG 12 lead - Today (11/17/2021 12:29 PM CDT) 11/17/2021 12:2 9 PM CDT Narrative [facility] - 11/17/2021 5:56 PM CDT ?[address] [place], [place] ??[address] ? Test Date: ?2021-11-17 Pat Name: ? ELZA MCKEON ? Department: ?? 1 ? Room: ? 628 Gender: ? Male ? Talent Solutions Manager: ?? Sc : ?1960 ? Requested By: JOSHUA YIN Order Number: [id number] ? Jose Antonio OSMAN: ?? Jessy Rivera ? Measurements Intervals ?[place] ? Rate: ? 92 ? P: ?54 SC: ? 208 ?QRS: ?56 QRSD: ? 117 ?T: ?22 QT: ? 379 ? QTc: ?469 ? Interpretive Statements SINUS RHYTHM WITH OCCASIONAL SUPRAVENTRICULAR PREMATURE COMPLEXES MODERATE INTRAVENTRICULAR CONDUCTION DELAY Procedure Note Jessy Rivera MD - 11/17/2021 [address] [place] [address] Test Date: 2021-11-17 Pat Name: [facility] Department: 1 Room: 628 Gender: Male Talent Solutions Manager: Lauro : 1960 Requested By: JOSHUA YIN Order Number: [id number] Reading MD: Jessy Rivera Measurements Intervals [place] Rate: 92 P: 54 SC: 208 QRS: 56 QRSD: 117 T: 22 QT: 379 QTc: 469 Interpretive Statements SINUS RHYTHM WITH OCCASIONAL SUPRAVENTRICULAR PREMATURE COMPLEXES MODERATE INTRAVENTRICULAR CONDUCTION DELAY us Joshua Yin MD ECG ORDERABLES Final Result Performing Organization Address [facility] Co de Phone Number [facility] * (ABNORMAL) ACT (HMT OR LHMT) (11/17/2021 9:40 AM CDT) ACTIVATED CLOTTING TIME (ACT HMT OR LMT) 323(H) 74 - 137 SEC 11/17/2021 9:[address] [facility] 11/17/2021 9:40 AM CDT us Joshua Yin MD LAB BLOOD ORDERABLES Final Resul t Performing Organization Address [facility] de Phone Number [facility] [address] [place] [address], [place] [phone] * (ABNORMAL) ACT (HMT OR LHMT) (11/17/2021 9:02 AM CDT) ACTIVATED CLOTTING TIME (ACT HMT OR LMT) 364(H) 74 - 137 SEC 11/17/2021 9:[address] [facility] 11/17/2021 9:02 AM CDT us Joshua Yin MD LAB BLOOD ORDERABLES Final Resul t Performing Organization Address [facility] de Phone Number [facility] [address] [place] [address], [place] [phone] * TYPE & SCREEN (11/17/2021 7:02 AM CDT) UNITS ORDERED 4 11/17/2021 7:[address] [facility] ABO/RH B POSITIVE 11/17/2021 8:[address] [facility] ANTIBODY SCREEN NEGATIVE 11/17/2021 8:[address] [facility] SAMPLE EXPIRATION 11/20/2021,2 359 11/17/2021 7:[address] [facility] 11/17/2021 7:02 AM CDT Joshua Yin MD BLOOD BANK TEST ORDERABLES Final Result [facility] [address] [place] [address], [phone] * ECG 12 lead (11/17/2021 6:54 AM CDT) 11/17/2021 6:54 AM CDT Narrative [facility] - 11/17/2021 10:03 AM CDT ?[address] [place], [place] ??[address] ? Test Date: ?2021-11-17 Pat Name: ? ELZA MCKEON ? Department: ?? 1 ? Room: ? [id number] Gender: ? Male ? Talent Solutions Manager: ?? : ?1960 ? Requested By: ZIAD RODNEY Order Number: [id number] ? Reading MD: ?? Jessy Rivera ? Measurements Intervals ?[place] ? Rate: ? 80 ? P: ? SC: ? 0 ?QRS: ?62 QRSD: ? 119 ?T: ?30 QT: ? 426 ? QTc: ?493 ? Interpretive Statements A-Flutter w/ Varied AV Block A-Rate LOW QRS VOLTAGE IN PRECORDIAL LEADS INCOMPLETE RIGHT BUNDLE BRANCH BLOCK Procedure Note Jessy Rivera MD - 11/17/[address] [place] [address] Test Date: 2021-11-17 Pat Name: [facility] Department: 1 Room: [address] Gender: Male Talent Solutions Manager: : 1960 Requested By: JOSHUA YIN Order Number: [id number] Jose Antonio MD: Jessy Rivera Measurements Intervals [place] Rate: 80 P: SC: 0 QRS: 62 QRSD: 119 T: 30 QT: 426 QTc: 493 Interpretive Statements A-Flutter w/ Varied AV Block A-Rate LOW QRS VOLTAGE IN PRECORDIAL LEADS INCOMPLETE RIGHT BUNDLE BRANCH BLOCK Joshua Yin MD ECG ORDERABLES Final Result Performing Organization Address [facility] Co de Phone Number [facility] * ORDER FRESH FROZEN PLASMA, 4 Units (11/17/2021 6:46 AM CDT) UNITS ORDERED 4 11/17/2021 6:[address] [facility] 11/17/2021 6:46 AM CDT Joshua Yin MD BLOOD BANK PRODUCT ORDERABLES Fi nal Result Performing Organization Address [facility] Co de Phone Number [facility] [address] [place] [address], [phone] documented in this encounter Visit Diagnoses Diagnosis Atrial flutter ([facility]) Atrial flutter documented in this encounter Administered [...] [id number] documented in this encounter Care Teams Slasher Tender Helper Relationship Specialty Start Date End [place] [address] PCP - General FAMILY PRACTICE 10/27/15 12/02/21 [place] [address] [place] Sales Management Intern CARDIOVASCULAR DISEASE 08/19/16 Raul Santana MD [address] [place] [address] CLINICAL CARDIAC ELECTROPHYSIOLOGY 06/16/17 Danny Blackwell MD [address] [place] [address] ORTHOPAEDIC SURGERY 05/01/19 Gayle Arce, BARBARA, PRINCIPAL SOFTWARE ARCHITECT-C [address] [facility] [address] [place] [address] NURSE PRACTITIONER 03/03/20 documented as of this encounter
--- OUTSIDE RECORDS SUMMARY | 2024-04-23 05:15 | XMS_ITS | Encounter Summary ---
Author Organization [facility] Address [address] [place] [address]. [place], [place] [address] [place] [address] Care Team Providers Care Outbound Sales Specialist Name Role Phone Evaristo Allan MD Unavailable Unavailabl Raul Duran MD Unavailable Unavailabl Danny Lopes MD Unavailable [phone] Gayle Arce APRN, MILK HAULER-C Unavailable Ti Bonilla MD Primary Care Provider [...] Contact Info) Description 04/25/2024 11:00 AM RETAIL SELLING SPECIALIST Appointment [facility] [address] [place] [address] [place] [address] Ti Bonilla MD [address] [place] [phone] 05/23/2024 3:30 PM RETAIL SELLING SPECIALIST Office Visit [facility] [place] [phone] Jyoti Escobar MD [address] [place] [phone] documented as of this encounter Visit Diagnoses Not on filedocumented in this encounter Care Teams Outbound Sales Specialist Relationship Specialty Start Date End Date Ti Bonilla MD [address] [place] [phone] PCP - General FAMILY PRACTICE 12/03/21 Evaristo Allan MD [place] Soft Sugar Operator Head CARDIOVASCULAR DISEASE 08/19/16 Raul Santana MD CLINICAL CARDIAC ELECTROPHYSIOLOGY 06/16/17 Danny Blackwell MD [address] [place] [address] ORTHOPAEDIC SURGERY 05/01/19 Gayle Arce, BARBARA, MILK HAULER-C [address] [facility] [address] [place] [phone] NURSE PRACTITIONER 03/03/20 documented as of this encounter
--- OUTSIDE RECORDS SUMMARY | 2024-04-23 05:15 | XMS_ITS | Encounter Summary ---
Author Organization [facility] Address [address] [place] [address]. 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 [address] [place] [address] [place] [address] Ti Bonilla MD [address] [place] [phone] 05/23/2024 3:30 PM BUSINESS OBJECTS Office Visit [facility] [place] [phone] Jyoti Escobar MD [address] [place] [address] 679211 documented as of this encounter Visit Diagnoses Not on filedocumented in this encounter Care Teams Manager Logistic Relationship Specialty Start Date End Date Ti Bonilla MD [address] [place] [phone] PCP - General FAMILY PRACTICE 12/03/21 Evaristo Allan MD [place] Icer Finisher CARDIOVASCULAR DISEASE 08/19/16 Raul Santana MD CLINICAL CARDIAC ELECTROPHYSIOLOGY 06/16/17 Danny Blackwell MD 5 [place] [address] ORTHOPAEDIC SURGERY 05/01/19 Gayle Arce, BARBARA, ICT ACCOUNT MANAGER-C 619 [address] [facility] 47 [place] [phone] NURSE PRACTITIONER 03/03/20 documented as of this encounter
--- OUTSIDE RECORDS SUMMARY | 2024-04-23 05:15 | XMS_ITS | Encounter Summary ---
Author Organization [facility] Address [address] [place] [address]. [place], [place] [address] [place] [address] Care Team Providers Care Oil Well Services Field Supervisor Name Role Phone Evaristo Allan MD Unavailable Unavailabl Raul Duran MD Unavailable Unavailabl aDnny Lopes MD Unavailable [phone] Gayle Arce APRN, BRILLIANDEER LOPPER-C Unavailable Ti Bonilla MD Primary Care Provider Encounter Details Date Type Department Care Team (Late st Contact Info) Description 10/20/2022 2:21 PM CDT - 10/20/2022 11:59 PM CDT Hospital Encounter [facility] [address] [place] [address] Olivia Pearson, PRINT COLOR OPERATOR [address] [place] [phone] Discharge Disposition: Home or Self Care (Routine [...] 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 Not on file [...] TRUEPLUS PEN NEEDLES 31G X 8 MM [facility] 01/19/2021 aspirin EC 81 MG [...] Info) Description 04/25/2024 11:00 AM DIGITAL SALES PLANNER Appointment [facility] [address] [place] [address] [place] [address] Ti Bonilla MD [address] [place] [phone] 05/23/2024 3:30 PM DIGITAL SALES PLANNER Office Visit [facility] [place] [phone] Jyoti Escobar MD 619 [place], [place] 198801 documented as of this encounter Visit Diagnoses [...] CDT documented in this encounter Care Teams Oil Well Services Field Supervisor Relationship Specialty Start Date End Date Ti Bonilla MD [address] [place] [phone] PCP - General FAMILY PRACTICE 12/03/21 Evaristo Allan MD [place] Hardwood Floor Installer CARDIOVASCULAR DISEASE 08/19/16 Raul Santana MD CLINICAL CARDIAC ELECTROPHYSIOLOGY 06/16/17 Danny Blackwell MD 5 [place] [address] ORTHOPAEDIC SURGERY 05/01/19 Gayle Arce, RADIOLOGY DIRECTOR, BRILLIANDEER LOPPER-C 619 [facility] [address] [place] [address] NURSE PRACTITIONER 03/03/20 documented as of this encounter
--- OUTSIDE RECORDS SUMMARY | 2024-04-23 05:15 | XMS_ITS | Encounter Summary ---
Author Organization [facility] Address [address] [place] [address]. [place], [place] [address] [place] [address] Care Team Providers Care Personal Lines Appraiser Name Role Phone Evaristo Allan MD Unavailable Unavailabl Raul Duran MD Unavailable Unavailabl Danny Lopes MD Unavailable [phone] Gayle Arce APRN, PLUG WIRER-C Unavailable [phone] Ti Bonilla MD Primary Care Provider [phone] Encounter Details Date Type Department Care Team (Late st Contact Info) Description 10/11/2022 Orders Only [facility] [address] [place] [address] Olivia Pearson, [facility] [address] [place] [address] Social History Tobacco Use Types [...] Info) Description 04/25/2024 11:00 AM MIDDLE SCHOOL FRENCH TEACHER Appointment [facility] [address] [place] [address] Ti Bonilla MD [address] [place] [phone] 05/23/2024 3:30 PM MIDDLE SCHOOL FRENCH TEACHER Office Visit [facility] [address] [place] [address] Jyoti Escobar MD [address] [place] [address] documented as of this encounter Visit Diagnoses Not on filedocumented in this encounter Care Teams Personal Lines Appraiser Relationship Specialty Start Date End Date Ti Bonilla MD 715 [place] [phone] PCP - General FAMILY PRACTICE 12/03/21 Evaristo Allan MD [place] Log Haul Operator CARDIOVASCULAR DISEASE 08/19/16 Raul Santana MD CLINICAL CARDIAC ELECTROPHYSIOLOGY 06/16/17 Danny Blackwell MD 725 [place] [address] ORTHOPAEDIC SURGERY 05/01/19 Gayle Arce, DIRECTOR SURGICAL, PLUG WIRER-C [address] [facility] [address] [place] [address] NURSE PRACTITIONER 03/03/20 documented as of this encounter
--- OUTSIDE RECORDS SUMMARY | 2024-04-23 05:15 | XMS_ITS | Encounter Summary ---
Author Organization [facility] Address [address] [place] [address]. [place], [place] [address] [place] [address] Care Team Providers Care Contract Consultant Name Role Phone Evaristo Allan MD Unavailable Unavailabl Raul Duran MD Unavailable Unavailabl Danny Lopes MD Unavailable [phone] Gayle Arce APRN, SENIOR INTERNET SALES CONSULTANT-C Unavailable Ti Bonilla MD Primary Care [...] st Contact Info) Description 04/25/2024 11:00 AM DUPLEX TRIMMER Appoint[address] [facility] [address] [place] [address] [place] [address] Ti Bonilla MD [address] [place] [phone] 05/23/2024 3:30 PM DUPLEX TRIMMER Office Visit [facility] [place] [phone] Jyoti Escobar MD [address] [place] [address] [phone] documented as of this encounter Visit Diagnoses Not on filedocumented in this encounter Care Teams Contract Consultant Relationship Specialty Start Date End Date Ti Bonilla MD [address] [place] [phone] PCP - General FAMILY PRACTICE 12/03/21 Evaristo Allan MD [place] Representative CARDIOVASCULAR DISEASE 08/19/16 Raul Santana MD CLINICAL CARDIAC ELECTROPHYSIOLOGY 06/16/17 Danny Blackwell MD 5 [place] [address] ORTHOPAEDIC SURGERY 05/01/19 Gayle Arce, BARBARA, SENIOR INTERNET SALES CONSULTANT-C 619 E [facility] 47 [place] [phone] NURSE PRACTITIONER 03/03/20 documented as of this encounter
--- OUTSIDE RECORDS SUMMARY | 2024-04-23 05:15 | XMS_ITS | Encounter Summary ---
Author Organization [facility] Address [address] [place] [address]. 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 Not on [...] st Contact Info) Description 04/25/2024 11:00 AM MOTION PICTURES CARTOONIST Appointment [facility] [address] [place] [address] [place] [address] Ti Bonilla MD [address] [place] [phone] 05/23/2024 3:30 PM MOTION PICTURES CARTOONIST [facility] 1215 [facility] [place] [address] Jyoti Escobar MD [address] [place] [phone] documented as of this encounter Visit Diagnoses Not on filedocumented in this encounter Care Teams Commercial Crabber Relationship Specialty Start Date End Date Ti Bonilla MD [address] [place] [phone] PCP - General FAMILY PRACTICE 12/03/21 Evaristo Allan MD [place] Ad Taker CARDIOVASCULAR DISEASE 08/19/16 Raul Santana MD CLINICAL CARDIAC ELECTROPHYSIOLOGY 06/16/17 Danny Blackwell MD 725 [place] [address] ORTHOPAEDIC SURGERY 05/01/19 Gayle Arce, ERP BUSINESS ANALYST, CLOTH NAPPING SUPERVISOR-C [address] [phone] NURSE PRACTITIONER 03/03/20 documented as of this encounter
--- OUTSIDE RECORDS SUMMARY | 2024-04-23 05:15 | XMS_ITS | Encounter Summary ---
Author Organization [facility] Address [address] [place] [address]. 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 [address] [place] [address] [place] [address] Ti Bonilla MD [address] [place] [phone] 05/23/2024 3:30 PM MAPPING SUPERVISOR Office Visit [facility] [place] [phone] Jyoti Escobar MD [address] [place] [address] 813851 documented as of this encounter Visit Diagnoses Not on filedocumented in this encounter Care Teams Tongue And Groove Machine Setter Relationship Specialty Start Date End Date Ti Bonilla MD [address] [place] [phone] PCP - General FAMILY PRACTICE 12/03/21 Evaristo Allan MD [place] Child Development Teacher CARDIOVASCULAR DISEASE 08/19/16 Raul Santana MD CLINICAL CARDIAC ELECTROPHYSIOLOGY 06/16/17 Danny Blackwell MD 5 [place] [address] ORTHOPAEDIC SURGERY 05/01/19 Gayle Arce, BARBARA, CHRONIC MANAGER-C 619 E [facility] 47 [place] [phone] NURSE PRACTITIONER 03/03/20 documented as of this encounter
--- OUTSIDE RECORDS SUMMARY | 2024-04-23 05:15 | XMS_ITS | Encounter Summary ---
Author Organization [facility] Address [address] [place] [address]. 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 [address] [place] [address] [place] [address] Ti Bonilla MD [address] [place] [phone] 05/23/2024 3:30 PM CASINO FLOORPERSON Office Visit [facility] [place] [phone] Jyoti Escobar MD [address] [place] [address] 949641 documented as of this encounter Visit Diagnoses Not on filedocumented in this encounter Care Teams Special Machine Operator Relationship Specialty Start Date End Date Ti Bonilla MD [address] [place] [phone] PCP - General FAMILY PRACTICE 12/03/21 Evaristo Allan MD [place] Outreach Professional CARDIOVASCULAR DISEASE 08/19/16 Raul Santana MD CLINICAL CARDIAC ELECTROPHYSIOLOGY 06/16/17 Danny Blackwell MD 5 [place] [address] ORTHOPAEDIC SURGERY 05/01/19 Gayle Arce, BARBARA, SPUDDER-C 619 E [facility] 47 [place] [phone] NURSE PRACTITIONER 03/03/20 documented as of this encounter
--- OUTSIDE RECORDS SUMMARY | 2024-04-23 05:15 | XMS_ITS | Encounter Summary ---
Author Organization [facility] Address [address] [place] [address]. [place] [address] [place] [address] Care Team Providers Care Staff Occupational Therapist Name Role Phone Evaristo Allan MD Unavailable Unavailabl Raul Duran MD Unavailable Unavailabl Danny Lopes MD Unavailable [phone] Gayle Arce APRN, ACADEMIC SUPPORT DIRECTOR-C Unavailable Ti Bonilla MD Primary Care Provider Reason for Visit * Reason Onset Date Comments Appointment Reminder 05/07/2022 Encounter Details Date Type Department Care Team ([facility] st Contact Info) Description 05/07/2022 Telephone [facility] [address] [place] [address] Gayle Arce, BARBARA, ACADEMIC SUPPORT DIRECTOR-C 6[address] [facility] [address] [place] [address] Appointment Reminder Social History Tobacco [...] call if needing to cancel or r/s. TECHNICIAN documented in this encounter Plan of Treatment Upcoming Encounters Date Type Department Care Team (Late st Contact Info) Description 04/25/2024 11:00 AM WELD TECHNICIAN Appointment [facility] [address] [place] [address] Ti Bonilla MD [address] [place] [phone] 05/23/2024 3:30 PM WELD TECHNICIAN Office Visit [facility]-[address] [place] [address] Jyoti Escobar MD 619 [place] [address] documented as of this encounter Visit Diagnoses Not on filedocumented in this encounter Care Teams Staff Occupational Therapist Relationship Specialty Start Date End Date Ti Bonilla MD [address] [place] [phone] PCP - General FAMILY PRACTICE 12/03/21 Evaristo Allan MD [place] Laborer Shellfish Processing CARDIOVASCULAR DISEASE 08/19/16 Raul Santana MD CLINICAL CARDIAC ELECTROPHYSIOLOGY 06/16/17 Danny Blackwell MD [address] [place] [address] ORTHOPAEDIC SURGERY 05/01/19 Gayle Arce, TOP SPOTTER, ACADEMIC SUPPORT DIRECTOR-C [address] [place] [address] 4[address] [place] [address] NURSE PRACTITIONER 03/03/20 documented as of this encounter
--- OUTSIDE RECORDS SUMMARY | 2024-04-23 05:15 | XMS_ITS | Encounter Summary ---
Author Organization [facility] Address [address] [place] [address]. [place], [place] [address] [place] [address] Care Team Providers Care Clerical Grader Name Role Phone Evaristo Allan MD Unavailable Unavailabl e Max, Raul Reyes MD Unavailable Unavailabl e , Danny Galo MD Unavailable [phone] Gayle Arce APRN, MACHINE CLOTHING REPLACER-C Unavailable Ti Zamora MD Primary Care Provider [phone] Reason for Referral * Imaging (Routine) - Closed Specialty Diagnoses / Procedures Referred By Contac t Referred To Contact RADIOLOGY Diagnoses Abdominal hernia Procedures CT ABD+PEL W CON Ti Zamora MD [address] [place] [phone] Phone: tel: fax: Referral ID Status Reason Start Date Expiration Date Visits Re quested Visits Authorized [id number] Closed 01/20/2022 03/20/2022 1 1 Reason for Visit * Imaging (Routine) - Closed Specialty Diagnoses / Procedures Referred By Contac t Referred To Contact RADIOLOGY Diagnoses Abdominal hernia Procedures CT ABD+PEL W CON Ti Zamora MD [address] [place] [phone] Phone: tel: fax: Referral ID Status Reason Start Date Expiration Date Visits Re quested Visits Authorized [id number] Closed 01/20/2022 03/20/2022 1 1 Encounter Details Date Type Department Care Team (Latest Contact Info) Description 01/29/2022 7:05 AM CDT - 01/29/2022 11:59 PM CDT 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 Not [...] st Contact Info) Description 04/25/2024 11:00 AM INTERNATIONAL RELATIONS TEACHER Appointment [facility] [address] [place] [address] [place] [address] Ti Zamora MD [address] [place] [phone] 05/23/2024 3:30 PM INTERNATIONAL RELATIONS TEACHER Office Visit [facility] [address] [place] [address] [place] [address] Jyoti Escobar MD [address] [place] [address] documented as of this encounter Procedures Procedure [...] - 1.30 MG/DL 01/29/2022 7:48 AM CDT [facility] GFR ESTIMATE 90 >89 ML/MIN/1. 73 M2 01/29/2022 7:48 AM CDT [facility] GFR NOTES GFR REFERENCE S: 01/29/2022 7:48 AM CDT [facility] Comment: THE ESTIMATED GFR IS CALCULATED [...] Ti Zamora MD LABORATORY Final Resul t [facility] [address] [place] [address], documented in this encounter Visit Diagnoses Diagnosis [...] mLs documented in this encounter Care Teams Clerical Grader Relationship Specialty Start Date End Date Ti Zamora MD [address] [place] [phone] PCP - General FAMILY PRACTICE 12/03/21 Evaristo Allan MD [place] Millwright CARDIOVASCULAR DISEASE 08/19/16 Raul Santana MD CLINICAL CARDIAC ELECTROPHYSIOLOGY 06/16/17 Danny Blackwell MD 725 [place] [address] ORTHOPAEDIC SURGERY 05/01/19 Gayle Arce, BARBARA, MACHINE CLOTHING REPLACER-C [address] [facility] [address] [place] [address] NURSE PRACTITIONER 03/03/20 documented as of this encounter
--- OUTSIDE RECORDS SUMMARY | 2024-04-23 05:15 | XMS_ITS | Encounter Summary ---
Author Organization [facility] Address [address] [place] [address]. [place], [place] [address] [place] [address] Care Team Providers Care Lubrication Supervisor Name Role Phone Evaristo Allan MD Unavailable Unavailabl Raul Duran MD Unavailable Unavailabl e Danny Blackwell MD Unavailable [phone] Gayle Arce APRN, NEWSPAPER CLIPPER-C Unavailable Ti Bonilla MD Primary Care Provider Encounter Details Date Type Department Care Team (Late st Contact Info) Description 12/15/2021 Abstract [facility] BUSINESS OFFICE [address] [place] [address] Abstract, Doc [facility] Social [...] Contact Info) Description 04/25/2024 11:00 AM SUPERVISOR CORE DRILLING Appointment [facility] [address] [place] [address] Ti Bonilla MD [address] [place] [phone] 05/23/2024 3:30 PM SUPERVISOR CORE DRILLING Office Visit [facility] [address] [place] [phone] Jyoti Escobar MD [address] [place] [address] 692191 documented as of this encounter Procedures Procedure Name Priority Date/Time Associated Diagnosis Comments HEMOGLOBIN, GLYCOSYLATED Routine 12/15/2021 documented in this encounter Results * HEMOGLOBIN, GLYCOSYLATED (12/15/2021) HGB A1C 8.1 % 12/15/2021 [facility] Abstract LABORATORY Final Res ult documented in this encounter Visit Diagnoses Not on filedocumented in this encounter Care Teams Lubrication Supervisor Relationship Specialty Start Date End Date Ti Bonilla MD [address] [place] [address] PCP - General FAMILY PRACTICE 12/03/21 Evaristo Allan MD [place] Systems Design Engineer CARDIOVASCULAR DISEASE 08/19/16 Raul Santana MD CLINICAL CARDIAC ELECTROPHYSIOLOGY 06/16/17 Danny Blackwell MD 5 [place] [address] ORTHOPAEDIC SURGERY 05/01/19 Gayle Arce, BUSINESS OBJECTS ANALYST, NEWSPAPER CLIPPER-C 6[address] [facility] [address] [place] [address] NURSE PRACTITIONER 03/03/20 documented as of this encounter
--- OUTSIDE RECORDS SUMMARY | 2024-04-23 05:15 | XMS_ITS | Encounter Summary ---
Author Organization [facility] Address [address] [place] [address]. 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 [address] [place] [address] [place] [address] Ti Bonilla MD [address] [place] [phone] 05/23/2024 3:30 PM ASSISTANT DIRECTOR OF PUBLIC WORKS Office Visit [facility] [place] [phone] Jyoti Escobar MD [address] [place] [phone] documented as of this encounter Visit Diagnoses Not on filedocumented in this encounter Care Teams Medical Art Therapist Relationship Specialty Start Date End Date Ti Bonilla MD [address] [place] [phone] PCP - General FAMILY PRACTICE 12/03/21 Evaristo Allan MD [place] Coin Machine Collector CARDIOVASCULAR DISEASE 08/19/16 Raul Santana MD CLINICAL CARDIAC ELECTROPHYSIOLOGY 06/16/17 Danny Blackwell MD 5 [place] [address] ORTHOPAEDIC SURGERY 05/01/19 Gayle Arce, BARBARA, HEAVY DUTY TRUCK MECHANIC-C 619 E [facility] 47 [place] [phone] NURSE PRACTITIONER 03/03/20 documented as of this encounter
--- OUTSIDE RECORDS SUMMARY | 2024-04-23 05:15 | XMS_ITS | Encounter Summary ---
Author Organization [facility] Address [address] [place] [address]. [place], [place] [address] [place] [address] Care Team Providers Care Water Resource Engineer Name Role Phone Evaristo Allan MD Unavailable Unavailabl e Eve Santana MD Unavailable Unavailabl e , Danny Galo MD Unavailable [phone] Gayle Arce APRN, LINE TENDER FLAKEBOARD-C Unavailable Ti Zamora MD Primary Care Provider Reason for Referral * Imaging (Routine) - Closed Specialty Diagnoses / Procedures Referred By Charito t Referred To Contact RADIOLOGY Diagnoses 3+ pitting edema Acute deep vein thrombosis (DVT) of calf muscle vein of right lower extremity (CMS/HCC HHS/HCC) Procedures USV KEVIN DUPLEX LOW EXT RT Eve Beth DPM [address] [place] [address] Phone: tel: fax: Referral ID Status Reason Start Date Expiration Date Visits Re quested Visits Authorized [id number] Closed 12/31/2021 01/30/2023 1 1 Reason for [...] Description 12/31/2021 9:00 AM CDT Office Visit [facility] - [address], 2nd [place] [address] Eve Beth, DPM [address] [place] [address] Follow Up (Pt is here [...] st Contact Info) Description 04/25/2024 11:00 AM AUDIT PARTNER Appointment [facility] [address] [place] [address] [place] [address] Ti Zamora MD [address] [place] [phone] 05/23/2024 3:30 PM AUDIT PARTNER Office Visit [facility] [address] [place] [address] [place] [address] Jyoti Escobar MD [address] [place] [address] documented as of this encounter Results * [...] Buenrostro MD, 01/22/2022 8:48 AM Eve Beth [facility] Final Resul t documented in this encounter Visit Diagnoses Diagnosis 3+ pitting edema- Primary Acute deep vein thrombosis (DVT) of calf muscle vein of right lower extremity (CMS/HCC HHS/HCC) 3+ pitting edema Acute deep vein thrombosis (DVT) of calf muscle vein of right lower extremity (CMS/HCC HHS/HCC) documented in this encounter Care Teams Water Resource Engineer Relationship Specialty Start Date End Date Ti Zamora MD [address] [place] [phone] PCP - General FAMILY PRACTICE 12/03/21 Evaristo Allan MD Jeddo Receptionist Nurse CARDIOVASCULAR DISEASE 08/19/16 Eve Santana MD CLINICAL CARDIAC ELECTROPHYSIOLOGY 06/16/17 Danny Blackwell MD [address] [place] [address] ORTHOPAEDIC SURGERY 05/01/19 Gayle Arce APRN, LINE TENDER FLAKEBOARD-C [address] [facility] [address] [place] [address] NURSE PRACTITIONER 03/03/20 documented as of this encounter
--- OUTSIDE RECORDS SUMMARY | 2024-04-23 05:16 | XMS_ITS | Encounter Summary ---
Author Organization [facility] Address [address] [place] [address]. [place] [address] [place] [address] Care Team Providers Care Laser Printing Operator Name Role Phone Vernon Mercedes MD Primary Care Provider [phone] Evaristo Allan MD Unavailable UnavailRaul Suresh MD Unavailable Unavailabl Danny Lopes MD Unavailable [phone] Gayle Arce APRN, SALES CLERK-C Unavailable Encounter Details Date Type Department Care Team (Latest Contact Info) Description 11/14/2021 8:17 AM CDT - 11/14/2021 11:59 PM CDT Hospital Encounter [facility] [address] [facility] [place] [address] Joshua Yin MD [address] [place] [address] Discharge Disposition: Home or Self [...] 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 Not on [...] st Contact Info) Description 04/25/2024 11:00 AM BODY SPECIALIST Appointment [facility] [address] [place] [address] Ti Bonilla MD [address] [place] [phone] 05/23/2024 3:30 PM BODY SPECIALIST Office Visit [facility] [address] [place] [phone] Jyoti Escobar MD [address] [place] [phone] documented as of this encounter Procedures Procedure Name Priority Date/Time Associated Diagnosis Comments CORONAVIRUS (COVID 19) Routine 11/14/2021 8:50 AM CDT BASIC METABOLIC PANEL Routine 11/14/2021 8:48 AM CDT Anticoagulated CBC W/DIFF AUTOMATED Routine 11/14/2021 8:48 AM CDT Anticoagulated documented in this encounter Results * CORONAVIRUS (COVID 19) (11/14/2021 8:50 AM CDT) SPEC DESCRIPTION NASAL 11/15/19 10:23 AM CDT [facility] CORONAVIRUS SARS COV 2 PCR (RESP) NEGATIVE NEGATIVE 11/14/2021 6:17 PM CDT [facility] Comment: THE SARS-CoV-2 TEST HAS BEEN AUTHORIZED BY THE FDA UNDER AN EUA FOR USE BY AUTHORIZED LABORATORIES. PERFORMED BY NUCLEIC ACID AMPLIFICATION PCR FIRST TEST NO 11/14/2021 10:23 AM CDT [facility] EMPLOYED IN HEALTHCARE NO 11/14/2021 10:23 AM CDT [facility] SYMPTOMATIC DEFINED BY CDC NO 11/14/2021 10:23 AM CDT [facility] HOSPITALIZATION STATUS NO 11/14/2021 10:23 AM CDT [facility] RESIDENT OF [facility] CARE NO 11/14/2021 10:23 AM CDT [facility] 11/14/2021 8:50 AM CDT Joshua Yin MD MICROBIOLOGY - GENERAL ORDERABLE S Final Result [facility] [address] [place] [address], [place] [phone] [facility] [address] [place] [address], [place] [phone] * (ABNORMAL) CBC W/DIFF AUTOMATED (11/14/2021 8:48 AM CDT) WBC 6.5 4.0 - 10.8 x10'3/uL 11/14/2021 9:02 AM CDT [facility] RBC 4.22(L) 4.50 - 6.10 x10'6/uL 11/14/2021 9:02 AM CDT [facility] HGB 11.3(L) 13.0 - 18.0 G/DL 11/14/2021 9:02 AM CDT [facility] HCT 37.1 37.0 - 52.0 % 11/14/2021 9:02 AM CDT [facility] MCV 87.9 78.0 - 100.0 FL 11/14/2021 9:02 AM CDT [facility] MCH 26.8(L) 27.0 - 31.0 PG 11/14/2021 9:02 AM CDT [facility] MCHC 30.5(L) 33.0 - 36.0 G/DL 11/14/2021 9:02 AM CDT [facility] RDW 15.9(H) 11.5 - 14.5 % 11/14/2021 9:02 AM CDT [facility] PLT 262 150 - 350 x10'3/uL 11/14/2021 9:02 AM CDT [facility] MPV 11.1(H) 7.4 - 10.4 FL 11/14/2021 9:02 AM CDT [facility] DIFFERENTIAL COMMENT NORMAL REFERENCE RANGE NOT ESTABLISHED FOR THE PROPORTIONAL LEUKOCYTE DIFFERENTIAL. 11/14/2021 9:02 AM CDT [facility] SEG NEUTROPHILS 57.3 % 9:02 AM CDT [facility] LYMPHOCYTES 26.9 % 11/14/2021 9:02 AM CDT [facility] MONOCYTES 11.3 % 11/14/2021 9:02 AM CDT [facility] EOSINOPHILS 2.8 % 11/14/2021 9:02 AM CDT [facility] BASOPHILS 1.4 % 11/14/2021 9:02 AM CDT [facility] IMMATURE GRANS % 0.3 % 11/15/19 9:02 AM CDT [facility] NRBC 0.0 % 11/14/2021 9:02 AM CDT [facility] ABS. NEUTROPHILS 3.75 1.60 - 8.30 x10'3/uL 11/14/2021 9:02 AM CDT [facility] ABS. LYMPHOCYTES 1.76 0.80 - 4.70 x10'3/uL 11/14/2021 9:02 AM CDT [facility] ABS. MONOCYTES 0.74 0.00 - 1.50 x10'3/uL 11/14/2021 9:02 AM CDT [facility] ABS. EOSINOPHILS 0.18 0.00 - 0.40 x10'3/uL 11/14/2021 9:02 AM CDT [facility] ABS. BASOPHILS 0.09 0.00 - 0.20 x10'3/uL 11/14/2021 9:02 AM CDT [facility] ABS. IMMATURE GRANULOCYTES 0.02 0.00 - 0.03 x10'3/uL 11/14/2021 9:02 AM CDT [facility] ABS. NUCLEATED RBC'S 0.00 0.00 x10'3/uL 11/14/2021 9:02 AM CDT [facility] 11/14/2021 8:48 AM CDT Joshua Yin MD LABORATORY Final Result [facility] [address] [place] [address], * (ABNORMAL) BASIC METABOLIC PANEL (11/14/2021 8:48 AM CDT) SODIUM S/P/B 140 136 - 145 MMOL/L 11/14/2021 9:17 AM CDT [facility] POTASSIUM S/P/B 4.2 3.5 - 5.1 MMOL/L 11/14/2021 9:17 AM CDT [facility] CHLORIDE S/P/B 104 98 - 107 MMOL/L 11/14/2021 9:17 AM T [facility] CO2 30.2 21.0 - 32.0 MMOL/L 11/14/2021 9:17 AM [facility] GLUCOSE 295(H) 70 - 99 MG/DL 11/14/2021 9:17 AM [facility] Comment: FASTING GLUCOSE 100 TO 125 MG/DL IS CONSISTENT WITH IMPAIRED FASTING GLUCOSE. FASTING GLUCOSE >125 MG/DL IS CONSISTENT WITH DIABETES. RANDOM GLUCOSE >200 MG/DL WITH HYPERGLYCEMIC SYMPTOMS IS CONSISTENT WITH DIABETES. PER ADA GUIDELINES BUN 20 6 - 24 MG/DL 11/14/2021 9:17 AM [facility] CREATININE S/P/B 1.11 0.70 - 1.30 MG/DL 11/14/2021 9:17 AM [facility] CALCIUM S/P/B 9.2 8.4 - 10.5 MG/DL 11/14/2021 9:17 AM [facility] ANION GAP 5.8 5.0 - 15.0 MMOL/L 11/14/2021 9:17 AM [facility] OSMOLALITY (CALC) 304 MOSM/KG 022 9:17 AM [facility] Comment:REFERENCE RANGE NOT ESTABLISHED GFR ESTIMATE 75(L) >89 ML/MIN/1. 73 M2 11/14/2021 9:17 AM [facility] GFR NOTES GFR REFERENCE S: 11/14/2021 9:17 AM [facility] Comment: THE ESTIMATED GFR [...] CDT Joshua Yin MD LABORATORY Final Result [facility] [address] [place] [phone], documented in this encounter Visit Diagnoses Diagnosis Anticoagulated Encounter for long-term (current) use of anticoagulants Pre-op testing Preoperative examination, unspecified documented in this encounter Additional Health Concerns Infection Onset Date Last Indicated Resolved Time COVID-19 Rule Out 11/14/2021 11/14/2021 11/14/2021 6:17 PM CDT documented as of this encounter Care Teams Laser Printing Operator Relationship Specialty Start Date End Date Vernon Mercedes MD [address] [place] [address] PCP - General FAMILY PRACTICE 10/27/15 12/02/21 Evaristo Allan MD [address] [place] [address] [place] Laundry Sorter CARDIOVASCULAR DISEASE 08/19/16 Raul Santana MD [address] [place] [address] CLINICAL CARDIAC ELECTROPHYSIOLOGY 06/16/17 Danny Blackwell MD [address] [place] [address] ORTHOPAEDIC SURGERY 05/01/19 Gayle Arce, OPERATIONS CONSULTANT, SALES CLERK-C [address] [facility] [address] [place] [address] NURSE PRACTITIONER 03/03/20 documented as of this encounter
--- OUTSIDE RECORDS SUMMARY | 2024-04-23 05:16 | XMS_ITS | Encounter Summary ---
Author Organization [facility] Address [address] [place] [address]. [place] [address] [place] [address] Care Team Providers Care Employee Communications Specialist Name Role Phone Vernon Mercedes MD Primary Care Provider Evaristo Allan MD Unavailable Unavailabl Raul Duran MD Unavailable Unavailabl Danny Lopes MD Unavailable [phone] Gayle Arce APRN, MEMORIAL DESIGNER-C Unavailable Reason for Visit * Reason Onset Date Comments Question 11/12/2021 DEXCOM G6 Encounter Details Date Type Department Care Team ([facility] Contact Info) Description 11/12/2021 Telephone [facility] [address] [place] [address] Joshua Yin MD [address] [place] [address] Question (DEXCOM G6) Social History [...] 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 April can be reached [phone]. documented in this encounter Plan of Treatment Upcoming Encounters Date Type Department Care Team (Late st Contact Info) Description 04/25/2024 11:00 AM ASSISTANT MEDIA PLANNER Appointment [facility] [address] [place] [address] Ti Bonilla MD [address] [place] [address] 05/23/2024 3:30 PM ASSISTANT MEDIA PLANNER Office Visit [facility] [address] [place] [phone] Jyoti Escobar MD [address] [place] [address] documented as of this encounter Visit Diagnoses Not on filedocumented in this encounter Additional Health Concerns Infection Onset Date Last Indicated Resolved Time COVID-19 Rule Out 11/14/2021 11/14/2021 11/14/2021 6:17 PM CDT documented as of this encounter Care Teams Employee Communications Specialist Relationship Specialty Start Date End Date Vernon Mercedes MD [address] [place] [phone] PCP - General FAMILY PRACTICE 10/27/15 12/02/21 Evaristo Allan MD [address] [facility] [place] [address] [place] Open End Spinning Operator CARDIOVASCULAR DISEASE 08/19/16 Raul Santana MD [address] [place] [address] CLINICAL CARDIAC ELECTROPHYSIOLOGY 06/16/17 Danny Blackwell MD [address] [place] [address] ORTHOPAEDIC SURGERY 05/01/19 Gayle Arce, BARBARA, MEMORIAL DESIGNER-C [address] [facility] [address] [place] [address] NURSE PRACTITIONER 03/03/20 documented as of this encounter
--- OUTSIDE RECORDS SUMMARY | 2024-04-23 05:16 | XMS_ITS | Encounter Summary ---
Author Organization [facility] Address [address] [place] [address]. 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 [...] Contact Info) Description 04/25/2024 11:00 AM CLOTH PRINTER HELPER Appointment [facility] [address] [place] [address] Ti Bonilla MD [address] [place] [phone] 05/23/2024 3:30 PM CLOTH PRINTER HELPER Office Visit [facility] [address] [place] [phone] Jyoti Escobar MD [address] [place] [address] documented as of this encounter Visit Diagnoses Not on filedocumented in this encounter Additional Health Concerns Infection Onset Date Last Indicated Resolved Time COVID-19 Rule Out 11/14/2021 11/14/2021 11/14/2021 6:17 PM CDT documented as of this encounter Care Teams Java Web Developer Relationship Specialty Start Date End Date Vernon Mercedes MD [address] [place] [address] PCP - General FAMILY PRACTICE 10/27/15 12/02/21 Evaristo Allan MD [address] [place] [address] [place] Chair Car Attendant CARDIOVASCULAR DISEASE 08/19/16 Raul Santana MD [address] [place] [address] CLINICAL CARDIAC ELECTROPHYSIOLOGY 06/16/17 Danny Blackwell MD [address] [place] [address] ORTHOPAEDIC SURGERY 05/01/19 Gayle Arce, BARBARA, COMPUTER GAME TESTER-C [address] [facility] [address] [place] [address] NURSE PRACTITIONER 03/03/20 documented as of this encounter
--- OUTSIDE RECORDS SUMMARY | 2024-04-23 05:16 | XMS_ITS | Encounter Summary ---
Author Organization [facility] Address [address] [place] [address]. [place], [place] [address] [place] [address] Care Team Providers Care Construction Crew Member Name Role Phone Vernon Mercedes MD Primary Care Provider [phone] Evaristo Allan MD Unavailable UnavailRaul Suresh MD Unavailable Unavailabl Danny Lopes MD Unavailable [phone] Gayle Arce APRN, INSTRUCTIONAL MATERIALS DIRECTOR-C Unavailable Encounter Details Date Type Department Care [...] st Contact Info) Description 04/25/2024 11:00 AM BILINGUAL EXECUTIVE ASSISTANT Appointment [facility] [address] [facility] [place] [address] Ti Bonilla MD [address] [place] [phone] 05/23/2024 3:30 PM BILINGUAL EXECUTIVE ASSISTANT Office Visit [facility] [address] [place] [address] Jyoti Escobar MD [address] [place], [place] [address] documented as of this encounter Visit Diagnoses Not on filedocumented in this encounter Care Teams Construction Crew Member Relationship Specialty Start Date End Date Vernon Mercedes MD [address] [place] [address] PCP - General FAMILY PRACTICE 10/27/15 12/02/21 Evaristo Allan MD [address] [place], [place] [address] [address] [place] Russian Language Professor CARDIOVASCULAR DISEASE 08/19/16 Raul Santana MD [facility] [place] [address] CLINICAL CARDIAC ELECTROPHYSIOLOGY 06/16/17 Danny Blackwell MD [address] [place] [address] ORTHOPAEDIC SURGERY 05/01/19 Gayle Arce APRN, INSTRUCTIONAL MATERIALS DIRECTOR-C [address] [facility] [address] [place] [phone] NURSE PRACTITIONER 03/03/20 documented as of this encounter
--- OUTSIDE RECORDS SUMMARY | 2024-04-23 05:16 | XMS_ITS | Encounter Summary ---
Author Organization [facility] Address [address] [place] [address]. [place], [place] [address] [place] [address] Care Team Providers Care Custom Harvester Name Role Phone Vernon Mercedes MD Primary Care Provider [phone] Evaristo Allan MD Unavailable UnavailRaul Suresh MD Unavailable Unavailabl Danny Lopes MD Unavailable [phone] Gayle Arce APRN GRID CASTER-C Unavailable Encounter Details Date Type Department Care Team (Late st Contact Info) Description 06/02/2021 10:05 AM CONSUMER ATTORNEY - 06/02/2021 11:59 PM [facility] Hospital Encounter [facility] [address] [place] [address] Vernon Mercedes MD [address] [place] [address] Discharge Disposition: Home or Self [...] Coronavirus/COVID-19? No / Unsure 06/02/2021 10:06 AM CONSUMER ATTORNEY documented as of this encounter Functional Status [...] NEEDLES 31G X 8 MM [facility] 01/19[facility]2021 aspirin EC 81 MG tablet Take [...] st Contact Info) Description 04/25/2024 11:00 AM CONSUMER ATTORNEY Appointment [facility] [address] [place] [address] Ti Bonilla MD [address] [place] [address] 05/23/2024 3:30 PM CONSUMER ATTORNEY Office Visit [facility] [address] [place] [address] Jyoti Escobar MD [address] [place], [place] [address] documented as of this encounter Procedures Procedure Name Priority Date/Time Associated Diagnosis Comments COMPREHENSIVE METABOLIC PANEL Routine 06/02/2021 10:19 AM CONSUMER ATTORNEY Edema documented in this encounter Results * (ABNORMAL) COMPREHENSIVE METABOLIC PANEL (06/02/2021 10:19 AM CONSUMER ATTORNEY) SODIUM S/P/B 141 136 - 145 MMOL/L 06/02/2021 10:42 AM [facility] POTASSIUM S/P/B 4.3 3.5 - 5.1 MMOL/L 06/02/2021 10:42 AM [facility] CHLORIDE S/P/B 103 98 - 107 MMOL/L 06/02/2021 10:42 AM [facility] CO2 31.5 21.0 - 32.0 MMOL/L 06/02/2021 10:42 AM [facility] GLUCOSE 152(H) 70 - 99 MG/DL 06/02/2021 10:42 AM [facility] Comment: FASTING GLUCOSE 100 TO 125 MG/DL IS CONSISTENT WITH IMPAIRED FASTING GLUCOSE. FASTING GLUCOSE >125 MG/DL IS CONSISTENT WITH DIABETES. RANDOM GLUCOSE >200 MG/DL WITH HYPERGLYCEMIC SYMPTOMS IS CONSISTENT WITH DIABETES. PER ADA GUIDELINES BUN 18 6 - 24 MG/DL 06/02/2021 10:42 AM [facility] CREATININE S/P/B 1.21 0.70 - 1.30 MG/DL 06/02/2021 10:42 AM [facility] CALCIUM S/P/B 8.4 8.4 - 10.5 MG/DL 06/02/2021 10:42 AM [facility] BILIRUBIN TOTAL S/P/B 0.4 0.2 - 1.0 MG/DL 06/02/2021 10:42 AM [facility] Comment: THIS ASSAY IS NOT RECOMMENDED FOR PATIENTS UNDERGOING TREATMENT WITH ELTROMBOPAG DUE TO THE POTENTIAL FOR FALSELY ELEVATED RESULTS. ALKALINE PHOSPHATASE S/P/B 77 45 - 115 U/L 06/02/2021 10:42 AM [facility] AST 21 15 - 37 U/L 06/02/2021 10:42 AM [facility] ALT 37 16 - 63 U/L 06/02/2021 10:42 AM [facility] TOTAL PROTEIN S/P/B 7.2 6.4 - 8.2 G/DL 06/02/2021 10:42 AM [facility] ALBUMIN S/P/B 3.1(L) 3.4 - 5.0 G/DL 06/02/2021 10:42 AM [facility] ANION GAP 6.5 5.0 - 15.0 MMOL/L 06/02/2021 10:42 AM [facility] OSMOLALITY (CALC) 297 MOSM/KG 022 10:42 AM [facility] Comment:REFERENCE RANGE NOT ESTABLISHED EGFR NON-AFR. AMER. 64(L) >89 ML/MIN/1. 73 M2 06/02/2021 10:42 AM [facility] EGFR AFR. AMER. 74(L) >89 ML/MIN/1. 73 M2 06/02/2021 10:42 AM [facility] GFR NOTES GFR REFERENCE S: 06/02/2021 10:42 AM [facility] Comment: THE ESTIMATED GFR IS CALCULATED [...] <15 ml/min/1.73 m2 06/02/2021 10:1 9 AM CONSUMER ATTORNEY Vernon Mercedes MD LABORATORY Final Result [facility] [address] [place] [address], documented in this encounter Visit Diagnoses Diagnosis Edema documented in this encounter Care Teams Custom Harvester Relationship Specialty Start Date End Date Vernon Mercedes MD [address] [place] [address] PCP - General FAMILY PRACTICE 10/27/15 12/02/21 Evaristo Allan MD [facility] [place] [address] [place] Grain Commodity Manager CARDIOVASCULAR DISEASE 08/19/16 Raul Santana MD [facility] [place] [address] CLINICAL CARDIAC ELECTROPHYSIOLOGY 06/16/17 Danny Blackwell MD [address] [place] [address] ORTHOPAEDIC SURGERY 05/01/19 Gayle Arce APRN, GRID CASTER-C [address] [facility] [address] [place] [address] NURSE PRACTITIONER 03/03/20 documented as of this encounter
--- OUTSIDE RECORDS SUMMARY | 2024-04-23 05:16 | XMS_ITS | Encounter Summary ---
Author Organization [facility] Address [address] [place] [address]. [place], [place] [address] [place] [address] Care Team Providers Care Care Nurse Rn Name Role Phone Vernon Mercedes MD Primary Care Provider [phone] Elza Allan MD Unavailable UnavailRaul Suresh MD Unavailable Unavailabl Danny Lopes MD Unavailable [phone] Gayle Arce APRN, COMMANDING OFFICER GARAGE-C Unavailable Encounter Details Date Type Department Care Team (Latest Contact Info) Description 09/08/2021 10:01 AM CDT - 09/08/2021 11:59 PM CDT Hospital Encounter [facility] [address] [facility] [place] [address] Elza Allan MD Discharge Disposition: Home or [...] st Contact Info) Description 04/25/2024 11:00 AM ARCHAEOLOGIST Appointment [facility] [place] [address] Ti Bonilla MD [address] [place] [phone] 05/23/2024 3:30 PM ARCHAEOLOGIST Office Visit [facility] [address] [place] [phone] Jyoti Escobar MD [address] [place] [address] documented as of this encounter Procedures Procedure Name Priority Date/Time Associated Diagnosis Comments ECG 12-LEAD Routine 09/08/2021 10:10 AM CDT Paroxysmal atrial fibrillation (CMS/HCC HHS/HCC) documented in this encounter Results * ECG 12 lead (HOSPITAL PERFORMED ONLY) (09/08/2021 10:10 AM CDT) 09/08/2021 10:1 0 AM CDT Narrative [facility] [place] [facility] - 09/08/2021 12:27 PM CDT ? [facility] ?[address] [place], [place] ??[address] ? Test Date: ?2021-09-08 Pat Name: ? ELZA MCKEON ? Department: ?? 3 ? Room: ? Gender: ? Male ? Electric Milkers Installer: ?? : ?1960 ? Requested By: ELZA ALLAN Order Number: [id number] ? Reading : ?? Leonid Khan ? Measurements Intervals ?[place] ? Rate: ? 79 ? P: ?72 SD: ? 172 ?QRS: ?64 QRSD: ? 120 ?T: ?40 QT: ? 389 ? QTc: ?446 ? Interpretive Statements SINUS RHYTHM RIGHT BUNDLE BRANCH BLOCK Procedure Note Leonid Khan MD - 09/08/[address] [place] [address] Test Date: 2021-09-08 Pat Name: [facility] Department: 3 Room: Gender: Male Electric Milkers Installer: : 1960 Requested By: ELZA ALLAN Order Number: [id number] Jose Antonio OSMAN: Leonid Khan Measurements Intervals [place] Rate: 79 P: 72 SD: 172 QRS: 64 QRSD: 120 T: 40 QT: 389 QTc: 446 Interpretive Statements SINUS RHYTHM RIGHT BUNDLE BRANCH BLOCK us Elza Allan MD ECG ORDERABLES Final Resul t [facility] documented in this encounter Visit Diagnoses Diagnosis Paroxysmal atrial fibrillation (CMS/HCC HHS/HCC) Atrial fibrillation documented in this encounter Care Teams Care Nurse Rn Relationship Specialty Start Date End Date Vernon Mercedes MD [address] [place] [address] PCP - General FAMILY PRACTICE 10/27/15 12/02/21 Elza Allan MD [address] [place] [address] [place] Toby Maker CARDIOVASCULAR DISEASE 08/19/16 Raul Santana MD [facility] [place] [address] CLINICAL CARDIAC ELECTROPHYSIOLOGY 06/16/17 Danny Blackwell MD [address] [place] [address] ORTHOPAEDIC SURGERY 05/01/19 Gayle Arce APRN, COMMANDING OFFICER GARAGE-C [address] [facility] [address] [place] [address] NURSE PRACTITIONER 03/03/20 documented as of this encounter
--- OUTSIDE RECORDS SUMMARY | 2024-04-23 05:16 | XMS_ITS | Encounter Summary ---
Author Organization [facility] Address [address] [place] [address]. [place], [place] [address] [place] [address] Care Team Providers Care Car Carder Name Role Phone Vernon Mercedes MD Primary Care Provider [phone] Evaristo Allan MD Unavailable Unavailabl Raul Duran MD Unavailable Unavailabl Danny Lopes MD Unavailable [phone] Gayle Arce APRN, ONLINE MARKETER-C Unavailable Encounter Details Date Type Department Care Team (Late st Contact Info) Description 05/19/2021 Orders Only [facility] [facility] [place] [address] [place] [address] [place] [address] Social History Tobacco Use Types [...] 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 No / Unsure 05/23/2021 9:00 AM PAINTLESS DENT REPAIR TECHNICIAN documented as of this encounter Functional [...] st Contact Info) Description 04/25/2024 11:00 AM PAINTLESS DENT REPAIR TECHNICIAN Appointment [facility] [address] [place] [address] Ti Bonilla MD [address] [place] [phone] 05/23/2024 3:30 PM PAINTLESS DENT REPAIR TECHNICIAN Office Visit [facility] [address] [place] [phone] Jyoti Escobar MD [address] [place] [phone] documented as of this encounter Visit Diagnoses Not on filedocumented in this encounter Additional Health Concerns Infection Onset Date Last Indicated Resolved Time COVID-19 Rule Out 05/23/2021 05/23/2021 05/25/2021 3:02 PM PAINTLESS DENT REPAIR TECHNICIAN documented as of this encounter Care Teams Car Carder Relationship Specialty Start Date End Date Vernon Mercedes MD [address] [place] [phone] PCP - General FAMILY PRACTICE 10/27/15 12/02/21 Evaristo Allan MD [address] [place] [address] [place] [employer] Developer CARDIOVASCULAR DISEASE 08/19/16 Raul Santana MD [facility] [place] [address] CLINICAL CARDIAC ELECTROPHYSIOLOGY 06/16/17 Danny Blackwell MD [address] [place] [address] ORTHOPAEDIC SURGERY 05/01/19 Gayle Arce, REPAIR ELECTRIC MOTOR ASSEMBLER, ONLINE MARKETER-C [address] [facility] [address] [place] [phone] NURSE PRACTITIONER 03/03/20 documented as of this encounter
--- OUTSIDE RECORDS SUMMARY | 2024-04-23 05:16 | XMS_ITS | Encounter Summary ---
Author Organization [facility] Address [address] [place] [address]. [place] [address] [place] [address] Care Team Providers Care Document Analyst Name Role Phone Vernon Mercedes MD Primary Care Provider [phone] Evaristo Allan MD Unavailable UnavailRaul Suresh MD Unavailable Unavailabl Danny Lopes MD Unavailable [phone] Gayle Arce APRN, AUTOMOTIVE SERVICE ADVISOR-C Unavailable Reason for Visit * Reason Onset Date Comments Problem 09/24/2021 Blood pressure Repeat Call 09/24/2021 Encounter Details Date Type Department Care Team (Late st Contact Info) Description 09/24/2021 Telephone [facility] ield [address] [place] [address] Evaristo Allan MD Problem (Blood [...] 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 I did explain Dr. Allan and Loren [...] succinate [address] a day [address] lAlan in [facility] clinic today Will discuss above with Dr. Allan tomorrow and phone patient back with any other recommendations. Expressed understanding and agrees with this plan * Emma Zepeda - 09/24/2021 12:34 PM CDT PCCLVOICEMAILMESSAGEPCCL VOICE MAIL VM DATE/TIME:09/24/21 CALLER: Patient #: [id number] PROVIDER/NEW PT: Jerrell REASON FOR CALL: I want to tell the nurse what is going on with my blood pressure . REQUEST HANDLED AND HOW: IF NOT HANDLED, ENCOUNTER NOTE SENT TO: Message sent to [facility] documented in this encounter Plan of Treatment Upcoming Encounters Date Type Department Care Team (Late st Contact Info) Description 04/25/2024 11:00 AM CONTROL EQUIPMENT ELECTRICIAN Appointment [facility] [address] [place] [address] Ti Bonilla MD [address] [place] [phone] 05/23/2024 3:30 PM CONTROL EQUIPMENT ELECTRICIAN Office Visit [facility] [address] [place] [address] Jyoti Escobar MD [address] [place] [address] documented as of this encounter Visit Diagnoses Not on filedocumented in this encounter Care Teams Document Analyst Relationship Specialty Start Date End Date Vernon Mercedes MD [address] [place] [phone] PCP - General FAMILY PRACTICE 10/27/15 12/02/21 Evaristo Allan MD [address] [place] [address] [place] [employer] Lead CARDIOVASCULAR DISEASE 08/19/16 Raul Santana MD [address] [place] [address] CLINICAL CARDIAC ELECTROPHYSIOLOGY 06/16/17 Danny Blackwell MD [address] [place] [address] ORTHOPAEDIC SURGERY 05/01/19 Gayle Arce APRN, AUTOMOTIVE SERVICE ADVISOR-C [address] [facility] [address] [place] [address] NURSE PRACTITIONER 03/03/20 documented as of this encounter
--- OUTSIDE RECORDS SUMMARY | 2024-04-23 05:16 | XMS_ITS | Encounter Summary ---
Author Organization [facility] Address [address] [place] [address]. [place], [place] [address] [place] [address] Care Team Providers Care Pilot Teacher Name Role Phone Vernon Mercedes MD Primary Care Provider [phone] Evaristo Allan MD Unavailable UnavailRaul Suresh MD Unavailable Unavailabl Danny Lopes MD Unavailable [phone] Gayle Arce APRN, DIRECTOR STYLE-C Unavailable Encounter Details Date Type Department Care [...] Coronavirus/COVID-19? No / Unsure 06/18/2021 7:40 AM FAMILY PRACTICE PHYSICIAN ASSISTANT documented as of this encounter Functional Status [...] Contact Info) Description 04/25/2024 11:00 AM FAMILY PRACTICE PHYSICIAN ASSISTANT Appointment [facility] [address] [place] [address] Ti Bonilla MD [address] [place] [address] 05/23/2024 3:30 PM FAMILY PRACTICE PHYSICIAN ASSISTANT Office Visit [facility] [address] [place] [address] Jyoti Escobar MD [address] [place] [address] documented as of this encounter Visit Diagnoses Not on filedocumented in this encounter Care Teams Pilot Teacher Relationship Specialty Start Date End Date Vernon Mercedes MD [address] [place] [address] PCP - General FAMILY PRACTICE 10/27/15 12/02/21 Evaristo Allan MD [address] [place] [address] [place] [address] Delivery Service Driver CARDIOVASCULAR DISEASE 08/19/16 Raul Santana MD [address] [place] [address] CLINICAL CARDIAC ELECTROPHYSIOLOGY 06/16/17 Danny Blackwell MD [address] [place] [address] ORTHOPAEDIC SURGERY 05/01/19 Gayle Arce, BULL GANG SUPERVISOR, DIRECTOR STYLE-C [address] [facility] [address] [place] [address] NURSE PRACTITIONER 03/03/20 documented as of this encounter
--- OUTSIDE RECORDS SUMMARY | 2024-04-23 05:16 | XMS_ITS | Encounter Summary ---
Author Organization [facility] Address [address] [place] [address]. [place] [address] [place] [address] Care Team Providers Care Teamcenter Consultant Name Role Phone Vernon Mercedes MD Primary Care Provider [phone] Evaristo Allan MD Unavailable UnavailRaul Suresh MD Unavailable Unavailabl Danny Lopes MD Unavailable [phone] Gayle Arce APRN SHOOK SPLICER-C Unavailable Reason for Referral * Procedure (Routine) - Closed Specialty Diagnoses / Procedures Referred By Contac t Referred To Contact Diagnoses Paroxysmal atrial fibrillation ([facility]) Procedures Cardioversion external Evaristo Allan MD [address] [place] [address] [facility] [address] [place] [address] Phone: tel: fax: Referral ID Status Reason Start Date Expiration Date Visits Re quested Visits Authorized [id number] Closed 08/31/2021 10/01/2022 1 1 Reason for Visit * Reason Onset Date Comments Schedule Test 08/28/2021 cardioversion Encounter Details Date Type Department Care Team ([facility] st Contact Info) Description 08/28/2021 Telephone [facility] ield [address] [place] [address] Evaristo Allan MD Schedule Test [...] vaccine Agrees to have covid testing at [facility] Agree to date/time for DCCV; pre/post procedure happenings discussed Instructed to continue pradaxa as scheduled. All instructions reviewed. EXPRESSED UNDERSTANDING * Loren Iverson RN - 08/31/2021 9:27 AM CDT [...] about it yet. Please call him at [phone] documented in this encounter Plan of Treatment Upcoming Encounters Date Type Department Care Team (Late st Contact Info) Description 04/25/2024 11:00 AM PRESSURE TESTER Appointment [facility] [address] [facility] [place] [address] Ti Bonilla MD [address] [place] [phone] 05/23/2024 3:30 PM PRESSURE TESTER Office Visit [facility] [address] [place] [address] Jyoti Escobar MD [address] [place], [place] [address] documented as of this encounter Visit Diagnoses Diagnosis Paroxysmal atrial fibrillation ([facility]/HCC HHS/HCC)- Primary Atrial fibrillation documented in this encounter Care Teams Teamcenter Consultant Relationship Specialty Start Date End Date Vernon Mercedes MD [address] [place] [phone] PCP - General FAMILY PRACTICE 10/27/15 12/02/21 Evaristo Allan MD [facility] [place] [address] [place] Blood Bank Worker CARDIOVASCULAR DISEASE 08/19/16 Raul Santana MD [facility] [place] [address] CLINICAL CARDIAC ELECTROPHYSIOLOGY 06/16/17 Danny Blackwell MD [address] [place] [address] ORTHOPAEDIC SURGERY 05/01/19 Gayle Arce, DRAFTER COMMERCIAL, SHOOK SPLICER-C [address] [facility] [address] [place] [address] NURSE PRACTITIONER 03/03/20 documented as of this encounter
--- OUTSIDE RECORDS SUMMARY | 2024-04-23 05:16 | XMS_ITS | Encounter Summary ---
Author Organization [facility] Address [address] [place] [address]. 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 Not [...] st Contact Info) Description 04/25/2024 11:00 AM NORMALIZER Appointment [facility] [address] [place] [address] Ti Bonilla MD [address] [place] [phone] 05/23/2024 3:30 PM NORMALIZER Office Visit [facility] [address] [place] [address] Jyoti Escobar MD [address] [place] [address] documented as of this encounter Visit Diagnoses Not on filedocumented in this encounter Care Teams Retail Shift Leader Relationship Specialty Start Date End Date Vernon Mercedes MD [address] [place] [address] PCP - General FAMILY PRACTICE 10/27/15 12/02/21 Evaristo Allan MD [address] [place] [address] [place] Crew Supervisor CARDIOVASCULAR DISEASE 08/19/16 Raul Santana MD [address] [place] [address] CLINICAL CARDIAC ELECTROPHYSIOLOGY 06/16/17 Danny Blackwell MD [address] [place] [address] ORTHOPAEDIC SURGERY 05/01/19 Gayle Arce, BARBARA, BUFFING AND POLISHING WHEEL REPAIRER-C [address] [facility] [address] [place] [address] NURSE PRACTITIONER 03/03/20 documented as of this encounter
--- OUTSIDE RECORDS SUMMARY | 2024-04-23 05:16 | XMS_ITS | Encounter Summary ---
Author Organization [facility] Address [address] [place] [address]. [place], [place] [address] [place] [address] Care Team Providers Care Employment Advisor Name Role Phone Vernon Mercedes MD Primary Care Provider [phone] Evaristo Allan MD Unavailable Unavailabl e Raul Santana MD Unavailable Unavailabl e Danny Blackwell MD Unavailable [phone] Gayle Arce APRN, MEDICAL LIBRARIAN-C Unavailable [phone] Reason for Referral * Imaging (Urgent) - Closed Specialty Diagnoses / Procedures Referred By Contac t Referred To Contact RADIOLOGY Diagnoses Microscopic hematuria Procedures CT ABD+PEL WWO CON Ana Moreno III, MD Phone: tel: fax: Referral ID Status Reason Start Date Expiration Date Visits Re quested Visits Authorized [id number] Closed 05/19/2021 06/16/2022 1 1 ER HAND Reason for Visit * Imaging (Urgent) - Closed Specialty Diagnoses / Procedures Referred By Contac t Referred To Contact RADIOLOGY Diagnoses Microscopic hematuria Procedures CT ABD+PEL WWO CON Ana Moreno III, MD Phone: tel: fax: Referral ID Status Reason Start Date Expiration Date Visits Re quested Visits Authorized [id number] Closed 05/19/2021 06/16/2022 1 1 Encounter Details Date Type Department Care Team (Latest Contact Info) Description 05/25/2021 7:06 AM TUFTER HAND - 05/25/2021 4:01 PM TUFTER HAND Hospital Encounter [place] [facility] [address] [facility] [place] [place] [address] [place] [address] [place] [address] Discharge Disposition: Home or Self Care (Routine [...] 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 No / Unsure 05/25/2021 7:02 AM TUFTER HAND documented as of this encounter Functional Status [...] st Contact Info) Description 04/25/2024 11:[address] [facility] [address] [place] [address] [place] [address] Ti Bonilla MD [address] [place] [phone] 05/23/2024 3:30 PM TUFTER HAND Office Visit [facility] [address] [place] [address] [place] [address] Jyoti Escobar MD [address] [place] [address] documented as of this encounter Procedures Procedure Name Priority Date/Time Associated Diagnosis Comments CT ABD+PEL WWO CON DAVY 05/25/2021 8: 06 AM TUFTER HAND Microscopic hematuria CREATININE STAT 05/25/2021 7:35 AM TUFTER HAND documented in this encounter Results * CT ABD+PEL WWO CON (05/25/2021 8:06 AM TUFTER HAND) Anatomical Region Laterality Modality Abdomen Computed Tomogra phy 05/25/2021 8:56 AM TUFTER HAND Impressions 05/25/2021 9:25 AM TUFTER HAND IMPRESSION: 1. ?? No clear explanation for the patient's hematuria. ??No suspicious renal or ureteral or bladder lesion. ??Consider follow-up urology consultation and cystoscopy if clinically indicated. 2. ??2 nonobstructing stones on the left. ??Tiny angiomyolipoma right kidney. 3. ??Atherosclerosis and coronary calcifications. 4. ??No free fluid or free air. ??Appendix normal. Referred By: [facility] Interpreted By: Nam Streeter MD, 05/25/2021 8:56 AM Narrative 05/25/2021 9:25 AM TUFTER HAND EXAMINATION: CT ABDOMEN PELVIS WITH AND WITHOUT [...] sult * (ABNORMAL) CREATININE (05/25/2021 7:35 AM TUFTER HAND) CREATININE S/P/B 0.99 0.70 - 1.30 MG/DL 05/25/2021 7:48 AM TUFTER HAND [facility] EGFR NON-AFR. AMER. 81(L) >89 ML/MIN/1. 73 M2 05/25/2021 7:48 AM TUFTER HAND [facility] EGFR AFR. AMER. >90 >89 ML/MIN/1. 73 M2 05/25/2021 7:48 AM TUFTER HAND [facility] GFR NOTES GFR REFERENCE S: 05/25/2021 7:48 AM TUFTER HAND [facility] Comment: THE ESTIMATED [...] FAILURE: <15 ml/min/1.73 m2 05/25/2021 7:35 AM TUFTER HAND Ana Moreno III, MD LABORATORY Final Re sult [facility] [address] [place] [address], documented in this encounter Visit Diagnoses Diagnosis [...] Tue05/25/21 at 0757 Given 05/25/2021 7:57 AM TUFTER HAND 92 mLs Right Arm documented in this encounter Additional Health Concerns Infection Onset Date Last Indicated Resolved Time COVID-19 Rule Out 05/23/2021 05/23/2021 05/25/2021 3:02 PM TUFTER HAND documented as of this encounter Care Teams Employment Advisor Relationship Specialty Start Date End Date Vernon Mercedes MD [address] [place] [phone] PCP - General FAMILY PRACTICE 10/27/15 12/02/21 Evaristo Allan MD [facility] [place] [address] [place] [employer] Manufacturing Operator CARDIOVASCULAR DISEASE 08/19/16 Raul Santana MD [facility] [place] [address] CLINICAL CARDIAC ELECTROPHYSIOLOGY 06/16/17 Danny Blackwell MD [address] [place] [address] ORTHOPAEDIC SURGERY 05/01/19 Gayle Arce, PRESS READER, MEDICAL LIBRARIAN-C [address] [facility] [address] [place] [phone] NURSE PRACTITIONER 03/03/20 documented as of this encounter
--- OUTSIDE RECORDS SUMMARY | 2024-04-23 05:16 | XMS_ITS | Encounter Summary ---
Author Organization [facility] Address [address] [place] [address]. [place], [place] [address] [place] [address] Care Team Providers Care Regulator Assembler Name Role Phone Vernon Mercedes MD Primary Care Provider [phone] Evaristo Allan MD Unavailable Unavailabl Raul Duran MD Unavailable Unavailabl Danny Lopes MD Unavailable [phone] Gayle Arce APRN, SHADE CLOTH FINISHER-C Unavailable Encounter Details Date Type Department Care Team (Latest Contact Info) Description 05/23/2021 9:00 AM WINDOWS AND DOORS INSTALLER - 05/23/2021 11:59 PM [facility] Hospital Encounter [facility] [address] [facility] [place] [address] [place] [address] [place] [phone] Discharge Disposition: Home or Self Care [...] 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 No / Unsure 05/23/2021 9:00 AM WINDOWS AND DOORS INSTALLER documented as of this encounter Functional Status [...] st Contact Info) Description 04/25/2024 11:00 AM WINDOWS AND DOORS INSTALLER Appointment [facility] [address] [place] [address] Ti Bonilla MD [address] [place] [phone] 05/23/2024 3:30 PM WINDOWS AND DOORS INSTALLER Office Visit [facility] [address] [place] [phone] Jyoti Escobar MD [address] [place], [place] [address] documented as of this encounter Visit Diagnoses Diagnosis Pre-operative laboratory examination Pre-procedural laboratory examination documented in this encounter Additional Health Concerns Infection Onset Date Last Indicated Resolved Time COVID-19 Rule Out 05/23/2021 05/23/2021 05/25/2021 3:02 PM WINDOWS AND DOORS INSTALLER documented as of this encounter Care Teams Regulator Assembler Relationship Specialty Start Date End Date Vernon Mercedes MD [address] [place] [address] PCP - General FAMILY PRACTICE 10/27/15 12/02/21 Evaristo Allan MD [address] [place] [address] [place] Refractory Technician CARDIOVASCULAR DISEASE 08/19/16 Raul Santana MD [facility] [place] [address] CLINICAL CARDIAC ELECTROPHYSIOLOGY 06/16/17 Danny Blackwell MD 5 [place] [address] ORTHOPAEDIC SURGERY 05/01/19 Gayle Arce APRN, SHADE CLOTH FINISHER-C [address] [facility] [address] [place] [address] NURSE PRACTITIONER 03/03/20 documented as of this encounter
--- OUTSIDE RECORDS SUMMARY | 2024-04-23 05:16 | XMS_ITS | Encounter Summary ---
Author Organization [facility] Address [address] [place] [address]. 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 Not on [...] Contact Info) Description 04/25/2024 11:00 AM METAL COATER Appointment [facility] [address] [place] [address] Ti Bonilla MD [address] [place] [phone] 05/23/2024 3:30 PM METAL COATER Office Visit [facility] [address] [place] [phone] Jyoti Escobar MD [address] [place] [address] documented as of this encounter Visit Diagnoses Not on filedocumented in this encounter Additional Health Concerns Infection Onset Date Last Indicated Resolved Time COVID-19 Rule Out 08/31/2021 08/31/2021 09/01/2021 8:03 PM CDT documented as of this encounter Care Teams Corporate Quality Engineer Relationship Specialty Start Date End Date Vernon Mercedes MD [address] [place] [address] PCP - General FAMILY PRACTICE 10/27/15 12/02/21 Evaristo Allan MD [address] [place] [address] [place] Welfare Project Manager CARDIOVASCULAR DISEASE 08/19/16 Raul Santana MD [address] [place] [address] CLINICAL CARDIAC ELECTROPHYSIOLOGY 06/16/17 Danny Blackwell MD 5 [place] [address] ORTHOPAEDIC SURGERY 05/01/19 Gayle Arce, BARBARA, LEGAL PRACTICE MANAGER-C [address] [facility] [address] [place] [address] NURSE PRACTITIONER 03/03/20 documented as of this encounter
--- OUTSIDE RECORDS SUMMARY | 2024-04-23 05:16 | XMS_ITS | Encounter Summary ---
Author Organization [facility] Address [address] [place] [address]. [place] [address] [place] [address] Care Team Providers Care Trials Manager Name Role Phone Vernon Mercedes MD Primary Care Provider [phone] Evaristo Allan MD Unavailable Unavailabl Raul Duran MD Unavailable Unavailabl Danny Lopes MD Unavailable [phone] Gayle Arce APRN, SHELVING SUPERVISOR-C Unavailable Reason for Visit * Reason Onset Date Comments Reschedule 08/05/2021 No show Encounter Details Date Type Department Care Team (Late st Contact Info) Description 08/05/2021 Telephone [facility] [address] [place] [address] Evaristo Allan MD Reschedule (No [...] 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 Not [...] Author Status Yes 10/15/2019 4:47 PM MIKKIT Kyalyn Cohen RN Active * Do you have [...] st Contact Info) Description 04/25/2024 11:00 AM SHEET METAL SHOP HELPER Appointment [facility] [address] [place] [address] Ti Bonilla MD [address] [place] [phone] 05/23/2024 3:30 PM SHEET METAL SHOP HELPER Office Visit [facility] [address] [place] [address] Jyoti Escobar MD [address] [place] [address] documented as of this encounter Visit Diagnoses Not on filedocumented in this encounter Care Teams Trials Manager Relationship Specialty Start Date End Date Vernon Mercedes MD [address] [place] [address] PCP - General FAMILY PRACTICE 10/27/15 12/02/21 Evaristo Allan MD [address] [place] [address] [place] Genetic Counselor CARDIOVASCULAR DISEASE 08/19/16 Raul Santana MD [address] [place] [address] CLINICAL CARDIAC ELECTROPHYSIOLOGY 06/16/17 Danny Blackwell MD [address] [place] [address] ORTHOPAEDIC SURGERY 05/01/19 Gayle Arce, SUGAR CANE PLANTING EQUIPMENT OPERATOR, SHELVING SUPERVISOR-C [address] [facility] [address] [place] [address] NURSE PRACTITIONER 03/03/20 documented as of this encounter
--- OUTSIDE RECORDS SUMMARY | 2024-04-23 05:16 | XMS_ITS | Encounter Summary ---
Author Organization [facility] Address [address] [place] [address]. [place], [place] [address] [place] [address] Care Team Providers Care Talent Acquisition Associate Name Role Phone Vernon Mercedes MD Primary Care Provider [phone] Evaristo Allan MD Unavailable UnavailRaul Suresh MD Unavailable Unavailabl Danny Lopes MD Unavailable [phone] Gayle Arce APRN, DRIVER MEDIC-C Unavailable [phone] Encounter Details Date Type Department Care Team [...] Coronavirus/COVID-19? No / Unsure 05/26/2021 9:27 AM BROKERAGE CLERK documented as of this encounter Functional Status [...] st Contact Info) Description 04/25/2024 11:00 AM BROKERAGE CLERK Appointment [facility] [address] [place] [address] Ti Bonilla MD [address] [place] [phone] 05/23/2024 3:30 PM BROKERAGE CLERK Office Visit [facility] [address] [place] [phone] Jyoti Escobar MD [address] [place] [address] documented as of this encounter Visit Diagnoses Not on filedocumented in this encounter Additional Health Concerns Infection Onset Date Last Indicated Resolved Time COVID-19 Rule Out 05/25/2021 05/25/2021 05/26/2021 3:50 AM BROKERAGE CLERK documented as of this encounter Care Teams Talent Acquisition Associate Relationship Specialty Start Date End Date Vernon Mercedes MD [address] [place] [phone] PCP - General FAMILY PRACTICE 10/27/15 12/02/21 Evaristo Allan MD 12[address] [facility] [address] [place] Manager Process Improvement CARDIOVASCULAR DISEASE 08/19/16 Raul Santana MD [address] [place] [address] CLINICAL CARDIAC ELECTROPHYSIOLOGY 06/16/17 Danny Blackwell MD 5 [place] [address] ORTHOPAEDIC SURGERY 05/01/19 Gayle Arce, BARBARA, DRIVER MEDIC-C [address] [facility] [address] [place] [address] NURSE PRACTITIONER 03/03/20 documented as of this encounter
--- OUTSIDE RECORDS SUMMARY | 2024-04-23 05:16 | XMS_ITS | Encounter Summary ---
Author Organization [facility] Address [address] [place] [address]. [place], [place] [address] [place] [address] Care Team Providers Care Local Company Hazmat Driver Name Role Phone Ton Delgado MD Primary Care Provider [phone] Evaristo Allan MD Unavailable UnavailRaul Suresh MD Unavailable Unavailabl Danny Lopes MD Unavailable [phone] Gayle Arce APRN, TECHNICAL ADMINISTRATOR-C Unavailable [phone] Reason for Visit * Reason Comments Follow Up Encounter Details Date Type Department Care Team (Late st Contact Info) Description 08/27/2021 11:15 AM CDT Office Visit [facility] [place] [phone] Evaristo Allan MD Follow Up Social History [...] 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 CARDIAC CATHETERIZATION 11/13/2018 ??? FRACTURE SURGERY ??? 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 HERNIA REPAIR ??? JOINT REPLACEMENT ??? KNEE ARTHROPLASTY Bilateral ??? LITHOTRIPSY ??? XA ABLATION 05/19/2016 ??? XA CORONARY INTERVENTION 03/24/2018 ANDROID SOFTWARE ENGINEER PCI-mid RCA Social History Tobacco Use ??? [...] history of coronary artery disease, status post ANDROID SOFTWARE ENGINEER PCI on 03/24/2018; atrial fibrillation, status post [...] modification will be important in Mr. [place] [facility] care. I have recommended the following to [...] should he have any questions or problems. #[id number] /JUAN CARLOS documented in this encounter Plan of Treatment Upcoming Encounters Date Type Department Care Team (Late st Contact Info) Description 04/25/2024 11:00 AM PROCEDURE WRITER Appointment [facility] [address] [place] [address] [place] [address] Ti Bonilla MD [address] [place] [phone] 05/23/2024 3:30 PM PROCEDURE WRITER Office Visit [facility] [address] [place] [address] Jyoti Escobar MD [address] [place] [address] documented as of this encounter Visit Diagnoses Diagnosis Atrial flutter, unspecified type ([facility] Primary Paroxysmal atrial fibrillation ([facility]) Atrial fibrillation S/P ablation of atrial fibrillation Other postprocedural status Coronary artery disease involving paskenta coronary artery of p[place]enta heart, unspecified whether angina present S/P coronary [...] documented as of this encounter Care Teams Local Company Hazmat Driver Relationship Specialty Start Date End Date Ton Delgado MD [address] [place] [address] PCP - General FAMILY PRACTICE 10/27/15 12/02/21 Evaristo Allan MD [facility] [place] [address] [place] [employer] Fleshing Machine Operator CARDIOVASCULAR DISEASE 08/19/16 [place] [address] CLINICAL CARDIAC ELECTROPHYSIOLOGY 06/16/17 Danny Blackwell MD 5 [place], [place] [phone] ORTHOPAEDIC SURGERY 05/01/19 Gayle Arce APRN, TECHNICAL ADMINISTRATOR-C [address] [facility] [address] [place] [address] NURSE PRACTITIONER 03/03/20 documented as of this encounter
--- OUTSIDE RECORDS SUMMARY | 2024-04-23 05:16 | XMS_ITS | Encounter Summary ---
Author Organization [facility] Address [address] [place] [address]. [place], [place] [address] [place] [address] Care Team Providers Care Desktop Support Consultant Name Role Phone Ton Mercedes MD Primary Care Provider [phone] Elza Allan MD Unavailable Unavailabl Raul Duran MD Unavailable Unavailabl Danny Lopes MD Unavailable [phone] Gayle Arce APRN, PRESCHOOL HEAD TEACHER-C Unavailable Encounter Details Date Type Department Care Team (Late st Contact Info) Description 05/19/2021 Orders Only [facility] [facility] [place] [address] [place] [address] [place] [address] Social History Tobacco Use Types [...] 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 No / Unsure 05/23/2021 9:00 AM OXYGEN EQUIPMENT TECHNICIAN documented as of this encounter Functional [...] st Contact Info) Description 04/25/2024 11:00 AM OXYGEN EQUIPMENT TECHNICIAN Appointment [facility] [address] [place] [address] Ti Bonilla MD [address] [place] [phone] 05/23/2024 3:30 PM OXYGEN EQUIPMENT TECHNICIAN Office Visit [facility] [address] [place] [phone] Jyoti Escobar MD [address] [place] [address] documented as of this encounter Results * BLADDER CANCER, FISH (05/19/2021 12:00 PM OXYGEN EQUIPMENT TECHNICIAN) SPECIMEN SOURCE URINE 2 1:11 PM OXYGEN EQUIPMENT TECHNICIAN [facility] CLINICAL INDICATION UNKNOWN 05/19/2021 1:11 PM OXYGEN EQUIPMENT TECHNICIAN [facility] PRIOR THERAPY/TRANSPLAN T UNKNOWN 05/19/2021 1:11 PM OXYGEN EQUIPMENT TECHNICIAN [facility] PHYSICIAN PHONE UNKNOWN 2 1:11 PM OXYGEN EQUIPMENT TECHNICIAN [facility] CLIENT PHONE UNKNOWN 05/19/2021 1:11 PM [facility] FISH BLADDER CANCER VOIDED URI REPORT 05/26/2021 10:39 AM OXYGEN EQUIPMENT TECHNICIAN [employer] KRYSTYNA BARROW Comment: Order ID: ? [id number] Specimen Type: ?Urine Clinical Indication: ?Not provided RESULT: NEGATIVE RESULT FOR THE UROVYSION FISH ASSAY INTERPRETATION: A normal hybridization pattern was observed for chromosomes 3, 7, 9, and 17. This result is not indicative of bladder cancer according to the UroVysion Directional Insert (Plug.dj/[employer]). Although the UroVysion test was designed to [...] as a POSITIVE result. Lucila Norman, Ph.D., [facility], Gamb Cutter, Cytogenetics and Genomics, Electronic Signature: ? 05/26/2021 10:53 AM Test Performed by Pino Thomason, [employer] [facility], [address] [place], [place] Crow Aldana M.D., Ph.D., Director of Laboratories , [facility] [id number] URINE SPECIMEN / Unknown 05/19/2021 12:00 PM OXYGEN EQUIPMENT TECHNICIAN Ana Moreno III, MD PATHOLOGY/CYTOLOGY ORDER LONG Final Result Performing Organization Address City/[facility]/ZIP Co de Phone Number [employer] [facility] [address] [place], [place] , [place] [phone] [facility] [address] [place] [address], [place] [phone] * CULTURE URINE (05/19/2021 12:00 PM OXYGEN EQUIPMENT TECHNICIAN) SPEC DESCRIPTION URINE CLEAN CATCH 05/19/2021 1:08 PM OXYGEN EQUIPMENT TECHNICIAN [facility] SPECIAL REQUESTS NO SPECIAL REQUEST 05/19/2021 1:08 PM OXYGEN EQUIPMENT TECHNICIAN [facility] CULTURE RESULT FEW CONTAMINANTS 06/2021 1:16 PM OXYGEN EQUIPMENT TECHNICIAN [facility] URINE SPECIMEN OBTAINED BY CLEAN CATCH PROCEDURE / Unknown 05/19/2021 12:00 PM OXYGEN EQUIPMENT TECHNICIAN 05/19/2021 1:10 PM OXYGEN EQUIPMENT TECHNICIAN Ana Moreno III, MD MICROBIOLOGY - GENERAL O RDERABLES Final Result [facility] [address] [place] [address], [place] [phone] [facility] [address] [place] [address], [place] [phone] * (ABNORMAL) URINALYSIS (05/19/2021 12:00 PM OXYGEN EQUIPMENT TECHNICIAN) COLOR (U) YELLOW 05/19/2021 1:24 PM OXYGEN EQUIPMENT TECHNICIAN [facility] TRANSPARENCY CLEAR 05/19/2021 1:24 PM OXYGEN EQUIPMENT TECHNICIAN [facility] SPECIFIC GRAVITY (U) 1.010 1.000 - 1.025 05/19/2021 1:24 PM OXYGEN EQUIPMENT TECHNICIAN [facility] U PH 5.5 5.0 - 8.0 05/19/2021 1:24 PM OXYGEN EQUIPMENT TECHNICIAN [facility] LEUKOCYTES (U) NEGATIVE NEGATIVE 05/19/2021 1:24 PM OXYGEN EQUIPMENT TECHNICIAN [facility] NITRITES NEGATIVE NEGATIVE 05/19/2021 1:24 PM OXYGEN EQUIPMENT TECHNICIAN [facility] PROTEIN (U) NEGATIVE NEGATIVE 05/19/2021 1:24 PM OXYGEN EQUIPMENT TECHNICIAN [facility] URINE GLUCOSE 3+(A) NEGATIVE 05/19/2021 1:24 PM OXYGEN EQUIPMENT TECHNICIAN [facility] KETONES MG/DL (U) NEGATIVE NEGATIVE 05/19/2021 1:24 PM OXYGEN EQUIPMENT TECHNICIAN [facility] UROBILINOGEN 0.2 <1.0 EU/DL 05/19/2021 1:24 PM OXYGEN EQUIPMENT TECHNICIAN [facility] BILIRUBIN (U) NEGATIVE NEGATIVE 05/19/2021 1:24 PM [facility] BLOOD (U) NEGATIVE NEGATIVE 05/19/2021 1:24 PM OXYGEN EQUIPMENT TECHNICIAN [facility] WBC/HPF 0-5 0 - 5 /HPF 05/19/2021 1:24 PM OXYGEN EQUIPMENT TECHNICIAN [facility] RBC/HPF 0-5 0 - 5 /HPF 05/19/2021 1:24 PM OXYGEN EQUIPMENT TECHNICIAN [facility] EPI/HPF OCCASIONAL /LPF 05/19/2021 1:24 PM OXYGEN EQUIPMENT TECHNICIAN [facility] BACTERIA (U) TRACE /HPF 05/19/2021 1:24 PM [facility] URINE SPECIMEN OBTAINED BY CLEAN CATCH PROCEDURE / Unknown 05/19/2021 12:00 PM OXYGEN EQUIPMENT TECHNICIAN us Ana Moreno III, MD URINE ORDERABLES Final R esult [facility] [address] [place], [place] [address] [place] [address], * CYTOLOGY GENERIC (05/19/2021 12:00 AM OXYGEN EQUIPMENT TECHNICIAN) CYTOLOGY OTHER [facility] ? Department of Laboratory Medicine ?[address] [facility] ?[place] [address] ? , extension [phone] ? Pathology Report ? Non-gynecologic Cytology Report Name: ELZA MCKEON ?Specimen #: [id number] Age: 9 1960 (Age: 61) ?Location: [facility] Sex: M ?Procedure Date: 05/19/2021 Hospital #: [id number] ?Date Received: 05/21/2021 Date Reported: 05/25/2021 Provider: ANA MORENO III, MD ?TON MERCEDES MD Source: URINE, VOIDED Clinical History: Hematuria Gross Description: SPECIMEN RECEIVED: ? 40 cc's of light yellow fluid ? SLIDES PREPARED: ?1 ThinPrep ?STAINS: ? Papanicolaou This case was interpreted and signed out at [facility], [address] [facility], [place], [place], Count includes the [facility]. FINAL DIAGNOSIS: URINE, VOIDED: ? - ADEQUATE FOR EVALUATION. ? - NEGATIVE FOR HIGH-GRADE UROTHELIAL CARCINOMA. Electronically Signed Out ? DAVID ZAMORA MD [facility] 05/19/2021 05/21/2021 12: 43 PM OXYGEN EQUIPMENT TECHNICIAN Comment:URINE, VOIDED us Ana Moreno III, MD PATHOLOGY/CYTOLOGY ORDER LONG Final Result Performing Organization Address City/State/[facility] Co de Phone Number [facility] [address] [place] [address], [phone] documented in this encounter Visit Diagnoses Diagnosis Microscopic hematuria- Primary documented in this encounter Additional Health Concerns Infection Onset Date Last Indicated Resolved Time COVID-19 Rule Out 05/23/2021 05/23/2021 05/25/2021 3:02 PM OXYGEN EQUIPMENT TECHNICIAN documented as of this encounter Care Teams Desktop Support Consultant Relationship Specialty Start Date End [place] [address] PCP - General FAMILY PRACTICE 10/27/15 12/02/21 [place] [address] [place] Senior Technical Editor CARDIOVASCULAR DISEASE 08/19/16 Raul Santana MD [facility] [place] [address] CLINICAL CARDIAC ELECTROPHYSIOLOGY 06/16/17 Danny Blackwell MD [address] [place] [address] ORTHOPAEDIC SURGERY 05/01/19 Gayle Arce, ROOM SERVICE WAITER, PRESCHOOL HEAD TEACHER-C [address] [facility] [address] [place] [address] NURSE PRACTITIONER 03/03/20 documented as of this encounter
--- OUTSIDE RECORDS SUMMARY | 2024-04-23 05:16 | XMS_ITS | Encounter Summary ---
Author Organization [facility] Address [address] [place] [address]. [place], [place] [address] [place] [address] Care Team Providers Care Production Team Member Name Role Phone Vernon Mercedes MD Primary Care Provider [phone] Elza Allan MD Unavailable Unavailabl Raul Duran MD Unavailable Unavailabl Danny Lopes MD Unavailable [phone] Gayle Arce APRN ARCHEOLOGIST-C Unavailable Reason for Referral * Procedure (Routine) - Closed Specialty Diagnoses / Procedures Referred By Charito t Referred To Contact Diagnoses Paroxysmal atrial fibrillation ([facility]/HCC HHS/HCC) Procedures Cardioversion external Elza Allan MD [address] [place] [address] [place] [address] [place] [address] Phone: tel: fax: Referral ID Status Reason Start Date Expiration Date Visits Re quested Visits Authorized [id number] Closed 08/31/2021 10/01/2022 1 1 Reason for Visit * Procedure (Routine) - Closed Specialty Diagnoses / Procedures Referred By Charito ledbetter Referred To Contact Diagnoses Paroxysmal atrial fibrillation ([facility] HHS/HCC) Procedures Cardioversion external Elza Allan MD [address] [place] [address] [place] [address] [place] [address] Phone: tel: fax: Referral ID Status Reason Start Date Expiration Date Visits Re quested Visits Authorized [id number] Closed 08/31/2021 10/01/2022 1 1 Encounter Details Date Type Department Care Team (Latest Contact Info) Description 09/02/2021 6:35 AM CDT - 09/02/2021 11:59 PM CDT Hospital Encounter [facility] [address] [place] [address] Elza Allan MD Discharge Disposition: Home or [...] 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 Not on [...] st Contact Info) Description 04/25/2024 11:00 AM SIGNS AND DISPLAYS SALESPERSON Appointment [facility] [address] [facility] [place] [address] Ti Bonilla MD [address] [place] [phone] 05/23/2024 3:30 PM SIGNS AND DISPLAYS SALESPERSON Office Visit [facility] [facility] [address] [facility] [place] [address] Jyoti Escobar MD [address] [place] [phone] documented as of this encounter Procedures Procedure [...] - 145 MMOL/L 09/02/2021 7:28 AM CDT [facility] POTASSIUM S/P/B 4.1 3.5 - 5.1 MMOL/L 09/02/2021 7:28 AM CDT [facility] CHLORIDE S/P/B 102 98 - 107 MMOL/L 09/02/2021 7:28 AM T [facility] CO2 31.7 21.0 - 32.0 MMOL/L 09/02/2021 7:28 AM T [facility] GLUCOSE 141(H) 74 - 106 MG/DL 09/02/2021 7:28 AM T [facility] BUN 23(H) 7 - 18 MG/DL 09/02/2021 7:28 AM T [facility] CREATININE S/P/B 1.00 0.70 - 1.30 MG/DL 09/02/2021 7:28 AM T [facility] CALCIUM S/P/B 9.2 8.5 - 10.1 MG/DL 09/02/2021 7:28 AM CDT [facility] ANION GAP 3.3(L) 5.0 - 15.0 MMOL/L 09/02/2021 7:28 AM T [facility] OSMOLALITY (CALC) 290 MOSM/KG 022 7:28 AM T [facility] Comment:REFERENCE RANGE NOT ESTABLISHED GFR ESTIMATE 85(L) >90 ML/MIN/1. 73 M2 09/02/2021 7:28 AM T [facility] GFR NOTES GFR REFERENCE S: 09/02/2021 7:28 AM CDT [facility] Comment: THE ESTIMATED GFR [...] Elza Allan MD LABORATORY Final Resul t [facility] [address] [place] [address], [id number] * ECG 12 lead (09/02/2021 12:00 AM CDT) 09/02/2021 Narrative [facility] - 09/02/2021 7:44 PM CDT ? [facility] ?[address] [place], [place] ??[address] ? Test Date: ?2021-09-02 Pat Name: ? ELZA MCKEON ? Department: ?? 1 ? Room: ? Gender: ? Male ? Corporate Events Director: ?? As : ?1960 ? Requested By: ELZA ALLAN Order Number: [id number] ? Reading : ?? Becki Nuñez ? Measurements Intervals ?[place] ? Rate: ? 76 ? P: ?77 ID: ? [id number] ?QRS: ?65 QRSD: ? 129 ?T: ?26 QT: ? 421 ? QTc: ?475 ? Interpretive Statements SINUS RHYTHM RIGHT BUNDLE BRANCH BLOCK Procedure Note Becki Nuñez MD - 09/02/2021 [facility] [address] [place] [address] Test Date: 2021-09-02 Pat Name: ELZA MCKEON Department: 1 Room: Gender: Male Corporate Events Director: As : 1960 Requested By: ELZA ALLAN Order Number: [id number] Reading MD: Becki Nuñez Measurements Intervals [place] Rate: 76 P: 77 ID: [id number] QRS: 65 QRSD: 129 T: 26 QT: 421 QTc: 475 Interpretive Statements SINUS RHYTHM RIGHT BUNDLE BRANCH BLOCK us Elza Allan MD ECG ORDERABLES Edited Resu lt - Final [facility] * ECG 12 lead (09/02/2021 12:00 AM CDT) 09/02/2021 Narrative [facility] - 09/02/2021 5:43 PM CDT ? [facility] ?[address] [place], [place] ??[address] ? Test Date: ?2021-09-02 Pat Name: ? ELZA MCKEON ? Department: ?? 1 ? Room: ? Gender: ? Male ? Corporate Events Director: ?? : ?1960 ? Requested By: ELZA ALLAN Order Number: [id number] ? Reading : ?? Arnel Murillo ? Measurements Intervals ?[place] ? Rate: ? 90 ? P: ?9 ID: ? [id number] ?QRS: ?43 QRSD: ? 139 ?T: ?-21 QT: ? 384 ? QTc: ?470 ? Interpretive Statements SINUS RHYTHM WITH FIRST DEGREE AV BLOCK I-RBBB Procedure Note Arnel Murillo MD - 09/02/2021 [facility] [address] [place] [address] Test Date: 2021-09-02 Pat Name: ELZA MCKEON Department: 1 Room: Gender: Male Corporate Events Director: : 1960 Requested By: ELZA ALLAN Order Number: [id number] Jose Antonio MD: Arnel Murillo Measurements Intervals [place] Rate: 90 P: 9 ID: [id number] QRS: 43 QRSD: 139 T: -21 QT: 384 QTc: 470 Interpretive Statements SINUS RHYTHM WITH FIRST DEGREE AV BLOCK I-RBBB us Elza Allan MD ECG ORDERABLES Edited Resu lt - Final [facility] documented in this encounter Visit Diagnoses Diagnosis [...] mL/hr documented in this encounter Care Teams Production Team Member Relationship Specialty Start Date End Date Vernon Mercedes MD [address] [facility] [place] [phone] PCP - General FAMILY PRACTICE 10/27/15 12/02/21 Elza Allan MD [address] [place] [address] [facility] CARDIOVASCULAR DISEASE 08/19/16 Raul Santana MD [address] [place] [address] CLINICAL CARDIAC ELECTROPHYSIOLOGY 06/16/17 Danny Blackwell MD [address] [place] [address] ORTHOPAEDIC SURGERY 05/01/19 Gayle Arce, RESEARCH COMPLIANCE SPECIALIST, ARCHEOLOGIST-C [address] [facility] [address] [place] [phone] NURSE PRACTITIONER 03/03/20 documented as of this encounter
--- OUTSIDE RECORDS SUMMARY | 2024-04-23 05:16 | XMS_ITS | Encounter Summary ---
Author Organization [facility] Address [address] [place] [address]. [place] [address] [place] [address] Care Team Providers Care Portable Track Line Marker Name Role Phone Vernon Mercedes MD Primary Care Provider [phone] Elza Floyd MD Unavailable Unavailabl Raul Duran MD Unavailable Unavailabl Danny Lopes MD Unavailable [phone] Gayle Arce APRN, HISTORY FACULTY MEMBER-C Unavailable Encounter Details Date Type Department Care Team (Late st Contact Info) Description 09/03/2021 Orders Only [facility] [address] [place] [address] Elza Floyd MD Social History [...] st Contact Info) Description 04/25/2024 11:00 AM HAIR SPINNER Appointment [facility] [place] [address] Ti Bonilla MD [address] [place] [address] 05/23/2024 3:30 PM HAIR SPINNER Office Visit [facility] [address] [place] [address] Jyoti Escobar MD [address] [place] [address]3631 documented as of this encounter Results * ECG 12 lead (HOSPITAL PERFORMED ONLY) (09/08/2021 10:10 AM CDT) 09/08/2021 10:1 0 AM CDT Narrative [facility] - 09/08/2021 12:27 PM CDT ? [facility] ?[address] [place], [place] ??[address] ? Test Date: ?2021-09-08 Pat Name: ? ELZA MCKEON ? Department: ?? 3 ? Room: ? Gender: ? Male ? Satellite Instruction Facilitator: ?? : ?1960 ? Requested By: ELZA FLOYD Order Number: [id number] ? Reading MD: ?? Leonid Khan ? Measurements Intervals ?[place] ? Rate: ? 79 ? P: ?72 MI: ? 172 ?QRS: ?64 QRSD: ? 120 ?T: ?40 QT: ? 389 ? QTc: ?446 ? Interpretive Statements SINUS RHYTHM RIGHT BUNDLE BRANCH BLOCK Procedure Note Leonid Khan MD - 09/08/2021 [facility] [address] [facility] [place] [address] Test Date: 2021-09-08 Pat Name: [facility] Department: 3 Room: Gender: Male Satellite Instruction Facilitator: : 1960 Requested By: [facility] Order Number: [id number] Jose Antonio MD: Leonid Khan Measurements Intervals [place] Rate: 79 P: 72 MI: 172 QRS: 64 QRSD: 120 T: 40 QT: 389 QTc: 446 Interpretive Statements SINUS RHYTHM RIGHT BUNDLE BRANCH BLOCK us Elza Floyd MD ECG ORDERABLES Final Resul t [facility] documented in this encounter Visit Diagnoses Diagnosis Paroxysmal atrial fibrillation (CMS/HCC HHS/HCC)- Primary Atrial fibrillation Paroxysmal atrial fibrillation (CMS/HCC HHS/HCC) Atrial fibrillation documented in this encounter Care Teams Portable Track Line Marker Relationship Specialty Start Date End Date Vernon Mercedes MD [address] [place] [address] PCP - General FAMILY PRACTICE 10/27/15 12/02/21 Elza Floyd MD [address] [place] [address] [place] Gold Attendant CARDIOVASCULAR DISEASE 08/19/16 Raul Santana MD [address] [place] [address] CLINICAL CARDIAC ELECTROPHYSIOLOGY 06/16/17 Danny Blackwell MD [address] [place] [address] ORTHOPAEDIC SURGERY 05/01/19 Gayle Arce, WATER/WASTEWATER PROJECT ENGINEER, HISTORY FACULTY MEMBER-C [address] [facility] [address] [place] [address] NURSE PRACTITIONER 03/03/20 documented as of this encounter
--- OUTSIDE RECORDS SUMMARY | 2024-04-23 05:16 | XMS_ITS | Encounter Summary ---
Author Organization [facility] Address [address] [place] [address]. 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 No / Unsure 05/25/2021 7:02 AM TILE PICKER documented as of this encounter Functional Status [...] st Contact Info) Description 04/25/2024 11:00 AM TILE PICKER Appointment [facility] [address] [place] [address] [place] [address] Ti Bonilla MD [address] [place] [address] 05/23/2024 3:30 PM TILE PICKER Office Visit [facility] [address] [place] [address] Jyoti Escobar MD [address] [place] [address] documented as of this encounter Visit Diagnoses Not on filedocumented in this encounter Additional Health Concerns Infection Onset Date Last Indicated Resolved Time COVID-19 Rule Out 05/23/2021 05/23/2021 05/25/2021 3:02 PM TILE PICKER COVID-19 Rule Out 05/25/2021 05/25/2021 05/26/2021 3:50 AM TILE PICKER documented as of this encounter Care Teams Photo Technician Relationship Specialty Start Date End Date Vernon Mercedes MD [address] [place] [address] PCP - General FAMILY PRACTICE 10/27/15 12/02/21 Evaristo Allan MD [address] [place] [address] [place] Mud Analysis Operator CARDIOVASCULAR DISEASE 08/19/16 Raul Santana MD [facility] [place] [address] CLINICAL CARDIAC ELECTROPHYSIOLOGY 06/16/17 Danny Blackwell MD [address] [place] [address] ORTHOPAEDIC SURGERY 05/01/19 Gayle Arce, METAL PATTERNMAKER APPRENTICE, DANCING TEACHER-C [address] [facility] [address] [place] [address] NURSE PRACTITIONER 03/03/20 documented as of this encounter
--- OUTSIDE RECORDS SUMMARY | 2024-04-23 05:16 | XMS_ITS | Encounter Summary ---
Author Organization [facility] Address [address] [place] [address]. 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 file Not [...] st Contact Info) Description 04/25/2024 11:00 AM BARREL RIFLER OPERATOR Appointment [facility] [address] [place] [address] Ti Bonilla MD [address] [place] [address] 05/23/2024 3:30 PM BARREL RIFLER OPERATOR Office Visit [facility] [address] [place] [address] Jyoti Escobar MD [address] [place] [address] documented as of this encounter Visit Diagnoses Not on filedocumented in this encounter Care Teams Obstetrics Gynecology Physician Relationship Specialty Start Date End Date Vernon Mercedes MD [address] [place] [address] PCP - General FAMILY PRACTICE 10/27/15 12/02/21 Evaristo Allan MD [address] [place] [address] [place] Quantitative Analyst CARDIOVASCULAR DISEASE 08/19/16 Raul Santana MD [address] [place] [address] CLINICAL CARDIAC ELECTROPHYSIOLOGY 06/16/17 Danny Blackwell MD [address] [place] [address] ORTHOPAEDIC SURGERY 05/01/19 Gayle Arce, BARBARA, HAND TACKER-C [address] [facility] [address] [place] [address] NURSE PRACTITIONER 03/03/20 documented as of this encounter
--- OUTSIDE RECORDS SUMMARY | 2024-04-23 05:16 | XMS_ITS | Encounter Summary ---
Author Organization [facility] Address [address] [place] [address]. [place] [address] [place] [address] Care Team Providers Care Licensed Social Worker Name Role Phone Ton Mercedes MD Primary Care Provider [phone] Elza Allan MD Unavailable Unavailabl Raul Duran MD Unavailable Unavailabl Danny Lopes MD Unavailable [phone] Gayle Arce APRN, INBOUND CUSTOMER SERVICE REPRESENTATIVE-C Unavailable [phone] Reason for Visit * Reason Comments Follow Up Dizziness Encounter Details Date Type Department Care Team ([facility] Contact Info) Description 11/03/2021 11:00 AM CDT Office Visit [facility] [address] [place] [address] Gayle Arce APRN, INBOUND CUSTOMER SERVICE REPRESENTATIVE-C [address] [facility] [address] [place] [address] Follow Up; Dizziness Social History [...] encounter Progress Notes * Gayle Arce APRN, INBOUND CUSTOMER SERVICE REPRESENTATIVEKavitaC - 11/03/2021 11:00 AM CDT FROM: Gayle Arce APRN, ALEXANDRE-C, collaborating physician Elza Allan III, M.D. RE: Elza Mckeon : 1960 Reason for Visit: Follow Up and Dizziness History of Present Illness: Mr. Mckeon is a pleasant 61-year-old male seen in the cardiology clinic today for a followup visit regarding lightheadedness and hypotension. 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 CARDIAC CATHETERIZATION 11/13/2018 ??? FRACTURE SURGERY ??? 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 HERNIA REPAIR ??? JOINT REPLACEMENT ??? KNEE ARTHROPLASTY Bilateral ??? LITHOTRIPSY ??? XA ABLATION 05/19/2016 ??? XA CORONARY INTERVENTION 03/24/2018 BIODIESEL PLANT OPERATIONS ENGINEER PCI-mid RCA Social History Tobacco Use [...] hypotension type 5. Coronary artery disease involving [place] coronary artery of [place] heart, unspecified whether angina present Referring Provider: No ref. provider found PCP: TON MERCEDES MD documented in this encounter Plan of Treatment Upcoming Encounters Date Type Department Care Team (Late st Contact Info) Description 04/25/2024 11:00 AM TOOL CLERK Appointment [facility] [facility] [address] Ti Bonilla MD [address] [place] [address] 05/23/2024 3:30 PM TOOL CLERK Office Visit [facility] [address] [place] [address] Jyoti Escobar MD [address] [place] [phone] documented as of this encounter Procedures Procedure Name Priority Date/Time Associated Diagnosis Comments ELECTROCARDIOGRAM (NON MIDMARK ACQUIRED) Routine 11/03/2021 10:55 AM CDT Coronary artery disease involving [place] coronary artery of [place] heart, unspecified whether angina present Paroxysmal atrial fibrillation (CMS/HCC [facility]/HCC) documented in this encounter Results * ELECTROCARDIOGRAM (11/03/2021 10:55 AM CDT) 11/03/2021 10:5 5 AM CDT Narrative [facility] - 11/04/2021 2:16 PM CDT ? [facility] ?[address] [place], [place] ??[address] ? Test Date: ?2021-11-03 Pat Name: ? ELZA MCKEON ? Department: ?? 105 ? Room: ? Gender: ? Male ? Injection Molding Supervisor: ?? : ?1960 ? Requested By: ELZA ALLAN Order Number: [id number] ?Reading MD: ?? Arnel Murillo ? Measurements Intervals ?[place] ? Rate: ? 71 ? P: ? SC: ? 0 ?QRS: ?60 QRSD: ? 110 ?T: ?47 QT: ? 399 ? QTc: ?436 ? Interpretive Statements ATRIAL FLUTTER/TACHYCARDIA INCOMPLETE RIGHT BUNDLE BRANCH BLOCK ABNORMAL RHYTHM ECG Procedure Note Arnel Murillo MD - 11/04/[address] [facility], [place] [address] [place] [address] Test Date: 2021-11-03 Pat Name: ELZA [facility] Department: 105 Room: Gender: Male Injection Molding Supervisor: : 1960 Requested By: ELZA ALLAN Order Number: [id number] Jose Antonio OSMAN: Arnel Murillo Measurements Intervals [place] Rate: 71 P: SC: 0 QRS: 60 QRSD: 110 T: 47 QT: 399 QTc: 436 Interpretive Statements ATRIAL FLUTTER/TACHYCARDIA INCOMPLETE RIGHT BUNDLE BRANCH BLOCK ABNORMAL RHYTHM ECG us Elza Allan MD PROCEDURES-ORDERABLE NO LENO RGE Final Result [facility] documented in this encounter Visit Diagnoses Diagnosis Atrial flutter, unspecified type (CMS/HCC HHS/HCC)- Primary Paroxysmal atrial fibrillation (CMS/HCC HHS/HCC) Atrial fibrillation Lightheadedness Dizziness and giddiness Hypotension, unspecified hypotension type Coronary artery disease involving [place] coronary artery of [place] heart, unspecified whether angina present documented in this encounter Care Teams Licensed Social Worker Relationship Specialty Start Date End Date Ton Mercedes MD [address] [place] [address] PCP - General FAMILY PRACTICE 10/27/15 12/02/21 Elza Allan MD [address] [place] [address] [place] Order Processing Clerk CARDIOVASCULAR DISEASE 08/19/16 Raul Santana MD [facility] [place] [address] CLINICAL CARDIAC ELECTROPHYSIOLOGY 06/16/17 Danny Blackwell MD [address] [place] [address] ORTHOPAEDIC SURGERY 05/01/19 Gayle Arce APRN, INBOUND CUSTOMER SERVICE REPRESENTATIVE-C [address] [facility] [address] [place] [address] NURSE PRACTITIONER 03/03/20 documented as of this encounter
--- OUTSIDE RECORDS SUMMARY | 2024-04-23 05:16 | XMS_ITS | Encounter Summary ---
Author Organization [facility] Address [address] [place] [address]. [place], [place] [address] [place] [address] Care Team Providers Care Construction Contractor Name Role Phone Vernon Mercedes MD Primary Care Provider [phone] Evaristo Allan MD Unavailable Unavailabl Raul Duran MD Unavailable Unavailabl Danny Lopes MD Unavailable [phone] Gayle Arce APRN, ROAD MONKEY-C Unavailable Encounter Details Date Type Department Care Team (Late st Contact Info) Description 11/04/2021 Prep for Procedure [facility] [address] [place] [address] Joshua Yin MD [address] [place] [address] Social History Tobacco Use Types [...] 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 [...] Contact Info) Description 04/25/2024 11:00 AM MANAGER EDUCATION Appointment [facility] [address] [place] [address] Ti Bonilla MD [address] [place] [address] 05/23/2024 3:30 PM MANAGER EDUCATION Office Visit [facility] [address] [place] [phone] Jyoti Escobar MD [address] [place] [address] documented as of this encounter Visit Diagnoses Not on filedocumented in this encounter Care Teams Construction Contractor Relationship Specialty Start Date End Date Vernon Mercedes MD [address] [facility] [place] [address] PCP - General FAMILY PRACTICE 10/27/15 12/02/21 Evaristo Allan MD [facility] [place] [address] [place] Mechanical Handyman CARDIOVASCULAR DISEASE 08/19/16 Raul Santana MD [facility] [place] [address] CLINICAL CARDIAC ELECTROPHYSIOLOGY 06/16/17 Danny Blackwell MD 5 [place] [address] ORTHOPAEDIC SURGERY 05/01/19 Gayle Arce, PLATE DRYING MACHINE TENDER, ROAD MONKEY-C [address] [facility] [address] [place] [address] NURSE PRACTITIONER 03/03/20 documented as of this encounter
--- OUTSIDE RECORDS SUMMARY | 2024-04-23 05:16 | XMS_ITS | Encounter Summary ---
Author Organization [facility] Address [address] [place] [address]. 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 Not on [...] st Contact Info) Description 04/25/2024 11:00 AM COOLER TENDER Appointment [facility] [address] [place] [address] Ti Bonilla MD [address] [place] [phone] 05/23/2024 3:30 PM COOLER TENDER Office [facility] [address] [place] [address] Jyoti Escobar MD [address] [place] [address] documented as of this encounter Results * PRE-SURGICAL/PRE-PROCEDURE CORONAVIRUS (COVID 19) (08/31/2021 3:46 PM CDT) SPEC DESCRIPTION NASAL 09/01/19 22 3:44 PM CDT [facility] CORONAVIRUS SARS COV 2 PCR (RESP) NEGATIVE NEGATIVE 09/01/2021 8:03 PM CDT [facility] Comment: THE SARS-CoV-2 TEST HAS BEEN AUTHORIZED BY THE FDA UNDER AN EUA FOR USE BY AUTHORIZED LABORATORIES. PERFORMED BY NUCLEIC ACID AMPLIFICATION PCR FIRST TEST UNKNOWN 08/31/2021 3:44 PM CDT [facility] EMPLOYED IN HEALTHCARE YES 08/31/2021 3:44 PM CDT [facility] SYMPTOMATIC DEFINED BY CDC UNKNOWN 08/31/2021 3:44 PM CDT [facility] HOSPITALIZATION STATUS NO 08/31/2021 3:44 PM CDT [facility] PATIENT IN ICU NO 08/31/2021 3:44 PM CDT [facility] RESIDENT OF [facility] YES 08/31/2021 3:44 PM CDT [facility] NASAL STRUCTURE / Unknown 08/31/2021 3:46 PM CDT us Evaristo Allan MD MICROBIOLOGY - GENERAL SUKHWINDER COOPER Final Result [facility] [address] [place] [address], [facility] [address] [place] [address], documented in this encounter Visit Diagnoses Diagnosis Pre-operative laboratory examination- Primary Pre-procedural laboratory examination documented in this encounter Care Teams Tin Pourer Relationship Specialty Start Date End Date Vernon [place] [address] PCP - General FAMILY PRACTICE 10/27/15 12/02/21 [place]var[place] [address] [place] Turf Sales Person CARDIOVASCULAR DISEASE 08/19/16 Raul Santana [place] [address] CLINICAL CARDIAC ELECTROPHYSIOLOGY 06/16/17 Danny Blackwell MD [address] [place], [place] [phone] ORTHOPAEDIC SURGERY 05/01/19 Gayle Arce, MARKETING COPYWRITER, BRAZER ELECTRONIC-C [address] [facility] [address] [place] [address] NURSE PRACTITIONER 03/03/20 documented as of this encounter
--- OUTSIDE RECORDS SUMMARY | 2024-04-23 05:16 | XMS_ITS | Encounter Summary ---
Author Organization [facility] Address [address] [place] [address]. [place], [place] [address] [place] [address] Care Team Providers Care Smocking Machine Operator Name Role Phone Vernon Mercedes MD Primary Care Provider [phone] Evaristo Allan MD Unavailable Unavailabl Raul Duran MD Unavailable Unavailabl Danny Lopes MD Unavailable [phone] Gayle Arce APRN, CHEMICAL WEIGHER-C Unavailable [phone] Encounter Details Date Type Department Care Team (Late st Contact Info) Description 05/25/2021 Orders Only [facility] [facility] [place] [address] [place] [address] [place] [address] Social History Tobacco Use Types [...] Coronavirus/COVID-19? No / Unsure 05/26/2021 9:27 AM AIRCRAFT STRUCTURAL DESIGN ENGINEER documented as of this encounter Functional Status [...] Info) Description 04/25/2024 11:00 AM AIRCRAFT STRUCTURAL DESIGN ENGINEER Appointment [facility] [address] [place] [address] Ti Bonilla MD [address] [place] [phone] 05/23/2024 3:30 PM AIRCRAFT STRUCTURAL DESIGN ENGINEER Office Visit [facility] [address] [place] [phone] Jyoti Escobar MD [address] [place] [phone] documented as of this encounter Results * CORONAVIRUS (COVID 19) PCR (05/25/2021 4:06 PM AIRCRAFT STRUCTURAL DESIGN ENGINEER) SPEC DESCRIPTION NASAL 05/25/19 4:06 PM AIRCRAFT STRUCTURAL DESIGN ENGINEER [facility] CORONAVIRUS SARS COV 2 PCR (RESP) NEGATIVE NEGATIVE 05/26/2021 3:50 AM AIRCRAFT STRUCTURAL DESIGN ENGINEER [facility] Comment: THE SARS-CoV-2 TEST HAS BEEN AUTHORIZED BY THE FDA UNDER AN EUA FOR USE BY AUTHORIZED LABORATORIES. PERFORMED BY NUCLEIC ACID AMPLIFICATION PCR FIRST TEST NO 05/25/2021 4:06 PM AIRCRAFT STRUCTURAL DESIGN ENGINEER [facility] EMPLOYED IN HEALTHCARE YES 05/25/2021 4:06 PM AIRCRAFT STRUCTURAL DESIGN ENGINEER [facility] SYMPTOMATIC DEFINED BY CDC NO 05/25/2021 4:06 PM AIRCRAFT STRUCTURAL DESIGN ENGINEER [facility] HOSPITALIZATION STATUS NO 05/25/2021 4:06 PM AIRCRAFT STRUCTURAL DESIGN ENGINEER [facility] PATIENT IN ICU NO 05/25/2021 4:06 PM AIRCRAFT STRUCTURAL DESIGN ENGINEER [facility] RESIDENT OF [facility] YES 05/25/2021 4:06 PM AIRCRAFT STRUCTURAL DESIGN ENGINEER [facility] NASAL STRUCTURE / Unknown 05/25/2021 4:06 PM AIRCRAFT STRUCTURAL DESIGN ENGINEER us Ana Moreno III, MD MICROBIOLOGY - GENERAL O RDERABLES Final Result [facility] [address] [place] [address], [facility] [address] [place] [address], documented in this encounter Visit Diagnoses Diagnosis Pre-operative laboratory examination- Primary Pre-procedural laboratory examination documented in this encounter Additional Health Concerns Infection Onset Date Last Indicated Resolved Time COVID-19 Rule Out 05/23/2021 05/23/2021 05/25/2021 3:02 PM AIRCRAFT STRUCTURAL DESIGN ENGINEER COVID-19 Rule Out 05/25/2021 05/25/2021 05/26/2021 3:50 AM AIRCRAFT STRUCTURAL DESIGN ENGINEER documented as of this encounter Care Teams Smocking Machine Operator Relationship Specialty Start Date End Date Vernon Mercedes MD [address] [place] [phone] PCP - General FAMILY PRACTICE 10/27/15 12/02/21 Evaritso Allan MD [address] [facility] [address] [place] Title I Instructional Assistant CARDIOVASCULAR DISEASE 08/19/16 Raul Santana MD [address] [place] [address] CLINICAL CARDIAC ELECTROPHYSIOLOGY 06/16/17 Danny Blackwell MD [address] [place] [address] ORTHOPAEDIC SURGERY 05/01/19 Gayle Arce, HEALTH TECHNICIAN HEARING, CHEMICAL WEIGHER-C [address] [facility] [address] [place] [address] NURSE PRACTITIONER 03/03/20 documented as of this encounter
--- OUTSIDE RECORDS SUMMARY | 2024-04-23 05:16 | XMS_ITS | Encounter Summary ---
Author Organization [facility] Address [address] [place] [address]. 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 No / Unsure 06/02/2021 10:06 AM GENERAL MATCHER documented as of this encounter Functional Status [...] Contact Info) Description 04/25/2024 11:00 AM GENERAL MATCHER Appointment [facility] [address] [place] [address] Ti Bonilla MD [address] [place] [phone] 05/23/2024 3:30 PM GENERAL MATCHER Office Visit [facility] [address] [place] [address] Jyoti Escobar MD [address] [place] [address] documented as of this encounter Visit Diagnoses Not on filedocumented in this encounter Care Teams Tongue Trimmer Relationship Specialty Start Date End Date Vernon Mercedes MD [address] [place] [address] PCP - General FAMILY PRACTICE 10/27/15 12/02/21 Evaristo Allan MD [address] [place] [address] [place] Black Leather Trimmer CARDIOVASCULAR DISEASE 08/19/16 Raul Santana MD [address] [place] [address] CLINICAL CARDIAC ELECTROPHYSIOLOGY 06/16/17 Danny Blackwell MD [address] [place] [address] ORTHOPAEDIC SURGERY 05/01/19 Gayle Arce, DIRECTOR FEDERAL, LEAD WEB DEVELOPER-C [address] [facility] [address] [place] [address] NURSE PRACTITIONER 03/03/20 documented as of this encounter
--- OUTSIDE RECORDS SUMMARY | 2024-04-23 05:16 | XMS_ITS | Encounter Summary ---
Author Organization [facility] [place] Address [address] [place] [address]. [place] [address] [place] [address] Care Team Providers Care Food Cooking Machine Operator Name Role Phone Vernon Mercedes MD Primary Care Provider [phone] Evaristo Allan MD Unavailable Unavailabl Raul Duran MD Unavailable Unavailabl Danny Lopes MD Unavailable [phone] Gayle Arce APRN, FIG BAR MACHINE OPERATOR-C Unavailable Reason for Visit * Reason Onset Date Comments Advice 09/07/2021 Still feels like his going in and out of a-fib Problem 09/09/2021 Edema Encounter Details Date Type Department Care Team (Late st Contact Info) Description 09/07/2021 Telephone [facility] [address] [place] [address] Evaristo Allan MD Advice (Still [...] 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 Call Mrs. Zelaya at [phone]. * Nalini Orlando RN - 09/08/2021 10:52 AM CDT Received EKG done at [facility]- noted SR HR 79 Phoned patient, message [...] Contact Info) Description 04/25/2024 11:00 AM PROJECT SYSTEMS ENGINEER Appointment [facility] [address] [facility] [place] [address] Ti Bonilla MD [address] [place] [phone] 05/23/2024 3:30 PM PROJECT SYSTEMS ENGINEER Office Visit [facility] [address] [place] [address] Jyoti Escobar MD [address] [place], [place] [address] documented as of this encounter Visit Diagnoses Not on filedocumented in this encounter Care Teams Food Cooking Machine Operator Relationship Specialty Start Date End Date Vernon Mercedes MD [address] [place] [address] PCP - General FAMILY PRACTICE 10/27/15 12/02/21 Evaristo Allan MD [address] [place], [place] [address] [address] [place] Butter Production Supervisor CARDIOVASCULAR DISEASE 08/19/16 Raul Santana MD Critical access hospital [place] [address] CLINICAL CARDIAC ELECTROPHYSIOLOGY 06/16/17 Danny Blackwell MD [address] [place] [address] ORTHOPAEDIC SURGERY 05/01/19 Gayle Arce APRN, FIG BAR MACHINE OPERATOR-C [address] [facility] [address] [place] [phone] NURSE PRACTITIONER 03/03/20 documented as of this encounter
--- OUTSIDE RECORDS SUMMARY | 2024-04-23 05:16 | XMS_ITS | Encounter Summary ---
Author Organization [facility] Address [address] [place] [address]. [place], [place] [address] [place] [address] Care Team Providers Care Acoustics Teacher Name Role Phone Vernon Mercedes MD Primary Care Provider [phone] Evaristo Allan MD Unavailable UnavailRaul Suresh MD Unavailable Unavailabl Danny Lopes MD Unavailable [phone] Gayle Arce APRN, DELIVERY MANAGER-C Unavailable Encounter Details Date Type Department Care Team (Late st Contact Info) Description 06/02/2021 Orders Only [facility] [address] [place] [address] Vernon Mercedes MD [address] [place] [address] Social History Tobacco Use Types [...] 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 No / Unsure 06/02/2021 10:06 AM INSULATION BLOWER documented as of this encounter Functional Status [...] st Contact Info) Description 04/25/2024 11:00 AM INSULATION BLOWER Appointment [facility] [address] [place] [address] Ti Bonilla MD [address] [place] [phone] 05/23/2024 3:30 PM INSULATION BLOWER Office Visit [facility] [facility] [address] [place] [phone] Jyoti Escobar MD [address] [place] [phone] documented as of this encounter Results * (ABNORMAL) COMPREHENSIVE METABOLIC PANEL (06/02/2021 10:19 AM INSULATION BLOWER) [facility] Signature SODIUM S/P/B 141 136 - 145 MMOL/L 06/02/2021 10:42 AM [facility] POTASSIUM S/P/B 4.3 3.5 - 5.1 MMOL/L 06/02/2021 10:42 AM [facility] CHLORIDE S/P/B 103 98 - 107 MMOL/L 06/02/2021 10:42 AM [facility] CO2 31.5 21.0 - 32.0 MMOL/L 06/02/2021 10:42 AM [facility] GLUCOSE 152(H) 70 - 99 MG/DL 06/02/2021 10:42 AM [facility] Comment: FASTING GLUCOSE 100 TO 125 MG/DL IS CONSISTENT WITH IMPAIRED FASTING GLUCOSE. FASTING GLUCOSE >125 MG/DL IS CONSISTENT WITH DIABETES. RANDOM GLUCOSE >200 MG/DL WITH HYPERGLYCEMIC SYMPTOMS IS CONSISTENT WITH DIABETES. PER ADA GUIDELINES BUN 18 6 - 24 MG/DL 06/02/2021 10:42 AM [facility] CREATININE S/P/B 1.21 0.70 - 1.30 MG/DL 06/02/2021 10:42 AM [facility] CALCIUM S/P/B 8.4 8.4 - 10.5 MG/DL 06/02/2021 10:42 AM [facility] BILIRUBIN TOTAL S/P/B 0.4 0.2 - 1.0 MG/DL 06/02/2021 10:42 AM [facility] Comment: THIS ASSAY IS NOT RECOMMENDED FOR PATIENTS UNDERGOING TREATMENT WITH ELTROMBOPAG DUE TO THE POTENTIAL FOR FALSELY ELEVATED RESULTS. ALKALINE PHOSPHATASE S/P/B 77 45 - 115 U/L 06/02/2021 10:42 AM [facility] AST 21 15 - 37 U/L 06/02/2021 10:42 AM [facility] ALT 37 16 - 63 U/L 06/02/2021 10:42 AM [facility] TOTAL PROTEIN S/P/B 7.2 6.4 - 8.2 G/DL 06/02/2021 10:42 AM [facility] ALBUMIN S/P/B 3.1(L) 3.4 - 5.0 G/DL 06/02/2021 10:42 AM INSUL[facility] BLOWER [facility] ANION GAP 6.5 5.0 - 15.0 MMOL/L 06/02/2021 10:42 AM INSULATION BLOWER [facility] OSMOLALITY (CALC) 297 MOSM/KG 022 10:42 AM INSULATION BLOWER [facility] Comment:REFERENCE RANGE NOT ESTABLISHED EGFR NON-AFR. AMER. 64(L) >89 ML/MIN/1. 73 M2 06/02/2021 10:42 AM INSULATION BLOWER [facility] EGFR AFR. AMER. 74(L) >89 ML/MIN/1. 73 M2 06/02/2021 10:42 AM INSULATION BLOWER [facility] GFR NOTES GFR REFERENCE S: 06/02/2021 10:42 AM [facility] Comment: THE ESTIMATED GFR IS CALCULATED [...] <15 ml/min/1.73 m2 06/02/2021 10:1 9 AM INSULATION BLOWER Vernon Mercedes MD LABORATORY Final Result [facility] [address] [place] [address], documented in this encounter Visit Diagnoses Diagnosis Edema- Primary documented in this encounter Care Teams Acoustics Teacher Relationship Specialty Start Date End Date Vernon Mercedes MD [address] [facility] [place] [phone] PCP - General FAMILY PRACTICE 10/27/15 12/02/21 Evaristo Allan MD [address] [place] [place] [address] [place] Shoemaker Custom CARDIOVASCULAR DISEASE 08/19/16 Raul Santana MD [address] [address] CLINICAL CARDIAC ELECTROPHYSIOLOGY 06/16/17 Danny Blackwell MD [address] [place] [address] ORTHOPAEDIC SURGERY 05/01/19 Gayle Arce, POWDER WORKER, DELIVERY MANAGER-C [address] [facility] [address] [place] [address] NURSE PRACTITIONER 03/03/20 documented as of this encounter
--- OUTSIDE RECORDS SUMMARY | 2024-04-23 05:16 | XMS_ITS | Encounter Summary ---
Author Organization [facility] Address [address] [place] [address]. [place] [address] [place] [address] Care Team Providers Care Medical File Clerk Name Role Phone Vernon Mercedes MD Primary Care Provider [phone] Evaristo Allan MD Unavailable Unavailabl Raul Duran MD Unavailable Unavailabl Danny Lopes MD Unavailable [phone] Gayle Arce APRN, FISHING TOOL TECHNICIAN OIL WELL-C Unavailable [phone] Reason for Visit * Reason Onset Date Comments Problem 11/02/2021 Encounter Details Date Type Department Care Team (Late st Contact Info) Description 11/02/2021 Telephone [facility] [address] [place] [address] Evaristo Allan MD Problem Social [...] 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 [address] [facility] [place] [address] Ti Bonilla MD [address] [place] [phone] 05/23/2024 3:30 PM NETWORK SECURITY ARCHITECT [facility] [address] [place] [address] Jyoti Escobar MD [address] [place], [place] [address] documented as of this encounter Visit Diagnoses Not on filedocumented in this encounter Care Teams Medical File Clerk Relationship Specialty Start Date End Date Vernon Mercedes MD [address] [place] [address] PCP - General FAMILY PRACTICE 10/27/15 12/02/21 Evaristo Allan MD [address] [place] [address] [place] Sharepoint Net Developer CARDIOVASCULAR DISEASE 08/19/16 Raul Santana MD [address] [place], [place] [address] [address] CLINICAL CARDIAC ELECTROPHYSIOLOGY 06/16/17 Danny Blackwell MD [address] [place] [address] ORTHOPAEDIC SURGERY 05/01/19 Gayle Arce, CAPACITOR REPAIRER, FISHING TOOL TECHNICIAN OIL WELL-C [address] [facility] [address] [place] [phone] NURSE PRACTITIONER 03/03/20 documented as of this encounter
--- OUTSIDE RECORDS SUMMARY | 2024-04-23 05:16 | XMS_ITS | Encounter Summary ---
Author Organization [facility] Address [address] [place] [address]. [place] [address] [place] [address] Care Team Providers Care Flat Bed Knitter Name Role Phone Vernon Mercedes MD Primary Care Provider [phone] Evaristo Allan MD Unavailable Unavailabl Raul Duran MD Unavailable Unavailabl Danny Lopes MD Unavailable [phone] Gayle Arce APRN LABORATORY ASSOCIATE-C Unavailable Reason for Referral * Imaging (Routine) - Closed Specialty Diagnoses / Procedures Referred By Contac t Referred To Contact RADIOLOGY Diagnoses Atrial flutter ([facility]/HCC [facility]/HCC) Procedures XA AFLUTTER ABLATION Joshua Yin MD [address] [place] [address] Phone: tel: fax: Referral ID Status Reason Start Date Expiration Date Visits Re quested Visits Authorized [id number] Closed 11/04/2021 12/05/2022 1 1 Reason for Visit * Reason Onset Date Comments Schedule Procedure 11/03/2021 Encounter Details Date Type Department Care Team (Late st Contact Info) Description 11/03/2021 Telephone [facility] ld [address] [place] [address] Joshua Yin MD [address] [place] [address] Schedule Procedure Social History Tobacco Use Types [...] 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 documented in this encounter Plan of Treatment Upcoming Encounters Date Type Department Care Team (Late st Contact Info) Description 04/25/2024 11:00 AM MAGNETO SPECIALIST Appointment [facility] [address] [place] [address] [place] [address] Ti Bonilla MD [address] [place] [phone] 05/23/2024 3:30 PM MAGNETO SPECIALIST Office Visit [facility] [address] [place] [address] [place] [phone] Jyoti Escobar MD [address] [place] [phone] Pending Results Name Type Priority Associated Diagnoses Date /Time XA AFLUTTER ABLATION Cardiac Cath Routine Atrial flutter ([facility]) 11/17/2021 10:31 AM CDT Scheduled Orders Name Type Priority Associated Diagnoses Orde r Schedule XA AFLUTTER ABLATION Cardiac Cath Routine Atrial flutter ([facility]) Expected: 11/17/2021, Expires: 11/04/2022 documented as of this encounter Results * (ABNORMAL) CBC W/DIFF AUTOMATED (11/14/2021 8:48 AM CDT) [facility] WBC 6.5 4.0 - 10.8 x10'3/uL 11/14/2021 9:02 AM CDT [facility] RBC 4.22(L) 4.50 - 6.10 x10'6/uL 11/14/2021 9:02 AM CDT [facility] HGB 11.3(L) 13.0 - 18.0 G/DL 11/14/2021 9:02 AM CDT [facility] HCT 37.1 37.0 - 52.0 % 11/14/2021 9:02 AM CDT [facility] MCV 87.9 78.0 - 100.0 FL 11/14/2021 9:02 AM CDT [facility] MCH 26.8(L) 27.0 - 31.0 PG 11/14/2021 9:02 AM CDT [facility] MCHC 30.5(L) 33.0 - 36.0 G/DL 11/14/2021 9:02 AM CDT [facility] RDW 15.9(H) 11.5 - 14.5 % 11/14/2021 9:02 AM CDT [facility] PLT 262 150 - 350 x10'3/uL 11/14/2021 9:02 AM CDT [facility] MPV 11.1(H) 7.4 - 10.4 FL 11/14/2021 9:02 AM CDT [facility] DIFFERENTIAL COMMENT NORMAL REFERENCE RANGE NOT ESTABLISHED FOR THE PROPORTIONAL LEUKOCYTE DIFFERENTIAL. 11/14/2021 9:02 AM CDT [facility] SEG NEUTROPHILS 57.3 % 9:02 AM CDT [facility] LYMPHOCYTES 26.9 % 11/14/2021 9:02 AM CDT [facility] MONOCYTES 11.3 % 11/14/2021 9:02 AM CDT [facility] EOSINOPHILS 2.8 % 11/14/2021 9:02 AM CDT [facility] BASOPHILS 1.4 % 11/14/2021 9:02 AM CDT [facility] IMMATURE GRANS % 0.3 % 11/15/19 9:02 AM CDT [facility] NRBC 0.0 % 11/14/2021 9:02 AM CDT [facility] ABS. NEUTROPHILS 3.75 1.60 - 8.30 x10'3/uL 11/14/2021 9:02 AM CDT [facility] ABS. LYMPHOCYTES 1.76 0.80 - 4.70 x10'3/uL 11/14/2021 9:02 AM CDT [facility] ABS. MONOCYTES 0.74 0.00 - 1.50 x10'3/uL 11/14/2021 9:02 AM CDT [facility] ABS. EOSINOPHILS 0.18 0.00 - 0.40 x10'3/uL 11/14/2021 9:02 AM CDT [facility] ABS. BASOPHILS 0.09 0.00 - 0.20 x10'3/uL 11/14/2021 9:02 AM CDT [facility] ABS. IMMATURE GRANULOCYTES 0.02 0.00 - 0.03 x10'3/uL 11/14/2021 9:02 AM CDT [facility] ABS. NUCLEATED RBC'S 0.00 0.00 x10'3/uL 11/14/2021 9:02 AM CDT [facility] 11/14/2021 8:48 AM CDT Joshua Yin MD LABORATORY Final Result [facility] [address] [place] [address], * (ABNORMAL) BASIC METABOLIC PANEL (11/14/2021 8:48 AM CDT) SODIUM S/P/B 140 136 - 145 MMOL/L 11/14/2021 9:17 AM CDT [facility] POTASSIUM S/P/B 4.2 3.5 - 5.1 MMOL/L 11/14/2021 9:17 AM CDT [facility] CHLORIDE S/P/B 104 98 - 107 MMOL/L 11/14/2021 9:17 AM CDT [facility] CO2 30.2 21.0 - 32.0 MMOL/L 11/14/2021 9:17 AM CDT [facility] GLUCOSE 295(H) 70 - 99 MG/DL 11/14/2021 9:17 AM CDT [facility] Comment: FASTING GLUCOSE 100 TO 125 MG/DL IS CONSISTENT WITH IMPAIRED FASTING GLUCOSE. FASTING GLUCOSE >125 MG/DL IS CONSISTENT WITH DIABETES. RANDOM GLUCOSE >200 MG/DL WITH HYPERGLYCEMIC SYMPTOMS IS CONSISTENT WITH DIABETES. PER ADA GUIDELINES BUN 20 6 - 24 MG/DL 11/14/2021 9:17 AM CDT [facility] CREATININE S/P/B 1.11 0.70 - 1.30 MG/DL 11/14/2021 9:17 AM CDT [facility] CALCIUM S/P/B 9.2 8.4 - 10.5 MG/DL 11/14/2021 9:17 AM CDT [facility] ANION GAP 5.8 5.0 - 15.0 MMOL/L 11/14/2021 9:17 AM CDT [facility] OSMOLALITY (CALC) 304 MOSM/KG 022 9:17 AM T [facility] Comment:REFERENCE RANGE NOT ESTABLISHED GFR ESTIMATE 75(L) >89 ML/MIN/1. 73 M2 11/14/2021 9:17 AM CDT [facility] GFR NOTES GFR REFERENCE S: 11/14/2021 9:17 AM T [facility] Comment: THE ESTIMATED GFR IS [...] CDT Joshua Yin MD LABORATORY Final Result [facility] [address] [place] [address], documented in this encounter Visit Diagnoses Diagnosis Atrial flutter ([facility])- Primary Atrial flutter Anticoagulated Encounter for long-term (current) use of anticoagulants Pre-op testing Preoperative examination, unspecified documented in this encounter Care Teams Flat Bed Knitter Relationship Specialty Start Date End Date Vernon Mercedes MD [address] [place] [address] PCP - General FAMILY PRACTICE 10/27/15 12/02/21 Evaristo Allan MD [address] [place] [address] [place] [employer]istics Support CARDIOVASCULAR DISEASE 08/19/16 Raul Santana MD [facility] [place] [address] CLINICAL CARDIAC ELECTROPHYSIOLOGY 06/16/17 Danny Blackwell MD [address] [place] [address] ORTHOPAEDIC SURGERY 05/01/19 Gayle Arce APRN, LABORATORY ASSOCIATE-C [address] [facility] [address] [place] [address] NURSE PRACTITIONER 03/03/20 documented as of this encounter
--- OUTSIDE RECORDS SUMMARY | 2024-04-23 05:16 | XMS_ITS | Encounter Summary ---
Author Organization [facility] Address [address] [place] [address]. [place], [place] [address] [place] [address] Care Team Providers Care Doctor Of Dental Medicine Name Role Phone Vernon Mercedes MD Primary Care Provider [phone] Evaristo Allan MD Unavailable UnavailRaul Suresh MD Unavailable Unavailabl Danny Lopes MD Unavailable [phone] Gayle Arce APRN SECTION GANG-C Unavailable Reason for Referral * Surgical (Routine) - Closed Specialty Diagnoses / Procedures Referred By Charito ledbetter Referred To Contact Diagnoses Microhematuria Procedures Case request operating room: CYSTOSCOPY FLEXIBLE Ana Moreno III, MD Phone: tel: fax: Referral ID Status Reason Start Date Expiration Date Visits Re quested Visits Authorized [id number] Closed 05/19/2021 06/16/2022 1 1 RAM MANAGER ENVIRONMENTAL PLANNING Encounter Details Date Type Department Care Team (Late st Contact Info) Description 05/19/[address] [place] [address] [place] [address] [place] [address] Social History Tobacco Use Types Packs/Day Years [...] COVID-19? No / Unsure 04/30/2021 2:41 PM PROGRAM MANAGER ENVIRONMENTAL PLANNING documented as of this encounter Functional Status [...] CST Cystoscopy Flexible DOS: 05-26-2021 COVID: 05-23-2021 RAM MANAGER ENVIRONMENTAL PLANNING documented in this encounter Plan of Treatment Upcoming Encounters Date Type Department Care Team (Shelbi Contact Info) Description 04/25/2024 11:00 AM PROGRAM MANAGER ENVIRONMENTAL PLANNING Appointment [facility] [address] [place] [address] Ti Bonilla MD [address] [place] [phone] 05/23/2024 3:30 PM PROGRAM MANAGER ENVIRONMENTAL PLANNING Office Visit [facility] [address] [place] [address] Jyoti Escobar MD [address] [place] [address] Scheduled Orders Name Type Priority Associated Diagnoses Orde r Schedule Case request operating room: CYSTOSCOPY FLEXIBLE Case Request Routine Microhematuria Once for 1 Occurrences starting 05/26/2021 until 05/26/2021 documented as of this encounter Visit Diagnoses Diagnosis Microhematuria- Primary Microscopic hematuria Pre-operative laboratory examination Pre-procedural laboratory examination documented in this encounter Care Teams Doctor Of Dental Medicine Relationship Specialty Start Date End Date Vernon Mercedes MD [address] [place] [address] PCP - General FAMILY PRACTICE 10/27/15 12/02/21 Evaristo Allan MD [facility] [place] [address] [place] Title Specialist CARDIOVASCULAR DISEASE 08/19/16 Raul Santana MD [address] [place] [address] CLINICAL CARDIAC ELECTROPHYSIOLOGY 06/16/17 Danny Blackwell MD [address] [place] [address] ORTHOPAEDIC SURGERY 05/01/19 Gayle Arce, CARTON REPAIRER, SECTION GANG-C [address] [facility] [address] [place] [address] NURSE PRACTITIONER 03/03/20 documented as of this encounter
--- OUTSIDE RECORDS SUMMARY | 2024-04-23 05:16 | XMS_ITS | Encounter Summary ---
Author Organization [facility] Address [address] [place] [address]. [place], [place] [address] [place] [address] Care Team Providers Care Rehabilitation Supervisor Name Role Phone Vernon Mercedes MD Primary Care Provider [phone] Evaristo Allan MD Unavailable UnavailRaul Suresh MD Unavailable Unavailabl Danny Lopes MD Unavailable [phone] Gayle Arce APRN, ACCOUNT ADJUSTER-C Unavailable Encounter Details Date Type Department Care Team (Latest Contact Info) Description 08/31/2021 3:33 PM CDT - 08/31/2021 11:59 PM CDT Hospital Encounter [facility] [address] [facility] [place] [place] [address] Evaristo Allan MD Discharge Disposition: Home or [...] 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 [address] [place] [address] Ti Bonilla MD [address] [place] [address] 05/23/2024 3:30 PM FOOD TASTER Office Visit [facility] [address] [place] [address] Jyoti Escobar MD [address] [place] [address] documented as of this encounter Procedures Procedure Name Priority Date/Time Associated Diagnosis Comments CORONAVIRUS (COVID 19) Routine 08/31/2021 3:46 PM CDT Pre-operative laboratory examination documented in this encounter Results * PRE-SURGICAL/PRE-PROCEDURE CORONAVIRUS (COVID 19) (08/31/2021 3:46 PM CDT) SPEC DESCRIPTION NASAL 09/01/19 3:44 PM CDT [facility] CORONAVIRUS SARS COV 2 PCR (RESP) NEGATIVE NEGATIVE 09/01/2021 8:03 PM CDT [facility] Comment: THE SARS-CoV-2 TEST HAS BEEN AUTHORIZED BY THE FDA UNDER AN EUA FOR USE BY AUTHORIZED LABORATORIES. PERFORMED BY NUCLEIC ACID AMPLIFICATION PCR FIRST TEST UNKNOWN 08/31/2021 3:44 PM CDT [facility] EMPLOYED IN HEALTHCARE YES 08/31/2021 3:44 PM CDT [facility] SYMPTOMATIC DEFINED BY CDC UNKNOWN 08/31/2021 3:44 PM CDT [facility] HOSPITALIZATION STATUS NO 08/31/2021 3:44 PM CDT [facility] PATIENT IN ICU NO 08/31/2021 3:44 PM CDT [facility] RESIDENT OF [facility] YES 08/31/2021 3:44 PM CDT [facility] NASAL STRUCTURE / Unknown 08/31/2021 3:46 PM CDT us Evaristo Allan MD MICROBIOLOGY - GENERAL SUKHWINDER COOPER Final Result [facility] [address] [place] [address], [place] [phone] [facility] [address] [place] [address], [place] [phone] documented in this encounter Visit Diagnoses Diagnosis Pre-operative laboratory examination Pre-procedural laboratory examination documented in this encounter Additional Health Concerns Infection Onset Date Last Indicated Resolved Time COVID-19 Rule Out 08/31/2021 08/31/2021 09/01/2021 8:03 PM CDT documented as of this encounter Care Teams Rehabilitation Supervisor Relationship Specialty Start Date End Date Vernon Mercedes MD [address] [place] [address] PCP - General FAMILY PRACTICE 10/27/15 12/02/21 Evaristo Allan MD [address] [place] [address] [place]ana Channeler Runner CARDIOVASCULAR DISEASE 08/19/16 Raul Santana MD [facility] [place] [address] CLINICAL CARDIAC ELECTROPHYSIOLOGY 06/16/17 Danny Blackwell MD [address] [place] [address] ORTHOPAEDIC SURGERY 05/01/19 Gayle Arce, LANDSCAPE LABORER, ACCOUNT ADJUSTER-C [address] [facility] [address] [place] [address] NURSE PRACTITIONER 03/03/20 documented as of this encounter
--- OUTSIDE RECORDS SUMMARY | 2024-04-23 05:16 | XMS_ITS | Encounter Summary ---
Author Organization [facility] Address [address] [place] [address]. [place], [place] [address] [place] [address] Care Team Providers Care Electrical Control Assembler Name Role Phone Vernon Mercedes MD Primary Care Provider [phone] Elza Allan MD Unavailable UnavailRaul Suresh MD Unavailable Unavailabl Danny Lopes MD Unavailable [phone] Gayle Arce APRN, CARPET JACK-C Unavailable [phone] Encounter Details Date Type Department Care Team (Latest Contact Info) Description 08/27/2021 12:41 PM CDT - 08/27/2021 11:59 PM CDT Hospital Encounter [facility] [address] [facility] [place] [address] Elza Allan MD Discharge Disposition: Home or [...] 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 [address] [facility] [place] [address] Ti Bonilla MD [address] [place] [address] 05/23/2024 3:30 PM ELECTRICIAN BUS Office Visit [facility] [address] [place] [address] Jyoti Escobar MD [address] [place] [address] documented as of this encounter Procedures Procedure Name Priority Date/Time Associated Diagnosis Comments ECG 12-LEAD Routine 08/27/2021 12:53 PM CDT Atrial fibrillation, unspecified type (CMS/HCC HHS/HCC) documented in this encounter Results * ECG 12 lead (08/27/2021 12:53 PM CDT) 08/27/2021 12:5 3 PM CDT Narrative [facility] - 08/28/2021 12:22 AM CDT ? [facility] ?[address] [place], [place] ??[address] ? Test Date: ?2021-08-27 Pat Name: ? ELZA MCKEON ? Department: ?? 3 ? Room: ? Gender: ? Male ? Biostatistics Teacher: ?? : ?1960 ? Requested By: ELZA ALLAN Order Number: [id number] ? Reading : ?? Kenzie Soto ? Measurements Intervals ?[place] ? Rate: ? 97 ? P: ?24 WV: ? 111 ?QRS: ?55 QRSD: ? 126 ?T: ?35 QT: ? 425 ? QTc: ?541 ? Interpretive Statements SINUS RHYTHM WITH SHORT WV INTERVAL RIGHT BUNDLE BRANCH BLOCK Procedure Note Kenzie Soto MD - 08/28/[address] [place] [address] Test Date: 2021-08-27 Pat Name: ELZA MCKEON Department: 3 Room: Gender: Male Biostatistics Teacher: : 1960 Requested By: ELZA ALLAN Order Number: [id number] Jose Antonio MD: Kenzie Soto Measurements Intervals [place] Rate: 97 P: 24 WV: 111 QRS: 55 QRSD: 126 T: 35 QT: 425 QTc: 541 Interpretive Statements SINUS RHYTHM WITH SHORT WV INTERVAL RIGHT BUNDLE BRANCH BLOCK Elza Allan MD ECG ORDERABLES Final Resul t [facility] documented in this encounter Visit Diagnoses Diagnosis Atrial fibrillation, unspecified type (CMS/HCC HHS/HCC)- Primary Abdominal 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 [address] [place] [address] NURSE PRACTITIONER 03/03/20 documented as of this encounter
--- OUTSIDE RECORDS SUMMARY | 2024-04-23 05:16 | XMS_ITS | Encounter Summary ---
Author Organization [facility] Address [address] [place] [address]. [place], [place] [address] [place] [address] Care Team Providers Care Lecturer In Marketing Name Role Phone Vernon Mercedes MD Primary Care Provider [phone] Evaristo Allan MD Unavailable Unavailabl Raul Duran MD Unavailable Unavailabl Danny Lopes MD Unavailable [phone] Gayle Arce APRN, HAND LAUNDERER-C Unavailable [phone] Reason for Referral * Imaging (Routine) - Closed Specialty Diagnoses / Procedures Referred By Contac t Referred To Contact RADIOLOGY Diagnoses Elevated liver function tests Procedures US ABD LIMITED Lora Ace FNP-BC [address] [place] [address] Phone: tel: fax: Referral ID Status Reason Start Date Expiration Date Visits Re quested Visits Authorized [id number] Closed 05/04/2021 06/04/2022 1 1 RTAINMENT REPORTER Reason for Visit * Imaging (Routine) - Closed Specialty Diagnoses / Procedures Referred By Contac t Referred To Contact RADIOLOGY Diagnoses Elevated liver function tests Procedures US ABD LIMITED Lora Ace FNP-BC [address] [place] [address] Phone: tel: fax: Referral ID Status Reason Start Date Expiration Date Visits Re quested Visits Authorized [id number] Closed 05/04/2021 06/04/2022 1 1 Encounter Details Date Type Department Care Team (Late st Contact Info) Description 06/18/2021 7:42 AM ENTERTAINMENT REPORTER - 06/18/2021 11:59 PM ENTERTAINMENT REPORTER Hospital Encounter 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 No / Unsure 06/18/2021 7:40 AM ENTERTAINMENT REPORTER documented as of this encounter Functional Status [...] st Contact Info) Description 04/25/2024 11:00 AM ENTERTAINMENT REPORTER [facility]ointment [facility] [address] [place] [address] [place] [address] Ti Bonilla MD [address] [place] [address] 05/23/2024 3:30 PM ENTERTAINMENT REPORTER Office Visit [facility] [place] [address] Jyoti Escobar MD [address] [place] [address] documented as of this encounter Procedures Procedure Name Priority Date/Time Associated Diagnosis Comments US ABD LIMITED Routine 06/18/2021 7:50 AM ENTERTAINMENT REPORTER Elevated liver function tests documented in this encounter Results * US ABD LIMITED (06/18/2021 7:50 AM ENTERTAINMENT REPORTER) Anatomical Region Laterality Modality Abdomen Ultrasound 06/18/2021 3:25 PM ENTERTAINMENT REPORTER Impressions 06/18/2021 3:31 PM ENTERTAINMENT REPORTER IMPRESSION: Diffuse hepatic steatosis with focal fatty sparing adjacent to the gallbladder fossa. Ordered By: LORA SERNA Interpreted By: Gume Erwin DO, 06/18/2021 3:25 PM Narrative 06/18/2021 3:31 PM ENTERTAINMENT REPORTER Examination: Right upper quadrant ultrasound. Exam date: [...] Erwin DO, 06/18/2021 3:25 PM Lora Serna DIE ENGRAVER- ULTRASOUND Final Result documented in this encounter Visit Diagnoses Diagnosis Elevated liver function tests Other abnormal blood chemistry documented in this encounter Care Teams Lecturer In Marketing Relationship Specialty Start Date End Date Vernon Mercedes MD [address] [place] [address] PCP - General FAMILY PRACTICE 10/27/15 12/02/21 Evaristo Allan MD [facility] [place] [address] [place] Athletic Coach CARDIOVASCULAR DISEASE 08/19/16 Raul Santana MD [facility] [place] [address] CLINICAL CARDIAC ELECTROPHYSIOLOGY 06/16/17 Danny Blackwell MD 5 [place] [address] ORTHOPAEDIC SURGERY 05/01/19 Gayle Arce, GAME DESIGNER/CREATIVE DIRECTOR, HAND LAUNDERER-C [address] [facility] [address] [place] [address] NURSE PRACTITIONER 03/03/20 documented as of this encounter
--- OUTSIDE RECORDS SUMMARY | 2024-04-23 05:16 | XMS_ITS | Encounter Summary ---
Author Organization [facility] Address [address] [place] [address]. [place] [address] [place] [address] Care Team Providers Care Hair Machine Operator Name Role Phone Vernon Mercedes MD Primary Care Provider [phone] Elza Floyd MD Unavailable Unavailabl Raul Duran MD Unavailable Unavailabl Danny Lopes MD Unavailable [phone] Gayle Arce APRN, ASSOCIATE PRODUCER-C Unavailable Encounter Details Date Type Department Care Team (Late st Contact Info) Description 11/03/2021 Orders Only [facility] [address] [place] [address] Elza Floyd MD Social History [...] st Contact Info) Description 04/25/2024 11:00 AM ACUTE CARE NURSE PRACTITIONER Appointment [facility] [address] [place] [address] [place] [address] Ti Bonilla MD [address] [place] [phone] 05/23/2024 3:30 PM ACUTE CARE NURSE PRACTITIONER Office Visit [facility] [address] [facility] [place] [address] Jyoti Escobar MD [address] [place] [phone] documented as of this encounter Results * ELECTROCARDIOGRAM (11/03/2021 10:55 AM CDT) 11/03/2021 10:5 5 AM CDT Narrative [facility] - 11/04/2021 2:16 PM CDT ? [facility] ?[address], [place] ??[address] ? Test Date: ?2021-11-03 Pat Name: ? ELZA MCKEON ? Department: ?? 105 ? Room: ? Gender: ? Male ? Storage And Backup Administrator: ?? : ?1960 ? Requested By: ELZA FLOYD Order Number: [id number] ?Reading MD: ?? Arnel Murillo ? Measurements Intervals ?Mary Esther ? Rate: ? 71 ? P: ? CO: ? 0 ?QRS: ?60 QRSD: ? 110 ?T: ?47 QT: ? 399 ? QTc: ?436 ? Interpretive Statements ATRIAL FLUTTER/TACHYCARDIA INCOMPLETE RIGHT BUNDLE BRANCH BLOCK ABNORMAL RHYTHM ECG Procedure Note Arnel Murillo MD - 11/04/2021 [facility], [facility] [address] [place] [address] Test Date: 2021-11-03 Pat Name: [facility] Department: 105 Room: Gender: Male Storage And Backup Administrator: : 1960 Requested By: ELZA FLOYD Order Number: [id number] Reading MD: Arnel Murillo Measurements Intervals Mary Esther Rate: 71 P: CO: 0 QRS: 60 QRSD: 110 T: 47 QT: 399 QTc: 436 Interpretive Statements ATRIAL FLUTTER/TACHYCARDIA INCOMPLETE RIGHT BUNDLE BRANCH BLOCK ABNORMAL RHYTHM ECG Elza Floyd MD PROCEDURES-ORDERABLE NO LENO RGE Final Result [facility] documented in this encounter Visit Diagnoses Diagnosis Atrial flutter, unspecified type (CMS/HCC HHS/HCC)- Primary Paroxysmal atrial fibrillation (CMS/HCC HHS/HCC) Atrial fibrillation Lightheadedness Dizziness and giddiness Hypotension, unspecified hypotension type Coronary artery disease involving qagan tayagungin coronary artery of qagan tayagungin heart, unspecified whether angina present Coronary artery disease involving qagan tayagungin coronary artery of qagan tayagungin heart, unspecified whether angina present- Primary Paroxysmal atrial fibrillation (CMS/HCC HHS/HCC) Atrial fibrillation documented in this encounter Care Teams Hair Machine Operator Relationship Specialty Start Date End Date Vernon Mercedes MD [address] [facility] [place] [address] PCP - General FAMILY PRACTICE 10/27/15 12/02/21 Elza Floyd MD [address] [place] [address] [place] Control Valve Technician CARDIOVASCULAR DISEASE 08/19/16 Raul Santana MD [address] [place] [address] CLINICAL CARDIAC ELECTROPHYSIOLOGY 06/16/17 Danny Blackwell MD [address] [place] [address] ORTHOPAEDIC SURGERY 05/01/19 Gayle Arce, ELECTRON BEAM OPERATOR, ASSOCIATE PRODUCER-C [address] [facility] [address] [place] [address] NURSE PRACTITIONER 03/03/20 documented as of this encounter
--- OUTSIDE RECORDS SUMMARY | 2024-04-23 05:16 | XMS_ITS | Encounter Summary ---
Author Organization [facility] Address [address] [place] [address]. [place] [address] [place] [address] Care Team Providers Care Paper Testing Supervisor Name Role Phone Vernon Mrecedes MD Primary Care Provider [phone] Evaristo Allan MD Unavailable UnavailRaul Suresh MD Unavailable Unavailabl Danny Lopes MD Unavailable [phone] Gayle Arce APRN, MANAGER ASSEMBLY-C Unavailable Reason for Visit * Reason Onset Date Comments Information 09/03/2021 Encounter Details Date Type Department Care Team (Late st Contact Info) Description 09/03/2021 Telephone [facility] [address] [place] [address] Evaristo Allan MD Information Social [...] 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 Allan: needs EKG on Tuesday at [facility]; decrease metoprolol succinate 100 mg BID Phoned patient, message left with above information Requested that he call back with any questions. documented in this encounter Plan of Treatment Upcoming Encounters Date Type Department Care Team (Late st Contact Info) Description 04/25/2024 11:00 AM QUANTITATIVE ANALYST DEVELOPER Appointment [facility] [address] [place] [address] [place] [address] Ti Bonilla MD [address] [place] [phone] 05/23/2024 3:30 PM QUANTITATIVE ANALYST DEVELOPER Office Visit [facility] [address] [place] [address] Jyoti Escobar MD [address] [place], [place] [address] documented as of this encounter Visit Diagnoses Not on filedocumented in this encounter Care Teams Paper Testing Supervisor Relationship Specialty Start Date End Date Vernon Mercedes MD [address] [place] [address] PCP - General FAMILY PRACTICE 10/27/15 12/02/21 Evaristo Allan MD [facility] [place] [address] [place] Ordnance Officer CARDIOVASCULAR DISEASE 08/19/16 Raul Santana MD [address] [place] [address] CLINICAL CARDIAC ELECTROPHYSIOLOGY 06/16/17 Danny Blackwell MD 5 [place] [address] ORTHOPAEDIC SURGERY 05/01/19 Gayle Arce APRN, MANAGER ASSEMBLY-C [address] [facility] [address] [place] [phone] NURSE PRACTITIONER 03/03/20 documented as of this encounter
--- OUTSIDE RECORDS SUMMARY | 2024-04-23 05:16 | XMS_ITS | Encounter Summary ---
Author Organization [facility] Address [address] [place] [address]. [place], [place] [address] [place] [address] Care Team Providers Care Machine Filler Shredder Name Role Phone Vernon Mercedes MD Primary Care Provider [phone] Evaristo Allan MD Unavailable UnavailRaul Suresh MD Unavailable Unavailabl Danny Lopes MD Unavailable [phone] Gayle Arce APRN, CORONER TRANSPORT TECHNICIAN-C Unavailable [phone] Encounter Details Date Type Department Care Team [...] st Contact Info) Description 04/25/2024 11:00 AM PHYSICAL EDUCATION INSTRUCTOR Appointment [facility] [address] [place] [address] Ti Bonilla MD [address] [place] [phone] 05/23/2024 3:30 PM PHYSICAL EDUCATION INSTRUCTOR Office Visit [facility] [address] [place] [address] Jyoti Escobar MD [address] [place] [address] documented as of this encounter Visit Diagnoses Not on filedocumented in this encounter Care Teams Machine Filler Shredder Relationship Specialty Start Date End Date Vernon Mercedes MD [address] [place] [address] PCP - General FAMILY PRACTICE 10/27/15 12/02/21 Evaristo Allan MD [address] [place] [address] [place] Button Cutter CARDIOVASCULAR DISEASE 08/19/16 Raul Santana MD [address] [place] [address] CLINICAL CARDIAC ELECTROPHYSIOLOGY 06/16/17 Danny Blackwell MD [address] [place] [address] ORTHOPAEDIC SURGERY 05/01/19 Gayle Arce, BARBARA, CORONER TRANSPORT TECHNICIAN-C [address] [facility] [place] [address] [place] [phone] NURSE PRACTITIONER 03/03/20 documented as of this encounter
--- OUTSIDE RECORDS SUMMARY | 2024-04-23 05:16 | XMS_ITS | Encounter Summary ---
Author Organization [facility] Address [address] [place] [address]. 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 No / Unsure 05/23/2021 9:00 AM MRI SPECIAL PROCEDURES TECHNOLOGIST documented as of this encounter Functional Status [...] st Contact Info) Description 04/25/2024 11:00 AM MRI SPECIAL PROCEDURES TECHNOLOGIST Appointment [facility] [address] [place] [address] Ti Bonilla MD [address] [place] [phone] 05/23/2024 3:30 PM MRI SPECIAL PROCEDURES TECHNOLOGIST Office Visit [facility] [address] [place] [phone] Jyoti Escobar MD [address] [place] [address] documented as of this encounter Visit Diagnoses Not on filedocumented in this encounter Additional Health Concerns Infection Onset Date Last Indicated Resolved Time COVID-19 Rule Out 05/23/2021 05/23/2021 05/25/2021 3:02 PM MRI SPECIAL PROCEDURES TECHNOLOGIST documented as of this encounter Care Teams Wool Hat Finisher Relationship Specialty Start Date End Date Vernon Mercedes MD [address] [place] [phone] PCP - General FAMILY PRACTICE 10/27/15 12/02/21 Evaristo Allan MD [address] [facility] [place] [address] [place] Aoc Director Intelligence Officer CARDIOVASCULAR DISEASE 08/19/16 Raul Santana MD [address] [place] [address] CLINICAL CARDIAC ELECTROPHYSIOLOGY 06/16/17 Danny Blackwell MD 5 [place] [address] ORTHOPAEDIC SURGERY 05/01/19 Gayle Arce, BARBARA, QUALITY SUPERVISOR-C [address] [facility] [address] [place] [address] NURSE PRACTITIONER 03/03/20 documented as of this encounter
--- OUTSIDE RECORDS SUMMARY | 2024-04-23 05:16 | XMS_ITS | Encounter Summary ---
Author Organization [facility] Address [address] [place] [address]. [place], [place] [address] [place] [address] Care Team Providers Care Icu Registered Nurse Name Role Phone Ton Mercedes MD Primary Care Provider [phone] Evaristo Allan MD Unavailable UnavailRaul Suresh MD Unavailable Unavailabl Danny Lopes MD Unavailable [phone] Gayle Arce APRN, MEDICAL PSYCHOTHERAPIST-C Unavailable Reason for Visit * Auth/Cert Specialty Diagnoses / Procedures Referred By Charito t Referred To Contact Diagnoses Microhematuria Microhematuria Procedures CYSTOURETHROSCOPY CYSTOSCOPY FLEXIBLE Referral ID Status Reason Start Date Expiration Date Visits Re quested Visits Authorized [id number] 1 1 Encounter Details Date Type Department Care Team (Latest Contact Info) Description 05/26/2021 9:27 AM TERMINAL BLOCK ASSEMBLER - 05/26/2021 11:00 AM TERMINAL BLOCK ASSEMBLER [facility] [place] [address] [place] [address] [place] [address] Discharge Disposition: Home or Self Care [...] Coronavirus/COVID-19? No / Unsure 05/26/2021 9:27 AM TERMINAL BLOCK ASSEMBLER documented as of this encounter Last Filed Vital Signs Vital Sign Reading Time Taken Comments Blood Pressure 112/62 05/26/2021 10:51 AM TERMINAL BLOCK ASSEMBLER Pulse 102 05/26/2021 10:51 AM TERMINAL BLOCK ASSEMBLER Temperature 36.2 ??C (97.2 ??F) 05/26/2021 10:[address] Respiratory Rate 20 05/26/2021 10:51 AM TERMINAL BLOCK ASSEMBLER Oxygen Saturation 98% 05/26/2021 10:51 AM TERMINAL BLOCK ASSEMBLER Inhaled Oxygen Concentration - - Weight 113.4 kg (250 lb) 05/20/2021 12:49 PM TERMINAL BLOCK ASSEMBLER Height 177.8 cm (5' 10 ) 05/20/2021 12:49 PM TERMINAL BLOCK ASSEMBLER Body Mass Index 35.87 05/20/2021 12:49 PM TERMINAL BLOCK ASSEMBLER documented in this encounter Functional Status * [...] through Care Everywhere. * Cystoscopy Discharge Instructions (Uruguayan) documented in this encounter Medications at Time [...] CATHETERIZATION 01/04/2018 occluded prox RCA w/well developed vepb-qb-inidr collaterals lvef 55-60% ??? CARDIAC CATHETERIZATION 11/13/2018 ??? FRACTURE SURGERY ??? 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 HERNIA REPAIR ??? JOINT REPLACEMENT ??? KNEE ARTHROPLASTY Bilateral ??? LITHOTRIPSY ??? XA ABLATION 05/19/2016 ??? XA CORONARY INTERVENTION 03/24/2018 SLASH TRIMMER PCI-mid RCA Family History Problem Relation Name [...] TRUEPLUS PEN NEEDLES 31G X 8 MM [facility] Current Facility-Administered Medications: ??? sodium chloride 0.9 [...] Diascopy(CYSTOSCOPY) today ANA MORENO III, MD 05/26/2021 INAL BLOCK ASSEMBLER documented in this encounter OR Notes * Brief Op Note - Ana Moreno III, MD - 05/26/2021 10:51 AM CST [facility] Brief Op HSHSCYSTOSCOPY FLEXIBLE Procedure Note Evaristo Bonny Garcia 05/26/2021 1032 Procedure(s) (LRB): CYSTOSCOPY FLEXIBLE (N/A) Surgeon(s): Ana Moreno III, MD Supervisor Glycerin: None Anesthesia: Local Pre-Op Diagnosis: Microhematuria Post-Op Diagnosis: Same Findings: Normal cysto, CCT showed 2 left renal small stones and a 5 mm RIGHT AML Estimated Blood Loss: Minimal Specimens: None ANA MORENO III, MD Date: 05/26/2021 Time: 10:53 AM INAL BLOCK ASSEMBLER * Op Note - Ana Moreno III, [...] on the growth of his kidney stones. INAL BLOCK ASSEMBLER documented in this encounter Plan of Treatment Upcoming Encounters Date Type Department Care Team (Late st Contact Info) Description 04/25/2024 11:00 AM TERMINAL BLOCK ASSEMBLER Appointment [facility] [facility] [place] [address] Ti Bonilla MD [address] [place] [phone] 05/23/2024 3:30 PM TERMINAL BLOCK ASSEMBLER Office Visit [facility] [place] [address] Jyoti Escobar MD [address] [place] [phone] documented as of this encounter Procedures Procedure Name Priority Date/Time Associated Diagnosis Comments CYSTOURETHROSCOPY 05/26/2021 10: 22 AM TERMINAL BLOCK ASSEMBLER Microhematuria Case Notes PCR NEG. documented in [...] Tue05/26/21 at 1115 Given 05/26/2021 10:59 AM TERMINAL BLOCK ASSEMBLER 100 mg documented in this encounter Active and Recently Administered Medications Times are shown in TERMINAL BLOCK ASSEMBLER. Scheduled Medication Order 05/24/2021 05/25/2021 05/26/2021 nitrofurantoin [...] MD) documented in this encounter Care Teams Icu Registered Nurse Relationship Specialty Start Date End Date Ton Mercedes MD [address] [place] [address] PCP - General FAMILY PRACTICE 10/27/15 12/02/21 Evaristo Allan MD [address] [place] [address] [place] [employer]soles Channel Opener CARDIOVASCULAR DISEASE 08/19/16 Raul Santana MD [facility] [place] [address] CLINICAL CARDIAC ELECTROPHYSIOLOGY 06/16/17 Danny Blackwell MD [address] [place] [address] ORTHOPAEDIC SURGERY 05/01/19 Gayle Arce, BARBARA, MEDICAL PSYCHOTHERAPIST-C [address] [facility] [address] [place] [phone] NURSE PRACTITIONER 03/03/20 documented as of this encounter
--- OUTSIDE RECORDS SUMMARY | 2024-04-23 05:16 | XMS_ITS | Encounter Summary ---
Author Organization [facility] Address [address] [place] [address]. [place], [place] [address] [place] [address] Care Team Providers Care Butter Melter Name Role Phone Ton Mercedes MD Primary Care Provider [phone] Evaristo Allan MD Unavailable Unavailabl Raul Duran MD Unavailable Unavailabl Danny Lopes MD Unavailable [phone] Gayle Arce APRN, SALES REPRESENTATIVE AIRCRAFT-C Unavailable Reason for Visit * Auth/Cert Specialty Diagnoses / Procedures Referred By Charito t Referred To Contact Diagnoses Microhematuria Microhematuria Procedures CYSTOURETHROSCOPY CYSTOSCOPY FLEXIBLE Referral ID Status Reason Start Date Expiration Date Visits Re quested Visits Authorized [id number] 1 1 Encounter Details Date Type Department Care Team (Late st Contact Info) Description 05/26/2021 10:32 AM GARBAGE COLLECTOR DRIVER - 05/26/2021 11:01 AM GARBAGE COLLECTOR DRIVER [facility] [place] [address] [place] [address] [place] [address] [place] [phone] CYSTOSCOPY FLEXIBLE Surgery Details Date/Time Status [...] 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 No / Unsure 05/26/2021 9:27 AM GARBAGE COLLECTOR DRIVER documented as of this encounter Last Filed Vital Signs Vital Sign Reading Time Taken Comments Blood Pressure 112/62 05/26/2021 10:51 AM GARBAGE COLLECTOR DRIVER Pulse 102 05/26/2021 10:51 AM GARBAGE COLLECTOR DRIVER Temperature 36.2 ??C (97.2 ??F) 05/26/2021 10:[address] Respiratory Rate 20 05/26/2021 10:51 AM GARBAGE COLLECTOR DRIVER Oxygen Saturation 98% 05/26/2021 10:51 AM GARBAGE COLLECTOR DRIVER Inhaled Oxygen Concentration - - Weight 113.4 kg (250 lb) 05/20/2021 12:49 PM GARBAGE COLLECTOR DRIVER Height 177.8 cm (5' 10 ) 05/20/2021 12:49 PM GARBAGE COLLECTOR DRIVER Body Mass Index 35.87 05/20/2021 12:49 PM GARBAGE COLLECTOR DRIVER documented in this encounter Functional Status * [...] through Care Everywhere. * Cystoscopy Discharge Instructions (Lithuanian) documented in this encounter Medications at Time [...] CATHETERIZATION 01/04/2018 occluded prox RCA w/well developed qieq-qu-qilnl collaterals lvef 55-60% ??? CARDIAC CATHETERIZATION 11/13/2018 ??? FRACTURE SURGERY ??? 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 HERNIA REPAIR ??? JOINT REPLACEMENT ??? KNEE ARTHROPLASTY Bilateral ??? LITHOTRIPSY ??? XA ABLATION 05/19/2016 ??? XA CORONARY INTERVENTION 03/24/2018 BETTING CLERKS PCI-mid RCA Family History Problem Relation Name [...] 8 MM [facility] Current Facility-Administered Medications: ??? sodium chloride 0.9 [...] [facility] 31[facility] , Disp: , Rfl: Principal Problem: Microhematuria [...] Diascopy(CYSTOSCOPY) today ANA MORENO III, MD 05/26/2021 AGE COLLECTOR DRIVER documented in this encounter OR Notes * Brief Op Note - Ana Moreno III, MD - 05/26/2021 10:51 AM CST [facility] Brief Op HSHSCYSTOSCOPY FLEXIBLE Procedure Note Evaristo Zelaya 05/26/2021 1032 Procedure(s) (LRB): CYSTOSCOPY FLEXIBLE (N/A) Surgeon(s): Ana Moreno III, MD Junior Underwriter: None Anesthesia: Local Pre-Op Diagnosis: Microhematuria Post-Op Diagnosis: Same Findings: Normal cysto, CCT showed 2 left renal small stones and a 5 mm RIGHT AML Estimated Blood Loss: Minimal Specimens: None ANA MORENO III, MD Date: 05/26/2021 Time: 10:53 AM AGE COLLECTOR DRIVER * Op Note - Ana Moreno III, [...] on the growth of his kidney stones. AGE COLLECTOR DRIVER documented in this encounter Plan of Treatment Upcoming Encounters Date Type Department Care Team (Late st Contact Info) Description 04/25/2024 11:00 AM GARBAGE COLLECTOR DRIVER [facility]ointment [facility] [address] [facility] [place] [address] Ti Bonilla MD [address] [place] [phone] 05/23/2024 3:30 PM GARBAGE COLLECTOR DRIVER Office Visit [facility] [address] [facility] [place] [phone] Jyoti Escobar MD [address] [place] [address] documented as of this encounter Procedures Procedure Name Priority Date/Time Associated Diagnosis Comments CYSTOURETHROSCOPY 05/26/2021 10: 22 AM GARBAGE COLLECTOR DRIVER Microhematuria Case Notes PCR NEG. documented in [...] at 1043, Intra-Op Given 05/26/2021 10:37 AM GARBAGE COLLECTOR DRIVER 1 Application. nitrofurantoin (macrocrystal-monohydrat e) (MACROBID) 100 MG capsule 1 dose, Starting on Tue05/26/21 at 1057, Until Tue05/26/21 at 1059, Created by cabinet override nitrofurantoin (macrocrystal-monohydrat e) (MACROBID) capsule 100 mg 100 mg, Oral, Once, 1 dose, On Tue05/26/21 at 1115 Given 05/26/2021 10:59 AM GARBAGE COLLECTOR DRIVER 100 mg sodium chloride 0.9% infusion Continuous PRN, Starting on Tue05/26/21 at 1039, Until Tue05/26/21 at 1039, Intra-Op New Bag 05/26/2021 10:39 AM GARBAGE COLLECTOR DRIVER 125 mL/hr 125 mL/hr documented in this encounter Active and Recently Administered Medications Times are shown in GARBAGE COLLECTOR DRIVER. Scheduled Medication Order 05/24/2021 05/25/2021 05/26/2021 nitrofurantoin [...] MD) documented in this encounter Care Teams Butter Melter Relationship Specialty Start Date End Date Ton Mercedes MD [address] [place] [phone] PCP - General FAMILY PRACTICE 10/27/15 12/02/21 Evaristo Allan MD [address] [place] [address] [place] Well Surveying Engineer CARDIOVASCULAR DISEASE 08/19/16 Raul Santana MD Count includes the [facility] [place] [address] CLINICAL CARDIAC ELECTROPHYSIOLOGY 06/16/17 Danny Blackwell MD [address] [place] [address] ORTHOPAEDIC SURGERY 05/01/19 Gayle Arce, JINRIKSHA DRIVER, SALES REPRESENTATIVE AIRCRAFT-C [address] [facility] [address] [place] [address] NURSE PRACTITIONER 03/03/20 documented as of this encounter
--- OUTSIDE RECORDS SUMMARY | 2024-04-23 05:16 | XMS_ITS | Encounter Summary ---
Author Organization [facility] Address [address] [place] [address]. [place] [address] [place] [address] Care Team Providers Care Lead Manufacturing Engineer Name Role Phone Ton Mercedes MD Primary Care Provider [phone] Evaristo Allan MD Unavailable Unavailabl Raul Duran MD Unavailable Unavailabl Danny Lopse MD Unavailable [phone] Gayle Arce APRN CAR DETAILER-C Unavailable [phone] Reason for Visit * Reason Comments Abnormal EKG Atrial Flutter Atrial Fibrillation Edema Palpitations Follow Up Heart Problem Dizziness Fatigue Arrhythmia CHF Encounter Details Date Type Department Care Team (Late st Contact Info) Description 11/03/2021 11:15 AM CDT Office Visit [facility] [address] [place] [address] Joshua Yin MD [address] [place] [address] Abnormal EKG; Atrial Flutter; Atrial [...] 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 Last seen by Myah Handley [...] TRUEPLUS PEN NEEDLES 31G X 8 MM [facility], , Disp: , Rfl: Allergies Allergies Allergen [...] CATHETERIZATION 01/04/2018 occluded prox RCA w/well developed trcw-uq-wxepz collaterals lvef 55-60% ??? CARDIAC CATHETERIZATION 11/13/2018 ??? FRACTURE SURGERY ??? 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 HERNIA REPAIR ??? JOINT REPLACEMENT ??? KNEE ARTHROPLASTY Bilateral ??? LITHOTRIPSY ??? XA ABLATION 05/19/2016 ??? XA CORONARY INTERVENTION 03/24/2018 DRAW MACHINE OPERATOR PCI-mid RCA Social History Tobacco Use ??? [...] Contact Info) Description 04/25/2024 11:00 AM WORLD RENOWNED CHEF AND RESTAURANT OWNER Appointment [facility] [address] [place] [address] [place] [address] Ti Bonilla MD [address] [place] [phone] 05/23/2024 3:30 PM WORLD RENOWNED CHEF AND RESTAURANT OWNER [facility] [address] [place] [address] Jyoti Escobar MD [address] [place] [address] documented as of this encounter Visit Diagnoses Diagnosis Atypical atrial flutter (CMS/HCC HHS/HCC)- Primary Atrial flutter documented in this encounter Care Teams Lead Manufacturing Engineer Relationship Specialty Start Date End Date Ton Mercedes MD [address] [place] [phone] PCP - General FAMILY PRACTICE 10/27/15 12/02/21 Evaristo Allan MD [facility] [place] [address] Spivey Muck Hauler CARDIOVASCULAR DISEASE 08/19/16 Raul Santana MD [address] [place] [address] CLINICAL CARDIAC ELECTROPHYSIOLOGY 06/16/17 Danny Blackwell MD 5 [place] [address] ORTHOPAEDIC SURGERY 05/01/19 Gayle Arce APRN, CAR DETAILER-C 9 [facility] [address] [place] [address] NURSE PRACTITIONER 03/03/20 documented as of this encounter
--- OUTSIDE RECORDS SUMMARY | 2024-04-23 05:16 | XMS_ITS | Encounter Summary ---
Author Organization [facility] Address [address] [place] [address]. 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 Yes 05/20/2021 12:50 PM LEASE PICKER documented as of this encounter Functional [...] st Contact Info) Description 04/25/2024 11:00 AM LEASE PICKER Appointment [facility] [address] [place] [address] Ti Bonilla MD [address] [place] [phone] 05/23/2024 3:30 PM LEASE PICKER Office Visit [facility] [address] [place] [address] Jyoti Escobar MD [address] [place] [address] documented as of this encounter Visit Diagnoses Not on filedocumented in this encounter Care Teams Acid Tank Cleaner Relationship Specialty Start Date End Date Vernon Mercedes MD [address] [place] [address] PCP - General FAMILY PRACTICE 10/27/15 12/02/21 [place]varisto [place] [address] [place] Agricultural Inspector CARDIOVASCULAR DISEASE 08/19/16 Raul Santana MD [address] [place] [address] CLINICAL CARDIAC ELECTROPHYSIOLOGY 06/16/17 Danny Blackwell MD [address] [place] [address] ORTHOPAEDIC SURGERY 05/01/19 Gayle Arce, SCUBA DIVE TRAINING INSTRUCTOR, THERMAL CUTTER HAND-C [address] [facility] [address] [place] [phone] NURSE PRACTITIONER 03/03/20 documented as of this encounter
--- OUTSIDE RECORDS SUMMARY | 2024-04-23 05:16 | XMS_ITS | Encounter Summary ---
Author Organization [facility] Address [address] [place] [address]. [place], [place] [address] [place] [address] Care Team Providers Care Math Coach Name Role Phone Vernon Mercedes MD Primary Care Provider [phone] Evaristo Allan MD Unavailable UnavailRaul Suresh MD Unavailable Unavailabl Danny Lopes MD Unavailable [phone] Gayle Arce APRN, SEAMER OPERATOR-C Unavailable Encounter Details Date Type Department [...] Assessment Author Status No 10/15/2019 4:47 PM Kayyln Rodriguez RN Active documented as of this [...] st Contact Info) Description 04/25/2024 11:00 AM TREATING PLANT SUPERVISOR Appointment [facility] [address] [place] [address] Ti Bonilla MD [address] [place] [phone] 05/23/2024 3:30 PM TREATING PLANT SUPERVISOR Office Visit [facility] [address] [place] [address] Jyoti Escobar MD [address] [place] [address] documented as of this encounter Visit Diagnoses Not on filedocumented in this encounter Care Teams Math Coach Relationship Specialty Start Date End Date Vernon Mercedes MD [address] [place] [address] PCP - General FAMILY PRACTICE 10/27/15 12/02/21 Evaristo Allan MD [address] [place] [address] [place] Marine Reporter CARDIOVASCULAR DISEASE 08/19/16 Raul Santana MD [address] [place] [address] CLINICAL CARDIAC ELECTROPHYSIOLOGY 06/16/17 Danny Blackwell MD [address] [place] [address] ORTHOPAEDIC SURGERY 05/01/19 Gayle Arce, BARBARA, SEAMER OPERATOR-C [address] [facility] [address] [place] [address] NURSE PRACTITIONER 03/03/20 documented as of this encounter
--- OUTSIDE RECORDS SUMMARY | 2024-04-23 05:16 | XMS_ITS | Encounter Summary ---
Author Organization [facility] Address [address] [place] [address]. [place], [place] [address] [place] [address] Care Team Providers Care Housecleaner Name Role Phone Vernon Mercedes MD Primary Care Provider [phone] Evaristo Allan MD Unavailable Unavailabl Raul Duran MD Unavailable Unavailabl Danny Lopes MD Unavailable [phone] Gayle Arce APRN, WAD LUBRICATOR-C Unavailable Encounter Details Date Type Department Care Team (Latest Contact Info) Description 05/25/2021 4:02 PM ROW BOSS - 05/25/2021 11:59 PM ROW BOSS Hospital Encounter [facility] [address] [place] [address] [place] [address] [place] [phone] Discharge Disposition: Home or Self Care [...] 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 No / Unsure 05/25/2021 7:02 AM ROW BOSS documented as of this encounter Functional Status [...] st Contact Info) Description 04/25/2024 11:00 AM R[address] B[address] [facility] [address] [place] [address] Ti Bonilla MD [address] [place] [phone] 05/23/2024 3:30 PM ROW BOSS Office Visit [facility] [address] [place] [address] Jyoti Escobar MD [address] [place], [place] [address] documented as of this encounter Procedures Procedure Name Priority Date/Time Associated Diagnosis Comments CORONAVIRUS (COVID 19) Routine 05/25/2021 4:06 PM ROW BOSS Pre-operative laboratory examination documented in this encounter Results * CORONAVIRUS (COVID 19) PCR (05/25/2021 4:06 PM ROW BOSS) SPEC DESCRIPTION NASAL 05/25/19 4:06 PM ROW BOSS [facility] CORONAVIRUS SARS COV 2 PCR (RESP) NEGATIVE NEGATIVE 05/26/2021 3:50 AM ROW BOSS [facility] Comment: THE SARS-CoV-2 TEST HAS BEEN AUTHORIZED BY THE FDA UNDER AN EUA FOR USE BY AUTHORIZED LABORATORIES. PERFORMED BY NUCLEIC ACID AMPLIFICATION PCR FIRST TEST NO 05/25/2021 4:06 PM ROW BOSS [facility] EMPLOYED IN HEALTHCARE YES 05/25/2021 4:06 PM ROW BOSS [facility] SYMPTOMATIC DEFINED BY CDC NO 05/25/2021 4:06 PM ROW BOSS [facility] HOSPITALIZATION STATUS NO 05/25/2021 4:06 PM ROW BOSS [facility] PATIENT IN ICU NO 05/25/2021 4:06 PM ROW BOSS [facility] YES 05/25/2021 4:06 PM ROW BOSS [facility] NASAL STRUCTURE / Unknown 05/25/2021 4:06 PM ROW BOSS us Ana Moreno III, MD MICROBIOLOGY - GENERAL O RDERABLES Final Result [facility] [address] [place] [address], [place] [phone] [facility] [address] [place] [address], [place] [phone] documented in this encounter Visit Diagnoses Diagnosis Pre-operative laboratory examination Pre-procedural laboratory examination documented in this encounter Additional Health Concerns Infection Onset Date Last Indicated Resolved Time COVID-19 Rule Out 05/25/2021 05/25/2021 05/26/2021 3:50 AM ROW BOSS documented as of this encounter Care Teams Housecleaner Relationship Specialty Start Date End Date Vernon Mercedes MD [address] [place] [phone] PCP - General FAMILY PRACTICE 10/27/15 12/02/21 Evaristo Allan MD [address] [place] [address] [place] Private Investigator Surveillance CARDIOVASCULAR DISEASE 08/19/16 Raul Santana MD [address] [place] [address] CLINICAL CARDIAC ELECTROPHYSIOLOGY 06/16/17 Danny Blackwell MD 5 [place] [address] ORTHOPAEDIC SURGERY 05/01/19 Gayle Arce, CLINICAL LABORATORY SCIENCE PROFESSOR, WAD LUBRICATOR-C [address] [facility] [address] [place] [address] NURSE PRACTITIONER 03/03/20 documented as of this encounter
--- OUTSIDE RECORDS SUMMARY | 2024-04-23 05:16 | XMS_ITS | Encounter Summary ---
Author Organization [facility] Address [address] [place] [address]. [place], [place] [address] [place] [address] Care Team Providers Care Yard Supervisor Cotton Gin Name Role Phone Vernon Mercedes MD Primary Care Provider [phone] Evaristo Allan MD Unavailable UnavailRaul Suresh MD Unavailable Unavailabl Danny Lopes MD Unavailable [phone] Gayle Arce APRN MICROBIOLOGY LABORATORY MANAGER-C Unavailable Encounter Details Date Type Department Care Team (Late st Contact Info) Description 09/03/2021 Orders Only [facility] [address] [address] Danny Blackwell MD [address] [place], [place] [phone] Social History Tobacco Use Types Packs/Day Years [...] st Contact Info) Description 04/25/2024 11:00 AM LEVEL VIAL GRINDER Appointment [facility] [address] [place] [address] Ti Bonilla MD [address] [place] [phone] 05/23/2024 3:30 PM LEVEL VIAL GRINDER Office Visit [facility] [address] [place] [phone] Jyoti Escobar MD [address] [place] [phone] documented as of this encounter Visit Diagnoses Diagnosis Right foot pain- Primary Pain in limb documented in this encounter Care Teams Yard Supervisor Cotton Gin Relationship Specialty Start Date End Date Vernon Mercedes MD [address] [place] [address] PCP - General FAMILY PRACTICE 10/27/15 12/02/21 Evaristo Allan MD [address] [place] [address] [place] Market Research Associate CARDIOVASCULAR DISEASE 08/19/16 Raul Santana MD [address] [place] [address] CLINICAL CARDIAC ELECTROPHYSIOLOGY 06/16/17 Danny Blackwell MD [address] [place] [address] ORTHOPAEDIC SURGERY 05/01/19 Gayle Arce, PACKAGER MACHINE, MICROBIOLOGY LABORATORY MANAGER-C [address] [facility] [address] [place] [address] NURSE PRACTITIONER 03/03/20 documented as of this encounter
--- OUTSIDE RECORDS SUMMARY | 2024-04-23 05:17 | XMS_ITS | Encounter Summary ---
Author Organization [facility] Address [address] [place] [address]. 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 [...] st Contact Info) Description 04/25/2024 11:00 AM TEAMSITE DEVELOPER Appointment [facility] [address] [place] [address] Ti Bonilla MD [address] [place] [phone] 05/23/2024 3:30 PM TEAMSITE DEVELOPER Office Visit [facility] [address] [place] [address] Jyoti Escobar MD [address] [place] [phone] documented as of this encounter Visit Diagnoses Not on filedocumented in this encounter Care Teams Cooler Tender Relationship Specialty Start Date End Date Vernon Mercedes MD [address] [place] [phone] PCP - General FAMILY PRACTICE 10/27/15 12/02/21 [place] [address] [employer] Assembly Ii Laborer CARDIOVASCULAR DISEASE 08/19/16 Raul Santana MD [address] [place] [address] CLINICAL CARDIAC ELECTROPHYSIOLOGY 06/16/17 Danny Blackwell MD [address] [place] [address] ORTHOPAEDIC SURGERY 05/01/19 documented as of this encounter
--- OUTSIDE RECORDS SUMMARY | 2024-04-23 05:17 | XMS_ITS | Encounter Summary ---
Author Organization [facility] Address [address] [place] [address]. 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 Not on [...] st Contact Info) Description 04/25/2024 11:00 AM GANG WORKER Appointment [facility] [address] [place] [address] [place] [address] Ti Bonilla MD [address] [place] [phone] 05/23/2024 3:30 PM GANG WORKER Office Visit [facility] [address] [place] [address] Jyoti Escobar MD [address] [place] [address] Scheduled Orders Name Type Priority Associated Diagnoses Orde r Schedule ELECTROCARDIOGRAM (NON MIDMARK ACQUIRED) EKG-NonRad Routine Coronary artery disease involving [place] coronary artery of [place] heart without angina pectoris Ordered: 01/31/2020 documented as of this encounter Visit Diagnoses Diagnosis Coronary artery disease involving [place] coronary artery of [place] heart without angina pectoris- Primary documented in this encounter Care Teams First Assistant Manager Relationship Specialty Start Date End Date Vernon Mercedes MD [address] [place] [address] PCP - General FAMILY PRACTICE 10/27/15 12/02/21 Evaristo Allan MD [address] [place] [address] [place] Paper Products Inspector CARDIOVASCULAR DISEASE 08/19/16 Raul Santana MD [address] [place] [address] CLINICAL CARDIAC ELECTROPHYSIOLOGY 06/16/17 Danny Blackwell MD [address] [place] [address] ORTHOPAEDIC SURGERY 05/01/19 documented as of this encounter
--- OUTSIDE RECORDS SUMMARY | 2024-04-23 05:17 | XMS_ITS | Encounter Summary ---
Author Organization [facility] Address [address] [place] [address]. 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 No / Unsure 04/07/2021 7:54 AM RIDES ATTENDANT documented as of this encounter Functional Status [...] st Contact Info) Description 04/25/2024 11:00 AM RIDES ATTENDANT Appointment [facility] [address] [place] [address] Ti Bonilla MD [address] [place] [phone] 05/23/2024 3:30 PM RIDES ATTENDANT [facility] [address] [place] [address] Jyoti Escobar MD [address] [place] [address] documented as of this encounter Visit Diagnoses Not on filedocumented in this encounter Care Teams Event Technician Relationship Specialty Start Date End Date Vernon Mercedes MD [address] [place] [address] PCP - General FAMILY PRACTICE 10/27/15 12/02/21 Evaristo Allan MD [address] [place] [address] [place] Biological Photographer CARDIOVASCULAR DISEASE 08/19/16 Raul Santana MD [address] [place] [address] CLINICAL CARDIAC ELECTROPHYSIOLOGY 06/16/17 Danny Blackwell MD [address] [place] [address] ORTHOPAEDIC SURGERY 05/01/19 Gayle Arce, CLINICAL INFORMATICS MANAGER, SPARMAKER-C [address] [facility] [address] [place] [address] NURSE PRACTITIONER 03/03/20 documented as of this encounter
--- OUTSIDE RECORDS SUMMARY | 2024-04-23 05:17 | XMS_ITS | Encounter Summary ---
Author Organization [facility] Address [address] [place] [address]. [place] [address] [place] [address] Care Team Providers Care Dock Guard Name Role Phone Vernon Mercedes MD Primary Care Provider [phone] Evaristo Allan MD Unavailable Unavailabl Raul Duran MD Unavailable Unavailabl Danny Lopes MD Unavailable [phone] Gayle Arce APRN, TYPING POOL SUPERVISOR-C Unavailable Reason for Visit * Reason Onset Date Comments Appointment Request 03/03/2020 Encounter Details Date Type Department Care Team ([facility] Contact Info) Description 03/03/2020 Telephone [facility] [address] [place] [address] Gayle Arce APRN, TYPING POOL SUPERVISOR-C [address] [facility] [address] [place] [address] Appointment Request Social History Tobacco [...] 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 No / Unsure 02/21/2020 8:45 AM PARTNER ALLIANCE MANAGER documented as of this encounter Functional [...] OFFERED: LETTER SENT: no CARE TEAM: yes NER ALLIANCE MANAGER documented in this encounter Plan of Treatment Upcoming Encounters Date Type Department Care Team (Late st Contact Info) Description 04/25/2024 11:00 AM PARTNER ALLIANCE MANAGER Appointment [facility] [address] [place] [address] Ti Bonilla MD [address] [place] [phone] 05/23/2024 3:30 PM PARTNER ALLIANCE MANAGER Office Visit [facility] [address] [place] [phone] Jyoti Escobar MD [address] [place] [address] documented as of this encounter Visit Diagnoses Not on filedocumented in this encounter Care Teams Dock Guard Relationship Specialty Start Date End Date Vernon Mercedes MD [address] [place] [address] PCP - General FAMILY PRACTICE 10/27/15 12/02/21 Evaristo Allan MD [address] [place] [address] [place] Hides And Skins Colorer CARDIOVASCULAR DISEASE 08/19/16 Raul Santana MD [address] [place] [address] CLINICAL CARDIAC ELECTROPHYSIOLOGY 06/16/17 Danny Blackwell MD 5 [place] [address] ORTHOPAEDIC SURGERY 05/01/19 Gayle Arce APRN, TYPING POOL SUPERVISOR-C [address] [facility] [address] [place] [address] NURSE PRACTITIONER 03/03/20 documented as of this encounter
--- OUTSIDE RECORDS SUMMARY | 2024-04-23 05:17 | XMS_ITS | Encounter Summary ---
Author Organization [facility] Address [address] [place] [address]. [place] [address] [place] [address] Care Team Providers Care Assistant News Director Name Role Phone Vernon Mercedes MD Primary Care Provider [phone] Evaristo Allan MD Unavailable UnavailRaul Suresh MD Unavailable Unavailabl Danny Lopes MD Unavailable [phone] Gayle Arce APRN CHIEF WHARFINGER-C Unavailable [phone] Reason for Referral * Sleep Lab (Routine) - Closed Specialty Diagnoses / Procedures Referred By Charito ledbetter Referred To Contact [facility] Sleep Disorders Diagnoses Sleep apnea Procedures PSG with CPAP/BIPAP (22394) Vernon Mercedes MD [address] [place] [address] Phone: tel: fax: [facility] [address] [place] [address] Phone: tel: Referral ID Status Reason Start Date Expiration Date Visits Re quested Visits Authorized [id number] Closed 07/03/2020 10/01/2020 1 1 Encounter Details Date Type Department Care Team (Late st Contact Info) Description 07/03/2020 Transcribe Orders 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 Not on [...] st Contact Info) Description 04/25/2024 11:00 AM CHANCERY CLERK Appointment [facility] [address] [place] [address] Ti Bonilla MD [address] [place] [phone] 05/23/2024 3:30 PM CHANCERY CLERK Office Visit [facility] [address] [facility] [place] [address] Jyoti Escobar MD [address] [place] [address] documented as of this encounter Results * PSG with CPAP/BIPAP (80605) (07/30/2020 4:02 PM CDT) 07/30/2020 4:02 PM CDT Narrative ESCRIPTION - 07/30/2020 5:35 PM CDT SLEEP STUDY PLUS CPAP TITRATION ORDERED BY: ??Vernon Mercedes MD. INDICATION: ??To assess for sleep apnea. ??Patient with snoring and daytime sleepiness. A 60-year-old male, body weight 271 pounds, height of 5 feet 10 inches, BMI of 39, had symptoms of sleep apnea with snoring, daytime sleepiness, [place] sleepiness scale (ESS) of 17/24. METHOD USED: [...] mask, medium size. ??Close followup including downloads, pmel-xy-sdum evaluation. 2. ??Patient will need further detailed [...] is required. Elina Siegel MD FCCP Diplomate, [place] Board of sleep Medicine D: ??07/30/2020 04:02 PM #[id number] T: ??07/30/2020 04:33 PM /NTS Procedure Note Des Siegel MD - 07/30/2020 SLEEP STUDY PLUS CPAP TITRATION ORDERED BY: Vernon Mercedes MD. INDICATION: To assess for sleep apnea. Patient with snoring and daytimesleepiness. A 60-year-old male, body weight 271 pounds, height of 5 feet 10 inches,BMI of 39, had symptoms of sleep apnea with snoring, daytime sleepiness,[place] sleepiness scale (ESS) of 17/24. METHOD USED: [...] face mask, medium size. Close followup including downloads,rogk-dn-kjfq evaluation. 2. Patient will need further detailed [...] is required. Elina Siegel MD FCCP Diplomate, [place] Board of sleep Medicine #[id number] /NTS Vernon Mercedes MD SLEEP CENTER ORDERABLES Final Result ESCRIPTION documented in this encounter Visit Diagnoses Diagnosis Sleep apnea- Primary Unspecified sleep apnea Sleep apnea Unspecified sleep apnea documented in this encounter Care Teams Assistant News Director Relationship Specialty Start Date End Date Vernon Mercedes MD [address] [place] [phone] PCP - General FAMILY PRACTICE 10/27/15 12/02/21 Evaristo Allan MD [address] [place] [address] Maker CARDIOVASCULAR DISEASE 08/19/16 Raul Santana MD [facility] [place] [address] CLINICAL CARDIAC ELECTROPHYSIOLOGY 06/16/17 Danny Blackwell MD 5 [place] [address] ORTHOPAEDIC SURGERY 05/01/19 Gayle Arce APRN, CHIEF WHARFINGER-C [address] [facility] [address]57 [place] [phone] NURSE PRACTITIONER 03/03/20 documented as of this encounter
--- OUTSIDE RECORDS SUMMARY | 2024-04-23 05:17 | XMS_ITS | Encounter Summary ---
Author Organization [facility] Address [address] [place] [address]. [place], [place] [address] [place] [address] Care Team Providers Care Dictaphone Typist Name Role Phone Ton Mercedes MD Primary Care Provider [phone] Elza Allan MD Unavailable Unavailabl Raul Duran MD Unavailable Unavailabl Danny Lopes MD Unavailable [phone] Gayle Arce APRN, UNEMPLOYMENT INSURANCE DIRECTOR-C Unavailable [phone] Encounter Details Date Type Department Care Team (Latest Contact Info) Description 05/19/2021 1:08 PM ADULT SCHOOL COUNSELOR - 05/19/2021 11:59 PM ADULT SCHOOL COUNSELOR Hospital Encounter [facility] [address] [facility] [place] [address] [place] [address] [place] [address] Discharge Disposition: Home or Self [...] 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 No / Unsure 04/30/2021 2:41 PM ADULT SCHOOL COUNSELOR documented as of this encounter Functional Status [...] 8 MM [facility] 01/19/2021 aspirin EC 81 [...] Contact Info) Description 04/25/2024 11:00 AM ADULT SCHOOL COUNSELOR [facility]ointment [facility] [address] [facility] [place] [address] Ti Bonilla MD [address] [place] [phone] 05/23/2024 3:30 PM ADULT SCHOOL COUNSELOR Office Visit [facility] [place] [address] Jyoti Escobar MD [address] [place] [address] documented as of this encounter Procedures Procedure Name Priority Date/Time Associated Diagnosis Comments HC CYTOPATH URINE 3-5 MOL PROBES EA SPEC COMP ASSIST-90 Routine 05/19/2021 12:00 PM ADULT SCHOOL COUNSELOR Microscopic hematuria HC URINALYSIS AUTO W/MICRO Routine 05/19/2021 12:00 PM ADULT SCHOOL COUNSELOR Microscopic hematuria URINE BACTERIA CULTURE Routine 05/19/2021 12:00 PM ADULT SCHOOL COUNSELOR Microscopic hematuria CYTOLOGY GENERIC Routine 05/19/2021 12:0 0 AM ADULT SCHOOL COUNSELOR Microscopic hematuria documented in this encounter Results * BLADDER CANCER, FISH (05/19/2021 12:00 PM ADULT SCHOOL COUNSELOR) SPECIMEN SOURCE URINE 2 1:11 [address] [facility] CLINICAL INDICATION UNKNOWN 05/19/2021 1:11 [address] [facility] PRIOR THERAPY/TRANSPLAN T UNKNOWN 05/19/2021 1:11 [address] [facility] PHYSICIAN PHONE UNKNOWN 2 1:11 [address] [facility] CLIENT PHONE UNKNOWN 05/19/2021 1:11 [address] COUN[address] [facility] FISH BLADDER CANCER VOIDED URI REPORT 05/26/2021 10:39 AM ADULT SCHOOL COUNSELOR [employer] KRYSTYNA BARROW Comment: Order ID: ? [id number] Specimen Type: ?Urine Clinical Indication: ?Not provided RESULT: NEGATIVE RESULT FOR THE UROVYSION FISH ASSAY INTERPRETATION: A normal hybridization pattern was observed for chromosomes 3, 7, 9, and 17. This result is not indicative of bladder cancer according to the UroVysion Directional Insert ([employer]/IQ[employer]). Although the UroVysion test was designed to [...] as a POSITIVE result. Lucila Norman, Ph.D., [facility], Brain Picker, Cytogenetics and Genomics, Electronic Signature: ? 05/26/2021 10:53 AM Test Performed by [employer] [place], [employer] [facility], [address] [place] [address] Crow Aldana M.D., Ph.D., Director of Laboratories , [facility] [id number] URINE SPECIMEN / Unknown 05/19/2021 12:00 PM ADULT SCHOOL COUNSELOR us Ana Moreno III, MD PATHOLOGY/CYTOLOGY ORDER LONG Final Result [employer] , [facility] [address] [place] [address], * CULTURE URINE (05/19/2021 12:00 PM ADULT SCHOOL COUNSELOR) SPEC DESCRIPTION URINE CLEAN CATCH 05/19/2021 1:08 [address] [facility] SPECIAL REQUESTS NO SPECIAL REQUEST 05/19/2021 1:08 [address] COUN[address] [facility] CULTURE RESULT FEW CONTAMINANTS 06/2021 1:16 PM ADULT SCHOOL COUNSELOR [facility] URINE SPECIMEN OBTAINED BY CLEAN CATCH PROCEDURE / Unknown 05/19/2021 12:00 PM ADULT SCHOOL COUNSELOR 05/19/2021 1:10 PM ADULT SCHOOL COUNSELOR us Ana Moreno III, MD MICROBIOLOGY - GENERAL O RDERABLES Final Result [facility] [address] [place] [address], [place] [id number] [facility] [address] [place] [address], [place] [phone] * (ABNORMAL) URINALYSIS (05/19/2021 12:00 PM ADULT SCHOOL COUNSELOR) COLOR (U) YELLOW 05/19/2021 1:24 [address] COUN[address] [facility] TRANSPARENCY CLEAR 05/19/2021 1:24 PM [facility] SPECIFIC GRAVITY (U) 1.010 1.000 - 1.025 05/19/2021 1:24 [address] [facility] U PH 5.5 5.0 - 8.0 05/19/2021 1:24 [address] COUN[address] [facility] LEUKOCYTES (U) NEGATIVE NEGATIVE 05/19/2021 1:24 PM AD[address] COUN[address] [facility] NITRITES NEGATIVE NEGATIVE 05/19/2021 1:24 PM [facility] PROTEIN (U) NEGATIVE NEGATIVE 05/19/2021 1:24 PM [facility] URINE GLUCOSE 3+(A) NEGATIVE 05/19/2021 1:24 [address] COUN[address] [facility] KETONES MG/DL (U) NEGATIVE NEGATIVE 05/19/2021 1:24 PM [facility] UROBILINOGEN 0.2 <1.0 EU/DL 05/19/2021 1:24 PM AD[address] S[address]OL COUNSELOR [facility] BILIRUBIN (U) NEGATIVE NEGATIVE 05/19/2021 1:24 PM AD[address] SCHOOL COUNSELOR [facility] BLOOD (U) NEGATIVE NEGATIVE 05/19/2021 1:24 PM AD[address] SCHOOL COUNSELOR [facility] WBC/HPF 0-5 0 - 5 /HPF 05/19/2021 1:24 PM ADULT SCHOOL COUNSELOR [facility] RBC/HPF 0-5 0 - 5 /HPF 05/19/2021 1:24 PM ADULT SCHOOL COUNSELOR [facility] EPI/HPF OCCASIONAL /LPF 05/19/2021 1:24 PM ADULT SCHOOL COUNSELOR [facility] BACTERIA (U) TRACE /HPF 05/19/2021 1:24 PM AD[address]OL COUNSELOR [facility] URINE SPECIMEN OBTAINED BY CLEAN CATCH PROCEDURE / Unknown 05/19/2021 12:00 PM ADULT SCHOOL COUNSELOR us Ana Moreno III, MD URINE ORDERABLES Final R esult [facility] [address] [place] [address], * CYTOLOGY GENERIC (05/19/2021 12:00 AM ADULT SCHOOL COUNSELOR) CYTOLOGY OTHER [facility] ? Department of Laboratory Medicine ?[address] ?[place] [address] ? , extension [phone] ? Pathology Report ? Non-gynecologic Cytology Report Name: ELZA MCKEON ?Specimen #: [id number] Age: 9 1960 (Age: 61) ?Location: [facility] Sex: M ?Procedure Date: 05/19/2021 Hospital #: [id number] ?Date Received: 05/21/2021 Date Reported: 05/25/2021 Provider: ANA MORENO III, MD ?TON MERCEDES MD Source: URINE, VOIDED Clinical History: Hematuria Gross Description: SPECIMEN RECEIVED: ? 40 cc's of light yellow fluid ? SLIDES PREPARED: ?1 ThinPrep ?STAINS: ? Papanicolaou This case was interpreted and signed out at [facility], [address] [place] [address], [place], [place], [facility]. FINAL DIAGNOSIS: URINE, VOIDED: ? - ADEQUATE FOR EVALUATION. ? - NEGATIVE FOR HIGH-GRADE UROTHELIAL CARCINOMA. Electronically Signed Out ? DAVID ZAMORA MD [facility] 05/19/2021 05/21/2021 12: 43 PM ADULT SCHOOL COUNSELOR Comment:URINE, VOIDED us Ana Moreno III, MD PATHOLOGY/CYTOLOGY ORDER LONG Final Result [facility] [address] [place] [address], [phone] documented in this encounter Visit Diagnoses Diagnosis Microscopic hematuria documented in this encounter Care Teams Dictaphone Typist Relationship Specialty Start Date End Date Ton Mercedes MD [address] [place] [phone] PCP - General FAMILY PRACTICE 10/27/15 12/02/21 Elza Allan MD [address] [place] [address] [facility] CARDIOVASCULAR DISEASE 08/19/16 Raul Santana MD [facility] [place] [address] CLINICAL CARDIAC ELECTROPHYSIOLOGY 06/16/17 Danny Blackwell MD [address] [place] [address] ORTHOPAEDIC SURGERY 05/01/19 Gayle Arce, PAVING MACHINE OPERATOR, UNEMPLOYMENT INSURANCE DIRECTOR-C [address] [facility] [address] [place] [address] NURSE PRACTITIONER 03/03/20 documented as of this encounter
--- OUTSIDE RECORDS SUMMARY | 2024-04-23 05:17 | XMS_ITS | Encounter Summary ---
Author Organization [facility] Address [address] [place] [address]. [place], [place] [address] [place] [address] Care Team Providers Care Molded Goods Inspector Trimmer Name Role Phone Ton Delgado MD Primary Care Provider [phone] Evaristo Allan MD Unavailable Unavailabl e Raul Santana MD Unavailable Unavailabl e Danny Blackwell MD Unavailable [phone] Gayle Arce APRN, NP-C Unavailable Reason for Referral * Imaging (Routine) - Closed Specialty Diagnoses / Procedures Referred By Contac t Referred To Contact RADIOLOGY Diagnoses Coronary artery disease involving [place] coronary artery of [place] heart, unspecified whether angina present Chest pain, unspecified type Tachycardia Procedures USE ECHOCARDIOGRAM USE ECHOCARDIOGRAM Gayle Arce APRN, NP-C [address] [facility] [address] [place] [address] Phone: tel: fax: Referral ID Status Reason Start Date Expiration Date Visits Re quested Visits Authorized [id number] Closed 12/23/2020 01/23/2022 1 1 * Imaging (Routine) - Closed Specialty Diagnoses / Procedures Referred By Contac t Referred To Contact RADIOLOGY Diagnoses Coronary artery disease involving [place] coronary artery of [place] heart, unspecified whether angina present Chest pain, unspecified type Tachycardia Difficulty walking Procedures NM PHARM NUC STRESS TEST 1DAY NM PHARM NUC STRESS TEST 1DAY Gayle Arce APRN, NP-C [address] [facility] [address] [place] [address] Phone: tel: fax: Referral ID Status Reason Start Date Expiration Date Visits Re quested Visits Authorized [id number] Closed 12/23/2020 01/23/2022 1 1 Reason for Visit * Reason Comments Follow Up Chest Pain Encounter Details Date Type Department Care Team (Late st Contact Info) Description 12/23/2020 9:30 AM CDT Office Visit [facility] [address] [place] [address] Gayle Arce APRN, NP-C [address] [facility] [address] [place] [address] Follow Up; Chest Pain Social [...] 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 3. Stress test and echocardiogram in [place]. 4. If no abnormalities found, will send [...] a history of coronary artery disease s/p FLAME CUTTER PCI on 03/24/18, atrial fibrillation s/p ablation [...] CATHETERIZATION 01/04/2018 occluded prox RCA w/well developed orot-yo-pniic collaterals lvef 55-60% ??? CARDIAC CATHETERIZATION 11/13/2018 ??? FRACTURE SURGERY ??? 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 HERNIA REPAIR ??? JOINT REPLACEMENT ??? KNEE ARTHROPLASTY Bilateral ??? LITHOTRIPSY ??? XA ABLATION 05/19/2016 ??? XA CORONARY INTERVENTION 03/24/2018 FLAME CUTTER PCI-mid RCA Social History Tobacco Use ??? [...] Comments: Diagnoses/Impression: 1. Coronary artery disease involving h[place] coronary artery of [place] heart, unspecified whether angina present NM PHARM [...] st Contact Info) Description 04/25/2024 11:00 AM ARTIST REPRESENTATIVE Appointment [facility] [address] [place] [address] Ti Bonilla MD [address] [place] [phone] 05/23/2024 3:30 PM ARTIST REPRESENTATIVE Office Visit [facility] [address] [place] [address] Jyoti Escobar MD [address] [place] [address] documented as of this encounter Results * NM PHARM NUC STRESS TEST 1DAY (01/13/2021 10:23 AM CDT) Anatomical Region Laterality Modality Cardiac Nuclear Medicine PELON Umana APRN NUC MED Final Result * USE ECHOCARDIOGRAM (01/12/2021 1:57 PM CDT) Anatomical Region Laterality Modality Cardiac Ultrasound PELON Umana APRN ECHO Final Result documented in this encounter Visit Diagnoses Diagnosis Coronary artery disease involving [place] coronary artery of [place] heart, unspecified whether angina present- Primary Chest pain, unspecified type Difficulty walking Difficulty in walking Tachycardia Tachycardia, unspecified Paroxysmal atrial fibrillation ([facility]) Atrial fibrillation Essential hypertension Unspecified essential hypertension Hyperlipidemia, unspecified hyperlipidemia type documented in this encounter Care Teams Molded Goods Inspector Trimmer Relationship Specialty Start Date End Date Ton Delgado MD [address] [place] [phone] PCP - General FAMILY PRACTICE 10/27/15 12/02/21 Evaristo Allan MD [address] [place] [address] [employer] Counterperson CARDIOVASCULAR DISEASE 08/19/16 Raul Santana MD [address] [place] [phone] CLINICAL CARDIAC ELECTROPHYSIOLOGY 06/16/17 Danny Blackwell MD [address] [place] [address] ORTHOPAEDIC SURGERY 05/01/19 Gayle Arce, SUBGRADE ROLLER OPERATOR, STACKER AND SORTER OPERATOR-C [address] [facility] [address] [place] [address] NURSE PRACTITIONER 03/03/20 documented as of this encounter
--- OUTSIDE RECORDS SUMMARY | 2024-04-23 05:17 | XMS_ITS | Encounter Summary ---
Author Organization [facility] Address [address] [place] [address]. [place], [place] [address] [place] [address] Care Team Providers Care Construction Trades Contractor Name Role Phone Vernon Mercedes MD Primary Care Provider [phone] Evaristo Allan MD Unavailable UnavailRaul Suresh MD Unavailable Unavailabl Danny Lopes MD Unavailable [phone] Gayle Arce APRN, WATCH REPAIRER-C Unavailable Encounter Details Date Type Department [...] COVID-19? No / Unsure 04/30/2021 2:41 PM FORGE SHOP MACHINE REPAIRER documented as of this encounter Functional Status [...] st Contact Info) Description 04/25/2024 11:00 AM FORGE SHOP MACHINE REPAIRER Appointment [facility] [address] [place] [address] Ti Bonilla MD [address] [place] [phone] 05/23/2024 3:30 PM FORGE SHOP MACHINE REPAIRER Office Visit [facility] [address] [place] [phone] Jyoti Escobar MD [address] [place] [address] documented as of this encounter Visit Diagnoses Not on filedocumented in this encounter Additional Health Concerns Infection Onset Date Last Indicated Resolved Time COVID-19 Confirmed 04/16/2021 04/16/2021 12:32 AM FORGE SHOP MACHINE REPAIRER documented as of this encounter Care Teams Construction Trades Contractor Relationship Specialty Start Date End Date Vernon Mercedes MD [address] [place] [phone] PCP - General FAMILY PRACTICE 10/27/15 12/02/21 Evaristo Allan MD [address] [place] [address] [place] Clinical Social Work Aide CARDIOVASCULAR DISEASE 08/19/16 Raul Santana MD [address] [place] [address] CLINICAL CARDIAC ELECTROPHYSIOLOGY 06/16/17 Danny Blackwell MD [address] [place] [address] ORTHOPAEDIC SURGERY 05/01/19 Gayle Arce, BARBARA, WATCH REPAIRER-C [address] [facility] [address] [place] [address] NURSE PRACTITIONER 03/03/20 documented as of this encounter
--- OUTSIDE RECORDS SUMMARY | 2024-04-23 05:17 | XMS_ITS | Encounter Summary ---
Author Organization [facility] Address [address] [place] [address]. [place] [address] [place] [address] Care Team Providers Care Velvet Steamer Name Role Phone Vernon Mercedes MD Primary Care Provider [phone] Evaristo Allan MD Unavailable Unavailabl Raul Duran MD Unavailable Unavailabl Danny Lopes MD Unavailable [phone] Gayle Arce APRN, BOOK REVIEWER-C Unavailable Reason for Visit * Reason Onset Date Comments Appointment Request 12/16/2020 Encounter Details Date Type Department Care Team (Late st Contact Info) Description 12/16/2020 Telephone [facility] [address] [place] [address] Evaristo Allan MD Appointment Request [...] 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 Wants schedule with Mando Arce REFERRAL/PCP: august INS: [facility] APPT PROV/DATE/TIME: 12/23 @ 9:30 PHI TESTING NEEDED/SCHEDULED: no STAFF MSG SENT: no COVID+TEST/EXPOSURE IN LAST 14 DAYS: no RECORDS NEEDED: no MYCHART OFFERED: pending LETTER SENT: yes CARE TEAM: verified * Vee Lazcano - 12/16/2020 9:17 AM CDT [facility] called to schedule PT for [...] Contact Info) Description 04/25/2024 11:00 AM DIGITAL CAMERA TECHNICIAN Appointment [facility] [address] [place] [address] Ti Bonilla MD [address] [place] [phone] 05/23/2024 3:30 PM DIGITAL CAMERA TECHNICIAN Office Visit [facility] [address] [place] [address] Jyoti Escobar MD [address] [place] [address] documented as of this encounter Visit Diagnoses Not on filedocumented in this encounter Care Teams Velvet Steamer Relationship Specialty Start Date End Date Vernon Mercedes MD [address] [place] [address] PCP - General FAMILY PRACTICE 10/27/15 12/02/21 Evaristo Allan MD [facility] [place] [address] [place] Operations Research Director CARDIOVASCULAR DISEASE 08/19/16 Raul Santana MD [facility] [place] [address] CLINICAL CARDIAC ELECTROPHYSIOLOGY 06/16/17 Danny Blackwell MD [address] [place] [address] ORTHOPAEDIC SURGERY 05/01/19 Gayle Arce, NOODLE MAKER, BOOK REVIEWER-C [address] [facility] [address] [place] [address] NURSE PRACTITIONER 03/03/20 documented as of this encounter
--- OUTSIDE RECORDS SUMMARY | 2024-04-23 05:17 | XMS_ITS | Encounter Summary ---
Author Organization [facility] Address [address] [place] [address]. [place], [place] [address] [place] [address] Care Team Providers Care Brush Fabrication Supervisor Name Role Phone Vernon Mercedes MD Primary Care Provider [phone] Evaristo Allan MD Unavailable UnavailRaul Suresh MD Unavailable Unavailabl Danny Lopes MD Unavailable [phone] Encounter Details Date Type Department Care Team (Late st Contact Info) Description 01/11/2020 Orders Only [facility] [address], [address] [address] Danny Blackwell MD [address] [place] [address] Social History Tobacco Use Types Packs/Day [...] st Contact Info) Description 04/25/2024 11:00 AM S[place] HISTORY PROFESSOR Appointment [facility] [address] [place] [address] [place] [address] Ti Bonilla MD [address] [place] [phone] 05/23/2024 3:30 PM SOUTH [place]SI[place] HISTORY PROFESSOR Office Visit [facility] [address] [place] [address] Jyoti Escobar MD [address] [place] [phone] documented as of this encounter Results * [...] knee documented in this encounter Care Teams Brush Fabrication Supervisor Relationship Specialty Start Date End Date [place] [address] PCP - General FAMILY PRACTICE 10/27/15 12/02/21 [place]var[place] [address] [place] Manager Distribution CARDIOVASCULAR DISEASE 08/19/16 Raul Santana MD [address] [place] [address] CLINICAL CARDIAC ELECTROPHYSIOLOGY 06/16/17 Danny Blackwell MD [address] [place], [place] [phone] ORTHOPAEDIC SURGERY 05/01/19 documented as of this encounter
--- OUTSIDE RECORDS SUMMARY | 2024-04-23 05:17 | XMS_ITS | Encounter Summary ---
Author Organization [facility] Address [address] [place] [address]. 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 No / Unsure 02/21/2020 8:45 AM NETWORK TECHNICIAN documented as of this encounter Functional [...] Contact Info) Description 04/25/2024 11:00 AM NETWORK TECHNICIAN Appointment [facility] [address] [place] [address] Ti Bonilla MD [address] [place] [phone] 05/23/2024 3:30 PM NETWORK TECHNICIAN Office Visit [facility] [address] [place] [phone] Jyoti Escobar MD [address] [place] [address]2461 documented as of this encounter Visit Diagnoses Not on filedocumented in this encounter Care Teams Pipeliner Relationship Specialty Start Date End Date Vernon Mercedes MD [address] [place] [phone] PCP - General FAMILY PRACTICE 10/27/15 12/02/21 [place] [address] [place] Bread Dough Mixer CARDIOVASCULAR DISEASE 08/19/16 Raul Santana MD 12[address] [facility] [place] [address] CLINICAL CARDIAC ELECTROPHYSIOLOGY 06/16/17 Danny Blackwell MD 725 [place] [address] ORTHOPAEDIC SURGERY 05/01/19 documented as of this encounter
--- OUTSIDE RECORDS SUMMARY | 2024-04-23 05:17 | XMS_ITS | Encounter Summary ---
Author Organization [facility] Address [address] [place] [address]. 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 No / Unsure 02/24/2021 11:31 AM LEGAL PARAPROFESSIONAL documented as of this encounter Functional [...] Contact Info) Description 04/25/2024 11:00 AM LEGAL PARAPROFESSIONAL Appointment [facility] [address] [place] [address] Ti Bonilla MD [address] [place] [phone] 05/23/2024 3:30 PM LEGAL PARAPROFESSIONAL [facility] [address] [place] [address] Jyoti Escobar MD [address] [place] [address] documented as of this encounter Visit Diagnoses Not on filedocumented in this encounter Care Teams Spouting Installer Relationship Specialty Start Date End Date Vernon Mercedes MD [address] [place] [address] PCP - General FAMILY PRACTICE 10/27/15 12/02/21 Evaristo Allan MD [address] [place] [address] [place] Light Oil Operator CARDIOVASCULAR DISEASE 08/19/16 Raul Santana MD [address] [place] [address] CLINICAL CARDIAC ELECTROPHYSIOLOGY 06/16/17 Danny Blackwell MD [address] [place] [address] ORTHOPAEDIC SURGERY 05/01/19 Gayle Arce, SPEECH COMMUNICATION PROFESSOR, RUBBING BED OPERATOR-C [address] [facility] [address] [place] [phone] NURSE PRACTITIONER 03/03/20 documented as of this encounter
--- OUTSIDE RECORDS SUMMARY | 2024-04-23 05:17 | XMS_ITS | Encounter Summary ---
Author Organization [facility] Address [address] [place] [address]. [place] [address] [place] [address] Care Team Providers Care Flea Market Seller Name Role Phone Vernon Mercedes MD Primary Care Provider [phone] Evaristo Allan MD Unavailable Unavailabl Raul Duran MD Unavailable Unavailabl Danny Lopes MD Unavailable [phone] Gayle Arce APRN, MILLINERY BLOCKER-C Unavailable Encounter Details Date Type Department Care Team (Late st Contact Info) Description 04/25/2020 Transcribe Orders [facility] [address] Pre Access Team [address] [place] [address] Vernon Mercedes MD [address] [facility] [place] [address] Social History Tobacco Use Types [...] 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 Not [...] st Contact Info) Description 04/25/2024 11:00 AM DATA RECOVERY PLANNER Appointment [facility] [address] [place] [address] Ti Bonilla MD [address] [place] [phone] 05/23/2024 3:30 PM DATA RECOVERY PLANNER Office Visit [facility] [address] [place] [address] Jyoti Escobar MD [address] [place] [address] documented as of this encounter Visit Diagnoses Diagnosis Sleep apnea- Primary Unspecified sleep apnea documented in this encounter Care Teams Flea Market Seller Relationship Specialty Start Date End Date Vernon Mercedes MD [address] [place] [address] PCP - General FAMILY PRACTICE 10/27/15 12/02/21 Evaristo Allan MD [address] [place] [address] [facility] Researcher CARDIOVASCULAR DISEASE 08/19/16 Raul Santana MD [address] [place] [address] CLINICAL CARDIAC ELECTROPHYSIOLOGY 06/16/17 Danny Blackwell MD [address] [place] [address] ORTHOPAEDIC SURGERY 05/01/19 Gayle Arce APRN, MILLINERY BLOCKER-C [address] [facility] [address] [place] [address] NURSE PRACTITIONER 03/03/20 documented as of this encounter
--- OUTSIDE RECORDS SUMMARY | 2024-04-23 05:17 | XMS_ITS | Encounter Summary ---
Author Organization [facility] Address [address] [place] [address]. [place], [place] [address] [place] [address] Care Team Providers Care Dry Transfer Man Name Role Phone Ton Mercedes MD Primary Care Provider [phone] Evaristo Allan MD Unavailable UnavailRaul Suresh MD Unavailable Unavailabl Danny Lopes MD Unavailable [phone] Gayle Arce APRN KILN TRANSFER OPERATOR-C Unavailable [phone] Encounter Details Date Type Department Care Team (Late st Contact Info) Description 02/24/2021 11:32 AM SHIPYARD PAINTING SUPERVISOR - 02/24/2021 11:59 PM [facility] Hospital Encounter [facility] [address] [place] [address] Ton Mercedes MD [address] [place] [address] Discharge Disposition: Home or Self [...] COVID-19? No / Unsure 02/24/2021 11:31 AM SHIPYARD PAINTING SUPERVISOR documented as of this encounter Functional Status [...] PEN NEEDLES 31G X [facility] 01[facility]2021 aspirin EC 81 MG tablet [...] st Contact Info) Description 04/25/2024 11:00 AM SHIPYARD PAINTING SUPERVISOR Appointment [facility] [address] [place] [address] Ti Bonilla MD [address] [place] [phone] 05/23/2024 3:30 PM SHIPYARD PAINTING SUPERVISOR Office Visit [facility] [address] [place] [phone] Jyoti Escobar MD 9 [place] [address] documented as of this encounter Procedures Procedure Name Priority Date/Time Associated Diagnosis Comments XR CERV SPINE 3V Routine 02/24/2021 12:0 7 PM SHIPYARD PAINTING SUPERVISOR Neck pain documented in this encounter Results * XR CERV SPINE 3V (02/24/2021 12:07 PM SHIPYARD PAINTING SUPERVISOR) Anatomical Region Laterality Modality Spine Radiographic Shannan ging 02/24/2021 3:32 PM SHIPYARD PAINTING SUPERVISOR Impressions 02/24/2021 3:34 PM SHIPYARD PAINTING SUPERVISOR IMPRESSION: Reversal the normal cervical lordosis. No acute bony abnormality. Referred By: TON MERCEDES Interpreted By: Valeriy Madrid MD, 02/24/2021 3:32 PM Narrative 02/24/2021 3:34 PM SHIPYARD PAINTING SUPERVISOR 02/24/2021, 11:40 AM. HISTORY: Left-sided neck pain [...] Cervicalgia documented in this encounter Care Teams Dry Transfer Man Relationship Specialty Start Date End Date Ton Mercedes MD [address] [place] [phone] PCP - General FAMILY PRACTICE 10/27/15 12/02/21 Evaristo Allan MD [facility] [place] [address] [place] Orthopedic Tech CARDIOVASCULAR DISEASE 08/19/16 Raul Santana MD [facility] [place] [address] CLINICAL CARDIAC ELECTROPHYSIOLOGY 06/16/17 Danny Blackwell MD 5 [place] [address] ORTHOPAEDIC SURGERY 05/01/19 Gayle Arce, BARBARA, KILN TRANSFER OPERATOR-C [address] [facility] [address] [place] [address] NURSE PRACTITIONER 03/03/20 documented as of this encounter
--- OUTSIDE RECORDS SUMMARY | 2024-04-23 05:17 | XMS_ITS | Encounter Summary ---
Author Organization [facility] Address [address] [place] [address]. [place] [address] [place] [address] Care Team Providers Care Universal Branch Consultant Name Role Phone Ton Delgado MD Primary Care Provider [phone] Evaristo Allan MD Unavailable Unavailabl Raul Duran MD Unavailable Unavailabl Danny Lopes MD Unavailable [phone] Gayle Arce APRN, NP-C Unavailable Reason for Referral * (Routine) - Closed Specialty Diagnoses / Procedures Referred By Contac t Referred To Contact Diagnoses Postural dizziness with near syncope Paroxysmal atrial fibrillation ([facility]) Procedures CLINIC - HOLTER MONITOR - ECG UP TO 48 HRS,COMPLETE Gayle Arce APRN, NP-C [address] [facility] [address] [place] [address] Phone: tel: fax: Referral ID Status Reason Start Date Expiration Date Visits Re quested Visits Authorized [id number] Closed 03/06/2020 04/05/2021 1 1 P SALES MANAGER Reason for Visit * Reason Comments Follow Up Lightheadedness Encounter Details Date Type Department Care Team ([facility] st Contact Info) Description 03/06/2020 10:30 AM GROUP SALES MANAGER Office Visit [facility] [address] [place] [address] Gayle Arce, BARBARA, TEST DESK TROUBLE LOCATOR-C [address] [address] Follow Up (Lightheadedness) Social History [...] 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 No / Unsure 03/06/2020 10:30 AM GROUP SALES MANAGER documented as of this encounter Last Filed Vital Signs Vital Sign Reading Time Taken Comments Blood Pressure 124/78 03/06/2020 10:41 AM GROUP SALES MANAGER Pulse 90 03/06/2020 10:41 AM GROUP SALES MANAGER Temperature - - Respiratory Rate 16 03/06/2020 10:41 AM GROUP SALES MANAGER Oxygen Saturation - - Inhaled Oxygen Concentration - - Weight 122 kg (269 lb) 03/06/2020 10:41 AM GROUP SALES MANAGER Height 177.8 cm (5' 10 ) 03/06/2020 10:41 AM GROUP SALES MANAGER Body Mass Index 38.6 03/06/2020 10:41 AM GROUP SALES MANAGER documented in this encounter Functional Status * [...] Arce APRN, NP-C - 03/06/2020 10:30 AM GROUP SALES MANAGER 1. Stop isosorbide. 2. If dizziness continues, cut spironolactone in half to take 12.5 mg daily. 3. Compression stockings. 4. Monitor. P SALES MANAGER documented in this encounter Progress Notes * [...] a history of coronary artery disease s/p APPLICATIONS SUPPORT ANALYST PCI on03/24/18, atrial fibrillation s/p ablation in [...] CATHETERIZATION 01/04/2018 occluded prox RCA w/well developed obly-up-quzfb collaterals lvef 55-60% ??? CARDIAC CATHETERIZATION 11/13/2018 ??? FRACTURE SURGERY ??? 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 HERNIA REPAIR ??? KNEE ARTHROPLASTY Bilateral ??? LITHOTRIPSY ??? XA ABLATION 05/19/2016 ??? XA CORONARY INTERVENTION 03/24/2018 APPLICATIONS SUPPORT ANALYST PCI-mid RCA Social History Tobacco Use ??? [...] hypotension type 3. Coronary artery disease involving creek coronary artery of creek heart without angina pectoris 4. Paroxysmal atrial fibrillation (CMS/HCC) CLINIC - HOLTER MONITOR - ECG UP TO 48 HRS,COMPLETE [place] Documentation Completed: Coronary Artery Disease Referring Provider: Ton Delgado MD PCP: TON DELGADO MD P SALES MANAGER documented in this encounter Plan of Treatment Upcoming Encounters Date Type Department Care Team (Late st Contact Info) Description 04/25/2024 11:00 AM GROUP SALES MANAGER Appointment [facility] [address] [place] [address] Ti Bonilla MD [address] [place] [phone] 05/23/2024 3:30 PM GROUP SALES MANAGER Office Visit [facility] [address] [place] [phone] Jyoti Escobar MD [address] [place] [address] documented as of this encounter Procedures Procedure Name Priority Date/Time Associated Diagnosis Comments XTRNL ECG REC<48 HRS RECORDING SCAN A/R R&I Routine 03/21/2020 7:05 AM GROUP SALES MANAGER Postural dizziness with near syncope Paroxysmal atrial fibrillation ([facility]) documented in this encounter Results * CLINIC - HOLTER MONITOR - ECG UP TO 48 HRS,COMPLETE (03/21/2020 7:05 AM GROUP SALES MANAGER) 03/21/2020 7:05 AM GROUP SALES MANAGER Narrative ESCRIPTION - 03/21/2020 5:32 PM GROUP SALES MANAGER DATE OF ENROLLMENT: ??03/06/2020 DATE OF TERMINATION: [...] Evaristo Allan MD D: ??03/21/2020 07:05 AM #[id number] T: ??03/21/2020 10:16 AM /TC Gayle Arce APRN, TEST DESK TROUBLE LOCATOR-C PROCEDURES Final Result ESCRIPTION documented in this encounter Visit Diagnoses Diagnosis Postural dizziness with near syncope- Primary Hypotension, unspecified hypotension type Coronary artery disease involving creek coronary artery of creek heart without angina pectoris Paroxysmal atrial fibrillation ([facility]) Atrial fibrillation documented in this encounter Care Teams Universal Branch Consultant Relationship Specialty Start Date End Date Ton Delgado MD [address] [place] [address] PCP - General FAMILY PRACTICE 10/27/15 12/02/21 Evaristo Allan MD [address] [place] [address] [place] Employee Training Specialist CARDIOVASCULAR DISEASE 08/19/16 Raul Santana MD [facility] [place] [address] CLINICAL CARDIAC ELECTROPHYSIOLOGY 06/16/17 Danny Blackwell MD 5 [place] [address] ORTHOPAEDIC SURGERY 05/01/19 Gayle Arce APRN, TEST DESK TROUBLE LOCATOR-C [address] [facility] [address] [place] [address] NURSE PRACTITIONER 03/03/20 documented as of this encounter
--- OUTSIDE RECORDS SUMMARY | 2024-04-23 05:17 | XMS_ITS | Encounter Summary ---
Author Organization [facility] Address [address] [place] [address]. [place] [address] [place] [address] Care Team Providers Care Cafeteria Server Name Role Phone Vernon Mercedes MD Primary Care Provider [phone] Evaristo Allan MD Unavailable Unavailabl Raul Duran MD Unavailable Unavailabl Danny Lopes MD Unavailable [phone] Gayle Arce APRN, DIRECTOR OF INSTRUMENTAL MUSIC-C Unavailable Reason for Visit * Reason Onset Date Comments Results 01/15/2021 Encounter Details Date Type Department Care Team ([facility] Contact Info) Description 01/15/2021 Telephone [facility] [address] [place] [address] Gayle Arce APRN, DIRECTOR OF INSTRUMENTAL MUSIC-C [address] [facility] [address] [place] [address] Results Social History Tobacco Use [...] 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 [address] [place] [address] Ti Bonilla MD [address] [place] [phone] 05/23/2024 3:30 PM CONE MACHINE FEEDER Office Visit [facility] [address] [place] [address] Jyoti Escobar MD [address] [place] [address] documented as of this encounter Visit Diagnoses Not on filedocumented in this encounter Care Teams Cafeteria Server Relationship Specialty Start Date End Date Vernon Mercedes MD [facility] [place] [address] PCP - General FAMILY PRACTICE 10/27/15 12/02/21 Evaristo Allan MD [address] [place], [place] [address] [address] [place] Textile Broker CARDIOVASCULAR DISEASE 08/19/16 Raul Santana MD [facility] [place] [address] CLINICAL CARDIAC ELECTROPHYSIOLOGY 06/16/17 Danny Blackwell MD 5 [place] [address] ORTHOPAEDIC SURGERY 05/01/19 Gayle Arce APRN, DIRECTOR OF INSTRUMENTAL MUSIC-C [address] [facility] [address] [place] [address] NURSE PRACTITIONER 03/03/20 documented as of this encounter
--- OUTSIDE RECORDS SUMMARY | 2024-04-23 05:17 | XMS_ITS | Encounter Summary ---
Author Organization [facility] Address [address] [place] [address]. 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 No / Unsure 04/16/2021 12:02 PM BARBERING TEACHER documented as of this encounter Functional [...] st Contact Info) Description 04/25/2024 11:00 AM BARBERING TEACHER Appointment [facility] [address] [place] [address] [place] [address] Ti Bonilla MD [address] [place] [phone] 05/23/2024 3:30 PM BARBERING TEACHER Office Visit [facility] [address] [facility] [place] [address] Jyoti Escobar MD [address] [place] [address] documented as of this encounter Visit Diagnoses Not on filedocumented in this encounter Additional Health Concerns Infection Onset Date Last Indicated Resolved Time COVID-19 Rule Out 04/16/2021 04/16/2021 04/16/2021 12:50 PM BARBERING TEACHER COVID-19 Confirmed 04/16/2021 04/16/2021 12:32 AM BARBERING TEACHER documented as of this encounter Care Teams Graduation Coach Relationship Specialty Start Date End Date Vernon Mercedes MD [address] [place] [phone] PCP - General FAMILY PRACTICE 10/27/15 12/02/21 Evaristo Allan MD [address] [place] [address] [place] Job Service Consultant CARDIOVASCULAR DISEASE 08/19/16 Raul Santana MD [address] [place] [address] CLINICAL CARDIAC ELECTROPHYSIOLOGY 06/16/17 Danny Blackwell MD [address] [place] [address] ORTHOPAEDIC SURGERY 05/01/19 Gayle Arce, HYDROELECTRIC STATION OPERATOR CHIEF, FISH GRADER-C [address] [facility] [address] [place] [address] NURSE PRACTITIONER 03/03/20 documented as of this encounter
--- OUTSIDE RECORDS SUMMARY | 2024-04-23 05:17 | XMS_ITS | Encounter Summary ---
Author Organization [facility] Address [address] [place] [address]. [place], [place] [address] [place] [address] Care Team Providers Care Chemical Research Engineer Name Role Phone Vernon Mercedes MD Primary Care Provider [phone] Evaristo Allan MD Unavailable UnavailRaul Suresh MD Unavailable Unavailabl Danny Lopes MD Unavailable [phone] Encounter Details Date Type Department Care Team (Latest Contact Info) Description 01/16/2020 2:00 PM CDT - 01/16/2020 11:59 PM CDT Hospital Encounter [facility] [address] [place] [address] Danny Blackwell MD [address] [place] [address] Discharge Disposition: Home or Self [...] 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 Not [...] Contact Info) Description 04/25/2024 11:00 AM HIGH SCHOOL COUNSELOR Appointment [facility] [address] [place], [place] [address] [address] Ti Bonilla MD [address] [place] [phone] 05/23/2024 3:30 PM HIGH SCHOOL COUNSELOR Office Visit [facility] [address] [place] [address] Jyoti Escobar MD [address] [place] [address] documented as of this encounter Procedures Procedure [...] knee documented in this encounter Care Teams Chemical Research Engineer Relationship Specialty Start Date End Date Vernon Mercedes MD [address] [place] [address] PCP - General FAMILY PRACTICE 10/27/15 12/02/21 Evaristo Allan MD [address] [place] [address] [place] Gas [employer] Oil Checker CARDIOVASCULAR DISEASE 08/19/16 Raul Santana MD [address] [place] [address] CLINICAL CARDIAC ELECTROPHYSIOLOGY 06/16/17 Danny Blackwell MD [address] [place] [address] ORTHOPAEDIC SURGERY 05/01/19 documented as of this encounter
--- OUTSIDE RECORDS SUMMARY | 2024-04-23 05:17 | XMS_ITS | Encounter Summary ---
Author Organization [facility] Address [address] [place] [address]. 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 [...] Info) Description 04/25/2024 11:00 AM DIGITAL SALES MANAGER Appointment [facility] [address] [place] [address] Ti Bonilla MD [address] [place] [phone] 05/23/2024 3:30 PM DIGITAL SALES MANAGER [facility] [address] [place] [address] Jyoti Escobar MD [address] [place] [address] documented as of this encounter Visit Diagnoses Not on filedocumented in this encounter Care Teams Wool Mixer Relationship Specialty Start Date End Date Vernon Mercedes [place] [address] PCP - General FAMILY PRACTICE 10/27/15 12/02/21 Evaristo Allan MD [address] [place] [address] [place] Anthropologist CARDIOVASCULAR DISEASE 08/19/16 Raul Santana MD [address] [place] [address] CLINICAL CARDIAC ELECTROPHYSIOLOGY 06/16/17 Danny Blackwell MD 725 [place] [address] ORTHOPAEDIC SURGERY 05/01/19 Gayle Arce, CRYPTOGRAPHIC VULNERABILITY ANALYST, DIRECTOR OF RETENTION-C [address] [facility] [address] [place] [phone] NURSE PRACTITIONER 03/03/20 documented as of this encounter
--- OUTSIDE RECORDS SUMMARY | 2024-04-23 05:17 | XMS_ITS | Encounter Summary ---
Author Organization [facility] Address [address] [place] [address]. 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 [...] Contact Info) Description 04/25/2024 11:00 AM DIRECTOR FUNDRAISING Appointment [facility] [address] [place] [address] Ti Bonilla MD [address] [place] [phone] 05/23/2024 3:30 PM DIRECTOR FUNDRAISING [facility] [address] [place] [address] Jyoti Escobar MD [address] [place] [address] documented as of this encounter Visit Diagnoses Not on filedocumented in this encounter Care Teams Co Founder And Chairman Relationship Specialty Start Date End Date Vernon Mercedes [place] [address] PCP - General FAMILY PRACTICE 10/27/15 12/02/21 Evaristo Allan MD [address] [place] [address] [place] Public Improvement Inspector CARDIOVASCULAR DISEASE 08/19/16 Raul Santana MD [address] [place] [address] CLINICAL CARDIAC ELECTROPHYSIOLOGY 06/16/17 Danny Blackwell MD 725 [place] [address] ORTHOPAEDIC SURGERY 05/01/19 Gayle Arce, AIRWORTHINESS SAFETY INSPECTOR, FLESHING MACHINE OPERATOR-C [address] [facility] [address] [place] [phone] NURSE PRACTITIONER 03/03/20 documented as of this encounter
--- OUTSIDE RECORDS SUMMARY | 2024-04-23 05:17 | XMS_ITS | Encounter Summary ---
Author Organization [facility] Address [address] [place] [address]. 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 No / Unsure 03/06/2020 10:30 AM STUDENT CAREER DEVELOPMENT SPECIALIST documented as of this encounter Functional [...] st Contact Info) Description 04/25/2024 11:00 AM STUDENT CAREER DEVELOPMENT SPECIALIST Appointment [facility] [address] [place] [address] Ti Bonilla MD [address] [place] [phone] 05/23/2024 3:30 PM STUDENT CAREER DEVELOPMENT SPECIALIST Office Visit [facility] [address] [place] [address] Jyoti Escobar MD [address] [place] [address] documented as of this encounter Visit Diagnoses Not on filedocumented in this encounter Care Teams Program Therapist Relationship Specialty Start Date End Date Vernon Mercedes MD [address] [place] [address] PCP - General FAMILY PRACTICE 10/27/15 12/02/21 [place] [address] [place] Odd Ticket Clerk CARDIOVASCULAR DISEASE 08/19/16 Raul Santana MD [address] [place] [address] CLINICAL CARDIAC ELECTROPHYSIOLOGY 06/16/17 Danny Blackwell MD 725 [place] [address] ORTHOPAEDIC SURGERY 05/01/19 Gayle Arce, OXYACETYLENE WELDER, COMMERCIAL REAL ESTATE ATTORNEY-C [address] [facility] [address] [place] [address] NURSE PRACTITIONER 03/03/20 documented as of this encounter
--- OUTSIDE RECORDS SUMMARY | 2024-04-23 05:17 | XMS_ITS | Encounter Summary ---
Author Organization [facility] Address [address] [place] [address]. [place] [address] [place] [address] Care Team Providers Care Airplane Technician Name Role Phone Vernon Mercedes MD Primary Care Provider [phone] Evaristo Allan MD Unavailable Unavailabl Raul Duran MD Unavailable Unavailabl Danny Lopes MD Unavailable [phone] Gayle Arce APRN, SMALL ENGINE TRAINER-C Unavailable Reason for Visit * Reason Onset Date Comments Medication Information 01/28/2021 Pradaxa Encounter Details Date Type Department Care Team ([facility] Contact Info) Description 01/28/2021 [facility]phone [facility] [address] [place] [address] Gayle Arce APRN, SMALL ENGINE TRAINER-C [address] [facility] [address] [place] [address] Medication Information (Pradaxa) Social History [...] 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 No / Unsure 02/24/2021 11:31 AM THERAPY ADMINISTRATIVE ASSISTANT documented as of this encounter Functional [...] pradaxa from 03/05/21-03/05/22 Phoned Leo Winchester in [place], message left of above approval notice Phoned patient, message left of above approval for Pradaxa. APY ADMINISTRATIVE ASSISTANT * Nalini Orlando RN - 03/05/2021 11:58 AM CST Phoned states Leo [place] is still needed refaxed PA form that was sent on 02/02 APY ADMINISTRATIVE ASSISTANT * Nalini Orlando RN - 03/05/2021 8:19 AM CST Attempted to phone Walter winchester to check statatus of PA Pharmacy closed, will try back later APY ADMINISTRATIVE ASSISTANT * Alice Russell RN - 03/02/2021 12:27 PM CST Patient called and stated that pharmacy told him that they are still needing a PA for the Pradaxa 150 mg. He only has 2 pills left. Please call him back at [phone]. APY ADMINISTRATIVE ASSISTANT * Nalini Orlando RN - 02/02/2021 10:45 AM CDT PA form completed and faxed to [facility] at [phone] * Nalini Orlando RN - 01/29/2021 3:41 [...] for next year. Pt can bereached at [phone]. He just refilled for 30 days. documented in this encounter Plan of Treatment Upcoming Encounters Date Type Department Care Team (Late st Contact Info) Description 04/25/2024 11:00 AM THERAPY ADMINISTRATIVE ASSISTANT Appointment [facility] [address] [place], [place] [address] Ti Bonilla MD [address] [place] [phone] 05/23/2024 3:30 PM THERAPY ADMINISTRATIVE ASSISTANT Office Visit [facility] [address] [place] [phone] Jyoti Escobar MD [address] [place] [address] documented as of this encounter Visit Diagnoses Not on filedocumented in this encounter Care Teams Airplane Technician Relationship Specialty Start Date End Date Vernon Mercedes MD [facility] [place] [phone] PCP - General FAMILY PRACTICE 10/27/15 12/02/21 [place] [id number] [place] Supervisor [employer] House CARDIOVASCULAR DISEASE 08/19/16 Raul Santana MD [address] [place] [address] CLINICAL CARDIAC ELECTROPHYSIOLOGY 06/16/17 Danny Blackwell MD [address] [place], [place] [address] ORTHOPAEDIC SURGERY 05/01/19 Gayle Arce APRN, SMALL ENGINE TRAINER-C [address] [facility] [address] [place] [address] NURSE PRACTITIONER 03/03/20 documented as of this encounter
--- OUTSIDE RECORDS SUMMARY | 2024-04-23 05:17 | XMS_ITS | Encounter Summary ---
Author Organization [facility] Address [address] [place] [address]. [place], [place] [address] [place] [address] Care Team Providers Care Canine Enforcement Officer Name Role Phone Vernon Mercedes MD Primary Care Provider [phone] Evaristo Allan MD Unavailable Unavailabl Raul Duran MD Unavailable Unavailabl Danny Lopes MD Unavailable [phone] Gayle Arce APRN PHYSICIAN'S AIDE-C Unavailable [phone] Reason for Referral * Sleep Lab (Routine) - Closed Specialty Diagnoses / Procedures Referred By Conttianna t Referred To Contact [facility] Sleep Disorders Diagnoses Sleep apnea Procedures PSG with CPAP/BIPAP (60003) Vernon Mercedes MD [address] [place] [address] Phone: tel: fax: [facility] [address] [place] [address] Phone: tel: Referral ID Status Reason Start Date Expiration Date Visits Re quested Visits Authorized [id number] Closed 07/03/2020 10/01/2020 1 1 Reason for Visit * Sleep Lab (Routine) - Closed Specialty Diagnoses / Procedures Referred By Conttianna ledbetter Referred To Contact [facility] Sleep Disorders Diagnoses Sleep apnea Procedures PSG with CPAP/BIPAP (53669) Vernon Mercedes MD [address] [place] [address] Phone: tel: fax: [facility] [address] [place] [address] Phone: tel: Referral ID Status Reason Start Date Expiration Date Visits Re quested Visits Authorized [id number] Closed 07/03/2020 10/01/2020 1 1 Encounter Details Date Type Department Care Team (Late st Contact Info) Description 07/29/2020 8:30 PM CDT - 07/29/2020 11:59 PM CDT Hospital Encounter [facility] [address] [place] [address] Vernon Mercedes MD [address] [place] [address] Discharge Disposition: Home or Self [...] st Contact Info) Description 04/25/2024 11:00 AM INTEGRITY ASSESSOR Appointment [facility] [address] [place] [address] [place] [address] Ti Bonilla MD [address] [place] [phone] 05/23/2024 3:30 PM INTEGRITY ASSESSOR Office Visit [facility] [place] [address] Jyoti Escobar MD [address] [place] [address] documented as of this encounter Procedures Procedure Name Priority Date/Time Associated Diagnosis Comments POLYSOMNOGRAPHY 4 OR MORE PARAMETERS WITH CPAP Routine 07/30/2020 4:02 PM CDT Sleep apnea documented in this encounter Results * PSG with CPAP/BIPAP (68949) (07/30/2020 4:02 PM CDT) 07/30/2020 4:02 PM CDT Narrative ESCRIPTION - 07/30/2020 5:35 PM CDT SLEEP STUDY PLUS CPAP TITRATION ORDERED BY: ??Vernon Mercedes MD. INDICATION: ??To assess for sleep apnea. ??Patient with snoring and daytime sleepiness. A 60-year-old male, body weight 271 pounds, height of 5 feet 10 inches, BMI of 39, had symptoms of sleep apnea with snoring, daytime sleepiness, [place] sleepiness scale (ESS) of 17/24. METHOD USED: [...] on a CPAP utilizing a Page and [employer] Vitera full face mask, medium size. ??Pressure [...] mask, medium size. ??Close followup including downloads, rzbf-ah-livu evaluation. 2. ??Patient will need further detailed [...] is required. Elina Siegel MD FCCP Diplomate, [place] Board of sleep Medicine D: ??07/30/2020 04:02 PM #[id number] T: ??07/30/2020 04:33 PM /NTS Procedure Note Des Siegel MD - 07/30/2020 SLEEP STUDY PLUS CPAP TITRATION ORDERED BY: Vernon Mercedes MD. INDICATION: To assess for sleep apnea. Patient with snoring and daytimesleepiness. A 60-year-old male, body weight 271 pounds, height of 5 feet 10 inches,BMI of 39, had symptoms of sleep apnea with snoring, daytime sleepiness,[place] sleepiness scale (ESS) of 17/24. METHOD USED: [...] face mask, medium size. Close followup including downloads,resv-pa-rfya evaluation. 2. Patient will need further detailed [...] is required. Elina Siegel MD FCCP Diplomate, [place] Board of sleep Medicine #[id number] /NTS us Vernon Mercedes MD SLEEP CENTER ORDERABLES Final Result ESCRIPTION documented in this encounter Visit Diagnoses Diagnosis Sleep apnea Unspecified sleep apnea documented in this encounter Care Teams Canine Enforcement Officer Relationship Specialty Start Date End Date Vernon Mercedes MD [address] [facility] [place] [address] PCP - General FAMILY PRACTICE 10/27/15 12/02/21 Evaristo Allan MD [address] [place] [address] [place] Building Rental Superintendent CARDIOVASCULAR DISEASE 08/19/16 Raul Santana MD [address] [place] [address] CLINICAL CARDIAC ELECTROPHYSIOLOGY 06/16/17 Danny Blackwell MD [address] [place] [address] ORTHOPAEDIC SURGERY 05/01/19 Gayle Arce, HAND PASTER, PHYSICIAN'S AIDE-C [address] [facility] [address] [place] [address] NURSE PRACTITIONER 03/03/20 documented as of this encounter
--- OUTSIDE RECORDS SUMMARY | 2024-04-23 05:17 | XMS_ITS | Encounter Summary ---
Author Organization [facility] Address [address] [place] [address]. [place] [address] [place] [address] Care Team Providers Care Office Automation Clerk Name Role Phone Vernon Mercedes MD Primary Care Provider [phone] Evaristo Allan MD Unavailable Unavailabl Raul Duran MD Unavailable Unavailabl Danny Lopes MD Unavailable [phone] Gayle Arce APRN, CATH LAB TECHNOLOGIST-C Unavailable Reason for Visit * Reason Onset Date Comments Appointment Request 11/13/2020 Encounter Details Date Type Department Care Team (Late st Contact Info) Description 11/13/2020 Telephone [facility] [address] [place] [address] Evaristo Allan MD Appointment Request [...] in somewhere earlier? His callback number is [phone]. documented in this encounter Plan of Treatment Upcoming Encounters Date Type Department Care Team (Late st Contact Info) Description 04/25/2024 11:00 AM SPANISH INSTRUCTOR Appointment [facility] [address] [place] [address] Ti Bonilla MD [address] [place] [address] 05/23/2024 3:30 PM SPANISH INSTRUCTOR Office Visit [facility] [address] [place] [address] Jyoti Escobar MD [address] [place] [address] documented as of this encounter Visit Diagnoses Not on filedocumented in this encounter Care Teams Office Automation Clerk Relationship Specialty Start Date End Date Vernon Mercedes MD [address] [place] [address] PCP - General FAMILY PRACTICE 10/27/15 12/02/21 Evaristo Allan MD [facility] [place] [address] [place] Dictating Machine Transcriber CARDIOVASCULAR DISEASE 08/19/16 Raul Santana MD [facility] [place] [address] CLINICAL CARDIAC ELECTROPHYSIOLOGY 06/16/17 Danny Blackwell MD [address] [place] [address] ORTHOPAEDIC SURGERY 05/01/19 Gayle Arce APRN, CATH LAB TECHNOLOGIST-C [address] [facility] [address] [place] [address] NURSE PRACTITIONER 03/03/20 documented as of this encounter
--- OUTSIDE RECORDS SUMMARY | 2024-04-23 05:17 | XMS_ITS | Encounter Summary ---
Author Organization [facility] Address [address] [place] [address]. 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 documented in this encounter Care Teams Food Equipment Service Technician Relationship Specialty Start Date End Date Vernon Mercedes MD [facility] [place] [address] PCP - General FAMILY PRACTICE 10/27/15 12/02/21 [place] [address] [place] Gis Analyst CARDIOVASCULAR DISEASE 08/19/16 Raul Santana MD [address] [place] [address] CLINICAL CARDIAC ELECTROPHYSIOLOGY 06/16/17 Danny Blackwell MD [address] [place] [address] ORTHOPAEDIC SURGERY 05/01/19 Gayle Arce, ADVANCED RESEARCH PROGRAMS DIRECTOR, ACCOUNTANT MANAGER-C [address] [facility] [address] [place] [address] NURSE PRACTITIONER 03/03/20 documented as of this encounter
--- OUTSIDE RECORDS SUMMARY | 2024-04-23 05:17 | XMS_ITS | Encounter Summary ---
Author Organization [facility] Address [address] [place] [address]. [place], [place] [address] [place] [address] Care Team Providers Care Gill Tender Name Role Phone Vernon Mercedes MD Primary Care Provider [phone] Evaristo Allan MD Unavailable Unavailabl e Raul Santana MD Unavailable Unavailabl e Danny Blackwell MD Unavailable [phone] Gayle Arce APRN, NP-C Unavailable [phone] Reason for Referral * Imaging (Routine) - Closed Specialty Diagnoses / Procedures Referred By Contac t Referred To Contact RADIOLOGY Diagnoses Coronary artery disease involving peoria coronary artery of pe[place] heart, unspecified whether angina present Chest pain, unspecified type Tachycardia Difficulty walking Procedures NM PHARM NUC STRESS TEST 1DAY NM PHARM NUC STRESS TEST 1DAY Gayle Arce APRN, NP-C [address] [facility] [address] [place] [address] Phone: tel: fax: Referral ID Status Reason Start Date Expiration Date Visits Re quested Visits Authorized [id number] Closed 12/23/2020 01/23/2022 1 1 Reason for Visit * Imaging (Routine) - Closed Specialty Diagnoses / Procedures Referred By Contac t Referred To Contact RADIOLOGY Diagnoses Coronary artery disease involving peoria coronary artery of peoria heart, unspecified whether angina present Chest pain, unspecified type Tachycardia Difficulty walking Procedures NM PHARM NUC STRESS TEST 1DAY NM PHARM NUC STRESS TEST 1DAY Gayle Arce APRN, WATERPROOF MATERIAL FOLDER-C [address] [facility] [address] [place] [address] Phone: tel: fax: Referral ID Status Reason Start Date Expiration Date Visits Re quested Visits Authorized [id number] Closed 12/23/2020 01/23/2022 1 1 Encounter Details Date Type Department Care Team (Latest Contact Info) Description 01/13/2021 6:58 AM CDT - 01/13/2021 7:54 AM CDT Hospital Encounter [facility] [address] [place] [address] [place] [address] Gayle Arce APRN, WATERPROOF MATERIAL FOLDER-C [address] [place] [id number] [place] [address] Discharge Disposition: Home or Self [...] 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 [...] st Contact Info) Description 04/25/2024 11:00 AM DENTAL EQUIPMENT INSTALLER AND SERVICER Appointment [facility] [address] [place] [address] [place] [address] Ti Bonilla MD [address] [place] [phone] 05/23/2024 3:30 PM DENTAL EQUIPMENT INSTALLER AND SERVICER Office Visit [facility] [address] [place] [address] [place] [address] Jyoti Escobar MD [address] [place] [address] documented as of this encounter Procedures Procedure Name Priority Date/Time Associated Diagnosis Comments NM PHARM NUC STRESS TEST 1DAY W TRACING Routine 01/13/2021 10:23 AM CDT Coronary artery disease involving peoria coronary artery of pe[place] heart, unspecified whether angina present Chest pain, unspecified type Tachycardia Difficulty walking documented in this encounter Results * NM PHARM NUC STRESS TEST 1DAY (01/13/2021 10:23 AM CDT) Anatomical Region Laterality Modality Cardiac Nuclear Medicine Gayle Arce APRN, WATERPROOF MATERIAL FOLDER-C NUC MED Final Result documented in this encounter Visit Diagnoses Diagnosis Coronary artery disease involving peoria coronary artery of pe[place] heart, unspecified whether angina present Chest pain, unspecified type Tachycardia Tachycardia, unspecified Difficulty walking Difficulty in walking documented in this encounter Care Teams Gill Tender Relationship Specialty Start Date End Date Vernon Mercedes MD [address] [place] [phone] PCP - General FAMILY PRACTICE 10/27/15 12/02/21 Evaristo Allan MD [facility] [place] [address] [place] Catalyst Operator CARDIOVASCULAR DISEASE 08/19/16 Raul Santana MD [facility] [place] [address] CLINICAL CARDIAC ELECTROPHYSIOLOGY 06/16/17 Danny Blackwell MD [address] [place] [address] ORTHOPAEDIC SURGERY 05/01/19 Gayle Arce APRN, WATERPROOF MATERIAL FOLDER-C [address] [facility] [address] [place] [address] NURSE PRACTITIONER 03/03/20 documented as of this encounter
--- OUTSIDE RECORDS SUMMARY | 2024-04-23 05:17 | XMS_ITS | Encounter Summary ---
Author Organization [facility] Address [address] [place] [address]. [place] [address] [place] [address] Care Team Providers Care Safety Grooving Machine Operator Name Role Phone Vernon Mercedes MD Primary Care Provider [phone] Evaristo Allan MD Unavailable Unavailabl Raul Duran MD Unavailable Unavailabl Danny Lopes MD Unavailable [phone] Reason for Visit * Reason Onset Date Comments Other 01/21/2020 Pradaxa Encounter Details Date Type Department Care Team (Late st Contact Info) Description 01/21/2020 [facility]phone [facility] [address] [place] [address] Evaristo Allan MD Other (Pradaxa) [...] 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 [address] [place] [address] Ti Bonilla MD [address] [place] [address] 05/23/2024 3:30 PM FARM SUPERVISOR Office Visit [facility] [address] [place] [address] Jyoti Escobar MD [address] [place] [phone] documented as of this encounter Visit Diagnoses Not on filedocumented in this encounter Care Teams Safety Grooving Machine Operator Relationship Specialty Start Date End Date Vernon Mercedes MD [address] [place] [phone] PCP - General FAMILY PRACTICE 10/27/15 12/02/21 Evaristo Allan MD [address] [place] [address] Magazine Group Controller CARDIOVASCULAR DISEASE 08/19/16 Raul Santana MD [address] [place] [address] CLINICAL CARDIAC ELECTROPHYSIOLOGY 06/16/17 Danny Blackwell MD [address] [place] [address] ORTHOPAEDIC SURGERY 05/01/19 documented as of this encounter
--- OUTSIDE RECORDS SUMMARY | 2024-04-23 05:17 | XMS_ITS | Encounter Summary ---
Author Organization [facility] Address [address] [place] [address]. [place] [address] [place] [address] Care Team Providers Care Slitter Cut Off Operator Name Role Phone Vernon Mercedes MD Primary Care Provider [phone] Evaristo Allan MD Unavailable Unavailabl Raul Duran MD Unavailable Unavailabl Danny Lopes MD Unavailable [phone] Gayle Arce APRN, BOAT DIESEL MOTOR MECHANIC-C Unavailable [phone] Reason for Visit * Reason Onset Date Comments Blood Pressure 02/29/2020 Encounter Details Date Type Department Care Team ([facility] Contact Info) Description 02/29/2020 Telephone [facility] [address] [place] [address] Gayle Arce APRN, BOAT DIESEL MOTOR MECHANIC-C [address] [facility] [address] [place] [address] Blood Pressure Social History Tobacco [...] 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 No / Unsure 02/21/2020 8:45 AM MOLDER FEEDER documented as of this encounter Functional Status [...] Attempted to reach pt again. LMTC back. ER FEEDER * Angela Clay RN - 02/29/2020 11:27 AM CST Returned pt's call to discuss. Has pt developed issues with chest pain since decreasing Imdur? If not, can d/c Imdur and call with BP update in 1 week. LMTC back. ER FEEDER ER FEEDER * Ronel Pierre - 02/29/2020 8:50 AM CST TELE-NURSE VOICEMAIL Retrieved voicemail message dated 02/28/2020 at 2:12 pm. Patient contacted office re: blood pressure that keeps getting lower. It is running 90/50. Please return call to [phone]. ER FEEDER documented in this encounter Plan of Treatment Upcoming Encounters Date Type Department Care Team (Late st Contact Info) Description 04/25/2024 11:00 AM MOLDER FEEDER Appointment [facility] [address] [place] [address] Ti Bonilla MD [address] [place] [address] 05/23/2024 3:30 PM MOLDER FEEDER Office Visit [facility] [address] [place] [address] Jyoti Escobar MD [address] [place] [phone] documented as of this encounter Visit Diagnoses Not on filedocumented in this encounter Care Teams Slitter Cut Off Operator Relationship Specialty Start Date End Date Vernon Mercedes MD [address] [place] [phone] PCP - General FAMILY PRACTICE 10/27/15 12/02/21 Evaristo Allan MD [address] [place] [address] [place] Routeman CARDIOVASCULAR DISEASE 08/19/16 Raul Santana MD [address] [place] [address] CLINICAL CARDIAC ELECTROPHYSIOLOGY 06/16/17 Danny Blackwell MD 5 [place] [address] ORTHOPAEDIC SURGERY 05/01/19 Gayle Arce, BARBARA, BOAT DIESEL MOTOR MECHANIC-C [address] [phone] NURSE PRACTITIONER 03/03/20 documented as of this encounter
--- OUTSIDE RECORDS SUMMARY | 2024-04-23 05:17 | XMS_ITS | Encounter Summary ---
Author Organization [facility] Address [address] [place] [address]. [place], [place] [address] [place] [address] Care Team Providers Care Plastic Sheets Finishing Supervisor Name Role Phone Vernon Mercedes MD Primary Care Provider [phone] Evaristo Allan MD Unavailable Unavailabl Raul Duran MD Unavailable Unavailabl Danny Lopes MD Unavailable [phone] Gayle Arce APRN CAREER PORTALS TEACHER-C Unavailable Encounter Details Date Type Department Care Team (Late st Contact Info) Description 04/16/2021 Orders Only [facility] [address] [place] [address] Vernon Mercedes MD [address] [place] [address] Social History Tobacco Use Types [...] 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 No / Unsure 04/16/2021 12:02 PM FINANCIAL SALES CONSULTANT documented as of this encounter Functional Status [...] st Contact Info) Description 04/25/2024 11:00 AM FINANCIAL SALES CONSULTANT Appointment [facility] [address] [place] [address] Ti Bonilla MD [address] [place] [phone] 05/23/2024 3:30 PM FINANCIAL SALES CONSULTANT Office Visit [facility] [address] [place] [address] Jyoti Escobar MD [address] [place] [address] documented as of this encounter Results * (ABNORMAL) CORONAVIRUS (COVID-19) ANTIGEN DIRECT OPTICAL (04/16/2021 12:21 PM FINANCIAL SALES CONSULTANT) CORONAVIRUS ANTIGEN IA POSITIVE(AA ) NEGATIVE 04/16/2021 12:50 PM FINANCIAL SALES CONSULTANT [facility] Comment: CALLED TO SIRISHA AT 1246 READ BACK AND VERIFIED CRITICAL VALUE THIS TEST HAS BEEN AUTHORIZED BY THE FDA UNDER AN EMERGENCY USE AUTHORIZATION (EUA) FOR USE BY AUTHORIZED LABORATORIES. SPECIMEN TYPE NASAL 04/16/2021 12:33 PM FINANCIAL SALES CONSULTANT [facility] FIRST TEST NO 04/16/2021 12:33 PM FINANCIAL SALES CONSULTANT [facility] EMPLOYED IN HEALTHCARE YES 04/16/2021 12:33 PM FINANCIAL SALES CONSULTANT [facility] SYMPTOMATIC DEFINED BY CDC YES 04/16/2021 12:33 PM FINANCIAL SALES CONSULTANT [facility] DATE OF SYMPTOM ONSET 2021040904/16/2021 12:33 PM FINANCIAL SALES CONSULTANT [facility] HOSPITALIZATION STATUS NO 04/16/2021 12:33 PM FINANCIAL SALES CONSULTANT [facility] PATIENT IN ICU NO 04/16/2021 12:33 PM FINANCIAL SALES CONSULTANT [facility] RESIDENT OF [facility] YES 04/16/2021 12:33 PM FINANCIAL SALES CONSULTANT [facility] Specimen from nose (specimen) NASAL STRUCTURE / Unknown 04/16/2021 12:21 PM FINANCIAL SALES CONSULTANT Vernon Mercedes MD MICROBIOLOGY - GENERAL ORDERA BLES Final Result [facility] [address] [place] [address], documented in this encounter Visit Diagnoses Diagnosis Sinusitis- Primary Unspecified sinusitis (chronic) documented in this encounter Additional Health Concerns Infection Onset Date Last Indicated Resolved Time COVID-19 Rule Out 04/16/2021 04/16/2021 04/16/2021 12:50 PM FINANCIAL SALES CONSULTANT COVID-19 Confirmed 04/16/2021 04/16/2021 12:32 AM FINANCIAL SALES CONSULTANT documented as of this encounter Care Teams Plastic Sheets Finishing Supervisor Relationship Specialty Start Date End Date Vernon Mercedes MD [address] [facility] [place] [address] PCP - General FAMILY PRACTICE 10/27/15 12/02/21 Evaristo Allan MD [address] [facility] [place] [address] [place] Media Technician CARDIOVASCULAR DISEASE 08/19/16 Raul Santana MD [address] [place] [address] CLINICAL CARDIAC ELECTROPHYSIOLOGY 06/16/17 Danny Blackwell MD 5 [place] [address] ORTHOPAEDIC SURGERY 05/01/19 Gayle Arce, LOOP TENDER, CAREER PORTALS TEACHER-C [address] [facility] [address] [place] [address] NURSE PRACTITIONER 03/03/20 documented as of this encounter
--- OUTSIDE RECORDS SUMMARY | 2024-04-23 05:17 | XMS_ITS | Encounter Summary ---
Author Organization [facility] Address [address] [place] [address]. [place], [place] [address] [place] [address] Care Team Providers Care Line Maintainer Name Role Phone Vernon Mercedes MD Primary Care Provider [phone] Evaristo Allan MD Unavailable Unavailabl e Raul Santana MD Unavailable Unavailabl e Danny Blackwell MD Unavailable [phone] Gayle Arce APRN, NP-C Unavailable Reason for Referral * Imaging (Routine) - Closed Specialty Diagnoses / Procedures Referred By Contac t Referred To Contact RADIOLOGY Diagnoses Coronary artery disease involving jamul coronary artery of jamul heart, unspecified whether angina present Chest pain, unspecified type Tachycardia Procedures USE ECHOCARDIOGRAM USE ECHOCARDIOGRAM Gayle Arce APRN, NP-C [address] [facility] [address] [place] [address] Phone: tel: fax: Referral ID Status Reason Start Date Expiration Date Visits Re quested Visits Authorized [id number] Closed 12/23/2020 01/23/2022 1 1 Reason for Visit * Imaging (Routine) - Closed Specialty Diagnoses / Procedures Referred By Contac t Referred To Contact RADIOLOGY Diagnoses Coronary artery disease involving jamul coronary artery of jamul heart, unspecified whether angina present Chest pain, unspecified type Tachycardia Procedures USE ECHOCARDIOGRAM USE ECHOCARDIOGRAM Gayle Arce APRN, NP-C [address] [facility] [address] [place] [address] Phone: tel: fax: Referral ID Status Reason Start Date Expiration Date Visits Re quested Visits Authorized [id number] Closed 12/23/2020 01/23/2022 1 1 Encounter Details Date Type Department Care Team (Latest Contact Info) Description 01/12/2021 12:42 PM CDT - 01/12/2021 11:59 PM CDT Hospital Encounter 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 [...] Contact Info) Description 04/25/2024 11:00 AM WEB MARKETING SPECIALIST Appointment [facility] [address] [place] [address] [place] [address] Ti Bonilla MD [address] [place] [phone] 05/23/2024 3:30 PM WEB MARKETING SPECIALIST Office Visit [facility] [address] [place] [address] [place] [address] Jyoti Escobar MD [address] [place] [phone] documented as of this encounter Procedures Procedure Name Priority Date/Time Associated Diagnosis Comments USE ECHOCARDIOGRAM Routine 01/12/2021 1:57 PM CDT Coronary artery disease involving jamul coronary artery of jamul heart, unspecified whether angina present Chest pain, unspecified type Tachycardia documented in this encounter Results * USE ECHOCARDIOGRAM (01/12/2021 1:57 PM CDT) Anatomical Region Laterality Modality Cardiac Ultrasound us SABINO Umana APRNC ECHO Final Result documented in this encounter Visit Diagnoses Diagnosis Coronary artery disease involving jamul coronary artery of jamul heart, unspecified whether angina present Chest pain, unspecified type Tachycardia Tachycardia, unspecified documented in this encounter Care Teams Line Maintainer Relationship Specialty Start Date End Date Vernon Mercedes MD [address] [place] [address] PCP - General FAMILY PRACTICE 10/27/15 12/02/21 Evaristo Allan MD [facility] [place] [address] [place] Gear Lapper CARDIOVASCULAR DISEASE 08/19/16 Raul Santana MD [facility] [place] [address] CLINICAL CARDIAC ELECTROPHYSIOLOGY 06/16/17 Danny Blackwell MD 5 [place] [address] ORTHOPAEDIC SURGERY 05/01/19 Gayle Arce, TUBE INSPECTOR, PCTS-C [address] [facility] [address] [place] [address] NURSE PRACTITIONER 03/03/20 documented as of this encounter
--- OUTSIDE RECORDS SUMMARY | 2024-04-23 05:17 | XMS_ITS | Encounter Summary ---
Author Organization [facility] Address [address] [place] [address]. [place] [address] [place] [address] Care Team Providers Care Metalworking Specialist Name Role Phone Ton Delgado MD Primary Care Provider [phone] Evaristo Allan MD Unavailable Unavailabl Raul Duran MD Unavailable Unavailabl Danny Lopes MD Unavailable [phone] Reason for Visit * Reason Comments Follow Up Dizziness Encounter Details Date Type Department Care Team (Late st Contact Info) Description 02/21/2020 9:00 AM TRUCK SHOP MECHANIC Office Visit [facility] [address] [place] [address] Gayle Arce, BARBARA, MATRIX BATH ATTENDANT-C [address] 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 No / Unsure 02/21/2020 8:45 AM TRUCK SHOP MECHANIC documented as of this encounter Last Filed Vital Signs Vital Sign Reading Time Taken Comments Blood Pressure 104/78 02/21/2020 9:01 AM TRUCK SHOP MECHANIC Pulse 100 02/21/2020 9:01 AM TRUCK SHOP MECHANIC EKG Temperature - - Respiratory Rate 16 02/21/2020 9:01 AM TRUCK SHOP MECHANIC Oxygen Saturation - - Inhaled Oxygen Concentration - - Weight 122.1 kg (269 lb 3.2 oz) 02/21/2020 9:01 AM TRUCK SHOP MECHANIC Height 177.8 cm (5' 10 ) 02/21/2020 9:01 AM TRUCK SHOP MECHANIC Body Mass Index 38.63 02/21/2020 9:01 AM TRUCK SHOP MECHANIC documented in this encounter Functional Status * [...] Instructions * Patient Instructions* Gayle Arce APRN, MATRIX BATH ATTENDANT-C - 02/21/2020 9:00 AM TRUCK SHOP MECHANIC 1. Decrease isosorbide to half a pill. [...] 20-30 mmHg if you can find them. K SHOP MECHANIC documented in this encounter Progress Notes * [...] a history of coronary artery disease s/p MECHANICAL EXPERT PCI on 03/24/18, atrial fibrillation s/p ablation [...] CATHETERIZATION 01/04/2018 occluded prox RCA w/well developed [id number] collaterals lvef 55-60% ??? CARDIAC CATHETERIZATION 11/13/2018 ??? FRACTURE SURGERY ??? 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 HERNIA REPAIR ??? KNEE ARTHROPLASTY Bilateral ??? LITHOTRIPSY ??? XA ABLATION 05/19/2016 ??? XA CORONARY INTERVENTION 03/24/2018 MECHANICAL EXPERT PCI-mid RCA Social History Tobacco Use ??? [...] fibrillation (CMS/HCC) 5. Coronary artery disease involving [place] coronary artery of [place] heart without angina pectoris [place] Documentation Completed: Atrial Fibrillation Coronary Artery Disease Referring Provider: No ref. provider found PCP: TON DELGADO MD K SHOP MECHANIC documented in this encounter Plan of Treatment Upcoming Encounters Date Type Department Care Team (Late st Contact Info) Description 04/25/2024 11:00 AM TRUCK SHOP MECHANIC Appointment [facility] [address] [place] [address] Ti Bonilla MD [address] [place] [phone] 05/23/2024 3:30 PM TRUCK SHOP MECHANIC Office Visit [facility] [address] [place] [phone] Jyoti Escobar MD [address] [place] [phone] documented as of this encounter Visit Diagnoses Diagnosis Lightheadedness- Primary Dizziness and giddiness Edema, unspecified type Hypotension, unspecified hypotension type Paroxysmal atrial fibrillation (CMS/HCC HHS/HCC) Atrial fibrillation Coronary artery disease involving [place] coronary artery of [place] heart without angina pectoris documented in this encounter Care Teams Metalworking Specialist Relationship Specialty Start Date End Date Ton Delgado MD [address] [place] [phone] PCP - General FAMILY PRACTICE 10/27/15 12/02/21 Evaristo Allan MD [address] [place] [address] [place] Order Tracer CARDIOVASCULAR DISEASE 08/19/16 Raul Santana MD [address] [place] [address] CLINICAL CARDIAC ELECTROPHYSIOLOGY 06/16/17 Danny Blackwell MD [address] [place] [address] ORTHOPAEDIC SURGERY 05/01/19 documented as of this encounter
--- OUTSIDE RECORDS SUMMARY | 2024-04-23 05:17 | XMS_ITS | Encounter Summary ---
Author Organization [facility] Address [address] [place] [address]. [place], [place] [address] [place] [address] Care Team Providers Care Aeronautical Engineer Name Role Phone Vernon Mercedes MD Primary Care Provider [phone] Evaristo Allan MD Unavailable Unavailabl Raul Duran MD Unavailable Unavailabl Danny Lopes MD Unavailable [phone] Gayle Arce APRN WIRE PHOTO OPERATOR NEWS-C Unavailable Encounter Details Date Type Department Care Team (Late st Contact Info) Description 04/16/2021 12:03 PM POST GRADUATE INTERNSHIP - 04/16/2021 11:59 PM [facility] Hospital Encounter [facility] [address] [place] [address] Vernon Mercedes MD [address] [place] [address] Discharge Disposition: Home or Self [...] 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 No / Unsure 04/16/2021 12:02 PM POST GRADUATE INTERNSHIP documented as of this encounter Functional Status [...] 31G X 8 MM [facility] 01[facility]2021 aspirin EC 81 MG tablet Take [...] st Contact Info) Description 04/25/2024 11:00 AM POST GRADUATE INTERNSHIP Appointment [facility] [address] [place] [address] Ti Bonilla MD [address] [place] [address] 05/23/2024 3:30 PM POST GRADUATE INTERNSHIP Office Visit [facility] [address] [place] [phone] Jyoti Escobar MD [address] [place] [address] documented as of this encounter Procedures Procedure Name Priority Date/Time Associated Diagnosis Comments CORONAVIRUS (COVID-19) ANTIGEN DIRECT OPTICAL Routine 04/16/2021 12:21 PM POST GRADUATE INTERNSHIP Sinusitis documented in this encounter Results * (ABNORMAL) CORONAVIRUS (COVID-19) ANTIGEN DIRECT OPTICAL (04/16/2021 12:21 PM POST GRADUATE INTERNSHIP) CORONAVIRUS ANTIGEN IA POSITIVE(AA ) NEGATIVE 04/16/2021 12:50 PM POST GRADUATE INTERNSHIP [facility] Comment: CALLED TO SIRISHA AT 1246 READ BACK AND VERIFIED CRITICAL VALUE THIS TEST HAS BEEN AUTHORIZED BY THE FDA UNDER AN EMERGENCY USE AUTHORIZATION (EUA) FOR USE BY AUTHORIZED LABORATORIES. SPECIMEN TYPE NASAL 04/16/2021 12:33 PM POST GRADUATE INTERNSHIP [facility] FIRST TEST NO 04/16/2021 12:33 PM POST GRADUATE INTERNSHIP [facility] EMPLOYED IN HEALTHCARE YES 04/16/2021 12:33 PM POST GRADUATE INTERNSHIP [facility] SYMPTOMATIC DEFINED BY CDC YES 04/16/2021 12:33 PM POST GRADUATE INTERNSHIP [facility] DATE OF SYMPTOM ONSET 2021040904/16/2021 12:33 PM POST GRADUATE INTERNSHIP [facility] HOSPITALIZATION STATUS NO 04/16/2021 12:33 PM POST GRADUATE INTERNSHIP [facility] PATIENT IN ICU NO 04/16/2021 12:33 PM POST GRADUATE INTERNSHIP [facility] RESIDENT OF [facility] YES 04/16/2021 12:33 PM POST GRADUATE INTERNSHIP [facility] Specimen from nose (specimen) NASAL STRUCTURE / Unknown 04/16/2021 12:21 PM POST GRADUATE INTERNSHIP us Vernon Mercedes MD MICROBIOLOGY - GENERAL ORDERA BLES Final Result [facility] [address] [place] [address], documented in this encounter Visit Diagnoses Diagnosis Sinusitis Unspecified sinusitis (chronic) documented in this encounter Additional Health Concerns Infection Onset Date Last Indicated Resolved Time COVID-19 Rule Out 04/16/2021 04/16/2021 04/16/2021 12:50 PM POST GRADUATE INTERNSHIP COVID-19 Confirmed 04/16/2021 04/16/2021 12:32 AM POST GRADUATE INTERNSHIP documented as of this encounter Care Teams Aeronautical Engineer Relationship Specialty Start Date End Date Vernon Mercedes MD [address] [place] [address] PCP - General FAMILY PRACTICE 10/27/15 12/02/21 Evaristo Allan MD [facility] [place] [address] [employer] Footwear Production Machine Operator CARDIOVASCULAR DISEASE 08/19/16 Raul Santana MD [facility] [place] [address] CLINICAL CARDIAC ELECTROPHYSIOLOGY 06/16/17 Danny Blackwell MD [address] [place] [address] ORTHOPAEDIC SURGERY 05/01/19 Gayle Arce APRN, WIRE PHOTO OPERATOR NEWS-C [address] [facility] [address] [place] [address] NURSE PRACTITIONER 03/03/20 documented as of this encounter
--- OUTSIDE RECORDS SUMMARY | 2024-04-23 05:17 | XMS_ITS | Encounter Summary ---
Author Organization [facility] Address [address] [place] [address]. [place] [address] [place] [address] Care Team Providers Care Grain Elevator Clerk Name Role Phone Vernon Mercedes MD Primary Care Provider [phone] Evaristo Allan MD Unavailable Unavailabl Raul Duran MD Unavailable Unavailabl Danny Lopes MD Unavailable [phone] Jolynn Arias APRN, AUTOMATION DESIGN ENGINEER-C Unavailable Reason for Visit * Reason Onset Date Comments Results 03/25/2020 Encounter Details Date Type Department Care Team ([facility] Contact Info) Description 03/25/2020 Telephone [facility] [address] [place] [address] Jolynn Arias APRN, AUTOMATION DESIGN ENGINEER-C [address] 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 No / Unsure 03/06/2020 10:30 AM AIRPLANE NAVIGATOR documented as of this encounter Functional Status [...] on: 03/31/2020 01:38 PM Modules accepted: Orders LANE NAVIGATOR * Jolynn Arias APRN, NP-C - 03/31/2020 [...] we may consider stress testing. He v/u. LANE NAVIGATOR * Jolynn Arias APRN, NP-C - 03/31/2020 1:01 PM CST Can decrease spironolactone from 25 mg to 12.5 mg daily to see if we can improve BP. Call back withupdate in a week. LANE NAVIGATOR * Sariah Milian RN - 03/28/2020 1:30 PM CST Pt called back. He is still dizzy at times but this has improved. BP running about 90/60. States he is a little better but not real good Please call him with recommendations. LANE NAVIGATOR * Emma Zepeda - 03/27/2020 3:12 PM CST DATE/TIME:03/27/20 at 2:14 pm CALLER: pt PT NAME/:pt PH #: [phone] PROVIDER/NEW PT: Yazmin REASON FOR CALL: left: Returning Angela's call. He did not leave his phone number. ENCOUNTER NOTE SENT TO: Yazmin nurse [place] LANE NAVIGATOR * Angela Clay RN - 03/27/2020 8:10 AM CST Still unable to reach pt to discuss results. Letter sent. LANE NAVIGATOR * Angela Clay RN - 03/26/2020 2:33 PM CST Attempted to reach pt again to discuss results. LMTC back. LANE NAVIGATOR * Angela Clay RN - 03/25/2020 4:33 PM CST Phoned pt to discuss results. LMTC back. LANE NAVIGATOR * Angela Clay RN - 03/25/2020 4:32 PM CST ----- Message from Jolynn Arias APRN, NP-C sent at 03/24/2020 8:43 PM AIRPLANE NAVIGATOR ----- No atrial fibrillation. His heart rate is still high and he has episodes of sinus tach. How is his BP and dizziness doing? If he is feeling better, could consider increasing metoprolol. LANE NAVIGATOR documented in this encounter Plan of Treatment Upcoming Encounters Date Type Department Care Team (Late st Contact Info) Description 04/25/2024 11:00 AM AIRPLANE NAVIGATOR Appointment [facility] [address] [place], [place] [phone] Ti Bonilla MD [address] [place] [phone] 05/23/2024 3:30 PM AIRPLANE NAVIGATOR Office Visit [facility] [address] [place] [address] Jyoti Escobar MD [address] [place] [address] documented as of this encounter Visit Diagnoses Not on filedocumented in this encounter Care Teams Grain Elevator Clerk Relationship Specialty Start Date End Date Vernon Mercedes MD [address] [place] [address] PCP - General FAMILY PRACTICE 10/27/15 12/02/21 Evaristo Allan MD [address] [place] [address] [place] Supervisor Liquefaction CARDIOVASCULAR DISEASE 08/19/16 [place] [address] [place] [address] [place] [address] CLINICAL CARDIAC ELECTROPHYSIOLOGY 06/16/17 Danny Blackwell MD [address] [place] [address] ORTHOPAEDIC SURGERY 05/01/19 Jolynn Arias, FLEET OPERATIONS MANAGER, AUTOMATION DESIGN ENGINEER-C 619 [facility] [address] [place] [phone] NURSE PRACTITIONER 03/03/20 documented as of this encounter
--- OUTSIDE RECORDS SUMMARY | 2024-04-23 05:17 | XMS_ITS | Encounter Summary ---
Author Organization [facility] Address [address] [place] [address]. [place] [address] [place] [address] Care Team Providers Care Interior Design Consultant Name Role Phone Vernon Mercedes MD Primary Care Provider [phone] Evaristo Allan MD Unavailable Unavailabl Raul Duran MD Unavailable Unavailabl Danny Lopes MD Unavailable [phone] Gayle Arce APRN, FUR JOINER-C Unavailable Encounter Details Date Type Department Care Team (Late st Contact Info) Description 07/24/2020 Transcribe Orders [facility] Pre Access Team [address] [place] [address] Vernon Mercedes MD [address] [facility] [place] [address] Social History Tobacco Use Types [...] st Contact Info) Description 04/25/2024 11:00 AM PSYCHOLOGY INTERN Appointment [facility] [address] [place] [address] Ti Bonilla MD [address] [place] [phone] 05/23/2024 3:30 PM PSYCHOLOGY INTERN Office Visit [facility] [address] [place] [phone] Jyoti Escobar MD [address] [place] [address] documented as of this encounter Visit Diagnoses Not on filedocumented in this encounter Care Teams Interior Design Consultant Relationship Specialty Start Date End Date Vernon Mercedes MD [address] [place] [phone] PCP - General FAMILY PRACTICE 10/27/15 12/02/21 Evaristo Allan MD [address] [address] [place] Customer Account Representative CARDIOVASCULAR DISEASE 08/19/16 Raul Santana MD [address] [place] [address] CLINICAL CARDIAC ELECTROPHYSIOLOGY 06/16/17 Danny Blackwell MD [address] [place] [address] ORTHOPAEDIC SURGERY 05/01/19 Gayle Arce, FORM BLOCK MAKER, FUR JOINER-C [address] [facility] [address] [place] [address] NURSE PRACTITIONER 03/03/20 documented as of this encounter
--- OUTSIDE RECORDS SUMMARY | 2024-04-23 05:17 | XMS_ITS | Encounter Summary ---
Author Organization [facility] Address [address] [place] [address]. [place], [place] [address] [place] [address] Care Team Providers Care Privacy Director Name Role Phone Vernon Mercedes MD Primary Care Provider [phone] Evaristo Allan MD Unavailable UnavailRaul Suresh MD Unavailable Unavailabl Danny Lopes MD Unavailable [phone] Gayle Arce APRN, CAR WRECKER-C Unavailable Reason for Visit * Reason Comments Hospital H&P (SCAN) Encounter Details Date Type Department Care Team (Late st Contact Info) Description 06/23/2020 Scan [facility] [address] [facility] [place] [address] Scanned, Documents Hospital H&P (SCAN) [...] 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 Not on [...] st Contact Info) Description 04/25/2024 11:00 AM BRIDGE MANAGER Appointment [facility] [address] [place] [address] Ti Bonilla MD [address] [place] [phone] 05/23/2024 3:30 PM BRIDGE MANAGER [facility] [address] [place] [phone] Jyoti Escobar MD [address] [place] [address] documented as of this encounter Visit Diagnoses Not on filedocumented in this encounter Care Teams Privacy Director Relationship Specialty Start Date End Date Veronn Mercedes MD [address] [place] [phone] PCP - General FAMILY PRACTICE 10/27/15 12/02/21 Evaristo Allan MD 12[address] [facility] [place] [address] [place] Reverse Unit Operator Fisherman CARDIOVASCULAR DISEASE 08/19/16 Raul Santana MD [address] [place] [address] CLINICAL CARDIAC ELECTROPHYSIOLOGY 06/16/17 Danny Blackwell MD [address] [place] [address] ORTHOPAEDIC SURGERY 05/01/19 Gayle Arce APRN, CAR WRECKER-C [address] [facility] [address] [place] [address] NURSE PRACTITIONER 03/03/20 documented as of this encounter
--- OUTSIDE RECORDS SUMMARY | 2024-04-23 05:17 | XMS_ITS | Encounter Summary ---
Author Organization [facility] Address [address] [place] [address]. 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 Not on [...] st Contact Info) Description 04/25/2024 11:00 AM HEATING AND BLENDING SUPERVISOR Appointment [facility] [address] [place] [address] Ti Bonilla MD [address] [place] [phone] 05/23/2024 3:30 PM HEATING AND BLENDING SUPERVISOR [facility] [address] [place] [address] Jyoti Escobar MD [address] [place] [address] documented as of this encounter Visit Diagnoses Not on filedocumented in this encounter Care Teams [employer] Social Studies Teacher Relationship Specialty Start Date End Date Vernon Mercedes [place] [address] PCP - General FAMILY PRACTICE 10/27/15 12/02/21 Evaristo Allan MD [address] [place] [address] [place] Driver'S License Reviewing Officer CARDIOVASCULAR DISEASE 08/19/16 Raul Santana MD [address] [place] [address] CLINICAL CARDIAC ELECTROPHYSIOLOGY 06/16/17 Danny Blackwell MD [address] [place] [address] ORTHOPAEDIC SURGERY 05/01/19 Gayle Arce, LINE LEADER, OIL DISPENSER-C [address] [facility] [address] [place] [phone] NURSE PRACTITIONER 03/03/20 documented as of this encounter
--- OUTSIDE RECORDS SUMMARY | 2024-04-23 05:17 | XMS_ITS | Encounter Summary ---
Author Organization [facility] Address [address] [place] [address]. [place] [address] [place] [address] Care Team Providers Care Supervisor Commissary Production Name Role Phone Vernon Mercedes MD Primary Care Provider [phone] Evaristo Allan MD Unavailable UnavailRaul Suresh MD Unavailable Unavailabl Danny Lopes MD Unavailable [phone] Gayle Arce APRN, VIDEO COORDINATOR-C Unavailable Reason for Visit * Reason Onset Date Comments Medication 02/06/2020 Prior Authorizat ion for Pradaxa Encounter Details Date Type Department Care Team (Late st Contact Info) Description 02/06/2020 Telephone [facility] [address] [place] [address] Raul Santana MD Medication (Prior [...] 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 No / Unsure 03/06/2020 10:30 AM SCALE AGENT documented as of this encounter Functional Status [...] 02/06/2020 3:44 PM CDT PA-Approved (02/04/2020-02/03/2021). Called [facility] to inform them of the approval. [...] submitted through CoverMyMeds for Pradaxa 150mg Claire: [id number] documented in this encounter Plan of Treatment Upcoming Encounters Date Type Department Care Team (Late st Contact Info) Description 04/25/2024 11:00 AM SCALE AGENT Appointment [facility] [address] [place] [address] Ti Bonilla MD [address] [place] [phone] 05/23/2024 3:30 PM SCALE AGENT Office Visit [facility] [address] [place] [address] Jyoti Escobar MD [address] [place] [address] documented as of this encounter Visit Diagnoses Not on filedocumented in this encounter Care Teams Supervisor Commissary Production Relationship Specialty Start Date End Date Vernon Mercedes MD [address] [place] [phone] PCP - General FAMILY PRACTICE 10/27/15 12/02/21 Evaristo Allan MD [facility] [place] [address] [place] Client Services Vice President CARDIOVASCULAR DISEASE 08/19/16 Raul Santana MD [address] [place] [address] CLINICAL CARDIAC ELECTROPHYSIOLOGY 06/16/17 Danny Blackwell MD [address] [place] [phone] ORTHOPAEDIC SURGERY 05/01/19 Gayle Arce APRN, VIDEO COORDINATOR-C 619 [facility] [address] [place] [address] NURSE PRACTITIONER 03/03/20 documented as of this encounter
--- OUTSIDE RECORDS SUMMARY | 2024-04-23 05:17 | XMS_ITS | Encounter Summary ---
Author Organization [facility] Address [address] [place] [address]. [place], [place] [address] [place] [address] Care Team Providers Care Seed Buyer Name Role Phone Vernon Mercedes MD Primary Care Provider [phone] Evaristo Allan MD Unavailable Unavailabl Raul Duran MD Unavailable Unavailabl Danny Lopes MD Unavailable [phone] Gayle Arce APRN, MAINTENANCE PLUMBER-C Unavailable Encounter Details Date Type Department Care Team (Late st Contact Info) Description 04/30/2021 2:47 PM BOTTOM BLEACHER - 04/30/2021 11:59 PM BOTTOM BLEACHER Hospital Encounter [facility] [address] [place] [phone] Lora Ace, [facility] [address] [place] [phone] Discharge Disposition: Home or Self Care (Routine [...] 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 No / Unsure 04/30/2021 2:41 PM BOTTOM BLEACHER documented as of this encounter Functional Status [...] Contact Info) Description 04/25/2024 11:00 AM BOTTOM BLEACHER Appointment [facility] [place] [address] Ti Bonilla MD [address] [place] [phone] 05/23/2024 3:30 PM BOTTOM BLEACHER Office Visit [facility] [address] [place] [phone] Jyoti Escobar MD [address] [place] [address] documented as of this encounter Procedures Procedure Name Priority Date/Time Associated Diagnosis Comments XR CHEST PA+LAT Routine 04/30/2021 2:56 PM BOTTOM BLEACHER Cough documented in this encounter Results * XR CHEST PA+LAT (04/30/2021 2:56 PM BOTTOM BLEACHER) Anatomical Region Laterality Modality Chest Radiographic Shannan ging 04/30/2021 2:58 PM BOTTOM BLEACHER Impressions 04/30/2021 3:00 PM BOTTOM BLEACHER IMPRESSION: Few peripheral groundglass opacities within the lungs which could represent improving pneumonia in the appropriate clinical setting. Shallow inspiratory lung volumes. Ordered By: LORA SERNA Interpreted By: Lauro Alves MD, 04/30/2021 2:58 PM Narrative 04/30/2021 3:00 PM BOTTOM BLEACHER Examination: XR CHEST PA+LAT, 04/30/2021 2:58 PM. [...] MD, 04/30/2021 2:58 PM us Lora Serna CNC LATHE MACHINE OPERATOR-BC GENERAL IMAGIN G Final Result documented in this encounter Visit Diagnoses Diagnosis Cough documented in this encounter Additional Health Concerns Infection Onset Date Last Indicated Resolved Time COVID-19 Confirmed 04/16/2021 04/16/2021 12:32 AM BOTTOM BLEACHER documented as of this encounter Care Teams Seed Buyer Relationship Specialty Start Date End Date Vernon Mercedes MD [address] [place] [address] PCP - General FAMILY PRACTICE 10/27/15 12/02/21 Evaristo Allan MD Replaced by [facility] [place] [address] [place] Accounting Associate CARDIOVASCULAR DISEASE 08/19/16 Raul Santana MD Replaced by [facility] [place] [address] CLINICAL CARDIAC ELECTROPHYSIOLOGY 06/16/17 Danny Blackwell MD 5 [place] [address] ORTHOPAEDIC SURGERY 05/01/19 Gayle Arce, EXECUTIVE COMMUNICATIONS MANAGER, MAINTENANCE PLUMBER-C [address] [facility] [address] [place] [phone] NURSE PRACTITIONER 03/03/20 documented as of this encounter
--- OUTSIDE RECORDS SUMMARY | 2024-04-23 05:17 | XMS_ITS | Encounter Summary ---
Author Organization [facility] Address [address] [place] [address]. [place], [place] [address] [place] [address] Care Team Providers Care Adobe Cq Developer Name Role Phone Vernon Mercedes MD Primary Care Provider [phone] Evaristo Allan MD Unavailable UnavailRaul Suresh MD Unavailable Unavailabl Danny Lopes MD Unavailable [phone] Gayle Arce APRN, TRIM OPERATOR-C Unavailable Encounter Details Date Type Department [...] Contact Info) Description 04/25/2024 11:00 AM PRODUCTION OPERATIONS MANAGER Appointment [facility] [place] [facility] [address] [place] [address] Ti Bonilla MD [address] [place] [phone] 05/23/2024 3:30 PM PRODUCTION OPERATIONS MANAGER [facility] [address] [place] [address] Jyoti Escobar MD [address] [place] [address] documented as of this encounter Visit Diagnoses Not on filedocumented in this encounter Care Teams Adobe Cq Developer Relationship Specialty Start Date End Date Vernon [place] [address] PCP - General FAMILY PRACTICE 10/27/15 12/02/21 Evaristo Allan MD [address] [place] [address] [place] Advertising Writer CARDIOVASCULAR DISEASE 08/19/16 Raul Santana MD [address] [place] [address] CLINICAL CARDIAC ELECTROPHYSIOLOGY 06/16/17 Danny Blackwell MD [address] [place] [address] ORTHOPAEDIC SURGERY 05/01/19 Gayle Arce, ETCHED CIRCUIT PROCESSOR, TRIM OPERATOR-C [address] [facility] [address] [place] [phone] NURSE PRACTITIONER 03/03/20 documented as of this encounter
--- OUTSIDE RECORDS SUMMARY | 2024-04-23 05:17 | XMS_ITS | Encounter Summary ---
Author Organization [facility] Address [address] [place] [address]. [place], [place] [address] [place] [address] Care Team Providers Care Cooler Service Supervisor Name Role Phone Vernon Mercedes MD Primary Care Provider [phone] Evaristo Allan MD Unavailable Unavailabl Ralu Duran MD Unavailable Unavailabl Danny Lopes MD Unavailable [phone] Gayle Arce APRN BOAT MECHANIC-C Unavailable Reason for Visit * Reason Comments Ankle Injury Encounter Details Date Type Department Care Team (Late st Contact Info) Description 01/03/2021 11:04 AM CDT - 01/03/2021 1:00 PM CDT Emergency [facility] [address] [place] [address] [place] [address] Daniel Olsen MD [address] [place] [address] Ankle Injury Discharge Disposition: Home or [...] 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 * Ankle Sprain Discharge Instructions (Lebanese) * Foot Sprain Discharge Instructions (Lebanese) * CRUTCH MOBILITY: PARTIAL WEIGHT BEARING (GEORGIAN) documented in this encounter Medications at Time [...] apply route daily. 03/06/20 Gayle Arce APRN, BOAT MECHANIC-C dabigatran (PRADAXA) 150 MG Cap Take 1 capsule (150 mg total) by mouth 2 (two) times daily. 12/28/20Gayle Arce APRN, BOAT MECHANIC-C famotidine 40 MG tablet Take 40 mg [...] times a day. 12/23/20 Gayle Arce APRN, BOAT MECHANIC-C nitroglycerin 0.[address] 1 [...] CATHETERIZATION 01/04/2018 occluded prox RCA w/well developed orfs-as-tnvht collaterals lvef 55-60% ??? CARDIAC CATHETERIZATION 11/13/2018 ??? FRACTURE SURGERY ??? 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 HERNIA REPAIR ??? JOINT REPLACEMENT ??? KNEE ARTHROPLASTY Bilateral ??? LITHOTRIPSY ??? XA ABLATION 05/19/2016 ??? XA CORONARY INTERVENTION 03/24/2018 MANAGER INTERNSHIP PCI-mid RCA FAMILY HISTORY: Family History Problem [...] ANKLE RT 2V Final Result by User, [id number] (01/03 1208) EXAMINATION: X-ray right ankle, 2 [...] FOOT RT 3V Final Result by User, [id number] (01/03 8814) Examination: Right foot 3 views Exam date/time: [...] st Contact Info) Description 04/25/2024 11:00 AM KINDER TEACHER Appointment [facility] [address] [place] [address] Ti Bonilla MD [address] [place] [phone] 05/23/2024 3:30 PM KINDER TEACHER Office Visit [facility] [address] [place] [address] Jyoti Escobar MD [address] [place] [phone] documented as of this encounter Procedures Procedure [...] site documented in this encounter Care Teams Cooler Service Supervisor Relationship Specialty Start Date End Date Vernon Mercedes MD [address] [place] [phone] PCP - General FAMILY PRACTICE 10/27/15 12/02/21 Evaristo Allan MD [facility] hospital[address] [place] [address] [place] Energy Efficiency Engineer CARDIOVASCULAR DISEASE 08/19/16 Raul Santana MD [address] [place], [place] [address] [address] CLINICAL CARDIAC ELECTROPHYSIOLOGY 06/16/17 Danny Blackwell MD 5 [place] [address] ORTHOPAEDIC SURGERY 05/01/19 Gayle Arce APRN, BOAT MECHANIC-C [address] [facility] [address] [place] [address] NURSE PRACTITIONER 03/03/20 documented as of this encounter
--- OUTSIDE RECORDS SUMMARY | 2024-04-23 05:17 | XMS_ITS | Encounter Summary ---
Author Organization [facility] Address [address] [place] [address]. 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 Not on file Not [...] for Feb 20 at 9:00 am at [facility] with Katerin Arce NP, pt [...] them out to tell Gayle SCHROEDER [phone] Mercedes wants him to [...] APPT DATE/TIME: Jan 30 at 9:30 at [facility] TESTING NEEDED/SCHEDULED:no COVID+TEST OR EXPOSURE IN [...] st Contact Info) Description 04/25/2024 11:00 AM PREDATORY ANIMAL EXTERMINATOR Appointment [facility] [place] [address] Ti Bonilla MD [address] [place] [phone] 05/23/2024 3:30 PM PREDATORY ANIMAL EXTERMINATOR Office Visit [facility] [address] [place] [address] Jyoti Escobar MD [address] [place] [phone] documented as of this encounter Visit Diagnoses Not on filedocumented in this encounter Care Teams Human Service Specialist Relationship Specialty Start Date End Date Vernon Mercedes MD [facility] [place] [phone] PCP - General FAMILY PRACTICE 10/27/15 12/02/21 Evaristo Allan MD [facility] [place] [address] [place] Academic Affairs Specialist CARDIOVASCULAR DISEASE 08/19/16 Raul Santana MD [address] [place] [address] CLINICAL CARDIAC ELECTROPHYSIOLOGY 06/16/17 Danny Blackwell MD [address] [place] [address] ORTHOPAEDIC SURGERY 05/01/19 documented as of this encounter
--- OUTSIDE RECORDS SUMMARY | 2024-04-23 05:17 | XMS_ITS | Encounter Summary ---
Author Organization [facility] Address [address] [place] [address]. [place], [place] [address] [place], [place] [address] Care Team Providers Care Audit Partner Name Role Phone Vernon Mercedes MD Primary Care Provider [phone] Evaristo Allan MD Unavailable UnavailRaul Suresh MD Unavailable Unavailabl e Danny Blackwell MD Unavailable [phone] Reason for Visit * Reason Comments Postop Followup Revision right total knee arthroplasty DOS:10/15/2019 Encounter Details Date Type Department Care Team (Latest Contact Info) Description 01/16/2020 2:00 PM CDT Office Visit [address] [address] Danny Blackwell MD [address] [place] [address] Postop Followup (Revision right total knee arthroplasty [...] 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 Essential hypertension ??? Paroxysmal atrial fibrillation ([facility]) ??? jail current use of anticoagulant therapy ??? Obstructive sleep apnea ??? Hyperlipidemia ??? Diabetes ([facility]) ??? Coronary artery disease ??? Chronic total occlusion of [place] coronary artery ??? Cardiovascular stress test abnormal ??? Arthritis of knee ??? Derangement of medial meniscus, left ??? Heartburn ??? Knee pain ??? Mechanical complication of internal orthopedic device, implant or graft, initial encounter ([facility]) ??? Patella-femoral syndrome ??? Pes anserine bursitis ??? Recurrent ventral incisional hernia ??? Abdominal pain ??? Failure of total knee replacement, initial encounter ([facility]) ??? S/P coronary artery stent placement ??? 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 Status post revision of total replacement of right knee History: Past Medical History: Diagnosis Date ??? Abnormal stress test ??? Arthritis ??? 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 Coronary artery disease ??? Diabetes ([facility]) ??? Fatigue ??? GERD (gastroesophageal reflux disease) ??? Headache ??? Hyperlipidemia ??? Hypertension has had elevated B/P readings ??? Kidney stone ??? SARAI on CPAP ??? Paroxysmal atrial fibrillation ([facility]) ??? PONV (postoperative nausea and vomiting) Past Surgical History: Procedure Laterality Date ??? CARDIAC CATHETERIZATION 01/04/2018 occluded prox RCA w/well developed gimp-aw-xeesb collaterals lvef 55-60% ??? CARDIAC CATHETERIZATION 11/13/2018 ??? FRACTURE SURGERY ??? 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 HERNIA REPAIR ??? KNEE ARTHROPLASTY Bilateral ??? LITHOTRIPSY ??? XA ABLATION 05/19/2016 ??? XA CORONARY INTERVENTION 03/24/2018 MASH FILTER OPERATOR PCI-mid RCA Family History Problem Relation [...] Not on file Occupational History ??? 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 Financial resource [...] st Contact Info) Description 04/25/2024 11:00 AM UKRAINIAN FOLK ARTS INSTRUCTOR Appointment [facility] [address] [facility] [address] [facility] [place] [address] Ti Bonilla MD [address] [place] [phone] 05/23/2024 3:30 PM UKRAINIAN FOLK ARTS INSTRUCTOR Office Visit [facility] [address] [place] [address] Jyoti Escobar MD [address] [place] [address] documented as of this encounter Visit Diagnoses Diagnosis Status post revision of total replacement of right knee- Primary documented in this encounter Care Teams Audit Partner Relationship Specialty Start Date End Date Vernon Mercedes MD [address] [place] [address] PCP - General FAMILY PRACTICE 10/27/15 12/02/21 Evaristo Allan MD [address] [place] [address] [place] Branch Manager Trainee CARDIOVASCULAR DISEASE 08/19/16 Raul Santana MD [address] [place] [address] CLINICAL CARDIAC ELECTROPHYSIOLOGY 06/16/17 Danny Blackwell MD [address] [place] [address] ORTHOPAEDIC SURGERY 05/01/19 documented as of this encounter
--- OUTSIDE RECORDS SUMMARY | 2024-04-23 05:17 | XMS_ITS | Encounter Summary ---
Author Organization [facility] Address [address] [place] [address]. [place] [address] [place] [address] Care Team Providers Care Electrocardiograph Operator Name Role Phone Vernon Mercedes MD Primary Care Provider [phone] Elza Floyd MD Unavailable Unavailabl Raul Duran MD Unavailable Unavailabl Danny Lopes MD Unavailable [phone] Gayle Arce APRN, EXTENSION PROFESSOR-C Unavailable Encounter Details Date Type Department Care Team (Late st Contact Info) Description 12/23/2020 Orders Only [facility] [facility] [address] [place] [address] Elza Floyd MD Social History [...] st Contact Info) Description 04/25/2024 11:00 AM CLAY PROCESSING FACTORY WORKER Appointment [facility] [address] [place] [address] [place] [address] Ti Bonilla MD [address] [place] [phone] 05/23/2024 3:30 PM CLAY PROCESSING FACTORY WORKER Office Visit [facility] [address] [facility] [place] [address] Jyoti Escobar MD [address] [place] [address] [phone] documented as of this encounter Procedures Procedure Name Priority Date/Time Associated Diagnosis Comments ELECTROCARDIOGRAM (NON MIDMARK ACQUIRED) Routine 12/23/2020 9:46 AM CDT Paroxysmal atrial fibrillation ([facility]) documented in this encounter Results * ELECTROCARDIOGRAM (12/23/2020 9:46 AM CDT) 12/23/2020 9:46 AM CDT Narrative [facility] - 12/29/2020 7:09 PM CDT ? [facility] ?[address] [place], [place] ??[address] ? Test Date: ?2020-12-23 Pat Name: ? ELZA MCKEON ? Department: ? Room: ? Gender: ? Male ? Ordnance Technician: ?? srr : ?1960 ? Requested By: ELZA FLOYD Order Number: [id number] ?Reading MD: ?? Elza Floyd ? Measurements Intervals ?Point Clear ? Rate: ? 102 ?P: ?16 MN: ? 216 ?QRS: ?61 QRSD: ? 112 ?T: ?21 QT: ? 342 ? QTc: ?446 ? Interpretive Statements SINUS TACHYCARDIA WITH FIRST DEGREE AV BLOCK INCOMPLETE RIGHT BUNDLE BRANCH BLOCK Procedure Note Elza Floyd MD - 12/29/2020 [facility], [facility] [address] [place] [address] Test Date: 2020-12-23 Pat Name: [facility] Department: Room: Gender: Male Ordnance Technician: r : 1960 Requested By: ELZA FLOYD Order Number: [id number] Jose Antonio MD: Elza Floyd Measurements Intervals Point Clear Rate: 102 P: 16 MN: 216 QRS: 61 QRSD: 112 T: 21 QT: 342 QTc: 446 Interpretive Statements SINUS TACHYCARDIA WITH FIRST DEGREE AV BLOCK INCOMPLETE RIGHT BUNDLE BRANCH BLOCK us Elza Floyd MD PROCEDURES-ORDERABLE NO LENO RGE Final Result [facility] documented in this encounter Visit Diagnoses Diagnosis Paroxysmal atrial fibrillation ([facility])- Primary Atrial fibrillation documented in this encounter Care Teams Electrocardiograph Operator Relationship Specialty Start Date End Date Vernon Mercedes MD [address] [facility] [place] [address] PCP - General FAMILY PRACTICE 10/27/15 12/02/21 Elza Floyd MD [address] [place] [address] [place] Catalog Specialist CARDIOVASCULAR DISEASE 08/19/16 Raul Santana MD [address] [place] [address] CLINICAL CARDIAC ELECTROPHYSIOLOGY 06/16/17 Danny Blackwell MD [address] [place] [address] ORTHOPAEDIC SURGERY 05/01/19 Gayle Arce, NEURODIAGNOSTIC TECHNOLOGIST, EXTENSION PROFESSOR-C [address] [facility] [address] [place] [phone] NURSE PRACTITIONER 03/03/20 documented as of this encounter
--- OUTSIDE RECORDS SUMMARY | 2024-04-23 05:17 | XMS_ITS | Encounter Summary ---
Author Organization [facility] Address [address] [place] [address]. [place] [address] [place] [address] Care Team Providers Care Fireman Helper Name Role Phone Vernon Mercedes MD Primary Care Provider [phone] Evaristo Allan MD Unavailable Unavailabl e Raul Santana MD Unavailable Unavailabl e Danny Blackwell MD Unavailable [phone] Gayle Arce APRN, NUT SORTER OPERATOR-C Unavailable Reason for Referral * Procedure (Routine) - Closed Specialty Diagnoses / Procedures Referred By Contac t Referred To Contact Diagnoses Coronary artery disease involving afognak heart, unspecified vessel or lesion type, unspecified whether angina present Procedures Stress Test (Nuclear) [facility] [place] [facility] [address] [facility] [place] [address] Phone: tel: Referral ID Status Reason Start Date Expiration Date Visits Re quested Visits Authorized [id number] Closed 01/13/2021 02/12/2022 1 1 Reason for Visit * Imaging (Routine) - Closed Specialty Diagnoses / Procedures Referred By Contac t Referred To Contact RADIOLOGY Diagnoses Coronary artery disease involving afognak coronary artery of afognak heart, unspecified whether angina present Chest pain, unspecified type Tachycardia Difficulty walking Procedures NM PHARM NUC STRESS TEST 1DAY NM PHARM NUC STRESS TEST 1DAY Gayle Arce APRN, NUT SORTER OPERATOR-C [address] [facility] [address] [place] [address] Phone: tel: fax: Referral ID Status Reason Start Date Expiration Date Visits Re quested Visits Authorized [id number] Closed 12/23/2020 01/23/2022 1 1 Encounter Details Date Type Department Care Team (Latest Contact Info) Description 01/13/2021 7:55 AM CDT - 01/13/2021 11:59 PM CDT Hospital Encounter [facility] [place] [facility] [address] [facility] [place] [address] Gayle Arce, [facility], NUT SORTER OPERATOR-C [address] [facility] [address] [place] [address] [place] [address] [place] [address] Discharge Disposition: Home or Self [...] st Contact Info) Description 04/25/2024 11:00 AM PATROL AGENT App[address] [facility] [address] [place] [address] Ti Bonilla MD [address] [place] [phone] 05/23/2024 3:30 PM PATROL AGENT Office Visit [facility] [address] [place] [phone] Jyoti Escobar MD [address] [place] [address] [phone] documented as of this encounter Procedures Procedure Name Priority Date/Time Associated Diagnosis Comments CARDIOLOGY STRESS TEST ONLY, EXERCISE Routine 01/13/2021 10:33 AM CDT Coronary artery disease involving afognak heart, unspecified vessel or lesion type, unspecified whether angina present documented in this encounter Visit Diagnoses Diagnosis Coronary artery disease involving afognak heart, unspecified vessel or lesion type, unspecified [...] mg documented in this encounter Care Teams Fireman Helper Relationship Specialty Start Date End Date Vernon Mercedes MD [address] [place] [address] PCP - General FAMILY PRACTICE 10/27/15 12/02/21 Evaristo Allan MD [facility] [place] [address] [employer] Real Estate Associate CARDIOVASCULAR DISEASE 08/19/16 Raul Santana MD [facility] [place] [address] CLINICAL CARDIAC ELECTROPHYSIOLOGY 06/16/17 Danny Blackwell MD [address] [place] [address] ORTHOPAEDIC SURGERY 05/01/19 Gayle Arce APRN, NUT SORTER OPERATOR-C [address] [facility] [address] [place] [address] NURSE PRACTITIONER 03/03/20 documented as of this encounter
--- OUTSIDE RECORDS SUMMARY | 2024-04-23 05:17 | XMS_ITS | Encounter Summary ---
Author Organization [facility] Address [address] [place] [address]. [place], [place] [address] [place] [address] Care Team Providers Care Lease Broker Name Role Phone Vernon Mercedes MD Primary Care Provider Evaristo Allan MD Unavailable Unavailabl e Raul Santana MD Unavailable Unavailabl e Danny Blackwell MD Unavailable [phone] Gayle Arce APRN ASSISTANT PROFESSOR OF SPANISH-C Unavailable Reason for Visit * Reason Comments Groin Pain Pt to the ER with c/ o hemorrhoid pain and rash to the perineal and groin area. The symptoms have been persistant for 2 weeks. Pt has not seen his PCP. 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 * Fungal Skin Rash (Georgian) * Hemorrhoids ED (Georgian) documented in this encounter Medications at Time [...] CATHETERIZATION 01/04/2018 occluded prox RCA w/well developed wkat-ic-oqccy collaterals lvef 55-60% ??? CARDIAC CATHETERIZATION 11/13/2018 ??? FRACTURE SURGERY ??? 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 HERNIA REPAIR ??? JOINT REPLACEMENT ??? KNEE ARTHROPLASTY Bilateral ??? LITHOTRIPSY ??? XA ABLATION 05/19/2016 ??? XA CORONARY INTERVENTION 03/24/2018 COMBER SETTER PCI-mid RCA SOCIAL HISTORY Social History Socioeconomic History ??? Marital status: Spouse name: Not on file ??? Number of children: 1 ??? Years of education: Not on file ??? Highest education level: Not on file Occupational History ??? 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 Smoking status: Never Smoker [...] Gatherings with Friends and Family: ??? Attends Islam Services: ??? Active Member of Clubs or [...] 2. Hemorrhoid HEMORRHOIDS Vernon Mercedes MD [address] [place] [address] In 2 days If symptoms worsen Discharge Medication List as of 10/23/2020 12:43 AM START taking these medications Details fluconazole (DIFLUCAN) 100 MG tablet Take 1 tablet (100 mg total) by mouth daily for 7 days., Starting [facility] 10/23/2020, Until [facility] 10/30/2020, Eprescribe HYDROcodone-acetaminophen 5-325 MG tablet Take 1-2 tablets by mouth every 6 (six) hours as needed. Indications: Acute Pain < 3 Day Supply, Starting [facility] 10/23/2020, Eprescribe hydrocortisone [address] 1 suppository (25 mg total) rectally 2 (two) times daily as needed for Hemorrhoids., Starting [facility] 10/23/2020, Until [facility] 11/02/2020, Eprescribe nystatin powder Apply topically 2 (two) times daily., Starting [facility] 10/23/2020, Seancribe Bj Salinas MD 10/23/20 0056 documented in this encounter Plan of Treatment Upcoming Encounters Date Type Department Care Team (Late st Contact Info) Description 04/25/2024 11:00 AM ACID EXTRACTOR Appointment [facility] [address] [facility] [place] [address] Ti Bonilla MD [address] [place] [phone] 05/23/2024 3:30 PM ACID EXTRACTOR Office Visit [facility] [place] [phone] Jyoti Escobar MD [address] [place] [address] documented as of this encounter Visit Diagnoses [...] RN) documented in this encounter Care Teams Lease Broker Relationship Specialty Start Date End Date Vernon Mercedes MD [address] [place] [phone] PCP - General FAMILY PRACTICE 10/27/15 12/02/21 Evaristo Allan MD [address] [place] [address] [place] Photo Tube Assembler CARDIOVASCULAR DISEASE 08/19/16 Raul Santana MD [address] [place] [address] CLINICAL CARDIAC ELECTROPHYSIOLOGY 06/16/17 Danny Blackwell MD [address] [place] [address] ORTHOPAEDIC SURGERY 05/01/19 Gayle Arce, CHESTNUT TANNER, ASSISTANT PROFESSOR OF SPANISH-C [address] [facility] [address] [place] [address] NURSE PRACTITIONER 03/03/20 documented as of this encounter
--- OUTSIDE RECORDS SUMMARY | 2024-04-23 05:17 | XMS_ITS | Encounter Summary ---
Author Organization [facility] Address [address] [place] [address]. [place], [place] [address] [place] [address] Care Team Providers Care Industrial Sales Representative Name Role Phone Vernon Mercedes MD Primary Care Provider [phone] Evaristo Allan MD Unavailable Unavailabl Raul Duran MD Unavailable Unavailabl Danny Lopes MD Unavailable [phone] Gayle Arce APRN POWER PLANT ASSISTANT-C Unavailable Reason for Visit * Reason Comments Neck Pain * Physical Therapy (Routine) - Closed Specialty Diagnoses / Procedures Referred By Charito ledbetter Referred To Contact PHYSICAL THERAPY / [facility] Physical Therapy Diagnoses Neck Pain Procedures Vernon Jean MD [address] [place] [address] Phone: tel: fax: Kellee Rodríguez PT Referral ID Status Reason Start Date Expiration Date Visits Re quested Visits Authorized [id number] Closed 04/07/2021 04/08/2022 20 20 Encounter Details Date Type Department Care Team (Late st Contact Info) Description 04/07/2021 7:55 AM CONCRETE BUILDING ASSEMBLER - 04/07/2021 11:59 PM [facility] Hospital Encounter [facility] [address] [place] [address] Vernon Mercedes MD [address] [place] [address] Kellee Rodríguez, PT Neck Pain [...] COVID-19? No / Unsure 04/07/2021 7:54 AM CONCRETE BUILDING ASSEMBLER documented as of this encounter Functional Status [...] CATHETERIZATION 01/04/2018 occluded prox RCA w/well developed mgdr-tj-rzsex collaterals lvef 55-60% ??? CARDIAC CATHETERIZATION 11/13/2018 ??? FRACTURE SURGERY ??? 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 HERNIA REPAIR ??? JOINT REPLACEMENT ??? KNEE ARTHROPLASTY Bilateral ??? LITHOTRIPSY ??? XA ABLATION 05/19/2016 ??? XA CORONARY INTERVENTION 03/24/2018 PURCHASING MANAGER PCI-mid RCA Subjective: Diagnosis: neck pain Referring [...] exercises, modalities prn Treatment/Interventions: Therapeutic Exercise - 78136, Therapeutic Activity - 10434, Neuromuscular Re-education - 05370, Manual Therapy - 44776, Electrical Stimulation Unattended - 68680, Vasopneumatic Compression - 51727 and Mechanical Traction - 25965 Frequency: 3x/week Duration: 4 weeks GOALS: 1. [...] Name: Evaristo Zelaya Patient : 1960 Patient [facility] [address] [facility] [address] Dept: [phone] Dept RETE BUILDING ASSEMBLER documented in this encounter Plan of Treatment Upcoming Encounters Date Type Department Care Team (Late st Contact Info) Description 04/25/2024 11:00 AM CONCRETE BUILDING ASSEMBLER Appointment [facility] [address] [place] [address] Ti Bonilla MD [address] [place] [phone] 05/23/2024 3:30 PM CONCRETE BUILDING ASSEMBLER Office Visit [facility] [address] [place] [phone] Jyoti Escobar MD [address] [place] [phone] documented as of this encounter Visit Diagnoses Diagnosis Neck pain- Primary Cervicalgia documented in this encounter Care Teams Industrial Sales Representative Relationship Specialty Start Date End Date Vernon Mercedes MD [address] [place] [phone] PCP - General FAMILY PRACTICE 10/27/15 12/02/21 Evaristo Allan MD [address] [place] [address] Leeper Alloy Weigher CARDIOVASCULAR DISEASE 08/19/16 Raul Santana MD [address] [place] [address] CLINICAL CARDIAC ELECTROPHYSIOLOGY 06/16/17 Danny Blackwell MD [address] [place] [address] ORTHOPAEDIC SURGERY 05/01/19 Gayle Arce, UNDERWEAR CUTTER, POWER PLANT ASSISTANT-C [address] [facility] [address] [place] [phone] NURSE PRACTITIONER 03/03/20 documented as of this encounter
--- OUTSIDE RECORDS SUMMARY | 2024-04-23 05:17 | XMS_ITS | Encounter Summary ---
Author Organization [facility] Address [address] [place] [address]. [place] [address] [place] [address] Care Team Providers Care Licensed Funeral Director Name Role Phone Vernon Mercedes MD Primary Care Provider [phone] Evaristo Allan MD Unavailable Unavailabl Raul Duran MD Unavailable Unavailabl Danny Lopes MD Unavailable [phone] Gayle Arce APRN, RECEIVER DISPATCHER-C Unavailable Encounter Details Date Type Department Care Team (Late st Contact Info) Description 07/14/2020 Transcribe Orders [facility] Pre Access Team [address] [place] [address] Vernon Mercedes MD [address] [facility] [place] [address] Social History Tobacco Use Types [...] 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 Not on [...] st Contact Info) Description 04/25/2024 11:00 AM FEDERAL JUDICIAL LAW CLERK Appointment [facility] [address] [place] [address] Ti Bonilla MD [address] [place] [phone] 05/23/2024 3:30 PM FEDERAL JUDICIAL LAW CLERK Office Visit [facility] [address] [place] [phone] Jyoti Escobar MD [address] [place] [address]34361 documented as of this encounter Visit Diagnoses Not on filedocumented in this encounter Care Teams Licensed Funeral Director Relationship Specialty Start Date End Date Vernon Mercedes MD [address] [place] [address] PCP - General FAMILY PRACTICE 10/27/15 12/02/21 Evaristo Allan MD [address] [place] [address] [place] Performance Tester CARDIOVASCULAR DISEASE 08/19/16 Raul Santana MD [address] [place] [address] CLINICAL CARDIAC ELECTROPHYSIOLOGY 06/16/17 Danny Blackwell MD [address] [place] [address] ORTHOPAEDIC SURGERY 05/01/19 Gayle Arce, JOURNEYMAN PRESSMAN, RECEIVER DISPATCHER-C [address] [facility] [address] [place] [address] NURSE PRACTITIONER 03/03/20 documented as of this encounter
--- OUTSIDE RECORDS SUMMARY | 2024-04-23 05:17 | XMS_ITS | Encounter Summary ---
Author Organization [facility] Address [address] [place] [address]. [place], [place] [address] [place] [address] Care Team Providers Care Rotary Envelope Machine Operator Name Role Phone Vernon Mercedes MD Primary Care Provider [phone] Evaristo Allan MD Unavailable UnavailRaul Suresh MD Unavailable Unavailabl Danny Lopes MD Unavailable [phone] Gayle Arce APRN, CONSULTING SALES MANAGER-C Unavailable Encounter Details Date Type Department [...] Description 04/25/2024 11:00 AM VESSEL ENGINEER Appointment [facility] [address] [place] [address] Ti Bonilla MD [address] [place] [phone] 05/23/2024 3:30 PM VESSEL ENGINEER [facility] [address] [place] [address] Jyoti Escobar MD [address] [place] [address] documented as of this encounter Visit Diagnoses Not on filedocumented in this encounter Care Teams Rotary Envelope Machine Operator Relationship Specialty Start Date End Date Vernon Mercedes [place] [address] PCP - General FAMILY PRACTICE 10/27/15 12/02/21 Evaristo Allan MD [address] [place] [address] [place]xton Cooler Operator CARDIOVASCULAR DISEASE 08/19/16 Raul Santana MD [address] [place] [address] CLINICAL CARDIAC ELECTROPHYSIOLOGY 06/16/17 Danny Blackwell MD [address] [place] [address] ORTHOPAEDIC SURGERY 05/01/19 Gayle Arce, ROLLER STAINER, CONSULTING SALES MANAGER-C [address] [facility] [address] [place] [phone] NURSE PRACTITIONER 03/03/20 documented as of this encounter
--- OUTSIDE RECORDS SUMMARY | 2024-04-23 05:17 | XMS_ITS | Encounter Summary ---
Author Organization [facility] Address [address] [place] [address]. 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 Not [...] st Contact Info) Description 04/25/2024 11:00 AM MEXICAN FOOD MACHINE TENDER Appointment [facility] [facility] [address] Ti Bonilla MD [address] [place] [phone] 05/23/2024 3:30 PM MEXICAN FOOD MACHINE TENDER Office Visit [facility] [address] [place] [address] Jyoti Escobar MD [address] [place] [address] [phone] documented as of this encounter Procedures Procedure Name Priority Date/Time Associated Diagnosis Comments ELECTROCARDIOGRAM (NON MIDMARK ACQUIRED) Routine 02/21/2020 8:57 AM MEXICAN FOOD MACHINE TENDER Paroxysmal atrial fibrillation ([facility]) documented in this encounter Results * ELECTROCARDIOGRAM (NON MIDMARK ACQUIRED) (02/21/2020 8:57 AM MEXICAN FOOD MACHINE TENDER) 02/21/2020 8:57 AM MEXICAN FOOD MACHINE TENDER Narrative [facility] - 02/27/2020 2:07 PM MEXICAN FOOD MACHINE TENDER ? [facility], [facility] ?[address] [place], [place] ??[address] ? Test Date: ?2020-02-21 Pat Name: ? ELZA MCKEON ? Department: ? Room: ? Gender: ? Male ? Sound Installation Worker: ?? : ?1960 ? Requested By: ELZA ALLAN Order Number: [id number] ?Reading MD: ?? [facility] ? Measurements Intervals ?[place] ? Rate: ? 100 ?P: ?43 RI: ? 156 ?QRS: ?39 QRSD: ? 112 ?T: ?8 QT: ? 353 ? QTc: ?456 ? Interpretive Statements SINUS TACHYCARDIA INCOMPLETE RIGHT BUNDLE BRANCH BLOCK ABNORMAL RHYTHM ECG CAN FOOD MACHINE TENDER Procedure Note Matthew Colunga MD - 02/27/2020 [facility], [place] [address] [place] [address] Test Date: 2020-02-21 Pat Name: [facility] Department: Room: Gender: Male Sound Installation Worker: : 1960 Requested By: ELZA ALLAN Order Number: [id number] Jose Antonio MD: Matthew Colunga Measurements Intervals [place] Rate: 100 P: 43 RI: 156 QRS: 39 QRSD: 112 T: 8 QT: 353 QTc: 456 Interpretive Statements SINUS TACHYCARDIA INCOMPLETE RIGHT BUNDLE BRANCH BLOCK ABNORMAL RHYTHM ECG CAN FOOD MACHINE TENDER Elza Allan MD PROCEDURES-ORDERABLE NO LENO RGE Final Result Performing Organization Address City/State/[facility] Co de Phone Number [facility] documented in this encounter Visit Diagnoses Diagnosis Paroxysmal atrial fibrillation (CMS/HCC HHS/HCC)- Primary Atrial fibrillation documented in this encounter Care Teams Microbiology Manager Relationship Specialty Start Date End Date Vernon Mercedes MD [address] [place] [address] PCP - General FAMILY PRACTICE 10/27/15 12/02/21 [place] [address] [place] Supervisor Nutritional Yeast CARDIOVASCULAR DISEASE 08/19/16 Raul Santana MD [address] [place] [address] CLINICAL CARDIAC ELECTROPHYSIOLOGY 06/16/17 Danny Blackwell MD [address] [place] [address] ORTHOPAEDIC SURGERY 05/01/19 documented as of this encounter
--- OUTSIDE RECORDS SUMMARY | 2024-04-23 05:17 | XMS_ITS | Encounter Summary ---
Author Organization [facility] Address [address] [place] [address]. [place] [address] [place] [address] Care Team Providers Care Marketing Manager Name Role Phone Vernon Mercedes MD Primary Care Provider [phone] Evaristo Allan MD Unavailable Unavailabl Raul Duran MD Unavailable Unavailabl Danny Lopes MD Unavailable [phone] Gayle Arce APRN, BLENDING PLANT OPERATOR-C Unavailable Reason for Visit * Reason Onset Date Comments Schedule Test 12/23/2020 nuc med stress t est and echo Encounter Details Date Type Department Care Team ([facility] Contact Info) Description 12/23/2020 [facility]phone [facility] [address] [place] [address] Gayle Arce APRN, BLENDING PLANT OPERATOR-C [address] [facility] [address] [place] [address] Schedule Test (nuc med stress [...] Author Status Yes 10/15/2019 4:47 PM CDT Kalyyn Cohen RN Active * Do you have [...] for his echo on 01/12/21 @ 1:00, [facility] and his stress test has been rescheduled to 01/13/21 @ 7:15, [facility] as well. Unfortunately, I was not able to schedule both on the same day. Reminder letter mailed and new staff message sent to Gayle Allan's nurses's board. * Mavis Greenfield [place] - 12/29/2020 3:04 PM CDT Pt called needing to reschedule his stress test and echo scheduled on 01/01/21 at [facility] in [place], due to having a procedure the same day. Pt can be scheduled anytime after 01/01/21. Called and lvm for cardiopulmonary at [facility] advising of same and asked they call [phone]. * Mavis Greenfield [place] - 12/23/2020 3:08 PM CDT Images from the original note were not included. Gayle Arce APRN, BLENDING PLANT OPERATORKavitaC P Pccl Centralized Scheduling Needs a pharmacologic nuclear stress test and echo in [place]. ??He states any day works. ??He is ok scheduling these on separate days if necessary. ??No need to hold any meds. (CC'd Chart Board 12/23/20) Called and lvm for pt to call to schedule nuc med stress test and echo at [facility] in [place]. Advised pt both have been scheduled for 12/31/20 with an arrival time of 7:15 a.m. Nothing to eat or drink 4 hours prior to and no caffeine products 12 hours prior to. Letter with date, time, location and instructions mailed. Staff message sent to Gayle Arce and Dr. Allan's nurse's board. Asked he call [phone] or the option to schedule if he had any questions or if he neededto reschedule. documented in this encounter Plan of Treatment Upcoming Encounters Date Type Department Care Team (Late st Contact Info) Description 04/25/2024 11:00 AM CONE BAKER MACHINE Appointment [facility] [facility] [facility] [address] Ti Bonilla MD [address] [place] [phone] 05/23/2024 3:30 PM CONE BAKER MACHINE Office Visit [facility] [address] [place] [address] Jyoti Escobar MD [address] [place], [place] [address] documented as of this encounter Visit Diagnoses Not on filedocumented in this encounter Care Teams Marketing Manager Relationship Specialty Start Date End Date Vernon Mercedes MD [address] [place] [address] PCP - General FAMILY PRACTICE 10/27/15 12/02/21 Evaristo Allan MD [facility] [place] [address] [place] Data Support Specialist CARDIOVASCULAR DISEASE 08/19/16 Raul Santana MD [facility] [place] [address] CLINICAL CARDIAC ELECTROPHYSIOLOGY 06/16/17 Danny Blackwell MD 5 [place] [address] ORTHOPAEDIC SURGERY 05/01/19 Gayle Arce APRN, BLENDING PLANT OPERATOR-C [address] [facility] [address] [place] [address] NURSE PRACTITIONER 03/03/20 documented as of this encounter
--- OUTSIDE RECORDS SUMMARY | 2024-04-23 05:17 | XMS_ITS | Encounter Summary ---
Author Organization [facility] Address [address] [place] [address]. 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 [...] Contact Info) Description 04/25/2024 11:00 AM STOCK ANALYST Appointment [facility] [address] [place] [address] Ti Bonilla MD [address] [place] [phone] 05/23/2024 3:30 PM STOCK ANALYST [facility] [address] [place] [address] Jyoti Escobar MD [address] [place] [address] documented as of this encounter Visit Diagnoses Not on filedocumented in this encounter Care Teams Director Records Management Relationship Specialty Start Date End Date Vernon [place] [address] PCP - General FAMILY PRACTICE 10/27/15 12/02/21 Evaristo Allan MD [address] [place] [address] [place] Plant Attendant CARDIOVASCULAR DISEASE 08/19/16 Raul Santana MD [address] [place] [address] CLINICAL CARDIAC ELECTROPHYSIOLOGY 06/16/17 Danny Blackwell MD [address] [place] [address] ORTHOPAEDIC SURGERY 05/01/19 Gayle Arce, VAULT INSTALLER, CIVIL TECHNICIAN-C [address] [facility] [address] [place] [phone] NURSE PRACTITIONER 03/03/20 documented as of this encounter
--- OUTSIDE RECORDS SUMMARY | 2024-04-23 05:18 | XMS_ITS | Encounter Summary ---
Author Organization [facility] Address [address] [place] [address]. [place], [place] [address] [place] [address] Care Team Providers Care Change Management Coordinator Name Role Phone Vernon Mercedes MD Primary Care Provider [phone] Evaristo Allan MD Unavailable Unavailabl Raul Duran MD Unavailable Unavailabl Danny Lopes MD Unavailable [phone] Encounter Details Date Type Department Care [...] st Contact Info) Description 04/25/2024 11:00 AM ELEVATOR STARTER Appointment [facility] [address] [place] [address] Ti Bonilla MD [address] [place] [phone] 05/23/2024 3:30 PM ELEVATOR STARTER Office Visit [facility] [address] [place] [phone] Jyoti Escobar MD [address] [place] [address]35121 documented as of this encounter Visit Diagnoses Not on filedocumented in this encounter Care Teams Change Management Coordinator Relationship Specialty Start Date End Date Vernon Mercedes MD [address] [place] [phone] PCP - General FAMILY PRACTICE 10/27/15 12/02/21 [place] [address] [place] Business Applications Analyst CARDIOVASCULAR DISEASE 08/19/16 Raul Santana MD [address] [place] [address] CLINICAL CARDIAC ELECTROPHYSIOLOGY 06/16/17 Danny Blackwell MD [address] [place] [address] ORTHOPAEDIC SURGERY 05/01/19 documented as of this encounter
--- OUTSIDE RECORDS SUMMARY | 2024-04-23 05:18 | XMS_ITS | Encounter Summary ---
Author Organization [facility] Address [address] [place] [address]. [place], [place] [address] [place] [address] Care Team Providers Care Milk Pasteurizer Name Role Phone Vernon Mercedes MD Primary Care Provider [phone] Evaristo Allan MD Unavailable Unavailabl Raul Duran MD Unavailable Unavailabl Danny Lopes MD Unavailable [phone] Encounter Details Date Type Department Care [...] Contact Info) Description 04/25/2024 11:00 AM CONCRETE STONE FINISHER Appointment [facility] [address] [place] [address] Ti Bonilla MD [address] [place] [phone] 05/23/2024 3:30 PM CONCRETE STONE FINISHER Office Visit [facility] [address] [place] [address] Jyoti Escobar MD [address] [place] [address]96[address] documented as of this encounter Visit Diagnoses Not on filedocumented in this encounter Care Teams Milk Pasteurizer Relationship Specialty Start Date End Date Vernon Mercedes MD [address] [place] [phone] PCP - General FAMILY PRACTICE 10/27/15 12/02/21 [place] [address] [place] Fuel Cell Designer CARDIOVASCULAR DISEASE 08/19/16 Raul Santana MD [address] [place] [address] CLINICAL CARDIAC ELECTROPHYSIOLOGY 06/16/17 Danny Blackwell MD [address] [place] [address] ORTHOPAEDIC SURGERY 05/01/19 documented as of this encounter
--- OUTSIDE RECORDS SUMMARY | 2024-04-23 05:18 | XMS_ITS | Encounter Summary ---
Author Organization [facility] Address [address] [place] [address]. [place], [place] [address] [place] [address] Care Team Providers Care Tree Scout Name Role Phone Vernon Mercedes MD Primary Care Provider [phone] Evaristo Allan MD Unavailable Unavailabl e Raul Santana MD Unavailable Unavailabl e Danny Blackwell MD Unavailable [phone] Reason for Visit * Reason Comments Jnt Pain/Knee * Physical Medicine (Routine) - Closed Specialty Diagnoses / Procedures Referred By Charito ledbetter Referred To Contact PHYSICAL THERAPY Diagnoses Prosthetic joint implant failure, subsequent encounter Aftercare following right knee joint replacement surgery Dari Piña FNP-[place] [address] [place] [address] Phone: tel: fax: Referral ID Status Reason Start Date Expiration Date V isits Requested Visits Authorized [id number] Closed Physical Therapy 10/16/2019 11/14/2020 60 60 Encounter Details Date Type Department Care Team (Late st Contact Info) Description 12/10/2019 2:30 PM CDT - 12/10/2019 11:59 PM T Hospital Encounter [facility] [address] [place] [address] Dari Piña FNP-[place] [address] [place] [address] Sylvie Benitez, ROTARY DRYER OPERATOR Jnt Pain/Knee Discharge Disposition: Home or Self [...] 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 CARDIAC CATHETERIZATION 11/13/2018 ??? FRACTURE SURGERY ??? 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 HERNIA REPAIR ??? KNEE ARTHROPLASTY Bilateral ??? LITHOTRIPSY ??? XA ABLATION 05/19/2016 ??? XA CORONARY INTERVENTION 03/24/2018 SUSTAINABLE AGRICULTURE SPECIALIST PCI-mid RCA Subjective: Diagnosis: R TKA [...] WBAT Objective: Treatment Performed: Therapeutic Exercise - 99246 Minutes Performed: 45 minutes Intervention: - Nustep [...] Heel prop 5# x5' Manual Therapy - 05416 Minutes Performed: 0' Intervention: HELD- IASTM to R quad Neuromuscular Reeducation - 76093 Minutes Performed: 0 minutes Intervention: - Tandem Balance x1 min anya. x2 - Foam balance NBOS x1 min Therapeutic Activities - 17554 Minutes Performed: Modalities Minutes Performed: 0 Intervention: [...] Contact Info) Description 04/25/2024 11:00 AM ADJUNCT PSYCHOLOGY PROFESSOR Appointment [facility] [address] [place] [address] Ti Bonilla MD [address] [place] [phone] 05/23/2024 3:30 PM ADJUNCT PSYCHOLOGY PROFESSOR Office Visit [facility] [address] [place] [address] Jyoti Escobar MD [address] [place] [phone] documented as of this encounter Visit Diagnoses Diagnosis Status post revision of total replacement of right knee- Primary documented in this encounter Care Teams Tree Scout Relationship Specialty Start Date End Date Vernon Mercedes MD [address] [place] [phone] PCP - General FAMILY PRACTICE 10/27/15 12/02/21 Evaristo Allan MD [address] [place] [address] [place] Banking Pin Adjuster CARDIOVASCULAR DISEASE 08/19/16 Raul Santana MD [address] [place] [address] CLINICAL CARDIAC ELECTROPHYSIOLOGY 06/16/17 Danny Blackwell MD [address] [place] [address] ORTHOPAEDIC SURGERY 05/01/19 documented as of this encounter
--- OUTSIDE RECORDS SUMMARY | 2024-04-23 05:18 | XMS_ITS | Encounter Summary ---
Author Organization [facility] Address [address] [place] [address]. 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 Not on [...] Contact Info) Description 04/25/2024 11:[address] INSTRUCTOR Appointment [facility] [address] [place] [address] Ti Bonilla MD [address] [place] [phone] 05/23/2024 3:[address] INSTRUCTOR Office Visit [facility] [address] [place] [phone] Jyoti Escobar MD [address] [place] [phone] documented as of this encounter Visit Diagnoses Not on filedocumented in this encounter Care Teams Gifted Program Teacher Relationship Specialty Start Date End Date Vernon Mercedes MD [address] [place] [phone] PCP - General FAMILY PRACTICE 10/27/15 12/02/21 [place] [address] [place] Electronic Science Teacher CARDIOVASCULAR DISEASE 08/19/16 Raul Santana MD [address] [place] [address] CLINICAL CARDIAC ELECTROPHYSIOLOGY 06/16/17 Danny Blackwell MD [address] [place] [address] ORTHOPAEDIC SURGERY 05/01/19 documented as of this encounter
--- OUTSIDE RECORDS SUMMARY | 2024-04-23 05:18 | XMS_ITS | Encounter Summary ---
Author Organization [facility] Address [address] [place] [address]. [place], [place] [address] [place] [address] Care Team Providers Care Tank Setter Helper Name Role Phone Vernon Mercedes MD Primary Care Provider Evaristo Allan MD Unavailable Unavailabl e Raul Santana MD Unavailable Unavailabl e Danny Blackwell MD Unavailable [phone] Reason for Visit * Reason Comments Jnt Pain/Knee * Physical Medicine (Routine) - Closed Specialty Diagnoses / Procedures Referred By Charito ledbetter Referred To Contact PHYSICAL THERAPY Diagnoses Prosthetic joint implant failure, subsequent encounter Aftercare following right knee joint replacement surgery Dari Piña FNP-[facility] [address] [place] [address] Phone: tel: fax: Referral ID Status Reason Start Date Expiration Date V isits Requested Visits Authorized [id number] Closed Physical Therapy 10/16/2019 11/14/2020 60 60 Encounter Details Date Type Department Care Team (Late st Contact Info) Description 12/03/2019 2:29 PM CDT - 12/03/2019 11:59 PM T Hospital Encounter [facility] [address] [place] [address] Dari Piña FNP-ANDERSON [address] [place] [address] Sylvie Benitez, IC ENGINEER Jnt Pain/Knee Discharge Disposition: Home or Self [...] 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 CARDIAC CATHETERIZATION 11/13/2018 ??? FRACTURE SURGERY ??? 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 HERNIA REPAIR ??? KNEE ARTHROPLASTY Bilateral ??? LITHOTRIPSY ??? XA ABLATION 05/19/2016 ??? XA CORONARY INTERVENTION 03/24/2018 PILING CUTTER PCI-mid RCA Subjective: Diagnosis: R TKA Referring [...] WBAT Objective: Treatment Performed: Therapeutic Exercise - 86158 Minutes Performed: 40 minutes Intervention: - Nustep [...] Heel prop 5# x5' Manual Therapy - 46820 Minutes Performed: 0' Intervention: HELD- IASTM to R quad Neuromuscular Reeducation - 61867 Minutes Performed: 5 minutes Intervention: - Tandem Balance x1 min anya. x2 - Foam balance NBOS x1 min Therapeutic Activities - 79846 Minutes Performed: Modalities Minutes Performed: 15' Intervention: [...] st Contact Info) Description 04/25/2024 11:00 AM PLUG SHAPER HAND Appointment [facility] [address] [place] [address] Ti Bonilla MD [address] [place] [phone] 05/23/2024 3:30 PM PLUG SHAPER HAND Office Visit [facility] [facility] [address] [place] [phone] Jyoti Escobar MD [address] [place] [address] documented as of this encounter Visit Diagnoses Diagnosis Status post revision of total replacement of right knee- Primary documented in this encounter Care Teams Tank Setter Helper Relationship Specialty Start Date End Date Vernon Mercedes MD [address] [place] [address] PCP - General FAMILY PRACTICE 10/27/15 12/02/21 Evaristo Allan MD [address] [place] [address] [place] Therapeutic Mentor CARDIOVASCULAR DISEASE 08/19/16 Raul Santana MD [facility] [place] [address] CLINICAL CARDIAC ELECTROPHYSIOLOGY 06/16/17 Danny Blackwell MD [address] [place] [address] ORTHOPAEDIC SURGERY 05/01/19 documented as of this encounter
--- OUTSIDE RECORDS SUMMARY | 2024-04-23 05:18 | XMS_ITS | Encounter Summary ---
Author Organization [facility] Address [address] [place] [address]. [place], [place] [address] [place] [address] Care Team Providers Care Nephrologist Name Role Phone Vernon Mercedes MD Primary Care Provider [phone] Evaristo Allan MD Unavailable Unavailabl Raul Duran MD Unavailable Unavailabl e Danny Blackwell MD Unavailable [phone] Reason for Visit * Reason Comments Total Knee Arth * Physical Medicine (Routine) - Closed Specialty Diagnoses / Procedures Referred By Charito ledbetter Referred To Contact PHYSICAL THERAPY Diagnoses Prosthetic joint implant failure, subsequent encounter Aftercare following right knee joint replacement surgery Dari Piña FNP-ANDERSON [address] [place] [address] Phone: tel: fax: Referral ID Status Reason Start Date Expiration Date V isits Requested Visits Authorized [id number] Closed Physical Therapy 10/16/2019 11/14/2020 60 60 Encounter Details Date Type Department Care Team (Late st Contact Info) Description 11/19/2019 3:09 PM CDT - 11/19/2019 11:59 PM T Hospital Encounter [facility] [address] [place] [address] Dari Piña FNP-ANDERSON [address] [facility] Long Dotson, ANIMAL BEHAVIORIST [address] [place] [address] Total Knee Arth Discharge Disposition: Home or [...] 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 CARDIAC CATHETERIZATION 11/13/2018 ??? FRACTURE SURGERY ??? 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 HERNIA REPAIR ??? KNEE ARTHROPLASTY Bilateral ??? LITHOTRIPSY ??? XA ABLATION 05/19/2016 ??? XA CORONARY INTERVENTION 03/24/2018 STEAM TABLE WORKER PCI-mid RCA Subjective: Diagnosis: R TKA Referring [...] 102 degrees Treatment Performed: Therapeutic Exercise - 94948 Minutes Performed: 45 minutes Intervention: - Nustep [...] clamshells x 20 B Manual Therapy - 45175 Minutes Performed: 10 Intervention: - IASTM to R quad (see above) Neuromuscular Reeducation - 34503 Minutes Performed: Intervention: HELD- Belgian to R quad with quad sets and SAQ Therapeutic Activities - 68757 Minutes Performed: Modalities Minutes Performed: 15' Intervention: [...] st Contact Info) Description 04/25/2024 11:00 AM STIFF LEG DERRICK OPERATOR Appointment [facility] [address] [place] [address] Ti Bonilla MD [address] [place] [phone] 05/23/2024 3:30 PM STIFF LEG DERRICK OPERATOR Office Visit [facility] [address] [place] [address] Jyoti Escobar MD [address] [place] [address] documented as of this encounter Visit Diagnoses Diagnosis Status post revision of total replacement of right knee- Primary documented in this encounter Care Teams Nephrologist Relationship Specialty Start Date End Date Vernon Mercedes MD [address] [place] [address] PCP - General FAMILY PRACTICE 10/27/15 12/02/21 Evaristo Allan MD [address] [place] [address] Palmer Irrigation Installation Specialist CARDIOVASCULAR DISEASE 08/19/16 Raul Santana MD [address] [place] [address] CLINICAL CARDIAC ELECTROPHYSIOLOGY 06/16/17 Danny Blackwell MD [address] [place] [address] ORTHOPAEDIC SURGERY 05/01/19 documented as of this encounter
--- OUTSIDE RECORDS SUMMARY | 2024-04-23 05:18 | XMS_ITS | Encounter Summary ---
Author Organization [facility] Address [address] [place] [address]. [place], [place] [address] [place] [address] Care Team Providers Care Supervisor Whipped Topping Name Role Phone Vernon Mercedes MD Primary Care Provider [phone] Evaristo Allan MD Unavailable Unavailabl Raul Duran MD Unavailable Unavailabl e Danny Blackwell MD Unavailable [phone] Reason for Visit * Reason Comments Jnt Pain/Knee * Physical Medicine (Routine) - Closed Specialty Diagnoses / Procedures Referred By Charito ledbetter Referred To Contact PHYSICAL THERAPY Diagnoses Prosthetic joint implant failure, subsequent encounter Aftercare following right knee joint replacement surgery Dari Piña, 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 CARDIAC CATHETERIZATION 11/13/2018 ??? FRACTURE SURGERY ??? 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 HERNIA REPAIR ??? KNEE ARTHROPLASTY Bilateral ??? LITHOTRIPSY ??? XA ABLATION 05/19/2016 ??? XA CORONARY INTERVENTION 03/24/2018 PLYWOOD MATCHER PCI-mid RCA Subjective: Diagnosis: R TKA Referring [...] higher. If seat is lower patient requires SHODDY MILL WORKER and multiple attempts with difficulty keeping feet under him. The patient reports that this is normal for him since his first replacement ~20 years ago. Treatment Performed: Therapeutic Exercise - 62294 Minutes Performed: 45 minutes Intervention: - Nustep [...] x10 - re evaluation Manual Therapy - 18554 Minutes Performed: 0' Intervention: HELD- IASTM to R quad Neuromuscular Reeducation - 95235 Minutes Performed: 0' Intervention: - Tandem Balance x1 min anya. x2 - Foam balance NBOS x1 min Therapeutic Activities - 97471 Minutes Performed: - Sit to stand x10 [...] Contact Info) Description 04/25/2024 11:00 AM TOOL CRIB ATTENDANT Appointment [facility] [address] [place] [address] Ti Bonilla MD [address] [place] [phone] 05/23/2024 3:30 PM TOOL CRIB ATTENDANT Office Visit [facility] [address] [place] [address] Jyoti Escobar MD [address] [place] [place] [address] documented as of this encounter Visit Diagnoses Diagnosis Status post revision of total replacement of right knee documented in this encounter Care Teams Supervisor Whipped Topping Relationship Specialty Start Date End Date Vernon Mercedes MD [address] [place] [phone] PCP - General FAMILY PRACTICE 10/27/15 12/02/21 Evaristo Allan MD [address] [place] [address] [place] Supervising Producer CARDIOVASCULAR DISEASE 08/19/16 Raul Santana MD [address] [place] [address] CLINICAL CARDIAC ELECTROPHYSIOLOGY 06/16/17 Danny Blackwell MD [address] [place] [address] ORTHOPAEDIC SURGERY 05/01/19 documented as of this encounter
--- OUTSIDE RECORDS SUMMARY | 2024-04-23 05:18 | XMS_ITS | Encounter Summary ---
Author Organization [facility] Address [address] [place] [address]. [place], [place] [address] [place] [address] Care Team Providers Care End Polisher Name Role Phone Vernon Mercedes MD Primary Care Provider [phone] Evaristo Allan MD Unavailable UnavailRaul Suresh MD Unavailable Unavailabl Danny Lopes MD Unavailable [phone] Encounter Details Date Type Department Care Team (Late st Contact Info) Description 12/12/2019 3:10 PM CDT - 12/12/2019 11:59 PM CDT Hospital Encounter [facility] [address] [place] [address] Vernon Mercedes MD [address] [place] [address] Discharge Disposition: Home or Self [...] 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 Not [...] st Contact Info) Description 04/25/2024 11:00 AM BACKWINDER Appointment [facility] [address] [place] [address] [place] [address] Ti Bonilla MD [address] [place] [phone] 05/23/2024 3:30 PM BACKWINDER Office Visit [facility] [address] [place] [address] Jyoti Escobar MD [address] [place] [address] documented as of this encounter Procedures Procedure Name Priority Date/Time Associated Diagnosis Comments COMPREHENSIVE METABOLIC PANEL Routine 12/12/2019 3:30 PM CDT Hypotension CBC W/DIFF AUTOMATED Routine 12/12/2019 3:30 PM CDT Hypotension documented in this encounter Results * (ABNORMAL) COMPREHENSIVE METABOLIC PANEL (12/12/2019 3:30 PM CDT) SODIUM S/P/B 137 136 - 145 MMOL/L 12/12/2019 4:00 PM CDT [facility] POTASSIUM S/P/B 4.1 3.5 - 5.1 MMOL/L 12/12/2019 4:00 PM CDT [facility] CHLORIDE S/P/B 100 98 - 107 MMOL/L 12/12/2019 4:00 PM CDT [facility] CO2 25.6 21.0 - 32.0 MMOL/L 12/12/2019 4:00 PM CDT [facility] GLUCOSE 186(H) 70 - 99 MG/DL 12/12/2019 4:00 PM CDT [facility] Comment: FASTING GLUCOSE 100 TO 125 MG/DL IS CONSISTENT WITH IMPAIRED FASTING GLUCOSE. FASTING GLUCOSE >125 MG/DL IS CONSISTENT WITH DIABETES. RANDOM GLUCOSE >200 MG/DL WITH HYPERGLYCEMIC SYMPTOMS IS CONSISTENT WITH DIABETES. PER ADA GUIDELINES BUN 17 6 - 24 MG/DL 12/12/2019 4:00 PM CDT [facility] CREATININE S/P/B 1.26 0.70 - 1.30 MG/DL 12/12/2019 4:00 PM CDT [facility] CALCIUM S/P/B 9.4 8.4 - 10.5 MG/DL 12/12/2019 4:00 PM CDT [facility] BILIRUBIN TOTAL S/P/B 0.5 0.2 - 1.0 MG/DL 12/12/2019 4:00 PM CDT [facility] Comment: THIS ASSAY IS NOT RECOMMENDED FOR PATIENTS UNDERGOING TREATMENT WITH ELTROMBOPAG DUE TO THE POTENTIAL FOR FALSELY ELEVATED RESULTS. ALKALINE PHOSPHATASE S/P/B 100 45 - 115 U/L 12/12/2019 4:00 PM CDT [facility] AST 29 15 - 37 U/L 12/12/2019 4:00 PM T [facility] ALT 62 16 - 63 U/L 12/12/2019 4:00 PM T [facility] TOTAL PROTEIN S/P/B 8.0 6.4 - 8.2 G/DL 12/12/2019 4:00 PM T [facility] ALBUMIN S/P/B 3.6 3.4 - 5.0 G/DL 12/12/2019 4:00 PM T [facility] ANION GAP 11.4 5.0 - 15.0 MMOL/L 12/12/2019 4:00 PM T [facility] OSMOLALITY (CALC) 290 MOSM/KG 020 4:00 PM T [facility] Comment:REFERENCE RANGE NOT ESTABLISHED EGFR NON-AFR. AMER. 62(L) >89 ML/MIN/1. 73 M2 12/12/2019 4:00 PM T [facility] EGFR AFR. AMER. 71(L) >89 ML/MIN/1. 73 M2 12/12/2019 4:00 PM T [facility] GFR NOTES GFR REFERENCE S: 12/12/2019 4:00 PM T [facility] Comment: THE ESTIMATED GFR IS [...] CDT Vernon Mercedes MD LABORATORY Final Result [facility] [address] [employer] [address], * (ABNORMAL) CBC W/DIFF AUTOMATED (12/12/2019 3:30 PM CDT) WBC 7.4 4.5 - 10.8 x10'3/uL 12/12/2019 3:41 PM CDT [facility] RBC 4.86 4.50 - 6.10 x10'6/uL 12/12/2019 3:41 PM CDT [facility] HGB 13.3 13.0 - 18.0 G/DL 12/12/2019 3:41 PM CDT [facility] HCT 41.4 37.0 - 52.0 % 12/12/2019 3:41 PM CDT [facility] MCV 85.2 78.0 - 100.0 FL 12/12/2019 3:41 PM CDT [facility] MCH 27.4 27.0 - 31.0 PG 12/12/2019 3:41 PM CDT [facility] MCHC 32.1(L) 33.0 - 36.0 G/DL 12/12/2019 3:41 PM CDT [facility] RDW 14.6(H) 11.5 - 14.5 % 12/12/2019 3:41 PM CDT [facility] PLT 420(H) 150 - 350 x10'3/uL 12/12/2019 3:41 PM CDT [facility] MPV 11.5(H) 7.4 - 10.4 FL 12/12/2019 3:41 PM CDT [facility] DIFFERENTIAL COMMENT NORMAL REFERENCE RANGE NOT ESTABLISHED FOR THE PROPORTIONAL LEUKOCYTE DIFFERENTIAL. 12/12/2019 3:41 PM CDT [facility] SEG NEUTROPHILS 55.2 % 0 3:41 PM CDT [facility] LYMPHOCYTES 30.3 % 12/12/2019 3:41 PM CDT [facility] MONOCYTES 11.2 % 12/12/2019 3:41 PM CDT [facility] EOSINOPHILS 1.9 % 12/12/2019 3:41 PM CDT [facility] BASOPHILS 1.1 % 12/12/2019 3:41 PM CDT [facility] IMMATURE GRANS % 0.3 % 12/12/19 20 3:41 PM CDT [facility] NRBC 0.0 % 12/12/2019 3:41 PM CDT [facility] ABS. NEUTROPHILS 4.09 1.60 - 8.30 x10'3/uL 12/12/2019 3:41 PM CDT [facility] ABS. LYMPHOCYTES 2.24 0.80 - 4.70 x10'3/uL 12/12/2019 3:41 PM CDT [facility] ABS. MONOCYTES 0.83 0.00 - 1.50 x10'3/uL 12/12/2019 3:41 PM CDT [facility] ABS. EOSINOPHILS 0.14 0.00 - 0.40 x10'3/uL 12/12/2019 3:41 PM CDT [facility] ABS. BASOPHILS 0.08 0.00 - 0.20 x10'3/uL 12/12/2019 3:41 PM CDT [facility] ABS. IMMATURE GRANULOCYTES 0.02 0.00 - 0.03 x10'3/uL 12/12/2019 3:41 PM CDT [facility] ABS. NUCLEATED RBC'S 0.00 0.00 x10'3/uL 12/12/2019 3:41 PM CDT [facility] 12/12/2019 3:30 PM CDT Vernon Mercedes MD LABORATORY Final Result [facility] [address] [place] [phone], documented in this encounter Visit Diagnoses Diagnosis Hypotension Hypotension, unspecified documented in this encounter Care Teams End Polisher Relationship Specialty Start Date End Date Vernon Mercedes MD [address] [place] [address] PCP - General FAMILY PRACTICE 10/27/15 12/02/21 Evaristo Allan MD [address] [place] [address] [place] CARDIOVASCULAR DISEASE 08/19/16 Raul Santana MD [address] [place] [address] CLINICAL CARDIAC ELECTROPHYSIOLOGY 06/16/17 Danny Blackwell MD [address] [place] [address] ORTHOPAEDIC SURGERY 05/01/19 documented as of this encounter
--- OUTSIDE RECORDS SUMMARY | 2024-04-23 05:18 | XMS_ITS | Encounter Summary ---
Author Organization [facility] Address [address] [place] [address]. [place], [place] [address] [place] [address] Care Team Providers Care Parachute Taper Name Role Phone Vernon Mercedes MD Primary Care Provider [phone] Evaristo Allan MD Unavailable UnavailRaul Suresh MD Unavailable Unavailabl Danny Lopes MD Unavailable [phone] Encounter Details Date Type Department Care Team (Late st Contact Info) Description 11/08/2019 Orders Only [facility] [address], [address] [address] Danny Blackwell MD [address] [place], [place] [phone] Social History Tobacco Use Types Packs/Day Years [...] st Contact Info) Description 04/25/2024 11:00 AM BRUSH CLEARER SURVEYING Appointment [facility] [address] [place], [place] [phone] Ti Bonilla MD [address] [place] [phone] 05/23/2024 3:30 PM BRUSH CLEARER SURVEYING Office Visit [facility] [address] [place] [phone] Jyoti Escobar MD [address] [place] [phone] documented as of this encounter Visit Diagnoses Diagnosis Aftercare following right knee joint replacement surgery- Primary documented in this encounter Care Teams Parachute Taper Relationship Specialty Start Date End Date Vernon Mercedes MD [address] [place] [phone] PCP - General FAMILY PRACTICE 10/27/15 12/02/21 Evaristo Allan MD [address] [place] [address] [place] Operating Theatre Technician CARDIOVASCULAR DISEASE 08/19/16 Raul Santana MD [address] [place] [address] CLINICAL CARDIAC ELECTROPHYSIOLOGY 06/16/17 Danny Blackwell MD [address] [place] [address] ORTHOPAEDIC SURGERY 05/01/19 documented as of this encounter
--- OUTSIDE RECORDS SUMMARY | 2024-04-23 05:18 | XMS_ITS | Encounter Summary ---
Author Organization [facility] Address [address] [place] [address]. [place], [place] [address] [place] [address] Care Team Providers Care Fire Alarm Installer Name Role Phone Vernon Mercedes MD Primary Care Provider [phone] Evaristo Allan MD Unavailable UnavailRaul Suresh MD Unavailable Unavailabl e Danny Blackwell MD Unavailable [phone] Reason for Visit * Reason Comments Postop Followup Revision right total knee arthroplasty DOS:10/15/2019 Encounter Details Date Type Department Care Team (Latest Contact Info) Description 12/05/2019 3:30 PM CDT Office Visit [address] [address] Danny Blackwell MD [address] [place] [address] Postop Followup (Revision right total knee arthroplasty [...] 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 Paroxysmal atrial fibrillation (CMS/HCC) ??? group home current use of anticoagulant therapy ??? Obstructive sleep apnea ??? Hyperlipidemia ??? Diabetes (CMS/HCC) ??? Coronary artery disease ??? 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 Cardiovascular stress test abnormal ??? Arthritis of knee ??? Derangement of medial meniscus, left ??? Encounter for follow-up examination after completed treatment for conditions other than malignant neoplasm ??? Heartburn ??? Knee pain ??? Mechanical complication of internal orthopedic device, implant or graft, initial encounter ([facility]) ??? Patella-femoral syndrome ??? Pes anserine bursitis ??? Recurrent ventral incisional hernia ??? Abdominal pain ??? Failure of total knee replacement, initial encounter ([facility]) ??? S/P coronary artery stent placement ??? 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 Status post revision [...] CATHETERIZATION 01/04/2018 occluded prox RCA w/well developed mijo-nz-hcuwv collaterals lvef 55-60% ??? CARDIAC CATHETERIZATION 11/13/2018 ??? FRACTURE SURGERY ??? 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 HERNIA REPAIR ??? KNEE ARTHROPLASTY Bilateral ??? LITHOTRIPSY ??? XA ABLATION 05/19/2016 ??? XA CORONARY INTERVENTION 03/24/2018 LIQUOR MAKER PCI-mid RCA Family History Problem Relation Name [...] Not on file Occupational History ??? 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 Financial resource strain: Not [...] file Gets together: Not on file Attends hoahaoism service: Not on file Active member of [...] st Contact Info) Description 04/25/2024 11:00 AM MERRY GO ROUND OPERATOR Appointment [facility] [address] [place] [address] Ti Bonilla MD [address] [place] [phone] 05/23/2024 3:30 PM MERRY GO ROUND OPERATOR Office Visit [facility] [address] [place] [address] Jyoti Escobar MD [address] [place] [address] documented as of this encounter Visit Diagnoses Diagnosis Status post revision of total replacement of right knee- Primary documented in this encounter Care Teams Fire Alarm Installer Relationship Specialty Start Date End Date Vernon Mercedes MD [facility] [place] [address] PCP - General FAMILY PRACTICE 10/27/15 12/02/21 Evaristo Allan MD [address] [place] [address] [facility] Radiological Technologist CARDIOVASCULAR DISEASE 08/19/16 Raul Santana MD [address] [place] [address] CLINICAL CARDIAC ELECTROPHYSIOLOGY 06/16/17 Danny Blackwell MD [address] [place] [address] ORTHOPAEDIC SURGERY 05/01/19 documented as of this encounter
--- OUTSIDE RECORDS SUMMARY | 2024-04-23 05:18 | XMS_ITS | Encounter Summary ---
Author Organization [facility] Address [address] [place] [address]. [place], [place] [address] [place] [address] Care Team Providers Care Emd Special Education Teacher Name Role Phone Vernon Mercedes MD Primary Care Provider [phone] Evaristo Allan MD Unavailable Unavailabl Raul Duran MD Unavailable Unavailabl Danny Lopes MD Unavailable [phone] Encounter Details Date Type Department Care Team (Late st Contact Info) Description 12/12/2019 Orders Only [facility] [address] [place] [address] Vernon Mercedes MD [address] [place] [address] Social History Tobacco Use Types [...] Contact Info) Description 04/25/2024 11:00 AM RN INTAKE Appointment [facility] [address] [place] [address] [place] [address] Ti Bonilla MD [address] [place] [phone] 05/23/2024 3:30 PM RN INTAKE Office Visit [facility] [facility] [address] [place] [address] Jyoti Escobar MD [address] [place] [address] 856111 documented as of this encounter Results * (ABNORMAL) COMPREHENSIVE METABOLIC PANEL (12/12/2019 3:30 PM CDT) SODIUM S/P/B 137 136 - 145 MMOL/L [facility]/12[facility]2019 [facility] POTASSIUM S/P/B 4.1 3.5 - 5.1 MMOL/L 12/12/2019 4:00 PM [facility] CHLORIDE S/P/B 100 98 - 107 MMOL/L 12/12/2019 4:00 PM [facility] CO2 25.6 21.0 - 32.0 MMOL/L 12/12/2019 4:00 PM [facility] GLUCOSE 186(H) 70 - 99 MG/DL 12/12/2019 4:00 PM [facility] Comment: FASTING GLUCOSE 100 TO 125 MG/DL IS CONSISTENT WITH IMPAIRED FASTING GLUCOSE. FASTING GLUCOSE >125 MG/DL IS CONSISTENT WITH DIABETES. RANDOM GLUCOSE >200 MG/DL WITH HYPERGLYCEMIC SYMPTOMS IS CONSISTENT WITH DIABETES. PER ADA GUIDELINES BUN 17 6 - 24 MG/DL 12/12/2019 4:00 PM [facility] CREATININE S/P/B 1.26 0.70 - 1.30 MG/DL 12/12/2019 4:00 PM [facility] CALCIUM S/P/B 9.4 8.4 - 10.5 MG/DL 12/12/2019 4:00 PM [facility] BILIRUBIN TOTAL S/P/B 0.5 0.2 - 1.0 MG/DL 12/12/2019 4:00 PM [facility] Comment: THIS ASSAY IS NOT RECOMMENDED FOR PATIENTS UNDERGOING TREATMENT WITH ELTROMBOPAG DUE TO THE POTENTIAL FOR FALSELY ELEVATED RESULTS. ALKALINE PHOSPHATASE S/P/B 100 45 - 115 U/L 12/12/2019 4:00 PM [facility] AST 29 15 - 37 U/L 12/12/2019 4:00 PM [facility] ALT 62 16 - 63 U/L 12/12/2019 4:00 PM [facility] TOTAL PROTEIN S/P/B 8.0 6.4 - 8.2 G/DL 12/12/2019 4:00 PM [facility] ALBUMIN S/P/B 3.6 3.4 - 5.0 G/DL 12/12/2019 4:00 PM T [facility] ANION GAP 11.4 5.0 - 15.0 MMOL/L 12/12/2019 4:00 PM CDT [facility] OSMOLALITY (CALC) 290 MOSM/KG 020 4:00 PM CDT [facility] Comment:REFERENCE RANGE NOT ESTABLISHED EGFR NON-AFR. AMER. 62(L) >89 ML/MIN/1. 73 M2 12/12/2019 4:00 PM CDT [facility] EGFR AFR. AMER. 71(L) >89 ML/MIN/1. 73 M2 12/12/2019 4:00 PM CDT [facility] GFR NOTES GFR REFERENCE S: 12/12/2019 4:00 PM CDT [facility] Comment: THE ESTIMATED GFR [...] CDT Vernon Mercedes MD LABORATORY Final Result [facility] [address] [email or web address] [address], * (ABNORMAL) CBC W/DIFF AUTOMATED (12/12/2019 3:30 PM CDT) WBC 7.4 4.5 - 10.8 x10'3/uL 12/12/2019 3:41 PM CDT [facility] RBC 4.86 4.50 - 6.10 x10'6/uL 12/12/2019 3:41 PM CDT [facility] HGB 13.3 13.0 - 18.0 G/DL 12/12/2019 3:41 PM CDT [facility] HCT 41.4 37.0 - 52.0 % 12/12/2019 3:41 PM CDT [facility] MCV 85.2 78.0 - 100.0 FL 12/12/2019 3:41 PM CDT [facility] MCH 27.4 27.0 - 31.0 PG 12/12/2019 3:41 PM CDT [facility] MCHC 32.1(L) 33.0 - 36.0 G/DL 12/12/2019 3:41 PM CDT [facility] RDW 14.6(H) 11.5 - 14.5 % 12/12/2019 3:41 PM CDT [facility] PLT 420(H) 150 - 350 x10'3/uL 12/12/2019 3:41 PM CDT [facility] MPV 11.5(H) 7.4 - 10.4 FL 12/12/2019 3:41 PM CDT [facility] DIFFERENTIAL COMMENT NORMAL REFERENCE RANGE NOT ESTABLISHED FOR THE PROPORTIONAL LEUKOCYTE DIFFERENTIAL. 12/12/2019 3:41 PM CDT [facility] SEG NEUTROPHILS 55.2 % 0 3:41 PM CDT [facility] LYMPHOCYTES 30.3 % 12/12/2019 3:41 PM CDT [facility] MONOCYTES 11.2 % 12/12/2019 3:41 PM CDT [facility] EOSINOPHILS 1.9 % 12/12/2019 3:41 PM CDT [facility] BASOPHILS 1.1 % 12/12/2019 3:41 PM CDT [facility] IMMATURE GRANS % 0.3 % 12/12/19 20 3:41 PM CDT [facility] NRBC 0.0 % 12/12/2019 3:41 PM CDT [facility] ABS. NEUTROPHILS 4.09 1.60 - 8.30 x10'3/uL 12/12/2019 3:41 PM CDT [facility] ABS. LYMPHOCYTES 2.24 0.80 - 4.70 x10'3/uL 12/12/2019 3:41 PM CDT [facility] ABS. MONOCYTES 0.83 0.00 - 1.50 x10'3/uL 12/12/2019 3:41 PM CDT [facility] ABS. EOSINOPHILS 0.14 0.00 - 0.40 x10'3/uL 12/12/2019 3:41 PM CDT [facility] ABS. BASOPHILS 0.08 0.00 - 0.20 x10'3/uL 12/12/2019 3:41 PM CDT [facility] ABS. IMMATURE GRANULOCYTES 0.02 0.00 - 0.03 x10'3/uL 12/12/2019 3:41 PM CDT [facility] ABS. NUCLEATED RBC'S 0.00 0.00 x10'3/uL 12/12/2019 3:41 PM CDT [facility] 12/12/2019 3:30 PM CDT Vernon Mercedes MD LABORATORY Final Result [facility] [address] [place] [address], documented in this encounter Visit Diagnoses Diagnosis Hypotension- Primary Hypotension, unspecified documented in this encounter Care Teams Emd Special Education Teacher Relationship Specialty Start Date End Date [place] [address] PCP - General FAMILY PRACTICE 10/27/15 12/02/21 [place] [address] [place] Toe Sewer CARDIOVASCULAR DISEASE 08/19/16 Raul Santana MD [address] [place] [address] CLINICAL CARDIAC ELECTROPHYSIOLOGY 06/16/17 Danny Blackwell MD [address] [place] [phone] ORTHOPAEDIC SURGERY 05/01/19 documented as of this encounter
--- OUTSIDE RECORDS SUMMARY | 2024-04-23 05:18 | XMS_ITS | Encounter Summary ---
Author Organization [facility] Address [address] [place] [address]. 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 [...] Author Status Yes 10/15/2019 4:47 PM Kaylyn Rodriugez RN Active * Do you have difficulty [...] st Contact Info) Description 04/25/2024 11:00 AM SILICA FILTER OPERATOR Appointment [facility] [address] [place] [address] Ti Bonilla MD [address] [place] [phone] 05/23/2024 3:30 PM SILICA FILTER OPERATOR Office Visit [facility] [address] [place] [phone] Jyoti Escobar MD [address] [place] [address] [phone] documented as of this encounter Visit Diagnoses Not on filedocumented in this encounter Care Teams District Administrator Relationship Specialty Start Date End Date Vernon Mercedes MD [address] [place] [phone] PCP - General FAMILY PRACTICE 10/27/15 12/02/21 [place] [address] [place] Electroplater Apprentice CARDIOVASCULAR DISEASE 08/19/16 Raul Santana MD [address] [place] [address] CLINICAL CARDIAC ELECTROPHYSIOLOGY 06/16/17 Danny Blackwell MD [address] [place] [address] ORTHOPAEDIC SURGERY 05/01/19 documented as of this encounter
--- OUTSIDE RECORDS SUMMARY | 2024-04-23 05:18 | XMS_ITS | Encounter Summary ---
Author Organization [facility] Address [address] [place] [address]. 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 [...] st Contact Info) Description 04/25/2024 11:00 AM CRYPTOLOGIC TECHNICIAN TECHNICAL Appointment [facility] [address] [place] [address] Ti Bonilla MD [address] [place] [phone] 05/23/2024 3:30 PM CRYPTOLOGIC TECHNICIAN TECHNICAL Office Visit [facility] [address] [place] [phone] Jyoti Escobar MD [address] [place] [address] [phone] documented as of this encounter Visit Diagnoses Not on filedocumented in this encounter Care Teams Workforce Management Analyst Relationship Specialty Start Date End Date Vernon Mercedes MD [address] [place] [phone] PCP - General FAMILY PRACTICE 10/27/15 12/02/21 [place] [address] [place] Research Editor CARDIOVASCULAR DISEASE 08/19/16 Raul Santana MD [address] [place] [address] CLINICAL CARDIAC ELECTROPHYSIOLOGY 06/16/17 Danny Blackwell MD [address] [place] [address] ORTHOPAEDIC SURGERY 05/01/19 documented as of this encounter
--- OUTSIDE RECORDS SUMMARY | 2024-04-23 05:18 | XMS_ITS | Encounter Summary ---
Author Organization [facility] Address [address] [place] [address]. [place], [place] [address] [place] [address] Care Team Providers Care Home Based Assistant Name Role Phone Vernon Mercedes MD Primary Care Provider Evaristo Allan MD Unavailable Unavailabl Raul Duran MD Unavailable Unavailabl e Danny Blackwell MD Unavailable [phone] Encounter Details Date Type Department Care Team (Late st Contact Info) Description 12/03/2019 Orders Only [facility] [address] [place] [address], [facility] [address] [place] [address] Dianne Viera LPN Social History [...] st Contact Info) Description 04/25/2024 11:00 AM ACTIMIZE ARCHITECT Appointment [facility] [address] [facility] [place] [address] Ti Bonilla MD [address] [place] [phone] 05/23/2024 3:30 PM ACTIMIZE ARCHITECT Office Visit [facility] [address] [place] [address] Jyoti Escobar MD [address] [place] [place] [address] 130281 documented as of this encounter Results * [...] knee documented in this encounter Care Teams Home Based Assistant Relationship Specialty Start Date End Date [place] [address] PCP - General FAMILY PRACTICE 10/27/15 12/02/21 [place] [phone] [place] Pulley Maintainer CARDIOVASCULAR DISEASE 08/19/16 Raul Santana MD [address] [facility] [place] [address] CLINICAL CARDIAC ELECTROPHYSIOLOGY 06/16/17 Danny Blackwell MD [address] [place], [place] [phone] ORTHOPAEDIC SURGERY 05/01/19 documented as of this encounter
--- OUTSIDE RECORDS SUMMARY | 2024-04-23 05:18 | XMS_ITS | Encounter Summary ---
Author Organization [facility] Address [address] [place] [address]. 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 [...] st Contact Info) Description 04/25/2024 11:00 AM TIMING MACHINE OPERATOR Appointment [facility] [address] [place] [address] Ti Bonilla MD [address] [place] [phone] 05/23/2024 3:30 PM TIMING MACHINE OPERATOR Office Visit [facility] [address] [place] [phone] Jyoti Escobar MD [address] [place] [address] [phone] documented as of this encounter Visit Diagnoses Not on filedocumented in this encounter Care Teams Master Fire Control Technician Relationship Specialty Start Date End Date Vernon Mercedes MD [address] [place] [phone] PCP - General FAMILY PRACTICE 10/27/15 12/02/21 [place] [address] [facility] Manager CARDIOVASCULAR DISEASE 08/19/16 Raul Santana MD [address] [place] [address] CLINICAL CARDIAC ELECTROPHYSIOLOGY 06/16/17 Danny Blackwell MD [address] [place] [address] ORTHOPAEDIC SURGERY 05/01/19 documented as of this encounter
--- OUTSIDE RECORDS SUMMARY | 2024-04-23 05:18 | XMS_ITS | Encounter Summary ---
Author Organization [facility] Address [address] [place] [address]. [place], [place] [address] [place] [address] Care Team Providers Care Dental Equipment Technician Name Role Phone Vernon Mercedes MD Primary Care Provider [phone] Evaristo Allan MD Unavailable UnavailRaul Suresh MD Unavailable Unavailabl Danny Lopes MD Unavailable [phone] Encounter Details Date Type Department Care Team (Latest Contact Info) Description 12/05/2019 3:10 PM CDT - 12/05/2019 11:59 PM CDT Hospital Encounter [facility] [address] [place] [address] Danny Blackwell MD [address] [place] [address] Discharge Disposition: Home or Self [...] st Contact Info) Description 04/25/2024 11:00 AM WOOLING MACHINE OPERATOR Appointment [facility] [address] Ti Bonilla MD [address] [place] [phone] 05/23/2024 3:30 PM WOOLING MACHINE OPERATOR Office Visit [facility] [address] [place] [address] Jyoti Escobar MD [address] [place] [address] [phone] documented as of this encounter Procedures Procedure [...] knee documented in this encounter Care Teams Dental Equipment Technician Relationship Specialty Start Date End Date Vernon Mercedes MD [address] [place] [address] PCP - General FAMILY PRACTICE 10/27/15 12/02/21 Evaristo Allan MD [address] [place] [address] [place] Costume Design Teacher CARDIOVASCULAR DISEASE 08/19/16 Raul Santana MD [address] [place] [address] CLINICAL CARDIAC ELECTROPHYSIOLOGY 06/16/17 Danny Blackwell MD [address] [place] [address] ORTHOPAEDIC SURGERY 05/01/19 documented as of this encounter
--- OUTSIDE RECORDS SUMMARY | 2024-04-23 05:18 | XMS_ITS | Encounter Summary ---
Author Organization [facility] Address [address] [place] [address]. [place], [place] [address] [place] [address] Care Team Providers Care Fulfillment Mail Clerk Name Role Phone Vernon Mercedes MD Primary Care Provider [phone] Evaristo Allan MD Unavailable UnavailRaul Suresh MD Unavailable Unavailabl Danny Lopes MD Unavailable [phone] Reason for Visit * Physical Medicine (Routine) - Closed Specialty Diagnoses / Procedures Referred By Charito ledbetter Referred To Contact PHYSICAL THERAPY Diagnoses Prosthetic joint implant failure, subsequent encounter Aftercare following right knee joint replacement surgery Dari Piña FNP-BC [address] [place] [address] Phone: tel: fax: Referral ID Status Reason Start Date Expiration Date V isits Requested Visits Authorized [id number] Closed Physical Therapy 10/16/2019 11/14/2020 60 60 Encounter Details Date Type Department Care Team (Late st Contact Info) Description 11/16/2019 8:52 AM CDT - 11/16/2019 10:07 AM T Hospital Encounter [facility] [address] [place] [address] Dari Piña FNP-BC [address] [place] [address] Keiry Naranjo, VEGETABLE PICKER [address] [place] [address] Discharge Disposition: Home or Self Care (Routine [...] 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 CARDIAC CATHETERIZATION 11/13/2018 ??? FRACTURE SURGERY ??? 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 HERNIA REPAIR ??? KNEE ARTHROPLASTY Bilateral ??? LITHOTRIPSY ??? XA ABLATION 05/19/2016 ??? XA CORONARY INTERVENTION 03/24/2018 DISPLAY FABRICATION SUPERVISOR PCI-mid RCA Subjective: Diagnosis: R TKA [...] 97 degrees Treatment Performed: Therapeutic Exercise - 60566 Minutes Performed: 43 minutes Intervention: - Nustep [...] clamshells x 20 B Manual Therapy - 45209 Minutes Performed: Intervention: - IASTM to R quad (see above) Neuromuscular Reeducation - 68480 Minutes Performed: Intervention: HELD- Martiniquais to R quad with quad sets and SAQ Therapeutic Activities - 80797 Minutes Performed: Modalities Minutes Performed: 15' Intervention: [...] st Contact Info) Description 04/25/2024 11:00 AM CONTENT DIRECTOR Appointment [facility] [address] [place] [address] Ti Bonilla MD [address] [place] [phone] 05/23/2024 3:30 PM CONTENT DIRECTOR Office Visit [facility] [address] [place] [address] Jyoti Escobar MD [address] [place] [address] documented as of this encounter Visit Diagnoses Diagnosis Status post revision of total replacement of right knee documented in this encounter Care Teams Fulfillment Mail Clerk Relationship Specialty Start Date End Date Vernon Mercedes MD [address] [place] [address] PCP - General FAMILY PRACTICE 10/27/15 12/02/21 Evaristo Allan [place] [address] [place] [address] [place] Business Intelligence Consultant CARDIOVASCULAR DISEASE 08/19/16 Raul Santana MD [address] [place] [address] CLINICAL CARDIAC ELECTROPHYSIOLOGY 06/16/17 Danny Blackwell MD [address] [place], [place] [phone] ORTHOPAEDIC SURGERY 05/01/19 documented as of this encounter
--- OUTSIDE RECORDS SUMMARY | 2024-04-23 05:18 | XMS_ITS | Encounter Summary ---
Author Organization [facility] Address [address] [place] [address]. [place], [place] [address] [place] [address] Care Team Providers Care General Production Manager Name Role Phone Vernon Mercedes MD Primary Care Provider [phone] Evaristo Allan MD Unavailable Unavailabl Raul Duran MD Unavailable Unavailabl Danny Lopes MD Unavailable Reason for Visit * Physical Medicine (Routine) - Closed Specialty Diagnoses / Procedures Referred By Charito ledbetter Referred To Contact PHYSICAL THERAPY Diagnoses Prosthetic joint implant failure, subsequent encounter Aftercare following right knee joint replacement surgery Dari Piña FNP-BC [address] [place] [address] Phone: tel: fax: Referral ID Status Reason Start Date Expiration Date V isits Requested Visits Authorized [id number] Closed Physical Therapy 10/16/2019 11/14/2020 60 60 Encounter Details Date Type Department Care Team (Late st Contact Info) Description 12/05/2019 2:30 PM CDT - 12/05/2019 3:09 PM CDT Hospital Encounter [facility] [address] [place] [address] Dari Piña FNP-BC [address] [place] [address] Keiry Naranjo, MELTER HELPER [address] [place] [address] Discharge Disposition: Home or Self Care (Routine [...] 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 CARDIAC CATHETERIZATION 11/13/2018 ??? FRACTURE SURGERY ??? 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 HERNIA REPAIR ??? KNEE ARTHROPLASTY Bilateral ??? LITHOTRIPSY ??? XA ABLATION 05/19/2016 ??? XA CORONARY INTERVENTION 03/24/2018 STEEL WHEEL ENGRAVER PCI-mid RCA Subjective: Diagnosis: R TKA Referring [...] 107 degrees Treatment Performed: Therapeutic Exercise - 06762 Minutes Performed: 45 minutes Intervention: - Nustep [...] Heel prop 5# x5' Manual Therapy - 56844 Minutes Performed: 0' Intervention: HELD- IASTM to R quad Neuromuscular Reeducation - 09995 Minutes Performed: 5 minutes Intervention: - Tandem Balance x1 min anya. x2 - Foam balance NBOS x1 min Therapeutic Activities - 07598 Minutes Performed: Modalities Minutes Performed: 0' Intervention: [...] Contact Info) Description 04/25/2024 11:00 AM SENIOR PRODUCT MARKETING MANAGER Appointment [facility] [address] [place] [address] Ti Bonilla MD [address] [place] [phone] 05/23/2024 3:30 PM SENIOR PRODUCT MARKETING MANAGER Office Visit [facility] [address] [place] [address] Jyoti Escobar MD [address] [place] [address] [phone] documented as of this encounter Visit Diagnoses Diagnosis Status post revision of total replacement of right knee documented in this encounter Care Teams General Production Manager Relationship Specialty Start Date End Date Vernon Mercedes MD [address] [place] [address] PCP - General FAMILY PRACTICE 10/27/15 12/02/21 Evaristo Allan MD [address] [place] [address] [place] Shank Archer CARDIOVASCULAR DISEASE 08/19/16 Raul Santana MD [address] [place] [address] CLINICAL CARDIAC ELECTROPHYSIOLOGY 06/16/17 Danny Blackwell MD [address] [place] [address] ORTHOPAEDIC SURGERY 05/01/19 documented as of this encounter
--- OUTSIDE RECORDS SUMMARY | 2024-04-23 05:18 | XMS_ITS | Encounter Summary ---
Author Organization [facility] Address [address] [place] [address]. [place], [place] [address] [place] [address] Care Team Providers Care Sumatra Opener Name Role Phone Vernon Mercedes MD Primary Care Provider [phone] Evaristo Allan MD Unavailable Unavailabl e Raul Santana MD Unavailable Unavailabl e Danny Blackwell MD Unavailable [phone] Reason for Visit * Reason Comments Jnt Pain/Knee * Physical Medicine (Routine) - Closed Specialty Diagnoses / Procedures Referred By Charito ledbetter Referred To Contact PHYSICAL THERAPY Diagnoses Prosthetic joint implant failure, subsequent encounter Aftercare following right knee joint replacement surgery Dari Piña FNP-ANDERSON [address] [place] [address] Phone: tel: fax: Referral ID Status Reason Start Date Expiration Date V isits Requested Visits Authorized [id number] Closed Physical Therapy 10/16/2019 11/14/2020 60 60 Encounter Details Date Type Department Care Team (Late st Contact Info) Description 12/07/2019 9:45 AM CDT - 12/07/2019 11:59 PM T Hospital Encounter [facility] [address] [place] [address] Dari Piña FNP-ANDERSON [address] [place] [address] Rossy Cardenas, DPT Jnt Pain/Knee Discharge Disposition: [...] CATHETERIZATION 01/04/2018 occluded prox RCA w/well developed fwon-yy-tpxkw collaterals lvef 55-60% ??? CARDIAC CATHETERIZATION 11/13/2018 ??? FRACTURE SURGERY ??? 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 HERNIA REPAIR ??? KNEE ARTHROPLASTY Bilateral ??? LITHOTRIPSY ??? XA ABLATION 05/19/2016 ??? XA CORONARY INTERVENTION 03/24/2018 LOSS MITIGATION SPECIALIST PCI-mid RCA Subjective: Diagnosis: R TKA [...] WBAT Objective: Treatment Performed: Therapeutic Exercise - 36290 Minutes Performed: 43 minutes Intervention: - Nustep [...] Heel prop 5# x5' Manual Therapy - 32074 Minutes Performed: 0' Intervention: HELD- IASTM to R quad Neuromuscular Reeducation - 35661 Minutes Performed: 0 minutes Intervention: - Tandem Balance x1 min anya. x2 - Foam balance NBOS x1 min Therapeutic Activities - 91943 Minutes Performed: Modalities Minutes Performed: 15' Intervention: [...] st Contact Info) Description 04/25/2024 11:00 AM SINGLE STROKE PREFORMER Appointment [facility] [place] [address] Ti Bonilla MD [address] [place] [phone] 05/23/2024 3:30 PM SINGLE STROKE PREFORMER Office Visit [facility] [address] [place] [address] Jyoti Escobar MD [address] [place] [address] documented as of this encounter Visit Diagnoses Diagnosis Status post revision of total replacement of right knee documented in this encounter Care Teams Sumatra Opener Relationship Specialty Start Date End Date Vernon Mercedes MD [address] [place] [address] PCP - General FAMILY PRACTICE 10/27/15 12/02/21 Evaristo Allan MD [address] [place] [address] Bentley Combustion Analyst CARDIOVASCULAR DISEASE 08/19/16 Raul Santana MD [address] [place] [address] CLINICAL CARDIAC ELECTROPHYSIOLOGY 06/16/17 Danny Blackwell MD [address] [place] [address] ORTHOPAEDIC SURGERY 05/01/19 documented as of this encounter
--- OUTSIDE RECORDS SUMMARY | 2024-04-23 05:18 | XMS_ITS | Encounter Summary ---
Author Organization [facility] Address [address] [place] [address]. [place], [place] [address] [place] [address] Care Team Providers Care Bar Host Name Role Phone Vernon Mercedes MD Primary Care Provider [phone] Evaristo lAlan MD Unavailable Unavailabl Raul Duran MD Unavailable Unavailabl Danny Lopes MD Unavailable [phone] Encounter Details Date Type Department Care [...] st Contact Info) Description 04/25/2024 11:00 AM PLAN NURSE Appointment [facility] [address] [place] [address] Ti Bonilla MD [address] [place] [phone] 05/23/2024 3:30 PM PLAN NURSE Office Visit [facility] [address] [place] [address] Jyoti Escobar MD [address] [place] [address]6031 documented as of this encounter Visit Diagnoses Not on filedocumented in this encounter Care Teams Bar Host Relationship Specialty Start Date End Date Vernon Mercedes MD [address] [place] [phone] PCP - General FAMILY PRACTICE 10/27/15 12/02/21 [place] [address] [place] [employer] Repairer CARDIOVASCULAR DISEASE 08/19/16 Raul Santana MD [address] [place] [address] CLINICAL CARDIAC ELECTROPHYSIOLOGY 06/16/17 Danny Blackwell MD [address] [place] [address] ORTHOPAEDIC SURGERY 05/01/19 documented as of this encounter
--- OUTSIDE RECORDS SUMMARY | 2024-04-23 05:18 | XMS_ITS | Encounter Summary ---
Author Organization [facility] Address [address] [place] [address]. [place], [place] [address] [place] [address] Care Team Providers Care Hip Hop Artist Name Role Phone Vernon Mercedes MD Primary Care Provider [phone] Evaristo Allan MD Unavailable UnavailRaul Suresh MD Unavailable Unavailabl Danny Lopes MD Unavailable [phone] Reason for Visit * Physical Medicine (Routine) - Closed Specialty Diagnoses / Procedures Referred By Charito ledbetter Referred To Contact PHYSICAL THERAPY Diagnoses Prosthetic joint implant failure, subsequent encounter Aftercare following right knee joint replacement surgery Dari Piña FNP-BC [address] [place] [address] Phone: tel: fax: Referral ID Status Reason Start Date Expiration Date V isits Requested Visits Authorized [id number] Closed Physical Therapy 10/16/2019 11/14/2020 60 60 Encounter Details Date Type Department Care Team (Late st Contact Info) Description 11/26/2019 9:39 AM CDT - 11/26/2019 11:59 PM T Hospital Encounter [facility] [address] [place] [address] Dari Piña FNP-BC [address] [place] [address] Keiry Naranjo, SILK TOP HAT BODY MAKER [address] [place] [address] Discharge Disposition: Home or Self Care (Routine [...] 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 CARDIAC CATHETERIZATION 11/13/2018 ??? FRACTURE SURGERY ??? 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 HERNIA REPAIR ??? KNEE ARTHROPLASTY Bilateral ??? LITHOTRIPSY ??? XA ABLATION 05/19/2016 ??? XA CORONARY INTERVENTION 03/24/2018 SECOND CRUSHER PCI-mid RCA Subjective: Diagnosis: R TKA Referring [...] 102 degrees Treatment Performed: Therapeutic Exercise - 63174 Minutes Performed: 40 minutes Intervention: - Nustep [...] Heel prop 5# x5' Manual Therapy - 67693 Minutes Performed: 0' Intervention: HELD- IASTM to R quad Neuromuscular Reeducation - 11615 Minutes Performed: Intervention: N- Tandem Balance x1 min anya. Therapeutic Activities - 73031 Minutes Performed: Modalities Minutes Performed: 15' Intervention: [...] st Contact Info) Description 04/25/2024 11:00 AM COMBINATION WINDOW INSTALLER Appointment [facility] [address] [place], [place] [address] [address] Ti Bonilla MD [address] [place] [phone] 05/23/2024 3:30 PM COMBINATION WINDOW INSTALLER Office Visit [facility] [address] [place] [address] Jyoti Escobar MD [address] [place] [address] 673651 documented as of this encounter Visit Diagnoses Diagnosis Status post revision of total replacement of right knee documented in this encounter Care Teams Hip Hop Artist Relationship Specialty Start Date End Date Veronn Mercedes MD [address] [place] [address] PCP - General FAMILY PRACTICE 10/27/15 12/02/21 Evaristo Allan MD [address] [place] [address] [place] Promotional Marketing Analyst CARDIOVASCULAR DISEASE 08/19/16 Raul Santana MD [facility] [place] [address] CLINICAL CARDIAC ELECTROPHYSIOLOGY 06/16/17 Danny Blackwell MD [address] [place] [address] ORTHOPAEDIC SURGERY 05/01/19 documented as of this encounter
--- OUTSIDE RECORDS SUMMARY | 2024-04-23 05:18 | XMS_ITS | Encounter Summary ---
Author Organization [facility] Address [address] [place] [address]. 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 Not [...] st Contact Info) Description 04/25/2024 11:00 AM REPOSSESSION AGENT Appointment [facility] [address] [place] [address] Ti Bonilla MD [address] [place] [phone] 05/23/2024 3:30 PM REPOSSESSION AGENT Office Visit [facility] [address] [place] [address] Jyoti Escobar MD [address] [place] [address]74011 documented as of this encounter Visit Diagnoses Not on filedocumented in this encounter Care Teams Director Of Transportation Relationship Specialty Start Date End Date Vernon Mercedes MD [address] [place] [phone] PCP - General FAMILY PRACTICE 10/27/15 12/02/21 [place] [address] [place] Full Time CARDIOVASCULAR DISEASE 08/19/16 Raul Santana MD [address] [place] [address] CLINICAL CARDIAC ELECTROPHYSIOLOGY 06/16/17 Danny Blackwell MD [address] [place] [address] ORTHOPAEDIC SURGERY 05/01/19 documented as of this encounter
--- OUTSIDE RECORDS SUMMARY | 2024-04-23 05:18 | XMS_ITS | Encounter Summary ---
Author Organization [facility] Address [address] [place] [address]. 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 [...] st Contact Info) Description 04/25/2024 11:00 AM HEALTHCARE PROJECT MANAGER Appointment [facility] [address] [place] [address] Ti Bonilla MD [address] [place] [phone] 05/23/2024 3:30 PM HEALTHCARE PROJECT MANAGER Office Visit [facility] [address] [place] [address] Jyoti Escobar MD [address] [place] [address] 800901 documented as of this encounter Visit Diagnoses Not on filedocumented in this encounter Care Teams Acting Teacher Relationship Specialty Start Date End Date Vernon Mercedes MD [address] [place] [phone] PCP - General FAMILY PRACTICE 10/27/15 12/02/21 [place] [address] [place] [facility] Nurse CARDIOVASCULAR DISEASE 08/19/16 Raul Santana MD [address] [place] [address] CLINICAL CARDIAC ELECTROPHYSIOLOGY 06/16/17 Danny Blackwell MD [address] [place] [address] ORTHOPAEDIC SURGERY 05/01/19 documented as of this encounter
--- OUTSIDE RECORDS SUMMARY | 2024-04-23 05:18 | XMS_ITS | Encounter Summary ---
Author Organization [facility] Address [address] [place] [address]. [place], [place] [address] [place] [address] Care Team Providers Care Concrete Bucket Hooker Name Role Phone Vernon Mercedes MD Primary Care Provider [phone] Elza Allan MD Unavailable UnavailRaul Suresh MD Unavailable Unavailabl Danny Lopes MD Unavailable [phone] Encounter Details Date Type Department Care Team (Latest Contact Info) Description 11/16/2019 10:08 AM CDT - 11/16/2019 11:59 PM CDT Hospital Encounter [facility] [address] [place] [address] Danny Blackwell MD [address] [place] [address] Discharge Disposition: Home or Self [...] st Contact Info) Description 04/25/2024 11:00 AM BINGO USHER Appointment [facility] [address] [place] [address] Ti Bonilla MD [address] [place] [phone] 05/23/2024 3:30 PM BINGO USHER Office Visit [facility] [address] [place] [phone] Jyoti Escobar MD [address] [place] [address] documented as of this encounter Procedures Procedure [...] Failure of total knee replacement, initial encounter ([facility] documented in this encounter Care Teams Concrete Bucket Hooker Relationship Specialty Start Date End Date Vernon Mercedes MD [address] [place] [address] PCP - General FAMILY PRACTICE 10/27/15 12/02/21 Elza Allan MD [address] [place] [address] [place] Novelty Chain Maker CARDIOVASCULAR DISEASE 08/19/16 Raul Santana MD [address] [place] [address] CLINICAL CARDIAC ELECTROPHYSIOLOGY 06/16/17 Danny Blackwell MD [address] [place] [address] ORTHOPAEDIC SURGERY 05/01/19 documented as of this encounter
--- OUTSIDE RECORDS SUMMARY | 2024-04-23 05:18 | XMS_ITS | Encounter Summary ---
Author Organization [facility] Address [address] [place] [address]. 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 Not on [...] st Contact Info) Description 04/25/2024 11:00 AM RATTLESNAKE FARMER Appointment [facility] [address] [place] [address] Ti Bonilla MD [address] [place] [phone] 05/23/2024 3:30 PM RATTLESNAKE FARMER Office Visit [facility] [address] [place] [address] Jyoti Escobar MD [address] [place] [address] 685591 documented as of this encounter Visit Diagnoses Not on filedocumented in this encounter Care Teams Cylinder Grinder Relationship Specialty Start Date End Date Vernon Mercedes MD [address] [place] [address] PCP - General FAMILY PRACTICE 10/27/15 12/02/21 [place] [address] [place] R[facility] Neonatal CARDIOVASCULAR DISEASE 08/19/16 Raul Santana MD [address] [place] [address] CLINICAL CARDIAC ELECTROPHYSIOLOGY 06/16/17 Danny Blackwell MD [address] [place] [address] ORTHOPAEDIC SURGERY 05/01/19 documented as of this encounter
--- OUTSIDE RECORDS SUMMARY | 2024-04-23 05:18 | XMS_ITS | Encounter Summary ---
Author Organization [facility] Address [address] [place] [address]. [place], [place] [address] [place] [address] Care Team Providers Care Demand Generation Manager Name Role Phone Vernon Mercedes MD Primary Care Provider [phone] Evaristo Allan MD Unavailable UnavailRaul Suresh MD Unavailable Unavailabl Danny Lopes MD Unavailable [phone] Reason for Visit * Physical Medicine (Routine) - Closed Specialty Diagnoses / Procedures Referred By Charito ledbetter Referred To Contact PHYSICAL THERAPY Diagnoses Prosthetic joint implant failure, subsequent encounter Aftercare following right knee joint replacement surgery Dari Piña FNP-BC [address] [place] [address] Phone: tel: fax: Referral ID Status Reason Start Date Expiration Date V isits Requested Visits Authorized [id number] Closed Physical Therapy 10/16/2019 11/14/2020 60 60 Encounter Details Date Type Department Care Team (Late st Contact Info) Description 12/21/2019 10:15 AM CDT - 12/21/2019 11:59 PM T Hospital Encounter [facility] [address] [place] [address] Dari Piña FNP-BC [address] [place] [address] Keiry Naranjo, BIOMEDICAL PHOTOGRAPHER [address] [place] [address] Discharge Disposition: Home or Self Care (Routine [...] 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 CARDIAC CATHETERIZATION 11/13/2018 ??? FRACTURE SURGERY ??? 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 HERNIA REPAIR ??? KNEE ARTHROPLASTY Bilateral ??? LITHOTRIPSY ??? XA ABLATION 05/19/2016 ??? XA CORONARY INTERVENTION 03/24/2018 ENVIRONMENTAL ENGINEERING TECHNICIAN PCI-mid RCA Subjective: Diagnosis: R TKA [...] WBAT Objective: Treatment Performed: Therapeutic Exercise - 42230 Minutes Performed: 53 minutes Intervention: - Nustep WL2 x6 mins UE/LE 3# cuff weight on during standing activity: N- weighted hip kicks abd/flx N- weighted marching - Step Ups 8 x15 fw (moderate cueing for conscious foot placement/prevention of ER) - Second step hamstring/knee flexion stretch 10/10 N- Seated SLR x10 - SAQ 3# x20 - SLR x20 Manual Therapy - 30102 Minutes Performed: 0' Intervention: HELD- IASTM to R quad Neuromuscular Reeducation - 20819 Minutes Performed: 0' Intervention: - Tandem Balance x1 min anya. x2 - Foam balance NBOS x1 min Therapeutic Activities - 89870 Minutes Performed: N- Sit to stand x10 [...] st Contact Info) Description 04/25/2024 11:00 AM SLITTER AND REWINDER MACHINE OPERATOR Appointment [facility] [address] [place], [place] 34[address] Ti Bonilla MD [address] [place] [phone] 05/23/2024 3:30 PM SLITTER AND REWINDER MACHINE OPERATOR Office Visit [facility] [address] [place] [phone] Jyoti Escobar MD [address] [place] [address]14451 documented as of this encounter Visit Diagnoses Diagnosis Status post revision of total replacement of right knee documented in this encounter Care Teams Demand Generation Manager Relationship Specialty Start Date End Date Vernon Mercedes MD [address] [place] [address] PCP - General FAMILY PRACTICE 10/27/15 12/02/21 Evaristo Allan MD [address] [place] [address] [place] Vice President Of Recruiting CARDIOVASCULAR DISEASE 08/19/16 Raul Santana MD [address] [place] [address] CLINICAL CARDIAC ELECTROPHYSIOLOGY 06/16/17 Danny Blackwell MD [address] [place], [place] [phone] ORTHOPAEDIC SURGERY 05/01/19 documented as of this encounter
--- OUTSIDE RECORDS SUMMARY | 2024-04-23 05:18 | XMS_ITS | Encounter Summary ---
Author Organization [facility] Address [address] [place] [address]. 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 [...] st Contact Info) Description 04/25/2024 11:00 AM EDUCATIONAL RESOURCE COORDINATOR Appointment [facility] [address] [place] [address] [place] [address] Ti Bonilla MD [address] [place] [phone] 05/23/2024 3:30 PM EDUCATIONAL RESOURCE COORDINATOR Office Visit [facility] [address] [place] [address] Jyoti Escobar MD [address] [place] [address]90901 documented as of this encounter Results * [...] (CMS/HCC) documented in this encounter Care Teams Go Cart Mechanic Relationship Specialty Start Date End Date Vernon Mercedes MD [address] [place] [address] PCP - General FAMILY PRACTICE 10/27/15 12/02/21 Elza Allan MD [address] [place] [address] Irwin Development Coordinator CARDIOVASCULAR DISEASE 08/19/16 Raul Santana MD [address] [place] [address] CLINICAL CARDIAC ELECTROPHYSIOLOGY 06/16/17 Danny Blackwell MD [address]25 [place] [address] ORTHOPAEDIC SURGERY 05/01/19 documented as of this encounter
--- OUTSIDE RECORDS SUMMARY | 2024-04-23 05:18 | XMS_ITS | Encounter Summary ---
Author Organization [facility] Address [address] [place] [address]. [place], [place] [address] [place] [address] Care Team Providers Care Zoogler Name Role Phone Vernon Mercedes MD Primary Care Provider [phone] Evaristo Allan MD Unavailable Unavailabl Raul Duran MD Unavailable Unavailabl Danny Lopes MD Unavailable [phone] Encounter Details Date Type Department Care [...] Contact Info) Description 04/25/2024 11:00 AM MANAGER INVESTIGATIONS Appointment [facility] [address] [place] [address] Ti Bonilla MD [address] [place] [phone] 05/23/2024 3:30 PM MANAGER INVESTIGATIONS Office Visit [facility] [address] [place] [address] Jyoti Escobar MD [address] [place] [phone] documented as of this encounter Visit Diagnoses Not on filedocumented in this encounter Care Teams Zoogler Relationship Specialty Start Date End Date Vernon Mercedes MD [address] [place] [phone] PCP - General FAMILY PRACTICE 10/27/15 12/02/21 [place] [address] [place] Risk Control Analyst CARDIOVASCULAR DISEASE 08/19/16 Raul Santana MD [address] [place] [address] CLINICAL CARDIAC ELECTROPHYSIOLOGY 06/16/17 Danny Blackwell MD [address] [place] [address] ORTHOPAEDIC SURGERY 05/01/19 documented as of this encounter
--- OUTSIDE RECORDS SUMMARY | 2024-04-23 05:18 | XMS_ITS | Encounter Summary ---
Author Organization [facility] Address [address] [place] [address]. 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 [...] st Contact Info) Description 04/25/2024 11:00 AM GUEST RELATIONS REPRESENTATIVE Appointment [facility] [address] [place] [address] Ti Bonilla MD [address] [place] [address] 05/23/2024 3:30 PM GUEST RELATIONS REPRESENTATIVE Office Visit [facility] [address] [place] [address] Jyoti Escobar MD [address] [place] [address] 125751 documented as of this encounter Visit Diagnoses Not on filedocumented in this encounter Care Teams Meteorological Equipment Repairer Relationship Specialty Start Date End Date Vernon Mercedes MD [address] [place] [phone] PCP - General FAMILY PRACTICE 10/27/15 12/02/21 [place] [address] [place] Film Examiner CARDIOVASCULAR DISEASE 08/19/16 Raul Santana MD [address] [place] [address] CLINICAL CARDIAC ELECTROPHYSIOLOGY 06/16/17 Danny Blackwell MD [address] [place] [address] ORTHOPAEDIC SURGERY 05/01/19 documented as of this encounter
--- OUTSIDE RECORDS SUMMARY | 2024-04-23 05:18 | XMS_ITS | Encounter Summary ---
Author Organization [facility] Address [address] [place] [address]. [place], [place] [address] [place] [address] Care Team Providers Care Retail Wireless Sales Representative Name Role Phone Vernon Mercedes MD Primary Care Provider [phone] Evaristo Allan MD Unavailable Unavailabl Raul Duran MD Unavailable Unavailabl e Danny Blackwell MD Unavailable [phone] Reason for Visit * Reason Comments Total Knee Arth * Physical Medicine (Routine) - Closed Specialty Diagnoses / Procedures Referred By Charito ledbetter Referred To Contact PHYSICAL THERAPY Diagnoses Prosthetic joint implant failure, subsequent encounter Aftercare following right knee joint replacement surgery Dari Piña, PRESCHOOL TEACHER AIDE-BC [address] [place] [address] Phone: tel: fax: Referral ID Status Reason Start Date Expiration Date V isits Requested Visits Authorized [id number] Closed Physical Therapy 10/16/2019 11/14/2020 60 60 Encounter Details Date Type Department Care Team (Late st Contact Info) Description 12/31/2019 2:30 PM CDT - 12/31/2019 11:59 PM T Hospital Encounter [facility] [address] [place] [address] Danny Blackwell MD [address] [place] [id number] [place], [facility] [address] [place] [place] [phone] Total Knee Arth Discharge Disposition: Home or [...] this encounter Progress Notes * Long Dotson, SERVICE DESK DIRECTOR - 12/31/2019 2:49 PM CDT [facility] PHYSICAL [...] CATHETERIZATION 01/04/2018 occluded prox RCA w/well developed gdye-ts-zpnxc collaterals lvef 55-60% ??? CARDIAC CATHETERIZATION 11/13/2018 ??? FRACTURE SURGERY ??? 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 HERNIA REPAIR ??? KNEE ARTHROPLASTY Bilateral ??? LITHOTRIPSY ??? XA ABLATION 05/19/2016 ??? XA CORONARY INTERVENTION 03/24/2018 SNOW REMOVER PCI-mid RCA Subjective: Diagnosis: R TKA Referring [...] WBAT Objective: Treatment Performed: Therapeutic Exercise - 94401 Minutes Performed: 40 minutes Intervention: - Nustep [...] x20 - SLR x20 Manual Therapy - 94597 Minutes Performed: 0' Intervention: HELD- IASTM to R quad Neuromuscular Reeducation - 66697 Minutes Performed: 0' Intervention: - Tandem Balance x1 min anya. x2 - Foam balance NBOS x1 min Therapeutic Activities - 87233 Minutes Performed: - Sit to stand x10 [...] Contact Info) Description 04/25/2024 11:00 AM SOCIAL WORKER CLINICAL Appointment [facility] [place] [address] Ti Bonilla MD [address] [place] [address] 05/23/2024 3:30 PM SOCIAL WORKER CLINICAL Office Visit [facility] [address] [place] [address] Jyoti Escobar MD [address] [place] [address] 512851 documented as of this encounter Visit Diagnoses Diagnosis Status post revision of total replacement of right knee- Primary documented in this encounter Care Teams Retail Wireless Sales Representative Relationship Specialty Start Date End Date Vernon Mercedes MD [address] [place] [phone] PCP - General FAMILY PRACTICE 10/27/15 12/02/21 Evaristo Allan MD [address] [place] [address] [place] Residential Real Estate Agent CARDIOVASCULAR DISEASE 08/19/16 Raul Santana MD [address] [place] [address] CLINICAL CARDIAC ELECTROPHYSIOLOGY 06/16/17 Danny Blackwell MD [address] [facility] [place] [address] ORTHOPAEDIC SURGERY 05/01/19 documented as of this encounter
--- OUTSIDE RECORDS SUMMARY | 2024-04-23 05:18 | XMS_ITS | Encounter Summary ---
Author Organization [facility] Address [address] [place] [address]. [place], [place] [address] [place] [address] Care Team Providers Care Rotating Equipment Specialist Name Role Phone Vernon Mercedes MD Primary Care Provider [phone] Evaristo Allan MD Unavailable UnavailRaul Suresh MD Unavailable Unavailabl Danny Lopes MD Unavailable [phone] Reason for Visit * Physical Medicine (Routine) - Closed Specialty Diagnoses / Procedures Referred By Charito ledbetter Referred To Contact PHYSICAL THERAPY Diagnoses Prosthetic joint implant failure, subsequent encounter Aftercare following right knee joint replacement surgery Dari Piña FNP-BC [address] [place] [address] Phone: tel: fax: Referral ID Status Reason Start Date Expiration Date V isits Requested Visits Authorized [id number] Closed Physical Therapy 10/16/2019 11/14/2020 60 60 Encounter Details Date Type Department Care Team (Late st Contact Info) Description 11/30/2019 7:45 AM CDT - 11/30/2019 11:59 PM T Hospital Encounter [facility] [address] [place] [address] Dari Piña FNP-BC [address] [place] [address] Keiry Naranjo, MORTGAGE COORDINATOR [address] [place] [address] Discharge Disposition: Home or Self Care (Routine [...] 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 CARDIAC CATHETERIZATION 11/13/2018 ??? FRACTURE SURGERY ??? 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 HERNIA REPAIR ??? KNEE ARTHROPLASTY Bilateral ??? LITHOTRIPSY ??? XA ABLATION 05/19/2016 ??? XA CORONARY INTERVENTION 03/24/2018 C++ QUANT DEVELOPER PCI-mid RCA Subjective: Diagnosis: R TKA [...] WBAT Objective: Treatment Performed: Therapeutic Exercise - 80212 Minutes Performed: 35 minutes Intervention: - Nustep [...] Heel prop 5# x5' Manual Therapy - 10302 Minutes Performed: 0' Intervention: HELD- IASTM to R quad Neuromuscular Reeducation - 17685 Minutes Performed: Intervention: - Tandem Balance x1 min anya. N- Foam balance NBOS x1 min Therapeutic Activities - 37764 Minutes Performed: Modalities Minutes Performed: 15' Intervention: [...] Contact Info) Description 04/25/2024 11:00 AM MANAGER BRANCH Appointment [facility] [place] [address] Ti Bonilla MD [address] [place] [phone] 05/23/2024 3:30 PM MANAGER BRANCH Office Visit [facility] [address] [place] [address] Jyoti Escobar MD [address] [place] [address] documented as of this encounter Visit Diagnoses Diagnosis Status post revision of total replacement of right knee documented in this encounter Care Teams Rotating Equipment Specialist Relationship Specialty Start Date End Date Vernon Mercedes MD [address] [place] [address] PCP - General FAMILY PRACTICE 10/27/15 12/02/21 Evaristo Allan MD [address] [place] [address] [place] Staff Physician CARDIOVASCULAR DISEASE 08/19/16 Raul Santana MD [address] [place] [address] CLINICAL CARDIAC ELECTROPHYSIOLOGY 06/16/17 Danny Blackwell MD [address] [place] [address] ORTHOPAEDIC SURGERY 05/01/19 documented as of this encounter
--- OUTSIDE RECORDS SUMMARY | 2024-04-23 05:18 | XMS_ITS | Encounter Summary ---
Author Organization [facility] Address [address] [place] [address]. [place], [place] [address] [place] [address] Care Team Providers Care Merchant Tailor Name Role Phone Vernon Mercedes MD Primary Care Provider [phone] Evaristo Allan MD Unavailable Unavailabl Raul Duran MD Unavailable Unavailabl Danny Lopes MD Unavailable [phone] Encounter Details Date Type Department Care [...] st Contact Info) Description 04/25/2024 11:00 AM ETCHER AIRCRAFT Appointment [facility] [address] [place] [address] Ti Bonilla MD [address] [place] [phone] 05/23/2024 3:30 PM ETCHER AIRCRAFT Office Visit [facility] [address] [place] [phone] Jyoti Escobar MD [address] [place] [phone] documented as of this encounter Visit Diagnoses Not on filedocumented in this encounter Care Teams Merchant Tailor Relationship Specialty Start Date End Date Vernon Mercedes MD [address] [place] [phone] PCP - General FAMILY PRACTICE 10/27/15 12/02/21 [place] [address] [place] Remittance Clerk CARDIOVASCULAR DISEASE 08/19/16 Raul Santana MD [address] [place] [address] CLINICAL CARDIAC ELECTROPHYSIOLOGY 06/16/17 Danny Blackwell MD [address] [place] [address] ORTHOPAEDIC SURGERY 05/01/19 documented as of this encounter
--- OUTSIDE RECORDS SUMMARY | 2024-04-23 05:18 | XMS_ITS | Encounter Summary ---
Author Organization [facility] Address [address] [place] [address]. [place], [place] [address] [place] [address] Care Team Providers Care Television Installer Name Role Phone Vernon Mercedes MD Primary Care Provider Evaristo Allan MD Unavailable Unavailabl Raul Duran MD Unavailable Unavailabl Danny Lopes MD Unavailable [phone] Encounter Details Date Type Department Care [...] st Contact Info) Description 04/25/2024 11:00 AM CANCER REGISTRY COORDINATOR Appointment [facility] [address] [place] [address] Ti Bonilla MD [address] [place] [phone] 05/23/2024 3:30 PM CANCER REGISTRY COORDINATOR Office Visit [facility] [address] [place] [phone] Jyoti Escobar MD [address] [place] [address]63321 documented as of this encounter Visit Diagnoses Not on filedocumented in this encounter Care Teams Television Installer Relationship Specialty Start Date End Date Vernon Mercedes MD [address] [place] [phone] PCP - General FAMILY PRACTICE 10/27/15 12/02/21 [place] [address] [place] Cpas CARDIOVASCULAR DISEASE 08/19/16 Raul Santana MD [address] [place] [address] CLINICAL CARDIAC ELECTROPHYSIOLOGY 06/16/17 Danny Blackwell MD [address] [place] [address] ORTHOPAEDIC SURGERY 05/01/19 documented as of this encounter
--- OUTSIDE RECORDS SUMMARY | 2024-04-23 05:18 | XMS_ITS | Encounter Summary ---
Author Organization [facility] Address [address] [place] [address]. [place], [place] [address] [place] [address] Care Team Providers Care Line Producer Name Role Phone Vernon Mercedes MD Primary Care Provider [phone] Evaristo Allan MD Unavailable Unavailabl e Raul Santana MD Unavailable Unavailabl e Danny Blackwell MD Unavailable [phone] Reason for Visit * Reason Comments Jnt Pain/Knee * Physical Medicine (Routine) - Closed Specialty Diagnoses / Procedures Referred By Charito ledbetter Referred To Contact PHYSICAL THERAPY Diagnoses Prosthetic joint implant failure, subsequent encounter Aftercare following right knee joint replacement surgery Dari Piña FNP-ANDERSON [address] [place] [address] Phone: tel: fax: Referral ID Status Reason Start Date Expiration Date V isits Requested Visits Authorized [id number] Closed Physical Therapy 10/16/2019 11/14/2020 60 60 Encounter Details Date Type Department Care Team (Late st Contact Info) Description 12/17/2019 1:45 PM CDT - 12/17/2019 11:59 PM CDT Hospital Encounter [facility] [address] [place] [address] Dari Piña FNP-ANDERSON [address] [place] [address] Rossy Cardenas, DPT Jnt Pain/Knee Discharge Disposition: [...] 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 CARDIAC CATHETERIZATION 11/13/2018 ??? FRACTURE SURGERY ??? 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 HERNIA REPAIR ??? KNEE ARTHROPLASTY Bilateral ??? LITHOTRIPSY ??? XA ABLATION 05/19/2016 ??? XA CORONARY INTERVENTION 03/24/2018 SAP ENTERPRISE PORTAL CONSULTANT PCI-mid RCA Subjective: Diagnosis: R TKA Referring [...] mild instability. Treatment Performed: Therapeutic Exercise - 81074 Minutes Performed: 45 minutes Intervention: - Nustep [...] 5 - re evaluation Manual Therapy - 89058 Minutes Performed: 0' Intervention: HELD- IASTM to R quad Neuromuscular Reeducation - 30485 Minutes Performed: 0 minutes Intervention: - Tandem Balance x1 min anya. x2 - Foam balance NBOS x1 min Therapeutic Activities - 34479 Minutes Performed: Modalities Minutes Performed: 0 Intervention: [...] Contact Info) Description 04/25/2024 11:00 AM DIRECTOR SAFETY COUNCIL Appointment [facility] [address] [place] [address] Ti Bnoilla MD [address] [place] [phone] 05/23/2024 3:30 PM DIRECTOR SAFETY COUNCIL Office Visit [facility] [address] [place] [phone] Jyoti Escobar MD [address] [place] [address] 135231 documented as of this encounter Visit Diagnoses Diagnosis Status post revision of total replacement of right knee documented in this encounter Care Teams Line Producer Relationship Specialty Start Date End Date Vernon Mercedes MD [address] [place] [phone] PCP - General FAMILY PRACTICE 10/27/15 12/02/21 Evaristo Allan MD [address] [place] [address] [place] Writer Editor CARDIOVASCULAR DISEASE 08/19/16 Raul Santana MD [address] [place] [address] CLINICAL CARDIAC ELECTROPHYSIOLOGY 06/16/17 Danny Blackwell MD [address] [place] [address] ORTHOPAEDIC SURGERY 05/01/19 documented as of this encounter
--- OUTSIDE RECORDS SUMMARY | 2024-04-23 05:18 | XMS_ITS | Encounter Summary ---
Author Organization [facility] Address [address] [place] [address]. [place], [place] [address] [place] [address] Care Team Providers Care Qualified Craft Worker Electrician Name Role Phone Vernon Mercedes MD Primary Care Provider [phone] Evaristo Allan MD Unavailable Unavailabl e Raul Santana MD Unavailable Unavailabl e Danny Blackwell MD Unavailable [phone] Reason for Visit * Reason Comments Jnt Pain/Knee * Physical Medicine (Routine) - Closed Specialty Diagnoses / Procedures Referred By Charito ledbetter Referred To Contact PHYSICAL THERAPY Diagnoses Prosthetic joint implant failure, subsequent encounter Aftercare following right knee joint replacement surgery Dari Piña FNP-ANDERSON [address] [place] [address] Phone: tel: fax: Referral ID Status Reason Start Date Expiration Date V isits Requested Visits Authorized [id number] Closed Physical Therapy 10/16/2019 11/14/2020 60 60 Encounter Details Date Type Department Care Team (Late st Contact Info) Description 11/28/2019 7:45 AM CDT - 11/28/2019 11:59 PM T Hospital Encounter [facility] [address] [place] [address] Dari Piña FNP-ANDERSON [address] [place] [address] Rossy Cardenas, DPT Jnt Pain/Knee Discharge Disposition: [...] 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 CARDIAC CATHETERIZATION 11/13/2018 ??? FRACTURE SURGERY ??? 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 HERNIA REPAIR ??? KNEE ARTHROPLASTY Bilateral ??? LITHOTRIPSY ??? XA ABLATION 05/19/2016 ??? XA CORONARY INTERVENTION 03/24/2018 ENTRY PROCESSOR PCI-mid RCA Subjective: Diagnosis: R TKA Referring [...] LEFS: 31 Treatment Performed: Therapeutic Exercise - 27929 Minutes Performed: 40 minutes Intervention: - Nustep [...] prop 5# x5' HELD Manual Therapy - 08487 Minutes Performed: 0' Intervention: HELD- IASTM to R quad Neuromuscular Reeducation - 79718 Minutes Performed: Intervention: - Tandem Balance x1 min anya. Therapeutic Activities - 72184 Minutes Performed: Modalities Minutes Performed: 15' Intervention: [...] st Contact Info) Description 04/25/2024 11:00 AM PAPER CUTTING MACHINE OPERATOR Appointment [facility] [place] [address] Ti Bonilla MD [address] [place] [phone] 05/23/2024 3:30 PM PAPER CUTTING MACHINE OPERATOR Office Visit [facility] [address] [place] [address] Jyoti Escobar MD [address] [place] [address] documented as of this encounter Visit Diagnoses Diagnosis Status post revision of total replacement of right knee documented in this encounter Care Teams Qualified Craft Worker Electrician Relationship Specialty Start Date End Date Vernon Mercedes MD [address] [place] [phone] PCP - General FAMILY PRACTICE 10/27/15 12/02/21 Evaristo Allan MD [address] [place] [address] [place] Online User Experience Strategist CARDIOVASCULAR DISEASE 08/19/16 Raul Santana MD [address] [place] [address] CLINICAL CARDIAC ELECTROPHYSIOLOGY 06/16/17 Danny Blackwell MD [address] [place] [address] ORTHOPAEDIC SURGERY 05/01/19 documented as of this encounter
--- OUTSIDE RECORDS SUMMARY | 2024-04-23 05:18 | XMS_ITS | Encounter Summary ---
Author Organization [facility] Address [address] [place] [address]. 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 [...] Contact Info) Description 04/25/2024 11:00 AM WOOD TECHNOLOGIST Appointment [facility] [address] [place] [address] Ti Bonilla MD [address] [place] [phone] 05/23/2024 3:30 PM WOOD TECHNOLOGIST Office Visit [facility] [address] [place] [phone] Jyoti Escobar MD [address] [place] [address] documented as of this encounter Visit Diagnoses Not on filedocumented in this encounter Care Teams Package Sealer Relationship Specialty Start Date End Date Vernon Mercedes MD [address] [place] [phone] PCP - General FAMILY PRACTICE 10/27/15 12/02/21 [place] [address] [place] Cheese Sprayer CARDIOVASCULAR DISEASE 08/19/16 Raul Santana MD [address] [place] [address] CLINICAL CARDIAC ELECTROPHYSIOLOGY 06/16/17 Danny Blackwell MD [address]25 [place] [address] ORTHOPAEDIC SURGERY 05/01/19 documented as of this encounter
--- OUTSIDE RECORDS SUMMARY | 2024-04-23 05:18 | XMS_ITS | Encounter Summary ---
Author Organization [facility] Address [address] [place] [address]. [place], [place] [address] [place] [address] Care Team Providers Care Fluorescent Lamp Replacer Name Role Phone Vernon Mercedes MD Primary Care Provider [phone] Evaristo Allan MD Unavailable Unavailabl e Raul Santana MD Unavailable Unavailabl e Danny Blackwell MD Unavailable [phone] Reason for Visit * Reason Comments Jnt Pain/Knee * Physical Medicine (Routine) - Closed Specialty Diagnoses / Procedures Referred By Chartio ledbetter Referred To Contact PHYSICAL THERAPY Diagnoses Prosthetic joint implant failure, subsequent encounter Aftercare following right knee joint replacement surgery Dari Piña FNP-ANDERSON [address] [place] [address] Phone: tel: fax: Referral ID Status Reason Start Date Expiration Date V isits Requested Visits Authorized [id number] Closed Physical Therapy 10/16/2019 11/14/2020 60 60 Encounter Details Date Type Department Care Team (Late st Contact Info) Description 12/14/2019 2:30 PM CDT - 12/14/2019 11:59 PM T Hospital Encounter [facility] [address] [place] [address] Dari Piña FNP-ANDERSON [address] [place] [address] Rossy Cardenas, DPT Jnt Pain/Knee Discharge Disposition: [...] 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 CARDIAC CATHETERIZATION 11/13/2018 ??? FRACTURE SURGERY ??? 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 HERNIA REPAIR ??? KNEE ARTHROPLASTY Bilateral ??? LITHOTRIPSY ??? XA ABLATION 05/19/2016 ??? XA CORONARY INTERVENTION 03/24/2018 STEAM HEATING INSTALLER PCI-mid RCA Subjective: Diagnosis: R TKA Referring [...] WBAT Objective: Treatment Performed: Therapeutic Exercise - 48788 Minutes Performed: 54 minutes Intervention: - Nustep [...] Heel prop 5# x5' Manual Therapy - 29155 Minutes Performed: 0' Intervention: HELD- IASTM to R quad Neuromuscular Reeducation - 98215 Minutes Performed: 0 minutes Intervention: - Tandem Balance x1 min anya. x2 - Foam balance NBOS x1 min Therapeutic Activities - 62451 Minutes Performed: Modalities Minutes Performed: 0 Intervention: [...] Contact Info) Description 04/25/2024 11:00 AM CASINO ACCOUNTANT Appointment [facility] [address] [place] [address] [place] [address] Ti Bonilla MD [address] [place] [phone] 05/23/2024 3:30 PM CASINO ACCOUNTANT Office Visit [facility] [address] [place] [address] Jyoti Escobar MD [address] [place] [address] documented as of this encounter Visit Diagnoses Diagnosis Status post revision of total replacement of right knee documented in this encounter Care Teams Fluorescent Lamp Replacer Relationship Specialty Start Date End Date Vernon Mercedes MD [address] [place] [address] PCP - General FAMILY PRACTICE 10/27/15 12/02/21 Evaristo Allan MD [facility] [place] [address] [place] Trouble Locater CARDIOVASCULAR DISEASE 08/19/16 Raul Santana MD [address] [place] [address] CLINICAL CARDIAC ELECTROPHYSIOLOGY 06/16/17 Danny Blackwell MD [address] [place] [address] ORTHOPAEDIC SURGERY 05/01/19 documented as of this encounter
--- OUTSIDE RECORDS SUMMARY | 2024-04-23 05:18 | XMS_ITS | Encounter Summary ---
Author Organization [facility] Address [address] [place] [address]. [place], [place] [address] [place] [address] Care Team Providers Care Progressive Assembler And Fitter Name Role Phone Vernon Mercedes MD Primary Care Provider [phone] Evaristo Allan MD Unavailable Unavailabl Raul Duran MD Unavailable Unavailabl e Danny Blackwell MD Unavailable [phone] Reason for Visit * Reason Comments Postop Followup DOS: 10/15/2019 - Fa iled right total knee arthroplasty secondary to osteo-lysis Encounter Details Date Type Department Care Team (Latest Contact Info) Description 11/16/2019 11:15 AM CDT Office Visit [facility] [address] [address] Danny Blackwell MD [address] [place], [place] [phone] Postop Followup (DOS: 10/15/2019 - Failed right [...] 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 Essential hypertension ??? Paroxysmal atrial fibrillation ([facility]/HCC) ??? 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 Obstructive sleep apnea ??? Hyperlipidemia ??? Diabetes (CMS/HCC) ??? Coronary artery disease ??? 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 Cardiovascular stress test abnormal ??? Arthritis of knee ??? Derangement of medial meniscus, left ??? Encounter for follow-up examination after completed treatment for conditions other than malignant neoplasm ??? Heartburn ??? Knee pain ??? Mechanical complication of internal orthopedic device, implant or graft, initial encounter ([facility]) ??? Patella-femoral syndrome ??? Pes anserine bursitis ??? Recurrent ventral incisional hernia ??? Abdominal pain ??? Failure of total knee replacement, initial encounter ([facility]) ??? S/P coronary artery stent placement ??? 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 Status post revision of total replacement of right knee History: Past Medical History: Diagnosis Date ??? Abnormal stress test ??? Arthritis ??? 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 Coronary artery disease ??? Diabetes ([facility]/HCC) ??? Fatigue ??? GERD (gastroesophageal reflux disease) ??? Headache ??? Hyperlipidemia ??? Hypertension has had elevated B/P readings ??? Kidney stone ??? SARAI on CPAP ??? Paroxysmal atrial fibrillation (CMS/HCC) ??? PONV (postoperative nausea and vomiting) Past Surgical History: Procedure Laterality Date ??? CARDIAC CATHETERIZATION 01/04/2018 occluded prox RCA w/well developed iwjh-vj-zfxve collaterals lvef 55-60% ??? CARDIAC CATHETERIZATION 11/13/2018 ??? FRACTURE SURGERY ??? 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 HERNIA REPAIR ??? KNEE ARTHROPLASTY Bilateral ??? LITHOTRIPSY ??? XA ABLATION 05/19/2016 ??? XA CORONARY INTERVENTION 03/24/2018 MOTOR TRANSPORT INSPECTOR PCI-mid RCA Family History Problem Relation Name [...] replacement, initial encounter ([facility]) T84.018A 996.47 PROSTHETIC JOINT MECHANICAL FAILURE oxyCODONE-acetaminophen [...] st Contact Info) Description 04/25/2024 11:00 AM EXPERIMENTAL BOX TESTER Appointment [facility] [address] [place] [address] Ti Bonilla MD [address] [place] [phone] 05/23/2024 3:30 PM EXPERIMENTAL BOX TESTER Office Visit [facility] [address] [place] [address] Jyoti Escobar MD [address] [place] [phone] documented as of this encounter Visit Diagnoses Diagnosis Failure of total knee replacement, initial encounter ([facility])- Primary documented in this encounter Care Teams Progressive Assembler And Fitter Relationship Specialty Start Date End Date Vernon Mercedes MD [address] [place] [address] PCP - General FAMILY PRACTICE 10/27/15 12/02/21 [place] [address] [place] Mercury Cell Cleaner CARDIOVASCULAR DISEASE 08/19/16 [place] [address] CLINICAL CARDIAC ELECTROPHYSIOLOGY 06/16/17 Danny Blackwell MD [address] [place] [address] ORTHOPAEDIC SURGERY 05/01/19 documented as of this encounter
--- OUTSIDE RECORDS SUMMARY | 2024-04-23 05:18 | XMS_ITS | Encounter Summary ---
Author Organization [facility] Address [address] [place] [address]. 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 file [...] Contact Info) Description 04/25/2024 11:00 AM JAVA USER INTERFACE DEVELOPER Appointment [facility] [address] [place] [address] Ti Bonilla MD [address] [place] [phone] 05/23/2024 3:30 PM JAVA USER INTERFACE DEVELOPER Office Visit [facility] [address] [place] [phone] Jyoti Escobar MD [address] [place] [address] [phone] documented as of this encounter Visit Diagnoses Not on filedocumented in this encounter Care Teams Business Systems Consultant Relationship Specialty Start Date End Date Vernon Mercedes MD [address] [place] [phone] PCP - General FAMILY PRACTICE 10/27/15 12/02/21 [place] [address] [place] Hoop Maker Machine CARDIOVASCULAR DISEASE 08/19/16 Raul Santana MD [address] [place] [address] CLINICAL CARDIAC ELECTROPHYSIOLOGY 06/16/17 Danny Blackwell MD [address] [place] [address] ORTHOPAEDIC SURGERY 05/01/19 documented as of this encounter
--- OUTSIDE RECORDS SUMMARY | 2024-04-23 05:18 | XMS_ITS | Encounter Summary ---
Author Organization [facility] Address [address] [place] [address]. [place], [place] [address] [place] [address] Care Team Providers Care Accountant Certified Public Name Role Phone Vernon Mercedes MD Primary Care Provider [phone] Evaristo Allan MD Unavailable Unavailabl Raul Duran MD Unavailable Unavailabl Danny Lopes MD Unavailable [phone] Reason for Visit * Physical Medicine (Routine) - Closed Specialty Diagnoses / Procedures Referred By Charito ledbetter Referred To Contact PHYSICAL THERAPY Diagnoses Prosthetic joint implant failure, subsequent encounter Aftercare following right knee joint replacement surgery Dari Piña FNP-BC [address] [place] [address] Phone: tel: fax: Referral ID Status Reason Start Date Expiration Date V isits Requested Visits Authorized [id number] Closed Physical Therapy 10/16/2019 11/14/2020 60 60 Encounter Details Date Type Department Care Team (Late st Contact Info) Description 11/23/2019 3:10 PM CDT - 11/23/2019 11:59 PM CDT Hospital Encounter [facility] [address] [place] [address] Dari Piña FNP-BC [address] [place] [address] Keiry Naranjo, SPA DIRECTOR/FINANCE [address] [place] [address] Discharge Disposition: Home or Self Care (Routine [...] CATHETERIZATION 01/04/2018 occluded prox RCA w/well developed dsxm-uq-kctoz collaterals lvef 55-60% ??? CARDIAC CATHETERIZATION 11/13/2018 ??? FRACTURE SURGERY ??? 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 HERNIA REPAIR ??? KNEE ARTHROPLASTY Bilateral ??? LITHOTRIPSY ??? XA ABLATION 05/19/2016 ??? XA CORONARY INTERVENTION 03/24/2018 ORACLE PROGRAMMER PCI-mid RCA Subjective: Diagnosis: R TKA Referring [...] WBAT Objective: Treatment Performed: Therapeutic Exercise - 56777 Minutes Performed: 35 minutes Intervention: - Nustep [...] clamshells x 20 B Manual Therapy - 66236 Minutes Performed: 0' Intervention: HELD- IASTM to R quad Neuromuscular Reeducation - 69073 Minutes Performed: Intervention: Therapeutic Activities - 68170 Minutes Performed: Modalities Minutes Performed: 15' Intervention: [...] st Contact Info) Description 04/25/2024 11:00 AM CAN FILLING ROOM SWEEPER Appointment [facility] [address] [place] [address] Ti Bonilla MD [address] [place] [phone] 05/23/2024 3:30 PM CAN FILLING ROOM SWEEPER Office Visit [facility] [address] [place] [phone] Jyoti Escobar MD [address] [place] [address] [phone] documented as of this encounter Visit Diagnoses Diagnosis Status post revision of total replacement of right knee documented in this encounter Care Teams Accountant Certified Public Relationship Specialty Start Date End Date Vernon Mercedes MD [address] [place] [address] PCP - General FAMILY PRACTICE 10/27/15 12/02/21 Evaristo Allan MD [address] [place] [address] Kulm Lumber Puller CARDIOVASCULAR DISEASE 08/19/16 Raul Santana MD [address] [place] [address] CLINICAL CARDIAC ELECTROPHYSIOLOGY 06/16/17 Danny Blackwell MD [address] [place] [address] ORTHOPAEDIC SURGERY 05/01/19 documented as of this encounter
--- OUTSIDE RECORDS SUMMARY | 2024-04-23 05:18 | XMS_ITS | Encounter Summary ---
Author Organization [facility] Address [address] [place] [address]. 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 Not [...] Contact Info) Description 04/25/2024 11:00 AM CLERICAL SUPPORT Appointment [facility] [address] [place] [address] Ti Bonilla MD [address] [place] [phone] 05/23/2024 3:30 PM CLERICAL SUPPORT Office Visit [facility] [address] [place] [phone] Jyoti Escobar MD [address] [place] [phone] documented as of this encounter Visit Diagnoses Not on filedocumented in this encounter Care Teams Control Systems Technician Relationship Specialty Start Date End Date Vernon Mercedes MD [address] [place] [phone] PCP - General FAMILY PRACTICE 10/27/15 12/02/21 [place] [address] [place]ert[place] Senior Windows Systems Administrator CARDIOVASCULAR DISEASE 08/19/16 Raul Santana MD [address] [place] [address] CLINICAL CARDIAC ELECTROPHYSIOLOGY 06/16/17 Danny Blackwell MD [address] [place] [address] ORTHOPAEDIC SURGERY 05/01/19 documented as of this encounter
--- OUTSIDE RECORDS SUMMARY | 2024-04-23 05:18 | XMS_ITS | Encounter Summary ---
Author Organization [facility] Address [address] [place] [address]. [place], [place] [address] [place] [address] Care Team Providers Care Distillery Miller Name Role Phone Vernon Mercedes MD Primary Care Provider [phone] Evaristo Allan MD Unavailable Unavailabl Raul Duran MD Unavailable Unavailabl Danny Lopes MD Unavailable [phone] Reason for Visit * Physical Medicine (Routine) - Closed Specialty Diagnoses / Procedures Referred By Charito ledbetter Referred To Contact PHYSICAL THERAPY Diagnoses Prosthetic joint implant failure, subsequent encounter Aftercare following right knee joint replacement surgery Dari Piña FNP-BC [address] [place] [address] Phone: tel: fax: Referral ID Status Reason Start Date Expiration Date V isits Requested Visits Authorized [id number] Closed Physical Therapy 10/16/2019 11/14/2020 60 60 Encounter Details Date Type Department Care Team (Late st Contact Info) Description 11/14/2019 4:00 PM CDT - 11/14/2019 11:59 PM T Hospital Encounter [facility] [address] [place] [address] Dari Piña FNP-BC [address] [place] [address] Keiry Naranjo, ETIOLOGIST [address] [place] [address] Discharge Disposition: Home or Self Care (Routine [...] 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 CARDIAC CATHETERIZATION 11/13/2018 ??? FRACTURE SURGERY ??? 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 HERNIA REPAIR ??? KNEE ARTHROPLASTY Bilateral ??? LITHOTRIPSY ??? XA ABLATION 05/19/2016 ??? XA CORONARY INTERVENTION 03/24/2018 EDITOR MAGAZINE PCI-mid RCA Subjective: Diagnosis: R TKA Referring [...] WBAT Objective: Treatment Performed: Therapeutic Exercise - 60940 Minutes Performed: 45 minutes Intervention: N- Nustep [...] clamshells x 20 B Manual Therapy - 06675 Minutes Performed: Intervention: - IASTM to R quad (see above) Neuromuscular Reeducation - 14784 Minutes Performed: Intervention: HELD- Nigerien to R quad with quad sets and SAQ Therapeutic Activities - 58720 Minutes Performed: Modalities Minutes Performed: 15' Intervention: [...] Contact Info) Description 04/25/2024 11:00 AM TEXTILE SCIENCE TECHNICIAN Appointment [facility] [place] [address] Ti Bonilla MD [address] [place] [phone] 05/23/2024 3:30 PM TEXTILE SCIENCE TECHNICIAN Office Visit [facility] [place] [address] Jyoti Escobar MD [address] [place] [address] documented as of this encounter Visit Diagnoses Diagnosis Status post revision of total replacement of right knee documented in this encounter Care Teams Distillery Miller Relationship Specialty Start Date End Date Vernon Mercedes MD [address] [place] [address] PCP - General FAMILY PRACTICE 10/27/15 12/02/21 Evaristo Allan MD [address] [place] [address] [place] Iron Setter CARDIOVASCULAR DISEASE 08/19/16 Raul Santana MD [address] [place] [address] CLINICAL CARDIAC ELECTROPHYSIOLOGY 06/16/17 Danny Blackwell MD [address] [place] [address] ORTHOPAEDIC SURGERY 05/01/19 documented as of this encounter
--- OUTSIDE RECORDS SUMMARY | 2024-04-23 05:18 | XMS_ITS | Encounter Summary ---
Author Organization [facility] Address [address] [place] [address]. [place], [place] [address] [place] [address] Care Team Providers Care Grid Maker Name Role Phone Vernon Mercedes MD Primary Care Provider [phone] Evaristo Allan MD Unavailable Unavailabl e Raul Santana MD Unavailable Unavailabl e Danny Blackwell MD Unavailable [phone] Reason for Visit * Reason Comments Jnt Pain/Knee * Physical Medicine (Routine) - Closed Specialty Diagnoses / Procedures Referred By Charito ledbetter Referred To Contact PHYSICAL THERAPY Diagnoses Prosthetic joint implant failure, subsequent encounter Aftercare following right knee joint replacement surgery Dari Piña FNP-ANDERSON [address] [place] [address] Phone: tel: fax: Referral ID Status Reason Start Date Expiration Date V isits Requested Visits Authorized [id number] Closed Physical Therapy 10/16/2019 11/14/2020 60 60 Encounter Details Date Type Department Care Team (Late st Contact Info) Description 11/12/2019 3:05 PM CDT - 11/12/2019 11:59 PM T Hospital Encounter [facility] [address] [place] [address] Dari Piña FNP-ANDERSON [address] [place] [address] Rossy Cardenas, DPT Jnt Pain/Knee Discharge Disposition: [...] CATHETERIZATION 01/04/2018 occluded prox RCA w/well developed cdpz-qc-kakqb collaterals lvef 55-60% ??? CARDIAC CATHETERIZATION 11/13/2018 ??? FRACTURE SURGERY ??? 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 HERNIA REPAIR ??? KNEE ARTHROPLASTY Bilateral ??? LITHOTRIPSY ??? XA ABLATION 05/19/2016 ??? XA CORONARY INTERVENTION 03/24/2018 SOUNDING DEVICE OPERATOR PCI-mid RCA Subjective: Diagnosis: R TKA Referring [...] 90 degrees Treatment Performed: Therapeutic Exercise - 55532 Minutes Performed: 35 minutes Intervention: - PROM flexion/extension - heelslide with strap 5' hold x 10 - DKTC on peanut ball 2x10 - quad set 10 sec x10 - SAQ 5 sec x 20 - supine hip abduction x20 HELD -SLR x10 N - clamshells x 20 B Manual Therapy - 59827 Minutes Performed: 10 minutes Intervention: - IASTM to R quad Neuromuscular Reeducation - 06854 Minutes Performed: Intervention: HELD- Czech to R quad with quad sets and SAQ Therapeutic Activities - 91573 Minutes Performed: Modalities Minutes Performed: 15' Intervention: [...] Contact Info) Description 04/25/2024 11:00 AM CHIEF TECHNOLOGIST Appointment [facility] [address] [place] [address] Ti Bonilla MD [address] [place] [phone] 05/23/2024 3:30 PM CHIEF TECHNOLOGIST Office Visit [facility] [address] [place] [address] Jyoti Escobar MD [address] [place] [address] documented as of this encounter Visit Diagnoses Diagnosis Status post revision of total replacement of right knee documented in this encounter Care Teams Grid Maker Relationship Specialty Start Date End Date Vernon Mercedes MD [address] [place] [phone] PCP - General FAMILY PRACTICE 10/27/15 12/02/21 Evaristo Allan MD [address] [place] [address] [place] Boat Operator CARDIOVASCULAR DISEASE 08/19/16 Raul Santana MD [address] [place] [address] CLINICAL CARDIAC ELECTROPHYSIOLOGY 06/16/17 Danny Blackwell MD [address] [place] [address] ORTHOPAEDIC SURGERY 05/01/19 documented as of this encounter
--- OUTSIDE RECORDS SUMMARY | 2024-04-23 05:18 | XMS_ITS | Encounter Summary ---
Author Organization [facility] Address [address] [place] [address]. [place], [place] [address] [place] [address] Care Team Providers Care Fish Farmer Name Role Phone Vernon Mercedes MD Primary Care Provider [phone] Evaristo Allan MD Unavailable Unavailabl e Raul Santana MD Unavailable Unavailabl e Danny Blackwell MD Unavailable [phone] Reason for Visit * Reason Comments Jnt Pain/Knee * Physical Medicine (Routine) - Closed Specialty Diagnoses / Procedures Referred By Charito ledbetter Referred To Contact PHYSICAL THERAPY Diagnoses Prosthetic joint implant failure, subsequent encounter Aftercare following right knee joint replacement surgery Dari Piña FNP-ANDERSON [address] [place] [address] Phone: tel: fax: Referral ID Status Reason Start Date Expiration Date V isits Requested Visits Authorized [id number] Closed Physical Therapy 10/16/2019 11/14/2020 60 60 Encounter Details Date Type Department Care Team (Late st Contact Info) Description 11/05/2019 2:15 PM CDT - 11/05/2019 11:59 PM T Hospital Encounter [facility] [address] [place] [address] Dari Piña FNP-ANDERSON [address] [place] [address] Sylvie Benitez, SEARCH PLANNER Jnt Pain/Knee Discharge Disposition: Home or Self [...] this encounter Progress Notes * Sylvie Benitez, SEARCH PLANNER - 11/05/2019 2:27 PM CDT [facility] PHYSICAL [...] CATHETERIZATION 01/04/2018 occluded prox RCA w/well developed ggyu-tg-ixltu collaterals lvef 55-60% ??? CARDIAC CATHETERIZATION 11/13/2018 ??? FRACTURE SURGERY ??? 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 HERNIA REPAIR ??? KNEE ARTHROPLASTY Bilateral ??? LITHOTRIPSY ??? XA ABLATION 05/19/2016 ??? XA CORONARY INTERVENTION 03/24/2018 LEDGE MAN PCI-mid RCA Subjective: Diagnosis: R TKA Referring [...] 88 degrees Treatment Performed: Therapeutic Exercise - 03596 Minutes Performed: 30 minutes Intervention: - PROM flexion/extension - heelslide with strap 3' hold x 10 HELD- DKTC on peanut ball 2x10 - quad set 10 sec x10 - SAQ 2 x 10 (INCRSD REPS) - supine hip abduction x20 N-SLR x5 Manual Therapy - 34272 Minutes Performed: 10 minutes Intervention: - IASTM to R quad Neuromuscular Reeducation - 16697 Minutes Performed: Intervention: HELD- Maldivian to R quad with quad sets and SAQ Therapeutic Activities - 85631 Minutes Performed: Modalities Minutes Performed: 15' Intervention: - gameready to R knee x 15 min Total Treatment Time: 55 minutes Education Performed: Educated to continue current HEP. ASSESSMENT: Note: Pt has good quad control this afternoon, so patient didn't receive Maldivian to R quad. Pt ableto complete SLR on own. Pt continues to progress towards flexion goal, see obj. Pt continues to work hard during therapy and completes what is asked. PLAN: Plan for next visit: Continue range of motion and strengthening. documented in this encounter Plan of Treatment Upcoming Encounters Date Type Department Care Team (Late st Contact Info) Description 04/25/2024 11:00 AM BOW MAKER CUSTOM Appointment [facility] [address] [place] [address] Ti Bonilla MD [address] [place] [phone] 05/23/2024 3:30 PM BOW MAKER CUSTOM Office Visit [facility] [address] [place] [phone] Jyoti Escobar MD [address] [place] [address] documented as of this encounter Visit Diagnoses Diagnosis Status post revision of total replacement of right knee- Primary documented in this encounter Care Teams Fish Farmer Relationship Specialty Start Date End Date Vernon Mercedes MD [address] [place] [address] PCP - General FAMILY PRACTICE 10/27/15 12/02/21 Evaristo Allan MD [address] [place] [address] [place] Food Chemist CARDIOVASCULAR DISEASE 08/19/16 Raul Santana MD [address] [place] [address] CLINICAL CARDIAC ELECTROPHYSIOLOGY 06/16/17 Danny Blackwell MD [address] [place], [place] [phone] ORTHOPAEDIC SURGERY 05/01/19 documented as of this encounter
--- OUTSIDE RECORDS SUMMARY | 2024-04-23 05:18 | XMS_ITS | Encounter Summary ---
Author Organization [facility] Address [address] [place] [address]. [place], [place] [address] [place] [address] Care Team Providers Care Cartography Technician Name Role Phone Vernon Mercedes MD Primary Care Provider [phone] Evaristo Allan MD Unavailable Unavailabl Raul Duran MD Unavailable Unavailabl Danny Lopes MD Unavailable [phone] Encounter Details Date Type Department Care [...] st Contact Info) Description 04/25/2024 11:00 AM MILLER HEAD Appointment [facility] [address] [place] [address] Ti Bonilla MD [address] [place] [phone] 05/23/2024 3:30 PM MILLER HEAD Office Visit [facility] [address] [place] [phone] Jyoti Esocbar MD [address] [place] [phone] documented as of this encounter Visit Diagnoses Not on filedocumented in this encounter Care Teams Cartography Technician Relationship Specialty Start Date End Date Vernon Mercedes MD [address] [place] [phone] PCP - General FAMILY PRACTICE 10/27/15 12/02/21 [place] [address] [place] Spine Specialist CARDIOVASCULAR DISEASE 08/19/16 Raul Santana MD [address] [place] [address] CLINICAL CARDIAC ELECTROPHYSIOLOGY 06/16/17 Danny Blackwell MD [address] [place] [address] ORTHOPAEDIC SURGERY 05/01/19 documented as of this encounter
--- OUTSIDE RECORDS SUMMARY | 2024-04-23 05:18 | XMS_ITS | Encounter Summary ---
Author Organization [facility] Address [address] [place] [address]. [place], [place] [address] [place] [address] Care Team Providers Care Manufacturing Engineering Manager Name Role Phone Vernon Mercedes MD Primary Care Provider Evaristo Allan MD Unavailable Unavailabl Raul Duran MD Unavailable Unavailabl Danny Lopes MD Unavailable [phone] Encounter Details Date Type Department Care [...] st Contact Info) Description 04/25/2024 11:00 AM WORM FARM LABORER Appointment [facility] [address] [place] [address] Ti Bonilla MD [address] [place] [phone] 05/23/2024 3:30 PM WORM FARM LABORER Office Visit [facility] [address] [place] [phone] Jyoti Escobar MD [address] [place] [address] 251871 documented as of this encounter Visit Diagnoses Not on filedocumented in this encounter Care Teams Manufacturing Engineering Manager Relationship Specialty Start Date End Date Vernon Mercedes MD [address] [place] [phone] PCP - General FAMILY PRACTICE 10/27/15 12/02/21 [place] [address] [place] Icing And Glaze Maker CARDIOVASCULAR DISEASE 08/19/16 Raul Santana MD 1285 [place] [address] CLINICAL CARDIAC ELECTROPHYSIOLOGY 06/16/17 Danny Blackwell MD 725 [place] [address] ORTHOPAEDIC SURGERY 05/01/19 documented as of this encounter
--- OUTSIDE RECORDS SUMMARY | 2024-04-23 05:19 | XMS_ITS | Encounter Summary ---
Author Organization [facility] Address [address] [place] [address]. 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 [address] [place] [address] Ti Bonilla MD [address] [place] [phone] 05/23/2024 3:30 PM FAILURE ANALYSIS ENGINEER [facility] [address] [place] [address] Jyoti Escobar MD [address] [place] [address] documented as of this encounter Visit Diagnoses Not on filedocumented in this encounter Care Teams Web Operations Manager Relationship Specialty Start Date End Date Vernon Mercedes MD [address] [place] [address] PCP - General FAMILY PRACTICE 10/27/15 12/02/21 Evaristo Allan MD [address] [place] [address] [place] [facility]ist CARDIOVASCULAR DISEASE 08/19/16 Raul Santana MD [address] [place] [address] CLINICAL CARDIAC ELECTROPHYSIOLOGY 06/16/17 Danny Blackwell MD 725 [place] [address] ORTHOPAEDIC SURGERY 05/01/19 documented as of this encounter
--- OUTSIDE RECORDS SUMMARY | 2024-04-23 05:19 | XMS_ITS | Encounter Summary ---
Author Organization [facility] Address [address] [place] [address]. [place], [place] [address] [place] [address] Care Team Providers Care Machine I Cutter Name Role Phone Vernon Mercedes MD Primary Care Provider [phone] Evaristo Allan MD Unavailable Unavailabl Raul Duran MD Unavailable Unavailabl e Danny Blackwell MD Unavailable [phone] Reason for Referral * Physical Medicine (Routine) - Closed Specialty Diagnoses / Procedures Referred By Charito ledbetter Referred To Contact PHYSICAL THERAPY Diagnoses Prosthetic joint implant failure, subsequent encounter Aftercare following right knee joint replacement surgery Dari Piña FNP-BC [address] [place] [address] Phone: tel: fax: Referral ID Status Reason Start Date Expiration Date V isits Requested Visits Authorized [id number] Closed Physical Therapy 10/16/2019 11/14/2020 60 60 Encounter Details Date Type Department Care Team (Late st Contact Info) Description 10/16/2019 Orders Only [facility] [address], [facility] [address] [place] [address] Dari Piña FNP-BC [address] [place] [address] Social History Tobacco Use Types Packs/Day Years [...] st Contact Info) Description 04/25/2024 11:00 AM LAYOUT INSPECTOR Appointment [facility] [address] [place] [place] [address] Ti Bonilla MD [address] [place] [phone] 05/23/2024 3:30 PM LAYOUT INSPECTOR [facility] [address] [place] [phone] Jyoti Escobar MD [address]19 [place] [address] Scheduled Referrals Name Type Priority Associated Diagnoses Orde r Schedule Ambulatory referral to Physical Therapy Referral Routine Prosthetic joint implant failure, subsequent encounter Aftercare following right knee joint replacement surgery Ordered: 10/16/2019 documented as of this encounter Visit Diagnoses Diagnosis Prosthetic joint implant failure, subsequent encounter- Primary Aftercare following right knee joint replacement surgery documented in this encounter Care Teams Machine I Cutter Relationship Specialty Start Date End Date Vernon Mercedes MD [address] [place] [phone] PCP - General FAMILY PRACTICE 10/27/15 12/02/21 Evaristo Allan MD [address] [place] [address] [place] Pension Fund Manager CARDIOVASCULAR DISEASE 08/19/16 Raul Santana MD [address] [place] [address] CLINICAL CARDIAC ELECTROPHYSIOLOGY 06/16/17 Danny Blackwell MD [address] [place], [place] [phone] ORTHOPAEDIC SURGERY 05/01/19 documented as of this encounter
--- OUTSIDE RECORDS SUMMARY | 2024-04-23 05:19 | XMS_ITS | Encounter Summary ---
Author Organization [facility] Address [address] [place] [address]. 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 [address] [place] [address] [place] [address] Ti Bonilla MD [address] [place] [phone] 05/23/2024 3:30 PM TECHNICAL SALES ASSOCIATE Office Visit [facility] [address] [facility] [place] [phone] Jyoti Escobar MD [address] [place] [address] [phone] documented as of this encounter Results * CORONAVIRUS (COVID 19) [facility] (10/12/2019 6:42 AM CDT) CORONAVIRUS SARS COV 2 PCR (RESP) NOT DETECTED NOT DETECTED 10/13/2019 9:43 PM CDT [facility] Comment: A Not Detected (negative) test result [...] providers and patients using the following websites: https://www.[facility]/home/Covid-19/HCP/NAAT/fact-sheet2 https://www.[facility].[employer]/home/Covid-19/Patients/NAAT/ fact-sheet2 This test has been authorized by the FDA under an Emergency Use Authorization (EUA) for use by authorized laboratories. Due to the current public health emergency, [facility] is receiving a high volume of samples [...] about COVID-19 can be found at the [facility] website: www.[facility]/Covid19. Test performed at [facility] [address] ??[phone] Director: VIRGILIO MONSON DO,MPH NASOPHARYNGEAL SWAB / Unknown 10/12/2019 6:42 AM CDT Danny Blackwell MD MICROBIOLOGY - GENERAL ORDERAB LES Final Result [facility] [address] [address], * (ABNORMAL) HEMOGLOBIN, GLYCOSYLATED (10/08/2019 9:34 AM CDT) HGB A1C 8.7(H) <5.7 % 10/08/2019 3:36 PM CDT [facility] Comment: 5.7 TO 6.4% INCREASED RISK OF DIABETES > OR = 6.5% CONSISTENT WITH DIABETES PER ADA GUIDELINES ESTIMATED AVG GLUCOSE 203(H) 70 - 140 MG/DL 10/08/2019 3:36 PM CDT [facility] 10/08/2019 9:34 AM CDT Danny Blackwell MD LABORATORY Final Result [facility] [place] [address], documented in this encounter Visit Diagnoses Diagnosis Pre-operative laboratory examination- Primary Pre-procedural laboratory examination Diabetes ([facility]/HCC HHS/HCC) documented in this encounter Additional Health Concerns Infection Onset Date Last Indicated Resolved Time MRSA Comment:Negative MRSA 05/201903/11/2017 03/11/2017 10/03/2019 10:08 AM CDT documented as of this encounter Care Teams Loom Repairer Relationship Specialty Start Date End Date Vernon Mercedes MD [address] [place] [address] PCP - General FAMILY PRACTICE 10/27/15 12/02/21 Evaristo Allan MD [address] [place] [address] [place] Lead Vulcanizing Operator CARDIOVASCULAR DISEASE 08/19/16 Raul Santana MD [address] [place] [address] CLINICAL CARDIAC ELECTROPHYSIOLOGY 06/16/17 Danny Blackwell MD 725 [place] [address] ORTHOPAEDIC SURGERY 05/01/19 documented as of this encounter
--- OUTSIDE RECORDS SUMMARY | 2024-04-23 05:19 | XMS_ITS | Encounter Summary ---
Author Organization [facility] Address [address] [place] [address]. [place], [place] [address] [place] [address] Care Team Providers Care Filbert Grower Name Role Phone Vernon Mercedes MD Primary Care Provider [phone] Evaristo Allan MD Unavailable Unavailabl Raul Duran MD Unavailable Unavailabl e Danny Blackwell MD Unavailable [phone] Encounter Details Date Type Department Care Team (Late Contact Info) Description 09/21/2019 Orders Only [facility] [address] [facility], [address] [address] Kady Vann RN Social History [...] (Late Contact Info) Description 04/25/2024 11:00 AM COUNTER WAITRESS/WAITER Appointment [facility] [facility] [place] [address] Ti Bonilla MD [address] [place] [phone] 05/23/2024 3:30 PM COUNTER WAITRESS/WAITER Office Visit [facility] [place] [address] Jyoti Escobar MD [address] [place] [address] documented as of this encounter Results * (ABNORMAL) SED RATE, ERYTHROCYTE (ESR) (09/21/2019 12:42 PM CDT) Pathologist [facility] ESR 44(H) 0 - 20 MM/HR 09/21/2019 1:28 PM CDT [facility] Comment:NOTE: ANEMIA, IF PRE SENT, MAY CAUSE AN ELEVATED SEDIMENTATION RATE. 09/21/2019 12:4 2 PM CDT Danny Blackwell MD LABORATORY Final Result Performing Organization Address City/[facility]/ZIP Co de Phone Number [facility] [address] [place] [address], * C-REACTIVE PROTEIN (09/21/2019 12:42 PM CDT) Pathologist [facility] C-REACTIVE PROTEIN 0.14 <0.30 mg/dL 09/21/2019 1:00 PM CDT [facility] 09/21/2019 12:4 2 PM CDT us Danny Blackwell MD LABORATORY Final Result Performing Organization Address City/[facility]/ZIP Co de Phone Number [facility] [address] [place] [address], * (ABNORMAL) CBC W/DIFF AUTOMATED (09/21/2019 12:42 PM CDT) Pathologist [facility] WBC 7.5 4.5 - 10.8 x10'3/uL 09/21/2019 12:48 PM CDT [facility] RBC 4.81 4.50 - 6.10 x10'6/uL 09/21/2019 12:48 PM CDT [facility] HGB 13.2 13.0 - 18.0 G/DL 09/21/2019 12:48 PM CDT [facility] HCT 41.6 37.0 - 52.0 % 09/21/2019 12:48 PM CDT [facility] MCV 86.5 78.0 - 100.0 FL 09/21/2019 12:48 PM CDT [facility] MCH 27.4 27.0 - 31.0 PG 09/21/2019 12:48 PM CDT [facility] MCHC 31.7(L) 33.0 - 36.0 G/DL 09/21/2019 12:48 PM CDT [facility] RDW 13.8 11.5 - 14.5 % 09/21/2019 12:48 PM CDT [facility] PLT 288 150 - 350 x10'3/uL 09/21/2019 12:48 PM CDT [facility] MPV 11.3(H) 7.4 - 10.4 FL 09/21/2019 12:48 PM CDT [facility] DIFFERENTIAL COMMENT NORMAL REFERENCE RANGE NOT ESTABLISHED FOR THE PROPORTIONAL LEUKOCYTE DIFFERENTIAL. 09/21/2019 12:48 PM CDT [facility] SEG NEUTROPHILS 59.9 % 0 12:48 PM CDT [facility] LYMPHOCYTES 25.7 % 09/21/2019 12:48 PM CDT [facility] MONOCYTES 10.9 % 09/21/2019 12:48 PM CDT [facility] EOSINOPHILS 1.9 % 09/21/2019 12:48 PM CDT [facility] BASOPHILS 1.3 % 09/21/2019 12:48 PM CDT [facility] IMMATURE GRANS % 0.3 % 09/21/19 20 12:48 PM CDT [facility] NRBC 0.0 % 09/21/2019 12:48 PM CDT [facility] ABS. NEUTROPHILS 4.50 1.60 - 8.30 x10'3/uL 09/21/2019 12:48 PM CDT [facility] ABS. LYMPHOCYTES 1.93 0.80 - 4.70 x10'3/uL 09/21/2019 12:48 PM CDT [facility] ABS. MONOCYTES 0.82 0.00 - 1.50 x10'3/uL 09/21/2019 12:48 PM CDT [facility] ABS. EOSINOPHILS 0.14 0.00 - 0.40 x10'3/uL 09/21/2019 12:48 PM CDT [facility] ABS. BASOPHILS 0.10 0.00 - 0.20 x10'3/uL 09/21/2019 12:48 PM CDT [facility] ABS. IMMATURE GRANULOCYTES 0.02 0.00 - 0.03 x10'3/uL 09/21/2019 12:48 PM CDT [facility] ABS. NUCLEATED RBC'S 0.00 0.00 x10'3/uL 09/21/2019 12:48 PM CDT [facility] 09/21/2019 12:4 2 PM CDT Danny Blackwell MD LABORATORY Final Result [facility] [address] [place] [address], documented in this encounter Visit Diagnoses Diagnosis Prosthetic joint implant failure, subsequent encounter- Primary documented in this encounter Additional Health Concerns Infection Onset Date Last Indicated Resolved Time MRSA Comment:Negative MRSA 05/201903/11/2017 03/11/2017 10/03/2019 10:08 AM CDT documented as of this encounter Care Teams Filbert Grower Relationship Specialty Start Date End Date Vernon Mercedes MD [facility] [place] [phone] PCP - General FAMILY PRACTICE 10/27/15 12/02/21 Evaristo Allan MD [address] [place] [address] [place] Cocoa Bean Cleaner CARDIOVASCULAR DISEASE 08/19/16 Raul Santana MD [address] [place] [address] CLINICAL CARDIAC ELECTROPHYSIOLOGY 06/16/17 Danny Blackwell MD 725 [place] [address] ORTHOPAEDIC SURGERY 05/01/19 documented as of this encounter
--- OUTSIDE RECORDS SUMMARY | 2024-04-23 05:19 | XMS_ITS | Encounter Summary ---
Author Organization [facility] Address [address] [place] [address]. 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 [...] Contact Info) Description 04/25/2024 11:00 AM HEAD WRESTLING COACH Appointment [facility] [place] [address] Ti Bonilla MD [address] [place] [phone] 05/23/2024 3:30 PM HEAD WRESTLING COACH Office Visit [facility] [address] [place] [address] Jyoti Escobar MD [address] [place] [address] documented as of this encounter Visit Diagnoses Not on filedocumented in this encounter Care Teams Career Center Advisor Relationship Specialty Start Date End Date Vernon Mercedes MD [address] [place] [address] PCP - General FAMILY PRACTICE 10/27/15 12/02/21 Evaristo Allan MD [address] [place] [address] [place] [employer] CARDIOVASCULAR DISEASE 08/19/16 Raul Santana MD [address] [place] [address] CLINICAL CARDIAC ELECTROPHYSIOLOGY 06/16/17 Danny Blackwell MD 5 [place] [address] ORTHOPAEDIC SURGERY 05/01/19 documented as of this encounter
--- OUTSIDE RECORDS SUMMARY | 2024-04-23 05:19 | XMS_ITS | Encounter Summary ---
Author Organization [facility] Address [address] [place] [address]. [place], [place] [address] [place] [address] Care Team Providers Care Freight And Passenger Agent Name Role Phone Vernon Mercedes MD Primary Care Provider [phone] Evaristo Allan MD Unavailable Unavailabl e Raul Santana MD Unavailable Unavailabl e Danny Blackwell MD Unavailable [phone] Reason for Visit * Reason Comments Jnt Pain/Knee * Physical Medicine (Routine) - Closed Specialty Diagnoses / Procedures Referred By Charito ledbetter Referred To Contact PHYSICAL THERAPY Diagnoses Prosthetic joint implant failure, subsequent encounter Aftercare following right knee joint replacement surgery Dari Piña FNP-[place] [address] [place] [address] Phone: tel: fax: Referral ID Status Reason Start Date Expiration Date V isits Requested Visits Authorized [id number] Closed Physical Therapy 10/16/2019 11/14/2020 60 60 Encounter Details Date Type Department Care Team (Late st Contact Info) Description 10/29/2019 1:41 PM CDT - 10/29/2019 11:59 PM T Hospital Encounter [facility] [address] [place] [address] Dari Piña FNP-ANDERSON [address] [place] [address] Sylvie Benitez, HVAC SERVICE MANAGER Jnt Pain/Knee Discharge Disposition: Home or Self [...] 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) Take 1 tablet (10 mg [...] this encounter Progress Notes * Sylvie Benitez, HVAC SERVICE MANAGER - 10/29/2019 1:42 PM CDT [facility] PHYSICAL [...] CATHETERIZATION 01/04/2018 occluded prox RCA w/well developed tyno-do-ksitl collaterals lvef 55-60% ??? CARDIAC CATHETERIZATION 11/13/2018 ??? FRACTURE SURGERY ??? 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 HERNIA REPAIR ??? KNEE ARTHROPLASTY Bilateral ??? LITHOTRIPSY ??? XA ABLATION 05/19/2016 ??? XA CORONARY INTERVENTION 03/24/2018 SLAB STRIPPER PCI-mid RCA Subjective: Diagnosis: R TKA Referring [...] WBAT Objective: Treatment Performed: Therapeutic Exercise - 20637 Minutes Performed: 22 minutes Intervention: - PROM flexion/extension - heelslide with strap x 10 - DKTC on peanut ball 2x10 - quad set 10 sec x10 - SAQ assisted x 5 - supine hip abduction x20 Manual Therapy - 88422 Minutes Performed: 10 minutes Intervention: - IASTM to R quad Neuromuscular Reeducation - 11410 Minutes Performed: 10 minutes Intervention: N- Micronesian to R quad with quad sets and SAQ Therapeutic Activities - 92794 Minutes Performed: Modalities Minutes Performed: 15 Intervention: - gameready to R knee x 15 min Total Treatment Time: 57 minutes Education Performed: Educated patient to continue current HEP. ASSESSMENT: Note: Pt received Micronesian estim this afternoon to help activate his [...] st Contact Info) Description 04/25/2024 11:00 AM LASER BEAM MACHINE OPERATOR Appointment [facility] [place] [address] Ti Bonilla MD [address] [place] [phone] 05/23/2024 3:30 PM LASER BEAM MACHINE OPERATOR Office Visit [facility] [address] [place] [address] Jyoti Escobar MD [address] [place] [address] documented as of this encounter Visit Diagnoses Diagnosis Status post revision of total replacement of right knee documented in this encounter Care Teams Freight And Passenger Agent Relationship Specialty Start Date End Date Vernon Mercedes MD [address] [place] [address] PCP - General FAMILY PRACTICE 10/27/15 12/02/21 Evaristo Allan MD [address] [place] [address] [place] Product Safety Test Engineer CARDIOVASCULAR DISEASE 08/19/16 Raul Santana MD [address] [place] [address] CLINICAL CARDIAC ELECTROPHYSIOLOGY 06/16/17 Danny Blackwell MD [address] [place] [address] ORTHOPAEDIC SURGERY 05/01/19 documented as of this encounter
--- OUTSIDE RECORDS SUMMARY | 2024-04-23 05:19 | XMS_ITS | Encounter Summary ---
Author Organization [facility] Address [address] [place] [address]. [place], [place] [address] [place] [address] Care Team Providers Care Bell Captain Name Role Phone Vernon Mercedes MD Primary Care Provider [phone] Evaristo Allan MD Unavailable Unavailabl e Raul Santana MD Unavailable Unavailabl e Danny Blackwell MD Unavailable [phone] Reason for Visit * Reason Comments Jnt Pain/Knee * Physical Medicine (Routine) - Closed Specialty Diagnoses / Procedures Referred By Charito ledbetter Referred To Contact PHYSICAL THERAPY Diagnoses Prosthetic joint implant failure, subsequent encounter Aftercare following right knee joint replacement surgery Dari Piña FNP-ANDERSON [address] [place] [address] Phone: tel: fax: Referral ID Status Reason Start Date Expiration Date V isits Requested Visits Authorized [id number] Closed Physical Therapy 10/16/2019 11/14/2020 60 60 Encounter Details Date Type Department Care Team (Late st Contact Info) Description 10/24/2019 9:34 AM CDT - 10/24/2019 11:59 PM T Hospital Encounter [facility] [address] [place] [address] Dari Piña FNP-ANDERSON [address] [place] [address] Rossy Cardenas, DPT Jnt Pain/Knee Discharge Disposition: [...] 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 CARDIAC CATHETERIZATION 11/13/2018 ??? FRACTURE SURGERY ??? HERNIA REPAIR ??? KNEE ARTHROPLASTY Bilateral ??? LITHOTRIPSY ??? XA ABLATION 05/19/2016 ??? XA CORONARY INTERVENTION 03/24/2018 B[place]OON DIPPER PCI-mid RCA Subjective: Diagnosis: R TKA Referring [...] HS stretch seated Treatment Performed: Therapeutic Exercise 13705: Time: 10 Gameready x 15 min Assessment [...] strengthening, ROM, modalities Treatment/Interventions: Therapeutic Exercise - 31119, Therapeutic Activity - 22768, Neuromuscular Re-education - 02712, Manual Therapy - 85616, Gait Training - 71781, Electrical Stimulation Unattended - 04152, Vasopneumatic Compression - 57401 and Ultrasound - 50127 Frequency: 3x/week Duration: 4 weeks GOALS: Pt [...] Name: Evaristo Zelaya Patient : 1960 Patient [facility] 7[address] [facility] [address] Dept: [phone] Dept Cosigned by ISAURO Rodriguez at 10/24/2019 12:08 PM CDT documented in this encounter Plan of Treatment Upcoming Encounters Date Type Department Care Team (Late st Contact Info) Description 04/25/2024 11:00 AM PARTS COUNTER REPRESENTATIVE Appointment [facility] [place] [address] Ti Bonilla MD [address] [place] [phone] 05/23/2024 3:30 PM PARTS COUNTER REPRESENTATIVE Office Visit [facility] [address] [place] [address] Jyoti Escobar MD [address] [place] [address] documented as of this encounter Visit Diagnoses Diagnosis Status post revision of total replacement of right knee documented in this encounter Care Teams Bell Captain Relationship Specialty Start Date End Date Vernon Mercedes MD [address] [place] [address] PCP - General FAMILY PRACTICE 10/27/15 12/02/21 Evaristo Allan MD [address] [place] [address] [place] Chief Media Officer CARDIOVASCULAR DISEASE 08/19/16 Raul Santana MD [address] [place] [address] CLINICAL CARDIAC ELECTROPHYSIOLOGY 06/16/17 Danny Blackwell MD [address] [place] [address] ORTHOPAEDIC SURGERY 05/01/19 documented as of this encounter
--- OUTSIDE RECORDS SUMMARY | 2024-04-23 05:19 | XMS_ITS | Encounter Summary ---
Author Organization [facility] Address [address] [place] [address]. 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 [address] [place] [address] Ti Bonilla MD [address] [place] [address] 05/23/2024 3:30 PM LACER AND TIER Office Visit [facility] [place] [address] Jyoti Escobar MD [address] [place] [address] documented as of this encounter Procedures Procedure Name Priority Date/Time Associated Diagnosis Comments ELECTROCARDIOGRAM (NON MIDMARK ACQUIRED) Routine 09/28/2019 1:52 PM CDT Essential hypertension documented in this encounter Results * ELECTROCARDIOGRAM (NON MIDMARK ACQUIRED) (09/28/2019 1:52 PM CDT) 09/28/2019 1:52 PM CDT Narrative [facility] - 10/02/2019 7:21 AM CDT ? [facility] ?[address], [place] ??[address] ? Test Date: ?2019-09-28 Pat Name: ? ELZA MCKEON ? Department: ? Room: ? Gender: ? Male ? Cisco Administrator: ?? : ?[id number] ? Requested By: ELZA ALLAN Order Number: [id number] ?Reading MD: ?? Elza Allan ? Measurements Intervals ?[place] ? Rate: ? 89 ? P: ?11 [place]: ? 103 ?QRS: ?37 QRSD: ? 110 ?T: ?28 QT: ? 350 ? QTc: ?426 ? Interpretive Statements SINUS RHYTHM WITH SINUS ARRHYTHMIA AND SHORT [place] INTERVAL INCOMPLETE RIGHT BUNDLE BRANCH BLOCK Procedure Note Elza Allan MD - 10/02/2019 [facility] [address] [place] [address] Test Date: 2019-09-28 Pat Name: ELZA MCKEON Department: Room: Gender: Male Cisco Administrator: : [id number] Requested By: ELZA ALLAN Order Number: [id number] Jose Antonio MD: Elza Allan Measurements Intervals [place] Rate: 89 P: 11 [place]: 103 QRS: 37 QRSD: 110 T: 28 QT: 350 QTc: 426 Interpretive Statements SINUS RHYTHM WITH SINUS ARRHYTHMIA AND SHORT [place] INTERVAL INCOMPLETE RIGHT BUNDLE BRANCH BLOCK us Elza Allan MD PROCEDURES-ORDERABLE NO LENO RGE Final Result [facility] [address] [place] [address] documented in this encounter Visit Diagnoses Diagnosis Essential hypertension- Primary Unspecified essential hypertension documented in this encounter Additional Health Concerns Infection Onset Date Last Indicated Resolved Time MRSA Comment:Negative MRSA 05/201903/11/2017 03/11/2017 10/03/2019 10:08 AM CDT documented as of this encounter Care Teams Odd Job Worker Relationship Specialty Start Date End Date Vernon Mercedes MD [address] [place] [address] PCP - General FAMILY PRACTICE 10/27/15 12/02/21 Elza Allan MD [address] [place] [address] [place] Mexican Food Maker CARDIOVASCULAR DISEASE 08/19/16 Raul Santana MD [address] [place] [address] CLINICAL CARDIAC ELECTROPHYSIOLOGY 06/16/17 Danny Blackwell MD [address] [place] [address] ORTHOPAEDIC SURGERY 05/01/19 documented as of this encounter
--- OUTSIDE RECORDS SUMMARY | 2024-04-23 05:19 | XMS_ITS | Encounter Summary ---
Author Organization [facility] Address [address] [place] [address]. [place], [place] [address] [place] [address] Care Team Providers Care Pyrotechnic Mixer Name Role Phone Vernon Mercedes MD Primary Care Provider [phone] Evaristo Allan MD Unavailable Unavailabl Raul Duran MD Unavailable Unavailabl e Danny Blackwell MD Unavailable [phone] Reason for Visit * Reason Onset Date Comments Medication 10/03/2019 Pradaxa Encounter Details Date Type Department Care Team (Late st Contact Info) Description 10/03/2019 [facility]phone [facility] [address], [place] [phone] Kady Vann director private music therapy agency (Pradaxa) Social History Tobacco Use Types Packs/Day [...] st Contact Info) Description 04/25/2024 11:00 AM SHELTERED WORKSHOP EXECUTIVE DIRECTOR Appointment [facility] [address] [place] [address] Ti Bonilla MD [address] [place] [phone] 05/23/2024 3:30 PM SHELTERED WORKSHOP EXECUTIVE DIRECTOR Office Visit [facility] [address] [place] [address] Jyoti Escobar MD [address] [place] [address] documented as of this encounter Visit Diagnoses Not on filedocumented in this encounter Additional Health Concerns Infection Onset Date Last Indicated Resolved Time MRSA Comment:Negative MRSA 05/201903/11/2017 03/11/2017 10/03/2019 10:08 AM CDT documented as of this encounter Care Teams Pyrotechnic Mixer Relationship Specialty Start Date End Date Vernon Mercedes MD [address] [place] [address] PCP - General FAMILY PRACTICE 10/27/15 12/02/21 Evaristo Allan MD [address] [place] [address] [place] Hay Chopper CARDIOVASCULAR DISEASE 08/19/16 Raul Santana MD [address] [place] [address] CLINICAL CARDIAC ELECTROPHYSIOLOGY 06/16/17 Danny Blackwell MD [address] [place] [address] ORTHOPAEDIC SURGERY 05/01/19 documented as of this encounter
--- OUTSIDE RECORDS SUMMARY | 2024-04-23 05:19 | XMS_ITS | Encounter Summary ---
Author Organization [facility] Address [address] [place] [address]. [place], [place] [address] [place] [address] Care Team Providers Care School Patrol Name Role Phone Vernon Mercedes MD Primary Care Provider [phone] Evaristo Allan MD Unavailable UnavailRaul Suresh MD Unavailable Unavailabl Danny Lopes MD Unavailable [phone] Encounter Details Date Type Department Care Team (Late st Contact Info) Description 09/21/2019 [facility] Documentation [facility] [place] [phone] Sasha Rod APRN [address] [place] [address] Social History Tobacco Use Types Packs/Day Years [...] 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 No / Unsure 09/21/2019 10:49 AM CDT documented as of this encounter Progress Notes * Sasha Rod APRN - 09/21/2019 2:20 PM CDT Prescription sent to [facility]. documented in this encounter Plan of Treatment Upcoming Encounters Date Type Department Care Team (Late st Contact Info) Description 04/25/2024 11:00 AM CRNP Appointment [facility] [address] [place] [address] Ti Bonilla MD [address] [place] [address] 05/23/2024 3:30 PM CRNP Office Visit [facility] [address] [place] [address] Jyoti Escobar MD [address] [place] [address] documented as of this encounter Visit Diagnoses Diagnosis Arthritis of knee- Primary Unspecified arthropathy, lower leg documented in this encounter Additional Health Concerns Infection Onset Date Last Indicated Resolved Time MRSA Comment:Negative MRSA 05/201903/11/2017 03/11/2017 10/03/2019 10:08 AM CDT documented as of this encounter Care Teams School Patrol Relationship Specialty Start Date End Date Vernon Mercedes MD [address] [place] [address] PCP - General FAMILY PRACTICE 10/27/15 12/02/21 Evaristo Allan MD [address] [place] [address] [place] Legal Billing Specialist CARDIOVASCULAR DISEASE 08/19/16 Raul Santana MD [address] [place] [address] CLINICAL CARDIAC ELECTROPHYSIOLOGY 06/16/17 Danny Blackwell MD [address] [place] [address] ORTHOPAEDIC SURGERY 05/01/19 documented as of this encounter
--- OUTSIDE RECORDS SUMMARY | 2024-04-23 05:19 | XMS_ITS | Encounter Summary ---
Author Organization [facility] Address [address] [place] [address]. 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 [address] [place] [address] Ti Bonilla MD [address] [place] [phone] 05/23/2024 3:30 PM HEATSET WINDER OPERATOR [facility] [address] [place] [address] Jyoti Escobar MD [address] [place] [address] documented as of this encounter Visit Diagnoses Not on filedocumented in this encounter Additional Health Concerns Infection Onset Date Last Indicated Resolved Time COVID-19 Rule Out 10/12/2019 10/12/2019 10/13/2019 9:43 PM CDT documented as of this encounter Care Teams Molded Rubber Goods Cutter Relationship Specialty Start Date End Date Vernon Mercedes MD [address] [place] [address] PCP - General FAMILY PRACTICE 10/27/15 12/02/21 Evaristo Allan MD [address] [place] [address] [place] Harvest Worker Field Crop CARDIOVASCULAR DISEASE 08/19/16 Raul Santana MD [address] [place] [address] CLINICAL CARDIAC ELECTROPHYSIOLOGY 06/16/17 Danny Blackwell MD [address] [place] [address] ORTHOPAEDIC SURGERY 05/01/19 documented as of this encounter
--- OUTSIDE RECORDS SUMMARY | 2024-04-23 05:19 | XMS_ITS | Encounter Summary ---
Author Organization [facility] Address [address] [place] [address]. [place], [place] [address] [place] [address] Care Team Providers Care Publications Designer Name Role Phone Vernon Mercedes MD Primary Care Provider [phone] Evaristo Allan MD Unavailable Unavailabl Raul Duran MD Unavailable Unavailabl e Danny Blackwell MD Unavailable [phone] Reason for Visit * Reason Onset Date Comments Medication 09/21/2019 Encounter Details Date Type Department Care Team (Late st Contact Info) Description 09/21/2019 Telephone [facility] [address], [place] [phone] Kady Vann, novelties sales representative Social History Tobacco Use Types Packs/Day Years [...] to have medication sent to [facility] in [place] after his appointment today. He called and it was not there. Thanks. documented in this encounter Plan of Treatment Upcoming Encounters Date Type Department Care Team (Late st Contact Info) Description 04/25/2024 11:00 AM ANHYDROUS AMMONIA PRODUCTION SUPERVISOR Appointment [facility] [address] [place] [address] Ti Bonilla MD [address] [place] [phone] 05/23/2024 3:30 PM ANHYDROUS AMMONIA PRODUCTION SUPERVISOR Office Visit [facility] [address] [place] [phone] Jyoti Escobar MD [address] [place] [address] documented as of this encounter Visit Diagnoses Not on filedocumented in this encounter Additional Health Concerns Infection Onset Date Last Indicated Resolved Time MRSA Comment:Negative MRSA 05/201903/11/2017 03/11/2017 10/03/2019 10:08 AM CDT documented as of this encounter Care Teams Publications Designer Relationship Specialty Start Date End Date Vernon Mercedes [place] [address] PCP - General FAMILY PRACTICE 10/27/15 12/02/21 Evaristo Allan [place] [address] [place] Carver CARDIOVASCULAR DISEASE 08/19/16 Raul Sant[place] [address] CLINICAL CARDIAC ELECTROPHYSIOLOGY 06/16/17 Danny Blackwell MD [address] [place] [address] ORTHOPAEDIC SURGERY 05/01/19 documented as of this encounter
--- OUTSIDE RECORDS SUMMARY | 2024-04-23 05:19 | XMS_ITS | Encounter Summary ---
Author Organization [facility] Address [address] [place] [address]. [place], [place] [address] [place] [address] Care Team Providers Care Load Out Person Name Role Phone Vernon Mercedes MD Primary Care Provider [phone] Evaristo Allan MD Unavailable Unavailabl Raul Duran MD Unavailable Unavailabl e Danny Blackwell MD Unavailable [phone] Reason for Visit * Reason Onset Date Comments Question 10/23/2019 Encounter Details Date Type Department Care Team (Late st Contact Info) Description 10/23/2019 Telephone [facility] [address], [place] [phone] Kady Vann, RN Question Social History Tobacco [...] 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 She wants prescription sent to [facility] [place]. Jonathan TESTING MACHINE OPERATOR aware and she will send in a [...] st Contact Info) Description 04/25/2024 11:00 AM SPOT REMOVER Appointment [facility] [place] [address] Ti Bonilla MD [address] [place] [phone] 05/23/2024 3:30 PM SPOT REMOVER Office Visit [facility] [address] [place] [address] Jyoti Escobar MD [address] [place] [address] documented as of this encounter Visit Diagnoses Diagnosis Prosthetic joint implant failure, subsequent encounter- Primary documented in this encounter Care Teams Load Out Person Relationship Specialty Start Date End Date Vernon Mercedes MD [address] [place] [phone] PCP - General FAMILY PRACTICE 10/27/15 12/02/21 Evaristo Allan MD [address] [place] [address] [place] Fundraising Specialist CARDIOVASCULAR DISEASE 08/19/16 Raul Santana MD [address] [place] [address] CLINICAL CARDIAC ELECTROPHYSIOLOGY 06/16/17 Danny Blackwell MD [address] [place] [address] ORTHOPAEDIC SURGERY 05/01/19 documented as of this encounter
--- OUTSIDE RECORDS SUMMARY | 2024-04-23 05:19 | XMS_ITS | Encounter Summary ---
Author Organization [facility] Address [address] [place] [address]. 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 [place] removed from incision. Patient tolerated well. ROS: See HPI for pertinent positives Problem List: Patient Active Problem List Diagnosis ??? Essential hypertension ??? Paroxysmal atrial fibrillation (CMS/HCC) ??? [facility]CI current use of anticoagulant therapy ??? Obstructive sleep apnea ??? Hyperlipidemia ??? Diabetes (CMS/HCC) ??? Coronary artery disease ??? 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 Cardiovascular stress test abnormal ??? Arthritis of knee ??? Derangement of medial meniscus, left ??? Encounter for follow-up examination after completed treatment for conditions other than malignant neoplasm ??? Heartburn ??? Knee pain ??? Mechanical complication of internal orthopedic device, implant or graft, initial encounter ([facility]) ??? Patella-femoral syndrome ??? Pes anserine bursitis ??? Recurrent ventral incisional hernia ??? Abdominal pain ??? 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 S/P coronary artery stent placement ??? 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 Status post revision of total replacement [...] CATHETERIZATION 01/04/2018 occluded prox RCA w/well developed [id number] collaterals lvef 55-60% ??? CARDIAC CATHETERIZATION 11/13/2018 ??? FRACTURE SURGERY ??? 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 HERNIA REPAIR ??? KNEE ARTHROPLASTY Bilateral ??? LITHOTRIPSY ??? XA ABLATION 05/19/2016 ??? XA CORONARY INTERVENTION 03/24/2018 CHICK GRADER PCI-mid RCA Family History Problem Relation Name [...] Failure of total knee replacement, initial encounter ([facility]) T84.018A 996.47 PROSTHETIC JOINT MECHANICAL FAILURE XR [...] Contact Info) Description 04/25/2024 11:00 AM DESIGN ARCHITECT Appointment [facility] [address] [place] [address] Ti Bonilla MD [address] [place] [phone] 05/23/2024 3:30 PM DESIGN ARCHITECT Office Visit [facility] [address] [place] [address] Jyoti Escobar MD [address] [place] [address] documented as of this encounter Results * [...] Failure of total knee replacement, initial encounter ([facility])- Primary Bilateral hip pain Pain in joint, pelvic region and thigh Failure of total knee replacement, initial encounter ([facility]) Bilateral hip pain Pain in joint, pelvic region and thigh documented in this encounter Care Teams Sole Polisher Relationship Specialty Start Date End Date Vernon Mercedes MD [address] [place] [address] PCP - General FAMILY PRACTICE 10/27/15 12/02/21 Evaristo Allan MD [facility] [place] [address] [place] [employer] Photographs Detailer CARDIOVASCULAR DISEASE 08/19/16 Raul Santana [place] [facility] [address] CLINICAL CARDIAC ELECTROPHYSIOLOGY 06/16/17 Danny Blackwell MD [address] [place], [place] [phone] ORTHOPAEDIC SURGERY 05/01/19 documented as of this encounter
--- OUTSIDE RECORDS SUMMARY | 2024-04-23 05:19 | XMS_ITS | Encounter Summary ---
Author Organization [facility] Address [address] [place] [address]. [place], [place] [address] [place] [address] Care Team Providers Care Roll Capper Name Role Phone Vernon Mercedes MD Primary Care Provider [phone] Evaristo Allan MD Unavailable Unavailabl Raul Duran MD Unavailable Unavailabl Danny Lopes MD Unavailable [phone] Encounter Details Date Type Department Care [...] Contact Info) Description 04/25/2024 11:00 AM PLASTIC WORKER Appointment [facility] [address] [place] [address] Ti Bonilla MD [address] [place] [phone] 05/23/2024 3:30 PM PLASTIC WORKER Office Visit [facility] [address] [place] [phone] Jyoti Escobar MD [address] [place] [address] documented as of this encounter Visit Diagnoses Not on filedocumented in this encounter Care Teams Roll Capper Relationship Specialty Start Date End Date Vernon Mercedes MD [address] [place] [phone] PCP - General FAMILY PRACTICE 10/27/15 12/02/21 [place] [address] [place] Environmental Associate CARDIOVASCULAR DISEASE 08/19/16 Raul Santana MD [address] [place] [address] CLINICAL CARDIAC ELECTROPHYSIOLOGY 06/16/17 Danny Blackwell MD [address] [place] [address] ORTHOPAEDIC SURGERY 05/01/19 documented as of this encounter
--- OUTSIDE RECORDS SUMMARY | 2024-04-23 05:19 | XMS_ITS | Encounter Summary ---
Author Organization [facility] Address [address] [place] [address]. [place], [place] [address] [place] [address] Care Team Providers Care Power Plant Operations Manager Name Role Phone Vernon Mercedes MD Primary Care Provider [phone] Evaristo Allan MD Unavailable Unavailabl e Raul Santana MD Unavailable Unavailabl e Danny Blackwell MD Unavailable [phone] Reason for Visit * Reason Onset Date Comments Surgical Clearance 09/24/2019 Dr. Allan Encounter Details Date Type Department Care Team (Late st Contact Info) Description 09/24/2019 Telephone [facility] [address], [place] [phone] Kady Vann road grader operator Clearance (Dr. 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 [address] [place] [address] Ti Bonilla MD [address] [place] [phone] 05/23/2024 3:30 PM COLLAR CLOSER LOCKSTITCH Office Visit [facility] [address] [place] [address] Jyoti Escobar MD [address] [place] [address] documented as of this encounter Visit Diagnoses Not on filedocumented in this encounter Additional Health Concerns Infection Onset Date Last Indicated Resolved Time MRSA Comment:Negative MRSA 05/201903/11/2017 03/11/2017 10/03/2019 10:08 AM CDT documented as of this encounter Care Teams Power Plant Operations Manager Relationship Specialty Start Date End Date Vernon Mercedes MD [facility] [place] [address] PCP - General FAMILY PRACTICE 10/27/15 12/02/21 Evaristo Allan MD [address] [address] [place] Chicken Catcher CARDIOVASCULAR DISEASE 08/19/16 Raul Santana MD [address] [address] CLINICAL CARDIAC ELECTROPHYSIOLOGY 06/16/17 Danny Blackwell MD [address] [place] [address] ORTHOPAEDIC SURGERY 05/01/19 documented as of this encounter
--- OUTSIDE RECORDS SUMMARY | 2024-04-23 05:19 | XMS_ITS | Encounter Summary ---
Author Organization [facility] Address [address] [place] [address]. [place], [place] [address] [place] [address] Care Team Providers Care Sales Audit Clerk Name Role Phone Vernon Mercedes MD Primary Care Provider [phone] Evaristo Allan MD Unavailable Unavailabl Raul Duran MD Unavailable Unavailabl e Danny Blackwell MD Unavailable [phone] Reason for Referral * Surgical (Routine) - Closed Specialty Diagnoses / Procedures Referred By Charito ledbetter Referred To Contact Diagnoses [id number] Procedures Case request operating room: Revision RIGHT Total Knee ArthroplastyNate notifiedInpatient Danny Blackwell MD [address] [place] [address] Phone: tel: fax: Referral ID Status Reason Start Date Expiration Date Visits Re quested Visits Authorized [id number] Closed 09/21/2019 10/20/2020 1 1 Encounter Details Date Type Department Care Team (Late st Contact Info) Description 09/21/2019 Prep for Procedure [facility] [address], [facility] [place] [address] Danny Blackwell MD [address] [place] [address] Social History Tobacco Use Types Packs/Day Years [...] 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 Not on [...] st Contact Info) Description 04/25/2024 11:00 AM SONOGRAPHY TECHNICIAN Appointment [facility] [address] [place] [address] [place] [address] Ti Bonilla MD [address] [place] [phone] 05/23/2024 3:30 PM SONOGRAPHY TECHNICIAN Office Visit [facility] [place] [address] Jyoti Escobar MD [address] [place] [address] Scheduled Orders Name Type Priority Associated Diagnoses Order Schedule Case request operating room: Revision RIGHT Total Knee ArthroplastyNate notifiedInpatient Case Request Routine Once for 1 Occurrences starting 09/21/2019 until 09/21/2019 documented as of this encounter Results * URINALYSIS WI REFLEX TO CULTURE (10/08/2019 9:40 AM CDT) COLOR (U) YELLOW 10/08/2019 9:52 AM CDT [facility] TRANSPARENCY CLEAR 10/08/2019 9:52 AM CDT [facility] SPECIFIC GRAVITY (U) 1.015 1.000 - 1.025 10/08/2019 9:52 AM CDT [facility] U PH 5.5 5.0 - 8.0 10/08/2019 9:52 AM CDT [facility] LEUKOCYTES (U) NEGATIVE NEGATIVE 10/08/2019 9:52 AM CDT [facility] NITRITES NEGATIVE NEGATIVE 10/08/2019 9:52 AM CDT [facility] PROTEIN (U) NEGATIVE NEGATIVE 10/08/2019 9:52 AM CDT [facility] URINE GLUCOSE NEGATIVE NEGATIVE 10/08/2019 9:52 AM CDT [facility] KETONES MG/DL (U) NEGATIVE NEGATIVE 10/08/2019 9:52 AM CDT [facility] UROBILINOGEN 0.2 <1.0 EU/DL 10/08/2019 9:52 AM CDT [facility] BILIRUBIN (U) NEGATIVE NEGATIVE 10/08/2019 9:52 AM CDT [facility] BLOOD (U) NEGATIVE NEGATIVE 10/08/2019 9:52 AM CDT [facility] WBC/HPF 0-5 0 - 5 /HPF 10/08/2019 9:52 AM CDT [facility] EPI/HPF FEW /LPF 10/08/2019 9:52 AM CDT [facility] CULTURE & SENSITIVITY INDICATED? NOT INDICATED 10/08/2019 9:52 AM CDT [facility] URINE SPECIMEN OBTAINED BY CLEAN CATCH PROCEDURE / Unknown 10/08/2019 9:40 AM CDT us Danny Blackwell MD URINE ORDERABLES Final Result Performing Organization Address [facility]/State/ZIP Co de Phone Number [facility] [address] [place] [address], * MRSA SCREENING (10/08/2019 9:36 AM CDT) SPECIMEN SOURCE RESPIRATORY, NOSE 10/08/2019 9:32 AM CDT [facility] MRSA BY PCR NASAL METHICILLIN RESISTANT STAPH AUREUS NOT DETECTED 10/08/2019 8:31 PM CDT [facility] NASAL STRUCTURE / Unknown 10/08/2019 9:36 AM CDT us Danny Blackwell MD MICROBIOLOGY - GENERAL ORDERAB LES Final Result [facility] [address] [place] [address], [place] [phone] [facility] [address] [place] [address], * (ABNORMAL) CBC W/DIFF AUTOMATED (10/08/2019 9:34 AM CDT) WBC 6.4 4.5 - 10.8 x10'3/uL 10/08/2019 9:43 AM CDT [facility] RBC 4.69 4.50 - 6.10 x10'6/uL 10/08/2019 9:43 AM CDT [facility] HGB 12.9(L) 13.0 - 18.0 G/DL 10/08/2019 9:43 AM CDT [facility] HCT 41.1 37.0 - 52.0 % 10/08/2019 9:43 AM CDT [facility] MCV 87.6 78.0 - 100.0 FL 10/08/2019 9:43 AM CDT [facility] MCH 27.5 27.0 - 31.0 PG 10/08/2019 9:43 AM CDT [facility] MCHC 31.4(L) 33.0 - 36.0 G/DL 10/08/2019 9:43 AM CDT [facility] RDW 14.2 11.5 - 14.5 % 10/08/2019 9:43 AM CDT [facility] PLT 260 150 - 350 x10'3/uL 10/08/2019 9:43 AM CDT [facility] MPV 11.3(H) 7.4 - 10.4 FL 10/08/2019 9:43 AM CDT [facility] DIFFERENTIAL COMMENT NORMAL REFERENCE RANGE NOT ESTABLISHED FOR THE PROPORTIONAL LEUKOCYTE DIFFERENTIAL. 10/08/2019 9:43 AM CDT [facility] SEG NEUTROPHILS 58.4 % 0 9:43 AM CDT [facility] LYMPHOCYTES 27.4 % 10/08/2019 9:43 AM CDT [facility] MONOCYTES 9.6 % 10/08/2019 9:43 AM CDT [facility] EOSINOPHILS 3.0 % 10/08/2019 9:43 AM CDT [facility] BASOPHILS 1.3 % 10/08/2019 9:43 AM CDT [facility] IMMATURE GRANS % 0.3 % 10/08/19 9:43 AM CDT [facility] NRBC 0.0 % 10/08/2019 9:43 AM CDT [facility] ABS. NEUTROPHILS 3.72 1.60 - 8.30 x10'3/uL 10/08/2019 9:43 AM CDT [facility] ABS. LYMPHOCYTES 1.74 0.80 - 4.70 x10'3/uL 10/08/2019 9:43 AM CDT [facility] ABS. MONOCYTES 0.61 0.00 - 1.50 x10'3/uL 10/08/2019 9:43 AM CDT [facility] ABS. EOSINOPHILS 0.19 0.00 - 0.40 x10'3/uL 10/08/2019 9:43 AM CDT [facility] ABS. BASOPHILS 0.08 0.00 - 0.20 x10'3/uL 10/08/2019 9:43 AM CDT [facility] ABS. IMMATURE GRANULOCYTES 0.02 0.00 - 0.03 x10'3/uL 10/08/2019 9:43 AM CDT [facility] ABS. NUCLEATED RBC'S 0.00 0.00 x10'3/uL 10/08/2019 9:43 AM CDT [facility] 10/08/2019 9:34 AM CDT us Danny Blackwell MD LABORATORY Final Result [facility] [address] [place] [address], * (ABNORMAL) BASIC METABOLIC PANEL (10/08/2019 9:34 AM CDT) [facility] SODIUM S/P/B 138 136 - 145 MMOL/L 10/08/2019 9:53 AM T [facility] POTASSIUM S/P/B 4.3 3.5 - 5.1 MMOL/L 10/08/2019 9:53 AM [facility] CHLORIDE S/P/B 103 98 - 107 MMOL/L 10/08/2019 9:53 AM T [facility] CO2 27.0 21.0 - 32.0 MMOL/L 10/08/2019 9:53 AM [facility] GLUCOSE 134(H) 70 - 99 MG/DL 10/08/2019 9:53 AM [facility] Comment: FASTING GLUCOSE 100 TO 125 MG/DL IS CONSISTENT WITH IMPAIRED FASTING GLUCOSE. FASTING GLUCOSE >125 MG/DL IS CONSISTENT WITH DIABETES. RANDOM GLUCOSE >200 MG/DL WITH HYPERGLYCEMIC SYMPTOMS IS CONSISTENT WITH DIABETES. PER ADA GUIDELINES BUN 13 6 - 24 MG/DL 10/08/2019 9:53 AM [facility] CREATININE S/P/B 0.91 0.70 - 1.30 MG/DL 10/08/2019 9:53 AM [facility] CALCIUM S/P/B 9.3 8.4 - 10.5 MG/DL 10/08/2019 9:53 AM [facility] ANION GAP 8.0 5.0 - 15.0 MMOL/L 10/08/2019 9:53 AM [facility] OSMOLALITY (CALC) 288 MOSM/KG 020 9:53 AM [facility] Comment:REFERENCE RANGE NOT ESTABLISHED EGFR NON-AFR. AMER. >90 >89 ML/MIN/1. 73 M2 10/08/2019 9:53 AM T [facility] EGFR AFR. AMER. >90 >89 ML/MIN/1. 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, initial encounter ([facility]) documented in this encounter Additional Health Concerns Infection Onset Date Last Indicated Resolved Time MRSA Comment:Negative MRSA 05/201903/11/2017 03/11/2017 10/03/2019 10:08 AM CDT documented as of this encounter Care Teams Sales Audit Clerk Relationship Specialty Start Date End Date Vernon Mercedes MD [address] [place] [address] PCP - General FAMILY PRACTICE 10/27/15 12/02/21 [place] [address] [place] Director Of Cardiac Rehabilitation CARDIOVASCULAR DISEASE 08/19/16 Raul Santana MD [address] [place] [address] CLINICAL CARDIAC ELECTROPHYSIOLOGY 06/16/17 Danny Blackwell MD [address] [place] [address] ORTHOPAEDIC SURGERY 05/01/19 documented as of this encounter
--- OUTSIDE RECORDS SUMMARY | 2024-04-23 05:19 | XMS_ITS | Encounter Summary ---
Author Organization [facility] Address [address] [place] [address]. [place], [place] [address] [place] [address] Care Team Providers Care Mixer Crane Operator Name Role Phone Vernon Mercedes MD Primary Care Provider [phone] Evaristo Allan MD Unavailable UnavailRaul Suresh MD Unavailable Unavailabl Danny Lopes MD Unavailable [phone] Encounter Details Date Type Department Care Team (Latest Contact Info) Description 09/21/2019 12:32 PM CDT - 09/21/2019 11:59 PM CDT Hospital Encounter [facility] [address] [facility] [place] [address] Danny Blackwell MD [address] [place] [address] Discharge Disposition: Home or Self [...] Contact Info) Description 04/25/2024 11:00 AM MEDICAID ANALYST Appointment [facility] [address] [place] [address] Ti Bonilla MD [address] [place] [phone] 05/23/2024 3:30 PM MEDICAID ANALYST Office Visit [facility] [address] [place] [phone] Jyoti Escobar MD [address] [place] [address] documented as of this encounter Procedures Procedure [...] - 20 MM/HR 09/21/2019 1:28 PM CDT [facility] Comment:NOTE: ANEMIA, IF PRE SENT, MAY CAUSE AN ELEVATED SEDIMENTATION RATE. 09/21/2019 12:4 2 PM CDT us Danny Blackwell MD LABORATORY Final Result Performing Organization Address [facility] Co de Phone Number [facility] [address] [place] [address], * C-REACTIVE PROTEIN (09/21/2019 12:42 PM CDT) C-REACTIVE PROTEIN 0.14 <0.30 mg/dL 09/21/2019 1:00 PM CDT [facility] 09/21/2019 12:4 2 PM CDT us Danny Blackwell MD LABORATORY Final Result Performing Organization Address [facility] Co de Phone Number [facility] [address] [place] [address], * (ABNORMAL) CBC W/DIFF AUTOMATED (09/21/2019 12:42 PM CDT) WBC 7.5 4.5 - 10.8 x10'3/uL 09/21/2019 12:48 PM CDT [facility] RBC 4.81 4.50 - 6.10 x10'6/uL 09/21/2019 12:48 PM CDT [facility] HGB 13.2 13.0 - 18.0 G/DL 09/21/2019 12:48 PM CDT [facility] HCT 41.6 37.0 - 52.0 % 09/21/2019 12:48 PM CDT [facility] MCV 86.5 78.0 - 100.0 FL 09/21/2019 12:48 PM CDT [facility] MCH 27.4 27.0 - 31.0 PG 09/21/2019 12:48 PM CDT [facility] MCHC 31.7(L) 33.0 - 36.0 G/DL 09/21/2019 12:48 PM CDT [facility] RDW 13.8 11.5 - 14.5 % 09/21/2019 12:48 PM CDT [facility] PLT 288 150 - 350 x10'3/uL 09/21/2019 12:48 PM CDT [facility] MPV 11.3(H) 7.4 - 10.4 FL 09/21/2019 12:48 PM CDT [facility] DIFFERENTIAL COMMENT NORMAL REFERENCE RANGE NOT ESTABLISHED FOR THE PROPORTIONAL LEUKOCYTE DIFFERENTIAL. 09/21/2019 12:48 PM CDT [facility] SEG NEUTROPHILS 59.9 % 0 12:48 PM CDT [facility] LYMPHOCYTES 25.7 % 09/21/2019 12:48 PM CDT [facility] MONOCYTES 10.9 % 09/21/2019 12:48 PM CDT [facility] EOSINOPHILS 1.9 % 09/21/2019 12:48 PM CDT [facility] BASOPHILS 1.3 % 09/21/2019 12:48 PM CDT [facility] IMMATURE GRANS % 0.3 % 09/21/19 20 12:48 PM CDT [facility] NRBC 0.0 % 09/21/2019 12:48 PM CDT [facility] ABS. NEUTROPHILS 4.50 1.60 - 8.30 x10'3/uL 09/21/2019 12:48 PM CDT [facility] ABS. LYMPHOCYTES 1.93 0.80 - 4.70 x10'3/uL 09/21/2019 12:48 PM CDT [facility] ABS. MONOCYTES 0.82 0.00 - 1.50 x10'3/uL 09/21/2019 12:48 PM CDT [facility] ABS. EOSINOPHILS 0.14 0.00 - 0.40 x10'3/uL 09/21/2019 12:48 PM CDT [facility] ABS. BASOPHILS 0.10 0.00 - 0.20 x10'3/uL 09/21/2019 12:48 PM CDT [facility] ABS. IMMATURE GRANULOCYTES 0.02 0.00 - 0.03 x10'3/uL 09/21/2019 12:48 PM CDT [facility] ABS. NUCLEATED RBC'S 0.00 0.00 x10'3/uL 09/21/2019 12:48 PM CDT [facility] 09/21/2019 12:4 2 PM CDT Danny Blackwell MD LABORATORY Final Result Performing Organization Address City/State/[facility] Co de Phone Number [facility] [id number] [place], [place] [address] [phone] documented in this encounter Visit Diagnoses Diagnosis Prosthetic joint implant failure, subsequent encounter documented in this encounter Additional Health Concerns Infection Onset Date Last Indicated Resolved Time MRSA Comment:Negative MRSA 05/201903/11/2017 03/11/2017 10/03/2019 10:08 AM CDT documented as of this encounter Care Teams Mixer Crane Operator Relationship Specialty Start Date End Date Vernon Mercedes MD [address] [place] [phone] PCP - General FAMILY PRACTICE 10/27/15 12/02/21 Evaristo Allan MD [address] [place] [address] Muddy Conduit Cleaner CARDIOVASCULAR DISEASE 08/19/16 Raul Santana MD [address] [place] [address] CLINICAL CARDIAC ELECTROPHYSIOLOGY 06/16/17 Danny Blackwell MD [address] [place], [place] [id number] ORTHOPAEDIC SURGERY 05/01/19 documented as of this encounter
--- OUTSIDE RECORDS SUMMARY | 2024-04-23 05:19 | XMS_ITS | Encounter Summary ---
Author Organization [facility] Address [address] [place] [address]. [place], [place] [address] [place] [address] Care Team Providers Care Sales Attendant Name Role Phone Ton Mercedes MD Primary Care Provider [phone] Evaristo Allan MD Unavailable Unavailpavel e Raul Santana MD Unavailable Unavailabl e Warren Steiner MD Unavailable [phone] Reason for Visit * Auth/Cert Specialty Diagnoses / Procedures Referred By Contac t Referred To Contact Diagnoses T84.018A Procedures Revision RIGHT Total Knee ArthroplastyNate notifiedInpatient Referral ID Status Reason Start Date Expiration Date Visits Re quested Visits Authorized [id number] 1 1 Encounter Details Date Type Department Care Team (Late st Contact Info) Description 10/15/2019 12:08 PM CDT - 10/15/2019 2:15 PM CDT Surgery [place] [address] [place] [address] Warren Steiner MD [address] [place] [address] Revision RIGHT Total Knee Arthroplasty Surgery Details [...] this encounter Discharge Summaries * Dari Piña, FINANCIAL SUPERVISOR-BC - 10/18/2019 7:53 AM CDT Discharge Summary Patient: Evaristo Zelaya is a 59-year-old male : 1960 Medical Record: [id number] Admit Date: 10/15/2019 10:18 AM Admission Diagnosis: 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 Status post revision of total replacement of right knee 10/16/2019 ??? 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 S/P coronary artery stent placement 05/01/2019 ??? Failure of total knee replacement, initial encounter [place] 04/27/2019 ??? 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 Cardiovascular stress test abnormal 03/06/2018 ??? Coronary artery disease 02/13/2018 ??? Diabetes ([facility]) 02/10/2018 ??? Mechanical complication of internal orthopedic device, implant or graft, initial encounter ([facility]) 11/01/2016 ??? Hyperlipidemia 08/14/2016 ??? Pes anserine bursitis 03/09/2016 ??? 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 Obstructive sleep apnea 10/29/2015 ??? Essential hypertension 10/24/2015 has had elevated B/P readings ??? Paroxysmal atrial fibrillation ([facility]) 10/24/2015 ??? Arthritis of knee 11/25/2014 ??? [...] HYDROcodone-acetaminophen 5-325 MG tablet Commonly known as: Braddock traMADol 50 MG tablet Commonly known as: ULTRAM Where to Get Your Medications These medications were sent to [address] [address] ?? oxyCODONE ER 10 MG 12 hr abuse-deterrent tablet ?? oxyCODONE-acetaminophen 5-325 MG tablet Signed ISAURO DEE Cosigned by Warren Steiner MD at 10/19/2019 1:06 PM CDT documented in this encounter Discharge Instructions * Attachments The following attachments cannot be sent through Care Everywhere. * Total Knee Replacement Discharge Instructions (Bahamian) documented in this encounter Medications at Time [...] this encounter Progress Notes * Long Dotson, BINDER COVERSTITCH - 10/18/2019 12:18 PM CDT 10/18/19 0953 [...] discharge needs. Will do outpatient therapy at [facility]. * Kimberly Orozco RN - 10/18/2019 8:54 AM CDT Dc today * Meme Sanders RN - 10/17/2019 9:20 PM CDT Reviewed with pt pain meds are prn and she needs to let us know when she needs them * Keiry Naranjo, BINDER COVERSTITCH - 10/17/2019 4:35 PM CDT 10/17/19 1416 [...] safe return home. * Dari Sallie Piña, FINANCIAL SUPERVISOR-BC - 10/17/2019 7:39 AM CDT Daily Progress [...] hypertension ??? Paroxysmal atrial fibrillation (CMS/HCC) ??? longterm current use of anticoagulant therapy ??? Obstructive sleep apnea ??? Hyperlipidemia ??? Diabetes (CMS/HCC) ??? Coronary artery disease ??? 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 Cardiovascular stress test abnormal ??? Arthritis of knee ??? Derangement of medial meniscus, left ??? Encounter for follow-up examination after completed treatment for conditions other than malignant neoplasm ??? Heartburn ??? Knee pain ??? Mechanical complication of internal orthopedic device, implant or graft, initial encounter ([facility]) ??? Patella-femoral syndrome ??? Pes anserine bursitis ??? Recurrent ventral incisional hernia ??? Abdominal pain ??? Failure of total knee replacement, initial encounter ([facility]) ??? S/P coronary artery stent placement ??? Prosthetic knee implant failure ([facility]) ??? Status post revision [...] patient. 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 Will continue to monitor throughout shift. 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 Abnormal [...] CATHETERIZATION 01/04/2018 occluded prox RCA w/well developed wdkv-ld-qkpsc collaterals lvef 55-60% ??? CARDIAC CATHETERIZATION 11/13/2018 ??? FRACTURE SURGERY ??? HERNIA REPAIR ??? KNEE ARTHROPLASTY Bilateral ??? LITHOTRIPSY ??? XA ABLATION 05/19/2016 ??? 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 Pt is currently demonstrating decreased ability to complete ADLs and functional mobility. Pt will benefit from participation in skilled OT services to improve independence with adls and transfers to return home with at [facility] Recommended Interventions: Therapeutic Activity, Therapeutic Exercise [...] Upon OTR departure, pt in chair with BINDER COVERSTITCH present, call light within reach, and all [...] discharge. He will do outpatient therapy at [facility]. His will transporthim home. He [...] Dressing Assistance No Behavior Oriented Communication Talks;Understands Bahamian;Understands speaking Socioeconomic Needs Caregiver Needed No At [...] hypertension ??? Paroxysmal atrial fibrillation (CMS/HCC) ??? longterm current use of anticoagulant therapy ??? Obstructive sleep apnea ??? Hyperlipidemia ??? Diabetes (CMS/HCC) ??? Coronary artery disease ??? 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 Cardiovascular stress test abnormal ??? Arthritis of knee ??? Derangement of medial meniscus, left ??? Encounter for follow-up examination after completed treatment for conditions other than malignant neoplasm ??? Heartburn ??? Knee pain ??? Mechanical complication of internal orthopedic device, implant or graft, initial encounter ([facility]) ??? Patella-femoral syndrome ??? [...] this afternoon with outpatient physical therapy at [facility] in [place]. Signed ISAURO DEE 10/16/2019 Cosigned by Warren Steiner MD at 10/16/2019 9:45 AM CDT * Mau Jackson - 10/15/2019 10:18 PM CDT Patient is resting comfortably in bed with call light within reach. Will continue to monitor throughout shift. 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 CARDIAC CATHETERIZATION 11/13/2018 ??? FRACTURE SURGERY ??? HERNIA REPAIR ??? KNEE ARTHROPLASTY Bilateral ??? LITHOTRIPSY ??? XA ABLATION 05/19/2016 ??? XA CORONARY INTERVENTION 03/24/2018 VOLUNTEER ASSISTANT PCI-mid RCA Subjective: Orientation: x 4 Pain: [...] ROM set from 0-60 without pain. Notified CULINARY ARTS INSTRUCTOR to remove CPM at 1940. Transfers: Bed mobility/rolling: Not Performed this Date Supine to sit: Not Performed this Date Sit to stand: Not Performed this Date Pivot: Not Performed this Date Ambulation: Not attempted this date. Activity performed this session: Evaluation only this date. 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 Patient is demonstrating deficits in Strength, ROM, [...] during recuperation were discussed with the patient/family/personal bilingual call center representative. Reasonable alternatives to the patient's proposed procedure/surgery including benefits, risks, and side effects related to the alternatives and the risks related to not receiving the proposed care were also discussed with the patient/family/personal bilingual call center representative. Questions were answered and the patient /family/personal bilingual call center representative verbalized understanding and desires to proceed. [...] [facility]) ??? 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 Obstructive sleep apnea ??? Hyperlipidemia ??? Diabetes ([facility]) ??? Coronary artery disease of absentee-shawnee artery of absentee-shawnee heart with stable angina pectoris ([facility]) ??? 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 Cardiovascular stress test abnormal ??? Arthritis of knee ??? Derangement of medial meniscus, left ??? Encounter for follow-up examination after completed treatment for conditions other than malignant neoplasm ??? Heartburn ??? Knee pain ??? Mechanical complication of internal orthopedic device, implant or graft, initial encounter ([facility]) ??? Patella-femoral syndrome ??? Pes anserine bursitis ??? Recurrent ventral incisional hernia ??? Abdominal pain ??? Failure of total knee replacement, initial encounter ([facility]) ??? S/P coronary artery stent placement History: Past Medical History: Diagnosis Date ??? Abnormal stress test ??? Arthritis ??? Chest pain ??? 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 Diabetes ([facility]/HCC) ??? Fatigue ??? GERD (gastroesophageal reflux disease) ??? Headache ??? Hyperlipidemia ??? Hypertension has had elevated B/P readings ??? Kidney stone ??? SARAI on CPAP ??? Paroxysmal atrial fibrillation (CMS/HCC) ??? PONV (postoperative nausea and vomiting) ??? SOB (shortness of breath) Past Surgical History: Procedure Laterality Date ??? CARDIAC CATHETERIZATION 01/04/2018 occluded prox RCA w/well developed hqod-mj-jmcwm collaterals lvef 55-60% ??? FRACTURE SURGERY ??? HERNIA REPAIR ??? KNEE ARTHROPLASTY ??? LITHOTRIPSY ??? XA ABLATION 05/19/2016 ??? XA CORONARY INTERVENTION 03/24/[address] Cleary Family History Problem Relation Name [...] Not on file Occupational History ??? 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 Financial resource strain: Not [...] file Gets together: Not on file Attends pentecostal service: Not on file Active member of [...] encounter ([facility]) T84.018A 996.47 PROSTHETIC JOINT MECHANICAL FAILURE Z96.659 V43.65 4. 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 Procedure Description: Revision right total knee arthroplasty with allograft impaction grafting medial femoral condyle using a Kim attune posterior stabilized size 5 revision femur [...] notified Inpatient (Right) Surgeon(s): Warren Steiner MD Color Control Operator: None Anesthesia: Spinal Pre-Op Diagnosis: T84.018A Post-Op [...] st Contact Info) Description 04/25/2024 11:00 AM LEATHER STITCHER Appointment [facility] [address] [place] [address] Ti Bonilla MD [address] [place] [phone] 05/23/2024 3:30 PM LEATHER STITCHER Office Visit [facility] [address] [place] [phone] Jyoti Escobar MD [address] [place] [phone] documented as of this encounter Procedures Procedure [...] - 99 MG/DL 10/18/2019 11:18 AM CDT [facility] ORDERS INTERFACE 10/18/2019 11:1 6 AM CDT Warren Steiner MD POCT ORDERABLES - DEVICE Final Result Performing Organization Address [facility] de Phone Number [facility] ORDERS INTERFACE US * (ABNORMAL) POCT glucose (10/18/2019 6:05 AM CDT) GLUCOSE POC 136(H) 70 - 99 MG/DL 10/18/2019 6:18 AM CDT [facility] ORDERS INTERFACE 10/18/2019 6:05 AM CDT Warren Steiner MD POCT ORDERABLES - DEVICE Final Result Performing Organization Address [facility] de Phone Number [facility] ORDERS INTERFACE US * (ABNORMAL) POCT glucose (10/17/2019 8:33 PM CDT) GLUCOSE POC 143(H) 70 - 99 MG/DL 10/17/2019 8:40 PM CDT [facility] ORDERS INTERFACE 10/17/2019 8:33 PM CDT Warren Steiner MD POCT ORDERABLES - DEVICE Final Result Performing Organization Address [facility] de Phone Number [facility] ORDERS INTERFACE US * (ABNORMAL) POCT glucose (10/17/2019 4:10 PM CDT) GLUCOSE POC 150(H) 70 - 99 MG/DL 10/17/2019 4:22 PM CDT [facility] ORDERS INTERFACE 10/17/2019 4:10 PM CDT us Warren Steiner MD POCT ORDERABLES - DEVICE Final Result Performing Organization Address [facility] Co de Phone Number [facility] ORDERS INTERFACE US * (ABNORMAL) POCT glucose (10/17/2019 11:04 AM CDT) GLUCOSE POC 189(H) 70 - 99 MG/DL 10/17/2019 11:06 AM CDT [facility] ORDERS INTERFACE 10/17/2019 11:0 4 AM CDT us Warren Steiner MD POCT ORDERABLES - DEVICE Final Result Performing Organization Address [facility] Co de Phone Number [facility] ORDERS INTERFACE US * XR KNEE [...] [place], 10/17/2019 9:35 AM us Dari Piña FINANCIAL SUPERVISOR-BC GENERAL IMAGING Final Resu lt * XR [...] 10/17/2019 9:35 AM us Dari Sallie Piña FINANCIAL SUPERVISOR-BC GENERAL IMAGING Final Resu lt * (ABNORMAL) POCT glucose (10/17/2019 6:04 AM CDT) GLUCOSE POC 178(H) 70 - 99 MG/DL 10/17/2019 6:06 AM CDT [facility] ORDERS INTERFACE 10/17/2019 6:04 AM CDT Warren Steiner MD POCT ORDERABLES - DEVICE Final Result [facility] ORDERS INTERFACE US * (ABNORMAL) POCT glucose (10/16/2019 8:06 PM CDT) GLUCOSE POC 205(H) 70 - 99 MG/DL 10/16/2019 8:11 PM CDT [facility] ORDERS INTERFACE 10/16/2019 8:06 PM CDT Warren Steiner MD POCT ORDERABLES - DEVICE Final Result [facility] ORDERS INTERFACE US * POCT glucose (10/16/2019 3:57 PM CDT) GLUCOSE POC 75 70 - 99 MG/DL 10/16/2019 4:00 PM CDT [facility] ORDERS INTERFACE 10/16/2019 3:57 PM CDT us Warren Steiner MD POCT ORDERABLES - DEVICE Final Result Performing Organization Address [facility] Co de Phone Number [facility] ORDERS INTERFACE US * (ABNORMAL) POCT glucose (10/16/2019 11:03 AM CDT) GLUCOSE POC 148(H) 70 - 99 MG/DL 10/16/2019 11:15 AM CDT [facility] ORDERS INTERFACE 10/16/2019 11:0 3 AM CDT Warren Steiner MD POCT ORDERABLES - DEVICE Final Result Performing Organization Address [facility] Co de Phone Number [facility] ORDERS INTERFACE US * (ABNORMAL) POCT glucose (10/16/2019 6:16 AM CDT) GLUCOSE POC 214(H) 70 - 99 MG/DL 10/16/2019 6:21 AM CDT [facility] ORDERS INTERFACE 10/16/2019 6:16 AM CDT us Warren Steiner MD POCT ORDERABLES - DEVICE Final Result Performing Organization Address [facility] de Phone Number [facility] ORDERS INTERFACE US * (ABNORMAL) HEMOGLOBIN AND HEMATOCRIT - in AM X 1 (10/16/2019 5:45 AM CDT) HGB 10.4(L) 13.0 - 18.0 G/DL 10/16/2019 6:10 AM CDT [facility] HCT 32.9(L) 37.0 - 52.0 % 10/16/2019 6:10 AM CDT [facility] 10/16/2019 5:45 AM CDT us Warren Steiner MD LABORATORY Final Result Performing Organization Address [facility]/ZIP Co de Phone Number [facility] [address] [id number], [place] [phone] * (ABNORMAL) POCT glucose (10/15/2019 9:40 PM CDT) GLUCOSE POC 198(H) 70 - 99 MG/DL 10/16/2019 5:19 AM CDT [facility] ORDERS INTERFACE 10/15/2019 9:40 PM CDT Warren Steiner MD POCT ORDERABLES - DEVICE Final Result Performing Organization Address [facility] Co de Phone Number [facility] ORDERS INTERFACE US * (ABNORMAL) POCT glucose (10/15/2019 4:46 PM CDT) GLUCOSE POC 254(H) 70 - 99 MG/DL 10/15/2019 5:05 PM CDT [facility] ORDERS INTERFACE 10/15/2019 4:46 PM CDT us Warren Steiner MD POCT ORDERABLES - DEVICE Final Result Performing Organization Address [facility] Co de Phone Number [facility] ORDERS INTERFACE US * (ABNORMAL) POCT glucose (10/15/2019 3:54 PM CDT) GLUCOSE POC 223(H) 70 - 99 MG/DL 10/15/2019 4:06 PM CDT [facility] ORDERS INTERFACE 10/15/2019 3:54 PM CDT us Warren Steiner MD POCT ORDERABLES - DEVICE Final Result Performing Organization Address [facility] Co de Phone Number [facility] ORDERS INTERFACE US * CULTURE, TISSUE W/GRAM STAIN (10/15/2019 12:52 PM CDT) SPEC DESCRIPTION KNEE,RIGHT 10/15/2019 1:18 PM CDT [facility] SPECIAL REQUESTS NO SPECIAL REQUEST 10/15/2019 1:18 PM CDT [facility] GRAM STAIN RESULT NO ORGANISMS SEEN 10/15/2019 3:44 PM CDT [facility] CULTURE RESULT NO GROWTH 5 DAYS 10/21/2019 10:17 AM CDT [facility] Tissue specimen (specimen) STRUCTURE OF RIGHT KNEE REGION / Unknown 10/15/2019 1:16 PM CDT us Warren Steiner MD MICROBIOLOGY - GENERAL ORDERAB LES Final Result Performing Organization Address [facility] Co de Phone Number [facility] [address] [place] [address], [phone] [facility] [address] [place] [phone], * CULTURE, FUNGUS (10/15/2019 12:52 PM CDT) SPEC DESCRIPTION KNEE,RIGHT: MEDIAL FEMORAL CONDYLE 10/15/2019 1:18 PM CDT [facility] SPECIAL REQUESTS NO SPECIAL REQUEST 10/15/2019 1:18 PM CDT [facility] STAIN RESULT: NO YEAST OR FUNGAL ELEMENTS SEEN 10/17/2019 4:37 PM CDT [facility] CULTURE RESULT NO FUNGUS ISOLATED AFTER 4 WEEKS 11/13/2019 5:57 PM CDT [facility] Tissue specimen (specimen) STRUCTURE OF RIGHT KNEE REGION / Unknown 10/15/2019 1:16 PM CDT us Warren Steiner MD MICROBIOLOGY - GENERAL ORDERAB LES Final Result Performing Organization Address [facility] Co de Phone Number [facility] [address] [place] [address], [phone] [facility] [address] [place] [address], [place] [phone] * CULTURE, ANAEROBIC (10/15/2019 12:52 PM CDT) SPEC DESCRIPTION KNEE,RIGHT 10/15/2019 1:18 PM CDT [facility] SPECIAL REQUESTS NO SPECIAL REQUEST 10/15/2019 1:18 PM CDT [facility] CULTURE RESULT NO ANAEROBES ISOLATED 10/21/2019 10:16 AM CDT [facility] Tissue specimen (specimen) STRUCTURE OF RIGHT KNEE REGION / Unknown 10/15/2019 1:16 PM CDT Warren Steiner MD MICROBIOLOGY - GENERAL ORDERAB LES Final Result [facility] [address] [place] [address], [place] [phone] [facility] Counts include 234 beds at the [facility] [place] [address], [place] [phone] * CULTURE, TISSUE W/GRAM STAIN (10/15/2019 12:52 PM CDT) SPEC DESCRIPTION KNEE,RIGHT 10/15/2019 1:05 PM CDT [facility] SPECIAL REQUESTS NO SPECIAL REQUEST 10/15/2019 1:05 PM CDT [facility] GRAM STAIN RESULT NO ORGANISMS SEEN 10/15/2019 3:43 PM CDT [facility] CULTURE RESULT RARE STAPHYLOCOCCU S, COAGULASE NEGATIVE 10/19/2019 9:21 AM CDT [facility] Tissue specimen (specimen) STRUCTURE OF RIGHT [...] ORDERAB LES Final Result Performing Organization Address City/[facility]/ZIP Co de Phone Number [facility] [address] [place] [address], [place] [phone] [facility] [address] [place] [address], * CULTURE, TISSUE W/GRAM STAIN (10/15/2019 12:52 PM CDT) SPEC DESCRIPTION KNEE,RIGHT 10/15/2019 1:05 PM CDT [facility] SPECIAL REQUESTS NO SPECIAL REQUEST 10/15/2019 1:05 PM CDT [facility] GRAM STAIN RESULT NO ORGANISMS SEEN 10/15/2019 3:43 PM CDT [facility] CULTURE RESULT NO GROWTH 5 DAYS 10/21/2019 10:15 AM CDT [facility] Tissue specimen (specimen) STRUCTURE OF RIGHT KNEE REGION / Unknown 10/15/2019 12:48 PM CDT Warren Steiner MD MICROBIOLOGY - GENERAL ORDERAB LES Final Result [facility] [address] [place] [address], [phone] [facility] [address] [place] [phone], * CULTURE, TISSUE W/GRAM STAIN (10/15/2019 12:52 PM CDT) SPEC DESCRIPTION KNEE,RIGHT 10/15/2019 1:05 PM CDT [facility] SPECIAL REQUESTS NO SPECIAL REQUEST 10/15/2019 1:05 PM CDT [facility] GRAM STAIN RESULT NO ORGANISMS SEEN 10/15/2019 3:43 PM CDT [facility] CULTURE RESULT RARE ALPHA STREPTOCOCCUS 10/18/2019 9:23 AM CDT [facility] Tissue specimen (specimen) STRUCTURE OF RIGHT KNEE REGION / Unknown 10/15/2019 12:47 PM CDT Narrative Organism Antibiotic Method Susceptibility Alpha streptococcus CEFOTAXIME TOSHA (ETEST) 0.064: Sensitive Alpha streptococcus PENICILLIN TOSHA (ETEST) 0.094: Sensitive us Warren Steiner MD MICROBIOLOGY - GENERAL ORDERAB LES Final Result Performing Organization Address [facility]/ZIP Co de Phone Number [facility] [address] [place] [address], [phone] [facility] [address] [place] [address], * CULTURE, FUNGUS (10/15/2019 12:52 PM CDT) SPEC DESCRIPTION KNEE,RIGHT: MEDIAL 10/15/2019 1:05 PM CDT [facility] SPECIAL REQUESTS NO SPECIAL REQUEST 10/15/2019 1:05 PM CDT [facility] STAIN RESULT: NO YEAST OR FUNGAL ELEMENTS SEEN 10/17/2019 4:37 PM CDT [facility] CULTURE RESULT NO FUNGUS ISOLATED AFTER 4 WEEKS 11/13/2019 5:57 PM CDT [facility] Tissue specimen (specimen) STRUCTURE OF RIGHT KNEE REGION / Unknown 10/15/2019 12:52 PM CDT us Warren Steiner MD MICROBIOLOGY - GENERAL ORDERAB LES Final Result Performing Organization Address [facility] Co de Phone Number [facility] [address] [place] [address], [phone] [facility] [address] [place] [address], [place] [phone] * CULTURE, FUNGUS (10/15/2019 12:52 PM CDT) SPEC DESCRIPTION KNEE,RIGHT: INFERIOR 10/15/2019 1:05 PM CDT [facility] SPECIAL REQUESTS NO SPECIAL REQUEST 10/15/2019 1:05 PM CDT [facility] STAIN RESULT: NO YEAST OR FUNGAL ELEMENTS SEEN 10/17/2019 4:36 PM CDT [facility] CULTURE RESULT NO FUNGUS ISOLATED AFTER 4 WEEKS 11/13/2019 5:57 PM CDT [facility] Tissue specimen (specimen) STRUCTURE OF RIGHT KNEE REGION / Unknown 10/15/2019 12:48 PM CDT us Warren Steiner MD MICROBIOLOGY - GENERAL ORDERAB LES Final Result Performing Organization Address [facility] Co de Phone Number [facility] [address] [place] [address], [place] [phone] [facility] [address] [place] [address], [place] [phone] * CULTURE, FUNGUS (10/15/2019 12:52 PM CDT) SPEC DESCRIPTION KNEE,RIGHT: SUPERIOR 10/15/2019 1:05 PM CDT [facility] SPECIAL REQUESTS NO SPECIAL REQUEST 10/15/2019 1:05 PM CDT [facility] STAIN RESULT: NO YEAST OR FUNGAL ELEMENTS SEEN 10/17/2019 4:36 PM CDT [facility] CULTURE RESULT NO FUNGUS ISOLATED AFTER 4 WEEKS 11/13/2019 5:57 PM CDT [facility] Tissue specimen (specimen) STRUCTURE OF RIGHT KNEE REGION / Unknown 10/15/2019 12:47 PM CDT us Warren Steiner MD MICROBIOLOGY - GENERAL ORDERAB LES Final Result Performing Organization Address [facility] Co de Phone Number [facility] [address] [place] [address], [place] [phone] [facility] [address] [place] [address], [place] [phone] * CULTURE, FUNGUS (10/15/2019 12:52 PM CDT) SPEC DESCRIPTION KNEE,RIGHT: FLUID 10/15/2019 1:05 PM CDT [facility] SPECIAL REQUESTS NO SPECIAL REQUEST 10/15/2019 1:05 PM CDT [facility] STAIN RESULT: NO YEAST OR FUNGAL ELEMENTS SEEN 10/17/2019 4:36 PM CDT [facility] CULTURE RESULT NO FUNGUS ISOLATED AFTER 4 WEEKS 11/13/2019 5:57 PM CDT [facility] Body fluid specimen (specimen) STRUCTURE OF RIGHT KNEE REGION / Unknown 10/15/2019 12:41 PM CDT Warren Steiner MD MICROBIOLOGY - GENERAL ORDERAB LES Final Result Performing Organization Address [facility]/ZIP Co de Phone Number [facility] [address] [place] [address], [place] [phone] [facility] [address] [place] [address], * CULTURE, BODY FLUID W/ GRAM STAIN (10/15/2019 12:52 PM CDT) SPEC DESCRIPTION KNEE,RIGHT 10/15/2019 1:05 PM CDT [facility] SPECIAL REQUESTS NO SPECIAL REQUEST 10/15/2019 1:05 PM CDT [facility] GRAM STAIN RESULT NO ORGANISMS SEEN 10/15/2019 3:42 PM CDT [facility] CULTURE RESULT NO GROWTH 5 DAYS 10/21/2019 10:13 AM CDT [facility] Body fluid specimen (specimen) STRUCTURE OF RIGHT KNEE REGION / Unknown 10/15/2019 12:41 PM CDT Warren Steiner MD MICROBIOLOGY - GENERAL ORDERAB LES Final Result Performing Organization Address [facility] Co de Phone Number [facility] [address] [place] [address], [place] [phone] [facility] [address] [place] [address], [place] [phone] * CULTURE, ANAEROBIC (10/15/2019 12:52 PM CDT) SPEC DESCRIPTION KNEE,RIGHT 10/15/2019 1:05 PM CDT [facility] SPECIAL REQUESTS NO SPECIAL REQUEST 10/15/2019 1:05 PM CDT [facility] CULTURE RESULT NO ANAEROBES ISOLATED 10/21/2019 10:16 AM CDT [facility] Tissue specimen (specimen) STRUCTURE OF RIGHT KNEE REGION / Unknown 10/15/2019 12:52 PM CDT Warren Steiner MD MICROBIOLOGY - GENERAL ORDERAB LES Final Result Performing Organization Address [facility] Co de Phone Number [facility] [address] [place] [address], [place] [phone] [facility] [address] [place] [address], * CULTURE, ANAEROBIC (10/15/2019 12:52 PM CDT) SPEC DESCRIPTION KNEE,RIGHT 10/15/2019 1:05 PM CDT [facility] SPECIAL REQUESTS NO SPECIAL REQUEST 10/15/2019 1:05 PM CDT [facility] CULTURE RESULT NO ANAEROBES ISOLATED 10/21/2019 10:15 AM CDT [facility] Tissue specimen (specimen) STRUCTURE OF RIGHT KNEE REGION / Unknown 10/15/2019 12:48 PM CDT us Warren Steiner MD MICROBIOLOGY - GENERAL ORDERAB LES Final Result Performing Organization Address [facility] Co de Phone Number [facility] [address] [place] [address], [place] [phone] [facility] [address] [place] [address], [place] [phone] * CULTURE, ANAEROBIC (10/15/2019 12:52 PM CDT) SPEC DESCRIPTION KNEE,RIGHT 10/15/2019 1:05 PM CDT [facility] SPECIAL REQUESTS NO SPECIAL REQUEST 10/15/2019 1:05 PM CDT [facility] CULTURE RESULT NO ANAEROBES ISOLATED 10/21/2019 10:14 AM CDT [facility] Tissue specimen (specimen) STRUCTURE OF RIGHT KNEE REGION / Unknown 10/15/2019 12:47 PM CDT us Warren Steiner MD MICROBIOLOGY - GENERAL ORDERAB LES Final Result Performing Organization Address [facility] de Phone Number [facility] [address] [place] [address], [phone] [facility] [address] [place] [address], * CULTURE, ANAEROBIC (10/15/2019 12:52 PM CDT) SPEC DESCRIPTION KNEE,RIGHT 10/15/2019 1:05 PM CDT [facility] SPECIAL REQUESTS NO SPECIAL REQUEST 10/15/2019 1:05 PM CDT [facility] CULTURE RESULT NO ANAEROBES ISOLATED 10/20/2019 6:51 AM CDT [facility] Body fluid specimen (specimen) STRUCTURE OF RIGHT KNEE REGION / Unknown 10/15/2019 12:41 PM CDT us Warren Steiner MD MICROBIOLOGY - GENERAL ORDERAB LES Final Result Performing Organization Address [facility] de Phone Number [facility] [address] [place] [address], [phone] [facility] [address] [place] [address], * CULTURE, TISSUE W/GRAM STAIN (10/15/2019 12:44 PM CDT) SPEC DESCRIPTION KNEE,RIGHT 10/15/2019 2:06 PM CDT [facility] SPECIAL REQUESTS NO SPECIAL REQUEST 10/15/2019 2:06 PM CDT [facility] GRAM STAIN RESULT NO ORGANISMS SEEN 10/15/2019 3:43 PM CDT [facility] CULTURE RESULT NO GROWTH 5 DAYS 10/21/2019 10:14 AM CDT [facility] Tissue specimen (specimen) STRUCTURE OF RIGHT KNEE REGION / Unknown 10/15/2019 12:44 PM CDT us Warren Steiner MD MICROBIOLOGY - GENERAL ORDERAB LES Final Result Performing Organization Address [facility] Co de Phone Number [facility] [address] [place] [address], [place] [phone] [facility] [address] [place] [address], [place] [phone] * CULTURE, FUNGUS (10/15/2019 12:44 PM CDT) SPEC DESCRIPTION KNEE,RIGHT: LATERAL 10/15/2019 2:06 PM CDT [facility] SPECIAL REQUESTS NO SPECIAL REQUEST 10/15/2019 2:06 PM CDT [facility] STAIN RESULT: NO YEAST OR FUNGAL ELEMENTS SEEN 10/17/2019 4:36 PM CDT [facility] CULTURE RESULT NO FUNGUS ISOLATED AFTER 4 WEEKS 11/13/2019 5:57 PM CDT [facility] Tissue specimen (specimen) STRUCTURE OF RIGHT KNEE REGION / Unknown 10/15/2019 12:44 PM CDT us Warren Steiner MD MICROBIOLOGY - GENERAL ORDERAB LES Final Result Performing Organization Address [facility] Co de Phone Number [facility] [address] [place] [address], [place] [phone] [facility] [address] [place] [address], [place] [phone] * CULTURE, ANAEROBIC (10/15/2019 12:44 PM CDT) SPEC DESCRIPTION KNEE,RIGHT 10/15/2019 2:06 PM CDT [facility] SPECIAL REQUESTS NO SPECIAL REQUEST 10/15/2019 2:06 PM CDT [facility] CULTURE RESULT NO ANAEROBES ISOLATED 10/21/2019 10:14 AM CDT [facility] Tissue specimen (specimen) STRUCTURE OF RIGHT KNEE REGION / Unknown 10/15/2019 12:44 PM CDT us Warren Steiner MD MICROBIOLOGY - GENERAL ORDERAB LES Final Result [facility] [address] [place] [address], [place] [phone] [facility] [address] [place] [address], [place] [phone] documented in this encounter Visit Diagnoses Not [...] Post-Op 0319 (New Bag - Provider: Mau Jackson)8769 (Infusion Stop Time - Provider: Mau Jackson) [...] 08 (Given - Provider: Kimberly Orozco RN) insulin [...] Delgado RN)1610 (Not Given - Provider: Ashley Dlegado RN - Reason: Order parameters not met) [...] Until Discontinued 08 (Given - Provider: Ashley Delagdo RN) 075 (Given - Provider: Ashley Delgado RN) 0803 (Given - Provider: Kimberly Orozco RN) tamsulosin (FLOMAX) capsule 0.4 mg 0.4 mg, Oral, Daily, First dose on Tue10/15/19 at 1700, Until Discontinued 0825 (Given - Provider: Ashley Delgado RN) 0758 (Given - Provider: Ashley Delgado RN) 0803 (Given - Provider: Kimberly Oorzco RN) Continuous Medication Order 10/16/2019 10/17/2019 10/18/2019 [...] hours., Post-Op 08 (Given - Provider: Ashley Delgado RN)121 (Given - Provider: Ashley Delgado RN) [...] Post-Op documented in this encounter Care Teams Sales Attendant Relationship Specialty Start Date End Date [place] [place] [phone] PCP - General FAMILY PRACTICE 10/27/15 12/02/21 Evar[place] [place] [phone] [employer] Principal CARDIOVASCULAR DISEASE 08/19/16 Raul Sant[place] [address] [phone] CLINICAL CARDIAC ELECTROPHYSIOLOGY 06/16/17 Warren Steiner MD [address] [place] [address] ORTHOPAEDIC SURGERY 05/01/19 documented as of this encounter
--- OUTSIDE RECORDS SUMMARY | 2024-04-23 05:19 | XMS_ITS | Encounter Summary ---
Author Organization [facility] Address [address] [place] [address]. 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 [...] Contact Info) Description 04/25/2024 11:00 AM RAIL LOADER Appointment [facility] [address] [place] [address] Ti Bonilla MD [address] [place] [phone] 05/23/2024 3:30 PM RAIL LOADER Office Visit [facility] [address] [place] [phone] Jyoti Escobar MD [address] [place] [phone] documented as of this encounter Visit Diagnoses Not on filedocumented in this encounter Care Teams Pre K Special Education Teacher Relationship Specialty Start Date End Date Vernon Mercedes MD [address] [place] [phone] PCP - General FAMILY PRACTICE 10/27/15 12/02/21 [place] [phone] [place] Assistant Shift Supervisor CARDIOVASCULAR DISEASE 08/19/16 Raul Santana MD [address] [place] [address] CLINICAL CARDIAC ELECTROPHYSIOLOGY 06/16/17 Danny Blackwell MD [address] [place] [address] ORTHOPAEDIC SURGERY 05/01/19 documented as of this encounter
--- OUTSIDE RECORDS SUMMARY | 2024-04-23 05:19 | XMS_ITS | Encounter Summary ---
Author Organization [facility] Address [address] [place] [address]. [place], [place] [address] [place] [address] Care Team Providers Care Kettle Worker Name Role Phone Vernon Mercedes MD Primary Care Provider [phone] Evaristo Allan MD Unavailable Unavailabl e Raul Santana MD Unavailable Unavailabl e Danny Blackwell MD Unavailable [phone] Reason for Visit * Reason Comments Jnt Pain/Knee * Physical Medicine (Routine) - Closed Specialty Diagnoses / Procedures Referred By Charito ledbetter Referred To Contact PHYSICAL THERAPY Diagnoses Prosthetic joint implant failure, subsequent encounter Aftercare following right knee joint replacement surgery Dari Piña FNP-[facility] [address] [place] [address] Phone: tel: fax: Referral ID Status Reason Start Date Expiration Date V isits Requested Visits Authorized [id number] Closed Physical Therapy 10/16/2019 11/14/2020 60 60 Encounter Details Date Type Department Care Team (Late st Contact Info) Description 10/26/2019 7:30 AM CDT - 10/26/2019 9:18 AM CDT Hospital Encounter [facility] [address] [place] [address] Dari Piña FNP-[facility] [address] [place] [address] Rossy Cardenas, DPT Jnt Pain/Knee Discharge Disposition: [...] 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 CARDIAC CATHETERIZATION 11/13/2018 ??? FRACTURE SURGERY ??? HERNIA REPAIR ??? KNEE ARTHROPLASTY Bilateral ??? LITHOTRIPSY ??? XA ABLATION 05/19/2016 ??? XA CORONARY INTERVENTION 03/24/2018 ELECTRICAL ENGINEERING DRAFTING OFFICER PCI-mid RCA Subjective: Diagnosis: R TKA Referring [...] WBAT Objective: Treatment Performed: Therapeutic Exercise - 74522 Minutes Performed: 29 Intervention: - PROM flexion/extension - heelslide with strap x 10 - DKTC on peanut ball 2x10 - quad set 10 sec x10 - SAQ assisted x 5 - supine hip abduction x20 Manual Therapy - 86007 Minutes Performed: 10 Intervention: - IASTM to R quad Neuromuscular Reeducation - 90326 Minutes Performed: Intervention: Therapeutic Activities - 26480 Minutes Performed: Modalities Minutes Performed: 15 Intervention: [...] Contact Info) Description 04/25/2024 11:00 AM MANAGER [place] Appoint[address] [facility] [address] [place] [address] Ti Bonilla MD [address] [place] [phone] 05/23/2024 3:30 PM MANAGER [place] Office Visit [facility] [address] [place] [address] Jyoti Escobar MD [address] [place] [address] documented as of this encounter Visit Diagnoses Diagnosis Status post revision of total replacement of right knee documented in this encounter Care Teams Kettle Worker Relationship Specialty Start Date End Date Vernon Mercedes MD [address] [place] [phone] PCP - General FAMILY PRACTICE 10/27/15 12/02/21 [place] [address] Light Cleaner CARDIOVASCULAR DISEASE 08/19/16 [place] [address] CLINICAL CARDIAC ELECTROPHYSIOLOGY 06/16/17 Danny Blackwell MD [address] [place] [address] ORTHOPAEDIC SURGERY 05/01/19 documented as of this encounter
--- OUTSIDE RECORDS SUMMARY | 2024-04-23 05:19 | XMS_ITS | Encounter Summary ---
Author Organization [facility] Address [address] [place] [address]. [place], [place] [address] [place] [address] Care Team Providers Care Tool Design Drafter Name Role Phone Vernon Mercedes MD Primary Care Provider [phone] Evaristo Allan MD Unavailable Unavailabl Raul Duran MD Unavailable Unavailabl Danny Lopes MD Unavailable [phone] Encounter Details Date Type Department Care [...] st Contact Info) Description 04/25/2024 11:00 AM RESEARCH CLERK Appointment [facility] [address] [place] [address] Ti Bonilla MD [address] [place] [phone] 05/23/2024 3:30 PM RESEARCH CLERK Office Visit [facility] [address] [place] [phone] Jyoti Escobar MD [address] [place] [phone] documented as of this encounter Visit Diagnoses Not on filedocumented in this encounter Care Teams Tool Design Drafter Relationship Specialty Start Date End Date Vernon Mercedes MD [address] [place] [phone] PCP - General FAMILY PRACTICE 10/27/15 12/02/21 [place] [phone] [place] Cell Efficiency Supervisor CARDIOVASCULAR DISEASE 08/19/16 Raul Santana MD [address] [place] [address] CLINICAL CARDIAC ELECTROPHYSIOLOGY 06/16/17 Danny Blackwell MD [address] [place] [address] ORTHOPAEDIC SURGERY 05/01/19 documented as of this encounter
--- OUTSIDE RECORDS SUMMARY | 2024-04-23 05:19 | XMS_ITS | Encounter Summary ---
Author Organization [facility] Address [address] [place] [address]. [place] [address] [place] [address] Care Team Providers Care Graphics Coordinator Name Role Phone Vernon Mercedes MD Primary Care Provider [phone] Evaristo Allan MD Unavailable UnavailRaul Suresh MD Unavailable Unavailabl Danny Lopes MD Unavailable [phone] Reason for Visit * Reason Onset Date Comments Appointment Request 09/24/2019 Encounter Details Date Type Department Care Team (Late st Contact Info) Description 09/24/2019 [facility] [address] [place] [address] Evaristo Allan MD Appointment Request [...] 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 * Angela Clay RN - 09/24/2019 4:17 [...] Contact Info) Description 04/25/2024 11:00 AM RESIDENTIAL COLLECTIONS Appointment [facility] [address] [place] [address] Ti Bonilla MD [address] [place] [phone] 05/23/2024 3:30 PM RESIDENTIAL COLLECTIONS Office Visit [facility] [address] [place] [address] Jyoti Escobar MD [address] [place] [address] documented as of this encounter Visit Diagnoses Not on filedocumented in this encounter Additional Health Concerns Infection Onset Date Last Indicated Resolved Time MRSA Comment:Negative MRSA 05/201903/11/2017 03/11/2017 10/03/2019 10:08 AM CDT documented as of this encounter Care Teams Graphics Coordinator Relationship Specialty Start Date End Date Vernon Mercedes MD [address] [place] [phone] PCP - General FAMILY PRACTICE 10/27/15 12/02/21 Eavristo Allan MD [address] [place] [phone] [place] [employer] Roller Picker CARDIOVASCULAR DISEASE 08/19/16 Raul Santana MD [address] [place] [phone] CLINICAL CARDIAC ELECTROPHYSIOLOGY 06/16/17 Danny Blackwell MD [address] [place] [address] ORTHOPAEDIC SURGERY 05/01/19 documented as of this encounter
--- OUTSIDE RECORDS SUMMARY | 2024-04-23 05:19 | XMS_ITS | Encounter Summary ---
Author Organization [facility] Address [address] [place] [address]. [place], [place] [address] [place] [address] Care Team Providers Care Sweatband Shaper Name Role Phone Vrenon Mercedes MD Primary Care Provider [phone] Evaristo Allan MD Unavailable UnavailRaul Suresh MD Unavailable Unavailabl Danny Lopes MD Unavailable [phone] Encounter Details Date Type Department Care Team (Latest Contact Info) Description 10/08/2019 9:25 AM CDT - 10/08/2019 11:59 PM CDT Hospital Encounter [facility] [address] [facility] [place] [address] Danny Blackwell MD [address] [place] [address] Discharge Disposition: Home or Self [...] 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 [...] Contact Info) Description 04/25/2024 11:00 AM MAINTENANCE MILLWRIGHT Appointment [facility] [address] [facility] [place] [address] Ti Bonilla MD [address] [place] [phone] 05/23/2024 3:30 PM MAINTENANCE MILLWRIGHT Office Visit [facility] [address] [place] [address] Jyoti Escobar MD [address] [place] [phone] documented as of this encounter Procedures Procedure [...] GLYCOSYLATED Routine 10/08/2019 9:34 AM CDT Diabetes ([facility] HHS/HCC) BASIC METABOLIC PANEL Routine 10/08/2019 9:34 [...] COLOR (U) YELLOW 10/08/2019 9:52 AM CDT [facility] TRANSPARENCY CLEAR 10/08/2019 9:52 AM CDT [facility] SPECIFIC GRAVITY (U) 1.015 1.000 - 1.025 10/08/2019 9:52 AM CDT [facility] U PH 5.5 5.0 - 8.0 10/08/2019 9:52 AM CDT [facility] LEUKOCYTES (U) NEGATIVE NEGATIVE 10/08/2019 9:52 AM CDT [facility] NITRITES NEGATIVE NEGATIVE 10/08/2019 9:52 AM CDT [facility] PROTEIN (U) NEGATIVE NEGATIVE 10/08/2019 9:52 AM CDT [facility] URINE GLUCOSE NEGATIVE NEGATIVE 10/08/2019 9:52 AM CDT [facility] KETONES MG/DL (U) NEGATIVE NEGATIVE 10/08/2019 9:52 AM CDT [facility] UROBILINOGEN 0.2 <1.0 EU/DL 10/08/2019 9:52 AM CDT [facility] BILIRUBIN (U) NEGATIVE NEGATIVE 10/08/2019 9:52 AM CDT [facility] BLOOD (U) NEGATIVE NEGATIVE 10/08/2019 9:52 AM CDT [facility] WBC/HPF 0-5 0 - 5 /HPF 10/08/2019 9:52 AM CDT [facility] EPI/HPF FEW /LPF 10/08/2019 9:52 AM CDT [facility] CULTURE & SENSITIVITY INDICATED? NOT INDICATED 10/08/2019 9:52 AM CDT [facility] URINE SPECIMEN OBTAINED BY CLEAN CATCH PROCEDURE / Unknown 10/08/2019 9:40 AM CDT us Danny Blackwell MD URINE ORDERABLES Final Result Performing Organization Address City/[facility]/ZIP Co de Phone Number [facility] [address] [place] [address], * MRSA SCREENING (10/08/2019 9:36 AM CDT) SPECIMEN SOURCE RESPIRATORY, NOSE 10/08/2019 9:32 AM CDT [facility] MRSA BY PCR NASAL METHICILLIN RESISTANT STAPH AUREUS NOT DETECTED 10/08/2019 8:31 PM CDT [facility] NASAL STRUCTURE / Unknown 10/08/2019 9:36 AM CDT us Danny Blackwell MD MICROBIOLOGY - GENERAL ORDERAB LES Final Result Performing Organization Address City/[facility] Co de Phone Number [facility] [address] [place] [address], [phone] [facility] [address] [place] [address], * (ABNORMAL) HEMOGLOBIN, GLYCOSYLATED (10/08/2019 9:34 AM CDT) HGB A1C 8.7(H) <5.7 % 10/08/2019 3:36 PM CDT [facility] Comment: 5.7 TO 6.4% INCREASED RISK OF DIABETES > OR = 6.5% CONSISTENT WITH DIABETES PER ADA GUIDELINES ESTIMATED AVG GLUCOSE 203(H) 70 - 140 MG/DL 10/08/2019 3:36 PM CDT [facility] 10/08/2019 9:34 AM CDT Danny Blackwell MD LABORATORY Final Result [facility] [address] [place] [address], * (ABNORMAL) CBC W/DIFF AUTOMATED (10/08/2019 9:34 AM CDT) WBC 6.4 4.5 - 10.8 x10'3/uL 10/08/2019 9:43 AM CDT [facility] RBC 4.69 4.50 - 6.10 x10'6/uL 10/08/2019 9:43 AM CDT [facility] HGB 12.9(L) 13.0 - 18.0 G/DL 10/08/2019 9:43 AM CDT [facility] HCT 41.1 37.0 - 52.0 % 10/08/2019 9:43 AM CDT [facility] MCV 87.6 78.0 - 100.0 FL 10/08/2019 9:43 AM CDT [facility] MCH 27.5 27.0 - 31.0 PG 10/08/2019 9:43 AM CDT [facility] MCHC 31.4(L) 33.0 - 36.0 G/DL 10/08/2019 9:43 AM CDT [facility] RDW 14.2 11.5 - 14.5 % 10/08/2019 9:43 AM CDT [facility] PLT 260 150 - 350 x10'3/uL 10/08/2019 9:43 AM CDT [facility] MPV 11.3(H) 7.4 - 10.4 FL 10/08/2019 9:43 AM CDT [facility] DIFFERENTIAL COMMENT NORMAL REFERENCE RANGE NOT ESTABLISHED FOR THE PROPORTIONAL LEUKOCYTE DIFFERENTIAL. 10/08/2019 9:43 AM CDT [facility] SEG NEUTROPHILS 58.4 % 0 9:43 AM CDT [facility] LYMPHOCYTES 27.4 % 10/08/2019 9:43 AM CDT [facility] MONOCYTES 9.6 % 10/08/2019 9:43 AM CDT [facility] EOSINOPHILS 3.0 % 10/08/2019 9:43 AM CDT [facility] BASOPHILS 1.3 % 10/08/2019 9:43 AM CDT [facility] IMMATURE GRANS % 0.3 % 10/08/19 20 9:43 AM CDT [facility] NRBC 0.0 % 10/08/2019 9:43 AM CDT [facility] ABS. NEUTROPHILS 3.72 1.60 - 8.30 x10'3/uL 10/08/2019 9:43 AM CDT [facility] ABS. LYMPHOCYTES 1.74 0.80 - 4.70 x10'3/uL 10/08/2019 9:43 AM CDT [facility] ABS. MONOCYTES 0.61 0.00 - 1.50 x10'3/uL 10/08/2019 9:43 AM CDT [facility] ABS. EOSINOPHILS 0.19 0.00 - 0.40 x10'3/uL 10/08/2019 9:43 AM CDT [facility] ABS. BASOPHILS 0.08 0.00 - 0.20 x10'3/uL 10/08/2019 9:43 AM CDT [facility] ABS. IMMATURE GRANULOCYTES 0.02 0.00 - 0.03 x10'3/uL 10/08/2019 9:43 AM CDT [facility] ABS. NUCLEATED RBC'S 0.00 0.00 x10'3/uL 10/08/2019 9:43 AM CDT [facility] 10/08/2019 9:34 AM CDT us Danny Blackwell MD LABORATORY Final Result [facility] [address] [place] [address], * (ABNORMAL) BASIC METABOLIC PANEL (10/08/2019 9:34 AM CDT) SODIUM S/P/B 138 136 - 145 MMOL/L 10/08/2019 9:53 AM CDT [facility] POTASSIUM S/P/B 4.3 3.5 - 5.1 MMOL/L 10/08/2019 9:53 AM CDT [facility] CHLORIDE S/P/B 103 98 - 107 MMOL/L 10/08/2019 9:53 AM CDT [facility] CO2 27.0 21.0 - 32.0 MMOL/L 10/08/2019 9:53 AM T [facility] GLUCOSE 134(H) 70 - 99 MG/DL 10/08/2019 9:53 AM T [facility] Comment: FASTING GLUCOSE 100 TO 125 MG/DL IS CONSISTENT WITH IMPAIRED FASTING GLUCOSE. FASTING GLUCOSE >125 MG/DL IS CONSISTENT WITH DIABETES. RANDOM GLUCOSE >200 MG/DL WITH HYPERGLYCEMIC SYMPTOMS IS CONSISTENT WITH DIABETES. PER ADA GUIDELINES BUN 13 6 - 24 MG/DL 10/08/2019 9:53 AM T [facility] CREATININE S/P/B 0.91 0.70 - 1.30 MG/DL 10/08/2019 9:53 AM T [facility] CALCIUM S/P/B 9.3 8.4 - 10.5 MG/DL 10/08/2019 9:53 AM T [facility] ANION GAP 8.0 5.0 - 15.0 MMOL/L 10/08/2019 9:53 AM T [facility] OSMOLALITY (CALC) 288 MOSM/KG 020 9:53 AM T [facility] Comment:REFERENCE RANGE NOT ESTABLISHED EGFR NON-AFR. AMER. >90 >89 ML/MIN/1. 73 M2 10/08/2019 9:53 AM T [facility] EGFR AFR. AMER. >90 >89 ML/MIN/1. 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) Diabetes (CMS/[facility]) documented in this encounter Care Teams Sweatband Shaper Relationship Specialty Start Date End Date Vernon Mercedes MD [address] [place] [address] PCP - General FAMILY PRACTICE 10/27/15 12/02/21 Evaristo Allan MD [address] [place] [address] [place] [employer] Apprentice CARDIOVASCULAR DISEASE 08/19/16 Raul Santana MD [address] [place] [address] CLINICAL CARDIAC ELECTROPHYSIOLOGY 06/16/17 Danny Blackwell MD [address] [place] [address] ORTHOPAEDIC SURGERY 05/01/19 documented as of this encounter
--- OUTSIDE RECORDS SUMMARY | 2024-04-23 05:19 | XMS_ITS | Encounter Summary ---
Author Organization [facility] Address [address] [place] [address]. [place] [address] [place] [address] Care Team Providers Care Pipe Covering Molder Name Role Phone Vernon Delgado MD Primary Care Provider [phone] Evaristo Allan MD Unavailable Unavailabl Raul Duran MD Unavailable Unavailabl Danny Lopes MD Unavailable [phone] Reason for Visit * Reason Comments Consult preop evaluation [place] or to knee replacement Encounter Details Date Type Department Care Team (Latest Contact Info) Description 09/28/2019 2:00 PM CDT Office Visit [facility] [address] [place] [address] Gayle Arce, BARBARA, UNDERWRITING ASSISTANT-C [address] [facility] [address] [place] [address] Consult (preop evaluation prior to [...] 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 Blackwell at [facility] on 10/15/19. He has a history of coronary artery disease s/p [employer] PCI on 03/24/18, atrial fibrillation s/p ablation [...] low-dose aspirin without interruption due to his [employer] PCI in 2018. 4. Perioperative maintenance of beta blockade and statin therapy. 5. Maintenance of a serum hemoglobin of 8.0 or greater. From a custodial standpoint, I have recommended to Mr. Zelaya: [...] CATHETERIZATION 01/04/2018 occluded prox RCA w/well developed [id number] collaterals lvef 55-60% ??? CARDIAC CATHETERIZATION 11/13/2018 ??? FRACTURE SURGERY ??? HERNIA REPAIR ??? KNEE ARTHROPLASTY ??? LITHOTRIPSY ??? XA ABLATION 05/19/2016 ??? XA CORONARY INTERVENTION 03/24/2018 [employer] PCI-mid RCA Social History Tobacco Use ??? [...] cardiovascular examination 2. Coronary artery disease involving [place] coronary artery of [place] heart without angina pectoris 3. Paroxysmal atrial fibrillation (CMS/HCC) 4. Essential hypertension 5. Hyperlipidemia, unspecified hyperlipidemia type [place] Documentation Completed: Atrial Fibrillation Coronary Artery Disease Referring Provider: No ref. provider found PCP: VERNON DELGADO MD documented in this encounter Plan of Treatment Upcoming Encounters Date Type Department Care Team (Late st Contact Info) Description 04/25/2024 11:00 AM HOSPICE CLINICAL SUPERVISOR Appointment [facility] [address] [place] [address] Ti Bonilla MD [address] [place] [phone] 05/23/2024 3:30 PM HOSPICE CLINICAL SUPERVISOR Office Visit [facility] [address] [place] [address] Jyoti Escobar MD [address] [place] [phone] documented as of this encounter Visit Diagnoses Diagnosis Preoperative cardiovascular examination Pre-operative cardiovascular examination Coronary artery disease involving [place] coronary artery of [place] heart without angina pectoris Paroxysmal atrial fibrillation ([facility]) Atrial fibrillation Essential hypertension Unspecified essential hypertension Hyperlipidemia, unspecified hyperlipidemia type documented in this encounter Additional Health Concerns Infection Onset Date Last Indicated Resolved Time MRSA Comment:Negative MRSA 05/201903/11/2017 03/11/2017 10/03/2019 10:08 AM CDT documented as of this encounter Care Teams Pipe Covering Molder Relationship Specialty Start Date End Date Vernon Delgado MD [address] [place] [phone] PCP - General FAMILY PRACTICE 10/27/15 12/02/21 Evaristo Allan MD [address] [place] [address] [employer] Analyst CARDIOVASCULAR DISEASE 08/19/16 Raul Santana MD [address] [place] [address] CLINICAL CARDIAC ELECTROPHYSIOLOGY 06/16/17 Danny Blackwell MD [address] [place] [address] ORTHOPAEDIC SURGERY 05/01/19 documented as of this encounter
--- OUTSIDE RECORDS SUMMARY | 2024-04-23 05:19 | XMS_ITS | Encounter Summary ---
Author Organization [facility] Address [address] [place] [address]. [place], [place] [address] [place] [address] Care Team Providers Care Computer Systems Architect Name Role Phone Ton Mercedes MD Primary Care Provider [phone] Evaristo Allan MD Unavailable Unavailabl e Raul Santana MD Unavailable Unavailabl e Danny Steiner MD Unavailable [phone] Reason for Referral * (Routine) - Canceled Specialty Diagnoses / Procedures Referred By Contac t Referred To Contact Procedures OT eval and Danny Meneses MD [address] [place] [address] Phone: tel: fax: Referral ID Status Reason Start Date Expiration Date V isits Requested Visits Authorized [id number] Canceled 10/15/2019 11/13/2020 1 1 * (Routine) - Canceled Specialty Diagnoses / Procedures Referred By Contac t Referred To Contact Procedures PT evDanny Lowery MD [address] [place] [address] Phone: tel: fax: Referral ID Status Reason Start Date Expiration Date V isits Requested Visits Authorized [id number] Canceled 10/15/2019 11/13/2020 1 1 Reason for Visit * Auth/Cert Specialty Diagnoses / Procedures Referred By Contac t Referred To Contact Diagnoses T84.018A Procedures Revision RIGHT Total Knee ArthroplastyNate notifiedInpatient Referral ID Status Reason Start Date Expiration Date Visits Re quested Visits Authorized [id number] 1 1 Encounter Details Date Type Department Care Team (Latest Contact Info) Description 10/15/2019 10:18 AM CDT - 10/18/2019 12:18 PM CDT Hospital Encounter [facility] [address] [place] [address] Danny Steiner MD [address] [place] [address] Discharge Disposition: Home or Self Care (Routine [...] 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 Status post revision of total replacement of right knee 10/16/2019 ??? 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 S/P coronary artery stent placement 05/01/2019 ??? Failure of total knee replacement, initial encounter ([facility]) 04/27/2019 ??? 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 Cardiovascular stress test abnormal 03/06/2018 ??? Coronary artery disease 02/13/2018 ??? Diabetes ([facility]) 02/10/2018 ??? Mechanical complication of internal orthopedic device, implant or graft, initial encounter ([facility]) 11/01/2016 ??? Hyperlipidemia 08/14/2016 ??? Pes anserine bursitis 03/09/2016 ??? 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 Obstructive sleep apnea 10/29/2015 ??? Essential hypertension 10/24/2015 has had elevated B/P readings ??? Paroxysmal atrial fibrillation ([facility]) 10/24/2015 ??? Arthritis of knee 11/25/2014 ??? [...] HYDROcodone-acetaminophen 5-325 MG tablet Commonly known as: [place] traMADol 50 MG tablet Commonly known as: ULTRAM Where to Get Your Medications These medications were sent to [address] [phone] ?? oxyCODONE ER 10 MG 12 hr abuse-deterrent tablet ?? oxyCODONE-acetaminophen 5-325 MG tablet Signed ISAURO DEE Cosigned by Danny Steiner MD at 10/19/2019 1:06 PM CDT documented in this encounter Discharge Instructions * Attachments The following attachments cannot be sent through Care Everywhere. * Total Knee Replacement Discharge Instructions (Cymro) documented in this encounter Medications at Time [...] this encounter Progress Notes * Long Dotson, FLATWORK IRONER - 10/18/2019 12:18 PM CDT 10/18/19 0953 [...] discharge needs. Will do outpatient therapy at [facility]. * Kimberly Orozco RN - 10/18/2019 [...] and safe return home. * Dari Piña SPINNING MULE OPERATOR-BC - 10/17/2019 7:39 AM CDT Daily Progress [...] hypertension ??? Paroxysmal atrial fibrillation (CMS/HCC) ??? 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 Obstructive sleep apnea ??? Hyperlipidemia ??? Diabetes (CMS/HCC) ??? Coronary artery disease ??? 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 Cardiovascular stress test abnormal ??? Arthritis of knee ??? Derangement of medial meniscus, left ??? Encounter for follow-up examination after completed treatment for conditions other than malignant neoplasm ??? Heartburn ??? Knee pain ??? Mechanical complication of internal orthopedic device, implant or graft, initial encounter ([facility]) ??? Patella-femoral syndrome ??? Pes anserine bursitis ??? Recurrent ventral incisional hernia ??? Abdominal pain ??? Failure of total knee replacement, initial encounter ([facility]) ??? S/P coronary artery stent placement ??? Prosthetic knee implant failure ([facility]) ??? Status post revision of [...] patient. Educated patient that ambulation will help [facility]. Will continue to monitor throughout shift. * [...] CATHETERIZATION 01/04/2018 occluded prox RCA w/well developed jxqp-hi-owsqm collaterals lvef 55-60% ??? CARDIAC CATHETERIZATION 11/13/2018 ??? FRACTURE SURGERY ??? HERNIA REPAIR ??? KNEE ARTHROPLASTY Bilateral ??? LITHOTRIPSY ??? XA ABLATION 05/19/2016 ??? 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 Pt is currently demonstrating decreased ability to [...] Upon OTR departure, pt in chair with FLATWORK IRONER present, call light within reach, and all [...] discharge. He will do outpatient therapy at [facility]. His will transporthim home. He has [...] Dressing Assistance No Behavior Oriented Communication Talks;Understands Cymro;Understands speaking Socioeconomic Needs Caregiver Needed No At [...] ??? Paroxysmal atrial fibrillation ([facility]) ??? 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 Obstructive sleep apnea ??? Hyperlipidemia ??? Diabetes ([facility]) ??? Coronary artery disease ??? 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 Cardiovascular stress test abnormal ??? Arthritis of knee ??? Derangement of medial meniscus, left ??? Encounter for follow-up examination after completed treatment for conditions other than malignant neoplasm ??? Heartburn ??? Knee pain ??? Mechanical complication of internal orthopedic device, implant or graft, initial encounter ([facility]) ??? Patella-femoral syndrome ??? Pes anserine bursitis ??? Recurrent ventral incisional hernia ??? Abdominal pain ??? Failure of total knee replacement, initial encounter ([facility]) ??? S/P coronary artery stent placement ??? Prosthetic knee implant failure ([facility]) ??? Status post revision of [...] this afternoon with outpatient physical therapy at [facility] in [place]. Signed ISAURO DEE 10/16/2019 Cosigned by Danny Steiner MD at 10/16/2019 9:45 AM CDT * Mau Jackson - 10/15/2019 10:18 PM CDT Patient is resting comfortably in bed with call light within reach. Will continue to monitor throughout shift. * Darnell Cabrera, PT - 10/15/2019 5:59 PM CDT [facility] Physical Therapy Inpatient Evaluation Time In: [...] CATHETERIZATION 01/04/2018 occluded prox RCA w/well developed fhha-jt-drzre collaterals lvef 55-60% ??? CARDIAC CATHETERIZATION 11/13/2018 ??? FRACTURE SURGERY ??? HERNIA REPAIR ??? KNEE ARTHROPLASTY Bilateral ??? LITHOTRIPSY ??? XA ABLATION 05/19/2016 ??? XA CORONARY INTERVENTION 03/24/2018 SPRING FITTER HELPER PCI-mid RCA Subjective: Orientation: x 4 Pain: [...] ROM set from 0-60 without pain. Notified ADMINISTRATIVE SERVICES DIRECTOR to remove CPM at 1940. Transfers: Bed mobility/rolling: Not Performed this Date Supine to sit: Not Performed this Date Sit to stand: Not Performed this Date Pivot: Not Performed this Date Ambulation: Not attempted this date. Activity performed this session: Evaluation only this date. 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 Patient is demonstrating deficits in Strength, ROM, [...] during recuperation were discussed with the patient/family/personal circulation sales representative. Reasonable alternatives to the patient's proposed procedure/surgery including benefits, risks, and side effects related to the alternatives and the risks related to not receiving the proposed care were also discussed with the patient/family/personal circulation sales representative. Questions were answered and the patient /family/personal circulation sales representative verbalized understanding and desires [...] hypertension ??? Paroxysmal atrial fibrillation (CMS/HCC) ??? 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 Obstructive sleep apnea ??? Hyperlipidemia ??? Diabetes (CMS/HCC) ??? Coronary artery disease of [place] artery of [place] heart with stable angina pectoris (CMS/HCC) ??? 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 Cardiovascular stress test abnormal ??? Arthritis of knee ??? Derangement of medial meniscus, left ??? Encounter for follow-up examination after completed treatment for conditions other than malignant neoplasm ??? Heartburn ??? Knee pain ??? Mechanical complication of internal orthopedic device, implant or graft, initial encounter ([facility]) ??? Patella-femoral syndrome ??? Pes anserine bursitis ??? Recurrent ventral incisional hernia ??? Abdominal pain ??? Failure of total knee replacement, initial encounter ([facility]) ??? S/P coronary artery stent [...] CATHETERIZATION 01/04/2018 occluded prox RCA w/well developed cewi-to-coobr collaterals lvef 55-60% ??? FRACTURE SURGERY ??? HERNIA REPAIR ??? KNEE ARTHROPLASTY ??? LITHOTRIPSY ??? XA ABLATION 05/19/2016 ??? XA CORONARY INTERVENTION 03/24/[address] Cleary Family History Problem Relation Name [...] Not on file Occupational History ??? 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 Financial resource strain: Not [...] file Gets together: Not on file Attends mormonism service: Not on file Active member of [...] replacement, initial encounter ([facility]) T84.018A 996.47 PROSTHETIC JOINT MECHANICAL FAILURE Z96.659 V43.65 4. 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 Procedure Description: Revision right total knee arthroplasty with allograft impaction grafting medial femoral condyle using a [place] attune posterior stabilized size 5 revision femur [...] notified Inpatient (Right) Surgeon(s): Danny Steiner MD Wood Craftsman: None Anesthesia: Spinal Pre-Op Diagnosis: T84.018A Post-Op [...] st Contact Info) Description 04/25/2024 11:00 AM IRRIGATION SYSTEM INSTALLER Appointment [facility] [address] [place] [address] [place] [address] Ti Bonilla MD [address] [place] [phone] 05/23/2024 3:30 PM IRRIGATION SYSTEM INSTALLER Office Visit [facility] [address] [place] [address] Jyoti Escobar MD [address] [place] [phone] documented as of this encounter Procedures Procedure [...] - 99 MG/DL 10/18/2019 11:18 AM CDT [facility] ORDERS INTERFACE 10/18/2019 11:1 6 AM CDT Danny Steiner MD POCT ORDERABLES - DEVICE Final Result Performing Organization Address [facility] de Phone Number [facility] ORDERS INTERFACE US * (ABNORMAL) POCT glucose (10/18/2019 6:05 AM CDT) GLUCOSE POC 136(H) 70 - 99 MG/DL 10/18/2019 6:18 AM CDT [facility] ORDERS INTERFACE 10/18/2019 6:05 AM CDT Danny Steiner MD POCT ORDERABLES - DEVICE Final Result Performing Organization Address [facility] de Phone Number [facility] ORDERS INTERFACE US * (ABNORMAL) POCT glucose (10/17/2019 8:33 PM CDT) GLUCOSE POC 143(H) 70 - 99 MG/DL 10/17/2019 8:40 PM CDT [facility] ORDERS INTERFACE 10/17/2019 8:33 PM CDT Danny Steiner MD POCT ORDERABLES - DEVICE Final Result Performing Organization Address [facility] de Phone Number [facility] ORDERS INTERFACE US * (ABNORMAL) POCT glucose (10/17/2019 4:10 PM CDT) GLUCOSE POC 150(H) 70 - 99 MG/DL 10/17/2019 4:22 PM CDT [facility] ORDERS INTERFACE 10/17/2019 4:10 PM CDT us Danny Steiner MD POCT ORDERABLES - DEVICE Final Result Performing Organization Address [facility] de Phone Number [facility] ORDERS INTERFACE US * (ABNORMAL) POCT glucose (10/17/2019 11:04 AM CDT) GLUCOSE POC 189(H) 70 - 99 MG/DL 10/17/2019 11:06 AM CDT [facility] ORDERS INTERFACE 10/17/2019 11:0 4 AM CDT us Danny Steiner MD POCT ORDERABLES - DEVICE Final Result [facility] ORDERS INTERFACE US * XR KNEE [...] Matteo Buenrostro, 10/17/2019 9:35 AM Dari Piña SPINNING MULE OPERATOR-BC GENERAL IMAGING Final Resu lt * XR [...] Matteo Buenrostro, 10/17/2019 9:35 AM Dari Piña SPINNING MULE OPERATOR-BC GENERAL IMAGING Final Resu lt * (ABNORMAL) POCT glucose (10/17/2019 6:04 AM CDT) GLUCOSE POC 178(H) 70 - 99 MG/DL 10/17/2019 6:06 AM CDT [facility] ORDERS INTERFACE 10/17/2019 6:04 AM CDT Danny Steiner MD POCT ORDERABLES - DEVICE Final Result [facility] ORDERS INTERFACE US * (ABNORMAL) POCT glucose (10/16/2019 8:06 PM CDT) GLUCOSE POC 205(H) 70 - 99 MG/DL 10/16/2019 8:11 PM CDT [facility] ORDERS INTERFACE 10/16/2019 8:06 PM CDT Danny Steiner MD POCT ORDERABLES - DEVICE Final Result Performing Organization Address [facility]/State/ZIP Co de Phone Number [facility] ORDERS INTERFACE US * POCT glucose (10/16/2019 3:57 PM CDT) GLUCOSE POC 75 70 - 99 MG/DL 10/16/2019 4:00 PM CDT [facility] ORDERS INTERFACE 10/16/2019 3:57 PM CDT Danny Steiner MD POCT ORDERABLES - DEVICE Final Result Performing Organization Address [facility]/ZIP Co de Phone Number [facility] ORDERS INTERFACE US * (ABNORMAL) POCT glucose (10/16/2019 11:03 AM CDT) GLUCOSE POC 148(H) 70 - 99 MG/DL 10/16/2019 11:15 AM CDT [facility] ORDERS INTERFACE 10/16/2019 11:0 3 AM CDT us Danny Steiner MD POCT ORDERABLES - DEVICE Final Result Performing Organization Address [facility] Co de Phone Number [facility] ORDERS INTERFACE US * (ABNORMAL) POCT glucose (10/16/2019 6:16 AM CDT) GLUCOSE POC 214(H) 70 - 99 MG/DL 10/16/2019 6:21 AM CDT [facility] ORDERS INTERFACE 10/16/2019 6:16 AM CDT Danny Steiner MD POCT ORDERABLES - DEVICE Final Result Performing Organization Address [facility] Co de Phone Number [facility] ORDERS INTERFACE US * (ABNORMAL) HEMOGLOBIN AND HEMATOCRIT - in AM X 1 (10/16/2019 5:45 AM CDT) HGB 10.4(L) 13.0 - 18.0 G/DL 10/16/2019 6:10 AM CDT [facility] HCT 32.9(L) 37.0 - 52.0 % 10/16/2019 6:10 AM CDT [facility] 10/16/2019 5:45 AM CDT Danny Steiner MD LABORATORY Final Result Performing Organization Address [facility] Co de Phone Number [facility] [place] [address], * (ABNORMAL) POCT glucose (10/15/2019 9:40 PM CDT) GLUCOSE POC 198(H) 70 - 99 MG/DL 10/16/2019 5:19 AM CDT [facility] ORDERS INTERFACE 10/15/2019 9:40 PM CDT Danny Steiner MD POCT ORDERABLES - DEVICE Final Result Performing Organization Address [facility] Co de Phone Number [facility] ORDERS INTERFACE US * (ABNORMAL) POCT glucose (10/15/2019 4:46 PM CDT) GLUCOSE POC 254(H) 70 - 99 MG/DL 10/15/2019 5:05 PM CDT [facility] ORDERS INTERFACE 10/15/2019 4:46 PM CDT us Danny Steiner MD POCT ORDERABLES - DEVICE Final Result Performing Organization Address [facility]/ZIP Co de Phone Number [facility] ORDERS INTERFACE US * (ABNORMAL) POCT glucose (10/15/2019 3:54 PM CDT) GLUCOSE POC 223(H) 70 - 99 MG/DL 10/15/2019 4:06 PM CDT [facility] ORDERS INTERFACE 10/15/2019 3:54 PM CDT us Danny Steiner MD POCT ORDERABLES - DEVICE Final Result Performing Organization Address [facility] Co de Phone Number [facility] ORDERS INTERFACE US * CULTURE, TISSUE W/GRAM STAIN (10/15/2019 12:52 PM CDT) SPEC DESCRIPTION KNEE,RIGHT 10/15/2019 1:18 PM CDT [facility] SPECIAL REQUESTS NO SPECIAL REQUEST 10/15/2019 1:18 PM CDT [facility] GRAM STAIN RESULT NO ORGANISMS SEEN 10/15/2019 3:44 PM CDT [facility] CULTURE RESULT NO GROWTH 5 DAYS 10/21/2019 10:17 AM CDT [facility] Tissue specimen (specimen) STRUCTURE OF RIGHT KNEE REGION / Unknown 10/15/2019 1:16 PM CDT us Danny Steiner MD MICROBIOLOGY - GENERAL ORDERAB LES Final Result Performing Organization Address City/[facility]/ZIP Co de Phone Number [facility] [address] [place] [address], [place] [phone] [facility] [address] [place] [address], [place] [phone] * CULTURE, FUNGUS (10/15/2019 12:52 PM CDT) SPEC DESCRIPTION KNEE,RIGHT: MEDIAL FEMORAL CONDYLE 10/15/2019 1:18 PM CDT [facility] SPECIAL REQUESTS NO SPECIAL REQUEST 10/15/2019 1:18 PM CDT [facility] STAIN RESULT: NO YEAST OR FUNGAL ELEMENTS SEEN 10/17/2019 4:37 PM CDT [facility] CULTURE RESULT NO FUNGUS ISOLATED AFTER 4 WEEKS 11/13/2019 5:57 PM CDT [facility] Tissue specimen (specimen) STRUCTURE OF RIGHT KNEE REGION / Unknown 10/15/2019 1:16 PM CDT us Danny Steiner MD MICROBIOLOGY - GENERAL ORDERAB LES Final Result Performing Organization Address [facility] Co de Phone Number [facility] [address] [place] [address], [phone] [facility] [address] [place] [address], [place] [phone] * CULTURE, ANAEROBIC (10/15/2019 12:52 PM CDT) SPEC DESCRIPTION KNEE,RIGHT 10/15/2019 1:18 PM CDT [facility] SPECIAL REQUESTS NO SPECIAL REQUEST 10/15/2019 1:18 PM CDT [facility] CULTURE RESULT NO ANAEROBES ISOLATED 10/21/2019 10:16 AM CDT [facility] Tissue specimen (specimen) STRUCTURE OF RIGHT KNEE REGION / Unknown 10/15/2019 1:16 PM CDT us Danny Steiner MD MICROBIOLOGY - GENERAL ORDERAB LES Final Result Performing Organization Address [facility]/ZIP Co de Phone Number [facility] [address] [place] [address], [place] [phone] [facility] [address] [place] [address], * CULTURE, TISSUE W/GRAM STAIN (10/15/2019 12:52 PM CDT) SPEC DESCRIPTION KNEE,RIGHT 10/15/2019 1:05 PM CDT [facility] SPECIAL REQUESTS NO SPECIAL REQUEST 10/15/2019 1:05 PM CDT [facility] GRAM STAIN RESULT NO ORGANISMS SEEN 10/15/2019 3:43 PM CDT [facility] CULTURE RESULT RARE STAPHYLOCOCCU S, COAGULASE NEGATIVE 10/19/2019 9:21 AM CDT [facility] Tissue specimen (specimen) STRUCTURE OF RIGHT [...] MICROBIOLOGY - GENERAL ORDERAB LES Final Result [facility] [address] [place] [address], [place] [phone] [facility] [address] [place] [address], [place] [phone] * CULTURE, TISSUE W/GRAM STAIN (10/15/2019 12:52 PM CDT) SPEC DESCRIPTION KNEE,RIGHT 10/15/2019 1:05 PM CDT [facility] SPECIAL REQUESTS NO SPECIAL REQUEST 10/15/2019 1:05 PM CDT [facility] GRAM STAIN RESULT NO ORGANISMS SEEN 10/15/2019 3:43 PM CDT [facility] CULTURE RESULT NO GROWTH 5 DAYS 10/21/2019 10:15 AM CDT [facility] Tissue specimen (specimen) STRUCTURE OF RIGHT KNEE REGION / Unknown 10/15/2019 12:48 PM CDT Danny Steiner MD MICROBIOLOGY - GENERAL ORDERAB LES Final Result [facility] [address] [place] [address], [place] [phone] [facility] [address] [place] [address], [place] [phone] * CULTURE, TISSUE W/GRAM STAIN (10/15/2019 12:52 PM CDT) SPEC DESCRIPTION KNEE,RIGHT 10/15/2019 1:05 PM CDT [facility] SPECIAL REQUESTS NO SPECIAL REQUEST 10/15/2019 1:05 PM CDT [facility] GRAM STAIN RESULT NO ORGANISMS SEEN 10/15/2019 3:43 PM CDT [facility] CULTURE RESULT RARE ALPHA STREPTOCOCCUS 10/18/2019 9:23 AM CDT [facility] Tissue specimen (specimen) STRUCTURE OF RIGHT KNEE REGION / Unknown 10/15/2019 12:47 PM CDT Narrative Organism Antibiotic Method Susceptibility Alpha streptococcus CEFOTAXIME TOSHA (ETEST) 0.064: Sensitive Alpha streptococcus PENICILLIN TOSHA (ETEST) 0.094: Sensitive Danny Steiner MD MICROBIOLOGY - GENERAL ORDERAB LES Final Result Performing Organization Address City/[facility]/ZIP Co de Phone Number [facility] [address] [place] [address], [place] [phone] [facility] [address] [place], [place] [address] [place] [address], [place] [phone] * CULTURE, FUNGUS (10/15/2019 12:52 PM CDT) SPEC DESCRIPTION KNEE,RIGHT: MEDIAL 10/15/2019 1:05 PM CDT [facility] SPECIAL REQUESTS NO SPECIAL REQUEST 10/15/2019 1:05 PM CDT [facility] STAIN RESULT: NO YEAST OR FUNGAL ELEMENTS SEEN 10/17/2019 4:37 PM CDT [facility] CULTURE RESULT NO FUNGUS ISOLATED AFTER 4 WEEKS 11/13/2019 5:57 PM CDT [facility] Tissue specimen (specimen) STRUCTURE OF RIGHT KNEE REGION / Unknown 10/15/2019 12:52 PM CDT us Danny Steiner MD MICROBIOLOGY - GENERAL ORDERAB LES Final Result Performing Organization Address [facility] Co de Phone Number [facility] [address] [place] [address], [place] [phone] [facility] [address] [place] [address], [place] [phone] * CULTURE, FUNGUS (10/15/2019 12:52 PM CDT) SPEC DESCRIPTION KNEE,RIGHT: INFERIOR 10/15/2019 1:05 PM CDT [facility] SPECIAL REQUESTS NO SPECIAL REQUEST 10/15/2019 1:05 PM CDT [facility] STAIN RESULT: NO YEAST OR FUNGAL ELEMENTS SEEN 10/17/2019 4:36 PM CDT [facility] CULTURE RESULT NO FUNGUS ISOLATED AFTER 4 WEEKS 11/13/2019 5:57 PM CDT [facility] Tissue specimen (specimen) STRUCTURE OF RIGHT KNEE REGION / Unknown 10/15/2019 12:48 PM CDT us Danny Steiner MD MICROBIOLOGY - GENERAL ORDERAB LES Final Result Performing Organization Address [facility]/ZIP Co de Phone Number [facility] [address] [place] [address], [place] [phone] [facility] [address] [place] [address], [place] [phone] * CULTURE, FUNGUS (10/15/2019 12:52 PM CDT) SPEC DESCRIPTION KNEE,RIGHT: SUPERIOR 10/15/2019 1:05 PM CDT [facility] SPECIAL REQUESTS NO SPECIAL REQUEST 10/15/2019 1:05 PM CDT [facility] STAIN RESULT: NO YEAST OR FUNGAL ELEMENTS SEEN 10/17/2019 4:36 PM CDT [facility] CULTURE RESULT NO FUNGUS ISOLATED AFTER 4 WEEKS 11/13/2019 5:57 PM CDT [facility] Tissue specimen (specimen) STRUCTURE OF RIGHT KNEE REGION / Unknown 10/15/2019 12:47 PM CDT us Danny Steiner MD MICROBIOLOGY - GENERAL ORDERAB LES Final Result Performing Organization Address [facility] Co de Phone Number [facility] [address] [place] [address], [place] [phone] [facility] [address] [place] [address], [place] [phone] * CULTURE, FUNGUS (10/15/2019 12:52 PM CDT) SPEC DESCRIPTION KNEE,RIGHT: FLUID 10/15/2019 1:05 PM CDT [facility] SPECIAL REQUESTS NO SPECIAL REQUEST 10/15/2019 1:05 PM CDT [facility] STAIN RESULT: NO YEAST OR FUNGAL ELEMENTS SEEN 10/17/2019 4:36 PM CDT [facility] CULTURE RESULT NO FUNGUS ISOLATED AFTER 4 WEEKS 11/13/2019 5:57 PM CDT [facility] Body fluid specimen (specimen) STRUCTURE OF RIGHT KNEE REGION / Unknown 10/15/2019 12:41 PM CDT us Danny Steiner MD MICROBIOLOGY - GENERAL ORDERAB LES Final Result Performing Organization Address [facility] Co de Phone Number [facility] [address] [place] [address], [place] [phone] [facility] [address] [place] [address], * CULTURE, BODY FLUID W/ GRAM STAIN (10/15/2019 12:52 PM CDT) SPEC DESCRIPTION KNEE,RIGHT 10/15/2019 1:05 PM CDT [facility] SPECIAL REQUESTS NO SPECIAL REQUEST 10/15/2019 1:05 PM CDT [facility] GRAM STAIN RESULT NO ORGANISMS SEEN 10/15/2019 3:42 PM CDT [facility] CULTURE RESULT NO GROWTH 5 DAYS 10/21/2019 10:13 AM CDT [facility] Body fluid specimen (specimen) STRUCTURE OF RIGHT KNEE REGION / Unknown 10/15/2019 12:41 PM CDT Danny Steiner MD MICROBIOLOGY - GENERAL ORDERAB LES Final Result [facility] [address] [place] [address], [place] [phone] [facility] [address] [place] [address], * CULTURE, ANAEROBIC (10/15/2019 12:52 PM CDT) SPEC DESCRIPTION KNEE,RIGHT 10/15/2019 1:05 PM CDT [facility] SPECIAL REQUESTS NO SPECIAL REQUEST 10/15/2019 1:05 PM CDT [facility] CULTURE RESULT NO ANAEROBES ISOLATED 10/21/2019 10:16 AM CDT [facility] Tissue specimen (specimen) STRUCTURE OF RIGHT KNEE REGION / Unknown 10/15/2019 12:52 PM CDT us Danny Steiner MD MICROBIOLOGY - GENERAL ORDERAB LES Final Result [facility] [address] [place] [address], [place] [phone] [facility] [address] [place] [address], [place] [phone] * CULTURE, ANAEROBIC (10/15/2019 12:52 PM CDT) SPEC DESCRIPTION KNEE,RIGHT 10/15/2019 1:05 PM CDT [facility] SPECIAL REQUESTS NO SPECIAL REQUEST 10/15/2019 1:05 PM CDT [facility] CULTURE RESULT NO ANAEROBES ISOLATED 10/21/2019 10:15 AM CDT [facility] Tissue specimen (specimen) STRUCTURE OF RIGHT KNEE REGION / Unknown 10/15/2019 12:48 PM CDT us Danny Steiner MD MICROBIOLOGY - GENERAL ORDERAB LES Final Result Performing Organization Address City/[facility]/ZIP Co de Phone Number [facility] [address] [place] [address], [place] [phone] [facility] [address] [place] [address], [place] [phone] * CULTURE, ANAEROBIC (10/15/2019 12:52 PM CDT) SPEC DESCRIPTION KNEE,RIGHT 10/15/2019 1:05 PM CDT [facility] SPECIAL REQUESTS NO SPECIAL REQUEST 10/15/2019 1:05 PM CDT [facility] CULTURE RESULT NO ANAEROBES ISOLATED 10/21/2019 10:14 AM CDT [facility] Tissue specimen (specimen) STRUCTURE OF RIGHT KNEE REGION / Unknown 10/15/2019 12:47 PM CDT us Danny Steiner MD MICROBIOLOGY - GENERAL ORDERAB LES Final Result [facility] [address] [place] [address], [place] [phone] [facility] [address] [place] [address], [place] [phone] * CULTURE, ANAEROBIC (10/15/2019 12:52 PM CDT) SPEC DESCRIPTION KNEE,RIGHT 10/15/2019 1:05 PM CDT [facility] SPECIAL REQUESTS NO SPECIAL REQUEST 10/15/2019 1:05 PM CDT [facility] CULTURE RESULT NO ANAEROBES ISOLATED 10/20/2019 6:51 AM CDT [facility] Body fluid specimen (specimen) STRUCTURE OF RIGHT KNEE REGION / Unknown 10/15/2019 12:41 PM CDT us Danny Steiner MD MICROBIOLOGY - GENERAL ORDERAB LES Final Result Performing Organization Address [facility] Co de Phone Number [facility] [address] [place] [address], [phone] [facility] [place] [address], [place] [phone] * CULTURE, TISSUE W/GRAM STAIN (10/15/2019 12:44 PM CDT) SPEC DESCRIPTION KNEE,RIGHT 10/15/2019 2:06 PM CDT [facility] SPECIAL REQUESTS NO SPECIAL REQUEST 10/15/2019 2:06 PM CDT [facility] GRAM STAIN RESULT NO ORGANISMS SEEN 10/15/2019 3:43 PM CDT [facility] CULTURE RESULT NO GROWTH 5 DAYS 10/21/2019 10:14 AM CDT [facility] Tissue specimen (specimen) STRUCTURE OF RIGHT KNEE REGION / Unknown 10/15/2019 12:44 PM CDT us Danny Steiner MD MICROBIOLOGY - GENERAL ORDERAB LES Final Result Performing Organization Address [facility] Co de Phone Number [facility] [address] [place] [address], [phone] [facility] [address] [place] [address], [place] [phone] * CULTURE, FUNGUS (10/15/2019 12:44 PM CDT) SPEC DESCRIPTION KNEE,RIGHT: LATERAL 10/15/2019 2:06 PM CDT [facility] SPECIAL REQUESTS NO SPECIAL REQUEST 10/15/2019 2:06 PM CDT [facility] STAIN RESULT: NO YEAST OR FUNGAL ELEMENTS SEEN 10/17/2019 4:36 PM CDT [facility] CULTURE RESULT NO FUNGUS ISOLATED AFTER 4 WEEKS 11/13/2019 5:57 PM CDT [facility] Tissue specimen (specimen) STRUCTURE OF RIGHT KNEE REGION / Unknown 10/15/2019 12:44 PM CDT Danny Steiner MD MICROBIOLOGY - GENERAL ORDERAB LES Final Result Performing Organization Address City/[facility]/ZIP Co de Phone Number [facility] [address] [place] [address], [place] [phone] [facility] [address] [place], [place] [address] [address], [place] [phone] * CULTURE, ANAEROBIC (10/15/2019 12:44 PM CDT) SPEC DESCRIPTION KNEE,RIGHT 10/15/2019 2:06 PM CDT [facility] SPECIAL REQUESTS NO SPECIAL REQUEST 10/15/2019 2:06 PM CDT [facility] CULTURE RESULT NO ANAEROBES ISOLATED 10/21/2019 10:14 AM CDT [facility] Tissue specimen (specimen) STRUCTURE OF RIGHT KNEE REGION / Unknown 10/15/2019 12:44 PM CDT us Danny Steiner MD MICROBIOLOGY - GENERAL ORDERAB LES Final Result Performing Organization Address [facility]/ZIP Co de Phone Number [facility] [address] [place] [address], [place] [phone] [facility] [place] [address], documented in this encounter Visit Diagnoses Diagnosis [...] Ashley Delgado RN) 075 (Given - Provider: Ahsley Delgado RN) 08 (Given - Provider: Kimberly [...] Provider: Ashley Delgado RN)203 (Given - Provider: Meme Sanders RN) 08 [...] Tue10/17/19 at 1830, Until Tue10/18/19 at 1421 8114 (Given - Provider: Meme Sanders RN) diphenhydrAMINE [...] Post-Op documented in this encounter Care Teams Computer Systems Architect Relationship Specialty Start Date End Date Ton Mercedes MD [address] [facility] [place] [address] PCP - General FAMILY PRACTICE 10/27/15 12/02/21 Evaristo Allan MD [address] [place] [address] [place] Battery Test Engineer CARDIOVASCULAR DISEASE 08/19/16 Raul Santana MD [address] [place] [address] CLINICAL CARDIAC ELECTROPHYSIOLOGY 06/16/17 Danny Steiner MD [address] [place] [address] ORTHOPAEDIC SURGERY 05/01/19 documented as of this encounter
--- OUTSIDE RECORDS SUMMARY | 2024-04-23 05:19 | XMS_ITS | Encounter Summary ---
Author Organization [facility] Address [address] [place] [address]. 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 Not on [...] st Contact Info) Description 04/25/2024 11:00 AM AMORTIZATION SCHEDULE CLERK Appointment [facility] [address] [place] [address] Ti Bonilla MD [address] [place] [phone] 05/23/2024 3:30 PM AMORTIZATION SCHEDULE CLERK Office Visit [facility] [address] [place] [address] Jyoti Escobar MD [address] [place] [phone] documented as of this encounter Visit Diagnoses Not on filedocumented in this encounter Care Teams Industrial Tractor Driver Relationship Specialty Start Date End Date Vernon Mercedes MD [address] [place] [phone] PCP - General FAMILY PRACTICE 10/27/15 12/02/21 [place] [address] [place] Candlemaker CARDIOVASCULAR DISEASE 08/19/16 Raul Santana MD [address] [facility] [place] [address] CLINICAL CARDIAC ELECTROPHYSIOLOGY 06/16/17 aDnny Blackwell MD [address] [place], [place] [phone] ORTHOPAEDIC SURGERY 05/01/19 documented as of this encounter
--- OUTSIDE RECORDS SUMMARY | 2024-04-23 05:19 | XMS_ITS | Encounter Summary ---
Author Organization [facility] Address [address] [place] [address]. [place], [place] [address] [place] [address] Care Team Providers Care Melt Supervisor Name Role Phone Vernon Mercedes MD Primary Care Provider [phone] Evaristo Allan MD Unavailable Unavailabl Raul Duran MD Unavailable Unavailabl Danny Lopes MD Unavailable Reason for Visit * Physical Medicine (Routine) - Closed Specialty Diagnoses / Procedures Referred By Charito ledbetter Referred To Contact PHYSICAL THERAPY Diagnoses Prosthetic joint implant failure, subsequent encounter Aftercare following right knee joint replacement surgery Dari Piña FNP-BC [address] [place] [address] Phone: tel: fax: Referral ID Status Reason Start Date Expiration Date V isits Requested Visits Authorized [id number] Closed Physical Therapy 10/16/2019 11/14/2020 60 60 Encounter Details Date Type Department Care Team (Late st Contact Info) Description 11/02/2019 12:22 PM CDT - 11/02/2019 11:59 PM CDT Hospital Encounter [facility] [address] [place] [address] Dari Piña FNP-BC [address] [place] [address] Keiry Naranjo, IT COORDINATOR [address] [place] [address] Discharge Disposition: Home or Self Care (Routine [...] 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) Take 1 tablet (10 mg total) [...] this encounter Progress Notes * Keiry Naranjo, IT COORDINATOR - 11/02/2019 12:35 PM CDT [facility] PHYSICAL [...] CATHETERIZATION 01/04/2018 occluded prox RCA w/well developed [id number]-okpui collaterals lvef 55-60% ??? CARDIAC CATHETERIZATION 11/13/2018 ??? FRACTURE SURGERY ??? 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 HERNIA REPAIR ??? KNEE ARTHROPLASTY Bilateral ??? LITHOTRIPSY ??? XA ABLATION 05/19/2016 ??? XA CORONARY INTERVENTION 03/24/2018 MACHINE SETTER AUTOMATIC PCI-mid RCA Subjective: Diagnosis: R TKA Referring [...] 74 degrees Treatment Performed: Therapeutic Exercise - 39782 Minutes Performed: 25 minutes Intervention: - PROM flexion/extension - heelslide with strap 3' hold x 10 HELD- DKTC on peanut ball 2x10 - quad set 10 sec x10 - SAQ 2 x 10 (INCRSD REPS) - supine hip abduction x20 Manual Therapy - 11527 Minutes Performed: 10 minutes Intervention: - IASTM to R quad Neuromuscular Reeducation - 52934 Minutes Performed: 10 minutes Intervention: - Panamanian to R quad with quad sets and SAQ Therapeutic Activities - 34402 Minutes Performed: Modalities Minutes Performed: 15' Intervention: [...] st Contact Info) Description 04/25/2024 11:00 AM BOAT BUILDER AND REPAIRER Appointment [facility] [place] [address] Ti Bonilla MD [address] [place] [phone] 05/23/2024 3:30 PM BOAT BUILDER AND REPAIRER Office Visit [facility] [address] [place] [address] Jyoti Escobar MD [address] [place] [address] documented as of this encounter Visit Diagnoses Diagnosis Status post revision of total replacement of right knee documented in this encounter Care Teams Melt Supervisor Relationship Specialty Start Date End Date Vernon Merceeds MD [address] [place] [phone] PCP - General FAMILY PRACTICE 10/27/15 12/02/21 Evaristo Allan MD [address] [place] [phone] [place] Mortgage Protection Specialist CARDIOVASCULAR DISEASE 08/19/16 Raul Santana MD [address] [place] [address] CLINICAL CARDIAC ELECTROPHYSIOLOGY 06/16/17 Danny Blackwell MD [address] [place] [address] ORTHOPAEDIC SURGERY 05/01/19 documented as of this encounter
--- OUTSIDE RECORDS SUMMARY | 2024-04-23 05:19 | XMS_ITS | Encounter Summary ---
Author Organization [facility] Address [address] [place] [address]. 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 [address] [facility] [place] [address] Ti Bonilla MD [address] [place] [phone] 05/23/2024 3:30 PM BISQUE BRUSHER [facility] [address] [place] [address] Jyoti Escobar MD [address] [place] [address] documented as of this encounter Visit Diagnoses Not on filedocumented in this encounter Additional Health Concerns Infection Onset Date Last Indicated Resolved Time MRSA Comment:Negative MRSA 05/201903/11/2017 03/11/2017 10/03/2019 10:08 AM CDT documented as of this encounter Care Teams Hitcher Relationship Specialty Start Date End Date Vernon Mercedes MD [address] [place] [address] PCP - General FAMILY PRACTICE 10/27/15 12/02/21 Evaristo Allan MD [address] [place] [address] [place] Measurement And Sensing Technician CARDIOVASCULAR DISEASE 08/19/16 Raul Santana MD [address] [place] [address] CLINICAL CARDIAC ELECTROPHYSIOLOGY 06/16/17 Danny Blackwell MD [address] [place] [address] ORTHOPAEDIC SURGERY 05/01/19 documented as of this encounter
--- OUTSIDE RECORDS SUMMARY | 2024-04-23 05:19 | XMS_ITS | Encounter Summary ---
Author Organization [facility] Address [address] [place] [address]. [place], [place] [address] [place] [address] Care Team Providers Care Agents' Records Clerk Name Role Phone Vernon Mercedes MD Primary Care Provider [phone] Evaristo Allan MD Unavailable Unavailabl e Raul Santana MD Unavailable Unavailabl e Danny Blackwell MD Unavailable [phone] Reason for Visit * Auth/Cert Specialty Diagnoses / Procedures Referred By Contac t Referred To Contact Diagnoses [id number] Procedures Revision RIGHT Total Knee ArthroplastyNate notifiedInpatient Referral ID Status Reason Start Date Expiration Date Visits Re quested Visits Authorized [id number] 1 1 Encounter Details Date Type Department Care Team (Late st Contact Info) Description 10/15/2019 11:55 AM CDT Anesthesia Event [facility] [address] [facility] [place] [address] Elie Ulrich MD [facility] [place] [address] Anesthesia Record Procedure Summary Procedure Name Responsible Anesthesiologist Anesthesia Start Time Anesthesia Stop Time Revision RIGHT Total Knee Arthroplasty (Right: Knee) Elie Ulrich MD 10/15/19 1155 10/15/19 1543 Events Date Time Event Comment 10/15/2019 1100 1108 AN ESTATE PLANNING DIRECTOR Prepped 1155 An Start Patient ID and [...] 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 4. Perioperative maintenance of beta blockade and statin therapy. 5. Maintenance of a serum hemoglobin of 8.0 or greater. ?? From a jail standpoint, I have recommended to Mr. Zelaya: [...] st Contact Info) Description 04/25/2024 11:00 AM CHUTE MAN Appointment [facility] [address] [place] [address] [place] [address] Ti Bonilla MD [address] [place] [phone] 05/23/2024 3:30 PM CHUTE MAN Office Visit [facility] [address] [facility] [place] [address] Jyoti Escobar MD [address] [place] [phone] documented as of this encounter Procedures Procedure Name Priority Date/Time Associated Diagnosis Comments AN SPINAL Routine 10/15/2019 12:18 PM CDT MO AN PERIPHERAL BLOCK SINGLE-SHOT Routine 10/15/2019 11:34 [...] tolerated procedure well. us Matteo Lakhani CRNA [place] ANESTHESIA Final Res ult * MO AN PERIPHERAL BLOCK SINGLE-SHOT (10/15/2019 11:34 AM [...] heme no parasthesia us Matteo Lakhani CRNA [place] ANESTHESIA Final Res ult documented in this [...] 10/15/2019 12:06 PM CDT 200 mcg phenylephrine (SELENA-SYNEPHRINE) injection Intravenous, Continuous PRN, Starting on Tue10/15/19 [...] mg documented in this encounter Care Teams Agents' Records Clerk Relationship Specialty Start Date End Date Vernon Mercedes MD [address] [place] [address] [place] [address] PCP - General FAMILY PRACTICE 10/27/15 12/02/21 Evaristo Allan MD [address] [place] [address] [place] Consumer Sales Representative CARDIOVASCULAR DISEASE 08/19/16 Raul Santana MD [address] [place] [address] CLINICAL CARDIAC ELECTROPHYSIOLOGY 06/16/17 Danny Blackewll MD [address] [place] [address] ORTHOPAEDIC SURGERY 05/01/19 documented as of this encounter
--- OUTSIDE RECORDS SUMMARY | 2024-04-23 05:19 | XMS_ITS | Encounter Summary ---
Author Organization [facility] Address [address] [place] [address]. [place] [address] [place] [address] Care Team Providers Care Airframe Technical Officer Name Role Phone Vernon Mercedes MD Primary Care Provider [phone] Evaristo Allan MD Unavailable UnavailRaul Suresh MD Unavailable Unavailabl Danny Lopes MD Unavailable [phone] Reason for Visit * Reason Onset Date Comments Surgical Clearance 09/21/2019 Encounter Details Date Type Department Care Team (Late st Contact Info) Description 09/21/2019 Telephone [employer] CARDIOVASCULAR [employer] [facility] [address] [place] [address] Evaristo Allan MD Surgical Clearance [...] 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 Please call her back at [phone] documented in this encounter Plan of Treatment Upcoming Encounters Date Type Department Care Team (Late st Contact Info) Description 04/25/2024 11:00 AM CUSTOM SHOE DESIGNER AND MAKER Appointment [facility] [place] [address] Ti Bonilla MD [address] [place] [phone] 05/23/2024 3:30 PM CUSTOM SHOE DESIGNER AND MAKER Office Visit [facility] [address] [place] [address] Jyoti Escobar MD [address] [place] [address] documented as of this encounter Visit Diagnoses Not on filedocumented in this encounter Additional Health Concerns Infection Onset Date Last Indicated Resolved Time MRSA Comment:Negative MRSA 05/201903/11/2017 03/11/2017 10/03/2019 10:08 AM CDT documented as of this encounter Care Teams Airframe Technical Officer Relationship Specialty Start Date End Date Vernon Mercedes MD [address] [place] [address] PCP - General FAMILY PRACTICE 10/27/15 12/02/21 Evaristo Allan MD [address] [place] [address] [place] Accounts Receivable Clerk CARDIOVASCULAR DISEASE 08/19/16 Raul Santana MD [address] [place] [address] CLINICAL CARDIAC ELECTROPHYSIOLOGY 06/16/17 Danny Blackwell MD [address] [place] [address] ORTHOPAEDIC SURGERY 05/01/19 documented as of this encounter
--- OUTSIDE RECORDS SUMMARY | 2024-04-23 05:19 | XMS_ITS | Encounter Summary ---
Author Organization [facility] Address [address] [place] [address]. [place], [place] [address] [place] [address] Care Team Providers Care Fire Captain Name Role Phone Vernon Mercedes MD Primary Care Provider vEaristo Allan MD Unavailable UnavailRaul Suresh MD Unavailable Unavailabl Danny Lopes MD Unavailable [phone] Encounter Details Date Type Department Care Team (Latest Contact Info) Description 10/12/2019 6:34 AM CDT - 10/12/2019 11:59 PM CDT Hospital Encounter [facility] [address] [facility] [place] [address] Danny Blackwell MD [address] [place] [address] Discharge Disposition: Home or Self [...] 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 [...] Contact Info) Description 04/25/2024 11:00 AM SYSTEMS DEVELOPMENT MANAGER Appointment [facility] [address] [facility] [place] [address] Ti Bonilla MD [address] [place] [phone] 05/23/2024 3:30 PM SYSTEMS DEVELOPMENT MANAGER Office Visit [facility] [address] [place] [address] Jyoti Escobar MD [address] [place] [phone] documented as of this encounter Procedures Procedure Name Priority Date/Time Associated Diagnosis Comments CORONAVIRUS (COVID 19) Routine 10/12/2019 6:42 AM CDT Pre-operative laboratory examination documented in this encounter Results * CORONAVIRUS (COVID 19) [facility] (10/12/2019 6:42 AM CDT) CORONAVIRUS SARS COV 2 PCR (RESP) NOT DETECTED NOT DETECTED 10/13/2019 9:43 PM CDT [facility] Comment: A Not Detected (negative) test result [...] providers and patients using the following websites: https://www.[employer]/home/Covid-19/HCP/NAAT/fact-sheet2 https://www.[employer]/home/Covid-19/Patients/NAAT/ fact-sheet2 This test has been authorized by the FDA under an Emergency Use Authorization (EUA) for use by authorized laboratories. Due to the current public health emergency, [facility] is receiving a high volume of samples [...] about COVID-19 can be found at the [employer] website: www.[employer]/Covid19. Test performed at [facility] [address] [place], [place] ??[address] Director: VIRGILIO MONSON DO,MPH NASOPHARYNGEAL SWAB / Unknown 10/12/2019 6:42 AM CDT us Danny Blackwell MD MICROBIOLOGY - GENERAL ORDERAB LES Final Result [facility] [address] [place] [address], documented in this encounter Visit Diagnoses Diagnosis Pre-operative laboratory examination Pre-procedural laboratory examination documented in this encounter Additional Health Concerns Infection Onset Date Last Indicated Resolved Time COVID-19 Rule Out 10/12/2019 10/12/2019 10/13/2019 9:43 PM CDT documented as of this encounter Care Teams Fire Captain Relationship Specialty Start Date End Date Vernon Mercedes MD [address] [place] [phone] PCP - General FAMILY PRACTICE 10/27/15 12/02/21 Evaristo Allan MD [address] [place] [address] [place] Pool Nurse CARDIOVASCULAR DISEASE 08/19/16 Raul Santana MD [address] [place] [address] CLINICAL CARDIAC ELECTROPHYSIOLOGY 06/16/17 Danny Blackwell MD [address] [place], [place] [phone] ORTHOPAEDIC SURGERY 05/01/19 documented as of this encounter
--- OUTSIDE RECORDS SUMMARY | 2024-04-23 05:19 | XMS_ITS | Encounter Summary ---
Author Organization [facility] Address [address] [place] [address]. [place], [place] [address] [place] [address] Care Team Providers Care Car Manager Name Role Phone Vernon Mercedes MD Primary Care Provider [phone] Evaristo Allan MD Unavailable Unavailabl e Raul Santana MD Unavailable Unavailabl e Danny Blackwell MD Unavailable [phone] Reason for Visit * Reason Comments Jnt Pain/Knee * Physical Medicine (Routine) - Closed Specialty Diagnoses / Procedures Referred By Charito ledbetter Referred To Contact PHYSICAL THERAPY Diagnoses Prosthetic joint implant failure, subsequent encounter Aftercare following right knee joint replacement surgery Dari Piña FNP-[place] [address] [place] [address] Phone: tel: fax: Referral ID Status Reason Start Date Expiration Date V isits Requested Visits Authorized [id number] Closed Physical Therapy 10/16/2019 11/14/2020 60 60 Encounter Details Date Type Department Care Team (Late st Contact Info) Description 11/01/2019 1:40 PM CDT - 11/01/2019 11:59 PM CDT Hospital Encounter [facility] [address] [place] [address] Dari Piña FNP-[place] [address] [place] [id number] Austen Gaytan, DPT Jnt Pain/Knee Discharge Disposition: [...] 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 CARDIAC CATHETERIZATION 11/13/2018 ??? FRACTURE SURGERY ??? 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 HERNIA REPAIR ??? KNEE ARTHROPLASTY Bilateral ??? LITHOTRIPSY ??? XA ABLATION 05/19/2016 ??? XA CORONARY INTERVENTION 03/24/2018 MOTORBOAT OPERATOR PCI-mid RCA Subjective: Diagnosis: R TKA [...] WBAT Objective: Treatment Performed: Therapeutic Exercise - 41138 Minutes Performed: 23 minutes Intervention: - PROM flexion/extension - heelslide with strap 3' hold x 10 Held- DKTC on peanut ball 2x10 - quad set 10 sec x10 - SAQ assisted x 10 (inc reps) - supine hip abduction x20 Manual Therapy - 04902 Minutes Performed: 10 minutes Intervention: - IASTM to R quad Neuromuscular Reeducation - 52516 Minutes Performed: 10 minutes Intervention: - Nigerian to R quad with quad sets and SAQ Therapeutic Activities - 76617 Minutes Performed: Modalities Minutes Performed: 15 Intervention: - gameready to R knee x 15 min Total Treatment Time: 58 minutes Education Performed: Educated to continue current HEP. ASSESSMENT: Note: Pt performs SAQ through 80% available ROM today without assistance. Continued with Nigerian Stim for Quad recruitment and strengthening. Increased stiffness in R quads noted during STM. PLAN: Plan for next visit: Continue range of motion and strengthening. documented in this encounter Plan of Treatment Upcoming Encounters Date Type Department Care Team (Late st Contact Info) Description 04/25/2024 11:00 AM VETERINARY EPIDEMIOLOGIST Appointment [facility] [place] [address] Ti Bonilla MD [address] [place] [phone] 05/23/2024 3:30 PM VETERINARY EPIDEMIOLOGIST Office Visit [facility] [address] [place] [address] Jyoti Escobar MD [address] [place] [address] [phone] documented as of this encounter Visit Diagnoses Diagnosis Status post revision of total replacement of right knee documented in this encounter Care Teams Car Manager Relationship Specialty Start Date End Date Vernon Mercedes MD [address] [place] [phone] PCP - General FAMILY PRACTICE 10/27/15 12/02/21 Evaristo Allan MD [address] [place] [address] [place] Plate Filler CARDIOVASCULAR DISEASE 08/19/16 Raul Santana MD [address] [place] [address] CLINICAL CARDIAC ELECTROPHYSIOLOGY 06/16/17 Danny Blackwell MD [address] [facility] [place], [place] [phone] ORTHOPAEDIC SURGERY 05/01/19 documented as of this encounter
--- OUTSIDE RECORDS SUMMARY | 2024-04-23 05:19 | XMS_ITS | Encounter Summary ---
Author Organization [facility] Address [address] [place] [address]. [place], [place] [address] [place] [address] Care Team Providers Care Charger Operator Helper Name Role Phone Vernon Mercedes MD Primary Care Provider [phone] Evaristo Allan MD Unavailable UnavailRaul Suresh MD Unavailable Unavailabl Danny Lopes MD Unavailable [phone] Encounter Details Date Type Department Care Team (Latest Contact Info) Description 10/26/2019 9:19 AM CDT - 10/26/2019 11:59 PM CDT Hospital Encounter [facility] [address] [place] [address] Danny Blackwell MD [address] [place] [address] Discharge Disposition: Home or Self [...] 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 [address] [place] [address] [place] [address] Ti Bonilla MD [address] [place] [phone] 05/23/2024 3:30 PM POCKET GRINDER OPERATOR Office Visit [facility] [address] [place] [address] Jyoti Escobar MD [address] [place] [address] [phone] documented as of this encounter Procedures Procedure [...] Failure of total knee replacement, initial encounter ([facility]) Bilateral hip pain Pain in joint, pelvic region and thigh documented in this encounter Care Teams Charger Operator Helper Relationship Specialty Start Date End Date [place] [place] [address] PCP - General FAMILY PRACTICE 10/27/15 12/02/21 Evar[place] [address] [place] Physical Chemist CARDIOVASCULAR DISEASE 08/19/16 Raul [place] [address] CLINICAL CARDIAC ELECTROPHYSIOLOGY 06/16/17 Danny Blackwell MD [address] [place], [place] [phone] ORTHOPAEDIC SURGERY 05/01/19 documented as of this encounter
--- OUTSIDE RECORDS SUMMARY | 2024-04-23 05:19 | XMS_ITS | Encounter Summary ---
Author Organization [facility] Address [address] [place] [address]. [place], [place] [address] [place], [place] [phone] Care Team Providers Care Purchasing Director Name Role Phone Vernon Mercedes MD Primary Care Provider [phone] Evaristo Allan MD Unavailable UnavailRaul Suresh MD Unavailable Unavailabl e Danny Blackwell MD Unavailable [phone] Reason for Visit * Reason Onset Date Comments Surgical Clearance 09/21/2019 Dr. Allan Encounter Details Date Type Department Care Team (Latest Contact Info) Description 09/21/2019 Mis Documentation [facility] [address] [address] Danny Blackwell MD [address] [place] [address] Surgical Clearance (Dr. Allan) Social History [...] call back concerning above. -Brent Allan phone: [phone] documented in this encounter Plan of Treatment Upcoming Encounters Date Type Department Care Team (Late st Contact Info) Description 04/25/2024 11:00 AM AMUSEMENT RIDE OPERATOR Appointment [facility] [address] [place] [address] Ti Bonilla MD [address] [place] [phone] 05/23/2024 3:30 PM AMUSEMENT RIDE OPERATOR Office Visit [facility] [address] [place] [phone] Jyoti Escobar MD [address] [place] [phone] documented as of this encounter Visit Diagnoses Not on filedocumented in this encounter Additional Health Concerns Infection Onset Date Last Indicated Resolved Time MRSA Comment:Negative MRSA 05/201903/11/2017 03/11/2017 10/03/2019 10:08 AM CDT documented as of this encounter Care Teams Purchasing Director Relationship Specialty Start Date End Date Vernon Mercedes MD [address] [place] [phone] PCP - General FAMILY PRACTICE 10/27/15 12/02/21 Evaristo Allan MD [address] [place] [phone] [place] Returned Goods Repairer CARDIOVASCULAR DISEASE 08/19/16 Raul Santana MD [address] [place] [phone] CLINICAL CARDIAC ELECTROPHYSIOLOGY 06/16/17 Danny Blackwell MD [address] [place] [address] ORTHOPAEDIC SURGERY 05/01/19 documented as of this encounter
--- OUTSIDE RECORDS SUMMARY | 2024-04-23 05:20 | XMS_ITS | Encounter Summary ---
Author Organization [facility] Address [address] [place] [address]. [place], [place] [address] [place] [address] Care Team Providers Care Prospect Manager Name Role Phone Vernon Mercedes MD Primary Care Provider [phone] Evaristo Allan MD Unavailable UnavailRaul Suresh MD Unavailable Unavailabl e Myah Handley NP Unavailable Unavailable Reason for Visit * Reason Onset Date Comments Medication Problem 11/02/2018 Encounter Details Date Type Department Care Team (Late st Contact Info) Description 11/02/2018 Telephone [employer] [facility] [facility] [address] [place] [address] Evaristo Allan MD Medication Problem [...] cath films from Dec to see if WORKFLOW DEVELOPER a possibility. Spoke with pt. He states he was in AF last night for 5 min, feeling worse, increasing cp episodes. Discussed plans for WORKFLOW DEVELOPER. Instructed to go to ER if CP worsens or is not relieved. He verbalizes understanding * Mavis Greenfield Jamel - 11/02/2018 1:04 PM CDT Pt called stating Dr. Allan told him to try ibuprofen for his chest pain and pt states it made it worse. Pt can be reached at [phone]. documented in this encounter Plan of Treatment Upcoming Encounters Date Type Department Care Team (Late st Contact Info) Description 04/25/2024 11:00 AM UNIT SECY Appointment [facility] [address] [place] [address] Ti Bonilla MD [address] [place] [phone] 05/23/2024 3:30 PM UNIT SECY Office Visit [facility] [address] [place] [address] Jyoti Escobar MD [address] [place] [address] documented as of this encounter Visit Diagnoses Not on filedocumented in this encounter Additional Health Concerns Infection Onset Date Last Indicated Resolved Time MRSA Comment:Negative MRSA 05/201903/11/2017 03/11/2017 10/03/2019 10:08 AM CDT documented as of this encounter Care Teams Prospect Manager Relationship Specialty Start Date End Date Vernon Mercedes MD [address] [place] [phone] PCP - General FAMILY PRACTICE 10/27/15 12/02/21 Evaristo Allan MD [address] [place] [address] [place] [employer] Engraver Hand CARDIOVASCULAR DISEASE 08/19/16 Raul Santana MD [address] [place] [address] CLINICAL CARDIAC ELECTROPHYSIOLOGY 06/16/17 Myah Handley NP [address] [place] [address] CARDIOVASCULAR DISEASE 06/16/17 07/10/19 documented as of this encounter
--- OUTSIDE RECORDS SUMMARY | 2024-04-23 05:20 | XMS_ITS | Encounter Summary ---
Author Organization [facility] Address [address] [place] [address]. [place], [place] [address] [place] [address] Care Team Providers Care Bread Supervisor Name Role Phone Vernon Mercedes MD Primary Care Provider [phone] Elza Allan MD Unavailable UnavailRaul Suresh MD Unavailable UnavailMyah Elena NP Unavailable Unavailable Danny Blackwell MD Unavailable [phone] Encounter Details Date Type Department Care Team (Late Contact Info) Description 05/29/2019 Orders Only [facility] [address], [address] [address] Kady Vann, RN Social History [...] (Late Contact Info) Description 04/25/2024 11:00 AM DRAFTING LAYOUT WORKER Appointment [facility] [address] [facility] [place] [address] Ti Bonilla MD [address] [place] [phone] 05/23/2024 3:30 PM DRAFTING LAYOUT WORKER Office Visit [facility] [address] [place] [phone] Jyoti Escobar MD [address] [place] [address] documented as of this encounter Results * ECG 12 lead (06/12/2019 10:54 AM DRAFTING LAYOUT WORKER) 06/12/2019 10:5 4 AM DRAFTING LAYOUT WORKER Narrative [facility] - 06/12/2019 12:27 PM DRAFTING LAYOUT WORKER ? [facility] ?[address] [place], [place] ??[address] ? Test Date: ?2019-06-12 Pat Name: ? ELZA MCKEON ? Department: ? Room: ? Gender: ? Male ? Keyboarding Clerk: ?? : ?1960 ? Requested By: DANNY BLACKWELL Order Number: [id number] ? Jose Antonio OSMAN: ?? Elza Allan ? Measurements Intervals ?[place] ? Rate: ? 79 ? P: ?45 TX: ? 114 ?QRS: ?73 QRSD: ? 124 ?T: ?25 QT: ? 377 ? QTc: ?433 ? Interpretive Statements SINUS RHYTHM WITH SHORT TX INTERVAL WITH OCCASIONAL SUPRAVENTRICULAR PREMATURE COMPLEXES RIGHT BUNDLE BRANCH BLOCK TING LAYOUT WORKER Procedure Note Elza Allan MD - 06/12/[address] [place] [address] Test Date: 2019-06-12 Pat Name: ELZA MCKEON Department: Room: Gender: Male Keyboarding Clerk: : 1960 Requested By: DANNY BLACKWELL Order Number: [id number] Jose Antonio MD: Elza Allan Measurements Intervals [place] Rate: 79 P: 45 TX: 114 QRS: 73 QRSD: 124 T: 25 QT: 377 QTc: 433 Interpretive Statements SINUS RHYTHM WITH SHORT TX INTERVAL WITH OCCASIONAL SUPRAVENTRICULAR PREMATURE COMPLEXES RIGHT BUNDLE BRANCH BLOCK TING LAYOUT WORKER us Danny Blackwell MD ECG ORDERABLES Final Result [facility] * (ABNORMAL) HEMOGLOBIN, GLYCOSYLATED (06/12/2019 10:33 AM DRAFTING LAYOUT WORKER) HGB A1C 9.8(H) <5.7 % 06/12/2019 11:06 AM DRAFTING LAYOUT WORKER [facility] Comment: 5.7 TO 6.4% INCREASED RISK OF DIABETES > OR = 6.5% CONSISTENT WITH DIABETES PER ADA GUIDELINES ESTIMATED AVG GLUCOSE 235(H) 70 - 140 MG/DL 06/12/2019 11:06 AM DRAFTING LAYOUT WORKER [facility] 06/12/2019 10:3 3 AM DRAFTING LAYOUT WORKER Danny Blackwell MD LABORATORY Final Result Performing Organization Address City/[facility]/ZIP Co de Phone Number [facility] [address] [place], [place] [address] [phone] documented in this encounter Visit Diagnoses Diagnosis Essential hypertension- Primary Unspecified essential hypertension Diabetes ([facility]) Essential hypertension Unspecified essential hypertension documented in this encounter Additional Health Concerns Infection Onset Date Last Indicated Resolved Time MRSA Comment:Negative MRSA 05/201903/11/2017 03/11/2017 10/03/2019 10:08 AM CDT documented as of this encounter Care Teams Bread Supervisor Relationship Specialty Start Date End Date [place] [address] PCP - General FAMILY PRACTICE 10/27/15 12/02/21 [place] [address] [place] Fine Dining Server CARDIOVASCULAR DISEASE 08/19/16 [place] [address] [place] [address] CLINICAL CARDIAC ELECTROPHYSIOLOGY 06/16/17 Myah Handley, CORE MACHINE [place] [address] [address] CARDIOVASCULAR DISEASE 06/16/17 07/10/19 Danny Blackwell MD [address] [place] [address] ORTHOPAEDIC SURGERY 05/01/19 documented as of this encounter
--- OUTSIDE RECORDS SUMMARY | 2024-04-23 05:20 | XMS_ITS | Encounter Summary ---
Author Organization [facility] Address [address] [place] [address]. [place], [place] [address] [place] [address] Care Team Providers Care Senior Director Of [employer] Name Role Phone Vernon Mercedes MD Primary Care Provider [phone] Stanislaw Rhodes MD Unavailable Unavailab Evaristo Ying MD Unavailable UnavailRaul Suresh MD Unavailable UnavailMyah Elena NP Unavailable Unavailable Deven Cleary MD Unavailable Unavailable Reason for Visit * Reason Onset Date Comments Refill Request 10/05/2018 Dabigatran Encounter Details Date Type Department Care Team (Late st Contact Info) Description 10/05/2018 Telephone [facility] [employer] [address] [place] [address] Raul Snatana MD Refill Request (Dabigatran) Social History Tobacco [...] 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 [address] [place] [address] Ti Bonilla MD [address] [place] [phone] 05/23/2024 3:30 PM INSTRUCTOR ADJUNCT PHARMACY TECHNICIAN Office Visit [facility] [address] [place] [address] Jyoti Escobar MD [address] [place] [phone] documented as of this encounter Visit Diagnoses Not on filedocumented in this encounter Additional Health Concerns Infection Onset Date Last Indicated Resolved Time MRSA Comment:Negative MRSA 05/201903/11/2017 03/11/2017 10/03/2019 10:08 AM CDT documented as of this encounter Care Teams Senior Director Of [employer] Relationship Specialty Start Date End Date [facility] [place] [facility] [place] [address] PCP - General FAMILY PRACTICE 10/27/15 12/02/21 [place] [address] CARDIOVASCULAR DISEASE 10/27/15 10/24/18 [place] [address] [place] Heater Operator Helper CARDIOVASCULAR DISEASE 08/19/16 Raul Santana MD [address] [place] [address] CLINICAL CARDIAC ELECTROPHYSIOLOGY 06/16/17 Myah Handley NP [address] [place] [address] CARDIOVASCULAR DISEASE 06/16/17 07/10/19 Deven Cleary MD [address] [place] [address] National Sales Executive INTERVENTIONAL CARDIOLOGY 03/21/18 10/24/18 documented as of this encounter
--- OUTSIDE RECORDS SUMMARY | 2024-04-23 05:20 | XMS_ITS | Encounter Summary ---
Author Organization [facility] Address [address] [place] [address]. 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 [address] [address] Ti Bonilla MD [address] [place] [phone] 05/23/2024 3:30 PM MAINTENANCE MECHANIC ELEVATORS Office Visit [facility] [address] [place] [phone] Jyoti Escobar MD [address] [place] [address] documented as of this encounter Procedures Procedure Name Priority Date/Time Associated Diagnosis Comments EVENT MONITOR 30 DAYS Routine 05/04/2018 Paroxysmal atrial fibrillation ([facility]) Obstructive sleep apnea buttermaker continuous churn current use of anticoagulant therapy Essential hypertension Mixed hyperlipidemia Diabetes ([facility]) 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 Cardiovascular stress test abnormal Atrial fibrillation ([facility]) documented in this encounter Results * EVENT MONITOR 30 DAYS (05/04/2018) Evaristo Allan MD HOLTER Final Resul t documented in this encounter Visit Diagnoses Diagnosis Paroxysmal atrial fibrillation ([facility] HHS/HCC) Atrial fibrillation Obstructive sleep apnea Obstructive sleep apnea (adult) (pediatric) USP current use of anticoagulant therapy Essential hypertension Unspecified essential hypertension Mixed hyperlipidemia Diabetes ([facility]) 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 ([facility]) Cardiovascular stress test abnormal Other nonspecific abnormal cardiovascular system function study Atrial fibrillation ([facility]) Atrial fibrillation documented in this encounter Additional Health Concerns Infection Onset Date Last Indicated Resolved Time MRSA Comment:Negative MRSA 05/201903/11/2017 03/11/2017 10/03/2019 10:08 AM CDT documented as of this encounter Care Teams Steam Flattener Relationship Specialty Start Date End Date Vernon Mercedes MD [address] [place] [phone] PCP - General FAMILY PRACTICE 10/27/15 12/02/21 Stanislaw Rhodes MD [address] [place] [address] CARDIOVASCULAR DISEASE 10/27/15 10/24/18 Evaristo Allan MD [address] [place] [address] [place] Director Vaccine CARDIOVASCULAR DISEASE 08/19/16 Raul Santana MD [address] [place] [address] CLINICAL CARDIAC ELECTROPHYSIOLOGY 06/16/17 Myah Handley NP [address] [place] [address] CARDIOVASCULAR DISEASE 06/16/17 07/10/19 Deven Cleary MD [address] [place] [address] Credit Representative INTERVENTIONAL CARDIOLOGY 03/21/18 10/24/18 documented as of this encounter
--- OUTSIDE RECORDS SUMMARY | 2024-04-23 05:20 | XMS_ITS | Encounter Summary ---
Author Organization [facility] Address [address] [place] [address]. [place], [place] [address] [place] [address] Care Team Providers Care Auto Body Customizer Name Role Phone Vernon Mercedes MD Primary Care Provider [phone] Evaristo Allan MD Unavailable UnavailRaul Suresh MD Unavailable Unavailabl Danny Lopes MD Unavailable [phone] Encounter Details Date Type Department Care Team (Latest Contact Info) Description 09/21/2019 11:12 AM CDT - 09/21/2019 12:31 PM CDT Hospital Encounter 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 file [...] st Contact Info) Description 04/25/2024 11:00 AM AIRPORT TOWER CONTROLLER Appointment [facility] [address] [place] [address] Ti Bonilla MD [address] [place] [phone] 05/23/2024 3:30 PM AIRPORT TOWER CONTROLLER Office Visit [facility] [address] [place] [phone] Jyoti Escobar MD [address] [place] [phone] documented as of this encounter Procedures Procedure [...] as of this encounter Care Teams Auto Body Customizer Relationship Specialty Start Date End Date Vernon Mercedes MD [address] [place] [address] PCP - General FAMILY PRACTICE 10/27/15 12/02/21 [place] [address] [place] Customer Service Coordinator CARDIOVASCULAR DISEASE 08/19/16 [place] [address] CLINICAL CARDIAC ELECTROPHYSIOLOGY 06/16/17 Danny Blackwell MD [address] [facility] [place] [address] ORTHOPAEDIC SURGERY 05/01/19 documented as of this encounter
--- OUTSIDE RECORDS SUMMARY | 2024-04-23 05:20 | XMS_ITS | Encounter Summary ---
Author Organization [facility] Address [address] [place] [address]. [place], [place] [address] [place] [address] Care Team Providers Care Drafting Supervisor Name Role Phone Vernon Mercedes MD Primary Care Provider [phone] Evaristo Allan MD Unavailable UnavailRaul Suersh MD Unavailable Unavailabl Myah Gee NP Unavailable Unavailable Reason for Visit * Reason Onset Date Comments Advice 11/05/2018 Encounter Details Date Type Department Care Team (Late st Contact Info) Description 11/05/[address] [facility] [address] [place] [address] Evaristo Allan MD Advice Social [...] at 11/03/2018 9:16 AM CDT ----- Needs PAPER STRIPPER documented in this encounter Plan of Treatment Upcoming Encounters Date Type Department Care Team (Late st Contact Info) Description 04/25/2024 11:00 AM CLINICAL PROJECT ASSISTANT Appointment [facility] [address] [place] [address] Ti Bonilla MD [address] [place] [phone] 05/23/2024 3:30 PM CLINICAL PROJECT ASSISTANT Office Visit [facility] [address] [place] [address] Jyoti Escobar MD [address] [place] [address] documented as of this encounter Visit Diagnoses Not on filedocumented in this encounter Additional Health Concerns Infection Onset Date Last Indicated Resolved Time MRSA Comment:Negative MRSA 05/201903/11/2017 03/11/2017 10/03/2019 10:08 AM CDT documented as of this encounter Care Teams Drafting Supervisor Relationship Specialty Start Date End Date Vernon Mercedes MD [address] [place] [address] PCP - General FAMILY PRACTICE 10/27/15 12/02/21 [place] [address] [place] Orthopedic Shoe Maker CARDIOVASCULAR DISEASE 08/19/16 [place] [address] CLINICAL CARDIAC ELECTROPHYSIOLOGY 06/16/17 [place] [address] CARDIOVASCULAR DISEASE 06/16/17 07/10/19 documented as of this encounter
--- OUTSIDE RECORDS SUMMARY | 2024-04-23 05:20 | XMS_ITS | Encounter Summary ---
Author Organization [facility] Address [address] [place] [address]. 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 [address] [place] [address] Ti Bonilla MD [address] [place] [phone] 05/23/2024 3:30 PM CLUB LICENSEE [facility] [address] [place] [address] Jyoti Escobar MD [address] [place] [address] documented as of this encounter Visit Diagnoses Not on filedocumented in this encounter Additional Health Concerns Infection Onset Date Last Indicated Resolved Time MRSA Comment:Negative MRSA 05/201903/11/2017 03/11/2017 10/03/2019 10:08 AM CDT documented as of this encounter Care Teams Construction Driller Relationship Specialty Start Date End Date Vernon Mercedes MD [address] [place] [address] PCP - General FAMILY PRACTICE 10/27/15 12/02/21 [place] [address] [place] Drying Equipment Operator CARDIOVASCULAR DISEASE 08/19/16 [place] [address] CLINICAL CARDIAC ELECTROPHYSIOLOGY 06/16/17 [place] [address] CARDIOVASCULAR DISEASE 06/16/17 07/10/19 documented as of this encounter
--- OUTSIDE RECORDS SUMMARY | 2024-04-23 05:20 | XMS_ITS | Encounter Summary ---
Author Organization [facility] Address [address] [place] [address]. [place], [place] [address] [place] [address] Care Team Providers Care Engraved Roller Inspector Name Role Phone Vernon Mercedes MD Primary Care Provider [phone] Evaristo Allan MD Unavailable Unavailpavel Santana, Raul Reyes MD Unavailable Unavailabl pablo Handley, Myah Vivas NP Unavailable Unavailable Danny Blackwell MD Unavailable [phone] Reason for Referral * Surgical (Routine) - Closed Specialty Diagnoses / Procedures Referred By Charito ledbetter Referred To Contact Diagnoses [phone] Procedures Case request operating room: Revision RIGHT Total Knee ArthroplastyNate notifiedCardiac clearance per Dr. Allan on 02/22/2019 Danny Blackwell MD [address] [place] [address] Phone: tel: fax: Referral ID Status Reason Start Date Expiration Date Visits Re quested Visits Authorized [id number] Closed 05/29/2019 06/26/2020 1 1 LE HOME SET UP PERSON Encounter Details Date Type Department Care Team (Late st Contact Info) Description 05/29/2019 Prep for Procedure [facility] [address], [place] [address] Danny Blackwell MD [address] [place] [address] Social History Tobacco Use Types Packs/Day Years [...] st Contact Info) Description 04/25/2024 11:00 AM MOBILE HOME SET UP PERSON Appointment [facility] [address] [place] [address] [place] [address] Ti Bonilla MD [address] [place] [phone] 05/23/2024 3:30 PM MOBILE HOME SET UP PERSON Office Visit [facility] [address] [place] [address] [place] [phone] Jyoti Escobar MD [address] [place] [phone] documented as of this encounter Results * (ABNORMAL) URINALYSIS WI REFLEX TO CULTURE (06/12/2019 10:38 AM MOBILE HOME SET UP PERSON) COLOR (U) YELLOW 06/12/2019 10:54 AM [facility] TRANSPARENCY CLEAR 06/12/2019 10:54 AM [facility] SPECIFIC GRAVITY (U) 1.025 1.000 - 1.025 06/12/2019 10:54 AM [facility] U PH 7.0 5.0 - 8.0 06/12/2019 10:54 AM [facility] LEUKOCYTES (U) NEGATIVE NEGATIVE 06/12/2019 10:54 AM [facility] NITRITES NEGATIVE NEGATIVE 06/12/2019 10:54 AM [facility] PROTEIN (U) NEGATIVE NEGATIVE 06/12/2019 10:54 AM [facility] URINE GLUCOSE TRACE(A) NEGATIVE 06/12/2019 10:54 AM [facility] KETONES MG/DL (U) NEGATIVE NEGATIVE 06/12/2019 10:54 AM [facility] UROBILINOGEN 0.2 <1.0 EU/DL 06/12/2019 10:54 AM [facility] BILIRUBIN (U) NEGATIVE NEGATIVE 06/12/2019 10:54 AM [facility] BLOOD (U) TRACE(A) NEGATIVE 06/12/2019 10:54 AM [facility] WBC/HPF 0-5 0 - 5 /HPF 06/12/2019 10:54 AM [facility] EPI/HPF OCCASIONAL /LPF 06/12/2019 10:54 AM [facility] CULTURE & SENSITIVITY INDICATED? NOT INDICATED 06/12/2019 10:54 AM [facility] URINE SPECIMEN OBTAINED BY CLEAN CATCH PROCEDURE / Unknown 06/12/2019 10:38 AM MOBILE HOME SET UP PERSON us Danny Blackwell MD URINE ORDERABLES Final Result Performing Organization Address [facility]/ZIP Co de Phone Number [facility] [address] [place] [address], [place] [phone] * MRSA SCREENING (06/12/2019 10:34 AM MOBILE HOME SET UP PERSON) SPECIMEN SOURCE RESPIRATORY, NOSE 06/12/2019 10:29 AM MOBILE HOME SET UP PERSON [facility] MRSA BY PCR NASAL METHICILLIN RESISTANT STAPH AUREUS NOT DETECTED 06/14/2019 11:18 AM MOBILE HOME SET UP PERSON [facility] NASAL STRUCTURE / Unknown 06/12/2019 10:34 AM MOBILE HOME SET UP PERSON us Danny Blackwell MD MICROBIOLOGY - GENERAL ORDERAB LES Final Result [facility] [address] [place] [address], [place] [phone] [facility] [place] [address], * (ABNORMAL) CBC W/DIFF AUTOMATED (06/12/2019 10:33 AM MOBILE HOME SET UP PERSON) WBC 6.3 4.5 - 10.8 x10'3/uL 06/12/2019 10:45 AM [facility] RBC 4.54 4.50 - 6.10 x10'6/uL 06/12/2019 10:45 AM [facility] HGB 12.5(L) 13.0 - 18.0 G/DL 06/12/2019 10:45 AM [facility] HCT 39.1 37.0 - 52.0 % 06/12/2019 10:45 AM [facility] MCV 86.1 78.0 - 100.0 FL 06/12/2019 10:45 AM [facility] MCH 27.5 27.0 - 31.0 PG 06/12/2019 10:45 AM [facility] MCHC 32.0(L) 33.0 - 36.0 G/DL 06/12/2019 10:45 AM [facility] RDW 13.6 11.5 - 14.5 % 06/12/2019 10:45 AM [facility] PLT 272 150 - 350 x10'3/uL 06/12/2019 10:45 AM [facility] MPV 11.1(H) 7.4 - 10.4 FL 06/12/2019 10:45 AM [facility] DIFFERENTIAL COMMENT NORMAL REFERENCE RANGE NOT ESTABLISHED FOR THE PROPORTIONAL LEUKOCYTE DIFFERENTIAL. 06/12/2019 10:45 AM [facility] SEG NEUTROPHILS 63.4 % 0 10:45 AM [facility] LYMPHOCYTES 23.8 % 06/12/2019 10:45 AM [facility] MONOCYTES 9.8 % 06/12/2019 10:45 AM [facility] EOSINOPHILS 1.7 % 06/12/2019 10:45 AM [facility] BASOPHILS 1.1 % 06/12/2019 10:45 AM [facility] IMMATURE GRANS % 0.2 % 06/12/19 20 10:45 AM [facility] NRBC 0.0 % 06/12/2019 10:45 AM [facility] ABS. NEUTROPHILS 3.99 1.60 - 8.30 x10'3/uL 06/12/2019 10:45 AM [facility] ABS. LYMPHOCYTES 1.50 0.80 - 4.70 x10'3/uL 06/12/2019 10:45 AM [facility] ABS. MONOCYTES 0.62 0.00 - 1.50 x10'3/uL 06/12/2019 10:45 AM [facility] ABS. EOSINOPHILS 0.11 0.00 - 0.40 x10'3/uL 06/12/2019 10:45 AM [facility] ABS. BASOPHILS 0.07 0.00 - 0.20 x10'3/uL 06/12/2019 10:45 AM [facility] ABS. IMMATURE GRANULOCYTES 0.01 0.00 - 0.03 x10'3/uL 06/12/2019 10:45 AM [facility] ABS. NUCLEATED RBC'S 0.00 0.00 x10'3/uL 06/12/2019 10:45 AM [facility] 06/12/2019 10:3 3 AM [facility] Danny Blackwell MD LABORATORY Final Result [facility] [address] [place] [address], * (ABNORMAL) BASIC METABOLIC PANEL (06/12/2019 10:33 AM MOBILE HOME SET UP PERSON) SODIUM S/P/B 140 136 - 145 MMOL/L 06/12/2019 10:54 AM [facility] POTASSIUM S/P/B 4.5 3.5 - 5.1 MMOL/L 06/12/2019 10:54 AM [facility] CHLORIDE S/P/B 103 98 - 107 MMOL/L 06/12/2019 10:54 AM [facility] CO2 28.1 21.0 - 32.0 MMOL/L 06/12/2019 10:54 AM [facility] GLUCOSE 207(H) 70 - 99 MG/DL 06/12/2019 10:54 AM [facility] Comment: FASTING GLUCOSE 100 TO 125 MG/DL IS CONSISTENT WITH IMPAIRED FASTING GLUCOSE. FASTING GLUCOSE >125 MG/DL IS CONSISTENT WITH DIABETES. RANDOM GLUCOSE >200 MG/DL WITH HYPERGLYCEMIC SYMPTOMS IS CONSISTENT WITH DIABETES. PER ADA GUIDELINES BUN 13 6 - 24 MG/DL 06/12/2019 10:54 AM [facility] CREATININE S/P/B 0.83 0.70 - 1.30 MG/DL 06/12/2019 10:54 AM [facility] CALCIUM S/P/B 8.9 8.4 - 10.5 MG/DL 06/12/2019 10:54 AM [facility] ANION GAP 8.9 5.0 - 15.0 MMOL/L 06/12/2019 10:54 AM [facility] OSMOLALITY (CALC) 296 MOSM/KG 020 10:54 AM [facility] Comment:REFERENCE RANGE NOT ESTABLISHED EGFR NON-AFR. AMER. >90 >89 ML/MIN/1. 73 M2 06/12/2019 10:54 AM [facility] EGFR AFR. AMER. >90 >89 ML/MIN/1. 73 M2 06/12/2019 10:54 AM [facility] GFR NOTES GFR REFERENCE S: 06/12/2019 10:54 AM [facility] Comment: THE ESTIMATED GFR [...] <15 ml/min/1.73 m2 06/12/2019 10:3 3 AM MOBILE HOME SET UP PERSON Danny Blackwell MD LABORATORY Final Result [facility] [address] [employer] [place] [address], documented in this encounter Visit Diagnoses Diagnosis Mechanical complication of internal orthopedic device, implant or graft, initial encounter ([facility])- Primary documented in this encounter Additional Health Concerns Infection Onset Date Last Indicated Resolved Time MRSA Comment:Negative MRSA 05/201903/11/2017 03/11/2017 10/03/2019 10:08 AM CDT documented as of this encounter Care Teams Engraved Roller Inspector Relationship Specialty Start Date End Date Vernon Mercedes MD [address] [place] [address] PCP - General FAMILY PRACTICE 10/27/15 12/02/21 Evaristo Allan MD [address] [place] [address] [place] Retail Sales Professional CARDIOVASCULAR DISEASE 08/19/16 Raul Santana MD [facility] [place] [address] CLINICAL CARDIAC ELECTROPHYSIOLOGY 06/16/17 Myah Handley, ALEXANDRE [facility] [place] [address] CARDIOVASCULAR DISEASE 06/16/17 07/10/19 Danny Blackwell MD [address] [place] [address] ORTHOPAEDIC SURGERY 05/01/19 documented as of this encounter
--- OUTSIDE RECORDS SUMMARY | 2024-04-23 05:20 | XMS_ITS | Encounter Summary ---
Author Organization [facility] Address [address] [place] [address]. [place], [place] [address] [place] [address] Care Team Providers Care Youth Corrections Officer Name Role Phone Vernon Mercedes MD Primary Care Provider [phone] Evaristo Allan MD Unavailable Raul Workman MD Unavailable Unavailabl Myah Gee NP Unavailable Unavailable Reason for Visit * Reason Onset Date Comments Medication Problem 02/01/2019 Insurance Encounter Details Date Type Department Care Team (Late st Contact Info) Description 02/01/2019 Telephone [facility] [address] [place] [address] Raul Santana MD Medication Problem [...] 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 Spoke with Wallace at [facility] who reports pradaxa was approved through insurance and was sent to [facility]. [facility] confirms and filled the rx 2 days ago. Informed Evaristo that he may milk pickup driver the rx at any time. He voiced understanding had no further questions. documented in this encounter Plan of Treatment Upcoming Encounters Date Type Department Care Team (Late st Contact Info) Description 04/25/2024 11:00 AM PARTS SALESMAN Appointment [facility] [address] [place] [address] Ti Bonilla MD [address] [place] [phone] 05/23/2024 3:30 PM PARTS SALESMAN Office Visit [facility] [address] [place] [address] Jyoti Escobar MD [address] [place] [address] documented as of this encounter Visit Diagnoses Not on filedocumented in this encounter Additional Health Concerns Infection Onset Date Last Indicated Resolved Time MRSA Comment:Negative MRSA 05/201903/11/2017 03/11/2017 10/03/2019 10:08 AM CDT documented as of this encounter Care Teams Youth Corrections Officer Relationship Specialty Start Date End Date Vernon Mercedes MD [address] [place] [address] PCP - General FAMILY PRACTICE 10/27/15 12/02/21 [place] [address] [place] Skin Piler CARDIOVASCULAR DISEASE 08/19/16 [place] [address] CLINICAL CARDIAC ELECTROPHYSIOLOGY 06/16/17 [place] [address] CARDIOVASCULAR DISEASE 06/16/17 07/10/19 documented as of this encounter
--- OUTSIDE RECORDS SUMMARY | 2024-04-23 05:20 | XMS_ITS | Encounter Summary ---
Author Organization [facility] Address [address] [place] [address]. [place], [place] [address] [place] [address] Care Team Providers Care Diamond Assorter Name Role Phone Veronn Mercedes MD Primary Care Provider [phone] Stanislaw Rhodes MD Unavailable Unavailab Evaristo Ying MD Unavailable UnavailRaul Suresh MD Unavailable UnavailMyah Elena NP Unavailable Unavailable Deven Cleary MD Unavailable Unavailable Reason for Visit * Reason Onset Date Comments Chest Pain 10/17/2018 Encounter Details Date Type Department Care Team (Late st Contact Info) Description 10/17/2018 Telephone [facility] [address] [place] [address] Myah Handley NP Chest Pain [...] with RCW in his last appointment. Offered [place] app[place] in [place] 10/26 at 3 PM * Chelsea Garcia LPN - 10/17/2018 9:57 AM CDT Patient here to see Myah in clinic for follow up on atrial fibrillation. 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 Patient has used his nitroglycerine andpain is relieved. Myah wanted me to message Dr Allan's Office to make them aware and to f/u with patient, Patient aware a message was sent to Dr Allan's Office . documented in this encounter Plan of Treatment Upcoming Encounters Date Type Department Care Team (Late st Contact Info) Description 04/25/2024 11:00 AM WEATHER STRIPPER Appointment [facility] [address] [place] [address] Ti Bonilla MD [address] [place] [phone] 05/23/2024 3:30 PM WEATHER STRIPPER Office Visit [facility] [address] [place] [address] Jyoti Escobar MD [address] [place] [phone] documented as of this encounter Visit Diagnoses Not on filedocumented in this encounter Additional Health Concerns Infection Onset Date Last Indicated Resolved Time MRSA Comment:Negative MRSA 05/201903/11/2017 03/11/2017 10/03/2019 10:08 AM CDT documented as of this encounter Care Teams Diamond Assorter Relationship Specialty Start Date End Date Vernon Mercedes MD [address] [place] [phone] PCP - General FAMILY PRACTICE 10/27/15 12/02/21 Stanislaw Rhodes MD [address] [place] [address] CARDIOVASCULAR DISEASE 10/27/15 10/24/18 Evaristo Allan MD [address] [place] [address] Timnath Society Reporter CARDIOVASCULAR DISEASE 08/19/16 Raul Santana MD [address] [place] [address] CLINICAL CARDIAC ELECTROPHYSIOLOGY 06/16/17 Myah Handley MUFFLE OPERATOR [address] [place] [address] CARDIOVASCULAR DISEASE 06/16/17 07/10/19 Deven Cleary MD [address] [place] [address] Lining Inserter INTERVENTIONAL CARDIOLOGY 03/21/18 10/24/18 documented as of this encounter
--- OUTSIDE RECORDS SUMMARY | 2024-04-23 05:20 | XMS_ITS | Encounter Summary ---
Author Organization [facility] Address [address] [place] [address]. [place], [place] [address] [place] [address] Care Team Providers Care Field Artillery Basic Name Role Phone Vernon Mercedes MD Primary Care Provider [phone] Evaristo Allan MD Unavailable UnavailRaul Suresh MD Unavailable Unavailabl Myah Gee NP Unavailable Unavailable Danny Blackwell MD Unavailable Reason for Visit * Reason Onset Date Comments Refill Request 07/10/2019 Encounter Details Date Type Department Care Team (Late st Contact Info) Description 07/10/2019 Telephone [employer] [facility] [address] [place] [address] Evaristo Allan MD Refill Request [...] 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 Pt last seen 02/2019 and to f/u 02/2020. Refill given. documented in this encounter Plan of Treatment Upcoming Encounters Date Type Department Care Team (Late st Contact Info) Description 04/25/2024 11:00 AM QUALITY ASSURANCE/R&D LAB TECHNICIAN Appointment [facility] [address] [place] [address] Ti Bonilla MD [address] [place] [phone] 05/23/2024 3:30 PM QUALITY ASSURANCE/R&D LAB TECHNICIAN Office Visit [facility] [address] [place] [phone] Jyoti Escobar MD [address] [place] [phone] documented as of this encounter Visit Diagnoses Not on filedocumented in this encounter Additional Health Concerns Infection Onset Date Last Indicated Resolved Time MRSA Comment:Negative MRSA 05/201903/11/2017 03/11/2017 10/03/2019 10:08 AM CDT documented as of this encounter Care Teams Field Artillery Basic Relationship Specialty Start Date End Date Vernon Mercedes MD [address] [place] [address] PCP - General FAMILY PRACTICE 10/27/15 12/02/21 Evaristo Allan MD [facility] [place] [address] Jasper Engravings Polisher CARDIOVASCULAR DISEASE 08/19/16 Raul Santana MD [facility] [place] [address] CLINICAL CARDIAC ELECTROPHYSIOLOGY 06/16/17 Myah Handley NP [address] [place] [address] CARDIOVASCULAR DISEASE 06/16/17 07/10/19 Danny Blackwell MD [address] [place] [address] ORTHOPAEDIC SURGERY 05/01/19 documented as of this encounter
--- OUTSIDE RECORDS SUMMARY | 2024-04-23 05:20 | XMS_ITS | Encounter Summary ---
Author Organization [facility] Address [address] [place] [address]. [place], [place] [address] [place] [address] Care Team Providers Care Continuous Drier Operator Name Role Phone Vernon Mercedes MD Primary Care Provider [phone] Stanislaw Rhodes MD Unavailable Unavailab Evaristo Ying MD Unavailable UnavailRaul Suresh MD Unavailable UnavailMyah Elena NP Unavailable Unavailable Deven Cleary MD Unavailable Unavailable Reason for Visit * Reason Onset Date Comments Results 06/07/2018 Encounter Details Date Type Department Care Team (Late st Contact Info) Description 06/07/2018 Telephone [employer] [facility] [address] [place] [address] Evaristo Allan MD Results Social [...] observe and call for problems or concerns AL TEACHER * Marcelle Madden RN - 06/07/2018 8:23 AM CST ----- Message from Evaristo Allan MD sent at 06/06/2018 3:04 PM CHORAL TEACHER ----- Event monitor: No Afib. Palpitations reported to occur during HR of 90 bpm, not during sinus tachycardia. Let's continue present meds & observe for now. AL TEACHER documented in this encounter Plan of Treatment Upcoming Encounters Date Type Department Care Team (Late st Contact Info) Description 04/25/2024 11:00 AM CHORAL TEACHER Appointment [facility] [address] [place], [place] [address] Ti Bonilla MD [address] [place] [phone] 05/23/2024 3:30 PM CHORAL TEACHER Office Visit [facility] [address] [place] [address] Jyoti Escobar MD [address] [place] [address] documented as of this encounter Visit Diagnoses Not on filedocumented in this encounter Additional Health Concerns Infection Onset Date Last Indicated Resolved Time MRSA Comment:Negative MRSA 05/201903/11/2017 03/11/2017 10/03/2019 10:08 AM CDT documented as of this encounter Care Teams Continuous Drier Operator Relationship Specialty Start Date End Date Vernon Mercedes MD [address] [place] [phone] PCP - General FAMILY PRACTICE 10/27/15 12/02/21 Stanislaw Rhodes MD [address] [place] [address] CARDIOVASCULAR DISEASE 10/27/15 10/24/18 Evaristo Allan MD [address] [place] [address] [place] Mechanical Adjuster CARDIOVASCULAR DISEASE 08/19/16 Raul Santana MD [address] [place] [address] CLINICAL CARDIAC ELECTROPHYSIOLOGY 06/16/17 Myah Handley NP [address] [place] [address] CARDIOVASCULAR DISEASE 06/16/17 07/10/19 Deven Cleary MD [address] [place] [address] Elevator Constructor Hydraulic INTERVENTIONAL CARDIOLOGY 03/21/18 10/24/18 documented as of this encounter
--- OUTSIDE RECORDS SUMMARY | 2024-04-23 05:20 | XMS_ITS | Encounter Summary ---
Author Organization [facility] Address [address] [place] [address]. [place], [place] [address] [place] [address] Care Team Providers Care Test Fixture Assembler Name Role Phone Vernon Mercedes MD Primary Care Provider [phone] Stanislaw Rhodes MD Unavailable Unavailab Evaristo Ying MD Unavailable UnavailRaul Suresh MD Unavailable UnavailMyah Elena NP Unavailable Unavailable Deven Cleary MD Unavailable Unavailable Reason for Visit * Reason Onset Date Comments Letter 08/30/2018 Final Letter Encounter Details Date Type Department Care Team (Late st Contact Info) Description 08/30/2018 Telephone [employer] [facility] [address] [place] [address] Raul Santana MD Letter (Final [...] 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 [address] [place] [address] Ti Bonilla MD [address] [place] [phone] 05/23/2024 3:30 PM BRICKMASON SUPERVISOR Office Visit [facility] [address] [place] [address] Jyoti Escobar MD [address] [place] [phone] documented as of this encounter Visit Diagnoses Not on filedocumented in this encounter Additional Health Concerns Infection Onset Date Last Indicated Resolved Time MRSA Comment:Negative MRSA 05/201903/11/2017 03/11/2017 10/03/2019 10:08 AM CDT documented as of this encounter Care Teams Test Fixture Assembler Relationship Specialty Start Date End Date Vernon Mercedes MD [address] [place] [address] PCP - General FAMILY PRACTICE 10/27/15 12/02/21 [place] [address] CARDIOVASCULAR DISEASE 10/27/15 10/24/18 [place] [address] [place] Soft Drink Powder Mixer CARDIOVASCULAR DISEASE 08/19/16 [place] [address] CLINICAL CARDIAC ELECTROPHYSIOLOGY 06/16/17 [place] [address] CARDIOVASCULAR DISEASE 06/16/17 07/10/19 Deven Cleary MD [address] [place] [address] Aerial Lineman INTERVENTIONAL CARDIOLOGY 03/21/18 10/24/18 documented as of this encounter
--- OUTSIDE RECORDS SUMMARY | 2024-04-23 05:20 | XMS_ITS | Encounter Summary ---
Author Organization [facility] Address [address] [place] [address]. [place], [place] [address] [place] [address] Care Team Providers Care Clinical Project Assistant Name Role Phone Vernon Mercedes MD Primary Care Provider [phone] Evaristo Allan MD Unavailable Unavailabl Raul Duran MD Unavailable Unavailabl Danny Lopes MD Unavailable [phone] Encounter Details Date Type Department Care Team (Late st Contact Info) Description 08/22/[address] [facility] [address] [place] [address] Vernon Mercedes MD [address] [place] [address] Social History Tobacco Use Types [...] st Contact Info) Description 04/25/2024 11:00 AM INTERLOCKING INSTALLER Appointment [facility] [address] [facility] [address] Ti Bonilla MD [address] [place] [phone] 05/23/2024 3:30 PM INTERLOCKING INSTALLER Office Visit [facility] [address] [place] [address] Jyoti Escoabr MD [address] [place] [address] documented as of this encounter Results * (ABNORMAL) HEMOGLOBIN, GLYCOSYLATED (08/22/2019 2:35 PM CDT) HGB A1C 8.5(H) <5.7 % 08/22/2019 2:51 PM CDT [facility] Comment: 5.7 TO 6.4% INCREASED RISK OF DIABETES > OR = 6.5% CONSISTENT WITH DIABETES PER ADA GUIDELINES ESTIMATED AVG GLUCOSE 197(H) 70 - 140 MG/DL 08/22/2019 2:51 PM CDT [facility] 08/22/2019 2:35 PM CDT Vernon Mercedes MD LABORATORY Final Result [facility] [place] [address], documented in this encounter Visit Diagnoses Diagnosis Diabetes mellitus type 2, uncontrolled- Primary Type II or unspecified type diabetes mellitus without mention of complication, uncontrolled documented in this encounter Additional Health Concerns Infection Onset Date Last Indicated Resolved Time MRSA Comment:Negative MRSA 05/201903/11/2017 03/11/2017 10/03/2019 10:08 AM CDT documented as of this encounter Care Teams Clinical Project Assistant Relationship Specialty Start Date End Date Vernon Mercedes MD [address] [place] [address] PCP - General FAMILY PRACTICE 10/27/15 12/02/21 Evaristo Allan MD [address] [place] [address] Elizabeth [employer] Digital Marketing Social Media And Crm CARDIOVASCULAR DISEASE 08/19/16 Raul Santana MD [address] [place] [address] CLINICAL CARDIAC ELECTROPHYSIOLOGY 06/16/17 Danny Blackwell MD [address] [place], [place] [phone] ORTHOPAEDIC SURGERY 05/01/19 documented as of this encounter
--- OUTSIDE RECORDS SUMMARY | 2024-04-23 05:20 | XMS_ITS | Encounter Summary ---
Author Organization [facility] Address [address] [place] [address]. [place] [address] [place] [address] Care Team Providers Care Application Analyst Name Role Phone Vernon Mercedes MD Primary Care Provider [phone] Stanislaw Rhodes MD Unavailable Unavailab Evaristo Ying MD Unavailable UnavailRaul Suresh MD Unavailable UnavailMyah Elena NP Unavailable Unavailable Deven Cleary MD Unavailable Unavailable Encounter Details Date Type Department Care Team (Late st Contact Info) Description 05/05/2018 Orders Only [facility] [address] [place] [address] Mendel Hobbs, RN Social History [...] 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 [address] [place] [address] Ti Bonilla MD [address] [place] [phone] 05/23/2024 3:30 PM MEDICAL OFFICE ASSISTANT INSTRUCTOR [facility] [address] [place] [address] Jyoti Escobar MD [address] [place] [address] documented as of this encounter Visit Diagnoses Not on filedocumented in this encounter Additional Health Concerns Infection Onset Date Last Indicated Resolved Time MRSA Comment:Negative MRSA 05/201903/11/2017 03/11/2017 10/03/2019 10:08 AM CDT documented as of this encounter Care Teams Application Analyst Relationship Specialty Start Date End Date Vernon Mercedes MD [address] [place] [address] PCP - General FAMILY PRACTICE 10/27/15 12/02/21 [place] [address] CARDIOVASCULAR DISEASE 10/27/15 10/24/18 [place] [address] [place] Adult Basic Education Manager CARDIOVASCULAR DISEASE 08/19/16 [place] [address] CLINICAL CARDIAC ELECTROPHYSIOLOGY 06/16/17 Myah Handley [place] [address] CARDIOVASCULAR DISEASE 06/16/17 07/10/19 [place] [place] [address] Transportation Refrigeration Technician INTERVENTIONAL CARDIOLOGY 03/21/18 10/24/18 documented as of this encounter
--- OUTSIDE RECORDS SUMMARY | 2024-04-23 05:20 | XMS_ITS | Encounter Summary ---
Author Organization [facility] Address [address] [place] [address]. [place], [place] [address] [place] [address] Care Team Providers Care Pull Socket Assembler Name Role Phone Vernon Mercedes MD Primary Care Provider [phone] Evaristo Allan MD Unavailable Unavailabl e Raul Santana MD Unavailable Unavailabl e Danny Blackwell MD Unavailable [phone] Reason for Referral * Imaging (Emergency) - Closed Specialty Diagnoses / Procedures Referred By Charito ledbetter Referred To Contact RADIOLOGY Procedures CT ABD+PEL W IV CON ONLY Bj Salinas MD Phone: tel: fax: Referral ID Status Reason Start Date Expiration Date Visits Re quested Visits Authorized [id number] Closed 07/11/2019 08/10/2020 1 1 Reason for Visit * Reason Comments Abdominal Pain Encounter Details Date Type Department Care Team (Late st Contact Info) Description 07/11/2019 4:31 PM CDT - 07/11/2019 6:35 PM CDT Emergency [facility] [address] [place] [address] Bj Salinas MD [address] [place] [address] Abdominal Pain Discharge Disposition: Home or [...] * Severe Abdominal Pain Discharge Instructions, Adult (Mongolian) documented in this encounter Medications at Time [...] review of systems. History provided by: Patient infrastructure manager used: No ALLERGIES Allergies Allergen Reactions ??? [...] CATHETERIZATION 01/04/2018 occluded prox RCA w/well developed oovl-xn-uwvbi collaterals lvef 55-60% ??? FRACTURE SURGERY ??? HERNIA REPAIR ??? KNEE ARTHROPLASTY ??? LITHOTRIPSY ??? XA ABLATION 05/19/2016 ??? XA CORONARY INTERVENTION 03/24/2018 QUALITY ANALYST/TECHNICAL WRITER Dr Cleary SOCIAL HISTORY Social History Socioeconomic History ??? Marital status: Spouse name: Not on file ??? Number of children: 1 ??? Years of education: Not on file ??? Highest education level: Not on file Occupational History ??? 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 Financial resource strain: Not [...] file Gets together: Not on file Attends zoroastrian service: Not on file Active member of [...] IV CON ONLY Final Result by User, [id number] (07/10 1822) CT ABD+PEL W CON: 07/11/2019 [...] Range COLOR (U) YELLOW TRANSPARENCY CLEAR Specific [facility] (U) 1.025 1.000 - 1.025 U PH [...] 12 tablet, Refills: 0 Class: Print Pharmacy: [facility]/pharmacy #[id number] - [place] - [address] ( #: [phone]) !! - Potential duplicate medications found. Please discuss with provider. Vernon Mercedes MD [address] [place] [phone] In 2 days If symptoms worsen SNOMED CT(R) 1. Left lower quadrant abdominal pain LEFT LOWER QUADRANT PAIN Vernon Mercedes MD [address] [place] [phone] In 2 days If symptoms worsen New [...] information inthe transcribed note. Authenticated by Bj aSlinas MD 07/11/19 1836 documented in this encounter Plan of Treatment Upcoming Encounters Date Type Department Care Team (Late st Contact Info) Description 04/25/2024 11:00 AM ALTERATION TAILOR APPRENTICE Appointment [facility] [address] [place] [address] Ti Bonilla MD [address] [place] [phone] 05/23/2024 3:30 PM ALTERATION TAILOR APPRENTICE Office Visit [facility] [place] [address] Jyoti Escobar MD [address] [place] [address] documented as of this encounter Procedures Procedure [...] COLOR (U) YELLOW 07/11/2019 5:27 PM CDT [facility] TRANSPARENCY CLEAR 07/11/2019 5:27 PM CDT [facility] SPECIFIC GRAVITY (U) 1.025 1.000 - 1.025 07/11/2019 5:27 PM CDT [facility] U PH 7.0 5.0 - 8.0 07/11/2019 5:27 PM CDT [facility] LEUKOCYTES (U) NEGATIVE NEGATIVE 07/11/2019 5:27 PM CDT [facility] NITRITES NEGATIVE NEGATIVE 07/11/2019 5:27 PM CDT [facility] PROTEIN (U) NEGATIVE NEGATIVE 07/11/2019 5:27 PM CDT [facility] URINE GLUCOSE 1+(A) NEGATIVE 07/11/2019 5:27 PM CDT [facility] KETONES MG/DL (U) NEGATIVE NEGATIVE 07/11/2019 5:27 PM CDT [facility] UROBILINOGEN 0.2 <1.0 EU/DL 07/11/2019 5:27 PM CDT [facility] BILIRUBIN (U) NEGATIVE NEGATIVE 07/11/2019 5:27 PM CDT [facility] BLOOD (U) NEGATIVE NEGATIVE 07/11/2019 5:27 PM CDT [facility] WBC/HPF 0-5 0 - 5 /HPF 07/11/2019 5:27 PM CDT [facility] RBC/HPF 0-5 0 - 5 /HPF 07/11/2019 5:27 PM CDT [facility] EPI/HPF MANY /LPF 07/11/2019 5:27 PM CDT [facility] CULTURE & SENSITIVITY INDICATED? NOT INDICATED 07/11/2019 5:27 PM CDT [facility] URINE SPECIMEN OBTAINED BY CLEAN CATCH PROCEDURE / Unknown 07/11/2019 5:10 PM CDT Bj Salinas MD URINE ORDERABLES Final Result [facility] [address] [place] [address], * (ABNORMAL) CBC W/DIFF AUTOMATED (07/11/2019 5:00 PM CDT) WBC 6.9 4.5 - 10.8 x10'3/uL 07/11/2019 5:13 PM CDT [facility] RBC 4.30(L) 4.50 - 6.10 x10'6/uL 07/11/2019 5:13 PM CDT [facility] HGB 11.9(L) 13.0 - 18.0 G/DL 07/11/2019 5:13 PM CDT [facility] HCT 37.0 37.0 - 52.0 % 07/11/2019 5:13 PM CDT [facility] MCV 86.0 78.0 - 100.0 FL 07/11/2019 5:13 PM CDT [facility] MCH 27.7 27.0 - 31.0 PG 07/11/2019 5:13 PM CDT [facility] MCHC 32.2(L) 33.0 - 36.0 G/DL 07/11/2019 5:13 PM CDT [facility] RDW 14.0 11.5 - 14.5 % 07/11/2019 5:13 PM CDT [facility] PLT 305 150 - 350 x10'3/uL 07/11/2019 5:13 PM CDT [facility] MPV 11.1(H) 7.4 - 10.4 FL 07/11/2019 5:13 PM CDT [facility] DIFFERENTIAL COMMENT NORMAL REFERENCE RANGE NOT ESTABLISHED FOR THE PROPORTIONAL LEUKOCYTE DIFFERENTIAL. 07/11/2019 5:13 PM CDT [facility] SEG NEUTROPHILS 55.5 % 0 5:13 PM CDT [facility] LYMPHOCYTES 27.9 % 07/11/2019 5:13 PM CDT [facility] MONOCYTES 13.3 % 07/11/2019 5:13 PM CDT [facility] EOSINOPHILS 2.0 % 07/11/2019 5:13 PM CDT [facility] BASOPHILS 1.0 % 07/11/2019 5:13 PM CDT [facility] IMMATURE GRANS % 0.3 % 07/11/19 20 5:13 PM CDT [facility] NRBC 0.0 % 07/11/2019 5:13 PM CDT [facility] ABS. NEUTROPHILS 3.83 1.60 - 8.30 x10'3/uL 07/11/2019 5:13 PM CDT [facility] ABS. LYMPHOCYTES 1.93 0.80 - 4.70 x10'3/uL 07/11/2019 5:13 PM CDT [facility] ABS. MONOCYTES 0.92 0.00 - 1.50 x10'3/uL 07/11/2019 5:13 PM CDT [facility] ABS. EOSINOPHILS 0.14 0.00 - 0.40 x10'3/uL 07/11/2019 5:13 PM CDT [facility] ABS. BASOPHILS 0.07 0.00 - 0.20 x10'3/uL 07/11/2019 5:13 PM CDT [facility] ABS. IMMATURE GRANULOCYTES 0.02 0.00 - 0.03 x10'3/uL 07/11/2019 5:13 PM CDT [facility] ABS. NUCLEATED RBC'S 0.00 0.00 x10'3/uL 07/11/2019 5:13 PM CDT [facility] 07/11/2019 5:00 PM CDT us Bj Salinas MD LABORATORY Final Result [facility] [address] [place] [id number], * (ABNORMAL) COMPREHENSIVE METABOLIC PANEL (07/11/2019 5:00 PM CDT) SODIUM S/P/B 139 136 - 145 MMOL/L 07/11/2019 6:01 PM CDT [facility] POTASSIUM S/P/B 4.5 3.5 - 5.1 MMOL/L 07/11/2019 6:01 PM CDT [facility] CHLORIDE S/P/B 102 98 - 107 MMOL/L 07/11/2019 6:01 PM CDT [facility] CO2 26.9 21.0 - 32.0 MMOL/L 07/11/2019 6:01 PM CDT [facility] GLUCOSE 121(H) 70 - 99 MG/DL 07/11/2019 6:01 PM CDT [facility] Comment: FASTING GLUCOSE 100 TO 125 MG/DL IS CONSISTENT WITH IMPAIRED FASTING GLUCOSE. FASTING GLUCOSE >125 MG/DL IS CONSISTENT WITH DIABETES. RANDOM GLUCOSE >200 MG/DL WITH HYPERGLYCEMIC SYMPTOMS IS CONSISTENT WITH DIABETES. PER ADA GUIDELINES BUN 14 6 - 24 MG/DL 07/11/2019 6:01 PM CDT [facility] CREATININE S/P/B 0.76 0.70 - 1.30 MG/DL 07/11/2019 6:01 PM CDT [facility] CALCIUM S/P/B 9.3 8.4 - 10.5 MG/DL 07/11/2019 6:01 PM [facility] BILIRUBIN TOTAL S/P/B 0.3 0.2 - 1.0 MG/DL 07/11/2019 6:01 PM [facility] Comment: THIS ASSAY IS NOT RECOMMENDED FOR PATIENTS UNDERGOING TREATMENT WITH ELTROMBOPAG DUE TO THE POTENTIAL FOR FALSELY ELEVATED RESULTS. ALKALINE PHOSPHATASE S/P/B 73 45 - 115 U/L 07/11/2019 6:01 PM [facility] AST 17 15 - 37 U/L 07/11/2019 6:01 PM [facility] ALT 34 16 - 63 U/L 07/11/2019 6:01 PM [facility] TOTAL PROTEIN S/P/B 6.9 6.4 - 8.2 G/DL 07/11/2019 6:01 PM [facility] ALBUMIN S/P/B 3.2(L) 3.4 - 5.0 G/DL 07/11/2019 6:01 PM [facility] ANION GAP 10.1 5.0 - 15.0 MMOL/L 07/11/2019 6:01 PM [facility] OSMOLALITY (CALC) 290 MOSM/KG 020 6:01 PM [facility] Comment:REFERENCE RANGE NOT ESTABLISHED EGFR NON-AFR. AMER. >90 >89 ML/MIN/1. 73 M2 07/11/2019 6:01 PM [facility] EGFR AFR. AMER. >90 >89 ML/MIN/1. 73 M2 07/11/2019 6:01 PM [facility] GFR NOTES GFR REFERENCE S: 07/11/2019 6:01 PM [facility] Comment: THE ESTIMATED GFR IS [...] CDT Bj Salinas MD LABORATORY Final Result [facility] [address] [place] [address], documented in this encounter Visit Diagnoses Diagnosis [...] documented as of this encounter Care Teams Pull Socket Assembler Relationship Specialty Start Date End Date Vernon Mercedes MD [address] [place] [phone] PCP - General FAMILY PRACTICE 10/27/15 12/02/21 Evaristo Allan MD [address] [place] [address] Sylmar Garageman CARDIOVASCULAR DISEASE 08/19/16 Raul Santana MD [address] [place] [address] CLINICAL CARDIAC ELECTROPHYSIOLOGY 06/16/17 Danny Blackwell MD [address] [place] [address] ORTHOPAEDIC SURGERY 05/01/19 documented as of this encounter
--- OUTSIDE RECORDS SUMMARY | 2024-04-23 05:20 | XMS_ITS | Encounter Summary ---
Author Organization [facility] Address [address] [place] [address]. [place], [place] [address] [place] [address] Care Team Providers Care Videogame Tester Name Role Phone Vernon Delgado MD Primary Care Provider [phone] Evaristo Allan MD Unavailable UnavailRaul Suresh MD Unavailable UnavailMyah Elena NP Unavailable Unavailable Danny Blackwell MD Unavailable [phone] Reason for Visit * Reason Comments Follow Up Encounter Details Date Type Department Care Team (Late st Contact Info) Description 02/22/2019 12:30 PM DYE OPERATOR Office Visit [facility] [address] Evaristo Allan MD Follow Up Social History [...] 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 Not on file Not on file documented as of this encounter Last Filed Vital Signs Vital Sign Reading Time Taken Comments Blood Pressure 109/72 02/23/2019 10:39 AM DYE OPERATOR Pulse 98 02/23/2019 10:39 AM DYE OPERATOR Temperature - - Respiratory Rate 16 02/23/2019 10:39 AM DYE OPERATOR Oxygen Saturation 97% 02/23/2019 10:39 AM DYE OPERATOR Inhaled Oxygen Concentration - - Weight 124.7 kg (275 lb) 02/23/2019 10:39 AM DYE OPERATOR Height 175.3 cm (5' 9 ) 02/23/2019 10:39 AM DYE OPERATOR Body Mass Index 40.61 02/23/2019 10:39 AM DYE OPERATOR documented in this encounter Patient Instructions * Patient Instructions* Kaylin Wetzel RN - 02/22/2019 12:30 PM DYE OPERATOR 1. D/C Brilinta in 1 month and restart ASA 81 2. RTC in 1 year OPERATOR documented in this encounter Progress Notes [...] CATHETERIZATION 01/04/2018 occluded prox RCA w/well developed zmez-aw-[id number] collaterals lvef 55-60% ??? FRACTURE SURGERY ??? HERNIA REPAIR ??? KNEE ARTHROPLASTY ??? LITHOTRIPSY ??? XA ABLATION 05/19/2016 ??? XA CORONARY INTERVENTION 03/24/[address] Cleary Social History Tobacco Use ??? [...] ref. provider found PCP: VERNON DELGADO MD OPERATOR * Evaristo Allan MD - 02/22/2019 12:00 [...] a serum hemoglobin of 8.0 or greater. OPERATOR documented in this encounter Plan of Treatment Upcoming Encounters Date Type Department Care Team (Late st Contact Info) Description 04/25/2024 11:00 AM DYE OPERATOR Appointment [facility] [address] [place] [address] Ti Bonilla MD [address] [place] [phone] 05/23/2024 3:30 PM DYE OPERATOR Office Visit [facility] [address] [place] [phone] Jyoti Escobar MD [address] [place] [phone] documented as of this encounter Visit Diagnoses Diagnosis Coronary artery disease of [place] artery of [place] heart with stable angina pectoris ([facility])- Primary S/P coronary artery stent placement Postsurgical percutaneous transluminal coronary angioplasty status Preop cardiovascular exam Pre-operative cardiovascular examination Paroxysmal atrial fibrillation ([facility]) Atrial fibrillation Essential hypertension Unspecified essential hypertension Hyperlipidemia, unspecified hyperlipidemia type Obstructive sleep apnea Obstructive sleep apnea (adult) (pediatric) documented in this encounter Additional Health Concerns Infection Onset Date Last Indicated Resolved Time MRSA Comment:Negative MRSA 05/201903/11/2017 03/11/2017 10/03/2019 10:08 AM CDT documented as of this encounter Care Teams Videogame Tester Relationship Specialty Start Date End Date Vernon Delgado MD [address] [place] [phone] PCP - General FAMILY PRACTICE 10/27/15 12/02/21 Evaristo Allan MD [address] [place] [address] [place] Roll Scale Man CARDIOVASCULAR DISEASE 08/19/16 Raul Santana MD [address] [place] [address] CLINICAL CARDIAC ELECTROPHYSIOLOGY 06/16/17 Myah Handley NP [address] [place] [address] CARDIOVASCULAR DISEASE 06/16/17 07/10/19 Danny Blackwell MD [address] [place] [address] ORTHOPAEDIC SURGERY 05/01/19 documented as of this encounter
--- OUTSIDE RECORDS SUMMARY | 2024-04-23 05:20 | XMS_ITS | Encounter Summary ---
Author Organization [facility] Address [address] [place] [address]. [place], [place] [address] [place] [address] Care Team Providers Care Junior Estimator Name Role Phone Vernon Mercedes MD Primary Care Provider [phone] Evaristo Allan MD Unavailable UnavailRaul Suresh MD Unavailable Unavailabl Myah Gee NP Unavailable Unavailable Danny Blackwell MD Unavailable [phone] Reason for Visit * Reason Comments Pre-Op Exam RIGHT Total Knee Art hroplasty Encounter Details Date Type Department Care Team (Latest Contact Info) Description 05/04/2019 8:30 AM MANAGER PORT Office Visit [facility] [address] [address] Danny Blackwell MD [address] [place] [address] Pre-Op Exam (RIGHT Total Knee Arthroplasty) Social [...] 113.4 kg (250 lb) 05/04/2019 8:22 AM MANAGER PORT Height 177.8 cm (5' 10 ) 05/04/2019 8:22 AM MANAGER PORT Body Mass Index 35.87 05/04/2019 8:22 AM MANAGER PORT documented in this encounter Progress Notes * [...] ??? Essential hypertension ??? Paroxysmal atrial fibrillation ([facility]) ??? care home current use of anticoagulant therapy ??? Obstructive sleep apnea ??? Hyperlipidemia ??? Diabetes ([facility]) ??? Coronary artery disease of [place] artery of [place] heart with stable angina pectoris ([facility]) ??? 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 Cardiovascular stress test abnormal ??? Arthritis of knee ??? Derangement of medial meniscus, left ??? Encounter for follow-up examination after completed treatment for conditions other than malignant neoplasm ??? Heartburn ??? Knee pain ??? Mechanical complication of internal orthopedic device, implant or graft, initial encounter ([facility]) ??? Patella-femoral syndrome ??? Pes anserine bursitis ??? Recurrent ventral incisional hernia ??? Abdominal pain ??? Failure of total knee replacement, initial encounter ([facility]) ??? S/P coronary artery stent placement History: [...] CATHETERIZATION 01/04/2018 occluded prox RCA w/well developed dcci-rg-jntav collaterals lvef 55-60% ??? FRACTURE SURGERY ??? HERNIA REPAIR ??? KNEE ARTHROPLASTY ??? LITHOTRIPSY ??? XA ABLATION 05/19/2016 ??? XA CORONARY INTERVENTION 03/24/[address] Cleary Family History Family history unknown: [...] Failure of total knee replacement, initial encounter ([facility]) T84.018A 996.47 PROSTHETIC JOINT MECHANICAL FAILURE Z96.659 [...] 4 weeks (around 06/01/2019). DANNY BLACKWELL MD [facility] [place] documented in this encounter Plan of Treatment Upcoming Encounters Date Type Department Care Team (Late st Contact Info) Description 04/25/2024 11:00 AM MANAGER PORT Appointment [facility] [address] [place] [address] Ti Bonilla MD [address] [place] [phone] 05/23/2024 3:30 PM MANAGER PORT Office Visit [facility] [address] [place] [address] Jyoti Escobar MD [address] [place] [phone] documented as of this encounter Visit Diagnoses Diagnosis Failure of total knee replacement, initial encounter ([facility])- Primary documented in this encounter Additional Health Concerns Infection Onset Date Last Indicated Resolved Time MRSA Comment:Negative MRSA 05/201903/11/2017 03/11/2017 10/03/2019 10:08 AM CDT documented as of this encounter Care Teams Junior Estimator Relationship Specialty Start Date End Date Vernon Mercedes MD [address] [place] [address] PCP - General FAMILY PRACTICE 10/27/15 12/02/21 Evaristo Allan MD [address] [place] [address] [place] Manager Food CARDIOVASCULAR DISEASE 08/19/16 Raul Santana MD [address] [place] [phone] CLINICAL CARDIAC ELECTROPHYSIOLOGY 06/16/17 Myah Handley NP [address] [place] [address] CARDIOVASCULAR DISEASE 06/16/17 07/10/19 Danny Blackwell MD [address] [place] [address] ORTHOPAEDIC SURGERY 05/01/19 documented as of this encounter
--- OUTSIDE RECORDS SUMMARY | 2024-04-23 05:20 | XMS_ITS | Encounter Summary ---
Author Organization [facility] Address [address] [place] [address]. [place], [place] [address] [place] [address] Care Team Providers Care Nail Making Machine Setter Name Role Phone Vernon Mercedes MD Primary Care Provider [phone] Evaristo Allan MD Unavailable UnavailRaul Suresh MD Unavailable Unavailabl Danny Lopes MD Unavailable [phone] Encounter Details Date Type Department Care Team (Late st Contact Info) Description 08/22/2019 2:22 PM CDT - 08/22/2019 11:59 PM CDT Hospital Encounter [facility] [address] [place] [address] Vernon Mercedes MD [address] [place] [address] Discharge Disposition: Home or Self [...] 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 Not on [...] Contact Info) Description 04/25/2024 11:00 AM CALENDER ROLL PRESS OPERATOR Appointment [facility] [address] [place] [address] Ti Bonilla MD [address] [place] [phone] 05/23/2024 3:30 PM CALENDER ROLL PRESS OPERATOR Office Visit [facility] [address] [place] [address] Jyoti Escobar MD [address] [place] [phone] documented as of this encounter Procedures Procedure Name Priority Date/Time Associated Diagnosis Comments HEMOGLOBIN, GLYCOSYLATED Routine 08/22/2019 2:35 PM CDT Diabetes mellitus type 2, uncontrolled documented in this encounter Results * (ABNORMAL) HEMOGLOBIN, GLYCOSYLATED (08/22/2019 2:35 PM CDT) HGB A1C 8.5(H) <5.7 % 08/22/2019 2:51 PM CDT [facility] Comment: 5.7 TO 6.4% INCREASED RISK OF DIABETES > OR = 6.5% CONSISTENT WITH DIABETES PER ADA GUIDELINES ESTIMATED AVG GLUCOSE 197(H) 70 - 140 MG/DL 08/22/2019 2:51 PM CDT [facility] 08/22/2019 2:35 PM CDT Vernon Mercedes MD LABORATORY Final Result [facility] [address] [place], [place] [address] [phone] documented in this encounter Visit Diagnoses Diagnosis Diabetes mellitus type 2, uncontrolled Type II or unspecified type diabetes mellitus without mention of complication, uncontrolled documented in this encounter Additional Health Concerns Infection Onset Date Last Indicated Resolved Time MRSA Comment:Negative MRSA 05/201903/11/2017 03/11/2017 10/03/2019 10:08 AM CDT documented as of this encounter Care Teams Nail Making Machine Setter Relationship Specialty Start Date End Date Vernon Mercedes MD [address] [place] [address] PCP - General FAMILY PRACTICE 10/27/15 12/02/21 Evaristo Allan MD [facility] [place] [address] [place] Stretcher Drier Operator CARDIOVASCULAR DISEASE 08/19/16 Raul Santana [place] [facility] [place] [address] CLINICAL CARDIAC ELECTROPHYSIOLOGY 06/16/17 Danny Blackwell MD [address] [place] [address] ORTHOPAEDIC SURGERY 05/01/19 documented as of this encounter
--- OUTSIDE RECORDS SUMMARY | 2024-04-23 05:20 | XMS_ITS | Encounter Summary ---
Author Organization [facility] Address [address] [place] [address]. [place] [address] [place] [address] Care Team Providers Care Accounting Reconciliation Clerk Name Role Phone Vernon Mercedes MD Primary Care Provider [phone] Stanislaw Rhodes MD Unavailable Unavailab Elza Ying MD Unavailable UnavailEve Suresh MD Unavailable UnavailMyah Elena NP Unavailable Unavailable Deven Cleary MD Unavailable Unavailable Encounter Details Date Type Department Care Team (Late st Contact Info) Description 10/17/2018 Orders Only [facility] [address] [place] [address] Eve Carrera MD Social History [...] (Late Contact Info) Description 04/25/2024 11:00 AM SCIENTIST/ENGINEER Appointment [facility] [address] [place] [address] Ti Bonilla MD [address] [place] [phone] 05/23/2024 3:30 PM SCIENTIST/ENGINEER Office Visit [facility] [place] [address] Jyoti Escobar MD [address] [place] [address] documented as of this encounter Procedures Procedure Name Priority Date/Time Associated Diagnosis Comments ELECTROCARDIOGRAM (NON MIDMARK ACQUIRED) Routine 10/17/2018 9:20 AM CDT Paroxysmal atrial fibrillation (CMS/HCC HHS/HCC) long-term current use of anticoagulant therapy documented in this encounter Results * ELECTROCARDIOGRAM (10/17/2018 9:20 AM CDT) 10/17/2018 9:20 AM CDT Narrative [facility] - 10/17/2018 10:21 AM CDT ? [facility] ?[address], [place] ??[address] ? Test Date: ?2018-10-17 Pat Name: ? ELZA MCKEON ? Department: ? Room: ? Gender: ? Male ? Surg Tech: ?? sk : ?1960 ? Requested By: EVE CARRERA Order Number: [id number] ?Reading : ?? Eve Carrera ? Measurements Intervals ?[place] ? Rate: ? 75 ? P: ?43 NM: ? 107 ?QRS: ?37 QRSD: ? 110 ?T: ?30 QT: ? 402 ? QTc: ?451 ? Interpretive Statements SINUS RHYTHM WITH SHORT NM INTERVAL WITH OCCASIONAL SUPRAVENTRICULAR PREMATURE COMPLEXES INCOMPLETE RIGHT BUNDLE BRANCH BLOCK Procedure Note Eve Carrera MD - 10/17/2018 [facility] [place][note 2] [place] [address] Test Date: 2018-10-17 Pat Name: [facility] Department: Room: Gender: Male Surg Tech: main : 1960 Requested By: EVE CARRERA Order Number: [id number] Reading MD: Eve Carrear Measurements Intervals [place] Rate: 75 P: 43 NM: 107 QRS: 37 QRSD: 110 T: 30 QT: 402 QTc: 451 Interpretive Statements SINUS RHYTHM WITH SHORT NM INTERVAL WITH OCCASIONAL SUPRAVENTRICULAR PREMATURE COMPLEXES INCOMPLETE RIGHT BUNDLE BRANCH BLOCK Eve Carrera MD PROCEDURES-ORDERABLE NO LENO RGE Final Result [facility] [address] [place] [address] documented in this encounter Visit Diagnoses Diagnosis Paroxysmal atrial fibrillation (CMS/HCC HHS/HCC)- Primary Atrial fibrillation long-term current use of anticoagulant therapy documented in this encounter Additional Health Concerns Infection Onset Date Last Indicated Resolved Time MRSA Comment:Negative MRSA 05/201903/11/2017 03/11/2017 10/03/2019 10:08 AM CDT documented as of this encounter Care Teams Accounting Reconciliation Clerk Relationship Specialty Start Date End [place] [address] PCP - General FAMILY PRACTICE 10/27/15 12/02/21 [place] [address] [place] [address] CARDIOVASCULAR DISEASE 10/27/15 10/24/18 [place] [address] [address] [place] Document Photographer CARDIOVASCULAR DISEASE 08/19/16 [place] [address] [address] CLINICAL CARDIAC ELECTROPHYSIOLOGY 06/16/17 [place] [address] [place] [address] CARDIOVASCULAR DISEASE 06/16/17 07/10/19 Dev[place] [address] [address] [place] Planer Operator INTERVENTIONAL CARDIOLOGY 03/21/18 10/24/18 documented as of this encounter
--- OUTSIDE RECORDS SUMMARY | 2024-04-23 05:20 | XMS_ITS | Encounter Summary ---
Author Organization [facility] Address [address] [place] [address]. 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 [address] [place] [address] Ti Bonilla MD [address] [place] [phone] 05/23/2024 3:30 PM NET WPF DEVELOPER Office Visit [facility] [address] [address] Jyoti Escobar MD [address] [place] [address] documented as of this encounter Visit Diagnoses Not on filedocumented in this encounter Additional Health Concerns Infection Onset Date Last Indicated Resolved Time MRSA Comment:Negative MRSA 05/201903/11/2017 03/11/2017 10/03/2019 10:08 AM CDT documented as of this encounter Care Teams Professor Of Voice Relationship Specialty Start Date End Date Vernon Mercedes MD [address] [place] [address] PCP - General FAMILY PRACTICE 10/27/15 12/02/21 Evaristo Allan MD [facility] [place] [address] [place] Rice Drier Operator CARDIOVASCULAR DISEASE 08/19/16 Raul Santana MD [facility] [place] [address] CLINICAL CARDIAC ELECTROPHYSIOLOGY 06/16/17 Myah Handley FUNDING SPECIALIST [facility] [place] [address] CARDIOVASCULAR DISEASE 06/16/17 07/10/19 Danny Blackwell MD [address] [place] [address] ORTHOPAEDIC SURGERY 05/01/19 documented as of this encounter
--- OUTSIDE RECORDS SUMMARY | 2024-04-23 05:20 | XMS_ITS | Encounter Summary ---
Author Organization [facility] Address [address] [place] [address]. 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 [address] [place] [address] Ti Bonilla MD [address] [place] [phone] 05/23/2024 3:30 PM COMPOUND COATING MACHINE OFFBEARER Office Visit [facility] [address] [address] Jyoti Escobar MD [address] [place] [address] documented as of this encounter Visit Diagnoses Not on filedocumented in this encounter Additional Health Concerns Infection Onset Date Last Indicated Resolved Time MRSA Comment:Negative MRSA 05/201903/11/2017 03/11/2017 10/03/2019 10:08 AM CDT documented as of this encounter Care Teams Getter Operator Relationship Specialty Start Date End Date Vernon Mercedes MD [address] [place] [address] PCP - General FAMILY PRACTICE 10/27/15 12/02/21 Evaristo Allan MD [facility] [place] [address] [place] Car Record Clerk CARDIOVASCULAR DISEASE 08/19/16 Raul Santana MD [facility] [place] [address] CLINICAL CARDIAC ELECTROPHYSIOLOGY 06/16/17 Myah Handley HEALTHCARE CORPORATE ACCOUNT DIRECTOR [facility] [place] [address] CARDIOVASCULAR DISEASE 06/16/17 07/10/19 Danny Blackwell MD [address] [place] [address] ORTHOPAEDIC SURGERY 05/01/19 documented as of this encounter
--- OUTSIDE RECORDS SUMMARY | 2024-04-23 05:20 | XMS_ITS | Encounter Summary ---
Author Organization [facility] Address [address] [place] [address]. [place], [place] [address] [place] [address] Care Team Providers Care Outside Barrel Lathe Operator Name Role Phone Vernon Mercedes MD Primary Care Provider [phone] Evaristo Allan MD Unavailable Unavailabl Raul Duran MD Unavailable Unavailabl e Danny Blackwell MD Unavailable [phone] Reason for Visit * Reason Comments Knee Injury RIGHT DOI:09/07/2019 Hip Injury LEFT 09/16/2019 Encounter Details Date Type Department Care Team (Latest Contact Info) Description 09/21/2019 11:15 AM CDT Office Visit [facility] [address] [address] Danny Blackwell MD [address] [place] [address] Knee Injury (RIGHT DOI:09/07/2019); Hip Injury (LEFT [...] 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 Paroxysmal atrial fibrillation (CMS/HCC) ??? prison current use of anticoagulant therapy ??? Obstructive sleep apnea ??? Hyperlipidemia ??? Diabetes (CMS/HCC) ??? Coronary artery disease of [place] artery of [place] heart with stable angina pectoris (CMS/HCC) ??? Chronic total occlusion of [place] coronary artery ??? Cardiovascular stress test [...] CATHETERIZATION 01/04/2018 occluded prox RCA w/well developed kcnt-oh-njwrc collaterals lvef 55-60% ??? FRACTURE SURGERY ??? HERNIA REPAIR ??? KNEE ARTHROPLASTY ??? LITHOTRIPSY ??? XA ABLATION 05/19/2016 ??? XA CORONARY INTERVENTION 03/24/[address] Cleary Family History Problem Relation Name [...] Not on file Occupational History ??? 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 Z79.01 [...] st Contact Info) Description 04/25/2024 11:00 AM PICKER MACHINE OPERATOR Appointment [facility] [address] [place] [address] [place] [address] Ti Bonilla MD [address] [place] [phone] 05/23/2024 3:30 PM PICKER MACHINE OPERATOR Office Visit [facility] [address] [place] [address] Jyoti Escobar MD [address] [place] [address] documented as of this encounter Results * [...] Matteo Buenrostro MD, 09/21/2019 12:37 PM Danny Blackwlel MD GENERAL IMAGING Final Result * XR [...] thigh Prosthetic joint implant failure, subsequent encounter prison current use of anticoagulant therapy Trochanteric bursitis [...] documented as of this encounter Care Teams Outside Barrel Lathe Operator Relationship Specialty Start Date End Date Vernon Mercedes MD [address] [place] [address] PCP - General FAMILY PRACTICE 10/27/15 12/02/21 Evaristo Allan MD [address] [place] [address] [place] Investment Director CARDIOVASCULAR DISEASE 08/19/16 Raul Santana MD [address] [place] [address] CLINICAL CARDIAC ELECTROPHYSIOLOGY 06/16/17 Danny Blackwell MD [address] [facility] [place] [address] ORTHOPAEDIC SURGERY 05/01/19 documented as of this encounter
--- OUTSIDE RECORDS SUMMARY | 2024-04-23 05:20 | XMS_ITS | Encounter Summary ---
Author Organization [facility] Address [address] [place] [address]. [place], [place] [address] [place] [address] Care Team Providers Care Cellar Packer Name Role Phone Ton Mercedes MD Primary Care Provider [phone] Stanislaw Rhodes MD Unavailable Unavailab Evaristo Ying MD Unavailable UnavailRaul Suresh MD Unavailable UnavailMyah Elena NP Unavailable Unavailable Deven Cleary MD Unavailable Unavailable Reason for Referral * Imaging (Routine) - Closed Specialty Diagnoses / Procedures Referred By Contac t Referred To Contact CARDIOVASCULAR DISEASE Diagnoses Paroxysmal atrial fibrillation ([facility]) Obstructive sleep apnea Essential hypertension Mixed hyperlipidemia Coronary artery disease of [place] artery of [place] heart with stable angina pectoris ([facility]) Procedures EVENT MONITOR 30 DAYS Evaristo Allan MD [address] [place] [address] [facility] [address] Phone: tel:[phone] fax:[phone] Referral ID Status Reason Start Date Expiration Date Visits Re quested Visits Authorized [id number] Closed 05/05/2018 06/05/2019 1 1 AND PAPER TESTER Reason for Visit * Reason Comments Follow Up Coronary Artery Disease Encounter Details Date Type Department Care Team (Latest Contact Info) Description 05/04/2018 12:30 PM PULP AND PAPER TESTER Office Visit [facility] [address] [place] [address] Evaristo Allan MD Follow Up; Coronary Artery [...] 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 Not on file Not on file documented as of this encounter Last Filed Vital Signs Vital Sign Reading Time Taken Comments Blood Pressure 108/72 05/05/2018 11:26 AM PULP AND PAPER TESTER Pulse 88 05/05/2018 11:26 AM PULP AND PAPER TESTER Temperature - - Respiratory Rate 18 05/05/2018 11:26 AM PULP AND PAPER TESTER Oxygen Saturation 96% 05/05/2018 11:26 AM PULP AND PAPER TESTER Inhaled Oxygen Concentration - - Weight 117 kg (258 lb) 05/05/2018 11:26 AM PULP AND PAPER TESTER Height 180.3 cm (5' 11 ) 05/05/2018 11:26 AM PULP AND PAPER TESTER Body Mass Index 35.98 05/05/2018 11:26 AM PULP AND PAPER TESTER documented in this encounter Patient Instructions * Patient Instructions* Marcelle Madden RN - 05/04/2018 12:30 PM PULP AND PAPER TESTER 1. Event monitor 2. Continue Brillinta & Pradaxa 3. Needs appt with Dr Santana - recurrent AF 4. Check recent lab - mag & potassium AND PAPER TESTER documented in this encounter Progress Notes * [...] CATHETERIZATION 01/04/2018 occluded prox RCA w/well developed gamn-vz-jrkns collaterals lvef 55-60% ??? FRACTURE SURGERY ??? [...] fibrillation (CMS/HCC) 2. Obstructive sleep apnea 3. 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 Essential hypertension 5. Mixed hyperlipidemia 6. Diabetes (CMS/HCC) 7. Coronary artery disease of [place] artery of [place] heart with stable angina pectoris (CMS/HCC) 8. Cardiovascular stress test abnormal Referring Provider: No ref. provider found PCP: TON MERCEDES MD AND PAPER TESTER * Evaristo Allan MD - 05/04/2018 12:00 AM CST HISTORY OF PRESENT ILLNESS: Mr. Zelaya is seen in the [facility] today for a scheduled followup [...] should he have any questions or problems. AND PAPER TESTER documented in this encounter Plan of Treatment Upcoming Encounters Date Type Department Care Team (Late st Contact Info) Description 04/25/2024 11:00 AM PULP AND PAPER TESTER Appointment 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/HCC)- Primary Paroxysmal atrial fibrillation (CMS/HCC HHS/HCC) Atrial fibrillation Essential hypertension Unspecified essential hypertension Mixed hyperlipidemia Obstructive sleep apnea Obstructive sleep apnea (adult) (pediatric) documented in this encounter Additional Health Concerns Infection Onset Date Last Indicated Resolved Time MRSA Comment:Negative MRSA 05/201903/11/2017 03/11/2017 10/03/2019 10:08 AM CDT documented as of this encounter Care Teams Cellar Packer Relationship Specialty Start Date End Date Ton Mercedes MD [address] [place] [address] PCP - General FAMILY PRACTICE 10/27/15 12/02/21 [place] [address] CARDIOVASCULAR DISEASE 10/27/15 10/24/18 Evaristo Allan MD [address] [place] [address] [facility] CARDIOVASCULAR DISEASE 08/19/16 [place] [address] CLINICAL CARDIAC ELECTROPHYSIOLOGY 06/16/17 Myah Handley, [place] [address] CARDIOVASCULAR DISEASE 06/16/17 07/10/19 [place] [address] Certified Alcohol And Drug Counselor INTERVENTIONAL CARDIOLOGY 03/21/18 10/24/18 documented as of this encounter
--- OUTSIDE RECORDS SUMMARY | 2024-04-23 05:20 | XMS_ITS | Encounter Summary ---
Author Organization [facility] Address [address] [place] [address]. [place], [place] [address] [place] [address] Care Team Providers Care Test Engineer Name Role Phone Vernon Mercedes MD Primary Care Provider [phone] Evaristo Allan MD Unavailable Unavailabl Raul Duran MD Unavailable Unavailabl Danny Lopes MD Unavailable Reason for Visit * Reason Comments Lab (SCAN) Encounter Details Date Type Department Care Team (Late Contact Info) Description 08/22/2019 Scan [facility] [address] [...] (Late Contact Info) Description 04/25/2024 11:00 AM DOCK BOSS Appointment [facility] [address] [place] [address] Ti Bonilla MD [address] [place] [address] 05/23/2024 3:30 PM DOCK BOSS [facility] [address] [place] [address] Jyoti Escobar MD [address] [place] [address] documented as of this encounter Procedures Procedure Name Priority Date/Time Associated Diagnosis Comments OUTSIDE LAB (SCAN ORDER) Routine 08/22/2019 documented in this encounter Results * OUTSIDE LAB (08/22/2019) 08/22/2019 us Documents Scanned SCANNING Final Result Performing Organization Address City/State/[facility] Co de Phone Number [facility] ON[facility] documented in this encounter Visit Diagnoses Not on filedocumented in this encounter Additional Health Concerns Infection Onset Date Last Indicated Resolved Time MRSA Comment:Negative MRSA 05/201903/11/2017 03/11/2017 10/03/2019 10:08 AM CDT documented as of this encounter Care Teams Test Engineer Relationship Specialty Start Date End Date Vernon Mercedes MD [address] [place] [address] PCP - General FAMILY PRACTICE 10/27/15 12/02/21 Evaristo Allan MD [address] [place] [address] Martin Secret Code Expert CARDIOVASCULAR DISEASE 08/19/16 Raul Santana MD [address] [place] [address] CLINICAL CARDIAC ELECTROPHYSIOLOGY 06/16/17 Danny Blackwell MD [address] [place] [address] ORTHOPAEDIC SURGERY 05/01/19 documented as of this encounter
--- OUTSIDE RECORDS SUMMARY | 2024-04-23 05:20 | XMS_ITS | Encounter Summary ---
Author Organization [facility] Address [address] [place] [address]. [place], [place] [address] [place] [address] Care Team Providers Care Cleaners Name Role Phone Vernon Mercedes MD Primary Care Provider [phone] Evaristo Allan MD Unavailable UnavailRaul Suresh MD Unavailable Unavailabl Myah Gee NP Unavailable Unavailable Reason for Visit * Reason Comments Knee Pain RIGHT Encounter Details Date Type Department Care Team (Late st Contact Info) Description 04/25/2019 4:45 PM CNC LASER OPERATOR Office Visit [facility] [address], [place] [address] Danny Blackwell MD [address] [place] [address] Knee Pain (RIGHT) Social History Tobacco Use [...] 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 Paroxysmal atrial fibrillation (CMS/HCC) ??? 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 Obstructive sleep apnea ??? Hyperlipidemia ??? Diabetes (CMS/HCC) ??? Coronary artery disease of nul[place] artery of [place] heart with stable angina pectoris (CMS/HCC) ??? Chronic total occlusion of nulato coronary artery ??? Cardiovascular stress test abnormal ??? Arthritis of knee ??? Derangement of medial meniscus, left ??? Encounter for follow-up examination after completed treatment for conditions other than malignant neoplasm ??? Heartburn ??? Knee pain ??? Mechanical complication of internal orthopedic device, implant or graft, initial encounter ([facility]) ??? Patella-femoral syndrome ??? Pes anserine [...] CATHETERIZATION 01/04/2018 occluded prox RCA w/well developed pyrn-pa-uzwto collaterals lvef 55-60% ??? FRACTURE SURGERY ??? HERNIA REPAIR ??? KNEE ARTHROPLASTY ??? LITHOTRIPSY ??? XA ABLATION 05/19/2016 ??? XA CORONARY INTERVENTION 03/24/[address] Cleary Family History Family history unknown: [...] Not on file Occupational History ??? 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 Financial resource [...] file Gets together: Not on file Attends mandaeism service: Not on file Active member of [...] total knee replacement, initial encounter ([facility]) T84.018A 996.47 PROSTHETIC JOINT MECHANICAL FAILURE [...] or fail to improve. DANNY BLACKWELL MD LASER OPERATOR LASER OPERATOR documented in this encounter Plan of Treatment Upcoming Encounters Date Type Department Care Team (Late st Contact Info) Description 04/25/2024 11:00 AM CNC LASER OPERATOR Appointment [facility] [address] [place] [address] Ti Bonilla MD [address] [place] [phone] 05/23/2024 3:30 PM CNC LASER OPERATOR Office Visit [facility] [address] [place] [phone] Jyoti Escobar MD [address] [place] [address] documented as of this encounter Visit Diagnoses Diagnosis Failure of total knee replacement, initial encounter ([facility])- Primary documented in this encounter Additional Health Concerns Infection Onset Date Last Indicated Resolved Time MRSA Comment:Negative MRSA 05/201903/11/2017 03/11/2017 10/03/2019 10:08 AM CDT documented as of this encounter Care Teams Cleaners Relationship Specialty Start Date End Date Vernon Mercedes MD [address] [place] [address] PCP - General FAMILY PRACTICE 10/27/15 12/02/21 [place] [address] [place] Electrical Engineer Mep CARDIOVASCULAR DISEASE 08/19/16 [place] [address] CLINICAL CARDIAC ELECTROPHYSIOLOGY 06/16/17 [place] [address] CARDIOVASCULAR DISEASE 06/16/17 07/10/19 documented as of this encounter
--- OUTSIDE RECORDS SUMMARY | 2024-04-23 05:20 | XMS_ITS | Encounter Summary ---
Author Organization [facility] Address [address] [place] [address]. [place], [place] [address] [place] [address] Care Team Providers Care Industrial Management Teacher Name Role Phone Vernon Delgado MD Primary Care Provider [phone] Stanislaw Rhodes MD Unavailable Unavailab Evaristo Ying MD Unavailable UnavailRaul Suresh MD Unavailable UnavailMyah Elena NP Unavailable Unavailable Deven Cleary MD Unavailable Unavailable Reason for Visit * Reason Comments Follow Up Palpitations Encounter Details Date Type Department Care Team (Latest Contact Info) Description 10/17/2018 9:30 AM CDT Office Visit [facility] [address] [place] [phone] Myah Handley NP Follow Up (Palpitations) Social [...] history of atrial fibrillation, coronary arterydisease s/p CHIEF OPERATIONS OFFICER PCI. He underwent pulmonary vein isolation on May 19, 2016. He presents today for follow up due to palpitations. In April, he reported palpitations when seeing his primary wooden frame builder. A 21 day monitor was obtained. This [...] on brilinta and aspirin as well post CHIEF OPERATIONS OFFICER PCI in March 2018. EKG today reveals normal sinus rhythm. A single PAC is recorded. Recommendations and Plan: 1. Palpitations: I do not suspect his short episodes of palpitations are due to atrial fibrillation. His 21 day monitor from April was reassuring. Symptoms during his monitor revealed sinus rhythm,and sinus rhythm with rare ectopy. I recommend we continue his current dose of metoprolol ifudzeycu22 mg twice daily. 2. Stroke risk: His [...] CATHETERIZATION 01/04/2018 occluded prox RCA w/well developed lqgz-ee-axuea collaterals lvef 55-60% ??? FRACTURE SURGERY ??? HERNIA REPAIR ??? KNEE ARTHROPLASTY ??? XA ABLATION 05/19/2016 ??? XA CORONARY INTERVENTION 03/24/[address] Cleary Social History Tobacco Use ??? [...] of atrial fibrillation 4. Current use of buttermaker anticoagulation 5. Chest pain, unspecified type PINNACLE Documentation Completed: Atrial Fibrillation Referring Provider: Vernon Delgado PCP: VERNON DELGADO MD documented in this encounter Plan of Treatment Upcoming Encounters Date Type Department Care Team (Late st Contact Info) Description 04/25/2024 11:00 AM BRAILLE PROOFREADER Appointment [facility] [place] [address] Ti Bonilla MD [address] [place] [phone] 05/23/2024 3:30 PM BRAILLE PROOFREADER Office Visit [facility] [address] [place] [address] Jyoti Escobar MD [address] [place] [address] documented as of this encounter Visit Diagnoses Diagnosis Premature atrial contractions- Primary Supraventricular premature beats Paroxysmal atrial fibrillation ([facility]) Atrial fibrillation S/P ablation of atrial fibrillation Other postprocedural status Current use of prison anticoagulation Encounter for long-term (current) use of anticoagulants Chest pain, unspecified type documented in this encounter Additional Health Concerns Infection Onset Date Last Indicated Resolved Time MRSA Comment:Negative MRSA 05/201903/11/2017 03/11/2017 10/03/2019 10:08 AM CDT documented as of this encounter Care Teams Industrial Management Teacher Relationship Specialty Start Date End Date Vernon Delgado MD [address] [place] [address] PCP - General FAMILY PRACTICE 10/27/15 12/02/21 Stanislaw Rhodes MD [address] [place] [address] CARDIOVASCULAR DISEASE 10/27/15 10/24/18 Evaristo Allan MD [address] [place] [address] [place] Director Nicu CARDIOVASCULAR DISEASE 08/19/16 Raul Santana MD [address] [place] [address] CLINICAL CARDIAC ELECTROPHYSIOLOGY 06/16/17 [place] [place] [address] CARDIOVASCULAR DISEASE 06/16/17 07/10/19 Dev[place] [address] [address] Lime Vat Tender INTERVENTIONAL CARDIOLOGY 03/21/18 10/24/18 documented as of this encounter
--- OUTSIDE RECORDS SUMMARY | 2024-04-23 05:20 | XMS_ITS | Encounter Summary ---
Author Organization [facility] Address [address] [place] [address]. [place], [place] [address] [place] [address] Care Team Providers Care Anesthesiologist/Physician Name Role Phone Vernon Mercedes MD Primary Care Provider [phone] Evaristo Allan MD Unavailable Unavailabl Raul Duran MD Unavailable Unavailabl e Danny Blackwell MD Unavailable [phone] Encounter Details Date Type Department Care [...] st Contact Info) Description 04/25/2024 11:00 AM EAR NOSE THROAT PHYSICIAN Appointment [facility] [address] [facility] [place] [address] Ti Bonilla MD [address] [place] [phone] 05/23/2024 3:30 PM EAR NOSE THROAT PHYSICIAN [facility] [address] [place] [address] Jyoti Escobar MD [address] [place] [address] documented as of this encounter Visit Diagnoses Not on filedocumented in this encounter Additional Health Concerns Infection Onset Date Last Indicated Resolved Time MRSA Comment:Negative MRSA 05/201903/11/2017 03/11/2017 10/03/2019 10:08 AM CDT documented as of this encounter Care Teams Anesthesiologist/Physician Relationship Specialty Start Date End Date Vernon Mercedes MD [address] [place] [address] PCP - General FAMILY PRACTICE 10/27/15 12/02/21 Evaristo Allan MD [address] [place] [address] [place] Director Of Epidemiology CARDIOVASCULAR DISEASE 08/19/16 Raul Santana MD [address] [place] [address] CLINICAL CARDIAC ELECTROPHYSIOLOGY 06/16/17 Danny Blackwell MD [address] [place] [address] ORTHOPAEDIC SURGERY 05/01/19 documented as of this encounter
--- OUTSIDE RECORDS SUMMARY | 2024-04-23 05:20 | XMS_ITS | Encounter Summary ---
Author Organization [facility] Address [address] [place] [address]. [place], [place] [address] [place] [address] Care Team Providers Care Ophthalmic Dispenser Name Role Phone Vernon Mercedes MD Primary Care Provider [phone] Stanislaw Rhodes MD Unavailable Unavailab Evaristo Ying MD Unavailable UnavailRaul Suresh MD Unavailable UnavailMyah Elena NP Unavailable Unavailable Deven Cleary MD Unavailable Unavailable Reason for Visit * Reason Onset Date Comments Reschedule 10/10/2018 N/S appt w/COMMUNICATIONS BILLING ANALYST Encounter Details Date Type Department Care Team (Late st Contact Info) Description 10/10/2018 Telephone [facility] [address] [place] [address] Raul Santana MD Reschedule (N/S appt w/COMMUNICATIONS BILLING ANALYST) Social History Tobacco Use Types Packs/Day Years [...] st Contact Info) Description 04/25/2024 11:00 AM CLOTHING SALES ASSISTANT [facility]ointment [facility] [address] [place] [address] Ti Bonilla MD [address] [place] [phone] 05/23/2024 3:30 PM CLOTHING SALES ASSISTANT Office Visit [facility] [address] [place] [phone] Jyoti Escobar MD [address] [place] [phone] documented as of this encounter Visit Diagnoses Not on filedocumented in this encounter Additional Health Concerns Infection Onset Date Last Indicated Resolved Time MRSA Comment:Negative MRSA 05/201903/11/2017 03/11/2017 10/03/2019 10:08 AM CDT documented as of this encounter Care Teams Ophthalmic Dispenser Relationship Specialty Start Date End Date Vernon Mercedes MD [address] [place] [address] PCP - General FAMILY PRACTICE 10/27/15 12/02/21 [place] [address] CARDIOVASCULAR DISEASE 10/27/15 10/24/18 [place] [address] [place] Ingot Supervisor CARDIOVASCULAR DISEASE 08/19/16 Raul Santana MD [address] [place] [address] CLINICAL CARDIAC ELECTROPHYSIOLOGY 06/16/17 Myah Handley NP [address] [place] [address] [place] [address] CARDIOVASCULAR DISEASE 06/16/17 07/10/19 Deven Cleary MD [address] [place] [address] Hem Marker INTERVENTIONAL CARDIOLOGY 03/21/18 10/24/18 documented as of this encounter
--- OUTSIDE RECORDS SUMMARY | 2024-04-23 05:20 | XMS_ITS | Encounter Summary ---
Author Organization [facility] Address [address] [place] [address]. [place], [place] [address] [place] [address] Care Team Providers Care Internet Designer Name Role Phone Vernon Mercedes MD Primary Care Provider [phone] Evaristo Allan MD Unavailable Unavailabl Raul Duran MD Unavailable Unavailabl Myah Gee NP Unavailable Unavailable Danny Blackwell MD Unavailable [phone] Gayle Arce APRN, LIGHT BULB TESTER-C Unavailable [phone] Ti Bonilla MD Primary Care Provider [phone] Mendel Shah DPM Unavailable [phone] Jyoti Escobar MD Unavailable [phone] Encounter Details Date Type Department Care Team (Late Contact Info) Description 11/09/2018 Abstract [facility] [address] [place] [phone] Evaristo Allan MD Social History Tobacco Use [...] (Late Contact Info) Description 04/25/2024 11:00 AM EXPERIENCED TRUCK DRIVER Appointment [facility] [address] [place] [address] [place] [address] Ti Bonilla MD [address] [place] [phone] 05/23/2024 3:30 PM EXPERIENCED TRUCK DRIVER Office Visit [facility] [address] [place] [address] [place] [phone] Jyoti Escobar MD [address] [place] [address]241 documented as of this encounter Procedures Procedure Name Priority Date/Time Associated Diagnosis Comments PROTHROMBIN TIME, VENOUS Routine 11/09/2018 Paroxysmal atrial fibrillation ([facility]) Coronary artery disease of [place] artery of [place] heart with stable angina pectoris Chest pain BASIC METABOLIC PANEL Routine 11/09/2018 Paroxysmal atrial fibrillation ([facility]) Coronary artery disease of [place] artery of [place] heart with stable angina pectoris Chest pain CBC W/DIFF AUTOMATED Routine 11/09/2018 Paroxysmal atrial fibrillation ([facility]) Coronary artery disease of [place] artery of [place] heart with stable angina pectoris Chest pain MAGNESIUM Routine 11/09/2018 Paroxysmal atrial fibrillation ([facility]) Coronary artery disease of [place] artery of [place] heart with stable angina pectoris Chest pain [...] Visit Diagnoses Diagnosis Paroxysmal atrial fibrillation ([facility]) Atrial fibrillation Coronary artery disease of keween[place] artery of [place] heart with stable angina pectoris ([facility]) Chest pain Chest pain, unspecified documented in this encounter Additional Health Concerns Infection Onset Date Last Indicated Resolved Time MRSA Comment:Negative MRSA 05/201903/11/2017 03/11/2017 10/03/2019 10:08 AM CDT COVID-19 Rule Out 10/12/2019 10/12/2019 10/13/2019 9:43 PM CDT COVID-19 Rule Out 04/16/2021 04/16/2021 04/16/2021 12:50 PM EXPERIENCED TRUCK DRIVER COVID-19 Confirmed 04/16/2021 04/16/2021 12:32 AM EXPERIENCED TRUCK DRIVER COVID-19 Rule Out 05/23/2021 05/23/2021 05/25/2021 3:02 PM EXPERIENCED TRUCK DRIVER COVID-19 Rule Out 05/25/2021 05/25/2021 05/26/2021 3:50 AM EXPERIENCED TRUCK DRIVER COVID-19 Rule Out 08/31/2021 08/31/2021 09/01/2021 8:03 PM CDT COVID-19 Rule Out 11/14/2021 11/14/2021 11/14/2021 6:17 PM CDT documented as of this encounter Care Teams Internet Designer Relationship Specialty Start Date End Date Vernon Mrecedes MD [address] [place] [address] PCP - General FAMILY PRACTICE 10/27/15 12/02/21 Ti Bonilla MD [address] [place] [phone] PCP - General FAMILY PRACTICE 12/03/21 Evaristo Allan MD [facility] [place] [address] [place] Supervisor Order Takers CARDIOVASCULAR DISEASE 08/19/16 Raul Santana MD [address] [place], [place] [address] [address] CLINICAL CARDIAC ELECTROPHYSIOLOGY 06/16/17 Myah Handley NP [address] [place], [place] [address] [address] CARDIOVASCULAR DISEASE 06/16/17 07/10/19 Danny Blackwell MD [address] [place] [address] ORTHOPAEDIC SURGERY 05/01/19 Gayle Arce, RETAIL BAKERY MANAGER, LIGHT BULB TESTER-C [address] [place] [address] 4P57 [place] [phone] NURSE PRACTITIONER 03/03/20 Mendel Shah DPM [address] [place] [address] Consulting Physician PODIATRY/SURGERY 06/27/23 06/26/24 Jyoti Escobar MD [address] [place] [address] INTERVENTIONAL CARDIOLOGY 12/27/23 documented as of this encounter
--- OUTSIDE RECORDS SUMMARY | 2024-04-23 05:20 | XMS_ITS | Encounter Summary ---
Author Organization [facility] Address [address] [place] [address]. [place], [place] [address] [place] [address] Care Team Providers Care Preform Machine Operator Name Role Phone Vernon Mercedes MD Primary Care Provider [phone] Evaristo Allan MD Unavailable UnavailRaul Suresh MD Unavailable Unavailabl Myah Gee NP Unavailable Unavailable Encounter Details Date Type Department Care Team (Late st Contact Info) Description 04/24/2019 Orders Only [facility] [address] [place] [address], [facility] [address] [place] [address] Danny Blackwell MD [address] [place] [address] Social History Tobacco Use Types Packs/Day [...] 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 Not on file documented as of this encounter Plan of Treatment Upcoming Encounters Date Type Department Care Team (Late Contact Info) Description 04/25/2024 11:00 AM SENIOR ESCROW OFFICER Appointment [facility] [address] [place] [address] Ti Bonilla MD [address] [place] [phone] 05/23/2024 3:30 PM SENIOR ESCROW OFFICER Office Visit [facility] [place] [address] Jyoti Escobar MD [address] [place] [address] documented as of this encounter Results * XR KNEE STAND AP VANITA ONLY (04/25/2019 4:24 PM SENIOR ESCROW OFFICER) Anatomical Region Laterality Modality Knee Radiographic Shannan ging 04/26/2019 4:59 PM SENIOR ESCROW OFFICER Impressions 04/26/2019 5:04 PM SENIOR ESCROW OFFICER IMPRESSION: Stable bilateral knee arthroplasty hardware. Additional stable findings. Interpreted By: Chari Grewal MD, 04/26/2019 4:59 PM Narrative 04/26/2019 5:04 PM SENIOR ESCROW OFFICER EXAMINATION: ??BILATERAL STANDING KNEES AND DEDICATED RIGHT [...] XR KNEE RT 2V (04/25/2019 4:24 PM SENIOR ESCROW OFFICER) Anatomical Region Laterality Modality Knee Radiographic Shannan ging 04/26/2019 4:59 PM SENIOR ESCROW OFFICER Impressions 04/26/2019 5:04 PM SENIOR ESCROW OFFICER IMPRESSION: Stable bilateral knee arthroplasty hardware. Additional stable findings. Interpreted By: Chari Grewal MD, 04/26/2019 4:59 PM Narrative 04/26/2019 5:04 PM SENIOR ESCROW OFFICER EXAMINATION: ??BILATERAL STANDING KNEES AND DEDICATED RIGHT [...] documented as of this encounter Care Teams Preform Machine Operator Relationship Specialty Start Date End Date Vernon [place] [address] [place] [address] PCP - General FAMILY PRACTICE 10/27/15 12/02/21 Evar[place] [address] [place] [address] [place] First Crusher CARDIOVASCULAR DISEASE 08/19/16 Raul [place] [address] [place] [phone] CLINICAL CARDIAC ELECTROPHYSIOLOGY 06/16/17 [place] [address] [place] [address] CARDIOVASCULAR DISEASE 06/16/17 07/10/19 documented as of this encounter
--- OUTSIDE RECORDS SUMMARY | 2024-04-23 05:20 | XMS_ITS | Encounter Summary ---
Author Organization [facility] Address [address] [place] [address]. 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 [address] [facility] [place] [place] [address] Ti Bonilla MD [address] [place] [phone] 05/23/2024 3:30 PM DISEASE CASE MANAGER RN [facility] [address] [place] [address] Jyoti Escobar MD [address] [place] [address] documented as of this encounter Visit Diagnoses Not on filedocumented in this encounter Additional Health Concerns Infection Onset Date Last Indicated Resolved Time MRSA Comment:Negative MRSA 05/201903/11/2017 03/11/2017 10/03/2019 10:08 AM CDT documented as of this encounter Care Teams Project Developer Relationship Specialty Start Date End Date Vernon Mercedes MD [address] [place] [address] PCP - General FAMILY PRACTICE 10/27/15 12/02/21 Evaristo Allan MD [address] [place] [address] [place] Locomotive Engineer CARDIOVASCULAR DISEASE 08/19/16 Raul Santana MD [address] [place] [address] CLINICAL CARDIAC ELECTROPHYSIOLOGY 06/16/17 Danny Blackwell MD [address] [place] [address] ORTHOPAEDIC SURGERY 05/01/19 documented as of this encounter
--- OUTSIDE RECORDS SUMMARY | 2024-04-23 05:20 | XMS_ITS | Encounter Summary ---
Author Organization [facility] Address [address] [place] [address]. [place], [place] [address] [place] [address] Care Team Providers Care Manhole Stripper Name Role Phone Vernon Mercedes MD Primary Care Provider [phone] Evaristo Allan MD Unavailable UnavailRaul Suresh MD Unavailable Unavailabl Myah Gee NP Unavailable Unavailable Reason for Visit * Reason Onset Date Comments Holter Monitor 11/03/2018 Encounter Details Date Type Department Care Team (Late st Contact Info) Description 11/03/2018 Telephone [facility] [address] [place] [address] Evaristo Allan MD Holter Monitor [...] 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 [address] [place] [address] Ti Bnoilla MD [address] [place] [address] 05/23/2024 3:30 PM MUSIC JOURNALIST Office Visit [facility] [address] [place] [address] Jyoti Escobar MD [address] [place] [address] [phone] documented as of this encounter Visit Diagnoses Not on filedocumented in this encounter Additional Health Concerns Infection Onset Date Last Indicated Resolved Time MRSA Comment:Negative MRSA 05/201903/11/2017 03/11/2017 10/03/2019 10:08 AM CDT documented as of this encounter Care Teams Manhole Stripper Relationship Specialty Start Date End Date Vernon Mercedes MD [address] [place] [address] PCP - General FAMILY PRACTICE 10/27/15 12/02/21 [place] [address] [place] Cashier CARDIOVASCULAR DISEASE 08/19/16 [place] [address] CLINICAL CARDIAC ELECTROPHYSIOLOGY 06/16/17 [place] [address] CARDIOVASCULAR DISEASE 06/16/17 07/10/19 documented as of this encounter
--- OUTSIDE RECORDS SUMMARY | 2024-04-23 05:20 | XMS_ITS | Encounter Summary ---
Author Organization [facility] Address [address] [place] [address]. 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 [address] [place] [address] Ti Bonilla MD [address] [place] [phone] 05/23/2024 3:30 PM ELEMENTARY ELL TEACHER [facility] [address] [place] [address] Jyoti Escobar MD [address] [place] [address] documented as of this encounter Visit Diagnoses Not on filedocumented in this encounter Additional Health Concerns Infection Onset Date Last Indicated Resolved Time MRSA Comment:Negative MRSA 05/201903/11/2017 03/11/2017 10/03/2019 10:08 AM CDT documented as of this encounter Care Teams Digital Sales Executive Relationship Specialty Start Date End Date Vernon Mercedes MD [address] [place] [address] PCP - General FAMILY PRACTICE 10/27/15 12/02/21 [place] [address] D Hanis Kiln Burner CARDIOVASCULAR DISEASE 08/19/16 [place] [address] CLINICAL CARDIAC ELECTROPHYSIOLOGY 06/16/17 Myah Handley [place] [address] CARDIOVASCULAR DISEASE 06/16/17 07/10/19 documented as of this encounter
--- OUTSIDE RECORDS SUMMARY | 2024-04-23 05:20 | XMS_ITS | Encounter Summary ---
Author Organization [facility] Address [address] [place] [address]. [place] [address] [place] [address] Care Team Providers Care Heading Saw Operator Name Role Phone Vernon Mercedes MD Primary Care Provider [phone] Evaristo Allan MD Unavailable Unavailabl Raul Duran MD Unavailable Unavailabl Myah Gee NP Unavailable Unavailable Reason for Visit * Reason Onset Date Comments Results 01/19/2019 Encounter Details Date Type Department Care Team (Late st Contact Info) Description 01/19/2019 Telephone [facility] [address] [place] [address] Gayle Arce APRN, CHAIN CARRIER-C [address] [facility] [address] [place] [address] Results Social History Tobacco Use [...] encounter Progress Notes * Gayle Arce APRN, CHAIN CARRIER-C - 01/19/2019 3:32 PM CDT Attempted to [...] Contact Info) Description 04/25/2024 11:00 AM FIELD INSTALLATION TECHNICIAN Appointment [facility] [address] [place] [address] Ti Bonilla MD [address] [place] [phone] 05/23/2024 3:30 PM FIELD INSTALLATION TECHNICIAN Office Visit [facility] [address] [place] [phone] Jyoti Escobar MD [address] [place] [address] documented as of this encounter Visit Diagnoses Not on filedocumented in this encounter Additional Health Concerns Infection Onset Date Last Indicated Resolved Time MRSA Comment:Negative MRSA 05/201903/11/2017 03/11/2017 10/03/2019 10:08 AM CDT documented as of this encounter Care Teams Heading Saw Operator Relationship Specialty Start Date End Date Vernon Mercedes MD [address] [place] [address] PCP - General FAMILY PRACTICE 10/27/15 12/02/21 Evaristo Allan MD [address] [place] [address] Jermyn Marketing And Development Coordinator CARDIOVASCULAR DISEASE 08/19/16 Raul Santana MD [address] [place] [address] CLINICAL CARDIAC ELECTROPHYSIOLOGY 06/16/17 Myah Handley NP [address] [place] [address] CARDIOVASCULAR DISEASE 06/16/17 07/10/19 documented as of this encounter
--- OUTSIDE RECORDS SUMMARY | 2024-04-23 05:20 | XMS_ITS | Encounter Summary ---
Author Organization [facility] Address [address] [place] [address]. [place], [place] [address] [place] [address] Care Team Providers Care Child Nurse Name Role Phone Vernon Mercedes MD Primary Care Provider Stanislaw Rhodes MD Unavailable Unavailab Evaristo Ying MD Unavailable UnavailRaul Suresh MD Unavailable UnavailMyah Elena NP Unavailable Unavailable Deven Cleary MD Unavailable Unavailable Encounter Details Date Type Department Care Team (Late st Contact Info) Description 09/26/2018 3:56 PM CDT - 09/26/2018 4:47 PM CDT Hospital Encounter [facility] [address] [place] [address] Vernon Mercedes MD [address] [place] [address] Discharge Disposition: Home or Self [...] 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 [address] [place] [address] Ti Bonilla MD [address] [place] [phone] 05/23/2024 3:30 PM COOLING TOWER OPERATOR Office Visit [facility] [address] [address] Jyoti Escobar MD [address] [place] [address] documented as of this encounter Procedures Procedure [...] documented as of this encounter Care Teams Child Nurse Relationship Specialty Start Date End Date Vernon [place] [place] [phone] PCP - General FAMILY PRACTICE 10/27/15 12/02/21 Stanis[place] [place] [address] CARDIOVASCULAR DISEASE 10/27/15 10/24/18 [place] [place] [address] [employer] Produce Shipper CARDIOVASCULAR DISEASE 08/19/16 [place] [place] [address] CLINICAL CARDIAC ELECTROPHYSIOLOGY 06/16/17 Myah Handley NP [address] [place] [address] CARDIOVASCULAR DISEASE 06/16/17 07/10/19 Deven Cleary MD [address] [place] [address] Cutting Machine Tender Decorative INTERVENTIONAL CARDIOLOGY 03/21/18 10/24/18 documented as of this encounter
--- OUTSIDE RECORDS SUMMARY | 2024-04-23 05:20 | XMS_ITS | Encounter Summary ---
Author Organization [facility] Address [address] [place] [address]. [place], [place] [address] [place] [address] Care Team Providers Care Oracle Soa Architect Name Role Phone Vernon Mercedes MD Primary Care Provider [phone] Elza Allan MD Unavailable UnavailRaul Suresh MD Unavailable UnavailMyah Elena NP Unavailable Unavailable Danny Blackwell MD Unavailable [phone] Encounter Details Date Type Department Care Team (Latest Contact Info) Description 06/12/2019 10:24 AM ASSOCIATE PROFESSOR OF COUNSELING - 06/12/2019 11:59 PM [facility] Hospital Encounter [facility] [address] [place] [address] Danny Blackwell MD [address] [place] [address] Discharge Disposition: Home or Self [...] Contact Info) Description 04/25/2024 11:00 AM ASSOCIATE PROFESSOR OF COUNSELING Appointment [facility] [address] [place] [address] Ti Bonilla MD [address] [place] [phone] 05/23/2024 3:30 PM ASSOCIATE PROFESSOR OF COUNSELING Office Visit [facility] [address] [place] [address] Jyoti Escobar MD [address] [place] [address] documented as of this encounter Procedures Procedure Name Priority Date/Time Associated Diagnosis Comments ECG 12-LEAD Routine 06/12/2019 10:54 AM ASSOCIATE PROFESSOR OF COUNSELING Essential hypertension documented in this encounter Results * ECG 12 lead (06/12/2019 10:54 AM ASSOCIATE PROFESSOR OF COUNSELING) 06/12/2019 10:5 4 AM ASSOCIATE PROFESSOR OF COUNSELING Narrative [facility] - 06/12/2019 12:27 PM ASSOCIATE PROFESSOR OF COUNSELING ? [facility] ?[address] [place], [place] ??[address] ? Test Date: ?2019-06-12 Pat Name: ? ELZA MCKEON ? Department: ? Room: ? Gender: ? Male ? Customer Retention Representative: ?? : ?1960 ? Requested By: DANNY ASSISTANT UNIT FORESTER Order Number: [id number] ? Reading MD: ?? Elza Allan ? Measurements Intervals ?Hollister ? Rate: ? 79 ? P: ?45 MS: ? 114 ?QRS: ?73 QRSD: ? 124 ?T: ?25 QT: ? 377 ? QTc: ?433 ? Interpretive Statements SINUS RHYTHM WITH SHORT MS INTERVAL WITH OCCASIONAL SUPRAVENTRICULAR PREMATURE COMPLEXES RIGHT BUNDLE BRANCH BLOCK CIATE PROFESSOR OF COUNSELING Procedure Note Elza Allan MD - 06/12/[address] [place] [address] Test Date: 2019-06-12 Pat Name: ELZA MCKEON Department: Room: Gender: Male Customer Retention Representative: : 1960 Requested By: DANNY BLACKWELL Order Number: [id number] Reading MD: Elza Allan Measurements Intervals Hollister Rate: 79 P: 45 MS: 114 QRS: 73 QRSD: 124 T: 25 QT: 377 QTc: 433 Interpretive Statements SINUS RHYTHM WITH SHORT MS INTERVAL WITH OCCASIONAL SUPRAVENTRICULAR PREMATURE COMPLEXES RIGHT BUNDLE BRANCH BLOCK CIATE PROFESSOR OF COUNSELING us Danny Blackwell MD ECG ORDERABLES Final Result [facility] documented in this encounter Visit Diagnoses Diagnosis Essential hypertension Unspecified essential hypertension documented in this encounter Additional Health Concerns Infection Onset Date Last Indicated Resolved Time MRSA Comment:Negative MRSA 05/201903/11/2017 03/11/2017 10/03/2019 10:08 AM CDT documented as of this encounter Care Teams Oracle Soa Architect Relationship Specialty Start Date End Date Vernon Mercedes MD [address] [place] [address] PCP - General FAMILY PRACTICE 10/27/15 12/02/21 [place] [address] [place] Associate Professor Of Counseling CARDIOVASCULAR DISEASE 08/19/16 Ra[place] [address] [address] CLINICAL CARDIAC ELECTROPHYSIOLOGY 06/16/17 [place] [address] [place] [address] CARDIOVASCULAR DISEASE 06/16/17 07/10/19 Danny Blackwell MD [address] [place] [address] ORTHOPAEDIC SURGERY 05/01/19 documented as of this encounter
--- OUTSIDE RECORDS SUMMARY | 2024-04-23 05:20 | XMS_ITS | Encounter Summary ---
Author Organization [facility] Address [address] [place] [address]. [place], [place] [address] [place] [address] Care Team Providers Care [employer] Media Specialist Name Role Phone Vernon Mercedes MD Primary Care Provider [phone] Evaristo Allan MD Unavailable UnavailRaul Suresh MD Unavailable Unavailabl Myah Gee NP Unavailable Unavailable Danny Blackwell MD Unavailable [phone] Reason for Visit * Reason Comments Pre-Op Exam RIGHT TKA Encounter Details Date Type Department Care Team (Latest Contact Info) Description 05/29/2019 8:30 AM JIG BORE OPERATOR Office Visit [facility] [address] [address] Danny Blackwell MD [address] [place] [address] Pre-Op Exam (RIGHT TKA) Social History Tobacco [...] 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 Essential hypertension ??? Paroxysmal atrial fibrillation ([facility]) ??? group home current use of anticoagulant therapy ??? Obstructive sleep apnea ??? Hyperlipidemia ??? Diabetes ([facility]) ??? 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 Cardiovascular stress test abnormal ??? Arthritis of knee ??? Derangement of medial meniscus, left ??? Encounter for follow-up examination after completed treatment for conditions other than malignant neoplasm ??? Heartburn ??? Knee pain ??? Mechanical complication of internal orthopedic device, implant or graft, initial encounter ([facility]) ??? Patella-femoral syndrome ??? Pes anserine bursitis ??? Recurrent ventral incisional hernia ??? Abdominal pain ??? Failure of total knee replacement, initial encounter ([facility]) ??? [...] CATHETERIZATION 01/04/2018 occluded prox RCA w/well developed zjqj-gk-uhzfi collaterals lvef 55-60% ??? FRACTURE SURGERY ??? HERNIA REPAIR ??? KNEE ARTHROPLASTY ??? LITHOTRIPSY ??? XA ABLATION 05/19/2016 ??? XA CORONARY INTERVENTION 03/24/[address] Cleary Family History Family history unknown: [...] device, implant or graft, initial encounter ([facility]) T84.498A 996.40 MECHANICAL COMPLICATION OF INTERNAL ORTHOPEDIC [...] up: Return for Post-Op. DANNY BLACKWELL MD BORE OPERATOR BORE OPERATOR documented in this encounter Plan of Treatment Upcoming Encounters Date Type Department Care Team (Late st Contact Info) Description 04/25/2024 11:00 AM JIG BORE OPERATOR Appointment [facility] [place] [address] Ti Bonilla MD [address] [place] [phone] 05/23/2024 3:30 PM JIG BORE OPERATOR Office Visit [facility] [address] [place] [address] Jyoti Escobar MD [address] [place] [phone] documented as of this encounter Visit Diagnoses Diagnosis Mechanical complication of internal orthopedic device, implant or graft, initial encounter ([facility])- Primary documented in this encounter Additional Health Concerns Infection Onset Date Last Indicated Resolved Time MRSA Comment:Negative MRSA 05/201903/11/2017 03/11/2017 10/03/2019 10:08 AM CDT documented as of this encounter Care Teams [employer] Library Media Specialist Relationship Specialty Start Date End Date Vernon Mercedes MD [address] [place] [address] PCP - General FAMILY PRACTICE 10/27/15 12/02/21 Evaristo Allan MD [address] [place] [address] [facility] CARDIOVASCULAR DISEASE 08/19/16 Raul Santana MD Count includes the [facility] [place] [address] CLINICAL CARDIAC ELECTROPHYSIOLOGY 06/16/17 Myah Handley NP Count includes the [facility] [place] [address] CARDIOVASCULAR DISEASE 06/16/17 07/10/19 Danny Blackwell MD [address] [facility] [place] [address] ORTHOPAEDIC SURGERY 05/01/19 documented as of this encounter
--- OUTSIDE RECORDS SUMMARY | 2024-04-23 05:20 | XMS_ITS | Encounter Summary ---
Author Organization [facility] Address [address] [place] [address]. [place], [place] [address] [place] [address] Care Team Providers Care Finance Officer Name Role Phone Vernon Mercedes MD Primary Care Provider [phone] Evaristo Allan MD Unavailable UnavailRaul Suresh MD Unavailable UnavailMyah Elena NP Unavailable Unavailable Encounter Details Date Type Department Care Team (Latest Contact Info) Description 04/25/2019 4:01 PM CORK INSULATION INSTALLER - 04/25/2019 6:11 PM CORK INSULATION INSTALLER Hospital Encounter [facility] [address] [place] [address] Danny Blackwell MD [address] [place] [address] Discharge Disposition: Home or Self [...] 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 [address] [place] [address] Ti Bonilla MD [address] [place] [address] 05/23/2024 3:30 PM CORK INSULATION INSTALLER Office Visit [facility] [address] [place] [address] Jyoti Escobar MD [address] [place] [address] documented as of this encounter Procedures Procedure Name Priority Date/Time Associated Diagnosis Comments XR KNEE STAND AP VANITA ONLY Routine 04/25/2019 4:24 PM CORK INSULATION INSTALLER Right knee pain XR KNEE RT 2V Routine 04/25/2019 4:24 PM CORK INSULATION INSTALLER Right knee pain documented in this encounter Results * XR KNEE STAND AP VANITA ONLY (04/25/2019 4:24 PM CORK INSULATION INSTALLER) Anatomical Region Laterality Modality Knee Radiographic Shannan ging 04/26/2019 4:5 9 PM CORK INSULATION INSTALLER Impressions 04/26/2019 5:04 PM CORK INSULATION INSTALLER IMPRESSION: Stable bilateral knee arthroplasty hardware. Additional stable findings. Interpreted By: Chari Grewal MD, 04/26/2019 4:59 PM Narrative 04/26/2019 5:04 PM CORK INSULATION INSTALLER EXAMINATION: ??BILATERAL STANDING KNEES AND DEDICATED RIGHT [...] XR KNEE RT 2V (04/25/2019 4:24 PM CORK INSULATION INSTALLER) Anatomical Region Laterality Modality Knee Radiographic Shannan ging 04/26/2019 4:59 PM CORK INSULATION INSTALLER Impressions 04/26/2019 5:04 PM CORK INSULATION INSTALLER IMPRESSION: Stable bilateral knee arthroplasty hardware. Additional stable findings. Interpreted By: Chari Grewal MD, 04/26/2019 4:59 PM Narrative 04/26/2019 5:04 PM CORK INSULATION INSTALLER EXAMINATION: ??BILATERAL STANDING KNEES AND DEDICATED RIGHT [...] documented as of this encounter Care Teams Finance Officer Relationship Specialty Start Date End Date Vernon [place] [address] [place] [phone] PCP - General FAMILY PRACTICE 10/27/15 12/02/21 Evar[place] [address] [place] [address] [place] Restaurant Bartender CARDIOVASCULAR DISEASE 08/19/16 Raul [place] [address] [address] CLINICAL CARDIAC ELECTROPHYSIOLOGY 06/16/17 [place] [address] [place] [address] CARDIOVASCULAR DISEASE 06/16/17 07/10/19 documented as of this encounter
--- OUTSIDE RECORDS SUMMARY | 2024-04-23 05:20 | XMS_ITS | Encounter Summary ---
Author Organization [facility] Address [address] [place] [address]. [place], [place] [id number] [place] [address] Care Team Providers Care Broach Setter Name Role Phone Vernon Mercedes MD Primary Care Provider Evaristo Allan MD Unavailable UnavailRaul Suresh MD Unavailable UnavailMyah Elena NP Unavailable Unavailable Encounter Details Date Type Department Care Team (Latest Contact Info) Description 04/25/2019 6:12 PM FASHION CONSULTANT - 04/25/2019 11:59 PM FASHION CONSULTANT Hospital Encounter [facility] 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 [address] [facility] [place] [address] Ti Bonilla MD [address] [place] [phone] 05/23/2024 3:30 PM FASHION CONSULTANT Office Visit [facility] [place] [address] Jyoti Escobar MD [address] [place], [place] [phone] documented as of this encounter Procedures Procedure Name Priority Date/Time Associated Diagnosis Comments CULTURE, BODY FLUID W/ GRAM STAIN Routine 04/25/2019 5:37 PM FASHION CONSULTANT Painful orthopaedic hardware CELL COUNT W/ DIFF BODY FLUID Routine 04/25/2019 5:37 PM FASHION CONSULTANT Painful orthopaedic hardware documented in this encounter Results * CULTURE, BODY FLUID W/ GRAM STAIN (04/25/2019 5:37 PM FASHION CONSULTANT) SPEC DESCRIPTION KNEE,RIGHT 04/25/2019 6:17 PM FASHION CONSULTANT [facility] SPECIAL REQUESTS NO SPECIAL REQUEST 04/25/2019 6:17 PM FASHION CONSULTANT [facility] GRAM STAIN RESULT NO ORGANISMS SEEN 04/25/2019 7:26 PM FASHION CONSULTANT [facility] GRAM STAIN RESULT MODERATE WBC'S SEEN 04/25/2019 7:26 PM FASHION CONSULTANT [facility] CULTURE RESULT NO GROWTH 5 DAYS 05/01/2019 9:24 AM FASHION CONSULTANT [facility] STRUCTURE OF RIGHT KNEE REGION / Unknown 04/25/2019 5:37 PM FASHION CONSULTANT 04/25/2019 6:18 PM FASHION CONSULTANT us Danny Blackwell MD MICROBIOLOGY - GENERAL ORDERAB LES Final Result [facility] [address] [place] [address], [phone] [facility] [address] [place] [address], [place] [phone] * CELL COUNT W/ DIFF BODY FLUID (04/25/2019 5:37 PM FASHION CONSULTANT) SOURCE (FLUID) KNEE,RIGHT 04/25/2019 6:17 PM FASHION CONSULTANT [facility] WBC (FLUID) 4,077 CELLS/UL 04/25/2019 6:44 PM FASHION CONSULTANT [facility] RBC (FLUID) 4,000 CELLS/UL 04/25/2019 6:44 PM FASHION CONSULTANT [facility] SEGS (FLUID) 19 % 04/25/2019 7:44 PM FASHION CONSULTANT [facility] LYMPHS (FLUID) 56 % 04/25/2019 7:44 PM FASHION CONSULTANT [facility] MONO (FLUID) 25 % 04/25/2019 7:44 PM FASHION CONSULTANT [facility] STRUCTURE OF RIGHT KNEE REGION / Unknown 04/25/2019 5:37 PM FASHION CONSULTANT Danny Blackwell MD BODY FLUIDS AND STOOLS ORDERAB LES Final Result [facility] [address] [place] [address], documented in this encounter Visit Diagnoses Diagnosis Painful orthopaedic hardware (CMS/HCC) documented in this encounter Additional Health Concerns Infection Onset Date Last Indicated Resolved Time MRSA Comment:Negative MRSA 05/201903/11/2017 03/11/2017 10/03/2019 10:08 AM CDT documented as of this encounter Care Teams Broach Setter Relationship Specialty Start Date End Date [place] [address] PCP - General FAMILY PRACTICE 10/27/15 12/02/21 [place]var[place] [address] [place] Breaker Up CARDIOVASCULAR DISEASE 08/19/16 Raul [place] [address] CLINICAL CARDIAC ELECTROPHYSIOLOGY 06/16/17 Myah Handley NP [address] [place] [address] CARDIOVASCULAR DISEASE 06/16/17 07/10/19 documented as of this encounter
--- OUTSIDE RECORDS SUMMARY | 2024-04-23 05:20 | XMS_ITS | Encounter Summary ---
Author Organization [facility] Address [address] [place] [address]. 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 Not on file documented as of this encounter Plan of Treatment Upcoming Encounters Date Type Department Care Team (Late Contact Info) Description 04/25/2024 11:00 AM STOCK DRIVER Appointment [facility] [address] [facility] [place] [address] Ti Bonilla MD [address] [place] [phone] 05/23/2024 3:30 PM STOCK DRIVER Office Visit [facility] [place] [phone] Jyoti Escobar MD [address] [place] [address] documented as of this encounter Results * CULTURE, BODY FLUID W/ GRAM STAIN (04/25/2019 5:37 PM STOCK DRIVER) SPEC DESCRIPTION KNEE,RIGHT 04/25/2019 6:17 PM STOCK DRIVER [facility] SPECIAL REQUESTS NO SPECIAL REQUEST 04/25/2019 6:17 PM STOCK DRIVER [facility] GRAM STAIN RESULT NO ORGANISMS SEEN 04/25/2019 7:26 PM STOCK DRIVER [facility] GRAM STAIN RESULT MODERATE WBC'S SEEN 04/25/2019 7:26 PM STOCK DRIVER [facility] CULTURE RESULT NO GROWTH 5 DAYS 05/01/2019 9:[address] [facility] STRUCTURE OF RIGHT KNEE REGION / Unknown 04/25/2019 5:37 PM STOCK DRIVER 04/25/2019 6:18 PM STOCK DRIVER us aDnny Blackwell MD MICROBIOLOGY - GENERAL ORDERAB LES Final Result [facility] [address] [place] [address], [place] [phone] [facility] [address] [place] [address], [place] [phone] * CELL COUNT W/ DIFF BODY FLUID (04/25/2019 5:37 PM STOCK DRIVER) SOURCE (FLUID) KNEE,RIGHT 04/25/2019 6:17 PM STOCK DRIVER [facility] WBC (FLUID) 4,077 CELLS/UL 04/25/2019 6:44 PM STOCK DRIVER [facility] RBC (FLUID) 4,000 CELLS/UL 04/25/2019 6:44 PM STOCK DRIVER [facility] SEGS (FLUID) 19 % 04/25/2019 7:44 PM STOCK DRIVER [facility] LYMPHS (FLUID) 56 % 04/25/2019 7:44 PM STOCK DRIVER [facility] MONO (FLUID) 25 % 04/25/2019 7:44 PM STOCK DRIVER [facility] STRUCTURE OF RIGHT KNEE REGION / Unknown 04/25/2019 5:37 PM STOCK DRIVER us Danny Blackwell MD BODY FLUIDS AND STOOLS ORDERAB LES Final Result [facility] [address] [place] [address], documented in this encounter Visit Diagnoses Diagnosis Painful orthopaedic hardware (CMS/HCC)- Primary documented in this encounter Additional Health Concerns Infection Onset Date Last Indicated Resolved Time MRSA Comment:Negative MRSA 05/201903/11/2017 03/11/2017 10/03/2019 10:08 AM CDT documented as of this encounter Care Teams Supervisory Training Specialist Relationship Specialty Start Date End Date [place] [address] PCP - General FAMILY PRACTICE 10/27/15 12/02/21 [place] [address] [place] Candle Cutter CARDIOVASCULAR DISEASE 08/19/16 [place] [address] CLINICAL CARDIAC ELECTROPHYSIOLOGY 06/16/17 [place] [address] CARDIOVASCULAR DISEASE 06/16/17 07/10/19 documented as of this encounter
--- OUTSIDE RECORDS SUMMARY | 2024-04-23 05:20 | XMS_ITS | Encounter Summary ---
Author Organization [facility] Address [address] [place] [address]. [place], [place] [address] [place] [address] Care Team Providers Care Compensation Intern Name Role Phone Vernon Mercedes MD Primary Care Provider [phone] Evaristo Allan MD Unavailable UnavailRaul Suresh MD Unavailable Unavailabl Myah Gee NP Unavailable Unavailable Reason for Visit * Reason Onset Date Comments Schedule Procedure 11/06/2018 Encounter Details Date Type Department Care Team (Late st Contact Info) Description 11/06/2018 Telephone [employer] INTELL[employer] [facility] [employer] [facility] [address] [place] [address] Evaristo Allan MD Schedule Procedure [...] at 1000, arrive at 0800, labs at [facility] documented in this encounter Plan of Treatment Upcoming Encounters Date Type Department Care Team (Late st Contact Info) Description 04/25/2024 11:00 AM LINE HAUL OWNER OPERATOR Appointment [facility] [address] [place] [address] Ti Bonilla MD [address] [place] [phone] 05/23/2024 3:30 PM LINE HAUL OWNER OPERATOR Office Visit [facility] [address] [place] [address] Jyoti Escobar MD [address] [place] [phone] documented as of this encounter Visit Diagnoses Not on filedocumented in this encounter Additional Health Concerns Infection Onset Date Last Indicated Resolved Time MRSA Comment:Negative MRSA 05/201903/11/2017 03/11/2017 10/03/2019 10:08 AM CDT documented as of this encounter Care Teams Compensation Intern Relationship Specialty Start Date End Date [place] [address] PCP - General FAMILY PRACTICE 10/27/15 12/02/21 [place] [address] [place] Application Software Engineer CARDIOVASCULAR DISEASE 08/19/16 [place] [address] CLINICAL CARDIAC ELECTROPHYSIOLOGY 06/16/17 Myah Handley [place] [address] CARDIOVASCULAR DISEASE 06/16/17 07/10/19 documented as of this encounter
--- OUTSIDE RECORDS SUMMARY | 2024-04-23 05:20 | XMS_ITS | Encounter Summary ---
Author Organization [facility] Address [address] [place] [address]. [place], [place] [address] [place] [address] Care Team Providers Care User Experience Manager Name Role Phone Vernon Delgado MD Primary Care Provider [phone] Evaristo Allan MD Unavailable UnavailRaul Suresh MD Unavailable Unavailabl Myah Gee NP Unavailable Unavailable Reason for Visit * Reason Comments Chest Pain sharp pain Encounter Details Date Type Department Care Team (Latest Contact Info) Description 10/26/2018 3:00 PM CDT Office Visit [facility] [address] Evaristo Allan MD Chest Pain (sharp pain) [...] CATHETERIZATION 01/04/2018 occluded prox RCA w/well developed tdip-ol-rpzec collaterals lvef 55-60% ??? FRACTURE SURGERY ??? HERNIA REPAIR ??? KNEE ARTHROPLASTY ??? XA ABLATION 05/19/2016 ??? XA CORONARY INTERVENTION 03/24/[address] Cleary Social History Tobacco Use ??? [...] ILLNESS: Mr. Zelaya is seen in the [facility] today for a scheduled followup [...] TREATER Appointment [facility] [address] [place] [address] Ti Bonilla MD [address] [place] [phone] 05/23/2024 3:30 PM PROCESS TREATER Office Visit [facility] [address] [place] [address] Jyoti Escobar MD [address] [place] [phone] documented as of this encounter Visit Diagnoses Diagnosis Coronary artery disease of [place] artery of [place] heart with stable angina pectoris ([facility])- Primary S/P coronary artery stent placement Postsurgical percutaneous transluminal coronary angioplasty status Paroxysmal atrial fibrillation ([facility]) Atrial fibrillation Essential hypertension Unspecified essential hypertension Mixed hyperlipidemia Obstructive sleep apnea Obstructive sleep apnea (adult) (pediatric) documented in this encounter Additional Health Concerns Infection Onset Date Last Indicated Resolved Time MRSA Comment:Negative MRSA 05/201903/11/2017 03/11/2017 10/03/2019 10:08 AM CDT documented as of this encounter Care Teams User Experience Manager Relationship Specialty Start Date End Date Vernon [place] [address] PCP - General FAMILY PRACTICE 10/27/15 12/02/21 [place] [phone] [place] Certified Forklift Operator CARDIOVASCULAR DISEASE 08/19/16 [place] [address] CLINICAL CARDIAC ELECTROPHYSIOLOGY 06/16/17 Myah Handley, DAIRY FARM [place] [address] CARDIOVASCULAR DISEASE 06/16/17 07/10/19 documented as of this encounter
--- OUTSIDE RECORDS SUMMARY | 2024-04-23 05:20 | XMS_ITS | Encounter Summary ---
Author Organization [facility] Address [address] [place] [address]. [place], [place] [address] [place] [address] Care Team Providers Care Auto Technician Mechanic Name Role Phone Vernon Mercedes MD Primary Care Provider [phone] Stanislaw Rhodes MD Unavailable Unavailab Evaristo Ying MD Unavailable UnavailRaul Suresh MD Unavailable UnavailMyah Elena NP Unavailable Unavailable Deven Cleary MD Unavailable Unavailable Encounter Details Date Type Department Care Team (Late st Contact Info) Description 09/26/2018 4:48 PM CDT - 09/26/2018 11:59 PM T Hospital Encounter [facility] [address] [place] [address] Vernon Mercedes MD [address] [place] [phone] Discharge Disposition: Home or Self Care (Routine [...] 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 Not on [...] st Contact Info) Description 04/25/2024 11:00 AM PREFINISH OPERATOR Appointment [facility] [address] [place] [address] [place] [address] Ti Bonilla MD [address] [place] [phone] 05/23/2024 3:30 PM PREFINISH OPERATOR Office Visit [facility] [place] [phone] Jyoti Escobar MD [address] [place] [address] documented as of this encounter Procedures Procedure Name Priority Date/Time Associated Diagnosis Comments HEMOGLOBIN, GLYCOSYLATED Routine 09/26/2018 4:45 PM CDT Type II diabetes mellitus, uncontrolled XR FOOT LT 3V Routine 09/26/2018 4:25 PM CDT Left foot pain documented in this encounter Results * (ABNORMAL) HEMOGLOBIN, GLYCOSYLATED (09/26/2018 4:45 PM CDT) HGB A1C 13.3(H) <5.7 % 09/26/2018 5:09 PM CDT [facility] Comment: 5.7 TO 6.4% INCREASED RISK OF DIABETES > OR = 6.5% CONSISTENT WITH DIABETES PER ADA GUIDELINES ESTIMATED AVG GLUCOSE 335(H) 70 - 140 MG/DL 09/26/2018 5:09 PM CDT [facility] 09/26/2018 4:45 PM CDT Vernon Mercedes MD LABORATORY Final Result [facility] [address] [place] [address], documented in this encounter Visit Diagnoses Diagnosis Type II diabetes mellitus, uncontrolled Type II or unspecified type diabetes mellitus without mention of complication, uncontrolled documented in this encounter Additional Health Concerns Infection Onset Date Last Indicated Resolved Time MRSA Comment:Negative MRSA 05/201903/11/2017 03/11/2017 10/03/2019 10:08 AM CDT documented as of this encounter Care Teams Auto Technician Mechanic Relationship Specialty Start Date End Date Vernon Mercedes MD [address] [place] [phone] PCP - General FAMILY PRACTICE 10/27/15 12/02/21 Stanis[place] [phone] CARDIOVASCULAR DISEASE 10/27/15 10/24/18 Evar[place] [phone] [place] Hog Man CARDIOVASCULAR DISEASE 08/19/16 Raul [place] [phone] CLINICAL CARDIAC ELECTROPHYSIOLOGY 06/16/17 Myah Handley, USED BUILDING MATERIALS YARD [place] [address] [phone] CARDIOVASCULAR DISEASE 06/16/17 07/10/19 Dev[place] [address] [address] Adolescent Specialist INTERVENTIONAL CARDIOLOGY 03/21/18 10/24/18 documented as of this encounter
--- OUTSIDE RECORDS SUMMARY | 2024-04-23 05:20 | XMS_ITS | Encounter Summary ---
Author Organization [facility] Address [address] [place] [address]. 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 [address] [facility] [place] [address] Ti Bonilla MD [address] [place] [phone] 05/23/2024 3:30 PM FAST FOOD SUPERVISOR [facility] [address] [place] [address] Jyoti Escobar MD [address] [place] [address] documented as of this encounter Visit Diagnoses Not on filedocumented in this encounter Additional Health Concerns Infection Onset Date Last Indicated Resolved Time MRSA Comment:Negative MRSA 05/201903/11/2017 03/11/2017 10/03/2019 10:08 AM CDT documented as of this encounter Care Teams Reference Library Assistant Relationship Specialty Start Date End Date Vernon Mercedes MD [address] [place] [address] PCP - General FAMILY PRACTICE 10/27/15 12/02/21 Evaristo Allan MD [address] [place] [address] [place] Braider Operator CARDIOVASCULAR DISEASE 08/19/16 Raul Santana MD [address] [place] [address] CLINICAL CARDIAC ELECTROPHYSIOLOGY 06/16/17 Danny Blackwell MD [address] [place] [address] ORTHOPAEDIC SURGERY 05/01/19 documented as of this encounter
--- OUTSIDE RECORDS SUMMARY | 2024-04-23 05:20 | XMS_ITS | Encounter Summary ---
Author Organization [facility] Address [address] [place] [address]. [place], [place] [address] [place], [place] [phone] Care Team Providers Care Staff Development Educator Name Role Phone Vernon Mercedes MD Primary Care Provider [phone] Evaristo Allan MD Unavailable Unavailabl Raul Duran MD Unavailable Unavailabl Myah Gee NP Unavailable Unavailable Danny Blackwell MD Unavailable [phone] Reason for Visit * Reason Onset Date Comments Medication Information 05/29/2019 Praxada Encounter Details Date Type Department Care Team (Latest Contact Info) Description 05/29/2019 [facility] Documentation [facility] [place] [phone] Kady Vann RN Medication Information (Praxada) Social [...] 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 He verbalizes understanding and denies any questions. GER DRILLING documented in this encounter Plan of Treatment Upcoming Encounters Date Type Department Care Team (Late st Contact Info) Description 04/25/2024 11:00 AM MANAGER DRILLING Appointment [facility] [address] [place] [address] Ti Bonilla MD [address] [place] [phone] 05/23/2024 3:30 PM MANAGER DRILLING Office Visit [facility] [address] [place] [phone] Jyoti Escobar MD [address] [place] [phone] documented as of this encounter Visit Diagnoses Not on filedocumented in this encounter Additional Health Concerns Infection Onset Date Last Indicated Resolved Time MRSA Comment:Negative MRSA 05/201903/11/2017 03/11/2017 10/03/2019 10:08 AM CDT documented as of this encounter Care Teams Staff Development Educator Relationship Specialty Start Date End Date Vernon Mercedes MD [address] [place] [address] PCP - General FAMILY PRACTICE 10/27/15 12/02/21 Evaristo Allan MD [facility] [place] [address] [place] Rose Grower CARDIOVASCULAR DISEASE 08/19/16 Raul Santana MD [facility] [place] [address] CLINICAL CARDIAC ELECTROPHYSIOLOGY 06/16/17 Myah Handley NP [facility] [place] [address] CARDIOVASCULAR DISEASE 06/16/17 07/10/19 Danny Blackwell MD [address] [place] [address] ORTHOPAEDIC SURGERY 05/01/19 documented as of this encounter
--- OUTSIDE RECORDS SUMMARY | 2024-04-23 05:20 | XMS_ITS | Encounter Summary ---
Author Organization [facility] Address [address] [place] [address]. [place], [place] [address] [place] [address] Care Team Providers Care Near Eastern Archaeology Lecturer Name Role Phone Vernon Mercedes MD Primary Care Provider [phone] Evaristo Allan MD Unavailable UnavailRaul Suresh MD Unavailable Unavailabl Myah Gee NP Unavailable Unavailable Danny Blackwell MD Unavailable [phone] Reason for Visit * Reason Onset Date Comments Schedule Surgery 06/12/2019 Cancelled due t o high A1C Encounter Details Date Type Department Care Team (Late st Contact Info) Description 06/12/2019 Telephone [facility] [place] [phone] Kady Vann RN Schedule Surgery (Cancelled due [...] 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 PMD Office notified of surgery cancellation. K GUARD documented in this encounter Plan of Treatment Upcoming Encounters Date Type Department Care Team (Late st Contact Info) Description 04/25/2024 11:00 AM TRUCK GUARD Appointment [facility] [address] [place] [address] Ti Bonilla MD [address] [place] [phone] 05/23/2024 3:30 PM TRUCK GUARD Office Visit [facility] [address] [place] [address] Jyoti Escobar MD [address] [place] [address] [phone] documented as of this encounter Visit Diagnoses Not on filedocumented in this encounter Additional Health Concerns Infection Onset Date Last Indicated Resolved Time MRSA Comment:Negative MRSA 05/201903/11/2017 03/11/2017 10/03/2019 10:08 AM CDT documented as of this encounter Care Teams Near Eastern Archaeology Lecturer Relationship Specialty Start Date End Date [place] [address] PCP - General FAMILY PRACTICE 10/27/15 12/02/21 [place] [phone] [place] Event Producer CARDIOVASCULAR DISEASE 08/19/16 [place] [phone] CLINICAL CARDIAC ELECTROPHYSIOLOGY 06/16/17 Myah Handley PERFORM[place] [phone] CARDIOVASCULAR DISEASE 06/16/17 07/10/19 Danny Blackwell MD [address] [place] [address] ORTHOPAEDIC SURGERY 05/01/19 documented as of this encounter
--- OUTSIDE RECORDS SUMMARY | 2024-04-23 05:20 | XMS_ITS | Encounter Summary ---
Author Organization [facility] Address [address] [place] [address]. [place], [place] [address] [place] [address] Care Team Providers Care Honing Machine Try Out Setter Name Role Phone Vernon Mercedes MD Primary Care Provider Stanislaw Rhodes MD Unavailable Unavailab Evaristo Ying MD Unavailable UnavailRaul Suresh MD Unavailable UnavailMyah Elena NP Unavailable Unavailable Deven Cleary MD Unavailable Unavailable Encounter Details Date Type Department Care Team (Late st Contact Info) Description 09/26/[address] 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 [address] [place] [address] Ti Bonilla MD [address] [place] [phone] 05/23/2024 3:30 PM DESIGNER/WRITER Office Visit [facility] [place] [address] Jyoti Escobar MD [address] [place] [address] documented as of this encounter Results * (ABNORMAL) HEMOGLOBIN, GLYCOSYLATED (09/26/2018 4:45 PM CDT) HGB A1C 13.3(H) <5.7 % 09/26/2018 5:09 PM CDT [facility] Comment: 5.7 TO 6.4% INCREASED RISK OF DIABETES > OR = 6.5% CONSISTENT WITH DIABETES PER ADA GUIDELINES ESTIMATED AVG GLUCOSE 335(H) 70 - 140 MG/DL 09/26/2018 5:09 PM CDT [facility] 09/26/2018 4:45 PM CDT Vernon Mercedes MD LABORATORY Final Result Performing Organization Address City/State/[facility] Co de Phone Number [facility] [address] [place] [address] documented in this encounter Visit Diagnoses Diagnosis Type II diabetes mellitus, uncontrolled- Primary Type II or unspecified type diabetes mellitus without mention of complication, uncontrolled documented in this encounter Additional Health Concerns Infection Onset Date Last Indicated Resolved Time MRSA Comment:Negative MRSA 05/201903/11/2017 03/11/2017 10/03/2019 10:08 AM CDT documented as of this encounter Care Teams Honing Machine Try Out Setter Relationship Specialty Start Date End Date Vernon Mercedes MD [address] [facility] [address] PCP - General FAMILY PRACTICE 10/27/15 12/02/21 Stanislaw Rhodes MD [address] [place] [address] CARDIOVASCULAR DISEASE 10/27/15 10/24/18 Evaristo Allan MD [address] [place] [address] Garland Director Foundation CARDIOVASCULAR DISEASE 08/19/16 Raul Santana MD [address] [place] [address] CLINICAL CARDIAC ELECTROPHYSIOLOGY 06/16/17 Myah Handley STUDENT ACCOUNTS COORDIN[place] [address] CARDIOVASCULAR DISEASE 06/16/17 07/10/19 Dev[place] [address] [address] Crimping Press Operator INTERVENTIONAL CARDIOLOGY 03/21/18 10/24/18 documented as of this encounter
--- OUTSIDE RECORDS SUMMARY | 2024-04-23 05:20 | XMS_ITS | Encounter Summary ---
Author Organization [facility] Address [address] [place] [address]. [place], [place] [address] [place] [address] Care Team Providers Care Hat Forming Machine Operator Name Role Phone Vernon Mercedes MD Primary Care Provider [phone] Stanislaw Rhodes MD Unavailable Unavailab Evaristo Ying MD Unavailable Unavailabl Raul Duran MD Unavailable Unavailabl Myah Gee NP Unavailable Unavailable Deven Cleary MD Unavailable Unavailable Danny Blackwell MD Unavailable [phone] Gayle Arce PURCHASING ASSOCIATE, SUPERVISOR [employer] Unavailable [phone] Ti Bonilla MD Primary Care Provider [phone] Mendel Shah DPM Unavailable [phone] Jyoti Escobar MD Unavailable [phone] Encounter Details Date Type Department Care Team (Late st Contact Info) Description 09/23/2018 Abstract [facility] CONVERSION [address] [place] [place] [id number] , Generic Conversion, Social History Tobacco Use [...] 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 Not on file documented as of this encounter Plan of Treatment Upcoming Encounters Date Type Department Care Team (Late st Contact Info) Description 04/25/2024 11:00 AM OCCUPATIONAL HEALTH AND SAFETY ADVISER Appointment [facility] [address] [place] [address] Ti Bonilla MD [address] [place] [phone] 05/23/2024 3:30 PM OCCUPATIONAL HEALTH AND SAFETY ADVISER Office Visit [facility] [address] [place] [phone] Jyoti Escobar MD [address] [place] [address] documented as of this encounter Visit Diagnoses Not on filedocumented in this encounter Additional Health Concerns Infection Onset Date Last Indicated Resolved Time MRSA Comment:Negative MRSA 05/201903/11/2017 03/11/2017 10/03/2019 10:08 AM CDT COVID-19 Rule Out 10/12/2019 10/12/2019 10/13/2019 9:43 PM CDT COVID-19 Rule Out 04/16/2021 04/16/2021 04/16/2021 12:50 PM OCCUPATIONAL HEALTH AND SAFETY ADVISER COVID-19 Confirmed 04/16/2021 04/16/2021 12:32 AM OCCUPATIONAL HEALTH AND SAFETY ADVISER COVID-19 Rule Out 05/23/2021 05/23/2021 05/25/2021 3:02 PM OCCUPATIONAL HEALTH AND SAFETY ADVISER COVID-19 Rule Out 05/25/2021 05/25/2021 05/26/2021 3:50 AM OCCUPATIONAL HEALTH AND SAFETY ADVISER COVID-19 Rule Out 08/31/2021 08/31/2021 09/01/2021 8:03 PM CDT COVID-19 Rule Out 11/14/2021 11/14/2021 11/14/2021 6:17 PM CDT documented as of this encounter Care Teams Hat Forming Machine Operator Relationship Specialty Start Date End Date Vernon Mercedes MD [address] [place] [phone] PCP - General FAMILY PRACTICE 10/27/15 12/02/21 Ti Bonilla MD [address] [place] [address] PCP - General FAMILY PRACTICE 12/03/21 Stanislaw Rhodes MD [address] [place] [address] CARDIOVASCULAR DISEASE 10/27/15 10/24/18 Evaristo Allan MD [address] [place] [address] Sneads Rug Clipper CARDIOVASCULAR DISEASE 08/19/16 Raul Santana MD [facility] [place] [address] CLINICAL CARDIAC ELECTROPHYSIOLOGY 06/16/17 Myah Handley NP [address] [place] [address] CARDIOVASCULAR DISEASE 06/16/17 07/10/19 Deven Cleary MD [address] [place] [address] Stereotyper INTERVENTIONAL CARDIOLOGY 03/21/18 10/24/18 Danny Blackwell MD [address] [place] [address] ORTHOPAEDIC SURGERY 05/01/19 Gayle Arce APRN, SUPERVISOR [employer] [address] [place] [address] 4P[address] [place] [phone] NURSE PRACTITIONER 03/03/20 Mendel Shah DPM [address] [facility] [place] [address] Consulting Physician PODIATRY/SURGERY 06/27/23 06/26/24 Jyoti Escobar MD [address] [place] [address] INTERVENTIONAL CARDIOLOGY 12/27/23 documented as of this encounter
--- OUTSIDE RECORDS SUMMARY | 2024-04-23 05:20 | XMS_ITS | Encounter Summary ---
Author Organization [facility] Address [address] [place] [address]. [place], [place] [address] [place] [address] Care Team Providers Care Fibrous Wallboard Inspector Name Role Phone Vernon Mercedes MD Primary Care Provider [phone] Evaristo Allan MD Unavailable UnavailRaul Suresh MD Unavailable Unavailabl Myah Gee NP Unavailable Unavailable Reason for Visit * Reason Onset Date Comments Medication Request 01/29/2019 Appointment Request 01/29/2019 Encounter Details Date Type Department Care Team (Late st Contact Info) Description 01/29/2019 [facility]phone [facility] [place] [address] [place] [address] Evaristo Allan MD Medication Request; [...] 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 Pt now uses [facility] in [place]. Their number is [phone]. Pt also scheduled his f/u appt. Letter mailed. documented in this encounter Plan of Treatment Upcoming Encounters Date Type Department Care Team (Late st Contact Info) Description 04/25/2024 11:00 AM STOCK HANDLER FLOORPERSON Appointment [facility] [address] [place] [address] Ti Bonilla MD [address] [place] [phone] 05/23/2024 3:30 PM STOCK HANDLER FLOORPERSON Office Visit [facility] [address] [place] [address] Jyoti Escobar MD [address] [place] [address] documented as of this encounter Visit Diagnoses Not on filedocumented in this encounter Additional Health Concerns Infection Onset Date Last Indicated Resolved Time MRSA Comment:Negative MRSA 05/201903/11/2017 03/11/2017 10/03/2019 10:08 AM CDT documented as of this encounter Care Teams Fibrous Wallboard Inspector Relationship Specialty Start Date End Date Vernon Mercedes MD [address] [place] [address] PCP - General FAMILY PRACTICE 10/27/15 12/02/21 [place] [address] [place] Shop Girl CARDIOVASCULAR DISEASE 08/19/16 [place] [address] CLINICAL CARDIAC ELECTROPHYSIOLOGY 06/16/17 [place] [address] CARDIOVASCULAR DISEASE 06/16/17 07/10/19 documented as of this encounter
--- OUTSIDE RECORDS SUMMARY | 2024-04-23 05:20 | XMS_ITS | Encounter Summary ---
Author Organization [facility] Address [address] [place] [address]. [place] [address] [place] [address] Care Team Providers Care Cardiographer Name Role Phone Vernon Mercedes MD Primary Care Provider [phone] Evaristo Allan MD Unavailable UnavailRaul Suresh MD Unavailable Unavailabl Myah Gee NP Unavailable Unavailable Reason for Referral * Imaging (Routine) - Closed Specialty Diagnoses / Procedures Referred By Contac t Referred To Contact CARDIOLOGY Diagnoses Paroxysmal atrial fibrillation ([facility]) Procedures EVENT MONITOR [place] [address] [place] [address] [place] [address] Referral ID Status Reason Start Date Expiration Date Visits Re quested Visits Authorized [id number] Closed 12/07/2018 01/08/2020 1 1 Encounter Details Date Type Department Care Team (Late st Contact Info) Description 11/03/2018 Orders Only [facility] [address] [place] [address] Evaristo Allan MD Social History Tobacco Use [...] st Contact Info) Description 04/25/2024 11:[address] [facility] [address] [facility] [address] Ti Bonilla MD [address] [place] [phone] 05/23/2024 3:30 PM JET WIPER Office Visit [facility] [address] [facility] [place] [address] Jyoti Escobar MD [address] [place] [address] documented as of this encounter Procedures Procedure Name Priority Date/Time Associated Diagnosis Comments EVENT MONITOR 30 DAYS Routine 11/13/2018 Paroxysmal atrial fibrillation ([facility]) documented in this encounter Results * EVENT MONITOR 30 DAYS (11/13/2018) Evaristo NEGRETE Final Resul t documented in this encounter Visit Diagnoses Diagnosis Paroxysmal atrial fibrillation ([facility] HHS/HCC)- Primary Atrial fibrillation documented in this encounter Additional Health Concerns Infection Onset Date Last Indicated Resolved Time MRSA Comment:Negative MRSA 05/201903/11/2017 03/11/2017 10/03/2019 10:08 AM CDT documented as of this encounter Care Teams Cardiographer Relationship Specialty Start Date End Date Vernon Mercedes MD [address] [facility] [place] [phone] PCP - General FAMILY PRACTICE 10/27/15 12/02/21 Evaristo Allan MD [address] [place] [address] [place] Sports Journalist CARDIOVASCULAR DISEASE 08/19/16 Raul Santana MD [address] [place] [address] CLINICAL CARDIAC ELECTROPHYSIOLOGY 06/16/17 Myah Handley NP [address] [place] [address] [place] [address] CARDIOVASCULAR DISEASE 06/16/17 07/10/19 documented as of this encounter
--- OUTSIDE RECORDS SUMMARY | 2024-04-23 05:20 | XMS_ITS | Encounter Summary ---
Author Organization [facility] Address [address] [place] [address]. [place] [address] [place] [address] Care Team Providers Care Manufacturer Agent Name Role Phone Vernon Mercedes MD Primary Care Provider [phone] Evaristo Allan MD Unavailable Raul Workman MD Unavailable UnavailMyah Elena NP Unavailable Unavailable Danny Blackwell MD Unavailable [phone] Reason for Visit * Reason Onset Date Comments Surgical Clearance 04/26/2019 Encounter Details Date Type Department Care Team (Late st Contact Info) Description 04/26/2019 Telephone [facility] [address] [place] [address] Evaristo Allan MD Surgical Clearance [...] call. Advised ok to proceed with surgery. L BUILDING ASSEMBLER * Angela Clay RN - 05/01/2019 10:26 AM CST Phoned pt to inform him Dr. Allan has completed his cardiac risk assessment for his upcoming knee replacement surgery. LMTC back. L BUILDING ASSEMBLER * Mavis Mccullough - 04/26/2019 4:14 PM CST Pt called stating he was seen by Dr. Blackwell today and will need a total knee replacement and will need cardiac assessment. Pt last seen by DR. Allan on 02/22/19. Ok to use that visit as the assessment? Pt can be reached at [phone]. L BUILDING ASSEMBLER documented in this encounter Plan of Treatment Upcoming Encounters Date Type Department Care Team (Late st Contact Info) Description 04/25/2024 11:00 AM METAL BUILDING ASSEMBLER Appointment [facility] [address] [facility] [place] [address] Ti Bonilla MD [address] [place] [phone] 05/23/2024 3:30 PM METAL BUILDING ASSEMBLER Office Visit [facility] [address] [place] [address] Jyoti Escobar MD [address] [place] [phone] documented as of this encounter Visit Diagnoses Not on filedocumented in this encounter Additional Health Concerns Infection Onset Date Last Indicated Resolved Time MRSA Comment:Negative MRSA 05/201903/11/2017 03/11/2017 10/03/2019 10:08 AM CDT documented as of this encounter Care Teams Manufacturer Agent Relationship Specialty Start Date End Date Vernon Mercedes MD [address] [place] [address] PCP - General FAMILY PRACTICE 10/27/15 12/02/21 Evaristo Allan MD [address] [place] [address] [place] Web Systems Developer CARDIOVASCULAR DISEASE 08/19/16 Raul Satnana MD [address] [place] [address] CLINICAL CARDIAC ELECTROPHYSIOLOGY 06/16/17 Myah Handley NP [facility] [place] [address] CARDIOVASCULAR DISEASE 06/16/17 07/10/19 Danny Blackwell MD [address] [place] [address] ORTHOPAEDIC SURGERY 05/01/19 documented as of this encounter
--- OUTSIDE RECORDS SUMMARY | 2024-04-23 05:20 | XMS_ITS | Encounter Summary ---
Author Organization [facility] Address [address] [place] [address]. [place], [place] [address] [place] [address] Care Team Providers Care Photo Booth Operator Name Role Phone Vernon Mercedes MD Primary Care Provider [phone] Elza Allan MD Unavailable UnavailRaul Suresh MD Unavailable Unavailabl Myah Gee NP Unavailable Unavailable Reason for Referral * Imaging (Routine) - Closed Specialty Diagnoses / Procedures Referred By Contac t Referred To Contact CARDIOLOGY Diagnoses Paroxysmal atrial fibrillation (CMS/HCC HHS/HCC) Coronary artery disease of [place] artery of [place] heart with stable angina pectoris (CMS/HCC) Chest pain Procedures [facility] Elza Hankins MD [address] [place] [address] [facility] [address] [place] [address] Phone: tel: fax: Referral ID Status Reason Start Date Expiration Date Visits Re quested Visits Authorized [id number] Closed 11/06/2018 12/21/2018 1 1 Reason for Visit * Imaging (Routine) - Closed Specialty Diagnoses / Procedures Referred By Charito ledbetter Referred To Contact CARDIOLOGY Diagnoses Paroxysmal atrial fibrillation (CMS/HCC HHS/HCC) Coronary artery disease of [place] artery of [place] heart with stable angina pectoris (CMS/HCC) Chest pain Procedures [facility] Elza Hankins MD [address] [place] [address] [facility] [address] [place] [address] Phone: tel: fax: Referral ID Status Reason Start Date Expiration Date Visits Re quested Visits Authorized [id number] Closed 11/06/2018 12/21/2018 1 1 Encounter Details Date Type Department Care Team (Latest Contact Info) Description 11/13/2018 7:32 AM CDT - 11/13/2018 2:18 PM CDT Hospital Encounter [facility] Pre/Post [address] [place] [address] Elza Allan MD Discharge Disposition: Home or [...] not operate equipment, such as an ATV, tailercpa, chainsaw, or motorcycle for 48 hours. 7. Notify your concrete paving supervisor of swelling or drainage at the site, or numbness, tingling, coldness, or cramping in hand/arm during rest or activity. Soreness is normal. Take Tylenol for pain. 8. Notify your concrete paving supervisor or your primary care physician if [...] call your primary care physician or your concrete paving supervisor [phone]. * Attachments The following attachments cannot be sent through Care Everywhere. * Moderate Sedation in Adults Discharge Instructions (Wallisian) documented in this encounter Medications at Time [...] Specimen(s) Removed: None Anesthesia: Procedural Surgeon: ABDULKADIR DOWINNG MD Estimated Blood Loss: Minimal Plan: Medical [...] None Anesthesia: Local and Procedural Surgeon: Jerrell Rip And Groove Machine Operator: Dr Downing consulted for Flow wire assessment. Estimated Blood Loss: Minimal ELZA ALLAN MD Date: 11/13/2018 Time: 11:00 AM documented in this encounter Plan of Treatment Upcoming Encounters Date Type Department Care Team (Late st Contact Info) Description 04/25/2024 11:00 AM HEAD ROSE GROWER Appointment [facility] [address] [facility] [facility] [place] [address] Ti Bonilla MD [address] [place] [phone] 05/23/2024 3:30 PM HEAD ROSE GROWER Office Visit [facility] [address] [place] [address] Jyoti Escobar MD [address] [place] [address] documented as of this encounter Procedures Procedure Name Priority Date/Time Associated Diagnosis Comments [facility] POSS Routine 11/13/2018 10:55 AM CDT Paroxysmal atrial fibrillation ([facility]) Coronary artery disease of [place] artery of [place] heart with stable angina pectoris Chest pain ECG 12-LEAD STAT 11/13/2018 8:38 AM CDT POCT GLUCOSE - RAMOS DOCKED DEVICE Routine 11/13/2018 8:18 AM CDT documented in this encounter Results * XA [facility] POSS (11/13/2018 10:55 AM CDT) Anatomical Region Laterality Modality Cardiac Prefitter 11/13/2018 9:30 AM CDT us Elza Allan MD FILM COLOR TESTER Final Resul t * ECG 12 lead (11/13/2018 8:38 AM CDT) 11/13/2018 8:38 AM CDT Narrative [facility] - 11/13/2018 9:35 AM CDT ? [facility] ?[address] [place], [place] ??[address] ? Test Date: ?2018-11-13 Pat Name: ? ELZA MCKEON ? Department: ? Room: ? [id number] Gender: ? Male ? Supervisor Dimension Warehouse: ?? psp : ?1960 ? Requested By: ELZA ALLAN Order Number: [id number] ? Reading : ?? Matthew Colunga ? Measurements Intervals ?Maynard ? Rate: ? 71 ? P: ?-3 PA: ? 120 ?QRS: ?34 QRSD: ? 99 ? T: ?24 QT: ? 390 ? QTc: ?427 ? Interpretive Statements SINUS RHYTHM INCOMPLETE RIGHT BUNDLE BRANCH BLOCK Procedure Note Matthew Colunga MD - 11/13/2018 [place] [address] [place] [address] Test Date: 2018-11-13 Pat Name: ELZA CHINOS Department: Room: [address] Gender: Male Supervisor Dimension Warehouse: kane : 1960 Requested By: ELZA ALLAN Order Number: [id number] Reading MD: Matthew Colunga Measurements Intervals Maynard Rate: 71 P: -3 PA: 120 QRS: 34 QRSD: 99 T: 24 QT: 390 QTc: 427 Interpretive Statements SINUS RHYTHM INCOMPLETE RIGHT BUNDLE BRANCH BLOCK us Elza Allan MD ECG ORDERABLES Final Resul t Performing Organization Address City/[facility] Care [facility]/ZIP Co de Phone Number [facility] RAD * (ABNORMAL) POCT glucose (11/13/2018 8:18 AM CDT) [facility] GLUCOSE POC 415(H) 70 - 109 11/13/2018 8:25 AM CDT [facility] ORDERS INTERFACE 11/13/2018 8:18 AM CDT Elza Allan MD POCT ORDERABLES - DEVICE Fi nal Result Performing Organization Address City/[facility] de Phone Number [facility] ORDERS INTERFACE US documented in this encounter Visit Diagnoses Diagnosis Paroxysmal atrial fibrillation ([facility]/HCC [facility]/HCC) Atrial fibrillation Coronary artery disease of [place] artery of [place] heart with stable angina pectoris ([facility]) Chest pain Chest pain, unspecified [...] AM CDT 8 Units Right Lower Abdomen jfacqscmd-alknmduw-mgbvrg icone ([place] [place] [facility] [employer]) 0905-3528-961 mg/30mL suspension 10 mL, Oral, Every 4 [...] at 1126, Until Tue11/13/18 at 1623, Post-Op dvgumszvl-fxzarwvj-vfonnjetgnc ([place] [place] [employer]EN[employer]) 4919-4968-661 mg/30mL suspension 10 mL, Oral, Every 4 [...] as of this encounter Care Teams Photo Booth Operator Relationship Specialty Start Date End Date Vernon Mercedes MD [address] [place] [address] PCP - General FAMILY PRACTICE 10/27/15 12/02/21 Elza Allan MD [address] [place] [address] [place] Civil Design Specialist CARDIOVASCULAR DISEASE 08/19/16 Raul Santana MD [address] [place] [address] CLINICAL CARDIAC ELECTROPHYSIOLOGY 06/16/17 Myah Handley NP [address] [place] [address] CARDIOVASCULAR DISEASE 06/16/17 07/10/19 documented as of this encounter
--- OUTSIDE RECORDS SUMMARY | 2024-04-23 05:20 | XMS_ITS | Encounter Summary ---
Author Organization [facility] Address [address] [place] [address]. [place], [place] [address] [place] [address] Care Team Providers Care Commissioning Manager Name Role Phone Vernon Mercedes MD Primary Care Provider [phone] Stanislaw Rhodes MD Unavailable Unavailab Evaristo Ying MD Unavailable UnavailRaul Suresh MD Unavailable UnavailMyah Elena NP Unavailable Unavailable Deven Cleary MD Unavailable Unavailable Reason for Visit * Reason Onset Date Comments Results 06/06/2018 Encounter Details Date Type Department Care Team (Late st Contact Info) Description 06/06/2018 Telephone Onset [employer] [facility] [address] [place] [address] Evaristo Allan MD Results Social [...] 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 Palpitations reported to occur during HR of 90 bpm, not during sinus tachycardia. Let's continue present meds & observe for now. RKETING REP documented in this encounter Plan of Treatment Upcoming Encounters Date Type Department Care Team (Late st Contact Info) Description 04/25/2024 11:00 AM REMARKETING REP Appointment [facility] [address] [place], [place] [phone] Ti Bonilla MD [address] [place] [phone] 05/23/2024 3:30 PM REMARKETING REP Office Visit [facility] [address] [place] [phone] Jyoti Escobar MD [address] [place] [address] documented as of this encounter Visit Diagnoses Not on filedocumented in this encounter Additional Health Concerns Infection Onset Date Last Indicated Resolved Time MRSA Comment:Negative MRSA 05/201903/11/2017 03/11/2017 10/03/2019 10:08 AM CDT documented as of this encounter Care Teams Commissioning Manager Relationship Specialty Start Date End Date Vernon Mercedes MD [address] [place] [phone] PCP - General FAMILY PRACTICE 10/27/15 12/02/21 Stanislaw Rhodes MD [address] [place] [address] CARDIOVASCULAR DISEASE 10/27/15 10/24/18 Evaristo Allan MD [address] [place] [address] [place] [employer] CARDIOVASCULAR DISEASE 08/19/16 Raul Santana MD [address] [place] [phone] CLINICAL CARDIAC ELECTROPHYSIOLOGY 06/16/17 Myah Handley NP [address] [place] [address] CARDIOVASCULAR DISEASE 06/16/17 07/10/19 Deven Cleary MD [address] [place] [address] Signalling And Communications Engineer INTERVENTIONAL CARDIOLOGY 03/21/18 10/24/18 documented as of this encounter
--- OUTSIDE RECORDS SUMMARY | 2024-04-23 05:20 | XMS_ITS | Encounter Summary ---
Author Organization [facility] Address [address] [place] [address]. [place], [place] [address] [place] [address] Care Team Providers Care Advice Nurse Name Role Phone Vernon Mercedes MD Primary Care Provider [phone] Evaristo Allan MD Unavailable UnavailRaul Suresh MD Unavailable UnavailMyah Elena NP Unavailable Unavailable Danny Blackwell MD Unavailable [phone] Encounter Details Date Type Department Care Team (Latest Contact Info) Description 06/12/2019 10:23 AM [facility] Hospital Encounter [facility] [address] [facility] [place] [address] Danny Blackwell MD [address] [place] [address] Discharge Disposition: Home or Self [...] 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 [address] Ti Bonilla MD [address] [place] [phone] 05/23/2024 3:30 PM OCCUPATIONAL HEALTH AND SAFETY MANAGER Office Visit [facility] [place] [address] Jyoti Escobar MD [address] [place] [address] documented as of this encounter Procedures Procedure Name Priority Date/Time Associated Diagnosis Comments URINALYSIS WI REFLEX TO CULTURE Routine 06/12/2019 10:38 AM OCCUPATIONAL HEALTH AND SAFETY MANAGER Mechanical complication of internal orthopedic device, implant or graft, initial encounter MRSA SCREENING Routine 06/12/2019 10:34 AM OCCUPATIONAL HEALTH AND SAFETY MANAGER Mechanical complication of internal orthopedic device, implant or graft, initial encounter HEMOGLOBIN, GLYCOSYLATED Routine 06/12/2019 10:33 AM OCCUPATIONAL HEALTH AND SAFETY MANAGER Diabetes ([facility]) BASIC METABOLIC PANEL Routine 06/12/2019 10:33 AM OCCUPATIONAL HEALTH AND SAFETY MANAGER Mechanical complication of internal orthopedic device, implant or graft, initial encounter CBC W/DIFF AUTOMATED Routine 06/12/2019 10:33 AM OCCUPATIONAL HEALTH AND SAFETY MANAGER Mechanical complication of internal orthopedic device, implant or graft, initial encounter documented in this encounter Results * (ABNORMAL) URINALYSIS WI REFLEX TO CULTURE (06/12/2019 10:38 AM OCCUPATIONAL HEALTH AND SAFETY MANAGER) COLOR (U) YELLOW 06/12/2019 10:54 AM OCCUPATIONAL HEALTH AND SAFETY MANAGER [facility] TRANSPARENCY CLEAR 06/12/2019 10:54 AM OCCUPATIONAL HEALTH AND SAFETY MANAGER [facility] SPECIFIC GRAVITY (U) 1.025 1.000 - 1.025 06/12/2019 10:54 AM OCCUPATIONAL HEALTH AND SAFETY MANAGER [facility] U PH 7.0 5.0 - 8.0 06/12/2019 10:54 AM OCCUPATIONAL HEALTH AND SAFETY MANAGER [facility] LEUKOCYTES (U) NEGATIVE NEGATIVE 06/12/2019 10:54 AM OCCUPATIONAL HEALTH AND SAFETY MANAGER [facility] NITRITES NEGATIVE NEGATIVE 06/12/2019 10:54 AM [facility] PROTEIN (U) NEGATIVE NEGATIVE 06/12/2019 10:54 AM [facility] URINE GLUCOSE TRACE(A) NEGATIVE 06/12/2019 10:54 AM [facility] KETONES MG/DL (U) NEGATIVE NEGATIVE 06/12/2019 10:54 AM [facility] UROBILINOGEN 0.2 <1.0 EU/DL 06/12/2019 10:54 AM [facility] BILIRUBIN (U) NEGATIVE NEGATIVE 06/12/2019 10:54 AM [facility] BLOOD (U) TRACE(A) NEGATIVE 06/12/2019 10:54 AM [facility] WBC/HPF 0-5 0 - 5 /HPF 06/12/2019 10:54 AM [facility] EPI/HPF OCCASIONAL /LPF 06/12/2019 10:54 AM [facility] CULTURE & SENSITIVITY INDICATED? NOT INDICATED 06/12/2019 10:54 AM [facility] URINE SPECIMEN OBTAINED BY CLEAN CATCH PROCEDURE / Unknown 06/12/2019 10:38 AM OCCUPATIONAL HEALTH AND SAFETY MANAGER us Danny Blackwell MD URINE ORDERABLES Final Result Performing Organization Address [facility]/ZIP Co de Phone Number [facility] [place] [address], * MRSA SCREENING (06/12/2019 10:34 AM OCCUPATIONAL HEALTH AND SAFETY MANAGER) SPECIMEN SOURCE RESPIRATORY, NOSE 06/12/2019 10:29 AM OCCUPATIONAL HEALTH AND SAFETY MANAGER [facility] MRSA BY PCR NASAL METHICILLIN RESISTANT STAPH AUREUS NOT DETECTED 06/14/2019 11:18 AM OCCUPATIONAL HEALTH AND SAFETY MANAGER [facility] NASAL STRUCTURE / Unknown 06/12/2019 10:34 AM OCCUPATIONAL HEALTH AND SAFETY MANAGER us Danny Blackwell MD MICROBIOLOGY - GENERAL ORDERAB LES Final Result [facility] [address] [place] [address], [place] [phone] [facility] [address] [place] [address], [place] [phone] * (ABNORMAL) CBC W/DIFF AUTOMATED (06/12/2019 10:33 AM OCCUPATIONAL HEALTH AND SAFETY MANAGER) WBC 6.3 4.5 - 10.8 x10'3/uL 06/12/2019 10:45 AM [facility] RBC 4.54 4.50 - 6.10 x10'6/uL 06/12/2019 10:45 AM [facility] HGB 12.5(L) 13.0 - 18.0 G/DL 06/12/2019 10:45 AM [facility] HCT 39.1 37.0 - 52.0 % 06/12/2019 10:45 AM [facility] MCV 86.1 78.0 - 100.0 FL 06/12/2019 10:45 AM [facility] MCH 27.5 27.0 - 31.0 PG 06/12/2019 10:45 AM [facility] MCHC 32.0(L) 33.0 - 36.0 G/DL 06/12/2019 10:45 AM [facility] RDW 13.6 11.5 - 14.5 % 06/12/2019 10:45 AM [facility] PLT 272 150 - 350 x10'3/uL 06/12/2019 10:45 AM [facility] MPV 11.1(H) 7.4 - 10.4 FL 06/12/2019 10:45 AM [facility] DIFFERENTIAL COMMENT NORMAL REFERENCE RANGE NOT ESTABLISHED FOR THE PROPORTIONAL LEUKOCYTE DIFFERENTIAL. 06/12/2019 10:45 AM [facility] SEG NEUTROPHILS 63.4 % 0 10:45 AM [facility] LYMPHOCYTES 23.8 % 06/12/2019 10:45 AM [facility] MONOCYTES 9.8 % 06/12/2019 10:45 AM [facility] EOSINOPHILS 1.7 % 06/12/2019 10:45 AM [facility] BASOPHILS 1.1 % 06/12/2019 10:45 AM [facility] IMMATURE GRANS % 0.2 % 06/12/19 20 10:45 AM [facility] NRBC 0.0 % 06/12/2019 10:45 AM [facility] ABS. NEUTROPHILS 3.99 1.60 - 8.30 x10'3/uL 06/12/2019 10:45 AM [facility] ABS. LYMPHOCYTES 1.50 0.80 - 4.70 x10'3/uL 06/12/2019 10:45 AM [facility] ABS. MONOCYTES 0.62 0.00 - 1.50 x10'3/uL 06/12/2019 10:45 AM [facility] ABS. EOSINOPHILS 0.11 0.00 - 0.40 x10'3/uL 06/12/2019 10:45 AM [facility] ABS. BASOPHILS 0.07 0.00 - 0.20 x10'3/uL 06/12/2019 10:45 AM [facility] ABS. IMMATURE GRANULOCYTES 0.01 0.00 - 0.03 x10'3/uL 06/12/2019 10:45 AM [facility] ABS. NUCLEATED RBC'S 0.00 0.00 x10'3/uL 06/12/2019 10:45 AM [facility] 06/12/2019 10:3 3 AM [facility] us Danny Blackwell MD LABORATORY Final Result [facility] [address] [place] [address], * (ABNORMAL) BASIC METABOLIC PANEL (06/12/2019 10:33 AM OCCUPATIONAL HEALTH AND SAFETY MANAGER) SODIUM S/P/B 140 136 - 145 MMOL/L 06/12/2019 10:54 AM [facility] POTASSIUM S/P/B 4.5 3.5 - 5.1 MMOL/L 06/12/2019 10:54 AM [facility] CHLORIDE S/P/B 103 98 - 107 MMOL/L 06/12/2019 10:54 AM [facility] CO2 28.1 21.0 - 32.0 MMOL/L 06/12/2019 10:54 AM [facility] GLUCOSE 207(H) 70 - 99 MG/DL 06/12/2019 10:54 AM [facility] Comment: FASTING GLUCOSE 100 TO 125 MG/DL IS CONSISTENT WITH IMPAIRED FASTING GLUCOSE. FASTING GLUCOSE >125 MG/DL IS CONSISTENT WITH DIABETES. RANDOM GLUCOSE >200 MG/DL WITH HYPERGLYCEMIC SYMPTOMS IS CONSISTENT WITH DIABETES. PER ADA GUIDELINES BUN 13 6 - 24 MG/DL 06/12/2019 10:54 AM [facility] CREATININE S/P/B 0.83 0.70 - 1.30 MG/DL 06/12/2019 10:54 AM [facility] CALCIUM S/P/B 8.9 8.4 - 10.5 MG/DL 06/12/2019 10:54 AM [facility] ANION GAP 8.9 5.0 - 15.0 MMOL/L 06/12/2019 10:54 AM [facility] OSMOLALITY (CALC) 296 MOSM/KG 020 10:54 AM [facility] Comment:REFERENCE RANGE NOT ESTABLISHED EGFR NON-AFR. AMER. >90 >89 ML/MIN/1. 73 M2 06/12/2019 10:54 AM [facility] EGFR AFR. AMER. >90 >89 ML/MIN/1. 73 M2 06/12/2019 10:54 AM [facility] GFR NOTES GFR REFERENCE S: 06/12/2019 10:54 AM [facility] Comment: THE ESTIMATED GFR IS CALCULATED [...] <15 ml/min/1.73 m2 06/12/2019 10:3 3 AM OCCUPATIONAL HEALTH AND SAFETY MANAGER us Danny Blackwell MD LABORATORY Final Result Performing Organization Address [facility] Co de Phone Number [facility] [address] [place] [address], * (ABNORMAL) HEMOGLOBIN, GLYCOSYLATED (06/12/2019 10:33 AM OCCUPATIONAL HEALTH AND SAFETY MANAGER) HGB A1C 9.8(H) <5.7 % 06/12/2019 11:06 AM OCCUPATIONAL HEALTH AND SAFETY MANAGER [facility] Comment: 5.7 TO 6.4% INCREASED RISK OF DIABETES > OR = 6.5% CONSISTENT WITH DIABETES PER ADA GUIDELINES ESTIMATED AVG GLUCOSE 235(H) 70 - 140 MG/DL 06/12/2019 11:06 AM OCCUPATIONAL HEALTH AND SAFETY MANAGER [facility] 06/12/2019 10:3 3 AM OCCUPATIONAL HEALTH AND SAFETY MANAGER us Danny Blackwell MD LABORATORY Final Result Performing Organization Address [facility] de Phone Number [facility] [address] [place] [address], documented in this encounter Visit Diagnoses Diagnosis Diabetes ([facility]) Mechanical complication of internal orthopedic device, implant or graft, initial encounter ([facility]) documented in this encounter Additional Health Concerns Infection Onset Date Last Indicated Resolved Time MRSA Comment:Negative MRSA 05/201903/11/2017 03/11/2017 10/03/2019 10:08 AM CDT documented as of this encounter Care Teams Advice Nurse Relationship Specialty Start Date End Date Vernon Mercedes MD [address] [place] [address] PCP - General FAMILY PRACTICE 10/27/15 12/02/21 Evaristo Allan MD [address] [place] [address] [place] Director [employer] CARDIOVASCULAR DISEASE 08/19/16 Raul Santana MD [address] [place] [address] CLINICAL CARDIAC ELECTROPHYSIOLOGY 06/16/17 Myah Handley NP [facility] [place] [address] CARDIOVASCULAR DISEASE 06/16/17 07/10/19 Danny Blackwell MD [address] [place] [phone] ORTHOPAEDIC SURGERY 05/01/19 documented as of this encounter
--- OUTSIDE RECORDS SUMMARY | 2024-04-23 05:21 | XMS_ITS | Encounter Summary ---
Author Organization [facility] Address [address] [place] [address]. [place], [place] [address] [place] [address] Care Team Providers Care Ultrasound Applications Specialist Name Role Phone Vernon Mercedes MD Primary Care Provider [phone] Stanislaw Rhodes MD Unavailable Unavailab Evaristo Ying MD Unavailable UnavailRaul Suresh MD Unavailable UnavailMyah Elena NP Unavailable Unavailable Deven Cleary MD Unavailable Unavailable Reason for Visit * Reason Onset Date Comments Lab Results 03/20/2018 Encounter Details Date Type Department Care Team (Late st Contact Info) Description 03/20/2018 Telephone [facility] [address] [address] Deven Cleary MD Lab Results [...] 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 Patient verbalized understanding and had no further questions ING TECHNICIAN * Pam Baig RN - 03/21/2018 3:19 PM CST Return call received from patient. Informed of glucose level. Also informed that PCP was notified. Advised to contact PCP for instructions. Stressed importance of better control of glucose level prior to the procedure. Understanding verbalized. (lab results to Dr. Cleary's desk) ING TECHNICIAN * Pam Baig RN - 03/21/2018 9:01 AM CST Call placed to Dr. Mercedes's office, primary care physician, to discuss lab results. Return call received from Olivia. Informed that patient is scheduled for coronary intervention in [place] on Tuesday. Labs done yesterday. Glucose was [...] Call placed to patient's home telephone number ([phone]). No answer. Message left that I will try to reach at other numbers. Requested return call tomorrow if unsuccessful. Call placed to listed mobile number. Telephone answered by another gentleman who indicates that jaquan is to a [employer] phone and that Evaristo left early today. Call placed to [phone] - number changed or disconnected ING TECHNICIAN * Pam Baig RN - 03/20/2018 4:58 PM CST Call received from lab at [facility]. Patient had BMP ordered for pre-procedure. Per Martha, glucose level is 518. Requested that copy of lab results be sent to primary care physician. Understanding verbalized. Per Martha, BUN is 20 and Creatinine is 1.12. ING TECHNICIAN documented in this encounter Plan of Treatment Upcoming Encounters Date Type Department Care Team (Late st Contact Info) Description 04/25/2024 11:00 AM MOLDING TECHNICIAN Appointment [facility] [address] [place] [address] Ti Bonilla MD [address] [place] [phone] 05/23/2024 3:30 PM MOLDING TECHNICIAN Office Visit [facility] [address] [place] [phone] Jyoti Escobar MD [address] [place] [phone] documented as of this encounter Visit Diagnoses Not on filedocumented in this encounter Additional Health Concerns Infection Onset Date Last Indicated Resolved Time MRSA Comment:Negative MRSA 05/201903/11/2017 03/11/2017 10/03/2019 10:08 AM CDT documented as of this encounter Care Teams Ultrasound Applications Specialist Relationship Specialty Start Date End Date Vernon Mercedes MD [address] [place] [phone] PCP - General FAMILY PRACTICE 10/27/15 12/02/21 Stanislaw Rhodes MD [address] [place] [address] CARDIOVASCULAR DISEASE 10/27/15 10/24/18 Evaristo Allan MD [address] [place] [address] [place] Pattern Changer CARDIOVASCULAR DISEASE 08/19/16 Raul Santana MD [address] [place] [address] [place] [address] CLINICAL CARDIAC ELECTROPHYSIOLOGY 06/16/17 Myah Handley, TOOL AND DIE MAKER [employer]EV[employer] [address] [place] [address] [place] [phone] CARDIOVASCULAR DISEASE 06/16/17 07/10/19 Deven Cleary MD [address] [place] [address] [place] [address] Major Assembler INTERVENTIONAL CARDIOLOGY 03/21/18 10/24/18 documented as of this encounter
--- OUTSIDE RECORDS SUMMARY | 2024-04-23 05:21 | XMS_ITS | Encounter Summary ---
Author Organization [facility] Address [address] [place] [address]. [place], [place] [address] [place] [address] Care Team Providers Care Lead Software Architect Name Role Phone Ton Delgado MD Primary Care Provider [phone] Stanislaw Rhodes MD Unavailable Unavailab Elza Ying MD Unavailable UnavailRaul Suresh MD Unavailable Unavailabl Myah Gee NP Unavailable Unavailable Reason for Visit * Reason Comments Consult Chest Pain Encounter Details Date Type Department Care Team (Latest Contact Info) Description 12/15/2017 10:30 AM CDT Office Visit [facility] [place] [address] Elza Allan MD Consult; Chest Pain Social [...] 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 This topic retrieved from [employer] on: Apr 21, 2017. Topic 79612 Version 11.0 Release: 25.6.2-122 - C26.3 ?2018??[employer]. and/or its affiliates.??All rights reserved. figure 1: Atrial fibrillation This drawing shows where the heart is located in the chest. In atrial fibrillation, the electrical signals that control the heartbeat are abnormal. As a result, the top two chambers of the heart (seearrows) stop pumping effectively, and blood that should move out of these chambers gets left behind. Graphic 52428 Version 3.0 figure 2: Signs of stroke The letters in the word fast help you remember the signs of stroke. If a person shows any of these signs, call an ambulance right away. In the [place] and [place], dial ??9-1-1. ?? Graphic 58092 Version 3.0 Consumer Information Use and Disclaimer [...] that is right for you.The use of [employer] content is governed by the [employer] Terms of Use. ??2018 [employer]. All rights reserved. Copyright ?2018??[employer] and/or its affiliates.??All rights reserved. 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 Smoking status: [...] Mixed hyperlipidemia 3. 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 Obstructive sleep apnea Referring Provider: No ref. provider found PCP: OTN DELGADO MD * Elza Allan MD - 12/15/2017 12:00 AM CDT HISTORY OF PRESENT ILLNESS: Mr. Zelaya is seen in the [facility] today for reevaluation of his [...] st Contact Info) Description 04/25/2024 11:00 AM PRESIDENT + PUBLISHER Appointment [facility] [address] [place] [address] Ti Bonilla MD [address] [place] [phone] 05/23/2024 3:30 PM PRESIDENT + PUBLISHER Office Visit [facility] [address] [place] [address] Jyoti Escobar MD [address] [place] [phone] documented as of this encounter Visit Diagnoses Diagnosis Paroxysmal atrial fibrillation ([facility])- Primary Atrial fibrillation Essential hypertension Unspecified essential hypertension Mixed hyperlipidemia Obstructive sleep apnea Obstructive sleep apnea (adult) (pediatric) skilled nursing current use of anticoagulant therapy documented in this encounter Additional Health Concerns Infection Onset Date Last Indicated Resolved Time MRSA Comment:Negative MRSA 05/201903/11/2017 03/11/2017 10/03/2019 10:08 AM CDT documented as of this encounter Care Teams Lead Software Architect Relationship Specialty Start Date End Date Ton Delgado MD [address] [place] [address] PCP - General FAMILY PRACTICE 10/27/15 12/02/21 [place] [address] CARDIOVASCULAR DISEASE 10/27/15 10/24/18 [place] [address] Cook Physician CARDIOVASCULAR DISEASE 08/19/16 [place] [address] CLINICAL CARDIAC ELECTROPHYSIOLOGY 06/16/17 Myah Handley, CORPORATE TREASURY ANALYST [address] [place] [address] CARDIOVASCULAR DISEASE 06/16/17 07/10/19 documented as of this encounter
--- OUTSIDE RECORDS SUMMARY | 2024-04-23 05:21 | XMS_ITS | Encounter Summary ---
Author Organization [facility] Address [address] [place] [address]. [place], [place] [address] [place] [address] Care Team Providers Care Violin Restorer Name Role Phone Vernon Mercedes MD Primary Care Provider [phone] Stanislaw Rhodes MD Unavailable Unavailab le Reason for Visit * Reason Onset Date Comments Follow Up Call 05/24/2016 Pt called regard ing the Return To Work letter faxed Tuesday. 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 He v/u. MOTIVE SERVICE ASSISTANT documented in this encounter Plan of Treatment Upcoming Encounters Date Type Department Care Team (Late st Contact Info) Description 04/25/2024 11:00 AM AUTOMOTIVE SERVICE ASSISTANT Appointment [facility] [address] [place] [address] Ti Bonilla MD [address] [place] [phone] 05/23/2024 3:30 PM AUTOMOTIVE SERVICE ASSISTANT Office Visit [facility] [address] [place] [address] Jyoti Escobar MD [address] [place] [phone] documented as of this encounter Visit Diagnoses Not on filedocumented in this encounter Care Teams Violin Restorer Relationship Specialty Start Date End Date Vernon Mercedes MD [address] [place] [phone] PCP - General FAMILY PRACTICE 10/27/15 12/02/21 Stanislaw Rhodes MD [address] [place] [address] CARDIOVASCULAR DISEASE 10/27/15 10/24/18 documented as of this encounter
--- OUTSIDE RECORDS SUMMARY | 2024-04-23 05:21 | XMS_ITS | Encounter Summary ---
Author Organization [facility] Address [address] [place] [address]. 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 [address] [place] [address] Ti Bonilla MD [address] [place] [phone] 05/23/2024 3:30 PM CARDIOVASCULAR TECHNICIAN [facility] [address] [place] [address] Jyoti Escobar MD [address] [place] [address] documented as of this encounter Visit Diagnoses Not on filedocumented in this encounter Additional Health Concerns Infection Onset Date Last Indicated Resolved Time MRSA Comment:Negative MRSA 05/201903/11/2017 03/11/2017 10/03/2019 10:08 AM CDT documented as of this encounter Care Teams Wood Model Maker Relationship Specialty Start Date End Date Vernon Mercedes MD [address] [place] [address] PCP - General FAMILY PRACTICE 10/27/15 12/02/21 [place] [address] CARDIOVASCULAR DISEASE 10/27/15 10/24/18 [place] [address] [place] Silk Winding Machine Operator CARDIOVASCULAR DISEASE 08/19/16 [place] [address] CLINICAL CARDIAC ELECTROPHYSIOLOGY 06/16/17 [place] [address] CARDIOVASCULAR DISEASE 06/16/17 07/10/19 documented as of this encounter
--- OUTSIDE RECORDS SUMMARY | 2024-04-23 05:21 | XMS_ITS | Encounter Summary ---
Author Organization [facility] Address [address] [place] [address]. [place], [place] [address] [place] [address] Care Team Providers Care Online Publisher Name Role Phone Vernon Mercedes MD Primary Care Provider [phone] Stanislaw Rhodes MD Unavailable Unavailab Evaristo Ying MD Unavailable UnavailRaul Suresh MD Unavailable Unavailabl Myah Gee NP Unavailable Unavailable Deven Cleary MD Unavailable Unavailable Reason for Visit * Reason Onset Date Comments Medication 05/02/2018 Encounter Details Date Type Department Care Team (Late st Contact Info) Description 05/02/2018 Telephone [facility] [address] [address] Deven Cleary MD Medication Social [...] 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 Will ask them to look into this until [facility] has f/u in [place] appt A MARKETING SPECIALIST * Nancy Alvaradofantasmapeterson - 05/02/2018 9:26 AM CST CHECKING TO SEE WHICH MEDS HE IS TO BE ON...BIRLINTA OR PRADEXA A MARKETING SPECIALIST documented in this encounter Plan of Treatment Upcoming Encounters Date Type Department Care Team (Late st Contact Info) Description 04/25/2024 11:00 AM MEDIA MARKETING SPECIALIST Appointment [facility] [address] [place] [place], [place] [address] Ti Bonilla MD [address] [place] [phone] 05/23/2024 3:30 PM MEDIA MARKETING SPECIALIST Office Visit [facility] [address] [place] [phone] Jyoti Escobar MD [address] [place] [address] documented as of this encounter Visit Diagnoses Not on filedocumented in this encounter Additional Health Concerns Infection Onset Date Last Indicated Resolved Time MRSA Comment:Negative MRSA 05/201903/11/2017 03/11/2017 10/03/2019 10:08 AM CDT documented as of this encounter Care Teams Online Publisher Relationship Specialty Start Date End [place] [phone] PCP - General FAMILY PRACTICE 10/27/15 12/02/21 [place] [address] CARDIOVASCULAR DISEASE 10/27/15 10/24/18 [place] [address] [place] Seismic Prospecting Observer Helper CARDIOVASCULAR DISEASE 08/19/16 Raul Santana MD [address] [place] [address] CLINICAL CARDIAC ELECTROPHYSIOLOGY 06/16/17 Myah Handley NP [address] [place] [address] CARDIOVASCULAR DISEASE 06/16/17 07/10/19 [place] [address] Salesman/Owner INTERVENTIONAL CARDIOLOGY 03/21/18 10/24/18 documented as of this encounter
--- OUTSIDE RECORDS SUMMARY | 2024-04-23 05:21 | XMS_ITS | Encounter Summary ---
Author Organization [facility] Address [address] [place] [address]. [place] [address] [place] [address] Care Team Providers Care Group Burner Machine Name Role Phone Vernon Mercedes MD Primary Care Provider [phone] Stanislaw Rhodes MD Unavailable Unavailab Evaristo Ying MD Unavailable Unavailabl e Reason for Visit * Reason Onset Date Comments Appointment Request 05/23/2017 Due for reca ll, appt scheduled, letter sent Encounter Details Date Type Department Care Team (Late st Contact Info) Description 05/23/2017 Telephone [facility] AT [facility] [place] [address] Myah Handley NP Appointment Request [...] 06-16-17 at 10:30am with Myah Handley NP. INE TICKET AGENT documented in this encounter Plan of Treatment Upcoming Encounters Date Type Department Care Team (Late st Contact Info) Description 04/25/2024 11:00 AM AIRLINE TICKET AGENT Appointment [facility] [address] [place] [address] Ti Bonilla MD [address] [place] [phone] 05/23/2024 3:30 PM AIRLINE TICKET AGENT Office Visit [facility] [address] [place] [address] Jyoti Escobar MD [address] [place] [address] documented as of this encounter Visit Diagnoses Not on filedocumented in this encounter Additional Health Concerns Infection Onset Date Last Indicated Resolved Time MRSA Comment:Negative MRSA 05/201903/11/2017 03/11/2017 10/03/2019 10:08 AM CDT documented as of this encounter Care Teams Group Burner Machine Relationship Specialty Start Date End Date Vernon Mercedes MD [address] [place] [address] PCP - General FAMILY PRACTICE 10/27/15 12/02/21 Stanislaw Rhodes MD [address] [place] [address] CARDIOVASCULAR DISEASE 10/27/15 10/24/18 Evaristo Allan MD [address] [place] [address] [place] Filter Changing Technician CARDIOVASCULAR DISEASE 08/19/16 documented as of this encounter
--- OUTSIDE RECORDS SUMMARY | 2024-04-23 05:21 | XMS_ITS | Encounter Summary ---
Author Organization [facility] Address [address] [place] [address]. [place], [place] [address] [place] [address] Care Team Providers Care Chief Analytics Officer Name Role Phone Vernon Mercedes MD Primary Care Provider [phone] Stanislaw Rhodes MD Unavailable Unavailab Evaristo Ying MD Unavailable UnavailRaul Suresh MD Unavailable UnavailMyah Elena NP Unavailable Unavailable Deven Cleary MD Unavailable Unavailable Encounter Details Date Type Department Care Team (Late st Contact Info) Description 03/15/2018 Pre-Procedure Call [place] Quality Assurance Analyst Pre/Post [address] [place] [address] Barb Leyva RN Social History [...] 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 [address] [place] [address] Ti Bonilla MD [address] [place] [phone] 05/23/2024 3:30 PM CARPENTER PACKING Office Visit [facility] [address] [place] [address] Jyoti Escobar MD [address] [place] [address] documented as of this encounter Visit Diagnoses Not on filedocumented in this encounter Additional Health Concerns Infection Onset Date Last Indicated Resolved Time MRSA Comment:Negative MRSA 05/201903/11/2017 03/11/2017 10/03/2019 10:08 AM CDT documented as of this encounter Care Teams Chief Analytics Officer Relationship Specialty Start Date End Date [place] [address] PCP - General FAMILY PRACTICE 10/27/15 12/02/21 [place] [address] CARDIOVASCULAR DISEASE 10/27/15 10/24/18 [place] [address] [place] National Accounts Recruiter CARDIOVASCULAR DISEASE 08/19/16 [place] [address] CLINICAL CARDIAC ELECTROPHYSIOLOGY 06/16/17 Myah Handley INTERACTIVE MEDIA MARKETING [place] [address] CARDIOVASCULAR DISEASE 06/16/17 07/10/19 [place] [address] Motorcycle Racer INTERVENTIONAL CARDIOLOGY 03/21/18 10/24/18 documented as of this encounter
--- OUTSIDE RECORDS SUMMARY | 2024-04-23 05:21 | XMS_ITS | Encounter Summary ---
Author Organization [facility] Address [address] [place] [address]. [place], [place] [address] [place] [address] Care Team Providers Care Business Director Name Role Phone Ton Mercedes MD Primary Care Provider [phone] Stanislaw Rhodes MD Unavailable Unavailab Elza Ying MD Unavailable UnavailRaul Suresh MD Unavailable Unavailabl Myah Gee NP Unavailable Unavailable Reason for Referral * Imaging (Routine) - Closed Specialty Diagnoses / Procedures Referred By Conttianna t Referred To Contact CARDIOLOGY Diagnoses Angina effort (CMS/HCC) Abnormal stress test Diabetes (CMS/HCC HHS/HCC) Hyperlipidemia Procedures XA [facility] Elza Hnakins MD [address] [place] [address] [place] [address] [place] [address] Phone: tel: fax: Referral ID Status Reason Start Date Expiration Date Visits Re quested Visits Authorized [id number] Closed 12/29/2017 04/14/2018 1 1 Reason for Visit * Imaging (Routine) - Closed Specialty Diagnoses / Procedures Referred By Charito ledbetter Referred To Contact CARDIOLOGY Diagnoses Angina effort (CMS/HCC) Abnormal stress test Diabetes (CMS/HCC HHS/HCC) Hyperlipidemia Procedures XA [facility] Elza Hankins MD [address] [place] [address] [place] [address] [place] [address] Phone: tel: fax: Referral ID Status Reason Start Date Expiration Date Visits Re quested Visits Authorized [id number] Closed 12/29/2017 04/14/2018 1 1 Encounter Details Date Type Department Care Team (Latest Contact Info) Description 01/04/2018 11:15 AM CDT - 01/04/2018 4:46 PM CDT Hospital Encounter 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 Left ventriculography showed preserved LVEF 55-60%. Given the present coronary anatomy, medical therapy with aggressive cardiac risk factor modification was recommended. His B-blockade was increased and Imdur added to his medical regimen. He will be followed closely in the future & SEWER AND INSPECTOR intervention contemplated if he remains symptomatic despite [...] as directed. Follow-up with Dr Allan in [facility] in 1 month. Signed: ELZA [...] will besent to your doctor. See your director market intelligence as directed. Continue medications as directed. Our office is open Tuesday through Tuesday from 8:00am to 4:30 pm, if you have general questions or if you need to schedule an appointment. Call at [phone] documented in this encounter Medications at Time [...] ILLNESS: Mr. Mckeon is seen in the [facility] today for reevaluation of his [...] of education: N/A ?? 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 Social History Main Topics ??? Smoking [...] hyperlipidemia ?? 3. Essential hypertension ?? 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 5. [...] were discussed with the patient and/or family/personal brand representative. Questions were answered and the patient/family/personal brand representative verbalized understanding and desires to proceed. [...] None Anesthesia: Local and Procedural Surgeon: [employer] Sales Consultant: None Estimated Blood Loss: Minimal ELZA ALLAN MD Date: 01/04/2018 Time: 2:19 PM documented in this encounter Plan of Treatment Upcoming Encounters Date Type Department Care Team (Late st Contact Info) Description 04/25/2024 11:00 AM LABORER CHEMICAL PROCESSING Appointment [facility] [address] [place] [address] [place] [address] Ti Bonilla MD [address] [place] [phone] 05/23/2024 3:30 PM LABORER CHEMICAL PROCESSING Office Visit [facility] [address] [place] [address] [place] [address] Jyoti Escobar MD [address] [place] [address] documented as of this encounter Procedures Procedure Name Priority Date/Time Associated Diagnosis Comments XA [facility] POSS Routine 01/04/2018 2:05 PM CDT Angina effort (HCC) Abnormal stress test Diabetes (CMS/HCC HHS/HCC) Hyperlipidemia POCT GLUCOSE - RAMOS DOCKED DEVICE Routine 01/04/2018 12:15 PM CDT ECG 12-LEAD STAT 01/04/2018 12:11 PM CDT documented in this encounter Results * XA C POSS (01/04/2018 2:05 PM CDT) Anatomical Region Laterality Modality Cardiac Site Controller 01/04/2018 1:30 PM CDT us Elza Allan MD ELDERLY SITTER Final Resul t * (ABNORMAL) POCT glucose (01/04/2018 12:15 PM CDT) GLUCOSE POC 231(H) 70 - 109 01/04/2018 12:19 PM CDT [facility] ORDERS INTERFACE 01/04/2018 12:1 5 PM CDT us Elza Allan MD POCT ORDERABLES - DEVICE Fi nal Result [facility] ORDERS INTERFACE US * ECG 12 lead (01/04/2018 12:11 PM CDT) 01/04/2018 12:1 1 PM CDT Narrative [facility] - 01/04/2018 1:47 PM CDT ? [facility] ? [address] [place], [place] ??[address] ? Test Date: ?2018-01-04 Pat Name: ? ELZA MCKEON ? Department: ?? 1 ? Room: ? CLPP Gender: ? Male ? Film Process Operator: ?? CE : ?1960 ? Requested By: ELZA ALLAN Order Number: [id number] ? Reading MD: ?? Edwar Evans ? Measurements Intervals ?[place] ? Rate: ? 68 ? P: ?74 CT: ? 138 ?QRS: ?31 QRSD: ? 108 ?T: ?-1 QT: ? 408 ? QTc: ?436 ? Interpretive Statements SINUS RHYTHM WITH SINUS ARRHYTHMIA LOW QRS VOLTAGE IN PRECORDIAL LEADS INCOMPLETE RIGHT BUNDLE BRANCH BLOCK Procedure Note Edwar Evans MD - 01/04/2018 [facility] [address] [place] [address] Test Date: 2018-01-04 Pat Name: ELZA MCKEON Department: 1 Room: [facility] Gender: Male Film Process Operator: EDNA : 1960 Requested By: ELZA ALLAN Order Number: [id number] Jose Antonio MD: Edwar Evans Measurements Intervals [place] Rate: 68 P: 74 CT: 138 QRS: 31 QRSD: 108 T: -1 QT: 408 QTc: 436 Interpretive Statements SINUS RHYTHM WITH SINUS ARRHYTHMIA LOW QRS VOLTAGE IN PRECORDIAL LEADS INCOMPLETE RIGHT BUNDLE BRANCH BLOCK us Elza Allan MD ECG ORDERABLES Final Resul t [facility] documented in this encounter Visit Diagnoses Diagnosis Angina effort ([facility]) Other and unspecified angina pectoris Abnormal stress test Other nonspecific abnormal cardiovascular system function study Diabetes ([facility]) Hyperlipidemia Other and unspecified hyperlipidemia documented in [...] as of this encounter Care Teams Business Director Relationship Specialty Start Date End Date Ton Mercedes MD [address] [place] [address] PCP - General FAMILY PRACTICE 10/27/15 12/02/21 Stanislaw Rhodes MD [address] [place] [address] [place] [address] CARDIOVASCULAR DISEASE 10/27/15 10/24/18 [place] [address] [address] [place] Hand Stapler CARDIOVASCULAR DISEASE 08/19/16 Raul [place] [address] [place] [address] CLINICAL CARDIAC ELECTROPHYSIOLOGY 06/16/17 [place] [address] [place] [address] CARDIOVASCULAR DISEASE 06/16/17 07/10/19 documented as of this encounter
--- OUTSIDE RECORDS SUMMARY | 2024-04-23 05:21 | XMS_ITS | Encounter Summary ---
Author Organization [facility] Address [address] [place] [address]. [place], [place] [address] [place] [address] Care Team Providers Care Merchandise Team Manager Name Role Phone Vernon Mercedes MD Primary Care Provider [phone] Stanislaw Rhodes MD Unavailable Unavailab Evaristo Ying MD Unavailable Unavailabl e Encounter Details Date Type Department Care Team (Late Contact Info) Description 05/20/2016 Orders [place] [address] , Generic Conversion, Social History Tobacco Use [...] (Late Contact Info) Description 04/25/2024 11:00 AM MARKER SHIPMENTS Appointment [facility] [place] [address] Ti Bonilla MD [address] [place] [phone] 05/23/2024 3:30 PM MARKER SHIPMENTS Office Visit [facility] [address] [place] [address] Jyoti Escobar MD [address] [place] [address] documented as of this encounter Procedures Procedure Name Priority Date/Time Associated Diagnosis Comments MAGNESIUM TIMED 05/20/2016 5:14 AM MARKER SHIPMENTS documented in this encounter Results * MAGNESIUM (05/20/2016 5:14 AM MARKER SHIPMENTS) MAGNESIUM 1.6 1.6 - 2.6 MG/DL 05/20/2016 6:01 AM MARKER SHIPMENTS [facility] SERUM OR PLASMA SPECIMEN / Unknown 05/20/2016 5:14 AM MARKER SHIPMENTS 05/20/2016 5:26 AM MARKER SHIPMENTS us Generic Conversion Md [facility] Final R esult [facility] [address] [place] [address], [id number] documented in this encounter Visit Diagnoses Not on filedocumented in this encounter Additional Health Concerns Infection Onset Date Last Indicated Resolved Time MRSA Comment:Negative MRSA 05/201903/11/2017 03/11/2017 10/03/2019 10:08 AM CDT documented as of this encounter Care Teams Merchandise Team Manager Relationship Specialty Start Date End Date [place] [address] PCP - General FAMILY PRACTICE 10/27/15 12/02/21 [place] [address] [address] CARDIOVASCULAR DISEASE 10/27/15 10/24/18 [place] [address] [place] Supervisor Grips CARDIOVASCULAR DISEASE 08/19/16 documented as of this encounter
--- OUTSIDE RECORDS SUMMARY | 2024-04-23 05:21 | XMS_ITS | Encounter Summary ---
Author Organization [facility] Address [address] [place] [address]. [place], [place] [address] [place] [address] Care Team Providers Care Manager Balance Name Role Phone Vernon Mercedes MD Primary Care Provider Stanislaw Rhodes MD Unavailable Unavailab Evaristo Ying MD Unavailable UnavailRaul Suresh MD Unavailable Unavailabl Myah Gee NP Unavailable Unavailable Encounter Details Date Type Department Care Team (Late st Contact Info) Description 12/26/2017 Scan [facility] [address] [place] [address] Scanned, Documents Social History Tobacco [...] st Contact Info) Description 04/25/2024 11:00 AM DRIVING SCHOOL INSTRUCTOR Appointment [facility] [address] [address] [place] [address] Ti Bonilla MD [address] [place] [phone] 05/23/2024 3:30 PM DRIVING SCHOOL INSTRUCTOR Office Visit [facility] [address] [place] [address] Jyoti Escobar MD [address] [place] [address] documented as of this encounter Procedures Procedure [...] as of this encounter Care Teams Manager Balance Relationship Specialty Start Date End Date Vernon Mercedes MD [address] [place] [address] PCP - General FAMILY PRACTICE 10/27/15 12/02/21 [place] [address] CARDIOVASCULAR DISEASE 10/27/15 10/24/18 [place] [address] [address] [place] Automotive Assembler CARDIOVASCULAR DISEASE 08/19/16 Raul [place] [address] [address] CLINICAL CARDIAC ELECTROPHYSIOLOGY 06/16/17 [place] [address] CARDIOVASCULAR DISEASE 06/16/17 07/10/19 documented as of this encounter
--- OUTSIDE RECORDS SUMMARY | 2024-04-23 05:21 | XMS_ITS | Encounter Summary ---
Author Organization [facility] Address [address] [place] [address]. [place], [place] [address] [place] [address] Care Team Providers Care Scrap Shear Operator Name Role Phone Vernon Mercedes MD Primary Care Provider [phone] Stanislaw Rhodes MD Unavailable Unavailab Evaristo Ying MD Unavailable UnavailRaul Suresh MD Unavailable UnavailMyah Elena NP Unavailable Unavailable Deven Cleary MD Unavailable Unavailable Encounter Details Date Type Department Care Team (Late Contact Info) Description 10/27/2016 Abstract [facility] [address] [place] [address] Danny Blackwell MD [address] [place] [address] Social History Tobacco Use Types [...] (Late Contact Info) Description 04/25/2024 11:00 AM AUTO WRECKER Appointment [facility] [address] [facility] [place] [address] Ti Bonilla MD [address] [place] [address] 05/23/2024 3:30 PM AUTO WRECKER [facility] [address] [place] [address] Jyoti Escobar MD [address] [place] [address] documented as of this encounter Visit Diagnoses Diagnosis Aftercare following joint replacement surgery Aftercare following joint replacement documented in this encounter Additional Health Concerns Infection Onset Date Last Indicated Resolved Time MRSA Comment:Negative MRSA 05/201903/11/2017 03/11/2017 10/03/2019 10:08 AM CDT documented as of this encounter Care Teams Scrap Shear Operator Relationship Specialty Start Date End Date Vernon Mercedes MD [address] [place] [address] PCP - General FAMILY PRACTICE 10/27/15 12/02/21 [place] [address] CARDIOVASCULAR DISEASE 10/27/15 10/24/18 [place] [address] [place] Vice President Talent Management CARDIOVASCULAR DISEASE 08/19/16 [place] [address] CLINICAL CARDIAC ELECTROPHYSIOLOGY 06/16/17 [place] [address] CARDIOVASCULAR DISEASE 06/16/17 07/10/19 [place] [address] [place] Specialist INTERVENTIONAL CARDIOLOGY 03/21/18 10/24/18 documented as of this encounter
--- OUTSIDE RECORDS SUMMARY | 2024-04-23 05:21 | XMS_ITS | Encounter Summary ---
Author Organization [facility] Address [address] [place] [address]. [place], [place] [address] [place] [address] Care Team Providers Care Laborer Cutting Tool Name Role Phone Vernon Mercedes MD Primary Care Provider [phone] Stanislaw Rhodes MD Unavailable Unavailab Evaristo Ying MD Unavailable Unavailabl e Encounter Details Date Type Department Care Team (Late Contact Info) Description 02/10/2017 Orders Only [facility] [address] [place] [phone] Mendel Hobbs, RN Social History Tobacco Use [...] (Late Contact Info) Description 04/25/2024 11:[address] [facility] [place] [address] Ti Bonilla MD [address] [place] [phone] 05/23/2024 3:30 PM BAKER BREAD Office Visit [facility] [address] [place] [address] Jyoti Escobar MD [address] [place] [address] documented as of this encounter Visit Diagnoses Not on filedocumented in this encounter Care Teams Laborer Cutting Tool Relationship Specialty Start Date End Date Vernon Mercedes MD [address] [place] [address] PCP - General FAMILY PRACTICE 10/27/15 12/02/21 Stanislaw Rhodes MD [address] [place] [address] CARDIOVASCULAR DISEASE 10/27/15 10/24/18 Evaristo Allan MD [address] [place] [address] [place] Metal Buffer CARDIOVASCULAR DISEASE 08/19/16 documented as of this encounter
--- OUTSIDE RECORDS SUMMARY | 2024-04-23 05:21 | XMS_ITS | Encounter Summary ---
Author Organization [facility] Address [address] [place] [address]. [place], [place] [address] [place] [address] Care Team Providers Care Electromechanical Equipment Assembler Name Role Phone Vernon Mercedes MD Primary Care Provider [phone] Stanislaw Rhodes MD Unavailable Unavailab Evaristo Yign MD Unavailable UnavailRaul Suresh MD Unavailable UnavailMyah Elena NP Unavailable Unavailable Deven Cleary MD Unavailable Unavailable Reason for Visit * Reason Onset Date Comments Question 03/29/2018 Encounter Details Date Type Department Care Team (Late st Contact Info) Description 03/29/2018 Telephone [facility] AT [address] [address] Deven Cleary MD Question Social [...] follow up with Dr. Allan in the [facility]. Encouraged to call with any problems or if he would like to see Dr. Cleary again. Understanding verbalized. T HISTORY CLERK documented in this encounter Plan of Treatment Upcoming Encounters Date Type Department Care Team (Late st Contact Info) Description 04/25/2024 11:00 AM GUEST HISTORY CLERK Appointment [facility] [address] [place] [address] Ti Bonilla MD [address] [place] [phone] 05/23/2024 3:30 PM GUEST HISTORY CLERK Office Visit [facility] [address] [place] [address] Jyoti Escobar MD [address] [place] [phone] documented as of this encounter Visit Diagnoses Not on filedocumented in this encounter Additional Health Concerns Infection Onset Date Last Indicated Resolved Time MRSA Comment:Negative MRSA 05/201903/11/2017 03/11/2017 10/03/2019 10:08 AM CDT documented as of this encounter Care Teams Electromechanical Equipment Assembler Relationship Specialty Start Date End Date Vernon Mercedes MD [address] [place] [address] PCP - General FAMILY PRACTICE 10/27/15 12/02/21 Stanislaw Rhodes MD [address] [place] [address] CARDIOVASCULAR DISEASE 10/27/15 10/24/18 [place] [address] [place] Computational Theory Scientist CARDIOVASCULAR DISEASE 08/19/16 Raul Santana MD [address] [place] [address] CLINICAL CARDIAC ELECTROPHYSIOLOGY 06/16/17 Myah Handley NP [address] [place] [address] CARDIOVASCULAR DISEASE 06/16/17 07/10/19 Deven Cleary MD [address] [place] [address] Rig Superintendent INTERVENTIONAL CARDIOLOGY 03/21/18 10/24/18 documented as of this encounter
--- OUTSIDE RECORDS SUMMARY | 2024-04-23 05:21 | XMS_ITS | Encounter Summary ---
Author Organization [facility] Address [address] [place] [address]. [place], [place] [address] [place] [address] Care Team Providers Care Silverware Buffer Name Role Phone Vernon Mercedes MD Primary Care Provider [phone] Stanislaw Rhodes MD Unavailable Unavailab le Reason for Visit * Reason Onset Date Comments Medication Problem 06/30/2016 Concerning pr adaxa Encounter Details Date Type Department Care Team (Late st Contact Info) Description 06/30/2016 Telephone [facility] [address] [place] [address] Raul Santana MD Medication Problem [...] AM CDT Katie with [facility] in [place] called to talk with Dr. Santana office. Katie states pt's ins will not cover Pradaxa however it will cover Xarelto. Katie requests call back to [phone] documented in this encounter Plan of Treatment Upcoming Encounters Date Type Department Care Team (Late st Contact Info) Description 04/25/2024 11:00 AM HOME CARE CONSULTANT Appointment [facility] [address] [place] [address] Ti Bonilla MD [address] [place] [phone] 05/23/2024 3:30 PM HOME CARE CONSULTANT Office Visit [facility] [address] [place] [address] Jyoti Escobar MD [address] [place] [address] [phone] documented as of this encounter Visit Diagnoses Not on filedocumented in this encounter Care Teams Silverware Buffer Relationship Specialty Start Date End Date Vernon Mercedes MD [address] [place] [address] PCP - General FAMILY PRACTICE 10/27/15 12/02/21 Stanislaw Rhodes MD [address] [place] [address] CARDIOVASCULAR DISEASE 10/27/15 10/24/18 documented as of this encounter
--- OUTSIDE RECORDS SUMMARY | 2024-04-23 05:21 | XMS_ITS | Encounter Summary ---
Author Organization [facility] Address [address] [place] [address]. [place], [place] [address] [place] [address] Care Team Providers Care Manager Of Quality Name Role Phone Vernon Mercedes MD Primary Care Provider [phone] Stanislaw Rhodes MD Unavailable Unavailab Evaristo Ying MD Unavailable UnavailRaul Suresh MD Unavailable Unavailabl Myah Gee NP Unavailable Unavailable Reason for Visit * Reason Onset Date Comments Results 12/29/2017 Encounter Details Date Type Department Care Team (Late st Contact Info) Description 12/29/2017 Telephone [employer] [address] [place] [address] Evaristo Allan MD Results Social [...] 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 [facility]W recommends [facility] to define coronary anatomy. Risks & benefits discussed. Questions and concerns addressed. Instructions given and letter sent, he verbalizes understanding. Scheduled 01/04/18 at 1330 documented in this encounter Plan of Treatment Upcoming Encounters Date Type Department Care Team (Late st Contact Info) Description 04/25/2024 11:00 AM TIN POT OPERATOR Appointment [facility] [address] [place] [address] Ti Bonilla MD [address] [place] [phone] 05/23/2024 3:30 PM TIN POT OPERATOR Office Visit [facility] [address] [place] [address] Jyoti Escobar MD [address] [place] [phone] documented as of this encounter Visit Diagnoses Not on filedocumented in this encounter Additional Health Concerns Infection Onset Date Last Indicated Resolved Time MRSA Comment:Negative MRSA 05/201903/11/2017 03/11/2017 10/03/2019 10:08 AM CDT documented as of this encounter Care Teams Manager Of Quality Relationship Specialty Start Date End [place] [address] PCP - General FAMILY PRACTICE 10/27/15 12/02/21 [place] [address] CARDIOVASCULAR DISEASE 10/27/15 10/24/18 [place] [address] [place] Doctor Of Audiology CARDIOVASCULAR DISEASE 08/19/16 [place] [address] CLINICAL CARDIAC ELECTROPHYSIOLOGY 06/16/17 [place] [address] CARDIOVASCULAR DISEASE 06/16/17 07/10/19 documented as of this encounter
--- OUTSIDE RECORDS SUMMARY | 2024-04-23 05:21 | XMS_ITS | Encounter Summary ---
Author Organization [facility] Address [address] [place] [address]. 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 [address] [facility] [place] [address] Ti Bonilla MD [address] [place] [phone] 05/23/2024 3:30 PM DIE FORGER Office Visit [facility] [address] [place] [address] Jyoti Escobar MD [address] [place] [address] documented as of this encounter Visit Diagnoses Not on filedocumented in this encounter Additional Health Concerns Infection Onset Date Last Indicated Resolved Time MRSA Comment:Negative MRSA 05/201903/11/2017 03/11/2017 10/03/2019 10:08 AM CDT documented as of this encounter Care Teams Marzipan Maker Relationship Specialty Start Date End Date Vernon Mercedes MD [address] [place] [address] PCP - General FAMILY PRACTICE 10/27/15 12/02/21 [place] [address] CARDIOVASCULAR DISEASE 10/27/15 10/24/18 [place] [address] [place] Malt House Supervisor CARDIOVASCULAR DISEASE 08/19/16 [place] [address] CLINICAL CARDIAC ELECTROPHYSIOLOGY 06/16/17 [place] [address] CARDIOVASCULAR DISEASE 06/16/17 07/10/19 documented as of this encounter
--- OUTSIDE RECORDS SUMMARY | 2024-04-23 05:21 | XMS_ITS | Encounter Summary ---
Author Organization [facility] Address [address] [place] [address]. [employer] [address] [place] [address] Care Team Providers Care Employment Clerk Name Role Phone Vernon Mercedes MD Primary Care Provider [phone] Stanislaw Rhodes MD Unavailable Unavailab Evaristo Ying MD Unavailable UnavailRaul Suresh MD Unavailable Unavailabl Myah Gee NP Unavailable Unavailable Reason for Visit * Reason Onset Date Comments Letter 08/18/2017 Final Letter Encounter Details Date Type Department Care Team (Late st Contact Info) Description 08/18/2017 Telephone [facility] [address] [place] [address] Raul Santana MD Letter (Final [...] 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 [address] [place] [address] Ti Bonilla MD [address] [place] [phone] 05/23/2024 3:30 PM COMPONENT OVERHAUL OPERATOR Office Visit [facility] [address] [place] [address] Jyoti Escobar MD [address] [place] [address] [phone] documented as of this encounter Visit Diagnoses Not on filedocumented in this encounter Additional Health Concerns Infection Onset Date Last Indicated Resolved Time MRSA Comment:Negative MRSA 05/201903/11/2017 03/11/2017 10/03/2019 10:08 AM CDT documented as of this encounter Care Teams Employment Clerk Relationship Specialty Start Date End Date Vernon Mercedes MD [address] [place] [address] PCP - General FAMILY PRACTICE 10/27/15 12/02/21 [place] [address] CARDIOVASCULAR DISEASE 10/27/15 10/24/18 [place] [address] [place] Certified Lactation Counselor CARDIOVASCULAR DISEASE 08/19/16 [place] [address] CLINICAL CARDIAC ELECTROPHYSIOLOGY 06/16/17 Myah Handley [place] [address] CARDIOVASCULAR DISEASE 06/16/17 07/10/19 documented as of this encounter
--- OUTSIDE RECORDS SUMMARY | 2024-04-23 05:21 | XMS_ITS | Encounter Summary ---
Author Organization [facility] Address [address] [place] [address]. [place] [address] [place] [address] Care Team Providers Care Passenger Solicitor Name Role Phone Vernon Mercedes MD Primary Care Provider [phone] Stanislaw Rhodes MD Unavailable Unavailab le Reason for Visit * Reason Onset Date Comments Request Note (Return To Work) 05/21/2016 Pt needs return to work letter; he is there today and had his procedure was on Tuesday. 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 Faxed to Pt work today. PMENT VALIDATION ENGINEER documented in this encounter Plan of Treatment Upcoming Encounters Date Type Department Care Team (Late st Contact Info) Description 04/25/2024 11:00 AM EQUIPMENT VALIDATION ENGINEER Appointment [facility] [address] [place] [address] Ti Bonilla MD [address] [place] [phone] 05/23/2024 3:30 PM EQUIPMENT VALIDATION ENGINEER Office Visit [facility] [address] [place] [address] Jyoti Escobar MD [address] [place] [phone] documented as of this encounter Visit Diagnoses Not on filedocumented in this encounter Care Teams Passenger Solicitor Relationship Specialty Start Date End Date Vernon Mercedes MD [address] [place] [address] PCP - General FAMILY PRACTICE 10/27/15 12/02/21 Stanilsaw Rhodes MD [address] [place] [address] CARDIOVASCULAR DISEASE 10/27/15 10/24/18 documented as of this encounter
--- OUTSIDE RECORDS SUMMARY | 2024-04-23 05:21 | XMS_ITS | Encounter Summary ---
Author Organization [facility] Address [address] [place] [address]. [place] [address] Care Team Providers Care Travel Registered Nurse Icu Name Role Phone Vernon Mercedes MD Primary Care Provider [phone] Stanislaw Rhodes MD Unavailable Unavailab Elza Ying MD Unavailable UnavailRaul Suresh MD Unavailable Unavailabl Myah Gee NP Unavailable Unavailable Encounter Details Date Type Department Care Team (Late st Contact Info) Description 10/27/2016 Abstract [facility] [address] [place] [address] Danny Steiner MD [address] [place], [place] [phone] Social History Tobacco Use Types Packs/Day Years [...] Amoxicillin-Pot Clavulanate 875-125 MG Oral Tablet; Therapy: 63Rte1373 to Recorded 2. Atenolol TABS; Therapy: (Recorded:83Wju4211) to Recorded 3. Atorvastatin Calcium 40 MG Oral Tablet; Therapy: 26Jun2014 to Recorded 4. HumaLOG 100 UNIT/ML Subcutaneous Solution; Therapy: 65Kns5092 to Recorded 5. Hydrocodone-Acetaminophen 5-325 MG Oral Tablet; Therapy: 19Jun2014 to Recorded 6. Hydrocodone-Acetaminophen 7.5-325 MG Oral Tablet ([place]); 1 q 6 hrs prn pain; Therapy: 65Bqc6229 to (Last Rx:21Jan2015) Ordered 7. Hydrocodone-Acetaminophen 7.5-325 MG Oral Tablet; TAKE 1 TABLET EVERY 6 HOURS NEEDED; Therapy: 69Aeb8840 to (Evaluate:29Jan2015); Last Rx:58Vtd5627 Ordered 8. Levemir 100 UNIT/ML Subcutaneous Solution; Therapy: (Recorded:17Ftm7234) to Recorded 9. MetFORMIN HCl TABS; Therapy: (Recorded:62Nzz7046) to Recorded 10. MethylPREDNISolone 4 MG Oral Tablet Therapy Pack (Medrol); as directed; Therapy: 00Mju7660 to (Last Rx:12Cfe5361) Requested for: 73Mby3823 Ordered 11. MethylPREDNISolone 4 MG Oral Tablet Therapy Pack (Medrol); as directed; Therapy: 42Qaj0819 to (Last Rx:11Fry2390) Requested for: 36Gyq6851 Ordered 12. Metoprolol Succinate ER 50 MG Oral Tablet Extended Release 24 Hour; Therapy: 13Uhe7394 to Recorded 13. Naprosyn TABS (Naproxen); Therapy: (Recorded:12Vat1825) to Recorded 14. NovoLOG 100 UNIT/ML Subcutaneous Solution; Therapy: 13Krx9142 to Recorded 15. Oxybutynin Chloride 5 MG Oral Tablet; Therapy: 21Jun2014 to Recorded 16. Polyethylene Glycol 3350 Oral Powder; Therapy: 15Oct2015 to Recorded 17. RaNITidine HCl TABS; Therapy: (Recorded:11Wjl8877) to Recorded 18. Spironolactone 25 MG Oral Tablet; Therapy: 24Sep2015 to Recorded 19. Sulfamethoxazole-Trimethoprim 800-160 MG Oral Tablet; Therapy: 00Cgj8599 to Recorded 20. Sure Comfort Insulin Syringe 31G X 5/16 0.3 ML Miscellaneous; Therapy: (Recorded:09Mar2016) to Recorded 21. Sure Comfort Insulin Syringe 31G X 5/16 0.3 ML Miscellaneous; Therapy: 15Oct2013 to Recorded 22. Sure Comfort Insulin Syringe 31G X 5/16 1 ML Miscellaneous; Therapy: 02Jul2014 to Recorded 23. Tamsulosin HCl - 0.4 MG Oral Capsule; Therapy: (Recorded:55Bdv3564) to Recorded 24. TraMADol HCl TABS; Therapy: (Recorded:30Ufg5160) to Recorded 25. TRUEplus Lancets 28G Miscellaneous; Therapy: 25Cgg0661 to Recorded 26. Warfarin Sodium 5 MG [...] device, implant or graft, initial encounter (996.40) (T84.159H) Plan Aftercare following knee joint replacement surgery 1. XR Knee 1 to 2 View Rt; Status:Active; Requested for:55Kbs8578; 2. XR Knee Standing Bi; Status:Active; Requested for:09Zyy5705; Aftercare following knee joint replacement surgery, Right knee pain 3. Hydrocodone-Acetaminophen 7.5-325 MG Oral Tablet ([place]); 1- 2 Q 4 - 6 HRS PRN PAIN Hypertension 4. CBC with Differential; Status:Active; Requested for:13Nyp6516; Right knee pain 5. C-Reactive Protein; Status:Active; Requested for:32Hnq5130; 6. Erythrocyte Sedimentation Rate; Status:Active; Requested for:55Ror0733; I Have provided him [place]. I have ordered some lab work to rule out infection. I have provided him a PT script. He'll return in 2 weeks. Signatures Electronically signed by : Danny Steiner M.D.; Nov 01 2016 9:17AM HOMEMAKING REHABILITATION CONSULTANT (Author) documented in this encounter Plan of Treatment Upcoming Encounters Date Type Department Care Team (Late st Contact Info) Description 04/25/2024 11:00 AM HOMEMAKING REHABILITATION CONSULTANT Appointment [facility] [address] [place] [address] [place] [address] Ti Bonilla MD [address] [place] [phone] 05/23/2024 3:30 PM HOMEMAKING REHABILITATION CONSULTANT Office Visit [facility] [address] [place] [address] [place] [address] Jyoti Escobar MD [address] [place] [phone] documented as of this encounter Procedures Procedure [...] EPIC CONVERSION Comment: Result Comment: PERFORMED AT [facility], [address] [place] [address]. [phone] 10/28/2016 3:25 PM CDT 10/28/2016 3:25 PM CDT Narrative [facility] TO EPIC CONVERSION - 10/29/2016 4:43 PM CDT Result Communication: No patient communication needed at this time us Danny Steiner MD LABORATORY Final Result Performing Organization Address [facility]/ZIP Co de Phone Number [facility] TO EPIC CONVERSION * (ABNORMAL) SED RATE, ERYTHROCYTE (ESR) (10/28/2016 3:25 PM CDT) Pathologist [facility] ESR 34(H) 0 - 20 MM/HR [facility] [...] PM CDT Narrative 10/27/2016 6:10 PM CDT [facility] ?? [facility] ?? [place], [place] ? Patient Name: ELZA MCKEON Date of : 1960 ?? Med Rec #: [id number] ??Age/Sex: 56/M ?Pt. Location: ORTHO ?? Attending [...] Procedure Note Stephani Luz MD - 02/09/2018 [place] [address] [employer] [place], [place] Patient Name: ELZA MCKEON Date of : 1960 Med Rec #: [id number] Age/Sex: 56/M Pt. Location: ORTHO Attending Provider: DANNY STEINER MD (TRACY) Ordering Provider: DANNY STEINER MD (TRACY) Study Date Order Number Procedure 10/27/16 [id number] XR Knee 1 to 2 Views Rt [...] PM CDT Narrative 10/27/2016 6:10 PM CDT [facility] ?? [employer] ?? [place], [place] ? Patient Name: ELZA MCKEON Date of : 1960 ?? Med Rec #: [id number] ??Age/Sex: 56/M ?Pt. Location: ORTHO ?? Attending [...] Procedure Note Stephani Luz MD - 02/08/[address] Patient Name: ELZA MCKEON Date of : 1960 Med Rec #: [id number] Age/Sex: 56/M Pt. Location: ORTHO Attending Provider: [...] documented as of this encounter Care Teams Travel Registered Nurse Icu Relationship Specialty Start Date End [place] [address] PCP - General FAMILY PRACTICE 10/27/15 12/02/21 [place] [address] CARDIOVASCULAR DISEASE 10/27/15 10/24/18 [place] [address] [employer] Associate CARDIOVASCULAR DISEASE 08/19/16 Raul [place] [address] [address] CLINICAL CARDIAC ELECTROPHYSIOLOGY 06/16/17 [place] [address] CARDIOVASCULAR DISEASE 06/16/17 07/10/19 documented as of this encounter
--- OUTSIDE RECORDS SUMMARY | 2024-04-23 05:21 | XMS_ITS | Encounter Summary ---
Author Organization [facility] Address [address] [place] [address]. [place], [place] [address] [place] [address] Care Team Providers Care Hospice Coordinator Name Role Phone Vernon Mercedes MD Primary Care Provider [phone] Stanislaw Rhodes MD Unavailable Unavailab Evaristo Ying MD Unavailable Unavailabl e Encounter Details Date Type Department Care Team (Late Contact Info) Description 05/20/2016 Orders Only [place] [address] , Generic Conversion, Social History Tobacco Use [...] (Late Contact Info) Description 04/25/2024 11:00 AM REGISTRAR ASSISTANT Appointment [facility] [place] [address] Ti Bonilla MD [address] [place] [phone] 05/23/2024 3:30 PM REGISTRAR ASSISTANT Office Visit [facility] [place] [address] Jyoti Escobar MD [address] [place], [place] [address] documented as of this encounter Procedures Procedure Name Priority Date/Time Associated Diagnosis Comments BASIC METABOLIC PANEL TIMED 05/20/2016 5:14 AM REGISTRAR ASSISTANT documented in this encounter Results * (ABNORMAL) BASIC METABOLIC PANEL (05/20/2016 5:14 AM REGISTRAR ASSISTANT) SODIUM S/P/B 135 135 - 147 MMOL/L 05/20/2016 6:01 AM [facility] POTASSIUM S/P/B 4.0 3.5 - 5.0 MMOL/L 05/20/2016 6:01 AM [facility] CHLORIDE S/P/B 102 98 - 107 MMOL/L 05/20/2016 6:01 AM [facility] CO2 25.8 22 - 29 MMOL/L 05/20/2016 6:01 AM [facility] GLUCOSE 180(H) 70 - 109 MG/DL 05/20/2016 6:01 AM [facility] BUN 13 8 - 26 MG/DL 05/20/2016 6:01 AM [facility] CREATININE S/P/B 0.86 0.70 - 1.30 MG/DL 05/20/2016 6:01 AM [facility] CALCIUM S/P/B 8.9 8.4 - 10.2 MG/DL 05/20/2016 6:01 AM [facility] EGFR NON-AFR. AMER. 92 >60 ML/MIN/1.7 3 M2 05/20/2016 6:01 AM [facility] EGFR AFR. AMER. 111 >60 ML/MIN/1.7 3 M2 05/20/2016 6:01 AM [facility] ANION GAP 7.2 MMOL/L 05/20/2016 6:01 AM REGISTRAR ASSISTANT [facility] OSMOLALITY (CALC) 275 MOSM/KG 05/20/2016 6:01 AM REGISTRAR ASSISTANT [facility] PLASMA SPECIMEN / Unknown 05/20/2016 5:14 AM REGISTRAR ASSISTANT 05/20/2016 5:26 AM REGISTRAR ASSISTANT us Generic Conversion Md [facility] Final R esult [facility] [place] [address], [id number] documented in this encounter Visit Diagnoses Not on filedocumented in this encounter Additional Health Concerns Infection Onset Date Last Indicated Resolved Time MRSA Comment:Negative MRSA 05/201903/11/2017 03/11/2017 10/03/2019 10:08 AM CDT documented as of this encounter Care Teams Hospice Coordinator Relationship Specialty Start Date End Date Vernon Mercedes MD [address] [place] [address] PCP - General FAMILY PRACTICE 10/27/15 12/02/21 Stanislaw Rhodes MD [address] [place] [address] CARDIOVASCULAR DISEASE 10/27/15 10/24/18 Evaristo Allan MD [address] [place] [address] [place] Compressed Yeast Supervisor CARDIOVASCULAR DISEASE 08/19/16 documented as of this encounter
--- OUTSIDE RECORDS SUMMARY | 2024-04-23 05:21 | XMS_ITS | Encounter Summary ---
Author Organization [facility] Address [address] [place] [address]. [place], [place] [address] [place] [address] Care Team Providers Care Maternity Nurse Name Role Phone Vernon Mercedes MD Primary Care Provider [phone] Stanislaw Rhodes MD Unavailable Unavailab Evaristo Ying MD Unavailable Unavailabl Raul Duran MD Unavailable UnavailMyah Elena NP Unavailable Unavailable Deven Cleary MD Unavailable Unavailable Danny Blackwell MD Unavailable [phone] Gayle Arce SHERIFF DEPUTY, VERIFYING SPECIALIST-C Unavailable [phone] Ti Bonilla MD Primary Care Provider [phone] Mendel Shah DPM Unavailable [phone] Jyoti Escobar MD Unavailable [phone] Encounter Details Date Type Department Care Team (Late st Contact Info) Description 03/21/2018 Abstract [facility] [address] [place] [address] Deven Cleary MD Social History [...] Contact Info) Description 04/25/2024 11:00 AM CLAIMS INVESTIGATOR Appointment [facility] [address] [place] [address] [place] [address] Ti Bonilla MD [address] [place] [address] 05/23/2024 3:30 PM CLAIMS INVESTIGATOR Office Visit [facility] [address] [facility] [place] [address] Jyoti Escobar MD [address] [place] [address] documented as of this encounter Procedures Procedure Name Priority Date/Time Associated Diagnosis Comments BASIC METABOLIC PANEL Routine 03/20/2018 4:09 PM CLAIMS INVESTIGATOR CBC, AUTO, NO DIFF Routine 03/20/2018 4: 09 PM CLAIMS INVESTIGATOR documented in this encounter Results * BASIC METABOLIC PANEL (03/20/2018 4:09 PM CLAIMS INVESTIGATOR) SODIUM S/P/B 135 POTASSIUM S/P/B 4.1 CO2 28 CHLORIDE S/P/B 97 GLUCOSE 518 mg/dL CALCIUM S/P/B 9.1 BUN 20 CREATININE S/P/B 1.12 0.7 - 1.3 EGFR NON-AFR. AMER. 71 <=90 03/20/2018 4:09 PM CLAIMS INVESTIGATOR [facility] Doc [facility] LABORATORY Final Result * CBC, AUTO, NO DIFF (03/20/2018 4:09 PM CLAIMS INVESTIGATOR) WBC 7.0 RBC 4.55 HGB 13.0 HCT 39.3 MCV 86 MCH 28.6 MCHC 13.1 RDW 13.1 PLT 255 03/20/2018 4:09 PM CLAIMS INVESTIGATOR us Doc [facility] LABORATORY Final Result documented in this encounter Visit Diagnoses Not on filedocumented in this encounter Additional Health Concerns Infection Onset Date Last Indicated Resolved Time MRSA Comment:Negative MRSA 05/201903/11/2017 03/11/2017 10/03/2019 10:08 AM CDT COVID-19 Rule Out 10/12/2019 10/12/2019 10/13/2019 9:43 PM CDT COVID-19 Rule Out 04/16/2021 04/16/2021 04/16/2021 12:50 PM CLAIMS INVESTIGATOR COVID-19 Confirmed 04/16/2021 04/16/2021 12:32 AM CLAIMS INVESTIGATOR COVID-19 Rule Out 05/23/2021 05/23/2021 05/25/2021 3:02 PM CLAIMS INVESTIGATOR COVID-19 Rule Out 05/25/2021 05/25/2021 05/26/2021 3:50 AM CLAIMS INVESTIGATOR COVID-19 Rule Out 08/31/2021 08/31/2021 09/01/2021 8:03 PM CDT COVID-19 Rule Out 11/14/2021 11/14/2021 11/14/2021 6:17 PM CDT documented as of this encounter Care Teams Maternity Nurse Relationship Specialty Start Date End Date Vernon Mercedes MD [address] [place] [address] PCP - General FAMILY PRACTICE 10/27/15 12/02/21 Ti Bonilla MD [address] [place] [phone] PCP - General FAMILY PRACTICE 12/03/21 Stanislaw Rhodes MD [address] [place] [address] CARDIOVASCULAR DISEASE 10/27/15 10/24/18 Evaristo Allan MD [address] [place] [address] [place] [employer] Processor CARDIOVASCULAR DISEASE 08/19/16 Raul Santana MD [address] [place] [address] CLINICAL CARDIAC ELECTROPHYSIOLOGY 06/16/17 Myah Handley NP [address] [place] [address] CARDIOVASCULAR DISEASE 06/16/17 07/10/19 Deven Cleary MD [address] [place] [address] Legal Instructor INTERVENTIONAL CARDIOLOGY 03/21/18 10/24/18 Danny Blackwell MD [address] [place] [address] ORTHOPAEDIC SURGERY 05/01/19 Gayle Arce, SHERIFF DEPUTY, VERIFYING SPECIALIST-C [address] [place] [phone] NURSE PRACTITIONER 03/03/20 Mendel Shah DPM [address] [place] [address] Consulting Physician PODIATRY/SURGERY 06/27/23 06/26/24 Jyoti Escobar MD [address] [place] [phone] INTERVENTIONAL CARDIOLOGY 12/27/23 documented as of this encounter
--- OUTSIDE RECORDS SUMMARY | 2024-04-23 05:21 | XMS_ITS | Encounter Summary ---
Author Organization [facility] Address [address] [place] [address]. [place], [place] [address] [place] [address] Care Team Providers Care Human Resources Advisor Name Role Phone Vernon Mercedes MD Primary Care Provider [phone] Stanislaw Rhodes MD Unavailable Unavailab Evaristo Ying MD Unavailable UnavailRaul Suresh MD Unavailable UnavailMyah Elena NP Unavailable Unavailable Deven Cleary MD Unavailable Unavailable Encounter Details Date Type Department Care Team (Late st Contact Info) Description 04/28/[address] 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 [address] [place] [address] Ti Bonilla MD [address] [place] [address] 05/23/2024 3:30 PM DIGITAL PRINTER OPERATOR Office Visit [facility] [address] [place] [address] Jyoti Escobar MD [address] [place] [address] documented as of this encounter Visit Diagnoses Not on filedocumented in this encounter Additional Health Concerns Infection Onset Date Last Indicated Resolved Time MRSA Comment:Negative MRSA 05/201903/11/2017 03/11/2017 10/03/2019 10:08 AM CDT documented as of this encounter Care Teams Human Resources Advisor Relationship Specialty Start Date End Date Vernon Mercedes MD [address] [place] [address] PCP - General FAMILY PRACTICE 10/27/15 12/02/21 Stanislaw Rhodes MD [address] [place] [address] CARDIOVASCULAR DISEASE 10/27/15 10/24/18 [place] [address] [place] Metabolic Specialist CARDIOVASCULAR DISEASE 08/19/16 [place] [address] CLINICAL CARDIAC ELECTROPHYSIOLOGY 06/16/17 [place] [address] CARDIOVASCULAR DISEASE 06/16/17 07/10/19 [place] [address] Mingler Operator INTERVENTIONAL CARDIOLOGY 03/21/18 10/24/18 documented as of this encounter
--- OUTSIDE RECORDS SUMMARY | 2024-04-23 05:21 | XMS_ITS | Encounter Summary ---
Author Organization [facility] Address [address] [place] [address]. [place] [address] [place] [address] Care Team Providers Care Nut Grinder Name Role Phone Vernon Mercedes MD Primary Care Provider [phone] Stanislaw Rhodes MD Unavailable Unavailab Evaristo Ying MD Unavailable Unavailabl Raul Duran MD Unavailable Unavailabl Myah Gee NP Unavailable Unavailable Encounter Details Date Type Department Care Team (Late Contact Info) Description 12/29/2017 Orders Only [facility] [address] [place] [address] Marcelle Madden RN Social History [...] (Late Contact Info) Description 04/25/2024 11:00 AM TEST DEVELOPMENT ENGINEER [facility]ointment [facility] [address] [facility] [place] [address] Ti Bonilla MD [address] [place] [address] 05/23/2024 3:30 PM TEST DEVELOPMENT ENGINEER [facility] [address] [place] [address] Jyoti Escobar MD [address] [place] [address] documented as of this encounter Visit Diagnoses Not on filedocumented in this encounter Additional Health Concerns Infection Onset Date Last Indicated Resolved Time MRSA Comment:Negative MRSA 05/201903/11/2017 03/11/2017 10/03/2019 10:08 AM CDT documented as of this encounter Care Teams Nut Grinder Relationship Specialty Start Date End Date Vernon Mercedes MD [address] [place] [address] PCP - General FAMILY PRACTICE 10/27/15 12/02/21 [place] [address] CARDIOVASCULAR DISEASE 10/27/15 10/24/18 [place] [address] [place] Dry Drug Worker CARDIOVASCULAR DISEASE 08/19/16 [place] [address] CLINICAL CARDIAC ELECTROPHYSIOLOGY 06/16/17 [place] [address] CARDIOVASCULAR DISEASE 06/16/17 07/10/19 documented as of this encounter
--- OUTSIDE RECORDS SUMMARY | 2024-04-23 05:21 | XMS_ITS | Encounter Summary ---
Author Organization [facility] Address [address] [place] [address]. [place], [place] [address] [place] [address] Care Team Providers Care Director Medical Safety Name Role Phone Vernon Mercedes MD Primary Care Provider [phone] Stanislaw Rhodes MD Unavailable Unavailab Evaristo Ying MD Unavailable Unavailabl e Reason for Visit * Reason Onset Date Comments Medication Question 12/29/2016 asking to ho ld pradaxa 7 days prior to colonoscopy Encounter Details Date Type Department Care Team (Late st Contact Info) Description 12/29/2016 Telephone [facility] [address] [place] [address] Raul Santana MD Medication Question [...] 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 I informed her that if the doctor feels the medication needs to be held longer than therecommended time then he should drug counselor the patient that they may be [...] 01/13/17. Dr. Feliz off service, will request educational institution curator office, Dr. Haque To manage question, please call Soheila at [phone] documented in this encounter Plan of Treatment Upcoming Encounters Date Type Department Care Team (Late st Contact Info) Description 04/25/2024 11:00 AM CORE CUTTER AND REAMER Appointment [facility] [address] [place] [address] Ti Bonilla MD [address] [place] [address] 05/23/2024 3:30 PM CORE CUTTER AND REAMER Office Visit [facility] [address] [place] [phone] Jyoti Escobar MD [address] [place] [phone] documented as of this encounter Visit Diagnoses Not on filedocumented in this encounter Care Teams Director Medical Safety Relationship Specialty Start Date End Date Vernon Mercedes MD [address] [place] [phone] PCP - General FAMILY PRACTICE 10/27/15 12/02/21 Stanislaw Rhodes MD [address] [place] [address] CARDIOVASCULAR DISEASE 10/27/15 10/24/18 Evaristo Allan MD [address] [place] [address] [place] Respite Worker CARDIOVASCULAR DISEASE 08/19/16 documented as of this encounter
--- OUTSIDE RECORDS SUMMARY | 2024-04-23 05:21 | XMS_ITS | Encounter Summary ---
Author Organization [facility] Address [address] [place] [address]. [place], [place] [address] [place] [address] Care Team Providers Care Mailing Machine Assistant Name Role Phone Vernon Mercedes MD Primary Care Provider [phone] Stanislaw Rhodes MD Unavailable Unavailab Evaristo Ying MD Unavailable UnavailRaul Suresh MD Unavailable UnavailMyah Elena NP Unavailable Unavailable Deven Cleary MD Unavailable Unavailable Encounter Details Date Type Department Care Team (Late Contact Info) Description 10/28/2016 Abstract [facility] [address] [place] [address] Danny Blackwell MD [address] [place] [address] Social History Tobacco Use Types [...] 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 Not on file documented as of this encounter Plan of Treatment Upcoming Encounters Date Type Department Care Team (Late Contact Info) Description 04/25/2024 11:00 AM BANK CREDIT CARD COLLECTION CLERK Appointment [facility] [address] [place] [address] Ti Bonilla MD [address] [place] [phone] 05/23/2024 3:30 PM BANK CREDIT CARD COLLECTION CLERK Office Visit [facility] [place] [address] Jyoti Escobar MD [address] [place] [address] documented as of this encounter Procedures Procedure Name Priority Date/Time Associated Diagnosis Comments SED RATE, ERYTHROCYTE (ESR) Routine 10/28/2016 3:25 PM CDT C-REACTIVE PROTEIN Routine 10/28/2016 3: 25 PM CDT CBC W/DIFF AUTOMATED Routine 10/28/2016 3:25 PM CDT documented in this encounter Results * (ABNORMAL) SED RATE, ERYTHROCYTE (ESR) (10/28/2016 3:25 PM CDT) ESR 34(H) 0 - 20 MM/HR 10/28/2016 4:18 PM CDT [facility] Comment:NOTE: ANEMIA, IF PRE SENT, MAY CAUSE AN ELEVATED SEDIMENTATION RATE. WHOLE BLOOD SPECIMEN / Unknown 10/28/2016 3:25 PM CDT 10/28/2016 4:13 PM CDT us Generic Conversion Md [facility] Final R esult [facility] Formerly [facility] [place] [address], * C-REACTIVE PROTEIN (10/28/2016 3:25 PM CDT) Pathologist [facility] C-REACTIVE PROTEIN 0.40 <0.6 mg/dL 10/29/2016 4:43 PM CDT [facility] SERUM OR PLASMA SPECIMEN / Unknown 10/28/2016 3:25 PM CDT 10/28/2016 4:13 PM CDT us Generic Conversion Md [facility] Final R esult [facility] [address] [place] [address], [id number] * (ABNORMAL) CBC W/DIFF AUTOMATED (10/28/2016 3:25 PM CDT) WBC 7.0 4.5 - 10.8 x10'3/uL 10/28/2016 4:14 PM CDT [facility] RBC 4.37(L) 4.50 - 6.10 x10'6/uL 10/28/2016 4:14 PM CDT [facility] HGB 12.6(L) 13.0 - 18.0 G/DL 10/28/2016 4:14 PM CDT [facility] HCT 37.7 37.0 - 52.0 % 10/28/2016 4:14 PM CDT [facility] MCV 86.3 78.0 - 100.0 FL 10/28/2016 4:14 PM CDT [facility] MCH 28.8 27.0 - 31.0 PG 10/28/2016 4:14 PM CDT [facility] MCHC 33.4 33.0 - 36.0 G/DL 10/28/2016 4:14 PM CDT [facility] RDW 13.5 11.5 - 14.5 % 10/28/2016 4:14 PM CDT [facility] PLT 225 150 - 350 x10'3/uL 10/28/2016 4:14 PM CDT [facility] MPV 12.6(H) 7.4 - 10.4 FL 10/28/2016 4:14 PM CDT [facility] SEG NEUTROPHILS 60.3 % 7 4:14 PM CDT [facility] LYMPHOCYTES 25.4 % 10/28/2016 4:14 PM CDT [facility] MONOCYTES 12.1 % 10/28/2016 4:14 PM CDT [facility] EOSINOPHILS 1.1 % 10/28/2016 4:14 PM CDT [facility] BASOPHILS 0.7 % 10/28/2016 4:14 PM CDT [facility] IMMATURE GRANS % 0.4 % 10/29/19 17 4:14 PM CDT [facility] NRBC 0.0 % 10/28/2016 4:14 PM CDT [facility] ABS. NEUTROPHILS 4.23 1.60 - 8.30 x10'3/uL 10/28/2016 4:14 PM CDT [facility] ABS. LYMPHOCYTES 1.78 0.80 - 4.70 x10'3/uL 10/28/2016 4:14 PM CDT [facility] ABS. MONOCYTES 0.85 0.00 - 1.50 x10'3/uL 10/28/2016 4:14 PM CDT [facility] ABS. EOSINOPHILS 0.08 0.00 - 0.40 x10'3/uL 10/28/2016 4:14 PM CDT [facility] ABS. BASOPHILS 0.05 0.00 - 0.20 x10'3/uL 10/28/2016 4:14 PM CDT [facility] ABS. IMMATURE GRANULOCYTES 0.03 0.00 - 0.03 x10'3/uL 10/28/2016 4:14 PM CDT [facility] ABS. NUCLEATED RBC'S 0.00 0.00 x10'3/uL 10/28/2016 4:14 PM CDT [facility] OTHER (type in comments) 10/28/2016 3:25 PM CDT 10/28/2016 4:13 PM CDT Comment:WHOLE BLOOD SAMPLE us Generic Conversion Md [facility] Final R esult [facility] [address] [employer] [place] [address], documented in this encounter Visit Diagnoses Diagnosis Essential (primary) hypertension Unspecified essential hypertension documented in this encounter Additional Health Concerns Infection Onset Date Last Indicated Resolved Time MRSA Comment:Negative MRSA 05/201903/11/2017 03/11/2017 10/03/2019 10:08 AM CDT documented as of this encounter Care Teams Mailing Machine Assistant Relationship Specialty Start Date End Date Vernon Mercedes MD [address] [place] [address] PCP - General FAMILY PRACTICE 10/27/15 12/02/21 [place]is[place] [phone] CARDIOVASCULAR DISEASE 10/27/15 10/24/18 [place] [address] Saint Bernard Banjo Repairer CARDIOVASCULAR DISEASE 08/19/16 Raul [place] [phone] CLINICAL CARDIAC ELECTROPHYSIOLOGY 06/16/17 Myah Handley, CASE TECH[place] [phone] CARDIOVASCULAR DISEASE 06/16/17 07/10/19 [place] [address] Affirmative Action Officer INTERVENTIONAL CARDIOLOGY 03/21/18 10/24/18 documented as of this encounter
--- OUTSIDE RECORDS SUMMARY | 2024-04-23 05:21 | XMS_ITS | Encounter Summary ---
Author Organization [facility] Address [address] [place] [address]. [place], [place] [address] [place] [address] Care Team Providers Care Behavioral Intervention Specialist Name Role Phone Vernon Mercedes MD Primary Care Provider [phone] Stanislaw Rhodes MD Unavailable Unavailab Evaristo Ying MD Unavailable UnavailRaul Suresh MD Unavailable Unavailabl Myah Gee NP Unavailable Unavailable Reason for Visit * Reason Onset Date Comments Follow Up Call 01/06/2018 Encounter Details Date Type Department Care Team (Late st Contact Info) Description 01/06/2018 Telephone [facility] [address] [place] [address] Evaristo Allan MD Follow Up [...] 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 [address] [place] [address] Ti Bonilla MD [address] [place] [phone] 05/23/2024 3:30 PM OXYACETYLENE CUTTER Office Visit [facility] [address] [place] [address] Jyoti Escobar MD [address] [place] [phone] documented as of this encounter Visit Diagnoses Not on filedocumented in this encounter Additional Health Concerns Infection Onset Date Last Indicated Resolved Time MRSA Comment:Negative MRSA 05/201903/11/2017 03/11/2017 10/03/2019 10:08 AM CDT documented as of this encounter Care Teams Behavioral Intervention Specialist Relationship Specialty Start Date End Date Vernon Mercedes MD [address] [place] [address] PCP - General FAMILY PRACTICE 10/27/15 12/02/21 Stanislaw Rhodes MD [address] [place] [address] CARDIOVASCULAR DISEASE 10/27/15 10/24/18 [place] [address] Dexter Application Developer Manager CARDIOVASCULAR DISEASE 08/19/16 [place] [address] CLINICAL CARDIAC ELECTROPHYSIOLOGY 06/16/17 [place] [address] CARDIOVASCULAR DISEASE 06/16/17 07/10/19 documented as of this encounter
--- OUTSIDE RECORDS SUMMARY | 2024-04-23 05:21 | XMS_ITS | Encounter Summary ---
Author Organization [facility] Address [address] [place] [address]. [place], [place] [address] [place] [address] Care Team Providers Care Liquor Commissioner Name Role Phone Vernon Mercedes MD Primary Care Provider [phone] Stanislaw Rhodes MD Unavailable Unavailab Evaristo Ying MD Unavailable UnavailRaul Suresh MD Unavailable UnavailMyah Elena NP Unavailable Unavailable Deven Cleary MD Unavailable Unavailable Danny Blackwell MD Unavailable [phone] Gayle Arce DORMITORY SUPERVISOR, GREETER-C Unavailable [phone] Ti Bonilla MD Primary Care Provider [phone] Mendel Shah DPM Unavailable [phone] Jyoti Escobar MD Unavailable [phone] Encounter Details Date Type Department Care Team (Late st Contact Info) Description 2018 Abstract [facility] [address] [place] [phone] Evaristo Allan MD Social History Tobacco Use [...] 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 [address] [place] [address] [place] [address] Ti Bonilla MD [address] [place] [phone] 05/23/2024 3:30 PM PASTRYCOOK Office Visit [facility] [address] [place] [address] Jyoti Escobar MD [address] [place] [phone] documented as of this encounter Procedures Procedure [...] Rule Out 04/16/2021 04/16/2021 04/16/2021 12:50 PM PASTRYCOOK COVID-19 Confirmed 04/16/2021 04/16/2021 12:32 AM PASTRYCOOK COVID-19 Rule Out 05/23/2021 05/23/2021 05/25/2021 3:02 PM PASTRYCOOK COVID-19 Rule Out 05/25/2021 05/25/2021 05/26/2021 3:50 AM PASTRYCOOK COVID-19 Rule Out 08/31/2021 08/31/2021 09/01/2021 8:03 PM CDT COVID-19 Rule Out 11/14/2021 11/14/2021 11/14/2021 6:17 PM CDT documented as of this encounter Care Teams Liquor Commissioner Relationship Specialty Start Date End Date Vernon Mercedes MD [address] [facility] [place] [phone] PCP - General FAMILY PRACTICE 10/27/15 12/02/21 Ti Bonilla MD [address] [place] [address] PCP - General FAMILY PRACTICE 12/03/21 Stanislaw Rhodes MD [address] [place] [address] CARDIOVASCULAR DISEASE 10/27/15 10/24/18 Evaristo Allan MD [facility] [place] [place] [address] Weston Slag Worker CARDIOVASCULAR DISEASE 08/19/16 Raul Santana MD [facility] [place] [facility] [place] [address] CLINICAL CARDIAC ELECTROPHYSIOLOGY 06/16/17 Myah Handley NP [facility] [place] [facility] [place] [address] CARDIOVASCULAR DISEASE 06/16/17 07/10/19 Deven Cleary MD [facility] [place] [facility] [place] [address] Turning Sander Tender INTERVENTIONAL CARDIOLOGY 03/21/18 10/24/18 Danny Blackwell MD [address] [place] [address] ORTHOPAEDIC SURGERY 05/01/19 Gayle Arce APRN, GREETER-C [address] [place] [address] 4P57 [place] [phone] NURSE PRACTITIONER 03/03/20 Mendel Shah DPM [address] [facility] [place] [address] Consulting Physician PODIATRY/SURGERY 06/27/23 06/26/24 Jyoti Escobar MD [address] [place] [address] INTERVENTIONAL CARDIOLOGY 12/27/23 documented as of this encounter
--- OUTSIDE RECORDS SUMMARY | 2024-04-23 05:21 | XMS_ITS | Encounter Summary ---
Author Organization [facility] Address [address] [place] [address]. [place], [place] [address] [place] [address] Care Team Providers Care Bookkeeping Clerks Supervisor Name Role Phone Vernon Delgado MD Primary Care Provider [phone] Stanislaw Rhodes MD Unavailable Unavailab Evaristo Ying MD Unavailable Unavailabl e Reason for Visit * Reason Comments Follow Up Hypertension Atrial Fibrillation Encounter Details Date Type Department Care Team (Latest Contact Info) Description 03/31/2017 9:00 AM SHIFT STACKER Office Visit [facility] [place] [address] Evaristo Allan MD Follow Up; Hypertension; Atrial [...] 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 Not on file Not on file documented as of this encounter Last Filed Vital Signs Vital Sign Reading Time Taken Comments Blood Pressure 120/66 04/01/2017 10:00 AM SHIFT STACKER Pulse 78 04/01/2017 10:00 AM SHIFT STACKER Temperature - - Respiratory Rate 16 04/01/2017 10:00 AM SHIFT STACKER Oxygen Saturation 96% 04/01/2017 10:00 AM SHIFT STACKER Inhaled Oxygen Concentration - - Weight 127 kg (280 lb) 04/01/2017 10:00 AM SHIFT STACKER Height 177.8 cm (5' 10 ) 04/01/2017 10:00 AM SHIFT STACKER Body Mass Index 40.18 04/01/2017 10:00 AM SHIFT STACKER documented in this encounter Patient Instructions * Patient Instructions* Marcelle Madden, [place] - 04/01/2017 10:27 AM SHIFT STACKER Images from the original note were not [...] much alcohol use ?? Some prescription and [id number] drugs, as well as street drugs such [...] ?? Bleeding Where can I learn more? [employer] http://www.heart.org/HEARTORG/Conditions/Arrhythmia/AboutArrhythmia/About-Arrhyt ia_[facility]_002010_Article.jsp Kids[employer] http://kidshealth.org/teen/diseases_conditions/heart/arrhythmias.html National Heart Lung and Blood [place] http://www.nhlbi.nih.gov/health/health-topics/topics/arr/ Last Reviewed Date 2015-12-25 Consumer Information [...] right for you. Copyright Copyright ?? 2017 [employer]. and its affiliates and/or licensors. All rights reserved. T STACKER T STACKER T STACKER documented in this encounter Progress Notes * Evaristo Allan MD - 03/31/2017 9:44 AM CST HISTORY OF PRESENT ILLNESS: Mr. Zelaya is seen in the [facility] today for a scheduled followup [...] should he have any questions or problems. 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 Smoking [...] unspecified hyperlipidemia type 3. 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 SARAI (obstructive sleep apnea) [place] Documentation Completed: Atrial Fibrillation Referring Provider: No ref. provider found PCP: VERNON DELGADO T STACKER documented in this encounter Plan of Treatment Upcoming Encounters Date Type Department Care Team (Late st Contact Info) Description 04/25/2024 11:00 AM SHIFT STACKER Appointment [facility] [address] [place] [address] [place] [address] Ti Bonilla MD [address] [place] [address] 05/23/2024 3:30 PM SHIFT STACKER Office Visit [facility] [address] [place] [address] Jyoti Escobar MD [address] [place] [phone] documented as of this encounter Visit Diagnoses Diagnosis Paroxysmal atrial fibrillation (CMS/HCC HHS/HCC)- Primary Atrial fibrillation Hyperlipidemia, unspecified hyperlipidemia type Essential hypertension Unspecified essential hypertension 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 SARAI (obstructive sleep apnea) Obstructive sleep apnea (adult) (pediatric) documented in this encounter Additional Health Concerns Infection Onset Date Last Indicated Resolved Time MRSA Comment:Negative MRSA 05/201903/11/2017 03/11/2017 10/03/2019 10:08 AM CDT documented as of this encounter Care Teams Bookkeeping Clerks Supervisor Relationship Specialty Start Date End Date Vernon Delgado MD [address] [place] [address] PCP - General FAMILY PRACTICE 10/27/15 12/02/21 Stanislaw Rhodes MD [address] [place] [address] CARDIOVASCULAR DISEASE 10/27/15 10/24/18 Evaristo Allan MD [address] [place] [address] Jay Enhanced Environmental Operator CARDIOVASCULAR DISEASE 08/19/16 documented as of this encounter
--- OUTSIDE RECORDS SUMMARY | 2024-04-23 05:21 | XMS_ITS | Encounter Summary ---
Author Organization [facility] Address [address] [place] [address]. 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 [address] [place] [address] Ti Bonilla MD [address] [place] [phone] 05/23/2024 3:30 PM BEER STILL RUNNER COMPOUNDER Office Visit [facility] [address] [place] [address] Jyoti Escobar MD [address] [place] [address] documented as of this encounter Procedures Procedure [...] of this encounter Care Teams Director Of Revenue Relationship Specialty Start Date End Date [place] [address] PCP - General FAMILY PRACTICE 10/27/15 12/02/21 [place] [place] [address] CARDIOVASCULAR DISEASE 10/27/15 10/24/18 Evar[place] [place] [address] [place] Gang Supervisor Pipe Lines CARDIOVASCULAR DISEASE 08/19/16 Raul [place] [address] CLINICAL CARDIAC ELECTROPHYSIOLOGY 06/16/17 [place] [address] CARDIOVASCULAR DISEASE 06/16/17 07/10/19 documented as of this encounter
--- OUTSIDE RECORDS SUMMARY | 2024-04-23 05:21 | XMS_ITS | Encounter Summary ---
Author Organization [facility] Address [address] [place] [address]. 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 [place] [place] [address] Ti Bonilla MD [address] [place] [phone] 05/23/2024 3:30 PM GANG BOSS Office Visit [facility] [place] [phone] Jyoti Escobar MD [address] [place] [address] documented as of this encounter Procedures Procedure Name Priority Date/Time Associated Diagnosis Comments ECG 12-LEAD Routine 05/20/2016 7:10 AM GANG BOSS documented in this encounter Results * ECG 12 lead (05/20/2016 7:10 AM GANG BOSS) 05/20/2016 7:10 AM GANG BOSS Narrative [facility] - 05/20/2016 8:34 AM GANG BOSS ? [facility] ? [address] [place], [place] ??[address] ? Test Date: ?2016-05-20 Pat Name: ? ELZA MCKEON ? Department: ?? 1 ? Room: ? 0582A Gender: ? M ?Van Driver: ?? sg : ?1960 ? Requested By: EVE CARRERA Order Number: [id number] ? Jose Antonio OSMAN: ?? Valeriy Florian ? Measurements Intervals ?[place] ? Rate: ? 72 ? P: ?7 IN: ? 123 ?QRS: ?20 QRSD: ? 113 ?T: ?5 QT: ? 400 ? QTc: ?438 ? Interpretive Statements SINUS RHYTHM WITH MARKED SINUS ARRHYTHMIA INCOMPLETE RIGHT BUNDLE BRANCH BLOCK BOSS Procedure Note Stephani Osman MD - 12/11/2018 [place] [address] [place] [address] Test Date: 2016-05-20 Pat Name: [facility] Department: 1 Room: 0582A Gender: M Van Driver: : 1960 Requested By: EVE CARRERA Order Number: [id number] Reading : Valeriy Florian Measurements Intervals [place] Rate: 72 P: 7 IN: 123 QRS: 20 QRSD: 113 T: 5 QT: 400 QTc: 438 Interpretive Statements SINUS RHYTHM WITH MARKED SINUS ARRHYTHMIA INCOMPLETE RIGHT BUNDLE BRANCH BLOCK BOSS us Generic Conversion Md OSM[facility] ECG ORDERABLES Final R esult [facility] documented in this encounter Visit Diagnoses Not on filedocumented in this encounter Additional Health Concerns Infection Onset Date Last Indicated Resolved Time MRSA Comment:Negative MRSA 05/201903/11/2017 03/11/2017 10/03/2019 10:08 AM CDT documented as of this encounter Care Teams Waiter/Waitress Cabin Class Relationship Specialty Start Date End Date Vernon Mercedes MD [address] [place] [address] PCP - General FAMILY PRACTICE 10/27/15 12/02/21 Stanislaw Rhodes MD [address] [place] [address] CARDIOVASCULAR DISEASE 10/27/15 10/24/18 Elza Allan MD [address] [place] [address] [place] Tele[employer] Professional CARDIOVASCULAR DISEASE 08/19/16 Eve Carrera MD [address] [place] [address] CLINICAL CARDIAC ELECTROPHYSIOLOGY 06/16/17 Myah Handley NP [address] [place] [address] CARDIOVASCULAR DISEASE 06/16/17 07/10/19 documented as of this encounter
--- OUTSIDE RECORDS SUMMARY | 2024-04-23 05:21 | XMS_ITS | Encounter Summary ---
Author Organization [facility] Address [address] [place] [address]. [place], [place] [address] [place] [address] Care Team Providers Care Clinical Radiologist Name Role Phone Vernon Mercedes MD Primary Care Provider [phone] Stanislaw Rhodes MD Unavailable Unavailab Evaristo Ying MD Unavailable UnavailRaul Suresh MD Unavailable Unavailabl Myah Gee NP Unavailable Unavailable Reason for Visit * Reason Onset Date Comments Medication 2018 Encounter Details Date Type Department Care Team (Late st Contact Info) Description 2018 Telephone [employer] 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 [address] [place] [address] Ti Bonilla MD [address] [place] [phone] 05/23/2024 3:30 PM SOFTWARE PACKAGER Office Visit [facility] [address] [place] [address] Jyoti Escobar MD [address] [place] [address] [phone] documented as of this encounter Visit Diagnoses Not on filedocumented in this encounter Additional Health Concerns Infection Onset Date Last Indicated Resolved Time MRSA Comment:Negative MRSA 05/201903/11/2017 03/11/2017 10/03/2019 10:08 AM CDT documented as of this encounter Care Teams Clinical Radiologist Relationship Specialty Start Date End Date Vernon Mercedes MD [address] [place] [address] PCP - General FAMILY PRACTICE 10/27/15 12/02/21 [place] [address] CARDIOVASCULAR DISEASE 10/27/15 10/24/18 [place] [address] [place] Administrative Nursing Supervisor CARDIOVASCULAR DISEASE 08/19/16 [place] [address] CLINICAL CARDIAC ELECTROPHYSIOLOGY 06/16/17 [place] [address] CARDIOVASCULAR DISEASE 06/16/17 07/10/19 documented as of this encounter
--- OUTSIDE RECORDS SUMMARY | 2024-04-23 05:21 | XMS_ITS | Encounter Summary ---
Author Organization [facility] Address [address] [place] [address]. 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 What is atrial fibrillation???--??Atrial fibrillation is [...] process is complete. This topic retrieved from [employer] on: Nov 02, 2016. Topic 52134 Version 10.0 Release: 25.3 - C25.159 ?2017??[employer].??All rights reserved. figure 1: Atrial fibrillation This drawing shows where the heart is located in the chest. In atrial fibrillation, the electrical signals that control the heartbeat are abnormal. As a result, the top two chambers of the heart (seearrows) stop pumping effectively, and blood that should move out of these chambers gets left behind. Graphic 56449 Version 3.0 figure 2: Signs of stroke The letters in the word fast help you remember the signs of stroke. If a person shows any of these signs, call an ambulance right away. In the [place] and [place], dial ??9-1-1. ?? Graphic 38704 Version 3.0 Consumer Information Use and Disclaimer [...] that is right for you.The use of [employer] content is governed by the [employer] Terms of Use. ??2017 [employer]. All rights reserved. Copyright ?2017??[employer] Inc[employer]??All rights reserved. 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 Smoking status: [...] is normal. Thought content normal. Diagnoses/Impression: 1. prison current use of anticoagulant therapy 2. Paroxysmal atrial fibrillation [place] Documentation Completed: Atrial Fibrillation Referring Provider: Vernon Delgado PCP: VERNON DELGADO documented in this encounter Plan of Treatment Upcoming Encounters Date Type Department Care Team (Late st Contact Info) Description 04/25/2024 11:00 AM ENVIRONMENTAL RESOURCE SPECIALIST Appointment [facility] [address] [place] [address] Ti Bonilla MD [address] [place] [phone] 05/23/2024 3:30 PM ENVIRONMENTAL RESOURCE SPECIALIST Office Visit [place] [facility] [address] [place] [address] Jyoti Escobar MD [address] [place] [address] documented as of this encounter Visit Diagnoses Diagnosis intermission coordinator current use of anticoagulant therapy Paroxysmal atrial fibrillation (CMS/HCC HHS/HCC) Atrial fibrillation documented in this encounter Care Teams Bottom Precipitator Operator Relationship Specialty Start Date End Date Vernon Delgado MD [address] [place] [address] PCP - General FAMILY PRACTICE 10/27/15 12/02/21 Stanislaw Rhodes MD [address] [place] [phone] CARDIOVASCULAR DISEASE 10/27/15 10/24/18 Evaristo Allan MD [address] [place] [phone] [place] [employer]ad Designer CARDIOVASCULAR DISEASE 08/19/16 documented as of this encounter
--- OUTSIDE RECORDS SUMMARY | 2024-04-23 05:21 | XMS_ITS | Encounter Summary ---
Author Organization [facility] Address [address] [place] [address]. 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 Encouraged to call with any questions. ON KEEPER documented in this encounter Plan of Treatment Upcoming Encounters Date Type Department Care Team (Late st Contact Info) Description 04/25/2024 11:00 AM SALOON KEEPER Appointment [facility] [address] [place] [address] [place] [address] Ti Bonilla MD [address] [place] [phone] 05/23/2024 3:30 PM SALOON KEEPER Office Visit [facility] [place] [address] Jyoti Escobar MD [address] [place] [address] [phone] documented as of this encounter Results * XA CORONARY INTERVENTION (03/24/2018 8:43 AM SALOON KEEPER) Anatomical Region Laterality Modality Cardiac Kiln Worker 03/24/2018 8:00 AM SALOON KEEPER us Deven Cleary MD ELECTRONEURODIAGNOSTIC TECHNICIAN Final Result documented in this encounter Visit Diagnoses Diagnosis 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 coronary artery Pre-procedure lab exam Pre-procedural laboratory examination documented in this encounter Additional Health Concerns Infection Onset Date Last Indicated Resolved Time MRSA Comment:Negative MRSA 05/201903/11/2017 03/11/2017 10/03/2019 10:08 AM CDT documented as of this encounter Care Teams Policy Change Clerks Supervisor Relationship Specialty Start Date End Date Vernon Mercedes MD [address] [place] [phone] PCP - General FAMILY PRACTICE 10/27/15 12/02/21 Stanislaw Rhodes MD [address] [place] [phone] CARDIOVASCULAR DISEASE 10/27/15 10/24/18 Evaristo Allan MD [address] [place] [phone] [place] CARDIOVASCULAR DISEASE 08/19/16 Raul Santana MD [address] [place] [phone] CLINICAL CARDIAC ELECTROPHYSIOLOGY 06/16/17 Myah Handley NP [address] [place] [address] [place] [phone] CARDIOVASCULAR DISEASE 06/16/17 07/10/19 documented as of this encounter
--- OUTSIDE RECORDS SUMMARY | 2024-04-23 05:21 | XMS_ITS | Encounter Summary ---
Author Organization [facility] Address [address] [place] [address]. 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 [place] [address] Ti Bonilla MD [address] [place] [phone] 05/23/2024 3:30 PM CARRIER ASSOCIATE Office Visit [facility] [address] Jyoti Escobar MD [address] [place] [address] documented as of this encounter Visit Diagnoses Not on filedocumented in this encounter Care Teams Mannequin Decorator Relationship Specialty Start Date End Date Vernon Mercedes MD [address] [place] [phone] PCP - General FAMILY PRACTICE 10/27/15 12/02/21 Stanislaw Rhodes MD [address] [place] [address] CARDIOVASCULAR DISEASE 10/27/15 10/24/18 documented as of this encounter
--- OUTSIDE RECORDS SUMMARY | 2024-04-23 05:21 | XMS_ITS | Encounter Summary ---
Author Organization [facility] Address [address] [place] [address]. 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 [place] [address] Ti Bonilla MD [address] [place] [phone] 05/23/2024 3:30 PM DUKEY RIDER Office Visit [facility] [address] [place] [phone] Jyoti Escobar MD [address] [place], [place] 798[address] documented as of this encounter Procedures Procedure Name Priority Date/Time Associated Diagnosis Comments POCT GLUCOSE - RAMOS DOCKED DEVICE Routine 05/20/2016 8:17 AM DUKEY RIDER documented in this encounter Results * (ABNORMAL) POCT glucose (05/20/2016 8:17 AM DUKEY RIDER) GLUCOSE POC 162(H) 70 - 109 05/20/2016 8:47 AM DUKEY RIDER [facility] ORDERS INTERFACE WHOLE BLOOD SPECIMEN / Unknown 05/20/2016 8:17 AM DUKEY RIDER 05/20/2016 8:47 AM DUKEY RIDER us Generic Conversion Md [facility] POCT ORDERABLES - DEVIC E Final Result [facility] ORDERS INTERFACE US documented in this encounter Visit Diagnoses Not on filedocumented in this encounter Additional Health Concerns Infection Onset Date Last Indicated Resolved Time MRSA Comment:Negative MRSA 05/201903/11/2017 03/11/2017 10/03/2019 10:08 AM CDT documented as of this encounter Care Teams Painter Ski Edge Relationship Specialty Start Date End Date Vernon Mercedes MD [address] [place] [phone] PCP - General FAMILY PRACTICE 10/27/15 12/02/21 [place] [place] [phone] CARDIOVASCULAR DISEASE 10/27/15 10/24/18 E[place] [address] [phone] [place] Head Start Director CARDIOVASCULAR DISEASE 08/19/16 documented as of this encounter
--- OUTSIDE RECORDS SUMMARY | 2024-04-23 05:21 | XMS_ITS | Encounter Summary ---
Author Organization [facility] Address [address] [place] [address]. 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 [place] [address] Ti Bonilla MD [address] [place] [phone] 05/23/2024 3:30 PM MOP WORKER Office Visit [facility] [address] [place] [address] Jyoti Escobar MD [address] [place] [address] documented as of this encounter Procedures Procedure Name Priority Date/Time Associated Diagnosis Comments PROTHROMBIN TIME, VENOUS TIMED 05/20/2016 5:14 AM MOP WORKER documented in this encounter Results * (ABNORMAL) PROTIME/INR, VENOUS (05/20/2016 5:14 AM MOP WORKER) PROTIME 15.5(H) 11.6 - 14.3 SEC 05/20/2016 5:39 AM MOP WORKER [facility] INR 1.2(H) 0.9 - 1.1 05/20/2016 5:39 AM MOP WORKER [facility] 05/20/2016 5:14 AM MOP WORKER 05/20/2016 5:26 AM MOP WORKER us Generic Conversion Md [facility] Final R esult [facility] [place] [address], [id number] documented in this encounter Visit Diagnoses Not on filedocumented in this encounter Additional Health Concerns Infection Onset Date Last Indicated Resolved Time MRSA Comment:Negative MRSA 05/201903/11/2017 03/11/2017 10/03/2019 10:08 AM CDT documented as of this encounter Care Teams Mobile Paint Specialist Relationship Specialty Start Date End Date Vernon Mercedes MD [address] [place] [phone] PCP - General FAMILY PRACTICE 10/27/15 12/02/21 Stanislaw Rhodes MD [address] [place] [address] CARDIOVASCULAR DISEASE 10/27/15 10/24/18 Evaristo Allan MD [address] [place] [address] [place] Sql Server Developer CARDIOVASCULAR DISEASE 08/19/16 documented as of this encounter
--- OUTSIDE RECORDS SUMMARY | 2024-04-23 05:21 | XMS_ITS | Encounter Summary ---
Author Organization [facility] Address [address] [place] [address]. [place], [place] [address] [place] [address] Care Team Providers Care Batch Plant Operator Name Role Phone Vernon Mercedes MD Primary Care Provider [phone] Stanislaw Rhodes MD Unavailable Unavailab le Reason for Referral * Imaging (Routine) - Closed Specialty Diagnoses / Procedures Referred By Contac t Referred To Contact CARDIOLOGY Diagnoses Atrial fibrillation, unspecified type ([facility]/HCC HHS/[facility]) Procedures USE ECHOCARDIOGRAM Evaristo Allan MD [facility] [address] [place] [phone] Phone: tel: fax: Referral ID Status Reason Start Date Expiration Date Visits Re quested Visits Authorized [id number] Closed 07/13/2016 08/22/2016 1 1 Encounter Details Date Type Department Care Team (Late st Contact Info) Description 07/13/2016 Orders Only [facility] [address] [place] [address] Evaristo Allan MD Social History [...] st Contact Info) Description 04/25/2024 11:00 AM CLAIM ADMINISTRATOR Appointment [facility] [address] [place] [address] Ti Bonilla MD [address] [place] [phone] 05/23/2024 3:30 PM CLAIM ADMINISTRATOR Office Visit [facility] [address] [place] [address] Jyoti Escobar MD [address] [place] [phone] documented as of this encounter Procedures Procedure Name Priority Date/Time Associated Diagnosis Comments USE ECHOCARDIOGRAM Routine 07/14/2016 Atrial fibrillation, unspecified type ([facility]) documented in this encounter Results * USE ECHOCARDIOGRAM (07/14/2016) Anatomical Region Laterality Modality Cardiac Echocardiogram Evaristo Allan MD ECHO Final Resul t documented in this encounter Visit Diagnoses Diagnosis Atrial fibrillation, unspecified type ([facility])- Primary documented in this encounter Care Teams Batch Plant Operator Relationship Specialty Start Date End Date Vernon Mercedes MD [address] [place] [phone] PCP - General FAMILY PRACTICE 10/27/15 12/02/21 Stanislaw Rhodes MD [address] [place] [address] CARDIOVASCULAR DISEASE 10/27/15 10/24/18 documented as of this encounter
--- OUTSIDE RECORDS SUMMARY | 2024-04-23 05:21 | XMS_ITS | Encounter Summary ---
Author Organization [facility] Address [address] [place] [address]. [place], [place] [address] [place] [address] Care Team Providers Care Tool And Die Repairer Name Role Phone Vernon Mercedes MD Primary Care Provider [phone] Stanislaw Rhodes MD Unavailable Unavailab Evaristo Ying MD Unavailable UnavailRaul Suresh MD Unavailable UnavailMyah Elena NP Unavailable Unavailable Deven Cleary MD Unavailable Unavailable Encounter Details Date Type Department Care Team (Late Contact Info) Description 03/05/[address] 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 [address] [place] [address] Ti Bonilla MD [address] [place] [phone] 05/23/2024 3:30 PM OFFICE SPEC Office Visit [facility] [place] [address] Jyoti Escobar MD [address] [place], [place] [phone] documented as of this encounter Procedures Procedure Name Priority Date/Time Associated Diagnosis Comments COMPREHENSIVE METABOLIC PANEL Routine 03/05/2017 9:20 AM OFFICE SPEC LIPID PANEL Routine 03/05/2017 9:20 AM OFFICE SPEC CBC W/DIFF AUTOMATED Routine 03/05/2017 9:20 AM OFFICE SPEC documented in this encounter Results * (ABNORMAL) LIPID PANEL (03/05/2017 9:20 AM OFFICE SPEC) CHOLESTEROL 122 <200 MG/DL 03/05/2017 10:32 AM OFFICE SPEC [facility] TRIGLYCERIDES 79 <150 MG/DL 03/05/2017 10:32 AM OFFICE SPEC [facility] HDL 32(L) >40 MG/DL 03/05/2017 10:32 AM OFFICE SPEC [facility] LDL (CALCULATED) 74.2 <130 MG/DL 03/05/20 17 10:32 AM OFFICE SPEC [facility] Comment: AN LDL OF <100 IS OPTIMAL; HOWEVER, ELEVATED IS DEFINED >130.BY ATP III GUIDELINES, LDL GOALS ARE DEPENDENT UPON THE PATIENT'S OTHER RISK FACTORS. CHOL/HDL RATIO 3.8 0.0 - 5.0 03/05/2017 10:32 AM OFFICE SPEC [facility] 03/05/2017 9:20 AM OFFICE SPEC 03/05/2017 9:29 AM OFFICE SPEC us Generic Conversion Md [facility] Final R esult [facility] [address] [place] [address], * (ABNORMAL) COMPREHENSIVE METABOLIC PANEL (03/05/2017 9:20 AM OFFICE SPEC) [facility] Signature GLUCOSE 340(H) 70 - 99 MG/DL 03/05/2017 9:[address] [facility] BUN 17 8 - 26 MG/DL 03/05/2017 9:[address] [facility] CREATININE S/P/B 1.01 0.72 - 1.25 MG/DL 03/05/2017 9:[address] [facility] SODIUM S/P/B 140 136 - 145 MMOL/L 03/05/2017 9:[address] [facility] POTASSIUM S/P/B 4.6 3.5 - 5.1 MMOL/L 03/05/2017 9:[address] [facility] CHLORIDE S/P/B 104 98 - 107 MMOL/L 03/05/2017 9:[address] [facility] CO2 27.0 22.0 - 29.0 MMOL/L 03/05/2017 9:[address] [facility] CALCIUM S/P/B 9.8 8.4 - 10.2 MG/DL 03/05/2017 9:[address] [facility] BILIRUBIN TOTAL S/P/B 0.4 0.2 - 1.2 MG/DL 03/05/2017 9:[address] [facility] TOTAL PROTEIN S/P/B 7.1 6.0 - 8.3 G/DL 03/05/2017 9:[address] [facility] ALBUMIN S/P/B 3.8 3.5 - 5.2 G/DL 03/05/2017 9:[address] [facility] AST 21 5 - 34 U/L 03/05/2017 9:[address] [facility] ALT 48 0 - 55 U/L 03/05/2017 9:[address] [facility] ALKALINE PHOSPHATASE S/P/B 90 50 - 136 U/L 03/05/2017 9:[address] [facility] OSMOLALITY (CALC) 294 275 - 300 MOSM/KG 03/05/2017 9:[address] [facility] A/G RATIO 1.2 1.0 - 1.6 RATIO 03/05/2017 9:[address] [facility] BUN CREATININE RATIO 16.8 12 - 20 03/05/2017 9:[address] [facility] ANION GAP 9.0 7 - 16 MMOL/L 03/05/2017 9:[address] [facility] EGFR NON-AFR. AMER. >60 >60 ML/MIN/1.7 3 M2 03/05/2017 9:[address] [facility] EGFR AFR. AMER. >60 >60 ML/MIN/1.7 3 M2 03/05/2017 9:[address] [facility] 03/05/2017 9:20 AM OFFICE SPEC 03/05/2017 9:29 AM OFFICE SPEC us Generic Conversion Md [facility] Final R esult [facility] [address] [place] [address], * (ABNORMAL) CBC W/DIFF AUTOMATED (03/05/2017 9:20 AM OFFICE SPEC) WBC 6.6 4.5 - 10.8 x10'3/uL 03/05/2017 9:[address] [facility] RBC 4.65 4.50 - 6.10 x10'6/uL 03/05/2017 9:[address] [facility] HGB 13.0 13.0 - 18.0 G/DL 03/05/2017 9:[address] [facility] HCT 40.4 37.0 - 52.0 % 03/05/2017 9:[address] [facility] MCV 86.9 78.0 - 100.0 FL 03/05/2017 9:[address] [facility] MCH 28.0 27.0 - 31.0 PG 03/05/2017 9:[address] [facility] MCHC 32.2(L) 33.0 - 36.0 G/DL 03/05/2017 9:[address] [facility] RDW 13.5 11.5 - 14.5 % 03/05/2017 9:[address] [facility] PLT 220 150 - 350 x10'3/uL 03/05/2017 9:[address] [facility] MPV 12.0(H) 7.4 - 10.4 FL 03/05/2017 9:[address] [facility] SEG NEUTROPHILS 62.5 % 7 9:[address] [facility] LYMPHOCYTES 24.2 % 03/05/2017 9:[address] [facility] MONOCYTES 11.3 % 03/05/2017 9:[address] [facility] EOSINOPHILS 0.8 % 03/05/2017 9:[address] [facility] BASOPHILS 0.9 % 03/05/2017 9:[address] [facility] IMMATURE GRANS % 0.3 % 03/05/20 17 9:[address] [facility] NRBC 0.0 % 03/05/2017 9:[address] [facility] ABS. NEUTROPHILS 4.11 1.60 - 8.30 x10'3/uL 03/05/2017 9:[address] [facility] ABS. LYMPHOCYTES 1.59 0.80 - 4.70 x10'3/uL 03/05/2017 9:[address] [facility] ABS. MONOCYTES 0.74 0.00 - 1.50 x10'3/uL 03/05/2017 9:[address] [facility] ABS. EOSINOPHILS 0.05 0.00 - 0.40 x10'3/uL 03/05/2017 9:[address] [facility] ABS. BASOPHILS 0.06 0.00 - 0.20 x10'3/uL 03/05/2017 9:[address] [facility] ABS. IMMATURE GRANULOCYTES 0.02 0.00 - 0.03 x10'3/uL 03/05/2017 9:30 AM OFFICE SPEC [facility] ABS. NUCLEATED RBC'S 0.00 0.00 x10'3/uL 03/05/2017 9:30 AM OFFICE SPEC [facility] OTHER (type in comments) 03/05/2017 9:20 AM OFFICE SPEC 03/05/2017 9:29 AM OFFICE SPEC Comment:WHOLE BLOOD SAMPLE us Generic Conversion Md [facility] Final R esult [facility] [address] [place] [address], documented in this encounter Visit Diagnoses Diagnosis Essential (primary) hypertension Unspecified essential hypertension documented in this encounter Additional Health Concerns Infection Onset Date Last Indicated Resolved Time MRSA Comment:Negative MRSA 05/201903/11/2017 03/11/2017 10/03/2019 10:08 AM CDT documented as of this encounter Care Teams Tool And Die Repairer Relationship Specialty Start Date End Date [place] [phone] PCP - General FAMILY PRACTICE 10/27/15 12/02/21 Stanis[place] [address] [place] [phone] CARDIOVASCULAR DISEASE 10/27/15 10/24/18 Evaristo [place] [address] [phone] Fowler Inset Cutter CARDIOVASCULAR DISEASE 08/19/16 Raul [place] [place] [phone] CLINICAL CARDIAC ELECTROPHYSIOLOGY 06/16/17 [place] [address] [place] [phone] CARDIOVASCULAR DISEASE 06/16/17 07/10/19 Deven [place] [address] [phone] Mop Handle Assembler INTERVENTIONAL CARDIOLOGY 03/21/18 10/24/18 documented as of this encounter
--- OUTSIDE RECORDS SUMMARY | 2024-04-23 05:21 | XMS_ITS | Encounter Summary ---
Author Organization [facility] Address [address] [place] [address]. [place], [place] [address] [place] [address] Care Team Providers Care Avionics Electronics Technician Name Role Phone Ton Mercedes MD Primary Care Provider [phone] Stanislaw Rhodes MD Unavailable Unavailab Elza Ying MD Unavailable UnavailRaul Suresh MD Unavailable Unavailabl Myah Gee NP Unavailable Unavailable Edna Cleary MD Unavailable Unavailable Reason for Referral * Procedure (Routine) - Closed Specialty Diagnoses / Procedures Referred By Charito ledbetter Referred To Contact INTERVENTIONAL CARDIOLOGY Diagnoses Coronary artery disease of [place] artery of [place] heart with stable angina pectoris (CMS/HCC) Chronic total occlusion of coronary artery Procedures XA CORONARY INTERVENTION Edna Cleary MD [address] [place] [address] [place] [address] [place] [address] Phone: tel: fax: Referral ID Status Reason Start Date Expiration Date Visits Re quested Visits Authorized [id number] Closed 03/07/2018 04/07/2019 1 1 ROLLER OPERATOR Reason for Visit * Procedure (Routine) - Closed Specialty Diagnoses / Procedures Referred By Charito ledbetter Referred To Contact INTERVENTIONAL CARDIOLOGY Diagnoses Coronary artery disease of [place] artery of [place] heart with stable angina pectoris (CMS/HCC) Chronic total occlusion of coronary artery Procedures XA CORONARY INTERVENTION Edna Cleary MD [address] [place] [address] [facility] [address] [place] [address] Phone: tel: fax: Referral ID Status Reason Start Date Expiration Date Visits Re quested Visits Authorized [id number] Closed 03/07/2018 04/07/2019 1 1 Encounter Details Date Type Department Care Team (Latest Contact Info) Description 03/24/2018 6:06 AM SIZE ROLLER OPERATOR - 03/24/2018 2:41 PM SIZE ROLLER OPERATOR Hospital Encounter [facility] Pre/Post [address] [place] [address] Edna Cleary MD Al-Rawas, Nawar Nazar Yousif, MD [address] [place] [address] Discharge Disposition: Home or Self Care (Routine [...] 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 5 oz) 03/24/2018 6:41 AM SIZE ROLLER OPERATOR Height 174 cm (5' 8.5 ) 03/24/2018 6:41 AM SIZE ROLLER OPERATOR Body Mass Index 39.24 03/24/2018 6:41 AM SIZE ROLLER OPERATOR documented in this encounter Discharge Instructions * Discharge Instructions* Sariah Nichols RN - 03/24/2018 10:28 AM SIZE ROLLER OPERATOR You may resume your metformin on 03/26/18 [...] not operate equipment, such as an ATV, production sorter, chainsaw, or motorcycle for 48 hours. 7. Notify your boiler operator helper of swelling or drainage at the site, or numbness, tingling, coldness, or cramping in hand/arm during rest or activity. Soreness is normal. Take Tylenol for pain. 8. Notify your boiler operator helper or your primary care physician if you [...] call your primary care physician or your boiler operator helper [phone]. ROLLER OPERATOR * Attachments The following attachments cannot be sent through Care Everywhere. * MODERATE SEDATION IN ADULTS DISCHARGE INSTRUCTIONS (UPPER SORBIAN) documented in this encounter Medications at Time [...] were discussed with the patient and/or family/personal guest service representative. Questions were answered and the patient/family/personal guest service representative verbalized understanding and desires to proceed. ROLLER OPERATOR Source Note - Edna Cleary MD - 03/06/2018 2:45 PM SIZE ROLLER OPERATOR Reason for Visit: No chief complaint on file. History of Present Illness: It was a pleasure to to see your patient, Elza Mckeon today in the office. He is a 58-year-old male with Patient Active Problem List Diagnosis ??? Cardiac dysrhythmia ??? Hypertension ??? Paroxysmal atrial fibrillation (HCC) ??? [facility] current use of anticoagulant therapy ??? Obstructive sleep apnea ??? Hyperlipidemia ??? Chest pain ??? Diabetes (HCC) ??? Coronary artery disease of [place] artery of [place] heart with stable angina pectoris (HCC) ??? Chronic total occlusion of [place] coronary artery He has a chronic total occlusion of the RCA. He has [place] Cardiovascular Society Class 3 angina despite his [...] the office today. As you may know, TURBO ELECTRIC OPERATOR PCI is very complex and associated with [...] interact with and impact the risks of TURBO ELECTRIC OPERATOR PCI. If any questions remain unanswered or [...] CATHETERIZATION 01/04/2018 occluded prox RCA w/well developed [id number]-mz-[id number] collaterals lvef 55-60% ??? FRACTURE SURGERY ??? [...] Not on file Occupational History ??? 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 Smoking status: Never Smoker [...] normal. Diagnoses/Impression: 1. Chronic total occlusion of [place] coronary artery 2. Coronary artery disease of [place] artery of [place] heart with stable angina pectoris (HCC) [place] Documentation Completed: Coronary Artery Disease Referring Provider: Elza Allan PCP: TON MERCEDES MD ROLLER OPERATOR documented in this encounter OR Notes * Brief Op Note - Edna Cleary MD - 03/24/2018 9:35 AM CST Images from the original note were not included. [facility] Procedure Note Elza Mckeon 1960 [facility] [id number] 03/24/2018 Pre-Op Diagnosis: I25.82 I25.118 Post-Op Diagnosis: Same Procedure: Intravascular Ultrasound and TURBO ELECTRIC OPERATOR PCI Vascular Access: Right Radial Artery and Left Radial Artery Indications: I25.118 and I25.82 Findings: Lesion 1: J-TURBO ELECTRIC OPERATOR 1 prox mid RCA 100% Successful AWE 3.5 NC PTCA IVUS 3.5 x 38 MARLIN 4.0 NC PTCA IVUS 4.0 NC PTCA 0% devonte III Complications: None Specimens: None Anesthesia: MAC Surgeon: EDNA CLEARY MD Assistants: None Estimated Blood Loss: Minimal Condition: Good Comments: none Assessment and Recommendations/Plan: Continue with Guideline Directed Medical therapy EDNA CLEARY MD Date: 03/24/2018 Time: 9:35 AM ROLLER OPERATOR documented in this encounter Plan of Treatment Upcoming Encounters Date Type Department Care Team (Late st Contact Info) Description 04/25/2024 11:00 AM SIZE ROLLER OPERATOR Appointment [facility] [address] [place] [address] [place] [address] Ti Bonilla MD [address] [place] [phone] 05/23/2024 3:30 PM SIZE ROLLER OPERATOR Office Visit [facility] [address] [place] [address] Jyoti Escobar MD [address] [place] [address] documented as of this encounter Procedures Procedure Name Priority Date/Time Associated Diagnosis Comments ECG 12-LEAD STAT 03/24/2018 10:32 AM SIZE ROLLER OPERATOR POCT GLUCOSE - RAMOS DOCKED DEVICE Routine 03/24/2018 10:05 AM SIZE ROLLER OPERATOR ACT (HMT OR LHMT) Routine 03/24/2018 9:0 9 AM SIZE ROLLER OPERATOR ACT (HMT OR LHMT) Routine 03/24/2018 8:5 8 AM SIZE ROLLER OPERATOR XA CORONARY INTERVENTION Routine 03/24/2018 8:43 AM SIZE ROLLER OPERATOR Coronary artery disease of [place] artery of [place] heart with stable angina pectoris Chronic total occlusion of coronary artery ECG 12-LEAD STAT 03/24/2018 6:45 AM SIZE ROLLER OPERATOR documented in this encounter Results * ECG 12 lead (03/24/2018 10:32 AM SIZE ROLLER OPERATOR) 03/24/2018 10:3 2 AM SIZE ROLLER OPERATOR Narrative [facility] - 03/24/2018 11:56 AM SIZE ROLLER OPERATOR ? [facility] ?[address] [place], [place] ??[address] ? Test Date: ?2018-03-24 Pat Name: ? ELZA MCKEON ? Department: ?? 1 ? Room: ? [id number] Gender: ? Male ? Application Spec: ?? SC : ?1960 ? Requested By: EDNA CLEARY Order Number: [id number] ? Reading : ?? Elza Davis ? Measurements Intervals ?[place] ? Rate: ? 60 ? P: ?73 IN: ? 136 ?QRS: ?49 QRSD: ? 116 ?T: ?23 QT: ? 447 ? QTc: ?447 ? Interpretive Statements SINUS RHYTHM WITH SINUS ARRHYTHMIA Right Bundle Branch Block ROLLER OPERATOR Procedure Note Elza Davis MD - 03/24/2018 [facility] [address] [place] [address] Test Date: 2018-03-24 Pat Name: ELZA MCKEON Department: 1 Room: [address] Gender: Male Application Spec: SC : 1960 Requested By: EDNA CLEARY Order Number: [id number] Jose Antonio OSMAN: Elza Davis Measurements Intervals [place] Rate: 60 P: 73 IN: 136 QRS: 49 QRSD: 116 T: 23 QT: 447 QTc: 447 Interpretive Statements SINUS RHYTHM WITH SINUS ARRHYTHMIA Right Bundle Branch Block ROLLER OPERATOR us Edna Cleary MD ECG ORDERABLES Final Result Performing Organization Address [facility] Co de Phone Number [facility] * (ABNORMAL) POCT glucose (03/24/2018 10:05 AM SIZE ROLLER OPERATOR) GLUCOSE POC 265(H) 70 - 109 03/24/2018 10:06 AM SIZE ROLLER OPERATOR [facility] ORDERS INTERFACE 03/24/2018 10:0 5 AM SIZE ROLLER OPERATOR us Edna Cleary MD POCT ORDERABLES - DEVICE Final R esult Performing Organization Address [facility] de Phone Number [facility] ORDERS INTERFACE US * (ABNORMAL) ACT (HMT OR LHMT) (03/24/2018 9:09 AM SIZE ROLLER OPERATOR) ACTIVATED CLOTTING TIME (ACT HMT OR LMT) 246(H) 74 - 137 SEC 03/24/2018 9:13 AM SIZE ROLLER OPERATOR [facility] 03/24/2018 9:09 AM SIZE ROLLER OPERATOR us Edna Cleary MD LAB BLOOD ORDERABLES Final Resul t Performing Organization Address [facility] de Phone Number [facility] [address] [place] [address], [place] [phone] * (ABNORMAL) ACT (HMT OR LHMT) (03/24/2018 8:58 AM SIZE ROLLER OPERATOR) ACTIVATED CLOTTING TIME (ACT HMT OR LMT) 654(H) 74 - 137 SEC 03/24/2018 9:08 AM SIZE ROLLER OPERATOR [facility] 03/24/2018 8:58 AM SIZE ROLLER OPERATOR us Edna Cleary MD LAB BLOOD ORDERABLES Final Resul t Performing Organization Address [facility] de Phone Number [facility] [address] [place] [address], [place] [phone] * XA CORONARY INTERVENTION (03/24/2018 8:43 AM SIZE ROLLER OPERATOR) Anatomical Region Laterality Modality Cardiac Lockstitcher 03/24/2018 8:00 AM SIZE ROLLER OPERATOR us Edna Cleary MD WELLNESS COORDINATOR Final Result * ECG 12 lead (03/24/2018 6:45 AM SIZE ROLLER OPERATOR) 03/24/2018 6:45 AM SIZE ROLLER OPERATOR Narrative [facility] - 03/24/2018 12:57 PM SIZE ROLLER OPERATOR ? [facility] ?[address] [place], [place] ??[address] ? Test Date: ?2018-03-24 Pat Name: ? ELZA MCKEON ? Department: ?? 1 ? Room: ? [id number] Gender: ? Male ? Application Spec: ?? GS : ?1960 ? Requested By: EDNA CLEARY Order Number: [id number] ? Jose Antonio OSMAN: ?? Elza Davis ? Measurements Intervals ?[place] ? Rate: ? 65 ? P: ?57 IN: ? 138 ?QRS: ?38 QRSD: ? 121 ?T: ?3 QT: ? 419 ? QTc: ?438 ? Interpretive Statements SINUS RHYTHM WITH SINUS ARRHYTHMIA RIGHT BUNDLE BRANCH BLOCK ROLLER OPERATOR Procedure Note Elza Davis MD - 03/24/2018 [facility] [address] [place] [address] Test Date: 2018-03-24 Pat Name: [facility] Department: 1 Room: [facility] Gender: Male Application Spec: : 1960 Requested By: EDNA CLEARY Order Number: [id number] Reading MD: Elza Davis Measurements Intervals [place] Rate: 65 P: 57 IN: 138 QRS: 38 QRSD: 121 T: 3 QT: 419 QTc: 438 Interpretive Statements SINUS RHYTHM WITH SINUS ARRHYTHMIA RIGHT BUNDLE BRANCH BLOCK ROLLER OPERATOR us Edna Cleary MD ECG ORDERABLES Final Result [facility] documented in this encounter Visit Diagnoses Diagnosis Coronary artery disease of [place] artery of [place] heart with stable angina pectoris (CMS/HCC) Chronic total occlusion of coronary artery documented in this encounter Administered Medications Inactive Administered Medications - up to 3 most recent administrations Medication Order MAR Action Action Date Dose Rate Site sodium chloride 0.9% infusion at 100 mL/hr, Intravenous, Continuous, Starting on Tue03/24/18 at 0645, Until Tue03/24/18 at 1033, Pre-Op New Bag 03/24/2018 7:21 AM SIZE ROLLER OPERATOR 100 mLs 100 mL/hr Left Arm documented in this encounter Active and Recently Administered Medications Times are shown in SIZE ROLLER OPERATOR. Scheduled Medication Order 03/22/2018 03/23/2018 03/24/2018 aspirin [...] at 1024, Until Tue03/24/18 at 1641, Post-Op [id number]-oigpbwjbacx (MAALOX, MYL[place] EXTRA STRENGTH) 9948-5901-031 mg/30mL suspension 10 mL, Oral, Every 4 [...] documented as of this encounter Care Teams Avionics Electronics Technician Relationship Specialty Start Date End Date [place] [place] [phone] PCP - General FAMILY PRACTICE 10/27/15 12/02/21 Stanislaw [place] [place] [phone] CARDIOVASCULAR DISEASE 10/27/15 10/24/18 El[place] [address] [phone] Cascade Billboard Poster Helper CARDIOVASCULAR DISEASE 08/19/16 Raul Santana MD [address] [place] [address] CLINICAL CARDIAC ELECTROPHYSIOLOGY 06/16/17 Myah Handley NP [address] [place] [address] CARDIOVASCULAR DISEASE 06/16/17 07/10/19 Edna Cleary MD [address] [place] [phone] Supervisor Show Operations INTERVENTIONAL CARDIOLOGY 03/21/18 10/24/18 documented as of this encounter
--- OUTSIDE RECORDS SUMMARY | 2024-04-23 05:21 | XMS_ITS | Encounter Summary ---
Author Organization [facility] Address [address] [place] [address]. [place], [place] [address] [place] [address] Care Team Providers Care Relations Specialist Name Role Phone Vernon Mercedes MD Primary Care Provider [phone] Stanislaw Rhodes MD Unavailable Unavailab Evaristo Ying MD Unavailable UnavailRaul Suresh MD Unavailable Unavailabl Myah Gee NP Unavailable Unavailable Reason for Referral * Imaging (Routine) - Closed Specialty Diagnoses / Procedures Referred By Contac t Referred To Contact CARDIOLOGY Diagnoses Angina effort ([facility]/HCC) Abnormal stress test Diabetes (CMS/HCC [facility]) Hyperlipidemia Procedures [facility] POSS Evaristo Allan MD [address] [place] [address] [facility] [address] [place] [address] Phone: tel: fax: Referral ID Status Reason Start Date Expiration Date Visits Re quested Visits Authorized [id number] Closed 12/29/2017 04/14/2018 1 1 Encounter Details Date Type Department Care Team (Late st Contact Info) Description 12/29/2017 Orders Only [facility] [address] [place] [address] Evaristo Allan MD Social History [...] 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 [address] [place] [address] Ti Bonilla MD [address] [place] [phone] 05/23/2024 3:30 PM FLAT SORTER PROCESSOR Office Visit [facility] [address] [place] [phone] Jyoti Escobar MD [address] [place] [address] [phone] documented as of this encounter Results * [facility] POSS (01/04/2018 2:05 PM CDT) Anatomical Region Laterality Modality Cardiac Underwater Photographer 01/04/2018 1:30 PM CDT Evaristo Allan MD SCOOPING MACHINE TENDER Final Resul t documented in this encounter Visit Diagnoses Diagnosis Angina effort ([facility]/HCC)- Primary Other and unspecified angina pectoris Abnormal stress test Other nonspecific abnormal cardiovascular system function study Diabetes (CMS/HCC [facility]) Hyperlipidemia Other and unspecified hyperlipidemia documented in this encounter Additional Health Concerns Infection Onset Date Last Indicated Resolved Time MRSA Comment:Negative MRSA 05/201903/11/2017 03/11/2017 10/03/2019 10:08 AM CDT documented as of this encounter Care Teams Relations Specialist Relationship Specialty Start Date End Date Vernon Mercedes MD [address] [place] [phone] PCP - General FAMILY PRACTICE 10/27/15 12/02/21 Stanislaw Rhodes MD [address] [place] [phone] CARDIOVASCULAR DISEASE 10/27/15 10/24/18 Evaristo Allan MD [address] [place] [phone] [place] Director Service CARDIOVASCULAR DISEASE 08/19/16 Raul Santana MD [address] [place] [phone] CLINICAL CARDIAC ELECTROPHYSIOLOGY 06/16/17 Myah Handley, SAMPLER AND TEST PREPARER [address] [place] [phone] CARDIOVASCULAR DISEASE 06/16/17 07/10/19 documented as of this encounter
--- OUTSIDE RECORDS SUMMARY | 2024-04-23 05:21 | XMS_ITS | Encounter Summary ---
Author Organization [facility] Address [address] [place] [address]. 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 Not on [...] (Late Contact Info) Description 04/25/2024 11:00 AM INTERIOR WALL ASSEMBLER Appointment [facility] [address] [place] [address] Ti Bonilla MD [address] [place] [phone] 05/23/2024 3:30 PM INTERIOR WALL ASSEMBLER Office Visit [facility] [address] [place] [phone] Jyoti Escobar MD [address] [place] [address] [phone] documented as of this encounter Visit Diagnoses Not on filedocumented in this encounter Care Teams Attendant Child Activity Relationship Specialty Start Date End Date Vernon Mercedes MD [address] [place] [phone] PCP - General FAMILY PRACTICE 10/27/15 12/02/21 Stanislaw Rhodes MD [address] [place] [address] CARDIOVASCULAR DISEASE 10/27/15 10/24/18 documented as of this encounter
--- OUTSIDE RECORDS SUMMARY | 2024-04-23 05:21 | XMS_ITS | Encounter Summary ---
Author Organization [facility] Address [address] [place] [address]. [place], [place] [address] [place] [address] Care Team Providers Care Technical Support 1 Software Engineer Name Role Phone Vernon Mercedes MD Primary Care Provider Stanislaw Rhodes MD Unavailable Unavailab Evaristo Ying MD Unavailable Unavailabl Raul Duran MD Unavailable Unavailabl Myah Gee NP Unavailable Unavailable Reason for Visit * Reason Onset Date Comments Appointment Request 02/14/2018 Encounter Details Date Type Department Care Team (Late st Contact Info) Description 02/14/2018 Telephone [facility] AT [address] [phone] Deven Cleary MD Appointment Request [...] left requesting return call to schedule consultation (CLIENT CONSULTANT clinic) documented in this encounter Plan of Treatment Upcoming Encounters Date Type Department Care Team (Late st Contact Info) Description 04/25/2024 11:00 AM ELECTROCARDIOGRAPHIC TECHNICIAN Appointment [facility] [address] [place] [address] Ti Bonilla MD [address] [place] [phone] 05/23/2024 3:30 PM ELECTROCARDIOGRAPHIC TECHNICIAN Office Visit [facility] [address] [place] [address] Jyoti Escobar MD [address] [place] [address] [phone] documented as of this encounter Visit Diagnoses Not on filedocumented in this encounter Additional Health Concerns Infection Onset Date Last Indicated Resolved Time MRSA Comment:Negative MRSA 05/201903/11/2017 03/11/2017 10/03/2019 10:08 AM CDT documented as of this encounter Care Teams Technical Support 1 Software Engineer Relationship Specialty Start Date End Date Vernon Mercedes MD [address] [place] [address] PCP - General FAMILY PRACTICE 10/27/15 12/02/21 [place] [phone] CARDIOVASCULAR DISEASE 10/27/15 10/24/18 [place] [phone] [place] News Specialist CARDIOVASCULAR DISEASE 08/19/16 [place] [phone] CLINICAL CARDIAC ELECTROPHYSIOLOGY 06/16/17 [place] [address] CARDIOVASCULAR DISEASE 06/16/17 07/10/19 documented as of this encounter
--- OUTSIDE RECORDS SUMMARY | 2024-04-23 05:21 | XMS_ITS | Encounter Summary ---
Author Organization [facility] Address [address] [place] [address]. [place], [place] [address] [place] [address] Care Team Providers Care Clinical Application Manager Name Role Phone Ton Mercedes MD Primary Care Provider [phone] Stanislaw Rhodes MD Unavailable Unavailab Evaristo Ying MD Unavailable UnavailRaul Suresh MD Unavailable Unavailabl Myah Gee NP Unavailable Unavailable Reason for Visit * Reason Comments Consult Coronary artery dise ase Encounter Details Date Type Department Care Team (Latest Contact Info) Description 03/06/2018 2:45 PM RESEARCH PROJECT MANAGER Office Visit [facility] AT [address] [phone] Deven Cleary MD Consult (Coronary [...] 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 Paroxysmal atrial fibrillation (HCC) ??? 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 Obstructive sleep apnea ??? Hyperlipidemia ??? Chest pain ??? Diabetes (HCC) ??? Coronary artery disease of [place] artery of [place] heart with stable angina pectoris (HCC) ??? 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 He has [place] Cardiovascular Society Class 3 angina despite his [...] the office today. As you may know, PROPERTY AND SUPPLY OFFICER PCI is very complex and associated with [...] interact with and impact the risks of PROPERTY AND SUPPLY OFFICER PCI. If any questions remain unanswered or [...] CATHETERIZATION 01/04/2018 occluded prox RCA w/well developed [id number] collaterals lvef 55-60% ??? FRACTURE SURGERY ??? [...] Not on file Occupational History ??? 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 Smoking status: Never Smoker [...] normal. Diagnoses/Impression: 1. Chronic total occlusion of [place] coronary artery 2. Coronary artery disease of [place] artery of [place] heart with stable angina pectoris (HCC) [place] Documentation Completed: Coronary Artery Disease Referring Provider: Evaristo Allan PCP: TON MERCEDES MD ARCH PROJECT MANAGER documented in this encounter Plan of Treatment Upcoming Encounters Date Type Department Care Team (Late st Contact Info) Description 04/25/2024 11:00 AM RESEARCH PROJECT MANAGER [facility]ointment [facility] [facility] [place] [address] Ti Bonilla MD [address] [place] [phone] 05/23/2024 3:30 PM RESEARCH PROJECT MANAGER Office Visit [facility] [address] [place] [address] Jyoti Escobar MD [address] [place] [address] documented as of this encounter Visit Diagnoses Diagnosis Chronic total occlusion of [place] coronary artery- Primary Coronary artery disease of [place]vi artery of [place] heart with stable angina pectoris (CMS/HCC) Cardiovascular stress test abnormal Other nonspecific abnormal cardiovascular system function study documented in this encounter Additional Health Concerns Infection Onset Date Last Indicated Resolved Time MRSA Comment:Negative MRSA 05/201903/11/2017 03/11/2017 10/03/2019 10:08 AM CDT documented as of this encounter Care Teams Clinical Application Manager Relationship Specialty Start Date End Date Ton Mercedes MD [address] [place] [phone] PCP - General FAMILY PRACTICE 10/27/15 12/02/21 [place] [phone] CARDIOVASCULAR DISEASE 10/27/15 10/24/18 [place] [phone] [employer] Signal Wirer CARDIOVASCULAR DISEASE 08/19/16 [place] [phone] CLINICAL CARDIAC ELECTROPHYSIOLOGY 06/16/17 [place] [phone] CARDIOVASCULAR DISEASE 06/16/17 07/10/19 documented as of this encounter
--- OUTSIDE RECORDS SUMMARY | 2024-04-23 05:21 | XMS_ITS | Encounter Summary ---
Author Organization [facility] Address [address] [place] [address]. 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 * Alice Russell RN - 07/07/2016 9:02 AM CDT Patient called and stated that his had received a call stating that they had moved his appointment up to today at 1:30 in [facility] [facility]. No clinic noted in [facility] and patient scheduled tomorrow in [facility]. Please call patient back at [phone] to verify appointment date and time. documented in this encounter Plan of Treatment Upcoming Encounters Date Type Department Care Team (Late st Contact Info) Description 04/25/2024 11:00 AM FISH HATCHERY MAN Appointment [facility] [address] [place] [address] Ti Bonilla MD [address] [place] [phone] 05/23/2024 3:30 PM FISH HATCHERY MAN Office Visit [facility] [address] [place] [phone] Jyoti Escobar MD [address] [place] [address] documented as of this encounter Visit Diagnoses Not on filedocumented in this encounter Care Teams Specialty Food Products Supervisor Relationship Specialty Start Date End Date Vernon Mercedes MD [address] [place] [address] PCP - General FAMILY PRACTICE 10/27/15 12/02/21 Stanislaw Rhodes MD [address] [place] [address] CARDIOVASCULAR DISEASE 10/27/15 10/24/18 documented as of this encounter
--- OUTSIDE RECORDS SUMMARY | 2024-04-23 05:21 | XMS_ITS | Encounter Summary ---
Author Organization [facility] Address [address] [place] [address]. [place], [place] [address] [place] [address] Care Team Providers Care Sales Systems Engineer Name Role Phone Vernon Mercedes MD Primary Care Provider [phone] Stanislaw Rhodes MD Unavailable Unavailab le Reason for Visit * Reason Onset Date Comments Arrhythmia 05/25/2016 afib Encounter Details Date Type Department Care Team (Late st Contact Info) Description 05/25/2016 Telephone [employer] [facility] [address] [place] [address] Raul Santana MD Arrhythmia (afib) [...] increasing spells of afib. He expressed understanding. EEPER documented in this encounter Plan of Treatment Upcoming Encounters Date Type Department Care Team (Late st Contact Info) Description 04/25/2024 11:00 AM BARKEEPER Appointment [facility] [address] [place] [address] Ti Bonilla MD [address] [place] [phone] 05/23/2024 3:30 PM BARKEEPER Office Visit [facility] [address] [place] [address] Jyoti Escobar MD [address] [place] [address] [phone] documented as of this encounter Visit Diagnoses Not on filedocumented in this encounter Care Teams Sales Systems Engineer Relationship Specialty Start Date End Date Vernon Mercedes MD [address] [place] [phone] PCP - General FAMILY PRACTICE 10/27/15 12/02/21 Stanislaw Rhodes MD [address] [place] [address] CARDIOVASCULAR DISEASE 10/27/15 10/24/18 documented as of this encounter
--- OUTSIDE RECORDS SUMMARY | 2024-04-23 05:21 | XMS_ITS | Encounter Summary ---
Author Organization [facility] Address [address] [place] [address]. [place], [place] [address] [place] [address] Care Team Providers Care Ski Maker Name Role Phone Vernon Mercedes MD Primary Care Provider [phone] Stanislaw Rhodes MD Unavailable Unavailab Evaristo Ying MD Unavailable UnavailRaul Suresh MD Unavailable UnavailMyah Elena NP Unavailable Unavailable Deven Cleary MD Unavailable Unavailable Encounter Details Date Type Department Care Team (Late st Contact Info) Description 04/26/[address] [facility] [address] [place] [address] [place] [address] [place] [phone] Social History Tobacco Use Types Packs/Day [...] st Contact Info) Description 04/25/2024 11:00 AM COMPLIANCE OFFICER Appointment [facility] [address] [place] [address] Ti Bonilla MD [address] [place] [phone] 05/23/2024 3:30 PM COMPLIANCE OFFICER Office Visit [facility] [address] [place] [address] Jyoti Escobar MD [address] [place] [address] documented as of this encounter Visit Diagnoses Not on filedocumented in this encounter Additional Health Concerns Infection Onset Date Last Indicated Resolved Time MRSA Comment:Negative MRSA 05/201903/11/2017 03/11/2017 10/03/2019 10:08 AM CDT documented as of this encounter Care Teams Ski Maker Relationship Specialty Start Date End Date Vernon Mercedes MD [address] [place] [address] PCP - General FAMILY PRACTICE 10/27/15 12/02/21 Stanislaw Rhodes MD [address] [place] [address] CARDIOVASCULAR DISEASE 10/27/15 10/24/18 [place] [address] Green Moderate Needs Teacher CARDIOVASCULAR DISEASE 08/19/16 [place] [address] CLINICAL CARDIAC ELECTROPHYSIOLOGY 06/16/17 [place] [address] CARDIOVASCULAR DISEASE 06/16/17 07/10/19 [place] [address] Electrical Line Mechanic INTERVENTIONAL CARDIOLOGY 03/21/18 10/24/18 documented as of this encounter
--- OUTSIDE RECORDS SUMMARY | 2024-04-23 05:21 | XMS_ITS | Encounter Summary ---
Author Organization [facility] Address [address] [place] [address]. [place], [place] [address] [place] [address] Care Team Providers Care Cultural Centre Manager Name Role Phone Vernon Mercedes MD Primary Care Provider Stanislaw Rhodes MD Unavailable Unavailab Evaristo Ying MD Unavailable UnavailRaul Suresh MD Unavailable UnavailMyah Elena NP Unavailable Unavailable Deven Cleary MD Unavailable Unavailable Encounter Details Date Type Department Care Team (Late Contact Info) Description 04/26/2017 Abstract SFL CONVERSION [address] [place] [address] [place] [address] [place] [phone] Social History Tobacco Use Types Packs/Day Years [...] 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 [address] [place] [address] Ti Bonilla MD [address] [place] [phone] 05/23/2024 3:30 PM LITIGATION DOCKET MANAGER Office Visit [facility] [place] [address] Jyoti Escobar MD [address] [place] [address] documented as of this encounter Procedures Procedure Name Priority Date/Time Associated Diagnosis Comments PROSTATE SPECIFIC ANTIGEN,TOTAL Routine 04/26/2017 3:23 PM LITIGATION DOCKET MANAGER URINALYSIS Routine 04/26/2017 2:58 PM LITIGATION DOCKET MANAGER URINE BACTERIA CULTURE Routine 04/26/2017 2:58 PM LITIGATION DOCKET MANAGER documented in this encounter Results * PROSTATE SPECIFIC ANTIGEN,TOTAL (04/26/2017 3:23 PM LITIGATION DOCKET MANAGER) PSA 0.31 <4.00 NG/ML 04/26/2017 4:41 PM LITIGATION DOCKET MANAGER [facility] SERUM OR PLASMA SPECIMEN / Unknown 04/26/2017 3:23 PM LITIGATION DOCKET MANAGER 04/26/2017 3:26 PM LITIGATION DOCKET MANAGER us Generic Conversion Md [facility] Final R esult [facility] [address] [place] [address], * CULTURE URINE (04/26/2017 2:58 PM LITIGATION DOCKET MANAGER) SPEC DESCRIPTION URINE CLEAN CATCH 04/26/2017 3:02 PM LITIGATION DOCKET MANAGER [facility] SPECIAL REQUESTS NO SPECIAL REQUEST 04/26/2017 3:02 PM LITIGATION DOCKET MANAGER [facility] CULTURE RESULT NO GROWTH (< OR = 1,000 CFU/ML) 04/27/2017 9:45 PM LITIGATION DOCKET MANAGER [facility] URINE SPECIMEN OBTAINED BY CLEAN CATCH PROCEDURE / Unknown 04/26/2017 2:58 PM LITIGATION DOCKET MANAGER 04/26/2017 3:15 PM LITIGATION DOCKET MANAGER us Generic Conversion Md [facility] - GENERAL ORDERABLES Final Result [facility] [address] [place] [address], [place] [phone] [id number] [facility] [address] [place] [address], [place] [phone] * (ABNORMAL) URINALYSIS (04/26/2017 2:58 PM LITIGATION DOCKET MANAGER) COLOR (U) YELLOW 04/26/2017 3:40 PM LITIGATION DOCKET MANAGER [facility] TRANSPARENCY CLEAR 04/26/2017 3:40 PM LITIGATION DOCKET MANAGER [facility] SPECIFIC GRAVITY (U) 1.020 1.000 - 1.025 04/26/2017 3:40 PM [facility] U PH 5.5 5.0 - 8.0 04/26/2017 3:40 PM [facility] LEUKOCYTES (U) NEGATIVE NEGATIVE 04/26/2017 3:40 PM [facility] NITRITES NEGATIVE NEGATIVE 04/26/2017 3:40 PM [facility] PROTEIN (U) NEGATIVE NEGATIVE 04/26/2017 3:40 PM [facility] URINE GLUCOSE 3+(A) NEGATIVE 04/26/2017 3:40 PM [facility] KETONES MG/DL (U) NEGATIVE NEGATIVE 04/26/2017 3:40 PM [facility] UROBILINOGEN 0.2 <1.0 EU/DL 04/26/2017 3:40 PM [facility] BILIRUBIN (U) NEGATIVE NEGATIVE 04/26/2017 3:40 PM [facility] BLOOD (U) NEGATIVE NEGATIVE 04/26/2017 3:40 PM [facility] WBC/HPF 0-5 0 - 5 /HPF 04/26/2017 3:40 PM [facility] EPI/HPF MODERATE /LPF 04/26/2017 3:40 PM [facility] BACTERIA (U) TRACE /HPF 04/26/2017 3:40 PM LITIGATION DOCKET MANAGER [facility] MUCUS PRESENT 04/26/2017 3:40 PM LITIGATION DOCKET MANAGER [facility] 04/26/2017 2:58 PM LITIGATION DOCKET MANAGER 04/26/2017 3:15 PM LITIGATION DOCKET MANAGER us Generic Conversion Md [facility] URINE ORDERABLES Final Result [facility] [address] [place] [address], documented in this encounter Visit Diagnoses Diagnosis Enlarged prostate with lower urinary tract symptoms (LUTS) Hypertrophy of prostate with urinary obstruction and other lower urinary tract symptoms (LUTS) documented in this encounter Additional Health Concerns Infection Onset Date Last Indicated Resolved Time MRSA Comment:Negative MRSA 05/201903/11/2017 03/11/2017 10/03/2019 10:08 AM CDT documented as of this encounter Care Teams Cultural Centre Manager Relationship Specialty Start Date End Date [place] [address] PCP - General FAMILY PRACTICE 10/27/15 12/02/21 [place]is[place] [place] [address] CARDIOVASCULAR DISEASE 10/27/15 10/24/18 [place] [address] [place] Engineering Surveyor CARDIOVASCULAR DISEASE 08/19/16 Ra[place] [place] [address] CLINICAL CARDIAC ELECTROPHYSIOLOGY 06/16/17 [place] [address] CARDIOVASCULAR DISEASE 06/16/17 07/10/19 [place] [address] Rn Lactation INTERVENTIONAL CARDIOLOGY 03/21/18 10/24/18 documented as of this encounter
--- OUTSIDE RECORDS SUMMARY | 2024-04-23 05:21 | XMS_ITS | Encounter Summary ---
Author Organization [facility] Address [address] [place] [address]. [place], [place] [address] [place], [place] [address] Care Team Providers Care Opening Machine Cleaner Name Role Phone Vernon Delgado MD Primary Care Provider [phone] Stanislaw Rhodes MD Unavailable Unavailab Evaristo Ying MD Unavailable UnavailRaul Suresh MD Unavailable Unavailabl Myah Gee NP Unavailable Unavailable Reason for Visit * Reason Comments Follow Up Coronary Artery Disease Encounter Details Date Type Department Care Team (Latest Contact Info) Description 02/09/2018 2:00 PM CDT Office Visit [facility] [place] [address] Evaristo Allan MD Follow Up; Coronary Artery [...] 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 Dr Cleary consult for PLASMA CENTER TECHNICIAN 3. [place]k Screen Printer Helper to see in [place] by PCP Patient Education Patient Education Atrial Fibrillation The Basics Written by the doctors and editors at [facility] What is atrial fibrillation???--??Atrial fibrillation is the [...] process is complete. This topic retrieved from [employer] on: Apr 21, 2017. Topic 79708 Version 11.0 Release: 25.6.2-122 - C26.3 ?2018??[employer]. and/or its affiliates.??All rights reserved. figure 1: Atrial fibrillation This drawing shows where the heart is located in the chest. In atrial fibrillation, the electrical signals that control the heartbeat are abnormal. As a result, the top two chambers of the heart (seearrows) stop pumping effectively, and blood that should move out of these chambers gets left behind. Graphic 50521 Version 3.0 figure 2: Signs of stroke The letters in the word fast help you remember the signs of stroke. If a person shows any of these signs, call an ambulance right away. In the [place] and [place], dial ??9-1-1. ?? Graphic 06230 Version 3.0 Consumer Information Use and Disclaimer [...] that is right for you.The use of [employer] content is governed by the [employer] Terms of Use. ??2018 [employer]. All rights reserved. Copyright ?2018??[employer] and/or its affiliates.??All rights reserved. documented in [...] CATHETERIZATION 01/04/2018 occluded prox RCA w/well developed zjwq-on-ltvuv collaterals lvef 55-60% ??? FRACTURE SURGERY ??? [...] on file Occupational History ??? 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 Smoking status: Never Smoker [...] 2. Mixed hyperlipidemia 3. Essential hypertension 4. correction current use of anticoagulant therapy 5. Obstructive sleep apnea [place] Documentation Completed: Coronary Artery Disease Referring Provider: No ref. provider found PCP: VERNON DELGADO MD * Evaristo Allan MD - 02/09/2018 12:00 AM CDT HISTORY OF PRESENT ILLNESS: Mr. Zelaya is seen in the [facility] today for a scheduled followup [...] be reasonable to consider intervention on his PLASMA CENTER TECHNICIAN. Continued aggressive cardiac risk factor modification will [...] primary care physician (Dr. Delgado) at the [facility]. 3. A formal consultation with Dr. Cleary for consideration of PLASMA CENTER TECHNICIAN intervention. documented in this encounter Plan of Treatment Upcoming Encounters Date Type Department Care Team (Late st Contact Info) Description 04/25/2024 11:00 AM TECHNICAL TRAINING MANAGER Appointment 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 (CMS/HCC) Essential hypertension Unspecified essential hypertension Mixed hyperlipidemia Obstructive sleep apnea Obstructive sleep apnea (adult) (pediatric) documented in this encounter Additional Health Concerns Infection Onset Date Last Indicated Resolved Time MRSA Comment:Negative MRSA 05/201903/11/2017 03/11/2017 10/03/2019 10:08 AM CDT documented as of this encounter Care Teams Opening Machine Cleaner Relationship Specialty Start Date End Date Vernon Delgado MD [address] [place] [address] PCP - General FAMILY PRACTICE 10/27/15 12/02/21 Stanis[place] [place] [address] CARDIOVASCULAR DISEASE 10/27/15 10/24/18 Evar[place] [place] [address] [place] Coach Driver CARDIOVASCULAR DISEASE 08/19/16 Raul [place] [address] CLINICAL CARDIAC ELECTROPHYSIOLOGY 06/16/17 Myah Handley, FUR CUTTING MACHINE [place] [address] [address] CARDIOVASCULAR DISEASE 06/16/17 07/10/19 documented as of this encounter
--- OUTSIDE RECORDS SUMMARY | 2024-04-23 05:21 | XMS_ITS | Encounter Summary ---
Author Organization [facility] Address [address] [place] [address]. [place], [place] [address] [place] [address] Care Team Providers Care Filament Welder Name Role Phone Vernon Delgado MD Primary Care Provider [phone] Stanislaw Rhodes MD Unavailable Unavailab le Reason for Referral * Imaging (Routine) - Closed Specialty Diagnoses / Procedures Referred By Contac t Referred To Contact CARDIOLOGY Diagnoses Paroxysmal atrial fibrillation ([facility]/HCC [facility]) Procedures USE ECHOCARDIOGRAM Evaristo Allan MD [address] [address] Phone: tel: fax: Referral ID Status Reason Start Date Expiration Date Visits Re quested Visits Authorized [id number] Closed 07/08/2016 08/22/2016 1 1 Reason for Visit * Reason Comments Chest Pain Follow Up Atrial Fibrillation 5 days after ablatio n Encounter Details Date Type Department Care Team (Latest Contact Info) Description 07/08/2016 2:00 PM CDT Office Visit [facility] [address] [place] [address] Evaristo Allan MD Chest Pain; Follow Up; [...] ILLNESS: Mr. 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 Smoking [...] Contact Info) Description 04/25/2024 11:00 AM TELEPHONE ANSWERER Appointment [facility] [address] [place] [address] Ti Bonilla MD [address] [place] [phone] 05/23/2024 3:30 PM TELEPHONE ANSWERER [facility] [address] [place] [address] Jyoti Escobar MD [address] [place] [address] Scheduled Orders Name Type Priority Associated Diagnoses Orde r Schedule USE ECHOCARDIOGRAM ECHO Routine Paroxysmal atrial fibrillation ([facility]) Expected: 07/13/2016, Expires: 07/16/2017 documented as of this encounter Visit Diagnoses Diagnosis Paroxysmal atrial fibrillation ([facility])- Primary Atrial fibrillation Atypical chest pain Other chest pain SARAI (obstructive sleep apnea) Obstructive sleep apnea (adult) (pediatric) Essential hypertension Unspecified essential hypertension Hyperlipidemia, unspecified hyperlipidemia type documented in this encounter Care Teams Filament Welder Relationship Specialty Start Date End Date Vernon Delgado MD [address] [place] [phone] PCP - General FAMILY PRACTICE 10/27/15 12/02/21 Stanislaw Rhodes MD [address] [place] [address] CARDIOVASCULAR DISEASE 10/27/15 10/24/18 documented as of this encounter
--- OUTSIDE RECORDS SUMMARY | 2024-04-23 05:21 | XMS_ITS | Encounter Summary ---
Author Organization [facility] Address [address] [place] [address]. [place], [place] [address] [place] [address] Care Team Providers Care Strategy Consultant Name Role Phone Vernon Mercedes MD Primary Care Provider [phone] Stanislaw Rhodes MD Unavailable Unavailab Evaristo Ying MD Unavailable UnavailRaul Suresh MD Unavailable Unavailabl Myah Gee NP Unavailable Unavailable Reason for Referral * Imaging (Routine) - Closed Specialty Diagnoses / Procedures Referred By Conttianna t Referred To Contact CARDIOLOGY Diagnoses Chest pain Procedures NM PHARM NUC STRESS TEST 1DAY Evaristo Allan MD [address] [place] [address] [place] [address] [facility] [address] [place] [phone] Phone: tel: fax: Referral ID Status Reason Start Date Expiration Date Visits Re quested Visits Authorized [id number] Closed 12/16/2017 01/30/2018 1 1 Encounter Details Date Type Department Care Team (Late st Contact Info) Description 12/16/2017 Orders Only [facility] [address] [place] [address] Evaristo Allan MD Social History [...] st Contact Info) Description 04/25/2024 11:00 AM DRAPERY HAND Appointment [facility] [address] [place] [address] Ti Bonilla MD [address] [place] [phone] 05/23/2024 3:30 PM DRAPERY HAND Office Visit [facility] [address] [place] [address] Jyoti Escobar MD [address] [place] [address] documented as of this encounter Results [...] documented as of this encounter Care Teams Strategy Consultant Relationship Specialty Start Date End Date Vernon Mercedes MD [address] [place] [address] PCP - General FAMILY PRACTICE 10/27/15 12/02/21 Stanislaw Rhodes MD [address] [place] [address] CARDIOVASCULAR DISEASE 10/27/15 10/24/18 Evaristo Allan MD [address] [place] [address] Humble Back Shoe Operator CARDIOVASCULAR DISEASE 08/19/16 Raul Santana MD [address] [place] [address] CLINICAL CARDIAC ELECTROPHYSIOLOGY 06/16/17 Myah Handley NP [address] [place] [address] CARDIOVASCULAR DISEASE 06/16/17 07/10/19 documented as of this encounter
--- OUTSIDE RECORDS SUMMARY | 2024-04-23 05:21 | XMS_ITS | Encounter Summary ---
Author Organization [facility] Address [address] [place] [address]. [place], [place] [address] [place] [address] Care Team Providers Care Hat Body Inspector Name Role Phone Vernon Mercedes MD Primary Care Provider [phone] Stanislaw Rhodes MD Unavailable Unavailab Evaristo Ying MD Unavailable UnavailRaul Suresh MD Unavailable UnavailMyah Elena NP Unavailable Unavailable Deven Cleary MD Unavailable Unavailable Encounter Details Date Type Department Care Team (Late st Contact Info) Description 03/24/2018 7:58 AM SYNTHETIC FILAMENT EXTRUDER Anesthesia Event [facility] Operator Pre/Post [address] [place] [address] Damien Reyes MD [address] [place] [address] Anesthesia Record Procedure Summary Procedure Name Responsible [...] Chart Correction to drop the Anesthesia Placeholder [[id number]] Charge on anesthesia records per Incident #[id number]. Meds Name Total propofol (DIPRIVAN) 500 mg/50 [...] 1219 by Rosa Barnett Intraprocedure Event edited HETIC FILAMENT EXTRUDER documented in this encounter OR Notes * [...] Postoperative Hydration: euvolemic Complications: no anesthesia complication HETIC FILAMENT EXTRUDER * Anesthesia Preprocedure Evaluation - Barb Kelly [...] products discussed with patient of whom. . HETIC FILAMENT EXTRUDER documented in this encounter Plan of Treatment Upcoming Encounters Date Type Department Care Team (Late st Contact Info) Description 04/25/2024 11:00 AM SYNTHETIC FILAMENT EXTRUDER Appointment [facility] [address] [facility] [place] [address] Ti Bonilla MD [address] [place] [phone] 05/23/2024 3:30 PM SYNTHETIC FILAMENT EXTRUDER Office Visit [facility] [address] [facility] [place] [address] Jyoti Escobar MD [address] [place] [phone] documented as of this encounter Visit Diagnoses Not on filedocumented in this encounter Administered Medications Inactive Administered Medications - up to 3 most recent administrations Medication Order MAR Action Action Date Dose Rate Site heparin (porcine) injection PRN, Starting on Tue03/24/18 at 0849, Until Tue03/24/18 at 0953, Anesthesia Intra-Op Given 03/24/2018 9:13 AM SYNTHETIC FILAMENT EXTRUDER 2,000 Units Given 03/24/2018 8:49 AM SYNTHETIC FILAMENT EXTRUDER 10,000 Units ketamine (KETALAR) 100 mg in sodium chloride 0.9 % 100 mL infusion Intravenous, Continuous PRN, Starting on Tue03/24/18 at 0806, Until Tue03/24/18 at 0953, Anesthesia Intra-Op New Bag 03/24/2018 8:06 AM SYNTHETIC FILAMENT EXTRUDER 10 mcg/kg/min 71.3 mL/hr lactated ringers infusion Continuous PRN, Starting on Tue03/24/18 at 0758, Until Tue03/24/18 at 09, Anesthesia Intra-Op New Bag 03/24/2018 7:58 AM SYNTHETIC FILAMENT EXTRUDER midazolam (VERSED) injection PRN, Starting on Tue03/24/18 at 0844, Until Tue03/24/18 at 0953, Anesthesia Intra-Op Given 03/24/2018 8:44 AM SYNTHETIC FILAMENT EXTRUDER 2 mg propofol (DIPRIVAN) IV bolus Intravenous, Continuous PRN, Starting on Tue03/24/18 at 0806, Until Tue03/24/18 at 0953, Anesthesia Intra-Op New Bag 03/24/2018 8:06 AM SYNTHETIC FILAMENT EXTRUDER 100 mcg/kg/min 71.3 mL/hr sodium chloride 0.9% infusion Continuous PRN, Starting on Tue03/24/18 at 0810, Until Tue03/24/18 at 0953, Anesthesia Intra-Op New Bag 03/24/2018 8:10 AM SYNTHETIC FILAMENT EXTRUDER documented in this encounter Additional Health Concerns Infection Onset Date Last Indicated Resolved Time MRSA Comment:Negative MRSA 05/201903/11/2017 03/11/2017 10/03/2019 10:08 AM CDT documented as of this encounter Care Teams Hat Body Inspector Relationship Specialty Start Date End Date [place] [place] [phone] PCP - General FAMILY PRACTICE 10/27/15 12/02/21 Satnislaw [place] [address] [place] [address] CARDIOVASCULAR DISEASE 10/27/15 10/24/18 Evar[place] [address] [address] [place] Membership Solicitor CARDIOVASCULAR DISEASE 08/19/16 Raul [place] [address] [place] [address] CLINICAL CARDIAC ELECTROPHYSIOLOGY 06/16/17 [place] [place] [address] CARDIOVASCULAR DISEASE 06/16/17 07/10/19 Dev[place] [address] [address] Family Service Assistant INTERVENTIONAL CARDIOLOGY 03/21/18 10/24/18 documented as of this encounter
--- OUTSIDE RECORDS SUMMARY | 2024-04-23 05:21 | XMS_ITS | Encounter Summary ---
Author Organization [facility] Address [address] [place] [address]. 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 [place] [address] Ti Bonilla MD [address] [place] [phone] 05/23/2024 3:30 PM BILINGUAL MIDDLE SCHOOL TEACHER Office Visit [facility] [address] [place] [address] Jyoti Escobar MD [address] [place] [address] documented as of this encounter Visit Diagnoses Not on filedocumented in this encounter Additional Health Concerns Infection Onset Date Last Indicated Resolved Time MRSA Comment:Negative MRSA 05/201903/11/2017 03/11/2017 10/03/2019 10:08 AM CDT documented as of this encounter Care Teams Dental Office Assistant Relationship Specialty Start Date End Date Vernon Mercedes MD [address] [place] [address] PCP - General FAMILY PRACTICE 10/27/15 12/02/21 Stanislaw Rhodes MD [address] [place] [address] CARDIOVASCULAR DISEASE 10/27/15 10/24/18 Evaristo Allan MD [address] [place] [address] [place] [employer] Filling Mixer CARDIOVASCULAR DISEASE 08/19/16 documented as of this encounter
--- OUTSIDE RECORDS SUMMARY | 2024-04-23 05:21 | XMS_ITS | Encounter Summary ---
Author Organization [facility] Address [address] [place] [address]. 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 [address] [place] [address] Ti Bonilla MD [address] [place] [phone] 05/23/2024 3:30 PM HEAVY EQUIPMENT OPERATOR/PAVER Office [facility] [address] [place] [address] Jyoti Escobar MD [address] [place] [address] documented as of this encounter Visit Diagnoses Not on filedocumented in this encounter Additional Health Concerns Infection Onset Date Last Indicated Resolved Time MRSA Comment:Negative MRSA 05/201903/11/2017 03/11/2017 10/03/2019 10:08 AM CDT documented as of this encounter Care Teams Security Nurse Relationship Specialty Start Date End Date [place] [address] PCP - General FAMILY PRACTICE 10/27/15 12/02/21 [place] [address] CARDIOVASCULAR DISEASE 10/27/15 10/24/18 [place] [address] [place] Reconciliation Coordinator CARDIOVASCULAR DISEASE 08/19/16 [place] [address] CLINICAL CARDIAC ELECTROPHYSIOLOGY 06/16/17 [place] [address] CARDIOVASCULAR DISEASE 06/16/17 07/10/19 documented as of this encounter
--- OUTSIDE RECORDS SUMMARY | 2024-04-23 05:21 | XMS_ITS | Encounter Summary ---
Author Organization [facility] Address [address] [place] [address]. [place], [place] [address] [place] [address] Care Team Providers Care Gate Manager Name Role Phone Vernon Mercedes MD Primary Care Provider [phone] Stanislaw Rhodes MD Unavailable Unavailab Evaristo Ying MD Unavailable Unavailabl Raul Duran MD Unavailable Unavailabl Myah Gee NP Unavailable Unavailable Reason for Visit * Reason Onset Date Comments Returned Call 02/15/2018 Encounter Details Date Type Department Care Team (Late st Contact Info) Description 02/15/2018 Telephone [facility] [address] [address] Deven Cleary MD Returned Call [...] call received from patient. Appointment scheduled for CONFERENCE SERVICES COORDINATOR consultation on 03/08/2018 at the [facility]. Subsequent call received and reports that he has to have his at the airport on that day. Appointment reschedule and confirmed. Reminder letter sent documented in this encounter Plan of Treatment Upcoming Encounters Date Type Department Care Team (Late st Contact Info) Description 04/25/2024 11:00 AM INFORMATION SYSTEMS ARCHITECT Appointment [facility] [address] [place] [address] Ti Bonilla MD [address] [place] [phone] 05/23/2024 3:30 PM INFORMATION SYSTEMS ARCHITECT Office Visit [facility] [address] [place] [phone] Jyoti Escobar MD [address] [place] [address] documented as of this encounter Visit Diagnoses Not on filedocumented in this encounter Additional Health Concerns Infection Onset Date Last Indicated Resolved Time MRSA Comment:Negative MRSA 05/201903/11/2017 03/11/2017 10/03/2019 10:08 AM CDT documented as of this encounter Care Teams Gate Manager Relationship Specialty Start Date End Date Vernon eMrcedes MD [address] [place] [address] PCP - General FAMILY PRACTICE 10/27/15 12/02/21 [place] [address] CARDIOVASCULAR DISEASE 10/27/15 10/24/18 [place] [address] [place] Governor Assembler Hydraulic CARDIOVASCULAR DISEASE 08/19/16 [place] [address] CLINICAL CARDIAC ELECTROPHYSIOLOGY 06/16/17 Myah Handley [place] [address] CARDIOVASCULAR DISEASE 06/16/17 07/10/19 documented as of this encounter
--- OUTSIDE RECORDS SUMMARY | 2024-04-23 05:21 | XMS_ITS | Encounter Summary ---
Author Organization [facility] Address [address] [place] [address]. [place] [address] [place] [address] Care Team Providers Care Cashier Checker Name Role Phone Vernon Mercedes MD Primary Care Provider [phone] Stanislaw Rhodes MD Unavailable Unavailab le Reason for Visit * Reason Onset Date Comments Information 06/18/2016 Encounter Details Date Type Department Care Team (Late st Contact Info) Description 06/18/2016 Telephone [employer] [facility] [address] [phone] Fabi Tapia NP [address] [place], [place] [address] Information Social History Tobacco Use Types Packs/Day [...] fib. Left message for patient to call. Y CHILDHOOD ASSOCIATE TEACHER documented in this encounter Plan of Treatment Upcoming Encounters Date Type Department Care Team (Late st Contact Info) Description 04/25/2024 11:00 AM EARLY CHILDHOOD ASSOCIATE TEACHER Appointment [facility] [address] [place] [address] Ti Bonilla MD [address] [place] [phone] 05/23/2024 3:30 PM EARLY CHILDHOOD ASSOCIATE TEACHER Office Visit [facility] [address] [place] [address] Jyoti Escobar MD [address] [place] [address] documented as of this encounter Visit Diagnoses Not on filedocumented in this encounter Care Teams Cashier Checker Relationship Specialty Start Date End Date Vernon Mercedes MD [address] [place] [phone] PCP - General FAMILY PRACTICE 10/27/15 12/02/21 Stanislaw Rhodes MD [address] [place] [address] CARDIOVASCULAR DISEASE 10/27/15 10/24/18 documented as of this encounter
--- OUTSIDE RECORDS SUMMARY | 2024-04-23 05:21 | XMS_ITS | Encounter Summary ---
Author Organization [facility] Address [address] [place] [address]. [place], [place] [address] [place] [address] Care Team Providers Care Trust Clerk Name Role Phone Vernon Mercedes MD Primary Care Provider [phone] Stanislaw Rhodes MD Unavailable Unavailab Evaristo Ying MD Unavailable UnavailRaul Suresh MD Unavailable UnavailMyah Elena NP Unavailable Unavailable Deven Cleary MD Unavailable Unavailable Encounter Details Date Type Department Care Team (Late Contact Info) Description 11/17/2016 [facility] [address] [place] [address] Vernon Mercedes MD [address] [place] [address] Social History Tobacco Use Types [...] 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 Not on file Not on file documented as of this encounter Plan of Treatment Upcoming Encounters Date Type Department Care Team (Late Contact Info) Description 04/25/2024 11:00 AM CUSTOMER ACCOUNT TECHNICIAN Appointment [facility] [address] [place] [address] Ti Bonilla MD [address] [place] [address] 05/23/2024 3:30 PM CUSTOMER ACCOUNT TECHNICIAN Office Visit [facility] [place] [address] Jyoti Escobar MD [address] [place] [address] documented as of this encounter Procedures Procedure [...] - 15.0 MCG/ML 11/19/2016 6:52 AM CDT [facility] SERUM OR PLASMA SPECIMEN / Unknown 11/19/2016 6:25 AM CDT 11/19/2016 6:33 AM CDT us Generic Conversion Md [facility] Final R esult [facility] [address] [place] [address], * (ABNORMAL) CBC W/DIFF AUTOMATED (11/19/2016 6:25 AM CDT) WBC 6.0 4.5 - 10.8 x10'3/uL 11/19/2016 6:36 AM CDT [facility] RBC 4.12(L) 4.50 - 6.10 x10'6/uL 11/19/2016 6:36 AM CDT [facility] HGB 11.7(L) 13.0 - 18.0 G/DL 11/19/2016 6:36 AM CDT [facility] HCT 35.7(L) 37.0 - 52.0 % 11/19/2016 6:36 AM CDT [facility] MCV 86.7 78.0 - 100.0 FL 11/19/2016 6:36 AM CDT [facility] MCH 28.4 27.0 - 31.0 PG 11/19/2016 6:36 AM CDT [facility] MCHC 32.8(L) 33.0 - 36.0 G/DL 11/19/2016 6:36 AM CDT [facility] RDW 13.8 11.5 - 14.5 % 11/19/2016 6:36 AM CDT [facility] PLT 239 150 - 350 x10'3/uL 11/19/2016 6:36 AM CDT [facility] MPV 10.9(H) 7.4 - 10.4 FL 11/19/2016 6:36 AM CDT [facility] SEG NEUTROPHILS 60.3 % 7 6:36 AM CDT [facility] LYMPHOCYTES 24.7 % 11/19/2016 6:36 AM CDT [facility] MONOCYTES 11.9 % 11/19/2016 6:36 AM CDT [facility] EOSINOPHILS 1.5 % 11/19/2016 6:36 AM CDT [facility] BASOPHILS 0.8 % 11/19/2016 6:36 AM CDT [facility] IMMATURE GRANS % 0.8 % 11/20/19 17 6:36 AM CDT [facility] NRBC 0.0 % 11/19/2016 6:36 AM CDT [facility] ABS. NEUTROPHILS 3.63 1.60 - 8.30 x10'3/uL 11/19/2016 6:36 AM CDT [facility] ABS. LYMPHOCYTES 1.49 0.80 - 4.70 x10'3/uL 11/19/2016 6:36 AM CDT [facility] ABS. MONOCYTES 0.72 0.00 - 1.50 x10'3/uL 11/19/2016 6:36 AM CDT [facility] ABS. EOSINOPHILS 0.09 0.00 - 0.40 x10'3/uL 11/19/2016 6:36 AM CDT [facility] ABS. BASOPHILS 0.05 0.00 - 0.20 x10'3/uL 11/19/2016 6:36 AM CDT [facility] ABS. IMMATURE GRANULOCYTES 0.05(H) 0.00 - 0.03 x10'3/uL 11/19/2016 6:36 AM CDT [facility] ABS. NUCLEATED RBC'S 0.00 0.00 x10'3/uL 11/19/2016 6:36 AM CDT [facility] OTHER (type in comments) 11/19/2016 6:25 AM CDT 11/19/2016 6:33 AM CDT Comment:WHOLE BLOOD SAMPLE us Generic Conversion Md [facility] Final R esult [facility] [address] [place] [address], * (ABNORMAL) BASIC METABOLIC PANEL (11/19/2016 6:25 AM CDT) GLUCOSE 175(H) 70 - 99 MG/DL 11/19/2016 6:52 AM CDT [facility] BUN 11 8 - 26 MG/DL 11/19/2016 6:52 AM CDT [facility] CREATININE S/P/B 0.88 0.72 - 1.25 MG/DL 11/19/2016 6:52 AM CDT [facility] SODIUM S/P/B 139 136 - 145 MMOL/L 11/19/2016 6:52 AM CDT [facility] POTASSIUM S/P/B 4.4 3.5 - 5.1 MMOL/L 11/19/2016 6:52 AM CDT [facility] CHLORIDE S/P/B 107 98 - 107 MMOL/L 11/19/2016 6:52 AM CDT [facility] CO2 24.0 22.0 - 29.0 MMOL/L 11/19/2016 6:52 AM CDT [facility] CALCIUM S/P/B 8.8 8.4 - 10.2 MG/DL 11/19/2016 6:52 AM CDT [facility] EGFR NON-AFR. AMER. >60 >60 ML/MIN/1.7 3 M2 11/19/2016 6:52 AM CDT [facility] EGFR AFR. AMER. >60 >60 ML/MIN/1.7 3 M2 11/19/2016 6:52 AM CDT [facility] ANION GAP 8.0 7 - 16 MMOL/L 11/19/2016 6:52 AM CDT [facility] 11/19/2016 6:25 AM CDT 11/19/2016 6:33 AM CDT Generic Conversion Md [facility] Performing Organization Address City/[facility]/ZIP Co de Phone Number [facility] [address] [place] [address], * (ABNORMAL) GLUCOSE BLOOD, QNT (11/19/2016 5:31 AM CDT) GLUCOSE POC 172(H) 70 - 99 MG/DL 11/19/2016 5:49 AM CDT [facility] ORDERS INTERFACE Comment:Value Noted, No Mandie tment Given 11/19/2016 5:31 AM CDT 11/19/2016 5:49 AM CDT us Generic Conversion Md [facility] Final R esazeem [facility] ORDERS INTERFACE US * (ABNORMAL) GLUCOSE BLOOD, QNT (11/18/2016 8:29 PM CDT) GLUCOSE POC 188(H) 70 - 99 MG/DL 11/19/2016 2:46 AM CDT [facility] ORDERS INTERFACE Comment:Value Noted, No Mandie tment Given 11/18/2016 8:29 PM CDT 11/19/2016 2:46 AM CDT Generic Conversion Md [facility] Final R esult [facility] ORDERS INTERFACE US * (ABNORMAL) GLUCOSE BLOOD, QNT (11/18/2016 4:21 PM CDT) GLUCOSE POC 153(H) 70 - 99 MG/DL 11/18/2016 4:27 PM CDT [facility] ORDERS INTERFACE 11/18/2016 4:21 PM CDT 11/18/2016 4:27 PM CDT us Generic Conversion Md [facility] Final R [facility] Performing Organization Address [facility] de Phone Number [facility] ORDERS INTERFACE US * (ABNORMAL) GLUCOSE BLOOD, QNT (11/18/2016 11:09 AM CDT) GLUCOSE POC 169(H) 70 - 99 MG/DL 11/18/2016 11:11 AM CDT [facility] ORDERS INTERFACE 11/18/2016 11:0 9 AM CDT 11/18/2016 11:11 AM CDT us Generic Conversion Md [facility] Final [facility] Performing Organization Address [facility] Phone Number [facility] ORDERS INTERFACE US * (ABNORMAL) GLUCOSE BLOOD, QNT (11/18/2016 5:11 AM CDT) GLUCOSE POC 166(H) 70 - 99 MG/DL 11/18/2016 5:15 AM CDT [facility] ORDERS INTERFACE Comment:Value Noted, No Mandie tment Given 11/18/2016 5:11 AM CDT 11/18/2016 5:14 AM CDT us Generic Conversion Md [facility] Final R [facility] Performing Organization Address [facility] Phone Number [facility] ORDERS INTERFACE US * (ABNORMAL) GLUCOSE BLOOD, QNT (11/17/2016 8:53 PM CDT) GLUCOSE POC 170(H) 70 - 99 MG/DL 11/17/2016 9:15 PM CDT [facility] ORDERS INTERFACE Comment:Value Noted, No Mandie tment Given 11/17/2016 8:53 PM CDT 11/17/2016 9:15 PM CDT us Generic Conversion Md [facility] Final R [facility] Performing Organization Address [facility] Co de Phone Number [facility] ORDERS INTERFACE US * CULTURE, BACTERIA, BLOOD (11/17/2016 3:17 PM CDT) SPEC DESCRIPTION BLOOD 11/17/2016 3:04 PM CDT [facility] SPECIAL REQUESTS NO SPECIAL REQUEST 11/17/2016 3:04 PM CDT [facility] CULTURE RESULT NO GROWTH 5 DAYS 11/22/2016 6:12 AM CDT [facility] BLOOD SPECIMEN OBTAINED FOR BLOOD CULTURE / Unknown 11/17/2016 3:17 PM CDT 11/17/2016 3:22 PM CDT us Generic Conversion Md [facility] - GENERAL ORDERABLES Final Result Performing Organization Address City/[facility]/ZIP Co de Phone Number [facility] [address] [place] [address], * CULTURE, BACTERIA, BLOOD (11/17/2016 3:15 PM CDT) SPEC DESCRIPTION BLOOD 11/17/2016 3:04 PM CDT [facility] SPECIAL REQUESTS NO SPECIAL REQUEST 11/17/2016 3:04 PM CDT [facility] CULTURE RESULT NO GROWTH 5 DAYS 11/22/2016 6:12 AM CDT [facility] BLOOD SPECIMEN OBTAINED FOR BLOOD CULTURE / Unknown 11/17/2016 3:15 PM CDT 11/17/2016 3:22 PM CDT us Generic Conversion Md [facility] - GENERAL ORDERABLES Final Result Performing Organization Address City/[facility]/ZIP Co de Phone Number [facility] [address] [place] [address], [place] [phone] * LACTIC ACID (11/17/2016 3:15 PM CDT) LACTIC ACID VENOUS 1.7 0.5 - 2.2 MMOL/L 11/17/2016 3:39 PM CDT [facility] PLASMA SPECIMEN / Unknown 11/17/2016 3:15 PM CDT 11/17/2016 3:22 PM CDT us Generic Conversion Md [facility] Final R esult [facility] [address] [place] [address], [place] [phone] * D-DIMER, QUANTITATIVE (11/17/2016 3:15 PM CDT) D-DIMER 153 <230 D DU ng/mL 11/17/2016 3:34 PM CDT [facility] PLASMA SPECIMEN / Unknown 11/17/2016 3:15 PM CDT 11/17/2016 3:22 PM CDT us Generic Conversion Md [facility] Final R esult Performing Organization Address City/[facility]/ZIP Co de Phone Number [facility] [place] [address], [place] [phone] * (ABNORMAL) COMPREHENSIVE METABOLIC PANEL (11/17/2016 3:15 PM CDT) GLUCOSE 313(H) 70 - 99 MG/DL 11/17/2016 3:43 PM CDT [facility] BUN 21 8 - 26 MG/DL 11/17/2016 3:43 PM CDT [facility] CREATININE S/P/B 1.44(H) 0.72 - 1.25 MG/DL 11/17/2016 3:43 PM CDT [facility] SODIUM S/P/B 135(L) 136 - 145 MMOL/L 11/17/2016 3:43 PM CDT [facility] POTASSIUM S/P/B 4.7 3.5 - 5.1 MMOL/L 11/17/2016 3:43 PM CDT [facility] CHLORIDE S/P/B 101 98 - 107 MMOL/L 11/17/2016 3:43 PM CDT [facility] CO2 23.0 22.0 - 29.0 MMOL/L 11/17/2016 3:43 PM CDT [facility] CALCIUM S/P/B 9.9 8.4 - 10.2 MG/DL 11/17/2016 3:43 PM CDT [facility] BILIRUBIN TOTAL S/P/B 0.3 0.2 - 1.2 MG/DL 11/17/2016 3:43 PM CDT [facility] TOTAL PROTEIN S/P/B 7.7 6.0 - 8.3 G/DL 11/17/2016 3:43 PM CDT [facility] ALBUMIN S/P/B 4.1 3.5 - 5.2 G/DL 11/17/2016 3:43 PM CDT [facility] AST 31 5 - 34 U/L 11/17/2016 3:43 PM CDT [facility] ALT 61(H) 0 - 55 U/L 11/17/2016 3:43 PM CDT [facility] ALKALINE PHOSPHATASE S/P/B 85 50 - 136 U/L 11/17/2016 3:43 PM CDT [facility] OSMOLALITY (CALC) 285 275 - 300 MOSM/KG 11/17/2016 3:43 PM CDT [facility] A/G RATIO 1.1 1.0 - 1.6 RATIO 11/17/2016 3:43 PM CDT [facility] BUN CREATININE RATIO 14.6 12 - 20 11/17/2016 3:43 PM CDT [facility] ANION GAP 11.0 7 - 16 MMOL/L 11/17/2016 3:43 PM CDT [facility] EGFR NON-AFR. AMER. 54(L) >60 ML/MIN/1.7 3 M2 11/17/2016 3:43 PM CDT [facility] EGFR AFR. AMER. >60 >60 ML/MIN/1.7 3 M2 11/17/2016 3:43 PM CDT [facility] 11/17/2016 3:15 PM CDT 11/17/2016 3:22 PM CDT us Generic Conversion Md [facility] Final R esult [facility] [address] [place] [address], * (ABNORMAL) CBC W/DIFF AUTOMATED (11/17/2016 3:15 PM CDT) WBC 8.5 4.5 - 10.8 x10'3/uL 11/17/2016 3:26 PM CDT [facility] RBC 4.33(L) 4.50 - 6.10 x10'6/uL 11/17/2016 3:26 PM CDT [facility] HGB 12.5(L) 13.0 - 18.0 G/DL 11/17/2016 3:26 PM CDT [facility] HCT 37.2 37.0 - 52.0 % 11/17/2016 3:26 PM CDT [facility] MCV 85.9 78.0 - 100.0 FL 11/17/2016 3:26 PM CDT [facility] MCH 28.9 27.0 - 31.0 PG 11/17/2016 3:26 PM CDT [facility] MCHC 33.6 33.0 - 36.0 G/DL 11/17/2016 3:26 PM CDT [facility] RDW 13.6 11.5 - 14.5 % 11/17/2016 3:26 PM CDT [facility] PLT 294 150 - 350 x10'3/uL 11/17/2016 3:26 PM CDT [facility] MPV 11.2(H) 7.4 - 10.4 FL 11/17/2016 3:26 PM CDT [facility] SEG NEUTROPHILS 61.9 % 7 3:26 PM CDT [facility] LYMPHOCYTES 24.1 % 11/17/2016 3:26 PM CDT [facility] MONOCYTES 11.3 % 11/17/2016 3:26 PM CDT [facility] EOSINOPHILS 1.1 % 11/17/2016 3:26 PM CDT [facility] BASOPHILS 0.8 % 11/17/2016 3:26 PM CDT [facility] IMMATURE GRANS % 0.8 % 11/18/19 17 3:26 PM CDT [facility] NRBC 0.0 % 11/17/2016 3:26 PM CDT [facility] ABS. NEUTROPHILS 5.27 1.60 - 8.30 x10'3/uL 11/17/2016 3:26 PM CDT [facility] ABS. LYMPHOCYTES 2.05 0.80 - 4.70 x10'3/uL 11/17/2016 3:26 PM CDT [facility] ABS. MONOCYTES 0.96 0.00 - 1.50 x10'3/uL 11/17/2016 3:26 PM CDT [facility] ABS. EOSINOPHILS 0.09 0.00 - 0.40 x10'3/uL 11/17/2016 3:26 PM CDT [facility] ABS. BASOPHILS 0.07 0.00 - 0.20 x10'3/uL 11/17/2016 3:26 PM CDT [facility] ABS. IMMATURE GRANULOCYTES 0.07(H) 0.00 - 0.03 x10'3/uL 11/17/2016 3:26 PM CDT [facility] ABS. NUCLEATED RBC'S 0.00 0.00 x10'3/uL 11/17/2016 3:26 PM CDT [facility] OTHER (type in comments) 11/17/2016 3:15 PM CDT 11/17/2016 3:22 PM CDT Comment:WHOLE BLOOD SAMPLE us Generic Conversion Md [facility] Final R esult [facility] [address] [place] [address], documented in this encounter Visit Diagnoses Diagnosis Cellulitis of left lower extremity Cellulitis and abscess of leg, except foot documented in this encounter Additional Health Concerns Infection Onset Date Last Indicated Resolved Time MRSA Comment:Negative MRSA 05/201903/11/2017 03/11/2017 10/03/2019 10:08 AM CDT documented as of this encounter Care Teams Trust Clerk Relationship Specialty Start Date End Date Vernon Mercedes MD [address] [place] [address] PCP - General FAMILY PRACTICE 10/27/15 12/02/21 Stanislaw Rhodes MD [address] [place] [address] CARDIOVASCULAR DISEASE 10/27/15 10/24/18 Evaristo Allan MD [address] [place] [address] [employer] Asic Engineer CARDIOVASCULAR DISEASE 08/19/16 Raul Santana MD [address] [place] [address] CLINICAL CARDIAC ELECTROPHYSIOLOGY 06/16/17 Myah Handley NP [address] [place] [address] CARDIOVASCULAR DISEASE 06/16/17 07/10/19 Deven Cleary MD [address] [place] [address] Hardware Supplies Sales Representative INTERVENTIONAL CARDIOLOGY 03/21/18 10/24/18 documented as of this encounter
--- OUTSIDE RECORDS SUMMARY | 2024-04-23 05:22 | XMS_ITS | Encounter Summary ---
Author Organization [facility] Address [address] [place] [address]. [place], [place] [address] [place] [address] Care Team Providers Care Lead Javascript Engineer Name Role Phone Vernon Mercedes MD Primary Care Provider [phone] Stanislaw Rhodes MD Unavailable Unavailab Evaristo Ying MD Unavailable UnavailRaul Suresh MD Unavailable UnavailMyah Elena NP Unavailable Unavailable Deven Cleary MD Unavailable Unavailable Encounter Details Date Type Department Care Team (Late Contact Info) Description 05/15/[address] 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 [address] [place] [address] Ti Bonilla MD [address] [place] [address] 05/23/2024 3:30 PM SUPERVISOR FLOOR ASSEMBLY Office Visit [facility] [address] [place] [address] Jyoti Escobar MD [address] [place] [address] documented as of this encounter Visit Diagnoses Diagnosis Type 2 diabetes mellitus without complications ([facility]/HCC [facility]) Type II or unspecified type diabetes mellitus without mention of complication, not stated as uncontrolled documented in this encounter Additional Health Concerns Infection Onset Date Last Indicated Resolved Time MRSA Comment:Negative MRSA 05/201903/11/2017 03/11/2017 10/03/2019 10:08 AM CDT documented as of this encounter Care Teams Lead Javascript Engineer Relationship Specialty Start Date End [place] [address] PCP - General FAMILY PRACTICE 10/27/15 12/02/21 [place] [address] CARDIOVASCULAR DISEASE 10/27/15 10/24/18 [place] [address] [place] Engine Repair Supervisor CARDIOVASCULAR DISEASE 08/19/16 [place] [address] CLINICAL CARDIAC ELECTROPHYSIOLOGY 06/16/17 [place] [address] CARDIOVASCULAR DISEASE 06/16/17 07/10/19 [place] [address] Planer Feeder INTERVENTIONAL CARDIOLOGY 03/21/18 10/24/18 documented as of this encounter
--- OUTSIDE RECORDS SUMMARY | 2024-04-23 05:22 | XMS_ITS | Encounter Summary ---
Author Organization [facility] Address [address] [place] [address]. [place], [place] [address] [place] [address] Care Team Providers Care Chief Power Dispatcher Name Role Phone Vernon Mercedes MD Primary Care Provider [phone] Stanislaw Rhodes MD Unavailable Unavailab Evaristo Ying MD Unavailable UnavailRaul Suresh MD Unavailable UnavailMyah Elena NP Unavailable Unavailable Encounter Details Date Type Department Care Team (Late st Contact Info) Description 10/25/2014 Abstract [facility] [address] [place] [address] Danny Blackwell MD [address] [place], [place] [phone] Social History Tobacco Use Types Packs/Day Years [...] Danny Blackwell M.D.; Oct 28 2014 2:27PM IN STORE MARKETER (Author) documented in this encounter Plan of Treatment Upcoming Encounters Date Type Department Care Team (Late st Contact Info) Description 04/25/2024 11:00 AM IN STORE MARKETER Appointment [facility] [address] [place] [address] Ti Bonilla MD [address] [place] [phone] 05/23/2024 3:30 PM IN STORE MARKETER Office Visit [facility] [address] [place] [address] Jyoti Escobar MD [address] [place] [address] documented as of this encounter Visit Diagnoses Not on filedocumented in this encounter Additional Health Concerns Infection Onset Date Last Indicated Resolved Time MRSA Comment:Negative MRSA 05/201903/11/2017 03/11/2017 10/03/2019 10:08 AM CDT documented as of this encounter Care Teams Chief Power Dispatcher Relationship Specialty Start Date End Date Vernon Mercedes MD [address] [place] [address] PCP - General FAMILY PRACTICE 10/27/15 12/02/21 Stanislaw Rhodes MD [address] [place] [address] CARDIOVASCULAR DISEASE 10/27/15 10/24/18 Evaristo Allan MD [address] [place] [address] [place] Education General Manager CARDIOVASCULAR DISEASE 08/19/16 Raul Santana MD [address] [place] [address] CLINICAL CARDIAC ELECTROPHYSIOLOGY 06/16/17 Myah Handley, DECKHAND [address] [place] [address] [place] [address] CARDIOVASCULAR DISEASE 06/16/17 07/10/19 documented as of this encounter
--- OUTSIDE RECORDS SUMMARY | 2024-04-23 05:22 | XMS_ITS | Encounter Summary ---
Author Organization [facility] Address [address] [place] [address]. [place], [place] [address] [place] [address] Care Team Providers Care Commercial Parts Professional Name Role Phone Vernon Mercedes MD Primary Care Provider Stanislaw Rhodes MD Unavailable Unavailab Evaristo Ying MD Unavailable UnavailRaul Suresh MD Unavailable UnavailMyah Elena NP Unavailable Unavailable Deven Cleary MD Unavailable Unavailable Encounter Details Date Type Department Care Team (Late Contact Info) Description 09/19/2014 Abstract [facility] [address] [place] [address] Danny Blackwell MD [address] [place], [place] [phone] Social History Tobacco Use Types Packs/Day Years [...] Contact Info) Description 04/25/2024 11:00 AM CUSTOMER RELATIONS REPRESENTATIVE Appointment [facility] [address] [place] [address] Ti Bonilla MD [address] [place] [phone] 05/23/2024 3:30 PM CUSTOMER RELATIONS REPRESENTATIVE [facility] [address] [place] [address] Jyoti Escobar MD [address] [place] [address] documented as of this encounter Visit Diagnoses Diagnosis Encounter for other specified aftercare documented in this encounter Additional Health Concerns Infection Onset Date Last Indicated Resolved Time MRSA Comment:Negative MRSA 05/201903/11/2017 03/11/2017 10/03/2019 10:08 AM CDT documented as of this encounter Care Teams Commercial Parts Professional Relationship Specialty Start Date End Date Vernon Mercedes MD [address] [place] [address] PCP - General FAMILY PRACTICE 10/27/15 12/02/21 [place] [address] CARDIOVASCULAR DISEASE 10/27/15 10/24/18 [place] [address] [place] Manager Of Care CARDIOVASCULAR DISEASE 08/19/16 [place] [address] CLINICAL CARDIAC ELECTROPHYSIOLOGY 06/16/17 Myah Handley, STONE [place] [address] CARDIOVASCULAR DISEASE 06/16/17 07/10/19 [place] [address] Case Mgr INTERVENTIONAL CARDIOLOGY 03/21/18 10/24/18 documented as of this encounter
--- OUTSIDE RECORDS SUMMARY | 2024-04-23 05:22 | XMS_ITS | Encounter Summary ---
Author Organization [facility] Address [address] [place] [address]. 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 [place] [address] Ti Bonilla MD [address] [place] [phone] 05/23/2024 3:30 PM ASSISTANT THERAPY AIDE Office Visit [facility] [address] [address] Jyoti Escobar MD [address] [place] [address] documented as of this encounter Visit Diagnoses Not on filedocumented in this encounter Care Teams Inventory Audit Clerk Relationship Specialty Start Date End Date Vernon Mercedes MD [address] [place] [phone] PCP - General FAMILY PRACTICE 10/27/15 12/02/21 Stanislaw Rhodes MD [address] [place] [address] CARDIOVASCULAR DISEASE 10/27/15 10/24/18 documented as of this encounter
--- OUTSIDE RECORDS SUMMARY | 2024-04-23 05:22 | XMS_ITS | Encounter Summary ---
Author Organization [facility] Address [address] [place] [address]. [place], [place] [address] [place] [address] Care Team Providers Care Band Splicer Name Role Phone Vernon Mercedes MD Primary Care Provider [phone] Stanislaw Rhodes MD Unavailable Unavailab Evaristo Ying MD Unavailable UnavailRaul Suresh MD Unavailable UnavailMyah Elena NP Unavailable Unavailable Deven Cleary MD Unavailable Unavailable Encounter Details Date Type Department Care Team (Late st Contact Info) Description 10/26/[address] [facility] [address] [place] [address] Vernon Mercedes MD [address] [place] [address] Social History Tobacco Use Types Packs/Day Years [...] st Contact Info) Description 04/25/2024 11:00 AM INCOME TAX RETURN PREPARER [facility]ointment [facility] [address] [place] [address] Ti Bonilla MD [address] [place] [phone] 05/23/2024 3:30 PM INCOME TAX RETURN PREPARER Office Visit [facility] [address] [place] [address] Jyoti Escobar MD [address] [place] [address] documented as of this encounter Visit Diagnoses Diagnosis Atrial fibrillation ([facility]/HCC HHS/HCC) Atrial fibrillation documented in this encounter Additional Health Concerns Infection Onset Date Last Indicated Resolved Time MRSA Comment:Negative MRSA 05/201903/11/2017 03/11/2017 10/03/2019 10:08 AM CDT documented as of this encounter Care Teams Band Splicer Relationship Specialty Start Date End Date Vernon Mercedes MD [address] [place] [address] PCP - General FAMILY PRACTICE 10/27/15 12/02/21 [place] [address] CARDIOVASCULAR DISEASE 10/27/15 10/24/18 [place] [address] Ethel Nurseryman Assistant CARDIOVASCULAR DISEASE 08/19/16 [place] [address] CLINICAL CARDIAC ELECTROPHYSIOLOGY 06/16/17 Myah Handley [employer] [place] [address] CARDIOVASCULAR DISEASE 06/16/17 07/10/19 [place] [address] Bookstore Clerk INTERVENTIONAL CARDIOLOGY 03/21/18 10/24/18 documented as of this encounter
--- OUTSIDE RECORDS SUMMARY | 2024-04-23 05:22 | XMS_ITS | Encounter Summary ---
Author Organization [facility] Address [address] [place] [address]. 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 [place] [address] Ti Bonilla MD [address] [place] [phone] 05/23/2024 3:30 PM CLIENT RELATION SPECIALIST Office Visit [facility] [address] [place] [phone] Jyoit Escobar MD [address] [place], [place] [address] documented as of this encounter Procedures Procedure Name Priority Date/Time Associated Diagnosis Comments POCT GLUCOSE - RAMOS DOCKED DEVICE Routine 05/19/2016 3:07 PM CLIENT RELATION SPECIALIST documented in this encounter Results * (ABNORMAL) POCT glucose (05/19/2016 3:07 PM CLIENT RELATION SPECIALIST) GLUCOSE POC 153(H) 70 - 109 05/19/2016 5:53 PM CLIENT RELATION SPECIALIST [facility] INTERFACE WHOLE BLOOD SPECIMEN / Unknown 05/19/2016 3:07 PM CLIENT RELATION SPECIALIST 05/19/2016 5:53 PM CLIENT RELATION SPECIALIST us Generic Conversion Md OSMAN POCT ORDERABLES - DEVIC E Final Result [facility] INTERFACE US documented in this encounter Visit Diagnoses Not on filedocumented in this encounter Additional Health Concerns Infection Onset Date Last Indicated Resolved Time MRSA Comment:Negative MRSA 05/201903/11/2017 03/11/2017 10/03/2019 10:08 AM CDT documented as of this encounter Care Teams Social Work Assistant Relationship Specialty Start Date End Date Vernon Mercedes MD [address] [place] [phone] PCP - General FAMILY PRACTICE 10/27/15 12/02/21 [place] [address] CARDIOVASCULAR DISEASE 10/27/15 10/24/18 [place] [address] [place] Clinical Research Technician CARDIOVASCULAR DISEASE 08/19/16 documented as of this encounter
--- OUTSIDE RECORDS SUMMARY | 2024-04-23 05:22 | XMS_ITS | Encounter Summary ---
Author Organization [facility] Address [address] [place] [address]. [place], [place] [address] [place] [address] Care Team Providers Care Process Control Manager Name Role Phone Vernon Mercedes MD Primary Care Provider [phone] Stanislaw Rhodes MD Unavailable Unavailab Evaristo Ying MD Unavailable UnavailRaul Suresh MD Unavailable UnavailMyah Elena NP Unavailable Unavailable Deven Cleary MD Unavailable Unavailable Encounter Details Date Type Department Care Team (Late st Contact Info) Description 09/16/2015 Abstract [facility] [address] [place] [address] Vernon Mercedes MD [address] [place] [address] Social History Tobacco Use Types Packs/Day Years [...] st Contact Info) Description 04/25/2024 11:00 AM MACHINIST INSTRUCTOR Appointment [facility] [address] [place] [address] Ti Bonilla MD [address] [place] [phone] 05/23/2024 3:30 PM MACHINIST INSTRUCTOR [facility] [address] [place] [address] Jyoti Escobar MD [address] [place] [address] documented as of this encounter Visit Diagnoses Diagnosis Atrial fibrillation (CMS/HCC HHS/HCC) Atrial fibrillation documented in this encounter Additional Health Concerns Infection Onset Date Last Indicated Resolved Time MRSA Comment:Negative MRSA 05/201903/11/2017 03/11/2017 10/03/2019 10:08 AM CDT documented as of this encounter Care Teams Process Control Manager Relationship Specialty Start Date End Date Vernon Mercedes MD [address] [place] [address] PCP - General FAMILY PRACTICE 10/27/15 12/02/21 [place] [address] CARDIOVASCULAR DISEASE 10/27/15 10/24/18 [place] [address] [place] Sander CARDIOVASCULAR DISEASE 08/19/16 [place] [address] CLINICAL CARDIAC ELECTROPHYSIOLOGY 06/16/17 Myah Handley L[place] [address] CARDIOVASCULAR DISEASE 06/16/17 07/10/19 [place] [address] Sales Analyst INTERVENTIONAL CARDIOLOGY 03/21/18 10/24/18 documented as of this encounter
--- OUTSIDE RECORDS SUMMARY | 2024-04-23 05:22 | XMS_ITS | Encounter Summary ---
Author Organization [facility] Address [address] [place] [address]. [place] [address] [place] [address] Care Team Providers Care Tar Boiler Name Role Phone Vernon Mercedes MD Primary Care Provider [phone] Stanislaw Rhodes MD Unavailable Unavailab le Reason for Referral * Consultation/Treatment (Routine) - Closed Specialty Diagnoses / Procedures Referred By Charito ledbetter Referred To Contact CARDIOLOGY Diagnoses Chest pain Procedures NM EXER NUC STRESS TEST 1DAY Stanislaw Rhodes MD [address] [place] [address] Referral ID Status Reason Start Date Expiration Date Visits Re quested Visits Authorized [id number] Closed 10/30/2015 11/28/2015 1 1 Encounter Details Date Type Department Care Team (Late st Contact Info) Description 10/30/2015 Orders Only [facility] [address] [place] [address] Stanislaw Rhodes MD Social History Tobacco Use [...] st Contact Info) Description 04/25/2024 11:00 AM TRAIN OPERATOR Appointment [facility] [address] [place] [address] Ti Bonilla MD [address] [place] [phone] 05/23/2024 3:30 PM TRAIN OPERATOR Office Visit [facility] [address] [place] [address] Jyoti Escobar MD [address] [place] [address] documented as of this encounter Procedures Procedure Name Priority Date/Time Associated Diagnosis Comments NM EXER NUC STRESS TEST 1 DAY W TRACING Routine 02/28/2018 2:48 PM TRAIN OPERATOR Chest pain documented in this encounter Results * NM EXER NUC STRESS TEST 1DAY (02/28/2018 2:48 PM TRAIN OPERATOR) Anatomical Region Laterality Modality Cardiac Nuclear Medicine us Stanislaw Rhodes MD NUC MED Edited Res ult - Final documented in this encounter Visit Diagnoses Diagnosis Chest pain- Primary Chest pain, unspecified documented in this encounter Care Teams Tar Boiler Relationship Specialty Start Date End Date Vernon Mercedes MD [address] [place] [phone] PCP - General FAMILY PRACTICE 10/27/15 12/02/21 Stanislaw Rhodes MD [address] [place] [address] CARDIOVASCULAR DISEASE 10/27/15 10/24/18 documented as of this encounter
--- OUTSIDE RECORDS SUMMARY | 2024-04-23 05:22 | XMS_ITS | Encounter Summary ---
Author Organization [facility] Address [address] [place] [address]. [place], [place] [address] [place] [address] Care Team Providers Care Digital Circuit Designer Name Role Phone Vernon Mercedes MD Primary Care Provider [phone] Stanislaw Rhodes MD Unavailable Unavailab Evaristo Ying MD Unavailable UnavailRaul Suresh MD Unavailable UnavailMyah Elena NP Unavailable Unavailable Deven Cleary MD Unavailable Unavailable Encounter Details Date Type Department Care Team (Late Contact Info) Description 12/06/2014 Abstract [facility] [address] [place] [address] Danny Blackwell MD [address] [place] [address] Social History Tobacco Use Types Packs/Day Years [...] (Late Contact Info) Description 04/25/2024 11:00 AM NOODLE MAKER Appointment [facility] [address] [place] [address] Ti Bonilla MD [address] [place] [phone] 05/23/2024 3:30 PM NOODLE MAKER [facility] [address] [place] [address] Jyoti Escobar MD [address] [place] [address] documented as of this encounter Visit Diagnoses Diagnosis Localized osteoarthrosis, lower leg Localized osteoarthrosis not specified whether primary or secondary, lower leg documented in this encounter Additional Health Concerns Infection Onset Date Last Indicated Resolved Time MRSA Comment:Negative MRSA 05/201903/11/2017 03/11/2017 10/03/2019 10:08 AM CDT documented as of this encounter Care Teams Digital Circuit Designer Relationship Specialty Start Date End Date Vernon Mercedes MD [address] [place] [address] PCP - General FAMILY PRACTICE 10/27/15 12/02/21 [place]islaw [place] [address] CARDIOVASCULAR DISEASE 10/27/15 10/24/18 [place] [address] [place] Reconciliation Accountant CARDIOVASCULAR DISEASE 08/19/16 [place] [address] CLINICAL CARDIAC ELECTROPHYSIOLOGY 06/16/17 Myah Handley [place] [address] CARDIOVASCULAR DISEASE 06/16/17 07/10/19 [place] [address] Manager Environmental Services INTERVENTIONAL CARDIOLOGY 03/21/18 10/24/18 documented as of this encounter
--- OUTSIDE RECORDS SUMMARY | 2024-04-23 05:22 | XMS_ITS | Encounter Summary ---
Author Organization [facility] Address [address] [place] [address]. 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 [place] [address] Ti Bonilla MD [address] [place] [phone] 05/23/2024 3:30 PM SHOE CUTTER Office Visit [facility] [address] [place] [address] Jyoti Escobar MD [address] [place] [address] documented as of this encounter Procedures Procedure Name Priority Date/Time Associated Diagnosis Comments ORDER FRESH FROZEN PLASMA Routine 05/19/2016 8:55 AM SHOE CUTTER documented in this encounter Results * Order fresh frozen plasma (05/19/2016 8:55 AM SHOE CUTTER) UNITS ORDERED 4 05/19/2016 8:58 AM SHOE CUTTER [facility] 05/19/2016 8:55 AM SHOE CUTTER 05/19/2016 11:00 AM SHOE CUTTER us Generic Conversion Md OSMAN BLOOD BANK PRODUCT ORDE [facility] Final Result Performing Organization Address City/State/[facility] Co de Phone Number [facility] [address] [place] [address], [id number] documented in this encounter Visit Diagnoses Not on filedocumented in this encounter Additional Health Concerns Infection Onset Date Last Indicated Resolved Time MRSA Comment:Negative MRSA 05/201903/11/2017 03/11/2017 10/03/2019 10:08 AM CDT documented as of this encounter Care Teams Sensor Technician Relationship Specialty Start Date End Date [place] [address] PCP - General FAMILY PRACTICE 10/27/15 12/02/21 [place] [address] CARDIOVASCULAR DISEASE 10/27/15 10/24/18 Evaristo Allan MD [address] [place] [address] [employer] Sports Coach CARDIOVASCULAR DISEASE 08/19/16 documented as of this encounter
--- OUTSIDE RECORDS SUMMARY | 2024-04-23 05:22 | XMS_ITS | Encounter Summary ---
Author Organization [facility] Address [address] [place] [address]. [place], [place] [address] [place] [address] Care Team Providers Care Stretcher Helper Name Role Phone Vernno Mercedes MD Primary Care Provider [phone] Stanislaw Rhodes MD Unavailable Unavailab Evaristo Ying MD Unavailable Unavailabl e Encounter Details Date Type Department Care Team (Late Contact Info) Description 05/19/2016 Abstract [facility] G[facility] [address] [place] [address] Raul Santana MD Social History Tobacco Use [...] Info) Description 04/25/2024 11:00 AM DIRECTOR OF LITIGATION Appointment [facility] [address] [place] [address] [place] [address] Ti Bonilla MD [address] [place] [phone] 05/23/2024 3:30 PM DIRECTOR OF LITIGATION Office Visit [facility] [address] [place] [address] Jyoti Escobar MD [address] [place] [address] documented as of this encounter Visit Diagnoses Diagnosis Atrial fibrillation (CMS/HCC HHS/HCC) Atrial fibrillation documented in this encounter Additional Health Concerns Infection Onset Date Last Indicated Resolved Time MRSA Comment:Negative MRSA 05/201903/11/2017 03/11/2017 10/03/2019 10:08 AM CDT documented as of this encounter Care Teams Stretcher Helper Relationship Specialty Start Date End Date Vernon Mercedes MD [address] [place] [phone] PCP - General FAMILY PRACTICE 10/27/15 12/02/21 [place] [address] CARDIOVASCULAR DISEASE 10/27/15 10/24/18 [place] [address] [employer] Heavy Equipment Operator CARDIOVASCULAR DISEASE 08/19/16 documented as of this encounter
--- OUTSIDE RECORDS SUMMARY | 2024-04-23 05:22 | XMS_ITS | Encounter Summary ---
Author Organization [facility] Address [address] [place] [address]. [place], [place] [address] [place] [address] Care Team Providers Care Sand Screener Name Role Phone Vernon Mercedes MD Primary Care Provider [phone] Stanislaw Rhodes MD Unavailable Unavailab Evaristo Ying MD Unavailable Unavailabl Raul Duran MD Unavailable Unavailabl Myah Gee NP Unavailable Unavailable Encounter Details Date Type Department Care Team (Latest Contact Info) Description 08/23/2014 Abstract [facility] Dnany Blackwell MD [address] [place] [address] Social History Tobacco Use Types Packs/Day [...] Contact Info) Description 04/25/2024 11:00 AM MANAGER FIELD SALES Appointment [facility] [place] [address] Ti Bonilla MD [address] [place] [phone] 05/23/2024 3:30 PM MANAGER FIELD SALES Office Visit [facility] [address] [place] [phone] Jyoti Escobar MD [address] [place] [address] documented as of this encounter Visit Diagnoses Not on filedocumented in this encounter Additional Health Concerns Infection Onset Date Last Indicated Resolved Time MRSA Comment:Negative MRSA 05/201903/11/2017 03/11/2017 10/03/2019 10:08 AM CDT documented as of this encounter Care Teams Sand Screener Relationship Specialty Start Date End Date Vernon Mercedes MD [address] [place] [address] PCP - General FAMILY PRACTICE 10/27/15 12/02/21 Stanislaw Rhodes MD [address] [place] [address] CARDIOVASCULAR DISEASE 10/27/15 10/24/18 Evaristo Allan MD [address] [place] [address] [place] Neurology Director CARDIOVASCULAR DISEASE 08/19/16 Raul Santana MD [address] [place] [address] CLINICAL CARDIAC ELECTROPHYSIOLOGY 06/16/17 Myah Handley NP [address] [place] [address] CARDIOVASCULAR DISEASE 06/16/17 07/10/19 documented as of this encounter
--- OUTSIDE RECORDS SUMMARY | 2024-04-23 05:22 | XMS_ITS | Encounter Summary ---
Author Organization [facility] Address [address] [place] [address]. [place], [place] [address] [place] [address] Care Team Providers Care Cementer Machine Applicator Name Role Phone Vernon Mercedes MD Primary Care Provider Stanislaw Rhodes MD Unavailable Unavailab Evaristo Ying MD Unavailable UnavailRaul Suresh MD Unavailable UnavailMyah Elena NP Unavailable Unavailable Deven Cleary MD Unavailable Unavailable Encounter Details Date Type Department Care Team (Late st Contact Info) Description 09/19/[address] [facility] [address] [place] [address] Vernon Mercedes MD [address] [place] [phone] Social History Tobacco Use Types Packs/Day Years [...] st Contact Info) Description 04/25/2024 11:00 AM ACCOUNTS PAYABLE MANAGER Appointment [facility] [address] [place] [address] Ti Bonilla MD [address] [place] [phone] 05/23/2024 3:30 PM ACCOUNTS PAYABLE MANAGER [facility] [address] [place] [address] Jyoti Escobar MD [address] [place] [address] documented as of this encounter Visit Diagnoses Diagnosis Atrial fibrillation (CMS/HCC HHS/HCC) Atrial fibrillation documented in this encounter Additional Health Concerns Infection Onset Date Last Indicated Resolved Time MRSA Comment:Negative MRSA 05/201903/11/2017 03/11/2017 10/03/2019 10:08 AM CDT documented as of this encounter Care Teams Cementer Machine Applicator Relationship Specialty Start Date End Date [place] [address] PCP - General FAMILY PRACTICE 10/27/15 12/02/21 [place] [address] CARDIOVASCULAR DISEASE 10/27/15 10/24/18 [place] [address] [place] [facility] Benefit Manager CARDIOVASCULAR DISEASE 08/19/16 [place] [address] CLINICAL CARDIAC ELECTROPHYSIOLOGY 06/16/17 Myah Handley INDUSTRIAL [place]ERIAL [place] [address] CARDIOVASCULAR DISEASE 06/16/17 07/10/19 [place] [address] Weather Forcaster INTERVENTIONAL CARDIOLOGY 03/21/18 10/24/18 documented as of this encounter
--- OUTSIDE RECORDS SUMMARY | 2024-04-23 05:22 | XMS_ITS | Encounter Summary ---
Author Organization [facility] Address [address] [place] [address]. [place], [place] [address] [place] [address] Care Team Providers Care Technical Delivery Manager Name Role Phone Vernon Mercedes MD Primary Care Provider [phone] Stanislaw Rhodes MD Unavailable Unavailab Evaristo Ying MD Unavailable UnavailRaul Suresh MD Unavailable UnavailMyah Elena NP Unavailable Unavailable Deven Cleary MD Unavailable Unavailable Encounter Details Date Type Department Care Team (Late Contact Info) Description 03/09/2016 Abstract [facility] [address] [place] [address] Danny Blackwell MD [address] [place] [address] Social History Tobacco Use Types [...] (Late Contact Info) Description 04/25/2024 11:00 AM RESEARCH INTERVIEWER Appointment [facility] [address] [facility] [place] [address] Ti Bonilla MD [address] [place] [address] 05/23/2024 3:30 PM RESEARCH INTERVIEWER [facility] [address] [place] [address] Jyoti Escobar MD [address] [place] [address] documented as of this encounter Visit Diagnoses Diagnosis Encounter for follow-up examination after completed treatment for conditions other than malignant neoplasm documented in this encounter Additional Health Concerns Infection Onset Date Last Indicated Resolved Time MRSA Comment:Negative MRSA 05/201903/11/2017 03/11/2017 10/03/2019 10:08 AM CDT documented as of this encounter Care Teams Technical Delivery Manager Relationship Specialty Start Date End Date Vernon Mercedes MD [address] [place] [address] PCP - General FAMILY PRACTICE 10/27/15 12/02/21 [place] [address] CARDIOVASCULAR DISEASE 10/27/15 10/24/18 [place] [address] [place] Scheduling Agent CARDIOVASCULAR DISEASE 08/19/16 [place] [address] CLINICAL CARDIAC ELECTROPHYSIOLOGY 06/16/17 [place] [address] CARDIOVASCULAR DISEASE 06/16/17 07/10/19 [place] [address] Cloud Architect INTERVENTIONAL CARDIOLOGY 03/21/18 10/24/18 documented as of this encounter
--- OUTSIDE RECORDS SUMMARY | 2024-04-23 05:22 | XMS_ITS | Encounter Summary ---
Author Organization [facility] Address [address] [place] [address]. [place], [place] [address] [place], [place] [phone] Care Team Providers Care Sewing Machine Adjuster Name Role Phone Vernon Mercedes MD Primary Care Provider [phone] Stanislaw Rhodes MD Unavailable Unavailab Elza Ying MD Unavailable UnavailRaul Suresh MD Unavailable Unavailabl Myah Gee NP Unavailable Unavailable Encounter Details Date Type Department Care Team (Late st Contact Info) Description 12/06/2014 Abstract [facility] [address] [place] [phone] Danny Blackwell MD [address] [place] [address] Social History Tobacco Use Types Packs/Day Years Used Date Smoking Tobacco: Never Assessed Sex and Gender Information Value Date Recorded Sex Assigned at Not on file Legal Sex Male 10:30 AM CDT Gender Identity Not on file Sexual Orientation Not on file documented as of this encounter Procedure Notes * Danny Blackwell MD - 12/06/2014 7:01 PM CDT [address] [address] Patient: ELZA MCKEON [facility] Rec#: [id number] Birthdate: 1960 Admit/Svce Date: 12/06/2014 Disch Date: 12/10/2014 Attending Md: DANNY BLACKWELL MD (TRACY) OPERATIVE REPORT PATIENT: Elza Mckeon : 1960 MR #: [id number] Surgery Date: 12/06/2014 Chart Document DATE: 12/06/2014 [...] were correct x2 following the procedure. BLAYNE/kirsten [id number] P P [id number] cc: MD Danny Caballero MD Carl Painter, MD CP/[facility] [id number] E-Signed By P Danny Blackwell MD 12/17/2014 01:54 P P [id number] cc: MD Danny Caballero MD Carl Painter, MD documented in this encounter Plan of Treatment Upcoming Encounters Date Type Department Care Team (Late st Contact Info) Description 04/25/2024 11:00 AM PANEL COVERER Appointment [facility] [address] [place] [address] Ti Bonilla MD [address] [place] [phone] 05/23/2024 3:30 PM PANEL COVERER Office Visit [facility] [address] [place] [phone] Jyoti Escobar MD [address] [place] [address] documented as of this encounter Visit Diagnoses Not on filedocumented in this encounter Additional Health Concerns Infection Onset Date Last Indicated Resolved Time MRSA Comment:Negative MRSA 05/201903/11/2017 03/11/2017 10/03/2019 10:08 AM CDT documented as of this encounter Care Teams Sewing Machine Adjuster Relationship Specialty Start Date End Date Vernon Mercedes MD [facility] [place] [phone] PCP - General FAMILY PRACTICE 10/27/15 12/02/21 Stanislaw Rhodes MD [address] [place] [address] CARDIOVASCULAR DISEASE 10/27/15 10/24/18 Elza Allan MD [address] [place] [phone] [place] [employer]er CARDIOVASCULAR DISEASE 08/19/16 Raul Santana MD [address] [place] [phone] CLINICAL CARDIAC ELECTROPHYSIOLOGY 06/16/17 Myah Handley SUPPLEMENTAL MANAGER [address] [place] [address] CARDIOVASCULAR DISEASE 06/16/17 07/10/19 documented as of this encounter
--- OUTSIDE RECORDS SUMMARY | 2024-04-23 05:22 | XMS_ITS | Encounter Summary ---
Author Organization [facility] Address [address] [place] [address]. [place], [place] [address] [place] [address] Care Team Providers Care Sports Lawyer Name Role Phone Vernon Mercedes MD Primary Care Provider [phone] Stanislaw Rhodes MD Unavailable Unavailab Evaristo Ying MD Unavailable UnavailRaul Suresh MD Unavailable UnavailMyah Elena NP Unavailable Unavailable Deven Cleary MD Unavailable Unavailable Encounter Details Date Type Department Care Team (Late st Contact Info) Description 10/15/[address] [facility] [address] [place] [address] Vernon Mercedes MD [address] [place] [phone] Social History Tobacco Use Types Packs/Day Years [...] (Late Contact Info) Description 04/25/2024 11:00 AM BATH DESIGN SALES CONSULTANT Appointment [facility] [address] [place] [address] Ti Bonilla MD [address] [place] [phone] 05/23/2024 3:30 PM BATH DESIGN SALES CONSULTANT Office Visit [facility] [address] [place] [address] Jyoti Escobar MD [address] [place] [address] documented as of this encounter Visit Diagnoses Diagnosis Atrial fibrillation ([facility]/HCC HHS/HCC) Atrial fibrillation documented in this encounter Additional Health Concerns Infection Onset Date Last Indicated Resolved Time MRSA Comment:Negative MRSA 05/201903/11/2017 03/11/2017 10/03/2019 10:08 AM CDT documented as of this encounter Care Teams Sports Lawyer Relationship Specialty Start Date End Date Vernon Mercedes MD [address] [place] [address] PCP - General FAMILY PRACTICE 10/27/15 12/02/21 [place] [address] CARDIOVASCULAR DISEASE 10/27/15 10/24/18 [place] [address] [place] Electrician'S Helper CARDIOVASCULAR DISEASE 08/19/16 [place] [address] CLINICAL CARDIAC ELECTROPHYSIOLOGY 06/16/17 [place] [address] CARDIOVASCULAR DISEASE 06/16/17 07/10/19 [place] [address] Telex Operator INTERVENTIONAL CARDIOLOGY 03/21/18 10/24/18 documented as of this encounter
--- OUTSIDE RECORDS SUMMARY | 2024-04-23 05:22 | XMS_ITS | Encounter Summary ---
Author Organization [facility] Address [address] [place] [address]. [place], [place] [address] [place] [address] Care Team Providers Care Skilled Labor Name Role Phone Vernon Mercedes MD Primary Care Provider [phone] Stanislaw Rhodes MD Unavailable Unavailab Elza Ying MD Unavailable UnavailRaul Suresh MD Unavailable Unavailabl Myah Gee NP Unavailable Unavailable Encounter Details Date Type Department Care Team (Late st Contact Info) Description 11/26/2015 Abstract [facility] [address] [place] [address] Danny Steiner MD [address] [place], [place] [phone] Social History Tobacco Use Types Packs/Day Years [...] Amoxicillin-Pot Clavulanate 875-125 MG Oral Tablet; Therapy: 67Mvf7274 to Recorded 2. Atenolol TABS; Therapy: (Recorded:26Dut5804) to Recorded 3. Atorvastatin Calcium 40 MG Oral Tablet; Therapy: 26Jun2014 to Recorded 4. HumaLOG 100 UNIT/ML Subcutaneous Solution; Therapy: 52Yun8385 to Recorded 5. Hydrocodone-Acetaminophen 5-325 MG Oral Tablet; Therapy: 19Jun2014 to Recorded 6. Hydrocodone-Acetaminophen 7.5-325 MG Oral Tablet ([place]); 1 q 6 hrs prn pain; Therapy: 86Dhc8799 to (Last Rx:21Jan2015) Ordered 7. Hydrocodone-Acetaminophen 7.5-325 MG Oral Tablet; TAKE 1 TABLET EVERY 6 HOURS NEEDED; Therapy: 09Ckn1387 to (Evaluate:29Jan2015); Last Rx:21Jan2015 Ordered 8. Levemir 100 UNIT/ML Subcutaneous Solution; Therapy: (Recorded:60Dcz4568) to Recorded 9. MetFORMIN HCl TABS; Therapy: (Recorded:59Cvm5594) to Recorded 10. Naprosyn TABS (Naproxen); Therapy: (Recorded:06Tui7394) to Recorded 11. Oxybutynin Chloride 5 MG Oral Tablet; Therapy: 21Jun2014 to Recorded 12. Ranitidine HCl TABS; Therapy: (Recorded:58Hiw5176) to Recorded 13. Sure Comfort Insulin Syringe 31G X 5/16 0.3 ML Miscellaneous; Therapy: 15Oct2013 to Recorded 14. Sure Comfort Insulin Syringe 31G X 5/16 1 ML Miscellaneous; Therapy: 02Jul2014 to Recorded 15. Tamsulosin HCl - 0.4 MG Oral Capsule; Therapy: (Recorded:29Deu0303) to Recorded 16. TraMADol HCl TABS; Therapy: (Recorded:43Jqr7444) to Recorded 17. TRUEplus Lancets 28G Miscellaneous; Therapy: 38Ged3617 to Recorded Allergies 1. Tetracyclines Physical Exam [...] with our present treatment plan.; Status:Complete; Done: 35Lax2748 09:28AM 4. You may continue or resume your normal level of activity.; Status:Complete; Done: 56Uag1693 09:28AM 5. XR Knee 1 to 2 View Rt; Status:Canceled; Right knee pain 6. MethylPREDNISolone 4 MG Oral Tablet Therapy Pack (Medrol); as directed I have provided him a dose pack. I don't see any evidence of mechanical failure in his RIGHT TKA. He'll return in 3 months unless thing worsen. Signatures Electronically signed by : Danny Steiner M.D.; Nov 27 2015 9:28AM DRESS CAP MAKER (Author) documented in this encounter Plan of Treatment Upcoming Encounters Date Type Department Care Team (Late st Contact Info) Description 04/25/2024 11:00 AM DRESS CAP MAKER Appointment [facility] [address] [facility] [place] [address] Ti Bonilla MD [address] [place] [phone] 05/23/2024 3:30 PM DRESS CAP MAKER Office Visit [facility] [address] [place] [phone] Jyoti Escobar MD [address] [place] [address] documented as of this encounter Procedures Procedure Name Priority Date/Time Associated Diagnosis Comments XR KNEE STAND AP VANITA ONLY Routine 11/26/2015 3:49 PM CDT IMAGE GENERIC Routine 11/26/2015 3:49 PM CDT documented in this encounter Results * IMAGE GENERIC (11/26/2015 3:49 PM CDT) Anatomical Region Laterality Modality Other 11/26/2015 3:49 PM CDT 11/26/2015 3:49 PM CDT Narrative 11/26/2015 3:53 PM CDT [facility] ?? [address] [place] [address] ?? [place], [place] ? Patient Name: ELZA MCKEON Date of : 1960 ?? Med Rec #: [id number] ??Age/Sex: 55/M ?Pt. Location: ORTHO ?? Attending Provider: DANNY STEINER MD (TRACY) ?? Ordering Provider: DANNY STEINER MD (TRACY) ? Study Date Order Number Procedure ?? 11/26/15 1618-2330 XR Knee Standing Bi ? Signed ? [...] ?? in good position with expected alignment. [place] views reveal both left and right patella [...] Procedure Note Stephani Luz MD - 02/09/[address] Patient Name: ELZA MCKEON Date of : 1960 Med Rec #: [id number] Age/Sex: 55/M Pt. Location: ORTHO Attending Provider: DANNY STEINER MD (TRACY) Ordering Provider: DANNY STEINER MD (TRACY) Study Date Order Number Procedure 11/26/15 [id number] XR Knee Standing Bi Signed 3 VIEWS OF BILATERAL KNEES Clinical History: Pain Comparison: None 3 views of bilateral knees reveal total arthroplasty changes within boththe right and left knee. The obtained images demonstrate no evidence of fracture. There isno evidence to suggest hardware loosening as there is no lucency surrounding the hardwarecomponents. Components are in good position with expected alignment. [place] views reveal both leftand right patella to [...] PM CDT Narrative 11/26/2015 3:53 PM CDT [facility] ?? [address] [facility] ?? [place] ? Patient Name: ELZA MCKEON Date of : 1960 ?? Med Rec #: [id number] ??Age/Sex: 55/M ?Pt. Location: ORTHO ?? Attending Provider: DANNY STEINER MD (TRACY) ?? Ordering Provider: DANNY STEINER MD (TRACY) ? Study Date Order Number Procedure ?? 11/26/15 [id number] XR Knee Standing Bi ? Signed ? [...] ?? in good position with expected alignment. [place] views reveal both left and right patella [...] Procedure Note Stephani Luz MD - 02/09/[address] [place] Patient Name: ELZA MCKEON Date of : 1960 Med Rec #: [id number] Age/Sex: 55/M Pt. Location: ORTHO Attending Provider: DANNY STEINER MD (TRACY) Ordering Provider: DANNY TSEINER MD (TRACY) Study Date Order Number Procedure 11/26/15 [id number] XR Knee Standing Bi Signed 3 VIEWS OF BILATERAL KNEES Clinical History: Pain Comparison: None 3 views of bilateral knees reveal total arthroplasty changes within boththe right and left knee. The obtained images demonstrate no evidence of fracture. There isno evidence to suggest hardware loosening as there is no lucency surrounding the hardwarecomponents. Components are in good position with expected alignment. [place] views reveal both leftand right patella to reside in the expected location. No significant effusion is seen.Overall, the surrounding soft tissues appear normal IMPRESSION: Expected postoperative appearance of both knees Electronically Signed By: KENYETTA ALEMAN MD 11/26/15 1552 Dictated On: 11/26/15 1547 Interpreted By: KENYETTA ALEMAN MD Transcribed On: 11/26/15 1549 - INFCE us Danny Steiner MD GENERAL IMAGING Final Result documented in this encounter Visit Diagnoses Not on filedocumented in this encounter Additional Health Concerns Infection Onset Date Last Indicated Resolved Time MRSA Comment:Negative MRSA 05/201903/11/2017 03/11/2017 10/03/2019 10:08 AM CDT documented as of this encounter Care Teams Skilled Labor Relationship Specialty Start Date End [place] [address] PCP - General FAMILY PRACTICE 10/27/15 12/02/21 [place] [address] CARDIOVASCULAR DISEASE 10/27/15 10/24/18 [place] [place] [phone] [place] [employer]ushi Chef CARDIOVASCULAR DISEASE 08/19/16 Raul [place] [address] [address] CLINICAL CARDIAC ELECTROPHYSIOLOGY 06/16/17 Myah Handley, [place] [address] CARDIOVASCULAR DISEASE 06/16/17 07/10/19 documented as of this encounter
--- OUTSIDE RECORDS SUMMARY | 2024-04-23 05:22 | XMS_ITS | Encounter Summary ---
Author Organization [facility] Address [address] [place] [address]. 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 documented in this encounter Plan of Treatment Upcoming Encounters Date Type Department Care Team (Late st Contact Info) Description 04/25/2024 11:00 AM SEWAGE DISPOSAL WORKER Appointment [facility] [address] [place] [address] Ti Bonilla MD [address] [place] [phone] 05/23/2024 3:30 PM SEWAGE DISPOSAL WORKER Office Visit [facility] [address] [place] [phone] Jyoti Escobar MD [address] [place] [address] documented as of this encounter Visit Diagnoses Not on filedocumented in this encounter Care Teams Light Rail Transit Operator Relationship Specialty Start Date End Date Vernon Mercedes MD [address] [place] [address] PCP - General FAMILY PRACTICE 10/27/15 12/02/21 Stanislaw Rhodes MD [address] [place] [address] CARDIOVASCULAR DISEASE 10/27/15 10/24/18 documented as of this encounter
--- OUTSIDE RECORDS SUMMARY | 2024-04-23 05:22 | XMS_ITS | Encounter Summary ---
Author Organization [facility] Address [address] [place] [address]. [place], [place] [address] [place] [address] Care Team Providers Care Log Roper Name Role Phone Vernon Mercedes MD Primary Care Provider [phone] Stanislaw Rhodes MD Unavailable Unavailab Elza Ying MD Unavailable UnavailRaul Suresh MD Unavailable Unavailabl Myah Gee NP Unavailable Unavailable Encounter Details Date Type Department Care Team (Late st Contact Info) Description 03/04/2015 Abstract [place] [address] [place] [address] Danny Steiner MD [address] [place], [place] [id number] Social History Tobacco Use Types Packs/Day Years [...] Danny Steiner M.D.; Mar 04 2015 11:55AM INSTRUMENT TECHNOLOGIST (Author) documented in this encounter Plan of Treatment Upcoming Encounters Date Type Department Care Team (Late st Contact Info) Description 04/25/2024 11:00 AM INSTRUMENT TECHNOLOGIST Appointment [facility] [address] [place] [address] [place] [address] Ti Bonilla MD [address] [place] [phone] 05/23/2024 3:30 PM INSTRUMENT TECHNOLOGIST Office Visit [facility] [address] [place] [address] Jyoti Escobar MD [address] [place] [address] documented as of this encounter Procedures Procedure Name Priority Date/Time Associated Diagnosis Comments SURG XR KNEE LT 1-2V Routine 03/04/2015 1:06 PM INSTRUMENT TECHNOLOGIST XR KNEE STAND AP VANITA ONLY Routine 03/04/2015 1:02 PM INSTRUMENT TECHNOLOGIST documented in this encounter Results * SURG XR KNEE LT 1-2V (03/04/2015 1:06 PM INSTRUMENT TECHNOLOGIST) Anatomical Region Laterality Modality Knee IMAGES ONLY 03/04/2015 1:06 PM INSTRUMENT TECHNOLOGIST 03/04/2015 1:06 PM INSTRUMENT TECHNOLOGIST Narrative 03/04/2015 1:10 PM INSTRUMENT TECHNOLOGIST [facility] ?? [address] ?? [place], [place] ? Patient Name: ELZA MCKEON Date of : 1960 ?? Med Rec #: [id number] ??Age/Sex: 55/M ?Pt. Location: ORTHO ?? Attending Provider: DANNY STEINER MD (TRACY) ?? Ordering Provider: DANNY STEINER MD (TRACY) ? Study Date Order Number Procedure ?? 03/04/15 [id number] XR Knee 1 to 2 Views Lt [...] Procedure Note Stephani Luz MD - 02/10/2018 [place] [id number] [place] Patient Name: ELZA MCKEON Date of : 1960 Med Rec #: [id number] Age/Sex: 55/M Pt. Location: ORTHO Attending Provider: DANNY STEINER MD (TRACY) Ordering Provider: DANNY STEINER MD (TRACY) Study Date Order Number Procedure 03/04/15 [id number] XR Knee 1 to 2 Views Lt [...] STAND AP VANITA ONLY (03/04/2015 1:02 PM INSTRUMENT TECHNOLOGIST) Anatomical Region Laterality Modality Knee Radiographic Shannan ging 03/04/2015 1:02 PM INSTRUMENT TECHNOLOGIST 03/04/2015 1:02 PM INSTRUMENT TECHNOLOGIST Narrative 03/04/2015 1:07 PM INSTRUMENT TECHNOLOGIST [facility] ?? [address] [place] [address] ?? [place], [place] ? Patient Name: ELZA MCKEON Date of : 1960 ?? Med Rec #: [id number] ??Age/Sex: 55/M ?Pt. Location: ORTHO ?? Attending Provider: DANNY STEINER MD (TRACY) ?? Ordering Provider: DANNY STEINER MD (TRACY) ? Study Date Order Number Procedure ?? 03/04/15 [id number] XR Knee Standing Bi ? Signed ? [...] Procedure Note Stephani Luz MD - 02/09/[address] Patient Name: ELZA MCKEON Date of : 1960 Med Rec #: [id number] Age/Sex: 55/M Pt. Location: ORTHO Attending Provider: DANNY STEINER MD (TRACY) Ordering Provider: DANNY STEINER MD (TRACY) Study Date Order Number Procedure 03/04/15 [id number] XR Knee Standing Bi Signed 03/04/2015, 8:48 [...] documented as of this encounter Care Teams Log Roper Relationship Specialty Start Date End [place] [address] PCP - General FAMILY PRACTICE 10/27/15 12/02/21 [place] [address] CARDIOVASCULAR DISEASE 10/27/15 10/24/18 [place] [place] [phone] [place] Motion Graphics Artist CARDIOVASCULAR DISEASE 08/19/16 Ra[place] [address] CLINICAL CARDIAC ELECTROPHYSIOLOGY 06/16/17 [place] [place] [address] CARDIOVASCULAR DISEASE 06/16/17 07/10/19 documented as of this encounter
--- OUTSIDE RECORDS SUMMARY | 2024-04-23 05:22 | XMS_ITS | Encounter Summary ---
Author Organization [facility] Address [address] [place] [address]. [place], [place] [address] [place], [place] [address] Care Team Providers Care Barber Instructor Name Role Phone Vernon Mercedes MD Primary Care Provider [phone] Stanislaw Rhodes MD Unavailable Unavailab Evaristo Ying MD Unavailable UnavailRaul Suresh MD Unavailable UnavailMyah Elena NP Unavailable Unavailable Encounter Details Date Type Department Care Team (Late st Contact Info) Description 09/04/2014 Abstract [facility] [address] [place] [address] Danny Blackwell MD [address] [place], [place] [phone] Social History Tobacco Use Types Packs/Day Years [...] Danny Blackwell M.D.; Sep 04 2014 4:52PM ASSISTED LIVING NURSING DIRECTOR (Author) documented in this encounter Plan of Treatment Upcoming Encounters Date Type Department Care Team (Late st Contact Info) Description 04/25/2024 11:00 AM ASSISTED LIVING NURSING DIRECTOR Appointment [facility] [address] Ti Bonilla MD [address] [place] [address] 05/23/2024 3:30 PM ASSISTED LIVING NURSING DIRECTOR Office Visit [facility] [address] [place] [address] Jyoti Escobar MD [address] [place] [address] documented as of this encounter Visit Diagnoses Not on filedocumented in this encounter Additional Health Concerns Infection Onset Date Last Indicated Resolved Time MRSA Comment:Negative MRSA 05/201903/11/2017 03/11/2017 10/03/2019 10:08 AM CDT documented as of this encounter Care Teams Barber Instructor Relationship Specialty Start Date End Date Vernon Mercedes MD [address] [place] [address] PCP - General FAMILY PRACTICE 10/27/15 12/02/21 Stanislaw Rhodes MD [address] [place] [address] CARDIOVASCULAR DISEASE 10/27/15 10/24/18 Evaristo Allan MD [address] [place] [address] [place] Tanker Driver CARDIOVASCULAR DISEASE 08/19/16 [place] [place] [address] CLINICAL CARDIAC ELECTROPHYSIOLOGY 06/16/17 Myah Handley NP [address] [place] [address] CARDIOVASCULAR DISEASE 06/16/17 07/10/19 documented as of this encounter
--- OUTSIDE RECORDS SUMMARY | 2024-04-23 05:22 | XMS_ITS | Encounter Summary ---
Author Organization [facility] Address [address] [place] [address]. [place], [place] [address] [place] [address] Care Team Providers Care Star Route Mail Driver Name Role Phone Vernon Mercedes MD Primary Care Provider [phone] Stanislaw Rhodes MD Unavailable Unavailab Evaristo Ying MD Unavailable UnavailRaul Suresh MD Unavailable UnavailMyah Elena NP Unavailable Unavailable Deven Cleary MD Unavailable Unavailable Danny Blackwell MD Unavailable [phone] Gayle Arce APRN, PIECE GOODS PACKER-C Unavailable [phone] Ti Bonilla MD Primary Care Provider [phone] Mendel Shah DPM Unavailable [phone] Jyoti Escobar MD Unavailable [phone] Encounter Details Date Type Department Care Team (Late st Contact Info) Description 09/26/2015 Abstract [facility] AT [address] [place] [place] [phone] Valeriy Florian MD [address] [place] [address], [address] [place], [place] [phone] Social History Tobacco Use Types Packs/Day Years [...] st Contact Info) Description 04/25/2024 11:[address] [facility] [address] [place] [address] Ti Bonilla MD [address] [place] [phone] 05/23/2024 3:30 PM CYCLE MANAGER Office Visit [facility] [address] [place] [phone] Jyoti Escobar MD [address] [place] [address] documented as of this encounter Visit Diagnoses Not on filedocumented in this encounter Additional Health Concerns Infection Onset Date Last Indicated Resolved Time MRSA Comment:Negative MRSA 05/201903/11/2017 03/11/2017 10/03/2019 10:08 AM CDT COVID-19 Rule Out 10/12/2019 10/12/2019 10/13/2019 9:43 PM CDT COVID-19 Rule Out 04/16/2021 04/16/2021 04/16/2021 12:50 PM CYCLE MANAGER COVID-19 Confirmed 04/16/2021 04/16/2021 12:32 AM CYCLE MANAGER COVID-19 Rule Out 05/23/2021 05/23/2021 05/25/2021 3:02 PM CYCLE MANAGER COVID-19 Rule Out 05/25/2021 05/25/2021 05/26/2021 3:50 AM CYCLE MANAGER COVID-19 Rule Out 08/31/2021 08/31/2021 09/01/2021 8:03 PM CDT COVID-19 Rule Out 11/14/2021 11/14/2021 11/14/2021 6:17 PM CDT documented as of this encounter Care Teams Star Route Mail Driver Relationship Specialty Start Date End Date Vernon Mercedes MD [address] [place] [address] PCP - General FAMILY PRACTICE 10/27/15 12/02/21 Ti Bonilla MD [address] [place] [phone] PCP - General FAMILY PRACTICE 12/03/21 Stanislaw Rhodes MD [address] [place] [address] CARDIOVASCULAR DISEASE 10/27/15 10/24/18 Evaristo Allan MD [address] [place] [address] [place] Production Line Worker CARDIOVASCULAR DISEASE 08/19/16 Raul Santana MD [facility] [place] [address] CLINICAL CARDIAC ELECTROPHYSIOLOGY 06/16/17 Myah Handley, PIECE GOODS PACKER [address] [place] [address] CARDIOVASCULAR DISEASE 06/16/17 07/10/19 Deven Cleary MD [facility] [place] [address] Director Nicu INTERVENTIONAL CARDIOLOGY 03/21/18 10/24/18 Danny Blackwell MD 5 [place] [address] ORTHOPAEDIC SURGERY 05/01/19 Gayle Arce, CALCULATING MACHINE MECHANIC, PIECE GOODS PACKER-C [address] [facility] [address] [place] [address] NURSE PRACTITIONER 03/03/20 Mendel Shah, DPM [address] [place] [address] Consulting Physician PODIATRY/SURGERY 06/27/23 06/26/24 Jyoti Escobar MD [address] [place] [address] INTERVENTIONAL CARDIOLOGY 12/27/23 documented as of this encounter
--- OUTSIDE RECORDS SUMMARY | 2024-04-23 05:22 | XMS_ITS | Encounter Summary ---
Author Organization [facility] Address [address] [place] [address]. [place], [place] [address] [place], [place] [address] Care Team Providers Care Supervisor Name Role Phone Vernon Mercedes MD Primary Care Provider [phone] Stanislaw Rhodes MD Unavailable Unavailab Evaristo Ying MD Unavailable UnavailRaul Suresh MD Unavailable UnavailMyah Elena NP Unavailable Unavailable Encounter Details Date Type Department Care Team (Late st Contact Info) Description 12/24/2014 Abstract [facility] [address] [place] [address] Danny Blackwell MD [address] [place], [place] [phone] Social History Tobacco Use Types Packs/Day Years [...] Danny Blackwell M.D.; Jan 08 2015 3:49PM CARE TRANSITION MGR (Author) documented in this encounter Plan of Treatment Upcoming Encounters Date Type Department Care Team (Late st Contact Info) Description 04/25/2024 11:00 AM CARE TRANSITION MGR Appointment [facility] [address] [place] [address] Ti Bonilla MD [address] [place] [address] 05/23/2024 3:30 PM CARE TRANSITION MGR Office Visit [facility] [address] [place] [phone] Jyoti Escobar MD [address] [place] [address] documented as of this encounter Visit Diagnoses Not on filedocumented in this encounter Additional Health Concerns Infection Onset Date Last Indicated Resolved Time MRSA Comment:Negative MRSA 05/201903/11/2017 03/11/201710/0210/03/2019 10:08 AM CDT documented as of this encounter Care Teams Supervisor Relationship Specialty Start Date End Date Vernon Mercedes MD [address] [place] [address] PCP - General FAMILY PRACTICE 10/27/15 12/02/21 [place]islaw [place] [address] CARDIOVASCULAR DISEASE 10/27/15 10/24/18 Evaristo Allan MD [address] [place] [address] [place] Chopper Gun Operator CARDIOVASCULAR DISEASE 08/19/16 Raul Santana MD [address] [place] [address] [address] CLINICAL CARDIAC ELECTROPHYSIOLOGY 06/16/17 Myah Handley, VEGETABLE PACKER [address] [place] [address] CARDIOVASCULAR DISEASE 06/16/17 07/10/19 documented as of this encounter
--- OUTSIDE RECORDS SUMMARY | 2024-04-23 05:22 | XMS_ITS | Encounter Summary ---
Author Organization [facility] Address [address] [place] [address]. [place], [place] [address] [place] [address] Care Team Providers Care Bag Turner Name Role Phone Vernon Mercedes MD Primary Care Provider [phone] Stanislaw Rhodes MD Unavailable Unavailab Evaristo Ying MD Unavailable Unavailabl Raul Duran MD Unavailable Unavailabl Myah Gee NP Unavailable Unavailable Encounter Details Date Type Department Care Team (Latest Contact Info) Description 12/12/2014 Abstract [facility] Danny Blackwell MD [address] [place] [address] Social History Tobacco Use Types Packs/Day [...] st Contact Info) Description 04/25/2024 11:00 AM PROGRESSIVE DIE MAKER Appointment [facility] [place] [address] Ti Bonilla MD [address] [place] [phone] 05/23/2024 3:30 PM PROGRESSIVE DIE MAKER Office Visit [facility] [address] [place] [phone] Jyoti Escobar MD [address] [place] [address] documented as of this encounter Visit Diagnoses Not on filedocumented in this encounter Additional Health Concerns Infection Onset Date Last Indicated Resolved Time MRSA Comment:Negative MRSA 05/201903/11/2017 03/11/2017 10/03/2019 10:08 AM CDT documented as of this encounter Care Teams Bag Turner Relationship Specialty Start Date End Date Vernon Mercedes MD [address] [place] [address] PCP - General FAMILY PRACTICE 10/27/15 12/02/21 Stanislaw Rhodes MD [address] [place] [address] CARDIOVASCULAR DISEASE 10/27/15 10/24/18 Evaristo Allan MD [address] [place] [address] [place] Roller Operator CARDIOVASCULAR DISEASE 08/19/16 Raul Santana MD [address] [place] [address] CLINICAL CARDIAC ELECTROPHYSIOLOGY 06/16/17 Myah Handley NP [address] [place] [address] CARDIOVASCULAR DISEASE 06/16/17 07/10/19 documented as of this encounter
--- OUTSIDE RECORDS SUMMARY | 2024-04-23 05:22 | XMS_ITS | Encounter Summary ---
Author Organization [facility] Address [address] [place] [address]. [place], [place] [address] [place] [address] Care Team Providers Care Drum Sealer Name Role Phone Vernon Mercedes MD Primary Care Provider [phone] Stanislaw Rhodes MD Unavailable Unavailab Evaristo Ying MD Unavailable UnavailRaul Suresh MD Unavailable UnavailMyah Elena NP Unavailable Unavailable Deven Cleary MD Unavailable Unavailable Encounter Details Date Type Department Care Team (Late Contact Info) Description 12/05/[address] 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 [address] [place] [address] Ti Bonilla MD [address] [place] [phone] 05/23/2024 3:30 PM CONSTRUCTION TECHNICIAN Office Visit [facility] [address] [place] [address] Jyoti Escobar MD [address] [place] [address] documented as of this encounter Visit Diagnoses Diagnosis Atrial fibrillation ([facility]/HCC HHS/HCC) Atrial fibrillation documented in this encounter Additional Health Concerns Infection Onset Date Last Indicated Resolved Time MRSA Comment:Negative MRSA 05/201903/11/2017 03/11/2017 10/03/2019 10:08 AM CDT documented as of this encounter Care Teams Drum Sealer Relationship Specialty Start Date End Date Vernon Mercedes MD [address] [place] [address] PCP - General FAMILY PRACTICE 10/27/15 12/02/21 [place] [address] CARDIOVASCULAR DISEASE 10/27/15 10/24/18 [place] [address] [place] Washroom Operator CARDIOVASCULAR DISEASE 08/19/16 [place] [address] CLINICAL CARDIAC ELECTROPHYSIOLOGY 06/16/17 [place] [address] CARDIOVASCULAR DISEASE 06/16/17 07/10/19 [place] [address] Embedded Software Developer INTERVENTIONAL CARDIOLOGY 03/21/18 10/24/18 documented as of this encounter
--- OUTSIDE RECORDS SUMMARY | 2024-04-23 05:22 | XMS_ITS | Encounter Summary ---
Author Organization [facility] Address [address] [place] [address]. [place], [place] [address] [place] [address] Care Team Providers Care Freight Brakeman Name Role Phone Vernon Mercedes MD Primary Care Provider [phone] Stanislaw Rhodes MD Unavailable Unavailab Evaristo Ying MD Unavailable UnavailRaul Suresh MD Unavailable UnavailMyah Elena NP Unavailable Unavailable Deven Cleary MD Unavailable Unavailable Encounter Details Date Type Department Care Team (Late st Contact Info) Description 09/23/[address] [facility] [address] [place] [address] Venron Mercedes MD [address] [place] [phone] Social History Tobacco Use Types Packs/Day Years [...] st Contact Info) Description 04/25/2024 11:00 AM TECHNOLOGY AND ENGINEERING TEACHER Appointment [facility] [address] [place] [address] Ti Bonilla MD [address] [place] [phone] 05/23/2024 3:30 PM TECHNOLOGY AND ENGINEERING TEACHER [facility] [address] [place] [address] Jyoti Escobar MD [address] [place] [address] documented as of this encounter Visit Diagnoses Diagnosis Other nonspecific abnormal finding of lung field documented in this encounter Additional Health Concerns Infection Onset Date Last Indicated Resolved Time MRSA Comment:Negative MRSA 05/201903/11/2017 03/11/2017 10/03/2019 10:08 AM CDT documented as of this encounter Care Teams Freight Brakeman Relationship Specialty Start Date End Date Vernon Mercedes MD [address] [place] [address] PCP - General FAMILY PRACTICE 10/27/15 12/02/21 [place] [address] CARDIOVASCULAR DISEASE 10/27/15 10/24/18 [place] [address] [place] Copper Plater CARDIOVASCULAR DISEASE 08/19/16 [place] [address] CLINICAL CARDIAC ELECTROPHYSIOLOGY 06/16/17 Myah Handley, [place] [address] CARDIOVASCULAR DISEASE 06/16/17 07/10/19 [place] [address] Speed Belt Sander INTERVENTIONAL CARDIOLOGY 03/21/18 10/24/18 documented as of this encounter
--- OUTSIDE RECORDS SUMMARY | 2024-04-23 05:22 | XMS_ITS | Encounter Summary ---
Author Organization [facility] Address [address] [place] [address]. [place], [place] [address] [place] [address] Care Team Providers Care Ethylbenzene Converter Helper Name Role Phone Vernon Mercedes MD Primary Care Provider [phone] Stanislaw Rhodes MD Unavailable Unavailab le Encounter Details Date Type Department Care Team (Late st Contact Info) Description 05/19/2016 Orders Only [facility] [address] [place] [address] Raul Santana MD Social History [...] (Late Contact Info) Description 04/25/2024 11:00 AM RIG BUILDER HELPER [facility]ointment [facility] [place] [address] Ti Bonilla MD [address] [place] [phone] 05/23/2024 3:30 PM RIG BUILDER HELPER Office Visit [facility] [phone] Jyoti Escobar MD [address] [place] [address] documented as of this encounter Procedures Procedure Name Priority Date/Time Associated Diagnosis Comments TYPE & SCREEN NOW 05/19/2016 10:05 AM RIG BUILDER HELPER PARTIAL THROMBOPLASTIN TIME,PTT NOW 05/19/2016 10:05 AM RIG BUILDER HELPER PROTHROMBIN TIME, VENOUS NOW 05/19/2016 10:05 AM RIG BUILDER HELPER BASIC METABOLIC PANEL NOW 05/19/2016 10:05 AM RIG BUILDER HELPER CBC W/DIFF AUTOMATED NOW 05/19/2016 10:05 AM RIG BUILDER HELPER MAGNESIUM NOW 05/19/2016 10:05 AM RIG BUILDER HELPER PLASMA, FRESH FROZEN Routine 05/19/2016 8:55 AM RIG BUILDER HELPER documented in this encounter Results * MAGNESIUM (05/19/2016 10:05 AM RIG BUILDER HELPER) MAGNESIUM 1.7 1.6 - 2.6 MG/DL 05/19/2016 10:51 AM RIG BUILDER HELPER [facility] SERUM OR PLASMA SPECIMEN / Unknown 05/19/2016 10:05 AM RIG BUILDER HELPER 05/19/2016 10:17 AM RIG BUILDER HELPER us Generic Conversion Md [facility] Final R esult [facility] [place] [address], [id number] * (ABNORMAL) BASIC METABOLIC PANEL (05/19/2016 10:05 AM RIG BUILDER HELPER) SODIUM S/P/B 134(L) 135 - 147 MMOL/L 05/19/2016 10:51 AM RIG BUILDER HELPER [facility] POTASSIUM S/P/B 4.4 3.5 - 5.0 MMOL/L 05/19/2016 10:51 AM [facility] CHLORIDE S/P/B 102 98 - 107 MMOL/L 05/19/2016 10:51 AM [facility] CO2 23.5 22 - 29 MMOL/L 05/19/2016 10:51 AM [facility] GLUCOSE 243(H) 70 - 109 MG/DL 05/19/2016 10:51 AM [facility] BUN 17 8 - 26 MG/DL 05/19/2016 10:51 AM [facility] CREATININE S/P/B 0.85 0.70 - 1.30 MG/DL 05/19/2016 10:51 AM [facility] CALCIUM S/P/B 9.7 8.4 - 10.2 MG/DL 05/19/2016 10:51 AM [facility] EGFR NON-AFR. AMER. 93 >60 ML/MIN/1.7 3 M2 05/19/2016 10:51 AM [facility] EGFR AFR. AMER. 113 >60 ML/MIN/1.7 3 M2 05/19/2016 10:51 AM [facility] ANION GAP 8.5 MMOL/L 05/19/2016 10:51 AM [facility] OSMOLALITY (CALC) 278 MOSM/KG 05/19/2016 10:51 AM [facility] PLASMA SPECIMEN / Unknown 05/19/2016 10:05 AM RIG BUILDER HELPER 05/19/2016 10:17 AM [facility] us Generic Conversion Md [facility] Final R esult [facility] [place] [address], [id number] * (ABNORMAL) PARTIAL THROMBOPLASTIN TIME,PTT (05/19/2016 10:05 AM RIG BUILDER HELPER) PTT 36.5(H) 22.0 - 35.0 SEC 05/19/2016 10:33 AM [facility] PLASMA SPECIMEN / Unknown 05/19/2016 10:05 AM RIG BUILDER HELPER 05/19/2016 10:17 AM RIG BUILDER HELPER Generic Conversion Md [facility] Final R [facility] Performing Organization Address [facility]/ZIP Co de Phone Number [facility] [address] [place] [address], [id number] * (ABNORMAL) PROTIME/INR, VENOUS (05/19/2016 10:05 AM RIG BUILDER HELPER) PROTIME 14.9(H) 11.6 - 14.3 SEC 05/19/2016 10:33 AM [facility] INR 1.1 0.9 - 1.1 05/19/2016 10:33 AM [facility] 05/19/2016 10:0 5 AM RIG BUILDER HELPER 05/19/2016 10:17 AM RIG BUILDER HELPER us Generic Conversion Md [facility] Final R [facility] Performing Organization Address [facility] de Phone Number [facility] [address] [place] [address], [id number] * (ABNORMAL) CBC W/DIFF AUTOMATED (05/19/2016 10:05 AM RIG BUILDER HELPER) WBC 6.9 4.0 - 10.8 x10'3/uL 05/19/2016 10:22 AM [facility] RBC 4.55 4.50 - 6.10 x10'6/uL 05/19/2016 10:22 AM [facility] HGB 12.6(L) 13.0 - 18.0 G/DL 05/19/2016 10:22 AM [facility] HCT 37.6 37.0 - 52.0 % 05/19/2016 10:22 AM [facility] MCV 82.6 78.0 - 100.0 FL 05/19/2016 10:22 AM [facility] MCH 27.7 27.0 - 31.0 PG 05/19/2016 10:22 AM [facility] MCHC 33.5 33.0 - 36.0 G/DL 05/19/2016 10:22 AM [facility] RDW 15.0(H) 11.5 - 14.5 % 05/19/2016 10:22 AM [facility] PLT 245 150 - 350 x10'3/uL 05/19/2016 10:22 AM [facility] MPV 12.2(H) 7.4 - 10.4 FL 05/19/2016 10:22 AM [facility] ABS. NEUTROPHILS TOTAL 4.35 1.60 - 8.30 x10'3/uL 05/19/2016 10:22 AM [facility] ABS. LYMPHOCYTES 1.61 0.80 - 4.70 x10'3/uL 05/19/2016 10:22 AM [facility] ABS. MONOCYTES 0.79 0.00 - 1.50 x10'3/uL 05/19/2016 10:22 AM [facility] ABS. EOSINOPHILS 0.09 0.00 - 0.40 x10'3/uL 05/19/2016 10:22 AM [facility] ABS. BASOPHILS 0.06 0.00 - 0.20 x10'3/uL 05/19/2016 10:22 AM [facility] ABS. IMMATURE GRANULOCYTES 0.04(H) 0.00 - 0.03 x10'3/uL 05/19/2016 10:22 AM [facility] ABS. NUCLEATED RBC'S 0.00 0.0 x10'3/uL 05/19/2016 10:22 AM [facility] PLASMA SPECIMEN / Unknown 05/19/2016 10:05 AM RIG BUILDER HELPER 05/19/2016 10:17 AM RIG BUILDER HELPER us Stephani Aiken Md, MD LABORATORY Final R esult Performing Organization Address [facility] Co de Phone Number [facility] [address] [place] [address], [place] [phone] * TYPE & SCREEN (05/19/2016 10:05 AM RIG BUILDER HELPER) UNITS ORDERED 4 [facility] ABO/RH B POSITIVE [facility] SAMPLE EXPIRATION 05/22/2016 [facility] ANTIBODY SCREEN NEGATIVE [facility] 05/19/2016 10:0 5 AM RIG BUILDER HELPER 05/19/2016 10:16 AM RIG BUILDER HELPER us Raul Santana MD BLOOD BANK TEST ORDERABLES Edited Result - Final Performing Organization Address [facility] de Phone Number [facility] [address] [place] [address], [place] [phone] [id number] * PLASMA, FRESH FROZEN (05/19/2016 8:55 AM RIG BUILDER HELPER) UNITS ORDERED 4 [facility] 05/19/2016 8:55 AM RIG BUILDER HELPER 05/19/2016 11:00 AM RIG BUILDER HELPER us Raul Santana MD LABORATORY Final Resul t Performing Organization Address [facility] de Phone Number [facility] [address] [place] [address], [place] [phone] documented in this encounter Visit Diagnoses Not on filedocumented in this encounter Care Teams Ethylbenzene Converter Helper Relationship Specialty [place] [address] [place], [place] [address] [address] PCP - General FAMILY PRACTICE 10/27/15 12/02/21 Stanislaw Rhodes MD [address] [facility] [place] [address] CARDIOVASCULAR DISEASE 10/27/15 10/24/18 documented as of this encounter
--- OUTSIDE RECORDS SUMMARY | 2024-04-23 05:22 | XMS_ITS | Encounter Summary ---
Author Organization [facility] Address [address] [place] [address]. [place] [address] [place] [address] Care Team Providers Care Coordinator Of Genetic Services Name Role Phone Unavailable Primary Care Provider Unavailabl e Encounter Details Date Type Department Care Team (Late Contact Info) Description 09/19/2015 Abstract [facility] [address] [place] [address] Stephani Luz MD Social History [...] (Late Contact Info) Description 04/25/2024 11:00 AM GUI DEVELOPER Appointment [facility] [address] [place] [address] Ti Bonilla MD [address] [place] [phone] 05/23/2024 3:30 PM GUI DEVELOPER Office Visit [facility] [address] [place] [phone] Jyoti Escobar MD [address] [place] [address] documented as of this encounter Visit Diagnoses Not on filedocumented in this encounter
--- OUTSIDE RECORDS SUMMARY | 2024-04-23 05:22 | XMS_ITS | Encounter Summary ---
Author Organization [facility] Address [address] [place] [address]. [place] [address] [place] [address] Care Team Providers Care Farmworker Pullet Farm Name Role Phone Vernon Mercedes MD Primary Care Provider [phone] Stanislaw hRodes MD Unavailable Unavailab le Reason for Visit * Reason Onset Date Comments Medication Information 04/28/2016 Nurse karin led to let us know about Pt medications. 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 CONTROL PILOT documented in this encounter Plan of Treatment Upcoming Encounters Date Type Department Care Team (Late st Contact Info) Description 04/25/2024 11:00 AM PEST CONTROL PILOT Appointment [facility] [address] [place] [address] Ti Bonilla MD [address] [place] [phone] 05/23/2024 3:30 PM PEST CONTROL PILOT Office Visit [facility] [address] [place] [address] Jyoti Escobar MD [address] [place] [phone] documented as of this encounter Visit Diagnoses Not on filedocumented in this encounter Care Teams Farmworker Pullet Farm Relationship Specialty Start Date End Date Vernon Mercedes MD [address] [place] [address] PCP - General FAMILY PRACTICE 10/27/15 12/02/21 Stanislaw Rhodes MD [address] [place] [address] CARDIOVASCULAR DISEASE 10/27/15 10/24/18 documented as of this encounter
--- OUTSIDE RECORDS SUMMARY | 2024-04-23 05:22 | XMS_ITS | Encounter Summary ---
Author Organization [facility] Address [address] [place] [address]. [place], [place] [address] [place] [address] Care Team Providers Care It Application Administrator Name Role Phone Vernon Mercedes MD Primary Care Provider [phone] Stanislaw Rhodes MD Unavailable Unavailab le Encounter Details Date Type Department Care Team (Late Contact Info) Description 01/19/2016 Scan [facility] [address] [place] [phone] Scanned, Documents Social History Tobacco Use Types [...] (Late Contact Info) Description 04/25/2024 11:[address] [facility] [address] [place] [address] Ti Bonilla MD [address] [place] [phone] 05/23/2024 3:30 PM AURIST Office Visit [facility] [place] [address] [phone] Jyoti Escobar MD [address] [place] [address] documented as of this encounter Visit Diagnoses Not on filedocumented in this encounter Care Teams It Application Administrator Relationship Specialty Start Date End Date Vernon Mercedes MD [address] [place] [address] PCP - General FAMILY PRACTICE 10/27/15 12/02/21 Stanislaw Rhodes MD [address] [place] [address] CARDIOVASCULAR DISEASE 10/27/15 10/24/18 documented as of this encounter
--- OUTSIDE RECORDS SUMMARY | 2024-04-23 05:22 | XMS_ITS | Encounter Summary ---
Author Organization [facility] Address [address] [place] [address]. [place], [place] [address] [place] [address] Care Team Providers Care Rug Setter Velvet Name Role Phone Vernon Mercedes MD Primary Care Provider [phone] Stanislaw Rhodes MD Unavailable Unavailab Evaristo Ying MD Unavailable UnavailRaul Suresh MD Unavailable UnavailMyah Elena NP Unavailable Unavailable Deven Cleary MD Unavailable Unavailable Encounter Details Date Type Department Care Team (Late Contact Info) Description 02/17/2016 Abstract [facility] [address] [place] [address] Vernon Mercedes MD [address] [place] [address] Social History Tobacco Use Types [...] (Late Contact Info) Description 04/25/2024 11:00 AM INTERACTIVE DESIGNER Appointment [facility] [address] [place] [address] Ti Bonilla MD [address] [place] [phone] 05/23/2024 3:30 PM INTERACTIVE DESIGNER Office Visit [facility] [address] [place] [address] Jyoti Escobar MD [address] [place] [address] documented as of this encounter Visit Diagnoses Diagnosis Atrial fibrillation ([facility]/HCC HHS/HCC) Atrial fibrillation documented in this encounter Additional Health Concerns Infection Onset Date Last Indicated Resolved Time MRSA Comment:Negative MRSA 05/201903/11/2017 03/11/2017 10/03/2019 10:08 AM CDT documented as of this encounter Care Teams Rug Setter Velvet Relationship Specialty Start Date End Date Vernon Mercedes MD [address] [place] [address] PCP - General FAMILY PRACTICE 10/27/15 12/02/21 [place] [address] CARDIOVASCULAR DISEASE 10/27/15 10/24/18 [place] [address] [place] [facility] Specialist CARDIOVASCULAR DISEASE 08/19/16 [place] [address] CLINICAL CARDIAC ELECTROPHYSIOLOGY 06/16/17 [place] [address] CARDIOVASCULAR DISEASE 06/16/17 07/10/19 [place] [address] [address] [place] INTERVENTIONAL CARDIOLOGY 03/21/18 10/24/18 documented as of this encounter
--- OUTSIDE RECORDS SUMMARY | 2024-04-23 05:22 | XMS_ITS | Encounter Summary ---
Author Organization [facility] Address [address] [place] [address]. [place], [place] [address] [place] [address] Care Team Providers Care Development Executive Name Role Phone Vernon Mercedes MD Primary Care Provider [phone] Stanislaw Rhodes MD Unavailable Unavailab Evaristo Ying MD Unavailable UnavailRaul Suresh MD Unavailable UnavailMyah Elena NP Unavailable Unavailable Deven Cleary MD Unavailable Unavailable Encounter Details Date Type Department Care Team (Late Contact Info) Description 11/07/[address] [facility] [address] [place] [address] Vernon Mercedes MD [address] [place] [address] Social History Tobacco Use Types Packs/Day Years [...] (Late Contact Info) Description 04/25/2024 11:00 AM MARINE ARCHITECT Appoint[address] [facility] [address] [place] [address] Ti Bonilla MD [address] [place] [address] 05/23/2024 3:30 PM MARINE ARCHITECT [facility] [address] [place] [address] Jyoti Escobar MD [address] [place] [address] documented as of this encounter Visit Diagnoses Diagnosis Atrial fibrillation ([facility]/HCC HHS/HCC) Atrial fibrillation documented in this encounter Additional Health Concerns Infection Onset Date Last Indicated Resolved Time MRSA Comment:Negative MRSA 05/201903/11/2017 03/11/2017 10/03/2019 10:08 AM CDT documented as of this encounter Care Teams Development Executive Relationship Specialty Start Date End Date Vernon Mercedes MD [address] [place] [address] PCP - General FAMILY PRACTICE 10/27/15 12/02/21 [place] [address] CARDIOVASCULAR DISEASE 10/27/15 10/24/18 [place] [address] [facility] Geodetic Advisor CARDIOVASCULAR DISEASE 08/19/16 [place] [address] CLINICAL CARDIAC ELECTROPHYSIOLOGY 06/16/17 [place] [address] CARDIOVASCULAR DISEASE 06/16/17 07/10/19 [place] [address] Learning Support Services Director INTERVENTIONAL CARDIOLOGY 03/21/18 10/24/18 documented as of this encounter
--- OUTSIDE RECORDS SUMMARY | 2024-04-23 05:22 | XMS_ITS | Encounter Summary ---
Author Organization [facility] Address [address] [place] [address]. [place], [place] [address] [place] [address] Care Team Providers Care Shuttle Buggy Operator Name Role Phone Vernon Mercedes MD Primary Care Provider [phone] Stanislaw Rhodes MD Unavailable Unavailab Evaristo Ying MD Unavailable Unavailabl e Encounter Details Date Type Department Care Team (Late Contact Info) Description 05/19/2016 Orders [place] [address] , Generic Conversion, Social History Tobacco Use [...] (Late Contact Info) Description 04/25/2024 11:00 AM TRIPLE VALVE TESTER Appointment [facility] [place] [address] Ti Bonilla MD [address] [place] [phone] 05/23/2024 3:30 PM TRIPLE VALVE TESTER Office Visit [facility] [address] [place] [address] Jyoti Escobar MD [address] [place], [place] [address] documented as of this encounter Procedures Procedure Name Priority Date/Time Associated Diagnosis Comments ACT (HMT OR LHMT) Routine 05/19/2016 1:5 0 PM TRIPLE VALVE TESTER documented in this encounter Results * (ABNORMAL) ACT (HMT OR LHMT) (05/19/2016 1:50 PM TRIPLE VALVE TESTER) ACTIVATED CLOTTING TIME (ACT HMT OR LMT) 337(H) 74 - 137 SEC 05/19/2016 1:55 PM TRIPLE VALVE TESTER [facility] ORDERS INTERFACE WHOLE BLOOD SPECIMEN / Unknown 05/19/2016 1:50 PM TRIPLE VALVE TESTER 05/19/2016 1:55 PM TRIPLE VALVE TESTER us Generic Conversion Md [facility] BLOOD ORDERABLES Fi nal Result [facility] ORDERS INTERFACE US documented in this encounter Visit Diagnoses Not on filedocumented in this encounter Additional Health Concerns Infection Onset Date Last Indicated Resolved Time MRSA Comment:Negative MRSA 05/201903/11/2017 03/11/2017 10/03/2019 10:08 AM CDT documented as of this encounter Care Teams Shuttle Buggy Operator Relationship Specialty Start Date End Date Vernon Mercedes MD [address] [place] [address] PCP - General FAMILY PRACTICE 10/27/15 12/02/21 [place] [address] CARDIOVASCULAR DISEASE 10/27/15 7 [place] [address] [employer] Manager CARDIOVASCULAR DISEASE 08/19/16 documented as of this encounter
--- OUTSIDE RECORDS SUMMARY | 2024-04-23 05:22 | XMS_ITS | Encounter Summary ---
Author Organization [facility] Address [address] [place] [address]. [place], [place] [address] [place] [address] Care Team Providers Care Needle Felt Making Machine Operator Name Role Phone Vernon Mercedes MD Primary Care Provider [phone] Stanislaw Rohdes MD Unavailable Unavailab le Encounter Details Date Type Department Care Team (Late st Contact Info) Description 05/19/2016 PASSENGER FLAGMAN ONLY [facility] [address] [place] [phone] Eve Carrera MD Social History Tobacco Use [...] 8:32 AM CST DATE: 05/21/16 @ 0602 [facility] LIVE PAGE 1 USER: [email or web address] Medication Reconciliation PHYNRXRI DISCHARGE MEDICATION INSTRUCTIONS MCKEONELZA Location: [facility] BMI: 41.6 MR#: [id number] Service Date: 05/19/16 : 1960 M Weight: 127.565161 kg Height: 175.00 cm Allergies: doxycycline Adverse: [...] PAGE ACCESS ID: DATE: 05/21/16 @ 0602 [facility] PAGE 2 USER: [email or web address] Medication Reconciliation PHYNRXRI [facility]CHARGE [facility] BMI: 41.6 MR#: [id number] Service Date: 05/19/16 : 1960 M Weight: 127.410228 kg Height: 175.00 cm Allergies: doxycycline Adverse: [...] PAGE ACCESS ID: DATE: 05/21/16 @ 0602 [facility] PAGE 3 USER: [email or web address] Medication Reconciliation PHYNRXRI DISCHARGE MEDICATION [facility] ELZA MCKEON Location: [facility] BMI: 41.6 MR#: [id number] Service Date: 05/19/16 : 1960 M Weight: 127.386622 kg Height: 175.00 cm Allergies: doxycycline Adverse: Attending Dr: EVE CARRERA MD Medications, Herbals, and Supplements Last Taken Medication Dose Route Schedule Instructions/Indications HOME MED RANITIDINE TAB 150 MG 05/19/16 8:00am (ACID ASSEMBLER INSULATOR) 150 MG ORAL TWICE A DAY stomach [...] PAGE ACCESS ID: DATE: 05/21/16 @ 0602 [facility] PAGE 4 USER: [email or web address] Medication Reconciliation PHYNRXRI DISCHARGE MEDICATION INSTRUCTIONS ELZA MCKEON Location: [facility] BMI: 41.6 MR#: [id number] Service Date: 05/19/16 : 1960 M Weight: 127.608493 kg Height: 175.00 cm Allergies: doxycycline Adverse: [...] the Past 72 Hours END OF REPORT GER AND SETTER documented in this encounter Plan of Treatment Upcoming Encounters Date Type Department Care Team (Late st Contact Info) Description 04/25/2024 11:00 AM WRINGER AND SETTER Appointment [facility] [address] [place] [address] Ti Bonilla MD [address] [place] [phone] 05/23/2024 3:30 PM WRINGER AND SETTER Office Visit [facility] [address] [place] [phone] Jyoti Escobar MD [address] [place] [phone] documented as of this encounter Visit Diagnoses Not on filedocumented in this encounter Care Teams Needle Felt Making Machine Operator Relationship Specialty Start Date End Date Vernon Mercedes MD [address] [place] [phone] PCP - General FAMILY PRACTICE 10/27/15 12/02/21 Stanislaw Rhodes MD [address] [place] [address] CARDIOVASCULAR DISEASE 10/27/15 10/24/18 documented as of this encounter
--- OUTSIDE RECORDS SUMMARY | 2024-04-23 05:22 | XMS_ITS | Encounter Summary ---
Author Organization [facility] Address [address] [place] [address]. 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 [place] [address] Ti Bonilla MD [address] [place] [phone] 05/23/2024 3:30 PM ELECTRONIC SECURITY TECHNICIAN Office Visit [facility] [address] [place] [address] Jyoti Escobar MD [address] [place] [address] documented as of this encounter Visit Diagnoses Not on filedocumented in this encounter Care Teams Numberer And Wirer Relationship Specialty Start Date End Date Vernon Mercedes MD [address] [place] [address] PCP - General FAMILY PRACTICE 10/27/15 12/02/21 Stanislaw Rhodes MD [address] [place] [address] CARDIOVASCULAR DISEASE 10/27/15 10/24/18 Evaristo Allan MD [address] [place] [address] [employer] Superintendent CARDIOVASCULAR DISEASE 08/19/16 documented as of this encounter
--- OUTSIDE RECORDS SUMMARY | 2024-04-23 05:22 | XMS_ITS | Encounter Summary ---
Author Organization [facility] Address [address] [place] [address]. [place], [place] [address] [place] [address] Care Team Providers Care Sql Ssrs Developer Name Role Phone Vernon Mercedes MD Primary Care Provider [phone] Stanislaw Rhodes MD Unavailable Unavailab Evaristo Ying MD Unavailable UnavailRaul Suresh MD Unavailable UnavailMyah Elena NP Unavailable Unavailable Deven Cleary MD Unavailable Unavailable Encounter Details Date Type Department Care Team (Late st Contact Info) Description 11/04/[address] 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 [address] [place] [address] Ti Bonilla MD [address] [place] [phone] 05/23/2024 3:30 PM SENIOR TECHNICAL ANALYST [facility] [address] [place] [address] Jyoti Escobar MD [address] [place] [address] documented as of this encounter Visit Diagnoses Diagnosis Chest pain Chest pain, unspecified documented in this encounter Additional Health Concerns Infection Onset Date Last Indicated Resolved Time MRSA Comment:Negative MRSA 05/201903/11/2017 03/11/2017 10/03/2019 10:08 AM CDT documented as of this encounter Care Teams Sql Ssrs Developer Relationship Specialty Start Date End Date Vernon Mercedes MD [address] [place] [address] PCP - General FAMILY PRACTICE 10/27/15 12/02/21 [place] [address] CARDIOVASCULAR DISEASE 10/27/15 10/24/18 [place] [address] [place] Hands And Dial Inspector CARDIOVASCULAR DISEASE 08/19/16 [place] [address] CLINICAL CARDIAC ELECTROPHYSIOLOGY 06/16/17 Myah Handley [place] [address] CARDIOVASCULAR DISEASE 06/16/17 07/10/19 [place] [address] International Exchange Coordinator INTERVENTIONAL CARDIOLOGY 03/21/18 10/24/18 documented as of this encounter
--- OUTSIDE RECORDS SUMMARY | 2024-04-23 05:22 | XMS_ITS | Encounter Summary ---
Author Organization [facility] Address [address] [place] [address]. [place], [place] [address] [place] [address] Care Team Providers Care Founder Chairman And Chief Creative Officer Name Role Phone Unavailable Primary Care Provider Unavailabl e Encounter Details Date Type Department Care Team (Late Contact Info) Description 09/19/2015 Scan [facility] [address] [place] [address] Stephani Luz MD Social History [...] (Late Contact Info) Description 04/25/2024 11:00 AM PARAPROFESSIONAL EDUCATION ASSISTANT Appointment [facility] [address] [place] [address] Ti Bonilla MD [address] [place] [phone] 05/23/2024 3:30 PM PARAPROFESSIONAL EDUCATION ASSISTANT Office Visit [facility] [address] [place] [phone] Jyoti Escobar MD [address] [place] [address] documented as of this encounter Visit Diagnoses Not on filedocumented in this encounter
--- OUTSIDE RECORDS SUMMARY | 2024-04-23 05:22 | XMS_ITS | Encounter Summary ---
Author Organization [facility] Address [address] [place] [address]. [place], [place] [address] [place] [address] Care Team Providers Care Shingle Inspector Name Role Phone Vernon Mercedes MD Primary Care Provider [phone] Stanislaw Rhodes MD Unavailable Unavailab le Encounter Details Date Type Department Care Team (Late st Contact Info) Description 10/30/2015 Orders Only [facility] [address] [place] [address] Ranjith Marie, SHRAVAN Social History Tobacco Use [...] Contact Info) Description 04/25/2024 11:00 AM TECHNOLOGY SALES REPRESENTATIVE [facility]ointment [facility] [place] [place] [address] Ti Bonilla MD [address] [place] [address] [phone] 05/23/2024 3:30 PM TECHNOLOGY SALES REPRESENTATIVE Office Visit [facility] [address] Jyoti Escobar MD [address] [place] [address] documented as of this encounter Visit Diagnoses Not on filedocumented in this encounter Care Teams Shingle Inspector Relationship Specialty Start Date End Date Vernon Mercedes MD [address] [place] [phone] PCP - General FAMILY PRACTICE 10/27/15 12/02/21 Stanislaw Rhodes MD [address] [place] [address] CARDIOVASCULAR DISEASE 10/27/15 10/24/18 documented as of this encounter
--- OUTSIDE RECORDS SUMMARY | 2024-04-23 05:22 | XMS_ITS | Encounter Summary ---
Author Organization [facility] Address [address] [place] [address]. 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 [place] [address] Ti Bonilla MD [address] [place] [phone] 05/23/2024 3:30 PM COMMUNICATION ENGINEER Office Visit [facility] [address] [place] [address] Jyoti Escobar MD [address] [place] [address] documented as of this encounter Visit Diagnoses Not on filedocumented in this encounter Care Teams Polymerization Oven Operator Relationship Specialty Start Date End Date Vernon Mercedes MD [address] [place] [phone] PCP - General FAMILY PRACTICE 10/27/15 12/02/21 Stanislaw Rhodes MD [address] [place] [address] CARDIOVASCULAR DISEASE 10/27/15 10/24/18 documented as of this encounter
--- OUTSIDE RECORDS SUMMARY | 2024-04-23 05:22 | XMS_ITS | Encounter Summary ---
Author Organization [facility] Address [address] [place] [address]. 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 [place] [address] Ti Bonilla MD [address] [place] [phone] 05/23/2024 3:30 PM DRIER TENDER Office Visit [facility] [address] Jyoti Escobar MD [address] [place], [place] [phone] documented as of this encounter Procedures Procedure Name Priority Date/Time Associated Diagnosis Comments CBC W/DIFF AUTOMATED TIMED 05/20/2016 5:14 AM DRIER TENDER documented in this encounter Results * (ABNORMAL) CBC W/DIFF AUTOMATED (05/20/2016 5:14 AM DRIER TENDER) WBC 9.3 4.0 - 10.8 x10'3/uL 05/20/2016 5:32 AM [facility] RBC 4.30(L) 4.50 - 6.10 x10'6/uL 05/20/2016 5:32 AM [facility] HGB 11.7(L) 13.0 - 18.0 G/DL 05/20/2016 5:32 AM [facility] HCT 36.8(L) 37.0 - 52.0 % 05/20/2016 5:32 AM [facility] MCV 85.6 78.0 - 100.0 FL 05/20/2016 5:32 AM [facility] MCH 27.2 27.0 - 31.0 PG 05/20/2016 5:32 AM [facility] MCHC 31.8(L) 33.0 - 36.0 G/DL 05/20/2016 5:32 AM [facility] RDW 15.4(H) 11.5 - 14.5 % 05/20/2016 5:32 AM [facility] PLT 234 150 - 350 x10'3/uL 05/20/2016 5:32 AM [facility] MPV 11.5(H) 7.4 - 10.4 FL 05/20/2016 5:32 AM [facility] ABS. NEUTROPHILS TOTAL 6.32 1.60 - 8.30 x10'3/uL 05/20/2016 5:32 AM DRIER TENDER [facility] ABS. LYMPHOCYTES 1.76 0.80 - 4.70 x10'3/uL 05/20/2016 5:32 AM DRIER TENDER [facility] ABS. MONOCYTES 1.02 0.00 - 1.50 x10'3/uL 05/20/2016 5:32 AM DRIER TENDER [facility] ABS. EOSINOPHILS 0.12 0.00 - 0.40 x10'3/uL 05/20/2016 5:32 AM DRIER TENDER [facility] ABS. BASOPHILS 0.06 0.00 - 0.20 x10'3/uL 05/20/2016 5:32 AM DRIER TENDER [facility] ABS. IMMATURE GRANULOCYTES 0.04(H) 0.00 - 0.03 x10'3/uL 05/20/2016 5:32 AM DRIER TENDER [facility] ABS. NUCLEATED RBC'S 0.00 0.0 x10'3/uL 05/20/2016 5:32 AM DRIER TENDER [facility] PLASMA SPECIMEN / Unknown 05/20/2016 5:14 AM DRIER TENDER 05/20/2016 5:26 AM DRIER TENDER us Generic Conversion Md [facility] Final R esult [facility] [place] [address], [id number] documented in this encounter Visit Diagnoses Not on filedocumented in this encounter Additional Health Concerns Infection Onset Date Last Indicated Resolved Time MRSA Comment:Negative MRSA 05/201903/11/2017 03/11/2017 10/03/2019 10:08 AM CDT documented as of this encounter Care Teams Zipper Sewing Machine Operator Relationship Specialty Start Date End Date Vernon Mercedes MD [address] [facility] [place] [phone] PCP - General FAMILY PRACTICE 10/27/15 12/02/21 Stanislaw Rhodes MD [address] [place] [address] CARDIOVASCULAR DISEASE 10/27/15 10/24/18 Evaristo Allan MD [address] [place] [address] [place] Diamond Sander CARDIOVASCULAR DISEASE 08/19/16 documented as of this encounter
--- OUTSIDE RECORDS SUMMARY | 2024-04-23 05:22 | XMS_ITS | Encounter Summary ---
Author Organization [facility] Address [address] [place] [address]. [place] [address] [place] [address] Care Team Providers Care Capsule Inspector Name Role Phone Vernon Mercedes MD Primary Care Provider Stanislaw Rhodes MD Unavailable Unavailab Evaristo Ying MD Unavailable UnavailRaul Suresh MD Unavailable UnavailMyah Elena NP Unavailable Unavailable Deven Cleary MD Unavailable Unavailable Encounter Details Date Type Department Care Team (Late Contact Info) Description 04/16/2016 Abstract [facility] [address] [place] [address] Mavis Schaeffer MD [address] [place] [address] Social History Tobacco Use Types Packs/Day Years [...] Contact Info) Description 04/25/2024 11:00 AM WIRE ROPE SLING MAKER Appointment [facility] [address] [place] [address] Ti Bonilla MD [address] [place] [phone] 05/23/2024 3:30 PM WIRE ROPE SLING MAKER [facility] [address] [place] [address] Jyoti Escobar MD [address] [place] [address] documented as of this encounter Visit Diagnoses Diagnosis Atrial fibrillation (CMS/HCC HHS/HCC) Atrial fibrillation documented in this encounter Additional Health Concerns Infection Onset Date Last Indicated Resolved Time MRSA Comment:Negative MRSA 05/201903/11/2017 03/11/2017 10/03/2019 10:08 AM CDT documented as of this encounter Care Teams Capsule Inspector Relationship Specialty Start Date End Date Vernon Mercedes MD [address] [place] [address] PCP - General FAMILY PRACTICE 10/27/15 12/02/21 [place] [address] CARDIOVASCULAR DISEASE 10/27/15 10/24/18 [place] [address] [place] Tub Wash Operator CARDIOVASCULAR DISEASE 08/19/16 [place] [address] CLINICAL CARDIAC ELECTROPHYSIOLOGY 06/16/17 [place] [address] CARDIOVASCULAR DISEASE 06/16/17 07/10/19 [place] [address] Wire Fence Erector INTERVENTIONAL CARDIOLOGY 03/21/18 10/24/18 documented as of this encounter
--- OUTSIDE RECORDS SUMMARY | 2024-04-23 05:22 | XMS_ITS | Encounter Summary ---
Author Organization [facility] Address [address] [place] [address]. [place], [place] [address] [place], [place] [phone] Care Team Providers Care Stemhole Borer Name Role Phone Vernon Mercedes MD Primary Care Provider [phone] Stanislaw Rhodes MD Unavailable Unavailab Elza Ying MD Unavailable UnavailRaul Suresh MD Unavailable Unavailabl Myah Gee NP Unavailable Unavailable Encounter Details Date Type Department Care Team (Latest Contact Info) Description 12/10/2014 Abstract [facility] , Stephani Aiken MD Social [...] Steiner MD - 12/10/2014 7:54 AM CDT [address] [address] Patient: ELZA MCKEON [facility] Rec#: [id number] Birthdate: 1960 Admit/Svce Date: 12/06/2014 Disch Date: 12/10/2014 Attending Md: DANNY STEINER MD (TRACY) DISCHARGE SUMMARY PATIENT: Elza Mckeon : 1960 MR #: [id number] Chart Document Diagnosis Left knee end-stage osteoarthritis. [...] medications as well as MS Contin and Champion for pain relief. He is going to take a full-size aspirin twice a day for DVT prophylaxis and will arrange outpatient physical therapy. CP/ams A A #[id number] cc: MD Danny Woody MD CP/ams E-Signed By A Danny Steiner MD 12/17/2014 01:55 P A #[id number] cc: MD Danny Woody MD documented in this encounter Plan of Treatment Upcoming Encounters Date Type Department Care Team (Late st Contact Info) Description 04/25/2024 11:00 AM VICE PRESIDENT FOR PHILANTHROPY Appointment [facility] [address] [place] [address] Ti Bonilla MD [address] [place] [phone] 05/23/2024 3:30 PM VICE PRESIDENT FOR PHILANTHROPY Office Visit [facility] [address] [place] [address] Jyoti Escobar MD [address] [place] [phone] documented as of this encounter Visit Diagnoses Not on filedocumented in this encounter Additional Health Concerns Infection Onset Date Last Indicated Resolved Time MRSA Comment:Negative MRSA 05/201903/11/2017 03/11/2017 10/03/2019 10:08 AM CDT documented as of this encounter Care Teams Stemhole Borer Relationship Specialty Start Date End [place] [address] PCP - General FAMILY PRACTICE 10/27/15 12/02/21 [place] [address] CARDIOVASCULAR DISEASE 10/27/15 10/24/18 [place] [place] [address] [place] Tuckpointer Cleaner Caulker CARDIOVASCULAR DISEASE 08/19/16 [place] [address] CLINICAL CARDIAC ELECTROPHYSIOLOGY 06/16/17 [place] [address] CARDIOVASCULAR DISEASE 06/16/17 07/10/19 documented as of this encounter
--- OUTSIDE RECORDS SUMMARY | 2024-04-23 05:22 | XMS_ITS | Encounter Summary ---
Author Organization [facility] Address [address] [place] [address]. 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 [address] [place] [address] Ti Bonilla MD [address] [place] [phone] 05/23/2024 3:30 PM PICKLE WATER PUMP OPERATOR Office Visit [facility] [address] [place] [address] Jyoti Escobar MD [address] [place] [address] documented as of this encounter Visit Diagnoses Not on filedocumented in this encounter Care Teams Agronomy Teacher Relationship Specialty Start Date End Date Vernon Mercedes MD [address] [place] [address] PCP - General FAMILY PRACTICE 10/27/15 12/02/21 Stanislaw Rhodes MD [address] [place] [address] CARDIOVASCULAR DISEASE 10/27/15 10/24/18 documented as of this encounter
--- OUTSIDE RECORDS SUMMARY | 2024-04-23 05:22 | XMS_ITS | Encounter Summary ---
Author Organization [facility] Address [address] [place] [address]. [place], [place] [address] [place] [address] Care Team Providers Care Sanding Machine Tender Name Role Phone Vernon Mercedes MD Primary Care Provider [phone] Stanislaw Rhodes MD Unavailable Unavailab Evaristo Ying MD Unavailable UnavailRaul Suresh MD Unavailable UnavailMyah Elena NP Unavailable Unavailable Encounter Details Date Type Department Care Team (Late st Contact Info) Description 09/19/2014 Abstract [place] [id number] [place] [address] Danny Blackwell MD [address] [place], [place] [phone] Social History Tobacco Use Types Packs/Day Years [...] HE will work at home with exercises. Evaristo Zelaya is status post medial meniscectomy [...] Danny Blackwell M.D.; Sep 23 2014 9:22AM COLOR TELEVISION CONSOLE MONITOR (Author) documented in this encounter Plan of Treatment Upcoming Encounters Date Type Department Care Team (Late st Contact Info) Description 04/25/2024 11:00 AM COLOR TELEVISION CONSOLE MONITOR Appointment [facility] [address] [place] [address] [place] [address] Ti Bonilla MD [address] [place] [phone] 05/23/2024 3:30 PM COLOR TELEVISION CONSOLE MONITOR Office Visit [facility] [address] [place] [address] Jyoti Escobar MD [address] [place] [phone] documented as of this encounter Visit Diagnoses Not on filedocumented in this encounter Additional Health Concerns Infection Onset Date Last Indicated Resolved Time MRSA Comment:Negative MRSA 05/201903/11/2017 03/11/2017 10/03/2019 10:08 AM CDT documented as of this encounter Care Teams Sanding Machine Tender Relationship Specialty Start Date End Date Mercedes, Vernon A, MD [address] [place] [address] PCP - General FAMILY PRACTICE 10/27/15 12/02/21 Stanislaw Rhodes MD [address] [place] [address] CARDIOVASCULAR DISEASE 10/27/15 10/24/18 Evaristo Allan MD [address] [place] [address] [place] Needleworker CARDIOVASCULAR DISEASE 08/19/16 Raul Santana MD [address] [place] [address] CLINICAL CARDIAC ELECTROPHYSIOLOGY 06/16/17 Myah Handley INCREMENT MANAGER [address] [place] [address] [place] [address] CARDIOVASCULAR DISEASE 06/16/17 07/10/19 documented as of this encounter
--- OUTSIDE RECORDS SUMMARY | 2024-04-23 05:22 | XMS_ITS | Encounter Summary ---
Author Organization [facility] Address [address] [place] [address]. [place], [place] [address] [place] [address] Care Team Providers Care Wastewater Superintendent Name Role Phone Vernon Mercedes MD Primary Care Provider [phone] Stanislaw Rhodes MD Unavailable Unavailab Evaristo Ying MD Unavailable UnavailRaul Suresh MD Unavailable UnavailMyah Elena NP Unavailable Unavailable Deven Cleary MD Unavailable Unavailable Encounter Details Date Type Department Care Team (Late Contact Info) Description 12/03/[address] 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 [address] [place] [address] Ti Bonilla MD [address] [place] [address] 05/23/2024 3:30 PM REFRIGERATOR GLAZIER Office Visit [facility] [address] [place] [address] Jyoti Escobar MD [address] [place] [address] documented as of this encounter Visit Diagnoses Diagnosis Atrial fibrillation ([facility]/HCC HHS/HCC) Atrial fibrillation documented in this encounter Additional Health Concerns Infection Onset Date Last Indicated Resolved Time MRSA Comment:Negative MRSA 05/201903/11/2017 03/11/2017 10/03/2019 10:08 AM CDT documented as of this encounter Care Teams Wastewater Superintendent Relationship Specialty Start Date End Date Vernon Mercedes MD [address] [place] [address] PCP - General FAMILY PRACTICE 10/27/15 12/02/21 [place] [address] CARDIOVASCULAR DISEASE 10/27/15 10/24/18 [place] [address] [place] Insulator Tester CARDIOVASCULAR DISEASE 08/19/16 [place] [address] CLINICAL CARDIAC ELECTROPHYSIOLOGY 06/16/17 [place] [address] CARDIOVASCULAR DISEASE 06/16/17 07/10/19 [place] [address] Clerical Adjudicator INTERVENTIONAL CARDIOLOGY 03/21/18 10/24/18 documented as of this encounter
--- OUTSIDE RECORDS SUMMARY | 2024-04-23 05:22 | XMS_ITS | Encounter Summary ---
Author Organization [facility] Address [address] [place] [address]. [place], [place] [address] [place] [address] Care Team Providers Care Hvac Technician Name Role Phone Vernon Mercedes MD Primary Care Provider [phone] Stanislaw Rhodes MD Unavailable Unavailab Evaristo Ying MD Unavailable UnavailRaul Suresh MD Unavailable UnavailMyah Elena NP Unavailable Unavailable Deven Cleary MD Unavailable Unavailable Encounter Details Date Type Department Care Team (Late Contact Info) Description 01/21/2015 Abstract [facility] [address] [place] [address] Danny Blackwell MD [address] [place], [place] [phone] Social History Tobacco Use Types Packs/Day Years [...] (Late Contact Info) Description 04/25/2024 11:00 AM CORRESPONDENCE SCHOOL INSTRUCTOR Appointment [facility] [address] [place] [address] Ti Bonilla MD [address] [place] [address] 05/23/2024 3:30 PM CORRESPONDENCE SCHOOL INSTRUCTOR [facility] [address] [place] [address] Jyoti Escobar MD [address] [place] [address] documented as of this encounter Visit Diagnoses Diagnosis Aftercare following joint replacement surgery Aftercare following joint replacement documented in this encounter Additional Health Concerns Infection Onset Date Last Indicated Resolved Time MRSA Comment:Negative MRSA 05/201903/11/2017 03/11/2017 10/03/2019 10:08 AM CDT documented as of this encounter Care Teams Hvac Technician Relationship Specialty Start Date End Date Vernon Mercedes MD [address] [place] [address] PCP - General FAMILY PRACTICE 10/27/15 12/02/21 [place] [address] CARDIOVASCULAR DISEASE 10/27/15 10/24/18 [place] [address] [place] Portable Machine Sander CARDIOVASCULAR DISEASE 08/19/16 [place] [address] CLINICAL CARDIAC ELECTROPHYSIOLOGY 06/16/17 Myah Handley MULTIFOCAL [place] [address] CARDIOVASCULAR DISEASE 06/16/17 07/10/19 [place] [address] Web Sizer INTERVENTIONAL CARDIOLOGY 03/21/18 10/24/18 documented as of this encounter
--- OUTSIDE RECORDS SUMMARY | 2024-04-23 05:22 | XMS_ITS | Encounter Summary ---
Author Organization [facility] Address [address] [place] [address]. [place] [id number] Care Team Providers Care Dump Truck Operator Name Role Phone Vernon Mercedes MD Primary Care Provider [phone] Stanislaw Rhodes MD Unavailable Unavailab Elza Ying MD Unavailable UnavailRaul Suresh MD Unavailable Unavailabl Myah Gee NP Unavailable Unavailable Encounter Details Date Type Department Care Team (Late st Contact Info) Description 11/26/2014 Abstract [facility] [address] [place] [address] Danny Steiner MD [address] [place], [place] [phone] Social History Tobacco Use Types Packs/Day Years [...] Amoxicillin-Pot Clavulanate 875-125 MG Oral Tablet; Therapy: [id number] to Recorded 2. Atenolol TABS; Therapy: (Recorded:[id number]) to Recorded 3. Atorvastatin Calcium 40 MG Oral Tablet; Therapy: 26Jun2014 to Recorded 4. HumaLOG 100 UNIT/ML Subcutaneous Solution; Therapy: [id number] to Recorded 5. Hydrocodone-Acetaminophen 5-325 MG Oral Tablet; Therapy: 19Jun2014 to Recorded 6. Hydrocodone-Acetaminophen 7.5-325 MG Oral Tablet; Therapy: 40Tor2740 to Recorded 7. Levemir 100 UNIT/ML Subcutaneous Solution; Therapy: (Recorded:[id number]) to Recorded 8. MetFORMIN HCl TABS; Therapy: (Recorded:[id number]) to Recorded 9. Naprosyn TABS; Therapy: (Recorded:[id number]) to Recorded 10. Oxybutynin Chloride 5 MG Oral Tablet; Therapy: 21Jun2014 to Recorded 11. Ranitidine HCl TABS; Therapy: (Recorded:[id number]) to Recorded 12. Sure Comfort Insulin Syringe 31G X 5/16 0.3 ML Miscellaneous; Therapy: 15Oct2013 to Recorded 13. Sure Comfort Insulin Syringe 31G X 5/16 1 ML Miscellaneous; Therapy: 02Jul2014 to Recorded 14. Tamsulosin HCl - 0.4 MG Oral Capsule; Therapy: (Recorded:[id number]) to Recorded 15. TraMADol HCl TABS; Therapy: (Recorded:[id number]) to Recorded 16. TRUEplus Lancets 28G Miscellaneous; Therapy: 67Jbo0524 to Recorded Allergies 1. Tetracyclines Physical Exam [...] Kaylyn Grimes, ; Nov 26 2014 9:04AM HEAT AND FROST INSULATOR (Author) Electronically signed by : Danny Steiner M.D.; Nov 26 2014 9:05AM HEAT AND FROST INSULATOR (Author) Electronically signed by : Danny Steiner M.D.; Nov 26 2014 9:09AM HEAT AND FROST INSULATOR (Author) Electronically signed by : Danny Steiner M.D.; Nov 26 2014 9:10AM HEAT AND FROST INSULATOR (Author) Electronically signed by : Danny Steiner M.D.; Nov 26 2014 9:12AM HEAT AND FROST INSULATOR (Author) documented in this encounter Plan of Treatment Upcoming Encounters Date Type Department Care Team (Late st Contact Info) Description 04/25/2024 11:00 AM HEAT AND FROST INSULATOR Appointment [facility] [address] [facility] [facility] [place] [address] Ti Bonilla MD [address] [place] [address] 05/23/2024 3:30 PM HEAT AND FROST INSULATOR Office Visit [facility] [address] [place] [address] Jyoti Escobar MD [address] [place] [address] documented as of this encounter Procedures Procedure [...] PM CDT Narrative 11/26/2014 4:56 PM CDT [facility] ?? [address] [place] [address] ?? [place], [place] ? Patient Name: ELZA MCKEON Date of : 1960 ?? Med Rec #: [id number] ??Age/Sex: 54/M ?Pt. Location: ORTHO ?? Attending Provider: DANNY STEINER MD (TRACY) ?? Ordering Provider: DANNY STEINER MD (TRACY) ? Study Date Order Number Procedure ?? 11/26/[id number] XR Knee Standing Bi ? Signed ? [...] Procedure Note Danny Steiner MD - 02/09/[address] Patient Name: ELZA MCKEON Date of : 1960 Med Rec #: [id number] Age/Sex: 54/M Pt. Location: ORTHO Attending Provider: DANNY STEINER MD (TRACY) Ordering Provider: DANNY STEINER MD (TRACY) Study Date Order Number Procedure 11/26/14 [id number] XR Knee Standing Bi Signed 11/26/2014, 1605 [...] PM CDT Narrative 11/26/2014 4:55 PM CDT [facility] ?? [facility] ?? [place], [place] ? Patient Name: ELZA MCKEON Date of : 1960 ?? Med Rec #: [id number] ??Age/Sex: 54/M ?Pt. Location: ORTHO ?? Attending Provider: DANNY STEINER MD (TRACY) ?? Ordering Provider: DANNY STEINER MD (TRACY) ? Study Date Order Number Procedure ?? 11/26/14 [id number] XR Knee 1 to 2 Views Lt [...] Procedure Note Stephani Luz MD - 02/09/[address] Patient Name: ELZA MCKEON Date of : 1960 Med Rec #: [id number] Age/Sex: 54/M Pt. Location: ORTHO Attending Provider: DANNY STEINER MD (TRACY) Ordering Provider: DANNY STEINER MD (TRACY) Study Date Order Number Procedure 11/26/14 [id number] XR Knee 1 to 2 Views Lt [...] BASIC METABOLIC PANEL (11/26/2014 3:51 PM CDT) [facility] GLUCOSE 190(H) 70 - 99 MG/DL [facility] [...] * MRSA SCREENING (11/26/2014 3:45 PM CDT) [facility] MRSA BY PCR NASAL Methicillin resistant Staph aureus detected. CALLED TO [employer] 8.14.15, R AND V Critical result,specimen date,time were read back by ALEXI Mcgowan, at 1115 on 11/28/14.TS [facility] TO EPIC CONVERSION SPECIMEN SOURCE RESPIRATORY, NOSE PERFORMED AT [facility]; [address]; [place], [place] [address]; [phone] EXT [phone], UNLESS OTHERWISE NOTED. [facility] TO EPIC CONVERSION [...] documented as of this encounter Care Teams Dump Truck Operator Relationship Specialty Start Date End Date Vernon Mercedes MD [address] [place] [address] PCP - General FAMILY PRACTICE 10/27/15 12/02/21 Stanislaw Rhodes MD [address] [place] [address] [place] [address] CARDIOVASCULAR DISEASE 10/27/15 10/24/18 Elza Allan MD [address] [place] [address] [place] [address] [place] Locomotive Boilermaker CARDIOVASCULAR DISEASE 08/19/16 Raul Santana MD [address] [place] [address] [place] [address] CLINICAL CARDIAC ELECTROPHYSIOLOGY 06/16/17 Myah Handley, DIE STAMPER [address] [address] CARDIOVASCULAR DISEASE 06/16/17 07/10/19 documented as of this encounter
--- OUTSIDE RECORDS SUMMARY | 2024-04-23 05:22 | XMS_ITS | Encounter Summary ---
Author Organization [facility] Address [address] [place] [address]. [place], [place] [address] [place] [address] Care Team Providers Care Headhunter Name Role Phone Vernon Mercedes MD Primary Care Provider [phone] Stanislaw Rhodes MD Unavailable Unavailab Evaristo Ying MD Unavailable UnavailRaul Suresh MD Unavailable UnavailMyah Elena NP Unavailable Unavailable Deven Cleary MD Unavailable Unavailable Encounter Details Date Type Department Care Team (Late Contact Info) Description 11/26/2015 Abstract [facility] Imaging [address] [place] [address] Danny Blackwell MD [address] [place] [address] Social History Tobacco Use Types [...] Contact Info) Description 04/25/2024 11:00 AM DIRECTOR HR COMMUNICATIONS Appointment [facility] [address] [facility] [address] Ti Bonilla MD [address] [place] [address] 05/23/2024 3:30 PM DIRECTOR HR COMMUNICATIONS [facility] [address] [place] [address] Jyoti Escobar MD [address] [place] [address] documented as of this encounter Visit Diagnoses Diagnosis Aftercare following joint replacement surgery Aftercare following joint replacement documented in this encounter Additional Health Concerns Infection Onset Date Last Indicated Resolved Time MRSA Comment:Negative MRSA 05/201903/11/2017 03/11/2017 10/03/2019 10:08 AM CDT documented as of this encounter Care Teams Headhunter Relationship Specialty Start Date End Date Vernon Mercedes MD [address] [place] [address] PCP - General FAMILY PRACTICE 10/27/15 12/02/21 [place] [address] CARDIOVASCULAR DISEASE 10/27/15 10/24/18 [place] [address] [place] Wing Coverer CARDIOVASCULAR DISEASE 08/19/16 [place] [address] CLINICAL CARDIAC ELECTROPHYSIOLOGY 06/16/17 [place] [address] CARDIOVASCULAR DISEASE 06/16/17 07/10/19 [place] [address] Web Services Architect INTERVENTIONAL CARDIOLOGY 03/21/18 10/24/18 documented as of this encounter
--- OUTSIDE RECORDS SUMMARY | 2024-04-23 05:22 | XMS_ITS | Encounter Summary ---
Author Organization [facility] Address [address] [place] [address]. [place], [place] [address] [place] [address] Care Team Providers Care Mold Setter Name Role Phone Vernon Mercedes MD Primary Care Provider [phone] Stanislaw Rhodes MD Unavailable Unavailab le Reason for Visit * Reason Onset Date Comments Consult 03/09/2016 schedule consult for afib Encounter Details Date Type Department Care Team (Late st Contact Info) Description 03/09/2016 Telephone [employer] [facility] [employer] [facility] [address] [place] [address] Raul Santana MD Consult (schedule [...] scheduled for 04/27/16. Letter sent to pt. ION SPRING COILING MACHINE SETTER documented in this encounter Plan of Treatment Upcoming Encounters Date Type Department Care Team (Late st Contact Info) Description 04/25/2024 11:00 AM TORSION SPRING COILING MACHINE SETTER Appointment [facility] [address] [place] [address] Ti Bonilla MD [address] [place] [phone] 05/23/2024 3:30 PM TORSION SPRING COILING MACHINE SETTER Office Visit [facility] [address] [place] [phone] Jyoti Escobar MD [address] [place] [address] documented as of this encounter Visit Diagnoses Not on filedocumented in this encounter Care Teams Mold Setter Relationship Specialty Start Date End Date Vernon Mercedes MD [address] [place] [address] PCP - General FAMILY PRACTICE 10/27/15 12/02/21 Stanislaw Rhodes MD [address] [place] [address] CARDIOVASCULAR DISEASE 10/27/15 10/24/18 documented as of this encounter
--- OUTSIDE RECORDS SUMMARY | 2024-04-23 05:22 | XMS_ITS | Encounter Summary ---
Author Organization [place] [facility] Address [address] [place] [address]. [place], [place] [address] [place] [address] Care Team Providers Care Databases Computer Consultant Name Role Phone Vernon Mercedes MD Primary Care Provider [phone] Stanislaw Rhodes MD Unavailable Unavailab Evaritso Ying MD Unavailable UnavailRaul Suresh MD Unavailable UnavailMyah Elena NP Unavailable Unavailable Deven Cleary MD Unavailable Unavailable Encounter Details Date Type Department Care Team (Late Contact Info) Description 03/04/2015 Abstract [facility] Diagnostic Imaging [address] [place] [address] Danny Blackwell MD [address] [place], [place] [phone] Social History Tobacco Use Types Packs/Day Years [...] (Late Contact Info) Description 04/25/2024 11:00 AM PATHOLOGY LABORATORY AIDE Appointment [facility] [address] [place] [address] Ti Bonilla MD [address] [place] [address] 05/23/2024 3:30 PM PATHOLOGY LABORATORY AIDE Office [facility] [address] [place] [address] Jyoti Escobar MD [address] [place] [address] documented as of this encounter Visit Diagnoses Diagnosis Aftercare following joint replacement surgery Aftercare following joint replacement documented in this encounter Additional Health Concerns Infection Onset Date Last Indicated Resolved Time MRSA Comment:Negative MRSA 05/201903/11/2017 03/11/2017 10/03/2019 10:08 AM CDT documented as of this encounter Care Teams Databases Computer Consultant Relationship Specialty Start Date End Date Vernon Mercedes MD [address] [place] [address] PCP - General FAMILY PRACTICE 10/27/15 12/02/21 [place] [address] CARDIOVASCULAR DISEASE 10/27/15 10/24/18 [place] [address] [place] Ordnance Engineer CARDIOVASCULAR DISEASE 08/19/16 [place] [address] CLINICAL CARDIAC ELECTROPHYSIOLOGY 06/16/17 Myah Hand[place] [address] CARDIOVASCULAR DISEASE 06/16/17 07/10/19 [place] [address] Driver Supervisor INTERVENTIONAL CARDIOLOGY 03/21/18 10/24/18 documented as of this encounter
--- OUTSIDE RECORDS SUMMARY | 2024-04-23 05:22 | XMS_ITS | Encounter Summary ---
Author Organization [facility] Address [address] [place] [address]. [place], [place] [address] [place] [address] Care Team Providers Care House Calls Nurse Practitioner Name Role Phone Vernon Mercedes MD Primary Care Provider [phone] Stanislaw Rhodes MD Unavailable Unavailab Evaristo Ying MD Unavailable UnavailRaul Suresh MD Unavailable UnavailMyah Elena NP Unavailable Unavailable Deven Cleary MD Unavailable Unavailable Encounter Details Date Type Department Care Team (Late Contact Info) Description 11/19/[address] 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 Not on file Not on file documented as of this encounter Plan of Treatment Upcoming Encounters Date Type Department Care Team (Late Contact Info) Description 04/25/2024 11:00 AM FILM LOADER Appointment [facility] [address] [place] [address] Ti Bonilla MD [address] [place] [address] 05/23/2024 3:30 PM FILM LOADER [facility] [address] [place] [address] Jyoti Escobar MD [address] [place] [address] documented as of this encounter Visit Diagnoses Diagnosis Atrial fibrillation ([facility]/HCC HHS/HCC) Atrial fibrillation documented in this encounter Additional Health Concerns Infection Onset Date Last Indicated Resolved Time MRSA Comment:Negative MRSA 05/201903/11/2017 03/11/2017 10/03/2019 10:08 AM CDT documented as of this encounter Care Teams House Calls Nurse Practitioner Relationship Specialty Start Date End Date Vernon Mercedes MD [address] [place] [address] PCP - General FAMILY PRACTICE 10/27/15 12/02/21 [place] [address] CARDIOVASCULAR DISEASE 10/27/15 10/24/18 [place] [address] [place] Pit Crew Support Worker CARDIOVASCULAR DISEASE 08/19/16 [place] [address] CLINICAL CARDIAC ELECTROPHYSIOLOGY 06/16/17 [place] [address] CARDIOVASCULAR DISEASE 06/16/17 07/10/19 [place] [address] Dishing Machine Operator INTERVENTIONAL CARDIOLOGY 03/21/18 10/24/18 documented as of this encounter
--- OUTSIDE RECORDS SUMMARY | 2024-04-23 05:22 | XMS_ITS | Encounter Summary ---
Author Organization [facility] Address [address] [place] [address]. [place], [place] [address] [place] [address] Care Team Providers Care Vegetable Vendor Name Role Phone Vernon Mercedes MD Primary Care Provider [phone] Stanilsaw Rhodes MD Unavailable Unavailab le Reason for Visit * Reason Comments Atrial Fibrillation Encounter Details Date Type Department Care Team (Latest Contact Info) Description 10/29/2015 9:45 AM CDT Office Visit [facility] AT [address] [place] [address] Stanislaw Rhodes MD Atrial Fibrillation Social History [...] or two ago. Now on Warfarin for intermodal customer service anticoag and atenolol for rate control. 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 Smoking status: [...] chest pain type 3. Essential hypertension 4. shelter current use of anticoagulant therapy 5. SARAI (obstructive sleep apnea) [place] Documentation Completed: Atrial Fibrillation documented in this encounter Plan of Treatment Upcoming Encounters Date Type Department Care Team (Late st Contact Info) Description 04/25/2024 11:00 AM RACING SECRETARY Appointment [facility] [address] [facility] [place] [address] Ti Bonilla MD [address] [place] [phone] 05/23/2024 3:30 PM RACING SECRETARY Office Visit [facility] [address] [place] [phone] Jyoti Escobar MD [address] [place] [address] documented as of this encounter Visit Diagnoses Diagnosis Persistent atrial fibrillation ([facility]/HCC HHS/HCC)- Primary Atrial fibrillation Chest pain, unspecified chest pain type Essential hypertension Unspecified essential hypertension terminal supervisor current use of anticoagulant therapy SARAI (obstructive sleep apnea) Obstructive sleep apnea (adult) (pediatric) documented in this encounter Care Teams Vegetable Vendor Relationship Specialty Start Date End Date Vernon Mercedes MD [address] [place] [address] PCP - General FAMILY PRACTICE 10/27/15 12/02/21 Stanislaw Rhodes MD [address] [place] [address] CARDIOVASCULAR DISEASE 10/27/15 10/24/18 documented as of this encounter
--- OUTSIDE RECORDS SUMMARY | 2024-04-23 05:22 | XMS_ITS | Encounter Summary ---
Author Organization [facility] Address [address] [place] [address]. [place], [place] [address] [place] [address] Care Team Providers Care Accounts Receivable Supervisor Name Role Phone Vernon Mercedes MD Primary Care Provider [phone] Stanislaw Rhodes MD Unavailable Unavailab Evaristo Ying MD Unavailable UnavailRaul Suresh MD Unavailable UnavailMyah Elena NP Unavailable Unavailable Deven Cleary MD Unavailable Unavailable Encounter Details Date Type Department Care Team (Late Contact Info) Description 10/25/2014 Abstract [facility] Diagnostic Imaging [address] [place] [address] Danny Blackwell MD [address] [place], [place] [phone] Social History Tobacco Use Types Packs/Day Years [...] (Late Contact Info) Description 04/25/2024 11:00 AM SPANISH LANGUAGE LECTURER Appointment [facility] [address] [facility] [place] [address] Ti Bonilla MD [address] [place] [phone] 05/23/2024 3:30 PM SPANISH LANGUAGE LECTURER [facility] [address] [place] [address] Jyoti Escobar MD [address] [place] [address] documented as of this encounter Visit Diagnoses Diagnosis Encounter for other specified aftercare documented in this encounter Additional Health Concerns Infection Onset Date Last Indicated Resolved Time MRSA Comment:Negative MRSA 05/201903/11/2017 03/11/2017 10/03/2019 10:08 AM CDT documented as of this encounter Care Teams Accounts Receivable Supervisor Relationship Specialty Start Date End Date Vernon Mercedes MD [address] [place] [address] PCP - General FAMILY PRACTICE 10/27/15 12/02/21 [place] [address] CARDIOVASCULAR DISEASE 10/27/15 10/24/18 [place] [address] Hernandez Cloth Pattern Maker CARDIOVASCULAR DISEASE 08/19/16 [place] [address] CLINICAL CARDIAC ELECTROPHYSIOLOGY 06/16/17 Myah Handley, [place] [address] CARDIOVASCULAR DISEASE 06/16/17 07/10/19 [place] [address] Reaming Press Operator INTERVENTIONAL CARDIOLOGY 03/21/18 10/24/18 documented as of this encounter
--- OUTSIDE RECORDS SUMMARY | 2024-04-23 05:22 | XMS_ITS | Encounter Summary ---
Author Organization [facility] Address [address] [place] [address]. [place] [address] [place] [address] Care Team Providers Care Behavioral Consultant Name Role Phone Vernon Mercedes MD Primary Care Provider Stanislaw Rhodes MD Unavailable Unavailab le Reason for Referral * Imaging (Routine) - Closed Specialty Diagnoses / Procedures Referred By Contac t Referred To Contact CARDIOVASCULAR DISEASE Diagnoses Paroxysmal atrial fibrillation ([facility]/HCC HHS/HCC) Procedures XA A-FIB ABLATION Raul Santana MD [facility] [address] [place] [address] Phone: tel: Referral ID Status Reason Start Date Expiration Date Visits Re quested Visits Authorized [id number] Closed 05/06/2016 05/07/2017 1 1 MANAGER Reason for Visit * Reason Onset Date Comments Schedule Procedure 05/05/2016 Pt was callin g to see when he will have his procedure. Encounter Details Date Type Department Care Team (Late st Contact Info) Description 05/05/2016 Telephone [facility] CARDI[facility]ASCULAR 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 Instruction letter reviewed over the phone and mailed. I encouraged them to call with questions/concerns. MANAGER * Janeen Hugo - 05/05/2016 9:13 AM [...] a call back. Please call him at [phone]. MANAGER documented in this encounter Plan of Treatment Upcoming Encounters Date Type Department Care Team (Late st Contact Info) Description 04/25/2024 11:00 AM TAX MANAGER Appointment [facility] [address] [place] [address] Ti Bonilla MD [address] [place] [phone] 05/23/2024 3:30 PM TAX MANAGER Office Visit [facility] [address] [place] [phone] Jyoti Escobar MD [address] [place] [address] Scheduled Orders Name Type Priority Associated Diagnoses Orde r Schedule XA A-FIB ABLATION Cardiac Cath Routine Paroxysmal atrial fibrillation ([facility]) Expected: 05/19/2016, Expires: 05/06/2017 documented as of this encounter Visit Diagnoses Diagnosis Paroxysmal atrial fibrillation ([facility])- Primary Atrial fibrillation documented in this encounter Care Teams Behavioral Consultant Relationship Specialty Start Date End Date Vernon Mercedes MD [address] [place] [phone] PCP - General FAMILY PRACTICE 10/27/15 12/02/21 Stanislaw Rhodes MD [address] [place] [address] CARDIOVASCULAR DISEASE 10/27/15 10/24/18 documented as of this encounter
--- OUTSIDE RECORDS SUMMARY | 2024-04-23 05:22 | XMS_ITS | Encounter Summary ---
Author Organization [facility] Address [address] [place] [address]. [place], [place] [address] [place], [place] [phone] Care Team Providers Care Weight Count Operator Name Role Phone Vernon Mercedes MD Primary Care Provider [phone] Stanislaw Rhodes MD Unavailable Unavailab Elza Ying MD Unavailable UnavailRaul Suresh MD Unavailable Unavailabl Myah Gee NP Unavailable Unavailable Encounter Details Date Type Department Care Team (Late st Contact Info) Description 01/21/2015 Abstract [facility] [address] [place] [address] Danny Steiner MD [address] [place], [place] [phone] Social History Tobacco Use Types Packs/Day Years [...] PAIN To Hydrocodone-Acetaminophen 7.5-325 MG Oral Tablet ([place]) 1 q 6 hrs prn pain 3. XR Knee 1 to 2 View Lt; Status:Active; Requested for:[id number]; 4. XR Knee Standing Bi; Status:Active; Requested for:[id number]; Assessment 1. Aftercare following knee joint replacement surgery (V54.81,V43.65) (Z47.1,Z96.659) '''School / Work Excuse''' Return to School - Work: Elza Mckeon may return to work on 01/21/2015. Elza can return without limitations. Signatures Electronically signed by : Kaylyn Grimes, ; Jan 21 2015 9:16AM COOLER TENDER (Author) Electronically signed by : Danny Steiner M.D.; Jan 21 2015 9:18AM COOLER TENDER (Author) documented in this encounter Plan of Treatment Upcoming Encounters Date Type Department Care Team (Late st Contact Info) Description 04/25/2024 11:00 AM COOLER TENDER [facility]oint[address] [facility] [facility] [place] [address] Ti Bonilla MD [address] [place] [address] 05/23/2024 3:30 PM COOLER TENDER Office Visit [facility] [place] [address] Jyoti Escobar MD [address] [place] [address] documented as of this encounter Procedures Procedure [...] PM CDT Narrative 01/21/2015 3:18 PM CDT [facility] ?? [address] [place] [address] ?? [place], [place] ? Patient Name: ELZA MCKEON Date of : 1960 ?? Med Rec #: [id number] ??Age/Sex: 55/M ?Pt. Location: ORTHO ?? Attending Provider: DANNY STEINER MD (TRACY) ?? Ordering Provider: DANNY STEINER MD (TRACY) ? Study Date Order Number Procedure ?? 01/21/15 [id number] XR Knee Standing Bi ? Signed ? [...] Procedure Note Danny Steiner MD - 02/10/[address] Patient Name: ELZA MCKEON Date of : 1960 Med Rec #: [id number] Age/Sex: 55/M Pt. Location: ORTHO Attending Provider: DANNY STEINER MD (TRACY) Ordering Provider: DANNY STEINER MD (TRACY) Study Date Order Number Procedure 01/21/15 [id number] XR Knee Standing Bi Signed Date: 01/21/2015. [...] PM CDT Narrative 01/21/2015 3:18 PM CDT [facility] ?? [facility] ?? [place], [place] ? Patient Name: ELZA MCKEON Date of : 1960 ?? Med Rec #: [id number] ??Age/Sex: 55/M ?Pt. Location: ORTHO ?? Attending Provider: DANNY STEINER MD (TRACY) ?? Ordering Provider: DANNY STEINER MD (TRACY) ? Study Date Order Number Procedure ?? 01/21/15 [id number] XR Knee Standing Bi ? Signed ? [...] Procedure Note Stephani Luz MD - 02/08/[address] Patient Name: ELZA MCKEON Date of : 1960 Med Rec #: [id number] Age/Sex: 55/M Pt. Location: ORTHO Attending Provider: DANNY STEINER MD (TRACY) Ordering Provider: DANNY STEINER MD (TRACY) Study Date Order Number Procedure 01/21/15 [id number] XR Knee Standing Bi Signed Date: 01/21/2015. [...] documented as of this encounter Care Teams Weight Count Operator Relationship Specialty Start Date End Date Vernon Mercedes MD [address] [place] [phone] PCP - General FAMILY PRACTICE 10/27/15 12/02/21 [place] [place] [address] CARDIOVASCULAR DISEASE 10/27/15 10/24/18 [place] [address] [place] Child Development Consultant CARDIOVASCULAR DISEASE 08/19/16 Ra[place] [address] CLINICAL CARDIAC ELECTROPHYSIOLOGY 06/16/17 [place] [place] [address] CARDIOVASCULAR DISEASE 06/16/17 07/10/19 documented as of this encounter
--- OUTSIDE RECORDS SUMMARY | 2024-04-23 05:22 | XMS_ITS | Encounter Summary ---
Author Organization [facility] Address [address] [place] [address]. 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 Not on file Not on file documented as of this encounter Last Filed Vital Signs Vital Sign Reading Time Taken Comments Blood Pressure 102/66 03/08/2016 10:51 AM BAND TEACHER Pulse 102 03/08/2016 10:51 AM BAND TEACHER Temperature - - Respiratory Rate 18 03/08/2016 10:51 AM BAND TEACHER Oxygen Saturation 95% 03/08/2016 10:51 AM BAND TEACHER Inhaled Oxygen Concentration - - Weight 127.9 kg (282 lb) 03/08/2016 10:51 AM BAND TEACHER Height 177.8 cm (5' 10 ) 03/08/2016 10:51 AM BAND TEACHER Body Mass Index 40.46 03/08/2016 10:51 AM BAND TEACHER documented in this encounter Patient Instructions * Patient Instructions* Marcelle Madden, [place] - 03/08/2016 11:05 AM BAND TEACHER Images from the original note were not included. 1. Consult for arrhythmia - Dr Santana's office will call with appointment 2. Obtain EKG in clinic 3. Same medications Index Persian Related??topics Atrial Fibrillation [place] ?? Atrial [...] healthcare provider's instructions for treatment. Developed by [employer]. Adult Advisor 2015.3 published by [employer]. Last modified: 2015-07-09 Last reviewed: 2014-12-16 This content is reviewed periodically and is subject to change as new health information becomes available. The information is intended to inform and educate and is not a replacement for medical evaluation, advice, diagnosis or treatment by a healthcare professional. References Adult Advisor 2015.3 Index Copyright ?? 2016 [employer], a division of [employer]. All rights reserved. TEACHER TEACHER TEACHER documented in this encounter Progress Notes * Evaristo Allan MD - 08/10/2016 5:56 PM CDT HISTORY OF PRESENT ILLNESS: Mr. Zelaya patient is seen in the [place] [facility] clinic today in consultation. 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 Smoking status: [...] Essential hypertension 3. 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 SARAI (obstructive sleep apnea) [place] Documentation Completed: Atrial Fibrillation Referring Provider: No ref. provider found PCP: VERNON DELGADO documented in this encounter Plan of Treatment Upcoming Encounters Date Type Department Care Team (Late st Contact Info) Description 04/25/2024 11:00 AM BAND TEACHER Appointment [facility] [address] [place] [address] Ti Bonilla MD [address] [place] [phone] 05/23/2024 3:30 PM BAND TEACHER Office Visit [facility] [address] [place] [address] Jyoti Escobar MD [address] [place] [address] documented as of this encounter Visit Diagnoses Diagnosis Essential hypertension- Primary Unspecified essential hypertension Paroxysmal atrial fibrillation (CMS/HCC HHS/HCC) Atrial fibrillation SARAI (obstructive sleep apnea) Obstructive sleep apnea (adult) (pediatric) penit[facility] current use of anticoagulant therapy documented in this encounter Care Teams Records Clerk Relationship Specialty Start Date End Date Vernon Delgado MD [address] [place] [address] PCP - General FAMILY PRACTICE 10/27/15 12/02/21 Stanislaw Rhodes MD [address] [facility] [place] [address] CARDIOVASCULAR DISEASE 10/27/15 10/24/18 documented as of this encounter
--- OUTSIDE RECORDS SUMMARY | 2024-04-23 05:22 | XMS_ITS | Encounter Summary ---
Author Organization [facility] Address [address] [place] [address]. 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 [place] [place] [address] Ti Bonilla MD [address] [place] [phone] 05/23/2024 3:30 PM SALVAGE MECHANIC [facility] [place] [address] Jyoti Escobar MD [address] [place] [address] documented as of this encounter Procedures Procedure Name Priority Date/Time Associated Diagnosis Comments ECG 12-LEAD Routine 05/19/2016 4:18 PM SALVAGE MECHANIC ECG 12-LEAD Routine 05/19/2016 10:23 AM SALVAGE MECHANIC documented in this encounter Results * ECG 12 lead (05/19/2016 4:18 PM SALVAGE MECHANIC) 05/19/2016 4:18 PM SALVAGE MECHANIC Narrative [facility] - 05/19/2016 5:59 PM SALVAGE MECHANIC ? [facility] ? [address] [place], [place] ??[address] ? Test Date: ?2016-05-19 Pat Name: ? ELZA MCKEON ? Department: ?? 1 ? Room: ? CRU1 Gender: ? M ?Milling Machine Operator Gear: ?? TJ : ?1960 ? Requested By: EVE CARRERA Order Number: [id number] ? Jose Antonio OSMAN: ?? Valeriy Florian ? Measurements Intervals ?[place] ? Rate: ? 65 ? P: ?33 FL: ? 117 ?QRS: ?13 QRSD: ? 112 ?T: ?34 QT: ? 414 ? QTc: ?432 ? Interpretive Statements SINUS RHYTHM WITH SINUS ARRHYTHMIA WITH SHORT FL INTERVAL INCOMPLETE RIGHT BUNDLE BRANCH BLOCK AGE MECHANIC Procedure Note Stephani Osman MD - 12/11/2018 [facility] [address] [place] [address] Test Date: 2016-05-19 Pat Name: ELZA MCKEON Department: 1 Room: [facility] Gender: M Milling Machine Operator Gear: TJ : 1960 Requested By: EVE CARRERA Order Number: [id number] Reading : Valeriy Florian Measurements Intervals [place] Rate: 65 P: 33 FL: 117 QRS: 13 QRSD: 112 T: 34 QT: 414 QTc: 432 Interpretive Statements SINUS RHYTHM WITH SINUS ARRHYTHMIA WITH SHORT FL INTERVAL INCOMPLETE RIGHT BUNDLE BRANCH BLOCK AGE MECHANIC us Generic Conversion Md OSMAN ECG ORDERABLES Final R esult [facility] * ECG 12 lead (05/19/2016 10:23 AM SALVAGE MECHANIC) 05/19/2016 10:2 3 AM SALVAGE MECHANIC Narrative [facility] - 05/19/2016 6:06 PM SALVAGE MECHANIC ? [facility] ? [address] [place], [place] ??[address] ? Test Date: ?2016-05-19 Pat Name: ? ELZA MCKEON ? Department: ?? 1 ? Room: ? CRU1 Gender: ? M ?Milling Machine Operator Gear: ?? TJ : ?1960 ? Requested By: EVE CARRERA Order Number: [id number] ? Reading : ?? Valeriy Florian ? Measurements Intervals ?[place] ? Rate: ? 61 ? P: ?19 FL: ? 133 ?QRS: ?29 QRSD: ? 105 ?T: ?7 QT: ? 391 ? QTc: ?396 ? Interpretive Statements SINUS RHYTHM WITH MARKED SINUS ARRHYTHMIA LOW QRS VOLTAGE IN PRECORDIAL LEADS INCOMPLETE RIGHT BUNDLE BRANCH BLOCK AGE MECHANIC Procedure Note Stephani Osman MD - 12/11/2018 [place] [address] [place] [address] Test Date: 2016-05-19 Pat Name: [facility] Department: 1 Room: [facility] Gender: M Milling Machine Operator Gear: TJ : 1960 Requested By: EVE CARRERA Order Number: [id number] Reading : Valeriy Florian Measurements Intervals [place] Rate: 61 P: 19 FL: 133 QRS: 29 QRSD: 105 T: 7 QT: 391 QTc: 396 Interpretive Statements SINUS RHYTHM WITH MARKED SINUS ARRHYTHMIA LOW QRS VOLTAGE IN PRECORDIAL LEADS INCOMPLETE RIGHT BUNDLE BRANCH BLOCK AGE MECHANIC us Generic Conversion Md OSMAN ECG ORDERABLES Final R esult [facility] documented in this encounter Visit Diagnoses Not on filedocumented in this encounter Additional Health Concerns Infection Onset Date Last Indicated Resolved Time MRSA Comment:Negative MRSA 05/201903/11/2017 03/11/2017 10/03/2019 10:08 AM CDT documented as of this encounter Care Teams Curer Acid Drum Relationship Specialty Start Date End Date Vernon Mercedes MD [address] [place] [phone] PCP - General FAMILY PRACTICE 10/27/15 12/02/21 Stanislaw Rhodes MD [address] [place] [address] CARDIOVASCULAR DISEASE 10/27/15 10/24/18 Elza Allan MD [address] [place] [address] [place] Electronic Organ Mechanic CARDIOVASCULAR DISEASE 08/19/16 Eve Carrera MD [address] [place] [address] CLINICAL CARDIAC ELECTROPHYSIOLOGY 06/16/17 [place] [address] [address] CARDIOVASCULAR DISEASE 06/16/17 07/10/19 documented as of this encounter
--- OUTSIDE RECORDS SUMMARY | 2024-04-23 05:22 | XMS_ITS | Encounter Summary ---
Author Organization [facility] Address [address] [place] [address]. [place], [place] [address] [place] [address] Care Team Providers Care Glass Vial Filler Name Role Phone Vernon Mercedes MD Primary Care Provider [phone] Stanislaw Rhodes MD Unavailable Unavailab Evaristo Ying MD Unavailable UnavailRaul Suresh MD Unavailable UnavailMyah Elena NP Unavailable Unavailable Deven Cleary MD Unavailable Unavailable Encounter Details Date Type Department Care Team (Late st Contact Info) Description 05/05/[address] [facility] [address] [place] [address] Vernon Mercedes MD [address] [place] [phone] Social History Tobacco Use Types Packs/Day Years [...] st Contact Info) Description 04/25/2024 11:00 AM GRINDING ROOM SUPERVISOR Appointment [facility] [address] [place] [address] Ti Bonilla MD [address] [place] [phone] 05/23/2024 3:30 PM GRINDING ROOM SUPERVISOR [facility] [address] [place] [address] Jyoti Escobar MD [address] [place] [address] documented as of this encounter Visit Diagnoses Diagnosis Obstructive sleep apnea Obstructive sleep apnea (adult) (pediatric) documented in this encounter Additional Health Concerns Infection Onset Date Last Indicated Resolved Time MRSA Comment:Negative MRSA 05/201903/11/2017 03/11/2017 10/03/2019 10:08 AM CDT documented as of this encounter Care Teams Glass Vial Filler Relationship Specialty Start Date End Date Vernon Mercedes MD [address] [place] [address] PCP - General FAMILY PRACTICE 10/27/15 12/02/21 [place] [address] CARDIOVASCULAR DISEASE 10/27/15 10/24/18 [place] [address] [place] Tile Layer Supervisor CARDIOVASCULAR DISEASE 08/19/16 [place] [address] CLINICAL CARDIAC ELECTROPHYSIOLOGY 06/16/17 Myah Handley CLINICAL SPECIAL[place] [address] CARDIOVASCULAR DISEASE 06/16/17 07/10/19 [place] [address] Custom Stock Maker INTERVENTIONAL CARDIOLOGY 03/21/18 10/24/18 documented as of this encounter
--- OUTSIDE RECORDS SUMMARY | 2024-04-23 05:22 | XMS_ITS | Encounter Summary ---
Author Organization [facility] Address [address] [place] [address]. 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 [address] [place] [address] Ti Bonilla MD [address] [place] [phone] 05/23/2024 3:30 PM FREEDOM OF INFORMATION OFFICER Office Visit [facility] [address] [place] [phone] Jyoti Escobar MD [address] [place] [address] documented as of this encounter Visit Diagnoses Not on filedocumented in this encounter Care Teams Electrician Outside Relationship Specialty Start Date End Date Vernon Mercedes MD [address] [place] [address] PCP - General FAMILY PRACTICE 10/27/15 12/02/21 Stanislaw Rhodes MD [address] [place] [address] CARDIOVASCULAR DISEASE 10/27/15 10/24/18 documented as of this encounter
--- OUTSIDE RECORDS SUMMARY | 2024-04-23 05:22 | XMS_ITS | Encounter Summary ---
Author Organization [facility] Address [address] [place] [address]. [place], [place] [address] [place] [address] Care Team Providers Care Electric Screw Driver Operator Name Role Phone Vernon Mercedes MD Primary Care Provider [phone] Stanislaw Rhodes MD Unavailable Unavailab Evaristo Ying MD Unavailable UnavailRaul Suresh MD Unavailable UnavailMyah Elena NP Unavailable Unavailable Deven Cleary MD Unavailable Unavailable Encounter Details Date Type Department Care Team (Late Contact Info) Description 09/04/2014 Abstract [facility] Diagnostic Imaging [address] [place] [address] Danny Blackwell MD [address] [place], [place] [phone] Social History Tobacco Use Types Packs/Day Years [...] (Late Contact Info) Description 04/25/2024 11:00 AM SNOWMAKER Appointment [facility] [address] [place] [address] Ti Bonilla MD [address] [place] [phone] 05/23/2024 3:30 PM SNOWMAKER [facility] [address] [place] [address] Jyoti Escobar MD 9 [place] [address] documented as of this encounter Visit Diagnoses Diagnosis Encounter for other specified aftercare documented in this encounter Additional Health Concerns Infection Onset Date Last Indicated Resolved Time MRSA Comment:Negative MRSA 05/201903/11/2017 03/11/2017 10/03/2019 10:08 AM CDT documented as of this encounter Care Teams Electric Screw Driver Operator Relationship Specialty Start Date End Date Vernon Mercedes MD [address] [place] [address] PCP - General FAMILY PRACTICE 10/27/15 12/02/21 [place] [address] CARDIOVASCULAR DISEASE 10/27/15 10/24/18 [place] [address] [place] Shoe Repair Cobbler CARDIOVASCULAR DISEASE 08/19/16 [place] [address] CLINICAL CARDIAC ELECTROPHYSIOLOGY 06/16/17 Myah Handley, ASSOCIATE [place] [address] CARDIOVASCULAR DISEASE 06/16/17 07/10/19 [place] [address] Construction Or Leak Gang Laborer INTERVENTIONAL CARDIOLOGY 03/21/18 10/24/18 documented as of this encounter
--- OUTSIDE RECORDS SUMMARY | 2024-04-23 05:22 | XMS_ITS | Encounter Summary ---
Author Organization [facility] Address [address] [place] [address]. 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 A short NM interval is noted. 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 [...] atrial fibrillation ELECTROCARDIOGRAM (NON MIDMARK ACQUIRED) 2. [facility] current use of anticoagulant therapy PROTHROMBIN TIME, FINGERSTICK PROTHROMBIN TIME, FINGERSTICK 3. SARAI (obstructive sleep apnea) PIN[place] Documentation Completed: Atrial Fibrillation Referring Provider: Vernon Delgado PCP: VERNON DELGADO STICS DIRECTOR documented in this encounter Plan of Treatment Upcoming Encounters Date Type Department Care Team (Late st Contact Info) Description 04/25/2024 11:00 AM LOGISTICS DIRECTOR [address] [facility] [address] [place] [address] [place] [address] Ti Bonilla MD [address] [place] [phone] 05/23/2024 3:30 PM LOGISTICS DIRECTOR Office [facility] [place] [address] Jyoti Escobar MD [address] [place] [address] documented as of this encounter Procedures Procedure Name Priority Date/Time Associated Diagnosis Comments PROTHROMBIN TIME, FINGERSTICK Routine 04/27/2016 10:52 AM LOGISTICS DIRECTOR [facility] current use of anticoagulant therapy documented in this encounter Results * PROTHROMBIN TIME, FINGERSTICK (04/27/2016 10:52 AM LOGISTICS DIRECTOR) PROTIME WHOLE BLOOD 1.7 INR WHOLE BLOOD 1.70 04/27/2016 10:5 2 AM LOGISTICS DIRECTOR us Raul Santana MD LABORATORY Final Resul t documented in this encounter Visit Diagnoses Diagnosis Paroxysmal atrial fibrillation ([facility])- Primary Atrial fibrillation [facility] current use of anticoagulant therapy SARAI (obstructive sleep apnea) Obstructive sleep apnea (adult) (pediatric) documented in this encounter Care Teams Continuity Reader Relationship Specialty Start Date End Date Vernon Delgado MD [address] [place] [phone] PCP - General FAMILY PRACTICE 10/27/15 12/02/21 Stanislaw Rhodes MD [address] [place] [address] CARDIOVASCULAR DISEASE 10/27/15 10/24/18 documented as of this encounter
--- OUTSIDE RECORDS SUMMARY | 2024-04-23 05:22 | XMS_ITS | Encounter Summary ---
Author Organization [facility] Address [address] [place] [address]. [place], [place] [address] [place] [address] Care Team Providers Care Poultry Offal Icer Name Role Phone Vernon Mercedes MD Primary Care Provider Stanislaw Rhodes MD Unavailable Unavailab Evaristo Ying MD Unavailable UnavailRaul Suresh MD Unavailable UnavailMyah Elena NP Unavailable Unavailable Deven Cleary MD Unavailable Unavailable Encounter Details Date Type Department Care Team (Late Contact Info) Description 11/26/2014 Abstract [facility] Diagnostic Imaging [address] [place] [address] Danny Blackwell MD [address] [place], [place] [phone] Social History Tobacco Use Types Packs/Day Years [...] (Late Contact Info) Description 04/25/2024 11:00 AM CHURN OPERATOR Appointment [facility] [address] [facility] [place] [address] Ti Bonilla MD [address] [place] [phone] 05/23/2024 3:30 PM CHURN OPERATOR [facility] [address] [place] [address] Jyoti Escobar MD [address] [place] [address] documented as of this encounter Visit Diagnoses Diagnosis Arthropathy, lower leg Unspecified arthropathy, lower leg documented in this encounter Additional Health Concerns Infection Onset Date Last Indicated Resolved Time MRSA Comment:Negative MRSA 05/201903/11/2017 03/11/2017 10/03/2019 10:08 AM CDT documented as of this encounter Care Teams Poultry Offal Icer Relationship Specialty Start Date End Date Vernon Mercedes MD [address] [place] [address] PCP - General FAMILY PRACTICE 10/27/15 12/02/21 [place] [address] CARDIOVASCULAR DISEASE 10/27/15 10/24/18 [place] [address] [place] Inspector Machined Parts CARDIOVASCULAR DISEASE 08/19/16 [place] [address] CLINICAL CARDIAC ELECTROPHYSIOLOGY 06/16/17 Myah Handley ADMINISTRATIVE [place] [address] CARDIOVASCULAR DISEASE 06/16/17 07/10/19 [place] [address] Crew Mess Attendant INTERVENTIONAL CARDIOLOGY 03/21/18 10/24/18 documented as of this encounter
--- OUTSIDE RECORDS SUMMARY | 2024-04-23 05:22 | XMS_ITS | Encounter Summary ---
Author Organization [facility] Address [address] [place] [address]. [place], [place] [address] [place] [address] Care Team Providers Care Store Operations Manager Name Role Phone Vernon Mercedes MD Primary Care Provider [phone] Stanislaw Rhodes MD Unavailable Unavailab Evaristo Ying MD Unavailable Unavailabl e Encounter Details Date Type Department Care Team (Late Contact Info) Description 05/19/2016 Orders Only [place] [address] , Generic Conversion, Social History Tobacco Use [...] (Late Contact Info) Description 04/25/2024 11:00 [address]IATRIC LPN [address] [facility] [place] [address] Ti Bonilla MD [address] [place] [phone] 05/23/2024 3:30 PM PEDIATRIC LPN Office Visit [facility] [address] [place] [address] Jyoti Escobar MD [address] [place], [place] [address] documented as of this encounter Procedures Procedure Name Priority Date/Time Associated Diagnosis Comments ACT (HMT OR LHMT) Routine 05/19/2016 1:2 2 PM PEDIATRIC LPN documented in this encounter Results * (ABNORMAL) ACT (HMT OR LHMT) (05/19/2016 1:22 PM PEDIATRIC LPN) ACTIVATED CLOTTING TIME (ACT HMT OR LMT) 229(H) 74 - 137 SEC 05/19/2016 1:29 PM PEDIATRIC LPN [facility] LAB ORDERS INTERFACE WHOLE BLOOD SPECIMEN / Unknown 05/19/2016 1:22 PM PEDIATRIC LPN 05/19/2016 1:29 PM PEDIATRIC LPN us Generic Conversion Md OSMAN LAB BLOOD ORDERABLES Fi nal Result [facility] LAB ORDERS INTERFACE US documented in this encounter Visit Diagnoses Not on filedocumented in this encounter Additional Health Concerns Infection Onset Date Last Indicated Resolved Time MRSA Comment:Negative MRSA 05/201903/11/2017 03/11/2017 10/03/2019 10:08 AM CDT documented as of this encounter Care Teams Store Operations Manager Relationship Specialty Start Date End Date Vernon Mercedes MD [address] [place] [address] PCP - General FAMILY PRACTICE 10/27/15 12/02/21 [place] [address] CARDIOVASCULAR DISEASE 10/27/15 7 [place] [address] [place] Personal Banker CARDIOVASCULAR DISEASE 08/19/16 documented as of this encounter
--- OUTSIDE RECORDS SUMMARY | 2024-04-23 05:22 | XMS_ITS | Encounter Summary ---
Author Organization [facility] Address [address] [place] [address]. [place], [place] [address] [place] [address] Care Team Providers Care Metalsmith Helper Name Role Phone Vernon Mercedes MD Primary Care Provider [phone] Stanislaw Rhodes MD Unavailable Unavailab Evaristo Ying MD Unavailable Unavailabl e Encounter Details Date Type Department Care Team (Late Contact Info) Description 05/19/2016 Orders Only [place] [address] , Generic Conversion, Social History Tobacco Use [...] (Late Contact Info) Description 04/25/2024 11:00 [address] [facility] [place] [address] Ti Bonilla MD [address] [place] [phone] 05/23/2024 3:30 PM CAR SCRUBBER Office Visit [facility] [address] [place] [address] Jyoti Escobar MD [address] [place], [place] 76[address] documented as of this encounter Procedures Procedure Name Priority Date/Time Associated Diagnosis Comments ACT (HMT OR LHMT) Routine 05/19/2016 2:1 9 PM CAR SCRUBBER documented in this encounter Results * (ABNORMAL) ACT (HMT OR LHMT) (05/19/2016 2:19 PM CAR SCRUBBER) ACTIVATED CLOTTING TIME (ACT HMT OR LMT) 332(H) 74 - 137 SEC 05/19/2016 2:24 PM CAR SCRUBBER [facility] LAB ORDERS INTERFACE WHOLE BLOOD SPECIMEN / Unknown 05/19/2016 2:19 PM CAR SCRUBBER 05/19/2016 2:24 PM CAR SCRUBBER us Generic Conversion Md [facility] LAB BLOOD ORDERABLES Fi nal Result [facility] LAB ORDERS INTERFACE US documented in this encounter Visit Diagnoses Not on filedocumented in this encounter Additional Health Concerns Infection Onset Date Last Indicated Resolved Time MRSA Comment:Negative MRSA 05/201903/11/2017 03/11/2017 10/03/2019 10:08 AM CDT documented as of this encounter Care Teams Metalsmith Helper Relationship Specialty Start Date End Date Vernon Mercedes MD [address] [place] [address] PCP - General FAMILY PRACTICE 10/27/15 12/02/21 [place] [address] CARDIOVASCULAR DISEASE 10/27/15 7 [place] [address] [place] [facility] Technical Specialist CARDIOVASCULAR DISEASE 08/19/16 documented as of this encounter
--- OUTSIDE RECORDS SUMMARY | 2024-04-23 05:22 | XMS_ITS | Encounter Summary ---
Author Organization [facility] Address [address] [place] [address]. [place], [place] [address] [place] [address] Care Team Providers Care Forensic Engineer Name Role Phone Vernon Mercedes MD Primary Care Provider [phone] Stanislaw Rhodes MD Unavailable Unavailab Evaristo Ying MD Unavailable UnavailRaul Suresh MD Unavailable UnavailMyah Elena NP Unavailable Unavailable Deven Cleary MD Unavailable Unavailable Encounter Details Date Type Department Care Team (Late Contact Info) Description 12/24/2014 Abstract [facility] Diagnostic Imaging [address] [place] [address] Danny Blackwell MD [address] [place], [place] [phone] Social History Tobacco Use Types Packs/Day Years [...] (Late Contact Info) Description 04/25/2024 11:00 AM ROTARY DRILL OPERATOR HELPER Appointment [facility] [address] [facility] [address] Ti Bonilla MD [address] [place] [phone] 05/23/2024 3:30 PM ROTARY DRILL OPERATOR HELPER [facility] [address] [place] [address] Jyoti Escobar MD 9 [place] [address] documented as of this encounter Visit Diagnoses Diagnosis Aftercare following joint replacement documented in this encounter Additional Health Concerns Infection Onset Date Last Indicated Resolved Time MRSA Comment:Negative MRSA 05/201903/11/2017 03/11/2017 10/03/2019 10:08 AM CDT documented as of this encounter Care Teams Forensic Engineer Relationship Specialty Start Date End Date Vernon Mercedes MD [address] [place] [address] PCP - General FAMILY PRACTICE 10/27/15 12/02/21 [place] [address] CARDIOVASCULAR DISEASE 10/27/15 10/24/18 [place] [address] [place] Log Rider CARDIOVASCULAR DISEASE 08/19/16 [place] [address] CLINICAL CARDIAC ELECTROPHYSIOLOGY 06/16/17 Myah Handley, CHIEF STR[place] [address] CARDIOVASCULAR DISEASE 06/16/17 07/10/19 [place] [address] Dry Kiln Feeder INTERVENTIONAL CARDIOLOGY 03/21/18 10/24/18 documented as of this encounter
--- OUTSIDE RECORDS SUMMARY | 2024-04-23 05:22 | XMS_ITS | Encounter Summary ---
Author Organization [facility] Address [address] [place] [address]. 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 [place] [address] Ti Bonilla MD [address] [place] [phone] 05/23/2024 3:30 PM BLOCK ENGRAVER Office Visit [facility] [address] Jyoti Escobar MD [address] [place] [address] documented as of this encounter Procedures Procedure Name Priority Date/Time Associated Diagnosis Comments XR CHEST PA+LAT 05/20/2016 6:50 AM BLOCK ENGRAVER documented in this encounter Results * XR CHEST PA+LAT (05/20/2016 6:50 AM BLOCK ENGRAVER) Anatomical Region Laterality Modality Chest Radiographic Shannan ging 05/20/2016 6:50 AM BLOCK ENGRAVER Narrative 05/20/2016 12:[address] [facility] ?? [place], [place] ?? Department of Radiology ? ELZA MCKEON MD: EVE CARRERA MD ?? Acct: [id number] ?? : 1960 Pt Type: REG SDC ?? Sex: M Ord Site: MAIN ? Study Date Accession # Procedure Code Procedure ?? 05/20/16 [id number] CXR2V XR Chest 2 View ? Signed [...] Procedure Note Stephani Luz MD - 05/20/2016 [place], [place] Department of Radiology ELZA MCKEON MD: EVE CARRERA MD Acct: [id number] : 1960 Pt Type: REG SDC Sex: M Ord Site: MAIN Study Date Accession # Procedure Code Procedure 05/20/16 [id number] CXR2V XR Chest 2 View Signed EXAM: [...] on filedocumented in this encounter Care Teams Screen And Cyclone Repairer Relationship Specialty Start Date End Date Vernon Mercedes MD [address] [place] [phone] PCP - General FAMILY PRACTICE 10/27/15 12/02/21 Stanislaw Rhodes MD [address] [place] [address] CARDIOVASCULAR DISEASE 10/27/15 10/24/18 documented as of this encounter
--- OUTSIDE RECORDS SUMMARY | 2024-04-23 05:22 | XMS_ITS | Encounter Summary ---
Author Organization [facility] Address [address] [place] [address]. 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 [place] [address] Ti Bonilla MD [address] [place] [phone] 05/23/2024 3:30 PM ANDROID PLATFORM DEVELOPER Office Visit [facility] [address] [place] [address] Jyoti Escobar MD [address] [place] [phone] documented as of this encounter Visit Diagnoses Not on filedocumented in this encounter Care Teams Cattle Sprayer Relationship Specialty Start Date End Date Vernon Mercedes MD [address] [place] [address] PCP - General FAMILY PRACTICE 10/27/15 12/02/21 Stanislaw Rhodes MD [address] [place] [address] CARDIOVASCULAR DISEASE 10/27/15 10/24/18 documented as of this encounter
--- OUTSIDE RECORDS SUMMARY | 2024-04-23 05:22 | XMS_ITS | Encounter Summary ---
Author Organization [facility] Address [address] [place] [address]. 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 [place] [address] Ti Bonilla MD [address] [place] [phone] 05/23/2024 3:30 PM BLISTER PACK OPERATOR Office Visit [facility] [address] [place] [phone] Jyoti Escobar MD [address] [place], [place] [address] documented as of this encounter Procedures Procedure Name Priority Date/Time Associated Diagnosis Comments POCT GLUCOSE - RAMOS DOCKED DEVICE Routine 05/19/2016 9:05 PM BLISTER PACK OPERATOR documented in this encounter Results * (ABNORMAL) POCT glucose (05/19/2016 9:05 PM BLISTER PACK OPERATOR) GLUCOSE POC 142(H) 70 - 109 05/19/2016 10:46 PM BLISTER PACK OPERATOR [facility] LAB ORDERS INTERFACE WHOLE BLOOD SPECIMEN / Unknown 05/19/2016 9:05 PM BLISTER PACK OPERATOR 05/19/2016 10:46 PM BLISTER PACK OPERATOR us Generic Conversion Md OSMAN POCT ORDERABLES - DEVIC E Final Result [facility] LAB ORDERS INTERFACE US documented in this encounter Visit Diagnoses Not on filedocumented in this encounter Additional Health Concerns Infection Onset Date Last Indicated Resolved Time MRSA Comment:Negative MRSA 05/201903/11/2017 03/11/2017 10/03/2019 10:08 AM CDT documented as of this encounter Care Teams Behavioral Pediatrician Relationship Specialty Start Date End Date Vernon Mercedes MD [address] [place] [phone] PCP - General FAMILY PRACTICE 10/27/15 12/02/21 [place] [address] CARDIOVASCULAR DISEASE 10/27/15 10/24/18 [place] [address] [place] Drop Tester CARDIOVASCULAR DISEASE 08/19/16 documented as of this encounter
--- OUTSIDE RECORDS SUMMARY | 2024-04-23 05:22 | XMS_ITS | Encounter Summary ---
Author Organization [facility] Address [address] [place] [address]. [place], [place] [address] [place] [address] Care Team Providers Care Cobbler Sole Name Role Phone Vernon Mercedes MD Primary Care Provider [phone] Stanislaw Rhodes MD Unavailable Unavailab le Reason for Visit * Reason Onset Date Comments Appointment Request 02/19/2016 Encounter Details Date Type Department Care Team (Late st Contact Info) Description 02/19/2016 Telephone [facility] [address] [place] [address] Evaristo Allan MD Appointment Request [...] RCW for AF, pt recently moved to [place], placed [facility] 03/04 at 3 PM. Demographics updated , letter sent documented in this encounter Plan of Treatment Upcoming Encounters Date Type Department Care Team (Late st Contact Info) Description 04/25/2024 11:00 AM SOFTWARE QUALITY SPECIALIST Appointment [facility] [address] [place] [address] Ti Bonilla MD [address] [place] [phone] 05/23/2024 3:30 PM SOFTWARE QUALITY SPECIALIST Office Visit [facility] [address] [place] [address] Jyoti Escobar MD [address] [place] [address] documented as of this encounter Visit Diagnoses Not on filedocumented in this encounter Care Teams Cobbler Sole Relationship Specialty Start Date End Date Vernon Mercedes MD [address] [place] [address] PCP - General FAMILY PRACTICE 10/27/15 12/02/21 Stanislaw Rhodes MD [address] [place] [address] CARDIOVASCULAR DISEASE 10/27/15 10/24/18 documented as of this encounter
--- OUTSIDE RECORDS SUMMARY | 2024-04-23 05:22 | XMS_ITS | Encounter Summary ---
Author Organization [facility] Address [address] [place] [address]. 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 Atenolol TABS; Therapy: (Recorded:14Yja6390) to Recorded 3. Atorvastatin Calcium 40 MG Oral Tablet; Therapy: 26Jun2014 to Recorded 4. HumaLOG 100 UNIT/ML Subcutaneous Solution; Therapy: 91Oqq3355 to Recorded 5. Hydrocodone-Acetaminophen 5-325 MG Oral Tablet; Therapy: 19Jun2014 to Recorded 6. Hydrocodone-Acetaminophen 7.5-325 MG Oral Tablet ([place]); 1 q 6 hrs prn pain; Therapy: 56Vtr6158 to (Last Rx:21Jan2015) Ordered 7. Hydrocodone-Acetaminophen 7.5-325 MG Oral Tablet; TAKE 1 TABLET EVERY 6 HOURS NEEDED; Therapy: 54Hro9463 to (Evaluate:29Jan2015); Last Rx:[id number] Ordered 8. Levemir 100 UNIT/ML Subcutaneous Solution; Therapy: (Recorded:38Xlf2872) to Recorded 9. MetFORMIN HCl TABS; Therapy: (Recorded:49Tkz8622) to Recorded 10. MethylPREDNISolone 4 MG Oral Tablet Therapy Pack (Medrol); as directed; Therapy: 30Xxs9067 to (Last Rx:04Whv5024) Requested for: 28Pqn7761 Ordered 11. Naprosyn TABS (Naproxen); Therapy: (Recorded:45Mhu5230) to Recorded 12. Oxybutynin Chloride 5 MG Oral Tablet; Therapy: 21Jun2014 to Recorded 13. RaNITidine HCl TABS; Therapy: (Recorded:56Swf5884) to Recorded 14. Sure Comfort Insulin Syringe 31G X 5/16 0.3 ML Miscellaneous; Therapy: (Recorded:09Mar2016) to Recorded 15. Sure Comfort Insulin Syringe 31G X 5/16 0.3 ML Miscellaneous; Therapy: 15Oct2013 to Recorded 16. Sure Comfort Insulin Syringe 31G X 5/16 1 ML Miscellaneous; Therapy: 02Jul2014 to Recorded 17. Tamsulosin HCl - 0.4 MG Oral Capsule; Therapy: (Recorded:23Jxm7263) to Recorded 18. TraMADol HCl TABS; Therapy: (Recorded:79Ood5250) to Recorded 19. TRUEplus Lancets 28G Miscellaneous; Therapy: 03Bov8944 to Recorded Allergies 1. Tetracyclines Physical Exam [...] Danny Steiner M.D.; Mar 09 2016 12:03PM PLUNGER MACHINE OPERATOR (Author) Electronically signed by : Danny Steiner M.D.; Oct 27 2016 4:07PM PLUNGER MACHINE OPERATOR (Author) documented in this encounter Plan of Treatment Upcoming Encounters Date Type Department Care Team (Late st Contact Info) Description 04/25/2024 11:00 AM PLUNGER MACHINE OPERATOR Appointment [facility] [address] [place] [address] [place] [address] Ti Bonilla MD [address] [place] [phone] 05/23/2024 3:30 PM PLUNGER MACHINE OPERATOR Office Visit [facility] [address] [place] [address] [place] [address] Jyoti Escobar MD [address] [place] [phone] documented as of this encounter Procedures Procedure Name Priority Date/Time Associated Diagnosis Comments SURG XR KNEE LT 1-2V Routine 03/09/2016 1:06 PM PLUNGER MACHINE OPERATOR XR KNEE STAND AP VANITA ONLY Routine 03/09/2016 1:06 PM PLUNGER MACHINE OPERATOR documented in this encounter Results * SURG XR KNEE LT 1-2V (03/09/2016 1:06 PM PLUNGER MACHINE OPERATOR) Anatomical Region Laterality Modality Knee IMAGES ONLY 03/09/2016 1:06 PM PLUNGER MACHINE OPERATOR 03/09/2016 1:06 PM PLUNGER MACHINE OPERATOR Narrative 03/09/2016 1:11 PM PLUNGER MACHINE OPERATOR [facility] ?? [address] [place] [address] ?? [place], [place] ? Patient Name: ELZA MCKEON Date of : 1960 ?? Med Rec #: [id number] ??Age/Sex: 56/M ?Pt. Location: ORTHO ?? Attending Provider: DANNY STEINER MD (TRACY) ?? Ordering Provider: DANNY STEINER MD (TRACY) ? Study Date Order Number Procedure ?? 03/09/16 [id number] XR Knee Standing Bi ? Signed ? [...] Procedure Note Stephani Luz MD - 02/10/[address] Patient Name: ELZA MCKEON Date of : 1960 Med Rec #: [id number] Age/Sex: 56/M Pt. Location: ORTHO Attending Provider: DANNY STEINER MD (TRACY) Ordering Provider: DANNY STEINER MD (TRACY) Study Date Order Number Procedure 03/09/16 [id number] XR Knee Standing Bi Signed Examination: Bilateral [...] STAND AP VANITA ONLY (03/09/2016 1:06 PM PLUNGER MACHINE OPERATOR) Anatomical Region Laterality Modality Knee Radiographic Shannan ging 03/09/2016 1:06 PM PLUNGER MACHINE OPERATOR 03/09/2016 1:06 PM PLUNGER MACHINE OPERATOR Narrative 03/09/2016 1:11 PM PLUNGER MACHINE OPERATOR [facility] ?? [address] ?? [place], [place] ? Patient Name: ELZA MCKEON Date of : 1960 ?? Med Rec #: [id number] ??Age/Sex: 56/M ?Pt. Location: ORTHO ?? Attending Provider: DANNY STEINER MD (TRACY) ?? Ordering Provider: DANNY STEINER MD (TRACY) ? Study Date Order Number Procedure ?? 03/09/16 [id number] XR Knee Standing Bi ? Signed ? [...] Procedure Note Stephani Luz MD - 02/10/[address] Patient Name: ELZA MCKEON Date of : 1960 Med Rec #: [id number] Age/Sex: 56/M Pt. Location: ORTHO Attending Provider: DANNY STEINER MD (TRACY) Ordering Provider: DANNY STEINER MD (TRACY) Study Date Order Number Procedure 03/09/16 [id number] XR Knee Standing Bi Signed Examination: Bilateral [...] as of this encounter Care Teams Store Stock Help Relationship Specialty Start Date End Date Vernon Mercedes [place] [address] PCP - General FAMILY PRACTICE 10/27/15 12/02/21 Stanislaw Rhodes MD [address] [place] [address] CARDIOVASCULAR DISEASE 10/27/15 10/24/18 Elza Allan MD [address] [place] [phone] [employer] Keyholder CARDIOVASCULAR DISEASE 08/19/16 Raul Santana MD [address] [place] [phone] CLINICAL CARDIAC ELECTROPHYSIOLOGY 06/16/17 Myah Handley ADDICTION SOCIAL WORKER [address] [place] [address] [place] [address] CARDIOVASCULAR DISEASE 06/16/17 07/10/19 documented as of this encounter
--- OUTSIDE RECORDS SUMMARY | 2024-04-23 05:23 | XMS_ITS | Encounter Summary ---
Author Organization [facility] Address [address] [place] [address]. [place] [address] [place] [address] Care Team Providers Care Package Lift Operator Name Role Phone Vernon Mercedes MD Primary Care Provider Stanislaw Rhodes MD Unavailable Unavailab Evaristo Ying MD Unavailable UnavailRaul Suresh MD Unavailable UnavailMyah Elena NP Unavailable Unavailable Deven Cleary MD Unavailable Unavailable Encounter Details Date Type Department Care Team (Late Contact Info) Description 08/03/2013 Abstract [facility] [address] [place] [address] Bettye Coyle MD [address] [place] [address] Social History Tobacco Use Types [...] (Late Contact Info) Description 04/25/2024 11:00 AM LOAN TELLER Appointment [facility] [address] [facility] [place] [address] Ti Bonilla MD [address] [place] [phone] 05/23/2024 3:30 PM LOAN TELLER Office Visit [facility] [address] [place] [address] Jyoti Escobar MD [address] [place] [address] documented as of this encounter Visit Diagnoses Not on filedocumented in this encounter Additional Health Concerns Infection Onset Date Last Indicated Resolved Time MRSA Comment:Negative MRSA 05/201903/11/2017 03/11/2017 10/03/2019 10:08 AM CDT documented as of this encounter Care Teams Package Lift Operator Relationship Specialty Start Date End Date [place] [address] PCP - General FAMILY PRACTICE 10/27/15 12/02/21 [place] [address] CARDIOVASCULAR DISEASE 10/27/15 10/24/18 [place] [address] [place] Cloth Hauler CARDIOVASCULAR DISEASE 08/19/16 [place] [address] CLINICAL CARDIAC ELECTROPHYSIOLOGY 06/16/17 Myah Handley [place] [address] CARDIOVASCULAR DISEASE 06/16/17 07/10/19 [place] [address] Camp Dining Room Attendant INTERVENTIONAL CARDIOLOGY 03/21/18 10/24/18 documented as of this encounter
--- OUTSIDE RECORDS SUMMARY | 2024-04-23 05:23 | XMS_ITS | Encounter Summary ---
Author Organization [facility] Address [address] [place] [address]. [place], [place] [address] [place] [address] Care Team Providers Care Head Charger Name Role Phone Vernon Mercedes MD Primary Care Provider [phone] Stanislaw Rhodes MD Unavailable Unavailab Evaristo Ying MD Unavailable UnavailRaul Suresh MD Unavailable UnavailMyah Elena NP Unavailable Unavailable Deven Cleary MD Unavailable Unavailable Encounter Details Date Type Department Care Team (Late st Contact Info) Description 05/07/2010 Abstract [facility] [address] [place] [address] Vernon Mercedes MD [address] [place] [phone] Social History Tobacco Use Types Packs/Day Years [...] Contact Info) Description 04/25/2024 11:00 AM JUNIOR BOOKKEEPER Appointment [facility] [address] [place] [address] Ti Bonilla MD [address] [place] [phone] 05/23/2024 3:30 PM JUNIOR BOOKKEEPER [facility] [address] [place] [address] Jyoti Escobar MD [address] [place] [address] documented as of this encounter Visit Diagnoses Diagnosis Pain in joint, hand documented in this encounter Additional Health Concerns Infection Onset Date Last Indicated Resolved Time MRSA Comment:Negative MRSA 05/201903/11/2017 03/11/2017 10/03/2019 10:08 AM CDT documented as of this encounter Care Teams Head Charger Relationship Specialty Start Date End Date Vernon Mercedes MD [address] [place] [address] PCP - General FAMILY PRACTICE 10/27/15 12/02/21 [place] [address] CARDIOVASCULAR DISEASE 10/27/15 10/24/18 [place] [address] [place] Field Support Representative CARDIOVASCULAR DISEASE 08/19/16 [place] [address] CLINICAL CARDIAC ELECTROPHYSIOLOGY 06/16/17 Myah Handley, BIOLOGICAL [place] [address] CARDIOVASCULAR DISEASE 06/16/17 07/10/19 [place] [address] Customs Compliance Manager INTERVENTIONAL CARDIOLOGY 03/21/18 10/24/18 documented as of this encounter
--- OUTSIDE RECORDS SUMMARY | 2024-04-23 05:23 | XMS_ITS | Encounter Summary ---
Author Organization [facility] Address [address] [place] [address]. [place], [place] [address] [place] [address] Care Team Providers Care Shank Turner Name Role Phone Vernon Mercedes MD Primary Care Provider [phone] Stanislaw Rhodes MD Unavailable Unavailab Evaristo Ying MD Unavailable Unavailabl e Encounter Details Date Type Department Care Team (Late st Contact Info) Description 06/02/2010 Abstract [facility] [address] [place] [address] Vernon Mercedes MD [address] [place] [address] Social History Tobacco Use Types Packs/Day [...] st Contact Info) Description 04/25/2024 11:00 AM MINI LAB OPERATOR Appointment [facility] [address] [place] [address] Ti Bonilla MD [address] [place] [phone] 05/23/2024 3:30 PM MINI LAB OPERATOR Office Visit [facility] [address] [place] [address] Jyoti Escobar MD [address] [place] [address] documented as of this encounter Visit Diagnoses Diagnosis Examination Unspecified examination documented in this encounter Additional Health Concerns Infection Onset Date Last Indicated Resolved Time MRSA Comment:Negative MRSA 05/201903/11/2017 03/11/2017 10/03/2019 10:08 AM CDT documented as of this encounter Care Teams Shank Turner Relationship Specialty Start Date End Date Vernon Mercedes MD [address] [place] [address] PCP - General FAMILY PRACTICE 10/27/15 12/02/21 Stanislaw Rhodes MD [address] [place] [address] CARDIOVASCULAR DISEASE 10/27/15 10/24/18 Evaristo Allan MD [address] [place] [address] [employer] Aircraft Engine Dismantler CARDIOVASCULAR DISEASE 08/19/16 documented as of this encounter
--- OUTSIDE RECORDS SUMMARY | 2024-04-23 05:23 | XMS_ITS | Encounter Summary ---
Author Organization [facility] Address [address] [place] [address]. [place] [address] [place] [address] Care Team Providers Care Livestock Farm Manager Name Role Phone Vernon Mercedes MD Primary Care Provider Stanislaw Rhodes MD Unavailable Unavailab Evaristo Ying MD Unavailable UnavailRaul Suresh MD Unavailable UnavailMyah Elena NP Unavailable Unavailable Deven Cleary MD Unavailable Unavailable Encounter Details Date Type Department Care Team (Late Contact Info) Description 08/25/2011 Abstract [facility] [address] [place] [address] Bettye Coyle MD [address] [place] [address] Social History Tobacco Use Types [...] (Late Contact Info) Description 04/25/2024 11:00 AM WELDING ROD COATER Appointment [facility] [address] [facility] [place] [address] Ti Bonilla MD [address] [place] [phone] 05/23/2024 3:30 PM WELDING ROD COATER Office Visit [facility] [address] [place] [address] Jyoti Escobar MD [address] [place] [address] documented as of this encounter Visit Diagnoses Diagnosis Pain in joint, ankle and foot documented in this encounter Additional Health Concerns Infection Onset Date Last Indicated Resolved Time MRSA Comment:Negative MRSA 05/201903/11/2017 03/11/2017 10/03/2019 10:08 AM CDT documented as of this encounter Care Teams Livestock Farm Manager Relationship Specialty Start Date End Date Vernon Mercedes MD [address] [place] [address] PCP - General FAMILY PRACTICE 10/27/15 12/02/21 [place] [address] CARDIOVASCULAR DISEASE 10/27/15 10/24/18 [place] [address] [place] Civil Attorney CARDIOVASCULAR DISEASE 08/19/16 [place] [address] CLINICAL CARDIAC ELECTROPHYSIOLOGY 06/16/17 Myah Handley BUSINESS [place] [address] CARDIOVASCULAR DISEASE 06/16/17 07/10/19 [place] [address] Supervisor Pairing And Inspecting INTERVENTIONAL CARDIOLOGY 03/21/18 10/24/18 documented as of this encounter
--- OUTSIDE RECORDS SUMMARY | 2024-04-23 05:23 | XMS_ITS | Encounter Summary ---
Author Organization [facility] Address [address] [place] [address]. [place], [place] [address] [place] [address] Care Team Providers Care Manager Wastewater Name Role Phone Vernon Mercedes MD Primary Care Provider [phone] Stanislaw Rhodes MD Unavailable Unavailab Elza Ying MD Unavailable Unavailabl Ralu Duran MD Unavailable Unavailabl Myah Gee NP Unavailable Unavailable Encounter Details Date Type Department Care Team (Latest Contact Info) Description 07/24/2014 Abstract [facility] Danny Steiner MD [address] [place] [address] Social History Tobacco Use Types Packs/Day [...] Info) Description 04/25/2024 11:00 AM HIGH SCHOOL SCIENCE TEACHER Appointment [facility] [place] [address] Ti Bonilla MD [address] [place] [phone] 05/23/2024 3:30 PM HIGH SCHOOL SCIENCE TEACHER Office Visit [facility] [address] [place] [phone] Jyoti Escobar MD [address] [place] [address] documented as of this encounter Procedures Procedure Name Priority Date/Time Associated Diagnosis Comments MRI KNEE LT WO CON Routine 07/24/2014 9: 04 AM CDT documented in this encounter Results * MRI KNEE LT WO CON (07/24/2014 9:04 AM CDT) Anatomical Region Laterality Modality Knee Magnetic Resonan ce 07/24/2014 9:04 AM CDT 07/24/2014 9:04 AM CDT Narrative 07/24/2014 9:25 AM CDT [facility] ?? [address] [place] [address] ?? [place], [place] ? Patient Name: ELZA MCKEON Date of : 1960 ?? Med Rec #: [id number] ??Age/Sex: 54/M ?Pt. Location: MRI ?? Attending Provider: DANNY STEINER MD (TRACY) ?? Ordering Provider: DANNY STEINER MD (TRACY) ? Study Date Order Number Procedure ?? 07/24/14 [id number] MRI Knee WO Lt ? Signed ? [...] Procedure Note Stephani Luz MD - 02/09/[address] Patient Name: ELZA MCKEON Date of : 1960 Med Rec #: [id number] Age/Sex: 54/M Pt. Location: MRI Attending Provider: DANNY STEINER MD (TRACY) Ordering Provider: DANNY TSEINER MD (TRACY) Study Date Order Number Procedure 07/24/14 [id number] MRI Knee WO Lt Signed Exam: MRI [...] as of this encounter Care Teams Manager Wastewater Relationship Specialty Start Date End Date Vernon Mercedes MD [address] [place] [address] PCP - General FAMILY PRACTICE 10/27/15 12/02/21 Stanis[place] [place] [address] CARDIOVASCULAR DISEASE 10/27/15 10/24/18 El[place] [address] [address] [place] Materials Research Engineer CARDIOVASCULAR DISEASE 08/19/16 Raul [place] [address] CLINICAL CARDIAC ELECTROPHYSIOLOGY 06/16/17 [place] [address] [address] CARDIOVASCULAR DISEASE 06/16/17 07/10/19 documented as of this encounter
--- OUTSIDE RECORDS SUMMARY | 2024-04-23 05:23 | XMS_ITS | Encounter Summary ---
Author Organization [facility] Address [address] [place] [address]. [place], [place] [address] [place] [address] Care Team Providers Care Middle School Science Teacher Name Role Phone Vernon Mercedes MD Primary Care Provider [phone] Stanislaw Rhodes MD Unavailable Unavailab Evaristo Ying MD Unavailable UnavailRaul Suresh MD Unavailable UnavailMyah Elena NP Unavailable Unavailable Deven Cleary MD Unavailable Unavailable Encounter Details Date Type Department Care Team (Late Contact Info) Description 07/17/2014 Abstract [facility] [address] [place] [address] Danny Blackwell MD [address] [place], [place] [phone] Social History Tobacco Use Types Packs/Day Years [...] (Late Contact Info) Description 04/25/2024 11:00 AM SAND MIXER OPERATOR Appointment [facility] [address] [facility] [place] [address] Ti Bonilla MD [address] [place] [phone] 05/23/2024 3:30 PM SAND MIXER OPERATOR [facility] [address] [place] [address] Jyoti Escobar MD [address] [place] [address] documented as of this encounter Visit Diagnoses Diagnosis Pain in joint, lower leg documented in this encounter Additional Health Concerns Infection Onset Date Last Indicated Resolved Time MRSA Comment:Negative MRSA 05/201903/11/2017 03/11/2017 10/03/2019 10:08 AM CDT documented as of this encounter Care Teams Middle School Science Teacher Relationship Specialty Start Date End Date Vernon Mercedes MD [address] [place] [address] PCP - General FAMILY PRACTICE 10/27/15 12/02/21 [place] [address] CARDIOVASCULAR DISEASE 10/27/15 10/24/18 [place] [address] [place]a Ticket Dispatcher CARDIOVASCULAR DISEASE 08/19/16 [place] [address] CLINICAL CARDIAC ELECTROPHYSIOLOGY 06/16/17 Myah Handley, [place] [address] CARDIOVASCULAR DISEASE 06/16/17 07/10/19 [place] [address] [place] Current Inspector INTERVENTIONAL CARDIOLOGY 03/21/18 10/24/18 documented as of this encounter
--- OUTSIDE RECORDS SUMMARY | 2024-04-23 05:23 | XMS_ITS | Encounter Summary ---
Author Organization [facility] Address [address] [place] [address]. [place] [address] Care Team Providers Care Laborer Turkey Farm Name Role Phone Vernon Mercedes MD Primary Care Provider [phone] Stanislaw Rhodes MD Unavailable Unavailab Evaristo Ying MD Unavailable UnavailRaul Suresh MD Unavailable Unavailabl Myah Gee NP Unavailable Unavailable Encounter Details Date Type Department Care Team (Late st Contact Info) Description 07/31/2014 Abstract [facility] [address] [place] [address] Danny Blackwell MD [address] [place], [place] [phone] Social History Tobacco Use Types Packs/Day Years [...] activity that limits his daily activities. PREVIOUS [id number] Patient presents to clinic today with complaints [...] Amoxicillin-Pot Clavulanate 875-125 MG Oral Tablet; Therapy: 35Lde2156 to Recorded 2. Atenolol TABS; Therapy: (Recorded:45Oxc0303) to Recorded 3. Atorvastatin Calcium 40 MG Oral Tablet; Therapy: 26Jun2014 to Recorded 4. HumaLOG 100 UNIT/ML Subcutaneous Solution; Therapy: 88Fxu9169 to Recorded 5. Hydrocodone-Acetaminophen 5-325 MG Oral Tablet; Therapy: 19Jun2014 to Recorded 6. Hydrocodone-Acetaminophen 7.5-325 MG Oral Tablet; Therapy: 99Hdr8416 to Recorded 7. Levemir 100 UNIT/ML Subcutaneous Solution; Therapy: (Recorded:12Aae3987) to Recorded 8. MetFORMIN HCl TABS; Therapy: (Recorded:47Kwy5262) to Recorded 9. Naprosyn TABS (Naproxen); Therapy: (Recorded:58Orw2296) to Recorded 10. Oxybutynin Chloride 5 MG Oral Tablet; Therapy: 21Jun2014 to Recorded 11. Ranitidine HCl TABS; Therapy: (Recorded:09Nev7710) to Recorded 12. Sure Comfort Insulin Syringe 31G X 5/16 0.3 ML Miscellaneous; Therapy: 15Oct2013 to Recorded 13. Sure Comfort Insulin Syringe 31G X 5/16 1 ML Miscellaneous; Therapy: 02Jul2014 to Recorded 14. Tamsulosin HCl - 0.4 MG Oral Capsule; Therapy: (Recorded:89Ymi3666) to Recorded 15. TraMADol HCl TABS; Therapy: (Recorded:94Rlq9243) to Recorded 16. TRUEplus Lancets 28G Miscellaneous; Therapy: 03Dud4518 to Recorded Allergies 1. Tetracyclines Physical Exam [...] Danny Blackwell M.D.; Jul 31 2014 4:37PM WIRE REPAIRER (Author) documented in this encounter Plan of Treatment Upcoming Encounters Date Type Department Care Team (Late st Contact Info) Description 04/25/2024 11:00 AM WIRE REPAIRER Appointment [facility] [address] [place] [address] Ti Bonilla MD [address] [place] [phone] 05/23/2024 3:30 PM WIRE REPAIRER Office Visit [facility] [address] [place] [address] Jyoti Escobar MD [address] [place] [phone] documented as of this encounter Visit Diagnoses Not on filedocumented in this encounter Additional Health Concerns Infection Onset Date Last Indicated Resolved Time MRSA Comment:Negative MRSA 05/201903/11/2017 03/11/2017 10/03/2019 10:08 AM CDT documented as of this encounter Care Teams Laborer Turkey Farm Relationship Specialty Start Date End Date Vernon Mercedes MD [address] [place] [address] PCP - General FAMILY PRACTICE 10/27/15 12/02/21 [place] [address] CARDIOVASCULAR DISEASE 10/27/15 10/24/18 [place] [address] [place] Forepart Rasper CARDIOVASCULAR DISEASE 08/19/16 [place] [address] CLINICAL CARDIAC ELECTROPHYSIOLOGY 06/16/17 Myah Handley, PRESCHOOL ASSISTANT [address] [place] [address] CARDIOVASCULAR DISEASE 06/16/17 07/10/19 documented as of this encounter
--- OUTSIDE RECORDS SUMMARY | 2024-04-23 05:23 | XMS_ITS | Encounter Summary ---
Author Organization [facility] Address [address] [place] [address]. [place], [place] [address] [place] [address] Care Team Providers Care Javascript Engineer Name Role Phone Vernon Mercedes MD Primary Care Provider [phone] Stanislaw Rhodes MD Unavailable Unavailab Evaristo Ying MD Unavailable UnavailRaul Suresh MD Unavailable UnavailMyah Elena NP Unavailable Unavailable Deven Cleary MD Unavailable Unavailable Encounter Details Date Type Department Care Team (Late st Contact Info) Description 06/16/[address] [facility] [address] [place] [address] Vernon Mercedes MD [address] [place] [address] Social History Tobacco Use Types Packs/Day Years [...] st Contact Info) Description 04/25/2024 11:00 AM DIESEL POWERPLANT SUPERVISOR Appointment [facility] [address] [place] [address] Ti Bonilla MD [address] [place] [phone] 05/23/2024 3:30 PM DIESEL POWERPLANT SUPERVISOR [facility] [address] [place] [address] Jyoti Escobar MD [address] [place] [address] documented as of this encounter Visit Diagnoses Diagnosis Essential hypertension Unspecified essential hypertension documented in this encounter Additional Health Concerns Infection Onset Date Last Indicated Resolved Time MRSA Comment:Negative MRSA 05/201903/11/2017 03/11/2017 10/03/2019 10:08 AM CDT documented as of this encounter Care Teams Javascript Engineer Relationship Specialty Start Date End Date Vernon Mercedes MD [address] [place] [address] PCP - General FAMILY PRACTICE 10/27/15 12/02/21 [place] [address] CARDIOVASCULAR DISEASE 10/27/15 10/24/18 [place] [address] [employer] Smoking Pipe Liner CARDIOVASCULAR DISEASE 08/19/16 [place] [address] CLINICAL CARDIAC ELECTROPHYSIOLOGY 06/16/17 Myah Handley, [place] [address] CARDIOVASCULAR DISEASE 06/16/17 07/10/19 [place] [address] Business Services Coordinator INTERVENTIONAL CARDIOLOGY 03/21/18 10/24/18 documented as of this encounter
--- OUTSIDE RECORDS SUMMARY | 2024-04-23 05:23 | XMS_ITS | Encounter Summary ---
Author Organization [facility] Address [address] [place] [address]. [place] [address] [place] [address] Care Team Providers Care Retail Operations Specialist Name Role Phone Vernon Mercedes MD Primary Care Provider [phone] Stanislaw Rhodes MD Unavailable Unavailab Evaristo Ying MD Unavailable UnavailRaul Suresh MD Unavailable UnavailMyah Elena NP Unavailable Unavailable Deven Cleary MD Unavailable Unavailable Encounter Details Date Type Department Care Team (Late Contact Info) Description 07/14/2012 Abstract [facility] [address] [place] [address] Bettye Coyle MD [address] [place] [address] Social History Tobacco Use Types [...] (Late Contact Info) Description 04/25/2024 11:00 AM DRILLING FLUIDS SPECIALIST Appointment [facility] [address] [place] [address] Ti Bonilla MD [address] [place] [phone] 05/23/2024 3:30 PM DRILLING FLUIDS SPECIALIST Office Visit [facility] [address] [place] [address] Jyoti Escobar MD [address] [place] [address] documented as of this encounter Visit Diagnoses Diagnosis Pain in joint, lower leg documented in this encounter Additional Health Concerns Infection Onset Date Last Indicated Resolved Time MRSA Comment:Negative MRSA 05/201903/11/2017 03/11/2017 10/03/2019 10:08 AM CDT documented as of this encounter Care Teams Retail Operations Specialist Relationship Specialty Start Date End Date Vernon Mercedes MD [address] [place] [address] PCP - General FAMILY PRACTICE 10/27/15 12/02/21 [place] [address] CARDIOVASCULAR DISEASE 10/27/15 10/24/18 [place] [address] [employer] CARDIOVASCULAR DISEASE 08/19/16 [place] [address] CLINICAL CARDIAC ELECTROPHYSIOLOGY 06/16/17 Myah Handley [employer] [place]BINATION [place] [address] CARDIOVASCULAR DISEASE 06/16/17 07/10/19 [place] [address] Real Time Trader INTERVENTIONAL CARDIOLOGY 03/21/18 10/24/18 documented as of this encounter
--- OUTSIDE RECORDS SUMMARY | 2024-04-23 05:23 | XMS_ITS | Encounter Summary ---
Author Organization [facility] Address [address] [place] [address]. [place], [place] [address] [place] [address] Care Team Providers Care Functional Mental Disability Teacher Name Role Phone Vernon Mercedes MD Primary Care Provider [phone] Stanislaw Rhodes MD Unavailable Unavailab Evaristo Ying MD Unavailable UnavailRaul Suresh MD Unavailable UnavailMyah Elena NP Unavailable Unavailable Deven Cleary MD Unavailable Unavailable Encounter Details Date Type Department Care Team (Late st Contact Info) Description 06/02/[address] [facility] [address] [place] [address] Vernon Mercedes MD [address] [place] [address] Social History Tobacco Use Types Packs/Day Years [...] st Contact Info) Description 04/25/2024 11:[address] [facility] [address] [place] [address] Ti Bonilla MD [address] [place] [phone] 05/23/2024 3:30 PM CARBONIZER [facility] [address] [place] [address] Jyoti Escobar MD [address] [place] [address] documented as of this encounter Visit Diagnoses Diagnosis Special screening for malignant neoplasms, colon documented in this encounter Additional Health Concerns Infection Onset Date Last Indicated Resolved Time MRSA Comment:Negative MRSA 05/201903/11/2017 03/11/2017 10/03/2019 10:08 AM CDT documented as of this encounter Care Teams Functional Mental Disability Teacher Relationship Specialty Start Date End Date Vernon Mercedes MD [address] [place] [address] PCP - General FAMILY PRACTICE 10/27/15 12/02/21 [place] [address] CARDIOVASCULAR DISEASE 10/27/15 10/24/18 [place] [address] [place] [employer] Ski Maker CARDIOVASCULAR DISEASE 08/19/16 [place] [address] CLINICAL CARDIAC ELECTROPHYSIOLOGY 06/16/17 Myah [place] [address] CARDIOVASCULAR DISEASE 06/16/17 07/10/19 [place] [address] Soil Analyst INTERVENTIONAL CARDIOLOGY 03/21/18 10/24/18 documented as of this encounter
--- OUTSIDE RECORDS SUMMARY | 2024-04-23 05:23 | XMS_ITS | Encounter Summary ---
Author Organization [facility] Address [address] [place] [address]. [place], [place] [address] [place] [address] Care Team Providers Care Separator Tender Name Role Phone Vernon Mercedes MD Primary Care Provider [phone] Stanislaw Rhodes MD Unavailable Unavailab Evaristo Ying MD Unavailable UnavailRaul Suresh MD Unavailable UnavailMyah Elena NP Unavailable Unavailable Encounter Details Date Type Department Care Team (Late st Contact Info) Description 03/26/2014 Abstract [facility] [address] [facility] 2nd [place] [address] Mendel Carver DO [address] [place] [address] Social History Tobacco Use Types Packs/Day Years Used Date Smoking Tobacco: Never Assessed Sex and Gender Information Value Date Recorded Sex Assigned at Not on file Legal Sex Male 10:30 AM CDT Gender Identity Not on file Sexual Orientation Not on file documented as of this encounter Last Filed Vital Signs Vital Sign Reading Time Taken Comments Blood Pressure 140/90 03/26/2014 2:10 PM HEEL PACKER Pulse - - Temperature - - Respiratory Rate - - Oxygen Saturation - - Inhaled Oxygen Concentration - - Weight 131.5 kg (290 lb) 03/26/2014 2:10 PM HEEL PACKER Height 177.8 cm (5' 10 ) 03/26/2014 2:10 PM HEEL PACKER Body Mass Index 41.61 03/26/2014 2:10 PM HEEL PACKER documented in this encounter Progress Notes * [...] (Z78.9) Current Meds 1. Atenolol TABS; Therapy: (Recorded:[id number]) to Recorded Dispense: 0 Days ; #: Sufficient TABS; Refill: 0; UNA = N; Record; Last Updated By: Janeen Rodriguez;03/26/2014 2:15:11 PM 2. Levemir 100 UNIT/ML Subcutaneous Solution; Therapy: (Recorded:[id number]) to Recorded Dispense: 0 Days ; #: Sufficient SOLN; Refill: 0; UNA = N; Record; Last Updated By: Janeen Rodriguez;03/26/2014 2:15:12 PM 3. MetFORMIN HCl TABS; Therapy: (Recorded:[id number]) to Recorded Dispense: 0 Days ; #: Sufficient TABS; Refill: 0; UNA = N; Record; Last Updated By: Janeen Rodriguez;03/26/2014 2:15:13 PM 4. Naprosyn TABS; Therapy: (Recorded:[id number]) to Recorded Dispense: 0 Days ; #: Sufficient TABS; Refill: 0; UNA = N; Record; Last Updated By: Janeen Rodriguez;03/26/2014 2:15:14 PM 5. Ranitidine HCl TABS; Therapy: (Recorded:[id number]) to Recorded Dispense: 0 Days ; #: Sufficient TABS; Refill: 0; UNA = N; Record; Last Updated By: Janeen Rodriguez;03/26/2014 2:15:15 PM 6. Tamsulosin HCl - 0.4 MG Oral Capsule; Therapy: (Recorded:[id number]) to Recorded Dispense: 0 Days ; #: Sufficient CAPS; Refill: 0; UNA = N; Record; Last Updated By: Janeen Rodriguez;03/26/2014 2:15:15 PM 7. TraMADol HCl TABS; Therapy: (Recorded:[id number]) to Recorded Dispense: 0 Days ; #: Sufficient TABS; Refill: 0; UNA = N; Record; Last Updated By: Janeen Rodriguez;03/26/2014 2:15:16 PM Allergies 1. Tetracyclines Recorded By: Janeen Rodriguez; 03/26/2014 2:15:17 PM Vitals Vital Signs [Data Includes: Current Encounter] Recorded by : Janeen Rodriguez at [id number] 02:10PM Systolic 140 Diastolic 90 Height 5 [...] he is tentatively scheduled for 04/16/14, at [facility]; Signatures Electronically signed by : Mendel Carver D.O.; Mar 26 2014 2:22PM HEEL PACKER (Author) documented in this encounter Plan of Treatment Upcoming Encounters Date Type Department Care Team (Late st Contact Info) Description 04/25/2024 11:00 AM HEEL PACKER Appointment [facility] [address] [place], [place] [address] Ti Bonilla MD [address] [place] [phone] 05/23/2024 3:30 PM HEEL PACKER Office Visit [facility] [address] [place] [phone] Jyoti Escobar MD [address] [place] [address] documented as of this encounter Visit Diagnoses Not on filedocumented in this encounter Additional Health Concerns Infection Onset Date Last Indicated Resolved Time MRSA Comment:Negative MRSA 05/201903/11/2017 03/11/2017 10/03/2019 10:08 AM CDT documented as of this encounter Care Teams Separator Tender Relationship Specialty Start Date End Date Vernon Mercedes MD [address] [place] [phone] PCP - General FAMILY PRACTICE 10/27/15 12/02/21 Stanislaw Rhodes MD [address] [place] [address] CARDIOVASCULAR DISEASE 10/27/15 10/24/18 Evaristo Allan MD [address] [place] [address] [employer] [employer] Practitioner CARDIOVASCULAR DISEASE 08/19/16 Raul Santana MD [address] [place] [address] CLINICAL CARDIAC ELECTROPHYSIOLOGY 06/16/17 Myah Handley NP [address] [place] [address] CARDIOVASCULAR DISEASE 06/16/17 07/10/19 documented as of this encounter
--- OUTSIDE RECORDS SUMMARY | 2024-04-23 05:23 | XMS_ITS | Encounter Summary ---
Author Organization [facility] Address [address] [place] [address]. [place], [place] [address] [place] [address] Care Team Providers Care Leadership Intern Name Role Phone Vernon Mercedes MD Primary Care Provider [phone] Stanislaw Rhodes MD Unavailable Unavailab Evaristo Ying MD Unavailable UnavailRaul Suresh MD Unavailable UnavailMyah Elena NP Unavailable Unavailable Encounter Details Date Type Department Care Team (Late st Contact Info) Description 08/20/2014 Abstract [facility] [address] [place] [address] Danny Blackwell MD [address] [place], [place] [phone] Social History Tobacco Use Types Packs/Day Years [...] Danny Blackwell M.D.; Aug 20 2014 2:25PM CUTTER OPERATOR HELPER (Author) documented in this encounter Plan of Treatment Upcoming Encounters Date Type Department Care Team (Late st Contact Info) Description 04/25/2024 11:00 AM CUTTER OPERATOR HELPER [facility]ointment [facility] [address] [place] [address] [place] [address] Ti Bonilla MD [address] [place] [phone] 05/23/2024 3:30 PM CUTTER OPERATOR HELPER Office Visit [facility] [address] [place] [address] Jyoti Escobar MD [address] [place] [address] documented as of this encounter Visit Diagnoses Not on filedocumented in this encounter Additional Health Concerns Infection Onset Date Last Indicated Resolved Time MRSA Comment:Negative MRSA 05/201903/11/2017 03/11/2017 10/03/2019 10:08 AM CDT documented as of this encounter Care Teams Leadership Intern Relationship Specialty Start Date End Date Vernon Mercedes MD [address] [place] [address] PCP - General FAMILY PRACTICE 10/27/15 12/02/21 Stanislaw Rhodes MD [address] [place] [address] CARDIOVASCULAR DISEASE 10/27/15 10/24/18 Evaristo Allan MD [address] [place] [address] [place] Para Professional CARDIOVASCULAR DISEASE 08/19/16 Raul Santana MD [address] [place] [address] CLINICAL CARDIAC ELECTROPHYSIOLOGY 06/16/17 Myah Handley STRIP POLISHER [address] [place] [address] CARDIOVASCULAR DISEASE 06/16/17 07/10/19 documented as of this encounter
--- OUTSIDE RECORDS SUMMARY | 2024-04-23 05:23 | XMS_ITS | Encounter Summary ---
Author Organization [facility] Address [address] [place] [address]. [place], [place] [address] [place] [address] Care Team Providers Care Card Punching Machine Operator Name Role Phone Vernon Mercedes MD Primary Care Provider [phone] Stanislaw Rhodes MD Unavailable Unavailab Evaristo Ying MD Unavailable UnavailRaul Suresh MD Unavailable UnavailMyah Elena NP Unavailable Unavailable Deven Cleary MD Unavailable Unavailable Encounter Details Date Type Department Care Team (Late st Contact Info) Description 02/22/2011 Abstract [facility] [address] [place] [address] Vernon Mercedes MD [address] [place] [address] Social History Tobacco Use Types Packs/Day Years [...] st Contact Info) Description 04/25/2024 11:00 AM MILKING MACHINE MECHANIC Appointment [facility] [address] [place] [address] Ti Bonilla MD [address] [place] [phone] 05/23/2024 3:30 PM MILKING MACHINE MECHANIC [facility] [address] [place] [address] Jyoti Escobar MD [address] [place] [address] documented as of this encounter Visit Diagnoses Diagnosis Pain in soft tissues of limb Pain in limb documented in this encounter Additional Health Concerns Infection Onset Date Last Indicated Resolved Time MRSA Comment:Negative MRSA 05/201903/11/2017 03/11/2017 10/03/2019 10:08 AM CDT documented as of this encounter Care Teams Card Punching Machine Operator Relationship Specialty Start Date End Date Vernon Mercedes MD [address] [place] [address] PCP - General FAMILY PRACTICE 10/27/15 12/02/21 [place] [address] CARDIOVASCULAR DISEASE 10/27/15 10/24/18 [place] [address] [place] Forensic Chemist CARDIOVASCULAR DISEASE 08/19/16 [place] [address] CLINICAL CARDIAC ELECTROPHYSIOLOGY 06/16/17 Myah Handley [place] [address] CARDIOVASCULAR DISEASE 06/16/17 07/10/19 [place] [address] Barbecue Cook INTERVENTIONAL CARDIOLOGY 03/21/18 10/24/18 documented as of this encounter
--- OUTSIDE RECORDS SUMMARY | 2024-04-23 05:23 | XMS_ITS | Encounter Summary ---
Author Organization [facility] Address [address] [place] [address]. [place], [place] [address] [place] [address] Care Team Providers Care Financial Consultant Name Role Phone Vernon Mercedes MD Primary Care Provider [phone] Stanislaw Rhodes MD Unavailable Unavailab Evaristo Ying MD Unavailable UnavailRaul Suresh MD Unavailable UnavailMyah Elena NP Unavailable Unavailable Deven Cleary MD Unavailable Unavailable Encounter Details Date Type Department Care Team (Late Contact Info) Description 08/20/2014 Abstract [facility] [address] [place] [address] Danny Blackwell MD [address] [place], [place] [phone] Social History Tobacco Use Types Packs/Day Years [...] (Late Contact Info) Description 04/25/2024 11:00 AM MOSS GATHERER Appointment [facility] [address] [facility] [place] [place] [address] Ti Bonilla MD [address] [place] [phone] 05/23/2024 3:30 PM MOSS GATHERER [facility] [address] [place] [address] Jyoti Escobar MD [address] [place] [address] documented as of this encounter Visit Diagnoses Diagnosis Encounter for other specified aftercare documented in this encounter Additional Health Concerns Infection Onset Date Last Indicated Resolved Time MRSA Comment:Negative MRSA 05/201903/11/2017 03/11/2017 10/03/2019 10:08 AM CDT documented as of this encounter Care Teams Financial Consultant Relationship Specialty Start Date End Date Vernon Mercedes MD [address] [place] [address] PCP - General FAMILY PRACTICE 10/27/15 12/02/21 [place] [address] CARDIOVASCULAR DISEASE 10/27/15 10/24/18 [place] [address] [employer] Dining Room Attendant Cafeteria CARDIOVASCULAR DISEASE 08/19/16 [place] [address] CLINICAL CARDIAC ELECTROPHYSIOLOGY 06/16/17 Myah Handley, TACTICAL/MOBILE [place] [address] CARDIOVASCULAR DISEASE 06/16/17 07/10/19 [place] [address] [employer] Police Sergeant INTERVENTIONAL CARDIOLOGY 03/21/18 10/24/18 documented as of this encounter
--- OUTSIDE RECORDS SUMMARY | 2024-04-23 05:23 | XMS_ITS | Encounter Summary ---
Author Organization [facility] Address [address] [place] [address]. [place], [place] [address] [place] [address] Care Team Providers Care Community Service Patrol Officer Name Role Phone Vernon Mercedes MD Primary Care Provider [phone] Stanislaw Rhodes MD Unavailable Unavailab Evaristo Ying MD Unavailable UnavailRaul Suresh MD Unavailable UnavailMyah Elena NP Unavailable Unavailable Deven Cleary MD Unavailable Unavailable Encounter Details Date Type Department Care Team (Late st Contact Info) Description 03/31/[address] [facility] [address] [place] [address] Vernon Mercedes MD [address] [place] [address] Social History Tobacco Use Types Packs/Day Years [...] (Late Contact Info) Description 04/25/2024 11:00 AM TRANSVERSE ABDOMINAL MUSCLE NURSE Appointment [facility] [address] [place] [address] Ti Bonilla MD [address] [place] [phone] 05/23/2024 3:30 PM TRANSVERSE ABDOMINAL MUSCLE NURSE [facility] [address] [place] [address] Jyoti Escobar MD [address] [place] [address] documented as of this encounter Visit Diagnoses Diagnosis Type 2 or unspecified type diabetes mellitus ([facility]/HCC HHS/HCC) documented in this encounter Additional Health Concerns Infection Onset Date Last Indicated Resolved Time MRSA Comment:Negative MRSA 05/201903/11/2017 03/11/2017 10/03/2019 10:08 AM CDT documented as of this encounter Care Teams Community Service Patrol Officer Relationship Specialty Start Date End Date Vernon Mercedes MD [address] [place] [address] PCP - General FAMILY PRACTICE 10/27/15 12/02/21 [place] [address] CARDIOVASCULAR DISEASE 10/27/15 10/24/18 [place] [address] [place] Director Of Clinical Applications CARDIOVASCULAR DISEASE 08/19/16 [place] [address] CLINICAL CARDIAC ELECTROPHYSIOLOGY 06/16/17 Myah Handley BUSINESS [place]CH[place] [address] CARDIOVASCULAR DISEASE 06/16/17 07/10/19 [place] [address] Medical Claims Representative INTERVENTIONAL CARDIOLOGY 03/21/18 10/24/18 documented as of this encounter
--- OUTSIDE RECORDS SUMMARY | 2024-04-23 05:23 | XMS_ITS | Encounter Summary ---
Author Organization [facility] Address [address] [place] [address]. [place], [place] [address] [place] [address] Care Team Providers Care Car Hopper Name Role Phone Vernon Mercedes MD Primary Care Provider [phone] Stanislaw Rhodes MD Unavailable Unavailab Evaristo Ying MD Unavailable UnavailRaul Suresh MD Unavailable UnavailMyah Elena NP Unavailable Unavailable Deven Cleary MD Unavailable Unavailable Encounter Details Date Type Department Care Team (Late st Contact Info) Description 08/07/[address] [place] [address] [place] [address] Danny Blackwell MD [address] [place] [address] Social History Tobacco Use Types Packs/Day Years [...] (Late Contact Info) Description 04/25/2024 11:00 AM OUTREACH LIAISON Appointment [facility] [address] [place] [address] Ti Bonilla MD [address] [place] [phone] 05/23/2024 3:30 PM OUTREACH LIAISON Office Visit [facility] [address] [place] [address] Jyoti Escobar MD [address] [place] [address] documented as of this encounter Visit Diagnoses Diagnosis Tear of medial cartilage or meniscus of knee, current documented in this encounter Additional Health Concerns Infection Onset Date Last Indicated Resolved Time MRSA Comment:Negative MRSA 05/201903/11/2017 03/11/2017 10/03/2019 10:08 AM CDT documented as of this encounter Care Teams Car Hopper Relationship Specialty Start Date End Date Vernon Mercedes MD [address] [place] [address] PCP - General FAMILY PRACTICE 10/27/15 12/02/21 Stan[place] [address] CARDIOVASCULAR DISEASE 10/27/15 10/24/18 [place] [address] [place] Grade Setter CARDIOVASCULAR DISEASE 08/19/16 [place] [address] CLINICAL CARDIAC ELECTROPHYSIOLOGY 06/16/17 Myah Handley, [place] [address] CARDIOVASCULAR DISEASE 06/16/17 07/10/19 [place] [address] Cooker Soda INTERVENTIONAL CARDIOLOGY 03/21/18 10/24/18 documented as of this encounter
--- OUTSIDE RECORDS SUMMARY | 2024-04-23 05:23 | XMS_ITS | Encounter Summary ---
Author Organization [facility] Address [address] [place] [address]. [place] [address] [place] [address] Care Team Providers Care Leverman Name Role Phone Vernon Mercedes MD Primary Care Provider [phone] Stanislaw Rhodes MD Unavailable Unavailab Evaristo Ying MD Unavailable UnavailRaul Suresh MD Unavailable Unavailabl Myah Gee NP Unavailable Unavailable Encounter Details Date Type Department Care Team (Latest Contact Info) Description 03/07/2014 Abstract [facility] Medical [facility] Social History Tobacco Use [...] st Contact Info) Description 04/25/2024 11:00 AM SERVICE EMPLOYEE Appointment [facility] [place] [address] Ti Bonilla MD [address] [place] [phone] 05/23/2024 3:30 PM SERVICE EMPLOYEE Office Visit [facility] [address] [place] [phone] Jyoti Escobar MD [address] [place] [address] documented as of this encounter Visit Diagnoses Not on filedocumented in this encounter Additional Health Concerns Infection Onset Date Last Indicated Resolved Time MRSA Comment:Negative MRSA 05/201903/11/2017 03/11/2017 10/03/2019 10:08 AM CDT documented as of this encounter Care Teams Leverman Relationship Specialty Start Date End Date Vernon Mercedes MD [address] [place] [address] PCP - General FAMILY PRACTICE 10/27/15 12/02/21 [place] [address] CARDIOVASCULAR DISEASE 10/27/15 10/24/18 Evar[place] [phone] Lynn Superintendent Gas Distribution CARDIOVASCULAR DISEASE 08/19/16 Ra[place] [address] CLINICAL CARDIAC ELECTROPHYSIOLOGY 06/16/17 [place] [address] CARDIOVASCULAR DISEASE 06/16/17 07/10/19 documented as of this encounter
--- OUTSIDE RECORDS SUMMARY | 2024-04-23 05:23 | XMS_ITS | Encounter Summary ---
Author Organization [facility] Address [address] [place] [address]. [place], [place] [address] [place] [address] Care Team Providers Care Car Tester Name Role Phone Vernon Mercedes MD Primary Care Provider [phone] Stanislaw Rhodes MD Unavailable Unavailab Evaristo Ying MD Unavailable UnavailRaul Suresh MD Unavailable Unavailabl Myah Gee NP Unavailable Unavailable Deven Cleary MD Unavailable Unavailable Encounter Details Date Type Department Care Team (Late Contact Info) Description 06/19/2014 Abstract [facility] [address] [place] [address] Social History Tobacco Use Types Packs/Day Years [...] (Late Contact Info) Description 04/25/2024 11:00 AM ONLINE PUBLISHER Appointment [facility] [address] [place] [address] Ti Bonilla MD [address] [place] [phone] 05/23/2024 3:30 PM ONLINE PUBLISHER Office Visit [facility] [address] [place] [phone] Jyoti Escobar MD [address] [place] [address] documented as of this encounter Visit Diagnoses Diagnosis Pain in joint, lower leg documented in this encounter Additional Health Concerns Infection Onset Date Last Indicated Resolved Time MRSA Comment:Negative MRSA 05/201903/11/2017 03/11/2017 10/03/2019 10:08 AM CDT documented as of this encounter Care Teams Car Tester Relationship Specialty Start Date End Date Vernon Mercedes MD [address] [place] [address] PCP - General FAMILY PRACTICE 10/27/15 12/02/21 [place] [address] CARDIOVASCULAR DISEASE 10/27/15 10/24/18 [place] [address] [place] Estate Planner CARDIOVASCULAR DISEASE 08/19/16 [place] [address] CLINICAL CARDIAC ELECTROPHYSIOLOGY 06/16/17 [place] [address] CARDIOVASCULAR DISEASE 06/16/17 07/10/19 [place] [address] Cantilever Crane Operator INTERVENTIONAL CARDIOLOGY 03/21/18 10/24/18 documented as of this encounter
--- OUTSIDE RECORDS SUMMARY | 2024-04-23 05:23 | XMS_ITS | Encounter Summary ---
Author Organization [facility] Address [address] [place] [address]. [place], [place] [address] [place], [place] [phone] Care Team Providers Care Play Therapist Name Role Phone Vernon Mercedes MD Primary Care Provider Stanislaw Rhodes MD Unavailable Unavailab Elza Ying MD Unavailable UnavailRaul Suresh MD Unavailable Unavailabl Myah Gee NP Unavailable Unavailable Encounter Details Date Type Department Care Team (Late st Contact Info) Description 08/07/2014 Abstract [facility] [address] [place] [phone] Danny Steienr MD [address] [place] [address] Social History Tobacco Use Types Packs/Day Years Used Date Smoking Tobacco: Never Assessed Sex and Gender Information Value Date Recorded Sex Assigned at Not on file Legal Sex Male 10:30 AM CDT Gender Identity Not on file Sexual Orientation Not on file documented as of this encounter Procedure Notes * Danny Steiner MD - 08/07/2014 8:15 AM CDT [address] [address] Patient: ELZA MCKEON [facility] Rec#: [id number] Birthdate: 1960 Admit/Svce Date: 08/07/2014 Disch Date: Attending Md: DANNY STEINER MD (TRACY) OPERATIVE REPORT PATIENT: Elza Mckeon : 1960 MR #: [id number] Surgery Date: 08/07/2014 Chart Document DATE: 08/07/2014 [...] then to the PACU in good condition. /[facility] [id number] A A [id number] cc: MD Danny Caballero MD Carl Painter, MD CP/[facility] [id number] E-Signed By A Danny Steiner MD 08/08/2014 07:35 A A [id number] cc: MD Danny Caballero MD Carl Painter, MD documented in this encounter Plan of Treatment Upcoming Encounters Date Type Department Care Team (Late st Contact Info) Description 04/25/2024 11:00 AM HR ASSISTANT Appointment [facility] [place] [address] Ti Bonilla MD [address] [place] [phone] 05/23/2024 3:30 PM HR ASSISTANT Office Visit [facility] [address] [place] [phone] Jyoti Escobar MD [address] [place] [address] documented as of this encounter Visit Diagnoses Not on filedocumented in this encounter Additional Health Concerns Infection Onset Date Last Indicated Resolved Time MRSA Comment:Negative MRSA 05/201903/11/2017 03/11/2017 10/03/2019 10:08 AM CDT documented as of this encounter Care Teams Play Therapist Relationship Specialty Start Date End Date Vernon Mercedes MD [address] [place] [address] PCP - General FAMILY PRACTICE 10/27/15 12/02/21 Stanislaw Rhodes MD [address] [place] [address] CARDIOVASCULAR DISEASE 10/27/15 10/24/18 Elza Allan MD [address] [place] [phone] Pike Supervisor Contact And Service Clerks CARDIOVASCULAR DISEASE 08/19/16 Raul Santana MD [address] [place] [address] CLINICAL CARDIAC ELECTROPHYSIOLOGY 06/16/17 [place] [address] CARDIOVASCULAR DISEASE 06/16/17 07/10/19 documented as of this encounter
--- OUTSIDE RECORDS SUMMARY | 2024-04-23 05:23 | XMS_ITS | Encounter Summary ---
Author Organization [facility] Address [address] [place] [address]. [place] [address] [place] [address] Care Team Providers Care Machine Erector Name Role Phone Vernon Mercedes MD Primary Care Provider [phone] Stanislaw Rhodes MD Unavailable Unavailab Evaristo Ying MD Unavailable Unavailabl Raul Duran MD Unavailable Unavailabl Myah Gee NP Unavailable Unavailable Encounter Details Date Type Department Care Team (Late st Contact Info) Description 04/16/2014 Abstract [facility] [address] [place] [address], 2[address] [place] [address] Mendel Carver, DO [address] [place] [address] Social History Tobacco Use Types Packs/Day Years [...] (Late Contact Info) Description 04/25/2024 11:00 AM GROUND WATER CONTRACTOR Appointment [facility] [address] [place] [address] [place] [address] Ti Bonilla MD [address] [place] [phone] 05/23/2024 3:30 PM GROUND WATER CONTRACTOR [facility] [address] [place] [address] Jyoti Escobar MD [address] [place] [address] documented as of this encounter Visit Diagnoses Not on filedocumented in this encounter Additional Health Concerns Infection Onset Date Last Indicated Resolved Time MRSA Comment:Negative MRSA 05/201903/11/2017 03/11/2017 10/03/2019 10:08 AM CDT documented as of this encounter Care Teams Machine Erector Relationship Specialty Start Date End Date Vernon Mercedes MD [address] [place] [address] PCP - General FAMILY PRACTICE 10/27/15 12/02/21 [place] [address] CARDIOVASCULAR DISEASE 10/27/15 10/24/18 [place] [address] Strandquist Audio Narrator CARDIOVASCULAR DISEASE 08/19/16 [place] [address] CLINICAL CARDIAC ELECTROPHYSIOLOGY 06/16/17 Myah Handley, PHYSICAL THERAPY [place] [address] CARDIOVASCULAR DISEASE 06/16/17 07/10/19 documented as of this encounter
--- OUTSIDE RECORDS SUMMARY | 2024-04-23 05:23 | XMS_ITS | Encounter Summary ---
Author Organization [facility] Address [address] [place] [address]. [place] [address] [place] [address] Care Team Providers Care Scientific Photographer Name Role Phone Vernon Mercedes MD Primary Care Provider [phone] Stanislaw Rhodes MD Unavailable Unavailab Evaristo Ying MD Unavailable UnavailRaul Suresh MD Unavailable UnavailMyah Elena NP Unavailable Unavailable Deven Cleary MD Unavailable Unavailable Encounter Details Date Type Department Care Team (Late Contact Info) Description 03/29/2012 Abstract [facility] [address] [place] [address] Bettye Coyle MD [address] [place] [address] Social History Tobacco Use Types [...] Contact Info) Description 04/25/2024 11:00 AM SUPERVISOR POWER REACTOR Appointment [facility] [address] [facility] [place] [address] Ti Bonilla MD [address] [place] [phone] 05/23/2024 3:30 PM SUPERVISOR POWER REACTOR Office Visit [facility] [address] [place] [address] Jyoti Escobar MD [address] [place] [address] documented as of this encounter Visit Diagnoses Diagnosis Pain in joint, ankle and foot documented in this encounter Additional Health Concerns Infection Onset Date Last Indicated Resolved Time MRSA Comment:Negative MRSA 05/201903/11/2017 03/11/2017 10/03/2019 10:08 AM CDT documented as of this encounter Care Teams Scientific Photographer Relationship Specialty Start Date End Date Vernon Mercedes MD [address] [place] [address] PCP - General FAMILY PRACTICE 10/27/15 12/02/21 [place] [address] CARDIOVASCULAR DISEASE 10/27/15 10/24/18 [place] [address] Clyde Knobber CARDIOVASCULAR DISEASE 08/19/16 [place] [address] CLINICAL CARDIAC ELECTROPHYSIOLOGY 06/16/17 Myah Handley SUPERVISOR [place] [address] CARDIOVASCULAR DISEASE 06/16/17 07/10/19 [place] [address] Butadiene Convertor Operator INTERVENTIONAL CARDIOLOGY 03/21/18 10/24/18 documented as of this encounter
--- OUTSIDE RECORDS SUMMARY | 2024-04-23 05:23 | XMS_ITS | Encounter Summary ---
Author Organization [facility] Address [address] [place] [address]. [place] [address] [place] [address] Care Team Providers Care Rip And Groove Machine Operator Name Role Phone Vernon Mercedes MD Primary Care Provider [phone] Stanislaw Rhodes MD Unavailable Unavailab Evaristo Ying MD Unavailable UnavailRaul Suresh MD Unavailable Unavailabl Myah Gee NP Unavailable Unavailable Encounter Details Date Type Department Care Team (Latest Contact Info) Description 1960 Abstract [facility] Medical Group Social History Tobacco [...] st Contact Info) Description 04/25/2024 11:00 AM GROUNDMAN/LINEMAN Appointment [facility] [place] [address] Ti Bonilla MD [address] [place] [phone] 05/23/2024 3:30 PM GROUNDMAN/LINEMAN Office Visit [facility] [address] [place] [phone] Jyoti Escobar MD [address] [place] [address] documented as of this encounter Visit Diagnoses Not on filedocumented in this encounter Additional Health Concerns Infection Onset Date Last Indicated Resolved Time MRSA Comment:Negative MRSA 05/201903/11/2017 03/11/2017 10/03/2019 10:08 AM CDT documented as of this encounter Care Teams Rip And Groove Machine Operator Relationship Specialty Start Date End Date Vernon Mercedes MD [address] [place] [address] PCP - General FAMILY PRACTICE 10/27/15 12/02/21 Stanislaw [place] [place] [address] CARDIOVASCULAR DISEASE 10/27/15 10/24/18 Evaristo [place] [place] [address] [place] Traffic Clerk CARDIOVASCULAR DISEASE 08/19/16 Raul [place] [address] CLINICAL CARDIAC ELECTROPHYSIOLOGY 06/16/17 Myah Handley, [place] [address] [address] CARDIOVASCULAR DISEASE 06/16/17 07/10/19 documented as of this encounter
--- OUTSIDE RECORDS SUMMARY | 2024-04-23 05:23 | XMS_ITS | Encounter Summary ---
Author Organization [facility] Address [address] [place] [address]. [place] [address] [place] [address] Care Team Providers Care Qa Test Analyst Name Role Phone Vernon Mrecedes MD Primary Care Provider [phone] Stanislaw Rhodes MD Unavailable Unavailab Evaristo Ying MD Unavailable UnavailRaul Suresh MD Unavailable Unavailabl Myah Gee NP Unavailable Unavailable Encounter Details Date Type Department Care Team (Latest Contact Info) Description 07/19/2014 Abstract [facility] Medical Group Social History Tobacco [...] st Contact Info) Description 04/25/2024 11:00 AM SPECIMEN BOSS Appointment [facility] [place] [address] Ti Bonilla MD [address] [place] [phone] 05/23/2024 3:30 PM SPECIMEN BOSS Office Visit [facility] [address] [place] [phone] Jyoti Escobar MD [address] [place] [address] documented as of this encounter Visit Diagnoses Not on filedocumented in this encounter Additional Health Concerns Infection Onset Date Last Indicated Resolved Time MRSA Comment:Negative MRSA 05/201903/11/2017 03/11/2017 10/03/2019 10:08 AM CDT documented as of this encounter Care Teams Qa Test Analyst Relationship Specialty Start Date End Date Vernon Mercedes MD [address] [place] [address] PCP - General FAMILY PRACTICE 10/27/15 12/02/21 Stanislaw [place] [address] CARDIOVASCULAR DISEASE 10/27/15 10/24/18 Evaristo [place] [address] [place] Machine Cell Tuber CARDIOVASCULAR DISEASE 08/19/16 Raul [place] [place] [address] CLINICAL CARDIAC ELECTROPHYSIOLOGY 06/16/17 [place] [place] [address] CARDIOVASCULAR DISEASE 06/16/17 07/10/19 documented as of this encounter
--- OUTSIDE RECORDS SUMMARY | 2024-04-23 05:23 | XMS_ITS | Encounter Summary ---
Author Organization [facility] Address [address] [place] [address]. [place], [place] [address] [place], [place] [phone] Care Team Providers Care Strategic Planning Specialist Name Role Phone Vernon Mercedes MD Primary Care Provider [phone] Stanislaw Rhodes MD Unavailable Unavailab Elza Ying MD Unavailable UnavailRaul Suresh MD Unavailable UnavailMyah Elena NP Unavailable Unavailable Encounter Details Date Type Department Care Team (Late st Contact Info) Description 07/17/2014 Abstract [facility] [address] [place] [address] Danny Steiner MD [address] [place] [address] Social History Tobacco Use Types [...] Amoxicillin-Pot Clavulanate 875-125 MG Oral Tablet; Therapy: [id number] to Recorded 2. Atenolol TABS; Therapy: (Recorded:[id number]) to Recorded 3. Atorvastatin Calcium 40 MG Oral Tablet; Therapy: 26Jun2014 to Recorded 4. HumaLOG 100 UNIT/ML Subcutaneous Solution; Therapy: 36Osu6316 to Recorded 5. Hydrocodone-Acetaminophen 5-325 MG Oral Tablet; Therapy: 19Jun2014 to Recorded 6. Hydrocodone-Acetaminophen 7.5-325 MG Oral Tablet; Therapy: 16Apr2014 to Recorded 7. Levemir 100 UNIT/ML Subcutaneous Solution; Therapy: (Recorded:[id number]) to Recorded 8. MetFORMIN HCl TABS; Therapy: (Recorded:72Xuv2729) to Recorded 9. Naprosyn TABS (Naproxen); Therapy: (Recorded:12Hcl5720) to Recorded 10. Oxybutynin Chloride 5 MG Oral Tablet; Therapy: 21Jun2014 to Recorded 11. Ranitidine HCl TABS; Therapy: (Recorded:02Moa7427) to Recorded 12. Sure Comfort Insulin Syringe 31G X 5/16 0.3 ML Miscellaneous; Therapy: 15Oct2013 to Recorded 13. Sure Comfort Insulin Syringe 31G X 5/16 1 ML Miscellaneous; Therapy: 02Jul2014 to Recorded 14. Tamsulosin HCl - 0.4 MG Oral Capsule; Therapy: (Recorded:[id number]) to Recorded 15. TraMADol HCl TABS; Therapy: (Recorded:67Kqi4389) to Recorded 16. TRUEplus Lancets 28G Miscellaneous; Therapy: 29Whl8798 to Recorded Allergies 1. Tetracyclines Vitals Recorded: [...] Danny Steiner M.D.; Jul 19 2014 12:19PM HIGH DENSITY PRESS OPERATOR (Author) documented in this encounter Plan of Treatment Upcoming Encounters Date Type Department Care Team (Late st Contact Info) Description 04/25/2024 11:00 AM HIGH DENSITY PRESS OPERATOR Appointment [facility] [address] [place] [address] [place] [address] Ti Bonilla MD [address] [place] [phone] 05/23/2024 3:30 PM HIGH DENSITY PRESS OPERATOR Office Visit [facility] [place] [address] Jyoti Escobar MD [address] [place] [phone] documented as of this encounter Procedures Procedure [...] PM CDT Narrative 07/17/2014 3:57 PM CDT [facility] ?? [address] [facility] ?? [place] ? Patient Name: ELZA MCKEON Date of : 1960 ?? Med Rec #: [id number] ??Age/Sex: 54/M ?Pt. Location: ORTHO ?? Attending Provider: DANNY STEINER MD (TRACY) ?? Ordering Provider: DANNY STEINER MD (TRACY) ? Study Date Order Number Procedure ?? 07/17/14 [id number] XR Knee Standing Bi ? Signed ? [...] Procedure Note Stephani Luz MD - 02/10/[address] Patient Name: ELZA MCKEON Date of : 1960 Med Rec #: [id number] Age/Sex: 54/M Pt. Location: ORTHO Attending Provider: DANNY STEINER MD (TRACY) Ordering Provider: DANNY STEINER MD (TRACY) Study Date Order Number Procedure 07/17/14 [id number] XR Knee Standing Bi Signed Examination: Left [...] PM CDT Narrative 07/17/2014 3:57 PM CDT [facility] [place], [place] ? Patient Name: ELZA MCKEON Date of : 1960 ?? Med Rec #: [id number] ??Age/Sex: 54/M ?Pt. Location: ORTHO ?? Attending Provider: DANNY STEINER MD (TRACY) ?? Ordering Provider: DANNY STEINER MD (TRACY) ? Study Date Order Number Procedure ?? 07/17/14 [id number] XR Knee 1 to 2 Views Lt [...] Procedure Note Danny Steiner MD - 02/08/[address] Patient Name: ELZA MCKEON Date of : 1960 Med Rec #: [id number] Age/Sex: 54/M Pt. Location: ORTHO Attending Provider: DANNY STEINER MD (TRACY) Ordering Provider: DANNY STEINER MD (TRACY) Study Date Order Number Procedure 07/17/14 [id number] XR Knee 1 to 2 Views Lt [...] documented as of this encounter Care Teams Strategic Planning Specialist Relationship Specialty Start Date End Date Vernon [place] [place] [phone] PCP - General FAMILY PRACTICE 10/27/15 12/02/21 Stanislaw [place] [address] [place] [address] CARDIOVASCULAR DISEASE 10/27/15 10/24/18 El[place] [address] [address] [place] Bus Repair Supervisor CARDIOVASCULAR DISEASE 08/19/16 Ra[place] [place] [address] CLINICAL CARDIAC ELECTROPHYSIOLOGY 06/16/17 [place] [address] [address] CARDIOVASCULAR DISEASE 06/16/17 07/10/19 documented as of this encounter
--- OUTSIDE RECORDS SUMMARY | 2024-04-23 05:23 | XMS_ITS | Encounter Summary ---
Author Organization [facility] Address [address] [place] [address]. [place], [place] [address] [place] [address] Care Team Providers Care Food Service Utility Worker Name Role Phone Vernon Mercedes MD Primary Care Provider [phone] Stanislaw Rhodes MD Unavailable Unavailab Evaristo Ying MD Unavailable UnavailRaul Suresh MD Unavailable UnavailMyah Elena NP Unavailable Unavailable Deven Cleary MD Unavailable Unavailable Encounter Details Date Type Department Care Team (Late Contact Info) Description 07/31/2014 Abstract [facility] Diagnostic Imaging [address] [place] [address] Danny Blackwell MD [address] [place], [place] [phone] Social History Tobacco Use Types Packs/Day Years [...] (Late Contact Info) Description 04/25/2024 11:00 AM FERN GATHERER Appointment [facility] [address] [facility] [place] [address] Ti Bonilla MD [address] [place] [phone] 05/23/2024 3:30 PM FERN GATHERER [facility] [address] [place] [address] Jyoti Escobar MD [address] [place] [address] documented as of this encounter Visit Diagnoses Diagnosis Other and unspecified derangement of medial meniscus documented in this encounter Additional Health Concerns Infection Onset Date Last Indicated Resolved Time MRSA Comment:Negative MRSA 05/201903/11/2017 03/11/2017 10/03/2019 10:08 AM CDT documented as of this encounter Care Teams Food Service Utility Worker Relationship Specialty Start Date End Date Vernon Mercedes MD [address] [place] [address] PCP - General FAMILY PRACTICE 10/27/15 12/02/21 [place] [address] CARDIOVASCULAR DISEASE 10/27/15 10/24/18 [place] [address] [place] Instructor Adjunct Surgical Technician CARDIOVASCULAR DISEASE 08/19/16 [place] [address] CLINICAL CARDIAC ELECTROPHYSIOLOGY 06/16/17 Myah Handley, COMMERCIAL [place] [address] CARDIOVASCULAR DISEASE 06/16/17 07/10/19 [place] [address] Director Global Sales INTERVENTIONAL CARDIOLOGY 03/21/18 10/24/18 documented as of this encounter
--- OUTSIDE RECORDS SUMMARY | 2024-04-23 05:23 | XMS_ITS | Encounter Summary ---
Author Organization [facility] Address [address] [place] [address]. [place], [place] [address] [place] [address] Care Team Providers Care Epoxy Fabrication Supervisor Name Role Phone Vernon Mercedes MD Primary Care Provider [phone] Stanislaw Rhodes MD Unavailable Unavailab Evaristo Ying MD Unavailable UnavailRaul Suresh MD Unavailable UnavailMyah Elena NP Unavailable Unavailable Encounter Details Date Type Department Care Team (Late st Contact Info) Description 04/30/2014 Abstract [facility] [address] [facility] [place] [address] Mendel Carver DO [address] [place] [address] Social History Tobacco Use Types Packs/Day Years Used Date Smoking Tobacco: Never Assessed Sex and Gender Information Value Date Recorded Sex Assigned at Not on file Legal Sex Male 10:30 AM CDT Gender Identity Not on file Sexual Orientation Not on file documented as of this encounter Last Filed Vital Signs Vital Sign Reading Time Taken Comments Blood Pressure 140/90 04/30/2014 9:51 AM SUPERVISOR TYPE DISK QUALITY CONTROL Pulse - - Temperature - - Respiratory Rate - - Oxygen Saturation - - Inhaled Oxygen Concentration - - Weight 131.5 kg (290 lb) 04/30/2014 9:51 AM SUPERVISOR TYPE DISK QUALITY CONTROL Height 177.8 cm (5' 10 ) 04/30/2014 9:51 AM SUPERVISOR TYPE DISK QUALITY CONTROL Body Mass Index 41.61 04/30/2014 9:51 AM SUPERVISOR TYPE DISK QUALITY CONTROL documented in this encounter Progress Notes * Mendel Carver, DO - 04/30/2014 10:45 AM CST [...] (Z78.9) Current Meds 1. Atenolol TABS; Therapy: (Recorded:[id number]) to Recorded 2. Levemir 100 UNIT/ML Subcutaneous Solution; Therapy: (Recorded:[id number]) to Recorded 3. MetFORMIN HCl TABS; Therapy: (Recorded:[id number]) to Recorded 4. Naprosyn TABS; Therapy: (Recorded:[id number]) to Recorded 5. Ranitidine HCl TABS; Therapy: (Recorded:[id number]) to Recorded 6. Tamsulosin HCl - 0.4 MG Oral Capsule; Therapy: (Recorded:[id number]) to Recorded 7. TraMADol HCl TABS; Therapy: (Recorded:[id number]) to Recorded Allergies 1. Tetracyclines Vitals Vital [...] Mendel Carver D.O.; Apr 30 2014 10:57AM SUPERVISOR TYPE DISK QUALITY CONTROL (Author) documented in this encounter Plan of Treatment Upcoming Encounters Date Type Department Care Team (Late st Contact Info) Description 04/25/2024 11:00 AM SUPERVISOR TYPE DISK QUALITY CONTROL Appointment [facility] [address] [place] [address] Ti Bonilla MD [address] [place] [phone] 05/23/2024 3:30 PM SUPERVISOR TYPE DISK QUALITY CONTROL Office Visit [facility] [address] [place] [address] Jyoti Escobar MD [address] [place] [address] documented as of this encounter Visit Diagnoses Not on filedocumented in this encounter Additional Health Concerns Infection Onset Date Last Indicated Resolved Time MRSA Comment:Negative MRSA 05/201903/11/2017 03/11/2017 10/03/2019 10:08 AM CDT documented as of this encounter Care Teams Epoxy Fabrication Supervisor Relationship Specialty Start Date End Date [place] [place] [phone] PCP - General FAMILY PRACTICE 10/27/15 12/02/21 Stanislaw Rhodes MD [address] [place] [phone] CARDIOVASCULAR DISEASE 10/27/15 10/24/18 Evaristo Allan MD [address] [place] [phone] [facility] Care Transitions Coordinator CARDIOVASCULAR DISEASE 08/19/16 Raul [place] [place] [phone] CLINICAL CARDIAC ELECTROPHYSIOLOGY 06/16/17 Myah Handley DRIER BELT [place] [address] [phone] CARDIOVASCULAR DISEASE 06/16/17 07/10/19 documented as of this encounter
--- OUTSIDE RECORDS SUMMARY | 2024-04-23 05:23 | XMS_ITS | Encounter Summary ---
Author Organization [facility] Address [address] [place] [address]. [place], [place] [address] [place] [address] Care Team Providers Care Heater Room Helper Name Role Phone Vernon Mercedes MD Primary Care Provider [phone] Stanislaw Rhodes MD Unavailable Unavailab Evaristo Ying MD Unavailable UnavailRaul Suresh MD Unavailable UnavailMyah Elena NP Unavailable Unavailable Deven Cleary MD Unavailable Unavailable Encounter Details Date Type Department Care Team (Late st Contact Info) Description 07/24/[address] [facility] [address] [place] [address] Danny Blackwell MD [address] [place] [address] Social History Tobacco Use Types Packs/Day Years [...] (Late Contact Info) Description 04/25/2024 11:00 AM TALENT ACQUISITION COORDINATOR Appointment [facility] [address] [place] [address] Ti Bonilla MD [address] [place] [phone] 05/23/2024 3:30 PM TALENT ACQUISITION COORDINATOR [facility] [address] [place] [address] Jyoti Escobar MD [address] [place] [address] documented as of this encounter Visit Diagnoses Diagnosis Tear of medial cartilage or meniscus of knee, current documented in this encounter Additional Health Concerns Infection Onset Date Last Indicated Resolved Time MRSA Comment:Negative MRSA 05/201903/11/2017 03/11/2017 10/03/2019 10:08 AM CDT documented as of this encounter Care Teams Heater Room Helper Relationship Specialty Start Date End Date Vernon Mercedes MD [address] [place] [address] PCP - General FAMILY PRACTICE 10/27/15 12/02/21 [place] [address] CARDIOVASCULAR DISEASE 10/27/15 10/24/18 [place] [address] [place] [employer] Out Worker CARDIOVASCULAR DISEASE 08/19/16 [place] [address] CLINICAL CARDIAC ELECTROPHYSIOLOGY 06/16/17 Myah Handley, [place] [address] CARDIOVASCULAR DISEASE 06/16/17 07/10/19 [place] [address] General Practice INTERVENTIONAL CARDIOLOGY 03/21/18 10/24/18 documented as of this encounter
--- OUTSIDE RECORDS SUMMARY | 2024-04-23 05:23 | XMS_ITS | Encounter Summary ---
Author Organization [facility] Address [address] [place] [address]. [place], [place] [address] [place] [address] Care Team Providers Care Tobacco Blender Name Role Phone Vernon Mercedes MD Primary Care Provider [phone] Stanislaw Rhodes MD Unavailable Unavailab Evaristo Ying MD Unavailable UnavailRaul Suresh MD Unavailable UnavailMyah Elena NP Unavailable Unavailable Deven Cleary MD Unavailable Unavailable Encounter Details Date Type Department Care Team (Late st Contact Info) Description 06/21/[address] [facility] [address] [place] [address] Vernon Mercedes MD [address] [place] [phone] Social History Tobacco Use Types Packs/Day Years [...] Contact Info) Description 04/25/2024 11:00 AM RN COMMUNITY Appointment [facility] [address] [place] [address] Ti Bonilla MD [address] [place] [phone] 05/23/2024 3:30 PM RN COMMUNITY [facility] [address] [place] [address] Jyoti Escobar MD [address] [place] [address] documented as of this encounter Visit Diagnoses Diagnosis Type 2 or unspecified type diabetes mellitus ([facility]/HCC HHS/HCC) documented in this encounter Additional Health Concerns Infection Onset Date Last Indicated Resolved Time MRSA Comment:Negative MRSA 05/201903/11/2017 03/11/2017 10/03/2019 10:08 AM CDT documented as of this encounter Care Teams Tobacco Blender Relationship Specialty Start Date End Date Vernon Mercedes MD [address] [place] [address] PCP - General FAMILY PRACTICE 10/27/15 12/02/21 [place] [phone] CARDIOVASCULAR DISEASE 10/27/15 10/24/18 [place] [phone] [place] [employer] Pump Operator CARDIOVASCULAR DISEASE 08/19/16 [place] [address] CLINICAL CARDIAC ELECTROPHYSIOLOGY 06/16/17 Myah [place] [phone] CARDIOVASCULAR DISEASE 06/16/17 07/10/19 [place] [phone] [employer] INTERVENTIONAL CARDIOLOGY 03/21/18 10/24/18 documented as of this encounter
--- OUTSIDE RECORDS SUMMARY | 2024-04-23 05:23 | XMS_ITS | Encounter Summary ---
Author Organization [facility] Address [address] [place] [address]. [place] [address] [place] [address] Care Team Providers Care R Developer Name Role Phone Vernon Mercedes MD Primary Care Provider [phone] Stanislaw Rhodes MD Unavailable Unavailab Evaristo Ying MD Unavailable UnavailRaul Suresh MD Unavailable Unavailabl Myah Gee NP Unavailable Unavailable Encounter Details Date Type Department Care Team (Latest Contact Info) Description 04/01/2014 Abstract [facility] Social History Tobacco Use [...] st Contact Info) Description 04/25/2024 11:00 AM LOBBYIST Appointment [facility] [place] [address] Ti Bonilla MD [address] [place] [phone] 05/23/2024 3:30 PM LOBBYIST Office Visit [facility] [address] [place] [phone] Jyoti Escobar MD [address] [place] [address] documented as of this encounter Visit Diagnoses Not on filedocumented in this encounter Additional Health Concerns Infection Onset Date Last Indicated Resolved Time MRSA Comment:Negative MRSA 05/201903/11/2017 03/11/2017 10/03/2019 10:08 AM CDT documented as of this encounter Care Teams R Developer Relationship Specialty Start Date End Date Vernon Mercedes MD [address] [place] [phone] PCP - General FAMILY PRACTICE 10/27/15 12/02/21 Stanislaw [place] [place] [phone] CARDIOVASCULAR DISEASE 10/27/15 10/24/18 Evar[place] [phone] [place] [employer] Chief Executive Officer CARDIOVASCULAR DISEASE 08/19/16 Raul [place] [phone] CLINICAL CARDIAC ELECTROPHYSIOLOGY 06/16/17 [place] [address] CARDIOVASCULAR DISEASE 06/16/17 07/10/19 documented as of this encounter
== END 2024-04-16 06:20 | disposition home or self-care (01) ==
PROVIDERS: Emergency Provider Emergency Medicine; PCP Family Medicine
DX: S80.02XA Contusion of left knee, initial encounter (principal); W18.39XA Other fall on same level, initial encounter; J44.9 Chronic obstructive pulmonary disease, unspecified; I48.20 Chronic atrial fibrillation, unspecified; Z79.4 Long term (current) use of insulin; Z79.84 Long term (current) use of oral hypoglycemic drugs; Z79.51 Long term (current) use of inhaled steroids; Z96.652 Presence of left artificial knee joint
CPT/HCPCS: 73562; 99283; A9270

== ENCOUNTER 2024-09-17 11:36 | Outpatient (CLI) | payer MEDICARE, SELFPAY ==
--- NOTE | ~2024-09-17 | CT_ITS ---
EXAMINATION: CT abdomen pelvis wo con DATE: 09/17/2024 12:23 INDICATION: Left flank pain TECHNIQUE: Computed tomography (CT) of the abdomen and pelvis was performed without intravenous contr ast. Automated exposure control and iterative reconstruction technique were employed. The dose-length product was 1176.18 mGy-cm. COMPARISON: CT dated 04/20/2019 FINDINGS: Chronic pleural parenchymal scarring at the lateral margin of the lingula and anterobasilar left lowe r lobe. No interval change in a couple likely benign 6-7 mm abutting nodules at the lateral costophre do angle of the basilar left lower lobe. Heart size is normal. Atherosclerotic coronary artery disea se with possible stenting along the right coronary artery. No pericardial effusion. Mild bilateral gy necomastia. Diffuse hepatic steatosis with focal sparing along the gallbladder fossa. Gallbladder, sp lynnette, right kidney and bilateral adrenal glands are normal. There are couple stones in the lower pole the left kidney measuring 5 mm and 2 mm. No stones in the right kidney or bilateral ureters. No hydr onephrosis. A few dystrophic pancreatic parenchyma calcifications consistent with sequela of chronic pancreatitis. Mild sigmoid diverticulosis without adjacent from trace stranding to suggest diverticul itis. Small bowel and appendix are normal. Bladder is normal. Prostatomegaly measuring 5.2 x 3.8 cm. Several phleboliths in the pelvis. No free intraperitoneal gas or fluid. No pathologically enlarged a bdominal or pelvic lymphadenopathy. Mild lumbar and moderate lower thoracic spondylosis. IMPRESSION: 1. Nonobstructing left nephrolithiasis. 2. Diffuse hepatic steatosis. 3. Prostatomegaly. Reviewed, dictated and finalized at location A.
--- OUTSIDE RECORDS SUMMARY | 2024-09-17 12:03 | XMS_ITS | Continuity of Care Document ---
Author Organization [facility] Address [address] [place] [address] Phone Care Team Providers Care Plant Technical Specialist Name Role Phone Isaura Tamez Unavailable Unavailable Allergies, Adverse Reactions, Alerts Substance Reaction Status Criticality No Known allergies Medications Medication Instructions Dosage Effective Dates (start - stop) Status Comments metformin 850 mg Tab take 1 tablet (850MG) by ORAL route 2 times every day with morning and evening meals - Active metformin 850 mg Tab take 1 tablet (850MG) by ORAL route 2 times every day with morning and evening meals - Active Flomax 0.4 mg 24 hr Cap take 1 capsule (0.4MG) by ORAL route every day 1/2 hour following the same meal each day - Active atenolol 25 mg Tab take 1/2 tablet (25MG) by ORAL route every day - Active Zantac 150 mg Tab take 1 tablet (150MG) by ORAL route 2 times every day - Active metformin 850 mg Tab take 1 tablet (850MG) by ORAL route 2 times every day with morning and evening meals - No Longer Active Procedures Procedure Date OFFICE VISIT/EST LEVEL III OFFICE VISIT/EST LEVEL III OFFICE CONSULT/LEVEL III OFFICE VISIT/EST LEVEL IV OFFICE VISIT/EST LEVEL III OFFICE VISIT/EST LEVEL III METABOLIC PANEL: CHEM 19 LIPID PANEL GLYCOHEMOGLOBIN(A1C) ALBUMIN-URINE DIPSTICK QUICK STREP OFFICE VISIT/EST LEVEL IV COMPLETE CBC W/AUTO DIFF WBC COMPREHEN METABOLIC PANEL LIPID PANEL OFFICE VISIT/EST LEVEL IV FLU VACCINE, 3 YRS & > (Comm) 8 IMMUNIZATION ADMIN Advance Directives Directive Yes / No Effective Date File Name No Information Encounters Encounter Description Practice Location Reason(s) For Visit Diagnoses Date Provider Providers Copied on Encounter [facility], [address] [facility] [address], [place], [id number], [place] tel:[phone] [facility] No Information Oct-2 9-201 0 Rader PAC Isaura. [address] [place], [address], [place]. tel:[phone] OFFICE VISIT/EST LEVEL III [facility], [address], [id number], tel:[phone] [facility] No Information Mar-0 9-201 0 Rader PAC Isaura. [address] [place], [address], [place]. tel:[phone] [facility], [address] [address], [place], [place], [id number], tel:[phone] [facility] No Information Mar-0 5-201 0 Raedr PAC Isaura. [address] [place], [address], [place]. tel:[phone] OFFICE VISIT/EST LEVEL III [facility], [address] [facility] [address], [place], [id number], [place] tel:[phone] [facility] No Information Sep-0 8-200 9 Thad Bazan. [address] [place], [place], [id number], [place]. tel:[phone] OFFICE CONSULT/LEVEL III [facility], [address] [facility] [address], [place], [place], [id number], [place] tel:[phone] [facility] No Information 9 Rader PAC Isaura. [address] [place], [place], [facility], . tel:[phone] OFFICE VISIT/EST LEVEL IV [facility], [address] [facility] [address], [place], [place], [id number], [place] tel:[phone] 700 [facility] No Information 9 Rader PAC Isaura. [address] [place] [address], [facility], [place]. tel:[phone] OFFICE VISIT/EST LEVEL III [facility], [address] [facility] [address], [place], [place], [id number], tel:[phone] 700 [facility] No Information 9 Rader PAC Isaura. [address] [place] [address], [facility], . tel:[phone] OFFICE VISIT/EST LEVEL III [facility], [address] [place] [address], [place], [place], [id number], [place] tel:[phone] 700 [facility] No Information 9 Rader PAC Isaura. [address] [place] [address], [facility], . tel:[phone] OFFICE VISIT/EST LEVEL IV [facility], [address] [facility] [address], [place], [place], [id number], [place] tel:[phone] 700 [facility] No Information Dec-0 9-200 8 No Information [facility], [address] [facility] [address], [place], [place], [id number], [place] tel:[phone] 700 [facility] No Information Dec-0 3-200 8 Thad Bazan. [address] [place] [address], [id number], [place]. tel:[phone] OFFICE VISIT/EST LEVEL IV [facility], [address] [facility] [address], [place], [place], [id number], [place] tel:[phone] 700 [facility] No Information 8 Thad Bazan. [address] [place], [id number], [place]. tel:[phone] Family History Family Member Type Diagnosis Age At Onset No Information Payers Payer name Insurance type Covered republican ID Authorkaushik buttcasandra(s) Matthew LINDA [id number] Social History Type Description Quantity Date Captured Comments Sex Male Smoking Status No Information Chief Complaint And Reason For Visit No Information Reason For Referral Reason For Referral No Information History Of Present Illness Encounter Date Complaint History Of Prese nt Illness No Information Functional Status Date Functional Assessmen t No Information Instructions Date Instruction Additional Infor mation No Information Assessments Type Assessment Date No Information Patient Care Teams Name Effective Dates (start - stop) Status Members No Information
== END 2024-09-17 11:37 | disposition home or self-care (01) ==
LOC: CHSIMG 11:40
PROVIDERS: PCP Family Medicine; Visit Provider Family Medicine
DX: R10.9 Unspecified abdominal pain (principal); N20.0 Calculus of kidney; K76.0 Fatty (change of) liver, not elsewhere classified; N40.0 Benign prostatic hyperplasia without lower urinary tract symptoms
CPT/HCPCS: 74176

== ENCOUNTER 2024-10-16 12:47 | Outpatient (RCR) | payer MEDICARE, SELFPAY ==
--- NOTE | 2024-10-16 14:56 | OPREHPOC ---
Outpatient Therapy Plan of Care This is a Multidisciplinary Plan of Care that may contain components documented by all disciplines (PT, OT, and ST.) PT Problem 1 PT Problem #1 Knowledge Deficit PT Goal 1 Goal / Goal Update The patient will be independent in a home exercise program. Target Visit 4 PT Problem 2 PT Problem #2 Pain PT Goal 1 Goal / Goal Update The patient will report no greater than 4/10 cervical pain with head movements. Target Visit 12 PT Problem 3 PT Problem #3 Impaired Range of Motion PT Goal 1 Goal / Goal Update The patient will demonstrate 60 degrees of bilateral cervical rotation AROM to improve ability to see his environment. The patient will demonstrate 30 degrees of bilateral cervical lateral flexion AROM to decrease stress on the cervical spine. Target Visit 12 PT Problem 4 PT Problem #4 Impaired Functional Mobility PT Goal 1 Goal / Goal Update The patient will demonstrate 40% or less self perceived disability per the Neck Index questionnaire. Target Visit 12
--- NOTE | 2024-10-16 14:56 | PTOPEVAL1 ---
Assessment and note entered by Norma Sin PT Evaluation Information Assessment Status Evaluation ICD-10 Condition Codes (PT) Cervicalgia M54.2 Onset 09/25/24 Subjective Information Evaristo Zelaya reports he started having neck pain over a year ago and it is getting worse. He went to see Dr. Millard and was told he has arthritis around his discs. He was told he was not a candidate for surgery and was referred to PT. He had x-rays and CT scans done prior to seeing Dr. Millard. He notes the pain is worse with heat, turning his head, looking up, and lifting items. He has relied on his for help with driving and self care due to his breathing issues. He has been on oxygen for the last 8-9 months because he has had trouble breathing since having a cardiac ablation done. He has been undergoing various tests but they are not sure what is causing his breathing trouble. He is on oxygen all the time. He has been retired for 5 years. Reported Pain Level Pain Score 4: Self Report Assessment PT Clinical Summary Evaristo Zelaya presents with chronic neck pain that is gradually worsening. He has pain that increases with turning his head, looking up, and lifting items. He has had x-rays and reports he was diagnosed with degenerative disc disease. He objectively demonstrates decreased and painful cervical AROM and decreased posture. He also presents with decreased overall mobility but reports it is from difficulty breathing and cardiac issues. He will benefit from skilled PT to address these limitations. Plan of Care Interventions Electrical Stimulation,Manual Therapy,Mechanical Traction,Neuro Re-education,Patient/Caregiver Education,Therapeutic Activities,Therapeutic Exercise PT Services Indicated Yes Treatment Frequency and 2 times a week for 12 visits Duration These treatments will address the objective and functional deficits as defined above. The patient will be advanced safely and appropriately in order for the patient to progress towards his/her prior level of function. Additional exercises will be introduced and as well as a comprehensive home exercise program upon discharge, if needed, ?to ensure carryover of functional gains achieved in the clinic. This treatment plan has been reviewed and agreement upon by the patient.
--- NOTE | 2024-11-01 12:57 | PCPTNOTE ---
Patient called & cancelled scheduled appointment this date due to car in the shop. -Norma Sin, PT
--- NOTE | 2025-01-03 07:36 | PCPTNOTE ---
pt attends 3 visits of skilled PT for cervicalgia. Left message for pt to get on schedule, but have not heard back. pt's auth on 12/11/24. pt is being discharged from therapy.
== END 2024-10-29 11:10 | disposition home or self-care (01) ==
LOC: CHSPT 12:47
DX: M54.2 Cervicalgia (principal)
CPT/HCPCS: 97014; 97110; 97140; 97162; G0283